=== PATIENT | male | born 1975 | race Two or more races ===

== ENCOUNTER 2023-08-22 18:46 | Inpatient (IN) | payer BC ==
[~2023-08-22] VITALS: Ht 172.7 cm; Wt 62.7 kg
[2023-08-22 19:14] LABS: Basophils # (auto) 0.3 10 ^3/uL (0-0.2); Basophils % (auto) 2.8 % (0.0-2.0); Eosinophils # (auto) 0.3 10 ^3/uL (0-0.8); Eosinophils % (auto) 3.2 % (0.0-7.0); Hemoglobin 13.1 g/dL (13.5-17.5); Lymphocytes # (auto) 2.7 10 ^3/uL (0.4-5.4); Lymphocytes % (auto) 24.7 % (10.0-50.0); Mean Corpuscular Hemoglobin 29.4 pg (28.0-32.0); Mean Corpuscular Hgb Conc. 33.7 g/dL (32.0-36.0); Mean Corpuscular Volume 87.4 fL (80.0-100.0); Monocytes # (auto) 0.9 10 ^3/uL (0-1.3); Monocytes % (auto) 8.1 % (0.0-12.0); Neutrophils # (auto) 6.6 10 ^3/uL (1.6-8.6); Neutrophils % (auto) 61.2 % (37.0-80.0); Nucleated Red Blood Cells % 0.1 %; Red Blood Cells 4.46 10^6/uL (4.5-5.90); Red Cell Distribution Width 14.1 % (11.8-14.3); White Blood Cell 10.8 10^3/uL (4.4-10.8)
[2023-08-22] MEDS: IOHEXOL 350 MG/ML 100ML IJ ONE (19:20)
[2023-08-22 19:33] LABS: Alanine Aminotransferase 14 U/L (7-40); Albumin 4.1 g/dL (3.2-4.8); Alkaline Phosphatase 97 U/L (46-116); Anion Gap 4 (5-15); Aspartate Aminotransferase 16 U/L (13-40); BUN/Creatinine Ratio 10.3 (10.0-20.0); Bilirubin, Total 0.8 mg/dL (0.2-1.0); Blood Urea Nitrogen 15 mg/dL (9-23); Calcium 9.2 mg/dL (8.7-10.4); Carbon Dioxide 28 mmol/L (20-30); Chloride 106 mmol/L (98-107); Glucose 100 mg/dL (74-106); Potassium 3.7 mmol/L (3.5-5.1); Sodium 138 mmol/L (136-145); Total Protein 7.1 g/dL (5.7-8.2)
[2023-08-22 19:40] VITALS: PULSE 104; RESP 22; O2SAT 98
[2023-08-22] MEDS: LABETALOL HCL 5 MG/ML 4ML SYRINGE IV ONE (19:53)
[2023-08-22] MEDS: LORazepam 2MG/ML-1ML VIAL IV ONE (20:56)
[2023-08-22 20:57] LABS: Urine Bacteria None Seen /hpf (None Seen)
[2023-08-22 21:04] LABS: Urine Blood Negative /uL (Negative); Urine Clarity Clear (Clear); Urine Color Colorless (Yellow); Urine Protein, UAD Negative (Negative); Urine Specific Gravity 1.015 (1.001-1.035); Urine Urobilinogen Normal (Negative); Urine WBC <1 /hpf (0 - 3)
[2023-08-22 21:23] LABS: Amphetamine Screen, Urine Neg (NEGATIVE); Benzodiazephine Screen, Urine Neg (NEGATIVE)
[2023-08-22 21:24] LABS: Barbiturate Scree,Urine Neg (NEGATIVE); Cannabinoid Screen, Urine Neg (NEGATIVE); Cocaine Screen, Urine Neg (NEGATIVE); Opiate Scree,Urine Neg (NEGATIVE); Phencyclidine Screen, Urine Neg (NEGATIVE)
[2023-08-22] MEDS ORDERED: ONDANSETRON HCL 4 MG/2 ML VIAL IV PRN (21:30)
[2023-08-22] MEDS ORDERED: MORPHINE SULFATE INJ 2 MG/ml SYRG IV PRN (21:30)
[2023-08-22] MEDS ORDERED: NITROGLYCERIN 0.4 MG SL TAB SL PRN (21:30)
[2023-08-22] MEDS ORDERED: TEMAZEPAM 15 MG CAP PO PRN (21:30)
[2023-08-22] MEDS ORDERED: ACETAMINOPHEN 325 MG TAB PO PRN (21:30)
[2023-08-22] MEDS: hydrALAZINE HCL 20 MG/ML VL IV PRN (22:20)
[2023-08-23] VITALS (10 sets, daily range): BP systolic 151–179; BP diastolic 91–109; PULSE 85–104; RESP 12–18; TEMP 97.7–98.4; O2SAT 97–99
[2023-08-23 05:21] LABS: Chloride 107 mmol/L (98-107); Potassium 3.4 mmol/L (3.5-5.1); Sodium 138 mmol/L (136-145)
[2023-08-23 05:22] LABS: Anion Gap 5 (5-15); Calcium 9.3 mg/dL (8.7-10.4); Carbon Dioxide 26 mmol/L (20-30)
[2023-08-23 05:27] LABS: BUN/Creatinine Ratio 8.1 (10.0-20.0); Blood Urea Nitrogen 12 mg/dL (9-23); Glucose 98 mg/dL (74-106)
[2023-08-23] MEDS: ASPirin 81 mg TAB PO SCH (09:57)
[2023-08-23] MEDS: LISINOPRIL 5 MG TAB PO SCH (09:58)
[2023-08-23 10:47] LABS: Magnesium 2.2 mg/dL (1.6-2.6)
[2023-08-23] MEDS: hydrALAZINE HCL 20 MG/ML VL IV PRN (13:33)
[2023-08-23] MEDS: MIDAZOLAM HCL 2MG/2ML 2ml VIAL (1mg/ml) ONE (16:23)
[2023-08-23] MEDS: LIDOCAINE VISCOUS 2% 15ML UD PO ONE (16:29)
[2023-08-23] MEDS: MIDAZOLAM HCL 2MG/2ML 2ml VIAL (1mg/ml) IV ONE (16:30)
[2023-08-23] MEDS: fentaNYL CITRATE 100 MCG/2 ML VL IV ONE (16:33)
[2023-08-23] MEDS: ATORVASTATIN 20 MG TAB PO SCH (22:09)
[2023-08-24] VITALS (9 sets, daily range): BP systolic 129–175; BP diastolic 80–108; PULSE 79–90; RESP 16–18; TEMP 97.5–98; O2SAT 96–99
[2023-08-24] MEDS: ASPirin-EC 81 mg tab PO SCH (08:27)
[2023-08-24] MEDS: CLOPIDOGREL BISULFATE 75 MG TAB PO SCH (08:28)
[2023-08-24] MEDS: NIFEdipine ER 30 MG TAB PO ONE (12:53)
[2023-08-25 05:00] VITALS: BP 187/110; PULSE 83; RESP 22; TEMP 97.8; O2SAT 97
[2023-08-25] MEDS ORDERED: hydrALAZINE HCL 20 MG/ML VL IV PRN (07:30)
[2023-08-25 08:00] VITALS: PULSE 88
[2023-08-25 08:57] VITALS: BP 140/82; PULSE 93; RESP 21; TEMP 98.1; O2SAT 98
[2023-08-25] MEDS: NIFEdipine ER 30 MG TAB PO SCH (09:57)
[2023-08-25 12:41] VITALS: BP 157/109; PULSE 94; RESP 17; TEMP 97.4; O2SAT 98
[2023-08-25] MEDS ORDERED: LISI-275 PO (14:46)
[2023-08-25] MEDS ORDERED: ATOR20TA50 PO (14:46)
[2023-08-25] MEDS ORDERED: ASPI-543 PO (14:46)
[2023-08-25] MEDS ORDERED: CLOP75TA70 PO (14:46)
[2023-08-25] MEDS ORDERED: NIFE1TAB31 PO (14:46)
== END 2023-08-25 15:34 | disposition home or self-care (01) | DRG 69 ==
LOC: ER 18:46 → TELE 21:20 → TELE-WESTW 08-23 09:29
PROVIDERS: ADMIT Nurse Practitioner; ATTEND Internal Medicine
DX: G45.9 Transient cerebral ischemic attack, unspecified (principal); I21.A1 Myocardial infarction type 2; I16.0 Hypertensive urgency; E78.5 Hyperlipidemia, unspecified; F10.10 Alcohol abuse, uncomplicated; F17.200 Nicotine dependence, unspecified, uncomplicated; F15.10 Other stimulant abuse, uncomplicated; Z79.899 Other long term (current) drug therapy; Z82.49 Family history of ischemic heart disease and other diseases of the circulatory system; Z79.82 Long term (current) use of aspirin; Z86.73 Personal history of transient ischemic attack (TIA), and cerebral infarction without residual deficits; Z83.3 Family history of diabetes mellitus; W18.39XA Other fall on same level, initial encounter; Y93.01 Activity, walking, marching and hiking; Y99.8 Other external cause status; Y92.009 Unspecified place in unspecified non-institutional (private) residence as the place of occurrence of the external cause; Y90.9 Presence of alcohol in blood, level not specified
CPT/HCPCS: 36415; 70496; 70551; 71045; 80048; 80053; 80061; 80307; 81001; 83036; 83605; 83735; 83880; 84443; 84484; 85025; 85379; 87040; 93005; 93312; 95819; 96374; 96375; 99152; G0378; J2250; J3490

== ENCOUNTER → 2023-12-06 | Outpatient (CLI) | payer BC ==
[~2023-12-06] MED LIST: ASPI-543 PO; ATOR20TA50 PO; CLOP75TA70 PO; LISI-275 PO; NIFE1TAB31 PO
[2023-12-06 10:48] LABS: Folate (Folic Acid) 9.65 ng/mL (>5.38)
== END | disposition home or self-care (01) ==
LOC: LAB 09:12
PROVIDERS: ATTEND Psychiatry & Neurology Neurology
DX: R41.3 Other amnesia (principal)
CPT/HCPCS: 82607; 82746

== ENCOUNTER → 2023-12-27 | Outpatient (CLI) | payer BC | END | disposition home or self-care (01) | LOC: XYW 10:49 | PROVIDERS: ATTEND Internal Medicine Pulmonary Disease | DX: J44.9 Chronic obstructive pulmonary disease, unspecified (principal) | CPT/HCPCS: 94060; 94727; 94729 ==

== ENCOUNTER → 2024-08-28 | Outpatient (CLI) | payer BC ==
[2024-08-28 12:07] LABS: Basophils # (auto) 0.3 10 ^3/uL (0-0.2); Basophils % (auto) 2.4 % (0.0-2.0); Eosinophils # (auto) 0.3 10 ^3/uL (0-0.8); Hemoglobin 14.8 g/dL (13.5-17.5); Lymphocytes # (auto) 2.1 10 ^3/uL (0.4-5.4); Lymphocytes % (auto) 18.4 % (10.0-50.0); Mean Corpuscular Hemoglobin 30.5 pg (28.0-32.0); Mean Corpuscular Hgb Conc. 34.4 g/dL (32.0-36.0); Mean Corpuscular Volume 88.7 fL (80.0-100.0); Monocytes # (auto) 0.8 10 ^3/uL (0-1.3); Monocytes % (auto) 6.6 % (0.0-12.0); Neutrophils # (auto) 7.9 10 ^3/uL (1.6-8.6); Neutrophils % (auto) 69.6 % (37.0-80.0); Nucleated Red Blood Cells % 0.1 %; Platelet Count (auto) 226 10^3/uL (140-450); Red Blood Cells 4.85 10^6/uL (4.5-5.90); Red Cell Distribution Width 14.3 % (11.8-14.3); White Blood Cell 11.4 10^3/uL (4.4-10.8)
[2024-08-28 12:28] LABS: Alanine Aminotransferase 34 U/L (7-40); Albumin 4.7 g/dL (3.2-4.8); Alkaline Phosphatase 102 U/L (46-116); Anion Gap 2 (5-15); Aspartate Aminotransferase 22 U/L (13-40); BUN/Creatinine Ratio 10.8 (10.0-20.0); Blood Urea Nitrogen 16 mg/dL (9-23); Calcium 9.8 mg/dL (8.7-10.4); Carbon Dioxide 25 mmol/L (20-31); Chloride 103 mmol/L (98-107); Glucose 97 mg/dL (74-106); Potassium 4.7 mmol/L (3.5-5.1); Sodium 130 mmol/L (136-145); Total Protein 7.5 g/dL (5.7-8.2)
[2024-08-28 12:29] LABS: Bilirubin, Total 0.8 mg/dL (0.2-1.0)
[2024-08-28 16:35] LABS: Triglycerides 92 mg/dL (< 150)
[2024-08-28 16:36] LABS: Cholesterol 135 mg/dL (< 200); HDL Cholesterol 43 mg/dL (40-59); LDL Cholesterol 76 mg/dL (< 100)
== END | disposition home or self-care (01) ==
LOC: LAB 11:47
PROVIDERS: ATTEND Nurse Practitioner Family
DX: I10 Essential (primary) hypertension (principal); J44.9 Chronic obstructive pulmonary disease, unspecified; Z00.01 Encounter for general adult medical examination with abnormal findings
CPT/HCPCS: 36415; 80053; 80061; 84153; 84443; 85025

== ENCOUNTER 2024-10-04 06:17 | Inpatient (IN) | payer BC ==
[~2024-10-04] VITALS: Ht 170.2 cm; Wt 51.1 kg
[2024-10-04] VITALS (43 sets, daily range): BP systolic 59–162; BP diastolic 20–102; PULSE 45–117; RESP 10–24; TEMP 84.1–99.7; O2SAT 90–100
[~2024-10-04 06:17] MED LIST changes: +ESCI1TAB36 PO; +LISI20TA56 PO
[2024-10-04 07:29] LABS: Hematocrit 13.1 % (41.0-53.0); Mean Corpuscular Hemoglobin 28.5 pg (28.0-32.0); Mean Corpuscular Volume 86.6 fL (80.0-100.0)
[2024-10-04] MEDS: SODIUM CHLORIDE 0.9% 2,000 ML IV ONE (07:34)
[2024-10-04 07:35] LABS: Hemoglobin 4.3 g/dL (13.5-17.5)
[2024-10-04 07:44] LABS: Alanine Aminotransferase 21 U/L (7-40); Alkaline Phosphatase 50 U/L (46-116); Anion Gap 13 (5-15); BUN/Creatinine Ratio 46.9 (10.0-20.0); Potassium 4.1 mmol/L (3.5-5.1)
--- NOTE | 2024-10-04 07:44 | ED.PDOC ---
History of Present Illness HPI Comments 48-year-old male BIBA with prior medical history of hypertension, high lipids, CVA-August,, currently has memory loss and the chief complaint of syncope x2. Per EMS the patient had two syncopal episodes, today, 1st one was when the patient will was walking into the restroom and the 2nd being when the patient was sitting on the ground and leaned forward. EMS state that the patient has an abrasion on the left knee, [id number] and was given 300 mL of sodium chloride in route. EMS note that the patient has been taking his medication regularly, and seen his PCP last week. Patient states on having nausea and vomiting. Patient's spouse, stating that the patient has lost his appetite, has been weak, and had a syncopal episode in the past due from standing up too fast (one week ago). In the ER the patient was hypotensive in the 87/53 and an Accu-Chek of 222. Denies chills, fever, /D, SOB, CP, neck pain, back pain. No other ass ociated symptoms, modifiers, recent injuries or sick contacts present at this time. Chief Complaint: Syncope Time Seen by MD: 06:30 Reviewed Notes: Nurses Notes, Upholstery Parts Sorter Notes, Medications, Allergies Allergies: Coded Allergies: NO KNOWN ALLERGIES (Unverified , 08/22/23) Home Meds Active Scripts Nifedipine (Nifedipine Er) 30 Mg Tab, 30 MG PO BID for 30 Days, #60 TAB 6 Refills Prov:JASE HALE DO 08/25/23 Lisinopril (Lisinopril) 5 Mg Tab, 10 MG PO DAILY for 30 Days, #60 TAB 6 Refills Prov:JASE HALE DO 08/25/23 Clopidogrel Bisulfate (CLOPIDOGREL) 75 Mg Tab, 75 MG PO DAILY for 30 Days, #30 TAB 6 Refills Prov:JASE HALE DO 08/25/23 Atorvastatin Calcium (ATORVASTATIN CALCIUM) 20 Mg Tab, 20 MG PO HS for 30 Days, #30 TAB 6 Refills Prov:JASE HALE DO 08/25/23 Aspirin (Aspir-Low) 81 Mg Tab, 81 MG PO DAILY for 30 Days, #30 TAB 1 Refill Prov:JASE HALE DO 08/25/23 Information Source: Patient, Emergency Med Personnel, Spouse Mode of Arrival: EMS Severity: Moderate Timing: Minutes Duration: Since onset, Minutes Prehospital treatment: Other (Sodium chloride) Past Medical History PAST MEDICAL HISTORY: CVA (In August of 2023, left with memory loss), High Lipids, HTN Surgical History: Denies all surgeries Family History Family History: Reviewed,noncontributory to illness, Unknown Social History Smoker: Non-Smoker Alcohol: Sober Drugs: Denies Drug Use Lives In: Home Constitutional: denies: chills, diaphoresis, fatigue, fever, malaise, sweats, weakness, others EENTM: denies: blurred vision, double vision, ear bleeding, ear discharge, ear drainage, ear pain, ear ringing, eye pain, eye redness, hearing loss, mouth pain, mouth swelling, nasal discharge, nose bleeding, nose congestion, nose pain, photophobia, tearing, throat pain, throat swelling, voice changes, others Respiratory: denies: cough, hemoptysis, orthopnea, SOB at rest, shortness of breath, SOB with excertion, stridor, wheezing, others Cardiovascular: reports: syncope; denies: chest pain, dizzy spells, diaphoresis, Dyspnea on exertion, edema, irregular heart beat, left arm pain, lightheadedness, palpitations, PND, others Gastrointestinal: reports: nausea, vomiting; denies: abdomen distended, abdominal pain, blood streaked bowels, constipated, diarrhea, dysphagia, difficulty swallowing, hematemesis, melena, poor appetite, poor fluid intake, rectal bleeding, rectal pain, others Genitourinary: denies: burning, dysuria, flank pain, frequency, hematuria, incontinence, penile discharge, penile sore, pain, testicle pain, testicle swelling, urgency, others Neurological: denies: dizziness, fainting, headache, left sided numbness, left sided weakness, numbness, paresthesia, pre-existing deficit, right sided numbness, right sided weakness, seizure, speech problems, tingling, tremors, weakness, others Musculoskeletal: denies: back pain, gout, joint pain, joint swelling, muscle pain, muscle stiffness, neck pain, others Integumetry: denies: bruises, change in color, change in hair/nails, dryness, laceration, lesions, lumps, rash, wounds, others Allergic/Immunocompromised: denies: Difficulty Healing, Frequent Infections, Hives, Itching, others Hematologic/Lymphatic: denies: anemia, blood clots, easy bleeding, easy bruising, swollen glands, others Endocrine: denies: excessive hunger, excessive sweating, excessive thirst, excessive urination, flushing, intolerance to cold, intolerance to heat, unexplained weight gain, unexplained weight loss, others Psychiatric: denies: anxiety, bipolar disorder, depression, hopeless, panic disorder, schizophrenia, sleepless, suicidal, others All Other Systems: Reviewed and Negative Physical Exam Exam Comments Pale-appearing, nontender C, T, L-spine General Appearance: Moderate Distress, Normal HEENT: Normal ENT Inspection, Pharynx Normal, TMs Normal Neck: Full Range of Motion, Non-Tender, Normal, Normal Inspection Respiratory: Chest Non-Tender, Lungs Clear, No Accessory Muscle Use, No Respiratory Distress, Normal Breath Sounds Cardiovascular: No Edema, Normal Peripheral Pulses, Regular Rate/Rhythm Breast Exam: Deferred Gastrointestinal: Non Tender, No Pulsatile Mass, Soft Genitalia: Deferred Pelvic: Deferred Rectal: Deferred Extremities: No calf tenderness, Normal inspection, Normal range of motion, Non-tender, No pedal edema, Other (Nontender CT and L-spine) Musculoskeletal : Apperance: Normal Neurologic: Alert, No Motor Deficits, Normal Affect, Normal Mood, No Sensory Deficits Cerebellar Function: Normal Reflexes: Normal Skin: Dry, Pallor, Other (Cold) Lymphatic: No Adenopathy Was a procedure done? Was a procedure done?: Yes Sedation Sedation?: Yes Informed consent obtained: Yes Sedation start time: 08:52 Sedation end time: 09:15 (Patient is still under sedation at this time) Sedation total time: Unknown due from patient being under sedation at this time Intubation Intubation size: cm (7.5 tube, 23 at lip) Informed consent obtained: Yes EKG EKG : Pulse Rate (adult): 102 [place]: Normal Cardiac Rhythm: ST, PVC's Block: None Hypertrophy: None ST: Normal Differential Dx Considerations may include: Sepsis, anemia, dehydration, gastroenteritis, electrolyte abnormality, STEMI, NSTEMI, shock, UTI, pneumonia, kidney failure, heart failure, syncope, heart block X-Ray, Labs, Meds, VS Vital Signs Date Time Temp Pulse Resp B/P (MAP) Pulse Ox O2 Delivery O2 Flow Rate FiO2 10/04/24 11:22 94.1 108 22 107/47 (67) 97 94.1 10/04/24 11:09 109 18 107/45 (65) 60 10/04/24 11:07 94.1 109 22 107/45 (65) 97 94.1 10/04/24 10:56 94.3 109 22 104/45 94.3 10/04/24 10:56 94.3 109 22 104/45 94.3 10/04/24 10:41 93.9 110 18 117/52 93.9 10/04/24 10:40 117/52 10/04/24 10:37 110 22 117/52 (73) 60 10/04/24 10:37 109 22 117/52 (73) 97 10/04/24 10:03 109 22 109/35 (59) 97 10/04/24 09:52 84.1 110 22 81/20 84.1 10/04/24 09:40 110 28 81/20 (40) 97 10/04/24 09:00 101/38 10/04/24 08:55 111 12 100 10/04/24 08:54 113 28 101/38 (59) 90 10/04/24 08:49 45 10 59/20 (33) 90 10/04/24 08:44 93.9 45 10 59/20 93.9 10/04/24 08:31 64 23 96/58 (71) 86 10/04/24 08:14 67 27 74/36 (49) 10/04/24 08:04 85 34 71/37 (48) 95 10/04/24 08:00 86 10/04/24 07:50 77/42 10/04/24 07:44 102 10/04/24 07:43 89 39 81/47 (58) 96 10/04/24 07:34 91 42 75/44 (54) 98 10/04/24 07:17 93 14 91 Nasal Cannula* 2 28 10/04/24 07:14 97.5 93 14 86/46 (59) 93 97.5 10/04/24 06:25 102 10/04/24 06:17 97.7 96 16 97/60 (72) 99 97.7 Lab Test 10/04/24 09:57 10/04/24 08:35 10/04/24 08:31 10/04/24 08:05 Range/Units Blood Gas Specimen Type Arterial Arterial Blood Gas Sample Site Right radial Left radial Blood Gas Patient Temperature 37.0 37.0 Arterial Blood Date Drawn [id number] Arterial Blood pH 6.857 *L 7.112 *L 7.350-7.450 Arterial Blood Partial Pressure CO2 51.7 H 33.8 L 35.0-48.0 mmHg Arterial Blood Partial Pressure O2 337.3 *H 89.5 83.0-108.0 mmHg Arterial Blood HCO3 9.0 L 10.5 L 21.0-28.0 mmol/L Arterial Blood Oxygen Saturation 99.3 H 90.9 L 94.0-98.0 % Arterial Blood Base Excess -23.1 L -17.3 L -2.0-3.0 mmol/L Arterial Blood Oxyhemoglobin 97.6 89.1 L 94.0-98.0 % Arterial Blood Carboxyhemoglobin 0.3 L 0.8 0.5-1.5 % Arterial Blood Methemoglobin 1.4 1.2 0.0-1.5 % Ke Test Modified Yes Blood Gas Total Hemoglobin 7.40 L 5.30 *L 13.5-17.5 g/dL Blood Gas Set Respiration Rate 12.0 Blood Gas Modality Vent - ac Nasal cannula FiO2 % 100.0 24.0 Blood Gas Tidal Volume 450.0 Blood Gas PEEP or CPAP 5.0 Blood Gas Critical Value Read Back yes yes Blood Gas Notified Whom md mary rain md Blood Gas Notified Time [id number] Blood Gas Notified By narendra roque, china roque, [place] POC Glucose 165 H 70-106 mg/dl Reticulocyte Count (auto) 5.51 H 0.5-1.5 % Hemoglobin A1c 5.6 <5.7 % A1C Troponin I High Sensitivity 359 *H </=54 ng/L Test 10/04/24 07:01 10/04/24 06:35 Range/Units White Blood Count 16.8 H 4.4-10.8 10^3/uL Red Blood Count 1.52 L 4.5-5.90 10^6/uL Hemoglobin 4.3 *L 13.5-17.5 g/dL Hematocrit 13.1 L 41.0-53.0 % Mean Corpuscular Volume 86.6 80.0-100.0 fL Mean Corpuscular Hemoglobin 28.5 28.0-32.0 pg Mean Corpuscular Hemoglobin Concent 32.9 32.0-36.0 g/dL Red Cell Distribution Width 13.1 11.8-14.3 % Platelet Count 414 140-450 10^3/uL Mean Platelet Volume 7.4 6.9-10.8 fL Neutrophils (%) (Auto) 37.0-80.0 % Lymphocytes (%) (Auto) 10.0-50.0 % Monocytes (%) (Auto) 0.0-12.0 % Basophils (%) (Auto) 0.0-2.0 % Neutrophils # (Auto) 1.6-8.6 10 ^3/uL Lymphocytes # (Auto) 0.4-5.4 10 ^3/uL Monocytes # (Auto) 0-1.3 10 ^3/uL Differential Total Cells Counted 100.0 100 Neutrophils % (Manual) 72 37.0-80.0 Band Neutrophils % (Manual) 5 Lymphocytes % (Manual) 18 10.0-50.0 Monocytes % (Manual) 5 0-12 Eosinophils % (Manual) 0 0-7 Basophils % (Manual) 0 0.0-2.0 Metamyelocytes % (manual) 0 Myelocytes % (Manual) 0 Promyelocytes % (Manual) 0 Blast Cells % (Manual) 0 Reactive Lymphocytes 0 Platelet Estimate Adequate Red Blood Cell Morphology Normal Sodium Level 122 L 136-145 mmol/L Potassium Level 4.1 3.5-5.1 mmol/L Chloride Level 92 L 98-107 mmol/L Carbon Dioxide Level 17 L 20-31 mmol/L Anion Gap 13 5-15 Blood Urea Nitrogen 99 *H 9-23 mg/dL Creatinine 2.11 H 0.700-1.30 mg/dL Glomerular Filtration Rate Calc 37 >90 mL/min BUN/Creatinine Ratio 46.9 H 10.0-20.0 Serum Glucose 219 H 74-106 mg/dL Calcium Level 7.2 L 8.7-10.4 mg/dL Iron Level 22 L 65-175 ug/dL Total Iron Binding Capacity 243 L 250-425 ug/dL Percent Iron Saturation 9.1 L 20-55 % Ferritin 47.6 22-322 ng/mL Total Bilirubin 0.3 0.2-1.0 mg/dL Aspartate Amino Transferase (AST) 21 13-40 U/L Alanine Aminotransferase (ALT) 21 7-40 U/L Alkaline Phosphatase 50 46-116 U/L Troponin I High Sensitivity 365 *H </=54 ng/L Total Protein 5.0 L 5.7-8.2 g/dL Albumin 2.9 L 3.2-4.8 g/dL POC Glucose 222 H 70-106 mg/dl Current Medications Medications (Trade) Dose Ordered Sig/Wally Route Start Time Stop Time Status Last Admin Diagnostic Test (Pha) (Accu-Chek Comfort Curve T) 1 strip ONCE ONCE 10/04/24 07:00 10/04/24 07:01 DC 10/04/24 08:32 Sodium Chloride 2,000 ml @ 1,000 mls/hr Q2H ONCE IV 10/04/24 07:00 10/04/24 08:59 DC 10/04/24 07:34 Norepinephrine Bitartrate 250 ml @ 3.75 mls/hr Q24H IV 10/04/24 08:00 10/04/24 07:50 Ceftriaxone Sodium 50 ml @ 100 mls/hr ONCE ONCE IV 10/04/24 08:00 10/04/24 08:29 DC 10/04/24 08:32 Rocuronium [employer] 100 mg ONCE ONCE IV 10/04/24 09:00 10/04/24 09:01 DC 10/04/24 09:00 Etomidate 20 mg ONCE ONCE IV 10/04/24 09:00 10/04/24 09:01 DC 10/04/24 09:00 Atropine Sulfate (Atropine Sulfate) 1 mg ONCE ONCE IV 10/04/24 09:45 10/04/24 09:46 DC 10/04/24 08:50 Fentanyl Citrate 250 ml @ 2.5 mls/hr Q24H IV 10/04/24 09:45 10/04/24 10:40 Sodium Bicarbonate 50 ml ONCE ONCE IV 10/04/24 11:30 10/04/24 11:31 DC 10/04/24 11:41 Metronidazole 100 ml @ 100 mls/hr ONCE ONCE IV 10/04/24 11:30 10/04/24 12:29 DC 10/04/24 11:45 48-year-old male presents here status post syncopal episode at home and with the EMS. I was asked to immediately see the patient upon EMS arrival as patient appeared critical. Patient was found to be pale. Blood pressure was in the low 80s on my initial evaluation after a 400 cc bolus of NS by EMS. Patient was immediately taken to a bed. Blood work has been done including a CBC CMP blood culture urine culture troponin. At this time that are multiple abnormalities in the lab work including a extremely severe hemoglobin of 4.3. He also has a leukocytosis of 16. Hyponatremia of 122, chloride level of 92, CO2 of 17 BUN of 99 with creatinine of 2. He is also very hypocalcemic. While in the ER his blood pressure but has been in the low 70s. Patient was started on Levophed IV. Patient was immediately started on sepsis protocol including blood cultures urine culture and broad-spectrum antibiotic. Unable to place a central line due to severe risk of bleeding and can not risks anymore blood loss given his low hemoglobin of 4.3. Patient was given a total of 700 cc of IV fluids prior to hemoglobin returning at 4.3. Immediately type and cross was done and he has been in close contact with blood bank for stat blood. However at this time blood pressure continues to be extremely low and undetectable despite Levophed. Black blood has been ordered and given. Despite starting Levophed, patient continued to have low blood pressure. Patient's mental status began to decline. Patient was intubated. Please see procedure note. Prior to this differential also included AAA as well as aortic dissection in addition to sepsis sepsis shock, electrolyte abnormality, small-bowel obstruction, acute coronary syndrome, dehydration, heart block, anemia. Bedside ultrasound was done unable to visualize the aorta. CT abdomen pelvis with IV contrast was finally able to be performed once we are able to increase his blood pressure and after patient was intubated. At this time there was no evidence of AAA or dissection but there was evidence of perforated viscus in the abdomen. Immediately I consulted general surgery. I spoke to Dr. Serrano. While caring for him, multiple ABGs were performed that required active intervention by me, including management of his vent. was at bedside during the entire patient care and I was able to have multiple conversations with the family including patient's brother, they are aware of the patient's critical status. He is currently full code. At this time hospitalist team has been contacted for ICU admission. Time of 1ST Reevaluation: 07:00 Reevaluation 1ST: Unchanged Reevaluation 2ND: Unchanged Patient Education/Counseling: Diagnosis, Treatment, Prognosis Family Education/Counseling: Diagnosis, Treatment, Prognosis Departure 1 Departure Time of Disposition: 08:26 Impression: Primary Impression: Shock Additional Impressions: Severe anemia Hyponatremia Acute kidney injury Syncope Qualified Codes: R55 - Syncope and collapse Altered mental status Qualified Codes: R40.4 - Transient alteration of awareness Perforated viscus NSTEMI (non-ST elevated myocardial infarction) GI bleed Qualified Codes: K92.2 - Gastrointestinal hemorrhage, unspecified Septic shock Disposition: ADMITTED INPATIENT Admit to: ICU Condition: Critical Critical Care Note Critical Care Time?: Yes (180 min-critical care time only) Critical care comment: Time spent immediately evaluating the patient upon EMS arrival to the ER as patient is unstable due to his hypotension. Patient found to be pale and hypotensive in the 80s and actively syncopized ON INITIAL EVALUATION. Multiple re-evaluations required. Multiple interventions required to stabilize the patient. Patient continued to be hypotensive during his stay requiring intensive management of care by myself including interpretation of blood work, imaging test, managing his hypotension, managing mental status, management of his care. Time spent speaking to patient, family, nursing staff, EMS, admitting team, radiology, blood bank, general surgery. Stability Stability form required: No Heart Score Heart Score: Heart Score Response (Comments) Value History Slightly Suspicious 0 EKG Repolarization Disturb 1 Age 45-64 1 Risk Factors 1 or 2 risk factors 1 Troponin 1-2 x's Normal limit 1 Total 4 I personally scribed for RALPH SANCHEZ MD ([email or web address]) on 10/04/24 at 07:44. Electronically submitted by Guerrero Molina ([facility]). I personally scribed for RALPH SANCHEZ MD ([email or web address]) on 10/04/24 at 09:15. Electronically submitted by Guerrero Molina ([email or web address]). I personally scribed for RALPH SANCHEZ MD ([email or web address]) on 10/04/24 at 11:22. Electronically submitted by Deven Rueda ([email or web address]). RALPH SANCHEZ MD October 04, 2024 07:44
[2024-10-04 07:45] LABS: Albumin 2.9 g/dL (3.2-4.8); Bilirubin, Total 0.3 mg/dL (0.2-1.0); Calcium 7.2 mg/dL (8.7-10.4); Carbon Dioxide 17 mmol/L (20-31); Chloride 92 mmol/L (98-107); Glucose 219 mg/dL (74-106); Sodium 122 mmol/L (136-145); Total Protein 5.0 g/dL (5.7-8.2)
[2024-10-04 07:46] LABS: Blood Urea Nitrogen 99 mg/dL (9-23)
[2024-10-04] MEDS: NOREPINEPHRINE 8 MG/250ML KIT 250 ML IV SCH (07:50)
[2024-10-04] MEDS: NOREPINEPHRINE 8 MG/250ML KIT 250 ML IV ONE (07:50)
[2024-10-04] MEDS: cefTRIAXone 1GM/50ML D5W 50 ML IV ONE (08:32)
[2024-10-04] MEDS: ACCU-CHEK COMFORT CURVE STRIP VI ONE (08:32)
[2024-10-04 08:36] LABS: RBC Morphology Normal; Total Cells Counted 100.0 (100)
[2024-10-04] MEDS: ETOMIDATE (2MG/ML) 20ML VIAL IV ONE ×2 (08:38→09:00)
[2024-10-04] MEDS: ROCURONIUM 10MG/ML 10ML VIAL IV ONE ×2 (08:39→09:00)
[2024-10-04 08:40] LABS: Base Excess -17.3 mmol/L (-2.0-3.0)
[2024-10-04] MEDS: ATROPINE SULF 1 MG/10ml SYR ONE (08:50)
[2024-10-04] MEDS: ATROPINE SULF 1 MG/10ml SYR IV ONE (08:50)
[2024-10-04 09:00] LABS: Iron 22.0 ug/dL (65-175)
[2024-10-04 09:08] LABS: Total Iron Binding Capacity 243.0 ug/dL (250-425)
--- NOTE | 2024-10-04 09:14 | DVH ---
US AAA SCREENING HISTORY: ro AAA COMPARISON: None TECHNIQUE: Transverse and longitudinal sonographic images were obtained of the abdominal aorta and co mmon iliac arteries with additional color and spectral doppler images of the abdominal aorta. FINDINGS: Aorta not visualized due to bowel gas. Other: Mild ascites is seen. IMPRESSION: Aorta is not seen due to bowel gas.
--- NOTE | 2024-10-04 09:38 | DVH ---
CHEST RADIOGRAPH Indication: post intubation Technique: Single frontal view of the chest was obtained COMPARISON: XY CHEST PORTABLE on DOS: 08/22/23 FINDINGS: Lines and Tubes: Endotracheal tube and enteric catheter in satisfactory position. Lungs: Clear Pleura: No effusion. No pneumothorax. Cardiomediastinal contours: Unremarkable Bones: Unremarkable IMPRESSION: Lines and tubes in satisfactory position.
[2024-10-04] MEDS: IOHEXOL 350 MG/ML 100ML IJ ONE (09:56)
[2024-10-04 10:02] LABS: Base Excess -23.1 mmol/L (-2.0-3.0)
[2024-10-04] MEDS: fentaNYL Drip 2500mCg/250mlNS 250 ML IV SCH (10:40)
--- NOTE | 2024-10-04 11:01 | DVH ---
CT HEAD WITHOUT CONTRAST INDICATION: RO BLEED EXAM DATE: 10/04/2024 10:18 AM COMPARISON: None RADIATION DOSE: CTDIvol: 32.92 mGy, DLP: 662.37 mGy*cm PROCEDURE: CT scans of the head were obtained from the vertex to the skull base. Sagittal and coronal reconstructions were provided. All CT scans at this medical facility are performed using dose modulation techniques as appropriate t o a performed exam including the following: Automated exposure control was utilized; adjustment of th e MA and/or KV according to patient size; and use of iterative reconstruction technique. FINDINGS: There is sulcal and ventricular prominence. The brainshows normal morphology and rojas-whi te matter differentiation, without intracranial hemorrhage, extra-axial fluid collection, mass effect or acute large vessel infarct. The ventricles are normal in size. The basal cisterns are patent. The skull and visible facial bones are intact. The paranasal sinuses, mastoid air cells and middle ear c avities are well-aerated. The soft tissues of the scalp are unremarkable. IMPRESSION: No acute intracranial abnormality.
--- NOTE | 2024-10-04 11:14 | DVH ---
Exam: CT CT CHEST/AB/PL W CON- IV ONLY History: ro aortic dissection/AAA Comparison Study: None Technique: Multidetector spiral CT of the chest, abdomen and pelvis was performed from lower neck to pubic symphysis. Intravenous contrast was administered during this examination. Portal venous imag ing was obtained. Axial, coronal and sagittal multiplanar reformats were performed by the technologis t on a separate workstation. Radiation Dose : 1. Chest/Abdomen/Pelvis: CTDIvol 8.88 mGy, DLP 939.73 mGy*cm. Findings: Lower neck: Normal thyroid. Lungs: Right lower lobe atelectasis. Small right pleural effusion. Heart/Vascular Structures: Normal heart size. No pericardial effusion. Lymph Nodes: No adenopathy Pleura: No pleural effusion or significant pneumothorax. Liver: The liver is normal in size. No focal lesions. Normal hepatic vascular enhancement. Gallbladder and Biliary Tree: Unremarkable Spleen: Unremarkable Pancreas: The pancreas is normal in appearance without focal lesions or abnormal enhancement. Adrenal Glands: Unremarkable Kidneys: Kidneys demonstrate normal symmetric enhancement without focal lesions, calculi or hydroneph rosis. Bladder: Unremarkable Bowel: The stomach is grossly normal in appearance. Enteritis is seen in multiple loops of small silvestre l in the left hemiabdomen. The appendix is not visualized; however, no secondary findings of acute a ppendicitis identified. Extensive intra-abdominal free air concerning for perforated viscus. Ascites: Moderate abdominopelvic ascites Lymphadenopathy: No mesenteric, retroperitoneal or periportal lymphadenopathy. Abdominal Wall and Mesentery: Unremarkable. Vasculature: The visualized abdominal aorta is normal in size and caliber. Abdominal and pelvic vess els demonstrate normal enhancement. Pelvic Organs: Urinary bladder is collapsed around a Barrios catheter. emarkable Musculoskeletal: No aggressive focal bony lesions, acute fractures or dislocation. IMPRESSION: 1. Extensive intra-abdominal free air concerning for perforated viscus. Surgical consultation is mariusz mmended. 2. Enteritis is seen in multiple loops of small bowel in the left hemiabdomen. 3. Moderate abdominopelvic ascites. 4. Small right pleural effusion. No evidence of aortic aneurysm or dissection.
[2024-10-04] MEDS: SODIUM BICARB 8.4% 50Meq/50ml SYR Vial IV ONE ×5 (11:41→14:46)
[2024-10-04] MEDS: SODIUM CHLORIDE 0.9% 1,000 ML IV SCH ×2 (11:45→21:01)
[2024-10-04] MEDS ORDERED: VANCOMYCIN PER PHARMACY 0 MG IV SCH (11:45)
[2024-10-04] MEDS ORDERED: SODIUM CHLORIDE 0.9% 1,000 ML IV SCH (11:45)
[2024-10-04] MEDS: cefTRIAXone 1GM/50ML D5W 50 ML IV SCH (11:45)
[2024-10-04] MEDS ORDERED: HYDROcodone-ACET 5/325MG TAB PO PRN (11:45)
[2024-10-04] MEDS ORDERED: ONDANSETRON HCL 4 MG/2 ML VIAL IV PRN (11:45)
[2024-10-04] MEDS ORDERED: ACETAMINOPHEN 325 MG TAB PO PRN (11:45)
[2024-10-04] MEDS ORDERED: SODIUM BICARB 50mEq/50ml Vial 150 ML in D5W 5% 1,000 ML IV ONE (11:45)
[2024-10-04] MEDS ORDERED: MORPHINE SULFATE INJ 2 MG/ml SYRG IV PRN ×2 (11:45)
[2024-10-04] MEDS ORDERED: NITROGLYCERIN 0.4 MG SL TAB SL PRN (11:45)
--- NOTE | 2024-10-04 11:53 | DVHHP2 ---
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 Per patient's Anastasia at the bedside she states that the patient has been having the will to live also decreased appetite also on antidepressants. She reports that he has not have had any hematemesis or melena or hematochezia. She states that patient does smoke, does not drink, and does not use drugs. Upon examination patient intubated and on vent. Unable to obtain further history from patient. Cardiovascular: HTN, hyperipidemia SLOT KEY PERSON: CVA Past Medical History Memory loss Past Surgical History: Other (Left knee surgery) Family History: Cancer, Other (Dad with [place] and , mom with emphysema and lung cancer) Smoke: 1 pack per day ALCOHOL: none Drugs: None Lives: with Family Domestic Violence: Neg Review of Systems Constitutional: Yes: Other Allergies: Coded Allergies: NO KNOWN ALLERGIES (Unverified , 08/22/23) Medications Current Medications Medications Dose Ordered Sig/Wally Route Start Time Stop Time Status Last Admin Dose Admin Norepinephrine Bitartrate 250 ml @ 3.75 mls/hr Q24H IV 10/04/24 08:00 10/04/24 07:50 3.75 MLS/HR Fentanyl Citrate 250 ml @ 2.5 mls/hr Q24H IV 10/04/24 09:45 Exam Vital Signs Vital Signs Date Time Temp Pulse Resp B/P (MAP) Pulse Ox O2 Delivery O2 Flow Rate FiO2 10/04/24 11:09 109 18 107/45 (65) 60 10/04/24 10:56 94.3 94.3 10/04/24 08:49 90 10/04/24 07:17 Nasal Cannula* 2 Abdominal: Soft Labs/Xrays Labs Test 10/04/24 09:57 10/04/24 08:31 10/04/24 08:05 10/04/24 07:01 Range/Units Blood Gas Specimen Type Arterial Blood Gas Sample Site Right radial Blood Gas Patient Temperature 37.0 Arterial Blood Date Drawn [id number] Arterial Blood pH 6.857 *L 7.350-7.450 Arterial Blood Partial Pressure CO2 51.7 H 35.0-48.0 mmHg Arterial Blood Partial Pressure O2 337.3 *H 83.0-108.0 mmHg Arterial Blood HCO3 9.0 L 21.0-28.0 mmol/L Arterial Blood Oxygen Saturation 99.3 H 94.0-98.0 % Arterial Blood Base Excess -23.1 L -2.0-3.0 mmol/L Arterial Blood Oxyhemoglobin 97.6 94.0-98.0 % Arterial Blood Carboxyhemoglobin 0.3 L 0.5-1.5 % Arterial Blood Methemoglobin 1.4 0.0-1.5 % Ke Test Modified Blood Gas Total Hemoglobin 7.40 L 13.5-17.5 g/dL Blood Gas Set Respiration Rate 12.0 Blood Gas Modality Vent - ac FiO2 % 100.0 Blood Gas Tidal Volume 450.0 Blood Gas PEEP or CPAP 5.0 Blood Gas Critical Value Read Back yes Blood Gas Notified Whom mary brock md Blood Gas Notified Time [id number] Blood Gas Notified By narendra roque, [place] POC Glucose 165 H 70-106 mg/dl Reticulocyte Count (auto) 5.51 H 0.5-1.5 % Troponin I High Sensitivity 359 *H </=54 ng/L White Blood Count 16.8 H 4.4-10.8 10^3/uL Red Blood Count 1.52 L 4.5-5.90 10^6/uL Hemoglobin 4.3 *L 13.5-17.5 g/dL Hematocrit 13.1 L 41.0-53.0 % Mean Corpuscular Volume 86.6 80.0-100.0 fL Mean Corpuscular Hemoglobin 28.5 28.0-32.0 pg Mean Corpuscular Hemoglobin Concent 32.9 32.0-36.0 g/dL Red Cell Distribution Width 13.1 11.8-14.3 % Platelet Count 414 140-450 10^3/uL Mean Platelet Volume 7.4 6.9-10.8 fL Neutrophils (%) (Auto) 37.0-80.0 % Lymphocytes (%) (Auto) 10.0-50.0 % Monocytes (%) (Auto) 0.0-12.0 % Basophils (%) (Auto) 0.0-2.0 % Neutrophils # (Auto) 1.6-8.6 10 ^3/uL Lymphocytes # (Auto) 0.4-5.4 10 ^3/uL Monocytes # (Auto) 0-1.3 10 ^3/uL Differential Total Cells Counted 100.0 100 Neutrophils % (Manual) 72 37.0-80.0 Band Neutrophils % (Manual) 5 Lymphocytes % (Manual) 18 10.0-50.0 Monocytes % (Manual) 5 0-12 Eosinophils % (Manual) 0 0-7 Basophils % (Manual) 0 0.0-2.0 Metamyelocytes % (manual) 0 Myelocytes % (Manual) 0 Promyelocytes % (Manual) 0 Blast Cells % (Manual) 0 Reactive Lymphocytes 0 Platelet Estimate Adequate Red Blood Cell Morphology Normal Sodium Level 122 L 136-145 mmol/L Potassium Level 4.1 3.5-5.1 mmol/L Chloride Level 92 L 98-107 mmol/L Carbon Dioxide Level 17 L 20-31 mmol/L Anion Gap 13 5-15 Blood Urea Nitrogen 99 *H 9-23 mg/dL Creatinine 2.11 H 0.700-1.30 mg/dL Glomerular Filtration Rate Calc 37 >90 mL/min BUN/Creatinine Ratio 46.9 H 10.0-20.0 Serum Glucose 219 H 74-106 mg/dL Calcium Level 7.2 L 8.7-10.4 mg/dL Iron Level 22 L 65-175 ug/dL Total Iron Binding Capacity 243 L 250-425 ug/dL Percent Iron Saturation 9.1 L 20-55 % Ferritin 47.6 22-322 ng/mL Total Bilirubin 0.3 0.2-1.0 mg/dL Aspartate Amino Transferase (AST) 21 13-40 U/L Alanine Aminotransferase (ALT) 21 7-40 U/L Alkaline Phosphatase 50 46-116 U/L Total Protein 5.0 L 5.7-8.2 g/dL Albumin 2.9 L 3.2-4.8 g/dL CHEST RADIOGRAPH Indication: post intubation Technique: Single frontal view of the chest was obtained COMPARISON: XY CHEST PORTABLE on DOS: 08/22/23 FINDINGS: Lines and Tubes: Endotracheal tube and enteric catheter in satisfactory position. Lungs: Clear Pleura: No effusion. No pneumothorax. Cardiomediastinal contours: Unremarkable Bones: Unremarkable IMPRESSION: Lines and tubes in satisfactory position. Exam: CT CT CHEST/AB/PL W CON- IV ONLY History: ro aortic dissection/AAA Comparison Study: None Technique: Multidetector spiral CT of the chest, abdomen and pelvis was performed from lower neck to pubic symphysis. Intravenous contrast was administered during this examination. Portal venous imaging was obtained. Axial, coronal and sagittal multiplanar reformats were performed by the technologist on a separate workstation. Radiation Dose : 1. Chest/Abdomen/Pelvis: CTDIvol 8.88 mGy, DLP 939.73 mGy*cm. Findings: Lower neck: Normal thyroid. Lungs: Right lower lobe atelectasis. Small right pleural effusion. Heart/Vascular Structures: Normal heart size. No pericardial effusion. Lymph Nodes: No adenopathy Pleura: No pleural effusion or significant pneumothorax. Liver: The liver is normal in size. No focal lesions. Normal hepatic vascular enhancement. Gallbladder and Biliary Tree: Unremarkable Spleen: Unremarkable Pancreas: The pancreas is normal in appearance without focal lesions or abnormal enhancement. Adrenal Glands: Unremarkable Kidneys: Kidneys demonstrate normal symmetric enhancement without focal lesions, calculi or hydronephrosis. Bladder: Unremarkable Bowel: The stomach is grossly normal in appearance. Enteritis is seen in multiple loops of small bowel in the left hemiabdomen. The appendix is not visualized; however, no secondary findings of acute appendicitis identified. Extensive intra-abdominal free air concerning for perforated viscus. Ascites: Moderate abdominopelvic ascites Lymphadenopathy: No mesenteric, retroperitoneal or periportal lymphadenopathy. Abdominal Wall and Mesentery: Unremarkable. Vasculature: The visualized abdominal aorta is normal in size and caliber. Abdominal and pelvic vessels demonstrate normal enhancement. Pelvic Organs: Urinary bladder is collapsed around a Barrios catheter. emarkable Musculoskeletal: No aggressive focal bony lesions, acute fractures or dislocation. IMPRESSION: 1. Extensive intra-abdominal free air concerning for perforated viscus. Surgical consultation is recommended. 2. Enteritis is seen in multiple loops of small bowel in the left hemiabdomen. 3. Moderate abdominopelvic ascites. 4. Small right pleural effusion. US AAA SCREENING HISTORY: ro AAA COMPARISON: None TECHNIQUE: Transverse and longitudinal sonographic images were obtained of the abdominal aorta and common iliac arteries with additional color and spectral doppler images of the abdominal aorta. FINDINGS: Aorta not visualized due to bowel gas. Other: Mild ascites is seen. IMPRESSION: Aorta is not seen due to bowel gas CT HEAD WITHOUT CONTRAST INDICATION: RO BLEED EXAM DATE: 10/04/2024 10:18 AM COMPARISON: None RADIATION DOSE: CTDIvol: 32.92 mGy, DLP: 662.37 mGy*cm PROCEDURE: CT scans of the head were obtained from the vertex to the skull base. Sagittal and coronal reconstructions were provided. All CT scans at this medical facility are performed using dose modulation techniques as appropriate to a performed exam including the following: Automated exposure control was utilized; adjustment of the MA and/or KV according to patient size; and use of iterative reconstruction technique. FINDINGS: There is sulcal and ventricular prominence. The brainshows normal morphology and rojas-white matter differentiation, without intracranial hemorrhage, extra-axial fluid collection, mass effect or acute large vessel infarct. The ventricles are normal in size. The basal cisterns are patent. The skull and visible facial bones are intact. The paranasal sinuses, mastoid air cells and middle ear cavities are well-aerated. The soft tissues of the scalp are unremarkable. IMPRESSION: No acute intracranial abnormality. Assessment/Plan Assessment/Plan Assessment Acute hypoxic respiratory failure Probable Perforated viscus Enteritis Moderate abdominopelvic ascites Small right pleural effusion Leukocytosis probable sirs versus sepsis Severe anemia Hyperglycemia Azotemia History of hypertension History of hyperlipidemia History of CVA with no deficits in August 2023 History of memory loss History of left knee surgery Plan Admit to ICU Vasopressors team maps greater than 65 Sedation Type and screen Transfuse PRBCs for hemoglobin less than 7.0 IV antibiotics-ceftriaxone + vancomycin IV fluids Intubated on vent CT head noted Trend troponins CT abdomen, pelvis, and chest noted NS 2 L given ED Ultrasound abdomen noted ABG Lactic level Ferritin Reticulocyte Iron panel Manual differential Urine culture Blood cultures UA EKG UDS Home medications reconciled DVT prophylaxis-hold anti coags PUD prophylaxis-PPIs Discussed plan of care with patient's spouse and nurse Nephro consult Pulmonary consult General surgery consult Consider cardiac consult if troponins trend up Plan discussed with: Spouse My Orders Orders - REBECCA JACOBS Procedure Category Date Status Time Admit ADMIT 10/04/24 Transmitted 11:33 Allergies CINTHIA 10/04/24 In Process 11:33 Code Status CODE 10/04/24 Transmitted 11:33 0.9% Ns 1000 Ml PHA 10/04/24 Transmitted 11:45 Hydrocodone-Acet PHA 10/04/24 Transmitted 5/325mg Tab (Tresckow 11:45 Ondansetron Hcl PHA 10/04/24 Transmitted (Zofran) 11:45 Complete Blood Count LAB 10/05/24 Verified 04:00 Comprehensive LAB 10/05/24 Verified Metabolic Panel 04:00 Npo (Nothing By DIET 10/04/24 Transmitted Mouth) Diet Lunch Acetaminophen Tablet PHA 10/04/24 Transmitted (Tylenol Tablet) 11:45 Morphine Sulfate PHA 10/04/24 Transmitted Injection 11:45 Nitroglycerin PHA 10/04/24 Transmitted Sublingual (Ntrostat 11:45 Morphine Sulfate PHA 10/04/24 Transmitted Injection 11:45 Stat Ekg For Chest CINTHIA 10/04/24 In Process Pain 11:33 Notify Md Of Changes CINTHIA 10/04/24 In Process From Base 11:33 Oxide Furnace Tender For CINTHIA 10/04/24 In Process 24 Hours 11:33 Emergency Dysrhythmia [facility] 10/04/24 In Process Protocol 11:33 Rhythm Strips Once [facility] 10/04/24 In Process Every Shift 11:33 Oxygen By Nasal RT 10/04/24 Transmitted Cannula 11:33 Glucose Blood PHA 10/04/24 Transmitted (Accu-Chek Comfort 12:00 Mild Sliding Scale PHA 10/04/24 Transmitted Npo - Q6hr 12:00 Dextrose 50% Syringe PHA 10/04/24 Transmitted 11:45 Hemoglobin A1c LAB 10/04/24 Transmitted 11:33 Date of Service: October 04, 2024 Billing Provider: REBECCA JACOBS Common Visit Codes: [id number] INP/OBS CARE (HIGH) REBECCA JACOBS October 04, 2024 11:53
[2024-10-04] MEDS: VASOPRESSIN 20 UNITS in SODIUM CHL 0.9% 99 ML IV SCH ×2 (12:00→21:17)
[2024-10-04] MEDS ORDERED: NOREPINEPHRINE 8 MG/250ML KIT 250 ML IV SCH (12:00)
[2024-10-04] MEDS: SODIUM BICARB 8.4% 50Meq/50ml SYR INJ ONE (12:32)
--- NOTE | 2024-10-04 12:33 | DVHINCON2 ---
Date of service: October 04, 2024 History of Present Illness 48-year-old male with a history of CVA last year and emphysema found passed out by the family this morning. Per , patient has been complaining of some constipation for the past several days. On admission patient was found to be severely hypotensive and hyponatremic and severely anemic as well. He has since received multiple units of PRBC and was intubated. CT of the abdomen and pelvis showed perforated viscus and surgery was consulted. Past Medical History Hypertension. CVA. Emphysema. Past Surgical History Knee surgery. Family History: Alcoholism G8 MOTHER FH: heart disease FH: lung cancer Family History Noncontributory Social History Long history of tobacco and alcohol use. No IV drug use. Allergies: Coded Allergies: NO KNOWN ALLERGIES (Unverified , 08/22/23) Home Meds Active Scripts Nifedipine (Nifedipine Er) 30 Mg Tab, 30 MG PO BID for 30 Days, #60 TAB 6 Refills Prov:JASE HALE DO 08/25/23 Lisinopril (Lisinopril) 5 Mg Tab, 10 MG PO DAILY for 30 Days, #60 TAB 6 Refills Prov:JASE HALE DO 08/25/23 Clopidogrel Bisulfate (CLOPIDOGREL) 75 Mg Tab, 75 MG PO DAILY for 30 Days, #30 TAB 6 Refills Prov:JASE HALE DO 08/25/23 Atorvastatin Calcium (ATORVASTATIN CALCIUM) 20 Mg Tab, 20 MG PO HS for 30 Days, #30 TAB 6 Refills Prov:JASE HALE DO 08/25/23 Aspirin (Aspir-Low) 81 Mg Tab, 81 MG PO DAILY for 30 Days, #30 TAB 1 Refill Prov:JASE HALE DO 08/25/23 Current Medications Current Medications Medications (Trade) Dose Ordered Sig/Wally Route PRN Reason Start Time Stop Time Status Last Admin Norepinephrine Bitartrate 250 ml @ 3.75 mls/hr Q24H IV 10/04/24 08:00 10/04/24 07:50 Fentanyl Citrate 250 ml @ 2.5 mls/hr Q24H IV 10/04/24 09:45 10/04/24 10:40 Sodium Chloride 1,000 ml @ 100 mls/hr Q10H IV 10/04/24 11:45 10/04/24 12:19 DC Acetaminophen/ Hydrocodone Bitart ([place] 5/325MG Tab) 1 tab Q4HP PRN PO MODERATE PAIN (4-6 PAIN SCALE) 10/04/24 11:45 Ondansetron HCl (Zofran) 4 mg Q4HP PRN IV NAUSEA / VOMITING 10/04/24 11:45 Acetaminophen (Tylenol Tablet) 650 mg Q6HP PRN PO PAIN SCALE 1-3 OR TEMP>100.4 10/04/24 11:45 Morphine Sulfate 2 mg Q4HPRN PRN IV SEVERE PAIN (7-10 PAIN SCALE) 10/04/24 11:45 Nitroglycerin (Ntrostat Sublingual) 0.4 mg Q5MINP PRN SL FOR CHEST PAIN 10/04/24 11:45 Morphine Sulfate 2 mg Q30M PRN IV FOR CHEST PAIN 10/04/24 11:45 Diagnostic Test (Pha) (Accu-Chek Comfort Curve T) 1 strip Q6HR 10/04/24 12:00 Insulin Human Regular (InsuLIN R) Q6HR SC 10/04/24 12:00 Dextrose 50 ml UD PRN IV Blood Sugar LESS THAN 60 10/04/24 11:45 Atorvastatin Calcium (Lipitor) 20 mg HS PO 10/04/24 22:00 Sodium Chloride 1,000 ml @ 150 mls/hr Q6H40M IV 10/04/24 11:45 Vancomycin HCl 0 ml @ 0 mls/hr UD IV 10/04/24 11:45 UNV Ceftriaxone Sodium 50 ml @ 100 mls/hr DAILY@09 IV 10/04/24 11:45 Norepinephrine Bitartrate 250 ml @ 3.75 mls/hr Q24H IV 10/04/24 12:00 10/04/24 12:23 DC Vasopressin 20 units/Sodium Chloride 100 ml @ 9 mls/hr Q11H7M IV 10/04/24 12:00 Vital Signs Vital Signs Date Time Temp Pulse Resp B/P (MAP) Pulse Ox O2 Delivery O2 Flow Rate FiO2 10/04/24 11:09 109 18 107/45 (65) 60 10/04/24 10:56 94.3 94.3 10/04/24 08:49 90 10/04/24 07:17 Nasal Cannula* 2 Physical Exam GEN: Thin male intubated. Comatose. HEENT: Normocephalic atraumatic. Moist mucous membranes. Anicteric sclerae. CV: Tachycardic but regular rhythm Respiratory: Coarse breath sounds ABD: Soft. Minimal distention. Poor exam due to patient's altered mental status. CT of the abdomen and pelvis: Extensive intra-abdominal free air concerning for perforated viscus. Enteritis seen in multiple loops of small bowel in the left hemiabdomen with moderate abdominal pelvic ascites. Labs/Diagnostic Data Labs Test 10/04/24 09:57 10/04/24 08:31 10/04/24 08:05 10/04/24 07:01 Range/Units Blood Gas Specimen Type Arterial Blood Gas Sample Site Right radial Blood Gas Patient Temperature 37.0 Arterial Blood Date Drawn [id number] Arterial Blood pH 6.857 *L 7.350-7.450 Arterial Blood Partial Pressure CO2 51.7 H 35.0-48.0 mmHg Arterial Blood Partial Pressure O2 337.3 *H 83.0-108.0 mmHg Arterial Blood HCO3 9.0 L 21.0-28.0 mmol/L Arterial Blood Oxygen Saturation 99.3 H 94.0-98.0 % Arterial Blood Base Excess -23.1 L -2.0-3.0 mmol/L Arterial Blood Oxyhemoglobin 97.6 94.0-98.0 % Arterial Blood Carboxyhemoglobin 0.3 L 0.5-1.5 % Arterial Blood Methemoglobin 1.4 0.0-1.5 % Ke Test Modified Blood Gas Total Hemoglobin 7.40 L 13.5-17.5 g/dL Blood Gas Set Respiration Rate 12.0 Blood Gas Modality Vent - ac FiO2 % 100.0 Blood Gas Tidal Volume 450.0 Blood Gas PEEP or CPAP 5.0 Blood Gas Critical Value Read Back yes Blood Gas Notified Whom mary brock md Blood Gas Notified Time [id number] Blood Gas Notified By narendra roque rrt POC Glucose 165 H 70-106 mg/dl Reticulocyte Count (auto) 5.51 H 0.5-1.5 % Troponin I High Sensitivity 359 *H </=54 ng/L White Blood Count 16.8 H 4.4-10.8 10^3/uL Red Blood Count 1.52 L 4.5-5.90 10^6/uL Hemoglobin 4.3 *L 13.5-17.5 g/dL Hematocrit 13.1 L 41.0-53.0 % Mean Corpuscular Volume 86.6 80.0-100.0 fL Mean Corpuscular Hemoglobin 28.5 28.0-32.0 pg Mean Corpuscular Hemoglobin Concent 32.9 32.0-36.0 g/dL Red Cell Distribution Width 13.1 11.8-14.3 % Platelet Count 414 140-450 10^3/uL Mean Platelet Volume 7.4 6.9-10.8 fL Neutrophils (%) (Auto) 37.0-80.0 % Lymphocytes (%) (Auto) 10.0-50.0 % Monocytes (%) (Auto) 0.0-12.0 % Basophils (%) (Auto) 0.0-2.0 % Neutrophils # (Auto) 1.6-8.6 10 ^3/uL Lymphocytes # (Auto) 0.4-5.4 10 ^3/uL Monocytes # (Auto) 0-1.3 10 ^3/uL Differential Total Cells Counted 100.0 100 Neutrophils % (Manual) 72 37.0-80.0 Band Neutrophils % (Manual) 5 Lymphocytes % (Manual) 18 10.0-50.0 Monocytes % (Manual) 5 0-12 Eosinophils % (Manual) 0 0-7 Basophils % (Manual) 0 0.0-2.0 Metamyelocytes % (manual) 0 Myelocytes % (Manual) 0 Promyelocytes % (Manual) 0 Blast Cells % (Manual) 0 Reactive Lymphocytes 0 Platelet Estimate Adequate Red Blood Cell Morphology Normal Sodium Level 122 L 136-145 mmol/L Potassium Level 4.1 3.5-5.1 mmol/L Chloride Level 92 L 98-107 mmol/L Carbon Dioxide Level 17 L 20-31 mmol/L Anion Gap 13 5-15 Blood Urea Nitrogen 99 *H 9-23 mg/dL Creatinine 2.11 H 0.700-1.30 mg/dL Glomerular Filtration Rate Calc 37 >90 mL/min BUN/Creatinine Ratio 46.9 H 10.0-20.0 Serum Glucose 219 H 74-106 mg/dL Calcium Level 7.2 L 8.7-10.4 mg/dL Iron Level 22 L 65-175 ug/dL Total Iron Binding Capacity 243 L 250-425 ug/dL Percent Iron Saturation 9.1 L 20-55 % Ferritin 47.6 22-322 ng/mL Total Bilirubin 0.3 0.2-1.0 mg/dL Aspartate Amino Transferase (AST) 21 13-40 U/L Alanine Aminotransferase (ALT) 21 7-40 U/L Alkaline Phosphatase 50 46-116 U/L Total Protein 5.0 L 5.7-8.2 g/dL Albumin 2.9 L 3.2-4.8 g/dL Assessment 1. Septic shock from perforated viscus with peritonitis 2. Severe anemia 3. 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 NSTEMI Plan/Recommendation 1. We will try to fluid resuscitate the patient prior to surgery. 2. Once more stable, he will be scheduled for expiratory laparotomy. Informed consent: The surgery and its risks including but not limited to infection, bleeding requiring more blood transfusion including risk of hepatitis or HIV infection, possible perioperative DE or stroke, possibility that he may not survive through the surgery were explained to the patient's . All questions were answered to her satisfaction. She expressed verbal understanding of the surgery and the poor prognosis for survival based on his current clinical condition. She expressed verbal understanding and wished to proceed with the surgery knowing the risks. Plan discussed with: Spouse SAMMIE LEONARDO MD October 04, 2024 12:33
[2024-10-04 13:10] LABS: INR 1.25 (0.9-1.15); Partial Thromboplastin Time 37.1 SEC (24.5-34.5); Prothrombin Time 13.0 sec (9.3-11.8)
[2024-10-04 13:16] LABS: Lactic Acid w/Reflex 3.0 mmol/L (0.4-2.0)
[2024-10-04] MEDS ORDERED: fentaNYL CITRATE 100 MCG/2 ML VL ONE (13:41)
[2024-10-04] MEDS ORDERED: MIDAZOLAM HCL 2MG/2ML 2ml VIAL (1mg/ml) ONE ×3 (13:41→16:07)
[2024-10-04] MEDS ORDERED: HYDROmorphone HCL 2 MG/ML VL/or syr ONE (13:41)
[2024-10-04] MEDS: ALBUMIN 5% 750 ML IV ONE (13:45)
[2024-10-04] MEDS ORDERED: SODIUM BICARB 8.4% 50Meq/50ml SYR Vial IV PRN (13:45)
[2024-10-04] MEDS: ALBUMIN 25% 100 ML IV ONE (13:46)
[2024-10-04] MEDS: CALCIUM GLUC 1,000mg/50ml-NS 50 ML IV ONE (13:50)
[2024-10-04 13:52] LABS: Base Excess -12.3 mmol/L (-2.0-3.0)
[2024-10-04] MEDS: ACCU-CHEK COMFORT CURVE STRIP VI SCH (14:04)
[2024-10-04] MEDS: InsuLIN REG 1unit/0.01ml Soln (100units/ml) SC SCH (14:09)
[2024-10-04] MEDS: DEXTROSE (50%) 50ML SYRG IV PRN (14:10)
[2024-10-04] MEDS: D5W/SOD CHLO 0.9% 1,000 ML IV SCH (14:15)
--- NOTE | 2024-10-04 14:47 | DVHINCON2 ---
Date of service: October 04, 2024 Reason for Consultation arnel History of Present Illness 48 years old male with past medical history of CVA, dyslipidemia, hypertension, left knee surgery presented with chief complaints of constipation for week, not feeling well and weakness,, patient did not come to hospital however he went to his primary care doctor Per patient's who is bedside patient is very stubborn and does not want to come on arrival his hemoglobin found To to be very low needing transfusions He is currently intubated and sedated and on vasopressors His is bedside Denies having kidney problems Past Medical History As per HPI Allergies: Coded Allergies: NO KNOWN ALLERGIES (Unverified , 08/22/23) Home Meds Active Scripts Nifedipine (Nifedipine Er) 30 Mg Tab, 30 MG PO BID for 30 Days, #60 TAB 6 Refills Prov:JASE HALE DO 08/25/23 Lisinopril (Lisinopril) 5 Mg Tab, 10 MG PO DAILY for 30 Days, #60 TAB 6 Refills Prov:JASE HALE DO 08/25/23 Clopidogrel Bisulfate (CLOPIDOGREL) 75 Mg Tab, 75 MG PO DAILY for 30 Days, #30 TAB 6 Refills Prov:JASE HALE DO 08/25/23 Atorvastatin Calcium (ATORVASTATIN CALCIUM) 20 Mg Tab, 20 MG PO HS for 30 Days, #30 TAB 6 Refills Prov:JASE HALE DO 08/25/23 Aspirin (Aspir-Low) 81 Mg Tab, 81 MG PO DAILY for 30 Days, #30 TAB 1 Refill Prov:JASE HALE DO 08/25/23 Current Medications Current Medications Medications (Trade) Dose Ordered Sig/Wally Route PRN Reason Start Time Stop Time Status Last Admin Norepinephrine Bitartrate 250 ml @ 3.75 mls/hr Q24H IV 10/04/24 08:00 10/04/24 07:50 Fentanyl Citrate 250 ml @ 2.5 mls/hr Q24H IV 10/04/24 09:45 10/04/24 10:40 Sodium Chloride 1,000 ml @ 100 mls/hr Q10H IV 10/04/24 11:45 10/04/24 12:19 DC Acetaminophen/ Hydrocodone Bitart (Plain 5/325MG Tab) 1 tab Q4HP PRN PO MODERATE PAIN (4-6 PAIN SCALE) 10/04/24 11:45 Ondansetron HCl (Zofran) 4 mg Q4HP PRN IV NAUSEA / VOMITING 10/04/24 11:45 Acetaminophen (Tylenol Tablet) 650 mg Q6HP PRN PO PAIN SCALE 1-3 OR TEMP>100.4 10/04/24 11:45 Morphine Sulfate 2 mg Q4HPRN PRN IV SEVERE PAIN (7-10 PAIN SCALE) 10/04/24 11:45 Nitroglycerin (Ntrostat Sublingual) 0.4 mg Q5MINP PRN SL FOR CHEST PAIN 10/04/24 11:45 Morphine Sulfate 2 mg Q30M PRN IV FOR CHEST PAIN 10/04/24 11:45 Diagnostic Test (Pha) (Accu-Chek Comfort Curve T) 1 strip Q6HR 10/04/24 12:00 10/04/24 14:04 Insulin Human Regular (InsuLIN R) Q6HR SC 10/04/24 12:00 Dextrose 50 ml UD PRN IV Blood Sugar LESS THAN 60 10/04/24 11:45 Atorvastatin Calcium (Lipitor) 20 mg HS PO 10/04/24 22:00 Sodium Chloride 1,000 ml @ 150 mls/hr Q6H40M IV 10/04/24 11:45 10/04/24 11:45 Vancomycin HCl 0 ml @ 0 mls/hr UD IV 10/04/24 11:45 Ceftriaxone Sodium 50 ml @ 100 mls/hr DAILY@09 IV 10/04/24 11:45 Norepinephrine Bitartrate 250 ml @ 3.75 mls/hr Q24H IV 10/04/24 12:00 10/04/24 12:23 DC Vasopressin 20 units/Sodium Chloride 100 ml @ 9 mls/hr Q11H7M IV 10/04/24 12:00 Vancomycin HCl 250 ml @ 250 mls/hr Q1H IV 10/04/24 13:00 10/04/24 14:59 Sodium Bicarbonate 50 ml PRN PRN IV SBP>140 10/04/24 13:45 UNV Dextrose/Sodium Chloride 1,000 ml @ 75 mls/hr [id number] IV 10/04/24 14:15 Family History: Alcoholism G8 MOTHER FH: heart disease FH: lung cancer Review of Systems As per HPI H&P Exam Vital Signs/I&O Vital Sign Date Time Temp Pulse Resp B/P (MAP) Pulse Ox O2 Delivery O2 Flow Rate FiO2 10/04/24 14:16 115 24 90/48 (62) 100 10/04/24 13:57 50 10/04/24 12:31 93.9 93.9 10/04/24 07:17 Nasal Cannula* 2 Physical Exam General-intubated and sedated HEENT-normocephalic, no icterus, no pallor, neck supple Respiratory-fair air entry bilateral, no rhonchi, no wheeze [id number] heard, no murmurs appreciated No pedal edema Labs/Diagnostic Data Labs/Diagnostic Data Laboratory Tests Test 10/04/24 13:30 10/04/24 12:39 10/04/24 09:57 10/04/24 08:35 Range/Units Blood Gas Specimen Type Arterial Arterial Arterial Blood Gas Sample Site Arterial line Right radial Left radial Blood Gas Patient Temperature 37.0 37.0 37.0 Arterial Blood Date Drawn [id number] Arterial Blood pH 7.082 *L 6.857 *L 7.112 *L 7.350-7.450 Arterial Blood Partial Pressure CO2 60.9 *H 51.7 H 33.8 L 35.0-48.0 mmHg Arterial Blood Partial Pressure O2 162.5 H 337.3 *H 89.5 83.0-108.0 mmHg Arterial Blood HCO3 17.7 L 9.0 L 10.5 L 21.0-28.0 mmol/L Arterial Blood Oxygen Saturation 98.5 H 99.3 H 90.9 L 94.0-98.0 % Arterial Blood Base Excess -12.3 L -23.1 L -17.3 L -2.0-3.0 mmol/L Arterial Blood Oxyhemoglobin 97.4 97.6 89.1 L 94.0-98.0 % Arterial Blood Carboxyhemoglobin 0.3 L 0.3 L 0.8 0.5-1.5 % Arterial Blood Methemoglobin 0.8 1.4 1.2 0.0-1.5 % Ke Test N/a Modified Yes Blood Gas Total Hemoglobin 11.30 L 7.40 L 5.30 *L 13.5-17.5 g/dL Blood Gas Set Respiration Rate 18.0 12.0 Blood Gas Modality Vent - ac Vent - ac Nasal cannula FiO2 % 60.0 100.0 24.0 Blood Gas Tidal Volume 450.0 450.0 Blood Gas PEEP or CPAP 5.0 5.0 Blood Gas Critical Value Read Back Yes yes yes Blood Gas Notified Whom md mary Ellis md Blood Gas Notified Time [id number] Blood Gas Notified By narendra roque, shredder operator narendra roque, shredder operator Prothrombin Time 13.0 H 9.3-11.8 sec Prothrombin Time INR 1.25 H 0.9-1.15 Activated Partial Thromboplast Time 37.1 H 24.5-34.5 SEC Lactic Acid Level 3.0 *H 0.4-2.0 mmol/L Test 10/04/24 08:31 10/04/24 08:05 10/04/24 07:01 10/04/24 06:35 Range/Units POC Glucose 165 H 222 H 70-106 mg/dl Reticulocyte Count (auto) 5.51 H 0.5-1.5 % Hemoglobin A1c 5.6 <5.7 % A1C Troponin I High Sensitivity 359 *H 365 *H </=54 ng/L White Blood Count 16.8 H 4.4-10.8 10^3/uL Red Blood Count 1.52 L 4.5-5.90 10^6/uL Hemoglobin 4.3 *L 13.5-17.5 g/dL Hematocrit 13.1 L 41.0-53.0 % Mean Corpuscular Volume 86.6 80.0-100.0 fL Mean Corpuscular Hemoglobin 28.5 28.0-32.0 pg Mean Corpuscular Hemoglobin Concent 32.9 32.0-36.0 g/dL Red Cell Distribution Width 13.1 11.8-14.3 % Platelet Count 414 140-450 10^3/uL Mean Platelet Volume 7.4 6.9-10.8 fL Neutrophils (%) (Auto) 37.0-80.0 % Lymphocytes (%) (Auto) 10.0-50.0 % Monocytes (%) (Auto) 0.0-12.0 % Basophils (%) (Auto) 0.0-2.0 % Neutrophils # (Auto) 1.6-8.6 10 ^3/uL Lymphocytes # (Auto) 0.4-5.4 10 ^3/uL Monocytes # (Auto) 0-1.3 10 ^3/uL Differential Total Cells Counted 100.0 100 Neutrophils % (Manual) 72 37.0-80.0 Band Neutrophils % (Manual) 5 Lymphocytes % (Manual) 18 10.0-50.0 Monocytes % (Manual) 5 0-12 Eosinophils % (Manual) 0 0-7 Basophils % (Manual) 0 0.0-2.0 Metamyelocytes % (manual) 0 Myelocytes % (Manual) 0 Promyelocytes % (Manual) 0 Blast Cells % (Manual) 0 Reactive Lymphocytes 0 Platelet Estimate Adequate Red Blood Cell Morphology Normal Sodium Level 122 L 136-145 mmol/L Potassium Level 4.1 3.5-5.1 mmol/L Chloride Level 92 L 98-107 mmol/L Carbon Dioxide Level 17 L 20-31 mmol/L Anion Gap 13 5-15 Blood Urea Nitrogen 99 *H 9-23 mg/dL Creatinine 2.11 H 0.700-1.30 mg/dL Glomerular Filtration Rate Calc 37 >90 mL/min BUN/Creatinine Ratio 46.9 H 10.0-20.0 Serum Glucose 219 H 74-106 mg/dL Calcium Level 7.2 L 8.7-10.4 mg/dL Iron Level 22 L 65-175 ug/dL Total Iron Binding Capacity 243 L 250-425 ug/dL Percent Iron Saturation 9.1 L 20-55 % Ferritin 47.6 22-322 ng/mL Total Bilirubin 0.3 0.2-1.0 mg/dL Aspartate Amino Transferase (AST) 21 13-40 U/L Alanine Aminotransferase (ALT) 21 7-40 U/L Alkaline Phosphatase 50 46-116 U/L Total Protein 5.0 L 5.7-8.2 g/dL Albumin 2.9 L 3.2-4.8 g/dL Assessment Acute kidney injury likely ATN from shock Hemodynamic shock acute blood loss anemia Perforated viscus Ventilator-dependent hypoxic respiratory failure Hyponatremia Acute blood loss anemia status post PRBC Recommendations IV fluids as ordered Continue vasopressors Surgical consult We will follow closely Patient has Barrios catheter having decent urine output for now Discussed bedside Plan discussed with: Patient, Spouse DAYANARA BLACKWOOD MD October 04, 2024 14:47
[2024-10-04] MEDS: CALCIUM CHL(10%) 100MG/ML 10ML VIAL IV ONE (15:15)
[2024-10-04 16:12] LABS: Base Excess -8.2 mmol/L (-2.0-3.0)
[2024-10-04] MEDS: MIDAZOLAM DRIP 50 mg/50mL 50 ML IV ONE (16:51)
--- NOTE | 2024-10-04 17:02 | DVHOP2 ---
Operative Report - 2 Report Details Date: 10/04/24 Preop Diagnosis: 1. Perforated viscus with septic shock Postop Diagnosis: 1. Perforated pyloric ulcer with septic shock and diffuse peritonitis Surgeon: Sammie Serrano MD Coverage Specialist Rn: None Anesthesiologist: Natanael Soto CRNA Anesthesia: General Drains: 15 [place] Martinez drains x 3 Consent: The surgery and its risks including but not limited to infection, bleeding requiring possible blood transfusion with the risk of hepatitis or HIV infection, possible bowel resection with ileostomy or colostomy, possible perioperative WI or stroke, possible patient demise were explained to the patient's . All questions were answered to her satisfaction. She expressed verbal understanding and wished to proceed with the surgery. Complications: None Estimated Blood Loss: 100 mL Fluids: 3 units of PRBC + 750 mL of 5% albumin + 4 L of LR Findings: Huge perforated pyloric ulcer measuring 6 cm going across the pylorus with large amount of contaminated ascitic fluid Name of Procedure Performed Expiratory laparotomy with closure of perforated pyloric ulcer with omental patch Procedure Details Procedure Details: After the patient was transferred to the OR table and before anesthesia started, his his systolic blood pressure dropped to the 60s and became tachycardic into the 120s. At this time more blood and fluids including albumin and bicarb were given to improve his blood pressure. Also a 3rd pressor was started by anesthesia. Once this systolic blood pressure entered into the 90s, surgery was started. Abdomen was then prepped and draped in standard surgical fashion. A midline incision was made and this was quickly extended through the abdominal wall down to the linea alba which was opened using electrocautery. Peritoneum was then divided and there was a small schulte of air and cloudy fluid that was drained from the opening. Gram stain and culture of the ascitic fluid was taken and sent off to microbiology. Incision was then fully opened. There was large amount of dark cloudy ascitic fluid. This was aspirated. Due to concern for possible pyloric ulcer attention was 1st turned towards the the upper quadrants. There was diffuse induration around the pylorus and there was a large perforated ulcer measuring 6 cm in length going across the pylorus with significant amount of inflammatory changes of the surrounding tissue. Biopsy of the ulcer was performed and sent off to pathology. The NG tube was then gently advanced across the perforated site. The overlying tissue was then closed using running 2-0 Vicryl sutures. The overlying soft tissue was reapproximated using interrupted 2-0 silk sutures. Omentum was brought up to the perforate site and omental patch was then performed using interrupted 2-0 silk sutures. Abdominal cavity was irrigated with more than 7 L of warm irrigation. 15 [place] Martinez drains were placed, one along the right gutter one along the left gutter and one in the pelvis. These were brought through the abdominal wall and secured to skin using 3-0 nylon sutures. Midline fascia was then closed using running looped 0 PDS sutures with interrupted 1. Vicryl sutures. Surgical site was ir rigated and skin incision was then closed using pedro luis. Surgical sites were cleaned and dried and dressings were applied. Sponge, needle, instrument count at the end of the case were reported to be correct by the nursing staff. The patient remained critical throughout the surgery and we will stay intubated to the ICU in critical condition. Specimen: Pyloric ulcer sent to pathology Condition Critical Disposition Still a Patient SAMMIE SERRANO MD October 04, 2024 17:02
[2024-10-04 17:19] LABS: Hematocrit 31.4 % (41.0-53.0); Hemoglobin 10.9 g/dL (13.5-17.5); Mean Corpuscular Hemoglobin 29.4 pg (28.0-32.0); Mean Corpuscular Volume 84.7 fL (80.0-100.0)
[2024-10-04 17:57] LABS: Anisocytosis Slight; Macrocytosis Slight; Ovalocytes FEW; Total Cells Counted 100.0 (100)
[2024-10-04 18:14] LABS: Anion Gap 8 (5-15); BUN/Creatinine Ratio 40.9 (10.0-20.0); Bilirubin, Total 0.6 mg/dL (0.2-1.0); Carbon Dioxide 22 mmol/L (20-31); Chloride 106 mmol/L (98-107); Potassium 3.7 mmol/L (3.5-5.1); Sodium 136 mmol/L (136-145)
[2024-10-04 18:15] LABS: Alanine Aminotransferase 335 U/L (7-40); Albumin 2.2 g/dL (3.2-4.8); Alkaline Phosphatase 31 U/L (46-116); Blood Urea Nitrogen 72 mg/dL (9-23); Calcium 6.7 mg/dL (8.7-10.4); Glucose 134 mg/dL (74-106); Total Protein 3.1 g/dL (5.7-8.2)
[2024-10-04 18:19] LABS: INR 1.67 (0.9-1.15); Partial Thromboplastin Time 61.6 SEC (24.5-34.5); Prothrombin Time 16.8 sec (9.3-11.8)
--- NOTE | 2024-10-04 18:50 | DVHNC2 ---
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) Indication: Hypotension Room prepared for procedure: Yes [employer] performed hand hygien: Yes Maximal sterile barrier precau: Mask/Eye shield, Sterile gown, Cap, Sterlie gloves, Large sterlie drape Skin Preparation: Chlorhexidine gluconate, Providine iodine Skin preparation completely dr: Yes Insertion site: Right, Internal jugular Central line catheter type: Ndj-oogzooop-wmu dialysis Number of lumens: 3 Post Assessment: Chest X-Ray, Proper placement Informed consent obtained: Yes Notes Right IJV triple lumen central venous catheter placed under ultrasound guidance and placement confirmed with a X ray Date of Service: October 04, 2024 Billing Provider: SHANNON ROY MD Common Visit Codes: PROCEDURE ONLY RICHARD TOSCANO RESIDENT October 04, 2024 18:50
--- NOTE | 2024-10-04 18:54 | ECG ---
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
[2024-10-04] MEDS: MIDAZOLAM DRIP 50 mg/50mL 50 ML IV SCH (18:58)
[2024-10-04] MEDS: VANCOMYCIN 1GM/200ML PM 250 ML IV SCH (18:58)
[2024-10-04 19:02] LABS: Base Excess -3.1 mmol/L (-2.0-3.0)
--- NOTE | 2024-10-04 19:15 | DVH ---
CHEST RADIOGRAPH Indication: central line placed Technique: Single frontal view of the chest was obtained Comparison: XY CHEST XRAY 1 VIEW on DOS: 10/04/24, XY CHEST PORTABLE on DOS: 08/22/23 FINDINGS: Lines and Tubes: Endotracheal tube is 3.5 cm above the dunia. Right internal jugular catheter in gabby ce in superior vena cava above the right atrium. Enteric tube below the left diaphragm in the stomach. Lungs: Bilateral perihilar infiltrates with right lower lobe infiltrate and atelectasis. Pleura: No effusion. No pneumothorax. Cardiomediastinal contours: Unremarkable Bones: No acute osseous abnormality. IMPRESSION: 1. Endotracheal tube 3.5 cm above the dunia. 2. Enteric tube in the stomach. 3. Right internal jugular catheter in place in superior vena cava above the right atrium. 4. Bilateral perihilar infiltrates infiltrate and atelectasis in the right base is noted
--- NOTE | 2024-10-04 19:35 | DVHINCON2 ---
Date of service: October 04, 2024 Referring Physician Megan Caldera NP Reason for Consultation Acute hypoxic respiratory failure requiring mechanical vent. 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 Family found patient passed out this morning and brought him in for evaluation. Per patient's , pt does not have the will to live, having decreased appetite and also on antidepressants. Pt has been complaining of constipation over past several days although denies any hematemesis, melena or hematochezia. Upon evaluation in ED, patient was found to be severely hypotensive, hyponatremic and severely anemic as well. He has since received multiple units of PRBC and was intubated. CT of the abdomen and pelvis showed perforated vis cus and surgery was consulted. Patient was admitted for further care, and pulmonary consultation is requested for evaluation and management of acute hypoxic respiratory failure requiring mechanical vent. Review of Systems: Unable to obtain due to intubated status. 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 Allergies: No known drug allergies. Family History: Lung cancer, HTN, heart disease (Dad with IN and , mom with emphysema and lung cancer). Social History: Smoker, 1 PPD. No alcohol or illicit drug use. Family History: Alcoholism G8 MOTHER Cardiovascular disease G8 MOTHER G8 FATHER FH: heart disease FH: lung cancer Hypertension G8 MOTHER Allergies: Coded Allergies: NO KNOWN ALLERGIES (Unverified , 08/22/23) Home Meds Active Scripts Nifedipine (Nifedipine Er) 30 Mg Tab, 30 MG PO BID for 30 Days, #60 TAB 6 Refills Prov:JASE HALE DO 08/25/23 Atorvastatin Calcium (ATORVASTATIN CALCIUM) 20 Mg Tab, 20 MG PO HS for 30 Days, #30 TAB 6 Refills Prov:JASE HALE DO 08/25/23 Aspirin (Aspir-Low) 81 Mg Tab, 81 MG PO DAILY for 30 Days, #30 TAB 1 Refill Prov:JASE HALE DO 08/25/23 Reported Medications Lisinopril (Lisinopril) 20 Mg Tab, 1 TAB PO DAILY for 90 Days, #90 5/19/25 Escitalopram Oxalate (ESCITALOPRAM OXALATE) 10 Mg Tab, 1 TAB PO DAILY for 30 Days, #30 10/06/24 Current Medications Current Medications Medications (Trade) Dose Ordered Sig/Wally Route PRN Reason Start Time Stop Time Status Last Admin Norepinephrine Bitartrate 250 ml @ 3.75 mls/hr Q24H IV 10/04/24 08:00 10/04/24 17:42 Fentanyl Citrate 250 ml @ 2.5 mls/hr Q24H IV 10/04/24 09:45 10/04/24 10:40 Sodium Chloride 1,000 ml @ 100 mls/hr Q10H IV 10/04/24 11:45 10/04/24 12:19 DC Acetaminophen/ Hydrocodone Bitart ([place] 5/325MG Tab) 1 tab Q4HP PRN PO MODERATE PAIN (4-6 PAIN SCALE) 10/04/24 11:45 Ondansetron HCl (Zofran) 4 mg Q4HP PRN IV NAUSEA / VOMITING 10/04/24 11:45 Acetaminophen (Tylenol Tablet) 650 mg Q6HP PRN PO PAIN SCALE 1-3 OR TEMP>100.4 10/04/24 11:45 Morphine Sulfate 2 mg Q4HPRN PRN IV SEVERE PAIN (7-10 PAIN SCALE) 10/04/24 11:45 Nitroglycerin (Ntrostat Sublingual) 0.4 mg Q5MINP PRN SL FOR CHEST PAIN 10/04/24 11:45 Morphine Sulfate 2 mg Q30M PRN IV FOR CHEST PAIN 10/04/24 11:45 Diagnostic Test (Pha) (Accu-Chek Comfort Curve T) 1 strip Q6HR 10/04/24 12:00 10/04/24 18:00 Insulin Human Regular (InsuLIN R) Q6HR SC 10/04/24 12:00 Dextrose 50 ml UD PRN IV Blood Sugar LESS THAN 60 10/04/24 11:45 10/04/24 14:10 Atorvastatin Calcium (Lipitor) 20 mg HS PO 10/04/24 22:00 Sodium Chloride 1,000 ml @ 150 mls/hr Q6H40M IV 10/04/24 11:45 10/04/24 14:49 DC 10/04/24 11:45 Vancomycin HCl 0 ml @ 0 mls/hr UD IV 10/04/24 11:45 Ceftriaxone Sodium 50 ml @ 100 mls/hr DAILY@09 IV 10/04/24 11:45 Norepinephrine Bitartrate 250 ml @ 3.75 mls/hr Q24H IV 10/04/24 12:00 10/04/24 12:23 DC Vasopressin 20 units/Sodium Chloride 100 ml @ 9 mls/hr Q11H7M IV 10/04/24 12:00 Vancomycin HCl 250 ml @ 250 mls/hr Q1H IV 10/04/24 13:00 10/04/24 14:59 DC 10/04/24 18:58 Sodium Bicarbonate 50 ml PRN PRN IV SBP>140 10/04/24 13:45 10/04/24 15:08 DC Dextrose/Sodium Chloride 1,000 ml @ 75 mls/hr [id number] IV 10/04/24 14:15 Pantoprazole Sodium (Protonix) 40 mg DAILY IV 10/05/24 10:00 Lorazepam 50 mg/ Sodium Chloride 50 ml @ 1 mls/hr Q24H IV 10/04/24 18:15 Cancel Midazolam HCl 50 ml @ 1 mls/hr Q24H IV 10/04/24 18:30 10/04/24 18:58 Vital Signs Vital Signs Date Time Temp Pulse Resp B/P (MAP) Pulse Ox O2 Delivery O2 Flow Rate FiO2 10/04/24 18:58 115/75 10/04/24 18:39 105 24 98 50 10/04/24 13:44 95.9 95.9 10/04/24 08:30 Nasal Cannula* 2 Physical Exam Gen.: Patient lying in bed in medical ICU. Sedated, intubated on mechanical ventilator. Head: Normocephalic, atraumatic. Eyes: PERRLA. Ears: Normal external anatomy. Throat: Endotracheal tube and orogastric tube in place. Neck: Supple, trachea midline. Chest: Transmitted breath sounds bilaterally. Decreased air entry bilaterally. No wheezing. Bibasilar crackles. Cardiovascular: Positive S1, positive S2. Regular rate and rhythm. Abdomen: Positive bowel sounds in all 4 quadrants. Soft, nontender, nondistended. : Barrios in place. Normal external genitalia. Rectal: Deferred. Skin: Warm, dry. Intact. Extremities: 2+ radial pulses bilaterally. No lower extremity edema. Neuro: Sedated. Labs/Diagnostic Data Labs Test 10/04/24 18:54 10/04/24 18:42 10/04/24 17:00 10/04/24 13:30 Range/Units Blood Gas Specimen Type Arterial Blood Gas Sample Site Arterial line Blood Gas Patient Temperature 37.0 Arterial Blood Date Drawn [id number] Arterial Blood pH 7.354 7.350-7.450 Arterial Blood Partial Pressure CO2 40.7 35.0-48.0 mmHg Arterial Blood Partial Pressure O2 93.3 83.0-108.0 mmHg Arterial Blood HCO3 22.2 21.0-28.0 mmol/L Arterial Blood Oxygen Saturation 96.9 94.0-98.0 % Arterial Blood Base Excess -3.1 L -2.0-3.0 mmol/L Arterial Blood Oxyhemoglobin 95.9 94.0-98.0 % Arterial Blood Carboxyhemoglobin 0.6 0.5-1.5 % Arterial Blood Methemoglobin 0.4 0.0-1.5 % Ke Test N/a Blood Gas Total Hemoglobin 14.70 13.5-17.5 g/dL Blood Gas Set Respiration Rate 24.0 Blood Gas Modality Vent - ac FiO2 % 50.0 Blood Gas Tidal Volume 450.0 Blood Gas PEEP or CPAP 5.0 POC Glucose 141 H 70-106 mg/dl White Blood Count 3.4 #L 4.4-10.8 10^3/uL Red Blood Count 3.70 L 4.5-5.90 10^6/uL Hemoglobin 10.9 #L 13.5-17.5 g/dL Hematocrit 31.4 #L 41.0-53.0 % Mean Corpuscular Volume 84.7 80.0-100.0 fL Mean Corpuscular Hemoglobin 29.4 28.0-32.0 pg Mean Corpuscular Hemoglobin Concent 34.7 32.0-36.0 g/dL Red Cell Distribution Width 13.6 11.8-14.3 % Platelet Count 128 #L 140-450 10^3/uL Mean Platelet Volume 7.1 6.9-10.8 fL Neutrophils (%) (Auto) 37.0-80.0 % Lymphocytes (%) (Auto) 10.0-50.0 % Monocytes (%) (Auto) 0.0-12.0 % Basophils (%) (Auto) 0.0-2.0 % Neutrophils # (Auto) 1.6-8.6 10 ^3/uL Lymphocytes # (Auto) 0.4-5.4 10 ^3/uL Monocytes # (Auto) 0-1.3 10 ^3/uL Differential Total Cells Counted 100.0 100 Neutrophils % (Manual) 34 L 37.0-80.0 Band Neutrophils % (Manual) 30 Lymphocytes % (Manual) 21 10.0-50.0 Monocytes % (Manual) 7 0-12 Eosinophils % (Manual) 0 0-7 Basophils % (Manual) 0 0.0-2.0 Metamyelocytes % (manual) 6 Myelocytes % (Manual) 2 Promyelocytes % (Manual) 0 Blast Cells % (Manual) 0 Reactive Lymphocytes 0 Platelet Estimate Decrea Large Platelets Few Anisocytosis (manual) Slight Microcytosis Slight Macrocytosis Slight Ovalocytes Few Prothrombin Time 16.8 H 9.3-11.8 sec Prothrombin Time INR 1.67 H 0.9-1.15 Activated Partial Thromboplast Time 61.6 H 24.5-34.5 SEC Sodium Level 136 # 136-145 mmol/L Potassium Level 3.7 3.5-5.1 mmol/L Chloride Level 106 # 98-107 mmol/L Carbon Dioxide Level 22 20-31 mmol/L Anion Gap 8 5-15 Blood Urea Nitrogen 72 #H 9-23 mg/dL Creatinine 1.76 H 0.700-1.30 mg/dL Glomerular Filtration Rate Calc 47 >90 mL/min BUN/Creatinine Ratio 40.9 H 10.0-20.0 Serum Glucose 134 H 74-106 mg/dL Lactic Acid Level 2.6 *H 0.4-2.0 mmol/L Calcium Level 6.7 L 8.7-10.4 mg/dL Total Bilirubin 0.6 0.2-1.0 mg/dL Aspartate Amino Transferase (AST) 410 H 13-40 U/L Alanine Aminotransferase (ALT) 335 H 7-40 U/L Alkaline Phosphatase 31 L 46-116 U/L Total Protein 3.1 L 5.7-8.2 g/dL Albumin 2.2 L 3.2-4.8 g/dL Blood Gas Critical Value Read Back Yes Blood Gas Notified Whom Dr. daniel Blood Gas Notified Time [id number] Blood Gas Notified By Test 10/04/24 08:05 10/04/24 07:01 Range/Units Reticulocyte Count (auto) 5.51 H 0.5-1.5 % Hemoglobin A1c 5.6 <5.7 % A1C Troponin I High Sensitivity 359 *H </=54 ng/L Red Blood Cell Morphology Normal Iron Level 22 L 65-175 ug/dL Total Iron Binding Capacity 243 L 250-425 ug/dL Percent Iron Saturation 9.1 L 20-55 % Ferritin 47.6 22-322 ng/mL Assessment Impression: Acute hypoxic respiratory failure On mechanical ventilator Septic shock Perforated viscus Nicotine dependence Plan: s/p intubation on mechanical ventilator. CXR image and report reviewed.. ABG reviewed, compensated. On AC mode; RR 24, VT 450, PEEP 5, Fio2 50% Titrate FIO2 to keep O2 saturation above 90%. VAP bundle. Daily ABG and CXR while intubated Sedate for ventilator synchrony- on Versed, Fentanyl. Consult for PICC line placement Continue antibiotics. F/u cultures. On pressors for hemodynamic support Levophed 24 mcg/min, Willian-Synephrine 50 mcg/min, vasopressin 0.04 units/min Titrate to keep mean arterial pressure greater than 65 mmHg. Monitor renal function Monitor electrolytes. Supplement as necessary. Monitor ins and outs. GI prophylaxis. DVT prophylaxis. Prognosis: Poor given patient's multiple co-morbidities. Condition: Critical Rest of plan per hospitalist and other consultants. A total of 35 minutes of critical care time was spent reviewing the patient record, examining the patient, making a diagnostic and therapeutic plan, discussing this plan with the medical personnel, following up on diagnostic studies and following the patient for clinical stability excluding any and all procedures. At least 50% of this time was spent in direct, [id number] contact. Thank you, NIDIA Caldera, for allowing me to participate in this patient's care. Further recommendations will depend on the patient's clinical course. Please do not hesitate to contact me if you have any questions or concerns. This medical document was created using an electronic medical record system with [employer] system. Although these documentations are being carefully reviewed, there may still be some phonetic and typographical changes. The errors are purely typographical, due to imperfection on the software program, and do not reflect any compromise in the patient's medical care. Plan discussed with: Other (JASPER Michelle/NIDIA Caldera/) ARIE LOPEZ MD October 04, 2024 19:35
[2024-10-04] MEDS: SODIUM CHLORIDE 0.9% 1,000 ML IV ONE (20:44)
[2024-10-04] MEDS ORDERED: ATORVASTATIN 20 MG TAB PO SCH (22:00)
[2024-10-05] VITALS (110 sets, daily range): BP systolic 87–193; BP diastolic 22–114; PULSE 67–91; RESP 19–25; TEMP 97.7–99.5; O2SAT 96–100
--- NOTE | 2024-10-05 02:41 | ED.PDOC ---
Was a procedure done? 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: Other medical staff, Name of boot and shoe repairman (Refugio Chen resident physician) Indication: Hypotension, Volume resuscitation Room prepared for procedure: Yes Master Automotive Glass Technician performed hand hygien: Yes Maximal sterile barrier precau: Mask/Eye shield, Sterile gown, Cap, Sterlie gloves, Large sterlie drape Skin Preparation: Chlorhexidine gluconate Skin preparation completely dr: Yes Insertion site: Right, Internal jugular Central line catheter type: [id number] dialysis Number of lumens: 3 Central line exchanged over a: Yes Antiseptic ointment applied to: No Post Assessment: Chest X-Ray, Proper placement Informed consent obtained: No Risks/benefits/alt described: No Notes Procedure performed by resident physician Refugio Chen under my direct supervision. SHANNON ROY MD October 05, 2024 02:41
[2024-10-05] MEDS: phytonadione 10 MG in SODIUM CHL 0.9% 50 ML IV ONE ×2 (03:46→03:47)
[2024-10-05] MEDS: phytonadione 1 ML ONE (03:47)
[2024-10-05 03:52] LABS: Base Excess -3.8 mmol/L (-2.0-3.0)
[2024-10-05 04:27] LABS: INR 1.34 (0.9-1.15); Partial Thromboplastin Time 36.5 SEC (24.5-34.5); Prothrombin Time 13.8 sec (9.3-11.8)
[2024-10-05 04:31] LABS: Anion Gap 10 (5-15); BUN/Creatinine Ratio 31.4 (10.0-20.0); Potassium 4.8 mmol/L (3.5-5.1); Sodium 138 mmol/L (136-145)
[2024-10-05 04:38] LABS: Hematocrit 32.0 % (41.0-53.0); Hemoglobin 11.1 g/dL (13.5-17.5); Mean Corpuscular Hemoglobin 29.7 pg (28.0-32.0); Mean Corpuscular Volume 85.2 fL (80.0-100.0)
[2024-10-05 04:46] LABS: Alanine Aminotransferase 423 U/L (7-40); Albumin 2.6 g/dL (3.2-4.8); Alkaline Phosphatase 39 U/L (46-116); Bilirubin, Total 1.3 mg/dL (0.2-1.0); Blood Urea Nitrogen 61 mg/dL (9-23); Calcium 7.1 mg/dL (8.7-10.4); Carbon Dioxide 20 mmol/L (20-31); Chloride 108 mmol/L (98-107); Glucose 115 mg/dL (74-106); Total Protein 3.9 g/dL (5.7-8.2)
[2024-10-05 05:08] LABS: Total Cells Counted 100.0 (100)
[2024-10-05 05:10] LABS: Anisocytosis Slight
--- NOTE | 2024-10-05 05:50 | DVH ---
CHEST RADIOGRAPH Indication: mary. infiltrates Technique: Single frontal view of the chest was obtained Comparison: XY CHEST PORTABLE on DOS: 10/04/24, XY CHEST XRAY 1 VIEW on DOS: 10/04/24, XY CHEST PORTABL E on DOS: 08/22/23 IMPRESSION: Heart appears stable in size. Moderate pulmonary vascular congestion. No sizable effusion or pneumot horax. Endotracheal tube, enteric tube, and right IJ catheter appears satisfactory in position.
[2024-10-05] MEDS: PIPERACILLIN-TAZOB 3.375GM 100 ML IV SCH (06:09)
[2024-10-05] MEDS: PANTOPRAZOLE 40 MG/10 ML VIAL INJ IV SCH (09:39)
--- NOTE | 2024-10-05 13:08 | DVHPN2 ---
Progress Note Date Seen: October 05, 2024 Medical Necessity Reason Pt with a Central, PICC or Fol: Yes Subjective Patient reports: Other (Events noted) Review of Systems: Deferred (Patient remains intubated OR event noted) Objective vital signs Vital Sign Date Time Temp Pulse Resp B/P (MAP) Pulse Ox O2 Delivery O2 Flow Rate FiO2 10/05/24 12:48 99/67 10/05/24 12:00 24 96 Mechanical Ventilator+ 40 40 10/05/24 12:00 98.4 72 98.4 10/04/24 08:30 2 Total Intake and Output 10/04/24 10/04/24 10/05/24 15:00 23:00 07:00 Intake Total 1200 ml 794.50 ml 1165.00 ml Output Total 0 ml 1887 ml 2650 ml Balance 1200 ml -1092.50 ml -1485.00 ml medications Current Medications Medications Dose Ordered Sig/Wally Route Start Time Stop Time Status Last Admin Dose Admin Norepinephrine Bitartrate 250 ml @ 3.75 mls/hr Q24H IV 10/04/24 08:00 10/04/24 17:42 22.5 MLS/HR Fentanyl Citrate 250 ml @ 2.5 mls/hr Q24H IV 10/04/24 09:45 10/05/24 12:50 2.5 MLS/HR Ondansetron HCl 4 mg Q4HP PRN IV 10/04/24 11:45 Morphine Sulfate 2 mg Q4HPRN PRN IV 10/04/24 11:45 Nitroglycerin 0.4 mg Q5MINP PRN SL 10/04/24 11:45 Morphine Sulfate 2 mg Q30M PRN IV 10/04/24 11:45 Diagnostic Test (Pha) 1 strip Q6HR 10/04/24 12:00 10/05/24 11:46 1 STRIP Insulin Human Regular Q6HR SC 10/04/24 12:00 Dextrose 50 ml UD PRN IV 10/04/24 11:45 10/04/24 14:10 50 ML Pantoprazole Sodium 40 mg DAILY IV 10/05/24 10:00 10/05/24 09:39 40 MG Lorazepam 50 mg/ Sodium Chloride 50 ml @ 1 mls/hr Q24H IV 10/04/24 18:15 Cancel Midazolam HCl 50 ml @ 1 mls/hr Q24H IV 10/04/24 18:30 10/05/24 12:47 3 MLS/HR Vasopressin 20 units/Sodium Chloride 100 ml @ 12 mls/hr Q8H20M IV 10/04/24 20:30 10/05/24 12:48 12 MLS/HR Sodium Chloride 1,000 ml @ 100 mls/hr Q10H IV 10/04/24 20:30 10/05/24 06:12 100 MLS/HR Acetaminophen 650 mg Q6HPRN PRN GA 10/04/24 21:00 Piperacillin Sod/ Tazobactam Sod 100 ml @ 25 mls/hr Q8HR IV 10/05/24 06:00 10/05/24 06:09 25 MLS/HR Examination: GENERAL:Abnormal, ABDOMEN:Abnormal, MSK:Abnormal, NEURO:Abnormal laboratory and microbiology Laboratory Tests 10/05/24 03:46 Test 10/05/24 03:46 Range/Units Serum Glucose 115 H 74-106 mg/dL Microbiology Date/Time Source Procedure Growth Status 10/04/24 15:00 Abdomen Gram Stain Pending Resulted 10/04/24 15:00 Abdomen Anaerobic Culture Pending Resulted 10/04/24 15:00 Abdomen Aerobic Culture - Preliminary Resulted 10/04/24 07:01 Blood Blood Culture - Preliminary NO GROWTH AFTER 24 HOURS OF INCUBATION. Resulted Problem List/Assessment/Plan Problem List/Assessment/Plan Acute kidney injury likely ATN from shock Hemodynamic shock acute blood loss anemia Perforated gastric ulcer status post surgery Ventilator-dependent hypoxic respiratory failure Hyponatremia Acute blood loss anemia status post PRBC Recommendations Renal function better urine output better IV fluids as ordered vasopressors We will follow closely Urine workup as ordered Plan discussed with: Spouse CC Plasma Assessment Blood Product Administration S: [id number] DAYANARA BLACKWOOD MD October 05, 2024 13:08
--- NOTE | 2024-10-05 13:30 | DVHPN2 ---
Progress Note - Dictate Date Seen: October 05, 2024 Medical Necessity Reason Pt with a Central, PICC or Fol: Yes Subjective E: no major events o/n. continuing to wean down on pressors. vital signs Vital Sign Date Time Temp Pulse Resp B/P (MAP) Pulse Ox O2 Delivery O2 Flow Rate FiO2 10/05/24 13:05 96/66 10/05/24 12:00 24 96 Mechanical Ventilator+ 40 40 10/05/24 12:00 98.4 72 98.4 10/04/24 08:30 2 Total Intake and Output 10/04/24 10/04/24 10/05/24 15:00 23:00 07:00 Intake Total 1200 ml 794.50 ml 1165.00 ml Output Total 0 ml 1887 ml 2650 ml Balance 1200 ml -1092.50 ml -1485.00 ml medications Current Medications Medications Dose Ordered Sig/Wally Route Start Time Stop Time Status Last Admin Dose Admin Norepinephrine Bitartrate 250 ml @ 3.75 mls/hr Q24H IV 10/04/24 08:00 10/05/24 13:05 7.5 MLS/HR Fentanyl Citrate 250 ml @ 2.5 mls/hr Q24H IV 10/04/24 09:45 10/05/24 12:50 2.5 MLS/HR Ondansetron HCl 4 mg Q4HP PRN IV 10/04/24 11:45 Morphine Sulfate 2 mg Q4HPRN PRN IV 10/04/24 11:45 Nitroglycerin 0.4 mg Q5MINP PRN SL 10/04/24 11:45 Morphine Sulfate 2 mg Q30M PRN IV 10/04/24 11:45 Diagnostic Test (Pha) 1 strip Q6HR 10/04/24 12:00 10/05/24 11:46 1 STRIP Insulin Human Regular Q6HR SC 10/04/24 12:00 Dextrose 50 ml UD PRN IV 10/04/24 11:45 10/04/24 14:10 50 ML Pantoprazole Sodium 40 mg DAILY IV 10/05/24 10:00 10/05/24 09:39 40 MG Lorazepam 50 mg/ Sodium Chloride 50 ml @ 1 mls/hr Q24H IV 10/04/24 18:15 Cancel Midazolam HCl 50 ml @ 1 mls/hr Q24H IV 10/04/24 18:30 10/05/24 12:47 3 MLS/HR Vasopressin 20 units/Sodium Chloride 100 ml @ 12 mls/hr Q8H20M IV 10/04/24 20:30 10/05/24 12:48 12 MLS/HR Sodium Chloride 1,000 ml @ 100 mls/hr Q10H IV 10/04/24 20:30 10/05/24 06:12 100 MLS/HR Acetaminophen 650 mg Q6HPRN PRN NV 10/04/24 21:00 Piperacillin Sod/ Tazobactam Sod 100 ml @ 25 mls/hr Q8HR IV 10/05/24 06:00 10/05/24 06:09 25 MLS/HR objective GEN: sedated. intubated. ABD: surgical dressing intact/clean. NGT 200 mL. KWAN with light serosang. laboratory and microbiology Laboratory Tests 10/05/24 03:46 Test 10/05/24 03:46 Range/Units Serum Glucose 115 H 74-106 mg/dL Assessment/Plan A: 1. POD #1 s/p ex lap with repair of large perforated pyloric ulcer 2. septic shock improving 3. 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 TPN Plan discussed with: Spouse CC Plasma Assessment Blood Product Administration S: [id number] SAMMIE LEONARDO MD October 05, 2024 13:30
--- NOTE | 2024-10-05 13:43 | DVHPN2 ---
Subjective in bed doing well intubated Changes from previous H/P or p: No Changes Objective Vitals Vital Signs Date Time Temp Pulse Resp B/P (MAP) Pulse Ox O2 Delivery O2 Flow Rate FiO2 10/05/24 13:05 96/66 10/05/24 12:00 24 96 Mechanical Ventilator+ 40 40 10/05/24 12:00 98.4 72 98.4 10/04/24 08:30 2 Intake/Output Intake and Output 10/05/24 07:00 Intake Total 3159.50 ml Output Total 4537 ml Balance -1377.50 ml Intake Oral 0 ml IV Total 1959.50 ml Tube Feeding 0 ml Blood Product 1200 ml Output Urine Total 3900 ml Stool Total 0 ml Gastric Drainage Total 200 ml Other 437 ml General Appearance: Alert, Oriented X3 Lungs: Clear to auscultation Cardiovascular: Regular rate, Normal S1, Normal S2 Medications Current Medications Medications Dose Ordered Sig/Wally Route Start Time Stop Time Status Last Admin Dose Admin Norepinephrine Bitartrate 250 ml @ 3.75 mls/hr Q24H IV 10/04/24 08:00 10/05/24 13:05 7.5 MLS/HR Fentanyl Citrate 250 ml @ 2.5 mls/hr Q24H IV 10/04/24 09:45 10/05/24 12:50 2.5 MLS/HR Ondansetron HCl 4 mg Q4HP PRN IV 10/04/24 11:45 Morphine Sulfate 2 mg Q4HPRN PRN IV 10/04/24 11:45 Nitroglycerin 0.4 mg Q5MINP PRN SL 10/04/24 11:45 Morphine Sulfate 2 mg Q30M PRN IV 10/04/24 11:45 Diagnostic Test (Pha) 1 strip Q6HR 10/04/24 12:00 10/05/24 11:46 1 STRIP Insulin Human Regular Q6HR SC 10/04/24 12:00 Dextrose 50 ml UD PRN IV 10/04/24 11:45 10/04/24 14:10 50 ML Pantoprazole Sodium 40 mg DAILY IV 10/05/24 10:00 10/05/24 09:39 40 MG Lorazepam 50 mg/ Sodium Chloride 50 ml @ 1 mls/hr Q24H IV 10/04/24 18:15 Cancel Midazolam HCl 50 ml @ 1 mls/hr Q24H IV 10/04/24 18:30 10/05/24 12:47 3 MLS/HR Vasopressin 20 units/Sodium Chloride 100 ml @ 12 mls/hr Q8H20M IV 10/04/24 20:30 10/05/24 12:48 12 MLS/HR Sodium Chloride 1,000 ml @ 100 mls/hr Q10H IV 10/04/24 20:30 10/05/24 06:12 100 MLS/HR Acetaminophen 650 mg Q6HPRN PRN AL 10/04/24 21:00 Piperacillin Sod/ Tazobactam Sod 100 ml @ 25 mls/hr Q8HR IV 10/05/24 06:00 10/05/24 06:09 25 MLS/HR Laboratory Results Laboratory Tests 10/05/24 03:46 Chemistry Test 10/04/24 17:00 10/05/24 03:46 Albumin 2.2 g/dL (3.2-4.8) L 2.6 g/dL (3.2-4.8) L Calcium Level 6.7 mg/dL (8.7-10.4) L 7.1 mg/dL (8.7-10.4) L Total Protein 3.1 g/dL (5.7-8.2) L 3.9 g/dL (5.7-8.2) L Coagulation Test 10/04/24 17:00 10/05/24 03:53 Prothrombin Time 16.8 sec (9.3-11.8) H 13.8 sec (9.3-11.8) H Prothrombin Time INR 1.67 (0.9-1.15) H 1.34 (0.9-1.15) H Activated Partial Thromboplast Time 61.6 SEC (24.5-34.5) H 36.5 SEC (24.5-34.5) H LFT Test 10/04/24 17:00 10/05/24 03:46 Alanine Aminotransferase (ALT) 335 U/L (7-40) H 423 U/L (7-40) H Alkaline Phosphatase 31 U/L (46-116) L 39 U/L (46-116) L Aspartate Amino Transferase (AST) 410 U/L (13-40) H 582 U/L (13-40) H Total Bilirubin 0.6 mg/dL (0.2-1.0) 1.3 mg/dL (0.2-1.0) H Blood Gas Results Test 10/04/24 15:58 10/04/24 18:54 10/05/24 03:45 Arterial Blood pH 7.278 (7.350-7.450) 7.354 (7.350-7.450) 7.390 (7.350-7.450) FiO2 % 50.0 50.0 30.0 Microbiology Microbiology Date/Time Source Procedure Growth Status 10/04/24 15:00 Abdomen Gram Stain - Final Resulted 10/04/24 15:00 Abdomen Anaerobic Culture - Preliminary Resulted 10/04/24 15:00 Abdomen Aerobic Culture - Preliminary Resulted 10/04/24 07:01 Blood Blood Culture - Preliminary NO GROWTH AFTER 24 HOURS OF INCUBATION. Resulted Assessment/Plan Assessment/Plan Acute hypoxic respiratory failure Perforated ulcer Enteritis GIOVANI due to ATN Moderate abdominopelvic ascites Small right pleural effusion Leukocytosis probable sirs versus sepsis Severe anemia Hyperglycemia Azotemia History of hypertension History of hyperlipidemia History of CVA with no deficits in August 2023 History of memory loss History of left knee surgery Continue levophed NPO POD #1 s/p ex lap with repair of large perforated pyloric ulcer IV abx IVF Nephrology following for GIOVANI Critical care time 59 minutes Plan discussed with: Other (nurse) Date of Service: October 05, 2024 Billing Provider: LUPIS CAMPOS MD Common Visit Codes: [id number] CARE 30-74 MIN LUPIS CAMPOS MD October 05, 2024 13:43
[2024-10-05] MEDS ORDERED: TPN PER PHARMACY 0 ML IV SCH ×2 (14:30)
[2024-10-05] MEDS ORDERED: DEXTROSE (50%) 50ML SYRG IV SCH (14:45)
[2024-10-05 14:54] LABS: Triglycerides 58.0 mg/dL (< 150)
[2024-10-05 14:55] LABS: Magnesium 1.6 mg/dL (1.6-2.6)
[2024-10-05 15:25] LABS: Urine Protein, UAD 1+ (Negative)
[2024-10-05 15:32] LABS: Protein, Urine 85.0 mg/dL (1-14)
[2024-10-05 15:41] LABS: Amphetamine Screen, Urine Neg (NEGATIVE); Barbiturate Scree,Urine Neg (NEGATIVE); Benzodiazephine Screen, Urine Pos (NEGATIVE); Cannabinoid Screen, Urine Neg (NEGATIVE); Cocaine Screen, Urine Neg (NEGATIVE); Opiate Scree,Urine Neg (NEGATIVE); Phencyclidine Screen, Urine Neg (NEGATIVE)
[2024-10-05] MEDS: CALCIUM GLUC 1,000mg/50ml-NS 50 ML IV ONE (15:46)
[2024-10-05] MEDS: ACCU-CHEK COMFORT CURVE STRIP VI SCH (17:57)
[2024-10-05] MEDS: InsuLIN REG 1unit/0.01ml Soln (100units/ml) SC SCH (18:00)
[2024-10-05] MEDS: SODIUM CHLORIDE 0.9% 1,000 ML IV SCH (18:45)
[2024-10-05] MEDS: AMINO ACID INFUSION IN D10W 1,000 ML IV ONE (22:14)
--- NOTE | 2024-10-05 22:46 | DVHPN2 ---
Progress Note - Dictate Date Seen: October 05, 2024 Medical Necessity Reason Pt with a Central, PICC or Fol: Yes The following are medically ne: Gómez Catheter Reason for gómez catheter: Strict I&O Subjective Patient seen and examined at bedside. Sedated, intubated on mechanical ventilator. Overnight events reviewed. vital signs Vital Sign Date Time Temp Pulse Resp B/P (MAP) Pulse Ox O2 Delivery O2 Flow Rate FiO2 10/05/24 22:08 71 24 106/70 (82) 100 40 10/05/24 20:00 Mechanical Ventilator+ 10/05/24 16:00 99.5 99.5 10/04/24 08:30 2 Total Intake and Output 10/04/24 10/04/24 10/05/24 15:00 23:00 07:00 Intake Total 1200 ml 794.50 ml 1165.00 ml Output Total 0 ml 1887 ml 2650 ml Balance 1200 ml -1092.50 ml -1485.00 ml medications Current Medications Medications Dose Ordered Sig/Wally Route Start Time Stop Time Status Last Admin Dose Admin Norepinephrine Bitartrate 250 ml @ 3.75 mls/hr Q24H IV 10/04/24 08:00 10/05/24 13:05 7.5 MLS/HR Fentanyl Citrate 250 ml @ 2.5 mls/hr Q24H IV 10/04/24 09:45 10/05/24 12:50 2.5 MLS/HR Ondansetron HCl 4 mg Q4HP PRN IV 10/04/24 11:45 Morphine Sulfate 2 mg Q4HPRN PRN IV 10/04/24 11:45 Nitroglycerin 0.4 mg Q5MINP PRN SL 10/04/24 11:45 Morphine Sulfate 2 mg Q30M PRN IV 10/04/24 11:45 Pantoprazole Sodium 40 mg DAILY IV 10/05/24 10:00 10/05/24 09:39 40 MG Lorazepam 50 mg/ Sodium Chloride 50 ml @ 1 mls/hr Q24H IV 10/04/24 18:15 Cancel Midazolam HCl 50 ml @ 1 mls/hr Q24H IV 10/04/24 18:30 10/05/24 14:14 3 MLS/HR Vasopressin 20 units/Sodium Chloride 100 ml @ 12 mls/hr Q8H20M IV 10/04/24 20:30 10/05/24 22:07 12 MLS/HR Acetaminophen 650 mg Q6HPRN PRN SC 10/04/24 21:00 Piperacillin Sod/ Tazobactam Sod 100 ml @ 25 mls/hr Q8HR IV 10/05/24 06:00 10/05/24 22:12 25 MLS/HR Amino Acids 0 ml @ 0 mls/hr PER PHARMACY IV 10/05/24 14:30 UNV Amino Acids 0 ml @ 0 mls/hr PER PHARMACY IV 10/05/24 14:30 Diagnostic Test (Pha) 1 strip Q6HR 10/05/24 18:00 10/05/24 17:57 1 STRIP Insulin Human Regular FOLLOW SLIDING SCALE Q6HR SC 10/05/24 18:00 Dextrose 50 ml UD IV 10/05/24 14:45 Sodium Chloride 1,000 ml @ 59 mls/hr [id number] IV 10/05/24 18:45 10/05/24 22:11 59 MLS/HR objective Gen.: Patient lying in bed in medical ICU. Sedated, intubated on mechanical ventilator. Head: Normocephalic, atraumatic. Eyes: PERRLA. Ears: Normal external anatomy. Throat: Endotracheal tube and orogastric tube in place. Neck: Supple, trachea midline. Chest: Transmitted breath sounds bilaterally. Decreased air entry bilaterally. No wheezing. Bibasilar crackles. Cardiovascular: Positive S1, positive S2. Regular rate and rhythm. Abdomen: Positive bowel sounds in all 4 quadrants. Soft, nontender, nondistended. : Gómez in place. Normal external genitalia. Rectal: Deferred. Skin: Warm, dry. Intact. Extremities: 2+ radial pulses bilaterally. No lower extremity edema. Neuro: Sedated. laboratory and microbiology Laboratory Tests 10/05/24 03:46 Test 10/05/24 03:46 Range/Units Serum Glucose 115 H 74-106 mg/dL Assessment/Plan Impression: Acute hypoxic respiratory failure On mechanical ventilator Septic shock Perforated viscus Nicotine dependence Events: Remains on vent support On AC mode; RR 24, VT 450, PEEP 5, Fio2 40% Sedated on Versed, Fentanyl On pressors for hemodynamic support Levophed 2 mcg/min and vasopressin 0.04 units/min Titrate to keep mean arterial pressure greater than 65 mmHg. Off Willian-Synephrine IV fluids with NS 100 ml/hr. Continue antibiotics. F/u cultures. Check CVP - goal of 12 to 15 cmH2O. Monitor KWAN drainage Monitor hemoglobin - stable. Plan for CPAP when OK from Surgery standpoint. ABG reviewed, compensated. Labs and imaging reviewed. Rest of plan as noted below. Plan: s/p intubation on mechanical ventilator. On AC mode; RR 24, VT 450, PEEP 5, Fio2 40% Titrate FIO2 to keep O2 saturation above 90%. VAP bundle. Daily ABG and CXR while intubated Sedate for ventilator synchrony S/p PICC line placement Continue antibiotics. F/u cultures. On pressors for hemodynamic support Titrate to keep mean arterial pressure greater than 65 mmHg. Monitor renal function Monitor electrolytes. Supplement as necessary. Monitor ins and outs. GI prophylaxis. DVT prophylaxis. Prognosis: Poor given patient's multiple co-morbidities. Condition: Critical Rest of plan per hospitalist and other consultants. A total of 35 minutes of critical care time was spent reviewing the patient record, examining the patient, making a diagnostic and therapeutic plan, discussing this plan with the medical personnel, following up on diagnostic studies and following the patient for clinical stability excluding any and all procedures. At least 50% of this time was spent in direct, [id number] contact. Thank you, NIDIA Caldera, for allowing me to participate in this patient's care. Further recommendations will depend on the patient's clinical course. Please do not hesitate to contact me if you have any questions or concerns. This medical document was created using an electronic medical record system with [employer] dictation system. Although these documentations are being carefully reviewed, there may still be some phonetic and typographical changes. The errors are purely typographical, due to imperfection on the software program, and do not reflect any compromise in the patient's medical care. Plan discussed with: Other (JASPER Wren) Critical Care Time(min): 35 CC Plasma Assessment Blood Product Administration S: [id number] ARIE LOPEZ MD October 05, 2024 22:46
[2024-10-06] VITALS (109 sets, daily range): BP systolic 93–142; BP diastolic 54–82; PULSE 57–109; RESP 20–26; TEMP 98.2–99; O2SAT 92–100
[2024-10-06 04:28] LABS: Alkaline Phosphatase 57 U/L (46-116); Anion Gap 9 (5-15); BUN/Creatinine Ratio 27.3 (10.0-20.0); Carbon Dioxide 22 mmol/L (20-31); Magnesium 2.2 mg/dL (1.6-2.6); Potassium 4.9 mmol/L (3.5-5.1); Sodium 141 mmol/L (136-145)
[2024-10-06 04:31] LABS: Hematocrit 32.8 % (41.0-53.0); Hemoglobin 11.1 g/dL (13.5-17.5); Mean Corpuscular Hemoglobin 29.3 pg (28.0-32.0); Mean Corpuscular Volume 86.3 fL (80.0-100.0); Nucleated Red Blood Cells % 0.0 %
[2024-10-06 04:58] LABS: Alanine Aminotransferase 401 U/L (7-40); Albumin 2.9 g/dL (3.2-4.8); Bilirubin, Total 1.4 mg/dL (0.2-1.0); Blood Urea Nitrogen 65 mg/dL (9-23); Calcium 8.3 mg/dL (8.7-10.4); Chloride 110 mmol/L (98-107); Glucose 188 mg/dL (74-106)
[2024-10-06 05:03] LABS: Total Protein 4.7 g/dL (5.7-8.2)
--- NOTE | 2024-10-06 05:13 | DVH ---
EXAM: XR Chest, 1 View CLINICAL INDICATION: RESPIRATORY FAILURE TECHNIQUE: Frontal view of the chest. COMPARISON: XY CHEST PORTABLE on DOS: 10/05/24, XY CHEST PORTABLE on DOS: 10/04/24, XY CHEST XRAY 1 V IEW on DOS: 10/04/24, XY CHEST PORTABLE on DOS: 08/22/23 FINDINGS: LUNGS AND PLEURAL SPACES: Pulmonary congestion and edema. Pneumonia cannot be excluded. No pneumot horax. HEART: Unremarkable. No cardiomegaly. MEDIASTINUM: Unremarkable. Normal mediastinal contour. BONES/JOINTS: Unremarkable. No acute fracture. TUBES, LINES AND DEVICES: The endotracheal tube (ETT) is in satisfactory position. Right internal jugular central venous catheter tip in the superior vena cava. Enteric tube tip in the stomach. OTHER FINDINGS: . . . IMPRESSION: Pulmonary congestion and edema. Pneumonia cannot be excluded.
[2024-10-06 08:42] LABS: Base Excess -5.2 mmol/L (-2.0-3.0)
--- NOTE | 2024-10-06 11:29 | DVHPN2 ---
Progress Note Date Seen: October 06, 2024 Medical Necessity Reason Pt with a Central, PICC or Fol: Yes Subjective Review of Systems: RESPIRATORY:Abnormal Other Systems: Patient seen and examined by myself today in follow-up, patient remained intubated on ventilator at the bedside Objective vital signs Vital Sign Date Time Temp Pulse Resp B/P (MAP) Pulse Ox O2 Delivery O2 Flow Rate FiO2 10/06/24 10:23 70 24 104/70 (81) 97 40 10/06/24 10:00 Mechanical Ventilator+ 10/06/24 08:00 98.8 98.8 10/04/24 08:30 2 Total Intake and Output 10/05/24 10/05/24 10/06/24 15:00 23:00 07:00 Intake Total 1457.75 ml 1009.75 ml 1063.75 ml Output Total 2015 ml 2510 ml Balance 1457.75 ml -1005.25 ml -1446.25 ml medications Current Medications Medications Dose Ordered Sig/Wally Route Start Time Stop Time Status Last Admin Dose Admin Norepinephrine Bitartrate 250 ml @ 3.75 mls/hr Q24H IV 10/04/24 08:00 10/05/24 13:05 7.5 MLS/HR Fentanyl Citrate 250 ml @ 2.5 mls/hr Q24H IV 10/04/24 09:45 10/05/24 12:50 2.5 MLS/HR Ondansetron HCl 4 mg Q4HP PRN IV 10/04/24 11:45 Morphine Sulfate 2 mg Q4HPRN PRN IV 10/04/24 11:45 Nitroglycerin 0.4 mg Q5MINP PRN SL 10/04/24 11:45 Morphine Sulfate 2 mg Q30M PRN IV 10/04/24 11:45 Pantoprazole Sodium 40 mg DAILY IV 10/05/24 10:00 10/06/24 09:38 40 MG Lorazepam 50 mg/ Sodium Chloride 50 ml @ 1 mls/hr Q24H IV 10/04/24 18:15 Cancel Midazolam HCl 50 ml @ 1 mls/hr Q24H IV 10/04/24 18:30 10/06/24 05:39 3 MLS/HR Vasopressin 20 units/Sodium Chloride 100 ml @ 12 mls/hr Q8H20M IV 10/04/24 20:30 10/06/24 06:02 12 MLS/HR Acetaminophen 650 mg Q6HPRN PRN NE 10/04/24 21:00 Piperacillin Sod/ Tazobactam Sod 100 ml @ 25 mls/hr Q8HR IV 10/05/24 06:00 10/06/24 05:55 25 MLS/HR Amino Acids 0 ml @ 0 mls/hr PER PHARMACY IV 10/05/24 14:30 UNV Amino Acids 0 ml @ 0 mls/hr PER PHARMACY IV 10/05/24 14:30 Diagnostic Test (Pha) 1 strip Q6HR 10/05/24 18:00 10/06/24 05:39 1 STRIP Insulin Human Regular FOLLOW SLIDING SCALE Q6HR SC 10/05/24 18:00 10/06/24 05:58 4 UNITS Dextrose 50 ml UD IV 10/05/24 14:45 Fat Emulsion Intravenous 50 ml/ Sodium Acetate 10 meq/Calcium Gluconate 2.3 meq/ Magnesium Sulfate 4 meq/ Multivitamins 10 ml/Amino Acids/ Dextrose/Purified Water 1,020.9462 ml @ 42 mls/hr [id number] IV 10/06/24 22:00 10/07/24 21:59 Sodium Chloride 1,000 ml @ 100 mls/hr Q10H IV 10/06/24 11:15 UNV Examination: LUNGS:Normal, CVS:Normal, MSK:Normal laboratory and microbiology Laboratory Tests 10/06/24 03:45 Test 10/06/24 03:45 Range/Units Serum Glucose 188 H 74-106 mg/dL Microbiology Date/Time Source Procedure Growth Status 10/05/24 15:05 Voided Urine Urine Culture - Preliminary Resulted 10/04/24 17:10 Nose MRSA Screen - Final Complete 10/04/24 07:01 Blood Blood Culture - Preliminary NO GROWTH AFTER 48 HOURS OF INCUBATION. Resulted Labs and/or images reviewed: Image(s) reviewed by me Problem List/Assessment/Plan Problem List/Assessment/Plan Acute kidney injury likely ATN, FeNa ,> 2% Acute respiratory failure, patient intubated on ventilator Hemodynamic shock acute blood loss anemia Perforated gastric ulcer status post surgery 10/04 Hyponatremia resolved Acute blood loss anemia status post PRBC Recommendations Kidney function worsened today Decreased urine output Barrios catheter Strict I&Os I agree with IV fluid hydration Electrolytes replacement We will continue to follow up Plan discussed with: Spouse, Other (Nurse) My Orders My Orders Orders - MILADY ANDERSON MD Procedure Category Date Status Time Sodium Chloride 0.9% PHA 10/06/24 Logged 11:15 CC Plasma Assessment Blood Product Administration S: [id number] MILADY ANDERSON MD October 06, 2024 11:29
[2024-10-06] MEDS: SODIUM CHLORIDE 0.9% 1,000 ML IV SCH (12:00)
--- NOTE | 2024-10-06 12:12 | DVHPN2 ---
Progress Note - Dictate Date Seen: October 06, 2024 Medical Necessity Reason Pt with a Central, PICC or Fol: Yes Subjective E: no major events o/n. vital signs Vital Sign Date Time Temp Pulse Resp B/P (MAP) Pulse Ox O2 Delivery O2 Flow Rate FiO2 10/06/24 10:23 70 24 104/70 (81) 97 40 10/06/24 10:00 Mechanical Ventilator+ 10/06/24 08:00 98.8 98.8 10/04/24 08:30 2 Total Intake and Output 10/05/24 10/05/24 10/06/24 15:00 23:00 07:00 Intake Total 1457.75 ml 1009.75 ml 1063.75 ml Output Total 2015 ml 2510 ml Balance 1457.75 ml -1005.25 ml -1446.25 ml medications Current Medications Medications Dose Ordered Sig/Wally Route Start Time Stop Time Status Last Admin Dose Admin Norepinephrine Bitartrate 250 ml @ 3.75 mls/hr Q24H IV 10/04/24 08:00 10/05/24 13:05 7.5 MLS/HR Fentanyl Citrate 250 ml @ 2.5 mls/hr Q24H IV 10/04/24 09:45 10/05/24 12:50 2.5 MLS/HR Ondansetron HCl 4 mg Q4HP PRN IV 10/04/24 11:45 Morphine Sulfate 2 mg Q4HPRN PRN IV 10/04/24 11:45 Nitroglycerin 0.4 mg Q5MINP PRN SL 10/04/24 11:45 Morphine Sulfate 2 mg Q30M PRN IV 10/04/24 11:45 Pantoprazole Sodium 40 mg DAILY IV 10/05/24 10:00 10/06/24 09:38 40 MG Lorazepam 50 mg/ Sodium Chloride 50 ml @ 1 mls/hr Q24H IV 10/04/24 18:15 Cancel Midazolam HCl 50 ml @ 1 mls/hr Q24H IV 10/04/24 18:30 10/06/24 05:39 3 MLS/HR Vasopressin 20 units/Sodium Chloride 100 ml @ 12 mls/hr Q8H20M IV 10/04/24 20:30 10/06/24 06:02 12 MLS/HR Acetaminophen 650 mg Q6HPRN PRN [place] 10/04/24 21:00 Piperacillin Sod/ Tazobactam Sod 100 ml @ 25 mls/hr Q8HR IV 10/05/24 06:00 10/06/24 05:55 25 MLS/HR Amino Acids 0 ml @ 0 mls/hr PER PHARMACY IV 10/05/24 14:30 UNV Amino Acids 0 ml @ 0 mls/hr PER PHARMACY IV 10/05/24 14:30 Diagnostic Test (Pha) 1 strip Q6HR 10/05/24 18:00 10/06/24 11:51 1 STRIP Insulin Human Regular FOLLOW SLIDING SCALE Q6HR SC 10/05/24 18:00 10/06/24 05:58 4 UNITS Dextrose 50 ml UD IV 10/05/24 14:45 Fat Emulsion Intravenous 50 ml/ Sodium Acetate 10 meq/Calcium Gluconate 2.3 meq/ Magnesium Sulfate 4 meq/ Multivitamins 10 ml/Amino Acids/ Dextrose/Purified Water 1,020.9462 ml @ 42 mls/hr [id number] IV 10/06/24 22:00 10/07/24 21:59 Sodium Chloride 1,000 ml @ 100 mls/hr Q10H IV 10/06/24 11:15 UNV objective GEN: sedated. intubated. ABD: surgical dressing intact/clean. NGT min. KWAN with light serosang. laboratory and microbiology Laboratory Tests 10/06/24 03:45 Test 10/06/24 03:45 Range/Units Serum Glucose 188 H 74-106 mg/dL Assessment/Plan A: 1. POD #2 s/p ex lap with repair of large perforated pyloric ulcer 2. septic shock improving 3. GIOVANI P: 1. cont curr tx Plan discussed with: Other CC Plasma Assessment Blood Product Administration S: [id number] SAMMIE LEONARDO MD October 06, 2024 12:12
--- NOTE | 2024-10-06 14:03 | DVHPN2 ---
Subjective Patient intubated and sedated Reviewed: Care Plan, H&P, Labs, Medications Changes from previous H/P or p: No Changes General: Per HPI Objective Vitals Vital Signs Date Time Temp Pulse Resp B/P (MAP) Pulse Ox O2 Delivery O2 Flow Rate FiO2 10/06/24 12:15 77 24 106/70 (82) 97 107/67 (80) 10/06/24 12:00 Mechanical Ventilator+ 40 40 10/06/24 12:00 99.0 99.0 10/04/24 08:30 2 Intake/Output Intake and Output 10/06/24 07:00 Intake Total 3531.25 ml Output Total 4525 ml Balance -993.75 ml IV Total 3237.25 ml Blood Product 294 ml Output Urine Total 3100 ml Gastric Drainage Total 1210 ml Oral Regurgitation 10 ml Drainage Total 205 ml General Appearance: moderate distress, Other (Chemically sedated) HEENT: Atraumatic, PERRLA Lungs: Clear to auscultation, Normal air movement, Other (Mechanical ventilation, FiO2 40%) Cardiovascular: Regular rate, Normal S1, Normal S2 Abdomen: Other (Absent bowel sounds. KWAN drain x3 with serosanguineous fluid) Musculoskeletal: Normal sensory function, Normal motor function Skin: Dry, Intact, Other (Abdominal incision dry and intact, we will approximately) Medications Current Medications Medications Dose Ordered Sig/Wally Route Start Time Stop Time Status Last Admin Dose Admin Norepinephrine Bitartrate 250 ml @ 3.75 mls/hr Q24H IV 10/04/24 08:00 10/05/24 13:05 7.5 MLS/HR Fentanyl Citrate 250 ml @ 2.5 mls/hr Q24H IV 10/04/24 09:45 10/05/24 12:50 2.5 MLS/HR Ondansetron HCl 4 mg Q4HP PRN IV 10/04/24 11:45 Morphine Sulfate 2 mg Q4HPRN PRN IV 10/04/24 11:45 Nitroglycerin 0.4 mg Q5MINP PRN SL 10/04/24 11:45 Morphine Sulfate 2 mg Q30M PRN IV 10/04/24 11:45 Pantoprazole Sodium 40 mg DAILY IV 10/05/24 10:00 10/06/24 09:38 40 MG Lorazepam 50 mg/ Sodium Chloride 50 ml @ 1 mls/hr Q24H IV 10/04/24 18:15 Cancel Midazolam HCl 50 ml @ 1 mls/hr Q24H IV 10/04/24 18:30 10/06/24 05:39 3 MLS/HR Vasopressin 20 units/Sodium Chloride 100 ml @ 12 mls/hr Q8H20M IV 10/04/24 20:30 10/06/24 06:02 12 MLS/HR Acetaminophen 650 mg Q6HPRN PRN [place] 10/04/24 21:00 Piperacillin Sod/ Tazobactam Sod 100 ml @ 25 mls/hr Q8HR IV 10/05/24 06:00 10/06/24 13:51 25 MLS/HR Amino Acids 0 ml @ 0 mls/hr PER PHARMACY IV 10/05/24 14:30 UNV Amino Acids 0 ml @ 0 mls/hr PER PHARMACY IV 10/05/24 14:30 Diagnostic Test (Pha) 1 strip Q6HR 10/05/24 18:00 10/06/24 11:51 1 STRIP Insulin Human Regular FOLLOW SLIDING SCALE Q6HR SC 10/05/24 18:00 10/06/24 05:58 4 UNITS Dextrose 50 ml UD IV 10/05/24 14:45 Fat Emulsion Intravenous 50 ml/ Sodium Acetate 10 meq/Calcium Gluconate 2.3 meq/ Magnesium Sulfate 4 meq/ Multivitamins 10 ml/Amino Acids/ Dextrose/Purified Water 1,020.9462 ml @ 42 mls/hr [id number] IV 10/06/24 22:00 10/07/24 21:59 Sodium Chloride 1,000 ml @ 100 mls/hr Q10H IV 10/06/24 11:15 10/06/24 12:00 100 MLS/HR Laboratory Results Laboratory Tests 10/06/24 03:45 Chemistry Test 10/06/24 03:45 Albumin 2.9 g/dL (3.2-4.8) L Calcium Level 8.3 mg/dL (8.7-10.4) L Magnesium Level 2.2 mg/dL (1.6-2.6) Phosphorus Level 4.9 mg/dL (2.4-5.1) Total Protein 4.7 g/dL (5.7-8.2) L LFT Test 10/06/24 03:45 Alanine Aminotransferase (ALT) 401 U/L (7-40) H Alkaline Phosphatase 57 U/L (46-116) Aspartate Amino Transferase (AST) 305 U/L (13-40) H Total Bilirubin 1.4 mg/dL (0.2-1.0) H Urinalysis Test 10/05/24 15:05 Urine Color Light-yellow (Yellow) Urine Clarity Hazy (Clear) H Urine pH 5.5 (5.0-9.0) Urine Specific [place] 1.018 (1.001-1.035) Urine Protein 1+ (Negative) H Urine Ketones Negative (Negative) Urine Blood 3+ /uL (Negative) H Urine Nitrite Negative (Negative) Urine Bilirubin Negative (Negative) Urine Urobilinogen Normal mg/dL (Negative) Urine Leukocyte Esterase Negative /uL (Negative) Urine RBC 1 /hpf (0 - 3) Urine Microscopic WBC 9 /HPF (0-3) H Urine Squamous Epithelial Cells Few /hpf (<5) Urine Bacteria Few /hpf (None Seen) H Urine Mucus Few (None Seen) Urine Creatinine 39.22 mg/dL (30.0-125.0) Urine Sodium 62 mmol/L (40-220) Urine Glucose Trace mg/dL (Normal) Urine Total Protein 85.0 mg/dL (1-14) H Blood Gas Results Test 10/06/24 08:14 Arterial Blood pH 7.318 (7.350-7.450) FiO2 % 40.0 Microbiology Microbiology Date/Time Source Procedure Growth Status 10/05/24 15:05 Voided Urine Urine Culture - Preliminary Resulted 10/04/24 17:10 Nose MRSA Screen - Final Complete 10/04/24 07:01 Blood Blood Culture - Preliminary NO GROWTH AFTER 48 HOURS OF INCUBATION. Resulted Labs and/or images reviewed: Labs reviewed by me, Image(s) reviewed by me Assessment/Plan Assessment/Plan Impression: -severe septic shock -pneumoperitoneum secondary to perforated gastric ulcer -acute kidney injury, hemodynamically mediated, probable VMN -acute hypoxic respiratory failure -shock liver -nicotine dependence -history of CVA Plan: -patient postop day 2, exploratory laparotomy with repair of gastric ulcer -continue antibiotic therapy with Zosyn, stop vancomycin given worsening renal function -nephrology consultation: Recommendations appreciated, patient's IV fluids increase -TPN -vasopressor therapy: Norepinephrine has been weaned off, patient currently on vasopressin at 0.4 -Protonix 40 mg IV twice a day -further recommendations per surgical consultation -continue current sedation Critical care time spent with patient discussing and formulating plan of care: 40 minutes. This does not include time spent performing procedures. This medical document was created using an electronic medical record system with [employer] dictation system. Although this document has been carefully reviewed, there may still be some phonetic and typographical errors. These areas are purely typographical due to imperfections of the software programs, and do not reflect any compromise in the patient's medical care. Plan discussed with: Patient, Other (RN, sister) My Orders Orders - CHEYENNE PIKE NP Procedure Category Date Status Time Complete Blood Count LAB 10/07/24 Verified 04:00 Date of Service: October 06, 2024 Billing Provider: CHEYENNE PIKE NP Common Visit Codes: 64802-[id number] CARE 30-74 MIN CHEYENNE PIKE NP October 06, 2024 14:03
--- NOTE | 2024-10-06 22:04 | DVHPN2 ---
Progress Note - Dictate Date Seen: October 06, 2024 Medical Necessity Reason Pt with a Central, PICC or Fol: Yes The following are medically ne: Gómez Catheter Reason for gómez catheter: Strict I&O vital signs Vital Sign Date Time Temp Pulse Resp B/P (MAP) Pulse Ox O2 Delivery O2 Flow Rate FiO2 10/06/24 20:39 68 24 115/63 (80) 99 40 10/06/24 20:00 Mechanical Ventilator+ 10/06/24 16:00 98.8 98.8 10/04/24 08:30 2 Total Intake and Output 10/05/24 10/05/24 10/06/24 15:00 23:00 07:00 Intake Total 1457.75 ml 1009.75 ml 1063.75 ml Output Total 2015 ml 2510 ml Balance 1457.75 ml -1005.25 ml -1446.25 ml medications Current Medications Medications Dose Ordered Sig/Wally Route Start Time Stop Time Status Last Admin Dose Admin Norepinephrine Bitartrate 250 ml @ 3.75 mls/hr Q24H IV 10/04/24 08:00 10/05/24 13:05 7.5 MLS/HR Fentanyl Citrate 250 ml @ 2.5 mls/hr Q24H IV 10/04/24 09:45 10/06/24 21:22 10 MLS/HR Ondansetron HCl 4 mg Q4HP PRN IV 10/04/24 11:45 Morphine Sulfate 2 mg Q4HPRN PRN IV 10/04/24 11:45 Nitroglycerin 0.4 mg Q5MINP PRN SL 10/04/24 11:45 Morphine Sulfate 2 mg Q30M PRN IV 10/04/24 11:45 Pantoprazole Sodium 40 mg DAILY IV 10/05/24 10:00 10/06/24 09:38 40 MG Lorazepam 50 mg/ Sodium Chloride 50 ml @ 1 mls/hr Q24H IV 10/04/24 18:15 Cancel Midazolam HCl 50 ml @ 1 mls/hr Q24H IV 10/04/24 18:30 10/06/24 05:39 3 MLS/HR Vasopressin 20 units/Sodium Chloride 100 ml @ 12 mls/hr Q8H20M IV 10/04/24 20:30 10/06/24 14:42 12 MLS/HR Acetaminophen 650 mg Q6HPRN PRN [place] 10/04/24 21:00 Piperacillin Sod/ Tazobactam Sod 100 ml @ 25 mls/hr Q8HR IV 10/05/24 06:00 10/06/24 13:51 25 MLS/HR Amino Acids 0 ml @ 0 mls/hr PER PHARMACY IV 10/05/24 14:30 UNV Amino Acids 0 ml @ 0 mls/hr PER PHARMACY IV 10/05/24 14:30 Diagnostic Test (Pha) 1 strip Q6HR 10/05/24 18:00 10/06/24 17:49 1 STRIP Insulin Human Regular FOLLOW SLIDING SCALE Q6HR SC 10/05/24 18:00 10/06/24 17:53 2 UNITS Dextrose 50 ml UD IV 10/05/24 14:45 Fat Emulsion Intravenous 50 ml/ Sodium Acetate 10 meq/Calcium Gluconate 2.3 meq/ Magnesium Sulfate 4 meq/ Multivitamins 10 ml/Amino Acids/ Dextrose/Purified Water 1,020.9462 ml @ 42 mls/hr [id number] IV 10/06/24 22:00 10/07/24 21:59 Sodium Chloride 1,000 ml @ 100 mls/hr Q10H IV 10/06/24 11:15 10/06/24 12:00 100 MLS/HR laboratory and microbiology Laboratory Tests 10/06/24 03:45 Test 10/06/24 03:45 Range/Units Serum Glucose 188 H 74-106 mg/dL Assessment/Plan Impression Acute hypoxemic respiratory failure Perforated viscus Septic shock Smoker Patient seen and examined in ICU Events On mechanical ventilation S/p intubation PEEP 5, FiO2 40% S/p ex lap and repair Ulcer found on endoscopy Labs and imaging reviewed ABG reviewed Management Vent support Titrate to maintain sats 90% or above Sedation for vent synchrony Patient not ready for extubation per GI Continue antibiotics F/u cultures Bronchodilators Monitor renal function Monitor electrolytes Supplement as needed Pressors as needed for hemodynamic support To maintain a mean arterial pressure of 65 mmHg F/u GI DVT prophylaxis Critical care time 35 minutes Dietary Evaluation Review Comments: 1. Continue TPN to meet at least 75% estimated needs 2. Continue current POC Expected Outcomes/Goals: FU 2-3 days to meet adequate energy & protein within 7 days of NPO Plan discussed with: Other (Rn) CC Plasma Assessment Blood Product Administration S: [id number] VALENTE DEE MD October 06, 2024 22:04
[2024-10-06] MEDS: TPN PER PHARMACY IV NR (22:44)
[2024-10-07] VITALS (111 sets, daily range): BP systolic 97–151; BP diastolic 51–91; PULSE 65–117; RESP 20–26; TEMP 97.4–98.6; O2SAT 95–99
[2024-10-07 03:45] LABS: Hematocrit 29.6 % (41.0-53.0); Hemoglobin 10.0 g/dL (13.5-17.5); Mean Corpuscular Hemoglobin 29.4 pg (28.0-32.0); Mean Corpuscular Volume 86.9 fL (80.0-100.0); Nucleated Red Blood Cells % 0.0 %
[2024-10-07 04:04] LABS: Alkaline Phosphatase 77 U/L (46-116); Anion Gap 10 (5-15); BUN/Creatinine Ratio 27.8 (10.0-20.0); Carbon Dioxide 22 mmol/L (20-31); Magnesium 2.5 mg/dL (1.6-2.6); Potassium 4.3 mmol/L (3.5-5.1); Sodium 143 mmol/L (136-145)
[2024-10-07 04:42] LABS: Alanine Aminotransferase 336 U/L (7-40); Albumin 2.9 g/dL (3.2-4.8); Bilirubin, Total 1.6 mg/dL (0.2-1.0); Blood Urea Nitrogen 66 mg/dL (9-23); Calcium 7.7 mg/dL (8.7-10.4); Chloride 111 mmol/L (98-107); Glucose 137 mg/dL (74-106); Total Protein 4.8 g/dL (5.7-8.2)
--- NOTE | 2024-10-07 06:29 | DVH ---
CHEST RADIOGRAPH Indication: RESPIRATORY FAILURE Technique: Single frontal view of the chest was obtained Comparison: XY CHEST PORTABLE on DOS: 10/06/24 FINDINGS: Lines and Tubes: Right central venous catheter terminates in the superior vena cava. The enteric tube courses below the left hemidiaphragm and the tip extends outside the field of view. The endotrachea l tube terminates 3.7 cm above the dunia. There is catheter in the left upper quadrant. Lungs: Bilateral opacities are similar to prior study. Pleura: Bilateral pleural effusions, similar to prior study. No pneumothorax. Cardiomediastinal contours: Unremarkable Bones: No acute osseous abnormality. IMPRESSION: 1. Stable position of the support lines and tubes. 2. Bilateral opacities and pleural effusions similar to prior study.
[2024-10-07 08:07] LABS: Base Excess -4.9 mmol/L (-2.0-3.0)
--- NOTE | 2024-10-07 09:14 | DVHPN2 ---
Subjective Patient intubated and sedated Reviewed: Care Plan, H&P, Labs, Medications Changes from previous H/P or p: No Changes General: Per HPI Objective Vitals Vital Signs Date Time Temp Pulse Resp B/P (MAP) Pulse Ox O2 Delivery O2 Flow Rate FiO2 10/07/24 08:30 80 24 120/63 (82) 95 40 10/07/24 08:00 Mechanical Ventilator+ 10/07/24 06:45 97.4 97.4 Intake/Output Intake and Output 10/07/24 07:00 Intake Total 3898.75 ml Output Total 2895 ml Balance 1003.75 ml Intake Oral 0 ml IV Total 3898.75 ml Tube Feeding 0 ml Output Urine Total 2300 ml Gastric Drainage Total 450 ml Other 145 ml General Appearance: moderate distress, Other (Chemically sedated) HEENT: Atraumatic, PERRLA Lungs: Clear to auscultation, Normal air movement, Other (Mechanical ventilation, FiO2 40%) Cardiovascular: Regular rate, Normal S1, Normal S2 Abdomen: Other (Absent bowel sounds. KWAN drain x3 with serosanguineous fluid) Musculoskeletal: Normal sensory function, Normal motor function Skin: Dry, Intact, Other (Abdominal incision dry and intact, we will approximately) Psych/Mental Status: Other (Unable to assess) Medications Current Medications Medications Dose Ordered Sig/Wally Route Start Time Stop Time Status Last Admin Dose Admin Norepinephrine Bitartrate 250 ml @ 3.75 mls/hr Q24H IV 10/04/24 08:00 10/05/24 13:05 7.5 MLS/HR Fentanyl Citrate 250 ml @ 2.5 mls/hr Q24H IV 10/04/24 09:45 10/06/24 21:22 10 MLS/HR Ondansetron HCl 4 mg Q4HP PRN IV 10/04/24 11:45 Morphine Sulfate 2 mg Q4HPRN PRN IV 10/04/24 11:45 Nitroglycerin 0.4 mg Q5MINP PRN SL 10/04/24 11:45 Morphine Sulfate 2 mg Q30M PRN IV 10/04/24 11:45 Lorazepam 50 mg/ Sodium Chloride 50 ml @ 1 mls/hr Q24H IV 10/04/24 18:15 Cancel Midazolam HCl 50 ml @ 1 mls/hr Q24H IV 10/04/24 18:30 10/07/24 07:19 5 MLS/HR Vasopressin 20 units/Sodium Chloride 100 ml @ 12 mls/hr Q8H20M IV 10/04/24 20:30 10/06/24 22:26 12 MLS/HR Acetaminophen 650 mg Q6HPRN PRN [place] 10/04/24 21:00 Amino Acids 0 ml @ 0 mls/hr PER PHARMACY IV 10/05/24 14:30 UNV Amino Acids 0 ml @ 0 mls/hr PER PHARMACY IV 10/05/24 14:30 Diagnostic Test (Pha) 1 strip Q6HR 10/05/24 18:00 10/07/24 05:42 1 STRIP Insulin Human Regular FOLLOW SLIDING SCALE Q6HR SC 10/05/24 18:00 10/06/24 23:42 2 UNITS Dextrose 50 ml UD IV 10/05/24 14:45 Fat Emulsion Intravenous 50 ml/ Sodium Acetate 10 meq/Calcium Gluconate 2.3 meq/ Magnesium Sulfate 4 meq/ Multivitamins 10 ml/Amino Acids/ Dextrose/Purified Water 1,020.9462 ml @ 42 mls/hr [id number] IV 10/06/24 22:00 10/07/24 21:59 10/06/24 22:44 42 MLS/HR Sodium Chloride 1,000 ml @ 100 mls/hr Q10H IV 10/06/24 11:15 10/07/24 07:20 100 MLS/HR Pantoprazole Sodium 40 mg BID IV 10/07/24 10:00 UNV Meropenem 50 ml @ 17 mls/hr Q12HR IV 10/07/24 10:00 UNV Micafungin Sodium 100 mg/Sodium Chloride 100 ml @ 100 mls/hr DAILY IV 10/07/24 10:00 UNV Laboratory Results Laboratory Tests 10/07/24 03:10 Chemistry Test 10/07/24 03:10 Albumin 2.9 g/dL (3.2-4.8) L Calcium Level 7.7 mg/dL (8.7-10.4) L Magnesium Level 2.5 mg/dL (1.6-2.6) Total Protein 4.8 g/dL (5.7-8.2) L LFT Test 10/07/24 03:10 Alanine Aminotransferase (ALT) 336 U/L (7-40) H Alkaline Phosphatase 77 U/L (46-116) Aspartate Amino Transferase (AST) 189 U/L (13-40) H Total Bilirubin 1.6 mg/dL (0.2-1.0) H Urinalysis Test 10/05/24 15:05 Urine Color Light-yellow (Yellow) Urine Clarity Hazy (Clear) H Urine pH 5.5 (5.0-9.0) Urine Specific Thurmond 1.018 (1.001-1.035) Urine Protein 1+ (Negative) H Urine Ketones Negative (Negative) Urine Blood 3+ /uL (Negative) H Urine Nitrite Negative (Negative) Urine Bilirubin Negative (Negative) Urine Urobilinogen Normal mg/dL (Negative) Urine Leukocyte Esterase Negative /uL (Negative) Urine RBC 1 /hpf (0 - 3) Urine Microscopic WBC 9 /HPF (0-3) H Urine Squamous Epithelial Cells Few /hpf (<5) Urine Bacteria Few /hpf (None Seen) H Urine Mucus Few (None Seen) Urine Creatinine 39.22 mg/dL (30.0-125.0) Urine Sodium 62 mmol/L (40-220) Urine Glucose Trace mg/dL (Normal) Urine Total Protein 85.0 mg/dL (1-14) H Blood Gas Results Test 10/07/24 07:43 Arterial Blood pH 7.356 (7.350-7.450) FiO2 % 40.0 Microbiology Microbiology Date/Time Source Procedure Growth Status 10/05/24 15:05 Voided Urine Urine Culture - Final Complete 10/04/24 17:10 Nose MRSA Screen - Final Complete 10/04/24 07:01 Blood Blood Culture - Preliminary NO GROWTH AFTER 72 HOURS OF INCUBATION. Resulted Labs and/or images reviewed: Labs reviewed by me, Image(s) reviewed by me Assessment/Plan Assessment/Plan Impression: -severe septic shock -pneumoperitoneum secondary to perforated gastric ulcer -acute kidney injury, hemodynamically mediated, probable VMN -acute hypoxic respiratory failure -shock liver -nicotine dependence -history of CVA Plan: Events: Patient now off of vasopressors. WBC remains elevated. Urine output adequate with persistent acute kidney injury. -change antibiotic therapy to Merrem panel and micafungin -nephrology consultation: Recommendations appreciated, patient's IV fluids increase -TPN -vasopressor therapy: Used to keep map greater than 65 mmHg -Protonix 40 mg IV twice a day -further recommendations per surgical consultation -continue current sedation -repeat labs, chest x-ray, ABG in a.m. Reassessed tomorrow for spontaneous breathing trial Critical care time spent with patient discussing and formulating plan of care: 40 minutes. This does not include time spent performing procedures. This medical document was created using an electronic medical record system with [employer] dictation system. Although this document has been carefully reviewed, there may still be some phonetic and typographical errors. These areas are purely typographical due to imperfections of the software programs, and do not reflect any compromise in the patient's medical care. Plan discussed with: Patient, Other (RN) My Orders Orders - CHEYENNE PIKE NP Procedure Category Date Status Time Abg W/ Co-Ox RT 10/07/24 Logged 05:48 Pantoprazole PHA 10/07/24 Logged (Protonix) 10:00 Meropenem 500mg Ivpb PHA 10/07/24 Logged (Merrem 500mg/Ns) 10:00 Micafungin Sodium PHA 10/07/24 Logged (Mycamine) 10:00 Complete Blood Count LAB 10/08/24 Verified 05:00 Complete Blood Count LAB 10/09/24 Verified 05:00 Complete Blood Count LAB 10/10/24 Verified 05:00 Comprehensive LAB 10/08/24 Verified Metabolic Panel 05:00 Comprehensive LAB 10/09/24 Verified Metabolic Panel 05:00 Comprehensive LAB 10/10/24 Verified Metabolic Panel 05:00 Chest Portable XY 10/08/24 Logged 05:00 Chest Portable XY 10/09/24 Logged 05:00 Chest Portable XY 10/10/24 Logged 05:00 Abg W/ Co-Ox RT 10/08/24 Logged 05:00 Abg W/ Co-Ox RT 10/09/24 Logged 05:00 Abg W/ Co-Ox RT 10/10/24 Logged 05:00 Date of Service: October 07, 2024 Billing Provider: CHEYENNE PIKE NP Common Visit Codes: [id number] CARE 30-74 MIN CHEYENNE PIKE NP October 07, 2024 09:14
--- NOTE | 2024-10-07 09:59 | DVHPN2 ---
Progress Note - Dictate Date Seen: October 07, 2024 Medical Necessity Reason Pt with a Central, PICC or Fol: Yes The following are medically ne: Gómez Catheter Reason for gómez catheter: Strict I&O Subjective E: no major events o/n. vital signs Vital Sign Date Time Temp Pulse Resp B/P (MAP) Pulse Ox O2 Delivery O2 Flow Rate FiO2 10/07/24 09:35 76 24 99/57 (71) 97 40 10/07/24 08:00 Mechanical Ventilator+ 10/07/24 06:45 97.4 97.4 Total Intake and Output 10/06/24 10/06/24 10/07/24 14:59 22:59 06:59 Intake Total 1210.25 ml 1324.5 ml 1496.5 ml Output Total 1440 ml 1455 ml Balance 1210.25 ml -115.5 ml 41.5 ml medications Current Medications Medications Dose Ordered Sig/Wally Route Start Time Stop Time Status Last Admin Dose Admin Norepinephrine Bitartrate 250 ml @ 3.75 mls/hr Q24H IV 10/04/24 08:00 10/05/24 13:05 7.5 MLS/HR Fentanyl Citrate 250 ml @ 2.5 mls/hr Q24H IV 10/04/24 09:45 10/06/24 21:22 10 MLS/HR Ondansetron HCl 4 mg Q4HP PRN IV 10/04/24 11:45 Morphine Sulfate 2 mg Q4HPRN PRN IV 10/04/24 11:45 Nitroglycerin 0.4 mg Q5MINP PRN SL 10/04/24 11:45 Morphine Sulfate 2 mg Q30M PRN IV 10/04/24 11:45 Lorazepam 50 mg/ Sodium Chloride 50 ml @ 1 mls/hr Q24H IV 10/04/24 18:15 Cancel Midazolam HCl 50 ml @ 1 mls/hr Q24H IV 10/04/24 18:30 10/07/24 07:19 5 MLS/HR Vasopressin 20 units/Sodium Chloride 100 ml @ 12 mls/hr Q8H20M IV 10/04/24 20:30 10/06/24 22:26 12 MLS/HR Acetaminophen 650 mg Q6HPRN PRN [place] 10/04/24 21:00 Amino Acids 0 ml @ 0 mls/hr PER PHARMACY IV 10/05/24 14:30 UNV Amino Acids 0 ml @ 0 mls/hr PER PHARMACY IV 10/05/24 14:30 Diagnostic Test (Pha) 1 strip Q6HR 10/05/24 18:00 10/07/24 05:42 1 STRIP Insulin Human Regular FOLLOW SLIDING SCALE Q6HR SC 10/05/24 18:00 10/06/24 23:42 2 UNITS Dextrose 50 ml UD IV 10/05/24 14:45 Fat Emulsion Intravenous 50 ml/ Sodium Acetate 10 meq/Calcium Gluconate 2.3 meq/ Magnesium Sulfate 4 meq/ Multivitamins 10 ml/Amino Acids/ Dextrose/Purified Water 1,020.9462 ml @ 42 mls/hr [id number] IV 10/06/24 22:00 10/07/24 21:59 10/06/24 22:44 42 MLS/HR Sodium Chloride 1,000 ml @ 100 mls/hr Q10H IV 10/06/24 11:15 10/07/24 07:20 100 MLS/HR Pantoprazole Sodium 40 mg BID IV 10/07/24 10:00 Meropenem 50 ml @ 17 mls/hr Q12HR IV 10/07/24 10:00 UNV Micafungin Sodium 100 mg/Sodium Chloride 100 ml @ 100 mls/hr DAILY IV 10/07/24 10:00 Meropenem 50 ml @ 16.6 mls/hr Q12HR IV 10/07/24 10:00 objective GEN: sedated. intubated. ABD: surgical incision clean. NGT min. KWAN 30 mL laboratory and microbiology Laboratory Tests 10/07/24 03:10 Test 10/07/24 03:10 Range/Units Serum Glucose 137 H 74-106 mg/dL Assessment/Plan A: 1. POD #3 s/p ex lap with repair of large perforated pyloric ulcer 2. septic shock improving 3. GIOVANI 4. worsening leukocytosis. P: 1. agree with fungal coverage. Dietary Evaluation Review Comments: 1. Continue TPN to meet at least 75% estimated needs 2. Continue current POC Expected Outcomes/Goals: FU 2-3 days to meet adequate energy & protein within 7 days of NPO Plan discussed with: Other CC Plasma Assessment Blood Product Administration S: [id number] SAMMIE LEONARDO MD October 07, 2024 09:59
[2024-10-07] MEDS ORDERED: MEROPENEM 500MG IVPB 50 ML IV SCH (10:00)
--- NOTE | 2024-10-07 10:03 | DVHPN2 ---
Progress Note Date Seen: October 07, 2024 Medical Necessity Reason Pt with a Central, PICC or Fol: Yes The following are medically ne: Gómez Catheter Reason for gómez catheter: Strict I&O Subjective Review of Systems: RESPIRATORY:Abnormal Other Systems: Patient seen and examined by myself today in follow-up, patient remained intubated on ventilator Objective vital signs Vital Sign Date Time Temp Pulse Resp B/P (MAP) Pulse Ox O2 Delivery O2 Flow Rate FiO2 10/07/24 09:35 76 24 99/57 (71) 97 40 10/07/24 08:00 Mechanical Ventilator+ 10/07/24 06:45 97.4 97.4 Total Intake and Output 10/06/24 10/06/24 10/07/24 15:00 23:00 07:00 Intake Total 1240.25 ml 1429 ml 1394.0 ml Output Total 1440 ml 1455 ml Balance 1240.25 ml -11 ml -61.0 ml medications Current Medications Medications Dose Ordered Sig/Wally Route Start Time Stop Time Status Last Admin Dose Admin Norepinephrine Bitartrate 250 ml @ 3.75 mls/hr Q24H IV 10/04/24 08:00 10/05/24 13:05 7.5 MLS/HR Fentanyl Citrate 250 ml @ 2.5 mls/hr Q24H IV 10/04/24 09:45 10/06/24 21:22 10 MLS/HR Ondansetron HCl 4 mg Q4HP PRN IV 10/04/24 11:45 Morphine Sulfate 2 mg Q4HPRN PRN IV 10/04/24 11:45 Nitroglycerin 0.4 mg Q5MINP PRN SL 10/04/24 11:45 Morphine Sulfate 2 mg Q30M PRN IV 10/04/24 11:45 Lorazepam 50 mg/ Sodium Chloride 50 ml @ 1 mls/hr Q24H IV 10/04/24 18:15 Cancel Midazolam HCl 50 ml @ 1 mls/hr Q24H IV 10/04/24 18:30 10/07/24 07:19 5 MLS/HR Vasopressin 20 units/Sodium Chloride 100 ml @ 12 mls/hr Q8H20M IV 10/04/24 20:30 10/06/24 22:26 12 MLS/HR Acetaminophen 650 mg Q6HPRN PRN [place] 10/04/24 21:00 Amino Acids 0 ml @ 0 mls/hr PER PHARMACY IV 10/05/24 14:30 UNV Amino Acids 0 ml @ 0 mls/hr PER PHARMACY IV 10/05/24 14:30 Diagnostic Test (Pha) 1 strip Q6HR 10/05/24 18:00 10/07/24 05:42 1 STRIP Insulin Human Regular FOLLOW SLIDING SCALE Q6HR SC 10/05/24 18:00 10/06/24 23:42 2 UNITS Dextrose 50 ml UD IV 10/05/24 14:45 Fat Emulsion Intravenous 50 ml/ Sodium Acetate 10 meq/Calcium Gluconate 2.3 meq/ Magnesium Sulfate 4 meq/ Multivitamins 10 ml/Amino Acids/ Dextrose/Purified Water 1,020.9462 ml @ 42 mls/hr [id number] IV 10/06/24 22:00 10/07/24 21:59 10/06/24 22:44 42 MLS/HR Sodium Chloride 1,000 ml @ 100 mls/hr Q10H IV 10/06/24 11:15 10/07/24 07:20 100 MLS/HR Pantoprazole Sodium 40 mg BID IV 10/07/24 10:00 Meropenem 50 ml @ 17 mls/hr Q12HR IV 10/07/24 10:00 UNV Micafungin Sodium 100 mg/Sodium Chloride 100 ml @ 100 mls/hr DAILY IV 10/07/24 10:00 Meropenem 50 ml @ 16.6 mls/hr Q12HR IV 10/07/24 10:00 Examination: LUNGS:Normal, CVS:Normal, MSK:Normal laboratory and microbiology Laboratory Tests 10/07/24 03:10 Test 10/07/24 03:10 Range/Units Serum Glucose 137 H 74-106 mg/dL Microbiology Date/Time Source Procedure Growth Status 10/05/24 15:05 Voided Urine Urine Culture - Final Complete 10/04/24 17:10 Nose MRSA Screen - Final Complete 10/04/24 07:01 Blood Blood Culture - Preliminary NO GROWTH AFTER 72 HOURS OF INCUBATION. Resulted Problem List/Assessment/Plan Problem List/Assessment/Plan Acute kidney injury likely ATN, FeNa ,> 2% Acute respiratory failure, patient intubated on ventilator Hemodynamic shock acute blood loss anemia Perforated gastric ulcer status post surgery 10/04 Hyponatremia resolved Pneumonia Sepsis Hypomagnesemia Acute blood loss anemia status post PRBC Recommendations Kidney function stabilize Chronic Kidney Disease stage IIIb Increased urine output Gómez catheter Strict I&Os I agree with IV fluid hydration IV antibiotic Electrolytes replacement Magnesium sulfate IV piggyback We will continue to follow up Plan discussed with: Other (Nurse) My Orders My Orders Orders - MILADY ANDERSON MD Procedure Category Date Status Time Sodium Chloride 0.9% PHA 10/06/24 In Process 11:15 Dietary Evaluation Review Comments: 1. Continue TPN to meet at least 75% estimated needs 2. Continue current POC Expected Outcomes/Goals: FU 2-3 days to meet adequate energy & protein within 7 days of NPO CC Plasma Assessment Blood Product Administration S: [id number] MILADY ANDERSON MD October 07, 2024 10:03
[2024-10-07] MEDS: MEROPENEM 1GM IVPB 50 ML IV SCH (10:05)
[2024-10-07] MEDS: PANTOPRAZOLE 40 MG/10 ML VIAL INJ IV SCH (10:05)
[2024-10-07] MEDS: MICAFUNGIN SODIUM 100 MG in SODIUM CHL 0.9% 100 ML IV SCH (11:18)
--- NOTE | 2024-10-07 20:09 | DVHPN2 ---
Progress Note - Dictate Date Seen: October 07, 2024 Medical Necessity Reason Pt with a Central, PICC or Fol: Yes The following are medically ne: Gómez Catheter Reason for gómez catheter: Strict I&O vital signs Vital Sign Date Time Temp Pulse Resp B/P (MAP) Pulse Ox O2 Delivery O2 Flow Rate FiO2 10/07/24 18:45 71 24 117/72 (87) 98 140/77 (98) 10/07/24 18:11 40 10/07/24 18:00 Mechanical Ventilator+ 10/07/24 16:00 98.4 98.4 Total Intake and Output 10/06/24 10/06/24 10/07/24 15:00 23:00 07:00 Intake Total 1240.25 ml 1429 ml 1394.0 ml Output Total 1440 ml 1455 ml Balance 1240.25 ml -11 ml -61.0 ml medications Current Medications Medications Dose Ordered Sig/Wally Route Start Time Stop Time Status Last Admin Dose Admin Norepinephrine Bitartrate 250 ml @ 3.75 mls/hr Q24H IV 10/04/24 08:00 10/05/24 13:05 7.5 MLS/HR Fentanyl Citrate 250 ml @ 2.5 mls/hr Q24H IV 10/04/24 09:45 10/07/24 11:49 17.5 MLS/HR Ondansetron HCl 4 mg Q4HP PRN IV 10/04/24 11:45 Morphine Sulfate 2 mg Q4HPRN PRN IV 10/04/24 11:45 Nitroglycerin 0.4 mg Q5MINP PRN SL 10/04/24 11:45 Morphine Sulfate 2 mg Q30M PRN IV 10/04/24 11:45 Lorazepam 50 mg/ Sodium Chloride 50 ml @ 1 mls/hr Q24H IV 10/04/24 18:15 Cancel Midazolam HCl 50 ml @ 1 mls/hr Q24H IV 10/04/24 18:30 10/07/24 16:08 5 MLS/HR Vasopressin 20 units/Sodium Chloride 100 ml @ 12 mls/hr Q8H20M IV 10/04/24 20:30 10/06/24 22:26 12 MLS/HR Acetaminophen 650 mg Q6HPRN PRN [place] 10/04/24 21:00 Amino Acids 0 ml @ 0 mls/hr PER PHARMACY IV 10/05/24 14:30 UNV Amino Acids 0 ml @ 0 mls/hr PER PHARMACY IV 10/05/24 14:30 Diagnostic Test (Pha) 1 strip Q6HR 10/05/24 18:00 10/07/24 17:37 1 STRIP Insulin Human Regular FOLLOW SLIDING SCALE Q6HR SC 10/05/24 18:00 10/06/24 23:42 2 UNITS Dextrose 50 ml UD IV 10/05/24 14:45 Fat Emulsion Intravenous 50 ml/ Sodium Acetate 10 meq/Calcium Gluconate 2.3 meq/ Magnesium Sulfate 4 meq/ Multivitamins 10 ml/Amino Acids/ Dextrose/Purified Water 1,020.9462 ml @ 42 mls/hr [id number] IV 10/06/24 22:00 10/07/24 21:59 10/06/24 22:44 42 MLS/HR Sodium Chloride 1,000 ml @ 100 mls/hr Q10H IV 10/06/24 11:15 10/07/24 07:20 100 MLS/HR Pantoprazole Sodium 40 mg BID IV 10/07/24 10:00 10/07/24 10:05 40 MG Meropenem 50 ml @ 17 mls/hr Q12HR IV 10/07/24 10:00 UNV Micafungin Sodium 100 mg/Sodium Chloride 100 ml @ 100 mls/hr DAILY IV 10/07/24 10:00 10/07/24 11:18 100 MLS/HR Meropenem 50 ml @ 16.6 mls/hr Q12HR IV 10/07/24 10:00 10/07/24 10:05 16.6 MLS/HR Fat Emulsion Intravenous 100 ml/Potassium Acetate 10 meq/ Calcium Gluconate 4.65 meq/ Magnesium Sulfate 2 meq/ Multivitamins 10 ml/Amino Acids/ Dextrose/Purified Water 1,225.5 ml @ 51 mls/hr Q24H2M IV 10/07/24 22:00 10/08/24 21:59 laboratory and microbiology Laboratory Tests 10/07/24 03:10 Test 10/07/24 03:10 Range/Units Serum Glucose 137 H 74-106 mg/dL Assessment/Plan Impression Acute hypoxemic respiratory failure Perforated viscus Septic shock Smoker Patient seen and examined in ICU Events On mechanical ventilation S/p intubation PEEP 5, FiO2 40% S/p ex lap and repair Labs and imaging reviewed Chest x-ray shows bilateral opacities ABG reviewed Management Vent support Titrate to maintain sats 90% or above Sedation for vent synchrony Continue antibiotics F/u cultures Bronchodilators Monitor renal function Monitor electrolytes Supplement as needed Pressors as needed for hemodynamic support To maintain a mean arterial pressure of 65 mmHg F/u GI DVT prophylaxis Critical care time 35 minutes Dietary Evaluation Review Comments: 1. Continue TPN to meet at least 75% estimated needs 2. Continue current POC Expected Outcomes/Goals: FU 2-3 days to meet adequate energy & protein within 7 days of NPO Plan discussed with: Patient CC Plasma Assessment Blood Product Administration S: [id number] VALENTE DEE MD October 07, 2024 20:09
[2024-10-07] MEDS: TPN PER PHARMACY IV NR (21:47)
[2024-10-08] VITALS (116 sets, daily range): BP systolic 116–200; BP diastolic 69–121; PULSE 61–114; RESP 21–26; TEMP 98.4–99.7; O2SAT 96–100
[2024-10-08 03:45] LABS: Hematocrit 30.2 % (41.0-53.0); Hemoglobin 10.1 g/dL (13.5-17.5); Mean Corpuscular Hemoglobin 29.2 pg (28.0-32.0); Mean Corpuscular Volume 87.5 fL (80.0-100.0); Nucleated Red Blood Cells % 0.1 %
[2024-10-08 04:03] LABS: Alkaline Phosphatase 99 U/L (46-116); Anion Gap 10 (5-15); BUN/Creatinine Ratio 24.8 (10.0-20.0); Carbon Dioxide 21 mmol/L (20-31); Magnesium 2.3 mg/dL (1.6-2.6); Potassium 4.0 mmol/L (3.5-5.1); Sodium 145 mmol/L (136-145)
--- NOTE | 2024-10-08 04:08 | DVH ---
CHEST RADIOGRAPH Indication: intubation Technique: Single frontal view of the chest was obtained Comparison: XY CHEST PORTABLE on DOS: 10/07/24, XY CHEST PORTABLE on DOS: 10/06/24, XY CHEST PORTABLE o n DOS: 10/05/24 IMPRESSION: Heart is stable in size. Increased opacification of the right lung base which May relate to effusio n, and/or developing worsening airspace opacity. Moderate pulmonary vascular congestion. Support maame es and tubes appear otherwise unchanged in position. No pneumothorax.
[2024-10-08 04:10] LABS: Alanine Aminotransferase 256 U/L (7-40); Albumin 2.7 g/dL (3.2-4.8); Bilirubin, Total 2.3 mg/dL (0.2-1.0); Blood Urea Nitrogen 54 mg/dL (9-23); Calcium 7.5 mg/dL (8.7-10.4); Chloride 114 mmol/L (98-107); Glucose 116 mg/dL (74-106); Total Protein 4.7 g/dL (5.7-8.2)
[2024-10-08 07:50] LABS: Base Excess -6.3 mmol/L (-2.0-3.0)
--- NOTE | 2024-10-08 09:22 | DVHPN2 ---
Subjective Patient intubated and sedated Reviewed: Care Plan, H&P, Labs, Medications Changes from previous H/P or p: No Changes General: Per HPI Objective Vitals Vital Signs Date Time Temp Pulse Resp B/P (MAP) Pulse Ox O2 Delivery O2 Flow Rate FiO2 10/08/24 08:05 67 24 151/88 (109) 99 40 10/08/24 06:00 Mechanical Ventilator+ 10/08/24 04:00 98.8 98.8 Intake/Output Intake and Output 10/08/24 07:00 Intake Total 3965.5 ml Output Total 3600 ml Balance 365.5 ml Intake Oral 0 ml IV Total 3965.5 ml Output Urine Total 2850 ml Gastric Drainage Total 600 ml Other 150 ml General Appearance: moderate distress, Other (Chemically sedated) HEENT: Atraumatic, PERRLA Lungs: Clear to auscultation, Normal air movement, Other (Mechanical ventilation, FiO2 40%) Cardiovascular: Regular rate, Normal S1, Normal S2 Abdomen: Other (Absent bowel sounds. KWAN drain x3 with serosanguineous fluid) Musculoskeletal: Normal sensory function, Normal motor function Skin: Dry, Intact, Other (Abdominal incision dry and intact, we will approximately) Psych/Mental Status: Other (Unable to assess) Medications Current Medications Medications Dose Ordered Sig/Wally Route Start Time Stop Time Status Last Admin Dose Admin Norepinephrine Bitartrate 250 ml @ 3.75 mls/hr Q24H IV 10/04/24 08:00 10/05/24 13:05 7.5 MLS/HR Fentanyl Citrate 250 ml @ 2.5 mls/hr Q24H IV 10/04/24 09:45 10/08/24 00:46 17.5 MLS/HR Ondansetron HCl 4 mg Q4HP PRN IV 10/04/24 11:45 Morphine Sulfate 2 mg Q4HPRN PRN IV 10/04/24 11:45 Nitroglycerin 0.4 mg Q5MINP PRN SL 10/04/24 11:45 Morphine Sulfate 2 mg Q30M PRN IV 10/04/24 11:45 Lorazepam 50 mg/ Sodium Chloride 50 ml @ 1 mls/hr Q24H IV 10/04/24 18:15 Cancel Midazolam HCl 50 ml @ 1 mls/hr Q24H IV 10/04/24 18:30 10/08/24 00:47 5 MLS/HR Vasopressin 20 units/Sodium Chloride 100 ml @ 12 mls/hr Q8H20M IV 10/04/24 20:30 10/06/24 22:26 12 MLS/HR Acetaminophen 650 mg Q6HPRN PRN ID 10/04/24 21:00 Amino Acids 0 ml @ 0 mls/hr PER PHARMACY IV 10/05/24 14:30 UNV Amino Acids 0 ml @ 0 mls/hr PER PHARMACY IV 10/05/24 14:30 Diagnostic Test (Pha) 1 strip Q6HR 10/05/24 18:00 10/08/24 05:40 1 STRIP Insulin Human Regular FOLLOW SLIDING SCALE Q6HR SC 10/05/24 18:00 10/06/24 23:42 2 UNITS Dextrose 50 ml UD IV 10/05/24 14:45 Sodium Chloride 1,000 ml @ 100 mls/hr Q10H IV 10/06/24 11:15 10/07/24 23:24 100 MLS/HR Pantoprazole Sodium 40 mg BID IV 10/07/24 10:00 10/07/24 21:45 40 MG Meropenem 50 ml @ 17 mls/hr Q12HR IV 10/07/24 10:00 UNV Micafungin Sodium 100 mg/Sodium Chloride 100 ml @ 100 mls/hr DAILY IV 10/07/24 10:00 10/07/24 11:18 100 MLS/HR Meropenem 50 ml @ 16.6 mls/hr Q12HR IV 10/07/24 10:00 10/07/24 21:45 16.6 MLS/HR Fat Emulsion Intravenous 100 ml/Potassium Acetate 10 meq/ Calcium Gluconate 4.65 meq/ Magnesium Sulfate 2 meq/ Multivitamins 10 ml/Amino Acids/ Dextrose/Purified Water 1,225.5 ml @ 51 mls/hr Q24H2M IV 10/07/24 22:00 10/08/24 21:59 10/07/24 21:47 51 MLS/HR Laboratory Results Laboratory Tests 10/08/24 03:00 Chemistry Test 10/08/24 03:00 Albumin 2.7 g/dL (3.2-4.8) L Calcium Level 7.5 mg/dL (8.7-10.4) L Magnesium Level 2.3 mg/dL (1.6-2.6) Phosphorus Level 2.2 mg/dL (2.4-5.1) L Total Protein 4.7 g/dL (5.7-8.2) L LFT Test 10/08/24 03:00 Alanine Aminotransferase (ALT) 256 U/L (7-40) H Alkaline Phosphatase 99 U/L (46-116) Aspartate Amino Transferase (AST) 108 U/L (13-40) H Total Bilirubin 2.3 mg/dL (0.2-1.0) H Urinalysis Test 10/05/24 15:05 Urine Color Light-yellow (Yellow) Urine Clarity Hazy (Clear) H Urine pH 5.5 (5.0-9.0) Urine Specific [place] 1.018 (1.001-1.035) Urine Protein 1+ (Negative) H Urine Ketones Negative (Negative) Urine Blood 3+ /uL (Negative) H Urine Nitrite Negative (Negative) Urine Bilirubin Negative (Negative) Urine Urobilinogen Normal mg/dL (Negative) Urine Leukocyte Esterase Negative /uL (Negative) Urine RBC 1 /hpf (0 - 3) Urine Microscopic WBC 9 /HPF (0-3) H Urine Squamous Epithelial Cells Few /hpf (<5) Urine Bacteria Few /hpf (None Seen) H Urine Mucus Few (None Seen) Urine Creatinine 39.22 mg/dL (30.0-125.0) Urine Sodium 62 mmol/L (40-220) Urine Glucose Trace mg/dL (Normal) Urine Total Protein 85.0 mg/dL (1-14) H Blood Gas Results Test 10/08/24 06:46 Arterial Blood pH 7.368 (7.350-7.450) FiO2 % 40.0 Microbiology Microbiology Date/Time Source Procedure Growth Status 10/05/24 15:05 Voided Urine Urine Culture - Final Complete 10/04/24 17:10 Nose MRSA Screen - Final Complete 10/04/24 07:01 Blood Blood Culture - Preliminary NO GROWTH AFTER 72 HOURS OF INCUBATION. Resulted Labs and/or images reviewed: Labs reviewed by me, Image(s) reviewed by me Assessment/Plan Assessment/Plan Impression: -severe septic shock -pneumoperitoneum secondary to perforated gastric ulcer -acute kidney injury, hemodynamically mediated, probable VMN -acute hypoxic respiratory failure -shock liver -nicotine dependence -history of CVA Plan: Events: Patient now hypertensive. Improvement with leukocytosis. Renal function improving elevated LFTs. Continue to monitor. Recommend removal of lipids in TPN -continue antibiotic therapy to Merrem panel and micafungin -nephrology consultation: Recommendations appreciated, patient's IV fluids increase -TPN -vasopressor therapy: Used to keep map greater than 65 mmHg, currently off -labetalol IV p.r.n. for hypertension -Protonix 40 mg IV twice a day -further recommendations per surgical consultation -continue current sedation -repeat labs, chest x-ray, ABG in a.m. Critical care time spent with patient discussing and formulating plan of care: 40 minutes. This does not include time spent performing procedures. This medical document was created using an electronic medical record system with [employer] dictation system. Although this document has been carefully reviewed, there may still be some phonetic and typographical errors. These areas are purely typographical due to imperfections of the software programs, and do not reflect any compromise in the patient's medical care. Plan discussed with: Patient, Other (RN) My Orders Orders - CHEYENNE PIKE NP Procedure Category Date Status Time Meropenem 1gm Ivpb PHA 10/07/24 In Process (Merrem 1gm/ Ns) 10:00 Labetalol Hcl PHA 10/08/24 Verified (Labetalol Hcl) 09:30 Date of Service: October 08, 2024 Billing Provider: CHEYENNE PIKE NP Common Visit Codes: [id number] CARE 30-74 MIN CHEYENNE PIKE NP October 08, 2024 09:22
--- NOTE | 2024-10-08 10:51 | DVHPN2 ---
Progress Note - Dictate Date Seen: October 08, 2024 Medical Necessity Reason Pt with a Central, PICC or Fol: Yes The following are medically ne: Gómez Catheter Reason for gómez catheter: Strict I&O vital signs Vital Sign Date Time Temp Pulse Resp B/P (MAP) Pulse Ox O2 Delivery O2 Flow Rate FiO2 10/08/24 10:02 85 24 146/84 (104) 98 40 10/08/24 08:00 Mechanical Ventilator+ 10/08/24 08:00 99.3 99.3 Total Intake and Output 10/07/24 10/07/24 10/08/24 15:00 23:00 07:00 Intake Total 1356.5 ml 1384.0 ml 1225.0 ml Output Total 1670 ml 1930 ml Balance 1356.5 ml -286.0 ml -705.0 ml medications Current Medications Medications Dose Ordered Sig/Wally Route Start Time Stop Time Status Last Admin Dose Admin Norepinephrine Bitartrate 250 ml @ 3.75 mls/hr Q24H IV 10/04/24 08:00 10/05/24 13:05 7.5 MLS/HR Fentanyl Citrate 250 ml @ 2.5 mls/hr Q24H IV 10/04/24 09:45 10/08/24 00:46 17.5 MLS/HR Ondansetron HCl 4 mg Q4HP PRN IV 10/04/24 11:45 Morphine Sulfate 2 mg Q4HPRN PRN IV 10/04/24 11:45 Nitroglycerin 0.4 mg Q5MINP PRN SL 10/04/24 11:45 Morphine Sulfate 2 mg Q30M PRN IV 10/04/24 11:45 Lorazepam 50 mg/ Sodium Chloride 50 ml @ 1 mls/hr Q24H IV 10/04/24 18:15 Cancel Midazolam HCl 50 ml @ 1 mls/hr Q24H IV 10/04/24 18:30 10/08/24 09:21 7 MLS/HR Vasopressin 20 units/Sodium Chloride 100 ml @ 12 mls/hr Q8H20M IV 10/04/24 20:30 10/06/24 22:26 12 MLS/HR Acetaminophen 650 mg Q6HPRN PRN SD 10/04/24 21:00 Amino Acids 0 ml @ 0 mls/hr PER PHARMACY IV 10/05/24 14:30 UNV Amino Acids 0 ml @ 0 mls/hr PER PHARMACY IV 10/05/24 14:30 Diagnostic Test (Pha) 1 strip Q6HR 10/05/24 18:00 10/08/24 05:40 1 STRIP Insulin Human Regular FOLLOW SLIDING SCALE Q6HR SC 10/05/24 18:00 10/06/24 23:42 2 UNITS Dextrose 50 ml UD IV 10/05/24 14:45 Sodium Chloride 1,000 ml @ 100 mls/hr Q10H IV 10/06/24 11:15 10/08/24 09:24 100 MLS/HR Pantoprazole Sodium 40 mg BID IV 10/07/24 10:00 10/08/24 10:14 40 MG Meropenem 50 ml @ 17 mls/hr Q12HR IV 10/07/24 10:00 UNV Micafungin Sodium 100 mg/Sodium Chloride 100 ml @ 100 mls/hr DAILY IV 10/07/24 10:00 10/08/24 09:43 100 MLS/HR Meropenem 50 ml @ 16.6 mls/hr Q12HR IV 10/07/24 10:00 10/07/24 21:45 16.6 MLS/HR Fat Emulsion Intravenous 100 ml/Potassium Acetate 10 meq/ Calcium Gluconate 4.65 meq/ Magnesium Sulfate 2 meq/ Multivitamins 10 ml/Amino Acids/ Dextrose/Purified Water 1,225.5 ml @ 51 mls/hr Q24H2M IV 10/07/24 22:00 10/08/24 21:59 10/07/24 21:47 51 MLS/HR Labetalol HCl 10 mg Q2HPRN PRN IV 10/08/24 09:30 laboratory and microbiology Laboratory Tests 10/08/24 03:00 Test 10/08/24 03:00 Range/Units Serum Glucose 116 H 74-106 mg/dL Assessment/Plan Impression Acute hypoxemic respiratory failure Perforated viscus Septic shock Smoker Patient seen and examined in ICU Events On mechanical ventilation S/p intubation PEEP 5, FiO2 40% S/p ex lap and repair Labs and imaging reviewed Chest x-ray shows bilateral opacities ABG reviewed Management Vent support Titrate to maintain sats 90% or above Sedation holiday and weaning off the vent if ok with sx Continue antibiotics F/u cultures Bronchodilators Monitor renal function Monitor electrolytes Supplement as needed Pressors as needed for hemodynamic support To maintain a mean arterial pressure of 65 mmHg F/u GI DVT prophylaxis Critical care time 35 minutes Dietary Evaluation Review Comments: 1. Continue TPN to meet at least 75% estimated needs 2. Continue current POC Expected Outcomes/Goals: FU 2-3 days to meet adequate energy & protein within 7 days of NPO Plan discussed with: Other (rn) CC Plasma Assessment Blood Product Administration S: [id number] VALENTE DEE MD October 08, 2024 10:51
--- NOTE | 2024-10-08 11:17 | DVHPN2 ---
Progress Note Date Seen: October 08, 2024 Medical Necessity Reason Pt with a Central, PICC or Fol: Yes The following are medically ne: Gómez Catheter Reason for gómez catheter: Strict I&O Subjective Review of Systems: RESPIRATORY:Abnormal Other Systems: Patient seen and examined by myself today in follow-up, patient remained intubated on ventilator Objective vital signs Vital Sign Date Time Temp Pulse Resp B/P (MAP) Pulse Ox O2 Delivery O2 Flow Rate FiO2 10/08/24 10:02 85 24 146/84 (104) 98 40 10/08/24 08:00 Mechanical Ventilator+ 10/08/24 08:00 99.3 99.3 Total Intake and Output 10/07/24 10/07/24 10/08/24 15:00 23:00 07:00 Intake Total 1356.5 ml 1384.0 ml 1225.0 ml Output Total 1670 ml 1930 ml Balance 1356.5 ml -286.0 ml -705.0 ml medications Current Medications Medications Dose Ordered Sig/Wally Route Start Time Stop Time Status Last Admin Dose Admin Norepinephrine Bitartrate 250 ml @ 3.75 mls/hr Q24H IV 10/04/24 08:00 10/05/24 13:05 7.5 MLS/HR Fentanyl Citrate 250 ml @ 2.5 mls/hr Q24H IV 10/04/24 09:45 10/08/24 00:46 17.5 MLS/HR Ondansetron HCl 4 mg Q4HP PRN IV 10/04/24 11:45 Morphine Sulfate 2 mg Q4HPRN PRN IV 10/04/24 11:45 Nitroglycerin 0.4 mg Q5MINP PRN SL 10/04/24 11:45 Morphine Sulfate 2 mg Q30M PRN IV 10/04/24 11:45 Lorazepam 50 mg/ Sodium Chloride 50 ml @ 1 mls/hr Q24H IV 10/04/24 18:15 Cancel Midazolam HCl 50 ml @ 1 mls/hr Q24H IV 10/04/24 18:30 10/08/24 09:21 7 MLS/HR Vasopressin 20 units/Sodium Chloride 100 ml @ 12 mls/hr Q8H20M IV 10/04/24 20:30 10/06/24 22:26 12 MLS/HR Acetaminophen 650 mg Q6HPRN PRN [place] 10/04/24 21:00 Amino Acids 0 ml @ 0 mls/hr PER PHARMACY IV 10/05/24 14:30 UNV Amino Acids 0 ml @ 0 mls/hr PER PHARMACY IV 10/05/24 14:30 Diagnostic Test (Pha) 1 strip Q6HR 10/05/24 18:00 10/08/24 05:40 1 STRIP Insulin Human Regular FOLLOW SLIDING SCALE Q6HR SC 10/05/24 18:00 10/06/24 23:42 2 UNITS Dextrose 50 ml UD IV 10/05/24 14:45 Sodium Chloride 1,000 ml @ 100 mls/hr Q10H IV 10/06/24 11:15 10/08/24 09:24 100 MLS/HR Pantoprazole Sodium 40 mg BID IV 10/07/24 10:00 10/08/24 10:14 40 MG Meropenem 50 ml @ 17 mls/hr Q12HR IV 10/07/24 10:00 UNV Micafungin Sodium 100 mg/Sodium Chloride 100 ml @ 100 mls/hr DAILY IV 10/07/24 10:00 10/08/24 09:43 100 MLS/HR Meropenem 50 ml @ 16.6 mls/hr Q12HR IV 10/07/24 10:00 10/08/24 10:56 16.6 MLS/HR Fat Emulsion Intravenous 100 ml/Potassium Acetate 10 meq/ Calcium Gluconate 4.65 meq/ Magnesium Sulfate 2 meq/ Multivitamins 10 ml/Amino Acids/ Dextrose/Purified Water 1,225.5 ml @ 51 mls/hr Q24H2M IV 10/07/24 22:00 10/08/24 21:59 10/07/24 21:47 51 MLS/HR Labetalol HCl 10 mg Q2HPRN PRN IV 10/08/24 09:30 Fat Emulsion Intravenous 150 ml/Potassium Acetate 10 meq/ Potassium Phosphate 10 meq/ Calcium Gluconate 4.65 meq/ Magnesium Sulfate 4 meq/ Multivitamins 10 ml/Amino Acids/ Dextrose/Purified Water 1,378.2727 ml @ 57 mls/hr [id number] IV 10/08/24 22:00 10/09/24 21:59 Examination: LUNGS:Normal, CVS:Normal, MSK:Normal laboratory and microbiology Laboratory Tests 10/08/24 03:00 Test 5/21/25 03:00 Range/Units Serum Glucose 116 H 74-106 mg/dL Microbiology Date/Time Source Procedure Growth Status 10/05/24 15:05 Voided Urine Urine Culture - Final Complete 10/04/24 17:10 Nose MRSA Screen - Final Complete 10/04/24 07:01 Blood Blood Culture - Preliminary NO GROWTH AFTER 72 HOURS OF INCUBATION. Resulted Problem List/Assessment/Plan Problem List/Assessment/Plan Acute kidney injury likely ATN, FeNa ,> 2% Acute respiratory failure, patient intubated on ventilator Hemodynamic shock acute blood loss anemia Perforated gastric ulcer status post surgery 10/04 Hyponatremia resolved Pneumonia Sepsis Hypomagnesemia Acute blood loss anemia status post PRBC Recommendations Kidney function slightly improving today Increased urine output Gómez catheter Strict I&Os I agree with IV fluid hydration IV antibiotic Electrolytes replacement Magnesium sulfate IV piggyback We will continue to follow up Plan discussed with: Other (nurse) Dietary Evaluation Review Comments: 1. Continue TPN to meet at least 75% estimated needs 2. Continue current POC Expected Outcomes/Goals: FU 2-3 days to meet adequate energy & protein within 7 days of NPO CC Plasma Assessment Blood Product Administration S: [id number] MILADY ANDERSON MD October 08, 2024 11:17
[2024-10-08] MEDS: SOD CHL 0.45% 1,000 ML IV SCH (11:42)
[2024-10-08] MEDS: SODIUM PHOSPHATES 20 MEQ in SODIUM CHL 0.9% 100 ML IV ONE (12:51)
[2024-10-08] MEDS: TPN PER PHARMACY IV NR (21:20)
[2024-10-09] VITALS (106 sets, daily range): BP systolic 114–191; BP diastolic 61–91; PULSE 63–106; RESP 20–27; TEMP 99.5–100.2; O2SAT 98–100
[2024-10-09 04:26] LABS: Hematocrit 33.1 % (41.0-53.0); Hemoglobin 11.0 g/dL (13.5-17.5); Mean Corpuscular Hemoglobin 28.8 pg (28.0-32.0); Mean Corpuscular Volume 87.3 fL (80.0-100.0); Nucleated Red Blood Cells % 0.0 %
[2024-10-09 04:41] LABS: Anion Gap 9 (5-15); BUN/Creatinine Ratio 23.3 (10.0-20.0); Carbon Dioxide 22 mmol/L (20-31); Magnesium 2.0 mg/dL (1.6-2.6); Potassium 3.9 mmol/L (3.5-5.1); Sodium 143 mmol/L (136-145)
[2024-10-09 04:58] LABS: Alanine Aminotransferase 188 U/L (7-40); Albumin 2.7 g/dL (3.2-4.8); Alkaline Phosphatase 118 U/L (46-116); Bilirubin, Total 3.0 mg/dL (0.2-1.0); Blood Urea Nitrogen 41 mg/dL (9-23); Calcium 7.7 mg/dL (8.7-10.4); Chloride 112 mmol/L (98-107); Glucose 124 mg/dL (74-106); Total Protein 4.7 g/dL (5.7-8.2)
--- NOTE | 2024-10-09 05:37 | DVH ---
EXAM: XR Chest, 1 View CLINICAL INDICATION: intubation TECHNIQUE: Frontal view of the chest. COMPARISON: XY CHEST PORTABLE on DOS: 10/08/24, XY CHEST PORTABLE on DOS: 10/07/24, XY CHEST PORTABLE on DOS: 10/06/24, XY CHEST PORTABLE on DOS: 10/05/24, XY CHEST PORTABLE on DOS: 10/04/24 FINDINGS: LUNGS AND PLEURAL SPACES: Pulmonary congestion and edema. Pneumonia cannot be excluded. Bilateral pleural effusions. No pneumothorax. HEART: Unremarkable. No cardiomegaly. MEDIASTINUM: Unremarkable. Normal mediastinal contour. BONES/JOINTS: Unremarkable. No acute fracture. TUBES, LINES AND DEVICES: Right internal jugular central venous catheter tip in the superior vena c rosaline. The endotracheal tube (ETT) is in satisfactory position. Enteric tube tip in the stomach. OTHER FINDINGS: . . IMPRESSION: 1. Pulmonary congestion and edema. Pneumonia cannot be excluded. 2. Bilateral pleural effusions.
[2024-10-09 08:24] LABS: Base Excess -3.9 mmol/L (-2.0-3.0)
--- NOTE | 2024-10-09 09:22 | DVHPN2 ---
Progress Note Date Seen: October 09, 2024 Medical Necessity Reason Pt with a Central, PICC or Fol: Yes The following are medically ne: Gómez Catheter Reason for gómez catheter: Strict I&O Subjective Review of Systems: RESPIRATORY:Abnormal Other Systems: Patient seen and examined by myself today in follow-up, patient remained intubated on ventilator Lola Objective vital signs Vital Sign Date Time Temp Pulse Resp B/P (MAP) Pulse Ox O2 Delivery O2 Flow Rate FiO2 10/09/24 08:58 141/72 10/09/24 06:15 73 24 100 10/09/24 06:00 40 10/09/24 06:00 Mechanical Ventilator+ 10/09/24 04:00 99.5 99.5 Total Intake and Output 10/08/24 10/08/24 10/09/24 15:00 23:00 07:00 Intake Total 1499.0 ml 1205.0 ml 1190.5 ml Output Total 1930 ml 1710 ml Balance 1499.0 ml -725.0 ml -519.5 ml medications Current Medications Medications Dose Ordered Sig/Wally Route Start Time Stop Time Status Last Admin Dose Admin Norepinephrine Bitartrate 250 ml @ 3.75 mls/hr Q24H IV 10/04/24 08:00 10/05/24 13:05 7.5 MLS/HR Fentanyl Citrate 250 ml @ 2.5 mls/hr Q24H IV 10/04/24 09:45 10/09/24 08:58 25 MLS/HR Ondansetron HCl 4 mg Q4HP PRN IV 10/04/24 11:45 Morphine Sulfate 2 mg Q4HPRN PRN IV 10/04/24 11:45 Nitroglycerin 0.4 mg Q5MINP PRN SL 10/04/24 11:45 Morphine Sulfate 2 mg Q30M PRN IV 10/04/24 11:45 Lorazepam 50 mg/ Sodium Chloride 50 ml @ 1 mls/hr Q24H IV 10/04/24 18:15 Cancel Midazolam HCl 50 ml @ 1 mls/hr Q24H IV 10/04/24 18:30 10/09/24 08:55 7 MLS/HR Vasopressin 20 units/Sodium Chloride 100 ml @ 12 mls/hr Q8H20M IV 10/04/24 20:30 10/06/24 22:26 12 MLS/HR Acetaminophen 650 mg Q6HPRN PRN NV 10/04/24 21:00 Amino Acids 0 ml @ 0 mls/hr PER PHARMACY IV 10/05/24 14:30 UNV Amino Acids 0 ml @ 0 mls/hr PER PHARMACY IV 10/05/24 14:30 Diagnostic Test (Pha) 1 strip Q6HR 10/05/24 18:00 10/09/24 05:27 1 STRIP Insulin Human Regular FOLLOW SLIDING SCALE Q6HR SC 10/05/24 18:00 10/06/24 23:42 2 UNITS Dextrose 50 ml UD IV 10/05/24 14:45 Pantoprazole Sodium 40 mg BID IV 10/07/24 10:00 10/08/24 21:30 40 MG Meropenem 50 ml @ 17 mls/hr Q12HR IV 10/07/24 10:00 UNV Micafungin Sodium 100 mg/Sodium Chloride 100 ml @ 100 mls/hr DAILY IV 10/07/24 10:00 10/08/24 09:43 100 MLS/HR Meropenem 50 ml @ 16.6 mls/hr Q12HR IV 10/07/24 10:00 10/08/24 21:30 16.6 MLS/HR Labetalol HCl 10 mg Q2HPRN PRN IV 10/08/24 09:30 Fat Emulsion Intravenous 150 ml/Potassium Acetate 10 meq/ Potassium Phosphate 10 meq/ Calcium Gluconate 4.65 meq/ Magnesium Sulfate 4 meq/ Multivitamins 10 ml/Amino Acids/ Dextrose/Purified Water 1,378.2727 ml @ 57 mls/hr [id number] IV 10/08/24 22:00 10/09/24 21:59 10/08/24 21:20 57 MLS/HR Sodium Chloride 1,000 ml @ 75 mls/hr [id number] IV 10/08/24 11:15 10/09/24 05:45 75 MLS/HR Examination: LUNGS:Normal, CVS:Normal, MSK:Normal laboratory and microbiology Laboratory Tests 10/09/24 03:15 Test 10/09/24 03:15 Range/Units Serum Glucose 124 H 74-106 mg/dL Microbiology Date/Time Source Procedure Growth Status 10/05/24 15:05 Voided Urine Urine Culture - Final Complete 10/04/24 17:10 Nose MRSA Screen - Final Complete 10/04/24 07:01 Blood Blood Culture - Final NO GROWTH AFTER 5 DAYS OF INCUBATION. Complete Problem List/Assessment/Plan Problem List/Assessment/Plan Acute kidney injury likely ATN, FeNa ,> 2% Acute respiratory failure, patient intubated on ventilator Hemodynamic shock acute blood loss anemia Perforated gastric ulcer status post surgery 10/04 Hyponatremia resolved Pneumonia Sepsis Hypomagnesemia Acute blood loss anemia status post PRBC Recommendations Kidney function slowly improving Increased urine output Gómez catheter Strict I&Os I agree with IV fluid hydration IV antibiotic Electrolytes replacement Magnesium sulfate IV piggyback We will continue to follow up Plan discussed with: Other (Nurse) My Orders My Orders Orders - MILADY ANDERSON MD Procedure Category Date Status Time Sod Chl 0.45% (Sodium PHA 10/08/24 In Process Chloride 0.45% Via 11:15 Dietary Evaluation Review Comments: 1. Continue TPN to meet at least 75% estimated needs 2. Continue current POC Expected Outcomes/Goals: FU 2-3 days to meet adequate energy & protein within 7 days of NPO CC Plasma Assessment Blood Product Administration S: [id number] MILADY ANDERSON MD October 09, 2024 09:22
--- NOTE | 2024-10-09 10:03 | DVHPN2 ---
Subjective Patient intubated and sedated Reviewed: Care Plan, H&P, Labs, Medications Changes from previous H/P or p: No Changes General: Per HPI Objective Vitals Vital Signs Date Time Temp Pulse Resp B/P (MAP) Pulse Ox O2 Delivery O2 Flow Rate FiO2 10/09/24 08:58 141/72 10/09/24 08:35 80 26 100 40 10/09/24 06:00 Mechanical Ventilator+ 10/09/24 04:00 99.5 99.5 Intake/Output Intake and Output 10/09/24 07:00 Intake Total 3894.5 ml Output Total 3640 ml Balance 254.5 ml Intake Oral 0 ml IV Total 3894.5 ml Output Urine Total 3150 ml Gastric Drainage Total 200 ml Drainage Total 130 ml Other 160 ml General Appearance: moderate distress, Other (Chemically sedated) HEENT: Atraumatic, PERRLA Lungs: Clear to auscultation, Normal air movement, Other (Mechanical ventilation, FiO2 40%) Cardiovascular: Regular rate, Normal S1, Normal S2 Abdomen: Other (Absent bowel sounds. KWAN drain x3 with serosanguineous fluid) Musculoskeletal: Normal sensory function, Normal motor function Skin: Dry, Intact, Other (Abdominal incision dry and intact, we will approximately) Psych/Mental Status: Other (Unable to assess) Medications Current Medications Medications Dose Ordered Sig/Wally Route Start Time Stop Time Status Last Admin Dose Admin Norepinephrine Bitartrate 250 ml @ 3.75 mls/hr Q24H IV 10/04/24 08:00 10/05/24 13:05 7.5 MLS/HR Fentanyl Citrate 250 ml @ 2.5 mls/hr Q24H IV 10/04/24 09:45 10/09/24 08:58 25 MLS/HR Ondansetron HCl 4 mg Q4HP PRN IV 10/04/24 11:45 Morphine Sulfate 2 mg Q4HPRN PRN IV 10/04/24 11:45 Nitroglycerin 0.4 mg Q5MINP PRN SL 10/04/24 11:45 Morphine Sulfate 2 mg Q30M PRN IV 10/04/24 11:45 Lorazepam 50 mg/ Sodium Chloride 50 ml @ 1 mls/hr Q24H IV 10/04/24 18:15 Cancel Midazolam HCl 50 ml @ 1 mls/hr Q24H IV 10/04/24 18:30 10/09/24 08:55 7 MLS/HR Vasopressin 20 units/Sodium Chloride 100 ml @ 12 mls/hr Q8H20M IV 10/04/24 20:30 10/06/24 22:26 12 MLS/HR Acetaminophen 650 mg Q6HPRN PRN [place] 10/04/24 21:00 Amino Acids 0 ml @ 0 mls/hr PER PHARMACY IV 10/05/24 14:30 UNV Amino Acids 0 ml @ 0 mls/hr PER PHARMACY IV 10/05/24 14:30 Diagnostic Test (Pha) 1 strip Q6HR 10/05/24 18:00 10/09/24 05:27 1 STRIP Insulin Human Regular FOLLOW SLIDING SCALE Q6HR SC 10/05/24 18:00 10/06/24 23:42 2 UNITS Dextrose 50 ml UD IV 10/05/24 14:45 Pantoprazole Sodium 40 mg BID IV 10/07/24 10:00 10/08/24 21:30 40 MG Meropenem 50 ml @ 17 mls/hr Q12HR IV 10/07/24 10:00 UNV Micafungin Sodium 100 mg/Sodium Chloride 100 ml @ 100 mls/hr DAILY IV 10/07/24 10:00 10/08/24 09:43 100 MLS/HR Meropenem 50 ml @ 16.6 mls/hr Q12HR IV 10/07/24 10:00 10/08/24 21:30 16.6 MLS/HR Labetalol HCl 10 mg Q2HPRN PRN IV 10/08/24 09:30 Fat Emulsion Intravenous 150 ml/Potassium Acetate 10 meq/ Potassium Phosphate 10 meq/ Calcium Gluconate 4.65 meq/ Magnesium Sulfate 4 meq/ Multivitamins 10 ml/Amino Acids/ Dextrose/Purified Water 1,378.2727 ml @ 57 mls/hr [id number] IV 10/08/24 22:00 10/09/24 21:59 10/08/24 21:20 57 MLS/HR Sodium Chloride 1,000 ml @ 75 mls/hr [id number] IV 10/08/24 11:15 10/09/24 05:45 75 MLS/HR Laboratory Results Laboratory Tests 10/09/24 03:15 Chemistry Test 10/09/24 03:15 Albumin 2.7 g/dL (3.2-4.8) L Calcium Level 7.7 mg/dL (8.7-10.4) L Magnesium Level 2.0 mg/dL (1.6-2.6) Phosphorus Level 2.8 mg/dL (2.4-5.1) Total Protein 4.7 g/dL (5.7-8.2) L LFT Test 10/09/24 03:15 Alanine Aminotransferase (ALT) 188 U/L (7-40) H Alkaline Phosphatase 118 U/L (46-116) H Aspartate Amino Transferase (AST) 63 U/L (13-40) H Total Bilirubin 3.0 mg/dL (0.2-1.0) H Urinalysis Test 10/05/24 15:05 Urine Color Light-yellow (Yellow) Urine Clarity Hazy (Clear) H Urine pH 5.5 (5.0-9.0) Urine Specific [place] 1.018 (1.001-1.035) Urine Protein 1+ (Negative) H Urine Ketones Negative (Negative) Urine Blood 3+ /uL (Negative) H Urine Nitrite Negative (Negative) Urine Bilirubin Negative (Negative) Urine Urobilinogen Normal mg/dL (Negative) Urine Leukocyte Esterase Negative /uL (Negative) Urine RBC 1 /hpf (0 - 3) Urine Microscopic WBC 9 /HPF (0-3) H Urine Squamous Epithelial Cells Few /hpf (<5) Urine Bacteria Few /hpf (None Seen) H Urine Mucus Few (None Seen) Urine Creatinine 39.22 mg/dL (30.0-125.0) Urine Sodium 62 mmol/L (40-220) Urine Glucose Trace mg/dL (Normal) Urine Total Protein 85.0 mg/dL (1-14) H Blood Gas Results Test 10/09/24 08:17 Arterial Blood pH 7.373 (7.350-7.450) FiO2 % 40.0 Microbiology Microbiology Date/Time Source Procedure Growth Status 10/05/24 15:05 Voided Urine Urine Culture - Final Complete 10/04/24 17:10 Nose MRSA Screen - Final Complete 10/04/24 07:01 Blood Blood Culture - Final NO GROWTH AFTER 5 DAYS OF INCUBATION. Complete Labs and/or images reviewed: Labs reviewed by me, Image(s) reviewed by me Assessment/Plan Assessment/Plan Impression: -severe septic shock -pneumoperitoneum secondary to perforated gastric ulcer -acute kidney injury, hemodynamically mediated, probable VMN -acute hypoxic respiratory failure -shock liver -nicotine dependence -history of CVA Plan: Events: Patient hemodynamically stable. Minimal drainage from OG tube. OG drainage now more bilious then coffee-ground -liver ultrasound given elevated LFTs, trending up. -begin weaning sedation, spontaneous breathing trial per pulmonology -continue antibiotic therapy to Merrem panel and micafungin -TPN -labetalol IV p.r.n. for hypertension -Protonix 40 mg IV twice a day -further recommendations per surgical consultation -continue current sedation -repeat labs, chest x-ray, ABG in a.m. Critical care time spent with patient discussing and formulating plan of care: 40 minutes. This does not include time spent performing procedures. This medical document was created using an electronic medical record system with [email or web address] dictation system. Although this document has been carefully reviewed, there may still be some phonetic and typographical errors. These areas are purely typographical due to imperfections of the software programs, and do not reflect any compromise in the patient's medical care. Plan discussed with: Patient, Other (RN) My Orders Orders - CHEYENNE PIKE NP Procedure Category Date Status Time LIVER US 10/09/24 Taken 08:37 Communication Order ORDERS 10/09/24 Transmitted 09:51 Date of Service: October 09, 2024 Billing Provider: CHEYENNE PIKE NP Common Visit Codes: [id number] CARE 30-74 MIN CHEYENNE PIKE NP October 09, 2024 10:03
--- NOTE | 2024-10-09 10:21 | DVH ---
INDICATION: increased lfts TECHNIQUE: Multiple real-time sonographic images were obtained of the right upper quadrant. COMPARISON: None FINDINGS: The liver demonstrates homogenous echotexture without focal mass lesions. The liver measure s 14 cm. There is extrahepatic biliary ductal dilatation The common duct measures 10 mm. Partially visualized bilateral pleural effusion. Gallbladder sludge. The gallbladder wall measures 5 mm and is thickened. Sonographic zimmer's sign i s reportedly negative The right kidney measures 8 cm. The right kidney is small in size.. The echogenicity is normal. Ther e is no hydronephrosis. The pancreas is not well visualized due to overlying bowel gas. IMPRESSION: Gallbladder sludge and nonspecific gallbladder wall thickening and pericholecystic edema. Correlate c linically for acute cholecystitis. Extrahepatic biliary ductal dilatation. Correlate with MRCP if clinically indicated. Partially visualized bilateral small pleural effusions.
--- NOTE | 2024-10-09 15:30 | DVH ---
INDICATION: NG tube placement TECHNIQUE: Frontal view of the chest. COMPARISON: XY CHEST PORTABLE on DOS: 10/09/24, XY CHEST PORTABLE on DOS: 10/08/24, XY CHEST PORTABLE o n DOS: 10/07/24, XY CHEST PORTABLE on DOS: 10/06/24, XY CHEST PORTABLE on DOS: 10/05/24 FINDINGS: Findings:. The heart and mediastinal contours are grossly unremarkable. The lungs demonstrate inter stitial pulmonary edema with bilateral pleural effusion right greater than the left. The support line s including endotracheal tube nasogastric tube and right internal jugular CVP catheter to be in [employer] position.. The bony structures of the chest are intact without fracture. IMPRESSION: 1. Interstitial pulmonary edema 2. [id number] right-sided pleural effusion and small left-sided pleural effusion 3. Support lines are in satisfactory position..
--- NOTE | 2024-10-09 17:34 | DVHPN2 ---
Subjective Date Seen: October 09, 2024 Post op day Post op day: 5 Patient reports: Other (Intubated , sedation) Objective Vitals Vital Sign Date Time Temp Pulse Resp B/P (MAP) Pulse Ox O2 Delivery O2 Flow Rate FiO2 10/09/24 16:45 100.0 71 24 147/75 (99) 100 100.0 10/09/24 16:13 40 10/09/24 16:00 Mechanical Ventilator+ Total Intake and Output 10/08/24 10/08/24 10/09/24 15:00 23:00 07:00 Intake Total 1499.0 ml 1205.0 ml 1354.5 ml Output Total 1930 ml 1710 ml Balance 1499.0 ml -725.0 ml -355.5 ml Medications Current Medications Medications Dose Ordered Sig/Wally Route Start Time Stop Time Status Last Admin Dose Admin Norepinephrine Bitartrate 250 ml @ 3.75 mls/hr Q24H IV 10/04/24 08:00 10/05/24 13:05 7.5 MLS/HR Fentanyl Citrate 250 ml @ 2.5 mls/hr Q24H IV 10/04/24 09:45 10/09/24 08:58 25 MLS/HR Ondansetron HCl 4 mg Q4HP PRN IV 10/04/24 11:45 Morphine Sulfate 2 mg Q4HPRN PRN IV 10/04/24 11:45 Nitroglycerin 0.4 mg Q5MINP PRN SL 10/04/24 11:45 Morphine Sulfate 2 mg Q30M PRN IV 10/04/24 11:45 Lorazepam 50 mg/ Sodium Chloride 50 ml @ 1 mls/hr Q24H IV 10/04/24 18:15 Cancel Midazolam HCl 50 ml @ 1 mls/hr Q24H IV 10/04/24 18:30 10/09/24 16:29 7 MLS/HR Vasopressin 20 units/Sodium Chloride 100 ml @ 12 mls/hr Q8H20M IV 10/04/24 20:30 10/06/24 22:26 12 MLS/HR Acetaminophen 650 mg Q6HPRN PRN [place] 10/04/24 21:00 Amino Acids 0 ml @ 0 mls/hr PER PHARMACY IV 10/05/24 14:30 UNV Amino Acids 0 ml @ 0 mls/hr PER PHARMACY IV 10/05/24 14:30 Diagnostic Test (Pha) 1 strip Q6HR 10/05/24 18:00 10/09/24 12:00 1 STRIP Insulin Human Regular FOLLOW SLIDING SCALE Q6HR SC 10/05/24 18:00 10/06/24 23:42 2 UNITS Dextrose 50 ml UD IV 10/05/24 14:45 Pantoprazole Sodium 40 mg BID IV 10/07/24 10:00 10/09/24 10:26 40 MG Meropenem 50 ml @ 17 mls/hr Q12HR IV 10/07/24 10:00 UNV Micafungin Sodium 100 mg/Sodium Chloride 100 ml @ 100 mls/hr DAILY IV 10/07/24 10:00 10/09/24 10:26 100 MLS/HR Meropenem 50 ml @ 16.6 mls/hr Q12HR IV 10/07/24 10:00 10/09/24 10:25 16.6 MLS/HR Labetalol HCl 10 mg Q2HPRN PRN IV 10/08/24 09:30 Fat Emulsion Intravenous 150 ml/Potassium Acetate 10 meq/ Potassium Phosphate 10 meq/ Calcium Gluconate 4.65 meq/ Magnesium Sulfate 4 meq/ Multivitamins 10 ml/Amino Acids/ Dextrose/Purified Water 1,378.2727 ml @ 57 mls/hr [id number] IV 10/08/24 22:00 10/09/24 21:59 10/08/24 21:20 57 MLS/HR Sodium Chloride 1,000 ml @ 75 mls/hr [id number] IV 10/08/24 11:15 10/09/24 05:45 75 MLS/HR Fat Emulsion Intravenous 200 ml/Potassium Acetate 20 meq/ Potassium Phosphate 10 meq/ Calcium Gluconate 4.65 meq/ Magnesium Sulfate 6 meq/ Multivitamins 10 ml/Amino Acids/ Dextrose/Purified Water 1,533.7727 ml @ 63 mls/hr [id number] IV 10/09/24 22:00 10/10/24 21:59 General: Other (Intubated) Neck: Normal, Supple Lungs: Normal, Normal breath sounds, Lungs clear Cardiovascular: Normal, Regular rate and rhythm Abdominal: Soft, No distension, Other (KWAN drains serous fluid) Labs and Microbiology Laboratory Tests 10/09/24 03:15 Test 10/09/24 03:15 Range/Units Serum Glucose 124 H 74-106 mg/dL Ass/Plan Labs and/or images reviewed: Labs reviewed by me, Image(s) reviewed by me Problem List Acute kidney injury likely ATN, FeNa ,> 2% Acute respiratory failure, patient intubated on ventilator Hemodynamic shock acute blood loss anemia Perforated gastric ulcer status post surgery 10/04 Hyponatremia resolved Pneumonia Sepsis Hypomagnesemia Acute blood loss anemia status post PRBC Recommendations Kidney function slowly improving Increased urine output Barrios catheter Strict I&Os I agree with IV fluid hydration IV antibiotic Electrolytes replacement Magnesium sulfate IV piggyback We will continue to follow up Assessment/Plan s/p repair large perforated pyloric ulcer POD#5 WBC improving notes reviewed more bilious output from NG abdomen soft , non distended, KWAN drains serous fluid. Plan: continue with current treatment Plan discussed with Maggie Visit Coding Surgery Date of Service if different f: October 09, 2024 Billing Provider: SAMMIE LEONARDO MD Surgery Visit Codes: [id number] INP/OBS CARE(HIGH) YING SCRUGGS [employer] OPERATOR October 09, 2024 17:34
[2024-10-09] MEDS: TPN PER PHARMACY IV NR (21:38)
--- NOTE | 2024-10-09 22:08 | DVHPN2 ---
Progress Note - Dictate Date Seen: October 09, 2024 Medical Necessity Reason Pt with a Central, PICC or Fol: Yes The following are medically ne: Gómez Catheter Reason for gómez catheter: Strict I&O vital signs Vital Sign Date Time Temp Pulse Resp B/P (MAP) Pulse Ox O2 Delivery O2 Flow Rate FiO2 10/09/24 20:43 69 24 137/70 (92) 100 30 10/09/24 19:15 99.9 99.9 10/09/24 18:00 Mechanical Ventilator+ Total Intake and Output 10/08/24 10/08/24 10/09/24 15:00 23:00 07:00 Intake Total 1499.0 ml 1205.0 ml 1354.5 ml Output Total 1930 ml 1710 ml Balance 1499.0 ml -725.0 ml -355.5 ml medications Current Medications Medications Dose Ordered Sig/Wally Route Start Time Stop Time Status Last Admin Dose Admin Norepinephrine Bitartrate 250 ml @ 3.75 mls/hr Q24H IV 10/04/24 08:00 10/05/24 13:05 7.5 MLS/HR Fentanyl Citrate 250 ml @ 2.5 mls/hr Q24H IV 10/04/24 09:45 10/09/24 18:35 25 MLS/HR Ondansetron HCl 4 mg Q4HP PRN IV 10/04/24 11:45 Morphine Sulfate 2 mg Q4HPRN PRN IV 10/04/24 11:45 Nitroglycerin 0.4 mg Q5MINP PRN SL 10/04/24 11:45 Morphine Sulfate 2 mg Q30M PRN IV 10/04/24 11:45 Lorazepam 50 mg/ Sodium Chloride 50 ml @ 1 mls/hr Q24H IV 10/04/24 18:15 Cancel Midazolam HCl 50 ml @ 1 mls/hr Q24H IV 10/04/24 18:30 10/09/24 16:29 7 MLS/HR Vasopressin 20 units/Sodium Chloride 100 ml @ 12 mls/hr Q8H20M IV 10/04/24 20:30 10/06/24 22:26 12 MLS/HR Acetaminophen 650 mg Q6HPRN PRN [place] 10/04/24 21:00 Amino Acids 0 ml @ 0 mls/hr PER PHARMACY IV 10/05/24 14:30 UNV Amino Acids 0 ml @ 0 mls/hr PER PHARMACY IV 10/05/24 14:30 Diagnostic Test (Pha) 1 strip Q6HR 10/05/24 18:00 10/09/24 18:00 1 STRIP Insulin Human Regular FOLLOW SLIDING SCALE Q6HR SC 10/05/24 18:00 10/06/24 23:42 2 UNITS Dextrose 50 ml UD IV 10/05/24 14:45 Pantoprazole Sodium 40 mg BID IV 10/07/24 10:00 10/09/24 21:33 40 MG Meropenem 50 ml @ 17 mls/hr Q12HR IV 10/07/24 10:00 UNV Micafungin Sodium 100 mg/Sodium Chloride 100 ml @ 100 mls/hr DAILY IV 10/07/24 10:00 10/09/24 10:26 100 MLS/HR Meropenem 50 ml @ 16.6 mls/hr Q12HR IV 10/07/24 10:00 10/09/24 21:34 16.6 MLS/HR Labetalol HCl 10 mg Q2HPRN PRN IV 10/08/24 09:30 Sodium Chloride 1,000 ml @ 75 mls/hr [id number] IV 10/08/24 11:15 10/09/24 05:45 75 MLS/HR Fat Emulsion Intravenous 200 ml/Potassium Acetate 20 meq/ Potassium Phosphate 10 meq/ Calcium Gluconate 4.65 meq/ Magnesium Sulfate 6 meq/ Multivitamins 10 ml/Amino Acids/ Dextrose/Purified Water 1,533.7727 ml @ 63 mls/hr [id number] IV 10/09/24 22:00 10/10/24 21:59 10/09/24 21:38 63 MLS/HR laboratory and microbiology Laboratory Tests 10/09/24 03:15 Test 10/09/24 03:15 Range/Units Serum Glucose 124 H 74-106 mg/dL Assessment/Plan Impression Acute hypoxemic respiratory failure Perforated viscus Septic shock Smoker Patient seen and examined in ICU Events On mechanical ventilation S/p intubation PEEP 5, FiO2 40% S/p ex lap and repair Labs and imaging reviewed ABG reviewed Management Vent support Titrate to maintain sats 90% or above Sedation holiday in AM If patient follows commands, proceed to weaning trial Pressure support 11/22, extubate when ready Continue antibiotics F/u cultures Bronchodilators Monitor renal function Monitor electrolytes Supplement as needed Pressors as needed for hemodynamic support To maintain a mean arterial pressure of 65 mmHg F/u GI DVT prophylaxis Critical care time 35 minutes Dietary Evaluation Review Comments: 1. Continue TPN to meet at least 75% estimated needs 2. Continue current POC Expected Outcomes/Goals: FU 2-3 days to meet adequate energy & protein within 7 days of NPO Plan discussed with: Other (RN) CC Plasma Assessment Blood Product Administration S: [id number] VALENTE DEE MD October 09, 2024 22:08
[2024-10-10] VITALS (102 sets, daily range): BP systolic 88–192; BP diastolic 54–121; PULSE 64–130; RESP 14–34; TEMP 98.8–100.8; O2SAT 97–100
[2024-10-10 04:02] LABS: Hematocrit 32.8 % (41.0-53.0); Hemoglobin 11.2 g/dL (13.5-17.5); Mean Corpuscular Hemoglobin 29.6 pg (28.0-32.0); Mean Corpuscular Volume 87.0 fL (80.0-100.0); Nucleated Red Blood Cells % 0.0 %
[2024-10-10 04:07] LABS: Alkaline Phosphatase 105 U/L (46-116); Anion Gap 9 (5-15); BUN/Creatinine Ratio 22.0 (10.0-20.0); Carbon Dioxide 21 mmol/L (20-31); Magnesium 1.9 mg/dL (1.6-2.6); Potassium 3.7 mmol/L (3.5-5.1); Sodium 141 mmol/L (136-145)
[2024-10-10 04:19] LABS: Alanine Aminotransferase 128 U/L (7-40); Albumin 2.4 g/dL (3.2-4.8); Bilirubin, Total 3.6 mg/dL (0.2-1.0); Blood Urea Nitrogen 36 mg/dL (9-23); Calcium 7.6 mg/dL (8.7-10.4); Chloride 111 mmol/L (98-107); Glucose 160 mg/dL (74-106); Total Protein 4.4 g/dL (5.7-8.2)
[2024-10-10] MEDS: DEXMEDETOMIDINE HCL IN D5W 100 ML IV SCH (05:07)
--- NOTE | 2024-10-10 05:50 | DVH ---
EXAM: XR Chest, 1 View CLINICAL INDICATION: intubation TECHNIQUE: Frontal view of the chest. COMPARISON: XY CHEST PORTABLE on DOS: 10/09/24, XY CHEST PORTABLE on DOS: 10/09/24, XY CHEST PORTABLE on DOS: 10/08/24, XY CHEST PORTABLE on DOS: 10/07/24, XY CHEST PORTABLE on DOS: 10/06/24 FINDINGS: LUNGS AND PLEURAL SPACES: Pulmonary congestion and edema. Pneumonia cannot be excluded. Bilateral pleural effusions. No pneumothorax. HEART: Unremarkable. No cardiomegaly. MEDIASTINUM: Unremarkable. Normal mediastinal contour. BONES/JOINTS: Unremarkable. No acute fracture. TUBES, LINES AND DEVICES: Right internal jugular central venous catheter tip in the superior vena c rosaline. The endotracheal tube (ETT) is in satisfactory position. Enteric tube tip in the stomach. OTHER FINDINGS: . . . . IMPRESSION: 1. Pulmonary congestion and edema. Pneumonia cannot be excluded. 2. Bilateral pleural effusions. 3. No significant change from the prior exam.
--- NOTE | 2024-10-10 06:51 | DVHPN2 ---
Subjective Patient intubated and sedated Reviewed: Care Plan, H&P, Labs, Medications Changes from previous H/P or p: No Changes General: Per HPI Objective Vitals Vital Signs Date Time Temp Pulse Resp B/P (MAP) Pulse Ox O2 Delivery O2 Flow Rate FiO2 10/10/24 06:00 127/74 10/10/24 06:00 86 25 99 30 10/10/24 05:49 Mechanical Ventilator+ 10/10/24 04:00 99.1 99.1 Intake/Output Intake and Output 10/10/24 07:00 Intake Total 2543.5 ml Output Total 3590 ml Balance -1046.5 ml Intake Oral 0 ml IV Total 2543.5 ml Output Urine Total 2600 ml Gastric Drainage Total 600 ml Drainage Total 390 ml General Appearance: moderate distress, Other (Chemically sedated) HEENT: Atraumatic, PERRLA Lungs: Clear to auscultation, Normal air movement, Other (Mechanical ventilation, FiO2 40%) Cardiovascular: Regular rate, Normal S1, Normal S2 Abdomen: Other (Absent bowel sounds. KWAN drain x3 with serosanguineous fluid) Musculoskeletal: Normal sensory function, Normal motor function Skin: Dry, Intact, Other (Abdominal incision dry and intact, we will approximately) Psych/Mental Status: Other (Unable to assess) Medications Current Medications Medications Dose Ordered Sig/Wally Route Start Time Stop Time Status Last Admin Dose Admin Norepinephrine Bitartrate 250 ml @ 3.75 mls/hr Q24H IV 10/04/24 08:00 10/05/24 13:05 7.5 MLS/HR Fentanyl Citrate 250 ml @ 2.5 mls/hr Q24H IV 10/04/24 09:45 10/10/24 03:44 12.5 MLS/HR Ondansetron HCl 4 mg Q4HP PRN IV 10/04/24 11:45 Morphine Sulfate 2 mg Q4HPRN PRN IV 10/04/24 11:45 Nitroglycerin 0.4 mg Q5MINP PRN SL 10/04/24 11:45 Morphine Sulfate 2 mg Q30M PRN IV 10/04/24 11:45 Lorazepam 50 mg/ Sodium Chloride 50 ml @ 1 mls/hr Q24H IV 10/04/24 18:15 Cancel Midazolam HCl 50 ml @ 1 mls/hr Q24H IV 10/04/24 18:30 10/10/24 05:07 0 MLS/HR Vasopressin 20 units/Sodium Chloride 100 ml @ 12 mls/hr Q8H20M IV 10/04/24 20:30 10/06/24 22:26 12 MLS/HR Acetaminophen 650 mg Q6HPRN PRN [place] 10/04/24 21:00 Amino Acids 0 ml @ 0 mls/hr PER PHARMACY IV 10/05/24 14:30 UNV Amino Acids 0 ml @ 0 mls/hr PER PHARMACY IV 10/05/24 14:30 Diagnostic Test (Pha) 1 strip Q6HR 10/05/24 18:00 10/10/24 06:06 1 STRIP Insulin Human Regular FOLLOW SLIDING SCALE Q6HR SC 10/05/24 18:00 10/06/24 23:42 2 UNITS Dextrose 50 ml UD IV 10/05/24 14:45 Pantoprazole Sodium 40 mg BID IV 10/07/24 10:00 10/09/24 21:33 40 MG Meropenem 50 ml @ 17 mls/hr Q12HR IV 10/07/24 10:00 UNV Micafungin Sodium 100 mg/Sodium Chloride 100 ml @ 100 mls/hr DAILY IV 10/07/24 10:00 10/09/24 10:26 100 MLS/HR Meropenem 50 ml @ 16.6 mls/hr Q12HR IV 10/07/24 10:00 10/09/24 21:34 16.6 MLS/HR Labetalol HCl 10 mg Q2HPRN PRN IV 10/08/24 09:30 Sodium Chloride 1,000 ml @ 75 mls/hr [id number] IV 10/08/24 11:15 10/09/24 05:45 75 MLS/HR Fat Emulsion Intravenous 200 ml/Potassium Acetate 20 meq/ Potassium Phosphate 10 meq/ Calcium Gluconate 4.65 meq/ Magnesium Sulfate 6 meq/ Multivitamins 10 ml/Amino Acids/ Dextrose/Purified Water 1,533.7727 ml @ 63 mls/hr [id number] IV 10/09/24 22:00 10/10/24 21:59 10/09/24 21:38 63 MLS/HR Laboratory Results Laboratory Tests 10/10/24 03:15 Chemistry Test 10/10/24 03:15 Albumin 2.4 g/dL (3.2-4.8) L Calcium Level 7.6 mg/dL (8.7-10.4) L Magnesium Level 1.9 mg/dL (1.6-2.6) Phosphorus Level 3.0 mg/dL (2.4-5.1) Total Protein 4.4 g/dL (5.7-8.2) L LFT Test 10/10/24 03:15 Alanine Aminotransferase (ALT) 128 U/L (7-40) H Alkaline Phosphatase 105 U/L (46-116) Aspartate Amino Transferase (AST) 45 U/L (13-40) H Total Bilirubin 3.6 mg/dL (0.2-1.0) H Urinalysis Test 10/05/24 15:05 Urine Color Light-yellow (Yellow) Urine Clarity Hazy (Clear) H Urine pH 5.5 (5.0-9.0) Urine Specific [place] 1.018 (1.001-1.035) Urine Protein 1+ (Negative) H Urine Ketones Negative (Negative) Urine Blood 3+ /uL (Negative) H Urine Nitrite Negative (Negative) Urine Bilirubin Negative (Negative) Urine Urobilinogen Normal mg/dL (Negative) Urine Leukocyte Esterase Negative /uL (Negative) Urine RBC 1 /hpf (0 - 3) Urine Microscopic WBC 9 /HPF (0-3) H Urine Squamous Epithelial Cells Few /hpf (<5) Urine Bacteria Few /hpf (None Seen) H Urine Mucus Few (None Seen) Urine Creatinine 39.22 mg/dL (30.0-125.0) Urine Sodium 62 mmol/L (40-220) Urine Glucose Trace mg/dL (Normal) Urine Total Protein 85.0 mg/dL (1-14) H Blood Gas Results Test 10/09/24 08:17 Arterial Blood pH 7.373 (7.350-7.450) FiO2 % 40.0 Microbiology Microbiology Date/Time Source Procedure Growth Status 10/05/24 15:05 Voided Urine Urine Culture - Final Complete 10/04/24 17:10 Nose MRSA Screen - Final Complete 10/04/24 07:01 Blood Blood Culture - Final NO GROWTH AFTER 5 DAYS OF INCUBATION. Complete Labs and/or images reviewed: Labs reviewed by me, Image(s) reviewed by me Assessment/Plan Assessment/Plan Impression: -severe septic shock -pneumoperitoneum secondary to perforated gastric ulcer -acute kidney injury, hemodynamically mediated, probable VMN -acute hypoxic respiratory failure -shock liver -nicotine dependence -history of CVA Plan: Events: LFTs trending up. Bili increasing. Liver ultrasound reveals pericholecystic edema as well as gallbladder wall thickening. Hold CPAP trial at this time. Continue current antimicrobial course. Reconsult surgery -continue Merrem and micafungin -TPN -labetalol IV p.r.n. for hypertension -Protonix 40 mg IV twice a day -further recommendations per surgical consultation -continue current sedation -repeat labs, chest x-ray, ABG in a.m. Critical care time spent with patient discussing and formulating plan of care: 40 minutes. This does not include time spent performing procedures. This medical document was created using an electronic medical record system with [employer] dictation system. Although this document has been carefully reviewed, there may still be some phonetic and typographical errors. These areas are purely typographical due to imperfections of the software programs, and do not reflect any compromise in the patient's medical care. Plan discussed with: Patient, Other (RN) My Orders Orders - CHEYENNE PIKE NP Procedure Category Date Status Time LIVER US 10/09/24 Resulted 08:37 Communication Order ORDERS 10/09/24 Transmitted 09:51 Chest Portable XY 10/09/24 Resulted 14:43 Dexmedetomidine Hcl PHA 10/09/24 In Process In D5w (Precedex) 14:45 * Surgical Consult CONS 10/10/24 Verified Date of Service: October 10, 2024 Billing Provider: CHEYENNE PIKE NP Common Visit Codes: [id number] CARE 30-74 MIN CHEYENNE PIKE NP October 10, 2024 06:51
[2024-10-10 07:45] LABS: Base Excess -3.4 mmol/L (-2.0-3.0)
[2024-10-10] MEDS: PROPOFOL 100 ML IV SCH (10:30)
--- NOTE | 2024-10-10 11:03 | DVHPN2 ---
Progress Note Date Seen: October 10, 2024 Medical Necessity Reason Pt with a Central, PICC or Fol: Yes The following are medically ne: Gómez Catheter Reason for gómez catheter: Strict I&O Objective vital signs Vital Sign Date Time Temp Pulse Resp B/P (MAP) Pulse Ox O2 Delivery O2 Flow Rate FiO2 10/10/24 08:00 77 24 127/74 (91) 100 30 10/10/24 05:49 Mechanical Ventilator+ 10/10/24 04:00 99.1 99.1 Total Intake and Output 10/09/24 10/09/24 10/10/24 15:00 23:00 07:00 Intake Total 937 ml 604 ml 1007.5 ml Output Total 2310 ml 1280 ml Balance 937 ml -1706 ml -272.5 ml medications Current Medications Medications Dose Ordered Sig/Wally Route Start Time Stop Time Status Last Admin Dose Admin Norepinephrine Bitartrate 250 ml @ 3.75 mls/hr Q24H IV 10/04/24 08:00 10/05/24 13:05 7.5 MLS/HR Fentanyl Citrate 250 ml @ 2.5 mls/hr Q24H IV 10/04/24 09:45 10/10/24 03:44 12.5 MLS/HR Ondansetron HCl 4 mg Q4HP PRN IV 10/04/24 11:45 Morphine Sulfate 2 mg Q4HPRN PRN IV 10/04/24 11:45 Nitroglycerin 0.4 mg Q5MINP PRN SL 10/04/24 11:45 Morphine Sulfate 2 mg Q30M PRN IV 10/04/24 11:45 Lorazepam 50 mg/ Sodium Chloride 50 ml @ 1 mls/hr Q24H IV 10/04/24 18:15 Cancel Midazolam HCl 50 ml @ 1 mls/hr Q24H IV 10/04/24 18:30 10/10/24 05:07 0 MLS/HR Vasopressin 20 units/Sodium Chloride 100 ml @ 12 mls/hr Q8H20M IV 10/04/24 20:30 10/06/24 22:26 12 MLS/HR Acetaminophen 650 mg Q6HPRN PRN [place] 10/04/24 21:00 Amino Acids 0 ml @ 0 mls/hr PER PHARMACY IV 10/05/24 14:30 UNV Amino Acids 0 ml @ 0 mls/hr PER PHARMACY IV 10/05/24 14:30 Diagnostic Test (Pha) 1 strip Q6HR 10/05/24 18:00 10/10/24 06:06 1 STRIP Insulin Human Regular FOLLOW SLIDING SCALE Q6HR SC 10/05/24 18:00 10/06/24 23:42 2 UNITS Dextrose 50 ml UD IV 10/05/24 14:45 Pantoprazole Sodium 40 mg BID IV 10/07/24 10:00 10/10/24 10:35 40 MG Meropenem 50 ml @ 17 mls/hr Q12HR IV 10/07/24 10:00 UNV Micafungin Sodium 100 mg/Sodium Chloride 100 ml @ 100 mls/hr DAILY IV 10/07/24 10:00 10/10/24 10:34 100 MLS/HR Meropenem 50 ml @ 16.6 mls/hr Q12HR IV 10/07/24 10:00 10/10/24 10:34 16.6 MLS/HR Labetalol HCl 10 mg Q2HPRN PRN IV 10/08/24 09:30 Fat Emulsion Intravenous 200 ml/Potassium Acetate 20 meq/ Potassium Phosphate 10 meq/ Calcium Gluconate 4.65 meq/ Magnesium Sulfate 6 meq/ Multivitamins 10 ml/Amino Acids/ Dextrose/Purified Water 1,533.7727 ml @ 63 mls/hr [id number] IV 10/09/24 22:00 10/10/24 21:59 10/09/24 21:38 63 MLS/HR Propofol 100 ml @ 2.181 mls/ hr Q24H IV 10/10/24 10:30 laboratory and microbiology Laboratory Tests 10/10/24 03:15 Test 10/10/24 03:15 Range/Units Serum Glucose 160 H 74-106 mg/dL Problem List/Assessment/Plan Problem List/Assessment/Plan 10/10/24 patient had exploratory operation with closure of perforated peptic ulceration about 5 days ago, now concern about possible cholecystitis. GB sludge,GB wall thickened and surounding edema,.LFT's elevated. [patient has history of heavy alcohol use(spouse report). LFTs elevation could be due to liver Ds but cholecystostomy is a reasonable next step, will follow with you Plan discussed with: Spouse Dietary Evaluation Review Comments: 1. Continue TPN to meet at least 75% estimated needs 2. Continue current POC Expected Outcomes/Goals: FU 2-3 days to meet adequate energy & protein within 7 days of NPO LOBO BOSWELL MD October 10, 2024 11:03
[2024-10-10] MEDS: LIDOCAINE 2%HCL (LOCAL ANESTH.) INJ 20ML MDV ONE ×2 (11:46→13:30)
[2024-10-10] MEDS: IODIXANOL 320MG/ML 100ML BTL IV ONE (13:11)
--- NOTE | 2024-10-10 14:35 | DVH ---
XY PERCUTANEOUS CHOLANGIO, HISTORY: biliary sludge, concern for acute cholecystitis and sepsis. PROCEDURE: Informed consent was obtained. The patient was placed in supine position, and initial limi roz ultrasound evaluation of the RUQ abdomen was obtained. The skin overlying the gallbladder was pre pped with chlorhexidine which was allowed to dry and draped in the usual sterile fashion. Time out wa s performed. IV sedation and 1% lidocaine local anesthetic were administered. Using US needle biopsy guide, a 21 g Accu stick needle was advanced into the gallbladder via a intercostal ,transhepatic dione lockwood. Following aspiration of bile, a small amount of contrast was injected to delineate the viscous . The needle was then exchanged over mandrill wire to a non-vascular access set, through which a alek dewire was advanced into the gallbladder. Following serial dilation, an 8.5 [place] multipurpose [place] catheter was placed within the gallbladder. Approximately 5 cc of fluid was withdrawn and sent to the laboratory for analysis. The drain was secured in place and attached to gravity drainage. A steri le dressing was applied. No immediate complication was identified. DAP 131 FLUOROSCOPY TIME: 1.7 minutes. CONTRAST USED: 15 mL Isovue 300. SEDATION: Dr. Gaudencio Black was personally responsible for the administration of moderate sedation during the procedure performed, including the use of an independent trained observer who had no other duties during the procedure. The drugs utilized were IV fentanyl and versed (see nursing log for details). The total time of supervision by the attending physician was [id number] minutes. FINDINGS: Limited US scan of the right upper abdomen demonstrates the gallbladder with sludge. Aspira roz bile is thick. Completion image demonstrates good positioning of the drainage catheter. The cysti c duct is obstructed. IMPRESSION: Obstructed cystic duct. Sample collected for analysis. US/fluoro-guided percutaneous 8.5 slovenian cholecystostomy tube placement. PLAN: This tube will need to remain in place for at least 6-8 weeks before removal, so as to prevent bile leakage. If cholecystectomy is not planned, please have patient follow-up with IR at discharge t o schedule cholangiogram in 6-8 weeks. If cystic duct patency and tract maturation is established, we will consider clamp trial prior to removal of the tube in 1-2 weeks.
--- NOTE | 2024-10-10 15:29 | DVHPN2 ---
Progress Note - Dictate Date Seen: October 10, 2024 Medical Necessity Reason Pt with a Central, PICC or Fol: Yes The following are medically ne: Gómez Catheter Reason for gómez catheter: Strict I&O vital signs Vital Sign Date Time Temp Pulse Resp B/P (MAP) Pulse Ox O2 Delivery O2 Flow Rate FiO2 10/10/24 11:58 114 34 141/89 (106) 99 30 10/10/24 08:00 Mechanical Ventilator+ 10/10/24 04:00 99.1 99.1 Total Intake and Output 10/09/24 10/09/24 10/10/24 15:00 23:00 07:00 Intake Total 937 ml 604 ml 1007.5 ml Output Total 2310 ml 1280 ml Balance 937 ml -1706 ml -272.5 ml medications Current Medications Medications Dose Ordered Sig/Wally Route Start Time Stop Time Status Last Admin Dose Admin Norepinephrine Bitartrate 250 ml @ 3.75 mls/hr Q24H IV 10/04/24 08:00 10/05/24 13:05 7.5 MLS/HR Fentanyl Citrate 250 ml @ 2.5 mls/hr Q24H IV 10/04/24 09:45 10/10/24 03:44 12.5 MLS/HR Ondansetron HCl 4 mg Q4HP PRN IV 10/04/24 11:45 Morphine Sulfate 2 mg Q4HPRN PRN IV 10/04/24 11:45 Nitroglycerin 0.4 mg Q5MINP PRN SL 10/04/24 11:45 Morphine Sulfate 2 mg Q30M PRN IV 10/04/24 11:45 Lorazepam 50 mg/ Sodium Chloride 50 ml @ 1 mls/hr Q24H IV 10/04/24 18:15 Cancel Midazolam HCl 50 ml @ 1 mls/hr Q24H IV 10/04/24 18:30 10/10/24 05:07 0 MLS/HR Vasopressin 20 units/Sodium Chloride 100 ml @ 12 mls/hr Q8H20M IV 10/04/24 20:30 10/06/24 22:26 12 MLS/HR Acetaminophen 650 mg Q6HPRN PRN [place] 10/04/24 21:00 Amino Acids 0 ml @ 0 mls/hr PER PHARMACY IV 10/05/24 14:30 UNV Amino Acids 0 ml @ 0 mls/hr PER PHARMACY IV 10/05/24 14:30 Diagnostic Test (Pha) 1 strip Q6HR 10/05/24 18:00 10/10/24 12:00 1 STRIP Insulin Human Regular FOLLOW SLIDING SCALE Q6HR SC 10/05/24 18:00 10/06/24 23:42 2 UNITS Dextrose 50 ml UD IV 10/05/24 14:45 Pantoprazole Sodium 40 mg BID IV 10/07/24 10:00 10/10/24 10:35 40 MG Meropenem 50 ml @ 17 mls/hr Q12HR IV 10/07/24 10:00 UNV Micafungin Sodium 100 mg/Sodium Chloride 100 ml @ 100 mls/hr DAILY IV 10/07/24 10:00 10/10/24 10:34 100 MLS/HR Labetalol HCl 10 mg Q2HPRN PRN IV 10/08/24 09:30 Fat Emulsion Intravenous 200 ml/Potassium Acetate 20 meq/ Potassium Phosphate 10 meq/ Calcium Gluconate 4.65 meq/ Magnesium Sulfate 6 meq/ Multivitamins 10 ml/Amino Acids/ Dextrose/Purified Water 1,533.7727 ml @ 63 mls/hr [id number] IV 10/09/24 22:00 10/10/24 21:59 10/09/24 21:38 63 MLS/HR Propofol 100 ml @ 2.181 mls/ hr Q24H IV 10/10/24 10:30 10/10/24 10:30 2.181 MLS/HR Meropenem 50 ml @ 16.6 mls/hr Q8H IV 10/10/24 18:00 Fat Emulsion Intravenous 200 ml/Potassium Acetate 20 meq/ Potassium Phosphate 10 meq/ Calcium Gluconate 4.65 meq/ Magnesium Sulfate 6 meq/ Multivitamins 10 ml/Insulin Human Regular 8 units/ Amino Acids/ Dextrose/Purified Water 1,533.8527 ml @ 64 mls/hr [id number] IV 10/10/24 22:00 10/11/24 21:59 laboratory and microbiology Laboratory Tests 10/10/24 03:15 Test 10/10/24 03:15 Range/Units Serum Glucose 160 H 74-106 mg/dL Assessment/Plan Impression Acute hypoxemic respiratory failure Perforated viscus Septic shock Smoker Patient seen and examined in ICU Events On mechanical ventilation S/p intubation PEEP 5, FiO2 40% S/p ex lap and repair Labs and imaging reviewed Abnormal ultrasound of the right upper quadrant Signs of acalculous cholecystitis ABG reviewed Management Vent support Titrate to maintain sats 90% or above Sedation holiday If patient follows commands, proceed to weaning trial Pressure support 11/22, extubate when ready Continue antibiotics F/u cultures Bronchodilators Monitor renal function Monitor electrolytes Supplement as needed Pressors as needed for hemodynamic support To maintain a mean arterial pressure of 65 mmHg Awaiting percutaneous gallbladder drain F/u GI DVT prophylaxis Critical care time 35 minutes Dietary Evaluation Review Comments: 1. Continue TPN to meet at least 75% estimated needs 2. Continue current POC Expected Outcomes/Goals: FU 2-3 days to meet adequate energy & protein within 7 days of NPO Plan discussed with: Other (Rn) CC Plasma Assessment Blood Product Administration S: [id number] VALENTE DEE MD October 10, 2024 15:29
--- NOTE | 2024-10-10 15:43 | DVHPN2 ---
Progress Note - Dictate Date Seen: October 10, 2024 Medical Necessity Reason Pt with a Central, PICC or Fol: Yes The following are medically ne: Gómez Catheter Reason for gómez catheter: Strict I&O Subjective Remains intubated, urine volumes nonoliguric vital signs Vital Sign Date Time Temp Pulse Resp B/P (MAP) Pulse Ox O2 Delivery O2 Flow Rate FiO2 10/10/24 14:09 130 32 154/98 (116) 100 30 10/10/24 14:00 Mechanical Ventilator+ 10/10/24 04:00 99.1 99.1 Total Intake and Output 10/09/24 10/09/24 10/10/24 15:00 23:00 07:00 Intake Total 937 ml 604 ml 1007.5 ml Output Total 2310 ml 1280 ml Balance 937 ml -1706 ml -272.5 ml medications Current Medications Medications Dose Ordered Sig/Wally Route Start Time Stop Time Status Last Admin Dose Admin Norepinephrine Bitartrate 250 ml @ 3.75 mls/hr Q24H IV 10/04/24 08:00 10/05/24 13:05 7.5 MLS/HR Fentanyl Citrate 250 ml @ 2.5 mls/hr Q24H IV 10/04/24 09:45 10/10/24 03:44 12.5 MLS/HR Ondansetron HCl 4 mg Q4HP PRN IV 10/04/24 11:45 Morphine Sulfate 2 mg Q4HPRN PRN IV 10/04/24 11:45 Nitroglycerin 0.4 mg Q5MINP PRN SL 10/04/24 11:45 Morphine Sulfate 2 mg Q30M PRN IV 10/04/24 11:45 Lorazepam 50 mg/ Sodium Chloride 50 ml @ 1 mls/hr Q24H IV 10/04/24 18:15 Cancel Midazolam HCl 50 ml @ 1 mls/hr Q24H IV 10/04/24 18:30 10/10/24 05:07 0 MLS/HR Vasopressin 20 units/Sodium Chloride 100 ml @ 12 mls/hr Q8H20M IV 10/04/24 20:30 10/06/24 22:26 12 MLS/HR Acetaminophen 650 mg Q6HPRN PRN [place] 10/04/24 21:00 Amino Acids 0 ml @ 0 mls/hr PER PHARMACY IV 10/05/24 14:30 UNV Amino Acids 0 ml @ 0 mls/hr PER PHARMACY IV 10/05/24 14:30 Diagnostic Test (Pha) 1 strip Q6HR 10/05/24 18:00 10/10/24 12:00 1 STRIP Insulin Human Regular FOLLOW SLIDING SCALE Q6HR SC 10/05/24 18:00 10/06/24 23:42 2 UNITS Dextrose 50 ml UD IV 10/05/24 14:45 Pantoprazole Sodium 40 mg BID IV 10/07/24 10:00 10/10/24 10:35 40 MG Meropenem 50 ml @ 17 mls/hr Q12HR IV 10/07/24 10:00 UNV Micafungin Sodium 100 mg/Sodium Chloride 100 ml @ 100 mls/hr DAILY IV 10/07/24 10:00 10/10/24 10:34 100 MLS/HR Labetalol HCl 10 mg Q2HPRN PRN IV 10/08/24 09:30 Fat Emulsion Intravenous 200 ml/Potassium Acetate 20 meq/ Potassium Phosphate 10 meq/ Calcium Gluconate 4.65 meq/ Magnesium Sulfate 6 meq/ Multivitamins 10 ml/Amino Acids/ Dextrose/Purified Water 1,533.7727 ml @ 63 mls/hr [id number] IV 10/09/24 22:00 10/10/24 21:59 10/09/24 21:38 63 MLS/HR Propofol 100 ml @ 2.181 mls/ hr Q24H IV 10/10/24 10:30 10/10/24 10:30 2.181 MLS/HR Meropenem 50 ml @ 16.6 mls/hr Q8H IV 10/10/24 18:00 Fat Emulsion Intravenous 200 ml/Potassium Acetate 20 meq/ Potassium Phosphate 10 meq/ Calcium Gluconate 4.65 meq/ Magnesium Sulfate 6 meq/ Multivitamins 10 ml/Insulin Human Regular 8 units/ Amino Acids/ Dextrose/Purified Water 1,533.8527 ml @ 64 mls/hr [id number] IV 10/10/24 22:00 10/11/24 21:59 objective Gen: nad, intubated heent: nc/at, mmm lungs: Occasional rhonchi cvs: no rub ext: + edema laboratory and microbiology Laboratory Tests 10/10/24 03:15 Test 10/10/24 03:15 Range/Units Serum Glucose 160 H 74-106 mg/dL Assessment/Plan Problem List/Assessment/Plan Acute kidney injury likely ATN, FeNa ,> 2% Acute respiratory failure, patient intubated on ventilator Hemodynamic shock acute blood loss anemia Perforated gastric ulcer status post surgery 10/04 Hyponatremia resolved Pneumonia Sepsis Hypomagnesemia Acute blood loss anemia status post PRBC Recommendations Continued indolent improvement in GFR Loop diuretic on an as-needed basis We will continue to follow Dietary Evaluation Review Comments: 1. Continue TPN to meet at least 75% estimated needs 2. Continue current POC Expected Outcomes/Goals: FU 2-3 days to meet adequate energy & protein within 7 days of NPO Plan discussed with: Other CC Plasma Assessment Blood Product Administration S: [id number] PEARL RUSSELL MD October 10, 2024 15:43
[2024-10-10] MEDS: MEROPENEM 1GM IVPB 50 ML IV SCH (17:02)
[2024-10-10] MEDS: ACETAMINOPHEN 650 MG RECT SUPP PR PRN (18:09)
[2024-10-10] MEDS: TPN PER PHARMACY IV NR (21:57)
[2024-10-11] VITALS (109 sets, daily range): BP systolic 74–144; BP diastolic 39–92; PULSE 65–117; RESP 12–38; TEMP 99.1–100.6; O2SAT 96–100
[2024-10-11 04:17] LABS: Alkaline Phosphatase 108 U/L (46-116); Anion Gap 10 (5-15); BUN/Creatinine Ratio 20.9 (10.0-20.0); Carbon Dioxide 21 mmol/L (20-31); Magnesium 1.9 mg/dL (1.6-2.6); Potassium 3.9 mmol/L (3.5-5.1); Sodium 138 mmol/L (136-145)
[2024-10-11 04:18] LABS: Alanine Aminotransferase 105 U/L (7-40); Albumin 2.4 g/dL (3.2-4.8); Bilirubin, Total 3.7 mg/dL (0.2-1.0); Blood Urea Nitrogen 43 mg/dL (9-23); Calcium 8.0 mg/dL (8.7-10.4); Chloride 107 mmol/L (98-107); Glucose 131 mg/dL (74-106); Total Protein 4.5 g/dL (5.7-8.2)
[2024-10-11 08:01] LABS: Base Excess -6.9 mmol/L (-2.0-3.0)
[2024-10-11] MEDS: LACTATED RINGER'S 1,000 ML IV SCH (11:00)
--- NOTE | 2024-10-11 11:34 | DVHPN2 ---
Subjective Intubated and sedated Reviewed: Care Plan, H&P, Labs, Medications, Previous Orders, Radiology, Other (Consultants) Changes from previous H/P or p: No Changes General: Per HPI Objective Vitals Vital Signs Date Time Temp Pulse Resp B/P (MAP) Pulse Ox O2 Delivery O2 Flow Rate FiO2 10/11/24 10:30 99.3 89 19 107/67 (80) 97 99.3 10/11/24 10:29 30 10/11/24 10:00 Mechanical Ventilator+ Intake/Output Intake and Output 10/11/24 07:00 Intake Total 2412.366 ml Output Total 2905 ml Balance -492.634 ml Intake Oral 0 ml IV Total 2412.366 ml Output Urine Total 1675 ml Gastric Drainage Total 795 ml Drainage Total 235 ml Other 200 ml General Appearance: Other (Intubated and sedated) HEENT: Atraumatic Lungs: Other (Few crackles bilateral) Cardiovascular: Regular rate, Normal S2 (l) Abdomen: Other (Surgical binder) Medications Current Medications Medications Dose Ordered Sig/Wally Route Start Time Stop Time Status Last Admin Dose Admin Norepinephrine Bitartrate 250 ml @ 3.75 mls/hr Q24H IV 10/04/24 08:00 10/05/24 13:05 7.5 MLS/HR Fentanyl Citrate 250 ml @ 2.5 mls/hr Q24H IV 10/04/24 09:45 10/11/24 05:49 20 MLS/HR Ondansetron HCl 4 mg Q4HP PRN IV 10/04/24 11:45 Morphine Sulfate 2 mg Q4HPRN PRN IV 10/04/24 11:45 Nitroglycerin 0.4 mg Q5MINP PRN SL 10/04/24 11:45 Morphine Sulfate 2 mg Q30M PRN IV 10/04/24 11:45 Lorazepam 50 mg/ Sodium Chloride 50 ml @ 1 mls/hr Q24H IV 10/04/24 18:15 Cancel Midazolam HCl 50 ml @ 1 mls/hr Q24H IV 10/04/24 18:30 10/11/24 03:46 6 MLS/HR Vasopressin 20 units/Sodium Chloride 100 ml @ 12 mls/hr Q8H20M IV 10/04/24 20:30 10/06/24 22:26 12 MLS/HR Acetaminophen 650 mg Q6HPRN PRN [place] 10/04/24 21:00 10/10/24 18:09 650 MG Amino Acids 0 ml @ 0 mls/hr PER PHARMACY IV 10/05/24 14:30 UNV Amino Acids 0 ml @ 0 mls/hr PER PHARMACY IV 10/05/24 14:30 Diagnostic Test (Pha) 1 strip Q6HR 10/05/24 18:00 10/11/24 05:45 1 STRIP Insulin Human Regular FOLLOW SLIDING SCALE Q6HR SC 10/05/24 18:00 10/06/24 23:42 2 UNITS Dextrose 50 ml UD IV 10/05/24 14:45 Pantoprazole Sodium 40 mg BID IV 10/07/24 10:00 10/11/24 10:01 40 MG Meropenem 50 ml @ 17 mls/hr Q12HR IV 10/07/24 10:00 UNV Micafungin Sodium 100 mg/Sodium Chloride 100 ml @ 100 mls/hr DAILY IV 10/07/24 10:00 10/11/24 10:08 100 MLS/HR Labetalol HCl 10 mg Q2HPRN PRN IV 10/08/24 09:30 Propofol 100 ml @ 2.181 mls/ hr Q24H IV 10/10/24 10:30 10/11/24 10:02 10.905 MLS/HR Meropenem 50 ml @ 16.6 mls/hr Q8H IV 10/10/24 18:00 10/11/24 10:01 16.6 MLS/HR Fat Emulsion Intravenous 200 ml/Potassium Acetate 20 meq/ Potassium Phosphate 10 meq/ Calcium Gluconate 4.65 meq/ Magnesium Sulfate 6 meq/ Multivitamins 10 ml/Insulin Human Regular 8 units/ Amino Acids/ Dextrose/Purified Water 1,533.8527 ml @ 64 mls/hr [id number] IV 10/10/24 22:00 10/11/24 21:59 10/10/24 21:57 64 MLS/HR Lactated Ringer's 1,000 ml @ 50 mls/hr Q20H IV 10/11/24 11:00 UNV Laboratory Results Laboratory Tests 10/10/24 03:15 10/11/24 03:15 Chemistry Test 10/11/24 03:15 Albumin 2.4 g/dL (3.2-4.8) L Calcium Level 8.0 mg/dL (8.7-10.4) L Magnesium Level 1.9 mg/dL (1.6-2.6) Phosphorus Level 3.7 mg/dL (2.4-5.1) Total Protein 4.5 g/dL (5.7-8.2) L Lipid panel Test 10/11/24 03:15 Triglycerides Level 184 mg/dL (< 150) H LFT Test 10/11/24 03:15 Alanine Aminotransferase (ALT) 105 U/L (7-40) H Alkaline Phosphatase 108 U/L (46-116) Aspartate Amino Transferase (AST) 47 U/L (13-40) H Total Bilirubin 3.7 mg/dL (0.2-1.0) H Urinalysis Test 10/05/24 15:05 Urine Color Light-yellow (Yellow) Urine Clarity Hazy (Clear) H Urine pH 5.5 (5.0-9.0) Urine Specific Wheeler 1.018 (1.001-1.035) Urine Protein 1+ (Negative) H Urine Ketones Negative (Negative) Urine Blood 3+ /uL (Negative) H Urine Nitrite Negative (Negative) Urine Bilirubin Negative (Negative) Urine Urobilinogen Normal mg/dL (Negative) Urine Leukocyte Esterase Negative /uL (Negative) Urine RBC 1 /hpf (0 - 3) Urine Microscopic WBC 9 /HPF (0-3) H Urine Squamous Epithelial Cells Few /hpf (<5) Urine Bacteria Few /hpf (None Seen) H Urine Mucus Few (None Seen) Urine Creatinine 39.22 mg/dL (30.0-125.0) Urine Sodium 62 mmol/L (40-220) Urine Glucose Trace mg/dL (Normal) Urine Total Protein 85.0 mg/dL (1-14) H Blood Gas Results Test 10/11/24 07:55 Arterial Blood pH 7.364 (7.350-7.450) FiO2 % 30.0 Microbiology Microbiology Date/Time Source Procedure Growth Status 10/10/24 13:45 Aspirate Gram Stain Pending Resulted 10/10/24 13:45 Aspirate Body Fluid Culture - Preliminary Resulted 10/05/24 15:05 Voided Urine Urine Culture - Final Complete 10/04/24 17:10 Nose MRSA Screen - Final Complete 10/04/24 07:01 Blood Blood Culture - Final NO GROWTH AFTER 5 DAYS OF INCUBATION. Complete Assessment/Plan Assessment/Plan Acute respiratory failure Sepsis and septic shock Status post perforated gastric ulcer repair Cholecystitis status post cholangiogram/obstructed cystic duct Pneumonia Acute kidney injury History of CVA Elevated liver function tests Plan: Put back some IV fluid at 50 per hour in addition to the TPN of 65. Recheck kidney function tests. Recheck other labs and chest x-ray. Monitor vital signs and urine output. Further plan per orders Total critical care time 40 minutes Plan discussed with: Other (Nursing) My Orders Orders - PATSY LEWIS MD Procedure Category Date Status Time Lactated Ringer's PHA 10/11/24 Logged 11:00 Date of Service: October 11, 2024 Billing Provider: PATSY LEWIS MD Common Visit Codes: [id number] CARE 30-74 MIN PATSY LEWIS MD October 11, 2024 11:34
--- NOTE | 2024-10-11 11:49 | DVH ---
XY CHEST PORTABLE, HISTORY: PT INTUBATED COMPARISON: XY CHEST PORTABLE on DOS: 10/10/24, XY CHEST PORTABLE on DOS: 10/09/24, XY CHEST PORTABLE o n DOS: 10/09/24 XY CHEST PORTABLE on DOS: 10/10/24, XY CHEST PORTABLE on DOS: 10/09/24, XY CHEST PORTABLE on DOS: TECHNICAL DATA: 1 view of the chest was obtained. FINDINGS: Lines and tubes: Endotracheal tube in the mid thoracic trachea. Enteric tube crosses midline into the stomach. As central venous catheter is seen in the SVC. Cardiomediastinal silhouette: normal Pulmonary vasculature: normal Lung expansion: normal Lung airspace: Right basilar consolidation with small right pleural fusion. Lung interstitium: normal Pleura: normal Pneumothorax: no Bones: Unremarkable Other: no IMPRESSION: Endotracheal tube in the mid thoracic trachea. Enteric tube crosses midline into the stomach. As cent ral venous catheter is seen in the SVC. Right basilar consolidation with small right pleural fusion.
--- NOTE | 2024-10-11 15:24 | DVHPN2 ---
Progress Note - Dictate Date Seen: October 11, 2024 Medical Necessity Reason Pt with a Central, PICC or Fol: Yes The following are medically ne: Gómez Catheter Reason for gómez catheter: Strict I&O Subjective Started on LR vital signs Vital Sign Date Time Temp Pulse Resp B/P (MAP) Pulse Ox O2 Delivery O2 Flow Rate FiO2 10/11/24 15:19 100.8 10/11/24 14:33 112 28 117/81 (93) 98 30 10/11/24 14:00 Mechanical Ventilator+ Total Intake and Output 10/10/24 10/10/24 10/11/24 15:00 23:00 07:00 Intake Total 800.715 ml 765.716 ml 845.935 ml Output Total 1960 ml 945 ml Balance 800.715 ml -1194.284 ml -99.065 ml medications Current Medications Medications Dose Ordered Sig/Wally Route Start Time Stop Time Status Last Admin Dose Admin Norepinephrine Bitartrate 250 ml @ 3.75 mls/hr Q24H IV 10/04/24 08:00 10/05/24 13:05 7.5 MLS/HR Fentanyl Citrate 250 ml @ 2.5 mls/hr Q24H IV 10/04/24 09:45 10/11/24 05:49 20 MLS/HR Ondansetron HCl 4 mg Q4HP PRN IV 10/04/24 11:45 Morphine Sulfate 2 mg Q4HPRN PRN IV 10/04/24 11:45 Nitroglycerin 0.4 mg Q5MINP PRN SL 10/04/24 11:45 Morphine Sulfate 2 mg Q30M PRN IV 10/04/24 11:45 Lorazepam 50 mg/ Sodium Chloride 50 ml @ 1 mls/hr Q24H IV 10/04/24 18:15 Cancel Midazolam HCl 50 ml @ 1 mls/hr Q24H IV 10/04/24 18:30 10/11/24 12:02 4 MLS/HR Vasopressin 20 units/Sodium Chloride 100 ml @ 12 mls/hr Q8H20M IV 10/04/24 20:30 10/06/24 22:26 12 MLS/HR Acetaminophen 650 mg Q6HPRN PRN [place] 10/04/24 21:00 10/11/24 15:19 650 MG Amino Acids 0 ml @ 0 mls/hr PER PHARMACY IV 10/05/24 14:30 UNV Amino Acids 0 ml @ 0 mls/hr PER PHARMACY IV 10/05/24 14:30 Diagnostic Test (Pha) 1 strip Q6HR 10/05/24 18:00 10/11/24 12:02 1 STRIP Insulin Human Regular FOLLOW SLIDING SCALE Q6HR SC 10/05/24 18:00 10/06/24 23:42 2 UNITS Dextrose 50 ml UD IV 10/05/24 14:45 Pantoprazole Sodium 40 mg BID IV 10/07/24 10:00 10/11/24 10:01 40 MG Meropenem 50 ml @ 17 mls/hr Q12HR IV 10/07/24 10:00 UNV Micafungin Sodium 100 mg/Sodium Chloride 100 ml @ 100 mls/hr DAILY IV 10/07/24 10:00 10/11/24 10:08 100 MLS/HR Labetalol HCl 10 mg Q2HPRN PRN IV 10/08/24 09:30 Propofol 100 ml @ 2.181 mls/ hr Q24H IV 10/10/24 10:30 10/11/24 10:02 10.905 MLS/HR Meropenem 50 ml @ 16.6 mls/hr Q8H IV 10/10/24 18:00 10/11/24 10:01 16.6 MLS/HR Fat Emulsion Intravenous 200 ml/Potassium Acetate 20 meq/ Potassium Phosphate 10 meq/ Calcium Gluconate 4.65 meq/ Magnesium Sulfate 6 meq/ Multivitamins 10 ml/Insulin Human Regular 8 units/ Amino Acids/ Dextrose/Purified Water 1,533.8527 ml @ 64 mls/hr [id number] IV 10/10/24 22:00 10/11/24 21:59 10/10/24 21:57 64 MLS/HR Lactated Ringer's 1,000 ml @ 50 mls/hr Q20H IV 10/11/24 11:00 10/11/24 11:00 50 MLS/HR Sodium Acetate 40 meq/Calcium Gluconate 1.65 meq/Magnesium Sulfate 6 meq/ Multivitamins 10 ml/Insulin Human Regular 8 units/ Amino Acids/ Dextrose 1,235.1283 ml @ 51 mls/hr [id number] IV 10/11/24 22:00 10/12/24 21:59 objective Gen: nad, intubated heent: nc/at, mmm lungs: Occasional rhonchi cvs: no rub ext: + edema laboratory and microbiology Laboratory Tests 10/11/24 03:15 10/10/24 03:15 Test 10/11/24 03:15 Range/Units Serum Glucose 131 H 74-106 mg/dL Assessment/Plan Problem List/Assessment/Plan Acute kidney injury likely ATN, FeNa ,> 2% Acute respiratory failure, patient intubated on ventilator Hemodynamic shock acute blood loss anemia Perforated gastric ulcer status post surgery 10/04 Hyponatremia resolved Pneumonia Sepsis Hypomagnesemia Acute blood loss anemia status post PRBC Recommendations - repeat FeNa - even fluid balance as tolerated. Dietary Evaluation Review Comments: 1. Continue TPN to meet at least 75% estimated needs 2. Continue current POC Expected Outcomes/Goals: FU 2-3 days to meet adequate energy & protein within 7 days of NPO Plan discussed with: Other CC Plasma Assessment Blood Product Administration S: [id number] PEARL RUSSELL MD October 11, 2024 15:23
--- NOTE | 2024-10-11 17:24 | DVHPN2 ---
Progress Note - Dictate Date Seen: October 11, 2024 Medical Necessity Reason Pt with a Central, PICC or Fol: Yes The following are medically ne: Gómez Catheter Reason for gómez catheter: Strict I&O vital signs Vital Sign Date Time Temp Pulse Resp B/P (MAP) Pulse Ox O2 Delivery O2 Flow Rate FiO2 10/11/24 16:24 97 30 113/74 (87) 100 30 10/11/24 15:19 100.8 10/11/24 14:00 Mechanical Ventilator+ Total Intake and Output 10/10/24 10/10/24 10/11/24 15:00 23:00 07:00 Intake Total 800.715 ml 765.716 ml 845.935 ml Output Total 1960 ml 945 ml Balance 800.715 ml -1194.284 ml -99.065 ml medications Current Medications Medications Dose Ordered Sig/Wally Route Start Time Stop Time Status Last Admin Dose Admin Norepinephrine Bitartrate 250 ml @ 3.75 mls/hr Q24H IV 10/04/24 08:00 10/05/24 13:05 7.5 MLS/HR Fentanyl Citrate 250 ml @ 2.5 mls/hr Q24H IV 10/04/24 09:45 10/11/24 05:49 20 MLS/HR Ondansetron HCl 4 mg Q4HP PRN IV 10/04/24 11:45 Morphine Sulfate 2 mg Q4HPRN PRN IV 10/04/24 11:45 Nitroglycerin 0.4 mg Q5MINP PRN SL 10/04/24 11:45 Morphine Sulfate 2 mg Q30M PRN IV 10/04/24 11:45 Lorazepam 50 mg/ Sodium Chloride 50 ml @ 1 mls/hr Q24H IV 10/04/24 18:15 Cancel Midazolam HCl 50 ml @ 1 mls/hr Q24H IV 10/04/24 18:30 10/11/24 12:02 4 MLS/HR Vasopressin 20 units/Sodium Chloride 100 ml @ 12 mls/hr Q8H20M IV 10/04/24 20:30 10/06/24 22:26 12 MLS/HR Acetaminophen 650 mg Q6HPRN PRN ND 10/04/24 21:00 10/11/24 15:19 650 MG Amino Acids 0 ml @ 0 mls/hr PER PHARMACY IV 10/05/24 14:30 UNV Amino Acids 0 ml @ 0 mls/hr PER PHARMACY IV 10/05/24 14:30 Diagnostic Test (Pha) 1 strip Q6HR 10/05/24 18:00 10/11/24 12:02 1 STRIP Insulin Human Regular FOLLOW SLIDING SCALE Q6HR SC 10/05/24 18:00 10/06/24 23:42 2 UNITS Dextrose 50 ml UD IV 10/05/24 14:45 Pantoprazole Sodium 40 mg BID IV 10/07/24 10:00 10/11/24 10:01 40 MG Meropenem 50 ml @ 17 mls/hr Q12HR IV 10/07/24 10:00 UNV Micafungin Sodium 100 mg/Sodium Chloride 100 ml @ 100 mls/hr DAILY IV 10/07/24 10:00 10/11/24 10:08 100 MLS/HR Labetalol HCl 10 mg Q2HPRN PRN IV 10/08/24 09:30 Propofol 100 ml @ 2.181 mls/ hr Q24H IV 10/10/24 10:30 10/11/24 10:02 10.905 MLS/HR Meropenem 50 ml @ 16.6 mls/hr Q8H IV 10/10/24 18:00 10/11/24 10:01 16.6 MLS/HR Fat Emulsion Intravenous 200 ml/Potassium Acetate 20 meq/ Potassium Phosphate 10 meq/ Calcium Gluconate 4.65 meq/ Magnesium Sulfate 6 meq/ Multivitamins 10 ml/Insulin Human Regular 8 units/ Amino Acids/ Dextrose/Purified Water 1,533.8527 ml @ 64 mls/hr [id number] IV 10/10/24 22:00 10/11/24 21:59 10/10/24 21:57 64 MLS/HR Lactated Ringer's 1,000 ml @ 50 mls/hr Q20H IV 10/11/24 11:00 10/11/24 11:00 50 MLS/HR Sodium Acetate 40 meq/Calcium Gluconate 1.65 meq/Magnesium Sulfate 6 meq/ Multivitamins 10 ml/Insulin Human Regular 8 units/ Amino Acids/ Dextrose 1,235.1283 ml @ 51 mls/hr [id number] IV 10/11/24 22:00 10/12/24 21:59 laboratory and microbiology Laboratory Tests 10/11/24 03:15 10/10/24 03:15 Test 10/11/24 03:15 Range/Units Serum Glucose 131 H 74-106 mg/dL Assessment/Plan Impression Acute hypoxemic respiratory failure Perforated viscus Septic shock Smoker Patient seen and examined in ICU Events On mechanical ventilation S/p intubation PEEP 5, FiO2 40% S/p cholecystic drain placement S/p ex lap and repair Labs and imaging reviewed Abnormal ultrasound of the right upper quadrant Signs of acalculous cholecystitis ABG reviewed Management Vent support Titrate to maintain sats 90% or above Sedation holiday in AM If patient follows commands, proceed to weaning trial Pressure support 11/22, extubate when ready Continue antibiotics F/u cultures Bronchodilators Monitor renal function Monitor electrolytes Supplement as needed Pressors as needed for hemodynamic support To maintain a mean arterial pressure of 65 mmHg F/u GI DVT prophylaxis Critical care time 35 minutes Dietary Evaluation Review Comments: 1. Continue TPN to meet at least 75% estimated needs 2. Continue current POC Expected Outcomes/Goals: FU 2-3 days to meet adequate energy & protein within 7 days of NPO Plan discussed with: Other (Rn) CC Plasma Assessment Blood Product Administration S: [id number] VALENTE DEE MD October 11, 2024 17:24
--- NOTE | 2024-10-11 18:33 | DVH ---
Upper Extremity Venous Duplex bilaterally Clinical History: BUE swelling. R/O thrombosis Comparison: None Technique: Ultrasound bilateral upper extremity. Duplex Doppler evaluation of the venous system of the right and left lower neck and upper extremity including color Doppler and spectral/pulsed waveform analysis wa s performed. Findings: RIGHT The internal jugular vein NOT VISUALIZED The subclavian vein is patent on color Doppler evaluation without intraluminal thrombus and demonstra kourtney waveform variability. The visualized portion of the brachiocephalic vein is patent on color Doppler evaluation without intr aluminal thrombus and demonstrates waveform variability. The axillary vein demonstrates appropriate compressibility and waveform variability. The brachial veins demonstrate appropriate compressibility and patency on Doppler evaluation. The basilic vein demonstrates appropriate compressibility and patency on Doppler evaluation. The cephalic vein demonstrates NO FLOW AND IS NONCOMPRESSIBLE. ULNAR VEIN: Shows no flow and is noncompressible. LEFT The internal jugular vein demonstrates appropriate compressibility and waveform variability. The subclavian vein is patent on color Doppler evaluation without intraluminal thrombus and demonstra kourtney waveform variability. The visualized portion of the brachiocephalic vein is patent on color Doppler evaluation without intr aluminal thrombus and demonstrates waveform variability. The axillary vein demonstrates appropriate compressibility and waveform variability. The brachial veins demonstrate appropriate compressibility and patency on Doppler evaluation. The basilic vein demonstrates no flow and is noncompressible. LEFT RADIAL VEIN: No flow and is noncompressible The cephalic vein demonstrates no flow and is noncompressible, ULNAR VEIN: Demonstrates normal flow and compressibility Impression: 1. On the right the internal jugular vein is non visible. The right cephalic and ulnar veins showed n o flow and are noncompressible. 2. On the left the cephalic vein basilic vein and radial veins showed no flow and were noncompressibl e. 3. Zulay HUTCHINSON was made aware findings. HS:Y
[2024-10-11 19:12] LABS: Hematocrit 33.0 % (41.0-53.0); Hemoglobin 10.9 g/dL (13.5-17.5); Mean Corpuscular Hemoglobin 29.1 pg (28.0-32.0); Mean Corpuscular Volume 88.1 fL (80.0-100.0); Nucleated Red Blood Cells % 0.1 %
[2024-10-11 19:30] LABS: INR 1.08 (0.9-1.15); Partial Thromboplastin Time 31.4 SEC (24.5-34.5); Prothrombin Time 11.4 sec (9.3-11.8)
[2024-10-11] MEDS: HEPARIN DRIP/D5W 100UNITS/ML 250 ML IV SCH (20:39)
[2024-10-11] MEDS: TPN PER PHARMACY IV NR (22:06)
[2024-10-12] VITALS (108 sets, daily range): BP systolic 86–135; BP diastolic 34–57; PULSE 59–120; RESP 17–30; TEMP 96.6–99.9; O2SAT 96–100
[2024-10-12 02:59] LABS: Hematocrit 32.4 % (41.0-53.0); Hemoglobin 10.7 g/dL (13.5-17.5); Mean Corpuscular Hemoglobin 28.9 pg (28.0-32.0); Mean Corpuscular Volume 87.3 fL (80.0-100.0); Nucleated Red Blood Cells % 0.1 %
[2024-10-12 03:20] LABS: INR 1.11 (0.9-1.15); Partial Thromboplastin Time 55.5 SEC (24.5-34.5); Prothrombin Time 11.6 sec (9.3-11.8)
[2024-10-12 03:45] LABS: Alkaline Phosphatase 98 U/L (46-116); BUN/Creatinine Ratio 19.2 (10.0-20.0); Carbon Dioxide 21 mmol/L (20-31); Magnesium 2.0 mg/dL (1.6-2.6)
[2024-10-12 04:26] LABS: Alanine Aminotransferase 75 U/L (7-40); Albumin 2.3 g/dL (3.2-4.8); Bilirubin, Total 3.3 mg/dL (0.2-1.0); Blood Urea Nitrogen 56 mg/dL (9-23); Calcium 7.5 mg/dL (8.7-10.4); Glucose 132 mg/dL (74-106); Lipase 58 U/L (12-53); Total Protein 4.6 g/dL (5.7-8.2)
[2024-10-12 04:42] LABS: Anion Gap 9 (5-15); Chloride 105 mmol/L (98-107); Potassium 4.2 mmol/L (3.5-5.1); Sodium 135 mmol/L (136-145)
--- NOTE | 2024-10-12 07:05 | DVH ---
INDICATION: fu TECHNIQUE: Frontal view of the chest. COMPARISON: XY CHEST PORTABLE on DOS: 10/11/24, XY CHEST PORTABLE on DOS: 10/10/24, XY CHEST PORTABLE o n DOS: 10/09/24, XY CHEST PORTABLE on DOS: 10/09/24, XY CHEST PORTABLE on DOS: 10/08/24, XY CHEST PORTAB LE on DOS: 10/11/24 FINDINGS: Lines and tubes: Endotracheal tube in the mid thoracic trachea. Enteric tube crosses midline into the stomach. As central venous catheter is seen in the SVC. Cardiomediastinal silhouette: normal Pulmonary vasculature: normal Lung expansion: normal Lung airspace: Right basilar consolidation with small right pleural fusion. Lung interstitium: normal Pleura: normal Pneumothorax: no Bones: Unremarkable Other: no IMPRESSION: Endotracheal tube in the mid thoracic trachea. Enteric tube crosses midline into the stomach. As cent ral venous catheter is seen in the SVC. Right basilar consolidation with small right pleural fusion.
[2024-10-12 09:12] LABS: INR 1.11 (0.9-1.15); Partial Thromboplastin Time 56.9 SEC (24.5-34.5); Prothrombin Time 11.6 sec (9.3-11.8)
--- NOTE | 2024-10-12 09:22 | DVHPN2 ---
Subjective Intubated and sedated Reviewed: Care Plan, H&P, Labs, Medications, Previous Orders, Radiology, Other (Consultants) Changes from previous H/P or p: No Changes General: Per HPI Objective Vitals Vital Signs Date Time Temp Pulse Resp B/P (MAP) Pulse Ox O2 Delivery O2 Flow Rate FiO2 10/12/24 08:25 79 25 125/50 (75) 98 30 10/12/24 06:00 Mechanical Ventilator+ 10/12/24 04:00 97.3 97.3 Intake/Output Intake and Output 10/12/24 07:00 Intake Total 2825.024 ml Output Total 1270 ml Balance 1555.024 ml Intake Oral 0 ml IV Total 2825.024 ml Output Urine Total 875 ml Gastric Drainage Total 150 ml Drainage Total 140 ml Other 105 ml General Appearance: Other (Intubated and sedated) HEENT: Atraumatic Lungs: Other (Few crackles bilateral) Cardiovascular: Regular rate, Normal S2 (l) Abdomen: Other (Surgical binder) Medications Current Medications Medications Dose Ordered Sig/Wally Route Start Time Stop Time Status Last Admin Dose Admin Norepinephrine Bitartrate 250 ml @ 3.75 mls/hr Q24H IV 10/04/24 08:00 10/12/24 04:07 3.75 MLS/HR Fentanyl Citrate 250 ml @ 2.5 mls/hr Q24H IV 10/04/24 09:45 10/12/24 07:45 20 MLS/HR Ondansetron HCl 4 mg Q4HP PRN IV 10/04/24 11:45 Morphine Sulfate 2 mg Q4HPRN PRN IV 10/04/24 11:45 Nitroglycerin 0.4 mg Q5MINP PRN SL 10/04/24 11:45 Morphine Sulfate 2 mg Q30M PRN IV 10/04/24 11:45 Lorazepam 50 mg/ Sodium Chloride 50 ml @ 1 mls/hr Q24H IV 10/04/24 18:15 Cancel Midazolam HCl 50 ml @ 1 mls/hr Q24H IV 10/04/24 18:30 10/12/24 00:32 4 MLS/HR Vasopressin 20 units/Sodium Chloride 100 ml @ 12 mls/hr Q8H20M IV 10/04/24 20:30 10/06/24 22:26 12 MLS/HR Acetaminophen 650 mg Q6HPRN PRN ND 10/04/24 21:00 10/11/24 15:19 650 MG Amino Acids 0 ml @ 0 mls/hr PER PHARMACY IV 10/05/24 14:30 UNV Amino Acids 0 ml @ 0 mls/hr PER PHARMACY IV 10/05/24 14:30 Diagnostic Test (Pha) 1 strip Q6HR 10/05/24 18:00 10/12/24 05:46 1 STRIP Insulin Human Regular FOLLOW SLIDING SCALE Q6HR SC 10/05/24 18:00 10/06/24 23:42 2 UNITS Dextrose 50 ml UD IV 10/05/24 14:45 Pantoprazole Sodium 40 mg BID IV 10/07/24 10:00 10/11/24 22:08 40 MG Meropenem 50 ml @ 17 mls/hr Q12HR IV 10/07/24 10:00 UNV Micafungin Sodium 100 mg/Sodium Chloride 100 ml @ 100 mls/hr DAILY IV 10/07/24 10:00 10/11/24 10:08 100 MLS/HR Labetalol HCl 10 mg Q2HPRN PRN IV 10/08/24 09:30 Propofol 100 ml @ 2.181 mls/ hr Q24H IV 10/10/24 10:30 10/11/24 22:17 10.905 MLS/HR Meropenem 50 ml @ 16.6 mls/hr Q8H IV 10/10/24 18:00 10/12/24 02:28 16.6 MLS/HR Lactated Ringer's 1,000 ml @ 50 mls/hr Q20H IV 10/11/24 11:00 10/11/24 11:00 50 MLS/HR Sodium Acetate 40 meq/Calcium Gluconate 1.65 meq/Magnesium Sulfate 6 meq/ Multivitamins 10 ml/Insulin Human Regular 8 units/ Amino Acids/ Dextrose 1,235.1283 ml @ 51 mls/hr [id number] IV 10/11/24 22:00 10/12/24 21:59 10/11/24 22:06 51 MLS/HR Heparin Sodium/ Dextrose 250 ml @ 13 mls/hr [id number] IV 10/11/24 18:30 10/11/24 20:39 13 MLS/HR Laboratory Results Laboratory Tests 10/12/24 02:27 Chemistry Test 10/12/24 02:27 Albumin 2.3 g/dL (3.2-4.8) L Calcium Level 7.5 mg/dL (8.7-10.4) L Magnesium Level 2.0 mg/dL (1.6-2.6) Phosphorus Level 4.6 mg/dL (2.4-5.1) Total Protein 4.6 g/dL (5.7-8.2) L Coagulation Test 10/11/24 18:52 10/12/24 02:27 10/12/24 08:52 Prothrombin Time 11.4 sec (9.3-11.8) 11.6 sec (9.3-11.8) 11.6 sec (9.3-11.8) Prothrombin Time INR 1.08 (0.9-1.15) 1.11 (0.9-1.15) 1.11 (0.9-1.15) Activated Partial Thromboplast Time 31.4 SEC (24.5-34.5) 55.5 SEC (24.5-34.5) H 56.9 SEC (24.5-34.5) H Lipid panel Test 10/12/24 02:27 Lipase 58 U/L (12-53) H LFT Test 10/12/24 02:27 Alanine Aminotransferase (ALT) 75 U/L (7-40) H Alkaline Phosphatase 98 U/L (46-116) Aspartate Amino Transferase (AST) 37 U/L (13-40) Total Bilirubin 3.3 mg/dL (0.2-1.0) H Urinalysis Test 10/05/24 15:05 10/11/24 18:00 Urine Color Light-yellow (Yellow) Urine Clarity Hazy (Clear) H Urine pH 5.5 (5.0-9.0) Urine Specific Baudette 1.018 (1.001-1.035) Urine Protein 1+ (Negative) H Urine Ketones Negative (Negative) Urine Blood 3+ /uL (Negative) H Urine Nitrite Negative (Negative) Urine Bilirubin Negative (Negative) Urine Urobilinogen Normal mg/dL (Negative) Urine Leukocyte Esterase Negative /uL (Negative) Urine RBC 1 /hpf (0 - 3) Urine Microscopic WBC 9 /HPF (0-3) H Urine Squamous Epithelial Cells Few /hpf (<5) Urine Bacteria Few /hpf (None Seen) H Urine Mucus Few (None Seen) Urine Glucose Trace mg/dL (Normal) Urine Total Protein 85.0 mg/dL (1-14) H Urine Creatinine 48.05 mg/dL (30.0-125.0) Urine Sodium 76 mmol/L (40-220) Microbiology Microbiology Date/Time Source Procedure Growth Status 10/10/24 13:45 Aspirate Gram Stain - Final Resulted 10/10/24 13:45 Aspirate Body Fluid Culture - Preliminary Resulted 10/05/24 15:05 Voided Urine Urine Culture - Final Complete 10/04/24 17:10 Nose MRSA Screen - Final Complete 10/04/24 07:01 Blood Blood Culture - Final NO GROWTH AFTER 5 DAYS OF INCUBATION. Complete Assessment/Plan Assessment/Plan Acute respiratory failure Sepsis and septic shock Status post perforated gastric ulcer repair Cholecystitis status post cholangiogram/obstructed cystic duct Pneumonia Acute kidney injury /worsening History of CVA Elevated liver function tests Bilateral upper extremities deep venous thrombosis/right ulnar and left radial DVT Plan: Increase IV fluids. Repeat labs. Repeat x-ray. Repeat ABGs. Continue TPN. Monitor for blood pressure and oxygenation and urine output. Reduce Protonix to 40 mg daily due to the possible nephrotoxicity. IV heparin. Vasopressors as needed. Further plan per orders. Total critical care time 45 minutes Plan discussed with: Other (Nursing) My Orders Orders - PATSY LEWIS MD Procedure Category Date Status Time Chest Portable XY 10/12/24 Resulted 06:00 Abg W/ Co-Ox RT 10/12/24 Logged 06:00 Bi Lat Upper Dvt US 10/11/24 Resulted 17:27 Lactated Ringer's PHA 10/12/24 Logged 09:30 B-Type Natriuretic LAB 10/12/24 Logged Peptide 09:18 Complete Blood Count LAB 10/13/24 Verified 06:00 Comprehensive LAB 10/13/24 Verified Metabolic Panel 06:00 B-Type Natriuretic LAB 10/13/24 Verified Peptide 06:00 Chest Portable XY 10/13/24 Logged 06:00 Abg W/ Co-Ox RT 10/13/24 Logged 06:00 Pantoprazole PHA 10/12/24 Transmitted (Protonix) 10:00 Date of Service: October 12, 2024 Billing Provider: PATSY LEWIS MD Common Visit Codes: [id number] CARE 30-74 MIN PATSY LEWIS MD October 12, 2024 09:22
[2024-10-12 09:28] LABS: Base Excess -6.3 mmol/L (-2.0-3.0)
[2024-10-12] MEDS: LACTATED RINGER'S 1,000 ML IV SCH (09:30)
--- NOTE | 2024-10-12 10:25 | DVHPN2 ---
Progress Note - Dictate Date Seen: October 12, 2024 Medical Necessity Reason Pt with a Central, PICC or Fol: Yes The following are medically ne: Gómez Catheter Reason for gómez catheter: Strict I&O vital signs Vital Sign Date Time Temp Pulse Resp B/P (MAP) Pulse Ox O2 Delivery O2 Flow Rate FiO2 10/12/24 10:05 81 25 103/44 (63) 98 30 10/12/24 06:00 Mechanical Ventilator+ 10/12/24 04:00 97.3 97.3 Total Intake and Output 10/11/24 10/11/24 10/12/24 15:00 23:00 07:00 Intake Total 1126.611 ml 949.328 ml 749.085 ml Output Total 690 ml 580 ml Balance 1126.611 ml 259.328 ml 169.085 ml medications Current Medications Medications Dose Ordered Sig/Wally Route Start Time Stop Time Status Last Admin Dose Admin Norepinephrine Bitartrate 250 ml @ 3.75 mls/hr Q24H IV 10/04/24 08:00 10/12/24 04:07 3.75 MLS/HR Fentanyl Citrate 250 ml @ 2.5 mls/hr Q24H IV 10/04/24 09:45 10/12/24 07:45 20 MLS/HR Ondansetron HCl 4 mg Q4HP PRN IV 10/04/24 11:45 Morphine Sulfate 2 mg Q4HPRN PRN IV 10/04/24 11:45 Nitroglycerin 0.4 mg Q5MINP PRN SL 10/04/24 11:45 Morphine Sulfate 2 mg Q30M PRN IV 10/04/24 11:45 Lorazepam 50 mg/ Sodium Chloride 50 ml @ 1 mls/hr Q24H IV 10/04/24 18:15 Cancel Midazolam HCl 50 ml @ 1 mls/hr Q24H IV 10/04/24 18:30 10/12/24 00:32 4 MLS/HR Vasopressin 20 units/Sodium Chloride 100 ml @ 12 mls/hr Q8H20M IV 10/04/24 20:30 10/06/24 22:26 12 MLS/HR Acetaminophen 650 mg Q6HPRN PRN RI 10/04/24 21:00 10/11/24 15:19 650 MG Amino Acids 0 ml @ 0 mls/hr PER PHARMACY IV 10/05/24 14:30 UNV Amino Acids 0 ml @ 0 mls/hr PER PHARMACY IV 10/05/24 14:30 Diagnostic Test (Pha) 1 strip Q6HR 10/05/24 18:00 10/12/24 05:46 1 STRIP Insulin Human Regular FOLLOW SLIDING SCALE Q6HR SC 10/05/24 18:00 10/06/24 23:42 2 UNITS Dextrose 50 ml UD IV 10/05/24 14:45 Meropenem 50 ml @ 17 mls/hr Q12HR IV 10/07/24 10:00 UNV Micafungin Sodium 100 mg/Sodium Chloride 100 ml @ 100 mls/hr DAILY IV 10/07/24 10:00 10/11/24 10:08 100 MLS/HR Labetalol HCl 10 mg Q2HPRN PRN IV 10/08/24 09:30 Propofol 100 ml @ 2.181 mls/ hr Q24H IV 10/10/24 10:30 10/11/24 22:17 10.905 MLS/HR Sodium Acetate 40 meq/Calcium Gluconate 1.65 meq/Magnesium Sulfate 6 meq/ Multivitamins 10 ml/Insulin Human Regular 8 units/ Amino Acids/ Dextrose 1,235.1283 ml @ 51 mls/hr [id number] IV 10/11/24 22:00 10/12/24 21:59 10/11/24 22:06 51 MLS/HR Heparin Sodium/ Dextrose 250 ml @ 13 mls/hr [id number] IV 10/11/24 18:30 10/11/24 20:39 13 MLS/HR Lactated Ringer's 1,000 ml @ 75 mls/hr [id number] IV 10/12/24 09:30 Pantoprazole Sodium 40 mg DAILY IV 10/12/24 10:00 Meropenem 50 ml @ 16.6 mls/hr Q12H IV 10/12/24 14:00 laboratory and microbiology Laboratory Tests 10/12/24 02:27 Test 10/12/24 02:27 Range/Units Serum Glucose 132 H 74-106 mg/dL Assessment/Plan Impression Acute hypoxemic respiratory failure Perforated viscus Septic shock Smoker Patient seen and examined in ICU Events On mechanical ventilation S/p intubation PEEP 5, FiO2 40% S/p cholecystic drain placement S/p ex lap and repair Labs and imaging reviewed Ultrasound of the BUE shows sluggish flow and patient was started on Heparin drip ABG reviewed Management Vent support Titrate to maintain sats 90% or above Sedation holiday to evaluate neurological status If patient follows commands, proceed to weaning trial Pressure support 11/22, extubate when ready Continue antibiotics F/u cultures Bronchodilators Monitor renal function Monitor electrolytes Supplement as needed Pressors as needed for hemodynamic support To maintain a mean arterial pressure of 65 mmHg F/u GI DVT prophylaxis Critical care time 35 minutes Dietary Evaluation Review Comments: 1. Continue TPN to meet at least 75% estimated needs 2. Continue current POC Expected Outcomes/Goals: FU 2-3 days to meet adequate energy & protein within 7 days of NPO Plan discussed with: Other (Rn) CC Plasma Assessment Blood Product Administration S: [id number] VALENTE DEE MD October 12, 2024 10:25
[2024-10-12] MEDS: PANTOPRAZOLE 40 MG/10 ML VIAL INJ IV SCH (10:39)
--- NOTE | 2024-10-12 14:50 | DVHPN2 ---
Progress Note - Dictate Date Seen: October 12, 2024 Medical Necessity Reason Pt with a Central, PICC or Fol: Yes The following are medically ne: Gómez Catheter Reason for gómez catheter: Strict I&O Subjective Clinically unchanged vital signs Vital Sign Date Time Temp Pulse Resp B/P (MAP) Pulse Ox O2 Delivery O2 Flow Rate FiO2 10/12/24 14:38 104 26 116/40 (65) 98 30 10/12/24 06:00 Mechanical Ventilator+ 10/12/24 04:00 97.3 97.3 Total Intake and Output 10/11/24 10/11/24 10/12/24 15:00 23:00 07:00 Intake Total 1126.611 ml 949.328 ml 851.735 ml Output Total 690 ml 580 ml Balance 1126.611 ml 259.328 ml 271.735 ml medications Current Medications Medications Dose Ordered Sig/Wally Route Start Time Stop Time Status Last Admin Dose Admin Norepinephrine Bitartrate 250 ml @ 3.75 mls/hr Q24H IV 10/04/24 08:00 10/12/24 04:07 3.75 MLS/HR Fentanyl Citrate 250 ml @ 2.5 mls/hr Q24H IV 10/04/24 09:45 10/12/24 07:45 20 MLS/HR Ondansetron HCl 4 mg Q4HP PRN IV 10/04/24 11:45 Morphine Sulfate 2 mg Q4HPRN PRN IV 10/04/24 11:45 Nitroglycerin 0.4 mg Q5MINP PRN SL 10/04/24 11:45 Morphine Sulfate 2 mg Q30M PRN IV 10/04/24 11:45 Lorazepam 50 mg/ Sodium Chloride 50 ml @ 1 mls/hr Q24H IV 10/04/24 18:15 Cancel Midazolam HCl 50 ml @ 1 mls/hr Q24H IV 10/04/24 18:30 10/12/24 13:23 3 MLS/HR Vasopressin 20 units/Sodium Chloride 100 ml @ 12 mls/hr Q8H20M IV 10/04/24 20:30 10/06/24 22:26 12 MLS/HR Acetaminophen 650 mg Q6HPRN PRN GA 10/04/24 21:00 10/11/24 15:19 650 MG Amino Acids 0 ml @ 0 mls/hr PER PHARMACY IV 10/05/24 14:30 UNV Amino Acids 0 ml @ 0 mls/hr PER PHARMACY IV 10/05/24 14:30 Diagnostic Test (Pha) 1 strip Q6HR 10/05/24 18:00 10/12/24 12:40 1 STRIP Insulin Human Regular FOLLOW SLIDING SCALE Q6HR SC 10/05/24 18:00 10/12/24 12:37 2 UNITS Dextrose 50 ml UD IV 10/05/24 14:45 Meropenem 50 ml @ 17 mls/hr Q12HR IV 10/07/24 10:00 UNV Micafungin Sodium 100 mg/Sodium Chloride 100 ml @ 100 mls/hr DAILY IV 10/07/24 10:00 10/12/24 10:34 100 MLS/HR Labetalol HCl 10 mg Q2HPRN PRN IV 10/08/24 09:30 Propofol 100 ml @ 2.181 mls/ hr Q24H IV 10/10/24 10:30 10/12/24 13:38 10.905 MLS/HR Sodium Acetate 40 meq/Calcium Gluconate 1.65 meq/Magnesium Sulfate 6 meq/ Multivitamins 10 ml/Insulin Human Regular 8 units/ Amino Acids/ Dextrose 1,235.1283 ml @ 51 mls/hr [id number] IV 10/11/24 22:00 10/12/24 21:59 10/11/24 22:06 51 MLS/HR Heparin Sodium/ Dextrose 250 ml @ 13 mls/hr [id number] IV 10/11/24 18:30 10/12/24 13:41 13 MLS/HR Lactated Ringer's 1,000 ml @ 75 mls/hr [id number] IV 10/12/24 09:30 Pantoprazole Sodium 40 mg DAILY IV 10/12/24 10:00 10/12/24 10:39 40 MG Meropenem 50 ml @ 16.6 mls/hr Q12H IV 10/12/24 14:00 Sodium Acetate 80 meq/Calcium Gluconate 4.65 meq/Magnesium Sulfate 6 meq/ Multivitamins 10 ml/Insulin Human Regular 8 units/ Amino Acids/ Dextrose 1,461.58 ml @ 61 mls/hr [id number] IV 10/12/24 22:00 10/13/24 21:59 objective Gen: nad, intubated heent: nc/at, mmm lungs: Occasional rhonchi cvs: no rub ext: + edema laboratory and microbiology Laboratory Tests 10/12/24 02:27 Test 10/12/24 02:27 Range/Units Serum Glucose 132 H 74-106 mg/dL Assessment/Plan Problem List/Assessment/Plan Acute kidney injury likely ATN, FeNa ,> 2% Acute respiratory failure, patient intubated on ventilator Hemodynamic shock acute blood loss anemia Perforated gastric ulcer status post surgery 10/04 Hyponatremia resolved Pneumonia Sepsis Hypomagnesemia Acute blood loss anemia status post PRBC Recommendations - slight decline in GFR - trial of limited fluid challenge and we will reassess Dietary Evaluation Review Comments: 1. Continue TPN to meet at least 75% estimated needs 2. Continue current POC Expected Outcomes/Goals: FU 2-3 days to meet adequate energy & protein within 7 days of NPO Plan discussed with: Other CC Plasma Assessment Blood Product Administration S: [id number] PEARL RUSSELL MD October 12, 2024 14:50
[2024-10-12] MEDS: MEROPENEM 1GM IVPB 50 ML IV SCH (14:51)
[2024-10-12 15:49] LABS: INR 1.09 (0.9-1.15); Partial Thromboplastin Time 49.3 SEC (24.5-34.5); Prothrombin Time 11.5 sec (9.3-11.8)
[2024-10-12] MEDS: SODIUM CHLORIDE 0.9% 500 ML IV ONE (16:08)
[2024-10-12] MEDS: SODIUM CHLORIDE 0.9% 1,000 ML IV ONE (16:52)
[2024-10-12] MEDS ORDERED: POTASSIUM CHLORIDE 60 MEQ, LIDOCAINE 1% (LOCAL ANESTH.) 6 ML in SODIUM CHL 0.9% 500 ML IV ONE (20:15)
[2024-10-12] MEDS: TPN PER PHARMACY IV NR (22:09)
[2024-10-13] VITALS (106 sets, daily range): BP systolic 83–130; BP diastolic 26–81; PULSE 96–117; RESP 14–32; TEMP 98.6–99.1; O2SAT 90–98
[2024-10-13] LABS: INR 1.12 (0.9-1.15); Prothrombin Time 11.7 sec (9.3-11.8)
[2024-10-13 00:02] LABS: Partial Thromboplastin Time 83.8 SEC (24.5-34.5)
[2024-10-13] MEDS: LACTATED RINGER'S 1,000 ML IV SCH (02:22)
[2024-10-13] MEDS: BUMETANIDE 2.5mg/10ml (0.25 mg/ml) INJ IV ONE (04:32)
[2024-10-13 04:40] LABS: Hematocrit 34.5 % (41.0-53.0); Hemoglobin 11.1 g/dL (13.5-17.5); Mean Corpuscular Hemoglobin 28.5 pg (28.0-32.0); Mean Corpuscular Volume 88.7 fL (80.0-100.0); Nucleated Red Blood Cells % 0.0 %
[2024-10-13 04:41] LABS: Alkaline Phosphatase 104 U/L (46-116); Anion Gap 10 (5-15); BUN/Creatinine Ratio 17.6 (10.0-20.0); Chloride 104 mmol/L (98-107); Magnesium 2.0 mg/dL (1.6-2.6); Potassium 5.0 mmol/L (3.5-5.1)
[2024-10-13 04:45] LABS: Alanine Aminotransferase 55 U/L (7-40); Albumin 2.2 g/dL (3.2-4.8); Bilirubin, Total 2.9 mg/dL (0.2-1.0); Blood Urea Nitrogen 71 mg/dL (9-23); Calcium 7.7 mg/dL (8.7-10.4); Carbon Dioxide 20 mmol/L (20-31); Glucose 152 mg/dL (74-106); Sodium 134 mmol/L (136-145); Total Protein 4.6 g/dL (5.7-8.2)
[2024-10-13] MEDS: SODIUM BICARB 8.4% 50Meq/50ml SYR Vial IV ONE ×3 (05:19→18:47)
[2024-10-13 05:27] LABS: Base Excess -11.9 mmol/L (-2.0-3.0)
--- NOTE | 2024-10-13 05:54 | DVH ---
INDICATION: fu TECHNIQUE: Frontal view of the chest. COMPARISON: XY CHEST PORTABLE on DOS: 10/12/24, XY CHEST PORTABLE on DOS: 10/11/24, XY CHEST PORTABLE o n DOS: 10/10/24, XY CHEST PORTABLE on DOS: 10/09/24, XY CHEST PORTABLE on DOS: 10/09/24, XY CHEST PORTAB LE on DOS: 10/12/24 FINDINGS: Lines and tubes: Endotracheal tube in the mid thoracic trachea. Enteric tube crosses midline into the stomach. As central venous catheter is seen in the SVC. Cardiomediastinal silhouette: normal Pulmonary vasculature: normal Lung expansion: normal Lung airspace: Right basilar consolidation with small right pleural fusion. Lung interstitium: normal Pleura: normal Pneumothorax: no Bones: Unremarkable Other: no IMPRESSION: Endotracheal tube in the mid thoracic trachea. Enteric tube crosses midline into the stomach. As cent ral venous catheter is seen in the SVC. Right basilar consolidation with small right pleural fusion.
[2024-10-13 06:31] LABS: INR 1.13 (0.9-1.15); Partial Thromboplastin Time 65.5 SEC (24.5-34.5); Prothrombin Time 11.8 sec (9.3-11.8)
[2024-10-13 07:56] LABS: Base Excess -5.6 mmol/L (-2.0-3.0)
--- NOTE | 2024-10-13 09:15 | DVHPN2 ---
Subjective Patient intubated and sedated Reviewed: Care Plan, H&P, Labs, Medications, Previous Orders, Radiology, Other (Consultants) Changes from previous H/P or p: No Changes General: Per HPI Objective Vitals Vital Signs Date Time Temp Pulse Resp B/P (MAP) Pulse Ox O2 Delivery O2 Flow Rate FiO2 10/13/24 08:29 105/53 10/13/24 07:41 109 24 94 30 10/13/24 06:00 Mechanical Ventilator+ 10/13/24 04:00 98.8 98.8 Intake/Output Intake and Output 10/13/24 07:00 Intake Total 4548.525 ml Output Total 1115 ml Balance 3433.525 ml Intake Oral 0 ml IV Total 4548.525 ml Output Urine Total 515 ml Gastric Drainage Total 300 ml Drainage Total 200 ml Other 100 ml General Appearance: severe distress, Other (Intubated and sedated) HEENT: Atraumatic, PERRLA Lungs: Other (Decreased breath sounds in right base. Mechanical ventilation) Cardiovascular: Regular rate, Normal S2 (l) Abdomen: Other (Abdominal dry and intact. KWAN drains with serosanguineous fluid. Copious amount of NG secretions. Cholecystostomy tube with bilious secretions) Skin: Wounds (See nurse notes and pictures), Other (Surgical wounds well approximated) Psych/Mental Status: Other (Unable to assess) Medications Current Medications Medications Dose Ordered Sig/Wally Route Start Time Stop Time Status Last Admin Dose Admin Norepinephrine Bitartrate 250 ml @ 3.75 mls/hr Q24H IV 10/04/24 08:00 10/13/24 08:00 7.5 MLS/HR Fentanyl Citrate 250 ml @ 2.5 mls/hr Q24H IV 10/04/24 09:45 10/13/24 07:05 22.5 MLS/HR Ondansetron HCl 4 mg Q4HP PRN IV 10/04/24 11:45 Morphine Sulfate 2 mg Q4HPRN PRN IV 10/04/24 11:45 Nitroglycerin 0.4 mg Q5MINP PRN SL 10/04/24 11:45 Morphine Sulfate 2 mg Q30M PRN IV 10/04/24 11:45 Lorazepam 50 mg/ Sodium Chloride 50 ml @ 1 mls/hr Q24H IV 10/04/24 18:15 Cancel Midazolam HCl 50 ml @ 1 mls/hr Q24H IV 10/04/24 18:30 10/12/24 18:29 1 MLS/HR Vasopressin 20 units/Sodium Chloride 100 ml @ 12 mls/hr Q8H20M IV 10/04/24 20:30 10/06/24 22:26 12 MLS/HR Acetaminophen 650 mg Q6HPRN PRN [place] 10/04/24 21:00 10/11/24 15:19 650 MG Amino Acids 0 ml @ 0 mls/hr PER PHARMACY IV 10/05/24 14:30 UNV Amino Acids 0 ml @ 0 mls/hr PER PHARMACY IV 10/05/24 14:30 Diagnostic Test (Pha) 1 strip Q6HR 10/05/24 18:00 10/13/24 06:27 1 STRIP Insulin Human Regular FOLLOW SLIDING SCALE Q6HR SC 10/05/24 18:00 10/13/24 00:29 2 UNITS Dextrose 50 ml UD IV 10/05/24 14:45 Meropenem 50 ml @ 17 mls/hr Q12HR IV 10/07/24 10:00 UNV Micafungin Sodium 100 mg/Sodium Chloride 100 ml @ 100 mls/hr DAILY IV 10/07/24 10:00 10/12/24 10:34 100 MLS/HR Labetalol HCl 10 mg Q2HPRN PRN IV 10/08/24 09:30 Propofol 100 ml @ 2.181 mls/ hr Q24H IV 10/10/24 10:30 10/13/24 08:29 6.543 MLS/HR Heparin Sodium/ Dextrose 250 ml @ 13 mls/hr [id number] IV 10/11/24 18:30 10/13/24 09:06 13 MLS/HR Pantoprazole Sodium 40 mg DAILY IV 10/12/24 10:00 10/12/24 10:39 40 MG Meropenem 50 ml @ 16.6 mls/hr Q12H IV 10/12/24 14:00 10/13/24 01:51 16.6 MLS/HR Sodium Acetate 80 meq/Calcium Gluconate 4.65 meq/Magnesium Sulfate 6 meq/ Multivitamins 10 ml/Insulin Human Regular 8 units/ Amino Acids/ Dextrose 1,461.58 ml @ 61 mls/hr [id number] IV 10/12/24 22:00 10/13/24 21:59 10/12/24 22:09 61 MLS/HR Linezolid 300 ml @ 150 mls/hr Q12HR IV 10/13/24 10:00 Laboratory Results Laboratory Tests 10/13/24 04:00 Chemistry Test 10/13/24 04:00 Albumin 2.2 g/dL (3.2-4.8) L Calcium Level 7.7 mg/dL (8.7-10.4) L Magnesium Level 2.0 mg/dL (1.6-2.6) Phosphorus Level 5.8 mg/dL (2.4-5.1) H Total Protein 4.6 g/dL (5.7-8.2) L Coagulation Test 10/12/24 14:58 10/12/24 23:18 10/13/24 06:00 Prothrombin Time 11.5 sec (9.3-11.8) 11.7 sec (9.3-11.8) 11.8 sec (9.3-11.8) Prothrombin Time INR 1.09 (0.9-1.15) 1.12 (0.9-1.15) 1.13 (0.9-1.15) Activated Partial Thromboplast Time 49.3 SEC (24.5-34.5) H 83.8 SEC (24.5-34.5) *H 65.5 SEC (24.5-34.5) H Cardiac Markers Test 10/13/24 04:00 B-Type Natriuretic Peptide 93.62 pg/mL (0-100) LFT Test 10/13/24 04:00 Alanine Aminotransferase (ALT) 55 U/L (7-40) H Alkaline Phosphatase 104 U/L (46-116) Aspartate Amino Transferase (AST) 36 U/L (13-40) Total Bilirubin 2.9 mg/dL (0.2-1.0) H Urinalysis Test 10/05/24 15:05 10/11/24 18:00 Urine Color Light-yellow (Yellow) Urine Clarity Hazy (Clear) H Urine pH 5.5 (5.0-9.0) Urine Specific [place] 1.018 (1.001-1.035) Urine Protein 1+ (Negative) H Urine Ketones Negative (Negative) Urine Blood 3+ /uL (Negative) H Urine Nitrite Negative (Negative) Urine Bilirubin Negative (Negative) Urine Urobilinogen Normal mg/dL (Negative) Urine Leukocyte Esterase Negative /uL (Negative) Urine RBC 1 /hpf (0 - 3) Urine Microscopic WBC 9 /HPF (0-3) H Urine Squamous Epithelial Cells Few /hpf (<5) Urine Bacteria Few /hpf (None Seen) H Urine Mucus Few (None Seen) Urine Glucose Trace mg/dL (Normal) Urine Total Protein 85.0 mg/dL (1-14) H Urine Creatinine 48.05 mg/dL (30.0-125.0) Urine Sodium 76 mmol/L (40-220) Blood Gas Results Test 10/12/24 09:18 10/13/24 04:48 10/13/24 07:46 Arterial Blood pH 7.341 (7.350-7.450) 7.197 (7.350-7.450) 7.256 (7.350-7.450) FiO2 % 30.0 30.0 30.0 Microbiology Microbiology Date/Time Source Procedure Growth Status 10/10/24 13:45 Aspirate Gram Stain - Final Resulted 10/10/24 13:45 Aspirate Body Fluid Culture - Preliminary Resulted 10/05/24 15:05 Voided Urine Urine Culture - Final Complete 10/04/24 17:10 Nose MRSA Screen - Final Complete 10/04/24 07:01 Blood Blood Culture - Final NO GROWTH AFTER 5 DAYS OF INCUBATION. Complete Labs and/or images reviewed: Labs reviewed by me, Image(s) reviewed by me Assessment/Plan Assessment/Plan Impression: -severe septic shock -pneumoperitoneum secondary to perforated gastric ulcer -acute kidney injury, hemodynamically mediated, probable VMN -acute hypoxic respiratory failure -shock liver -nicotine dependence -history of CVA Plan: Events: Patient is status post cholecystostomy tube placement. LFTs decreasing. Patient now with worsening hypercarbic respiratory failure, septic shock, with significant spike in white blood cell count. Patient also now with worsening renal function. -change antimicrobial coursed to Meropenem, micafungin, add Zyvox -TPN -norepinephrine to keep map greater than 65 mmHg -Protonix 40 mg IV twice a day -further recommendations per surgical consultation -continue current sedation -add q.6 duo nebs with Mucomyst -chest percussion -chest ultrasound to rule out possible right lung effusion. -repeat labs, chest x-ray, ABG in a.m. Critical care time spent with patient discussing and formulating plan of care: 40 minutes. This does not include time spent performing procedures. This medical document was created using an electronic medical record system with [employer] system. Although this document has been carefully reviewed, there may still be some phonetic and typographical errors. These areas are purely typographical due to imperfections of the software programs, and do not reflect any compromise in the patient's medical care. Plan discussed with: Patient, Other (RN) My Orders Orders - CHEYENNE PIKE NP Procedure Category Date Status Time Meropenem 1gm Ivpb PHA 10/12/24 In Process (Merrem 1gm/ Ns) 14:00 Blood Culture HOLA 10/13/24 Logged 08:29 Urine Bacterial HOLA 10/13/24 Logged Culture 08:29 Respiratory Culture HOLA 10/13/24 Logged W/ Gs 08:29 Linezolid 600mg/300ml PHA 10/13/24 In Process (Zyvox) 10:00 Chest Portable XY 10/14/24 Logged 05:00 Chest Portable XY 10/15/24 Logged 05:00 Chest Portable XY 10/16/24 Logged 05:00 Complete Blood Count LAB 10/14/24 Verified 05:00 Complete Blood Count LAB 10/15/24 Verified 05:00 Complete Blood Count LAB 10/16/24 Verified 05:00 Date of Service: October 13, 2024 Billing Provider: CHEYENNE PIKE NP Common Visit Codes: [id number] CARE 30-74 MIN CHEYENNE PIKE NP October 13, 2024 09:15
--- NOTE | 2024-10-13 09:59 | DVH ---
US CHEST ULTRASOUND, HISTORY: Right pleural effusion COMPARISON(S): None TECHNICAL DATA: Transverse and longitudinal images are obtained of the chest. FINDING: IMPRESSION(S): Large right pleural effusion. Small left pleural effusion.
[2024-10-13] MEDS: LINEZOLID 600MG/300ML 300 ML IV SCH (10:16)
[2024-10-13 10:40] LABS: Base Excess -7.3 mmol/L (-2.0-3.0)
[2024-10-13] MEDS: ACETYLCYSTEINE 10 %(100MG/ML) SOL 4ML NEB SCH (11:57)
[2024-10-13] MEDS: IPRATROPIUM BROM 0.5 MG/2.5ML INH SOL NEB SCH (11:57)
[2024-10-13] MEDS: LEVALBUTEROL HCL 1.25 MG/3 ML NEB NEB SCH (11:57)
[2024-10-13] MEDS: MEROPENEM 500MG IVPB 50 ML IV SCH (14:00)
--- NOTE | 2024-10-13 14:32 | DVH ---
BILATERAL Lower Extremity Arterial Duplex Date: 10/13/2024 11:48 AM Clinical History: PAD Comparison: None Technique: Ultrasound bilateral lower extremities arterial duplex. Duplex Doppler evaluation including color Do ppler and spectral/pulsed waveform analysis of the lower extremity arteries was performed. Finding: RIGHT: Peak systolic velocities are as follows: [employer] 121 cm/s Deep femoral 98 cm/s SFA proximal 75 cm/s SFA mid-portion 73 cm/s SFA distal 66 cm/s Popliteal 60 cm/s Posterior tibial 56 cm/s Dorsalis pedis 50 cm/s The waveforms are triphasic waveform throughout. LEFT: Peak systolic velocities are as follows: [employer] 102 cm/s Deep femoral 50 cm/s SFA proximal 65 cm/s SFA mid-portion 69 cm/s SFA distal 48 cm/s Popliteal 69 cm/s Posterior tibial 55 cm/s Dorsalis pedis 32 cm/s The waveforms are triphasic waveform throughout. REFERENCE VALUES, [facility] ([facility]) vascular Imaging Lab Criteria: Peak systolic velocity ranges (in cm/sec) are as follows: <150 cm/s - <20 % stenosis 150-200 cm/s - 20-49% stenosis 200-300 cm/s - 50-75% stenosis >300 cm/s -> 75% stenosis IMPRESSION: 1. There is no evidence for peripheral vascular insufficiency in the right lower extremity. 2. There is no evidence for peripheral vascular insufficiency in the left lower extremity. 3. No significant focal stenosis is identified.
[2024-10-13 14:41] LABS: INR 1.13 (0.9-1.15); Partial Thromboplastin Time 60.3 SEC (24.5-34.5); Prothrombin Time 11.8 sec (9.3-11.8)
--- NOTE | 2024-10-13 14:42 | DVHPN2 ---
Progress Note - Dictate Date Seen: October 13, 2024 Medical Necessity Reason Pt with a Central, PICC or Fol: Yes The following are medically ne: Gómez Catheter Reason for gómez catheter: Strict I&O Subjective Concern for volume overload overnight. Fluids were discontinued by this copy writer, I had also ordered a dose of IV Bumex to be given this morning. IV bicarb two ampules were pushed this morning for acidemia. vital signs Vital Sign Date Time Temp Pulse Resp B/P (MAP) Pulse Ox O2 Delivery O2 Flow Rate FiO2 10/13/24 14:28 116 26 116/63 (80) 93 70 10/13/24 14:00 Mechanical Ventilator+ 10/13/24 12:00 98.8 98.8 Total Intake and Output 10/12/24 10/12/24 10/13/24 15:00 23:00 07:00 Intake Total 883.024 ml 2279.75 ml 1385.751 ml Output Total 590 ml 525 ml Balance 883.024 ml 1689.75 ml 860.751 ml medications Current Medications Medications Dose Ordered Sig/Wally Route Start Time Stop Time Status Last Admin Dose Admin Norepinephrine Bitartrate 250 ml @ 3.75 mls/hr Q24H IV 10/04/24 08:00 10/13/24 08:00 7.5 MLS/HR Fentanyl Citrate 250 ml @ 2.5 mls/hr Q24H IV 10/04/24 09:45 10/13/24 07:05 22.5 MLS/HR Ondansetron HCl 4 mg Q4HP PRN IV 10/04/24 11:45 Morphine Sulfate 2 mg Q4HPRN PRN IV 10/04/24 11:45 Nitroglycerin 0.4 mg Q5MINP PRN SL 10/04/24 11:45 Morphine Sulfate 2 mg Q30M PRN IV 10/04/24 11:45 Lorazepam 50 mg/ Sodium Chloride 50 ml @ 1 mls/hr Q24H IV 10/04/24 18:15 Cancel Midazolam HCl 50 ml @ 1 mls/hr Q24H IV 10/04/24 18:30 10/12/24 18:29 1 MLS/HR Vasopressin 20 units/Sodium Chloride 100 ml @ 12 mls/hr Q8H20M IV 10/04/24 20:30 10/06/24 22:26 12 MLS/HR Acetaminophen 650 mg Q6HPRN PRN [place] 10/04/24 21:00 10/11/24 15:19 650 MG Amino Acids 0 ml @ 0 mls/hr PER PHARMACY IV 10/05/24 14:30 UNV Amino Acids 0 ml @ 0 mls/hr PER PHARMACY IV 10/05/24 14:30 Diagnostic Test (Pha) 1 strip Q6HR 10/05/24 18:00 10/13/24 12:02 1 STRIP Insulin Human Regular FOLLOW SLIDING SCALE Q6HR SC 10/05/24 18:00 10/13/24 12:04 2 UNITS Dextrose 50 ml UD IV 10/05/24 14:45 Meropenem 50 ml @ 17 mls/hr Q12HR IV 10/07/24 10:00 UNV Micafungin Sodium 100 mg/Sodium Chloride 100 ml @ 100 mls/hr DAILY IV 10/07/24 10:00 10/13/24 10:15 100 MLS/HR Labetalol HCl 10 mg Q2HPRN PRN IV 10/08/24 09:30 Propofol 100 ml @ 2.181 mls/ hr Q24H IV 10/10/24 10:30 10/13/24 08:29 6.543 MLS/HR Heparin Sodium/ Dextrose 250 ml @ 13 mls/hr [id number] IV 10/11/24 18:30 10/13/24 09:06 13 MLS/HR Pantoprazole Sodium 40 mg DAILY IV 10/12/24 10:00 10/13/24 10:15 40 MG Sodium Acetate 80 meq/Calcium Gluconate 4.65 meq/Magnesium Sulfate 6 meq/ Multivitamins 10 ml/Insulin Human Regular 8 units/ Amino Acids/ Dextrose 1,461.58 ml @ 61 mls/hr [id number] IV 10/12/24 22:00 10/13/24 21:59 10/12/24 22:09 61 MLS/HR Linezolid 300 ml @ 150 mls/hr Q12HR IV 10/13/24 10:00 10/13/24 10:16 150 MLS/HR Acetylcysteine 100 mg Q6HR NEB 10/13/24 12:00 10/15/24 06:01 10/13/24 11:57 100 MG Levalbuterol HCl 0.625 mg Q6HR NEB 10/13/24 12:00 10/13/24 11:57 0.625 MG Ipratropium [place] 0.5 mg Q6HR NEB 10/13/24 12:00 10/13/24 11:57 0.5 MG Sodium Acetate 100 meq/Calcium Gluconate 4.65 meq/Magnesium Sulfate 8 meq/ Multivitamins 10 ml/Amino Acids/ Dextrose/Purified [place] 1,272 ml @ 53 mls/hr Q24H IV 10/13/24 22:00 10/14/24 21:59 Meropenem 50 ml @ 17 mls/hr Q12H IV 10/13/24 14:00 objective Gen: nad, intubated heent: nc/at, mmm lungs: Occasional rhonchi cvs: no rub ext: + edema laboratory and microbiology Laboratory Tests 10/13/24 04:00 Test 10/13/24 04:00 Range/Units Serum Glucose 152 H 74-106 mg/dL Assessment/Plan Problem List/Assessment/Plan Acute kidney injury likely ATN, FeNa ,> 2% Acute respiratory failure, patient intubated on ventilator Hemodynamic shock acute blood loss anemia Perforated gastric ulcer status post surgery 10/04 Hyponatremia resolved Pneumonia Sepsis Hypomagnesemia Acute blood loss anemia status post PRBC Recommendations - loop diuretic infusion to augment urine volumes - may not be efficacious if patient is progressing to more significant ischemic ATN - daily evaluation for kidney replacement therapy. Dietary Evaluation Review Comments: 1. Continue TPN to meet at least 75% estimated needs 2. Continue current POC Expected Outcomes/Goals: FU 2-3 days to meet adequate energy & protein within 7 days of NPO Plan discussed with: Other CC Plasma Assessment Blood Product Administration S: [id number] PEARL RUSSELL MD October 13, 2024 14:41
[2024-10-13] MEDS: BUMETANIDE INJECTION 25 MG in GIVE UN-DILUTED 0 ML IV SCH (14:45)
--- NOTE | 2024-10-13 16:21 | DVHPN2 ---
Progress Note - Dictate Date Seen: October 13, 2024 Medical Necessity Reason Pt with a Central, PICC or Fol: Yes The following are medically ne: Gómez Catheter Reason for gómez catheter: Strict I&O vital signs Vital Sign Date Time Temp Pulse Resp B/P (MAP) Pulse Ox O2 Delivery O2 Flow Rate FiO2 10/13/24 16:08 116 26 102/60 (74) 92 60 10/13/24 14:00 Mechanical Ventilator+ 10/13/24 12:00 98.8 98.8 Total Intake and Output 10/12/24 10/12/24 10/13/24 15:00 23:00 07:00 Intake Total 883.024 ml 2279.75 ml 1385.751 ml Output Total 590 ml 525 ml Balance 883.024 ml 1689.75 ml 860.751 ml medications Current Medications Medications Dose Ordered Sig/Wally Route Start Time Stop Time Status Last Admin Dose Admin Norepinephrine Bitartrate 250 ml @ 3.75 mls/hr Q24H IV 10/04/24 08:00 10/13/24 08:00 7.5 MLS/HR Fentanyl Citrate 250 ml @ 2.5 mls/hr Q24H IV 10/04/24 09:45 10/13/24 07:05 22.5 MLS/HR Ondansetron HCl 4 mg Q4HP PRN IV 10/04/24 11:45 Morphine Sulfate 2 mg Q4HPRN PRN IV 10/04/24 11:45 Nitroglycerin 0.4 mg Q5MINP PRN SL 10/04/24 11:45 Morphine Sulfate 2 mg Q30M PRN IV 10/04/24 11:45 Lorazepam 50 mg/ Sodium Chloride 50 ml @ 1 mls/hr Q24H IV 10/04/24 18:15 Cancel Midazolam HCl 50 ml @ 1 mls/hr Q24H IV 10/04/24 18:30 10/12/24 18:29 1 MLS/HR Vasopressin 20 units/Sodium Chloride 100 ml @ 12 mls/hr Q8H20M IV 10/04/24 20:30 10/06/24 22:26 12 MLS/HR Acetaminophen 650 mg Q6HPRN PRN [place] 10/04/24 21:00 10/11/24 15:19 650 MG Amino Acids 0 ml @ 0 mls/hr PER PHARMACY IV 10/05/24 14:30 UNV Amino Acids 0 ml @ 0 mls/hr PER PHARMACY IV 10/05/24 14:30 Diagnostic Test (Pha) 1 strip Q6HR 10/05/24 18:00 10/13/24 12:02 1 STRIP Insulin Human Regular FOLLOW SLIDING SCALE Q6HR SC 10/05/24 18:00 10/13/24 12:04 2 UNITS Dextrose 50 ml UD IV 10/05/24 14:45 Meropenem 50 ml @ 17 mls/hr Q12HR IV 10/07/24 10:00 UNV Micafungin Sodium 100 mg/Sodium Chloride 100 ml @ 100 mls/hr DAILY IV 10/07/24 10:00 10/13/24 10:15 100 MLS/HR Labetalol HCl 10 mg Q2HPRN PRN IV 10/08/24 09:30 Propofol 100 ml @ 2.181 mls/ hr Q24H IV 10/10/24 10:30 10/13/24 08:29 6.543 MLS/HR Heparin Sodium/ Dextrose 250 ml @ 13 mls/hr [id number] IV 10/11/24 18:30 10/13/24 09:06 13 MLS/HR Pantoprazole Sodium 40 mg DAILY IV 10/12/24 10:00 10/13/24 10:15 40 MG Sodium Acetate 80 meq/Calcium Gluconate 4.65 meq/Magnesium Sulfate 6 meq/ Multivitamins 10 ml/Insulin Human Regular 8 units/ Amino Acids/ Dextrose 1,461.58 ml @ 61 mls/hr [id number] IV 10/12/24 22:00 10/13/24 21:59 10/12/24 22:09 61 MLS/HR Linezolid 300 ml @ 150 mls/hr Q12HR IV 10/13/24 10:00 10/13/24 10:16 150 MLS/HR Acetylcysteine 100 mg Q6HR NEB 10/13/24 12:00 10/15/24 06:01 10/13/24 11:57 100 MG Levalbuterol HCl 0.625 mg Q6HR NEB 10/13/24 12:00 10/13/24 11:57 0.625 MG Ipratropium [place] 0.5 mg Q6HR NEB 10/13/24 12:00 10/13/24 11:57 0.5 MG Sodium Acetate 100 meq/Calcium Gluconate 4.65 meq/Magnesium Sulfate 8 meq/ Multivitamins 10 ml/Amino Acids/ Dextrose/Purified Water 1,272 ml @ 53 mls/hr Q24H IV 10/13/24 22:00 10/14/24 21:59 Meropenem 50 ml @ 17 mls/hr Q12H IV 10/13/24 14:00 Bumetanide 25 mg/ Miscellaneous 100 ml @ 4 mls/hr Q24H IV 10/13/24 14:45 laboratory and microbiology Laboratory Tests 10/13/24 04:00 Test 10/13/24 04:00 Range/Units Serum Glucose 152 H 74-106 mg/dL Assessment/Plan Impression Acute hypoxemic respiratory failure Perforated viscus Septic shock Smoker Patient seen and examined in ICU Events On mechanical ventilation S/p intubation PEEP 5, FiO2 40% On Heparin drip S/p cholecystic drain placement S/p ex lap and repair Labs and imaging reviewed Chest x-ray shows large right pleural effusions ABG reviewed Management Vent support Titrate to maintain sats 90% or above Sedation holiday to evaluate neurological status If patient follows commands, proceed to weaning trial Pressure support 11/22, extubate when ready Continue antibiotics F/u cultures Bronchodilators Monitor renal function Monitor electrolytes Supplement as needed Pressors as needed for hemodynamic support To maintain a mean arterial pressure of 65 mmHg F/u GI Hold heparin overnight Will consider thoracentesis in AM DVT prophylaxis Critical care time 35 minutes Dietary Evaluation Review Comments: 1. Continue TPN to meet at least 75% estimated needs 2. Continue current POC Expected Outcomes/Goals: FU 2-3 days to meet adequate energy & protein within 7 days of NPO Plan discussed with: Other (Rn) CC Plasma Assessment Blood Product Administration S: [id number] VALENTE DEE MD October 13, 2024 16:21
[2024-10-13 17:18] LABS: Base Excess -7.3 mmol/L (-2.0-3.0)
[2024-10-13] MEDS: SODIUM BICARB 50mEq/50ml Vial 50 ML in SOD CHL 0.45% 1,000 ML IV ONE (18:47)
[2024-10-13 20:11] LABS: Base Excess -3.2 mmol/L (-2.0-3.0)
[2024-10-13] MEDS: TPN PER PHARMACY IV NR (21:51)
[2024-10-14] VITALS (112 sets, daily range): BP systolic 76–241; BP diastolic 13–110; PULSE 75–102; RESP 25–28; TEMP 97.4–98.4; O2SAT 81–100
[2024-10-14 03:57] LABS: Hematocrit 34.3 % (41.0-53.0); Hemoglobin 11.1 g/dL (13.5-17.5); Mean Corpuscular Hemoglobin 28.5 pg (28.0-32.0); Mean Corpuscular Volume 87.8 fL (80.0-100.0)
--- NOTE | 2024-10-14 04:20 | DVH ---
INDICATION: pna TECHNIQUE: Frontal view of the chest. COMPARISON: XY CHEST PORTABLE on DOS: 10/13/24, XY CHEST PORTABLE on DOS: 10/12/24, XY CHEST PORTABLE o n DOS: 10/11/24, XY CHEST PORTABLE on DOS: 10/10/24, XY CHEST PORTABLE on DOS: 10/09/24, XY CHEST PORTAB LE on DOS: 10/13/24 FINDINGS: Lines and tubes: Endotracheal tube in the mid thoracic trachea. Enteric tube crosses midline into the stomach. As central venous catheter is seen in the SVC. Cardiomediastinal silhouette: normal Pulmonary vasculature: normal Lung expansion: normal Lung airspace: Right basilar consolidation with small right pleural fusion. Lung interstitium: normal Pleura: normal Pneumothorax: no Bones: Unremarkable Other: no IMPRESSION: Endotracheal tube in the mid thoracic trachea. Enteric tube crosses midline into the stomach. As cent ral venous catheter is seen in the SVC. Right basilar consolidation with small right pleural fusion.
[2024-10-14 04:54] LABS: Anion Gap 13 (5-15); BUN/Creatinine Ratio 17.7 (10.0-20.0); Carbon Dioxide 22 mmol/L (20-31); Chloride 99 mmol/L (98-107); Magnesium 2.1 mg/dL (1.6-2.6); Potassium 4.8 mmol/L (3.5-5.1)
[2024-10-14 04:58] LABS: Alanine Aminotransferase 42 U/L (7-40); Albumin 2.1 g/dL (3.2-4.8); Alkaline Phosphatase 125 U/L (46-116); Bilirubin, Total 3.2 mg/dL (0.2-1.0); Calcium 7.1 mg/dL (8.7-10.4); Glucose 133 mg/dL (74-106); Sodium 134 mmol/L (136-145); Total Protein 4.8 g/dL (5.7-8.2)
[2024-10-14 04:59] LABS: Blood Urea Nitrogen 88 mg/dL (9-23)
[2024-10-14 05:02] LABS: Base Excess -7.5 mmol/L (-2.0-3.0)
[2024-10-14 05:11] LABS: Total Cells Counted 100.0 (100)
[2024-10-14] MEDS: SODIUM BICARB 8.4% 50Meq/50ml SYR INJ IV ONE (05:43)
[2024-10-14 07:57] LABS: Base Excess -4.0 mmol/L (-2.0-3.0)
--- NOTE | 2024-10-14 10:24 | DVHPN2 ---
Progress Note Date Seen: October 14, 2024 Resident Creating Document: SILAS STAHL RESIDENT Has the PT tested + for MRSA If YES, has PT been informed?: No Medical Necessity Reason Pt with a Central, PICC or Fol: Yes The following are medically ne: Gómez Catheter Reason for gómez catheter: Strict I&O Subjective Review of Systems Patient seen examined at bedside, patient is currently sedated and intubated on the following mechanical ventilatory settings: VT 500, if 28, FiO2 100%, PEEP 8. ABG of this morning was analyzed and reviewed showing a pH of 7.37, pCO2 of 35.6, PaO2 of 67.5 and HC03 of 20.5 consistent with a mixed pattern of metabolic acidosis with respiratory alkalosis calculated by evans formula. Patient's total urine output: In's of 4517 cc and out's of 1105 cc for a positive balance of 3412 cc in the last 24 hours. Last urine sodium was 76, last urine creatinine was 48.05 that allowed us to calculate a FENA of 5.85. The patient is currently on bumetanide 1 milligram/hour. The patient is also on IV antibiotics, meropenem, linezolid and micafungin. The patient is currently requiring vasopressors, Levophed at 26 micrograms/minute. On my examination, the patient has four drains in total. One biliary drain that is draining 30 cc in the last 24 hours and three additional drains that were placed after the exploratory laparotomy. The 1st drain is draining 25 cc, 2nd drain draining 200 cc and 3rd drain is draining 20 cc in the last 24 hours. There are decreased breath sounds on the right lung base and very mild crackles in the mid and upper right lung. Left lung sounds grossly clear, there was no lower extremity edema but there is significant bilateral upper extremity swelling. We will increase the bumetanide drip to 2 milligrams/hour and we will give a seen glue push 4 mg IV. We will continue to monitor kidney function closely and concealed renal replacement therapy if patient is nonresponsive to diuretics. ROS unable to obtain due to patient's current status of sedation and intubation. Objective vital signs Vital Sign Date Time Temp Pulse Resp B/P (MAP) Pulse Ox O2 Delivery O2 Flow Rate FiO2 10/14/24 09:45 91 28 110/44 (66) 95 100 10/14/24 08:00 97.4 97.4 10/14/24 06:00 Mechanical Ventilator+ Total Intake and Output 10/13/24 10/13/24 10/14/24 15:00 23:00 07:00 Intake Total 1014.861 ml 1590.628 ml 2052.542 ml Output Total 495 ml 610 ml Balance 1014.861 ml 1095.628 ml 1442.542 ml medications Current Medications Medications Dose Ordered Sig/Wally Route Start Time Stop Time Status Last Admin Dose Admin Norepinephrine Bitartrate 250 ml @ 3.75 mls/hr Q24H IV 10/04/24 08:00 10/14/24 06:46 45 MLS/HR Fentanyl Citrate 250 ml @ 2.5 mls/hr Q24H IV 10/04/24 09:45 10/14/24 07:53 32.5 MLS/HR Ondansetron HCl 4 mg Q4HP PRN IV 10/04/24 11:45 Morphine Sulfate 2 mg Q4HPRN PRN IV 10/04/24 11:45 Nitroglycerin 0.4 mg Q5MINP PRN SL 10/04/24 11:45 Morphine Sulfate 2 mg Q30M PRN IV 10/04/24 11:45 Lorazepam 50 mg/ Sodium Chloride 50 ml @ 1 mls/hr Q24H IV 10/04/24 18:15 Cancel Midazolam HCl 50 ml @ 1 mls/hr Q24H IV 10/04/24 18:30 10/14/24 02:08 5 MLS/HR Vasopressin 20 units/Sodium Chloride 100 ml @ 12 mls/hr Q8H20M IV 10/04/24 20:30 10/06/24 22:26 12 MLS/HR Acetaminophen 650 mg Q6HPRN PRN AL 10/04/24 21:00 10/11/24 15:19 650 MG Amino Acids 0 ml @ 0 mls/hr PER PHARMACY IV 10/05/24 14:30 UNV Amino Acids 0 ml @ 0 mls/hr PER PHARMACY IV 10/05/24 14:30 Diagnostic Test (Pha) 1 strip Q6HR 10/05/24 18:00 10/14/24 06:00 1 STRIP Insulin Human Regular FOLLOW SLIDING SCALE Q6HR SC 10/05/24 18:00 10/13/24 18:54 2 UNITS Dextrose 50 ml UD IV 10/05/24 14:45 Meropenem 50 ml @ 17 mls/hr Q12HR IV 10/07/24 10:00 UNV Micafungin Sodium 100 mg/Sodium Chloride 100 ml @ 100 mls/hr DAILY IV 10/07/24 10:00 10/13/24 10:15 100 MLS/HR Labetalol HCl 10 mg Q2HPRN PRN IV 10/08/24 09:30 Propofol 100 ml @ 2.181 mls/ hr Q24H IV 10/10/24 10:30 10/14/24 03:19 8.724 MLS/HR Pantoprazole Sodium 40 mg DAILY IV 10/12/24 10:00 10/13/24 10:15 40 MG Linezolid 300 ml @ 150 mls/hr Q12HR IV 10/13/24 10:00 10/13/24 21:54 150 MLS/HR Acetylcysteine 100 mg Q6HR NEB 10/13/24 12:00 10/15/24 06:01 10/14/24 06:40 100 MG Levalbuterol HCl 0.625 mg Q6HR NEB 10/13/24 12:00 10/14/24 06:40 0.625 MG Ipratropium [place] 0.5 mg Q6HR NEB 10/13/24 12:00 10/14/24 06:40 0.5 MG Sodium Acetate 100 meq/Calcium Gluconate 4.65 meq/Magnesium Sulfate 8 meq/ Multivitamins 10 ml/Amino Acids/ Dextrose 1,072 ml @ 45 mls/hr [id number] IV 10/13/24 22:00 10/14/24 21:59 10/13/24 21:51 45 MLS/HR Meropenem 50 ml @ 17 mls/hr Q12H IV 10/13/24 14:00 10/14/24 01:57 17 MLS/HR Bumetanide 25 mg/ Miscellaneous 100 ml @ 4 mls/hr Q24H IV 10/13/24 14:45 10/14/24 08:02 4 MLS/HR Examination Physical Examination General: Patient sedated and intubated. VT 500, if 28, FiO2 100%, PEEP 8. HEENT: Normocephalic, atraumatic, moist mucous membranes Respiratory/pulmonary: There is significant decreased breath sounds in the right lung base and mild crackles in mid and upper right lobes. Left lung sounds grossly clear. Cardiovascular: Normal heart sounds S1 and S2 with no associated murmurs Abdomen: Abdomen nondistended, soft to palpation with binder in place. There are three drains placed to in the left abdominal cavity and one in the right. There is also a right-sided cholecystostomy drain which is draining 30 cc in the last 24 hours. The three drains were labeled as #1 draining 25cc, #2 draining 200cc, #3 draining 20cc in the last 24 hrs. Extremities: There is no peripheral edema present at the lower extremities but there is significant swelling on bilateral upper extremities. Skin: No rashes or pruritus, there is no sacral edema present at this time. Neurological: RASS -3 laboratory and microbiology Laboratory Tests 10/14/24 03:00 Test 10/14/24 03:00 Range/Units Serum Glucose 133 H 74-106 mg/dL Microbiology Date/Time Source Procedure Growth Status 10/10/24 13:45 Aspirate Gram Stain - Final Resulted 10/10/24 13:45 Aspirate Body Fluid Culture - Preliminary Resulted 10/05/24 15:05 Voided Urine Urine Culture - Final Complete 10/04/24 17:10 Nose MRSA Screen - Final Complete 10/04/24 07:01 Blood Blood Culture - Final NO GROWTH AFTER 5 DAYS OF INCUBATION. Complete Problem List/Assessment/Plan Problem List/Assessment/Plan Assessment/Plan Acute kidney injury likely acute tubular necrosis with a FeNa >2% (5.85) Septic shock due to perforated peptic ulceration and peritonitis Hemodynamic shock with severe acute anemia likely due to above, requiring PRBCs transfusion Status post exploratory laparotomy with three intra-abdominal drains placement (10/04/24) Status post cholecystostomy drain placed Acute hypoxyc/hypercapnic respiratory failure requiring mechanical ventilation Possible gram+/- bacterial pneumonia Hyponatremia resolved Hypomagnesemia resolved Plan -total urine output in the last 24 hours: In's of 4517 cc, out's of 1105 cc for a positive balance of 3412 -kidney function slightly worsening, creatinine today at 4.97 and BUN 88 -Increase bumetanide drip to 2 milligram/hour -Give an additional 4mg IV push once -IV albumin x3 doses -calculated FeNa of 5.85% -ABG was reviewed showing a mixed metabolic acidosis with respiratory alkalosis -Cont IV abs per primary team -Will consider renal replacement therapy if there is no response to diuretics. Goals of care discussed with nurse and oil laboratory analyst Plan discussed with Dr. Acevedo Plan discussed with: Other Dietary Evaluation Review Comments: 1. Continue TPN to meet at least 75% estimated needs 2. Continue current POC Expected Outcomes/Goals: FU 2-3 days to meet adequate energy & protein within 7 days of NPO CC Plasma Assessment Blood Product Administration S: [id number] SILAS STAHL RESIDENT October 14, 2024 10:23
--- NOTE | 2024-10-14 10:26 | DVHPN2 ---
Subjective Patient intubated and sedated Reviewed: Care Plan, H&P, Labs, Medications, Previous Orders, Radiology, Other (Consultants) Changes from previous H/P or p: No Changes General: Per HPI Objective Vitals Vital Signs Date Time Temp Pulse Resp B/P (MAP) Pulse Ox O2 Delivery O2 Flow Rate FiO2 10/14/24 09:45 91 28 110/44 (66) 95 100 10/14/24 08:00 97.4 97.4 10/14/24 06:00 Mechanical Ventilator+ Intake/Output Intake and Output 10/14/24 07:00 Intake Total 4658.031 ml Output Total 1105 ml Balance 3553.031 ml Intake Oral 0 ml IV Total 4658.031 ml Output Urine Total 475 ml Gastric Drainage Total 295 ml Drainage Total 305 ml Other 30 ml General Appearance: severe distress, Other (Intubated and sedated) HEENT: Atraumatic, PERRLA Lungs: Other (Decreased breath sounds in right base. Mechanical ventilation) Cardiovascular: Regular rate, Normal S2 (l) Abdomen: Other (Abdominal dry and intact. KWAN drains with serosanguineous fluid. Copious amount of NG secretions. Cholecystostomy tube with bilious secretions) Skin: Dry, Intact, Wounds (See nurse notes and pictures), Other (Surgical wounds well approximated) Psych/Mental Status: Other (Unable to assess) Medications Current Medications Medications Dose Ordered Sig/Wally Route Start Time Stop Time Status Last Admin Dose Admin Norepinephrine Bitartrate 250 ml @ 3.75 mls/hr Q24H IV 10/04/24 08:00 10/14/24 06:46 45 MLS/HR Fentanyl Citrate 250 ml @ 2.5 mls/hr Q24H IV 10/04/24 09:45 10/14/24 07:53 32.5 MLS/HR Ondansetron HCl 4 mg Q4HP PRN IV 10/04/24 11:45 Morphine Sulfate 2 mg Q4HPRN PRN IV 10/04/24 11:45 Nitroglycerin 0.4 mg Q5MINP PRN SL 10/04/24 11:45 Morphine Sulfate 2 mg Q30M PRN IV 10/04/24 11:45 Lorazepam 50 mg/ Sodium Chloride 50 ml @ 1 mls/hr Q24H IV 10/04/24 18:15 Cancel Midazolam HCl 50 ml @ 1 mls/hr Q24H IV 10/04/24 18:30 10/14/24 02:08 5 MLS/HR Vasopressin 20 units/Sodium Chloride 100 ml @ 12 mls/hr Q8H20M IV 10/04/24 20:30 10/06/24 22:26 12 MLS/HR Acetaminophen 650 mg Q6HPRN PRN ND 10/04/24 21:00 10/11/24 15:19 650 MG Amino Acids 0 ml @ 0 mls/hr PER PHARMACY IV 10/05/24 14:30 UNV Amino Acids 0 ml @ 0 mls/hr PER PHARMACY IV 10/05/24 14:30 Diagnostic Test (Pha) 1 strip Q6HR 10/05/24 18:00 10/14/24 06:00 1 STRIP Insulin Human Regular FOLLOW SLIDING SCALE Q6HR SC 10/05/24 18:00 10/13/24 18:54 2 UNITS Dextrose 50 ml UD IV 10/05/24 14:45 Meropenem 50 ml @ 17 mls/hr Q12HR IV 10/07/24 10:00 UNV Micafungin Sodium 100 mg/Sodium Chloride 100 ml @ 100 mls/hr DAILY IV 10/07/24 10:00 10/13/24 10:15 100 MLS/HR Labetalol HCl 10 mg Q2HPRN PRN IV 10/08/24 09:30 Propofol 100 ml @ 2.181 mls/ hr Q24H IV 10/10/24 10:30 10/14/24 03:19 8.724 MLS/HR Pantoprazole Sodium 40 mg DAILY IV 10/12/24 10:00 10/13/24 10:15 40 MG Linezolid 300 ml @ 150 mls/hr Q12HR IV 10/13/24 10:00 10/13/24 21:54 150 MLS/HR Acetylcysteine 100 mg Q6HR NEB 10/13/24 12:00 10/15/24 06:01 10/14/24 06:40 100 MG Levalbuterol HCl 0.625 mg Q6HR NEB 10/13/24 12:00 10/14/24 06:40 0.625 MG Ipratropium [place] 0.5 mg Q6HR NEB 10/13/24 12:00 10/14/24 06:40 0.5 MG Sodium Acetate 100 meq/Calcium Gluconate 4.65 meq/Magnesium Sulfate 8 meq/ Multivitamins 10 ml/Amino Acids/ Dextrose 1,072 ml @ 45 mls/hr [id number] IV 10/13/24 22:00 10/14/24 21:59 10/13/24 21:51 45 MLS/HR Meropenem 50 ml @ 17 mls/hr Q12H IV 10/13/24 14:00 10/14/24 01:57 17 MLS/HR Bumetanide 25 mg/ Miscellaneous 100 ml @ 4 mls/hr Q24H IV 10/13/24 14:45 10/14/24 08:02 4 MLS/HR Norepinephrine Bitartrate 32 mg/ Sodium Chloride 250 ml @ 0.938 mls/ hr Q24H IV 10/14/24 10:15 UNV Laboratory Results Laboratory Tests 10/14/24 03:00 Chemistry Test 10/14/24 03:00 Albumin 2.1 g/dL (3.2-4.8) L Calcium Level 7.1 mg/dL (8.7-10.4) L Magnesium Level 2.1 mg/dL (1.6-2.6) Phosphorus Level 7.0 mg/dL (2.4-5.1) H Total Protein 4.8 g/dL (5.7-8.2) L Coagulation Test 10/13/24 14:05 Prothrombin Time 11.8 sec (9.3-11.8) Prothrombin Time INR 1.13 (0.9-1.15) Activated Partial Thromboplast Time 60.3 SEC (24.5-34.5) H LFT Test 10/14/24 03:00 Alanine Aminotransferase (ALT) 42 U/L (7-40) H Alkaline Phosphatase 125 U/L (46-116) H Aspartate Amino Transferase (AST) 59 U/L (13-40) H Total Bilirubin 3.2 mg/dL (0.2-1.0) H Urinalysis Test 10/05/24 15:05 10/11/24 18:00 Urine Color Light-yellow (Yellow) Urine Clarity Hazy (Clear) H Urine pH 5.5 (5.0-9.0) Urine Specific [place] 1.018 (1.001-1.035) Urine Protein 1+ (Negative) H Urine Ketones Negative (Negative) Urine Blood 3+ /uL (Negative) H Urine Nitrite Negative (Negative) Urine Bilirubin Negative (Negative) Urine Urobilinogen Normal mg/dL (Negative) Urine Leukocyte Esterase Negative /uL (Negative) Urine RBC 1 /hpf (0 - 3) Urine Microscopic WBC 9 /HPF (0-3) H Urine Squamous Epithelial Cells Few /hpf (<5) Urine Bacteria Few /hpf (None Seen) H Urine Mucus Few (None Seen) Urine Glucose Trace mg/dL (Normal) Urine Total Protein 85.0 mg/dL (1-14) H Urine Creatinine 48.05 mg/dL (30.0-125.0) Urine Sodium 76 mmol/L (40-220) Blood Gas Results Test 10/13/24 10:33 10/13/24 16:52 10/13/24 20:05 10/14/24 04:56 Arterial Blood pH 7.233 (7.350-7.450) 7.169 (7.350-7.450) 7.320 (7.350-7.450) 7.257 (7.350-7.450) FiO2 % 35.0 60.0 60.0 100.0 Test 10/14/24 07:51 Arterial Blood pH 7.379 (7.350-7.450) FiO2 % 100.0 Microbiology Microbiology Date/Time Source Procedure Growth Status 10/10/24 13:45 Aspirate Gram Stain - Final Resulted 10/10/24 13:45 Aspirate Body Fluid Culture - Preliminary Resulted 10/05/24 15:05 Voided Urine Urine Culture - Final Complete 10/04/24 17:10 Nose MRSA Screen - Final Complete 10/04/24 07:01 Blood Blood Culture - Final NO GROWTH AFTER 5 DAYS OF INCUBATION. Complete Labs and/or images reviewed: Labs reviewed by me, Image(s) reviewed by me Assessment/Plan Assessment/Plan Impression: -severe septic shock -pneumoperitoneum secondary to perforated gastric ulcer -acute kidney injury, hemodynamically mediated, probable VMN -acute hypoxic respiratory failure -shock liver -nicotine dependence -history of CVA Plan: Events: Worsening respiratory status. FIO2 100%, +8. Pending Thoracentesis. New A-line placed by myself. Requiring high dose Levophed. Pending CT of chest abdomen and pelvis -change antimicrobial coursed to Meropenem, micafungin, add Zyvox -TPN -norepinephrine to keep map greater than 65 mmHg -Protonix 40 mg IV twice a day -further recommendations per surgical consultation -continue current sedation -add q.6 duo nebs with Mucomyst -chest percussion -repeat labs, chest x-ray, ABG in a.m. -Discussed plan of care with . All questions answered. Critical care time spent with patient discussing and formulating plan of care: 90 minutes. This does not include time spent performing procedures. This medical document was created using an electronic medical record system with [employer] dictation system. Although this document has been carefully reviewed, there may still be some phonetic and typographical errors. These areas are purely typographical due to imperfections of the software programs, and do not reflect any compromise in the patient's medical care. Plan discussed with: Patient, Other (RN) My Orders Orders - CHEYENNE PIKE NP Procedure Category Date Status Time Meropenem 500mg Ivpb PHA 10/13/24 In Process (Merrem 500mg/Ns) 14:00 Ventilator Orders RT 10/13/24 Transmitted 16:07 Abg W/ Co-Ox RT 10/13/24 Logged 16:28 Ventilator Orders RT 10/13/24 Transmitted 17:08 Chst Ab Pel Wo Con-No CT 10/13/24 Logged Iv/Oral 17:38 Abg W/ Co-Ox RT 10/13/24 Logged 19:00 Abg W/ Co-Ox RT 10/14/24 Logged 04:46 * Radiologist Consult CONS 10/14/24 Transmitted 08:10 Sodium Chl 0.9% PHA 10/14/24 Logged (Ns... 10:15 Comprehensive LAB 10/15/24 Verified Metabolic Panel 05:00 Comprehensive LAB 10/16/24 Verified Metabolic Panel 05:00 Comprehensive LAB 10/17/24 Verified Metabolic Panel 05:00 Date of Service: October 14, 2024 Billing Provider: CHEYENNE PIKE NP Common Visit Codes: 13448-[id number] CARE 30-74 MIN, 19541-[id number] CARE-EACH +30MIN CHEYENNE PIKE NP October 14, 2024 10:26
[2024-10-14] MEDS: NOREPINEPHRINE BITARTRATE 32 MG in SODIUM CHL 0.9% 218 ML IV SCH (10:54)
--- NOTE | 2024-10-14 12:06 | DVH ---
XY CHEST PORTABLE, HISTORY: POST THORACENTESIS COMPARISON: XY CHEST PORTABLE on DOS: 10/14/24, XY CHEST PORTABLE on DOS: 10/13/24, XY CHEST PORTABLE o n DOS: 10/12/24 XY CHEST PORTABLE on DOS: 10/14/24, XY CHEST PORTABLE on DOS: 10/13/24, XY CHEST PORTABLE on DOS: TECHNICAL DATA: 1 view of the chest was obtained. FINDINGS: Lines and tubes: Stable lines and tubes. Cardiomediastinal silhouette: normal Pulmonary vasculature: Prominent Lung expansion: low Lung airspace: patchy airspace opacities Lung interstitium: prominent Pleura: decreased right effusion. Pneumothorax: no Bones: Unremarkable Other: no IMPRESSION: Decreased right sided effusion with no pneumothorax is seen.
--- NOTE | 2024-10-14 12:09 | DVH ---
US THORACENTESIS, HISTORY: PLEURAL EFFUSION PROCEDURE: Informed consent was obtained. The patient was supine on the bed. A limited localization u ltrasound of the right thorax was obtained, and the optimal approach was marked on the skin. The area was prepped with chlorhexidine which was allowed to dry and draped in the usual sterile fashion. Greg e out was performed. The skin and the soft tissues were infiltrated with 1% lidocaine. A 5.5 [place] entesis needle catheter was advanced into right pleural space. Following aspiration of fluid, the cat heter was advanced and the needle removed. About 1500 cc of fluid was drained. Specimen/s was/were se nt for appropriate cultures/cytology/cultures and cytology. No immediate complication was identified. FINDINGS: Large septated right pleural effusion. Aspirated fluid is serous. IMPRESSION: Right thoracentesis with 1.5L removed.
[2024-10-14] MEDS: BUMETANIDE INJECTION 25 MG in GIVE UN-DILUTED 0 ML IV SCH (13:39)
[2024-10-14] MEDS: ALBUMIN 25% 50 ML IV SCH (13:46)
[2024-10-14] MEDS: BUMETANIDE 2.5mg/10ml (0.25 mg/ml) INJ IV ONE (13:47)
--- NOTE | 2024-10-14 14:45 | DVHPN2 ---
Progress Note Date Seen: October 14, 2024 Has the PT tested + for MRSA If YES, has PT been informed?: No Medical Necessity Reason Pt with a Central, PICC or Fol: Yes The following are medically ne: Gómez Catheter Reason for gómez catheter: Strict I&O Objective vital signs Vital Sign Date Time Temp Pulse Resp B/P (MAP) Pulse Ox O2 Delivery O2 Flow Rate FiO2 10/14/24 14:28 77 28 151/60 (90) 97 70 10/14/24 12:00 98.2 98.2 10/14/24 12:00 Mechanical Ventilator+ Total Intake and Output 10/13/24 10/13/24 10/14/24 15:00 23:00 07:00 Intake Total 1014.861 ml 1590.628 ml 2052.542 ml Output Total 495 ml 610 ml Balance 1014.861 ml 1095.628 ml 1442.542 ml medications Current Medications Medications Dose Ordered Sig/Wally Route Start Time Stop Time Status Last Admin Dose Admin Fentanyl Citrate 250 ml @ 2.5 mls/hr Q24H IV 10/04/24 09:45 10/14/24 07:53 32.5 MLS/HR Ondansetron HCl 4 mg Q4HP PRN IV 10/04/24 11:45 Morphine Sulfate 2 mg Q4HPRN PRN IV 10/04/24 11:45 Nitroglycerin 0.4 mg Q5MINP PRN SL 10/04/24 11:45 Morphine Sulfate 2 mg Q30M PRN IV 10/04/24 11:45 Lorazepam 50 mg/ Sodium Chloride 50 ml @ 1 mls/hr Q24H IV 10/04/24 18:15 Cancel Midazolam HCl 50 ml @ 1 mls/hr Q24H IV 10/04/24 18:30 10/14/24 11:20 5 MLS/HR Vasopressin 20 units/Sodium Chloride 100 ml @ 12 mls/hr Q8H20M IV 10/04/24 20:30 10/14/24 14:00 9 MLS/HR Acetaminophen 650 mg Q6HPRN PRN DC 10/04/24 21:00 10/11/24 15:19 650 MG Amino Acids 0 ml @ 0 mls/hr PER PHARMACY IV 10/05/24 14:30 UNV Amino Acids 0 ml @ 0 mls/hr PER PHARMACY IV 10/05/24 14:30 Diagnostic Test (Pha) 1 strip Q6HR 10/05/24 18:00 10/14/24 12:21 1 STRIP Insulin Human Regular FOLLOW SLIDING SCALE Q6HR SC 10/05/24 18:00 10/14/24 12:21 2 UNITS Dextrose 50 ml UD IV 10/05/24 14:45 Meropenem 50 ml @ 17 mls/hr Q12HR IV 10/07/24 10:00 UNV Micafungin Sodium 100 mg/Sodium Chloride 100 ml @ 100 mls/hr DAILY IV 10/07/24 10:00 10/14/24 10:27 100 MLS/HR Labetalol HCl 10 mg Q2HPRN PRN IV 10/08/24 09:30 Propofol 100 ml @ 2.181 mls/ hr Q24H IV 10/10/24 10:30 10/14/24 13:48 8.724 MLS/HR Pantoprazole Sodium 40 mg DAILY IV 10/12/24 10:00 10/14/24 10:27 40 MG Linezolid 300 ml @ 150 mls/hr Q12HR IV 10/13/24 10:00 10/14/24 11:42 150 MLS/HR Acetylcysteine 100 mg Q6HR NEB 10/13/24 12:00 10/15/24 06:01 10/14/24 12:02 100 MG Levalbuterol HCl 0.625 mg Q6HR NEB 10/13/24 12:00 10/14/24 12:02 0.625 MG Ipratropium [place] 0.5 mg Q6HR NEB 10/13/24 12:00 10/14/24 12:02 0.5 MG Sodium Acetate 100 meq/Calcium Gluconate 4.65 meq/Magnesium Sulfate 8 meq/ Multivitamins 10 ml/Amino Acids/ Dextrose 1,072 ml @ 45 mls/hr [id number] IV 10/13/24 22:00 10/14/24 21:59 10/13/24 21:51 45 MLS/HR Meropenem 50 ml @ 17 mls/hr Q12H IV 10/13/24 14:00 10/14/24 01:57 17 MLS/HR Norepinephrine Bitartrate 32 mg/ Sodium Chloride 250 ml @ 0.938 mls/ hr Q24H IV 10/14/24 10:15 10/14/24 10:54 14.063 MLS/HR Sodium Chloride 30 meq/Sodium Acetate 80 meq/ Calcium Gluconate 4.65 meq/ Magnesium Sulfate 8 meq/ Multivitamins 10 ml/Amino Acids/ Dextrose 1,019.5 ml @ 42 mls/hr [id number] IV 10/14/24 22:00 10/15/24 21:59 Bumetanide 25 mg/ Miscellaneous 100 ml @ 8 mls/hr [id number] IV 10/14/24 13:15 10/14/24 13:39 8 MLS/HR Albumin Human 50 ml @ 100 mls/hr Q8H IV 10/14/24 13:15 10/15/24 05:44 10/14/24 13:46 100 MLS/HR laboratory and microbiology Laboratory Tests 10/14/24 03:00 Test 10/14/24 03:00 Range/Units Serum Glucose 133 H 74-106 mg/dL Problem List/Assessment/Plan Problem List/Assessment/Plan 10/10/24 patient had exploratory operation with closure of perforated peptic ulceration about 5 days ago, now concern about possible cholecystitis. GB sludge,GB wall thickened and surounding edema,.LFT's elevated. [patient has history of heavy alcohol use(spouse report). LFTs elevation could be due to liver Ds but cholecystostomy is a reasonable next step, will follow with you 10/14/24 patient appears "surgically stable", will get gastrografin UGI prior to resuming gastric feedings Plan discussed with: Other Dietary Evaluation Review Comments: 1. Continue TPN to meet at least 75% estimated needs 2. Continue current POC Expected Outcomes/Goals: FU 2-3 days to meet adequate energy & protein within 7 days of NPO LOBO BSOWELL MD October 14, 2024 14:45
[2024-10-14] MEDS: ENOXAPARIN SOD 80 MG/0.8ML SYRINGE SC SCH (19:12)
--- NOTE | 2024-10-14 19:13 | DVH ---
History: sepsis. Assess for abscess. Position of colecystostomy tube Comparison Study: None TECHNIQUE: Multidetector CT of the chest, abdomen and pelvis was performed from lower neck to pubic s ymphysis without the use of intravenous contrast. Axial, coronal and sagittal multiplanar reformats w ere performed by the technologist on a separate workstation. Radiation Dose Information: CT Dose: CTDI volume is 15.82 mGy. Dose-length product is 1190.93 mGy*cm FINDINGS: Lower neck: Normal thyroid. Endotracheal tube and enteric tube visualized. Right internal jugular cat heter in place with the tip in the distal superior vena cava. Lungs: Moderate bilateral pleural effusions with atelectasis in the right base. Airspace disease not ed throughout both lung ansari worse in the bases. Heart/Vascular Structures: Normal heart size. Lymph Nodes: No adenopathy. Pleura: No pleural effusion or significant pneumothorax. Liver: The liver is normal in size. Non-contrast appearance of liver. Gallbladder and Biliary Tree: Percutaneous colostomy tube in place in gallbladder. Spleen: Unremarkable. Pancreas: Unremarkable. Adrenal Glands: Unremarkable. Kidneys: No renal calculi or hydronephrosis. Bladder: Barrios catheter in place in the bladder and bladder is empty. Bowel: No bowel wall thickening or dilatation. 2 percutaneous drainage tubes in place from the left u pper abdomen terminating in the lower abdomen and pelvis. The appendix is not visualized; however, no secondary findings of acute appendicitis identified. Peritoneum: No ascites or pneumoperitoneum. Lymphadenopathy: No enlarged lymph nodes. Vasculature: The visualized abdominal aorta is normal in size and caliber. Evaluation of the vascular structures is limited due to lack of intravenous contrast. Pelvic Organs: Unremarkable. Musculoskeletal: No acute osseous abnormality. Soft tissues: Unremarkable. IMPRESSION: 1. Scattered airspace disease noted bilaterally involving all segments of the lungs bilaterally worse in the lung bases. Moderate bilateral pleural effusions are noted. 2. Cholecystostomy tube in place in the gallbladder. 3. 2 percutaneous abdominal drainage tubes in place 1 terminates in the lower abdomen the other in th e lower pelvis. 4. Barrios catheter in the bladder in the bladder is empty. All CT scans at this medical facility are performed using dose modulation techniques as appropriate t o a performed exam including the following: Automated exposure control was utilized; adjustment of th e MA and/or KV according to patient size; and use of iterative reconstruction technique.
--- NOTE | 2024-10-14 20:22 | DVHPN2 ---
Progress Note - Dictate Date Seen: October 14, 2024 Has the PT tested + for MRSA If YES, has PT been informed?: No Medical Necessity Reason Pt with a Central, PICC or Fol: Yes The following are medically ne: Gómez Catheter Reason for gómez catheter: Strict I&O vital signs Vital Sign Date Time Temp Pulse Resp B/P (MAP) Pulse Ox O2 Delivery O2 Flow Rate FiO2 10/14/24 19:00 84 28 173/70 (104) 97 129/47 (74) 10/14/24 18:09 70 10/14/24 18:00 Mechanical Ventilator+ 10/14/24 16:00 97.7 97.7 Total Intake and Output 10/13/24 10/13/24 10/14/24 15:00 23:00 07:00 Intake Total 1014.861 ml 1590.628 ml 2150.042 ml Output Total 495 ml 610 ml Balance 1014.861 ml 1095.628 ml 1540.042 ml medications Current Medications Medications Dose Ordered Sig/Wally Route Start Time Stop Time Status Last Admin Dose Admin Fentanyl Citrate 250 ml @ 2.5 mls/hr Q24H IV 10/04/24 09:45 10/14/24 14:59 32.5 MLS/HR Ondansetron HCl 4 mg Q4HP PRN IV 10/04/24 11:45 Morphine Sulfate 2 mg Q4HPRN PRN IV 10/04/24 11:45 Nitroglycerin 0.4 mg Q5MINP PRN SL 10/04/24 11:45 Morphine Sulfate 2 mg Q30M PRN IV 10/04/24 11:45 Lorazepam 50 mg/ Sodium Chloride 50 ml @ 1 mls/hr Q24H IV 10/04/24 18:15 Cancel Midazolam HCl 50 ml @ 1 mls/hr Q24H IV 10/04/24 18:30 10/14/24 11:20 5 MLS/HR Vasopressin 20 units/Sodium Chloride 100 ml @ 12 mls/hr Q8H20M IV 10/04/24 20:30 10/14/24 14:00 9 MLS/HR Acetaminophen 650 mg Q6HPRN PRN ND 10/04/24 21:00 10/11/24 15:19 650 MG Amino Acids 0 ml @ 0 mls/hr PER PHARMACY IV 10/05/24 14:30 UNV Amino Acids 0 ml @ 0 mls/hr PER PHARMACY IV 10/05/24 14:30 Diagnostic Test (Pha) 1 strip Q6HR 10/05/24 18:00 10/14/24 18:09 1 STRIP Insulin Human Regular FOLLOW SLIDING SCALE Q6HR SC 10/05/24 18:00 10/14/24 18:11 4 UNITS Dextrose 50 ml UD IV 10/05/24 14:45 Meropenem 50 ml @ 17 mls/hr Q12HR IV 10/07/24 10:00 UNV Micafungin Sodium 100 mg/Sodium Chloride 100 ml @ 100 mls/hr DAILY IV 10/07/24 10:00 10/14/24 10:27 100 MLS/HR Labetalol HCl 10 mg Q2HPRN PRN IV 10/08/24 09:30 Propofol 100 ml @ 2.181 mls/ hr Q24H IV 10/10/24 10:30 10/14/24 13:48 8.724 MLS/HR Pantoprazole Sodium 40 mg DAILY IV 10/12/24 10:00 10/14/24 10:27 40 MG Linezolid 300 ml @ 150 mls/hr Q12HR IV 10/13/24 10:00 10/14/24 11:42 150 MLS/HR Acetylcysteine 100 mg Q6HR NEB 10/13/24 12:00 10/15/24 06:01 10/14/24 18:10 100 MG Levalbuterol HCl 0.625 mg Q6HR NEB 10/13/24 12:00 10/14/24 18:09 0.625 MG Ipratropium [place] 0.5 mg Q6HR NEB 10/13/24 12:00 10/14/24 18:09 0.5 MG Sodium Acetate 100 meq/Calcium Gluconate 4.65 meq/Magnesium Sulfate 8 meq/ Multivitamins 10 ml/Amino Acids/ Dextrose 1,072 ml @ 45 mls/hr [id number] IV 10/13/24 22:00 10/14/24 21:59 10/13/24 21:51 45 MLS/HR Meropenem 50 ml @ 17 mls/hr Q12H IV 10/13/24 14:00 10/14/24 15:18 17 MLS/HR Norepinephrine Bitartrate 32 mg/ Sodium Chloride 250 ml @ 0.938 mls/ hr Q24H IV 10/14/24 10:15 10/14/24 10:54 14.063 MLS/HR Sodium Chloride 30 meq/Sodium Acetate 80 meq/ Calcium Gluconate 4.65 meq/ Magnesium Sulfate 8 meq/ Multivitamins 10 ml/Amino Acids/ Dextrose 1,019.5 ml @ 42 mls/hr [id number] IV 10/14/24 22:00 10/15/24 21:59 Bumetanide 25 mg/ Miscellaneous 100 ml @ 8 mls/hr [id number] IV 10/14/24 13:15 10/14/24 13:39 8 MLS/HR Albumin Human 50 ml @ 100 mls/hr Q8H IV 10/14/24 13:15 10/15/24 05:44 10/14/24 13:46 100 MLS/HR Enoxaparin Sodium 80 mg Q24H SC 10/14/24 19:00 10/14/24 19:12 80 MG laboratory and microbiology Laboratory Tests 10/14/24 03:00 Test 10/14/24 03:00 Range/Units Serum Glucose 133 H 74-106 mg/dL Assessment/Plan Impression Acute hypoxemic respiratory failure Perforated viscus Septic shock Smoker Patient seen and examined in ICU Events On mechanical ventilation S/p intubation PEEP 8, FiO2 70% Remains hypoxemic S/p thoracentesis by IR On Bumex drip for fluid overload S/p cholecystic drain placement S/p ex lap and repair Labs and imaging reviewed ABG reviewed Management Vent support Titrate to maintain sats 90% or above Sedation holiday to evaluate neurological status If patient follows commands, proceed to weaning trial Pressure support 11/22, extubate when ready Continue antibiotics F/u cultures Bronchodilators Monitor renal function Monitor electrolytes Supplement as needed Pressors as needed for hemodynamic support To maintain a mean arterial pressure of 65 mmHg F/u GI DVT prophylaxis Critical care time 35 minutes Dietary Evaluation Review Comments: 1. Continue TPN to meet at least 75% estimated needs 2. Continue current POC Expected Outcomes/Goals: FU 2-3 days to meet adequate energy & protein within 7 days of NPO Plan discussed with: Other (Rn) CC Plasma Assessment Blood Product Administration S: [id number] VALENTE DEE MD October 14, 2024 20:22
[2024-10-14] MEDS: TPN PER PHARMACY IV NR (21:47)
[2024-10-15] VITALS (105 sets, daily range): BP systolic 95–173; BP diastolic 41–89; PULSE 73–93; RESP 13–29; TEMP 98.1–98.8; O2SAT 88–100
[2024-10-15 03:53] LABS: Hematocrit 28.1 % (41.0-53.0); Hemoglobin 9.3 g/dL (13.5-17.5); Mean Corpuscular Hemoglobin 28.9 pg (28.0-32.0); Mean Corpuscular Volume 87.2 fL (80.0-100.0); Nucleated Red Blood Cells % 0.0 %
[2024-10-15 04:12] LABS: Alanine Aminotransferase 34 U/L (7-40); Anion Gap 14 (5-15); BUN/Creatinine Ratio 16.9 (10.0-20.0); Carbon Dioxide 23 mmol/L (20-31); Magnesium 2.2 mg/dL (1.6-2.6); Potassium 5.0 mmol/L (3.5-5.1)
[2024-10-15 04:28] LABS: Albumin 2.2 g/dL (3.2-4.8); Alkaline Phosphatase 143 U/L (46-116); Bilirubin, Total 3.1 mg/dL (0.2-1.0); Calcium 7.0 mg/dL (8.7-10.4); Chloride 95 mmol/L (98-107); Glucose 132 mg/dL (74-106); Sodium 132 mmol/L (136-145); Total Protein 4.9 g/dL (5.7-8.2)
[2024-10-15 04:29] LABS: Blood Urea Nitrogen 99 mg/dL (9-23)
--- NOTE | 2024-10-15 05:12 | DVH ---
EXAM: XR Chest, 1 View CLINICAL INDICATION: pna TECHNIQUE: Frontal view of the chest. COMPARISON: XY CHEST PORTABLE on DOS: 10/14/24, XY CHEST PORTABLE on DOS: 10/14/24, XY CHEST PORTABLE on DOS: 10/13/24, XY CHEST PORTABLE on DOS: 10/12/24, XY CHEST PORTABLE on DOS: 10/11/24 FINDINGS: LUNGS AND PLEURAL SPACES: Pulmonary congestion and edema. Pneumonia cannot be excluded. No pneumot horax. HEART: Unremarkable. No cardiomegaly. MEDIASTINUM: Unremarkable. Normal mediastinal contour. BONES/JOINTS: Unremarkable. No acute fracture. TUBES, LINES AND DEVICES: Right internal jugular central venous catheter tip in the superior vena c rosaline. The endotracheal tube (ETT) is in satisfactory position. Enteric tube tip in the stomach. OTHER FINDINGS: . . IMPRESSION: Pulmonary congestion and edema. Pneumonia cannot be excluded.
[2024-10-15 07:52] LABS: Base Excess -4.0 mmol/L (-2.0-3.0)
--- NOTE | 2024-10-15 08:58 | DVHPN2 ---
Subjective Patient intubated and sedated Reviewed: Care Plan, H&P, Labs, Medications, Previous Orders, Radiology, Other (Consultants) Changes from previous H/P or p: No Changes General: Per HPI Objective Vitals Vital Signs Date Time Temp Pulse Resp B/P (MAP) Pulse Ox O2 Delivery O2 Flow Rate FiO2 10/15/24 07:46 77 28 138/61 (86) 96 50 10/15/24 06:00 Mechanical Ventilator+ 10/15/24 05:00 98.1 98.1 Intake/Output Intake and Output 10/15/24 07:00 Intake Total 3580.339 ml Output Total 3625 ml Balance -44.661 ml Intake Oral 0 ml IV Total 3580.339 ml Output Urine Total 1250 ml Gastric Drainage Total 500 ml Chest Tube Drainage Total 1500 ml Drainage Total 90 ml Other 285 ml General Appearance: moderate distress, Other (Intubated and sedated) HEENT: Atraumatic, PERRLA Lungs: Other (Decreased breath sounds in right base. Mechanical ventilation) Cardiovascular: Regular rate, Normal S1, Normal S2 (l) Abdomen: Other (Abdominal dry and intact. KWAN drains with serosanguineous fluid. Copious amount of NG secretions. Cholecystostomy tube with bilious secretions) Skin: Dry, Intact, Wounds (See nurse notes and pictures), Other (Surgical wounds well approximated) Psych/Mental Status: Other (Unable to assess) Medications Current Medications Medications Dose Ordered Sig/Wally Route Start Time Stop Time Status Last Admin Dose Admin Fentanyl Citrate 250 ml @ 2.5 mls/hr Q24H IV 10/04/24 09:45 10/15/24 06:07 32.5 MLS/HR Ondansetron HCl 4 mg Q4HP PRN IV 10/04/24 11:45 Morphine Sulfate 2 mg Q4HPRN PRN IV 10/04/24 11:45 Nitroglycerin 0.4 mg Q5MINP PRN SL 10/04/24 11:45 Morphine Sulfate 2 mg Q30M PRN IV 10/04/24 11:45 Lorazepam 50 mg/ Sodium Chloride 50 ml @ 1 mls/hr Q24H IV 10/04/24 18:15 Cancel Midazolam HCl 50 ml @ 1 mls/hr Q24H IV 10/04/24 18:30 10/15/24 06:07 5 MLS/HR Vasopressin 20 units/Sodium Chloride 100 ml @ 12 mls/hr Q8H20M IV 10/04/24 20:30 10/14/24 22:22 12 MLS/HR Acetaminophen 650 mg Q6HPRN PRN RI 10/04/24 21:00 10/11/24 15:19 650 MG Amino Acids 0 ml @ 0 mls/hr PER PHARMACY IV 10/05/24 14:30 UNV Amino Acids 0 ml @ 0 mls/hr PER PHARMACY IV 10/05/24 14:30 Diagnostic Test (Pha) 1 strip Q6HR 10/05/24 18:00 10/15/24 05:40 1 STRIP Insulin Human Regular FOLLOW SLIDING SCALE Q6HR SC 10/05/24 18:00 10/15/24 00:30 2 UNITS Dextrose 50 ml UD IV 10/05/24 14:45 Meropenem 50 ml @ 17 mls/hr Q12HR IV 10/07/24 10:00 UNV Micafungin Sodium 100 mg/Sodium Chloride 100 ml @ 100 mls/hr DAILY IV 10/07/24 10:00 10/14/24 10:27 100 MLS/HR Labetalol HCl 10 mg Q2HPRN PRN IV 10/08/24 09:30 Propofol 100 ml @ 2.181 mls/ hr Q24H IV 10/10/24 10:30 10/15/24 01:08 6.543 MLS/HR Pantoprazole Sodium 40 mg DAILY IV 10/12/24 10:00 10/14/24 10:27 40 MG Linezolid 300 ml @ 150 mls/hr Q12HR IV 10/13/24 10:00 10/14/24 21:35 150 MLS/HR Levalbuterol HCl 0.625 mg Q6HR NEB 10/13/24 12:00 10/15/24 06:20 0.625 MG Ipratropium [place] 0.5 mg Q6HR NEB 10/13/24 12:00 10/15/24 06:20 0.5 MG Meropenem 50 ml @ 17 mls/hr Q12H IV 10/13/24 14:00 10/15/24 01:07 17 MLS/HR Norepinephrine Bitartrate 32 mg/ Sodium Chloride 250 ml @ 0.938 mls/ hr Q24H IV 10/14/24 10:15 10/14/24 10:54 14.063 MLS/HR Sodium Chloride 30 meq/Sodium Acetate 80 meq/ Calcium Gluconate 4.65 meq/ Magnesium Sulfate 8 meq/ Multivitamins 10 ml/Amino Acids/ Dextrose 1,019.5 ml @ 42 mls/hr [id number] IV 10/14/24 22:00 10/15/24 21:59 10/14/24 21:47 42 MLS/HR Bumetanide 25 mg/ Miscellaneous 100 ml @ 8 mls/hr [id number] IV 10/14/24 13:15 10/14/24 23:11 8 MLS/HR Enoxaparin Sodium 80 mg Q24H SC 10/14/24 19:00 10/14/24 19:12 80 MG Laboratory Results Laboratory Tests 10/15/24 03:18 Chemistry Test 10/15/24 03:18 Albumin 2.2 g/dL (3.2-4.8) L Calcium Level 7.0 mg/dL (8.7-10.4) L Magnesium Level 2.2 mg/dL (1.6-2.6) Phosphorus Level 7.9 mg/dL (2.4-5.1) H Total Protein 4.9 g/dL (5.7-8.2) L LFT Test 10/15/24 03:18 Alanine Aminotransferase (ALT) 34 U/L (7-40) Alkaline Phosphatase 143 U/L (46-116) H Aspartate Amino Transferase (AST) 63 U/L (13-40) H Total Bilirubin 3.1 mg/dL (0.2-1.0) H Urinalysis Test 10/05/24 15:05 10/11/24 18:00 Urine Color Light-yellow (Yellow) Urine Clarity Hazy (Clear) H Urine pH 5.5 (5.0-9.0) Urine Specific [place] 1.018 (1.001-1.035) Urine Protein 1+ (Negative) H Urine Ketones Negative (Negative) Urine Blood 3+ /uL (Negative) H Urine Nitrite Negative (Negative) Urine Bilirubin Negative (Negative) Urine Urobilinogen Normal mg/dL (Negative) Urine Leukocyte Esterase Negative /uL (Negative) Urine RBC 1 /hpf (0 - 3) Urine Microscopic WBC 9 /HPF (0-3) H Urine Squamous Epithelial Cells Few /hpf (<5) Urine Bacteria Few /hpf (None Seen) H Urine Mucus Few (None Seen) Urine Glucose Trace mg/dL (Normal) Urine Total Protein 85.0 mg/dL (1-14) H Urine Creatinine 48.05 mg/dL (30.0-125.0) Urine Sodium 76 mmol/L (40-220) Blood Gas Results Test 10/15/24 07:19 Arterial Blood pH 7.288 (7.350-7.450) FiO2 % 50.0 Microbiology Microbiology Date/Time Source Procedure Growth Status 10/13/24 14:20 Blood Blood Culture - Preliminary NO GROWTH AFTER 24 HOURS OF INCUBATION. Resulted 10/10/24 13:45 Aspirate Gram Stain - Final Resulted 10/10/24 13:45 Aspirate Body Fluid Culture - Preliminary Resulted 10/05/24 15:05 Voided Urine Urine Culture - Final Complete 10/04/24 17:10 Nose MRSA Screen - Final Complete Labs and/or images reviewed: Labs reviewed by me, Image(s) reviewed by me Assessment/Plan Assessment/Plan Impression: -severe septic shock -pneumoperitoneum secondary to perforated gastric ulcer -acute kidney injury, hemodynamically mediated, probable VMN -acute hypoxic respiratory failure -shock liver -nicotine dependence -history of CVA -right upper extremity DVT -multifocal pneumonia, probable Gram-positive/Gram-negative etiology Plan: Events: Patient had thoracentesis with 1.5 L removed. Patient's FiO2 requirements improved with saturation around 96% on 50% FiO2. CT of chest, abdomen, pelvis reveals that chest has bilateral pleural effusions, in addition to multifocal opacities. BUN and creatinine increasing. Discussed with Nephrology regarding possible HD. Upper GI series with Gastrografin currently pending. -continue antimicrobial coursed to Meropenem, micafungin, add Zyvox -TPN -weaned vasopressors to keep map greater than 65 mmHg -Protonix 40 mg IV twice a day -further recommendations per surgical consultation -continue current sedation -continue Bumex drip. Nephrology recommendations appreciated -continue anticoagulation with Lovenox. -repeat labs, chest x-ray, ABG in a.m. -Discussed plan of care with . All questions answered. Critical care time spent with patient discussing and formulating plan of care: 90 minutes. This does not include time spent performing procedures. This medical document was created using an electronic medical record system with [employer] dictation system. Although this document has been carefully reviewed, there may still be some phonetic and typographical errors. These areas are purely typographical due to imperfections of the software programs, and do not reflect any compromise in the patient's medical care. Plan discussed with: Patient, Other (RN) My Orders Orders - CHEYENNE PIKE NP Procedure Category Date Status Time Sodium Chl 0.9% PHA 10/14/24 In Process (Ns... 10:15 Comprehensive LAB 10/16/24 Verified Metabolic Panel 05:00 Comprehensive LAB 10/17/24 Verified Metabolic Panel 05:00 Thoracentesis US 10/14/24 Resulted 10:25 Enoxaparin Sodium PHA 10/14/24 In Process (Lovenox) 19:00 Abg W/ Co-Ox RT 10/15/24 Logged 06:00 Date of Service: October 15, 2024 Billing Provider: CHEYENNE PIKE NP Common Visit Codes: 75207-[id number] CARE 30-74 MIN, [id number] CARE-EACH +30MIN CHEYENNE PIKE NP October 15, 2024 08:58
--- NOTE | 2024-10-15 09:54 | DVHPN2 ---
Progress Note Date Seen: October 15, 2024 Resident Creating Document: SILAS STAHL RESIDENT Has the PT tested + for MRSA If YES, has PT been informed?: No Medical Necessity Reason Pt with a Central, PICC or Fol: Yes The following are medically ne: Gómez Catheter Reason for gómez catheter: Strict I&O Subjective Review of Systems Patient seen and examined at bedside. Patient is currently sedated and intubated in the following ventilatory settings: VT 500, if 28, FiO2 40%, PEEP 8, Sat 94%. Today, chest x-ray showing pulmonary vascular congestion bilaterally. Yesterday we gave bumetanide 4 mg IV push once and we increased bumetanide drip to 2 milligram/hour. Today total in's were 3795 and out's of 3625 but including 1.5 L that was removed through thoracentesis. The total urine output was of 1250 cc in the last 24 hours. The patient still has a positive balance that has been accumulating in the past couple of days. Today creatinine keeps rising to 5.86 and BUN is 99. The three abdominal drainage, #1 Is draining 25 cc, #2 60cc, #3 5cc in the last 12 hours. The cholecystostomy drain is draining 30 cc in the last 12 hours as well. We will decrease bumetanide drip to 0.5 milligram/hour and we will schedule the patient for hemodialysis tomorrow. We will also concentrate all drugs to decrease the amount of fluids administered to the patient. ROS unable to obtain due to patient's current status intubated and sedated. Objective vital signs Vital Sign Date Time Temp Pulse Resp B/P (MAP) Pulse Ox O2 Delivery O2 Flow Rate FiO2 10/15/24 09:22 76 28 130/58 (82) 94 40 10/15/24 08:00 Mechanical Ventilator+ 10/15/24 05:00 98.1 98.1 Total Intake and Output 10/14/24 10/14/24 10/15/24 15:00 23:00 07:00 Intake Total 1543.320 ml 883.654 ml 1261.096 ml Output Total 2205 ml 1420 ml Balance 1543.320 ml -1321.346 ml -158.904 ml medications Current Medications Medications Dose Ordered Sig/Wally Route Start Time Stop Time Status Last Admin Dose Admin Fentanyl Citrate 250 ml @ 2.5 mls/hr Q24H IV 10/04/24 09:45 10/15/24 06:07 32.5 MLS/HR Ondansetron HCl 4 mg Q4HP PRN IV 10/04/24 11:45 Morphine Sulfate 2 mg Q4HPRN PRN IV 10/04/24 11:45 Nitroglycerin 0.4 mg Q5MINP PRN SL 10/04/24 11:45 Morphine Sulfate 2 mg Q30M PRN IV 10/04/24 11:45 Lorazepam 50 mg/ Sodium Chloride 50 ml @ 1 mls/hr Q24H IV 10/04/24 18:15 Cancel Midazolam HCl 50 ml @ 1 mls/hr Q24H IV 10/04/24 18:30 10/15/24 06:07 5 MLS/HR Vasopressin 20 units/Sodium Chloride 100 ml @ 12 mls/hr Q8H20M IV 10/04/24 20:30 10/14/24 22:22 12 MLS/HR Acetaminophen 650 mg Q6HPRN PRN [place] 10/04/24 21:00 10/11/24 15:19 650 MG Amino Acids 0 ml @ 0 mls/hr PER PHARMACY IV 10/05/24 14:30 UNV Amino Acids 0 ml @ 0 mls/hr PER PHARMACY IV 10/05/24 14:30 Diagnostic Test (Pha) 1 strip Q6HR 10/05/24 18:00 10/15/24 05:40 1 STRIP Insulin Human Regular FOLLOW SLIDING SCALE Q6HR SC 10/05/24 18:00 10/15/24 00:30 2 UNITS Dextrose 50 ml UD IV 10/05/24 14:45 Meropenem 50 ml @ 17 mls/hr Q12HR IV 10/07/24 10:00 UNV Micafungin Sodium 100 mg/Sodium Chloride 100 ml @ 100 mls/hr DAILY IV 10/07/24 10:00 10/14/24 10:27 100 MLS/HR Labetalol HCl 10 mg Q2HPRN PRN IV 10/08/24 09:30 Propofol 100 ml @ 2.181 mls/ hr Q24H IV 10/10/24 10:30 10/15/24 01:08 6.543 MLS/HR Pantoprazole Sodium 40 mg DAILY IV 10/12/24 10:00 10/14/24 10:27 40 MG Linezolid 300 ml @ 150 mls/hr Q12HR IV 10/13/24 10:00 10/14/24 21:35 150 MLS/HR Levalbuterol HCl 0.625 mg Q6HR NEB 10/13/24 12:00 10/15/24 06:20 0.625 MG Ipratropium [place] 0.5 mg Q6HR NEB 10/13/24 12:00 10/15/24 06:20 0.5 MG Meropenem 50 ml @ 17 mls/hr Q12H IV 10/13/24 14:00 10/15/24 01:07 17 MLS/HR Norepinephrine Bitartrate 32 mg/ Sodium Chloride 250 ml @ 0.938 mls/ hr Q24H IV 10/14/24 10:15 10/14/24 10:54 14.063 MLS/HR Sodium Chloride 30 meq/Sodium Acetate 80 meq/ Calcium Gluconate 4.65 meq/ Magnesium Sulfate 8 meq/ Multivitamins 10 ml/Amino Acids/ Dextrose 1,019.5 ml @ 42 mls/hr [id number] IV 10/14/24 22:00 10/15/24 21:59 10/14/24 21:47 42 MLS/HR Bumetanide 25 mg/ Miscellaneous 100 ml @ 8 mls/hr [id number] IV 10/14/24 13:15 10/14/24 23:11 8 MLS/HR Enoxaparin Sodium 80 mg Q24H SC 10/14/24 19:00 10/14/24 19:12 80 MG Examination Physical Examination General: Patient sedated and intubated. VT 500, F 28, FiO2 40%, PEEP 8. sat 94% HEENT: Normocephalic, atraumatic, moist mucous membranes Respiratory/pulmonary: There are mild crackles on bilateral lung ansari but no wheezes at this time. Cardiovascular: Normal heart sounds S1 and S2 with no associated murmurs Abdomen: Abdomen nondistended, soft to palpation with binder in place. There are three drains placed to in the left abdominal cavity and one in the right. There is also a right-sided cholecystostomy drain which is draining 30 cc in the last 12 hours. The three drains were labeled as #1 draining 25cc, #2 draining 60cc, #3 draining 5cc in the last 12 hrs. Extremities: There is no peripheral edema present at the lower extremities but there is significant swelling on bilateral upper extremities. Skin: No rashes or pruritus, there is no sacral edema present at this time. Neurological: RASS -3 laboratory and microbiology Laboratory Tests 10/15/24 03:18 Test 10/15/24 03:18 Range/Units Serum Glucose 132 H 74-106 mg/dL Microbiology Date/Time Source Procedure Growth Status 10/13/24 14:20 Blood Blood Culture - Preliminary NO GROWTH AFTER 24 HOURS OF INCUBATION. Resulted 10/10/24 13:45 Aspirate Gram Stain - Final Resulted 10/10/24 13:45 Aspirate Body Fluid Culture - Preliminary Resulted 10/05/24 15:05 Voided Urine Urine Culture - Final Complete 10/04/24 17:10 Nose MRSA Screen - Final Complete Problem List/Assessment/Plan Problem List/Assessment/Plan Assessment/Plan Acute kidney injury likely acute tubular necrosis with a FeNa >2% (5.85) Septic shock due to perforated peptic ulceration and peritonitis Hemodynamic shock with severe acute anemia likely due to above, requiring PRBCs transfusion Status post exploratory laparotomy with three intra-abdominal drains placement (10/04/24) Status post cholecystostomy drain placed Acute hypoxyc/hypercapnic respiratory failure requiring mechanical ventilation Possible gram+/- bacterial pneumonia Plan -total urine output in the last 24 hours: In's of 3795 cc, out's of 3625 cc for a positive balance of 170 cc. Total urine output was 1250 cc -kidney function slightly worsening, creatinine to the increased to 5.86 and BUN 99 -Decrease bumetanide drip to 0.5 milligram/hour -calculated FeNa of 5.85% -ABG was reviewed showing a mixed metabolic acidosis with respiratory alkalosis -Will schedule patient for HD tomorrow. Goals of care discussed with nurse and boarding specialist Plan discussed with Dr. Almanzar Plan discussed with: Other My Orders My Orders Orders - SILAS STAHL RESIDENT Procedure Category Date Status Time Give Un-Diluted PHA 10/14/24 In Process (Gi... W/Bumetanide 13:15 Dietary Evaluation Review Comments: 1. Continue TPN to meet at least 75% estimated needs 2. Continue current POC Expected Outcomes/Goals: FU 2-3 days to meet adequate energy & protein within 7 days of NPO CC Plasma Assessment Blood Product Administration S: [id number] SILAS STAHL RESIDENT October 15, 2024 09:54
[2024-10-15 10:06] LABS: Glucose, Body Fluid 83.0 mg/dL (.); LD, Body Fluid 747.0 IU/L (.)
[2024-10-15] MEDS: BUMETANIDE INJECTION 12.5 MG in GIVE UN-DILUTED 0 ML IV SCH (11:45)
--- NOTE | 2024-10-15 14:08 | DVHPN2 ---
Progress Note - Dictate Date Seen: October 15, 2024 Has the PT tested + for MRSA If YES, has PT been informed?: No Medical Necessity Reason Pt with a Central, PICC or Fol: Yes The following are medically ne: Gómez Catheter Reason for gómez catheter: Strict I&O vital signs Vital Sign Date Time Temp Pulse Resp B/P (MAP) Pulse Ox O2 Delivery O2 Flow Rate FiO2 10/15/24 13:55 116/54 10/15/24 12:15 78 28 92 60 10/15/24 10:00 Mechanical Ventilator+ 10/15/24 09:00 98.8 98.8 Total Intake and Output 10/14/24 10/14/24 10/15/24 15:00 23:00 07:00 Intake Total 1543.320 ml 883.654 ml 1261.096 ml Output Total 2205 ml 1420 ml Balance 1543.320 ml -1321.346 ml -158.904 ml medications Current Medications Medications Dose Ordered Sig/Wally Route Start Time Stop Time Status Last Admin Dose Admin Fentanyl Citrate 250 ml @ 2.5 mls/hr Q24H IV 10/04/24 09:45 10/15/24 13:31 32.5 MLS/HR Ondansetron HCl 4 mg Q4HP PRN IV 10/04/24 11:45 Morphine Sulfate 2 mg Q4HPRN PRN IV 10/04/24 11:45 Nitroglycerin 0.4 mg Q5MINP PRN SL 10/04/24 11:45 Morphine Sulfate 2 mg Q30M PRN IV 10/04/24 11:45 Lorazepam 50 mg/ Sodium Chloride 50 ml @ 1 mls/hr Q24H IV 10/04/24 18:15 Cancel Midazolam HCl 50 ml @ 1 mls/hr Q24H IV 10/04/24 18:30 10/15/24 06:07 5 MLS/HR Vasopressin 20 units/Sodium Chloride 100 ml @ 12 mls/hr Q8H20M IV 10/04/24 20:30 10/15/24 09:41 9 MLS/HR Acetaminophen 650 mg Q6HPRN PRN ND 10/04/24 21:00 10/11/24 15:19 650 MG Amino Acids 0 ml @ 0 mls/hr PER PHARMACY IV 10/05/24 14:30 UNV Amino Acids 0 ml @ 0 mls/hr PER PHARMACY IV 10/05/24 14:30 Diagnostic Test (Pha) 1 strip Q6HR 10/05/24 18:00 10/15/24 11:13 1 STRIP Insulin Human Regular FOLLOW SLIDING SCALE Q6HR SC 10/05/24 18:00 10/15/24 11:13 2 UNITS Dextrose 50 ml UD IV 10/05/24 14:45 Meropenem 50 ml @ 17 mls/hr Q12HR IV 10/07/24 10:00 UNV Micafungin Sodium 100 mg/Sodium Chloride 100 ml @ 100 mls/hr DAILY IV 10/07/24 10:00 10/15/24 10:41 100 MLS/HR Labetalol HCl 10 mg Q2HPRN PRN IV 10/08/24 09:30 Propofol 100 ml @ 2.181 mls/ hr Q24H IV 10/10/24 10:30 10/15/24 12:39 6.543 MLS/HR Pantoprazole Sodium 40 mg DAILY IV 10/12/24 10:00 10/15/24 10:41 40 MG Linezolid 300 ml @ 150 mls/hr Q12HR IV 10/13/24 10:00 10/15/24 10:41 150 MLS/HR Levalbuterol HCl 0.625 mg Q6HR NEB 10/13/24 12:00 10/15/24 12:15 0.625 MG Ipratropium Topaz 0.5 mg Q6HR NEB 10/13/24 12:00 10/15/24 12:15 0.5 MG Meropenem 50 ml @ 17 mls/hr Q12H IV 10/13/24 14:00 10/15/24 14:06 17 MLS/HR Norepinephrine Bitartrate 32 mg/ Sodium Chloride 250 ml @ 0.938 mls/ hr Q24H IV 10/14/24 10:15 10/14/24 10:54 14.063 MLS/HR Sodium Chloride 30 meq/Sodium Acetate 80 meq/ Calcium Gluconate 4.65 meq/ Magnesium Sulfate 8 meq/ Multivitamins 10 ml/Amino Acids/ Dextrose 1,019.5 ml @ 42 mls/hr [id number] IV 10/14/24 22:00 10/15/24 21:59 10/14/24 21:47 42 MLS/HR Enoxaparin Sodium 80 mg Q24H SC 10/14/24 19:00 10/14/24 19:12 80 MG Bumetanide 12.5 mg/Miscellaneous 50 ml @ 2 mls/hr Q24H IV 10/15/24 11:45 Sodium Chloride 60 meq/Sodium Acetate 60 meq/ Potassium Chloride 10 meq/ Calcium Gluconate 4.65 meq/ Magnesium Sulfate 8 meq/ Multivitamins 10 ml/Amino Acids/ Dextrose/Purified Water 1,022 ml @ 42 mls/hr [id number] IV 10/15/24 22:00 10/16/24 21:59 laboratory and microbiology Laboratory Tests 10/15/24 03:18 Test 10/15/24 03:18 Range/Units Serum Glucose 132 H 74-106 mg/dL Assessment/Plan Impression Acute hypoxemic respiratory failure Perforated viscus Septic shock Smoker Patient seen and examined in ICU Events On mechanical ventilation S/p intubation PEEP 8, FiO2 70% Remains hypoxemic On Bumex drip for fluid overload ? HD defer to nephrology Copious mucus secretions reported We will consider bronchoscopy Patient can not be weaned S/p cholecystic drain placement S/p ex lap and repair Labs and imaging reviewed ABG reviewed Management Vent support Titrate to maintain sats 90% or above Continue antibiotics F/u cultures Bronchodilators Monitor renal function Monitor electrolytes Supplement as needed Pressors as needed for hemodynamic support To maintain a mean arterial pressure of 65 mmHg F/u GI DVT prophylaxis Critical care time 35 minutes Dietary Evaluation Review Comments: 1. Continue TPN to meet at least 75% estimated needs 2. Continue current POC Expected Outcomes/Goals: FU 2-3 days to meet adequate energy & protein within 7 days of NPO Plan discussed with: Other (rn) CC Plasma Assessment Blood Product Administration S: [id number] VALENTE DEE MD October 15, 2024 14:08
[2024-10-15] MEDS: GASTROGRAFIN 120 ML SOL ONE (14:22)
[2024-10-15] MEDS: HEPARIN 1,000 UNITS/ml 1ML VIAL IV ONE (17:00)
--- NOTE | 2024-10-15 17:30 | DVHNC2 ---
Central Line Recorder of insertion practice: Pharmacy Picking Tech Occupation of grapple crew leader: Other (Junito Pike NP) Indication: Other (Hemodialysis) Room prepared for procedure: Yes Pharmacy Picking Tech performed hand hygien: Yes Maximal sterile barrier precau: Mask/Eye shield, Sterile gown, Cap, Sterlie gloves, Large sterlie drape Skin Preparation: Chlorhexidine gluconate Skin preparation completely dr: Yes Insertion site: Left, Internal jugular Number of lumens: 2 Central line exchanged over a: No Antiseptic ointment applied to: No Post Assessment: Chest X-Ray, Pneumothorax Informed consent obtained: Yes Risks/benefits/alt described: Yes Notes EBL: 5ml Ultrasound CPT code: 67644 Date of Service: October 15, 2024 Billing Provider: CHEYENNE PIKE NP Common Visit Codes: PROCEDURE ONLY Procedure Codes: [id number] NON-TUNNEL CV CATH CHEYENNE PIKE NP October 15, 2024 17:30
--- NOTE | 2024-10-15 18:16 | DVH ---
CHEST RADIOGRAPH Indication: VERIFY ANGEL CATHETER PLACEMENT PLEASE Technique: Single frontal view of the chest was obtained Comparison: XY CHEST PORTABLE on DOS: 10/15/24, XY CHEST PORTABLE on DOS: 10/14/24, XY CHEST PORTABLE o n DOS: 10/14/24 FINDINGS: Lines and Tubes: Left IJ approach central venous catheter terminating within the right distal IJ. Rig ht IJ approach central venous catheter terminating over the proximal to mid SVC. Endotracheal and ent ayesha tubes in satisfactory position. Lungs: Relatively unchanged Opacities of bilateral lungs with obscuration of bilateral hemidiaphragm . No pneumothorax. Cardiomediastinal contours: Limited evaluation of the Heart size due to Opacification of bilateral he mithorax. Bones: No acute osseous abnormality. IMPRESSION: Malpositioned left IJ approach central venous catheter terminating of the distal right IJ. Right IJ approach central venous catheter, endotracheal and enteric tubes are in satisfactory positio n. Unchanged opacities of bilateral lungs. Possible bilateral pleural effusions.
[2024-10-15] MEDS: ACETYLCYSTEINE 10 %(100MG/ML) SOL 4ML ONE (18:27)
[2024-10-15] MEDS: TPN PER PHARMACY IV NR (21:36)
[2024-10-16] VITALS (100 sets, daily range): BP systolic 60–175; BP diastolic 26–85; PULSE 77–97; RESP 21–28; TEMP 98.1–99; O2SAT 91–100
[2024-10-16 04:12] LABS: Hematocrit 25.6 % (41.0-53.0); Hemoglobin 8.7 g/dL (13.5-17.5); Mean Corpuscular Hemoglobin 29.0 pg (28.0-32.0); Mean Corpuscular Volume 85.8 fL (80.0-100.0); Nucleated Red Blood Cells % 0.0 %
[2024-10-16 04:27] LABS: Alanine Aminotransferase 30 U/L (7-40)
[2024-10-16 04:28] LABS: Anion Gap 14 (5-15); BUN/Creatinine Ratio 17.4 (10.0-20.0); Carbon Dioxide 25 mmol/L (20-31); Magnesium 2.5 mg/dL (1.6-2.6); Potassium 4.9 mmol/L (3.5-5.1)
[2024-10-16 04:42] LABS: Albumin 2.4 g/dL (3.2-4.8); Alkaline Phosphatase 130 U/L (46-116); Bilirubin, Total 3.1 mg/dL (0.2-1.0); Blood Urea Nitrogen 110 mg/dL (9-23); Calcium 7.1 mg/dL (8.7-10.4); Chloride 94 mmol/L (98-107); Glucose 127 mg/dL (74-106); Sodium 133 mmol/L (136-145); Total Protein 5.3 g/dL (5.7-8.2)
--- NOTE | 2024-10-16 05:22 | DVH ---
CLINICAL HISTORY: r/o persistent leak from repaired perf.Ulcer COMPARISON: None CONTRAST: Gastrografin PROCEDURE/FINDINGS: Nonspecific bowel-gas pattern. Surgical drains in the abdomen and pelvis. Enteric contrast overlies the stomach. Enteric contrast opacifies the distended stomach. Serpiginous contrast is seen to the right of the L2 vertebral body possibly representing persistent l eak. CT of the abdomen and pelvis with oral contrast can be obtained to further evaluate if clinically ind icated.
--- NOTE | 2024-10-16 05:29 | DVH ---
EXAM: XR Chest, 1 View CLINICAL INDICATION: pna TECHNIQUE: Frontal view of the chest. COMPARISON: XY CHEST PORTABLE on DOS: 10/15/24, XY CHEST PORTABLE on DOS: 10/15/24, XY CHEST PORTABLE on DOS: 10/14/24, XY CHEST PORTABLE on DOS: 10/14/24, XY CHEST PORTABLE on DOS: 10/13/24 FINDINGS: LUNGS AND PLEURAL SPACES: Congestion and edema. Pneumonia can not be excluded. No pneumothorax. HEART: Unremarkable. No cardiomegaly. MEDIASTINUM: Unremarkable. Normal mediastinal contour. BONES/JOINTS: Unremarkable. No acute fracture. TUBES, LINES AND DEVICES: Right internal jugular central venous catheter tip in the superior vena c rosaline. The endotracheal tube (ETT) is in satisfactory position. Enteric tube tip in the stomach. OTHER FINDINGS: . . IMPRESSION: Congestion and edema. Pneumonia can not be excluded.
[2024-10-16 06:42] LABS: Base Excess -6.8 mmol/L (-2.0-3.0)
[2024-10-16] MEDS: OMNIPAQUE 12mg/ml 500ml ORAL SOLUTION PO ONE (06:51)
--- NOTE | 2024-10-16 08:11 | DVHPN2 ---
Subjective Patient intubated and sedated Reviewed: Care Plan, H&P, Labs, Medications, Previous Orders, Radiology, Other (Consultants) Changes from previous H/P or p: No Changes General: Per HPI Objective Vitals Vital Signs Date Time Temp Pulse Resp B/P (MAP) Pulse Ox O2 Delivery O2 Flow Rate FiO2 10/16/24 07:11 77 28 126/57 (80) 94 80 10/16/24 06:00 Mechanical Ventilator+ 10/16/24 03:45 98.1 98.1 Intake/Output Intake and Output 10/16/24 07:00 Intake Total 3294.049 ml Output Total 2825 ml Balance 469.049 ml Intake Oral 120 ml IV Total 3174.049 ml Output Urine Total 2500 ml Gastric Drainage Total 100 ml Drainage Total 205 ml Other 20 ml General Appearance: moderate distress, Other HEENT: Atraumatic, PERRLA Lungs: Other Cardiovascular: Regular rate, Normal S1, Normal S2 Abdomen: Other Skin: Dry, Intact, Wounds, Other Psych/Mental Status: Other Medications Current Medications Medications Dose Ordered Sig/Wally Route Start Time Stop Time Status Last Admin Dose Admin Fentanyl Citrate 250 ml @ 2.5 mls/hr Q24H IV 10/04/24 09:45 10/16/24 04:37 32.5 MLS/HR Ondansetron HCl 4 mg Q4HP PRN IV 10/04/24 11:45 Morphine Sulfate 2 mg Q4HPRN PRN IV 10/04/24 11:45 Nitroglycerin 0.4 mg Q5MINP PRN SL 10/04/24 11:45 Morphine Sulfate 2 mg Q30M PRN IV 10/04/24 11:45 Lorazepam 50 mg/ Sodium Chloride 50 ml @ 1 mls/hr Q24H IV 10/04/24 18:15 Cancel Midazolam HCl 50 ml @ 1 mls/hr Q24H IV 10/04/24 18:30 10/16/24 02:10 5 MLS/HR Vasopressin 20 units/Sodium Chloride 100 ml @ 12 mls/hr Q8H20M IV 10/04/24 20:30 10/15/24 21:30 9 MLS/HR Acetaminophen 650 mg Q6HPRN PRN UT 10/04/24 21:00 10/11/24 15:19 650 MG Amino Acids 0 ml @ 0 mls/hr PER PHARMACY IV 10/05/24 14:30 UNV Amino Acids 0 ml @ 0 mls/hr PER PHARMACY IV 10/05/24 14:30 Diagnostic Test (Pha) 1 strip Q6HR 10/05/24 18:00 10/16/24 06:00 1 STRIP Insulin Human Regular FOLLOW SLIDING SCALE Q6HR SC 10/05/24 18:00 10/15/24 11:13 2 UNITS Dextrose 50 ml UD IV 10/05/24 14:45 Meropenem 50 ml @ 17 mls/hr Q12HR IV 10/07/24 10:00 UNV Micafungin Sodium 100 mg/Sodium Chloride 100 ml @ 100 mls/hr DAILY IV 10/07/24 10:00 10/15/24 10:41 100 MLS/HR Labetalol HCl 10 mg Q2HPRN PRN IV 10/08/24 09:30 Propofol 100 ml @ 2.181 mls/ hr Q24H IV 10/10/24 10:30 10/16/24 03:27 10.905 MLS/HR Pantoprazole Sodium 40 mg DAILY IV 10/12/24 10:00 10/15/24 10:41 40 MG Linezolid 300 ml @ 150 mls/hr Q12HR IV 10/13/24 10:00 10/15/24 21:36 150 MLS/HR Levalbuterol HCl 0.625 mg Q6HR NEB 10/13/24 12:00 10/16/24 05:36 0.625 MG Ipratropium [place] 0.5 mg Q6HR NEB 10/13/24 12:00 10/16/24 05:36 0.5 MG Meropenem 50 ml @ 17 mls/hr Q12H IV 10/13/24 14:00 10/16/24 02:09 17 MLS/HR Norepinephrine Bitartrate 32 mg/ Sodium Chloride 250 ml @ 0.938 mls/ hr Q24H IV 10/14/24 10:15 10/14/24 10:54 14.063 MLS/HR Enoxaparin Sodium 80 mg Q24H SC 10/14/24 19:00 10/14/24 19:12 80 MG Bumetanide 12.5 mg/Miscellaneous 50 ml @ 2 mls/hr Q24H IV 10/15/24 11:45 10/16/24 02:11 2 MLS/HR Sodium Chloride 60 meq/Sodium Acetate 60 meq/ Potassium Chloride 10 meq/ Calcium Gluconate 4.65 meq/ Magnesium Sulfate 8 meq/ Multivitamins 10 ml/Amino Acids/ Dextrose/Purified Water 1,022 ml @ 42 mls/hr [id number] IV 10/15/24 22:00 10/16/24 21:59 10/15/24 21:36 42 MLS/HR Laboratory Results Laboratory Tests 10/16/24 03:20 Chemistry Test 10/16/24 03:20 Albumin 2.4 g/dL (3.2-4.8) L Calcium Level 7.1 mg/dL (8.7-10.4) L Magnesium Level 2.5 mg/dL (1.6-2.6) Phosphorus Level 8.4 mg/dL (2.4-5.1) H Total Protein 5.3 g/dL (5.7-8.2) L LFT Test 10/16/24 03:20 Alanine Aminotransferase (ALT) 30 U/L (7-40) Alkaline Phosphatase 130 U/L (46-116) H Aspartate Amino Transferase (AST) 67 U/L (13-40) H Total Bilirubin 3.1 mg/dL (0.2-1.0) H Urinalysis Test 10/05/24 15:05 10/11/24 18:00 Urine Color Light-yellow (Yellow) Urine Clarity Hazy (Clear) H Urine pH 5.5 (5.0-9.0) Urine Specific Leland 1.018 (1.001-1.035) Urine Protein 1+ (Negative) H Urine Ketones Negative (Negative) Urine Blood 3+ /uL (Negative) H Urine Nitrite Negative (Negative) Urine Bilirubin Negative (Negative) Urine Urobilinogen Normal mg/dL (Negative) Urine Leukocyte Esterase Negative /uL (Negative) Urine RBC 1 /hpf (0 - 3) Urine Microscopic WBC 9 /HPF (0-3) H Urine Squamous Epithelial Cells Few /hpf (<5) Urine Bacteria Few /hpf (None Seen) H Urine Mucus Few (None Seen) Urine Glucose Trace mg/dL (Normal) Urine Total Protein 85.0 mg/dL (1-14) H Urine Creatinine 48.05 mg/dL (30.0-125.0) Urine Sodium 76 mmol/L (40-220) Blood Gas Results Test 10/16/24 06:34 Arterial Blood pH 7.221 (7.350-7.450) FiO2 % 80.0 Microbiology Microbiology Date/Time Source Procedure Growth Status 10/14/24 11:50 Pleural Fluid Gram Stain - Final Resulted 10/14/24 11:50 Pleural Fluid Aerobic Culture - Preliminary Resulted 10/13/24 22:00 Sputum Gram Stain - Final Resulted 10/13/24 22:00 Sputum Respiratory Culture - Preliminary Resulted 10/13/24 21:30 Voided Urine Urine Culture - Preliminary Resulted 10/13/24 14:20 Blood Blood Culture - Preliminary NO GROWTH AFTER 48 HOURS OF INCUBATION. Resulted 10/04/24 17:10 Nose MRSA Screen - Final Complete Labs and/or images reviewed: Labs reviewed by me, Image(s) reviewed by me Assessment/Plan Assessment/Plan Impression: -severe septic shock -pneumoperitoneum secondary to perforated gastric ulcer -acute kidney injury, hemodynamically mediated, probable VMN -acute hypoxic respiratory failure -shock liver -nicotine dependence -history of CVA -right upper extremity DVT -multifocal pneumonia, probable Gram-positive/Gram-negative etiology -anemia secondary to nutrition, renal failure Plan: Events: Hemodialysis catheter malpositioned placement. Replaced by myself this a.m.. Plans for HD this a.m.. Questionable stress has been cessation contrast upper GI series. Plans for CT scan of abdomen and pelvis once patient is more stable. FiO2 requirements up to 80% now. Worsening bilateral opacities. Plans for bronchoscopy today. -continue antimicrobial coursed to Meropenem, micafungin, add Zyvox -TPN -weaned vasopressors to keep map greater than 65 mmHg -Protonix 40 mg IV twice a day -further recommendations per surgical consultation -continue current sedation -continue Bumex drip. Nephrology recommendations appreciated -continue anticoagulation with Lovenox. -repeat labs, chest x-ray, ABG in a.m. -Discussed plan of care with . All questions answered. Critical care time spent with patient discussing and formulating plan of care: 90 minutes. This does not include time spent performing procedures. This medical document was created using an electronic medical record system with [employer] system. Although this document has been carefully reviewed, there may still be some phonetic and typographical errors. These areas are purely typographical due to imperfections of the software programs, and do not reflect any compromise in the patient's medical care. Plan discussed with: Patient, Other (RN) My Orders Orders - CHEYENNE PIKE NP Procedure Category Date Status Time Kub Abdomen Single XY 10/16/24 Logged View 05:00 Us Guided Vascular US 10/15/24 Logged Access 16:42 Chest Portable XY 10/15/24 Resulted 17:15 Abg W/ Co-Ox RT 10/16/24 Logged 06:00 Chest Xray 1 View XY 10/16/24 Logged 07:54 Date of Service: October 16, 2024 Billing Provider: CHEYENNE PIKE NP Common Visit Codes: 28622-SVEACLLX CARE 30-74 MIN, 54616-[id number] CARE-EACH +30MIN CHEYENNE PIKE NP October 16, 2024 08:11
--- NOTE | 2024-10-16 08:30 | DVH ---
CHEST RADIOGRAPH Indication: Placement of new dialysis catheter Technique: Single frontal view of the chest was obtained COMPARISON: XY CHEST PORTABLE on DOS: 10/16/24, XY CHEST PORTABLE on DOS: 10/15/24, XY CHEST PORTABLE o n DOS: 10/15/24, XY CHEST PORTABLE on DOS: 10/14/24, XY CHEST PORTABLE on DOS: 10/14/24 FINDINGS: Lines and Tubes: Endotracheal tube, enteric catheter, left and right central venous catheter in satis factory position. Lungs: Multifocal airspace disease Pleura: No effusion. No pneumothorax. Cardiomediastinal contours: Unremarkable Bones: Unremarkable IMPRESSION: Lines and tubes in satisfactory position. No significant interval change.
--- NOTE | 2024-10-16 08:35 | DVH ---
Date: 10/16/2024 08:08 AM Examination: XY KUB ABDOMEN SINGLE VIEW History: pain; F/U UGI W/SB-R/O PERFORATION Comparison: None TECHNIQUE: Frontal views of the abdomen was obtained. FINDINGS/IMPRESSION: Bowel gas pattern is unremarkable. Enteric tube tip projects over the expected region of the stomach. Contrast is visualized in the stomach and colon. Multifocal consolidative opacities are visualized at the lung bases. Surgical catheters project over the abdomen.
--- NOTE | 2024-10-16 09:37 | DVHPN2 ---
Progress Note Date Seen: October 16, 2024 Resident Creating Document: SILAS STAHL RESIDENT Has the PT tested + for MRSA If YES, has PT been informed?: No Medical Necessity Reason Pt with a Central, PICC or Fol: Yes The following are medically ne: Gómez Catheter Reason for gómez catheter: Strict I&O Subjective Review of Systems Patient seen and examined at bedside. Patient is currently sedated and intubated on the following ventilatory settings: VT 550, F 28, FiO2 80%, PEEP 8, Sat 94%. Yesterday in the afternoon FiO2 had to be increased to 80%. Yesterday, upper GI series with Gastrografin was performed and mild amount of contrast was seen in the right of the L2 vertebral body possibly representing a persistent leak. Surgery is on board and is following the case. Yesterday we will decrease Bumex drip to 0.5 milligram/hour and a temporary catheter was placed for starting hemodialysis. Patient was scheduled for hemodialysis today but catheter needs to be replaced in the femoral area, we will reschedule hemodialysis for tomorrow a.m.. Creatinine keeps rising from 5.86 to 6.31, BUN is 110. Total in's of 3401 cc, out's of 2825 cc for a positive balance of 576 cc in the last 24 hours. The abdominal KWAN drains, #1 draining 50cc, #2 30cc, #3 5cc and cholostomy tube drain 20cc in the last 12 hours. On my examination, the patient still has bilateral upper extremity mild edema and swelling but there is no peripheral edema in the lower extremities. Chest x-ray this morning showed bilateral pulmonary congestion, we will re-evaluate with a chest x-ray after dialysis and patient was possibly scheduled for bronchoscopy. ROS unable to obtain due to patient's current status intubated and sedated. Objective vital signs Vital Sign Date Time Temp Pulse Resp B/P (MAP) Pulse Ox O2 Delivery O2 Flow Rate FiO2 10/16/24 07:11 77 28 126/57 (80) 94 80 10/16/24 06:00 Mechanical Ventilator+ 10/16/24 03:45 98.1 98.1 Total Intake and Output 10/15/24 10/15/24 10/16/24 15:00 23:00 07:00 Intake Total 1262.344 ml 954.344 ml 1077.361 ml Output Total 1470 ml 1355 ml Balance 1262.344 ml -515.656 ml -277.639 ml medications Current Medications Medications Dose Ordered Sig/Wally Route Start Time Stop Time Status Last Admin Dose Admin Fentanyl Citrate 250 ml @ 2.5 mls/hr Q24H IV 10/04/24 09:45 10/16/24 04:37 32.5 MLS/HR Ondansetron HCl 4 mg Q4HP PRN IV 10/04/24 11:45 Morphine Sulfate 2 mg Q4HPRN PRN IV 10/04/24 11:45 Nitroglycerin 0.4 mg Q5MINP PRN SL 10/04/24 11:45 Morphine Sulfate 2 mg Q30M PRN IV 10/04/24 11:45 Lorazepam 50 mg/ Sodium Chloride 50 ml @ 1 mls/hr Q24H IV 10/04/24 18:15 Cancel Midazolam HCl 50 ml @ 1 mls/hr Q24H IV 10/04/24 18:30 10/16/24 02:10 5 MLS/HR Vasopressin 20 units/Sodium Chloride 100 ml @ 12 mls/hr Q8H20M IV 10/04/24 20:30 10/15/24 21:30 9 MLS/HR Acetaminophen 650 mg Q6HPRN PRN LA 10/04/24 21:00 10/11/24 15:19 650 MG Amino Acids 0 ml @ 0 mls/hr PER PHARMACY IV 10/05/24 14:30 UNV Amino Acids 0 ml @ 0 mls/hr PER PHARMACY IV 10/05/24 14:30 Diagnostic Test (Pha) 1 strip Q6HR 10/05/24 18:00 10/16/24 06:00 1 STRIP Insulin Human Regular FOLLOW SLIDING SCALE Q6HR SC 10/05/24 18:00 10/15/24 11:13 2 UNITS Dextrose 50 ml UD IV 10/05/24 14:45 Meropenem 50 ml @ 17 mls/hr Q12HR IV 10/07/24 10:00 UNV Micafungin Sodium 100 mg/Sodium Chloride 100 ml @ 100 mls/hr DAILY IV 10/07/24 10:00 10/15/24 10:41 100 MLS/HR Labetalol HCl 10 mg Q2HPRN PRN IV 10/08/24 09:30 Propofol 100 ml @ 2.181 mls/ hr Q24H IV 10/10/24 10:30 10/16/24 03:27 10.905 MLS/HR Pantoprazole Sodium 40 mg DAILY IV 10/12/24 10:00 10/15/24 10:41 40 MG Linezolid 300 ml @ 150 mls/hr Q12HR IV 10/13/24 10:00 10/15/24 21:36 150 MLS/HR Levalbuterol HCl 0.625 mg Q6HR NEB 10/13/24 12:00 10/16/24 05:36 0.625 MG Ipratropium [place] 0.5 mg Q6HR NEB 10/13/24 12:00 10/16/24 05:36 0.5 MG Meropenem 50 ml @ 17 mls/hr Q12H IV 10/13/24 14:00 10/16/24 02:09 17 MLS/HR Norepinephrine Bitartrate 32 mg/ Sodium Chloride 250 ml @ 0.938 mls/ hr Q24H IV 10/14/24 10:15 10/16/24 08:11 3.75 MLS/HR Enoxaparin Sodium 80 mg Q24H SC 10/14/24 19:00 10/14/24 19:12 80 MG Bumetanide 12.5 mg/Miscellaneous 50 ml @ 2 mls/hr Q24H IV 10/15/24 11:45 10/16/24 02:11 2 MLS/HR Sodium Chloride 60 meq/Sodium Acetate 60 meq/ Potassium Chloride 10 meq/ Calcium Gluconate 4.65 meq/ Magnesium Sulfate 8 meq/ Multivitamins 10 ml/Amino Acids/ Dextrose/Purified Water 1,022 ml @ 42 mls/hr [id number] IV 10/15/24 22:00 10/16/24 21:59 10/15/24 21:36 42 MLS/HR Examination Physical Examination General: Patient sedated and intubated. VT 550, F 28, FiO2 80%, PEEP 8. sat 94% HEENT: Normocephalic, atraumatic, moist mucous membranes Respiratory/pulmonary: There are mild crackles on bilateral lung ansari but no wheezes at this time. Cardiovascular: Normal heart sounds S1 and S2 with no associated murmurs Abdomen: Abdomen nondistended, soft to palpation with binder in place. There are three drains placed to in the left abdominal cavity and one in the right. There is also a right-sided cholecystostomy drain which is draining 20 cc in the last 12 hours. The three drains were labeled as #1 draining 50cc, #2 draining 30cc, #3 draining 5cc in the last 12 hrs. Extremities: There is no peripheral edema present at the lower extremities but there is significant swelling on bilateral upper extremities. Skin: No rashes or pruritus, there is no sacral edema present at this time. Neurological: RASS -3 laboratory and microbiology Laboratory Tests 10/16/24 03:20 Test 10/16/24 03:20 Range/Units Serum Glucose 127 H 74-106 mg/dL Microbiology Date/Time Source Procedure Growth Status 10/14/24 11:50 Pleural Fluid Gram Stain - Final Resulted 10/14/24 11:50 Pleural Fluid Aerobic Culture - Preliminary Resulted 10/13/24 22:00 Sputum Gram Stain - Final Resulted 10/13/24 22:00 Sputum Respiratory Culture - Preliminary Resulted 10/13/24 21:30 Voided Urine Urine Culture - Preliminary Resulted 10/13/24 14:20 Blood Blood Culture - Preliminary NO GROWTH AFTER 48 HOURS OF INCUBATION. Resulted 10/04/24 17:10 Nose MRSA Screen - Final Complete Problem List/Assessment/Plan Problem List/Assessment/Plan Assessment/Plan Acute kidney injury likely acute tubular necrosis with a FeNa >2% (5.85) Septic shock due to perforated peptic ulceration and peritonitis Hemodynamic shock with severe acute anemia likely due to above, requiring PRBCs transfusion Status post exploratory laparotomy with three intra-abdominal drains placement (10/04/24) Status post cholecystostomy drain placed Acute hypoxyc/hypercapnic respiratory failure requiring mechanical ventilation Possible gram+/- bacterial pneumonia Plan -total urine output in the last 24 hours: In's of 3401 cc, out's of 2825 cc for a positive balance of 576 cc. -kidney function keeps worsening, today creatinine is 6.31 and BUN 110 -Patient will be rescheduled for HD tomorrow Am, through temp femoral catheter -continue bumetanide drip to 0.5 milligram/hour -ABG was reviewed showing a mixed metabolic acidosis with respiratory alkalosis Goals of care discussed with nurse and plant quality manager Plan discussed with Dr. Almanzar Plan discussed with: Other My Orders My Orders Orders - SILAS STAHL Procedure Category Date Status Time Communication Order ORDERS 10/15/24 Transmitted 11:31 Give Un-Diluted PHA 10/15/24 In Process (Gi... W/Bumetanide 11:45 Dietary Evaluation Review Comments: 1. Continue TPN to meet at least 75% estimated needs 2. Continue current POC Expected Outcomes/Goals: FU 2-3 days to meet adequate energy & protein within 7 days of NPO CC Plasma Assessment Blood Product Administration S: [id number] SILAS STAHL RESIDENT October 16, 2024 09:37
--- NOTE | 2024-10-16 10:47 | DVHPN2 ---
Progress Note Date Seen: October 16, 2024 Has the PT tested + for MRSA If YES, has PT been informed?: No Medical Necessity Reason Pt with a Central, PICC or Fol: Yes The following are medically ne: Gómez Catheter Reason for gómez catheter: Strict I&O Objective vital signs Vital Sign Date Time Temp Pulse Resp B/P (MAP) Pulse Ox O2 Delivery O2 Flow Rate FiO2 10/16/24 09:27 83 28 165/70 (101) 96 80 10/16/24 06:00 Mechanical Ventilator+ 10/16/24 03:45 98.1 98.1 Total Intake and Output 10/15/24 10/15/24 10/16/24 15:00 23:00 07:00 Intake Total 1262.344 ml 954.344 ml 1077.361 ml Output Total 1470 ml 1355 ml Balance 1262.344 ml -515.656 ml -277.639 ml medications Current Medications Medications Dose Ordered Sig/Wally Route Start Time Stop Time Status Last Admin Dose Admin Fentanyl Citrate 250 ml @ 2.5 mls/hr Q24H IV 10/04/24 09:45 10/16/24 04:37 32.5 MLS/HR Ondansetron HCl 4 mg Q4HP PRN IV 10/04/24 11:45 Morphine Sulfate 2 mg Q4HPRN PRN IV 10/04/24 11:45 Nitroglycerin 0.4 mg Q5MINP PRN SL 10/04/24 11:45 Morphine Sulfate 2 mg Q30M PRN IV 10/04/24 11:45 Lorazepam 50 mg/ Sodium Chloride 50 ml @ 1 mls/hr Q24H IV 10/04/24 18:15 Cancel Midazolam HCl 50 ml @ 1 mls/hr Q24H IV 10/04/24 18:30 10/16/24 02:10 5 MLS/HR Vasopressin 20 units/Sodium Chloride 100 ml @ 12 mls/hr Q8H20M IV 10/04/24 20:30 10/16/24 09:20 9 MLS/HR Acetaminophen 650 mg Q6HPRN PRN [place] 10/04/24 21:00 10/11/24 15:19 650 MG Amino Acids 0 ml @ 0 mls/hr PER PHARMACY IV 10/05/24 14:30 UNV Amino Acids 0 ml @ 0 mls/hr PER PHARMACY IV 10/05/24 14:30 Diagnostic Test (Pha) 1 strip Q6HR 10/05/24 18:00 10/16/24 06:00 1 STRIP Insulin Human Regular FOLLOW SLIDING SCALE Q6HR SC 10/05/24 18:00 10/15/24 11:13 2 UNITS Dextrose 50 ml UD IV 10/05/24 14:45 Meropenem 50 ml @ 17 mls/hr Q12HR IV 10/07/24 10:00 UNV Micafungin Sodium 100 mg/Sodium Chloride 100 ml @ 100 mls/hr DAILY IV 10/07/24 10:00 10/16/24 10:16 100 MLS/HR Labetalol HCl 10 mg Q2HPRN PRN IV 10/08/24 09:30 Propofol 100 ml @ 2.181 mls/ hr Q24H IV 10/10/24 10:30 10/16/24 03:27 10.905 MLS/HR Pantoprazole Sodium 40 mg DAILY IV 10/12/24 10:00 10/16/24 10:16 40 MG Linezolid 300 ml @ 150 mls/hr Q12HR IV 10/13/24 10:00 10/15/24 21:36 150 MLS/HR Levalbuterol HCl 0.625 mg Q6HR NEB 10/13/24 12:00 10/16/24 05:36 0.625 MG Ipratropium [place] 0.5 mg Q6HR NEB 10/13/24 12:00 10/16/24 05:36 0.5 MG Meropenem 50 ml @ 17 mls/hr Q12H IV 10/13/24 14:00 10/16/24 02:09 17 MLS/HR Norepinephrine Bitartrate 32 mg/ Sodium Chloride 250 ml @ 0.938 mls/ hr Q24H IV 10/14/24 10:15 10/16/24 08:11 3.75 MLS/HR Enoxaparin Sodium 80 mg Q24H SC 10/14/24 19:00 10/14/24 19:12 80 MG Bumetanide 12.5 mg/Miscellaneous 50 ml @ 2 mls/hr Q24H IV 10/15/24 11:45 10/16/24 02:11 2 MLS/HR Sodium Chloride 60 meq/Sodium Acetate 60 meq/ Potassium Chloride 10 meq/ Calcium Gluconate 4.65 meq/ Magnesium Sulfate 8 meq/ Multivitamins 10 ml/Amino Acids/ Dextrose/Purified Water 1,022 ml @ 42 mls/hr [id number] IV 10/15/24 22:00 10/16/24 21:59 10/15/24 21:36 42 MLS/HR laboratory and microbiology Laboratory Tests 10/16/24 03:20 Test 10/16/24 03:20 Range/Units Serum Glucose 127 H 74-106 mg/dL Problem List/Assessment/Plan Problem List/Assessment/Plan 10/10/24 patient had exploratory operation with closure of perforated peptic ulceration about 5 days ago, now concern about possible cholecystitis. GB sludge,GB wall thickened and surounding edema,.LFT's elevated. [patient has history of heavy alcohol use(spouse report). LFTs elevation could be due to liver Ds but cholecystostomy is a reasonable next step, will follow with you 10/14/24 patient appears "surgically stable", will get gastrografin UGI prior to resuming gastric feedings 10/16/24 GASTROGRAFGIN UGI POSSIBLY WITH PERSISTENT LEAK FROM REPAIRED PYLORIC PERFORATION, I HAVE ORDERED A CT SCAN FOR CONFIRMATION Plan discussed with: Other Dietary Evaluation Review Comments: 1. Continue TPN to meet at least 75% estimated needs 2. Continue current POC Expected Outcomes/Goals: FU 2-3 days to meet adequate energy & protein within 7 days of NPO LOBO BOSWELL MD October 16, 2024 10:47
--- NOTE | 2024-10-16 12:08 | DVHNC2 ---
Procedure - Procedure bronchoscopy and bronchial wash Indication mucus plugging Procedure in detail consent was obtained time-out performed per protocol patient was placed on 100% FiO2. Flexible scope was systolic hospital through endotracheal tube tracheobronchial tree was examined. There were no endobronchial lesions back that were nonpurulent secretions and mucus plugs primarily in the lower lobes bilaterally. They were loosened up with normal saline and several-day suctioned. A separate specimen obtained and sent for Gram stain culture. At the end of the procedure the scope was removed VALENTE DEE MD October 16, 2024 12:08
--- NOTE | 2024-10-16 12:10 | DVHPN2 ---
Progress Note - Dictate Date Seen: October 16, 2024 Has the PT tested + for MRSA If YES, has PT been informed?: No Medical Necessity Reason Pt with a Central, PICC or Fol: Yes The following are medically ne: Gómez Catheter Reason for gómez catheter: Strict I&O vital signs Vital Sign Date Time Temp Pulse Resp B/P (MAP) Pulse Ox O2 Delivery O2 Flow Rate FiO2 10/16/24 11:42 83 28 162/83 (109) 98 80 10/16/24 10:00 Mechanical Ventilator+ 10/16/24 08:00 98.6 98.6 Total Intake and Output 10/15/24 10/15/24 10/16/24 15:00 23:00 07:00 Intake Total 1262.344 ml 954.344 ml 1182.516 ml Output Total 1470 ml 1355 ml Balance 1262.344 ml -515.656 ml -172.484 ml medications Current Medications Medications Dose Ordered Sig/Wally Route Start Time Stop Time Status Last Admin Dose Admin Fentanyl Citrate 250 ml @ 2.5 mls/hr Q24H IV 10/04/24 09:45 10/16/24 04:37 32.5 MLS/HR Ondansetron HCl 4 mg Q4HP PRN IV 10/04/24 11:45 Morphine Sulfate 2 mg Q4HPRN PRN IV 10/04/24 11:45 Nitroglycerin 0.4 mg Q5MINP PRN SL 10/04/24 11:45 Morphine Sulfate 2 mg Q30M PRN IV 10/04/24 11:45 Lorazepam 50 mg/ Sodium Chloride 50 ml @ 1 mls/hr Q24H IV 10/04/24 18:15 Cancel Midazolam HCl 50 ml @ 1 mls/hr Q24H IV 10/04/24 18:30 10/16/24 11:37 5 MLS/HR Vasopressin 20 units/Sodium Chloride 100 ml @ 12 mls/hr Q8H20M IV 10/04/24 20:30 10/16/24 09:20 9 MLS/HR Acetaminophen 650 mg Q6HPRN PRN [place] 10/04/24 21:00 10/11/24 15:19 650 MG Amino Acids 0 ml @ 0 mls/hr PER PHARMACY IV 10/05/24 14:30 UNV Amino Acids 0 ml @ 0 mls/hr PER PHARMACY IV 10/05/24 14:30 Diagnostic Test (Pha) 1 strip Q6HR 10/05/24 18:00 10/16/24 06:00 1 STRIP Insulin Human Regular FOLLOW SLIDING SCALE Q6HR SC 10/05/24 18:00 10/15/24 11:13 2 UNITS Dextrose 50 ml UD IV 10/05/24 14:45 Meropenem 50 ml @ 17 mls/hr Q12HR IV 10/07/24 10:00 UNV Micafungin Sodium 100 mg/Sodium Chloride 100 ml @ 100 mls/hr DAILY IV 10/07/24 10:00 10/16/24 10:16 100 MLS/HR Labetalol HCl 10 mg Q2HPRN PRN IV 10/08/24 09:30 Propofol 100 ml @ 2.181 mls/ hr Q24H IV 10/10/24 10:30 10/16/24 10:58 10.905 MLS/HR Pantoprazole Sodium 40 mg DAILY IV 10/12/24 10:00 10/16/24 10:16 40 MG Linezolid 300 ml @ 150 mls/hr Q12HR IV 10/13/24 10:00 10/15/24 21:36 150 MLS/HR Levalbuterol HCl 0.625 mg Q6HR NEB 10/13/24 12:00 10/16/24 11:42 0.625 MG Ipratropium [place] 0.5 mg Q6HR NEB 10/13/24 12:00 10/16/24 11:42 0.5 MG Meropenem 50 ml @ 17 mls/hr Q12H IV 10/13/24 14:00 10/16/24 02:09 17 MLS/HR Norepinephrine Bitartrate 32 mg/ Sodium Chloride 250 ml @ 0.938 mls/ hr Q24H IV 10/14/24 10:15 10/16/24 08:11 3.75 MLS/HR Enoxaparin Sodium 80 mg Q24H SC 10/14/24 19:00 10/14/24 19:12 80 MG Bumetanide 12.5 mg/Miscellaneous 50 ml @ 2 mls/hr Q24H IV 10/15/24 11:45 10/16/24 02:11 2 MLS/HR Sodium Chloride 60 meq/Sodium Acetate 60 meq/ Potassium Chloride 10 meq/ Calcium Gluconate 4.65 meq/ Magnesium Sulfate 8 meq/ Multivitamins 10 ml/Amino Acids/ Dextrose/Purified Water 1,022 ml @ 42 mls/hr [id number] IV 10/15/24 22:00 10/16/24 21:59 10/15/24 21:36 42 MLS/HR Sodium Chloride 100 meq/Sodium Acetate 30 meq/ Calcium Gluconate 6.95 meq/ Magnesium Sulfate 4 meq/ Multivitamins 10 ml/Amino Acids/ Dextrose 1,065.9462 ml @ 44 mls/hr [id number] IV 10/16/24 22:00 10/17/24 21:59 laboratory and microbiology Laboratory Tests 10/16/24 03:20 Test 10/16/24 03:20 Range/Units Serum Glucose 127 H 74-106 mg/dL Assessment/Plan Impression Acute hypoxemic respiratory failure Perforated viscus Septic shock Smoker Patient seen and examined in ICU Events On mechanical ventilation S/p intubation PEEP 8, FiO2 70% Remains hypoxemic s/p bronchoscopy secretions suctioned S/p cholecystic drain placement S/p ex lap and repair Labs and imaging reviewed ABG reviewed Management Vent support Titrate to maintain sats 90% or above Continue antibiotics F/u cultures Bronchodilators Monitor renal function Monitor electrolytes Supplement as needed HD per nephrology Pressors as needed for hemodynamic support To maintain a mean arterial pressure of 65 mmHg F/u GI DVT prophylaxis Critical care time 35 minutes Dietary Evaluation Review Comments: 1. Continue TPN to meet at least 75% estimated needs 2. Continue current POC Expected Outcomes/Goals: FU 2-3 days to meet adequate energy & protein within 7 days of NPO Protein Calorie Malnutrition: Severe (rn) Plan discussed with: Other (rn) CC Plasma Assessment Blood Product Administration S: [id number] VALENTE DEE MD October 16, 2024 12:10
[2024-10-16 12:13] LABS: Base Excess -1.5 mmol/L (-2.0-3.0)
--- NOTE | 2024-10-16 15:19 | DVHNC2 ---
Central Line Recorder of insertion practice: Shorts Sifter Occupation of clinical fellow: Other (Junito Pike RN) Indication: Other (Hemodialysis) Room prepared for procedure: Yes Shorts Sifter performed hand hygien: Yes Maximal sterile barrier precau: Mask/Eye shield, Sterile gown, Cap, Sterlie gloves, Large sterlie drape Skin Preparation: Chlorhexidine gluconate, Providine iodine Skin preparation completely dr: Yes Insertion site: Left, Femoral Central line catheter type: Dialysis non-tunneled Number of lumens: 2 Central line exchanged over a: Yes Antiseptic ointment applied to: Yes Post Assessment: Proper placement Informed consent obtained: Yes Notes Unable to perform HD appropriately through previously placed HD catheter. New catheter was placed to left femoral vein. Appropriate placement via ultrasound. Ultrasound CPT code: 20735. Date of Service: October 16, 2024 Billing Provider: CHEYENNE PIKE NP Common Visit Codes: PROCEDURE ONLY Procedure Codes: [id number] NON-TUNNEL CV CATH CHEYENNE PIKE NP October 16, 2024 15:19
[2024-10-16] MEDS: HEPARIN 1,000 UNITS/ml 1ML VIAL IV ONE (15:33)
[2024-10-16] MEDS: TPN PER PHARMACY IV NR (21:49)
[2024-10-17] VITALS (109 sets, daily range): BP systolic 70–192; BP diastolic 31–101; PULSE 64–101; RESP 27–29; TEMP 97.7–99.3; O2SAT 95–100
[2024-10-17 04:02] LABS: Hemoglobin 8.1 g/dL (13.5-17.5); Mean Corpuscular Hemoglobin 28.7 pg (28.0-32.0); Nucleated Red Blood Cells % 0.1 %
[2024-10-17 04:03] LABS: Alanine Aminotransferase 28 U/L (7-40); Anion Gap 15 (5-15); BUN/Creatinine Ratio 17.5 (10.0-20.0); Carbon Dioxide 24 mmol/L (20-31); Magnesium 2.4 mg/dL (1.6-2.6); Potassium 4.3 mmol/L (3.5-5.1)
[2024-10-17 04:05] LABS: Hematocrit 24.1 % (41.0-53.0); Mean Corpuscular Volume 85.1 fL (80.0-100.0)
[2024-10-17 04:15] LABS: Albumin 2.3 g/dL (3.2-4.8); Alkaline Phosphatase 152 U/L (46-116); Bilirubin, Total 3.2 mg/dL (0.2-1.0); Calcium 7.4 mg/dL (8.7-10.4); Chloride 94 mmol/L (98-107); Glucose 124 mg/dL (74-106); Sodium 133 mmol/L (136-145); Total Protein 5.4 g/dL (5.7-8.2)
[2024-10-17 04:16] LABS: Blood Urea Nitrogen 109 mg/dL (9-23)
--- NOTE | 2024-10-17 05:38 | DVH ---
EXAM: XR Chest, 1 View CLINICAL INDICATION: VENTED TECHNIQUE: Frontal view of the chest. COMPARISON: XY CHEST XRAY 1 VIEW on DOS: 10/16/24, XY CHEST PORTABLE on DOS: 10/16/24, XY CHEST PERLA BLE on DOS: 10/15/24, XY CHEST PORTABLE on DOS: 10/15/24, XY CHEST PORTABLE on DOS: 10/14/24 FINDINGS: LUNGS AND PLEURAL SPACES: Pulmonary congestion and edema. Pneumonia cannot be excluded. Bilateral bilateral pleural effusions. No pneumothorax. HEART: Unremarkable. No cardiomegaly. MEDIASTINUM: Unremarkable. Normal mediastinal contour. BONES/JOINTS: Unremarkable. No acute fracture. TUBES, LINES AND DEVICES: The endotracheal tube (ETT) is in satisfactory position. Right internal jugular central venous catheter tip in the superior vena cava. Enteric tube tip in the stomach. OTHER FINDINGS: . Left IJ. . . IMPRESSION: 1. Pulmonary congestion and edema. Pneumonia cannot be excluded. 2. Bilateral bilateral pleural effusions.
[2024-10-17 07:18] LABS: Base Excess -0.6 mmol/L (-2.0-3.0)
--- NOTE | 2024-10-17 08:32 | DVHPN2 ---
Subjective Patient intubated and sedated Reviewed: Care Plan, H&P, Labs, Medications, Previous Orders, Radiology, Other (Consultants) Changes from previous H/P or p: No Changes General: Per HPI Objective Vitals Vital Signs Date Time Temp Pulse Resp B/P (MAP) Pulse Ox O2 Delivery O2 Flow Rate FiO2 10/17/24 08:00 99.0 89 28 105/64 (78) 99 99.0 106/49 (68) 10/17/24 07:32 Mechanical Ventilator+ 50 50 Intake/Output Intake and Output 10/17/24 07:00 Intake Total 3459.262 ml Output Total 3065 ml Balance 394.262 ml Intake Oral 0 ml IV Total 3459.262 ml Output Urine Total 2525 ml Gastric Drainage Total 250 ml Drainage Total 135 ml Other 155 ml General Appearance: moderate distress, Other HEENT: Atraumatic, PERRLA Lungs: Other Cardiovascular: Regular rate, Normal S1, Normal S2 Abdomen: Other Skin: Dry, Intact, Wounds, Other Psych/Mental Status: Other Medications Current Medications Medications Dose Ordered Sig/Wally Route Start Time Stop Time Status Last Admin Dose Admin Fentanyl Citrate 250 ml @ 2.5 mls/hr Q24H IV 10/04/24 09:45 10/17/24 03:52 27.5 MLS/HR Ondansetron HCl 4 mg Q4HP PRN IV 10/04/24 11:45 Morphine Sulfate 2 mg Q4HPRN PRN IV 10/04/24 11:45 Nitroglycerin 0.4 mg Q5MINP PRN SL 10/04/24 11:45 Morphine Sulfate 2 mg Q30M PRN IV 10/04/24 11:45 Lorazepam 50 mg/ Sodium Chloride 50 ml @ 1 mls/hr Q24H IV 10/04/24 18:15 Cancel Midazolam HCl 50 ml @ 1 mls/hr Q24H IV 10/04/24 18:30 10/16/24 19:47 5 MLS/HR Vasopressin 20 units/Sodium Chloride 100 ml @ 12 mls/hr Q8H20M IV 10/04/24 20:30 10/17/24 07:23 3 MLS/HR Acetaminophen 650 mg Q6HPRN PRN [place] 10/04/24 21:00 10/11/24 15:19 650 MG Amino Acids 0 ml @ 0 mls/hr PER PHARMACY IV 10/05/24 14:30 UNV Amino Acids 0 ml @ 0 mls/hr PER PHARMACY IV 10/05/24 14:30 Diagnostic Test (Pha) 1 strip Q6HR 10/05/24 18:00 10/17/24 06:22 1 STRIP Insulin Human Regular FOLLOW SLIDING SCALE Q6HR SC 10/05/24 18:00 10/15/24 11:13 2 UNITS Dextrose 50 ml UD IV 10/05/24 14:45 Meropenem 50 ml @ 17 mls/hr Q12HR IV 10/07/24 10:00 UNV Micafungin Sodium 100 mg/Sodium Chloride 100 ml @ 100 mls/hr DAILY IV 10/07/24 10:00 10/16/24 10:16 100 MLS/HR Labetalol HCl 10 mg Q2HPRN PRN IV 10/08/24 09:30 Propofol 100 ml @ 2.181 mls/ hr Q24H IV 10/10/24 10:30 10/17/24 07:23 10.905 MLS/HR Pantoprazole Sodium 40 mg DAILY IV 10/12/24 10:00 10/17/24 07:22 40 MG Linezolid 300 ml @ 150 mls/hr Q12HR IV 10/13/24 10:00 10/16/24 21:45 150 MLS/HR Levalbuterol HCl 0.625 mg Q6HR NEB 10/13/24 12:00 10/17/24 06:38 0.625 MG Ipratropium [place] 0.5 mg Q6HR NEB 10/13/24 12:00 10/17/24 06:38 0.5 MG Meropenem 50 ml @ 17 mls/hr Q12H IV 10/13/24 14:00 10/17/24 01:46 17 MLS/HR Norepinephrine Bitartrate 32 mg/ Sodium Chloride 250 ml @ 0.938 mls/ hr Q24H IV 10/14/24 10:15 10/16/24 08:11 3.75 MLS/HR Enoxaparin Sodium 80 mg Q24H SC 10/14/24 19:00 10/16/24 19:46 80 MG Bumetanide 12.5 mg/Miscellaneous 50 ml @ 2 mls/hr Q24H IV 10/15/24 11:45 10/17/24 05:32 2 MLS/HR Sodium Chloride 100 meq/Sodium Acetate 30 meq/ Calcium Gluconate 6.95 meq/ Magnesium Sulfate 4 meq/ Multivitamins 10 ml/Amino Acids/ Dextrose 1,065.9462 ml @ 44 mls/hr [id number] IV 10/16/24 22:00 10/17/24 21:59 10/16/24 21:49 44 MLS/HR Laboratory Results Laboratory Tests 10/17/24 03:06 Chemistry Test 10/17/24 03:06 Albumin 2.3 g/dL (3.2-4.8) L Calcium Level 7.4 mg/dL (8.7-10.4) L Magnesium Level 2.4 mg/dL (1.6-2.6) Phosphorus Level 7.3 mg/dL (2.4-5.1) H Total Protein 5.4 g/dL (5.7-8.2) L LFT Test 10/17/24 03:06 Alanine Aminotransferase (ALT) 28 U/L (7-40) Alkaline Phosphatase 152 U/L (46-116) H Aspartate Amino Transferase (AST) 72 U/L (13-40) H Total Bilirubin 3.2 mg/dL (0.2-1.0) H Urinalysis Test 10/05/24 15:05 10/11/24 18:00 Urine Color Light-yellow (Yellow) Urine Clarity Hazy (Clear) H Urine pH 5.5 (5.0-9.0) Urine Specific [place] 1.018 (1.001-1.035) Urine Protein 1+ (Negative) H Urine Ketones Negative (Negative) Urine Blood 3+ /uL (Negative) H Urine Nitrite Negative (Negative) Urine Bilirubin Negative (Negative) Urine Urobilinogen Normal mg/dL (Negative) Urine Leukocyte Esterase Negative /uL (Negative) Urine RBC 1 /hpf (0 - 3) Urine Microscopic WBC 9 /HPF (0-3) H Urine Squamous Epithelial Cells Few /hpf (<5) Urine Bacteria Few /hpf (None Seen) H Urine Mucus Few (None Seen) Urine Glucose Trace mg/dL (Normal) Urine Total Protein 85.0 mg/dL (1-14) H Urine Creatinine 48.05 mg/dL (30.0-125.0) Urine Sodium 76 mmol/L (40-220) Blood Gas Results Test 10/16/24 12:09 10/17/24 07:02 Arterial Blood pH 7.295 (7.350-7.450) 7.340 (7.350-7.450) FiO2 % 80.0 50.0 Microbiology Microbiology Date/Time Source Procedure Growth Status 10/14/24 11:50 Pleural Fluid Gram Stain - Final Resulted 10/14/24 11:50 Pleural Fluid Aerobic Culture - Preliminary Resulted 10/13/24 22:00 Sputum Gram Stain - Final Resulted 10/13/24 22:00 Sputum Respiratory Culture - Preliminary Resulted 10/13/24 21:30 Voided Urine Urine Culture - Final Complete 10/13/24 14:20 Blood Blood Culture - Preliminary NO GROWTH AFTER 72 HOURS OF INCUBATION. Resulted 10/04/24 17:10 Nose MRSA Screen - Final Complete Labs and/or images reviewed: Labs reviewed by me, Image(s) reviewed by me Assessment/Plan Assessment/Plan Impression: -severe septic shock -pneumoperitoneum secondary to perforated gastric ulcer -acute kidney injury, hemodynamically mediated, probable VMN -acute hypoxic respiratory failure -shock liver -nicotine dependence -history of CVA -right upper extremity DVT -multifocal pneumonia, probable Gram-positive/Gram-negative etiology -anemia secondary to nutrition, renal failure Plan: Events: Patient had short HD treatment yesterday given issues with the dialysis catheter. Placed a new HD catheter to left femoral vein yesterday evening. Patient receiving HD this a.m., with patient converting to AFib with RVR. Amiodarone drip started. Bronchoscopy performed yesterday. Improved FiO2 requirements, the patient down to 50%. Peep is currently at 10, which will be decreased to 8 mm water. Continue current supportive measures. Plans for CT with oral contrast to assess patency of gastric repair. Patient's has been updated, performed on a daily basis. -continue antimicrobial coursed to Meropenem, micafungin, Zyvox -TPN -amiodarone drip per protocol -weaned vasopressors to keep map greater than 65 mmHg -Protonix 40 mg IV twice a day -further recommendations per surgical consultation -continue current sedation -continue Bumex drip. Nephrology recommendations appreciated -continue anticoagulation with Lovenox. -repeat labs, chest x-ray, ABG in a.m. -Discussed plan of care with . All questions answered. Critical care time spent with patient discussing and formulating plan of care: 90 minutes. This does not include time spent performing procedures. This medical document was created using an electronic medical record system with [employer] dictation system. Although this document has been carefully reviewed, there may still be some phonetic and typographical errors. These areas are purely typographical due to imperfections of the software programs, and do not reflect any compromise in the patient's medical care. Plan discussed with: Patient, Other (RN) My Orders Orders - CHEYENNE PIKE NP Procedure Category Date Status Time Chest Portable XY 10/17/24 Resulted 04:00 Abg W/ Co-Ox RT 10/17/24 Logged 06:00 Amiodarone Bolus Kit PHA 10/17/24 In Process (Cordarone) 08:30 Amiodarone PHA 10/17/24 In Process 360mg/200ml Premix 08:30 Amiodarone PHA 10/17/24 In Process 360mg/200ml Premix 14:30 Ventilator Orders RT 10/17/24 Transmitted 08:22 Chest Portable XY 10/18/24 Transmitted 05:00 Chest Portable XY 10/19/24 Transmitted 05:00 Chest Portable XY 10/20/24 Verified 05:00 Chest Portable XY 10/21/24 Verified 05:00 Date of Service: October 17, 2024 Billing Provider: CHEYENNE PIKE NP Common Visit Codes: [id number] CARE 30-74 MIN, [id number] CARE-EACH +30MIN CHEYENNE PIKE NP October 17, 2024 08:32
[2024-10-17] MEDS: AMIODARONE BOLUS KIT 100 ML IV ONE (08:34)
[2024-10-17] MEDS: AMIODARONE HCL (50 MG/ ML) 3 ML VIAL IV ONE (08:35)
[2024-10-17] MEDS: AMIODARONE 360mg/200mL PREMIX 200 ML IV ONE (08:43)
[2024-10-17] MEDS: HEPARIN 1,000 UNITS/ml 1ML VIAL IV ONE (10:43)
--- NOTE | 2024-10-17 11:24 | DVHPN2 ---
Progress Note Date Seen: October 17, 2024 Resident Creating Document: SILAS STAHL RESIDENT Has the PT tested + for MRSA If YES, has PT been informed?: No Medical Necessity Reason Pt with a Central, PICC or Fol: Yes The following are medically ne: Gómez Catheter Reason for gómez catheter: Strict I&O Subjective Review of Systems Patient seen and examined at bedside. Patient is currently intubated and sedated in the following settings: VT 550, F 28, FiO2 50%, PEEP 8 sat 100%. Yesterday patient underwent bronchoscopy were they remove mucus plugs from bilateral lower lobes. Today total in's of 3564 and out's of 3065 for a positive balance of 499. Today patient is currently undergoing hemodialysis aiming for 2 L of fluid removal. We will schedule the patient for hemodialysis tomorrow once again. Today chest x-ray was reviewed which looks slightly better compared to previous days but still there is pulmonary vascular congestion. Patient had an episode of AFib with RVR but was started on amiodarone drip by hospitalist and is currently on sinus rhythm. ROS unable to obtain due to patient's current status sedated and intubated. Objective vital signs Vital Sign Date Time Temp Pulse Resp B/P (MAP) Pulse Ox O2 Delivery O2 Flow Rate FiO2 10/17/24 10:10 85 28 106/50 (68) 100 50 10/17/24 09:58 Mechanical Ventilator+ 10/17/24 08:00 99.0 99.0 Total Intake and Output 10/16/24 10/16/24 10/17/24 15:00 23:00 07:00 Intake Total 1531.680 ml 1191.650 ml 833.025 ml Output Total 1460 ml 1605 ml Balance 1531.680 ml -268.350 ml -771.975 ml medications Current Medications Medications Dose Ordered Sig/Wally Route Start Time Stop Time Status Last Admin Dose Admin Fentanyl Citrate 250 ml @ 2.5 mls/hr Q24H IV 10/04/24 09:45 10/17/24 03:52 27.5 MLS/HR Ondansetron HCl 4 mg Q4HP PRN IV 10/04/24 11:45 Morphine Sulfate 2 mg Q4HPRN PRN IV 10/04/24 11:45 Nitroglycerin 0.4 mg Q5MINP PRN SL 10/04/24 11:45 Morphine Sulfate 2 mg Q30M PRN IV 10/04/24 11:45 Lorazepam 50 mg/ Sodium Chloride 50 ml @ 1 mls/hr Q24H IV 10/04/24 18:15 Cancel Midazolam HCl 50 ml @ 1 mls/hr Q24H IV 10/04/24 18:30 10/17/24 09:55 5 MLS/HR Vasopressin 20 units/Sodium Chloride 100 ml @ 12 mls/hr Q8H20M IV 10/04/24 20:30 10/17/24 07:23 3 MLS/HR Acetaminophen 650 mg Q6HPRN PRN [place] 10/04/24 21:00 10/11/24 15:19 650 MG Amino Acids 0 ml @ 0 mls/hr PER PHARMACY IV 10/05/24 14:30 UNV Amino Acids 0 ml @ 0 mls/hr PER PHARMACY IV 10/05/24 14:30 Diagnostic Test (Pha) 1 strip Q6HR 10/05/24 18:00 10/17/24 10:47 1 STRIP Insulin Human Regular FOLLOW SLIDING SCALE Q6HR SC 10/05/24 18:00 10/15/24 11:13 2 UNITS Dextrose 50 ml UD IV 10/05/24 14:45 Meropenem 50 ml @ 17 mls/hr Q12HR IV 10/07/24 10:00 UNV Micafungin Sodium 100 mg/Sodium Chloride 100 ml @ 100 mls/hr DAILY IV 10/07/24 10:00 10/17/24 10:59 100 MLS/HR Labetalol HCl 10 mg Q2HPRN PRN IV 10/08/24 09:30 Propofol 100 ml @ 2.181 mls/ hr Q24H IV 10/10/24 10:30 10/17/24 07:23 10.905 MLS/HR Pantoprazole Sodium 40 mg DAILY IV 10/12/24 10:00 10/17/24 07:22 40 MG Linezolid 300 ml @ 150 mls/hr Q12HR IV 10/13/24 10:00 10/16/24 21:45 150 MLS/HR Levalbuterol HCl 0.625 mg Q6HR NEB 10/13/24 12:00 10/17/24 06:38 0.625 MG Ipratropium [place] 0.5 mg Q6HR NEB 10/13/24 12:00 10/17/24 06:38 0.5 MG Meropenem 50 ml @ 17 mls/hr Q12H IV 10/13/24 14:00 10/17/24 01:46 17 MLS/HR Norepinephrine Bitartrate 32 mg/ Sodium Chloride 250 ml @ 0.938 mls/ hr Q24H IV 10/14/24 10:15 10/16/24 08:11 3.75 MLS/HR Enoxaparin Sodium 80 mg Q24H SC 10/14/24 19:00 10/16/24 19:46 80 MG Bumetanide 12.5 mg/Miscellaneous 50 ml @ 2 mls/hr Q24H IV 10/15/24 11:45 10/17/24 05:32 2 MLS/HR Sodium Chloride 100 meq/Sodium Acetate 30 meq/ Calcium Gluconate 6.95 meq/ Magnesium Sulfate 4 meq/ Multivitamins 10 ml/Amino Acids/ Dextrose 1,065.9462 ml @ 44 mls/hr [id number] IV 10/16/24 22:00 10/17/24 21:59 10/16/24 21:49 44 MLS/HR Sodium Chloride 100 meq/Sodium Acetate 40 meq/ Calcium Gluconate 6.95 meq/ Magnesium Sulfate 2 meq/ Multivitamins 10 ml/Amino Acids/ Dextrose/Purified Water 1,170.4462 ml @ 48 mls/hr [id number] IV 10/17/24 22:00 10/18/24 21:59 Examination Physical Examination General: Patient sedated and intubated. VT 550, F 28, FiO2 50%, PEEP 8. sat 100% HEENT: Normocephalic, atraumatic, moist mucous membranes Respiratory/pulmonary: There are mild crackles on bilateral lung ansari but no wheezes at this time. Cardiovascular: Normal heart sounds S1 and S2 with no associated murmurs Abdomen: Abdomen nondistended, soft to palpation with binder in place. There are three drains placed to in the left abdominal cavity and one in the right. There is also a right-sided cholecystostomy drain which is draining 25 cc in the last 12 hours. The three drains were labeled as #1 draining 60cc, #2 draining 45cc, #3 draining 10cc in the last 12 hrs. Extremities: There is no peripheral edema present at the lower extremities but there is mild swelling on bilateral upper extremities. Skin: No rashes or pruritus, there is no sacral edema present at this time. Neurological: RASS -3 laboratory and microbiology Laboratory Tests 10/17/24 03:06 Test 10/17/24 03:06 Range/Units Serum Glucose 124 H 74-106 mg/dL Microbiology Date/Time Source Procedure Growth Status 10/16/24 12:05 Bronchial Washings Gram Stain Pending Resulted 10/16/24 12:05 Bronchial Washings Respiratory Culture - Preliminary Resulted 10/14/24 11:50 Pleural Fluid Gram Stain - Final Resulted 10/14/24 11:50 Pleural Fluid Aerobic Culture - Preliminary Resulted 10/13/24 21:30 Voided Urine Urine Culture - Final Complete 10/13/24 14:20 Blood Blood Culture - Preliminary NO GROWTH AFTER 72 HOURS OF INCUBATION. Resulted 10/04/24 17:10 Nose MRSA Screen - Final Complete Problem List/Assessment/Plan Problem List/Assessment/Plan Assessment/Plan Acute kidney injury likely acute tubular necrosis with a FeNa >2% (5.85) Septic shock due to perforated peptic ulceration and peritonitis Hemodynamic shock with severe acute anemia likely due to above, requiring PRBCs transfusion Status post exploratory laparotomy with three intra-abdominal drains placement (10/04/24) Status post cholecystostomy drain placed Acute hypoxyc/hypercapnic respiratory failure requiring mechanical ventilation Possible gram+/- bacterial pneumonia Plan -total urine output in the last 24 hours: In's of 3564 cc, out's of 3065 cc for a positive balance of 499 cc. -currently on hemodialysis aiming to remove 2 L of fluid, we will schedule patient for hemodialysis once again tomorrow -continue bumetanide drip to 0.5 milligram/hour -Will continue monitoring Cr, BUN daily Goals of care discussed with nurse and bridge opener Plan discussed with Dr. Almanzar Plan discussed with: Other Dietary Evaluation Review Comments: 1. Continue TPN to meet at least 75% estimated needs 2. Continue current POC Expected Outcomes/Goals: FU 2-3 days to meet adequate energy & protein within 7 days of NPO Protein Calorie Malnutrition: Severe (rn) CC Plasma Assessment Blood Product Administration S: [id number] SILAS STAHL RESIDENT October 17, 2024 11:24
[2024-10-17 12:24] LABS: Hepatitis B Surface Antigen Negative (Negative); Hepatitis C Antibody Negative (Negative)
--- NOTE | 2024-10-17 12:30 | DVHPN2 ---
Progress Note - Dictate Date Seen: October 17, 2024 Has the PT tested + for MRSA If YES, has PT been informed?: No Medical Necessity Reason Pt with a Central, PICC or Fol: Yes The following are medically ne: Gómez Catheter Reason for gómez catheter: Strict I&O Subjective E: no major events o/n. vital signs Vital Sign Date Time Temp Pulse Resp B/P (MAP) Pulse Ox O2 Delivery O2 Flow Rate FiO2 10/17/24 11:48 28 97 Mechanical Ventilator+ 50 50 10/17/24 11:48 72 10/17/24 11:45 98.6 129/72 (91) 98.6 128/55 (79) Total Intake and Output 10/16/24 10/16/24 10/17/24 15:00 23:00 07:00 Intake Total 1531.680 ml 1191.650 ml 833.025 ml Output Total 1460 ml 1605 ml Balance 1531.680 ml -268.350 ml -771.975 ml medications Current Medications Medications Dose Ordered Sig/Wally Route Start Time Stop Time Status Last Admin Dose Admin Fentanyl Citrate 250 ml @ 2.5 mls/hr Q24H IV 10/04/24 09:45 10/17/24 03:52 27.5 MLS/HR Ondansetron HCl 4 mg Q4HP PRN IV 10/04/24 11:45 Morphine Sulfate 2 mg Q4HPRN PRN IV 10/04/24 11:45 Nitroglycerin 0.4 mg Q5MINP PRN SL 10/04/24 11:45 Morphine Sulfate 2 mg Q30M PRN IV 10/04/24 11:45 Lorazepam 50 mg/ Sodium Chloride 50 ml @ 1 mls/hr Q24H IV 10/04/24 18:15 Cancel Midazolam HCl 50 ml @ 1 mls/hr Q24H IV 10/04/24 18:30 10/17/24 09:55 5 MLS/HR Vasopressin 20 units/Sodium Chloride 100 ml @ 12 mls/hr Q8H20M IV 10/04/24 20:30 10/17/24 07:23 3 MLS/HR Acetaminophen 650 mg Q6HPRN PRN [place] 10/04/24 21:00 10/11/24 15:19 650 MG Amino Acids 0 ml @ 0 mls/hr PER PHARMACY IV 10/05/24 14:30 UNV Amino Acids 0 ml @ 0 mls/hr PER PHARMACY IV 10/05/24 14:30 Diagnostic Test (Pha) 1 strip Q6HR 10/05/24 18:00 10/17/24 10:47 1 STRIP Insulin Human Regular FOLLOW SLIDING SCALE Q6HR SC 10/05/24 18:00 10/15/24 11:13 2 UNITS Dextrose 50 ml UD IV 10/05/24 14:45 Meropenem 50 ml @ 17 mls/hr Q12HR IV 10/07/24 10:00 UNV Micafungin Sodium 100 mg/Sodium Chloride 100 ml @ 100 mls/hr DAILY IV 10/07/24 10:00 10/17/24 10:59 100 MLS/HR Labetalol HCl 10 mg Q2HPRN PRN IV 10/08/24 09:30 Propofol 100 ml @ 2.181 mls/ hr Q24H IV 10/10/24 10:30 10/17/24 07:23 10.905 MLS/HR Pantoprazole Sodium 40 mg DAILY IV 10/12/24 10:00 10/17/24 07:22 40 MG Linezolid 300 ml @ 150 mls/hr Q12HR IV 10/13/24 10:00 10/17/24 12:09 150 MLS/HR Levalbuterol HCl 0.625 mg Q6HR NEB 10/13/24 12:00 10/17/24 12:22 0.625 MG Ipratropium [place] 0.5 mg Q6HR NEB 10/13/24 12:00 10/17/24 12:22 0.5 MG Meropenem 50 ml @ 17 mls/hr Q12H IV 10/13/24 14:00 10/17/24 01:46 17 MLS/HR Norepinephrine Bitartrate 32 mg/ Sodium Chloride 250 ml @ 0.938 mls/ hr Q24H IV 10/14/24 10:15 10/16/24 08:11 3.75 MLS/HR Enoxaparin Sodium 80 mg Q24H SC 10/14/24 19:00 10/16/24 19:46 80 MG Bumetanide 12.5 mg/Miscellaneous 50 ml @ 2 mls/hr Q24H IV 10/15/24 11:45 10/17/24 05:32 2 MLS/HR Sodium Chloride 100 meq/Sodium Acetate 30 meq/ Calcium Gluconate 6.95 meq/ Magnesium Sulfate 4 meq/ Multivitamins 10 ml/Amino Acids/ Dextrose 1,065.9462 ml @ 44 mls/hr [id number] IV 10/16/24 22:00 10/17/24 21:59 10/16/24 21:49 44 MLS/HR Sodium Chloride 100 meq/Sodium Acetate 40 meq/ Calcium Gluconate 6.95 meq/ Magnesium Sulfate 2 meq/ Multivitamins 10 ml/Amino Acids/ Dextrose/Purified Water 1,170.4462 ml @ 48 mls/hr [id number] IV 10/17/24 22:00 10/18/24 21:59 objective GEN: sedated. intubated. ABD: surgical incision clean. NGT 250 mL last night. min today. KWAN 100 mL serous total. laboratory and microbiology Laboratory Tests 10/17/24 03:06 Test 10/17/24 03:06 Range/Units Serum Glucose 124 H 74-106 mg/dL Assessment/Plan A: 1. POD #13 s/p ex lap with repair of large perforated pyloric ulcer 2. septic shock on pressors 3. GIOVANI 4. PNA P: 1. CT abd/pelvis with gastrografin pending today. Dietary Evaluation Review Comments: 1. Continue TPN to meet at least 75% estimated needs 2. Continue current POC Expected Outcomes/Goals: FU 2-3 days to meet adequate energy & protein within 7 days of NPO Protein Calorie Malnutrition: Severe (rn) Plan discussed with: Other CC Plasma Assessment Blood Product Administration S: [id number] SAMMIE LEONARDO MD October 17, 2024 12:30
[2024-10-17] MEDS: AMIODARONE 360mg/200mL PREMIX 200 ML IV SCH (13:50)
--- NOTE | 2024-10-17 15:15 | DVHPN2 ---
Progress Note - Dictate Date Seen: October 17, 2024 Has the PT tested + for MRSA If YES, has PT been informed?: No Medical Necessity Reason Pt with a Central, PICC or Fol: Yes The following are medically ne: Gómez Catheter Reason for gómez catheter: Strict I&O vital signs Vital Sign Date Time Temp Pulse Resp B/P (MAP) Pulse Ox O2 Delivery O2 Flow Rate FiO2 10/17/24 14:15 66 28 167/68 (101) 98 158/64 (95) 10/17/24 13:44 50 10/17/24 13:44 Mechanical Ventilator+ 10/17/24 11:45 98.6 98.6 Total Intake and Output 10/16/24 10/16/24 10/17/24 13:00 21:00 05:00 Intake Total 1215.804 ml 1171.618 ml 1180.369 ml Output Total 1355 ml 1460 ml Balance -139.196 ml -288.382 ml 1180.369 ml medications Current Medications Medications Dose Ordered Sig/Wally Route Start Time Stop Time Status Last Admin Dose Admin Fentanyl Citrate 250 ml @ 2.5 mls/hr Q24H IV 10/04/24 09:45 10/17/24 12:37 27.5 MLS/HR Ondansetron HCl 4 mg Q4HP PRN IV 10/04/24 11:45 Morphine Sulfate 2 mg Q4HPRN PRN IV 10/04/24 11:45 Nitroglycerin 0.4 mg Q5MINP PRN SL 10/04/24 11:45 Morphine Sulfate 2 mg Q30M PRN IV 10/04/24 11:45 Lorazepam 50 mg/ Sodium Chloride 50 ml @ 1 mls/hr Q24H IV 10/04/24 18:15 Cancel Midazolam HCl 50 ml @ 1 mls/hr Q24H IV 10/04/24 18:30 10/17/24 09:55 5 MLS/HR Vasopressin 20 units/Sodium Chloride 100 ml @ 12 mls/hr Q8H20M IV 10/04/24 20:30 10/17/24 07:23 3 MLS/HR Acetaminophen 650 mg Q6HPRN PRN [place] 10/04/24 21:00 10/11/24 15:19 650 MG Amino Acids 0 ml @ 0 mls/hr PER PHARMACY IV 10/05/24 14:30 UNV Amino Acids 0 ml @ 0 mls/hr PER PHARMACY IV 10/05/24 14:30 Diagnostic Test (Pha) 1 strip Q6HR 10/05/24 18:00 10/17/24 10:47 1 STRIP Insulin Human Regular FOLLOW SLIDING SCALE Q6HR SC 10/05/24 18:00 10/15/24 11:13 2 UNITS Dextrose 50 ml UD IV 10/05/24 14:45 Meropenem 50 ml @ 17 mls/hr Q12HR IV 10/07/24 10:00 UNV Micafungin Sodium 100 mg/Sodium Chloride 100 ml @ 100 mls/hr DAILY IV 10/07/24 10:00 10/17/24 10:59 100 MLS/HR Labetalol HCl 10 mg Q2HPRN PRN IV 10/08/24 09:30 Propofol 100 ml @ 2.181 mls/ hr Q24H IV 10/10/24 10:30 10/17/24 07:23 10.905 MLS/HR Pantoprazole Sodium 40 mg DAILY IV 10/12/24 10:00 10/17/24 07:22 40 MG Linezolid 300 ml @ 150 mls/hr Q12HR IV 10/13/24 10:00 10/17/24 12:09 150 MLS/HR Levalbuterol HCl 0.625 mg Q6HR NEB 10/13/24 12:00 10/17/24 12:22 0.625 MG Ipratropium [place] 0.5 mg Q6HR NEB 10/13/24 12:00 10/17/24 12:22 0.5 MG Meropenem 50 ml @ 17 mls/hr Q12H IV 10/13/24 14:00 10/17/24 13:49 17 MLS/HR Norepinephrine Bitartrate 32 mg/ Sodium Chloride 250 ml @ 0.938 mls/ hr Q24H IV 10/14/24 10:15 10/16/24 08:11 3.75 MLS/HR Enoxaparin Sodium 80 mg Q24H SC 10/14/24 19:00 10/16/24 19:46 80 MG Bumetanide 12.5 mg/Miscellaneous 50 ml @ 2 mls/hr Q24H IV 10/15/24 11:45 10/17/24 05:32 2 MLS/HR Sodium Chloride 100 meq/Sodium Acetate 30 meq/ Calcium Gluconate 6.95 meq/ Magnesium Sulfate 4 meq/ Multivitamins 10 ml/Amino Acids/ Dextrose 1,065.9462 ml @ 44 mls/hr [id number] IV 10/16/24 22:00 10/17/24 21:59 10/16/24 21:49 44 MLS/HR Sodium Chloride 100 meq/Sodium Acetate 40 meq/ Calcium Gluconate 6.95 meq/ Magnesium Sulfate 2 meq/ Multivitamins 10 ml/Amino Acids/ Dextrose/Purified Water 1,170.4462 ml @ 48 mls/hr [id number] IV 10/17/24 22:00 10/18/24 21:59 laboratory and microbiology Laboratory Tests 10/17/24 03:06 Test 10/17/24 03:06 Range/Units Serum Glucose 124 H 74-106 mg/dL Assessment/Plan Impression Acute hypoxemic respiratory failure Perforated viscus Septic shock Smoker Patient seen and examined in ICU Events On mechanical ventilation S/p intubation PEEP 8, FiO2 70% S/p bronchoscopy S/p cholecystic drain placement S/p ex lap and repair Labs and imaging reviewed ABG reviewed Management Vent support Titrate to maintain sats 90% or above Continue antibiotics F/u cultures Bronchodilators Monitor renal function Monitor electrolytes Supplement as needed HD per nephrology Pressors as needed for hemodynamic support To maintain a mean arterial pressure of 65 mmHg F/u GI DVT prophylaxis Critical care time 35 minutes Dietary Evaluation Review Comments: 1. Continue TPN to meet at least 75% estimated needs 2. Continue current POC Expected Outcomes/Goals: FU 2-3 days to meet adequate energy & protein within 7 days of NPO Protein Calorie Malnutrition: Severe (rn) Plan discussed with: Other (Rn) CC Plasma Assessment Blood Product Administration S: [id number] VALENTE DEE MD October 17, 2024 15:15
[2024-10-17 16:41] LABS: Base Excess 4.9 mmol/L (-2.0-3.0)
--- NOTE | 2024-10-17 17:18 | DVH ---
Exam: CT CT AB PEL WITH ORAL CON ONLY History: R/O PERSISTENT LEAK GASTRIC PERF,REPAIR Comparison Study: None Technique: Multidetector CT of the abdomen and pelvis without contrast. Axial, coronal and sagittal m ultiplanar reformats were performed by the technologist on a separate workstation. Radiation Dose Information: CT Dose: CTDI volume is 14.83 mGy. Dose-length product is 848.62 mGy*cm Findings: Ground-glass opacities of the lung bases. Moderate to large bilateral pleural effusions with associat ed atelectasis. Heart size is within normal limits. Right upper abdominal approach cholecystostomy tube is noted. Additional right lower abdominal quadra nt approach drainage catheter is noted terminating over the right upper abdominal quadrant. There is additional left mid abdominal approach drainage catheters terminating within the right hemipelvis an d over the left upper to midabdomen. Trace ascites. Liver, spleen, and adrenal glands unremarkable. Limited evaluation of the pancreas for acute pancreat itis given Trace ascites. The gallbladder is decompressed with hyperdense wall. No hydronephrosis or renal calculi bilaterally. The urinary bladder is partially decompressed with Fo earl catheter in place. Wall thickening of the urinary bladder which is most likely from inadequate d istention with mild adjacent fat stranding. Prostate measures 3.5 x 4.4 x 4.3 cm. Oral contrast is noted within the stomach, small bowel loops, ascending, transverse and descending co shakir. No contrast is noted within the sigmoid and rectum which is most likely from timing of imaging. No evidence of contrast leakage. Enteric tube is noted within the stomach. Rectal tube is noted in place. Mild gastric wall thickening . No significant distention of the small bowel loops significant wall t hickening. Appendix is not definitely visualized. Decompression of the distal transverse colon sigmoi d and rectum. Mild rectal wall thickening which may be due to inadequate distention. Rectal tube is n oted in place. No evidence of aortic aneurysm. Mild atherosclerotic calcification of the aorta and bilateral iliacs . Bilateral femoral central venous catheters are noted terminating over the left common iliac artery on the left and right external iliac artery of the right. No pneumoperitoneum. Limited evaluation for lymphadenopathy. There is body wall edema of the lower abdomen, pelvis and hip. Postsurgical changes of midline ventra l abdomen. No destructive osseous lesions are noted. IMPRESSION: oral contrast is noted within the stomach, small bowel lobes, ascending, transverse and descending co shakir with no obvious contrast leakage noted. Gastric wall thickening. Correlate for gastritis. Cholecystostomy tube is noted in place. Wall thickening of the urinary bladder which may be from inadequate distention. Correlation urinalys is is recommended to exclude cystitis. Trace ascites. Moderate to large bilateral pleural effusions with associated atelectasis. Extensive ground-glass opacities of the lung bases which may represent infectious/inflammatory proces s/pulmonary edema. Additional findings as above.
[2024-10-17] MEDS: TPN PER PHARMACY IV NR (22:30)
[2024-10-18] VITALS (110 sets, daily range): BP systolic 89–162; BP diastolic 41–149; PULSE 67–116; RESP 26–31; TEMP 97.5–100.2; O2SAT 95–100
[2024-10-18 03:46] LABS: Hemoglobin 8.0 g/dL (13.5-17.5)
[2024-10-18 03:49] LABS: Hematocrit 23.0 % (41.0-53.0); Mean Corpuscular Hemoglobin 29.4 pg (28.0-32.0); Mean Corpuscular Volume 84.1 fL (80.0-100.0); Nucleated Red Blood Cells % 0.2 %
[2024-10-18 04:04] LABS: Alanine Aminotransferase 31 U/L (7-40); Anion Gap 9 (5-15); BUN/Creatinine Ratio 16.2 (10.0-20.0); Carbon Dioxide 30 mmol/L (20-31); Magnesium 1.9 mg/dL (1.6-2.6)
[2024-10-18 04:09] LABS: Alkaline Phosphatase 170 U/L (46-116); Blood Urea Nitrogen 70 mg/dL (9-23); Calcium 8.1 mg/dL (8.7-10.4); Chloride 95 mmol/L (98-107); Glucose 118 mg/dL (74-106); Potassium 3.1 mmol/L (3.5-5.1); Sodium 134 mmol/L (136-145)
[2024-10-18 04:10] LABS: Albumin 2.2 g/dL (3.2-4.8); Bilirubin, Total 2.7 mg/dL (0.2-1.0); Total Protein 5.4 g/dL (5.7-8.2)
--- NOTE | 2024-10-18 06:03 | DVH ---
CHEST RADIOGRAPH Indication: pna Technique: Single frontal view of the chest was obtained Comparison: XY CHEST PORTABLE on DOS: 10/17/24, XY CHEST XRAY 1 VIEW on DOS: 10/16/24, XY CHEST PORTABL E on DOS: 10/16/24 IMPRESSION: Heart appears stable in size. Diffuse alveolar airspace opacities appear worsened. Probable small p ossibly loculated effusion. No pneumothorax. Support lines and tubes appear unchanged in satisfactor y position.
[2024-10-18] MEDS: SODIUM CHL 0.9% 1000 ML BAG XX ONE (07:00)
[2024-10-18 07:38] LABS: Base Excess 5.9 mmol/L (-2.0-3.0)
--- NOTE | 2024-10-18 07:54 | DVHPN2 ---
Subjective Patient intubated and sedated Reviewed: Care Plan, H&P, Labs, Medications, Previous Orders, Radiology, Other (Consultants) Changes from previous H/P or p: No Changes General: Per HPI Objective Vitals Vital Signs Date Time Temp Pulse Resp B/P (MAP) Pulse Ox O2 Delivery O2 Flow Rate FiO2 10/18/24 07:00 77 28 134/69 (90) 99 116/61 (79) 10/18/24 06:35 50 10/18/24 06:00 Mechanical Ventilator+ 10/18/24 04:00 97.5 97.5 Intake/Output Intake and Output 10/18/24 07:00 Intake Total 4285.790 ml Output Total 3715 ml Balance 570.790 ml Intake Oral 1000 ml IV Total 3285.790 ml Output Urine Total 2600 ml Gastric Drainage Total 575 ml Drainage Total 500 ml Other 40 ml General Appearance: moderate distress, Other (Intubated and sedated) HEENT: Atraumatic, PERRLA Lungs: Other (Mechanical ventilation. Decreased breath sounds at bases) Cardiovascular: Regular rate, Normal S1, Normal S2, Other (Sinus rhythm) Abdomen: Other Neuro: Other (Unable to assess) Skin: Dry, Intact, Wounds, Other Psych/Mental Status: Other Medications Current Medications Medications Dose Ordered Sig/Wally Route Start Time Stop Time Status Last Admin Dose Admin Fentanyl Citrate 250 ml @ 2.5 mls/hr Q24H IV 10/04/24 09:45 10/18/24 02:09 20 MLS/HR Ondansetron HCl 4 mg Q4HP PRN IV 10/04/24 11:45 Morphine Sulfate 2 mg Q4HPRN PRN IV 10/04/24 11:45 Nitroglycerin 0.4 mg Q5MINP PRN SL 10/04/24 11:45 Morphine Sulfate 2 mg Q30M PRN IV 10/04/24 11:45 Lorazepam 50 mg/ Sodium Chloride 50 ml @ 1 mls/hr Q24H IV 10/04/24 18:15 Cancel Midazolam HCl 50 ml @ 1 mls/hr Q24H IV 10/04/24 18:30 10/18/24 07:12 5 MLS/HR Vasopressin 20 units/Sodium Chloride 100 ml @ 12 mls/hr Q8H20M IV 10/04/24 20:30 10/17/24 07:23 3 MLS/HR Acetaminophen 650 mg Q6HPRN PRN [place] 10/04/24 21:00 10/11/24 15:19 650 MG Amino Acids 0 ml @ 0 mls/hr PER PHARMACY IV 10/05/24 14:30 UNV Amino Acids 0 ml @ 0 mls/hr PER PHARMACY IV 10/05/24 14:30 Diagnostic Test (Pha) 1 strip Q6HR 10/05/24 18:00 10/18/24 05:54 1 STRIP Insulin Human Regular FOLLOW SLIDING SCALE Q6HR SC 10/05/24 18:00 10/15/24 11:13 2 UNITS Dextrose 50 ml UD IV 10/05/24 14:45 Meropenem 50 ml @ 17 mls/hr Q12HR IV 10/07/24 10:00 UNV Micafungin Sodium 100 mg/Sodium Chloride 100 ml @ 100 mls/hr DAILY IV 10/07/24 10:00 10/18/24 07:24 100 MLS/HR Labetalol HCl 10 mg Q2HPRN PRN IV 10/08/24 09:30 Propofol 100 ml @ 2.181 mls/ hr Q24H IV 10/10/24 10:30 10/18/24 07:13 10.905 MLS/HR Pantoprazole Sodium 40 mg DAILY IV 10/12/24 10:00 10/18/24 07:12 40 MG Linezolid 300 ml @ 150 mls/hr Q12HR IV 10/13/24 10:00 10/17/24 22:29 150 MLS/HR Levalbuterol HCl 0.625 mg Q6HR NEB 10/13/24 12:00 10/18/24 06:39 0.625 MG Ipratropium [place] 0.5 mg Q6HR NEB 10/13/24 12:00 10/18/24 06:39 0.5 MG Meropenem 50 ml @ 17 mls/hr Q12H IV 10/13/24 14:00 10/18/24 02:10 17 MLS/HR Norepinephrine Bitartrate 32 mg/ Sodium Chloride 250 ml @ 0.938 mls/ hr Q24H IV 10/14/24 10:15 10/18/24 07:19 1.875 MLS/HR Enoxaparin Sodium 80 mg Q24H SC 10/14/24 19:00 10/17/24 17:16 80 MG Bumetanide 12.5 mg/Miscellaneous 50 ml @ 2 mls/hr Q24H IV 10/15/24 11:45 10/18/24 02:12 2 MLS/HR Sodium Chloride 100 meq/Sodium Acetate 40 meq/ Calcium Gluconate 6.95 meq/ Magnesium Sulfate 2 meq/ Multivitamins 10 ml/Amino Acids/ Dextrose/Purified Water 1,170.4462 ml @ 48 mls/hr [id number] IV 10/17/24 22:00 10/18/24 21:59 10/17/24 22:30 48 MLS/HR Laboratory Results Laboratory Tests 10/18/24 03:24 Chemistry Test 10/18/24 03:24 Albumin 2.2 g/dL (3.2-4.8) L Calcium Level 8.1 mg/dL (8.7-10.4) L Magnesium Level 1.9 mg/dL (1.6-2.6) Phosphorus Level 4.3 mg/dL (2.4-5.1) Total Protein 5.4 g/dL (5.7-8.2) L LFT Test 10/18/24 03:24 Alanine Aminotransferase (ALT) 31 U/L (7-40) Alkaline Phosphatase 170 U/L (46-116) H Aspartate Amino Transferase (AST) 88 U/L (13-40) H Total Bilirubin 2.7 mg/dL (0.2-1.0) H Urinalysis Test 10/05/24 15:05 10/11/24 18:00 Urine Color Light-yellow (Yellow) Urine Clarity Hazy (Clear) H Urine pH 5.5 (5.0-9.0) Urine Specific [place] 1.018 (1.001-1.035) Urine Protein 1+ (Negative) H Urine Ketones Negative (Negative) Urine Blood 3+ /uL (Negative) H Urine Nitrite Negative (Negative) Urine Bilirubin Negative (Negative) Urine Urobilinogen Normal mg/dL (Negative) Urine Leukocyte Esterase Negative /uL (Negative) Urine RBC 1 /hpf (0 - 3) Urine Microscopic WBC 9 /HPF (0-3) H Urine Squamous Epithelial Cells Few /hpf (<5) Urine Bacteria Few /hpf (None Seen) H Urine Mucus Few (None Seen) Urine Glucose Trace mg/dL (Normal) Urine Total Protein 85.0 mg/dL (1-14) H Urine Creatinine 48.05 mg/dL (30.0-125.0) Urine Sodium 76 mmol/L (40-220) Blood Gas Results Test 10/17/24 16:27 10/18/24 07:01 Arterial Blood pH 7.435 (7.350-7.450) 7.432 (7.350-7.450) FiO2 % 50.0 50.0 Microbiology Microbiology Date/Time Source Procedure Growth Status 10/16/24 12:05 Bronchial Washings Gram Stain Pending Resulted 10/16/24 12:05 Bronchial Washings Respiratory Culture - Preliminary Resulted 10/14/24 11:50 Pleural Fluid Gram Stain - Final Resulted 10/14/24 11:50 Pleural Fluid Aerobic Culture - Preliminary Resulted 10/13/24 21:30 Voided Urine Urine Culture - Final Complete 10/13/24 14:20 Blood Blood Culture - Preliminary NO GROWTH AFTER 72 HOURS OF INCUBATION. Resulted 10/04/24 17:10 Nose MRSA Screen - Final Complete Labs and/or images reviewed: Labs reviewed by me, Image(s) reviewed by me Assessment/Plan Assessment/Plan Impression: -severe septic shock -pneumoperitoneum secondary to perforated gastric ulcer -acute kidney injury, hemodynamically mediated, probable VMN -acute hypoxic respiratory failure -shock liver -nicotine dependence -history of CVA -right upper extremity DVT -multifocal pneumonia, probable Gram-positive/Gram-negative etiology -anemia secondary to nutrition, renal failure -bilateral pleural effusions Plan: Events: White blood cell count normalized. Renal function improved after hemodialysis yesterday. Adequate urine output. CT scan with oral contrast without any noted extravasation or obvious leakage. We will defer to General surgery for attempts of enteric nutrition. Plans for HD today. Patient continues to be in sinus rhythm. Stop amiodarone drip after 24 hour protocol. Discussed case with pulmonology. Possible thoracentesis today for bilateral effusions. -continue antimicrobial coursed to Meropenem, micafungin, Zyvox -TPN -amiodarone drip per protocol -weaned vasopressors to keep map greater than 65 mmHg -Protonix 40 mg IV twice a day -further recommendations per surgical consultation -continue current sedation -continue Bumex drip. Nephrology recommendations appreciated -continue anticoagulation with Lovenox. -repeat labs, chest x-ray, ABG in a.m. -Discussed plan of care with . All questions answered. Critical care time spent with patient discussing and formulating plan of care: 90 minutes. This does not include time spent performing procedures. This medical document was created using an electronic medical record system with phorus dictation system. Although this document has been carefully reviewed, there may still be some phonetic and typographical errors. These areas are purely typographical due to imperfections of the software programs, and do not reflect any compromise in the patient's medical care. Plan discussed with: Patient, Spouse, Other (RN) My Orders Orders - CHEYENNE PIKE NP Procedure Category Date Status Time Amiodarone PHA 10/17/24 In Process 360mg/200ml Premix 14:30 Ventilator Orders RT 10/17/24 Transmitted 08:22 Chest Portable XY 10/18/24 Resulted 05:00 Chest Portable XY 10/19/24 Logged 05:00 Chest Portable XY 10/20/24 Logged 05:00 Chest Portable XY 10/21/24 Logged 05:00 Communication Order ORDERS 10/17/24 Transmitted 09:00 Abg W/ Co-Ox RT 10/17/24 Logged 14:30 Abg W/ Co-Ox RT 10/18/24 Logged 06:00 Date of Service: October 18, 2024 Billing Provider: CHEYENNE PIKE NP Common Visit Codes: 36224-[id number] CARE 30-74 MIN CHEYENNE PIKE NP October 18, 2024 07:54
--- NOTE | 2024-10-18 09:07 | DVHPN2 ---
Progress Note - Dictate Date Seen: October 18, 2024 Has the PT tested + for MRSA If YES, has PT been informed?: No Medical Necessity Reason Pt with a Central, PICC or Fol: Yes The following are medically ne: Gómez Catheter Reason for gómez catheter: Strict I&O vital signs Vital Sign Date Time Temp Pulse Resp B/P (MAP) Pulse Ox O2 Delivery O2 Flow Rate FiO2 10/18/24 08:30 73 28 103/50 (67) 100 50 10/18/24 07:55 Mechanical Ventilator+ 10/18/24 07:45 97.7 97.7 Total Intake and Output 10/17/24 10/17/24 10/18/24 15:00 23:00 07:00 Intake Total 1417.836 ml 1861.909 ml 1093.825 ml Output Total 1560 ml 2155 ml Balance 1417.836 ml 301.909 ml -1061.175 ml medications Current Medications Medications Dose Ordered Sig/Wally Route Start Time Stop Time Status Last Admin Dose Admin Fentanyl Citrate 250 ml @ 2.5 mls/hr Q24H IV 10/04/24 09:45 10/18/24 02:09 20 MLS/HR Ondansetron HCl 4 mg Q4HP PRN IV 10/04/24 11:45 Morphine Sulfate 2 mg Q4HPRN PRN IV 10/04/24 11:45 Nitroglycerin 0.4 mg Q5MINP PRN SL 10/04/24 11:45 Morphine Sulfate 2 mg Q30M PRN IV 10/04/24 11:45 Lorazepam 50 mg/ Sodium Chloride 50 ml @ 1 mls/hr Q24H IV 10/04/24 18:15 Cancel Midazolam HCl 50 ml @ 1 mls/hr Q24H IV 10/04/24 18:30 10/18/24 07:12 5 MLS/HR Vasopressin 20 units/Sodium Chloride 100 ml @ 12 mls/hr Q8H20M IV 10/04/24 20:30 10/17/24 07:23 3 MLS/HR Acetaminophen 650 mg Q6HPRN PRN [place] 10/04/24 21:00 10/11/24 15:19 650 MG Amino Acids 0 ml @ 0 mls/hr PER PHARMACY IV 10/05/24 14:30 UNV Amino Acids 0 ml @ 0 mls/hr PER PHARMACY IV 10/05/24 14:30 Diagnostic Test (Pha) 1 strip Q6HR 10/05/24 18:00 10/18/24 05:54 1 STRIP Insulin Human Regular FOLLOW SLIDING SCALE Q6HR SC 10/05/24 18:00 10/15/24 11:13 2 UNITS Dextrose 50 ml UD IV 10/05/24 14:45 Meropenem 50 ml @ 17 mls/hr Q12HR IV 10/07/24 10:00 UNV Micafungin Sodium 100 mg/Sodium Chloride 100 ml @ 100 mls/hr DAILY IV 10/07/24 10:00 10/18/24 07:24 100 MLS/HR Labetalol HCl 10 mg Q2HPRN PRN IV 10/08/24 09:30 Propofol 100 ml @ 2.181 mls/ hr Q24H IV 10/10/24 10:30 10/18/24 07:13 10.905 MLS/HR Pantoprazole Sodium 40 mg DAILY IV 10/12/24 10:00 10/18/24 07:12 40 MG Linezolid 300 ml @ 150 mls/hr Q12HR IV 10/13/24 10:00 10/18/24 08:23 150 MLS/HR Levalbuterol HCl 0.625 mg Q6HR NEB 10/13/24 12:00 10/18/24 06:39 0.625 MG Ipratropium [place] 0.5 mg Q6HR NEB 10/13/24 12:00 10/18/24 06:39 0.5 MG Meropenem 50 ml @ 17 mls/hr Q12H IV 10/13/24 14:00 10/18/24 02:10 17 MLS/HR Norepinephrine Bitartrate 32 mg/ Sodium Chloride 250 ml @ 0.938 mls/ hr Q24H IV 10/14/24 10:15 10/18/24 07:19 1.875 MLS/HR Enoxaparin Sodium 80 mg Q24H SC 10/14/24 19:00 10/17/24 17:16 80 MG Bumetanide 12.5 mg/Miscellaneous 50 ml @ 2 mls/hr Q24H IV 10/15/24 11:45 10/18/24 02:12 2 MLS/HR Sodium Chloride 100 meq/Sodium Acetate 40 meq/ Calcium Gluconate 6.95 meq/ Magnesium Sulfate 2 meq/ Multivitamins 10 ml/Amino Acids/ Dextrose/Purified Water 1,170.4462 ml @ 48 mls/hr [id number] IV 10/17/24 22:00 10/18/24 21:59 10/17/24 22:30 48 MLS/HR laboratory and microbiology Laboratory Tests 10/18/24 03:24 Test 10/18/24 03:24 Range/Units Serum Glucose 118 H 74-106 mg/dL Assessment/Plan Impression Acute hypoxemic respiratory failure Perforated viscus Septic shock Smoker Patient seen and examined in ICU Events On mechanical ventilation S/p intubation PEEP 8, FiO2 60% CTA bilat pl effusion ?empyema s/p thora right side today pus like fluid 200 cc sent for cx Management obtain CT chest hold lovenox will plan for right chest tube tmr continue Vent support Titrate to maintain sats 90% or above Continue antibiotics F/u cultures Bronchodilators Monitor renal function Monitor electrolytes Supplement as needed HD per nephrology Pressors as needed for hemodynamic support To maintain a mean arterial pressure of 65 mmHg F/u GI DVT prophylaxis prognosis poor Critical care time 35 minutes Dietary Evaluation Review Comments: 1. Continue TPN to meet at least 75% estimated needs 2. Continue current POC Expected Outcomes/Goals: FU 2-3 days to meet adequate energy & protein within 7 days of NPO Protein Calorie Malnutrition: Severe (rn) Plan discussed with: Other (rn) CC Plasma Assessment Blood Product Administration S: [id number] VALENTE DEE MD October 18, 2024 09:07
--- NOTE | 2024-10-18 09:08 | DVHNC2 ---
Procedure - Right-sided thoracentesis Indication pleural effusion Procedure in detail Consent was obtained time-out performed per protocol patient was placed in the supine position ultrasound was used to localize the right pleural fluid. ChloraPrep was used to clean the operative field sterile drapes he is to cover the area local analgesia lidocaine 1% 3 cc. Pus-like blood stained fluid was obtained with the size 8 Azeri catheter with direct ultrasound guidance approx imately 200 cc. Sample sent for diagnostic tests Gram stain culture cell count and differential protein glucose LDH catheter removed band-aid applied VALENTE DEE MD October 18, 2024 09:08
--- NOTE | 2024-10-18 09:43 | DVHPN2 ---
Progress Note Date Seen: October 18, 2024 Has the PT tested + for MRSA If YES, has PT been informed?: No Medical Necessity Reason Pt with a Central, PICC or Fol: Yes The following are medically ne: Gómez Catheter Reason for ógmez catheter: Strict I&O Subjective Patient reports: Other Review of Systems: Deferred Objective vital signs Vital Sign Date Time Temp Pulse Resp B/P (MAP) Pulse Ox O2 Delivery O2 Flow Rate FiO2 10/18/24 08:30 73 28 103/50 (67) 100 50 10/18/24 07:55 Mechanical Ventilator+ 10/18/24 07:45 97.7 97.7 Total Intake and Output 10/17/24 10/17/24 10/18/24 15:00 23:00 07:00 Intake Total 1417.836 ml 1861.909 ml 1093.825 ml Output Total 1560 ml 2155 ml Balance 1417.836 ml 301.909 ml -1061.175 ml medications Current Medications Medications Dose Ordered Sig/Wally Route Start Time Stop Time Status Last Admin Dose Admin Fentanyl Citrate 250 ml @ 2.5 mls/hr Q24H IV 10/04/24 09:45 10/18/24 02:09 20 MLS/HR Ondansetron HCl 4 mg Q4HP PRN IV 10/04/24 11:45 Morphine Sulfate 2 mg Q4HPRN PRN IV 10/04/24 11:45 Nitroglycerin 0.4 mg Q5MINP PRN SL 10/04/24 11:45 Morphine Sulfate 2 mg Q30M PRN IV 10/04/24 11:45 Lorazepam 50 mg/ Sodium Chloride 50 ml @ 1 mls/hr Q24H IV 10/04/24 18:15 Cancel Midazolam HCl 50 ml @ 1 mls/hr Q24H IV 10/04/24 18:30 10/18/24 07:12 5 MLS/HR Vasopressin 20 units/Sodium Chloride 100 ml @ 12 mls/hr Q8H20M IV 10/04/24 20:30 10/17/24 07:23 3 MLS/HR Acetaminophen 650 mg Q6HPRN PRN [place] 10/04/24 21:00 10/11/24 15:19 650 MG Amino Acids 0 ml @ 0 mls/hr PER PHARMACY IV 10/05/24 14:30 UNV Amino Acids 0 ml @ 0 mls/hr PER PHARMACY IV 10/05/24 14:30 Diagnostic Test (Pha) 1 strip Q6HR 10/05/24 18:00 10/18/24 05:54 1 STRIP Insulin Human Regular FOLLOW SLIDING SCALE Q6HR SC 10/05/24 18:00 10/15/24 11:13 2 UNITS Dextrose 50 ml UD IV 10/05/24 14:45 Meropenem 50 ml @ 17 mls/hr Q12HR IV 10/07/24 10:00 UNV Micafungin Sodium 100 mg/Sodium Chloride 100 ml @ 100 mls/hr DAILY IV 10/07/24 10:00 10/18/24 07:24 100 MLS/HR Labetalol HCl 10 mg Q2HPRN PRN IV 10/08/24 09:30 Propofol 100 ml @ 2.181 mls/ hr Q24H IV 10/10/24 10:30 10/18/24 07:13 10.905 MLS/HR Pantoprazole Sodium 40 mg DAILY IV 10/12/24 10:00 10/18/24 07:12 40 MG Linezolid 300 ml @ 150 mls/hr Q12HR IV 10/13/24 10:00 10/18/24 08:23 150 MLS/HR Levalbuterol HCl 0.625 mg Q6HR NEB 10/13/24 12:00 10/18/24 06:39 0.625 MG Ipratropium [place] 0.5 mg Q6HR NEB 10/13/24 12:00 10/18/24 06:39 0.5 MG Meropenem 50 ml @ 17 mls/hr Q12H IV 10/13/24 14:00 10/18/24 02:10 17 MLS/HR Norepinephrine Bitartrate 32 mg/ Sodium Chloride 250 ml @ 0.938 mls/ hr Q24H IV 10/14/24 10:15 10/18/24 07:19 1.875 MLS/HR Enoxaparin Sodium 80 mg Q24H SC 10/14/24 19:00 10/17/24 17:16 80 MG Bumetanide 12.5 mg/Miscellaneous 50 ml @ 2 mls/hr Q24H IV 10/15/24 11:45 10/18/24 02:12 2 MLS/HR Sodium Chloride 100 meq/Sodium Acetate 40 meq/ Calcium Gluconate 6.95 meq/ Magnesium Sulfate 2 meq/ Multivitamins 10 ml/Amino Acids/ Dextrose/Purified Water 1,170.4462 ml @ 48 mls/hr [id number] IV 10/17/24 22:00 10/18/24 21:59 10/17/24 22:30 48 MLS/HR Examination: GENERAL:Abnormal, LUNGS:Abnormal, ABDOMEN:Abnormal laboratory and microbiology Laboratory Tests 10/18/24 03:24 Test 10/18/24 03:24 Range/Units Serum Glucose 118 H 74-106 mg/dL Microbiology Date/Time Source Procedure Growth Status 10/18/24 09:21 Pleural Fluid Received 10/16/24 12:05 Bronchial Washings Gram Stain Pending Resulted 10/16/24 12:05 Bronchial Washings Respiratory Culture - Preliminary Resulted 10/13/24 21:30 Voided Urine Urine Culture - Final Complete 10/13/24 14:20 Blood Blood Culture - Preliminary NO GROWTH AFTER 72 HOURS OF INCUBATION. Resulted 10/04/24 17:10 Nose MRSA Screen - Final Complete Problem List/Assessment/Plan Problem List/Assessment/Plan 48-year-old male presents to the hospital abdominal pain patient was diagnosed with acute gastric perforation status post surgery . Acute kidney injury hemodynamically mediated requiring acute inpatient hemodialysis Acute respiratory failure Perforated gastric ulcer status post exploratory laparoscopic surgery Hypokalemia Anemia due to chronic disease/inflammation Hemodialysis treatment today fluid removal as tolerated potassium bath 4K due to hypokalemia Albumin for support Avoid hypotension Strict Is&Os Continue diuretic therapy patient is showing improvement in urinary output which may indicate renal recovery Appearance her primary medical team Plan discussed with: Other My Orders My Orders Orders - ISABELLE CASTELLANO MD Procedure Category Date Status Time Dialysis Nursing CINTHIA 10/18/24 In Process Message 07:00 Document Fluid Input CINTHIA 10/18/24 In Process And Outpu 07:00 Hemodialysis Orders ORDERS 10/18/24 Transmitted 09:36 Dietary Evaluation Review Comments: 1. Continue TPN to meet at least 75% estimated needs 2. Continue current POC Expected Outcomes/Goals: FU 2-3 days to meet adequate energy & protein within 7 days of NPO Protein Calorie Malnutrition: Severe (rn) Critical Care Time (mins): 33 CC Plasma Assessment Blood Product Administration S: [id number] ISABELLE CASTELLANO MD October 18, 2024 09:43
[2024-10-18] MEDS: ALBUMIN 25% 100 ML IV ONE (10:37)
--- NOTE | 2024-10-18 11:41 | DVHPN2 ---
Progress Note - Dictate Date Seen: October 18, 2024 Has the PT tested + for MRSA If YES, has PT been informed?: No Medical Necessity Reason Pt with a Central, PICC or Fol: Yes The following are medically ne: Gómez Catheter Reason for gómez catheter: Strict I&O Subjective E: right thoracentesis with 200 mL drained. vital signs Vital Sign Date Time Temp Pulse Resp B/P (MAP) Pulse Ox O2 Delivery O2 Flow Rate FiO2 10/18/24 10:20 83 28 96/52 (67) 100 50 10/18/24 09:44 Mechanical Ventilator+ 10/18/24 07:45 97.7 97.7 Total Intake and Output 10/17/24 10/17/24 10/18/24 14:59 22:59 06:59 Intake Total 1387.176 ml 1809.302 ml 1186.405 ml Output Total 1560 ml 2155 ml Balance 1387.176 ml 249.302 ml -968.595 ml medications Current Medications Medications Dose Ordered Sig/Wally Route Start Time Stop Time Status Last Admin Dose Admin Fentanyl Citrate 250 ml @ 2.5 mls/hr Q24H IV 10/04/24 09:45 10/18/24 10:28 20 MLS/HR Ondansetron HCl 4 mg Q4HP PRN IV 10/04/24 11:45 Morphine Sulfate 2 mg Q4HPRN PRN IV 10/04/24 11:45 Nitroglycerin 0.4 mg Q5MINP PRN SL 10/04/24 11:45 Morphine Sulfate 2 mg Q30M PRN IV 10/04/24 11:45 Lorazepam 50 mg/ Sodium Chloride 50 ml @ 1 mls/hr Q24H IV 10/04/24 18:15 Cancel Midazolam HCl 50 ml @ 1 mls/hr Q24H IV 10/04/24 18:30 10/18/24 07:12 5 MLS/HR Vasopressin 20 units/Sodium Chloride 100 ml @ 12 mls/hr Q8H20M IV 10/04/24 20:30 10/17/24 07:23 3 MLS/HR Acetaminophen 650 mg Q6HPRN PRN [place] 10/04/24 21:00 10/11/24 15:19 650 MG Amino Acids 0 ml @ 0 mls/hr PER PHARMACY IV 10/05/24 14:30 UNV Amino Acids 0 ml @ 0 mls/hr PER PHARMACY IV 10/05/24 14:30 Diagnostic Test (Pha) 1 strip Q6HR 10/05/24 18:00 10/18/24 10:38 1 STRIP Insulin Human Regular FOLLOW SLIDING SCALE Q6HR SC 10/05/24 18:00 10/15/24 11:13 2 UNITS Dextrose 50 ml UD IV 10/05/24 14:45 Meropenem 50 ml @ 17 mls/hr Q12HR IV 10/07/24 10:00 UNV Micafungin Sodium 100 mg/Sodium Chloride 100 ml @ 100 mls/hr DAILY IV 10/07/24 10:00 10/18/24 07:24 100 MLS/HR Labetalol HCl 10 mg Q2HPRN PRN IV 10/08/24 09:30 Propofol 100 ml @ 2.181 mls/ hr Q24H IV 10/10/24 10:30 10/18/24 07:13 10.905 MLS/HR Pantoprazole Sodium 40 mg DAILY IV 10/12/24 10:00 10/18/24 07:12 40 MG Linezolid 300 ml @ 150 mls/hr Q12HR IV 10/13/24 10:00 10/18/24 08:23 150 MLS/HR Levalbuterol HCl 0.625 mg Q6HR NEB 10/13/24 12:00 10/18/24 06:39 0.625 MG Ipratropium [place] 0.5 mg Q6HR NEB 10/13/24 12:00 10/18/24 06:39 0.5 MG Meropenem 50 ml @ 17 mls/hr Q12H IV 10/13/24 14:00 10/18/24 02:10 17 MLS/HR Norepinephrine Bitartrate 32 mg/ Sodium Chloride 250 ml @ 0.938 mls/ hr Q24H IV 10/14/24 10:15 10/18/24 07:19 1.875 MLS/HR Enoxaparin Sodium 80 mg Q24H SC 10/14/24 19:00 10/17/24 17:16 80 MG Bumetanide 12.5 mg/Miscellaneous 50 ml @ 2 mls/hr Q24H IV 10/15/24 11:45 10/18/24 02:12 2 MLS/HR Sodium Chloride 100 meq/Sodium Acetate 40 meq/ Calcium Gluconate 6.95 meq/ Magnesium Sulfate 2 meq/ Multivitamins 10 ml/Amino Acids/ Dextrose/Purified Water 1,170.4462 ml @ 48 mls/hr [id number] IV 10/17/24 22:00 10/18/24 21:59 10/17/24 22:30 48 MLS/HR objective GEN: sedated. intubated. ABD: surgical incision clean. NGT 250 mL last night. min today. KWAN 255 mL drains. scant from R drain. CT ABD/PELVIS: no leak. laboratory and microbiology Laboratory Tests 10/18/24 03:24 Test 10/18/24 03:24 Range/Units Serum Glucose 118 H 74-106 mg/dL Assessment/Plan A: 1. POD #14 s/p ex lap with repair of large perforated pyloric ulcer 2. septic shock on pressors 3. GIOVANI 4. PNA P: 1. consider starting TF tomorrow. Dietary Evaluation Review Comments: 1. Continue TPN to meet at least 75% estimated needs 2. Continue current POC Expected Outcomes/Goals: FU 2-3 days to meet adequate energy & protein within 7 days of NPO Protein Calorie Malnutrition: Severe (rn) Plan discussed with: Other CC Plasma Assessment Blood Product Administration S: [id number] SAMMIE LEONARDO MD October 18, 2024 11:40
[2024-10-18] MEDS ORDERED: POTASSIUM CHL 20MEQ/100ML 100 ML IV ONE (11:45)
--- NOTE | 2024-10-18 16:26 | DVH ---
Procedure: CT CHEST WITHOUT CONTRAST Reason for study/Clinical History: Right Emphysema Comparison Study: CT chest 10/14/2024 Exam Date: 10/18/2024 02:57 PM TECHNIQUE: Multidetector CT of the chest was performed from the lung apices to the upper abdomen with out the use of intravenous contract. Axial, coronal and sagittal multiplanar reformats were performed . Radiation Dose Information: CT Dose: CTDI volume is 9.87 mGy. Dose-length product is 386.94 mGy*cm The dose indicators for CT are the volume Computed Tomography (CT) Dose Index (CTDIvol) and the Dose Length Product (DLP), and are measured in units of mGy and mGy-cm, respectively. These indicators are not patient dose, but values generated from the CT scanner acquisition factors. The report includes radiation exposure data for exposures received during this examination. FINDINGS: Lower neck: Normal thyroid. Lungs: Compared to 10/14/2024 there is improvement of the bilateral consolidative airspace opacities . There is residual diffuse/patchy ground-glass opacification. Compressive bilateral atelectasis in t he lower lobes. There are emphysematous changes and scattered subpleural blebs/bulla. Heart/Vascular Structures: Normal heart size. No pericardial effusion. Lymph Nodes: No adenopathy by size criteria. Pleura: Moderate bilateral pleural effusions are similar from prior. Musculoskeletal: No acute osseous abnormality. Soft tissues: Normal. Lines and tubes: Endotracheal tube is in satisfactory position. Enteric tube enters the stomach with the tip outside the field of view. Right IJ CVC terminates in the SVC. Left IJ CVC terminates at the brachiocephalic / SVC junction. Upper abdomen: Partially visualized cholecystostomy tube as well as a surgical drain at the posterior margin of the liver. IMPRESSION: 1. Compared to CT on 10/14/2024 there is improvement of the bilateral lung consolidations with residua l diffuse/ patchy ground-glass opacification. 2. Moderate bilateral pleural effusions are similar from prior. 3. Emphysematous changes with subpleural blebs/bulla. 4. Lines and tubes are in satisfactory position. Radiation optimization: All CT scans at this facility use at least one of these dose optimization halie hniques: automated exposure control mA and/or kV adjustment per patient size (includes targeted exam s where dose is matched to clinical indication) or iterative reconstruction.
[2024-10-18] MEDS: TPN PER PHARMACY IV NR (21:57)
[2024-10-19] VITALS (112 sets, daily range): BP systolic 86–176; BP diastolic 44–106; PULSE 87–115; RESP 21–31; TEMP 97.5–99.3; O2SAT 86–100
[2024-10-19 03:37] LABS: Hemoglobin 8.0 g/dL (13.5-17.5); Mean Corpuscular Volume 84.1 fL (80.0-100.0)
[2024-10-19 03:40] LABS: Hematocrit 23.3 % (41.0-53.0); Mean Corpuscular Hemoglobin 28.8 pg (28.0-32.0)
[2024-10-19 03:56] LABS: Alanine Aminotransferase 34 U/L (7-40); Anion Gap 7 (5-15); BUN/Creatinine Ratio 14.3 (10.0-20.0); Magnesium 1.8 mg/dL (1.6-2.6); Sodium 136 mmol/L (136-145); Total Protein 5.8 g/dL (5.7-8.2)
[2024-10-19 03:57] LABS: Albumin 2.6 g/dL (3.2-4.8); Alkaline Phosphatase 166 U/L (46-116); Bilirubin, Total 2.8 mg/dL (0.2-1.0); Blood Urea Nitrogen 49 mg/dL (9-23); Calcium 8.4 mg/dL (8.7-10.4); Carbon Dioxide 32 mmol/L (20-31); Chloride 97 mmol/L (98-107); Glucose 135 mg/dL (74-106); Potassium 3.1 mmol/L (3.5-5.1); Triglycerides 333 mg/dL (< 150)
--- NOTE | 2024-10-19 04:32 | DVH ---
CHEST RADIOGRAPH Indication: pna Technique: Single frontal view of the chest was obtained Comparison: XY CHEST PORTABLE on DOS: 10/18/24, XY CHEST PORTABLE on DOS: 10/17/24, XY CHEST XRAY 1 VIE W on DOS: 10/16/24 IMPRESSION: Heart is stable in size. Diffuse interstitial and alveolar airspace opacities appear similar with pr obable small bilateral pleural effusions, right greater than left. Support lines and tubes appear unc hanged in satisfactory position. No pneumothorax. Overall findings appear similar to mildly improved.
[2024-10-19 04:43] LABS: Total Cells Counted 100.0 (100)
[2024-10-19 07:19] LABS: Base Excess 7.7 mmol/L (-2.0-3.0)
[2024-10-19] MEDS: POTASSIUM CHL 20MEQ/100ML 100 ML IV ONE (10:24)
--- NOTE | 2024-10-19 10:33 | DVHPN2 ---
Progress Note Date Seen: Oct 19, 2024 Has the PT tested + for MRSA If YES, has PT been informed?: No Medical Necessity Reason Pt with a Central, PICC or Fol: Yes The following are medically ne: Central Line, Gómez Catheter Reason for gómez catheter: Strict I&O Subjective Review of Systems: Deferred Objective vital signs Vital Sign Date Time Temp Pulse Resp B/P (MAP) Pulse Ox O2 Delivery O2 Flow Rate FiO2 10/19/24 10:06 104 28 146/82 (103) 99 30 10/19/24 09:36 Mechanical Ventilator+ 10/19/24 08:00 98.1 98.1 Total Intake and Output 10/18/24 10/18/24 10/19/24 15:00 23:00 07:00 Intake Total 848.517 ml 885.902 ml 741.136 ml Output Total 1755 ml 1860 ml Balance 848.517 ml -869.098 ml -1118.864 ml medications Current Medications Medications Dose Ordered Sig/Wally Route Start Time Stop Time Status Last Admin Dose Admin Fentanyl Citrate 250 ml @ 2.5 mls/hr Q24H IV 10/04/24 09:45 10/19/24 06:18 10 MLS/HR Ondansetron HCl 4 mg Q4HP PRN IV 10/04/24 11:45 Morphine Sulfate 2 mg Q4HPRN PRN IV 10/04/24 11:45 Nitroglycerin 0.4 mg Q5MINP PRN SL 10/04/24 11:45 Morphine Sulfate 2 mg Q30M PRN IV 10/04/24 11:45 Lorazepam 50 mg/ Sodium Chloride 50 ml @ 1 mls/hr Q24H IV 10/04/24 18:15 Cancel Midazolam HCl 50 ml @ 1 mls/hr Q24H IV 10/04/24 18:30 10/19/24 06:19 3 MLS/HR Vasopressin 20 units/Sodium Chloride 100 ml @ 12 mls/hr Q8H20M IV 10/04/24 20:30 10/17/24 07:23 3 MLS/HR Acetaminophen 650 mg Q6HPRN PRN IA 10/04/24 21:00 10/11/24 15:19 650 MG Amino Acids 0 ml @ 0 mls/hr PER PHARMACY IV 10/05/24 14:30 UNV Amino Acids 0 ml @ 0 mls/hr PER PHARMACY IV 10/05/24 14:30 Diagnostic Test (Pha) 1 strip Q6HR 10/05/24 18:00 10/19/24 06:15 1 STRIP Insulin Human Regular FOLLOW SLIDING SCALE Q6HR SC 10/05/24 18:00 10/19/24 00:12 2 UNITS Dextrose 50 ml UD IV 10/05/24 14:45 Meropenem 50 ml @ 17 mls/hr Q12HR IV 10/07/24 10:00 UNV Micafungin Sodium 100 mg/Sodium Chloride 100 ml @ 100 mls/hr DAILY IV 10/07/24 10:00 10/19/24 07:24 100 MLS/HR Labetalol HCl 10 mg Q2HPRN PRN IV 10/08/24 09:30 Propofol 100 ml @ 2.181 mls/ hr Q24H IV 10/10/24 10:30 10/19/24 06:17 15.267 MLS/HR Pantoprazole Sodium 40 mg DAILY IV 10/12/24 10:00 10/19/24 07:24 40 MG Linezolid 300 ml @ 150 mls/hr Q12HR IV 10/13/24 10:00 10/19/24 08:35 150 MLS/HR Levalbuterol HCl 0.625 mg Q6HR NEB 10/13/24 12:00 10/19/24 06:08 0.625 MG Ipratropium [place] 0.5 mg Q6HR NEB 10/13/24 12:00 10/19/24 06:08 0.5 MG Meropenem 50 ml @ 17 mls/hr Q12H IV 10/13/24 14:00 10/19/24 02:00 17 MLS/HR Norepinephrine Bitartrate 32 mg/ Sodium Chloride 250 ml @ 0.938 mls/ hr Q24H IV 10/14/24 10:15 10/18/24 07:19 1.875 MLS/HR Enoxaparin Sodium 80 mg Q24H SC 10/14/24 19:00 10/17/24 17:16 80 MG Bumetanide 12.5 mg/Miscellaneous 50 ml @ 2 mls/hr Q24H IV 10/15/24 11:45 10/18/24 17:07 2 MLS/HR Sodium Chloride 80 meq/Potassium Chloride 10 meq/ Calcium Gluconate 2.3 meq/Magnesium Sulfate 6 meq/ Multivitamins 10 ml/Amino Acids/ Dextrose 1,341.4462 ml @ 56 mls/hr [id number] IV 10/18/24 22:00 10/19/24 21:59 10/18/24 21:57 56 MLS/HR Examination: GENERAL:Abnormal, LUNGS:Abnormal, ABDOMEN:Abnormal, SKIN:Abnormal laboratory and microbiology Laboratory Tests 10/19/24 03:04 Test 10/19/24 03:04 Range/Units Serum Glucose 135 H 74-106 mg/dL Microbiology Date/Time Source Procedure Growth Status 10/18/24 09:21 Pleural Fluid Received 10/16/24 12:05 Bronchial Washings Gram Stain - Final Complete 10/16/24 12:05 Bronchial Washings Respiratory Culture - Final Complete 10/13/24 21:30 Voided Urine Urine Culture - Final Complete 10/13/24 14:20 Blood Blood Culture - Final NO GROWTH AFTER 5 DAYS OF INCUBATION. Complete 10/04/24 17:10 Nose MRSA Screen - Final Complete Problem List/Assessment/Plan Problem List/Assessment/Plan 48-year-old male presents to the hospital abdominal pain patient was diagnosed with acute gastric perforation status post surgery . Acute kidney injury hemodynamically mediated requiring acute inpatient hemodialysis Acute respiratory failure Perforated gastric ulcer status post exploratory laparoscopic surgery Hypokalemia Anemia due to chronic disease/inflammation volume edema 2+ diffusely UOP 2.5L , BP elevated, now off pressors hold HD for next 24hrs and eval continue bumex drip, continue aggressive potassium replacements if starts tube feeds today use non K restricted and will start aldactone for continued K sparing+ diuresis Albumin for support Avoid hypotension Strict Is&Os Plan discussed with: Other Dietary Evaluation Review Comments: 1. Continue TPN to meet at least 75% estimated needs 2. Continue current POC Expected Outcomes/Goals: FU 2-3 days to meet adequate energy & protein within 7 days of NPO Protein Calorie Malnutrition: Severe (rn) Critical Care Time (mins): 33 CC Plasma Assessment Blood Product Administration S: [id number] ISABELLE CASTELLANO MD Oct 19, 2024 10:33
[2024-10-19] MEDS: POTASSIUM CHL 20MEQ/100ML 100 ML IV SCH (11:08)
--- NOTE | 2024-10-19 11:49 | DVHPN2 ---
Subjective Patient intubated and sedated Reviewed: Care Plan, H&P, Labs, Medications, Previous Orders, Radiology, Other (Consultants) Changes from previous H/P or p: No Changes General: Per HPI Objective Vitals Vital Signs Date Time Temp Pulse Resp B/P (MAP) Pulse Ox O2 Delivery O2 Flow Rate FiO2 10/19/24 11:32 30 10/19/24 11:32 28 98 Mechanical Ventilator+ 10/19/24 11:32 105 10/19/24 11:30 97.9 151/91 (111) 97.9 Intake/Output Intake and Output 10/19/24 07:00 Intake Total 2475.555 ml Output Total 3615 ml Balance -1139.445 ml Intake Oral 0 ml IV Total 2475.555 ml Output Urine Total 2500 ml Gastric Drainage Total 500 ml Chest Tube Drainage Total 200 ml Drainage Total 210 ml Other 205 ml # Bowel Movements 35 General Appearance: moderate distress, Other (Intubated and sedated) HEENT: Atraumatic, PERRLA Lungs: Other (Mechanical ventilation. Decreased breath sounds at bases) Cardiovascular: Regular rate, Normal S1, Normal S2, Other (Sinus rhythm) Abdomen: Other Neuro: Other (Unable to assess) Skin: Dry, Intact, Wounds, Other Psych/Mental Status: Other Medications Current Medications Medications Dose Ordered Sig/Wally Route Start Time Stop Time Status Last Admin Dose Admin Fentanyl Citrate 250 ml @ 2.5 mls/hr Q24H IV 10/04/24 09:45 10/19/24 06:18 10 MLS/HR Ondansetron HCl 4 mg Q4HP PRN IV 10/04/24 11:45 Morphine Sulfate 2 mg Q4HPRN PRN IV 10/04/24 11:45 Nitroglycerin 0.4 mg Q5MINP PRN SL 10/04/24 11:45 Morphine Sulfate 2 mg Q30M PRN IV 10/04/24 11:45 Lorazepam 50 mg/ Sodium Chloride 50 ml @ 1 mls/hr Q24H IV 10/04/24 18:15 Cancel Midazolam HCl 50 ml @ 1 mls/hr Q24H IV 10/04/24 18:30 10/19/24 06:19 3 MLS/HR Vasopressin 20 units/Sodium Chloride 100 ml @ 12 mls/hr Q8H20M IV 10/04/24 20:30 10/17/24 07:23 3 MLS/HR Acetaminophen 650 mg Q6HPRN PRN NV 10/04/24 21:00 10/11/24 15:19 650 MG Amino Acids 0 ml @ 0 mls/hr PER PHARMACY IV 10/05/24 14:30 UNV Amino Acids 0 ml @ 0 mls/hr PER PHARMACY IV 10/05/24 14:30 Diagnostic Test (Pha) 1 strip Q6HR 10/05/24 18:00 10/19/24 11:00 1 STRIP Insulin Human Regular FOLLOW SLIDING SCALE Q6HR SC 10/05/24 18:00 10/19/24 11:00 2 UNITS Dextrose 50 ml UD IV 10/05/24 14:45 Meropenem 50 ml @ 17 mls/hr Q12HR IV 10/07/24 10:00 UNV Micafungin Sodium 100 mg/Sodium Chloride 100 ml @ 100 mls/hr DAILY IV 10/07/24 10:00 10/19/24 07:24 100 MLS/HR Labetalol HCl 10 mg Q2HPRN PRN IV 10/08/24 09:30 Propofol 100 ml @ 2.181 mls/ hr Q24H IV 10/10/24 10:30 10/19/24 06:17 15.267 MLS/HR Pantoprazole Sodium 40 mg DAILY IV 10/12/24 10:00 10/19/24 07:24 40 MG Linezolid 300 ml @ 150 mls/hr Q12HR IV 10/13/24 10:00 10/19/24 08:35 150 MLS/HR Levalbuterol HCl 0.625 mg Q6HR NEB 10/13/24 12:00 10/19/24 06:08 0.625 MG Ipratropium [place] 0.5 mg Q6HR NEB 10/13/24 12:00 10/19/24 06:08 0.5 MG Meropenem 50 ml @ 17 mls/hr Q12H IV 10/13/24 14:00 10/19/24 02:00 17 MLS/HR Norepinephrine Bitartrate 32 mg/ Sodium Chloride 250 ml @ 0.938 mls/ hr Q24H IV 10/14/24 10:15 10/18/24 07:19 1.875 MLS/HR Enoxaparin Sodium 80 mg Q24H SC 10/14/24 19:00 10/17/24 17:16 80 MG Bumetanide 12.5 mg/Miscellaneous 50 ml @ 2 mls/hr Q24H IV 10/15/24 11:45 10/18/24 17:07 2 MLS/HR Sodium Chloride 80 meq/Potassium Chloride 10 meq/ Calcium Gluconate 2.3 meq/Magnesium Sulfate 6 meq/ Multivitamins 10 ml/Amino Acids/ Dextrose 1,341.4462 ml @ 56 mls/hr [id number] IV 10/18/24 22:00 10/19/24 21:59 10/18/24 21:57 56 MLS/HR Potassium Chloride 100 ml @ 50 mls/hr Q2H IV 10/19/24 12:00 10/19/24 15:59 10/19/24 11:08 50 MLS/HR Sodium Chloride 80 meq/Potassium Chloride 10 meq/ Potassium Phosphate 22 meq/ Magnesium Sulfate 12 meq/ Multivitamins 10 ml/Amino Acids/ Dextrose 1,393 ml @ 58 mls/hr Q24H2M IV 10/19/24 22:00 10/20/24 21:59 Laboratory Results Laboratory Tests 10/19/24 03:04 Chemistry Test 10/19/24 03:04 Albumin 2.6 g/dL (3.2-4.8) L Calcium Level 8.4 mg/dL (8.7-10.4) L Magnesium Level 1.8 mg/dL (1.6-2.6) Phosphorus Level 3.3 mg/dL (2.4-5.1) Total Protein 5.8 g/dL (5.7-8.2) Lipid panel Test 10/19/24 03:04 Triglycerides Level 333 mg/dL (< 150) H LFT Test 10/19/24 03:04 Alanine Aminotransferase (ALT) 34 U/L (7-40) Alkaline Phosphatase 166 U/L (46-116) H Aspartate Amino Transferase (AST) 90 U/L (13-40) H Total Bilirubin 2.8 mg/dL (0.2-1.0) H Urinalysis Test 10/05/24 15:05 10/11/24 18:00 Urine Color Light-yellow (Yellow) Urine Clarity Hazy (Clear) H Urine pH 5.5 (5.0-9.0) Urine Specific [place] 1.018 (1.001-1.035) Urine Protein 1+ (Negative) H Urine Ketones Negative (Negative) Urine Blood 3+ /uL (Negative) H Urine Nitrite Negative (Negative) Urine Bilirubin Negative (Negative) Urine Urobilinogen Normal mg/dL (Negative) Urine Leukocyte Esterase Negative /uL (Negative) Urine RBC 1 /hpf (0 - 3) Urine Microscopic WBC 9 /HPF (0-3) H Urine Squamous Epithelial Cells Few /hpf (<5) Urine Bacteria Few /hpf (None Seen) H Urine Mucus Few (None Seen) Urine Glucose Trace mg/dL (Normal) Urine Total Protein 85.0 mg/dL (1-14) H Urine Creatinine 48.05 mg/dL (30.0-125.0) Urine Sodium 76 mmol/L (40-220) Blood Gas Results Test 10/19/24 07:14 Arterial Blood pH 7.499 (7.350-7.450) FiO2 % 30.0 Microbiology Microbiology Date/Time Source Procedure Growth Status 10/18/24 09:21 Pleural Fluid Received 10/16/24 12:05 Bronchial Washings Gram Stain - Final Complete 10/16/24 12:05 Bronchial Washings Respiratory Culture - Final Complete 10/13/24 21:30 Voided Urine Urine Culture - Final Complete 10/13/24 14:20 Blood Blood Culture - Final NO GROWTH AFTER 5 DAYS OF INCUBATION. Complete 10/04/24 17:10 Nose MRSA Screen - Final Complete Labs and/or images reviewed: Labs reviewed by me, Image(s) reviewed by me Assessment/Plan Assessment/Plan Impression: -severe septic shock -pneumoperitoneum secondary to perforated gastric ulcer -acute kidney injury, hemodynamically mediated, probable VMN -acute hypoxic respiratory failure -shock liver -nicotine dependence -history of CVA -right upper extremity DVT -multifocal pneumonia, probable Gram-positive/Gram-negative etiology -anemia secondary to nutrition, renal failure -bilateral pleural effusions Plan: Events: FiO2 down to 30%. Off vasopressor therapy. CT scan with no signs of contrast extravasation. Weaned off tube feeding today, transitioned to Nepro via G-tube. Sedation vacation once okayed by pulmonology. Potassium replacement -continue antimicrobial coursed to Meropenem, micafungin, Zyvox -TPN -amiodarone drip per protocol -weaned vasopressors to keep map greater than 65 mmHg -Protonix 40 mg IV twice a day -further recommendations per surgical consultation -continue current sedation -continue Bumex drip. Nephrology recommendations appreciated -continue anticoagulation with Lovenox. -repeat labs, chest x-ray, ABG in a.m. -Discussed plan of care with . All questions answered. Critical care time spent with patient discussing and formulating plan of care: 90 minutes. This does not include time spent performing procedures. This medical document was created using an electronic medical record system with psicof[employer] dictation system. Although this document has been carefully reviewed, there may still be some phonetic and typographical errors. These areas are purely typographical due to imperfections of the software programs, and do not reflect any compromise in the patient's medical care. Plan discussed with: Patient, Spouse (Anastasia), Other (RN) My Orders Orders - CHEYENNE PIKE NP Procedure Category Date Status Time Potassium Chl PHA 10/19/24 In Process 20meq/100ml 10:00 Nutritional PHA 10/19/24 Verified Supplements (Nepro 12:00 Date of Service: Oct 19, 2024 Billing Provider: CHEYENNE PIKE NP Common Visit Codes: 86342-[id number] CARE 30-74 MIN, 15216-[id number] CARE-EACH +30MIN CHEYENNE PIKE NP Oct 19, 2024 11:49
--- NOTE | 2024-10-19 13:27 | DVHNC2 ---
Procedure - Procedure right-sided George catheter placement with ultrasound guidance Indication parapneumonic effusion/employment Procedure in detail consent was obtained time-out performed per protocol patient was placed in the decubitus position ChloraPrep x3 to cleaning operative field sterile drapes used to cover the area local analgesia lidocaine 1% 10 cc. Seldinger technique employed and a size 14 Kinyarwanda catheter was advanced with the ultrasound guidance in the right pleural space and connected to the suction device. Secured with sutures and sterile dressing applied No complications Chest x-ray ordered VALENTE DEE MD Oct 19, 2024 13:27
--- NOTE | 2024-10-19 13:29 | DVHPN2 ---
Progress Note - Dictate Date Seen: Oct 19, 2024 Has the PT tested + for MRSA If YES, has PT been informed?: No Medical Necessity Reason Pt with a Central, PICC or Fol: Yes The following are medically ne: Central Line, Gómez Catheter Reason for gómez catheter: Strict I&O vital signs Vital Sign Date Time Temp Pulse Resp B/P (MAP) Pulse Ox O2 Delivery O2 Flow Rate FiO2 10/19/24 11:51 101 28 157/90 (112) 98 30 10/19/24 11:32 Mechanical Ventilator+ 10/19/24 11:30 97.9 97.9 Total Intake and Output 10/18/24 10/18/24 10/19/24 14:59 22:59 06:59 Intake Total 865.476 ml 737.116 ml 891.136 ml Output Total 1755 ml 1860 ml Balance 865.476 ml -1017.884 ml -968.864 ml medications Current Medications Medications Dose Ordered Sig/Wally Route Start Time Stop Time Status Last Admin Dose Admin Fentanyl Citrate 250 ml @ 2.5 mls/hr Q24H IV 10/04/24 09:45 10/19/24 06:18 10 MLS/HR Ondansetron HCl 4 mg Q4HP PRN IV 10/04/24 11:45 Morphine Sulfate 2 mg Q4HPRN PRN IV 10/04/24 11:45 Nitroglycerin 0.4 mg Q5MINP PRN SL 10/04/24 11:45 Morphine Sulfate 2 mg Q30M PRN IV 10/04/24 11:45 Lorazepam 50 mg/ Sodium Chloride 50 ml @ 1 mls/hr Q24H IV 10/04/24 18:15 Cancel Midazolam HCl 50 ml @ 1 mls/hr Q24H IV 10/04/24 18:30 10/19/24 06:19 3 MLS/HR Vasopressin 20 units/Sodium Chloride 100 ml @ 12 mls/hr Q8H20M IV 10/04/24 20:30 10/17/24 07:23 3 MLS/HR Acetaminophen 650 mg Q6HPRN PRN ID 10/04/24 21:00 10/11/24 15:19 650 MG Amino Acids 0 ml @ 0 mls/hr PER PHARMACY IV 10/05/24 14:30 UNV Diagnostic Test (Pha) 1 strip Q6HR 10/05/24 18:00 10/19/24 11:00 1 STRIP Insulin Human Regular FOLLOW SLIDING SCALE Q6HR SC 10/05/24 18:00 10/19/24 11:00 2 UNITS Dextrose 50 ml UD IV 10/05/24 14:45 Meropenem 50 ml @ 17 mls/hr Q12HR IV 10/07/24 10:00 UNV Micafungin Sodium 100 mg/Sodium Chloride 100 ml @ 100 mls/hr DAILY IV 10/07/24 10:00 10/19/24 07:24 100 MLS/HR Labetalol HCl 10 mg Q2HPRN PRN IV 10/08/24 09:30 Propofol 100 ml @ 2.181 mls/ hr Q24H IV 10/10/24 10:30 10/19/24 06:17 15.267 MLS/HR Pantoprazole Sodium 40 mg DAILY IV 10/12/24 10:00 10/19/24 07:24 40 MG Linezolid 300 ml @ 150 mls/hr Q12HR IV 10/13/24 10:00 10/19/24 08:35 150 MLS/HR Levalbuterol HCl 0.625 mg Q6HR NEB 10/13/24 12:00 10/19/24 11:51 0.625 MG Ipratropium [place] 0.5 mg Q6HR NEB 10/13/24 12:00 10/19/24 11:51 0.5 MG Meropenem 50 ml @ 17 mls/hr Q12H IV 10/13/24 14:00 10/19/24 12:38 17 MLS/HR Norepinephrine Bitartrate 32 mg/ Sodium Chloride 250 ml @ 0.938 mls/ hr Q24H IV 10/14/24 10:15 10/18/24 07:19 1.875 MLS/HR Enoxaparin Sodium 80 mg Q24H SC 10/14/24 19:00 10/17/24 17:16 80 MG Bumetanide 12.5 mg/Miscellaneous 50 ml @ 2 mls/hr Q24H IV 10/15/24 11:45 10/18/24 17:07 2 MLS/HR Sodium Chloride 80 meq/Potassium Chloride 10 meq/ Calcium Gluconate 2.3 meq/Magnesium Sulfate 6 meq/ Multivitamins 10 ml/Amino Acids/ Dextrose 1,341.4462 ml @ 56 mls/hr [id number] IV 10/18/24 22:00 10/19/24 21:59 10/18/24 21:57 56 MLS/HR Potassium Chloride 100 ml @ 50 mls/hr Q2H IV 10/19/24 12:00 10/19/24 15:59 10/19/24 12:38 50 MLS/HR Sodium Chloride 80 meq/Potassium Chloride 10 meq/ Potassium Phosphate 22 meq/ Magnesium Sulfate 12 meq/ Multivitamins 10 ml/Amino Acids/ Dextrose 1,393 ml @ 58 mls/hr Q24H2M IV 10/19/24 22:00 10/20/24 21:59 Enteral Nutritional Formula 1,000 ml 30ML/HR GT 10/19/24 12:00 laboratory and microbiology Laboratory Tests 10/19/24 03:04 Test 10/19/24 03:04 Range/Units Serum Glucose 135 H 74-106 mg/dL Assessment/Plan Impression Acute hypoxemic respiratory failure Perforated viscus Septic shock Smoker Patient seen and examined in ICU Events On mechanical ventilation S/p intubation PEEP 8, FiO2 60% CTA bilat pl effusion ?empyema George catheter was placed earlier today by myself Details of procedure see separate note Management Chest tube management Continuous wall suction continue Vent support Titrate to maintain sats 90% or above . Weaning with the patient holiday and pressure support trials Continue antibiotics F/u cultures Bronchodilators Monitor renal function Monitor electrolytes Supplement as needed HD per nephrology Pressors as needed for hemodynamic support To maintain a mean arterial pressure of 65 mmHg F/u GI DVT prophylaxis prognosis poor Critical care time 35 minutes Dietary Evaluation Review Comments: 1. Continue TPN to meet at least 75% estimated needs 2. Continue current POC Expected Outcomes/Goals: FU 2-3 days to meet adequate energy & protein within 7 days of NPO Protein Calorie Malnutrition: Severe (rn) Plan discussed with: Other (rn) CC Plasma Assessment Blood Product Administration S: [id number] VALENTE DEE MD Oct 19, 2024 13:29
--- NOTE | 2024-10-19 14:50 | DVH ---
CHEST RADIOGRAPH Indication: right chest tube placement Technique: Single frontal view of the chest was obtained COMPARISON: 10/19/2024 FINDINGS: Right IJ catheter tip projects over the SVC. Left IJ catheter tip projects over the SVC. Nasogastric tube projects towards stomach. Endotracheal tube tip projects 4.5 cm above the dunia. Right chest pigtail catheter tip projects over the right lower lateral chest. The cardiac silhouette is enlarged. The lungs demonstrate bilateral patchy airspace opacities, slight ly decreased in the interval. The pulmonary vasculature is prominent. Small bilateral pleural effusio ns, decreased on the right. There is no pneumothorax. IMPRESSION: 1. As above
[2024-10-19 15:55] LABS: Potassium 3.6 mmol/L (3.5-5.1)
[2024-10-19 15:56] LABS: Anion Gap 8 (5-15); Carbon Dioxide 30 mmol/L (20-31); Chloride 98 mmol/L (98-107); Sodium 136 mmol/L (136-145)
[2024-10-19 15:57] LABS: Calcium 8.5 mg/dL (8.7-10.4)
[2024-10-19 16:01] LABS: BUN/Creatinine Ratio 15.2 (10.0-20.0)
[2024-10-19 16:05] LABS: Blood Urea Nitrogen 58 mg/dL (9-23)
[2024-10-19 16:15] LABS: Glucose 134 mg/dL (74-106)
[2024-10-19] MEDS: SPIRONOLACTONE 25 MG TAB GT SCH (18:02)
[2024-10-19] MEDS: EPOETIN ALFA-EPBX 10,000 UNIT/1ML VIAL SC SCH (18:20)
[2024-10-19] MEDS: [UNRECOGNIZED DRUG - OTHER] IV NR (22:11)
[2024-10-19] MEDS: POTASSIUM CHLORIDE IV NR (22:11)
[2024-10-19] MEDS: SODIUM CHLORIDE IV NR (22:11)
[2024-10-19] MEDS: POTASSIUM PHOSPHATE IV NR (22:11)
[2024-10-20] VITALS (109 sets, daily range): BP systolic 72–221; BP diastolic 41–196; PULSE 78–125; RESP 16–29; TEMP 97.9–99.9; O2SAT 92–100
[2024-10-20 03:44] LABS: Hematocrit 24.1 % (41.0-53.0); Hemoglobin 8.3 g/dL (13.5-17.5); Mean Corpuscular Hemoglobin 28.6 pg (28.0-32.0); Mean Corpuscular Volume 82.9 fL (80.0-100.0)
[2024-10-20 04:08] LABS: Iron 28.0 ug/dL (65-175); Total Iron Binding Capacity 175.0 ug/dL (250-425)
[2024-10-20 04:17] LABS: Anion Gap 10 (5-15); BUN/Creatinine Ratio 16.4 (10.0-20.0); Carbon Dioxide 29 mmol/L (20-31); Glucose 79 mg/dL (74-106); Magnesium 2.0 mg/dL (1.6-2.6); Total Protein 6.1 g/dL (5.7-8.2)
[2024-10-20 04:18] LABS: Alanine Aminotransferase 46 U/L (7-40); Alkaline Phosphatase 186 U/L (46-116); Bilirubin, Total 3.0 mg/dL (0.2-1.0); Blood Urea Nitrogen 68 mg/dL (9-23); Calcium 8.4 mg/dL (8.7-10.4); Chloride 94 mmol/L (98-107); Potassium 3.6 mmol/L (3.5-5.1); Sodium 133 mmol/L (136-145)
[2024-10-20 04:19] LABS: Albumin 2.6 g/dL (3.2-4.8)
--- NOTE | 2024-10-20 04:43 | DVH ---
CHEST RADIOGRAPH Indication: pna Technique: Single frontal view of the chest was obtained COMPARISON: XY CHEST PORTABLE on DOS: 10/19/24, XY CHEST PORTABLE on DOS: 10/19/24, XY CHEST PORTABLE on DOS: 10/18/24, XY CHEST PORTABLE on DOS: 10/17/24, XY CHEST XRAY 1 VIEW on DOS: 10/16/24 FINDINGS: Lines and Tubes: Endotracheal tube, enteric catheter, right and left central venous catheter and righ t chest tube in satisfactory position Lungs: Multifocal airspace disease Pleura: No effusion. No pneumothorax. Cardiomediastinal contours: Unremarkable Bones: Unremarkable IMPRESSION: Lines and tubes in satisfactory position. No significant interval change.
[2024-10-20 05:41] LABS: Giant Platelets Few; Smudge Cells 1 /100 WBC; Total Cells Counted 100.0 (100)
[2024-10-20 09:09] LABS: Base Excess 5.9 mmol/L (-2.0-3.0)
--- NOTE | 2024-10-20 10:32 | DVHPN2 ---
Subjective Patient intubated and sedated Reviewed: Care Plan, H&P, Labs, Medications, Previous Orders, Radiology, Other (Consultants) Changes from previous H/P or p: No Changes General: Per HPI Objective Vitals Vital Signs Date Time Temp Pulse Resp B/P (MAP) Pulse Ox O2 Delivery O2 Flow Rate FiO2 10/20/24 10:15 99 28 137/85 (102) 99 114/65 (81) 10/20/24 10:00 98.5 98.5 10/20/24 10:00 30 10/20/24 10:00 Mechanical Ventilator+ Intake/Output Intake and Output 10/20/24 07:00 Intake Total 2415.816 ml Output Total 4905 ml Balance -2489.184 ml Intake Oral 30 ml IV Total 2305.816 ml Tube Feeding 80 ml Output Urine Total 3750 ml Gastric Drainage Total 300 ml Chest Tube Drainage Total 555 ml Drainage Total 110 ml Other 190 ml # Bowel Movements 50 General Appearance: moderate distress, Other (Intubated and sedated) HEENT: Atraumatic, PERRLA Lungs: Other (Mechanical ventilation. Decreased breath sounds at bases) Cardiovascular: Regular rate, Normal S1, Normal S2, Other (Sinus rhythm) Abdomen: Other Neuro: Other (Unable to assess) Skin: Dry, Intact, Wounds, Other Psych/Mental Status: Other Medications Current Medications Medications Dose Ordered Sig/Wally Route Start Time Stop Time Status Last Admin Dose Admin Fentanyl Citrate 250 ml @ 2.5 mls/hr Q24H IV 10/04/24 09:45 10/20/24 05:35 25 MLS/HR Ondansetron HCl 4 mg Q4HP PRN IV 10/04/24 11:45 Morphine Sulfate 2 mg Q4HPRN PRN IV 10/04/24 11:45 Nitroglycerin 0.4 mg Q5MINP PRN SL 10/04/24 11:45 Morphine Sulfate 2 mg Q30M PRN IV 10/04/24 11:45 Lorazepam 50 mg/ Sodium Chloride 50 ml @ 1 mls/hr Q24H IV 10/04/24 18:15 Cancel Midazolam HCl 50 ml @ 1 mls/hr Q24H IV 10/04/24 18:30 10/20/24 08:55 15 MLS/HR Vasopressin 20 units/Sodium Chloride 100 ml @ 12 mls/hr Q8H20M IV 10/04/24 20:30 10/17/24 07:23 3 MLS/HR Acetaminophen 650 mg Q6HPRN PRN [place] 10/04/24 21:00 10/11/24 15:19 650 MG Amino Acids 0 ml @ 0 mls/hr PER PHARMACY IV 10/05/24 14:30 UNV Diagnostic Test (Pha) 1 strip Q6HR 10/05/24 18:00 10/20/24 06:04 1 STRIP Insulin Human Regular FOLLOW SLIDING SCALE Q6HR SC 10/05/24 18:00 10/19/24 11:00 2 UNITS Dextrose 50 ml UD IV 10/05/24 14:45 Meropenem 50 ml @ 17 mls/hr Q12HR IV 10/07/24 10:00 UNV Micafungin Sodium 100 mg/Sodium Chloride 100 ml @ 100 mls/hr DAILY IV 10/07/24 10:00 10/19/24 07:24 100 MLS/HR Labetalol HCl 10 mg Q2HPRN PRN IV 10/08/24 09:30 Propofol 100 ml @ 2.181 mls/ hr Q24H IV 10/10/24 10:30 10/19/24 18:02 4.3623 MLS/HR Pantoprazole Sodium 40 mg DAILY IV 10/12/24 10:00 10/19/24 07:24 40 MG Linezolid 300 ml @ 150 mls/hr Q12HR IV 10/13/24 10:00 10/19/24 22:19 150 MLS/HR Levalbuterol HCl 0.625 mg Q6HR NEB 10/13/24 12:00 10/20/24 06:10 0.625 MG Ipratropium [place] 0.5 mg Q6HR NEB 10/13/24 12:00 10/20/24 06:10 0.5 MG Meropenem 50 ml @ 17 mls/hr Q12H IV 10/13/24 14:00 10/20/24 02:00 17 MLS/HR Norepinephrine Bitartrate 32 mg/ Sodium Chloride 250 ml @ 0.938 mls/ hr Q24H IV 10/14/24 10:15 10/20/24 09:29 0.938 MLS/HR Enoxaparin Sodium 80 mg Q24H SC 10/14/24 19:00 10/19/24 18:02 80 MG Bumetanide 12.5 mg/Miscellaneous 50 ml @ 2 mls/hr Q24H IV 10/15/24 11:45 10/19/24 18:20 2 MLS/HR Sodium Chloride 80 meq/Potassium Chloride 10 meq/ Potassium Phosphate 22 meq/ Magnesium Sulfate 12 meq/ Multivitamins 10 ml/Amino Acids/ Dextrose 1,393 ml @ 58 mls/hr Q24H2M IV 10/19/24 22:00 10/20/24 21:59 Enteral Nutritional Formula 1,000 ml 30ML/HR GT 10/19/24 12:00 Spironolactone 25 mg BIDD GT 10/19/24 18:00 10/20/24 06:03 25 MG Epoetin Roger-epbx 10,000 unit MWF [place] 10/19/24 17:00 10/19/24 18:20 10,000 UNIT Albumin Human 100 ml @ 100 mls/hr Q8H IV 10/20/24 10:00 10/21/24 02:59 UNV Laboratory Results Laboratory Tests 10/20/24 03:22 10/20/24 03:23 Chemistry Test 10/19/24 15:40 10/20/24 03:22 Calcium Level 8.5 mg/dL (8.7-10.4) L 8.4 mg/dL (8.7-10.4) L Albumin 2.6 g/dL (3.2-4.8) L Magnesium Level 2.0 mg/dL (1.6-2.6) Phosphorus Level 4.0 mg/dL (2.4-5.1) Total Protein 6.1 g/dL (5.7-8.2) LFT Test 10/20/24 03:22 Alanine Aminotransferase (ALT) 46 U/L (7-40) H Alkaline Phosphatase 186 U/L (46-116) H Aspartate Amino Transferase (AST) 109 U/L (13-40) H Total Bilirubin 3.0 mg/dL (0.2-1.0) H Urinalysis Test 10/05/24 15:05 10/11/24 18:00 Urine Color Light-yellow (Yellow) Urine Clarity Hazy (Clear) H Urine pH 5.5 (5.0-9.0) Urine Specific [place] 1.018 (1.001-1.035) Urine Protein 1+ (Negative) H Urine Ketones Negative (Negative) Urine Blood 3+ /uL (Negative) H Urine Nitrite Negative (Negative) Urine Bilirubin Negative (Negative) Urine Urobilinogen Normal mg/dL (Negative) Urine Leukocyte Esterase Negative /uL (Negative) Urine RBC 1 /hpf (0 - 3) Urine Microscopic WBC 9 /HPF (0-3) H Urine Squamous Epithelial Cells Few /hpf (<5) Urine Bacteria Few /hpf (None Seen) H Urine Mucus Few (None Seen) Urine Glucose Trace mg/dL (Normal) Urine Total Protein 85.0 mg/dL (1-14) H Urine Creatinine 48.05 mg/dL (30.0-125.0) Urine Sodium 76 mmol/L (40-220) Blood Gas Results Test 10/20/24 07:39 Arterial Blood pH 7.531 (7.350-7.450) FiO2 % 30.0 Microbiology Microbiology Date/Time Source Procedure Growth Status 10/18/24 09:21 Pleural Fluid Gram Stain - Final Resulted 10/18/24 09:21 Pleural Fluid Body Fluid Culture - Preliminary Resulted 10/16/24 12:05 Bronchial Washings Gram Stain - Final Complete 10/16/24 12:05 Bronchial Washings Respiratory Culture - Final Complete 10/13/24 21:30 Voided Urine Urine Culture - Final Complete 10/13/24 14:20 Blood Blood Culture - Final NO GROWTH AFTER 5 DAYS OF INCUBATION. Complete 10/04/24 17:10 Nose MRSA Screen - Final Complete Labs and/or images reviewed: Labs reviewed by me, Image(s) reviewed by me Assessment/Plan Assessment/Plan Impression: -severe septic shock -pneumoperitoneum secondary to perforated gastric ulcer -acute kidney injury, hemodynamically mediated, probable VMN -acute hypoxic respiratory failure -shock liver -nicotine dependence -history of CVA -right upper extremity DVT -multifocal pneumonia, probable Gram-positive/Gram-negative etiology -anemia secondary to nutrition, renal failure -bilateral pleural effusions Plan: Events: FiO2 30%. Peep of eight. Patient oxygenating well. Chest tube placed by pulmonology for? Empyema. Serosanguineous fluid noted collection chamber. Hypotension noted. Instructed primary nurse to restart vasopressor therapy. Given pulmonary stability, recommend sedation vacation. -continue tube feeding -amiodarone drip per protocol -wean vasopressors to keep map greater than 65 mmHg -Protonix 40 mg IV twice a day -further recommendations per surgical consultation -continue current sedation -continue Bumex drip. Nephrology recommendations appreciated -continue anticoagulation with Lovenox. -repeat labs, chest x-ray, ABG in a.m. -Discussed plan of care with . All questions answered. Critical care time spent with patient discussing and formulating plan of care: 90 minutes. This does not include time spent performing procedures. This medical document was created using an electronic medical record system with [employer] system. Although this document has been carefully reviewed, there may still be some phonetic and typographical errors. These areas are purely typographical due to imperfections of the software programs, and do not reflect any compromise in the patient's medical care. Plan discussed with: Patient, Other (RN) My Orders Orders - CHEYENNE PIKE NP Procedure Category Date Status Time Nutritional PHA 10/19/24 In Process Supplements (Nepro 12:00 Tube Feeding DIET 10/19/24 Transmitted Dinner Abg W/ Co-Ox RT 10/20/24 Logged 06:00 Ceftriaxone Ivpb PHA 10/21/24 Verified Rocephin 09:00 Doxycycline PHA 10/20/24 Verified 100mg/100ml 10:30 Ventilator Orders RT 10/20/24 Verified 10:18 Basic Metabolic Panel LAB 10/21/24 Verified 04:00 Chest Portable XY 10/21/24 Verified 04:00 Abg W/ Co-Ox RT 10/21/24 Verified 04:00 Sedation Vacation CINTHIA 10/20/24 Verified 10:18 Date of Service: Oct 20, 2024 Billing Provider: CHEYENNE PIKE NP Common Visit Codes: 48793-CQQ/OBS DISCH DAY >30min CHEYENNE PIKE NP Oct 20, 2024 10:32
[2024-10-20] MEDS: DOXYCYCLINE 100MG/100ML 100 ML IV SCH (10:54)
[2024-10-20] MEDS: ALBUMIN 25% 100 ML IV SCH (11:18)
--- NOTE | 2024-10-20 11:26 | DVHPN2 ---
Progress Note Date Seen: Oct 20, 2024 Has the PT tested + for MRSA If YES, has PT been informed?: No Medical Necessity Reason Pt with a Central, PICC or Fol: Yes The following are medically ne: Central Line, Gómez Catheter Reason for gómez catheter: Strict I&O Subjective Review of Systems: RESPIRATORY:Abnormal Other Systems: Patient seen and examined by myself today in follow-up, patient remained intubated on ventilator Objective vital signs Vital Sign Date Time Temp Pulse Resp B/P (MAP) Pulse Ox O2 Delivery O2 Flow Rate FiO2 10/20/24 10:15 99 28 137/85 (102) 99 114/65 (81) 10/20/24 10:00 98.5 98.5 10/20/24 10:00 30 10/20/24 10:00 Mechanical Ventilator+ Total Intake and Output 10/19/24 10/19/24 10/20/24 15:00 23:00 07:00 Intake Total 1133.930 ml 676.886 ml 647 ml Output Total 2630 ml 2275 ml Balance 1133.930 ml -1953.114 ml -1628 ml medications Current Medications Medications Dose Ordered Sig/Wally Route Start Time Stop Time Status Last Admin Dose Admin Fentanyl Citrate 250 ml @ 2.5 mls/hr Q24H IV 10/04/24 09:45 10/20/24 05:35 25 MLS/HR Ondansetron HCl 4 mg Q4HP PRN IV 10/04/24 11:45 Morphine Sulfate 2 mg Q4HPRN PRN IV 10/04/24 11:45 Nitroglycerin 0.4 mg Q5MINP PRN SL 10/04/24 11:45 Morphine Sulfate 2 mg Q30M PRN IV 10/04/24 11:45 Lorazepam 50 mg/ Sodium Chloride 50 ml @ 1 mls/hr Q24H IV 10/04/24 18:15 Cancel Midazolam HCl 50 ml @ 1 mls/hr Q24H IV 10/04/24 18:30 10/20/24 08:55 15 MLS/HR Vasopressin 20 units/Sodium Chloride 100 ml @ 12 mls/hr Q8H20M IV 10/04/24 20:30 10/17/24 07:23 3 MLS/HR Acetaminophen 650 mg Q6HPRN PRN [place] 10/04/24 21:00 10/11/24 15:19 650 MG Amino Acids 0 ml @ 0 mls/hr PER PHARMACY IV 10/05/24 14:30 UNV Diagnostic Test (Pha) 1 strip Q6HR 10/05/24 18:00 10/20/24 06:04 1 STRIP Insulin Human Regular FOLLOW SLIDING SCALE Q6HR SC 10/05/24 18:00 10/19/24 11:00 2 UNITS Dextrose 50 ml UD IV 10/05/24 14:45 Meropenem 50 ml @ 17 mls/hr Q12HR IV 10/07/24 10:00 UNV Labetalol HCl 10 mg Q2HPRN PRN IV 10/08/24 09:30 Propofol 100 ml @ 2.181 mls/ hr Q24H IV 10/10/24 10:30 10/19/24 18:02 4.3623 MLS/HR Pantoprazole Sodium 40 mg DAILY IV 10/12/24 10:00 10/20/24 10:55 40 MG Levalbuterol HCl 0.625 mg Q6HR NEB 10/13/24 12:00 10/20/24 06:10 0.625 MG Ipratropium [place] 0.5 mg Q6HR NEB 10/13/24 12:00 10/20/24 06:10 0.5 MG Norepinephrine Bitartrate 32 mg/ Sodium Chloride 250 ml @ 0.938 mls/ hr Q24H IV 10/14/24 10:15 10/20/24 09:29 0.938 MLS/HR Bumetanide 12.5 mg/Miscellaneous 50 ml @ 2 mls/hr Q24H IV 10/15/24 11:45 10/19/24 18:20 2 MLS/HR Enteral Nutritional Formula 1,000 ml 30ML/HR GT 10/19/24 12:00 Spironolactone 25 mg BIDD GT 10/19/24 18:00 10/20/24 06:03 25 MG Epoetin Roger-epbx 10,000 unit MWF SC 10/19/24 17:00 10/20/24 11:20 10,000 UNIT Albumin Human 100 ml @ 100 mls/hr Q8H IV 10/20/24 10:30 10/21/24 03:29 10/20/24 11:18 100 MLS/HR Ceftriaxone Sodium 50 ml @ 100 mls/hr DAILY@09 IV 10/21/24 09:00 Doxycycline Hyclate 100 ml @ 50 mls/hr Q12H IV 10/20/24 10:30 10/20/24 10:54 50 MLS/HR Enoxaparin Sodium 70 mg DAILY SC 10/21/24 10:00 Examination: LUNGS:Normal, CVS:Normal, MSK:Normal laboratory and microbiology Laboratory Tests 10/20/24 03:23 10/20/24 03:22 Test 10/20/24 03:22 Range/Units Serum Glucose 79 74-106 mg/dL Microbiology Date/Time Source Procedure Growth Status 10/18/24 09:21 Pleural Fluid Gram Stain - Final Resulted 10/18/24 09:21 Pleural Fluid Body Fluid Culture - Preliminary Resulted 10/16/24 12:05 Bronchial Washings Gram Stain - Final Complete 10/16/24 12:05 Bronchial Washings Respiratory Culture - Final Complete 10/13/24 21:30 Voided Urine Urine Culture - Final Complete 10/13/24 14:20 Blood Blood Culture - Final NO GROWTH AFTER 5 DAYS OF INCUBATION. Complete 10/04/24 17:10 Nose MRSA Screen - Final Complete Problem List/Assessment/Plan Problem List/Assessment/Plan Acute kidney injury likely ATN, FeNa ,> 2% requiring intermittent hemodialysis Acute respiratory failure, patient intubated on ventilator Hemodynamic shock acute blood loss anemia Perforated gastric ulcer status post surgery 10/04 Hyponatremia resolved Pneumonia Sepsis Hypomagnesemia Empyema status post right chest tube Acute blood loss anemia status post PRBC Recommendations Hemodialysis tomorrow Epogen 38273 subQ 3 times weekly Gómez catheter Strict I&Os KCL replaced IV antibiotic Electrolytes replacement Magnesium sulfate IV piggyback We will continue to follow up Plan discussed with: Other (Nurse) My Orders My Orders Orders - MILADY ANDERSON MD Procedure Category Date Status Time Albumin 25% (Albutein) PHA 10/20/24 In Process 10:30 Dietary Evaluation Review Comments: 1. Continue TPN to meet at least 75% estimated needs 2. Continue current POC Expected Outcomes/Goals: FU 2-3 days to meet adequate energy & protein within 7 days of NPO Protein Calorie Malnutrition: Severe (rn) CC Plasma Assessment Blood Product Administration S: [id number] MILADY ANDERSON MD Oct 20, 2024 11:26
[2024-10-20 15:52] LABS: Base Excess 8.9 mmol/L (-2.0-3.0)
--- NOTE | 2024-10-20 19:43 | DVHPN2 ---
Progress Note - Dictate Date Seen: Oct 20, 2024 Has the PT tested + for MRSA If YES, has PT been informed?: No Medical Necessity Reason Pt with a Central, PICC or Fol: Yes The following are medically ne: Central Line, Gómez Catheter Reason for gómez catheter: Strict I&O Subjective Patient seen and examined at bedside. Sedated, intubated on mechanical ventilator. Overnight events reviewed. vital signs Vital Sign Date Time Temp Pulse Resp B/P (MAP) Pulse Ox O2 Delivery O2 Flow Rate FiO2 10/20/24 19:39 94 20 134/69 (90) 100 30 10/20/24 18:00 Mechanical Ventilator+ 10/20/24 16:00 99.0 99.0 Total Intake and Output 10/19/24 10/19/24 10/20/24 15:00 23:00 07:00 Intake Total 1133.930 ml 676.886 ml 647 ml Output Total 2630 ml 2275 ml Balance 1133.930 ml -1953.114 ml -1628 ml medications Current Medications Medications Dose Ordered Sig/Wally Route Start Time Stop Time Status Last Admin Dose Admin Fentanyl Citrate 250 ml @ 2.5 mls/hr Q24H IV 10/04/24 09:45 10/20/24 15:19 25 MLS/HR Ondansetron HCl 4 mg Q4HP PRN IV 10/04/24 11:45 Morphine Sulfate 2 mg Q4HPRN PRN IV 10/04/24 11:45 Nitroglycerin 0.4 mg Q5MINP PRN SL 10/04/24 11:45 Morphine Sulfate 2 mg Q30M PRN IV 10/04/24 11:45 Lorazepam 50 mg/ Sodium Chloride 50 ml @ 1 mls/hr Q24H IV 10/04/24 18:15 Cancel Midazolam HCl 50 ml @ 1 mls/hr Q24H IV 10/04/24 18:30 10/20/24 15:16 15 MLS/HR Vasopressin 20 units/Sodium Chloride 100 ml @ 12 mls/hr Q8H20M IV 10/04/24 20:30 10/17/24 07:23 3 MLS/HR Acetaminophen 650 mg Q6HPRN PRN [place] 10/04/24 21:00 10/11/24 15:19 650 MG Amino Acids 0 ml @ 0 mls/hr PER PHARMACY IV 10/05/24 14:30 UNV Diagnostic Test (Pha) 1 strip Q6HR 10/05/24 18:00 10/20/24 17:44 1 STRIP Insulin Human Regular FOLLOW SLIDING SCALE Q6HR SC 10/05/24 18:00 10/19/24 11:00 2 UNITS Dextrose 50 ml UD IV 10/05/24 14:45 Meropenem 50 ml @ 17 mls/hr Q12HR IV 10/07/24 10:00 UNV Labetalol HCl 10 mg Q2HPRN PRN IV 10/08/24 09:30 Propofol 100 ml @ 2.181 mls/ hr Q24H IV 10/10/24 10:30 10/19/24 18:02 4.3623 MLS/HR Pantoprazole Sodium 40 mg DAILY IV 10/12/24 10:00 10/20/24 10:55 40 MG Levalbuterol HCl 0.625 mg Q6HR NEB 10/13/24 12:00 10/20/24 17:53 0.625 MG Ipratropium Jenkins 0.5 mg Q6HR NEB 10/13/24 12:00 10/20/24 17:53 0.5 MG Norepinephrine Bitartrate 32 mg/ Sodium Chloride 250 ml @ 0.938 mls/ hr Q24H IV 10/14/24 10:15 10/20/24 09:29 0.938 MLS/HR Bumetanide 12.5 mg/Miscellaneous 50 ml @ 2 mls/hr Q24H IV 10/15/24 11:45 10/19/24 18:20 2 MLS/HR Enteral Nutritional Formula 1,000 ml 30ML/HR GT 10/19/24 12:00 Spironolactone 25 mg BIDD GT 10/19/24 18:00 10/20/24 18:22 25 MG Epoetin Roger-epbx 10,000 unit MWF SC 10/19/24 17:00 Hold 10/20/24 11:20 10,000 UNIT Albumin Human 100 ml @ 100 mls/hr Q8H IV 10/20/24 10:30 10/21/24 03:29 10/20/24 17:45 100 MLS/HR Ceftriaxone Sodium 50 ml @ 100 mls/hr DAILY@09 IV 10/21/24 09:00 Doxycycline Hyclate 100 ml @ 50 mls/hr Q12H IV 10/20/24 10:30 10/20/24 10:54 50 MLS/HR Enoxaparin Sodium 70 mg DAILY SC 10/21/24 10:00 objective Gen.: Patient lying in bed in medical ICU. Sedated, intubated on mechanical ventilator. Head: Normocephalic, atraumatic. Eyes: PERRLA. Ears: Normal external anatomy. Throat: Endotracheal tube and orogastric tube in place. Neck: Supple, trachea midline. Chest: Transmitted breath sounds bilaterally. Decreased air entry bilaterally. No wheezing. Bibasilar crackles. Cardiovascular: Positive S1, positive S2. Regular rate and rhythm. Abdomen: Positive bowel sounds in all 4 quadrants. Soft, nontender, nondistended. : Gómez in place. Normal external genitalia. Rectal: Deferred. Skin: Warm, dry. Intact. Extremities: 2+ radial pulses bilaterally. No lower extremity edema. Neuro: Sedated. laboratory and microbiology Laboratory Tests 10/20/24 03:23 10/20/24 03:22 Test 10/20/24 03:22 Range/Units Serum Glucose 79 74-106 mg/dL Assessment/Plan Impression: Acute hypoxic respiratory failure On mechanical ventilator Septic shock Perforated viscus Nicotine dependence Events: Remains on vent support On AC mode; RR 18, VT 550, PEEP 6, Fio2 30% Sedated on Versed/Fentanyl. ABG notable for alkalemia RR was tapered to 18 CXR reviewed, demonstrates devices in place. Multifocal opacities. Right chest tube in place. On pressors for hemodynamic support Levophed 6 mcg/min Titrate to keep mean arterial pressure greater than 65 mmHg. Chest tube in place Monitor output No air leak Bumex drip for diuresis. Monitor renal function Monitor electrolytes. Supplement as necessary. Monitor ins and outs. Continue antibiotics. Continue bronchodilators Monitor hemoglobin Protonix for GI prophylaxis Therapeutic Lovenox for DVT prophylaxis CTA bilat pl effusion ?empyema George catheter was placed on 10/19/[address] Astorga For details of procedure see separate note Chest tube management Continuous wall suction Labs and imaging reviewed. Rest of plan as noted below. Plan: s/p intubation on mechanical ventilator. On AC mode; RR 18, VT 550, PEEP 6 -->5, Fio2 30% Titrate FIO2 to keep O2 saturation above 90%. VAP bundle. Daily ABG and CXR while intubated Sedate for ventilator synchrony Continue antibiotics. Continue bronchodilators Pressors as necessary for hemodynamic support Titrate to keep mean arterial pressure greater than 65 mmHg. Diurese Monitor renal function Monitor electrolytes. Supplement as necessary. Monitor ins and outs. GI prophylaxis. DVT prophylaxis. Prognosis: Poor given patient's multiple co-morbidities. Condition: Critical Rest of plan per hospitalist and other consultants. A total of 35 minutes of critical care time was spent reviewing the patient record, examining the patient, making a diagnostic and therapeutic plan, discussing this plan with the medical personnel, following up on diagnostic studies and following the patient for clinical stability excluding any and all procedures. At least 50% of this time was spent in direct, [id number] contact. Thank you, NIDIA Caldera, for allowing me to participate in this patient's care. Further recommendations will depend on the patient's clinical course. Please do not hesitate to contact me if you have any questions or concerns. This medical document was created using an electronic medical record system with [employer] dictation system. Although these documentations are being carefully reviewed, there may still be some phonetic and typographical changes. The errors are purely typographical, due to imperfection on the software program, and do not reflect any compromise in the patient's medical care. Dietary Evaluation Review Comments: 1. Continue TPN to meet at least 75% estimated needs 2. Continue current POC Expected Outcomes/Goals: FU 2-3 days to meet adequate energy & protein within 7 days of NPO Protein Calorie Malnutrition: Severe (rn) Plan discussed with: Other (JASPER Ruiz) Critical Care Time(min): 35 CC Plasma Assessment Blood Product Administration S: [id number] ARIE LOPEZ MD Oct 20, 2024 19:43
[2024-10-21] VITALS (106 sets, daily range): BP systolic 85–168; BP diastolic 45–95; PULSE 89–135; RESP 16–35; TEMP 98.7–99.9; O2SAT 91–100
[2024-10-21 04:13] LABS: Calcium 9.1 mg/dL (8.7-10.4); Potassium 3.5 mmol/L (3.5-5.1)
[2024-10-21 04:14] LABS: Anion Gap 14 (5-15); Carbon Dioxide 28 mmol/L (20-31)
[2024-10-21 04:19] LABS: BUN/Creatinine Ratio 16.7 (10.0-20.0); Glucose 91 mg/dL (74-106)
[2024-10-21 04:23] LABS: Chloride 92 mmol/L (98-107); Sodium 134 mmol/L (136-145)
[2024-10-21 04:24] LABS: Blood Urea Nitrogen 82 mg/dL (9-23)
--- NOTE | 2024-10-21 05:23 | DVH ---
EXAM: XR Chest, 1 View CLINICAL INDICATION: pna TECHNIQUE: Frontal view of the chest. COMPARISON: XY CHEST PORTABLE on DOS: 10/20/24, XY CHEST PORTABLE on DOS: 10/19/24, XY CHEST PORTABLE o n DOS: 10/19/24, XY CHEST PORTABLE on DOS: 10/18/24, XY CHEST PORTABLE on DOS: 10/17/24 FINDINGS: LUNGS AND PLEURAL SPACES: Stable interstitial opacity and patchy airspace disease. No pneumothorax. . HEART: Unremarkable. No cardiomegaly. MEDIASTINUM: Unremarkable. Normal mediastinal contour. BONES/JOINTS: Unremarkable. No acute fracture. TUBES, LINES AND DEVICES: Right internal jugular central venous catheter tip in the superior vena c rosaline. Left internal jugular central venous catheter tip in the superior vena cava. The endotracheal tube (ETT) is in satisfactory position. Enteric tube tip cannot be seen but is below the diaphragm. Stable right-sided chest tube. OTHER FINDINGS: . . . . . IMPRESSION: No significant change from the prior exam.
[2024-10-21 07:01] LABS: Base Excess 7.2 mmol/L (-2.0-3.0)
[2024-10-21] MEDS: cefTRIAXone 1GM/50ML D5W 50 ML IV SCH (08:26)
--- NOTE | 2024-10-21 09:09 | DVHPN2 ---
Subjective Patient intubated and sedated Reviewed: Care Plan, H&P, Labs, Medications, Previous Orders, Radiology, Other (Consultants) Changes from previous H/P or p: No Changes General: Per HPI Objective Vitals Vital Signs Date Time Temp Pulse Resp B/P (MAP) Pulse Ox O2 Delivery O2 Flow Rate FiO2 10/21/24 08:05 103 18 120/64 (82) 99 30 10/21/24 06:00 Mechanical Ventilator+ 10/21/24 04:00 98.7 98.7 Intake/Output Intake and Output 10/21/24 07:00 Intake Total 1553.740 ml Output Total 4195 ml Balance -2641.260 ml Intake Oral 60 ml IV Total 1309.740 ml Tube Feeding 184 ml Output Urine Total 3760 ml Chest Tube Drainage Total 95 ml Drainage Total 75 ml Other 265 ml General Appearance: moderate distress, Other (Intubated and sedated) HEENT: Atraumatic, PERRLA Lungs: Other (Mechanical ventilation. Decreased breath sounds at bases) Cardiovascular: Regular rate, Normal S1, Normal S2, Other (Sinus rhythm) Abdomen: Other Neuro: Other (Unable to assess) Skin: Dry, Intact, Wounds, Other Psych/Mental Status: Other Medications Current Medications Medications Dose Ordered Sig/Wally Route Start Time Stop Time Status Last Admin Dose Admin Fentanyl Citrate 250 ml @ 2.5 mls/hr Q24H IV 10/04/24 09:45 10/21/24 02:00 25 MLS/HR Ondansetron HCl 4 mg Q4HP PRN IV 10/04/24 11:45 Morphine Sulfate 2 mg Q4HPRN PRN IV 10/04/24 11:45 Nitroglycerin 0.4 mg Q5MINP PRN SL 10/04/24 11:45 Morphine Sulfate 2 mg Q30M PRN IV 10/04/24 11:45 Lorazepam 50 mg/ Sodium Chloride 50 ml @ 1 mls/hr Q24H IV 10/04/24 18:15 Cancel Midazolam HCl 50 ml @ 1 mls/hr Q24H IV 10/04/24 18:30 10/21/24 08:28 5 MLS/HR Vasopressin 20 units/Sodium Chloride 100 ml @ 12 mls/hr Q8H20M IV 10/04/24 20:30 10/17/24 07:23 3 MLS/HR Acetaminophen 650 mg Q6HPRN PRN CO 10/04/24 21:00 10/11/24 15:19 650 MG Amino Acids 0 ml @ 0 mls/hr PER PHARMACY IV 10/05/24 14:30 UNV Diagnostic Test (Pha) 1 strip Q6HR 10/05/24 18:00 10/21/24 06:20 1 STRIP Insulin Human Regular FOLLOW SLIDING SCALE Q6HR SC 10/05/24 18:00 10/19/24 11:00 2 UNITS Dextrose 50 ml UD IV 10/05/24 14:45 Meropenem 50 ml @ 17 mls/hr Q12HR IV 10/07/24 10:00 UNV Labetalol HCl 10 mg Q2HPRN PRN IV 10/08/24 09:30 Propofol 100 ml @ 2.181 mls/ hr Q24H IV 10/10/24 10:30 10/19/24 18:02 4.3623 MLS/HR Pantoprazole Sodium 40 mg DAILY IV 10/12/24 10:00 10/20/24 10:55 40 MG Levalbuterol HCl 0.625 mg Q6HR NEB 10/13/24 12:00 10/21/24 06:15 0.625 MG Ipratropium [place] 0.5 mg Q6HR NEB 10/13/24 12:00 10/21/24 06:15 0.5 MG Norepinephrine Bitartrate 32 mg/ Sodium Chloride 250 ml @ 0.938 mls/ hr Q24H IV 10/14/24 10:15 10/20/24 09:29 0.938 MLS/HR Bumetanide 12.5 mg/Miscellaneous 50 ml @ 2 mls/hr Q24H IV 10/15/24 11:45 10/21/24 02:00 2 MLS/HR Enteral Nutritional Formula 1,000 ml 30ML/HR GT 10/19/24 12:00 Spironolactone 25 mg BIDD GT 10/19/24 18:00 10/21/24 06:00 25 MG Epoetin Roger-epbx 10,000 unit MWF SC 10/19/24 17:00 Hold 10/20/24 11:20 10,000 UNIT Ceftriaxone Sodium 50 ml @ 100 mls/hr DAILY@09 IV 10/21/24 09:00 10/21/24 08:26 100 MLS/HR Doxycycline Hyclate 100 ml @ 50 mls/hr Q12H IV 10/20/24 10:30 10/20/24 22:33 50 MLS/HR Enoxaparin Sodium 70 mg DAILY SC 10/21/24 10:00 Laboratory Results Laboratory Tests 10/20/24 03:23 10/21/24 03:05 Chemistry Test 10/21/24 03:05 Calcium Level 9.1 mg/dL (8.7-10.4) Urinalysis Test 10/05/24 15:05 10/11/24 18:00 Urine Color Light-yellow (Yellow) Urine Clarity Hazy (Clear) H Urine pH 5.5 (5.0-9.0) Urine Specific [place] 1.018 (1.001-1.035) Urine Protein 1+ (Negative) H Urine Ketones Negative (Negative) Urine Blood 3+ /uL (Negative) H Urine Nitrite Negative (Negative) Urine Bilirubin Negative (Negative) Urine Urobilinogen Normal mg/dL (Negative) Urine Leukocyte Esterase Negative /uL (Negative) Urine RBC 1 /hpf (0 - 3) Urine Microscopic WBC 9 /HPF (0-3) H Urine Squamous Epithelial Cells Few /hpf (<5) Urine Bacteria Few /hpf (None Seen) H Urine Mucus Few (None Seen) Urine Glucose Trace mg/dL (Normal) Urine Total Protein 85.0 mg/dL (1-14) H Urine Creatinine 48.05 mg/dL (30.0-125.0) Urine Sodium 76 mmol/L (40-220) Blood Gas Results Test 10/20/24 15:41 10/21/24 06:48 Arterial Blood pH 7.549 (7.350-7.450) 7.460 (7.350-7.450) FiO2 % 30.0 30.0 Microbiology Microbiology Date/Time Source Procedure Growth Status 10/18/24 09:21 Pleural Fluid Gram Stain - Final Resulted 10/18/24 09:21 Pleural Fluid Body Fluid Culture - Preliminary Resulted 10/16/24 12:05 Bronchial Washings Gram Stain - Final Complete 10/16/24 12:05 Bronchial Washings Respiratory Culture - Final Complete 10/13/24 21:30 Voided Urine Urine Culture - Final Complete 10/13/24 14:20 Blood Blood Culture - Final NO GROWTH AFTER 5 DAYS OF INCUBATION. Complete 10/04/24 17:10 Nose MRSA Screen - Final Complete Labs and/or images reviewed: Labs reviewed by me, Image(s) reviewed by me Assessment/Plan Assessment/Plan Impression: -severe septic shock -pneumoperitoneum secondary to perforated gastric ulcer -acute kidney injury, hemodynamically mediated, probable VMN -acute hypoxic respiratory failure -shock liver -nicotine dependence -history of CVA -right upper extremity DVT -multifocal pneumonia, probable Gram-positive/Gram-negative etiology -anemia secondary to nutrition, renal failure -bilateral pleural effusions Plan: Events: FiO2 30%. Peep of 5. Patient oxygenating well. Please attempt to wake up patient. Proceed with spontaneous breathing trial if appropriate. Norepinephrine at 2 micrograms/minute -continue tube feeding -amiodarone drip per protocol -wean vasopressors to keep map greater than 65 mmHg -Protonix 40 mg IV twice a day -further recommendations per surgical consultation -continue current sedation -continue Bumex drip. Nephrology recommendations appreciated -continue anticoagulation with Lovenox. -repeat labs, chest x-ray, ABG in a.m. -Discussed plan of care with . All questions answered. Critical care time spent with patient discussing and formulating plan of care: 90 minutes. This does not include time spent performing procedures. This medical document was created using an electronic medical record system with [employer] dictation system. Although this document has been carefully reviewed, there may still be some phonetic and typographical errors. These areas are purely typographical due to imperfections of the software programs, and do not reflect any compromise in the patient's medical care. Plan discussed with: Patient, Other (RN) My Orders Orders - CHEYENNE PIKE [employer] Procedure Category Date Status Time Ceftriaxone 1gm/50ml PHA 10/21/24 In Process D5w (Rocephin) 09:00 Doxycycline PHA 10/20/24 In Process 100mg/100ml 10:30 Ventilator Orders RT 10/20/24 Transmitted 10:18 Chest Portable XY 10/21/24 Resulted 04:00 Abg W/ Co-Ox RT 10/21/24 Logged 04:00 Enoxaparin Sodium PHA 10/21/24 In Process (Lovenox) 10:00 Ventilator Orders RT 10/20/24 Transmitted 11:41 Abg W/ Co-Ox RT 10/20/24 Logged 15:25 Date of Service: Oct 21, 2024 Billing Provider: CHEYENNE PIKE NP Common Visit Codes: 55667-[id number] CARE 30-74 MIN CHEYENNE PIKE NP Oct 21, 2024 09:09
[2024-10-21] MEDS: ENOXAPARIN SOD 80 MG/0.8ML SYRINGE SC SCH (10:27)
[2024-10-21] MEDS ORDERED: MORPHINE SULFATE 4 MG/ML SYR/VIAL IV PRN (11:30)
--- NOTE | 2024-10-21 14:24 | DVHPN2 ---
Progress Note Date Seen: Oct 21, 2024 Resident Creating Document: SKY DASH RESIDENT Has the PT tested + for MRSA If YES, has PT been informed?: No Medical Necessity Reason Pt with a Central, PICC or Fol: Yes The following are medically ne: Central Line, Gómez Catheter Reason for gómez catheter: Strict I&O Subjective Review of Systems The patient was seen and examined on the bedside. He is on mechanical ventilation with FiO2 30%, tidal volume 550, peep 5 and respiratory rate 18. Patient is scheduled for CPAP trial today. Review of Systems: RESPIRATORY:Abnormal Other Systems: Patient seen and examined by myself today in follow-up with the medicine resident, I agree with her assessment and plan, patient remained intubatedon ventilator Patient examined hemodialysis, blood pressure stable Objective vital signs Vital Sign Date Time Temp Pulse Resp B/P (MAP) Pulse Ox O2 Delivery O2 Flow Rate FiO2 10/21/24 14:00 123 10/21/24 13:54 19 117/64 (81) 100 30 10/21/24 12:00 Mechanical Ventilator+ 10/21/24 08:00 99.1 99.1 Total Intake and Output 10/20/24 10/20/24 10/21/24 15:00 23:00 07:00 Intake Total 553.815 ml 575.125 ml 424.8 ml Output Total 1645 ml 2550 ml Balance 553.815 ml -1069.875 ml -2125.2 ml medications Current Medications Medications Dose Ordered Sig/Wally Route Start Time Stop Time Status Last Admin Dose Admin Fentanyl Citrate 250 ml @ 2.5 mls/hr Q24H IV 10/04/24 09:45 10/21/24 02:00 25 MLS/HR Ondansetron HCl 4 mg Q4HP PRN IV 10/04/24 11:45 Morphine Sulfate 2 mg Q4HPRN PRN IV 10/04/24 11:45 Cancel Nitroglycerin 0.4 mg Q5MINP PRN SL 10/04/24 11:45 Morphine Sulfate 2 mg Q30M PRN IV 10/04/24 11:45 Cancel Lorazepam 50 mg/ Sodium Chloride 50 ml @ 1 mls/hr Q24H IV 10/04/24 18:15 Cancel Midazolam HCl 50 ml @ 1 mls/hr Q24H IV 10/04/24 18:30 10/21/24 08:28 5 MLS/HR Vasopressin 20 units/Sodium Chloride 100 ml @ 12 mls/hr Q8H20M IV 10/04/24 20:30 10/17/24 07:23 3 MLS/HR Acetaminophen 650 mg Q6HPRN PRN MO 10/04/24 21:00 10/11/24 15:19 650 MG Amino Acids 0 ml @ 0 mls/hr PER PHARMACY IV 10/05/24 14:30 UNV Diagnostic Test (Pha) 1 strip Q6HR 10/05/24 18:00 10/21/24 11:19 1 STRIP Insulin Human Regular FOLLOW SLIDING SCALE Q6HR SC 10/05/24 18:00 10/19/24 11:00 2 UNITS Dextrose 50 ml UD IV 10/05/24 14:45 Meropenem 50 ml @ 17 mls/hr Q12HR IV 10/07/24 10:00 UNV Labetalol HCl 10 mg Q2HPRN PRN IV 10/08/24 09:30 Propofol 100 ml @ 2.181 mls/ hr Q24H IV 10/10/24 10:30 10/19/24 18:02 4.3623 MLS/HR Pantoprazole Sodium 40 mg DAILY IV 10/12/24 10:00 10/21/24 10:26 40 MG Levalbuterol HCl 0.625 mg Q6HR NEB 10/13/24 12:00 10/21/24 11:02 0.625 MG Ipratropium [place] 0.5 mg Q6HR NEB 10/13/24 12:00 10/21/24 11:02 0.5 MG Norepinephrine Bitartrate 32 mg/ Sodium Chloride 250 ml @ 0.938 mls/ hr Q24H IV 10/14/24 10:15 10/20/24 09:29 0.938 MLS/HR Enteral Nutritional Formula 1,000 ml 30ML/HR GT 10/19/24 12:00 Epoetin Roger-epbx 10,000 unit MWF SC 10/19/24 17:00 Hold 10/20/24 11:20 10,000 UNIT Ceftriaxone Sodium 50 ml @ 100 mls/hr DAILY@09 IV 10/21/24 09:00 10/21/24 08:26 100 MLS/HR Doxycycline Hyclate 100 ml @ 50 mls/hr Q12H IV 10/20/24 10:30 10/21/24 10:27 50 MLS/HR Enoxaparin Sodium 70 mg DAILY SC 10/21/24 10:00 10/21/24 10:27 70 MG Metoclopramide HCl 10 mg Q8HR GT 10/21/24 14:00 Bumetanide 1 mg DAILY IV 10/22/24 10:00 Potassium Chloride 100 ml @ 50 mls/hr Q2H IV 10/21/24 11:15 10/21/24 15:14 Morphine Sulfate 2 mg Q4HPRN PRN IV 10/21/24 11:30 Morphine Sulfate 2 mg Q30M PRN IV 10/21/24 11:30 Examination General: RASS -3, afebrile, mucosae are moist Cardiovascular: Normal S1 and S2. No murmurs, gallops or rubs Respiratory: Mechanically assisted ventilation, equal bilateral airway entree. Clear lung sounds on auscultation Abdomen: Soft, nontender, no organomegaly, normal bowel sounds MSK/skin: Mobilization of limbs cannot be evaluated. Skin is dry and warm. Neurological: Orientation cannot be assessed. No apparent motor no sensitive deficits. Pupils are isocoric and reactive Examination: LUNGS:Normal, CVS:Normal, MSK:Normal laboratory and microbiology Laboratory Tests 10/21/24 03:05 10/20/24 03:23 Test 10/21/24 03:05 Range/Units Serum Glucose 91 74-106 mg/dL Microbiology Date/Time Source Procedure Growth Status 10/18/24 09:21 Pleural Fluid Gram Stain - Final Resulted 10/18/24 09:21 Pleural Fluid Body Fluid Culture - Preliminary Resulted 10/16/24 12:05 Bronchial Washings Gram Stain - Final Complete 10/16/24 12:05 Bronchial Washings Respiratory Culture - Final Complete 10/13/24 21:30 Voided Urine Urine Culture - Final Complete 10/13/24 14:20 Blood Blood Culture - Final NO GROWTH AFTER 5 DAYS OF INCUBATION. Complete 10/04/24 17:10 Nose MRSA Screen - Final Complete Labs and/or images reviewed: Labs reviewed by me, Image(s) reviewed by me Problem List/Assessment/Plan Problem List/Assessment/Plan Assessment/Plan Acute kidney injury likely ATN, FeNa ,> 2% requiring intermittent hemodialysis Acute respiratory failure, patient intubated on ventilator Hemodynamic shock acute blood loss anemia Perforated gastric ulcer status post surgery 10/04 Hyponatremia likely due to volume overload Pneumonia Sepsis Hypomagnesemia Empyema status post right chest tube Acute blood loss anemia status post PRBC Recommendations Continue with UF to 3 L as tolerated Epogen 26776 subQ 3 times weekly Gómez catheter Strict I&Os Increased Urine output and have negative balance Discontinue Bunex drip IV Bumex 1 mg daily IV albumin 25%, 100 cc during dialysis Vasopressor as needed for dialysis support Fluid restrictions KCL replaced IV antibiotic Electrolytes replacement We will continue to follow up Plan discussed with Dr. Beauchamp Plan discussed with: Other (RN) Dietary Evaluation Review Comments: 1. Continue TPN to meet at least 75% estimated needs 2. Continue current POC Expected Outcomes/Goals: FU 2-3 days to meet adequate energy & protein within 7 days of NPO Protein Calorie Malnutrition: Severe (rn) CC Plasma Assessment Blood Product Administration S: [id number] SKY DASH Oct 21, 2024 14:24 MILADY BEAUCHAMP MD Oct 21, 2024 14:43
[2024-10-21] MEDS: METOCLOPRAMIDE 10 mg/10ml ORAL soln GT SCH (14:51)
[2024-10-21] MEDS: ALBUMIN 25% 50 ML IV ONE ×4 (14:53→14:55)
[2024-10-21] MEDS: SODIUM CHL 0.9% 1000 ML BAG XX ONE (16:00)
[2024-10-21] MEDS: POTASSIUM CHL 20MEQ/100ML 100 ML IV SCH (17:22)
[2024-10-21] MEDS: POTASSIUM CHL 20MEQ/100ML 100 ML IV ONE (17:23)
[2024-10-21] MEDS: EPOETIN ALFA-EPBX 10,000 UNIT/1ML VIAL SC ONE (21:13)
--- NOTE | 2024-10-21 23:13 | DVHPN2 ---
Progress Note - Dictate Date Seen: Oct 21, 2024 Has the PT tested + for MRSA If YES, has PT been informed?: No Medical Necessity Reason Pt with a Central, PICC or Fol: Yes The following are medically ne: Central Line, Gómez Catheter Reason for gómez catheter: Strict I&O Subjective Patient seen and examined at bedside. Sedated, intubated on mechanical ventilator. Overnight events reviewed. vital signs Vital Sign Date Time Temp Pulse Resp B/P (MAP) Pulse Ox O2 Delivery O2 Flow Rate FiO2 10/21/24 22:35 107 18 111/59 (76) 99 30 10/21/24 18:00 Mechanical Ventilator+ 10/21/24 16:00 99.3 99.3 Total Intake and Output 10/20/24 10/20/24 10/21/24 15:00 23:00 07:00 Intake Total 553.815 ml 575.125 ml 457.238 ml Output Total 1645 ml 2550 ml Balance 553.815 ml -1069.875 ml -2092.762 ml medications Current Medications Medications Dose Ordered Sig/Wally Route Start Time Stop Time Status Last Admin Dose Admin Fentanyl Citrate 250 ml @ 2.5 mls/hr Q24H IV 10/04/24 09:45 10/21/24 14:50 20 MLS/HR Ondansetron HCl 4 mg Q4HP PRN IV 10/04/24 11:45 Morphine Sulfate 2 mg Q4HPRN PRN IV 10/04/24 11:45 Cancel Nitroglycerin 0.4 mg Q5MINP PRN SL 10/04/24 11:45 Morphine Sulfate 2 mg Q30M PRN IV 10/04/24 11:45 Cancel Lorazepam 50 mg/ Sodium Chloride 50 ml @ 1 mls/hr Q24H IV 10/04/24 18:15 Cancel Midazolam HCl 50 ml @ 1 mls/hr Q24H IV 10/04/24 18:30 10/21/24 08:28 5 MLS/HR Vasopressin 20 units/Sodium Chloride 100 ml @ 12 mls/hr Q8H20M IV 10/04/24 20:30 10/17/24 07:23 3 MLS/HR Acetaminophen 650 mg Q6HPRN PRN [place] 10/04/24 21:00 10/11/24 15:19 650 MG Amino Acids 0 ml @ 0 mls/hr PER PHARMACY IV 10/05/24 14:30 UNV Diagnostic Test (Pha) 1 strip Q6HR 10/05/24 18:00 10/21/24 18:00 1 STRIP Insulin Human Regular FOLLOW SLIDING SCALE Q6HR SC 10/05/24 18:00 10/19/24 11:00 2 UNITS Dextrose 50 ml UD IV 10/05/24 14:45 Meropenem 50 ml @ 17 mls/hr Q12HR IV 10/07/24 10:00 UNV Labetalol HCl 10 mg Q2HPRN PRN IV 10/08/24 09:30 Propofol 100 ml @ 2.181 mls/ hr Q24H IV 10/10/24 10:30 10/19/24 18:02 4.3623 MLS/HR Pantoprazole Sodium 40 mg DAILY IV 10/12/24 10:00 10/21/24 10:26 40 MG Levalbuterol HCl 0.625 mg Q6HR NEB 10/13/24 12:00 10/21/24 19:08 0.625 MG Ipratropium [place] 0.5 mg Q6HR NEB 10/13/24 12:00 10/21/24 19:08 0.5 MG Norepinephrine Bitartrate 32 mg/ Sodium Chloride 250 ml @ 0.938 mls/ hr Q24H IV 10/14/24 10:15 10/21/24 14:56 0.938 MLS/HR Enteral Nutritional Formula 1,000 ml 30ML/HR GT 10/19/24 12:00 Epoetin Roger-epbx 10,000 unit MWF ID 10/19/24 17:00 Hold 10/20/24 11:20 10,000 UNIT Ceftriaxone Sodium 50 ml @ 100 mls/hr DAILY@09 IV 10/21/24 09:00 10/21/24 08:26 100 MLS/HR Doxycycline Hyclate 100 ml @ 50 mls/hr Q12H IV 10/20/24 10:30 10/21/24 10:27 50 MLS/HR Enoxaparin Sodium 70 mg DAILY SC 10/21/24 10:00 10/21/24 10:27 70 MG Bumetanide 1 mg DAILY IV 10/22/24 10:00 Morphine Sulfate 2 mg Q4HPRN PRN IV 10/21/24 11:30 Morphine Sulfate 2 mg Q30M PRN IV 10/21/24 11:30 Metoclopramide HCl 10 mg DAILY GT 10/22/24 10:00 objective Gen.: Patient lying in bed in medical ICU. Sedated, intubated on mechanical ventilator. Head: Normocephalic, atraumatic. Eyes: PERRLA. Ears: Normal external anatomy. Throat: Endotracheal tube and orogastric tube in place. Neck: Supple, trachea midline. Chest: Transmitted breath sounds bilaterally. Decreased air entry bilaterally. No wheezing. Bibasilar crackles. Cardiovascular: Positive S1, positive S2. Regular rate and rhythm. Abdomen: Positive bowel sounds in all 4 quadrants. Soft, nontender, nondistended. : Gómez in place. Normal external genitalia. Rectal: Deferred. Skin: Warm, dry. Intact. Extremities: 2+ radial pulses bilaterally. No lower extremity edema. Neuro: Sedated. laboratory and microbiology Laboratory Tests 10/21/24 21:55 10/21/24 03:05 10/20/24 03:23 Test 10/21/24 03:05 Range/Units Serum Glucose 91 74-106 mg/dL Assessment/Plan Impression: Acute hypoxic respiratory failure On mechanical ventilator Septic shock Perforated viscus Nicotine dependence Events: Remains on vent support On AC mode; RR 18, VT 550, PEEP 5, Fio2 30% Sedated on Versed/Fentanyl. ABG notable for alkalemia CXR reviewed, demonstrates devices in place. Stable interstitial opacity and patchy airspace disease. No pneumothorax. Right chest tube in place. On pressors for hemodynamic support Levophed 2 mcg/min Titrate to keep mean arterial pressure greater than 65 mmHg. Improved pressor requirements Chest tube in place Monitor output - 90 mL serous No air leak Bumex drip for diuresis. Monitor renal function Monitor electrolytes. Supplement as necessary. Monitor ins and outs. Continue antibiotics. Continue bronchodilators Tube feeds for nutritional support Monitor hemoglobin Monitor KWAN + trish drain output Protonix for GI prophylaxis Therapeutic Lovenox for DVT prophylaxis CTA bilat pl effusion ?empyema George catheter was placed on 10/19/[address] Astorga For details of procedure see separate note Chest tube management Continuous wall suction Labs and imaging reviewed. Rest of plan as noted below. Plan: s/p intubation on mechanical ventilator. On AC mode; RR 18, VT 550, PEEP 5, Fio2 30% Titrate FIO2 to keep O2 saturation above 90%. VAP bundle. Daily ABG and CXR while intubated Sedate for ventilator synchrony Continue antibiotics. Continue bronchodilators Pressors as necessary for hemodynamic support Titrate to keep mean arterial pressure greater than 65 mmHg. Diurese Monitor renal function Monitor electrolytes. Supplement as necessary. Monitor ins and outs. GI prophylaxis. DVT prophylaxis. Prognosis: Poor given patient's multiple co-morbidities. Condition: Critical Rest of plan per hospitalist and other consultants. A total of 35 minutes of critical care time was spent reviewing the patient record, examining the patient, making a diagnostic and therapeutic plan, discussing this plan with the medical personnel, following up on diagnostic studies and following the patient for clinical stability excluding any and all procedures. At least 50% of this time was spent in direct, [id number] contact. Thank you, NIDIA Caldera, for allowing me to participate in this patient's care. Further recommendations will depend on the patient's clinical course. Please do not hesitate to contact me if you have any questions or concerns. This medical document was created using an electronic medical record system with [employer] dictation system. Although these documentations are being carefully reviewed, there may still be some phonetic and typographical changes. The errors are purely typographical, due to imperfection on the software program, and do not reflect any compromise in the patient's medical care. Dietary Evaluation Review Comments: 1. Continue TPN to meet at least 75% estimated needs 2. Continue current POC Expected Outcomes/Goals: FU 2-3 days to meet adequate energy & protein within 7 days of NPO Protein Calorie Malnutrition: Severe (rn) Plan discussed with: Other (JASPER Ruiz) Critical Care Time(min): 35 CC Plasma Assessment Blood Product Administration S: [id number] ARIE LOPEZ MD Oct 21, 2024 23:13
[2024-10-22] VITALS (107 sets, daily range): BP systolic 93–187; BP diastolic 53–97; PULSE 92–133; RESP 15–28; TEMP 99.3–101.3; O2SAT 95–100
--- NOTE | 2024-10-22 03:05 | DVH ---
CHEST RADIOGRAPH Indication: Intubated, Tubes and line placement verification Technique: Single frontal view of the chest was obtained Comparison: XY CHEST PORTABLE on DOS: 10/21/24, XY CHEST PORTABLE on DOS: 10/20/24, XY CHEST PORTABLE on DOS: 10/19/24 IMPRESSION: Endotracheal tube, enteric tube, and right and left venous catheters appear unchanged in satisfactory position. Mild pulmonary vascular congestion, mildly improved. Small bilateral pleural effusions. P atchy airspace opacity in the right mid lung. Right pleural catheter. No pneumothorax.
[2024-10-22 03:40] LABS: Hemoglobin 8.0 g/dL (13.5-17.5)
[2024-10-22 03:42] LABS: Hematocrit 23.0 % (41.0-53.0); Mean Corpuscular Hemoglobin 29.0 pg (28.0-32.0); Mean Corpuscular Volume 83.8 fL (80.0-100.0)
[2024-10-22 03:49] LABS: Anion Gap 13 (5-15); BUN/Creatinine Ratio 14.8 (10.0-20.0); Calcium 9.5 mg/dL (8.7-10.4); Carbon Dioxide 28 mmol/L (20-31); Glucose 98 mg/dL (74-106); Magnesium 2.1 mg/dL (1.6-2.6); Potassium 3.8 mmol/L (3.5-5.1); Sodium 137 mmol/L (136-145); Total Protein 7.4 g/dL (5.7-8.2)
[2024-10-22 03:50] LABS: Albumin 3.8 g/dL (3.2-4.8)
[2024-10-22 04:13] LABS: Alanine Aminotransferase 58 U/L (7-40); Alkaline Phosphatase 247 U/L (46-116); Bilirubin, Total 4.8 mg/dL (0.2-1.0); Blood Urea Nitrogen 56 mg/dL (9-23); Chloride 96 mmol/L (98-107)
[2024-10-22 05:25] LABS: Stomatocytes Moderate; Total Cells Counted 100.0 (100)
[2024-10-22 07:41] LABS: Base Excess 3.9 mmol/L (-2.0-3.0)
[2024-10-22] MEDS: NICARDIPINE HCL IN SODIUM CHLO 200 ML IV SCH (08:47)
--- NOTE | 2024-10-22 08:57 | DVHPN2 ---
Subjective Patient intubated and sedated Reviewed: Care Plan, H&P, Labs, Medications, Previous Orders, Radiology, Other (Consultants) Changes from previous H/P or p: No Changes General: Per HPI Objective Vitals Vital Signs Date Time Temp Pulse Resp B/P (MAP) Pulse Ox O2 Delivery O2 Flow Rate FiO2 10/22/24 08:47 168/93 10/22/24 07:47 120 19 98 30 10/22/24 06:00 Mechanical Ventilator+ 10/22/24 04:00 99.3 99.3 Intake/Output Intake and Output 10/22/24 07:00 Intake Total 920.877 ml Output Total 2705 ml Balance -1784.123 ml Intake Oral 106 ml IV Total 730.877 ml Tube Feeding 84 ml Output Urine Total 2525 ml Chest Tube Drainage Total 20 ml Drainage Total 90 ml Other 70 ml General Appearance: moderate distress, Other (Intubated and sedated) HEENT: Atraumatic, PERRLA Lungs: Other (Mechanical ventilation. Decreased breath sounds at bases) Cardiovascular: Regular rate, Normal S1, Normal S2, Other (Sinus rhythm) Abdomen: Other Neuro: Other (Unable to assess) Skin: Dry, Intact, Wounds, Other Psych/Mental Status: Other Medications Current Medications Medications Dose Ordered Sig/Wally Route Start Time Stop Time Status Last Admin Dose Admin Fentanyl Citrate 250 ml @ 2.5 mls/hr Q24H IV 10/04/24 09:45 10/22/24 00:32 22.5 MLS/HR Ondansetron HCl 4 mg Q4HP PRN IV 10/04/24 11:45 Morphine Sulfate 2 mg Q4HPRN PRN IV 10/04/24 11:45 Cancel Nitroglycerin 0.4 mg Q5MINP PRN SL 10/04/24 11:45 Morphine Sulfate 2 mg Q30M PRN IV 10/04/24 11:45 Cancel Lorazepam 50 mg/ Sodium Chloride 50 ml @ 1 mls/hr Q24H IV 10/04/24 18:15 Cancel Midazolam HCl 50 ml @ 1 mls/hr Q24H IV 10/04/24 18:30 10/22/24 00:31 6 MLS/HR Acetaminophen 650 mg Q6HPRN PRN CA 10/04/24 21:00 10/11/24 15:19 650 MG Amino Acids 0 ml @ 0 mls/hr PER PHARMACY IV 10/05/24 14:30 UNV Diagnostic Test (Pha) 1 strip Q6HR 10/05/24 18:00 10/22/24 05:53 1 STRIP Insulin Human Regular FOLLOW SLIDING SCALE Q6HR SC 10/05/24 18:00 10/19/24 11:00 2 UNITS Dextrose 50 ml UD IV 10/05/24 14:45 Meropenem 50 ml @ 17 mls/hr Q12HR IV 10/07/24 10:00 UNV Labetalol HCl 10 mg Q2HPRN PRN IV 10/08/24 09:30 Propofol 100 ml @ 2.181 mls/ hr Q24H IV 10/10/24 10:30 10/19/24 18:02 4.3623 MLS/HR Pantoprazole Sodium 40 mg DAILY IV 10/12/24 10:00 10/21/24 10:26 40 MG Levalbuterol HCl 0.625 mg Q6HR NEB 10/13/24 12:00 10/22/24 06:31 0.625 MG Ipratropium [place] 0.5 mg Q6HR NEB 10/13/24 12:00 10/22/24 06:31 0.5 MG Norepinephrine Bitartrate 32 mg/ Sodium Chloride 250 ml @ 0.938 mls/ hr Q24H IV 10/14/24 10:15 10/21/24 14:56 0.938 MLS/HR Enteral Nutritional Formula 1,000 ml 30ML/HR GT 10/19/24 12:00 Epoetin Roger-epbx 10,000 unit MWF [place] 10/19/24 17:00 Hold 10/20/24 11:20 10,000 UNIT Ceftriaxone Sodium 50 ml @ 100 mls/hr DAILY@09 IV 10/21/24 09:00 10/21/24 08:26 100 MLS/HR Doxycycline Hyclate 100 ml @ 50 mls/hr Q12H IV 10/20/24 10:30 10/22/24 00:30 50 MLS/HR Enoxaparin Sodium 70 mg DAILY SC 10/21/24 10:00 10/21/24 10:27 70 MG Bumetanide 1 mg DAILY IV 10/22/24 10:00 Morphine Sulfate 2 mg Q4HPRN PRN IV 10/21/24 11:30 Morphine Sulfate 2 mg Q30M PRN IV 10/21/24 11:30 Metoclopramide HCl 10 mg DAILY GT 10/22/24 10:00 Nicardipine/ Sodium Chloride 200 ml @ 50 mls/hr Q4H IV 10/22/24 08:45 10/22/24 08:47 50 MLS/HR Metoprolol Tartrate 25 mg BID PO 10/22/24 10:00 Laboratory Results Laboratory Tests 10/22/24 03:00 Chemistry Test 10/22/24 03:00 Albumin 3.8 g/dL (3.2-4.8) Calcium Level 9.5 mg/dL (8.7-10.4) Magnesium Level 2.1 mg/dL (1.6-2.6) Total Protein 7.4 g/dL (5.7-8.2) LFT Test 10/22/24 03:00 Alanine Aminotransferase (ALT) 58 U/L (7-40) H Alkaline Phosphatase 247 U/L (46-116) H Aspartate Amino Transferase (AST) 110 U/L (13-40) H Total Bilirubin 4.8 mg/dL (0.2-1.0) H Urinalysis Test 10/05/24 15:05 10/11/24 18:00 Urine Color Light-yellow (Yellow) Urine Clarity Hazy (Clear) H Urine pH 5.5 (5.0-9.0) Urine Specific [place] 1.018 (1.001-1.035) Urine Protein 1+ (Negative) H Urine Ketones Negative (Negative) Urine Blood 3+ /uL (Negative) H Urine Nitrite Negative (Negative) Urine Bilirubin Negative (Negative) Urine Urobilinogen Normal mg/dL (Negative) Urine Leukocyte Esterase Negative /uL (Negative) Urine RBC 1 /hpf (0 - 3) Urine Microscopic WBC 9 /HPF (0-3) H Urine Squamous Epithelial Cells Few /hpf (<5) Urine Bacteria Few /hpf (None Seen) H Urine Mucus Few (None Seen) Urine Glucose Trace mg/dL (Normal) Urine Total Protein 85.0 mg/dL (1-14) H Urine Creatinine 48.05 mg/dL (30.0-125.0) Urine Sodium 76 mmol/L (40-220) Blood Gas Results Test 10/22/24 07:34 Arterial Blood pH 7.489 (7.350-7.450) FiO2 % 30.0 Microbiology Microbiology Date/Time Source Procedure Growth Status 10/18/24 09:21 Pleural Fluid Gram Stain - Final Resulted 10/18/24 09:21 Pleural Fluid Body Fluid Culture - Preliminary Resulted 10/16/24 12:05 Bronchial Washings Gram Stain - Final Complete 10/16/24 12:05 Bronchial Washings Respiratory Culture - Final Complete 10/13/24 21:30 Voided Urine Urine Culture - Final Complete 10/13/24 14:20 Blood Blood Culture - Final NO GROWTH AFTER 5 DAYS OF INCUBATION. Complete 10/04/24 17:10 Nose MRSA Screen - Final Complete Labs and/or images reviewed: Labs reviewed by me, Image(s) reviewed by me Assessment/Plan Assessment/Plan Impression: -severe septic shock -pneumoperitoneum secondary to perforated gastric ulcer -acute kidney injury, hemodynamically mediated, probable VMN -acute hypoxic respiratory failure -shock liver -nicotine dependence -history of CVA -right upper extremity DVT -multifocal pneumonia, probable Gram-positive/Gram-negative etiology -anemia secondary to nutrition, renal failure -bilateral pleural effusions Plan: Events: Patient continues to be on Versed and fentanyl despite attempting to assess patient's neurological status. Patient's bowels are working, positive BMs. Continues to be on trickle feeding at 10 mL/hour. Febrile, hypertensive. We will continue to attempt to wean patient's sedation for possible spontaneous breathing trial. -start nicardipine drip for systolic blood pressure greater than 160 mmHg. Start metoprolol tartrate 25 mg via G-tube. -continue tube feeding -continue current antibiotics. -Protonix 40 mg IV twice a day -further recommendations per surgical consultation -continue current sedation -continue Bumex drip. Nephrology recommendations appreciated -continue anticoagulation with Lovenox. -repeat labs, chest x-ray, ABG in a.m. -Discussed plan of care with . All questions answered. Critical care time spent with patient discussing and formulating plan of care: 90 minutes. This does not include time spent performing procedures. This medical document was created using an electronic medical record system with [employer] ([employer])ation system. Although this document has been carefully reviewed, there may still be some phonetic and typographical errors. These areas are purely typographical due to imperfections of the software programs, and do not reflect any compromise in the patient's medical care. Plan discussed with: Patient, Other (RN) My Orders Orders - CHEYENNE PIKE [employer] WORKER Procedure Category Date Status Time Complete Blood Count LAB 10/23/24 Verified 05:00 Complete Blood Count LAB 10/24/24 Verified 05:00 Comprehensive LAB 10/23/24 Verified Metabolic Panel 05:00 Comprehensive LAB 10/24/24 Verified Metabolic Panel 05:00 Cpap/Sed Vacation Med ORDERS 10/21/24 Transmitted Weaning 09:05 Cpap Trial For Am ORDERS 10/21/24 Transmitted 09:05 Metoclopramide Oral PHA 10/22/24 In Process Soln (Reglan Oral So 10:00 Chest Portable XY 10/22/24 Resulted 04:00 Abg W/ Co-Ox RT 10/22/24 Logged 06:00 Cpap/Sed Vacation Med ORDERS 10/22/24 Transmitted Weaning 07:15 Cpap Trial For Am ORDERS 10/22/24 Transmitted 07:15 Nicardipine Hcl In PHA 10/22/24 In Process Sodium Chlo (Cardene 08:45 Metoprolol Tartrate PHA 10/22/24 In Process Tablet (Lopressor Ta 10:00 Acetaminophen PHA 10/22/24 Verified Solution Oral 09:00 Date of Service: Oct 22, 2024 Billing Provider: CHEYENNE PIKE NP Common Visit Codes: [id number] CARE 30-74 MIN CHEYENNE PIKE NP Oct 22, 2024 08:57
[2024-10-22] MEDS: ACETAMINOPHEN 650 mg PER 20.3 mL UD GT PRN (09:40)
[2024-10-22] MEDS: BUMETANIDE 1mg/4ml VIAL (0.25mg/ml) IV SCH (10:31)
[2024-10-22 11:07] LABS: Glucose, Body Fluid 74.0 mg/dL (.); LD, Body Fluid 881.0 IU/L (.)
[2024-10-22] MEDS: METOCLOPRAMIDE 10 mg/10ml ORAL soln GT SCH (11:11)
[2024-10-22] MEDS: METOPROLOL TARTRATE 25 MG TAB PO SCH (12:34)
--- NOTE | 2024-10-22 12:52 | DVHPNRES ---
Progress Note Date Seen: Oct 22, 2024 Resident Creating Document: SKY DASH RESIDENT Has the PT tested + for MRSA If YES, has PT been informed?: No Medical Necessity Reason Pt with a Central, PICC or Fol: Yes The following are medically ne: Central Line, Gómez Catheter Reason for gómez catheter: Strict I&O Subjective Review of Systems The patient was seen and examined on the bedside. He is on mechanical ventilation with FiO2 30%, tidal volume 550, peep 5 and respiratory rate 18. Having low grade fever, patient is on Precedex and nicardipine drip for control of agitation and blood pressure .Patient is scheduled for CPAP trial today. Review of Systems: RESPIRATORY:Abnormal Other Systems: Patient seen and examined by myself today on rounds with the medicine resident, I agree with the assessment and plan Patient remained intubated on ventilator Objective vital signs Vital Sign Date Time Temp Pulse Resp B/P (MAP) Pulse Ox O2 Delivery O2 Flow Rate FiO2 10/22/24 12:34 120 125/70 10/22/24 11:35 21 100 30 10/22/24 10:00 Mechanical Ventilator+ 10/22/24 09:40 101.1 Total Intake and Output 10/21/24 10/21/24 10/22/24 15:00 23:00 07:00 Intake Total 254.627 ml 381.750 ml 284.5 ml Output Total 1695 ml 1010 ml Balance 254.627 ml -1313.250 ml -725.5 ml medications Current Medications Medications Dose Ordered Sig/Wally Route Start Time Stop Time Status Last Admin Dose Admin Fentanyl Citrate 250 ml @ 2.5 mls/hr Q24H IV 10/04/24 09:45 10/22/24 00:32 22.5 MLS/HR Ondansetron HCl 4 mg Q4HP PRN IV 10/04/24 11:45 Morphine Sulfate 2 mg Q4HPRN PRN IV 10/04/24 11:45 Cancel Nitroglycerin 0.4 mg Q5MINP PRN SL 10/04/24 11:45 Morphine Sulfate 2 mg Q30M PRN IV 10/04/24 11:45 Cancel Lorazepam 50 mg/ Sodium Chloride 50 ml @ 1 mls/hr Q24H IV 10/04/24 18:15 Cancel Midazolam HCl 50 ml @ 1 mls/hr Q24H IV 10/04/24 18:30 10/22/24 00:31 6 MLS/HR Amino Acids 0 ml @ 0 mls/hr PER PHARMACY IV 10/05/24 14:30 UNV Diagnostic Test (Pha) 1 strip Q6HR 10/05/24 18:00 10/22/24 12:35 1 STRIP Insulin Human Regular FOLLOW SLIDING SCALE Q6HR SC 10/05/24 18:00 10/19/24 11:00 2 UNITS Dextrose 50 ml UD IV 10/05/24 14:45 Meropenem 50 ml @ 17 mls/hr Q12HR IV 10/07/24 10:00 UNV Labetalol HCl 10 mg Q2HPRN PRN IV 10/08/24 09:30 Propofol 100 ml @ 2.181 mls/ hr Q24H IV 10/10/24 10:30 10/19/24 18:02 4.3623 MLS/HR Pantoprazole Sodium 40 mg DAILY IV 10/12/24 10:00 10/22/24 10:30 40 MG Levalbuterol HCl 0.625 mg Q6HR NEB 10/13/24 12:00 10/22/24 11:35 0.625 MG Ipratropium [place] 0.5 mg Q6HR NEB 10/13/24 12:00 10/22/24 11:35 0.5 MG Norepinephrine Bitartrate 32 mg/ Sodium Chloride 250 ml @ 0.938 mls/ hr Q24H IV 10/14/24 10:15 10/21/24 14:56 0.938 MLS/HR Enteral Nutritional Formula 1,000 ml 30ML/HR GT 10/19/24 12:00 Epoetin Roger-epbx 10,000 unit MWF [place] 10/19/24 17:00 10/22/24 10:33 10,000 UNIT Ceftriaxone Sodium 50 ml @ 100 mls/hr DAILY@09 IV 10/21/24 09:00 10/22/24 09:10 100 MLS/HR Doxycycline Hyclate 100 ml @ 50 mls/hr Q12H IV 10/20/24 10:30 10/22/24 10:32 50 MLS/HR Enoxaparin Sodium 70 mg DAILY SC 10/21/24 10:00 10/22/24 10:32 70 MG Bumetanide 1 mg DAILY IV 10/22/24 10:00 10/22/24 10:31 1 MG Morphine Sulfate 2 mg Q4HPRN PRN IV 10/21/24 11:30 Morphine Sulfate 2 mg Q30M PRN IV 10/21/24 11:30 Metoclopramide HCl 10 mg DAILY GT 10/22/24 10:00 10/22/24 11:11 10 MG Nicardipine/ Sodium Chloride 200 ml @ 50 mls/hr Q4H IV 10/22/24 08:45 10/22/24 08:47 50 MLS/HR Metoprolol Tartrate 25 mg BID PO 10/22/24 10:00 10/22/24 12:34 25 MG Acetaminophen 650 mg Q6HP PRN GT 10/22/24 09:00 10/22/24 09:40 650 MG Examination General: RASS -2, febrile, mucosae are moist Cardiovascular: Normal S1 and S2. No murmurs, gallops or rubs Respiratory: Mechanically assisted ventilation, equal bilateral airway entree. Clear lung sounds on auscultation Abdomen: Soft, nontender, no organomegaly, normal bowel sounds MSK/skin: Mobilization of limbs cannot be evaluated. Skin is dry and warm. Neurological: Orientation cannot be assessed. No apparent motor no sensitive deficits. Pupils are isocoric and reactive laboratory and microbiology Laboratory Tests 10/22/24 03:00 Test 10/22/24 03:00 Range/Units Serum Glucose 98 74-106 mg/dL Microbiology Date/Time Source Procedure Growth Status 10/18/24 09:21 Pleural Fluid Gram Stain - Final Resulted 10/18/24 09:21 Pleural Fluid Body Fluid Culture - Preliminary Resulted 10/16/24 12:05 Bronchial Washings Gram Stain - Final Complete 10/16/24 12:05 Bronchial Washings Respiratory Culture - Final Complete 10/13/24 21:30 Voided Urine Urine Culture - Final Complete 10/13/24 14:20 Blood Blood Culture - Final NO GROWTH AFTER 5 DAYS OF INCUBATION. Complete 10/04/24 17:10 Nose MRSA Screen - Final Complete Labs and/or images reviewed: Labs reviewed by me, Image(s) reviewed by me Problem List/Assessment/Plan Problem List/Assessment/Plan Assessment/Plan Acute kidney injury likely ATN, FeNa ,> 2% requiring intermittent hemodialysis Acute respiratory failure, patient intubated on ventilator Hemodynamic shock acute blood loss anemia Perforated gastric ulcer status post surgery 10/04 Hyponatremia likely due to volume overload Pneumonia Sepsis Hypomagnesemia Hypertensive urgency Empyema status post right chest tube Acute blood loss anemia status post PRBC Recommendations Hemodialysis yesterday Epogen 72645 subQ 3 times weekly Gómez catheter Strict I&Os Increased Urine output and have negative balance IV Bumex 1 mg daily IV albumin 25%, 100 cc during dialysis Vasopressor as needed for dialysis support IV nicardipine drip as per primary IV antibiotic Electrolytes replacement We will continue to follow up Critical care spent time 41 minutes Plan discussed with Dr. Beauchamp Plan discussed with: Other (RN) Dietary Evaluation Review Comments: 1. Continue TPN to meet at least 75% estimated needs 2. Continue current POC Expected Outcomes/Goals: FU 2-3 days to meet adequate energy & protein within 7 days of NPO Protein Calorie Malnutrition: Severe (rn) CC Plasma Assessment Blood Product Administration S: [id number] SKY DASH Oct 22, 2024 12:52 MILADY BEAUCHAMP MD Oct 23, 2024 12:27
[2024-10-22] MEDS: Nepro With Carb Steady 1 Liter Bottle GT SCH (18:29)
--- NOTE | 2024-10-22 20:19 | DVHPN2 ---
Progress Note - Dictate Date Seen: Oct 22, 2024 Has the PT tested + for MRSA If YES, has PT been informed?: No Medical Necessity Reason Pt with a Central, PICC or Fol: Yes The following are medically ne: Central Line, Gómez Catheter Reason for gómez catheter: Strict I&O Subjective Patient seen and examined at bedside. intubated on mechanical ventilator. Overnight events reviewed. vital signs Vital Sign Date Time Temp Pulse Resp B/P (MAP) Pulse Ox O2 Delivery O2 Flow Rate FiO2 10/22/24 19:00 97 21 129/75 (93) 98 129/69 (89) 10/22/24 19:00 30 10/22/24 18:00 Mechanical Ventilator+ 10/22/24 16:00 99.5 99.5 Total Intake and Output 10/21/24 10/21/24 10/22/24 15:00 23:00 07:00 Intake Total 254.627 ml 381.750 ml 302.0 ml Output Total 1695 ml 1010 ml Balance 254.627 ml -1313.250 ml -708.0 ml medications Current Medications Medications Dose Ordered Sig/Wally Route Start Time Stop Time Status Last Admin Dose Admin Fentanyl Citrate 250 ml @ 2.5 mls/hr Q24H IV 10/04/24 09:45 10/22/24 00:32 22.5 MLS/HR Ondansetron HCl 4 mg Q4HP PRN IV 10/04/24 11:45 Morphine Sulfate 2 mg Q4HPRN PRN IV 10/04/24 11:45 Cancel Nitroglycerin 0.4 mg Q5MINP PRN SL 10/04/24 11:45 Morphine Sulfate 2 mg Q30M PRN IV 10/04/24 11:45 Cancel Lorazepam 50 mg/ Sodium Chloride 50 ml @ 1 mls/hr Q24H IV 10/04/24 18:15 Cancel Midazolam HCl 50 ml @ 1 mls/hr Q24H IV 10/04/24 18:30 10/22/24 00:31 6 MLS/HR Amino Acids 0 ml @ 0 mls/hr PER PHARMACY IV 10/05/24 14:30 UNV Diagnostic Test (Pha) 1 strip Q6HR 10/05/24 18:00 10/22/24 17:54 1 STRIP Insulin Human Regular FOLLOW SLIDING SCALE Q6HR SC 10/05/24 18:00 10/19/24 11:00 2 UNITS Dextrose 50 ml UD IV 10/05/24 14:45 Meropenem 50 ml @ 17 mls/hr Q12HR IV 10/07/24 10:00 UNV Labetalol HCl 10 mg Q2HPRN PRN IV 10/08/24 09:30 Propofol 100 ml @ 2.181 mls/ hr Q24H IV 10/10/24 10:30 10/19/24 18:02 4.3623 MLS/HR Pantoprazole Sodium 40 mg DAILY IV 10/12/24 10:00 10/22/24 10:30 40 MG Levalbuterol HCl 0.625 mg Q6HR NEB 10/13/24 12:00 10/22/24 19:00 0.625 MG Ipratropium [place] 0.5 mg Q6HR NEB 10/13/24 12:00 10/22/24 19:00 0.5 MG Norepinephrine Bitartrate 32 mg/ Sodium Chloride 250 ml @ 0.938 mls/ hr Q24H IV 10/14/24 10:15 10/21/24 14:56 0.938 MLS/HR Enteral Nutritional Formula 1,000 ml 30ML/HR GT 10/19/24 12:00 10/22/24 18:29 1,000 ML Epoetin Roger-epbx 10,000 unit MWF [place] 10/19/24 17:00 10/22/24 10:33 10,000 UNIT Ceftriaxone Sodium 50 ml @ 100 mls/hr DAILY@09 IV 10/21/24 09:00 10/22/24 09:10 100 MLS/HR Doxycycline Hyclate 100 ml @ 50 mls/hr Q12H IV 10/20/24 10:30 10/22/24 10:32 50 MLS/HR Enoxaparin Sodium 70 mg DAILY SC 10/21/24 10:00 10/22/24 10:32 70 MG Bumetanide 1 mg DAILY IV 10/22/24 10:00 10/22/24 10:31 1 MG Morphine Sulfate 2 mg Q4HPRN PRN IV 10/21/24 11:30 Morphine Sulfate 2 mg Q30M PRN IV 10/21/24 11:30 Metoclopramide HCl 10 mg DAILY GT 10/22/24 10:00 6/4/25 11:11 10 MG Nicardipine/ Sodium Chloride 200 ml @ 50 mls/hr Q4H IV 10/22/24 08:45 10/22/24 08:47 50 MLS/HR Metoprolol Tartrate 25 mg BID PO 10/22/24 10:00 10/22/24 12:34 25 MG Acetaminophen 650 mg Q6HP PRN GT 10/22/24 09:00 10/22/24 09:40 650 MG objective Gen.: Patient lying in bed in medical ICU. Intubated on mechanical ventilator. Head: Normocephalic, atraumatic. Eyes: PERRLA. Ears: Normal external anatomy. Throat: Endotracheal tube and orogastric tube in place. Neck: Supple, trachea midline. Chest: Transmitted breath sounds bilaterally. Decreased air entry bilaterally. No wheezing. Bibasilar crackles. Cardiovascular: Positive S1, positive S2. Regular rate and rhythm. Abdomen: Positive bowel sounds in all 4 quadrants. Soft, nontender, nondistended. : Gómez in place. Normal external genitalia. Rectal: Deferred. Skin: Warm, dry. Intact. Extremities: 2+ radial pulses bilaterally. No lower extremity edema. Neuro: Off sedation laboratory and microbiology Laboratory Tests 10/22/24 03:00 Test 10/22/24 03:00 Range/Units Serum Glucose 98 74-106 mg/dL Assessment/Plan Impression: Acute hypoxic respiratory failure On mechanical ventilator Septic shock Perforated viscus Nicotine dependence Events: Vent support On AC mode; RR 18, VT 550, PEEP 5, Fio2 30% Off sedation On Precedex drip. CPAP today for exercise. ABG notable for alkalemia CXR reviewed, demonstrates devices in place. Mild pulmonary vascular congestion, mildly improved. Small bilateral pleural effusions. Patchy airspace opacity in the right mid lung. Right chest tube in place. Off Levophed, hemodynamically stable. Chest tube in place Monitor output - 20 mL day shift No air leak Hypertensive, on nicardipine. Bumex drip for diuresis. Monitor renal function Monitor electrolytes. Supplement as necessary. Monitor ins and outs. Continue antibiotics. Continue bronchodilators Tube feeds for nutritional support Monitor hemoglobin Monitor KWAN + trish drain output Protonix for GI prophylaxis Therapeutic Lovenox for DVT prophylaxis CTA bilat pl effusion ?empyema George catheter was placed on 10/19/[address] Astorga For details of procedure see separate note Chest tube management Continuous wall suction Labs and imaging reviewed. Rest of plan as noted below. Plan: s/p intubation on mechanical ventilator. On AC mode; RR 18, VT 550, PEEP 5, Fio2 30% Titrate FIO2 to keep O2 saturation above 90%. VAP bundle. Daily ABG and CXR while intubated Off sedation Continue antibiotics. Continue bronchodilators Pressors if necessary for hemodynamic support Titrate to keep mean arterial pressure greater than 65 mmHg. Diurese Monitor renal function Monitor electrolytes. Supplement as necessary. Monitor ins and outs. GI prophylaxis. DVT prophylaxis. Prognosis: Poor given patient's multiple co-morbidities. Condition: Critical Rest of plan per hospitalist and other consultants. A total of 35 minutes of critical care time was spent reviewing the patient record, examining the patient, making a diagnostic and therapeutic plan, discussing this plan with the medical personnel, following up on diagnostic studies and following the patient for clinical stability excluding any and all procedures. At least 50% of this time was spent in direct, [id number] contact. Thank you, NIDIA Caldera, for allowing me to participate in this patient's care. Further recommendations will depend on the patient's clinical course. Please do not hesitate to contact me if you have any questions or concerns. This medical document was created using an electronic medical record system with [employer] dictation system. Although these documentations are being carefully reviewed, there may still be some phonetic and typographical changes. The errors are purely typographical, due to imperfection on the software program, and do not reflect any compromise in the patient's medical care. Dietary Evaluation Review Comments: 1. Continue TPN to meet at least 75% estimated needs 2. Continue current POC Expected Outcomes/Goals: FU 2-3 days to meet adequate energy & protein within 7 days of NPO Protein Calorie Malnutrition: Severe (rn) Plan discussed with: Other (JASPER Ruiz) Critical Care Time(min): 35 CC Plasma Assessment Blood Product Administration S: [id number] ARIE LOPEZ MD Oct 22, 2024 20:19
[2024-10-23] VITALS (107 sets, daily range): BP systolic 77–166; BP diastolic 39–103; PULSE 95–120; RESP 18–52; TEMP 98.1–100.8; O2SAT 85–100
[2024-10-23 04:02] LABS: Hematocrit 22.9 % (41.0-53.0); Hemoglobin 7.9 g/dL (13.5-17.5); Mean Corpuscular Hemoglobin 29.0 pg (28.0-32.0); Mean Corpuscular Volume 83.7 fL (80.0-100.0)
[2024-10-23 04:25] LABS: Albumin 3.4 g/dL (3.2-4.8); Anion Gap 15 (5-15); BUN/Creatinine Ratio 16.1 (10.0-20.0); Calcium 9.1 mg/dL (8.7-10.4); Carbon Dioxide 27 mmol/L (20-31); Glucose 105 mg/dL (74-106); Sodium 137 mmol/L (136-145); Total Protein 7.1 g/dL (5.7-8.2)
[2024-10-23 04:42] LABS: Alanine Aminotransferase 69 U/L (7-40); Alkaline Phosphatase 246 U/L (46-116); Bilirubin, Total 3.5 mg/dL (0.2-1.0); Blood Urea Nitrogen 77 mg/dL (9-23); Chloride 95 mmol/L (98-107); Potassium 3.5 mmol/L (3.5-5.1)
[2024-10-23 04:59] LABS: Total Cells Counted 100.0 (100)
[2024-10-23 05:00] LABS: Stomatocytes Moderate
[2024-10-23 06:39] LABS: Base Excess 6.1 mmol/L (-2.0-3.0)
--- NOTE | 2024-10-23 09:18 | DVHPN2 ---
Subjective Patient intubated and encephalopathic Reviewed: Care Plan, H&P, Labs, Medications, Previous Orders, Radiology, Other (Consultants) Changes from previous H/P or p: No Changes General: Per HPI Objective Vitals Vital Signs Date Time Temp Pulse Resp B/P (MAP) Pulse Ox O2 Delivery O2 Flow Rate FiO2 10/23/24 08:44 106 134/73 10/23/24 08:15 22 99 10/23/24 08:00 100.0 100.0 10/23/24 08:00 30 10/23/24 08:00 Mechanical Ventilator+ Intake/Output Intake and Output 10/23/24 06:59 Intake Total 788.328 ml Output Total 2200 ml Balance -1411.672 ml Intake Oral 180 ml IV Total 485.328 ml Tube Feeding 123 ml Output Urine Total 2000 ml Chest Tube Drainage Total 20 ml Drainage Total 90 ml Other 90 ml # Bowel Movements 1 General Appearance: mild distress, Other (Intubated and sedated) HEENT: Atraumatic, PERRLA Lungs: Other (Mechanical ventilation. Decreased breath sounds at bases) Cardiovascular: Regular rate, Normal S1, Normal S2, Other (Sinus rhythm) Abdomen: Other Neuro: Other (Unable to assess) Skin: Dry, Intact, Wounds, Other Psych/Mental Status: Other Medications Current Medications Medications Dose Ordered Sig/Wally Route Start Time Stop Time Status Last Admin Dose Admin Fentanyl Citrate 250 ml @ 2.5 mls/hr Q24H IV 10/04/24 09:45 10/22/24 00:32 22.5 MLS/HR Ondansetron HCl 4 mg Q4HP PRN IV 10/04/24 11:45 Morphine Sulfate 2 mg Q4HPRN PRN IV 10/04/24 11:45 Cancel Nitroglycerin 0.4 mg Q5MINP PRN SL 10/04/24 11:45 Morphine Sulfate 2 mg Q30M PRN IV 10/04/24 11:45 Cancel Lorazepam 50 mg/ Sodium Chloride 50 ml @ 1 mls/hr Q24H IV 10/04/24 18:15 Cancel Midazolam HCl 50 ml @ 1 mls/hr Q24H IV 10/04/24 18:30 10/22/24 00:31 6 MLS/HR Amino Acids 0 ml @ 0 mls/hr PER PHARMACY IV 10/05/24 14:30 UNV Diagnostic Test (Pha) 1 strip Q6HR 10/05/24 18:00 10/23/24 05:47 1 STRIP Insulin Human Regular FOLLOW SLIDING SCALE Q6HR SC 10/05/24 18:00 10/19/24 11:00 2 UNITS Dextrose 50 ml UD IV 10/05/24 14:45 Meropenem 50 ml @ 17 mls/hr Q12HR IV 10/07/24 10:00 UNV Labetalol HCl 10 mg Q2HPRN PRN IV 10/08/24 09:30 Propofol 100 ml @ 2.181 mls/ hr Q24H IV 10/10/24 10:30 10/19/24 18:02 4.3623 MLS/HR Pantoprazole Sodium 40 mg DAILY IV 10/12/24 10:00 10/23/24 08:44 40 MG Levalbuterol HCl 0.625 mg Q6HR NEB 10/13/24 12:00 10/23/24 05:50 0.625 MG Ipratropium [place] 0.5 mg Q6HR NEB 10/13/24 12:00 10/23/24 05:50 0.5 MG Norepinephrine Bitartrate 32 mg/ Sodium Chloride 250 ml @ 0.938 mls/ hr Q24H IV 10/14/24 10:15 10/21/24 14:56 0.938 MLS/HR Enteral Nutritional Formula 1,000 ml 30ML/HR GT 10/19/24 12:00 10/22/24 18:29 1,000 ML Epoetin Roger-epbx 10,000 unit MWF SC 10/19/24 17:00 10/22/24 10:33 10,000 UNIT Ceftriaxone Sodium 50 ml @ 100 mls/hr DAILY@09 IV 10/21/24 09:00 10/23/24 08:41 100 MLS/HR Doxycycline Hyclate 100 ml @ 50 mls/hr Q12H IV 10/20/24 10:30 10/22/24 22:15 50 MLS/HR Enoxaparin Sodium 70 mg DAILY SC 10/21/24 10:00 10/23/24 08:45 70 MG Bumetanide 1 mg DAILY IV 10/22/24 10:00 10/23/24 08:43 1 MG Morphine Sulfate 2 mg Q4HPRN PRN IV 10/21/24 11:30 Morphine Sulfate 2 mg Q30M PRN IV 10/21/24 11:30 Metoclopramide HCl 10 mg DAILY GT 10/22/24 10:00 10/23/24 08:42 10 MG Nicardipine/ Sodium Chloride 200 ml @ 50 mls/hr Q4H IV 10/22/24 08:45 10/22/24 08:47 50 MLS/HR Metoprolol Tartrate 25 mg BID PO 10/22/24 10:00 10/23/24 08:44 25 MG Acetaminophen 650 mg Q6HP PRN GT 10/22/24 09:00 10/23/24 06:35 650 MG Laboratory Results Laboratory Tests 10/23/24 02:45 Chemistry Test 10/23/24 02:45 Albumin 3.4 g/dL (3.2-4.8) Calcium Level 9.1 mg/dL (8.7-10.4) Total Protein 7.1 g/dL (5.7-8.2) LFT Test 10/23/24 02:45 Alanine Aminotransferase (ALT) 69 U/L (7-40) H Alkaline Phosphatase 246 U/L (46-116) H Aspartate Amino Transferase (AST) 102 U/L (13-40) H Total Bilirubin 3.5 mg/dL (0.2-1.0) H Urinalysis Test 10/05/24 15:05 10/11/24 18:00 Urine Color Light-yellow (Yellow) Urine Clarity Hazy (Clear) H Urine pH 5.5 (5.0-9.0) Urine Specific [place] 1.018 (1.001-1.035) Urine Protein 1+ (Negative) H Urine Ketones Negative (Negative) Urine Blood 3+ /uL (Negative) H Urine Nitrite Negative (Negative) Urine Bilirubin Negative (Negative) Urine Urobilinogen Normal mg/dL (Negative) Urine Leukocyte Esterase Negative /uL (Negative) Urine RBC 1 /hpf (0 - 3) Urine Microscopic WBC 9 /HPF (0-3) H Urine Squamous Epithelial Cells Few /hpf (<5) Urine Bacteria Few /hpf (None Seen) H Urine Mucus Few (None Seen) Urine Glucose Trace mg/dL (Normal) Urine Total Protein 85.0 mg/dL (1-14) H Urine Creatinine 48.05 mg/dL (30.0-125.0) Urine Sodium 76 mmol/L (40-220) Blood Gas Results Test 10/23/24 06:34 Arterial Blood pH 7.538 (7.350-7.450) FiO2 % 30.0 Microbiology Microbiology Date/Time Source Procedure Growth Status 10/18/24 09:21 Pleural Fluid Gram Stain - Final Resulted 10/18/24 09:21 Pleural Fluid Body Fluid Culture - Preliminary Resulted 10/16/24 12:05 Bronchial Washings Gram Stain - Final Complete 10/16/24 12:05 Bronchial Washings Respiratory Culture - Final Complete 10/13/24 21:30 Voided Urine Urine Culture - Final Complete 10/13/24 14:20 Blood Blood Culture - Final NO GROWTH AFTER 5 DAYS OF INCUBATION. Complete 10/04/24 17:10 Nose MRSA Screen - Final Complete Labs and/or images reviewed: Labs reviewed by me, Image(s) reviewed by me Assessment/Plan Assessment/Plan Impression: -severe septic shock -pneumoperitoneum secondary to perforated gastric ulcer -acute kidney injury, hemodynamically mediated, probable VMN -acute hypoxic respiratory failure -shock liver -nicotine dependence -history of CVA -right upper extremity DVT -multifocal pneumonia, probable Gram-positive/Gram-negative etiology -anemia secondary to nutrition, renal failure -bilateral pleural effusions Plan: Events: Patient off of sedation. Continues to be somewhat encephalopathic. Continue spontaneous breathing trials daily. Possible tracheostomy-discussed with Anastasia. -continue tube feeding -continue current antibiotics. -Protonix 40 mg IV twice a day -further recommendations per surgical consultation -continue current sedation -continue Bumex drip. Nephrology recommendations appreciated -continue anticoagulation with Lovenox. -repeat labs, chest x-ray, ABG in a.m. -Discussed plan of care with . All questions answered. Critical care time spent with patient discussing and formulating plan of care: 90 minutes. This does not include time spent performing procedures. This medical document was created using an electronic medical record system with [employer] system. Although this document has been carefully reviewed, there may still be some phonetic and typographical errors. These areas are purely typographical due to imperfections of the software programs, and do not reflect any compromise in the patient's medical care. Plan discussed with: Patient, Spouse, Other (RN) My Orders Orders - [facility] [employer] Procedure Category Date Status Time Abg W/ Co-Ox RT 10/23/24 Logged 06:00 Cpap/Sed Vacation Med ORDERS 10/23/24 Transmitted Weaning 09:07 Cpap Trial For Am ORDERS 10/23/24 Transmitted 09:07 Date of Service: Oct 23, 2024 Billing Provider: CHEYENNE PIKE NP Common Visit Codes: 64240-TRJOZYYR CARE 30-74 MIN CHEYENNE PIKE NP Oct 23, 2024 09:18
--- NOTE | 2024-10-23 11:12 | DVHPN2 ---
Progress Note Date Seen: Oct 23, 2024 Resident Creating Document: SKY DASH RESIDENT Has the PT tested + for MRSA If YES, has PT been informed?: No Medical Necessity Reason Pt with a Central, PICC or Fol: Yes The following are medically ne: Central Line, Gómez Catheter Reason for gómez catheter: Strict I&O Subjective Review of Systems The patient was seen and examined on the bedside. He is on mechanical ventilation with FiO2 30%, tidal volume 550, peep 5 and respiratory rate 18. Having low grade fever, patient is on Precedex and nicardipine drip for control of agitation and blood pressure .Patient is scheduled for CPAP trial today. Review of Systems: RESPIRATORY:Abnormal Other Systems: Patient seen and examined by myself today on rounds with the medicine resident, I agree with her assessment and plan Patient remained intubated on ventilator Patient examined hemodialysis, blood pressure stable Objective vital signs Vital Sign Date Time Temp Pulse Resp B/P (MAP) Pulse Ox O2 Delivery O2 Flow Rate FiO2 10/23/24 10:15 105 21 146/74 (98) 99 145/82 (103) 10/23/24 10:00 30 10/23/24 10:00 98.8 98.8 10/23/24 10:00 Mechanical Ventilator+ Total Intake and Output 10/22/24 10/22/24 10/23/24 15:00 23:00 07:00 Intake Total 367.828 ml 150 ml 253 ml Output Total 1250 ml 950 ml Balance 367.828 ml -1100 ml -697 ml medications Current Medications Medications Dose Ordered Sig/Wally Route Start Time Stop Time Status Last Admin Dose Admin Fentanyl Citrate 250 ml @ 2.5 mls/hr Q24H IV 10/04/24 09:45 10/22/24 00:32 22.5 MLS/HR Ondansetron HCl 4 mg Q4HP PRN IV 10/04/24 11:45 Morphine Sulfate 2 mg Q4HPRN PRN IV 10/04/24 11:45 Cancel Nitroglycerin 0.4 mg Q5MINP PRN SL 10/04/24 11:45 Morphine Sulfate 2 mg Q30M PRN IV 10/04/24 11:45 Cancel Lorazepam 50 mg/ Sodium Chloride 50 ml @ 1 mls/hr Q24H IV 10/04/24 18:15 Cancel Midazolam HCl 50 ml @ 1 mls/hr Q24H IV 10/04/24 18:30 10/22/24 00:31 6 MLS/HR Amino Acids 0 ml @ 0 mls/hr PER PHARMACY IV 10/05/24 14:30 UNV Diagnostic Test (Pha) 1 strip Q6HR 10/05/24 18:00 10/23/24 05:47 1 STRIP Insulin Human Regular FOLLOW SLIDING SCALE Q6HR SC 10/05/24 18:00 10/19/24 11:00 2 UNITS Dextrose 50 ml UD IV 10/05/24 14:45 Meropenem 50 ml @ 17 mls/hr Q12HR IV 10/07/24 10:00 UNV Labetalol HCl 10 mg Q2HPRN PRN IV 10/08/24 09:30 Propofol 100 ml @ 2.181 mls/ hr Q24H IV 10/10/24 10:30 10/19/24 18:02 4.3623 MLS/HR Pantoprazole Sodium 40 mg DAILY IV 10/12/24 10:00 10/23/24 08:44 40 MG Levalbuterol HCl 0.625 mg Q6HR NEB 10/13/24 12:00 10/23/24 05:50 0.625 MG Ipratropium [place] 0.5 mg Q6HR NEB 10/13/24 12:00 10/23/24 05:50 0.5 MG Norepinephrine Bitartrate 32 mg/ Sodium Chloride 250 ml @ 0.938 mls/ hr Q24H IV 10/14/24 10:15 10/21/24 14:56 0.938 MLS/HR Enteral Nutritional Formula 1,000 ml 30ML/HR GT 10/19/24 12:00 10/22/24 18:29 1,000 ML Epoetin Roger-epbx 10,000 unit MWF SC 10/19/24 17:00 10/22/24 10:33 10,000 UNIT Ceftriaxone Sodium 50 ml @ 100 mls/hr DAILY@09 IV 10/21/24 09:00 10/23/24 08:41 100 MLS/HR Doxycycline Hyclate 100 ml @ 50 mls/hr Q12H IV 10/20/24 10:30 10/23/24 10:11 50 MLS/HR Enoxaparin Sodium 70 mg DAILY SC 10/21/24 10:00 10/23/24 08:45 70 MG Bumetanide 1 mg DAILY IV 10/22/24 10:00 10/23/24 08:43 1 MG Morphine Sulfate 2 mg Q4HPRN PRN IV 10/21/24 11:30 Morphine Sulfate 2 mg Q30M PRN IV 10/21/24 11:30 Metoclopramide HCl 10 mg DAILY GT 10/22/24 10:00 10/23/24 08:42 10 MG Nicardipine/ Sodium Chloride 200 ml @ 50 mls/hr Q4H IV 10/22/24 08:45 10/22/24 08:47 50 MLS/HR Metoprolol Tartrate 25 mg BID PO 10/22/24 10:00 10/23/24 08:44 25 MG Acetaminophen 650 mg Q6HP PRN GT 10/22/24 09:00 10/23/24 06:35 650 MG Examination Examination General: RASS -2, febrile, mucosae are moist Cardiovascular: Normal S1 and S2. No murmurs, gallops or rubs Respiratory: Mechanically assisted ventilation, equal bilateral airway entree. Clear lung sounds on auscultation Abdomen: Soft, nontender, no organomegaly, normal bowel sounds MSK/skin: Mobilization of limbs cannot be evaluated. Skin is dry and warm. Neurological: Orientation cannot be assessed. No apparent motor no sensitive deficits. Pupils are isocoric and reactive laboratory and microbiology Laboratory Tests 10/23/24 02:45 Test 10/23/24 02:45 Range/Units Serum Glucose 105 74-106 mg/dL Microbiology Date/Time Source Procedure Growth Status 10/18/24 09:21 Pleural Fluid Gram Stain - Final Resulted 10/18/24 09:21 Pleural Fluid Body Fluid Culture - Preliminary Resulted 10/16/24 12:05 Bronchial Washings Gram Stain - Final Complete 10/16/24 12:05 Bronchial Washings Respiratory Culture - Final Complete 10/13/24 21:30 Voided Urine Urine Culture - Final Complete 10/13/24 14:20 Blood Blood Culture - Final NO GROWTH AFTER 5 DAYS OF INCUBATION. Complete 10/04/24 17:10 Nose MRSA Screen - Final Complete Labs and/or images reviewed: Labs reviewed by me, Image(s) reviewed by me Problem List/Assessment/Plan Problem List/Assessment/Plan Assessment/Plan Acute kidney injury likely ATN, FeNa ,> 2% requiring intermittent hemodialysis Acute respiratory failure, patient intubated on ventilator Hemodynamic shock acute blood loss anemia Perforated gastric ulcer status post surgery 10/04 Hyponatremia likely due to volume overload Pneumonia Sepsis Hypomagnesemia Hypertensive urgency Empyema status post right chest tube Acute blood loss anemia status post PRBC Recommendations Continue with UF 3 L as tolerated Epogen 66090 subQ 3 times weekly Gómez catheter Strict I&Os Increased Urine output and have negative balance IV Bumex 1 mg daily IV albumin 25%, 100 cc during dialysis Vasopressor as needed for dialysis support IV nicardipine drip as per primary IV antibiotic Electrolytes replacement We will continue to follow up Critical care spent time 41 minutes Plan discussed with Dr. Beauchamp Plan discussed with: Other (RN) My Orders My Orders Orders - SKY DASH Procedure Category Date Status Time Blood Culture HOLA 6/10/12 In Process 08:58 Urine Bacterial HOLA /10/12 In Process Culture 08:58 Respiratory Culture HOLA /10/12 Logged W/ Gs 08:58 Dietary Evaluation Review Comments: 1. Continue TPN to meet at least 75% estimated needs 2. Continue current POC Expected Outcomes/Goals: FU 2-3 days to meet adequate energy & protein within 7 days of NPO Protein Calorie Malnutrition: Severe (rn) CC Plasma Assessment Blood Product Administration S: [id number] SKY DASH RESIDENT Oct 23, 2024 11:12 MILADY BEAUCHAMP MD Oct 23, 2024 12:27
[2024-10-23] MEDS: EPOETIN ALFA-EPBX 10,000 UNIT/1ML VIAL SC ONE (21:15)
--- NOTE | 2024-10-23 23:19 | DVHPN2 ---
Progress Note - Dictate Date Seen: Oct 23, 2024 Has the PT tested + for MRSA If YES, has PT been informed?: No Medical Necessity Reason Pt with a Central, PICC or Fol: Yes The following are medically ne: Central Line, Gómez Catheter Reason for gómez catheter: Strict I&O Subjective Patient seen and examined at bedside. intubated on mechanical ventilator. Overnight events reviewed. vital signs Vital Sign Date Time Temp Pulse Resp B/P (MAP) Pulse Ox O2 Delivery O2 Flow Rate FiO2 10/23/24 22:07 112 26 143/85 (104) 98 30 10/23/24 22:00 Mechanical Ventilator+ 10/23/24 19:05 100.0 Total Intake and Output 10/22/24 10/22/24 10/23/24 15:00 23:00 07:00 Intake Total 367.828 ml 150 ml 253 ml Output Total 1250 ml 950 ml Balance 367.828 ml -1100 ml -697 ml medications Current Medications Medications Dose Ordered Sig/Wally Route Start Time Stop Time Status Last Admin Dose Admin Fentanyl Citrate 250 ml @ 2.5 mls/hr Q24H IV 10/04/24 09:45 10/22/24 00:32 22.5 MLS/HR Ondansetron HCl 4 mg Q4HP PRN IV 10/04/24 11:45 Morphine Sulfate 2 mg Q4HPRN PRN IV 10/04/24 11:45 Cancel Nitroglycerin 0.4 mg Q5MINP PRN SL 10/04/24 11:45 Morphine Sulfate 2 mg Q30M PRN IV 10/04/24 11:45 Cancel Lorazepam 50 mg/ Sodium Chloride 50 ml @ 1 mls/hr Q24H IV 10/04/24 18:15 Cancel Midazolam HCl 50 ml @ 1 mls/hr Q24H IV 10/04/24 18:30 10/22/24 00:31 6 MLS/HR Amino Acids 0 ml @ 0 mls/hr PER PHARMACY IV 10/05/24 14:30 UNV Diagnostic Test (Pha) 1 strip Q6HR 10/05/24 18:00 10/23/24 17:18 1 STRIP Insulin Human Regular FOLLOW SLIDING SCALE Q6HR SC 10/05/24 18:00 10/19/24 11:00 2 UNITS Dextrose 50 ml UD IV 10/05/24 14:45 Meropenem 50 ml @ 17 mls/hr Q12HR IV 10/07/24 10:00 UNV Labetalol HCl 10 mg Q2HPRN PRN IV 10/08/24 09:30 Propofol 100 ml @ 2.181 mls/ hr Q24H IV 10/10/24 10:30 10/19/24 18:02 4.3623 MLS/HR Pantoprazole Sodium 40 mg DAILY IV 10/12/24 10:00 10/23/24 08:44 40 MG Levalbuterol HCl 0.625 mg Q6HR NEB 10/13/24 12:00 10/23/24 18:19 0.625 MG Ipratropium [place] 0.5 mg Q6HR NEB 10/13/24 12:00 10/23/24 18:19 0.5 MG Norepinephrine Bitartrate 32 mg/ Sodium Chloride 250 ml @ 0.938 mls/ hr Q24H IV 10/14/24 10:15 10/21/24 14:56 0.938 MLS/HR Enteral Nutritional Formula 1,000 ml 30ML/HR GT 10/19/24 12:00 10/22/24 18:29 1,000 ML Epoetin Roger-epbx 10,000 unit MWF SC 10/19/24 17:00 10/22/24 10:33 10,000 UNIT Ceftriaxone Sodium 50 ml @ 100 mls/hr DAILY@09 IV 10/21/24 09:00 10/23/24 08:41 100 MLS/HR Doxycycline Hyclate 100 ml @ 50 mls/hr Q12H IV 10/20/24 10:30 10/23/24 22:42 50 MLS/HR Enoxaparin Sodium 70 mg DAILY SC 10/21/24 10:00 10/23/24 08:45 70 MG Bumetanide 1 mg DAILY IV 10/22/24 10:00 10/23/24 08:43 1 MG Morphine Sulfate 2 mg Q4HPRN PRN IV 10/21/24 11:30 Morphine Sulfate 2 mg Q30M PRN IV 10/21/24 11:30 Metoclopramide HCl 10 mg DAILY GT 10/22/24 10:00 10/23/24 08:42 10 MG Nicardipine/ Sodium Chloride 200 ml @ 50 mls/hr Q4H IV 10/22/24 08:45 10/22/24 08:47 50 MLS/HR Metoprolol Tartrate 25 mg BID PO 10/22/24 10:00 10/23/24 08:44 25 MG Acetaminophen 650 mg Q6HP PRN GT 10/22/24 09:00 10/23/24 18:05 650 MG objective Gen.: Patient lying in bed in medical ICU. Intubated on mechanical ventilator. Head: Normocephalic, atraumatic. Eyes: PERRLA. Ears: Normal external anatomy. Throat: Endotracheal tube and orogastric tube in place. Neck: Supple, trachea midline. Chest: Transmitted breath sounds bilaterally. Decreased air entry bilaterally. No wheezing. Bibasilar crackles. Cardiovascular: Positive S1, positive S2. Regular rate and rhythm. Abdomen: Positive bowel sounds in all 4 quadrants. Soft, nontender, nondistended. : Gómez in place. Normal external genitalia. Rectal: Deferred. Skin: Warm, dry. Intact. Extremities: 2+ radial pulses bilaterally. No lower extremity edema. Neuro: Off sedation laboratory and microbiology Laboratory Tests 10/23/24 02:45 Test 10/23/24 02:45 Range/Units Serum Glucose 105 74-106 mg/dL Assessment/Plan Impression: Acute hypoxic respiratory failure On mechanical ventilator Septic shock Perforated viscus Nicotine dependence Events: Vent support On AC mode; RR 18, VT 550, PEEP 5, Fio2 30% Remains off sedation Elevated temperature of 99.9 degrees Fahrenheit Cooling measures. Tolerated CPAP Awaiting for mentation to improve for extubation ABG notable for alkalemia CXR on 10/[address] Mild pulmonary vascular congestion, mildly improved. Small bilateral pleural effusions. Patchy airspace opacity in the right mid lung. Right chest tube in place. Off pressors, hemodynamically stable. Chest tube in place Monitor output No air leak Blood pressure control Bumex drip for diuresis. Monitor renal function Monitor electrolytes. Supplement as necessary. Monitor ins and outs. Continue antibiotics. Follow up cultures Continue bronchodilators Tube feeds for nutritional support Monitor hemoglobin Monitor KWAN + trish drain output Protonix for GI prophylaxis Therapeutic Lovenox for DVT prophylaxis Labs and imaging reviewed. Rest of plan as noted below. Plan: s/p intubation on mechanical ventilator. On AC mode; RR 18, VT 550, PEEP 5, Fio2 30% Titrate FIO2 to keep O2 saturation above 90%. VAP bundle. Daily ABG and CXR while intubated Off sedation Continue antibiotics. Continue bronchodilators Pressors if necessary for hemodynamic support Titrate to keep mean arterial pressure greater than 65 mmHg. Diurese Monitor renal function Monitor electrolytes. Supplement as necessary. Monitor ins and outs. GI prophylaxis. DVT prophylaxis. Prognosis: Poor given patient's multiple co-morbidities. Condition: Critical Rest of plan per hospitalist and other consultants. A total of 35 minutes of critical care time was spent reviewing the patient record, examining the patient, making a diagnostic and therapeutic plan, discussing this plan with the medical personnel, following up on diagnostic studies and following the patient for clinical stability excluding any and all procedures. At least 50% of this time was spent in direct, [id number] contact. Thank you, NIDIA Caldera, for allowing me to participate in this patient's care. Further recommendations will depend on the patient's clinical course. Please do not hesitate to contact me if you have any questions or concerns. This medical document was created using an electronic medical record system with [employer] dictation system. Although these documentations are being carefully reviewed, there may still be some phonetic and typographical changes. The errors are purely typographical, due to imperfection on the software program, and do not reflect any compromise in the patient's medical care. Dietary Evaluation Review Comments: 1. Continue TPN to meet at least 75% estimated needs 2. Continue current POC Expected Outcomes/Goals: FU 2-3 days to meet adequate energy & protein within 7 days of NPO Protein Calorie Malnutrition: Severe (rn) Plan discussed with: Other (RN) Critical Care Time(min): 35 CC Plasma Assessment Blood Product Administration S: [id number] ARIE LOPEZ MD Oct 23, 2024 23:19
[2024-10-24] VITALS (103 sets, daily range): BP systolic 14–179; BP diastolic -6–102; PULSE 98–133; RESP 20–32; TEMP 99.5–100.8; O2SAT 96–100
[2024-10-24 03:45] LABS: Hematocrit 26.2 % (41.0-53.0); Hemoglobin 9.0 g/dL (13.5-17.5); Mean Corpuscular Hemoglobin 28.9 pg (28.0-32.0); Mean Corpuscular Volume 84.5 fL (80.0-100.0)
[2024-10-24 04:05] LABS: Albumin 3.8 g/dL (3.2-4.8); Anion Gap 16 (5-15); BUN/Creatinine Ratio 15.5 (10.0-20.0); Calcium 9.3 mg/dL (8.7-10.4); Carbon Dioxide 27 mmol/L (20-31); Sodium 138 mmol/L (136-145); Total Protein 8.0 g/dL (5.7-8.2)
[2024-10-24 04:07] LABS: Alanine Aminotransferase 100 U/L (7-40); Alkaline Phosphatase 301 U/L (46-116); Bilirubin, Total 2.7 mg/dL (0.2-1.0); Blood Urea Nitrogen 65 mg/dL (9-23); Chloride 95 mmol/L (98-107); Glucose 125 mg/dL (74-106); Potassium 3.4 mmol/L (3.5-5.1)
[2024-10-24 05:41] LABS: Giant Platelets Few; Stomatocytes Moderate; Total Cells Counted 100.0 (100)
--- NOTE | 2024-10-24 05:53 | DVH ---
EXAM: XR Chest, 1 View CLINICAL INDICATION: pna TECHNIQUE: Frontal view of the chest. COMPARISON: XY CHEST PORTABLE on DOS: 10/22/24, XY CHEST PORTABLE on DOS: 10/21/24, XY CHEST PORTABLE o n DOS: 10/20/24, XY CHEST PORTABLE on DOS: 10/19/24, XY CHEST PORTABLE on DOS: 10/19/24 FINDINGS: LUNGS AND PLEURAL SPACES: Left basilar atelectasis or pneumonia. HEART: Unremarkable. No cardiomegaly. MEDIASTINUM: Unremarkable. Normal mediastinal contour. BONES/JOINTS: Unremarkable. No acute fracture. TUBES, LINES AND DEVICES: The endotracheal tube (ETT) is in satisfactory position. Left internal j ugular central venous catheter tip in the superior vena cava. Right-sided pigtail chest tube. No pn eumothorax. OTHER FINDINGS: . . IMPRESSION: Left basilar atelectasis or pneumonia.
[2024-10-24 06:52] LABS: Base Excess 3.8 mmol/L (-2.0-3.0)
[2024-10-24] MEDS: PIPERACILLIN-TAZOB 2.25GM 50 ML IV ONE (08:37)
--- NOTE | 2024-10-24 09:01 | DVHPN2 ---
Progress Note Date Seen: Oct 24, 2024 Has the PT tested + for MRSA If YES, has PT been informed?: No Medical Necessity Reason Pt with a Central, PICC or Fol: Yes The following are medically ne: Central Line, Gómez Catheter Reason for gómez catheter: Strict I&O Objective vital signs Vital Sign Date Time Temp Pulse Resp B/P (MAP) Pulse Ox O2 Delivery O2 Flow Rate FiO2 10/24/24 08:00 122 10/24/24 08:00 25 97 Mechanical Ventilator+ 30 30 10/24/24 07:45 143/79 (100) 137/75 (95) 10/24/24 06:45 100.2 100.2 Total Intake and Output 10/23/24 10/23/24 10/24/24 15:00 23:00 07:00 Intake Total 150 ml 150 ml 230 ml Output Total 580 ml 377 ml Balance 150 ml -430 ml -147 ml medications Current Medications Medications Dose Ordered Sig/Wally Route Start Time Stop Time Status Last Admin Dose Admin Fentanyl Citrate 250 ml @ 2.5 mls/hr Q24H IV 10/04/24 09:45 10/22/24 00:32 22.5 MLS/HR Ondansetron HCl 4 mg Q4HP PRN IV 10/04/24 11:45 Morphine Sulfate 2 mg Q4HPRN PRN IV 10/04/24 11:45 Cancel Nitroglycerin 0.4 mg Q5MINP PRN SL 10/04/24 11:45 Morphine Sulfate 2 mg Q30M PRN IV 10/04/24 11:45 Cancel Lorazepam 50 mg/ Sodium Chloride 50 ml @ 1 mls/hr Q24H IV 10/04/24 18:15 Cancel Midazolam HCl 50 ml @ 1 mls/hr Q24H IV 10/04/24 18:30 10/22/24 00:31 6 MLS/HR Amino Acids 0 ml @ 0 mls/hr PER PHARMACY IV 10/05/24 14:30 UNV Diagnostic Test (Pha) 1 strip Q6HR 10/05/24 18:00 10/24/24 05:44 1 STRIP Insulin Human Regular FOLLOW SLIDING SCALE Q6HR SC 10/05/24 18:00 10/19/24 11:00 2 UNITS Dextrose 50 ml UD IV 10/05/24 14:45 Meropenem 50 ml @ 17 mls/hr Q12HR IV 10/07/24 10:00 UNV Labetalol HCl 10 mg Q2HPRN PRN IV 10/08/24 09:30 Propofol 100 ml @ 2.181 mls/ hr Q24H IV 10/10/24 10:30 10/19/24 18:02 4.3623 MLS/HR Pantoprazole Sodium 40 mg DAILY IV 10/12/24 10:00 10/23/24 08:44 40 MG Levalbuterol HCl 0.625 mg Q6HR NEB 10/13/24 12:00 10/24/24 05:48 0.625 MG Ipratropium [place] 0.5 mg Q6HR NEB 10/13/24 12:00 10/24/24 05:48 0.5 MG Norepinephrine Bitartrate 32 mg/ Sodium Chloride 250 ml @ 0.938 mls/ hr Q24H IV 10/14/24 10:15 10/21/24 14:56 0.938 MLS/HR Enteral Nutritional Formula 1,000 ml 30ML/HR GT 10/19/24 12:00 10/22/24 18:29 1,000 ML Epoetin Roger-epbx 10,000 unit MWF SC 10/19/24 17:00 10/22/24 10:33 10,000 UNIT Enoxaparin Sodium 70 mg DAILY SC 10/21/24 10:00 10/23/24 08:45 70 MG Bumetanide 1 mg DAILY IV 10/22/24 10:00 10/23/24 08:43 1 MG Morphine Sulfate 2 mg Q4HPRN PRN IV 10/21/24 11:30 Morphine Sulfate 2 mg Q30M PRN IV 10/21/24 11:30 Metoclopramide HCl 10 mg DAILY GT 10/22/24 10:00 10/23/24 08:42 10 MG Nicardipine/ Sodium Chloride 200 ml @ 50 mls/hr Q4H IV 10/22/24 08:45 10/22/24 08:47 50 MLS/HR Metoprolol Tartrate 25 mg BID PO 10/22/24 10:00 10/23/24 23:58 25 MG Acetaminophen 650 mg Q6HP PRN GT 10/22/24 09:00 10/24/24 01:45 650 MG Linezolid 300 ml @ 150 mls/hr Q12HR IV 10/24/24 10:00 Piperacillin Sod/ Tazobactam Sod 50 ml @ 12.5 mls/hr Q8H IV 10/24/24 16:00 laboratory and microbiology Laboratory Tests 10/24/24 03:19 Test 10/24/24 03:19 Range/Units Serum Glucose 125 H 74-106 mg/dL Problem List/Assessment/Plan Problem List/Assessment/Plan 10/10/24 patient had exploratory operation with closure of perforated peptic ulceration about 5 days ago, now concern about possible cholecystitis. GB sludge,GB wall thickened and surounding edema,.LFT's elevated. [patient has history of heavy alcohol use(spouse report). LFTs elevation could be due to liver Ds but cholecystostomy is a reasonable next step, will follow with you 10/14/24 patient appears "surgically stable", will get gastrografin UGI prior to resuming gastric feedings 10/16/24 GASTROGRAFGIN UGI POSSIBLY WITH PERSISTENT LEAK FROM REPAIRED PYLORIC PERFORATION, I HAVE ORDERED A CT SCAN FOR CONFIRMATION 10/24/24 clinically unchanged,being weaned off ventilator, abdomen non distended, tolerating tube feedings, having BM's, KWAN drains with minimal clear drainage, drains removed. Plan discussed with: Other Dietary Evaluation Review Comments: 1. Continue TPN to meet at least 75% estimated needs 2. Continue current POC Expected Outcomes/Goals: FU 2-3 days to meet adequate energy & protein within 7 days of NPO Protein Calorie Malnutrition: Severe (rn) LOBO BOSWELL MD Oct 24, 2024 09:01
[2024-10-24] MEDS: LINEZOLID 600MG/300ML 300 ML IV SCH (09:45)
[2024-10-24] MEDS: Nepro With Carb Steady 1 Liter Bottle GT SCH (09:46)
--- NOTE | 2024-10-24 10:00 | DVHPN2 ---
Subjective Patient intubated and encephalopathic Reviewed: Care Plan, H&P, Labs, Medications, Previous Orders, Radiology, Other (Consultants) Changes from previous H/P or p: No Changes General: Per HPI Objective Vitals Vital Signs Date Time Temp Pulse Resp B/P (MAP) Pulse Ox O2 Delivery O2 Flow Rate FiO2 10/24/24 09:46 121 144/88 10/24/24 09:19 25 96 30 10/24/24 08:00 99.7 99.7 10/24/24 08:00 Mechanical Ventilator+ Intake/Output Intake and Output 10/24/24 07:00 Intake Total 530 ml Output Total 957 ml Balance -427 ml Intake Oral 140 ml IV Total 250 ml Tube Feeding 140 ml Output Urine Total 720 ml Stool Total 50 ml Chest Tube Drainage Total 20 ml Drainage Total 22 ml Other 145 ml # Bowel Movements 4 General Appearance: mild distress, Other (Intubated and sedated) HEENT: Atraumatic, PERRLA Lungs: Other (Mechanical ventilation. Decreased breath sounds at bases) Cardiovascular: Regular rate, Normal S1, Normal S2, Other (Sinus rhythm) Abdomen: Other Neuro: Other (Unable to assess) Skin: Dry, Intact, Wounds, Other Psych/Mental Status: Other Medications Current Medications Medications Dose Ordered Sig/Wally Route Start Time Stop Time Status Last Admin Dose Admin Fentanyl Citrate 250 ml @ 2.5 mls/hr Q24H IV 10/04/24 09:45 10/22/24 00:32 22.5 MLS/HR Ondansetron HCl 4 mg Q4HP PRN IV 10/04/24 11:45 Morphine Sulfate 2 mg Q4HPRN PRN IV 10/04/24 11:45 Cancel Nitroglycerin 0.4 mg Q5MINP PRN SL 10/04/24 11:45 Morphine Sulfate 2 mg Q30M PRN IV 10/04/24 11:45 Cancel Lorazepam 50 mg/ Sodium Chloride 50 ml @ 1 mls/hr Q24H IV 10/04/24 18:15 Cancel Midazolam HCl 50 ml @ 1 mls/hr Q24H IV 10/04/24 18:30 10/22/24 00:31 6 MLS/HR Amino Acids 0 ml @ 0 mls/hr PER PHARMACY IV 10/05/24 14:30 UNV Diagnostic Test (Pha) 1 strip Q6HR 10/05/24 18:00 10/24/24 05:44 1 STRIP Insulin Human Regular FOLLOW SLIDING SCALE Q6HR SC 10/05/24 18:00 10/19/24 11:00 2 UNITS Dextrose 50 ml UD IV 10/05/24 14:45 Meropenem 50 ml @ 17 mls/hr Q12HR IV 10/07/24 10:00 UNV Labetalol HCl 10 mg Q2HPRN PRN IV 10/08/24 09:30 Propofol 100 ml @ 2.181 mls/ hr Q24H IV 10/10/24 10:30 10/19/24 18:02 4.3623 MLS/HR Pantoprazole Sodium 40 mg DAILY IV 10/12/24 10:00 10/24/24 09:45 40 MG Levalbuterol HCl 0.625 mg Q6HR NEB 10/13/24 12:00 10/24/24 05:48 0.625 MG Ipratropium [place] 0.5 mg Q6HR NEB 10/13/24 12:00 10/24/24 05:48 0.5 MG Norepinephrine Bitartrate 32 mg/ Sodium Chloride 250 ml @ 0.938 mls/ hr Q24H IV 10/14/24 10:15 10/21/24 14:56 0.938 MLS/HR Epoetin Roger-epbx 10,000 unit MWF [place] 10/19/24 17:00 10/22/24 10:33 10,000 UNIT Enoxaparin Sodium 70 mg DAILY SC 10/21/24 10:00 10/24/24 09:46 70 MG Bumetanide 1 mg DAILY IV 10/22/24 10:00 10/24/24 09:45 1 MG Morphine Sulfate 2 mg Q4HPRN PRN IV 10/21/24 11:30 Morphine Sulfate 2 mg Q30M PRN IV 10/21/24 11:30 Metoclopramide HCl 10 mg DAILY GT 10/22/24 10:00 10/24/24 09:45 10 MG Nicardipine/ Sodium Chloride 200 ml @ 50 mls/hr Q4H IV 10/22/24 08:45 10/22/24 08:47 50 MLS/HR Metoprolol Tartrate 25 mg BID PO 10/22/24 10:00 10/24/24 09:46 25 MG Acetaminophen 650 mg Q6HP PRN GT 10/22/24 09:00 10/24/24 01:45 650 MG Linezolid 300 ml @ 150 mls/hr Q12HR IV 10/24/24 10:00 10/24/24 09:45 150 MLS/HR Piperacillin Sod/ Tazobactam Sod 50 ml @ 12.5 mls/hr Q8H IV 10/24/24 16:00 Enteral Nutritional Formula 1,000 ml 30ML/HR GT 10/24/24 09:15 10/24/24 09:46 1,000 ML Laboratory Results Laboratory Tests 10/24/24 03:19 Chemistry Test 10/24/24 03:19 Albumin 3.8 g/dL (3.2-4.8) Calcium Level 9.3 mg/dL (8.7-10.4) Total Protein 8.0 g/dL (5.7-8.2) LFT Test 10/24/24 03:19 Alanine Aminotransferase (ALT) 100 U/L (7-40) H Alkaline Phosphatase 301 U/L (46-116) H Aspartate Amino Transferase (AST) 113 U/L (13-40) H Total Bilirubin 2.7 mg/dL (0.2-1.0) H Urinalysis Test 10/05/24 15:05 10/11/24 18:00 Urine Color Light-yellow (Yellow) Urine Clarity Hazy (Clear) H Urine pH 5.5 (5.0-9.0) Urine Specific [place] 1.018 (1.001-1.035) Urine Protein 1+ (Negative) H Urine Ketones Negative (Negative) Urine Blood 3+ /uL (Negative) H Urine Nitrite Negative (Negative) Urine Bilirubin Negative (Negative) Urine Urobilinogen Normal mg/dL (Negative) Urine Leukocyte Esterase Negative /uL (Negative) Urine RBC 1 /hpf (0 - 3) Urine Microscopic WBC 9 /HPF (0-3) H Urine Squamous Epithelial Cells Few /hpf (<5) Urine Bacteria Few /hpf (None Seen) H Urine Mucus Few (None Seen) Urine Glucose Trace mg/dL (Normal) Urine Total Protein 85.0 mg/dL (1-14) H Urine Creatinine 48.05 mg/dL (30.0-125.0) Urine Sodium 76 mmol/L (40-220) Blood Gas Results Test 10/24/24 06:45 Arterial Blood pH 7.550 (7.350-7.450) FiO2 % 30.0 Microbiology Microbiology Date/Time Source Procedure Growth Status 10/18/24 09:21 Pleural Fluid Gram Stain - Final Resulted 10/18/24 09:21 Pleural Fluid Body Fluid Culture - Preliminary Resulted 10/16/24 12:05 Bronchial Washings Gram Stain - Final Complete 10/16/24 12:05 Bronchial Washings Respiratory Culture - Final Complete 10/13/24 21:30 Voided Urine Urine Culture - Final Complete 10/13/24 14:20 Blood Blood Culture - Final NO GROWTH AFTER 5 DAYS OF INCUBATION. Complete 10/04/24 17:10 Nose MRSA Screen - Final Complete Labs and/or images reviewed: Labs reviewed by me, Image(s) reviewed by me Assessment/Plan Assessment/Plan Impression: -severe septic shock -pneumoperitoneum secondary to perforated gastric ulcer -acute kidney injury, hemodynamically mediated, probable VMN -acute hypoxic respiratory failure -shock liver -nicotine dependence -history of CVA -right upper extremity DVT -multifocal pneumonia, probable Gram-positive/Gram-negative etiology -anemia secondary to nutrition, renal failure -bilateral pleural effusions Plan: Events: Patient had spontaneous breathing trial yesterday. Continues to be encephalopathic. Patient with increasing white blood cell count, attempt. Cultures thus far negative. Triple-lumen IJ removed yesterday. We will exchange Barrios catheter today. Staff continues to stop tube feeding despite patient having positive bowel movements. We will attempt to try intermittent feedings to achieve caloric goal for patient. -continue tube feeding, 6 hours on, 4 hours off -Protonix 40 mg IV twice a day -further recommendations per surgical consultation -antibiotic therapy: Zosyn, Zyvox -continue Bumex drip. Nephrology recommendations appreciated -continue anticoagulation with Lovenox. -repeat labs, chest x-ray, ABG in a.m. -Discussed plan of care with . All questions answered. Critical care time spent with patient discussing and formulating plan of care: 90 minutes. This does not include time spent performing procedures. This medical document was created using an electronic medical record system with [employer] system. Although this document has been carefully reviewed, there may still be some phonetic and typographical errors. These areas are purely typographical due to imperfections of the software programs, and do not reflect any compromise in the patient's medical care. Plan discussed with: Patient, Other (RN) My Orders Orders - CHEYENNE PIKE AUT[employer]IPER Procedure Category Date Status Time Abg W/ Co-Ox RT 10/24/24 Logged 05:16 Linezolid 600mg/300ml PHA 10/24/24 In Process (Zyvox) 10:00 Piperacillin-Tazob PHA 10/24/24 In Process 2.25gm (Zosyn 2.25gm) 16:00 Ok To Change Barrios ORDERS 10/24/24 Transmitted 08:03 Nutritional PHA 10/24/24 In Process Supplements (Nepro 09:15 Comprehensive LAB 10/25/24 Verified Metabolic Panel 05:00 Comprehensive LAB 10/26/24 Verified Metabolic Panel 05:00 Comprehensive LAB 10/27/24 Verified Metabolic Panel 05:00 Complete Blood Count LAB 10/25/24 Verified 05:00 Complete Blood Count LAB 10/26/24 Verified 05:00 Complete Blood Count LAB 10/27/24 Verified 05:00 Date of Service: Oct 24, 2024 Billing Provider: CHEYENNE PIKE NP Common Visit Codes: [id number] CARE 30-74 MIN CHEYENNE PIKE NP Oct 24, 2024 09:59
--- NOTE | 2024-10-24 11:43 | DVHPN2 ---
Progress Note Date Seen: Oct 24, 2024 Resident Creating Document: SKY DASH RESIDENT Has the PT tested + for MRSA If YES, has PT been informed?: No Medical Necessity Reason Pt with a Central, PICC or Fol: Yes The following are medically ne: Central Line, Gómez Catheter Reason for gómez catheter: Strict I&O Subjective Review of Systems The patient was seen and examined on the bedside. He is on mechanical ventilation with FiO2 30%, tidal volume 550, peep 5 and respiratory rate 18. .Patient is on CPAP trial today. Has low-grade fever for last couple of days, Tmax 100.8 and new blood culture revealed no growth in 24 hours of incubation. Objective vital signs Vital Sign Date Time Temp Pulse Resp B/P (MAP) Pulse Ox O2 Delivery O2 Flow Rate FiO2 10/24/24 11:23 120 26 142/85 (104) 100 30 10/24/24 10:00 99.9 99.9 10/24/24 10:00 Mechanical Ventilator+ Total Intake and Output 10/23/24 10/23/24 10/24/24 15:00 23:00 07:00 Intake Total 150 ml 150 ml 230 ml Output Total 580 ml 377 ml Balance 150 ml -430 ml -147 ml medications Current Medications Medications Dose Ordered Sig/Wally Route Start Time Stop Time Status Last Admin Dose Admin Fentanyl Citrate 250 ml @ 2.5 mls/hr Q24H IV 10/04/24 09:45 10/22/24 00:32 22.5 MLS/HR Ondansetron HCl 4 mg Q4HP PRN IV 10/04/24 11:45 Morphine Sulfate 2 mg Q4HPRN PRN IV 10/04/24 11:45 Cancel Nitroglycerin 0.4 mg Q5MINP PRN SL 10/04/24 11:45 Morphine Sulfate 2 mg Q30M PRN IV 10/04/24 11:45 Cancel Lorazepam 50 mg/ Sodium Chloride 50 ml @ 1 mls/hr Q24H IV 10/04/24 18:15 Cancel Midazolam HCl 50 ml @ 1 mls/hr Q24H IV 10/04/24 18:30 10/22/24 00:31 6 MLS/HR Amino Acids 0 ml @ 0 mls/hr PER PHARMACY IV 10/05/24 14:30 UNV Diagnostic Test (Pha) 1 strip Q6HR 10/05/24 18:00 10/24/24 05:44 1 STRIP Insulin Human Regular FOLLOW SLIDING SCALE Q6HR SC 10/05/24 18:00 10/19/24 11:00 2 UNITS Dextrose 50 ml UD IV 10/05/24 14:45 Meropenem 50 ml @ 17 mls/hr Q12HR IV 10/07/24 10:00 UNV Labetalol HCl 10 mg Q2HPRN PRN IV 10/08/24 09:30 Propofol 100 ml @ 2.181 mls/ hr Q24H IV 10/10/24 10:30 10/19/24 18:02 4.3623 MLS/HR Pantoprazole Sodium 40 mg DAILY IV 10/12/24 10:00 10/24/24 09:45 40 MG Levalbuterol HCl 0.625 mg Q6HR NEB 10/13/24 12:00 10/24/24 11:22 0.625 MG Ipratropium [place] 0.5 mg Q6HR NEB 10/13/24 12:00 10/24/24 11:23 0.5 MG Norepinephrine Bitartrate 32 mg/ Sodium Chloride 250 ml @ 0.938 mls/ hr Q24H IV 10/14/24 10:15 10/21/24 14:56 0.938 MLS/HR Epoetin Roger-epbx 10,000 unit MWF [place] 10/19/24 17:00 10/24/24 11:20 10,000 UNIT Enoxaparin Sodium 70 mg DAILY SC 10/21/24 10:00 10/24/24 09:46 70 MG Bumetanide 1 mg DAILY IV 10/22/24 10:00 10/24/24 09:45 1 MG Morphine Sulfate 2 mg Q4HPRN PRN IV 10/21/24 11:30 Morphine Sulfate 2 mg Q30M PRN IV 10/21/24 11:30 Metoclopramide HCl 10 mg DAILY GT 10/22/24 10:00 10/24/24 09:45 10 MG Nicardipine/ Sodium Chloride 200 ml @ 50 mls/hr Q4H IV 10/22/24 08:45 10/22/24 08:47 50 MLS/HR Metoprolol Tartrate 25 mg BID PO 10/22/24 10:00 10/24/24 09:46 25 MG Acetaminophen 650 mg Q6HP PRN GT 10/22/24 09:00 10/24/24 01:45 650 MG Linezolid 300 ml @ 150 mls/hr Q12HR IV 10/24/24 10:00 10/24/24 09:45 150 MLS/HR Piperacillin Sod/ Tazobactam Sod 50 ml @ 12.5 mls/hr Q8H IV 10/24/24 16:00 Enteral Nutritional Formula 1,000 ml 30ML/HR GT 10/24/24 09:15 10/24/24 09:46 1,000 ML Potassium Chloride 100 ml @ 50 mls/hr Q2H IV 10/24/24 10:15 10/24/24 14:14 Examination Examination General: RASS -2, febrile, mucosae are moist Cardiovascular: Normal S1 and S2. No murmurs, gallops or rubs Respiratory: Mechanically assisted ventilation, equal bilateral airway entree. Clear lung sounds on auscultation Abdomen: Soft, nontender, no organomegaly, normal bowel sounds MSK/skin: Mobilization of limbs cannot be evaluated. Skin is dry and warm. Neurological: Orientation cannot be assessed. No apparent motor no sensitive deficits. Pupils are isocoric and reactive laboratory and microbiology Laboratory Tests 10/24/24 03:19 Test 10/24/24 03:19 Range/Units Serum Glucose 125 H 74-106 mg/dL Microbiology Date/Time Source Procedure Growth Status 10/23/24 09:50 Voided Urine Urine Culture - Preliminary Resulted 10/23/24 09:50 Blood Blood Culture - Preliminary NO GROWTH AFTER 24 HOURS OF INCUBATION. Resulted 10/18/24 09:21 Pleural Fluid Gram Stain - Final Resulted 10/18/24 09:21 Pleural Fluid Body Fluid Culture - Preliminary Resulted 10/16/24 12:05 Bronchial Washings Gram Stain - Final Complete 10/16/24 12:05 Bronchial Washings Respiratory Culture - Final Complete 10/04/24 17:10 Nose MRSA Screen - Final Complete Labs and/or images reviewed: Labs reviewed by me, Image(s) reviewed by me Problem List/Assessment/Plan Problem List/Assessment/Plan Assessment/Plan Acute kidney injury likely ATN, FeNa ,> 2% requiring intermittent hemodialysis Acute respiratory failure, patient intubated on ventilator Hemodynamic shock acute blood loss anemia Perforated gastric ulcer status post surgery 10/04 Hyponatremia likely due to volume overload Pneumonia Sepsis Hypomagnesemia Hypertensive urgency Empyema status post right chest tube Acute blood loss anemia status post PRBC Recommendations Hemodialysis yesterday Epogen 35575 subQ 3 times weekly Gómez catheter Strict I&Os Increased Urine output and have negative balance IV Bumex 1 mg daily IV albumin 25%, 100 cc during dialysis Vasopressor as needed for dialysis support IV nicardipine drip as per primary IV antibiotic Electrolytes replacement We will continue to follow up Critical care spent time 41 minutes Plan discussed with Dr. Acevedo Plan discussed with: Other (RN) My Orders My Orders Orders - SKY DASH RESIDENT Procedure Category Date Status Time Potassium Chl PHA 10/24/24 In Process 20meq/100ml 10:15 Dietary Evaluation Review Comments: 1. Continue TPN to meet at least 75% estimated needs 2. Continue current POC Expected Outcomes/Goals: FU 2-3 days to meet adequate energy & protein within 7 days of NPO Protein Calorie Malnutrition: Severe (rn) CC Plasma Assessment Blood Product Administration S: [id number] SKY DASH RESIDENT Oct 24, 2024 11:43
[2024-10-24] MEDS: POTASSIUM CHL 20MEQ/100ML 100 ML IV SCH (12:18)
[2024-10-24] MEDS: PIPERACILLIN-TAZOB 2.25GM 50 ML IV SCH (15:59)
--- NOTE | 2024-10-24 16:00 | DVH ---
CT HEAD WITHOUT CONTRAST Indication: RULE OUT CVA EXAM DATE: 10/24/2024 03:31 PM COMPARISON: CT HEAD WITHOUT CONTRAST on DOS: 10/04/24 TECHNIQUE: CT of the head without intravenous contrast. RADIATION DOSE: CTDIvol: 48.3 mGy, DLP: 862 mGy*cm FINDINGS: There is no intracranial hemorrhage. There is no extra-axial fluid, mass, mass effect or midline shif t. The ventricles are midline and normal in size. Basilar cisterns are patent. [id number] periv entricular and subcortical white matter chronic microvascular ischemic changes. Old bilateral basal g anglia lacunar infarcts. Old bilateral lopes radiata infarcts. There are small bilateral mastoid effusions.. Imaged portion of the orbits are unremarkable. IMPRESSION: 1. No intracranial hemorrhage or mass effect. 2. Mrla-lz-pbygnzmh chronic microvascular ischemic changes. 3. Old bilateral basal ganglia lacunar infarcts. 4. Small bilateral mastoid effusions.
--- NOTE | 2024-10-24 20:00 | DVH ---
CLINICAL HISTORY: abscess, cholecystostomy, increased GI residual TECHNIQUE: CT of the abdomen and pelvis was performed without intravenous contrast. This exam was per formed according to our departmental dose optimization program. Up-to-date CT equipment and radiation dose reduction techniques are utilized as appropriate. CTDI: 8.11 DLP: 435.17 WID: COMPARISON: Report from CT CT AB PEL WITH ORAL CON ONLY on DOS: 10/17/24, CT chest abdomen pelvis fro m 10/14/2024 FINDINGS: Lower Thorax: Since 10/14/2024, there has been placement of a right posterolateral approach pleural d rain terminating along the basilar lateral right major fissure. Moderate bilateral pleural effusions. There is a small basilar left pneumothorax. There are small to moderate dependent consolidations wit h air bronchograms in the bilateral lower lobes. Since 10/14/2024, Improvement in mixed predominately ground-glass opacities in the lung bases. Normal-sized heart. Liver and Biliary system: Normal-size liver. There Is a percutaneous cholecystostomy tube in the gall bladder which is normal caliber. No biliary ductal dilatation. Spleen: Unremarkable. Adrenal Glands and Kidneys: Normal adrenal glands. No hydronephrosis or nephrolithiasis. Pancreas and Retroperitoneum: Grossly normal pancreas. Mildly prominent predominantly normal-sized re troperitoneal lymph nodes. Aorta and Major Vessels: Aortoiliac vessels are normal in caliber with mild calcified atherosclerotic plaque. There is a right-sided femoral arterial catheter entering the right common femoral artery an d terminating in the right external iliac artery. There is a left-sided femoral central venous cathet er which terminates in the left common iliac vein. Bowel, Mesentery and Peritoneal space: There is contrast within the colon. Normal caliber small and l arge bowel. Normal appendix. There is a gastric tube terminating in the body of the stomach. There is mild distal colonic diverticulosis. There is no free air or loculated fluid collection. There is mil d ascites. Pelvis: There is mild prostatomegaly. There is a Barrios catheter in the urinary bladder. There is no p elvic lymphadenopathy. There is presacral edema. Abdominal wall and Osseous Structures: Minor lower thoracic and lumbar spondylosis. There is no destr uctive osseous lesion. There is mild body wall edema. Midline laparotomy. IMPRESSION: 1. Small basilar left pneumothorax. 2. Since 10/14/2024, placement of a right posterolateral approach pleural drain terminating in the ba silar lateral right major fissure. 3. Moderate bilateral pleural effusions and small to moderate dependent bilateral lower lobe consolid ations which is likely atelectasis, though pneumonia could contribute to this appearance. 4. Improvement in mixed predominantly ground-glass opacities in the lung bases since 10/14/2024 which could be improvement in atypical infection or pulmonary edema. 5. Cholecystostomy tube in place in a normal caliber gallbladder. 6. Mild ascites. No loculated fluid collection or free air in the abdomen. 7. Right-sided femoral arterial catheter and left-sided femoral central venous catheter in place. 8. Mild prostatomegaly. 9. Barrios catheter and gastric tubes are in place. Critical Result: Small basilar left pneumothorax. Findings discussed with JASPER Ritchie at 10/24/2024 07:56 PM, and acknowledged receipt and understanding of the findings. ..
--- NOTE | 2024-10-24 21:45 | DVH ---
NON-CONTRAST CHEST COMPUTERIZED TOMOGRAPHY REASON FOR STUDY: Left pneumothorax COMPARISON: CT CHEST WITHOUT CONTRAST on DOS: 10/18/24, US CHEST ULTRASOUND on DOS: 10/13/24 TECHNIQUE: The exam was performed on a multidetector spiral scanner. Spiral scans were acquired throu gh the chest. 2-D coronal and sagittal reformatted images were provided. Automated exposure control w as used. RADIATION DOSE: CTDI: 7 mGy DLP: 305 mGy-cm FINDINGS: There is trace anteromedial left pneumothorax. There is mild 2 moderate paraseptal and ce ntrilobular emphysema. There is moderate bilateral pleural fluid. There is mild residual ground-glass airspace disease in the left upper lobe, significantly decreased compared with the prior CT. There is partial consolidation of dependent portions of bilateral lower lobes, possibly atelectasis. There is a pigtail right pleural drain terminating within the major fissure. No pulmonary nodule or mass i s identified within the limitations of this study. No acute osseous abnormality is identified. There is an endotracheal tube terminating in the mid trachea. There is an enteric tube terminating within t he stomach. There is a percutaneous cholecystostomy tube. IMPRESSION: Trace left pneumothorax. Moderate bilateral pleural fluid. Mild residual left upper lobe ground-glass opacity, likely pulmonary edema, significantly improved. Bilateral dependent partial consolidation o f the lower lobes, likely compressive atelectasis.
--- NOTE | 2024-10-24 23:50 | DVHPN2 ---
Progress Note - Dictate Date Seen: Oct 24, 2024 Has the PT tested + for MRSA If YES, has PT been informed?: No Medical Necessity Reason Pt with a Central, PICC or Fol: Yes The following are medically ne: Central Line, Gómez Catheter Reason for gómez catheter: Strict I&O Subjective Patient seen and examined at bedside. intubated on mechanical ventilator. Overnight events reviewed. vital signs Vital Sign Date Time Temp Pulse Resp B/P (MAP) Pulse Ox O2 Delivery O2 Flow Rate FiO2 10/24/24 22:42 133 28 154/96 (115) 100 30 10/24/24 22:00 Mechanical Ventilator+ 10/24/24 21:26 100.4 100.4 Total Intake and Output 10/23/24 10/23/24 10/24/24 15:00 23:00 07:00 Intake Total 150 ml 150 ml 230 ml Output Total 580 ml 377 ml Balance 150 ml -430 ml -147 ml medications Current Medications Medications Dose Ordered Sig/Wally Route Start Time Stop Time Status Last Admin Dose Admin Fentanyl Citrate 250 ml @ 2.5 mls/hr Q24H IV 10/04/24 09:45 10/22/24 00:32 22.5 MLS/HR Ondansetron HCl 4 mg Q4HP PRN IV 10/04/24 11:45 Morphine Sulfate 2 mg Q4HPRN PRN IV 10/04/24 11:45 Cancel Nitroglycerin 0.4 mg Q5MINP PRN SL 10/04/24 11:45 Morphine Sulfate 2 mg Q30M PRN IV 10/04/24 11:45 Cancel Lorazepam 50 mg/ Sodium Chloride 50 ml @ 1 mls/hr Q24H IV 10/04/24 18:15 Cancel Midazolam HCl 50 ml @ 1 mls/hr Q24H IV 10/04/24 18:30 10/22/24 00:31 6 MLS/HR Amino Acids 0 ml @ 0 mls/hr PER PHARMACY IV 10/05/24 14:30 UNV Diagnostic Test (Pha) 1 strip Q6HR 10/05/24 18:00 10/24/24 17:16 1 STRIP Insulin Human Regular FOLLOW SLIDING SCALE Q6HR SC 10/05/24 18:00 10/24/24 11:48 2 UNITS Dextrose 50 ml UD IV 10/05/24 14:45 Meropenem 50 ml @ 17 mls/hr Q12HR IV 10/07/24 10:00 UNV Labetalol HCl 10 mg Q2HPRN PRN IV 10/08/24 09:30 Propofol 100 ml @ 2.181 mls/ hr Q24H IV 10/10/24 10:30 10/19/24 18:02 4.3623 MLS/HR Pantoprazole Sodium 40 mg DAILY IV 10/12/24 10:00 10/24/24 09:45 40 MG Levalbuterol HCl 0.625 mg Q6HR NEB 10/13/24 12:00 10/24/24 18:15 0.625 MG Ipratropium [place] 0.5 mg Q6HR NEB 10/13/24 12:00 10/24/24 18:15 0.5 MG Norepinephrine Bitartrate 32 mg/ Sodium Chloride 250 ml @ 0.938 mls/ hr Q24H IV 10/14/24 10:15 10/21/24 14:56 0.938 MLS/HR Epoetin Roger-epbx 10,000 unit MWF SC 10/19/24 17:00 10/24/24 11:20 10,000 UNIT Enoxaparin Sodium 70 mg DAILY SC 10/21/24 10:00 10/24/24 09:46 70 MG Bumetanide 1 mg DAILY IV 10/22/24 10:00 10/24/24 09:45 1 MG Morphine Sulfate 2 mg Q4HPRN PRN IV 10/21/24 11:30 Morphine Sulfate 2 mg Q30M PRN IV 10/21/24 11:30 Metoclopramide HCl 10 mg DAILY GT 10/22/24 10:00 10/24/24 09:45 10 MG Nicardipine/ Sodium Chloride 200 ml @ 50 mls/hr Q4H IV 10/22/24 08:45 10/22/24 08:47 50 MLS/HR Metoprolol Tartrate 25 mg BID PO 10/22/24 10:00 10/24/24 22:32 25 MG Acetaminophen 650 mg Q6HP PRN GT 10/22/24 09:00 10/24/24 01:45 650 MG Linezolid 300 ml @ 150 mls/hr Q12HR IV 10/24/24 10:00 10/24/24 22:32 150 MLS/HR Piperacillin Sod/ Tazobactam Sod 50 ml @ 12.5 mls/hr Q8H IV 10/24/24 16:00 10/24/24 15:59 12.5 MLS/HR Enteral Nutritional Formula 1,000 ml 30ML/HR GT 10/24/24 09:15 10/24/24 09:46 1,000 ML objective Gen.: Patient lying in bed in medical ICU. Intubated on mechanical ventilator. Head: Normocephalic, atraumatic. Eyes: PERRLA. Ears: Normal external anatomy. Throat: Endotracheal tube and orogastric tube in place. Neck: Supple, trachea midline. Chest: Transmitted breath sounds bilaterally. Decreased air entry bilaterally. No wheezing. Bibasilar crackles. Cardiovascular: Positive S1, positive S2. Regular rate and rhythm. Abdomen: Positive bowel sounds in all 4 quadrants. Soft, nontender, nondistended. : Gómez in place. Normal external genitalia. Rectal: Deferred. Skin: Warm, dry. Intact. Extremities: 2+ radial pulses bilaterally. No lower extremity edema. Neuro: Off sedation laboratory and microbiology Laboratory Tests 10/24/24 03:19 Test 10/24/24 03:19 Range/Units Serum Glucose 125 H 74-106 mg/dL Assessment/Plan Impression: Acute hypoxic respiratory failure On mechanical ventilator Septic shock Perforated viscus Nicotine dependence Events: Vent support On AC mode; RR 18, VT 550, PEEP 5, Fio2 30% Remains off sedation Elevated temperature - cooling measures. Tolerated CPAP Awaiting for mentation to improve for extubation ABG notable for alkalemia. CT chest reviewed, demonstrates trace left pneumothorax. Moderate bilateral pleural fluid. Mild residual left upper lobe ground-glass opacity, likely pulmonary edema, significantly improved. Bilateral dependent partial consolidation of the lower lobes, likely compressive atelectasis.. Abdomen-pelvis CT demonstrated small basilar left pneumothorax. Head CT reviewed; No intracranial hemorrhage or mass effect. Old bilateral basal ganglia lacunar infarcts. Off pressors, hemodynamically stable. Chest tube in place Monitor output No air leak Blood pressure control Bumex drip for diuresis. Monitor renal function Monitor electrolytes. Supplement as necessary. Monitor ins and outs. Continue antibiotics. Follow up cultures Continue bronchodilators Tube feeds for nutritional support Monitor hemoglobin Monitor KWAN + trish drain output Protonix for GI prophylaxis Therapeutic Lovenox for DVT prophylaxis Labs and imaging reviewed. Rest of plan as noted below. Plan: s/p intubation on mechanical ventilator. On AC mode; RR 18, VT 550, PEEP 5, Fio2 30% Titrate FIO2 to keep O2 saturation above 90%. VAP bundle. Daily ABG and CXR while intubated Off sedation Continue antibiotics. Continue bronchodilators Pressors if necessary for hemodynamic support Titrate to keep mean arterial pressure greater than 65 mmHg. Diurese Monitor renal function Monitor electrolytes. Supplement as necessary. Monitor ins and outs. GI prophylaxis. DVT prophylaxis. Prognosis: Poor given patient's multiple co-morbidities. Condition: Critical Rest of plan per hospitalist and other consultants. A total of 35 minutes of critical care time was spent reviewing the patient record, examining the patient, making a diagnostic and therapeutic plan, discussing this plan with the medical personnel, following up on diagnostic studies and following the patient for clinical stability excluding any and all procedures. At least 50% of this time was spent in direct, [id number] contact. Thank you, NIDIA Caldera, for allowing me to participate in this patient's care. Further recommendations will depend on the patient's clinical course. Please do not hesitate to contact me if you have any questions or concerns. This medical document was created using an electronic medical record system with [employer] computerized dictation system. Although these documentations are being carefully reviewed, there may still be some phonetic and typographical changes. The errors are purely typographical, due to imperfection on the software program, and do not reflect any compromise in the patient's medical care. Dietary Evaluation Review Comments: 1. Continue TPN to meet at least 75% estimated needs 2. Continue current POC Expected Outcomes/Goals: FU 2-3 days to meet adequate energy & protein within 7 days of NPO Protein Calorie Malnutrition: Severe (rn) Plan discussed with: Other (JASPER Carvalho) Critical Care Time(min): 35 CC Plasma Assessment Blood Product Administration S: [id number] ARIE LOPEZ MD Oct 24, 2024 23:50
[2024-10-25] VITALS (119 sets, daily range): BP systolic 83–208; BP diastolic 46–90; PULSE 63–126; RESP 21–30; TEMP 99.1–100.4; O2SAT 87–100
[2024-10-25] MEDS: NOREPINEPHRINE BITARTRATE 0 ML IV ONE (04:05)
[2024-10-25 04:18] LABS: Hematocrit 22.7 % (41.0-53.0); Hemoglobin 7.7 g/dL (13.5-17.5); Mean Corpuscular Hemoglobin 28.9 pg (28.0-32.0); Mean Corpuscular Volume 85.6 fL (80.0-100.0)
[2024-10-25 04:34] LABS: Albumin 3.6 g/dL (3.2-4.8); Anion Gap 18 (5-15); BUN/Creatinine Ratio 20.0 (10.0-20.0); Calcium 9.5 mg/dL (8.7-10.4); Carbon Dioxide 26 mmol/L (20-31); Potassium 4.5 mmol/L (3.5-5.1); Sodium 138 mmol/L (136-145); Total Protein 7.5 g/dL (5.7-8.2)
[2024-10-25 04:36] LABS: Alkaline Phosphatase 247 U/L (46-116); Chloride 94 mmol/L (98-107); Glucose 132 mg/dL (74-106)
[2024-10-25 04:37] LABS: Alanine Aminotransferase 129 U/L (7-40); Bilirubin, Total 2.2 mg/dL (0.2-1.0); Blood Urea Nitrogen 105 mg/dL (9-23)
[2024-10-25 04:53] LABS: Total Cells Counted 100.0 (100)
--- NOTE | 2024-10-25 05:33 | DVH ---
CHEST RADIOGRAPH Indication: pna Technique: Frontal view of the chest. Comparison: XY CHEST XRAY 1 VIEW on DOS: 10/24/24, XY CHEST PORTABLE on DOS: 10/22/24, XY CHEST PORTABLE on DOS: 10/21/24, XY CHEST PORTABLE on DOS: 10/20/24, XY CHEST PORTABLE on DOS: 10/19/24, XY CHEST XRAY 1 V IEW on DOS: 10/24/24 FINDINGS: LUNGS AND PLEURAL SPACES: Left basilar atelectasis or pneumonia. HEART: Unremarkable. No cardiomegaly. MEDIASTINUM: Unremarkable. Normal mediastinal contour. BONES/JOINTS: Unremarkable. No acute fracture. TUBES, LINES AND DEVICES: The endotracheal tube (ETT) is in satisfactory position. Left internal j ugular central venous catheter tip in the superior vena cava. Right-sided pigtail chest tube. No pn eumothorax. IMPRESSION: Left basilar atelectasis or pneumonia.
[2024-10-25 06:59] LABS: Base Excess 2.9 mmol/L (-2.0-3.0)
[2024-10-25] MEDS: HEPARIN SODIUM (PORCINE) 5000 UNITS/ML 1ML VIAL SC SCH (07:45)
--- NOTE | 2024-10-25 13:51 | DVHPN2 ---
Progress Note Date Seen: Oct 25, 2024 Has the PT tested + for MRSA If YES, has PT been informed?: No Medical Necessity Reason Pt with a Central, PICC or Fol: Yes The following are medically ne: Central Line, Gómez Catheter Reason for gómez catheter: Strict I&O Subjective Review of Systems Pt intubated on mechanical ventilation Objective vital signs Vital Sign Date Time Temp Pulse Resp B/P (MAP) Pulse Ox O2 Delivery O2 Flow Rate FiO2 10/25/24 13:39 118 10/25/24 13:39 30 10/25/24 13:39 25 99 Mechanical Ventilator+ 10/25/24 13:30 99.5 117/69 (85) 99.5 114/63 (80) Total Intake and Output 10/24/24 10/24/24 10/25/24 15:00 23:00 07:00 Intake Total 550 ml 170 ml 400 ml Output Total 360 ml 410 ml Balance 550 ml -190 ml -10 ml medications Current Medications Medications Dose Ordered Sig/Wally Route Start Time Stop Time Status Last Admin Dose Admin Fentanyl Citrate 250 ml @ 2.5 mls/hr Q24H IV 10/04/24 09:45 10/22/24 00:32 22.5 MLS/HR Ondansetron HCl 4 mg Q4HP PRN IV 10/04/24 11:45 Morphine Sulfate 2 mg Q4HPRN PRN IV 10/04/24 11:45 Cancel Nitroglycerin 0.4 mg Q5MINP PRN SL 10/04/24 11:45 Morphine Sulfate 2 mg Q30M PRN IV 10/04/24 11:45 Cancel Lorazepam 50 mg/ Sodium Chloride 50 ml @ 1 mls/hr Q24H IV 10/04/24 18:15 Cancel Midazolam HCl 50 ml @ 1 mls/hr Q24H IV 10/04/24 18:30 10/22/24 00:31 6 MLS/HR Amino Acids 0 ml @ 0 mls/hr PER PHARMACY IV 10/05/24 14:30 UNV Diagnostic Test (Pha) 1 strip Q6HR 10/05/24 18:00 10/25/24 11:04 1 STRIP Insulin Human Regular FOLLOW SLIDING SCALE Q6HR SC 10/05/24 18:00 10/25/24 11:04 2 UNITS Dextrose 50 ml UD IV 10/05/24 14:45 Meropenem 50 ml @ 17 mls/hr Q12HR IV 10/07/24 10:00 UNV Labetalol HCl 10 mg Q2HPRN PRN IV 10/08/24 09:30 Propofol 100 ml @ 2.181 mls/ hr Q24H IV 10/10/24 10:30 10/19/24 18:02 4.3623 MLS/HR Pantoprazole Sodium 40 mg DAILY IV 10/12/24 10:00 10/25/24 07:46 40 MG Levalbuterol HCl 0.625 mg Q6HR NEB 10/13/24 12:00 10/25/24 12:07 0.625 MG Ipratropium [place] 0.5 mg Q6HR NEB 10/13/24 12:00 10/25/24 12:07 0.5 MG Norepinephrine Bitartrate 32 mg/ Sodium Chloride 250 ml @ 0.938 mls/ hr Q24H IV 10/14/24 10:15 10/21/24 14:56 0.938 MLS/HR Epoetin Roger-epbx 10,000 unit MWF SC 10/19/24 17:00 10/24/24 11:20 10,000 UNIT Bumetanide 1 mg DAILY IV 10/22/24 10:00 10/25/24 07:46 1 MG Morphine Sulfate 2 mg Q4HPRN PRN IV 10/21/24 11:30 Morphine Sulfate 2 mg Q30M PRN IV 10/21/24 11:30 Metoclopramide HCl 10 mg DAILY GT 10/22/24 10:00 10/25/24 07:45 10 MG Nicardipine/ Sodium Chloride 200 ml @ 50 mls/hr Q4H IV 10/22/24 08:45 10/22/24 08:47 50 MLS/HR Metoprolol Tartrate 25 mg BID PO 10/22/24 10:00 10/25/24 07:45 25 MG Acetaminophen 650 mg Q6HP PRN GT 10/22/24 09:00 10/24/24 01:45 650 MG Linezolid 300 ml @ 150 mls/hr Q12HR IV 10/24/24 10:00 10/25/24 09:11 150 MLS/HR Piperacillin Sod/ Tazobactam Sod 50 ml @ 12.5 mls/hr Q8H IV 10/24/24 16:00 10/25/24 07:46 12.5 MLS/HR Enteral Nutritional Formula 1,000 ml 30ML/HR GT 10/24/24 09:15 10/24/24 09:46 1,000 ML Heparin Sodium (Porcine) 5,000 units Q12HR SC 10/25/24 10:00 10/25/24 07:45 5,000 UNITS Examination Gen: NAD, intubated on mechanical ventilation Lungs: Decreased bilateral air entry Heart: RRR, normal S1 and S2 Ext: + trace edema laboratory and microbiology Laboratory Tests 10/25/24 03:30 Test 10/25/24 03:30 Range/Units Serum Glucose 132 H 74-106 mg/dL Microbiology Date/Time Source Procedure Growth Status 10/23/24 09:50 Voided Urine Urine Culture - Final Complete 10/23/24 09:50 Blood Blood Culture - Preliminary NO GROWTH AFTER 48 HOURS OF INCUBATION. Resulted 10/18/24 09:21 Pleural Fluid Gram Stain - Final Complete 10/18/24 09:21 Pleural Fluid Body Fluid Culture - Final Complete 10/16/24 12:05 Bronchial Washings Gram Stain - Final Complete 10/16/24 12:05 Bronchial Washings Respiratory Culture - Final Complete 10/04/24 17:10 Nose MRSA Screen - Final Complete Labs and/or images reviewed: Labs reviewed by me Problem List/Assessment/Plan Problem List/Assessment/Plan IMP Acute kidney injury likely ATN, FeNa ,> 2% requiring intermittent hemodialysis Acute respiratory failure, patient intubated on ventilator Hemodynamic shock acute blood loss anemia Perforated gastric ulcer status post surgery 10/04 Hyponatremia likely due to volume overload- resolved Pneumonia- on IV abx Sepsis Hypomagnesemia Empyema status post right chest tube REC HD tentatively 10/26 Chemistry panel Continue Epogen 01760 subQ 3 times weekly Strict I&Os We will continue to follow Case discussed with Dr Uriel Acevedo Plan discussed with: Other Dietary Evaluation Review Comments: 1. Continue TPN to meet at least 75% estimated needs 2. Continue current POC Expected Outcomes/Goals: FU 2-3 days to meet adequate energy & protein within 7 days of NPO Protein Calorie Malnutrition: Severe (rn) CC Plasma Assessment Blood Product Administration S: [id number] RAY LEMOS [employer] ATTENDANT Oct 25, 2024 13:51
[2024-10-25 15:10] LABS: Hematocrit 20.3 % (41.0-53.0)
[2024-10-25 15:14] LABS: Hemoglobin 6.8 g/dL (13.5-17.5)
--- NOTE | 2024-10-25 19:19 | DVHPN2 ---
Progress Note - Dictate Date Seen: Oct 25, 2024 Has the PT tested + for MRSA If YES, has PT been informed?: No Medical Necessity Reason Pt with a Central, PICC or Fol: Yes The following are medically ne: Central Line, Gómez Catheter Reason for gómez catheter: Strict I&O Subjective Patient seen and examined at bedside. intubated on mechanical ventilator. Overnight events reviewed. vital signs Vital Sign Date Time Temp Pulse Resp B/P (MAP) Pulse Ox O2 Delivery O2 Flow Rate FiO2 10/25/24 19:00 121 23 121/55 (77) 100 105/60 (75) 10/25/24 18:36 30 10/25/24 17:55 99.9 99.9 10/25/24 17:35 Mechanical Ventilator+ Total Intake and Output 10/24/24 10/24/24 10/25/24 15:00 23:00 07:00 Intake Total 550 ml 170 ml 400 ml Output Total 360 ml 410 ml Balance 550 ml -190 ml -10 ml medications Current Medications Medications Dose Ordered Sig/Wally Route Start Time Stop Time Status Last Admin Dose Admin Fentanyl Citrate 250 ml @ 2.5 mls/hr Q24H IV 10/04/24 09:45 10/22/24 00:32 22.5 MLS/HR Ondansetron HCl 4 mg Q4HP PRN IV 10/04/24 11:45 Morphine Sulfate 2 mg Q4HPRN PRN IV 10/04/24 11:45 Cancel Nitroglycerin 0.4 mg Q5MINP PRN SL 10/04/24 11:45 Morphine Sulfate 2 mg Q30M PRN IV 10/04/24 11:45 Cancel Lorazepam 50 mg/ Sodium Chloride 50 ml @ 1 mls/hr Q24H IV 10/04/24 18:15 Cancel Midazolam HCl 50 ml @ 1 mls/hr Q24H IV 10/04/24 18:30 10/22/24 00:31 6 MLS/HR Amino Acids 0 ml @ 0 mls/hr PER PHARMACY IV 10/05/24 14:30 UNV Diagnostic Test (Pha) 1 strip Q6HR 10/05/24 18:00 10/25/24 16:46 1 STRIP Insulin Human Regular FOLLOW SLIDING SCALE Q6HR SC 10/05/24 18:00 10/25/24 11:04 2 UNITS Dextrose 50 ml UD IV 10/05/24 14:45 Meropenem 50 ml @ 17 mls/hr Q12HR IV 10/07/24 10:00 UNV Labetalol HCl 10 mg Q2HPRN PRN IV 10/08/24 09:30 Propofol 100 ml @ 2.181 mls/ hr Q24H IV 10/10/24 10:30 10/19/24 18:02 4.3623 MLS/HR Pantoprazole Sodium 40 mg DAILY IV 10/12/24 10:00 10/25/24 07:46 40 MG Levalbuterol HCl 0.625 mg Q6HR NEB 10/13/24 12:00 10/25/24 18:36 0.625 MG Ipratropium [place] 0.5 mg Q6HR NEB 10/13/24 12:00 10/25/24 18:36 0.5 MG Norepinephrine Bitartrate 32 mg/ Sodium Chloride 250 ml @ 0.938 mls/ hr Q24H IV 10/14/24 10:15 10/21/24 14:56 0.938 MLS/HR Epoetin Roger-epbx 10,000 unit MWF SC 10/19/24 17:00 10/24/24 11:20 10,000 UNIT Bumetanide 1 mg DAILY IV 10/22/24 10:00 10/25/24 07:46 1 MG Morphine Sulfate 2 mg Q4HPRN PRN IV 10/21/24 11:30 Morphine Sulfate 2 mg Q30M PRN IV 10/21/24 11:30 Metoclopramide HCl 10 mg DAILY GT 10/22/24 10:00 10/25/24 07:45 10 MG Nicardipine/ Sodium Chloride 200 ml @ 50 mls/hr Q4H IV 10/22/24 08:45 10/22/24 08:47 50 MLS/HR Metoprolol Tartrate 25 mg BID PO 10/22/24 10:00 10/25/24 07:45 25 MG Acetaminophen 650 mg Q6HP PRN GT 10/22/24 09:00 10/24/24 01:45 650 MG Linezolid 300 ml @ 150 mls/hr Q12HR IV 10/24/24 10:00 10/25/24 09:11 150 MLS/HR Piperacillin Sod/ Tazobactam Sod 50 ml @ 12.5 mls/hr Q8H IV 10/24/24 16:00 10/25/24 15:49 12.5 MLS/HR Enteral Nutritional Formula 1,000 ml 30ML/HR GT 10/24/24 09:15 10/24/24 09:46 1,000 ML objective Gen.: Patient lying in bed in medical ICU. Intubated on mechanical ventilator. Head: Normocephalic, atraumatic. Eyes: PERRLA. Ears: Normal external anatomy. Throat: Endotracheal tube and orogastric tube in place. Neck: Supple, trachea midline. Chest: Transmitted breath sounds bilaterally. Decreased air entry bilaterally. No wheezing. Bibasilar crackles. Cardiovascular: Positive S1, positive S2. Regular rate and rhythm. Abdomen: Positive bowel sounds in all 4 quadrants. Soft, nontender, nondistended. : Gómez in place. Normal external genitalia. Rectal: Deferred. Skin: Warm, dry. Intact. Extremities: 2+ radial pulses bilaterally. No lower extremity edema. Neuro: Off sedation laboratory and microbiology Laboratory Tests 10/25/24 14:35 10/25/24 03:30 Test 10/25/24 03:30 Range/Units Serum Glucose 132 H 74-106 mg/dL Assessment/Plan Impression: Acute hypoxic respiratory failure On mechanical ventilator Septic shock Perforated viscus Nicotine dependence Events: Vent support On AC mode; RR 18, VT 550, PEEP 5, Fio2 30% Remains off sedation GI consultation - tarry stools Coffee ground via NGT. Monitor hemoglobin - plan for 2 units PRBC. Chest tube output 10 ml CPAP trials Awaiting for mentation to improve ABG notable for alkalemia. CXR today demonstrates devices in place. Left basilar atelectasis or pneumonia. Off pressors, hemodynamically stable. Chest tube in place Monitor output No air leak Blood pressure control Bumex IV for diuresis. Monitor renal function Monitor electrolytes. Supplement as necessary. Monitor ins and outs. Continue antibiotics. Follow up cultures Continue bronchodilators Tube feeds for nutritional support Monitor hemoglobin Monitor KWAN + trish drain output Protonix for GI prophylaxis Therapeutic Lovenox for DVT prophylaxis CT chest reviewed, demonstrates trace left pneumothorax. Moderate bilateral pleural fluid. Mild residual left upper lobe ground-glass opacity, likely pulmonary edema, significantly improved. Bilateral dependent partial consolidation of the lower lobes, likely compressive atelectasis.. Abdomen-pelvis CT demonstrated small basilar left pneumothorax. Head CT reviewed; No intracranial hemorrhage or mass effect. Old bilateral basal ganglia lacunar infarcts. Labs and imaging reviewed. Rest of plan as noted below. Plan: s/p intubation on mechanical ventilator. On AC mode; RR 18, VT 550, PEEP 5, Fio2 30% Titrate FIO2 to keep O2 saturation above 90%. VAP bundle. Daily ABG and CXR while intubated Off sedation Continue antibiotics. Continue bronchodilators Pressors if necessary for hemodynamic support Titrate to keep mean arterial pressure greater than 65 mmHg. Diurese Monitor renal function Monitor electrolytes. Supplement as necessary. Monitor ins and outs. GI prophylaxis. DVT prophylaxis. Prognosis: Poor given patient's multiple co-morbidities. Condition: Critical Rest of plan per hospitalist and other consultants. A total of 35 minutes of critical care time was spent reviewing the patient record, examining the patient, making a diagnostic and therapeutic plan, discussing this plan with the medical personnel, following up on diagnostic studies and following the patient for clinical stability excluding any and all procedures. At least 50% of this time was spent in direct, [id number] contact. Thank you, NIDIA Caldera, for allowing me to participate in this patient's care. Further recommendations will depend on the patient's clinical course. Please do not hesitate to contact me if you have any questions or concerns. This medical document was created using an electronic medical record system with [employer] dictation system. Although these documentations are being carefully reviewed, there may still be some phonetic and typographical changes. The errors are purely typographical, due to imperfection on the software program, and do not reflect any compromise in the patient's medical care. Dietary Evaluation Review Comments: 1. Continue TPN to meet at least 75% estimated needs 2. Continue current POC Expected Outcomes/Goals: FU 2-3 days to meet adequate energy & protein within 7 days of NPO Protein Calorie Malnutrition: Severe (rn) Plan discussed with: Other (JASPER Kruger) Critical Care Time(min): 35 CC Plasma Assessment Blood Product Administration S: [id number] ARIE LOPEZ MD Oct 25, 2024 19:19
[2024-10-26] VITALS (116 sets, daily range): BP systolic 91–151; BP diastolic 31–85; PULSE 93–128; RESP 17–28; TEMP 98.8–99.5; O2SAT 92–100
[2024-10-26 04:18] LABS: Hemoglobin 9.4 g/dL (13.5-17.5); INR 1.29 (0.9-1.15); Partial Thromboplastin Time 27.3 SEC (24.5-34.5); Prothrombin Time 13.3 sec (9.3-11.8)
[2024-10-26 04:21] LABS: Hematocrit 27.4 % (41.0-53.0); Mean Corpuscular Hemoglobin 29.6 pg (28.0-32.0); Mean Corpuscular Volume 86.2 fL (80.0-100.0)
--- NOTE | 2024-10-26 05:59 | DVH ---
CHEST RADIOGRAPH Indication: pna Technique: Single frontal view of the chest was obtained COMPARISON: XY CHEST XRAY 1 VIEW on DOS: 10/25/24, XY CHEST XRAY 1 VIEW on DOS: 10/24/24, XY CHEST PORTAB LE on DOS: 10/22/24, XY CHEST PORTABLE on DOS: 10/21/24, XY CHEST PORTABLE on DOS: 10/20/24 FINDINGS: Lines and Tubes: Unchanged. Lungs: Mild opacity within the right lung base. No definite pleural effusion. No definite consolidati on. No pneumothorax. Cardiomediastinal contours: Unremarkable Bones: Unremarkable IMPRESSION: 1. Mild right lung base opacity without evidence of focal consolidation or pleural effusion. 2. No evidence of pneumothorax. 3. Lines and tubes unchanged.
[2024-10-26 06:15] LABS: Base Excess 1.1 mmol/L (-2.0-3.0)
[2024-10-26 07:21] LABS: Anisocytosis Slight; Macrocytosis Slight; Ovalocytes FEW; Polychromasia Slight; Total Cells Counted 100.0 (100)
[2024-10-26 07:45] LABS: Albumin 3.3 g/dL (3.2-4.8); Anion Gap 20 (5-15); BUN/Creatinine Ratio 23.0 (10.0-20.0); Calcium 8.8 mg/dL (8.7-10.4); Carbon Dioxide 25 mmol/L (20-31); Potassium 4.0 mmol/L (3.5-5.1); Sodium 137 mmol/L (136-145); Total Protein 7.1 g/dL (5.7-8.2)
[2024-10-26 07:46] LABS: Alanine Aminotransferase 229 U/L (7-40); Alkaline Phosphatase 173 U/L (46-116); Chloride 92 mmol/L (98-107); Glucose 116 mg/dL (74-106)
[2024-10-26 07:47] LABS: Bilirubin, Total 2.0 mg/dL (0.2-1.0); Blood Urea Nitrogen 145 mg/dL (9-23)
--- NOTE | 2024-10-26 11:18 | DVHPN2 ---
Progress Note Date Seen: Oct 26, 2024 Has the PT tested + for MRSA If YES, has PT been informed?: No Medical Necessity Reason Pt with a Central, PICC or Fol: Yes The following are medically ne: Central Line, Gómez Catheter Reason for gómez catheter: Strict I&O Objective vital signs Vital Sign Date Time Temp Pulse Resp B/P (MAP) Pulse Ox O2 Delivery O2 Flow Rate FiO2 10/26/24 11:05 121 22 122/67 (85) 100 30 10/26/24 09:36 Mechanical Ventilator+ 10/26/24 07:30 99.5 99.5 Total Intake and Output 10/25/24 10/25/24 10/26/24 15:00 23:00 07:00 Intake Total 1127.611 ml 204.690 ml Output Total 1240 ml 490 ml Balance -112.389 ml -285.310 ml medications Current Medications Medications Dose Ordered Sig/Wally Route Start Time Stop Time Status Last Admin Dose Admin Fentanyl Citrate 250 ml @ 2.5 mls/hr Q24H IV 10/04/24 09:45 10/22/24 00:32 22.5 MLS/HR Ondansetron HCl 4 mg Q4HP PRN IV 10/04/24 11:45 Morphine Sulfate 2 mg Q4HPRN PRN IV 10/04/24 11:45 Cancel Nitroglycerin 0.4 mg Q5MINP PRN SL 10/04/24 11:45 Morphine Sulfate 2 mg Q30M PRN IV 10/04/24 11:45 Cancel Lorazepam 50 mg/ Sodium Chloride 50 ml @ 1 mls/hr Q24H IV 10/04/24 18:15 Cancel Midazolam HCl 50 ml @ 1 mls/hr Q24H IV 10/04/24 18:30 10/22/24 00:31 6 MLS/HR Amino Acids 0 ml @ 0 mls/hr PER PHARMACY IV 10/05/24 14:30 UNV Diagnostic Test (Pha) 1 strip Q6HR 10/05/24 18:00 10/26/24 10:49 1 STRIP Insulin Human Regular FOLLOW SLIDING SCALE Q6HR SC 10/05/24 18:00 10/25/24 11:04 2 UNITS Dextrose 50 ml UD IV 10/05/24 14:45 Meropenem 50 ml @ 17 mls/hr Q12HR IV 10/07/24 10:00 UNV Labetalol HCl 10 mg Q2HPRN PRN IV 10/08/24 09:30 Propofol 100 ml @ 2.181 mls/ hr Q24H IV 10/10/24 10:30 10/19/24 18:02 4.3623 MLS/HR Pantoprazole Sodium 40 mg DAILY IV 10/12/24 10:00 10/26/24 07:57 40 MG Levalbuterol HCl 0.625 mg Q6HR NEB 10/13/24 12:00 10/26/24 11:05 0.625 MG Ipratropium [place] 0.5 mg Q6HR NEB 10/13/24 12:00 10/26/24 11:05 0.5 MG Norepinephrine Bitartrate 32 mg/ Sodium Chloride 250 ml @ 0.938 mls/ hr Q24H IV 10/14/24 10:15 10/25/24 19:15 0.938 MLS/HR Epoetin Roger-epbx 10,000 unit MWF SC 10/19/24 17:00 10/24/24 11:20 10,000 UNIT Bumetanide 1 mg DAILY IV 10/22/24 10:00 10/26/24 07:58 1 MG Morphine Sulfate 2 mg Q4HPRN PRN IV 10/21/24 11:30 Morphine Sulfate 2 mg Q30M PRN IV 10/21/24 11:30 Metoclopramide HCl 10 mg DAILY GT 10/22/24 10:00 10/26/24 07:58 10 MG Nicardipine/ Sodium Chloride 200 ml @ 50 mls/hr Q4H IV 10/22/24 08:45 10/22/24 08:47 50 MLS/HR Metoprolol Tartrate 25 mg BID PO 10/22/24 10:00 10/25/24 07:45 25 MG Acetaminophen 650 mg Q6HP PRN GT 10/22/24 09:00 10/24/24 01:45 650 MG Linezolid 300 ml @ 150 mls/hr Q12HR IV 10/24/24 10:00 10/26/24 09:05 150 MLS/HR Piperacillin Sod/ Tazobactam Sod 50 ml @ 12.5 mls/hr Q8H IV 10/24/24 16:00 10/26/24 07:58 12.5 MLS/HR Enteral Nutritional Formula 1,000 ml 30ML/HR GT 10/24/24 09:15 10/24/24 09:46 1,000 ML laboratory and microbiology Laboratory Tests 10/26/24 03:20 Test 10/26/24 03:20 Range/Units Serum Glucose 116 H 74-106 mg/dL Problem List/Assessment/Plan Problem List/Assessment/Plan 10/10/24 patient had exploratory operation with closure of perforated peptic ulceration about 5 days ago, now concern about possible cholecystitis. GB sludge,GB wall thickened and surounding edema,.LFT's elevated. [patient has history of heavy alcohol use(spouse report). LFTs elevation could be due to liver Ds but cholecystostomy is a reasonable next step, will follow with you 10/14/24 patient appears "surgically stable", will get gastrografin UGI prior to resuming gastric feedings 10/16/24 GASTROGRAFGIN UGI POSSIBLY WITH PERSISTENT LEAK FROM REPAIRED PYLORIC PERFORATION, I HAVE ORDERED A CT SCAN FOR CONFIRMATION 10/24/24 clinically unchanged,being weaned off ventilator, abdomen non distended, tolerating tube feedings, having BM's, KWAN drains with minimal clear drainage, drains removed. 10/26/24 large gastric residual volumes, suspect gastroparesis, vent settings acceptable for tracheostomy, planned for tomorrow Plan discussed with: Other Dietary Evaluation Review Comments: 1. Continue TPN to meet at least 75% estimated needs 2. Continue current POC Expected Outcomes/Goals: FU 2-3 days to meet adequate energy & protein within 7 days of NPO Protein Calorie Malnutrition: Severe (rn) LOBO BOSWELL MD Oct 26, 2024 11:18
[2024-10-26] MEDS: SODIUM CHL 0.9% 1000 ML BAG XX ONE (12:49)
[2024-10-26] MEDS: METOCLOPRAMIDE HCL 5MG/ml INJ 2ml VIAL IV SCH (12:49)
[2024-10-26] MEDS: CATHFLO ACTIVASE (ALTEPLASE) 2 MG VIAL IV ONE (14:31)
--- NOTE | 2024-10-26 14:48 | DVHPN2 ---
Progress Note Date Seen: Oct 26, 2024 Has the PT tested + for MRSA If YES, has PT been informed?: No Medical Necessity Reason Pt with a Central, PICC or Fol: Yes The following are medically ne: Central Line, Gómez Catheter Reason for gómez catheter: Strict I&O Subjective Review of Systems Scheduled for HD today Objective vital signs Vital Sign Date Time Temp Pulse Resp B/P (MAP) Pulse Ox O2 Delivery O2 Flow Rate FiO2 10/26/24 13:56 117 10/26/24 13:56 20 100 Mechanical Ventilator+ 30 30 10/26/24 13:45 131/73 (92) 10/26/24 13:00 98.8 98.8 Total Intake and Output 10/25/24 10/25/24 10/26/24 15:00 23:00 07:00 Intake Total 1127.611 ml 204.690 ml Output Total 1240 ml 490 ml Balance -112.389 ml -285.310 ml medications Current Medications Medications Dose Ordered Sig/Wally Route Start Time Stop Time Status Last Admin Dose Admin Fentanyl Citrate 250 ml @ 2.5 mls/hr Q24H IV 10/04/24 09:45 10/22/24 00:32 22.5 MLS/HR Ondansetron HCl 4 mg Q4HP PRN IV 10/04/24 11:45 Morphine Sulfate 2 mg Q4HPRN PRN IV 10/04/24 11:45 Cancel Nitroglycerin 0.4 mg Q5MINP PRN SL 10/04/24 11:45 Morphine Sulfate 2 mg Q30M PRN IV 10/04/24 11:45 Cancel Lorazepam 50 mg/ Sodium Chloride 50 ml @ 1 mls/hr Q24H IV 10/04/24 18:15 Cancel Midazolam HCl 50 ml @ 1 mls/hr Q24H IV 10/04/24 18:30 10/22/24 00:31 6 MLS/HR Amino Acids 0 ml @ 0 mls/hr PER PHARMACY IV 10/05/24 14:30 UNV Diagnostic Test (Pha) 1 strip Q6HR 10/05/24 18:00 10/26/24 10:49 1 STRIP Insulin Human Regular FOLLOW SLIDING SCALE Q6HR SC 10/05/24 18:00 10/25/24 11:04 2 UNITS Dextrose 50 ml UD IV 10/05/24 14:45 Meropenem 50 ml @ 17 mls/hr Q12HR IV 10/07/24 10:00 UNV Labetalol HCl 10 mg Q2HPRN PRN IV 10/08/24 09:30 Propofol 100 ml @ 2.181 mls/ hr Q24H IV 10/10/24 10:30 10/19/24 18:02 4.3623 MLS/HR Pantoprazole Sodium 40 mg DAILY IV 10/12/24 10:00 10/26/24 07:57 40 MG Levalbuterol HCl 0.625 mg Q6HR NEB 10/13/24 12:00 10/26/24 11:05 0.625 MG Ipratropium [place] 0.5 mg Q6HR NEB 10/13/24 12:00 10/26/24 11:05 0.5 MG Norepinephrine Bitartrate 32 mg/ Sodium Chloride 250 ml @ 0.938 mls/ hr Q24H IV 10/14/24 10:15 10/25/24 19:15 0.938 MLS/HR Epoetin Roger-epbx 10,000 unit MWF SC 10/19/24 17:00 10/24/24 11:20 10,000 UNIT Bumetanide 1 mg DAILY IV 10/22/24 10:00 10/26/24 07:58 1 MG Morphine Sulfate 2 mg Q4HPRN PRN IV 10/21/24 11:30 Morphine Sulfate 2 mg Q30M PRN IV 10/21/24 11:30 Nicardipine/ Sodium Chloride 200 ml @ 50 mls/hr Q4H IV 10/22/24 08:45 10/22/24 08:47 50 MLS/HR Metoprolol Tartrate 25 mg BID PO 10/22/24 10:00 10/25/24 07:45 25 MG Acetaminophen 650 mg Q6HP PRN GT 10/22/24 09:00 10/24/24 01:45 650 MG Linezolid 300 ml @ 150 mls/hr Q12HR IV 10/24/24 10:00 10/26/24 09:05 150 MLS/HR Piperacillin Sod/ Tazobactam Sod 50 ml @ 12.5 mls/hr Q8H IV 10/24/24 16:00 10/26/24 07:58 12.5 MLS/HR Enteral Nutritional Formula 1,000 ml 30ML/HR GT 10/24/24 09:15 10/24/24 09:46 1,000 ML Metoclopramide HCl 5 mg Q6HR IV 10/26/24 12:00 10/26/24 12:49 5 MG Examination Gen: NAD, intubated on mechanical ventilation Lungs: Decreased bilateral air entry Heart: RRR, normal S1 and S2 Ext: + trace edema laboratory and microbiology Laboratory Tests 10/26/24 03:20 Test 10/26/24 03:20 Range/Units Serum Glucose 116 H 74-106 mg/dL Microbiology Date/Time Source Procedure Growth Status 10/23/24 09:50 Voided Urine Urine Culture - Final Complete 10/23/24 09:50 Blood Blood Culture - Preliminary NO GROWTH AFTER 72 HOURS OF INCUBATION. Resulted 10/18/24 09:21 Pleural Fluid Gram Stain - Final Complete 10/18/24 09:21 Pleural Fluid Body Fluid Culture - Final Complete 10/16/24 12:05 Bronchial Washings Gram Stain - Final Complete 10/16/24 12:05 Bronchial Washings Respiratory Culture - Final Complete 10/04/24 17:10 Nose MRSA Screen - Final Complete Labs and/or images reviewed: Labs reviewed by me Problem List/Assessment/Plan Problem List/Assessment/Plan IMP Acute kidney injury likely ATN, FeNa ,> 2% requiring intermittent hemodialysis Acute respiratory failure, patient intubated on ventilator Hemodynamic shock acute blood loss anemia Perforated gastric ulcer status post surgery 10/04 Hyponatremia likely due to volume overload- resolved Pneumonia- on IV abx Sepsis Hypomagnesemia Empyema status post right chest tube REC HD today Improved UOP Chemistry panel Continue Epogen 16928 subQ 3 times weekly Strict I&Os We will continue to follow Case discussed with Dr Uriel Acevedo Plan discussed with: Other (Family ) Dietary Evaluation Review Comments: 1. Continue TPN to meet at least 75% estimated needs 2. Continue current POC Expected Outcomes/Goals: FU 2-3 days to meet adequate energy & protein within 7 days of NPO Protein Calorie Malnutrition: Severe (rn) CC Plasma Assessment Blood Product Administration S: [id number] RAY LEMOS Oct 26, 2024 14:48
--- NOTE | 2024-10-26 18:09 | DVHINCON2 ---
Date of service: Oct 26, [address] Avina Reason for Consultation Anemia GI bleed status post perforated viscus surgery History of Present Illness This 48-year-old man with a history CVA in the past was brought in the emergency room with complaints of failure to thrive syncopal episodes apparently he had passed out with decreased appetite and complaints of constipation Patient was apparently found to be hypotensive and workup revealed severe anemia he was intubated a CT scan of the showed there was evidence of perforated viscus for which surgery was done Patient also had some gallbladder stone for which surgery with a cholecystotomy was done Currently he patient is in the ICU had a leak apparently the anastomotic area which which is apparently better but has got bit patient has got sepsis with pleural effusion and anemia he also has got GI bleeding and hence the reason for the GI consult Past Medical History Emphysema hypertension hyperlipidemia CVA Past Surgical History Knee surgery Family History: Alcoholism G8 MOTHER Cardiovascular disease G8 MOTHER G8 FATHER FH: heart disease FH: lung cancer Hypertension G8 MOTHER Family History Lung cancer Allergies: Coded Allergies: NO KNOWN ALLERGIES (Unverified , 08/22/23) Home Meds Active Scripts Nifedipine (Nifedipine Er) 30 Mg Tab, 30 MG PO BID for 30 Days, #60 TAB 6 Refills Prov:HALE,JASE T DO 08/25/23 Atorvastatin Calcium (ATORVASTATIN CALCIUM) 20 Mg Tab, 20 MG PO HS for 30 Days, #30 TAB 6 Refills Prov:HALEJASE Regalado T DO 08/25/23 Aspirin (Aspir-Low) 81 Mg Tab, 81 MG PO DAILY for 30 Days, #30 TAB 1 Refill Prov:ALEXIAJASE Walsh DO 08/25/23 Reported Medications Lisinopril (Lisinopril) 20 Mg Tab, 1 TAB PO DAILY for 90 Days, #90 10/06/24 Escitalopram Oxalate (ESCITALOPRAM OXALATE) 10 Mg Tab, 1 TAB PO DAILY for 30 Days, #30 10/06/24 Current Medications Current Medications Medications (Trade) Dose Ordered Sig/Wally Route PRN Reason Start Time Stop Time Status Last Admin Metoclopramide HCl (Reglan Injection) 5 mg Q6HR IV 10/26/24 12:00 10/26/24 17:40 Review of Systems Noncontributory Vital Signs Vital Signs Date Time Temp Pulse Resp B/P (MAP) Pulse Ox O2 Delivery O2 Flow Rate FiO2 10/26/24 17:41 30 6/8/25 17:41 118 10/26/24 17:41 22 100 Mechanical Ventilator+ 10/26/24 16:30 122/73 (89) 115/65 (82) 10/26/24 15:45 99.1 99.1 Physical Exam Patient is intubated in the ICU unresponsive on dialysis now NG-tube has got some coffee-ground emesis Abdomen is soft no tenderness no rigidity no guarding no masses at this time Extremities mild edema Labs/Diagnostic Data Labs Test 10/26/24 17:07 10/26/24 06:08 10/26/24 03:20 10/24/24 03:19 Range/Units POC Glucose 91 70-106 mg/dl Blood Gas Specimen Type Arterial Blood Gas Sample Site Arterial line Blood Gas Patient Temperature 37.0 Arterial Blood Date Drawn [id number] Arterial Blood pH 7.530 H 7.350-7.450 Arterial Blood Partial Pressure CO2 28.4 L 35.0-48.0 mmHg Arterial Blood Partial Pressure O2 98.3 83.0-108.0 mmHg Arterial Blood HCO3 23.2 21.0-28.0 mmol/L Arterial Blood Oxygen Saturation 96.7 94.0-98.0 % Arterial Blood Base Excess 1.1 -2.0-3.0 mmol/L Arterial Blood Oxyhemoglobin 96.3 94.0-98.0 % Arterial Blood Carboxyhemoglobin 0.2 L 0.5-1.5 % Arterial Blood Methemoglobin 0.2 0.0-1.5 % Ke Test N/a Blood Gas Total Hemoglobin 10.10 L 13.5-17.5 g/dL Blood Gas Set Respiration Rate 18.0 Blood Gas Modality Vent - ac FiO2 % 30.0 Blood Gas Tidal Volume 550.0 Blood Gas PEEP or CPAP 5.0 White Blood Count 24.3 H 4.4-10.8 10^3/uL Red Blood Count 3.18 L 4.5-5.90 10^6/uL Hemoglobin 9.4 #L 13.5-17.5 g/dL Hematocrit 27.4 #L 41.0-53.0 % Mean Corpuscular Volume 86.2 80.0-100.0 fL Mean Corpuscular Hemoglobin 29.6 28.0-32.0 pg Mean Corpuscular Hemoglobin Concent 34.3 32.0-36.0 g/dL Red Cell Distribution Width 15.1 H 11.8-14.3 % Platelet Count 759 *H 140-450 10^3/uL Mean Platelet Volume 8.3 6.9-10.8 fL Neutrophils (%) (Auto) 37.0-80.0 % Lymphocytes (%) (Auto) 10.0-50.0 % Monocytes (%) (Auto) 0.0-12.0 % Basophils (%) (Auto) 0.0-2.0 % Neutrophils # (Auto) 1.6-8.6 10 ^3/uL Lymphocytes # (Auto) 0.4-5.4 10 ^3/uL Monocytes # (Auto) 0-1.3 10 ^3/uL Differential Total Cells Counted 100.0 100 Neutrophils % (Manual) 79 37.0-80.0 Band Neutrophils % (Manual) 8 Lymphocytes % (Manual) 6 L 10.0-50.0 Monocytes % (Manual) 6 0-12 Eosinophils % (Manual) 1 0-7 Basophils % (Manual) 0 0.0-2.0 Metamyelocytes % (manual) 0 Myelocytes % (Manual) 0 Promyelocytes % (Manual) 0 Blast Cells % (Manual) 0 Reactive Lymphocytes 0 Platelet Estimate Markedly increased Polychromasia Slight Anisocytosis (manual) Slight Macrocytosis Slight Ovalocytes Few Prothrombin Time 13.3 H 9.3-11.8 sec Prothrombin Time INR 1.29 H 0.9-1.15 Activated Partial Thromboplast Time 27.3 24.5-34.5 SEC Sodium Level 137 136-145 mmol/L Potassium Level 4.0 3.5-5.1 mmol/L Chloride Level 92 L 98-107 mmol/L Carbon Dioxide Level 25 20-31 mmol/L Anion Gap 20 H 5-15 Blood Urea Nitrogen 145 #*H 9-23 mg/dL Creatinine 6.30 H 0.700-1.30 mg/dL Glomerular Filtration Rate Calc 10 >90 mL/min BUN/Creatinine Ratio 23.0 H 10.0-20.0 Serum Glucose 116 H 74-106 mg/dL Calcium Level 8.8 8.7-10.4 mg/dL Total Bilirubin 2.0 H 0.2-1.0 mg/dL Aspartate Amino Transferase (AST) 218 H 13-40 U/L Alanine Aminotransferase (ALT) 229 H 7-40 U/L Alkaline Phosphatase 173 H 46-116 U/L Total Protein 7.1 5.7-8.2 g/dL Albumin 3.3 3.2-4.8 g/dL Large Platelets Few Giant Platelets Few Stomatocytes Moderate Test 10/23/24 02:45 10/22/24 03:00 10/20/24 03:23 10/20/24 03:22 Range/Units Clumped Platelets Few Magnesium Level 2.1 1.6-2.6 mg/dL Smudge Cells 1 /100 WBC Phosphorus Level 4.0 2.4-5.1 mg/dL Iron Level 28 L 65-175 ug/dL Total Iron Binding Capacity 175 L 250-425 ug/dL Percent Iron Saturation 16.0 L 20-55 % Ferritin 728.9 H 22-322 ng/mL Test 10/19/24 03:04 10/18/24 09:21 10/18/24 03:24 10/17/24 10:02 Range/Units Triglycerides Level 333 H < 150 mg/dL Body Fluid Glucose 74 . mg/dL Body Fluid Total Protein 3.2 . g/dL Body Fluid Lactate Dehydrogenase 881 . IU/L Eosinophils (%) (Auto) 6.4 0.0-7.0 % Eosinophils # (Auto) 0.6 0-0.8 10 ^3/uL Basophils # (Auto) 0.1 0-0.2 10 ^3/uL Nucleated Red Blood Cells 0.2 % Hepatitis A IgM Antibody Negative Hepatitis B Surface Antigen Negative Negative Hepatitis B Core IgM Antibody Negative Negative Hepatitis C Antibody Negative Negative Test 10/16/24 06:34 10/14/24 11:50 10/13/24 04:00 10/12/24 02:27 Range/Units Blood Gas Critical Value Read Back Yes Blood Gas Notified Whom Rolanda avina np Blood Gas Notified Time [id number] Blood Gas Notified By pattern data operator larissa ching Body Fluid Source Pleural fluid Body Fluid pH 8.0 Body Fluid WBC (Manual) 1303 H 0-200 CUMM Body Fluid RBC (Manual) 11586 H 0-2000 CUMM Body Fluid Mononuclear Cells 5 % Body Fluid Polymorphonuclear Cells 95 H 0-25 % B-Type Natriuretic Peptide 93.62 0-100 pg/mL Ammonia < 10 L 11-32 umol/L Lipase 58 H 12-53 U/L Test 10/11/24 18:00 5/24/25 07:55 10/10/24 03:15 10/08/24 06:46 Range/Units Urine Creatinine 48.05 30.0-125.0 mg/dL Urine Sodium 76 40-220 mmol/L Blood Gas Spontaneous Rate 30 Lactic Acid Level 0.8 0.4-2.0 mmol/L Specimen Drawn By Marta layout inspector Test 10/07/24 03:10 10/05/24 15:05 10/05/24 03:46 10/04/24 17:00 Range/Units Phospholipids Level 106 L 127-261 mg/dL Urine Color Light-yellow Yellow Urine Clarity Hazy H Clear Urine pH 5.5 5.0-9.0 Urine Specific [place] 1.018 1.001-1.035 Urine Protein 1+ H Negative Urine Ketones Negative Negative Urine Blood 3+ H Negative /uL Urine Nitrite Negative Negative Urine Bilirubin Negative Negative Urine Urobilinogen Normal Negative mg/dL Urine Leukocyte Esterase Negative Negative /uL Urine RBC 1 0 - 3 /hpf Urine Microscopic WBC 9 H 0-3 /HPF Urine Squamous Epithelial Cells Few <5 /hpf Urine Bacteria Few H None Seen /hpf Urine Mucus Few None Seen Urine Glucose Trace Normal mg/dL Urine Total Protein 85.0 H 1-14 mg/dL Urine Opiates Screen Neg NEGATIVE Urine Fentanyl Screen Pos NEGATIVE Urine Barbiturates Screen Neg NEGATIVE Urine Phencyclidine Screen Neg NEGATIVE Urine Amphetamines Screen Neg NEGATIVE Urine Benzodiazepines Screen Pos NEGATIVE Urine Cocaine Screen Neg NEGATIVE Urine Cannabinoids Screen Neg NEGATIVE [place] Cells Moderate Random Vancomycin Level 26.6 H 5-10 ug/mL Microcytosis Slight Test 10/04/24 08:05 10/04/24 07:01 Range/Units Reticulocyte Count (auto) 5.51 H 0.5-1.5 % Hemoglobin A1c 5.6 <5.7 % A1C Troponin I High Sensitivity 359 *H </=54 ng/L Red Blood Cell Morphology Normal Microbiology Date/Time Source Procedure Growth Status 10/23/24 09:50 Voided Urine Urine Culture - Final Complete 10/23/24 09:50 Blood Blood Culture - Preliminary NO GROWTH AFTER 72 HOURS OF INCUBATION. Resulted 10/18/24 09:21 Pleural Fluid Gram Stain - Final Complete 10/18/24 09:21 Pleural Fluid Body Fluid Culture - Final Complete 10/16/24 12:05 Bronchial Washings Gram Stain - Final Complete 10/16/24 12:05 Bronchial Washings Respiratory Culture - Final Complete 10/04/24 17:10 Nose MRSA Screen - Final Complete Assessment Patient is this is a 48-year-old presented with the weakness tiredness to the emergency room with a history of hypertension hyperlipidemia and CVA and emphysema In the ER patient was found to be hypotensive and anemic severely workup showed there was a perforated viscus which was surgically corrected Also had a cholecystostomy Currently now is in the ICU with sepsis renal failure pulmonary effusion and has some coffee-ground emesis and hence the reason for the GI consult Examination he is extremely sick moribund in the ICU in two unstable for any intervention at this time especially with the reason perforated viscus surgery Plan/Recommendation Monitor closely the hemoglobin and crit and coagulation Hematology consult PPIs prophylaxis If bleeding continues may need further workup recommend Gastrografin study to ensure there was no perforation at this time also We will probably need radiological intervention with angiogram if the bleeding continues which would be safer especially with the reason surgery for perforated viscus His overall prognosis is guarded Thank you Dr. Augustine Plan discussed with: Other MELE AUGUSTINE MD Oct 26, 2024 18:09
--- NOTE | 2024-10-26 18:41 | DVHPN2 ---
Subjective in bed doing well intubated Reviewed: Care Plan, H&P, Labs, Medications, Previous Orders, Radiology, Other (Consultants) Changes from previous H/P or p: No Changes General: Per HPI Objective Vitals Vital Signs Date Time Temp Pulse Resp B/P (MAP) Pulse Ox O2 Delivery O2 Flow Rate FiO2 10/26/24 18:00 98.8 117 22 135/78 (97) 100 98.8 136/77 (96) 10/26/24 17:41 30 10/26/24 17:41 Mechanical Ventilator+ Intake/Output Intake and Output 10/26/24 07:00 Intake Total 1332.301 ml Output Total 1730 ml Balance -397.699 ml Intake Oral 25 ml IV Total 707.301 ml Tube Feeding 0 ml Blood Product 600 ml Output Urine Total 700 ml Gastric Drainage Total 800 ml Chest Tube Drainage Total 0 ml Drainage Total 230 ml # Bowel Movements 2 General Appearance: mild distress, Other (Intubated and sedated) HEENT: Atraumatic, PERRLA Lungs: Other (Mechanical ventilation. Decreased breath sounds at bases) Cardiovascular: Regular rate, Normal S1, Normal S2, Other (Sinus rhythm) Abdomen: Other Neuro: Other (Unable to assess) Skin: Dry, Intact, Wounds, Other Psych/Mental Status: Other Medications Current Medications Medications Dose Ordered Sig/Wally Route Start Time Stop Time Status Last Admin Dose Admin Fentanyl Citrate 250 ml @ 2.5 mls/hr Q24H IV 10/04/24 09:45 10/22/24 00:32 22.5 MLS/HR Ondansetron HCl 4 mg Q4HP PRN IV 10/04/24 11:45 Morphine Sulfate 2 mg Q4HPRN PRN IV 10/04/24 11:45 Cancel Nitroglycerin 0.4 mg Q5MINP PRN SL 10/04/24 11:45 Morphine Sulfate 2 mg Q30M PRN IV 10/04/24 11:45 Cancel Lorazepam 50 mg/ Sodium Chloride 50 ml @ 1 mls/hr Q24H IV 10/04/24 18:15 Cancel Midazolam HCl 50 ml @ 1 mls/hr Q24H IV 10/04/24 18:30 10/22/24 00:31 6 MLS/HR Amino Acids 0 ml @ 0 mls/hr PER PHARMACY IV 10/05/24 14:30 UNV Diagnostic Test (Pha) 1 strip Q6HR 10/05/24 18:00 10/26/24 17:15 1 STRIP Insulin Human Regular FOLLOW SLIDING SCALE Q6HR SC 10/05/24 18:00 10/25/24 11:04 2 UNITS Dextrose 50 ml UD IV 10/05/24 14:45 Meropenem 50 ml @ 17 mls/hr Q12HR IV 10/07/24 10:00 UNV Labetalol HCl 10 mg Q2HPRN PRN IV 10/08/24 09:30 Propofol 100 ml @ 2.181 mls/ hr Q24H IV 10/10/24 10:30 10/19/24 18:02 4.3623 MLS/HR Pantoprazole Sodium 40 mg DAILY IV 10/12/24 10:00 10/26/24 07:57 40 MG Levalbuterol HCl 0.625 mg Q6HR NEB 10/13/24 12:00 10/26/24 18:38 0.625 MG Ipratropium [place] 0.5 mg Q6HR NEB 10/13/24 12:00 10/26/24 18:38 0.5 MG Norepinephrine Bitartrate 32 mg/ Sodium Chloride 250 ml @ 0.938 mls/ hr Q24H IV 10/14/24 10:15 10/25/24 19:15 0.938 MLS/HR Epoetin Roger-epbx 10,000 unit MWF [place] 10/19/24 17:00 10/24/24 11:20 10,000 UNIT Bumetanide 1 mg DAILY IV 10/22/24 10:00 10/26/24 07:58 1 MG Morphine Sulfate 2 mg Q4HPRN PRN IV 10/21/24 11:30 Morphine Sulfate 2 mg Q30M PRN IV 10/21/24 11:30 Nicardipine/ Sodium Chloride 200 ml @ 50 mls/hr Q4H IV 10/22/24 08:45 10/22/24 08:47 50 MLS/HR Metoprolol Tartrate 25 mg BID PO 10/22/24 10:00 10/25/24 07:45 25 MG Acetaminophen 650 mg Q6HP PRN GT 10/22/24 09:00 10/24/24 01:45 650 MG Linezolid 300 ml @ 150 mls/hr Q12HR IV 10/24/24 10:00 10/26/24 09:05 150 MLS/HR Piperacillin Sod/ Tazobactam Sod 50 ml @ 12.5 mls/hr Q8H IV 10/24/24 16:00 10/26/24 07:58 12.5 MLS/HR Enteral Nutritional Formula 1,000 ml 30ML/HR GT 10/24/24 09:15 10/24/24 09:46 1,000 ML Metoclopramide HCl 5 mg Q6HR IV 10/26/24 12:00 10/26/24 17:40 5 MG Laboratory Results Laboratory Tests 10/26/24 03:20 Chemistry Test 10/26/24 03:20 Albumin 3.3 g/dL (3.2-4.8) Calcium Level 8.8 mg/dL (8.7-10.4) Total Protein 7.1 g/dL (5.7-8.2) Coagulation Test 10/26/24 03:20 Prothrombin Time 13.3 sec (9.3-11.8) H Prothrombin Time INR 1.29 (0.9-1.15) H Activated Partial Thromboplast Time 27.3 SEC (24.5-34.5) LFT Test 10/26/24 03:20 Alanine Aminotransferase (ALT) 229 U/L (7-40) H Alkaline Phosphatase 173 U/L (46-116) H Aspartate Amino Transferase (AST) 218 U/L (13-40) H Total Bilirubin 2.0 mg/dL (0.2-1.0) H Urinalysis Test 10/05/24 15:05 10/11/24 18:00 Urine Color Light-yellow (Yellow) Urine Clarity Hazy (Clear) H Urine pH 5.5 (5.0-9.0) Urine Specific [place] 1.018 (1.001-1.035) Urine Protein 1+ (Negative) H Urine Ketones Negative (Negative) Urine Blood 3+ /uL (Negative) H Urine Nitrite Negative (Negative) Urine Bilirubin Negative (Negative) Urine Urobilinogen Normal mg/dL (Negative) Urine Leukocyte Esterase Negative /uL (Negative) Urine RBC 1 /hpf (0 - 3) Urine Microscopic WBC 9 /HPF (0-3) H Urine Squamous Epithelial Cells Few /hpf (<5) Urine Bacteria Few /hpf (None Seen) H Urine Mucus Few (None Seen) Urine Glucose Trace mg/dL (Normal) Urine Total Protein 85.0 mg/dL (1-14) H Urine Creatinine 48.05 mg/dL (30.0-125.0) Urine Sodium 76 mmol/L (40-220) Blood Gas Results Test 10/26/24 06:08 Arterial Blood pH 7.530 (7.350-7.450) FiO2 % 30.0 Microbiology Microbiology Date/Time Source Procedure Growth Status 10/23/24 09:50 Voided Urine Urine Culture - Final Complete 10/23/24 09:50 Blood Blood Culture - Preliminary NO GROWTH AFTER 72 HOURS OF INCUBATION. Resulted 10/18/24 09:21 Pleural Fluid Gram Stain - Final Complete 10/18/24 09:21 Pleural Fluid Body Fluid Culture - Final Complete 10/16/24 12:05 Bronchial Washings Gram Stain - Final Complete 10/16/24 12:05 Bronchial Washings Respiratory Culture - Final Complete 10/04/24 17:10 Nose MRSA Screen - Final Complete Assessment/Plan Assessment/Plan Impression: -severe septic shock -pneumoperitoneum secondary to perforated gastric ulcer -acute kidney injury, hemodynamically mediated, probable VMN -acute hypoxic respiratory failure -shock liver -nicotine dependence -history of CVA -right upper extremity DVT -multifocal pneumonia, probable Gram-positive/Gram-negative etiology -anemia secondary to nutrition, renal failure -bilateral pleural effusions Plan: Events: Patient had spontaneous breathing trial yesterday. Continues to be encephalopathic. Patient with increasing white blood cell count, attempt. Cultures thus far negative. Triple-lumen IJ removed yesterday. We will exchange Barrios catheter today. Staff continues to stop tube feeding despite patient having positive bowel movements. We will attempt to try intermittent feedings to achieve caloric goal for patient. -continue tube feeding, 6 hours on, 4 hours off -Protonix 40 mg IV twice a day -further recommendations per surgical consultation -antibiotic therapy: Zosyn, Zyvox -continue Bumex drip. Nephrology recommendations appreciated -continue anticoagulation with Lovenox. -repeat labs, chest x-ray, ABG in a.m. -Discussed plan of care with . All questions answered. Critical care time spent with patient discussing and formulating plan of care: 90 minutes. This does not include time spent performing procedures. Plan discussed with: Other (nurse) Date of Service: Oct 25, 2024 Billing Provider: LUPIS CAMPOS MD Common Visit Codes: [id number] CARE 30-74 MIN LUPIS CAMPOS MD Oct 26, 2024 18:41
--- NOTE | 2024-10-26 20:14 | DVHPN2 ---
Progress Note - Dictate Date Seen: Oct 26, 2024 Has the PT tested + for MRSA If YES, has PT been informed?: No Medical Necessity Reason Pt with a Central, PICC or Fol: Yes The following are medically ne: Central Line, Gómez Catheter Reason for gómez catheter: Strict I&O Subjective Patient seen and examined at bedside. intubated on mechanical ventilator. Overnight events reviewed. vital signs Vital Sign Date Time Temp Pulse Resp B/P (MAP) Pulse Ox O2 Delivery O2 Flow Rate FiO2 10/26/24 18:45 118 22 132/84 (100) 100 136/79 (98) 10/26/24 18:38 30 10/26/24 18:00 98.8 98.8 10/26/24 17:41 Mechanical Ventilator+ Total Intake and Output 10/25/24 10/25/24 10/26/24 15:00 23:00 07:00 Intake Total 1127.611 ml 204.690 ml Output Total 1240 ml 490 ml Balance -112.389 ml -285.310 ml medications Current Medications Medications Dose Ordered Sig/Wally Route Start Time Stop Time Status Last Admin Dose Admin Fentanyl Citrate 250 ml @ 2.5 mls/hr Q24H IV 10/04/24 09:45 10/22/24 00:32 22.5 MLS/HR Ondansetron HCl 4 mg Q4HP PRN IV 10/04/24 11:45 Morphine Sulfate 2 mg Q4HPRN PRN IV 10/04/24 11:45 Cancel Nitroglycerin 0.4 mg Q5MINP PRN SL 10/04/24 11:45 Morphine Sulfate 2 mg Q30M PRN IV 10/04/24 11:45 Cancel Lorazepam 50 mg/ Sodium Chloride 50 ml @ 1 mls/hr Q24H IV 10/04/24 18:15 Cancel Midazolam HCl 50 ml @ 1 mls/hr Q24H IV 10/04/24 18:30 10/22/24 00:31 6 MLS/HR Amino Acids 0 ml @ 0 mls/hr PER PHARMACY IV 10/05/24 14:30 UNV Diagnostic Test (Pha) 1 strip Q6HR 10/05/24 18:00 10/26/24 17:15 1 STRIP Insulin Human Regular FOLLOW SLIDING SCALE Q6HR SC 10/05/24 18:00 10/25/24 11:04 2 UNITS Dextrose 50 ml UD IV 10/05/24 14:45 Meropenem 50 ml @ 17 mls/hr Q12HR IV 10/07/24 10:00 UNV Labetalol HCl 10 mg Q2HPRN PRN IV 10/08/24 09:30 Propofol 100 ml @ 2.181 mls/ hr Q24H IV 10/10/24 10:30 10/19/24 18:02 4.3623 MLS/HR Pantoprazole Sodium 40 mg DAILY IV 10/12/24 10:00 10/26/24 07:57 40 MG Levalbuterol HCl 0.625 mg Q6HR NEB 10/13/24 12:00 10/26/24 18:38 0.625 MG Ipratropium [place] 0.5 mg Q6HR NEB 10/13/24 12:00 10/26/24 18:38 0.5 MG Norepinephrine Bitartrate 32 mg/ Sodium Chloride 250 ml @ 0.938 mls/ hr Q24H IV 10/14/24 10:15 10/25/24 19:15 0.938 MLS/HR Epoetin Roger-epbx 10,000 unit MWF [place] 10/19/24 17:00 10/24/24 11:20 10,000 UNIT Bumetanide 1 mg DAILY IV 10/22/24 10:00 10/26/24 07:58 1 MG Morphine Sulfate 2 mg Q4HPRN PRN IV 10/21/24 11:30 Morphine Sulfate 2 mg Q30M PRN IV 10/21/24 11:30 Nicardipine/ Sodium Chloride 200 ml @ 50 mls/hr Q4H IV 10/22/24 08:45 10/22/24 08:47 50 MLS/HR Metoprolol Tartrate 25 mg BID PO 10/22/24 10:00 10/25/24 07:45 25 MG Acetaminophen 650 mg Q6HP PRN GT 10/22/24 09:00 10/24/24 01:45 650 MG Linezolid 300 ml @ 150 mls/hr Q12HR IV 10/24/24 10:00 10/26/24 09:05 150 MLS/HR Piperacillin Sod/ Tazobactam Sod 50 ml @ 12.5 mls/hr Q8H IV 10/24/24 16:00 10/26/24 07:58 12.5 MLS/HR Enteral Nutritional Formula 1,000 ml 30ML/HR GT 10/24/24 09:15 10/24/24 09:46 1,000 ML Metoclopramide HCl 5 mg Q6HR IV 10/26/24 12:00 10/26/24 17:40 5 MG objective Gen.: Patient lying in bed in medical ICU. Intubated on mechanical ventilator. Head: Normocephalic, atraumatic. Eyes: PERRLA. Ears: Normal external anatomy. Throat: Endotracheal tube and orogastric tube in place. Neck: Supple, trachea midline. Chest: Transmitted breath sounds bilaterally. Decreased air entry bilaterally. No wheezing. Bibasilar crackles. Cardiovascular: Positive S1, positive S2. Regular rate and rhythm. Abdomen: Positive bowel sounds in all 4 quadrants. Soft, nontender, nondistended. : Gómez in place. Normal external genitalia. Rectal: Deferred. Skin: Warm, dry. Intact. Extremities: 2+ radial pulses bilaterally. No lower extremity edema. Neuro: Off sedation laboratory and microbiology Laboratory Tests 10/26/24 03:20 Test 10/26/24 03:20 Range/Units Serum Glucose 116 H 74-106 mg/dL Assessment/Plan Impression: Acute hypoxic respiratory failure On mechanical ventilator Septic shock Perforated viscus Nicotine dependence Events: Vent support On AC mode; RR 18, VT 550, PEEP 5, Fio2 30% Remains off sedation Plan for tracheostomy in AM. Hemodialysis today. Tarry stools, coffee ground via NGT- GI consultation appreciated s/p 2 units PRBC yesterday Monitor chest tube output Monitor trish drain output ABG notable for alkalemia. CXR today demonstrates mild right lung base opacity without evidence of focal consolidation or pleural effusion. No evidence of pneumothorax. Off pressors, hemodynamically stable. Blood pressure control Bumex IV for diuresis. Monitor renal function Monitor electrolytes. Supplement as necessary. Monitor ins and outs. Continue antibiotics - Zyvox/Zosyn Follow up cultures Continue bronchodilators Tube feeds for nutritional support- hold for procedure tomorrow Monitor hemoglobin Monitor KWAN + trish drain output Protonix for GI prophylaxis Therapeutic Lovenox for DVT prophylaxis CT chest reviewed, demonstrates trace left pneumothorax. Moderate bilateral pleural fluid. Mild residual left upper lobe ground-glass opacity, likely pulmonary edema, significantly improved. Bilateral dependent partial consolidation of the lower lobes, likely compressive atelectasis.. Abdomen-pelvis CT demonstrated small basilar left pneumothorax. Head CT reviewed; No intracranial hemorrhage or mass effect. Old bilateral basal ganglia lacunar infarcts. Labs and imaging reviewed. Rest of plan as noted below. Plan: s/p intubation on mechanical ventilator. On AC mode; RR 18, VT 550, PEEP 5, Fio2 30% Titrate FIO2 to keep O2 saturation above 90%. VAP bundle. Daily ABG and CXR while intubated Off sedation Continue antibiotics. Continue bronchodilators Pressors if necessary for hemodynamic support Titrate to keep mean arterial pressure greater than 65 mmHg. Diurese Monitor renal function Monitor electrolytes. Supplement as necessary. Monitor ins and outs. GI prophylaxis. DVT prophylaxis. Prognosis: Poor given patient's multiple co-morbidities. Condition: Critical Rest of plan per hospitalist and other consultants. A total of 35 minutes of critical care time was spent reviewing the patient record, examining the patient, making a diagnostic and therapeutic plan, discussing this plan with the medical personnel, following up on diagnostic studies and following the patient for clinical stability excluding any and all procedures. At least 50% of this time was spent in direct, [id number] contact. Thank you, NIDIA Caldera, for allowing me to participate in this patient's care. Further recommendations will depend on the patient's clinical course. Please do not hesitate to contact me if you have any questions or concerns. This medical document was created using an electronic medical record system with [employer] dictation system. Although these documentations are being carefully reviewed, there may still be some phonetic and typographical changes. The errors are purely typographical, due to imperfection on the software program, and do not reflect any compromise in the patient's medical care. Dietary Evaluation Review Comments: 1. Continue TPN to meet at least 75% estimated needs 2. Continue current POC Expected Outcomes/Goals: FU 2-3 days to meet adequate energy & protein within 7 days of NPO Protein Calorie Malnutrition: Severe (rn) Plan discussed with: Other (JASPER Kruger) Critical Care Time(min): 35 CC Plasma Assessment Blood Product Administration S: [id number] ARIE LOPEZ MD Oct 26, 2024 20:14
[2024-10-27] VITALS (105 sets, daily range): BP systolic 79–184; BP diastolic 41–82; PULSE 70–133; RESP 10–69; TEMP 97.9–99.9; O2SAT 73–100
[2024-10-27 01:00] LABS: Urine Protein, UAD 1+ (Negative)
[2024-10-27 03:57] LABS: Hemoglobin 8.7 g/dL (13.5-17.5)
[2024-10-27 04:01] LABS: Hematocrit 25.1 % (41.0-53.0); Mean Corpuscular Hemoglobin 30.1 pg (28.0-32.0); Mean Corpuscular Volume 86.6 fL (80.0-100.0); Nucleated Red Blood Cells % 0.1 %
[2024-10-27 04:09] LABS: INR 1.25 (0.9-1.15); Partial Thromboplastin Time 25.8 SEC (24.5-34.5); Prothrombin Time 13.0 sec (9.3-11.8)
[2024-10-27 04:14] LABS: Albumin 3.5 g/dL (3.2-4.8); Anion Gap 22 (5-15); BUN/Creatinine Ratio 22.0 (10.0-20.0); Calcium 9.0 mg/dL (8.7-10.4); Carbon Dioxide 26 mmol/L (20-31); Magnesium 2.3 mg/dL (1.6-2.6); Potassium 3.9 mmol/L (3.5-5.1); Sodium 140 mmol/L (136-145); Total Protein 7.4 g/dL (5.7-8.2)
[2024-10-27 04:22] LABS: Alanine Aminotransferase 182 U/L (7-40); Alkaline Phosphatase 180 U/L (46-116); Bilirubin, Total 2.1 mg/dL (0.2-1.0); Chloride 92 mmol/L (98-107); Glucose 111 mg/dL (74-106)
[2024-10-27 04:23] LABS: Blood Urea Nitrogen 150 mg/dL (9-23)
--- NOTE | 2024-10-27 04:45 | DVH ---
CHEST RADIOGRAPH Indication: pna Technique: Single frontal view of the chest was obtained Comparison: XY CHEST XRAY 1 VIEW on DOS: 10/26/24 FINDINGS: Lines and Tubes: The endotracheal tube terminates 2.7 cm above the dunia. The enteric tube courses b elow the left hemidiaphragm and the tip extends outside the field of view. Left IJ access central uma ous catheter terminates in the superior vena cava. Pigtail catheter projects over the right lung base . Lungs: Hazy right basilar opacity. Pleura: No effusion. No pneumothorax. Cardiomediastinal contours: Unremarkable Bones: No acute osseous abnormality. IMPRESSION: 1. Support tubes as described. 2. Hazy right basilar opacity similar to prior study. No pneumothorax.
[2024-10-27 07:16] LABS: Base Excess 5.4 mmol/L (-2.0-3.0)
--- NOTE | 2024-10-27 08:44 | DVHPN2 ---
Subjective Patient intubated and encephalopathic Reviewed: Care Plan, H&P, Labs, Medications, Previous Orders, Radiology, Other (Consultants) Changes from previous H/P or p: No Changes General: Per HPI Objective Vitals Vital Signs Date Time Temp Pulse Resp B/P (MAP) Pulse Ox O2 Delivery O2 Flow Rate FiO2 10/27/24 08:00 122 10/27/24 08:00 21 99 Mechanical Ventilator+ 30 30 10/27/24 07:45 117/67 (84) 10/27/24 04:00 99.3 99.3 Intake/Output Intake and Output 10/27/24 07:00 Intake Total 409.689 ml Output Total 3210 ml Balance -2800.311 ml Intake Oral 30 ml IV Total 379.689 ml Output Urine Total 1750 ml Gastric Drainage Total 1150 ml Chest Tube Drainage Total 0 ml Drainage Total 310 ml # Bowel Movements 2 General Appearance: mild distress, Other (Intubated and sedated) HEENT: Atraumatic, PERRLA Lungs: Other (Mechanical ventilation. Decreased breath sounds at bases) Cardiovascular: Regular rate, Normal S1, Normal S2, Other (Sinus rhythm) Abdomen: Other Neuro: Other (Unable to assess) Skin: Dry, Intact, Wounds, Other Psych/Mental Status: Other Medications Current Medications Medications Dose Ordered Sig/Wally Route Start Time Stop Time Status Last Admin Dose Admin Fentanyl Citrate 250 ml @ 2.5 mls/hr Q24H IV 10/04/24 09:45 10/22/24 00:32 22.5 MLS/HR Ondansetron HCl 4 mg Q4HP PRN IV 10/04/24 11:45 Morphine Sulfate 2 mg Q4HPRN PRN IV 10/04/24 11:45 Cancel Nitroglycerin 0.4 mg Q5MINP PRN SL 10/04/24 11:45 Morphine Sulfate 2 mg Q30M PRN IV 10/04/24 11:45 Cancel Lorazepam 50 mg/ Sodium Chloride 50 ml @ 1 mls/hr Q24H IV 10/04/24 18:15 Cancel Midazolam HCl 50 ml @ 1 mls/hr Q24H IV 10/04/24 18:30 10/22/24 00:31 6 MLS/HR Amino Acids 0 ml @ 0 mls/hr PER PHARMACY IV 10/05/24 14:30 UNV Diagnostic Test (Pha) 1 strip Q6HR 10/05/24 18:00 10/27/24 06:28 1 STRIP Insulin Human Regular FOLLOW SLIDING SCALE Q6HR SC 10/05/24 18:00 10/25/24 11:04 2 UNITS Dextrose 50 ml UD IV 10/05/24 14:45 Meropenem 50 ml @ 17 mls/hr Q12HR IV 10/07/24 10:00 UNV Labetalol HCl 10 mg Q2HPRN PRN IV 10/08/24 09:30 Propofol 100 ml @ 2.181 mls/ hr Q24H IV 10/10/24 10:30 10/19/24 18:02 4.3623 MLS/HR Pantoprazole Sodium 40 mg DAILY IV 10/12/24 10:00 10/26/24 07:57 40 MG Levalbuterol HCl 0.625 mg Q6HR NEB 10/13/24 12:00 10/27/24 05:54 0.625 MG Ipratropium [place] 0.5 mg Q6HR NEB 10/13/24 12:00 10/27/24 05:54 0.5 MG Norepinephrine Bitartrate 32 mg/ Sodium Chloride 250 ml @ 0.938 mls/ hr Q24H IV 10/14/24 10:15 10/25/24 19:15 0.938 MLS/HR Epoetin Roger-epbx 10,000 unit MWF [place] 10/19/24 17:00 10/24/24 11:20 10,000 UNIT Bumetanide 1 mg DAILY IV 10/22/24 10:00 10/26/24 07:58 1 MG Morphine Sulfate 2 mg Q4HPRN PRN IV 10/21/24 11:30 Morphine Sulfate 2 mg Q30M PRN IV 10/21/24 11:30 Nicardipine/ Sodium Chloride 200 ml @ 50 mls/hr Q4H IV 10/22/24 08:45 10/22/24 08:47 50 MLS/HR Metoprolol Tartrate 25 mg BID PO 10/22/24 10:00 10/26/24 21:55 25 MG Acetaminophen 650 mg Q6HP PRN GT 10/22/24 09:00 10/24/24 01:45 650 MG Linezolid 300 ml @ 150 mls/hr Q12HR IV 10/24/24 10:00 10/26/24 21:54 150 MLS/HR Piperacillin Sod/ Tazobactam Sod 50 ml @ 12.5 mls/hr Q8H IV 10/24/24 16:00 10/27/24 07:41 12.5 MLS/HR Enteral Nutritional Formula 1,000 ml 30ML/HR GT 10/24/24 09:15 10/24/24 09:46 1,000 ML Metoclopramide HCl 5 mg Q6HR IV 10/26/24 12:00 10/27/24 06:18 5 MG Laboratory Results Laboratory Tests 10/27/24 03:10 Chemistry Test 10/27/24 03:10 Albumin 3.5 g/dL (3.2-4.8) Calcium Level 9.0 mg/dL (8.7-10.4) Magnesium Level 2.3 mg/dL (1.6-2.6) Total Protein 7.4 g/dL (5.7-8.2) Coagulation Test 10/27/24 03:10 Prothrombin Time 13.0 sec (9.3-11.8) H Prothrombin Time INR 1.25 (0.9-1.15) H Activated Partial Thromboplast Time 25.8 SEC (24.5-34.5) LFT Test 10/27/24 03:10 Alanine Aminotransferase (ALT) 182 U/L (7-40) H Alkaline Phosphatase 180 U/L (46-116) H Aspartate Amino Transferase (AST) 122 U/L (13-40) H Total Bilirubin 2.1 mg/dL (0.2-1.0) H Urinalysis Test 10/05/24 15:05 10/11/24 18:00 10/26/24 20:33 Urine Mucus Few (None Seen) Urine Total Protein 85.0 mg/dL (1-14) H Urine Creatinine 48.05 mg/dL (30.0-125.0) Urine Sodium 76 mmol/L (40-220) Urine Color Light-yellow (Yellow) Urine Clarity Clear (Clear) Urine pH 7.0 (5.0-9.0) Urine Specific [place] 1.014 (1.001-1.035) Urine Protein 1+ (Negative) H Urine Ketones Negative (Negative) Urine Blood 1+ /uL (Negative) H Urine Nitrite Negative (Negative) Urine Bilirubin Negative (Negative) Urine Urobilinogen Normal mg/dL (Negative) Urine Leukocyte Esterase Negative /uL (Negative) Urine RBC 1 /hpf (0 - 3) Urine Microscopic WBC 3 /HPF (0-3) Urine Squamous Epithelial Cells None seen /hpf (<5) Urine Bacteria Few /hpf (None Seen) H Urine Glucose Normal mg/dL (Normal) Blood Gas Results Test 10/27/24 05:57 Arterial Blood pH 7.527 (7.350-7.450) FiO2 % 30.0 Microbiology Microbiology Date/Time Source Procedure Growth Status 10/23/24 09:50 Voided Urine Urine Culture - Final Complete 10/23/24 09:50 Blood Blood Culture - Preliminary NO GROWTH AFTER 72 HOURS OF INCUBATION. Resulted 10/18/24 09:21 Pleural Fluid Gram Stain - Final Complete 10/18/24 09:21 Pleural Fluid Body Fluid Culture - Final Complete 10/16/24 12:05 Bronchial Washings Gram Stain - Final Complete 10/16/24 12:05 Bronchial Washings Respiratory Culture - Final Complete 10/04/24 17:10 Nose MRSA Screen - Final Complete Labs and/or images reviewed: Labs reviewed by me, Image(s) reviewed by me Assessment/Plan Assessment/Plan Impression: -severe septic shock -pneumoperitoneum secondary to perforated gastric ulcer -acute kidney injury, hemodynamically mediated, probable VMN -acute hypoxic respiratory failure -shock liver -nicotine dependence -history of CVA -right upper extremity DVT -multifocal pneumonia, probable Gram-positive/Gram-negative etiology -anemia secondary to nutrition, renal failure -bilateral pleural effusions -small left pneumothorax Plan: Events: CT scan of the head, abdomen, pelvis performed. Results reviewed. Discussed findings of CT scan of the head with Neurology. Patient continues to be encephalopathic. Long discussion made with the patient's previous Sunday regarding tracheostomy placement. Plans for tracheostomy today. We will change HD catheter this a.m.. -continue tube feeding, 6 hours on, 4 hours off -Protonix 40 mg IV twice a day -further recommendations per surgical consultation -antibiotic therapy: Zosyn, Zyvox -continue Bumex drip. Nephrology recommendations appreciated -continue anticoagulation with Lovenox. -repeat labs, chest x-ray, ABG in a.m. -Discussed plan of care with . All questions answered. Critical care time spent with patient discussing and formulating plan of care: 90 minutes. This does not include time spent performing procedures. This medical document was created using an electronic medical record system with [employer] dictation system. Although this document has been carefully reviewed, there may still be some phonetic and typographical errors. These areas are purely typographical due to imperfections of the software programs, and do not reflect any compromise in the patient's medical care. Plan discussed with: Patient, Other (RN) My Orders Orders - CHEYENNE PIKE NP Procedure Category Date Status Time Stool Occult Blood LAB 10/27/24 Logged 08:33 Basic Metabolic Panel LAB 10/28/24 Verified 05:00 Basic Metabolic Panel LAB 10/29/24 Verified 05:00 Basic Metabolic Panel LAB 10/30/24 Verified 05:00 Complete Blood Count LAB 10/28/24 Verified 05:00 Complete Blood Count LAB 10/29/24 Verified 05:00 Complete Blood Count LAB 10/30/24 Verified 05:00 Chest Portable XY 10/28/24 Logged 05:00 Chest Portable XY 10/29/24 Logged 05:00 Chest Portable XY 10/30/24 Logged 05:00 * Neurology Consult CONS 10/27/24 Verified 08:41 Date of Service: Oct 27, 2024 Billing Provider: CHEYENNE PIKE NP Common Visit Codes: [id number] CARE 30-74 MIN, [id number] CARE-EACH +30MIN CHEYENNE PIKE NP Oct 27, 2024 08:44
[2024-10-27] MEDS: MORPHINE SULFATE 4 MG/ML SYR/VIAL IV PRN (08:57)
--- NOTE | 2024-10-27 09:32 | DVHNC2 ---
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 Therapy) Indication: Other (HD line non-functional) Room prepared for procedure: Yes Production Cloth Cutter performed hand hygien: Yes Maximal sterile barrier precau: Mask/Eye shield, Sterile gown, Cap, Sterlie gloves, Large sterlie drape Skin Preparation: Chlorhexidine gluconate, Providine iodine Skin preparation completely dr: Yes Insertion site: Left, Femoral Central line catheter type: Dialysis non-tunneled Number of lumens: 2 Central line exchanged over a: Yes Post Assessment: Proper placement Informed consent obtained: Yes Risks/benefits/alt described: Yes Date of Service: Oct 27, 2024 Billing Provider: CHEYENNE PIKE NP Common Visit Codes: PROCEDURE ONLY Procedure Codes: [id number] NON-TUNNEL CV CATH CHEYENNE PIKE NP Oct 27, 2024 09:32
--- NOTE | 2024-10-27 10:33 | DVHINCON2 ---
Date of service: Oct 27, 2024 Referring Physician Junito Reason for Consultation Encephalopathy History of Present Illness Mr. Perez is a 48 years old right-handed gentleman with a history of hypertension, dyslipidemia, multiple strokes, he was brought to the [facility] on 10/04/2024 with a chief company of recurrent syncope, in the hospital, the patient was found to have perforated viscus, and he went through surgical treatment, he was hospital course has been complicated with sepsis, septic shock, pneumonia, right upper extremity DVT. With appropriate treatment, the patient was has improved, but he does not mentally recover after the sedation was discontinued. The patient was received tracheostomy on 10/27/24, per my observation, his eyes are open, and I think he was responsive to visual threat, but he does not follow verbal commands I saw him on 08/23/2023 for TIA On 08/22/2023, after a fall at home, the patient noticed weakness in the left arm, leg, numbness in the left arm, leg and the face, he also had a very brief confusion, slurred speech, and the dizziness. His MRI at that time was negative for acute stroke though he was multiple bilateral chronic strokes In his childhood, he had periodic frequent intense throbbing, pounding headache with heightened sensitivity to lights, noise, and the nausea, he sometimes saw lights, spots before the headache. But there was no family history of headache Urinalysis, 08/22/2023: Unremarkable UDS, 08/22/2023: Negative WBC/Hb/PLT'/MCV, 08/22/2023: 10.8/13.1/184/87.4 Troponin 1 high-sensitivity, 08/22/2023: 336, 273/300 BUNs/CR, 08/22/2023: 15/1.45 GFR, 08/22/2023: 59 Liver function test, 08/22/2023: Unremarkable TG/CHO L/LDL/HDL, 08/2023: 136/166/111/39 TSH, 08/23/2023: 4.25 DONAL, 08/23/2023: 1. No evidence of intracardiac source of embolus in the study conducted today. 2. Normal valves without significant masses or change vegetations were discernible. 3. No evidence of intra-atrial shunting by bubble study and color Doppler. 4. Mild atherosclerotic plaquing was visualized in the arch of the aorta without evidence of dissection in the visualized part CT head, 10/24/2024: 1. No intracranial hemorrhage or mass effect. 2. [id number] chronic microvascular ischemic changes. 3. Old bilateral basal ganglia lacunar infarcts. 4. Small bilateral mastoid effusions. CT abdomen/pelvis, 10/04/2024: 1. Extensive intra-abdominal free air concerning for perforated viscus. Surgical consultation is recommended. 2. Enteritis is seen in multiple loops of small bowel in the left hemiabdomen. 3. Moderate abdominopelvic ascites. 4. Small right pleural effusion. CTA neck, head, 08/22/2023:1. CTA head demonstrates no evidence of large vessel occlusion, aneurysm, or significant stenosis. 2. CTA neck demonstrates no evidence of carotid or vertebral dissection or significant stenosis. 3. No noncontrast CT head was performed. 4. Additional findings as detailed above MRI head, 08/23/2023: No acute infarct, intracranial hemorrhage, mass effect, or hydrocephalus. Moderate periventricular and deep subcortical white matter T2 hyperintensities which are nonspecific, but most likely related to sequela of chronic microvascular ischemic changes (I have reviewed the MRI films with our in-house radiologist, Dr. Black, the patient has bilateral multiple subacute/chronic infarcts) Past Medical History history of hypertension, dyslipidemia, multiple strokes, Past Surgical History Left knee fracture repair Family History: Alcoholism G8 MOTHER Cardiovascular disease G8 MOTHER G8 FATHER FH: heart disease FH: lung cancer Hypertension G8 MOTHER Family History Hypertension, diabetes, his father of heart attack in the age of 40s. No history of DVT, no history of migraine headache/headache Social History He smokes, he was on heavy alcohol abuser, he used to abuse methamphetamine, cocaine Allergies: Coded Allergies: NO KNOWN ALLERGIES (Unverified , 08/22/23) Home Meds Active Scripts Nifedipine (Nifedipine Er) 30 Mg Tab, 30 MG PO BID for 30 Days, #60 TAB 6 Refills Prov:JASE HALE DO 08/25/23 Atorvastatin Calcium (ATORVASTATIN CALCIUM) 20 Mg Tab, 20 MG PO HS for 30 Days, #30 TAB 6 Refills Prov:JASE HALE DO 08/25/23 Aspirin (Aspir-Low) 81 Mg Tab, 81 MG PO DAILY for 30 Days, #30 TAB 1 Refill Prov:JASE HALE DO 08/25/23 Reported Medications Lisinopril (Lisinopril) 20 Mg Tab, 1 TAB PO DAILY for 90 Days, #90 10/06/24 Escitalopram Oxalate (ESCITALOPRAM OXALATE) 10 Mg Tab, 1 TAB PO DAILY for 30 Days, #30 10/06/24 Current Medications Current Medications Medications (Trade) Dose Ordered Sig/Wally Route PRN Reason Start Time Stop Time Status Last Admin Metoclopramide HCl (Reglan Injection) 5 mg Q6HR IV 10/26/24 12:00 10/27/24 06:18 Metoprolol Tartrate (Lopressor) 1.25 mg Q6HPRN PRN IV HEART RATE GREATER THAN 130 10/27/24 09:45 UNV Review of Systems As above, the other systems are negative Vital Signs Vital Signs Date Time Temp Pulse Resp B/P (MAP) Pulse Ox O2 Delivery O2 Flow Rate FiO2 10/27/24 09:45 116/64 10/27/24 09:35 118 18 100 30 10/27/24 08:00 Mechanical Ventilator+ 10/27/24 08:00 99.5 99.5 Physical Exam GENERAL EXAM: General: the patient is well developed and nourished. No acute distress. HEENT: Normocephalic, neck is supple, no carotid bruits. No mass. RESPIRATORY: Normal respiratory effort with symmetrical lung expansion. Lungs clear to auscultation. CARDIOVASCULAR: Regular rate and rhythm with no murmurs. S1, S2. ABDOMEN: Soft, nontender, normal bowel sound NEUROLOGICAL: MENTAL STATUS: HPI SPEECH, LANGUAGE, HIGHER CORTICAL FUNCTION: He does not vocalize. CRANIAL NERVES: #2: Intact visual ansari to confrontation. #3,4,6: Pupils are equal, round and reactive. EOMs full and conjugate. #5: Mandibular strength intact. #7: Facial muscles symmetrical and strength intact. #8: Deferred #9,10: Deferred #11: Deferred #12: Tongue midline. Deferred SENSATION: Sensation to touch and pinprick is unremarkable MOTOR: Normal muscle bulk. No fasciculations. No abnormal movements or posturing. No spontaneous extremity movement REFLEXES: Deep tendon reflexes are increased bilaterally, clonic in the left knee and bilateral ankles. No pathological reflexes. CEREBELLAR/COORDINATION: Deferred GAIT/STATION: deferred. Labs/Diagnostic Data Labs Test 10/27/24 06:07 10/27/24 05:57 10/27/24 03:10 10/26/24 20:33 Range/Units POC Glucose 77 70-106 mg/dl Blood Gas Specimen Type Arterial Blood Gas Sample Site Arterial line Blood Gas Patient Temperature 37.0 Arterial Blood Date Drawn [id number] Arterial Blood pH 7.527 H 7.350-7.450 Arterial Blood Partial Pressure CO2 34.9 L 35.0-48.0 mmHg Arterial Blood Partial Pressure O2 102.0 83.0-108.0 mmHg Arterial Blood HCO3 28.3 H 21.0-28.0 mmol/L Arterial Blood Oxygen Saturation 97.0 94.0-98.0 % Arterial Blood Base Excess 5.4 H -2.0-3.0 mmol/L Arterial Blood Oxyhemoglobin 96.6 94.0-98.0 % Arterial Blood Carboxyhemoglobin 0.1 L 0.5-1.5 % Arterial Blood Methemoglobin 0.3 0.0-1.5 % Ke Test N/a Blood Gas Total Hemoglobin 9.30 L 13.5-17.5 g/dL Blood Gas Set Respiration Rate 18.0 Blood Gas Modality Vent - ac FiO2 % 30.0 Blood Gas Tidal Volume 550.0 Blood Gas PEEP or CPAP 5.0 White Blood Count 20.5 H 4.4-10.8 10^3/uL Red Blood Count 2.89 L 4.5-5.90 10^6/uL Hemoglobin 8.7 L 13.5-17.5 g/dL Hematocrit 25.1 L 41.0-53.0 % Mean Corpuscular Volume 86.6 80.0-100.0 fL Mean Corpuscular Hemoglobin 30.1 28.0-32.0 pg Mean Corpuscular Hemoglobin Concent 34.7 32.0-36.0 g/dL Red Cell Distribution Width 15.3 H 11.8-14.3 % Platelet Count 690 H 140-450 10^3/uL Mean Platelet Volume 8.0 6.9-10.8 fL Neutrophils (%) (Auto) 78.0 37.0-80.0 % Lymphocytes (%) (Auto) 10.1 10.0-50.0 % Monocytes (%) (Auto) 9.4 0.0-12.0 % Eosinophils (%) (Auto) 1.0 0.0-7.0 % Basophils (%) (Auto) 1.5 0.0-2.0 % Neutrophils # (Auto) 16.0 H 1.6-8.6 10 ^3/uL Lymphocytes # (Auto) 2.1 0.4-5.4 10 ^3/uL Monocytes # (Auto) 1.9 H 0-1.3 10 ^3/uL Eosinophils # (Auto) 0.2 0-0.8 10 ^3/uL Basophils # (Auto) 0.3 H 0-0.2 10 ^3/uL Nucleated Red Blood Cells 0.1 % Prothrombin Time 13.0 H 9.3-11.8 sec Prothrombin Time INR 1.25 H 0.9-1.15 Activated Partial Thromboplast Time 25.8 24.5-34.5 SEC Sodium Level 140 136-145 mmol/L Potassium Level 3.9 3.5-5.1 mmol/L Chloride Level 92 L 98-107 mmol/L Carbon Dioxide Level 26 20-31 mmol/L Anion Gap 22 H 5-15 Blood Urea Nitrogen 150 *H 9-23 mg/dL Creatinine 6.83 H 0.700-1.30 mg/dL Glomerular Filtration Rate Calc 9 >90 mL/min BUN/Creatinine Ratio 22.0 H 10.0-20.0 Serum Glucose 111 H 74-106 mg/dL Calcium Level 9.0 8.7-10.4 mg/dL Magnesium Level 2.3 1.6-2.6 mg/dL Total Bilirubin 2.1 H 0.2-1.0 mg/dL Aspartate Amino Transferase (AST) 122 H 13-40 U/L Alanine Aminotransferase (ALT) 182 H 7-40 U/L Alkaline Phosphatase 180 H 46-116 U/L Total Protein 7.4 5.7-8.2 g/dL Albumin 3.5 3.2-4.8 g/dL Urine Color Light-yellow Yellow Urine Clarity Clear Clear Urine pH 7.0 5.0-9.0 Urine Specific [place] 1.014 1.001-1.035 Urine Protein 1+ H Negative Urine Ketones Negative Negative Urine Blood 1+ H Negative /uL Urine Nitrite Negative Negative Urine Bilirubin Negative Negative Urine Urobilinogen Normal Negative mg/dL Urine Leukocyte Esterase Negative Negative /uL Urine RBC 1 0 - 3 /hpf Urine Microscopic WBC 3 0-3 /HPF Urine Squamous Epithelial Cells None seen <5 /hpf Urine Bacteria Few H None Seen /hpf Urine Glucose Normal Normal mg/dL Test 10/26/24 03:20 10/24/24 03:19 10/23/24 02:45 10/20/24 03:23 Range/Units Differential Total Cells Counted 100.0 100 Neutrophils % (Manual) 79 37.0-80.0 Band Neutrophils % (Manual) 8 Lymphocytes % (Manual) 6 L 10.0-50.0 Monocytes % (Manual) 6 0-12 Eosinophils % (Manual) 1 0-7 Basophils % (Manual) 0 0.0-2.0 Metamyelocytes % (manual) 0 Myelocytes % (Manual) 0 Promyelocytes % (Manual) 0 Blast Cells % (Manual) 0 Reactive Lymphocytes 0 Platelet Estimate Markedly increased Polychromasia Slight Anisocytosis (manual) Slight Macrocytosis Slight Ovalocytes Few Large Platelets Few Giant Platelets Few Stomatocytes Moderate Clumped Platelets Few Smudge Cells 1 /100 WBC Test 10/20/24 03:22 10/19/24 03:04 10/18/24 09:21 10/17/24 10:02 Range/Units Phosphorus Level 4.0 2.4-5.1 mg/dL Iron Level 28 L 65-175 ug/dL Total Iron Binding Capacity 175 L 250-425 ug/dL Percent Iron Saturation 16.0 L 20-55 % Ferritin 728.9 H 22-322 ng/mL Triglycerides Level 333 H < 150 mg/dL Body Fluid Glucose 74 . mg/dL Body Fluid Total Protein 3.2 . g/dL Body Fluid Lactate Dehydrogenase 881 . IU/L Hepatitis A IgM Antibody Negative Hepatitis B Surface Antigen Negative Negative Hepatitis B Core IgM Antibody Negative Negative Hepatitis C Antibody Negative Negative Test 10/16/24 06:34 10/14/24 11:50 10/13/24 04:00 10/12/24 02:27 Range/Units Blood Gas Critical Value Read Back Yes Blood Gas Notified Whom Rolanda stanley np Blood Gas Notified Time [id number] Blood Gas Notified By terrazzo layer larissa ching Body Fluid Source Pleural fluid Body Fluid pH 8.0 Body Fluid WBC (Manual) 1303 H 0-200 CUMM Body Fluid RBC (Manual) 41895 H 0-2000 CUMM Body Fluid Mononuclear Cells 5 % Body Fluid Polymorphonuclear Cells 95 H 0-25 % B-Type Natriuretic Peptide 93.62 0-100 pg/mL Ammonia < 10 L 11-32 umol/L Lipase 58 H 12-53 U/L Test 10/11/24 18:00 10/11/24 07:55 10/10/24 03:15 10/08/24 06:46 Range/Units Urine Creatinine 48.05 30.0-125.0 mg/dL Urine Sodium 76 40-220 mmol/L Blood Gas Spontaneous Rate 30 Lactic Acid Level 0.8 0.4-2.0 mmol/L Specimen Drawn By Marta dry cell assembly machine tender Test 10/07/24 03:10 10/05/24 15:05 10/05/24 03:46 10/04/24 17:00 Range/Units Phospholipids Level 106 L 127-261 mg/dL Urine Mucus Few None Seen Urine Total Protein 85.0 H 1-14 mg/dL Urine Opiates Screen Neg NEGATIVE Urine Fentanyl Screen Pos NEGATIVE Urine Barbiturates Screen Neg NEGATIVE Urine Phencyclidine Screen Neg NEGATIVE Urine Amphetamines Screen Neg NEGATIVE Urine Benzodiazepines Screen Pos NEGATIVE Urine Cocaine Screen Neg NEGATIVE Urine Cannabinoids Screen Neg NEGATIVE [place] Cells Moderate Random Vancomycin Level 26.6 H 5-10 ug/mL Microcytosis Slight Test 10/04/24 08:05 10/04/24 07:01 Range/Units Reticulocyte Count (auto) 5.51 H 0.5-1.5 % Hemoglobin A1c 5.6 <5.7 % A1C Troponin I High Sensitivity 359 *H </=54 ng/L Red Blood Cell Morphology Normal Microbiology Date/Time Source Procedure Growth Status 10/23/24 09:50 Voided Urine Urine Culture - Final Complete 10/23/24 09:50 Blood Blood Culture - Preliminary NO GROWTH AFTER 72 HOURS OF INCUBATION. Resulted 10/18/24 09:21 Pleural Fluid Gram Stain - Final Complete 10/18/24 09:21 Pleural Fluid Body Fluid Culture - Final Complete 10/16/24 12:05 Bronchial Washings Gram Stain - Final Complete 10/16/24 12:05 Bronchial Washings Respiratory Culture - Final Complete 10/04/24 17:10 Nose MRSA Screen - Final Complete Assessment Altered mental status Metabolic encephalopathy secondary to sepsis, septic shock, pneumonia Hypoxic encephalopathy Viscus perforation status post surgical repair Respiratory failure stopped post tracheostomy Multiple strokes Secondary to history methamphetamine, cocaine, alcohol use History of alcohol abuse History of cocaine, methamphetamine abuse Hyperreflexia secondary to multiple strokes Plan/Recommendation Monitoring Supportive treatment ICU care Stabilize vitals Respiratory support Follow-up labs EEG MRI head IV antibiotics Resume Aspirin 81 mg daily later Quit tobacco smoking No more alcohol, street drug abuse Stroke risk factors discussed More recommended per clinical course Plan discussed with: Other LEANDRO BLACK MD Oct 27, 2024 10:33
[2024-10-27] MEDS ORDERED: fentaNYL CITRATE 5 ML ONE (11:08)
--- NOTE | 2024-10-27 12:08 | DVHPN2 ---
Progress Note Date Seen: Oct 27, 2024 Has the PT tested + for MRSA If YES, has PT been informed?: No Medical Necessity Reason Pt with a Central, PICC or Fol: Yes The following are medically ne: Central Line, Gómez Catheter Reason for gómez catheter: Strict I&O Subjective Review of Systems: Deferred Objective vital signs Vital Sign Date Time Temp Pulse Resp B/P (MAP) Pulse Ox O2 Delivery O2 Flow Rate FiO2 10/27/24 10:00 20 100 Mechanical Ventilator+ 30 30 10/27/24 10:00 124 10/27/24 09:45 116/64 10/27/24 08:00 99.5 99.5 Total Intake and Output 10/26/24 10/26/24 10/27/24 15:00 23:00 07:00 Intake Total 29.689 ml 300 ml 80 ml Output Total 1730 ml 1480 ml Balance 29.689 ml -1430 ml -1400 ml medications Current Medications Medications Dose Ordered Sig/Wally Route Start Time Stop Time Status Last Admin Dose Admin Fentanyl Citrate 250 ml @ 2.5 mls/hr Q24H IV 10/04/24 09:45 10/22/24 00:32 22.5 MLS/HR Ondansetron HCl 4 mg Q4HP PRN IV 10/04/24 11:45 Morphine Sulfate 2 mg Q4HPRN PRN IV 10/04/24 11:45 Cancel Nitroglycerin 0.4 mg Q5MINP PRN SL 10/04/24 11:45 Morphine Sulfate 2 mg Q30M PRN IV 10/04/24 11:45 Cancel Lorazepam 50 mg/ Sodium Chloride 50 ml @ 1 mls/hr Q24H IV 10/04/24 18:15 Cancel Midazolam HCl 50 ml @ 1 mls/hr Q24H IV 10/04/24 18:30 10/22/24 00:31 6 MLS/HR Amino Acids 0 ml @ 0 mls/hr PER PHARMACY IV 10/05/24 14:30 UNV Diagnostic Test (Pha) 1 strip Q6HR 10/05/24 18:00 10/27/24 06:28 1 STRIP Insulin Human Regular FOLLOW SLIDING SCALE Q6HR SC 10/05/24 18:00 10/25/24 11:04 2 UNITS Dextrose 50 ml UD IV 10/05/24 14:45 Meropenem 50 ml @ 17 mls/hr Q12HR IV 10/07/24 10:00 UNV Labetalol HCl 10 mg Q2HPRN PRN IV 10/08/24 09:30 Pantoprazole Sodium 40 mg DAILY IV 10/12/24 10:00 10/27/24 09:46 40 MG Levalbuterol HCl 0.625 mg Q6HR NEB 10/13/24 12:00 10/27/24 05:54 0.625 MG Ipratropium [place] 0.5 mg Q6HR NEB 10/13/24 12:00 10/27/24 05:54 0.5 MG Norepinephrine Bitartrate 32 mg/ Sodium Chloride 250 ml @ 0.938 mls/ hr Q24H IV 10/14/24 10:15 10/25/24 19:15 0.938 MLS/HR Epoetin Roger-epbx 10,000 unit MWF SC 10/19/24 17:00 10/27/24 09:46 10,000 UNIT Bumetanide 1 mg DAILY IV 10/22/24 10:00 10/27/24 09:45 1 MG Morphine Sulfate 2 mg Q4HPRN PRN IV 10/21/24 11:30 10/27/24 08:57 2 MG Morphine Sulfate 2 mg Q30M PRN IV 10/21/24 11:30 Nicardipine/ Sodium Chloride 200 ml @ 50 mls/hr Q4H IV 10/22/24 08:45 10/22/24 08:47 50 MLS/HR Metoprolol Tartrate 25 mg BID PO 10/22/24 10:00 10/26/24 21:55 25 MG Acetaminophen 650 mg Q6HP PRN GT 10/22/24 09:00 10/24/24 01:45 650 MG Linezolid 300 ml @ 150 mls/hr Q12HR IV 10/24/24 10:00 10/27/24 09:44 150 MLS/HR Piperacillin Sod/ Tazobactam Sod 50 ml @ 12.5 mls/hr Q8H IV 10/24/24 16:00 10/27/24 07:41 12.5 MLS/HR Enteral Nutritional Formula 1,000 ml 30ML/HR GT 10/24/24 09:15 10/24/24 09:46 1,000 ML Metoclopramide HCl 5 mg Q6HR IV 10/26/24 12:00 10/27/24 06:18 5 MG Metoprolol Tartrate 1.25 mg Q6HPRN PRN IV 10/27/24 09:45 Examination: GENERAL:Abnormal, LUNGS:Abnormal, CVS:Abnormal, ABDOMEN:Abnormal laboratory and microbiology Laboratory Tests 10/27/24 03:10 Test 10/27/24 03:10 Range/Units Serum Glucose 111 H 74-106 mg/dL Microbiology Date/Time Source Procedure Growth Status 10/23/24 09:50 Voided Urine Urine Culture - Final Complete 10/23/24 09:50 Blood Blood Culture - Preliminary NO GROWTH AFTER 72 HOURS OF INCUBATION. Resulted 10/18/24 09:21 Pleural Fluid Gram Stain - Final Complete 10/18/24 09:21 Pleural Fluid Body Fluid Culture - Final Complete 10/16/24 12:05 Bronchial Washings Gram Stain - Final Complete 10/16/24 12:05 Bronchial Washings Respiratory Culture - Final Complete 10/04/24 17:10 Nose MRSA Screen - Final Complete Problem List/Assessment/Plan Problem List/Assessment/Plan 48-year-old male presents to the hospital abdominal pain patient was diagnosed with acute gastric perforation status post surgery . Acute kidney injury hemodynamically mediated requiring acute inpatient hemodialysis Acute respiratory failure Perforated gastric ulcer status post exploratory laparoscopic surgery Hypokalemia Anemia due to chronic disease/inflammation HD today Epogen keep MAP > 65 Albumin for support Avoid hypotension Strict Is&Os Plan discussed with: Other Dietary Evaluation Review Comments: 1. Continue TPN to meet at least 75% estimated needs 2. Continue current POC Expected Outcomes/Goals: FU 2-3 days to meet adequate energy & protein within 7 days of NPO Protein Calorie Malnutrition: Severe (rn) CC Plasma Assessment Blood Product Administration S: [id number] ISABELLE CASTELLANO MD Oct 27, 2024 12:08
--- NOTE | 2024-10-27 13:11 | DVH ---
CHEST RADIOGRAPH Indication: S/P tracheostomy Technique: Single frontal view of the chest was obtained COMPARISON: XY CHEST XRAY 1 VIEW on DOS: 10/27/24, XY CHEST XRAY 1 VIEW on DOS: 10/26/24, XY CHEST XRAY 1 VIEW on DOS: 10/25/24, XY CHEST XRAY 1 VIEW on DOS: 10/24/24, XY CHEST PORTABLE on DOS: 10/22/24 FINDINGS: Lines and Tubes: Tracheostomy and enteric catheter in satisfactory position. Right chest tube in sat isfactory position. Left central venous catheter in satisfactory position. Lungs: Multifocal airspace disease. Pleura: No effusion. No pneumothorax. Cardiomediastinal contours: Unremarkable Bones: Unremarkable IMPRESSION: Lines and tubes in satisfactory position. No significant interval change.
--- NOTE | 2024-10-27 13:11 | DVHOP ---
DATE OF SURGERY: 10/27/2024 PREOPERATIVE DIAGNOSIS: Ventilator-dependent respiratory failure. POSTOPERATIVE DIAGNOSIS: Ventilator-dependent respiratory failure. SURGEON: Angus Velasco MD BUSINESS SOLUTIONS DIRECTOR: Jack Desir NP ANESTHESIA: General. SURGEON: Dr. Soto. PROCEDURE: Tracheostomy. DESCRIPTION OF PROCEDURE: Under general anesthesia with the patient's skin prepped and draped, a vertical incision was made over the anterior surface of the neck. The strap muscles divided in the midline and retracted laterally. The thyroid gland displaced superiorly. Hemostasis was meticulously accomplished. The tracheal tissues were cleansed with a Kittner. An incision in an H-shape was formed between the fourth and fifth ring. The wings of this incision were then secured with a #0 Vicryl, which was brought out through the incision and eventually secured to the tracheostomy bridge. The tracheotomy was then dilated and the anesthesiologist pulled out the endotracheal tube as we advanced the tracheostomy tube into its final position. This was done after the patient's inhaled gas was changed to room air to minimize the likelihood of an airway fire. The tracheostomy tube reaching its final position resulted in immediate recapture of CO2 and return of normal ventilation. The patient remained in unchanged clinical condition at the termination of the procedure, left the operating room following an accurate needle and sponge count. Chest x-ray was ordered and is pending at the time of this dictation. The patient's , Anastasia, was thoroughly informed at [phone]. MD NISHANT Gibson/RAISSA/MIKHAIL TID: [id number] RECEIPT: [id number]
--- NOTE | 2024-10-27 13:16 | DVHPN2 ---
Progress Note Date Seen: Oct 27, 2024 Has the PT tested + for MRSA If YES, has PT been informed?: No Medical Necessity Reason Pt with a Central, PICC or Fol: Yes The following are medically ne: Central Line, Gómez Catheter Reason for gómez catheter: Strict I&O Objective vital signs Vital Sign Date Time Temp Pulse Resp B/P (MAP) Pulse Ox O2 Delivery O2 Flow Rate FiO2 10/27/24 13:00 123 22 123/62 (82) 98 110/63 (79) 10/27/24 12:53 30 10/27/24 11:00 99.1 99.1 10/27/24 10:00 Mechanical Ventilator+ Total Intake and Output 10/26/24 10/26/24 10/27/24 15:00 23:00 07:00 Intake Total 29.689 ml 300 ml 80 ml Output Total 1730 ml 1480 ml Balance 29.689 ml -1430 ml -1400 ml medications Current Medications Medications Dose Ordered Sig/Wally Route Start Time Stop Time Status Last Admin Dose Admin Fentanyl Citrate 250 ml @ 2.5 mls/hr Q24H IV 10/04/24 09:45 10/22/24 00:32 22.5 MLS/HR Ondansetron HCl 4 mg Q4HP PRN IV 10/04/24 11:45 Morphine Sulfate 2 mg Q4HPRN PRN IV 10/04/24 11:45 Cancel Nitroglycerin 0.4 mg Q5MINP PRN SL 10/04/24 11:45 Morphine Sulfate 2 mg Q30M PRN IV 10/04/24 11:45 Cancel Lorazepam 50 mg/ Sodium Chloride 50 ml @ 1 mls/hr Q24H IV 10/04/24 18:15 Cancel Midazolam HCl 50 ml @ 1 mls/hr Q24H IV 10/04/24 18:30 10/22/24 00:31 6 MLS/HR Amino Acids 0 ml @ 0 mls/hr PER PHARMACY IV 10/05/24 14:30 UNV Diagnostic Test (Pha) 1 strip Q6HR 10/05/24 18:00 10/27/24 12:00 1 STRIP Insulin Human Regular FOLLOW SLIDING SCALE Q6HR SC 10/05/24 18:00 10/25/24 11:04 2 UNITS Dextrose 50 ml UD IV 10/05/24 14:45 Meropenem 50 ml @ 17 mls/hr Q12HR IV 10/07/24 10:00 UNV Labetalol HCl 10 mg Q2HPRN PRN IV 10/08/24 09:30 Pantoprazole Sodium 40 mg DAILY IV 10/12/24 10:00 10/27/24 09:46 40 MG Levalbuterol HCl 0.625 mg Q6HR NEB 10/13/24 12:00 10/27/24 12:53 0.625 MG Ipratropium Likely 0.5 mg Q6HR NEB 10/13/24 12:00 10/27/24 12:53 0.5 MG Norepinephrine Bitartrate 32 mg/ Sodium Chloride 250 ml @ 0.938 mls/ hr Q24H IV 10/14/24 10:15 10/25/24 19:15 0.938 MLS/HR Epoetin Roger-epbx 10,000 unit MWF SC 10/19/24 17:00 10/27/24 09:46 10,000 UNIT Bumetanide 1 mg DAILY IV 10/22/24 10:00 10/27/24 09:45 1 MG Morphine Sulfate 2 mg Q4HPRN PRN IV 10/21/24 11:30 10/27/24 08:57 2 MG Morphine Sulfate 2 mg Q30M PRN IV 10/21/24 11:30 Nicardipine/ Sodium Chloride 200 ml @ 50 mls/hr Q4H IV 10/22/24 08:45 10/22/24 08:47 50 MLS/HR Metoprolol Tartrate 25 mg BID PO 10/22/24 10:00 10/26/24 21:55 25 MG Acetaminophen 650 mg Q6HP PRN GT 10/22/24 09:00 10/24/24 01:45 650 MG Linezolid 300 ml @ 150 mls/hr Q12HR IV 10/24/24 10:00 10/27/24 09:44 150 MLS/HR Piperacillin Sod/ Tazobactam Sod 50 ml @ 12.5 mls/hr Q8H IV 10/24/24 16:00 10/27/24 07:41 12.5 MLS/HR Enteral Nutritional Formula 1,000 ml 30ML/HR GT 10/24/24 09:15 10/24/24 09:46 1,000 ML Metoclopramide HCl 5 mg Q6HR IV 10/26/24 12:00 10/27/24 06:18 5 MG Metoprolol Tartrate 1.25 mg Q6HPRN PRN IV 10/27/24 09:45 laboratory and microbiology Laboratory Tests 10/27/24 03:10 Test 10/27/24 03:10 Range/Units Serum Glucose 111 H 74-106 mg/dL Problem List/Assessment/Plan Problem List/Assessment/Plan 10/10/24 patient had exploratory operation with closure of perforated peptic ulceration about 5 days ago, now concern about possible cholecystitis. GB sludge,GB wall thickened and surounding edema,.LFT's elevated. [patient has history of heavy alcohol use(spouse report). LFTs elevation could be due to liver Ds but cholecystostomy is a reasonable next step, will follow with you 10/14/24 patient appears "surgically stable", will get gastrografin UGI prior to resuming gastric feedings 10/16/24 GASTROGRAFGIN UGI POSSIBLY WITH PERSISTENT LEAK FROM REPAIRED PYLORIC PERFORATION, I HAVE ORDERED A CT SCAN FOR CONFIRMATION 10/24/24 clinically unchanged,being weaned off ventilator, abdomen non distended, tolerating tube feedings, having BM's, KWAN drains with minimal clear drainage, drains removed. 10/26/24 large gastric residual volumes, suspect gastroparesis, vent settings acceptable for tracheostomy, planned for tomorrow 10/27/24 post tracheostomy CXR shows tracheostomy in good locaTION ABOVE THE EVELIA, NO EVIDENCE OF PNEUMOTHORAX OR MEDIASTINAL; WIDENING. i HAVE CALLED PATIENT'S Plan discussed with: Other Dietary Evaluation Review Comments: 1. Continue TPN to meet at least 75% estimated needs 2. Continue current POC Expected Outcomes/Goals: FU 2-3 days to meet adequate energy & protein within 7 days of NPO Protein Calorie Malnutrition: Severe (rn) LOBO BOSWELL MD Oct 27, 2024 13:16
[2024-10-27] MEDS: SODIUM CHL 0.9% 1000 ML BAG XX ONE (13:25)
[2024-10-27] MEDS: ALBUMIN 25% 100 ML IV STA (14:12)
[2024-10-27 16:53] LABS: Hematocrit 27.4 % (41.0-53.0); Hemoglobin 9.4 g/dL (13.5-17.5); Mean Corpuscular Hemoglobin 30.4 pg (28.0-32.0); Mean Corpuscular Volume 88.6 fL (80.0-100.0)
[2024-10-27 17:02] LABS: Sodium 141 mmol/L (136-145)
[2024-10-27 17:03] LABS: Anion Gap 18 (5-15); Calcium 10.1 mg/dL (8.7-10.4); Carbon Dioxide 25 mmol/L (20-31)
[2024-10-27 17:04] LABS: Chloride 98 mmol/L (98-107); Potassium 3.3 mmol/L (3.5-5.1)
[2024-10-27 17:08] LABS: BUN/Creatinine Ratio 16.8 (10.0-20.0)
[2024-10-27 17:10] LABS: Blood Urea Nitrogen 52 mg/dL (9-23); Glucose 116 mg/dL (74-106)
[2024-10-27 17:11] LABS: Anisocytosis Slight; Total Cells Counted 100.0 (100)
[2024-10-27] MEDS: METOPROLOL TARTRATE 1MG/1ML-5ML VIAL IV PRN (18:11)
[2024-10-27] MEDS: POTASSIUM CHL 20MEQ/100ML 100 ML IV ONE (20:40)
--- NOTE | 2024-10-27 21:27 | DVHPN2 ---
Progress Note - Dictate Date Seen: Oct 27, 2024 Has the PT tested + for MRSA If YES, has PT been informed?: No Medical Necessity Reason Pt with a Central, PICC or Fol: Yes The following are medically ne: Central Line, Gómez Catheter Reason for gómez catheter: Strict I&O Subjective Patient seen and examined at bedside. On mechanical ventilator. S/p trach Overnight events reviewed. vital signs Vital Sign Date Time Temp Pulse Resp B/P (MAP) Pulse Ox O2 Delivery O2 Flow Rate FiO2 10/27/24 20:30 127 20 112/60 (77) 100 30 10/27/24 20:00 Mechanical Ventilator+ 10/27/24 16:00 98.8 98.8 Total Intake and Output 10/26/24 10/26/24 10/27/24 15:00 23:00 07:00 Intake Total 29.689 ml 300 ml 80 ml Output Total 1730 ml 1480 ml Balance 29.689 ml -1430 ml -1400 ml medications Current Medications Medications Dose Ordered Sig/Wally Route Start Time Stop Time Status Last Admin Dose Admin Fentanyl Citrate 250 ml @ 2.5 mls/hr Q24H IV 10/04/24 09:45 10/22/24 00:32 22.5 MLS/HR Ondansetron HCl 4 mg Q4HP PRN IV 10/04/24 11:45 Morphine Sulfate 2 mg Q4HPRN PRN IV 10/04/24 11:45 Cancel Nitroglycerin 0.4 mg Q5MINP PRN SL 10/04/24 11:45 Morphine Sulfate 2 mg Q30M PRN IV 10/04/24 11:45 Cancel Lorazepam 50 mg/ Sodium Chloride 50 ml @ 1 mls/hr Q24H IV 10/04/24 18:15 Cancel Midazolam HCl 50 ml @ 1 mls/hr Q24H IV 10/04/24 18:30 10/22/24 00:31 6 MLS/HR Amino Acids 0 ml @ 0 mls/hr PER PHARMACY IV 10/05/24 14:30 UNV Diagnostic Test (Pha) 1 strip Q6HR 10/05/24 18:00 10/27/24 17:59 1 STRIP Insulin Human Regular FOLLOW SLIDING SCALE Q6HR SC 10/05/24 18:00 10/25/24 11:04 2 UNITS Dextrose 50 ml UD IV 10/05/24 14:45 Meropenem 50 ml @ 17 mls/hr Q12HR IV 10/07/24 10:00 UNV Labetalol HCl 10 mg Q2HPRN PRN IV 10/08/24 09:30 Pantoprazole Sodium 40 mg DAILY IV 10/12/24 10:00 10/27/24 09:46 40 MG Levalbuterol HCl 0.625 mg Q6HR NEB 10/13/24 12:00 10/27/24 18:25 0.625 MG Ipratropium [place] 0.5 mg Q6HR NEB 10/13/24 12:00 10/27/24 18:25 0.5 MG Norepinephrine Bitartrate 32 mg/ Sodium Chloride 250 ml @ 0.938 mls/ hr Q24H IV 10/14/24 10:15 10/25/24 19:15 0.938 MLS/HR Epoetin Roger-epbx 10,000 unit MWF SC 10/19/24 17:00 10/27/24 09:46 10,000 UNIT Bumetanide 1 mg DAILY IV 10/22/24 10:00 10/27/24 09:45 1 MG Morphine Sulfate 2 mg Q4HPRN PRN IV 10/21/24 11:30 10/27/24 08:57 2 MG Morphine Sulfate 2 mg Q30M PRN IV 10/21/24 11:30 Nicardipine/ Sodium Chloride 200 ml @ 50 mls/hr Q4H IV 10/22/24 08:45 10/22/24 08:47 50 MLS/HR Metoprolol Tartrate 25 mg BID PO 10/22/24 10:00 10/26/24 21:55 25 MG Acetaminophen 650 mg Q6HP PRN GT 10/22/24 09:00 10/24/24 01:45 650 MG Linezolid 300 ml @ 150 mls/hr Q12HR IV 10/24/24 10:00 10/27/24 09:44 150 MLS/HR Piperacillin Sod/ Tazobactam Sod 50 ml @ 12.5 mls/hr Q8H IV 10/24/24 16:00 10/27/24 16:36 12.5 MLS/HR Enteral Nutritional Formula 1,000 ml 30ML/HR GT 10/24/24 09:15 10/24/24 09:46 1,000 ML Metoclopramide HCl 5 mg Q6HR IV 10/26/24 12:00 10/27/24 06:18 5 MG Metoprolol Tartrate 1.25 mg Q6HPRN PRN IV 10/27/24 09:45 10/27/24 18:11 1.25 MG objective Gen.: Patient lying in bed in medical ICU. S/p trach. On mechanical ventilator. Head: Normocephalic, atraumatic. Eyes: PERRLA. Ears: Normal external anatomy. Throat: Endotracheal tube and orogastric tube in place. Neck: Trach in place. Chest: Transmitted breath sounds bilaterally. Decreased air entry bilaterally. No wheezing. Bibasilar crackles. Cardiovascular: Positive S1, positive S2. Regular rate and rhythm. Abdomen: Positive bowel sounds in all 4 quadrants. Soft, nontender, nondistended. : Gómez in place. Normal external genitalia. Rectal: Deferred. Skin: Warm, dry. Intact. Extremities: 2+ radial pulses bilaterally. No lower extremity edema. Neuro: Off sedation laboratory and microbiology Laboratory Tests 10/27/24 16:30 Test 10/27/24 16:30 Range/Units Serum Glucose 116 H 74-106 mg/dL Assessment/Plan Impression: Acute hypoxic respiratory failure On mechanical ventilator S/p tracheostomy Septic shock Perforated viscus Nicotine dependence Events: Vent support On AC mode; RR 18, VT 550, PEEP 5, Fio2 30% Remains off sedation S/p tracheostomy today. Trach care per RT. Surgery recommendations appreciated. Hemodialysis was performed yesterday ABG notable for alkalemia. CXR today demonstrates multifocal opacities. Devices in place. No pleural effusion or pneumothorax. Off pressors, hemodynamically stable. Blood pressure control Bumex IV for diuresis. Monitor renal function Monitor electrolytes. Supplement as necessary. Monitor ins and outs. Continue antibiotics - Zyvox/Zosyn Follow up cultures Continue bronchodilators Tube feeds for nutritional support Monitor hemoglobin Monitor chest tube output Monitor KWAN + trish drain output Protonix for GI prophylaxis Therapeutic Lovenox for DVT prophylaxis Labs and imaging reviewed. Rest of plan as noted below. Plan: On mechanical ventilator. S/p tracheostomy Trach care per RT On AC mode; RR 18, VT 550, PEEP 5, Fio2 30% Titrate FIO2 to keep O2 saturation above 90%. VAP bundle. Daily ABG and CXR while intubated Off sedation Continue antibiotics. Continue bronchodilators Pressors if necessary for hemodynamic support Titrate to keep mean arterial pressure greater than 65 mmHg. Diurese Monitor renal function Monitor electrolytes. Supplement as necessary. Monitor ins and outs. GI prophylaxis. DVT prophylaxis. Prognosis: Poor given patient's multiple co-morbidities. Condition: Critical Rest of plan per hospitalist and other consultants. A total of 35 minutes of critical care time was spent reviewing the patient record, examining the patient, making a diagnostic and therapeutic plan, discussing this plan with the medical personnel, following up on diagnostic studies and following the patient for clinical stability excluding any and all procedures. At least 50% of this time was spent in direct, [id number] contact. Thank you, NIDIA Caldera, for allowing me to participate in this patient's care. Further recommendations will depend on the patient's clinical course. Please do not hesitate to contact me if you have any questions or concerns. This medical document was created using an electronic medical record system with [employer] dictation system. Although these documentations are being carefully reviewed, there may still be some phonetic and typographical changes. The errors are purely typographical, due to imperfection on the software program, and do not reflect any compromise in the patient's medical care. Dietary Evaluation Review Comments: 1. Continue TPN to meet at least 75% estimated needs 2. Continue current POC Expected Outcomes/Goals: FU 2-3 days to meet adequate energy & protein within 7 days of NPO Protein Calorie Malnutrition: Severe (rn) Plan discussed with: Other (RN) Critical Care Time(min): 35 CC Plasma Assessment Blood Product Administration S: [id number] ARIE LOPEZ MD Oct 27, 2024 21:27
[2024-10-28] VITALS (110 sets, daily range): BP systolic 76–158; BP diastolic 35–85; PULSE 87–129; RESP 12–30; TEMP 99.5–100.2; O2SAT 91–100
[2024-10-28 04:14] LABS: Hematocrit 24.0 % (41.0-53.0); Hemoglobin 8.0 g/dL (13.5-17.5); Mean Corpuscular Hemoglobin 29.7 pg (28.0-32.0); Mean Corpuscular Volume 89.3 fL (80.0-100.0); Nucleated Red Blood Cells % 0.0 %
[2024-10-28 04:29] LABS: Anion Gap 19 (5-15); Calcium 9.0 mg/dL (8.7-10.4); Carbon Dioxide 25 mmol/L (20-31); Potassium 3.8 mmol/L (3.5-5.1); Sodium 140 mmol/L (136-145)
[2024-10-28 04:30] LABS: Chloride 96 mmol/L (98-107)
--- NOTE | 2024-10-28 04:31 | DVH ---
INDICATION: s/p trach, pna TECHNIQUE: Single frontal view of the chest was obtained COMPARISON: XY CHEST XRAY 1 VIEW on DOS: 10/27/24, XY CHEST XRAY 1 VIEW on DOS: 10/27/24, XY CHEST XRAY 1 VIEW on DOS: 10/26/24, XY CHEST XRAY 1 VIEW on DOS: 10/25/24, XY CHEST XRAY 1 VIEW on DOS: 10/24/24, XY CH EST XRAY 1 VIEW on DOS: 10/27/24 FINDINGS: Lines and Tubes: Tracheostomy and enteric catheter in satisfactory position. Right chest tube in sat isfactory position. Left central venous catheter in satisfactory position. Lungs: Multifocal airspace disease. Pleura: No effusion. No pneumothorax. Cardiomediastinal contours: Unremarkable Bones: Unremarkable IMPRESSION: Lines and tubes in satisfactory position. No significant interval change.
[2024-10-28 04:35] LABS: BUN/Creatinine Ratio 15.9 (10.0-20.0); Glucose 99 mg/dL (74-106)
[2024-10-28 04:36] LABS: Blood Urea Nitrogen 72 mg/dL (9-23)
[2024-10-28] MEDS: SODIUM CHL 0.9% 1000 ML BAG XX ONE (07:45)
--- NOTE | 2024-10-28 08:22 | DVHPN2 ---
Progress Note - Dictate Date Seen: Oct 28, 2024 Has the PT tested + for MRSA If YES, has PT been informed?: No Medical Necessity Reason Pt with a Central, PICC or Fol: Yes The following are medically ne: Central Line, Gómez Catheter Reason for gómez catheter: Strict I&O Subjective Mr. Perez is a 48 years old right-handed gentleman with a history of hypertension, dyslipidemia, multiple strokes, he was brought to the [facility] on 10/04/2024 with a chief company of recurrent syncope, in the hospital, the patient was found to have perforated viscus, and he went through surgical treatment, he was hospital course has been complicated with sepsis, septic shock, pneumonia, right upper extremity DVT. With appropriate treatment, the patient has improved, but he does not mentally recover as anticipated. I saw him on 08/23/2023 for TIA I have seen and examined the patient, discussed with his nurse and the medical staff, he is awake, he does not vocalize, he is able to follow verbal commands, he can move the left-handed slightly He has bleeding from the NG tube, and he had tar stool Urinalysis, 08/22/2023: Unremarkable UDS, 08/22/2023: Negative WBC/Hb/PLT'/MCV, 08/22/2023: 10.8/13.1/184/87.4, 10/28/2024: 15/8/487/89.3 Troponin 1 high-sensitivity, 08/22/2023: 336, 273/300 BUNs/CR, 08/22/2023: 15/1.45 GFR, 08/22/2023: 59 Liver function test, 08/22/2023: Unremarkable TG/CHO L/LDL/HDL, 08/2023: 136/166/111/39 TSH, 08/23/2023: 4.25 DONAL, 08/23/2023: 1. No evidence of intracardiac source of embolus in the study conducted today. 2. Normal valves without significant masses or change vegetations were discernible. 3. No evidence of intra-atrial shunting by bubble study and color Doppler. 4. Mild atherosclerotic plaquing was visualized in the arch of the aorta without evidence of dissection in the visualized part CT head, 10/24/2024: 1. No intracranial hemorrhage or mass effect. 2. [id number] chronic microvascular ischemic changes. 3. Old bilateral basal ganglia lacunar infarcts. 4. Small bilateral mastoid effusions. CT abdomen/pelvis, 10/04/2024: 1. Extensive intra-abdominal free air concerning for perforated viscus. Surgical consultation is recommended. 2. Enteritis is seen in multiple loops of small bowel in the left hemiabdomen. 3. Moderate abdominopelvic ascites. 4. Small right pleural effusion. CTA neck, head, 08/22/2023:1. CTA head demonstrates no evidence of large vessel occlusion, aneurysm, or significant stenosis. 2. CTA neck demonstrates no evidence of carotid or vertebral dissection or significant stenosis. 3. No noncontrast CT head was performed. 4. Additional findings as detailed above MRI head, 08/23/2023: No acute infarct, intracranial hemorrhage, mass effect, or hydrocephalus. Moderate periventricular and deep subcortical white matter T2 hyperintensities which are nonspecific, but most likely related to sequela of chronic microvascular ischemic changes (I have reviewed the MRI films with our in-house radiologist, Dr. Black, the patient has bilateral multiple subacute/chronic infarcts) vital signs Vital Sign Date Time Temp Pulse Resp B/P (MAP) Pulse Ox O2 Delivery O2 Flow Rate FiO2 10/28/24 08:00 116 25 116/66 (83) 100 30 10/28/24 07:54 Mechanical Ventilator+ 10/28/24 04:00 99.5 99.5 Total Intake and Output 10/27/24 10/27/24 10/28/24 15:00 23:00 07:00 Intake Total 307.50 ml 408.438 ml 99.683 ml Output Total 1150 ml 730 ml Balance 307.50 ml -741.562 ml -630.317 ml medications Current Medications Medications Dose Ordered Sig/Wally Route Start Time Stop Time Status Last Admin Dose Admin Fentanyl Citrate 250 ml @ 2.5 mls/hr Q24H IV 10/04/24 09:45 10/22/24 00:32 22.5 MLS/HR Ondansetron HCl 4 mg Q4HP PRN IV 10/04/24 11:45 Morphine Sulfate 2 mg Q4HPRN PRN IV 10/04/24 11:45 Cancel Nitroglycerin 0.4 mg Q5MINP PRN SL 10/04/24 11:45 Morphine Sulfate 2 mg Q30M PRN IV 10/04/24 11:45 Cancel Lorazepam 50 mg/ Sodium Chloride 50 ml @ 1 mls/hr Q24H IV 10/04/24 18:15 Cancel Midazolam HCl 50 ml @ 1 mls/hr Q24H IV 10/04/24 18:30 10/22/24 00:31 6 MLS/HR Amino Acids 0 ml @ 0 mls/hr PER PHARMACY IV 10/05/24 14:30 UNV Diagnostic Test (Pha) 1 strip Q6HR 10/05/24 18:00 10/28/24 06:00 1 STRIP Insulin Human Regular FOLLOW SLIDING SCALE Q6HR SC 10/05/24 18:00 10/25/24 11:04 2 UNITS Dextrose 50 ml UD IV 10/05/24 14:45 Meropenem 50 ml @ 17 mls/hr Q12HR IV 10/07/24 10:00 UNV Labetalol HCl 10 mg Q2HPRN PRN IV 10/08/24 09:30 Pantoprazole Sodium 40 mg DAILY IV 10/12/24 10:00 10/27/24 09:46 40 MG Levalbuterol HCl 0.625 mg Q6HR NEB 10/13/24 12:00 10/28/24 06:38 0.625 MG Ipratropium [place] 0.5 mg Q6HR NEB 10/13/24 12:00 10/28/24 06:38 0.5 MG Norepinephrine Bitartrate 32 mg/ Sodium Chloride 250 ml @ 0.938 mls/ hr Q24H IV 10/14/24 10:15 10/25/24 19:15 0.938 MLS/HR Epoetin Roger-epbx 10,000 unit MWF [place] 10/19/24 17:00 10/27/24 09:46 10,000 UNIT Bumetanide 1 mg DAILY IV 10/22/24 10:00 10/27/24 09:45 1 MG Morphine Sulfate 2 mg Q4HPRN PRN IV 10/21/24 11:30 10/27/24 08:57 2 MG Morphine Sulfate 2 mg Q30M PRN IV 10/21/24 11:30 Nicardipine/ Sodium Chloride 200 ml @ 50 mls/hr Q4H IV 10/22/24 08:45 10/22/24 08:47 50 MLS/HR Metoprolol Tartrate 25 mg BID PO 10/22/24 10:00 10/27/24 22:27 25 MG Acetaminophen 650 mg Q6HP PRN GT 10/22/24 09:00 10/24/24 01:45 650 MG Linezolid 300 ml @ 150 mls/hr Q12HR IV 10/24/24 10:00 10/27/24 22:27 150 MLS/HR Piperacillin Sod/ Tazobactam Sod 50 ml @ 12.5 mls/hr Q8H IV 10/24/24 16:00 10/28/24 07:12 12.5 MLS/HR Enteral Nutritional Formula 1,000 ml 30ML/HR GT 10/24/24 09:15 10/24/24 09:46 1,000 ML Metoclopramide HCl 5 mg Q6HR IV 10/26/24 12:00 10/27/24 06:18 5 MG Metoprolol Tartrate 1.25 mg Q6HPRN PRN IV 10/27/24 09:45 10/27/24 18:11 1.25 MG objective General: the patient is well developed and nourished. No acute distress. MENTAL STATUS: Subjective SPEECH, LANGUAGE, HIGHER CORTICAL FUNCTION: He does not vocalize. CRANIAL NERVES:Intact visual ansari to confrontation (visual thread). Pupils are equal, round and reactive. EOMs full and conjugate. Mandibular strength intact. Facial muscles symmetrical and strength intact. SENSATION: Sensation to touch and pinprick is unremarkable MOTOR: Normal muscle bulk. No fasciculations. No abnormal movements or posturing. Moves the left-hand slightly REFLEXES: Deep tendon reflexes are increased bilaterally, clonic in the left knee and bilateral ankles. No pathological reflexes. CEREBELLAR/COORDINATION: Deferred GAIT/STATION: deferred laboratory and microbiology Laboratory Tests 10/28/24 03:12 Test 10/28/24 03:12 Range/Units Serum Glucose 99 74-106 mg/dL Problem List Altered mental status Metabolic encephalopathy secondary to sepsis, septic shock, pneumonia Hypoxic encephalopathy Viscus perforation status post surgical repair GI bleeding Anemia Respiratory failure stopped post tracheostomy Multiple strokes Secondary to history methamphetamine, cocaine, alcohol use History of alcohol abuse History of cocaine, methamphetamine abuse Hyperreflexia secondary to multiple strokes Assessment/Plan Monitoring Supportive treatment ICU care Stabilize vitals Respiratory support Follow-up labs EEG MRI head IV antibiotics Resume Aspirin 81 mg daily later Quit tobacco smoking No more alcohol, street drug abuse Stroke risk factors discussed More recommended per clinical course This medical document was created using an electronic medical record system with [employer] dictation system. Although this document has been carefully reviewed, there may still be some phonetic and typographical errors. These areas are purely typographical due to imperfections of the software programs, and do not reflect any compromise in the patient's medical care. Prognosis guarded Dietary Evaluation Review Comments: 1. Continue TPN to meet at least 75% estimated needs 2. Continue current POC Expected Outcomes/Goals: FU 2-3 days to meet adequate energy & protein within 7 days of NPO Protein Calorie Malnutrition: Severe (rn) Plan discussed with: Other CC Plasma Assessment Blood Product Administration S: [id number] LEANDRO BLACK MD Oct 28, 2024 08:22
[2024-10-28] MEDS ORDERED: TPN PER PHARMACY 0 ML IV SCH (09:15)
[2024-10-28] MEDS ORDERED: ACETAMINOPHEN 650 MG RECT SUPP PR PRN (09:15)
--- NOTE | 2024-10-28 09:21 | DVHPN2 ---
Subjective Patient intubated and encephalopathic Reviewed: Care Plan, H&P, Labs, Medications, Previous Orders, Radiology, Other (Consultants) Changes from previous H/P or p: No Changes General: Per HPI Objective Vitals Vital Signs Date Time Temp Pulse Resp B/P (MAP) Pulse Ox O2 Delivery O2 Flow Rate FiO2 10/28/24 08:47 149/68 10/28/24 08:00 116 25 100 30 10/28/24 07:54 Mechanical Ventilator+ 10/28/24 04:00 99.5 99.5 Intake/Output Intake and Output 10/28/24 07:00 Intake Total 815.621 ml Output Total 1880 ml Balance -1064.379 ml Intake Oral 0 ml IV Total 770.621 ml Tube Feeding 45 ml Output Urine Total 725 ml Gastric Drainage Total 900 ml Drainage Total 255 ml # Bowel Movements 2 General Appearance: Alert, mild distress, Other (Intubated and sedated) HEENT: Atraumatic, PERRLA Lungs: Other (Mechanical ventilation. Decreased breath sounds at bases) Cardiovascular: Regular rate, Normal S1, Normal S2, Other (Sinus rhythm) Abdomen: Other (Increased to gastric secretions from NG tube. Questionable GI bleed) Neuro: Other (Unable to assess) Skin: Dry, Intact, Wounds, Other Psych/Mental Status: Other Medications Current Medications Medications Dose Ordered Sig/Wally Route Start Time Stop Time Status Last Admin Dose Admin Fentanyl Citrate 250 ml @ 2.5 mls/hr Q24H IV 10/04/24 09:45 10/22/24 00:32 22.5 MLS/HR Ondansetron HCl 4 mg Q4HP PRN IV 10/04/24 11:45 Morphine Sulfate 2 mg Q4HPRN PRN IV 10/04/24 11:45 Cancel Nitroglycerin 0.4 mg Q5MINP PRN SL 10/04/24 11:45 Morphine Sulfate 2 mg Q30M PRN IV 10/04/24 11:45 Cancel Lorazepam 50 mg/ Sodium Chloride 50 ml @ 1 mls/hr Q24H IV 10/04/24 18:15 Cancel Midazolam HCl 50 ml @ 1 mls/hr Q24H IV 10/04/24 18:30 10/22/24 00:31 6 MLS/HR Amino Acids 0 ml @ 0 mls/hr PER PHARMACY IV 10/05/24 14:30 UNV Diagnostic Test (Pha) 1 strip Q6HR 10/05/24 18:00 10/28/24 06:00 1 STRIP Insulin Human Regular FOLLOW SLIDING SCALE Q6HR SC 10/05/24 18:00 10/25/24 11:04 2 UNITS Dextrose 50 ml UD IV 10/05/24 14:45 Meropenem 50 ml @ 17 mls/hr Q12HR IV 10/07/24 10:00 UNV Labetalol HCl 10 mg Q2HPRN PRN IV 10/08/24 09:30 Pantoprazole Sodium 40 mg DAILY IV 10/12/24 10:00 10/28/24 08:47 40 MG Levalbuterol HCl 0.625 mg Q6HR NEB 10/13/24 12:00 10/28/24 06:38 0.625 MG Ipratropium [place] 0.5 mg Q6HR NEB 10/13/24 12:00 10/28/24 06:38 0.5 MG Norepinephrine Bitartrate 32 mg/ Sodium Chloride 250 ml @ 0.938 mls/ hr Q24H IV 10/14/24 10:15 10/25/24 19:15 0.938 MLS/HR Epoetin Roger-epbx 10,000 unit MWF SC 10/19/24 17:00 10/27/24 09:46 10,000 UNIT Bumetanide 1 mg DAILY IV 10/22/24 10:00 10/28/24 08:47 1 MG Morphine Sulfate 2 mg Q4HPRN PRN IV 10/21/24 11:30 10/27/24 08:57 2 MG Morphine Sulfate 2 mg Q30M PRN IV 10/21/24 11:30 Nicardipine/ Sodium Chloride 200 ml @ 50 mls/hr Q4H IV 10/22/24 08:45 10/22/24 08:47 50 MLS/HR Metoprolol Tartrate 25 mg BID PO 10/22/24 10:00 10/27/24 22:27 25 MG Acetaminophen 650 mg Q6HP PRN GT 10/22/24 09:00 10/24/24 01:45 650 MG Linezolid 300 ml @ 150 mls/hr Q12HR IV 10/24/24 10:00 10/28/24 08:47 150 MLS/HR Piperacillin Sod/ Tazobactam Sod 50 ml @ 12.5 mls/hr Q8H IV 10/24/24 16:00 10/28/24 07:12 12.5 MLS/HR Enteral Nutritional Formula 1,000 ml 30ML/HR GT 10/24/24 09:15 10/24/24 09:46 1,000 ML Metoclopramide HCl 5 mg Q6HR IV 10/26/24 12:00 10/27/24 06:18 5 MG Metoprolol Tartrate 1.25 mg Q6HPRN PRN IV 10/27/24 09:45 10/27/24 18:11 1.25 MG Laboratory Results Laboratory Tests 10/28/24 03:12 Chemistry Test 10/27/24 16:30 10/28/24 03:12 Calcium Level 10.1 mg/dL (8.7-10.4) 9.0 mg/dL (8.7-10.4) Urinalysis Test 10/05/24 15:05 10/11/24 18:00 10/26/24 20:33 Urine Mucus Few (None Seen) Urine Total Protein 85.0 mg/dL (1-14) H Urine Creatinine 48.05 mg/dL (30.0-125.0) Urine Sodium 76 mmol/L (40-220) Urine Color Light-yellow (Yellow) Urine Clarity Clear (Clear) Urine pH 7.0 (5.0-9.0) Urine Specific [place] 1.014 (1.001-1.035) Urine Protein 1+ (Negative) H Urine Ketones Negative (Negative) Urine Blood 1+ /uL (Negative) H Urine Nitrite Negative (Negative) Urine Bilirubin Negative (Negative) Urine Urobilinogen Normal mg/dL (Negative) Urine Leukocyte Esterase Negative /uL (Negative) Urine RBC 1 /hpf (0 - 3) Urine Microscopic WBC 3 /HPF (0-3) Urine Squamous Epithelial Cells None seen /hpf (<5) Urine Bacteria Few /hpf (None Seen) H Urine Glucose Normal mg/dL (Normal) Microbiology Microbiology Date/Time Source Procedure Growth Status 10/23/24 09:50 Voided Urine Urine Culture - Final Complete 10/23/24 09:50 Blood Blood Culture - Preliminary NO GROWTH AFTER 72 HOURS OF INCUBATION. Resulted 10/18/24 09:21 Pleural Fluid Gram Stain - Final Complete 10/18/24 09:21 Pleural Fluid Body Fluid Culture - Final Complete 10/16/24 12:05 Bronchial Washings Gram Stain - Final Complete 10/16/24 12:05 Bronchial Washings Respiratory Culture - Final Complete 10/04/24 17:10 Nose MRSA Screen - Final Complete Labs and/or images reviewed: Labs reviewed by me, Image(s) reviewed by me Assessment/Plan Assessment/Plan Impression: -severe septic shock -pneumoperitoneum secondary to perforated gastric ulcer -acute kidney injury, hemodynamically mediated, probable VMN -acute hypoxic respiratory failure -shock liver -nicotine dependence -history of CVA -right upper extremity DVT -multifocal pneumonia, probable Gram-positive/Gram-negative etiology -anemia secondary to nutrition, renal failure -bilateral pleural effusions -small left pneumothorax -Failure of ventilator weaning, status post tracheostomy Plan: Events: Patient status post tracheostomy. Continues to have increased NG tube output. Reconsult GI. Increase Protonix to 40 mg IV twice a day. Add Carafate 1 g b.i.d.. -start TPN -further recommendations per surgical consultation -antibiotic therapy: Zosyn, Zyvox -continue Bumex drip. Nephrology recommendations appreciated -Continue to hold anticoagulation -repeat labs, chest x-ray, ABG in a.m. -Discussed plan of care with . All questions answered. Critical care time spent with patient discussing and formulating plan of care: 90 minutes. This does not include time spent performing procedures. This medical document was created using an electronic medical record system with [email or web address] dictation system. Although this document has been carefully reviewed, there may still be some phonetic and typographical errors. These areas are purely typographical due to imperfections of the software programs, and do not reflect any compromise in the patient's medical care. Plan discussed with: Patient, Other (RN) My Orders Orders - CHEYENNE PIKE NP Procedure Category Date Status Time Metoprolol Inj PHA 10/27/24 In Process (Lopressor) 09:45 Pantoprazole PHA 10/28/24 Transmitted (Protonix) 10:00 Tpn Per Pharmacy PHA 10/28/24 Transmitted 09:15 * [facility] Clinical Account Liaison CONS 10/28/24 Transmitted 09:08 Acetaminophen PHA 10/28/24 Transmitted Suppository (Tylenol 09:15 Sucralfate Susp PHA 10/28/24 Transmitted (Carafate Susp) 22:00 Date of Service: Oct 28, 2024 Billing Provider: CHEYENNE PIKE NP Common Visit Codes: [id number] CARE 30-74 MIN CHEYENNE PIKE NP Oct 28, 2024 09:21
[2024-10-28] MEDS: PANTOPRAZOLE 40 MG/10 ML VIAL INJ IV SCH (10:08)
--- NOTE | 2024-10-28 10:57 | DVHPN2 ---
Progress Note Date Seen: Oct 28, 2024 Has the PT tested + for MRSA If YES, has PT been informed?: No Medical Necessity Reason Pt with a Central, PICC or Fol: Yes The following are medically ne: Central Line, Gómez Catheter Reason for gómez catheter: Strict I&O Subjective Review of Systems: Deferred Objective vital signs Vital Sign Date Time Temp Pulse Resp B/P (MAP) Pulse Ox O2 Delivery O2 Flow Rate FiO2 10/28/24 10:34 125 21 116/35 (62) 98 30 10/28/24 10:00 Mechanical Ventilator+ 10/28/24 04:00 99.5 99.5 Total Intake and Output 10/27/24 10/27/24 10/28/24 15:00 23:00 07:00 Intake Total 307.50 ml 408.438 ml 99.683 ml Output Total 1150 ml 730 ml Balance 307.50 ml -741.562 ml -630.317 ml medications Current Medications Medications Dose Ordered Sig/Wally Route Start Time Stop Time Status Last Admin Dose Admin Fentanyl Citrate 250 ml @ 2.5 mls/hr Q24H IV 10/04/24 09:45 10/22/24 00:32 22.5 MLS/HR Ondansetron HCl 4 mg Q4HP PRN IV 10/04/24 11:45 Morphine Sulfate 2 mg Q4HPRN PRN IV 10/04/24 11:45 Cancel Nitroglycerin 0.4 mg Q5MINP PRN SL 10/04/24 11:45 Morphine Sulfate 2 mg Q30M PRN IV 10/04/24 11:45 Cancel Lorazepam 50 mg/ Sodium Chloride 50 ml @ 1 mls/hr Q24H IV 10/04/24 18:15 Cancel Midazolam HCl 50 ml @ 1 mls/hr Q24H IV 10/04/24 18:30 10/22/24 00:31 6 MLS/HR Amino Acids 0 ml @ 0 mls/hr PER PHARMACY IV 10/05/24 14:30 UNV Diagnostic Test (Pha) 1 strip Q6HR 10/05/24 18:00 10/28/24 06:00 1 STRIP Insulin Human Regular FOLLOW SLIDING SCALE Q6HR SC 10/05/24 18:00 10/25/24 11:04 2 UNITS Dextrose 50 ml UD IV 10/05/24 14:45 Meropenem 50 ml @ 17 mls/hr Q12HR IV 10/07/24 10:00 UNV Labetalol HCl 10 mg Q2HPRN PRN IV 10/08/24 09:30 Levalbuterol HCl 0.625 mg Q6HR NEB 10/13/24 12:00 10/28/24 06:38 0.625 MG Ipratropium [place] 0.5 mg Q6HR NEB 10/13/24 12:00 10/28/24 06:38 0.5 MG Norepinephrine Bitartrate 32 mg/ Sodium Chloride 250 ml @ 0.938 mls/ hr Q24H IV 10/14/24 10:15 10/25/24 19:15 0.938 MLS/HR Epoetin Roger-epbx 10,000 unit MWF SC 10/19/24 17:00 10/27/24 09:46 10,000 UNIT Bumetanide 1 mg DAILY IV 10/22/24 10:00 10/28/24 08:47 1 MG Morphine Sulfate 2 mg Q4HPRN PRN IV 10/21/24 11:30 10/27/24 08:57 2 MG Morphine Sulfate 2 mg Q30M PRN IV 10/21/24 11:30 Nicardipine/ Sodium Chloride 200 ml @ 50 mls/hr Q4H IV 10/22/24 08:45 10/22/24 08:47 50 MLS/HR Metoprolol Tartrate 25 mg BID PO 10/22/24 10:00 10/27/24 22:27 25 MG Acetaminophen 650 mg Q6HP PRN GT 10/22/24 09:00 10/24/24 01:45 650 MG Linezolid 300 ml @ 150 mls/hr Q12HR IV 10/24/24 10:00 10/28/24 08:47 150 MLS/HR Piperacillin Sod/ Tazobactam Sod 50 ml @ 12.5 mls/hr Q8H IV 10/24/24 16:00 10/28/24 07:12 12.5 MLS/HR Metoclopramide HCl 5 mg Q6HR IV 10/26/24 12:00 10/27/24 06:18 5 MG Metoprolol Tartrate 1.25 mg Q6HPRN PRN IV 10/27/24 09:45 10/27/24 18:11 1.25 MG Pantoprazole Sodium 40 mg BID IV 10/28/24 10:00 10/28/24 10:08 40 MG Amino Acids 0 ml @ 0 mls/hr PER PHARMACY IV 10/28/24 09:15 Acetaminophen 650 mg Q6HP PRN AR 10/28/24 09:15 Sucralfate 1 gm BID@0600,2200 GT 10/28/24 22:00 Examination: GENERAL:Abnormal, LUNGS:Abnormal, ABDOMEN:Abnormal, SKIN:Abnormal laboratory and microbiology Laboratory Tests 10/28/24 03:12 Test 10/28/24 03:12 Range/Units Serum Glucose 99 74-106 mg/dL Microbiology Date/Time Source Procedure Growth Status 10/23/24 09:50 Voided Urine Urine Culture - Final Complete 10/23/24 09:50 Blood Blood Culture - Final NO GROWTH AFTER 5 DAYS OF INCUBATION. Complete 10/18/24 09:21 Pleural Fluid Gram Stain - Final Complete 10/18/24 09:21 Pleural Fluid Body Fluid Culture - Final Complete 10/16/24 12:05 Bronchial Washings Gram Stain - Final Complete 10/16/24 12:05 Bronchial Washings Respiratory Culture - Final Complete 10/04/24 17:10 Nose MRSA Screen - Final Complete Problem List/Assessment/Plan Problem List/Assessment/Plan 48-year-old male presents to the hospital abdominal pain patient was diagnosed with acute gastric perforation status post surgery . Acute kidney injury hemodynamically mediated requiring acute inpatient hemodialysis Acute respiratory failure -> now trach to vent Perforated gastric ulcer status post exploratory laparoscopic surgery Hypokalemia Anemia due to chronic disease/inflammation HD today, no UF due to hypotension and tachycardia Epogen, PRBC if hb under 8.0 or acute bleeding noted GI consult keep MAP > 65 Albumin for support Avoid hypotension Strict Is&Os Plan discussed with: Other My Orders My Orders Orders - ISABELLE CASTELLANO MD Procedure Category Date Status Time Hemodialysis Orders ORDERS 10/27/24 Transmitted 12:03 Dialysis Nursing CINTHIA 10/27/24 In Process Message 12:03 Document Fluid Input CINTHIA 10/27/24 In Process And Outpu 12:03 Hemodialysis Orders ORDERS 10/28/24 Transmitted 07:33 Dialysis Nursing CINTHIA 10/28/24 In Process Message 07:33 Document Fluid Input CINTHIA 10/28/24 In Process And Outpu 07:33 Dietary Evaluation Review Comments: 1. Continue TPN to meet at least 75% estimated needs 2. Continue current POC Expected Outcomes/Goals: FU 2-3 days to meet adequate energy & protein within 7 days of NPO Protein Calorie Malnutrition: Severe (rn) CC Plasma Assessment Blood Product Administration S: [id number] ISABELLE CASTELLANO MD Oct 28, 2024 10:57
--- NOTE | 2024-10-28 11:43 | DVHPN2 ---
Progress Note Date Seen: Oct 28, 2024 Has the PT tested + for MRSA If YES, has PT been informed?: No Medical Necessity Reason Pt with a Central, PICC or Fol: Yes The following are medically ne: Central Line, Gómez Catheter Reason for gómez catheter: Strict I&O Objective vital signs Vital Sign Date Time Temp Pulse Resp B/P (MAP) Pulse Ox O2 Delivery O2 Flow Rate FiO2 10/28/24 10:34 125 21 116/35 (62) 98 30 10/28/24 10:00 Mechanical Ventilator+ 10/28/24 04:00 99.5 99.5 Total Intake and Output 10/27/24 10/27/24 10/28/24 15:00 23:00 07:00 Intake Total 307.50 ml 408.438 ml 99.683 ml Output Total 1150 ml 730 ml Balance 307.50 ml -741.562 ml -630.317 ml medications Current Medications Medications Dose Ordered Sig/Wally Route Start Time Stop Time Status Last Admin Dose Admin Fentanyl Citrate 250 ml @ 2.5 mls/hr Q24H IV 10/04/24 09:45 10/22/24 00:32 22.5 MLS/HR Ondansetron HCl 4 mg Q4HP PRN IV 10/04/24 11:45 Morphine Sulfate 2 mg Q4HPRN PRN IV 10/04/24 11:45 Cancel Nitroglycerin 0.4 mg Q5MINP PRN SL 10/04/24 11:45 Morphine Sulfate 2 mg Q30M PRN IV 10/04/24 11:45 Cancel Lorazepam 50 mg/ Sodium Chloride 50 ml @ 1 mls/hr Q24H IV 10/04/24 18:15 Cancel Midazolam HCl 50 ml @ 1 mls/hr Q24H IV 10/04/24 18:30 10/22/24 00:31 6 MLS/HR Amino Acids 0 ml @ 0 mls/hr PER PHARMACY IV 10/05/24 14:30 UNV Diagnostic Test (Pha) 1 strip Q6HR 10/05/24 18:00 10/28/24 11:23 1 STRIP Insulin Human Regular FOLLOW SLIDING SCALE Q6HR SC 10/05/24 18:00 10/25/24 11:04 2 UNITS Dextrose 50 ml UD IV 10/05/24 14:45 Meropenem 50 ml @ 17 mls/hr Q12HR IV 10/07/24 10:00 UNV Labetalol HCl 10 mg Q2HPRN PRN IV 10/08/24 09:30 Levalbuterol HCl 0.625 mg Q6HR NEB 10/13/24 12:00 10/28/24 06:38 0.625 MG Ipratropium [place] 0.5 mg Q6HR NEB 10/13/24 12:00 10/28/24 06:38 0.5 MG Norepinephrine Bitartrate 32 mg/ Sodium Chloride 250 ml @ 0.938 mls/ hr Q24H IV 10/14/24 10:15 10/25/24 19:15 0.938 MLS/HR Epoetin Roger-epbx 10,000 unit MWF SC 10/19/24 17:00 10/27/24 09:46 10,000 UNIT Bumetanide 1 mg DAILY IV 10/22/24 10:00 10/28/24 08:47 1 MG Morphine Sulfate 2 mg Q4HPRN PRN IV 10/21/24 11:30 10/27/24 08:57 2 MG Morphine Sulfate 2 mg Q30M PRN IV 10/21/24 11:30 Nicardipine/ Sodium Chloride 200 ml @ 50 mls/hr Q4H IV 10/22/24 08:45 10/22/24 08:47 50 MLS/HR Metoprolol Tartrate 25 mg BID PO 10/22/24 10:00 10/27/24 22:27 25 MG Acetaminophen 650 mg Q6HP PRN GT 10/22/24 09:00 10/24/24 01:45 650 MG Linezolid 300 ml @ 150 mls/hr Q12HR IV 10/24/24 10:00 10/28/24 08:47 150 MLS/HR Piperacillin Sod/ Tazobactam Sod 50 ml @ 12.5 mls/hr Q8H IV 10/24/24 16:00 10/28/24 07:12 12.5 MLS/HR Metoclopramide HCl 5 mg Q6HR IV 10/26/24 12:00 10/27/24 06:18 5 MG Metoprolol Tartrate 1.25 mg Q6HPRN PRN IV 10/27/24 09:45 10/27/24 18:11 1.25 MG Pantoprazole Sodium 40 mg BID IV 10/28/24 10:00 10/28/24 10:08 40 MG Amino Acids 0 ml @ 0 mls/hr PER PHARMACY IV 10/28/24 09:15 Acetaminophen 650 mg Q6HP PRN NE 10/28/24 09:15 Sucralfate 1 gm BID@0600,2200 GT 10/28/24 22:00 Sodium Chloride 20 meq/Potassium Chloride 20 meq/ Multivitamins 10 ml/Chromium/ Copper/Manganese/ Zinc 1 ml/Amino Acids/Dextrose/ Purified Water 926 ml @ 38 mls/hr [id number] IV 10/28/24 22:00 10/29/24 21:59 laboratory and microbiology Laboratory Tests 10/28/24 03:12 Test 10/28/24 03:12 Range/Units Serum Glucose 99 74-106 mg/dL Problem List/Assessment/Plan Problem List/Assessment/Plan 10/10/24 patient had exploratory operation with closure of perforated peptic ulceration about 5 days ago, now concern about possible cholecystitis. GB sludge,GB wall thickened and surounding edema,.LFT's elevated. [patient has history of heavy alcohol use(spouse report). LFTs elevation could be due to liver Ds but cholecystostomy is a reasonable next step, will follow with you 10/14/24 patient appears "surgically stable", will get gastrografin UGI prior to resuming gastric feedings 10/16/24 GASTROGRAFGIN UGI POSSIBLY WITH PERSISTENT LEAK FROM REPAIRED PYLORIC PERFORATION, I HAVE ORDERED A CT SCAN FOR CONFIRMATION 10/24/24 clinically unchanged,being weaned off ventilator, abdomen non distended, tolerating tube feedings, having BM's, KWAN drains with minimal clear drainage, drains removed. 10/26/24 large gastric residual volumes, suspect gastroparesis, vent settings acceptable for tracheostomy, planned for tomorrow 10/27/24 post tracheostomy CXR shows tracheostomy in good locaTION ABOVE THE EVELIA, NO EVIDENCE OF PNEUMOTHORAX OR MEDIASTINAL; WIDENING. i HAVE CALLED PATIENT'S 10/28/24 tracheostomy OK,cxr OK,will sign off, please recall if needed Plan discussed with: Patient Dietary Evaluation Review Comments: 1. Continue TPN to meet at least 75% estimated needs 2. Continue current POC Expected Outcomes/Goals: FU 2-3 days to meet adequate energy & protein within 7 days of NPO Protein Calorie Malnutrition: Severe (rn) LOBO BOSWELL MD Oct 28, 2024 11:43
--- NOTE | 2024-10-28 14:19 | DVHPN2 ---
Progress Note - Dictate Date Seen: Oct 28, 2024 Medical Necessity Reason Pt with a Central, PICC or Fol: No The following are medically ne: Central Line, Gómez Catheter Reason for gómez catheter: Strict I&O vital signs Vital Sign Date Time Temp Pulse Resp B/P (MAP) Pulse Ox O2 Delivery O2 Flow Rate FiO2 10/28/24 14:00 18 100 Mechanical Ventilator+ 30 30 10/28/24 14:00 120 10/28/24 13:50 117/67 (84) 10/28/24 12:00 99.9 99.9 Total Intake and Output 10/27/24 10/27/24 10/28/24 15:00 23:00 07:00 Intake Total 307.50 ml 408.438 ml 99.683 ml Output Total 1150 ml 730 ml Balance 307.50 ml -741.562 ml -630.317 ml medications Current Medications Medications Dose Ordered Sig/Wally Route Start Time Stop Time Status Last Admin Dose Admin Fentanyl Citrate 250 ml @ 2.5 mls/hr Q24H IV 10/04/24 09:45 10/22/24 00:32 22.5 MLS/HR Ondansetron HCl 4 mg Q4HP PRN IV 10/04/24 11:45 Morphine Sulfate 2 mg Q4HPRN PRN IV 10/04/24 11:45 Cancel Nitroglycerin 0.4 mg Q5MINP PRN SL 10/04/24 11:45 Morphine Sulfate 2 mg Q30M PRN IV 10/04/24 11:45 Cancel Lorazepam 50 mg/ Sodium Chloride 50 ml @ 1 mls/hr Q24H IV 10/04/24 18:15 Cancel Midazolam HCl 50 ml @ 1 mls/hr Q24H IV 10/04/24 18:30 10/22/24 00:31 6 MLS/HR Amino Acids 0 ml @ 0 mls/hr PER PHARMACY IV 10/05/24 14:30 UNV Diagnostic Test (Pha) 1 strip Q6HR 10/05/24 18:00 10/28/24 11:23 1 STRIP Insulin Human Regular FOLLOW SLIDING SCALE Q6HR SC 10/05/24 18:00 10/25/24 11:04 2 UNITS Dextrose 50 ml UD IV 10/05/24 14:45 Meropenem 50 ml @ 17 mls/hr Q12HR IV 10/07/24 10:00 UNV Labetalol HCl 10 mg Q2HPRN PRN IV 10/08/24 09:30 Levalbuterol HCl 0.625 mg Q6HR NEB 10/13/24 12:00 10/28/24 12:35 0.625 MG Ipratropium [place] 0.5 mg Q6HR NEB 10/13/24 12:00 10/28/24 12:35 0.5 MG Norepinephrine Bitartrate 32 mg/ Sodium Chloride 250 ml @ 0.938 mls/ hr Q24H IV 10/14/24 10:15 10/25/24 19:15 0.938 MLS/HR Epoetin Roger-epbx 10,000 unit MWF SC 10/19/24 17:00 10/27/24 09:46 10,000 UNIT Bumetanide 1 mg DAILY IV 10/22/24 10:00 10/28/24 08:47 1 MG Morphine Sulfate 2 mg Q4HPRN PRN IV 10/21/24 11:30 10/27/24 08:57 2 MG Morphine Sulfate 2 mg Q30M PRN IV 10/21/24 11:30 Nicardipine/ Sodium Chloride 200 ml @ 50 mls/hr Q4H IV 10/22/24 08:45 10/22/24 08:47 50 MLS/HR Metoprolol Tartrate 25 mg BID PO 10/22/24 10:00 10/27/24 22:27 25 MG Acetaminophen 650 mg Q6HP PRN GT 10/22/24 09:00 10/24/24 01:45 650 MG Linezolid 300 ml @ 150 mls/hr Q12HR IV 10/24/24 10:00 10/28/24 08:47 150 MLS/HR Piperacillin Sod/ Tazobactam Sod 50 ml @ 12.5 mls/hr Q8H IV 10/24/24 16:00 10/28/24 07:12 12.5 MLS/HR Metoclopramide HCl 5 mg Q6HR IV 10/26/24 12:00 10/27/24 06:18 5 MG Metoprolol Tartrate 1.25 mg Q6HPRN PRN IV 10/27/24 09:45 10/27/24 18:11 1.25 MG Pantoprazole Sodium 40 mg BID IV 10/28/24 10:00 10/28/24 10:08 40 MG Amino Acids 0 ml @ 0 mls/hr PER PHARMACY IV 10/28/24 09:15 Acetaminophen 650 mg Q6HP PRN [place] 10/28/24 09:15 Sucralfate 1 gm BID@0600,2200 GT 10/28/24 22:00 Sodium Chloride 20 meq/Potassium Chloride 20 meq/ Multivitamins 10 ml/Chromium/ Copper/Manganese/ Zinc 1 ml/Amino Acids/Dextrose/ Purified Water 926 ml @ 38 mls/hr [id number] IV 10/28/24 22:00 10/29/24 21:59 laboratory and microbiology Laboratory Tests 10/28/24 03:12 Test 10/28/24 03:12 Range/Units Serum Glucose 99 74-106 mg/dL Assessment/Plan Impression Acute hypoxemic respiratory failure S/p tracheostomy Perforated viscus Septic shock Smoker Patient seen and examined in ICU Events On mechanical ventilation S/p tracheostomy AC volume control PEEP 5, FiO2 30% Labs and imaging reviewed ABG reviewed Management Vent support Titrate to maintain sats 90% or above Trach care per RT protocols Continue antibiotics F/u cultures Bronchodilators Monitor renal function Monitor electrolytes Supplement as needed HD per nephrology Nutritional support Tube feedings DVT prophylaxis Critical care time 35 minutes Dietary Evaluation Review Comments: 1. Continue TPN to meet at least 75% estimated needs 2. Continue current POC Expected Outcomes/Goals: FU 2-3 days to meet adequate energy & protein within 7 days of NPO Protein Calorie Malnutrition: Severe (rn) Plan discussed with: Other (Rn) CC Plasma Assessment Blood Product Administration S: [id number] VALENTE DEE MD Oct 28, 2024 14:19
[2024-10-28] MEDS ORDERED: PANTOPRAZOLE 40mg/50ML NS AE 50 ML IV SCH (16:15)
[2024-10-28] MEDS: PANTOPRAZOLE 40mg/50ML NS AE 50 ML IV SCH (17:16)
--- NOTE | 2024-10-28 18:36 | DVHPN2 ---
Progress Note - Dictate Date Seen: Oct 28, 2024 Medical Necessity Reason Pt with a Central, PICC or Fol: No The following are medically ne: Central Line, Gómez Catheter Reason for gómez catheter: Strict I&O Subjective 48-year-old male postop day number 24 S/P laparotomy and repair of perforated pyloric channel ulcer Postop day 1. S/P tracheostomy currently on ventilator S/P cholecystostomy tube GI was asked to re-evaluate patient because of moderate amount of coffee-ground and some red blood via the NG tube He also had one or two episodes of melena reported by the ICU nurse Patient is more awake alert and there is family at the bedside vital signs Vital Sign Date Time Temp Pulse Resp B/P (MAP) Pulse Ox O2 Delivery O2 Flow Rate FiO2 10/28/24 18:00 110 18 146/74 (98) 100 128/67 (87) 10/28/24 18:00 Mechanical Ventilator+ 30 30 10/28/24 16:00 99.5 99.5 Total Intake and Output 10/27/24 10/27/24 10/28/24 15:00 23:00 07:00 Intake Total 307.50 ml 408.438 ml 99.683 ml Output Total 1150 ml 730 ml Balance 307.50 ml -741.562 ml -630.317 ml medications Current Medications Medications Dose Ordered Sig/Wally Route Start Time Stop Time Status Last Admin Dose Admin Fentanyl Citrate 250 ml @ 2.5 mls/hr Q24H IV 10/04/24 09:45 10/22/24 00:32 22.5 MLS/HR Ondansetron HCl 4 mg Q4HP PRN IV 10/04/24 11:45 Morphine Sulfate 2 mg Q4HPRN PRN IV 10/04/24 11:45 Cancel Nitroglycerin 0.4 mg Q5MINP PRN SL 10/04/24 11:45 Morphine Sulfate 2 mg Q30M PRN IV 10/04/24 11:45 Cancel Lorazepam 50 mg/ Sodium Chloride 50 ml @ 1 mls/hr Q24H IV 10/04/24 18:15 Cancel Midazolam HCl 50 ml @ 1 mls/hr Q24H IV 10/04/24 18:30 10/22/24 00:31 6 MLS/HR Amino Acids 0 ml @ 0 mls/hr PER PHARMACY IV 10/05/24 14:30 UNV Diagnostic Test (Pha) 1 strip Q6HR 10/05/24 18:00 10/28/24 17:22 1 STRIP Insulin Human Regular FOLLOW SLIDING SCALE Q6HR SC 10/05/24 18:00 10/25/24 11:04 2 UNITS Dextrose 50 ml UD IV 10/05/24 14:45 Meropenem 50 ml @ 17 mls/hr Q12HR IV 10/07/24 10:00 UNV Labetalol HCl 10 mg Q2HPRN PRN IV 10/08/24 09:30 Levalbuterol HCl 0.625 mg Q6HR NEB 10/13/24 12:00 10/28/24 12:35 0.625 MG Ipratropium [place] 0.5 mg Q6HR NEB 10/13/24 12:00 10/28/24 12:35 0.5 MG Norepinephrine Bitartrate 32 mg/ Sodium Chloride 250 ml @ 0.938 mls/ hr Q24H IV 10/14/24 10:15 10/25/24 19:15 0.938 MLS/HR Epoetin Roger-epbx 10,000 unit MWF SC 10/19/24 17:00 10/27/24 09:46 10,000 UNIT Bumetanide 1 mg DAILY IV 10/22/24 10:00 10/28/24 08:47 1 MG Morphine Sulfate 2 mg Q4HPRN PRN IV 10/21/24 11:30 10/27/24 08:57 2 MG Morphine Sulfate 2 mg Q30M PRN IV 10/21/24 11:30 Nicardipine/ Sodium Chloride 200 ml @ 50 mls/hr Q4H IV 10/22/24 08:45 10/22/24 08:47 50 MLS/HR Metoprolol Tartrate 25 mg BID PO 10/22/24 10:00 10/27/24 22:27 25 MG Acetaminophen 650 mg Q6HP PRN GT 10/22/24 09:00 10/24/24 01:45 650 MG Linezolid 300 ml @ 150 mls/hr Q12HR IV 10/24/24 10:00 10/28/24 08:47 150 MLS/HR Piperacillin Sod/ Tazobactam Sod 50 ml @ 12.5 mls/hr Q8H IV 10/24/24 16:00 10/28/24 15:29 12.5 MLS/HR Metoclopramide HCl 5 mg Q6HR IV 10/26/24 12:00 10/28/24 17:47 5 MG Metoprolol Tartrate 1.25 mg Q6HPRN PRN IV 10/27/24 09:45 10/27/24 18:11 1.25 MG Amino Acids 0 ml @ 0 mls/hr PER PHARMACY IV 10/28/24 09:15 Acetaminophen 650 mg Q6HP PRN [place] 10/28/24 09:15 Sucralfate 1 gm BID@0600,2200 GT 10/28/24 22:00 Sodium Chloride 20 meq/Potassium Chloride 20 meq/ Multivitamins 10 ml/Chromium/ Copper/Manganese/ Zinc 1 ml/Amino Acids/Dextrose/ Purified Water 926 ml @ 38 mls/hr [id number] IV 10/28/24 22:00 10/29/24 21:59 Pantoprazole Sodium 50 ml @ 0 mls/hr Q0M IV 10/28/24 16:15 Cancel Pantoprazole Sodium 50 ml @ 12.5 mls/hr Q4H IV 10/28/24 17:15 10/28/24 17:16 12.5 MLS/HR objective General Appearance: Alert, awake s/p tracheostomy on ventilator HEENT: Atraumatic, PERRLA;Mild pallor, NG tube draining some coffee-ground in moderate quantities Lungs: Decreased breath sounds at bases) Cardiovascular: Regular rate, Normal S1, Normal S2, Abdomen: soft nontender well-healed midline scar without any drainage, hypoactive bowel sounds laboratory and microbiology Laboratory Tests 10/28/24 03:12 Test 10/28/24 03:12 Range/Units Serum Glucose 99 74-106 mg/dL Problems(with codes): (1) Severe anemia (2) Acute kidney injury (3) Perforated viscus (4) Syncope (5) Septic shock (6) Leukocytosis (7) Troponin level elevated Prognosis Plan Keep him NPO for now IV fluid hydration IV TPN Start Protonix drip at 10 milligrams/hour Hold Lovenox and blood thinners Possible re-evaluate with an upper GI series if symptoms persist I will follow up patient with you Dietary Evaluation Review Comments: 1. Continue TPN to meet at least 75% estimated needs 2. Continue current POC Expected Outcomes/Goals: FU 2-3 days to meet adequate energy & protein within 7 days of NPO Protein Calorie Malnutrition: Severe (rn) Plan discussed with: Patient, Other ( family at bedside and [facility] ICU nurse) CC Plasma Assessment Blood Product Administration S: [id number] GURJIT NOBLE MD Oct 28, 2024 18:36
[2024-10-28] MEDS: SUCRALFATE 1 GM/10 ML ORAL SUSP GT SCH (21:48)
[2024-10-28] MEDS: TPN PER PHARMACY IV NR (21:50)
--- NOTE | 2024-10-28 22:30 | DVHEEG2 ---
Neurology EEG Procedural Note Procedural Note EXAM DATE: 10/28/24 REFERRING DOCTOR: TECHNIQUE: Eighteen channels of EEG, 2 channels of EOG, and 1 channel of EKG were recorded using the International 10/20 system. CLINICAL DATA: The patient was referred for an EEG evaluation for the evidence of seizure disorder. MEDICATIONS: See the chart BACKGROUND ACTIVITY: There was significant amount of electrode artifacts in the recording. The EEG appeared to be low-amplitude diffuse rhythmic theta activity over both hemispheres, that was reactive to external stimuli ACTIVATION: Hyperventilation: Not done Photic Stimulation: Not done Sleep: Not seen IMPRESSION: This is a mildly abnormal EEG, this EEG seen in mild cerebral d ysfunction due to metabolic/hypoxic encephalopathy or medication effect, please correlate clinically. The EKG channel showed a regular heart rate of 126 per minute. [place] [address] LEANDRO SOSA MD Oct 28, 2024 22:30
[2024-10-29] VITALS (108 sets, daily range): BP systolic 52–193; BP diastolic 26–123; PULSE 72–122; RESP 15–28; TEMP 98.6–99.9; O2SAT 91–100
[2024-10-29 03:40] LABS: Nucleated Red Blood Cells % 0.0 %
[2024-10-29 03:46] LABS: Hematocrit 21.9 % (41.0-53.0); Hemoglobin 7.4 g/dL (13.5-17.5); Mean Corpuscular Hemoglobin 30.3 pg (28.0-32.0); Mean Corpuscular Volume 89.6 fL (80.0-100.0)
[2024-10-29 04:02] LABS: Alanine Aminotransferase 177 U/L (7-40); Albumin 3.5 g/dL (3.2-4.8); Alkaline Phosphatase 155 U/L (46-116); Anion Gap 15 (5-15); BUN/Creatinine Ratio 13.3 (10.0-20.0); Blood Urea Nitrogen 55 mg/dL (9-23); Calcium 8.6 mg/dL (8.7-10.4); Carbon Dioxide 26 mmol/L (20-31); Chloride 95 mmol/L (98-107); Glucose 134 mg/dL (74-106); Magnesium 2.0 mg/dL (1.6-2.6); Potassium 3.0 mmol/L (3.5-5.1); Sodium 136 mmol/L (136-145); Total Protein 7.0 g/dL (5.7-8.2)
[2024-10-29 04:04] LABS: Bilirubin, Total 3.2 mg/dL (0.2-1.0)
[2024-10-29 04:33] LABS: Triglycerides 114 mg/dL (< 150)
[2024-10-29] MEDS: POTASSIUM CHL 20MEQ/100ML 100 ML IV ONE (05:21)
--- NOTE | 2024-10-29 05:27 | DVH ---
EXAM: XR Chest, 1 View CLINICAL INDICATION: s/p trach, pna TECHNIQUE: Frontal view of the chest. COMPARISON: XY CHEST PORTABLE on DOS: 10/28/24, XY CHEST XRAY 1 VIEW on DOS: 10/27/24, XY CHEST XRAY 1 VIEW on DOS: 10/27/24, XY CHEST XRAY 1 VIEW on DOS: 10/26/24, XY CHEST XRAY 1 VIEW on DOS: 10/25/24 FINDINGS: LUNGS AND PLEURAL SPACES: Bibasilar atelectasis or pneumonia. HEART: Unremarkable. No cardiomegaly. MEDIASTINUM: Unremarkable. Normal mediastinal contour. BONES/JOINTS: Unremarkable. No acute fracture. TUBES, LINES AND DEVICES: Tracheostomy tube in satisfactory position. Stable right-sided pigtail c hest tube. No pneumothorax. Left internal jugular central venous catheter tip in the superior vena c rosaline. Enteric tube tip cannot be seen but is below the diaphragm. OTHER FINDINGS: . . . IMPRESSION: Bibasilar atelectasis or pneumonia.
--- NOTE | 2024-10-29 08:33 | DVHPN2 ---
Subjective Patient intubated and encephalopathic Reviewed: Care Plan, H&P, Labs, Medications, Previous Orders, Radiology, Other (Consultants) Changes from previous H/P or p: No Changes General: Per HPI Objective Vitals Vital Signs Date Time Temp Pulse Resp B/P (MAP) Pulse Ox O2 Delivery O2 Flow Rate FiO2 10/29/24 06:45 110 21 110/71 (84) 100 122/72 (89) 10/29/24 06:25 30 10/29/24 05:52 Mechanical Ventilator+ 10/29/24 04:00 99.0 99.0 Intake/Output Intake and Output 10/29/24 07:00 Intake Total 1255.438 ml Output Total 1160 ml Balance 95.438 ml Intake Oral 0 ml IV Total 1255.438 ml Output Urine Total 500 ml Gastric Drainage Total 500 ml Drainage Total 160 ml # Bowel Movements 4 General Appearance: Alert, mild distress, Other (Intubated and sedated) HEENT: Atraumatic, PERRLA Lungs: Other (Mechanical ventilation. Decreased breath sounds at bases) Cardiovascular: Normal S1, Normal S2, Other (Sinus tachycardia) Abdomen: Other (NG with persistent burgundy secretion) Neuro: Other (Unable to assess) Skin: Dry, Intact, Wounds, Other Psych/Mental Status: Other Medications Current Medications Medications Dose Ordered Sig/Wally Route Start Time Stop Time Status Last Admin Dose Admin Fentanyl Citrate 250 ml @ 2.5 mls/hr Q24H IV 10/04/24 09:45 10/22/24 00:32 22.5 MLS/HR Ondansetron HCl 4 mg Q4HP PRN IV 10/04/24 11:45 Morphine Sulfate 2 mg Q4HPRN PRN IV 10/04/24 11:45 Cancel Nitroglycerin 0.4 mg Q5MINP PRN SL 10/04/24 11:45 Morphine Sulfate 2 mg Q30M PRN IV 10/04/24 11:45 Cancel Lorazepam 50 mg/ Sodium Chloride 50 ml @ 1 mls/hr Q24H IV 10/04/24 18:15 Cancel Midazolam HCl 50 ml @ 1 mls/hr Q24H IV 10/04/24 18:30 10/22/24 00:31 6 MLS/HR Amino Acids 0 ml @ 0 mls/hr PER PHARMACY IV 10/05/24 14:30 UNV Diagnostic Test (Pha) 1 strip Q6HR 10/05/24 18:00 10/29/24 06:00 1 STRIP Insulin Human Regular FOLLOW SLIDING SCALE Q6HR SC 10/05/24 18:00 10/25/24 11:04 2 UNITS Dextrose 50 ml UD IV 10/05/24 14:45 Meropenem 50 ml @ 17 mls/hr Q12HR IV 10/07/24 10:00 UNV Labetalol HCl 10 mg Q2HPRN PRN IV 10/08/24 09:30 Levalbuterol HCl 0.625 mg Q6HR NEB 10/13/24 12:00 10/29/24 06:25 0.625 MG Ipratropium [place] 0.5 mg Q6HR NEB 10/13/24 12:00 10/29/24 06:25 0.5 MG Norepinephrine Bitartrate 32 mg/ Sodium Chloride 250 ml @ 0.938 mls/ hr Q24H IV 10/14/24 10:15 10/25/24 19:15 0.938 MLS/HR Epoetin Roger-epbx 10,000 unit MWF [place] 10/19/24 17:00 10/27/24 09:46 10,000 UNIT Bumetanide 1 mg DAILY IV 10/22/24 10:00 10/28/24 08:47 1 MG Morphine Sulfate 2 mg Q4HPRN PRN IV 10/21/24 11:30 10/27/24 08:57 2 MG Morphine Sulfate 2 mg Q30M PRN IV 10/21/24 11:30 Nicardipine/ Sodium Chloride 200 ml @ 50 mls/hr Q4H IV 10/22/24 08:45 10/22/24 08:47 50 MLS/HR Metoprolol Tartrate 25 mg BID PO 10/22/24 10:00 10/27/24 22:27 25 MG Acetaminophen 650 mg Q6HP PRN GT 10/22/24 09:00 10/24/24 01:45 650 MG Linezolid 300 ml @ 150 mls/hr Q12HR IV 10/24/24 10:00 10/28/24 21:48 150 MLS/HR Piperacillin Sod/ Tazobactam Sod 50 ml @ 12.5 mls/hr Q8H IV 10/24/24 16:00 10/28/24 23:53 12.5 MLS/HR Metoclopramide HCl 5 mg Q6HR IV 10/26/24 12:00 10/28/24 17:47 5 MG Metoprolol Tartrate 1.25 mg Q6HPRN PRN IV 10/27/24 09:45 10/27/24 18:11 1.25 MG Amino Acids 0 ml @ 0 mls/hr PER PHARMACY IV 10/28/24 09:15 Acetaminophen 650 mg Q6HP PRN MD 10/28/24 09:15 Sucralfate 1 gm BID@0600,2200 GT 10/28/24 22:00 10/29/24 06:33 1 GM Sodium Chloride 20 meq/Potassium Chloride 20 meq/ Multivitamins 10 ml/Chromium/ Copper/Manganese/ Zinc 1 ml/Amino Acids/Dextrose/ Purified Water 926 ml @ 38 mls/hr [id number] IV 10/28/24 22:00 10/29/24 21:59 10/28/24 21:50 38 MLS/HR Pantoprazole Sodium 50 ml @ 0 mls/hr Q0M IV 10/28/24 16:15 Cancel Pantoprazole Sodium 50 ml @ 12.5 mls/hr Q4H IV 10/28/24 17:15 10/29/24 04:52 12.5 MLS/HR Laboratory Results Laboratory Tests 10/29/24 03:00 Chemistry Test 10/29/24 03:00 Albumin 3.5 g/dL (3.2-4.8) Calcium Level 8.6 mg/dL (8.7-10.4) L Magnesium Level 2.0 mg/dL (1.6-2.6) Phosphorus Level 6.4 mg/dL (2.4-5.1) H Total Protein 7.0 g/dL (5.7-8.2) Lipid panel Test 10/29/24 03:00 Triglycerides Level 114 mg/dL (< 150) LFT Test 10/29/24 03:00 Alanine Aminotransferase (ALT) 177 U/L (7-40) H Alkaline Phosphatase 155 U/L (46-116) H Aspartate Amino Transferase (AST) 142 U/L (13-40) H Total Bilirubin 3.2 mg/dL (0.2-1.0) H Urinalysis Test 10/05/24 15:05 10/11/24 18:00 10/26/24 20:33 Urine Mucus Few (None Seen) Urine Total Protein 85.0 mg/dL (1-14) H Urine Creatinine 48.05 mg/dL (30.0-125.0) Urine Sodium 76 mmol/L (40-220) Urine Color Light-yellow (Yellow) Urine Clarity Clear (Clear) Urine pH 7.0 (5.0-9.0) Urine Specific [place] 1.014 (1.001-1.035) Urine Protein 1+ (Negative) H Urine Ketones Negative (Negative) Urine Blood 1+ /uL (Negative) H Urine Nitrite Negative (Negative) Urine Bilirubin Negative (Negative) Urine Urobilinogen Normal mg/dL (Negative) Urine Leukocyte Esterase Negative /uL (Negative) Urine RBC 1 /hpf (0 - 3) Urine Microscopic WBC 3 /HPF (0-3) Urine Squamous Epithelial Cells None seen /hpf (<5) Urine Bacteria Few /hpf (None Seen) H Urine Glucose Normal mg/dL (Normal) Microbiology Microbiology Date/Time Source Procedure Growth Status 10/23/24 09:50 Voided Urine Urine Culture - Final Complete 10/23/24 09:50 Blood Blood Culture - Final NO GROWTH AFTER 5 DAYS OF INCUBATION. Complete 10/18/24 09:21 Pleural Fluid Gram Stain - Final Complete 10/18/24 09:21 Pleural Fluid Body Fluid Culture - Final Complete 10/16/24 12:05 Bronchial Washings Gram Stain - Final Complete 10/16/24 12:05 Bronchial Washings Respiratory Culture - Final Complete 10/04/24 17:10 Nose MRSA Screen - Final Complete Labs and/or images reviewed: Labs reviewed by me, Image(s) reviewed by me Assessment/Plan Assessment/Plan Impression: -severe septic shock -pneumoperitoneum secondary to perforated gastric ulcer -acute kidney injury, hemodynamically mediated, probable VMN -acute hypoxic respiratory failure -shock liver -nicotine dependence -history of CVA -right upper extremity DVT -multifocal pneumonia, probable Gram-positive/Gram-negative etiology -anemia secondary to nutrition, renal failure -bilateral pleural effusions -small left pneumothorax -Failure of ventilator weaning, status post tracheostomy Plan: Events: Patient status post tracheostomy. -continue TPN -GI consultation: Recommendations reviewed. Patient placed on Protonix drip -further recommendations per surgical consultation -antibiotic therapy: Zosyn, Zyvox -nephrology consultation: Recommendations reviewed. Patient received HD yesterday -Continue to hold anticoagulation -repeat labs, chest x-ray, ABG in a.m. -Discussed plan of care with . All questions answered. Critical care time spent with patient discussing and formulating plan of care: 90 minutes. This does not include time spent performing procedures. This medical document was created using an electronic medical record system with [employer] dictation system. Although this document has been carefully reviewed, there may still be some phonetic and typographical errors. These areas are purely typographical due to imperfections of the software programs, and do not reflect any compromise in the patient's medical care. Plan discussed with: Patient, Other (RN) My Orders Orders - CHEYENNE PIKE NP Procedure Category Date Status Time Tpn Per Pharmacy PHA 10/28/24 In Process 09:15 * [facility] Supervisor Finishing Room CONS 10/28/24 Transmitted 09:08 Acetaminophen PHA 10/28/24 In Process Suppository (Tylenol 09:15 Sucralfate Susp PHA 10/28/24 In Process (Carafate Susp) 22:00 Amino Acid PHA 10/28/24 In Process Infusion... W/Sodium 22:00 Tpn Per Pharmacy [facility] 10/28/24 In Process 22:00 Date of Service: Oct 29, 2024 Billing Provider: CHEYENNE PIKE NP Common Visit Codes: [id number] CARE 30-74 MIN CHEYENNE PIKE NP Oct 29, 2024 08:33
--- NOTE | 2024-10-29 08:39 | DVHPN2 ---
Subjective Patient continues to be encephalopathic Reviewed: Care Plan, H&P, Labs, Medications, Previous Orders, Radiology, Other (Consultants) Changes from previous H/P or p: No Changes General: Per HPI Objective Vitals Vital Signs Date Time Temp Pulse Resp B/P (MAP) Pulse Ox O2 Delivery O2 Flow Rate FiO2 10/29/24 06:45 110 21 110/71 (84) 100 122/72 (89) 10/29/24 06:25 30 10/29/24 05:52 Mechanical Ventilator+ 10/29/24 04:00 99.0 99.0 Intake/Output Intake and Output 10/29/24 07:00 Intake Total 1255.438 ml Output Total 1160 ml Balance 95.438 ml Intake Oral 0 ml IV Total 1255.438 ml Output Urine Total 500 ml Gastric Drainage Total 500 ml Drainage Total 160 ml # Bowel Movements 4 General Appearance: Alert, mild distress, Other (Intubated and sedated) HEENT: Atraumatic, PERRLA Lungs: Other (Mechanical ventilation. Decreased breath sounds at bases) Cardiovascular: Normal S1, Normal S2, Other (Sinus tachycardia) Abdomen: Other (NG with persistent burgundy secretion) Neuro: Other (Unable to assess) Skin: Dry, Intact, Wounds, Other Psych/Mental Status: Other Medications Current Medications Medications Dose Ordered Sig/Wally Route Start Time Stop Time Status Last Admin Dose Admin Fentanyl Citrate 250 ml @ 2.5 mls/hr Q24H IV 10/04/24 09:45 10/22/24 00:32 22.5 MLS/HR Ondansetron HCl 4 mg Q4HP PRN IV 10/04/24 11:45 Morphine Sulfate 2 mg Q4HPRN PRN IV 10/04/24 11:45 Cancel Nitroglycerin 0.4 mg Q5MINP PRN SL 10/04/24 11:45 Morphine Sulfate 2 mg Q30M PRN IV 10/04/24 11:45 Cancel Lorazepam 50 mg/ Sodium Chloride 50 ml @ 1 mls/hr Q24H IV 10/04/24 18:15 Cancel Midazolam HCl 50 ml @ 1 mls/hr Q24H IV 10/04/24 18:30 10/22/24 00:31 6 MLS/HR Amino Acids 0 ml @ 0 mls/hr PER PHARMACY IV 10/05/24 14:30 UNV Diagnostic Test (Pha) 1 strip Q6HR 10/05/24 18:00 10/29/24 06:00 1 STRIP Insulin Human Regular FOLLOW SLIDING SCALE Q6HR SC 10/05/24 18:00 10/25/24 11:04 2 UNITS Dextrose 50 ml UD IV 10/05/24 14:45 Meropenem 50 ml @ 17 mls/hr Q12HR IV 10/07/24 10:00 UNV Labetalol HCl 10 mg Q2HPRN PRN IV 10/08/24 09:30 Levalbuterol HCl 0.625 mg Q6HR NEB 10/13/24 12:00 10/29/24 06:25 0.625 MG Ipratropium [place] 0.5 mg Q6HR NEB 10/13/24 12:00 10/29/24 06:25 0.5 MG Norepinephrine Bitartrate 32 mg/ Sodium Chloride 250 ml @ 0.938 mls/ hr Q24H IV 10/14/24 10:15 10/25/24 19:15 0.938 MLS/HR Epoetin Roger-epbx 10,000 unit MWF [place] 10/19/24 17:00 10/27/24 09:46 10,000 UNIT Bumetanide 1 mg DAILY IV 10/22/24 10:00 10/28/24 08:47 1 MG Morphine Sulfate 2 mg Q4HPRN PRN IV 10/21/24 11:30 10/27/24 08:57 2 MG Morphine Sulfate 2 mg Q30M PRN IV 10/21/24 11:30 Nicardipine/ Sodium Chloride 200 ml @ 50 mls/hr Q4H IV 10/22/24 08:45 10/22/24 08:47 50 MLS/HR Metoprolol Tartrate 25 mg BID PO 10/22/24 10:00 10/27/24 22:27 25 MG Acetaminophen 650 mg Q6HP PRN GT 10/22/24 09:00 10/24/24 01:45 650 MG Linezolid 300 ml @ 150 mls/hr Q12HR IV 10/24/24 10:00 10/28/24 21:48 150 MLS/HR Piperacillin Sod/ Tazobactam Sod 50 ml @ 12.5 mls/hr Q8H IV 10/24/24 16:00 10/28/24 23:53 12.5 MLS/HR Metoclopramide HCl 5 mg Q6HR IV 10/26/24 12:00 10/28/24 17:47 5 MG Metoprolol Tartrate 1.25 mg Q6HPRN PRN IV 10/27/24 09:45 10/27/24 18:11 1.25 MG Amino Acids 0 ml @ 0 mls/hr PER PHARMACY IV 10/28/24 09:15 Acetaminophen 650 mg Q6HP PRN [place] 10/28/24 09:15 Sucralfate 1 gm BID@0600,2200 GT 10/28/24 22:00 10/29/24 06:33 1 GM Sodium Chloride 20 meq/Potassium Chloride 20 meq/ Multivitamins 10 ml/Chromium/ Copper/Manganese/ Zinc 1 ml/Amino Acids/Dextrose/ Purified Water 926 ml @ 38 mls/hr [id number] IV 10/28/24 22:00 10/29/24 21:59 10/28/24 21:50 38 MLS/HR Pantoprazole Sodium 50 ml @ 0 mls/hr Q0M IV 10/28/24 16:15 Cancel Pantoprazole Sodium 50 ml @ 12.5 mls/hr Q4H IV 10/28/24 17:15 10/29/24 04:52 12.5 MLS/HR Laboratory Results Laboratory Tests 10/29/24 03:00 Chemistry Test 10/29/24 03:00 Albumin 3.5 g/dL (3.2-4.8) Calcium Level 8.6 mg/dL (8.7-10.4) L Magnesium Level 2.0 mg/dL (1.6-2.6) Phosphorus Level 6.4 mg/dL (2.4-5.1) H Total Protein 7.0 g/dL (5.7-8.2) Lipid panel Test 10/29/24 03:00 Triglycerides Level 114 mg/dL (< 150) LFT Test 10/29/24 03:00 Alanine Aminotransferase (ALT) 177 U/L (7-40) H Alkaline Phosphatase 155 U/L (46-116) H Aspartate Amino Transferase (AST) 142 U/L (13-40) H Total Bilirubin 3.2 mg/dL (0.2-1.0) H Urinalysis Test 10/05/24 15:05 10/11/24 18:00 10/26/24 20:33 Urine Mucus Few (None Seen) Urine Total Protein 85.0 mg/dL (1-14) H Urine Creatinine 48.05 mg/dL (30.0-125.0) Urine Sodium 76 mmol/L (40-220) Urine Color Light-yellow (Yellow) Urine Clarity Clear (Clear) Urine pH 7.0 (5.0-9.0) Urine Specific [place] 1.014 (1.001-1.035) Urine Protein 1+ (Negative) H Urine Ketones Negative (Negative) Urine Blood 1+ /uL (Negative) H Urine Nitrite Negative (Negative) Urine Bilirubin Negative (Negative) Urine Urobilinogen Normal mg/dL (Negative) Urine Leukocyte Esterase Negative /uL (Negative) Urine RBC 1 /hpf (0 - 3) Urine Microscopic WBC 3 /HPF (0-3) Urine Squamous Epithelial Cells None seen /hpf (<5) Urine Bacteria Few /hpf (None Seen) H Urine Glucose Normal mg/dL (Normal) Microbiology Microbiology Date/Time Source Procedure Growth Status 10/23/24 09:50 Voided Urine Urine Culture - Final Complete 10/23/24 09:50 Blood Blood Culture - Final NO GROWTH AFTER 5 DAYS OF INCUBATION. Complete 10/18/24 09:21 Pleural Fluid Gram Stain - Final Complete 10/18/24 09:21 Pleural Fluid Body Fluid Culture - Final Complete 10/16/24 12:05 Bronchial Washings Gram Stain - Final Complete 10/16/24 12:05 Bronchial Washings Respiratory Culture - Final Complete 10/04/24 17:10 Nose MRSA Screen - Final Complete Labs and/or images reviewed: Labs reviewed by me, Image(s) reviewed by me Assessment/Plan Assessment/Plan Impression: -severe septic shock -pneumoperitoneum secondary to perforated gastric ulcer -acute kidney injury, hemodynamically mediated, probable VMN -acute hypoxic respiratory failure -shock liver -nicotine dependence -history of CVA -right upper extremity DVT -multifocal pneumonia, probable Gram-positive/Gram-negative etiology -anemia secondary to nutrition, renal failure -bilateral pleural effusions -small left pneumothorax -Failure of ventilator weaning, status post tracheostomy Plan: Events: Patient status post tracheostomy. -continue TPN -GI consultation: Recommendations reviewed. Patient placed on Protonix drip -further recommendations per surgical consultation -antibiotic therapy: Zosyn, Zyvox -nephrology consultation: Recommendations reviewed. Patient received HD yesterday -Continue to hold anticoagulation -repeat labs, chest x-ray, ABG in a.m. -Discussed plan of care with . All questions answered. Critical care time spent with patient discussing and formulating plan of care: 90 minutes. This does not include time spent performing procedures. This medical document was created using an electronic medical record system with [employer] dictation system. Although this document has been carefully reviewed, there may still be some phonetic and typographical errors. These areas are purely typographical due to imperfections of the software programs, and do not reflect any compromise in the patient's medical care. Plan discussed with: Patient, Other (RN) My Orders Orders - CHEYENNE PIKE NP Procedure Category Date Status Time Tpn Per Pharmacy PHA 10/28/24 In Process 09:15 * [facility] [employer] Mechanical Engineer CONS 10/28/24 Transmitted 09:08 Acetaminophen PHA 10/28/24 In Process Suppository (Tylenol 09:15 Sucralfate Susp PHA 10/28/24 In Process (Carafate Susp) 22:00 Amino Acid PHA 10/28/24 In Process Infusion... W/Sodium 22:00 Tpn Per Pharmacy [facility] 10/28/24 In Process 22:00 Date of Service: Oct 29, 2024 Billing Provider: CHEYENNE PIKE NP Common Visit Codes: [id number] CARE 30-74 MIN CHEYENNE PIKE NP Oct 29, 2024 08:39
--- NOTE | 2024-10-29 10:32 | DVHPN2 ---
Progress Note - Dictate Date Seen: Oct 29, 2024 Medical Necessity Reason Pt with a Central, PICC or Fol: No The following are medically ne: Central Line, Gómez Catheter Reason for gómez catheter: Strict I&O Subjective Mr. Perez is a 48 years old right-handed gentleman with a history of hypertension, dyslipidemia, multiple strokes, he was brought to the [facility] on 10/04/2024 with a chief company of recurrent syncope, in the hospital, the patient was found to have perforated viscus, and he went through surgical treatment, he was hospital course has been complicated with sepsis, septic shock, pneumonia, right upper extremity DVT. With appropriate treatment, the patient has improved, but he does not mentally recover as anticipated. I saw him on 08/23/2023 for TIA I have seen and examined the patient, discussed with his nurse. He is better today, he tracks more often, and he follows a little bit, but he does not not vocalize, I do not see extremity movement (RN: Able to move left arm) Urinalysis, 08/22/2023: Unremarkable UDS, 08/22/2023: Negative WBC/Hb/PLT'/MCV, 08/22/2023: 10.8/13.1/184/87.4, 10/28/2024: 15/8/487/89.3 Troponin 1 high-sensitivity, 08/22/2023: 336, 273/300 BUNs/CR, 08/22/2023: 15/1.45 GFR, 08/22/2023: 59 Liver function test, 08/22/2023: Unremarkable TG/CHO L/LDL/HDL, 08/2023: 136/166/111/39 TSH, 08/23/2023: 4.25 DONAL, 08/23/2023: 1. No evidence of intracardiac source of embolus in the study conducted today. 2. Normal valves without significant masses or change vegetations were discernible. 3. No evidence of intra-atrial shunting by bubble study and color Doppler. 4. Mild atherosclerotic plaquing was visualized in the arch of the aorta without evidence of dissection in the visualized part CT head, 10/24/2024: 1. No intracranial hemorrhage or mass effect. 2. [id number] chronic microvascular ischemic changes. 3. Old bilateral basal ganglia lacunar infarcts. 4. Small bilateral mastoid effusions. CT abdomen/pelvis, 10/04/2024: 1. Extensive intra-abdominal free air concerning for perforated viscus. Surgical consultation is recommended. 2. Enteritis is seen in multiple loops of small bowel in the left hemiabdomen. 3. Moderate abdominopelvic ascites. 4. Small right pleural effusion. CTA neck, head, 08/22/2023:1. CTA head demonstrates no evidence of large vessel occlusion, aneurysm, or significant stenosis. 2. CTA neck demonstrates no evidence of carotid or vertebral dissection or significant stenosis. 3. No noncontrast CT head was performed. 4. Additional findings as detailed above MRI head, 08/23/2023: No acute infarct, intracranial hemorrhage, mass effect, or hydrocephalus. Moderate periventricular and deep subcortical white matter T2 hyperintensities which are nonspecific, but most likely related to sequela of chronic microvascular ischemic changes (I have reviewed the MRI films with our in-house radiologist, Dr. Black, the patient has bilateral multiple subacute/chronic infarcts) vital signs Vital Sign Date Time Temp Pulse Resp B/P (MAP) Pulse Ox O2 Delivery O2 Flow Rate FiO2 10/29/24 09:15 112/70 10/29/24 08:32 108 21 100 30 10/29/24 05:52 Mechanical Ventilator+ 10/29/24 04:00 99.0 99.0 Total Intake and Output 10/28/24 10/28/24 10/29/24 15:00 23:00 07:00 Intake Total 350.938 ml 501.0 ml 403.5 ml Output Total 715 ml 445 ml Balance 350.938 ml -214.0 ml -41.5 ml medications Current Medications Medications Dose Ordered Sig/Wally Route Start Time Stop Time Status Last Admin Dose Admin Fentanyl Citrate 250 ml @ 2.5 mls/hr Q24H IV 10/04/24 09:45 10/22/24 00:32 22.5 MLS/HR Ondansetron HCl 4 mg Q4HP PRN IV 10/04/24 11:45 Morphine Sulfate 2 mg Q4HPRN PRN IV 10/04/24 11:45 Cancel Nitroglycerin 0.4 mg Q5MINP PRN SL 10/04/24 11:45 Morphine Sulfate 2 mg Q30M PRN IV 10/04/24 11:45 Cancel Lorazepam 50 mg/ Sodium Chloride 50 ml @ 1 mls/hr Q24H IV 10/04/24 18:15 Cancel Midazolam HCl 50 ml @ 1 mls/hr Q24H IV 10/04/24 18:30 10/22/24 00:31 6 MLS/HR Amino Acids 0 ml @ 0 mls/hr PER PHARMACY IV 10/05/24 14:30 UNV Diagnostic Test (Pha) 1 strip Q6HR 10/05/24 18:00 10/29/24 06:00 1 STRIP Insulin Human Regular FOLLOW SLIDING SCALE Q6HR SC 10/05/24 18:00 10/25/24 11:04 2 UNITS Dextrose 50 ml UD IV 10/05/24 14:45 Meropenem 50 ml @ 17 mls/hr Q12HR IV 10/07/24 10:00 UNV Labetalol HCl 10 mg Q2HPRN PRN IV 10/08/24 09:30 Levalbuterol HCl 0.625 mg Q6HR NEB 10/13/24 12:00 10/29/24 06:25 0.625 MG Ipratropium [place] 0.5 mg Q6HR NEB 10/13/24 12:00 10/29/24 06:25 0.5 MG Norepinephrine Bitartrate 32 mg/ Sodium Chloride 250 ml @ 0.938 mls/ hr Q24H IV 10/14/24 10:15 10/25/24 19:15 0.938 MLS/HR Epoetin Roger-epbx 10,000 unit MWF SC 10/19/24 17:00 10/27/24 09:46 10,000 UNIT Bumetanide 1 mg DAILY IV 10/22/24 10:00 10/29/24 09:15 1 MG Morphine Sulfate 2 mg Q4HPRN PRN IV 10/21/24 11:30 10/27/24 08:57 2 MG Morphine Sulfate 2 mg Q30M PRN IV 10/21/24 11:30 Nicardipine/ Sodium Chloride 200 ml @ 50 mls/hr Q4H IV 10/22/24 08:45 10/22/24 08:47 50 MLS/HR Metoprolol Tartrate 25 mg BID PO 10/22/24 10:00 10/27/24 22:27 25 MG Acetaminophen 650 mg Q6HP PRN GT 10/22/24 09:00 10/24/24 01:45 650 MG Linezolid 300 ml @ 150 mls/hr Q12HR IV 10/24/24 10:00 10/29/24 09:15 150 MLS/HR Piperacillin Sod/ Tazobactam Sod 50 ml @ 12.5 mls/hr Q8H IV 10/24/24 16:00 10/29/24 09:14 12.5 MLS/HR Metoclopramide HCl 5 mg Q6HR IV 10/26/24 12:00 10/28/24 17:47 5 MG Metoprolol Tartrate 1.25 mg Q6HPRN PRN IV 10/27/24 09:45 10/27/24 18:11 1.25 MG Amino Acids 0 ml @ 0 mls/hr PER PHARMACY IV 10/28/24 09:15 Acetaminophen 650 mg Q6HP PRN [place] 10/28/24 09:15 Sucralfate 1 gm BID@0600,2200 GT 10/28/24 22:00 10/29/24 06:33 1 GM Sodium Chloride 20 meq/Potassium Chloride 20 meq/ Multivitamins 10 ml/Chromium/ Copper/Manganese/ Zinc 1 ml/Amino Acids/Dextrose/ Purified Water 926 ml @ 38 mls/hr [id number] IV 10/28/24 22:00 10/29/24 21:59 10/28/24 21:50 38 MLS/HR Pantoprazole Sodium 50 ml @ 0 mls/hr Q0M IV 10/28/24 16:15 Cancel Pantoprazole Sodium 50 ml @ 12.5 mls/hr Q4H IV 10/28/24 17:15 10/29/24 09:14 12.5 MLS/HR objective General: the patient is well developed and nourished. No acute distress. MENTAL STATUS: Subjective SPEECH, LANGUAGE, HIGHER CORTICAL FUNCTION: He does not vocalize. CRANIAL NERVES:Intact visual ansari to confrontation (visual thread). Pupils are equal, round and reactive. EOMs full and conjugate. Mandibular strength intact. Facial muscles symmetrical and strength intact. SENSATION: Sensation to touch and pinprick is unremarkable MOTOR: Normal muscle bulk. No fasciculations. No abnormal movements or posturing. Moves the left-hand slightly REFLEXES: Deep tendon reflexes are increased bilaterally, clonic in the left knee and bilateral ankles. No pathological reflexes. CEREBELLAR/COORDINATION: Deferred GAIT/STATION: deferred laboratory and microbiology Laboratory Tests 10/29/24 03:00 Test 10/29/24 03:00 Range/Units Serum Glucose 134 H 74-106 mg/dL Problem List Altered mental status Metabolic encephalopathy secondary to sepsis, septic shock, pneumonia Hypoxic encephalopathy Viscus perforation status post surgical repair GI bleeding Anemia Respiratory failure S/P tracheostomy Multiple strokes Secondary to history methamphetamine, cocaine, alcohol use History of alcohol abuse History of cocaine, methamphetamine abuse Hyperreflexia secondary to multiple strokes Assessment/Plan Monitoring Supportive treatment ICU care Stabilize vitals Respiratory support Follow-up labs MRI head IV antibiotics Resume Aspirin 81 mg daily later Quit tobacco smoking No more alcohol, street drug abuse Stroke risk factors discussed More recommended per clinical course This medical document was created using an electronic medical record system with [employer] dictation system. Although this document has been carefully reviewed, there may still be some phonetic and typographical errors. These areas are purely typographical due to imperfections of the software programs, and do not reflect any compromise in the patient's medical care. Prognosis Poor Dietary Evaluation Review Comments: 1. Continue TPN to meet at least 75% estimated needs 2. Continue current POC Expected Outcomes/Goals: FU 2-3 days to meet adequate energy & protein within 7 days of NPO Protein Calorie Malnutrition: Severe (rn) Plan discussed with: Other CC Plasma Assessment Blood Product Administration S: [id number] LAENDRO BLACK MD Oct 29, 2024 10:32
--- NOTE | 2024-10-29 15:09 | DVHPN2 ---
Progress Note Date Seen: Oct 29, 2024 Resident Creating Document: KWASI MILLAN Medical Necessity Reason Pt with a Central, PICC or Fol: No The following are medically ne: Central Line, Gómez Catheter Reason for gómez catheter: Strict I&O Subjective Review of Systems Patient is 48 years old male with a past medical history of hypertension, hyperlipidemia, CVA in August 2023 with no deficit, memory loss, left knee surgery. To the ED with a syncope for 1 week. Per , patient has been complaining of some constipation for the past several days. On admission patient was found to be severely hypotensive and hyponatremic and severely anemic as well. He has since received multiple units of PRBC and was intubated. CT of the abdomen and pelvis showed perforated viscus and surgery was consulted. On admission patient had leukocytosis with WBC 16.8, hemoglobin was 4.3, hypokalemia with potassium 3.0, creatinine 4.14, BUN 55, On 10/04/2024 patient had-Expiratory laparotomy with closure of perforated pyloric ulcer with omental patch Patient is also status post cholecystostomy due to cholecystitis Patient status post tracheostomy Patient is seen today for clinical evaluation. Labs and chart reviewed. Recommendation was to put the patient on trach collar. Patient has been follow up by Neurology Objective vital signs Vital Sign Date Time Temp Pulse Resp B/P (MAP) Pulse Ox O2 Delivery O2 Flow Rate FiO2 10/29/24 12:45 99.1 107 23 143/68 (93) 100 99.1 131/70 (90) 10/29/24 11:55 T-piece 8 35 35 Total Intake and Output 10/28/24 10/28/24 10/29/24 15:00 23:00 07:00 Intake Total 350.938 ml 501.0 ml 403.5 ml Output Total 715 ml 445 ml Balance 350.938 ml -214.0 ml -41.5 ml medications Current Medications Medications Dose Ordered Sig/Wally Route Start Time Stop Time Status Last Admin Dose Admin Fentanyl Citrate 250 ml @ 2.5 mls/hr Q24H IV 10/04/24 09:45 10/22/24 00:32 22.5 MLS/HR Ondansetron HCl 4 mg Q4HP PRN IV 10/04/24 11:45 Morphine Sulfate 2 mg Q4HPRN PRN IV 10/04/24 11:45 Cancel Nitroglycerin 0.4 mg Q5MINP PRN SL 10/04/24 11:45 Morphine Sulfate 2 mg Q30M PRN IV 10/04/24 11:45 Cancel Lorazepam 50 mg/ Sodium Chloride 50 ml @ 1 mls/hr Q24H IV 10/04/24 18:15 Cancel Midazolam HCl 50 ml @ 1 mls/hr Q24H IV 10/04/24 18:30 10/22/24 00:31 6 MLS/HR Amino Acids 0 ml @ 0 mls/hr PER PHARMACY IV 10/05/24 14:30 UNV Diagnostic Test (Pha) 1 strip Q6HR 10/05/24 18:00 10/29/24 12:30 1 STRIP Insulin Human Regular FOLLOW SLIDING SCALE Q6HR SC 10/05/24 18:00 10/25/24 11:04 2 UNITS Dextrose 50 ml UD IV 10/05/24 14:45 Meropenem 50 ml @ 17 mls/hr Q12HR IV 10/07/24 10:00 UNV Labetalol HCl 10 mg Q2HPRN PRN IV 10/08/24 09:30 Levalbuterol HCl 0.625 mg Q6HR NEB 10/13/24 12:00 10/29/24 11:08 0.625 MG Ipratropium [place] 0.5 mg Q6HR NEB 10/13/24 12:00 10/29/24 11:08 0.5 MG Norepinephrine Bitartrate 32 mg/ Sodium Chloride 250 ml @ 0.938 mls/ hr Q24H IV 10/14/24 10:15 10/25/24 19:15 0.938 MLS/HR Epoetin Roger-epbx 10,000 unit MWF SC 10/19/24 17:00 10/29/24 11:03 10,000 UNIT Bumetanide 1 mg DAILY IV 10/22/24 10:00 10/29/24 09:15 1 MG Morphine Sulfate 2 mg Q4HPRN PRN IV 10/21/24 11:30 10/27/24 08:57 2 MG Morphine Sulfate 2 mg Q30M PRN IV 10/21/24 11:30 Nicardipine/ Sodium Chloride 200 ml @ 50 mls/hr Q4H IV 10/22/24 08:45 10/22/24 08:47 50 MLS/HR Metoprolol Tartrate 25 mg BID PO 10/22/24 10:00 10/29/24 11:00 25 MG Acetaminophen 650 mg Q6HP PRN GT 10/22/24 09:00 10/24/24 01:45 650 MG Linezolid 300 ml @ 150 mls/hr Q12HR IV 10/24/24 10:00 10/29/24 09:15 150 MLS/HR Piperacillin Sod/ Tazobactam Sod 50 ml @ 12.5 mls/hr Q8H IV 10/24/24 16:00 10/29/24 09:14 12.5 MLS/HR Metoclopramide HCl 5 mg Q6HR IV 10/26/24 12:00 10/28/24 17:47 5 MG Metoprolol Tartrate 1.25 mg Q6HPRN PRN IV 10/27/24 09:45 10/27/24 18:11 1.25 MG Amino Acids 0 ml @ 0 mls/hr PER PHARMACY IV 10/28/24 09:15 Acetaminophen 650 mg Q6HP PRN [place] 10/28/24 09:15 Sucralfate 1 gm BID@0600,2200 GT 10/28/24 22:00 10/29/24 06:33 1 GM Sodium Chloride 20 meq/Potassium Chloride 20 meq/ Multivitamins 10 ml/Chromium/ Copper/Manganese/ Zinc 1 ml/Amino Acids/Dextrose/ Purified Water 926 ml @ 38 mls/hr [id number] IV 10/28/24 22:00 10/29/24 21:59 10/28/24 21:50 38 MLS/HR Pantoprazole Sodium 50 ml @ 0 mls/hr Q0M IV 10/28/24 16:15 Cancel Pantoprazole Sodium 50 ml @ 12.5 mls/hr Q4H IV 10/28/24 17:15 10/29/24 14:01 12.5 MLS/HR Fat Emulsion Intravenous 50 ml/ Sodium Chloride 30 meq/Potassium Chloride 30 meq/ Calcium Gluconate 2.3 meq/Magnesium Sulfate 6 meq/ Multivitamins 10 ml/Amino Acids/ Dextrose 1,038.9462 ml @ 43 mls/hr [id number] IV 10/29/24 22:00 10/30/24 21:59 laboratory and microbiology Laboratory Tests 10/29/24 03:00 Test 10/29/24 03:00 Range/Units Serum Glucose 134 H 74-106 mg/dL Microbiology Date/Time Source Procedure Growth Status 10/23/24 09:50 Voided Urine Urine Culture - Final Complete 10/23/24 09:50 Blood Blood Culture - Final NO GROWTH AFTER 5 DAYS OF INCUBATION. Complete 10/18/24 09:21 Pleural Fluid Gram Stain - Final Complete 10/18/24 09:21 Pleural Fluid Body Fluid Culture - Final Complete 10/16/24 12:05 Bronchial Washings Gram Stain - Final Complete 10/16/24 12:05 Bronchial Washings Respiratory Culture - Final Complete 10/04/24 17:10 Nose MRSA Screen - Final Complete Problem List/Assessment/Plan Problem List/Assessment/Plan Assessment/Plan Impression Acute hypoxemic respiratory failure S/p tracheostomy Perforated viscus Septic shock Smoker Patient seen and examined in ICU Events Patient was seen by Gastroenterology yesterday, patient is being followed by Neurology On mechanical ventilation S/p tracheostomy Recommended for trach collar AC volume control PEEP 5, FiO2 30% Labs and imaging reviewed ABG reviewed Management Vent support Titrate to maintain sats 90% or above Trach care per RT protocols Recommended for trach collar Continue antibiotics F/u cultures Bronchodilators Monitor renal function Monitor electrolytes Supplement as needed HD per nephrology Nutritional support Tube feedings DVT prophylaxis Critical care time 35 minutes Goals of care, Code status ; discussed with >15 minutes PUD prophylaxis: DVT prophylaxis: Plan discussed with Dr. Sloan , nursing staff, Total time spent on patient evaluation, chart review, assessment and plan, discussion discussion >35 minutes Plan discussed with: Other (RN) Dietary Evaluation Review Comments: 1. Continue TPN to meet at least 75% estimated needs 2. Continue current POC Expected Outcomes/Goals: FU 2-3 days to meet adequate energy & protein within 7 days of NPO Protein Calorie Malnutrition: Severe (rn) CC Plasma Assessment Blood Product Administration S: [id number] Date of Service: Oct 29, 2024 Billing Provider: VALENTE DEE MD Common Visit Codes: NOT BILLABLE KWASI MILLAN RESIDENT Oct 29, 2024 15:09 VALENTE DEE MD Nov 01, 2024 12:54
--- NOTE | 2024-10-29 16:59 | DVHPN2 ---
Progress Note - Dictate Date Seen: Oct 29, 2024 Medical Necessity Reason Pt with a Central, PICC or Fol: No The following are medically ne: Central Line, Gómez Catheter Reason for gómez catheter: Strict I&O Subjective 48-year-old male postop day number 25 S/P laparotomy and repair of perforated pyloric channel ulcer Postop day 2. S/P tracheostomy currently on ventilator S/P cholecystostomy tube; liver enzymes persistently elevated NG tube output is decreasing, only 100 mL per the shift Patient had two melanotic stools today Hemoglobin is dropped down to 7.4. vital signs Vital Sign Date Time Temp Pulse Resp B/P (MAP) Pulse Ox O2 Delivery O2 Flow Rate FiO2 10/29/24 12:45 99.1 107 23 143/68 (93) 100 99.1 131/70 (90) 10/29/24 11:55 T-piece 8 35 35 Total Intake and Output 10/28/24 10/28/24 10/29/24 14:59 22:59 06:59 Intake Total 351.875 ml 451.438 ml 454.0 ml Output Total 715 ml 445 ml Balance 351.875 ml -263.562 ml 9.0 ml medications Current Medications Medications Dose Ordered Sig/Wally Route Start Time Stop Time Status Last Admin Dose Admin Fentanyl Citrate 250 ml @ 2.5 mls/hr Q24H IV 10/04/24 09:45 10/22/24 00:32 22.5 MLS/HR Ondansetron HCl 4 mg Q4HP PRN IV 10/04/24 11:45 Morphine Sulfate 2 mg Q4HPRN PRN IV 10/04/24 11:45 Cancel Nitroglycerin 0.4 mg Q5MINP PRN SL 10/04/24 11:45 Morphine Sulfate 2 mg Q30M PRN IV 10/04/24 11:45 Cancel Lorazepam 50 mg/ Sodium Chloride 50 ml @ 1 mls/hr Q24H IV 10/04/24 18:15 Cancel Midazolam HCl 50 ml @ 1 mls/hr Q24H IV 10/04/24 18:30 10/22/24 00:31 6 MLS/HR Amino Acids 0 ml @ 0 mls/hr PER PHARMACY IV 10/05/24 14:30 UNV Diagnostic Test (Pha) 1 strip Q6HR 10/05/24 18:00 10/29/24 12:30 1 STRIP Insulin Human Regular FOLLOW SLIDING SCALE Q6HR SC 10/05/24 18:00 10/25/24 11:04 2 UNITS Dextrose 50 ml UD IV 10/05/24 14:45 Meropenem 50 ml @ 17 mls/hr Q12HR IV 10/07/24 10:00 UNV Labetalol HCl 10 mg Q2HPRN PRN IV 10/08/24 09:30 Levalbuterol HCl 0.625 mg Q6HR NEB 10/13/24 12:00 10/29/24 11:08 0.625 MG Ipratropium [place] 0.5 mg Q6HR NEB 10/13/24 12:00 10/29/24 11:08 0.5 MG Norepinephrine Bitartrate 32 mg/ Sodium Chloride 250 ml @ 0.938 mls/ hr Q24H IV 10/14/24 10:15 10/25/24 19:15 0.938 MLS/HR Epoetin Roger-epbx 10,000 unit MWF SC 10/19/24 17:00 10/29/24 11:03 10,000 UNIT Bumetanide 1 mg DAILY IV 10/22/24 10:00 10/29/24 09:15 1 MG Morphine Sulfate 2 mg Q4HPRN PRN IV 10/21/24 11:30 10/27/24 08:57 2 MG Morphine Sulfate 2 mg Q30M PRN IV 10/21/24 11:30 Nicardipine/ Sodium Chloride 200 ml @ 50 mls/hr Q4H IV 10/22/24 08:45 10/22/24 08:47 50 MLS/HR Metoprolol Tartrate 25 mg BID PO 10/22/24 10:00 10/29/24 11:00 25 MG Acetaminophen 650 mg Q6HP PRN GT 10/22/24 09:00 10/24/24 01:45 650 MG Linezolid 300 ml @ 150 mls/hr Q12HR IV 10/24/24 10:00 10/29/24 09:15 150 MLS/HR Piperacillin Sod/ Tazobactam Sod 50 ml @ 12.5 mls/hr Q8H IV 10/24/24 16:00 10/29/24 09:14 12.5 MLS/HR Metoclopramide HCl 5 mg Q6HR IV 10/26/24 12:00 10/28/24 17:47 5 MG Metoprolol Tartrate 1.25 mg Q6HPRN PRN IV 10/27/24 09:45 10/27/24 18:11 1.25 MG Amino Acids 0 ml @ 0 mls/hr PER PHARMACY IV 10/28/24 09:15 Acetaminophen 650 mg Q6HP PRN [place] 10/28/24 09:15 Sucralfate 1 gm BID@0600,2200 GT 10/28/24 22:00 10/29/24 06:33 1 GM Sodium Chloride 20 meq/Potassium Chloride 20 meq/ Multivitamins 10 ml/Chromium/ Copper/Manganese/ Zinc 1 ml/Amino Acids/Dextrose/ Purified Water 926 ml @ 38 mls/hr [id number] IV 10/28/24 22:00 10/29/24 21:59 10/28/24 21:50 38 MLS/HR Pantoprazole Sodium 50 ml @ 0 mls/hr Q0M IV 10/28/24 16:15 Cancel Pantoprazole Sodium 50 ml @ 12.5 mls/hr Q4H IV 10/28/24 17:15 10/29/24 14:01 12.5 MLS/HR Fat Emulsion Intravenous 50 ml/ Sodium Chloride 30 meq/Potassium Chloride 30 meq/ Calcium Gluconate 2.3 meq/Magnesium Sulfate 6 meq/ Multivitamins 10 ml/Amino Acids/ Dextrose 1,038.9462 ml @ 43 mls/hr [id number] IV 10/29/24 22:00 10/30/24 21:59 objective General Appearance: Alert, awake s/p tracheostomy on ventilator HEENT: Atraumatic, PERRLA;Mild pallor, NG tube draining some coffee-ground in moderate quantities Lungs: Decreased breath sounds at bases) Cardiovascular: Regular rate, Normal S1, Normal S2, Abdomen: soft nontender well-healed midline scar without any drainage, hypoactive bowel sounds laboratory and microbiology Laboratory Tests 10/29/24 03:00 Test 10/29/24 03:00 Range/Units Serum Glucose 134 H 74-106 mg/dL Problems(with codes): (1) Cholecystitis (2) Troponin level elevated (3) Shock (4) Altered mental status (5) Severe anemia (6) Acute kidney injury (7) Perforated viscus (8) Syncope (9) Hyponatremia (10) NSTEMI (non-ST elevated myocardial infarction) (11) GI bleed (12) Septic shock (13) Leukocytosis (14) TIA (transient ischemic attack) Prognosis Plan Continue IV Protonix drip at 10 milligrams/hour Transfuse 2 units PRBC Continue to monitor labs Continue TPN Repeat abdominal x-ray today Possible repeat ultrasound of the gallbladder and liver tomorrow Hold Reglan for now as the patient is having bowel movements and melena DC aspirin NSAIDs blood thinners Lovenox Dietary Evaluation Review Comments: 1. Continue TPN to meet at least 75% estimated needs 2. Continue current POC Expected Outcomes/Goals: FU 2-3 days to meet adequate energy & protein within 7 days of NPO Protein Calorie Malnutrition: Severe (rn) Plan discussed with: Other (ICU Nurse) CC Plasma Assessment Blood Product Administration S: [id number] GURJIT NOBLE MD Oct 29, 2024 16:59
[2024-10-29 17:05] LABS: Hemoglobin 8.0 g/dL (13.5-17.5)
[2024-10-29 17:06] LABS: Hematocrit 23.6 % (41.0-53.0)
--- NOTE | 2024-10-29 17:29 | DVHPN2 ---
Progress Note Date Seen: Oct 29, 2024 Medical Necessity Reason Pt with a Central, PICC or Fol: No The following are medically ne: Central Line, Gómez Catheter Reason for gómez catheter: Strict I&O Subjective Review of Systems: Deferred Objective vital signs Vital Sign Date Time Temp Pulse Resp B/P (MAP) Pulse Ox O2 Delivery O2 Flow Rate FiO2 10/29/24 12:45 99.1 107 23 143/68 (93) 100 99.1 131/70 (90) 10/29/24 11:55 T-piece 8 35 35 Total Intake and Output 10/28/24 10/28/24 10/29/24 15:00 23:00 07:00 Intake Total 350.938 ml 501.0 ml 403.5 ml Output Total 715 ml 445 ml Balance 350.938 ml -214.0 ml -41.5 ml medications Current Medications Medications Dose Ordered Sig/Wally Route Start Time Stop Time Status Last Admin Dose Admin Fentanyl Citrate 250 ml @ 2.5 mls/hr Q24H IV 10/04/24 09:45 10/22/24 00:32 22.5 MLS/HR Ondansetron HCl 4 mg Q4HP PRN IV 10/04/24 11:45 Morphine Sulfate 2 mg Q4HPRN PRN IV 10/04/24 11:45 Cancel Nitroglycerin 0.4 mg Q5MINP PRN SL 10/04/24 11:45 Morphine Sulfate 2 mg Q30M PRN IV 10/04/24 11:45 Cancel Lorazepam 50 mg/ Sodium Chloride 50 ml @ 1 mls/hr Q24H IV 10/04/24 18:15 Cancel Midazolam HCl 50 ml @ 1 mls/hr Q24H IV 10/04/24 18:30 10/22/24 00:31 6 MLS/HR Amino Acids 0 ml @ 0 mls/hr PER PHARMACY IV 10/05/24 14:30 UNV Diagnostic Test (Pha) 1 strip Q6HR 10/05/24 18:00 10/29/24 12:30 1 STRIP Insulin Human Regular FOLLOW SLIDING SCALE Q6HR SC 10/05/24 18:00 10/25/24 11:04 2 UNITS Dextrose 50 ml UD IV 10/05/24 14:45 Meropenem 50 ml @ 17 mls/hr Q12HR IV 10/07/24 10:00 UNV Labetalol HCl 10 mg Q2HPRN PRN IV 10/08/24 09:30 Levalbuterol HCl 0.625 mg Q6HR NEB 10/13/24 12:00 10/29/24 11:08 0.625 MG Ipratropium [place] 0.5 mg Q6HR NEB 10/13/24 12:00 10/29/24 11:08 0.5 MG Norepinephrine Bitartrate 32 mg/ Sodium Chloride 250 ml @ 0.938 mls/ hr Q24H IV 10/14/24 10:15 10/25/24 19:15 0.938 MLS/HR Epoetin Roger-epbx 10,000 unit MWF SC 10/19/24 17:00 10/29/24 11:03 10,000 UNIT Bumetanide 1 mg DAILY IV 10/22/24 10:00 10/29/24 09:15 1 MG Morphine Sulfate 2 mg Q4HPRN PRN IV 10/21/24 11:30 10/27/24 08:57 2 MG Morphine Sulfate 2 mg Q30M PRN IV 10/21/24 11:30 Nicardipine/ Sodium Chloride 200 ml @ 50 mls/hr Q4H IV 10/22/24 08:45 10/22/24 08:47 50 MLS/HR Metoprolol Tartrate 25 mg BID PO 10/22/24 10:00 10/29/24 11:00 25 MG Acetaminophen 650 mg Q6HP PRN GT 10/22/24 09:00 10/24/24 01:45 650 MG Linezolid 300 ml @ 150 mls/hr Q12HR IV 10/24/24 10:00 10/29/24 09:15 150 MLS/HR Piperacillin Sod/ Tazobactam Sod 50 ml @ 12.5 mls/hr Q8H IV 10/24/24 16:00 10/29/24 09:14 12.5 MLS/HR Metoclopramide HCl 5 mg Q6HR IV 10/26/24 12:00 10/28/24 17:47 5 MG Metoprolol Tartrate 1.25 mg Q6HPRN PRN IV 10/27/24 09:45 10/27/24 18:11 1.25 MG Amino Acids 0 ml @ 0 mls/hr PER PHARMACY IV 10/28/24 09:15 Acetaminophen 650 mg Q6HP PRN [place] 10/28/24 09:15 Sucralfate 1 gm BID@0600,2200 GT 10/28/24 22:00 10/29/24 06:33 1 GM Sodium Chloride 20 meq/Potassium Chloride 20 meq/ Multivitamins 10 ml/Chromium/ Copper/Manganese/ Zinc 1 ml/Amino Acids/Dextrose/ Purified Water 926 ml @ 38 mls/hr [id number] IV 10/28/24 22:00 10/29/24 21:59 10/28/24 21:50 38 MLS/HR Pantoprazole Sodium 50 ml @ 0 mls/hr Q0M IV 10/28/24 16:15 Cancel Pantoprazole Sodium 50 ml @ 12.5 mls/hr Q4H IV 10/28/24 17:15 10/29/24 14:01 12.5 MLS/HR Fat Emulsion Intravenous 50 ml/ Sodium Chloride 30 meq/Potassium Chloride 30 meq/ Calcium Gluconate 2.3 meq/Magnesium Sulfate 6 meq/ Multivitamins 10 ml/Amino Acids/ Dextrose 1,038.9462 ml @ 43 mls/hr [id number] IV 10/29/24 22:00 10/30/24 21:59 Examination: GENERAL:Abnormal, LUNGS:Abnormal, ABDOMEN:Abnormal laboratory and microbiology Laboratory Tests 10/29/24 16:11 10/29/24 03:00 Test 10/29/24 03:00 Range/Units Serum Glucose 134 H 74-106 mg/dL Microbiology Date/Time Source Procedure Growth Status 10/23/24 09:50 Voided Urine Urine Culture - Final Complete 10/23/24 09:50 Blood Blood Culture - Final NO GROWTH AFTER 5 DAYS OF INCUBATION. Complete 10/18/24 09:21 Pleural Fluid Gram Stain - Final Complete 10/18/24 09:21 Pleural Fluid Body Fluid Culture - Final Complete 10/16/24 12:05 Bronchial Washings Gram Stain - Final Complete 10/16/24 12:05 Bronchial Washings Respiratory Culture - Final Complete 10/04/24 17:10 Nose MRSA Screen - Final Complete Problem List/Assessment/Plan Problem List/Assessment/Plan 48-year-old male presents to the hospital abdominal pain patient was diagnosed with acute gastric perforation status post surgery . Acute kidney injury hemodynamically mediated requiring acute inpatient hemodialysis Acute respiratory failure -> now trach to vent Perforated gastric ulcer status post exploratory laparoscopic surgery Hypokalemia Anemia due to chronic disease/inflammation HD on hold today Epogen, PRBC today b/c hb less than 8.0, recommend repeat h/h in am and repeat PRBC again in am on HD if hb remains low GI consult keep MAP > 65 Albumin for support Avoid hypotension Strict Is&Os Plan discussed with: Patient Dietary Evaluation Review Comments: 1. Continue TPN to meet at least 75% estimated needs 2. Continue current POC Expected Outcomes/Goals: FU 2-3 days to meet adequate energy & protein within 7 days of NPO Protein Calorie Malnutrition: Severe (rn) Critical Care Time (mins): 33 CC Plasma Assessment Blood Product Administration S: [id number] ISABELLE CASTELLANO MD Oct 29, 2024 17:29
[2024-10-29] MEDS: TPN PER PHARMACY IV NR (21:17)
--- NOTE | 2024-10-29 21:40 | DVH ---
Date: 10/29/2024 08:51 PM Examination: XY KUB ABDOMEN SINGLE VIEW History: gi bleed Comparison: XY KUB ABDOMEN SINGLE VIEW on DOS: 10/16/24 TECHNIQUE: Frontal views of the abdomen was obtained. FINDINGS: Bowel gas pattern is unremarkable. Right-sided nephrostomy tube in place. Enteric tube in the stomach below the left diaphragm. The lung bases are unremarkable. No acute osseous abnormality identified. IMPRESSION: 1. Nonobstructive bowel gas pattern. 2. Right nephrostomy tube in place 3. Nasogastric tube in place.
[2024-10-30] VITALS (111 sets, daily range): BP systolic 53–228; BP diastolic 25–117; PULSE 72–150; RESP 13–39; TEMP 99.1–102.2; O2SAT 90–100
[2024-10-30 03:49] LABS: Hematocrit 26.0 % (41.0-53.0); Hemoglobin 8.7 g/dL (13.5-17.5); Mean Corpuscular Hemoglobin 29.6 pg (28.0-32.0); Mean Corpuscular Volume 88.2 fL (80.0-100.0); Nucleated Red Blood Cells % 0.0 %
[2024-10-30 03:58] LABS: Albumin 3.2 g/dL (3.2-4.8); Anion Gap 15 (5-15); BUN/Creatinine Ratio 13.3 (10.0-20.0); Carbon Dioxide 22 mmol/L (20-31); Magnesium 1.8 mg/dL (1.6-2.6); Total Protein 6.5 g/dL (5.7-8.2)
[2024-10-30 04:43] LABS: Alanine Aminotransferase 134 U/L (7-40); Alkaline Phosphatase 123 U/L (46-116); Bilirubin, Total 3.1 mg/dL (0.2-1.0); Blood Urea Nitrogen 48 mg/dL (9-23); Calcium 8.1 mg/dL (8.7-10.4); Chloride 98 mmol/L (98-107); Glucose 157 mg/dL (74-106); Potassium 2.9 mmol/L (3.5-5.1); Sodium 135 mmol/L (136-145)
--- NOTE | 2024-10-30 05:24 | DVH ---
CHEST RADIOGRAPH Indication: s/p trach, pna Technique: Single frontal view of the chest was obtained Comparison: XY CHEST PORTABLE on DOS: 10/29/24 FINDINGS: Lines and Tubes: There is a pigtail catheter overlying the right lung base. There is a pigtail cathet er overlying the right upper quadrant. Left central venous catheter terminates in the superior vena c rosaline. The endotracheal tube terminates 3.0 cm above the [place]ia. Enteric tube terminates in the stomach . Lungs: Hazy right lung opacities. Pleura: Small right pleural effusion. No pneumothorax. Cardiomediastinal contours: Unremarkable Bones: No acute osseous abnormality. IMPRESSION: 1. Appropriate position of the support lines and tubes. 2. Hazy right lung opacities and pleural effusion.
[2024-10-30] MEDS: POTASSIUM CHL 20MEQ/100ML 100 ML IV ONE ×2 (05:54→10:48)
[2024-10-30 07:38] LABS: Base Excess -0.9 mmol/L (-2.0-3.0)
--- NOTE | 2024-10-30 08:50 | DVH ---
INDICATION: GI BLEED TECHNIQUE: Multiple real-time sonographic images were obtained of the right upper quadrant. COMPARISON: US LIVER on DOS: 10/09/24 FINDINGS: The liver demonstrates homogenous echotexture without focal mass lesions. The liver measure s 15cm. There is no intrahepatic or extrahepatic ductal dilatation. The common duct measures 0.2 m m. GALLBLADDER SURGICALLY REMOVED. The right kidney measures 11 cm. The right kidney is normal in contour, size, and shape. The echogen icity is normal. There is no hydronephrosis. The pancreas is not well visualized due to overlying bowel gas. IMPRESSION: No sonographic evidence of gallstones or acute cholecystitis.
[2024-10-30] MEDS: LABETALOL HCL 20 MG/4 ML VL IV PRN (08:51)
--- NOTE | 2024-10-30 10:55 | DVHPN2 ---
Progress Note - Dictate Date Seen: Oct 30, 2024 Medical Necessity Reason Pt with a Central, PICC or Fol: No The following are medically ne: Central Line, Gómez Catheter Reason for gómez catheter: Strict I&O Subjective Mr. Perez is a 48 years old right-handed gentleman with a history of hypertension, dyslipidemia, multiple strokes, he was brought to the [facility] on 10/04/2024 with a chief company of recurrent syncope, in the hospital, the patient was found to have perforated viscus, and he went through surgical treatment, he was hospital course has been complicated with sepsis, septic shock, pneumonia, right upper extremity DVT. With appropriate treatment, the patient has improved, but he does not mentally recover as anticipated. I saw him on 08/23/2023 for TIA I have seen and examined the patient, discussed with his nurse. He is on vent, awake, very weak, he follows verbal commands, I have not see movement in the extremities Urinalysis, 08/22/2023: Unremarkable UDS, 08/22/2023: Negative WBC/Hb/PLT'/MCV, 08/22/2023: 10.8/13.1/184/87.4, 10/28/2024: 15/8/487/89.3 Troponin 1 high-sensitivity, 08/22/2023: 336, 273/300 BUNs/CR, 08/22/2023: 15/1.45 GFR, 08/22/2023: 59 Liver function test, 08/22/2023: Unremarkable TG/CHO L/LDL/HDL, 08/2023: 136/166/111/39 TSH, 08/23/2023: 4.25 DONAL, 08/23/2023: 1. No evidence of intracardiac source of embolus in the study conducted today. 2. Normal valves without significant masses or change vegetations were discernible. 3. No evidence of intra-atrial shunting by bubble study and color Doppler. 4. Mild atherosclerotic plaquing was visualized in the arch of the aorta without evidence of dissection in the visualized part CT head, 10/24/2024: 1. No intracranial hemorrhage or mass effect. 2. [id number] chronic microvascular ischemic changes. 3. Old bilateral basal ganglia lacunar infarcts. 4. Small bilateral mastoid effusions. CT abdomen/pelvis, 10/04/2024: 1. Extensive intra-abdominal free air concerning for perforated viscus. Surgical consultation is recommended. 2. Enteritis is seen in multiple loops of small bowel in the left hemiabdomen. 3. Moderate abdominopelvic ascites. 4. Small right pleural effusion. CTA neck, head, 08/22/2023:1. CTA head demonstrates no evidence of large vessel occlusion, aneurysm, or significant stenosis. 2. CTA neck demonstrates no evidence of carotid or vertebral dissection or significant stenosis. 3. No noncontrast CT head was performed. 4. Additional findings as detailed above MRI head, 08/23/2023: No acute infarct, intracranial hemorrhage, mass effect, or hydrocephalus. Moderate periventricular and deep subcortical white matter T2 hyperintensities which are nonspecific, but most likely related to sequela of chronic microvascular ischemic changes (I have reviewed the MRI films with our in-house radiologist, Dr. Black, the patient has bilateral multiple subacute/chronic infarcts) vital signs Vital Sign Date Time Temp Pulse Resp B/P (MAP) Pulse Ox O2 Delivery O2 Flow Rate FiO2 10/30/24 10:20 87 20 143/71 (95) 100 30 10/30/24 10:00 Mechanical Ventilator+ 10/30/24 09:30 100.4 10/29/24 18:00 8 Total Intake and Output 10/29/24 10/29/24 10/30/24 15:00 23:00 07:00 Intake Total 704.0 ml 408.0 ml 1141.0 ml Output Total 850 ml 220 ml Balance 704.0 ml -442.0 ml 921.0 ml medications Current Medications Medications Dose Ordered Sig/Wally Route Start Time Stop Time Status Last Admin Dose Admin Fentanyl Citrate 250 ml @ 2.5 mls/hr Q24H IV 10/04/24 09:45 10/22/24 00:32 22.5 MLS/HR Ondansetron HCl 4 mg Q4HP PRN IV 10/04/24 11:45 Morphine Sulfate 2 mg Q4HPRN PRN IV 10/04/24 11:45 Cancel Nitroglycerin 0.4 mg Q5MINP PRN SL 10/04/24 11:45 Morphine Sulfate 2 mg Q30M PRN IV 10/04/24 11:45 Cancel Lorazepam 50 mg/ Sodium Chloride 50 ml @ 1 mls/hr Q24H IV 10/04/24 18:15 Cancel Midazolam HCl 50 ml @ 1 mls/hr Q24H IV 10/04/24 18:30 10/22/24 00:31 6 MLS/HR Amino Acids 0 ml @ 0 mls/hr PER PHARMACY IV 10/05/24 14:30 UNV Diagnostic Test (Pha) 1 strip Q6HR 10/05/24 18:00 10/30/24 05:37 1 STRIP Insulin Human Regular FOLLOW SLIDING SCALE Q6HR SC 10/05/24 18:00 10/30/24 00:04 2 UNITS Dextrose 50 ml UD IV 10/05/24 14:45 Meropenem 50 ml @ 17 mls/hr Q12HR IV 10/07/24 10:00 UNV Labetalol HCl 10 mg Q2HPRN PRN IV 10/08/24 09:30 10/30/24 08:51 10 MG Levalbuterol HCl 0.625 mg Q6HR NEB 10/13/24 12:00 10/30/24 06:14 0.625 MG Ipratropium [place] 0.5 mg Q6HR NEB 10/13/24 12:00 10/30/24 06:14 0.5 MG Norepinephrine Bitartrate 32 mg/ Sodium Chloride 250 ml @ 0.938 mls/ hr Q24H IV 10/14/24 10:15 10/25/24 19:15 0.938 MLS/HR Epoetin Roger-epbx 10,000 unit MWF SC 10/19/24 17:00 10/29/24 11:03 10,000 UNIT Bumetanide 1 mg DAILY IV 10/22/24 10:00 10/29/24 09:15 1 MG Morphine Sulfate 2 mg Q4HPRN PRN IV 10/21/24 11:30 10/27/24 08:57 2 MG Morphine Sulfate 2 mg Q30M PRN IV 10/21/24 11:30 Nicardipine/ Sodium Chloride 200 ml @ 50 mls/hr Q4H IV 10/22/24 08:45 10/22/24 08:47 50 MLS/HR Acetaminophen 650 mg Q6HP PRN GT 10/22/24 09:00 10/30/24 08:30 650 MG Linezolid 300 ml @ 150 mls/hr Q12HR IV 10/24/24 10:00 10/29/24 21:51 150 MLS/HR Piperacillin Sod/ Tazobactam Sod 50 ml @ 12.5 mls/hr Q8H IV 10/24/24 16:00 10/30/24 08:31 12.5 MLS/HR Metoclopramide HCl 5 mg Q6HR IV 10/26/24 12:00 10/28/24 17:47 5 MG Metoprolol Tartrate 1.25 mg Q6HPRN PRN IV 10/27/24 09:45 10/27/24 18:11 1.25 MG Amino Acids 0 ml @ 0 mls/hr PER PHARMACY IV 10/28/24 09:15 Acetaminophen 650 mg Q6HP PRN [place] 10/28/24 09:15 Sucralfate 1 gm BID@0600,2200 GT 10/28/24 22:00 10/30/24 05:36 1 GM Pantoprazole Sodium 50 ml @ 0 mls/hr Q0M IV 10/28/24 16:15 Cancel Pantoprazole Sodium 50 ml @ 12.5 mls/hr Q4H IV 10/28/24 17:15 10/30/24 08:51 12.5 MLS/HR Fat Emulsion Intravenous 50 ml/ Sodium Chloride 30 meq/Potassium Chloride 30 meq/ Calcium Gluconate 2.3 meq/Magnesium Sulfate 6 meq/ Multivitamins 10 ml/Amino Acids/ Dextrose 1,038.9462 ml @ 43 mls/hr [id number] IV 10/29/24 22:00 10/30/24 21:59 10/29/24 21:17 43 MLS/HR Fat Emulsion Intravenous 50 ml/ Sodium Chloride 40 meq/Sodium Acetate 10 meq/ Potassium Chloride 40 meq/ Potassium Acetate 10 meq/Calcium Gluconate 4.65 meq/Magnesium Sulfate 10 meq/ Multivitamins 10 ml/Amino Acids/ Dextrose 1,212.5 ml @ 50 mls/hr [id number] IV 10/30/24 22:00 10/31/24 21:59 objective General: the patient is well developed and nourished. No acute distress. MENTAL STATUS: Subjective SPEECH, LANGUAGE, HIGHER CORTICAL FUNCTION: He does not vocalize. CRANIAL NERVES:Intact visual ansari to confrontation (visual thread). Pupils are equal, round and reactive. EOMs full and conjugate. Mandibular strength intact. Facial muscles symmetrical and strength intact. SENSATION: Sensation to touch and pinprick is unremarkable MOTOR: Normal muscle bulk. No fasciculations. No abnormal movements or posturing. Moves the left-hand slightly (RN report) REFLEXES: Deep tendon reflexes are increased bilaterally, clonic in the left knee. No pathological reflexes. CEREBELLAR/COORDINATION: Deferred GAIT/STATION: deferred laboratory and microbiology Laboratory Tests 10/30/24 03:00 Test 10/30/24 03:00 Range/Units Serum Glucose 157 H 74-106 mg/dL Problem List Altered mental status Metabolic encephalopathy secondary to sepsis, septic shock, pneumonia Hypoxic encephalopathy Viscus perforation status post surgical repair GI bleeding Anemia Respiratory failure S/P tracheostomy Multiple strokes Secondary to history methamphetamine, cocaine, alcohol use History of alcohol abuse History of cocaine, methamphetamine abuse Hyperreflexia secondary to multiple strokes Assessment/Plan Monitoring Supportive treatment ICU care Stabilize vitals Respiratory support/vent management Follow-up labs MRI head IV antibiotics Resume Aspirin 81 mg daily later Quit tobacco smoking No more alcohol, street drug abuse Stroke risk factors discussed More recommended per clinical course This medical document was created using an electronic medical record system with [employer] dictation system. Although this document has been carefully reviewed, there may still be some phonetic and typographical errors. These areas are purely typographical due to imperfections of the software programs, and do not reflect any compromise in the patient's medical care. Prognosis guarded Dietary Evaluation Review Comments: 1. Continue TPN to meet at least 75% estimated needs 2. Continue current POC Expected Outcomes/Goals: FU 2-3 days to meet adequate energy & protein within 7 days of NPO Protein Calorie Malnutrition: Severe (rn) Plan discussed with: Other CC Plasma Assessment Blood Product Administration S: [id number] LEANDRO BLACK MD Oct 30, 2024 10:55
[2024-10-30] MEDS: LIDOCAINE 1% (LOCAL ANESTH.) PF 5ml SDV ONE (10:56)
--- NOTE | 2024-10-30 11:02 | DVHPN2 ---
Subjective Patient continues to be encephalopathic. Following some commands Reviewed: Care Plan, H&P, Labs, Medications, Previous Orders, Radiology, Other (Consultants) Changes from previous H/P or p: Changes General: Per HPI Objective Vitals Vital Signs Date Time Temp Pulse Resp B/P (MAP) Pulse Ox O2 Delivery O2 Flow Rate FiO2 10/30/24 10:20 87 20 143/71 (95) 100 30 10/30/24 10:00 Mechanical Ventilator+ 10/30/24 09:30 100.4 10/29/24 18:00 8 Intake/Output Intake and Output 10/30/24 07:00 Intake Total 2253.0 ml Output Total 1070 ml Balance 1183.0 ml Intake Oral 80 ml IV Total 1873.0 ml Blood Product 300 ml Output Urine Total 700 ml Gastric Drainage Total 200 ml Drainage Total 170 ml # Bowel Movements 3 General Appearance: Alert, mild distress, Other (Intubated and sedated) HEENT: Atraumatic, PERRLA Lungs: Other (Mechanical ventilation. Decreased breath sounds at bases) Cardiovascular: Normal S1, Normal S2, Other (Sinus tachycardia) Abdomen: Other (NG with persistent burgundy secretion) Neuro: Other (Unable to assess) Skin: Dry, Intact, Wounds, Other Psych/Mental Status: Other Medications Current Medications Medications Dose Ordered Sig/Wally Route Start Time Stop Time Status Last Admin Dose Admin Fentanyl Citrate 250 ml @ 2.5 mls/hr Q24H IV 10/04/24 09:45 10/22/24 00:32 22.5 MLS/HR Ondansetron HCl 4 mg Q4HP PRN IV 10/04/24 11:45 Morphine Sulfate 2 mg Q4HPRN PRN IV 10/04/24 11:45 Cancel Nitroglycerin 0.4 mg Q5MINP PRN SL 10/04/24 11:45 Morphine Sulfate 2 mg Q30M PRN IV 10/04/24 11:45 Cancel Lorazepam 50 mg/ Sodium Chloride 50 ml @ 1 mls/hr Q24H IV 10/04/24 18:15 Cancel Midazolam HCl 50 ml @ 1 mls/hr Q24H IV 10/04/24 18:30 10/22/24 00:31 6 MLS/HR Amino Acids 0 ml @ 0 mls/hr PER PHARMACY IV 10/05/24 14:30 UNV Diagnostic Test (Pha) 1 strip Q6HR 10/05/24 18:00 10/30/24 05:37 1 STRIP Insulin Human Regular FOLLOW SLIDING SCALE Q6HR SC 10/05/24 18:00 10/30/24 00:04 2 UNITS Dextrose 50 ml UD IV 10/05/24 14:45 Meropenem 50 ml @ 17 mls/hr Q12HR IV 10/07/24 10:00 UNV Labetalol HCl 10 mg Q2HPRN PRN IV 10/08/24 09:30 10/30/24 08:51 10 MG Levalbuterol HCl 0.625 mg Q6HR NEB 10/13/24 12:00 10/30/24 06:14 0.625 MG Ipratropium [place] 0.5 mg Q6HR NEB 10/13/24 12:00 10/30/24 06:14 0.5 MG Norepinephrine Bitartrate 32 mg/ Sodium Chloride 250 ml @ 0.938 mls/ hr Q24H IV 10/14/24 10:15 10/25/24 19:15 0.938 MLS/HR Epoetin Roger-epbx 10,000 unit MWF SC 10/19/24 17:00 10/29/24 11:03 10,000 UNIT Bumetanide 1 mg DAILY IV 10/22/24 10:00 10/29/24 09:15 1 MG Morphine Sulfate 2 mg Q4HPRN PRN IV 10/21/24 11:30 10/27/24 08:57 2 MG Morphine Sulfate 2 mg Q30M PRN IV 10/21/24 11:30 Nicardipine/ Sodium Chloride 200 ml @ 50 mls/hr Q4H IV 10/22/24 08:45 10/22/24 08:47 50 MLS/HR Acetaminophen 650 mg Q6HP PRN GT 10/22/24 09:00 10/30/24 08:30 650 MG Linezolid 300 ml @ 150 mls/hr Q12HR IV 10/24/24 10:00 10/29/24 21:51 150 MLS/HR Piperacillin Sod/ Tazobactam Sod 50 ml @ 12.5 mls/hr Q8H IV 10/24/24 16:00 10/30/24 08:31 12.5 MLS/HR Metoclopramide HCl 5 mg Q6HR IV 10/26/24 12:00 10/28/24 17:47 5 MG Metoprolol Tartrate 1.25 mg Q6HPRN PRN IV 10/27/24 09:45 10/27/24 18:11 1.25 MG Amino Acids 0 ml @ 0 mls/hr PER PHARMACY IV 10/28/24 09:15 Acetaminophen 650 mg Q6HP PRN MS 10/28/24 09:15 Sucralfate 1 gm BID@0600,2200 GT 10/28/24 22:00 10/30/24 05:36 1 GM Pantoprazole Sodium 50 ml @ 0 mls/hr Q0M IV 10/28/24 16:15 Cancel Pantoprazole Sodium 50 ml @ 12.5 mls/hr Q4H IV 10/28/24 17:15 10/30/24 08:51 12.5 MLS/HR Fat Emulsion Intravenous 50 ml/ Sodium Chloride 30 meq/Potassium Chloride 30 meq/ Calcium Gluconate 2.3 meq/Magnesium Sulfate 6 meq/ Multivitamins 10 ml/Amino Acids/ Dextrose 1,038.9462 ml @ 43 mls/hr [id number] IV 10/29/24 22:00 10/30/24 21:59 10/29/24 21:17 43 MLS/HR Fat Emulsion Intravenous 50 ml/ Sodium Chloride 40 meq/Sodium Acetate 10 meq/ Potassium Chloride 40 meq/ Potassium Acetate 10 meq/Calcium Gluconate 4.65 meq/Magnesium Sulfate 10 meq/ Multivitamins 10 ml/Amino Acids/ Dextrose 1,212.5 ml @ 50 mls/hr [id number] IV 10/30/24 22:00 10/31/24 21:59 Lorazepam 1 mg ONCE PRN IV 10/30/24 11:00 UNV Laboratory Results Laboratory Tests 10/30/24 03:00 Chemistry Test 10/30/24 03:00 Albumin 3.2 g/dL (3.2-4.8) Calcium Level 8.1 mg/dL (8.7-10.4) L Magnesium Level 1.8 mg/dL (1.6-2.6) Phosphorus Level 4.0 mg/dL (2.4-5.1) Total Protein 6.5 g/dL (5.7-8.2) LFT Test 10/30/24 03:00 Alanine Aminotransferase (ALT) 134 U/L (7-40) H Alkaline Phosphatase 123 U/L (46-116) H Aspartate Amino Transferase (AST) 76 U/L (13-40) H Total Bilirubin 3.1 mg/dL (0.2-1.0) H Urinalysis Test 10/05/24 15:05 10/11/24 18:00 10/26/24 20:33 Urine Mucus Few (None Seen) Urine Total Protein 85.0 mg/dL (1-14) H Urine Creatinine 48.05 mg/dL (30.0-125.0) Urine Sodium 76 mmol/L (40-220) Urine Color Light-yellow (Yellow) Urine Clarity Clear (Clear) Urine pH 7.0 (5.0-9.0) Urine Specific [place] 1.014 (1.001-1.035) Urine Protein 1+ (Negative) H Urine Ketones Negative (Negative) Urine Blood 1+ /uL (Negative) H Urine Nitrite Negative (Negative) Urine Bilirubin Negative (Negative) Urine Urobilinogen Normal mg/dL (Negative) Urine Leukocyte Esterase Negative /uL (Negative) Urine RBC 1 /hpf (0 - 3) Urine Microscopic WBC 3 /HPF (0-3) Urine Squamous Epithelial Cells None seen /hpf (<5) Urine Bacteria Few /hpf (None Seen) H Urine Glucose Normal mg/dL (Normal) Blood Gas Results Test 10/30/24 06:30 Arterial Blood pH 7.517 (7.350-7.450) FiO2 % 30.0 Microbiology Microbiology Date/Time Source Procedure Growth Status 10/23/24 09:50 Voided Urine Urine Culture - Final Complete 10/23/24 09:50 Blood Blood Culture - Final NO GROWTH AFTER 5 DAYS OF INCUBATION. Complete 10/18/24 09:21 Pleural Fluid Gram Stain - Final Complete 10/18/24 09:21 Pleural Fluid Body Fluid Culture - Final Complete 10/16/24 12:05 Bronchial Washings Gram Stain - Final Complete 10/16/24 12:05 Bronchial Washings Respiratory Culture - Final Complete 10/04/24 17:10 Nose MRSA Screen - Final Complete Labs and/or images reviewed: Labs reviewed by me, Image(s) reviewed by me Assessment/Plan Assessment/Plan Impression: -severe septic shock -pneumoperitoneum secondary to perforated gastric ulcer -acute kidney injury, hemodynamically mediated, probable VMN -acute hypoxic respiratory failure -shock liver -nicotine dependence -history of CVA -right upper extremity DVT -multifocal pneumonia, probable Gram-positive/Gram-negative etiology -anemia secondary to nutrition, renal failure -bilateral pleural effusions -small left pneumothorax -Failure of ventilator weaning, status post tracheostomy Plan: Events: Intermittently following commands. Plans for MRI today. CPAP trial today. -continue TPN -GI consultation: Recommendations reviewed. Patient placed on Protonix drip -further recommendations per surgical consultation -antibiotic therapy: Zosyn, Zyvox -nephrology consultation: Recommendations reviewed. Patient received HD yesterday -Continue to hold anticoagulation -repeat labs, chest x-ray, ABG in a.m. -Discussed plan of care with . All questions answered. Critical care time spent with patient discussing and formulating plan of care: 90 minutes. This does not include time spent performing procedures. This medical document was created using an electronic medical record system with Shoto dictation system. Although this document has been carefully reviewed, there may still be some phonetic and typographical errors. These areas are purely typographical due to imperfections of the software programs, and do not reflect any compromise in the patient's medical care. Plan discussed with: Patient, Other (RN) My Orders Orders - CHEYENNE PIKE NP Procedure Category Date Status Time Amino Acid PHA 10/29/24 In Process Infusion... W/Fat 22:00 Tpn Per Pharmacy [facility] 10/29/24 In Process 22:00 Abg W/ Co-Ox RT 10/30/24 Logged 06:00 Basic Metabolic Panel LAB 10/31/24 Verified 04:00 Complete Blood Count LAB 10/31/24 Verified 04:00 Cpap Trial For Am ORDERS 10/30/24 Transmitted 09:13 Amino Acid PHA 10/30/24 In Process Infusion... W/Fat 22:00 Potassium Chl PHA 10/30/24 In Process 20meq/100ml 10:00 Comprehensive LAB 10/31/24 Verified Metabolic Panel 05:00 Phosphorus LAB 10/31/24 Verified 05:00 Magnesium LAB 10/31/24 Verified 05:00 Tpn Per Pharmacy [facility] 10/30/24 In Process 22:00 Date of Service: Oct 30, 2024 Billing Provider: CHEYENNE PIKE NP Common Visit Codes: 44326-EYD/OBS DISCH DAY >30min CHEYENNE PIKE NP Oct 30, 2024 11:02
--- NOTE | 2024-10-30 13:01 | DVHPN2 ---
Progress Note Date Seen: Oct 30, 2024 Resident Creating Document: KWASI MILLAN Medical Necessity Reason Pt with a Central, PICC or Fol: No The following are medically ne: Central Line, Gómez Catheter Reason for gómez catheter: Strict I&O Subjective Review of Systems Patient is 49 years old male with a past medical history of hypertension, hyperlipidemia, CVA in August 2023 with no deficit, memory loss, left knee surgery. To the ED with a syncope for 1 week. Per , patient has been complaining of some constipation for the past several days. On admission patient was found to be severely hypotensive and hyponatremic and severely anemic as well. He has since received multiple units of PRBC and was intubated. CT of the abdomen and pelvis showed perforated viscus and surgery was consulted. On admission patient had leukocytosis with WBC 16.8, hemoglobin was 4.3, hypokalemia with potassium 3.0, creatinine 4.14, BUN 55, On 10/04/2024 patient had-Expiratory laparotomy with closure of perforated pyloric ulcer with omental patch Patient is also status post cholecystostomy due to cholecystitis Patient status post tracheostomy Patient is seen today for clinical evaluation. Labs and chart reviewed. Patient's chest tube drainage was removed from the right side of the chest today with all as septic precaution. Patient hypertension yesterday. Patient also seen by neurologist and manager technical training. As per Nephrology recommendation HD today. Objective vital signs Vital Sign Date Time Temp Pulse Resp B/P (MAP) Pulse Ox O2 Delivery O2 Flow Rate FiO2 10/30/24 12:35 128 172/87 10/30/24 12:29 28 99 30 10/30/24 12:00 Mechanical Ventilator+ 10/30/24 09:30 100.4 10/29/24 18:00 8 Total Intake and Output 10/29/24 10/29/24 10/30/24 15:00 23:00 07:00 Intake Total 704.0 ml 408.0 ml 1141.0 ml Output Total 850 ml 220 ml Balance 704.0 ml -442.0 ml 921.0 ml medications Current Medications Medications Dose Ordered Sig/Wally Route Start Time Stop Time Status Last Admin Dose Admin Fentanyl Citrate 250 ml @ 2.5 mls/hr Q24H IV 10/04/24 09:45 10/22/24 00:32 22.5 MLS/HR Ondansetron HCl 4 mg Q4HP PRN IV 10/04/24 11:45 Morphine Sulfate 2 mg Q4HPRN PRN IV 10/04/24 11:45 Cancel Nitroglycerin 0.4 mg Q5MINP PRN SL 10/04/24 11:45 Morphine Sulfate 2 mg Q30M PRN IV 10/04/24 11:45 Cancel Lorazepam 50 mg/ Sodium Chloride 50 ml @ 1 mls/hr Q24H IV 10/04/24 18:15 Cancel Midazolam HCl 50 ml @ 1 mls/hr Q24H IV 10/04/24 18:30 10/22/24 00:31 6 MLS/HR Amino Acids 0 ml @ 0 mls/hr PER PHARMACY IV 10/05/24 14:30 UNV Diagnostic Test (Pha) 1 strip Q6HR 10/05/24 18:00 10/30/24 11:48 1 STRIP Insulin Human Regular FOLLOW SLIDING SCALE Q6HR SC 10/05/24 18:00 10/30/24 00:04 2 UNITS Dextrose 50 ml UD IV 10/05/24 14:45 Meropenem 50 ml @ 17 mls/hr Q12HR IV 10/07/24 10:00 UNV Labetalol HCl 10 mg Q2HPRN PRN IV 10/08/24 09:30 10/30/24 12:35 10 MG Levalbuterol HCl 0.625 mg Q6HR NEB 10/13/24 12:00 10/30/24 12:01 0.625 MG Ipratropium [place] 0.5 mg Q6HR NEB 10/13/24 12:00 10/30/24 12:01 0.5 MG Norepinephrine Bitartrate 32 mg/ Sodium Chloride 250 ml @ 0.938 mls/ hr Q24H IV 10/14/24 10:15 10/25/24 19:15 0.938 MLS/HR Epoetin Roger-epbx 10,000 unit MWF SC 10/19/24 17:00 10/29/24 11:03 10,000 UNIT Bumetanide 1 mg DAILY IV 10/22/24 10:00 10/30/24 11:45 1 MG Morphine Sulfate 2 mg Q4HPRN PRN IV 10/21/24 11:30 10/27/24 08:57 2 MG Morphine Sulfate 2 mg Q30M PRN IV 10/21/24 11:30 Nicardipine/ Sodium Chloride 200 ml @ 50 mls/hr Q4H IV 10/22/24 08:45 10/22/24 08:47 50 MLS/HR Acetaminophen 650 mg Q6HP PRN GT 10/22/24 09:00 10/30/24 08:30 650 MG Linezolid 300 ml @ 150 mls/hr Q12HR IV 10/24/24 10:00 10/30/24 11:45 150 MLS/HR Piperacillin Sod/ Tazobactam Sod 50 ml @ 12.5 mls/hr Q8H IV 10/24/24 16:00 10/30/24 08:31 12.5 MLS/HR Metoclopramide HCl 5 mg Q6HR IV 10/26/24 12:00 10/28/24 17:47 5 MG Metoprolol Tartrate 1.25 mg Q6HPRN PRN IV 10/27/24 09:45 10/27/24 18:11 1.25 MG Amino Acids 0 ml @ 0 mls/hr PER PHARMACY IV 10/28/24 09:15 Acetaminophen 650 mg Q6HP PRN [place] 10/28/24 09:15 Sucralfate 1 gm BID@0600,2200 GT 10/28/24 22:00 10/30/24 05:36 1 GM Pantoprazole Sodium 50 ml @ 0 mls/hr Q0M IV 10/28/24 16:15 Cancel Pantoprazole Sodium 50 ml @ 12.5 mls/hr Q4H IV 10/28/24 17:15 10/30/24 12:12 12.5 MLS/HR Fat Emulsion Intravenous 50 ml/ Sodium Chloride 30 meq/Potassium Chloride 30 meq/ Calcium Gluconate 2.3 meq/Magnesium Sulfate 6 meq/ Multivitamins 10 ml/Amino Acids/ Dextrose 1,038.9462 ml @ 43 mls/hr [id number] IV 10/29/24 22:00 10/30/24 21:59 10/29/24 21:17 43 MLS/HR Fat Emulsion Intravenous 50 ml/ Sodium Chloride 40 meq/Sodium Acetate 10 meq/ Potassium Chloride 40 meq/ Potassium Acetate 10 meq/Calcium Gluconate 4.65 meq/Magnesium Sulfate 10 meq/ Multivitamins 10 ml/Amino Acids/ Dextrose 1,212.5 ml @ 50 mls/hr [id number] IV 10/30/24 22:00 10/31/24 21:59 Lorazepam 1 mg ONCE PRN IV 10/30/24 11:00 laboratory and microbiology Laboratory Tests 10/30/24 03:00 Test 10/30/24 03:00 Range/Units Serum Glucose 157 H 74-106 mg/dL Microbiology Date/Time Source Procedure Growth Status 10/23/24 09:50 Voided Urine Urine Culture - Final Complete 10/23/24 09:50 Blood Blood Culture - Final NO GROWTH AFTER 5 DAYS OF INCUBATION. Complete 10/18/24 09:21 Pleural Fluid Gram Stain - Final Complete 10/18/24 09:21 Pleural Fluid Body Fluid Culture - Final Complete 10/16/24 12:05 Bronchial Washings Gram Stain - Final Complete 10/16/24 12:05 Bronchial Washings Respiratory Culture - Final Complete 10/04/24 17:10 Nose MRSA Screen - Final Complete Problem List/Assessment/Plan Problem List/Assessment/Plan Assessment/Plan Impression Acute hypoxemic respiratory failure S/p tracheostomy Perforated viscus Septic shock Smoker Patient seen and examined in ICU Events Status post thoracic drain tube removal Patient was seen by Gastroenterology yesterday, patient is being followed by Neurology Seen by Nephrology today, recommended HD today S/p tracheostomy Recommended for trach collar as tolerated during day Patient had blood transfusion yesterday Labs and imaging reviewed Right-sided chest tube removed ABG reviewed Vent support Titrate to maintain sats 90% or above Trach care per RT protocols Recommended for trach collar Continue antibiotics F/u cultures Bronchodilators Monitor renal function Monitor electrolytes Supplement as needed HD per nephrology Nutritional support Tube feedings DVT prophylaxis Critical care time 35 minutes Goals of care, Code status ; discussed with >15 minutes PUD prophylaxis: DVT prophylaxis: Plan discussed with Dr. Sloan , nursing staff, Total time spent on patient evaluation, chart review, assessment and plan, discussion discussion >35 minutes Plan discussed with: Other (RN) Dietary Evaluation Review Comments: 1. Continue TPN to meet at least 75% estimated needs 2. Continue current POC Expected Outcomes/Goals: FU 2-3 days to meet adequate energy & protein within 7 days of NPO Protein Calorie Malnutrition: Severe (rn) CC Plasma Assessment Blood Product Administration S: [id number] Date of Service: Oct 30, 2024 Billing Provider: VALENTE DEE MD Common Visit Codes: NOT BILLABLE KWASI MILLAN RESIDENT Oct 30, 2024 13:01 VALENTE DEE MD Nov 01, 2024 12:55
[2024-10-30] MEDS: ACETAMINOPHEN 325 MG RECT SUPP PR PRN (14:01)
--- NOTE | 2024-10-30 14:04 | DVH ---
INDICATION: INCREASE RR TECHNIQUE: Single frontal view of the chest was obtained COMPARISON: XY CHEST PORTABLE on DOS: 10/30/24, XY CHEST PORTABLE on DOS: 10/29/24, XY CHEST PORTABLE o n DOS: 10/28/24, XY CHEST XRAY 1 VIEW on DOS: 10/27/24, XY CHEST XRAY 1 VIEW on DOS: 10/27/24, XY CHEST PO RTABLE on DOS: 10/30/24 FINDINGS: Lines and Tubes: Pigtail within the right lung base is not seen. There is a pigtail catheter overlyin g the right upper quadrant. Left central venous catheter terminates in the superior vena cava. The en dotracheal tube terminates 3.0 cm above the [place]. Enteric tube terminates in the stomach. Lungs: Hazy right lung opacities. Pleura: Small right pleural effusion. No pneumothorax. Cardiomediastinal contours: Unremarkable Bones: No acute osseous abnormality. IMPRESSION: 1. Pigtail within the right lung base is not seen. Appropriate position of the support lines and tube s. 2. Hazy right lung opacities and pleural effusion.
--- NOTE | 2024-10-30 16:31 | DVHPN2 ---
Progress Note Date Seen: Oct 30, 2024 Medical Necessity Reason Pt with a Central, PICC or Fol: No The following are medically ne: Central Line, Gómez Catheter Reason for gómez catheter: Strict I&O Subjective Review of Systems: Deferred Objective vital signs Vital Sign Date Time Temp Pulse Resp B/P (MAP) Pulse Ox O2 Delivery O2 Flow Rate FiO2 10/30/24 16:17 143 37 131/71 (91) 92 30 10/30/24 15:01 102.2 10/30/24 12:00 Mechanical Ventilator+ 10/29/24 18:00 8 Total Intake and Output 10/29/24 10/29/24 10/30/24 15:00 23:00 07:00 Intake Total 704.0 ml 408.0 ml 1141.0 ml Output Total 850 ml 220 ml Balance 704.0 ml -442.0 ml 921.0 ml medications Current Medications Medications Dose Ordered Sig/Wally Route Start Time Stop Time Status Last Admin Dose Admin Fentanyl Citrate 250 ml @ 2.5 mls/hr Q24H IV 10/04/24 09:45 10/22/24 00:32 22.5 MLS/HR Ondansetron HCl 4 mg Q4HP PRN IV 10/04/24 11:45 Morphine Sulfate 2 mg Q4HPRN PRN IV 10/04/24 11:45 Cancel Nitroglycerin 0.4 mg Q5MINP PRN SL 10/04/24 11:45 Morphine Sulfate 2 mg Q30M PRN IV 10/04/24 11:45 Cancel Lorazepam 50 mg/ Sodium Chloride 50 ml @ 1 mls/hr Q24H IV 10/04/24 18:15 Cancel Midazolam HCl 50 ml @ 1 mls/hr Q24H IV 10/04/24 18:30 10/22/24 00:31 6 MLS/HR Amino Acids 0 ml @ 0 mls/hr PER PHARMACY IV 10/05/24 14:30 UNV Diagnostic Test (Pha) 1 strip Q6HR 10/05/24 18:00 10/30/24 11:48 1 STRIP Insulin Human Regular FOLLOW SLIDING SCALE Q6HR SC 10/05/24 18:00 10/30/24 00:04 2 UNITS Dextrose 50 ml UD IV 10/05/24 14:45 Meropenem 50 ml @ 17 mls/hr Q12HR IV 10/07/24 10:00 UNV Labetalol HCl 10 mg Q2HPRN PRN IV 10/08/24 09:30 10/30/24 12:35 10 MG Levalbuterol HCl 0.625 mg Q6HR NEB 10/13/24 12:00 10/30/24 12:01 0.625 MG Ipratropium [place] 0.5 mg Q6HR NEB 10/13/24 12:00 10/30/24 12:01 0.5 MG Norepinephrine Bitartrate 32 mg/ Sodium Chloride 250 ml @ 0.938 mls/ hr Q24H IV 10/14/24 10:15 10/25/24 19:15 0.938 MLS/HR Epoetin Roger-epbx 10,000 unit MWF SC 10/19/24 17:00 10/29/24 11:03 10,000 UNIT Bumetanide 1 mg DAILY IV 10/22/24 10:00 10/30/24 11:45 1 MG Morphine Sulfate 2 mg Q4HPRN PRN IV 10/21/24 11:30 10/30/24 14:22 2 MG Morphine Sulfate 2 mg Q30M PRN IV 10/21/24 11:30 Nicardipine/ Sodium Chloride 200 ml @ 50 mls/hr Q4H IV 10/22/24 08:45 10/30/24 14:19 50 MLS/HR Acetaminophen 650 mg Q6HP PRN GT 10/22/24 09:00 Hold 10/30/24 08:30 650 MG Linezolid 300 ml @ 150 mls/hr Q12HR IV 10/24/24 10:00 10/30/24 11:45 150 MLS/HR Piperacillin Sod/ Tazobactam Sod 50 ml @ 12.5 mls/hr Q8H IV 10/24/24 16:00 10/30/24 08:31 12.5 MLS/HR Metoclopramide HCl 5 mg Q6HR IV 10/26/24 12:00 10/28/24 17:47 5 MG Metoprolol Tartrate 1.25 mg Q6HPRN PRN IV 10/27/24 09:45 10/30/24 14:44 1.25 MG Amino Acids 0 ml @ 0 mls/hr PER PHARMACY IV 10/28/24 09:15 Sucralfate 1 gm BID@0600,2200 GT 10/28/24 22:00 10/30/24 05:36 1 GM Pantoprazole Sodium 50 ml @ 0 mls/hr Q0M IV 10/28/24 16:15 Cancel Pantoprazole Sodium 50 ml @ 12.5 mls/hr Q4H IV 10/28/24 17:15 10/30/24 12:12 12.5 MLS/HR Fat Emulsion Intravenous 50 ml/ Sodium Chloride 30 meq/Potassium Chloride 30 meq/ Calcium Gluconate 2.3 meq/Magnesium Sulfate 6 meq/ Multivitamins 10 ml/Amino Acids/ Dextrose 1,038.9462 ml @ 43 mls/hr [id number] IV 10/29/24 22:00 10/30/24 21:59 10/29/24 21:17 43 MLS/HR Fat Emulsion Intravenous 50 ml/ Sodium Chloride 40 meq/Sodium Acetate 10 meq/ Potassium Chloride 40 meq/ Potassium Acetate 10 meq/Calcium Gluconate 4.65 meq/Magnesium Sulfate 10 meq/ Multivitamins 10 ml/Amino Acids/ Dextrose 1,212.5 ml @ 50 mls/hr [id number] IV 10/30/24 22:00 10/31/24 21:59 Lorazepam 1 mg ONCE PRN IV 10/30/24 11:00 Acetaminophen 650 mg Q6HP PRN [place] 10/30/24 13:30 10/30/24 14:01 650 MG Examination: GENERAL:Abnormal, CVS:Abnormal, ABDOMEN:Abnormal, NEURO:Abnormal laboratory and microbiology Laboratory Tests 10/30/24 03:00 Test 10/30/24 03:00 Range/Units Serum Glucose 157 H 74-106 mg/dL Microbiology Date/Time Source Procedure Growth Status 10/23/24 09:50 Voided Urine Urine Culture - Final Complete 10/23/24 09:50 Blood Blood Culture - Final NO GROWTH AFTER 5 DAYS OF INCUBATION. Complete 10/18/24 09:21 Pleural Fluid Gram Stain - Final Complete 10/18/24 09:21 Pleural Fluid Body Fluid Culture - Final Complete 10/16/24 12:05 Bronchial Washings Gram Stain - Final Complete 10/16/24 12:05 Bronchial Washings Respiratory Culture - Final Complete 10/04/24 17:10 Nose MRSA Screen - Final Complete Problem List/Assessment/Plan Problem List/Assessment/Plan 48-year-old male presents to the hospital abdominal pain patient was diagnosed with acute gastric perforation status post surgery . Acute kidney injury hemodynamically mediated requiring acute inpatient hemodialysis Acute respiratory failure -> now trach to vent Perforated gastric ulcer status post exploratory laparoscopic surgery Hypokalemia Anemia due to chronic disease/inflammation tachycardia HD today Epogen 3x a week GI consult keep MAP > 65 Albumin for support Avoid hypotension Strict Is&Os Plan discussed with: Patient My Orders My Orders Orders - ISABELLE CASTELLANO MD Procedure Category Date Status Time Hemodialysis Orders ORDERS 10/29/24 Transmitted 18:04 Dietary Evaluation Review Comments: 1. Continue TPN to meet at least 75% estimated needs 2. Continue current POC Expected Outcomes/Goals: FU 2-3 days to meet adequate energy & protein within 7 days of NPO Protein Calorie Malnutrition: Severe (rn) CC Plasma Assessment Blood Product Administration S: [id number] ISABELLE CASTELLANO MD Oct 30, 2024 16:31
[2024-10-30] MEDS: METOPROLOL TARTRATE 1MG/1ML-5ML VIAL IV ONE (16:33)
[2024-10-30] MEDS: MORPHINE SULFATE 4 MG/ML SYR/VIAL IV ONE (16:35)
[2024-10-30] MEDS: ACETAMINOPHEN IV 1000 MG/100ML (10MG/ML) IV ONE ×2 (16:41→20:42)
[2024-10-30] MEDS: TPN PER PHARMACY IV NR (21:27)
--- NOTE | 2024-10-30 21:49 | DVHPN2 ---
Progress Note - Dictate Date Seen: Oct 30, 2024 Medical Necessity Reason Pt with a Central, PICC or Fol: No The following are medically ne: Central Line, Gómez Catheter Reason for gómez catheter: Strict I&O Subjective 48-year-old male postop day number 26 S/P laparotomy and repair of perforated pyloric channel ulcer Postop day 3. S/P tracheostomy currently on ventilator S/P cholecystostomy tube; liver enzymes persistently elevated;Cholecystostomy tube draining bile NG tube output is decreasing, Patient had three melanotic stools today Hemoglobin is dropped down to 8.7 s/p transfusion vital signs Vital Sign Date Time Temp Pulse Resp B/P (MAP) Pulse Ox O2 Delivery O2 Flow Rate FiO2 10/30/24 20:47 138 27 117/63 (81) 100 30 10/30/24 20:00 102.2 102.2 10/30/24 18:00 Mechanical Ventilator+ 10/29/24 18:00 8 Total Intake and Output 10/29/24 10/29/24 10/30/24 15:00 23:00 07:00 Intake Total 704.0 ml 408.0 ml 1141.0 ml Output Total 850 ml 220 ml Balance 704.0 ml -442.0 ml 921.0 ml medications Current Medications Medications Dose Ordered Sig/Wally Route Start Time Stop Time Status Last Admin Dose Admin Fentanyl Citrate 250 ml @ 2.5 mls/hr Q24H IV 10/04/24 09:45 10/30/24 17:20 2.5 MLS/HR Ondansetron HCl 4 mg Q4HP PRN IV 10/04/24 11:45 Morphine Sulfate 2 mg Q4HPRN PRN IV 10/04/24 11:45 Cancel Nitroglycerin 0.4 mg Q5MINP PRN SL 10/04/24 11:45 Morphine Sulfate 2 mg Q30M PRN IV 10/04/24 11:45 Cancel Lorazepam 50 mg/ Sodium Chloride 50 ml @ 1 mls/hr Q24H IV 10/04/24 18:15 Cancel Amino Acids 0 ml @ 0 mls/hr PER PHARMACY IV 10/05/24 14:30 UNV Diagnostic Test (Pha) 1 strip Q6HR 10/05/24 18:00 10/30/24 18:00 1 STRIP Insulin Human Regular FOLLOW SLIDING SCALE Q6HR SC 10/05/24 18:00 10/30/24 00:04 2 UNITS Dextrose 50 ml UD IV 10/05/24 14:45 Meropenem 50 ml @ 17 mls/hr Q12HR IV 10/07/24 10:00 UNV Labetalol HCl 10 mg Q2HPRN PRN IV 10/08/24 09:30 10/30/24 12:35 10 MG Levalbuterol HCl 0.625 mg Q6HR NEB 10/13/24 12:00 10/30/24 18:02 0.625 MG Ipratropium [place] 0.5 mg Q6HR NEB 10/13/24 12:00 10/30/24 18:02 0.5 MG Norepinephrine Bitartrate 32 mg/ Sodium Chloride 250 ml @ 0.938 mls/ hr Q24H IV 10/14/24 10:15 10/30/24 21:15 0.938 MLS/HR Epoetin Roger-epbx 10,000 unit MWF SC 10/19/24 17:00 10/29/24 11:03 10,000 UNIT Bumetanide 1 mg DAILY IV 10/22/24 10:00 10/30/24 11:45 1 MG Morphine Sulfate 2 mg Q4HPRN PRN IV 10/21/24 11:30 10/30/24 14:22 2 MG Morphine Sulfate 2 mg Q30M PRN IV 10/21/24 11:30 Nicardipine/ Sodium Chloride 200 ml @ 50 mls/hr Q4H IV 10/22/24 08:45 10/30/24 15:34 75 MLS/HR Acetaminophen 650 mg Q6HP PRN GT 10/22/24 09:00 Hold 10/30/24 08:30 650 MG Linezolid 300 ml @ 150 mls/hr Q12HR IV 10/24/24 10:00 10/30/24 21:35 150 MLS/HR Piperacillin Sod/ Tazobactam Sod 50 ml @ 12.5 mls/hr Q8H IV 10/24/24 16:00 10/30/24 08:31 12.5 MLS/HR Metoclopramide HCl 5 mg Q6HR IV 10/26/24 12:00 10/28/24 17:47 5 MG Metoprolol Tartrate 1.25 mg Q6HPRN PRN IV 10/27/24 09:45 10/30/24 18:45 1.25 MG Amino Acids 0 ml @ 0 mls/hr PER PHARMACY IV 10/28/24 09:15 Sucralfate 1 gm BID@0600,2200 GT 10/28/24 22:00 10/30/24 21:26 1 GM Pantoprazole Sodium 50 ml @ 0 mls/hr Q0M IV 10/28/24 16:15 Cancel Pantoprazole Sodium 50 ml @ 12.5 mls/hr Q4H IV 10/28/24 17:15 10/30/24 20:12 12.5 MLS/HR Fat Emulsion Intravenous 50 ml/ Sodium Chloride 30 meq/Potassium Chloride 30 meq/ Calcium Gluconate 2.3 meq/Magnesium Sulfate 6 meq/ Multivitamins 10 ml/Amino Acids/ Dextrose 1,038.9462 ml @ 43 mls/hr [id number] IV 10/29/24 22:00 10/30/24 21:59 10/29/24 21:17 43 MLS/HR Fat Emulsion Intravenous 50 ml/ Sodium Chloride 40 meq/Sodium Acetate 10 meq/ Potassium Chloride 40 meq/ Potassium Acetate 10 meq/Calcium Gluconate 4.65 meq/Magnesium Sulfate 10 meq/ Multivitamins 10 ml/Amino Acids/ Dextrose 1,212.5 ml @ 50 mls/hr [id number] IV 10/30/24 22:00 10/31/24 21:59 10/30/24 21:27 50 MLS/HR Lorazepam 1 mg ONCE PRN IV 10/30/24 11:00 Acetaminophen 650 mg Q6HP PRN CO 10/30/24 13:30 10/30/24 14:01 650 MG Midazolam HCl 1 mg Q2HP PRN IV 10/30/24 16:45 objective General Appearance: Alert, awake s/p tracheostomy on ventilator HEENT: Atraumatic, PERRLA;Mild pallor, NG tube draining some coffee-ground in moderate quantities Lungs: Decreased breath sounds at bases) Cardiovascular: Regular rate, Normal S1, Normal S2, Abdomen: soft nontender well-healed midline scar without any drainage, hypoactive bowel sounds laboratory and microbiology Laboratory Tests 10/30/24 03:00 Test 10/30/24 03:00 Range/Units Serum Glucose 157 H 74-106 mg/dL Problems(with codes): (1) Cholecystitis (2) TIA (transient ischemic attack) (3) Troponin level elevated (4) Shock (5) Altered mental status (6) Severe anemia (7) Acute kidney injury (8) Perforated viscus (9) NSTEMI (non-ST elevated myocardial infarction) (10) GI bleed Prognosis Plan Continue IV Protonix drip Patient is on TPN Patient is getting hemodialysis for filled duration only Patient had his chest tube removed today and since then he has been having some fevers requiring cooling blankets Continue IV antibiotics Right upper quadrant ultrasound negative, leukocytosis improving this morning Monitor labs in a.m. Prognosis remains guarded I will follow up Dietary Evaluation Review Comments: 1. Continue TPN to meet at least 75% estimated needs 2. Continue current POC Expected Outcomes/Goals: FU 2-3 days to meet adequate energy & protein within 7 days of NPO Protein Calorie Malnutrition: Severe (rn) Plan discussed with: Other (ICU Nurse) CC Plasma Assessment Blood Product Administration S: [id number] GURJIT NOBLE MD Oct 30, 2024 21:49
[2024-10-31] VITALS (110 sets, daily range): BP systolic 59–228; BP diastolic 31–113; PULSE 96–157; RESP 13–32; TEMP 99–103.4; O2SAT 86–100
[2024-10-31] MEDS: ACETAMINOPHEN IV 1000 MG/100ML (10MG/ML) IV ONE (02:45)
[2024-10-31 03:56] LABS: Hematocrit 27.3 % (41.0-53.0); Hemoglobin 9.1 g/dL (13.5-17.5); Mean Corpuscular Hemoglobin 29.5 pg (28.0-32.0); Mean Corpuscular Volume 88.4 fL (80.0-100.0)
[2024-10-31 04:15] LABS: Anion Gap 14 (5-15); BUN/Creatinine Ratio 12.0 (10.0-20.0); Carbon Dioxide 23 mmol/L (20-31); Magnesium 1.7 mg/dL (1.6-2.6); Potassium 3.6 mmol/L (3.5-5.1); Total Protein 6.3 g/dL (5.7-8.2)
[2024-10-31 04:16] LABS: Alanine Aminotransferase 98 U/L (7-40); Albumin 3.1 g/dL (3.2-4.8); Alkaline Phosphatase 117 U/L (46-116); Bilirubin, Total 3.6 mg/dL (0.2-1.0); Blood Urea Nitrogen 29 mg/dL (9-23); Calcium 8.1 mg/dL (8.7-10.4); Chloride 97 mmol/L (98-107); Glucose 134 mg/dL (74-106); Sodium 134 mmol/L (136-145)
[2024-10-31 04:39] LABS: Total Cells Counted 100.0 (100)
[2024-10-31] MEDS: IBUPROFEN 600 MG TAB PO ONE (06:27)
[2024-10-31 06:33] LABS: Base Excess -1.2 mmol/L (-2.0-3.0)
--- NOTE | 2024-10-31 09:02 | DVHPN2 ---
Progress Note - Dictate Date Seen: Oct 31, 2024 Medical Necessity Reason Pt with a Central, PICC or Fol: No The following are medically ne: Central Line, Gómez Catheter Reason for gómez catheter: Strict I&O Subjective Mr. Perez is a 48 years old right-handed gentleman with a history of hypertension, dyslipidemia, multiple strokes, he was brought to the [facility] on 10/04/2024 with a chief company of recurrent syncope, in the hospital, the patient was found to have perforated viscus, and he went through surgical treatment, he was hospital course has been complicated with sepsis, septic shock, pneumonia, right upper extremity DVT. With appropriate treatment, the patient has improved, but he does not mentally recover as anticipated. I saw him on 08/23/2023 for TIA I have seen and examined the patient, discussed with his nurse. He is on vent, awake, he tracks sometime, but he does not follow verbal commands, I have not see extremity movement T-max: 103.1 Fentanyl 50 mcg/hour, levo 8 mcg/minutes Urinalysis, 08/22/2023: Unremarkable UDS, 08/22/2023: Negative WBC/Hb/PLT'/MCV, 08/22/2023: 10.8/13.1/184/87.4, 10/28/2024: 15/8/487/89.3 10/31/2024: 24.3/9.1/77/88.4 Troponin 1 high-sensitivity, 08/22/2023: 336, 273/300 BUNs/CR, 08/22/2023: 15/1.45 10/31/2024: Two 9/2.42 GFR, 08/22/2023: 59 Liver function test, 10/04/2024: Unremarkable TBI/AST/ALT/AP, 10/04/2024: 0.6/410/335/31, 10/05/2024: 1.3/582/423/39, 10/31/2024: 3.6/54/98/117 TG/CHO L/LDL/HDL, 08/2023: 136/166/111/39 TSH, 08/23/2023: 4.25 DONAL, 08/23/2023: 1. No evidence of intracardiac source of embolus in the study conducted today. 2. Normal valves without significant masses or change vegetations were discernible. 3. No evidence of intra-atrial shunting by bubble study and color Doppler. 4. Mild atherosclerotic plaquing was visualized in the arch of the aorta without evidence of dissection in the visualized part CT head, 10/24/2024: 1. No intracranial hemorrhage or mass effect. 2. [id number] chronic microvascular ischemic changes. 3. Old bilateral basal ganglia lacunar infarcts. 4. Small bilateral mastoid effusions. CT abdomen/pelvis, 10/04/2024: 1. Extensive intra-abdominal free air concerning for perforated viscus. Surgical consultation is recommended. 2. Enteritis is seen in multiple loops of small bowel in the left hemiabdomen. 3. Moderate abdominopelvic ascites. 4. Small right pleural effusion. CTA neck, head, 08/22/2023:1. CTA head demonstrates no evidence of large vessel occlusion, aneurysm, or significant stenosis. 2. CTA neck demonstrates no evidence of carotid or vertebral dissection or significant stenosis. 3. No noncontrast CT head was performed. 4. Additional findings as detailed above MRI head, 08/23/2023: No acute infarct, intracranial hemorrhage, mass effect, or hydrocephalus. Moderate periventricular and deep subcortical white matter T2 hyperintensities which are nonspecific, but most likely related to sequela of chronic microvascular ischemic changes (I have reviewed the MRI films with our in-house radiologist, Dr. Black, the patient has bilateral multiple subacute/chronic infarcts) vital signs Vital Sign Date Time Temp Pulse Resp B/P (MAP) Pulse Ox O2 Delivery O2 Flow Rate FiO2 10/31/24 07:48 111 18 80/47 (58) 97 30 10/31/24 06:27 103.1 10/31/24 06:00 Mechanical Ventilator+ 10/29/24 18:00 8 Total Intake and Output 10/30/24 10/30/24 10/31/24 15:00 23:00 07:00 Intake Total 709.0 ml 625.858 ml 679.052 ml Output Total 930 ml 430 ml Balance 709.0 ml -304.142 ml 249.052 ml medications Current Medications Medications Dose Ordered Sig/Wally Route Start Time Stop Time Status Last Admin Dose Admin Fentanyl Citrate 250 ml @ 2.5 mls/hr Q24H IV 10/04/24 09:45 10/30/24 17:20 2.5 MLS/HR Ondansetron HCl 4 mg Q4HP PRN IV 10/04/24 11:45 Morphine Sulfate 2 mg Q4HPRN PRN IV 10/04/24 11:45 Cancel Nitroglycerin 0.4 mg Q5MINP PRN SL 10/04/24 11:45 Morphine Sulfate 2 mg Q30M PRN IV 10/04/24 11:45 Cancel Lorazepam 50 mg/ Sodium Chloride 50 ml @ 1 mls/hr Q24H IV 10/04/24 18:15 Cancel Amino Acids 0 ml @ 0 mls/hr PER PHARMACY IV 10/05/24 14:30 UNV Diagnostic Test (Pha) 1 strip Q6HR 10/05/24 18:00 10/31/24 05:41 1 STRIP Insulin Human Regular FOLLOW SLIDING SCALE Q6HR SC 10/05/24 18:00 10/30/24 00:04 2 UNITS Dextrose 50 ml UD IV 10/05/24 14:45 Meropenem 50 ml @ 17 mls/hr Q12HR IV 10/07/24 10:00 UNV Labetalol HCl 10 mg Q2HPRN PRN IV 10/08/24 09:30 10/30/24 12:35 10 MG Levalbuterol HCl 0.625 mg Q6HR NEB 10/13/24 12:00 10/31/24 06:32 0.625 MG Ipratropium [place] 0.5 mg Q6HR NEB 10/13/24 12:00 10/31/24 06:32 0.5 MG Norepinephrine Bitartrate 32 mg/ Sodium Chloride 250 ml @ 0.938 mls/ hr Q24H IV 10/14/24 10:15 10/30/24 21:15 0.938 MLS/HR Epoetin Roger-epbx 10,000 unit MWF SC 10/19/24 17:00 10/29/24 11:03 10,000 UNIT Bumetanide 1 mg DAILY IV 10/22/24 10:00 10/30/24 11:45 1 MG Morphine Sulfate 2 mg Q4HPRN PRN IV 10/21/24 11:30 10/30/24 14:22 2 MG Morphine Sulfate 2 mg Q30M PRN IV 10/21/24 11:30 Nicardipine/ Sodium Chloride 200 ml @ 50 mls/hr Q4H IV 10/22/24 08:45 10/30/24 15:34 75 MLS/HR Acetaminophen 650 mg Q6HP PRN GT 10/22/24 09:00 Hold 10/30/24 08:30 650 MG Linezolid 300 ml @ 150 mls/hr Q12HR IV 10/24/24 10:00 10/30/24 21:35 150 MLS/HR Piperacillin Sod/ Tazobactam Sod 50 ml @ 12.5 mls/hr Q8H IV 10/24/24 16:00 10/31/24 00:09 12.5 MLS/HR Metoclopramide HCl 5 mg Q6HR IV 10/26/24 12:00 10/28/24 17:47 5 MG Metoprolol Tartrate 1.25 mg Q6HPRN PRN IV 10/27/24 09:45 10/31/24 05:46 1.25 MG Amino Acids 0 ml @ 0 mls/hr PER PHARMACY IV 10/28/24 09:15 Sucralfate 1 gm BID@0600,2200 GT 10/28/24 22:00 10/31/24 05:45 1 GM Pantoprazole Sodium 50 ml @ 0 mls/hr Q0M IV 10/28/24 16:15 Cancel Pantoprazole Sodium 50 ml @ 12.5 mls/hr Q4H IV 10/28/24 17:15 10/31/24 04:08 12.5 MLS/HR Fat Emulsion Intravenous 50 ml/ Sodium Chloride 40 meq/Sodium Acetate 10 meq/ Potassium Chloride 40 meq/ Potassium Acetate 10 meq/Calcium Gluconate 4.65 meq/Magnesium Sulfate 10 meq/ Multivitamins 10 ml/Amino Acids/ Dextrose 1,212.5 ml @ 50 mls/hr [id number] IV 10/30/24 22:00 10/31/24 21:59 10/30/24 21:27 50 MLS/HR Lorazepam 1 mg ONCE PRN IV 10/30/24 11:00 Acetaminophen 650 mg Q6HP PRN CO 10/30/24 13:30 10/30/24 14:01 650 MG Midazolam HCl 1 mg Q2HP PRN IV 10/30/24 16:45 objective General: the patient is well developed and nourished. No acute distress. MENTAL STATUS: Subjective SPEECH, LANGUAGE, HIGHER CORTICAL FUNCTION: He does not vocalize/status post tracheostomy. CRANIAL NERVES:Intact visual ansari to confrontation (visual thread). Pupils are equal, round and reactive. EOMs full and conjugate. Mandibular strength intact. Facial muscles symmetrical and strength intact. SENSATION: Sensation to touch and pinprick is unremarkable MOTOR: Normal muscle bulk. No fasciculations. No abnormal movements or posturing. No spontaneous extremity movement REFLEXES: Deep tendon reflexes are increased bilaterally, clonic in the left knee. No pathological reflexes. CEREBELLAR/COORDINATION: Deferred GAIT/STATION: deferred laboratory and microbiology Laboratory Tests 10/31/24 03:25 Test 10/31/24 03:25 Range/Units Serum Glucose 134 H 74-106 mg/dL Problem List Altered mental status Metabolic encephalopathy secondary to sepsis, septic shock, pneumonia Hypoxic encephalopathy Viscus perforation status post surgical repair GI bleeding Anemia Sepsis, septic shock Respiratory failure S/P tracheostomy Multiple strokes Secondary to history methamphetamine, cocaine, alcohol use History of alcohol abuse History of cocaine, methamphetamine abuse Hyperreflexia secondary to multiple strokes Assessment/Plan Monitoring Supportive treatment ICU care Stabilize vitals Respiratory support/vent management Follow-up labs MRI head IV antibiotics Resume Aspirin 81 mg daily later Quit tobacco smoking No more alcohol, street drug abuse Stroke risk factors discussed More recommended per clinical course This medical document was created using an electronic medical record system with Pivotstream dictation system. Although this document has been carefully reviewed, there may still be some phonetic and typographical errors. These areas are purely typographical due to imperfections of the software programs, and do not reflect any compromise in the patient's medical care. Prognosis guarded Dietary Evaluation Review Comments: 1. Continue TPN to meet at least 75% estimated needs 2. Continue current POC Expected Outcomes/Goals: FU 2-3 days to meet adequate energy & protein within 7 days of NPO Protein Calorie Malnutrition: Severe (rn) Plan discussed with: Other Critical Care Time(min): 35 CC Plasma Assessment Blood Product Administration S: [id number] LEANDRO BLACK MD Oct 31, 2024 09:02
--- NOTE | 2024-10-31 10:10 | DVHPN2 ---
Progress Note Date Seen: Oct 31, 2024 Resident Creating Document: KWASI MILLAN Medical Necessity Reason Pt with a Central, PICC or Fol: No The following are medically ne: Central Line, Gómez Catheter Reason for gómez catheter: Strict I&O Subjective Review of Systems Patient is 49 years old male with a past medical history of hypertension, hyperlipidemia, CVA in August 2023 with no deficit, memory loss, left knee surgery. To the ED with a syncope for 1 week. Per , patient has been complaining of some constipation for the past several days. On admission patient was found to be severely hypotensive and hyponatremic and severely anemic as well. He has since received multiple units of PRBC and was intubated. CT of the abdomen and pelvis showed perforated viscus and surgery was consulted. On admission patient had leukocytosis with WBC 16.8, hemoglobin was 4.3, hypokalemia with potassium 3.0, creatinine 4.14, BUN 55, On 10/04/2024 patient had-Expiratory laparotomy with closure of perforated pyloric ulcer with omental patch Patient is also status post cholecystostomy due to cholecystitis Patient status post tracheostomy Patient is seen today for clinical evaluation. Labs and chart reviewed. Patient had fever overnight. Leukocytosis trending up. Patient developed thrombocytopenia, Ordered blood culture, urine culture, respiratory culture. Patient was seen by Nephrology, Neurology and Gastroenterology yesterday. Gallbladder ultrasound yesterday on 10/30/2024 revealed-No sonographic evidence of gallstones or acute cholecystitis. Discontinued Zosyn and linezolid, ordered meropenem and vancomycin as per pharmacy protocol. Order for PICC line, Objective vital signs Vital Sign Date Time Temp Pulse Resp B/P (MAP) Pulse Ox O2 Delivery O2 Flow Rate FiO2 10/31/24 09:46 132/73 10/31/24 07:48 111 18 97 30 10/31/24 06:27 103.1 10/31/24 06:00 Mechanical Ventilator+ 10/29/24 18:00 8 Total Intake and Output 10/30/24 10/30/24 10/31/24 15:00 23:00 07:00 Intake Total 709.0 ml 625.858 ml 686.552 ml Output Total 930 ml 430 ml Balance 709.0 ml -304.142 ml 256.552 ml medications Current Medications Medications Dose Ordered Sig/Wally Route Start Time Stop Time Status Last Admin Dose Admin Fentanyl Citrate 250 ml @ 2.5 mls/hr Q24H IV 10/04/24 09:45 10/30/24 17:20 2.5 MLS/HR Ondansetron HCl 4 mg Q4HP PRN IV 10/04/24 11:45 Morphine Sulfate 2 mg Q4HPRN PRN IV 10/04/24 11:45 Cancel Nitroglycerin 0.4 mg Q5MINP PRN SL 10/04/24 11:45 Morphine Sulfate 2 mg Q30M PRN IV 10/04/24 11:45 Cancel Lorazepam 50 mg/ Sodium Chloride 50 ml @ 1 mls/hr Q24H IV 10/04/24 18:15 Cancel Amino Acids 0 ml @ 0 mls/hr PER PHARMACY IV 10/05/24 14:30 UNV Diagnostic Test (Pha) 1 strip Q6HR 10/05/24 18:00 10/31/24 05:41 1 STRIP Insulin Human Regular FOLLOW SLIDING SCALE Q6HR SC 10/05/24 18:00 10/30/24 00:04 2 UNITS Dextrose 50 ml UD IV 10/05/24 14:45 Meropenem 50 ml @ 17 mls/hr Q12HR IV 10/07/24 10:00 UNV Labetalol HCl 10 mg Q2HPRN PRN IV 10/08/24 09:30 10/30/24 12:35 10 MG Levalbuterol HCl 0.625 mg Q6HR NEB 10/13/24 12:00 10/31/24 06:32 0.625 MG Ipratropium [place] 0.5 mg Q6HR NEB 10/13/24 12:00 10/31/24 06:32 0.5 MG Norepinephrine Bitartrate 32 mg/ Sodium Chloride 250 ml @ 0.938 mls/ hr Q24H IV 10/14/24 10:15 10/30/24 21:15 0.938 MLS/HR Bumetanide 1 mg DAILY IV 10/22/24 10:00 10/31/24 09:46 1 MG Morphine Sulfate 2 mg Q4HPRN PRN IV 10/21/24 11:30 10/30/24 14:22 2 MG Morphine Sulfate 2 mg Q30M PRN IV 10/21/24 11:30 Nicardipine/ Sodium Chloride 200 ml @ 50 mls/hr Q4H IV 10/22/24 08:45 10/30/24 15:34 75 MLS/HR Acetaminophen 650 mg Q6HP PRN GT 10/22/24 09:00 Hold 10/30/24 08:30 650 MG Linezolid 300 ml @ 150 mls/hr Q12HR IV 10/24/24 10:00 10/31/24 09:46 150 MLS/HR Piperacillin Sod/ Tazobactam Sod 50 ml @ 12.5 mls/hr Q8H IV 10/24/24 16:00 10/31/24 09:28 12.5 MLS/HR Metoclopramide HCl 5 mg Q6HR IV 10/26/24 12:00 10/28/24 17:47 5 MG Metoprolol Tartrate 1.25 mg Q6HPRN PRN IV 10/27/24 09:45 10/31/24 05:46 1.25 MG Amino Acids 0 ml @ 0 mls/hr PER PHARMACY IV 10/28/24 09:15 Sucralfate 1 gm BID@0600,2200 GT 10/28/24 22:00 10/31/24 05:45 1 GM Pantoprazole Sodium 50 ml @ 0 mls/hr Q0M IV 10/28/24 16:15 Cancel Pantoprazole Sodium 50 ml @ 12.5 mls/hr Q4H IV 10/28/24 17:15 10/31/24 09:29 12.5 MLS/HR Fat Emulsion Intravenous 50 ml/ Sodium Chloride 40 meq/Sodium Acetate 10 meq/ Potassium Chloride 40 meq/ Potassium Acetate 10 meq/Calcium Gluconate 4.65 meq/Magnesium Sulfate 10 meq/ Multivitamins 10 ml/Amino Acids/ Dextrose 1,212.5 ml @ 50 mls/hr [id number] IV 10/30/24 22:00 10/31/24 21:59 10/30/24 21:27 50 MLS/HR Lorazepam 1 mg ONCE PRN IV 10/30/24 11:00 Acetaminophen 650 mg Q6HP PRN RI 10/30/24 13:30 10/30/24 14:01 650 MG Midazolam HCl 1 mg Q2HP PRN IV 10/30/24 16:45 Epoetin Roger-epbx 10,000 unit MWF@2100 [place] 10/31/24 21:00 laboratory and microbiology Laboratory Tests 10/31/24 03:25 Test 10/31/24 03:25 Range/Units Serum Glucose 134 H 74-106 mg/dL Microbiology Date/Time Source Procedure Growth Status 10/23/24 09:50 Voided Urine Urine Culture - Final Complete 10/23/24 09:50 Blood Blood Culture - Final NO GROWTH AFTER 5 DAYS OF INCUBATION. Complete 10/18/24 09:21 Pleural Fluid Gram Stain - Final Complete 10/18/24 09:21 Pleural Fluid Body Fluid Culture - Final Complete 10/16/24 12:05 Bronchial Washings Gram Stain - Final Complete 10/16/24 12:05 Bronchial Washings Respiratory Culture - Final Complete 10/04/24 17:10 Nose MRSA Screen - Final Complete Problem List/Assessment/Plan Problem List/Assessment/Plan Assessment/Plan Impression Acute hypoxemic respiratory failure S/p tracheostomy Perforated viscus Septic shock Smoker Patient seen and examined in ICU Events Patient had fever overnight Leukocytosis trending up, thrombocytopenia Patient was seen by Neurology/transmission repairer/oil separator On 10/30/2024 Ultrasound of the gallbladder negative for acute cholecystitis Patient was on vent overnight due to tachypnea as per nursing staff Plan Monitor CBC, monitor signs symptom of bleeding detailed thrombocytopenia Ordered PICC line Ordered blood culture, urine culture, respiratory culture Discontinue Zosyn and linezolid, ordered meropenem and vancomycin as per Dr. Juan recommended Vent support as needed Titrate to maintain sats 90% or above Trach care per RT protocols Recommended for trach collar as tolerated Continue antibiotics F/u cultures Bronchodilators Monitor renal function Monitor electrolytes Supplement as needed HD per nephrology Nutritional support Tube feedings DVT prophylaxis Critical care time 35 minutes Goals of care, Code status ; discussed with >15 minutes PUD prophylaxis: DVT prophylaxis: Plan discussed with Dr. Sloan , nursing staff, Total time spent on patient evaluation, chart review, assessment and plan, discussion discussion >35 minutes Plan discussed with: Other (RN) My Orders My Orders Orders - KWASI MILLAN RESIDENT Procedure Category Date Status Time Communication Order ORDERS 10/30/24 Transmitted 13:11 Chest Xray 1 View XY 10/31/24 Logged 09:34 Urine Bacterial HOLA 10/31/24 Logged Culture 09:34 Respiratory Culture HOLA 10/31/24 Logged W/ Gs 09:34 Blood Culture HOLA 10/31/24 Logged 09:34 Dietary Evaluation Review Comments: 1. Continue TPN to meet at least 75% estimated needs 2. Continue current POC Expected Outcomes/Goals: FU 2-3 days to meet adequate energy & protein within 7 days of NPO Protein Calorie Malnutrition: Severe (rn) CC Plasma Assessment Blood Product Administration S: [id number] Date of Service: Oct 31, 2024 Billing Provider: VALENTE DEE MD Common Visit Codes: NOT BILLABLE KWASI MILLAN RESIDENT Oct 31, 2024 10:10 VALENTE DEE MD Nov 01, 2024 12:55
--- NOTE | 2024-10-31 10:16 | DVHPN2 ---
Subjective Patient continues to be encephalopathic. Following some commands Reviewed: Care Plan, H&P, Labs, Medications, Previous Orders, Radiology, Other (Consultants) Changes from previous H/P or p: No Changes General: Per HPI Objective Vitals Vital Signs Date Time Temp Pulse Resp B/P (MAP) Pulse Ox O2 Delivery O2 Flow Rate FiO2 10/31/24 09:46 132/73 10/31/24 07:48 111 18 97 30 10/31/24 06:27 103.1 10/31/24 06:00 Mechanical Ventilator+ 10/29/24 18:00 8 Intake/Output Intake and Output 10/31/24 07:00 Intake Total 2021.410 ml Output Total 1360 ml Balance 661.410 ml Intake Oral 120 ml IV Total 1901.410 ml Output Urine Total 1100 ml Gastric Drainage Total 170 ml Drainage Total 90 ml # Bowel Movements 5 General Appearance: Alert, Cooperative, mild distress, Other (Intubated and sedated) HEENT: Atraumatic, PERRLA Lungs: Other (Mechanical ventilation. Decreased breath sounds at bases) Cardiovascular: Normal S1, Normal S2, Other (Sinus tachycardia) Abdomen: Other (NG with persistent burgundy secretion) Neuro: Other (Unable to assess) Skin: Dry, Intact, Wounds (Abdominal wound dry and intact), Other Psych/Mental Status: Other Medications Current Medications Medications Dose Ordered Sig/Wally Route Start Time Stop Time Status Last Admin Dose Admin Fentanyl Citrate 250 ml @ 2.5 mls/hr Q24H IV 10/04/24 09:45 10/30/24 17:20 2.5 MLS/HR Ondansetron HCl 4 mg Q4HP PRN IV 10/04/24 11:45 Morphine Sulfate 2 mg Q4HPRN PRN IV 10/04/24 11:45 Cancel Nitroglycerin 0.4 mg Q5MINP PRN SL 10/04/24 11:45 Morphine Sulfate 2 mg Q30M PRN IV 10/04/24 11:45 Cancel Lorazepam 50 mg/ Sodium Chloride 50 ml @ 1 mls/hr Q24H IV 10/04/24 18:15 Cancel Amino Acids 0 ml @ 0 mls/hr PER PHARMACY IV 10/05/24 14:30 UNV Diagnostic Test (Pha) 1 strip Q6HR 10/05/24 18:00 10/31/24 05:41 1 STRIP Insulin Human Regular FOLLOW SLIDING SCALE Q6HR SC 10/05/24 18:00 10/30/24 00:04 2 UNITS Dextrose 50 ml UD IV 10/05/24 14:45 Meropenem 50 ml @ 17 mls/hr Q12HR IV 10/07/24 10:00 UNV Labetalol HCl 10 mg Q2HPRN PRN IV 10/08/24 09:30 10/30/24 12:35 10 MG Levalbuterol HCl 0.625 mg Q6HR NEB 10/13/24 12:00 10/31/24 06:32 0.625 MG Ipratropium [place] 0.5 mg Q6HR NEB 10/13/24 12:00 10/31/24 06:32 0.5 MG Norepinephrine Bitartrate 32 mg/ Sodium Chloride 250 ml @ 0.938 mls/ hr Q24H IV 10/14/24 10:15 10/30/24 21:15 0.938 MLS/HR Bumetanide 1 mg DAILY IV 10/22/24 10:00 10/31/24 09:46 1 MG Morphine Sulfate 2 mg Q4HPRN PRN IV 10/21/24 11:30 10/30/24 14:22 2 MG Morphine Sulfate 2 mg Q30M PRN IV 10/21/24 11:30 Nicardipine/ Sodium Chloride 200 ml @ 50 mls/hr Q4H IV 10/22/24 08:45 10/30/24 15:34 75 MLS/HR Acetaminophen 650 mg Q6HP PRN GT 10/22/24 09:00 Hold 10/30/24 08:30 650 MG Linezolid 300 ml @ 150 mls/hr Q12HR IV 10/24/24 10:00 10/31/24 09:46 150 MLS/HR Piperacillin Sod/ Tazobactam Sod 50 ml @ 12.5 mls/hr Q8H IV 10/24/24 16:00 10/31/24 09:28 12.5 MLS/HR Metoclopramide HCl 5 mg Q6HR IV 10/26/24 12:00 10/28/24 17:47 5 MG Metoprolol Tartrate 1.25 mg Q6HPRN PRN IV 10/27/24 09:45 10/31/24 05:46 1.25 MG Amino Acids 0 ml @ 0 mls/hr PER PHARMACY IV 10/28/24 09:15 Sucralfate 1 gm BID@0600,2200 GT 10/28/24 22:00 10/31/24 05:45 1 GM Pantoprazole Sodium 50 ml @ 0 mls/hr Q0M IV 10/28/24 16:15 Cancel Pantoprazole Sodium 50 ml @ 12.5 mls/hr Q4H IV 10/28/24 17:15 10/31/24 09:29 12.5 MLS/HR Fat Emulsion Intravenous 50 ml/ Sodium Chloride 40 meq/Sodium Acetate 10 meq/ Potassium Chloride 40 meq/ Potassium Acetate 10 meq/Calcium Gluconate 4.65 meq/Magnesium Sulfate 10 meq/ Multivitamins 10 ml/Amino Acids/ Dextrose 1,212.5 ml @ 50 mls/hr [id number] IV 10/30/24 22:00 10/31/24 21:59 10/30/24 21:27 50 MLS/HR Lorazepam 1 mg ONCE PRN IV 10/30/24 11:00 Acetaminophen 650 mg Q6HP PRN [place] 10/30/24 13:30 10/30/24 14:01 650 MG Midazolam HCl 1 mg Q2HP PRN IV 10/30/24 16:45 Epoetin Roger-epbx 10,000 unit MWF@2100 ID 10/31/24 21:00 Laboratory Results Laboratory Tests 10/31/24 03:25 Chemistry Test 10/31/24 03:25 Albumin 3.1 g/dL (3.2-4.8) L Calcium Level 8.1 mg/dL (8.7-10.4) L Magnesium Level 1.7 mg/dL (1.6-2.6) Phosphorus Level 1.5 mg/dL (2.4-5.1) L Total Protein 6.3 g/dL (5.7-8.2) LFT Test 10/31/24 03:25 Alanine Aminotransferase (ALT) 98 U/L (7-40) H Alkaline Phosphatase 117 U/L (46-116) H Aspartate Amino Transferase (AST) 54 U/L (0-34) H Total Bilirubin 3.6 mg/dL (0.2-1.0) H Urinalysis Test 10/05/24 15:05 10/11/24 18:00 10/26/24 20:33 Urine Mucus Few (None Seen) Urine Total Protein 85.0 mg/dL (1-14) H Urine Creatinine 48.05 mg/dL (30.0-125.0) Urine Sodium 76 mmol/L (40-220) Urine Color Light-yellow (Yellow) Urine Clarity Clear (Clear) Urine pH 7.0 (5.0-9.0) Urine Specific [place] 1.014 (1.001-1.035) Urine Protein 1+ (Negative) H Urine Ketones Negative (Negative) Urine Blood 1+ /uL (Negative) H Urine Nitrite Negative (Negative) Urine Bilirubin Negative (Negative) Urine Urobilinogen Normal mg/dL (Negative) Urine Leukocyte Esterase Negative /uL (Negative) Urine RBC 1 /hpf (0 - 3) Urine Microscopic WBC 3 /HPF (0-3) Urine Squamous Epithelial Cells None seen /hpf (<5) Urine Bacteria Few /hpf (None Seen) H Urine Glucose Normal mg/dL (Normal) Blood Gas Results Test 10/31/24 06:23 Arterial Blood pH 7.496 (7.350-7.450) FiO2 % 30.0 Microbiology Microbiology Date/Time Source Procedure Growth Status 10/23/24 09:50 Voided Urine Urine Culture - Final Complete 10/23/24 09:50 Blood Blood Culture - Final NO GROWTH AFTER 5 DAYS OF INCUBATION. Complete 10/18/24 09:21 Pleural Fluid Gram Stain - Final Complete 10/18/24 09:21 Pleural Fluid Body Fluid Culture - Final Complete 10/16/24 12:05 Bronchial Washings Gram Stain - Final Complete 10/16/24 12:05 Bronchial Washings Respiratory Culture - Final Complete 10/04/24 17:10 Nose MRSA Screen - Final Complete Labs and/or images reviewed: Labs reviewed by me, Image(s) reviewed by me Assessment/Plan Assessment/Plan Impression: -severe septic shock -pneumoperitoneum secondary to perforated gastric ulcer -acute kidney injury, hemodynamically mediated, probable VMN -acute hypoxic respiratory failure -shock liver -nicotine dependence -history of CVA -right upper extremity DVT -multifocal pneumonia, probable Gram-positive/Gram-negative etiology -anemia secondary to nutrition, renal failure -bilateral pleural effusions -small left pneumothorax -Failure of ventilator weaning, status post tracheostomy Plan: Events: Patient placed on CPAP today. Tolerating. Questionable tachycardia, temperature, secondary to possible narcotic withdrawal. Patient placed back on fentanyl drip at 25 micrograms/hour with improvement in his clinical status. H and H holding. Now thrombocytopenic. No signs of bleeding from NG tube. Advanced to tube feeding if okay with GI -continue TPN -GI consultation: Recommendations reviewed. Patient placed on Protonix drip -further recommendations per surgical consultation -antibiotic therapy: Zosyn, Zyvox -nephrology consultation: Recommendations reviewed. Patient received HD yesterday -Continue to hold anticoagulation -repeat labs, chest x-ray, ABG in a.m. -Discussed plan of care with . All questions answered. Critical care time spent with patient discussing and formulating plan of care: 90 minutes. This does not include time spent performing procedures. This medical document was created using an electronic medical record system with [employer] dictation system. Although this document has been carefully reviewed, there may still be some phonetic and typographical errors. These areas are purely typographical due to imperfections of the software programs, and do not reflect any compromise in the patient's medical care. Plan discussed with: Patient, Other (RN) My Orders Orders - CHEYENNE PIKE NP Procedure Category Date Status Time Acetaminophen PHA 10/30/24 In Process Suppository (Tylenol 13:30 Midazolam Injection PHA 10/30/24 In Process (Versed Injection) 16:45 Abg W/ Co-Ox RT 10/31/24 Logged 06:00 Date of Service: Oct 31, 2024 Billing Provider: CHEYENNE PIKE NP Common Visit Codes: 33209-[id number] CARE 30-74 MIN CHEYENNE PIKE NP Oct 31, 2024 10:16
--- NOTE | 2024-10-31 11:30 | DVH ---
EXAM: XY CHEST XRAY 1 VIEW Indication: pain; PNA Technique: Single frontal view of the chest was obtained Comparison: XY CHEST PORTABLE on DOS: 10/30/24, XY CHEST PORTABLE on DOS: 10/30/24, XY CHEST PORTABLE o n DOS: 10/29/24, XY CHEST PORTABLE on DOS: 10/28/24, XY CHEST XRAY 1 VIEW on DOS: 10/27/24 FINDINGS: Lines and Tubes: Tracheostomy tube is visualized. Enteric tube in appropriate position. Left interna l jugular central venous catheter tip projects over the superior vena cava. Lungs: Pulmonary vascular congestion. Pleura: No effusion. No pneumothorax. Cardiomediastinal contours: Unremarkable Bones: No acute osseous abnormality. IMPRESSION: Pulmonary vascular congestion. Lines and tubes in appropriate position
[2024-10-31] MEDS: SODIUM PHOSPHATES 20 MEQ in SODIUM CHL 0.9% 100 ML IV ONE (11:54)
--- NOTE | 2024-10-31 12:26 | DVHPN2 ---
Progress Note Date Seen: Oct 31, 2024 Medical Necessity Reason Pt with a Central, PICC or Fol: No The following are medically ne: Central Line, Gómez Catheter Reason for gómez catheter: Strict I&O Objective vital signs Vital Sign Date Time Temp Pulse Resp B/P (MAP) Pulse Ox O2 Delivery O2 Flow Rate FiO2 10/31/24 12:17 146 199/91 10/31/24 12:04 27 97 30 10/31/24 10:00 Mechanical Ventilator+ 10/31/24 06:27 103.1 10/29/24 18:00 8 Total Intake and Output 10/30/24 10/30/24 10/31/24 15:00 23:00 07:00 Intake Total 709.0 ml 625.858 ml 736.552 ml Output Total 930 ml 430 ml Balance 709.0 ml -304.142 ml 306.552 ml medications Current Medications Medications Dose Ordered Sig/Wally Route Start Time Stop Time Status Last Admin Dose Admin Fentanyl Citrate 250 ml @ 2.5 mls/hr Q24H IV 10/04/24 09:45 10/30/24 17:20 2.5 MLS/HR Ondansetron HCl 4 mg Q4HP PRN IV 10/04/24 11:45 Morphine Sulfate 2 mg Q4HPRN PRN IV 10/04/24 11:45 Cancel Nitroglycerin 0.4 mg Q5MINP PRN SL 10/04/24 11:45 Morphine Sulfate 2 mg Q30M PRN IV 10/04/24 11:45 Cancel Lorazepam 50 mg/ Sodium Chloride 50 ml @ 1 mls/hr Q24H IV 10/04/24 18:15 Cancel Amino Acids 0 ml @ 0 mls/hr PER PHARMACY IV 10/05/24 14:30 UNV Diagnostic Test (Pha) 1 strip Q6HR 10/05/24 18:00 10/31/24 12:21 1 STRIP Insulin Human Regular FOLLOW SLIDING SCALE Q6HR SC 10/05/24 18:00 10/30/24 00:04 2 UNITS Dextrose 50 ml UD IV 10/05/24 14:45 Meropenem 50 ml @ 17 mls/hr Q12HR IV 10/07/24 10:00 UNV Labetalol HCl 10 mg Q2HPRN PRN IV 10/08/24 09:30 10/30/24 12:35 10 MG Levalbuterol HCl 0.625 mg Q6HR NEB 10/13/24 12:00 10/31/24 12:04 0.625 MG Ipratropium [place] 0.5 mg Q6HR NEB 10/13/24 12:00 10/31/24 12:03 0.5 MG Norepinephrine Bitartrate 32 mg/ Sodium Chloride 250 ml @ 0.938 mls/ hr Q24H IV 10/14/24 10:15 Hold 10/30/24 21:15 0.938 MLS/HR Bumetanide 1 mg DAILY IV 10/22/24 10:00 10/31/24 09:46 1 MG Morphine Sulfate 2 mg Q4HPRN PRN IV 10/21/24 11:30 10/30/24 14:22 2 MG Nicardipine/ Sodium Chloride 200 ml @ 50 mls/hr Q4H IV 10/22/24 08:45 10/30/24 15:34 75 MLS/HR Acetaminophen 650 mg Q6HP PRN GT 10/22/24 09:00 Hold 10/30/24 08:30 650 MG Linezolid 300 ml @ 150 mls/hr Q12HR IV 10/24/24 10:00 10/31/24 09:46 150 MLS/HR Piperacillin Sod/ Tazobactam Sod 50 ml @ 12.5 mls/hr Q8H IV 10/24/24 16:00 10/31/24 09:28 12.5 MLS/HR Metoclopramide HCl 5 mg Q6HR IV 10/26/24 12:00 10/31/24 12:21 5 MG Metoprolol Tartrate 1.25 mg Q6HPRN PRN IV 10/27/24 09:45 10/31/24 12:17 1.25 MG Amino Acids 0 ml @ 0 mls/hr PER PHARMACY IV 10/28/24 09:15 Sucralfate 1 gm BID@0600,2200 GT 10/28/24 22:00 10/31/24 05:45 1 GM Pantoprazole Sodium 50 ml @ 0 mls/hr Q0M IV 10/28/24 16:15 Cancel Pantoprazole Sodium 50 ml @ 12.5 mls/hr Q4H IV 10/28/24 17:15 6/13/25 09:29 12.5 MLS/HR Fat Emulsion Intravenous 50 ml/ Sodium Chloride 40 meq/Sodium Acetate 10 meq/ Potassium Chloride 40 meq/ Potassium Acetate 10 meq/Calcium Gluconate 4.65 meq/Magnesium Sulfate 10 meq/ Multivitamins 10 ml/Amino Acids/ Dextrose 1,212.5 ml @ 50 mls/hr [id number] IV 10/30/24 22:00 10/31/24 21:59 10/30/24 21:27 50 MLS/HR Lorazepam 1 mg ONCE PRN IV 10/30/24 11:00 Acetaminophen 650 mg Q6HP PRN [place] 10/30/24 13:30 10/30/24 14:01 650 MG Midazolam HCl 1 mg Q2HP PRN IV 10/30/24 16:45 Epoetin Roger-epbx 10,000 unit MWF@2100 SC 10/31/24 21:00 Fat Emulsion Intravenous 100 ml/Sodium Chloride 60 meq/ Sodium Phosphate 22 meq/Potassium Chloride 30 meq/ Calcium Gluconate 4.65 meq/ Magnesium Sulfate 16 meq/ Multivitamins 10 ml/Amino Acids/ Dextrose 1,459.5 ml @ 61 mls/hr [id number] IV 10/31/24 22:00 11/01/24 21:59 Examination: GENERAL:Normal, GENERAL:Abnormal, ABDOMEN:Abnormal laboratory and microbiology Laboratory Tests 10/31/24 03:25 Test 10/31/24 03:25 Range/Units Serum Glucose 134 H 74-106 mg/dL Microbiology Date/Time Source Procedure Growth Status 10/23/24 09:50 Voided Urine Urine Culture - Final Complete 10/23/24 09:50 Blood Blood Culture - Final NO GROWTH AFTER 5 DAYS OF INCUBATION. Complete 10/18/24 09:21 Pleural Fluid Gram Stain - Final Complete 10/18/24 09:21 Pleural Fluid Body Fluid Culture - Final Complete 10/16/24 12:05 Bronchial Washings Gram Stain - Final Complete 10/16/24 12:05 Bronchial Washings Respiratory Culture - Final Complete 10/04/24 17:10 Nose MRSA Screen - Final Complete Problem List/Assessment/Plan Problem List/Assessment/Plan 48-year-old male presents to the hospital abdominal pain patient was diagnosed with acute gastric perforation status post surgery . Acute kidney injury hemodynamically mediated requiring acute inpatient hemodialysis Acute respiratory failure -> now trach to vent Perforated gastric ulcer status post exploratory laparoscopic surgery Hypokalemia Anemia due to chronic disease/inflammation tachycardia HD on hold today Epogen 3x a week GI consult keep MAP > 65 Albumin for support Avoid hypotension Strict Is&Os Plan discussed with: Patient My Orders My Orders Orders - ISABELLE CASTELLANO MD Procedure Category Date Status Time Hemodialysis Orders ORDERS 10/30/24 Transmitted 15:45 Epoetin Roger-Epbx PHA 10/31/24 In Process (Retacrit) 21:00 Dietary Evaluation Review Comments: 1. Continue TPN to meet at least 75% estimated needs 2. Continue current POC Expected Outcomes/Goals: FU 2-3 days to meet adequate energy & protein within 7 days of NPO Protein Calorie Malnutrition: Severe (rn) CC Plasma Assessment Blood Product Administration S: [id number] ISABELLE CASTELLANO MD Oct 31, 2024 12:26
[2024-10-31] MEDS ORDERED: VANCOMYCIN PER PHARMACY 0 MG IV SCH (12:45)
[2024-10-31] MEDS: ACETAMINOPHEN 650 MG RECT SUPP PR ONE (13:00)
[2024-10-31] MEDS: VANCOMYCIN 1GM/200ML PM 200 ML IV ONE (13:15)
[2024-10-31 14:17] LABS: INR 1.41 (0.9-1.15); Partial Thromboplastin Time 31.6 SEC (24.5-34.5); Prothrombin Time 14.4 sec (9.3-11.8)
--- NOTE | 2024-10-31 16:33 | DVHPN2 ---
Progress Note - Dictate Date Seen: Oct 31, 2024 Medical Necessity Reason Pt with a Central, PICC or Fol: No The following are medically ne: Central Line, Gómez Catheter Reason for gómez catheter: Strict I&O Subjective 48-year-old male postop day number 27 S/P laparotomy and repair of perforated pyloric channel ulcer Postop day 4. S/P tracheostomy currently on ventilator S/P cholecystostomy tube; liver enzymes persistently elevated and trending upwards;Cholecystostomy tube draining bile NG tube output is decreasing, no GI bleed reported No bowel movement or melena reported today, hemoglobin stable at 9.1 Patient has worsening leukocytosis and is spiking fevers vital signs Vital Sign Date Time Temp Pulse Resp B/P (MAP) Pulse Ox O2 Delivery O2 Flow Rate FiO2 10/31/24 15:51 121 23 99/55 (70) 96 30 10/31/24 13:00 103.3 10/31/24 10:00 Mechanical Ventilator+ 10/29/24 18:00 8 Total Intake and Output 10/30/24 10/30/24 10/31/24 15:00 23:00 07:00 Intake Total 709.0 ml 625.858 ml 736.552 ml Output Total 930 ml 430 ml Balance 709.0 ml -304.142 ml 306.552 ml medications Current Medications Medications Dose Ordered Sig/Wally Route Start Time Stop Time Status Last Admin Dose Admin Fentanyl Citrate 250 ml @ 2.5 mls/hr Q24H IV 10/04/24 09:45 10/30/24 17:20 2.5 MLS/HR Ondansetron HCl 4 mg Q4HP PRN IV 10/04/24 11:45 Morphine Sulfate 2 mg Q4HPRN PRN IV 10/04/24 11:45 Cancel Nitroglycerin 0.4 mg Q5MINP PRN SL 10/04/24 11:45 Morphine Sulfate 2 mg Q30M PRN IV 10/04/24 11:45 Cancel Lorazepam 50 mg/ Sodium Chloride 50 ml @ 1 mls/hr Q24H IV 10/04/24 18:15 Cancel Amino Acids 0 ml @ 0 mls/hr PER PHARMACY IV 10/05/24 14:30 UNV Diagnostic Test (Pha) 1 strip Q6HR 10/05/24 18:00 10/31/24 12:21 1 STRIP Insulin Human Regular FOLLOW SLIDING SCALE Q6HR SC 10/05/24 18:00 10/30/24 00:04 2 UNITS Dextrose 50 ml UD IV 10/05/24 14:45 Meropenem 50 ml @ 17 mls/hr Q12HR IV 10/07/24 10:00 UNV Labetalol HCl 10 mg Q2HPRN PRN IV 10/08/24 09:30 10/31/24 12:26 10 MG Levalbuterol HCl 0.625 mg Q6HR NEB 10/13/24 12:00 10/31/24 12:04 0.625 MG Ipratropium [place] 0.5 mg Q6HR NEB 10/13/24 12:00 10/31/24 12:03 0.5 MG Norepinephrine Bitartrate 32 mg/ Sodium Chloride 250 ml @ 0.938 mls/ hr Q24H IV 10/14/24 10:15 Hold 10/30/24 21:15 0.938 MLS/HR Bumetanide 1 mg DAILY IV 10/22/24 10:00 10/31/24 09:46 1 MG Morphine Sulfate 2 mg Q4HPRN PRN IV 10/21/24 11:30 10/30/24 14:22 2 MG Nicardipine/ Sodium Chloride 200 ml @ 50 mls/hr Q4H IV 10/22/24 08:45 10/30/24 15:34 75 MLS/HR Acetaminophen 650 mg Q6HP PRN GT 10/22/24 09:00 10/30/24 08:30 650 MG Metoclopramide HCl 5 mg Q6HR IV 10/26/24 12:00 10/31/24 12:21 5 MG Metoprolol Tartrate 1.25 mg Q6HPRN PRN IV 10/27/24 09:45 10/31/24 12:17 1.25 MG Amino Acids 0 ml @ 0 mls/hr PER PHARMACY IV 10/28/24 09:15 Sucralfate 1 gm BID@0600,2200 GT 10/28/24 22:00 10/31/24 05:45 1 GM Pantoprazole Sodium 50 ml @ 0 mls/hr Q0M IV 10/28/24 16:15 Cancel Pantoprazole Sodium 50 ml @ 12.5 mls/hr Q4H IV 10/28/24 17:15 10/31/24 12:31 12.5 MLS/HR Fat Emulsion Intravenous 50 ml/ Sodium Chloride 40 meq/Sodium Acetate 10 meq/ Potassium Chloride 40 meq/ Potassium Acetate 10 meq/Calcium Gluconate 4.65 meq/Magnesium Sulfate 10 meq/ Multivitamins 10 ml/Amino Acids/ Dextrose 1,212.5 ml @ 50 mls/hr [id number] IV 10/30/24 22:00 10/31/24 21:59 10/30/24 21:27 50 MLS/HR Lorazepam 1 mg ONCE PRN IV 10/30/24 11:00 Midazolam HCl 1 mg Q2HP PRN IV 10/30/24 16:45 Epoetin Roger-epbx 10,000 unit MWF@2100 SC 10/31/24 21:00 Fat Emulsion Intravenous 100 ml/Sodium Chloride 50 meq/ Sodium Phosphate 20 meq/Potassium Chloride 30 meq/ Calcium Gluconate 4.65 meq/ Magnesium Sulfate 16 meq/ Multivitamins 10 ml/Amino Acids/ Dextrose 1,456.5 ml @ 61 mls/hr [id number] IV 10/31/24 22:00 11/01/24 21:59 Meropenem 50 ml @ 17 mls/hr Q12HR IV 10/31/24 22:00 Vancomycin HCl 0 ml @ 0 mls/hr UD IV 10/31/24 12:45 UNV Acetaminophen 650 mg Q6HP PRN [place] 10/31/24 13:30 objective General Appearance: Alert, awake s/p tracheostomy on ventilator HEENT: Atraumatic, PERRLA;Mild pallor, NG tube draining some coffee-ground in moderate quantities Lungs: Decreased breath sounds at bases) Cardiovascular: Regular rate, Normal S1, Normal S2, Abdomen: soft nontender well-healed midline scar without any drainage, hypoactive bowel sounds laboratory and microbiology Laboratory Tests 10/31/24 03:25 Test 10/31/24 03:25 Range/Units Serum Glucose 134 H 74-106 mg/dL Problems(with codes): (1) Cholecystitis (2) TIA (transient ischemic attack) (3) Altered mental status (4) Severe anemia (5) Perforated viscus (6) NSTEMI (non-ST elevated myocardial infarction) (7) GI bleed (8) Septic shock (9) Leukocytosis Prognosis Plan Patient may be started on enteral tube feedings at low rate of 10-20 mL/hour We can resume his Lovenox at a low dose because of history of DVTs Patient's lines and central lines are being addressed to see if any to be replaced I am concerned about the patient's persistent elevation liver enzymes and suspected cholecystitis We will request surgical consult to follow up on the patient to decide an appropriate time for his cholecystectomy as that might be the source of his fevers Get MRI with MRCP Continue IV ppi Protonix 40 mg q.12 hours and taper off the IV Protonix drip Dietary Evaluation Review Comments: 1. Continue TPN to meet at least 75% estimated needs 2. Continue current POC Expected Outcomes/Goals: FU 2-3 days to meet adequate energy & protein within 7 days of NPO Protein Calorie Malnutrition: Severe (rn) Plan discussed with: Other (ICU Nurse and Junito Avina) CC Plasma Assessment Blood Product Administration S: [id number] GURJIT NOBLE MD Oct 31, 2024 16:33
[2024-10-31] MEDS: LIDOCAINE 1% (LOCAL ANESTH.) PF 5ml SDV ID ONE (18:36)
--- NOTE | 2024-10-31 19:10 | DVH ---
Date: 10/31/2024 06:33 PM Examination: XY KUB ABDOMEN SINGLE VIEW History: n Comparison: XY KUB ABDOMEN SINGLE VIEW on DOS: 10/29/24, XY KUB ABDOMEN SINGLE VIEW on DOS: 10/16/24 TECHNIQUE: Frontal views of the abdomen was obtained. FINDINGS: Bowel gas pattern is unremarkable. Enteric tube in the stomach. Nephrostomy tube in place on the right. Right femoral catheter in place. The lung bases are unremarkable. No acute osseous abnormality identified. IMPRESSION: 1. Nonobstructive bowel gas pattern. 2. Nephrostomy tube in place on the right 3. Enteric tube in place in stomach 4. Right femoral catheter in place terminating at the level of the L2-3.
[2024-10-31] MEDS: EPOETIN ALFA-EPBX 10,000 UNIT/1ML VIAL SC SCH (21:07)
[2024-10-31] MEDS: FAT EMULSION IV NR (21:11)
[2024-10-31] MEDS: [UNRECOGNIZED DRUG - OTHER] IV NR (21:11)
[2024-10-31] MEDS: SODIUM PHOSPHATES IV NR (21:11)
[2024-10-31] MEDS: SODIUM CHLORIDE IV NR (21:11)
[2024-10-31] MEDS: MEROPENEM 1GM IVPB 50 ML IV SCH (21:13)
[2024-10-31] MEDS: SODIUM CHLOR 0.9% PF (SALINE LOCK) 10ML VIAL/SYR IV SCH (21:19)
[2024-10-31] MEDS: PANTOPRAZOLE 40 MG/10 ML VIAL INJ IV SCH (21:21)
[2024-11-01] VITALS (104 sets, daily range): BP systolic -15–177; BP diastolic -36–97; PULSE 101–148; RESP 13–48; TEMP 99.1–100.9; O2SAT 88–100
[2024-11-01] MEDS: Nepro With Carb Steady 1 Liter Bottle GT SCH (00:14)
[2024-11-01 04:33] LABS: Hematocrit 25.6 % (41.0-53.0); Hemoglobin 8.5 g/dL (13.5-17.5); Mean Corpuscular Hemoglobin 29.7 pg (28.0-32.0); Mean Corpuscular Volume 88.7 fL (80.0-100.0)
[2024-11-01 04:50] LABS: Alkaline Phosphatase 102 U/L (46-116); Anion Gap 16 (5-15); BUN/Creatinine Ratio 12.9 (10.0-20.0); Calcium 8.9 mg/dL (8.7-10.4); Chloride 99 mmol/L (98-107); Magnesium 1.9 mg/dL (1.6-2.6); Total Protein 6.3 g/dL (5.7-8.2)
[2024-11-01 04:56] LABS: Alanine Aminotransferase 77 U/L (7-40); Albumin 3.0 g/dL (3.2-4.8); Bilirubin, Total 3.3 mg/dL (0.2-1.0); Blood Urea Nitrogen 48 mg/dL (9-23); Carbon Dioxide 20 mmol/L (20-31); Glucose 142 mg/dL (74-106); Potassium 3.2 mmol/L (3.5-5.1); Sodium 135 mmol/L (136-145)
--- NOTE | 2024-11-01 05:33 | DVH ---
CHEST RADIOGRAPH Indication: pna Technique: Single frontal view of the chest was obtained Comparison: XY CHEST XRAY 1 VIEW on DOS: 10/31/24, XY CHEST PORTABLE on DOS: 10/30/24, XY CHEST PORTABL E on DOS: 10/30/24 IMPRESSION: Heart appears stable in size. Tracheostomy tube is present with tip approximately 2 cm from the riana na. Enteric tube tip is beyond the gastroesophageal junction, beyond the inferior level of the exami nation. Life central venous catheter tip in the region of the superior vena cava. Interstitial opacities appear slightly increased predominantly in the right lower lung. No sizable ef fusion or pneumothorax.
[2024-11-01] MEDS: POTASSIUM CHL 20MEQ/100ML 100 ML IV ONE (05:47)
--- NOTE | 2024-11-01 06:07 | DVH ---
Exam: US US GUIDED VASCULAR ACCESS, US US Guided Vascular Access Date: 10/31/2024 05:56 PM Clinical History: PICC line placement Comparison: None Findings: Targeted sonographic evaluation of the arm vein was obtained utilizing grayscale and color Doppler im aging. IMPRESSION: Sonographic assistance for peripherally inserted central line placement. Please refer to procedural r eport for detailed findings.
[2024-11-01 06:10] LABS: Total Cells Counted 100.0 (100)
[2024-11-01 07:50] LABS: Base Excess -6.2 mmol/L (-2.0-3.0)
--- NOTE | 2024-11-01 09:11 | DVHPN2 ---
Subjective Patient continues to be encephalopathic. Following some commands Reviewed: Care Plan, H&P, Labs, Medications, Previous Orders, Radiology, Other (Consultants) Changes from previous H/P or p: No Changes General: Per HPI Objective Vitals Vital Signs Date Time Temp Pulse Resp B/P (MAP) Pulse Ox O2 Delivery O2 Flow Rate FiO2 11/01/24 08:17 145 29 139/83 (101) 100 30 11/01/24 08:00 Mechanical Ventilator+ 11/01/24 04:00 100.2 100.2 Intake/Output Intake and Output 11/01/24 07:00 Intake Total 2053.752 ml Output Total 1800 ml Balance 253.752 ml Intake Oral 170 ml IV Total 1853.752 ml Tube Feeding 30 ml Output Urine Total 1650 ml Gastric Drainage Total 0 ml Drainage Total 150 ml # Bowel Movements 2 General Appearance: Alert, Cooperative, mild distress, Other (Intubated and sedated) HEENT: Atraumatic, PERRLA Lungs: Other (Mechanical ventilation. Decreased breath sounds at bases) Cardiovascular: Normal S1, Normal S2, Other (Sinus tachycardia) Abdomen: Other (NG with bilious drainage now) Neuro: Other (Unable to assess) Skin: Dry, Intact, Wounds (Abdominal wound dry and intact), Other Psych/Mental Status: Other Medications Current Medications Medications Dose Ordered Sig/Wally Route Start Time Stop Time Status Last Admin Dose Admin Fentanyl Citrate 250 ml @ 2.5 mls/hr Q24H IV 10/04/24 09:45 10/31/24 18:03 5 MLS/HR Ondansetron HCl 4 mg Q4HP PRN IV 10/04/24 11:45 Morphine Sulfate 2 mg Q4HPRN PRN IV 10/04/24 11:45 Cancel Nitroglycerin 0.4 mg Q5MINP PRN SL 10/04/24 11:45 Morphine Sulfate 2 mg Q30M PRN IV 10/04/24 11:45 Cancel Lorazepam 50 mg/ Sodium Chloride 50 ml @ 1 mls/hr Q24H IV 10/04/24 18:15 Cancel Amino Acids 0 ml @ 0 mls/hr PER PHARMACY IV 10/05/24 14:30 UNV Diagnostic Test (Pha) 1 strip Q6HR 10/05/24 18:00 11/01/24 05:54 1 STRIP Insulin Human Regular FOLLOW SLIDING SCALE Q6HR SC 10/05/24 18:00 11/01/24 05:56 2 UNITS Dextrose 50 ml UD IV 10/05/24 14:45 Meropenem 50 ml @ 17 mls/hr Q12HR IV 10/07/24 10:00 UNV Labetalol HCl 10 mg Q2HPRN PRN IV 10/08/24 09:30 10/31/24 12:26 10 MG Levalbuterol HCl 0.625 mg Q6HR NEB 10/13/24 12:00 11/01/24 06:21 0.625 MG Ipratropium [place] 0.5 mg Q6HR NEB 10/13/24 12:00 11/01/24 06:21 0.5 MG Norepinephrine Bitartrate 32 mg/ Sodium Chloride 250 ml @ 0.938 mls/ hr Q24H IV 10/14/24 10:15 Hold 10/30/24 21:15 0.938 MLS/HR Bumetanide 1 mg DAILY IV 10/22/24 10:00 10/31/24 09:46 1 MG Morphine Sulfate 2 mg Q4HPRN PRN IV 10/21/24 11:30 10/30/24 14:22 2 MG Nicardipine/ Sodium Chloride 200 ml @ 50 mls/hr Q4H IV 10/22/24 08:45 10/30/24 15:34 75 MLS/HR Acetaminophen 650 mg Q6HP PRN GT 10/22/24 09:00 10/31/24 21:08 650 MG Metoprolol Tartrate 1.25 mg Q6HPRN PRN IV 10/27/24 09:45 10/31/24 12:17 1.25 MG Amino Acids 0 ml @ 0 mls/hr PER PHARMACY IV 10/28/24 09:15 Sucralfate 1 gm BID@0600,2200 GT 10/28/24 22:00 11/01/24 05:47 1 GM Pantoprazole Sodium 50 ml @ 0 mls/hr Q0M IV 10/28/24 16:15 Cancel Lorazepam 1 mg ONCE PRN IV 10/30/24 11:00 Midazolam HCl 1 mg Q2HP PRN IV 10/30/24 16:45 Epoetin Roger-epbx 10,000 unit MWF@2100 [place] 10/31/24 21:00 10/31/24 21:07 10,000 UNIT Fat Emulsion Intravenous 100 ml/Sodium Chloride 50 meq/ Sodium Phosphate 20 meq/Potassium Chloride 30 meq/ Calcium Gluconate 4.65 meq/ Magnesium Sulfate 16 meq/ Multivitamins 10 ml/Amino Acids/ Dextrose 1,456.5 ml @ 61 mls/hr [id number] IV 10/31/24 22:00 11/01/24 21:59 10/31/24 21:11 61 MLS/HR Meropenem 50 ml @ 17 mls/hr Q12HR IV 10/31/24 22:00 10/31/24 21:13 17 MLS/HR Vancomycin HCl 0 ml @ 0 mls/hr UD IV 10/31/24 12:45 Acetaminophen 650 mg Q6HP PRN [place] 10/31/24 13:30 Enteral Nutritional Formula 1,000 ml 30ML/HR GT 10/31/24 17:30 11/01/24 00:14 1,000 ML Sodium Chloride 10 ml QSHIFT@10,22 IV 10/31/24 22:00 10/31/24 21:19 10 ML Pantoprazole Sodium 80 mg BID IV 10/31/24 22:00 10/31/24 21:21 80 MG Metoprolol Tartrate 12.5 mg BID PO 11/01/24 10:00 Laboratory Results Laboratory Tests 11/01/24 03:59 Chemistry Test 11/01/24 03:59 Albumin 3.0 g/dL (3.2-4.8) L Calcium Level 8.9 mg/dL (8.7-10.4) Magnesium Level 1.9 mg/dL (1.6-2.6) Phosphorus Level 3.1 mg/dL (2.4-5.1) Total Protein 6.3 g/dL (5.7-8.2) Coagulation Test 10/31/24 13:40 Prothrombin Time 14.4 sec (9.3-11.8) H Prothrombin Time INR 1.41 (0.9-1.15) H Activated Partial Thromboplast Time 31.6 SEC (24.5-34.5) LFT Test 11/01/24 03:59 Alanine Aminotransferase (ALT) 77 U/L (7-40) H Alkaline Phosphatase 102 U/L (46-116) Aspartate Amino Transferase (AST) 55 U/L (<34) H Total Bilirubin 3.3 mg/dL (0.2-1.0) H Urinalysis Test 10/05/24 15:05 10/11/24 18:00 10/26/24 20:33 Urine Mucus Few (None Seen) Urine Total Protein 85.0 mg/dL (1-14) H Urine Creatinine 48.05 mg/dL (30.0-125.0) Urine Sodium 76 mmol/L (40-220) Urine Color Light-yellow (Yellow) Urine Clarity Clear (Clear) Urine pH 7.0 (5.0-9.0) Urine Specific [place] 1.014 (1.001-1.035) Urine Protein 1+ (Negative) H Urine Ketones Negative (Negative) Urine Blood 1+ /uL (Negative) H Urine Nitrite Negative (Negative) Urine Bilirubin Negative (Negative) Urine Urobilinogen Normal mg/dL (Negative) Urine Leukocyte Esterase Negative /uL (Negative) Urine RBC 1 /hpf (0 - 3) Urine Microscopic WBC 3 /HPF (0-3) Urine Squamous Epithelial Cells None seen /hpf (<5) Urine Bacteria Few /hpf (None Seen) H Urine Glucose Normal mg/dL (Normal) Blood Gas Results Test 11/01/24 07:25 Arterial Blood pH 7.397 (7.350-7.450) FiO2 % 30.0 Microbiology Microbiology Date/Time Source Procedure Growth Status 10/23/24 09:50 Voided Urine Urine Culture - Final Complete 10/23/24 09:50 Blood Blood Culture - Final NO GROWTH AFTER 5 DAYS OF INCUBATION. Complete 10/18/24 09:21 Pleural Fluid Gram Stain - Final Complete 10/18/24 09:21 Pleural Fluid Body Fluid Culture - Final Complete 10/16/24 12:05 Bronchial Washings Gram Stain - Final Complete 10/16/24 12:05 Bronchial Washings Respiratory Culture - Final Complete 10/04/24 17:10 Nose MRSA Screen - Final Complete Labs and/or images reviewed: Labs reviewed by me, Image(s) reviewed by me Assessment/Plan Assessment/Plan Impression: -severe septic shock -pneumoperitoneum secondary to perforated gastric ulcer -acute kidney injury, hemodynamically mediated, probable VMN -acute hypoxic respiratory failure -shock liver -nicotine dependence -history of CVA -right upper extremity DVT -multifocal pneumonia, probable Gram-positive/Gram-negative etiology -anemia secondary to nutrition, renal failure -bilateral pleural effusions -small left pneumothorax -Failure of ventilator weaning, status post tracheostomy Plan: Events: Patient had PICC line to lower extremity. DC left jugular Devin cath. Tube feedings restarted. Continues to be tachycardic. -continue TPN -GI consultation: Recommendations reviewed. Patient placed on Protonix drip -f start low-dose metoprolol tartrate -antibiotic therapy: Zosyn, Zyvox -nephrology consultation: Recommendations reviewed. Patient received HD yesterday -Continue to hold anticoagulation: Thrombocytopenic with platelet count 16835 -repeat labs, chest x-ray, ABG in a.m. -Discussed plan of care with . All questions answered. Critical care time spent with patient discussing and formulating plan of care: 90 minutes. This does not include time spent performing procedures. This medical document was created using an electronic medical record system with [employer] dictation system. Although this document has been carefully reviewed, there may still be some phonetic and typographical errors. These areas are purely typographical due to imperfections of the software programs, and do not reflect any compromise in the patient's medical care. Plan discussed with: Patient, Other (RN) My Orders Orders - CHEYENNE PIKE NP Procedure Category Date Status Time Chest Portable XY 11/01/24 Resulted 04:00 Amino Acid PHA 10/31/24 In Process Infusion... W/Fat 22:00 Tpn Per Pharmacy [facility] 11/01/24 In Process 05:00 Acetaminophen PHA 10/31/24 In Process Suppository (Tylenol 13:30 Nutritional PHA 10/31/24 In Process Supplements (Nepro 17:30 Abg W/ Co-Ox RT 11/01/24 Logged 06:00 Metoprolol Tartrate PHA 11/01/24 In Process Tablet (Lopressor Ta 10:00 Basic Metabolic Panel LAB 11/02/24 Verified 05:00 Basic Metabolic Panel LAB 11/03/24 Verified 05:00 Basic Metabolic Panel LAB 11/04/24 Verified 05:00 Complete Blood Count LAB 11/02/24 Verified 05:00 Complete Blood Count LAB 11/03/24 Verified 05:00 Complete Blood Count LAB 11/04/24 Verified 05:00 Chest Portable XY 11/02/24 Logged 04:00 Cpap Trial For Am ORDERS 11/01/24 Transmitted 07:17 Date of Service: Nov 01, 2024 Billing Provider: CHEYENNE PIKE NP Common Visit Codes: 10330-[id number] CARE 30-74 MIN, 13759-RAGDCPDR CARE-EACH +30MIN CHEYENNE PIKE NP Nov 01, 2024 09:11
[2024-11-01] MEDS: METOPROLOL TARTRATE 25 MG TAB PO SCH (09:35)
--- NOTE | 2024-11-01 14:14 | DVHPN2 ---
Progress Note - Dictate Date Seen: Nov 01, 2024 Medical Necessity Reason Pt with a Central, PICC or Fol: No The following are medically ne: Central Line, Gómez Catheter Reason for gómez catheter: Strict I&O vital signs Vital Sign Date Time Temp Pulse Resp B/P (MAP) Pulse Ox O2 Delivery O2 Flow Rate FiO2 11/01/24 13:30 129 26 126/65 (85) 100 126/74 (91) 11/01/24 12:00 30 11/01/24 12:00 100.4 100.4 11/01/24 12:00 Mechanical Ventilator+ Total Intake and Output 10/31/24 10/31/24 11/01/24 15:00 23:00 07:00 Intake Total 842.5 ml 564.938 ml 714.814 ml Output Total 900 ml 900 ml Balance 842.5 ml -335.062 ml -185.186 ml medications Current Medications Medications Dose Ordered Sig/Wally Route Start Time Stop Time Status Last Admin Dose Admin Fentanyl Citrate 250 ml @ 2.5 mls/hr Q24H IV 10/04/24 09:45 10/31/24 18:03 5 MLS/HR Ondansetron HCl 4 mg Q4HP PRN IV 10/04/24 11:45 Morphine Sulfate 2 mg Q4HPRN PRN IV 10/04/24 11:45 Cancel Nitroglycerin 0.4 mg Q5MINP PRN SL 10/04/24 11:45 Morphine Sulfate 2 mg Q30M PRN IV 10/04/24 11:45 Cancel Lorazepam 50 mg/ Sodium Chloride 50 ml @ 1 mls/hr Q24H IV 10/04/24 18:15 Cancel Amino Acids 0 ml @ 0 mls/hr PER PHARMACY IV 10/05/24 14:30 UNV Diagnostic Test (Pha) 1 strip Q6HR 10/05/24 18:00 11/01/24 11:39 1 STRIP Insulin Human Regular FOLLOW SLIDING SCALE Q6HR SC 10/05/24 18:00 11/01/24 11:40 2 UNITS Dextrose 50 ml UD IV 10/05/24 14:45 Meropenem 50 ml @ 17 mls/hr Q12HR IV 10/07/24 10:00 UNV Labetalol HCl 10 mg Q2HPRN PRN IV 10/08/24 09:30 6/13/25 12:26 10 MG Levalbuterol HCl 0.625 mg Q6HR NEB 10/13/24 12:00 11/01/24 11:40 0.625 MG Ipratropium [place] 0.5 mg Q6HR NEB 10/13/24 12:00 11/01/24 11:40 0.5 MG Norepinephrine Bitartrate 32 mg/ Sodium Chloride 250 ml @ 0.938 mls/ hr Q24H IV 10/14/24 10:15 Hold 10/30/24 21:15 0.938 MLS/HR Bumetanide 1 mg DAILY IV 10/22/24 10:00 11/01/24 09:36 1 MG Morphine Sulfate 2 mg Q4HPRN PRN IV 10/21/24 11:30 10/30/24 14:22 2 MG Nicardipine/ Sodium Chloride 200 ml @ 50 mls/hr Q4H IV 10/22/24 08:45 10/30/24 15:34 75 MLS/HR Acetaminophen 650 mg Q6HP PRN GT 10/22/24 09:00 10/31/24 21:08 650 MG Metoprolol Tartrate 1.25 mg Q6HPRN PRN IV 10/27/24 09:45 10/31/24 12:17 1.25 MG Amino Acids 0 ml @ 0 mls/hr PER PHARMACY IV 10/28/24 09:15 Sucralfate 1 gm BID@0600,2200 GT 10/28/24 22:00 11/01/24 05:47 1 GM Pantoprazole Sodium 50 ml @ 0 mls/hr Q0M IV 10/28/24 16:15 Cancel Lorazepam 1 mg ONCE PRN IV 10/30/24 11:00 Midazolam HCl 1 mg Q2HP PRN IV 10/30/24 16:45 Epoetin Roger-epbx 10,000 unit MWF@2100 [place] 10/31/24 21:00 10/31/24 21:07 10,000 UNIT Fat Emulsion Intravenous 100 ml/Sodium Chloride 50 meq/ Sodium Phosphate 20 meq/Potassium Chloride 30 meq/ Calcium Gluconate 4.65 meq/ Magnesium Sulfate 16 meq/ Multivitamins 10 ml/Amino Acids/ Dextrose 1,456.5 ml @ 61 mls/hr [id number] IV 10/31/24 22:00 11/01/24 21:59 10/31/24 21:11 61 MLS/HR Meropenem 50 ml @ 17 mls/hr Q12HR IV 10/31/24 22:00 11/01/24 09:36 17 MLS/HR Vancomycin HCl 0 ml @ 0 mls/hr UD IV 10/31/24 12:45 Acetaminophen 650 mg Q6HP PRN [place] 10/31/24 13:30 Enteral Nutritional Formula 1,000 ml 30ML/HR GT 10/31/24 17:30 11/01/24 00:14 1,000 ML Sodium Chloride 10 ml QSHIFT@10,22 IV 10/31/24 22:00 11/01/24 09:37 10 ML Pantoprazole Sodium 80 mg BID IV 10/31/24 22:00 11/01/24 09:35 80 MG Metoprolol Tartrate 12.5 mg BID PO 11/01/24 10:00 11/01/24 09:35 12.5 MG Fat Emulsion Intravenous 150 ml/Sodium Chloride 60 meq/ Sodium Acetate 20 meq/Potassium Chloride 20 meq/ Potassium Acetate 20 meq/Magnesium Sulfate 18 meq/ Multivitamins 10 ml/Amino Acids/ Dextrose 1,559.5 ml @ 65 mls/hr Q24H IV 11/01/24 22:00 11/02/24 21:59 laboratory and microbiology Laboratory Tests 11/01/24 03:59 Test 11/01/24 03:59 Range/Units Serum Glucose 142 H 74-106 mg/dL Assessment/Plan Impression Acute hypoxemic respiratory failure S/p tracheostomy Perforated viscus Septic shock Smoker Patient seen and examined in ICU Events On mechanical ventilation S/p tracheostomy PEEP 5, FiO2 30% Appears encephalopathic Cultures obtained Labs and imaging reviewed ABG reviewed Management Vent support Titrate to maintain sats 90% or above Trach care per RT protocols Continue antibiotics F/u cultures Bronchodilators Monitor renal function Monitor electrolytes Supplement as needed HD per nephrology Nutritional support Tube feedings DVT prophylaxis Critical care time 35 minutes Dietary Evaluation Review Comments: 1. Continue TPN to meet at least 75% estimated needs 2. Continue current POC Expected Outcomes/Goals: FU 2-3 days to meet adequate energy & protein within 7 days of NPO Protein Calorie Malnutrition: Severe (rn) Plan discussed with: Other (Rn) CC Plasma Assessment Blood Product Administration S: [id number] VALENTE DEE MD Nov 01, 2024 14:14
--- NOTE | 2024-11-01 15:47 | DVH ---
PROCEDURE: MRI BRAIN HEAD WO CONTRAST Indication: CVA COMPARISON: 10/24/2024 TECHNIQUE: Multiplanar multisequence images of the brain are obtained. FINDINGS: Examination degraded by susceptibility artifact in the suboccipital region. Within the limi tations: There is no abnormal diffusion restriction. Cdla-sg-[id number] periventricular and subcortical white ma tter T2/FLAIR hyperintense changes. Old bilateral basal ganglia / lopes radiata infarcts. There is n o intracranial hemorrhage. No extra-axial fluid collection, mass effect or midline shift. The ventric les are midline and normal in size. The cisterns are patent. Normal intracranial flow voids are prese rved. 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 Mucosal thickening ethmoids The visualized orbits are unremarkable. IMPRESSION: No acute cerebrovascular ischemia. [id number]-mh-[id number] chronic microvascular ischemic changes. Bilateral mastoid effusions. Old bilateral basal ganglia / lopes radiata infarcts.
[2024-11-01] MEDS: MIDAZOLAM HCL 2MG/2ML 2ml VIAL (1mg/ml) IV PRN (15:56)
[2024-11-01] MEDS: LORazepam 2MG/ML-1ML VIAL IV PRN (15:56)
--- NOTE | 2024-11-01 16:23 | DVHPN2 ---
Progress Note Date Seen: Nov 01, 2024 Medical Necessity Reason Pt with a Central, PICC or Fol: No The following are medically ne: Central Line, Gómez Catheter Reason for gómez catheter: Strict I&O Subjective Review of Systems: Deferred Objective vital signs Vital Sign Date Time Temp Pulse Resp B/P (MAP) Pulse Ox O2 Delivery O2 Flow Rate FiO2 11/01/24 16:00 99.1 119 22 69/33 (45) 100 99.1 74/46 (55) 11/01/24 16:00 30 11/01/24 16:00 Mechanical Ventilator+ Total Intake and Output 10/31/24 10/31/24 11/01/24 15:00 23:00 07:00 Intake Total 842.5 ml 564.938 ml 714.814 ml Output Total 900 ml 900 ml Balance 842.5 ml -335.062 ml -185.186 ml medications Current Medications Medications Dose Ordered Sig/Wally Route Start Time Stop Time Status Last Admin Dose Admin Fentanyl Citrate 250 ml @ 2.5 mls/hr Q24H IV 10/04/24 09:45 10/31/24 18:03 5 MLS/HR Ondansetron HCl 4 mg Q4HP PRN IV 10/04/24 11:45 Morphine Sulfate 2 mg Q4HPRN PRN IV 10/04/24 11:45 Cancel Nitroglycerin 0.4 mg Q5MINP PRN SL 10/04/24 11:45 Morphine Sulfate 2 mg Q30M PRN IV 10/04/24 11:45 Cancel Lorazepam 50 mg/ Sodium Chloride 50 ml @ 1 mls/hr Q24H IV 10/04/24 18:15 Cancel Amino Acids 0 ml @ 0 mls/hr PER PHARMACY IV 10/05/24 14:30 UNV Diagnostic Test (Pha) 1 strip Q6HR 10/05/24 18:00 11/01/24 11:39 1 STRIP Insulin Human Regular FOLLOW SLIDING SCALE Q6HR SC 10/05/24 18:00 11/01/24 11:40 2 UNITS Dextrose 50 ml UD IV 10/05/24 14:45 Meropenem 50 ml @ 17 mls/hr Q12HR IV 10/07/24 10:00 UNV Labetalol HCl 10 mg Q2HPRN PRN IV 10/08/24 09:30 10/31/24 12:26 10 MG Levalbuterol HCl 0.625 mg Q6HR NEB 10/13/24 12:00 11/01/24 11:40 0.625 MG Ipratropium [place] 0.5 mg Q6HR NEB 10/13/24 12:00 11/01/24 11:40 0.5 MG Norepinephrine Bitartrate 32 mg/ Sodium Chloride 250 ml @ 0.938 mls/ hr Q24H IV 10/14/24 10:15 Hold 10/30/24 21:15 0.938 MLS/HR Bumetanide 1 mg DAILY IV 10/22/24 10:00 11/01/24 09:36 1 MG Morphine Sulfate 2 mg Q4HPRN PRN IV 10/21/24 11:30 10/30/24 14:22 2 MG Nicardipine/ Sodium Chloride 200 ml @ 50 mls/hr Q4H IV 10/22/24 08:45 10/30/24 15:34 75 MLS/HR Acetaminophen 650 mg Q6HP PRN GT 10/22/24 09:00 10/31/24 21:08 650 MG Metoprolol Tartrate 1.25 mg Q6HPRN PRN IV 10/27/24 09:45 10/31/24 12:17 1.25 MG Amino Acids 0 ml @ 0 mls/hr PER PHARMACY IV 10/28/24 09:15 Sucralfate 1 gm BID@0600,2200 GT 10/28/24 22:00 11/01/24 05:47 1 GM Pantoprazole Sodium 50 ml @ 0 mls/hr Q0M IV 10/28/24 16:15 Cancel Lorazepam 1 mg ONCE PRN IV 10/30/24 11:00 Midazolam HCl 1 mg Q2HP PRN IV 10/30/24 16:45 11/01/24 15:56 1 MG Epoetin Roger-epbx 10,000 unit MWF@2100 PA 10/31/24 21:00 10/31/24 21:07 10,000 UNIT Fat Emulsion Intravenous 100 ml/Sodium Chloride 50 meq/ Sodium Phosphate 20 meq/Potassium Chloride 30 meq/ Calcium Gluconate 4.65 meq/ Magnesium Sulfate 16 meq/ Multivitamins 10 ml/Amino Acids/ Dextrose 1,456.5 ml @ 61 mls/hr [id number] IV 10/31/24 22:00 11/01/24 21:59 10/31/24 21:11 61 MLS/HR Meropenem 50 ml @ 17 mls/hr Q12HR IV 10/31/24 22:00 11/01/24 09:36 17 MLS/HR Vancomycin HCl 0 ml @ 0 mls/hr UD IV 10/31/24 12:45 Acetaminophen 650 mg Q6HP PRN [place] 10/31/24 13:30 Enteral Nutritional Formula 1,000 ml 30ML/HR GT 10/31/24 17:30 11/01/24 00:14 1,000 ML Sodium Chloride 10 ml QSHIFT@10,22 IV 10/31/24 22:00 11/01/24 09:37 10 ML Pantoprazole Sodium 80 mg BID IV 10/31/24 22:00 11/01/24 09:35 80 MG Metoprolol Tartrate 12.5 mg BID PO 11/01/24 10:00 11/01/24 09:35 12.5 MG Fat Emulsion Intravenous 150 ml/Sodium Chloride 60 meq/ Sodium Acetate 20 meq/Potassium Chloride 20 meq/ Potassium Acetate 20 meq/Magnesium Sulfate 18 meq/ Multivitamins 10 ml/Amino Acids/ Dextrose 1,559.5 ml @ 65 mls/hr Q24H IV 11/01/24 22:00 11/02/24 21:59 Examination: GENERAL:Abnormal, CVS:Abnormal, ABDOMEN:Abnormal, SKIN:Normal laboratory and microbiology Laboratory Tests 11/01/24 03:59 Test 11/01/24 03:59 Range/Units Serum Glucose 142 H 74-106 mg/dL Microbiology Date/Time Source Procedure Growth Status 10/31/24 21:00 Voided Urine Urine Culture - Preliminary Resulted 10/31/24 10:50 Blood Blood Culture - Preliminary NO GROWTH AFTER 24 HOURS OF INCUBATION. Resulted 10/18/24 09:21 Pleural Fluid Gram Stain - Final Complete 10/18/24 09:21 Pleural Fluid Body Fluid Culture - Final Complete 10/16/24 12:05 Bronchial Washings Gram Stain - Final Complete 10/16/24 12:05 Bronchial Washings Respiratory Culture - Final Complete 10/04/24 17:10 Nose MRSA Screen - Final Complete Problem List/Assessment/Plan Problem List/Assessment/Plan 48-year-old male presents to the hospital abdominal pain patient was diagnosed with acute gastric perforation status post surgery . Acute kidney injury hemodynamically mediated requiring acute inpatient hemodialysis Acute respiratory failure -> now trach to vent Perforated gastric ulcer status post exploratory laparoscopic surgery Hypokalemia Anemia due to chronic disease/inflammation tachycardia low BP today, hold BP meds HD tentative on Sunday if stable sepsis w/u on going, old IJ removed, HD via femoral Epogen 3x a week GI consult keep MAP > 65 Albumin for support Avoid hypotension Strict Is&Os Plan discussed with: Other My Orders My Orders Orders - ISABELLE CASTELLANO MD Procedure Category Date Status Time Communication Order ORDERS 10/31/24 Transmitted 16:00 Dietary Evaluation Review Comments: 1. Continue TPN to meet at least 75% estimated needs 2. Continue current POC Expected Outcomes/Goals: FU 2-3 days to meet adequate energy & protein within 7 days of NPO Protein Calorie Malnutrition: Severe (rn) Critical Care Time (mins): 33 CC Plasma Assessment Blood Product Administration S: [id number] ISABELLE CASTELLANO MD Nov 01, 2024 16:23
--- NOTE | 2024-11-01 20:40 | DVHPN2 ---
Progress Note - Dictate Date Seen: Nov 01, 2024 Medical Necessity Reason Pt with a Central, PICC or Fol: No The following are medically ne: Central Line, Gómez Catheter Reason for gómez catheter: Strict I&O Subjective Mr. Perez is a 48 years old right-handed gentleman with a history of hypertension, dyslipidemia, multiple strokes, he was brought to the [facility] on 10/04/2024 with a chief company of recurrent syncope, in the hospital, the patient was found to have perforated viscus, and he went through surgical treatment, he was hospital course has been complicated with sepsis, septic shock, pneumonia, right upper extremity DVT. With appropriate treatment, the patient has improved, but he does not mentally recover as anticipated. I saw him on 08/23/2023 for TIA I have seen and examined the patient, discussed with his nurse, in the room. He is on vent, awake, he may track, but is nonresponsive to verbal commands, he does not move the arms and legs T-max: 101.3 Fentanyl 50 mcg/hour, levo 8 mcg/minutes Urinalysis, 08/22/2023: Unremarkable UDS, 08/22/2023: Negative WBC/Hb/PLT'/MCV, 08/22/2023: 10.8/13.1/184/87.4, 10/28/2024: 15/8/487/89.3 10/31/2024: 24.3/9.1/77/88.4 Troponin 1 high-sensitivity, 08/22/2023: 336, 273/300 BUNs/CR, 08/22/2023: 15/1.45 10/31/2024: Two 9/2.42 GFR, 08/22/2023: 59 Liver function test, 10/04/2024: Unremarkable TBI/AST/ALT/AP, 10/04/2024: 0.6/410/335/31, 10/05/2024: 1.3/582/423/39, 10/31/2024: 3.6/54/98/117 TG/CHO L/LDL/HDL, 08/2023: 136/166/111/39 TSH, 08/23/2023: 4.25 DONAL, 08/23/2023: 1. No evidence of intracardiac source of embolus in the study conducted today. 2. Normal valves without significant masses or change vegetations were discernible. 3. No evidence of intra-atrial shunting by bubble study and color Doppler. 4. Mild atherosclerotic plaquing was visualized in the arch of the aorta without evidence of dissection in the visualized part CT head, 10/24/2024: 1. No intracranial hemorrhage or mass effect. 2. [id number] chronic microvascular ischemic changes. 3. Old bilateral basal ganglia lacunar infarcts. 4. Small bilateral mastoid effusions. CT abdomen/pelvis, 10/04/2024: 1. Extensive intra-abdominal free air concerning for perforated viscus. Surgical consultation is recommended. 2. Enteritis is seen in multiple loops of small bowel in the left hemiabdomen. 3. Moderate abdominopelvic ascites. 4. Small right pleural effusion. CTA neck, head, 08/22/2023:1. CTA head demonstrates no evidence of large vessel occlusion, aneurysm, or significant stenosis. 2. CTA neck demonstrates no evidence of carotid or vertebral dissection or significant stenosis. 3. No noncontrast CT head was performed. 4. Additional findings as detailed above MRI head, 08/23/2023: No acute infarct, intracranial hemorrhage, mass effect, or hydrocephalus. Moderate periventricular and deep subcortical white matter T2 hyperintensities which are nonspecific, but most likely related to sequela of chronic microvascular ischemic changes (I have reviewed the MRI films with our in-house radiologist, Dr. Black, the patient has bilateral multiple subacute/chronic infarcts) MRI head, 11/01/2024: No acute cerebrovascular ischemia. Lewv-[id number] chronic microvascular ischemic changes. Bilateral mastoid effusions. Old bilateral basal ganglia / lopes radiata infarcts. vital signs Vital Sign Date Time Temp Pulse Resp B/P (MAP) Pulse Ox O2 Delivery O2 Flow Rate FiO2 11/01/24 20:19 117 21 83/40 (54) 100 30 11/01/24 20:00 Mechanical Ventilator+ 11/01/24 18:29 100.8 Total Intake and Output 10/31/24 10/31/24 11/01/24 15:00 23:00 07:00 Intake Total 842.5 ml 564.938 ml 714.814 ml Output Total 900 ml 900 ml Balance 842.5 ml -335.062 ml -185.186 ml medications Current Medications Medications Dose Ordered Sig/Wally Route Start Time Stop Time Status Last Admin Dose Admin Fentanyl Citrate 250 ml @ 2.5 mls/hr Q24H IV 10/04/24 09:45 10/31/24 18:03 5 MLS/HR Ondansetron HCl 4 mg Q4HP PRN IV 10/04/24 11:45 Morphine Sulfate 2 mg Q4HPRN PRN IV 10/04/24 11:45 Cancel Nitroglycerin 0.4 mg Q5MINP PRN SL 10/04/24 11:45 Morphine Sulfate 2 mg Q30M PRN IV 10/04/24 11:45 Cancel Lorazepam 50 mg/ Sodium Chloride 50 ml @ 1 mls/hr Q24H IV 10/04/24 18:15 Cancel Amino Acids 0 ml @ 0 mls/hr PER PHARMACY IV 10/05/24 14:30 UNV Diagnostic Test (Pha) 1 strip Q6HR 10/05/24 18:00 11/01/24 17:41 1 STRIP Insulin Human Regular FOLLOW SLIDING SCALE Q6HR SC 10/05/24 18:00 11/01/24 17:42 2 UNITS Dextrose 50 ml UD IV 10/05/24 14:45 Meropenem 50 ml @ 17 mls/hr Q12HR IV 10/07/24 10:00 UNV Labetalol HCl 10 mg Q2HPRN PRN IV 10/08/24 09:30 10/31/24 12:26 10 MG Levalbuterol HCl 0.625 mg Q6HR NEB 10/13/24 12:00 11/01/24 18:31 0.625 MG Ipratropium [place] 0.5 mg Q6HR NEB 10/13/24 12:00 11/01/24 18:31 0.5 MG Norepinephrine Bitartrate 32 mg/ Sodium Chloride 250 ml @ 0.938 mls/ hr Q24H IV 10/14/24 10:15 Hold 10/30/24 21:15 0.938 MLS/HR Bumetanide 1 mg DAILY IV 10/22/24 10:00 11/01/24 09:36 1 MG Morphine Sulfate 2 mg Q4HPRN PRN IV 10/21/24 11:30 10/30/24 14:22 2 MG Nicardipine/ Sodium Chloride 200 ml @ 50 mls/hr Q4H IV 10/22/24 08:45 10/30/24 15:34 75 MLS/HR Acetaminophen 650 mg Q6HP PRN GT 10/22/24 09:00 11/01/24 18:29 650 MG Metoprolol Tartrate 1.25 mg Q6HPRN PRN IV 10/27/24 09:45 10/31/24 12:17 1.25 MG Amino Acids 0 ml @ 0 mls/hr PER PHARMACY IV 10/28/24 09:15 Sucralfate 1 gm BID@0600,2200 GT 10/28/24 22:00 11/01/24 05:47 1 GM Pantoprazole Sodium 50 ml @ 0 mls/hr Q0M IV 10/28/24 16:15 Cancel Lorazepam 1 mg ONCE PRN IV 10/30/24 11:00 Midazolam HCl 1 mg Q2HP PRN IV 10/30/24 16:45 11/01/24 15:56 1 MG Epoetin Roger-epbx 10,000 unit MWF@2100 [place] 10/31/24 21:00 10/31/24 21:07 10,000 UNIT Fat Emulsion Intravenous 100 ml/Sodium Chloride 50 meq/ Sodium Phosphate 20 meq/Potassium Chloride 30 meq/ Calcium Gluconate 4.65 meq/ Magnesium Sulfate 16 meq/ Multivitamins 10 ml/Amino Acids/ Dextrose 1,456.5 ml @ 61 mls/hr [id number] IV 10/31/24 22:00 11/01/24 21:59 10/31/24 21:11 61 MLS/HR Meropenem 50 ml @ 17 mls/hr Q12HR IV 10/31/24 22:00 11/01/24 09:36 17 MLS/HR Vancomycin HCl 0 ml @ 0 mls/hr UD IV 10/31/24 12:45 Acetaminophen 650 mg Q6HP PRN MD 10/31/24 13:30 Enteral Nutritional Formula 1,000 ml 30ML/HR GT 10/31/24 17:30 11/01/24 00:14 1,000 ML Sodium Chloride 10 ml QSHIFT@10,22 IV 10/31/24 22:00 11/01/24 09:37 10 ML Pantoprazole Sodium 80 mg BID IV 10/31/24 22:00 11/01/24 09:35 80 MG Metoprolol Tartrate 12.5 mg BID PO 11/01/24 10:00 11/01/24 09:35 12.5 MG Fat Emulsion Intravenous 150 ml/Sodium Chloride 60 meq/ Sodium Acetate 20 meq/Potassium Chloride 20 meq/ Potassium Acetate 20 meq/Magnesium Sulfate 18 meq/ Multivitamins 10 ml/Amino Acids/ Dextrose 1,559.5 ml @ 65 mls/hr Q24H IV 11/01/24 22:00 11/02/24 21:59 objective General: the patient is well developed and nourished. No acute distress. MENTAL STATUS: Subjective SPEECH, LANGUAGE, HIGHER CORTICAL FUNCTION: He does not vocalize/status post tracheostomy. CRANIAL NERVES:Intact visual ansari to confrontation (visual thread). Pupils are equal, round and reactive. EOMs full and conjugate. Mandibular strength intact. Facial muscles symmetrical and strength intact. SENSATION: Sensation to touch and pinprick is unremarkable MOTOR: Normal muscle bulk. No fasciculations. No abnormal movements or posturing. No spontaneous extremity movement REFLEXES: Deep tendon reflexes are increased bilaterally, clonus in both knees . No pathological reflexes. CEREBELLAR/COORDINATION: Deferred GAIT/STATION: deferred laboratory and microbiology Laboratory Tests 11/01/24 03:59 Test 11/01/24 03:59 Range/Units Serum Glucose 142 H 74-106 mg/dL Problem List Altered mental status Metabolic encephalopathy secondary to sepsis, septic shock, pneumonia Hypoxic encephalopathy Viscus perforation status post surgical repair GI bleeding Anemia Sepsis, septic shock Respiratory failure S/P tracheostomy Multiple strokes Secondary to history methamphetamine, cocaine, alcohol use History of alcohol abuse History of cocaine, methamphetamine abuse Hyperreflexia secondary to multiple strokes Assessment/Plan Monitoring Supportive treatment ICU care Stabilize vitals Respiratory support/vent management Follow-up labs IV antibiotics Resume Aspirin 81 mg daily later TPN Quit tobacco smoking No more alcohol, street drug abuse Stroke risk factors discussed More recommended per clinical course This medical document was created using an electronic medical record system with [employer] dictation system. Although this document has been carefully reviewed, there may still be some phonetic and typographical errors. These areas are purely typographical due to imperfections of the software programs, and do not reflect any compromise in the patient's medical care. Prognosis poor, guarded Dietary Evaluation Review Comments: 1. Continue TPN to meet at least 75% estimated needs 2. Continue current POC Expected Outcomes/Goals: FU 2-3 days to meet adequate energy & protein within 7 days of NPO Protein Calorie Malnutrition: Severe (rn) Plan discussed with: Spouse, Other Critical Care Time(min): 30 CC Plasma Assessment Blood Product Administration S: [id number] LEANDRO BLACK MD Nov 01, 2024 20:40
[2024-11-01] MEDS: TPN PER PHARMACY IV NR (21:49)
[2024-11-01] MEDS: IBUPROFEN 600 MG TAB PO ONE (23:23)
[2024-11-02] VITALS (106 sets, daily range): BP systolic 79–205; BP diastolic 37–156; PULSE 71–139; RESP 17–39; TEMP 97–100.8; O2SAT 95–100
[2024-11-02 04:17] LABS: Hematocrit 21.3 % (41.0-53.0); Hemoglobin 7.3 g/dL (13.5-17.5); Mean Corpuscular Hemoglobin 30.3 pg (28.0-32.0); Mean Corpuscular Volume 88.4 fL (80.0-100.0); Nucleated Red Blood Cells % 0.3 %
[2024-11-02 04:31] LABS: Anion Gap 16 (5-15); BUN/Creatinine Ratio 14.3 (10.0-20.0); Chloride 100 mmol/L (98-107); Magnesium 2.4 mg/dL (1.6-2.6); Total Protein 5.9 g/dL (5.7-8.2)
[2024-11-02 04:33] LABS: Alanine Aminotransferase 58 U/L (7-40); Albumin 2.8 g/dL (3.2-4.8); Alkaline Phosphatase 143 U/L (46-116); Bilirubin, Total 2.8 mg/dL (0.2-1.0); Blood Urea Nitrogen 61 mg/dL (9-23); Calcium 8.3 mg/dL (8.7-10.4); Carbon Dioxide 19 mmol/L (20-31); Glucose 145 mg/dL (74-106); Potassium 2.6 mmol/L (3.5-5.1); Sodium 135 mmol/L (136-145)
[2024-11-02] MEDS: POTASSIUM CHL 20MEQ/100ML 100 ML IV ONE (05:07)
--- NOTE | 2024-11-02 06:27 | DVH ---
CHEST RADIOGRAPH Indication: pna Technique: Single frontal view of the chest was obtained COMPARISON: XY CHEST PORTABLE on DOS: 11/01/24, XY CHEST XRAY 1 VIEW on DOS: 10/31/24, XY CHEST PORTABL E on DOS: 10/30/24, XY CHEST PORTABLE on DOS: 10/30/24, XY CHEST PORTABLE on DOS: 10/29/24 FINDINGS: Lines and Tubes: Tracheostomy, enteric catheter and left central venous catheter in satisfactory posi tion Lungs: Multifocal airspace disease Pleura: No effusion. No pneumothorax. Cardiomediastinal contours: Unremarkable Bones: Unremarkable IMPRESSION: Lines and tubes in satisfactory position. No significant interval change.
[2024-11-02 08:13] LABS: Base Excess -4.8 mmol/L (-2.0-3.0)
[2024-11-02] MEDS: POTASSIUM EFFERVESENT TAB 25 MEQ GT ONE (08:56)
[2024-11-02] MEDS: VANCOMYCIN 500mg/100mL 100 ML IV ONE (10:43)
[2024-11-02] MEDS ORDERED: HYDROmorphone HCL 2 MG/ML VL/or syr ONE (11:22)
[2024-11-02] MEDS: MICAFUNGIN SODIUM 100 MG in SODIUM CHL 0.9% 100 ML IV SCH (11:23)
--- NOTE | 2024-11-02 11:58 | DVHPN2 ---
Progress Note Date Seen: Nov 02, 2024 Medical Necessity Reason Pt with a Central, PICC or Fol: No The following are medically ne: Central Line, Gómez Catheter Reason for gómez catheter: Strict I&O Subjective Review of Systems: Deferred Objective vital signs Vital Sign Date Time Temp Pulse Resp B/P (MAP) Pulse Ox O2 Delivery O2 Flow Rate FiO2 11/02/24 10:38 97 114/54 11/02/24 10:05 25 100 30 11/02/24 10:00 99.0 99.0 11/02/24 10:00 Mechanical Ventilator+ Total Intake and Output 11/01/24 11/01/24 11/02/24 15:00 23:00 07:00 Intake Total 607.5 ml 406.3 ml 630.1 ml Output Total 1100 ml 330 ml Balance 607.5 ml -693.7 ml 300.1 ml medications Current Medications Medications Dose Ordered Sig/Wally Route Start Time Stop Time Status Last Admin Dose Admin Fentanyl Citrate 250 ml @ 2.5 mls/hr Q24H IV 10/04/24 09:45 10/31/24 18:03 5 MLS/HR Ondansetron HCl 4 mg Q4HP PRN IV 10/04/24 11:45 Morphine Sulfate 2 mg Q4HPRN PRN IV 10/04/24 11:45 Cancel Nitroglycerin 0.4 mg Q5MINP PRN SL 10/04/24 11:45 Morphine Sulfate 2 mg Q30M PRN IV 10/04/24 11:45 Cancel Lorazepam 50 mg/ Sodium Chloride 50 ml @ 1 mls/hr Q24H IV 10/04/24 18:15 Cancel Amino Acids 0 ml @ 0 mls/hr PER PHARMACY IV 10/05/24 14:30 UNV Diagnostic Test (Pha) 1 strip Q6HR 10/05/24 18:00 11/02/24 11:32 1 STRIP Insulin Human Regular FOLLOW SLIDING SCALE Q6HR SC 10/05/24 18:00 11/02/24 11:34 2 UNITS Dextrose 50 ml UD IV 10/05/24 14:45 Meropenem 50 ml @ 17 mls/hr Q12HR IV 10/07/24 10:00 UNV Labetalol HCl 10 mg Q2HPRN PRN IV 10/08/24 09:30 10/31/24 12:26 10 MG Levalbuterol HCl 0.625 mg Q6HR NEB 10/13/24 12:00 11/02/24 06:05 0.625 MG Ipratropium [place] 0.5 mg Q6HR NEB 10/13/24 12:00 11/02/24 06:05 0.5 MG Norepinephrine Bitartrate 32 mg/ Sodium Chloride 250 ml @ 0.938 mls/ hr Q24H IV 10/14/24 10:15 Hold 10/30/24 21:15 0.938 MLS/HR Bumetanide 1 mg DAILY IV 10/22/24 10:00 11/02/24 08:58 1 MG Morphine Sulfate 2 mg Q4HPRN PRN IV 10/21/24 11:30 10/30/24 14:22 2 MG Nicardipine/ Sodium Chloride 200 ml @ 50 mls/hr Q4H IV 10/22/24 08:45 10/30/24 15:34 75 MLS/HR Acetaminophen 650 mg Q6HP PRN GT 10/22/24 09:00 11/01/24 18:29 650 MG Metoprolol Tartrate 1.25 mg Q6HPRN PRN IV 10/27/24 09:45 10/31/24 12:17 1.25 MG Amino Acids 0 ml @ 0 mls/hr PER PHARMACY IV 10/28/24 09:15 Sucralfate 1 gm BID@0600,2200 GT 10/28/24 22:00 11/02/24 06:07 1 GM Pantoprazole Sodium 50 ml @ 0 mls/hr Q0M IV 10/28/24 16:15 Cancel Lorazepam 1 mg ONCE PRN IV 10/30/24 11:00 Midazolam HCl 1 mg Q2HP PRN IV 10/30/24 16:45 11/01/24 15:56 1 MG Epoetin Roger-epbx 10,000 unit MWF@2100 [place] 10/31/24 21:00 10/31/24 21:07 10,000 UNIT Meropenem 50 ml @ 17 mls/hr Q12HR IV 10/31/24 22:00 11/02/24 08:58 17 MLS/HR Vancomycin HCl 0 ml @ 0 mls/hr UD IV 10/31/24 12:45 Acetaminophen 650 mg Q6HP PRN [place] 10/31/24 13:30 Enteral Nutritional Formula 1,000 ml 30ML/HR GT 10/31/24 17:30 11/01/24 00:14 1,000 ML Sodium Chloride 10 ml QSHIFT@10,22 IV 10/31/24 22:00 11/02/24 08:57 10 ML Pantoprazole Sodium 80 mg BID IV 10/31/24 22:00 11/02/24 08:57 80 MG Metoprolol Tartrate 12.5 mg BID PO 11/01/24 10:00 11/02/24 08:57 12.5 MG Fat Emulsion Intravenous 150 ml/Sodium Chloride 60 meq/ Sodium Acetate 20 meq/Potassium Chloride 20 meq/ Potassium Acetate 20 meq/Magnesium Sulfate 18 meq/ Multivitamins 10 ml/Amino Acids/ Dextrose 1,559.5 ml @ 65 mls/hr Q24H IV 11/01/24 22:00 11/02/24 21:59 11/01/24 21:49 65 MLS/HR Ibuprofen 600 mg Q6HP PRN PO 11/01/24 23:15 Metoclopramide HCl 5 mg Q8HR IV 11/02/24 14:00 Micafungin Sodium 100 mg/Sodium Chloride 100 ml @ 100 mls/hr DAILY IV 11/02/24 10:00 11/02/24 11:23 100 MLS/HR Examination: GENERAL:Abnormal, LUNGS:Abnormal, CVS:Normal, ABDOMEN:Abnormal, SKIN:Abnormal laboratory and microbiology Laboratory Tests 11/02/24 03:56 Test 11/02/24 03:56 Range/Units Serum Glucose 145 H 74-106 mg/dL Microbiology Date/Time Source Procedure Growth Status 10/31/24 21:00 Voided Urine Urine Culture - Preliminary Resulted 10/31/24 10:50 Blood Blood Culture - Preliminary Resulted 10/18/24 09:21 Pleural Fluid Gram Stain - Final Complete 10/18/24 09:21 Pleural Fluid Body Fluid Culture - Final Complete 10/16/24 12:05 Bronchial Washings Gram Stain - Final Complete 10/16/24 12:05 Bronchial Washings Respiratory Culture - Final Complete 10/04/24 17:10 Nose MRSA Screen - Final Complete Problem List/Assessment/Plan Problem List/Assessment/Plan 48-year-old male presents to the hospital abdominal pain patient was diagnosed with acute gastric perforation status post surgery . Acute kidney injury hemodynamically mediated requiring acute inpatient hemodialysis Acute respiratory failure -> now trach to vent Perforated gastric ulcer status post exploratory laparoscopic surgery Hypokalemia Anemia due to chronic disease/inflammation tachycardia + Bcx more alert today uop has increased but BUN/cr still rising + BCX fungus, will schedule HD then sunday replace electrolytes, tube feeds started today Epogen 3x a week GI consult keep MAP > 65 Albumin for support Avoid hypotension Strict Is&Os Plan discussed with: Patient Dietary Evaluation Review Comments: 1. Continue TPN to meet at least 75% estimated needs 2. Continue current POC Expected Outcomes/Goals: FU 2-3 days to meet adequate energy & protein within 7 days of NPO Protein Calorie Malnutrition: Severe (rn) CC Plasma Assessment Blood Product Administration S: [id number] ISABELLE CASTELLANO MD Nov 02, 2024 11:58
[2024-11-02] MEDS: METOCLOPRAMIDE HCL 5MG/ml INJ 2ml VIAL IV SCH (13:12)
--- NOTE | 2024-11-02 13:17 | DVH ---
Upper Extremity Venous Duplex Clinical History: Assess for DVT Comparison: None Technique: Duplex doppler evaluation of the venous system of the RIGHT lower neck and upper extremity including color doppler and spectral/pulsed waveform analysis was performed. Findings: The internal jugular vein demonstrates appropriate compressibility and waveform variability. The subclavian vein is patent on color Doppler evaluation without intraluminal thrombus and demonstra kourtney waveform variability. The visualized portion of the brachiocephalic vein is patent on color Doppler evaluation without intr aluminal thrombus and demonstrates waveform variability. The axillary vein demonstrates appropriate compressibility and waveform variability. The brachial veins demonstrate appropriate compressibility and patency on Doppler evaluation. The basilic vein demonstrates appropriate compressibility and patency on Doppler evaluation. There is occlusive thrombus throughout the right cephaic vein. Impression: 1. No deep venous thrombus identified in the RIGHT upper extremity vessels evaluated above. 2. Superficial occlusive thrombus throughout the right cephalic vein.
[2024-11-02] MEDS: POTASSIUM PHOSPHATE 22 MEQ in SODIUM CHL 0.9% 100 ML IV ONE (15:36)
--- NOTE | 2024-11-02 16:44 | DVHPN2 ---
Progress Note - Dictate Date Seen: Nov 02, 2024 Medical Necessity Reason Pt with a Central, PICC or Fol: No The following are medically ne: Central Line, Gómez Catheter Reason for gómez catheter: Strict I&O vital signs Vital Sign Date Time Temp Pulse Resp B/P (MAP) Pulse Ox O2 Delivery O2 Flow Rate FiO2 11/02/24 16:26 133 34 137/77 11/02/24 16:25 100.6 11/02/24 16:07 98 30 11/02/24 16:00 Mechanical Ventilator+ Total Intake and Output 11/01/24 11/01/24 11/02/24 15:00 23:00 07:00 Intake Total 607.5 ml 406.3 ml 630.1 ml Output Total 1100 ml 330 ml Balance 607.5 ml -693.7 ml 300.1 ml medications Current Medications Medications Dose Ordered Sig/Wally Route Start Time Stop Time Status Last Admin Dose Admin Fentanyl Citrate 250 ml @ 2.5 mls/hr Q24H IV 10/04/24 09:45 10/31/24 18:03 5 MLS/HR Ondansetron HCl 4 mg Q4HP PRN IV 10/04/24 11:45 Morphine Sulfate 2 mg Q4HPRN PRN IV 10/04/24 11:45 Cancel Nitroglycerin 0.4 mg Q5MINP PRN SL 10/04/24 11:45 Morphine Sulfate 2 mg Q30M PRN IV 10/04/24 11:45 Cancel Lorazepam 50 mg/ Sodium Chloride 50 ml @ 1 mls/hr Q24H IV 10/04/24 18:15 Cancel Amino Acids 0 ml @ 0 mls/hr PER PHARMACY IV 10/05/24 14:30 UNV Diagnostic Test (Pha) 1 strip Q6HR 10/05/24 18:00 11/02/24 11:32 1 STRIP Insulin Human Regular FOLLOW SLIDING SCALE Q6HR SC 10/05/24 18:00 11/02/24 11:34 2 UNITS Dextrose 50 ml UD IV 10/05/24 14:45 Meropenem 50 ml @ 17 mls/hr Q12HR IV 10/07/24 10:00 UNV Labetalol HCl 10 mg Q2HPRN PRN IV 10/08/24 09:30 10/31/24 12:26 10 MG Levalbuterol HCl 0.625 mg Q6HR NEB 10/13/24 12:00 11/02/24 06:05 0.625 MG Ipratropium [place] 0.5 mg Q6HR NEB 10/13/24 12:00 11/02/24 06:05 0.5 MG Norepinephrine Bitartrate 32 mg/ Sodium Chloride 250 ml @ 0.938 mls/ hr Q24H IV 10/14/24 10:15 Hold 10/30/24 21:15 0.938 MLS/HR Bumetanide 1 mg DAILY IV 10/22/24 10:00 11/02/24 08:58 1 MG Morphine Sulfate 2 mg Q4HPRN PRN IV 10/21/24 11:30 11/02/24 16:26 2 MG Nicardipine/ Sodium Chloride 200 ml @ 50 mls/hr Q4H IV 10/22/24 08:45 10/30/24 15:34 75 MLS/HR Acetaminophen 650 mg Q6HP PRN GT 10/22/24 09:00 11/02/24 16:25 650 MG Metoprolol Tartrate 1.25 mg Q6HPRN PRN IV 10/27/24 09:45 10/31/24 12:17 1.25 MG Amino Acids 0 ml @ 0 mls/hr PER PHARMACY IV 10/28/24 09:15 Sucralfate 1 gm BID@0600,2200 GT 10/28/24 22:00 11/02/24 06:07 1 GM Pantoprazole Sodium 50 ml @ 0 mls/hr Q0M IV 10/28/24 16:15 Cancel Lorazepam 1 mg ONCE PRN IV 10/30/24 11:00 Midazolam HCl 1 mg Q2HP PRN IV 10/30/24 16:45 11/01/24 15:56 1 MG Epoetin Roger-epbx 10,000 unit MWF@2100 [place] 10/31/24 21:00 10/31/24 21:07 10,000 UNIT Meropenem 50 ml @ 17 mls/hr Q12HR IV 10/31/24 22:00 11/02/24 08:58 17 MLS/HR Vancomycin HCl 0 ml @ 0 mls/hr UD IV 10/31/24 12:45 Acetaminophen 650 mg Q6HP PRN [place] 10/31/24 13:30 Enteral Nutritional Formula 1,000 ml 30ML/HR GT 10/31/24 17:30 11/01/24 00:14 1,000 ML Sodium Chloride 10 ml QSHIFT@10,22 IV 10/31/24 22:00 11/02/24 08:57 10 ML Pantoprazole Sodium 80 mg BID IV 10/31/24 22:00 11/02/24 08:57 80 MG Metoprolol Tartrate 12.5 mg BID PO 11/01/24 10:00 11/02/24 08:57 12.5 MG Fat Emulsion Intravenous 150 ml/Sodium Chloride 60 meq/ Sodium Acetate 20 meq/Potassium Chloride 20 meq/ Potassium Acetate 20 meq/Magnesium Sulfate 18 meq/ Multivitamins 10 ml/Amino Acids/ Dextrose 1,559.5 ml @ 65 mls/hr Q24H IV 11/01/24 22:00 11/02/24 21:59 11/01/24 21:49 65 MLS/HR Ibuprofen 600 mg Q6HP PRN PO 11/01/24 23:15 Metoclopramide HCl 5 mg Q8HR IV 11/02/24 14:00 11/02/24 13:12 5 MG Micafungin Sodium 100 mg/Sodium Chloride 100 ml @ 100 mls/hr DAILY IV 11/02/24 10:00 11/02/24 11:23 100 MLS/HR Fat Emulsion Intravenous 150 ml/Sodium Chloride 40 meq/ Sodium Acetate 40 meq/Sodium Phosphate 20 meq/ Potassium Acetate 40 meq/Magnesium Sulfate 16 meq/ Multivitamins 10 ml/Amino Acids/ Dextrose 1,619 ml @ 67 mls/hr [id number] IV 11/02/24 22:00 11/03/24 21:59 laboratory and microbiology Laboratory Tests 11/02/24 03:56 Test 11/02/24 03:56 Range/Units Serum Glucose 145 H 74-106 mg/dL Assessment/Plan Impression Acute hypoxemic respiratory failure S/p tracheostomy Perforated viscus Septic shock Smoker Patient seen and examined in ICU Events On mechanical ventilation S/p tracheostomy PEEP 5, FiO2 30% Appears encephalopathic, febrile Cultures obtained Blood growing yeast Started on Micafungin Left IJ central line in place Will need to be "de-lined" Labs and imaging reviewed ABG reviewed Management Vent support Titrate to maintain sats 90% or above Trach care per RT protocols Continue antibiotics and antifungals F/u cultures Bronchodilators Monitor renal function Monitor electrolytes Supplement as needed HD per nephrology Nutritional support Tube feedings DVT prophylaxis Critical care time 35 minutes Dietary Evaluation Review Comments: 1. Continue TPN to meet at least 75% estimated needs 2. Continue current POC Expected Outcomes/Goals: FU 2-3 days to meet adequate energy & protein within 7 days of NPO Protein Calorie Malnutrition: Severe (rn) Plan discussed with: Other (Rn) CC Plasma Assessment Blood Product Administration S: [id number] VALENTE DEE MD Nov 02, 2024 16:44
[2024-11-02] MEDS: TPN PER PHARMACY IV NR (21:32)
[2024-11-03] VITALS (108 sets, daily range): BP systolic 90–153; BP diastolic 42–90; PULSE 72–123; RESP 16–35; TEMP 97.5–101.1; O2SAT 94–100
[2024-11-03] MEDS: IBUPROFEN 600 MG TAB PO PRN (00:04)
[2024-11-03 04:38] LABS: Anion Gap 14 (5-15); BUN/Creatinine Ratio 15.9 (10.0-20.0); Chloride 103 mmol/L (98-107); Total Protein 6.0 g/dL (5.7-8.2)
[2024-11-03 04:47] LABS: Alanine Aminotransferase 61 U/L (7-40); Albumin 2.8 g/dL (3.2-4.8); Alkaline Phosphatase 291 U/L (46-116); Bilirubin, Total 2.3 mg/dL (0.2-1.0); Blood Urea Nitrogen 75 mg/dL (9-23); Calcium 8.1 mg/dL (8.7-10.4); Carbon Dioxide 18 mmol/L (20-31); Glucose 129 mg/dL (74-106); Magnesium 2.7 mg/dL (1.6-2.6); Potassium 3.2 mmol/L (3.5-5.1); Sodium 135 mmol/L (136-145)
[2024-11-03 05:07] LABS: Hematocrit 21.4 % (41.0-53.0); Nucleated Red Blood Cells % 0.1 %
[2024-11-03 05:08] LABS: Hemoglobin 7.4 g/dL (13.5-17.5); Mean Corpuscular Hemoglobin 30.4 pg (28.0-32.0); Mean Corpuscular Volume 88.3 fL (80.0-100.0)
--- NOTE | 2024-11-03 09:15 | DVHPN2 ---
Subjective Patient continues to be encephalopathic. Following some commands Reviewed: Care Plan, H&P, Labs, Medications, Previous Orders, Radiology, Other (Consultants) Changes from previous H/P or p: No Changes General: Per HPI Objective Vitals Vital Signs Date Time Temp Pulse Resp B/P (MAP) Pulse Ox O2 Delivery O2 Flow Rate FiO2 11/03/24 08:53 119/61 11/03/24 08:52 105 11/03/24 08:43 25 100 30 11/03/24 08:00 Mechanical Ventilator+ 11/03/24 08:00 97.5 97.5 Intake/Output Intake and Output 11/03/24 07:00 Intake Total 2255 ml Output Total 1750 ml Balance 505 ml Intake Oral 170 ml IV Total 1985 ml Tube Feeding 100 ml Output Urine Total 1550 ml Drainage Total 200 ml # Bowel Movements 2 General Appearance: Alert, Cooperative, mild distress, Other (Intubated and sedated) HEENT: Atraumatic, PERRLA Lungs: Other (Mechanical ventilation. Decreased breath sounds at bases) Cardiovascular: Normal S1, Normal S2, Other (Sinus tachycardia) Abdomen: Other (NG with bilious drainage now) Neuro: Other (Unable to assess) Skin: Dry, Intact, Wounds (Abdominal wound dry and intact), Other Psych/Mental Status: Other Medications Current Medications Medications Dose Ordered Sig/Wally Route Start Time Stop Time Status Last Admin Dose Admin Fentanyl Citrate 250 ml @ 2.5 mls/hr Q24H IV 10/04/24 09:45 10/31/24 18:03 5 MLS/HR Ondansetron HCl 4 mg Q4HP PRN IV 10/04/24 11:45 Morphine Sulfate 2 mg Q4HPRN PRN IV 10/04/24 11:45 Cancel Nitroglycerin 0.4 mg Q5MINP PRN SL 10/04/24 11:45 Morphine Sulfate 2 mg Q30M PRN IV 10/04/24 11:45 Cancel Lorazepam 50 mg/ Sodium Chloride 50 ml @ 1 mls/hr Q24H IV 10/04/24 18:15 Cancel Amino Acids 0 ml @ 0 mls/hr PER PHARMACY IV 10/05/24 14:30 UNV Diagnostic Test (Pha) 1 strip Q6HR 10/05/24 18:00 11/03/24 06:00 1 STRIP Insulin Human Regular FOLLOW SLIDING SCALE Q6HR SC 10/05/24 18:00 11/03/24 00:00 2 UNITS Dextrose 50 ml UD IV 10/05/24 14:45 Meropenem 50 ml @ 17 mls/hr Q12HR IV 10/07/24 10:00 UNV Labetalol HCl 10 mg Q2HPRN PRN IV 10/08/24 09:30 10/31/24 12:26 10 MG Levalbuterol HCl 0.625 mg Q6HR NEB 10/13/24 12:00 11/03/24 06:27 0.625 MG Ipratropium [place] 0.5 mg Q6HR NEB 10/13/24 12:00 11/03/24 06:27 0.5 MG Norepinephrine Bitartrate 32 mg/ Sodium Chloride 250 ml @ 0.938 mls/ hr Q24H IV 10/14/24 10:15 Hold 10/30/24 21:15 0.938 MLS/HR Bumetanide 1 mg DAILY IV 10/22/24 10:00 11/03/24 08:53 1 MG Morphine Sulfate 2 mg Q4HPRN PRN IV 10/21/24 11:30 11/02/24 16:26 2 MG Nicardipine/ Sodium Chloride 200 ml @ 50 mls/hr Q4H IV 10/22/24 08:45 10/30/24 15:34 75 MLS/HR Acetaminophen 650 mg Q6HP PRN GT 10/22/24 09:00 11/02/24 16:25 650 MG Metoprolol Tartrate 1.25 mg Q6HPRN PRN IV 10/27/24 09:45 10/31/24 12:17 1.25 MG Amino Acids 0 ml @ 0 mls/hr PER PHARMACY IV 10/28/24 09:15 Sucralfate 1 gm BID@0600,2200 GT 10/28/24 22:00 11/03/24 06:00 1 GM Pantoprazole Sodium 50 ml @ 0 mls/hr Q0M IV 10/28/24 16:15 Cancel Lorazepam 1 mg ONCE PRN IV 10/30/24 11:00 Midazolam HCl 1 mg Q2HP PRN IV 10/30/24 16:45 11/01/24 15:56 1 MG Epoetin Roger-epbx 10,000 unit MWF@2100 OR 10/31/24 21:00 10/31/24 21:07 10,000 UNIT Meropenem 50 ml @ 17 mls/hr Q12HR IV 10/31/24 22:00 11/03/24 08:54 17 MLS/HR Vancomycin HCl 0 ml @ 0 mls/hr UD IV 10/31/24 12:45 Acetaminophen 650 mg Q6HP PRN [place] 10/31/24 13:30 Enteral Nutritional Formula 1,000 ml 30ML/HR GT 10/31/24 17:30 11/01/24 00:14 1,000 ML Sodium Chloride 10 ml QSHIFT@10,22 IV 10/31/24 22:00 11/03/24 08:53 10 ML Pantoprazole Sodium 80 mg BID IV 10/31/24 22:00 11/03/24 08:52 80 MG Metoprolol Tartrate 12.5 mg BID PO 11/01/24 10:00 11/03/24 08:52 12.5 MG Ibuprofen 600 mg Q6HP PRN PO 11/01/24 23:15 11/03/24 00:04 600 MG Metoclopramide HCl 5 mg Q8HR IV 11/02/24 14:00 11/03/24 06:00 5 MG Micafungin Sodium 100 mg/Sodium Chloride 100 ml @ 100 mls/hr DAILY IV 11/02/24 10:00 11/03/24 08:54 100 MLS/HR Fat Emulsion Intravenous 150 ml/Sodium Chloride 40 meq/ Sodium Acetate 40 meq/Sodium Phosphate 20 meq/ Potassium Acetate 40 meq/Magnesium Sulfate 16 meq/ Multivitamins 10 ml/Amino Acids/ Dextrose 1,619 ml @ 67 mls/hr [id number] IV 11/02/24 22:00 11/03/24 21:59 11/02/24 21:32 67 MLS/HR Laboratory Results Laboratory Tests 11/03/24 03:50 Chemistry Test 11/03/24 03:50 Albumin 2.8 g/dL (3.2-4.8) L Calcium Level 8.1 mg/dL (8.7-10.4) L Magnesium Level 2.7 mg/dL (1.6-2.6) H Phosphorus Level 1.1 mg/dL (2.4-5.1) L Total Protein 6.0 g/dL (5.7-8.2) LFT Test 11/03/24 03:50 Alanine Aminotransferase (ALT) 61 U/L (7-40) H Alkaline Phosphatase 291 U/L (46-116) H Aspartate Amino Transferase (AST) 72 U/L (<34) H Total Bilirubin 2.3 mg/dL (0.2-1.0) H Urinalysis Test 10/05/24 15:05 10/11/24 18:00 10/26/24 20:33 Urine Mucus Few (None Seen) Urine Total Protein 85.0 mg/dL (1-14) H Urine Creatinine 48.05 mg/dL (30.0-125.0) Urine Sodium 76 mmol/L (40-220) Urine Color Light-yellow (Yellow) Urine Clarity Clear (Clear) Urine pH 7.0 (5.0-9.0) Urine Specific [place] 1.014 (1.001-1.035) Urine Protein 1+ (Negative) H Urine Ketones Negative (Negative) Urine Blood 1+ /uL (Negative) H Urine Nitrite Negative (Negative) Urine Bilirubin Negative (Negative) Urine Urobilinogen Normal mg/dL (Negative) Urine Leukocyte Esterase Negative /uL (Negative) Urine RBC 1 /hpf (0 - 3) Urine Microscopic WBC 3 /HPF (0-3) Urine Squamous Epithelial Cells None seen /hpf (<5) Urine Bacteria Few /hpf (None Seen) H Urine Glucose Normal mg/dL (Normal) Microbiology Microbiology Date/Time Source Procedure Growth Status 10/31/24 21:00 Voided Urine Urine Culture - Final Complete 10/31/24 10:50 Blood Blood Culture - Preliminary Resulted 10/18/24 09:21 Pleural Fluid Gram Stain - Final Complete 10/18/24 09:21 Pleural Fluid Body Fluid Culture - Final Complete 10/16/24 12:05 Bronchial Washings Gram Stain - Final Complete 10/16/24 12:05 Bronchial Washings Respiratory Culture - Final Complete 10/04/24 17:10 Nose MRSA Screen - Final Complete Labs and/or images reviewed: Labs reviewed by me, Image(s) reviewed by me Assessment/Plan Assessment/Plan Impression: -severe septic shock -pneumoperitoneum secondary to perforated gastric ulcer -acute kidney injury, hemodynamically mediated, probable VMN -acute hypoxic respiratory failure -shock liver -nicotine dependence -history of CVA -right upper extremity DVT -multifocal pneumonia, probable Gram-positive/Gram-negative etiology -anemia secondary to nutrition, renal failure -bilateral pleural effusions -small left pneumothorax -Failure of ventilator weaning, status post tracheostomy -fungemia Plan: Events: Patient noted to have use growing in blood with preliminary results yesterday. Plans for HD today. Discussed case with Nephrology. Plans for HD catheter removal, a line removal, with possible removal of PICC line if patient can tolerate being off of TPN. Plans to repeat blood cultures after line holiday. Re-evaluate in of questionable DVT to right upper extremity and jugular area. Only noted superficial thrombus to cephalic vein. -we will weaned off TPN today and increase G-tube feeding -GI consultation: Recommendations reviewed. Patient placed on Protonix drip -f start low-dose metoprolol tartrate -antibiotic therapy: Zosyn, Zyvox -nephrology consultation: Recommendations reviewed. Patient received HD yesterday -Continue to hold anticoagulation: Thrombocytopenic with platelet count [id number] -repeat labs, chest x-ray, ABG in a.m. -Discussed plan of care with . All questions answered. Critical care time spent with patient discussing and formulating plan of care: 90 minutes. This does not include time spent performing procedures. This medical document was created using an electronic medical record system with Ever[employer] dictation system. Although this document has been carefully reviewed, there may still be some phonetic and typographical errors. These areas are purely typographical due to imperfections of the software programs, and do not reflect any compromise in the patient's medical care. Plan discussed with: Patient, Other (RN) My Orders Orders - CHEYENNE PIKE COATER SMOKING PIPE Procedure Category Date Status Time Micafungin Sodium PHA 11/02/24 In Process (Mycamine) 10:00 Rt Upper Dvt US 11/02/24 Resulted 10:00 Amino Acid PHA 11/02/24 In Process Infusion... W/Fat 22:00 Tpn Per Pharmacy CINTHIA 11/02/24 In Process 22:00 Cpap/Sed Vacation Med ORDERS 11/04/24 Transmitted Weaning 05:00 Cpap/Sed Vacation Med ORDERS 11/05/24 Transmitted Weaning 05:00 Cpap/Sed Vacation Med ORDERS 11/06/24 Transmitted Weaning 05:00 Cpap/Sed Vacation Med ORDERS 11/07/24 Transmitted Weaning 05:00 Cpap/Sed Vacation Med ORDERS 11/08/24 Transmitted Weaning 05:00 Cpap Trial For Am ORDERS 11/04/24 Transmitted 05:00 Cpap Trial For Am ORDERS 11/05/24 Transmitted 05:00 Cpap Trial For Am ORDERS 11/06/24 Transmitted 05:00 Cpap Trial For Am ORDERS 11/07/24 Transmitted 05:00 Cpap Trial For Am ORDERS 11/08/24 Transmitted 05:00 Date of Service: Nov 03, 2024 Billing Provider: CHEYENNE PIKE NP Common Visit Codes: [id number] INP/OBS CARE(HIGH) CHEYENNE PIKE NP Nov 03, 2024 09:15
--- NOTE | 2024-11-03 09:42 | DVHPN2 ---
Progress Note - Dictate Date Seen: Nov 03, 2024 Medical Necessity Reason Pt with a Central, PICC or Fol: No The following are medically ne: Central Line, Gómez Catheter Reason for gómez catheter: Strict I&O Subjective Mr. Perez is a 48 years old right-handed gentleman with a history of hypertension, dyslipidemia, multiple strokes, he was brought to the [facility] on 10/04/2024 with a chief company of recurrent syncope, in the hospital, the patient was found to have perforated viscus, and he went through surgical treatment, he was hospital course has been complicated with sepsis, septic shock, pneumonia, right upper extremity DVT. With appropriate treatment, the patient has improved, but he does not mentally recover as anticipated. I saw him on 08/23/2023 for TIA I have seen and examined the patient, discussed with his nurse, the case was discussed with Junito. He is on vent, awake, he tracks, only followed a few my verbal commands, he does not move the arms and legs T-max: 100.8 Urinalysis, 08/22/2023: Unremarkable UDS, 08/22/2023: Negative WBC/Hb/PLT'/MCV, 08/22/2023: 10.8/13.1/184/87.4, 10/28/2024: 15/8/487/89.3 10/31/2024: 24.3/9.1/77/88.4 Troponin 1 high-sensitivity, 08/22/2023: 336, 273/300 BUNs/CR, 08/22/2023: 15/1.45 10/31/2024: Two 9/2.42 GFR, 08/22/2023: 59 Liver function test, 10/04/2024: Unremarkable TBI/AST/ALT/AP, 10/04/2024: 0.6/410/335/31, 10/05/2024: 1.3/582/423/39, 10/31/2024: 3.6/54/98/117 TG/CHO L/LDL/HDL, 08/2023: 136/166/111/39 TSH, 08/23/2023: 4.25 DONAL, 08/23/2023: 1. No evidence of intracardiac source of embolus in the study conducted today. 2. Normal valves without significant masses or change vegetations were discernible. 3. No evidence of intra-atrial shunting by bubble study and color Doppler. 4. Mild atherosclerotic plaquing was visualized in the arch of the aorta without evidence of dissection in the visualized part CT head, 10/24/2024: 1. No intracranial hemorrhage or mass effect. 2. [id number]-vk-[id number] chronic microvascular ischemic changes. 3. Old bilateral basal ganglia lacunar infarcts. 4. Small bilateral mastoid effusions. CT abdomen/pelvis, 10/04/2024: 1. Extensive intra-abdominal free air concerning for perforated viscus. Surgical consultation is recommended. 2. Enteritis is seen in multiple loops of small bowel in the left hemiabdomen. 3. Moderate abdominopelvic ascites. 4. Small right pleural effusion. CTA neck, head, 08/22/2023:1. CTA head demonstrates no evidence of large vessel occlusion, aneurysm, or significant stenosis. 2. CTA neck demonstrates no evidence of carotid or vertebral dissection or significant stenosis. 3. No noncontrast CT head was performed. 4. Additional findings as detailed above MRI head, 08/23/2023: No acute infarct, intracranial hemorrhage, mass effect, or hydrocephalus. Moderate periventricular and deep subcortical white matter T2 hyperintensities which are nonspecific, but most likely related to sequela of chronic microvascular ischemic changes (I have reviewed the MRI films with our in-house radiologist, Dr. Black, the patient has bilateral multiple subacute/chronic infarcts) MRI head, 11/01/2024: No acute cerebrovascular ischemia. [id number] chronic microvascular ischemic changes. Bilateral mastoid effusions. Old bilateral basal ganglia / lopes radiata infarcts. vital signs Vital Sign Date Time Temp Pulse Resp B/P (MAP) Pulse Ox O2 Delivery O2 Flow Rate FiO2 11/03/24 08:53 119/61 11/03/24 08:52 105 11/03/24 08:43 25 100 30 11/03/24 08:00 Mechanical Ventilator+ 11/03/24 08:00 97.5 97.5 Total Intake and Output 11/02/24 11/02/24 11/03/24 15:00 23:00 07:00 Intake Total 770 ml 826 ml 659 ml Output Total 1000 ml 750 ml Balance 770 ml -174 ml -91 ml medications Current Medications Medications Dose Ordered Sig/Wally Route Start Time Stop Time Status Last Admin Dose Admin Fentanyl Citrate 250 ml @ 2.5 mls/hr Q24H IV 10/04/24 09:45 10/31/24 18:03 5 MLS/HR Ondansetron HCl 4 mg Q4HP PRN IV 10/04/24 11:45 Morphine Sulfate 2 mg Q4HPRN PRN IV 10/04/24 11:45 Cancel Nitroglycerin 0.4 mg Q5MINP PRN SL 10/04/24 11:45 Morphine Sulfate 2 mg Q30M PRN IV 10/04/24 11:45 Cancel Lorazepam 50 mg/ Sodium Chloride 50 ml @ 1 mls/hr Q24H IV 10/04/24 18:15 Cancel Amino Acids 0 ml @ 0 mls/hr PER PHARMACY IV 10/05/24 14:30 UNV Diagnostic Test (Pha) 1 strip Q6HR 10/05/24 18:00 11/03/24 06:00 1 STRIP Insulin Human Regular FOLLOW SLIDING SCALE Q6HR SC 10/05/24 18:00 11/03/24 00:00 2 UNITS Dextrose 50 ml UD IV 10/05/24 14:45 Meropenem 50 ml @ 17 mls/hr Q12HR IV 10/07/24 10:00 UNV Labetalol HCl 10 mg Q2HPRN PRN IV 10/08/24 09:30 10/31/24 12:26 10 MG Levalbuterol HCl 0.625 mg Q6HR NEB 10/13/24 12:00 11/03/24 06:27 0.625 MG Ipratropium [place] 0.5 mg Q6HR NEB 10/13/24 12:00 11/03/24 06:27 0.5 MG Norepinephrine Bitartrate 32 mg/ Sodium Chloride 250 ml @ 0.938 mls/ hr Q24H IV 10/14/24 10:15 Hold 10/30/24 21:15 0.938 MLS/HR Bumetanide 1 mg DAILY IV 10/22/24 10:00 11/03/24 08:53 1 MG Morphine Sulfate 2 mg Q4HPRN PRN IV 10/21/24 11:30 11/02/24 16:26 2 MG Nicardipine/ Sodium Chloride 200 ml @ 50 mls/hr Q4H IV 10/22/24 08:45 6/12/25 15:34 75 MLS/HR Acetaminophen 650 mg Q6HP PRN GT 10/22/24 09:00 11/02/24 16:25 650 MG Metoprolol Tartrate 1.25 mg Q6HPRN PRN IV 10/27/24 09:45 10/31/24 12:17 1.25 MG Sucralfate 1 gm BID@0600,2200 GT 10/28/24 22:00 11/03/24 06:00 1 GM Pantoprazole Sodium 50 ml @ 0 mls/hr Q0M IV 10/28/24 16:15 Cancel Lorazepam 1 mg ONCE PRN IV 10/30/24 11:00 Midazolam HCl 1 mg Q2HP PRN IV 10/30/24 16:45 11/01/24 15:56 1 MG Epoetin Roger-epbx 10,000 unit MWF@2100 SC 10/31/24 21:00 10/31/24 21:07 10,000 UNIT Meropenem 50 ml @ 17 mls/hr Q12HR IV 10/31/24 22:00 11/03/24 08:54 17 MLS/HR Vancomycin HCl 0 ml @ 0 mls/hr UD IV 10/31/24 12:45 Acetaminophen 650 mg Q6HP PRN [place] 10/31/24 13:30 Enteral Nutritional Formula 1,000 ml 30ML/HR GT 10/31/24 17:30 11/01/24 00:14 1,000 ML Sodium Chloride 10 ml QSHIFT@10,22 IV 10/31/24 22:00 11/03/24 08:53 10 ML Pantoprazole Sodium 80 mg BID IV 10/31/24 22:00 11/03/24 08:52 80 MG Metoprolol Tartrate 12.5 mg BID PO 11/01/24 10:00 11/03/24 08:52 12.5 MG Ibuprofen 600 mg Q6HP PRN PO 11/01/24 23:15 11/03/24 00:04 600 MG Metoclopramide HCl 5 mg Q8HR IV 11/02/24 14:00 11/03/24 06:00 5 MG Micafungin Sodium 100 mg/Sodium Chloride 100 ml @ 100 mls/hr DAILY IV 11/02/24 10:00 11/03/24 08:54 100 MLS/HR Fat Emulsion Intravenous 150 ml/Sodium Chloride 40 meq/ Sodium Acetate 40 meq/Sodium Phosphate 20 meq/ Potassium Acetate 40 meq/Magnesium Sulfate 16 meq/ Multivitamins 10 ml/Amino Acids/ Dextrose 1,619 ml @ 67 mls/hr [id number] IV 11/02/24 22:00 11/03/24 21:59 11/02/24 21:32 67 MLS/HR Enoxaparin Sodium 30 mg DAILY SC 11/03/24 10:00 UNV objective General: the patient is well developed and nourished. No acute distress. MENTAL STATUS: Subjective SPEECH, LANGUAGE, HIGHER CORTICAL FUNCTION: He does not vocalize/status post tracheostomy. CRANIAL NERVES:Intact visual ansari to confrontation (visual thread). Pupils are equal, round and reactive. EOMs full and conjugate. Mandibular strength intact. Facial muscles symmetrical and strength intact. SENSATION: Sensation to touch and pinprick is unremarkable MOTOR: Normal muscle bulk. No fasciculations. No abnormal movements or posturing. No spontaneous extremity movement REFLEXES: Deep tendon reflexes are increased bilaterally, clonus in both knees . No pathological reflexes. CEREBELLAR/COORDINATION: Deferred GAIT/STATION: deferred laboratory and microbiology Laboratory Tests 11/03/24 03:50 Test 11/03/24 03:50 Range/Units Serum Glucose 129 H 74-106 mg/dL Problem List Altered mental status Metabolic encephalopathy secondary to sepsis, septic shock, pneumonia Hypoxic encephalopathy Viscus perforation status post surgical repair GI bleeding Anemia Sepsis, septic shock Respiratory failure S/P tracheostomy Multiple strokes Secondary to history methamphetamine, cocaine, alcohol use History of alcohol abuse History of cocaine, methamphetamine abuse Hyperreflexia secondary to multiple strokes Assessment/Plan Monitoring Supportive treatment ICU care Stabilize vitals Respiratory support/vent management Follow-up labs IV antibiotics Resume Aspirin 81 mg daily later TPN Quit tobacco smoking No more alcohol, street drug abuse Stroke risk factors discussed More recommended per clinical course This medical document was created using an electronic medical record system with [employer] dictation system. Although this document has been carefully reviewed, there may still be some phonetic and typographical errors. These areas are purely typographical due to imperfections of the software programs, and do not reflect any compromise in the patient's medical care. Prognosis poor Dietary Evaluation Review Comments: 1. Continue TPN to meet at least 75% estimated needs 2. Continue current POC Expected Outcomes/Goals: FU 2-3 days to meet adequate energy & protein within 7 days of NPO Protein Calorie Malnutrition: Severe (rn) Plan discussed with: Other CC Plasma Assessment Blood Product Administration S: [id number] LEANDRO BLACK MD Nov 03, 2024 09:42
[2024-11-03] MEDS: ENOXAPARIN SOD 30 MG/0.3 ML SYRINGE SC SCH (10:05)
[2024-11-03] MEDS: SODIUM CHL 0.9% 1000 ML BAG XX ONE (14:25)
[2024-11-03] MEDS: ALBUMIN 25% 100 ML IV SCH (15:00)
--- NOTE | 2024-11-03 18:07 | DVHPN2 ---
Progress Note Date Seen: Nov 03, 2024 Resident Creating Document: KWASI MILLAN Medical Necessity Reason Pt with a Central, PICC or Fol: No The following are medically ne: Central Line, Gómez Catheter Reason for gómez catheter: Strict I&O Subjective Review of Systems Patient still ventilator dependent Cholecystectomy tube draining 100 mL bile H&H today 7.4/21.4 Started trickle feeding now on 20, target is to go 30 and then taper TPN Patient is being followed by Neurology, Pulmonary and Nephrology Postop day 7. S/P tracheostomy currently on ventilator dependent Leukocytosis resolved but patient still has fever Blood culture preliminary report grew yeast Objective vital signs Vital Sign Date Time Temp Pulse Resp B/P (MAP) Pulse Ox O2 Delivery O2 Flow Rate FiO2 11/03/24 16:27 95 24 145/67 (93) 100 30 11/03/24 16:00 Mechanical Ventilator+ 11/03/24 16:00 100.2 100.2 Total Intake and Output 11/02/24 11/02/24 11/03/24 15:00 23:00 07:00 Intake Total 770 ml 826 ml 659 ml Output Total 1000 ml 750 ml Balance 770 ml -174 ml -91 ml medications Current Medications Medications Dose Ordered Sig/Wally Route Start Time Stop Time Status Last Admin Dose Admin Fentanyl Citrate 250 ml @ 2.5 mls/hr Q24H IV 10/04/24 09:45 10/31/24 18:03 5 MLS/HR Ondansetron HCl 4 mg Q4HP PRN IV 10/04/24 11:45 Morphine Sulfate 2 mg Q4HPRN PRN IV 10/04/24 11:45 Cancel Nitroglycerin 0.4 mg Q5MINP PRN SL 10/04/24 11:45 Morphine Sulfate 2 mg Q30M PRN IV 10/04/24 11:45 Cancel Lorazepam 50 mg/ Sodium Chloride 50 ml @ 1 mls/hr Q24H IV 10/04/24 18:15 Cancel Amino Acids 0 ml @ 0 mls/hr PER PHARMACY IV 10/05/24 14:30 UNV Diagnostic Test (Pha) 1 strip Q6HR 10/05/24 18:00 11/03/24 17:22 1 STRIP Insulin Human Regular FOLLOW SLIDING SCALE Q6HR SC 10/05/24 18:00 11/03/24 17:23 2 UNITS Dextrose 50 ml UD IV 10/05/24 14:45 Meropenem 50 ml @ 17 mls/hr Q12HR IV 10/07/24 10:00 UNV Labetalol HCl 10 mg Q2HPRN PRN IV 10/08/24 09:30 10/31/24 12:26 10 MG Levalbuterol HCl 0.625 mg Q6HR NEB 10/13/24 12:00 11/03/24 12:55 0.625 MG Ipratropium [place] 0.5 mg Q6HR NEB 10/13/24 12:00 11/03/24 12:55 0.5 MG Norepinephrine Bitartrate 32 mg/ Sodium Chloride 250 ml @ 0.938 mls/ hr Q24H IV 10/14/24 10:15 Hold 10/30/24 21:15 0.938 MLS/HR Bumetanide 1 mg DAILY IV 10/22/24 10:00 11/03/24 08:53 1 MG Morphine Sulfate 2 mg Q4HPRN PRN IV 10/21/24 11:30 11/03/24 13:31 2 MG Nicardipine/ Sodium Chloride 200 ml @ 50 mls/hr Q4H IV 10/22/24 08:45 10/30/24 15:34 75 MLS/HR Acetaminophen 650 mg Q6HP PRN GT 10/22/24 09:00 11/02/24 16:25 650 MG Metoprolol Tartrate 1.25 mg Q6HPRN PRN IV 10/27/24 09:45 10/31/24 12:17 1.25 MG Sucralfate 1 gm BID@0600,2200 GT 10/28/24 22:00 11/03/24 06:00 1 GM Pantoprazole Sodium 50 ml @ 0 mls/hr Q0M IV 10/28/24 16:15 Cancel Lorazepam 1 mg ONCE PRN IV 10/30/24 11:00 Midazolam HCl 1 mg Q2HP PRN IV 10/30/24 16:45 11/03/24 15:29 1 MG Epoetin Roger-epbx 10,000 unit MWF@2100 SC 10/31/24 21:00 10/31/24 21:07 10,000 UNIT Vancomycin HCl 0 ml @ 0 mls/hr UD IV 10/31/24 12:45 Acetaminophen 650 mg Q6HP PRN [place] 10/31/24 13:30 Enteral Nutritional Formula 1,000 ml 30ML/HR GT 10/31/24 17:30 11/01/24 00:14 1,000 ML Sodium Chloride 10 ml QSHIFT@10,22 IV 10/31/24 22:00 11/03/24 08:53 10 ML Pantoprazole Sodium 80 mg BID IV 10/31/24 22:00 11/03/24 08:52 80 MG Metoprolol Tartrate 12.5 mg BID PO 11/01/24 10:00 11/03/24 08:52 12.5 MG Ibuprofen 600 mg Q6HP PRN PO 11/01/24 23:15 11/03/24 00:04 600 MG Metoclopramide HCl 5 mg Q8HR IV 11/02/24 14:00 11/03/24 13:52 5 MG Micafungin Sodium 100 mg/Sodium Chloride 100 ml @ 100 mls/hr DAILY IV 11/02/24 10:00 11/03/24 08:54 100 MLS/HR Fat Emulsion Intravenous 150 ml/Sodium Chloride 40 meq/ Sodium Acetate 40 meq/Sodium Phosphate 20 meq/ Potassium Acetate 40 meq/Magnesium Sulfate 16 meq/ Multivitamins 10 ml/Amino Acids/ Dextrose 1,619 ml @ 67 mls/hr [id number] IV 11/02/24 22:00 11/03/24 21:59 11/02/24 21:32 67 MLS/HR Enoxaparin Sodium 30 mg DAILY SC 11/03/24 10:00 11/03/24 10:05 30 MG Meropenem 50 ml @ 17 mls/hr Q12HR IV 11/03/24 22:00 laboratory and microbiology Laboratory Tests 11/03/24 03:50 Test 11/03/24 03:50 Range/Units Serum Glucose 129 H 74-106 mg/dL Microbiology Date/Time Source Procedure Growth Status 10/31/24 21:00 Voided Urine Urine Culture - Final Complete 10/31/24 10:50 Blood Blood Culture - Preliminary Resulted 10/18/24 09:21 Pleural Fluid Gram Stain - Final Complete 10/18/24 09:21 Pleural Fluid Body Fluid Culture - Final Complete 10/16/24 12:05 Bronchial Washings Gram Stain - Final Complete 10/16/24 12:05 Bronchial Washings Respiratory Culture - Final Complete 10/04/24 17:10 Nose MRSA Screen - Final Complete Problem List/Assessment/Plan Problem List/Assessment/Plan Assessment and plan (1) Cholecystitis (2) TIA (transient ischemic attack) (3) Altered mental status (4) Severe anemia (5) Perforated viscus (6) NSTEMI (non-ST elevated myocardial infarction) (7) GI bleed (8) Septic shock (9) Leukocytosis Plan Patient was started on trickle feeding, now on 20, plan is to go to 30, Plan is to taper down TPN feeding concerned about the patient's persistent elevation liver enzymes and suspected cholecystitis We will request surgical consult to follow up on the patient to decide an appropriate time for his cholecystectomy as that might be the source of his fevers Get MRI with MRCP Monitor CBC, CMP Continue IV ppi Protonix 40 mg q.12 hours and taper off the IV Protonix drip Hemodialysis as per Nephrology recommendation Plan discussed with Dr. Chanda Stoddard , nursing staff, Total time spent on patient evaluation, chart review, assessment and plan, discussion discussion >35 minutes Plan discussed with: Other (RN) My Orders My Orders Orders - KWASI MILLAN Procedure Category Date Status Time Meropenem 500mg Ivpb PHA 11/03/24 In Process (Merrem 500mg/Ns) 22:00 Complete Blood Count LAB 11/04/24 Verified 04:00 Vancomycin,Random LAB 11/04/24 Verified 04:00 Dietary Evaluation Review Comments: 1. Continue TPN to meet at least 75% estimated needs 2. Continue current POC Expected Outcomes/Goals: FU 2-3 days to meet adequate energy & protein within 7 days of NPO Protein Calorie Malnutrition: Severe (rn) CC Plasma Assessment Blood Product Administration S: [id number] KWASI MILLAN RESIDENT Nov 03, 2024 18:07
--- NOTE | 2024-11-03 18:52 | DVHPN2 ---
Progress Note - Dictate Date Seen: Nov 03, 2024 Medical Necessity Reason Pt with a Central, PICC or Fol: No The following are medically ne: Central Line, Gómez Catheter Reason for gómez catheter: Strict I&O vital signs Vital Sign Date Time Temp Pulse Resp B/P (MAP) Pulse Ox O2 Delivery O2 Flow Rate FiO2 11/03/24 18:30 98 24 128/66 (86) 99 11/03/24 18:10 30 11/03/24 18:00 Mechanical Ventilator+ 11/03/24 18:00 100.4 100.4 Total Intake and Output 11/02/24 11/02/24 11/03/24 15:00 23:00 07:00 Intake Total 770 ml 826 ml 659 ml Output Total 1000 ml 750 ml Balance 770 ml -174 ml -91 ml medications Current Medications Medications Dose Ordered Sig/Wally Route Start Time Stop Time Status Last Admin Dose Admin Fentanyl Citrate 250 ml @ 2.5 mls/hr Q24H IV 10/04/24 09:45 10/31/24 18:03 5 MLS/HR Ondansetron HCl 4 mg Q4HP PRN IV 10/04/24 11:45 Morphine Sulfate 2 mg Q4HPRN PRN IV 10/04/24 11:45 Cancel Nitroglycerin 0.4 mg Q5MINP PRN SL 10/04/24 11:45 Morphine Sulfate 2 mg Q30M PRN IV 10/04/24 11:45 Cancel Lorazepam 50 mg/ Sodium Chloride 50 ml @ 1 mls/hr Q24H IV 10/04/24 18:15 Cancel Amino Acids 0 ml @ 0 mls/hr PER PHARMACY IV 10/05/24 14:30 UNV Diagnostic Test (Pha) 1 strip Q6HR 10/05/24 18:00 11/03/24 17:22 1 STRIP Insulin Human Regular FOLLOW SLIDING SCALE Q6HR SC 10/05/24 18:00 11/03/24 17:23 2 UNITS Dextrose 50 ml UD IV 10/05/24 14:45 Meropenem 50 ml @ 17 mls/hr Q12HR IV 10/07/24 10:00 UNV Labetalol HCl 10 mg Q2HPRN PRN IV 10/08/24 09:30 10/31/24 12:26 10 MG Levalbuterol HCl 0.625 mg Q6HR NEB 10/13/24 12:00 11/03/24 18:01 0.625 MG Ipratropium [place] 0.5 mg Q6HR NEB 10/13/24 12:00 11/03/24 18:01 0.5 MG Norepinephrine Bitartrate 32 mg/ Sodium Chloride 250 ml @ 0.938 mls/ hr Q24H IV 10/14/24 10:15 Hold 10/30/24 21:15 0.938 MLS/HR Bumetanide 1 mg DAILY IV 10/22/24 10:00 11/03/24 08:53 1 MG Morphine Sulfate 2 mg Q4HPRN PRN IV 10/21/24 11:30 11/03/24 13:31 2 MG Nicardipine/ Sodium Chloride 200 ml @ 50 mls/hr Q4H IV 10/22/24 08:45 10/30/24 15:34 75 MLS/HR Acetaminophen 650 mg Q6HP PRN GT 10/22/24 09:00 11/02/24 16:25 650 MG Metoprolol Tartrate 1.25 mg Q6HPRN PRN IV 10/27/24 09:45 10/31/24 12:17 1.25 MG Sucralfate 1 gm BID@0600,2200 GT 10/28/24 22:00 11/03/24 06:00 1 GM Pantoprazole Sodium 50 ml @ 0 mls/hr Q0M IV 10/28/24 16:15 Cancel Lorazepam 1 mg ONCE PRN IV 10/30/24 11:00 Midazolam HCl 1 mg Q2HP PRN IV 10/30/24 16:45 11/03/24 15:29 1 MG Epoetin Roger-epbx 10,000 unit MWF@2100 SC 10/31/24 21:00 10/31/24 21:07 10,000 UNIT Vancomycin HCl 0 ml @ 0 mls/hr UD IV 10/31/24 12:45 Acetaminophen 650 mg Q6HP PRN HI 10/31/24 13:30 Enteral Nutritional Formula 1,000 ml 30ML/HR GT 10/31/24 17:30 11/01/24 00:14 1,000 ML Sodium Chloride 10 ml QSHIFT@,22 IV 10/31/24 22:00 11/03/24 08:53 10 ML Pantoprazole Sodium 80 mg BID IV 10/31/24 22:00 11/03/24 08:52 80 MG Metoprolol Tartrate 12.5 mg BID PO 11/01/24 10:00 11/03/24 08:52 12.5 MG Ibuprofen 600 mg Q6HP PRN PO 11/01/24 23:15 11/03/24 00:04 600 MG Metoclopramide HCl 5 mg Q8HR IV 11/02/24 14:00 11/03/24 13:52 5 MG Micafungin Sodium 100 mg/Sodium Chloride 100 ml @ 100 mls/hr DAILY IV 11/02/24 10:00 11/03/24 08:54 100 MLS/HR Fat Emulsion Intravenous 150 ml/Sodium Chloride 40 meq/ Sodium Acetate 40 meq/Sodium Phosphate 20 meq/ Potassium Acetate 40 meq/Magnesium Sulfate 16 meq/ Multivitamins 10 ml/Amino Acids/ Dextrose 1,619 ml @ 67 mls/hr [id number] IV 11/02/24 22:00 11/03/24 21:59 11/02/24 21:32 67 MLS/HR Enoxaparin Sodium 30 mg DAILY SC 11/03/24 10:00 11/03/24 10:05 30 MG Meropenem 50 ml @ 17 mls/hr Q12HR IV 11/03/24 22:00 laboratory and microbiology Laboratory Tests 11/03/24 03:50 Test 11/03/24 03:50 Range/Units Serum Glucose 129 H 74-106 mg/dL Assessment/Plan Impression Acute hypoxemic respiratory failure S/p tracheostomy Perforated viscus Septic shock Smoker Patient seen and examined in ICU Events On mechanical ventilation S/p tracheostomy PEEP 5, FiO2 30% Cultures obtained Blood growing lamar Labs and imaging reviewed ABG reviewed Management Vent support Titrate to maintain sats 90% or above Trach care per RT protocols Continue antibiotics and antifungals F/u cultures Bronchodilators Monitor renal function Monitor electrolytes Supplement as needed HD per nephrology Nutritional support Tube feedings DVT prophylaxis Critical care time 35 minutes Dietary Evaluation Review Comments: 1. Continue TPN to meet at least 75% estimated needs 2. Continue current POC Expected Outcomes/Goals: FU 2-3 days to meet adequate energy & protein within 7 days of NPO Protein Calorie Malnutrition: Severe (rn) Plan discussed with: Other (Rn) CC Plasma Assessment Blood Product Administration S: [id number] VALENTE DEE MD Nov 03, 2024 18:52
--- NOTE | 2024-11-03 19:07 | DVHPN2 ---
Progress Note Date Seen: Nov 03, 2024 Medical Necessity Reason Pt with a Central, PICC or Fol: No The following are medically ne: Central Line, Gómez Catheter Reason for gómez catheter: Strict I&O Subjective Patient reports: Other (Is awake) Review of Systems: Deferred Objective vital signs Vital Sign Date Time Temp Pulse Resp B/P (MAP) Pulse Ox O2 Delivery O2 Flow Rate FiO2 11/03/24 18:45 99 24 123/66 (85) 99 11/03/24 18:10 30 11/03/24 18:00 Mechanical Ventilator+ 11/03/24 18:00 100.4 100.4 Total Intake and Output 11/02/24 11/02/24 11/03/24 15:00 23:00 07:00 Intake Total 770 ml 826 ml 659 ml Output Total 1000 ml 750 ml Balance 770 ml -174 ml -91 ml medications Current Medications Medications Dose Ordered Sig/Wally Route Start Time Stop Time Status Last Admin Dose Admin Fentanyl Citrate 250 ml @ 2.5 mls/hr Q24H IV 10/04/24 09:45 10/31/24 18:03 5 MLS/HR Ondansetron HCl 4 mg Q4HP PRN IV 10/04/24 11:45 Morphine Sulfate 2 mg Q4HPRN PRN IV 10/04/24 11:45 Cancel Nitroglycerin 0.4 mg Q5MINP PRN SL 10/04/24 11:45 Morphine Sulfate 2 mg Q30M PRN IV 10/04/24 11:45 Cancel Lorazepam 50 mg/ Sodium Chloride 50 ml @ 1 mls/hr Q24H IV 10/04/24 18:15 Cancel Amino Acids 0 ml @ 0 mls/hr PER PHARMACY IV 10/05/24 14:30 UNV Diagnostic Test (Pha) 1 strip Q6HR 10/05/24 18:00 11/03/24 17:22 1 STRIP Insulin Human Regular FOLLOW SLIDING SCALE Q6HR SC 10/05/24 18:00 11/03/24 17:23 2 UNITS Dextrose 50 ml UD IV 10/05/24 14:45 Meropenem 50 ml @ 17 mls/hr Q12HR IV 10/07/24 10:00 UNV Labetalol HCl 10 mg Q2HPRN PRN IV 10/08/24 09:30 10/31/24 12:26 10 MG Levalbuterol HCl 0.625 mg Q6HR NEB 10/13/24 12:00 11/03/24 18:01 0.625 MG Ipratropium [place] 0.5 mg Q6HR NEB 10/13/24 12:00 11/03/24 18:01 0.5 MG Norepinephrine Bitartrate 32 mg/ Sodium Chloride 250 ml @ 0.938 mls/ hr Q24H IV 10/14/24 10:15 Hold 10/30/24 21:15 0.938 MLS/HR Bumetanide 1 mg DAILY IV 10/22/24 10:00 11/03/24 08:53 1 MG Morphine Sulfate 2 mg Q4HPRN PRN IV 10/21/24 11:30 11/03/24 13:31 2 MG Nicardipine/ Sodium Chloride 200 ml @ 50 mls/hr Q4H IV 10/22/24 08:45 10/30/24 15:34 75 MLS/HR Acetaminophen 650 mg Q6HP PRN GT 10/22/24 09:00 11/02/24 16:25 650 MG Metoprolol Tartrate 1.25 mg Q6HPRN PRN IV 10/27/24 09:45 10/31/24 12:17 1.25 MG Sucralfate 1 gm BID@0600,2200 GT 10/28/24 22:00 11/03/24 06:00 1 GM Pantoprazole Sodium 50 ml @ 0 mls/hr Q0M IV 10/28/24 16:15 Cancel Lorazepam 1 mg ONCE PRN IV 10/30/24 11:00 Midazolam HCl 1 mg Q2HP PRN IV 10/30/24 16:45 11/03/24 15:29 1 MG Epoetin Roger-epbx 10,000 unit MWF@2100 SC 10/31/24 21:00 10/31/24 21:07 10,000 UNIT Vancomycin HCl 0 ml @ 0 mls/hr UD IV 10/31/24 12:45 Acetaminophen 650 mg Q6HP PRN [place] 10/31/24 13:30 Enteral Nutritional Formula 1,000 ml 30ML/HR GT 10/31/24 17:30 11/01/24 00:14 1,000 ML Sodium Chloride 10 ml QSHIFT@10,22 IV 10/31/24:00 11/03/24 08:53 10 ML Pantoprazole Sodium 80 mg BID IV 10/31/24 22:00 11/03/24 08:52 80 MG Metoprolol Tartrate 12.5 mg BID PO 11/01/24 10:00 11/03/24 08:52 12.5 MG Ibuprofen 600 mg Q6HP PRN PO 11/01/24 23:15 11/03/24 00:04 600 MG Metoclopramide HCl 5 mg Q8HR IV 11/02/24 14:00 11/03/24 13:52 5 MG Micafungin Sodium 100 mg/Sodium Chloride 100 ml @ 100 mls/hr DAILY IV 11/02/24 10:00 11/03/24 08:54 100 MLS/HR Fat Emulsion Intravenous 150 ml/Sodium Chloride 40 meq/ Sodium Acetate 40 meq/Sodium Phosphate 20 meq/ Potassium Acetate 40 meq/Magnesium Sulfate 16 meq/ Multivitamins 10 ml/Amino Acids/ Dextrose 1,619 ml @ 67 mls/hr [id number] IV 11/02/24 22:00 11/03/24 21:59 11/02/24 21:32 67 MLS/HR Enoxaparin Sodium 30 mg DAILY SC 11/03/24 10:00 11/03/24 10:05 30 MG Meropenem 50 ml @ 17 mls/hr Q12HR IV 11/03/24 22:00 Examination: GENERAL:Normal, MSK:Abnormal, SKIN:Abnormal, NEURO:Normal laboratory and microbiology Laboratory Tests 11/03/24 03:50 Test 11/03/24 03:50 Range/Units Serum Glucose 129 H 74-106 mg/dL Microbiology Date/Time Source Procedure Growth Status 10/31/24 21:00 Voided Urine Urine Culture - Final Complete 10/31/24 10:50 Blood Blood Culture - Preliminary Resulted 10/18/24 09:21 Pleural Fluid Gram Stain - Final Complete 10/18/24 09:21 Pleural Fluid Body Fluid Culture - Final Complete 10/16/24 12:05 Bronchial Washings Gram Stain - Final Complete 10/16/24 12:05 Bronchial Washings Respiratory Culture - Final Complete 10/04/24 17:10 Nose MRSA Screen - Final Complete Problem List/Assessment/Plan Problem List/Assessment/Plan Acute kidney injury /ATN requiring acute inpatient hemodialysis Acute respiratory failure -> now trach to vent Perforated gastric ulcer status post exploratory laparoscopic surgery Hypokalemia Anemia due to chronic disease/inflammation tachycardia + Bcx fungemia recs Hemodialysis today dialysis catheter will be removed after dialysis given fungemia We will monitor him off dialysis Evaluate [employer] needs daily Plan discussed with: Other Dietary Evaluation Review Comments: 1. Continue TPN to meet at least 75% estimated needs 2. Continue current POC Expected Outcomes/Goals: FU 2-3 days to meet adequate energy & protein within 7 days of NPO Protein Calorie Malnutrition: Severe (rn) CC Plasma Assessment Blood Product Administration S: [id number] DAYANARA BLACKWOOD MD Nov 03, 2024 19:06
[2024-11-03] MEDS: MEROPENEM 500MG IVPB 50 ML IV SCH (22:05)
[2024-11-04] VITALS (106 sets, daily range): BP systolic 81–139; BP diastolic 36–74; PULSE 70–109; RESP 18–29; TEMP 98.7–100.2; O2SAT 92–100
[2024-11-04 04:26] LABS: Hematocrit 23.6 % (41.0-53.0); Hemoglobin 8.0 g/dL (13.5-17.5); Mean Corpuscular Hemoglobin 29.6 pg (28.0-32.0); Mean Corpuscular Volume 87.7 fL (80.0-100.0)
[2024-11-04 04:31] LABS: Calcium 9.1 mg/dL (8.7-10.4); Chloride 101 mmol/L (98-107); Potassium 3.8 mmol/L (3.5-5.1); Sodium 139 mmol/L (136-145)
[2024-11-04 04:32] LABS: Anion Gap 12 (5-15); Carbon Dioxide 26 mmol/L (20-31)
[2024-11-04 04:37] LABS: BUN/Creatinine Ratio 14.8 (10.0-20.0); Blood Urea Nitrogen 46 mg/dL (9-23); Glucose 82 mg/dL (74-106)
[2024-11-04 05:09] LABS: Total Cells Counted 100.0 (100)
--- NOTE | 2024-11-04 09:33 | DVHPN2 ---
Subjective Patient continues to be encephalopathic. Following some commands Reviewed: Care Plan, H&P, Labs, Medications, Previous Orders, Radiology, Other (Consultants) Changes from previous H/P or p: No Changes General: Per HPI Objective Vitals Vital Signs Date Time Temp Pulse Resp B/P (MAP) Pulse Ox O2 Delivery O2 Flow Rate FiO2 11/04/24 09:00 99.9 82 21 107/47 (67) 98 99.9 11/04/24 08:00 30 11/04/24 08:00 Mechanical Ventilator+ Intake/Output Intake and Output 11/04/24 07:00 Intake Total 1513 ml Output Total 1500 ml Balance 13 ml IV Total 1138 ml Tube Feeding 375 ml Output Urine Total 1250 ml Drainage Total 250 ml General Appearance: Alert, Cooperative, mild distress, Other (Intubated and sedated) HEENT: Atraumatic, PERRLA Lungs: Other (Mechanical ventilation. Decreased breath sounds at bases) Cardiovascular: Normal S1, Normal S2, Other (Sinus tachycardia) Abdomen: Other (NG with bilious drainage now) Neuro: Other (Unable to assess) Skin: Dry, Intact, Wounds (Abdominal wound dry and intact), Other Psych/Mental Status: Other Medications Current Medications Medications Dose Ordered Sig/Wally Route Start Time Stop Time Status Last Admin Dose Admin Fentanyl Citrate 250 ml @ 2.5 mls/hr Q24H IV 10/04/24 09:45 10/31/24 18:03 5 MLS/HR Ondansetron HCl 4 mg Q4HP PRN IV 10/04/24 11:45 Morphine Sulfate 2 mg Q4HPRN PRN IV 10/04/24 11:45 Cancel Nitroglycerin 0.4 mg Q5MINP PRN SL 10/04/24 11:45 Morphine Sulfate 2 mg Q30M PRN IV 10/04/24 11:45 Cancel Lorazepam 50 mg/ Sodium Chloride 50 ml @ 1 mls/hr Q24H IV 10/04/24 18:15 Cancel Amino Acids 0 ml @ 0 mls/hr PER PHARMACY IV 10/05/24 14:30 UNV Diagnostic Test (Pha) 1 strip Q6HR 10/05/24 18:00 11/04/24 06:08 1 STRIP Insulin Human Regular FOLLOW SLIDING SCALE Q6HR SC 10/05/24 18:00 11/03/24 17:23 2 UNITS Dextrose 50 ml UD IV 10/05/24 14:45 Meropenem 50 ml @ 17 mls/hr Q12HR IV 10/07/24 10:00 UNV Labetalol HCl 10 mg Q2HPRN PRN IV 10/08/24 09:30 10/31/24 12:26 10 MG Levalbuterol HCl 0.625 mg Q6HR NEB 10/13/24 12:00 11/04/24 06:11 0.625 MG Ipratropium [place] 0.5 mg Q6HR NEB 10/13/24 12:00 11/04/24 06:11 0.5 MG Norepinephrine Bitartrate 32 mg/ Sodium Chloride 250 ml @ 0.938 mls/ hr Q24H IV 10/14/24 10:15 Hold 10/30/24 21:15 0.938 MLS/HR Bumetanide 1 mg DAILY IV 10/22/24 10:00 11/03/24 08:53 1 MG Morphine Sulfate 2 mg Q4HPRN PRN IV 10/21/24 11:30 11/03/24 13:31 2 MG Nicardipine/ Sodium Chloride 200 ml @ 50 mls/hr Q4H IV 10/22/24 08:45 10/30/24 15:34 75 MLS/HR Acetaminophen 650 mg Q6HP PRN GT 10/22/24 09:00 11/03/24 21:04 650 MG Metoprolol Tartrate 1.25 mg Q6HPRN PRN IV 10/27/24 09:45 10/31/24 12:17 1.25 MG Sucralfate 1 gm BID@0600,2200 GT 10/28/24 22:00 11/04/24 06:08 1 GM Pantoprazole Sodium 50 ml @ 0 mls/hr Q0M IV 10/28/24 16:15 Cancel Lorazepam 1 mg ONCE PRN IV 10/30/24 11:00 Midazolam HCl 1 mg Q2HP PRN IV 10/30/24 16:45 11/03/24 15:29 1 MG Epoetin Roger-epbx 10,000 unit MWF@2100 SC 10/31/24 21:00 11/03/24 21:03 10,000 UNIT Vancomycin HCl 0 ml @ 0 mls/hr UD IV 10/31/24 12:45 Acetaminophen 650 mg Q6HP PRN [place] 10/31/24 13:30 Enteral Nutritional Formula 1,000 ml 30ML/HR GT 10/31/24 17:30 11/01/24 00:14 1,000 ML Sodium Chloride 10 ml QSHIFT@10,22 IV 10/31/24 22:00 11/03/24 22:06 10 ML Pantoprazole Sodium 80 mg BID IV 10/31/24 22:00 11/03/24 22:03 80 MG Metoprolol Tartrate 12.5 mg BID PO 11/01/24 10:00 11/03/24 22:04 12.5 MG Ibuprofen 600 mg Q6HP PRN PO 11/01/24 23:15 11/03/24 00:04 600 MG Metoclopramide HCl 5 mg Q8HR IV 11/02/24 14:00 11/04/24 06:08 5 MG Micafungin Sodium 100 mg/Sodium Chloride 100 ml @ 100 mls/hr DAILY IV 11/02/24 10:00 11/04/24 08:59 100 MLS/HR Enoxaparin Sodium 30 mg DAILY SC 11/03/24 10:00 11/03/24 10:05 30 MG Meropenem 50 ml @ 17 mls/hr Q12HR IV 11/03/24 22:00 11/03/24 22:05 17 MLS/HR Laboratory Results Laboratory Tests 11/04/24 03:06 Chemistry Test 11/04/24 03:06 Calcium Level 9.1 mg/dL (8.7-10.4) Urinalysis Test 10/05/24 15:05 10/11/24 18:00 10/26/24 20:33 Urine Mucus Few (None Seen) Urine Total Protein 85.0 mg/dL (1-14) H Urine Creatinine 48.05 mg/dL (30.0-125.0) Urine Sodium 76 mmol/L (40-220) Urine Color Light-yellow (Yellow) Urine Clarity Clear (Clear) Urine pH 7.0 (5.0-9.0) Urine Specific [place] 1.014 (1.001-1.035) Urine Protein 1+ (Negative) H Urine Ketones Negative (Negative) Urine Blood 1+ /uL (Negative) H Urine Nitrite Negative (Negative) Urine Bilirubin Negative (Negative) Urine Urobilinogen Normal mg/dL (Negative) Urine Leukocyte Esterase Negative /uL (Negative) Urine RBC 1 /hpf (0 - 3) Urine Microscopic WBC 3 /HPF (0-3) Urine Squamous Epithelial Cells None seen /hpf (<5) Urine Bacteria Few /hpf (None Seen) H Urine Glucose Normal mg/dL (Normal) Microbiology Microbiology Date/Time Source Procedure Growth Status 10/31/24 21:00 Voided Urine Urine Culture - Final Complete 10/31/24 10:50 Blood Blood Culture - Preliminary Resulted 10/18/24 09:21 Pleural Fluid Gram Stain - Final Complete 10/18/24 09:21 Pleural Fluid Body Fluid Culture - Final Complete 10/16/24 12:05 Bronchial Washings Gram Stain - Final Complete 10/16/24 12:05 Bronchial Washings Respiratory Culture - Final Complete 10/04/24 17:10 Nose MRSA Screen - Final Complete Labs and/or images reviewed: Labs reviewed by me, Image(s) reviewed by me Assessment/Plan Assessment/Plan Impression: -severe septic shock -pneumoperitoneum secondary to perforated gastric ulcer -acute kidney injury, hemodynamically mediated, probable VMN -acute hypoxic respiratory failure -shock liver -nicotine dependence -history of CVA -right upper extremity DVT -multifocal pneumonia, probable Gram-positive/Gram-negative etiology -anemia secondary to nutrition, renal failure -bilateral pleural effusions -small left pneumothorax -Failure of ventilator weaning, status post tracheostomy -fungemia Plan: Events: Patient noted to have use growing in blood with preliminary results yesterday. Plans for HD today. Discussed case with Nephrology. Plans for HD catheter removal, a line removal, with possible removal of PICC line if patient can tolerate being off of TPN. Plans to repeat blood cultures after line holiday. Re-evaluate in of questionable DVT to right upper extremity and jugular area. Only noted superficial thrombus to cephalic vein. -we will weaned off TPN today and increase G-tube feeding -GI consultation: Recommendations reviewed. Patient placed on Protonix drip -f start low-dose metoprolol tartrate -antibiotic therapy: Zosyn, Zyvox -nephrology consultation: Recommendations reviewed. Patient received HD yesterday -Continue to hold anticoagulation: Thrombocytopenic with platelet count [id number] -repeat labs, chest x-ray, ABG in a.m. -Discussed plan of care with . All questions answered. Critical care time spent with patient discussing and formulating plan of care: 90 minutes. This does not include time spent performing procedures. This medical document was created using an electronic medical record system with [employer] dictation system. Although this document has been carefully reviewed, there may still be some phonetic and typographical errors. These areas are purely typographical due to imperfections of the software programs, and do not reflect any compromise in the patient's medical care. Plan discussed with: Patient, Spouse, Other (RN) Date of Service: Nov 04, 2024 Billing Provider: CHEYENNE PIKE NP Common Visit Codes: 87818-[id number] CARE 30-74 MIN CHEYENNE PIKE NP Nov 04, 2024 09:33
--- NOTE | 2024-11-04 09:35 | DVHPN2 ---
Subjective Patient continues to be encephalopathic. Following some commands Reviewed: Care Plan, H&P, Labs, Medications, Previous Orders, Radiology, Other (Consultants) Changes from previous H/P or p: No Changes General: Per HPI Objective Vitals Vital Signs Date Time Temp Pulse Resp B/P (MAP) Pulse Ox O2 Delivery O2 Flow Rate FiO2 11/04/24 09:00 99.9 82 21 107/47 (67) 98 99.9 11/04/24 08:00 30 11/04/24 08:00 Mechanical Ventilator+ Intake/Output Intake and Output 11/04/24 07:00 Intake Total 1513 ml Output Total 1500 ml Balance 13 ml IV Total 1138 ml Tube Feeding 375 ml Output Urine Total 1250 ml Drainage Total 250 ml General Appearance: Alert, Cooperative, mild distress, Other (Intubated and sedated) HEENT: Atraumatic, PERRLA Lungs: Clear to auscultation, Normal air movement, Other (Mechanical ventilation. Decreased breath sounds at bases) Cardiovascular: Normal S1, Normal S2, Other (Sinus tachycardia) Abdomen: Other (NG with bilious drainage now) Extremities: Normal pulses Neuro: Other (Unable to assess) Skin: Dry, Intact, Wounds (Abdominal wound dry and intact), Other Psych/Mental Status: Other Medications Current Medications Medications Dose Ordered Sig/Wally Route Start Time Stop Time Status Last Admin Dose Admin Fentanyl Citrate 250 ml @ 2.5 mls/hr Q24H IV 10/04/24 09:45 10/31/24 18:03 5 MLS/HR Ondansetron HCl 4 mg Q4HP PRN IV 10/04/24 11:45 Morphine Sulfate 2 mg Q4HPRN PRN IV 10/04/24 11:45 Cancel Nitroglycerin 0.4 mg Q5MINP PRN SL 10/04/24 11:45 Morphine Sulfate 2 mg Q30M PRN IV 10/04/24 11:45 Cancel Lorazepam 50 mg/ Sodium Chloride 50 ml @ 1 mls/hr Q24H IV 10/04/24 18:15 Cancel Amino Acids 0 ml @ 0 mls/hr PER PHARMACY IV 10/05/24 14:30 UNV Diagnostic Test (Pha) 1 strip Q6HR 10/05/24 18:00 11/04/24 06:08 1 STRIP Insulin Human Regular FOLLOW SLIDING SCALE Q6HR SC 10/05/24 18:00 11/03/24 17:23 2 UNITS Dextrose 50 ml UD IV 10/05/24 14:45 Meropenem 50 ml @ 17 mls/hr Q12HR IV 10/07/24 10:00 UNV Labetalol HCl 10 mg Q2HPRN PRN IV 10/08/24 09:30 10/31/24 12:26 10 MG Levalbuterol HCl 0.625 mg Q6HR NEB 10/13/24 12:00 11/04/24 06:11 0.625 MG Ipratropium [place] 0.5 mg Q6HR NEB 10/13/24 12:00 11/04/24 06:11 0.5 MG Norepinephrine Bitartrate 32 mg/ Sodium Chloride 250 ml @ 0.938 mls/ hr Q24H IV 10/14/24 10:15 Hold 10/30/24 21:15 0.938 MLS/HR Bumetanide 1 mg DAILY IV 10/22/24 10:00 11/03/24 08:53 1 MG Morphine Sulfate 2 mg Q4HPRN PRN IV 10/21/24 11:30 11/03/24 13:31 2 MG Nicardipine/ Sodium Chloride 200 ml @ 50 mls/hr Q4H IV 10/22/24 08:45 10/30/24 15:34 75 MLS/HR Acetaminophen 650 mg Q6HP PRN GT 10/22/24 09:00 11/03/24 21:04 650 MG Metoprolol Tartrate 1.25 mg Q6HPRN PRN IV 10/27/24 09:45 10/31/24 12:17 1.25 MG Sucralfate 1 gm BID@0600,2200 GT 10/28/24 22:00 11/04/24 06:08 1 GM Pantoprazole Sodium 50 ml @ 0 mls/hr Q0M IV 10/28/24 16:15 Cancel Lorazepam 1 mg ONCE PRN IV 10/30/24 11:00 Midazolam HCl 1 mg Q2HP PRN IV 10/30/24 16:45 11/03/24 15:29 1 MG Epoetin Roger-epbx 10,000 unit MWF@2100 [place] 10/31/24 21:00 11/03/24 21:03 10,000 UNIT Vancomycin HCl 0 ml @ 0 mls/hr UD IV 10/31/24 12:45 Acetaminophen [address] 10/31/24 13:30 Enteral Nutritional Formula 1,000 ml 30ML/HR GT 10/31/24 17:30 11/01/24 00:14 1,000 ML Sodium Chloride 10 ml QSHIFT@10,22 IV 10/31/24 22:00 11/03/24 22:06 10 ML Pantoprazole Sodium 80 mg BID IV 10/31/24 22:00 11/03/24 22:03 80 MG Metoprolol Tartrate 12.5 mg BID PO 11/01/24 10:00 11/03/24 22:04 12.5 MG Ibuprofen 600 mg Q6HP PRN PO 11/01/24 23:15 11/03/24 00:04 600 MG Metoclopramide HCl 5 mg Q8HR IV 11/02/24 14:00 11/04/24 06:08 5 MG Micafungin Sodium 100 mg/Sodium Chloride 100 ml @ 100 mls/hr DAILY IV 11/02/24 10:00 11/04/24 08:59 100 MLS/HR Enoxaparin Sodium 30 mg DAILY SC 11/03/24 10:00 11/03/24 10:05 30 MG Meropenem 50 ml @ 17 mls/hr Q12HR IV 11/03/24 22:00 11/03/24 22:05 17 MLS/HR Laboratory Results Laboratory Tests 11/04/24 03:06 Chemistry Test 11/04/24 03:06 Calcium Level 9.1 mg/dL (8.7-10.4) Urinalysis Test 10/05/24 15:05 10/11/24 18:00 10/26/24 20:33 Urine Mucus Few (None Seen) Urine Total Protein 85.0 mg/dL (1-14) H Urine Creatinine 48.05 mg/dL (30.0-125.0) Urine Sodium 76 mmol/L (40-220) Urine Color Light-yellow (Yellow) Urine Clarity Clear (Clear) Urine pH 7.0 (5.0-9.0) Urine Specific [place] 1.014 (1.001-1.035) Urine Protein 1+ (Negative) H Urine Ketones Negative (Negative) Urine Blood 1+ /uL (Negative) H Urine Nitrite Negative (Negative) Urine Bilirubin Negative (Negative) Urine Urobilinogen Normal mg/dL (Negative) Urine Leukocyte Esterase Negative /uL (Negative) Urine RBC 1 /hpf (0 - 3) Urine Microscopic WBC 3 /HPF (0-3) Urine Squamous Epithelial Cells None seen /hpf (<5) Urine Bacteria Few /hpf (None Seen) H Urine Glucose Normal mg/dL (Normal) Microbiology Microbiology Date/Time Source Procedure Growth Status 10/31/24 21:00 Voided Urine Urine Culture - Final Complete 10/31/24 10:50 Blood Blood Culture - Preliminary Resulted 10/18/24 09:21 Pleural Fluid Gram Stain - Final Complete 10/18/24 09:21 Pleural Fluid Body Fluid Culture - Final Complete 10/16/24 12:05 Bronchial Washings Gram Stain - Final Complete 10/16/24 12:05 Bronchial Washings Respiratory Culture - Final Complete 10/04/24 17:10 Nose MRSA Screen - Final Complete Labs and/or images reviewed: Labs reviewed by me, Image(s) reviewed by me Assessment/Plan Assessment/Plan Impression: -severe septic shock -pneumoperitoneum secondary to perforated gastric ulcer -acute kidney injury, hemodynamically mediated, probable VMN -acute hypoxic respiratory failure -shock liver -nicotine dependence -history of CVA -right upper extremity DVT -multifocal pneumonia, probable Gram-positive/Gram-negative etiology -anemia secondary to nutrition, renal failure -bilateral pleural effusions -small left pneumothorax -Failure of ventilator weaning, status post tracheostomy -fungemia Plan: Events: No events overnight. Please increase tube feeding to goal rate. Pull PICC line for line vacation. CPAP daily -GI consultation: Recommendations reviewed. Patient placed on Protonix drip -Continue Metoprolol Tartrate 12.5mg -antibiotic therapy: Zosyn, Zyvox -nephrology consultation: Recommendations reviewed. Patient received HD yesterday -Continue to hold anticoagulation: Thrombocytopenic with platelet count [id number] -repeat labs, chest x-ray, ABG in a.m. -Discussed plan of care with . All questions answered. Critical care time spent with patient discussing and formulating plan of care: 40 minutes. This does not include time spent performing procedures. This medical document was created using an electronic medical record system with [employer] system. Although this document has been carefully reviewed, there may still be some phonetic and typographical errors. These areas are purely typographical due to imperfections of the software programs, and do not reflect any compromise in the patient's medical care. Plan discussed with: Patient, Other (RN) Date of Service: Nov 04, 2024 Billing Provider: CHEYENNE PIKE NP Common Visit Codes: 75543-[id number] CARE 30-74 MIN CHEYENNE PIKE NP Nov 04, 2024 09:35
--- NOTE | 2024-11-04 09:53 | DVHPN2 ---
Progress Note - Dictate Date Seen: Nov 04, 2024 Medical Necessity Reason Pt with a Central, PICC or Fol: No The following are medically ne: Central Line, Gómez Catheter Reason for gómez catheter: Strict I&O Subjective Mr. Perez is a 48 years old right-handed gentleman with a history of hypertension, dyslipidemia, multiple strokes, he was brought to the [facility] on 10/04/2024 with a chief company of recurrent syncope, in the hospital, the patient was found to have perforated viscus, and he went through surgical treatment, he was hospital course has been complicated with sepsis, septic shock, pneumonia, right upper extremity DVT. With appropriate treatment, the patient has improved, but he does not mentally recover as anticipated. I saw him on 08/23/2023 for TIA I have seen and examined the patient, discussed with his nurse, he is on vent, mentally better, more reactive, follow small verbal commands, he can move the left arm and right leg T-max: 101.4 Urinalysis, 08/22/2023: Unremarkable UDS, 08/22/2023: Negative WBC/Hb/PLT'/MCV, 08/22/2023: 10.8/13.1/184/87.4, 10/28/2024: 15/8/487/89.3 10/31/2024: 24.3/9.1/77/88.4 Troponin 1 high-sensitivity, 08/22/2023: 336, 273/300 BUNs/CR, 08/22/2023: 15/1.45 10/31/2024: Two 9/2.42 GFR, 08/22/2023: 59 Liver function test, 10/04/2024: Unremarkable TBI/AST/ALT/AP, 10/04/2024: 0.6/410/335/31, 10/05/2024: 1.3/582/423/39, 10/31/2024: 3.6/54/98/117 TG/CHO L/LDL/HDL, 08/2023: 136/166/111/39 TSH, 08/23/2023: 4.25 DONAL, 08/23/2023: 1. No evidence of intracardiac source of embolus in the study conducted today. 2. Normal valves without significant masses or change vegetations were discernible. 3. No evidence of intra-atrial shunting by bubble study and color Doppler. 4. Mild atherosclerotic plaquing was visualized in the arch of the aorta without evidence of dissection in the visualized part CT head, 10/24/2024: 1. No intracranial hemorrhage or mass effect. 2. [id number] chronic microvascular ischemic changes. 3. Old bilateral basal ganglia lacunar infarcts. 4. Small bilateral mastoid effusions. CT abdomen/pelvis, 10/04/2024: 1. Extensive intra-abdominal free air concerning for perforated viscus. Surgical consultation is recommended. 2. Enteritis is seen in multiple loops of small bowel in the left hemiabdomen. 3. Moderate abdominopelvic ascites. 4. Small right pleural effusion. CTA neck, head, 08/22/2023:1. CTA head demonstrates no evidence of large vessel occlusion, aneurysm, or significant stenosis. 2. CTA neck demonstrates no evidence of carotid or vertebral dissection or significant stenosis. 3. No noncontrast CT head was performed. 4. Additional findings as detailed above MRI head, 08/23/2023: No acute infarct, intracranial hemorrhage, mass effect, or hydrocephalus. Moderate periventricular and deep subcortical white matter T2 hyperintensities which are nonspecific, but most likely related to sequela of chronic microvascular ischemic changes (I have reviewed the MRI films with our in-house radiologist, Dr. Black, the patient has bilateral multiple subacute/chronic infarcts) MRI head, 11/01/2024: No acute cerebrovascular ischemia. Rnlr-du-[id number] chronic microvascular ischemic changes. Bilateral mastoid effusions. Old bilateral basal ganglia / lopes radiata infarcts. vital signs Vital Sign Date Time Temp Pulse Resp B/P (MAP) Pulse Ox O2 Delivery O2 Flow Rate FiO2 11/04/24 09:33 95 23 109/59 (76) 99 30 11/04/24 09:00 99.9 99.9 11/04/24 08:00 Mechanical Ventilator+ Total Intake and Output 11/03/24 11/03/24 11/04/24 15:00 23:00 07:00 Intake Total 686 ml 577 ml 250 ml Output Total 1000 ml 500 ml Balance 686 ml -423 ml -250 ml medications Current Medications Medications Dose Ordered Sig/Wally Route Start Time Stop Time Status Last Admin Dose Admin Ondansetron HCl 4 mg Q4HP PRN IV 10/04/24 11:45 Morphine Sulfate 2 mg Q4HPRN PRN IV 10/04/24 11:45 Cancel Nitroglycerin 0.4 mg Q5MINP PRN SL 10/04/24 11:45 Morphine Sulfate 2 mg Q30M PRN IV 10/04/24 11:45 Cancel Lorazepam 50 mg/ Sodium Chloride 50 ml @ 1 mls/hr Q24H IV 10/04/24 18:15 Cancel Amino Acids 0 ml @ 0 mls/hr PER PHARMACY IV 10/05/24 14:30 UNV Diagnostic Test (Pha) 1 strip Q6HR 10/05/24 18:00 11/04/24 06:08 1 STRIP Insulin Human Regular FOLLOW SLIDING SCALE Q6HR SC 10/05/24 18:00 11/03/24 17:23 2 UNITS Dextrose 50 ml UD IV 10/05/24 14:45 Meropenem 50 ml @ 17 mls/hr Q12HR IV 10/07/24 10:00 UNV Labetalol HCl 10 mg Q2HPRN PRN IV 10/08/24 09:30 10/31/24 12:26 10 MG Levalbuterol HCl 0.625 mg Q6HR NEB 10/13/24 12:00 11/04/24 06:11 0.625 MG Ipratropium [place] 0.5 mg Q6HR NEB 10/13/24 12:00 11/04/24 06:11 0.5 MG Norepinephrine Bitartrate 32 mg/ Sodium Chloride 250 ml @ 0.938 mls/ hr Q24H IV 10/14/24 10:15 Hold 10/30/24 21:15 0.938 MLS/HR Bumetanide 1 mg DAILY IV 10/22/24 10:00 11/03/24 08:53 1 MG Morphine Sulfate 2 mg Q4HPRN PRN IV 10/21/24 11:30 11/03/24 13:31 2 MG Nicardipine/ Sodium Chloride 200 ml @ 50 mls/hr Q4H IV 10/22/24 08:45 10/30/24 15:34 75 MLS/HR Acetaminophen 650 mg Q6HP PRN GT 10/22/24 09:00 11/03/24 21:04 650 MG Metoprolol Tartrate 1.25 mg Q6HPRN PRN IV 10/27/24 09:45 10/31/24 12:17 1.25 MG Sucralfate 1 gm BID@0600,2200 GT 10/28/24 22:00 11/04/24 06:08 1 GM Pantoprazole Sodium 50 ml @ 0 mls/hr Q0M IV 10/28/24 16:15 Cancel Lorazepam 1 mg ONCE PRN IV 10/30/24 11:00 Midazolam HCl 1 mg Q2HP PRN IV 10/30/24 16:45 11/03/24 15:29 1 MG Epoetin Roger-epbx 10,000 unit MWF@2100 SC 10/31/24 21:00 11/03/24 21:03 10,000 UNIT Vancomycin HCl 0 ml @ 0 mls/hr UD IV 10/31/24 12:45 Acetaminophen 650 mg Q6HP PRN [place] 10/31/24 13:30 Enteral Nutritional Formula 1,000 ml 30ML/HR GT 10/31/24 17:30 11/01/24 00:14 1,000 ML Sodium Chloride 10 ml QSHIFT@10,22 IV 10/31/24 22:00 11/03/24 22:06 10 ML Pantoprazole Sodium 80 mg BID IV 10/31/24 22:00 11/03/24 22:03 80 MG Metoprolol Tartrate 12.5 mg BID PO 11/01/24 10:00 11/03/24 22:04 12.5 MG Ibuprofen 600 mg Q6HP PRN PO 11/01/24 23:15 11/03/24 00:04 600 MG Metoclopramide HCl 5 mg Q8HR IV 11/02/24 14:00 11/04/24 06:08 5 MG Micafungin Sodium 100 mg/Sodium Chloride 100 ml @ 100 mls/hr DAILY IV 11/02/24 10:00 11/04/24 08:59 100 MLS/HR Enoxaparin Sodium 30 mg DAILY SC 11/03/24 10:00 11/03/24 10:05 30 MG Meropenem 50 ml @ 17 mls/hr Q12HR IV 11/03/24 22:00 11/03/24 22:05 17 MLS/HR objective General: the patient is well developed and nourished. No acute distress. MENTAL STATUS: Subjective SPEECH, LANGUAGE, HIGHER CORTICAL FUNCTION: He does not vocalize/status post tracheostomy. CRANIAL NERVES:Intact visual ansari to confrontation (visual thread). Pupils are equal, round and reactive. EOMs full and conjugate. Mandibular strength intact. Facial muscles symmetrical and strength intact. SENSATION: Sensation to touch and pinprick is unremarkable MOTOR: Normal muscle bulk. No fasciculations. No abnormal movements or posturing. He moves left arm right leg REFLEXES: Deep tendon reflexes are increased bilaterally, clonus in both knees . No pathological reflexes. CEREBELLAR/COORDINATION: Deferred GAIT/STATION: deferred laboratory and microbiology Laboratory Tests 11/04/24 03:06 Test 11/04/24 03:06 Range/Units Serum Glucose 82 74-106 mg/dL Problem List Altered mental status Metabolic encephalopathy secondary to sepsis, septic shock, pneumonia Hypoxic encephalopathy Viscus perforation status post surgical repair GI bleeding Anemia Sepsis, septic shock Respiratory failure S/P tracheostomy Multiple strokes Secondary to history methamphetamine, cocaine, alcohol use History of alcohol abuse History of cocaine, methamphetamine abuse Hyperreflexia secondary to multiple strokes Assessment/Plan Monitoring Supportive treatment ICU care Stabilize vitals Respiratory support/vent management Follow-up labs IV antibiotics Resume Aspirin 81 mg daily later TPN Quit tobacco smoking No more alcohol, street drug abuse Stroke risk factors discussed More recommended per clinical course This medical document was created using an electronic medical record system with [employer]ation system. Although this document has been carefully reviewed, there may still be some phonetic and typographical errors. These areas are purely typographical due to imperfections of the software programs, and do not reflect any compromise in the patient's medical care. Prognosis poor Dietary Evaluation Review Comments: 1. Continue TPN to meet at least 75% estimated needs 2. Continue current POC Expected Outcomes/Goals: FU 2-3 days to meet adequate energy & protein within 7 days of NPO Protein Calorie Malnutrition: Severe (rn) Plan discussed with: Other CC Plasma Assessment Blood Product Administration S: [id number] LEANDRO BLACK MD Nov 04, 2024 09:53
[2024-11-04] MEDS: VANCOMYCIN 500mg/100mL 100 ML IV ONE (11:09)
--- NOTE | 2024-11-04 14:11 | DVHPN2 ---
Progress Note - Dictate Date Seen: Nov 04, 2024 Medical Necessity Reason Pt with a Central, PICC or Fol: No The following are medically ne: Central Line, Gómez Catheter Reason for gómez catheter: Strict I&O vital signs Vital Sign Date Time Temp Pulse Resp B/P (MAP) Pulse Ox O2 Delivery O2 Flow Rate FiO2 11/04/24 14:00 22 100 Mechanical Ventilator+ 30 30 11/04/24 12:00 100.2 75 97/45 (62) 100.2 Total Intake and Output 11/03/24 11/03/24 11/04/24 14:59 22:59 06:59 Intake Total 686 ml 644 ml 250 ml Output Total 1000 ml 500 ml Balance 686 ml -356 ml -250 ml medications Current Medications Medications Dose Ordered Sig/Wally Route Start Time Stop Time Status Last Admin Dose Admin Ondansetron HCl 4 mg Q4HP PRN IV 10/04/24 11:45 Morphine Sulfate 2 mg Q4HPRN PRN IV 10/04/24 11:45 Cancel Nitroglycerin 0.4 mg Q5MINP PRN SL 10/04/24 11:45 Morphine Sulfate 2 mg Q30M PRN IV 10/04/24 11:45 Cancel Lorazepam 50 mg/ Sodium Chloride 50 ml @ 1 mls/hr Q24H IV 10/04/24 18:15 Cancel Amino Acids 0 ml @ 0 mls/hr PER PHARMACY IV 10/05/24 14:30 UNV Diagnostic Test (Pha) 1 strip Q6HR 10/05/24 18:00 11/04/24 11:31 1 STRIP Insulin Human Regular FOLLOW SLIDING SCALE Q6HR SC 10/05/24 18:00 11/03/24 17:23 2 UNITS Dextrose 50 ml UD IV 10/05/24 14:45 Meropenem 50 ml @ 17 mls/hr Q12HR IV 10/07/24 10:00 UNV Labetalol HCl 10 mg Q2HPRN PRN IV 10/08/24 09:30 10/31/24 12:26 10 MG Levalbuterol HCl 0.625 mg Q6HR NEB 10/13/24 12:00 11/04/24 12:00 0.625 MG Ipratropium [place] 0.5 mg Q6HR NEB 10/13/24 12:00 11/04/24 12:00 0.5 MG Norepinephrine Bitartrate 32 mg/ Sodium Chloride 250 ml @ 0.938 mls/ hr Q24H IV 10/14/24 10:15 Hold 10/30/24 21:15 0.938 MLS/HR Bumetanide 1 mg DAILY IV 10/22/24 10:00 11/04/24 09:50 1 MG Morphine Sulfate 2 mg Q4HPRN PRN IV 10/21/24 11:30 11/03/24 13:31 2 MG Nicardipine/ Sodium Chloride 200 ml @ 50 mls/hr Q4H IV 10/22/24 08:45 10/30/24 15:34 75 MLS/HR Acetaminophen 650 mg Q6HP PRN GT 10/22/24 09:00 11/03/24 21:04 650 MG Metoprolol Tartrate 1.25 mg Q6HPRN PRN IV 10/27/24 09:45 10/31/24 12:17 1.25 MG Sucralfate 1 gm BID@0600,2200 GT 10/28/24 22:00 11/04/24 06:08 1 GM Pantoprazole Sodium 50 ml @ 0 mls/hr Q0M IV 10/28/24 16:15 Cancel Lorazepam 1 mg ONCE PRN IV 10/30/24 11:00 Midazolam HCl 1 mg Q2HP PRN IV 10/30/24 16:45 11/03/24 15:29 1 MG Epoetin Roger-epbx 10,000 unit MWF@2100 SC 10/31/24 21:00 11/03/24 21:03 10,000 UNIT Vancomycin HCl 0 ml @ 0 mls/hr UD IV 10/31/24 12:45 Acetaminophen 650 mg Q6HP PRN [place] 10/31/24 13:30 Enteral Nutritional Formula 1,000 ml 30ML/HR GT 10/31/24 17:30 11/01/24 00:14 1,000 ML Sodium Chloride 10 ml QSHIFT@10,22 IV 10/31/24 22:00 11/04/24 09:52 10 ML Pantoprazole Sodium 80 mg BID IV 10/31/24 22:00 11/04/24 09:51 80 MG Metoprolol Tartrate 12.5 mg BID PO 11/01/24 10:00 11/04/24 09:52 12.5 MG Ibuprofen 600 mg Q6HP PRN PO 11/01/24 23:15 11/03/24 00:04 600 MG Metoclopramide HCl 5 mg Q8HR IV 11/02/24 14:00 11/04/24 13:10 5 MG Micafungin Sodium 100 mg/Sodium Chloride 100 ml @ 100 mls/hr DAILY IV 11/02/24 10:00 11/04/24 08:59 100 MLS/HR Enoxaparin Sodium 30 mg DAILY SC 11/03/24 10:00 11/04/24 09:53 30 MG Meropenem 50 ml @ 17 mls/hr Q12HR IV 11/03/24 22:00 11/04/24 09:51 17 MLS/HR laboratory and microbiology Laboratory Tests 11/04/24 03:06 Test 11/04/24 03:06 Range/Units Serum Glucose 82 74-106 mg/dL Assessment/Plan Impression Acute hypoxemic respiratory failure S/p tracheostomy Perforated viscus Septic shock Smoker Patient seen and examined in ICU Events On mechanical ventilation S/p tracheostomy PEEP 5, FiO2 30% Cultures obtained Blood growing lamar Labs and imaging reviewed ABG reviewed Management Vent support as needed Titrate to maintain sats 90% or above Transition to trache collar Trache care per RT protocols Continue antibiotics and antifungals F/u cultures Bronchodilators Monitor renal function Monitor electrolytes Supplement as needed HD per nephrology Nutritional support Tube feedings DVT prophylaxis Critical care time 35 minutes Dietary Evaluation Review Comments: 1. Continue TPN to meet at least 75% estimated needs 2. Continue current POC Expected Outcomes/Goals: FU 2-3 days to meet adequate energy & protein within 7 days of NPO Protein Calorie Malnutrition: Severe (rn) Plan discussed with: Other (Rn) CC Plasma Assessment Blood Product Administration S: [id number] VALENTE DEE MD Nov 04, 2024 14:11
--- NOTE | 2024-11-04 16:54 | DVHPN2 ---
Progress Note Date Seen: Nov 04, 2024 Resident Creating Document: KWASI MILLAN Medical Necessity Reason Pt with a Central, PICC or Fol: No The following are medically ne: Central Line, Gómez Catheter Reason for gómez catheter: Strict I&O Subjective Review of Systems Patient was still running low-grade fever All the central line was including HGB line was taken off due to Milady in the blood Started NG tube feeding Had 2 bowel movement yesterday Plan is to put patient on trach collar tomorrow Cholecystectomy tube drainage around 50 mL noted Objective vital signs Vital Sign Date Time Temp Pulse Resp B/P (MAP) Pulse Ox O2 Delivery O2 Flow Rate FiO2 11/04/24 16:14 93 26 139/70 (93) 99 30 11/04/24 16:00 Mechanical Ventilator+ 11/04/24 16:00 99.3 99.3 Total Intake and Output 11/03/24 11/03/24 11/04/24 15:00 23:00 07:00 Intake Total 686 ml 577 ml 250 ml Output Total 1000 ml 500 ml Balance 686 ml -423 ml -250 ml medications Current Medications Medications Dose Ordered Sig/Wally Route Start Time Stop Time Status Last Admin Dose Admin Ondansetron HCl 4 mg Q4HP PRN IV 10/04/24 11:45 Morphine Sulfate 2 mg Q4HPRN PRN IV 10/04/24 11:45 Cancel Nitroglycerin 0.4 mg Q5MINP PRN SL 10/04/24 11:45 Morphine Sulfate 2 mg Q30M PRN IV 10/04/24 11:45 Cancel Lorazepam 50 mg/ Sodium Chloride 50 ml @ 1 mls/hr Q24H IV 10/04/24 18:15 Cancel Amino Acids 0 ml @ 0 mls/hr PER PHARMACY IV 10/05/24 14:30 UNV Diagnostic Test (Pha) 1 strip Q6HR 10/05/24 18:00 11/04/24 11:31 1 STRIP Insulin Human Regular FOLLOW SLIDING SCALE Q6HR SC 10/05/24 18:00 11/03/24 17:23 2 UNITS Dextrose 50 ml UD IV 10/05/24 14:45 Meropenem 50 ml @ 17 mls/hr Q12HR IV 10/07/24 10:00 UNV Labetalol HCl 10 mg Q2HPRN PRN IV 10/08/24 09:30 10/31/24 12:26 10 MG Levalbuterol HCl 0.625 mg Q6HR NEB 10/13/24 12:00 11/04/24 12:00 0.625 MG Ipratropium [place] 0.5 mg Q6HR NEB 10/13/24 12:00 11/04/24 12:00 0.5 MG Norepinephrine Bitartrate 32 mg/ Sodium Chloride 250 ml @ 0.938 mls/ hr Q24H IV 10/14/24 10:15 Hold 10/30/24 21:15 0.938 MLS/HR Bumetanide 1 mg DAILY IV 10/22/24 10:00 11/04/24 09:50 1 MG Morphine Sulfate 2 mg Q4HPRN PRN IV 10/21/24 11:30 11/03/24 13:31 2 MG Nicardipine/ Sodium Chloride 200 ml @ 50 mls/hr Q4H IV 10/22/24 08:45 10/30/24 15:34 75 MLS/HR Acetaminophen 650 mg Q6HP PRN GT 10/22/24 09:00 11/03/24 21:04 650 MG Metoprolol Tartrate 1.25 mg Q6HPRN PRN IV 10/27/24 09:45 10/31/24 12:17 1.25 MG Sucralfate 1 gm BID@0600,2200 GT 10/28/24 22:00 11/04/24 06:08 1 GM Pantoprazole Sodium 50 ml @ 0 mls/hr Q0M IV 10/28/24 16:15 Cancel Lorazepam 1 mg ONCE PRN IV 10/30/24 11:00 Midazolam HCl 1 mg Q2HP PRN IV 10/30/24 16:45 11/03/24 15:29 1 MG Epoetin Roger-epbx 10,000 unit MWF@2100 SC 10/31/24 21:00 11/03/24 21:03 10,000 UNIT Vancomycin HCl 0 ml @ 0 mls/hr UD IV 10/31/24 12:45 Acetaminophen 650 mg Q6HP PRN [place] 10/31/24 13:30 Enteral Nutritional Formula 1,000 ml 30ML/HR GT 10/31/24 17:30 11/01/24 00:14 1,000 ML Sodium Chloride 10 ml QSHIFT@10,22 IV 10/31/24 22:00 11/04/24 09:52 10 ML Pantoprazole Sodium 80 mg BID IV 10/31/24 22:00 11/04/24 09:51 80 MG Metoprolol Tartrate 12.5 mg BID PO 11/01/24 10:00 11/04/24 09:52 12.5 MG Ibuprofen 600 mg Q6HP PRN PO 11/01/24 23:15 11/03/24 00:04 600 MG Metoclopramide HCl 5 mg Q8HR IV 11/02/24 14:00 11/04/24 13:10 5 MG Micafungin Sodium 100 mg/Sodium Chloride 100 ml @ 100 mls/hr DAILY IV 11/02/24 10:00 11/04/24 08:59 100 MLS/HR Enoxaparin Sodium 30 mg DAILY SC 11/03/24 10:00 11/04/24 09:53 30 MG Meropenem 50 ml @ 17 mls/hr Q12HR IV 11/03/24 22:00 11/04/24 09:51 17 MLS/HR laboratory and microbiology Laboratory Tests 11/04/24 03:06 Test 11/04/24 03:06 Range/Units Serum Glucose 82 74-106 mg/dL Microbiology Date/Time Source Procedure Growth Status 10/31/24 21:00 Voided Urine Urine Culture - Final Complete 10/31/24 10:50 Blood Blood Culture - Preliminary Resulted 10/18/24 09:21 Pleural Fluid Gram Stain - Final Complete 10/18/24 09:21 Pleural Fluid Body Fluid Culture - Final Complete 10/16/24 12:05 Bronchial Washings Gram Stain - Final Complete 10/16/24 12:05 Bronchial Washings Respiratory Culture - Final Complete 10/04/24 17:10 Nose MRSA Screen - Final Complete Problem List/Assessment/Plan Problem List/Assessment/Plan Assessment and plan (1) Cholecystitis (2) TIA (transient ischemic attack) (3) Altered mental status (4) Severe anemia (5) Perforated viscus (6) NSTEMI (non-ST elevated myocardial infarction) (7) GI bleed (8) Septic shock (9) Leukocytosis Plan Patient was started on NG tube feeding concerned about the patient's persistent elevation liver enzymes and suspected cholecystitis We will request surgical consult to follow up on the patient to decide an appropriate time for his cholecystectomy as that might be the source of his fevers Get MRI with MRCP Monitor CBC, CMP Continue IV ppi Protonix 80 mg q.12 hours and taper off the IV Protonix drip Continue current antibiotic Plan discussed with Dr. Chanda Stoddard , nursing staff, Total time spent on patient evaluation, chart review, assessment and plan, discussion discussion >35 minutes Plan discussed with: Patient, Other My Orders My Orders Orders - KWASI MILLAN Procedure Category Date Status Time Vancomycin,Random LAB 11/05/24 Verified 04:00 Creatinine LAB 11/05/24 Verified 04:00 Dietary Evaluation Review Comments: 1. Continue TPN to meet at least 75% estimated needs 2. Continue current POC Expected Outcomes/Goals: FU 2-3 days to meet adequate energy & protein within 7 days of NPO Protein Calorie Malnutrition: Severe (rn) CC Plasma Assessment Blood Product Administration S: [id number] KWASI MILLAN Nov 04, 2024 16:54
--- NOTE | 2024-11-04 19:12 | DVHPN2 ---
Progress Note Date Seen: Nov 04, 2024 Medical Necessity Reason Pt with a Central, PICC or Fol: No The following are medically ne: Central Line, Gómez Catheter Reason for gómez catheter: Strict I&O Subjective Patient reports: No new complaints Review of Systems: Deferred Objective vital signs Vital Sign Date Time Temp Pulse Resp B/P (MAP) Pulse Ox O2 Delivery O2 Flow Rate FiO2 11/04/24 18:45 107 28 138/66 (90) 99 11/04/24 18:00 Mechanical Ventilator+ 30 30 11/04/24 18:00 99.9 99.9 Total Intake and Output 11/03/24 11/03/24 11/04/24 15:00 23:00 07:00 Intake Total 686 ml 577 ml 250 ml Output Total 1000 ml 500 ml Balance 686 ml -423 ml -250 ml medications Current Medications Medications Dose Ordered Sig/Wally Route Start Time Stop Time Status Last Admin Dose Admin Ondansetron HCl 4 mg Q4HP PRN IV 10/04/24 11:45 Morphine Sulfate 2 mg Q4HPRN PRN IV 10/04/24 11:45 Cancel Nitroglycerin 0.4 mg Q5MINP PRN SL 10/04/24 11:45 Morphine Sulfate 2 mg Q30M PRN IV 10/04/24 11:45 Cancel Lorazepam 50 mg/ Sodium Chloride 50 ml @ 1 mls/hr Q24H IV 10/04/24 18:15 Cancel Amino Acids 0 ml @ 0 mls/hr PER PHARMACY IV 10/05/24 14:30 UNV Diagnostic Test (Pha) 1 strip Q6HR 10/05/24 18:00 11/04/24 17:46 1 STRIP Insulin Human Regular FOLLOW SLIDING SCALE Q6HR SC 10/05/24 18:00 11/03/24 17:23 2 UNITS Dextrose 50 ml UD IV 10/05/24 14:45 Meropenem 50 ml @ 17 mls/hr Q12HR IV 10/07/24 10:00 UNV Labetalol HCl 10 mg Q2HPRN PRN IV 10/08/24 09:30 10/31/24 12:26 10 MG Levalbuterol HCl 0.625 mg Q6HR NEB 10/13/24 12:00 11/04/24 18:14 0.625 MG Ipratropium [place] 0.5 mg Q6HR NEB 10/13/24 12:00 11/04/24 18:14 0.5 MG Norepinephrine Bitartrate 32 mg/ Sodium Chloride 250 ml @ 0.938 mls/ hr Q24H IV 10/14/24 10:15 Hold 10/30/24 21:15 0.938 MLS/HR Bumetanide 1 mg DAILY IV 10/22/24 10:00 11/04/24 09:50 1 MG Morphine Sulfate 2 mg Q4HPRN PRN IV 10/21/24 11:30 11/03/24 13:31 2 MG Nicardipine/ Sodium Chloride 200 ml @ 50 mls/hr Q4H IV 10/22/24 08:45 10/30/24 15:34 75 MLS/HR Acetaminophen 650 mg Q6HP PRN GT 10/22/24 09:00 11/03/24 21:04 650 MG Metoprolol Tartrate 1.25 mg Q6HPRN PRN IV 10/27/24 09:45 10/31/24 12:17 1.25 MG Sucralfate 1 gm BID@0600,2200 GT 10/28/24 22:00 11/04/24 06:08 1 GM Pantoprazole Sodium 50 ml @ 0 mls/hr Q0M IV 10/28/24 16:15 Cancel Lorazepam 1 mg ONCE PRN IV 10/30/24 11:00 Midazolam HCl 1 mg Q2HP PRN IV 10/30/24 16:45 11/03/24 15:29 1 MG Epoetin Roger-epbx 10,000 unit MWF@2100 SC 10/31/24 21:00 11/03/24 21:03 10,000 UNIT Vancomycin HCl 0 ml @ 0 mls/hr UD IV 10/31/24 12:45 Acetaminophen 650 mg Q6HP PRN [place] 10/31/24 13:30 Enteral Nutritional Formula 1,000 ml 30ML/HR GT 10/31/24 17:30 11/01/24 00:14 1,000 ML Sodium Chloride 10 ml QSHIFT@10,22 IV 10/31/24 22:00 11/04/24 09:52 10 ML Pantoprazole Sodium 80 mg BID IV 10/31/24 22:00 11/04/24 09:51 80 MG Metoprolol Tartrate 12.5 mg BID PO 11/01/24 10:00 11/04/24 09:52 12.5 MG Ibuprofen 600 mg Q6HP PRN PO 11/01/24 23:15 11/03/24 00:04 600 MG Metoclopramide HCl 5 mg Q8HR IV 11/02/24 14:00 11/04/24 13:10 5 MG Micafungin Sodium 100 mg/Sodium Chloride 100 ml @ 100 mls/hr DAILY IV 11/02/24 10:00 11/04/24 08:59 100 MLS/HR Enoxaparin Sodium 30 mg DAILY SC 11/03/24 10:00 11/04/24 09:53 30 MG Meropenem 50 ml @ 17 mls/hr Q12HR IV 11/03/24 22:00 11/04/24 09:51 17 MLS/HR laboratory and microbiology Laboratory Tests 11/04/24 03:06 Test 11/04/24 03:06 Range/Units Serum Glucose 82 74-106 mg/dL Microbiology Date/Time Source Procedure Growth Status 10/31/24 21:00 Voided Urine Urine Culture - Final Complete 10/31/24 10:50 Blood Blood Culture - Preliminary Resulted 10/18/24 09:21 Pleural Fluid Gram Stain - Final Complete 10/18/24 09:21 Pleural Fluid Body Fluid Culture - Final Complete 10/16/24 12:05 Bronchial Washings Gram Stain - Final Complete 10/16/24 12:05 Bronchial Washings Respiratory Culture - Final Complete 10/04/24 17:10 Nose MRSA Screen - Final Complete Problem List/Assessment/Plan Problem List/Assessment/Plan Acute kidney injury /ATN requiring acute inpatient hemodialysis Acute respiratory failure -> now trach Perforated gastric ulcer status post exploratory laparoscopic surgery Hypokalemia Anemia due to chronic disease/inflammation tachycardia + Bcx fungemia recs Hemodialysis 11/03 dialysis catheter removed after dialysis given fungemia We will monitor him off dialysis Evaluate [employer] needs daily Plan discussed with: Patient Dietary Evaluation Review Comments: 1. Continue TPN to meet at least 75% estimated needs 2. Continue current POC Expected Outcomes/Goals: FU 2-3 days to meet adequate energy & protein within 7 days of NPO Protein Calorie Malnutrition: Severe (rn) CC Plasma Assessment Blood Product Administration S: [id number] DAYANARA BLACKWOOD MD Nov 04, 2024 19:12
[2024-11-05] VITALS (106 sets, daily range): BP systolic 87–176; BP diastolic 44–86; PULSE 78–126; RESP 18–29; TEMP 99.6–100.9; O2SAT 93–100
[2024-11-05 04:39] LABS: Anion Gap 14 (5-15); BUN/Creatinine Ratio 13.9 (10.0-20.0); Carbon Dioxide 23 mmol/L (20-31); Chloride 103 mmol/L (98-107); Glucose 103 mg/dL (74-106); Potassium 3.9 mmol/L (3.5-5.1); Sodium 140 mmol/L (136-145); Total Protein 7.1 g/dL (5.7-8.2)
[2024-11-05 04:40] LABS: Blood Urea Nitrogen 56 mg/dL (9-23)
[2024-11-05 04:41] LABS: Alanine Aminotransferase 101 U/L (7-40); Albumin 3.1 g/dL (3.2-4.8); Alkaline Phosphatase 648 U/L (46-116); Bilirubin, Total 1.9 mg/dL (0.2-1.0); Calcium 8.7 mg/dL (8.7-10.4); Hemoglobin 7.9 g/dL (13.5-17.5)
[2024-11-05 04:43] LABS: Hematocrit 24.0 % (41.0-53.0); Mean Corpuscular Hemoglobin 29.3 pg (28.0-32.0); Mean Corpuscular Volume 88.8 fL (80.0-100.0)
[2024-11-05 05:19] LABS: Total Cells Counted 100.0 (100)
--- NOTE | 2024-11-05 05:28 | DVH ---
EXAM: XR Chest, 1 View CLINICAL INDICATION: Pain TECHNIQUE: Frontal view of the chest. COMPARISON: XR Chest dated 11/02/2024 FINDINGS: LUNGS AND PLEURAL SPACES: Right basilar atelectasis or pneumonia. No pneumothorax. HEART: Unremarkable. No cardiomegaly. MEDIASTINUM: Unremarkable. Normal mediastinal contour. BONES/JOINTS: Unremarkable. No acute fracture. TUBES, LINES AND DEVICES: Tracheostomy tube in satisfactory position. Enteric tube tip cannot be se en but is below the diaphragm. IMPRESSION: Right basilar atelectasis or pneumonia.
--- NOTE | 2024-11-05 09:49 | DVHPN2 ---
Subjective Patient continues to be encephalopathic. Following some commands Reviewed: Care Plan, H&P, Labs, Medications, Previous Orders, Radiology, Other (Consultants) Changes from previous H/P or p: No Changes General: Per HPI Objective Vitals Vital Signs Date Time Temp Pulse Resp B/P (MAP) Pulse Ox O2 Delivery O2 Flow Rate FiO2 11/05/24 08:45 145/79 11/05/24 07:31 85 21 100 30 11/05/24 06:00 Mechanical Ventilator+ 11/05/24 04:45 100.2 100.2 Intake/Output Intake and Output 11/05/24 07:00 Intake Total 825 ml Output Total 1741 ml Balance -916 ml Intake Oral 80 ml IV Total 300 ml Tube Feeding 445 ml Output Urine Total 1450 ml Stool Total 1 ml Drainage Total 290 ml General Appearance: Alert, Cooperative, mild distress, Other (Intubated and sedated) HEENT: Atraumatic, PERRLA Lungs: Clear to auscultation, Normal air movement, Other (Mechanical ventilation. Decreased breath sounds at bases) Cardiovascular: Normal S1, Normal S2, Other (Sinus tachycardia) Abdomen: Other (NG with bilious drainage now) Extremities: Normal pulses Neuro: Other (Unable to assess) Skin: Dry, Intact, Wounds (Abdominal wound dry and intact), Other Psych/Mental Status: Other Medications Current Medications Medications Dose Ordered Sig/Wally Route Start Time Stop Time Status Last Admin Dose Admin Ondansetron HCl 4 mg Q4HP PRN IV 10/04/24 11:45 Morphine Sulfate 2 mg Q4HPRN PRN IV 10/04/24 11:45 Cancel Nitroglycerin 0.4 mg Q5MINP PRN SL 10/04/24 11:45 Morphine Sulfate 2 mg Q30M PRN IV 10/04/24 11:45 Cancel Lorazepam 50 mg/ Sodium Chloride 50 ml @ 1 mls/hr Q24H IV 10/04/24 18:15 Cancel Amino Acids 0 ml @ 0 mls/hr PER PHARMACY IV 10/05/24 14:30 UNV Diagnostic Test (Pha) 1 strip Q6HR 10/05/24 18:00 11/05/24 06:00 1 STRIP Insulin Human Regular FOLLOW SLIDING SCALE Q6HR SC 10/05/24 18:00 11/03/24 17:23 2 UNITS Dextrose 50 ml UD IV 10/05/24 14:45 Meropenem 50 ml @ 17 mls/hr Q12HR IV 10/07/24 10:00 UNV Labetalol HCl 10 mg Q2HPRN PRN IV 10/08/24 09:30 10/31/24 12:26 10 MG Levalbuterol HCl 0.625 mg Q6HR NEB 10/13/24 12:00 11/05/24 06:38 0.625 MG Ipratropium [place] 0.5 mg Q6HR NEB 10/13/24 12:00 11/05/24 06:38 0.5 MG Norepinephrine Bitartrate 32 mg/ Sodium Chloride 250 ml @ 0.938 mls/ hr Q24H IV 10/14/24 10:15 Hold 10/30/24 21:15 0.938 MLS/HR Bumetanide 1 mg DAILY IV 10/22/24 10:00 11/04/24 09:50 1 MG Morphine Sulfate 2 mg Q4HPRN PRN IV 10/21/24 11:30 11/03/24 13:31 2 MG Nicardipine/ Sodium Chloride 200 ml @ 50 mls/hr Q4H IV 10/22/24 08:45 10/30/24 15:34 75 MLS/HR Acetaminophen 650 mg Q6HP PRN GT 10/22/24 09:00 11/05/24 02:19 650 MG Metoprolol Tartrate 1.25 mg Q6HPRN PRN IV 10/27/24 09:45 10/31/24 12:17 1.25 MG Sucralfate 1 gm BID@0600,2200 GT 10/28/24 22:00 11/05/24 04:45 1 GM Pantoprazole Sodium 50 ml @ 0 mls/hr Q0M IV 10/28/24 16:15 Cancel Lorazepam 1 mg ONCE PRN IV 10/30/24 11:00 Midazolam HCl 1 mg Q2HP PRN IV 10/30/24 16:45 11/03/24 15:29 1 MG Epoetin Roger-epbx 10,000 unit MWF@2100 SC 10/31/24 21:00 11/03/24 21:03 10,000 UNIT Vancomycin HCl 0 ml @ 0 mls/hr UD IV 10/31/24 12:45 Acetaminophen 650 mg Q6HP PRN [place] 10/31/24 13:30 Enteral Nutritional Formula 1,000 ml 30ML/HR GT 10/31/24 17:30 11/01/24 00:14 1,000 ML Sodium Chloride 10 ml QSHIFT@10,22 IV 10/31/24 22:00 11/04/24 22:41 10 ML Pantoprazole Sodium 80 mg BID IV 10/31/24 22:00 11/04/24 22:41 80 MG Metoprolol Tartrate 12.5 mg BID PO 11/01/24 10:00 11/04/24 23:10 12.5 MG Ibuprofen 600 mg Q6HP PRN PO 11/01/24 23:15 11/03/24 00:04 600 MG Metoclopramide HCl 5 mg Q8HR IV 11/02/24 14:00 11/05/24 04:45 5 MG Micafungin Sodium 100 mg/Sodium Chloride 100 ml @ 100 mls/hr DAILY IV 11/02/24 10:00 11/04/24 08:59 100 MLS/HR Enoxaparin Sodium 30 mg DAILY SC 11/03/24 10:00 11/04/24 09:53 30 MG Meropenem 50 ml @ 17 mls/hr Q12HR IV 11/03/24 22:00 11/04/24 22:00 17 MLS/HR Laboratory Results Laboratory Tests 11/05/24 03:13 Chemistry Test 11/05/24 03:13 Albumin 3.1 g/dL (3.2-4.8) L Calcium Level 8.7 mg/dL (8.7-10.4) Total Protein 7.1 g/dL (5.7-8.2) LFT Test 11/05/24 03:13 Alanine Aminotransferase (ALT) 101 U/L (7-40) H Alkaline Phosphatase 648 U/L (46-116) H Aspartate Amino Transferase (AST) 196 U/L (<34) H Total Bilirubin 1.9 mg/dL (0.2-1.0) H Urinalysis Test 10/05/24 15:05 10/11/24 18:00 10/26/24 20:33 Urine Mucus Few (None Seen) Urine Total Protein 85.0 mg/dL (1-14) H Urine Creatinine 48.05 mg/dL (30.0-125.0) Urine Sodium 76 mmol/L (40-220) Urine Color Light-yellow (Yellow) Urine Clarity Clear (Clear) Urine pH 7.0 (5.0-9.0) Urine Specific [place] 1.014 (1.001-1.035) Urine Protein 1+ (Negative) H Urine Ketones Negative (Negative) Urine Blood 1+ /uL (Negative) H Urine Nitrite Negative (Negative) Urine Bilirubin Negative (Negative) Urine Urobilinogen Normal mg/dL (Negative) Urine Leukocyte Esterase Negative /uL (Negative) Urine RBC 1 /hpf (0 - 3) Urine Microscopic WBC 3 /HPF (0-3) Urine Squamous Epithelial Cells None seen /hpf (<5) Urine Bacteria Few /hpf (None Seen) H Urine Glucose Normal mg/dL (Normal) Microbiology Microbiology Date/Time Source Procedure Growth Status 10/31/24 21:00 Voided Urine Urine Culture - Final Complete 10/31/24 10:50 Blood Blood Culture - Preliminary Resulted 10/18/24 09:21 Pleural Fluid Gram Stain - Final Complete 10/18/24 09:21 Pleural Fluid Body Fluid Culture - Final Complete 10/16/24 12:05 Bronchial Washings Gram Stain - Final Complete 10/16/24 12:05 Bronchial Washings Respiratory Culture - Final Complete 10/04/24 17:10 Nose MRSA Screen - Final Complete Labs and/or images reviewed: Labs reviewed by me, Image(s) reviewed by me Assessment/Plan Assessment/Plan Impression: -severe septic shock -pneumoperitoneum secondary to perforated gastric ulcer -acute kidney injury, hemodynamically mediated, probable VMN -acute hypoxic respiratory failure -shock liver -nicotine dependence -history of CVA -right upper extremity DVT -multifocal pneumonia, probable Gram-positive/Gram-negative etiology -anemia secondary to nutrition, renal failure -bilateral pleural effusions -small left pneumothorax -Failure of ventilator weaning, status post tracheostomy -fungemia Plan: Events: No events overnight. Patient assessed on CPAP. Tolerating without any noted respiratory distress. Tube feeding has been stopped since 2:00 a.m.. Notified nurse that she can restart feedings given his severe malnutrition -GI consultation: Recommendations reviewed. Patient placed on Protonix drip -Continue Metoprolol Tartrate 12.5mg -antibiotic therapy: Zosyn, Zyvox, micafungin -nephrology consultation: Assessment for HD. Potassium normal. Adequate urine output -repeat labs, chest x-ray, ABG in a.m. -Discussed plan of care with . All questions answered. Critical care time spent with patient discussing and formulating plan of care: 40 minutes. This does not include time spent performing procedures. This medical document was created using an electronic medical record system with [employer] dictation system. Although this document has been carefully reviewed, there may still be some phonetic and typographical errors. These areas are purely typographical due to imperfections of the software programs, and do not reflect any compromise in the patient's medical care. Plan discussed with: Patient, Other (RN) My Orders Orders - CHEYENNE PIKE NP Procedure Category Date Status Time Discontinue Picc ORDERS 11/04/24 Transmitted 14:23 Blood Culture HOLA 11/04/24 In Process 14:23 Abg W/ Co-Ox RT 11/05/24 Logged 08:08 Date of Service: Nov 05, 2024 Billing Provider: CHEYENNE PIKE NP Common Visit Codes: [id number] CARE 30-74 MIN CHEYENNE PIKE NP Nov 05, 2024 09:49
--- NOTE | 2024-11-05 10:28 | DVHPN2 ---
Progress Note - Dictate Date Seen: Nov 05, 2024 Medical Necessity Reason Pt with a Central, PICC or Fol: No The following are medically ne: Central Line, Gómez Catheter Reason for gómez catheter: Strict I&O Subjective Mr. Perez is a 48 years old right-handed gentleman with a history of hypertension, dyslipidemia, multiple strokes, he was brought to the [facility] on 10/04/2024 with a chief company of recurrent syncope, in the hospital, the patient was found to have perforated viscus, and he went through surgical treatment, he was hospital course has been complicated with sepsis, septic shock, pneumonia, right upper extremity DVT. With appropriate treatment, the patient has improved, but he does not mentally recover as anticipated. I saw him on 08/23/2023 for TIA I have seen and examined the patient, discussed with his nurse, he is on vent, mentally better, he follows verbal commands, he moves the left arm than right leg T-max: 100.4 Urinalysis, 08/22/2023: Unremarkable UDS, 08/22/2023: Negative WBC/Hb/PLT'/MCV, 08/22/2023: 10.8/13.1/184/87.4, 10/28/2024: 15/8/487/89.3 10/31/2024: 24.3/9.1/77/88.4 Troponin 1 high-sensitivity, 08/22/2023: 336, 273/300 BUNs/CR, 08/22/2023: 15/1.45 10/31/2024: Two 9/2.42 GFR, 08/22/2023: 59 Liver function test, 10/04/2024: Unremarkable TBI/AST/ALT/AP, 10/04/2024: 0.6/410/335/31, 10/05/2024: 1.3/582/423/39, 10/31/2024: 3.6/54/98/117 TG/CHO L/LDL/HDL, 08/2023: 136/166/111/39 TSH, 08/23/2023: 4.25 DONAL, 08/23/2023: 1. No evidence of intracardiac source of embolus in the study conducted today. 2. Normal valves without significant masses or change vegetations were discernible. 3. No evidence of intra-atrial shunting by bubble study and color Doppler. 4. Mild atherosclerotic plaquing was visualized in the arch of the aorta without evidence of dissection in the visualized part CT head, 10/24/2024: 1. No intracranial hemorrhage or mass effect. 2. Qqke-ex-qspvxuvf chronic microvascular ischemic changes. 3. Old bilateral basal ganglia lacunar infarcts. 4. Small bilateral mastoid effusions. CT abdomen/pelvis, 10/04/2024: 1. Extensive intra-abdominal free air concerning for perforated viscus. Surgical consultation is recommended. 2. Enteritis is seen in multiple loops of small bowel in the left hemiabdomen. 3. Moderate abdominopelvic ascites. 4. Small right pleural effusion. CTA neck, head, 08/22/2023:1. CTA head demonstrates no evidence of large vessel occlusion, aneurysm, or significant stenosis. 2. CTA neck demonstrates no evidence of carotid or vertebral dissection or significant stenosis. 3. No noncontrast CT head was performed. 4. Additional findings as detailed above MRI head, 08/23/2023: No acute infarct, intracranial hemorrhage, mass effect, or hydrocephalus. Moderate periventricular and deep subcortical white matter T2 hyperintensities which are nonspecific, but most likely related to sequela of chronic microvascular ischemic changes (I have reviewed the MRI films with our in-house radiologist, Dr. Black, the patient has bilateral multiple subacute/chronic infarcts) MRI head, 11/01/2024: No acute cerebrovascular ischemia. Edhe-ik-nxkhvnea chronic microvascular ischemic changes. Bilateral mastoid effusions. Old bilateral basal ganglia / lopes radiata infarcts. vital signs Vital Sign Date Time Temp Pulse Resp B/P (MAP) Pulse Ox O2 Delivery O2 Flow Rate FiO2 11/05/24 10:10 93 150/80 11/05/24 10:05 23 100 30 11/05/24 06:00 Mechanical Ventilator+ 11/05/24 04:45 100.2 100.2 Total Intake and Output 11/04/24 11/04/24 11/05/24 15:00 23:00 07:00 Intake Total 250 ml 235 ml 340 ml Output Total 880 ml 861 ml Balance 250 ml -645 ml -521 ml medications Current Medications Medications Dose Ordered Sig/Wally Route Start Time Stop Time Status Last Admin Dose Admin Ondansetron HCl 4 mg Q4HP PRN IV 10/04/24 11:45 Morphine Sulfate 2 mg Q4HPRN PRN IV 10/04/24 11:45 Cancel Nitroglycerin 0.4 mg Q5MINP PRN SL 10/04/24 11:45 Morphine Sulfate 2 mg Q30M PRN IV 10/04/24 11:45 Cancel Lorazepam 50 mg/ Sodium Chloride 50 ml @ 1 mls/hr Q24H IV 10/04/24 18:15 Cancel Amino Acids 0 ml @ 0 mls/hr PER PHARMACY IV 10/05/24 14:30 UNV Diagnostic Test (Pha) 1 strip Q6HR 10/05/24 18:00 11/05/24 06:00 1 STRIP Insulin Human Regular FOLLOW SLIDING SCALE Q6HR SC 10/05/24 18:00 11/03/24 17:23 2 UNITS Dextrose 50 ml UD IV 10/05/24 14:45 Meropenem 50 ml @ 17 mls/hr Q12HR IV 10/07/24 10:00 UNV Labetalol HCl 10 mg Q2HPRN PRN IV 10/08/24 09:30 10/31/24 12:26 10 MG Levalbuterol HCl 0.625 mg Q6HR NEB 10/13/24 12:00 11/05/24 06:38 0.625 MG Ipratropium [place] 0.5 mg Q6HR NEB 10/13/24 12:00 11/05/24 06:38 0.5 MG Norepinephrine Bitartrate 32 mg/ Sodium Chloride 250 ml @ 0.938 mls/ hr Q24H IV 10/14/24 10:15 Hold 10/30/24 21:15 0.938 MLS/HR Bumetanide 1 mg DAILY IV 10/22/24 10:00 11/05/24 10:08 1 MG Morphine Sulfate 2 mg Q4HPRN PRN IV 10/21/24 11:30 11/03/24 13:31 2 MG Nicardipine/ Sodium Chloride 200 ml @ 50 mls/hr Q4H IV 10/22/24 08:45 10/30/24 15:34 75 MLS/HR Acetaminophen 650 mg Q6HP PRN GT 10/22/24 09:00 11/05/24 02:19 650 MG Metoprolol Tartrate 1.25 mg Q6HPRN PRN IV 10/27/24 09:45 10/31/24 12:17 1.25 MG Sucralfate 1 gm BID@0600,2200 GT 10/28/24 22:00 11/05/24 04:45 1 GM Pantoprazole Sodium 50 ml @ 0 mls/hr Q0M IV 10/28/24 16:15 Cancel Lorazepam 1 mg ONCE PRN IV 10/30/24 11:00 Midazolam HCl 1 mg Q2HP PRN IV 10/30/24 16:45 11/03/24 15:29 1 MG Epoetin Roger-epbx 10,000 unit MWF@2100 SC 10/31/24 21:00 11/03/24 21:03 10,000 UNIT Vancomycin HCl 0 ml @ 0 mls/hr UD IV 10/31/24 12:45 Acetaminophen 650 mg Q6HP PRN [place] 10/31/24 13:30 Enteral Nutritional Formula 1,000 ml 30ML/HR GT 10/31/24 17:30 11/05/24 10:00 1,000 ML Sodium Chloride 10 ml QSHIFT@10,22 IV 10/31/24 22:00 11/05/24 10:09 10 ML Pantoprazole Sodium 80 mg BID IV 10/31/24 22:00 11/05/24 10:08 80 MG Metoprolol Tartrate 12.5 mg BID PO 11/01/24 10:00 11/05/24 10:10 12.5 MG Ibuprofen 600 mg Q6HP PRN PO 11/01/24 23:15 11/03/24 00:04 600 MG Metoclopramide HCl 5 mg Q8HR IV 11/02/24 14:00 11/05/24 04:45 5 MG Micafungin Sodium 100 mg/Sodium Chloride 100 ml @ 100 mls/hr DAILY IV 11/02/24 10:00 11/05/24 10:09 100 MLS/HR Enoxaparin Sodium 30 mg DAILY SC 11/03/24 10:00 11/05/24 10:10 30 MG Meropenem 50 ml @ 17 mls/hr Q12HR IV 11/03/24 22:00 11/05/24 10:09 17 MLS/HR objective General: the patient is well developed and nourished. No acute distress. MENTAL STATUS: Subjective SPEECH, LANGUAGE, HIGHER CORTICAL FUNCTION: He does not vocalize/status post tracheostomy. CRANIAL NERVES:Intact visual ansari to confrontation (visual thread). Pupils are equal, round and reactive. EOMs full and conjugate. Mandibular strength intact. Facial muscles symmetrical and strength intact. SENSATION: Sensation to touch and pinprick is unremarkable MOTOR: Normal muscle bulk. No fasciculations. No abnormal movements or posturing. He moves left arm right leg REFLEXES: Deep tendon reflexes are increased bilaterally, clonus in both knees . No pathological reflexes. CEREBELLAR/COORDINATION: Deferred GAIT/STATION: deferred laboratory and microbiology Laboratory Tests 11/05/24 03:13 Test 11/05/24 03:13 Range/Units Serum Glucose 103 74-106 mg/dL Problem List Altered mental status Metabolic encephalopathy secondary to sepsis, septic shock, pneumonia Hypoxic encephalopathy Viscus perforation status post surgical repair GI bleeding Anemia Sepsis, septic shock Respiratory failure S/P tracheostomy Multiple strokes Secondary to history methamphetamine, cocaine, alcohol use History of alcohol abuse History of cocaine, methamphetamine abuse Hyperreflexia secondary to multiple strokes Assessment/Plan Monitoring Supportive treatment ICU care Stabilize vitals Respiratory support/vent management Follow-up labs IV antibiotics Resume Aspirin 81 mg daily later TPN Quit tobacco smoking No more alcohol, street drug abuse Stroke risk factors discussed More recommended per clinical course This medical document was created using an electronic medical record system with [employer] dictation system. Although this document has been carefully reviewed, there may still be some phonetic and typographical errors. These areas are purely typographical due to imperfections of the software programs, and do not reflect any compromise in the patient's medical care. Dietary Evaluation Review Comments: 1. Continue TPN to meet at least 75% estimated needs 2. Continue current POC Expected Outcomes/Goals: FU 2-3 days to meet adequate energy & protein within 7 days of NPO Protein Calorie Malnutrition: Severe (rn) Plan discussed with: Other CC Plasma Assessment Blood Product Administration S: [id number] LEANDRO BLACK MD Nov 05, 2024 10:28
--- NOTE | 2024-11-05 16:16 | DVHPN2 ---
Progress Note Date Seen: Nov 05, 2024 Resident Creating Document: KWASI MILLAN Medical Necessity Reason Pt with a Central, PICC or Fol: No The following are medically ne: Central Line, Gómez Catheter Reason for gómez catheter: Strict I&O Subjective Review of Systems Patient with ongoing fever, H&H stable Patient was on CPAP trial today morning, Platelet elevated to 207 Serum creatinine elevated to 4.02 today As per nursing staff patient is MRCP was on hold due to patient can not hold breath for 15 seconds Patient was seen by Nephrology Objective vital signs Vital Sign Date Time Temp Pulse Resp B/P (MAP) Pulse Ox O2 Delivery O2 Flow Rate FiO2 11/05/24 13:53 89 20 113/56 (75) 100 30 11/05/24 06:00 Mechanical Ventilator+ 11/05/24 04:45 100.2 100.2 Total Intake and Output 11/04/24 11/04/24 11/05/24 15:00 23:00 07:00 Intake Total 250 ml 235 ml 340 ml Output Total 880 ml 861 ml Balance 250 ml -645 ml -521 ml medications Current Medications Medications Dose Ordered Sig/Wally Route Start Time Stop Time Status Last Admin Dose Admin Ondansetron HCl 4 mg Q4HP PRN IV 10/04/24 11:45 Morphine Sulfate 2 mg Q4HPRN PRN IV 10/04/24 11:45 Cancel Nitroglycerin 0.4 mg Q5MINP PRN SL 10/04/24 11:45 Morphine Sulfate 2 mg Q30M PRN IV 10/04/24 11:45 Cancel Lorazepam 50 mg/ Sodium Chloride 50 ml @ 1 mls/hr Q24H IV 10/04/24 18:15 Cancel Amino Acids 0 ml @ 0 mls/hr PER PHARMACY IV 10/05/24 14:30 UNV Diagnostic Test (Pha) 1 strip Q6HR 10/05/24 18:00 11/05/24 12:00 1 STRIP Insulin Human Regular FOLLOW SLIDING SCALE Q6HR SC 10/05/24 18:00 11/03/24 17:23 2 UNITS Dextrose 50 ml UD IV 10/05/24 14:45 Meropenem 50 ml @ 17 mls/hr Q12HR IV 10/07/24 10:00 UNV Labetalol HCl 10 mg Q2HPRN PRN IV 10/08/24 09:30 10/31/24 12:26 10 MG Levalbuterol HCl 0.625 mg Q6HR NEB 10/13/24 12:00 11/05/24 11:15 0.625 MG Ipratropium [place] 0.5 mg Q6HR NEB 10/13/24 12:00 11/05/24 11:15 0.5 MG Norepinephrine Bitartrate 32 mg/ Sodium Chloride 250 ml @ 0.938 mls/ hr Q24H IV 10/14/24 10:15 Hold 10/30/24 21:15 0.938 MLS/HR Bumetanide 1 mg DAILY IV 10/22/24 10:00 11/05/24 10:08 1 MG Morphine Sulfate 2 mg Q4HPRN PRN IV 10/21/24 11:30 11/03/24 13:31 2 MG Nicardipine/ Sodium Chloride 200 ml @ 50 mls/hr Q4H IV 10/22/24 08:45 10/30/24 15:34 75 MLS/HR Acetaminophen 650 mg Q6HP PRN GT 10/22/24 09:00 11/05/24 02:19 650 MG Metoprolol Tartrate 1.25 mg Q6HPRN PRN IV 10/27/24 09:45 10/31/24 12:17 1.25 MG Sucralfate 1 gm BID@0600,2200 GT 10/28/24 22:00 11/05/24 04:45 1 GM Pantoprazole Sodium 50 ml @ 0 mls/hr Q0M IV 10/28/24 16:15 Cancel Lorazepam 1 mg ONCE PRN IV 10/30/24 11:00 Midazolam HCl 1 mg Q2HP PRN IV 10/30/24 16:45 11/03/24 15:29 1 MG Epoetin Roger-epbx 10,000 unit MWF@2100 SC 10/31/24 21:00 11/03/24 21:03 10,000 UNIT Vancomycin HCl 0 ml @ 0 mls/hr UD IV 10/31/24 12:45 Acetaminophen 650 mg Q6HP PRN [place] 10/31/24 13:30 Enteral Nutritional Formula 1,000 ml 30ML/HR GT 10/31/24 17:30 11/05/24 10:00 1,000 ML Sodium Chloride 10 ml QSHIFT@10,22 IV 10/31/24 22:00 11/05/24 10:09 10 ML Pantoprazole Sodium 80 mg BID IV 10/31/24 22:00 11/05/24 10:08 80 MG Metoprolol Tartrate 12.5 mg BID PO 11/01/24 10:00 11/05/24 10:10 12.5 MG Ibuprofen 600 mg Q6HP PRN PO 11/01/24 23:15 11/03/24 00:04 600 MG Metoclopramide HCl 5 mg Q8HR IV 11/02/24 14:00 11/05/24 14:58 5 MG Micafungin Sodium 100 mg/Sodium Chloride 100 ml @ 100 mls/hr DAILY IV 11/02/24 10:00 11/05/24 10:09 100 MLS/HR Enoxaparin Sodium 30 mg DAILY SC 11/03/24 10:00 11/05/24 10:10 30 MG Meropenem 50 ml @ 17 mls/hr Q12HR IV 11/03/24 22:00 11/05/24 10:09 17 MLS/HR laboratory and microbiology Laboratory Tests 11/05/24 03:13 Test 11/05/24 03:13 Range/Units Serum Glucose 103 74-106 mg/dL Microbiology Date/Time Source Procedure Growth Status 11/04/24 15:20 Blood Blood Culture - Preliminary NO GROWTH AFTER 24 HOURS OF INCUBATION. Resulted 10/31/24 21:00 Voided Urine Urine Culture - Final Complete 10/18/24 09:21 Pleural Fluid Gram Stain - Final Complete 10/18/24 09:21 Pleural Fluid Body Fluid Culture - Final Complete 10/16/24 12:05 Bronchial Washings Gram Stain - Final Complete 10/16/24 12:05 Bronchial Washings Respiratory Culture - Final Complete 10/04/24 17:10 Nose MRSA Screen - Final Complete Problem List/Assessment/Plan Problem List/Assessment/Plan Assessment and plan (1) Cholecystitis (2) TIA (transient ischemic attack) (3) Altered mental status (4) Severe anemia (5) Perforated viscus (6) NSTEMI (non-ST elevated myocardial infarction) (7) GI bleed (8) Septic shock (9) Leukocytosis Events Patient's MRI on hold as patient can not breathing for 15 minutes Patient was on CPAP trial today morning H&H stable Cholecystostomy tube drained almost 100 mL of bile Plan Continue NG-tube feeding Get MRI with MRCP-as per nursing staff patient is MRI was on hold as patient can not hold breath for 15 minutes Recommending for surgical re-evaluation for possible cholecystectomy Consider HIDA scan if possible Monitor CBC, CMP Continue IV ppi Protonix 80 mg q.12 hours and taper off the IV Protonix drip Continue current antibiotic As Per Nephro monitor off dialysis Plan discussed with Dr. Chanda Stoddard , nursing staff, Total time spent on patient evaluation, chart review, assessment and plan, discussion discussion >35 minutes Plan discussed with: Patient (RN), Other (RN) My Orders My Orders Orders - KWASI MILLAN Procedure Category Date Status Time Vancomycin,Random LAB 11/06/24 Verified 04:00 Dietary Evaluation Review Comments: 1. Continue TPN to meet at least 75% estimated needs 2. Continue current POC Expected Outcomes/Goals: FU 2-3 days to meet adequate energy & protein within 7 days of NPO Protein Calorie Malnutrition: Severe (rn) CC Plasma Assessment Blood Product Administration S: [id number] KWASI MILLAN RESIDENT Nov 05, 2024 16:16
[2024-11-05] MEDS: DIGOXIN (250MCG/ML) 2 ML AMPULE IV ONE (17:15)
--- NOTE | 2024-11-05 18:01 | DVHPN2 ---
Progress Note Date Seen: Nov 05, 2024 Medical Necessity Reason Pt with a Central, PICC or Fol: No The following are medically ne: Central Line, Gómez Catheter Reason for gómez catheter: Strict I&O Subjective Patient reports: Other Review of Systems: Deferred Objective vital signs Vital Sign Date Time Temp Pulse Resp B/P (MAP) Pulse Ox O2 Delivery O2 Flow Rate FiO2 11/05/24 16:12 103 24 139/69 (92) 100 30 11/05/24 06:00 Mechanical Ventilator+ 11/05/24 04:45 100.2 100.2 Total Intake and Output 11/04/24 11/04/24 11/05/24 15:00 23:00 07:00 Intake Total 250 ml 235 ml 340 ml Output Total 880 ml 861 ml Balance 250 ml -645 ml -521 ml medications Current Medications Medications Dose Ordered Sig/Wally Route Start Time Stop Time Status Last Admin Dose Admin Ondansetron HCl 4 mg Q4HP PRN IV 10/04/24 11:45 Morphine Sulfate 2 mg Q4HPRN PRN IV 10/04/24 11:45 Cancel Nitroglycerin 0.4 mg Q5MINP PRN SL 10/04/24 11:45 Morphine Sulfate 2 mg Q30M PRN IV 10/04/24 11:45 Cancel Lorazepam 50 mg/ Sodium Chloride 50 ml @ 1 mls/hr Q24H IV 10/04/24 18:15 Cancel Amino Acids 0 ml @ 0 mls/hr PER PHARMACY IV 10/05/24 14:30 UNV Diagnostic Test (Pha) 1 strip Q6HR 10/05/24 18:00 11/05/24 12:00 1 STRIP Insulin Human Regular FOLLOW SLIDING SCALE Q6HR SC 10/05/24 18:00 11/03/24 17:23 2 UNITS Dextrose 50 ml UD IV 10/05/24 14:45 Meropenem 50 ml @ 17 mls/hr Q12HR IV 10/07/24 10:00 UNV Labetalol HCl 10 mg Q2HPRN PRN IV 10/08/24 09:30 10/31/24 12:26 10 MG Levalbuterol HCl 0.625 mg Q6HR NEB 10/13/24 12:00 11/05/24 17:31 0.625 MG Ipratropium [place] 0.5 mg Q6HR NEB 10/13/24 12:00 11/05/24 17:32 0.5 MG Norepinephrine Bitartrate 32 mg/ Sodium Chloride 250 ml @ 0.938 mls/ hr Q24H IV 10/14/24 10:15 Hold 10/30/24 21:15 0.938 MLS/HR Bumetanide 1 mg DAILY IV 10/22/24 10:00 11/05/24 10:08 1 MG Morphine Sulfate 2 mg Q4HPRN PRN IV 10/21/24 11:30 11/03/24 13:31 2 MG Nicardipine/ Sodium Chloride 200 ml @ 50 mls/hr Q4H IV 10/22/24 08:45 10/30/24 15:34 75 MLS/HR Acetaminophen 650 mg Q6HP PRN GT 10/22/24 09:00 11/05/24 02:19 650 MG Metoprolol Tartrate 1.25 mg Q6HPRN PRN IV 10/27/24 09:45 10/31/24 12:17 1.25 MG Sucralfate 1 gm BID@0600,2200 GT 10/28/24 22:00 11/05/24 04:45 1 GM Pantoprazole Sodium 50 ml @ 0 mls/hr Q0M IV 10/28/24 16:15 Cancel Lorazepam 1 mg ONCE PRN IV 10/30/24 11:00 Midazolam HCl 1 mg Q2HP PRN IV 10/30/24 16:45 11/03/24 15:29 1 MG Epoetin Roger-epbx 10,000 unit MWF@2100 SC 10/31/24 21:00 11/03/24 21:03 10,000 UNIT Vancomycin HCl 0 ml @ 0 mls/hr UD IV 10/31/24 12:45 Acetaminophen 650 mg Q6HP PRN [place] 10/31/24 13:30 Enteral Nutritional Formula 1,000 ml 30ML/HR GT 10/31/24 17:30 11/05/24 10:00 1,000 ML Sodium Chloride 10 ml QSHIFT@10,22 IV 10/31/24 22:00 11/05/24 10:09 10 ML Pantoprazole Sodium 80 mg BID IV 10/31/24 22:00 11/05/24 10:08 80 MG Metoprolol Tartrate 12.5 mg BID PO 11/01/24 10:00 11/05/24 10:10 12.5 MG Ibuprofen 600 mg Q6HP PRN PO 11/01/24 23:15 11/03/24 00:04 600 MG Metoclopramide HCl 5 mg Q8HR IV 11/02/24 14:00 11/05/24 14:58 5 MG Micafungin Sodium 100 mg/Sodium Chloride 100 ml @ 100 mls/hr DAILY IV 11/02/24 10:00 11/05/24 10:09 100 MLS/HR Enoxaparin Sodium 30 mg DAILY SC 11/03/24 10:00 11/05/24 10:10 30 MG Meropenem 50 ml @ 17 mls/hr Q12HR IV 11/03/24 22:00 11/05/24 10:09 17 MLS/HR Examination: GENERAL:Normal, HEENT:Abnormal, LUNGS:Abnormal, MSK:Abnormal, NEURO:Normal laboratory and microbiology Laboratory Tests 11/05/24 03:13 Test 11/05/24 03:13 Range/Units Serum Glucose 103 74-106 mg/dL Microbiology Date/Time Source Procedure Growth Status 11/04/24 15:20 Blood Blood Culture - Preliminary NO GROWTH AFTER 24 HOURS OF INCUBATION. Resulted 10/31/24 21:00 Voided Urine Urine Culture - Final Complete 10/18/24 09:21 Pleural Fluid Gram Stain - Final Complete 10/18/24 09:21 Pleural Fluid Body Fluid Culture - Final Complete 10/16/24 12:05 Bronchial Washings Gram Stain - Final Complete 10/16/24 12:05 Bronchial Washings Respiratory Culture - Final Complete 10/04/24 17:10 Nose MRSA Screen - Final Complete Problem List/Assessment/Plan Problem List/Assessment/Plan Acute kidney injury /ATN requiring acute inpatient hemodialysis Acute respiratory failure -> now trach Perforated gastric ulcer status post exploratory laparoscopic surgery Hypokalemia Anemia due to chronic disease/inflammation tachycardia + Bcx fungemia recs Hemodialysis 11/03 dialysis catheter removed after dialysis given fungemia We will monitor him off dialysis Evaluate GOPHERMAN needs daily get blood cx Plan discussed with: Other My Orders My Orders Orders - DAYANARA BLACKWOOD MD Procedure Category Date Status Time Phosphorus LAB 11/06/24 Verified 04:00 Dietary Evaluation Review Comments: 1. Continue TPN to meet at least 75% estimated needs 2. Continue current POC Expected Outcomes/Goals: FU 2-3 days to meet adequate energy & protein within 7 days of NPO Protein Calorie Malnutrition: Severe (rn) CC Plasma Assessment Blood Product Administration S: [id number] DAYANARA BLACKWOOD MD Nov 05, 2024 18:01
--- NOTE | 2024-11-05 18:05 | DVHPN2 ---
Progress Note - Dictate Date Seen: Nov 05, 2024 Medical Necessity Reason Pt with a Central, PICC or Fol: No The following are medically ne: Central Line, Gómez Catheter Reason for gómez catheter: Strict I&O vital signs Vital Sign Date Time Temp Pulse Resp B/P (MAP) Pulse Ox O2 Delivery O2 Flow Rate FiO2 11/05/24 16:12 103 24 139/69 (92) 100 30 11/05/24 06:00 Mechanical Ventilator+ 11/05/24 04:45 100.2 100.2 Total Intake and Output 11/04/24 11/04/24 11/05/24 15:00 23:00 07:00 Intake Total 250 ml 235 ml 340 ml Output Total 880 ml 861 ml Balance 250 ml -645 ml -521 ml medications Current Medications Medications Dose Ordered Sig/Wally Route Start Time Stop Time Status Last Admin Dose Admin Ondansetron HCl 4 mg Q4HP PRN IV 10/04/24 11:45 Morphine Sulfate 2 mg Q4HPRN PRN IV 10/04/24 11:45 Cancel Nitroglycerin 0.4 mg Q5MINP PRN SL 10/04/24 11:45 Morphine Sulfate 2 mg Q30M PRN IV 10/04/24 11:45 Cancel Lorazepam 50 mg/ Sodium Chloride 50 ml @ 1 mls/hr Q24H IV 10/04/24 18:15 Cancel Amino Acids 0 ml @ 0 mls/hr PER PHARMACY IV 10/05/24 14:30 UNV Diagnostic Test (Pha) 1 strip Q6HR 10/05/24 18:00 11/05/24 12:00 1 STRIP Insulin Human Regular FOLLOW SLIDING SCALE Q6HR SC 10/05/24 18:00 11/03/24 17:23 2 UNITS Dextrose 50 ml UD IV 10/05/24 14:45 Meropenem 50 ml @ 17 mls/hr Q12HR IV 10/07/24 10:00 UNV Labetalol HCl 10 mg Q2HPRN PRN IV 10/08/24 09:30 10/31/24 12:26 10 MG Levalbuterol HCl 0.625 mg Q6HR NEB 10/13/24 12:00 11/05/24 17:31 0.625 MG Ipratropium [place] 0.5 mg Q6HR NEB 10/13/24 12:00 11/05/24 17:32 0.5 MG Norepinephrine Bitartrate 32 mg/ Sodium Chloride 250 ml @ 0.938 mls/ hr Q24H IV 10/14/24 10:15 Hold 10/30/24 21:15 0.938 MLS/HR Bumetanide 1 mg DAILY IV 10/22/24 10:00 11/05/24 10:08 1 MG Morphine Sulfate 2 mg Q4HPRN PRN IV 10/21/24 11:30 11/03/24 13:31 2 MG Nicardipine/ Sodium Chloride 200 ml @ 50 mls/hr Q4H IV 10/22/24 08:45 10/30/24 15:34 75 MLS/HR Acetaminophen 650 mg Q6HP PRN GT 10/22/24 09:00 11/05/24 02:19 650 MG Metoprolol Tartrate 1.25 mg Q6HPRN PRN IV 10/27/24 09:45 10/31/24 12:17 1.25 MG Sucralfate 1 gm BID@0600,2200 GT 10/28/24 22:00 11/05/24 04:45 1 GM Pantoprazole Sodium 50 ml @ 0 mls/hr Q0M IV 10/28/24 16:15 Cancel Lorazepam 1 mg ONCE PRN IV 10/30/24 11:00 Midazolam HCl 1 mg Q2HP PRN IV 10/30/24 16:45 11/03/24 15:29 1 MG Epoetin Roger-epbx 10,000 unit MWF@2100 SC 10/31/24 21:00 11/03/24 21:03 10,000 UNIT Vancomycin HCl 0 ml @ 0 mls/hr UD IV 10/31/24 12:45 Acetaminophen 650 mg Q6HP PRN [place] 10/31/24 13:30 Enteral Nutritional Formula 1,000 ml 30ML/HR GT 10/31/24 17:30 11/05/24 10:00 1,000 ML Sodium Chloride 10 ml QSHIFT@10,22 IV 10/31/24 22:00 11/05/24 10:09 10 ML Pantoprazole Sodium 80 mg BID IV 10/31/24 22:00 11/05/24 10:08 80 MG Metoprolol Tartrate 12.5 mg BID PO 11/01/24 10:00 11/05/24 10:10 12.5 MG Ibuprofen 600 mg Q6HP PRN PO 11/01/24 23:15 11/03/24 00:04 600 MG Metoclopramide HCl 5 mg Q8HR IV 11/02/24 14:00 11/05/24 14:58 5 MG Micafungin Sodium 100 mg/Sodium Chloride 100 ml @ 100 mls/hr DAILY IV 11/02/24 10:00 11/05/24 10:09 100 MLS/HR Enoxaparin Sodium 30 mg DAILY SC 11/03/24 10:00 11/05/24 10:10 30 MG Meropenem 50 ml @ 17 mls/hr Q12HR IV 11/03/24 22:00 11/05/24 10:09 17 MLS/HR laboratory and microbiology Laboratory Tests 11/05/24 03:13 Test 11/05/24 03:13 Range/Units Serum Glucose 103 74-106 mg/dL Assessment/Plan Impression Acute hypoxemic respiratory failure S/p tracheostomy Perforated viscus Septic shock Smoker Patient seen and examined in ICU Events On mechanical ventilation S/p tracheostomy PEEP 5, FiO2 30% Cultures obtained Blood growing lamar Labs and imaging reviewed ABG reviewed Management Vent support as needed Titrate to maintain sats 90% or above Transition to trache collar Trache care per RT protocols Continue antibiotics and antifungals F/u cultures Bronchodilators Monitor renal function Monitor electrolytes Supplement as needed HD per nephrology Nutritional support Tube feedings DVT prophylaxis Critical care time 35 minutes Dietary Evaluation Review Comments: 1. Continue TPN to meet at least 75% estimated needs 2. Continue current POC Expected Outcomes/Goals: FU 2-3 days to meet adequate energy & protein within 7 days of NPO Protein Calorie Malnutrition: Severe (rn) Plan discussed with: Patient, Spouse CC Plasma Assessment Blood Product Administration S: [id number] VALENTE DEE MD Nov 05, 2024 18:05
[2024-11-05] MEDS: ACETAMINOPHEN 650 MG RECT SUPP PR PRN (18:31)
[2024-11-06] VITALS (105 sets, daily range): BP systolic 36–188; BP diastolic 39–100; PULSE 79–122; RESP 18–37; TEMP 98.2–102.6; O2SAT 89–100
[2024-11-06 03:54] LABS: Mean Corpuscular Hemoglobin 29.0 pg (28.0-32.0)
[2024-11-06 03:57] LABS: Hematocrit 24.0 % (41.0-53.0); Hemoglobin 7.9 g/dL (13.5-17.5); Mean Corpuscular Volume 88.0 fL (80.0-100.0)
[2024-11-06 04:09] LABS: Chloride 102 mmol/L (98-107); Sodium 139 mmol/L (136-145)
[2024-11-06 04:10] LABS: Anion Gap 14 (5-15); Carbon Dioxide 23 mmol/L (20-31)
[2024-11-06 04:15] LABS: BUN/Creatinine Ratio 15.0 (10.0-20.0); Glucose 100 mg/dL (74-106)
[2024-11-06 04:16] LABS: Blood Urea Nitrogen 65 mg/dL (9-23); Calcium 8.3 mg/dL (8.7-10.4); Potassium 3.3 mmol/L (3.5-5.1)
[2024-11-06 04:47] LABS: Total Cells Counted 100.0 (100)
[2024-11-06] MEDS: POTASSIUM CHL 20MEQ/100ML 100 ML IV ONE (05:24)
--- NOTE | 2024-11-06 06:08 | DVH ---
EXAM: XR Chest, 1 View CLINICAL INDICATION: Pain TECHNIQUE: Frontal view of the chest. COMPARISON: No relevant prior studies available. FINDINGS: LUNGS AND PLEURAL SPACES: Pulmonary congestion and edema. Pneumonia cannot be excluded. No pneumoth orax. HEART: Unremarkable. No cardiomegaly. MEDIASTINUM: Unremarkable. Normal mediastinal contour. BONES/JOINTS: Unremarkable. No acute fracture. TUBES, LINES AND DEVICES: Tracheostomy tube in satisfactory position. Enteric tube tip cannot be se en but is below the diaphragm. IMPRESSION: Pulmonary congestion and edema. Pneumonia cannot be excluded.
[2024-11-06] MEDS: LACTATED RINGER'S 1,000 ML IV ONE (08:30)
[2024-11-06 08:49] LABS: Base Excess -1.3 mmol/L (-2.0-3.0)
[2024-11-06] MEDS ORDERED: HYDROcodone-ACET 5/325MG TAB PO PRN (09:15)
--- NOTE | 2024-11-06 09:22 | DVHPN2 ---
Subjective Patient continues to be encephalopathic. Following some commands Reviewed: Care Plan, H&P, Labs, Medications, Previous Orders, Radiology, Other (Consultants) Changes from previous H/P or p: No Changes General: Per HPI Objective Vitals Vital Signs Date Time Temp Pulse Resp B/P (MAP) Pulse Ox O2 Delivery O2 Flow Rate FiO2 11/06/24 08:00 106 24 154/87 (109) 99 30 11/06/24 06:26 100.4 11/06/24 06:00 Mechanical Ventilator+ Intake/Output Intake and Output 11/06/24 07:00 Intake Total 808 ml Output Total 1602 ml Balance -794 ml Intake Oral 100 ml IV Total 201 ml Tube Feeding 507 ml Output Urine Total 1250 ml Stool Total 2 ml Drainage Total 350 ml General Appearance: Alert, Cooperative, mild distress, Other (Intubated and sedated) HEENT: Atraumatic, PERRLA Lungs: Clear to auscultation, Normal air movement, Other (Mechanical ventilation. Decreased breath sounds at bases) Cardiovascular: Normal S1, Normal S2, Other (Sinus tachycardia) Abdomen: Other (NG with bilious drainage now) Extremities: Normal pulses Neuro: Other (Unable to assess) Skin: Dry, Intact, Wounds (Abdominal wound dry and intact), Other Psych/Mental Status: Other Medications Current Medications Medications Dose Ordered Sig/Wally Route Start Time Stop Time Status Last Admin Dose Admin Ondansetron HCl 4 mg Q4HP PRN IV 10/04/24 11:45 Morphine Sulfate 2 mg Q4HPRN PRN IV 10/04/24 11:45 Cancel Nitroglycerin 0.4 mg Q5MINP PRN SL 10/04/24 11:45 Morphine Sulfate 2 mg Q30M PRN IV 10/04/24 11:45 Cancel Lorazepam 50 mg/ Sodium Chloride 50 ml @ 1 mls/hr Q24H IV 10/04/24 18:15 Cancel Amino Acids 0 ml @ 0 mls/hr PER PHARMACY IV 10/05/24 14:30 UNV Diagnostic Test (Pha) 1 strip Q6HR 10/05/24 18:00 11/06/24 05:24 1 STRIP Insulin Human Regular FOLLOW SLIDING SCALE Q6HR SC 10/05/24 18:00 11/03/24 17:23 2 UNITS Dextrose 50 ml UD IV 10/05/24 14:45 Meropenem 50 ml @ 17 mls/hr Q12HR IV 10/07/24 10:00 UNV Labetalol HCl 10 mg Q2HPRN PRN IV 10/08/24 09:30 11/06/24 05:45 10 MG Levalbuterol HCl 0.625 mg Q6HR NEB 10/13/24 12:00 11/06/24 06:13 0.625 MG Ipratropium [place] 0.5 mg Q6HR NEB 10/13/24 12:00 11/06/24 06:13 0.5 MG Norepinephrine Bitartrate 32 mg/ Sodium Chloride 250 ml @ 0.938 mls/ hr Q24H IV 10/14/24 10:15 Hold 10/30/24 21:15 0.938 MLS/HR Morphine Sulfate 2 mg Q4HPRN PRN IV 10/21/24 11:30 11/03/24 13:31 2 MG Nicardipine/ Sodium Chloride 200 ml @ 50 mls/hr Q4H IV 10/22/24 08:45 10/30/24 15:34 75 MLS/HR Acetaminophen 650 mg Q6HP PRN GT 10/22/24 09:00 11/06/24 02:14 650 MG Metoprolol Tartrate 1.25 mg Q6HPRN PRN IV 10/27/24 09:45 10/31/24 12:17 1.25 MG Sucralfate 1 gm BID@0600,2200 GT 10/28/24 22:00 11/06/24 05:24 1 GM Pantoprazole Sodium 50 ml @ 0 mls/hr Q0M IV 10/28/24 16:15 Cancel Lorazepam 1 mg ONCE PRN IV 10/30/24 11:00 Midazolam HCl 1 mg Q2HP PRN IV 10/30/24 16:45 11/03/24 15:29 1 MG Epoetin Roger-epbx 10,000 unit MWF@2100 SC 10/31/24 21:00 11/05/24 20:30 10,000 UNIT Vancomycin HCl 0 ml @ 0 mls/hr UD IV 10/31/24 12:45 Acetaminophen 650 mg Q6HP PRN [place] 10/31/24 13:30 11/06/24 05:26 650 MG Enteral Nutritional Formula 1,000 ml 30ML/HR GT 10/31/24 17:30 11/05/24 10:00 1,000 ML Sodium Chloride 10 ml QSHIFT@10,22 IV 10/31/24 22:00 11/05/24 20:15 10 ML Pantoprazole Sodium 80 mg BID IV 10/31/24 22:00 11/05/24 20:13 80 MG Metoprolol Tartrate 12.5 mg BID PO 11/01/24 10:00 11/05/24 20:13 12.5 MG Ibuprofen 600 mg Q6HP PRN PO 11/01/24 23:15 11/03/24 00:04 600 MG Metoclopramide HCl 5 mg Q8HR IV 11/02/24 14:00 11/06/24 05:24 5 MG Micafungin Sodium 100 mg/Sodium Chloride 100 ml @ 100 mls/hr DAILY IV 11/02/24 10:00 11/05/24 10:09 100 MLS/HR Enoxaparin Sodium 30 mg DAILY SC 11/03/24 10:00 11/05/24 10:10 30 MG Meropenem 50 ml @ 17 mls/hr Q12HR IV 11/03/24 22:00 11/05/24 20:30 17 MLS/HR Laboratory Results Laboratory Tests 11/06/24 03:00 Chemistry Test 11/06/24 03:00 Calcium Level 8.3 mg/dL (8.7-10.4) L Phosphorus Level 3.6 mg/dL (2.4-5.1) Urinalysis Test 10/05/24 15:05 10/11/24 18:00 10/26/24 20:33 Urine Mucus Few (None Seen) Urine Total Protein 85.0 mg/dL (1-14) H Urine Creatinine 48.05 mg/dL (30.0-125.0) Urine Sodium 76 mmol/L (40-220) Urine Color Light-yellow (Yellow) Urine Clarity Clear (Clear) Urine pH 7.0 (5.0-9.0) Urine Specific [place] 1.014 (1.001-1.035) Urine Protein 1+ (Negative) H Urine Ketones Negative (Negative) Urine Blood 1+ /uL (Negative) H Urine Nitrite Negative (Negative) Urine Bilirubin Negative (Negative) Urine Urobilinogen Normal mg/dL (Negative) Urine Leukocyte Esterase Negative /uL (Negative) Urine RBC 1 /hpf (0 - 3) Urine Microscopic WBC 3 /HPF (0-3) Urine Squamous Epithelial Cells None seen /hpf (<5) Urine Bacteria Few /hpf (None Seen) H Urine Glucose Normal mg/dL (Normal) Blood Gas Results Test 11/06/24 08:29 Arterial Blood pH 7.500 (7.350-7.450) FiO2 % 30.0 Microbiology Microbiology Date/Time Source Procedure Growth Status 11/04/24 15:20 Blood Blood Culture - Preliminary NO GROWTH AFTER 24 HOURS OF INCUBATION. Resulted 10/31/24 21:00 Voided Urine Urine Culture - Final Complete 10/18/24 09:21 Pleural Fluid Gram Stain - Final Complete 10/18/24 09:21 Pleural Fluid Body Fluid Culture - Final Complete 10/16/24 12:05 Bronchial Washings Gram Stain - Final Complete 10/16/24 12:05 Bronchial Washings Respiratory Culture - Final Complete 10/04/24 17:10 Nose MRSA Screen - Final Complete Labs and/or images reviewed: Labs reviewed by me, Image(s) reviewed by me Assessment/Plan Assessment/Plan Impression: -severe septic shock -pneumoperitoneum secondary to perforated gastric ulcer -acute kidney injury, hemodynamically mediated, probable VMN -acute hypoxic respiratory failure -shock liver -nicotine dependence -history of CVA -right upper extremity DVT -multifocal pneumonia, probable Gram-positive/Gram-negative etiology -anemia secondary to nutrition, renal failure -bilateral pleural effusions -small left pneumothorax -Failure of ventilator weaning, status post tracheostomy -fungemia Plan: Events: No events overnight. Patient currently on CPAP. Continues to have intermittent fevers. Blood cultures negative thus far. Questionable narcotic withdrawal. Unable to perform MRCP secondary to inability to hold breath as well as artifacts on cholecystostomy tube -GI consultation: Case discussed. Continue Protonix IV -increase tube feeding to 50 mL/hour as tolerated -increase metoprolol tartrate to 25 mg p.o. b.i.d. -antibiotic therapy: Zosyn, Zyvox, micafungin -nephrology consultation: Daily assessment for hemodialysis -repeat labs, chest x-ray, ABG in a.m. Critical care time spent with patient discussing and formulating plan of care: 40 minutes. This does not include time spent performing procedures. This medical document was created using an electronic medical record system with [employer] dictation system. Although this document has been carefully reviewed, there may still be some phonetic and typographical errors. These areas are purely typographical due to imperfections of the software programs, and do not reflect any compromise in the patient's medical care. Plan discussed with: Patient, Other (RN) My Orders Orders - CHEYENNE PIKE NP Procedure Category Date Status Time Abg W/ Co-Ox RT 11/06/24 Logged 06:00 Metoprolol Tartrate PHA 11/06/24 Transmitted Tablet (Lopressor Ta 10:00 Hydrocodone-Acet PHA 11/06/24 Transmitted 5/325mg Tab ([place] 09:15 Metoclopramide Oral PHA 11/06/24 Transmitted Soln (Reglan Oral So 14:00 Lactulose Oral PHA 11/06/24 Transmitted 09:15 Date of Service: Nov 06, 2024 Billing Provider: CHEYENNE PIKE NP Common Visit Codes: 99395-[facility] 30-74 MIN CHEYENNE PIKE NP Nov 06, 2024 09:22
[2024-11-06] MEDS ORDERED: Nepro With Carb Steady 1 Liter Bottle GT SCH (09:30)
--- NOTE | 2024-11-06 10:39 | DVHPN2 ---
Progress Note - Dictate Date Seen: Nov 06, 2024 Medical Necessity Reason Pt with a Central, PICC or Fol: No The following are medically ne: Central Line, Gómez Catheter Reason for gómez catheter: Strict I&O Subjective Mr. Perez is a 48 years old right-handed gentleman with a history of hypertension, dyslipidemia, multiple strokes, he was brought to the [facility] on 10/04/2024 with a chief company of recurrent syncope, in the hospital, the patient was found to have perforated viscus, and he went through surgical treatment, he was hospital course has been complicated with sepsis, septic shock, pneumonia, right upper extremity DVT. With appropriate treatment, the patient has improved, but he does not mentally recover as anticipated. I saw him on 08/23/2023 for TIA I have seen and examined the patient, discussed with his nurse, he is awake, eyes are wide open, and watch TV, he moves the left leg, the muscle power is no less than 3-4/5 but he does not follow my verbal commands T-max: 101.5 Blood culture, Urinalysis, 08/22/2023: Unremarkable UDS, 08/22/2023: Negative WBC/Hb/PLT'/MCV, 08/22/2023: 10.8/13.1/184/87.4, 10/28/2024: 15/8/487/89.3 10/31/2024: 24.3/9.1/77/88.4 Troponin 1 high-sensitivity, 08/22/2023: 336, 273/300 BUNs/CR, 08/22/2023: 15/1.45 10/31/2024: Two 9/2.42 GFR, 08/22/2023: 59 Liver function test, 10/04/2024: Unremarkable TBI/AST/ALT/AP, 10/04/2024: 0.6/410/335/31, 10/05/2024: 1.3/582/423/39, 10/31/2024: 3.6/54/98/117 TG/CHO L/LDL/HDL, 08/2023: 136/166/111/39 TSH, 08/23/2023: 4.25 DONAL, 08/23/2023: 1. No evidence of intracardiac source of embolus in the study conducted today. 2. Normal valves without significant masses or change vegetations were discernible. 3. No evidence of intra-atrial shunting by bubble study and color Doppler. 4. Mild atherosclerotic plaquing was visualized in the arch of the aorta without evidence of dissection in the visualized part CT head, 10/24/2024: 1. No intracranial hemorrhage or mass effect. 2. [id number] chronic microvascular ischemic changes. 3. Old bilateral basal ganglia lacunar infarcts. 4. Small bilateral mastoid effusions. CT abdomen/pelvis, 10/04/2024: 1. Extensive intra-abdominal free air concerning for perforated viscus. Surgical consultation is recommended. 2. Enteritis is seen in multiple loops of small bowel in the left hemiabdomen. 3. Moderate abdominopelvic ascites. 4. Small right pleural effusion. CTA neck, head, 08/22/2023:1. CTA head demonstrates no evidence of large vessel occlusion, aneurysm, or significant stenosis. 2. CTA neck demonstrates no evidence of carotid or vertebral dissection or significant stenosis. 3. No noncontrast CT head was performed. 4. Additional findings as detailed above MRI head, 08/23/2023: No acute infarct, intracranial hemorrhage, mass effect, or hydrocephalus. Moderate periventricular and deep subcortical white matter T2 hyperintensities which are nonspecific, but most likely related to sequela of chronic microvascular ischemic changes (I have reviewed the MRI films with our in-house radiologist, Dr. Black, the patient has bilateral multiple subacute/chronic infarcts) MRI head, 11/01/2024: No acute cerebrovascular ischemia. [id number] chronic microvascular ischemic changes. Bilateral mastoid effusions. Old bilateral basal ganglia / lopes radiata infarcts. vital signs Vital Sign Date Time Temp Pulse Resp B/P (MAP) Pulse Ox O2 Delivery O2 Flow Rate FiO2 11/06/24 10:10 99 23 153/82 (105) 100 30 11/06/24 09:03 101.5 11/06/24 06:00 Mechanical Ventilator+ Total Intake and Output 11/05/24 11/05/24 11/06/24 15:00 23:00 07:00 Intake Total 151 ml 187 ml 470 ml Output Total 1000 ml 602 ml Balance 151 ml -813 ml -132 ml medications Current Medications Medications Dose Ordered Sig/Wally Route Start Time Stop Time Status Last Admin Dose Admin Ondansetron HCl 4 mg Q4HP PRN IV 10/04/24 11:45 Morphine Sulfate 2 mg Q4HPRN PRN IV 10/04/24 11:45 Cancel Nitroglycerin 0.4 mg Q5MINP PRN SL 10/04/24 11:45 Morphine Sulfate 2 mg Q30M PRN IV 10/04/24 11:45 Cancel Lorazepam 50 mg/ Sodium Chloride 50 ml @ 1 mls/hr Q24H IV 10/04/24 18:15 Cancel Amino Acids 0 ml @ 0 mls/hr PER PHARMACY IV 10/05/24 14:30 UNV Diagnostic Test (Pha) 1 strip Q6HR 10/05/24 18:00 11/06/24 05:24 1 STRIP Insulin Human Regular FOLLOW SLIDING SCALE Q6HR SC 10/05/24 18:00 11/03/24 17:23 2 UNITS Dextrose 50 ml UD IV 10/05/24 14:45 Meropenem 50 ml @ 17 mls/hr Q12HR IV 10/07/24 10:00 UNV Labetalol HCl 10 mg Q2HPRN PRN IV 10/08/24 09:30 11/06/24 09:01 10 MG Levalbuterol HCl 0.625 mg Q6HR NEB 10/13/24 12:00 11/06/24 06:13 0.625 MG Ipratropium [place] 0.5 mg Q6HR NEB 10/13/24 12:00 11/06/24 06:13 0.5 MG Norepinephrine Bitartrate 32 mg/ Sodium Chloride 250 ml @ 0.938 mls/ hr Q24H IV 10/14/24 10:15 Hold 10/30/24 21:15 0.938 MLS/HR Morphine Sulfate 2 mg Q4HPRN PRN IV 10/21/24 11:30 11/03/24 13:31 2 MG Nicardipine/ Sodium Chloride 200 ml @ 50 mls/hr Q4H IV 10/22/24 08:45 10/30/24 15:34 75 MLS/HR Acetaminophen 650 mg Q6HP PRN GT 10/22/24 09:00 11/06/24 09:03 650 MG Metoprolol Tartrate 1.25 mg Q6HPRN PRN IV 10/27/24 09:45 10/31/24 12:17 1.25 MG Sucralfate 1 gm BID@0600,2200 GT 10/28/24 22:00 11/06/24 05:24 1 GM Pantoprazole Sodium 50 ml @ 0 mls/hr Q0M IV 10/28/24 16:15 Cancel Midazolam HCl 1 mg Q2HP PRN IV 10/30/24 16:45 11/03/24 15:29 1 MG Epoetin Roger-epbx 10,000 unit MWF@2100 SC 10/31/24 21:00 11/05/24 20:30 10,000 UNIT Vancomycin HCl 0 ml @ 0 mls/hr UD IV 10/31/24 12:45 Acetaminophen 650 mg Q6HP PRN [place] 10/31/24 13:30 11/06/24 05:26 650 MG Sodium Chloride 10 ml QSHIFT@10,22 IV 10/31/24 22:00 11/05/24 20:15 10 ML Pantoprazole Sodium 80 mg BID IV 10/31/24 22:00 11/05/24 20:13 80 MG Ibuprofen 600 mg Q6HP PRN PO 11/01/24 23:15 11/03/24 00:04 600 MG Micafungin Sodium 100 mg/Sodium Chloride 100 ml @ 100 mls/hr DAILY IV 11/02/24 10:00 11/06/24 09:06 100 MLS/HR Enoxaparin Sodium 30 mg DAILY SC 11/03/24 10:00 11/05/24 10:10 30 MG Meropenem 50 ml @ 17 mls/hr Q12HR IV 11/03/24 22:00 11/05/24 20:30 17 MLS/HR Metoprolol Tartrate 25 mg BID PO 11/06/24 10:00 UNV Acetaminophen/ Hydrocodone Bitart 1 tab Q4HPRN PRN PO 11/06/24 09:15 UNV Metoclopramide HCl 10 mg Q8HR GT 11/06/24 14:00 UNV Enteral Nutritional Formula 1,000 ml 50ML/HR GT 11/06/24 09:30 objective General: the patient is well developed and nourished. No acute distress. MENTAL STATUS: Subjective SPEECH, LANGUAGE, HIGHER CORTICAL FUNCTION: He does not vocalize/status post tracheostomy. CRANIAL NERVES:Intact visual ansari to confrontation (visual thread). Pupils are equal, round and reactive. EOMs full and conjugate. Mandibular strength intact. Facial muscles symmetrical and strength intact. SENSATION: Sensation to touch and pinprick is unremarkable MOTOR: Normal muscle bulk. No fasciculations. No abnormal movements or posturing. He moves left arm right leg REFLEXES: Deep tendon reflexes are increased bilaterally, clonus in both knees . No pathological reflexes. CEREBELLAR/COORDINATION: Deferred GAIT/STATION: deferred laboratory and microbiology Laboratory Tests 11/06/24 03:00 Test 11/06/24 03:00 Range/Units Serum Glucose 100 74-106 mg/dL Problem List Altered mental status Metabolic encephalopathy secondary to sepsis, septic shock, pneumonia Hypoxic encephalopathy Viscus perforation status post surgical repair GI bleeding Anemia Fever/ Sepsis/septic shock Respiratory failure S/P tracheostomy Multiple strokes Secondary to history methamphetamine, cocaine, alcohol use History of alcohol abuse History of cocaine, methamphetamine abuse Hyperreflexia secondary to multiple strokes Assessment/Plan Monitoring Supportive treatment ICU care Stabilize vitals Respiratory support/vent management Blood culture Follow-up labs IV antibiotics Resume Aspirin 81 mg daily later TPN Quit tobacco smoking No more alcohol, street drug abuse Stroke risk factors discussed More recommended per clinical course This medical document was created using an electronic medical record system with [employer] dictation system. Although this document has been carefully reviewed, there may still be some phonetic and typographical errors. These areas are purely typographical due to imperfections of the software programs, and do not reflect any compromise in the patient's medical care. Prognosis poor Dietary Evaluation Review Comments: 1. Continue TPN to meet at least 75% estimated needs 2. Continue current POC Expected Outcomes/Goals: FU 2-3 days to meet adequate energy & protein within 7 days of NPO Protein Calorie Malnutrition: Severe (rn) Plan discussed with: Other CC Plasma Assessment Blood Product Administration S: [id number] LEANDRO BLACK MD Nov 06, 2024 10:39
--- NOTE | 2024-11-06 10:44 | DVHPN2 ---
Progress Note Date Seen: Nov 06, 2024 Resident Creating Document: KWASI MILLAN Medical Necessity Reason Pt with a Central, PICC or Fol: No The following are medically ne: Central Line, Gómez Catheter Reason for gómez catheter: Strict I&O Subjective Review of Systems Patient was seen today at bedside in ICU On CPAP trial Patient with a intermittent fever Repeat blood culture preliminary report no growth Patient with ongoing leukocytosis Patient has intermittent fever H&H is stable Objective vital signs Vital Sign Date Time Temp Pulse Resp B/P (MAP) Pulse Ox O2 Delivery O2 Flow Rate FiO2 11/06/24 10:10 99 23 153/82 (105) 100 30 11/06/24 09:03 101.5 11/06/24 06:00 Mechanical Ventilator+ Total Intake and Output 11/05/24 11/05/24 11/06/24 14:59 22:59 06:59 Intake Total 151 ml 187 ml 470 ml Output Total 1000 ml 602 ml Balance 151 ml -813 ml -132 ml medications Current Medications Medications Dose Ordered Sig/Wally Route Start Time Stop Time Status Last Admin Dose Admin Ondansetron HCl 4 mg Q4HP PRN IV 10/04/24 11:45 Morphine Sulfate 2 mg Q4HPRN PRN IV 10/04/24 11:45 Cancel Nitroglycerin 0.4 mg Q5MINP PRN SL 10/04/24 11:45 Morphine Sulfate 2 mg Q30M PRN IV 10/04/24 11:45 Cancel Lorazepam 50 mg/ Sodium Chloride 50 ml @ 1 mls/hr Q24H IV 10/04/24 18:15 Cancel Amino Acids 0 ml @ 0 mls/hr PER PHARMACY IV 10/05/24 14:30 UNV Diagnostic Test (Pha) 1 strip Q6HR 10/05/24 18:00 11/06/24 05:24 1 STRIP Insulin Human Regular FOLLOW SLIDING SCALE Q6HR SC 10/05/24 18:00 11/03/24 17:23 2 UNITS Dextrose 50 ml UD IV 10/05/24 14:45 Meropenem 50 ml @ 17 mls/hr Q12HR IV 10/07/24 10:00 UNV Labetalol HCl 10 mg Q2HPRN PRN IV 10/08/24 09:30 11/06/24 09:01 10 MG Levalbuterol HCl 0.625 mg Q6HR NEB 10/13/24 12:00 11/06/24 06:13 0.625 MG Ipratropium [place] 0.5 mg Q6HR NEB 10/13/24 12:00 11/06/24 06:13 0.5 MG Norepinephrine Bitartrate 32 mg/ Sodium Chloride 250 ml @ 0.938 mls/ hr Q24H IV 10/14/24 10:15 Hold 10/30/24 21:15 0.938 MLS/HR Morphine Sulfate 2 mg Q4HPRN PRN IV 10/21/24 11:30 11/03/24 13:31 2 MG Nicardipine/ Sodium Chloride 200 ml @ 50 mls/hr Q4H IV 10/22/24 08:45 10/30/24 15:34 75 MLS/HR Acetaminophen 650 mg Q6HP PRN GT 10/22/24 09:00 11/06/24 09:03 650 MG Metoprolol Tartrate 1.25 mg Q6HPRN PRN IV 10/27/24 09:45 10/31/24 12:17 1.25 MG Sucralfate 1 gm BID@0600,2200 GT 10/28/24 22:00 11/06/24 05:24 1 GM Pantoprazole Sodium 50 ml @ 0 mls/hr Q0M IV 10/28/24 16:15 Cancel Midazolam HCl 1 mg Q2HP PRN IV 10/30/24 16:45 11/03/24 15:29 1 MG Epoetin Roger-epbx 10,000 unit MWF@2100 SC 10/31/24 21:00 11/05/24 20:30 10,000 UNIT Vancomycin HCl 0 ml @ 0 mls/hr UD IV 10/31/24 12:45 Acetaminophen 650 mg Q6HP PRN RI 10/31/24 13:30 11/06/24 05:26 650 MG Sodium Chloride 10 ml QSHIFT@, IV 10/31/24 22:00 11/05/24 20:15 10 ML Pantoprazole Sodium 80 mg BID IV 10/31/24 22:00 11/05/24 20:13 80 MG Ibuprofen 600 mg Q6HP PRN PO 11/01/24 23:15 11/03/24 00:04 600 MG Micafungin Sodium 100 mg/Sodium Chloride 100 ml @ 100 mls/hr DAILY IV 11/02/24 10:00 11/06/24 09:06 100 MLS/HR Enoxaparin Sodium 30 mg DAILY SC 11/03/24 10:00 11/05/24 10:10 30 MG Meropenem 50 ml @ 17 mls/hr Q12HR IV 11/03/24 22:00 11/05/24 20:30 17 MLS/HR Metoprolol Tartrate 25 mg BID PO 11/06/24 10:00 UNV Acetaminophen/ Hydrocodone Bitart 1 tab Q4HPRN PRN PO 11/06/24 09:15 UNV Metoclopramide HCl 10 mg Q8HR GT 11/06/24 14:00 UNV Enteral Nutritional Formula 1,000 ml 50ML/HR GT 11/06/24 09:30 laboratory and microbiology Laboratory Tests 11/06/24 03:00 Test 11/06/24 03:00 Range/Units Serum Glucose 100 74-106 mg/dL Microbiology Date/Time Source Procedure Growth Status 11/04/24 15:20 Blood Blood Culture - Preliminary NO GROWTH AFTER 24 HOURS OF INCUBATION. Resulted 10/31/24 21:00 Voided Urine Urine Culture - Final Complete 10/18/24 09:21 Pleural Fluid Gram Stain - Final Complete 10/18/24 09:21 Pleural Fluid Body Fluid Culture - Final Complete 10/16/24 12:05 Bronchial Washings Gram Stain - Final Complete 10/16/24 12:05 Bronchial Washings Respiratory Culture - Final Complete 10/04/24 17:10 Nose MRSA Screen - Final Complete Problem List/Assessment/Plan Problem List/Assessment/Plan Assessment and plan (1) Cholecystitis (2) TIA (transient ischemic attack) (3) Altered mental status (4) Severe anemia (5) Perforated viscus (6) NSTEMI (non-ST elevated myocardial infarction) (7) GI bleed (8) Septic shock (9) Leukocytosis Events Patient was seen today at bedside in ICU On CPAP trial Patient with a intermittent fever Repeat blood culture preliminary report no growth Patient with ongoing leukocytosis Patient has intermittent fever H&H is stable Plan Ordered HIDA scan as MRI could not be done Continue NG-tube feeding Get MRI with MRCP-as per nursing staff patient is MRI was on hold as patient can not hold breath for 15 minutes Recommending for surgical re-evaluation for possible cholecystectomy Monitor CBC, CMP Continue IV ppi Protonix 80 mg q.12 hours and taper off the IV Protonix drip Continue current antibiotic Plan discussed with Dr. Chanda Stoddard , nursing staff, Total time spent on patient evaluation, chart review, assessment and plan, discussion discussion >35 minutes Plan discussed with: Patient (rn), Other My Orders My Orders Orders - KWASI MILLAN Procedure Category Date Status Time Vancomycin,Random LAB 11/07/24 Verified 05:00 Nm Hida Scan NM 11/06/24 Logged 09:41 Dietary Evaluation Review Comments: 1. Continue TPN to meet at least 75% estimated needs 2. Continue current POC Expected Outcomes/Goals: FU 2-3 days to meet adequate energy & protein within 7 days of NPO Protein Calorie Malnutrition: Severe (rn) CC Plasma Assessment Blood Product Administration S: [id number] KWASI MILLAN RESIDENT Nov 06, 2024 10:44
[2024-11-06] MEDS: LACTULOSE 20Gm/30ML SOLN GT ONE (10:47)
[2024-11-06] MEDS: METOPROLOL TARTRATE 25 MG TAB PO SCH (13:03)
[2024-11-06] MEDS: METOCLOPRAMIDE 10 mg/10ml ORAL soln GT SCH (14:00)
--- NOTE | 2024-11-06 14:14 | DVHPN2 ---
Progress Note - Dictate Date Seen: Nov 06, 2024 Medical Necessity Reason Pt with a Central, PICC or Fol: No The following are medically ne: Central Line, Gómez Catheter Reason for gómez catheter: Strict I&O vital signs Vital Sign Date Time Temp Pulse Resp B/P (MAP) Pulse Ox O2 Delivery O2 Flow Rate FiO2 11/06/24 13:30 112 27 166/91 (116) 100 11/06/24 12:50 Trach Collar 10.0 11/06/24 12:50 35 35 11/06/24 12:00 100.6 100.6 Total Intake and Output 11/05/24 11/05/24 11/06/24 15:00 23:00 07:00 Intake Total 151 ml 187 ml 470 ml Output Total 1000 ml 602 ml Balance 151 ml -813 ml -132 ml medications Current Medications Medications Dose Ordered Sig/Wally Route Start Time Stop Time Status Last Admin Dose Admin Ondansetron HCl 4 mg Q4HP PRN IV 10/04/24 11:45 Morphine Sulfate 2 mg Q4HPRN PRN IV 10/04/24 11:45 Cancel Nitroglycerin 0.4 mg Q5MINP PRN SL 10/04/24 11:45 Morphine Sulfate 2 mg Q30M PRN IV 10/04/24 11:45 Cancel Lorazepam 50 mg/ Sodium Chloride 50 ml @ 1 mls/hr Q24H IV 10/04/24 18:15 Cancel Amino Acids 0 ml @ 0 mls/hr PER PHARMACY IV 10/05/24 14:30 UNV Diagnostic Test (Pha) 1 strip Q6HR 10/05/24 18:00 11/06/24 12:00 1 STRIP Insulin Human Regular FOLLOW SLIDING SCALE Q6HR SC 10/05/24 18:00 11/03/24 17:23 2 UNITS Dextrose 50 ml UD IV 10/05/24 14:45 Meropenem 50 ml @ 17 mls/hr Q12HR IV 10/07/24 10:00 UNV Labetalol HCl 10 mg Q2HPRN PRN IV 10/08/24 09:30 11/06/24 13:04 10 MG Levalbuterol HCl 0.625 mg Q6HR NEB 10/13/24 12:00 11/06/24 11:56 0.625 MG Ipratropium [place] 0.5 mg Q6HR NEB 10/13/24 12:00 11/06/24 11:56 0.5 MG Norepinephrine Bitartrate 32 mg/ Sodium Chloride 250 ml @ 0.938 mls/ hr Q24H IV 10/14/24 10:15 Hold 10/30/24 21:15 0.938 MLS/HR Morphine Sulfate 2 mg Q4HPRN PRN IV 10/21/24 11:30 11/03/24 13:31 2 MG Nicardipine/ Sodium Chloride 200 ml @ 50 mls/hr Q4H IV 10/22/24 08:45 10/30/24 15:34 75 MLS/HR Acetaminophen 650 mg Q6HP PRN GT 10/22/24 09:00 11/06/24 09:03 650 MG Metoprolol Tartrate 1.25 mg Q6HPRN PRN IV 10/27/24 09:45 10/31/24 12:17 1.25 MG Sucralfate 1 gm BID@0600,2200 GT 10/28/24 22:00 11/06/24 05:24 1 GM Pantoprazole Sodium 50 ml @ 0 mls/hr Q0M IV 10/28/24 16:15 Cancel Midazolam HCl 1 mg Q2HP PRN IV 10/30/24 16:45 11/03/24 15:29 1 MG Epoetin Roger-epbx 10,000 unit MWF@2100 SC 10/31/24 21:00 11/05/24 20:30 10,000 UNIT Vancomycin HCl 0 ml @ 0 mls/hr UD IV 10/31/24 12:45 Acetaminophen 650 mg Q6HP PRN MA 10/31/24 13:30 11/06/24 05:26 650 MG Sodium Chloride 10 ml QSHIFT@10,22 IV 10/31/24 22:00 11/06/24 10:49 10 ML Pantoprazole Sodium 80 mg BID IV 10/31/24 22:00 11/06/24 10:49 80 MG Ibuprofen 600 mg Q6HP PRN PO 11/01/24 23:15 11/03/24 00:04 600 MG Micafungin Sodium 100 mg/Sodium Chloride 100 ml @ 100 mls/hr DAILY IV 11/02/24 10:00 11/06/24 09:06 100 MLS/HR Enoxaparin Sodium 30 mg DAILY SC 11/03/24 10:00 11/06/24 10:48 30 MG Meropenem 50 ml @ 17 mls/hr Q12HR IV 11/03/24 22:00 11/06/24 10:00 17 MLS/HR Metoprolol Tartrate 25 mg BID PO 11/06/24 10:00 11/06/24 13:03 25 MG Acetaminophen/ Hydrocodone Bitart 1 tab Q4HPRN PRN PO 11/06/24 09:15 Metoclopramide HCl 5 mg Q8HR GT 11/06/24 14:00 Enteral Nutritional Formula 1,000 ml 50ML/HR GT 11/06/24 09:30 laboratory and microbiology Laboratory Tests 11/06/24 03:00 Test 11/06/24 03:00 Range/Units Serum Glucose 100 74-106 mg/dL Assessment/Plan Impression Acute hypoxemic respiratory failure S/p tracheostomy Perforated viscus Septic shock Smoker Patient seen and examined in ICU Events S/p tracheostomy Tolerating cpap 12/23 Cultures obtained Blood growing lamar Labs and imaging reviewed ABG reviewed Management Vent support as needed Titrate to maintain sats 90% or above Trache collar Trache care per RT protocols Continue antibiotics and antifungals F/u cultures Bronchodilators Monitor renal function Monitor electrolytes Supplement as needed HD per nephrology Nutritional support Tube feedings DVT prophylaxis Critical care time 35 minutes Dietary Evaluation Review Comments: 1. Continue TPN to meet at least 75% estimated needs 2. Continue current POC Expected Outcomes/Goals: FU 2-3 days to meet adequate energy & protein within 7 days of NPO Protein Calorie Malnutrition: Severe (rn) Plan discussed with: Other (Rn) CC Plasma Assessment Blood Product Administration S: [id number] VALENTE DEE MD Nov 06, 2024 14:14
--- NOTE | 2024-11-06 16:02 | DVHPN2 ---
Progress Note Date Seen: Nov 06, 2024 Medical Necessity Reason Pt with a Central, PICC or Fol: No The following are medically ne: Central Line, Gómez Catheter Reason for gómez catheter: Strict I&O Subjective Patient reports: No new complaints Review of Systems: Deferred Objective vital signs Vital Sign Date Time Temp Pulse Resp B/P (MAP) Pulse Ox O2 Delivery O2 Flow Rate FiO2 11/06/24 15:22 117 183/90 11/06/24 15:15 37 95 11/06/24 15:06 102.4 11/06/24 14:00 Trach Collar 10 35 35 Total Intake and Output 11/05/24 11/05/24 11/06/24 15:00 23:00 07:00 Intake Total 151 ml 187 ml 470 ml Output Total 1000 ml 602 ml Balance 151 ml -813 ml -132 ml medications Current Medications Medications Dose Ordered Sig/Wally Route Start Time Stop Time Status Last Admin Dose Admin Ondansetron HCl 4 mg Q4HP PRN IV 10/04/24 11:45 Morphine Sulfate 2 mg Q4HPRN PRN IV 10/04/24 11:45 Cancel Nitroglycerin 0.4 mg Q5MINP PRN SL 10/04/24 11:45 Morphine Sulfate 2 mg Q30M PRN IV 10/04/24 11:45 Cancel Lorazepam 50 mg/ Sodium Chloride 50 ml @ 1 mls/hr Q24H IV 10/04/24 18:15 Cancel Amino Acids 0 ml @ 0 mls/hr PER PHARMACY IV 10/05/24 14:30 UNV Diagnostic Test (Pha) 1 strip Q6HR 10/05/24 18:00 11/06/24 12:00 1 STRIP Insulin Human Regular FOLLOW SLIDING SCALE Q6HR SC 10/05/24 18:00 11/03/24 17:23 2 UNITS Dextrose 50 ml UD IV 10/05/24 14:45 Meropenem 50 ml @ 17 mls/hr Q12HR IV 10/07/24 10:00 UNV Labetalol HCl 10 mg Q2HPRN PRN IV 10/08/24 09:30 11/06/24 15:22 10 MG Levalbuterol HCl 0.625 mg Q6HR NEB 10/13/24 12:00 11/06/24 11:56 0.625 MG Ipratropium [place] 0.5 mg Q6HR NEB 10/13/24 12:00 11/06/24 11:56 0.5 MG Norepinephrine Bitartrate 32 mg/ Sodium Chloride 250 ml @ 0.938 mls/ hr Q24H IV 10/14/24 10:15 Hold 10/30/24 21:15 0.938 MLS/HR Morphine Sulfate 2 mg Q4HPRN PRN IV 10/21/24 11:30 11/03/24 13:31 2 MG Nicardipine/ Sodium Chloride 200 ml @ 50 mls/hr Q4H IV 10/22/24 08:45 10/30/24 15:34 75 MLS/HR Acetaminophen 650 mg Q6HP PRN GT 10/22/24 09:00 11/06/24 15:06 650 MG Metoprolol Tartrate 1.25 mg Q6HPRN PRN IV 10/27/24 09:45 10/31/24 12:17 1.25 MG Sucralfate 1 gm BID@0600,2200 GT 10/28/24 22:00 11/06/24 05:24 1 GM Pantoprazole Sodium 50 ml @ 0 mls/hr Q0M IV 10/28/24 16:15 Cancel Midazolam HCl 1 mg Q2HP PRN IV 10/30/24 16:45 11/03/24 15:29 1 MG Epoetin Roger-epbx 10,000 unit MWF@2100 SC 10/31/24 21:00 11/05/24 20:30 10,000 UNIT Vancomycin HCl 0 ml @ 0 mls/hr UD IV 10/31/24 12:45 Acetaminophen 650 mg Q6HP PRN OR 10/31/24 13:30 11/06/24 05:26 650 MG Sodium Chloride 10 ml QSHIFT@10,22 IV 10/31/24 22:00 11/06/24 10:49 10 ML Pantoprazole Sodium 80 mg BID IV 10/31/24 22:00 11/06/24 10:49 80 MG Ibuprofen 600 mg Q6HP PRN PO 11/01/24 23:15 11/03/24 00:04 600 MG Micafungin Sodium 100 mg/Sodium Chloride 100 ml @ 100 mls/hr DAILY IV 11/02/24 10:00 11/06/24 09:06 100 MLS/HR Enoxaparin Sodium 30 mg DAILY SC 11/03/24 10:00 11/06/24 10:48 30 MG Meropenem 50 ml @ 17 mls/hr Q12HR IV 11/03/24 22:00 11/06/24 10:00 17 MLS/HR Metoprolol Tartrate 25 mg BID PO 11/06/24 10:00 11/06/24 13:03 25 MG Acetaminophen/ Hydrocodone Bitart 1 tab Q4HPRN PRN PO 11/06/24 09:15 Metoclopramide HCl 5 mg Q8HR GT 11/06/24 14:00 11/06/24 14:00 5 MG Enteral Nutritional Formula 1,000 ml 50ML/HR GT 11/06/24 09:30 Examination: GENERAL:Normal, HEENT:Abnormal, LUNGS:Normal, CVS:Normal, ABDOMEN:Normal, MSK:Abnormal, NEURO:Normal laboratory and microbiology Laboratory Tests 11/06/24 03:00 Test 11/06/24 03:00 Range/Units Serum Glucose 100 74-106 mg/dL Microbiology Date/Time Source Procedure Growth Status 11/04/24 15:20 Blood Blood Culture - Preliminary NO GROWTH AFTER 48 HOURS OF INCUBATION. Resulted 10/31/24 21:00 Voided Urine Urine Culture - Final Complete 10/18/24 09:21 Pleural Fluid Gram Stain - Final Complete 10/18/24 09:21 Pleural Fluid Body Fluid Culture - Final Complete 10/16/24 12:05 Bronchial Washings Gram Stain - Final Complete 10/16/24 12:05 Bronchial Washings Respiratory Culture - Final Complete 10/04/24 17:10 Nose MRSA Screen - Final Complete Problem List/Assessment/Plan Problem List/Assessment/Plan Acute kidney injury /ATN requiring acute inpatient hemodialysis Acute respiratory failure -> now trach Perforated gastric ulcer status post exploratory laparoscopic surgery Hypokalemia Anemia due to chronic disease/inflammation tachycardia + Bcx fungemia recs Hemodialysis 11/03 dialysis catheter removed after dialysis given fungemia We will monitor him off dialysis Evaluate [employer] needs daily get blood cx ivf /hold bumex Plan discussed with: Patient My Orders My Orders Orders - DAYANARA BLACKWOOD MD Procedure Category Date Status Time Lactated Ringer's PHA 11/06/24 In Process 08:30 Dietary Evaluation Review Comments: 1. Continue TPN to meet at least 75% estimated needs 2. Continue current POC Expected Outcomes/Goals: FU 2-3 days to meet adequate energy & protein within 7 days of NPO Protein Calorie Malnutrition: Severe (rn) CC Plasma Assessment Blood Product Administration S: [id number] DAYANARA BLACKWOOD MD Nov 06, 2024 16:02
[2024-11-07] VITALS (107 sets, daily range): BP systolic 57–167; BP diastolic 25–102; PULSE 79–123; RESP 14–55; TEMP 98.2–101.3; O2SAT 87–100
[2024-11-07 03:40] LABS: Hematocrit 30.9 % (41.0-53.0); Hemoglobin 10.2 g/dL (13.5-17.5); Mean Corpuscular Hemoglobin 29.3 pg (28.0-32.0); Mean Corpuscular Volume 88.6 fL (80.0-100.0)
[2024-11-07 03:49] LABS: Chloride 103 mmol/L (98-107); Sodium 140 mmol/L (136-145)
[2024-11-07 03:50] LABS: Anion Gap 15 (5-15); Carbon Dioxide 22 mmol/L (20-31)
[2024-11-07 03:52] LABS: Calcium 8.6 mg/dL (8.7-10.4); Potassium 3.2 mmol/L (3.5-5.1)
[2024-11-07 03:55] LABS: BUN/Creatinine Ratio 16.3 (10.0-20.0)
[2024-11-07 03:56] LABS: Blood Urea Nitrogen 65 mg/dL (9-23); Glucose 111 mg/dL (74-106)
[2024-11-07 04:17] LABS: Total Cells Counted 100.0 (100)
[2024-11-07] MEDS: POTASSIUM CHL 20MEQ/100ML 100 ML IV SCH (04:51)
[2024-11-07 08:17] LABS: Base Excess -3.3 mmol/L (-2.0-3.0)
[2024-11-07 10:17] LABS: Albumin 3.5 g/dL (3.2-4.8)
[2024-11-07 10:22] LABS: Alanine Aminotransferase 66.0 U/L (7-40); Alkaline Phosphatase 584.0 U/L (46-116); Bilirubin, Direct 1.1 mg/dL (<0.3); Bilirubin, Total 1.4 mg/dL (0.2-1.0); Total Protein 8.3 g/dL (5.7-8.2)
[2024-11-07 10:27] LABS: INR 1.18 (0.9-1.15); Partial Thromboplastin Time 32.6 SEC (24.5-34.5); Prothrombin Time 12.3 sec (9.3-11.8)
--- NOTE | 2024-11-07 11:03 | DVHPN2 ---
Progress Note Date Seen: Nov 07, 2024 Medical Necessity Reason Pt with a Central, PICC or Fol: No The following are medically ne: Central Line, Gómez Catheter Reason for gómez catheter: Strict I&O Subjective Patient reports: No new complaints Other Systems: Patient seen and examined by myself today in follow-up, patient trached with trach collar Objective vital signs Vital Sign Date Time Temp Pulse Resp B/P (MAP) Pulse Ox O2 Delivery O2 Flow Rate FiO2 11/07/24 10:45 99.0 116 18 135/77 (96) 100 99.0 11/07/24 09:50 Trach Collar 8 30 Cool Aerosol 30 Total Intake and Output 11/06/24 11/06/24 11/07/24 15:00 23:00 07:00 Intake Total 946 ml 1450 ml 637 ml Output Total 776 ml 357 ml Balance 946 ml 674 ml 280 ml medications Current Medications Medications Dose Ordered Sig/Wally Route Start Time Stop Time Status Last Admin Dose Admin Ondansetron HCl 4 mg Q4HP PRN IV 10/04/24 11:45 Morphine Sulfate 2 mg Q4HPRN PRN IV 10/04/24 11:45 Cancel Nitroglycerin 0.4 mg Q5MINP PRN SL 10/04/24 11:45 Morphine Sulfate 2 mg Q30M PRN IV 10/04/24 11:45 Cancel Lorazepam 50 mg/ Sodium Chloride 50 ml @ 1 mls/hr Q24H IV 10/04/24 18:15 Cancel Amino Acids 0 ml @ 0 mls/hr PER PHARMACY IV 10/05/24 14:30 UNV Diagnostic Test (Pha) 1 strip Q6HR 10/05/24 18:00 11/07/24 06:22 1 STRIP Insulin Human Regular FOLLOW SLIDING SCALE Q6HR SC 10/05/24 18:00 11/03/24 17:23 2 UNITS Dextrose 50 ml UD IV 10/05/24 14:45 Meropenem 50 ml @ 17 mls/hr Q12HR IV 10/07/24 10:00 UNV Labetalol HCl 10 mg Q2HPRN PRN IV 10/08/24 09:30 11/06/24 15:22 10 MG Levalbuterol HCl 0.625 mg Q6HR NEB 10/13/24 12:00 11/07/24 06:30 0.625 MG Ipratropium [place] 0.5 mg Q6HR NEB 10/13/24 12:00 11/07/24 06:30 0.5 MG Norepinephrine Bitartrate 32 mg/ Sodium Chloride 250 ml @ 0.938 mls/ hr Q24H IV 10/14/24 10:15 Hold 10/30/24 21:15 0.938 MLS/HR Morphine Sulfate 2 mg Q4HPRN PRN IV 10/21/24 11:30 11/03/24 13:31 2 MG Nicardipine/ Sodium Chloride 200 ml @ 50 mls/hr Q4H IV 10/22/24 08:45 10/30/24 15:34 75 MLS/HR Acetaminophen 650 mg Q6HP PRN GT 10/22/24 09:00 11/06/24 15:06 650 MG Metoprolol Tartrate 1.25 mg Q6HPRN PRN IV 10/27/24 09:45 10/31/24 12:17 1.25 MG Sucralfate 1 gm BID@0600,2200 GT 10/28/24 22:00 11/07/24 06:22 1 GM Pantoprazole Sodium 50 ml @ 0 mls/hr Q0M IV 10/28/24 16:15 Cancel Midazolam HCl 1 mg Q2HP PRN IV 10/30/24 16:45 11/03/24 15:29 1 MG Epoetin Roger-epbx 10,000 unit MWF@2100 SC 10/31/24 21:00 11/05/24 20:30 10,000 UNIT Vancomycin HCl 0 ml @ 0 mls/hr UD IV 10/31/24 12:45 Acetaminophen 650 mg Q6HP PRN [place] 10/31/24 13:30 11/06/24 05:26 650 MG Sodium Chloride 10 ml QSHIFT@10,22 IV 10/31/24 22:00 11/07/24 08:27 10 ML Pantoprazole Sodium 80 mg BID IV 10/31/24 22:00 11/07/24 08:27 80 MG Ibuprofen 600 mg Q6HP PRN PO 11/01/24 23:15 11/06/24 21:16 600 MG Micafungin Sodium 100 mg/Sodium Chloride 100 ml @ 100 mls/hr DAILY IV 11/02/24 10:00 11/07/24 08:27 100 MLS/HR Enoxaparin Sodium 30 mg DAILY SC 11/03/24 10:00 11/07/24 08:28 30 MG Meropenem 50 ml @ 17 mls/hr Q12HR IV 11/03/24 22:00 11/07/24 08:27 17 MLS/HR Metoprolol Tartrate 25 mg BID PO 11/06/24 10:00 11/06/24 13:03 25 MG Acetaminophen/ Hydrocodone Bitart 1 tab Q4HPRN PRN PO 11/06/24 09:15 Metoclopramide HCl 5 mg Q8HR GT 11/06/24 14:00 11/06/24 14:00 5 MG Enteral Nutritional Formula 1,000 ml 50ML/HR GT 11/06/24 09:30 Examination: LUNGS:Normal, CVS:Normal, MSK:Normal laboratory and microbiology Laboratory Tests 11/07/24 03:08 Test 11/07/24 03:08 Range/Units Serum Glucose 111 H 74-106 mg/dL Microbiology Date/Time Source Procedure Growth Status 11/04/24 15:20 Blood Blood Culture - Preliminary NO GROWTH AFTER 48 HOURS OF INCUBATION. Resulted 10/31/24 21:00 Voided Urine Urine Culture - Final Complete 10/18/24 09:21 Pleural Fluid Gram Stain - Final Complete 10/18/24 09:21 Pleural Fluid Body Fluid Culture - Final Complete 10/16/24 12:05 Bronchial Washings Gram Stain - Final Complete 10/16/24 12:05 Bronchial Washings Respiratory Culture - Final Complete 10/04/24 17:10 Nose MRSA Screen - Final Complete Problem List/Assessment/Plan Problem List/Assessment/Plan Assessment/Plan Acute kidney injury likely ATN, FeNa ,> 2% requiring intermittent hemodialysis Acute respiratory failure, patient intubated on ventilator Hemodynamic shock acute blood loss anemia Perforated gastric ulcer status post surgery 10/04 Hyponatremia likely due to volume overload Pneumonia Sepsis Hypomagnesemia Hypokalemia Hypertensive urgency Empyema status post right chest tube Acute blood loss anemia status post PRBC Recommendations Last Hemodialysis 11/03 dialysis catheter removed after dialysis given fungemia Increased urine output Kidney function stable ID consult KCL replacement KCL sulfate IV piggyback We will continue to follow We will evaluate for hemodialysis on a daily basis Critical care spent time 41 minutes Plan discussed with: Patient, Other (Nurse) Dietary Evaluation Review Comments: 1. Continue TPN to meet at least 75% estimated needs 2. Continue current POC Expected Outcomes/Goals: FU 2-3 days to meet adequate energy & protein within 7 days of NPO Protein Calorie Malnutrition: Severe (rn) CC Plasma Assessment Blood Product Administration S: [id number] MILADY ANDERSON MD Nov 07, 2024 11:03
[2024-11-07] MEDS: OMNIPAQUE 12mg/ml 500ml ORAL SOLUTION PO ONE (11:23)
--- NOTE | 2024-11-07 11:23 | DVHPN2 ---
Progress Note Date Seen: Nov 07, 2024 Medical Necessity Reason Pt with a Central, PICC or Fol: No The following are medically ne: Central Line, Gómez Catheter Reason for gómez catheter: Strict I&O Objective vital signs Vital Sign Date Time Temp Pulse Resp B/P (MAP) Pulse Ox O2 Delivery O2 Flow Rate FiO2 11/07/24 10:45 99.0 116 18 135/77 (96) 100 99.0 11/07/24 09:50 Trach Collar 8 30 Cool Aerosol 30 Total Intake and Output 11/06/24 11/06/24 11/07/24 15:00 23:00 07:00 Intake Total 946 ml 1450 ml 637 ml Output Total 776 ml 357 ml Balance 946 ml 674 ml 280 ml medications Current Medications Medications Dose Ordered Sig/Wally Route Start Time Stop Time Status Last Admin Dose Admin Ondansetron HCl 4 mg Q4HP PRN IV 10/04/24 11:45 Morphine Sulfate 2 mg Q4HPRN PRN IV 10/04/24 11:45 Cancel Nitroglycerin 0.4 mg Q5MINP PRN SL 10/04/24 11:45 Morphine Sulfate 2 mg Q30M PRN IV 10/04/24 11:45 Cancel Lorazepam 50 mg/ Sodium Chloride 50 ml @ 1 mls/hr Q24H IV 10/04/24 18:15 Cancel Amino Acids 0 ml @ 0 mls/hr PER PHARMACY IV 10/05/24 14:30 UNV Diagnostic Test (Pha) 1 strip Q6HR 10/05/24 18:00 11/07/24 06:22 1 STRIP Insulin Human Regular FOLLOW SLIDING SCALE Q6HR SC 10/05/24 18:00 11/03/24 17:23 2 UNITS Dextrose 50 ml UD IV 10/05/24 14:45 Meropenem 50 ml @ 17 mls/hr Q12HR IV 10/07/24 10:00 UNV Labetalol HCl 10 mg Q2HPRN PRN IV 10/08/24 09:30 11/06/24 15:22 10 MG Levalbuterol HCl 0.625 mg Q6HR NEB 10/13/24 12:00 11/07/24 06:30 0.625 MG Ipratropium [place] 0.5 mg Q6HR NEB 10/13/24 12:00 11/07/24 06:30 0.5 MG Norepinephrine Bitartrate 32 mg/ Sodium Chloride 250 ml @ 0.938 mls/ hr Q24H IV 10/14/24 10:15 Hold 10/30/24 21:15 0.938 MLS/HR Morphine Sulfate 2 mg Q4HPRN PRN IV 10/21/24 11:30 11/03/24 13:31 2 MG Nicardipine/ Sodium Chloride 200 ml @ 50 mls/hr Q4H IV 10/22/24 08:45 10/30/24 15:34 75 MLS/HR Acetaminophen 650 mg Q6HP PRN GT 10/22/24 09:00 11/06/24 15:06 650 MG Metoprolol Tartrate 1.25 mg Q6HPRN PRN IV 10/27/24 09:45 10/31/24 12:17 1.25 MG Sucralfate 1 gm BID@0600,2200 GT 10/28/24 22:00 11/07/24 06:22 1 GM Pantoprazole Sodium 50 ml @ 0 mls/hr Q0M IV 10/28/24 16:15 Cancel Midazolam HCl 1 mg Q2HP PRN IV 10/30/24 16:45 11/03/24 15:29 1 MG Epoetin Roger-epbx 10,000 unit MWF@2100 SC 10/31/24 21:00 11/05/24 20:30 10,000 UNIT Acetaminophen 650 mg Q6HP PRN ID 10/31/24 13:30 11/06/24 05:26 650 MG Sodium Chloride 10 ml QSHIFT@10,22 IV 10/31/24 22:00 11/07/24 08:27 10 ML Pantoprazole Sodium 80 mg BID IV 10/31/24 22:00 11/07/24 08:27 80 MG Ibuprofen 600 mg Q6HP PRN PO 11/01/24 23:15 11/06/24 21:16 600 MG Micafungin Sodium 100 mg/Sodium Chloride 100 ml @ 100 mls/hr DAILY IV 11/02/24 10:00 11/07/24 08:27 100 MLS/HR Enoxaparin Sodium 30 mg DAILY SC 11/03/24 10:00 11/07/24 08:28 30 MG Meropenem 50 ml @ 17 mls/hr Q12HR IV 11/03/24 22:00 11/07/24 08:27 17 MLS/HR Metoprolol Tartrate 25 mg BID PO 11/06/24 10:00 11/06/24 13:03 25 MG Acetaminophen/ Hydrocodone Bitart 1 tab Q4HPRN PRN PO 11/06/24 09:15 Metoclopramide HCl 5 mg Q8HR GT 11/06/24 14:00 11/06/24 14:00 5 MG Enteral Nutritional Formula 1,000 ml 50ML/HR GT 11/06/24 09:30 laboratory and microbiology Laboratory Tests 11/07/24 03:08 Test 11/07/24 03:08 Range/Units Serum Glucose 111 H 74-106 mg/dL Problem List/Assessment/Plan Problem List/Assessment/Plan 10/10/24 patient had exploratory operation with closure of perforated peptic ulceration about 5 days ago, now concern about possible cholecystitis. GB sludge,GB wall thickened and surounding edema,.LFT's elevated. [patient has history of heavy alcohol use(spouse report). LFTs elevation could be due to liver Ds but cholecystostomy is a reasonable next step, will follow with you 10/14/24 patient appears "surgically stable", will get gastrografin UGI prior to resuming gastric feedings 10/16/24 GASTROGRAFGIN UGI POSSIBLY WITH PERSISTENT LEAK FROM REPAIRED PYLORIC PERFORATION, I HAVE ORDERED A CT SCAN FOR CONFIRMATION 10/24/24 clinically unchanged,being weaned off ventilator, abdomen non distended, tolerating tube feedings, having BM's, KWAN drains with minimal clear drainage, drains removed. 10/26/24 large gastric residual volumes, suspect gastroparesis, vent settings acceptable for tracheostomy, planned for tomorrow 10/27/24 post tracheostomy CXR shows tracheostomy in good locaTION ABOVE THE EVELIA, NO EVIDENCE OF PNEUMOTHORAX OR MEDIASTINAL; WIDENING. i HAVE CALLED PATIENT'S 10/28/24 tracheostomy OK,cxr OK,will sign off, please recall if needed 11/07/24 I am requested to perform a cholecystectomy due to suspicion of persistent GB infection and persistent sepsis. The las CT scan of abdomen and pelvis did not show presence of stones in the GB or evidence of cholecystitis. patient's abdomen is non tender, there is a cholecystostomy in place with scant drainage. I will get a CT scan to r/o other etiology of abdominal infection. Plan discussed with: Patient Dietary Evaluation Review Comments: 1. Continue TPN to meet at least 75% estimated needs 2. Continue current POC Expected Outcomes/Goals: FU 2-3 days to meet adequate energy & protein within 7 days of NPO Protein Calorie Malnutrition: Severe (rn) LOBO BOSWELL MD Nov 07, 2024 11:23
[2024-11-07 12:58] LABS: Protein, Urine 200.7 mg/dL (1-14)
[2024-11-07 13:02] LABS: Magnesium 2.7 mg/dL (1.6-2.6)
--- NOTE | 2024-11-07 15:56 | DVHPN2 ---
Progress Note Date Seen: Nov 07, 2024 Resident Creating Document: KWASI MILLAN Medical Necessity Reason Pt with a Central, PICC or Fol: No The following are medically ne: Central Line, Gómez Catheter Reason for gómez catheter: Strict I&O Subjective Review of Systems Patient is seen today at bedside in ICU Patient with ongoing fever Repeat blood culture negative for any growth Leukocytosis trending up, today WBC 23.6 H&H stable Patient was seen by surgery, recommended per CT abdomen and pelvis with oral contrast Objective vital signs Vital Sign Date Time Temp Pulse Resp B/P (MAP) Pulse Ox O2 Delivery O2 Flow Rate FiO2 11/07/24 15:46 34 100 Trach Collar 8 30 30 11/07/24 15:45 101.1 119 149/96 (113) 101.1 Total Intake and Output 11/06/24 11/06/24 11/07/24 14:59 22:59 06:59 Intake Total 871 ml 1525 ml 637 ml Output Total 776 ml 357 ml Balance 871 ml 749 ml 280 ml medications Current Medications Medications Dose Ordered Sig/Wally Route Start Time Stop Time Status Last Admin Dose Admin Ondansetron HCl 4 mg Q4HP PRN IV 10/04/24 11:45 Morphine Sulfate 2 mg Q4HPRN PRN IV 10/04/24 11:45 Cancel Nitroglycerin 0.4 mg Q5MINP PRN SL 10/04/24 11:45 Morphine Sulfate 2 mg Q30M PRN IV 10/04/24 11:45 Cancel Lorazepam 50 mg/ Sodium Chloride 50 ml @ 1 mls/hr Q24H IV 10/04/24 18:15 Cancel Amino Acids 0 ml @ 0 mls/hr PER PHARMACY IV 10/05/24 14:30 UNV Diagnostic Test (Pha) 1 strip Q6HR 10/05/24 18:00 11/07/24 12:06 1 STRIP Insulin Human Regular FOLLOW SLIDING SCALE Q6HR SC 10/05/24 18:00 11/03/24 17:23 2 UNITS Dextrose 50 ml UD IV 10/05/24 14:45 Meropenem 50 ml @ 17 mls/hr Q12HR IV 10/07/24 10:00 UNV Labetalol HCl 10 mg Q2HPRN PRN IV 10/08/24 09:30 11/06/24 15:22 10 MG Levalbuterol HCl 0.625 mg Q6HR NEB 10/13/24 12:00 11/07/24 11:55 0.625 MG Ipratropium [place] 0.5 mg Q6HR NEB 10/13/24 12:00 11/07/24 11:55 0.5 MG Norepinephrine Bitartrate 32 mg/ Sodium Chloride 250 ml @ 0.938 mls/ hr Q24H IV 10/14/24 10:15 Hold 10/30/24 21:15 0.938 MLS/HR Morphine Sulfate 2 mg Q4HPRN PRN IV 10/21/24 11:30 11/03/24 13:31 2 MG Nicardipine/ Sodium Chloride 200 ml @ 50 mls/hr Q4H IV 10/22/24 08:45 10/30/24 15:34 75 MLS/HR Acetaminophen 650 mg Q6HP PRN GT 10/22/24 09:00 11/06/24 15:06 650 MG Metoprolol Tartrate 1.25 mg Q6HPRN PRN IV 10/27/24 09:45 10/31/24 12:17 1.25 MG Sucralfate 1 gm BID@0600,2200 GT 10/28/24 22:00 11/07/24 06:22 1 GM Pantoprazole Sodium 50 ml @ 0 mls/hr Q0M IV 10/28/24 16:15 Cancel Midazolam HCl 1 mg Q2HP PRN IV 10/30/24 16:45 11/03/24 15:29 1 MG Epoetin Roger-epbx 10,000 unit MWF@2100 SC 10/31/24 21:00 11/05/24 20:30 10,000 UNIT Acetaminophen 650 mg Q6HP PRN NC 10/31/24 13:30 11/06/24 05:26 650 MG Sodium Chloride 10 ml QSHIFT@10,22 IV 10/31/24 22:00 11/07/24 08:27 10 ML Pantoprazole Sodium 80 mg BID IV 10/31/24 22:00 11/07/24 08:27 80 MG Ibuprofen 600 mg Q6HP PRN PO 11/01/24 23:15 11/07/24 15:44 600 MG Micafungin Sodium 100 mg/Sodium Chloride 100 ml @ 100 mls/hr DAILY IV 11/02/24 10:00 11/07/24 08:27 100 MLS/HR Enoxaparin Sodium 30 mg DAILY SC 11/03/24 10:00 11/07/24 08:28 30 MG Meropenem 50 ml @ 17 mls/hr Q12HR IV 11/03/24 22:00 11/07/24 08:27 17 MLS/HR Metoprolol Tartrate 25 mg BID PO 11/06/24 10:00 11/06/24 13:03 25 MG Acetaminophen/ Hydrocodone Bitart 1 tab Q4HPRN PRN PO 11/06/24 09:15 Metoclopramide HCl 5 mg Q8HR GT 11/06/24 14:00 11/06/24 14:00 5 MG Enteral Nutritional Formula 1,000 ml 50ML/HR GT 11/06/24 09:30 laboratory and microbiology Laboratory Tests 11/07/24 03:08 Test 11/07/24 03:08 Range/Units Serum Glucose 111 H 74-106 mg/dL Microbiology Date/Time Source Procedure Growth Status 11/04/24 15:20 Blood Blood Culture - Preliminary NO GROWTH AFTER 72 HOURS OF INCUBATION. Resulted 10/31/24 21:00 Voided Urine Urine Culture - Final Complete 10/18/24 09:21 Pleural Fluid Gram Stain - Final Complete 10/18/24 09:21 Pleural Fluid Body Fluid Culture - Final Complete 10/16/24 12:05 Bronchial Washings Gram Stain - Final Complete 10/16/24 12:05 Bronchial Washings Respiratory Culture - Final Complete 10/04/24 17:10 Nose MRSA Screen - Final Complete Problem List/Assessment/Plan Problem List/Assessment/Plan Assessment and plan (1) Cholecystitis (2) TIA (transient ischemic attack) (3) Altered mental status (4) Severe anemia (5) Perforated viscus (6) NSTEMI (non-ST elevated myocardial infarction) (7) GI bleed (8) Septic shock (9) Leukocytosis Events Patient with ongoing fever Repeat blood culture negative for any growth Leukocytosis trending up, today WBC 23.6 H&H stable Patient was seen by surgery, recommended per CT abdomen and pelvis with oral contrast Patient was on trach collar today Plan Surgery recommendation reviewed and appreciated Pending CT abdomen and pelvis with oral contrast Continue NG-tube feeding Recommendation was to Get MRI with MRCP-as per nursing staff patient is MRI was on hold as patient can not hold breath for 15 minutes Monitor CBC, CMP Continue IV ppi Protonix Continue current antibiotic Plan discussed with Dr. Chanda Stoddard , nursing staff, Total time spent on patient evaluation, chart review, assessment and plan, discussion discussion >35 minutes Plan discussed with: Other (RN) Dietary Evaluation Review Comments: 1. Continue TPN to meet at least 75% estimated needs 2. Continue current POC Expected Outcomes/Goals: FU 2-3 days to meet adequate energy & protein within 7 days of NPO Protein Calorie Malnutrition: Severe (rn) CC Plasma Assessment Blood Product Administration S: [id number] KWASI MILLAN RESIDENT Nov 07, 2024 15:56
--- NOTE | 2024-11-07 16:08 | DVH ---
Exam: CT CT AB PEL WITH ORAL CON ONLY History: r/o abd/pelv abscess Comparison Study: CT CT AB PEL WO CON-NO ORAL OR IV on DOS: 10/24/24, CT CT AB PEL WITH ORAL CON ONLY o n DOS: 10/17/24 Technique: Multidetector CT of the abdomen and pelvis with oral contrast only. Axial, coronal and sa gittal multiplanar reformats were performed by the technologist on a separate workstation. Radiation Dose Information: CT Dose: CTDI volume is 8.12 mGy. Dose-length product is 452.22 mGy*cm Findings: Small left and small to moderate right-sided pleural effusions and associated atelectasis. Right basi lar partially imaged bleb. Partially visualized heart is unremarkable. Redemonstration of percutaneous cholecystostomy tube terminating over the gallbladder fossa. Mild hepatomegaly. Otherwise, liver, spleen, and adrenal glands unremarkable. Mild mesenteric edema l imits evaluation of the pancreas for the pancreatic fat stranding. Kidneys, and ureters unremarkable. Urinary bladder mildly distended with Barrios catheter in place. Foc us of air within the Urinary bladder which is most likely iatrogenic. Mild wall thickening of the uri nary bladder which is most likely from inadequate distension. Prostate measures 3.3 x 5.4 x 3.2 cm. Enteric tube is noted in satisfactory position. There is contrast within the stomach. Mild gastric wa ll thickening. Contrast within a nondistended small-bowel loops. Minimal contrast within the terminal ileum with no contrast passage into the large bowel which is most likely from timing of imaging. Yesenia endix is unremarkable. Large amount of fecal material within the rectum with a rectal probe in place. Small to moderate amount of fecal material within the remainder of the colon. No evidence of intraperitoneal free air. Mild Mesenteric edema. Mild swirling of the mesentery over t he left lower abdomen/ upper hemipelvis No evidence of aortic aneurysm. Mild atherosclerotic calcification of the aorta and bilateral iliacs . No significant lymphadenopathy. Minimal body wall edema. Motion artifact limits evaluation of the lower ribs. No destructive osseous lesions are noted. IMPRESSION: Oral contrast is noted within the stomach and small bowel loops no contrast passing into the large lynette wel which is most likely from timing of imaging. Mild gastric wall thickening . Correlate for mild gastritis. Mild urinary bladder wall thickening which may be from inadequate distension. Correlation with urina lysis is recommended to exclude cystitis. Small left with small to moderate right-sided pleural effusions and associated atelectasis. Additional findings as above.
--- NOTE | 2024-11-07 16:31 | DVHPN2 ---
Progress Note - Dictate Date Seen: Nov 07, 2024 Medical Necessity Reason Pt with a Central, PICC or Fol: No The following are medically ne: Central Line, Gómez Catheter Reason for gómez catheter: Strict I&O vital signs Vital Sign Date Time Temp Pulse Resp B/P (MAP) Pulse Ox O2 Delivery O2 Flow Rate FiO2 11/07/24 15:46 34 100 Trach Collar 8 30 30 11/07/24 15:45 101.1 119 149/96 (113) 101.1 Total Intake and Output 11/06/24 11/06/24 11/07/24 15:00 23:00 07:00 Intake Total 946 ml 1450 ml 637 ml Output Total 776 ml 357 ml Balance 946 ml 674 ml 280 ml medications Current Medications Medications Dose Ordered Sig/Wally Route Start Time Stop Time Status Last Admin Dose Admin Ondansetron HCl 4 mg Q4HP PRN IV 10/04/24 11:45 Morphine Sulfate 2 mg Q4HPRN PRN IV 10/04/24 11:45 Cancel Nitroglycerin 0.4 mg Q5MINP PRN SL 10/04/24 11:45 Morphine Sulfate 2 mg Q30M PRN IV 10/04/24 11:45 Cancel Lorazepam 50 mg/ Sodium Chloride 50 ml @ 1 mls/hr Q24H IV 10/04/24 18:15 Cancel Amino Acids 0 ml @ 0 mls/hr PER PHARMACY IV 10/05/24 14:30 UNV Diagnostic Test (Pha) 1 strip Q6HR 10/05/24 18:00 11/07/24 12:06 1 STRIP Insulin Human Regular FOLLOW SLIDING SCALE Q6HR SC 10/05/24 18:00 11/03/24 17:23 2 UNITS Dextrose 50 ml UD IV 10/05/24 14:45 Meropenem 50 ml @ 17 mls/hr Q12HR IV 10/07/24 10:00 UNV Labetalol HCl 10 mg Q2HPRN PRN IV 10/08/24 09:30 11/06/24 15:22 10 MG Levalbuterol HCl 0.625 mg Q6HR NEB 10/13/24 12:00 11/07/24 11:55 0.625 MG Ipratropium [place] 0.5 mg Q6HR NEB 10/13/24 12:00 11/07/24 11:55 0.5 MG Norepinephrine Bitartrate 32 mg/ Sodium Chloride 250 ml @ 0.938 mls/ hr Q24H IV 10/14/24 10:15 Hold 10/30/24 21:15 0.938 MLS/HR Morphine Sulfate 2 mg Q4HPRN PRN IV 10/21/24 11:30 11/03/24 13:31 2 MG Nicardipine/ Sodium Chloride 200 ml @ 50 mls/hr Q4H IV 10/22/24 08:45 10/30/24 15:34 75 MLS/HR Acetaminophen 650 mg Q6HP PRN GT 10/22/24 09:00 11/06/24 15:06 650 MG Metoprolol Tartrate 1.25 mg Q6HPRN PRN IV 10/27/24 09:45 10/31/24 12:17 1.25 MG Sucralfate 1 gm BID@0600,2200 GT 10/28/24 22:00 11/07/24 06:22 1 GM Pantoprazole Sodium 50 ml @ 0 mls/hr Q0M IV 10/28/24 16:15 Cancel Midazolam HCl 1 mg Q2HP PRN IV 10/30/24 16:45 11/03/24 15:29 1 MG Epoetin Roger-epbx 10,000 unit MWF@2100 SC 10/31/24 21:00 11/05/24 20:30 10,000 UNIT Acetaminophen 650 mg Q6HP PRN [place] 10/31/24 13:30 11/06/24 05:26 650 MG Sodium Chloride 10 ml QSHIFT@10,22 IV 10/31/24 22:00 11/07/24 08:27 10 ML Pantoprazole Sodium 80 mg BID IV 10/31/24 22:00 11/07/24 08:27 80 MG Ibuprofen 600 mg Q6HP PRN PO 11/01/24 23:15 11/07/24 15:44 600 MG Micafungin Sodium 100 mg/Sodium Chloride 100 ml @ 100 mls/hr DAILY IV 11/02/24 10:00 11/07/24 08:27 100 MLS/HR Enoxaparin Sodium 30 mg DAILY SC 11/03/24 10:00 11/07/24 08:28 30 MG Meropenem 50 ml @ 17 mls/hr Q12HR IV 11/03/24 22:00 11/07/24 08:27 17 MLS/HR Metoprolol Tartrate 25 mg BID PO 11/06/24 10:00 11/06/24 13:03 25 MG Acetaminophen/ Hydrocodone Bitart 1 tab Q4HPRN PRN PO 11/06/24 09:15 Metoclopramide HCl 5 mg Q8HR GT 11/06/24 14:00 11/06/24 14:00 5 MG Enteral Nutritional Formula 1,000 ml 50ML/HR GT 11/06/24 09:30 laboratory and microbiology Laboratory Tests 11/07/24 03:08 Test 11/07/24 03:08 Range/Units Serum Glucose 111 H 74-106 mg/dL Assessment/Plan Impression Acute hypoxemic respiratory failure S/p tracheostomy Perforated viscus Septic shock Smoker Patient seen and examined in ICU Events WBC up CTA reviewed Oral contrast is noted within the stomach and small bowel loops no contrast passing into the large bowel which is most likely from timing of imaging. Mild gastric wall thickening . Correlate for mild gastritis. Mild urinary bladder wall thickening which may be from inadequate distension. Correlation with urinalysis is recommended to exclude cystitis. Small left with small to moderate right-sided pleural effusions and associated atelectasis. Additional findings as above. Labs and imaging reviewed ABG reviewed Management Vent support as needed Titrate to maintain sats 90% or above Trache collar follow up with gen sx Continue antibiotics and antifungals F/u cultures Bronchodilators Monitor renal function Monitor electrolytes Supplement as needed HD per nephrology Nutritional support Tube feedings DVT prophylaxis Critical care time 35 minutes Dietary Evaluation Review Comments: 1. Continue TPN to meet at least 75% estimated needs 2. Continue current POC Expected Outcomes/Goals: FU 2-3 days to meet adequate energy & protein within 7 days of NPO Protein Calorie Malnutrition: Severe (rn) Plan discussed with: Patient CC Plasma Assessment Blood Product Administration S: [id number] VALENTE DEE MD Nov 07, 2024 16:31
--- NOTE | 2024-11-07 21:21 | DVHPN2 ---
Progress Note - Dictate Date Seen: Nov 07, 2024 Medical Necessity Reason Pt with a Central, PICC or Fol: No The following are medically ne: Central Line, Gómez Catheter Reason for gómez catheter: Strict I&O Subjective Mr. Perez is a 48 years old right-handed gentleman with a history of hypertension, dyslipidemia, multiple strokes, he was brought to the [facility] on 10/04/2024 with a chief company of recurrent syncope, in the hospital, the patient was found to have perforated viscus, and he went through surgical treatment, he was hospital course has been complicated with sepsis, septic shock, pneumonia, right upper extremity DVT. With appropriate treatment, the patient has improved, but he does not mentally recover as anticipated. I saw him on 08/23/2023 for TIA I have seen and examined the patient, discussed with his nurse, he is awake, eyes are wide open, and watching TV, he follows verbal commands, he moves the left leg, the muscle power is no less than 4/5 he only moves the left upper extremity minimally T-max: 101.3 Blood culture, Urinalysis, 08/22/2023: Unremarkable UDS, 08/22/2023: Negative WBC/Hb/PLT'/MCV, 08/22/2023: 10.8/13.1/184/87.4, 10/28/2024: 15/8/487/89.3 10/31/2024: 24.3/9.1/77/88.4 Troponin 1 high-sensitivity, 08/22/2023: 336, 273/300 BUNs/CR, 08/22/2023: 15/1.45 10/31/2024: Two 9/2.42 GFR, 08/22/2023: 59 Liver function test, 10/04/2024: Unremarkable TBI/AST/ALT/AP, 10/04/2024: 0.6/410/335/31, 10/05/2024: 1.3/582/423/39, 10/31/2024: 3.6/54/98/117 TG/CHO L/LDL/HDL, 08/2023: 136/166/111/39 TSH, 08/23/2023: 4.25 DONAL, 08/23/2023: 1. No evidence of intracardiac source of embolus in the study conducted today. 2. Normal valves without significant masses or change vegetations were discernible. 3. No evidence of intra-atrial shunting by bubble study and color Doppler. 4. Mild atherosclerotic plaquing was visualized in the arch of the aorta without evidence of dissection in the visualized part CT head, 10/24/2024: 1. No intracranial hemorrhage or mass effect. 2. [id number] chronic microvascular ischemic changes. 3. Old bilateral basal ganglia lacunar infarcts. 4. Small bilateral mastoid effusions. CT abdomen/pelvis, 10/04/2024: 1. Extensive intra-abdominal free air concerning for perforated viscus. Surgical consultation is recommended. 2. Enteritis is seen in multiple loops of small bowel in the left hemiabdomen. 3. Moderate abdominopelvic ascites. 4. Small right pleural effusion. CTA neck, head, 08/22/2023:1. CTA head demonstrates no evidence of large vessel occlusion, aneurysm, or significant stenosis. 2. CTA neck demonstrates no evidence of carotid or vertebral dissection or significant stenosis. 3. No noncontrast CT head was performed. 4. Additional findings as detailed above MRI head, 08/23/2023: No acute infarct, intracranial hemorrhage, mass effect, or hydrocephalus. Moderate periventricular and deep subcortical white matter T2 hyperintensities which are nonspecific, but most likely related to sequela of chronic microvascular ischemic changes (I have reviewed the MRI films with our in-house radiologist, Dr. Black, the patient has bilateral multiple subacute/chronic infarcts) MRI head, 11/01/2024: No acute cerebrovascular ischemia. [id number] chronic microvascular ischemic changes. Bilateral mastoid effusions. Old bilateral basal ganglia / lopes radiata infarcts. vital signs Vital Sign Date Time Temp Pulse Resp B/P (MAP) Pulse Ox O2 Delivery O2 Flow Rate FiO2 11/07/24 18:30 110 29 149/86 (107) 97 11/07/24 18:20 Trach Collar 8 30 30 11/07/24 18:15 99.1 99.1 Total Intake and Output 11/06/24 11/06/24 11/07/24 15:00 23:00 07:00 Intake Total 946 ml 1450 ml 637 ml Output Total 776 ml 357 ml Balance 946 ml 674 ml 280 ml medications Current Medications Medications Dose Ordered Sig/Wally Route Start Time Stop Time Status Last Admin Dose Admin Ondansetron HCl 4 mg Q4HP PRN IV 10/04/24 11:45 Morphine Sulfate 2 mg Q4HPRN PRN IV 10/04/24 11:45 Cancel Nitroglycerin 0.4 mg Q5MINP PRN SL 10/04/24 11:45 Morphine Sulfate 2 mg Q30M PRN IV 10/04/24 11:45 Cancel Lorazepam 50 mg/ Sodium Chloride 50 ml @ 1 mls/hr Q24H IV 10/04/24 18:15 Cancel Amino Acids 0 ml @ 0 mls/hr PER PHARMACY IV 10/05/24 14:30 UNV Diagnostic Test (Pha) 1 strip Q6HR 10/05/24 18:00 11/07/24 17:59 1 STRIP Insulin Human Regular FOLLOW SLIDING SCALE Q6HR SC 10/05/24 18:00 11/03/24 17:23 2 UNITS Dextrose 50 ml UD IV 10/05/24 14:45 Meropenem 50 ml @ 17 mls/hr Q12HR IV 10/07/24 10:00 UNV Labetalol HCl 10 mg Q2HPRN PRN IV 10/08/24 09:30 11/06/24 15:22 10 MG Levalbuterol HCl 0.625 mg Q6HR NEB 10/13/24 12:00 11/07/24 18:20 0.625 MG Ipratropium [place] 0.5 mg Q6HR NEB 10/13/24 12:00 11/07/24 18:20 0.5 MG Norepinephrine Bitartrate 32 mg/ Sodium Chloride 250 ml @ 0.938 mls/ hr Q24H IV 10/14/24 10:15 Hold 10/30/24 21:15 0.938 MLS/HR Morphine Sulfate 2 mg Q4HPRN PRN IV 10/21/24 11:30 11/03/24 13:31 2 MG Nicardipine/ Sodium Chloride 200 ml @ 50 mls/hr Q4H IV 10/22/24 08:45 10/30/24 15:34 75 MLS/HR Acetaminophen 650 mg Q6HP PRN GT 10/22/24 09:00 11/06/24 15:06 650 MG Metoprolol Tartrate 1.25 mg Q6HPRN PRN IV 10/27/24 09:45 10/31/24 12:17 1.25 MG Sucralfate 1 gm BID@0600,2200 GT 10/28/24 22:00 11/07/24 06:22 1 GM Pantoprazole Sodium 50 ml @ 0 mls/hr Q0M IV 10/28/24 16:15 Cancel Midazolam HCl 1 mg Q2HP PRN IV 10/30/24 16:45 11/03/24 15:29 1 MG Epoetin Roger-epbx 10,000 unit MWF@2100 SC 10/31/24 21:00 11/05/24 20:30 10,000 UNIT Acetaminophen [address] 10/31/24 13:30 11/06/24 05:26 650 MG Sodium Chloride 10 ml QSHIFT@10,22 IV 10/31/24 22:00 11/07/24 08:27 10 ML Pantoprazole Sodium 80 mg BID IV 10/31/24 22:00 11/07/24 08:27 80 MG Ibuprofen 600 mg Q6HP PRN PO 11/01/24 23:15 11/07/24 15:44 600 MG Micafungin Sodium 100 mg/Sodium Chloride 100 ml @ 100 mls/hr DAILY IV 11/02/24 10:00 11/07/24 08:27 100 MLS/HR Enoxaparin Sodium 30 mg DAILY SC 11/03/24 10:00 11/07/24 08:28 30 MG Meropenem 50 ml @ 17 mls/hr Q12HR IV 11/03/24 22:00 11/07/24 08:27 17 MLS/HR Metoprolol Tartrate 25 mg BID PO 11/06/24 10:00 11/06/24 13:03 25 MG Acetaminophen/ Hydrocodone Bitart 1 tab Q4HPRN PRN PO 11/06/24 09:15 Metoclopramide HCl 5 mg Q8HR GT 11/06/24 14:00 11/06/24 14:00 5 MG Enteral Nutritional Formula 1,000 ml 50ML/HR GT 11/06/24 09:30 objective General: the patient is well developed and nourished. No acute distress. MENTAL STATUS: Subjective SPEECH, LANGUAGE, HIGHER CORTICAL FUNCTION: He does not vocalize/status post tracheostomy. CRANIAL NERVES:Intact visual ansari to confrontation (visual thread). Pupils are equal, round and reactive. EOMs full and conjugate. Mandibular strength intact. Facial muscles symmetrical and strength intact. SENSATION: Sensation to touch and pinprick is unremarkable MOTOR: Normal muscle bulk. No fasciculations. No abnormal movements or posturing. He moves right leg in the left arm REFLEXES: Deep tendon reflexes are increased bilaterally, clonus in both knees . No pathological reflexes. CEREBELLAR/COORDINATION: Deferred GAIT/STATION: deferred laboratory and microbiology Laboratory Tests 11/07/24 03:08 Test 11/07/24 03:08 Range/Units Serum Glucose 111 H 74-106 mg/dL Problem List Altered mental status Metabolic encephalopathy secondary to sepsis, septic shock, pneumonia Hypoxic encephalopathy Viscus perforation status post surgical repair GI bleeding Anemia Fever/ Sepsis/septic shock Respiratory failure S/P tracheostomy Multiple strokes Secondary to history methamphetamine, cocaine, alcohol use History of alcohol abuse History of cocaine, methamphetamine abuse Hyperreflexia secondary to multiple strokes Assessment/Plan Monitoring Supportive treatment ICU care Stabilize vitals Respiratory support/vent management Blood culture Follow-up labs IV antibiotics Resume Aspirin 81 mg daily later TPN Quit tobacco smoking No more alcohol, street drug abuse Stroke risk factors discussed More recommended per clinical course This medical document was created using an electronic medical record system with [employer] dictation system. Although this document has been carefully reviewed, there may still be some phonetic and typographical errors. These areas are purely typographical due to imperfections of the software programs, and do not reflect any compromise in the patient's medical care. Prognosis poor Dietary Evaluation Review Comments: 1. Continue TPN to meet at least 75% estimated needs 2. Continue current POC Expected Outcomes/Goals: FU 2-3 days to meet adequate energy & protein within 7 days of NPO Protein Calorie Malnutrition: Severe (rn) Plan discussed with: Other CC Plasma Assessment Blood Product Administration S: [id number] LEANDRO BLACK MD Nov 07, 2024 21:21
[2024-11-08] VITALS (68 sets, daily range): BP systolic 88–161; BP diastolic 61–107; PULSE 75–136; RESP 16–44; TEMP 97.9–100.8; O2SAT 90–100
[2024-11-08 02:53] LABS: Hemoglobin 8.2 g/dL (13.5-17.5); Nucleated Red Blood Cells % 0.0 %
[2024-11-08 02:56] LABS: Hematocrit 25.0 % (41.0-53.0); Mean Corpuscular Hemoglobin 28.7 pg (28.0-32.0); Mean Corpuscular Volume 87.8 fL (80.0-100.0)
[2024-11-08 03:02] LABS: Chloride 105 mmol/L (98-107); Potassium 3.6 mmol/L (3.5-5.1); Sodium 139 mmol/L (136-145)
[2024-11-08 03:03] LABS: Anion Gap 15 (5-15)
[2024-11-08 03:08] LABS: BUN/Creatinine Ratio 18.4 (10.0-20.0); Glucose 95 mg/dL (74-106)
[2024-11-08 03:15] LABS: Blood Urea Nitrogen 67 mg/dL (9-23); Calcium 8.4 mg/dL (8.7-10.4); Carbon Dioxide 19 mmol/L (20-31)
--- NOTE | 2024-11-08 08:49 | DVHPN2 ---
Subjective Patient continues to be encephalopathic. Following some commands Reviewed: Care Plan, H&P, Labs, Medications, Previous Orders, Radiology, Other (Consultants) Changes from previous H/P or p: No Changes General: Per HPI Objective Vitals Vital Signs Date Time Temp Pulse Resp B/P (MAP) Pulse Ox O2 Delivery O2 Flow Rate FiO2 11/08/24 07:53 106 136/79 11/08/24 07:41 27 96 Trach Collar 8 30 30 11/08/24 07:30 99.1 99.1 Intake/Output Intake and Output 11/08/24 07:00 Intake Total 1518 ml Output Total 1311 ml Balance 207 ml Intake Oral 1000 ml IV Total 200 ml Tube Feeding 318 ml Output Urine Total 1025 ml Stool Total 1 ml Drainage Total 285 ml General Appearance: Alert, Oriented X3, Cooperative, mild distress, Other (Intubated and sedated) HEENT: Atraumatic, PERRLA Lungs: Clear to auscultation, Normal air movement, Other (Mechanical ventilation. Decreased breath sounds at bases) Cardiovascular: Normal S1, Normal S2, Other (Sinus tachycardia) Abdomen: Other (NG with bilious drainage now) Extremities: Normal pulses Neuro: Other (Unable to assess) Skin: Dry, Intact, Wounds (Abdominal wound dry and intact), Other Psych/Mental Status: Other Medications Current Medications Medications Dose Ordered Sig/Wally Route Start Time Stop Time Status Last Admin Dose Admin Ondansetron HCl 4 mg Q4HP PRN IV 10/04/24 11:45 Morphine Sulfate 2 mg Q4HPRN PRN IV 10/04/24 11:45 Cancel Nitroglycerin 0.4 mg Q5MINP PRN SL 10/04/24 11:45 Morphine Sulfate 2 mg Q30M PRN IV 10/04/24 11:45 Cancel Lorazepam 50 mg/ Sodium Chloride 50 ml @ 1 mls/hr Q24H IV 10/04/24 18:15 Cancel Amino Acids 0 ml @ 0 mls/hr PER PHARMACY IV 10/05/24 14:30 UNV Diagnostic Test (Pha) 1 strip Q6HR 10/05/24 18:00 11/08/24 06:17 1 STRIP Insulin Human Regular FOLLOW SLIDING SCALE Q6HR SC 10/05/24 18:00 11/03/24 17:23 2 UNITS Dextrose 50 ml UD IV 10/05/24 14:45 Meropenem 50 ml @ 17 mls/hr Q12HR IV 10/07/24 10:00 UNV Labetalol HCl 10 mg Q2HPRN PRN IV 10/08/24 09:30 11/06/24 15:22 10 MG Levalbuterol HCl 0.625 mg Q6HR NEB 10/13/24 12:00 11/08/24 06:05 0.625 MG Ipratropium [place] 0.5 mg Q6HR NEB 10/13/24 12:00 11/08/24 06:05 0.5 MG Norepinephrine Bitartrate 32 mg/ Sodium Chloride 250 ml @ 0.938 mls/ hr Q24H IV 10/14/24 10:15 Hold 10/30/24 21:15 0.938 MLS/HR Morphine Sulfate 2 mg Q4HPRN PRN IV 10/21/24 11:30 11/03/24 13:31 2 MG Nicardipine/ Sodium Chloride 200 ml @ 50 mls/hr Q4H IV 10/22/24 08:45 10/30/24 15:34 75 MLS/HR Acetaminophen 650 mg Q6HP PRN GT 10/22/24 09:00 11/06/24 15:06 650 MG Metoprolol Tartrate 1.25 mg Q6HPRN PRN IV 10/27/24 09:45 10/31/24 12:17 1.25 MG Sucralfate 1 gm BID@0600,2200 GT 10/28/24 22:00 11/08/24 06:18 1 GM Pantoprazole Sodium 50 ml @ 0 mls/hr Q0M IV 10/28/24 16:15 Cancel Midazolam HCl 1 mg Q2HP PRN IV 10/30/24 16:45 11/03/24 15:29 1 MG Epoetin Roger-epbx 10,000 unit MWF@2100 SC 10/31/24 21:00 11/05/24 20:30 10,000 UNIT Acetaminophen 650 mg Q6HP PRN [place] 10/31/24 13:30 11/06/24 05:26 650 MG Sodium Chloride 10 ml QSHIFT@, IV 10/31/24 22:00 11/08/24 07:53 10 ML Pantoprazole Sodium 80 mg BID IV 10/31/24 22:00 11/08/24 07:52 80 MG Ibuprofen 600 mg Q6HP PRN PO 11/01/24 23:15 11/07/24 15:44 600 MG Micafungin Sodium 100 mg/Sodium Chloride 100 ml @ 100 mls/hr DAILY IV 11/02/24 10:00 11/08/24 07:52 100 MLS/HR Enoxaparin Sodium 30 mg DAILY SC 11/03/24 10:00 11/08/24 07:53 30 MG Meropenem 50 ml @ 17 mls/hr Q12HR IV 11/03/24 22:00 11/07/24 22:25 17 MLS/HR Metoprolol Tartrate 25 mg BID PO 11/06/24 10:00 11/08/24 07:53 25 MG Acetaminophen/ Hydrocodone Bitart 1 tab Q4HPRN PRN PO 11/06/24 09:15 Metoclopramide HCl 5 mg Q8HR GT 11/06/24 14:00 11/08/24 06:18 5 MG Enteral Nutritional Formula 1,000 ml 50ML/HR GT 11/06/24 09:30 Laboratory Results Laboratory Tests 11/08/24 02:24 Chemistry Test 11/08/24 02:24 Calcium Level 8.4 mg/dL (8.7-10.4) L Coagulation Test 11/07/24 09:52 Prothrombin Time 12.3 sec (9.3-11.8) H Prothrombin Time INR 1.18 (0.9-1.15) H Activated Partial Thromboplast Time 32.6 SEC (24.5-34.5) Urinalysis Test 10/05/24 15:05 10/26/24 20:33 11/07/24 12:40 Urine Mucus Few (None Seen) Urine Color Light-yellow (Yellow) Urine Clarity Clear (Clear) Urine pH 7.0 (5.0-9.0) Urine Specific [place] 1.014 (1.001-1.035) Urine Protein 1+ (Negative) H Urine Ketones Negative (Negative) Urine Blood 1+ /uL (Negative) H Urine Nitrite Negative (Negative) Urine Bilirubin Negative (Negative) Urine Urobilinogen Normal mg/dL (Negative) Urine Leukocyte Esterase Negative /uL (Negative) Urine RBC 1 /hpf (0 - 3) Urine Microscopic WBC 3 /HPF (0-3) Urine Squamous Epithelial Cells None seen /hpf (<5) Urine Bacteria Few /hpf (None Seen) H Urine Glucose Normal mg/dL (Normal) Urine Creatinine 64.63 mg/dL (30.0-125.0) Urine Protein/Creatinine Ratio 3.11 Urine Sodium 34 mmol/L (40-220) L Urine Total Protein 200.7 mg/dL (1-14) H Microbiology Microbiology Date/Time Source Procedure Growth Status 11/04/24 15:20 Blood Blood Culture - Preliminary NO GROWTH AFTER 72 HOURS OF INCUBATION. Resulted 10/31/24 21:00 Voided Urine Urine Culture - Final Complete 10/18/24 09:21 Pleural Fluid Gram Stain - Final Complete 10/18/24 09:21 Pleural Fluid Body Fluid Culture - Final Complete 10/16/24 12:05 Bronchial Washings Gram Stain - Final Complete 10/16/24 12:05 Bronchial Washings Respiratory Culture - Final Complete 10/04/24 17:10 Nose MRSA Screen - Final Complete Labs and/or images reviewed: Labs reviewed by me, Image(s) reviewed by me Assessment/Plan Assessment/Plan Impression: -severe septic shock -pneumoperitoneum secondary to perforated gastric ulcer -acute kidney injury, hemodynamically mediated, probable VMN -acute hypoxic respiratory failure -shock liver -nicotine dependence -history of CVA -right upper extremity DVT -multifocal pneumonia, probable Gram-positive/Gram-negative etiology -anemia secondary to nutrition, renal failure -bilateral pleural effusions -small left pneumothorax -Failure of ventilator weaning, status post tracheostomy -fungemia Plan: Events: No events overnight. CT scan of abdomen and pelvis performed. No abdominal issues identified. Noted right pleural effusion. Surgical consultation placed for assessment of cholecystectomy. Continues to be off of renal replacement therapy. Improvement with renal function. -GI consultation: Discussed case. -increase tube feeding to 50 mL/hour as tolerated -increase metoprolol tartrate to 25 mg p.o. b.i.d. -antibiotic therapy: Zosyn, Zyvox, micafungin -nephrology consultation: Daily assessment for hemodialysis -repeat labs, chest x-ray, ABG in a.m. Critical care time spent with patient discussing and formulating plan of care: 40 minutes. This does not include time spent performing procedures. This medical document was created using an electronic medical record system with Dragon computerized dictation system. Although this document has been carefully reviewed, there may still be some phonetic and typographical errors. These areas are purely typographical due to imperfections of the software programs, and do not reflect any compromise in the patient's medical care. Plan discussed with: Patient, Other (RN) My Orders Orders - CHEYENNE PIKE NP Procedure Category Date Status Time * Surgical Consult CONS 11/07/24 Transmitted Blood Culture HOLA 11/07/24 In Process 09:16 Date of Service: Nov 08, 2024 Billing Provider: CHEYENNE PIKE NP Common Visit Codes: [id number] CARE 30-74 MIN CHEYENNE PIKE NP Nov 08, 2024 08:49
--- NOTE | 2024-11-08 09:42 | DVHPN2 ---
Progress Note Date Seen: Nov 08, 2024 Medical Necessity Reason Pt with a Central, PICC or Fol: No The following are medically ne: Central Line, Gómez Catheter Reason for gómez catheter: Strict I&O Subjective Review of Systems: RESPIRATORY:Abnormal Other Systems: Patient seen and examined by myself today in follow-up, patient remained intubated on ventilator Objective vital signs Vital Sign Date Time Temp Pulse Resp B/P (MAP) Pulse Ox O2 Delivery O2 Flow Rate FiO2 11/08/24 09:30 84 44 145/84 (104) 100 11/08/24 07:41 Trach Collar 8 30 30 11/08/24 07:30 99.1 99.1 Total Intake and Output 11/07/24 11/07/24 11/08/24 15:00 23:00 07:00 Intake Total 150 ml 800 ml 568 ml Output Total 561 ml 750 ml Balance 150 ml 239 ml -182 ml medications Current Medications Medications Dose Ordered Sig/Wally Route Start Time Stop Time Status Last Admin Dose Admin Ondansetron HCl 4 mg Q4HP PRN IV 10/04/24 11:45 Morphine Sulfate 2 mg Q4HPRN PRN IV 10/04/24 11:45 Cancel Nitroglycerin 0.4 mg Q5MINP PRN SL 10/04/24 11:45 Morphine Sulfate 2 mg Q30M PRN IV 10/04/24 11:45 Cancel Lorazepam 50 mg/ Sodium Chloride 50 ml @ 1 mls/hr Q24H IV 10/04/24 18:15 Cancel Amino Acids 0 ml @ 0 mls/hr PER PHARMACY IV 10/05/24 14:30 UNV Diagnostic Test (Pha) 1 strip Q6HR 10/05/24 18:00 11/08/24 06:17 1 STRIP Insulin Human Regular FOLLOW SLIDING SCALE Q6HR SC 10/05/24 18:00 11/03/24 17:23 2 UNITS Dextrose 50 ml UD IV 10/05/24 14:45 Meropenem 50 ml @ 17 mls/hr Q12HR IV 10/07/24 10:00 UNV Labetalol HCl 10 mg Q2HPRN PRN IV 10/08/24 09:30 11/06/24 15:22 10 MG Levalbuterol HCl 0.625 mg Q6HR NEB 10/13/24 12:00 11/08/24 06:05 0.625 MG Ipratropium [place] 0.5 mg Q6HR NEB 10/13/24 12:00 11/08/24 06:05 0.5 MG Norepinephrine Bitartrate 32 mg/ Sodium Chloride 250 ml @ 0.938 mls/ hr Q24H IV 10/14/24 10:15 Hold 10/30/24 21:15 0.938 MLS/HR Morphine Sulfate 2 mg Q4HPRN PRN IV 10/21/24 11:30 11/03/24 13:31 2 MG Nicardipine/ Sodium Chloride 200 ml @ 50 mls/hr Q4H IV 10/22/24 08:45 10/30/24 15:34 75 MLS/HR Acetaminophen 650 mg Q6HP PRN GT 10/22/24 09:00 11/06/24 15:06 650 MG Metoprolol Tartrate 1.25 mg Q6HPRN PRN IV 10/27/24 09:45 10/31/24 12:17 1.25 MG Sucralfate 1 gm BID@0600,2200 GT 10/28/24 22:00 11/08/24 06:18 1 GM Pantoprazole Sodium 50 ml @ 0 mls/hr Q0M IV 10/28/24 16:15 Cancel Midazolam HCl 1 mg Q2HP PRN IV 10/30/24 16:45 11/03/24 15:29 1 MG Epoetin Roger-epbx 10,000 unit MWF@2100 SC 10/31/24 21:00 11/05/24 20:30 10,000 UNIT Acetaminophen 650 mg Q6HP PRN [place] 10/31/24 13:30 11/06/24 05:26 650 MG Sodium Chloride 10 ml QSHIFT@10,22 IV 10/31/24 22:00 11/08/24 07:53 10 ML Pantoprazole Sodium 80 mg BID IV 10/31/24 22:00 11/08/24 07:52 80 MG Ibuprofen 600 mg Q6HP PRN PO 11/01/24 23:15 11/07/24 15:44 600 MG Micafungin Sodium 100 mg/Sodium Chloride 100 ml @ 100 mls/hr DAILY IV 11/02/24 10:00 11/08/24 07:52 100 MLS/HR Enoxaparin Sodium 30 mg DAILY SC 11/03/24 10:00 11/08/24 07:53 30 MG Meropenem 50 ml @ 17 mls/hr Q12HR IV 11/03/24 22:00 11/07/24 22:25 17 MLS/HR Metoprolol Tartrate 25 mg BID PO 11/06/24 10:00 11/08/24 07:53 25 MG Acetaminophen/ Hydrocodone Bitart 1 tab Q4HPRN PRN PO 11/06/24 09:15 Metoclopramide HCl 5 mg Q8HR GT 11/06/24 14:00 11/08/24 06:18 5 MG Enteral Nutritional Formula 1,000 ml 50ML/HR GT 11/06/24 09:30 Examination: LUNGS:Normal, CVS:Normal, MSK:Normal laboratory and microbiology Laboratory Tests 11/08/24 02:24 Test 11/08/24 02:24 Range/Units Serum Glucose 95 74-106 mg/dL Microbiology Date/Time Source Procedure Growth Status 11/04/24 15:20 Blood Blood Culture - Preliminary NO GROWTH AFTER 72 HOURS OF INCUBATION. Resulted 10/31/24 21:00 Voided Urine Urine Culture - Final Complete 10/18/24 09:21 Pleural Fluid Gram Stain - Final Complete 10/18/24 09:21 Pleural Fluid Body Fluid Culture - Final Complete 10/16/24 12:05 Bronchial Washings Gram Stain - Final Complete 10/16/24 12:05 Bronchial Washings Respiratory Culture - Final Complete 10/04/24 17:10 Nose MRSA Screen - Final Complete Problem List/Assessment/Plan Problem List/Assessment/Plan Assessment/Plan Acute kidney injury likely ATN, FeNa ,> 2% requiring intermittent hemodialysis Acute respiratory failure, patient intubated on ventilator Hemodynamic shock acute blood loss anemia Perforated gastric ulcer status post surgery 10/04 Hyponatremia likely due to volume overload Pneumonia Sepsis Hypomagnesemia Hypokalemia Hypertensive urgency Empyema status post right chest tube Acute blood loss anemia status post PRBC Recommendations Kidney function slowly improving off hemodialysis Increased urine output Hyponatremia appropriately resolved Gómez catheter Strict I&Os DC vancomycin DC ibuprofen ID consult KCL replacement We will continue to follow Plan discussed with: Other (Nurse) Dietary Evaluation Review Comments: 1. Continue TPN to meet at least 75% estimated needs 2. Continue current POC Expected Outcomes/Goals: FU 2-3 days to meet adequate energy & protein within 7 days of NPO Protein Calorie Malnutrition: Severe (rn) CC Plasma Assessment Blood Product Administration S: [id number] MILADY ANDERSON MD Nov 08, 2024 09:42
--- NOTE | 2024-11-08 11:22 | DVHPN2 ---
Progress Note Date Seen: Nov 08, 2024 Medical Necessity Reason Pt with a Central, PICC or Fol: No The following are medically ne: Central Line, Gómez Catheter Reason for gómez catheter: Strict I&O Objective vital signs Vital Sign Date Time Temp Pulse Resp B/P (MAP) Pulse Ox O2 Delivery O2 Flow Rate FiO2 11/08/24 10:20 113 11/08/24 10:10 30 11/08/24 10:09 28 100 Trach Collar 8 11/08/24 10:00 144/94 (111) 11/08/24 07:30 99.1 99.1 Total Intake and Output 11/07/24 11/07/24 11/08/24 15:00 23:00 07:00 Intake Total 150 ml 800 ml 568 ml Output Total 561 ml 750 ml Balance 150 ml 239 ml -182 ml medications Current Medications Medications Dose Ordered Sig/Wally Route Start Time Stop Time Status Last Admin Dose Admin Ondansetron HCl 4 mg Q4HP PRN IV 10/04/24 11:45 Morphine Sulfate 2 mg Q4HPRN PRN IV 10/04/24 11:45 Cancel Nitroglycerin 0.4 mg Q5MINP PRN SL 10/04/24 11:45 Morphine Sulfate 2 mg Q30M PRN IV 10/04/24 11:45 Cancel Lorazepam 50 mg/ Sodium Chloride 50 ml @ 1 mls/hr Q24H IV 10/04/24 18:15 Cancel Amino Acids 0 ml @ 0 mls/hr PER PHARMACY IV 10/05/24 14:30 UNV Diagnostic Test (Pha) 1 strip Q6HR 10/05/24 18:00 11/08/24 06:17 1 STRIP Insulin Human Regular FOLLOW SLIDING SCALE Q6HR SC 10/05/24 18:00 11/03/24 17:23 2 UNITS Dextrose 50 ml UD IV 10/05/24 14:45 Meropenem 50 ml @ 17 mls/hr Q12HR IV 10/07/24 10:00 UNV Labetalol HCl 10 mg Q2HPRN PRN IV 10/08/24 09:30 11/06/24 15:22 10 MG Levalbuterol HCl 0.625 mg Q6HR NEB 10/13/24 12:00 11/08/24 06:05 0.625 MG Ipratropium [place] 0.5 mg Q6HR NEB 10/13/24 12:00 11/08/24 06:05 0.5 MG Norepinephrine Bitartrate 32 mg/ Sodium Chloride 250 ml @ 0.938 mls/ hr Q24H IV 10/14/24 10:15 Hold 10/30/24 21:15 0.938 MLS/HR Morphine Sulfate 2 mg Q4HPRN PRN IV 10/21/24 11:30 11/03/24 13:31 2 MG Nicardipine/ Sodium Chloride 200 ml @ 50 mls/hr Q4H IV 10/22/24 08:45 10/30/24 15:34 75 MLS/HR Acetaminophen 650 mg Q6HP PRN GT 10/22/24 09:00 11/06/24 15:06 650 MG Metoprolol Tartrate 1.25 mg Q6HPRN PRN IV 10/27/24 09:45 10/31/24 12:17 1.25 MG Sucralfate 1 gm BID@0600,2200 GT 10/28/24 22:00 11/08/24 06:18 1 GM Pantoprazole Sodium 50 ml @ 0 mls/hr Q0M IV 10/28/24 16:15 Cancel Midazolam HCl 1 mg Q2HP PRN IV 10/30/24 16:45 11/03/24 15:29 1 MG Epoetin Roger-epbx 10,000 unit MWF@2100 SC 10/31/24 21:00 11/05/24 20:30 10,000 UNIT Acetaminophen 650 mg Q6HP PRN DC 10/31/24 13:30 11/06/24 05:26 650 MG Sodium Chloride 10 ml QSHIFT@10,22 IV 10/31/24 22:00 11/08/24 07:53 10 ML Pantoprazole Sodium 80 mg BID IV 10/31/24 22:00 11/08/24 07:52 80 MG Micafungin Sodium 100 mg/Sodium Chloride 100 ml @ 100 mls/hr DAILY IV 11/02/24 10:00 11/08/24 07:52 100 MLS/HR Enoxaparin Sodium 30 mg DAILY SC 11/03/24 10:00 11/08/24 07:53 30 MG Meropenem 50 ml @ 17 mls/hr Q12HR IV 11/03/24 22:00 11/08/24 10:12 17 MLS/HR Metoprolol Tartrate 25 mg BID PO 11/06/24 10:00 11/08/24 07:53 25 MG Acetaminophen/ Hydrocodone Bitart 1 tab Q4HPRN PRN PO 11/06/24 09:15 Metoclopramide HCl 5 mg Q8HR GT 11/06/24 14:00 11/08/24 06:18 5 MG Enteral Nutritional Formula 1,000 ml 50ML/HR GT 11/06/24 09:30 laboratory and microbiology Laboratory Tests 11/08/24 02:24 Test 11/08/24 02:24 Range/Units Serum Glucose 95 74-106 mg/dL Problem List/Assessment/Plan Problem List/Assessment/Plan 10/10/24 patient had exploratory operation with closure of perforated peptic ulceration about 5 days ago, now concern about possible cholecystitis. GB sludge,GB wall thickened and surounding edema,.LFT's elevated. [patient has history of heavy alcohol use(spouse report). LFTs elevation could be due to liver Ds but cholecystostomy is a reasonable next step, will follow with you 10/14/24 patient appears "surgically stable", will get gastrografin UGI prior to resuming gastric feedings 10/16/24 GASTROGRAFGIN UGI POSSIBLY WITH PERSISTENT LEAK FROM REPAIRED PYLORIC PERFORATION, I HAVE ORDERED A CT SCAN FOR CONFIRMATION 10/24/24 clinically unchanged,being weaned off ventilator, abdomen non distended, tolerating tube feedings, having BM's, KWAN drains with minimal clear drainage, drains removed. 10/26/24 large gastric residual volumes, suspect gastroparesis, vent settings acceptable for tracheostomy, planned for tomorrow 10/27/24 post tracheostomy CXR shows tracheostomy in good locaTION ABOVE THE EVELIA, NO EVIDENCE OF PNEUMOTHORAX OR MEDIASTINAL; WIDENING. i HAVE CALLED PATIENT'S 10/28/24 tracheostomy OK,cxr OK,will sign off, please recall if needed 11/07/24 I am requested to perform a cholecystectomy due to suspicion of persistent GB infection and persistent sepsis. The las CT scan of abdomen and pelvis did not show presence of stones in the GB or evidence of cholecystitis. patient's abdomen is non tender, there is a cholecystostomy in place with scant drainage. I will get a CT scan to r/o other etiology of abdominal infection. 11/08/24 CT REVIEWED, ABDOMEN NON TENDER, i DOP NOT THINK HIS GALLBLADDER IS THE SOURCE OF HIS SEPSIS, OPERATION CAN BE TIMED AFTER OVERALL IMPROVEMENT Plan discussed with: Patient, Other Dietary Evaluation Review Comments: 1. Continue TPN to meet at least 75% estimated needs 2. Continue current POC Expected Outcomes/Goals: FU 2-3 days to meet adequate energy & protein within 7 days of NPO Protein Calorie Malnutrition: Severe (rn) LOBO BOSWELL MD Nov 08, 2024 11:22
[2024-11-08] MEDS: SODIUM CHLORIDE 0.9% 1,000 ML IV SCH (12:00)
--- NOTE | 2024-11-08 13:52 | DVHPN2 ---
Progress Note - Dictate Date Seen: Nov 08, 2024 Medical Necessity Reason Pt with a Central, PICC or Fol: No The following are medically ne: Central Line, Gómez Catheter Reason for gómez catheter: Strict I&O vital signs Vital Sign Date Time Temp Pulse Resp B/P (MAP) Pulse Ox O2 Delivery O2 Flow Rate FiO2 11/08/24 13:37 24 96 Trach Collar 8 30 30 11/08/24 13:35 108 11/08/24 13:30 145/85 (105) 11/08/24 12:00 98.2 98.2 Total Intake and Output 11/07/24 11/07/24 11/08/24 15:00 23:00 07:00 Intake Total 150 ml 800 ml 568 ml Output Total 561 ml 750 ml Balance 150 ml 239 ml -182 ml medications Current Medications Medications Dose Ordered Sig/Wally Route Start Time Stop Time Status Last Admin Dose Admin Ondansetron HCl 4 mg Q4HP PRN IV 10/04/24 11:45 Morphine Sulfate 2 mg Q4HPRN PRN IV 10/04/24 11:45 Cancel Nitroglycerin 0.4 mg Q5MINP PRN SL 10/04/24 11:45 Morphine Sulfate 2 mg Q30M PRN IV 10/04/24 11:45 Cancel Lorazepam 50 mg/ Sodium Chloride 50 ml @ 1 mls/hr Q24H IV 10/04/24 18:15 Cancel Amino Acids 0 ml @ 0 mls/hr PER PHARMACY IV 10/05/24 14:30 UNV Diagnostic Test (Pha) 1 strip Q6HR 10/05/24 18:00 11/08/24 11:50 1 STRIP Insulin Human Regular FOLLOW SLIDING SCALE Q6HR SC 10/05/24 18:00 11/03/24 17:23 2 UNITS Dextrose 50 ml UD IV 10/05/24 14:45 Meropenem 50 ml @ 17 mls/hr Q12HR IV 10/07/24 10:00 UNV Labetalol HCl 10 mg Q2HPRN PRN IV 10/08/24 09:30 11/06/24 15:22 10 MG Levalbuterol HCl 0.625 mg Q6HR NEB 10/13/24 12:00 11/08/24 12:18 0.625 MG Ipratropium [place] 0.5 mg Q6HR NEB 10/13/24 12:00 11/08/24 12:18 0.5 MG Norepinephrine Bitartrate 32 mg/ Sodium Chloride 250 ml @ 0.938 mls/ hr Q24H IV 10/14/24 10:15 Hold 10/30/24 21:15 0.938 MLS/HR Morphine Sulfate 2 mg Q4HPRN PRN IV 10/21/24 11:30 11/03/24 13:31 2 MG Nicardipine/ Sodium Chloride 200 ml @ 50 mls/hr Q4H IV 10/22/24 08:45 10/30/24 15:34 75 MLS/HR Acetaminophen 650 mg Q6HP PRN GT 10/22/24 09:00 11/06/24 15:06 650 MG Metoprolol Tartrate 1.25 mg Q6HPRN PRN IV 10/27/24 09:45 10/31/24 12:17 1.25 MG Sucralfate 1 gm BID@0600,2200 GT 10/28/24 22:00 11/08/24 06:18 1 GM Pantoprazole Sodium 50 ml @ 0 mls/hr Q0M IV 10/28/24 16:15 Cancel Midazolam HCl 1 mg Q2HP PRN IV 10/30/24 16:45 11/03/24 15:29 1 MG Epoetin Roger-epbx 10,000 unit MWF@2100 SC 10/31/24 21:00 11/05/24 20:30 10,000 UNIT Acetaminophen 650 mg Q6HP PRN RI 10/31/24 13:30 11/06/24 05:26 650 MG Sodium Chloride 10 ml QSHIFT@10,22 IV 10/31/24 22:00 11/08/24 07:53 10 ML Pantoprazole Sodium 80 mg BID IV 10/31/24 22:00 11/08/24 07:52 80 MG Micafungin Sodium 100 mg/Sodium Chloride 100 ml @ 100 mls/hr DAILY IV 11/02/24 10:00 11/08/24 07:52 100 MLS/HR Enoxaparin Sodium 30 mg DAILY SC 11/03/24 10:00 11/08/24 07:53 30 MG Meropenem 50 ml @ 17 mls/hr Q12HR IV 11/03/24 22:00 11/08/24 10:12 17 MLS/HR Metoprolol Tartrate 25 mg BID PO 11/06/24 10:00 11/08/24 07:53 25 MG Acetaminophen/ Hydrocodone Bitart 1 tab Q4HPRN PRN PO 11/06/24 09:15 Metoclopramide HCl 5 mg Q8HR GT 11/06/24 14:00 11/08/24 12:05 5 MG Enteral Nutritional Formula 1,000 ml 50ML/HR GT 11/06/24 09:30 Sodium Chloride 1,000 ml @ 70 mls/hr [id number] IV 11/08/24 11:30 11/08/24 12:00 70 MLS/HR laboratory and microbiology Laboratory Tests 11/08/24 02:24 Test 11/08/24 02:24 Range/Units Serum Glucose 95 74-106 mg/dL Assessment/Plan Impression Acute hypoxemic respiratory failure S/p tracheostomy Perforated viscus Septic shock Smoker Patient seen and examined in ICU Events S/p tracheostomy Tolerating trache collar No acute events Labs and imaging reviewed ABG reviewed Management Vent support as needed Titrate to maintain sats 90% or above Trache collar follow up with gen sx Continue antibiotics and antifungals F/u cultures Bronchodilators Monitor renal function Monitor electrolytes Supplement as needed HD per nephrology Nutritional support Tube feedings DVT prophylaxis Critical care time 35 minutes Dietary Evaluation Review Comments: 1. Continue TPN to meet at least 75% estimated needs 2. Continue current POC Expected Outcomes/Goals: FU 2-3 days to meet adequate energy & protein within 7 days of NPO Protein Calorie Malnutrition: Severe (rn) Plan discussed with: Other (Rn) CC Plasma Assessment Blood Product Administration S: [id number] VALENTE DEE MD Nov 08, 2024 13:52
[2024-11-08] MEDS: IBUPROFEN 600 MG TAB PO PRN (17:38)
[2024-11-09] VITALS (70 sets, daily range): BP systolic 87–206; BP diastolic 55–101; PULSE 78–118; RESP 10–38; TEMP 97.9–100.2; O2SAT 95–100
[2024-11-09 03:09] LABS: Hematocrit 23.5 % (41.0-53.0); Hemoglobin 7.8 g/dL (13.5-17.5); Mean Corpuscular Hemoglobin 29.2 pg (28.0-32.0); Mean Corpuscular Volume 88.1 fL (80.0-100.0); Nucleated Red Blood Cells % 0.0 %
[2024-11-09 03:18] LABS: Sodium 142 mmol/L (136-145)
[2024-11-09 03:19] LABS: Anion Gap 14 (5-15)
[2024-11-09 03:22] LABS: Calcium 8.1 mg/dL (8.7-10.4); Carbon Dioxide 19 mmol/L (20-31); Chloride 109 mmol/L (98-107); Potassium 2.9 mmol/L (3.5-5.1)
[2024-11-09 03:25] LABS: BUN/Creatinine Ratio 19.5 (10.0-20.0)
[2024-11-09 03:31] LABS: Blood Urea Nitrogen 66 mg/dL (9-23); Glucose 121 mg/dL (74-106)
[2024-11-09 04:14] LABS: Anisocytosis Slight; Polychromasia Slight
--- NOTE | 2024-11-09 08:35 | DVHPN2 ---
Subjective Patient continues to be encephalopathic. Following some commands Reviewed: Care Plan, H&P, Labs, Medications, Previous Orders, Radiology, Other (Consultants) Changes from previous H/P or p: No Changes General: Per HPI Objective Vitals Vital Signs Date Time Temp Pulse Resp B/P (MAP) Pulse Ox O2 Delivery O2 Flow Rate FiO2 11/09/24 07:49 30 11/09/24 07:46 25 100 Trach Collar 8 11/09/24 07:30 99.0 109 127/86 (100) 99.0 Intake/Output Intake and Output 11/09/24 07:00 Intake Total 2898 ml Output Total 1302 ml Balance 1596 ml Intake Oral 750 ml IV Total 1460 ml Tube Feeding 688 ml Output Urine Total 1050 ml Stool Total 2 ml Drainage Total 250 ml General Appearance: Alert, Oriented X3, Cooperative, mild distress, Other (Intubated and sedated) HEENT: Atraumatic, PERRLA Lungs: Clear to auscultation, Normal air movement, Other (Mechanical ventilation. Decreased breath sounds at bases) Cardiovascular: Normal S1, Normal S2, Other (Sinus tachycardia) Abdomen: Other (NG with bilious drainage now) Extremities: Normal pulses Neuro: Other (Unable to assess) Skin: Dry, Intact, Wounds (Abdominal wound dry and intact), Other Psych/Mental Status: Other Medications Current Medications Medications Dose Ordered Sig/Wally Route Start Time Stop Time Status Last Admin Dose Admin Ondansetron HCl 4 mg Q4HP PRN IV 10/04/24 11:45 Morphine Sulfate 2 mg Q4HPRN PRN IV 10/04/24 11:45 Cancel Nitroglycerin 0.4 mg Q5MINP PRN SL 10/04/24 11:45 Morphine Sulfate 2 mg Q30M PRN IV 10/04/24 11:45 Cancel Lorazepam 50 mg/ Sodium Chloride 50 ml @ 1 mls/hr Q24H IV 10/04/24 18:15 Cancel Amino Acids 0 ml @ 0 mls/hr PER PHARMACY IV 10/05/24 14:30 UNV Diagnostic Test (Pha) 1 strip Q6HR 10/05/24 18:00 11/09/24 06:31 1 STRIP Insulin Human Regular FOLLOW SLIDING SCALE Q6HR SC 10/05/24 18:00 11/03/24 17:23 2 UNITS Dextrose 50 ml UD IV 10/05/24 14:45 Meropenem 50 ml @ 17 mls/hr Q12HR IV 10/07/24 10:00 UNV Labetalol HCl 10 mg Q2HPRN PRN IV 10/08/24 09:30 11/06/24 15:22 10 MG Levalbuterol HCl 0.625 mg Q6HR NEB 10/13/24 12:00 11/09/24 06:10 0.625 MG Ipratropium [place] 0.5 mg Q6HR NEB 10/13/24 12:00 11/09/24 06:10 0.5 MG Norepinephrine Bitartrate 32 mg/ Sodium Chloride 250 ml @ 0.938 mls/ hr Q24H IV 10/14/24 10:15 10/30/24 21:15 0.938 MLS/HR Morphine Sulfate 2 mg Q4HPRN PRN IV 10/21/24 11:30 11/03/24 13:31 2 MG Nicardipine/ Sodium Chloride 200 ml @ 50 mls/hr Q4H IV 10/22/24 08:45 10/30/24 15:34 75 MLS/HR Acetaminophen 650 mg Q6HP PRN GT 10/22/24 09:00 11/06/24 15:06 650 MG Metoprolol Tartrate 1.25 mg Q6HPRN PRN IV 10/27/24 09:45 10/31/24 12:17 1.25 MG Sucralfate 1 gm BID@0600,2200 GT 10/28/24 22:00 11/09/24 06:31 1 GM Pantoprazole Sodium 50 ml @ 0 mls/hr Q0M IV 10/28/24 16:15 Cancel Midazolam HCl 1 mg Q2HP PRN IV 10/30/24 16:45 11/03/24 15:29 1 MG Epoetin Roger-epbx 10,000 unit MWF@2100 SC 10/31/24 21:00 11/05/24 20:30 10,000 UNIT Acetaminophen 650 mg Q6HP PRN [place] 10/31/24 13:30 11/06/24 05:26 650 MG Sodium Chloride 10 ml QSHIFT@ IV 10/31/24 22:00 11/09/24 07:21 10 ML Pantoprazole Sodium 80 mg BID IV 10/31/24 22:00 11/09/24 07:20 80 MG Micafungin Sodium 100 mg/Sodium Chloride 100 ml @ 100 mls/hr DAILY IV 11/02/24 10:00 11/09/24 07:21 100 MLS/HR Enoxaparin Sodium 30 mg DAILY SC 11/03/24 10:00 11/09/24 07:21 30 MG Meropenem 50 ml @ 17 mls/hr Q12HR IV 11/03/24 22:00 11/08/24 22:33 17 MLS/HR Metoprolol Tartrate 25 mg BID PO 11/06/24 10:00 11/09/24 07:21 25 MG Acetaminophen/ Hydrocodone Bitart 1 tab Q4HPRN PRN PO 11/06/24 09:15 Metoclopramide HCl 5 mg Q8HR GT 11/06/24 14:00 11/09/24 06:31 5 MG Enteral Nutritional Formula 1,000 ml 50ML/HR GT 11/06/24 09:30 Sodium Chloride 1,000 ml @ 70 mls/hr [id number] IV 11/08/24 11:30 11/09/24 01:42 70 MLS/HR Ibuprofen 600 mg Q6HP PRN PO 11/08/24 16:45 11/08/24 17:38 600 MG Laboratory Results Laboratory Tests 11/09/24 02:50 Chemistry Test 11/09/24 02:50 Calcium Level 8.1 mg/dL (8.7-10.4) L Urinalysis Test 10/05/24 15:05 10/26/24 20:33 11/07/24 12:40 Urine Mucus Few (None Seen) Urine Color Light-yellow (Yellow) Urine Clarity Clear (Clear) Urine pH 7.0 (5.0-9.0) Urine Specific [place] 1.014 (1.001-1.035) Urine Protein 1+ (Negative) H Urine Ketones Negative (Negative) Urine Blood 1+ /uL (Negative) H Urine Nitrite Negative (Negative) Urine Bilirubin Negative (Negative) Urine Urobilinogen Normal mg/dL (Negative) Urine Leukocyte Esterase Negative /uL (Negative) Urine RBC 1 /hpf (0 - 3) Urine Microscopic WBC 3 /HPF (0-3) Urine Squamous Epithelial Cells None seen /hpf (<5) Urine Bacteria Few /hpf (None Seen) H Urine Glucose Normal mg/dL (Normal) Urine Creatinine 64.63 mg/dL (30.0-125.0) Urine Protein/Creatinine Ratio 3.11 Urine Sodium 34 mmol/L (40-220) L Urine Total Protein 200.7 mg/dL (1-14) H Microbiology Microbiology Date/Time Source Procedure Growth Status 11/07/24 09:52 Blood Blood Culture - Preliminary Resulted 10/31/24 21:00 Voided Urine Urine Culture - Final Complete 10/18/24 09:21 Pleural Fluid Gram Stain - Final Complete 10/18/24 09:21 Pleural Fluid Body Fluid Culture - Final Complete 10/16/24 12:05 Bronchial Washings Gram Stain - Final Complete 10/16/24 12:05 Bronchial Washings Respiratory Culture - Final Complete 10/04/24 17:10 Nose MRSA Screen - Final Complete Labs and/or images reviewed: Labs reviewed by me, Image(s) reviewed by me Assessment/Plan Assessment/Plan Impression: -severe septic shock -pneumoperitoneum secondary to perforated gastric ulcer -acute kidney injury, hemodynamically mediated, probable VMN -acute hypoxic respiratory failure -shock liver -nicotine dependence -history of CVA -right upper extremity DVT -multifocal pneumonia, probable Gram-positive/Gram-negative etiology -anemia secondary to nutrition, renal failure -bilateral pleural effusions -small left pneumothorax -Failure of ventilator weaning, status post tracheostomy -fungemia Plan: Events: Patient has persistent intermittent fevers. Repeat blood culture with budding yeast. Continues to have fungemia despite being in a micafungin. Infectious Disease consultation placed. Patient does have complete central line vacation. Surgical consultation also placed for evaluation of cholecystectomy. Awaiting HIDA scan. -GI consultation: Discussed case. -increase tube feeding to 50 mL/hour as tolerated -increase metoprolol tartrate to 25 mg p.o. b.i.d. -antibiotic therapy: Meropenem, micafungin -nephrology consultation: Daily assessment for hemodialysis -repeat labs, chest x-ray, ABG in a.m. Critical care time spent with patient discussing and formulating plan of care: 40 minutes. This does not include time spent performing procedures. This medical document was created using an electronic medical record system with [employer] system. Although this document has been carefully reviewed, there may still be some phonetic and typographical errors. These areas are purely typographical due to imperfections of the software programs, and do not reflect any compromise in the patient's medical care. Plan discussed with: Patient, Other (RN) My Orders Orders - CHEYENNE PIKE NP Procedure Category Date Status Time Pt Request For Service PT 11/09/24 Logged 04:00 Ibuprofen Tablet PHA 11/08/24 In Process (Motrin Tablet) 16:45 * Infectious Dilan- CONS 11/09/24 Transmitted K Vance 08:19 Potassium Effervesent PHA 11/09/24 Logged Tab (Klor-Con/Ef) 08:30 Potassium LAB 11/09/24 Logged 13:00 Magnesium LAB 11/10/24 Verified 04:00 Complete Blood Count LAB 11/10/24 Verified 04:00 Comprehensive LAB 11/10/24 Verified Metabolic Panel 04:00 Chest Xray 1 View XY 11/10/24 Logged 04:00 Date of Service: Nov 09, 2024 Billing Provider: CHEYENNE PIKE NP Common Visit Codes: 88809-[id number] CARE 30-74 MIN CHEYENNE PIKE NP Nov 09, 2024 08:35
[2024-11-09] MEDS: POTASSIUM EFFERVESENT TAB 25 MEQ GT ONE (09:26)
[2024-11-09 10:31] LABS: Alanine Aminotransferase 23.0 U/L (7-40); Bilirubin, Total 1.1 mg/dL (0.2-1.0); Total Protein 7.3 g/dL (5.7-8.2)
[2024-11-09 10:54] LABS: Albumin 3.0 g/dL (3.2-4.8); Alkaline Phosphatase 300.0 U/L (46-116); Bilirubin, Direct 0.8 mg/dL (<0.3)
[2024-11-09] MEDS ORDERED: POTASSIUM CHL 20MEQ/100ML 100 ML IV SCH (11:00)
--- NOTE | 2024-11-09 11:42 | DVHPN2 ---
Progress Note Date Seen: Nov 09, 2024 Medical Necessity Reason Pt with a Central, PICC or Fol: No The following are medically ne: Central Line, Gómez Catheter Reason for gómez catheter: Strict I&O Subjective Review of Systems: RESPIRATORY:Abnormal Other Systems: Patient seen and examined by myself today in follow-up patient with trach collar Objective vital signs Vital Sign Date Time Temp Pulse Resp B/P (MAP) Pulse Ox O2 Delivery O2 Flow Rate FiO2 11/09/24 10:30 106 27 153/84 (107) 100 11/09/24 09:59 30 11/09/24 09:57 Trach Collar 8 11/09/24 07:30 99.0 99.0 Total Intake and Output 11/08/24 11/08/24 11/09/24 15:00 23:00 07:00 Intake Total 360 ml 1310 ml 1298 ml Output Total 701 ml 601 ml Balance 360 ml 609 ml 697 ml medications Current Medications Medications Dose Ordered Sig/Wally Route Start Time Stop Time Status Last Admin Dose Admin Ondansetron HCl 4 mg Q4HP PRN IV 10/04/24 11:45 Morphine Sulfate 2 mg Q4HPRN PRN IV 10/04/24 11:45 Cancel Nitroglycerin 0.4 mg Q5MINP PRN SL 10/04/24 11:45 Morphine Sulfate 2 mg Q30M PRN IV 10/04/24 11:45 Cancel Lorazepam 50 mg/ Sodium Chloride 50 ml @ 1 mls/hr Q24H IV 10/04/24 18:15 Cancel Amino Acids 0 ml @ 0 mls/hr PER PHARMACY IV 10/05/24 14:30 UNV Diagnostic Test (Pha) 1 strip Q6HR 10/05/24 18:00 11/09/24 10:55 1 STRIP Insulin Human Regular FOLLOW SLIDING SCALE Q6HR SC 10/05/24 18:00 11/03/24 17:23 2 UNITS Dextrose 50 ml UD IV 10/05/24 14:45 Meropenem 50 ml @ 17 mls/hr Q12HR IV 10/07/24 10:00 UNV Labetalol HCl 10 mg Q2HPRN PRN IV 10/08/24 09:30 11/06/24 15:22 10 MG Levalbuterol HCl 0.625 mg Q6HR NEB 10/13/24 12:00 11/09/24 11:35 0.625 MG Ipratropium [place] 0.5 mg Q6HR NEB 10/13/24 12:00 11/09/24 11:35 0.5 MG Norepinephrine Bitartrate 32 mg/ Sodium Chloride 250 ml @ 0.938 mls/ hr Q24H IV 10/14/24 10:15 10/30/24 21:15 0.938 MLS/HR Morphine Sulfate 2 mg Q4HPRN PRN IV 10/21/24 11:30 11/03/24 13:31 2 MG Nicardipine/ Sodium Chloride 200 ml @ 50 mls/hr Q4H IV 10/22/24 08:45 10/30/24 15:34 75 MLS/HR Acetaminophen 650 mg Q6HP PRN GT 10/22/24 09:00 11/06/24 15:06 650 MG Metoprolol Tartrate 1.25 mg Q6HPRN PRN IV 10/27/24 09:45 10/31/24 12:17 1.25 MG Sucralfate 1 gm BID@0600,2200 GT 10/28/24 22:00 11/09/24 06:31 1 GM Pantoprazole Sodium 50 ml @ 0 mls/hr Q0M IV 10/28/24 16:15 Cancel Midazolam HCl 1 mg Q2HP PRN IV 10/30/24 16:45 11/03/24 15:29 1 MG Epoetin Roger-epbx 10,000 unit MWF@2100 SC 10/31/24 21:00 11/05/24 20:30 10,000 UNIT Sodium Chloride 10 ml QSHIFT@10,22 IV 10/31/24 22:00 11/09/24 07:21 10 ML Pantoprazole Sodium 80 mg BID IV 10/31/24 22:00 11/09/24 07:20 80 MG Micafungin Sodium 100 mg/Sodium Chloride 100 ml @ 100 mls/hr DAILY IV 11/02/24 10:00 11/09/24 07:21 100 MLS/HR Enoxaparin Sodium 30 mg DAILY SC 11/03/24 10:00 11/09/24 07:21 30 MG Meropenem 50 ml @ 17 mls/hr Q12HR IV 11/03/24 22:00 11/09/24 08:47 17 MLS/HR Metoprolol Tartrate 25 mg BID PO 11/06/24 10:00 11/09/24 07:21 25 MG Acetaminophen/ Hydrocodone Bitart 1 tab Q4HPRN PRN PO 11/06/24 09:15 Metoclopramide HCl 5 mg Q8HR GT 11/06/24 14:00 11/09/24 06:31 5 MG Enteral Nutritional Formula 1,000 ml 50ML/HR GT 11/06/24 09:30 Sodium Chloride 1,000 ml @ 70 mls/hr [id number] IV 11/08/24 11:30 11/09/24 01:42 70 MLS/HR Ibuprofen 600 mg Q6HP PRN PO 11/08/24 16:45 11/08/24 17:38 600 MG Examination: LUNGS:Normal, CVS:Normal, MSK:Normal laboratory and microbiology Laboratory Tests 11/09/24 02:50 Test 11/09/24 02:50 Range/Units Serum Glucose 121 H 74-106 mg/dL Microbiology Date/Time Source Procedure Growth Status 11/07/24 09:52 Blood Blood Culture - Preliminary Resulted 10/31/24 21:00 Voided Urine Urine Culture - Final Complete 10/18/24 09:21 Pleural Fluid Gram Stain - Final Complete 10/18/24 09:21 Pleural Fluid Body Fluid Culture - Final Complete 10/16/24 12:05 Bronchial Washings Gram Stain - Final Complete 10/16/24 12:05 Bronchial Washings Respiratory Culture - Final Complete 10/04/24 17:10 Nose MRSA Screen - Final Complete Problem List/Assessment/Plan Problem List/Assessment/Plan Assessment/Plan Acute kidney injury likely ATN, FeNa ,> 2% requiring intermittent hemodialysis Acute respiratory failure, patient intubated on ventilator Hemodynamic shock acute blood loss anemia Perforated gastric ulcer status post surgery 10/04 Hyponatremia likely due to volume overload Pneumonia Sepsis Hypomagnesemia Hypokalemia Hypertensive urgency Empyema status post right chest tube Acute blood loss anemia status post PRBC Recommendations Kidney function slowly improving off hemodialysis Increased urine output Hyponatremia appropriately resolved Gómez catheter Strict I&Os DC vancomycin DC ibuprofen ID consult KCL replacement We will continue to follow Plan discussed with: Patient, Other (Nurse) My Orders My Orders Orders - MILADY ANDERSON MD Procedure Category Date Status Time Potassium Chl PHA 11/09/24 Logged 20meq/100ml 11:45 Dietary Evaluation Review Comments: 1. Continue TPN to meet at least 75% estimated needs 2. Continue current POC Expected Outcomes/Goals: FU 2-3 days to meet adequate energy & protein within 7 days of NPO Protein Calorie Malnutrition: Severe (rn) CC Plasma Assessment Blood Product Administration S: [id number] MILADY ANDERSON MD Nov 09, 2024 11:42
[2024-11-09] MEDS: POTASSIUM CHL 20MEQ/100ML 100 ML IV ONE ×2 (11:45→12:26)
--- NOTE | 2024-11-09 13:47 | DVHPN2 ---
Progress Note - Dictate Date Seen: Nov 09, 2024 Medical Necessity Reason Pt with a Central, PICC or Fol: No The following are medically ne: Central Line, Gómez Catheter Reason for gómez catheter: Strict I&O vital signs Vital Sign Date Time Temp Pulse Resp B/P (MAP) Pulse Ox O2 Delivery O2 Flow Rate FiO2 11/09/24 12:29 100.2 11/09/24 12:20 30 11/09/24 12:19 26 100 Trach Collar 8 11/09/24 12:00 100 136/86 (103) Total Intake and Output 11/08/24 11/08/24 11/09/24 15:00 23:00 07:00 Intake Total 360 ml 1310 ml 1298 ml Output Total 701 ml 601 ml Balance 360 ml 609 ml 697 ml medications Current Medications Medications Dose Ordered Sig/Wally Route Start Time Stop Time Status Last Admin Dose Admin Ondansetron HCl 4 mg Q4HP PRN IV 10/04/24 11:45 Morphine Sulfate 2 mg Q4HPRN PRN IV 10/04/24 11:45 Cancel Nitroglycerin 0.4 mg Q5MINP PRN SL 10/04/24 11:45 Morphine Sulfate 2 mg Q30M PRN IV 10/04/24 11:45 Cancel Lorazepam 50 mg/ Sodium Chloride 50 ml @ 1 mls/hr Q24H IV 10/04/24 18:15 Cancel Amino Acids 0 ml @ 0 mls/hr PER PHARMACY IV 10/05/24 14:30 UNV Diagnostic Test (Pha) 1 strip Q6HR 10/05/24 18:00 11/09/24 10:55 1 STRIP Insulin Human Regular FOLLOW SLIDING SCALE Q6HR SC 10/05/24 18:00 11/03/24 17:23 2 UNITS Dextrose 50 ml UD IV 10/05/24 14:45 Meropenem 50 ml @ 17 mls/hr Q12HR IV 10/07/24 10:00 UNV Labetalol HCl 10 mg Q2HPRN PRN IV 10/08/24 09:30 11/06/24 15:22 10 MG Levalbuterol HCl 0.625 mg Q6HR NEB 10/13/24 12:00 11/09/24 11:35 0.625 MG Ipratropium [place] 0.5 mg Q6HR NEB 10/13/24 12:00 11/09/24 11:35 0.5 MG Norepinephrine Bitartrate 32 mg/ Sodium Chloride 250 ml @ 0.938 mls/ hr Q24H IV 10/14/24 10:15 10/30/24 21:15 0.938 MLS/HR Morphine Sulfate 2 mg Q4HPRN PRN IV 10/21/24 11:30 11/03/24 13:31 2 MG Nicardipine/ Sodium Chloride 200 ml @ 50 mls/hr Q4H IV 10/22/24 08:45 10/30/24 15:34 75 MLS/HR Acetaminophen 650 mg Q6HP PRN GT 10/22/24 09:00 11/06/24 15:06 650 MG Metoprolol Tartrate 1.25 mg Q6HPRN PRN IV 10/27/24 09:45 10/31/24 12:17 1.25 MG Sucralfate 1 gm BID@0600,2200 GT 10/28/24 22:00 11/09/24 06:31 1 GM Pantoprazole Sodium 50 ml @ 0 mls/hr Q0M IV 10/28/24 16:15 Cancel Midazolam HCl 1 mg Q2HP PRN IV 10/30/24 16:45 11/03/24 15:29 1 MG Epoetin Roger-epbx 10,000 unit MWF@2100 SC 10/31/24 21:00 11/05/24 20:30 10,000 UNIT Sodium Chloride 10 ml QSHIFT@10,22 IV 10/31/24 22:00 11/09/24 07:21 10 ML Pantoprazole Sodium 80 mg BID IV 10/31/24 22:00 11/09/24 07:20 80 MG Micafungin Sodium 100 mg/Sodium Chloride 100 ml @ 100 mls/hr DAILY IV 11/02/24 10:00 11/09/24 07:21 100 MLS/HR Enoxaparin Sodium 30 mg DAILY SC 11/03/24 10:00 11/09/24 07:21 30 MG Meropenem 50 ml @ 17 mls/hr Q12HR IV 11/03/24 22:00 11/09/24 08:47 17 MLS/HR Metoprolol Tartrate 25 mg BID PO 11/06/24 10:00 11/09/24 07:21 25 MG Acetaminophen/ Hydrocodone Bitart 1 tab Q4HPRN PRN PO 11/06/24 09:15 Metoclopramide HCl 5 mg Q8HR GT 11/06/24 14:00 11/09/24 12:26 5 MG Enteral Nutritional Formula 1,000 ml 50ML/HR GT 11/06/24 09:30 Sodium Chloride 1,000 ml @ 70 mls/hr [id number] IV 11/08/24 11:30 11/09/24 01:42 70 MLS/HR Ibuprofen 600 mg Q6HP PRN PO 11/08/24 16:45 11/09/24 12:29 600 MG laboratory and microbiology Laboratory Tests 11/09/24 02:50 Test 11/09/24 02:50 Range/Units Serum Glucose 121 H 74-106 mg/dL Assessment/Plan Impression Acute hypoxemic respiratory failure S/p tracheostomy Perforated viscus Septic shock Smoker Patient seen and examined in ICU Events S/p tracheostomy Tolerating trache collar x2 days No distress Labs and imaging reviewed ABG reviewed Management Vent support as needed Titrate to maintain sats 90% or above Trache collar follow up with gen sx Continue antibiotics and antifungals F/u cultures Bronchodilators Monitor renal function Monitor electrolytes Supplement as needed HD per nephrology Nutritional support Tube feedings DVT prophylaxis Critical care time 35 minutes Dietary Evaluation Review Comments: 1. Continue TPN to meet at least 75% estimated needs 2. Continue current POC Expected Outcomes/Goals: FU 2-3 days to meet adequate energy & protein within 7 days of NPO Protein Calorie Malnutrition: Severe (rn) Plan discussed with: Other (Rn) CC Plasma Assessment Blood Product Administration S: [id number] VALENTE DEE MD Nov 09, 2024 13:47
--- NOTE | 2024-11-09 14:45 | DVHPN2 ---
Progress Note - Dictate Date Seen: Nov 09, 2024 Medical Necessity Reason Pt with a Central, PICC or Fol: No The following are medically ne: Central Line, Gómez Catheter Reason for gómez catheter: Strict I&O Subjective Patient is awake and alert on trach collar No active GI bleeding is reported Cholecystostomy tube is draining bile Patient is still on tube feedings Leukocytosis is improving and liver enzymes are trending down alk-phos is still 300 vital signs Vital Sign Date Time Temp Pulse Resp B/P (MAP) Pulse Ox O2 Delivery O2 Flow Rate FiO2 11/09/24 14:06 30 11/09/24 14:05 28 100 Trach Collar 8 11/09/24 14:00 102 11/09/24 14:00 99.0 140/84 (102) 99.0 Total Intake and Output 11/08/24 11/08/24 11/09/24 15:00 23:00 07:00 Intake Total 360 ml 1310 ml 1298 ml Output Total 701 ml 601 ml Balance 360 ml 609 ml 697 ml medications Current Medications Medications Dose Ordered Sig/Wally Route Start Time Stop Time Status Last Admin Dose Admin Ondansetron HCl 4 mg Q4HP PRN IV 10/04/24 11:45 Morphine Sulfate 2 mg Q4HPRN PRN IV 10/04/24 11:45 Cancel Nitroglycerin 0.4 mg Q5MINP PRN SL 10/04/24 11:45 Morphine Sulfate 2 mg Q30M PRN IV 10/04/24 11:45 Cancel Lorazepam 50 mg/ Sodium Chloride 50 ml @ 1 mls/hr Q24H IV 10/04/24 18:15 Cancel Amino Acids 0 ml @ 0 mls/hr PER PHARMACY IV 10/05/24 14:30 UNV Diagnostic Test (Pha) 1 strip Q6HR 10/05/24 18:00 11/09/24 10:55 1 STRIP Insulin Human Regular FOLLOW SLIDING SCALE Q6HR SC 10/05/24 18:00 11/03/24 17:23 2 UNITS Dextrose 50 ml UD IV 10/05/24 14:45 Meropenem 50 ml @ 17 mls/hr Q12HR IV 10/07/24 10:00 UNV Labetalol HCl 10 mg Q2HPRN PRN IV 10/08/24 09:30 11/06/24 15:22 10 MG Levalbuterol HCl 0.625 mg Q6HR NEB 10/13/24 12:00 11/09/24 11:35 0.625 MG Ipratropium [place] 0.5 mg Q6HR NEB 10/13/24 12:00 11/09/24 11:35 0.5 MG Norepinephrine Bitartrate 32 mg/ Sodium Chloride 250 ml @ 0.938 mls/ hr Q24H IV 10/14/24 10:15 10/30/24 21:15 0.938 MLS/HR Morphine Sulfate 2 mg Q4HPRN PRN IV 10/21/24 11:30 11/03/24 13:31 2 MG Nicardipine/ Sodium Chloride 200 ml @ 50 mls/hr Q4H IV 10/22/24 08:45 10/30/24 15:34 75 MLS/HR Acetaminophen 650 mg Q6HP PRN GT 10/22/24 09:00 11/06/24 15:06 650 MG Metoprolol Tartrate 1.25 mg Q6HPRN PRN IV 10/27/24 09:45 10/31/24 12:17 1.25 MG Sucralfate 1 gm BID@0600,2200 GT 10/28/24 22:00 11/09/24 06:31 1 GM Pantoprazole Sodium 50 ml @ 0 mls/hr Q0M IV 10/28/24 16:15 Cancel Midazolam HCl 1 mg Q2HP PRN IV 10/30/24 16:45 11/03/24 15:29 1 MG Epoetin Roger-epbx 10,000 unit MWF@2100 SC 10/31/24 21:00 11/05/24 20:30 10,000 UNIT Sodium Chloride 10 ml QSHIFT@10,22 IV 10/31/24 22:00 11/09/24 07:21 10 ML Pantoprazole Sodium 80 mg BID IV 10/31/24 22:00 11/09/24 07:20 80 MG Micafungin Sodium 100 mg/Sodium Chloride 100 ml @ 100 mls/hr DAILY IV 11/02/24 10:00 11/09/24 07:21 100 MLS/HR Enoxaparin Sodium 30 mg DAILY SC 11/03/24 10:00 11/09/24 07:21 30 MG Meropenem 50 ml @ 17 mls/hr Q12HR IV 11/03/24 22:00 11/09/24 08:47 17 MLS/HR Metoprolol Tartrate 25 mg BID PO 11/06/24 10:00 11/09/24 07:21 25 MG Acetaminophen/ Hydrocodone Bitart 1 tab Q4HPRN PRN PO 11/06/24 09:15 Metoclopramide HCl 5 mg Q8HR GT 11/06/24 14:00 11/09/24 12:26 5 MG Enteral Nutritional Formula 1,000 ml 50ML/HR GT 11/06/24 09:30 Sodium Chloride 1,000 ml @ 70 mls/hr [id number] IV 11/08/24 11:30 11/09/24 01:42 70 MLS/HR Ibuprofen 600 mg Q6HP PRN PO 11/08/24 16:45 11/09/24 12:29 600 MG objective General Appearance: Alert, awake on trach collar HEENT: Atraumatic, PERRLA;Mild pallor, NG tube tolerating enteral tube feedings Lungs: Decreased breath sounds at bases) Cardiovascular: Regular rate, Normal S1, Normal S2, Abdomen: soft nontender well-healed midline scar without any drainage, hypoactive bowel sounds Cholecystostomy tube draining bile laboratory and microbiology Laboratory Tests 11/09/24 02:50 Test 11/09/24 02:50 Range/Units Serum Glucose 121 H 74-106 mg/dL Problems(with codes): (1) Cholecystitis (2) TIA (transient ischemic attack) (3) Altered mental status (4) Severe anemia (5) Acute kidney injury (6) Perforated viscus (7) NSTEMI (non-ST elevated myocardial infarction) (8) GI bleed (9) Leukocytosis Prognosis Plan Continue supportive care Patient tentatively scheduled for HIDA scan tomorrow Cholecystectomy as per surgical consult Swallow evaluation next week Dietary Evaluation Review Comments: 1. Continue TPN to meet at least 75% estimated needs 2. Continue current POC Expected Outcomes/Goals: FU 2-3 days to meet adequate energy & protein within 7 days of NPO Protein Calorie Malnutrition: Severe (rn) Plan discussed with: Patient, Other (ICU Nurse and Junito) CC Plasma Assessment Blood Product Administration S: [id number] GURJIT NOBLE MD Nov 09, 2024 14:45
--- NOTE | 2024-11-09 17:32 | DVH ---
RIGHT Upper Extremity Venous Duplex Clinical History: R/O DVT Comparison: US RT UPPER DVT on DOS: 11/02/24 Technique: Duplex Doppler evaluation of the venous system of the RIGHT lower neck and upper extremity including color Doppler and spectral/pulsed waveform analysis was performed. Findings: The internal jugular vein demonstrates appropriate compressibility and waveform variability. The subclavian vein is patent on color Doppler evaluation without intraluminal thrombus and demonstra kourtney waveform variability. The visualized portion of the brachiocephalic vein is patent on color Doppler evaluation without intr aluminal thrombus and demonstrates waveform variability. The axillary vein demonstrates appropriate compressibility and waveform variability. The brachial veins demonstrate appropriate compressibility and patency on Doppler evaluation. The basilic vein demonstrates appropriate compressibility and patency on Doppler evaluation. Thrombus is seen in the cephalic vein in the forearm Impression: 1. Thrombus is seen in the cephalic vein in the forearm.
--- NOTE | 2024-11-09 23:17 | DVHPN2 ---
Progress Note - Dictate Date Seen: Nov 09, 2024 Medical Necessity Reason Pt with a Central, PICC or Fol: No The following are medically ne: Central Line, Gómez Catheter Reason for gómez catheter: Strict I&O Subjective Mr. Perez is a 48 years old right-handed gentleman with a history of hypertension, dyslipidemia, multiple strokes, he was brought to the [facility] on 10/04/2024 with a chief company of recurrent syncope, in the hospital, the patient was found to have perforated viscus, and he went through surgical treatment, he was hospital course has been complicated with sepsis, septic shock, pneumonia, right upper extremity DVT. With appropriate treatment, the patient has improved, but he does not mentally recover as anticipated. I saw him on 08/23/2023 for TIA I have seen and examined the patient, discussed with his nurse, he keeps improving, he is awake, he follows verbal commands, he is able to move the left arm and both legs, T-max: 100.2 Blood culture, Urinalysis, 08/22/2023: Unremarkable UDS, 08/22/2023: Negative WBC/Hb/PLT'/MCV, 08/22/2023: 10.8/13.1/184/87.4, 10/28/2024: 15/8/487/89.3 10/31/2024: 24.3/9.1/77/88.4 Troponin 1 high-sensitivity, 08/22/2023: 336, 273/300 BUNs/CR, 08/22/2023: 15/1.45 10/31/2024: Two 9/2.42 GFR, 08/22/2023: 59 Liver function test, 10/04/2024: Unremarkable TBI/AST/ALT/AP, 10/04/2024: 0.6/410/335/31, 10/05/2024: 1.3/582/423/39, 10/31/2024: 3.6/54/98/117 TG/CHO L/LDL/HDL, 08/2023: 136/166/111/39 TSH, 08/23/2023: 4.25 DONAL, 08/23/2023: 1. No evidence of intracardiac source of embolus in the study conducted today. 2. Normal valves without significant masses or change vegetations were discernible. 3. No evidence of intra-atrial shunting by bubble study and color Doppler. 4. Mild atherosclerotic plaquing was visualized in the arch of the aorta without evidence of dissection in the visualized part CT head, 10/24/2024: 1. No intracranial hemorrhage or mass effect. 2. Pdms-id-dhnpaufz chronic microvascular ischemic changes. 3. Old bilateral basal ganglia lacunar infarcts. 4. Small bilateral mastoid effusions. CT abdomen/pelvis, 10/04/2024: 1. Extensive intra-abdominal free air concerning for perforated viscus. Surgical consultation is recommended. 2. Enteritis is seen in multiple loops of small bowel in the left hemiabdomen. 3. Moderate abdominopelvic ascites. 4. Small right pleural effusion. CTA neck, head, 08/22/2023:1. CTA head demonstrates no evidence of large vessel occlusion, aneurysm, or significant stenosis. 2. CTA neck demonstrates no evidence of carotid or vertebral dissection or significant stenosis. 3. No noncontrast CT head was performed. 4. Additional findings as detailed above MRI head, 08/23/2023: No acute infarct, intracranial hemorrhage, mass effect, or hydrocephalus. Moderate periventricular and deep subcortical white matter T2 hyperintensities which are nonspecific, but most likely related to sequela of chronic microvascular ischemic changes (I have reviewed the MRI films with our in-house radiologist, Dr. Black, the patient has bilateral multiple subacute/chronic infarcts) MRI head, 11/01/2024: No acute cerebrovascular ischemia. Urtl-ro-yynslnbr chronic microvascular ischemic changes. Bilateral mastoid effusions. Old bilateral basal ganglia / lopes radiata infarcts. vital signs Vital Sign Date Time Temp Pulse Resp B/P (MAP) Pulse Ox O2 Delivery O2 Flow Rate FiO2 11/09/24 22:06 113 138/72 11/09/24 22:04 22 95 30 11/09/24 20:00 Mechanical Ventilator+ 16 11/09/24 18:00 99.1 99.1 Total Intake and Output 11/08/24 11/08/24 11/09/24 15:00 23:00 07:00 Intake Total 360 ml 1310 ml 1298 ml Output Total 701 ml 601 ml Balance 360 ml 609 ml 697 ml medications Current Medications Medications Dose Ordered Sig/Wally Route Start Time Stop Time Status Last Admin Dose Admin Ondansetron HCl 4 mg Q4HP PRN IV 10/04/24 11:45 Morphine Sulfate 2 mg Q4HPRN PRN IV 10/04/24 11:45 Cancel Nitroglycerin 0.4 mg Q5MINP PRN SL 10/04/24 11:45 Morphine Sulfate 2 mg Q30M PRN IV 10/04/24 11:45 Cancel Lorazepam 50 mg/ Sodium Chloride 50 ml @ 1 mls/hr Q24H IV 10/04/24 18:15 Cancel Amino Acids 0 ml @ 0 mls/hr PER PHARMACY IV 10/05/24 14:30 UNV Diagnostic Test (Pha) 1 strip Q6HR 10/05/24 18:00 11/09/24 17:47 1 STRIP Insulin Human Regular FOLLOW SLIDING SCALE Q6HR SC 10/05/24 18:00 11/03/24 17:23 2 UNITS Dextrose 50 ml UD IV 10/05/24 14:45 Meropenem 50 ml @ 17 mls/hr Q12HR IV 10/07/24 10:00 UNV Labetalol HCl 10 mg Q2HPRN PRN IV 10/08/24 09:30 11/09/24 19:40 10 MG Levalbuterol HCl 0.625 mg Q6HR NEB 10/13/24 12:00 11/09/24 18:06 0.625 MG Ipratropium [place] 0.5 mg Q6HR NEB 10/13/24 12:00 11/09/24 18:06 0.5 MG Norepinephrine Bitartrate 32 mg/ Sodium Chloride 250 ml @ 0.938 mls/ hr Q24H IV 10/14/24 10:15 10/30/24 21:15 0.938 MLS/HR Morphine Sulfate 2 mg Q4HPRN PRN IV 10/21/24 11:30 11/03/24 13:31 2 MG Nicardipine/ Sodium Chloride 200 ml @ 50 mls/hr Q4H IV 10/22/24 08:45 10/30/24 15:34 75 MLS/HR Acetaminophen 650 mg Q6HP PRN GT 10/22/24 09:00 11/06/24 15:06 650 MG Metoprolol Tartrate 1.25 mg Q6HPRN PRN IV 10/27/24 09:45 10/31/24 12:17 1.25 MG Sucralfate 1 gm BID@0600,2200 GT 10/28/24 22:00 11/09/24 22:05 1 GM Pantoprazole Sodium 50 ml @ 0 mls/hr Q0M IV 10/28/24 16:15 Cancel Midazolam HCl 1 mg Q2HP PRN IV 10/30/24 16:45 11/03/24 15:29 1 MG Epoetin Roegr-epbx 10,000 unit MWF@2100 SC 10/31/24 21:00 11/05/24 20:30 10,000 UNIT Sodium Chloride 10 ml QSHIFT@10,22 IV 10/31/24 22:00 11/09/24 22:07 10 ML Pantoprazole Sodium 80 mg BID IV 10/31/24 22:00 11/09/24 22:06 80 MG Micafungin Sodium 100 mg/Sodium Chloride 100 ml @ 100 mls/hr DAILY IV 11/02/24 10:00 11/09/24 07:21 100 MLS/HR Enoxaparin Sodium 30 mg DAILY SC 11/03/24 10:00 11/09/24 07:21 30 MG Meropenem 50 ml @ 17 mls/hr Q12HR IV 11/03/24 22:00 11/09/24 22:07 17 MLS/HR Metoprolol Tartrate 25 mg BID PO 11/06/24 10:00 11/09/24 22:06 25 MG Acetaminophen/ Hydrocodone Bitart 1 tab Q4HPRN PRN PO 11/06/24 09:15 Metoclopramide HCl 5 mg Q8HR GT 11/06/24 14:00 11/09/24 12:26 5 MG Enteral Nutritional Formula 1,000 ml 50ML/HR GT 11/06/24 09:30 Sodium Chloride 1,000 ml @ 70 mls/hr [id number] IV 11/08/24 11:30 11/09/24 17:30 70 MLS/HR Ibuprofen 600 mg Q6HP PRN PO 11/08/24 16:45 11/09/24 12:29 600 MG objective General: the patient is well developed and nourished. No acute distress. MENTAL STATUS: Subjective SPEECH, LANGUAGE, HIGHER CORTICAL FUNCTION: He does not vocalize/status post tracheostomy. CRANIAL NERVES:Intact visual ansari to confrontation (visual thread). Pupils are equal, round and reactive. EOMs full and conjugate. Mandibular strength intact. Facial muscles symmetrical and strength intact. SENSATION: Sensation to touch and pinprick is unremarkable MOTOR: Normal muscle bulk. No fasciculations. No abnormal movements or posturing. He moves the left arm: 3/5. Lt leg: >2/5. Moves the right leg REFLEXES: Deep tendon reflexes are increased bilaterally, clonus in both knees . No pathological reflexes. CEREBELLAR/COORDINATION: Deferred GAIT/STATION: deferred laboratory and microbiology Laboratory Tests 11/09/24 15:25 11/09/24 02:50 Test 11/09/24 02:50 Range/Units Serum Glucose 121 H 74-106 mg/dL Problem List Altered mental status Metabolic encephalopathy secondary to sepsis, septic shock, pneumonia Hypoxic encephalopathy Viscus perforation status post surgical repair GI bleeding Anemia Fever/ Sepsis/septic shock Respiratory failure S/P tracheostomy Multiple strokes Secondary to history methamphetamine, cocaine, alcohol use History of alcohol abuse History of cocaine, methamphetamine abuse Hyperreflexia secondary to multiple strokes Assessment/Plan Monitoring Supportive treatment ICU care Stabilize vitals Respiratory support/vent management Blood culture Follow-up labs IV antibiotics Resume Aspirin 81 mg daily later TPN Quit tobacco smoking No more alcohol, street drug abuse Stroke risk factors discussed More recommended per clinical course This medical document was created using an electronic medical record system with [employer] dictation system. Although this document has been carefully reviewed, there may still be some phonetic and typographical errors. These areas are purely typographical due to imperfections of the software programs, and do not reflect any compromise in the patient's medical care. Prognosis poor Dietary Evaluation Review Comments: 1. Continue TPN to meet at least 75% estimated needs 2. Continue current POC Expected Outcomes/Goals: FU 2-3 days to meet adequate energy & protein within 7 days of NPO Protein Calorie Malnutrition: Severe (rn) Plan discussed with: Other CC Plasma Assessment Blood Product Administration S: [id number] LEANDRO BLACK MD Nov 09, 2024 23:17
[2024-11-10] VITALS (61 sets, daily range): BP systolic 118–219; BP diastolic 52–115; PULSE 89–156; RESP 10–47; TEMP 97.8–101.5; O2SAT 92–100
[2024-11-10 03:37] LABS: Nucleated Red Blood Cells % 0.0 %
[2024-11-10 03:39] LABS: Alanine Aminotransferase 28 U/L (7-40); Anion Gap 13 (5-15); BUN/Creatinine Ratio 21.3 (10.0-20.0); Glucose 100 mg/dL (74-106); Hematocrit 20.3 % (41.0-53.0); Magnesium 2.0 mg/dL (1.6-2.6); Mean Corpuscular Hemoglobin 28.7 pg (28.0-32.0); Mean Corpuscular Volume 87.7 fL (80.0-100.0); Potassium 3.7 mmol/L (3.5-5.1); Total Protein 6.9 g/dL (5.7-8.2)
[2024-11-10 03:56] LABS: Alkaline Phosphatase 250 U/L (46-116); Bilirubin, Total 1.3 mg/dL (0.2-1.0); Blood Urea Nitrogen 60 mg/dL (9-23); Calcium 8.0 mg/dL (8.7-10.4); Carbon Dioxide 19 mmol/L (20-31); Chloride 113 mmol/L (98-107); Sodium 145 mmol/L (136-145)
[2024-11-10 03:57] LABS: Albumin 2.8 g/dL (3.2-4.8)
[2024-11-10 04:06] LABS: Hemoglobin 6.6 g/dL (13.5-17.5)
--- NOTE | 2024-11-10 05:00 | DVH ---
CHEST RADIOGRAPH Indication: pna Technique: Single frontal view of the chest was obtained COMPARISON: XY CHEST PORTABLE on DOS: 11/06/24, XY CHEST PORTABLE on DOS: 11/05/24, XY CHEST PORTABLE o n DOS: 11/02/24, XY CHEST PORTABLE on DOS: 11/01/24, XY CHEST XRAY 1 VIEW on DOS: 10/31/24 FINDINGS: Lines and Tubes: Tracheostomy and enteric catheter in satisfactory position. Lungs: Congestion Pleura: No effusion. No pneumothorax. Cardiomediastinal contours: Unremarkable Bones: Unremarkable IMPRESSION: Lines and tubes in satisfactory position. No significant interval change.
--- NOTE | 2024-11-10 08:45 | DVHPN2 ---
Progress Note - Dictate Date Seen: Nov 10, 2024 Medical Necessity Reason Pt with a Central, PICC or Fol: No The following are medically ne: Central Line, Gómez Catheter Reason for gómez catheter: Strict I&O Subjective Mr. Perez is a 48 years old right-handed gentleman with a history of hypertension, dyslipidemia, multiple strokes, he was brought to the [facility] on 10/04/2024 with a chief company of recurrent syncope, in the hospital, the patient was found to have perforated viscus, and he went through surgical treatment, he was hospital course has been complicated with sepsis, septic shock, pneumonia, right upper extremity DVT. With appropriate treatment, the patient has improved, but he does not mentally recover as anticipated. I saw him on 08/23/2023 for TIA I have seen and examined the patient, discussed with his nurse, sisters are in the room with him. he keeps improving, he is awake, he follows verbal commands, he is able to move the left arm and both legs, T-max: 100.2 Blood culture, Urinalysis, 08/22/2023: Unremarkable UDS, 08/22/2023: Negative WBC/Hb/PLT'/MCV, 08/22/2023: 10.8/13.1/184/87.4, 10/28/2024: 15/8/487/89.3 10/31/2024: 24.3/9.1/77/88.4 Troponin 1 high-sensitivity, 08/22/2023: 336, 273/300 BUNs/CR, 08/22/2023: 15/1.45 10/31/2024: Two 9/2.42 GFR, 08/22/2023: 59 Liver function test, 10/04/2024: Unremarkable TBI/AST/ALT/AP, 10/04/2024: 0.6/410/335/31, 10/05/2024: 1.3/582/423/39, 10/31/2024: 3.6/54/98/117 TG/CHO L/LDL/HDL, 08/2023: 136/166/111/39 TSH, 08/23/2023: 4.25 Extremity venous study, right arm, 11/09/2024: Thrombus is seen in the cephalic vein in the forearm. DONAL, 08/23/2023: 1. No evidence of intracardiac source of embolus in the study conducted today. 2. Normal valves without significant masses or change vegetations were discernible. 3. No evidence of intra-atrial shunting by bubble study and color Doppler. 4. Mild atherosclerotic plaquing was visualized in the arch of the aorta without evidence of dissection in the visualized part CT head, 10/24/2024: 1. No intracranial hemorrhage or mass effect. 2. Fhqo-oy-[id number] chronic microvascular ischemic changes. 3. Old bilateral basal ganglia lacunar infarcts. 4. Small bilateral mastoid effusions. CT abdomen/pelvis, 10/04/2024: 1. Extensive intra-abdominal free air concerning for perforated viscus. Surgical consultation is recommended. 2. Enteritis is seen in multiple loops of small bowel in the left hemiabdomen. 3. Moderate abdominopelvic ascites. 4. Small right pleural effusion. CTA neck, head, 08/22/2023:1. CTA head demonstrates no evidence of large vessel occlusion, aneurysm, or significant stenosis. 2. CTA neck demonstrates no evidence of carotid or vertebral dissection or significant stenosis. 3. No noncontrast CT head was performed. 4. Additional findings as detailed above MRI head, 08/23/2023: No acute infarct, intracranial hemorrhage, mass effect, or hydrocephalus. Moderate periventricular and deep subcortical white matter T2 hyperintensities which are nonspecific, but most likely related to sequela of chronic microvascular ischemic changes (I have reviewed the MRI films with our in-house radiologist, Dr. Black, the patient has bilateral multiple subacute/chronic infarcts) MRI head, 11/01/2024: No acute cerebrovascular ischemia. Rqwa-yu-rsoafgnr chronic microvascular ischemic changes. Bilateral mastoid effusions. Old bilateral basal ganglia / lopes radiata infarcts. vital signs Vital Sign Date Time Temp Pulse Resp B/P (MAP) Pulse Ox O2 Delivery O2 Flow Rate FiO2 11/10/24 08:08 101.5 11/10/24 06:35 128 22 133/71 (91) 96 30 11/10/24 06:00 Mechanical Ventilator+ 16 Total Intake and Output 11/09/24 11/09/24 11/10/24 15:00 23:00 07:00 Intake Total 810 ml 1080 ml 855 ml Output Total 641 ml 850 ml Balance 810 ml 439 ml 5 ml medications Current Medications Medications Dose Ordered Sig/Wally Route Start Time Stop Time Status Last Admin Dose Admin Ondansetron HCl 4 mg Q4HP PRN IV 10/04/24 11:45 Morphine Sulfate 2 mg Q4HPRN PRN IV 10/04/24 11:45 Cancel Nitroglycerin 0.4 mg Q5MINP PRN SL 10/04/24 11:45 Morphine Sulfate 2 mg Q30M PRN IV 10/04/24 11:45 Cancel Lorazepam 50 mg/ Sodium Chloride 50 ml @ 1 mls/hr Q24H IV 10/04/24 18:15 Cancel Amino Acids 0 ml @ 0 mls/hr PER PHARMACY IV 10/05/24 14:30 UNV Diagnostic Test (Pha) 1 strip Q6HR 10/05/24 18:00 11/10/24 06:01 1 STRIP Insulin Human Regular FOLLOW SLIDING SCALE Q6HR SC 10/05/24 18:00 11/03/24 17:23 2 UNITS Dextrose 50 ml UD IV 10/05/24 14:45 Meropenem 50 ml @ 17 mls/hr Q12HR IV 10/07/24 10:00 UNV Labetalol HCl 10 mg Q2HPRN PRN IV 10/08/24 09:30 11/09/24 19:40 10 MG Levalbuterol HCl 0.625 mg Q6HR NEB 10/13/24 12:00 11/10/24 06:35 0.625 MG Ipratropium [place] 0.5 mg Q6HR NEB 10/13/24 12:00 11/10/24 06:35 0.5 MG Norepinephrine Bitartrate 32 mg/ Sodium Chloride 250 ml @ 0.938 mls/ hr Q24H IV 10/14/24 10:15 10/30/24 21:15 0.938 MLS/HR Morphine Sulfate 2 mg Q4HPRN PRN IV 10/21/24 11:30 11/10/24 05:15 2 MG Nicardipine/ Sodium Chloride 200 ml @ 50 mls/hr Q4H IV 10/22/24 08:45 10/30/24 15:34 75 MLS/HR Acetaminophen 650 mg Q6HP PRN GT 10/22/24 09:00 11/10/24 08:08 650 MG Metoprolol Tartrate 1.25 mg Q6HPRN PRN IV 10/27/24 09:45 10/31/24 12:17 1.25 MG Sucralfate 1 gm BID@0600,2200 GT 10/28/24 22:00 11/10/24 05:59 1 GM Pantoprazole Sodium 50 ml @ 0 mls/hr Q0M IV 10/28/24 16:15 Cancel Midazolam HCl 1 mg Q2HP PRN IV 10/30/24 16:45 11/03/24 15:29 1 MG Epoetin Roger-epbx 10,000 unit MWF@2100 SC 10/31/24 21:00 11/05/24 20:30 10,000 UNIT Sodium Chloride 10 ml QSHIFT@,22 IV 10/31/24 22:00 11/09/24 22:07 10 ML Pantoprazole Sodium 80 mg BID IV 10/31/24 22:00 11/09/24 22:06 80 MG Micafungin Sodium 100 mg/Sodium Chloride 100 ml @ 100 mls/hr DAILY IV 11/02/24 10:00 11/09/24 07:21 100 MLS/HR Meropenem 50 ml @ 17 mls/hr Q12HR IV 11/03/24 22:00 11/09/24 22:07 17 MLS/HR Acetaminophen/ Hydrocodone Bitart 1 tab Q4HPRN PRN PO 11/06/24 09:15 Enteral Nutritional Formula 1,000 ml 50ML/HR GT 11/06/24 09:30 Sodium Chloride 1,000 ml @ 70 mls/hr [id number] IV 11/08/24 11:30 11/09/24 17:30 70 MLS/HR Metoprolol Tartrate 50 mg BID GT 11/10/24 10:00 UNV objective General: the patient is well developed and nourished. No acute distress. MENTAL STATUS: Subjective SPEECH, LANGUAGE, HIGHER CORTICAL FUNCTION: He does not vocalize/status post tracheostomy. CRANIAL NERVES:Intact visual ansari to confrontation (visual thread). Pupils are equal, round and reactive. EOMs full and conjugate. Mandibular strength intact. Facial muscles symmetrical and strength intact. SENSATION: Sensation to touch and pinprick is unremarkable MOTOR: Normal muscle bulk. No fasciculations. No abnormal movements or posturing. He moves the left arm: 3/5. Except for 1-2/5 in the shoulder. Lt leg: >2/5. Moves the right le-3/5 REFLEXES: Deep tendon reflexes are increased bilaterally, clonus in both knees . No pathological reflexes. CEREBELLAR/COORDINATION: Deferred GAIT/STATION: deferred laboratory and microbiology Laboratory Tests 11/10/24 02:50 Test 11/10/24 02:50 Range/Units Serum Glucose 100 74-106 mg/dL Problem List Altered mental status Metabolic encephalopathy secondary to sepsis, septic shock, pneumonia Hypoxic encephalopathy Viscus perforation status post surgical repair GI bleeding Anemia Fever/ Sepsis/septic shock Respiratory failure S/P tracheostomy Multiple strokes Secondary to history methamphetamine, cocaine, alcohol use History of alcohol abuse History of cocaine, methamphetamine abuse Hyperreflexia secondary to multiple strokes Right upper extremity DVT Assessment/Plan Monitoring Supportive treatment ICU care Stabilize vitals Respiratory support/vent management Blood culture Follow-up labs IV antibiotics TPN Quit tobacco smoking No more alcohol, street drug abuse Stroke risk factors discussed GI on case Infectious disease on case Pulmonology on case Hematology on case Nephrology on case More recommended per clinical course This medical document was created using an electronic medical record system with [employer] dictation system. Although this document has been carefully reviewed, there may still be some phonetic and typographical errors. These areas are purely typographical due to imperfections of the software programs, and do not reflect any compromise in the patient's medical care. Prognosis poor Dietary Evaluation Review Comments: 1. Continue TPN to meet at least 75% estimated needs 2. Continue current POC Expected Outcomes/Goals: FU 2-3 days to meet adequate energy & protein within 7 days of NPO Protein Calorie Malnutrition: Severe (rn) Plan discussed with: Other CC Plasma Assessment Blood Product Administration S: [id number] LEANDRO BLACK MD Nov 10, 2024 08:45
--- NOTE | 2024-11-10 09:03 | DVHPN2 ---
Subjective Patient continues to be encephalopathic. Following some commands Reviewed: Care Plan, H&P, Labs, Medications, Previous Orders, Radiology, Other (Consultants) Changes from previous H/P or p: No Changes General: Per HPI Objective Vitals Vital Signs Date Time Temp Pulse Resp B/P (MAP) Pulse Ox O2 Delivery O2 Flow Rate FiO2 11/10/24 08:08 101.5 11/10/24 08:00 152 18 92 Mechanical Ventilator+ 18 30 30 11/10/24 06:35 133/71 (91) Intake/Output Intake and Output 11/10/24 07:00 Intake Total 2745 ml Output Total 1491 ml Balance 1254 ml Intake Oral 500 ml IV Total 1930 ml Tube Feeding 315 ml Output Urine Total 1200 ml Stool Total 1 ml Drainage Total 290 ml General Appearance: Alert, Oriented X3, Cooperative, mild distress, Other (Intubated and sedated) HEENT: Atraumatic, PERRLA Lungs: Clear to auscultation, Normal air movement, Other (Mechanical ventilation. Decreased breath sounds at bases) Cardiovascular: Normal S1, Normal S2, Other (Sinus tachycardia) Abdomen: Other (NG with bilious drainage now) Extremities: Normal pulses Neuro: Other (Unable to assess) Skin: Dry, Intact, Wounds (Abdominal wound dry and intact), Other Psych/Mental Status: Other Medications Current Medications Medications Dose Ordered Sig/Wally Route Start Time Stop Time Status Last Admin Dose Admin Ondansetron HCl 4 mg Q4HP PRN IV 10/04/24 11:45 Morphine Sulfate 2 mg Q4HPRN PRN IV 10/04/24 11:45 Cancel Nitroglycerin 0.4 mg Q5MINP PRN SL 10/04/24 11:45 Morphine Sulfate 2 mg Q30M PRN IV 10/04/24 11:45 Cancel Lorazepam 50 mg/ Sodium Chloride 50 ml @ 1 mls/hr Q24H IV 10/04/24 18:15 Cancel Amino Acids 0 ml @ 0 mls/hr PER PHARMACY IV 10/05/24 14:30 UNV Diagnostic Test (Pha) 1 strip Q6HR 10/05/24 18:00 11/10/24 06:01 1 STRIP Insulin Human Regular FOLLOW SLIDING SCALE Q6HR SC 10/05/24 18:00 11/03/24 17:23 2 UNITS Dextrose 50 ml UD IV 10/05/24 14:45 Meropenem 50 ml @ 17 mls/hr Q12HR IV 10/07/24 10:00 UNV Labetalol HCl 10 mg Q2HPRN PRN IV 10/08/24 09:30 11/09/24 19:40 10 MG Levalbuterol HCl 0.625 mg Q6HR NEB 10/13/24 12:00 11/10/24 06:35 0.625 MG Ipratropium [place] 0.5 mg Q6HR NEB 10/13/24 12:00 11/10/24 06:35 0.5 MG Norepinephrine Bitartrate 32 mg/ Sodium Chloride 250 ml @ 0.938 mls/ hr Q24H IV 10/14/24 10:15 10/30/24 21:15 0.938 MLS/HR Morphine Sulfate 2 mg Q4HPRN PRN IV 10/21/24 11:30 11/10/24 05:15 2 MG Nicardipine/ Sodium Chloride 200 ml @ 50 mls/hr Q4H IV 10/22/24 08:45 10/30/24 15:34 75 MLS/HR Acetaminophen 650 mg Q6HP PRN GT 10/22/24 09:00 11/10/24 08:08 650 MG Metoprolol Tartrate 1.25 mg Q6HPRN PRN IV 10/27/24 09:45 10/31/24 12:17 1.25 MG Sucralfate 1 gm BID@0600,2200 GT 10/28/24 22:00 11/10/24 05:59 1 GM Pantoprazole Sodium 50 ml @ 0 mls/hr Q0M IV 10/28/24 16:15 Cancel Midazolam HCl 1 mg Q2HP PRN IV 10/30/24 16:45 11/03/24 15:29 1 MG Epoetin Roger-epbx 10,000 unit MWF@2100 SC 10/31/24 21:00 11/05/24 20:30 10,000 UNIT Sodium Chloride 10 ml QSHIFT@ IV 10/31/24 22:00 11/09/24 22:07 10 ML Pantoprazole Sodium 80 mg BID IV 10/31/24 22:00 11/09/24 22:06 80 MG Micafungin Sodium 100 mg/Sodium Chloride 100 ml @ 100 mls/hr DAILY IV 11/02/24 10:00 11/09/24 07:21 100 MLS/HR Meropenem 50 ml @ 17 mls/hr Q12HR IV 11/03/24 22:00 11/09/24 22:07 17 MLS/HR Acetaminophen/ Hydrocodone Bitart 1 tab Q4HPRN PRN PO 11/06/24 09:15 Enteral Nutritional Formula 1,000 ml 50ML/HR GT 11/06/24 09:30 Sodium Chloride 1,000 ml @ 70 mls/hr [id number] IV 11/08/24 11:30 11/09/24 17:30 70 MLS/HR Metoprolol Tartrate 50 mg BID GT 11/10/24 10:00 UNV Laboratory Results Laboratory Tests 11/10/24 02:50 Chemistry Test 11/09/24 15:25 11/10/24 02:50 Magnesium Level 2.2 mg/dL (1.6-2.6) 2.0 mg/dL (1.6-2.6) Albumin 2.8 g/dL (3.2-4.8) L Calcium Level 8.0 mg/dL (8.7-10.4) L Total Protein 6.9 g/dL (5.7-8.2) LFT Test 11/10/24 02:50 Alanine Aminotransferase (ALT) 28 U/L (7-40) Alkaline Phosphatase 250 U/L (46-116) H Aspartate Amino Transferase (AST) 28 U/L (<34) Total Bilirubin 1.3 mg/dL (0.2-1.0) H Urinalysis Test 10/05/24 15:05 10/26/24 20:33 11/07/24 12:40 Urine Mucus Few (None Seen) Urine Color Light-yellow (Yellow) Urine Clarity Clear (Clear) Urine pH 7.0 (5.0-9.0) Urine Specific [place] 1.014 (1.001-1.035) Urine Protein 1+ (Negative) H Urine Ketones Negative (Negative) Urine Blood 1+ /uL (Negative) H Urine Nitrite Negative (Negative) Urine Bilirubin Negative (Negative) Urine Urobilinogen Normal mg/dL (Negative) Urine Leukocyte Esterase Negative /uL (Negative) Urine RBC 1 /hpf (0 - 3) Urine Microscopic WBC 3 /HPF (0-3) Urine Squamous Epithelial Cells None seen /hpf (<5) Urine Bacteria Few /hpf (None Seen) H Urine Glucose Normal mg/dL (Normal) Urine Creatinine 64.63 mg/dL (30.0-125.0) Urine Protein/Creatinine Ratio 3.11 Urine Sodium 34 mmol/L (40-220) L Urine Total Protein 200.7 mg/dL (1-14) H Microbiology Microbiology Date/Time Source Procedure Growth Status 11/07/24 09:52 Blood Blood Culture - Preliminary Resulted 10/31/24 21:00 Voided Urine Urine Culture - Final Complete 10/18/24 09:21 Pleural Fluid Gram Stain - Final Complete 10/18/24 09:21 Pleural Fluid Body Fluid Culture - Final Complete 10/16/24 12:05 Bronchial Washings Gram Stain - Final Complete 10/16/24 12:05 Bronchial Washings Respiratory Culture - Final Complete 10/04/24 17:10 Nose MRSA Screen - Final Complete Labs and/or images reviewed: Labs reviewed by me, Image(s) reviewed by me Assessment/Plan Assessment/Plan Impression: -severe septic shock -pneumoperitoneum secondary to perforated gastric ulcer -acute kidney injury, hemodynamically mediated, probable VMN -acute hypoxic respiratory failure -shock liver -nicotine dependence -history of CVA -right upper extremity DVT -multifocal pneumonia, probable Gram-positive/Gram-negative etiology -anemia secondary to nutrition, renal failure -bilateral pleural effusions -small left pneumothorax -Failure of ventilator weaning, status post tracheostomy -fungemia Plan: Events: Patient has persistent intermittent fevers. ID consult pending. CXR with pulmonary vascular congestion- IV bumex. Worsening anemia. 1 unit PRBC. Please hold NSAIDS -Surgical consult for Cholecystectomy -GI consultation: Discussed case. -increase tube feeding to 50 mL/hour as tolerated -increase metoprolol tartrate to 50 mg p.o. b.i.d. -antibiotic therapy: Meropenem, micafungin -nephrology consultation: Daily assessment for hemodialysis -repeat labs, chest x-ray, ABG in a.m. Critical care time spent with patient discussing and formulating plan of care: 40 minutes. This does not include time spent performing procedures. This medical document was created using an electronic medical record system with [employer] system. Although this document has been carefully reviewed, there may still be some phonetic and typographical errors. These areas are purely typographical due to imperfections of the software programs, and do not reflect any compromise in the patient's medical care. Plan discussed with: Patient, Other (RN) My Orders Orders - CHEYENNE PIKE NP Procedure Category Date Status Time Insert Midline ORDERS 11/09/24 Transmitted 16:37 Rt Upper Dvt US 11/09/24 Resulted 16:37 Metoprolol Tartrate PHA 11/10/24 Logged Tablet (Lopressor Ta 10:00 Communication Order ORDERS 11/10/24 Transmitted 08:13 Communication Order ORDERS 11/10/24 Transmitted 08:13 Communication Order ORDERS 11/10/24 Transmitted 08:13 Basic Metabolic Panel LAB 11/11/24 Verified 04:00 Complete Blood Count LAB 11/11/24 Verified 04:[address] 11/10/24 Transmitted 08:33 Bumetanide Injection PHA 11/10/24 Logged (Bumex Injection) 08:45 Date of Service: Nov 10, 2024 Billing Provider: CHEYENNE PIKE NP Common Visit Codes: [id number] CARE 30-74 MIN CHEYENNE PIKE NP Nov 10, 2024 09:02
[2024-11-10] MEDS: METOPROLOL TARTRATE 25 MG TAB GT SCH (09:23)
[2024-11-10] MEDS: BUMETANIDE 1mg/4ml VIAL (0.25mg/ml) IV ONE (09:25)
--- NOTE | 2024-11-10 11:27 | DVHPN2 ---
Progress Note Date Seen: Nov 10, 2024 Medical Necessity Reason Pt with a Central, PICC or Fol: No The following are medically ne: Central Line, Gómez Catheter Reason for gómez catheter: Strict I&O Subjective Patient reports: No new complaints Other Systems: Patient seen and examined by myself today in follow-up Objective vital signs Vital Sign Date Time Temp Pulse Resp B/P (MAP) Pulse Ox O2 Delivery O2 Flow Rate FiO2 11/10/24 11:20 112 192/99 11/10/24 11:00 24 98 11/10/24 09:45 97.8 97.8 11/10/24 09:27 Trach Collar 8 30 30 Total Intake and Output 11/09/24 11/09/24 11/10/24 15:00 23:00 07:00 Intake Total 810 ml 1080 ml 925 ml Output Total 641 ml 850 ml Balance 810 ml 439 ml 75 ml medications Current Medications Medications Dose Ordered Sig/Wally Route Start Time Stop Time Status Last Admin Dose Admin Ondansetron HCl 4 mg Q4HP PRN IV 10/04/24 11:45 Morphine Sulfate 2 mg Q4HPRN PRN IV 10/04/24 11:45 Cancel Nitroglycerin 0.4 mg Q5MINP PRN SL 10/04/24 11:45 Morphine Sulfate 2 mg Q30M PRN IV 10/04/24 11:45 Cancel Lorazepam 50 mg/ Sodium Chloride 50 ml @ 1 mls/hr Q24H IV 10/04/24 18:15 Cancel Amino Acids 0 ml @ 0 mls/hr PER PHARMACY IV 10/05/24 14:30 UNV Diagnostic Test (Pha) 1 strip Q6HR 10/05/24 18:00 11/10/24 11:20 1 STRIP Insulin Human Regular FOLLOW SLIDING SCALE Q6HR SC 10/05/24 18:00 11/03/24 17:23 2 UNITS Dextrose 50 ml UD IV 10/05/24 14:45 Meropenem 50 ml @ 17 mls/hr Q12HR IV 10/07/24 10:00 UNV Labetalol HCl 10 mg Q2HPRN PRN IV 10/08/24 09:30 11/09/24 19:40 10 MG Levalbuterol HCl 0.625 mg Q6HR NEB 10/13/24 12:00 11/10/24 06:35 0.625 MG Ipratropium [place] 0.5 mg Q6HR NEB 10/13/24 12:00 11/10/24 06:35 0.5 MG Morphine Sulfate 2 mg Q4HPRN PRN IV 10/21/24 11:30 11/10/24 05:15 2 MG Nicardipine/ Sodium Chloride 200 ml @ 50 mls/hr Q4H IV 10/22/24 08:45 10/30/24 15:34 75 MLS/HR Acetaminophen 650 mg Q6HP PRN GT 10/22/24 09:00 11/10/24 08:08 650 MG Metoprolol Tartrate 1.25 mg Q6HPRN PRN IV 10/27/24 09:45 11/10/24 11:20 1.25 MG Sucralfate 1 gm BID@0600,2200 GT 10/28/24 22:00 11/10/24 05:59 1 GM Pantoprazole Sodium 50 ml @ 0 mls/hr Q0M IV 10/28/24 16:15 Cancel Midazolam HCl 1 mg Q2HP PRN IV 10/30/24 16:45 11/03/24 15:29 1 MG Epoetin Roger-epbx 10,000 unit MWF@2100 SC 10/31/24 21:00 11/05/24 20:30 10,000 UNIT Sodium Chloride 10 ml QSHIFT@10,22 IV 10/31/24 22:00 11/09/24 22:07 10 ML Pantoprazole Sodium 80 mg BID IV 10/31/24 22:00 11/10/24 09:22 80 MG Micafungin Sodium 100 mg/Sodium Chloride 100 ml @ 100 mls/hr DAILY IV 11/02/24 10:00 11/09/24 07:21 100 MLS/HR Meropenem 50 ml @ 17 mls/hr Q12HR IV 11/03/24 22:00 11/09/24 22:07 17 MLS/HR Acetaminophen/ Hydrocodone Bitart 1 tab Q4HPRN PRN PO 11/06/24 09:15 Enteral Nutritional Formula 1,000 ml 50ML/HR GT 11/06/24 09:30 Sodium Chloride 1,000 ml @ 70 mls/hr [id number] IV 11/08/24 11:30 11/09/24 17:30 70 MLS/HR Metoprolol Tartrate 50 mg BID GT 11/10/24 10:00 11/10/24 09:23 50 MG Examination: LUNGS:Normal, CVS:Normal, MSK:Normal laboratory and microbiology Laboratory Tests 11/10/24 02:50 Test 11/10/24 02:50 Range/Units Serum Glucose 100 74-106 mg/dL Microbiology Date/Time Source Procedure Growth Status 11/07/24 09:52 Blood Blood Culture - Preliminary Resulted 10/31/24 21:00 Voided Urine Urine Culture - Final Complete 10/18/24 09:21 Pleural Fluid Gram Stain - Final Complete 10/18/24 09:21 Pleural Fluid Body Fluid Culture - Final Complete 10/16/24 12:05 Bronchial Washings Gram Stain - Final Complete 10/16/24 12:05 Bronchial Washings Respiratory Culture - Final Complete 10/04/24 17:10 Nose MRSA Screen - Final Complete Problem List/Assessment/Plan Problem List/Assessment/Plan Assessment/Plan Acute kidney injury likely ATN, FeNa ,> 2% requiring intermittent hemodialysis Acute respiratory failure, patient intubated on ventilator Hemodynamic shock acute blood loss anemia Perforated gastric ulcer status post surgery 10/04 Hyponatremia likely due to volume overload Pneumonia Sepsis Hypomagnesemia Hypokalemia Hypertensive urgency Empyema status post right chest tube Acute blood loss anemia status post PRBC Recommendations Kidney function continues to improve off hemodialysis Increased urine output Hyponatremia appropriately resolved Patient receiving packed red blood cells transfusion Gómez catheter Strict I&Os DC vancomycin DC ibuprofen ID consult KCL replacement We will continue to follow Plan discussed with: Patient, Other (Nurse) My Orders My Orders Orders - MILADY ANDERSON MD Procedure Category Date Status Time Communication Order ORDERS 11/09/24 Transmitted 12:17 Dietary Evaluation Review Comments: 1. Continue TPN to meet at least 75% estimated needs 2. Continue current POC Expected Outcomes/Goals: FU 2-3 days to meet adequate energy & protein within 7 days of NPO Protein Calorie Malnutrition: Severe (rn) CC Plasma Assessment Blood Product Administration S: [id number] MILADY ANDERSON MD Nov 10, 2024 11:27
--- NOTE | 2024-11-10 15:13 | DVHCONRES ---
Date Seen: Nov 10, 2024 Resident Creating Document: SILAS STAHL RESIDENT Referring Physician Junito Reason for Consultation Persistent fungemia History of Present Illness This is a 48-year-old male with past medical history of CVA last year, hypertension and emphysema. The patient presented to the ED brought by his family because of altered level of consciousness, before admission, the patient was complaining of constipation for the past several days. Upon admission, the patient was found severely hypotensive, hyponatremic and severely anemic. The patient received multiple units of packed red blood cells and was intubated. Initial CT of the abdomen and pelvis showed perforated viscus and surgery was consulted. Surgery performed exploratory laparotomy where it was found a peptic ulcer perforation at the level of the pylorus of about 6 cm. Surgical correction of perforated viscus was performed and three catheters were placed at that time. The patient was moved to the ICU, vasopressors were started at that time as well as IV antibiotics. Up following liver ultrasound showed gallbladder wall thickening with pericholecystic edema with possible acute cholecystitis. Surgery was consulted and due to hemodynamic instability at that time, recommendation was to place a cholecystostomy tube for drainage which was placed by IR. During hospitalization stay the patient developed multifocal pneumonia on bilateral lung bases with significant pleural effusions that were larger in the right side compared to the left. Chest tube placement was performed in the right lung with drainage of pleural fluid. Hospitalization stay, the three abdominal/pelvic catheters were removed as well as the chest tube after no longer was needed. The patient currently has right-sided cholecystostomy tube in place draining approximately 80 cc in the last 12 hours. Due to prolonged days of intubation patient had a tracheostomy tube placed on 10/27/2024. Initial blood cultures were negative, urine culture were negative, bile cultures were negative, respiratory cultures were negative, pleural fluid cultures were negative. Last blood cultures performed on 10/31/2024 showed Milady albicans x2. The patient was started on IV micafungin and continued IV meropenem. Last blood cultures performed on 11/07/2024 showed in the Gram stain budding yeast but no growth in the culture so far. Patient has been on IV meropenem and IV micafungin since then. Infectious Disease was consulted due to persistent fungemia. Past Medical History CVA, emphysema, primary hypertension Past Surgical History Knee surgery Family History: Alcoholism G8 MOTHER Cardiovascular disease G8 MOTHER G8 FATHER FH: heart disease FH: lung cancer Hypertension G8 MOTHER Family History Noncontributory Social History Long history of tobacco and alcohol use but no IV drug use Allergies: Coded Allergies: NO KNOWN ALLERGIES (Unverified , 08/22/23) Home Meds Active Scripts Nifedipine (Nifedipine Er) 30 Mg Tab, 30 MG PO BID for 30 Days, #60 TAB 6 Refills Prov:JASE HALE DO 08/25/23 Atorvastatin Calcium (ATORVASTATIN CALCIUM) 20 Mg Tab, 20 MG PO HS for 30 Days, #30 TAB 6 Refills Prov:JASE HALE DO 08/25/23 Aspirin (Aspir-Low) 81 Mg Tab, 81 MG PO DAILY for 30 Days, #30 TAB 1 Refill Prov:JASE HALE DO 08/25/23 Reported Medications Lisinopril (Lisinopril) 20 Mg Tab, 1 TAB PO DAILY for 90 Days, #90 10/06/24 Escitalopram Oxalate (ESCITALOPRAM OXALATE) 10 Mg Tab, 1 TAB PO DAILY for 30 Days, #30 10/06/24 Current Medications Current Medications Medications (Trade) Dose Ordered Sig/Wally Route PRN Reason Start Time Stop Time Status Last Admin Metoprolol Tartrate (Lopressor Tablet) 50 mg BID GT 11/10/24 10:00 11/10/24 09:23 Review of Systems ROS unable to obtain due to current tracheostomy tube, patient not able to communicate effectively. Vital Signs Vital Signs Date Time Temp Pulse Resp B/P (MAP) Pulse Ox O2 Delivery O2 Flow Rate FiO2 11/10/24 14:08 109 192/94 11/10/24 14:00 30 100 11/10/24 14:00 Trach Collar 8 30 30 11/10/24 12:15 98.2 98.2 Physical Exam Physical Examination General: Patient is alert and oriented but unable to speak and communicate properly due to tracheostomy tube. HEENT: Normocephalic, atraumatic, moist mucous membranes. Tracheostomy tube in place Respiratory/pulmonary: Bilateral lung sounds grossly clear, no significant evidence of crackles or wheezing at this time. Currently on tracheostomy tube at 8 L of oxygen with an FiO2 of 30% Cardiovascular: Normal heart sounds S1 and S2 with no associated murmurs Abdomen: There is no abdominal distention or masses palpable at this time. There is a central incision were exploratory laparotomy was performed. There is a right-sided cholecystostomy tube placed which is draining approximately 80 cc in the last 12 hours. There is also a visible petechial rash present in the lower abdomen extending up to the chest. Extremities: There is no peripheral edema present at the lower extremities. Skin: There is a skin rash in the lower abdomen extending up to the upper chest without lower extremities or upper extremity compromise. Neurological: Intact cranial nerves with no focal neurologic deficits Labs/Diagnostic Data Labs Test 11/10/24 11:22 11/10/24 02:50 11/09/24 02:50 11/07/24 12:40 Range/Units POC Glucose 103 70-106 mg/dl White Blood Count 15.7 H 4.4-10.8 10^3/uL Red Blood Count 2.31 L 4.5-5.90 10^6/uL Hemoglobin 6.6 #*L 13.5-17.5 g/dL Hematocrit 20.3 #L 41.0-53.0 % Mean Corpuscular Volume 87.7 80.0-100.0 fL Mean Corpuscular Hemoglobin 28.7 28.0-32.0 pg Mean Corpuscular Hemoglobin Concent 32.8 32.0-36.0 g/dL Red Cell Distribution Width 18.7 H 11.8-14.3 % Platelet Count 513 H 140-450 10^3/uL Mean Platelet Volume 7.5 6.9-10.8 fL Neutrophils (%) (Auto) 84.0 H 37.0-80.0 % Lymphocytes (%) (Auto) 8.9 L 10.0-50.0 % Monocytes (%) (Auto) 4.5 0.0-12.0 % Eosinophils (%) (Auto) 1.6 0.0-7.0 % Basophils (%) (Auto) 1.0 0.0-2.0 % Neutrophils # (Auto) 13.1 H 1.6-8.6 10 ^3/uL Lymphocytes # (Auto) 1.4 0.4-5.4 10 ^3/uL Monocytes # (Auto) 0.7 0-1.3 10 ^3/uL Eosinophils # (Auto) 0.3 0-0.8 10 ^3/uL Basophils # (Auto) 0.2 0-0.2 10 ^3/uL Nucleated Red Blood Cells 0.0 % Sodium Level 145 136-145 mmol/L Potassium Level 3.7 3.5-5.1 mmol/L Chloride Level 113 H 98-107 mmol/L Carbon Dioxide Level 19 L 20-31 mmol/L Anion Gap 13 5-15 Blood Urea Nitrogen 60 H 9-23 mg/dL Creatinine 2.82 H 0.700-1.30 mg/dL Glomerular Filtration Rate Calc 26 >90 mL/min BUN/Creatinine Ratio 21.3 H 10.0-20.0 Serum Glucose 100 74-106 mg/dL Calcium Level 8.0 L 8.7-10.4 mg/dL Magnesium Level 2.0 1.6-2.6 mg/dL Total Bilirubin 1.3 H 0.2-1.0 mg/dL Aspartate Amino Transferase (AST) 28 <34 U/L Alanine Aminotransferase (ALT) 28 7-40 U/L Alkaline Phosphatase 250 H 46-116 U/L Total Protein 6.9 5.7-8.2 g/dL Albumin 2.8 L 3.2-4.8 g/dL Platelet Estimate Increased Polychromasia Slight Anisocytosis (manual) Slight Direct Bilirubin 0.8 H <0.3 mg/dL Urine Creatinine 64.63 30.0-125.0 mg/dL Urine Protein/Creatinine Ratio 3.11 Urine Sodium 34 L 40-220 mmol/L Urine Total Protein 200.7 H 1-14 mg/dL Test 11/07/24 09:52 11/07/24 08:01 11/07/24 03:08 11/06/24 08:29 Range/Units Prothrombin Time 12.3 H 9.3-11.8 sec Prothrombin Time INR 1.18 H 0.9-1.15 Activated Partial Thromboplast Time 32.6 24.5-34.5 SEC Blood Gas Specimen Type Arterial Blood Gas Sample Site Left radial Blood Gas Patient Temperature 37.0 Arterial Blood Date Drawn [id number] Arterial Blood pH 7.478 H 7.350-7.450 Arterial Blood Partial Pressure CO2 27.0 L 35.0-48.0 mmHg Arterial Blood Partial Pressure O2 101.6 83.0-108.0 mmHg Arterial Blood HCO3 19.6 L 21.0-28.0 mmol/L Arterial Blood Oxygen Saturation 97.5 94.0-98.0 % Arterial Blood Base Excess -3.3 L -2.0-3.0 mmol/L Arterial Blood Oxyhemoglobin 96.7 94.0-98.0 % Arterial Blood Carboxyhemoglobin 0.3 L 0.5-1.5 % Arterial Blood Methemoglobin 0.5 0.0-1.5 % Ke Test Modified Blood Gas Total Hemoglobin 8.30 L 13.5-17.5 g/dL Blood Gas Set Respiration Rate 18.0 Blood Gas Modality Vent - ac FiO2 % 30.0 Blood Gas Tidal Volume 550.0 Blood Gas PEEP or CPAP 5.0 Differential Total Cells Counted 100.0 100 Neutrophils % (Manual) 73 37.0-80.0 Band Neutrophils % (Manual) 1 Lymphocytes % (Manual) 15 10.0-50.0 Monocytes % (Manual) 8 0-12 Eosinophils % (Manual) 0 0-7 Basophils % (Manual) 0 0.0-2.0 Metamyelocytes % (manual) 1 Myelocytes % (Manual) 0 Promyelocytes % (Manual) 0 Blast Cells % (Manual) 2 Reactive Lymphocytes 0 Phosphorus Level 4.2 2.4-5.1 mg/dL Random Vancomycin Level 13.1 H 5-10 ug/mL Blood Gas Pressure Support 8 Test 10/29/24 03:00 10/28/24 12:26 10/26/24 20:33 10/26/24 03:20 Range/Units Triglycerides Level 114 < 150 mg/dL Stool Occult Blood Positive x1 Negative Stool Occult Blood Sample #3 Negative Urine Color Light-yellow Yellow Urine Clarity Clear Clear Urine pH 7.0 5.0-9.0 Urine Specific [place] 1.014 1.001-1.035 Urine Protein 1+ H Negative Urine Ketones Negative Negative Urine Blood 1+ H Negative /uL Urine Nitrite Negative Negative Urine Bilirubin Negative Negative Urine Urobilinogen Normal Negative mg/dL Urine Leukocyte Esterase Negative Negative /uL Urine RBC 1 0 - 3 /hpf Urine Microscopic WBC 3 0-3 /HPF Urine Squamous Epithelial Cells None seen <5 /hpf Urine Bacteria Few H None Seen /hpf Urine Glucose Normal Normal mg/dL Macrocytosis Slight Ovalocytes Few Test 10/24/24 03:19 10/23/24 02:45 10/20/24 03:23 10/20/24 03:22 Range/Units Large Platelets Few Giant Platelets Few Stomatocytes Moderate Clumped Platelets Few Smudge Cells 1 /100 WBC Iron Level 28 L 65-175 ug/dL Total Iron Binding Capacity 175 L 250-425 ug/dL Percent Iron Saturation 16.0 L 20-55 % Ferritin 728.9 H 22-322 ng/mL Test 10/18/24 09:21 10/17/24 10:02 10/16/24 06:34 10/14/24 11:50 Range/Units Body Fluid Glucose 74 . mg/dL Body Fluid Total Protein 3.2 . g/dL Body Fluid Lactate Dehydrogenase 881 . IU/L Hepatitis A IgM Antibody Negative Hepatitis B Surface Antigen Negative Negative Hepatitis B Core IgM Antibody Negative Negative Hepatitis C Antibody Negative Negative Blood Gas Critical Value Read Back Yes Blood Gas Notified Whom Rolanda stanley np Blood Gas Notified Time [id number] Blood Gas Notified By surfacing technician larissa ching Body Fluid Source Pleural fluid Body Fluid pH 8.0 Body Fluid WBC (Manual) 1303 H 0-200 CUMM Body Fluid RBC (Manual) 60094 H 0-2000 CUMM Body Fluid Mononuclear Cells 5 % Body Fluid Polymorphonuclear Cells 95 H 0-25 % Test 10/13/24 04:00 10/12/24 02:27 10/11/24 07:55 10/10/24 03:15 Range/Units B-Type Natriuretic Peptide 93.62 0-100 pg/mL Ammonia < 10 L 11-32 umol/L Lipase 58 H 12-53 U/L Blood Gas Spontaneous Rate 30 Lactic Acid Level 0.8 0.4-2.0 mmol/L Test 10/08/24 06:46 10/07/24 03:10 10/05/24 15:05 10/05/24 03:46 Range/Units Specimen Drawn By Marta aultman [facility] Phospholipids Level 106 L 127-261 mg/dL Urine Mucus Few None Seen Urine Opiates Screen Neg NEGATIVE Urine Fentanyl Screen Pos NEGATIVE Urine Barbiturates Screen Neg NEGATIVE Urine Phencyclidine Screen Neg NEGATIVE Urine Amphetamines Screen Neg NEGATIVE Urine Benzodiazepines Screen Pos NEGATIVE Urine Cocaine Screen Neg NEGATIVE Urine Cannabinoids Screen Neg NEGATIVE [place] Cells Moderate Test 10/04/24 17:00 10/04/24 08:05 10/04/24 07:01 Range/Units Microcytosis Slight Reticulocyte Count (auto) 5.51 H 0.5-1.5 % Hemoglobin A1c 5.6 <5.7 % A1C Troponin I High Sensitivity 359 *H </=54 ng/L Red Blood Cell Morphology Normal Microbiology Date/Time Source Procedure Growth Status 11/07/24 09:52 Blood Blood Culture - Preliminary Resulted 10/31/24 21:00 Voided Urine Urine Culture - Final Complete 10/18/24 09:21 Pleural Fluid Gram Stain - Final Complete 10/18/24 09:21 Pleural Fluid Body Fluid Culture - Final Complete 10/16/24 12:05 Bronchial Washings Gram Stain - Final Complete 10/16/24 12:05 Bronchial Washings Respiratory Culture - Final Complete 10/04/24 17:10 Nose MRSA Screen - Final Complete Assessment Assessment/plan Septic shock due to perforated peptic ulcer at the level of the pylorus Status post exploratory laparotomy with repair of large perforated pyloric ulcer GIOVANI due to vasomotor nephropathy likely due to septic shock NSTEMI type 2 likely due to above Severe anemia, possible lower GI bleed Bilateral Multifocal pneumonia Large right-sided pleural effusion, status post chest tube drainage Acute cholecystitis, status post cholecystostomy tube placement Status post tracheostomy Acute fungemia Plan -patient still has intermittent fevers, last fever overnight. -worsening anemia, today hemoglobin was 6.6. 1 unit of red blood cells was transfused. Repeat hemoglobin and hematocrit. Repeat stool occult blood test. -last CT of the abdomen and pelvis, showed contrast passing through the stomach all the way to the intestines. No evidence of free contrast. -surgical consult was placed for possible cholecystectomy -continue IV meropenem and IV micafungin -blood cultures on 10/31/2024 showed growing Milady albicans X2. Last blood cultures on 11/07/2024 showed Gram stain growing budding yeast but no growth in the cultures this point. -we will wait for final reports of blood cultures. -patient is currently on 8 L of oxygen through tracheostomy tube at FiO2 of 30% saturating 100%. -patient is developing small rash in the lower part of the abdomen extending to the upper chest, there is no compromise of upper or lower extremities. Assess for any worsening symptoms of the rash. -all central lines and Devin catheters were removed. Patient is currently on a midline in the left upper arm that was placed yesterday on 11/09/2024 -recommend to exchange Barrios catheter and perform urine cultures after that -repeat blood cultures -ordered echocardiogram -avoid TPN and steroids Goals of care were discussed with the at bedside and with the patient for >45min, FULL CODE Plan discussed with Dr. Woodard -----Addendum Dr. Jessica Woodard Patient is a 48 year old male with a past medical history of stroke , hypertension , emphysema. patient was brought in by family due to mental status . Patient was having constipation for several days prior to admission . CT abdomen and pelvis showed a perforated viscus and surgery was consulted . Xlab was done , patient was found to have pepticles for perforation at levels of pylori of about 6 cm . Surgical corrected was performed . 3 catheters were placed and patient was admitted to ICU and put on pressers and IV antibiotics. liver ultrasound showed gallbladder wall thickening and pericolic cystitis edema consistent with acute cholecystitis due to hemodynamic instability . percutaneous cholecystostomy was placed by IR rather than surgical drainage . patient developed multifocal pneumonia and covered by antibiotics and patient underwent thoracentesis as well as chest tube placement . chest tube has been removed , right sided cholecystostomy tube remains in place . patient was trachea on october 27 2024 . Infectious disease was consulted due to blood cultures being persistently positive for peña albakins . patient has been on micafungin and meropenem . Patient is febrile with a T-max of 103 , with worsening anemia . Hemoglobin is 6.6 and received a blood transfusion . Likely the etiology of persistent fungemia include line related as patient has a midline placed white patient was actively fungemic . Would also be concerned about untreated source of bowel leak . endocarditis also remains a small possibility as well Last Ct abdomen and pelvis was done with contrast and showed no evidence of bowel leak Plan : - recommend fuly exchange of the urine catheter - remove midline if able , other funes would repeat blood cultures and follow along to see if fungemia clears on its own - recommend TTE to ruleout endocarditis - avoid unnecessary TPN and steroid use Authorized and Performed by: Jessica Woodard Total critical care time: Approximately 76 minutes Due to a high probability of clinically significant, life threatening d eterioration, the patient required my highest level of preparedness to intervene emergently and I personally spent this critical care time directly and personally managing the patient. This critical care time included obtaining a history; examining the patient; pulse oximetry; ordering and review of studies; arranging urgent treatment with development of a management plan; evaluation of patient's response to treatment; frequent reassessment; and, discussions with other providers. This critical care time was performed to assess and manage the high probability of imminent, life-threatening deterioration that could result in multi-organ failure. It was exclusive of separately billable procedures and treating other patients and teaching time. Agree with assessment , plan , subjective , physical exam and other findings written above by Dr. MARLEY Plan discussed with: Patient, Spouse SILAS STAHL RESIDENT Nov 10, 2024 15:13 JESSICA WOODARD MD Nov 28, 2024 17:27
--- NOTE | 2024-11-10 16:12 | DVHPN2 ---
Progress Note Date Seen: Nov 10, 2024 Resident Creating Document: KWASI MILLAN Medical Necessity Reason Pt with a Central, PICC or Fol: No The following are medically ne: Central Line, Gómez Catheter Reason for gómez catheter: Strict I&O Subjective Review of Systems Patient was seen today at bedside in ICU Patient on trach collar Ongoing low-grade fever WBC trending down Hemoglobin today 6.6, status post 1 unit PCV Infectious disease on board Patient was seen by Nephrology Doppler study of right upper extremity review -Thrombus is seen in the cephalic vein in the forearm. Objective vital signs Vital Sign Date Time Temp Pulse Resp B/P (MAP) Pulse Ox O2 Delivery O2 Flow Rate FiO2 11/10/24 14:08 109 192/94 11/10/24 14:00 30 100 11/10/24 14:00 Trach Collar 8 30 30 11/10/24 12:15 98.2 98.2 Total Intake and Output 11/09/24 11/09/24 11/10/24 15:00 23:00 07:00 Intake Total 810 ml 1080 ml 925 ml Output Total 641 ml 850 ml Balance 810 ml 439 ml 75 ml medications Current Medications Medications Dose Ordered Sig/Wally Route Start Time Stop Time Status Last Admin Dose Admin Ondansetron HCl 4 mg Q4HP PRN IV 10/04/24 11:45 Morphine Sulfate 2 mg Q4HPRN PRN IV 10/04/24 11:45 Cancel Nitroglycerin 0.4 mg Q5MINP PRN SL 10/04/24 11:45 Morphine Sulfate 2 mg Q30M PRN IV 10/04/24 11:45 Cancel Lorazepam 50 mg/ Sodium Chloride 50 ml @ 1 mls/hr Q24H IV 10/04/24 18:15 Cancel Amino Acids 0 ml @ 0 mls/hr PER PHARMACY IV 10/05/24 14:30 UNV Diagnostic Test (Pha) 1 strip Q6HR 10/05/24 18:00 11/10/24 11:20 1 STRIP Insulin Human Regular FOLLOW SLIDING SCALE Q6HR SC 10/05/24 18:00 11/03/24 17:23 2 UNITS Dextrose 50 ml UD IV 10/05/24 14:45 Meropenem 50 ml @ 17 mls/hr Q12HR IV 10/07/24 10:00 UNV Labetalol HCl 10 mg Q2HPRN PRN IV 10/08/24 09:30 11/10/24 14:08 10 MG Levalbuterol HCl 0.625 mg Q6HR NEB 10/13/24 12:00 11/10/24 11:58 0.625 MG Ipratropium Raven 0.5 mg Q6HR NEB 10/13/24 12:00 11/10/24 11:58 0.5 MG Morphine Sulfate 2 mg Q4HPRN PRN IV 10/21/24 11:30 11/10/24 05:15 2 MG Nicardipine/ Sodium Chloride 200 ml @ 50 mls/hr Q4H IV 10/22/24 08:45 10/30/24 15:34 75 MLS/HR Acetaminophen 650 mg Q6HP PRN GT 10/22/24 09:00 11/10/24 08:08 650 MG Metoprolol Tartrate 1.25 mg Q6HPRN PRN IV 10/27/24 09:45 11/10/24 11:20 1.25 MG Sucralfate 1 gm BID@0600,2200 GT 10/28/24 22:00 11/10/24 05:59 1 GM Pantoprazole Sodium 50 ml @ 0 mls/hr Q0M IV 10/28/24 16:15 Cancel Midazolam HCl 1 mg Q2HP PRN IV 10/30/24 16:45 11/03/24 15:29 1 MG Epoetin Roger-epbx 10,000 unit MWF@2100 SC 10/31/24 21:00 11/05/24 20:30 10,000 UNIT Sodium Chloride 10 ml QSHIFT@10,22 IV 10/31/24 22:00 11/10/24 10:00 10 ML Pantoprazole Sodium 80 mg BID IV 10/31/24 22:00 11/10/24 09:22 80 MG Micafungin Sodium 100 mg/Sodium Chloride 100 ml @ 100 mls/hr DAILY IV 11/02/24 10:00 11/10/24 12:11 100 MLS/HR Meropenem 50 ml @ 17 mls/hr Q12HR IV 11/03/24 22:00 11/10/24 13:46 17 MLS/HR Acetaminophen/ Hydrocodone Bitart 1 tab Q4HPRN PRN PO 11/06/24 09:15 Enteral Nutritional Formula 1,000 ml 50ML/HR GT 11/06/24 09:30 Sodium Chloride 1,000 ml @ 70 mls/hr [id number] IV 11/08/24 11:30 11/09/24 17:30 70 MLS/HR Metoprolol Tartrate 50 mg BID GT 11/10/24 10:00 11/10/24 09:23 50 MG laboratory and microbiology Laboratory Tests 11/10/24 02:50 Test 11/10/24 02:50 Range/Units Serum Glucose 100 74-106 mg/dL Microbiology Date/Time Source Procedure Growth Status 11/07/24 09:52 Blood Blood Culture - Preliminary Resulted 10/31/24 21:00 Voided Urine Urine Culture - Final Complete 10/18/24 09:21 Pleural Fluid Gram Stain - Final Complete 10/18/24 09:21 Pleural Fluid Body Fluid Culture - Final Complete 10/16/24 12:05 Bronchial Washings Gram Stain - Final Complete 10/16/24 12:05 Bronchial Washings Respiratory Culture - Final Complete 10/04/24 17:10 Nose MRSA Screen - Final Complete Problem List/Assessment/Plan Problem List/Assessment/Plan Assessment and plan (1) Cholecystitis (2) TIA (transient ischemic attack) (3) Altered mental status (4) Severe anemia (5) Perforated viscus (6) NSTEMI (non-ST elevated myocardial infarction) (7) GI bleed (8) Septic shock (9) Leukocytosis Events Patient on trach collar Ongoing low-grade fever WBC trending down Hemoglobin today 6.6, status post 1 unit PCV Infectious disease on board Patient was seen by Nephrology Doppler study of right upper extremity review -Thrombus is seen in the cephalic vein in the forearm. Rash on the torso and extremity, status post diphenhydramine and famotidine and methylprednisolone Plan Pending HIDA scan Surgery recommendation reviewed and appreciated Cholecystectomy as per surgical consult -as per surgery cholecystectomy can be timed after overall improvement Continue IV ppi Protonix Continue current antibiotic Plan discussed with Dr. Chanda Stoddard , nursing staff, Total time spent on patient evaluation, chart review, assessment and plan, discussion discussion >35 minutes Plan discussed with: Patient, Other (RN) Dietary Evaluation Review Comments: 1. Continue TPN to meet at least 75% estimated needs 2. Continue current POC Expected Outcomes/Goals: FU 2-3 days to meet adequate energy & protein within 7 days of NPO Protein Calorie Malnutrition: Severe (rn) CC Plasma Assessment Blood Product Administration S: [id number] KWASI MILLAN RESIDENT Nov 10, 2024 16:12
[2024-11-10] MEDS: methylPREDNISolone SOD SUCC 125 MG/2 ML VL IV ONE (17:11)
[2024-11-10] MEDS: FAMOTIDINE (10MG/ML) 2ML VL IV ONE (17:11)
[2024-11-10] MEDS: diphenhdrAMINE HCL 50 MG/1 ML VL IV ONE (17:11)
--- NOTE | 2024-11-10 18:52 | DVHPN2 ---
Progress Note - Dictate Date Seen: Nov 10, 2024 Medical Necessity Reason Pt with a Central, PICC or Fol: No The following are medically ne: Central Line, Gómez Catheter Reason for gómez catheter: Strict I&O vital signs Vital Sign Date Time Temp Pulse Resp B/P (MAP) Pulse Ox O2 Delivery O2 Flow Rate FiO2 11/10/24 18:23 98 T-piece 8 30 30 11/10/24 18:00 105 11/10/24 18:00 33 11/10/24 17:10 181/85 11/10/24 16:00 99.7 99.7 Total Intake and Output 11/09/24 11/09/24 11/10/24 15:00 23:00 07:00 Intake Total 810 ml 1080 ml 925 ml Output Total 641 ml 850 ml Balance 810 ml 439 ml 75 ml medications Current Medications Medications Dose Ordered Sig/Wally Route Start Time Stop Time Status Last Admin Dose Admin Ondansetron HCl 4 mg Q4HP PRN IV 10/04/24 11:45 Morphine Sulfate 2 mg Q4HPRN PRN IV 10/04/24 11:45 Cancel Nitroglycerin 0.4 mg Q5MINP PRN SL 10/04/24 11:45 Morphine Sulfate 2 mg Q30M PRN IV 10/04/24 11:45 Cancel Lorazepam 50 mg/ Sodium Chloride 50 ml @ 1 mls/hr Q24H IV 10/04/24 18:15 Cancel Amino Acids 0 ml @ 0 mls/hr PER PHARMACY IV 10/05/24 14:30 UNV Diagnostic Test (Pha) 1 strip Q6HR 10/05/24 18:00 11/10/24 17:12 1 STRIP Insulin Human Regular FOLLOW SLIDING SCALE Q6HR SC 10/05/24 18:00 11/03/24 17:23 2 UNITS Dextrose 50 ml UD IV 10/05/24 14:45 Meropenem 50 ml @ 17 mls/hr Q12HR IV 10/07/24 10:00 UNV Labetalol HCl 10 mg Q2HPRN PRN IV 10/08/24 09:30 11/10/24 17:10 10 MG Levalbuterol HCl 0.625 mg Q6HR NEB 10/13/24 12:00 11/10/24 18:23 0.625 MG Ipratropium [place] 0.5 mg Q6HR NEB 10/13/24 12:00 11/10/24 18:23 0.5 MG Morphine Sulfate 2 mg Q4HPRN PRN IV 10/21/24 11:30 11/10/24 05:15 2 MG Nicardipine/ Sodium Chloride 200 ml @ 50 mls/hr Q4H IV 10/22/24 08:45 10/30/24 15:34 75 MLS/HR Acetaminophen 650 mg Q6HP PRN GT 10/22/24 09:00 11/10/24 08:08 650 MG Metoprolol Tartrate 1.25 mg Q6HPRN PRN IV 10/27/24 09:45 11/10/24 11:20 1.25 MG Sucralfate 1 gm BID@0600,2200 GT 10/28/24 22:00 11/10/24 05:59 1 GM Pantoprazole Sodium 50 ml @ 0 mls/hr Q0M IV 10/28/24 16:15 Cancel Midazolam HCl 1 mg Q2HP PRN IV 10/30/24 16:45 11/03/24 15:29 1 MG Epoetin Roger-epbx 10,000 unit MWF@2100 SC 10/31/24 21:00 11/05/24 20:30 10,000 UNIT Sodium Chloride 10 ml QSHIFT@10,22 IV 10/31/24 22:00 11/10/24 10:00 10 ML Pantoprazole Sodium 80 mg BID IV 10/31/24 22:00 11/10/24 09:22 80 MG Micafungin Sodium 100 mg/Sodium Chloride 100 ml @ 100 mls/hr DAILY IV 11/02/24 10:00 11/10/24 12:11 100 MLS/HR Meropenem 50 ml @ 17 mls/hr Q12HR IV 11/03/24 22:00 11/10/24 13:46 17 MLS/HR Acetaminophen/ Hydrocodone Bitart 1 tab Q4HPRN PRN PO 11/06/24 09:15 Enteral Nutritional Formula 1,000 ml 50ML/HR GT 11/06/24 09:30 Sodium Chloride 1,000 ml @ 70 mls/hr [id number] IV 11/08/24 11:30 11/09/24 17:30 70 MLS/HR Metoprolol Tartrate 50 mg BID GT 11/10/24 10:00 11/10/24 09:23 50 MG laboratory and microbiology Laboratory Tests 11/10/24 02:50 Test 11/10/24 02:50 Range/Units Serum Glucose 100 74-106 mg/dL Assessment/Plan Impression Acute hypoxemic respiratory failure S/p tracheostomy Perforated viscus Septic shock Smoker Patient seen and examined in ICU Events S/p tracheostomy Tolerating trache collar No acute events Labs and imaging reviewed ABG reviewed Management Vent support as needed Titrate to maintain sats 90% or above Trache collar follow up with gen sx Continue antibiotics and antifungals F/u cultures Bronchodilators Monitor renal function Monitor electrolytes Supplement as needed HD per nephrology Nutritional support Tube feedings DVT prophylaxis Critical care time 35 minutes Dietary Evaluation Review Comments: 1. Continue TPN to meet at least 75% estimated needs 2. Continue current POC Expected Outcomes/Goals: FU 2-3 days to meet adequate energy & protein within 7 days of NPO Protein Calorie Malnutrition: Severe (rn) Plan discussed with: Other (Rn) CC Plasma Assessment Blood Product Administration S: [id number] VALENTE DEE MD Nov 10, 2024 18:52
[2024-11-10 20:07] LABS: Hematocrit 28.1 % (41.0-53.0); Hemoglobin 9.3 g/dL (13.5-17.5)
[2024-11-11] VITALS (50 sets, daily range): BP systolic 115–195; BP diastolic 59–118; PULSE 80–120; RESP 18–31; TEMP 98–99.2; O2SAT 92–100
[2024-11-11 03:45] LABS: Potassium 4.0 mmol/L (3.5-5.1)
[2024-11-11 03:46] LABS: Anion Gap 15 (5-15)
[2024-11-11 03:49] LABS: Hemoglobin 8.3 g/dL (13.5-17.5); Nucleated Red Blood Cells % 0.0 %
[2024-11-11 03:51] LABS: BUN/Creatinine Ratio 21.9 (10.0-20.0)
[2024-11-11 03:53] LABS: Hematocrit 25.2 % (41.0-53.0); Mean Corpuscular Hemoglobin 28.7 pg (28.0-32.0); Mean Corpuscular Volume 86.7 fL (80.0-100.0)
[2024-11-11 03:56] LABS: Blood Urea Nitrogen 56 mg/dL (9-23); Calcium 8.4 mg/dL (8.7-10.4); Carbon Dioxide 19 mmol/L (20-31); Chloride 113 mmol/L (98-107); Glucose 125 mg/dL (74-106); Sodium 147 mmol/L (136-145)
--- NOTE | 2024-11-11 09:27 | DVHPN2 ---
Subjective Patient continues to be encephalopathic. Following some commands Reviewed: Care Plan, H&P, Labs, Medications, Previous Orders, Radiology, Other (Consultants) Changes from previous H/P or p: No Changes General: Per HPI Objective Vitals Vital Signs Date Time Temp Pulse Resp B/P (MAP) Pulse Ox O2 Delivery O2 Flow Rate FiO2 11/11/24 08:13 111 195/96 11/11/24 08:00 24 100 Trach Collar 8 30 30 11/11/24 08:00 98.2 98.2 Intake/Output Intake and Output 11/11/24 07:00 Intake Total 2711 ml Output Total 3285 ml Balance -574 ml Intake Oral 30 ml IV Total 1756 ml Tube Feeding 393 ml Blood Product 250 ml Other 282 ml Output Urine Total 2965 ml Drainage Total 320 ml General Appearance: Alert, Oriented X3, Cooperative, mild distress, Other HEENT: Atraumatic, PERRLA Lungs: Clear to auscultation, Normal air movement, Other Cardiovascular: Normal S1, Normal S2, Other Abdomen: Other Extremities: Normal pulses Neuro: Other Skin: Dry, Intact, Wounds, Other Psych/Mental Status: Other Medications Current Medications Medications Dose Ordered Sig/Wally Route Start Time Stop Time Status Last Admin Dose Admin Ondansetron HCl 4 mg Q4HP PRN IV 10/04/24 11:45 Morphine Sulfate 2 mg Q4HPRN PRN IV 10/04/24 11:45 Cancel Nitroglycerin 0.4 mg Q5MINP PRN SL 10/04/24 11:45 Morphine Sulfate 2 mg Q30M PRN IV 10/04/24 11:45 Cancel Lorazepam 50 mg/ Sodium Chloride 50 ml @ 1 mls/hr Q24H IV 10/04/24 18:15 Cancel Amino Acids 0 ml @ 0 mls/hr PER PHARMACY IV 10/05/24 14:30 UNV Diagnostic Test (Pha) 1 strip Q6HR 10/05/24 18:00 11/11/24 05:57 1 STRIP Insulin Human Regular FOLLOW SLIDING SCALE Q6HR SC 10/05/24 18:00 11/03/24 17:23 2 UNITS Dextrose 50 ml UD IV 10/05/24 14:45 Meropenem 50 ml @ 17 mls/hr Q12HR IV 10/07/24 10:00 UNV Labetalol HCl 10 mg Q2HPRN PRN IV 10/08/24 09:30 11/11/24 08:13 10 MG Levalbuterol HCl 0.625 mg Q6HR NEB 10/13/24 12:00 11/11/24 06:12 0.625 MG Ipratropium [place] 0.5 mg Q6HR NEB 10/13/24 12:00 11/11/24 06:12 0.5 MG Morphine Sulfate 2 mg Q4HPRN PRN IV 10/21/24 11:30 11/10/24 05:15 2 MG Nicardipine/ Sodium Chloride 200 ml @ 50 mls/hr Q4H IV 10/22/24 08:45 11/10/24 23:32 50 MLS/HR Acetaminophen 650 mg Q6HP PRN GT 10/22/24 09:00 11/10/24 08:08 650 MG Metoprolol Tartrate 1.25 mg Q6HPRN PRN IV 10/27/24 09:45 11/10/24 11:20 1.25 MG Sucralfate 1 gm BID@0600,2200 GT 10/28/24 22:00 11/10/24 22:03 1 GM Pantoprazole Sodium 50 ml @ 0 mls/hr Q0M IV 10/28/24 16:15 Cancel Midazolam HCl 1 mg Q2HP PRN IV 10/30/24 16:45 11/03/24 15:29 1 MG Epoetin Roger-epbx 10,000 unit MWF@2100 SC 10/31/24 21:00 11/10/24 22:02 10,000 UNIT Sodium Chloride 10 ml QSHIFT@10,22 IV 10/31/24 22:00 11/10/24 22:00 10 ML Pantoprazole Sodium 80 mg BID IV 10/31/24 22:00 11/11/24 00:48 80 MG Micafungin Sodium 100 mg/Sodium Chloride 100 ml @ 100 mls/hr DAILY IV 11/02/24 10:00 11/10/24 12:11 100 MLS/HR Meropenem 50 ml @ 17 mls/hr Q12HR IV 11/03/24 22:00 11/11/24 00:47 17 MLS/HR Acetaminophen/ Hydrocodone Bitart 1 tab Q4HPRN PRN PO 11/06/24 09:15 Enteral Nutritional Formula 1,000 ml 50ML/HR GT 11/06/24 09:30 Metoprolol Tartrate 50 mg BID GT 11/10/24 10:00 11/10/24 21:05 50 MG Metoclopramide HCl 5 mg Q8HR GT 11/11/24 14:00 Lactulose 30 ml DAILY JT 11/11/24 10:00 Sodium Chloride 1,000 ml @ 75 mls/hr [id number] IV 11/11/24 09:15 UNV Laboratory Results Laboratory Tests 11/11/24 02:52 Chemistry Test 11/11/24 02:52 Calcium Level 8.4 mg/dL (8.7-10.4) L Urinalysis Test 10/05/24 15:05 10/26/24 20:33 11/07/24 12:40 Urine Mucus Few (None Seen) Urine Color Light-yellow (Yellow) Urine Clarity Clear (Clear) Urine pH 7.0 (5.0-9.0) Urine Specific [place] 1.014 (1.001-1.035) Urine Protein 1+ (Negative) H Urine Ketones Negative (Negative) Urine Blood 1+ /uL (Negative) H Urine Nitrite Negative (Negative) Urine Bilirubin Negative (Negative) Urine Urobilinogen Normal mg/dL (Negative) Urine Leukocyte Esterase Negative /uL (Negative) Urine RBC 1 /hpf (0 - 3) Urine Microscopic WBC 3 /HPF (0-3) Urine Squamous Epithelial Cells None seen /hpf (<5) Urine Bacteria Few /hpf (None Seen) H Urine Glucose Normal mg/dL (Normal) Urine Creatinine 64.63 mg/dL (30.0-125.0) Urine Protein/Creatinine Ratio 3.11 Urine Sodium 34 mmol/L (40-220) L Urine Total Protein 200.7 mg/dL (1-14) H Microbiology Microbiology Date/Time Source Procedure Growth Status 11/07/24 09:52 Blood Blood Culture - Preliminary Resulted 10/31/24 21:00 Voided Urine Urine Culture - Final Complete 10/18/24 09:21 Pleural Fluid Gram Stain - Final Complete 10/18/24 09:21 Pleural Fluid Body Fluid Culture - Final Complete 10/16/24 12:05 Bronchial Washings Gram Stain - Final Complete 10/16/24 12:05 Bronchial Washings Respiratory Culture - Final Complete 10/04/24 17:10 Nose MRSA Screen - Final Complete Labs and/or images reviewed: Labs reviewed by me, Image(s) reviewed by me Assessment/Plan Assessment/Plan Impression: -severe septic shock -pneumoperitoneum secondary to perforated gastric ulcer -acute kidney injury, hemodynamically mediated, probable VMN -acute hypoxic respiratory failure -shock liver -nicotine dependence -history of CVA -right upper extremity DVT -multifocal pneumonia, probable Gram-positive/Gram-negative etiology -anemia secondary to nutrition, renal failure -bilateral pleural effusions -small left pneumothorax -Failure of ventilator weaning, status post tracheostomy -fungemia Plan: Events: Rash to trunk yesterday. Resolved with H1/H2 lamont and Steroids. Etiology ? PRBC infusion. De-escalate abx. Pending HIDA scan. Elevated BP with Nicardipine gtt restarted. -increase antihypertensives -Surgical consult for Cholecystectomy -GI consultation: Discussed case. -increase tube feeding to 50 mL/hour as tolerated -increase metoprolol tartrate to 50 mg p.o. b.i.d. -antibiotic therapy: Meropenem, micafungin -nephrology consultation: Daily assessment for hemodialysis -repeat labs, chest x-ray, ABG in a.m. Critical care time spent with patient discussing and formulating plan of care: 40 minutes. This does not include time spent performing procedures. This medical document was created using an electronic medical record system with [employer] dictation system. Although this document has been carefully reviewed, there may still be some phonetic and typographical errors. These areas are purely typographical due to imperfections of the software programs, and do not reflect any compromise in the patient's medical care. Plan discussed with: Patient, Other (RN) My Orders Orders - CHEYENNE PIKE NP Procedure Category Date Status Time Comprehensive LAB 11/12/24 Verified Metabolic Panel 04:00 Complete Blood Count LAB 11/12/24 Verified 04:00 Metoclopramide Oral PHA 11/11/24 In Process Soln (Reglan Oral So 14:00 Lactulose Oral PHA 11/11/24 In Process 10:00 Date of Service: Nov 11, 2024 Billing Provider: CHEYENNE PIKE NP Common Visit Codes: 36245-[id number] CARE 30-74 MIN CHEYENNE PIKE NP Nov 11, 2024 09:27
[2024-11-11] MEDS: SOD CHL 0.45% 1,000 ML IV SCH (10:06)
--- NOTE | 2024-11-11 10:43 | DVHPN2 ---
Progress Note - Dictate Date Seen: Nov 11, 2024 Medical Necessity Reason Pt with a Central, PICC or Fol: No The following are medically ne: Central Line, Gómez Catheter Reason for gómez catheter: Strict I&O Subjective Mr. Perez is a 48 years old right-handed gentleman with a history of hypertension, dyslipidemia, multiple strokes, he was brought to the [facility] on 10/04/2024 with a chief company of recurrent syncope, in the hospital, the patient was found to have perforated viscus, and he went through surgical treatment, he was hospital course has been complicated with sepsis, septic shock, pneumonia, right upper extremity DVT. With appropriate treatment, the patient has improved, but he does not mentally recover as anticipated. I saw him on 08/23/2023 for TIA I have seen and examined the patient, discussed with his nurse. he keeps improving, he is awake, he follows verbal commands, he is able to move the left arm a little bit more No abdominal pain T-max: 100 Blood culture, Urinalysis, 08/22/2023: Unremarkable UDS, 08/22/2023: Negative WBC/Hb/PLT'/MCV, 08/22/2023: 10.8/13.1/184/87.4, 10/28/2024: 15/8/487/89.3 10/31/2024: 24.3/9.1/77/88.4 Troponin 1 high-sensitivity, 08/22/2023: 336, 273/300 BUNs/CR, 08/22/2023: 15/1.45 10/31/2024: Two 9/2.42 GFR, 08/22/2023: 59 Liver function test, 10/04/2024: Unremarkable TBI/AST/ALT/AP, 10/04/2024: 0.6/410/335/31, 10/05/2024: 1.3/582/423/39, 10/31/2024: 3.6/54/98/117 TG/CHO L/LDL/HDL, 08/2023: 136/166/111/39 TSH, 08/23/2023: 4.25 Extremity venous study, right arm, 11/09/2024: Thrombus is seen in the cephalic vein in the forearm. DONAL, 08/23/2023: 1. No evidence of intracardiac source of embolus in the study conducted today. 2. Normal valves without significant masses or change vegetations were discernible. 3. No evidence of intra-atrial shunting by bubble study and color Doppler. 4. Mild atherosclerotic plaquing was visualized in the arch of the aorta without evidence of dissection in the visualized part CT head, 10/24/2024: 1. No intracranial hemorrhage or mass effect. 2. [id number]-lepmrvin chronic microvascular ischemic changes. 3. Old bilateral basal ganglia lacunar infarcts. 4. Small bilateral mastoid effusions. CT abdomen/pelvis, 10/04/2024: 1. Extensive intra-abdominal free air concerning for perforated viscus. Surgical consultation is recommended. 2. Enteritis is seen in multiple loops of small bowel in the left hemiabdomen. 3. Moderate abdominopelvic ascites. 4. Small right pleural effusion. CTA neck, head, 08/22/2023:1. CTA head demonstrates no evidence of large vessel occlusion, aneurysm, or significant stenosis. 2. CTA neck demonstrates no evidence of carotid or vertebral dissection or significant stenosis. 3. No noncontrast CT head was performed. 4. Additional findings as detailed above MRI head, 08/23/2023: No acute infarct, intracranial hemorrhage, mass effect, or hydrocephalus. Moderate periventricular and deep subcortical white matter T2 hyperintensities which are nonspecific, but most likely related to sequela of chronic microvascular ischemic changes (I have reviewed the MRI films with our in-house radiologist, Dr. Black, the patient has bilateral multiple subacute/chronic infarcts) MRI head, 11/01/2024: No acute cerebrovascular ischemia. [id number] chronic microvascular ischemic changes. Bilateral mastoid effusions. Old bilateral basal ganglia / lopes radiata infarcts. vital signs Vital Sign Date Time Temp Pulse Resp B/P (MAP) Pulse Ox O2 Delivery O2 Flow Rate FiO2 11/11/24 10:05 188/87 11/11/24 10:04 111 11/11/24 10:00 28 92 Trach Collar 8 30 30 11/11/24 08:00 98.2 98.2 Total Intake and Output 11/10/24 11/10/24 11/11/24 15:00 23:00 07:00 Intake Total 876 ml 1134 ml 701 ml Output Total 1870 ml 1415 ml Balance 876 ml -736 ml -714 ml medications Current Medications Medications Dose Ordered Sig/Wally Route Start Time Stop Time Status Last Admin Dose Admin Ondansetron HCl 4 mg Q4HP PRN IV 10/04/24 11:45 Morphine Sulfate 2 mg Q4HPRN PRN IV 10/04/24 11:45 Cancel Nitroglycerin 0.4 mg Q5MINP PRN SL 10/04/24 11:45 Morphine Sulfate 2 mg Q30M PRN IV 10/04/24 11:45 Cancel Lorazepam 50 mg/ Sodium Chloride 50 ml @ 1 mls/hr Q24H IV 10/04/24 18:15 Cancel Amino Acids 0 ml @ 0 mls/hr PER PHARMACY IV 10/05/24 14:30 UNV Diagnostic Test (Pha) 1 strip Q6HR 10/05/24 18:00 11/11/24 05:57 1 STRIP Insulin Human Regular FOLLOW SLIDING SCALE Q6HR SC 10/05/24 18:00 11/03/24 17:23 2 UNITS Dextrose 50 ml UD IV 10/05/24 14:45 Meropenem 50 ml @ 17 mls/hr Q12HR IV 10/07/24 10:00 UNV Labetalol HCl 10 mg Q2HPRN PRN IV 10/08/24 09:30 11/11/24 08:13 10 MG Levalbuterol HCl 0.625 mg Q6HR NEB 10/13/24 12:00 11/11/24 06:12 0.625 MG Ipratropium [place] 0.5 mg Q6HR NEB 10/13/24 12:00 11/11/24 06:12 0.5 MG Morphine Sulfate 2 mg Q4HPRN PRN IV 10/21/24 11:30 11/10/24 05:15 2 MG Nicardipine/ Sodium Chloride 200 ml @ 50 mls/hr Q4H IV 10/22/24 08:45 11/10/24 23:32 50 MLS/HR Acetaminophen 650 mg Q6HP PRN GT 10/22/24 09:00 11/10/24 08:08 650 MG Metoprolol Tartrate 1.25 mg Q6HPRN PRN IV 10/27/24 09:45 11/10/24 11:20 1.25 MG Sucralfate 1 gm BID@0600,2200 GT 10/28/24 22:00 11/10/24 22:03 1 GM Pantoprazole Sodium 50 ml @ 0 mls/hr Q0M IV 10/28/24 16:15 Cancel Midazolam HCl 1 mg Q2HP PRN IV 10/30/24 16:45 11/03/24 15:29 1 MG Epoetin Roger-epbx 10,000 unit MWF@2100 SC 10/31/24 21:00 11/10/24 22:02 10,000 UNIT Sodium Chloride 10 ml QSHIFT@10,22 IV 10/31/24 22:00 11/11/24 10:06 10 ML Pantoprazole Sodium 80 mg BID IV 10/31/24 22:00 11/11/24 10:04 80 MG Micafungin Sodium 100 mg/Sodium Chloride 100 ml @ 100 mls/hr DAILY IV 11/02/24 10:00 11/11/24 10:04 100 MLS/HR Meropenem 50 ml @ 17 mls/hr Q12HR IV 11/03/24 22:00 11/11/24 00:47 17 MLS/HR Acetaminophen/ Hydrocodone Bitart 1 tab Q4HPRN PRN PO 11/06/24 09:15 Enteral Nutritional Formula 1,000 ml 50ML/HR GT 11/06/24 09:30 Metoprolol Tartrate 50 mg BID GT 11/10/24 10:00 11/11/24 10:04 50 MG Metoclopramide HCl 5 mg Q8HR GT 11/11/24 14:00 Lactulose 30 ml DAILY JT 11/11/24 10:00 Sodium Chloride 1,000 ml @ 75 mls/hr [id number] IV 11/11/24 09:15 11/11/24 10:06 75 MLS/HR Amlodipine Besylate 10 mg DAILY GT 11/11/24 10:00 11/11/24 10:05 10 MG objective General: the patient is well developed and nourished. No acute distress. MENTAL STATUS: Subjective SPEECH, LANGUAGE, HIGHER CORTICAL FUNCTION: He does not vocalize/status post tracheostomy. CRANIAL NERVES:Intact visual ansari to confrontation (visual thread). Pupils are equal, round and reactive. EOMs full and conjugate. Mandibular strength intact. Facial muscles symmetrical and strength intact. SENSATION: Sensation to touch and pinprick is unremarkable MOTOR: Normal muscle bulk. No fasciculations. No abnormal movements or posturing. He moves the left arm: 3/5. Except for 1-2/5 in the shoulder. Lt leg: >2/5. Moves the right le-3/5 REFLEXES: Deep tendon reflexes are increased bilaterally, clonus in both knees . No pathological reflexes. CEREBELLAR/COORDINATION: Deferred GAIT/STATION: deferred laboratory and microbiology Laboratory Tests 11/11/24 02:52 Test 11/11/24 02:52 Range/Units Serum Glucose 125 H 74-106 mg/dL Problem List Altered mental status Metabolic encephalopathy secondary to sepsis, septic shock, pneumonia Hypoxic encephalopathy Viscus perforation status post surgical repair GI bleeding Anemia Fever/ Sepsis/septic shock Respiratory failure S/P tracheostomy Multiple strokes Secondary to history methamphetamine, cocaine, alcohol use History of alcohol abuse History of cocaine, methamphetamine abuse Hyperreflexia secondary to multiple strokes Right upper extremity DVT Assessment/Plan Monitoring Supportive treatment ICU care Stabilize vitals Respiratory support/vent management Blood culture Follow-up labs IV antibiotics Protonix TPN Quit tobacco smoking No more alcohol, street drug abuse Stroke risk factors discussed GI on case Infectious disease on case Pulmonology on case Hematology on case Nephrology on case More recommended per clinical course This medical document was created using an electronic medical record system with [employer] dictation system. Although this document has been carefully reviewed, there may still be some phonetic and typographical errors. These areas are purely typographical due to imperfections of the software programs, and do not reflect any compromise in the patient's medical care. Prognosis poor Dietary Evaluation Review Comments: 1. Continue TPN to meet at least 75% estimated needs 2. Continue current POC Expected Outcomes/Goals: FU 2-3 days to meet adequate energy & protein within 7 days of NPO Protein Calorie Malnutrition: Severe (rn) Plan discussed with: Other CC Plasma Assessment Blood Product Administration S: [id number] LEANDRO BLACK MD Nov 11, 2024 10:42
--- NOTE | 2024-11-11 10:47 | DVHPNRES ---
Progress Note Date Seen: Nov 11, 2024 Resident Creating Document: SILAS STAHL RESIDENT Has the PT tested + for MRSA If YES, has PT been informed?: No Medical Necessity Reason Pt with a Central, PICC or Fol: No The following are medically ne: Central Line, Gómez Catheter Reason for gómez catheter: Strict I&O Subjective Review of Systems Patient seen and examined at bedside. Patient can not communicate verbally due to tracheostomy tube, but he communicates nodding his head for yes or no. Patient denies any current abdominal tenderness or any pain throughout his body. Patient is still at 8 L of oxygen through the trach tube saturating 99%. Yesterday we recommended to change Gómez catheter, ordered urine cultures, blood cultures and an echocardiogram. We also agree with primary team to continue IV meropenem and micafungin at this time. Upon my examination, there is bilateral lung sounds full of secretions but no wheezes at this time. Cholecystostomy tube is currently draining 150 cc in the last 24 hours. ROS unable to obtain due to patient's current status Objective vital signs Vital Sign Date Time Temp Pulse Resp B/P (MAP) Pulse Ox O2 Delivery O2 Flow Rate FiO2 11/11/24 10:05 188/87 11/11/24 10:04 111 11/11/24 10:00 28 92 Trach Collar 8 30 30 11/11/24 08:00 98.2 98.2 Total Intake and Output 11/10/24 11/10/24 11/11/24 15:00 23:00 07:00 Intake Total 876 ml 1134 ml 701 ml Output Total 1870 ml 1415 ml Balance 876 ml -736 ml -714 ml medications Current Medications Medications Dose Ordered Sig/Wally Route Start Time Stop Time Status Last Admin Dose Admin Ondansetron HCl 4 mg Q4HP PRN IV 10/04/24 11:45 Morphine Sulfate 2 mg Q4HPRN PRN IV 10/04/24 11:45 Cancel Nitroglycerin 0.4 mg Q5MINP PRN SL 10/04/24 11:45 Morphine Sulfate 2 mg Q30M PRN IV 10/04/24 11:45 Cancel Lorazepam 50 mg/ Sodium Chloride 50 ml @ 1 mls/hr Q24H IV 10/04/24 18:15 Cancel Amino Acids 0 ml @ 0 mls/hr PER PHARMACY IV 10/05/24 14:30 UNV Diagnostic Test (Pha) 1 strip Q6HR 10/05/24 18:00 11/11/24 05:57 1 STRIP Insulin Human Regular FOLLOW SLIDING SCALE Q6HR SC 10/05/24 18:00 11/03/24 17:23 2 UNITS Dextrose 50 ml UD IV 10/05/24 14:45 Meropenem 50 ml @ 17 mls/hr Q12HR IV 10/07/24 10:00 UNV Labetalol HCl 10 mg Q2HPRN PRN IV 10/08/24 09:30 11/11/24 08:13 10 MG Levalbuterol HCl 0.625 mg Q6HR NEB 10/13/24 12:00 11/11/24 06:12 0.625 MG Ipratropium [place] 0.5 mg Q6HR NEB 10/13/24 12:00 11/11/24 06:12 0.5 MG Morphine Sulfate 2 mg Q4HPRN PRN IV 10/21/24 11:30 11/10/24 05:15 2 MG Nicardipine/ Sodium Chloride 200 ml @ 50 mls/hr Q4H IV 10/22/24 08:45 11/10/24 23:32 50 MLS/HR Acetaminophen 650 mg Q6HP PRN GT 10/22/24 09:00 11/10/24 08:08 650 MG Metoprolol Tartrate 1.25 mg Q6HPRN PRN IV 10/27/24 09:45 11/10/24 11:20 1.25 MG Sucralfate 1 gm BID@0600,2200 GT 10/28/24 22:00 11/10/24 22:03 1 GM Pantoprazole Sodium 50 ml @ 0 mls/hr Q0M IV 10/28/24 16:15 Cancel Midazolam HCl 1 mg Q2HP PRN IV 10/30/24 16:45 11/03/24 15:29 1 MG Epoetin Roger-epbx 10,000 unit MWF@2100 SC 10/31/24 21:00 11/10/24 22:02 10,000 UNIT Sodium Chloride 10 ml QSHIFT@, IV 10/31/24 22:00 11/11/24 10:06 10 ML Pantoprazole Sodium 80 mg BID IV 10/31/24 22:00 11/11/24 10:04 80 MG Micafungin Sodium 100 mg/Sodium Chloride 100 ml @ 100 mls/hr DAILY IV 11/02/24 10:00 11/11/24 10:04 100 MLS/HR Meropenem 50 ml @ 17 mls/hr Q12HR IV 11/03/24 22:00 11/11/24 00:47 17 MLS/HR Acetaminophen/ Hydrocodone Bitart 1 tab Q4HPRN PRN PO 11/06/24 09:15 Enteral Nutritional Formula 1,000 ml 50ML/HR GT 11/06/24 09:30 Metoprolol Tartrate 50 mg BID GT 11/10/24 10:00 11/11/24 10:04 50 MG Metoclopramide HCl 5 mg Q8HR GT 11/11/24 14:00 Lactulose 30 ml DAILY JT 11/11/24 10:00 Sodium Chloride 1,000 ml @ 75 mls/hr [id number] IV 11/11/24 09:15 11/11/24 10:06 75 MLS/HR Amlodipine Besylate 10 mg DAILY GT 11/11/24 10:00 11/11/24 10:05 10 MG Examination Physical Examination General: Patient is alert and oriented but unable to speak and communicate properly due to tracheostomy tube. HEENT: Normocephalic, atraumatic, moist mucous membranes. Tracheostomy tube in place Respiratory/pulmonary: Bilateral lung sounds grossly clear, no significant evidence of crackles or wheezing at this time. Currently on tracheostomy tube at 8 L of oxygen with an FiO2 of 30% Cardiovascular: Normal heart sounds S1 and S2 with no associated murmurs Abdomen: There is no abdominal distention or masses palpable at this time. There is a central incision were exploratory laparotomy was performed. There is a right-sided cholecystostomy tube placed which is draining approximately 150 cc in the last 24 hours. There is also a visible petechial rash present in the lower abdomen extending up to the chest but is currently resolving. Extremities: There is no peripheral edema present at the lower extremities. Skin: There is a skin rash in the lower abdomen extending up to the upper chest without lower extremities or upper extremity compromise. rash resolving by this time. Neurological: Intact cranial nerves with no focal neurologic deficits laboratory and microbiology Laboratory Tests 11/11/24 02:52 Test 11/11/24 02:52 Range/Units Serum Glucose 125 H 74-106 mg/dL Microbiology Date/Time Source Procedure Growth Status 11/07/24 09:52 Blood Blood Culture - Preliminary Resulted 10/31/24 21:00 Voided Urine Urine Culture - Final Complete 10/18/24 09:21 Pleural Fluid Gram Stain - Final Complete 10/18/24 09:21 Pleural Fluid Body Fluid Culture - Final Complete 10/16/24 12:05 Bronchial Washings Gram Stain - Final Complete 10/16/24 12:05 Bronchial Washings Respiratory Culture - Final Complete 10/04/24 17:10 Nose MRSA Screen - Final Complete Problem List/Assessment/Plan Problem List/Assessment/Plan Assessment/plan Septic shock due to perforated peptic ulcer at the level of the pylorus Status post exploratory laparotomy with repair of large perforated pyloric ulcer GIOVANI due to vasomotor nephropathy likely due to septic shock NSTEMI type 2 likely due to above Severe anemia, possible lower GI bleed Bilateral Multifocal pneumonia Large right-sided pleural effusion, status post chest tube drainage Acute cholecystitis, status post cholecystostomy tube placement Status post tracheostomy Acute fungemia Plan -patient still has intermittent fevers, last fever overnight. -worsening anemia, today hemoglobin was 6.6. 1 unit of red blood cells was transfused. Repeat hemoglobin and hematocrit. Repeat stool occult blood test. -last CT of the abdomen and pelvis, showed contrast passing through the stomach all the way to the intestines. No evidence of free contrast. -surgical consult was placed for possible cholecystectomy -continue IV meropenem and IV micafungin -blood cultures on 10/31/2024 showed growing Milady albicans X2. Last blood cultures on 11/07/2024 showed Gram stain growing budding yeast but no growth in the cultures this point. -we will wait for final reports of blood cultures. -patient is currently on 8 L of oxygen through tracheostomy tube at FiO2 of 30% saturating 100%. -patient is developing small rash in the lower part of the abdomen extending to the upper chest, there is no compromise of upper or lower extremities. Assess for any worsening symptoms of the rash. -all central lines and Devin catheters were removed. Patient is currently on a midline in the left upper arm that was placed yesterday on 11/09/2024 -Gómez catheter was exchanged and urine cultures were sent -pending new blood cultures -pending echocardiogram -avoid TPN and steroids -Will wait for new blood cultures, if persists positive, we will need to take out midline and try a peripheral. Goals of care were discussed with the at bedside and with the patient for >45min, FULL CODE Plan discussed with Dr. Woodard -----Addendum Dr. Jessica Woodard --- Patient is a 48 year old male with a past medical history of stroke , hypertension , emphysema. patient was brought in by family due to mental status . Patient was having constipation for several days prior to admission . CT abdomen and pelvis showed a perforated viscus and surgery was consulted . Xlab was done , patient was found to have pepticles for perforation at levels of pylori of about 6 cm . Surgical corrected was performed . 3 catheters were placed and patient was admitted to ICU and put on pressers and IV antibiotics. liver ultrasound showed gallbladder wall thickening and pericolic cystitis edema consistent with acute cholecystitis due to hemodynamic instability . percutaneous cholecystostomy was placed by IR rather than surgical drainage . patient developed multifocal pneumonia and covered by antibiotics and patient underwent thoracentesis as well as chest tube placement . chest tube has been removed , right sided cholecystostomy tube remains in place . patient was trachea on october 27 2024 . Infectious disease was consulted due to blood cultures being persistently positive for peña albakins . patient has been on micafungin and meropenem . Patient is febrile with a T-max of 103 , with worsening anemia . Hemoglobin is 6.6 and received a blood transfusion . Likely the etiology of persistent fungemia include line related as patient has a midline placed white patient was actively fungemic . Would also be concerned about untreated source of bowel leak . endocarditis also remains a small possibility as well Last Ct abdomen and pelvis was done with contrast and showed no evidence of bowel leak 11/11: unable to communicate besides yes and no . on trach collar . 150ccs of cholecystostomy drainage . Plan : - f/u on new blood cultures - continue meropenem and micafungin - recommend fuly exchange of the urine catheter - remove midline if able , other funes would repeat blood cultures and follow along to see if fungemia clears on its own - recommend TTE to ruleout endocarditis - avoid unnecessary TPN and steroid use Authorized and Performed by: Jessica Woodard Total critical care time: Approximately 76 minutes Due to a high probability of clinically significant, life threatening deterioration, the patient required my highest level of preparedness to intervene emergently and I personally spent this critical care time directly and personally managing the patient. This critical care time included obtaining a history; examining the patient; pulse oximetry; ordering and review of studies; arranging urgent treatment with development of a management plan; evaluation of patient's response to treatment; frequent reassessment; and, discussions with other providers. This critical care time was performed to assess and manage the high probability of imminent, life-threatening deterioration that could result in multi-organ failure. It was exclusive of separately billable procedures and treating other patients and teaching time. Agree with assessment , plan , subjective , physical exam and other findings written above by Dr. MARLEY Plan discussed with: Patient, Other My Orders My Orders Orders - SILAS STALH Procedure Category Date Status Time Ok To Change Gómez ORDERS 11/10/24 Transmitted 19:02 Ok To Change Gómez ORDERS 11/10/24 Transmitted 19:02 Urine Bacterial HOLA 11/10/24 In Process Culture 19:02 Blood Culture HOLA 11/10/24 In Process 19:02 Dietary Evaluation Review Comments: 1. Continue TPN to meet at least 75% estimated needs 2. Continue current POC Expected Outcomes/Goals: FU 2-3 days to meet adequate energy & protein within 7 days of NPO Protein Calorie Malnutrition: Severe (rn) CC Plasma Assessment Blood Product Administration S: [id number] SILAS STAHL RESIDENT Nov 11, 2024 10:47 JESSICA WOODARD MD Nov 28, 2024 17:30
--- NOTE | 2024-11-11 11:15 | DVHPN2 ---
Progress Note Date Seen: Nov 11, 2024 Has the PT tested + for MRSA If YES, has PT been informed?: No Medical Necessity Reason Pt with a Central, PICC or Fol: No The following are medically ne: Central Line, Gómez Catheter Reason for gómez catheter: Strict I&O Subjective Patient reports: No new complaints Other Systems: Patient seen and examined by myself today in follow-up, patient with trach collar Objective vital signs Vital Sign Date Time Temp Pulse Resp B/P (MAP) Pulse Ox O2 Delivery O2 Flow Rate FiO2 11/11/24 11:07 113 171/110 11/11/24 10:00 28 92 Trach Collar 8 30 30 11/11/24 08:00 98.2 98.2 Total Intake and Output 11/10/24 11/10/24 11/11/24 14:59 22:59 06:59 Intake Total 859 ml 1146 ml 706 ml Output Total 1870 ml 1415 ml Balance 859 ml -724 ml -709 ml medications Current Medications Medications Dose Ordered Sig/Wally Route Start Time Stop Time Status Last Admin Dose Admin Ondansetron HCl 4 mg Q4HP PRN IV 10/04/24 11:45 Morphine Sulfate 2 mg Q4HPRN PRN IV 10/04/24 11:45 Cancel Nitroglycerin 0.4 mg Q5MINP PRN SL 10/04/24 11:45 Morphine Sulfate 2 mg Q30M PRN IV 10/04/24 11:45 Cancel Lorazepam 50 mg/ Sodium Chloride 50 ml @ 1 mls/hr Q24H IV 10/04/24 18:15 Cancel Amino Acids 0 ml @ 0 mls/hr PER PHARMACY IV 10/05/24 14:30 UNV Diagnostic Test (Pha) 1 strip Q6HR 10/05/24 18:00 11/11/24 05:57 1 STRIP Insulin Human Regular FOLLOW SLIDING SCALE Q6HR SC 10/05/24 18:00 11/03/24 17:23 2 UNITS Dextrose 50 ml UD IV 10/05/24 14:45 Meropenem 50 ml @ 17 mls/hr Q12HR IV 10/07/24 10:00 UNV Labetalol HCl 10 mg Q2HPRN PRN IV 10/08/24 09:30 11/11/24 08:13 10 MG Levalbuterol HCl 0.625 mg Q6HR NEB 10/13/24 12:00 11/11/24 06:12 0.625 MG Ipratropium [place] 0.5 mg Q6HR NEB 10/13/24 12:00 11/11/24 06:12 0.5 MG Morphine Sulfate 2 mg Q4HPRN PRN IV 10/21/24 11:30 11/10/24 05:15 2 MG Nicardipine/ Sodium Chloride 200 ml @ 50 mls/hr Q4H IV 10/22/24 08:45 11/10/24 23:32 50 MLS/HR Acetaminophen 650 mg Q6HP PRN GT 10/22/24 09:00 11/10/24 08:08 650 MG Metoprolol Tartrate 1.25 mg Q6HPRN PRN IV 10/27/24 09:45 11/10/24 11:20 1.25 MG Sucralfate 1 gm BID@0600,2200 GT 10/28/24 22:00 11/10/24 22:03 1 GM Pantoprazole Sodium 50 ml @ 0 mls/hr Q0M IV 10/28/24 16:15 Cancel Midazolam HCl 1 mg Q2HP PRN IV 10/30/24 16:45 11/03/24 15:29 1 MG Epoetin Roger-epbx 10,000 unit MWF@2100 SC 10/31/24 21:00 11/10/24 22:02 10,000 UNIT Sodium Chloride 10 ml QSHIFT@10,22 IV 10/31/24 22:00 11/11/24 10:06 10 ML Pantoprazole Sodium 80 mg BID IV 10/31/24 22:00 11/11/24 10:04 80 MG Micafungin Sodium 100 mg/Sodium Chloride 100 ml @ 100 mls/hr DAILY IV 11/02/24 10:00 11/11/24 10:04 100 MLS/HR Meropenem 50 ml @ 17 mls/hr Q12HR IV 11/03/24 22:00 11/11/24 00:47 17 MLS/HR Acetaminophen/ Hydrocodone Bitart 1 tab Q4HPRN PRN PO 11/06/24 09:15 Enteral Nutritional Formula 1,000 ml 50ML/HR GT 11/06/24 09:30 Metoprolol Tartrate 50 mg BID GT 11/10/24 10:00 11/11/24 10:04 50 MG Metoclopramide HCl 5 mg Q8HR GT 11/11/24 14:00 Lactulose 30 ml DAILY JT 11/11/24 10:00 Sodium Chloride 1,000 ml @ 75 mls/hr [id number] IV 11/11/24 09:15 11/11/24 10:06 75 MLS/HR Amlodipine Besylate 10 mg DAILY GT 11/11/24 10:00 11/11/24 10:05 10 MG Examination: LUNGS:Normal, CVS:Normal, MSK:Normal laboratory and microbiology Laboratory Tests 11/11/24 02:52 Test 11/11/24 02:52 Range/Units Serum Glucose 125 H 74-106 mg/dL Microbiology Date/Time Source Procedure Growth Status 11/07/24 09:52 Blood Blood Culture - Preliminary Resulted 10/31/24 21:00 Voided Urine Urine Culture - Final Complete 10/18/24 09:21 Pleural Fluid Gram Stain - Final Complete 10/18/24 09:21 Pleural Fluid Body Fluid Culture - Final Complete 10/16/24 12:05 Bronchial Washings Gram Stain - Final Complete 10/16/24 12:05 Bronchial Washings Respiratory Culture - Final Complete 10/04/24 17:10 Nose MRSA Screen - Final Complete Problem List/Assessment/Plan Problem List/Assessment/Plan Assessment/Plan Acute kidney injury likely ATN, FeNa ,> 2% requiring intermittent hemodialysis Acute respiratory failure, patient intubated on ventilator Hemodynamic shock acute blood loss anemia Perforated gastric ulcer status post surgery 10/04 Hypernatremia due to dehydration Pneumonia Sepsis Hypomagnesemia Hypokalemia Hypertensive urgency Empyema status post right chest tube Acute blood loss anemia status post PRBC Recommendations Kidney function continues to improve off hemodialysis Increased urine output Hyponatremia appropriately resolved Patient receiving packed red blood cells transfusion Gómez catheter Strict I&Os Change IV to half NS at 75 cc/hour DC vancomycin DC ibuprofen ID consult KCL replacement We will continue to follow Plan discussed with: Patient My Orders My Orders Orders - MILADY ANDERSON MD Procedure Category Date Status Time Sod Chl 0.45% (Sodium PHA 11/11/24 In Process Chloride 0.45% Via 09:15 Dietary Evaluation Review Comments: 1. Continue TPN to meet at least 75% estimated needs 2. Continue current POC Expected Outcomes/Goals: FU 2-3 days to meet adequate energy & protein within 7 days of NPO Protein Calorie Malnutrition: Severe (rn) CC Plasma Assessment Blood Product Administration S: [id number] MILADY ANDERSON MD Nov 11, 2024 11:15
--- NOTE | 2024-11-11 12:52 | DVHPN2 ---
Progress Note - Dictate Date Seen: Nov 11, 2024 Has the PT tested + for MRSA If YES, has PT been informed?: No Medical Necessity Reason Pt with a Central, PICC or Fol: No The following are medically ne: Central Line, Gómez Catheter Reason for gómez catheter: Strict I&O vital signs Vital Sign Date Time Temp Pulse Resp B/P (MAP) Pulse Ox O2 Delivery O2 Flow Rate FiO2 11/11/24 12:00 28 99 Trach Collar 8 40 40 11/11/24 12:00 112 11/11/24 11:07 171/110 11/11/24 08:00 98.2 98.2 Total Intake and Output 11/10/24 11/10/24 11/11/24 15:00 23:00 07:00 Intake Total 876 ml 1134 ml 701 ml Output Total 1870 ml 1415 ml Balance 876 ml -736 ml -714 ml medications Current Medications Medications Dose Ordered Sig/Wally Route Start Time Stop Time Status Last Admin Dose Admin Ondansetron HCl 4 mg Q4HP PRN IV 10/04/24 11:45 Morphine Sulfate 2 mg Q4HPRN PRN IV 10/04/24 11:45 Cancel Nitroglycerin 0.4 mg Q5MINP PRN SL 10/04/24 11:45 Morphine Sulfate 2 mg Q30M PRN IV 10/04/24 11:45 Cancel Lorazepam 50 mg/ Sodium Chloride 50 ml @ 1 mls/hr Q24H IV 10/04/24 18:15 Cancel Amino Acids 0 ml @ 0 mls/hr PER PHARMACY IV 10/05/24 14:30 UNV Diagnostic Test (Pha) 1 strip Q6HR 10/05/24 18:00 11/11/24 11:39 1 STRIP Insulin Human Regular FOLLOW SLIDING SCALE Q6HR SC 10/05/24 18:00 11/03/24 17:23 2 UNITS Dextrose 50 ml UD IV 10/05/24 14:45 Meropenem 50 ml @ 17 mls/hr Q12HR IV 10/07/24 10:00 UNV Labetalol HCl 10 mg Q2HPRN PRN IV 10/08/24 09:30 11/11/24 08:13 10 MG Levalbuterol HCl 0.625 mg Q6HR NEB 10/13/24 12:00 11/11/24 11:28 0.625 MG Ipratropium [place] 0.5 mg Q6HR NEB 10/13/24 12:00 11/11/24 11:28 0.5 MG Morphine Sulfate 2 mg Q4HPRN PRN IV 10/21/24 11:30 11/10/24 05:15 2 MG Nicardipine/ Sodium Chloride 200 ml @ 50 mls/hr Q4H IV 10/22/24 08:45 11/10/24 23:32 50 MLS/HR Acetaminophen 650 mg Q6HP PRN GT 10/22/24 09:00 11/10/24 08:08 650 MG Metoprolol Tartrate 1.25 mg Q6HPRN PRN IV 10/27/24 09:45 11/10/24 11:20 1.25 MG Sucralfate 1 gm BID@0600,2200 GT 10/28/24 22:00 11/10/24 22:03 1 GM Pantoprazole Sodium 50 ml @ 0 mls/hr Q0M IV 10/28/24 16:15 Cancel Midazolam HCl 1 mg Q2HP PRN IV 10/30/24 16:45 11/03/24 15:29 1 MG Epoetin Roger-epbx 10,000 unit MWF@2100 SC 10/31/24 21:00 11/10/24 22:02 10,000 UNIT Sodium Chloride 10 ml QSHIFT@10,22 IV 10/31/24 22:00 11/11/24 10:06 10 ML Pantoprazole Sodium 80 mg BID IV 10/31/24 22:00 11/11/24 10:04 80 MG Micafungin Sodium 100 mg/Sodium Chloride 100 ml @ 100 mls/hr DAILY IV 11/02/24 10:00 11/11/24 10:04 100 MLS/HR Meropenem 50 ml @ 17 mls/hr Q12HR IV 11/03/24 22:00 11/11/24 11:38 17 MLS/HR Acetaminophen/ Hydrocodone Bitart 1 tab Q4HPRN PRN PO 11/06/24 09:15 Enteral Nutritional Formula 1,000 ml 50ML/HR GT 11/06/24 09:30 Metoprolol Tartrate 50 mg BID GT 11/10/24 10:00 11/11/24 10:04 50 MG Metoclopramide HCl 5 mg Q8HR GT 11/11/24 14:00 Lactulose 30 ml DAILY JT 11/11/24 10:00 Sodium Chloride 1,000 ml @ 75 mls/hr [id number] IV 11/11/24 09:15 11/11/24 10:06 75 MLS/HR Amlodipine Besylate 10 mg DAILY GT 11/11/24 10:00 11/11/24 10:05 10 MG laboratory and microbiology Laboratory Tests 11/11/24 02:52 Test 11/11/24 02:52 Range/Units Serum Glucose 125 H 74-106 mg/dL Assessment/Plan Impression Acute hypoxemic respiratory failure S/p tracheostomy Perforated viscus Septic shock Smoker Patient seen and examined in ICU Events S/p tracheostomy Tolerating trache collar No acute events Labs and imaging reviewed ABG reviewed Management Vent support as needed Titrate to maintain sats 90% or above Trache collar follow up with gen sx Continue antibiotics and antifungals F/u cultures Bronchodilators Monitor renal function Monitor electrolytes Supplement as needed HD per nephrology Nutritional support Tube feedings DVT prophylaxis Critical care time 35 minutes Dietary Evaluation Review Comments: 1. Continue TPN to meet at least 75% estimated needs 2. Continue current POC Expected Outcomes/Goals: FU 2-3 days to meet adequate energy & protein within 7 days of NPO Protein Calorie Malnutrition: Severe (rn) Plan discussed with: Other (Rn) CC Plasma Assessment Blood Product Administration S: [id number] VALENTE DEE MD Nov 11, 2024 12:52
--- NOTE | 2024-11-11 14:08 | DVHPN2 ---
Progress Note Date Seen: Nov 11, 2024 Has the PT tested + for MRSA If YES, has PT been informed?: No Medical Necessity Reason Pt with a Central, PICC or Fol: No The following are medically ne: Central Line, Gómez Catheter Reason for gómez catheter: Strict I&O Objective vital signs Vital Sign Date Time Temp Pulse Resp B/P (MAP) Pulse Ox O2 Delivery O2 Flow Rate FiO2 11/11/24 13:28 111 171/118 11/11/24 12:00 28 99 Trach Collar 8 40 40 11/11/24 08:00 98.2 98.2 Total Intake and Output 11/10/24 11/10/24 11/11/24 15:00 23:00 07:00 Intake Total 876 ml 1134 ml 701 ml Output Total 1870 ml 1415 ml Balance 876 ml -736 ml -714 ml medications Current Medications Medications Dose Ordered Sig/Wally Route Start Time Stop Time Status Last Admin Dose Admin Ondansetron HCl 4 mg Q4HP PRN IV 10/04/24 11:45 Morphine Sulfate 2 mg Q4HPRN PRN IV 10/04/24 11:45 Cancel Nitroglycerin 0.4 mg Q5MINP PRN SL 10/04/24 11:45 Morphine Sulfate 2 mg Q30M PRN IV 10/04/24 11:45 Cancel Lorazepam 50 mg/ Sodium Chloride 50 ml @ 1 mls/hr Q24H IV 10/04/24 18:15 Cancel Amino Acids 0 ml @ 0 mls/hr PER PHARMACY IV 10/05/24 14:30 UNV Diagnostic Test (Pha) 1 strip Q6HR 10/05/24 18:00 11/11/24 11:39 1 STRIP Insulin Human Regular FOLLOW SLIDING SCALE Q6HR SC 10/05/24 18:00 11/03/24 17:23 2 UNITS Dextrose 50 ml UD IV 10/05/24 14:45 Meropenem 50 ml @ 17 mls/hr Q12HR IV 10/07/24 10:00 UNV Labetalol HCl 10 mg Q2HPRN PRN IV 10/08/24 09:30 11/11/24 13:28 10 MG Levalbuterol HCl 0.625 mg Q6HR NEB 10/13/24 12:00 11/11/24 11:28 0.625 MG Ipratropium [place] 0.5 mg Q6HR NEB 10/13/24 12:00 11/11/24 11:28 0.5 MG Morphine Sulfate 2 mg Q4HPRN PRN IV 10/21/24 11:30 11/10/24 05:15 2 MG Nicardipine/ Sodium Chloride 200 ml @ 50 mls/hr Q4H IV 10/22/24 08:45 11/10/24 23:32 50 MLS/HR Acetaminophen 650 mg Q6HP PRN GT 10/22/24 09:00 11/10/24 08:08 650 MG Metoprolol Tartrate 1.25 mg Q6HPRN PRN IV 10/27/24 09:45 11/10/24 11:20 1.25 MG Sucralfate 1 gm BID@0600,2200 GT 10/28/24 22:00 11/10/24 22:03 1 GM Pantoprazole Sodium 50 ml @ 0 mls/hr Q0M IV 10/28/24 16:15 Cancel Midazolam HCl 1 mg Q2HP PRN IV 10/30/24 16:45 11/03/24 15:29 1 MG Epoetin Roger-epbx 10,000 unit MWF@2100 SC 10/31/24 21:00 11/10/24 22:02 10,000 UNIT Sodium Chloride 10 ml QSHIFT@10,22 IV 10/31/24 22:00 11/11/24 10:06 10 ML Pantoprazole Sodium 80 mg BID IV 10/31/24 22:00 11/11/24 10:04 80 MG Micafungin Sodium 100 mg/Sodium Chloride 100 ml @ 100 mls/hr DAILY IV 11/02/24 10:00 11/11/24 10:04 100 MLS/HR Meropenem 50 ml @ 17 mls/hr Q12HR IV 11/03/24 22:00 11/11/24 11:38 17 MLS/HR Acetaminophen/ Hydrocodone Bitart 1 tab Q4HPRN PRN PO 11/06/24 09:15 Enteral Nutritional Formula 1,000 ml 50ML/HR GT 11/06/24 09:30 Metoprolol Tartrate 50 mg BID GT 11/10/24 10:00 11/11/24 10:04 50 MG Metoclopramide HCl 5 mg Q8HR GT 11/11/24 14:00 Lactulose 30 ml DAILY JT 11/11/24 10:00 Sodium Chloride 1,000 ml @ 75 mls/hr [id number] IV 11/11/24 09:15 11/11/24 10:06 75 MLS/HR Amlodipine Besylate 10 mg DAILY GT 11/11/24 10:00 11/11/24 10:05 10 MG laboratory and microbiology Laboratory Tests 11/11/24 02:52 Test 11/11/24 02:52 Range/Units Serum Glucose 125 H 74-106 mg/dL Problem List/Assessment/Plan Problem List/Assessment/Plan 10/10/24 patient had exploratory operation with closure of perforated peptic ulceration about 5 days ago, now concern about possible cholecystitis. GB sludge,GB wall thickened and surounding edema,.LFT's elevated. [patient has history of heavy alcohol use(spouse report). LFTs elevation could be due to liver Ds but cholecystostomy is a reasonable next step, will follow with you 10/14/24 patient appears "surgically stable", will get gastrografin UGI prior to resuming gastric feedings 10/16/24 GASTROGRAFGIN UGI POSSIBLY WITH PERSISTENT LEAK FROM REPAIRED PYLORIC PERFORATION, I HAVE ORDERED A CT SCAN FOR CONFIRMATION 10/24/24 clinically unchanged,being weaned off ventilator, abdomen non distended, tolerating tube feedings, having BM's, KWAN drains with minimal clear drainage, drains removed. 10/26/24 large gastric residual volumes, suspect gastroparesis, vent settings acceptable for tracheostomy, planned for tomorrow 10/27/24 post tracheostomy CXR shows tracheostomy in good locaTION ABOVE THE EVELIA, NO EVIDENCE OF PNEUMOTHORAX OR MEDIASTINAL; WIDENING. i HAVE CALLED PATIENT'S 10/28/24 tracheostomy OK,cxr OK,will sign off, please recall if needed 11/07/24 I am requested to perform a cholecystectomy due to suspicion of persistent GB infection and persistent sepsis. The las CT scan of abdomen and pelvis did not show presence of stones in the GB or evidence of cholecystitis. patient's abdomen is non tender, there is a cholecystostomy in place with scant drainage. I will get a CT scan to r/o other etiology of abdominal infection. 11/08/24 CT REVIEWED, ABDOMEN NON TENDER, i DOP NOT THINK HIS GALLBLADDER IS THE SOURCE OF HIS SEPSIS, OPERATION CAN BE TIMED AFTER OVERALL IMPROVEMENT 11/11/24 leukocytosis improved but still with left shift, HIDA scan pending, will follow after HIDA completed Plan discussed with: Other Dietary Evaluation Review Comments: 1. Continue TPN to meet at least 75% estimated needs 2. Continue current POC Expected Outcomes/Goals: FU 2-3 days to meet adequate energy & protein within 7 days of NPO Protein Calorie Malnutrition: Severe (rn) LOBO BOSWELL MD Nov 11, 2024 14:08
--- NOTE | 2024-11-11 15:04 | DVHPN2 ---
Progress Note Date Seen: Nov 11, 2024 Resident Creating Document: KWASI MILLAN RESIDENT Has the PT tested + for MRSA If YES, has PT been informed?: No Medical Necessity Reason Pt with a Central, PICC or Fol: No The following are medically ne: Central Line, Gómez Catheter Reason for gómez catheter: Strict I&O Subjective Review of Systems Patient is seen today at bedside Patient with ongoing low-grade Patient had blood transfusion yesterday Leukocytosis trending down H&H 8.3.2 Patient was seen by surgery, pending HIDA scan to be completed Patient is being followed by Nephrology and Infectious Disease and Neurology Objective vital signs Vital Sign Date Time Temp Pulse Resp B/P (MAP) Pulse Ox O2 Delivery O2 Flow Rate FiO2 11/11/24 14:30 101 173/118 11/11/24 12:00 28 99 Trach Collar 8 40 40 11/11/24 08:00 98.2 98.2 Total Intake and Output 11/10/24 11/10/24 11/11/24 15:00 23:00 07:00 Intake Total 876 ml 1134 ml 701 ml Output Total 1870 ml 1415 ml Balance 876 ml -736 ml -714 ml medications Current Medications Medications Dose Ordered Sig/Wally Route Start Time Stop Time Status Last Admin Dose Admin Ondansetron HCl 4 mg Q4HP PRN IV 10/04/24 11:45 Morphine Sulfate 2 mg Q4HPRN PRN IV 10/04/24 11:45 Cancel Nitroglycerin 0.4 mg Q5MINP PRN SL 10/04/24 11:45 Morphine Sulfate 2 mg Q30M PRN IV 10/04/24 11:45 Cancel Lorazepam 50 mg/ Sodium Chloride 50 ml @ 1 mls/hr Q24H IV 10/04/24 18:15 Cancel Amino Acids 0 ml @ 0 mls/hr PER PHARMACY IV 10/05/24 14:30 UNV Diagnostic Test (Pha) 1 strip Q6HR 10/05/24 18:00 11/11/24 11:39 1 STRIP Insulin Human Regular FOLLOW SLIDING SCALE Q6HR SC 10/05/24 18:00 11/03/24 17:23 2 UNITS Dextrose 50 ml UD IV 10/05/24 14:45 Meropenem 50 ml @ 17 mls/hr Q12HR IV 10/07/24 10:00 UNV Labetalol HCl 10 mg Q2HPRN PRN IV 10/08/24 09:30 11/11/24 13:28 10 MG Levalbuterol HCl 0.625 mg Q6HR NEB 10/13/24 12:00 11/11/24 11:28 0.625 MG Ipratropium [place] 0.5 mg Q6HR NEB 10/13/24 12:00 11/11/24 11:28 0.5 MG Morphine Sulfate 2 mg Q4HPRN PRN IV 10/21/24 11:30 11/10/24 05:15 2 MG Nicardipine/ Sodium Chloride 200 ml @ 50 mls/hr Q4H IV 10/22/24 08:45 11/10/24 23:32 50 MLS/HR Acetaminophen 650 mg Q6HP PRN GT 10/22/24 09:00 11/10/24 08:08 650 MG Metoprolol Tartrate 1.25 mg Q6HPRN PRN IV 10/27/24 09:45 11/10/24 11:20 1.25 MG Sucralfate 1 gm BID@0600,2200 GT 10/28/24 22:00 11/10/24 22:03 1 GM Pantoprazole Sodium 50 ml @ 0 mls/hr Q0M IV 10/28/24 16:15 Cancel Midazolam HCl 1 mg Q2HP PRN IV 10/30/24 16:45 11/03/24 15:29 1 MG Epoetin Roger-epbx 10,000 unit MWF@2100 SC 10/31/24 21:00 11/10/24 22:02 10,000 UNIT Sodium Chloride 10 ml QSHIFT@10,22 IV 10/31/24 22:00 11/11/24 10:06 10 ML Pantoprazole Sodium 80 mg BID IV 10/31/24 22:00 11/11/24 10:04 80 MG Micafungin Sodium 100 mg/Sodium Chloride 100 ml @ 100 mls/hr DAILY IV 11/02/24 10:00 11/11/24 10:04 100 MLS/HR Meropenem 50 ml @ 17 mls/hr Q12HR IV 11/03/24 22:00 11/11/24 11:38 17 MLS/HR Acetaminophen/ Hydrocodone Bitart 1 tab Q4HPRN PRN PO 11/06/24 09:15 Enteral Nutritional Formula 1,000 ml 50ML/HR GT 11/06/24 09:30 Metoprolol Tartrate 50 mg BID GT 11/10/24 10:00 11/11/24 10:04 50 MG Metoclopramide HCl 5 mg Q8HR GT 11/11/24 14:00 Lactulose 30 ml DAILY JT 11/11/24 10:00 Sodium Chloride 1,000 ml @ 75 mls/hr [id number] IV 11/11/24 09:15 11/11/24 10:06 75 MLS/HR Amlodipine Besylate 10 mg DAILY GT 11/11/24 10:00 11/11/24 10:05 10 MG laboratory and microbiology Laboratory Tests 11/11/24 02:52 Test 11/11/24 02:52 Range/Units Serum Glucose 125 H 74-106 mg/dL Microbiology Date/Time Source Procedure Growth Status 11/07/24 09:52 Blood Blood Culture - Preliminary Resulted 10/31/24 21:00 Voided Urine Urine Culture - Final Complete 10/18/24 09:21 Pleural Fluid Gram Stain - Final Complete 10/18/24 09:21 Pleural Fluid Body Fluid Culture - Final Complete 10/16/24 12:05 Bronchial Washings Gram Stain - Final Complete 10/16/24 12:05 Bronchial Washings Respiratory Culture - Final Complete 10/04/24 17:10 Nose MRSA Screen - Final Complete Problem List/Assessment/Plan Problem List/Assessment/Plan Assessment and plan (1) Cholecystitis (2) TIA (transient ischemic attack) (3) Altered mental status (4) Severe anemia (5) Perforated viscus (6) NSTEMI (non-ST elevated myocardial infarction) (7) GI bleed (8) Septic shock (9) Leukocytosis Events Patient with ongoing low-grade Patient had blood transfusion yesterday Leukocytosis trending down H&H 8.3.2 Patient was seen by surgery, pending HIDA scan to be completed Patient is being followed by Nephrology and Infectious Disease and Neurology Patient on trach collar Plan Repeat stool occult blood test Pending HIDA scan-surgery we will follow up with a HIDA scan Surgery recommendation reviewed and appreciated Cholecystectomy as per surgical consult -as per surgery cholecystectomy can be timed after overall improvement Monitor CBC, BNP Continue IV ppi Protonix Continue current antibiotic Plan discussed with Dr. Chanda Stoddard , nursing staff, Total time spent on patient evaluation, chart review, assessment and plan, discussion discussion >35 minutes Plan discussed with: Patient, Other (RN) My Orders My Orders Orders - KWASI MILLAN Procedure Category Date Status Time Stool Occult Blood LAB 11/11/24 Logged 13:43 Dietary Evaluation Review Comments: 1. Continue TPN to meet at least 75% estimated needs 2. Continue current POC Expected Outcomes/Goals: FU 2-3 days to meet adequate energy & protein within 7 days of NPO Protein Calorie Malnutrition: Severe (rn) CC Plasma Assessment Blood Product Administration S: [id number] KWASI MILLAN RESIDENT Nov 11, 2024 15:04
[2024-11-11] MEDS: METOCLOPRAMIDE 10 mg/10ml ORAL soln GT SCH (17:06)
[2024-11-11] MEDS: LACTULOSE 20Gm/30ML SOLN JT SCH (17:07)
--- NOTE | 2024-11-11 19:27 | DVH ---
RADIONUCLIDE HEPATOBILIARY (HIDA) SCAN HISTORY: R/O CHOLECYSTITIS TECHNIQUE: Radiopharmaceutical: mCi of 99m- technetium Mebrofenin was administered intravenously. Static images of the upper abdomen were obtained at intervals for 1 hour. COMPARISON: None FINDINGS: There is relatively homogeneous tracer uptake within the liver parenchyma on the anterior 5 minute image. A percutaneous cholecystostomy tube is noted. Radiotracer is noted within a portion of the gallbladde r at 60 minutes and tracking into the cholecystostomy tube at the 4 hour delete images. There is radi otracer within the bowel by 60 minutes. IMPRESSION: 1. Percutaneous cholecystostomy tube slightly limits evaluation ; However, there is radiotracer withi n a small portion of the gallbladder as well as in the percutaneous cholecystostomy tube indicating p atency of the cystic duct
--- NOTE | 2024-11-11 22:58 | DVHSR ---
APPROVED REPORT EXAM: Two-dimensional and M-mode echocardiogram with Doppler and color Doppler. Blood Pressure: 123/66 mmHg INDICATION R/O Vegetations RISK FACTORS Height: 5'7", Weight: 121 DIMENSIONS LVDd4.2 (3.8-5.7cm)LA (2D)3.5 (1.9-4.0cm)Aortic Root3.4 (2.0-3.7cm) LVDs2.9 (2.5-4.0cm)LA (MM) (1.9-4.0cm)Aortic Cusp Exc2.0 (1.5-2.0cm) EF (%) 60.0 (55-70%)Rt. Atrium2.1 (1.9-4.0cm)Asc. Aorta cm IVSd1.1 (0.7-1.1cm)RV (D) (1.8-2.4cm) PWd1.0 (0.7-1.1cm) Mitral Valve MitralMitral Stenosis E/A ratio0.02D MVAcm2 Aortic Valve Aortic ValveAortic Stenosis LVOT Diameter2.1 (1.8-2.4cm)Doppler AVAcm2 Pulmonic Valve V21.00m/s Other Information Quality : Technically LimitedRhythm : Technically limited study due to body habitus, patient position, patient moving and coughing. Conclusion MILD LVH AND MILDLV DIASTOLIC DYSFUNCTION NORMAL VALVES LV EF IS 65% NORMAL RV FUNCTION NO EFFUSION
[2024-11-12] VITALS (64 sets, daily range): BP systolic 148–196; BP diastolic 80–144; PULSE 82–114; RESP 17–39; TEMP 98–98.6; O2SAT 80–100
[2024-11-12 03:37] LABS: Hemoglobin 8.2 g/dL (13.5-17.5); Nucleated Red Blood Cells % 0.1 %
[2024-11-12 03:40] LABS: Hematocrit 24.7 % (41.0-53.0); Mean Corpuscular Hemoglobin 28.7 pg (28.0-32.0); Mean Corpuscular Volume 87.0 fL (80.0-100.0)
[2024-11-12 03:58] LABS: Anion Gap 12 (5-15); BUN/Creatinine Ratio 25.0 (10.0-20.0); Carbon Dioxide 23 mmol/L (20-31); Glucose 94 mg/dL (74-106); Total Protein 7.5 g/dL (5.7-8.2)
[2024-11-12 04:21] LABS: Alanine Aminotransferase 43 U/L (7-40); Albumin 3.0 g/dL (3.2-4.8); Alkaline Phosphatase 233 U/L (46-116); Bilirubin, Total 1.5 mg/dL (0.2-1.0); Blood Urea Nitrogen 60 mg/dL (9-23); Calcium 8.3 mg/dL (8.7-10.4); Chloride 116 mmol/L (98-107); Potassium 3.2 mmol/L (3.5-5.1); Sodium 151 mmol/L (136-145)
[2024-11-12] MEDS: POTASSIUM CHL 20MEQ/100ML 100 ML IV ONE (06:31)
--- NOTE | 2024-11-12 09:39 | DVHPN2 ---
Subjective Patient continues to be encephalopathic. Following some commands Reviewed: Care Plan, H&P, Labs, Medications, Previous Orders, Radiology, Other (Consultants) Changes from previous H/P or p: No Changes General: Per HPI Objective Vitals Vital Signs Date Time Temp Pulse Resp B/P (MAP) Pulse Ox O2 Delivery O2 Flow Rate FiO2 11/12/24 08:48 85 170/94 11/12/24 07:30 25 97 11/12/24 06:39 T-piece 8 30 Cool Aerosol 30 11/12/24 04:00 98.0 98.0 Intake/Output Intake and Output 11/12/24 07:00 Intake Total 2223 ml Output Total 2010 ml Balance 213 ml Intake Oral 180 ml IV Total 1892 ml Tube Feeding 151 ml Output Urine Total 1700 ml Drainage Total 310 ml General Appearance: Alert, Oriented X3, Cooperative, mild distress, Other HEENT: Atraumatic, PERRLA Lungs: Clear to auscultation, Normal air movement, Other Cardiovascular: Normal S1, Normal S2, Other Abdomen: Other Extremities: Normal pulses Neuro: Other Skin: Dry, Intact, Wounds, Other Psych/Mental Status: Other Medications Current Medications Medications Dose Ordered Sig/Wally Route Start Time Stop Time Status Last Admin Dose Admin Ondansetron HCl 4 mg Q4HP PRN IV 10/04/24 11:45 Morphine Sulfate 2 mg Q4HPRN PRN IV 10/04/24 11:45 Cancel Nitroglycerin 0.4 mg Q5MINP PRN SL 10/04/24 11:45 Morphine Sulfate 2 mg Q30M PRN IV 10/04/24 11:45 Cancel Lorazepam 50 mg/ Sodium Chloride 50 ml @ 1 mls/hr Q24H IV 10/04/24 18:15 Cancel Amino Acids 0 ml @ 0 mls/hr PER PHARMACY IV 10/05/24 14:30 UNV Diagnostic Test (Pha) 1 strip Q6HR 10/05/24 18:00 11/12/24 06:49 1 STRIP Insulin Human Regular FOLLOW SLIDING SCALE Q6HR SC 10/05/24 18:00 11/03/24 17:23 2 UNITS Dextrose 50 ml UD IV 10/05/24 14:45 Meropenem 50 ml @ 17 mls/hr Q12HR IV 10/07/24 10:00 UNV Labetalol HCl 10 mg Q2HPRN PRN IV 10/08/24 09:30 11/12/24 08:48 10 MG Levalbuterol HCl 0.625 mg Q6HR NEB 10/13/24 12:00 11/12/24 06:39 0.625 MG Ipratropium [place] 0.5 mg Q6HR NEB 10/13/24 12:00 11/12/24 06:39 0.5 MG Morphine Sulfate 2 mg Q4HPRN PRN IV 10/21/24 11:30 11/10/24 05:15 2 MG Acetaminophen 650 mg Q6HP PRN GT 10/22/24 09:00 11/10/24 08:08 650 MG Metoprolol Tartrate 1.25 mg Q6HPRN PRN IV 10/27/24 09:45 11/10/24 11:20 1.25 MG Sucralfate 1 gm BID@0600,2200 GT 10/28/24 22:00 11/12/24 06:49 1 GM Pantoprazole Sodium 50 ml @ 0 mls/hr Q0M IV 10/28/24 16:15 Cancel Midazolam HCl 1 mg Q2HP PRN IV 10/30/24 16:45 11/03/24 15:29 1 MG Epoetin Roger-epbx 10,000 unit MWF@2100 SC 10/31/24 21:00 11/10/24 22:02 10,000 UNIT Sodium Chloride 10 ml QSHIFT@10,22 IV 10/31/24 22:00 11/11/24 22:17 10 ML Pantoprazole Sodium 80 mg BID IV 10/31/24 22:00 11/11/24 22:15 80 MG Micafungin Sodium 100 mg/Sodium Chloride 100 ml @ 100 mls/hr DAILY IV 11/02/24 10:00 11/11/24 10:04 100 MLS/HR Meropenem 50 ml @ 17 mls/hr Q12HR IV 11/03/24 22:00 11/11/24 22:16 17 MLS/HR Acetaminophen/ Hydrocodone Bitart 1 tab Q4HPRN PRN PO 11/06/24 09:15 Enteral Nutritional Formula 1,000 ml 50ML/HR GT 11/06/24 09:30 Metoprolol Tartrate 50 mg BID GT 11/10/24 10:00 11/11/24 22:17 50 MG Metoclopramide HCl 5 mg Q8HR GT 11/11/24 14:00 11/11/24 23:42 5 MG Lactulose 30 ml DAILY JT 11/11/24 10:00 11/11/24 17:07 30 ML Sodium Chloride 1,000 ml @ 75 mls/hr [id number] IV 11/11/24 09:15 11/11/24 10:06 75 MLS/HR Amlodipine Besylate 10 mg DAILY GT 11/11/24 10:00 11/11/24 10:05 10 MG Purified Water 200 ml Q6HR GT 11/12/24 12:00 Laboratory Results Laboratory Tests 11/12/24 02:40 Chemistry Test 11/12/24 02:40 Albumin 3.0 g/dL (3.2-4.8) L Calcium Level 8.3 mg/dL (8.7-10.4) L Total Protein 7.5 g/dL (5.7-8.2) LFT Test 11/12/24 02:40 Alanine Aminotransferase (ALT) 43 U/L (7-40) H Alkaline Phosphatase 233 U/L (46-116) H Aspartate Amino Transferase (AST) 58 U/L (<34) H Total Bilirubin 1.5 mg/dL (0.2-1.0) H Urinalysis Test 10/05/24 15:05 10/26/24 20:33 11/07/24 12:40 Urine Mucus Few (None Seen) Urine Color Light-yellow (Yellow) Urine Clarity Clear (Clear) Urine pH 7.0 (5.0-9.0) Urine Specific [place] 1.014 (1.001-1.035) Urine Protein 1+ (Negative) H Urine Ketones Negative (Negative) Urine Blood 1+ /uL (Negative) H Urine Nitrite Negative (Negative) Urine Bilirubin Negative (Negative) Urine Urobilinogen Normal mg/dL (Negative) Urine Leukocyte Esterase Negative /uL (Negative) Urine RBC 1 /hpf (0 - 3) Urine Microscopic WBC 3 /HPF (0-3) Urine Squamous Epithelial Cells None seen /hpf (<5) Urine Bacteria Few /hpf (None Seen) H Urine Glucose Normal mg/dL (Normal) Urine Creatinine 64.63 mg/dL (30.0-125.0) Urine Protein/Creatinine Ratio 3.11 Urine Sodium 34 mmol/L (40-220) L Urine Total Protein 200.7 mg/dL (1-14) H Microbiology Microbiology Date/Time Source Procedure Growth Status 11/10/24 19:36 Blood Blood Culture - Preliminary NO GROWTH AFTER 24 HOURS OF INCUBATION. Resulted 10/31/24 21:00 Voided Urine Urine Culture - Final Complete 10/18/24 09:21 Pleural Fluid Gram Stain - Final Complete 10/18/24 09:21 Pleural Fluid Body Fluid Culture - Final Complete 10/16/24 12:05 Bronchial Washings Gram Stain - Final Complete 10/16/24 12:05 Bronchial Washings Respiratory Culture - Final Complete 10/04/24 17:10 Nose MRSA Screen - Final Complete Labs and/or images reviewed: Labs reviewed by me, Image(s) reviewed by me Assessment/Plan Assessment/Plan Impression: -severe septic shock -pneumoperitoneum secondary to perforated gastric ulcer -acute kidney injury, hemodynamically mediated, probable VMN -acute hypoxic respiratory failure -shock liver -nicotine dependence -history of CVA -right upper extremity DVT -multifocal pneumonia, probable Gram-positive/Gram-negative etiology -anemia secondary to nutrition, renal failure -bilateral pleural effusions -small left pneumothorax -Failure of ventilator weaning, status post tracheostomy -fungemia Plan: Events: Hypernatremic. HIDA scan performed. -Free water -increase antihypertensives -Surgical consult for Cholecystectomy -GI consultation: Discussed case. -increase tube feeding to 50 mL/hour as tolerated -increase metoprolol tartrate to 50 mg p.o. b.i.d. -antibiotic therapy: Meropenem, micafungin -nephrology consultation: Daily assessment for hemodialysis -repeat labs, chest x-ray, ABG in a.m. Critical care time spent with patient discussing and formulating plan of care: 40 minutes. This does not include time spent performing procedures. This medical document was created using an electronic medical record system with [employer] system. Although this document has been carefully reviewed, there may still be some phonetic and typographical errors. These areas are purely typographical due to imperfections of the software programs, and do not reflect any compromise in the patient's medical care. Plan discussed with: Patient, Other (RN) My Orders Orders - CHEYENNE PIKE NP Procedure Category Date Status Time Free Water PHA 11/12/24 In Process 12:00 Date of Service: Nov 12, 2024 Billing Provider: CHEYENNE PIKE NP Common Visit Codes: 22381-[facility] 30-74 MIN CHEYENNE PIKE NP Nov 12, 2024 09:39
--- NOTE | 2024-11-12 10:06 | DVHPN2 ---
Progress Note - Dictate Date Seen: Nov 12, 2024 Has the PT tested + for MRSA If YES, has PT been informed?: No Medical Necessity Reason Pt with a Central, PICC or Fol: No The following are medically ne: Central Line, Gómez Catheter Reason for gómez catheter: Strict I&O Subjective Mr. Perez is a 48 years old right-handed gentleman with a history of hypertension, dyslipidemia, multiple strokes, he was brought to the [facility] on 10/04/2024 with a chief company of recurrent syncope, in the hospital, the patient was found to have perforated viscus, and he went through surgical treatment, he was hospital course has been complicated with sepsis, septic shock, pneumonia, right upper extremity DVT. I saw him on 08/23/2023 for TIA I have seen and examined the patient, discussed with his nurse. He is doing better, stronger, follow commands, he was not on vent last night. Left shoulder weakness has no improvement No abdominal pain T-max: 99.2 Blood culture, Urinalysis, 08/22/2023: Unremarkable UDS, 08/22/2023: Negative WBC/Hb/PLT'/MCV, 08/22/2023: 10.8/13.1/184/87.4, 10/28/2024: 15/8/487/89.3 10/31/2024: 24.3/9.1/77/88.4 Troponin 1 high-sensitivity, 08/22/2023: 336, 273/300 BUNs/CR, 08/22/2023: 15/1.45 10/31/2024: Two 9/2.42 GFR, 08/22/2023: 59 Liver function test, 10/04/2024: Unremarkable TBI/AST/ALT/AP, 10/04/2024: 0.6/410/335/31, 10/05/2024: 1.3/582/423/39, 10/31/2024: 3.6/54/98/117 TG/CHO L/LDL/HDL, 08/2023: 136/166/111/39 TSH, 08/23/2023: 4.25 Extremity venous study, right arm, 11/09/2024: Thrombus is seen in the cephalic vein in the forearm. DONAL, 08/23/2023: 1. No evidence of intracardiac source of embolus in the study conducted today. 2. Normal valves without significant masses or change vegetations were discernible. 3. No evidence of intra-atrial shunting by bubble study and color Doppler. 4. Mild atherosclerotic plaquing was visualized in the arch of the aorta without evidence of dissection in the visualized part CT head, 10/24/2024: 1. No intracranial hemorrhage or mass effect. 2. Knip-dz-hmiglzmw chronic microvascular ischemic changes. 3. Old bilateral basal ganglia lacunar infarcts. 4. Small bilateral mastoid effusions. CT abdomen/pelvis, 10/04/2024: 1. Extensive intra-abdominal free air concerning for perforated viscus. Surgical consultation is recommended. 2. Enteritis is seen in multiple loops of small bowel in the left hemiabdomen. 3. Moderate abdominopelvic ascites. 4. Small right pleural effusion. CTA neck, head, 08/22/2023:1. CTA head demonstrates no evidence of large vessel occlusion, aneurysm, or significant stenosis. 2. CTA neck demonstrates no evidence of carotid or vertebral dissection or significant stenosis. 3. No noncontrast CT head was performed. 4. Additional findings as detailed above MRI head, 08/23/2023: No acute infarct, intracranial hemorrhage, mass effect, or hydrocephalus. Moderate periventricular and deep subcortical white matter T2 hyperintensities which are nonspecific, but most likely related to sequela of chronic microvascular ischemic changes (I have reviewed the MRI films with our in-house radiologist, Dr. Black, the patient has bilateral multiple subacute/chronic infarcts) MRI head, 11/01/2024: No acute cerebrovascular ischemia. Hthp-wz-whnzxadx chronic microvascular ischemic changes. Bilateral mastoid effusions. Old bilateral basal ganglia / lopes radiata infarcts. vital signs Vital Sign Date Time Temp Pulse Resp B/P (MAP) Pulse Ox O2 Delivery O2 Flow Rate FiO2 11/12/24 09:53 98 177/102 11/12/24 07:30 25 97 11/12/24 06:39 T-piece 8 30 Cool Aerosol 30 11/12/24 04:00 98.0 98.0 Total Intake and Output 11/11/24 11/11/24 11/12/24 15:00 23:00 07:00 Intake Total 666 ml 647 ml 910 ml Output Total 960 ml 1050 ml Balance 666 ml -313 ml -140 ml medications Current Medications Medications Dose Ordered Sig/Wally Route Start Time Stop Time Status Last Admin Dose Admin Ondansetron HCl 4 mg Q4HP PRN IV 10/04/24 11:45 Morphine Sulfate 2 mg Q4HPRN PRN IV 10/04/24 11:45 Cancel Nitroglycerin 0.4 mg Q5MINP PRN SL 10/04/24 11:45 Morphine Sulfate 2 mg Q30M PRN IV 10/04/24 11:45 Cancel Lorazepam 50 mg/ Sodium Chloride 50 ml @ 1 mls/hr Q24H IV 10/04/24 18:15 Cancel Amino Acids 0 ml @ 0 mls/hr PER PHARMACY IV 10/05/24 14:30 UNV Diagnostic Test (Pha) 1 strip Q6HR 10/05/24 18:00 11/12/24 06:49 1 STRIP Insulin Human Regular FOLLOW SLIDING SCALE Q6HR SC 10/05/24 18:00 11/03/24 17:23 2 UNITS Dextrose 50 ml UD IV 10/05/24 14:45 Meropenem 50 ml @ 17 mls/hr Q12HR IV 10/07/24 10:00 UNV Labetalol HCl 10 mg Q2HPRN PRN IV 10/08/24 09:30 11/12/24 08:48 10 MG Levalbuterol HCl 0.625 mg Q6HR NEB 10/13/24 12:00 11/12/24 06:39 0.625 MG Ipratropium [place] 0.5 mg Q6HR NEB 10/13/24 12:00 11/12/24 06:39 0.5 MG Morphine Sulfate 2 mg Q4HPRN PRN IV 10/21/24 11:30 11/10/24 05:15 2 MG Acetaminophen 650 mg Q6HP PRN GT 10/22/24 09:00 11/10/24 08:08 650 MG Metoprolol Tartrate 1.25 mg Q6HPRN PRN IV 10/27/24 09:45 11/10/24 11:20 1.25 MG Sucralfate 1 gm BID@0600,2200 GT 10/28/24 22:00 11/12/24 06:49 1 GM Pantoprazole Sodium 50 ml @ 0 mls/hr Q0M IV 10/28/24 16:15 Cancel Midazolam HCl 1 mg Q2HP PRN IV 10/30/24 16:45 11/03/24 15:29 1 MG Epoetin Roger-epbx 10,000 unit MWF@2100 SC 10/31/24 21:00 11/10/24 22:02 10,000 UNIT Sodium Chloride 10 ml QSHIFT@10,22 IV 10/31/24 22:00 11/11/24 22:17 10 ML Pantoprazole Sodium 80 mg BID IV 10/31/24 22:00 11/12/24 09:35 80 MG Micafungin Sodium 100 mg/Sodium Chloride 100 ml @ 100 mls/hr DAILY IV 11/02/24 10:00 11/12/24 09:37 100 MLS/HR Meropenem 50 ml @ 17 mls/hr Q12HR IV 11/03/24 22:00 11/11/24 22:16 17 MLS/HR Acetaminophen/ Hydrocodone Bitart 1 tab Q4HPRN PRN PO 11/06/24 09:15 Enteral Nutritional Formula 1,000 ml 50ML/HR GT 11/06/24 09:30 Metoprolol Tartrate 50 mg BID GT 11/10/24 10:00 11/12/24 09:38 50 MG Metoclopramide HCl 5 mg Q8HR GT 11/11/24 14:00 11/11/24 23:42 5 MG Lactulose 30 ml DAILY JT 11/11/24 10:00 11/11/24 17:07 30 ML Sodium Chloride 1,000 ml @ 75 mls/hr [id number] IV 11/11/24 09:15 11/11/24 10:06 75 MLS/HR Amlodipine Besylate 10 mg DAILY GT 11/11/24 10:00 11/12/24 09:38 10 MG Purified Water 200 ml Q6HR GT 11/12/24 12:00 objective General: the patient is well developed and nourished. No acute distress. MENTAL STATUS: Subjective SPEECH, LANGUAGE, HIGHER CORTICAL FUNCTION: He does not vocalize/status post tracheostomy. CRANIAL NERVES:Intact visual ansari to confrontation (visual thread). Pupils are equal, round and reactive. EOMs full and conjugate. Mandibular strength intact. Facial muscles symmetrical and strength intact. SENSATION: Sensation to touch and pinprick is unremarkable MOTOR: Normal muscle bulk. No fasciculations. No abnormal movements or posturing. He moves the left arm: 3/5. Except for 1-2/5 in the shoulder. Lt leg: >2/5. Moves the right le-3/5 REFLEXES: Deep tendon reflexes are increased bilaterally, clonus in both knees . No pathological reflexes. CEREBELLAR/COORDINATION: Deferred GAIT/STATION: deferred laboratory and microbiology Laboratory Tests 11/12/24 02:40 Test 11/12/24 02:40 Range/Units Serum Glucose 94 74-106 mg/dL Problem List Altered mental status Metabolic encephalopathy secondary to sepsis, septic shock, pneumonia Hypoxic encephalopathy Viscus perforation status post surgical repair GI bleeding Anemia Fever/ Sepsis/septic shock Respiratory failure S/P tracheostomy Multiple strokes Secondary to history methamphetamine, cocaine, alcohol use History of alcohol abuse History of cocaine, methamphetamine abuse Hyperreflexia secondary to multiple strokes Right upper extremity DVT Assessment/Plan Monitoring Supportive treatment ICU care Stabilize vitals Respiratory suppor Blood culture Follow-up labs IV antibiotics Protonix TPN Quit tobacco smoking No more alcohol, street drug abuse Stroke risk factors discussed GI on case Infectious disease on case Pulmonology on case Hematology on case Nephrology on case More recommended per clinical course This medical document was created using an electronic medical record system with [employer] computerized dictation system. Although this document has been carefully reviewed, there may still be some phonetic and typographical errors. These areas are purely typographical due to imperfections of the software programs, and do not reflect any compromise in the patient's medical care. Prognosis poor Dietary Evaluation Review Comments: 1. Continue TPN to meet at least 75% estimated needs 2. Continue current POC Expected Outcomes/Goals: FU 2-3 days to meet adequate energy & protein within 7 days of NPO Protein Calorie Malnutrition: Severe (rn) Plan discussed with: Other CC Plasma Assessment Blood Product Administration S: [id number] LEANDRO BLACK MD Nov 12, 2024 10:06
--- NOTE | 2024-11-12 11:22 | DVHPNRES ---
Progress Note Date Seen: Nov 12, 2024 Resident Creating Document: SILAS STAHL RESIDENT Has the PT tested + for MRSA If YES, has PT been informed?: No Medical Necessity Reason Pt with a Central, PICC or Fol: No The following are medically ne: Central Line, Gómez Catheter Reason for gómez catheter: Strict I&O Subjective Review of Systems Patient seen and examined at bedside. Patient still on 8 L of oxygen through tracheostomy tube saturating 100%. The patient denies abdominal tenderness to palpation, chest pain or any other associated symptoms. The patient is currently off vasopressors. Last blood cultures performed on 11/10/2024 came back negative so far. We will wait for final results of blood cultures. We recommend to continue antifungal therapy for at least 14 days from the last negative blood culture. Upon my examination, bilateral lung sounds grossly clear, there is no rash at this point and no peripheral edema. Cholecystostomy tube drain is draining 100 cc in the last 12 hours. ROS unable to obtain due to patient's current status tracheostomy tube unable to speak. Objective vital signs Vital Sign Date Time Temp Pulse Resp B/P (MAP) Pulse Ox O2 Delivery O2 Flow Rate FiO2 11/12/24 10:57 93 168/100 11/12/24 10:15 98 T-piece 6.0 11/12/24 10:15 28 28 11/12/24 07:30 25 11/12/24 04:00 98.0 98.0 Total Intake and Output 11/11/24 11/11/24 11/12/24 14:59 22:59 06:59 Intake Total 661 ml 630 ml 1002 ml Output Total 960 ml 1050 ml Balance 661 ml -330 ml -48 ml medications Current Medications Medications Dose Ordered Sig/Wally Route Start Time Stop Time Status Last Admin Dose Admin Ondansetron HCl 4 mg Q4HP PRN IV 10/04/24 11:45 Morphine Sulfate 2 mg Q4HPRN PRN IV 10/04/24 11:45 Cancel Nitroglycerin 0.4 mg Q5MINP PRN SL 10/04/24 11:45 Morphine Sulfate 2 mg Q30M PRN IV 10/04/24 11:45 Cancel Lorazepam 50 mg/ Sodium Chloride 50 ml @ 1 mls/hr Q24H IV 10/04/24 18:15 Cancel Amino Acids 0 ml @ 0 mls/hr PER PHARMACY IV 10/05/24 14:30 UNV Diagnostic Test (Pha) 1 strip Q6HR 10/05/24 18:00 11/12/24 06:49 1 STRIP Insulin Human Regular FOLLOW SLIDING SCALE Q6HR SC 10/05/24 18:00 11/03/24 17:23 2 UNITS Dextrose 50 ml UD IV 10/05/24 14:45 Meropenem 50 ml @ 17 mls/hr Q12HR IV 10/07/24 10:00 UNV Labetalol HCl 10 mg Q2HPRN PRN IV 10/08/24 09:30 11/12/24 08:48 10 MG Levalbuterol HCl 0.625 mg Q6HR NEB 10/13/24 12:00 11/12/24 06:39 0.625 MG Ipratropium [place] 0.5 mg Q6HR NEB 10/13/24 12:00 11/12/24 06:39 0.5 MG Morphine Sulfate 2 mg Q4HPRN PRN IV 10/21/24 11:30 11/10/24 05:15 2 MG Acetaminophen 650 mg Q6HP PRN GT 10/22/24 09:00 11/10/24 08:08 650 MG Metoprolol Tartrate 1.25 mg Q6HPRN PRN IV 10/27/24 09:45 11/10/24 11:20 1.25 MG Sucralfate 1 gm BID@0600,2200 GT 10/28/24 22:00 11/12/24 06:49 1 GM Pantoprazole Sodium 50 ml @ 0 mls/hr Q0M IV 10/28/24 16:15 Cancel Midazolam HCl 1 mg Q2HP PRN IV 10/30/24 16:45 11/03/24 15:29 1 MG Epoetin Roger-epbx 10,000 unit MWF@2100 SC 10/31/24 21:00 11/10/24 22:02 10,000 UNIT Sodium Chloride 10 ml QSHIFT@10,22 IV 10/31/24 22:00 11/12/24 10:57 10 ML Pantoprazole Sodium 80 mg BID IV 10/31/24 22:00 11/12/24 09:35 80 MG Micafungin Sodium 100 mg/Sodium Chloride 100 ml @ 100 mls/hr DAILY IV 11/02/24 10:00 11/12/24 09:37 100 MLS/HR Meropenem 50 ml @ 17 mls/hr Q12HR IV 11/03/24 22:00 11/12/24 10:56 17 MLS/HR Acetaminophen/ Hydrocodone Bitart 1 tab Q4HPRN PRN PO 11/06/24 09:15 Enteral Nutritional Formula 1,000 ml 50ML/HR GT 11/06/24 09:30 Metoprolol Tartrate 50 mg BID GT 11/10/24 10:00 11/12/24 09:38 50 MG Metoclopramide HCl 5 mg Q8HR GT 11/11/24 14:00 11/11/24 23:42 5 MG Lactulose 30 ml DAILY JT 11/11/24 10:00 11/11/24 17:07 30 ML Sodium Chloride 1,000 ml @ 75 mls/hr [id number] IV 11/11/24 09:15 11/11/24 10:06 75 MLS/HR Amlodipine Besylate 10 mg DAILY GT 11/11/24 10:00 11/12/24 09:38 10 MG Purified Water 200 ml Q6HR GT 11/12/24 12:00 Examination Physical Examination General: Patient is alert and oriented but unable to speak and communicate properly due to tracheostomy tube. HEENT: Normocephalic, atraumatic, moist mucous membranes. Tracheostomy tube in place Respiratory/pulmonary: Bilateral lung sounds grossly clear, no significant evidence of crackles or wheezing at this time. Currently on tracheostomy tube at 8 L of oxygen with an FiO2 of 30% Cardiovascular: Normal heart sounds S1 and S2 with no associated murmurs Abdomen: There is no abdominal distention or masses palpable at this time. There is a central incision were exploratory laparotomy was performed. There is a right-sided cholecystostomy tube placed which is draining approximately 100cc in the last 24 hours. there is no rash at this time. Extremities: There is no peripheral edema present at the lower extremities. Skin: No rash at this time. Neurological: Intact cranial nerves with no focal neurologic deficits laboratory and microbiology Laboratory Tests 11/12/24 02:40 Test 11/12/24 02:40 Range/Units Serum Glucose 94 74-106 mg/dL Microbiology Date/Time Source Procedure Growth Status 11/10/24 19:36 Blood Blood Culture - Preliminary NO GROWTH AFTER 24 HOURS OF INCUBATION. Resulted 10/31/24 21:00 Voided Urine Urine Culture - Final Complete 10/18/24 09:21 Pleural Fluid Gram Stain - Final Complete 10/18/24 09:21 Pleural Fluid Body Fluid Culture - Final Complete 10/16/24 12:05 Bronchial Washings Gram Stain - Final Complete 10/16/24 12:05 Bronchial Washings Respiratory Culture - Final Complete 10/04/24 17:10 Nose MRSA Screen - Final Complete Problem List/Assessment/Plan Problem List/Assessment/Plan Assessment/plan Septic shock due to perforated peptic ulcer at the level of the pylorus Status post exploratory laparotomy with repair of large perforated pyloric ulcer GIOVANI due to vasomotor nephropathy likely due to septic shock NSTEMI type 2 likely due to above Severe anemia, possible lower GI bleed Bilateral Multifocal pneumonia Large right-sided pleural effusion, status post chest tube drainage Acute cholecystitis, status post cholecystostomy tube placement Status post tracheostomy Acute fungemia Plan -patient still has intermittent fevers, last fever overnight. -worsening anemia, today hemoglobin was 6.6. 1 unit of red blood cells was transfused. Repeat hemoglobin and hematocrit. Repeat stool occult blood test. -last CT of the abdomen and pelvis, showed contrast passing through the stomach all the way to the intestines. No evidence of free contrast. -surgical consult was placed for possible cholecystectomy -continue IV meropenem and IV micafungin -blood cultures on 10/31/2024 showed growing Milady albicans X2. Last blood cultures on 11/07/2024 showed Gram stain growing budding yeast but no growth in the cultures this point. -we will wait for final reports of blood cultures. -patient is currently on 8 L of oxygen through tracheostomy tube at FiO2 of 30% saturating 100%. -patient is developing small rash in the lower part of the abdomen extending to the upper chest, there is no compromise of upper or lower extremities. Assess for any worsening symptoms of the rash. -all central lines and Devin catheters were removed. Patient is currently on a midline in the left upper arm that was placed yesterday on 11/09/2024 -Gómez catheter was exchanged yesterday and urine cultures were sent -Echocardiogram LVEF 65% with normal valves no vegetations or effusions. -Deescalate meropenem to IV zosyn -Last blood cultures from 11/10/24 are coming negative x2. We recommend continuing antifungal therapy for at least 14 days from last negative cultures. Goals of care were discussed with the at bedside and with the patient for >45min, FULL CODE Plan discussed with Dr. Woodard - ----Addendum Dr. Jessica Woodard --- Patient is a 48 year old male with a past medical history of stroke , hypertension , emphysema. patient was brought in by family due to mental status . Patient was having constipation for several days prior to admission . CT abdomen and pelvis showed a perforated viscus and surgery was consulted . Xlab was done , patient was found to have pepticles for perforation at levels of pylori of about 6 cm . Surgical corrected was performed . 3 catheters were placed and patient was admitted to ICU and put on pressers and IV antibiotics. liver ultrasound showed gallbladder wall thickening and pericolic cystitis edema consistent with acute cholecystitis due to hemodynamic instability . percutaneous cholecystostomy was placed by IR rather than surgical drainage . patient developed multifocal pneumonia and covered by antibiotics and patient underwent thoracentesis as well as chest tube placement . chest tube has been removed , right sided cholecystostomy tube remains in place . patient was trachea on october 27 2024 . Infectious disease was consulted due to blood cultures being persistently positive for peña albakins . patient has been on micafungin and meropenem . Patient is febrile with a T-max of 103 , with worsening anemia . Hemoglobin is 6.6 and received a blood transfusion . Likely the etiology of persistent fungemia include line related as patient has a midline placed white patient was actively fungemic . Would also be concerned about untreated source of bowel leak . endocarditis also remains a small possibility as well Last Ct abdomen and pelvis was done with contrast and showed no evidence of bowel leak 11/11: unable to communicate besides yes and no . on trach collar . 150ccs of cholecystostomy drainage . 11/12: blood cultures came back negative x1 , will need a minimum o f14 days micafungin . remains 8 liters trach collar with ongoing significant drainage through the cholecystostomy tube Plan : - f/u on new blood cultures - continue micafungin - Stop meropenem , start Zosyn - recommend fuly exchange of the urine catheter - remove midline if able , other funes would repeat blood cultures and follow along to see if fungemia clears on its own - recommend TTE to ruleout endocarditis - avoid unnecessary TPN and steroid use Authorized and Performed by: Jessica Woodard Total critical care time: Approximately 76 minutes Due to a high probability of clinically significant, life threatening deterioration, the patient required my highest level of preparedness to intervene emergently and I personally spent this critical care time directly and personally managing the patient. This critical care time included obtaining a history; examining the patient; pulse oximetry; ordering and review of studies; arranging urgent treatment with development of a management plan; evaluation of patient's response to treatment; frequent reassessment; and, discussions with other providers. This critical care time was performed to assess and manage the high probability of imminent, life-threatening deterioration that could result in multi-organ failure. It was exclusive of separately billable procedures and treating other patients and teaching time. Agree with assessment , plan , subjective , physical exam and other findings written above by Dr. MARLEY Plan discussed with: Patient, Other Dietary Evaluation Review Comments: 1. Continue TPN to meet at least 75% estimated needs 2. Continue current POC Expected Outcomes/Goals: FU 2-3 days to meet adequate energy & protein within 7 days of NPO Protein Calorie Malnutrition: Severe (rn) CC Plasma Assessment Blood Product Administration S: [id number] SILAS STAHL RESIDENT Nov 12, 2024 11:22 JESSICA WOODARD MD Nov 28, 2024 17:32
--- NOTE | 2024-11-12 11:56 | DVHPN2 ---
Progress Note Date Seen: Nov 12, 2024 Has the PT tested + for MRSA If YES, has PT been informed?: No Medical Necessity Reason Pt with a Central, PICC or Fol: No The following are medically ne: Central Line, Gómez Catheter Reason for gómez catheter: Strict I&O Subjective Patient reports: No new complaints Other Systems: Patient seen and examined by myself today in follow-up, patient with a trach collar Objective vital signs Vital Sign Date Time Temp Pulse Resp B/P (MAP) Pulse Ox O2 Delivery O2 Flow Rate FiO2 11/12/24 11:30 93 27 180/107 (131) 96 11/12/24 10:15 28 11/12/24 10:15 T-piece 6.0 11/12/24 08:00 98.0 98.0 Total Intake and Output 11/11/24 11/11/24 11/12/24 15:00 23:00 07:00 Intake Total 666 ml 647 ml 910 ml Output Total 960 ml 1050 ml Balance 666 ml -313 ml -140 ml medications Current Medications Medications Dose Ordered Sig/Wally Route Start Time Stop Time Status Last Admin Dose Admin Ondansetron HCl 4 mg Q4HP PRN IV 10/04/24 11:45 Morphine Sulfate 2 mg Q4HPRN PRN IV 10/04/24 11:45 Cancel Nitroglycerin 0.4 mg Q5MINP PRN SL 10/04/24 11:45 Morphine Sulfate 2 mg Q30M PRN IV 10/04/24 11:45 Cancel Lorazepam 50 mg/ Sodium Chloride 50 ml @ 1 mls/hr Q24H IV 10/04/24 18:15 Cancel Amino Acids 0 ml @ 0 mls/hr PER PHARMACY IV 10/05/24 14:30 UNV Diagnostic Test (Pha) 1 strip Q6HR 10/05/24 18:00 11/12/24 06:49 1 STRIP Insulin Human Regular FOLLOW SLIDING SCALE Q6HR SC 10/05/24 18:00 11/03/24 17:23 2 UNITS Dextrose 50 ml UD IV 10/05/24 14:45 Meropenem 50 ml @ 17 mls/hr Q12HR IV 10/07/24 10:00 UNV Labetalol HCl 10 mg Q2HPRN PRN IV 10/08/24 09:30 11/12/24 08:48 10 MG Levalbuterol HCl 0.625 mg Q6HR NEB 10/13/24 12:00 11/12/24 06:39 0.625 MG Ipratropium [place] 0.5 mg Q6HR NEB 10/13/24 12:00 11/12/24 06:39 0.5 MG Morphine Sulfate 2 mg Q4HPRN PRN IV 10/21/24 11:30 11/10/24 05:15 2 MG Acetaminophen 650 mg Q6HP PRN GT 10/22/24 09:00 11/10/24 08:08 650 MG Metoprolol Tartrate 1.25 mg Q6HPRN PRN IV 10/27/24 09:45 11/10/24 11:20 1.25 MG Sucralfate 1 gm BID@0600,2200 GT 10/28/24 22:00 11/12/24 06:49 1 GM Pantoprazole Sodium 50 ml @ 0 mls/hr Q0M IV 10/28/24 16:15 Cancel Midazolam HCl 1 mg Q2HP PRN IV 10/30/24 16:45 11/03/24 15:29 1 MG Epoetin Roger-epbx 10,000 unit MWF@2100 SC 10/31/24 21:00 11/10/24 22:02 10,000 UNIT Sodium Chloride 10 ml QSHIFT@10,22 IV 10/31/24 22:00 11/12/24 10:57 10 ML Pantoprazole Sodium 80 mg BID IV 10/31/24 22:00 11/12/24 09:35 80 MG Micafungin Sodium 100 mg/Sodium Chloride 100 ml @ 100 mls/hr DAILY IV 11/02/24 10:00 11/12/24 09:37 100 MLS/HR Acetaminophen/ Hydrocodone Bitart 1 tab Q4HPRN PRN PO 11/06/24 09:15 Enteral Nutritional Formula 1,000 ml 50ML/HR GT 11/06/24 09:30 Metoprolol Tartrate 50 mg BID GT 11/10/24 10:00 11/12/24 09:38 50 MG Metoclopramide HCl 5 mg Q8HR GT 11/11/24 14:00 11/11/24 23:42 5 MG Lactulose 30 ml DAILY JT 11/11/24 10:00 11/11/24 17:07 30 ML Sodium Chloride 1,000 ml @ 75 mls/hr [id number] IV 11/11/24 09:15 11/11/24 10:06 75 MLS/HR Amlodipine Besylate 10 mg DAILY GT 11/11/24 10:00 11/12/24 09:38 10 MG Purified Water 200 ml Q6HR GT 11/12/24 12:00 Meropenem 50 ml @ 17 mls/hr Q12HR IV 11/12/24 22:00 Examination: LUNGS:Normal, CVS:Normal, MSK:Normal laboratory and microbiology Laboratory Tests 11/12/24 02:40 Test 11/12/24 02:40 Range/Units Serum Glucose 94 74-106 mg/dL Microbiology Date/Time Source Procedure Growth Status 11/10/24 22:44 Voided Urine Urine Culture - Preliminary Resulted 11/10/24 19:36 Blood Blood Culture - Preliminary NO GROWTH AFTER 24 HOURS OF INCUBATION. Resulted 10/18/24 09:21 Pleural Fluid Gram Stain - Final Complete 10/18/24 09:21 Pleural Fluid Body Fluid Culture - Final Complete 10/16/24 12:05 Bronchial Washings Gram Stain - Final Complete 10/16/24 12:05 Bronchial Washings Respiratory Culture - Final Complete 10/04/24 17:10 Nose MRSA Screen - Final Complete Problem List/Assessment/Plan Problem List/Assessment/Plan Assessment/Plan Acute kidney injury likely ATN, FeNa ,> 2% requiring intermittent hemodialysis Acute respiratory failure, patient intubated on ventilator Hemodynamic shock acute blood loss anemia Perforated gastric ulcer status post surgery 10/04 Hypernatremia due to dehydration Pneumonia Sepsis Hypomagnesemia Hypokalemia Hypertensive urgency Empyema status post right chest tube Acute blood loss anemia status post PRBC Recommendations Kidney function continues to improve off hemodialysis Increased urine output Hyponatremia appropriately resolved Patient receiving packed red blood cells transfusion Gómez catheter Strict I&Os Change IV to half NS at 75 cc/hour DC vancomycin DC ibuprofen ID consult KCL replacement We will continue to follow Plan discussed with: Patient Dietary Evaluation Review Comments: 1. Continue TPN to meet at least 75% estimated needs 2. Continue current POC Expected Outcomes/Goals: FU 2-3 days to meet adequate energy & protein within 7 days of NPO Protein Calorie Malnutrition: Severe (rn) CC Plasma Assessment Blood Product Administration S: [id number] MILADY ANDERSON MD Nov 12, 2024 11:56
--- NOTE | 2024-11-12 12:20 | DVHPN2 ---
Progress Note Date Seen: Nov 12, 2024 Resident Creating Document: KWASI MILLAN RESIDENT Has the PT tested + for MRSA If YES, has PT been informed?: No Medical Necessity Reason Pt with a Central, PICC or Fol: No The following are medically ne: Central Line, Gómez Catheter Reason for gómez catheter: Strict I&O Subjective Review of Systems Patient was seen today at bedside in ICU No fever overnight Leukocytosis trending down H&H stable Patient's bowel movement today morning Patient on T-piece on trach Blood culture negative so far Replenished for hypokalemia Objective vital signs Vital Sign Date Time Temp Pulse Resp B/P (MAP) Pulse Ox O2 Delivery O2 Flow Rate FiO2 11/12/24 12:11 109 175/112 11/12/24 11:30 27 96 11/12/24 10:15 28 11/12/24 10:15 T-piece 6.0 11/12/24 08:00 98.0 98.0 Total Intake and Output 11/11/24 11/11/24 11/12/24 15:00 23:00 07:00 Intake Total 666 ml 647 ml 910 ml Output Total 960 ml 1050 ml Balance 666 ml -313 ml -140 ml medications Current Medications Medications Dose Ordered Sig/Wally Route Start Time Stop Time Status Last Admin Dose Admin Ondansetron HCl 4 mg Q4HP PRN IV 10/04/24 11:45 Morphine Sulfate 2 mg Q4HPRN PRN IV 10/04/24 11:45 Cancel Nitroglycerin 0.4 mg Q5MINP PRN SL 10/04/24 11:45 Morphine Sulfate 2 mg Q30M PRN IV 10/04/24 11:45 Cancel Lorazepam 50 mg/ Sodium Chloride 50 ml @ 1 mls/hr Q24H IV 10/04/24 18:15 Cancel Amino Acids 0 ml @ 0 mls/hr PER PHARMACY IV 10/05/24 14:30 UNV Diagnostic Test (Pha) 1 strip Q6HR 10/05/24 18:00 11/12/24 06:49 1 STRIP Insulin Human Regular FOLLOW SLIDING SCALE Q6HR SC 10/05/24 18:00 11/03/24 17:23 2 UNITS Dextrose 50 ml UD IV 10/05/24 14:45 Meropenem 50 ml @ 17 mls/hr Q12HR IV 10/07/24 10:00 UNV Labetalol HCl 10 mg Q2HPRN PRN IV 10/08/24 09:30 11/12/24 12:11 10 MG Levalbuterol HCl 0.625 mg Q6HR NEB 10/13/24 12:00 11/12/24 06:39 0.625 MG Ipratropium [place] 0.5 mg Q6HR NEB 10/13/24 12:00 11/12/24 06:39 0.5 MG Morphine Sulfate 2 mg Q4HPRN PRN IV 10/21/24 11:30 11/10/24 05:15 2 MG Acetaminophen 650 mg Q6HP PRN GT 10/22/24 09:00 11/10/24 08:08 650 MG Metoprolol Tartrate 1.25 mg Q6HPRN PRN IV 10/27/24 09:45 11/10/24 11:20 1.25 MG Sucralfate 1 gm BID@0600,2200 GT 10/28/24 22:00 11/12/24 06:49 1 GM Pantoprazole Sodium 50 ml @ 0 mls/hr Q0M IV 10/28/24 16:15 Cancel Midazolam HCl 1 mg Q2HP PRN IV 10/30/24 16:45 11/03/24 15:29 1 MG Epoetin Roger-epbx 10,000 unit MWF@2100 [place] 10/31/24 21:00 11/10/24 22:02 10,000 UNIT Sodium Chloride 10 ml QSHIFT@10,22 IV 10/31/24 22:00 11/12/24 10:57 10 ML Pantoprazole Sodium 80 mg BID IV 10/31/24 22:00 11/12/24 09:35 80 MG Micafungin Sodium 100 mg/Sodium Chloride 100 ml @ 100 mls/hr DAILY IV 11/02/24 10:00 11/12/24 09:37 100 MLS/HR Acetaminophen/ Hydrocodone Bitart 1 tab Q4HPRN PRN PO 11/06/24 09:15 Enteral Nutritional Formula 1,000 ml 50ML/HR GT 11/06/24 09:30 Metoprolol Tartrate 50 mg BID GT 11/10/24 10:00 11/12/24 09:38 50 MG Metoclopramide HCl 5 mg Q8HR GT 11/11/24 14:00 11/11/24 23:42 5 MG Lactulose 30 ml DAILY JT 11/11/24 10:00 11/11/24 17:07 30 ML Sodium Chloride 1,000 ml @ 75 mls/hr [id number] IV 11/11/24 09:15 11/11/24 10:06 75 MLS/HR Amlodipine Besylate 10 mg DAILY GT 11/11/24 10:00 11/12/24 09:38 10 MG Purified Water 200 ml Q6HR GT 11/12/24 12:00 Meropenem 50 ml @ 17 mls/hr Q12HR IV 11/12/24 22:00 laboratory and microbiology Laboratory Tests 11/12/24 02:40 Test 11/12/24 02:40 Range/Units Serum Glucose 94 74-106 mg/dL Microbiology Date/Time Source Procedure Growth Status 11/10/24 22:44 Voided Urine Urine Culture - Preliminary Resulted 11/10/24 19:36 Blood Blood Culture - Preliminary NO GROWTH AFTER 24 HOURS OF INCUBATION. Resulted 10/18/24 09:21 Pleural Fluid Gram Stain - Final Complete 10/18/24 09:21 Pleural Fluid Body Fluid Culture - Final Complete 10/16/24 12:05 Bronchial Washings Gram Stain - Final Complete 10/16/24 12:05 Bronchial Washings Respiratory Culture - Final Complete 10/04/24 17:10 Nose MRSA Screen - Final Complete Problem List/Assessment/Plan Problem List/Assessment/Plan Assessment and plan (1) Cholecystitis (2) TIA (transient ischemic attack) (3) Altered mental status (4) Severe anemia (5) Perforated viscus (6) NSTEMI (non-ST elevated myocardial infarction) (7) GI bleed (8) Septic shock (9) Leukocytosis Events No fever overnight Leukocytosis trending down H&H stable Patient's bowel movement today morning Patient on T-piece on trach Blood culture negative so far Replenished for hypokalemia Repeat stool occult blood test negative Reviewed HIDA scan revealed Failed swallow eval Plan Repeat swallow eval after 2 days Physical therapy Discharge planning Surgery recommendation reviewed and appreciated Cholecystectomy as per surgical consult -as per surgery cholecystectomy can be timed after overall improvement Monitor CBC, BNP Continue IV ppi Protonix Continue current antibiotic Plan discussed with Dr. Chanda Stoddard , nursing staff, Total time spent on patient evaluation, chart review, assessment and plan, discussion discussion >35 minutes Plan discussed with: Patient, Other (RN) My Orders My Orders Orders - KWASI MILLAN Procedure Category Date Status Time Meropenem 1gm Ivpb PHA 11/12/24 In Process (Merrem 1gm/ Ns) 22:00 Dietary Evaluation Review Comments: 1. Continue TPN to meet at least 75% estimated needs 2. Continue current POC Expected Outcomes/Goals: FU 2-3 days to meet adequate energy & protein within 7 days of NPO Protein Calorie Malnutrition: Severe (rn) CC Plasma Assessment Blood Product Administration S: [id number] KWASI MILLAN Nov 12, 2024 12:20
[2024-11-12] MEDS: FREE WATER GT SCH (12:21)
[2024-11-12] MEDS: LABETALOL HCL 200 MG TAB PO ONE (14:21)
--- NOTE | 2024-11-12 18:16 | DVHPN2 ---
Progress Note - Dictate Date Seen: Nov 12, 2024 Has the PT tested + for MRSA If YES, has PT been informed?: No Medical Necessity Reason Pt with a Central, PICC or Fol: No The following are medically ne: Central Line, Gómez Catheter Reason for gómez catheter: Strict I&O vital signs Vital Sign Date Time Temp Pulse Resp B/P (MAP) Pulse Ox O2 Delivery O2 Flow Rate FiO2 11/12/24 17:32 197/100 11/12/24 16:30 95 27 95 11/12/24 16:21 T-piece 8 30 Cool Aerosol 30 11/12/24 16:00 98.6 98.6 Total Intake and Output 11/11/24 11/11/24 11/12/24 14:59 22:59 06:59 Intake Total 661 ml 630 ml 1002 ml Output Total 960 ml 1050 ml Balance 661 ml -330 ml -48 ml medications Current Medications Medications Dose Ordered Sig/Wally Route Start Time Stop Time Status Last Admin Dose Admin Ondansetron HCl 4 mg Q4HP PRN IV 10/04/24 11:45 Morphine Sulfate 2 mg Q4HPRN PRN IV 10/04/24 11:45 Cancel Nitroglycerin 0.4 mg Q5MINP PRN SL 10/04/24 11:45 Morphine Sulfate 2 mg Q30M PRN IV 10/04/24 11:45 Cancel Lorazepam 50 mg/ Sodium Chloride 50 ml @ 1 mls/hr Q24H IV 10/04/24 18:15 Cancel Amino Acids 0 ml @ 0 mls/hr PER PHARMACY IV 10/05/24 14:30 UNV Diagnostic Test (Pha) 1 strip Q6HR 10/05/24 18:00 11/12/24 17:33 1 STRIP Insulin Human Regular FOLLOW SLIDING SCALE Q6HR SC 10/05/24 18:00 11/03/24 17:23 2 UNITS Dextrose 50 ml UD IV 10/05/24 14:45 Meropenem 50 ml @ 17 mls/hr Q12HR IV 10/07/24 10:00 UNV Levalbuterol HCl 0.625 mg Q6HR NEB 10/13/24 12:00 11/12/24 12:18 0.625 MG Ipratropium [place] 0.5 mg Q6HR NEB 10/13/24 12:00 11/12/24 12:18 0.5 MG Morphine Sulfate 2 mg Q4HPRN PRN IV 10/21/24 11:30 11/10/24 05:15 2 MG Acetaminophen 650 mg Q6HP PRN GT 10/22/24 09:00 11/10/24 08:08 650 MG Sucralfate 1 gm BID@0600,2200 GT 10/28/24 22:00 11/12/24 06:49 1 GM Pantoprazole Sodium 50 ml @ 0 mls/hr Q0M IV 10/28/24 16:15 Cancel Midazolam HCl 1 mg Q2HP PRN IV 10/30/24 16:45 11/03/24 15:29 1 MG Epoetin Roger-epbx 10,000 unit MWF@2100 SC 10/31/24 21:00 11/10/24 22:02 10,000 UNIT Sodium Chloride 10 ml QSHIFT@10,22 IV 10/31/24 22:00 11/12/24 10:57 10 ML Pantoprazole Sodium 80 mg BID IV 10/31/24 22:00 11/12/24 09:35 80 MG Micafungin Sodium 100 mg/Sodium Chloride 100 ml @ 100 mls/hr DAILY IV 11/02/24 10:00 11/12/24 09:37 100 MLS/HR Acetaminophen/ Hydrocodone Bitart 1 tab Q4HPRN PRN PO 11/06/24 09:15 Enteral Nutritional Formula 1,000 ml 50ML/HR GT 11/06/24 09:30 Metoclopramide HCl 5 mg Q8HR GT 11/11/24 14:00 11/12/24 14:21 5 MG Lactulose 30 ml DAILY JT 11/11/24 10:00 11/11/24 17:07 30 ML Sodium Chloride 1,000 ml @ 75 mls/hr [id number] IV 11/11/24 09:15 11/12/24 12:24 75 MLS/HR Amlodipine Besylate 10 mg DAILY GT 11/11/24 10:00 11/12/24 09:38 10 MG Purified Water 200 ml Q6HR GT 11/12/24 12:00 11/12/24 17:32 200 ML Meropenem 50 ml @ 17 mls/hr Q12HR IV 11/12/24 22:00 Labetalol HCl 200 mg Q12HR PO 11/12/24 22:00 Hydralazine HCl 50 mg Q12H GT 11/12/24 17:00 11/12/24 17:32 50 MG Labetalol HCl 10 mg Q2HPRN PRN IV 11/12/24 17:00 laboratory and microbiology Laboratory Tests 11/12/24 02:40 Test 11/12/24 02:40 Range/Units Serum Glucose 94 74-106 mg/dL Assessment/Plan Impression Acute hypoxemic respiratory failure S/p tracheostomy Perforated viscus Septic shock Smoker Patient seen and examined in ICU Events S/p tracheostomy Tolerating trache collar No acute events Labs and imaging reviewed ABG reviewed Management Vent support as needed Titrate to maintain sats 90% or above Trache collar follow up with gen sx Continue antibiotics and antifungals F/u cultures Bronchodilators Monitor renal function Monitor electrolytes Supplement as needed HD per nephrology Nutritional support Tube feedings DVT prophylaxis Critical care time 35 minutes Dietary Evaluation Review Comments: 1. Continue TPN to meet at least 75% estimated needs 2. Continue current POC Expected Outcomes/Goals: FU 2-3 days to meet adequate energy & protein within 7 days of NPO Protein Calorie Malnutrition: Severe (rn) Plan discussed with: Spouse CC Plasma Assessment Blood Product Administration S: [id number] VALENTE DEE MD Nov 12, 2024 18:16
[2024-11-12] MEDS: LABETALOL HCL 20 MG/4 ML VL IV PRN (18:36)
[2024-11-12] MEDS: LABETALOL HCL 200 MG TAB PO SCH (21:39)
[2024-11-12] MEDS: PIPERACILLIN-TAZOB 3.375GM 100 ML IV SCH (21:40)
[2024-11-12] MEDS ORDERED: MEROPENEM 1GM IVPB 50 ML IV SCH (22:00)
[2024-11-13] VITALS (57 sets, daily range): BP systolic 148–188; BP diastolic 77–117; PULSE 79–109; RESP 20–97; TEMP 98–98.3; O2SAT 92–100
--- NOTE | 2024-11-13 05:34 | DVH ---
EXAM: XR Chest, 1 View CLINICAL INDICATION: NG tube advancement TECHNIQUE: Frontal view of the chest. COMPARISON: No relevant prior studies available. FINDINGS: LUNGS AND PLEURAL SPACES: Left basilar atelectasis or pneumonia. No pneumothorax. HEART: Unremarkable. No cardiomegaly. MEDIASTINUM: Unremarkable. Normal mediastinal contour. BONES/JOINTS: Unremarkable. No acute fracture. TUBES, LINES AND DEVICES: Tracheostomy tube in satisfactory position. Enteric tube tip cannot be s een but is below the diaphragm. OTHER FINDINGS: Comparison XY CHEST XRAY 1 VIEW on DOS: 11/10/24, XY CHEST PORTABLE on DOS: 11/06/24, XY CHEST PORTABLE on DOS: 11/05/24, XY CHEST PORTABLE on DOS: 11/02/24, XY CHEST PORTABLE on DOS: 11/01. . IMPRESSION: Left basilar atelectasis or pneumonia. HS:Y
--- NOTE | 2024-11-13 07:29 | DVHPN2 ---
Subjective Patient continues to be encephalopathic. Following some commands Reviewed: Care Plan, H&P, Labs, Medications, Previous Orders, Radiology, Other (Consultants) Changes from previous H/P or p: No Changes General: Per HPI Objective Vitals Vital Signs Date Time Temp Pulse Resp B/P (MAP) Pulse Ox O2 Delivery O2 Flow Rate FiO2 11/13/24 06:43 108 175/111 11/13/24 06:30 26 99 11/13/24 06:00 28 11/13/24 06:00 T-piece 5 11/13/24 04:00 98.2 98.2 Intake/Output Intake and Output 11/13/24 07:00 Intake Total 3220 ml Output Total 2295 ml Balance 925 ml Intake Oral 1010 ml IV Total 2050 ml Tube Feeding 160 ml Output Urine Total 2100 ml Drainage Total 195 ml General Appearance: Alert, Oriented X3, Cooperative, mild distress, Other HEENT: Atraumatic, PERRLA Lungs: Clear to auscultation, Normal air movement, Other Cardiovascular: Normal S1, Normal S2, Other Abdomen: Other Extremities: Normal pulses Neuro: Other Skin: Dry, Intact, Wounds, Other Psych/Mental Status: Other Medications Current Medications Medications Dose Ordered Sig/Wally Route Start Time Stop Time Status Last Admin Dose Admin Ondansetron HCl 4 mg Q4HP PRN IV 10/04/24 11:45 Morphine Sulfate 2 mg Q4HPRN PRN IV 10/04/24 11:45 Cancel Nitroglycerin 0.4 mg Q5MINP PRN SL 10/04/24 11:45 Morphine Sulfate 2 mg Q30M PRN IV 10/04/24 11:45 Cancel Lorazepam 50 mg/ Sodium Chloride 50 ml @ 1 mls/hr Q24H IV 10/04/24 18:15 Cancel Amino Acids 0 ml @ 0 mls/hr PER PHARMACY IV 10/05/24 14:30 UNV Diagnostic Test (Pha) 1 strip Q6HR 10/05/24 18:00 11/13/24 06:00 1 STRIP Insulin Human Regular FOLLOW SLIDING SCALE Q6HR SC 10/05/24 18:00 11/03/24 17:23 2 UNITS Dextrose 50 ml UD IV 10/05/24 14:45 Meropenem 50 ml @ 17 mls/hr Q12HR IV 10/07/24 10:00 UNV Levalbuterol HCl 0.625 mg Q6HR NEB 10/13/24 12:00 11/13/24 06:36 0.625 MG Ipratropium [place] 0.5 mg Q6HR NEB 10/13/24 12:00 11/13/24 06:36 0.5 MG Morphine Sulfate 2 mg Q4HPRN PRN IV 10/21/24 11:30 11/10/24 05:15 2 MG Acetaminophen 650 mg Q6HP PRN GT 10/22/24 09:00 11/10/24 08:08 650 MG Sucralfate 1 gm BID@0600,2200 GT 10/28/24 22:00 11/13/24 05:48 1 GM Pantoprazole Sodium 50 ml @ 0 mls/hr Q0M IV 10/28/24 16:15 Cancel Midazolam HCl 1 mg Q2HP PRN IV 10/30/24 16:45 11/03/24 15:29 1 MG Epoetin Roger-epbx 10,000 unit MWF@2100 SC 10/31/24 21:00 11/12/24 21:40 10,000 UNIT Sodium Chloride 10 ml QSHIFT@10,22 IV 10/31/24 22:00 11/12/24 21:40 10 ML Pantoprazole Sodium 80 mg BID IV 10/31/24 22:00 11/12/24 21:39 80 MG Micafungin Sodium 100 mg/Sodium Chloride 100 ml @ 100 mls/hr DAILY IV 11/02/24 10:00 11/12/24 09:37 100 MLS/HR Acetaminophen/ Hydrocodone Bitart 1 tab Q4HPRN PRN PO 11/06/24 09:15 Enteral Nutritional Formula 1,000 ml 50ML/HR GT 11/06/24 09:30 Metoclopramide HCl 5 mg Q8HR GT 11/11/24 14:00 11/13/24 05:48 5 MG Lactulose 30 ml DAILY JT 11/11/24 10:00 11/11/24 17:07 30 ML Sodium Chloride 1,000 ml @ 75 mls/hr [id number] IV 11/11/24 09:15 11/13/24 04:12 75 MLS/HR Amlodipine Besylate 10 mg DAILY GT 11/11/24 10:00 11/12/24 09:38 10 MG Purified Water 200 ml Q6HR GT 11/12/24 12:00 11/13/24 05:50 200 ML Labetalol HCl 10 mg Q2HPRN PRN IV 11/12/24 17:00 11/13/24 06:43 10 MG Piperacillin Sod/ Tazobactam Sod 100 ml @ 25 mls/hr Q8HR IV 11/12/24 22:00 11/13/24 05:48 25 MLS/HR Hydralazine HCl 50 mg Q8HR GT 11/13/24 14:00 Labetalol HCl 300 mg Q12HR PO 11/13/24 10:00 Clonidine HCl 0.1 mg Q7D TD 11/13/24 07:00 Laboratory Results Laboratory Tests 11/12/24 02:40 Urinalysis Test 10/05/24 15:05 10/26/24 20:33 11/07/24 12:40 Urine Mucus Few (None Seen) Urine Color Light-yellow (Yellow) Urine Clarity Clear (Clear) Urine pH 7.0 (5.0-9.0) Urine Specific [place] 1.014 (1.001-1.035) Urine Protein 1+ (Negative) H Urine Ketones Negative (Negative) Urine Blood 1+ /uL (Negative) H Urine Nitrite Negative (Negative) Urine Bilirubin Negative (Negative) Urine Urobilinogen Normal mg/dL (Negative) Urine Leukocyte Esterase Negative /uL (Negative) Urine RBC 1 /hpf (0 - 3) Urine Microscopic WBC 3 /HPF (0-3) Urine Squamous Epithelial Cells None seen /hpf (<5) Urine Bacteria Few /hpf (None Seen) H Urine Glucose Normal mg/dL (Normal) Urine Creatinine 64.63 mg/dL (30.0-125.0) Urine Protein/Creatinine Ratio 3.11 Urine Sodium 34 mmol/L (40-220) L Urine Total Protein 200.7 mg/dL (1-14) H Microbiology Microbiology Date/Time Source Procedure Growth Status 11/10/24 22:44 Voided Urine Urine Culture - Preliminary Resulted 11/10/24 19:36 Blood Blood Culture - Preliminary NO GROWTH AFTER 48 HOURS OF INCUBATION. Resulted 10/18/24 09:21 Pleural Fluid Gram Stain - Final Complete 10/18/24 09:21 Pleural Fluid Body Fluid Culture - Final Complete 10/16/24 12:05 Bronchial Washings Gram Stain - Final Complete 10/16/24 12:05 Bronchial Washings Respiratory Culture - Final Complete 10/04/24 17:10 Nose MRSA Screen - Final Complete Labs and/or images reviewed: Labs reviewed by me, Image(s) reviewed by me Assessment/Plan Assessment/Plan Impression: -severe septic shock -pneumoperitoneum secondary to perforated gastric ulcer -acute kidney injury, hemodynamically mediated, probable VMN -acute hypoxic respiratory failure -shock liver -nicotine dependence -history of CVA -right upper extremity DVT -multifocal pneumonia, probable Gram-positive/Gram-negative etiology -anemia secondary to nutrition, renal failure -bilateral pleural effusions -small left pneumothorax -Failure of ventilator weaning, status post tracheostomy -fungemia Plan: Events: Patient continues to be hypertensive. Increase labetalol to 300 mg twice a day. Increase hydralazine to 50 mg 3 times a day. Amlodipine 10 mg p.o. daily Clonidine patch. Continue IV p.r.n. medication. Patient continues to have high residuals despite being on Reglan. Repeat swallow evaluation pending. Deflate trach cuff, Passy Sam valve if okay with pulmonology. Blood culture with no growth of yeast. Fevers resolved. No plans for cholecystectomy at this time. -Free water -increase antihypertensives -GI consultation: Discussed case. -increase tube feeding to 50 mL/hour as tolerated -antibiotic therapy: Meropenem, micafungin -nephrology consultation: Daily assessment for hemodialysis -repeat labs, chest x-ray, ABG in a.m. Critical care time spent with patient discussing and formulating plan of care: 40 minutes. This does not include time spent performing procedures. This medical document was created using an electronic medical record system with [employer] dictation system. Although this document has been carefully reviewed, there may still be some phonetic and typographical errors. These areas are purely typographical due to imperfections of the software programs, and do not reflect any compromise in the patient's medical care. Plan discussed with: Patient, Other (RN) My Orders Orders - CHEYENNE PIKE NP Procedure Category Date Status Time Free Water PHA 11/12/24 In Process 12:00 Labetalol Hcl PHA 11/12/24 In Process (Labetalol Hcl) 17:00 Chest Portable XY 11/13/24 Resulted 04:17 Basic Metabolic Panel LAB 11/14/24 Verified 05:00 Basic Metabolic Panel LAB 11/15/24 Verified 05:00 Basic Metabolic Panel LAB 11/16/24 Verified 05:00 Basic Metabolic Panel LAB 11/17/24 Verified 05:00 Basic Metabolic Panel LAB 11/13/24 Logged 06:46 Complete Blood Count LAB 11/13/24 Logged 06:46 Complete Blood Count LAB 11/14/24 Verified 05:00 Complete Blood Count LAB 11/15/24 Verified 05:00 Complete Blood Count LAB 11/16/24 Verified 05:00 Complete Blood Count LAB 11/17/24 Verified 05:00 Hydralazine Hcl PHA 11/13/24 In Process Tablet (Apresoline 14:00 Labetalol Hcl Tablet PHA 11/13/24 In Process (Normodyne Tablet) 10:00 Clonidine 0.1mg/24hr PHA 11/13/24 In Process 7day Patc (Catapres 07:[address] 11/13/24 Transmitted 06:56 Communication Order ORDERS 11/13/24 Transmitted 06:56 Date of Service: Nov 13, 2024 Billing Provider: CHEYENNE PIKE NP Common Visit Codes: [id number] INP/OBS CARE(HIGH) CHEYENNE PIKE NP Nov 13, 2024 07:29
[2024-11-13] MEDS: cloNIDine 0.1 mg/24hr 7 DAY PATCH TD SCH (08:35)
[2024-11-13] MEDS: LABETALOL HCL 200 MG TAB PO SCH (10:17)
[2024-11-13 10:18] LABS: Hemoglobin 9.0 g/dL (13.5-17.5); Nucleated Red Blood Cells % 0.1 %
[2024-11-13 10:20] LABS: Hematocrit 27.9 % (41.0-53.0); Mean Corpuscular Hemoglobin 28.2 pg (28.0-32.0); Mean Corpuscular Volume 87.0 fL (80.0-100.0)
--- NOTE | 2024-11-13 10:24 | DVHPN2 ---
Progress Note - Dictate Date Seen: Nov 13, 2024 Has the PT tested + for MRSA If YES, has PT been informed?: No Medical Necessity Reason Pt with a Central, PICC or Fol: No The following are medically ne: Central Line, Gómez Catheter Reason for gómez catheter: Strict I&O Subjective Mr. Perez is a 48 years old right-handed gentleman with a history of hypertension, dyslipidemia, multiple strokes, he was brought to the [facility] on 10/04/2024 with a chief company of recurrent syncope, in the hospital, the patient was found to have perforated viscus, and he went through surgical treatment, he was hospital course has been complicated with sepsis, septic shock, pneumonia, right upper extremity DVT. I saw him on 08/23/2023 for TIA I have seen and examined the patient, discussed with his nurse. He is doing is, follows, Left shoulder weakness has no improvement Afebrile Blood culture, Urinalysis, 08/22/2023: Unremarkable UDS, 08/22/2023: Negative WBC/Hb/PLT'/MCV, 08/22/2023: 10.8/13.1/184/87.4, 10/28/2024: 15/8/487/89.3 10/31/2024: 24.3/9.1/77/88.4 Troponin 1 high-sensitivity, 08/22/2023: 336, 273/300 BUNs/CR, 08/22/2023: 15/1.45 10/31/2024: Two 9/2.42 GFR, 08/22/2023: 59 Liver function test, 10/04/2024: Unremarkable TBI/AST/ALT/AP, 10/04/2024: 0.6/410/335/31, 10/05/2024: 1.3/582/423/39, 10/31/2024: 3.6/54/98/117 TG/CHO L/LDL/HDL, 08/2023: 136/166/111/39 TSH, 08/23/2023: 4.25 Extremity venous study, right arm, 11/09/2024: Thrombus is seen in the cephalic vein in the forearm. DONAL, 08/23/2023: 1. No evidence of intracardiac source of embolus in the study conducted today. 2. Normal valves without significant masses or change vegetations were discernible. 3. No evidence of intra-atrial shunting by bubble study and color Doppler. 4. Mild atherosclerotic plaquing was visualized in the arch of the aorta without evidence of dissection in the visualized part CT head, 10/24/2024: 1. No intracranial hemorrhage or mass effect. 2. Gryt-ft-bonopyoe chronic microvascular ischemic changes. 3. Old bilateral basal ganglia lacunar infarcts. 4. Small bilateral mastoid effusions. CT abdomen/pelvis, 10/04/2024: 1. Extensive intra-abdominal free air concerning for perforated viscus. Surgical consultation is recommended. 2. Enteritis is seen in multiple loops of small bowel in the left hemiabdomen. 3. Moderate abdominopelvic ascites. 4. Small right pleural effusion. CTA neck, head, 08/22/2023:1. CTA head demonstrates no evidence of large vessel occlusion, aneurysm, or significant stenosis. 2. CTA neck demonstrates no evidence of carotid or vertebral dissection or significant stenosis. 3. No noncontrast CT head was performed. 4. Additional findings as detailed above MRI head, 08/23/2023: No acute infarct, intracranial hemorrhage, mass effect, or hydrocephalus. Moderate periventricular and deep subcortical white matter T2 hyperintensities which are nonspecific, but most likely related to sequela of chronic microvascular ischemic changes (I have reviewed the MRI films with our in-house radiologist, Dr. Black, the patient has bilateral multiple subacute/chronic infarcts) MRI head, 11/01/2024: No acute cerebrovascular ischemia. Alkx-or-wqmvvjxu chronic microvascular ischemic changes. Bilateral mastoid effusions. Old bilateral basal ganglia / lopes radiata infarcts. vital signs Vital Sign Date Time Temp Pulse Resp B/P (MAP) Pulse Ox O2 Delivery O2 Flow Rate FiO2 11/13/24 10:17 107 156/103 11/13/24 08:00 23 97 T-piece 8 28 28 11/13/24 04:00 98.2 98.2 Total Intake and Output 11/12/24 11/12/24 11/13/24 14:59 22:59 06:59 Intake Total 850 ml 1310 ml 1160 ml Output Total 1235 ml 1060 ml Balance 850 ml 75 ml 100 ml medications Current Medications Medications Dose Ordered Sig/Wally Route Start Time Stop Time Status Last Admin Dose Admin Ondansetron HCl 4 mg Q4HP PRN IV 10/04/24 11:45 Morphine Sulfate 2 mg Q4HPRN PRN IV 10/04/24 11:45 Cancel Nitroglycerin 0.4 mg Q5MINP PRN SL 10/04/24 11:45 Morphine Sulfate 2 mg Q30M PRN IV 10/04/24 11:45 Cancel Lorazepam 50 mg/ Sodium Chloride 50 ml @ 1 mls/hr Q24H IV 10/04/24 18:15 Cancel Amino Acids 0 ml @ 0 mls/hr PER PHARMACY IV 10/05/24 14:30 UNV Diagnostic Test (Pha) 1 strip Q6HR 10/05/24 18:00 11/13/24 06:00 1 STRIP Insulin Human Regular FOLLOW SLIDING SCALE Q6HR SC 10/05/24 18:00 11/03/24 17:23 2 UNITS Dextrose 50 ml UD IV 10/05/24 14:45 Meropenem 50 ml @ 17 mls/hr Q12HR IV 10/07/24 10:00 UNV Levalbuterol HCl 0.625 mg Q6HR NEB 10/13/24 12:00 11/13/24 06:36 0.625 MG Ipratropium [place] 0.5 mg Q6HR NEB 10/13/24 12:00 11/13/24 06:36 0.5 MG Morphine Sulfate 2 mg Q4HPRN PRN IV 10/21/24 11:30 11/10/24 05:15 2 MG Acetaminophen 650 mg Q6HP PRN GT 10/22/24 09:00 11/10/24 08:08 650 MG Sucralfate 1 gm BID@0600,2200 GT 10/28/24 22:00 11/13/24 05:48 1 GM Pantoprazole Sodium 50 ml @ 0 mls/hr Q0M IV 10/28/24 16:15 Cancel Midazolam HCl 1 mg Q2HP PRN IV 10/30/24 16:45 11/03/24 15:29 1 MG Epoetin Roger-epbx 10,000 unit MWF@2100 SC 10/31/24 21:00 11/12/24 21:40 10,000 UNIT Sodium Chloride 10 ml QSHIFT@ IV 10/31/24 22:00 11/13/24 10:18 10 ML Micafungin Sodium 100 mg/Sodium Chloride 100 ml @ 100 mls/hr DAILY IV 11/02/24 10:00 11/13/24 10:19 100 MLS/HR Acetaminophen/ Hydrocodone Bitart 1 tab Q4HPRN PRN PO 11/06/24 09:15 Enteral Nutritional Formula 1,000 ml 50ML/HR GT 11/06/24 09:30 Lactulose 30 ml DAILY JT 11/11/24 10:00 11/13/24 10:17 30 ML Sodium Chloride 1,000 ml @ 75 mls/hr [id number] IV 11/11/24 09:15 11/13/24 04:12 75 MLS/HR Amlodipine Besylate 10 mg DAILY GT 11/11/24 10:00 11/13/24 10:07 10 MG Purified Water 200 ml Q6HR GT 11/12/24 12:00 11/13/24 05:50 200 ML Labetalol HCl 10 mg Q2HPRN PRN IV 11/12/24 17:00 11/13/24 06:43 10 MG Piperacillin Sod/ Tazobactam Sod 100 ml @ 25 mls/hr Q8HR IV 11/12/24 22:00 11/13/24 05:48 25 MLS/HR Hydralazine HCl 50 mg Q8HR GT 11/13/24 14:00 Labetalol HCl 300 mg Q12HR PO 11/13/24 10:00 11/13/24 10:17 300 MG Clonidine HCl 0.1 mg Q7D TD 11/13/24 07:00 11/13/24 08:35 0.1 MG Pantoprazole Sodium 40 mg BID IV 11/13/24 10:00 UNV Metoclopramide HCl 5 mg Q8HR IV 11/13/24 14:00 UNV objective General: the patient is well developed and nourished. No acute distress. MENTAL STATUS: Subjective SPEECH, LANGUAGE, HIGHER CORTICAL FUNCTION: He does not vocalize/status post tracheostomy. CRANIAL NERVES:Intact visual ansari to confrontation (visual thread). Pupils are equal, round and reactive. EOMs full and conjugate. Mandibular strength intact. Facial muscles symmetrical and strength intact. SENSATION: Sensation to touch and pinprick is unremarkable MOTOR: Normal muscle bulk. No fasciculations. No abnormal movements or posturing. He moves the left arm: 3/5. Except for 1-2/5 in the shoulder. Lt leg: >2/5. Moves the right le-3/5 REFLEXES: Deep tendon reflexes are increased bilaterally, clonus in both knees . No pathological reflexes. CEREBELLAR/COORDINATION: Deferred GAIT/STATION: deferred laboratory and microbiology Laboratory Tests 11/13/24 10:00 Test 11/13/24 10:00 Range/Units Serum Glucose Pending Problem List Altered mental status Metabolic encephalopathy secondary to sepsis, septic shock, pneumonia Hypoxic encephalopathy Viscus perforation status post surgical repair GI bleeding Anemia Fever/ Sepsis/septic shock Respiratory failure S/P tracheostomy Multiple strokes Secondary to history methamphetamine, cocaine, alcohol use History of alcohol abuse History of cocaine, methamphetamine abuse Hyperreflexia secondary to multiple strokes Right upper extremity DVT Assessment/Plan Monitoring Supportive treatment ICU care Stabilize vitals Respiratory suppor Blood culture Follow-up labs IV antibiotics Protonix TPN Quit tobacco smoking No more alcohol, street drug abuse Stroke risk factors discussed GI on case Infectious disease on case Pulmonology on case Hematology on case Nephrology on case More recommended per clinical course This medical document was created using an electronic medical record system with [employer] computerized dictation system. Although this document has been carefully reviewed, there may still be some phonetic and typographical errors. These areas are purely typographical due to imperfections of the software programs, and do not reflect any compromise in the patient's medical care. Prognosis poor Dietary Evaluation Review Comments: 1. Continue TPN to meet at least 75% estimated needs 2. Continue current POC Expected Outcomes/Goals: FU 2-3 days to meet adequate energy & protein within 7 days of NPO Protein Calorie Malnutrition: Severe (rn) Plan discussed with: Other CC Plasma Assessment Blood Product Administration S: [id number] LEANDRO BLACK MD Nov 13, 2024 10:24
[2024-11-13 10:26] LABS: Anion Gap 14 (5-15); Calcium 8.8 mg/dL (8.7-10.4); Carbon Dioxide 22 mmol/L (20-31); Chloride 113 mmol/L (98-107); Potassium 3.2 mmol/L (3.5-5.1); Sodium 149 mmol/L (136-145)
[2024-11-13 10:31] LABS: BUN/Creatinine Ratio 23.4 (10.0-20.0); Glucose 95 mg/dL (74-106)
[2024-11-13 10:32] LABS: Blood Urea Nitrogen 47 mg/dL (9-23)
[2024-11-13] MEDS: PANTOPRAZOLE 40 MG/10 ML VIAL INJ IV SCH (10:47)
--- NOTE | 2024-11-13 11:29 | DVHPNRES ---
Progress Note Date Seen: Nov 13, 2024 Resident Creating Document: SILAS STAHL RESIDENT Has the PT tested + for MRSA If YES, has PT been informed?: No Medical Necessity Reason Pt with a Central, PICC or Fol: No The following are medically ne: Central Line, Gómez Catheter Reason for gómez catheter: Strict I&O Subjective Review of Systems Patient seen and examined at bedside. Patient denies abdominal tenderness, or any type of pain in his body. Patient states that he is feeling well overall. Last urine culture is showing no growth, last two blood cultures are showing no growth at this time. Patient still on 6 L of oxygen through trach tube. Cholecystostomy tube is draining 160 cc in the last 12 hours. Surgeon was at bedside and recommended to keep cholecystostomy tube at this time with no need of surgery. From our side we recommend to continue micafungin for 11 additional days. We yesterday deescalated meropenem to Zosyn since there is no significant microorganism needed to be covered with carbapenems at this time. ROS unable to obtain due to patient not able to communicate verbally due to trach tube and NG tube. Objective vital signs Vital Sign Date Time Temp Pulse Resp B/P (MAP) Pulse Ox O2 Delivery O2 Flow Rate FiO2 11/13/24 10:30 104 29 168/107 (127) 100 11/13/24 10:00 T-piece 6 28 28 11/13/24 04:00 98.2 98.2 Total Intake and Output 11/12/24 11/12/24 11/13/24 15:00 23:00 07:00 Intake Total 825 ml 1310 ml 1085 ml Output Total 1235 ml 1060 ml Balance 825 ml 75 ml 25 ml medications Current Medications Medications Dose Ordered Sig/Wally Route Start Time Stop Time Status Last Admin Dose Admin Ondansetron HCl 4 mg Q4HP PRN IV 10/04/24 11:45 Morphine Sulfate 2 mg Q4HPRN PRN IV 10/04/24 11:45 Cancel Nitroglycerin 0.4 mg Q5MINP PRN SL 10/04/24 11:45 Morphine Sulfate 2 mg Q30M PRN IV 10/04/24 11:45 Cancel Lorazepam 50 mg/ Sodium Chloride 50 ml @ 1 mls/hr Q24H IV 10/04/24 18:15 Cancel Amino Acids 0 ml @ 0 mls/hr PER PHARMACY IV 10/05/24 14:30 UNV Diagnostic Test (Pha) 1 strip Q6HR 10/05/24 18:00 11/13/24 06:00 1 STRIP Insulin Human Regular FOLLOW SLIDING SCALE Q6HR SC 10/05/24 18:00 11/03/24 17:23 2 UNITS Dextrose 50 ml UD IV 10/05/24 14:45 Meropenem 50 ml @ 17 mls/hr Q12HR IV 10/07/24 10:00 UNV Levalbuterol HCl 0.625 mg Q6HR NEB 10/13/24 12:00 11/13/24 06:36 0.625 MG Ipratropium [place] 0.5 mg Q6HR NEB 10/13/24 12:00 11/13/24 06:36 0.5 MG Morphine Sulfate 2 mg Q4HPRN PRN IV 10/21/24 11:30 11/10/24 05:15 2 MG Acetaminophen 650 mg Q6HP PRN GT 10/22/24 09:00 11/10/24 08:08 650 MG Sucralfate 1 gm BID@0600,2200 GT 10/28/24 22:00 11/13/24 05:48 1 GM Pantoprazole Sodium 50 ml @ 0 mls/hr Q0M IV 10/28/24 16:15 Cancel Midazolam HCl 1 mg Q2HP PRN IV 10/30/24 16:45 11/03/24 15:29 1 MG Epoetin Roger-epbx 10,000 unit MWF@2100 SC 10/31/24 21:00 11/12/24 21:40 10,000 UNIT Sodium Chloride 10 ml QSHIFT@10,22 IV 10/31/24 22:00 11/13/24 10:18 10 ML Micafungin Sodium 100 mg/Sodium Chloride 100 ml @ 100 mls/hr DAILY IV 11/02/24 10:00 11/13/24 10:19 100 MLS/HR Acetaminophen/ Hydrocodone Bitart 1 tab Q4HPRN PRN PO 11/06/24 09:15 Enteral Nutritional Formula 1,000 ml 50ML/HR GT 11/06/24 09:30 Lactulose 30 ml DAILY JT 11/11/24 10:00 11/13/24 10:17 30 ML Sodium Chloride 1,000 ml @ 75 mls/hr [id number] IV 11/11/24 09:15 11/13/24 04:12 75 MLS/HR Amlodipine Besylate 10 mg DAILY GT 11/11/24 10:00 11/13/24 10:07 10 MG Purified Water 200 ml Q6HR GT 11/12/24 12:00 11/13/24 05:50 200 ML Labetalol HCl 10 mg Q2HPRN PRN IV 11/12/24 17:00 11/13/24 06:43 10 MG Piperacillin Sod/ Tazobactam Sod 100 ml @ 25 mls/hr Q8HR IV 11/12/24 22:00 11/13/24 05:48 25 MLS/HR Hydralazine HCl 50 mg Q8HR GT 11/13/24 14:00 Labetalol HCl 300 mg Q12HR PO 11/13/24 10:00 11/13/24 10:17 300 MG Clonidine HCl 0.1 mg Q7D TD 11/13/24 07:00 11/13/24 08:35 0.1 MG Pantoprazole Sodium 40 mg BID IV 11/13/24 10:00 11/13/24 10:47 40 MG Metoclopramide HCl 5 mg Q8HR IV 11/13/24 14:00 Examination Physical Examination General: Patient is alert and oriented but unable to speak and communicate properly due to tracheostomy tube. HEENT: Normocephalic, atraumatic, moist mucous membranes. Tracheostomy tube in place Respiratory/pulmonary: Bilateral lung sounds grossly clear, no significant evidence of crackles or wheezing at this time. Currently on tracheostomy tube at 8 L of oxygen with an FiO2 of 30% Cardiovascular: Normal heart sounds S1 and S2 with no associated murmurs Abdomen: There is no abdominal distention or masses palpable at this time. There is a central incision were exploratory laparotomy was performed. There is a right-sided cholecystostomy tube placed which is draining approximately 100cc in the last 24 hours. there is no rash at this time. Extremities: There is no peripheral edema present at the lower extremities. Skin: No rash at this time. Neurological: Intact cranial nerves with no focal neurologic deficits laboratory and microbiology Laboratory Tests 11/13/24 10:00 Test 11/13/24 10:00 Range/Units Serum Glucose 95 74-106 mg/dL Microbiology Date/Time Source Procedure Growth Status 11/10/24 22:44 Voided Urine Urine Culture - Final Complete 11/10/24 19:36 Blood Blood Culture - Preliminary NO GROWTH AFTER 48 HOURS OF INCUBATION. Resulted 10/18/24 09:21 Pleural Fluid Gram Stain - Final Complete 10/18/24 09:21 Pleural Fluid Body Fluid Culture - Final Complete 10/16/24 12:05 Bronchial Washings Gram Stain - Final Complete 10/16/24 12:05 Bronchial Washings Respiratory Culture - Final Complete 10/04/24 17:10 Nose MRSA Screen - Final Complete Problem List/Assessment/Plan Problem List/Assessment/Plan Assessment/plan Septic shock due to perforated peptic ulcer at the level of the pylorus Status post exploratory laparotomy with repair of large perforated pyloric ulcer GIOVANI due to vasomotor nephropathy likely due to septic shock NSTEMI type 2 likely due to above Severe anemia, possible lower GI bleed Bilateral Multifocal pneumonia Large right-sided pleural effusion, status post chest tube drainage Acute cholecystitis, status post cholecystostomy tube placement Status post tracheostomy Acute fungemia Plan -patient still has intermittent fevers, last fever overnight. -worsening anemia, today hemoglobin was 6.6. 1 unit of red blood cells was transfused. Repeat hemoglobin and hematocrit. Repeat stool occult blood test. -last CT of the abdomen and pelvis, showed contrast passing through the stomach all the way to the intestines. No evidence of free contrast. -surgical consult was placed for possible cholecystectomy -continue IV meropenem and IV micafungin -blood cultures on 10/31/2024 showed growing Milady albicans X2. Last blood cultures on 11/07/2024 showed Gram stain growing budding yeast but no growth in the cultures this point. -we will wait for final reports of blood cultures. -patient is currently on 8 L of oxygen through tracheostomy tube at FiO2 of 30% saturating 100%. -patient is developing small rash in the lower part of the abdomen extending to the upper chest, there is no compromise of upper or lower extremities. Assess for any worsening symptoms of the rash. -all central lines and Devin catheters were removed. Patient is currently on a midline in the left upper arm that was placed yesterday on 11/09/2024 -Gómez catheter was exchanged yesterday and urine cultures were sent -Echocardiogram LVEF 65% with normal valves no vegetations or effusions. -Will switch zosyn to ertapenem since it could be once a day through a peripheral -Last blood cultures from 11/10/24 recently showed growing yeast. Will continue antifungal therapy -Remove midline, get a peripheral and after midline removal, then repeat blood cultures. Goals of care were discussed with the at bedside and with the patient for >45min, FULL CODE Plan discussed with Dr. Woodard - ----Addendum Dr. Jessica Woodard --- Patient is a 48 year old male with a past medical history of stroke , hypertension , emphysema. patient was brought in by family due to mental status . Patient was having constipation for several days prior to admission . CT abdomen and pelvis showed a perforated viscus and surgery was consulted . Xlab was done , patient was found to have pepticles for perforation at levels of pylori of about 6 cm . Surgical corrected was performed . 3 catheters were placed and patient was admitted to ICU and put on pressers and IV antibiotics. liver ultrasound showed gallbladder wall thickening and pericolic cystitis edema consistent with acute cholecystitis due to hemodynamic instability . percutaneous cholecystostomy was placed by IR rather than surgical drainage . patient developed multifocal pneumonia and covered by antibiotics and patient underwent thoracentesis as well as chest tube placement . chest tube has been removed , right sided cholecystostomy tube remains in place . patient was trachea on october 27 2024 . Infectious disease was consulted due to blood cultures being persistently positive for peña albakins . patient has been on micafungin and meropenem . Patient is febrile with a T-max of 103 , with worsening anemia . Hemoglobin is 6.6 and received a blood transfusion . Likely the etiology of persistent fungemia include line related as patient has a midline placed white patient was actively fungemic . Would also be concerned about untreated source of bowel leak . endocarditis also remains a small possibility as well Last Ct abdomen and pelvis was done with contrast and showed no evidence of bowel leak 11/11: unable to communicate besides yes and no . on trach collar . 150ccs of cholecystostomy drainage . 11/12: blood cultures came back negative x1 , will need a minimum o f14 days micafungin . remains 8 liters trach collar with ongoing significant drainage through the cholecystostomy tube 11/13: not having abdominal pains . blood cultures were positive for yeast . midline has been removed . TTE is negative Plan : - given lack of midline for Zosyn would do ertapenem - repeat blood cultures after midline is removed - continue micafungin - recommend Gómez exchange of the urine catheter - avoid unnecessary TPN and steroid use Authorized and Performed by: Jessica Woodard Total critical care time: Approximately 76 minutes Due to a high probability of clinically significant, life threatening deterioration, the patient required my highest level of preparedness to intervene emergently and I personally spent this critical care time directly and personally managing the patient. This critical care time included obtaining a history; examining the patient; pulse oximetry; ordering and review of studies; arranging urgent treatment with development of a management plan; evaluation of patient's response to treatment; frequent reassessment; and, discussions with other providers. This critical care time was performed to assess and manage the high probability of imminent, life-threatening deterioration that could result in multi-organ failure. It was exclusive of separately billable procedures and treating other patients and teaching time. Agree with assessment , plan , subjective , physical exam and other findings written above by Dr. MARLEY Plan discussed with: Patient, Other My Orders My Orders Orders - SILAS STAHL Procedure Category Date Status Time Piperacillin-Tazob PHA 11/12/24 In Process 3.375gm (Zosyn 3.375g 22:00 Dietary Evaluation Review Comments: 1. Continue TPN to meet at least 75% estimated needs 2. Continue current POC Expected Outcomes/Goals: FU 2-3 days to meet adequate energy & protein within 7 days of NPO Protein Calorie Malnutrition: Severe (rn) CC Plasma Assessment Blood Product Administration S: [id number] SILAS STAHL RESIDENT Nov 13, 2024 11:29 JESSICA WOODARD MD Nov 28, 2024 17:36
--- NOTE | 2024-11-13 11:45 | DVHPN2 ---
Progress Note Date Seen: Nov 13, 2024 Has the PT tested + for MRSA If YES, has PT been informed?: No Medical Necessity Reason Pt with a Central, PICC or Fol: No The following are medically ne: Central Line, Gómez Catheter Reason for gómez catheter: Strict I&O Objective vital signs Vital Sign Date Time Temp Pulse Resp B/P (MAP) Pulse Ox O2 Delivery O2 Flow Rate FiO2 11/13/24 11:16 98 174/104 11/13/24 10:30 29 100 11/13/24 10:00 T-piece 6 28 28 11/13/24 04:00 98.2 98.2 Total Intake and Output 11/12/24 11/12/24 11/13/24 15:00 23:00 07:00 Intake Total 825 ml 1310 ml 1085 ml Output Total 1235 ml 1060 ml Balance 825 ml 75 ml 25 ml medications Current Medications Medications Dose Ordered Sig/Wally Route Start Time Stop Time Status Last Admin Dose Admin Ondansetron HCl 4 mg Q4HP PRN IV 10/04/24 11:45 Morphine Sulfate 2 mg Q4HPRN PRN IV 10/04/24 11:45 Cancel Nitroglycerin 0.4 mg Q5MINP PRN SL 10/04/24 11:45 Morphine Sulfate 2 mg Q30M PRN IV 10/04/24 11:45 Cancel Lorazepam 50 mg/ Sodium Chloride 50 ml @ 1 mls/hr Q24H IV 10/04/24 18:15 Cancel Amino Acids 0 ml @ 0 mls/hr PER PHARMACY IV 10/05/24 14:30 UNV Diagnostic Test (Pha) 1 strip Q6HR 10/05/24 18:00 11/13/24 11:17 1 STRIP Insulin Human Regular FOLLOW SLIDING SCALE Q6HR SC 10/05/24 18:00 11/03/24 17:23 2 UNITS Dextrose 50 ml UD IV 10/05/24 14:45 Meropenem 50 ml @ 17 mls/hr Q12HR IV 10/07/24 10:00 UNV Levalbuterol HCl 0.625 mg Q6HR NEB 10/13/24 12:00 11/13/24 06:36 0.625 MG Ipratropium [place] 0.5 mg Q6HR NEB 10/13/24 12:00 11/13/24 06:36 0.5 MG Morphine Sulfate 2 mg Q4HPRN PRN IV 10/21/24 11:30 11/10/24 05:15 2 MG Acetaminophen 650 mg Q6HP PRN GT 10/22/24 09:00 11/10/24 08:08 650 MG Sucralfate 1 gm BID@0600,2200 GT 10/28/24 22:00 11/13/24 05:48 1 GM Pantoprazole Sodium 50 ml @ 0 mls/hr Q0M IV 10/28/24 16:15 Cancel Midazolam HCl 1 mg Q2HP PRN IV 10/30/24 16:45 11/03/24 15:29 1 MG Epoetin Roger-epbx 10,000 unit MWF@2100 SC 10/31/24 21:00 11/12/24 21:40 10,000 UNIT Sodium Chloride 10 ml QSHIFT@10,22 IV 10/31/24 22:00 11/13/24 10:18 10 ML Micafungin Sodium 100 mg/Sodium Chloride 100 ml @ 100 mls/hr DAILY IV 11/02/24 10:00 11/13/24 10:19 100 MLS/HR Acetaminophen/ Hydrocodone Bitart 1 tab Q4HPRN PRN PO 11/06/24 09:15 Enteral Nutritional Formula 1,000 ml 50ML/HR GT 11/06/24 09:30 Lactulose 30 ml DAILY JT 11/11/24 10:00 11/13/24 10:17 30 ML Sodium Chloride 1,000 ml @ 75 mls/hr [id number] IV 11/11/24 09:15 11/13/24 04:12 75 MLS/HR Amlodipine Besylate 10 mg DAILY GT 11/11/24 10:00 11/13/24 10:07 10 MG Purified Water 200 ml Q6HR GT 11/12/24 12:00 11/13/24 11:16 200 ML Labetalol HCl 10 mg Q2HPRN PRN IV 11/12/24 17:00 11/13/24 06:43 10 MG Piperacillin Sod/ Tazobactam Sod 100 ml @ 25 mls/hr Q8HR IV 11/12/24 22:00 11/13/24 05:48 25 MLS/HR Hydralazine HCl 50 mg Q8HR GT 11/13/24 14:00 Labetalol HCl 300 mg Q12HR PO 11/13/24 10:00 11/13/24 10:17 300 MG Clonidine HCl 0.1 mg Q7D TD 11/13/24 07:00 11/13/24 08:35 0.1 MG Pantoprazole Sodium 40 mg BID IV 11/13/24 10:00 11/13/24 10:47 40 MG Metoclopramide HCl 5 mg Q8HR IV 11/13/24 14:00 laboratory and microbiology Laboratory Tests 11/13/24 10:00 Test 11/13/24 10:00 Range/Units Serum Glucose 95 74-106 mg/dL Problem List/Assessment/Plan Problem List/Assessment/Plan 10/10/24 patient had exploratory operation with closure of perforated peptic ulceration about 5 days ago, now concern about possible cholecystitis. GB sludge,GB wall thickened and surounding edema,.LFT's elevated. [patient has history of heavy alcohol use(spouse report). LFTs elevation could be due to liver Ds but cholecystostomy is a reasonable next step, will follow with you 10/14/24 patient appears "surgically stable", will get gastrografin UGI prior to resuming gastric feedings 10/16/24 GASTROGRAFGIN UGI POSSIBLY WITH PERSISTENT LEAK FROM REPAIRED PYLORIC PERFORATION, I HAVE ORDERED A CT SCAN FOR CONFIRMATION 10/24/24 clinically unchanged,being weaned off ventilator, abdomen non distended, tolerating tube feedings, having BM's, KWAN drains with minimal clear drainage, drains removed. 10/26/24 large gastric residual volumes, suspect gastroparesis, vent settings acceptable for tracheostomy, planned for tomorrow 10/27/24 post tracheostomy CXR shows tracheostomy in good locaTION ABOVE THE EVELIA, NO EVIDENCE OF PNEUMOTHORAX OR MEDIASTINAL; WIDENING. i HAVE CALLED PATIENT'S 10/28/24 tracheostomy OK,cxr OK,will sign off, please recall if needed 11/07/24 I am requested to perform a cholecystectomy due to suspicion of persistent GB infection and persistent sepsis. The las CT scan of abdomen and pelvis did not show presence of stones in the GB or evidence of cholecystitis. patient's abdomen is non tender, there is a cholecystostomy in place with scant drainage. I will get a CT scan to r/o other etiology of abdominal infection. 11/08/24 CT REVIEWED, ABDOMEN NON TENDER, i DOP NOT THINK HIS GALLBLADDER IS THE SOURCE OF HIS SEPSIS, OPERATION CAN BE TIMED AFTER OVERALL IMPROVEMENT 11/11/24 leukocytosis improved but still with left shift, HIDA scan pending, will follow after HIDA completed 11/13/24 patient gave me the thumbs up signal ,he is feeling well. abdomen non distended, non tender, HIDA scan is indicating no evidence of cholecystitis. the cholecystostomy is draining clear bile. There is no indication top proceed with cholecystectomy at this time, patient should be allowed to fully recover from his current illness and get stronger before considering cholecystectomy. He can come to see me in the office in about 4 to 6 weeksif he continues to improve. come sooner if he is having problems Plan discussed with: Patient, Other Dietary Evaluation Review Comments: 1. Continue TPN to meet at least 75% estimated needs 2. Continue current POC Expected Outcomes/Goals: FU 2-3 days to meet adequate energy & protein within 7 days of NPO Protein Calorie Malnutrition: Severe (rn) LOBO BOSWELL MD Nov 13, 2024 11:45
[2024-11-13] MEDS: POTASSIUM EFFERVESENT TAB 25 MEQ PO ONE (13:07)
[2024-11-13] MEDS: METOCLOPRAMIDE HCL 5MG/ml INJ 2ml VIAL IV SCH (13:57)
--- NOTE | 2024-11-13 14:12 | DVHPN2 ---
Progress Note Date Seen: Nov 13, 2024 Has the PT tested + for MRSA If YES, has PT been informed?: No Medical Necessity Reason Pt with a Central, PICC or Fol: No The following are medically ne: Central Line, Gómez Catheter Reason for gómez catheter: Strict I&O Subjective Patient reports: No new complaints Other Systems: Patient seen and examined by myself today in follow-up Objective vital signs Vital Sign Date Time Temp Pulse Resp B/P (MAP) Pulse Ox O2 Delivery O2 Flow Rate FiO2 11/13/24 13:59 166/108 11/13/24 13:55 80 11/13/24 12:51 26 99 11/13/24 12:42 T-piece 6 N/A Cool Aerosol 11/13/24 04:00 98.2 98.2 Total Intake and Output 11/12/24 11/12/24 11/13/24 15:00 23:00 07:00 Intake Total 825 ml 1310 ml 1085 ml Output Total 1235 ml 1060 ml Balance 825 ml 75 ml 25 ml medications Current Medications Medications Dose Ordered Sig/Awlly Route Start Time Stop Time Status Last Admin Dose Admin Ondansetron HCl 4 mg Q4HP PRN IV 10/04/24 11:45 Morphine Sulfate 2 mg Q4HPRN PRN IV 10/04/24 11:45 Cancel Nitroglycerin 0.4 mg Q5MINP PRN SL 10/04/24 11:45 Morphine Sulfate 2 mg Q30M PRN IV 10/04/24 11:45 Cancel Lorazepam 50 mg/ Sodium Chloride 50 ml @ 1 mls/hr Q24H IV 10/04/24 18:15 Cancel Amino Acids 0 ml @ 0 mls/hr PER PHARMACY IV 10/05/24 14:30 UNV Diagnostic Test (Pha) 1 strip Q6HR 10/05/24 18:00 11/13/24 11:17 1 STRIP Insulin Human Regular FOLLOW SLIDING SCALE Q6HR SC 10/05/24 18:00 11/03/24 17:23 2 UNITS Dextrose 50 ml UD IV 10/05/24 14:45 Meropenem 50 ml @ 17 mls/hr Q12HR IV 10/07/24 10:00 UNV Levalbuterol HCl 0.625 mg Q6HR NEB 10/13/24 12:00 11/13/24 12:37 0.625 MG Ipratropium [place] 0.5 mg Q6HR NEB 10/13/24 12:00 11/13/24 12:37 0.5 MG Morphine Sulfate 2 mg Q4HPRN PRN IV 10/21/24 11:30 11/10/24 05:15 2 MG Acetaminophen 650 mg Q6HP PRN GT 10/22/24 09:00 11/10/24 08:08 650 MG Sucralfate 1 gm BID@0600,2200 GT 10/28/24 22:00 11/13/24 05:48 1 GM Pantoprazole Sodium 50 ml @ 0 mls/hr Q0M IV 10/28/24 16:15 Cancel Midazolam HCl 1 mg Q2HP PRN IV 10/30/24 16:45 11/03/24 15:29 1 MG Epoetin Roger-epbx 10,000 unit MWF@2100 SC 10/31/24 21:00 11/12/24 21:40 10,000 UNIT Sodium Chloride 10 ml QSHIFT@10,22 IV 10/31/24 22:00 11/13/24 10:18 10 ML Micafungin Sodium 100 mg/Sodium Chloride 100 ml @ 100 mls/hr DAILY IV 11/02/24 10:00 11/13/24 10:19 100 MLS/HR Acetaminophen/ Hydrocodone Bitart 1 tab Q4HPRN PRN PO 11/06/24 09:15 Enteral Nutritional Formula 1,000 ml 50ML/HR GT 11/06/24 09:30 Lactulose 30 ml DAILY JT 11/11/24 10:00 11/13/24 10:17 30 ML Sodium Chloride 1,000 ml @ 75 mls/hr [id number] IV 11/11/24 09:15 11/13/24 04:12 75 MLS/HR Amlodipine Besylate 10 mg DAILY GT 11/11/24 10:00 11/13/24 10:07 10 MG Purified Water 200 ml Q6HR GT 11/12/24 12:00 11/13/24 11:16 200 ML Labetalol HCl 10 mg Q2HPRN PRN IV 11/12/24 17:00 11/13/24 13:55 10 MG Piperacillin Sod/ Tazobactam Sod 100 ml @ 25 mls/hr Q8HR IV 11/12/24 22:00 11/13/24 13:57 25 MLS/HR Hydralazine HCl 50 mg Q8HR GT 11/13/24 14:00 11/13/24 13:59 50 MG Labetalol HCl 300 mg Q12HR PO 11/13/24 10:00 11/13/24 10:17 300 MG Clonidine HCl 0.1 mg Q7D TD 11/13/24 07:00 11/13/24 08:35 0.1 MG Pantoprazole Sodium 40 mg BID IV 11/13/24 10:00 11/13/24 10:47 40 MG Metoclopramide HCl 5 mg Q8HR IV 11/13/24 14:00 11/13/24 13:57 5 MG Examination: LUNGS:Normal, CVS:Normal, MSK:Normal laboratory and microbiology Laboratory Tests 11/13/24 10:00 Test 11/13/24 10:00 Range/Units Serum Glucose 95 74-106 mg/dL Microbiology Date/Time Source Procedure Growth Status 11/10/24 22:44 Voided Urine Urine Culture - Final Complete 11/10/24 19:36 Blood Blood Culture - Preliminary Resulted 10/18/24 09:21 Pleural Fluid Gram Stain - Final Complete 10/18/24 09:21 Pleural Fluid Body Fluid Culture - Final Complete 10/16/24 12:05 Bronchial Washings Gram Stain - Final Complete 10/16/24 12:05 Bronchial Washings Respiratory Culture - Final Complete 10/04/24 17:10 Nose MRSA Screen - Final Complete Problem List/Assessment/Plan Problem List/Assessment/Plan Assessment/Plan Acute kidney injury likely ATN, FeNa ,> 2% requiring intermittent hemodialysis Acute respiratory failure, status post trach collar Hemodynamic shock acute blood loss anemia Perforated gastric ulcer status post surgery 10/04 Hypernatremia due to dehydration Pneumonia Sepsis Hypomagnesemia Hypokalemia Hypertensive urgency Empyema status post right chest tube Acute blood loss anemia status post PRBC Recommendations Kidney function continues to improve off hemodialysis Increased urine output Hyponatremia appropriately resolved Patient receiving packed red blood cells transfusion Gómez catheter Strict I&Os Change IV to half NS at 75 cc/hour DC vancomycin DC ibuprofen ID consult KCL replacement We will continue to follow Plan discussed with: Patient Dietary Evaluation Review Comments: 1. Continue TPN to meet at least 75% estimated needs 2. Continue current POC Expected Outcomes/Goals: FU 2-3 days to meet adequate energy & protein within 7 days of NPO Protein Calorie Malnutrition: Severe (rn) CC Plasma Assessment Blood Product Administration S: [id number] MILADY ANDERSON MD Nov 13, 2024 14:12
--- NOTE | 2024-11-13 15:39 | DVHPN2 ---
Progress Note - Dictate Date Seen: Nov 13, 2024 Has the PT tested + for MRSA If YES, has PT been informed?: No Medical Necessity Reason Pt with a Central, PICC or Fol: No The following are medically ne: Central Line, Gómez Catheter Reason for gómez catheter: Strict I&O vital signs Vital Sign Date Time Temp Pulse Resp B/P (MAP) Pulse Ox O2 Delivery O2 Flow Rate FiO2 11/13/24 15:00 98.3 86 23 164/97 (119) 100 98.3 11/13/24 14:00 T-piece 10 16 27 Total Intake and Output 11/12/24 11/12/24 11/13/24 15:00 23:00 07:00 Intake Total 825 ml 1310 ml 1160 ml Output Total 1235 ml 1060 ml Balance 825 ml 75 ml 100 ml medications Current Medications Medications Dose Ordered Sig/Wally Route Start Time Stop Time Status Last Admin Dose Admin Ondansetron HCl 4 mg Q4HP PRN IV 10/04/24 11:45 Morphine Sulfate 2 mg Q4HPRN PRN IV 10/04/24 11:45 Cancel Nitroglycerin 0.4 mg Q5MINP PRN SL 10/04/24 11:45 Morphine Sulfate 2 mg Q30M PRN IV 10/04/24 11:45 Cancel Lorazepam 50 mg/ Sodium Chloride 50 ml @ 1 mls/hr Q24H IV 10/04/24 18:15 Cancel Amino Acids 0 ml @ 0 mls/hr PER PHARMACY IV 10/05/24 14:30 UNV Diagnostic Test (Pha) 1 strip Q6HR 10/05/24 18:00 11/13/24 11:17 1 STRIP Insulin Human Regular FOLLOW SLIDING SCALE Q6HR SC 10/05/24 18:00 11/03/24 17:23 2 UNITS Dextrose 50 ml UD IV 10/05/24 14:45 Meropenem 50 ml @ 17 mls/hr Q12HR IV 10/07/24 10:00 UNV Levalbuterol HCl 0.625 mg Q6HR NEB 10/13/24 12:00 11/13/24 12:37 0.625 MG Ipratropium [place] 0.5 mg Q6HR NEB 10/13/24 12:00 11/13/24 12:37 0.5 MG Morphine Sulfate 2 mg Q4HPRN PRN IV 10/21/24 11:30 11/10/24 05:15 2 MG Acetaminophen 650 mg Q6HP PRN GT 10/22/24 09:00 11/10/24 08:08 650 MG Sucralfate 1 gm BID@0600,2200 GT 10/28/24 22:00 11/13/24 05:48 1 GM Pantoprazole Sodium 50 ml @ 0 mls/hr Q0M IV 10/28/24 16:15 Cancel Midazolam HCl 1 mg Q2HP PRN IV 10/30/24 16:45 11/03/24 15:29 1 MG Epoetin Roger-epbx 10,000 unit MWF@2100 SC 10/31/24 21:00 11/12/24 21:40 10,000 UNIT Sodium Chloride 10 ml QSHIFT@10,22 IV 10/31/24 22:00 11/13/24 10:18 10 ML Micafungin Sodium 100 mg/Sodium Chloride 100 ml @ 100 mls/hr DAILY IV 11/02/24 10:00 11/13/24 10:19 100 MLS/HR Acetaminophen/ Hydrocodone Bitart 1 tab Q4HPRN PRN PO 11/06/24 09:15 Enteral Nutritional Formula 1,000 ml 50ML/HR GT 11/06/24 09:30 Lactulose 30 ml DAILY JT 11/11/24 10:00 11/13/24 10:17 30 ML Sodium Chloride 1,000 ml @ 75 mls/hr [id number] IV 11/11/24 09:15 11/13/24 04:12 75 MLS/HR Amlodipine Besylate 10 mg DAILY GT 11/11/24 10:00 11/13/24 10:07 10 MG Purified Water 200 ml Q6HR GT 11/12/24 12:00 11/13/24 11:16 200 ML Labetalol HCl 10 mg Q2HPRN PRN IV 11/12/24 17:00 11/13/24 13:55 10 MG Piperacillin Sod/ Tazobactam Sod 100 ml @ 25 mls/hr Q8HR IV 11/12/24 22:00 11/13/24 13:57 25 MLS/HR Hydralazine HCl 50 mg Q8HR GT 11/13/24 14:00 11/13/24 13:59 50 MG Labetalol HCl 300 mg Q12HR PO 11/13/24 10:00 11/13/24 10:17 300 MG Clonidine HCl 0.1 mg Q7D TD 11/13/24 07:00 11/13/24 08:35 0.1 MG Pantoprazole Sodium 40 mg BID IV 11/13/24 10:00 11/13/24 10:47 40 MG Metoclopramide HCl 5 mg Q8HR IV 11/13/24 14:00 11/13/24 13:57 5 MG laboratory and microbiology Laboratory Tests 11/13/24 10:00 Test 11/13/24 10:00 Range/Units Serum Glucose 95 74-106 mg/dL Assessment/Plan Impression Acute hypoxemic respiratory failure S/p tracheostomy Perforated viscus Septic shock Smoker Patient seen and examined in ICU Events S/p tracheostomy Tolerating trache collar No acute events Labs and imaging reviewed ABG reviewed Management Vent support as needed Titrate to maintain sats 90% or above Trache collar follow up with gen sx Continue antibiotics and antifungals F/u cultures Bronchodilators Monitor renal function Monitor electrolytes Supplement as needed HD per nephrology Nutritional support Tube feedings DVT prophylaxis Critical care time 35 minutes Dietary Evaluation Review Comments: 1. Continue TPN to meet at least 75% estimated needs 2. Continue current POC Expected Outcomes/Goals: FU 2-3 days to meet adequate energy & protein within 7 days of NPO Protein Calorie Malnutrition: Severe (rn) Plan discussed with: Other (Rn) CC Plasma Assessment Blood Product Administration S: [id number] Date of Service: Nov 13, 2024 Billing Provider: VALENTE DEE MD Common Visit Codes: NOT BILLABLE VALENTE DEE MD Nov 13, 2024 15:39
--- NOTE | 2024-11-13 15:42 | DVHPN2 ---
Progress Note Date Seen: Nov 13, 2024 Resident Creating Document: KWASI MILLAN RESIDENT Has the PT tested + for MRSA If YES, has PT been informed?: No Medical Necessity Reason Pt with a Central, PICC or Fol: No The following are medically ne: Central Line, Gómez Catheter Reason for gómez catheter: Strict I&O Subjective Review of Systems Patient was seen today at bedside No fever overnight H&H stable WBC trending down Hypokalemia replenished Patient was seen by surgery, no plan of doing cholecystectomy at this moment Objective vital signs Vital Sign Date Time Temp Pulse Resp B/P (MAP) Pulse Ox O2 Delivery O2 Flow Rate FiO2 11/13/24 15:00 98.3 86 23 164/97 (119) 100 98.3 11/13/24 14:00 T-piece 10 15 28 Total Intake and Output 11/12/24 11/12/24 11/13/24 15:00 23:00 07:00 Intake Total 825 ml 1310 ml 1160 ml Output Total 1235 ml 1060 ml Balance 825 ml 75 ml 100 ml medications Current Medications Medications Dose Ordered Sig/Wally Route Start Time Stop Time Status Last Admin Dose Admin Ondansetron HCl 4 mg Q4HP PRN IV 10/04/24 11:45 Morphine Sulfate 2 mg Q4HPRN PRN IV 10/04/24 11:45 Cancel Nitroglycerin 0.4 mg Q5MINP PRN SL 10/04/24 11:45 Morphine Sulfate 2 mg Q30M PRN IV 10/04/24 11:45 Cancel Lorazepam 50 mg/ Sodium Chloride 50 ml @ 1 mls/hr Q24H IV 10/04/24 18:15 Cancel Amino Acids 0 ml @ 0 mls/hr PER PHARMACY IV 10/05/24 14:30 UNV Diagnostic Test (Pha) 1 strip Q6HR 10/05/24 18:00 11/13/24 11:17 1 STRIP Insulin Human Regular FOLLOW SLIDING SCALE Q6HR SC 10/05/24 18:00 11/03/24 17:23 2 UNITS Dextrose 50 ml UD IV 10/05/24 14:45 Meropenem 50 ml @ 17 mls/hr Q12HR IV 10/07/24 10:00 UNV Levalbuterol HCl 0.625 mg Q6HR NEB 10/13/24 12:00 11/13/24 12:37 0.625 MG Ipratropium [place] 0.5 mg Q6HR NEB 10/13/24 12:00 11/13/24 12:37 0.5 MG Morphine Sulfate 2 mg Q4HPRN PRN IV 10/21/24 11:30 11/10/24 05:15 2 MG Acetaminophen 650 mg Q6HP PRN GT 10/22/24 09:00 11/10/24 08:08 650 MG Sucralfate 1 gm BID@0600,2200 GT 10/28/24 22:00 11/13/24 05:48 1 GM Pantoprazole Sodium 50 ml @ 0 mls/hr Q0M IV 10/28/24 16:15 Cancel Midazolam HCl 1 mg Q2HP PRN IV 10/30/24 16:45 11/03/24 15:29 1 MG Epoetin Roger-epbx 10,000 unit MWF@2100 SC 10/31/24 21:00 11/12/24 21:40 10,000 UNIT Sodium Chloride 10 ml QSHIFT@10,22 IV 10/31/24 22:00 11/13/24 10:18 10 ML Micafungin Sodium 100 mg/Sodium Chloride 100 ml @ 100 mls/hr DAILY IV 11/02/24 10:00 11/13/24 10:19 100 MLS/HR Acetaminophen/ Hydrocodone Bitart 1 tab Q4HPRN PRN PO 11/06/24 09:15 Enteral Nutritional Formula 1,000 ml 50ML/HR GT 11/06/24 09:30 Lactulose 30 ml DAILY JT 11/11/24 10:00 11/13/24 10:17 30 ML Sodium Chloride 1,000 ml @ 75 mls/hr [id number] IV 11/11/24 09:15 11/13/24 04:12 75 MLS/HR Amlodipine Besylate 10 mg DAILY GT 11/11/24 10:00 11/13/24 10:07 10 MG Purified Water 200 ml Q6HR GT 11/12/24 12:00 11/13/24 11:16 200 ML Labetalol HCl 10 mg Q2HPRN PRN IV 11/12/24 17:00 11/13/24 13:55 10 MG Piperacillin Sod/ Tazobactam Sod 100 ml @ 25 mls/hr Q8HR IV 11/12/24 22:00 11/13/24 13:57 25 MLS/HR Hydralazine HCl 50 mg Q8HR GT 11/13/24 14:00 11/13/24 13:59 50 MG Labetalol HCl 300 mg Q12HR PO 11/13/24 10:00 11/13/24 10:17 300 MG Clonidine HCl 0.1 mg Q7D TD 11/13/24 07:00 11/13/24 08:35 0.1 MG Pantoprazole Sodium 40 mg BID IV 11/13/24 10:00 11/13/24 10:47 40 MG Metoclopramide HCl 5 mg Q8HR IV 11/13/24 14:00 11/13/24 13:57 5 MG laboratory and microbiology Laboratory Tests 11/13/24 10:00 Test 11/13/24 10:00 Range/Units Serum Glucose 95 74-106 mg/dL Microbiology Date/Time Source Procedure Growth Status 11/10/24 22:44 Voided Urine Urine Culture - Final Complete 11/10/24 19:36 Blood Blood Culture - Preliminary Resulted 10/18/24 09:21 Pleural Fluid Gram Stain - Final Complete 10/18/24 09:21 Pleural Fluid Body Fluid Culture - Final Complete 10/16/24 12:05 Bronchial Washings Gram Stain - Final Complete 10/16/24 12:05 Bronchial Washings Respiratory Culture - Final Complete 10/04/24 17:10 Nose MRSA Screen - Final Complete Problem List/Assessment/Plan Problem List/Assessment/Plan Assessment and plan (1) Cholecystitis (2) TIA (transient ischemic attack) (3) Altered mental status (4) Severe anemia (5) Perforated viscus (6) NSTEMI (non-ST elevated myocardial infarction) (7) GI bleeding (8) Septic shock (9) Leukocytosis Events No fever overnight H&H stable WBC trending down Hypokalemia replenished Patient was seen by surgery, no plan of doing cholecystectomy at this moment Pending repeat swallow evaluation high residual volume Serum creatinine trending down Plan Hold tube feeding for now Pending repeat swallow eval Physical therapy Discharge planning Surgery recommendation reviewed and appreciated Cholecystectomy as per surgical consult -as per surgery cholecystectomy can be timed after overall improvement Monitor CBC, BNP Continue IV ppi Protonix Continue current antibiotic Plan discussed with Dr. Chanda Stoddard , nursing staff, Total time spent on patient evaluation, chart review, assessment and plan, discussion discussion >35 minutes Plan discussed with: Patient, Other (RN) My Orders My Orders Orders - KWASI MILLAN Procedure Category Date Status Time Pantoprazole PHA 11/13/24 In Process (Protonix) 10:00 Metoclopramide PHA 11/13/24 In Process Injection (Reglan 14:00 Dietary Evaluation Review Comments: 1. Continue TPN to meet at least 75% estimated needs 2. Continue current POC Expected Outcomes/Goals: FU 2-3 days to meet adequate energy & protein within 7 days of NPO Protein Calorie Malnutrition: Severe (rn) CC Plasma Assessment Blood Product Administration S: [id number] KWASI MILLAN Nov 13, 2024 15:42
--- NOTE | 2024-11-13 20:35 | DVHPN2 ---
Progress Note - Dictate Date Seen: Nov 13, 2024 Has the PT tested + for MRSA If YES, has PT been informed?: No Medical Necessity Reason Pt with a Central, PICC or Fol: No The following are medically ne: Central Line, Gómez Catheter Reason for gómez catheter: Strict I&O vital signs Vital Sign Date Time Temp Pulse Resp B/P (MAP) Pulse Ox O2 Delivery O2 Flow Rate FiO2 11/13/24 18:42 92 26 100 11/13/24 18:33 T-piece 8 30 Cool Aerosol 30 11/13/24 18:30 148/97 (114) 11/13/24 15:00 98.3 98.3 Total Intake and Output 11/12/24 11/12/24 11/13/24 15:00 23:00 07:00 Intake Total 825 ml 1310 ml 1160 ml Output Total 1235 ml 1060 ml Balance 825 ml 75 ml 100 ml medications Current Medications Medications Dose Ordered Sig/Wally Route Start Time Stop Time Status Last Admin Dose Admin Ondansetron HCl 4 mg Q4HP PRN IV 10/04/24 11:45 Morphine Sulfate 2 mg Q4HPRN PRN IV 10/04/24 11:45 Cancel Nitroglycerin 0.4 mg Q5MINP PRN SL 10/04/24 11:45 Morphine Sulfate 2 mg Q30M PRN IV 10/04/24 11:45 Cancel Lorazepam 50 mg/ Sodium Chloride 50 ml @ 1 mls/hr Q24H IV 10/04/24 18:15 Cancel Amino Acids 0 ml @ 0 mls/hr PER PHARMACY IV 10/05/24 14:30 UNV Diagnostic Test (Pha) 1 strip Q6HR 10/05/24 18:00 11/13/24 18:00 1 STRIP Insulin Human Regular FOLLOW SLIDING SCALE Q6HR SC 10/05/24 18:00 11/03/24 17:23 2 UNITS Dextrose 50 ml UD IV 10/05/24 14:45 Meropenem 50 ml @ 17 mls/hr Q12HR IV 10/07/24 10:00 UNV Levalbuterol HCl 0.625 mg Q6HR NEB 10/13/24 12:00 11/13/24 18:34 0.625 MG Ipratropium [place] 0.5 mg Q6HR NEB 10/13/24 12:00 11/13/24 18:34 0.5 MG Morphine Sulfate 2 mg Q4HPRN PRN IV 10/21/24 11:30 11/10/24 05:15 2 MG Acetaminophen 650 mg Q6HP PRN GT 10/22/24 09:00 11/10/24 08:08 650 MG Sucralfate 1 gm BID@0600,2200 GT 10/28/24 22:00 11/13/24 05:48 1 GM Pantoprazole Sodium 50 ml @ 0 mls/hr Q0M IV 10/28/24 16:15 Cancel Midazolam HCl 1 mg Q2HP PRN IV 10/30/24 16:45 11/03/24 15:29 1 MG Epoetin Roger-epbx 10,000 unit MWF@2100 SC 10/31/24 21:00 11/12/24 21:40 10,000 UNIT Sodium Chloride 10 ml QSHIFT@10,22 IV 10/31/24 22:00 11/13/24 10:18 10 ML Micafungin Sodium 100 mg/Sodium Chloride 100 ml @ 100 mls/hr DAILY IV 11/02/24 10:00 11/13/24 10:19 100 MLS/HR Acetaminophen/ Hydrocodone Bitart 1 tab Q4HPRN PRN PO 11/06/24 09:15 Enteral Nutritional Formula 1,000 ml 50ML/HR GT 11/06/24 09:30 Lactulose 30 ml DAILY JT 11/11/24 10:00 11/13/24 10:17 30 ML Sodium Chloride 1,000 ml @ 75 mls/hr [id number] IV 11/11/24 09:15 11/13/24 18:15 75 MLS/HR Amlodipine Besylate 10 mg DAILY GT 11/11/24 10:00 11/13/24 10:07 10 MG Labetalol HCl 10 mg Q2HPRN PRN IV 11/12/24 17:00 11/13/24 16:34 10 MG Hydralazine HCl 50 mg Q8HR GT 11/13/24 14:00 11/13/24 13:59 50 MG Labetalol HCl 300 mg Q12HR PO 11/13/24 10:00 11/13/24 10:17 300 MG Clonidine HCl 0.1 mg Q7D TD 11/13/24 07:00 11/13/24 08:35 0.1 MG Pantoprazole Sodium 40 mg BID IV 11/13/24 10:00 11/13/24 10:47 40 MG Metoclopramide HCl 5 mg Q8HR IV 11/13/24 14:00 11/13/24 13:57 5 MG Ertapenem 1 gm/ Sodium Chloride 50 ml @ 100 mls/hr DAILY IV 11/14/24 10:00 UNV laboratory and microbiology Laboratory Tests 11/13/24 10:00 Test 11/13/24 10:00 Range/Units Serum Glucose 95 74-106 mg/dL Assessment/Plan Impression Acute hypoxemic respiratory failure S/p tracheostomy Perforated viscus Septic shock Smoker Patient seen and examined in ICU Events S/p tracheostomy Tolerating trache collar No distress Labs and imaging reviewed ABG reviewed Management Vent support as needed Titrate to maintain sats 90% or above Trache collar follow up with gen sx Continue antibiotics and antifungals F/u cultures Bronchodilators Monitor renal function Monitor electrolytes Supplement as needed HD per nephrology Nutritional support Tube feedings Okay to downgrade to ANNIE DVT prophylaxis Critical care time 35 minutes Dietary Evaluation Review Comments: 1. Continue TPN to meet at least 75% estimated needs 2. Continue current POC Expected Outcomes/Goals: FU 2-3 days to meet adequate energy & protein within 7 days of NPO Protein Calorie Malnutrition: Severe (rn) Plan discussed with: Patient CC Plasma Assessment Blood Product Administration S: [id number] VALENTE DEE MD Nov 13, 2024 20:35
[2024-11-14] VITALS (58 sets, daily range): BP systolic 120–194; BP diastolic 55–111; PULSE 73–112; RESP 18–35; TEMP 97.9–98.5; O2SAT 89–100
[2024-11-14 09:18] LABS: Hematocrit 27.4 % (41.0-53.0); Hemoglobin 8.9 g/dL (13.5-17.5); Mean Corpuscular Hemoglobin 28.5 pg (28.0-32.0); Mean Corpuscular Volume 87.3 fL (80.0-100.0); Nucleated Red Blood Cells % 0.0 %
[2024-11-14 09:23] LABS: Anion Gap 15 (5-15); Carbon Dioxide 20 mmol/L (20-31)
[2024-11-14 09:24] LABS: Calcium 8.9 mg/dL (8.7-10.4)
[2024-11-14 09:29] LABS: BUN/Creatinine Ratio 21.5 (10.0-20.0); Glucose 81 mg/dL (74-106)
[2024-11-14 09:30] LABS: Blood Urea Nitrogen 41 mg/dL (9-23); Chloride 112 mmol/L (98-107); Potassium 3.2 mmol/L (3.5-5.1); Sodium 147 mmol/L (136-145)
--- NOTE | 2024-11-14 10:13 | DVHPN2 ---
Progress Note Date Seen: Nov 14, 2024 Has the PT tested + for MRSA If YES, has PT been informed?: No Medical Necessity Reason Pt with a Central, PICC or Fol: No The following are medically ne: Central Line, Gómez Catheter Reason for gómez catheter: Strict I&O Objective vital signs Vital Sign Date Time Temp Pulse Resp B/P (MAP) Pulse Ox O2 Delivery O2 Flow Rate FiO2 11/14/24 06:30 98 24 155/90 (111) 99 11/14/24 06:15 T-piece 8 30 Cool Aerosol 30 11/14/24 04:00 98.0 98.0 Total Intake and Output 11/13/24 11/13/24 11/14/24 15:00 23:00 07:00 Intake Total 800 ml 940 ml 585 ml Output Total 695 ml 830 ml Balance 800 ml 245 ml -245 ml medications Current Medications Medications Dose Ordered Sig/Wally Route Start Time Stop Time Status Last Admin Dose Admin Ondansetron HCl 4 mg Q4HP PRN IV 10/04/24 11:45 Morphine Sulfate 2 mg Q4HPRN PRN IV 10/04/24 11:45 Cancel Nitroglycerin 0.4 mg Q5MINP PRN SL 10/04/24 11:45 Morphine Sulfate 2 mg Q30M PRN IV 10/04/24 11:45 Cancel Lorazepam 50 mg/ Sodium Chloride 50 ml @ 1 mls/hr Q24H IV 10/04/24 18:15 Cancel Amino Acids 0 ml @ 0 mls/hr PER PHARMACY IV 10/05/24 14:30 UNV Diagnostic Test (Pha) 1 strip Q6HR 10/05/24 18:00 11/14/24 06:18 1 STRIP Insulin Human Regular FOLLOW SLIDING SCALE Q6HR SC 10/05/24 18:00 11/03/24 17:23 2 UNITS Dextrose 50 ml UD IV 10/05/24 14:45 Meropenem 50 ml @ 17 mls/hr Q12HR IV 10/07/24 10:00 UNV Levalbuterol HCl 0.625 mg Q6HR NEB 10/13/24 12:00 11/14/24 06:15 0.625 MG Ipratropium [place] 0.5 mg Q6HR NEB 10/13/24 12:00 11/14/24 06:15 0.5 MG Morphine Sulfate 2 mg Q4HPRN PRN IV 10/21/24 11:30 11/10/24 05:15 2 MG Acetaminophen 650 mg Q6HP PRN GT 10/22/24 09:00 11/10/24 08:08 650 MG Sucralfate 1 gm BID@0600,2200 GT 10/28/24 22:00 11/14/24 06:17 1 GM Pantoprazole Sodium 50 ml @ 0 mls/hr Q0M IV 10/28/24 16:15 Cancel Midazolam HCl 1 mg Q2HP PRN IV 10/30/24 16:45 11/03/24 15:29 1 MG Epoetin Roger-epbx 10,000 unit MWF@2100 SC 10/31/24 21:00 11/12/24 21:40 10,000 UNIT Sodium Chloride 10 ml QSHIFT@10,22 IV 10/31/24 22:00 11/13/24 22:04 10 ML Micafungin Sodium 100 mg/Sodium Chloride 100 ml @ 100 mls/hr DAILY IV 11/02/24 10:00 11/13/24 10:19 100 MLS/HR Acetaminophen/ Hydrocodone Bitart 1 tab Q4HPRN PRN PO 11/06/24 09:15 Enteral Nutritional Formula 1,000 ml 50ML/HR GT 11/06/24 09:30 Lactulose 30 ml DAILY JT 11/11/24 10:00 11/13/24 10:17 30 ML Sodium Chloride 1,000 ml @ 75 mls/hr [id number] IV 11/11/24 09:15 11/14/24 06:25 75 MLS/HR Amlodipine Besylate 10 mg DAILY GT 11/11/24 10:00 11/13/24 10:07 10 MG Labetalol HCl 10 mg Q2HPRN PRN IV 11/12/24 17:00 11/14/24 04:02 10 MG Hydralazine HCl 50 mg Q8HR GT 11/13/24 14:00 11/14/24 06:17 50 MG Labetalol HCl 300 mg Q12HR PO 11/13/24 10:00 11/13/24 22:03 300 MG Clonidine HCl 0.1 mg Q7D TD 11/13/24 07:00 11/13/24 08:35 0.1 MG Pantoprazole Sodium 40 mg BID IV 11/13/24 10:00 11/13/24 22:02 40 MG Metoclopramide HCl 5 mg Q8HR IV 11/13/24 14:00 11/14/24 06:17 5 MG Ertapenem 1 gm/ Sodium Chloride 50 ml @ 100 mls/hr DAILY IV 11/14/24 10:00 Potassium Chloride 100 ml @ 50 mls/hr Q2H IV 11/14/24 09:45 11/14/24 13:44 laboratory and microbiology Laboratory Tests 11/14/24 08:27 Test 11/14/24 08:27 Range/Units Serum Glucose 81 74-106 mg/dL Problem List/Assessment/Plan Problem List/Assessment/Plan 10/10/24 patient had exploratory operation with closure of perforated peptic ulceration about 5 days ago, now concern about possible cholecystitis. GB sludge,GB wall thickened and surounding edema,.LFT's elevated. [patient has history of heavy alcohol use(spouse report). LFTs elevation could be due to liver Ds but cholecystostomy is a reasonable next step, will follow with you 10/14/24 patient appears "surgically stable", will get gastrografin UGI prior to resuming gastric feedings 10/16/24 GASTROGRAFGIN UGI POSSIBLY WITH PERSISTENT LEAK FROM REPAIRED PYLORIC PERFORATION, I HAVE ORDERED A CT SCAN FOR CONFIRMATION 10/24/24 clinically unchanged,being weaned off ventilator, abdomen non distended, tolerating tube feedings, having BM's, KWAN drains with minimal clear drainage, drains removed. 10/26/24 large gastric residual volumes, suspect gastroparesis, vent settings acceptable for tracheostomy, planned for tomorrow 10/27/24 post tracheostomy CXR shows tracheostomy in good locaTION ABOVE THE EVELIA, NO EVIDENCE OF PNEUMOTHORAX OR MEDIASTINAL; WIDENING. i HAVE CALLED PATIENT'S 10/28/24 tracheostomy OK,cxr OK,will sign off, please recall if needed 11/07/24 I am requested to perform a cholecystectomy due to suspicion of persistent GB infection and persistent sepsis. The las CT scan of abdomen and pelvis did not show presence of stones in the GB or evidence of cholecystitis. patient's abdomen is non tender, there is a cholecystostomy in place with scant drainage. I will get a CT scan to r/o other etiology of abdominal infection. 11/08/24 CT REVIEWED, ABDOMEN NON TENDER, i DOP NOT THINK HIS GALLBLADDER IS THE SOURCE OF HIS SEPSIS, OPERATION CAN BE TIMED AFTER OVERALL IMPROVEMENT 11/11/24 leukocytosis improved but still with left shift, HIDA scan pending, will follow after HIDA completed 11/13/24 patient gave me the thumbs up signal ,he is feeling well. abdomen non distended, non tender, HIDA scan is indicating no evidence of cholecystitis. the cholecystostomy is draining clear bile. There is no indication top proceed with cholecystectomy at this time, patient should be allowed to fully recover from his current illness and get stronger before considering cholecystectomy. He can come to see me in the office in about 4 to 6 weeksif he continues to improve. come sooner if he is having problems 11/14/24 patient remains in the ICU but is "surgically"stable, I will sign off, please recall if needed Plan discussed with: Patient Dietary Evaluation Review Comments: 1. Continue TPN to meet at least 75% estimated needs 2. Continue current POC Expected Outcomes/Goals: FU 2-3 days to meet adequate energy & protein within 7 days of NPO Protein Calorie Malnutrition: Severe (rn) LOBO BOSWELL MD Nov 14, 2024 10:13
[2024-11-14] MEDS: ERTAPENEM SOD INJ 1 GM in SODIUM CHL 0.9% 50 ML IV SCH (10:15)
--- NOTE | 2024-11-14 10:51 | DVHPN2 ---
Subjective The patient is seen and examined at bedside. No change overnight. Reviewed: Care Plan, H&P, Labs, Medications, Previous Orders, Radiology, Other (Consultants) Changes from previous H/P or p: No Changes General: Per HPI Objective Vitals Vital Signs Date Time Temp Pulse Resp B/P (MAP) Pulse Ox O2 Delivery O2 Flow Rate FiO2 11/14/24 10:30 101 28 182/91 (121) 100 11/14/24 08:30 98.5 98.5 11/14/24 06:15 T-piece 8 30 Cool Aerosol 30 Intake/Output Intake and Output 11/14/24 07:00 Intake Total 2325 ml Output Total 1525 ml Balance 800 ml Intake Oral 300 ml IV Total 2025 ml Output Urine Total 1175 ml Drainage Total 350 ml General Appearance: Alert, Oriented X3, Cooperative, mild distress, Other HEENT: Atraumatic, PERRLA Lungs: Clear to auscultation, Normal air movement, Other Cardiovascular: Normal S1, Normal S2, Other Abdomen: Other Extremities: Normal pulses Neuro: Other Skin: Dry, Intact, Wounds, Other Psych/Mental Status: Other Medications Current Medications Medications Dose Ordered Sig/Wally Route Start Time Stop Time Status Last Admin Dose Admin Ondansetron HCl 4 mg Q4HP PRN IV 10/04/24 11:45 Morphine Sulfate 2 mg Q4HPRN PRN IV 10/04/24 11:45 Cancel Nitroglycerin 0.4 mg Q5MINP PRN SL 10/04/24 11:45 Morphine Sulfate 2 mg Q30M PRN IV 10/04/24 11:45 Cancel Lorazepam 50 mg/ Sodium Chloride 50 ml @ 1 mls/hr Q24H IV 10/04/24 18:15 Cancel Amino Acids 0 ml @ 0 mls/hr PER PHARMACY IV 10/05/24 14:30 UNV Diagnostic Test (Pha) 1 strip Q6HR 10/05/24 18:00 11/14/24 06:18 1 STRIP Insulin Human Regular FOLLOW SLIDING SCALE Q6HR SC 10/05/24 18:00 11/03/24 17:23 2 UNITS Dextrose 50 ml UD IV 10/05/24 14:45 Meropenem 50 ml @ 17 mls/hr Q12HR IV 10/07/24 10:00 UNV Levalbuterol HCl 0.625 mg Q6HR NEB 10/13/24 12:00 11/14/24 06:15 0.625 MG Ipratropium [place] 0.5 mg Q6HR NEB 10/13/24 12:00 11/14/24 06:15 0.5 MG Morphine Sulfate 2 mg Q4HPRN PRN IV 10/21/24 11:30 11/10/24 05:15 2 MG Acetaminophen 650 mg Q6HP PRN GT 10/22/24 09:00 11/10/24 08:08 650 MG Sucralfate 1 gm BID@0600,2200 GT 10/28/24 22:00 11/14/24 06:17 1 GM Pantoprazole Sodium 50 ml @ 0 mls/hr Q0M IV 10/28/24 16:15 Cancel Midazolam HCl 1 mg Q2HP PRN IV 10/30/24 16:45 11/03/24 15:29 1 MG Epoetin Roger-epbx 10,000 unit MWF@2100 SC 10/31/24 21:00 11/12/24 21:40 10,000 UNIT Sodium Chloride 10 ml QSHIFT@10,22 IV 10/31/24 22:00 11/13/24 22:04 10 ML Micafungin Sodium 100 mg/Sodium Chloride 100 ml @ 100 mls/hr DAILY IV 11/02/24 10:00 11/13/24 10:19 100 MLS/HR Acetaminophen/ Hydrocodone Bitart 1 tab Q4HPRN PRN PO 11/06/24 09:15 Enteral Nutritional Formula 1,000 ml 50ML/HR GT 11/06/24 09:30 Lactulose 30 ml DAILY JT 11/11/24 10:00 11/13/24 10:17 30 ML Sodium Chloride 1,000 ml @ 75 mls/hr [id number] IV 11/11/24 09:15 11/14/24 06:25 75 MLS/HR Amlodipine Besylate 10 mg DAILY GT 11/11/24 10:00 11/14/24 10:16 10 MG Labetalol HCl 10 mg Q2HPRN PRN IV 11/12/24 17:00 11/14/24 04:02 10 MG Hydralazine HCl 50 mg Q8HR GT 11/13/24 14:00 11/14/24 06:17 50 MG Labetalol HCl 300 mg Q12HR PO 11/13/24 10:00 11/13/24 22:03 300 MG Clonidine HCl 0.1 mg Q7D TD 11/13/24 07:00 11/13/24 08:35 0.1 MG Pantoprazole Sodium 40 mg BID IV 11/13/24 10:00 11/13/24 22:02 40 MG Metoclopramide HCl 5 mg Q8HR IV 11/13/24 14:00 11/14/24 06:17 5 MG Ertapenem 1 gm/ Sodium Chloride 50 ml @ 100 mls/hr DAILY IV 11/14/24 10:00 11/14/24 10:15 100 MLS/HR Potassium Chloride 100 ml @ 50 mls/hr Q2H IV 11/14/24 09:45 11/14/24 13:44 Laboratory Results Laboratory Tests 11/14/24 08:27 Chemistry Test 11/14/24 08:27 Calcium Level 8.9 mg/dL (8.7-10.4) Urinalysis Test 10/05/24 15:05 10/26/24 20:33 11/07/24 12:40 Urine Mucus Few (None Seen) Urine Color Light-yellow (Yellow) Urine Clarity Clear (Clear) Urine pH 7.0 (5.0-9.0) Urine Specific [place] 1.014 (1.001-1.035) Urine Protein 1+ (Negative) H Urine Ketones Negative (Negative) Urine Blood 1+ /uL (Negative) H Urine Nitrite Negative (Negative) Urine Bilirubin Negative (Negative) Urine Urobilinogen Normal mg/dL (Negative) Urine Leukocyte Esterase Negative /uL (Negative) Urine RBC 1 /hpf (0 - 3) Urine Microscopic WBC 3 /HPF (0-3) Urine Squamous Epithelial Cells None seen /hpf (<5) Urine Bacteria Few /hpf (None Seen) H Urine Glucose Normal mg/dL (Normal) Urine Creatinine 64.63 mg/dL (30.0-125.0) Urine Protein/Creatinine Ratio 3.11 Urine Sodium 34 mmol/L (40-220) L Urine Total Protein 200.7 mg/dL (1-14) H Microbiology Microbiology Date/Time Source Procedure Growth Status 11/10/24 22:44 Voided Urine Urine Culture - Final Complete 11/10/24 19:36 Blood Blood Culture - Preliminary Resulted 10/18/24 09:21 Pleural Fluid Gram Stain - Final Complete 10/18/24 09:21 Pleural Fluid Body Fluid Culture - Final Complete 10/16/24 12:05 Bronchial Washings Gram Stain - Final Complete 10/16/24 12:05 Bronchial Washings Respiratory Culture - Final Complete 10/04/24 17:10 Nose MRSA Screen - Final Complete Labs and/or images reviewed: Labs reviewed by me Assessment/Plan Assessment/Plan -severe septic shock -pneumoperitoneum secondary to perforated gastric ulcer -acute kidney injury, hemodynamically mediated, probable VMN -acute hypoxic respiratory failure -shock liver -nicotine dependence -history of CVA -right upper extremity DVT -multifocal pneumonia, probable Gram-positive/Gram-negative etiology -anemia secondary to nutrition, renal failure -bilateral pleural effusions -small left pneumothorax -Failure of ventilator weaning, status post tracheostomy -fungemia Plan: Events: Patient continues to be hypertensive. Continuing labetalol to 300 mg twice a day. Continuing hydralazine to 50 mg 3 times a day. Amlodipine 10 mg p.o. daily Clonidine patch. Continue IV p.r.n. medication. Patient continues to have high residuals despite being on Reglan. Hold tube feeding today because he has 450 residual. Repeat swallow evaluation pending. Deflate trach cuff, [place] valve if okay with pulmonology. Blood culture with no growth of yeast. Fevers resolved. No plans for cholecystectomy at this time. -Free water -increase antihypertensives -GI consultation: Discussed case. -increase tube feeding to 50 mL/hour as tolerated -antibiotic therapy: Meropenem, micafungin -nephrology consultation: Daily assessment for hemodialysis -repeat labs, chest x-ray, ABG in a.m. Critical care time spent with patient discussing and formulating plan of care: 39 minutes. This does not include time spent performing procedures. This medical document was created using an electronic medical record system with [employer] direct computerized dictation system. Although this document has been carefully reviewed, there may still be some phonetic and typographical errors. These areas are purely typographical due to imperfections of the software programs, and do not reflect any compromise in the patient's medical care. Plan discussed with: Patient Date of Service: Nov 14, 2024 Billing Provider: HOLLAND GRANT MD Common Visit Codes: [id number] INP/OBS CARE(HIGH) HOLLAND GRANT MD Nov 14, 2024 10:51
--- NOTE | 2024-11-14 11:14 | DVHPNRES ---
Progress Note Date Seen: Nov 14, 2024 Resident Creating Document: SILAS STAHL RESIDENT Has the PT tested + for MRSA If YES, has PT been informed?: No Medical Necessity Reason Pt with a Central, PICC or Fol: No The following are medically ne: Central Line, Gómez Catheter Reason for gómez catheter: Strict I&O Subjective Review of Systems Patient seen and examined at bedside. Patient nods with his head denying abdominal tenderness, fever/chills, palpitations, chest pain or any other associated symptoms. Yesterday we removed midline from the left arm since the blood cultures were still growing yeast. We will remove left upper arm midline and took blood cultures after midline removal. We placed a peripheral and we switch antibiotics to ertapenem IV which is once a day. We will wait for new blood cultures to come back, meanwhile we will continue same IV antifungal therapy. ROS unable to obtain due to patient's status not able to speak. Objective vital signs Vital Sign Date Time Temp Pulse Resp B/P (MAP) Pulse Ox O2 Delivery O2 Flow Rate FiO2 11/14/24 10:30 101 28 182/91 (121) 100 11/14/24 08:30 98.5 98.5 11/14/24 06:15 T-piece 8 30 Cool Aerosol 30 Total Intake and Output 11/13/24 11/13/24 11/14/24 15:00 23:00 07:00 Intake Total 800 ml 940 ml 585 ml Output Total 695 ml 830 ml Balance 800 ml 245 ml -245 ml medications Current Medications Medications Dose Ordered Sig/Wally Route Start Time Stop Time Status Last Admin Dose Admin Ondansetron HCl 4 mg Q4HP PRN IV 10/04/24 11:45 Morphine Sulfate 2 mg Q4HPRN PRN IV 10/04/24 11:45 Cancel Nitroglycerin 0.4 mg Q5MINP PRN SL 10/04/24 11:45 Morphine Sulfate 2 mg Q30M PRN IV 10/04/24 11:45 Cancel Lorazepam 50 mg/ Sodium Chloride 50 ml @ 1 mls/hr Q24H IV 10/04/24 18:15 Cancel Amino Acids 0 ml @ 0 mls/hr PER PHARMACY IV 10/05/24 14:30 UNV Diagnostic Test (Pha) 1 strip Q6HR 10/05/24 18:00 11/14/24 06:18 1 STRIP Insulin Human Regular FOLLOW SLIDING SCALE Q6HR SC 10/05/24 18:00 11/03/24 17:23 2 UNITS Dextrose 50 ml UD IV 10/05/24 14:45 Meropenem 50 ml @ 17 mls/hr Q12HR IV 10/07/24 10:00 UNV Levalbuterol HCl 0.625 mg Q6HR NEB 10/13/24 12:00 11/14/24 06:15 0.625 MG Ipratropium [place] 0.5 mg Q6HR NEB 10/13/24 12:00 11/14/24 06:15 0.5 MG Morphine Sulfate 2 mg Q4HPRN PRN IV 10/21/24 11:30 11/10/24 05:15 2 MG Acetaminophen 650 mg Q6HP PRN GT 10/22/24 09:00 11/10/24 08:08 650 MG Sucralfate 1 gm BID@0600,2200 GT 10/28/24 22:00 11/14/24 06:17 1 GM Pantoprazole Sodium 50 ml @ 0 mls/hr Q0M IV 10/28/24 16:15 Cancel Midazolam HCl 1 mg Q2HP PRN IV 10/30/24 16:45 11/03/24 15:29 1 MG Epoetin Roger-epbx 10,000 unit MWF@2100 SC 10/31/24 21:00 11/12/24 21:40 10,000 UNIT Sodium Chloride 10 ml QSHIFT@10,22 IV 10/31/24 22:00 11/13/24 22:04 10 ML Micafungin Sodium 100 mg/Sodium Chloride 100 ml @ 100 mls/hr DAILY IV 11/02/24 10:00 11/13/24 10:19 100 MLS/HR Acetaminophen/ Hydrocodone Bitart 1 tab Q4HPRN PRN PO 11/06/24 09:15 Enteral Nutritional Formula 1,000 ml 50ML/HR GT 11/06/24 09:30 Lactulose 30 ml DAILY JT 11/11/24 10:00 11/13/24 10:17 30 ML Sodium Chloride 1,000 ml @ 75 mls/hr [id number] IV 11/11/24 09:15 11/14/24 06:25 75 MLS/HR Amlodipine Besylate 10 mg DAILY GT 11/11/24 10:00 11/14/24 10:16 10 MG Labetalol HCl 10 mg Q2HPRN PRN IV 11/12/24 17:00 11/14/24 04:02 10 MG Hydralazine HCl 50 mg Q8HR GT 11/13/24 14:00 11/14/24 06:17 50 MG Labetalol HCl 300 mg Q12HR PO 11/13/24 10:00 11/13/24 22:03 300 MG Clonidine HCl 0.1 mg Q7D TD 11/13/24 07:00 11/13/24 08:35 0.1 MG Pantoprazole Sodium 40 mg BID IV 11/13/24 10:00 11/13/24 22:02 40 MG Metoclopramide HCl 5 mg Q8HR IV 11/13/24 14:00 11/14/24 06:17 5 MG Ertapenem 1 gm/ Sodium Chloride 50 ml @ 100 mls/hr DAILY IV 11/14/24 10:00 11/14/24 10:15 100 MLS/HR Potassium Chloride 100 ml @ 50 mls/hr Q2H IV 11/14/24 09:45 11/14/24 13:44 Examination Physical Examination General: Patient is alert and oriented but unable to speak and communicate properly due to tracheostomy tube. HEENT: Normocephalic, atraumatic, moist mucous membranes. Tracheostomy tube in place Respiratory/pulmonary: Bilateral lung sounds grossly clear, no significant evidence of crackles or wheezing at this time. Currently on tracheostomy tube at 8 L of oxygen with an FiO2 of 30% Cardiovascular: Normal heart sounds S1 and S2 with no associated murmurs Abdomen: There is no abdominal distention or masses palpable at this time. There is a central incision were exploratory laparotomy was performed. There is a right-sided cholecystostomy tube placed which is draining approximately 100cc in the last 24 hours. there is no rash at this time. Extremities: There is no peripheral edema present at the lower extremities. Skin: No rash at this time. Neurological: Intact cranial nerves with no focal neurologic deficits laboratory and microbiology Laboratory Tests 11/14/24 08:27 Test 11/14/24 08:27 Range/Units Serum Glucose 81 74-106 mg/dL Microbiology Date/Time Source Procedure Growth Status 11/10/24 22:44 Voided Urine Urine Culture - Final Complete 11/10/24 19:36 Blood Blood Culture - Preliminary Resulted 10/18/24 09:21 Pleural Fluid Gram Stain - Final Complete 10/18/24 09:21 Pleural Fluid Body Fluid Culture - Final Complete 10/16/24 12:05 Bronchial Washings Gram Stain - Final Complete 10/16/24 12:05 Bronchial Washings Respiratory Culture - Final Complete 10/04/24 17:10 Nose MRSA Screen - Final Complete Problem List/Assessment/Plan Problem List/Assessment/Plan Assessment/plan Septic shock due to perforated peptic ulcer at the level of the pylorus Status post exploratory laparotomy with repair of large perforated pyloric ulcer GIOVANI due to vasomotor nephropathy likely due to septic shock NSTEMI type 2 likely due to above Severe anemia, possible lower GI bleed Bilateral Multifocal pneumonia Large right-sided pleural effusion, status post chest tube drainage Acute cholecystitis, status post cholecystostomy tube placement Status post tracheostomy Acute fungemia Plan -patient still has intermittent fevers, last fever overnight. -worsening anemia, today hemoglobin was 6.6. 1 unit of red blood cells was transfused. Repeat hemoglobin and hematocrit. Repeat stool occult blood test. -last CT of the abdomen and pelvis, showed contrast passing through the stomach all the way to the intestines. No evidence of free contrast. -surgical consult was placed for possible cholecystectomy -continue IV meropenem and IV micafungin -blood cultures on 10/31/2024 showed growing Milady albicans X2. Last blood cultures on 11/07/2024 showed Gram stain growing budding yeast but no growth in the cultures this point. -we will wait for final reports of blood cultures. -patient is currently on 8 L of oxygen through tracheostomy tube at FiO2 of 30% saturating 100%. -patient is developing small rash in the lower part of the abdomen extending to the upper chest, there is no compromise of upper or lower extremities. Assess for any worsening symptoms of the rash. -all central lines and Devin catheters were removed. Patient is currently on a midline in the left upper arm that was placed yesterday on 11/09/2024 -Gómez catheter was exchanged yesterday and urine cultures were sent -Echocardiogram LVEF 65% with normal valves no vegetations or effusions. -Will switch zosyn to ertapenem since it could be once a day through a peripheral -yesterday we removed left upper arm midline and took new cultures after midline removal. -we will continue current IV antifungal therapy with micafungin until blood cultures are back Goals of care were discussed with the at bedside and with the patient for >45min, FULL CODE Plan discussed with Dr. Woodard -----Addendum Dr. Jessica Woodard --- Patient is a 48 year old male with a past medical history of stroke , hypertension , emphysema. patient was brought in by family due to mental status . Patient was having constipation for several days prior to admission . CT abdomen and pelvis showed a perforated viscus and surgery was consulted . Xlab was done , patient was found to have pepticles for perforation at levels of pylori of about 6 cm . Surgical corrected was performed . 3 catheters were placed and patient was admitted to ICU and put on pressers and IV antibiotics. liver ultrasound showed gallbladder wall thickening and pericolic cystitis edema consistent with acute cholecystitis due to hemodynamic instability . percutaneous cholecystostomy was placed by IR rather than surgical drainage . patient developed multifocal pneumonia and covered by antibiotics and patient underwent thoracentesis as well as chest tube placement . chest tube has been removed , right sided cholecystostomy tube remains in place . patient was trachea on october 27 2024 . Infectious disease was consulted due to blood cultures being persistently positive for peña albakins . patient has been on micafungin and meropenem . Patient is febrile with a T-max of 103 , with worsening anemia . Hemoglobin is 6.6 and received a blood transfusion . Likely the etiology of persistent fungemia include line related as patient has a midline placed white patient was actively fungemic . Would also be concerned about untreated source of bowel leak . endocarditis also remains a small possibility as well Last Ct abdomen and pelvis was done with contrast and showed no evidence of bowel leak 11/11: unable to communicate besides yes and no . on trach collar . 150ccs of cholecystostomy drainage . 11/12: blood cultures came back negative x1 , will need a minimum o f14 days micafungin . remains 8 liters trach collar with ongoing significant drainage through the cholecystostomy tube 11/13: not having abdominal pains . blood cultures were positive for yeast . midline has been removed . TTE is negative 11/14: midline was removed . repeat blood cultures are no growth to date Plan : - continue ertapenem , duration to be determined by drain output as well as any pending surgical plans - repeat blood cultures after midline is removed - continue micafungin for another 14 days - recommend Gómez exchange of the urine catheter - avoid unnecessary TPN and steroid use Authorized and Performed by: Jessica Woodard Total critical care time: Approximately 76 minutes Due to a high probability of clinically significant, life threatening deterioration, the patient required my highest level of preparedness to intervene emergently and I personally spent this critical care time directly and personally managing the patient. This critical care time included obtaining a history; examining the patient; pulse oximetry; ordering and review of studies; arranging urgent treatment with development of a management plan; evaluation of patient's response to treatment; frequent reassessment; and, discussions with other providers. This critical care time was performed to assess and manage the high probability of imminent, life-threatening deterioration that could result in multi-organ failure. It was exclusive of separately billable procedures and treating other patients and teaching time. Agree with assessment , plan , subjective , physical exam and other findings written above by Dr. MARLEY Plan discussed with: Patient My Orders My Orders Orders - SILAS STAHL Procedure Category Date Status Time Ertapenem Sod Inj PHA 11/14/24 In Process (Invanz) 10:00 Blood Culture HOLA 11/14/24 In Process 04:00 Communication Order ORDERS 11/13/24 Transmitted 16:48 Dietary Evaluation Review Comments: 1. Continue TPN to meet at least 75% estimated needs 2. Continue current POC Expected Outcomes/Goals: FU 2-3 days to meet adequate energy & protein within 7 days of NPO Protein Calorie Malnutrition: Severe (rn) CC Plasma Assessment Blood Product Administration S: [id number] SILAS STAHL RESIDENT Nov 14, 2024 11:14 JESSICA WOODARD MD Nov 28, 2024 17:38
[2024-11-14] MEDS: POTASSIUM CHL 20MEQ/100ML 100 ML IV SCH (13:23)
--- NOTE | 2024-11-14 13:53 | DVHPN2 ---
Progress Note - Dictate Date Seen: Nov 14, 2024 Has the PT tested + for MRSA If YES, has PT been informed?: No Medical Necessity Reason Pt with a Central, PICC or Fol: No The following are medically ne: Central Line, Gómez Catheter Reason for gómez catheter: Strict I&O vital signs Vital Sign Date Time Temp Pulse Resp B/P (MAP) Pulse Ox O2 Delivery O2 Flow Rate FiO2 11/14/24 12:46 92 24 99 11/14/24 12:45 189/81 11/14/24 12:38 T-piece 6.0 11/14/24 12:38 30 30 11/14/24 12:30 98.5 98.5 Total Intake and Output 11/13/24 11/13/24 11/14/24 15:00 23:00 07:00 Intake Total 800 ml 940 ml 585 ml Output Total 695 ml 830 ml Balance 800 ml 245 ml -245 ml medications Current Medications Medications Dose Ordered Sig/Wally Route Start Time Stop Time Status Last Admin Dose Admin Ondansetron HCl 4 mg Q4HP PRN IV 10/04/24 11:45 Morphine Sulfate 2 mg Q4HPRN PRN IV 10/04/24 11:45 Cancel Nitroglycerin 0.4 mg Q5MINP PRN SL 10/04/24 11:45 Morphine Sulfate 2 mg Q30M PRN IV 10/04/24 11:45 Cancel Lorazepam 50 mg/ Sodium Chloride 50 ml @ 1 mls/hr Q24H IV 10/04/24 18:15 Cancel Amino Acids 0 ml @ 0 mls/hr PER PHARMACY IV 10/05/24 14:30 UNV Diagnostic Test (Pha) 1 strip Q6HR 10/05/24 18:00 11/14/24 11:53 1 STRIP Insulin Human Regular FOLLOW SLIDING SCALE Q6HR SC 10/05/24 18:00 11/03/24 17:23 2 UNITS Dextrose 50 ml UD IV 10/05/24 14:45 Meropenem 50 ml @ 17 mls/hr Q12HR IV 10/07/24 10:00 UNV Levalbuterol HCl 0.625 mg Q6HR NEB 10/13/24 12:00 11/14/24 12:38 0.625 MG Ipratropium [place] 0.5 mg Q6HR NEB 10/13/24 12:00 11/14/24 12:38 0.5 MG Morphine Sulfate 2 mg Q4HPRN PRN IV 10/21/24 11:30 11/10/24 05:15 2 MG Acetaminophen 650 mg Q6HP PRN GT 10/22/24 09:00 11/10/24 08:08 650 MG Sucralfate 1 gm BID@0600,2200 GT 10/28/24 22:00 11/14/24 06:17 1 GM Pantoprazole Sodium 50 ml @ 0 mls/hr Q0M IV 10/28/24 16:15 Cancel Midazolam HCl 1 mg Q2HP PRN IV 10/30/24 16:45 11/03/24 15:29 1 MG Epoetin Roger-epbx 10,000 unit MWF@2100 SC 10/31/24 21:00 11/12/24 21:40 10,000 UNIT Sodium Chloride 10 ml QSHIFT@10,22 IV 10/31/24 22:00 11/14/24 10:15 10 ML Micafungin Sodium 100 mg/Sodium Chloride 100 ml @ 100 mls/hr DAILY IV 11/02/24 10:00 11/14/24 11:06 100 MLS/HR Acetaminophen/ Hydrocodone Bitart 1 tab Q4HPRN PRN PO 11/06/24 09:15 Enteral Nutritional Formula 1,000 ml 50ML/HR GT 11/06/24 09:30 Lactulose 30 ml DAILY JT 11/11/24 10:00 11/14/24 11:11 30 ML Sodium Chloride 1,000 ml @ 75 mls/hr [id number] IV 11/11/24 09:15 11/14/24 06:25 75 MLS/HR Amlodipine Besylate 10 mg DAILY GT 11/11/24 10:00 11/14/24 10:16 10 MG Labetalol HCl 10 mg Q2HPRN PRN IV 11/12/24 17:00 11/14/24 12:45 10 MG Hydralazine HCl 50 mg Q8HR GT 11/13/24 14:00 11/14/24 06:17 50 MG Labetalol HCl 300 mg Q12HR PO 11/13/24 10:00 11/14/24 11:12 300 MG Clonidine HCl 0.1 mg Q7D TD 11/13/24 07:00 11/13/24 08:35 0.1 MG Pantoprazole Sodium 40 mg BID IV 11/13/24 10:00 11/14/24 11:12 40 MG Metoclopramide HCl 5 mg Q8HR IV 11/13/24 14:00 11/14/24 06:17 5 MG Ertapenem 1 gm/ Sodium Chloride 50 ml @ 100 mls/hr DAILY IV 11/14/24 10:00 11/14/24 10:15 100 MLS/HR laboratory and microbiology Laboratory Tests 11/14/24 08:27 Test 11/14/24 08:27 Range/Units Serum Glucose 81 74-106 mg/dL Assessment/Plan Impression Acute hypoxemic respiratory failure S/p tracheostomy Perforated viscus Septic shock Smoker Patient seen and examined in ICU Events S/p tracheostomy Tolerating trache collar No distress Labs and imaging reviewed ABG reviewed Management Vent support as needed Titrate to maintain sats 90% or above Trache collar follow up with gen sx Continue antibiotics and antifungals F/u cultures Bronchodilators Monitor renal function Monitor electrolytes Supplement as needed HD per nephrology Nutritional support Tube feedings Okay to downgrade to ANNIE DVT prophylaxis Critical care time 35 minutes Dietary Evaluation Review Comments: 1. Continue TPN to meet at least 75% estimated needs 2. Continue current POC Expected Outcomes/Goals: FU 2-3 days to meet adequate energy & protein within 7 days of NPO Protein Calorie Malnutrition: Severe (rn) Plan discussed with: Patient CC Plasma Assessment Blood Product Administration S: [id number] VALENTE DEE MD Nov 14, 2024 13:53
--- NOTE | 2024-11-14 14:54 | DVHPN2 ---
Progress Note Date Seen: Nov 14, 2024 Resident Creating Document: KWASI MILLAN RESIDENT Has the PT tested + for MRSA If YES, has PT been informed?: No Medical Necessity Reason Pt with a Central, PICC or Fol: No The following are medically ne: Central Line, Gómez Catheter Reason for gómez catheter: Strict I&O Subjective Review of Systems Patient was seen today at bedside On T-piece trach collar No fever overnight H&H stable Leukocytosis resolved Patient with gastric residual volume 340 Hypokalemia, potassium replenished Objective vital signs Vital Sign Date Time Temp Pulse Resp B/P (MAP) Pulse Ox O2 Delivery O2 Flow Rate FiO2 11/14/24 14:23 180/89 11/14/24 14:00 90 24 97 11/14/24 12:38 T-piece 6.0 11/14/24 12:38 30 30 11/14/24 12:30 98.5 98.5 Total Intake and Output 11/13/24 11/13/24 11/14/24 15:00 23:00 07:00 Intake Total 800 ml 940 ml 585 ml Output Total 695 ml 830 ml Balance 800 ml 245 ml -245 ml medications Current Medications Medications Dose Ordered Sig/Wally Route Start Time Stop Time Status Last Admin Dose Admin Ondansetron HCl 4 mg Q4HP PRN IV 10/04/24 11:45 Morphine Sulfate 2 mg Q4HPRN PRN IV 10/04/24 11:45 Cancel Nitroglycerin 0.4 mg Q5MINP PRN SL 10/04/24 11:45 Morphine Sulfate 2 mg Q30M PRN IV 10/04/24 11:45 Cancel Lorazepam 50 mg/ Sodium Chloride 50 ml @ 1 mls/hr Q24H IV 10/04/24 18:15 Cancel Amino Acids 0 ml @ 0 mls/hr PER PHARMACY IV 10/05/24 14:30 UNV Diagnostic Test (Pha) 1 strip Q6HR 10/05/24 18:00 11/14/24 11:53 1 STRIP Insulin Human Regular FOLLOW SLIDING SCALE Q6HR SC 10/05/24 18:00 11/03/24 17:23 2 UNITS Dextrose 50 ml UD IV 10/05/24 14:45 Meropenem 50 ml @ 17 mls/hr Q12HR IV 10/07/24 10:00 UNV Levalbuterol HCl 0.625 mg Q6HR NEB 10/13/24 12:00 11/14/24 12:38 0.625 MG Ipratropium [place] 0.5 mg Q6HR NEB 10/13/24 12:00 11/14/24 12:38 0.5 MG Morphine Sulfate 2 mg Q4HPRN PRN IV 10/21/24 11:30 11/10/24 05:15 2 MG Acetaminophen 650 mg Q6HP PRN GT 10/22/24 09:00 11/10/24 08:08 650 MG Sucralfate 1 gm BID@0600,2200 GT 10/28/24 22:00 11/14/24 06:17 1 GM Pantoprazole Sodium 50 ml @ 0 mls/hr Q0M IV 10/28/24 16:15 Cancel Midazolam HCl 1 mg Q2HP PRN IV 10/30/24 16:45 11/03/24 15:29 1 MG Epoetin Roger-epbx 10,000 unit MWF@2100 SC 10/31/24 21:00 11/12/24 21:40 10,000 UNIT Sodium Chloride 10 ml QSHIFT@10,22 IV 10/31/24 22:00 11/14/24 10:15 10 ML Micafungin Sodium 100 mg/Sodium Chloride 100 ml @ 100 mls/hr DAILY IV 11/02/24 10:00 11/14/24 11:06 100 MLS/HR Acetaminophen/ Hydrocodone Bitart 1 tab Q4HPRN PRN PO 11/06/24 09:15 Enteral Nutritional Formula 1,000 ml 50ML/HR GT 11/06/24 09:30 Lactulose 30 ml DAILY JT 11/11/24 10:00 11/14/24 11:11 30 ML Sodium Chloride 1,000 ml @ 75 mls/hr [id number] IV 11/11/24 09:15 11/14/24 06:25 75 MLS/HR Amlodipine Besylate 10 mg DAILY GT 11/11/24 10:00 11/14/24 10:16 10 MG Labetalol HCl 10 mg Q2HPRN PRN IV 11/12/24 17:00 11/14/24 12:45 10 MG Hydralazine HCl 50 mg Q8HR GT 11/13/24 14:00 11/14/24 14:23 50 MG Labetalol HCl 300 mg Q12HR PO 11/13/24 10:00 11/14/24 11:12 300 MG Clonidine HCl 0.1 mg Q7D TD 11/13/24 07:00 11/13/24 08:35 0.1 MG Pantoprazole Sodium 40 mg BID IV 11/13/24 10:00 11/14/24 11:12 40 MG Metoclopramide HCl 5 mg Q8HR IV 11/13/24 14:00 11/14/24 14:23 5 MG Ertapenem 1 gm/ Sodium Chloride 50 ml @ 100 mls/hr DAILY IV 11/14/24 10:00 11/14/24 10:15 100 MLS/HR laboratory and microbiology Laboratory Tests 11/14/24 08:27 Test 11/14/24 08:27 Range/Units Serum Glucose 81 74-106 mg/dL Microbiology Date/Time Source Procedure Growth Status 11/10/24 22:44 Voided Urine Urine Culture - Final Complete 11/10/24 19:36 Blood Blood Culture - Preliminary Resulted 10/18/24 09:21 Pleural Fluid Gram Stain - Final Complete 10/18/24 09:21 Pleural Fluid Body Fluid Culture - Final Complete 10/16/24 12:05 Bronchial Washings Gram Stain - Final Complete 10/16/24 12:05 Bronchial Washings Respiratory Culture - Final Complete 10/04/24 17:10 Nose MRSA Screen - Final Complete Problem List/Assessment/Plan Problem List/Assessment/Plan Assessment and plan (1) Cholecystitis (2) TIA (transient ischemic attack) (3) Altered mental status (4) Severe anemia (5) Perforated viscus (6) NSTEMI (non-ST elevated myocardial infarction) (7) GI bleeding (8) Septic shock (9) Leukocytosis Events On T-piece trach collar No fever overnight H&H stable Leukocytosis resolved Patient with gastric residual volume 340 Hypokalemia, potassium replenished Plan Hold tube feeding for now Continue current antibiotic Physical therapy Discharge planning Surgery recommendation reviewed and appreciated Cholecystectomy as per surgical consult -as per surgery cholecystectomy can be timed after overall improvement Monitor CBC, BNP Continue IV ppi Protonix Plan discussed with Dr. Chanda Stoddard , nursing staff, Total time spent on patient evaluation, chart review, assessment and plan, discussion discussion >35 minutes Plan discussed with: Patient, Other (RN) My Orders My Orders Orders - KWASI MILLAN Procedure Category Date Status Time Communication Order ORDERS 11/14/24 Transmitted 13:04 Dietary Evaluation Review Comments: 1. Continue TPN to meet at least 75% estimated needs 2. Continue current POC Expected Outcomes/Goals: FU 2-3 days to meet adequate energy & protein within 7 days of NPO Protein Calorie Malnutrition: Severe (rn) CC Plasma Assessment Blood Product Administration S: [id number] KWASI MILLAN RESIDENT Nov 14, 2024 14:54
[2024-11-14] MEDS: LORazepam 2MG/ML-1ML VIAL IV PRN (16:48)
--- NOTE | 2024-11-14 19:04 | DVHPN2 ---
Progress Note Date Seen: Nov 14, 2024 Has the PT tested + for MRSA If YES, has PT been informed?: No Medical Necessity Reason Pt with a Central, PICC or Fol: No The following are medically ne: Central Line, Gómez Catheter Reason for gómez catheter: Strict I&O Subjective Patient reports: Other Review of Systems: Deferred Objective vital signs Vital Sign Date Time Temp Pulse Resp B/P (MAP) Pulse Ox O2 Delivery O2 Flow Rate FiO2 11/14/24 18:26 100 Trach Collar 11 17 2911/14/24 18:26 101 18 11/14/24 14:23 180/89 11/14/24 12:30 98.5 98.5 Total Intake and Output 11/13/24 11/13/24 11/14/24 15:00 23:00 07:00 Intake Total 800 ml 940 ml 585 ml Output Total 695 ml 830 ml Balance 800 ml 245 ml -245 ml medications Current Medications Medications Dose Ordered Sig/Wally Route Start Time Stop Time Status Last Admin Dose Admin Ondansetron HCl 4 mg Q4HP PRN IV 10/04/24 11:45 Morphine Sulfate 2 mg Q4HPRN PRN IV 10/04/24 11:45 Cancel Nitroglycerin 0.4 mg Q5MINP PRN SL 10/04/24 11:45 Morphine Sulfate 2 mg Q30M PRN IV 10/04/24 11:45 Cancel Lorazepam 50 mg/ Sodium Chloride 50 ml @ 1 mls/hr Q24H IV 10/04/24 18:15 Cancel Amino Acids 0 ml @ 0 mls/hr PER PHARMACY IV 10/05/24 14:30 UNV Diagnostic Test (Pha) 1 strip Q6HR 10/05/24 18:00 11/14/24 18:19 1 STRIP Insulin Human Regular FOLLOW SLIDING SCALE Q6HR SC 10/05/24 18:00 11/03/24 17:23 2 UNITS Dextrose 50 ml UD IV 10/05/24 14:45 Meropenem 50 ml @ 17 mls/hr Q12HR IV 10/07/24 10:00 UNV Levalbuterol HCl 0.625 mg Q6HR NEB 10/13/24 12:00 11/14/24 18:26 0.625 MG Ipratropium [place] 0.5 mg Q6HR NEB 10/13/24 12:00 11/14/24 18:26 0.5 MG Morphine Sulfate 2 mg Q4HPRN PRN IV 10/21/24 11:30 11/10/24 05:15 2 MG Acetaminophen 650 mg Q6HP PRN GT 10/22/24 09:00 11/10/24 08:08 650 MG Sucralfate 1 gm BID@0600,2200 GT 10/28/24 22:00 11/14/24 06:17 1 GM Pantoprazole Sodium 50 ml @ 0 mls/hr Q0M IV 10/28/24 16:15 Cancel Midazolam HCl 1 mg Q2HP PRN IV 10/30/24 16:45 11/03/24 15:29 1 MG Epoetin Roger-epbx 10,000 unit MWF@2100 SC 10/31/24 21:00 11/12/24 21:40 10,000 UNIT Sodium Chloride 10 ml QSHIFT@10,22 IV 10/31/24 22:00 11/14/24 10:15 10 ML Micafungin Sodium 100 mg/Sodium Chloride 100 ml @ 100 mls/hr DAILY IV 11/02/24 10:00 11/14/24 11:06 100 MLS/HR Acetaminophen/ Hydrocodone Bitart 1 tab Q4HPRN PRN PO 11/06/24 09:15 Enteral Nutritional Formula 1,000 ml 50ML/HR GT 11/06/24 09:30 Lactulose 30 ml DAILY JT 11/11/24 10:00 11/14/24 11:11 30 ML Sodium Chloride 1,000 ml @ 75 mls/hr [id number] IV 11/11/24 09:15 11/14/24 06:25 75 MLS/HR Amlodipine Besylate 10 mg DAILY GT 11/11/24 10:00 11/14/24 10:16 10 MG Labetalol HCl 10 mg Q2HPRN PRN IV 11/12/24 17:00 11/14/24 12:45 10 MG Hydralazine HCl 50 mg Q8HR GT 11/13/24 14:00 11/14/24 14:23 50 MG Labetalol HCl 300 mg Q12HR PO 11/13/24 10:00 11/14/24 11:12 300 MG Clonidine HCl 0.1 mg Q7D TD 11/13/24 07:00 11/13/24 08:35 0.1 MG Pantoprazole Sodium 40 mg BID IV 11/13/24 10:00 11/14/24 11:12 40 MG Metoclopramide HCl 5 mg Q8HR IV 11/13/24 14:00 11/14/24 14:23 5 MG Ertapenem 1 gm/ Sodium Chloride 50 ml @ 100 mls/hr DAILY IV 11/14/24 10:00 11/14/24 10:15 100 MLS/HR Lorazepam 1 mg Q4HP PRN IV 11/14/24 16:15 11/14/24 16:48 1 MG Examination: GENERAL:Abnormal, NEURO:Abnormal laboratory and microbiology Laboratory Tests 11/14/24 08:27 Test 11/14/24 08:27 Range/Units Serum Glucose 81 74-106 mg/dL Microbiology Date/Time Source Procedure Growth Status 11/10/24 22:44 Voided Urine Urine Culture - Final Complete 11/10/24 19:36 Blood Blood Culture - Preliminary Resulted 10/18/24 09:21 Pleural Fluid Gram Stain - Final Complete 10/18/24 09:21 Pleural Fluid Body Fluid Culture - Final Complete 10/16/24 12:05 Bronchial Washings Gram Stain - Final Complete 10/16/24 12:05 Bronchial Washings Respiratory Culture - Final Complete 10/04/24 17:10 Nose MRSA Screen - Final Complete Problem List/Assessment/Plan Problem List/Assessment/Plan Acute kidney injury /ATN requiring acute inpatient hemodialysis Acute respiratory failure -> now trach Perforated gastric ulcer status post exploratory laparoscopic surgery Hypokalemia Anemia due to chronic disease/inflammation tachycardia + Bcx fungemia hypernatremia recs dc ivf k replace Plan discussed with: Other Dietary Evaluation Review Comments: 1. Continue TPN to meet at least 75% estimated needs 2. Continue current POC Expected Outcomes/Goals: FU 2-3 days to meet adequate energy & protein within 7 days of NPO Protein Calorie Malnutrition: Severe (rn) CC Plasma Assessment Blood Product Administration S: [id number] DAYANARA BLACKWOOD MD Nov 14, 2024 19:04
--- NOTE | 2024-11-14 22:33 | DVHPN2 ---
Progress Note - Dictate Date Seen: Nov 14, 2024 Has the PT tested + for MRSA If YES, has PT been informed?: No Medical Necessity Reason Pt with a Central, PICC or Fol: No The following are medically ne: Central Line, Gómez Catheter Reason for gómez catheter: Strict I&O Subjective Mr. Perez is a 48 years old right-handed gentleman with a history of hypertension, dyslipidemia, multiple strokes, he was brought to the [facility] on 10/04/2024 with a chief company of recurrent syncope, in the hospital, the patient was found to have perforated viscus, and he went through surgical treatment, he was hospital course has been complicated with sepsis, septic shock, pneumonia, right upper extremity DVT. I saw him on 08/23/2023 for TIA I have seen and examined the patient, discussed with his nurse. He is doing is, follows, he can move the right arm but the left shoulder weakness has no improvement No abdominal pain Afebrile Blood culture, Urinalysis, 08/22/2023: Unremarkable UDS, 08/22/2023: Negative WBC/Hb/PLT'/MCV, 08/22/2023: 10.8/13.1/184/87.4, 10/28/2024: 15/8/487/89.3 10/31/2024: 24.3/9.1/77/88.4 Troponin 1 high-sensitivity, 08/22/2023: 336, 273/300 BUNs/CR, 08/22/2023: 15/1.45 10/31/2024: Two 9/2.42 GFR, 08/22/2023: 59 Liver function test, 10/04/2024: Unremarkable TBI/AST/ALT/AP, 10/04/2024: 0.6/410/335/31, 10/05/2024: 1.3/582/423/39, 10/31/2024: 3.6/54/98/117 TG/CHO L/LDL/HDL, 08/2023: 136/166/111/39 TSH, 08/23/2023: 4.25 Extremity venous study, right arm, 11/09/2024: Thrombus is seen in the cephalic vein in the forearm. DONAL, 08/23/2023: 1. No evidence of intracardiac source of embolus in the study conducted today. 2. Normal valves without significant masses or change vegetations were discernible. 3. No evidence of intra-atrial shunting by bubble study and color Doppler. 4. Mild atherosclerotic plaquing was visualized in the arch of the aorta without evidence of dissection in the visualized part CT head, 10/24/2024: 1. No intracranial hemorrhage or mass effect. 2. [id number] chronic microvascular ischemic changes. 3. Old bilateral basal ganglia lacunar infarcts. 4. Small bilateral mastoid effusions. CT abdomen/pelvis, 10/04/2024: 1. Extensive intra-abdominal free air concerning for perforated viscus. Surgical consultation is recommended. 2. Enteritis is seen in multiple loops of small bowel in the left hemiabdomen. 3. Moderate abdominopelvic ascites. 4. Small right pleural effusion. CTA neck, head, 08/22/2023:1. CTA head demonstrates no evidence of large vessel occlusion, aneurysm, or significant stenosis. 2. CTA neck demonstrates no evidence of carotid or vertebral dissection or significant stenosis. 3. No noncontrast CT head was performed. 4. Additional findings as detailed above MRI head, 08/23/2023: No acute infarct, intracranial hemorrhage, mass effect, or hydrocephalus. Moderate periventricular and deep subcortical white matter T2 hyperintensities which are nonspecific, but most likely related to sequela of chronic microvascular ischemic changes (I have reviewed the MRI films with our in-house radiologist, Dr. Black, the patient has bilateral multiple subacute/chronic infarcts) MRI head, 11/01/2024: No acute cerebrovascular ischemia. Ijmg-[id number] chronic microvascular ischemic changes. Bilateral mastoid effusions. Old bilateral basal ganglia / lopes radiata infarcts. vital signs Vital Sign Date Time Temp Pulse Resp B/P (MAP) Pulse Ox O2 Delivery O2 Flow Rate FiO2 11/14/24 21:41 93 142/61 11/14/24 20:30 25 99 11/14/24 20:00 97.9 97.9 11/14/24 20:00 T-piece 6 28 28 Total Intake and Output 11/13/24 11/13/24 11/14/24 15:00 23:00 07:00 Intake Total 800 ml 940 ml 585 ml Output Total 695 ml 830 ml Balance 800 ml 245 ml -245 ml medications Current Medications Medications Dose Ordered Sig/Wally Route Start Time Stop Time Status Last Admin Dose Admin Ondansetron HCl 4 mg Q4HP PRN IV 10/04/24 11:45 Morphine Sulfate 2 mg Q4HPRN PRN IV 10/04/24 11:45 Cancel Nitroglycerin 0.4 mg Q5MINP PRN SL 10/04/24 11:45 Morphine Sulfate 2 mg Q30M PRN IV 10/04/24 11:45 Cancel Lorazepam 50 mg/ Sodium Chloride 50 ml @ 1 mls/hr Q24H IV 10/04/24 18:15 Cancel Amino Acids 0 ml @ 0 mls/hr PER PHARMACY IV 10/05/24 14:30 UNV Diagnostic Test (Pha) 1 strip Q6HR 10/05/24 18:00 11/14/24 18:19 1 STRIP Insulin Human Regular FOLLOW SLIDING SCALE Q6HR SC 10/05/24 18:00 11/03/24 17:23 2 UNITS Dextrose 50 ml UD IV 10/05/24 14:45 Meropenem 50 ml @ 17 mls/hr Q12HR IV 10/07/24 10:00 UNV Levalbuterol HCl 0.625 mg Q6HR NEB 10/13/24 12:00 11/14/24 18:26 0.625 MG Ipratropium [place] 0.5 mg Q6HR NEB 10/13/24 12:00 11/14/24 18:26 0.5 MG Morphine Sulfate 2 mg Q4HPRN PRN IV 10/21/24 11:30 11/10/24 05:15 2 MG Acetaminophen 650 mg Q6HP PRN GT 10/22/24 09:00 11/10/24 08:08 650 MG Sucralfate 1 gm BID@0600,2200 GT 10/28/24 22:00 11/14/24 21:39 1 GM Pantoprazole Sodium 50 ml @ 0 mls/hr Q0M IV 10/28/24 16:15 Cancel Midazolam HCl 1 mg Q2HP PRN IV 10/30/24 16:45 11/03/24 15:29 1 MG Epoetin Roger-epbx 10,000 unit MWF@2100 SC 10/31/24 21:00 11/14/24 21:40 10,000 UNIT Sodium Chloride 10 ml QSHIFT@ IV 10/31/24 22:00 11/14/24 21:42 10 ML Micafungin Sodium 100 mg/Sodium Chloride 100 ml @ 100 mls/hr DAILY IV 11/02/24 10:00 11/14/24 11:06 100 MLS/HR Acetaminophen/ Hydrocodone Bitart 1 tab Q4HPRN PRN PO 11/06/24 09:15 Enteral Nutritional Formula 1,000 ml 50ML/HR GT 11/06/24 09:30 Lactulose 30 ml DAILY JT 11/11/24 10:00 11/14/24 11:11 30 ML Amlodipine Besylate 10 mg DAILY GT 11/11/24 10:00 11/14/24 10:16 10 MG Labetalol HCl 10 mg Q2HPRN PRN IV 11/12/24 17:00 11/14/24 12:45 10 MG Hydralazine HCl 50 mg Q8HR GT 11/13/24 14:00 11/14/24 14:23 50 MG Labetalol HCl 300 mg Q12HR PO 11/13/24 10:00 11/14/24 21:41 300 MG Clonidine HCl 0.1 mg Q7D TD 11/13/24 07:00 11/13/24 08:35 0.1 MG Pantoprazole Sodium 40 mg BID IV 11/13/24 10:00 11/14/24 21:39 40 MG Metoclopramide HCl 5 mg Q8HR IV 11/13/24 14:00 11/14/24 21:40 5 MG Ertapenem 1 gm/ Sodium Chloride 50 ml @ 100 mls/hr DAILY IV 11/14/24 10:00 11/14/24 10:15 100 MLS/HR Lorazepam 1 mg Q4HP PRN IV 11/14/24 16:15 11/14/24 16:48 1 MG objective General: the patient is well developed and nourished. No acute distress. MENTAL STATUS: Subjective SPEECH, LANGUAGE, HIGHER CORTICAL FUNCTION: He does not vocalize/status post tracheostomy. CRANIAL NERVES:Intact visual ansari to confrontation (visual thread). Pupils are equal, round and reactive. EOMs full and conjugate. Mandibular strength intact. Facial muscles symmetrical and strength intact. SENSATION: Sensation to touch and pinprick is unremarkable MOTOR: Normal muscle bulk. No fasciculations. No abnormal movements or posturing. He moves the left arm: 3/5. Except for 1-2/5 in the shoulder. Right upper extremity: 3/5 except for 1/5 in the shoulder Lt leg: >2/5. Moves the right le/5 REFLEXES: Deep tendon reflexes are increased bilaterally, clonus in both knees . No pathological reflexes. CEREBELLAR/COORDINATION: Deferred GAIT/STATION: deferred laboratory and microbiology Laboratory Tests 11/14/24 08:27 Test 11/14/24 08:27 Range/Units Serum Glucose 81 74-106 mg/dL Problem List Altered mental status Metabolic encephalopathy secondary to sepsis, septic shock, pneumonia Hypoxic encephalopathy Viscus perforation status post surgical repair GI bleeding Anemia Fever/ Sepsis/septic shock Respiratory failure S/P tracheostomy Multiple strokes Secondary to history methamphetamine, cocaine, alcohol use History of alcohol abuse History of cocaine, methamphetamine abuse Hyperreflexia secondary to multiple strokes Right upper extremity DVT Assessment/Plan Monitoring Supportive treatment ICU care Stabilize vitals Respiratory suppor Blood culture Follow-up labs IV antibiotics Protonix TPN Quit tobacco smoking No more alcohol, street drug abuse Stroke risk factors discussed GI on case Infectious disease on case Pulmonology on case Hematology on case Nephrology on case More recommended per clinical course This medical document was created using an electronic medical record system with [employer] computerized dictation system. Although this document has been carefully reviewed, there may still be some phonetic and typographical errors. These areas are purely typographical due to imperfections of the software programs, and do not reflect any compromise in the patient's medical care. Prognosis poor Dietary Evaluation Review Comments: 1. Continue TPN to meet at least 75% estimated needs 2. Continue current POC Expected Outcomes/Goals: FU 2-3 days to meet adequate energy & protein within 7 days of NPO Protein Calorie Malnutrition: Severe (rn) Plan discussed with: Other CC Plasma Assessment Blood Product Administration S: [id number] LEANDRO BLACK MD Nov 14, 2024 22:33
[2024-11-15] VITALS (42 sets, daily range): BP systolic 114–169; BP diastolic 55–81; PULSE 82–100; RESP 18–31; TEMP 98–98.4; O2SAT 97–100
[2024-11-15 04:36] LABS: Hematocrit 25.2 % (41.0-53.0); Hemoglobin 8.3 g/dL (13.5-17.5); Mean Corpuscular Hemoglobin 28.6 pg (28.0-32.0); Mean Corpuscular Volume 87.5 fL (80.0-100.0); Nucleated Red Blood Cells % 0.1 %
[2024-11-15 04:42] LABS: Potassium 3.8 mmol/L (3.5-5.1)
[2024-11-15 04:43] LABS: Anion Gap 14 (5-15); Calcium 8.9 mg/dL (8.7-10.4)
[2024-11-15 04:48] LABS: BUN/Creatinine Ratio 16.9 (10.0-20.0); Glucose 85 mg/dL (74-106)
[2024-11-15 04:51] LABS: Blood Urea Nitrogen 33 mg/dL (9-23); Carbon Dioxide 18 mmol/L (20-31); Chloride 116 mmol/L (98-107); Sodium 148 mmol/L (136-145)
--- NOTE | 2024-11-15 11:49 | DVHPN2 ---
Progress Note Date Seen: Nov 15, 2024 Resident Creating Document: KWASI MILLAN RESIDENT Has the PT tested + for MRSA If YES, has PT been informed?: No Medical Necessity Reason Pt with a Central, PICC or Fol: No The following are medically ne: Central Line, Gómez Catheter Reason for gómez catheter: Strict I&O Subjective Review of Systems Patient is seen today at bedside As per nursing staff patient passed bedside swallow evaluation H&H stable Had a bowel movement yesterday On trach collar with T piece Culture no growth so far Objective vital signs Vital Sign Date Time Temp Pulse Resp B/P (MAP) Pulse Ox O2 Delivery O2 Flow Rate FiO2 11/15/24 10:30 95 125/85 11/15/24 10:00 26 100 11/15/24 10:00 T-piece 11 16 2711/15/24 08:00 98.0 98.0 Total Intake and Output 11/14/24 11/14/24 11/15/24 15:00 23:00 07:00 Intake Total 525 ml 285 ml 50 ml Output Total 600 ml 550 ml Balance 525 ml -315 ml -500 ml medications Current Medications Medications Dose Ordered Sig/Wally Route Start Time Stop Time Status Last Admin Dose Admin Ondansetron HCl 4 mg Q4HP PRN IV 10/04/24 11:45 Morphine Sulfate 2 mg Q4HPRN PRN IV 10/04/24 11:45 Cancel Nitroglycerin 0.4 mg Q5MINP PRN SL 10/04/24 11:45 Morphine Sulfate 2 mg Q30M PRN IV 10/04/24 11:45 Cancel Lorazepam 50 mg/ Sodium Chloride 50 ml @ 1 mls/hr Q24H IV 10/04/24 18:15 Cancel Amino Acids 0 ml @ 0 mls/hr PER PHARMACY IV 10/05/24 14:30 UNV Diagnostic Test (Pha) 1 strip Q6HR 10/05/24 18:00 11/15/24 05:39 1 STRIP Insulin Human Regular FOLLOW SLIDING SCALE Q6HR SC 10/05/24 18:00 11/03/24 17:23 2 UNITS Dextrose 50 ml UD IV 10/05/24 14:45 Meropenem 50 ml @ 17 mls/hr Q12HR IV 10/07/24 10:00 UNV Levalbuterol HCl 0.625 mg Q6HR NEB 10/13/24 12:00 11/15/24 11:46 0.625 MG Ipratropium [place] 0.5 mg Q6HR NEB 10/13/24 12:00 11/15/24 11:45 0.5 MG Morphine Sulfate 2 mg Q4HPRN PRN IV 10/21/24 11:30 11/10/24 05:15 2 MG Acetaminophen 650 mg Q6HP PRN GT 10/22/24 09:00 11/10/24 08:08 650 MG Sucralfate 1 gm BID@0600,2200 GT 10/28/24 22:00 11/15/24 05:38 1 GM Pantoprazole Sodium 50 ml @ 0 mls/hr Q0M IV 10/28/24 16:15 Cancel Midazolam HCl 1 mg Q2HP PRN IV 10/30/24 16:45 11/03/24 15:29 1 MG Epoetin Roger-epbx 10,000 unit MWF@2100 SC 10/31/24 21:00 11/14/24 21:40 10,000 UNIT Sodium Chloride 10 ml QSHIFT@10,22 IV 10/31/24 22:00 11/15/24 09:48 10 ML Micafungin Sodium 100 mg/Sodium Chloride 100 ml @ 100 mls/hr DAILY IV 11/02/24 10:00 11/15/24 09:33 100 MLS/HR Acetaminophen/ Hydrocodone Bitart 1 tab Q4HPRN PRN PO 11/06/24 09:15 Enteral Nutritional Formula 1,000 ml 50ML/HR GT 11/06/24 09:30 Lactulose 30 ml DAILY JT 11/11/24 10:00 11/15/24 09:31 30 ML Amlodipine Besylate 10 mg DAILY GT 11/11/24 10:00 11/15/24 09:32 10 MG Labetalol HCl 10 mg Q2HPRN PRN IV 11/12/24 17:00 11/14/24 12:45 10 MG Hydralazine HCl 50 mg Q8HR GT 11/13/24 14:00 11/15/24 05:39 50 MG Labetalol HCl 300 mg Q12HR PO 11/13/24 10:00 11/15/24 09:34 300 MG Clonidine HCl 0.1 mg Q7D TD 11/13/24 07:00 11/13/24 08:35 0.1 MG Pantoprazole Sodium 40 mg BID IV 11/13/24 10:00 11/15/24 09:32 40 MG Metoclopramide HCl 5 mg Q8HR IV 11/13/24 14:00 11/15/24 05:39 5 MG Ertapenem 1 gm/ Sodium Chloride 50 ml @ 100 mls/hr DAILY IV 11/14/24 10:00 11/15/24 09:33 100 MLS/HR Lorazepam 1 mg Q4HP PRN IV 11/14/24 16:15 11/14/24 16:48 1 MG laboratory and microbiology Laboratory Tests 11/15/24 03:42 Test 11/15/24 03:42 Range/Units Serum Glucose 85 74-106 mg/dL Microbiology Date/Time Source Procedure Growth Status 11/14/24 08:27 Blood Blood Culture - Preliminary NO GROWTH AFTER 24 HOURS OF INCUBATION. Resulted 11/10/24 22:44 Voided Urine Urine Culture - Final Complete 10/18/24 09:21 Pleural Fluid Gram Stain - Final Complete 10/18/24 09:21 Pleural Fluid Body Fluid Culture - Final Complete 10/16/24 12:05 Bronchial Washings Gram Stain - Final Complete 10/16/24 12:05 Bronchial Washings Respiratory Culture - Final Complete 10/04/24 17:10 Nose MRSA Screen - Final Complete Problem List/Assessment/Plan Problem List/Assessment/Plan Assessment and plan (1) Cholecystitis (2) TIA (transient ischemic attack) (3) Altered mental status (4) Severe anemia (5) Perforated viscus (6) NSTEMI (non-ST elevated myocardial infarction) (7) GI bleeding (8) Septic shock (9) Leukocytosis Events As per nursing staff patient passed bedside swallow evaluation H&H stable Had a bowel movement yesterday On trach collar with T piece Culture no growth so far Plan Ordered clear liquid Continue current antibiotic Physical therapy Discharge planning Surgery recommendation reviewed and appreciated Cholecystectomy as per surgical consult -as per surgery cholecystectomy can be timed after overall improvement Monitor CBC, BNP Continue IV Protonix Plan discussed with Dr. Chanda Stoddard , nursing staff, Total time spent on patient evaluation, chart review, assessment and plan, discussion discussion >35 minutes Plan discussed with: Patient, Other (RN) My Orders My Orders Orders - KWASI MILLAN RESIDENT Procedure Category Date Status Time Communication Order ORDERS 11/14/24 Transmitted 13:04 Clear Liq Diet DIET 11/15/24 Transmitted Lunch Dietary Evaluation Review Comments: 1. Continue TPN to meet at least 75% estimated needs 2. Continue current POC Expected Outcomes/Goals: FU 2-3 days to meet adequate energy & protein within 7 days of NPO Protein Calorie Malnutrition: Severe (rn) CC Plasma Assessment Blood Product Administration S: [id number] KWASI MILLAN RESIDENT Nov 15, 2024 11:49
[2024-11-15] MEDS: D5W 5% 1,000 ML IV SCH (12:42)
--- NOTE | 2024-11-15 17:05 | DVHPN2 ---
Progress Note - Dictate Date Seen: Nov 15, 2024 Has the PT tested + for MRSA If YES, has PT been informed?: No Medical Necessity Reason Pt with a Central, PICC or Fol: No The following are medically ne: Central Line, Gómez Catheter Reason for gómez catheter: Strict I&O Subjective Mr. Perez is a 48 years old right-handed gentleman with a history of hypertension, dyslipidemia, multiple strokes, he was brought to the [facility] on 10/04/2024 with a chief company of recurrent syncope, in the hospital, the patient was found to have perforated viscus, and he went through surgical treatment, he was hospital course has been complicated with sepsis, septic shock, pneumonia, right upper extremity DVT. I saw him on 08/23/2023 for TIA I have seen and examined the patient, discussed with his nurse. His stronger, follows verbal commands, both arms are stronger Afebrile Blood culture, Urinalysis, 08/22/2023: Unremarkable UDS, 08/22/2023: Negative WBC/Hb/PLT'/MCV, 08/22/2023: 10.8/13.1/184/87.4, 10/28/2024: 15/8/487/89.3 10/31/2024: 24.3/9.1/77/88.4 Troponin 1 high-sensitivity, 08/22/2023: 336, 273/300 BUNs/CR, 08/22/2023: 15/1.45 10/31/2024: Two 9/2.42 GFR, 08/22/2023: 59 Liver function test, 10/04/2024: Unremarkable TBI/AST/ALT/AP, 10/04/2024: 0.6/410/335/31, 10/05/2024: 1.3/582/423/39, 10/31/2024: 3.6/54/98/117 TG/CHO L/LDL/HDL, 08/2023: 136/166/111/39 TSH, 08/23/2023: 4.25 Extremity venous study, right arm, 11/09/2024: Thrombus is seen in the cephalic vein in the forearm. DONAL, 08/23/2023: 1. No evidence of intracardiac source of embolus in the study conducted today. 2. Normal valves without significant masses or change vegetations were discernible. 3. No evidence of intra-atrial shunting by bubble study and color Doppler. 4. Mild atherosclerotic plaquing was visualized in the arch of the aorta without evidence of dissection in the visualized part CT head, 10/24/2024: 1. No intracranial hemorrhage or mass effect. 2. [id number] chronic microvascular ischemic changes. 3. Old bilateral basal ganglia lacunar infarcts. 4. Small bilateral mastoid effusions. CT abdomen/pelvis, 10/04/2024: 1. Extensive intra-abdominal free air concerning for perforated viscus. Surgical consultation is recommended. 2. Enteritis is seen in multiple loops of small bowel in the left hemiabdomen. 3. Moderate abdominopelvic ascites. 4. Small right pleural effusion. CTA neck, head, 08/22/2023:1. CTA head demonstrates no evidence of large vessel occlusion, aneurysm, or significant stenosis. 2. CTA neck demonstrates no evidence of carotid or vertebral dissection or significant stenosis. 3. No noncontrast CT head was performed. 4. Additional findings as detailed above MRI head, 08/23/2023: No acute infarct, intracranial hemorrhage, mass effect, or hydrocephalus. Moderate periventricular and deep subcortical white matter T2 hyperintensities which are nonspecific, but most likely related to sequela of chronic microvascular ischemic changes (I have reviewed the MRI films with our in-house radiologist, Dr. Black, the patient has bilateral multiple subacute/chronic infarcts) MRI head, 11/01/2024: No acute cerebrovascular ischemia. [id number] chronic microvascular ischemic changes. Bilateral mastoid effusions. Old bilateral basal ganglia / lopes radiata infarcts. vital signs Vital Sign Date Time Temp Pulse Resp B/P (MAP) Pulse Ox O2 Delivery O2 Flow Rate FiO2 11/15/24 16:00 88 11/15/24 16:00 24 100 T-piece 11 16 2711/15/24 16:00 98.2 154/78 (103) 98.2 Total Intake and Output 11/14/24 11/14/24 11/15/24 15:00 23:00 07:00 Intake Total 525 ml 285 ml 50 ml Output Total 600 ml 550 ml Balance 525 ml -315 ml -500 ml medications Current Medications Medications Dose Ordered Sig/Wally Route Start Time Stop Time Status Last Admin Dose Admin Ondansetron HCl 4 mg Q4HP PRN IV 10/04/24 11:45 Morphine Sulfate 2 mg Q4HPRN PRN IV 10/04/24 11:45 Cancel Nitroglycerin 0.4 mg Q5MINP PRN SL 10/04/24 11:45 Morphine Sulfate 2 mg Q30M PRN IV 10/04/24 11:45 Cancel Lorazepam 50 mg/ Sodium Chloride 50 ml @ 1 mls/hr Q24H IV 10/04/24 18:15 Cancel Amino Acids 0 ml @ 0 mls/hr PER PHARMACY IV 10/05/24 14:30 UNV Diagnostic Test (Pha) 1 strip Q6HR 10/05/24 18:00 11/15/24 12:06 1 STRIP Insulin Human Regular FOLLOW SLIDING SCALE Q6HR SC 10/05/24 18:00 11/03/24 17:23 2 UNITS Dextrose 50 ml UD IV 10/05/24 14:45 Meropenem 50 ml @ 17 mls/hr Q12HR IV 10/07/24 10:00 UNV Levalbuterol HCl 0.625 mg Q6HR NEB 10/13/24 12:00 11/15/24 11:46 0.625 MG Ipratropium [place] 0.5 mg Q6HR NEB 10/13/24 12:00 11/15/24 11:45 0.5 MG Morphine Sulfate 2 mg Q4HPRN PRN IV 10/21/24 11:30 11/10/24 05:15 2 MG Acetaminophen 650 mg Q6HP PRN GT 10/22/24 09:00 11/10/24 08:08 650 MG Sucralfate 1 gm BID@0600,2200 GT 10/28/24 22:00 11/15/24 05:38 1 GM Pantoprazole Sodium 50 ml @ 0 mls/hr Q0M IV 10/28/24 16:15 Cancel Midazolam HCl 1 mg Q2HP PRN IV 10/30/24 16:45 11/03/24 15:29 1 MG Epoetin Roger-epbx 10,000 unit MWF@2100 SC 10/31/24 21:00 11/14/24 21:40 10,000 UNIT Sodium Chloride 10 ml QSHIFT@,22 IV 10/31/24 22:00 11/15/24 09:48 10 ML Micafungin Sodium 100 mg/Sodium Chloride 100 ml @ 100 mls/hr DAILY IV 11/02/24 10:00 11/15/24 09:33 100 MLS/HR Acetaminophen/ Hydrocodone Bitart 1 tab Q4HPRN PRN PO 11/06/24 09:15 Enteral Nutritional Formula 1,000 ml 50ML/HR GT 11/06/24 09:30 Lactulose 30 ml DAILY JT 11/11/24 10:00 11/15/24 09:31 30 ML Amlodipine Besylate 10 mg DAILY GT 11/11/24 10:00 11/15/24 09:32 10 MG Labetalol HCl 10 mg Q2HPRN PRN IV 11/12/24 17:00 11/14/24 12:45 10 MG Hydralazine HCl 50 mg Q8HR GT 11/13/24 14:00 11/15/24 13:52 50 MG Labetalol HCl 300 mg Q12HR PO 11/13/24 10:00 11/15/24 09:34 300 MG Clonidine HCl 0.1 mg Q7D TD 11/13/24 07:00 11/13/24 08:35 0.1 MG Pantoprazole Sodium 40 mg BID IV 11/13/24 10:00 11/15/24 09:32 40 MG Metoclopramide HCl 5 mg Q8HR IV 11/13/24 14:00 11/15/24 13:56 5 MG Ertapenem 1 gm/ Sodium Chloride 50 ml @ 100 mls/hr DAILY IV 11/14/24 10:00 11/15/24 09:33 100 MLS/HR Lorazepam 1 mg Q4HP PRN IV 11/14/24 16:15 11/14/24 16:48 1 MG Dextrose 1,000 ml @ 75 mls/hr [id number] IV 11/15/24 12:15 11/15/24 12:42 75 MLS/HR objective General: the patient is well developed and nourished. No acute distress. MENTAL STATUS: Subjective SPEECH, LANGUAGE, HIGHER CORTICAL FUNCTION: He does not vocalize/status post tracheostomy. CRANIAL NERVES:Intact visual ansari to confrontation (visual thread). Pupils are equal, round and reactive. EOMs full and conjugate. Mandibular strength intact. Facial muscles symmetrical and strength intact. SENSATION: Sensation to touch and pinprick is unremarkable MOTOR: Normal muscle bulk. No fasciculations. No abnormal movements or posturing. Muscle power in the shoulders is 3/5, stronger in the elbows and the hands. Moves the right le/5 REFLEXES: Deep tendon reflexes are increased bilaterally, clonus in both knees . No pathological reflexes. CEREBELLAR/COORDINATION: Deferred GAIT/STATION: deferred laboratory and microbiology Laboratory Tests 11/15/24 03:42 Test 11/15/24 03:42 Range/Units Serum Glucose 85 74-106 mg/dL Problem List Altered mental status Metabolic encephalopathy secondary to sepsis, septic shock, pneumonia Hypoxic encephalopathy Viscus perforation status post surgical repair GI bleeding Anemia Fever/ Sepsis/septic shock Respiratory failure S/P tracheostomy Multiple strokes Secondary to history methamphetamine, cocaine, alcohol use History of alcohol abuse History of cocaine, methamphetamine abuse Hyperreflexia secondary to multiple strokes Right upper extremity DVT Assessment/Plan Monitoring Supportive treatment ICU care Stabilize vitals Respiratory suppor Blood culture Follow-up labs IV antibiotics Protonix TPN Quit tobacco smoking No more alcohol, street drug abuse Stroke risk factors discussed GI on case Infectious disease on case Pulmonology on case Hematology on case Nephrology on case More recommended per clinical course This medical document was created using an electronic medical record system with [employer] computerized dictation system. Although this document has been carefully reviewed, there may still be some phonetic and typographical errors. These areas are purely typographical due to imperfections of the software programs, and do not reflect any compromise in the patient's medical care. Prognosis poor Dietary Evaluation Review Comments: 1. Continue TPN to meet at least 75% estimated needs 2. Continue current POC Expected Outcomes/Goals: FU 2-3 days to meet adequate energy & protein within 7 days of NPO Protein Calorie Malnutrition: Severe (rn) Plan discussed with: Other CC Plasma Assessment Blood Product Administration S: [id number] LEANDRO BLACK MD Nov 15, 2024 17:05
--- NOTE | 2024-11-15 18:11 | DVHPN2 ---
Progress Note Date Seen: Nov 15, 2024 Has the PT tested + for MRSA If YES, has PT been informed?: No Medical Necessity Reason Pt with a Central, PICC or Fol: No The following are medically ne: Central Line, Gómez Catheter Reason for gómez catheter: Strict I&O Subjective Patient reports: Other Review of Systems: Deferred Objective vital signs Vital Sign Date Time Temp Pulse Resp B/P (MAP) Pulse Ox O2 Delivery O2 Flow Rate FiO2 11/15/24 16:00 88 11/15/24 16:00 24 100 T-piece 11 16 2711/15/24 16:00 98.2 154/78 (103) 98.2 Total Intake and Output 11/14/24 11/14/24 11/15/24 14:59 22:59 06:59 Intake Total 400 ml 410 ml 50 ml Output Total 600 ml 550 ml Balance 400 ml -190 ml -500 ml medications Current Medications Medications Dose Ordered Sig/Wally Route Start Time Stop Time Status Last Admin Dose Admin Ondansetron HCl 4 mg Q4HP PRN IV 10/04/24 11:45 Morphine Sulfate 2 mg Q4HPRN PRN IV 10/04/24 11:45 Cancel Nitroglycerin 0.4 mg Q5MINP PRN SL 10/04/24 11:45 Morphine Sulfate 2 mg Q30M PRN IV 10/04/24 11:45 Cancel Lorazepam 50 mg/ Sodium Chloride 50 ml @ 1 mls/hr Q24H IV 10/04/24 18:15 Cancel Amino Acids 0 ml @ 0 mls/hr PER PHARMACY IV 10/05/24 14:30 UNV Diagnostic Test (Pha) 1 strip Q6HR 10/05/24 18:00 11/15/24 12:06 1 STRIP Insulin Human Regular FOLLOW SLIDING SCALE Q6HR SC 10/05/24 18:00 11/03/24 17:23 2 UNITS Dextrose 50 ml UD IV 10/05/24 14:45 Meropenem 50 ml @ 17 mls/hr Q12HR IV 10/07/24 10:00 UNV Levalbuterol HCl 0.625 mg Q6HR NEB 10/13/24 12:00 11/15/24 11:46 0.625 MG Ipratropium [employer] 0.5 mg Q6HR NEB 10/13/24 12:00 11/15/24 11:45 0.5 MG Morphine Sulfate 2 mg Q4HPRN PRN IV 10/21/24 11:30 11/10/24 05:15 2 MG Acetaminophen 650 mg Q6HP PRN GT 10/22/24 09:00 11/10/24 08:08 650 MG Sucralfate 1 gm BID@0600,2200 GT 10/28/24 22:00 11/15/24 05:38 1 GM Pantoprazole Sodium 50 ml @ 0 mls/hr Q0M IV 10/28/24 16:15 Cancel Midazolam HCl 1 mg Q2HP PRN IV 10/30/24 16:45 11/03/24 15:29 1 MG Epoetin Roger-epbx 10,000 unit MWF@2100 SC 10/31/24 21:00 11/14/24 21:40 10,000 UNIT Sodium Chloride 10 ml QSHIFT@10,22 IV 10/31/24 22:00 11/15/24 09:48 10 ML Micafungin Sodium 100 mg/Sodium Chloride 100 ml @ 100 mls/hr DAILY IV 11/02/24 10:00 11/15/24 09:33 100 MLS/HR Acetaminophen/ Hydrocodone Bitart 1 tab Q4HPRN PRN PO 11/06/24 09:15 Enteral Nutritional Formula 1,000 ml 50ML/HR GT 11/06/24 09:30 Lactulose 30 ml DAILY JT 11/11/24 10:00 11/15/24 09:31 30 ML Amlodipine Besylate 10 mg DAILY GT 11/11/24 10:00 11/15/24 09:32 10 MG Labetalol HCl 10 mg Q2HPRN PRN IV 11/12/24 17:00 11/14/24 12:45 10 MG Hydralazine HCl 50 mg Q8HR GT 11/13/24 14:00 11/15/24 13:52 50 MG Labetalol HCl 300 mg Q12HR PO 11/13/24 10:00 11/15/24 09:34 300 MG Clonidine HCl 0.1 mg Q7D TD 11/13/24 07:00 11/13/24 08:35 0.1 MG Pantoprazole Sodium 40 mg BID IV 11/13/24 10:00 11/15/24 09:32 40 MG Metoclopramide HCl 5 mg Q8HR IV 11/13/24 14:00 11/15/24 13:56 5 MG Ertapenem 1 gm/ Sodium Chloride 50 ml @ 100 mls/hr DAILY IV 11/14/24 10:00 11/15/24 09:33 100 MLS/HR Lorazepam 1 mg Q4HP PRN IV 11/14/24 16:15 11/14/24 16:48 1 MG Dextrose 1,000 ml @ 75 mls/hr [id number] IV 11/15/24 12:15 11/15/24 12:42 75 MLS/HR laboratory and microbiology Laboratory Tests 11/15/24 03:42 Test 11/15/24 03:42 Range/Units Serum Glucose 85 74-106 mg/dL Microbiology Date/Time Source Procedure Growth Status 11/14/24 08:27 Blood Blood Culture - Preliminary NO GROWTH AFTER 24 HOURS OF INCUBATION. Resulted 11/10/24 22:44 Voided Urine Urine Culture - Final Complete 10/18/24 09:21 Pleural Fluid Gram Stain - Final Complete 10/18/24 09:21 Pleural Fluid Body Fluid Culture - Final Complete 10/16/24 12:05 Bronchial Washings Gram Stain - Final Complete 10/16/24 12:05 Bronchial Washings Respiratory Culture - Final Complete 10/04/24 17:10 Nose MRSA Screen - Final Complete Problem List/Assessment/Plan Problem List/Assessment/Plan Acute kidney injury /ATN requiring acute inpatient hemodialysis--now off HD Acute respiratory failure -> now trach Perforated gastric ulcer status post exploratory laparoscopic surgery Hypokalemia Anemia due to chronic disease/inflammation tachycardia + Bcx fungemia hypernatremia recs d5w iv k replace Plan discussed with: Other My Orders My Orders Orders - DAYANARA BLACKWOOD MD Procedure Category Date Status Time D5w 5% (Dextrose 5%) PHA 11/15/24 In Process 12:15 Dietary Evaluation Review Comments: 1. Continue TPN to meet at least 75% estimated needs 2. Continue current POC Expected Outcomes/Goals: FU 2-3 days to meet adequate energy & protein within 7 days of NPO Protein Calorie Malnutrition: Severe (rn) CC Plasma Assessment Blood Product Administration S: [id number] DAYANARA BLACKWOOD MD Nov 15, 2024 18:11
--- NOTE | 2024-11-15 23:25 | DVHPN2 ---
Subjective The patient is seen and examined at bedside. No change overnight. Still continuing to have high residual. Was started on clear liquid diet by GI specialist Reviewed: Care Plan, H&P, Labs, Medications, Previous Orders, Radiology, Other (Consultants) Changes from previous H/P or p: No Changes General: Per HPI Objective Vitals Vital Signs Date Time Temp Pulse Resp B/P (MAP) Pulse Ox O2 Delivery O2 Flow Rate FiO2 11/15/24 22:12 87 146/82 11/15/24 20:00 22 100 T-piece 11 16 2711/15/24 16:00 98.2 98.2 Intake/Output Intake and Output 11/15/24 07:00 Intake Total 860 ml Output Total 1150 ml Balance -290 ml Intake Oral 10 ml IV Total 800 ml Tube Feeding 50 ml Output Urine Total 1000 ml Drainage Total 150 ml # Bowel Movements 2 General Appearance: Alert, Oriented X3, Cooperative, mild distress, Other HEENT: Atraumatic, PERRLA Lungs: Clear to auscultation, Normal air movement, Other Cardiovascular: Normal S1, Normal S2, Other Abdomen: Other Extremities: Normal pulses Neuro: Other Skin: Dry, Intact, Wounds, Other Psych/Mental Status: Other Medications Current Medications Medications Dose Ordered Sig/Wally Route Start Time Stop Time Status Last Admin Dose Admin Ondansetron HCl 4 mg Q4HP PRN IV 10/04/24 11:45 Morphine Sulfate 2 mg Q4HPRN PRN IV 10/04/24 11:45 Cancel Nitroglycerin 0.4 mg Q5MINP PRN SL 10/04/24 11:45 Morphine Sulfate 2 mg Q30M PRN IV 10/04/24 11:45 Cancel Lorazepam 50 mg/ Sodium Chloride 50 ml @ 1 mls/hr Q24H IV 10/04/24 18:15 Cancel Amino Acids 0 ml @ 0 mls/hr PER PHARMACY IV 10/05/24 14:30 UNV Diagnostic Test (Pha) 1 strip Q6HR 10/05/24 18:00 11/15/24 18:13 1 STRIP Insulin Human Regular FOLLOW SLIDING SCALE Q6HR SC 10/05/24 18:00 11/03/24 17:23 2 UNITS Dextrose 50 ml UD IV 10/05/24 14:45 Meropenem 50 ml @ 17 mls/hr Q12HR IV 10/07/24 10:00 UNV Levalbuterol HCl 0.625 mg Q6HR NEB 10/13/24 12:00 11/15/24 18:42 0.625 MG Ipratropium [place] 0.5 mg Q6HR NEB 10/13/24 12:00 11/15/24 18:43 0.5 MG Morphine Sulfate 2 mg Q4HPRN PRN IV 10/21/24 11:30 11/10/24 05:15 2 MG Acetaminophen 650 mg Q6HP PRN GT 10/22/24 09:00 11/10/24 08:08 650 MG Sucralfate 1 gm BID@0600,2200 GT 10/28/24 22:00 11/15/24 22:12 1 GM Pantoprazole Sodium 50 ml @ 0 mls/hr Q0M IV 10/28/24 16:15 Cancel Midazolam HCl 1 mg Q2HP PRN IV 10/30/24 16:45 11/03/24 15:29 1 MG Epoetin Roger-epbx 10,000 unit MWF@2100 IL 10/31/24 21:00 11/14/24 21:40 10,000 UNIT Sodium Chloride 10 ml QSHIFT@10,22 IV 10/31/24 22:00 11/15/24 22:12 10 ML Micafungin Sodium 100 mg/Sodium Chloride 100 ml @ 100 mls/hr DAILY IV 11/02/24 10:00 11/15/24 09:33 100 MLS/HR Acetaminophen/ Hydrocodone Bitart 1 tab Q4HPRN PRN PO 11/06/24 09:15 Enteral Nutritional Formula 1,000 ml 50ML/HR GT 11/06/24 09:30 Lactulose 30 ml DAILY JT 11/11/24 10:00 11/15/24 09:31 30 ML Amlodipine Besylate 10 mg DAILY GT 11/11/24 10:00 11/15/24 09:32 10 MG Labetalol HCl 10 mg Q2HPRN PRN IV 11/12/24 17:00 11/14/24 12:45 10 MG Hydralazine HCl 50 mg Q8HR GT 11/13/24 14:00 11/15/24 22:11 50 MG Labetalol HCl 300 mg Q12HR PO 11/13/24 10:00 11/15/24 22:12 300 MG Clonidine HCl 0.1 mg Q7D TD 11/13/24 07:00 11/13/24 08:35 0.1 MG Pantoprazole Sodium 40 mg BID IV 11/13/24 10:00 11/15/24 22:12 40 MG Metoclopramide HCl 5 mg Q8HR IV 11/13/24 14:00 11/15/24 22:12 5 MG Ertapenem 1 gm/ Sodium Chloride 50 ml @ 100 mls/hr DAILY IV 11/14/24 10:00 11/15/24 09:33 100 MLS/HR Lorazepam 1 mg Q4HP PRN IV 11/14/24 16:15 11/14/24 16:48 1 MG Dextrose 1,000 ml @ 75 mls/hr [id number] IV 11/15/24 12:15 11/15/24 12:42 75 MLS/HR Laboratory Results Laboratory Tests 11/15/24 03:42 Chemistry Test 11/15/24 03:42 Calcium Level 8.9 mg/dL (8.7-10.4) Urinalysis Test 10/05/24 15:05 10/26/24 20:33 11/07/24 12:40 Urine Mucus Few (None Seen) Urine Color Light-yellow (Yellow) Urine Clarity Clear (Clear) Urine pH 7.0 (5.0-9.0) Urine Specific [place] 1.014 (1.001-1.035) Urine Protein 1+ (Negative) H Urine Ketones Negative (Negative) Urine Blood 1+ /uL (Negative) H Urine Nitrite Negative (Negative) Urine Bilirubin Negative (Negative) Urine Urobilinogen Normal mg/dL (Negative) Urine Leukocyte Esterase Negative /uL (Negative) Urine RBC 1 /hpf (0 - 3) Urine Microscopic WBC 3 /HPF (0-3) Urine Squamous Epithelial Cells None seen /hpf (<5) Urine Bacteria Few /hpf (None Seen) H Urine Glucose Normal mg/dL (Normal) Urine Creatinine 64.63 mg/dL (30.0-125.0) Urine Protein/Creatinine Ratio 3.11 Urine Sodium 34 mmol/L (40-220) L Urine Total Protein 200.7 mg/dL (1-14) H Microbiology Microbiology Date/Time Source Procedure Growth Status 11/14/24 08:27 Blood Blood Culture - Preliminary NO GROWTH AFTER 24 HOURS OF INCUBATION. Resulted 11/10/24 22:44 Voided Urine Urine Culture - Final Complete 10/18/24 09:21 Pleural Fluid Gram Stain - Final Complete 10/18/24 09:21 Pleural Fluid Body Fluid Culture - Final Complete 10/16/24 12:05 Bronchial Washings Gram Stain - Final Complete 10/16/24 12:05 Bronchial Washings Respiratory Culture - Final Complete 10/04/24 17:10 Nose MRSA Screen - Final Complete Labs and/or images reviewed: Labs reviewed by me Assessment/Plan Assessment/Plan -severe septic shock -pneumoperitoneum secondary to perforated gastric ulcer -acute kidney injury, hemodynamically mediated, probable VMN -acute hypoxic respiratory failure -shock liver -nicotine dependence -history of CVA -right upper extremity DVT -multifocal pneumonia, probable Gram-positive/Gram-negative etiology -anemia secondary to nutrition, renal failure -bilateral pleural effusions -small left pneumothorax -Failure of ventilator weaning, status post tracheostomy -fungemia Plan: Events: Patient continues to be hypertensive. Increase labetalol to 300 mg twice a day. Increase hydralazine to 50 mg 3 times a day. Amlodipine 10 mg p.o. daily Clonidine patch. Continue IV p.r.n. medication. Patient continues to have high residuals despite being on Reglan. Repeat swallow evaluation pending. Deflate trach cuff, Passy Sam valve if okay with pulmonology. Blood culture with no growth of yeast. Fevers resolved. No plans for cholecystectomy at this time. -Free water -increase antihypertensives -GI consultation: Discussed case. -increase tube feeding to 50 mL/hour as tolerated -antibiotic therapy: Meropenem, micafungin -nephrology consultation: Daily assessment for hemodialysis -repeat labs, chest x-ray, ABG in a.m. Critical care time spent with patient discussing and formulating plan of care: 40 minutes. This does not include time spent performing procedures. This medical document was created using an electronic medical record system with [employer] system. Although this document has been carefully reviewed, there may still be some phonetic and typographical errors. These areas are purely typographical due to imperfections of the software programs, and do not reflect any compromise in the patient's medical care. Plan discussed with: Patient Date of Service: Nov 15, 2024 Billing Provider: HOLLAND GRANT MD Common Visit Codes: [id number] CARE 30-74 MIN HOLLAND GRANT MD Nov 15, 2024 23:25
--- NOTE | 2024-11-15 23:30 | DVHPN2 ---
Progress Note - Dictate Date Seen: Nov 15, 2024 Has the PT tested + for MRSA If YES, has PT been informed?: No Medical Necessity Reason Pt with a Central, PICC or Fol: No The following are medically ne: Central Line, Gómez Catheter Reason for gómez catheter: Strict I&O Subjective Patient seen and examined at bedside. On mechanical ventilator. S/p trach Overnight events reviewed. vital signs Vital Sign Date Time Temp Pulse Resp B/P (MAP) Pulse Ox O2 Delivery O2 Flow Rate FiO2 11/15/24 22:12 87 146/82 11/15/24 20:00 22 100 T-piece 11 16 2711/15/24 16:00 98.2 98.2 Total Intake and Output 11/14/24 11/14/24 11/15/24 15:00 23:00 07:00 Intake Total 525 ml 285 ml 50 ml Output Total 600 ml 550 ml Balance 525 ml -315 ml -500 ml medications Current Medications Medications Dose Ordered Sig/Wally Route Start Time Stop Time Status Last Admin Dose Admin Ondansetron HCl 4 mg Q4HP PRN IV 10/04/24 11:45 Morphine Sulfate 2 mg Q4HPRN PRN IV 10/04/24 11:45 Cancel Nitroglycerin 0.4 mg Q5MINP PRN SL 10/04/24 11:45 Morphine Sulfate 2 mg Q30M PRN IV 10/04/24 11:45 Cancel Lorazepam 50 mg/ Sodium Chloride 50 ml @ 1 mls/hr Q24H IV 10/04/24 18:15 Cancel Amino Acids 0 ml @ 0 mls/hr PER PHARMACY IV 10/05/24 14:30 UNV Diagnostic Test (Pha) 1 strip Q6HR 10/05/24 18:00 11/15/24 18:13 1 STRIP Insulin Human Regular FOLLOW SLIDING SCALE Q6HR SC 10/05/24 18:00 11/03/24 17:23 2 UNITS Dextrose 50 ml UD IV 10/05/24 14:45 Meropenem 50 ml @ 17 mls/hr Q12HR IV 10/07/24 10:00 UNV Levalbuterol HCl 0.625 mg Q6HR NEB 10/13/24 12:00 11/15/24 18:42 0.625 MG Ipratropium [place] 0.5 mg Q6HR NEB 10/13/24 12:00 11/15/24 18:43 0.5 MG Morphine Sulfate 2 mg Q4HPRN PRN IV 10/21/24 11:30 11/10/24 05:15 2 MG Acetaminophen 650 mg Q6HP PRN GT 10/22/24 09:00 11/10/24 08:08 650 MG Sucralfate 1 gm BID@0600,2200 GT 10/28/24 22:00 11/15/24 22:12 1 GM Pantoprazole Sodium 50 ml @ 0 mls/hr Q0M IV 10/28/24 16:15 Cancel Midazolam HCl 1 mg Q2HP PRN IV 10/30/24 16:45 11/03/24 15:29 1 MG Epoetin Roger-epbx 10,000 unit MWF@2100 SC 10/31/24 21:00 11/14/24 21:40 10,000 UNIT Sodium Chloride 10 ml QSHIFT@10,22 IV 10/31/24 22:00 11/15/24 22:12 10 ML Micafungin Sodium 100 mg/Sodium Chloride 100 ml @ 100 mls/hr DAILY IV 11/02/24 10:00 11/15/24 09:33 100 MLS/HR Acetaminophen/ Hydrocodone Bitart 1 tab Q4HPRN PRN PO 11/06/24 09:15 Enteral Nutritional Formula 1,000 ml 50ML/HR GT 11/06/24 09:30 Lactulose 30 ml DAILY JT 11/11/24 10:00 11/15/24 09:31 30 ML Amlodipine Besylate 10 mg DAILY GT 11/11/24 10:00 11/15/24 09:32 10 MG Labetalol HCl 10 mg Q2HPRN PRN IV 11/12/24 17:00 11/14/24 12:45 10 MG Hydralazine HCl 50 mg Q8HR GT 11/13/24 14:00 11/15/24 22:11 50 MG Labetalol HCl 300 mg Q12HR PO 11/13/24 10:00 11/15/24 22:12 300 MG Clonidine HCl 0.1 mg Q7D TD 11/13/24 07:00 11/13/24 08:35 0.1 MG Pantoprazole Sodium 40 mg BID IV 11/13/24 10:00 11/15/24 22:12 40 MG Metoclopramide HCl 5 mg Q8HR IV 11/13/24 14:00 11/15/24 22:12 5 MG Ertapenem 1 gm/ Sodium Chloride 50 ml @ 100 mls/hr DAILY IV 11/14/24 10:00 11/15/24 09:33 100 MLS/HR Lorazepam 1 mg Q4HP PRN IV 11/14/24 16:15 11/14/24 16:48 1 MG Dextrose 1,000 ml @ 75 mls/hr [id number] IV 11/15/24 12:15 11/15/24 12:42 75 MLS/HR objective Gen.: Patient lying in bed in medical ICU. S/p trach. On mechanical ventilator. Head: Normocephalic, atraumatic. Eyes: PERRLA. Ears: Normal external anatomy. Throat: Endotracheal tube and orogastric tube in place. Neck: Trach in place. Chest: Transmitted breath sounds bilaterally. Decreased air entry bilaterally. No wheezing. Bibasilar crackles. Cardiovascular: Positive S1, positive S2. Regular rate and rhythm. Abdomen: Positive bowel sounds in all 4 quadrants. Soft, nontender, nondistended. : Gómez in place. Normal external genitalia. Rectal: Deferred. Skin: Warm, dry. Intact. Extremities: 2+ radial pulses bilaterally. No lower extremity edema. Neuro: Off sedation laboratory and microbiology Laboratory Tests 11/15/24 03:42 Test 11/15/24 03:42 Range/Units Serum Glucose 85 74-106 mg/dL Assessment/Plan Impression: Acute hypoxic respiratory failure On mechanical ventilator S/p tracheostomy Septic shock Perforated viscus s/p repair Nicotine dependence Events: S/p tracheostomy Tolerating trach collar Remains on vent support AC mode with RR 18, VT 550, PEEP 5, FiO2 30% Repeat blood cultures showed no growth x24 hours Trach care per RT. IV fluids - D5W at 75 ml/hr. Continue bronchodilators Continue antifungal Continue antibiotics Monitor Hgb Protonix BID for GI ppx Sucralfate. GI recs appreciated. Labs and imaging reviewed Management: Vent support as needed Titrate to maintain sats 90% or above Trach collar Trach care per RT. Follow up with General Surgery Continue antibiotics and antifungals F/u cultures Bronchodilators Monitor renal function Monitor electrolytes Supplement as needed HD per nephrology Nutritional support Tube feedings DVT prophylaxis Prognosis: Poor given patient's multiple co-morbidities. Condition: Critical Rest of plan per hospitalist and other consultants. A total of 35 minutes of critical care time was spent reviewing the patient record, examining the patient, making a diagnostic and therapeutic plan, discussing this plan with the medical personnel, following up on diagnostic studies and following the patient for clinical stability excluding any and all procedures. At least 50% of this time was spent in direct, [id number] contact. Thank you, PASTOR Werner, for allowing me to participate in this patient's care. Further recommendations will depend on the patient's clinical course. Please do not hesitate to contact me if you have any questions or concerns. This medical document was created using an electronic medical record system with [email or web address] dictation system. Although these documentations are being carefully reviewed, there may still be some phonetic and typographical changes. The errors are purely typographical, due to imperfection on the software program, and do not reflect any compromise in the patient's medical care. Dietary Evaluation Review Comments: 1. Continue TPN to meet at least 75% estimated needs 2. Continue current POC Expected Outcomes/Goals: FU 2-3 days to meet adequate energy & protein within 7 days of NPO Protein Calorie Malnutrition: Severe (rn) Plan discussed with: Other (JASPER Ambrocio) Critical Care Time(min): 35 CC Plasma Assessment Blood Product Administration S: [id number] ARIE LOPEZ MD Nov 15, 2024 23:30
[2024-11-16] VITALS (34 sets, daily range): BP systolic 130–169; BP diastolic 58–84; PULSE 76–92; RESP 18–28; TEMP 97.8–99.3; O2SAT 95–100
[2024-11-16 03:51] LABS: Nucleated Red Blood Cells % 0.1 %
[2024-11-16 03:54] LABS: Hematocrit 25.4 % (41.0-53.0); Hemoglobin 8.3 g/dL (13.5-17.5); Mean Corpuscular Hemoglobin 28.6 pg (28.0-32.0); Mean Corpuscular Volume 87.7 fL (80.0-100.0)
[2024-11-16 04:04] LABS: Sodium 143 mmol/L (136-145)
[2024-11-16 04:05] LABS: Anion Gap 11 (5-15); Calcium 8.8 mg/dL (8.7-10.4)
[2024-11-16 04:10] LABS: BUN/Creatinine Ratio 16.0 (10.0-20.0)
[2024-11-16 04:17] LABS: Blood Urea Nitrogen 28 mg/dL (9-23); Carbon Dioxide 20 mmol/L (20-31); Chloride 112 mmol/L (98-107); Glucose 107 mg/dL (74-106); Potassium 3.2 mmol/L (3.5-5.1)
[2024-11-16] MEDS ORDERED: POTASSIUM CHL 20MEQ/50ML 50 ML IV ONE (05:00)
[2024-11-16] MEDS: POTASSIUM CHL 20MEQ/100ML 100 ML IV ONE ×2 (05:29→14:18)
--- NOTE | 2024-11-16 13:48 | DVHPN2 ---
Subjective The patient is seen and examined at bedside. Still not able to tolerate tube feeding. Patient tolerated clear liquid diet. Reviewed: Care Plan, H&P, Labs, Medications, Previous Orders, Radiology, Other (Consultants) Changes from previous H/P or p: No Changes General: Per HPI Objective Vitals Vital Signs Date Time Temp Pulse Resp B/P (MAP) Pulse Ox O2 Delivery O2 Flow Rate FiO2 11/16/24 13:23 157/65 11/16/24 12:00 80 11/16/24 12:00 21 96 T-piece 11 15 28 11/16/24 12:00 98.2 98.2 Intake/Output Intake and Output 11/16/24 07:00 Intake Total 2355 ml Output Total 1140 ml Balance 1215 ml Intake Oral 780 ml IV Total 1575 ml Tube Feeding 0 ml Output Urine Total 850 ml Drainage Total 290 ml # Bowel Movements 1 General Appearance: Alert, Oriented X3, Cooperative, mild distress, Other HEENT: Atraumatic, PERRLA Lungs: Clear to auscultation, Normal air movement, Other Cardiovascular: Normal S1, Normal S2, Other Abdomen: Other Extremities: Normal pulses Neuro: Other Skin: Dry, Intact, Wounds, Other Psych/Mental Status: Other Medications Current Medications Medications Dose Ordered Sig/Wally Route Start Time Stop Time Status Last Admin Dose Admin Ondansetron HCl 4 mg Q4HP PRN IV 10/04/24 11:45 Morphine Sulfate 2 mg Q4HPRN PRN IV 10/04/24 11:45 Cancel Nitroglycerin 0.4 mg Q5MINP PRN SL 10/04/24 11:45 Morphine Sulfate 2 mg Q30M PRN IV 10/04/24 11:45 Cancel Lorazepam 50 mg/ Sodium Chloride 50 ml @ 1 mls/hr Q24H IV 10/04/24 18:15 Cancel Amino Acids 0 ml @ 0 mls/hr PER PHARMACY IV 10/05/24 14:30 UNV Diagnostic Test (Pha) 1 strip Q6HR 10/05/24 18:00 11/16/24 12:02 1 STRIP Insulin Human Regular FOLLOW SLIDING SCALE Q6HR SC 10/05/24 18:00 11/03/24 17:23 2 UNITS Dextrose 50 ml UD IV 10/05/24 14:45 Meropenem 50 ml @ 17 mls/hr Q12HR IV 10/07/24 10:00 UNV Levalbuterol HCl 0.625 mg Q6HR NEB 10/13/24 12:00 11/16/24 11:01 0.625 MG Ipratropium [place] 0.5 mg Q6HR NEB 10/13/24 12:00 11/16/24 11:01 0.5 MG Morphine Sulfate 2 mg Q4HPRN PRN IV 10/21/24 11:30 11/10/24 05:15 2 MG Acetaminophen 650 mg Q6HP PRN GT 10/22/24 09:00 11/10/24 08:08 650 MG Sucralfate 1 gm BID@0600,2200 GT 10/28/24 22:00 11/16/24 05:30 1 GM Pantoprazole Sodium 50 ml @ 0 mls/hr Q0M IV 10/28/24 16:15 Cancel Midazolam HCl 1 mg Q2HP PRN IV 10/30/24 16:45 11/03/24 15:29 1 MG Epoetin Roger-epbx 10,000 unit MWF@2100 SC 10/31/24 21:00 11/14/24 21:40 10,000 UNIT Sodium Chloride 10 ml QSHIFT@10,22 IV 10/31/24 22:00 11/16/24 09:19 10 ML Micafungin Sodium 100 mg/Sodium Chloride 100 ml @ 100 mls/hr DAILY IV 11/02/24 10:00 11/16/24 09:18 100 MLS/HR Acetaminophen/ Hydrocodone Bitart 1 tab Q4HPRN PRN PO 11/06/24 09:15 Enteral Nutritional Formula 1,000 ml 50ML/HR GT 11/06/24 09:30 Lactulose 30 ml DAILY JT 11/11/24 10:00 11/15/24 09:31 30 ML Amlodipine Besylate 10 mg DAILY GT 11/11/24 10:00 11/16/24 09:17 10 MG Labetalol HCl 10 mg Q2HPRN PRN IV 11/12/24 17:00 11/14/24 12:45 10 MG Hydralazine HCl 50 mg Q8HR GT 11/13/24 14:00 11/16/24 13:23 50 MG Labetalol HCl 300 mg Q12HR PO 11/13/24 10:00 11/16/24 09:17 300 MG Clonidine HCl 0.1 mg Q7D TD 11/13/24 07:00 11/13/24 08:35 0.1 MG Pantoprazole Sodium 40 mg BID IV 11/13/24 10:00 11/16/24 09:18 40 MG Metoclopramide HCl 5 mg Q8HR IV 11/13/24 14:00 11/16/24 13:23 5 MG Ertapenem 1 gm/ Sodium Chloride 50 ml @ 100 mls/hr DAILY IV 11/14/24 10:00 11/16/24 09:18 100 MLS/HR Lorazepam 1 mg Q4HP PRN IV 11/14/24 16:15 11/14/24 16:48 1 MG Dextrose 1,000 ml @ 75 mls/hr [id number] IV 11/15/24 12:15 11/16/24 02:00 75 MLS/HR Laboratory Results Laboratory Tests 11/16/24 03:10 Chemistry Test 11/16/24 03:10 Calcium Level 8.8 mg/dL (8.7-10.4) Urinalysis Test 10/05/24 15:05 10/26/24 20:33 11/07/24 12:40 Urine Mucus Few (None Seen) Urine Color Light-yellow (Yellow) Urine Clarity Clear (Clear) Urine pH 7.0 (5.0-9.0) Urine Specific [place] 1.014 (1.001-1.035) Urine Protein 1+ (Negative) H Urine Ketones Negative (Negative) Urine Blood 1+ /uL (Negative) H Urine Nitrite Negative (Negative) Urine Bilirubin Negative (Negative) Urine Urobilinogen Normal mg/dL (Negative) Urine Leukocyte Esterase Negative /uL (Negative) Urine RBC 1 /hpf (0 - 3) Urine Microscopic WBC 3 /HPF (0-3) Urine Squamous Epithelial Cells None seen /hpf (<5) Urine Bacteria Few /hpf (None Seen) H Urine Glucose Normal mg/dL (Normal) Urine Creatinine 64.63 mg/dL (30.0-125.0) Urine Protein/Creatinine Ratio 3.11 Urine Sodium 34 mmol/L (40-220) L Urine Total Protein 200.7 mg/dL (1-14) H Microbiology Microbiology Date/Time Source Procedure Growth Status 11/14/24 08:27 Blood Blood Culture - Preliminary NO GROWTH AFTER 48 HOURS OF INCUBATION. Resulted 11/10/24 22:44 Voided Urine Urine Culture - Final Complete 10/18/24 09:21 Pleural Fluid Gram Stain - Final Complete 10/18/24 09:21 Pleural Fluid Body Fluid Culture - Final Complete 10/16/24 12:05 Bronchial Washings Gram Stain - Final Complete 10/16/24 12:05 Bronchial Washings Respiratory Culture - Final Complete 10/04/24 17:10 Nose MRSA Screen - Final Complete Labs and/or images reviewed: Labs reviewed by me Assessment/Plan Assessment/Plan -severe septic shock -pneumoperitoneum secondary to perforated gastric ulcer -acute kidney injury, hemodynamically mediated, probable VMN -acute hypoxic respiratory failure -shock liver -nicotine dependence -history of CVA -right upper extremity DVT -multifocal pneumonia, probable Gram-positive/Gram-negative etiology -anemia secondary to nutrition, renal failure -bilateral pleural effusions -small left pneumothorax -Failure of ventilator weaning, status post tracheostomy -fungemia Plan: Events: Patient continues to be hypertensive. Increase labetalol to 300 mg twice a day. Increase hydralazine to 50 mg 3 times a day. Amlodipine 10 mg p.o. daily Clonidine patch. Continue IV p.r.n. medication. Patient continues to have high residuals despite being on Reglan. Repeat swallow evaluation pending. Deflate trach cuff, Passy Rogers valve if okay with pulmonology. Blood culture with no growth of yeast. Fevers resolved. No plans for cholecystectomy at this time. -Free water -increase antihypertensives -GI consultation: Discussed case. -hold tube feeding for now. Patient is still have about 300-400 residual per day. Patient was started on clear liquid diet by GI specialist yesterday. Patient has seemed to tolerate -antibiotic therapy: Meropenem, micafungin -nephrology consultation: Daily assessment for hemodialysis -repeat labs, chest x-ray, ABG in a.m. Critical care time spent with patient discussing and formulating plan of care: 39 minutes. This does not include time spent performing procedures. This medical document was created using an electronic medical record system with [employer] system. Although this document has been carefully reviewed, there may still be some phonetic and typographical errors. These areas are purely typographical due to imperfections of the software programs, and do not reflect any compromise in the patient's medical care. Plan discussed with: Patient, Other (RN) Date of Service: Nov 16, 2024 Billing Provider: HOLLAND GRANT MD Common Visit Codes: [id number] CARE 30-74 MIN HOLLAND GRANT MD Nov 16, 2024 13:48
--- NOTE | 2024-11-16 15:46 | DVHPN2 ---
Progress Note Date Seen: Nov 16, 2024 Has the PT tested + for MRSA If YES, has PT been informed?: No Medical Necessity Reason Pt with a Central, PICC or Fol: No The following are medically ne: Central Line, Gómez Catheter Reason for gómez catheter: Strict I&O Subjective Patient reports: No new complaints Review of Systems: Deferred Objective vital signs Vital Sign Date Time Temp Pulse Resp B/P (MAP) Pulse Ox O2 Delivery O2 Flow Rate FiO2 11/16/24 14:00 81 11/16/24 14:00 22 98 T-piece 11 16 2711/16/24 13:23 157/65 11/16/24 12:00 98.2 98.2 Total Intake and Output 11/15/24 11/15/24 11/16/24 15:00 23:00 07:00 Intake Total 375 ml 900 ml 1080 ml Output Total 590 ml 550 ml Balance 375 ml 310 ml 530 ml medications Current Medications Medications Dose Ordered Sig/Wally Route Start Time Stop Time Status Last Admin Dose Admin Ondansetron HCl 4 mg Q4HP PRN IV 10/04/24 11:45 Morphine Sulfate 2 mg Q4HPRN PRN IV 10/04/24 11:45 Cancel Nitroglycerin 0.4 mg Q5MINP PRN SL 10/04/24 11:45 Morphine Sulfate 2 mg Q30M PRN IV 10/04/24 11:45 Cancel Lorazepam 50 mg/ Sodium Chloride 50 ml @ 1 mls/hr Q24H IV 10/04/24 18:15 Cancel Amino Acids 0 ml @ 0 mls/hr PER PHARMACY IV 10/05/24 14:30 UNV Diagnostic Test (Pha) 1 strip Q6HR 10/05/24 18:00 11/16/24 12:02 1 STRIP Insulin Human Regular FOLLOW SLIDING SCALE Q6HR SC 10/05/24 18:00 11/03/24 17:23 2 UNITS Dextrose 50 ml UD IV 10/05/24 14:45 Meropenem 50 ml @ 17 mls/hr Q12HR IV 10/07/24 10:00 UNV Levalbuterol HCl 0.625 mg Q6HR NEB 10/13/24 12:00 11/16/24 11:01 0.625 MG Ipratropium [place] 0.5 mg Q6HR NEB 10/13/24 12:00 11/16/24 11:01 0.5 MG Morphine Sulfate 2 mg Q4HPRN PRN IV 10/21/24 11:30 11/10/24 05:15 2 MG Acetaminophen 650 mg Q6HP PRN GT 10/22/24 09:00 11/10/24 08:08 650 MG Sucralfate 1 gm BID@0600,2200 GT 10/28/24 22:00 11/16/24 05:30 1 GM Pantoprazole Sodium 50 ml @ 0 mls/hr Q0M IV 10/28/24 16:15 Cancel Midazolam HCl 1 mg Q2HP PRN IV 10/30/24 16:45 11/03/24 15:29 1 MG Epoetin Roger-epbx 10,000 unit MWF@2100 SC 10/31/24 21:00 11/14/24 21:40 10,000 UNIT Sodium Chloride 10 ml QSHIFT@10,22 IV 10/31/24 22:00 11/16/24 09:19 10 ML Micafungin Sodium 100 mg/Sodium Chloride 100 ml @ 100 mls/hr DAILY IV 11/02/24 10:00 11/16/24 09:18 100 MLS/HR Acetaminophen/ Hydrocodone Bitart 1 tab Q4HPRN PRN PO 11/06/24 09:15 Enteral Nutritional Formula 1,000 ml 50ML/HR GT 11/06/24 09:30 Lactulose 30 ml DAILY JT 11/11/24 10:00 11/15/24 09:31 30 ML Amlodipine Besylate 10 mg DAILY GT 11/11/24 10:00 11/16/24 09:17 10 MG Labetalol HCl 10 mg Q2HPRN PRN IV 11/12/24 17:00 11/14/24 12:45 10 MG Hydralazine HCl 50 mg Q8HR GT 11/13/24 14:00 11/16/24 13:23 50 MG Labetalol HCl 300 mg Q12HR PO 11/13/24 10:00 11/16/24 09:17 300 MG Clonidine HCl 0.1 mg Q7D TD 11/13/24 07:00 11/13/24 08:35 0.1 MG Pantoprazole Sodium 40 mg BID IV 11/13/24 10:00 11/16/24 09:18 40 MG Metoclopramide HCl 5 mg Q8HR IV 11/13/24 14:00 11/16/24 13:23 5 MG Ertapenem 1 gm/ Sodium Chloride 50 ml @ 100 mls/hr DAILY IV 11/14/24 10:00 11/16/24 09:18 100 MLS/HR Lorazepam 1 mg Q4HP PRN IV 11/14/24 16:15 11/14/24 16:48 1 MG Dextrose 1,000 ml @ 75 mls/hr [id number] IV 11/15/24 12:15 11/16/24 02:00 75 MLS/HR Examination: HEENT:Abnormal, MSK:Abnormal, NEURO:Normal laboratory and microbiology Laboratory Tests 11/16/24 03:10 Test 11/16/24 03:10 Range/Units Serum Glucose 107 H 74-106 mg/dL Microbiology Date/Time Source Procedure Growth Status 11/14/24 08:27 Blood Blood Culture - Preliminary NO GROWTH AFTER 48 HOURS OF INCUBATION. Resulted 11/10/24 22:44 Voided Urine Urine Culture - Final Complete 10/18/24 09:21 Pleural Fluid Gram Stain - Final Complete 10/18/24 09:21 Pleural Fluid Body Fluid Culture - Final Complete 10/16/24 12:05 Bronchial Washings Gram Stain - Final Complete 10/16/24 12:05 Bronchial Washings Respiratory Culture - Final Complete 10/04/24 17:10 Nose MRSA Screen - Final Complete Problem List/Assessment/Plan Problem List/Assessment/Plan Acute kidney injury /ATN requiring acute inpatient hemodialysis--now off HD Acute respiratory failure -> now trach Perforated gastric ulcer status post exploratory laparoscopic surgery Hypokalemia Anemia due to chronic disease/inflammation tachycardia + Bcx fungemia hypernatremia recs d5w iv k replace Plan discussed with: Other Dietary Evaluation Review Comments: 1. Continue TPN to meet at least 75% estimated needs 2. Continue current POC Expected Outcomes/Goals: FU 2-3 days to meet adequate energy & protein within 7 days of NPO Protein Calorie Malnutrition: Severe (rn) CC Plasma Assessment Blood Product Administration S: [id number] DAYANARA BLACKWOOD MD Nov 16, 2024 15:46
--- NOTE | 2024-11-16 23:53 | DVHPN2 ---
Progress Note - Dictate Date Seen: Nov 16, 2024 Has the PT tested + for MRSA If YES, has PT been informed?: No Medical Necessity Reason Pt with a Central, PICC or Fol: Yes The following are medically ne: Central Line, Gómez Catheter Reason for gómez catheter: Strict I&O Subjective Patient seen and examined at bedside. On supplemental oxygen via trach. Overnight events reviewed. vital signs Vital Sign Date Time Temp Pulse Resp B/P (MAP) Pulse Ox O2 Delivery O2 Flow Rate FiO2 11/16/24 23:26 86 149/69 11/16/24 22:00 22 97 11/16/24 22:00 T-piece 11 16 2711/16/24 20:00 99.3 99.3 Total Intake and Output 11/15/24 11/15/24 11/16/24 15:00 23:00 07:00 Intake Total 375 ml 900 ml 1080 ml Output Total 590 ml 550 ml Balance 375 ml 310 ml 530 ml medications Current Medications Medications Dose Ordered Sig/Wally Route Start Time Stop Time Status Last Admin Dose Admin Ondansetron HCl 4 mg Q4HP PRN IV 10/04/24 11:45 Morphine Sulfate 2 mg Q4HPRN PRN IV 10/04/24 11:45 Cancel Nitroglycerin 0.4 mg Q5MINP PRN SL 10/04/24 11:45 Morphine Sulfate 2 mg Q30M PRN IV 10/04/24 11:45 Cancel Lorazepam 50 mg/ Sodium Chloride 50 ml @ 1 mls/hr Q24H IV 10/04/24 18:15 Cancel Amino Acids 0 ml @ 0 mls/hr PER PHARMACY IV 10/05/24 14:30 UNV Diagnostic Test (Pha) 1 strip Q6HR 10/05/24 18:00 11/16/24 23:35 1 STRIP Insulin Human Regular FOLLOW SLIDING SCALE Q6HR SC 10/05/24 18:00 11/03/24 17:23 2 UNITS Dextrose 50 ml UD IV 10/05/24 14:45 Meropenem 50 ml @ 17 mls/hr Q12HR IV 10/07/24 10:00 UNV Levalbuterol HCl 0.625 mg Q6HR NEB 10/13/24 12:00 11/16/24 18:09 0.625 MG Ipratropium [place] 0.5 mg Q6HR NEB 10/13/24 12:00 11/16/24 18:09 0.5 MG Morphine Sulfate 2 mg Q4HPRN PRN IV 10/21/24 11:30 11/10/24 05:15 2 MG Acetaminophen 650 mg Q6HP PRN GT 10/22/24 09:00 11/10/24 08:08 650 MG Sucralfate 1 gm BID@0600,2200 GT 10/28/24 22:00 11/16/24 22:24 1 GM Pantoprazole Sodium 50 ml @ 0 mls/hr Q0M IV 10/28/24 16:15 Cancel Midazolam HCl 1 mg Q2HP PRN IV 10/30/24 16:45 11/03/24 15:29 1 MG Epoetin Roger-epbx 10,000 unit MWF@2100 SC 10/31/24 21:00 11/14/24 21:40 10,000 UNIT Sodium Chloride 10 ml QSHIFT@, IV 10/31/24 22:00 11/16/24 22:23 10 ML Micafungin Sodium 100 mg/Sodium Chloride 100 ml @ 100 mls/hr DAILY IV 11/02/24 10:00 11/16/24 09:18 100 MLS/HR Acetaminophen/ Hydrocodone Bitart 1 tab Q4HPRN PRN PO 11/06/24 09:15 Enteral Nutritional Formula 1,000 ml 50ML/HR GT 11/06/24 09:30 Lactulose 30 ml DAILY JT 11/11/24 10:00 11/15/24 09:31 30 ML Amlodipine Besylate 10 mg DAILY GT 11/11/24 10:00 11/16/24 09:17 10 MG Labetalol HCl 10 mg Q2HPRN PRN IV 11/12/24 17:00 11/14/24 12:45 10 MG Hydralazine HCl 50 mg Q8HR GT 11/13/24 14:00 11/16/24 22:26 50 MG Labetalol HCl 300 mg Q12HR PO 11/13/24 10:00 11/16/24 22:26 300 MG Clonidine HCl 0.1 mg Q7D TD 11/13/24 07:00 11/13/24 08:35 0.1 MG Pantoprazole Sodium 40 mg BID IV 11/13/24 10:00 11/16/24 22:24 40 MG Metoclopramide HCl 5 mg Q8HR IV 11/13/24 14:00 11/16/24 22:24 5 MG Ertapenem 1 gm/ Sodium Chloride 50 ml @ 100 mls/hr DAILY IV 11/14/24 10:00 11/16/24 09:18 100 MLS/HR Lorazepam 1 mg Q4HP PRN IV 11/14/24 16:15 11/14/24 16:48 1 MG Dextrose 1,000 ml @ 75 mls/hr [id number] IV 11/15/24 12:15 11/16/24 20:33 75 MLS/HR objective Gen.: Patient lying in bed in no apparent distress. On supplemental oxygen via trach. Head: Normocephalic, atraumatic. Eyes: EOMI/PERRLA. Ears: Normal hearing. Normal anatomy. Neck/trachea: Trach in place. Nose: Normal external anatomy. Mouth: Moist mucous membranes. Chest: Decreased air entry bilaterally. No wheezing or rhonchi. Cardiovascular: Positive S1, positive S2. Regular rate and rhythm. Abdomen: Positive bowel sounds in all 4 quadrants. Soft, non-tender, non- distended. : Deferred. Rectal: Deferred. Skin: Warm, dry. Intact. Extremities: 2+ radial pulses bilaterally. No lower extremity edema. Neuro: Awake, alert, oriented x3. No gross motor or sensory deficits. Cranial nerves II through XII intact. Gait not assessed. laboratory and microbiology Laboratory Tests 11/16/24 03:10 Test 11/16/24 03:10 Range/Units Serum Glucose 107 H 74-106 mg/dL Assessment/Plan Impression: Acute hypoxic respiratory failure S/p tracheostomy Septic shock Perforated viscus s/p repair Nicotine dependence Events: S/p tracheostomy On O2 at 6 LPM - tolerating T-piece through 8.0 Shiley Repeat blood cultures showed no growth x48 hours Trach care per RT. IV fluids - D5W at 75 ml/hr. Continue bronchodilators Continue antifungal Continue antibiotics Head of bed elevation Aspiration precautions Monitor Hgb Protonix BID for GI ppx Sucralfate. GI recs appreciated. Clear liquids Monitor residuals Labs and imaging reviewed Plan: Vent support as needed Titrate to maintain sats 90% or above Trach collar Trach care per RT. Follow up with General Surgery Continue antibiotics and antifungals F/u cultures Bronchodilators Monitor renal function Monitor electrolytes Supplement as needed HD per nephrology Nutritional support Tube feedings DVT prophylaxis Prognosis: Guarded given patient's multiple co-morbidities. Rest of plan per hospitalist and other consultants. Thank you, SENIOR [employer] DEVELOPER Werner, for allowing me to participate in this patient's care. Further recommendations will depend on the patient's clinical course. Please do not hesitate to contact me if you have any questions or concerns. This medical document was created using an electronic medical record system with [employer] dictation system. Although these documentations are being carefully reviewed, there may still be some phonetic and typographical changes. The errors are purely typographical, due to imperfection on the software program, and do not reflect any compromise in the patient's medical care. Dietary Evaluation Review Comments: 1. Continue TPN to meet at least 75% estimated needs 2. Continue current POC Expected Outcomes/Goals: FU 2-3 days to meet adequate energy & protein within 7 days of NPO Protein Calorie Malnutrition: Severe (rn) Plan discussed with: Patient, Other (JASPER Ambrocio) CC Plasma Assessment Blood Product Administration S: [id number] ARIE LOPEZ MD Nov 16, 2024 23:53
[2024-11-17] VITALS (35 sets, daily range): BP systolic 126–192; BP diastolic 58–83; PULSE 70–92; RESP 16–31; TEMP 96.9–98.8; O2SAT 82–100
--- NOTE | 2024-11-17 00:24 | DVHPN2 ---
Progress Note - Dictate Date Seen: Nov 16, 2024 (Late entry Patient seen at food p.m. on ) Has the PT tested + for MRSA If YES, has PT been informed?: No Medical Necessity Reason Pt with a Central, PICC or Fol: No The following are medically ne: Central Line, Gómez Catheter Reason for gómez catheter: Strict I&O Subjective Patient is awake and alert able to tolerate clear liquids Nurse reports moderate amount of gastric residuals and therefore they are not advance in the diet No active GI bleeding is reported Cholecystostomy tube is draining bile vital signs Vital Sign Date Time Temp Pulse Resp B/P (MAP) Pulse Ox O2 Delivery O2 Flow Rate FiO2 11/17/24 00:03 92 20 97 11/16/24 23:26 149/69 11/16/24 22:00 T-piece 11 16 2711/16/24 20:00 99.3 99.3 Total Intake and Output 11/16/24 11/16/24 11/17/24 15:00 23:00 07:00 Intake Total 750 ml 900 ml Output Total 825 ml Balance 750 ml 75 ml medications Current Medications Medications Dose Ordered Sig/Wally Route Start Time Stop Time Status Last Admin Dose Admin Ondansetron HCl 4 mg Q4HP PRN IV 10/04/24 11:45 Morphine Sulfate 2 mg Q4HPRN PRN IV 10/04/24 11:45 Cancel Nitroglycerin 0.4 mg Q5MINP PRN SL 10/04/24 11:45 Morphine Sulfate 2 mg Q30M PRN IV 10/04/24 11:45 Cancel Lorazepam 50 mg/ Sodium Chloride 50 ml @ 1 mls/hr Q24H IV 10/04/24 18:15 Cancel Amino Acids 0 ml @ 0 mls/hr PER PHARMACY IV 10/05/24 14:30 UNV Diagnostic Test (Pha) 1 strip Q6HR 10/05/24 18:00 11/16/24 23:35 1 STRIP Insulin Human Regular FOLLOW SLIDING SCALE Q6HR SC 10/05/24 18:00 11/03/24 17:23 2 UNITS Dextrose 50 ml UD IV 10/05/24 14:45 Meropenem 50 ml @ 17 mls/hr Q12HR IV 10/07/24 10:00 UNV Levalbuterol HCl 0.625 mg Q6HR NEB 10/13/24 12:00 11/17/24 00:03 0.625 MG Ipratropium [place] 0.5 mg Q6HR NEB 10/13/24 12:00 11/17/24 00:03 0.5 MG Morphine Sulfate 2 mg Q4HPRN PRN IV 10/21/24 11:30 11/10/24 05:15 2 MG Acetaminophen 650 mg Q6HP PRN GT 10/22/24 09:00 11/10/24 08:08 650 MG Sucralfate 1 gm BID@0600,2200 GT 10/28/24 22:00 11/16/24 22:24 1 GM Pantoprazole Sodium 50 ml @ 0 mls/hr Q0M IV 10/28/24 16:15 Cancel Midazolam HCl 1 mg Q2HP PRN IV 10/30/24 16:45 11/03/24 15:29 1 MG Epoetin Roger-epbx 10,000 unit MWF@2100 SC 10/31/24 21:00 11/14/24 21:40 10,000 UNIT Sodium Chloride 10 ml QSHIFT@10,22 IV 10/31/24 22:00 11/16/24 22:23 10 ML Micafungin Sodium 100 mg/Sodium Chloride 100 ml @ 100 mls/hr DAILY IV 11/02/24 10:00 11/16/24 09:18 100 MLS/HR Acetaminophen/ Hydrocodone Bitart 1 tab Q4HPRN PRN PO 11/06/24 09:15 Enteral Nutritional Formula 1,000 ml 50ML/HR GT 11/06/24 09:30 Lactulose 30 ml DAILY JT 11/11/24 10:00 11/15/24 09:31 30 ML Amlodipine Besylate 10 mg DAILY GT 11/11/24 10:00 11/16/24 09:17 10 MG Labetalol HCl 10 mg Q2HPRN PRN IV 11/12/24 17:00 11/14/24 12:45 10 MG Hydralazine HCl 50 mg Q8HR GT 11/13/24 14:00 11/16/24 22:26 50 MG Labetalol HCl 300 mg Q12HR PO 11/13/24 10:00 11/16/24 22:26 300 MG Clonidine HCl 0.1 mg Q7D TD 11/13/24 07:00 11/13/24 08:35 0.1 MG Pantoprazole Sodium 40 mg BID IV 11/13/24 10:00 11/16/24 22:24 40 MG Metoclopramide HCl 5 mg Q8HR IV 11/13/24 14:00 11/16/24 22:24 5 MG Ertapenem 1 gm/ Sodium Chloride 50 ml @ 100 mls/hr DAILY IV 11/14/24 10:00 11/16/24 09:18 100 MLS/HR Lorazepam 1 mg Q4HP PRN IV 11/14/24 16:15 11/14/24 16:48 1 MG Dextrose 1,000 ml @ 75 mls/hr [id number] IV 11/15/24 12:15 11/16/24 20:33 75 MLS/HR objective General Appearance: Alert, awake on trach collar HEENT: Atraumatic, PERRLA;Mild pallor, NG tube tolerating enteral tube feedings Lungs: Decreased breath sounds at bases) Cardiovascular: Regular rate, Normal S1, Normal S2, Abdomen: soft nontender well-healed midline scar without any drainage, hypoactive bowel sounds Cholecystostomy tube draining bile laboratory and microbiology Laboratory Tests 11/16/24 03:10 Test 11/16/24 03:10 Range/Units Serum Glucose 107 H 74-106 mg/dL Problems(with codes): (1) Elevated liver enzymes (2) Cholecystitis (3) TIA (transient ischemic attack) (4) Altered mental status (5) Severe anemia (6) Perforated viscus (7) GI bleed (8) Septic shock Prognosis Plan The NG tube to low intermittent suction for to 3 hours None clamp the NG-tube and monitoring gastric residuals Continue clear liquid diet Continue IV Reglan Continue IV PPI Check repeat labs in a.m. Cut back on narcotics pain control and sedation Dietary Evaluation Review Comments: 1. Continue TPN to meet at least 75% estimated needs 2. Continue current POC Expected Outcomes/Goals: FU 2-3 days to meet adequate energy & protein within 7 days of NPO Protein Calorie Malnutrition: Severe (rn) Plan discussed with: Patient, Other (ICU Nurse) CC Plasma Assessment Blood Product Administration S: [id number] GURJIT NOBLE MD Nov 17, 2024 00:24
[2024-11-17 04:11] LABS: Hematocrit 26.2 % (41.0-53.0); Hemoglobin 8.6 g/dL (13.5-17.5); Mean Corpuscular Hemoglobin 28.2 pg (28.0-32.0); Mean Corpuscular Volume 86.0 fL (80.0-100.0); Nucleated Red Blood Cells % 0.1 %
[2024-11-17 04:16] LABS: Chloride 106 mmol/L (98-107); Potassium 3.7 mmol/L (3.5-5.1); Sodium 137 mmol/L (136-145)
[2024-11-17 04:17] LABS: Anion Gap 11 (5-15)
[2024-11-17 04:22] LABS: Glucose 98 mg/dL (74-106)
[2024-11-17 04:23] LABS: BUN/Creatinine Ratio 13.7 (10.0-20.0); Blood Urea Nitrogen 22 mg/dL (9-23)
[2024-11-17 04:37] LABS: Calcium 8.2 mg/dL (8.7-10.4); Carbon Dioxide 20 mmol/L (20-31)
[2024-11-17] MEDS: D5W 5% 1,000 ML IV SCH (10:00)
--- NOTE | 2024-11-17 10:06 | DVHPN2 ---
Subjective Patient is alert following commands. Denies any symptoms. Reviewed: Care Plan, H&P, Labs, Medications, Previous Orders, Radiology, Other (Consultants) Changes from previous H/P or p: No Changes General: Per HPI Objective Vitals Vital Signs Date Time Temp Pulse Resp B/P (MAP) Pulse Ox O2 Delivery O2 Flow Rate FiO2 11/17/24 09:13 83 153/79 11/17/24 08:00 21 97 T-piece 6 28 28 11/17/24 08:00 98.0 98.0 Intake/Output Intake and Output 11/17/24 07:00 Intake Total 2370 ml Output Total 1405 ml Balance 965 ml Intake Oral 420 ml IV Total 1950 ml Tube Feeding 0 ml Output Urine Total 950 ml Drainage Total 455 ml General Appearance: Alert, Oriented X3, Cooperative, mild distress, Other HEENT: Atraumatic, PERRLA Lungs: Clear to auscultation, Normal air movement, Other Cardiovascular: Normal S1, Normal S2, Other Abdomen: Other Extremities: Normal pulses Neuro: Other Skin: Dry, Intact, Wounds, Other Psych/Mental Status: Other Medications Current Medications Medications Dose Ordered Sig/Wally Route Start Time Stop Time Status Last Admin Dose Admin Ondansetron HCl 4 mg Q4HP PRN IV 10/04/24 11:45 Morphine Sulfate 2 mg Q4HPRN PRN IV 10/04/24 11:45 Cancel Nitroglycerin 0.4 mg Q5MINP PRN SL 10/04/24 11:45 Morphine Sulfate 2 mg Q30M PRN IV 10/04/24 11:45 Cancel Lorazepam 50 mg/ Sodium Chloride 50 ml @ 1 mls/hr Q24H IV 10/04/24 18:15 Cancel Amino Acids 0 ml @ 0 mls/hr PER PHARMACY IV 10/05/24 14:30 UNV Diagnostic Test (Pha) 1 strip Q6HR 10/05/24 18:00 11/17/24 05:34 1 STRIP Insulin Human Regular FOLLOW SLIDING SCALE Q6HR SC 10/05/24 18:00 11/03/24 17:23 2 UNITS Dextrose 50 ml UD IV 10/05/24 14:45 Meropenem 50 ml @ 17 mls/hr Q12HR IV 10/07/24 10:00 UNV Levalbuterol HCl 0.625 mg Q6HR NEB 10/13/24 12:00 11/17/24 06:27 0.625 MG Ipratropium [place] 0.5 mg Q6HR NEB 10/13/24 12:00 11/17/24 06:27 0.5 MG Morphine Sulfate 2 mg Q4HPRN PRN IV 10/21/24 11:30 11/10/24 05:15 2 MG Acetaminophen 650 mg Q6HP PRN GT 10/22/24 09:00 11/10/24 08:08 650 MG Sucralfate 1 gm BID@0600,2200 GT 10/28/24 22:00 11/17/24 05:33 1 GM Pantoprazole Sodium 50 ml @ 0 mls/hr Q0M IV 10/28/24 16:15 Cancel Midazolam HCl 1 mg Q2HP PRN IV 10/30/24 16:45 11/03/24 15:29 1 MG Epoetin Roger-epbx 10,000 unit MWF@2100 SC 10/31/24 21:00 11/14/24 21:40 10,000 UNIT Sodium Chloride 10 ml QSHIFT@10,22 IV 10/31/24 22:00 11/17/24 09:44 10 ML Micafungin Sodium 100 mg/Sodium Chloride 100 ml @ 100 mls/hr DAILY IV 11/02/24 10:00 11/17/24 09:17 100 MLS/HR Acetaminophen/ Hydrocodone Bitart 1 tab Q4HPRN PRN PO 11/06/24 09:15 Enteral Nutritional Formula 1,000 ml 50ML/HR GT 11/06/24 09:30 Lactulose 30 ml DAILY JT 11/11/24 10:00 11/17/24 09:12 30 ML Amlodipine Besylate 10 mg DAILY GT 11/11/24 10:00 11/17/24 09:12 10 MG Labetalol HCl 10 mg Q2HPRN PRN IV 11/12/24 17:00 11/17/24 02:36 10 MG Hydralazine HCl 50 mg Q8HR GT 11/13/24 14:00 11/16/24 22:26 50 MG Labetalol HCl 300 mg Q12HR PO 11/13/24 10:00 11/17/24 09:13 300 MG Clonidine HCl 0.1 mg Q7D TD 11/13/24 07:00 11/13/24 08:35 0.1 MG Pantoprazole Sodium 40 mg BID IV 11/13/24 10:00 11/17/24 09:13 40 MG Metoclopramide HCl 5 mg Q8HR IV 11/13/24 14:00 11/17/24 05:33 5 MG Ertapenem 1 gm/ Sodium Chloride 50 ml @ 100 mls/hr DAILY IV 11/14/24 10:00 11/17/24 09:14 100 MLS/HR Lorazepam 1 mg Q4HP PRN IV 11/14/24 16:15 11/14/24 16:48 1 MG Dextrose 1,000 ml @ 75 mls/hr [id number] IV 11/15/24 12:15 11/17/24 09:46 75 MLS/HR Laboratory Results Laboratory Tests 11/17/24 03:13 Chemistry Test 11/17/24 03:13 Calcium Level 8.2 mg/dL (8.7-10.4) L Urinalysis Test 10/05/24 15:05 10/26/24 20:33 11/07/24 12:40 Urine Mucus Few (None Seen) Urine Color Light-yellow (Yellow) Urine Clarity Clear (Clear) Urine pH 7.0 (5.0-9.0) Urine Specific [place] 1.014 (1.001-1.035) Urine Protein 1+ (Negative) H Urine Ketones Negative (Negative) Urine Blood 1+ /uL (Negative) H Urine Nitrite Negative (Negative) Urine Bilirubin Negative (Negative) Urine Urobilinogen Normal mg/dL (Negative) Urine Leukocyte Esterase Negative /uL (Negative) Urine RBC 1 /hpf (0 - 3) Urine Microscopic WBC 3 /HPF (0-3) Urine Squamous Epithelial Cells None seen /hpf (<5) Urine Bacteria Few /hpf (None Seen) H Urine Glucose Normal mg/dL (Normal) Urine Creatinine 64.63 mg/dL (30.0-125.0) Urine Protein/Creatinine Ratio 3.11 Urine Sodium 34 mmol/L (40-220) L Urine Total Protein 200.7 mg/dL (1-14) H Microbiology Microbiology Date/Time Source Procedure Growth Status 11/14/24 08:27 Blood Blood Culture - Preliminary NO GROWTH AFTER 72 HOURS OF INCUBATION. Resulted 11/10/24 22:44 Voided Urine Urine Culture - Final Complete 10/18/24 09:21 Pleural Fluid Gram Stain - Final Complete 10/18/24 09:21 Pleural Fluid Body Fluid Culture - Final Complete 10/16/24 12:05 Bronchial Washings Gram Stain - Final Complete 10/16/24 12:05 Bronchial Washings Respiratory Culture - Final Complete 10/04/24 17:10 Nose MRSA Screen - Final Complete Labs and/or images reviewed: Labs reviewed by me, Image(s) reviewed by me Assessment/Plan Assessment/Plan Impression: -severe septic shock -pneumoperitoneum secondary to perforated gastric ulcer -acute kidney injury, hemodynamically mediated, probable VMN -acute hypoxic respiratory failure -shock liver -nicotine dependence -history of CVA -right upper extremity DVT -multifocal pneumonia, probable Gram-positive/Gram-negative etiology -anemia secondary to nutrition, renal failure -bilateral pleural effusions -small left pneumothorax -Failure of ventilator weaning, status post tracheostomy -fungemia Plan: Events: White blood cell count normal. Blood culture negative for growth times 72 hours. Patient tolerating clear liquid diet. Continues to have high residuals from NG tube. -start tube feedings during the evening. Continue clear liquid diet -decrease IV fluids -increase antihypertensives -GI consultation: Discussed case. -antibiotic therapy: Invanz, micafungin -nephrology consultation: Daily assessment for hemodialysis -repeat labs, chest x-ray, ABG in a.m. Critical care time spent with patient discussing and formulating plan of care: 40 minutes. This does not include time spent performing procedures. This medical document was created using an electronic medical record system with [employer] dictation system. Although this document has been carefully reviewed, there may still be some phonetic and typographical errors. These areas are purely typographical due to imperfections of the software programs, and do not reflect any compromise in the patient's medical care. Plan discussed with: Patient, Other (RN) My Orders Orders - CHEYENNE PIKE NP Procedure Category Date Status Time D5w 5% PHA 11/17/24 Transmitted 10:00 Nutritional PHA 11/17/24 Transmitted Supplements (Nepro 22:00 Comprehensive LAB 11/18/24 Verified Metabolic Panel 04:00 Chest Xray 1 View XY 11/17/24 Logged 09:56 Date of Service: Nov 17, 2024 Billing Provider: CHEYENNE PIKE NP Common Visit Codes: [id number] INP/OBS CARE(HIGH) CHEYENNE PIKE NP Nov 17, 2024 10:06
--- NOTE | 2024-11-17 10:39 | DVH ---
CHEST RADIOGRAPH Indication: tracheostomy Technique: Single frontal view of the chest was obtained COMPARISON: XY CHEST PORTABLE on DOS: 11/13/24, XY CHEST XRAY 1 VIEW on DOS: 11/10/24, XY CHEST PORTABL E on DOS: 11/06/24, XY CHEST PORTABLE on DOS: 11/05/24, XY CHEST PORTABLE on DOS: 11/02/24 FINDINGS: Lines and Tubes: Tracheostomy in satisfactory position. Enteric catheter in satisfactory position. Lungs: Patchy bilateral airspace disease Pleura: No effusion. No pneumothorax. Cardiomediastinal contours: Unremarkable Bones: Unremarkable IMPRESSION: Lines and tubes in satisfactory position. No significant interval change.
--- NOTE | 2024-11-17 11:12 | DVHPN2 ---
Progress Note - Dictate Date Seen: Nov 17, 2024 Has the PT tested + for MRSA If YES, has PT been informed?: No Medical Necessity Reason Pt with a Central, PICC or Fol: Yes The following are medically ne: Central Line, Gómez Catheter Reason for gómez catheter: Strict I&O Subjective Mr. Perez is a 48 years old right-handed gentleman with a history of hypertension, dyslipidemia, multiple strokes, he was brought to the [facility] on 10/04/2024 with a chief company of recurrent syncope, in the hospital, the patient was found to have perforated viscus, and he went through surgical treatment, he was hospital course has been complicated with sepsis, septic shock, pneumonia, right upper extremity DVT. I saw him on 08/23/2023 for TIA I have seen and examined the patient, discussed with his nurse. Keeps improving, the bilateral shoulder is stronger. Good social skills No abdominal pain Afebrile Blood culture, Urinalysis, 08/22/2023: Unremarkable UDS, 08/22/2023: Negative WBC/Hb/PLT'/MCV, 08/22/2023: 10.8/13.1/184/87.4, 10/28/2024: 15/8/487/89.3 10/31/2024: 24.3/9.1/77/88.4 Troponin 1 high-sensitivity, 08/22/2023: 336, 273/300 BUNs/CR, 08/22/2023: 15/1.45 10/31/2024: Two 9/2.42 GFR, 08/22/2023: 59 Liver function test, 10/04/2024: Unremarkable TBI/AST/ALT/AP, 10/04/2024: 0.6/410/335/31, 10/05/2024: 1.3/582/423/39, 10/31/2024: 3.6/54/98/117 TG/CHO L/LDL/HDL, 08/2023: 136/166/111/39 TSH, 08/23/2023: 4.25 Extremity venous study, right arm, 11/09/2024: Thrombus is seen in the cephalic vein in the forearm. DONAL, 08/23/2023: 1. No evidence of intracardiac source of embolus in the study conducted today. 2. Normal valves without significant masses or change vegetations were discernible. 3. No evidence of intra-atrial shunting by bubble study and color Doppler. 4. Mild atherosclerotic plaquing was visualized in the arch of the aorta without evidence of dissection in the visualized part CT head, 10/24/2024: 1. No intracranial hemorrhage or mass effect. 2. [id number] chronic microvascular ischemic changes. 3. Old bilateral basal ganglia lacunar infarcts. 4. Small bilateral mastoid effusions. CT abdomen/pelvis, 10/04/2024: 1. Extensive intra-abdominal free air concerning for perforated viscus. Surgical consultation is recommended. 2. Enteritis is seen in multiple loops of small bowel in the left hemiabdomen. 3. Moderate abdominopelvic ascites. 4. Small right pleural effusion. CTA neck, head, 08/22/2023:1. CTA head demonstrates no evidence of large vessel occlusion, aneurysm, or significant stenosis. 2. CTA neck demonstrates no evidence of carotid or vertebral dissection or significant stenosis. 3. No noncontrast CT head was performed. 4. Additional findings as detailed above MRI head, 08/23/2023: No acute infarct, intracranial hemorrhage, mass effect, or hydrocephalus. Moderate periventricular and deep subcortical white matter T2 hyperintensities which are nonspecific, but most likely related to sequela of chronic microvascular ischemic changes (I have reviewed the MRI films with our in-house radiologist, Dr. Black, the patient has bilateral multiple subacute/chronic infarcts) MRI head, 11/01/2024: No acute cerebrovascular ischemia. Hopr-vp-dicicfvy chronic microvascular ischemic changes. Bilateral mastoid effusions. Old bilateral basal ganglia / lopes radiata infarcts. vital signs Vital Sign Date Time Temp Pulse Resp B/P (MAP) Pulse Ox O2 Delivery O2 Flow Rate FiO2 11/17/24 10:13 82 159/78 11/17/24 10:00 22 98 T-piece 6 28 28 11/17/24 08:00 98.0 98.0 Total Intake and Output 11/16/24 11/16/24 11/17/24 15:00 23:00 07:00 Intake Total 750 ml 900 ml 720 ml Output Total 825 ml 580 ml Balance 750 ml 75 ml 140 ml medications Current Medications Medications Dose Ordered Sig/Wally Route Start Time Stop Time Status Last Admin Dose Admin Ondansetron HCl 4 mg Q4HP PRN IV 10/04/24 11:45 Morphine Sulfate 2 mg Q4HPRN PRN IV 10/04/24 11:45 Cancel Nitroglycerin 0.4 mg Q5MINP PRN SL 10/04/24 11:45 Morphine Sulfate 2 mg Q30M PRN IV 10/04/24 11:45 Cancel Lorazepam 50 mg/ Sodium Chloride 50 ml @ 1 mls/hr Q24H IV 10/04/24 18:15 Cancel Amino Acids 0 ml @ 0 mls/hr PER PHARMACY IV 10/05/24 14:30 UNV Diagnostic Test (Pha) 1 strip Q6HR 10/05/24 18:00 11/17/24 05:34 1 STRIP Insulin Human Regular FOLLOW SLIDING SCALE Q6HR SC 10/05/24 18:00 11/03/24 17:23 2 UNITS Dextrose 50 ml UD IV 10/05/24 14:45 Meropenem 50 ml @ 17 mls/hr Q12HR IV 10/07/24 10:00 UNV Levalbuterol HCl 0.625 mg Q6HR NEB 10/13/24 12:00 11/17/24 06:27 0.625 MG Ipratropium [place] 0.5 mg Q6HR NEB 10/13/24 12:00 11/17/24 06:27 0.5 MG Morphine Sulfate 2 mg Q4HPRN PRN IV 10/21/24 11:30 11/10/24 05:15 2 MG Acetaminophen 650 mg Q6HP PRN GT 10/22/24 09:00 11/10/24 08:08 650 MG Sucralfate 1 gm BID@0600,2200 GT 10/28/24 22:00 11/17/24 05:33 1 GM Pantoprazole Sodium 50 ml @ 0 mls/hr Q0M IV 10/28/24 16:15 Cancel Epoetin Roger-epbx 10,000 unit MWF@2100 [place] 10/31/24 21:00 11/14/24 21:40 10,000 UNIT Sodium Chloride 10 ml QSHIFT@10,22 IV 10/31/24 22:00 11/17/24 09:44 10 ML Micafungin Sodium 100 mg/Sodium Chloride 100 ml @ 100 mls/hr DAILY IV 11/02/24 10:00 11/17/24 09:17 100 MLS/HR Acetaminophen/ Hydrocodone Bitart 1 tab Q4HPRN PRN PO 11/06/24 09:15 Lactulose 30 ml DAILY JT 11/11/24 10:00 11/17/24 09:12 30 ML Amlodipine Besylate 10 mg DAILY GT 11/11/24 10:00 11/17/24 09:12 10 MG Labetalol HCl 10 mg Q2HPRN PRN IV 11/12/24 17:00 11/17/24 02:36 10 MG Hydralazine HCl 50 mg Q8HR GT 11/13/24 14:00 11/16/24 22:26 50 MG Labetalol HCl 300 mg Q12HR PO 11/13/24 10:00 11/17/24 09:13 300 MG Clonidine HCl 0.1 mg Q7D TD 11/13/24 07:00 11/13/24 08:35 0.1 MG Pantoprazole Sodium 40 mg BID IV 11/13/24 10:00 11/17/24 09:13 40 MG Metoclopramide HCl 5 mg Q8HR IV 11/13/24 14:00 11/17/24 05:33 5 MG Ertapenem 1 gm/ Sodium Chloride 50 ml @ 100 mls/hr DAILY IV 11/14/24 10:00 11/17/24 09:14 100 MLS/HR Lorazepam 1 mg Q4HP PRN IV 11/14/24 16:15 11/14/24 16:48 1 MG Dextrose 1,000 ml @ 50 mls/hr Q20H IV 11/17/24 10:00 UNV Enteral Nutritional Formula 1,000 ml 50ML/HR GT 11/17/24 22:00 UNV objective General: the patient is well developed and nourished. No acute distress. MENTAL STATUS: Subjective SPEECH, LANGUAGE, HIGHER CORTICAL FUNCTION: He does not vocalize/status post tracheostomy. CRANIAL NERVES:Intact visual ansari to confrontation (visual thread). Pupils are equal, round and reactive. EOMs full and conjugate. Mandibular strength intact. Facial muscles symmetrical and strength intact. SENSATION: Sensation to touch and pinprick is unremarkable MOTOR: Normal muscle bulk. No fasciculations. No abnormal movements or posturing. Muscle power in the shoulders is 3/5, elbows and the hands 4-5/5. Moves the right le/5 REFLEXES: Deep tendon reflexes are increased bilaterally, clonus in both knees . No pathological reflexes. CEREBELLAR/COORDINATION: Deferred GAIT/STATION: deferred laboratory and microbiology Laboratory Tests 11/17/24 03:13 Test 11/17/24 03:13 Range/Units Serum Glucose 98 74-106 mg/dL Problem List Altered mental status Metabolic encephalopathy secondary to sepsis, septic shock, pneumonia Hypoxic encephalopathy Viscus perforation status post surgical repair GI bleeding Anemia Fever/ Sepsis/septic shock Respiratory failure S/P tracheostomy Multiple strokes Secondary to history methamphetamine, cocaine, alcohol use History of alcohol abuse History of cocaine, methamphetamine abuse Hyperreflexia secondary to multiple strokes Right upper extremity DVT Assessment/Plan Monitoring Supportive treatment ICU care Stabilize vitals Respiratory suppor Blood culture Follow-up labs IV antibiotics Protonix TPN Quit tobacco smoking No more alcohol, street drug abuse Stroke risk factors discussed GI on case Infectious disease on case Pulmonology on case Hematology on case Nephrology on case More recommended per clinical course This medical document was created using an electronic medical record system with [employer] dictation system. Although this document has been carefully reviewed, there may still be some phonetic and typographical errors. These areas are purely typographical due to imperfections of the software programs, and do not reflect any compromise in the patient's medical care. Prognosis poor Dietary Evaluation Review Comments: 1. Continue TPN to meet at least 75% estimated needs 2. Continue current POC Expected Outcomes/Goals: FU 2-3 days to meet adequate energy & protein within 7 days of NPO Protein Calorie Malnutrition: Severe (rn) Plan discussed with: Other CC Plasma Assessment Blood Product Administration S: [id number] LEANDRO BLACK MD Nov 17, 2024 11:12
--- NOTE | 2024-11-17 12:50 | DVHPN2 ---
Progress Note Date Seen: Nov 17, 2024 Has the PT tested + for MRSA If YES, has PT been informed?: No Medical Necessity Reason Pt with a Central, PICC or Fol: Yes The following are medically ne: Central Line, Gómez Catheter Reason for gómez catheter: Strict I&O Objective vital signs Vital Sign Date Time Temp Pulse Resp B/P (MAP) Pulse Ox O2 Delivery O2 Flow Rate FiO2 11/17/24 12:00 74 11/17/24 12:00 21 147/79 (101) 95 11/17/24 12:00 T-piece 11 15 28 11/17/24 08:00 98.0 98.0 Total Intake and Output 11/16/24 11/16/24 11/17/24 15:00 23:00 07:00 Intake Total 750 ml 900 ml 720 ml Output Total 825 ml 580 ml Balance 750 ml 75 ml 140 ml medications Current Medications Medications Dose Ordered Sig/Wally Route Start Time Stop Time Status Last Admin Dose Admin Ondansetron HCl 4 mg Q4HP PRN IV 10/04/24 11:45 Morphine Sulfate 2 mg Q4HPRN PRN IV 10/04/24 11:45 Cancel Nitroglycerin 0.4 mg Q5MINP PRN SL 10/04/24 11:45 Morphine Sulfate 2 mg Q30M PRN IV 10/04/24 11:45 Cancel Lorazepam 50 mg/ Sodium Chloride 50 ml @ 1 mls/hr Q24H IV 10/04/24 18:15 Cancel Amino Acids 0 ml @ 0 mls/hr PER PHARMACY IV 10/05/24 14:30 UNV Meropenem 50 ml @ 17 mls/hr Q12HR IV 10/07/24 10:00 UNV Levalbuterol HCl 0.625 mg Q6HR NEB 10/13/24 12:00 11/17/24 11:15 [address] [place] 0.5 mg Q6HR NEB 10/13/24 12:00 11/17/24 11:15 0.5 MG Morphine Sulfate 2 mg Q4HPRN PRN IV 10/21/24 11:30 11/10/24 05:15 2 MG Acetaminophen 650 mg Q6HP PRN GT 10/22/24 09:00 11/10/24 08:08 650 MG Sucralfate 1 gm BID@0600,2200 GT 10/28/24 22:00 11/17/24 05:33 1 GM Pantoprazole Sodium 50 ml @ 0 mls/hr Q0M IV 10/28/24 16:15 Cancel Epoetin Roger-epbx 10,000 unit MWF@2100 SC 10/31/24 21:00 11/14/24 21:40 10,000 UNIT Sodium Chloride 10 ml QSHIFT@10,22 IV 10/31/24 22:00 11/17/24 09:44 10 ML Micafungin Sodium 100 mg/Sodium Chloride 100 ml @ 100 mls/hr DAILY IV 11/02/24 10:00 11/17/24 09:17 100 MLS/HR Acetaminophen/ Hydrocodone Bitart 1 tab Q4HPRN PRN PO 11/06/24 09:15 Lactulose 30 ml DAILY JT 11/11/24 10:00 11/17/24 09:12 30 ML Amlodipine Besylate 10 mg DAILY GT 11/11/24 10:00 11/17/24 09:12 10 MG Labetalol HCl 10 mg Q2HPRN PRN IV 11/12/24 17:00 11/17/24 02:36 10 MG Hydralazine HCl 50 mg Q8HR GT 11/13/24 14:00 11/16/24 22:26 50 MG Labetalol HCl 300 mg Q12HR PO 11/13/24 10:00 11/17/24 09:13 300 MG Clonidine HCl 0.1 mg Q7D TD 11/13/24 07:00 11/13/24 08:35 0.1 MG Pantoprazole Sodium 40 mg BID IV 11/13/24 10:00 11/17/24 09:13 40 MG Metoclopramide HCl 5 mg Q8HR IV 11/13/24 14:00 11/17/24 05:33 5 MG Ertapenem 1 gm/ Sodium Chloride 50 ml @ 100 mls/hr DAILY IV 11/14/24 10:00 11/17/24 09:14 100 MLS/HR Lorazepam 1 mg Q4HP PRN IV 11/14/24 16:15 11/14/24 16:48 1 MG Dextrose 1,000 ml @ 50 mls/hr Q20H IV 11/17/24 10:00 Enteral Nutritional Formula 1,000 ml 50ML/HR GT 11/17/24 22:00 laboratory and microbiology Laboratory Tests 11/17/24 03:13 Test 11/17/24 03:13 Range/Units Serum Glucose 98 74-106 mg/dL Microbiology Date/Time Source Procedure Growth Status 11/14/24 08:27 Blood Blood Culture - Preliminary NO GROWTH AFTER 72 HOURS OF INCUBATION. Resulted 11/10/24 22:44 Voided Urine Urine Culture - Final Complete 10/18/24 09:21 Pleural Fluid Gram Stain - Final Complete 10/18/24 09:21 Pleural Fluid Body Fluid Culture - Final Complete 10/16/24 12:05 Bronchial Washings Gram Stain - Final Complete 10/16/24 12:05 Bronchial Washings Respiratory Culture - Final Complete 10/04/24 17:10 Nose MRSA Screen - Final Complete Problem List/Assessment/Plan Problem List/Assessment/Plan 48-year-old male presents to the hospital abdominal pain patient was diagnosed with acute gastric perforation status post surgery . Acute kidney injury hemodynamically mediated requiring acute inpatient hemodialysis Acute respiratory failure -> now trach to vent Perforated gastric ulcer status post exploratory laparoscopic surgery Anemia due to chronic disease/inflammation feeding and electrolyte replacement repeat iron panel Epogen 3x a week keep MAP > 65 Albumin for support Avoid hypotension Strict Is&Os Plan discussed with: Patient Dietary Evaluation Review Comments: 1. Continue TPN to meet at least 75% estimated needs 2. Continue current POC Expected Outcomes/Goals: FU 2-3 days to meet adequate energy & protein within 7 days of NPO Protein Calorie Malnutrition: Severe (rn) CC Plasma Assessment Blood Product Administration S: [id number] ISABELLE CASTELLANO MD Nov 17, 2024 12:50
[2024-11-17 14:09] LABS: Iron 31.0 ug/dL (65-175)
[2024-11-17 14:12] LABS: Total Iron Binding Capacity 190.0 ug/dL (250-425)
[2024-11-17] MEDS ORDERED: Nepro With Carb Steady 1 Liter Bottle GT SCH (22:00)
--- NOTE | 2024-11-17 23:56 | DVHPN2 ---
Progress Note - Dictate Date Seen: Nov 17, 2024 Has the PT tested + for MRSA If YES, has PT been informed?: No Medical Necessity Reason Pt with a Central, PICC or Fol: Yes The following are medically ne: Central Line, Gómez Catheter Reason for gómez catheter: Strict I&O Subjective Patient seen and examined at bedside. On supplemental oxygen via trach. Overnight events reviewed. vital signs Vital Sign Date Time Temp Pulse Resp B/P (MAP) Pulse Ox O2 Delivery O2 Flow Rate FiO2 11/17/24 23:43 84 149/68 11/17/24 19:30 22 97 11/17/24 18:00 T-piece 8 30 30 11/17/24 18:00 98.8 98.8 Total Intake and Output 11/16/24 11/16/24 11/17/24 15:00 23:00 07:00 Intake Total 750 ml 900 ml 720 ml Output Total 825 ml 580 ml Balance 750 ml 75 ml 140 ml medications Current Medications Medications Dose Ordered Sig/Wally Route Start Time Stop Time Status Last Admin Dose Admin Ondansetron HCl 4 mg Q4HP PRN IV 10/04/24 11:45 Morphine Sulfate 2 mg Q4HPRN PRN IV 10/04/24 11:45 Cancel Nitroglycerin 0.4 mg Q5MINP PRN SL 10/04/24 11:45 Morphine Sulfate 2 mg Q30M PRN IV 10/04/24 11:45 Cancel Lorazepam 50 mg/ Sodium Chloride 50 ml @ 1 mls/hr Q24H IV 10/04/24 18:15 Cancel Amino Acids 0 ml @ 0 mls/hr PER PHARMACY IV 10/05/24 14:30 UNV Meropenem 50 ml @ 17 mls/hr Q12HR IV 10/07/24 10:00 UNV Levalbuterol HCl 0.625 mg Q6HR NEB 10/13/24 12:00 11/17/24 18:12 0.625 MG Ipratropium [place] 0.5 mg Q6HR NEB 10/13/24 12:00 11/17/24 18:12 0.5 MG Morphine Sulfate 2 mg Q4HPRN PRN IV 10/21/24 11:30 11/10/24 05:15 2 MG Acetaminophen 650 mg Q6HP PRN GT 10/22/24 09:00 11/10/24 08:08 650 MG Sucralfate 1 gm BID@0600,2200 GT 10/28/24 22:00 11/17/24 23:44 1 GM Pantoprazole Sodium 50 ml @ 0 mls/hr Q0M IV 10/28/24 16:15 Cancel Epoetin Roger-epbx 10,000 unit MWF@2100 SC 10/31/24 21:00 11/17/24 23:44 10,000 UNIT Sodium Chloride 10 ml QSHIFT@10,22 IV 10/31/24 22:00 11/17/24 09:44 10 ML Micafungin Sodium 100 mg/Sodium Chloride 100 ml @ 100 mls/hr DAILY IV 11/02/24 10:00 11/17/24 09:17 100 MLS/HR Acetaminophen/ Hydrocodone Bitart 1 tab Q4HPRN PRN PO 11/06/24 09:15 Lactulose 30 ml DAILY JT 11/11/24 10:00 11/17/24 09:12 30 ML Amlodipine Besylate 10 mg DAILY GT 11/11/24 10:00 11/17/24 09:12 10 MG Labetalol HCl 10 mg Q2HPRN PRN IV 11/12/24 17:00 11/17/24 19:40 10 MG Hydralazine HCl 50 mg Q8HR GT 11/13/24 14:00 11/17/24 23:42 50 MG Labetalol HCl 300 mg Q12HR PO 11/13/24 10:00 11/17/24 23:43 300 MG Clonidine HCl 0.1 mg Q7D TD 11/13/24 07:00 11/13/24 08:35 0.1 MG Pantoprazole Sodium 40 mg BID IV 11/13/24 10:00 11/17/24 23:44 40 MG Metoclopramide HCl 5 mg Q8HR IV 11/13/24 14:00 11/17/24 23:44 5 MG Ertapenem 1 gm/ Sodium Chloride 50 ml @ 100 mls/hr DAILY IV 11/14/24 10:00 11/17/24 09:14 100 MLS/HR Lorazepam 1 mg Q4HP PRN IV 11/14/24 16:15 11/17/24 14:03 1 MG Dextrose 1,000 ml @ 50 mls/hr Q20H IV 11/17/24 10:00 Enteral Nutritional Formula 1,000 ml 50ML/HR GT 11/17/24 22:00 objective Gen.: Patient lying in bed in no apparent distress. On supplemental oxygen via trach. Head: Normocephalic, atraumatic. Eyes: EOMI/PERRLA. Ears: Normal hearing. Normal anatomy. Neck/trachea: Trach in place. Nose: Normal external anatomy. Mouth: Moist mucous membranes. Chest: Decreased air entry bilaterally. No wheezing or rhonchi. Cardiovascular: Positive S1, positive S2. Regular rate and rhythm. Abdomen: Positive bowel sounds in all 4 quadrants. Soft, non-tender, non- distended. : Deferred. Rectal: Deferred. Skin: Warm, dry. Intact. Extremities: 2+ radial pulses bilaterally. No lower extremity edema. Neuro: Awake, alert, oriented x3. No gross motor or sensory deficits. Cranial nerves II through XII intact. Gait not assessed. laboratory and microbiology Laboratory Tests 11/17/24 03:13 Test 11/17/24 03:13 Range/Units Serum Glucose 98 74-106 mg/dL Assessment/Plan Impression: Acute hypoxic respiratory failure S/p tracheostomy Septic shock Perforated viscus s/p repair Nicotine dependence Events: S/p tracheostomy On O2 at 6 LPM - tolerating T-piece through 8.0 Shiley OK for Passy Shellman valve. Repeat blood cultures showed no growth x72 hours Trach care per RT. IV fluids - D5W at 75 ml/hr. Continue bronchodilators Continue antifungal Continue antibiotics Head of bed elevation Aspiration precautions Monitor Hgb Protonix BID for GI ppx Sucralfate. GI recs appreciated. Clear liquids Monitor residuals Labs and imaging reviewed Plan: Vent support as needed Titrate to maintain sats 90% or above Trach collar Trach care per RT. Follow up with General Surgery Continue antibiotics and antifungals F/u cultures Bronchodilators Monitor renal function Monitor electrolytes Supplement as needed HD per nephrology Nutritional support Tube feedings DVT prophylaxis Prognosis: Guarded given patient's multiple co-morbidities. Rest of plan per hospitalist and other consultants. Thank you, NIDIA Caldera, for allowing me to participate in this patient's care. Further recommendations will depend on the patient's clinical course. Please do not hesitate to contact me if you have any questions or concerns. This medical document was created using an electronic medical record system with [employer] dictation system. Although these documentations are being carefully reviewed, there may still be some phonetic and typographical changes. The errors are purely typographical, due to imperfection on the software program, and do not reflect any compromise in the patient's medical care. Dietary Evaluation Review Comments: 1. Continue TPN to meet at least 75% estimated needs 2. Continue current POC Expected Outcomes/Goals: FU 2-3 days to meet adequate energy & protein within 7 days of NPO Protein Calorie Malnutrition: Severe (rn) Plan discussed with: Patient, Other (JASPER Lopes) CC Plasma Assessment Blood Product Administration S: [id number] ARIE LOPEZ MD Nov 17, 2024 23:56
[2024-11-18] VITALS (50 sets, daily range): BP systolic 83–178; BP diastolic 42–86; PULSE 57–115; RESP 20–32; TEMP 97.7–98.5; O2SAT 88–98
[2024-11-18 04:03] LABS: Hematocrit 28.0 % (41.0-53.0); Hemoglobin 9.0 g/dL (13.5-17.5); Mean Corpuscular Hemoglobin 27.8 pg (28.0-32.0); Mean Corpuscular Volume 86.3 fL (80.0-100.0); Nucleated Red Blood Cells % 0.1 %
[2024-11-18 04:20] LABS: Alanine Aminotransferase 39 U/L (7-40); Anion Gap 10 (5-15); BUN/Creatinine Ratio 12.7 (10.0-20.0); Bilirubin, Total 1.2 mg/dL (0.2-1.0); Blood Urea Nitrogen 20 mg/dL (9-23); Carbon Dioxide 21 mmol/L (20-31); Chloride 104 mmol/L (98-107); Glucose 90 mg/dL (74-106); Total Protein 7.7 g/dL (5.7-8.2)
[2024-11-18 04:35] LABS: Albumin 3.1 g/dL (3.2-4.8); Alkaline Phosphatase 186 U/L (46-116); Calcium 8.1 mg/dL (8.7-10.4); Potassium 3.4 mmol/L (3.5-5.1); Sodium 135 mmol/L (136-145)
[2024-11-18] MEDS: POTASSIUM CHL 20MEQ/100ML 100 ML IV ONE (05:53)
--- NOTE | 2024-11-18 09:07 | DVHPN2 ---
Subjective Patient is alert following commands. Denies any symptoms. Reviewed: Care Plan, H&P, Labs, Medications, Previous Orders, Radiology, Other (Consultants) Changes from previous H/P or p: No Changes General: Per HPI Objective Vitals Vital Signs Date Time Temp Pulse Resp B/P (MAP) Pulse Ox O2 Delivery O2 Flow Rate FiO2 11/18/24 08:00 87 28 92 T-piece 6 30 30 11/18/24 06:03 137/68 11/18/24 04:00 98.5 98.5 Intake/Output Intake and Output 11/18/24 07:00 Intake Total 1560 ml Output Total 1720 ml Balance -160 ml Intake Oral 260 ml IV Total 1300 ml Output Urine Total 1300 ml Drainage Total 420 ml # Bowel Movements 1 General Appearance: Alert, Oriented X3, Cooperative, mild distress, Other HEENT: Atraumatic, PERRLA Lungs: Clear to auscultation, Normal air movement, Other Cardiovascular: Normal S1, Normal S2, Other Abdomen: Other Extremities: Normal pulses Neuro: Cranial nerves 3-12 NL, Other Skin: Dry, Intact, Wounds, Other Psych/Mental Status: Other Medications Current Medications Medications Dose Ordered Sig/Wally Route Start Time Stop Time Status Last Admin Dose Admin Ondansetron HCl 4 mg Q4HP PRN IV 10/04/24 11:45 Morphine Sulfate 2 mg Q4HPRN PRN IV 10/04/24 11:45 Cancel Nitroglycerin 0.4 mg Q5MINP PRN SL 10/04/24 11:45 Morphine Sulfate 2 mg Q30M PRN IV 10/04/24 11:45 Cancel Lorazepam 50 mg/ Sodium Chloride 50 ml @ 1 mls/hr Q24H IV 10/04/24 18:15 Cancel Amino Acids 0 ml @ 0 mls/hr PER PHARMACY IV 10/05/24 14:30 UNV Meropenem 50 ml @ 17 mls/hr Q12HR IV 10/07/24 10:00 UNV Levalbuterol HCl 0.625 mg Q6HR NEB 10/13/24 12:00 11/18/24 06:24 0.625 MG Ipratropium [place] 0.5 mg Q6HR NEB 10/13/24 12:00 11/18/24 06:24 0.5 MG Morphine Sulfate 2 mg Q4HPRN PRN IV 10/21/24 11:30 11/10/24 05:15 2 MG Acetaminophen 650 mg Q6HP PRN GT 10/22/24 09:00 11/10/24 08:08 650 MG Sucralfate 1 gm BID@0600,2200 GT 10/28/24 22:00 11/18/24 06:03 1 GM Pantoprazole Sodium 50 ml @ 0 mls/hr Q0M IV 10/28/24 16:15 Cancel Epoetin Roger-epbx 10,000 unit MWF@2100 SC 10/31/24 21:00 11/14/24 21:40 10,000 UNIT Sodium Chloride 10 ml QSHIFT@10,22 IV 10/31/24 22:00 11/18/24 00:18 10 ML Micafungin Sodium 100 mg/Sodium Chloride 100 ml @ 100 mls/hr DAILY IV 11/02/24 10:00 11/17/24 09:17 100 MLS/HR Acetaminophen/ Hydrocodone Bitart 1 tab Q4HPRN PRN PO 11/06/24 09:15 Lactulose 30 ml DAILY JT 11/11/24 10:00 11/17/24 09:12 30 ML Amlodipine Besylate 10 mg DAILY GT 11/11/24 10:00 11/17/24 09:12 10 MG Labetalol HCl 10 mg Q2HPRN PRN IV 11/12/24 17:00 11/17/24 19:40 10 MG Hydralazine HCl 50 mg Q8HR GT 11/13/24 14:00 11/18/24 06:03 50 MG Labetalol HCl 300 mg Q12HR PO 11/13/24 10:00 11/17/24 23:43 300 MG Clonidine HCl 0.1 mg Q7D TD 11/13/24 07:00 11/13/24 08:35 0.1 MG Pantoprazole Sodium 40 mg BID IV 11/13/24 10:00 11/17/24 23:44 40 MG Metoclopramide HCl 5 mg Q8HR IV 11/13/24 14:00 11/18/24 06:03 5 MG Ertapenem 1 gm/ Sodium Chloride 50 ml @ 100 mls/hr DAILY IV 11/14/24 10:00 11/17/24 09:14 100 MLS/HR Lorazepam 1 mg Q4HP PRN IV 11/14/24 16:15 11/17/24 14:03 1 MG Dextrose 1,000 ml @ 50 mls/hr Q20H IV 11/17/24 10:00 Enteral Nutritional Formula 1,000 ml 50ML/HR GT 11/17/24 22:00 Laboratory Results Laboratory Tests 11/18/24 03:05 Chemistry Test 11/18/24 03:05 Albumin 3.1 g/dL (3.2-4.8) L Calcium Level 8.1 mg/dL (8.7-10.4) L Total Protein 7.7 g/dL (5.7-8.2) LFT Test 11/18/24 03:05 Alanine Aminotransferase (ALT) 39 U/L (7-40) Alkaline Phosphatase 186 U/L (46-116) H Aspartate Amino Transferase (AST) 31 U/L (13-40) Total Bilirubin 1.2 mg/dL (0.2-1.0) H Urinalysis Test 10/05/24 15:05 10/26/24 20:33 11/07/24 12:40 Urine Mucus Few (None Seen) Urine Color Light-yellow (Yellow) Urine Clarity Clear (Clear) Urine pH 7.0 (5.0-9.0) Urine Specific [place] 1.014 (1.001-1.035) Urine Protein 1+ (Negative) H Urine Ketones Negative (Negative) Urine Blood 1+ /uL (Negative) H Urine Nitrite Negative (Negative) Urine Bilirubin Negative (Negative) Urine Urobilinogen Normal mg/dL (Negative) Urine Leukocyte Esterase Negative /uL (Negative) Urine RBC 1 /hpf (0 - 3) Urine Microscopic WBC 3 /HPF (0-3) Urine Squamous Epithelial Cells None seen /hpf (<5) Urine Bacteria Few /hpf (None Seen) H Urine Glucose Normal mg/dL (Normal) Urine Creatinine 64.63 mg/dL (30.0-125.0) Urine Protein/Creatinine Ratio 3.11 Urine Sodium 34 mmol/L (40-220) L Urine Total Protein 200.7 mg/dL (1-14) H Microbiology Microbiology Date/Time Source Procedure Growth Status 11/14/24 08:27 Blood Blood Culture - Preliminary NO GROWTH AFTER 72 HOURS OF INCUBATION. Resulted 11/10/24 22:44 Voided Urine Urine Culture - Final Complete 10/18/24 09:21 Pleural Fluid Gram Stain - Final Complete 10/18/24 09:21 Pleural Fluid Body Fluid Culture - Final Complete 10/16/24 12:05 Bronchial Washings Gram Stain - Final Complete 10/16/24 12:05 Bronchial Washings Respiratory Culture - Final Complete 10/04/24 17:10 Nose MRSA Screen - Final Complete Labs and/or images reviewed: Labs reviewed by me, Image(s) reviewed by me Assessment/Plan Assessment/Plan Impression: -severe septic shock -pneumoperitoneum secondary to perforated gastric ulcer -acute kidney injury, hemodynamically mediated, probable VMN -acute hypoxic respiratory failure -shock liver -nicotine dependence -history of CVA -right upper extremity DVT -multifocal pneumonia, probable Gram-positive/Gram-negative etiology -anemia secondary to nutrition, renal failure -bilateral pleural effusions -small left pneumothorax -Failure of ventilator weaning, status post tracheostomy -fungemia Plan: Events: Increased residuals. Renal function improving. Speech therapy for assessment of placing Passy Sam valve. Gastroenterology to assess removing NG tube. -decrease IV fluids -continue current antihypertensives -GI consultation: Discussed case. -antibiotic therapy: Invanz, micafungin -nephrology consultation: Daily assessment for hemodialysis -repeat labs in am Critical care time spent with patient discussing and formulating plan of care: 40 minutes. This does not include time spent performing procedures. This medical document was created using an electronic medical record system with [employer] dictation system. Although this document has been carefully reviewed, there may still be some phonetic and typographical errors. These areas are purely typographical due to imperfections of the software programs, and do not reflect any compromise in the patient's medical care. Plan discussed with: Patient, Other (RN) My Orders Orders - CHEYENNE PIKE NP Procedure Category Date Status Time D5w 5% (Dextrose 5%) PHA 11/17/24 In Process 10:00 Nutritional PHA 11/17/24 In Process Supplements (Nepro 22:00 Chest Xray 1 View XY 11/17/24 Resulted 09:56 Nutritional PHA 11/18/24 Transmitted Supplements (Nepro 18:00 Comprehensive LAB 11/19/24 Verified Metabolic Panel 04:00 Date of Service: Nov 18, 2024 Billing Provider: CHEYENNE PIKE NP Common Visit Codes: [id number] CARE 30-74 MIN CHEYENNE PIKE FIELD SUPERINTENDENT Nov 18, 2024 09:07
--- NOTE | 2024-11-18 11:18 | DVH ---
CHEST RADIOGRAPH Indication: SOB Technique: Single frontal view of the chest was obtained Comparison: XY CHEST XRAY 1 VIEW on DOS: 11/17/24, XY CHEST PORTABLE on DOS: 11/13/24, XY CHEST XRAY 1 VIEW on DOS: 11/10/24, XY CHEST PORTABLE on DOS: 11/06/24, XY CHEST PORTABLE on DOS: 11/05/24, XY CHEST XRAY 1 VIEW on DOS: 11/17/24 FINDINGS: Lines and Tubes: Tracheostomy in satisfactory position. Enteric catheter in satisfactory position. Lungs: Patchy bilateral airspace disease Pleura: No effusion. No pneumothorax. Cardiomediastinal contours: Unremarkable Bones: Unremarkable IMPRESSION: 1. Lines and tubes in satisfactory position. No significant interval change.
[2024-11-18] MEDS: ACETYLCYSTEINE 10 %(100MG/ML) SOL 4ML ONE (11:32)
[2024-11-18] MEDS: ACETYLCYSTEINE 10 %(100MG/ML) SOL 4ML NEB SCH (11:35)
--- NOTE | 2024-11-18 11:49 | DVHPN2 ---
Progress Note Date Seen: Nov 18, 2024 Has the PT tested + for MRSA If YES, has PT been informed?: No Medical Necessity Reason Pt with a Central, PICC or Fol: Yes The following are medically ne: Central Line, Gómez Catheter Reason for gómez catheter: Strict I&O Subjective Patient reports: Feels better Objective vital signs Vital Sign Date Time Temp Pulse Resp B/P (MAP) Pulse Ox O2 Delivery O2 Flow Rate FiO2 11/18/24 11:33 69 28 92 11/18/24 10:30 144/72 (96) 11/18/24 10:00 T-piece 12 50 50 11/18/24 09:00 97.7 97.7 Total Intake and Output 11/17/24 11/17/24 11/18/24 15:00 23:00 07:00 Intake Total 600 ml 510 ml 500 ml Output Total 570 ml 1150 ml Balance 600 ml -60 ml -650 ml medications Current Medications Medications Dose Ordered Sig/Wally Route Start Time Stop Time Status Last Admin Dose Admin Ondansetron HCl 4 mg Q4HP PRN IV 10/04/24 11:45 Morphine Sulfate 2 mg Q4HPRN PRN IV 10/04/24 11:45 Cancel Nitroglycerin 0.4 mg Q5MINP PRN SL 10/04/24 11:45 Morphine Sulfate 2 mg Q30M PRN IV 10/04/24 11:45 Cancel Lorazepam 50 mg/ Sodium Chloride 50 ml @ 1 mls/hr Q24H IV 10/04/24 18:15 Cancel Amino Acids 0 ml @ 0 mls/hr PER PHARMACY IV 10/05/24 14:30 UNV Meropenem 50 ml @ 17 mls/hr Q12HR IV 10/07/24 10:00 UNV Levalbuterol HCl 0.625 mg Q6HR NEB 10/13/24 12:00 11/18/24 11:30 0.625 MG Ipratropium [place] 0.5 mg Q6HR NEB 10/13/24 12:00 11/18/24 11:30 0.5 MG Morphine Sulfate 2 mg Q4HPRN PRN IV 10/21/24 11:30 11/10/24 05:15 2 MG Acetaminophen 650 mg Q6HP PRN GT 10/22/24 09:00 11/10/24 08:08 650 MG Sucralfate 1 gm BID@0600,2200 GT 10/28/24 22:00 11/18/24 06:03 1 GM Pantoprazole Sodium 50 ml @ 0 mls/hr Q0M IV 10/28/24 16:15 Cancel Epoetin Roger-epbx 10,000 unit MWF@2100 SC 10/31/24 21:00 11/14/24 21:40 10,000 UNIT Sodium Chloride 10 ml QSHIFT@10,22 IV 10/31/24 22:00 11/18/24 09:13 10 ML Micafungin Sodium 100 mg/Sodium Chloride 100 ml @ 100 mls/hr DAILY IV 11/02/24 10:00 11/18/24 10:33 100 MLS/HR Acetaminophen/ Hydrocodone Bitart 1 tab Q4HPRN PRN PO 11/06/24 09:15 Lactulose 30 ml DAILY JT 11/11/24 10:00 11/18/24 09:19 30 ML Amlodipine Besylate 10 mg DAILY GT 11/11/24 10:00 11/18/24 09:33 10 MG Labetalol HCl 10 mg Q2HPRN PRN IV 11/12/24 17:00 11/17/24 19:40 10 MG Hydralazine HCl 50 mg Q8HR GT 11/13/24 14:00 11/18/24 06:03 50 MG Labetalol HCl 300 mg Q12HR PO 11/13/24 10:00 11/18/24 09:19 300 MG Clonidine HCl 0.1 mg Q7D TD 11/13/24 07:00 11/13/24 08:35 0.1 MG Pantoprazole Sodium 40 mg BID IV 11/13/24 10:00 11/18/24 09:12 40 MG Metoclopramide HCl 5 mg Q8HR IV 11/13/24 14:00 11/18/24 06:03 5 MG Ertapenem 1 gm/ Sodium Chloride 50 ml @ 100 mls/hr DAILY IV 11/14/24 10:00 11/18/24 09:12 100 MLS/HR Lorazepam 1 mg Q4HP PRN IV 11/14/24 16:15 11/17/24 14:03 1 MG Dextrose 1,000 ml @ 50 mls/hr Q20H IV 11/17/24 10:00 Enteral Nutritional Formula 240 ml BIDWM PO 11/18/24 18:00 Albuterol 2.5 mg Q3HPRN PRN NEB 11/18/24 10:30 UNV Acetylcysteine 100 mg Q6HR NEB 11/18/24 12:00 UNV Examination: GENERAL:Abnormal, ABDOMEN:Abnormal, SKIN:Normal laboratory and microbiology Laboratory Tests 11/18/24 03:05 Test 11/18/24 03:05 Range/Units Serum Glucose 90 74-106 mg/dL Microbiology Date/Time Source Procedure Growth Status 11/14/24 08:27 Blood Blood Culture - Preliminary NO GROWTH AFTER 72 HOURS OF INCUBATION. Resulted 11/10/24 22:44 Voided Urine Urine Culture - Final Complete 10/18/24 09:21 Pleural Fluid Gram Stain - Final Complete 10/18/24 09:21 Pleural Fluid Body Fluid Culture - Final Complete 10/16/24 12:05 Bronchial Washings Gram Stain - Final Complete 10/16/24 12:05 Bronchial Washings Respiratory Culture - Final Complete 10/04/24 17:10 Nose MRSA Screen - Final Complete Problem List/Assessment/Plan Problem List/Assessment/Plan 48-year-old male presents to the hospital abdominal pain patient was diagnosed with acute gastric perforation status post surgery . Acute kidney injury hemodynamically mediated requiring acute inpatient hemodialysis Acute respiratory failure -> now trach to vent Perforated gastric ulcer status post exploratory laparoscopic surgery Anemia due to chronic disease/inflammation feeding and electrolyte replacement repeat iron panel-> now depleted IV iron Epogen 3x a week keep MAP > 65 Albumin for support Avoid hypotension Strict Is&Os Plan discussed with: Patient Dietary Evaluation Review Comments: 1. Continue TPN to meet at least 75% estimated needs 2. Continue current POC Expected Outcomes/Goals: FU 2-3 days to meet adequate energy & protein within 7 days of NPO Protein Calorie Malnutrition: Severe (rn) Total Time (mins): 50 CC Plasma Assessment Blood Product Administration S: [id number] ISABELLE CASTELLANO MD Nov 18, 2024 11:49
[2024-11-18] MEDS: IRON SUCROSE COMPLEX 110 ML IV SCH (12:03)
--- NOTE | 2024-11-18 13:54 | DVHPN2 ---
Progress Note - Dictate Date Seen: Nov 18, 2024 Has the PT tested + for MRSA If YES, has PT been informed?: No Medical Necessity Reason Pt with a Central, PICC or Fol: Yes The following are medically ne: Central Line, Gómez Catheter Reason for gómez catheter: Strict I&O Subjective Patient is awake and alert able to tolerate clear liquids This morning the patient had some tachypnea and there was concern for possible aspiration Nurse reports moderate amount of gastric residuals a couple of days ago and therefore they are not advance in the diet No active GI bleeding is reported Cholecystostomy tube is draining bile vital signs Vital Sign Date Time Temp Pulse Resp B/P (MAP) Pulse Ox O2 Delivery O2 Flow Rate FiO2 11/18/24 13:35 104/53 11/18/24 13:30 63 25 89 11/18/24 12:00 T-piece 12 50 50 11/18/24 09:00 97.7 97.7 Total Intake and Output 11/17/24 11/17/24 11/18/24 15:00 23:00 07:00 Intake Total 600 ml 510 ml 500 ml Output Total 570 ml 1150 ml Balance 600 ml -60 ml -650 ml medications Current Medications Medications Dose Ordered Sig/Wally Route Start Time Stop Time Status Last Admin Dose Admin Ondansetron HCl 4 mg Q4HP PRN IV 10/04/24 11:45 Morphine Sulfate 2 mg Q4HPRN PRN IV 10/04/24 11:45 Cancel Nitroglycerin 0.4 mg Q5MINP PRN SL 10/04/24 11:45 Morphine Sulfate 2 mg Q30M PRN IV 10/04/24 11:45 Cancel Lorazepam 50 mg/ Sodium Chloride 50 ml @ 1 mls/hr Q24H IV 10/04/24 18:15 Cancel Amino Acids 0 ml @ 0 mls/hr PER PHARMACY IV 10/05/24 14:30 UNV Meropenem 50 ml @ 17 mls/hr Q12HR IV 10/07/24 10:00 UNV Levalbuterol HCl 0.625 mg Q6HR NEB 10/13/24 12:00 11/18/24 11:30 0.625 MG Ipratropium [place] 0.5 mg Q6HR NEB 10/13/24 12:00 11/18/24 11:30 0.5 MG Morphine Sulfate 2 mg Q4HPRN PRN IV 10/21/24 11:30 11/10/24 05:15 2 MG Acetaminophen 650 mg Q6HP PRN GT 10/22/24 09:00 11/10/24 08:08 650 MG Sucralfate 1 gm BID@0600,2200 GT 10/28/24 22:00 11/18/24 06:03 1 GM Pantoprazole Sodium 50 ml @ 0 mls/hr Q0M IV 10/28/24 16:15 Cancel Epoetin Roger-epbx 10,000 unit MWF@2100 SC 10/31/24 21:00 11/14/24 21:40 10,000 UNIT Sodium Chloride 10 ml QSHIFT@ IV 10/31/24 22:00 11/18/24 09:13 10 ML Micafungin Sodium 100 mg/Sodium Chloride 100 ml @ 100 mls/hr DAILY IV 11/02/24 10:00 11/18/24 10:33 100 MLS/HR Acetaminophen/ Hydrocodone Bitart 1 tab Q4HPRN PRN PO 11/06/24 09:15 Lactulose 30 ml DAILY JT 11/11/24 10:00 11/18/24 09:19 30 ML Amlodipine Besylate 10 mg DAILY GT 11/11/24 10:00 11/18/24 09:33 10 MG Labetalol HCl 10 mg Q2HPRN PRN IV 11/12/24 17:00 11/17/24 19:40 10 MG Hydralazine HCl 50 mg Q8HR GT 11/13/24 14:00 11/18/24 06:03 50 MG Labetalol HCl 300 mg Q12HR PO 11/13/24 10:00 11/18/24 09:19 300 MG Clonidine HCl 0.1 mg Q7D TD 11/13/24 07:00 11/13/24 08:35 0.1 MG Pantoprazole Sodium 40 mg BID IV 11/13/24 10:00 11/18/24 09:12 40 MG Metoclopramide HCl 5 mg Q8HR IV 11/13/24 14:00 11/18/24 06:03 5 MG Ertapenem 1 gm/ Sodium Chloride 50 ml @ 100 mls/hr DAILY IV 11/14/24 10:00 11/18/24 09:12 100 MLS/HR Lorazepam 1 mg Q4HP PRN IV 11/14/24 16:15 11/17/24 14:03 1 MG Dextrose 1,000 ml @ 50 mls/hr Q20H IV 11/17/24 10:00 11/18/24 13:32 50 MLS/HR Enteral Nutritional Formula 240 ml BIDWM PO 11/18/24 18:00 Albuterol 2.5 mg Q3HPRN PRN NEB 11/18/24 10:30 Acetylcysteine 100 mg Q6HR NEB 11/18/24 12:00 Iron Sucrose 110 ml @ 110 mls/hr DAILY@1200 IV 11/18/24 12:00 11/22/24 12:59 11/18/24 12:03 110 MLS/HR objective General Appearance: Alert, awake on trach collar HEENT: Atraumatic, PERRLA;Mild pallor, NG tube tolerating enteral tube feedings Lungs: Decreased breath sounds at bases) Cardiovascular: Regular rate, Normal S1, Normal S2, Abdomen: soft nontender well-healed midline scar without any drainage, hypoactive bowel sounds Cholecystostomy tube draining bile laboratory and microbiology Laboratory Tests 11/18/24 03:05 Test 11/18/24 03:05 Range/Units Serum Glucose 90 74-106 mg/dL Problems(with codes): (1) Elevated liver enzymes (2) Cholecystitis (3) TIA (transient ischemic attack) (4) Acute kidney injury (5) Perforated viscus (6) GI bleed Prognosis Plan Patient may have gastroparesis possibly related to recent surgical repair of a perforated gastric ulcer Keep head end elevated to 30 at all times and at 45 during feedings An attempt is being made for a possible Dobbhoff feeding tube Awaiting formal swallow evaluation DC NG tube Continue IV Reglan IV Protonix 40 mg q.12 hours Monitor labs I will be out of town for this week If any of the further GI input is required please request for GI doctor on-call Dietary Evaluation Review Comments: 1. Continue TPN to meet at least 75% estimated needs 2. Continue current POC Expected Outcomes/Goals: FU 2-3 days to meet adequate energy & protein within 7 days of NPO Protein Calorie Malnutrition: Severe (rn) Plan discussed with: Other (Junito Avina) CC Plasma Assessment Blood Product Administration S: [id number] GURJIT NOBLE MD Nov 18, 2024 13:54
--- NOTE | 2024-11-18 14:39 | DVH ---
CHEST RADIOGRAPH Indication: dobbhoff placement Technique: Single frontal view of the chest was obtained Comparison: XY CHEST XRAY 1 VIEW on DOS: 11/18/24, XY CHEST XRAY 1 VIEW on DOS: 11/17/24, XY CHEST PERLA BLE on DOS: 11/13/24, XY CHEST XRAY 1 VIEW on DOS: 11/10/24, XY CHEST PORTABLE on DOS: 11/06/24, XY CHES T XRAY 1 VIEW on DOS: 11/18/24 FINDINGS: Lines and Tubes: Tracheostomy in satisfactory position. Enteric catheter in satisfactory position. Do bbhoff feeding tube tip in the stomach. Lungs: Patchy bilateral airspace disease Pleura: No effusion. No pneumothorax. Cardiomediastinal contours: Unremarkable Bones: Unremarkable IMPRESSION: 1. Lines and tubes in satisfactory position. No significant interval change. 2. Dobbhoff feeding tube tip not included within the stomach.
[2024-11-18] MEDS: DOPamine 1600MCG/ML D5W 250 ML IV SCH (14:45)
[2024-11-18] MEDS: Nepro With Carbsteady ButterPecan 8oz Carton PO SCH (15:33)
[2024-11-18 15:54] LABS: Hematocrit 26.6 % (41.0-53.0); Hemoglobin 8.6 g/dL (13.5-17.5); Mean Corpuscular Hemoglobin 27.8 pg (28.0-32.0); Mean Corpuscular Volume 86.4 fL (80.0-100.0); Nucleated Red Blood Cells % 0.0 %
[2024-11-18 16:08] LABS: Alanine Aminotransferase 39 U/L (7-40); Anion Gap 10 (5-15); BUN/Creatinine Ratio 12.6 (10.0-20.0); Bilirubin, Total 0.9 mg/dL (0.2-1.0); Blood Urea Nitrogen 22 mg/dL (9-23); Carbon Dioxide 22 mmol/L (20-31); Chloride 99 mmol/L (98-107); Potassium 4.1 mmol/L (3.5-5.1); Total Protein 7.2 g/dL (5.7-8.2)
[2024-11-18 16:15] LABS: Albumin 2.9 g/dL (3.2-4.8); Alkaline Phosphatase 176 U/L (46-116); Calcium 7.8 mg/dL (8.7-10.4); Glucose 354 mg/dL (74-106); Sodium 131 mmol/L (136-145)
[2024-11-18 16:42] LABS: Base Excess -8.3 mmol/L (-2.0-3.0)
--- NOTE | 2024-11-18 23:55 | DVHPN2 ---
Progress Note - Dictate Date Seen: Nov 18, 2024 Has the PT tested + for MRSA If YES, has PT been informed?: No Medical Necessity Reason Pt with a Central, PICC or Fol: Yes The following are medically ne: Central Line, Gómez Catheter Reason for gómez catheter: Strict I&O Subjective Patient seen and examined at bedside. Currently on mechanical ventilator via trach. Overnight events reviewed. vital signs Vital Sign Date Time Temp Pulse Resp B/P (MAP) Pulse Ox O2 Delivery O2 Flow Rate FiO2 11/18/24 22:14 105 24 94/44 (61) 96 50 11/18/24 18:23 Mechanical Ventilator+ 11/18/24 16:30 97.7 97.7 11/18/24 14:00 12 Total Intake and Output 11/17/24 11/17/24 11/18/24 15:00 23:00 07:00 Intake Total 600 ml 510 ml 500 ml Output Total 570 ml 1150 ml Balance 600 ml -60 ml -650 ml medications Current Medications Medications Dose Ordered Sig/Wally Route Start Time Stop Time Status Last Admin Dose Admin Ondansetron HCl 4 mg Q4HP PRN IV 10/04/24 11:45 Morphine Sulfate 2 mg Q4HPRN PRN IV 10/04/24 11:45 Cancel Nitroglycerin 0.4 mg Q5MINP PRN SL 10/04/24 11:45 Morphine Sulfate 2 mg Q30M PRN IV 10/04/24 11:45 Cancel Lorazepam 50 mg/ Sodium Chloride 50 ml @ 1 mls/hr Q24H IV 10/04/24 18:15 Cancel Amino Acids 0 ml @ 0 mls/hr PER PHARMACY IV 10/05/24 14:30 UNV Meropenem 50 ml @ 17 mls/hr Q12HR IV 10/07/24 10:00 UNV Levalbuterol HCl 0.625 mg Q6HR NEB 10/13/24 12:00 11/18/24 18:23 0.625 MG Ipratropium [place] 0.5 mg Q6HR NEB 10/13/24 12:00 11/18/24 18:22 0.5 MG Morphine Sulfate 2 mg Q4HPRN PRN IV 10/21/24 11:30 11/10/24 05:15 2 MG Acetaminophen 650 mg Q6HP PRN GT 10/22/24 09:00 11/10/24 08:08 650 MG Sucralfate 1 gm BID@0600,2200 GT 10/28/24 22:00 11/18/24 06:03 1 GM Pantoprazole Sodium 50 ml @ 0 mls/hr Q0M IV 10/28/24 16:15 Cancel Epoetin Roger-epbx 10,000 unit MWF@2100 SC 10/31/24 21:00 11/14/24 21:40 10,000 UNIT Sodium Chloride 10 ml QSHIFT@10,22 IV 10/31/24 22:00 11/18/24 23:15 10 ML Micafungin Sodium 100 mg/Sodium Chloride 100 ml @ 100 mls/hr DAILY IV 11/02/24 10:00 11/18/24 10:33 100 MLS/HR Acetaminophen/ Hydrocodone Bitart 1 tab Q4HPRN PRN PO 11/06/24 09:15 Lactulose 30 ml DAILY JT 11/11/24 10:00 11/18/24 09:19 30 ML Amlodipine Besylate 10 mg DAILY GT 11/11/24 10:00 11/18/24 09:33 10 MG Labetalol HCl 10 mg Q2HPRN PRN IV 11/12/24 17:00 11/17/24 19:40 10 MG Hydralazine HCl 50 mg Q8HR GT 11/13/24 14:00 11/18/24 06:03 50 MG Clonidine HCl 0.1 mg Q7D TD 11/13/24 07:00 11/13/24 08:35 0.1 MG Pantoprazole Sodium 40 mg BID IV 11/13/24 10:00 11/18/24 23:14 40 MG Metoclopramide HCl 5 mg Q8HR IV 11/13/24 14:00 11/18/24 23:15 5 MG Ertapenem 1 gm/ Sodium Chloride 50 ml @ 100 mls/hr DAILY IV 11/14/24 10:00 11/18/24 09:12 100 MLS/HR Lorazepam 1 mg Q4HP PRN IV 11/14/24 16:15 11/18/24 20:05 1 MG Dextrose 1,000 ml @ 50 mls/hr Q20H IV 11/17/24 10:00 11/18/24 13:32 50 MLS/HR Enteral Nutritional Formula 240 ml BIDWM PO 11/18/24 18:00 Albuterol 2.5 mg Q3HPRN PRN NEB 11/18/24 10:30 Acetylcysteine 100 mg Q6HR NEB 11/18/24 12:00 11/18/24 18:23 100 MG Iron Sucrose 110 ml @ 110 mls/hr DAILY@1200 IV 11/18/24 12:00 11/22/24 12:59 11/18/24 12:03 110 MLS/HR Dopamine HCl/ Dextrose 250 ml @ 10.369 mls/ hr Q24H IV 11/18/24 14:45 Enoxaparin Sodium 30 mg DAILY SC 11/19/24 10:00 objective Gen.: Patient lying in bed in medical ICU. On mechanical ventilator via trach. Head: Normocephalic, atraumatic. Eyes: PERRLA. Ears: Normal external anatomy. Throat: Endotracheal tube and orogastric tube in place. Neck: Trach in place. Chest: Transmitted breath sounds bilaterally. Decreased air entry bilaterally. No wheezing. Bibasilar crackles. Cardiovascular: Positive S1, positive S2. Regular rate and rhythm. Abdomen: Positive bowel sounds in all 4 quadrants. Soft, nontender, nondistended. : Gómez in place. Normal external genitalia. Rectal: Deferred. Skin: Warm, dry. Intact. Extremities: 2+ radial pulses bilaterally. No lower extremity edema. Neuro: Awake, alert. laboratory and microbiology Laboratory Tests 11/18/24 15:20 Test 11/18/24 15:20 Range/Units Serum Glucose 354 #H 74-106 mg/dL Assessment/Plan Impression: Acute hypoxic respiratory failure On mechanical ventilator S/p tracheostomy Septic shock Perforated viscus s/p repair Nicotine dependence Events: S/p tracheostomy Patient was placed on vent for respiratory distress today Trached with 8.0 cuffed Shiley Trach collar/T-piece Passy Sam valve. Trach care per RT. IV fluids - D5W at 50 ml/hr. Continue bronchodilators Continue antifungal Complete course of antibiotics Repeat blood cultures showed no growth x72 hours Head of bed elevation Aspiration precautions Possible aspiration Chest x-ray reviewed; no foreign body noted. CT chest was ordered to confirm. Follow up results. Monitor Hgb Protonix BID for GI ppx GI recs appreciated. Clear liquids Monitor residuals Labs and imaging reviewed Plan: Vent support via trach Titrate to maintain sats above 92% Trach collar Trach care per RT. Follow up with General Surgery Continue antibiotics and antifungals F/u cultures Bronchodilators Complete abx course Monitor Hgb Protonix BID for GI ppx Monitor renal function Monitor electrolytes Supplement as needed HD per nephrology Nutritional support DVT prophylaxis Prognosis: Guarded given patient's multiple co-morbidities. Rest of plan per hospitalist and other consultants. Thank you, COLLET GLUER Werner, for allowing me to participate in this patient's care. Further recommendations will depend on the patient's clinical course. Please do not hesitate to contact me if you have any questions or concerns. This medical document was created using an electronic medical record system with [employer] dictation system. Although these documentations are being carefully reviewed, there may still be some phonetic and typographical changes. The errors are purely typographical, due to imperfection on the software program, and do not reflect any compromise in the patient's medical care. Dietary Evaluation Review Comments: 1. Continue TPN to meet at least 75% estimated needs 2. Continue current POC Expected Outcomes/Goals: FU 2-3 days to meet adequate energy & protein within 7 days of NPO Protein Calorie Malnutrition: Severe (rn) Plan discussed with: Patient, Other (JASPER Connelly) CC Plasma Assessment Blood Product Administration S: [id number] ARIE LOPEZ MD Nov 18, 2024 23:55
[2024-11-19] VITALS (57 sets, daily range): BP systolic 96–267; BP diastolic 44–226; PULSE 86–121; RESP 20–32; TEMP 97.8–99; O2SAT 83–100
[2024-11-19 04:29] LABS: Alanine Aminotransferase 35 U/L (7-40); Anion Gap 11 (5-15); BUN/Creatinine Ratio 11.5 (10.0-20.0); Blood Urea Nitrogen 21 mg/dL (9-23); Chloride 104 mmol/L (98-107); Glucose 93 mg/dL (74-106); Potassium 3.5 mmol/L (3.5-5.1); Total Protein 7.8 g/dL (5.7-8.2)
[2024-11-19 04:30] LABS: Bilirubin, Total 1.0 mg/dL (0.2-1.0)
--- NOTE | 2024-11-19 04:39 | DVH ---
EXAM: CT CHST AB PEL WO CON-NO IV/ORAL History: Worsening pna/ ileus Comparison Study: CT CT AB PEL WO CON-NO ORAL OR IV on DOS: 10/24/24 TECHNIQUE: Multidetector CT of the chest, abdomen and pelvis was performed from lower neck to pubic s ymphysis without the use of intravenous contrast. Coronal and sagittal multiplanar reformats were per formed by the technologist on a separate workstation. Radiation Dose Information: CT Dose: CTDI volume is 11.71 mGy. Dose-length product is 893.99 mGy*cm FINDINGS: Evaluation limited without intravenous contrast. Lower neck: Normal thyroid. Lungs: Bilateral lower lobe consolidation. Moderate centrilobular and paraseptal emphysema. Pleura: Small bilateral pleural effusions. Right-sided pleural thickening. No pneumothorax. Central airways: Tracheostomy tube is present. There are secretions surrounding the tube. Heart/Vascular Structures: Normal heart size. No pericardial effusion. Normal caliber thoracic aorta and main pulmonary artery. Lymph Nodes: No adenopathy. Liver: The liver is normal in size. Evaluation limited without intravenous contrast. Gallbladder and Biliary Tree: Percutaneous cholecystostomy tube noted. No biliary ductal dilatation. Spleen: Unremarkable. Pancreas: Unremarkable. Adrenal Glands: Unremarkable. Kidneys: No renal calculi or hydronephrosis. Bladder: Barrios catheter in the urinary bladder. There is air in the urinary bladder. Mild bladder w all thickening measuring up to 3 mm. Bowel: Enteric tube terminates in the stomach. No small or large bowel wall thickening or dilatation. Scattered stool throughout the colon. The appendix is not visualized; however, no secondary findings of acute appendicitis identified. Peritoneum: No ascites or pneumoperitoneum. Lymphadenopathy: No enlarged lymph nodes. Vasculature: The visualized abdominal aorta is normal in size and caliber. Evaluation of the vascular structures is limited due to lack of intravenous contrast. Pelvic Organs: Unremarkable. Musculoskeletal: No acute osseous abnormality. Soft tissues: Unremarkable. IMPRESSION: 1. Limited study without intravenous contrast. 2. Right lower lobe consolidation. Small right pleural effusion with pleural thickening. This could represent pneumonia with parapneumonic effusion. Trace left pleural effusion and left lower lobe cons olidation. 3. Tracheostomy tube present with secretions noted around the trachea. 4. No bowel obstruction or ileus. 5. Percutaneous cholecystostomy tube in situ. 6. Wall thickening in the urinary bladder may be due to underdistention. There is air in the urinary bladder which may be related to the presence of the Barrios catheter. Infection is not excluded. All CT scans at this medical facility are performed using dose modulation techniques as appropriate t o a performed exam including the following: Automated exposure control was utilized; adjustment of th e MA and/or KV according to patient size; and use of iterative reconstruction technique.
[2024-11-19 04:41] LABS: Albumin 3.1 g/dL (3.2-4.8); Alkaline Phosphatase 187 U/L (46-116); Calcium 8.5 mg/dL (8.7-10.4); Carbon Dioxide 20 mmol/L (20-31); Sodium 135 mmol/L (136-145)
[2024-11-19 05:34] LABS: Hematocrit 30.2 % (41.0-53.0); Hemoglobin 9.6 g/dL (13.5-17.5); Mean Corpuscular Hemoglobin 27.4 pg (28.0-32.0); Mean Corpuscular Volume 86.1 fL (80.0-100.0); Nucleated Red Blood Cells % 0.1 %
[2024-11-19 08:22] LABS: Base Excess -4.1 mmol/L (-2.0-3.0)
--- NOTE | 2024-11-19 09:16 | DVHPN2 ---
Subjective Patient is alert following commands. Denies any symptoms. Reviewed: Care Plan, H&P, Labs, Medications, Previous Orders, Radiology, Other (Consultants) Changes from previous H/P or p: No Changes General: Per HPI Objective Vitals Vital Signs Date Time Temp Pulse Resp B/P (MAP) Pulse Ox O2 Delivery O2 Flow Rate FiO2 11/19/24 08:24 111 26 122/68 (86) 98 50 11/19/24 06:00 Mechanical Ventilator+ 11/19/24 04:00 98.6 98.6 11/18/24 20:00 6 Intake/Output Intake and Output 11/19/24 07:00 Intake Total 1210 ml Output Total 1010 ml Balance 200 ml Intake Oral 50 ml IV Total 1160 ml Output Urine Total 750 ml Other 260 ml General Appearance: Alert, Oriented X3, Cooperative, mild distress, Other HEENT: Atraumatic, PERRLA Lungs: Clear to auscultation, Normal air movement, Other Cardiovascular: Normal S1, Normal S2, Other Abdomen: Other Extremities: Normal pulses Neuro: Cranial nerves 3-12 NL, Other Skin: Dry, Intact, Wounds, Other Psych/Mental Status: Other Medications Current Medications Medications Dose Ordered Sig/Wally Route Start Time Stop Time Status Last Admin Dose Admin Ondansetron HCl 4 mg Q4HP PRN IV 10/04/24 11:45 Morphine Sulfate 2 mg Q4HPRN PRN IV 10/04/24 11:45 Cancel Nitroglycerin 0.4 mg Q5MINP PRN SL 10/04/24 11:45 Morphine Sulfate 2 mg Q30M PRN IV 10/04/24 11:45 Cancel Lorazepam 50 mg/ Sodium Chloride 50 ml @ 1 mls/hr Q24H IV 10/04/24 18:15 Cancel Amino Acids 0 ml @ 0 mls/hr PER PHARMACY IV 10/05/24 14:30 UNV Meropenem 50 ml @ 17 mls/hr Q12HR IV 10/07/24 10:00 UNV Levalbuterol HCl 0.625 mg Q6HR NEB 10/13/24 12:00 11/19/24 06:24 0.625 MG Ipratropium [place] 0.5 mg Q6HR NEB 10/13/24 12:00 11/19/24 06:24 0.5 MG Morphine Sulfate 2 mg Q4HPRN PRN IV 10/21/24 11:30 11/10/24 05:15 2 MG Acetaminophen 650 mg Q6HP PRN GT 10/22/24 09:00 11/10/24 08:08 650 MG Sucralfate 1 gm BID@0600,2200 GT 10/28/24 22:00 11/19/24 05:31 1 GM Pantoprazole Sodium 50 ml @ 0 mls/hr Q0M IV 10/28/24 16:15 Cancel Epoetin Roger-epbx 10,000 unit MWF@2100 SC 10/31/24 21:00 11/14/24 21:40 10,000 UNIT Sodium Chloride 10 ml QSHIFT@ IV 10/31/24 22:00 11/18/24 23:15 10 ML Micafungin Sodium 100 mg/Sodium Chloride 100 ml @ 100 mls/hr DAILY IV 11/02/24 10:00 11/18/24 10:33 100 MLS/HR Acetaminophen/ Hydrocodone Bitart 1 tab Q4HPRN PRN PO 11/06/24 09:15 Lactulose 30 ml DAILY JT 11/11/24 10:00 11/18/24 09:19 30 ML Amlodipine Besylate 10 mg DAILY GT 11/11/24 10:00 11/18/24 09:33 10 MG Labetalol HCl 10 mg Q2HPRN PRN IV 11/12/24 17:00 11/17/24 19:40 10 MG Hydralazine HCl 50 mg Q8HR GT 11/13/24 14:00 11/18/24 06:03 50 MG Clonidine HCl 0.1 mg Q7D TD 11/13/24 07:00 11/13/24 08:35 0.1 MG Pantoprazole Sodium 40 mg BID IV 11/13/24 10:00 11/18/24 23:14 40 MG Metoclopramide HCl 5 mg Q8HR IV 11/13/24 14:00 11/19/24 05:31 5 MG Ertapenem 1 gm/ Sodium Chloride 50 ml @ 100 mls/hr DAILY IV 11/14/24 10:00 11/18/24 09:12 100 MLS/HR Lorazepam 1 mg Q4HP PRN IV 11/14/24 16:15 11/18/24 20:05 1 MG Dextrose 1,000 ml @ 50 mls/hr Q20H IV 11/17/24 10:00 11/18/24 13:32 50 MLS/HR Albuterol 2.5 mg Q3HPRN PRN NEB 11/18/24 10:30 Acetylcysteine 100 mg Q6HR NEB 11/18/24 12:00 11/19/24 06:24 100 MG Iron Sucrose 110 ml @ 110 mls/hr DAILY@1200 IV 11/18/24 12:00 11/22/24 12:59 11/18/24 12:03 110 MLS/HR Dopamine HCl/ Dextrose 250 ml @ 10.369 mls/ hr Q24H IV 11/18/24 14:45 Enoxaparin Sodium 30 mg DAILY SC 11/19/24 10:00 Metoprolol Tartrate 25 mg BID PO 11/19/24 10:00 Laboratory Results Laboratory Tests 11/19/24 03:14 Chemistry Test 11/18/24 15:20 11/19/24 03:14 Albumin 2.9 g/dL (3.2-4.8) L 3.1 g/dL (3.2-4.8) L Calcium Level 7.8 mg/dL (8.7-10.4) L 8.5 mg/dL (8.7-10.4) L Total Protein 7.2 g/dL (5.7-8.2) 7.8 g/dL (5.7-8.2) LFT Test 11/18/24 15:20 11/19/24 03:14 Alanine Aminotransferase (ALT) 39 U/L (7-40) 35 U/L (7-40) Alkaline Phosphatase 176 U/L (46-116) H 187 U/L (46-116) H Aspartate Amino Transferase (AST) 26 U/L (13-40) 29 U/L (13-40) Total Bilirubin 0.9 mg/dL (0.2-1.0) 1.0 mg/dL (0.2-1.0) Urinalysis Test 10/05/24 15:05 10/26/24 20:33 11/07/24 12:40 Urine Mucus Few (None Seen) Urine Color Light-yellow (Yellow) Urine Clarity Clear (Clear) Urine pH 7.0 (5.0-9.0) Urine Specific [place] 1.014 (1.001-1.035) Urine Protein 1+ (Negative) H Urine Ketones Negative (Negative) Urine Blood 1+ /uL (Negative) H Urine Nitrite Negative (Negative) Urine Bilirubin Negative (Negative) Urine Urobilinogen Normal mg/dL (Negative) Urine Leukocyte Esterase Negative /uL (Negative) Urine RBC 1 /hpf (0 - 3) Urine Microscopic WBC 3 /HPF (0-3) Urine Squamous Epithelial Cells None seen /hpf (<5) Urine Bacteria Few /hpf (None Seen) H Urine Glucose Normal mg/dL (Normal) Urine Creatinine 64.63 mg/dL (30.0-125.0) Urine Protein/Creatinine Ratio 3.11 Urine Sodium 34 mmol/L (40-220) L Urine Total Protein 200.7 mg/dL (1-14) H Blood Gas Results Test 11/18/24 14:39 11/19/24 08:07 Arterial Blood pH 7.287 (7.350-7.450) 7.424 (7.350-7.450) FiO2 % 70.0 50.0 Microbiology Microbiology Date/Time Source Procedure Growth Status 11/14/24 08:27 Blood Blood Culture - Final NO GROWTH AFTER 5 DAYS OF INCUBATION. Complete 11/10/24 22:44 Voided Urine Urine Culture - Final Complete 10/18/24 09:21 Pleural Fluid Gram Stain - Final Complete 10/18/24 09:21 Pleural Fluid Body Fluid Culture - Final Complete 10/16/24 12:05 Bronchial Washings Gram Stain - Final Complete 10/16/24 12:05 Bronchial Washings Respiratory Culture - Final Complete 10/04/24 17:10 Nose MRSA Screen - Final Complete Labs and/or images reviewed: Labs reviewed by me, Image(s) reviewed by me Assessment/Plan Assessment/Plan Impression: -severe septic shock -pneumoperitoneum secondary to perforated gastric ulcer -acute kidney injury, hemodynamically mediated, probable VMN -acute hypoxic respiratory failure -shock liver -nicotine dependence -history of CVA -right upper extremity DVT -multifocal pneumonia, probable Gram-positive/Gram-negative etiology -anemia secondary to nutrition, renal failure -bilateral pleural effusions -small left pneumothorax -Failure of ventilator weaning, status post tracheostomy -fungemia Plan: Events: CT scan of chest, abdomen, pelvis reviewed. Noted bilateral effusions. Patient back on mechanical ventilation with improvement clinical studies. Patient's subjectively states that his dyspnea has improved. We will continue to wean FiO2 warm peep. Plans placing patient back on tracheostomy collar once patient [place] to has appropriate placement. Plans to restart tube feedings as ordered. -continue current antihypertensives -GI consultation: Discussed case. -antibiotic therapy: Invanz, micafungin -nephrology consultation: Daily assessment for hemodialysis -repeat labs in am Critical care time spent with patient discussing and formulating plan of care: 40 minutes. This does not include time spent performing procedures. This medical document was created using an electronic medical record system with [employer] dictation system. Although this document has been carefully reviewed, there may still be some phonetic and typographical errors. These areas are purely typographical due to imperfections of the software programs, and do not reflect any compromise in the patient's medical care. Plan discussed with: Patient, Other (RN) My Orders Orders - CHEYENNE PIKE NP Procedure Category Date Status Time Chest Xray 1 View XY 11/18/24 Resulted 10:08 Albuterol Medneb PHA 11/18/24 In Process (Ventolin Medneb) 10:30 Acetylcysteine PHA 11/18/24 In Process Inhalation 10% 12:00 Insert Dobbhoff Tube ORDERS 11/18/24 Transmitted 11:34 Chest Xray 1 View XY 11/18/24 Resulted 12:43 Abg W/ Co-Ox RT 11/18/24 Logged 14:26 Abg W/ Co-Ox RT 11/18/24 Logged 14:36 Ventilator Orders RT 11/18/24 Transmitted 14:36 Dopamine 1600mcg/Ml PHA 11/18/24 In Process D5W 14:45 Chst Ab Pel Wo Con-No CT 11/18/24 Resulted Iv/Oral 14:27 Enoxaparin Sodium PHA 11/19/24 In Process (Lovenox) 10:00 Abg W/ Co-Ox RT 11/19/24 Logged 06:00 Kub Abdomen Single XY 11/19/24 Taken View 08:04 Metoprolol Tartrate PHA 11/19/24 In Process Tablet (Lopressor Ta 10:00 Basic Metabolic Panel LAB 11/20/24 Verified 05:00 Basic Metabolic Panel LAB 11/21/24 Verified 05:00 Basic Metabolic Panel LAB 11/22/24 Verified 05:00 Complete Blood Count LAB 11/20/24 Verified 05:00 Complete Blood Count LAB 11/21/24 Verified 05:00 Complete Blood Count LAB 11/22/24 Verified 05:00 Communication Order ORDERS 11/19/24 Verified 09:12 Communication Order ORDERS 11/19/24 Verified 09:12 Date of Service: Nov 19, 2024 Billing Provider: CHEYENNE PIKE NP Common Visit Codes: [id number] CARE 30-74 MIN CHEYENNE PIKE NP Nov 19, 2024 09:16
--- NOTE | 2024-11-19 09:45 | DVH ---
Date: 11/19/2024 08:30 AM Examination: XY KUB ABDOMEN SINGLE VIEW History: ASSESS PLACEMENT OF [place] tube Comparison: XY KUB ABDOMEN SINGLE VIEW on DOS: 10/31/24, XY KUB ABDOMEN SINGLE VIEW on DOS: 10/29/24, X Y KUB ABDOMEN SINGLE VIEW on DOS: 10/16/24, XY CHEST XRAY 1 VIEW on DOS: 11/18/24 TECHNIQUE: Single frontal view of the chest was obtained FINDINGS: Lines and Tubes: Tracheostomy in satisfactory position. Enteric catheter in satisfactory position. Do bbhoff feeding tube tip in the stomach. Lungs: Patchy bilateral airspace disease Pleura : No effusion. No pneumothorax. Cardiomediastinal contours: Unremarkable Bones: Unremarkable IMPRESSION: Lines and tubes in satisfactory position. No significant interval change. Dobbhoff tube in the stomach.
[2024-11-19] MEDS: ENOXAPARIN SOD 30 MG/0.3 ML SYRINGE SC SCH (10:10)
[2024-11-19] MEDS: METOPROLOL TARTRATE 25 MG TAB PO SCH (10:11)
--- NOTE | 2024-11-19 10:20 | DVHPN2 ---
Progress Note - Dictate Date Seen: Nov 19, 2024 Has the PT tested + for MRSA If YES, has PT been informed?: No Medical Necessity Reason Pt with a Central, PICC or Fol: Yes The following are medically ne: Central Line, Gómez Catheter Reason for gómez catheter: Strict I&O Subjective Mr. Perez is a 48 years old right-handed gentleman with a history of hypertension, dyslipidemia, multiple strokes, he was brought to the [facility] on 10/04/2024 with a chief company of recurrent syncope, in the hospital, the patient was found to have perforated viscus, and he went through surgical treatment, he was hospital course has been complicated with sepsis, septic shock, pneumonia, right upper extremity DVT. I saw him on 08/23/2023 for TIA I have seen and examined the patient, discussed with his nurse. Keeps improving, good social skills, the left shoulder looks weaker No abdominal pain Afebrile Blood culture, Urinalysis, 08/22/2023: Unremarkable UDS, 08/22/2023: Negative WBC/Hb/PLT'/MCV, 08/22/2023: 10.8/13.1/184/87.4, 10/28/2024: 15/8/487/89.3 10/31/2024: 24.3/9.1/77/88.4 Troponin 1 high-sensitivity, 08/22/2023: 336, 273/300 BUNs/CR, 08/22/2023: 15/1.45 10/31/2024: Two 9/2.42 GFR, 08/22/2023: 59 Liver function test, 10/04/2024: Unremarkable TBI/AST/ALT/AP, 10/04/2024: 0.6/410/335/31, 10/05/2024: 1.3/582/423/39, 10/31/2024: 3.6/54/98/117 TG/CHO L/LDL/HDL, 08/2023: 136/166/111/39 TSH, 08/23/2023: 4.25 Extremity venous study, right arm, 11/09/2024: Thrombus is seen in the cephalic vein in the forearm. DONAL, 08/23/2023: 1. No evidence of intracardiac source of embolus in the study conducted today. 2. Normal valves without significant masses or change vegetations were discernible. 3. No evidence of intra-atrial shunting by bubble study and color Doppler. 4. Mild atherosclerotic plaquing was visualized in the arch of the aorta without evidence of dissection in the visualized part CT head, 10/24/2024: 1. No intracranial hemorrhage or mass effect. 2. Rqpz-jy-cqyknsur chronic microvascular ischemic changes. 3. Old bilateral basal ganglia lacunar infarcts. 4. Small bilateral mastoid effusions. CT abdomen/pelvis, 10/04/2024: 1. Extensive intra-abdominal free air concerning for perforated viscus. Surgical consultation is recommended. 2. Enteritis is seen in multiple loops of small bowel in the left hemiabdomen. 3. Moderate abdominopelvic ascites. 4. Small right pleural effusion. CTA neck, head, 08/22/2023:1. CTA head demonstrates no evidence of large vessel occlusion, aneurysm, or significant stenosis. 2. CTA neck demonstrates no evidence of carotid or vertebral dissection or significant stenosis. 3. No noncontrast CT head was performed. 4. Additional findings as detailed above MRI head, 08/23/2023: No acute infarct, intracranial hemorrhage, mass effect, or hydrocephalus. Moderate periventricular and deep subcortical white matter T2 hyperintensities which are nonspecific, but most likely related to sequela of chronic microvascular ischemic changes (I have reviewed the MRI films with our in-house radiologist, Dr. Black, the patient has bilateral multiple subacute/chronic infarcts) MRI head, 11/01/2024: No acute cerebrovascular ischemia. Tkyb-qm-lhffighk chronic microvascular ischemic changes. Bilateral mastoid effusions. Old bilateral basal ganglia / lopes radiata infarcts. vital signs Vital Sign Date Time Temp Pulse Resp B/P (MAP) Pulse Ox O2 Delivery O2 Flow Rate FiO2 11/19/24 09:05 30 11/19/24 08:24 111 26 122/68 (86) 98 11/19/24 06:00 Mechanical Ventilator+ 11/19/24 04:00 98.6 98.6 11/18/24 20:00 6 Total Intake and Output 11/18/24 11/18/24 11/19/24 15:00 23:00 07:00 Intake Total 410 ml 450 ml 350 ml Output Total 700 ml 310 ml Balance 410 ml -250 ml 40 ml medications Current Medications Medications Dose Ordered Sig/Wally Route Start Time Stop Time Status Last Admin Dose Admin Ondansetron HCl 4 mg Q4HP PRN IV 10/04/24 11:45 Morphine Sulfate 2 mg Q4HPRN PRN IV 10/04/24 11:45 Cancel Nitroglycerin 0.4 mg Q5MINP PRN SL 10/04/24 11:45 Morphine Sulfate 2 mg Q30M PRN IV 10/04/24 11:45 Cancel Lorazepam 50 mg/ Sodium Chloride 50 ml @ 1 mls/hr Q24H IV 10/04/24 18:15 Cancel Amino Acids 0 ml @ 0 mls/hr PER PHARMACY IV 10/05/24 14:30 UNV Meropenem 50 ml @ 17 mls/hr Q12HR IV 10/07/24 10:00 UNV Levalbuterol HCl 0.625 mg Q6HR NEB 10/13/24 12:00 11/19/24 06:24 0.625 MG Ipratropium [place] 0.5 mg Q6HR NEB 10/13/24 12:00 11/19/24 06:24 0.5 MG Morphine Sulfate 2 mg Q4HPRN PRN IV 10/21/24 11:30 11/10/24 05:15 2 MG Acetaminophen 650 mg Q6HP PRN GT 10/22/24 09:00 11/10/24 08:08 650 MG Sucralfate 1 gm BID@0600,2200 GT 10/28/24 22:00 11/19/24 05:31 1 GM Pantoprazole Sodium 50 ml @ 0 mls/hr Q0M IV 10/28/24 16:15 Cancel Epoetin Roger-epbx 10,000 unit MWF@2100 SC 10/31/24 21:00 11/14/24 21:40 10,000 UNIT Sodium Chloride 10 ml QSHIFT@10,22 IV 10/31/24 22:00 11/18/24 23:15 10 ML Micafungin Sodium 100 mg/Sodium Chloride 100 ml @ 100 mls/hr DAILY IV 11/02/24 10:00 11/18/24 10:33 100 MLS/HR Acetaminophen/ Hydrocodone Bitart 1 tab Q4HPRN PRN PO 11/06/24 09:15 Lactulose 30 ml DAILY JT 11/11/24 10:00 7/1/25 09:19 30 ML Amlodipine Besylate 10 mg DAILY GT 11/11/24 10:00 11/18/24 09:33 10 MG Labetalol HCl 10 mg Q2HPRN PRN IV 11/12/24 17:00 11/17/24 19:40 10 MG Hydralazine HCl 50 mg Q8HR GT 11/13/24 14:00 11/18/24 06:03 50 MG Clonidine HCl 0.1 mg Q7D TD 11/13/24 07:00 11/13/24 08:35 0.1 MG Pantoprazole Sodium 40 mg BID IV 11/13/24 10:00 11/18/24 23:14 40 MG Metoclopramide HCl 5 mg Q8HR IV 11/13/24 14:00 11/19/24 05:31 5 MG Ertapenem 1 gm/ Sodium Chloride 50 ml @ 100 mls/hr DAILY IV 11/14/24 10:00 11/18/24 09:12 100 MLS/HR Lorazepam 1 mg Q4HP PRN IV 11/14/24 16:15 11/18/24 20:05 1 MG Dextrose 1,000 ml @ 50 mls/hr Q20H IV 11/17/24 10:00 11/18/24 13:32 50 MLS/HR Albuterol 2.5 mg Q3HPRN PRN NEB 11/18/24 10:30 Acetylcysteine 100 mg Q6HR NEB 11/18/24 12:00 11/19/24 06:24 100 MG Iron Sucrose 110 ml @ 110 mls/hr DAILY@1200 IV 11/18/24 12:00 11/22/24 12:59 11/18/24 12:03 110 MLS/HR Dopamine HCl/ Dextrose 250 ml @ 10.369 mls/ hr Q24H IV 11/18/24 14:45 Enoxaparin Sodium 30 mg DAILY SC 11/19/24 10:00 Metoprolol Tartrate 25 mg BID PO 11/19/24 10:00 objective General: the patient is well developed and nourished. No acute distress. MENTAL STATUS: Subjective SPEECH, LANGUAGE, HIGHER CORTICAL FUNCTION: He does not vocalize/status post tracheostomy. CRANIAL NERVES:Intact visual ansari to confrontation (visual thread). Pupils are equal, round and reactive. EOMs full and conjugate. Mandibular strength intact. Facial muscles symmetrical and strength intact. SENSATION: Sensation to touch and pinprick is unremarkable MOTOR: Normal muscle bulk. No fasciculations. No abnormal movements or posturing. Muscle power in the shoulders is 3/5 with left-sided weaker, elbows and the hands 4-5/5. Moves the right le/5 REFLEXES: Deep tendon reflexes are increased bilaterally, clonus in both knees . No pathological reflexes. CEREBELLAR/COORDINATION: Deferred GAIT/STATION: deferred laboratory and microbiology Laboratory Tests 11/19/24 03:14 Test 11/19/24 03:14 Range/Units Serum Glucose 93 # 74-106 mg/dL Problem List Altered mental status Metabolic encephalopathy secondary to sepsis, septic shock, pneumonia Hypoxic encephalopathy Viscus perforation status post surgical repair GI bleeding Anemia Fever/ Sepsis/septic shock Respiratory failure S/P tracheostomy Multiple strokes Secondary to history methamphetamine, cocaine, alcohol use History of alcohol abuse History of cocaine, methamphetamine abuse Hyperreflexia secondary to multiple strokes Right upper extremity DVT ICU myopathy Assessment/Plan Monitoring Supportive treatment ICU care Stabilize vitals Respiratory suppor Blood culture Follow-up labs IV antibiotics Protonix TPN Quit tobacco smoking No more alcohol, street drug abuse Stroke risk factors discussed GI on case Infectious disease on case Pulmonology on case Hematology on case Nephrology on case More recommended per clinical course This medical document was created using an electronic medical record system with [employer] dictation system. Although this document has been carefully reviewed, there may still be some phonetic and typographical errors. These areas are purely typographical due to imperfections of the software programs, and do not reflect any compromise in the patient's medical care. Prognosis poor Dietary Evaluation Review Comments: 1. Continue TPN to meet at least 75% estimated needs 2. Continue current POC Expected Outcomes/Goals: FU 2-3 days to meet adequate energy & protein within 7 days of NPO Protein Calorie Malnutrition: Severe (rn) Plan discussed with: Other CC Plasma Assessment Blood Product Administration S: [id number] LEANDRO BLACK MD Nov 19, 2024 10:20
--- NOTE | 2024-11-19 14:01 | DVHPN2 ---
Progress Note Date Seen: Nov 19, 2024 Has the PT tested + for MRSA If YES, has PT been informed?: No Medical Necessity Reason Pt with a Central, PICC or Fol: Yes The following are medically ne: Central Line, Gómez Catheter Reason for gómez catheter: Strict I&O Subjective Review of Systems: RESPIRATORY:Abnormal Objective vital signs Vital Sign Date Time Temp Pulse Resp B/P (MAP) Pulse Ox O2 Delivery O2 Flow Rate FiO2 11/19/24 12:10 92 24 139/65 (89) 95 30 11/19/24 12:00 Mechanical Ventilator+ 11/19/24 09:00 97.8 97.8 11/18/24 20:00 6 Total Intake and Output 11/18/24 11/18/24 11/19/24 15:00 23:00 07:00 Intake Total 410 ml 450 ml 350 ml Output Total 700 ml 310 ml Balance 410 ml -250 ml 40 ml medications Current Medications Medications Dose Ordered Sig/Wally Route Start Time Stop Time Status Last Admin Dose Admin Ondansetron HCl 4 mg Q4HP PRN IV 10/04/24 11:45 Morphine Sulfate 2 mg Q4HPRN PRN IV 10/04/24 11:45 Cancel Nitroglycerin 0.4 mg Q5MINP PRN SL 10/04/24 11:45 Morphine Sulfate 2 mg Q30M PRN IV 10/04/24 11:45 Cancel Lorazepam 50 mg/ Sodium Chloride 50 ml @ 1 mls/hr Q24H IV 10/04/24 18:15 Cancel Amino Acids 0 ml @ 0 mls/hr PER PHARMACY IV 10/05/24 14:30 UNV Meropenem 50 ml @ 17 mls/hr Q12HR IV 10/07/24 10:00 UNV Levalbuterol HCl 0.625 mg Q6HR NEB 10/13/24 12:00 11/19/24 12:10 0.625 MG Ipratropium [place] 0.5 mg Q6HR NEB 10/13/24 12:00 11/19/24 12:10 0.5 MG Morphine Sulfate 2 mg Q4HPRN PRN IV 10/21/24 11:30 11/10/24 05:15 2 MG Acetaminophen 650 mg Q6HP PRN GT 10/22/24 09:00 11/10/24 08:08 650 MG Sucralfate 1 gm BID@0600,2200 GT 10/28/24 22:00 11/19/24 05:31 1 GM Pantoprazole Sodium 50 ml @ 0 mls/hr Q0M IV 10/28/24 16:15 Cancel Epoetin Roger-epbx 10,000 unit MWF@2100 SC 10/31/24 21:00 11/14/24 21:40 10,000 UNIT Sodium Chloride 10 ml QSHIFT@10,22 IV 10/31/24 22:00 11/19/24 10:12 10 ML Micafungin Sodium 100 mg/Sodium Chloride 100 ml @ 100 mls/hr DAILY IV 11/02/24 10:00 11/19/24 11:42 100 MLS/HR Acetaminophen/ Hydrocodone Bitart 1 tab Q4HPRN PRN PO 11/06/24 09:15 Lactulose 30 ml DAILY JT 11/11/24 10:00 11/19/24 10:10 30 ML Amlodipine Besylate 10 mg DAILY GT 11/11/24 10:00 11/19/24 10:11 10 MG Labetalol HCl 10 mg Q2HPRN PRN IV 11/12/24 17:00 11/17/24 19:40 10 MG Hydralazine HCl 50 mg Q8HR GT 11/13/24 14:00 11/18/24 06:03 50 MG Clonidine HCl 0.1 mg Q7D TD 11/13/24 07:00 11/13/24 08:35 0.1 MG Pantoprazole Sodium 40 mg BID IV 11/13/24 10:00 11/19/24 10:10 40 MG Metoclopramide HCl 5 mg Q8HR IV 11/13/24 14:00 11/19/24 05:31 5 MG Ertapenem 1 gm/ Sodium Chloride 50 ml @ 100 mls/hr DAILY IV 11/14/24 10:00 11/19/24 10:12 100 MLS/HR Lorazepam 1 mg Q4HP PRN IV 11/14/24 16:15 11/18/24 20:05 1 MG Dextrose 1,000 ml @ 50 mls/hr Q20H IV 11/17/24 10:00 11/18/24 13:32 50 MLS/HR Albuterol 2.5 mg Q3HPRN PRN NEB 11/18/24 10:30 Acetylcysteine 100 mg Q6HR NEB 11/18/24 12:00 11/19/24 12:10 100 MG Iron Sucrose 110 ml @ 110 mls/hr DAILY@1200 IV 11/18/24 12:00 11/22/24 12:59 11/19/24 13:26 110 MLS/HR Dopamine HCl/ Dextrose 250 ml @ 10.369 mls/ hr Q24H IV 11/18/24 14:45 Enoxaparin Sodium 30 mg DAILY SC 11/19/24 10:00 11/19/24 10:10 30 MG Metoprolol Tartrate 25 mg BID PO 11/19/24 10:00 11/19/24 10:11 25 MG Examination: GENERAL:Abnormal, LUNGS:Abnormal laboratory and microbiology Laboratory Tests 11/19/24 03:14 Test 11/19/24 03:14 Range/Units Serum Glucose 93 # 74-106 mg/dL Microbiology Date/Time Source Procedure Growth Status 11/14/24 08:27 Blood Blood Culture - Final NO GROWTH AFTER 5 DAYS OF INCUBATION. Complete 11/10/24 22:44 Voided Urine Urine Culture - Final Complete 10/18/24 09:21 Pleural Fluid Gram Stain - Final Complete 10/18/24 09:21 Pleural Fluid Body Fluid Culture - Final Complete 10/16/24 12:05 Bronchial Washings Gram Stain - Final Complete 10/16/24 12:05 Bronchial Washings Respiratory Culture - Final Complete 10/04/24 17:10 Nose MRSA Screen - Final Complete Problem List/Assessment/Plan Problem List/Assessment/Plan 48-year-old male presents to the hospital abdominal pain patient was diagnosed with acute gastric perforation status post surgery . Acute kidney injury hemodynamically mediated requiring acute inpatient hemodialysis Acute respiratory failure -> now trach to vent Perforated gastric ulcer status post exploratory laparoscopic surgery Anemia due to chronic disease/inflammation feeding and electrolyte replacement repeat iron panel-> now depleted IV iron Epogen 3x a week keep MAP > 65 Albumin for support Avoid hypotension Strict Is&Os stable from renal standpoint will sign off the case Plan discussed with: Patient Dietary Evaluation Review Comments: 1. Continue TPN to meet at least 75% estimated needs 2. Continue current POC Expected Outcomes/Goals: FU 2-3 days to meet adequate energy & protein within 7 days of NPO Protein Calorie Malnutrition: Severe (rn) Total Time (mins): 35 CC Plasma Assessment Blood Product Administration S: [id number] ISABELLE CASTELLANO MD Nov 19, 2024 14:00
[2024-11-19] MEDS: LACTATED RINGER'S 1,000 ML IV SCH (17:30)
[2024-11-19] MEDS: EPOETIN ALFA-EPBX 10,000 UNIT/1ML VIAL SC SCH (21:03)
--- NOTE | 2024-11-19 23:29 | DVH ---
Date: 11/19/2024 10:58 PM Examination: XY KUB ABDOMEN SINGLE VIEW History: Dobbhoff placement Comparison: XY KUB ABDOMEN SINGLE VIEW on DOS: 11/19/24 TECHNIQUE: Frontal views of the abdomen was obtained. FINDINGS: Bowel gas pattern is unremarkable. Patchy airspace opacities in the lung bases greater on the left. No acute osseous abnormality identified. Tracheostomy projects above the dunia. Gastric tube in place with the tip projecting over the distal body of the stomach. Right-sided pigtail drainage catheter projects over the right upper quadrant. IMPRESSION: Gastric tube in place with the tip projecting over the distal body of the stomach. Patchy airspace opacities in the lung bases, greater on the left which could reflect pneumonia.
--- NOTE | 2024-11-19 23:54 | DVHPN2 ---
Progress Note - Dictate Date Seen: Nov 19, 2024 Has the PT tested + for MRSA If YES, has PT been informed?: No Medical Necessity Reason Pt with a Central, PICC or Fol: Yes The following are medically ne: Central Line, Gómez Catheter Reason for gómez catheter: Strict I&O Subjective Patient seen and examined at bedside. Currently on humidified O2 via trach. Overnight events reviewed. vital signs Vital Sign Date Time Temp Pulse Resp B/P (MAP) Pulse Ox O2 Delivery O2 Flow Rate FiO2 11/19/24 23:33 117 25 165/84 (111) 91 45 11/19/24 22:00 Trach Collar 8 11/19/24 17:00 98.6 98.6 Total Intake and Output 11/18/24 11/18/24 11/19/24 15:00 23:00 07:00 Intake Total 410 ml 450 ml 400 ml Output Total 700 ml 310 ml Balance 410 ml -250 ml 90 ml medications Current Medications Medications Dose Ordered Sig/Wally Route Start Time Stop Time Status Last Admin Dose Admin Ondansetron HCl 4 mg Q4HP PRN IV 10/04/24 11:45 Morphine Sulfate 2 mg Q4HPRN PRN IV 10/04/24 11:45 Cancel Nitroglycerin 0.4 mg Q5MINP PRN SL 10/04/24 11:45 Morphine Sulfate 2 mg Q30M PRN IV 10/04/24 11:45 Cancel Lorazepam 50 mg/ Sodium Chloride 50 ml @ 1 mls/hr Q24H IV 10/04/24 18:15 Cancel Amino Acids 0 ml @ 0 mls/hr PER PHARMACY IV 10/05/24 14:30 UNV Meropenem 50 ml @ 17 mls/hr Q12HR IV 10/07/24 10:00 UNV Levalbuterol HCl 0.625 mg Q6HR NEB 10/13/24 12:00 11/19/24 23:33 0.625 MG Ipratropium [place] 0.5 mg Q6HR NEB 10/13/24 12:00 11/19/24 23:33 0.5 MG Morphine Sulfate 2 mg Q4HPRN PRN IV 10/21/24 11:30 11/10/24 05:15 2 MG Acetaminophen 650 mg Q6HP PRN GT 10/22/24 09:00 11/10/24 08:08 650 MG Sucralfate 1 gm BID@0600,2200 GT 10/28/24 22:00 11/19/24 22:05 1 GM Pantoprazole Sodium 50 ml @ 0 mls/hr Q0M IV 10/28/24 16:15 Cancel Sodium Chloride 10 ml QSHIFT@10,22 IV 10/31/24 22:00 11/19/24 10:12 10 ML Micafungin Sodium 100 mg/Sodium Chloride 100 ml @ 100 mls/hr DAILY IV 11/02/24 10:00 11/19/24 11:42 100 MLS/HR Acetaminophen/ Hydrocodone Bitart 1 tab Q4HPRN PRN PO 11/06/24 09:15 Lactulose 30 ml DAILY JT 11/11/24 10:00 11/19/24 10:10 30 ML Amlodipine Besylate 10 mg DAILY GT 11/11/24 10:00 11/19/24 10:11 10 MG Labetalol HCl 10 mg Q2HPRN PRN IV 11/12/24 17:00 11/17/24 19:40 10 MG Hydralazine HCl 50 mg Q8HR GT 11/13/24 14:00 11/19/24 22:05 50 MG Clonidine HCl 0.1 mg Q7D TD 11/13/24 07:00 11/13/24 08:35 0.1 MG Pantoprazole Sodium 40 mg BID IV 11/13/24 10:00 11/19/24 22:05 40 MG Metoclopramide HCl 5 mg Q8HR IV 11/13/24 14:00 11/19/24 22:05 5 MG Ertapenem 1 gm/ Sodium Chloride 50 ml @ 100 mls/hr DAILY IV 11/14/24 10:00 11/19/24 10:12 100 MLS/HR Lorazepam 1 mg Q4HP PRN IV 11/14/24 16:15 11/18/24 20:05 1 MG Albuterol 2.5 mg Q3HPRN PRN NEB 11/18/24 10:30 Acetylcysteine 100 mg Q6HR NEB 11/18/24 12:00 11/19/24 23:33 100 MG Iron Sucrose 110 ml @ 110 mls/hr DAILY@1200 IV 11/18/24 12:00 11/22/24 12:59 11/19/24 13:26 110 MLS/HR Dopamine HCl/ Dextrose 250 ml @ 10.369 mls/ hr Q24H IV 11/18/24 14:45 Enoxaparin Sodium 30 mg DAILY SC 11/19/24 10:00 11/19/24 10:10 30 MG Metoprolol Tartrate 25 mg BID PO 11/19/24 10:00 11/19/24 22:06 25 MG Epoetin Roger-epbx 10,000 unit MWF@2100 SC 11/19/24 21:00 11/19/24 21:03 10,000 UNIT Lactated Ringer's 1,000 ml @ 100 mls/hr Q10H IV 11/19/24 17:30 11/19/24 17:30 100 MLS/HR objective Gen.: Patient lying in bed in no apparent distress. On humidified O2 via trach Head: Normocephalic, atraumatic. Eyes: EOMI/PERRLA. Ears: Normal hearing. Normal anatomy. Neck/trachea: Trach in place. Nose: Normal external anatomy. Mouth: Moist mucous membranes. Chest: Decreased air entry bilaterally. No wheezing or rhonchi. Cardiovascular: Positive S1, positive S2. Regular rate and rhythm. Abdomen: Positive bowel sounds in all 4 quadrants. Soft, non-tender, non- distended. : Deferred. Rectal: Deferred. Skin: Warm, dry. Intact. Extremities: 2+ radial pulses bilaterally. No lower extremity edema. Neuro: Awake, alert, oriented x3. No gross motor or sensory deficits. Cranial nerves II through XII intact. Gait not assessed. laboratory and microbiology Laboratory Tests 11/19/24 03:14 Test 11/19/24 03:14 Range/Units Serum Glucose 93 # 74-106 mg/dL Assessment/Plan Impression: Acute hypoxic respiratory failure Mechanical ventilator PRN S/p tracheostomy Septic shock Perforated viscus s/p repair Nicotine dependence Events: S/p tracheostomy Currently on humidified O2 via tracheostomy, on 8 L at 35% Note, patient was placed on vent for respiratory distress yesterday Remains trached with 8.0 cuffed Shiley Trach collar/T-piece Passy Sam valve. Trach care per RT. IV fluids with LR at 100 ml/hr. Continue antifungal Complete course of antibiotics Repeat blood cultures showed no growth x72 hours Head of bed elevation Aspiration precautions CXR today reviewed, demonstrates patchy bilateral airspace disease. CT chest, abdomen and pelvis on 10/19/24 revealed right lower lobe consolidation. Small right pleural effusion with pleural thickening. This could represent pneumonia with parapneumonic effusion. Trace left pleural effusion and left lower lobe consolidation. Monitor Hgb Protonix BID for GI ppx GI recs appreciated. Clear liquids Monitor residuals Monitor drain output. Labs and imaging reviewed Plan: S/p tracheostomy, on humidified O2 Titrate to maintain sats above 92% Continue support on vent Place on full vent support if any distress. Trach collar Trach care per RT. Follow up with General Surgery Continue antibiotics and antifungals F/u cultures Bronchodilators Complete abx course Monitor Hgb Protonix BID for GI ppx Monitor renal function Monitor electrolytes Supplement as needed HD per nephrology Nutritional support DVT prophylaxis Prognosis: Guarded given patient's multiple co-morbidities. Rest of plan per hospitalist and other consultants. Thank you, [employer] Werner, for allowing me to participate in this patient's care. Further recommendations will depend on the patient's clinical course. Please do not hesitate to contact me if you have any questions or concerns. This medical document was created using an electronic medical record system with [employer] dictation system. Although these documentations are being carefully reviewed, there may still be some phonetic and typographical changes. The errors are purely typographical, due to imperfection on the software program, and do not reflect any compromise in the patient's medical care. Dietary Evaluation Review Comments: 1. Continue TPN to meet at least 75% estimated needs 2. Continue current POC Expected Outcomes/Goals: FU 2-3 days to meet adequate energy & protein within 7 days of NPO Protein Calorie Malnutrition: Severe (rn) Plan discussed with: Patient, Other (JASPER Alba) CC Plasma Assessment Blood Product Administration S: [id number] ARIE LOPEZ MD Nov 19, 2024 23:54
[2024-11-20] VITALS (59 sets, daily range): BP systolic 112–182; BP diastolic 54–95; PULSE 70–124; RESP 15–30; TEMP 97.8–100.8; O2SAT 87–100
[2024-11-20 03:57] LABS: Hematocrit 27.5 % (41.0-53.0); Hemoglobin 8.8 g/dL (13.5-17.5); Mean Corpuscular Hemoglobin 27.5 pg (28.0-32.0); Mean Corpuscular Volume 86.1 fL (80.0-100.0); Nucleated Red Blood Cells % 0.0 %
[2024-11-20 04:01] LABS: Chloride 106 mmol/L (98-107); Potassium 3.5 mmol/L (3.5-5.1); Sodium 137 mmol/L (136-145)
[2024-11-20 04:02] LABS: Anion Gap 10 (5-15); Carbon Dioxide 21 mmol/L (20-31)
[2024-11-20 04:07] LABS: BUN/Creatinine Ratio 12.1 (10.0-20.0); Blood Urea Nitrogen 19 mg/dL (9-23)
[2024-11-20 04:25] LABS: Calcium 8.3 mg/dL (8.7-10.4); Glucose 107 mg/dL (74-106)
--- NOTE | 2024-11-20 08:32 | DVHPN2 ---
Subjective Patient is alert following commands. Denies any symptoms. Reviewed: Care Plan, H&P, Labs, Medications, Previous Orders, Radiology, Other (Consultants) Changes from previous H/P or p: No Changes General: Per HPI Objective Vitals Vital Signs Date Time Temp Pulse Resp B/P (MAP) Pulse Ox O2 Delivery O2 Flow Rate FiO2 11/20/24 06:47 121 24 160/85 (110) 96 45 11/20/24 06:00 Mechanical Ventilator+ 0 11/20/24 04:00 100.8 100.8 Intake/Output Intake and Output 11/20/24 07:00 Intake Total 2030 ml Output Total 1125 ml Balance 905 ml Intake Oral 220 ml IV Total 1810 ml Output Urine Total 800 ml Drainage Total 325 ml General Appearance: Alert, Oriented X3, Cooperative, mild distress, Other HEENT: Atraumatic, PERRLA Lungs: Clear to auscultation, Normal air movement, Other Cardiovascular: Normal S1, Normal S2, Other Abdomen: Other Extremities: Normal pulses Neuro: Cranial nerves 3-12 NL, Other Skin: Dry, Intact, Wounds, Other Psych/Mental Status: Other Medications Current Medications Medications Dose Ordered Sig/Wally Route Start Time Stop Time Status Last Admin Dose Admin Ondansetron HCl 4 mg Q4HP PRN IV 10/04/24 11:45 Morphine Sulfate 2 mg Q4HPRN PRN IV 10/04/24 11:45 Cancel Nitroglycerin 0.4 mg Q5MINP PRN SL 10/04/24 11:45 Morphine Sulfate 2 mg Q30M PRN IV 10/04/24 11:45 Cancel Lorazepam 50 mg/ Sodium Chloride 50 ml @ 1 mls/hr Q24H IV 10/04/24 18:15 Cancel Amino Acids 0 ml @ 0 mls/hr PER PHARMACY IV 10/05/24 14:30 UNV Meropenem 50 ml @ 17 mls/hr Q12HR IV 10/07/24 10:00 UNV Levalbuterol HCl 0.625 mg Q6HR NEB 10/13/24 12:00 11/20/24 06:45 0.625 MG Ipratropium [place] 0.5 mg Q6HR NEB 10/13/24 12:00 11/20/24 06:45 0.5 MG Morphine Sulfate 2 mg Q4HPRN PRN IV 10/21/24 11:30 11/10/24 05:15 2 MG Acetaminophen 650 mg Q6HP PRN GT 10/22/24 09:00 11/10/24 08:08 650 MG Sucralfate 1 gm BID@0600,2200 GT 10/28/24 22:00 11/20/24 06:12 1 GM Pantoprazole Sodium 50 ml @ 0 mls/hr Q0M IV 10/28/24 16:15 Cancel Sodium Chloride 10 ml QSHIFT@10,22 IV 10/31/24 22:00 11/19/24 22:03 10 ML Micafungin Sodium 100 mg/Sodium Chloride 100 ml @ 100 mls/hr DAILY IV 11/02/24 10:00 11/19/24 11:42 100 MLS/HR Acetaminophen/ Hydrocodone Bitart 1 tab Q4HPRN PRN PO 11/06/24 09:15 Lactulose 30 ml DAILY JT 11/11/24 10:00 11/19/24 10:10 30 ML Amlodipine Besylate 10 mg DAILY GT 11/11/24 10:00 11/19/24 10:11 10 MG Labetalol HCl 10 mg Q2HPRN PRN IV 11/12/24 17:00 11/17/24 19:40 10 MG Hydralazine HCl 50 mg Q8HR GT 11/13/24 14:00 11/20/24 06:12 50 MG Clonidine HCl 0.1 mg Q7D TD 11/13/24 07:00 11/13/24 08:35 0.1 MG Pantoprazole Sodium 40 mg BID IV 11/13/24 10:00 11/19/24 22:05 40 MG Metoclopramide HCl 5 mg Q8HR IV 11/13/24 14:00 11/20/24 06:12 5 MG Ertapenem 1 gm/ Sodium Chloride 50 ml @ 100 mls/hr DAILY IV 11/14/24 10:00 11/19/24 10:12 100 MLS/HR Lorazepam 1 mg Q4HP PRN IV 11/14/24 16:15 11/18/24 20:05 1 MG Albuterol 2.5 mg Q3HPRN PRN NEB 11/18/24 10:30 Acetylcysteine 100 mg Q6HR NEB 11/18/24 12:00 11/20/24 06:45 100 MG Iron Sucrose 110 ml @ 110 mls/hr DAILY@1200 IV 11/18/24 12:00 11/22/24 12:59 11/19/24 13:26 110 MLS/HR Dopamine HCl/ Dextrose 250 ml @ 10.369 mls/ hr Q24H IV 11/18/24 14:45 Enoxaparin Sodium 30 mg DAILY SC 11/19/24 10:00 11/19/24 10:10 30 MG Metoprolol Tartrate 25 mg BID PO 11/19/24 10:00 11/19/24 10:11 25 MG Epoetin Roger-epbx 10,000 unit MWF@2100 SC 11/19/24 21:00 11/19/24 21:03 10,000 UNIT Lactated Ringer's 1,000 ml @ 100 mls/hr Q10H IV 11/19/24 17:30 11/20/24 05:08 100 MLS/HR Laboratory Results Laboratory Tests 11/20/24 03:09 Chemistry Test 11/20/24 03:09 Calcium Level 8.3 mg/dL (8.7-10.4) L Urinalysis Test 10/05/24 15:05 10/26/24 20:33 11/07/24 12:40 Urine Mucus Few (None Seen) Urine Color Light-yellow (Yellow) Urine Clarity Clear (Clear) Urine pH 7.0 (5.0-9.0) Urine Specific [place] 1.014 (1.001-1.035) Urine Protein 1+ (Negative) H Urine Ketones Negative (Negative) Urine Blood 1+ /uL (Negative) H Urine Nitrite Negative (Negative) Urine Bilirubin Negative (Negative) Urine Urobilinogen Normal mg/dL (Negative) Urine Leukocyte Esterase Negative /uL (Negative) Urine RBC 1 /hpf (0 - 3) Urine Microscopic WBC 3 /HPF (0-3) Urine Squamous Epithelial Cells None seen /hpf (<5) Urine Bacteria Few /hpf (None Seen) H Urine Glucose Normal mg/dL (Normal) Urine Creatinine 64.63 mg/dL (30.0-125.0) Urine Protein/Creatinine Ratio 3.11 Urine Sodium 34 mmol/L (40-220) L Urine Total Protein 200.7 mg/dL (1-14) H Microbiology Microbiology Date/Time Source Procedure Growth Status 11/14/24 08:27 Blood Blood Culture - Final NO GROWTH AFTER 5 DAYS OF INCUBATION. Complete 11/10/24 22:44 Voided Urine Urine Culture - Final Complete 10/18/24 09:21 Pleural Fluid Gram Stain - Final Complete 10/18/24 09:21 Pleural Fluid Body Fluid Culture - Final Complete 10/16/24 12:05 Bronchial Washings Gram Stain - Final Complete 10/16/24 12:05 Bronchial Washings Respiratory Culture - Final Complete 10/04/24 17:10 Nose MRSA Screen - Final Complete Labs and/or images reviewed: Image(s) reviewed by me Assessment/Plan Assessment/Plan Impression: -severe septic shock -pneumoperitoneum secondary to perforated gastric ulcer -acute kidney injury, hemodynamically mediated, probable VMN -acute hypoxic respiratory failure -shock liver -nicotine dependence -history of CVA -right upper extremity DVT -multifocal pneumonia, probable Gram-positive/Gram-negative etiology -anemia secondary to nutrition, renal failure -bilateral pleural effusions -small left pneumothorax -Failure of ventilator weaning, status post tracheostomy -fungemia Plan: Events: Patient had NG tube dislodged yesterday. New Dobbhoff placed with tip still remaining in distal stomach. IR consultation for appropriate placement of [place] tube. Patient with increasing white blood cell count. Repeat blood and sputum cultures. -continue current antihypertensives -GI consultation: Discussed case. -antibiotic therapy: Invanz, micafungin, add Zyvox to cover for VAP -nephrology consultation: Daily assessment for hemodialysis -physical therapy -repeat labs in am Critical care time spent with patient discussing and formulating plan of care: 40 minutes. This does not include time spent performing procedures. This medical document was created using an electronic medical record system with [employer] dictation system. Although this document has been carefully reviewed, there may still be some phonetic and typographical errors. These areas are purely typographical due to imperfections of the software programs, and do not reflect any compromise in the patient's medical care. Plan discussed with: Patient, Other (RN) My Orders Orders - CHEYENNE PIKE NP Procedure Category Date Status Time Complete Blood Count LAB 11/21/24 Verified 05:00 Complete Blood Count LAB 11/22/24 Verified 05:00 Communication Order ORDERS 11/19/24 Transmitted 09:12 Communication Order ORDERS 11/19/24 Transmitted 09:12 Communication Order ORDERS 11/19/24 Transmitted 13:53 Lactated Ringer's PHA 11/19/24 In Process 17:30 Clear Liq Diet DIET 11/19/24 Transmitted Dinner Kub Abdomen Single XY 11/19/24 Resulted View 22:43 Blood Culture HOLA 11/20/24 In Process 07:17 Respiratory Culture HOLA 11/20/24 Logged W/ Gs 07:17 * Radiologist Consult CONS 11/20/24 Transmitted 07:17 Lactated Ringers Lr PHA 11/20/24 Verified 08:30 Linzeolid 600 Mg Ivpb PHA 11/20/24 Verified 10:00 Pantoprazole Tablet PHA 11/20/24 Verified (Protonix Tablet) 17:00 Labetalol Hcl Tablet PHA 11/20/24 Verified (Normodyne Tablet) 10:00 Date of Service: Nov 20, 2024 Billing Provider: CHEYENNE PIKE NP Common Visit Codes: [id number] CARE 30-74 MIN CHEYENNE PIKE NP Nov 20, 2024 08:32
[2024-11-20] MEDS: LABETALOL HCL 200 MG TAB GT SCH (10:29)
[2024-11-20] MEDS: LINEZOLID 600MG/300ML 300 ML IV SCH (10:30)
[2024-11-20] MEDS: LACTATED RINGER'S 1,000 ML IV SCH (10:47)
[2024-11-20] MEDS: PANTOPRAZOLE 40 MG TAB PO SCH (17:00)
[2024-11-21] VITALS (65 sets, daily range): BP systolic 99–154; BP diastolic 38–78; PULSE 62–103; RESP 13–37; TEMP 97.7–98.1; O2SAT 94–100
[2024-11-21 03:39] LABS: Hemoglobin 7.7 g/dL (13.5-17.5)
[2024-11-21 03:42] LABS: Hematocrit 23.4 % (41.0-53.0); Mean Corpuscular Hemoglobin 27.8 pg (28.0-32.0); Mean Corpuscular Volume 84.8 fL (80.0-100.0); Nucleated Red Blood Cells % 0.1 %
[2024-11-21 03:49] LABS: Anion Gap 10 (5-15); Carbon Dioxide 23 mmol/L (20-31); Chloride 105 mmol/L (98-107); Sodium 138 mmol/L (136-145)
[2024-11-21 03:55] LABS: BUN/Creatinine Ratio 11.0 (10.0-20.0); Blood Urea Nitrogen 13 mg/dL (9-23); Glucose 88 mg/dL (74-106)
[2024-11-21 04:07] LABS: Calcium 8.2 mg/dL (8.7-10.4); Potassium 3.1 mmol/L (3.5-5.1)
[2024-11-21] MEDS: POTASSIUM CHL 20MEQ/100ML 100 ML IV SCH (05:45)
--- NOTE | 2024-11-21 05:47 | DVH ---
Date: 11/21/2024 05:25 AM Examination: XY KUB ABDOMEN SINGLE VIEW History: dobbhoff placement Comparison: XY KUB ABDOMEN SINGLE VIEW on DOS: 11/19/24, XY KUB ABDOMEN SINGLE VIEW on DOS: 11/19/24, XY KUB ABDOMEN SINGLE VIEW on DOS: 10/31/24, XY KUB ABDOMEN SINGLE VIEW on DOS: 10/29/24, XY KUB ABDOMEN S ED VIEW on DOS: 10/16/24 TECHNIQUE: Frontal views of the abdomen was obtained. FINDINGS: Bowel gas pattern is unremarkable. The lung bases are unremarkable. No acute osseous abnormality identified. IMPRESSION: Dobbhoff feeding tube in the distal stomach / proximal duodenum.
--- NOTE | 2024-11-21 11:18 | DVHPN2 ---
Subjective Patient is alert following commands. Denies any symptoms. Reviewed: Care Plan, H&P, Labs, Medications, Previous Orders, Radiology, Other (Consultants) Changes from previous H/P or p: No Changes General: Per HPI Objective Vitals Vital Signs Date Time Temp Pulse Resp B/P (MAP) Pulse Ox O2 Delivery O2 Flow Rate FiO2 11/21/24 10:06 99 116/59 11/21/24 06:30 16 98 11/21/24 06:00 T-piece 8 35 35 11/21/24 04:00 97.9 97.9 Intake/Output Intake and Output 11/21/24 07:00 Intake Total 2970 ml Output Total 1600 ml Balance 1370 ml Intake Oral 550 ml IV Total 2420 ml Output Urine Total 1100 ml Drainage Total 500 ml # Bowel Movements 2 General Appearance: Alert, Oriented X3, Cooperative, mild distress, Other HEENT: Atraumatic, PERRLA Lungs: Clear to auscultation, Normal air movement, Other Cardiovascular: Normal S1, Normal S2, Other Abdomen: Other Extremities: Normal pulses Neuro: Cranial nerves 3-12 NL, Other Skin: Dry, Intact, Wounds, Other Psych/Mental Status: Other Medications Current Medications Medications Dose Ordered Sig/Wally Route Start Time Stop Time Status Last Admin Dose Admin Ondansetron HCl 4 mg Q4HP PRN IV 10/04/24 11:45 Morphine Sulfate 2 mg Q4HPRN PRN IV 10/04/24 11:45 Cancel Nitroglycerin 0.4 mg Q5MINP PRN SL 10/04/24 11:45 Morphine Sulfate 2 mg Q30M PRN IV 10/04/24 11:45 Cancel Lorazepam 50 mg/ Sodium Chloride 50 ml @ 1 mls/hr Q24H IV 10/04/24 18:15 Cancel Amino Acids 0 ml @ 0 mls/hr PER PHARMACY IV 10/05/24 14:30 UNV Meropenem 50 ml @ 17 mls/hr Q12HR IV 10/07/24 10:00 UNV Levalbuterol HCl 0.625 mg Q6HR NEB 10/13/24 12:00 11/21/24 05:36 0.625 MG Ipratropium [place] 0.5 mg Q6HR NEB 10/13/24 12:00 11/21/24 05:36 0.5 MG Morphine Sulfate 2 mg Q4HPRN PRN IV 10/21/24 11:30 11/10/24 05:15 2 MG Acetaminophen 650 mg Q6HP PRN GT 10/22/24 09:00 11/10/24 08:08 650 MG Sucralfate 1 gm BID@0600,2200 GT 10/28/24 22:00 11/21/24 05:47 1 GM Pantoprazole Sodium 50 ml @ 0 mls/hr Q0M IV 10/28/24 16:15 Cancel Sodium Chloride 10 ml QSHIFT@10,22 IV 10/31/24 22:00 11/21/24 10:10 10 ML Micafungin Sodium 100 mg/Sodium Chloride 100 ml @ 100 mls/hr DAILY IV 11/02/24 10:00 11/21/24 10:10 100 MLS/HR Acetaminophen/ Hydrocodone Bitart 1 tab Q4HPRN PRN PO 11/06/24 09:15 Lactulose 30 ml DAILY JT 11/11/24 10:00 11/20/24 10:27 30 ML Amlodipine Besylate 10 mg DAILY GT 11/11/24 10:00 11/21/24 10:05 10 MG Labetalol HCl 10 mg Q2HPRN PRN IV 11/12/24 17:00 11/17/24 19:40 10 MG Hydralazine HCl 50 mg Q8HR GT 11/13/24 14:00 11/21/24 05:47 50 MG Clonidine HCl 0.1 mg Q7D TD 11/13/24 07:00 11/20/24 08:12 0.1 MG Metoclopramide HCl 5 mg Q8HR IV 11/13/24 14:00 11/21/24 05:47 5 MG Ertapenem 1 gm/ Sodium Chloride 50 ml @ 100 mls/hr DAILY IV 11/14/24 10:00 11/21/24 10:10 100 MLS/HR Lorazepam 1 mg Q4HP PRN IV 11/14/24 16:15 11/18/24 20:05 1 MG Albuterol 2.5 mg Q3HPRN PRN NEB 11/18/24 10:30 Acetylcysteine 100 mg Q6HR NEB 11/18/24 12:00 11/21/24 05:36 100 MG Iron Sucrose 110 ml @ 110 mls/hr DAILY@1200 IV 11/18/24 12:00 11/22/24 12:59 11/20/24 12:48 110 MLS/HR Enoxaparin Sodium 30 mg DAILY SC 11/19/24 10:00 11/21/24 10:10 30 MG Epoetin Roger-epbx 10,000 unit MWF@2100 SC 11/19/24 21:00 11/19/24 21:03 10,000 UNIT Lactated Ringer's 1,000 ml @ 60 mls/hr [id number] IV 11/20/24 08:30 11/20/24 21:09 60 MLS/HR Linezolid 300 ml @ 150 mls/hr Q12HR@0800,2000 IV 11/20/24 08:46 11/21/24 09:15 150 MLS/HR Pantoprazole Sodium 40 mg BID@0600,1700 PO 11/20/24 17:00 Labetalol HCl 100 mg Q12HR GT 11/20/24 10:00 11/21/24 10:06 100 MG Laboratory Results Laboratory Tests 11/21/24 02:52 Chemistry Test 11/21/24 02:52 Calcium Level 8.2 mg/dL (8.7-10.4) L Urinalysis Test 10/05/24 15:05 10/26/24 20:33 11/07/24 12:40 Urine Mucus Few (None Seen) Urine Color Light-yellow (Yellow) Urine Clarity Clear (Clear) Urine pH 7.0 (5.0-9.0) Urine Specific [place] 1.014 (1.001-1.035) Urine Protein 1+ (Negative) H Urine Ketones Negative (Negative) Urine Blood 1+ /uL (Negative) H Urine Nitrite Negative (Negative) Urine Bilirubin Negative (Negative) Urine Urobilinogen Normal mg/dL (Negative) Urine Leukocyte Esterase Negative /uL (Negative) Urine RBC 1 /hpf (0 - 3) Urine Microscopic WBC 3 /HPF (0-3) Urine Squamous Epithelial Cells None seen /hpf (<5) Urine Bacteria Few /hpf (None Seen) H Urine Glucose Normal mg/dL (Normal) Urine Creatinine 64.63 mg/dL (30.0-125.0) Urine Protein/Creatinine Ratio 3.11 Urine Sodium 34 mmol/L (40-220) L Urine Total Protein 200.7 mg/dL (1-14) H Microbiology Microbiology Date/Time Source Procedure Growth Status 11/20/24 09:56 Sputum Gram Stain - Final Resulted 11/20/24 09:56 Sputum Respiratory Culture - Preliminary Resulted 11/20/24 08:16 Blood Blood Culture - Preliminary NO GROWTH AFTER 24 HOURS OF INCUBATION. Resulted 11/10/24 22:44 Voided Urine Urine Culture - Final Complete 10/18/24 09:21 Pleural Fluid Gram Stain - Final Complete 10/18/24 09:21 Pleural Fluid Body Fluid Culture - Final Complete 10/04/24 17:10 Nose MRSA Screen - Final Complete Labs and/or images reviewed: Labs reviewed by me, Image(s) reviewed by me Assessment/Plan Assessment/Plan 11/21 patient has been in the hospital for a prolonged stay. He has history of CVA he is close to quadriplegic but has some hand movement. Patient remains on broad spectrum antibiotics ertapenem micafungin and Zyvox. Patient had pneumoperitoneum currently has a biliary drain with light brown output. Currently on no vasopressors. Receiving fluids 60 cc/hour. She is having diarrhea. We will start some feeds as patient is not on any kind of parenteral or enteral feeds. Start clear liquid diet through Dobbhoff. Patient's Dobbhoff was placed through help of IR yesterday. Resume rest of care per primary team plan. Impression: -severe septic shock -pneumoperitoneum secondary to perforated gastric ulcer -acute kidney injury, hemodynamically mediated, probable VMN -acute hypoxic respiratory failure -shock liver -nicotine dependence -history of CVA -right upper extremity DVT -multifocal pneumonia, probable Gram-positive/Gram-negative etiology -anemia secondary to nutrition, renal failure -bilateral pleural effusions -small left pneumothorax -Failure of ventilator weaning, status post tracheostomy -fungemia Plan: -continue current antihypertensives -GI consultation: Discussed case. -antibiotic therapy: Invanz, micafungin, add Zyvox to cover for VAP -nephrology consultation: Daily assessment for hemodialysis -physical therapy Critical care time spent with patient discussing and formulating plan of care: 40 minutes. This does not include time spent performing procedures. Plan discussed with: Patient Date of Service: Nov 21, 2024 Billing Provider: ELVIN WHATLEY MD Common Visit Codes: [id number] CARE 30-74 MIN ELVIN WHATLEY MD Nov 21, 2024 11:18
[2024-11-21] MEDS: MAGNESIUM SULFATE 1GM/100ML 100 ML IV SCH (19:51)
--- NOTE | 2024-11-21 23:56 | DVHPN2 ---
Progress Note - Dictate Date Seen: Nov 20, 2024 Has the PT tested + for MRSA If YES, has PT been informed?: No Medical Necessity Reason Pt with a Central, PICC or Fol: Yes The following are medically ne: Central Line, Gómez Catheter Reason for gómez catheter: Strict I&O Subjective Patient seen and examined at bedside. Currently on humidified O2 via trach. Overnight events reviewed. vital signs Vital Sign Date Time Temp Pulse Resp B/P (MAP) Pulse Ox O2 Delivery O2 Flow Rate FiO2 11/21/24 22:00 77 19 142/65 (90) 98 11/21/24 22:00 T-piece 8 35 35 11/21/24 20:00 98.0 98.0 Total Intake and Output 11/20/24 11/20/24 11/21/24 15:00 23:00 07:00 Intake Total 1220 ml 480 ml 1330 ml Output Total 950 ml 650 ml Balance 1220 ml -470 ml 680 ml medications Current Medications Medications Dose Ordered Sig/Wally Route Start Time Stop Time Status Last Admin Dose Admin Ondansetron HCl 4 mg Q4HP PRN IV 10/04/24 11:45 Morphine Sulfate 2 mg Q4HPRN PRN IV 10/04/24 11:45 Cancel Nitroglycerin 0.4 mg Q5MINP PRN SL 10/04/24 11:45 Morphine Sulfate 2 mg Q30M PRN IV 10/04/24 11:45 Cancel Lorazepam 50 mg/ Sodium Chloride 50 ml @ 1 mls/hr Q24H IV 10/04/24 18:15 Cancel Amino Acids 0 ml @ 0 mls/hr PER PHARMACY IV 10/05/24 14:30 UNV Meropenem 50 ml @ 17 mls/hr Q12HR IV 10/07/24 10:00 UNV Levalbuterol HCl 0.625 mg Q6HR NEB 10/13/24 12:00 11/21/24 18:20 0.625 MG Ipratropium [place] 0.5 mg Q6HR NEB 10/13/24 12:00 11/21/24 18:20 0.5 MG Morphine Sulfate 2 mg Q4HPRN PRN IV 10/21/24 11:30 11/10/24 05:15 2 MG Acetaminophen 650 mg Q6HP PRN GT 10/22/24 09:00 11/10/24 08:08 650 MG Sucralfate 1 gm BID@0600,2200 GT 10/28/24 22:00 11/21/24 21:58 1 GM Pantoprazole Sodium 50 ml @ 0 mls/hr Q0M IV 10/28/24 16:15 Cancel Sodium Chloride 10 ml QSHIFT@10,22 IV 10/31/24 22:00 11/21/24 21:59 10 ML Micafungin Sodium 100 mg/Sodium Chloride 100 ml @ 100 mls/hr DAILY IV 11/02/24 10:00 11/21/24 10:10 100 MLS/HR Acetaminophen/ Hydrocodone Bitart 1 tab Q4HPRN PRN PO 11/06/24 09:15 Lactulose 30 ml DAILY JT 11/11/24 10:00 11/20/24 10:27 30 ML Amlodipine Besylate 10 mg DAILY GT 11/11/24 10:00 11/21/24 10:05 10 MG Labetalol HCl 10 mg Q2HPRN PRN IV 11/12/24 17:00 11/17/24 19:40 10 MG Hydralazine HCl 50 mg Q8HR GT 11/13/24 14:00 11/21/24 21:59 50 MG Clonidine HCl 0.1 mg Q7D TD 11/13/24 07:00 11/20/24 08:12 0.1 MG Metoclopramide HCl 5 mg Q8HR IV 11/13/24 14:00 11/21/24 21:58 5 MG Ertapenem 1 gm/ Sodium Chloride 50 ml @ 100 mls/hr DAILY IV 11/14/24 10:00 11/21/24 10:10 100 MLS/HR Lorazepam 1 mg Q4HP PRN IV 11/14/24 16:15 11/18/24 20:05 1 MG Albuterol 2.5 mg Q3HPRN PRN NEB 11/18/24 10:30 Acetylcysteine 100 mg Q6HR NEB 11/18/24 12:00 11/21/24 18:20 100 MG Iron Sucrose 110 ml @ 110 mls/hr DAILY@1200 IV 11/18/24 12:00 11/22/24 12:59 11/21/24 13:16 110 MLS/HR Epoetin Roger-epbx 10,000 unit MWF@2100 SC 11/19/24 21:00 11/21/24 21:14 10,000 UNIT Lactated Ringer's 1,000 ml @ 60 mls/hr [id number] IV 11/20/24 08:30 11/21/24 13:15 60 MLS/HR Linezolid 300 ml @ 150 mls/hr Q12HR@0800,2000 IV 11/20/24 08:46 11/21/24 19:50 150 MLS/HR Pantoprazole Sodium 40 mg BID@0600,1700 PO 11/20/24 17:00 11/21/24 17:54 40 MG Labetalol HCl 100 mg Q12HR GT 11/20/24 10:00 11/21/24 21:59 100 MG Enoxaparin Sodium 40 mg DAILY SC 11/22/24 10:00 objective Gen.: Patient lying in bed in no apparent distress. On humidified O2 via trach Head: Normocephalic, atraumatic. Eyes: EOMI/PERRLA. Ears: Normal hearing. Normal anatomy. Neck/trachea: Trach in place. Nose: Normal external anatomy. Mouth: Moist mucous membranes. Chest: Decreased air entry bilaterally. No wheezing or rhonchi. Cardiovascular: Positive S1, positive S2. Regular rate and rhythm. Abdomen: Positive bowel sounds in all 4 quadrants. Soft, non-tender, non- distended. : Deferred. Rectal: Deferred. Skin: Warm, dry. Intact. Extremities: 2+ radial pulses bilaterally. No lower extremity edema. Neuro: Awake, alert, oriented x3. No gross motor or sensory deficits. Cranial nerves II through XII intact. Gait not assessed. laboratory and microbiology Laboratory Tests 11/21/24 02:52 Test 11/21/24 02:52 Range/Units Serum Glucose 88 74-106 mg/dL Assessment/Plan Impression: Acute hypoxic respiratory failure Mechanical ventilator PRN S/p tracheostomy Septic shock Perforated viscus s/p repair Nicotine dependence Events: S/p tracheostomy Currently on humidified O2 via tracheostomy, on 8 L at 35% Note, patient was placed on vent for respiratory distress yesterday Remains trached with 8.0 cuffed Shiley Trach collar/T-piece Passy Sam valve once available Trach care per RT. IV fluids with LR at 100 ml/hr. Continue antifungal Complete course of antibiotics Repeat blood cultures showed no growth x72 hours Head of bed elevation Aspiration precautions CXR today reviewed, demonstrates patchy bilateral airspace disease. CT chest, abdomen and pelvis on 10/19/24 revealed right lower lobe consolidation. Small right pleural effusion with pleural thickening. This could represent pneumonia with parapneumonic effusion. Trace left pleural effusion and left lower lobe consolidation. Monitor Hgb Protonix BID for GI ppx GI recs appreciated. Clear liquids Monitor residuals Monitor drain output. Labs and imaging reviewed Plan: S/p tracheostomy, on humidified O2 Titrate to maintain sats above 92% Continue support on vent Place on full vent support if any distress. Trach collar Trach care per RT. Follow up with General Surgery Continue antibiotics and antifungals F/u cultures Bronchodilators Complete abx course Monitor Hgb Protonix BID for GI ppx Monitor renal function Monitor electrolytes Supplement as needed HD per nephrology Nutritional support DVT prophylaxis Prognosis: Guarded given patient's multiple co-morbidities. Rest of plan per hospitalist and other consultants. Thank you, NIDIA Caldera, for allowing me to participate in this patient's care. Further recommendations will depend on the patient's clinical course. Please do not hesitate to contact me if you have any questions or concerns. This medical document was created using an electronic medical record system with [employer] computerized dictation system. Although these documentations are being carefully reviewed, there may still be some phonetic and typographical changes. The errors are purely typographical, due to imperfection on the software program, and do not reflect any compromise in the patient's medical care. Dietary Evaluation Review Comments: 1. Continue TPN to meet at least 75% estimated needs 2. Continue current POC Expected Outcomes/Goals: FU 2-3 days to meet adequate energy & protein within 7 days of NPO Protein Calorie Malnutrition: Severe (rn) Plan discussed with: Other (RN) CC Plasma Assessment Blood Product Administration S: [id number] ARIE LOPEZ MD Nov 21, 2024 23:56
--- NOTE | 2024-11-21 23:59 | DVHPN2 ---
Progress Note - Dictate Date Seen: Nov 21, 2024 Has the PT tested + for MRSA If YES, has PT been informed?: No Medical Necessity Reason Pt with a Central, PICC or Fol: Yes The following are medically ne: Central Line, Gómez Catheter Reason for gómez catheter: Strict I&O Subjective Patient seen and examined at bedside. Remains on humidified O2 via trach. Overnight events reviewed. vital signs Vital Sign Date Time Temp Pulse Resp B/P (MAP) Pulse Ox O2 Delivery O2 Flow Rate FiO2 11/21/24 22:00 77 19 142/65 (90) 98 11/21/24 22:00 T-piece 8 35 35 11/21/24 20:00 98.0 98.0 Total Intake and Output 11/20/24 11/20/24 11/21/24 15:00 23:00 07:00 Intake Total 1220 ml 480 ml 1330 ml Output Total 950 ml 650 ml Balance 1220 ml -470 ml 680 ml medications Current Medications Medications Dose Ordered Sig/Wally Route Start Time Stop Time Status Last Admin Dose Admin Ondansetron HCl 4 mg Q4HP PRN IV 10/04/24 11:45 Morphine Sulfate 2 mg Q4HPRN PRN IV 10/04/24 11:45 Cancel Nitroglycerin 0.4 mg Q5MINP PRN SL 10/04/24 11:45 Morphine Sulfate 2 mg Q30M PRN IV 10/04/24 11:45 Cancel Lorazepam 50 mg/ Sodium Chloride 50 ml @ 1 mls/hr Q24H IV 10/04/24 18:15 Cancel Amino Acids 0 ml @ 0 mls/hr PER PHARMACY IV 10/05/24 14:30 UNV Meropenem 50 ml @ 17 mls/hr Q12HR IV 10/07/24 10:00 UNV Levalbuterol HCl 0.625 mg Q6HR NEB 10/13/24 12:00 11/21/24 18:20 0.625 MG Ipratropium [place] 0.5 mg Q6HR NEB 10/13/24 12:00 11/21/24 18:20 0.5 MG Morphine Sulfate 2 mg Q4HPRN PRN IV 10/21/24 11:30 11/10/24 05:15 2 MG Acetaminophen 650 mg Q6HP PRN GT 10/22/24 09:00 11/10/24 08:08 650 MG Sucralfate 1 gm BID@0600,2200 GT 10/28/24 22:00 11/21/24 21:58 1 GM Pantoprazole Sodium 50 ml @ 0 mls/hr Q0M IV 10/28/24 16:15 Cancel Sodium Chloride 10 ml QSHIFT@10,22 IV 10/31/24 22:00 11/21/24 21:59 10 ML Micafungin Sodium 100 mg/Sodium Chloride 100 ml @ 100 mls/hr DAILY IV 11/02/24 10:00 11/21/24 10:10 100 MLS/HR Acetaminophen/ Hydrocodone Bitart 1 tab Q4HPRN PRN PO 11/06/24 09:15 Lactulose 30 ml DAILY JT 11/11/24 10:00 11/20/24 10:27 30 ML Amlodipine Besylate 10 mg DAILY GT 11/11/24 10:00 11/21/24 10:05 10 MG Labetalol HCl 10 mg Q2HPRN PRN IV 11/12/24 17:00 11/17/24 19:40 10 MG Hydralazine HCl 50 mg Q8HR GT 11/13/24 14:00 11/21/24 21:59 50 MG Clonidine HCl 0.1 mg Q7D TD 11/13/24 07:00 11/20/24 08:12 0.1 MG Metoclopramide HCl 5 mg Q8HR IV 11/13/24 14:00 11/21/24 21:58 5 MG Ertapenem 1 gm/ Sodium Chloride 50 ml @ 100 mls/hr DAILY IV 11/14/24 10:00 11/21/24 10:10 100 MLS/HR Lorazepam 1 mg Q4HP PRN IV 11/14/24 16:15 11/18/24 20:05 1 MG Albuterol 2.5 mg Q3HPRN PRN NEB 11/18/24 10:30 Acetylcysteine 100 mg Q6HR NEB 11/18/24 12:00 11/21/24 18:20 100 MG Iron Sucrose 110 ml @ 110 mls/hr DAILY@1200 IV 11/18/24 12:00 11/22/24 12:59 11/21/24 13:16 110 MLS/HR Epoetin Roger-epbx 10,000 unit MWF@2100 SC 11/19/24 21:00 11/21/24 21:14 10,000 UNIT Lactated Ringer's 1,000 ml @ 60 mls/hr [id number] IV 11/20/24 08:30 11/21/24 13:15 60 MLS/HR Linezolid 300 ml @ 150 mls/hr Q12HR@0800,2000 IV 11/20/24 08:46 11/21/24 19:50 150 MLS/HR Pantoprazole Sodium 40 mg BID@0600,1700 PO 11/20/24 17:00 11/21/24 17:54 40 MG Labetalol HCl 100 mg Q12HR GT 11/20/24 10:00 11/21/24 21:59 100 MG Enoxaparin Sodium 40 mg DAILY SC 11/22/24 10:00 objective Gen.: Patient lying in bed in no apparent distress. On humidified O2 via trach Head: Normocephalic, atraumatic. Eyes: EOMI/PERRLA. Ears: Normal hearing. Normal anatomy. Neck/trachea: Trach in place. Nose: Normal external anatomy. Mouth: Moist mucous membranes. Chest: Decreased air entry bilaterally. No wheezing or rhonchi. Cardiovascular: Positive S1, positive S2. Regular rate and rhythm. Abdomen: Positive bowel sounds in all 4 quadrants. Soft, non-tender, non- distended. : Deferred. Rectal: Deferred. Skin: Warm, dry. Intact. Extremities: 2+ radial pulses bilaterally. No lower extremity edema. Neuro: Awake, alert, oriented x3. No gross motor or sensory deficits. Cranial nerves II through XII intact. Gait not assessed. laboratory and microbiology Laboratory Tests 11/21/24 02:52 Test 11/21/24 02:52 Range/Units Serum Glucose 88 74-106 mg/dL Assessment/Plan Impression: Acute hypoxic respiratory failure Mechanical ventilator PRN S/p tracheostomy Septic shock Perforated viscus s/p repair Nicotine dependence Events: S/p tracheostomy - 8.0 cuffed Shiley Trach Trach collar/T-piece Remains on humidified O2 via trach, on 8 L at 35% Passy Sam valve. Trach care per RT. IV fluids with LR at 60 ml/hr. Continue bronchodilators/Mucomyst Continue antifungal Complete course of antibiotics WBC within normal limits Follow up sputum cultures Follow up blood cultures - repeat cultures showed no growth for 24 hours Head of bed elevation Aspiration precautions Monitor hemoglobin, trending down Transfuse if less than 7.0 g/dL. Iron supplementation Protonix BID for GI ppx Sucralfate Lovenox for DVT ppx Monitor renal function Monitor electrolytes Supplement as needed Potassium supplementation Check magnesium level Clear liquids Monitor residuals Monitor drain output. Chest/abdomen x-ray reveals Dobbhoff in the distal stomach/proximal duodenum. Labs and imaging reviewed Plan: S/p tracheostomy, on humidified O2 Titrate to maintain sats above 92% Continue support on vent Place on full vent support if any distress. Trach collar Trach care per RT. Follow up with General Surgery Continue antibiotics and antifungals F/u cultures Bronchodilators Complete abx course Monitor Hgb Protonix BID for GI ppx Monitor renal function Monitor electrolytes Supplement as needed HD per nephrology Nutritional support DVT prophylaxis Prognosis: Guarded given patient's multiple co-morbidities. Rest of plan per hospitalist and other consultants. Thank you, RAISED PRINTER Werner, for allowing me to participate in this patient's care. Further recommendations will depend on the patient's clinical course. Please do not hesitate to contact me if you have any questions or concerns. This medical document was created using an electronic medical record system with [employer] computerized dictation system. Although these documentations are being carefully reviewed, there may still be some phonetic and typographical changes. The errors are purely typographical, due to imperfection on the software program, and do not reflect any compromise in the patient's medical care. Dietary Evaluation Review Comments: 1. Continue TPN to meet at least 75% estimated needs 2. Continue current POC Expected Outcomes/Goals: FU 2-3 days to meet adequate energy & protein within 7 days of NPO Protein Calorie Malnutrition: Severe (rn) Plan discussed with: Patient, Other (JASPER Heaton) CC Plasma Assessment Blood Product Administration S: [id number] ARIE LOPEZ MD Nov 21, 2024 23:59
[2024-11-22] VITALS (78 sets, daily range): BP systolic 103–149; BP diastolic 48–76; PULSE 61–92; RESP 14–25; TEMP 97.8–98.6; O2SAT 86–100
[2024-11-22 04:12] LABS: Anion Gap 10 (5-15); Carbon Dioxide 23 mmol/L (20-31); Chloride 104 mmol/L (98-107); Sodium 137 mmol/L (136-145)
[2024-11-22 04:18] LABS: BUN/Creatinine Ratio 10.1 (10.0-20.0); Blood Urea Nitrogen 11 mg/dL (9-23); Glucose 78 mg/dL (74-106)
[2024-11-22 04:28] LABS: Hematocrit 25.1 % (41.0-53.0); Hemoglobin 8.2 g/dL (13.5-17.5); Mean Corpuscular Hemoglobin 27.9 pg (28.0-32.0); Mean Corpuscular Volume 85.5 fL (80.0-100.0); Nucleated Red Blood Cells % 0.0 %
[2024-11-22 04:29] LABS: Calcium 8.1 mg/dL (8.7-10.4); Potassium 3.2 mmol/L (3.5-5.1)
[2024-11-22] MEDS: POTASSIUM CHL 20MEQ/100ML 100 ML IV SCH (06:57)
[2024-11-22] MEDS: ENOXAPARIN SOD 40 MG/0.4 ML SYRINGE SC SCH (09:58)
--- NOTE | 2024-11-22 12:46 | DVHPN2 ---
Subjective Patient is alert following commands. Denies any symptoms. Reviewed: Care Plan, H&P, Labs, Medications, Previous Orders, Radiology, Other (Consultants) Changes from previous H/P or p: No Changes General: Per HPI Objective Vitals Vital Signs Date Time Temp Pulse Resp B/P (MAP) Pulse Ox O2 Delivery O2 Flow Rate FiO2 11/22/24 11:39 92 25 99 11/22/24 11:33 T-piece 10 35 Cool Aerosol 35 11/22/24 10:59 119/52 11/22/24 04:00 97.9 97.9 Intake/Output Intake and Output 11/22/24 07:00 Intake Total 3025 ml Output Total 1650 ml Balance 1375 ml Intake Oral 885 ml IV Total 2140 ml Output Urine Total 850 ml Drainage Total 800 ml # Bowel Movements 2 General Appearance: Alert, Oriented X3, Cooperative, mild distress, Other HEENT: Atraumatic, PERRLA Lungs: Clear to auscultation, Normal air movement, Other Cardiovascular: Normal S1, Normal S2, Other Abdomen: Other Extremities: Normal pulses Neuro: Cranial nerves 3-12 NL, Other Skin: Dry, Intact, Wounds, Other Psych/Mental Status: Other Medications Current Medications Medications Dose Ordered Sig/Wally Route Start Time Stop Time Status Last Admin Dose Admin Ondansetron HCl 4 mg Q4HP PRN IV 10/04/24 11:45 Morphine Sulfate 2 mg Q4HPRN PRN IV 10/04/24 11:45 Cancel Nitroglycerin 0.4 mg Q5MINP PRN SL 10/04/24 11:45 Morphine Sulfate 2 mg Q30M PRN IV 10/04/24 11:45 Cancel Lorazepam 50 mg/ Sodium Chloride 50 ml @ 1 mls/hr Q24H IV 10/04/24 18:15 Cancel Amino Acids 0 ml @ 0 mls/hr PER PHARMACY IV 10/05/24 14:30 UNV Meropenem 50 ml @ 17 mls/hr Q12HR IV 10/07/24 10:00 UNV Levalbuterol HCl 0.625 mg Q6HR NEB 10/13/24 12:00 11/22/24 11:33 0.625 MG Ipratropium [place] 0.5 mg Q6HR NEB 10/13/24 12:00 11/22/24 11:33 0.5 MG Morphine Sulfate 2 mg Q4HPRN PRN IV 10/21/24 11:30 11/10/24 05:15 2 MG Acetaminophen 650 mg Q6HP PRN GT 10/22/24 09:00 11/10/24 08:08 650 MG Sucralfate 1 gm BID@0600,2200 GT 10/28/24 22:00 11/22/24 05:59 1 GM Pantoprazole Sodium 50 ml @ 0 mls/hr Q0M IV 10/28/24 16:15 Cancel Sodium Chloride 10 ml QSHIFT@10,22 IV 10/31/24 22:00 11/22/24 10:10 10 ML Micafungin Sodium 100 mg/Sodium Chloride 100 ml @ 100 mls/hr DAILY IV 11/02/24 10:00 11/22/24 10:02 100 MLS/HR Acetaminophen/ Hydrocodone Bitart 1 tab Q4HPRN PRN PO 11/06/24 09:15 Lactulose 30 ml DAILY JT 11/11/24 10:00 11/20/24 10:27 30 ML Amlodipine Besylate 10 mg DAILY GT 11/11/24 10:00 11/22/24 09:59 10 MG Labetalol HCl 10 mg Q2HPRN PRN IV 11/12/24 17:00 11/17/24 19:40 10 MG Hydralazine HCl 50 mg Q8HR GT 11/13/24 14:00 11/22/24 05:59 50 MG Clonidine HCl 0.1 mg Q7D TD 11/13/24 07:00 11/20/24 08:12 0.1 MG Metoclopramide HCl 5 mg Q8HR IV 11/13/24 14:00 11/22/24 06:00 5 MG Ertapenem 1 gm/ Sodium Chloride 50 ml @ 100 mls/hr DAILY IV 11/14/24 10:00 11/22/24 10:07 100 MLS/HR Lorazepam 1 mg Q4HP PRN IV 11/14/24 16:15 11/18/24 20:05 1 MG Albuterol 2.5 mg Q3HPRN PRN NEB 11/18/24 10:30 Acetylcysteine 100 mg Q6HR NEB 11/18/24 12:00 11/22/24 11:33 100 MG Iron Sucrose 110 ml @ 110 mls/hr DAILY@1200 IV 11/18/24 12:00 11/22/24 12:59 11/21/24 13:16 110 MLS/HR Epoetin Roger-epbx 10,000 unit MWF@2100 SC 11/19/24 21:00 11/21/24 21:14 10,000 UNIT Lactated Ringer's 1,000 ml @ 60 mls/hr [id number] IV 11/20/24 08:30 11/22/24 10:30 60 MLS/HR Linezolid 300 ml @ 150 mls/hr Q12HR@0800,2000 IV 11/20/24 08:46 11/22/24 08:34 150 MLS/HR Pantoprazole Sodium 40 mg BID@0600,1700 PO 11/20/24 17:00 11/21/24 17:54 40 MG Labetalol HCl 100 mg Q12HR GT 11/20/24 10:00 11/22/24 09:59 100 MG Enoxaparin Sodium 40 mg DAILY SC 11/22/24 10:00 11/22/24 09:58 40 MG Enteral Nutritional Formula 1,000 ml 60ML/HR GT 11/22/24 11:00 Laboratory Results Laboratory Tests 11/22/24 02:48 Chemistry Test 11/22/24 02:48 Calcium Level 8.1 mg/dL (8.7-10.4) L Urinalysis Test 10/05/24 15:05 10/26/24 20:33 11/07/24 12:40 Urine Mucus Few (None Seen) Urine Color Light-yellow (Yellow) Urine Clarity Clear (Clear) Urine pH 7.0 (5.0-9.0) Urine Specific [place] 1.014 (1.001-1.035) Urine Protein 1+ (Negative) H Urine Ketones Negative (Negative) Urine Blood 1+ /uL (Negative) H Urine Nitrite Negative (Negative) Urine Bilirubin Negative (Negative) Urine Urobilinogen Normal mg/dL (Negative) Urine Leukocyte Esterase Negative /uL (Negative) Urine RBC 1 /hpf (0 - 3) Urine Microscopic WBC 3 /HPF (0-3) Urine Squamous Epithelial Cells None seen /hpf (<5) Urine Bacteria Few /hpf (None Seen) H Urine Glucose Normal mg/dL (Normal) Urine Creatinine 64.63 mg/dL (30.0-125.0) Urine Protein/Creatinine Ratio 3.11 Urine Sodium 34 mmol/L (40-220) L Urine Total Protein 200.7 mg/dL (1-14) H Microbiology Microbiology Date/Time Source Procedure Growth Status 11/20/24 09:56 Sputum Gram Stain - Final Resulted 11/20/24 09:56 Sputum Respiratory Culture - Preliminary Resulted 11/20/24 08:16 Blood Blood Culture - Preliminary NO GROWTH AFTER 48 HOURS OF INCUBATION. Resulted 11/10/24 22:44 Voided Urine Urine Culture - Final Complete 10/18/24 09:21 Pleural Fluid Gram Stain - Final Complete 10/18/24 09:21 Pleural Fluid Body Fluid Culture - Final Complete 10/04/24 17:10 Nose MRSA Screen - Final Complete Labs and/or images reviewed: Labs reviewed by me, Image(s) reviewed by me Assessment/Plan Assessment/Plan 11/21 patient has been in the hospital for a prolonged stay. He has history of CVA he is close to quadriplegic but has some hand movement. Patient remains on broad spectrum antibiotics ertapenem micafungin and Zyvox. Patient had pneumoperitoneum currently has a biliary drain with light brown output. Currently on no vasopressors. Receiving fluids 60 cc/hour. She is having diarrhea. We will start some feeds as patient is not on any kind of parenteral or enteral feeds. Start clear liquid diet through Dobbhoff. Patient's Dobbhoff was placed through help of IR yesterday. Resume rest of care per primary team plan. 11/22- patient doing well with abdominal tube feeds. Changing to Vital AF feeds per dietitian recommendations at rate of 60. Continue IV antibiotics ertapenem micafungin Zyvox. Biliary drain output is decreasing. Diarrhea is improving. Resume care for close monitoring in D OU status Impression: -severe septic shock -pneumoperitoneum secondary to perforated gastric ulcer -acute kidney injury, hemodynamically mediated, probable VMN -acute hypoxic respiratory failure -shock liver -nicotine dependence -history of CVA -right upper extremity DVT -multifocal pneumonia, probable Gram-positive/Gram-negative etiology -anemia secondary to nutrition, renal failure -bilateral pleural effusions -small left pneumothorax -Failure of ventilator weaning, status post tracheostomy -fungemia Plan: -continue current antihypertensives -GI consultation: Discussed case. -antibiotic therapy: Invanz, micafungin, add Zyvox to cover for VAP -nephrology consultation: Daily assessment for hemodialysis -physical therapy Critical care time spent with patient discussing and formulating plan of care: 40 minutes. This does not include time spent performing procedures. Plan discussed with: Patient My Orders Orders - ELVIN WHATLEY MD Procedure Category Date Status Time Nutritional PHA 11/22/24 In Process Supplements (Vital Af 11:00 Date of Service: Nov 22, 2024 Billing Provider: ELVIN WHATLEY MD Common Visit Codes: [id number] CARE 30-74 MIN ELVIN WHATLEY MD Nov 22, 2024 12:46
--- NOTE | 2024-11-22 22:25 | DVHPN2 ---
Progress Note - Dictate Date Seen: Nov 22, 2024 Has the PT tested + for MRSA If YES, has PT been informed?: No Medical Necessity Reason Pt with a Central, PICC or Fol: Yes The following are medically ne: Central Line, Gómez Catheter Reason for gómez catheter: Strict I&O Subjective Patient seen and examined at bedside. Remains on humidified O2 via trach. Overnight events reviewed. vital signs Vital Sign Date Time Temp Pulse Resp B/P (MAP) Pulse Ox O2 Delivery O2 Flow Rate FiO2 11/22/24 21:35 81 124/61 11/22/24 21:00 17 99 11/22/24 20:00 T-piece 8 35 35 11/22/24 16:00 98.6 98.6 Total Intake and Output 11/21/24 11/21/24 11/22/24 15:00 23:00 07:00 Intake Total 1040 ml 900 ml 1145 ml Output Total 950 ml 700 ml Balance 1040 ml -50 ml 445 ml medications Current Medications Medications Dose Ordered Sig/Wally Route Start Time Stop Time Status Last Admin Dose Admin Ondansetron HCl 4 mg Q4HP PRN IV 10/04/24 11:45 Morphine Sulfate 2 mg Q4HPRN PRN IV 10/04/24 11:45 Cancel Nitroglycerin 0.4 mg Q5MINP PRN SL 10/04/24 11:45 Morphine Sulfate 2 mg Q30M PRN IV 10/04/24 11:45 Cancel Lorazepam 50 mg/ Sodium Chloride 50 ml @ 1 mls/hr Q24H IV 10/04/24 18:15 Cancel Amino Acids 0 ml @ 0 mls/hr PER PHARMACY IV 10/05/24 14:30 UNV Meropenem 50 ml @ 17 mls/hr Q12HR IV 10/07/24 10:00 UNV Levalbuterol HCl 0.625 mg Q6HR NEB 10/13/24 12:00 11/22/24 18:52 0.625 MG Ipratropium [place] 0.5 mg Q6HR NEB 10/13/24 12:00 11/22/24 18:52 0.5 MG Morphine Sulfate 2 mg Q4HPRN PRN IV 10/21/24 11:30 11/10/24 05:15 2 MG Acetaminophen 650 mg Q6HP PRN GT 10/22/24 09:00 11/10/24 08:08 650 MG Sucralfate 1 gm BID@0600,2200 GT 10/28/24 22:00 11/22/24 21:36 1 GM Pantoprazole Sodium 50 ml @ 0 mls/hr Q0M IV 10/28/24 16:15 Cancel Sodium Chloride 10 ml QSHIFT@10,22 IV 10/31/24 22:00 11/22/24 21:37 10 ML Micafungin Sodium 100 mg/Sodium Chloride 100 ml @ 100 mls/hr DAILY IV 11/02/24 10:00 11/22/24 10:02 100 MLS/HR Acetaminophen/ Hydrocodone Bitart 1 tab Q4HPRN PRN PO 11/06/24 09:15 Lactulose 30 ml DAILY JT 11/11/24 10:00 11/20/24 10:27 30 ML Amlodipine Besylate 10 mg DAILY GT 11/11/24 10:00 11/22/24 09:59 10 MG Labetalol HCl 10 mg Q2HPRN PRN IV 11/12/24 17:00 11/17/24 19:40 10 MG Hydralazine HCl 50 mg Q8HR GT 11/13/24 14:00 11/22/24 13:14 50 MG Clonidine HCl 0.1 mg Q7D TD 11/13/24 07:00 11/20/24 08:12 0.1 MG Metoclopramide HCl 5 mg Q8HR IV 11/13/24 14:00 11/22/24 21:36 5 MG Ertapenem 1 gm/ Sodium Chloride 50 ml @ 100 mls/hr DAILY IV 11/14/24 10:00 11/22/24 10:07 100 MLS/HR Lorazepam 1 mg Q4HP PRN IV 11/14/24 16:15 11/18/24 20:05 1 MG Albuterol 2.5 mg Q3HPRN PRN NEB 11/18/24 10:30 Acetylcysteine 100 mg Q6HR NEB 11/18/24 12:00 11/22/24 18:52 100 MG Epoetin Roger-epbx 10,000 unit MWF@2100 SC 11/19/24 21:00 11/21/24 21:14 10,000 UNIT Lactated Ringer's 1,000 ml @ 60 mls/hr [id number] IV 11/20/24 08:30 11/22/24 10:30 60 MLS/HR Linezolid 300 ml @ 150 mls/hr Q12HR@0800,2000 IV 11/20/24 08:46 11/22/24 20:43 150 MLS/HR Pantoprazole Sodium 40 mg BID@0600,1700 PO 11/20/24 17:00 11/22/24 18:46 40 MG Labetalol HCl 100 mg Q12HR GT 11/20/24 10:00 11/22/24 21:35 100 MG Enoxaparin Sodium 40 mg DAILY SC 11/22/24 10:00 11/22/24 09:58 40 MG Enteral Nutritional Formula 1,000 ml 60ML/HR GT 11/22/24 11:00 objective Gen.: Patient lying in bed in no apparent distress. On humidified O2 via trach Head: Normocephalic, atraumatic. Eyes: EOMI/PERRLA. Ears: Normal hearing. Normal anatomy. Neck/trachea: Trach in place. Nose: Normal external anatomy. Mouth: Moist mucous membranes. Chest: Decreased air entry bilaterally. No wheezing or rhonchi. Cardiovascular: Positive S1, positive S2. Regular rate and rhythm. Abdomen: Positive bowel sounds in all 4 quadrants. Soft, non-tender, non- distended. : Deferred. Rectal: Deferred. Skin: Warm, dry. Intact. Extremities: 2+ radial pulses bilaterally. No lower extremity edema. Neuro: Awake, alert, oriented x3. No gross motor or sensory deficits. Cranial nerves II through XII intact. Gait not assessed. laboratory and microbiology Laboratory Tests 11/22/24 02:48 Test 11/22/24 02:48 Range/Units Serum Glucose 78 74-106 mg/dL Assessment/Plan Impression: Acute hypoxic respiratory failure Mechanical ventilator PRN S/p tracheostomy Septic shock Perforated viscus s/p repair Nicotine dependence Events: S/p tracheostomy - 8.0 cuffed Shiley Trach Trach collar/T-piece Remains on humidified O2 via trach, on 8 L at 35% Trach care per RT. IV fluids with LR at 60 ml/hr. Continue bronchodilators/Mucomyst Continue antifungal Complete course of antibiotics WBC within normal limits Sputum cultures show no growth Repeat cultures showed no growth for 48 hours Head of bed elevation Aspiration precautions Monitor hemoglobin, trending up at 8.2 g/dL Transfuse if less than 7.0 g/dL. Iron supplementation Protonix BID for GI ppx Sucralfate Lovenox for DVT ppx Monitor renal function Monitor electrolytes Supplement as needed Potassium, magnesium supplementation Tube feeds for nutritional support Monitor drain output. Chest/abdomen x-ray reveals Dobbhoff in the distal stomach/proximal duodenum. Labs and imaging reviewed Plan: S/p tracheostomy, on humidified O2 Titrate to maintain sats above 92% Continue support on vent Place on full vent support if any distress. Trach collar Trach care per RT. Follow up with General Surgery Continue antibiotics and antifungals F/u cultures Bronchodilators Complete abx course Monitor Hgb Protonix BID for GI ppx Monitor renal function Monitor electrolytes Supplement as needed HD per nephrology Nutritional support DVT prophylaxis Prognosis: Guarded given patient's multiple co-morbidities. Rest of plan per hospitalist and other consultants. Thank you, NIDIA Caldera, for allowing me to participate in this patient's care. Further recommendations will depend on the patient's clinical course. Please do not hesitate to contact me if you have any questions or concerns. This medical document was created using an electronic medical record system with [employer] computerized dictation system. Although these documentations are being carefully reviewed, there may still be some phonetic and typographical changes. The errors are purely typographical, due to imperfection on the software program, and do not reflect any compromise in the patient's medical care. Dietary Evaluation Review Comments: 1. Continue TPN to meet at least 75% estimated needs 2. Continue current POC Expected Outcomes/Goals: FU 2-3 days to meet adequate energy & protein within 7 days of NPO Protein Calorie Malnutrition: Severe (rn) Plan discussed with: Patient, Other (JASPER Heaton) CC Plasma Assessment Blood Product Administration S: [id number] ARIE LOPEZ MD Nov 22, 2024 22:25
[2024-11-23] VITALS (55 sets, daily range): BP systolic 113–172; BP diastolic 47–82; PULSE 64–99; RESP 14–28; TEMP 97–98; O2SAT 94–100
--- NOTE | 2024-11-23 09:20 | DVHPN2 ---
Subjective Patient is alert following commands. Denies any symptoms. Reviewed: Care Plan, H&P, Labs, Medications, Previous Orders, Radiology, Other (Consultants) Changes from previous H/P or p: No Changes General: Per HPI Objective Vitals Vital Signs Date Time Temp Pulse Resp B/P (MAP) Pulse Ox O2 Delivery O2 Flow Rate FiO2 11/23/24 09:08 124/76 11/23/24 09:00 86 14 99 11/23/24 08:25 T-piece 6 28 28 11/23/24 08:00 97.7 97.7 Intake/Output Intake and Output 11/23/24 07:00 Intake Total 2310 ml Output Total 2000 ml Balance 310 ml Intake Oral 160 ml IV Total 1890 ml Tube Feeding 260 ml Output Urine Total 1700 ml Drainage Total 300 ml General Appearance: Alert, Oriented X3, Cooperative, mild distress, Other HEENT: Atraumatic, PERRLA Lungs: Clear to auscultation, Normal air movement, Other Cardiovascular: Normal S1, Normal S2, Other Abdomen: Other Extremities: Normal pulses Neuro: Cranial nerves 3-12 NL, Other Skin: Dry, Intact, Wounds, Other Psych/Mental Status: Other Medications Current Medications Medications Dose Ordered Sig/Wally Route Start Time Stop Time Status Last Admin Dose Admin Ondansetron HCl 4 mg Q4HP PRN IV 10/04/24 11:45 Morphine Sulfate 2 mg Q4HPRN PRN IV 10/04/24 11:45 Cancel Nitroglycerin 0.4 mg Q5MINP PRN SL 10/04/24 11:45 Morphine Sulfate 2 mg Q30M PRN IV 10/04/24 11:45 Cancel Lorazepam 50 mg/ Sodium Chloride 50 ml @ 1 mls/hr Q24H IV 10/04/24 18:15 Cancel Amino Acids 0 ml @ 0 mls/hr PER PHARMACY IV 10/05/24 14:30 UNV Meropenem 50 ml @ 17 mls/hr Q12HR IV 10/07/24 10:00 UNV Levalbuterol HCl 0.625 mg Q6HR NEB 10/13/24 12:00 11/23/24 06:48 0.625 MG Ipratropium [place] 0.5 mg Q6HR NEB 10/13/24 12:00 11/23/24 06:48 0.5 MG Morphine Sulfate 2 mg Q4HPRN PRN IV 10/21/24 11:30 11/10/24 05:15 2 MG Acetaminophen 650 mg Q6HP PRN GT 10/22/24 09:00 11/10/24 08:08 650 MG Sucralfate 1 gm BID@0600,2200 GT 10/28/24 22:00 11/23/24 06:00 1 GM Pantoprazole Sodium 50 ml @ 0 mls/hr Q0M IV 10/28/24 16:15 Cancel Sodium Chloride 10 ml QSHIFT@10,22 IV 10/31/24 22:00 11/23/24 08:03 10 ML Micafungin Sodium 100 mg/Sodium Chloride 100 ml @ 100 mls/hr DAILY IV 11/02/24 10:00 11/23/24 08:03 100 MLS/HR Acetaminophen/ Hydrocodone Bitart 1 tab Q4HPRN PRN PO 11/06/24 09:15 Lactulose 30 ml DAILY JT 11/11/24 10:00 11/23/24 08:04 30 ML Amlodipine Besylate 10 mg DAILY GT 11/11/24 10:00 11/23/24 08:08 10 MG Labetalol HCl 10 mg Q2HPRN PRN IV 11/12/24 17:00 11/17/24 19:40 10 MG Hydralazine HCl 50 mg Q8HR GT 11/13/24 14:00 11/23/24 06:01 50 MG Clonidine HCl 0.1 mg Q7D TD 11/13/24 07:00 11/20/24 08:12 0.1 MG Metoclopramide HCl 5 mg Q8HR IV 11/13/24 14:00 11/23/24 06:01 5 MG Ertapenem 1 gm/ Sodium Chloride 50 ml @ 100 mls/hr DAILY IV 11/14/24 10:00 11/23/24 07:58 100 MLS/HR Lorazepam 1 mg Q4HP PRN IV 11/14/24 16:15 11/18/24 20:05 1 MG Albuterol 2.5 mg Q3HPRN PRN NEB 11/18/24 10:30 Acetylcysteine 100 mg Q6HR NEB 11/18/24 12:00 11/23/24 06:48 100 MG Epoetin Roger-epbx 10,000 unit MWF@2100 SC 11/19/24 21:00 11/21/24 21:14 10,000 UNIT Lactated Ringer's 1,000 ml @ 60 mls/hr [id number] IV 11/20/24 08:30 11/23/24 03:10 60 MLS/HR Linezolid 300 ml @ 150 mls/hr Q12HR@0800,2000 IV 11/20/24 08:46 11/23/24 08:04 150 MLS/HR Pantoprazole Sodium 40 mg BID@0600,1700 PO 11/20/24 17:00 11/23/24 06:00 40 MG Labetalol HCl 100 mg Q12HR GT 11/20/24 10:00 11/23/24 08:08 100 MG Enoxaparin Sodium 40 mg DAILY SC 11/22/24 10:00 11/23/24 08:04 40 MG Enteral Nutritional Formula 1,000 ml 60ML/HR GT 11/22/24 11:00 Laboratory Results Laboratory Tests 11/22/24 02:48 Urinalysis Test 10/05/24 15:05 10/26/24 20:33 11/07/24 12:40 Urine Mucus Few (None Seen) Urine Color Light-yellow (Yellow) Urine Clarity Clear (Clear) Urine pH 7.0 (5.0-9.0) Urine Specific [place] 1.014 (1.001-1.035) Urine Protein 1+ (Negative) H Urine Ketones Negative (Negative) Urine Blood 1+ /uL (Negative) H Urine Nitrite Negative (Negative) Urine Bilirubin Negative (Negative) Urine Urobilinogen Normal mg/dL (Negative) Urine Leukocyte Esterase Negative /uL (Negative) Urine RBC 1 /hpf (0 - 3) Urine Microscopic WBC 3 /HPF (0-3) Urine Squamous Epithelial Cells None seen /hpf (<5) Urine Bacteria Few /hpf (None Seen) H Urine Glucose Normal mg/dL (Normal) Urine Creatinine 64.63 mg/dL (30.0-125.0) Urine Protein/Creatinine Ratio 3.11 Urine Sodium 34 mmol/L (40-220) L Urine Total Protein 200.7 mg/dL (1-14) H Microbiology Microbiology Date/Time Source Procedure Growth Status 11/20/24 09:56 Sputum Gram Stain - Final Resulted 11/20/24 09:56 Sputum Respiratory Culture - Preliminary Resulted 11/20/24 08:16 Blood Blood Culture - Preliminary NO GROWTH AFTER 72 HOURS OF INCUBATION. Resulted 11/10/24 22:44 Voided Urine Urine Culture - Final Complete 10/18/24 09:21 Pleural Fluid Gram Stain - Final Complete 10/18/24 09:21 Pleural Fluid Body Fluid Culture - Final Complete 10/04/24 17:10 Nose MRSA Screen - Final Complete Labs and/or images reviewed: Labs reviewed by me, Image(s) reviewed by me Assessment/Plan Assessment/Plan 11/21 patient has been in the hospital for a prolonged stay. He has history of CVA he is close to quadriplegic but has some hand movement. Patient remains on broad spectrum antibiotics ertapenem micafungin and Zyvox. Patient had pneumoperitoneum currently has a biliary drain with light brown output. Currently on no vasopressors. Receiving fluids 60 cc/hour. She is having diarrhea. We will start some feeds as patient is not on any kind of parenteral or enteral feeds. Start clear liquid diet through [place]. Patient's [place] was placed through help of IR yesterday. Resume rest of care per primary team plan. 11/22- patient doing well with abdominal tube feeds. Changing to Vital AF feeds per dietitian recommendations at rate of 60. Continue IV antibiotics ertapenem micafungin Zyvox. Biliary drain output is decreasing. Diarrhea is improving. Resume care for close monitoring in D OU status 11/23-trach collar room air trial this a.m.. Strength is improving able to raise hands of the bed. PT working with patient. staffing consultant need patient in the ICU for close monitoring for airway and trach. Patient is still having secretions from the trach. If able to wean off oxygen for trach down to 3 L we will be able to deescalate to tele. Hypokalemia. We will replete and we will also check Mag and replete if needed. Otherwise continue primary team's management plan. Impression: -severe septic shock -pneumoperitoneum secondary to perforated gastric ulcer -acute kidney injury, hemodynamically mediated, probable VMN -acute hypoxic respiratory failure -shock liver -nicotine dependence -history of CVA -right upper extremity DVT -multifocal pneumonia, probable Gram-positive/Gram-negative etiology -anemia secondary to nutrition, renal failure -bilateral pleural effusions -small left pneumothorax -Failure of ventilator weaning, status post tracheostomy -fungemia Plan: -continue current antihypertensives -GI consultation: Discussed case. -antibiotic therapy: Invanz, micafungin, add Zyvox to cover for VAP -nephrology consultation: Daily assessment for hemodialysis -physical therapy Critical care time spent with patient discussing and formulating plan of care: 40 minutes. This does not include time spent performing procedures. Plan discussed with: Patient My Orders Orders - ELVIN WHATLEY MD Procedure Category Date Status Time Nutritional PHA 11/22/24 In Process Supplements (Vital Af 11:00 Magnesium LAB 11/23/24 Logged 07:26 Complete Blood Count LAB 11/23/24 Logged 07:27 Date of Service: Nov 23, 2024 Billing Provider: ELVIN WHATLEY MD Common Visit Codes: [id number] CARE 30-74 MIN ELVIN WHATLEY MD Nov 23, 2024 09:20
[2024-11-23 09:25] LABS: Hematocrit 27.1 % (41.0-53.0); Hemoglobin 8.7 g/dL (13.5-17.5); Mean Corpuscular Hemoglobin 27.6 pg (28.0-32.0); Mean Corpuscular Volume 85.9 fL (80.0-100.0); Nucleated Red Blood Cells % 0.1 %
[2024-11-23] MEDS: MAGNESIUM SULFATE 1GM/100ML 100 ML IV ONE (09:50)
[2024-11-23] MEDS: POTASSIUM EFFERVESENT TAB 25 MEQ GT ONE (09:50)
--- NOTE | 2024-11-23 10:24 | MEDREC ---
[facility] Intervention Section I [facility] Intervention: Deescalate AB based on CS (10 DAYS ON ERTAPENEM LEUKOCYTOSIS RESOLVED, AFEBRILE - PLEASE CONSIDER DE-ESCALATING ERTAPENEM) CESAR JANG PHARMACIST Nov 23, 2024 10:24
--- NOTE | 2024-11-23 10:44 | DVH ---
Exam: XY KUB ABDOMEN SINGLE VIEW Indication: DOBB CAROLE PLACEMENT Comparison: XY KUB ABDOMEN SINGLE VIEW on DOS: 11/21/24, XY KUB ABDOMEN SINGLE VIEW on DOS: 11/19/24, XY KUB ABDOMEN SINGLE VIEW on DOS: 11/19/24, XY KUB ABDOMEN SINGLE VIEW on DOS: 10/31/24, XY KUB ABDOMEN SI NGLE VIEW on DOS: 10/29/24 Technique: 1 radiographic views of the abdomen. Findings: Enteric catheter overlies the gastric antrum. Nonobstructive bowel gas pattern noted. There is no definite evidence for pneumoperitoneum. No abnormal calcifications noted. Impression: Enteric catheter overlies the gastric antrum.
--- NOTE | 2024-11-23 21:29 | DVHPN2 ---
Consult Progress Note Date Seen: Nov 15, 2024 Subjective Patient reports: Other (tolerating antibiotics . has about 290ccs of gastric tube drainage ) Objective vital signs Vital Sign Date Time Temp Pulse Resp B/P (MAP) Pulse Ox O2 Delivery O2 Flow Rate FiO2 11/23/24 20:00 98.0 90 22 143/70 (94) 94 98.0 11/23/24 18:33 Room Air 0.0 11/23/24 18:33 21 Total Intake and Output 11/22/24 11/22/24 11/23/24 15:00 23:00 07:00 Intake Total 930 ml 690 ml 690 ml Output Total 1250 ml 750 ml Balance 930 ml -560 ml -60 ml medications Current Medications Medications Dose Ordered Sig/Wally Route Start Time Stop Time Status Last Admin Dose Admin Ondansetron HCl 4 mg Q4HP PRN IV 10/04/24 11:45 Morphine Sulfate 2 mg Q4HPRN PRN IV 10/04/24 11:45 Cancel Nitroglycerin 0.4 mg Q5MINP PRN SL 10/04/24 11:45 Morphine Sulfate 2 mg Q30M PRN IV 10/04/24 11:45 Cancel Lorazepam 50 mg/ Sodium Chloride 50 ml @ 1 mls/hr Q24H IV 10/04/24 18:15 Cancel Amino Acids 0 ml @ 0 mls/hr PER PHARMACY IV 10/05/24 14:30 UNV Meropenem 50 ml @ 17 mls/hr Q12HR IV 10/07/24 10:00 UNV Levalbuterol HCl 0.625 mg Q6HR NEB 10/13/24 12:00 11/23/24 18:33 0.625 MG Ipratropium [place] 0.5 mg Q6HR NEB 10/13/24 12:00 11/23/24 18:34 0.5 MG Morphine Sulfate 2 mg Q4HPRN PRN IV 10/21/24 11:30 11/10/24 05:15 2 MG Acetaminophen 650 mg Q6HP PRN GT 10/22/24 09:00 11/10/24 08:08 650 MG Sucralfate 1 gm BID@0600,2200 GT 10/28/24 22:00 11/23/24 06:00 1 GM Pantoprazole Sodium 50 ml @ 0 mls/hr Q0M IV 10/28/24 16:15 Cancel Sodium Chloride 10 ml QSHIFT@10,22 IV 10/31/24 22:00 11/23/24 08:03 10 ML Micafungin Sodium 100 mg/Sodium Chloride 100 ml @ 100 mls/hr DAILY IV 11/02/24 10:00 11/23/24 08:03 100 MLS/HR Acetaminophen/ Hydrocodone Bitart 1 tab Q4HPRN PRN PO 11/06/24 09:15 Lactulose 30 ml DAILY JT 11/11/24 10:00 11/23/24 08:04 30 ML Amlodipine Besylate 10 mg DAILY GT 11/11/24 10:00 11/23/24 08:08 10 MG Labetalol HCl 10 mg Q2HPRN PRN IV 11/12/24 17:00 11/17/24 19:40 10 MG Hydralazine HCl 50 mg Q8HR GT 11/13/24 14:00 11/23/24 15:02 50 MG Clonidine HCl 0.1 mg Q7D TD 11/13/24 07:00 11/20/24 08:12 0.1 MG Metoclopramide HCl 5 mg Q8HR IV 11/13/24 14:00 11/23/24 15:02 5 MG Ertapenem 1 gm/ Sodium Chloride 50 ml @ 100 mls/hr DAILY IV 11/14/24 10:00 11/23/24 07:58 100 MLS/HR Lorazepam 1 mg Q4HP PRN IV 11/14/24 16:15 11/18/24 20:05 1 MG Albuterol 2.5 mg Q3HPRN PRN NEB 11/18/24 10:30 Acetylcysteine 100 mg Q6HR NEB 11/18/24 12:00 11/23/24 18:34 100 MG Epoetin Roger-epbx 10,000 unit MWF@2100 SC 11/19/24 21:00 11/21/24 21:14 10,000 UNIT Lactated Ringer's 1,000 ml @ 60 mls/hr [id number] IV 11/20/24 08:30 11/23/24 15:00 60 MLS/HR Linezolid 300 ml @ 150 mls/hr Q12HR@0800,2000 IV 11/20/24 08:46 11/23/24 20:00 150 MLS/HR Pantoprazole Sodium 40 mg BID@0600,1700 PO 11/20/24 17:00 11/23/24 17:13 40 MG Labetalol HCl 100 mg Q12HR GT 11/20/24 10:00 11/23/24 08:08 100 MG Enoxaparin Sodium 40 mg DAILY SC 11/22/24 10:00 11/23/24 08:04 40 MG Enteral Nutritional Formula 1,000 ml 60ML/HR GT 11/22/24 11:00 laboratory and microbiology Laboratory Tests 11/23/24 08:52 11/22/24 02:48 Test 11/22/24 02:48 Range/Units Serum Glucose 78 74-106 mg/dL Problem List/Assessment/Plan Problems(with codes): (1) Elevated liver enzymes (2) Cholecystitis (3) TIA (transient ischemic attack) (4) Troponin level elevated (5) Shock (6) Altered mental status Problem List/Assessment/Plan Patient is a 48 year old male with a past medical history of stroke , hypertension , emphysema. patient was brought in by family due to mental status . Patient was having constipation for several days prior to admission . CT abdomen and pelvis showed a perforated viscus and surgery was consulted . Xlab was done , patient was found to have pepticles for perforation at levels of pylori of about 6 cm . Surgical corrected was performed . 3 catheters were placed and patient was admitted to ICU and put on pressers and IV antibiotics. liver ultrasound showed gallbladder wall thickening and pericolic cystitis edema consistent with acute cholecystitis due to hemodynamic instability . percutaneous cholecystostomy was placed by IR rather than surgical drainage . patient developed multifocal pneumonia and covered by antibiotics and patient underwent thoracentesis as well as chest tube placement . chest tube has been removed , right sided cholecystostomy tube remains in place . patient was trachea on october 27 2024 . Infectious disease was consulted due to blood cultures being persistently positive for peña albakins . patient has been on micafungin and meropenem . Patient is febrile with a T-max of 103 , with worsening anemia . Hemoglobin is 6.6 and received a blood transfusion . Likely the etiology of persistent fungemia include line related as patient has a midline placed white patient was actively fungemic . Would also be concerned about untreated source of bowel leak . endocarditis also remains a small possibility as well Last Ct abdomen and pelvis was done with contrast and showed no evidence of bowel leak 11/11: unable to communicate besides yes and no . on trach collar . 150ccs of cholecystostomy drainage . 11/12: blood cultures came back negative x1 , will need a minimum o f14 days micafungin . remains 8 liters trach collar with ongoing significant drainage through the cholecystostomy tube 11/13: not having abdominal pains . blood cultures were positive for yeast . midline has been removed . TTE is negative 11/14: midline was removed . repeat blood cultures are no growth to date 11/15: blood cultures remain negative . whitecount has normalized and off all pressers and breathing well on 8 liters trach collar Plan : - continue ertapenem , duration to be determined by drain output as well as any pending surgical plans - repeat blood cultures after midline is removed - continue micafungin for another 14 days - recommend Barrios exchange of the urine catheter - avoid unnecessary TPN and steroid use Authorized and Performed by: Jessica Woodard Total critical care time: Approximately 76 minutes Due to a high probability of clinically significant, life threatening deterioration, the patient required my highest level of preparedness to intervene emergently and I personally spent this critical care time directly and personally managing the patient. This critical care time included obtaining a history; examining the patient; pulse oximetry; ordering and review of studies; arranging urgent treatment with development of a management plan; evaluation of patient's response to treatment; frequent reassessment; and, discussions with other providers. This critical care time was performed to assess and manage the high probability of imminent, life-threatening deterioration that could result in multi-organ failure. It was exclusive of separately billable procedures and treating other patients and teaching time. Plan discussed with: Other Dietary Evaluation Review Comments: 1. Continue TPN to meet at least 75% estimated needs 2. Continue current POC Expected Outcomes/Goals: FU 2-3 days to meet adequate energy & protein within 7 days of NPO Protein Calorie Malnutrition: Severe (rn) CC Plasma Assessment Blood Product Administration S: [id number] JESSICA WOODARD MD Nov 23, 2024 21:29
--- NOTE | 2024-11-23 21:29 | DVHPN2 ---
Consult Progress Note Date Seen: Nov 17, 2024 Subjective Patient reports: No new complaints (no acute ditress overnight and coming down on oxygen needs ) Objective vital signs Vital Sign Date Time Temp Pulse Resp B/P (MAP) Pulse Ox O2 Delivery O2 Flow Rate FiO2 11/23/24 20:00 98.0 90 22 143/70 (94) 94 98.0 11/23/24 18:33 Room Air 0.0 11/23/24 18:33 21 Total Intake and Output 11/22/24 11/22/24 11/23/24 15:00 23:00 07:00 Intake Total 930 ml 690 ml 690 ml Output Total 1250 ml 750 ml Balance 930 ml -560 ml -60 ml medications Current Medications Medications Dose Ordered Sig/Wally Route Start Time Stop Time Status Last Admin Dose Admin Ondansetron HCl 4 mg Q4HP PRN IV 10/04/24 11:45 Morphine Sulfate 2 mg Q4HPRN PRN IV 10/04/24 11:45 Cancel Nitroglycerin 0.4 mg Q5MINP PRN SL 10/04/24 11:45 Morphine Sulfate 2 mg Q30M PRN IV 10/04/24 11:45 Cancel Lorazepam 50 mg/ Sodium Chloride 50 ml @ 1 mls/hr Q24H IV 10/04/24 18:15 Cancel Amino Acids 0 ml @ 0 mls/hr PER PHARMACY IV 10/05/24 14:30 UNV Meropenem 50 ml @ 17 mls/hr Q12HR IV 10/07/24 10:00 UNV Levalbuterol HCl 0.625 mg Q6HR NEB 10/13/24 12:00 11/23/24 18:33 0.625 MG Ipratropium [place] 0.5 mg Q6HR NEB 10/13/24 12:00 11/23/24 18:34 0.5 MG Morphine Sulfate 2 mg Q4HPRN PRN IV 10/21/24 11:30 11/10/24 05:15 2 MG Acetaminophen 650 mg Q6HP PRN GT 10/22/24 09:00 11/10/24 08:08 650 MG Sucralfate 1 gm BID@0600,2200 GT 10/28/24 22:00 11/23/24 06:00 1 GM Pantoprazole Sodium 50 ml @ 0 mls/hr Q0M IV 10/28/24 16:15 Cancel Sodium Chloride 10 ml QSHIFT@10,22 IV 10/31/24 22:00 11/23/24 08:03 10 ML Micafungin Sodium 100 mg/Sodium Chloride 100 ml @ 100 mls/hr DAILY IV 11/02/24 10:00 11/23/24 08:03 100 MLS/HR Acetaminophen/ Hydrocodone Bitart 1 tab Q4HPRN PRN PO 11/06/24 09:15 Lactulose 30 ml DAILY JT 11/11/24 10:00 11/23/24 08:04 30 ML Amlodipine Besylate 10 mg DAILY GT 11/11/24 10:00 11/23/24 08:08 10 MG Labetalol HCl 10 mg Q2HPRN PRN IV 11/12/24 17:00 11/17/24 19:40 10 MG Hydralazine HCl 50 mg Q8HR GT 11/13/24 14:00 11/23/24 15:02 50 MG Clonidine HCl 0.1 mg Q7D TD 11/13/24 07:00 11/20/24 08:12 0.1 MG Metoclopramide HCl 5 mg Q8HR IV 11/13/24 14:00 11/23/24 15:02 5 MG Ertapenem 1 gm/ Sodium Chloride 50 ml @ 100 mls/hr DAILY IV 11/14/24 10:00 11/23/24 07:58 100 MLS/HR Lorazepam 1 mg Q4HP PRN IV 11/14/24 16:15 11/18/24 20:05 1 MG Albuterol 2.5 mg Q3HPRN PRN NEB 11/18/24 10:30 Acetylcysteine 100 mg Q6HR NEB 11/18/24 12:00 11/23/24 18:34 100 MG Epoetin Roger-epbx 10,000 unit MWF@2100 SC 11/19/24 21:00 11/21/24 21:14 10,000 UNIT Lactated Ringer's 1,000 ml @ 60 mls/hr [id number] IV 11/20/24 08:30 11/23/24 15:00 60 MLS/HR Linezolid 300 ml @ 150 mls/hr Q12HR@0800,2000 IV 11/20/24 08:46 11/23/24 20:00 150 MLS/HR Pantoprazole Sodium 40 mg BID@0600,1700 PO 11/20/24 17:00 11/23/24 17:13 40 MG Labetalol HCl 100 mg Q12HR GT 11/20/24 10:00 11/23/24 08:08 100 MG Enoxaparin Sodium 40 mg DAILY SC 11/22/24 10:00 11/23/24 08:04 40 MG Enteral Nutritional Formula 1,000 ml 60ML/HR GT 11/22/24 11:00 laboratory and microbiology Laboratory Tests 11/23/24 08:52 11/22/24 02:48 Test 11/22/24 02:48 Range/Units Serum Glucose 78 74-106 mg/dL Problem List/Assessment/Plan Problems(with codes): (1) Severe anemia (2) Altered mental status (3) Shock (4) Troponin level elevated (5) TIA (transient ischemic attack) (6) Cholecystitis (7) Elevated liver enzymes Problem List/Assessment/Plan Patient is a 48 year old male with a past medical history of stroke , hypertension , emphysema. patient was brought in by family due to mental status . Patient was having constipation for several days prior to admission . CT abdomen and pelvis showed a perforated viscus and surgery was consulted . Xlab was done , patient was found to have pepticles for perforation at levels of pylori of about 6 cm . Surgical corrected was performed . 3 catheters were placed and patient was admitted to ICU and put on pressers and IV antibiotics. liver ultrasound showed gallbladder wall thickening and pericolic cystitis edema consistent with acute cholecystitis due to hemodynamic instability . percutaneous cholecystostomy was placed by IR rather than surgical drainage . patient developed multifocal pneumonia and covered by antibiotics and patient underwent thoracentesis as well as chest tube placement . chest tube has been removed , right sided cholecystostomy tube remains in place . patient was trachea on october 27 2024 . Infectious disease was consulted due to blood cultures being persistently positive for peña albakins . patient has been on micafungin and meropenem . Patient is febrile with a T-max of 103 , with worsening anemia . Hemoglobin is 6.6 and received a blood transfusion . Likely the etiology of persistent fungemia include line related as patient has a midline placed white patient was actively fungemic . Would also be concerned about untreated source of bowel leak . endocarditis also remains a small possibility as well Last Ct abdomen and pelvis was done with contrast and showed no evidence of bowel leak 11/11: unable to communicate besides yes and no . on trach collar . 150ccs of cholecystostomy drainage . 11/12: blood cultures came back negative x1 , will need a minimum o f14 days micafungin . remains 8 liters trach collar with ongoing significant drainage through the cholecystostomy tube 11/13: not having abdominal pains . blood cultures were positive for yeast . midline has been removed . TTE is negative 11/14: midline was removed . repeat blood cultures are no growth to date 11/15: blood cultures remain negative . whitecount has normalized and off all pressers and breathing well on 8 liters trach collar 11/16: blood cultures remain negative , drainage from abdominal drain is slowing as well 11/17: chest xray shows patchy bilateral airspace disease . whitecount remains normal Plan : - continue ertapenem , duration to be determined by drain output as well as any pending surgical plans - repeat blood cultures after midline is removed - continue micafungin for another 14 days - recommend Barrios exchange of the urine catheter - avoid unnecessary TPN and steroid use Authorized and Performed by: Jessica Woodard Total critical care time: Approximately 76 minutes Due to a high probability of clinically significant, life threatening deterioration, the patient required my highest level of preparedness to intervene emergently and I personally spent this critical care time directly and personally managing the patient. This critical care time included obtaining a history; examining the patient; pulse oximetry; ordering and review of studies; arranging urgent treatment with development of a management plan; evaluation of patient's response to treatment; frequent reassessment; and, discussions with other providers. This critical care time was performed to assess and manage the high probability of imminent, life-threatening deterioration that could result in multi-organ failure. It was exclusive of separately billable procedures and treating other patients and teaching time. Plan discussed with: Other Dietary Evaluation Review Comments: 1. Continue TPN to meet at least 75% estimated needs 2. Continue current POC Expected Outcomes/Goals: FU 2-3 days to meet adequate energy & protein within 7 days of NPO Protein Calorie Malnutrition: Severe (rn) CC Plasma Assessment Blood Product Administration S: [id number] JESSICA WOODARD MD Nov 23, 2024 21:29
--- NOTE | 2024-11-23 21:33 | DVHPN2 ---
Consult Progress Note Date Seen: Nov 18, 2024 Subjective Patient reports: Other (BP is stable , not tachycardic and lungs are clear . on 5 liters trach collar ) Objective vital signs Vital Sign Date Time Temp Pulse Resp B/P (MAP) Pulse Ox O2 Delivery O2 Flow Rate FiO2 11/23/24 20:00 98.0 90 22 143/70 (94) 94 98.0 11/23/24 18:33 Room Air 0.0 11/23/24 18:33 21 Total Intake and Output 11/22/24 11/22/24 11/23/24 15:00 23:00 07:00 Intake Total 930 ml 690 ml 690 ml Output Total 1250 ml 750 ml Balance 930 ml -560 ml -60 ml medications Current Medications Medications Dose Ordered Sig/Wally Route Start Time Stop Time Status Last Admin Dose Admin Ondansetron HCl 4 mg Q4HP PRN IV 10/04/24 11:45 Morphine Sulfate 2 mg Q4HPRN PRN IV 10/04/24 11:45 Cancel Nitroglycerin 0.4 mg Q5MINP PRN SL 10/04/24 11:45 Morphine Sulfate 2 mg Q30M PRN IV 10/04/24 11:45 Cancel Lorazepam 50 mg/ Sodium Chloride 50 ml @ 1 mls/hr Q24H IV 10/04/24 18:15 Cancel Amino Acids 0 ml @ 0 mls/hr PER PHARMACY IV 10/05/24 14:30 UNV Meropenem 50 ml @ 17 mls/hr Q12HR IV 10/07/24 10:00 UNV Levalbuterol HCl 0.625 mg Q6HR NEB 10/13/24 12:00 11/23/24 18:33 0.625 MG Ipratropium [place] 0.5 mg Q6HR NEB 10/13/24 12:00 11/23/24 18:34 0.5 MG Morphine Sulfate 2 mg Q4HPRN PRN IV 10/21/24 11:30 11/10/24 05:15 2 MG Acetaminophen 650 mg Q6HP PRN GT 10/22/24 09:00 11/10/24 08:08 650 MG Sucralfate 1 gm BID@0600,2200 GT 10/28/24 22:00 11/23/24 06:00 1 GM Pantoprazole Sodium 50 ml @ 0 mls/hr Q0M IV 10/28/24 16:15 Cancel Sodium Chloride 10 ml QSHIFT@10,22 IV 10/31/24 22:00 11/23/24 08:03 10 ML Micafungin Sodium 100 mg/Sodium Chloride 100 ml @ 100 mls/hr DAILY IV 11/02/24 10:00 11/23/24 08:03 100 MLS/HR Acetaminophen/ Hydrocodone Bitart 1 tab Q4HPRN PRN PO 11/06/24 09:15 Lactulose 30 ml DAILY JT 11/11/24 10:00 11/23/24 08:04 30 ML Amlodipine Besylate 10 mg DAILY GT 11/11/24 10:00 11/23/24 08:08 10 MG Labetalol HCl 10 mg Q2HPRN PRN IV 11/12/24 17:00 11/17/24 19:40 10 MG Hydralazine HCl 50 mg Q8HR GT 11/13/24 14:00 11/23/24 15:02 50 MG Clonidine HCl 0.1 mg Q7D TD 11/13/24 07:00 11/20/24 08:12 0.1 MG Metoclopramide HCl 5 mg Q8HR IV 11/13/24 14:00 11/23/24 15:02 5 MG Ertapenem 1 gm/ Sodium Chloride 50 ml @ 100 mls/hr DAILY IV 11/14/24 10:00 11/23/24 07:58 100 MLS/HR Lorazepam 1 mg Q4HP PRN IV 11/14/24 16:15 11/18/24 20:05 1 MG Albuterol 2.5 mg Q3HPRN PRN NEB 11/18/24 10:30 Acetylcysteine 100 mg Q6HR NEB 11/18/24 12:00 11/23/24 18:34 100 MG Epoetin Roger-epbx 10,000 unit MWF@2100 SC 11/19/24 21:00 11/21/24 21:14 10,000 UNIT Lactated Ringer's 1,000 ml @ 60 mls/hr [id number] IV 11/20/24 08:30 11/23/24 15:00 60 MLS/HR Linezolid 300 ml @ 150 mls/hr Q12HR@0800,2000 IV 11/20/24 08:46 11/23/24 20:00 150 MLS/HR Pantoprazole Sodium 40 mg BID@0600,1700 PO 11/20/24 17:00 11/23/24 17:13 40 MG Labetalol HCl 100 mg Q12HR GT 11/20/24 10:00 11/23/24 08:08 100 MG Enoxaparin Sodium 40 mg DAILY SC 11/22/24 10:00 11/23/24 08:04 40 MG Enteral Nutritional Formula 1,000 ml 60ML/HR GT 11/22/24 11:00 laboratory and microbiology Laboratory Tests 11/23/24 08:52 11/22/24 02:48 Test 11/22/24 02:48 Range/Units Serum Glucose 78 74-106 mg/dL Problem List/Assessment/Plan Problems(with codes): (1) Leukocytosis (2) Severe anemia (3) Shock (4) Altered mental status (5) Troponin level elevated (6) TIA (transient ischemic attack) (7) Cholecystitis (8) Elevated liver enzymes Problem List/Assessment/Plan Patient is a 48 year old male with a past medical history of stroke , hypertension , emphysema. patient was brought in by family due to mental status . Patient was having constipation for several days prior to admission . CT abdomen and pelvis showed a perforated viscus and surgery was consulted . Xlab was done , patient was found to have pepticles for perforation at levels of pylori of about 6 cm . Surgical corrected was performed . 3 catheters were placed and patient was admitted to ICU and put on pressers and IV antibiotics. liver ultrasound showed gallbladder wall thickening and pericolic cystitis edema consistent with acute cholecystitis due to hemodynamic instability . percutaneous cholecystostomy was placed by IR rather than surgical drainage . patient developed multifocal pneumonia and covered by antibiotics and patient underwent thoracentesis as well as chest tube placement . chest tube has been removed , right sided cholecystostomy tube remains in place . patient was trachea on october 27 2024 . Infectious disease was consulted due to blood cultures being persistently positive for peña albakins . patient has been on micafungin and meropenem . Patient is febrile with a T-max of 103 , with worsening anemia . Hemoglobin is 6.6 and received a blood transfusion . Likely the etiology of persistent fungemia include line related as patient has a midline placed white patient was actively fungemic . Would also be concerned about untreated source of bowel leak . endocarditis also remains a small possibility as well Last Ct abdomen and pelvis was done with contrast and showed no evidence of bowel leak 11/11: unable to communicate besides yes and no . on trach collar . 150ccs of cholecystostomy drainage . 11/12: blood cultures came back negative x1 , will need a minimum o f14 days micafungin . remains 8 liters trach collar with ongoing significant drainage through the cholecystostomy tube 11/13: not having abdominal pains . blood cultures were positive for yeast . midline has been removed . TTE is negative 11/14: midline was removed . repeat blood cultures are no growth to date 11/15: blood cultures remain negative . whitecount has normalized and off all pressers and breathing well on 8 liters trach collar 11/16: blood cultures remain negative , drainage from abdominal drain is slowing as well 11/17: chest xray shows patchy bilateral airspace disease . whitecount remains normal 11/18: blood pressers are stable Plan : - stop ertapenem treatment if leukocytosis remains resolved - ongoing infection is unlikely at this point so long as drain remains in place - would consider repeat imaging once drain has been removed given high amounts of drain thats persisted for over 2 months now - repeat blood cultures after midline is removed - continue micafungin for another 14 days - recommend Barrios exchange of the urine catheter - avoid unnecessary TPN and steroid use Authorized and Performed by: Jessica Woodard Total critical care time: Approximately 76 minutes Due to a high probability of clinically significant, life threatening deterioration, the patient required my highest level of preparedness to intervene emergently and I personally spent this critical care time directly and personally managing the patient. This critical care time included obtaining a history; examining the patient; pulse oximetry; ordering and review of studies; arranging urgent treatment with development of a management plan; evaluation of patient's response to treatment; frequent reassessment; and, discussions with other providers. This critical care time was performed to assess and manage the high probability of imminent, life-threatening deterioration that could result in multi-organ failure. It was exclusive of separately billable procedures and treating other patients and teaching time. Plan discussed with: Other Dietary Evaluation Review Comments: 1. Continue TPN to meet at least 75% estimated needs 2. Continue current POC Expected Outcomes/Goals: FU 2-3 days to meet adequate energy & protein within 7 days of NPO Protein Calorie Malnutrition: Severe (rn) CC Plasma Assessment Blood Product Administration S: [id number] JESSICA WOODARD MD Nov 23, 2024 21:33
--- NOTE | 2024-11-23 21:37 | DVHPN2 ---
Consult Progress Note Date Seen: Nov 19, 2024 Subjective Patient reports: No new complaints (tolerating tube feeds , having normal bowel sounds ) Objective vital signs Vital Sign Date Time Temp Pulse Resp B/P (MAP) Pulse Ox O2 Delivery O2 Flow Rate FiO2 11/23/24 20:00 98.0 90 22 143/70 (94) 94 98.0 11/23/24 18:33 Room Air 0.0 11/23/24 18:33 21 Total Intake and Output 11/22/24 11/22/24 11/23/24 15:00 23:00 07:00 Intake Total 930 ml 690 ml 690 ml Output Total 1250 ml 750 ml Balance 930 ml -560 ml -60 ml medications Current Medications Medications Dose Ordered Sig/Wally Route Start Time Stop Time Status Last Admin Dose Admin Ondansetron HCl 4 mg Q4HP PRN IV 10/04/24 11:45 Morphine Sulfate 2 mg Q4HPRN PRN IV 10/04/24 11:45 Cancel Nitroglycerin 0.4 mg Q5MINP PRN SL 10/04/24 11:45 Morphine Sulfate 2 mg Q30M PRN IV 10/04/24 11:45 Cancel Lorazepam 50 mg/ Sodium Chloride 50 ml @ 1 mls/hr Q24H IV 10/04/24 18:15 Cancel Amino Acids 0 ml @ 0 mls/hr PER PHARMACY IV 10/05/24 14:30 UNV Meropenem 50 ml @ 17 mls/hr Q12HR IV 10/07/24 10:00 UNV Levalbuterol HCl 0.625 mg Q6HR NEB 10/13/24 12:00 11/23/24 18:33 0.625 MG Ipratropium [place] 0.5 mg Q6HR NEB 10/13/24 12:00 11/23/24 18:34 0.5 MG Morphine Sulfate 2 mg Q4HPRN PRN IV 10/21/24 11:30 11/10/24 05:15 2 MG Acetaminophen 650 mg Q6HP PRN GT 10/22/24 09:00 11/10/24 08:08 650 MG Sucralfate 1 gm BID@0600,2200 GT 10/28/24 22:00 11/23/24 06:00 1 GM Pantoprazole Sodium 50 ml @ 0 mls/hr Q0M IV 10/28/24 16:15 Cancel Sodium Chloride 10 ml QSHIFT@10,22 IV 10/31/24 22:00 11/23/24 08:03 10 ML Micafungin Sodium 100 mg/Sodium Chloride 100 ml @ 100 mls/hr DAILY IV 11/02/24 10:00 11/23/24 08:03 100 MLS/HR Acetaminophen/ Hydrocodone Bitart 1 tab Q4HPRN PRN PO 11/06/24 09:15 Lactulose 30 ml DAILY JT 11/11/24 10:00 11/23/24 08:04 30 ML Amlodipine Besylate 10 mg DAILY GT 11/11/24 10:00 11/23/24 08:08 10 MG Labetalol HCl 10 mg Q2HPRN PRN IV 11/12/24 17:00 11/17/24 19:40 10 MG Hydralazine HCl 50 mg Q8HR GT 11/13/24 14:00 11/23/24 15:02 50 MG Clonidine HCl 0.1 mg Q7D TD 11/13/24 07:00 11/20/24 08:12 0.1 MG Metoclopramide HCl 5 mg Q8HR IV 11/13/24 14:00 11/23/24 15:02 5 MG Ertapenem 1 gm/ Sodium Chloride 50 ml @ 100 mls/hr DAILY IV 11/14/24 10:00 11/23/24 07:58 100 MLS/HR Lorazepam 1 mg Q4HP PRN IV 11/14/24 16:15 11/18/24 20:05 1 MG Albuterol 2.5 mg Q3HPRN PRN NEB 11/18/24 10:30 Acetylcysteine 100 mg Q6HR NEB 11/18/24 12:00 11/23/24 18:34 100 MG Epoetin Roger-epbx 10,000 unit MWF@2100 SC 11/19/24 21:00 11/21/24 21:14 10,000 UNIT Lactated Ringer's 1,000 ml @ 60 mls/hr [id number] IV 11/20/24 08:30 11/23/24 15:00 60 MLS/HR Linezolid 300 ml @ 150 mls/hr Q12HR@0800,2000 IV 11/20/24 08:46 11/23/24 20:00 150 MLS/HR Pantoprazole Sodium 40 mg BID@0600,1700 PO 11/20/24 17:00 11/23/24 17:13 40 MG Labetalol HCl 100 mg Q12HR GT 11/20/24 10:00 11/23/24 08:08 100 MG Enoxaparin Sodium 40 mg DAILY SC 11/22/24 10:00 11/23/24 08:04 40 MG Enteral Nutritional Formula 1,000 ml 60ML/HR GT 11/22/24 11:00 laboratory and microbiology Laboratory Tests 11/23/24 08:52 11/22/24 02:48 Test 11/22/24 02:48 Range/Units Serum Glucose 78 74-106 mg/dL Problem List/Assessment/Plan Problems(with codes): (1) Perforated viscus (2) Acute kidney injury (3) Severe anemia (4) Altered mental status (5) Shock (6) Troponin level elevated (7) TIA (transient ischemic attack) (8) Cholecystitis (9) Elevated liver enzymes Problem List/Assessment/Plan Patient is a 48 year old male with a past medical history of stroke , hypertension , emphysema. patient was brought in by family due to mental status . Patient was having constipation for several days prior to admission . CT abdomen and pelvis showed a perforated viscus and surgery was consulted . Xlab was done , patient was found to have pepticles for perforation at levels of pylori of about 6 cm . Surgical corrected was performed . 3 catheters were placed and patient was admitted to ICU and put on pressers and IV antibiotics. liver ultrasound showed gallbladder wall thickening and pericolic cystitis edema consistent with acute cholecystitis due to hemodynamic instability . percutaneous cholecystostomy was placed by IR rather than surgical drainage . patient developed multifocal pneumonia and covered by antibiotics and patient underwent thoracentesis as well as chest tube placement . chest tube has been removed , right sided cholecystostomy tube remains in place . patient was trachea on october 27 2024 . Infectious disease was consulted due to blood cultures being persistently positive for peña albakins . patient has been on micafungin and meropenem . Patient is febrile with a T-max of 103 , with worsening anemia . Hemoglobin is 6.6 and received a blood transfusion . Likely the etiology of persistent fungemia include line related as patient has a midline placed white patient was actively fungemic . Would also be concerned about untreated source of bowel leak . endocarditis also remains a small possibility as well Last Ct abdomen and pelvis was done with contrast and showed no evidence of bowel leak 11/11: unable to communicate besides yes and no . on trach collar . 150ccs of cholecystostomy drainage . 11/12: blood cultures came back negative x1 , will need a minimum o f14 days micafungin . remains 8 liters trach collar with ongoing significant drainage through the cholecystostomy tube 11/13: not having abdominal pains . blood cultures were positive for yeast . midline has been removed . TTE is negative 11/14: midline was removed . repeat blood cultures are no growth to date 11/15: blood cultures remain negative . whitecount has normalized and off all pressers and breathing well on 8 liters trach collar 11/16: blood cultures remain negative , drainage from abdominal drain is slowing as well 11/17: chest xray shows patchy bilateral airspace disease . whitecount remains normal 11/18: blood pressers are stable 11/19: potassium is low at times Plan : - stop ertapenem treatment if leukocytosis remains resolved - ongoing infection is unlikely at this point so long as drain remains in place - would consider repeat imaging once drain has been removed given high amounts of drain thats persisted for over 2 months now - repeat blood cultures after midline is removed - continue micafungin for another 14 days - recommend Barrios exchange of the urine catheter - avoid unnecessary TPN and steroid use Authorized and Performed by: Jessica Woodard Total critical care time: Approximately 76 minutes Due to a high probability of clinically significant, life threatening deterioration, the patient required my highest level of preparedness to intervene emergently and I personally spent this critical care time directly and personally managing the patient. This critical care time included obtaining a history; examining the patient; pulse oximetry; ordering and review of studies; arranging urgent treatment with development of a management plan; evaluation of patient's response to treatment; frequent reassessment; and, discussions with other providers. This critical care time was performed to assess and manage the high probability of imminent, life-threatening deterioration that could result in multi-organ failure. It was exclusive of separately billable procedures and treating other patients and teaching time. Plan discussed with: Other Dietary Evaluation Review Comments: 1. Continue TPN to meet at least 75% estimated needs 2. Continue current POC Expected Outcomes/Goals: FU 2-3 days to meet adequate energy & protein within 7 days of NPO Protein Calorie Malnutrition: Severe (rn) CC Plasma Assessment Blood Product Administration S: [id number] JESSICA WOODARD MD Nov 23, 2024 21:37
--- NOTE | 2024-11-23 21:37 | DVHPN2 ---
Consult Progress Note Date Seen: Nov 20, 2024 Subjective Patient reports: Other (fever overnight , required a little more oxygen and back up to 8 liters trach collar ) Objective vital signs Vital Sign Date Time Temp Pulse Resp B/P (MAP) Pulse Ox O2 Delivery O2 Flow Rate FiO2 11/23/24 20:00 98.0 90 22 143/70 (94) 94 98.0 11/23/24 18:33 Room Air 0.0 11/23/24 18:33 21 Total Intake and Output 11/22/24 11/22/24 11/23/24 15:00 23:00 07:00 Intake Total 930 ml 690 ml 690 ml Output Total 1250 ml 750 ml Balance 930 ml -560 ml -60 ml medications Current Medications Medications Dose Ordered Sig/Wally Route Start Time Stop Time Status Last Admin Dose Admin Ondansetron HCl 4 mg Q4HP PRN IV 10/04/24 11:45 Morphine Sulfate 2 mg Q4HPRN PRN IV 10/04/24 11:45 Cancel Nitroglycerin 0.4 mg Q5MINP PRN SL 10/04/24 11:45 Morphine Sulfate 2 mg Q30M PRN IV 10/04/24 11:45 Cancel Lorazepam 50 mg/ Sodium Chloride 50 ml @ 1 mls/hr Q24H IV 10/04/24 18:15 Cancel Amino Acids 0 ml @ 0 mls/hr PER PHARMACY IV 10/05/24 14:30 UNV Meropenem 50 ml @ 17 mls/hr Q12HR IV 10/07/24 10:00 UNV Levalbuterol HCl 0.625 mg Q6HR NEB 10/13/24 12:00 11/23/24 18:33 0.625 MG Ipratropium [place] 0.5 mg Q6HR NEB 10/13/24 12:00 11/23/24 18:34 0.5 MG Morphine Sulfate 2 mg Q4HPRN PRN IV 10/21/24 11:30 11/10/24 05:15 2 MG Acetaminophen 650 mg Q6HP PRN GT 10/22/24 09:00 11/10/24 08:08 650 MG Sucralfate 1 gm BID@0600,2200 GT 10/28/24 22:00 11/23/24 06:00 1 GM Pantoprazole Sodium 50 ml @ 0 mls/hr Q0M IV 10/28/24 16:15 Cancel Sodium Chloride 10 ml QSHIFT@10,22 IV 10/31/24 22:00 11/23/24 08:03 10 ML Micafungin Sodium 100 mg/Sodium Chloride 100 ml @ 100 mls/hr DAILY IV 11/02/24 10:00 11/23/24 08:03 100 MLS/HR Acetaminophen/ Hydrocodone Bitart 1 tab Q4HPRN PRN PO 11/06/24 09:15 Lactulose 30 ml DAILY JT 11/11/24 10:00 11/23/24 08:04 30 ML Amlodipine Besylate 10 mg DAILY GT 11/11/24 10:00 11/23/24 08:08 10 MG Labetalol HCl 10 mg Q2HPRN PRN IV 11/12/24 17:00 11/17/24 19:40 10 MG Hydralazine HCl 50 mg Q8HR GT 11/13/24 14:00 11/23/24 15:02 50 MG Clonidine HCl 0.1 mg Q7D TD 11/13/24 07:00 11/20/24 08:12 0.1 MG Metoclopramide HCl 5 mg Q8HR IV 11/13/24 14:00 11/23/24 15:02 5 MG Ertapenem 1 gm/ Sodium Chloride 50 ml @ 100 mls/hr DAILY IV 11/14/24 10:00 11/23/24 07:58 100 MLS/HR Lorazepam 1 mg Q4HP PRN IV 11/14/24 16:15 11/18/24 20:05 1 MG Albuterol 2.5 mg Q3HPRN PRN NEB 11/18/24 10:30 Acetylcysteine 100 mg Q6HR NEB 11/18/24 12:00 11/23/24 18:34 100 MG Epoetin Roger-epbx 10,000 unit MWF@2100 SC 11/19/24 21:00 11/21/24 21:14 10,000 UNIT Lactated Ringer's 1,000 ml @ 60 mls/hr [id number] IV 11/20/24 08:30 11/23/24 15:00 60 MLS/HR Linezolid 300 ml @ 150 mls/hr Q12HR@0800,2000 IV 11/20/24 08:46 11/23/24 20:00 150 MLS/HR Pantoprazole Sodium 40 mg BID@0600,1700 PO 11/20/24 17:00 11/23/24 17:13 40 MG Labetalol HCl 100 mg Q12HR GT 11/20/24 10:00 11/23/24 08:08 100 MG Enoxaparin Sodium 40 mg DAILY SC 11/22/24 10:00 11/23/24 08:04 40 MG Enteral Nutritional Formula 1,000 ml 60ML/HR GT 11/22/24 11:00 laboratory and microbiology Laboratory Tests 11/23/24 08:52 11/22/24 02:48 Test 11/22/24 02:48 Range/Units Serum Glucose 78 74-106 mg/dL Problem List/Assessment/Plan Problems(with codes): (1) Elevated liver enzymes (2) Cholecystitis (3) TIA (transient ischemic attack) (4) Troponin level elevated (5) Shock (6) Altered mental status Problem List/Assessment/Plan Patient is a 48 year old male with a past medical history of stroke , hypertension , emphysema. patient was brought in by family due to mental status . Patient was having constipation for several days prior to admission . CT abdomen and pelvis showed a perforated viscus and surgery was consulted . Xlab was done , patient was found to have pepticles for perforation at levels of pylori of about 6 cm . Surgical corrected was performed . 3 catheters were placed and patient was admitted to ICU and put on pressers and IV antibiotics. liver ultrasound showed gallbladder wall thickening and pericolic cystitis edema consistent with acute cholecystitis due to hemodynamic instability . percutaneous cholecystostomy was placed by IR rather than surgical drainage . patient developed multifocal pneumonia and covered by antibiotics and patient underwent thoracentesis as well as chest tube placement . chest tube has been removed , right sided cholecystostomy tube remains in place . patient was trachea on october 27 2024 . Infectious disease was consulted due to blood cultures being persistently positive for peña albakins . patient has been on micafungin and meropenem . Patient is febrile with a T-max of 103 , with worsening anemia . Hemoglobin is 6.6 and received a blood transfusion . Likely the etiology of persistent fungemia include line related as patient has a midline placed white patient was actively fungemic . Would also be concerned about untreated source of bowel leak . endocarditis also remains a small possibility as well Last Ct abdomen and pelvis was done with contrast and showed no evidence of bowel leak 11/11: unable to communicate besides yes and no . on trach collar . 150ccs of cholecystostomy drainage . 11/12: blood cultures came back negative x1 , will need a minimum o f14 days micafungin . remains 8 liters trach collar with ongoing significant drainage through the cholecystostomy tube 11/13: not having abdominal pains . blood cultures were positive for yeast . midline has been removed . TTE is negative 11/14: midline was removed . repeat blood cultures are no growth to date 11/15: blood cultures remain negative . whitecount has normalized and off all pressers and breathing well on 8 liters trach collar 11/16: blood cultures remain negative , drainage from abdominal drain is slowing as well 11/17: chest xray shows patchy bilateral airspace disease . whitecount remains normal 11/18: blood pressers are stable 11/19: potassium is low at times 11/20: most likely explanation for fevers and leukocytosis is aspiration pneumonitis Plan : - agree with getting a chest xray and starting oral linezolid - f/u and see if linezolid needs to be continued - continue envance for now - check sputum culture - stop ertapenem treatment if leukocytosis remains resolved - ongoing infection is unlikely at this point so long as drain remains in place - would consider repeat imaging once drain has been removed given high amounts of drain thats persisted for over 2 months now - repeat blood cultures after midline is removed - continue micafungin for another 14 days - recommend Barrios exchange of the urine catheter - avoid unnecessary TPN and steroid use Authorized and Performed by: Jessica Woodard Total critical care time: Approximately 76 minutes Due to a high probability of clinically significant, life threatening deterioration, the patient required my highest level of preparedness to intervene emergently and I personally spent this critical care time directly and personally managing the patient. This critical care time included obtaining a history; examining the patient; pulse oximetry; ordering and review of studies; arranging urgent treatment with development of a management plan; evaluation of patient's response to treatment; frequent reassessment; and, discussions with other providers. This critical care time was performed to assess and manage the high probability of imminent, life-threatening deterioration that could result in multi-organ failure. It was exclusive of separately billable procedures and treating other patients and teaching time. Plan discussed with: Other Dietary Evaluation Review Comments: 1. Continue TPN to meet at least 75% estimated needs 2. Continue current POC Expected Outcomes/Goals: FU 2-3 days to meet adequate energy & protein within 7 days of NPO Protein Calorie Malnutrition: Severe (rn) CC Plasma Assessment Blood Product Administration S: [id number] JESSICA WOODARD MD Nov 23, 2024 21:37
--- NOTE | 2024-11-23 21:38 | DVHPN2 ---
Consult Progress Note Date Seen: Nov 24, 2024 Subjective Patient reports: Other (having 300ccs of clear liquid output from drain and started tube feeds , tolerating them ) Objective vital signs Vital Sign Date Time Temp Pulse Resp B/P (MAP) Pulse Ox O2 Delivery O2 Flow Rate FiO2 11/23/24 20:00 98.0 90 22 143/70 (94) 94 98.0 11/23/24 18:33 Room Air 0.0 11/23/24 18:33 21 Total Intake and Output 11/22/24 11/22/24 11/23/24 15:00 23:00 07:00 Intake Total 930 ml 690 ml 690 ml Output Total 1250 ml 750 ml Balance 930 ml -560 ml -60 ml medications Current Medications Medications Dose Ordered Sig/Wally Route Start Time Stop Time Status Last Admin Dose Admin Ondansetron HCl 4 mg Q4HP PRN IV 10/04/24 11:45 Morphine Sulfate 2 mg Q4HPRN PRN IV 10/04/24 11:45 Cancel Nitroglycerin 0.4 mg Q5MINP PRN SL 10/04/24 11:45 Morphine Sulfate 2 mg Q30M PRN IV 10/04/24 11:45 Cancel Lorazepam 50 mg/ Sodium Chloride 50 ml @ 1 mls/hr Q24H IV 10/04/24 18:15 Cancel Amino Acids 0 ml @ 0 mls/hr PER PHARMACY IV 10/05/24 14:30 UNV Meropenem 50 ml @ 17 mls/hr Q12HR IV 10/07/24 10:00 UNV Levalbuterol HCl 0.625 mg Q6HR NEB 10/13/24 12:00 11/23/24 18:33 0.625 MG Ipratropium [place] 0.5 mg Q6HR NEB 10/13/24 12:00 11/23/24 18:34 0.5 MG Morphine Sulfate 2 mg Q4HPRN PRN IV 10/21/24 11:30 11/10/24 05:15 2 MG Acetaminophen 650 mg Q6HP PRN GT 10/22/24 09:00 11/10/24 08:08 650 MG Sucralfate 1 gm BID@0600,2200 GT 10/28/24 22:00 11/23/24 06:00 1 GM Pantoprazole Sodium 50 ml @ 0 mls/hr Q0M IV 10/28/24 16:15 Cancel Sodium Chloride 10 ml QSHIFT@10,22 IV 10/31/24 22:00 11/23/24 08:03 10 ML Micafungin Sodium 100 mg/Sodium Chloride 100 ml @ 100 mls/hr DAILY IV 11/02/24 10:00 11/23/24 08:03 100 MLS/HR Acetaminophen/ Hydrocodone Bitart 1 tab Q4HPRN PRN PO 11/06/24 09:15 Lactulose 30 ml DAILY JT 11/11/24 10:00 11/23/24 08:04 30 ML Amlodipine Besylate 10 mg DAILY GT 11/11/24 10:00 11/23/24 08:08 10 MG Labetalol HCl 10 mg Q2HPRN PRN IV 11/12/24 17:00 11/17/24 19:40 10 MG Hydralazine HCl 50 mg Q8HR GT 11/13/24 14:00 11/23/24 15:02 50 MG Clonidine HCl 0.1 mg Q7D TD 11/13/24 07:00 11/20/24 08:12 0.1 MG Metoclopramide HCl 5 mg Q8HR IV 11/13/24 14:00 11/23/24 15:02 5 MG Ertapenem 1 gm/ Sodium Chloride 50 ml @ 100 mls/hr DAILY IV 11/14/24 10:00 11/23/24 07:58 100 MLS/HR Lorazepam 1 mg Q4HP PRN IV 11/14/24 16:15 11/18/24 20:05 1 MG Albuterol 2.5 mg Q3HPRN PRN NEB 11/18/24 10:30 Acetylcysteine 100 mg Q6HR NEB 11/18/24 12:00 11/23/24 18:34 100 MG Epoetin Roger-epbx 10,000 unit MWF@2100 SC 11/19/24 21:00 11/21/24 21:14 10,000 UNIT Lactated Ringer's 1,000 ml @ 60 mls/hr [id number] IV 11/20/24 08:30 11/23/24 15:00 60 MLS/HR Linezolid 300 ml @ 150 mls/hr Q12HR@0800,2000 IV 11/20/24 08:46 11/23/24 20:00 150 MLS/HR Pantoprazole Sodium 40 mg BID@0600,1700 PO 11/20/24 17:00 11/23/24 17:13 40 MG Labetalol HCl 100 mg Q12HR GT 11/20/24 10:00 11/23/24 08:08 100 MG Enoxaparin Sodium 40 mg DAILY SC 11/22/24 10:00 11/23/24 08:04 40 MG Enteral Nutritional Formula 1,000 ml 60ML/HR GT 11/22/24 11:00 laboratory and microbiology Laboratory Tests 11/23/24 08:52 11/22/24 02:48 Test 11/22/24 02:48 Range/Units Serum Glucose 78 74-106 mg/dL Problem List/Assessment/Plan Problems(with codes): (1) Severe anemia (2) Troponin level elevated (3) Shock (4) Altered mental status (5) TIA (transient ischemic attack) (6) Cholecystitis (7) Elevated liver enzymes Problem List/Assessment/Plan Patient is a 48 year old male with a past medical history of stroke , hypertension , emphysema. patient was brought in by family due to mental status . Patient was having constipation for several days prior to admission . CT abdomen and pelvis showed a perforated viscus and surgery was consulted . Xlab was done , patient was found to have pepticles for perforation at levels of pylori of about 6 cm . Surgical corrected was performed . 3 catheters were placed and patient was admitted to ICU and put on pressers and IV antibiotics. liver ultrasound showed gallbladder wall thickening and pericolic cystitis edema consistent with acute cholecystitis due to hemodynamic instability . percutaneous cholecystostomy was placed by IR rather than surgical drainage . patient developed multifocal pneumonia and covered by antibiotics and patient underwent thoracentesis as well as chest tube placement . chest tube has been removed , right sided cholecystostomy tube remains in place . patient was trachea on october 27 2024 . Infectious disease was consulted due to blood cultures being persistently positive for peña albakins . patient has been on micafungin and meropenem . Patient is febrile with a T-max of 103 , with worsening anemia . Hemoglobin is 6.6 and received a blood transfusion . Likely the etiology of persistent fungemia include line related as patient has a midline placed white patient was actively fungemic . Would also be concerned about untreated source of bowel leak . endocarditis also remains a small possibility as well Last Ct abdomen and pelvis was done with contrast and showed no evidence of bowel leak 11/11: unable to communicate besides yes and no . on trach collar . 150ccs of cholecystostomy drainage . 11/12: blood cultures came back negative x1 , will need a minimum o f14 days micafungin . remains 8 liters trach collar with ongoing significant drainage through the cholecystostomy tube 11/13: not having abdominal pains . blood cultures were positive for yeast . midline has been removed . TTE is negative 11/14: midline was removed . repeat blood cultures are no growth to date 11/15: blood cultures remain negative . whitecount has normalized and off all pressers and breathing well on 8 liters trach collar 11/16: blood cultures remain negative , drainage from abdominal drain is slowing as well 11/17: chest xray shows patchy bilateral airspace disease . whitecount remains normal 11/18: blood pressers are stable 11/19: potassium is low at times 11/20: most likely explanation for fevers and leukocytosis is aspiration pneumonitis 11/21: chest xray shows bilateral airspace disease 11/22: doing well on room air , no signs of pneumonia . sputum culture is showing normal dominic 11/23: potassium at 3.2 , still requiring electrolyte replacements frequently 11/24: having bowel movements and tolerating tube feeds Plan : - continue to monitor clinically - continue micafungin until 11/28/24 - f/u on pending respiratory cultures - continue envance for now - ongoing infection is unlikely at this point so long as drain remains in place - would consider repeat imaging once drain has been removed given high amounts of drain thats persisted for over 2 months now - repeat blood cultures after midline is removed - recommend Barrios exchange of the urine catheter - avoid unnecessary TPN and steroid use Authorized and Performed by: Jessica Woodard Total critical care time: Approximately 76 minutes Due to a high probability of clinically significant, life threatening deterioration, the patient required my highest level of preparedness to intervene emergently and I personally spent this critical care time directly and personally managing the patient. This critical care time included obtaining a history; examining the patient; pulse oximetry; ordering and review of studies; arranging urgent treatment with development of a management plan; evaluation of patient's response to treatment; frequent reassessment; and, discussions with other providers. This critical care time was performed to assess and manage the high probability of imminent, life-threatening deterioration that could result in multi-organ failure. It was exclusive of separately billable procedures and treating other patients and teaching time. Plan discussed with: Other Dietary Evaluation Review Comments: 1. Continue TPN to meet at least 75% estimated needs 2. Continue current POC Expected Outcomes/Goals: FU 2-3 days to meet adequate energy & protein within 7 days of NPO Protein Calorie Malnutrition: Severe (rn) CC Plasma Assessment Blood Product Administration S: [id number] JESSICA WOODARD MD Nov 23, 2024 21:38
--- NOTE | 2024-11-23 21:38 | DVHPN2 ---
Consult Progress Note Date Seen: Nov 23, 2024 Subjective Patient reports: No new complaints (continues to do well on room air , has about 100ccs of drainage from abdominal drain ) Objective vital signs Vital Sign Date Time Temp Pulse Resp B/P (MAP) Pulse Ox O2 Delivery O2 Flow Rate FiO2 11/23/24 20:00 98.0 90 22 143/70 (94) 94 98.0 11/23/24 18:33 Room Air 0.0 11/23/24 18:33 21 Total Intake and Output 11/22/24 11/22/24 11/23/24 15:00 23:00 07:00 Intake Total 930 ml 690 ml 690 ml Output Total 1250 ml 750 ml Balance 930 ml -560 ml -60 ml medications Current Medications Medications Dose Ordered Sig/Wally Route Start Time Stop Time Status Last Admin Dose Admin Ondansetron HCl 4 mg Q4HP PRN IV 10/04/24 11:45 Morphine Sulfate 2 mg Q4HPRN PRN IV 10/04/24 11:45 Cancel Nitroglycerin 0.4 mg Q5MINP PRN SL 10/04/24 11:45 Morphine Sulfate 2 mg Q30M PRN IV 10/04/24 11:45 Cancel Lorazepam 50 mg/ Sodium Chloride 50 ml @ 1 mls/hr Q24H IV 10/04/24 18:15 Cancel Amino Acids 0 ml @ 0 mls/hr PER PHARMACY IV 10/05/24 14:30 UNV Meropenem 50 ml @ 17 mls/hr Q12HR IV 10/07/24 10:00 UNV Levalbuterol HCl 0.625 mg Q6HR NEB 10/13/24 12:00 11/23/24 18:33 0.625 MG Ipratropium [place] 0.5 mg Q6HR NEB 10/13/24 12:00 11/23/24 18:34 0.5 MG Morphine Sulfate 2 mg Q4HPRN PRN IV 10/21/24 11:30 11/10/24 05:15 2 MG Acetaminophen 650 mg Q6HP PRN GT 10/22/24 09:00 11/10/24 08:08 650 MG Sucralfate 1 gm BID@0600,2200 GT 10/28/24 22:00 11/23/24 06:00 1 GM Pantoprazole Sodium 50 ml @ 0 mls/hr Q0M IV 10/28/24 16:15 Cancel Sodium Chloride 10 ml QSHIFT@10,22 IV 10/31/24 22:00 11/23/24 08:03 10 ML Micafungin Sodium 100 mg/Sodium Chloride 100 ml @ 100 mls/hr DAILY IV 11/02/24 10:00 11/23/24 08:03 100 MLS/HR Acetaminophen/ Hydrocodone Bitart 1 tab Q4HPRN PRN PO 11/06/24 09:15 Lactulose 30 ml DAILY JT 11/11/24 10:00 11/23/24 08:04 30 ML Amlodipine Besylate 10 mg DAILY GT 11/11/24 10:00 11/23/24 08:08 10 MG Labetalol HCl 10 mg Q2HPRN PRN IV 11/12/24 17:00 11/17/24 19:40 10 MG Hydralazine HCl 50 mg Q8HR GT 11/13/24 14:00 11/23/24 15:02 50 MG Clonidine HCl 0.1 mg Q7D TD 11/13/24 07:00 11/20/24 08:12 0.1 MG Metoclopramide HCl 5 mg Q8HR IV 11/13/24 14:00 11/23/24 15:02 5 MG Ertapenem 1 gm/ Sodium Chloride 50 ml @ 100 mls/hr DAILY IV 11/14/24 10:00 11/23/24 07:58 100 MLS/HR Lorazepam 1 mg Q4HP PRN IV 11/14/24 16:15 11/18/24 20:05 1 MG Albuterol 2.5 mg Q3HPRN PRN NEB 11/18/24 10:30 Acetylcysteine 100 mg Q6HR NEB 11/18/24 12:00 11/23/24 18:34 100 MG Epoetin Roger-epbx 10,000 unit MWF@2100 SC 11/19/24 21:00 11/21/24 21:14 10,000 UNIT Lactated Ringer's 1,000 ml @ 60 mls/hr [id number] IV 11/20/24 08:30 11/23/24 15:00 60 MLS/HR Linezolid 300 ml @ 150 mls/hr Q12HR@0800,2000 IV 11/20/24 08:46 11/23/24 20:00 150 MLS/HR Pantoprazole Sodium 40 mg BID@0600,1700 PO 11/20/24 17:00 11/23/24 17:13 40 MG Labetalol HCl 100 mg Q12HR GT 11/20/24 10:00 11/23/24 08:08 100 MG Enoxaparin Sodium 40 mg DAILY SC 11/22/24 10:00 11/23/24 08:04 40 MG Enteral Nutritional Formula 1,000 ml 60ML/HR GT 11/22/24 11:00 laboratory and microbiology Laboratory Tests 11/23/24 08:52 11/22/24 02:48 Test 11/22/24 02:48 Range/Units Serum Glucose 78 74-106 mg/dL Problem List/Assessment/Plan Problems(with codes): (1) Acute kidney injury (2) Altered mental status (3) Shock (4) Troponin level elevated (5) TIA (transient ischemic attack) (6) Cholecystitis (7) Elevated liver enzymes Problem List/Assessment/Plan Patient is a 48 year old male with a past medical history of stroke , hypertension , emphysema. patient was brought in by family due to mental status . Patient was having constipation for several days prior to admission . CT abdomen and pelvis showed a perforated viscus and surgery was consulted . Xlab was done , patient was found to have pepticles for perforation at levels of pylori of about 6 cm . Surgical corrected was performed . 3 catheters were placed and patient was admitted to ICU and put on pressers and IV antibiotics. liver ultrasound showed gallbladder wall thickening and pericolic cystitis edema consistent with acute cholecystitis due to hemodynamic instability . percutaneous cholecystostomy was placed by IR rather than surgical drainage . patient developed multifocal pneumonia and covered by antibiotics and patient underwent thoracentesis as well as chest tube placement . chest tube has been removed , right sided cholecystostomy tube remains in place . patient was trachea on october 27 2024 . Infectious disease was consulted due to blood cultures being persistently positive for peña albakins . patient has been on micafungin and meropenem . Patient is febrile with a T-max of 103 , with worsening anemia . Hemoglobin is 6.6 and received a blood transfusion . Likely the etiology of persistent fungemia include line related as patient has a midline placed white patient was actively fungemic . Would also be concerned about untreated source of bowel leak . endocarditis also remains a small possibility as well Last Ct abdomen and pelvis was done with contrast and showed no evidence of bowel leak 11/11: unable to communicate besides yes and no . on trach collar . 150ccs of cholecystostomy drainage . 11/12: blood cultures came back negative x1 , will need a minimum o f14 days micafungin . remains 8 liters trach collar with ongoing significant drainage through the cholecystostomy tube 11/13: not having abdominal pains . blood cultures were positive for yeast . midline has been removed . TTE is negative 11/14: midline was removed . repeat blood cultures are no growth to date 11/15: blood cultures remain negative . whitecount has normalized and off all pressers and breathing well on 8 liters trach collar 11/16: blood cultures remain negative , drainage from abdominal drain is slowing as well 11/17: chest xray shows patchy bilateral airspace disease . whitecount remains normal 11/18: blood pressers are stable 11/19: potassium is low at times 11/20: most likely explanation for fevers and leukocytosis is aspiration pneumonitis 11/21: chest xray shows bilateral airspace disease 11/22: doing well on room air , no signs of pneumonia . sputum culture is showing normal dominic 11/23: potassium at 3.2 , still requiring electrolyte replacements frequently Plan : - stop ertapenem at this time - continue micafungin until 11/28/24 - f/u on pending respiratory cultures - continue envance for now - ongoing infection is unlikely at this point so long as drain remains in place - would consider repeat imaging once drain has been removed given high amounts of drain thats persisted for over 2 months now - repeat blood cultures after midline is removed - recommend Barrios exchange of the urine catheter - avoid unnecessary TPN and steroid use Authorized and Performed by: Jessica Woodard Total critical care time: Approximately 76 minutes Due to a high probability of clinically significant, life threatening deterioration, the patient required my highest level of preparedness to intervene emergently and I personally spent this critical care time directly and personally managing the patient. This critical care time included obtaining a history; examining the patient; pulse oximetry; ordering and review of studies; arranging urgent treatment with development of a management plan; evaluation of patient's response to treatment; frequent reassessment; and, discussions with other providers. This critical care time was performed to assess and manage the high probability of imminent, life-threatening deterioration that could result in multi-organ failure. It was exclusive of separately billable procedures and treating other patients and teaching time. Plan discussed with: Other Dietary Evaluation Review Comments: 1. Continue TPN to meet at least 75% estimated needs 2. Continue current POC Expected Outcomes/Goals: FU 2-3 days to meet adequate energy & protein within 7 days of NPO Protein Calorie Malnutrition: Severe (rn) CC Plasma Assessment Blood Product Administration S: [id number] JESSICA WOODARD MD Nov 23, 2024 21:38
--- NOTE | 2024-11-23 21:38 | DVHPN2 ---
Consult Progress Note Date Seen: Nov 22, 2024 Subjective Patient reports: Other (titrated down to room air , breathing clearly ) Objective vital signs Vital Sign Date Time Temp Pulse Resp B/P (MAP) Pulse Ox O2 Delivery O2 Flow Rate FiO2 11/23/24 20:00 98.0 90 22 143/70 (94) 94 98.0 11/23/24 18:33 Room Air 0.0 11/23/24 18:33 21 Total Intake and Output 11/22/24 11/22/24 11/23/24 15:00 23:00 07:00 Intake Total 930 ml 690 ml 690 ml Output Total 1250 ml 750 ml Balance 930 ml -560 ml -60 ml medications Current Medications Medications Dose Ordered Sig/Wally Route Start Time Stop Time Status Last Admin Dose Admin Ondansetron HCl 4 mg Q4HP PRN IV 10/04/24 11:45 Morphine Sulfate 2 mg Q4HPRN PRN IV 10/04/24 11:45 Cancel Nitroglycerin 0.4 mg Q5MINP PRN SL 10/04/24 11:45 Morphine Sulfate 2 mg Q30M PRN IV 10/04/24 11:45 Cancel Lorazepam 50 mg/ Sodium Chloride 50 ml @ 1 mls/hr Q24H IV 10/04/24 18:15 Cancel Amino Acids 0 ml @ 0 mls/hr PER PHARMACY IV 10/05/24 14:30 UNV Meropenem 50 ml @ 17 mls/hr Q12HR IV 10/07/24 10:00 UNV Levalbuterol HCl 0.625 mg Q6HR NEB 10/13/24 12:00 11/23/24 18:33 0.625 MG Ipratropium [place] 0.5 mg Q6HR NEB 10/13/24 12:00 11/23/24 18:34 0.5 MG Morphine Sulfate 2 mg Q4HPRN PRN IV 10/21/24 11:30 11/10/24 05:15 2 MG Acetaminophen 650 mg Q6HP PRN GT 10/22/24 09:00 11/10/24 08:08 650 MG Sucralfate 1 gm BID@0600,2200 GT 10/28/24 22:00 11/23/24 06:00 1 GM Pantoprazole Sodium 50 ml @ 0 mls/hr Q0M IV 10/28/24 16:15 Cancel Sodium Chloride 10 ml QSHIFT@10,22 IV 10/31/24 22:00 11/23/24 08:03 10 ML Micafungin Sodium 100 mg/Sodium Chloride 100 ml @ 100 mls/hr DAILY IV 11/02/24 10:00 11/23/24 08:03 100 MLS/HR Acetaminophen/ Hydrocodone Bitart 1 tab Q4HPRN PRN PO 11/06/24 09:15 Lactulose 30 ml DAILY JT 11/11/24 10:00 11/23/24 08:04 30 ML Amlodipine Besylate 10 mg DAILY GT 11/11/24 10:00 11/23/24 08:08 10 MG Labetalol HCl 10 mg Q2HPRN PRN IV 11/12/24 17:00 11/17/24 19:40 10 MG Hydralazine HCl 50 mg Q8HR GT 11/13/24 14:00 11/23/24 15:02 50 MG Clonidine HCl 0.1 mg Q7D TD 11/13/24 07:00 11/20/24 08:12 0.1 MG Metoclopramide HCl 5 mg Q8HR IV 11/13/24 14:00 11/23/24 15:02 5 MG Ertapenem 1 gm/ Sodium Chloride 50 ml @ 100 mls/hr DAILY IV 11/14/24 10:00 11/23/24 07:58 100 MLS/HR Lorazepam 1 mg Q4HP PRN IV 11/14/24 16:15 11/18/24 20:05 1 MG Albuterol 2.5 mg Q3HPRN PRN NEB 11/18/24 10:30 Acetylcysteine 100 mg Q6HR NEB 11/18/24 12:00 11/23/24 18:34 100 MG Epoetin Roger-epbx 10,000 unit MWF@2100 SC 11/19/24 21:00 11/21/24 21:14 10,000 UNIT Lactated Ringer's 1,000 ml @ 60 mls/hr [id number] IV 11/20/24 08:30 11/23/24 15:00 60 MLS/HR Linezolid 300 ml @ 150 mls/hr Q12HR@0800,2000 IV 11/20/24 08:46 11/23/24 20:00 150 MLS/HR Pantoprazole Sodium 40 mg BID@0600,1700 PO 11/20/24 17:00 11/23/24 17:13 40 MG Labetalol HCl 100 mg Q12HR GT 11/20/24 10:00 11/23/24 08:08 100 MG Enoxaparin Sodium 40 mg DAILY SC 11/22/24 10:00 11/23/24 08:04 40 MG Enteral Nutritional Formula 1,000 ml 60ML/HR GT 11/22/24 11:00 laboratory and microbiology Laboratory Tests 11/23/24 08:52 11/22/24 02:48 Test 11/22/24 02:48 Range/Units Serum Glucose 78 74-106 mg/dL Problem List/Assessment/Plan Problems(with codes): (1) Elevated liver enzymes (2) Cholecystitis (3) TIA (transient ischemic attack) (4) Troponin level elevated (5) Shock (6) Altered mental status Problem List/Assessment/Plan Patient is a 48 year old male with a past medical history of stroke , hypertension , emphysema. patient was brought in by family due to mental status . Patient was having constipation for several days prior to admission . CT abdomen and pelvis showed a perforated viscus and surgery was consulted . Xlab was done , patient was found to have pepticles for perforation at levels of pylori of about 6 cm . Surgical corrected was performed . 3 catheters were placed and patient was admitted to ICU and put on pressers and IV antibiotics. liver ultrasound showed gallbladder wall thickening and pericolic cystitis edema consistent with acute cholecystitis due to hemodynamic instability . percutaneous cholecystostomy was placed by IR rather than surgical drainage . patient developed multifocal pneumonia and covered by antibiotics and patient underwent thoracentesis as well as chest tube placement . chest tube has been removed , right sided cholecystostomy tube remains in place . patient was trachea on october 27 2024 . Infectious disease was consulted due to blood cultures being persistently positive for peña albakins . patient has been on micafungin and meropenem . Patient is febrile with a T-max of 103 , with worsening anemia . Hemoglobin is 6.6 and received a blood transfusion . Likely the etiology of persistent fungemia include line related as patient has a midline placed white patient was actively fungemic . Would also be concerned about untreated source of bowel leak . endocarditis also remains a small possibility as well Last Ct abdomen and pelvis was done with contrast and showed no evidence of bowel leak 11/11: unable to communicate besides yes and no . on trach collar . 150ccs of cholecystostomy drainage . 11/12: blood cultures came back negative x1 , will need a minimum o f14 days micafungin . remains 8 liters trach collar with ongoing significant drainage through the cholecystostomy tube 11/13: not having abdominal pains . blood cultures were positive for yeast . midline has been removed . TTE is negative 11/14: midline was removed . repeat blood cultures are no growth to date 11/15: blood cultures remain negative . whitecount has normalized and off all pressers and breathing well on 8 liters trach collar 11/16: blood cultures remain negative , drainage from abdominal drain is slowing as well 11/17: chest xray shows patchy bilateral airspace disease . whitecount remains normal 11/18: blood pressers are stable 11/19: potassium is low at times 11/20: most likely explanation for fevers and leukocytosis is aspiration pneumonitis 11/21: chest xray shows bilateral airspace disease 11/22: doing well on room air , no signs of pneumonia . sputum culture is showing normal dominic Plan : - Stop oral linezolid - plan to stop ertapenem in 1-2 days - continue micafungin until 11/28/24 - f/u on pending respiratory cultures - continue envance for now - ongoing infection is unlikely at this point so long as drain remains in place - would consider repeat imaging once drain has been removed given high amounts of drain thats persisted for over 2 months now - repeat blood cultures after midline is removed - recommend Barrios exchange of the urine catheter - avoid unnecessary TPN and steroid use Authorized and Performed by: Jessica Woodard Total critical care time: Approximately 76 minutes Due to a high probability of clinically significant, life threatening deterioration, the patient required my highest level of preparedness to intervene emergently and I personally spent this critical care time directly and personally managing the patient. This critical care time included obtaining a history; examining the patient; pulse oximetry; ordering and review of studies; arranging urgent treatment with development of a management plan; evaluation of patient's response to treatment; frequent reassessment; and, discussions with other providers. This critical care time was performed to assess and manage the high probability of imminent, life-threatening deterioration that could result in multi-organ failure. It was exclusive of separately billable procedures and treating other patients and teaching time. Plan discussed with: Other Dietary Evaluation Review Comments: 1. Continue TPN to meet at least 75% estimated needs 2. Continue current POC Expected Outcomes/Goals: FU 2-3 days to meet adequate energy & protein within 7 days of NPO Protein Calorie Malnutrition: Severe (rn) CC Plasma Assessment Blood Product Administration S: [id number] JESSICA WOODARD MD Nov 23, 2024 21:38
--- NOTE | 2024-11-23 21:38 | DVHPN2 ---
Consult Progress Note Date Seen: Nov 21, 2024 Subjective Patient reports: Feels better (no fevers , back down to 5 liters trach collar . not SOB , lungs sound clear ) Objective vital signs Vital Sign Date Time Temp Pulse Resp B/P (MAP) Pulse Ox O2 Delivery O2 Flow Rate FiO2 11/23/24 20:00 98.0 90 22 143/70 (94) 94 98.0 11/23/24 18:33 Room Air 0.0 11/23/24 18:33 21 Total Intake and Output 11/22/24 11/22/24 11/23/24 15:00 23:00 07:00 Intake Total 930 ml 690 ml 690 ml Output Total 1250 ml 750 ml Balance 930 ml -560 ml -60 ml medications Current Medications Medications Dose Ordered Sig/Wally Route Start Time Stop Time Status Last Admin Dose Admin Ondansetron HCl 4 mg Q4HP PRN IV 10/04/24 11:45 Morphine Sulfate 2 mg Q4HPRN PRN IV 10/04/24 11:45 Cancel Nitroglycerin 0.4 mg Q5MINP PRN SL 10/04/24 11:45 Morphine Sulfate 2 mg Q30M PRN IV 10/04/24 11:45 Cancel Lorazepam 50 mg/ Sodium Chloride 50 ml @ 1 mls/hr Q24H IV 10/04/24 18:15 Cancel Amino Acids 0 ml @ 0 mls/hr PER PHARMACY IV 10/05/24 14:30 UNV Meropenem 50 ml @ 17 mls/hr Q12HR IV 10/07/24 10:00 UNV Levalbuterol HCl 0.625 mg Q6HR NEB 10/13/24 12:00 11/23/24 18:33 0.625 MG Ipratropium [place] 0.5 mg Q6HR NEB 10/13/24 12:00 11/23/24 18:34 0.5 MG Morphine Sulfate 2 mg Q4HPRN PRN IV 10/21/24 11:30 11/10/24 05:15 2 MG Acetaminophen 650 mg Q6HP PRN GT 10/22/24 09:00 11/10/24 08:08 650 MG Sucralfate 1 gm BID@0600,2200 GT 10/28/24 22:00 11/23/24 06:00 1 GM Pantoprazole Sodium 50 ml @ 0 mls/hr Q0M IV 10/28/24 16:15 Cancel Sodium Chloride 10 ml QSHIFT@10,22 IV 10/31/24 22:00 11/23/24 08:03 10 ML Micafungin Sodium 100 mg/Sodium Chloride 100 ml @ 100 mls/hr DAILY IV 11/02/24 10:00 11/23/24 08:03 100 MLS/HR Acetaminophen/ Hydrocodone Bitart 1 tab Q4HPRN PRN PO 11/06/24 09:15 Lactulose 30 ml DAILY JT 11/11/24 10:00 11/23/24 08:04 30 ML Amlodipine Besylate 10 mg DAILY GT 11/11/24 10:00 11/23/24 08:08 10 MG Labetalol HCl 10 mg Q2HPRN PRN IV 11/12/24 17:00 11/17/24 19:40 10 MG Hydralazine HCl 50 mg Q8HR GT 11/13/24 14:00 11/23/24 15:02 50 MG Clonidine HCl 0.1 mg Q7D TD 11/13/24 07:00 11/20/24 08:12 0.1 MG Metoclopramide HCl 5 mg Q8HR IV 11/13/24 14:00 11/23/24 15:02 5 MG Ertapenem 1 gm/ Sodium Chloride 50 ml @ 100 mls/hr DAILY IV 11/14/24 10:00 11/23/24 07:58 100 MLS/HR Lorazepam 1 mg Q4HP PRN IV 11/14/24 16:15 11/18/24 20:05 1 MG Albuterol 2.5 mg Q3HPRN PRN NEB 11/18/24 10:30 Acetylcysteine 100 mg Q6HR NEB 11/18/24 12:00 11/23/24 18:34 100 MG Epoetin Roger-epbx 10,000 unit MWF@2100 SC 11/19/24 21:00 11/21/24 21:14 10,000 UNIT Lactated Ringer's 1,000 ml @ 60 mls/hr [id number] IV 11/20/24 08:30 11/23/24 15:00 60 MLS/HR Linezolid 300 ml @ 150 mls/hr Q12HR@0800,2000 IV 11/20/24 08:46 11/23/24 20:00 150 MLS/HR Pantoprazole Sodium 40 mg BID@0600,1700 PO 11/20/24 17:00 11/23/24 17:13 40 MG Labetalol HCl 100 mg Q12HR GT 11/20/24 10:00 11/23/24 08:08 100 MG Enoxaparin Sodium 40 mg DAILY SC 11/22/24 10:00 11/23/24 08:04 40 MG Enteral Nutritional Formula 1,000 ml 60ML/HR GT 11/22/24 11:00 laboratory and microbiology Laboratory Tests 11/23/24 08:52 11/22/24 02:48 Test 11/22/24 02:48 Range/Units Serum Glucose 78 74-106 mg/dL Problem List/Assessment/Plan Problems(with codes): (1) Elevated liver enzymes (2) Cholecystitis (3) TIA (transient ischemic attack) (4) Shock (5) Troponin level elevated (6) Altered mental status (7) Severe anemia Problem List/Assessment/Plan Patient is a 48 year old male with a past medical history of stroke , hypertension , emphysema. patient was brought in by family due to mental status . Patient was having constipation for several days prior to admission . CT abdomen and pelvis showed a perforated viscus and surgery was consulted . Xlab was done , patient was found to have pepticles for perforation at levels of pylori of about 6 cm . Surgical corrected was performed . 3 catheters were placed and patient was admitted to ICU and put on pressers and IV antibiotics. liver ultrasound showed gallbladder wall thickening and pericolic cystitis edema consistent with acute cholecystitis due to hemodynamic instability . percutaneous cholecystostomy was placed by IR rather than surgical drainage . patient developed multifocal pneumonia and covered by antibiotics and patient underwent thoracentesis as well as chest tube placement . chest tube has been removed , right sided cholecystostomy tube remains in place . patient was trachea on october 27 2024 . Infectious disease was consulted due to blood cultures being persistently positive for peña albakins . patient has been on micafungin and meropenem . Patient is febrile with a T-max of 103 , with worsening anemia . Hemoglobin is 6.6 and received a blood transfusion . Likely the etiology of persistent fungemia include line related as patient has a midline placed white patient was actively fungemic . Would also be concerned about untreated source of bowel leak . endocarditis also remains a small possibility as well Last Ct abdomen and pelvis was done with contrast and showed no evidence of bowel leak 11/11: unable to communicate besides yes and no . on trach collar . 150ccs of cholecystostomy drainage . 11/12: blood cultures came back negative x1 , will need a minimum o f14 days micafungin . remains 8 liters trach collar with ongoing significant drainage through the cholecystostomy tube 11/13: not having abdominal pains . blood cultures were positive for yeast . midline has been removed . TTE is negative 11/14: midline was removed . repeat blood cultures are no growth to date 11/15: blood cultures remain negative . whitecount has normalized and off all pressers and breathing well on 8 liters trach collar 11/16: blood cultures remain negative , drainage from abdominal drain is slowing as well 11/17: chest xray shows patchy bilateral airspace disease . whitecount remains normal 11/18: blood pressers are stable 11/19: potassium is low at times 11/20: most likely explanation for fevers and leukocytosis is aspiration pneumonitis 11/21: chest xray shows bilateral airspace disease Plan : - continue oral linezolid - f/u and see if linezolid needs to be continued - f/u on pending respiratory cultures - continue envance for now - check sputum culture - stop ertapenem treatment if leukocytosis remains resolved - ongoing infection is unlikely at this point so long as drain remains in place - would consider repeat imaging once drain has been removed given high amounts of drain thats persisted for over 2 months now - repeat blood cultures after midline is removed - continue micafungin for another 14 days - recommend Barrios exchange of the urine catheter - avoid unnecessary TPN and steroid use Authorized and Performed by: Jessica Woodard Total critical care time: Approximately 76 minutes Due to a high probability of clinically significant, life threatening deterioration, the patient required my highest level of preparedness to intervene emergently and I personally spent this critical care time directly and personally managing the patient. This critical care time included obtaining a history; examining the patient; pulse oximetry; ordering and review of studies; arranging urgent treatment with development of a management plan; evaluation of patient's response to treatment; frequent reassessment; and, discussions with other providers. This critical care time was performed to assess and manage the high probability of imminent, life-threatening deterioration that could result in multi-organ failure. It was exclusive of separately billable procedures and treating other patients and teaching time. Plan discussed with: Other Dietary Evaluation Review Comments: 1. Continue TPN to meet at least 75% estimated needs 2. Continue current POC Expected Outcomes/Goals: FU 2-3 days to meet adequate energy & protein within 7 days of NPO Protein Calorie Malnutrition: Severe (rn) CC Plasma Assessment Blood Product Administration S: [id number] JESSICA WOODARD MD Nov 23, 2024 21:37
--- NOTE | 2024-11-23 23:59 | DVHPN2 ---
Progress Note - Dictate Date Seen: Nov 23, 2024 Has the PT tested + for MRSA If YES, has PT been informed?: No Medical Necessity Reason Pt with a Central, PICC or Fol: Yes The following are medically ne: Central Line, Gómez Catheter Reason for gómez catheter: Strict I&O Subjective Patient seen and examined at bedside. S/p trach. Currently breathing on room air. Overnight events reviewed. vital signs Vital Sign Date Time Temp Pulse Resp B/P (MAP) Pulse Ox O2 Delivery O2 Flow Rate FiO2 11/23/24 22:25 89 172/82 11/23/24 22:00 21 94 T-piece 0 N/A 11/23/24 20:00 98.0 98.0 Total Intake and Output 11/22/24 11/22/24 11/23/24 15:00 23:00 07:00 Intake Total 930 ml 690 ml 690 ml Output Total 1250 ml 750 ml Balance 930 ml -560 ml -60 ml medications Current Medications Medications Dose Ordered Sig/Wally Route Start Time Stop Time Status Last Admin Dose Admin Ondansetron HCl 4 mg Q4HP PRN IV 10/04/24 11:45 Morphine Sulfate 2 mg Q4HPRN PRN IV 10/04/24 11:45 Cancel Nitroglycerin 0.4 mg Q5MINP PRN SL 10/04/24 11:45 Morphine Sulfate 2 mg Q30M PRN IV 10/04/24 11:45 Cancel Lorazepam 50 mg/ Sodium Chloride 50 ml @ 1 mls/hr Q24H IV 10/04/24 18:15 Cancel Amino Acids 0 ml @ 0 mls/hr PER PHARMACY IV 10/05/24 14:30 UNV Meropenem 50 ml @ 17 mls/hr Q12HR IV 10/07/24 10:00 UNV Levalbuterol HCl 0.625 mg Q6HR NEB 10/13/24 12:00 11/23/24 18:33 0.625 MG Ipratropium [place] 0.5 mg Q6HR NEB 10/13/24 12:00 11/23/24 18:34 0.5 MG Morphine Sulfate 2 mg Q4HPRN PRN IV 10/21/24 11:30 11/10/24 05:15 2 MG Acetaminophen 650 mg Q6HP PRN GT 10/22/24 09:00 11/10/24 08:08 650 MG Sucralfate 1 gm BID@0600,2200 GT 10/28/24 22:00 11/23/24 22:25 1 GM Pantoprazole Sodium 50 ml @ 0 mls/hr Q0M IV 10/28/24 16:15 Cancel Sodium Chloride 10 ml QSHIFT@10,22 IV 10/31/24 22:00 11/23/24 22:26 10 ML Micafungin Sodium 100 mg/Sodium Chloride 100 ml @ 100 mls/hr DAILY IV 11/02/24 10:00 11/23/24 08:03 100 MLS/HR Acetaminophen/ Hydrocodone Bitart 1 tab Q4HPRN PRN PO 11/06/24 09:15 Lactulose 30 ml DAILY JT 11/11/24 10:00 11/23/24 08:04 30 ML Amlodipine Besylate 10 mg DAILY GT 11/11/24 10:00 11/23/24 08:08 10 MG Labetalol HCl 10 mg Q2HPRN PRN IV 11/12/24 17:00 11/17/24 19:40 10 MG Hydralazine HCl 50 mg Q8HR GT 11/13/24 14:00 11/23/24 22:24 50 MG Clonidine HCl 0.1 mg Q7D TD 11/13/24 07:00 11/20/24 08:12 0.1 MG Metoclopramide HCl 5 mg Q8HR IV 11/13/24 14:00 11/23/24 15:02 5 MG Lorazepam 1 mg Q4HP PRN IV 11/14/24 16:15 11/18/24 20:05 1 MG Albuterol 2.5 mg Q3HPRN PRN NEB 11/18/24 10:30 Acetylcysteine 100 mg Q6HR NEB 11/18/24 12:00 11/23/24 18:34 100 MG Epoetin Roger-epbx 10,000 unit MWF@2100 SC 11/19/24 21:00 11/21/24 21:14 10,000 UNIT Lactated Ringer's 1,000 ml @ 60 mls/hr [id number] IV 11/20/24 08:30 11/23/24 15:00 60 MLS/HR Pantoprazole Sodium 40 mg BID@0600,1700 PO 11/20/24 17:00 11/23/24 17:13 40 MG Labetalol HCl 100 mg Q12HR GT 11/20/24 10:00 11/23/24 22:25 100 MG Enoxaparin Sodium 40 mg DAILY SC 11/22/24 10:00 11/23/24 08:04 40 MG Enteral Nutritional Formula 1,000 ml 60ML/HR GT 11/22/24 11:00 objective Gen.: Patient lying in bed in no apparent distress. S/p trach. Breathing on room air. Head: Normocephalic, atraumatic. Eyes: EOMI/PERRLA. Ears: Normal hearing. Normal anatomy. Neck/trachea: Trach in place. Nose: Normal external anatomy. Mouth: Moist mucous membranes. Chest: Decreased air entry bilaterally. No wheezing or rhonchi. Cardiovascular: Positive S1, positive S2. Regular rate and rhythm. Abdomen: Positive bowel sounds in all 4 quadrants. Soft, non-tender, non- distended. : Deferred. Rectal: Deferred. Skin: Warm, dry. Intact. Extremities: 2+ radial pulses bilaterally. No lower extremity edema. Neuro: Awake, alert, oriented x3. No gross motor or sensory deficits. Cranial nerves II through XII intact. Gait not assessed. laboratory and microbiology Laboratory Tests 11/23/24 08:52 11/22/24 02:48 Test 11/22/24 02:48 Range/Units Serum Glucose 78 74-106 mg/dL Assessment/Plan Impression: Acute hypoxic respiratory failure S/p tracheostomy Septic shock Perforated viscus s/p repair Nicotine dependence Events: S/p tracheostomy Currently breathing on room air. Remains trached with 8.0 cuffed Shiley Trach collar/T-piece [place] valve once available Consider downsizing trach. Trach care per RT. IV fluids with LR at 60 ml/hr. KUB reviewed, Dobbhoff in place. Plan to restart tube feedings. Continue antifungal Complete course of antibiotics Repeat blood cultures showed no growth x72 hours Head of bed elevation Aspiration precautions Monitor Hgb Protonix BID for GI ppx GI recs appreciated. Monitor drain output. CT chest, abdomen and pelvis on 10/19/24 revealed right lower lobe consolidation. Small right pleural effusion with pleural thickening. This could represent pneumonia with parapneumonic effusion. Trace left pleural effusion and left lower lobe consolidation. Labs and imaging reviewed Plan: S/p tracheostomy Supplemental oxygen PRN Titrate to maintain sats above 92% Continue support on vent Place on full vent support if any distress. Trach collar Trach care per RT. Follow up with General Surgery Continue antibiotics and antifungals F/u cultures Bronchodilators Complete abx course Monitor Hgb Protonix BID for GI ppx Monitor renal function Monitor electrolytes Supplement as needed HD per nephrology Nutritional support DVT prophylaxis Prognosis: Guarded given patient's multiple co-morbidities. Rest of plan per hospitalist and other consultants. Thank you, SENIOR PROJECT LEADER/TEAM LEAD Werner, for allowing me to participate in this patient's care. Further recommendations will depend on the patient's clinical course. Please do not hesitate to contact me if you have any questions or concerns. This medical document was created using an electronic medical record system with [employer] dictation system. Although these documentations are being carefully reviewed, there may still be some phonetic and typographical changes. The errors are purely typographical, due to imperfection on the software program, and do not reflect any compromise in the patient's medical care. Dietary Evaluation Review Comments: 1. Continue TPN to meet at least 75% estimated needs 2. Continue current POC Expected Outcomes/Goals: FU 2-3 days to meet adequate energy & protein within 7 days of NPO Protein Calorie Malnutrition: Severe (rn) Plan discussed with: Patient, Other (JASPER Molina) CC Plasma Assessment Blood Product Administration S: [id number] ARIE LOPEZ MD Nov 23, 2024 23:59
[2024-11-24] VITALS (47 sets, daily range): BP systolic 109–180; BP diastolic 49–97; PULSE 72–106; RESP 14–26; TEMP 97.7–98.4; O2SAT 93–100
[2024-11-24 04:11] LABS: Hematocrit 27.4 % (41.0-53.0); Hemoglobin 8.8 g/dL (13.5-17.5); Mean Corpuscular Hemoglobin 28.2 pg (28.0-32.0); Mean Corpuscular Volume 87.7 fL (80.0-100.0); Nucleated Red Blood Cells % 0.1 %
[2024-11-24 04:14] LABS: Anion Gap 8 (5-15); Carbon Dioxide 24 mmol/L (20-31); Chloride 106 mmol/L (98-107); Potassium 4.2 mmol/L (3.5-5.1); Sodium 138 mmol/L (136-145)
[2024-11-24 04:20] LABS: BUN/Creatinine Ratio 8.2 (10.0-20.0); Blood Urea Nitrogen 10 mg/dL (9-23); Glucose 87 mg/dL (74-106)
[2024-11-24 04:40] LABS: Calcium 8.1 mg/dL (8.7-10.4)
--- NOTE | 2024-11-24 08:58 | DVHPN2 ---
Subjective Patient is alert following commands. Denies any symptoms. Reviewed: Care Plan, H&P, Labs, Medications, Previous Orders, Radiology, Other (Consultants) Changes from previous H/P or p: No Changes General: Per HPI Objective Vitals Vital Signs Date Time Temp Pulse Resp B/P (MAP) Pulse Ox O2 Delivery O2 Flow Rate FiO2 11/24/24 08:01 98.0 80 17 109/70 (83) 96 98.0 11/24/24 08:00 T-piece 0 N/A Intake/Output Intake and Output 11/24/24 07:00 Intake Total 3300 ml Output Total 2650 ml Balance 650 ml IV Total 2920 ml Tube Feeding 380 ml Output Urine Total 2350 ml Drainage Total 300 ml # Bowel Movements 4 General Appearance: Alert, Oriented X3, Cooperative, mild distress, Other HEENT: Atraumatic, PERRLA Lungs: Clear to auscultation, Normal air movement, Other Cardiovascular: Normal S1, Normal S2, Other Abdomen: Other Extremities: Normal pulses Neuro: Cranial nerves 3-12 NL, Other Skin: Dry, Intact, Wounds, Other Psych/Mental Status: Other Medications Current Medications Medications Dose Ordered Sig/Wally Route Start Time Stop Time Status Last Admin Dose Admin Ondansetron HCl 4 mg Q4HP PRN IV 10/04/24 11:45 Morphine Sulfate 2 mg Q4HPRN PRN IV 10/04/24 11:45 Cancel Morphine Sulfate 2 mg Q30M PRN IV 10/04/24 11:45 Cancel Lorazepam 50 mg/ Sodium Chloride 50 ml @ 1 mls/hr Q24H IV 10/04/24 18:15 Cancel Amino Acids 0 ml @ 0 mls/hr PER PHARMACY IV 10/05/24 14:30 UNV Meropenem 50 ml @ 17 mls/hr Q12HR IV 10/07/24 10:00 UNV Levalbuterol HCl 0.625 mg Q6HR NEB 10/13/24 12:00 11/24/24 06:15 0.625 MG Ipratropium [place] 0.5 mg Q6HR NEB 10/13/24 12:00 11/24/24 06:15 0.5 MG Morphine Sulfate 2 mg Q4HPRN PRN IV 10/21/24 11:30 11/10/24 05:15 2 MG Acetaminophen 650 mg Q6HP PRN GT 10/22/24 09:00 11/10/24 08:08 650 MG Sucralfate 1 gm BID@0600,2200 GT 10/28/24 22:00 11/24/24 05:56 1 GM Pantoprazole Sodium 50 ml @ 0 mls/hr Q0M IV 10/28/24 16:15 Cancel Sodium Chloride 10 ml QSHIFT@10,22 IV 10/31/24 22:00 11/23/24 22:26 10 ML Micafungin Sodium 100 mg/Sodium Chloride 100 ml @ 100 mls/hr DAILY IV 11/02/24 10:00 11/23/24 08:03 100 MLS/HR Acetaminophen/ Hydrocodone Bitart 1 tab Q4HPRN PRN PO 11/06/24 09:15 Amlodipine Besylate 10 mg DAILY GT 11/11/24 10:00 11/23/24 08:08 10 MG Labetalol HCl 10 mg Q2HPRN PRN IV 11/12/24 17:00 11/17/24 19:40 10 MG Hydralazine HCl 50 mg Q8HR GT 11/13/24 14:00 11/24/24 05:56 50 MG Clonidine HCl 0.1 mg Q7D TD 11/13/24 07:00 11/20/24 08:12 0.1 MG Lorazepam 1 mg Q4HP PRN IV 11/14/24 16:15 11/18/24 20:05 1 MG Albuterol 2.5 mg Q3HPRN PRN NEB 11/18/24 10:30 Pantoprazole Sodium 40 mg BID@0600,1700 PO 11/20/24 17:00 11/23/24 17:13 40 MG Labetalol HCl 100 mg Q12HR GT 11/20/24 10:00 11/23/24 22:25 100 MG Enoxaparin Sodium 40 mg DAILY SC 11/22/24 10:00 11/23/24 08:04 40 MG Enteral Nutritional Formula 1,000 ml 60ML/HR GT 11/22/24 11:00 Lactated Ringer's 1,000 ml @ 30 mls/hr Q24H IV 11/24/24 08:45 UNV Lactulose 30 ml Q12HP PRN JT 11/24/24 09:00 UNV Metoclopramide HCl 10 mg Q8HR GT 11/24/24 14:00 11/26/24 13:59 UNV Laboratory Results Laboratory Tests 11/24/24 02:51 Chemistry Test 11/23/24 08:57 11/24/24 02:51 Magnesium Level 1.8 mg/dL (1.6-2.6) Calcium Level 8.1 mg/dL (8.7-10.4) L Urinalysis Test 10/05/24 15:05 10/26/24 20:33 11/07/24 12:40 Urine Mucus Few (None Seen) Urine Color Light-yellow (Yellow) Urine Clarity Clear (Clear) Urine pH 7.0 (5.0-9.0) Urine Specific [place] 1.014 (1.001-1.035) Urine Protein 1+ (Negative) H Urine Ketones Negative (Negative) Urine Blood 1+ /uL (Negative) H Urine Nitrite Negative (Negative) Urine Bilirubin Negative (Negative) Urine Urobilinogen Normal mg/dL (Negative) Urine Leukocyte Esterase Negative /uL (Negative) Urine RBC 1 /hpf (0 - 3) Urine Microscopic WBC 3 /HPF (0-3) Urine Squamous Epithelial Cells None seen /hpf (<5) Urine Bacteria Few /hpf (None Seen) H Urine Glucose Normal mg/dL (Normal) Urine Creatinine 64.63 mg/dL (30.0-125.0) Urine Protein/Creatinine Ratio 3.11 Urine Sodium 34 mmol/L (40-220) L Urine Total Protein 200.7 mg/dL (1-14) H Microbiology Microbiology Date/Time Source Procedure Growth Status 11/20/24 09:56 Sputum Gram Stain - Final Complete 11/20/24 09:56 Sputum Respiratory Culture - Final Complete 11/20/24 08:16 Blood Blood Culture - Preliminary NO GROWTH AFTER 72 HOURS OF INCUBATION. Resulted 11/10/24 22:44 Voided Urine Urine Culture - Final Complete 10/18/24 09:21 Pleural Fluid Gram Stain - Final Complete 10/18/24 09:21 Pleural Fluid Body Fluid Culture - Final Complete 10/04/24 17:10 Nose MRSA Screen - Final Complete Labs and/or images reviewed: Labs reviewed by me, Image(s) reviewed by me Assessment/Plan Assessment/Plan Impression: -severe septic shock -pneumoperitoneum secondary to perforated gastric ulcer -acute kidney injury, hemodynamically mediated, probable VMN -acute hypoxic respiratory failure -shock liver -nicotine dependence -history of CVA -right upper extremity DVT -multifocal pneumonia, probable Gram-positive/Gram-negative etiology -anemia secondary to nutrition, renal failure -bilateral pleural effusions -small left pneumothorax -Failure of ventilator weaning, status post tracheostomy -fungemia Plan: Events: No events overnight. Blood cultures negative x2 different draws. Off mechanical ventilation. Dobbhoff tube and pyloric sphincter. Tolerating tube feedings. Positive bowel movements. Add of bed with PT. -continue current antihypertensives -GI consultation: Discussed case. -antibiotic therapy: Currently on micafungin. White blood cell count. Discontinue micafungin if cleared by Infectious Disease -increase IV fluids -we will reassess with surgical team when appropriate for removing cholecystectomy tube/cholecystectomy -physical therapy -repeat labs in am Critical care time spent with patient discussing and formulating plan of care: 40 minutes. This does not include time spent performing procedures. This medical document was created using an electronic medical record system with [employer] dictation system. Although this document has been carefully reviewed, there may still be some phonetic and typographical errors. These areas are purely typographical due to imperfections of the software programs, and do not reflect any compromise in the patient's medical care. Plan discussed with: Patient, Other (RN) My Orders Orders - CHEYENNE PIKE NP Procedure Category Date Status Time * Swallow Request ST 11/24/24 Transmitted 08:07 Lactated Ringer's PHA 11/24/24 Logged 08:45 Lactulose Oral PHA 11/24/24 Logged 09:00 Metoclopramide Oral PHA 11/24/24 Logged Soln (Reglan Oral So 14:00 Date of Service: Nov 24, 2024 Billing Provider: CHEYENNE PIKE NP Common Visit Codes: 57841-[id number] CARE 30-74 MIN CHEYENNE PIKE NP Nov 24, 2024 08:58
[2024-11-24] MEDS: LACTATED RINGER'S 1,000 ML IV SCH (09:27)
--- NOTE | 2024-11-24 09:58 | DVHPN2 ---
Progress Note - Dictate Date Seen: Nov 24, 2024 Has the PT tested + for MRSA If YES, has PT been informed?: No Medical Necessity Reason Pt with a Central, PICC or Fol: Yes The following are medically ne: Central Line, Gómez Catheter Reason for gómez catheter: Strict I&O Subjective Mr. Perez is a 48 years old right-handed gentleman with a history of hypertension, dyslipidemia, multiple strokes, he was brought to the [facility] on 10/04/2024 with a chief company of recurrent syncope, in the hospital, the patient was found to have perforated viscus, and he went through surgical treatment, he was hospital course has been complicated with sepsis, septic shock, pneumonia, right upper extremity DVT. I saw him on 08/23/2023 for TIA I have seen and examined the patient, discussed with his nurse. Keeps improving, physically stronger, he is able to talk a little bit. good social skills, No abdominal pain Afebrile Blood culture, Urinalysis, 08/22/2023: Unremarkable UDS, 08/22/2023: Negative WBC/Hb/PLT'/MCV, 08/22/2023: 10.8/13.1/184/87.4, 10/28/2024: 15/8/487/89.3 10/31/2024: 24.3/9.1/77/88.4 Troponin 1 high-sensitivity, 08/22/2023: 336, 273/300 BUNs/CR, 08/22/2023: 15/1.45 10/31/2024: Two 9/2.42 GFR, 08/22/2023: 59 Liver function test, 10/04/2024: Unremarkable TBI/AST/ALT/AP, 10/04/2024: 0.6/410/335/31, 10/05/2024: 1.3/582/423/39, 10/31/2024: 3.6/54/98/117 TG/CHO L/LDL/HDL, 08/2023: 136/166/111/39 TSH, 08/23/2023: 4.25 Extremity venous study, right arm, 11/09/2024: Thrombus is seen in the cephalic vein in the forearm. DONAL, 08/23/2023: 1. No evidence of intracardiac source of embolus in the study conducted today. 2. Normal valves without significant masses or change vegetations were discernible. 3. No evidence of intra-atrial shunting by bubble study and color Doppler. 4. Mild atherosclerotic plaquing was visualized in the arch of the aorta without evidence of dissection in the visualized part CT head, 10/24/2024: 1. No intracranial hemorrhage or mass effect. 2. [id number] chronic microvascular ischemic changes. 3. Old bilateral basal ganglia lacunar infarcts. 4. Small bilateral mastoid effusions. CT abdomen/pelvis, 10/04/2024: 1. Extensive intra-abdominal free air concerning for perforated viscus. Surgical consultation is recommended. 2. Enteritis is seen in multiple loops of small bowel in the left hemiabdomen. 3. Moderate abdominopelvic ascites. 4. Small right pleural effusion. CTA neck, head, 08/22/2023:1. CTA head demonstrates no evidence of large vessel occlusion, aneurysm, or significant stenosis. 2. CTA neck demonstrates no evidence of carotid or vertebral dissection or significant stenosis. 3. No noncontrast CT head was performed. 4. Additional findings as detailed above MRI head, 08/23/2023: No acute infarct, intracranial hemorrhage, mass effect, or hydrocephalus. Moderate periventricular and deep subcortical white matter T2 hyperintensities which are nonspecific, but most likely related to sequela of chronic microvascular ischemic changes (I have reviewed the MRI films with our in-house radiologist, Dr. Black, the patient has bilateral multiple subacute/chronic infarcts) MRI head, 11/01/2024: No acute cerebrovascular ischemia. [id number] chronic microvascular ischemic changes. Bilateral mastoid effusions. Old bilateral basal ganglia / lopes radiata infarcts. vital signs Vital Sign Date Time Temp Pulse Resp B/P (MAP) Pulse Ox O2 Delivery O2 Flow Rate FiO2 11/24/24 09:26 83 143/66 11/24/24 08:01 98.0 17 96 98.0 11/24/24 08:00 T-piece 0 N/A Total Intake and Output 11/23/24 11/23/24 11/24/24 15:00 23:00 07:00 Intake Total 1420 ml 1120 ml 760 ml Output Total 1500 ml 1150 ml Balance 1420 ml -380 ml -390 ml medications Current Medications Medications Dose Ordered Sig/Wally Route Start Time Stop Time Status Last Admin Dose Admin Ondansetron HCl 4 mg Q4HP PRN IV 10/04/24 11:45 Morphine Sulfate 2 mg Q4HPRN PRN IV 10/04/24 11:45 Cancel Morphine Sulfate 2 mg Q30M PRN IV 10/04/24 11:45 Cancel Lorazepam 50 mg/ Sodium Chloride 50 ml @ 1 mls/hr Q24H IV 10/04/24 18:15 Cancel Amino Acids 0 ml @ 0 mls/hr PER PHARMACY IV 10/05/24 14:30 UNV Meropenem 50 ml @ 17 mls/hr Q12HR IV 10/07/24 10:00 UNV Levalbuterol HCl 0.625 mg Q6HR NEB 10/13/24 12:00 11/24/24 06:15 0.625 MG Ipratropium [place] 0.5 mg Q6HR NEB 10/13/24 12:00 11/24/24 06:15 0.5 MG Morphine Sulfate 2 mg Q4HPRN PRN IV 10/21/24 11:30 11/10/24 05:15 2 MG Acetaminophen 650 mg Q6HP PRN GT 10/22/24 09:00 11/10/24 08:08 650 MG Sucralfate 1 gm BID@0600,2200 GT 10/28/24 22:00 11/24/24 05:56 1 GM Pantoprazole Sodium 50 ml @ 0 mls/hr Q0M IV 10/28/24 16:15 Cancel Sodium Chloride 10 ml QSHIFT@10,22 IV 10/31/24 22:00 11/24/24 09:28 10 ML Micafungin Sodium 100 mg/Sodium Chloride 100 ml @ 100 mls/hr DAILY IV 11/02/24 10:00 11/24/24 09:25 100 MLS/HR Acetaminophen/ Hydrocodone Bitart 1 tab Q4HPRN PRN PO 11/06/24 09:15 Amlodipine Besylate 10 mg DAILY GT 11/11/24 10:00 11/24/24 09:26 10 MG Labetalol HCl 10 mg Q2HPRN PRN IV 11/12/24 17:00 11/17/24 19:40 10 MG Hydralazine HCl 50 mg Q8HR GT 11/13/24 14:00 11/24/24 05:56 50 MG Clonidine HCl 0.1 mg Q7D TD 11/13/24 07:00 11/20/24 08:12 0.1 MG Lorazepam 1 mg Q4HP PRN IV 11/14/24 16:15 11/18/24 20:05 1 MG Albuterol 2.5 mg Q3HPRN PRN NEB 11/18/24 10:30 Pantoprazole Sodium 40 mg BID@0600,1700 PO 11/20/24 17:00 11/23/24 17:13 40 MG Labetalol HCl 100 mg Q12HR GT 11/20/24 10:00 11/24/24 09:26 100 MG Enoxaparin Sodium 40 mg DAILY SC 11/22/24 10:00 11/24/24 09:25 40 MG Enteral Nutritional Formula 1,000 ml 60ML/HR GT 11/22/24 11:00 Lactated Ringer's 1,000 ml @ 30 mls/hr Q24H IV 11/24/24 08:45 11/24/24 09:27 30 MLS/HR Lactulose 30 ml Q12HP PRN JT 11/24/24 09:00 Metoclopramide HCl 10 mg Q8HR GT 11/24/24 14:00 11/26/24 13:59 objective General: the patient is well developed and nourished. No acute distress. MENTAL STATUS: Subjective SPEECH, LANGUAGE, HIGHER CORTICAL FUNCTION: He does not vocalize/status post tracheostomy. CRANIAL NERVES:Intact visual ansari to confrontation (visual thread). Pupils are equal, round and reactive. EOMs full and conjugate. Mandibular strength intact. Facial muscles symmetrical and strength intact. SENSATION: Sensation to touch and pinprick is unremarkable MOTOR: Normal muscle bulk. No fasciculations. No abnormal movements or posturing. Muscle power in the shoulders is 3/5, elbows and the hands 4-5/5. Moves legs: 3/5 REFLEXES: Deep tendon reflexes are increased bilaterally. No pathological reflexes. CEREBELLAR/COORDINATION: Deferred GAIT/STATION: deferred laboratory and microbiology Laboratory Tests 11/24/24 02:51 Test 11/24/24 02:51 Range/Units Serum Glucose 87 74-106 mg/dL Problem List Altered mental status Metabolic encephalopathy secondary to sepsis, septic shock, pneumonia Hypoxic encephalopathy Viscus perforation status post surgical repair GI bleeding Anemia Fever/ Sepsis/septic shock Respiratory failure S/P tracheostomy Multiple strokes Secondary to history methamphetamine, cocaine, alcohol use History of alcohol abuse History of cocaine, methamphetamine abuse Hyperreflexia secondary to multiple strokes Right upper extremity DVT ICU myopathy Assessment/Plan Monitoring Supportive treatment ICU care Stabilize vitals, PRN Respiratory suppor PRN Follow-up labs IV antibiotics Protonix TPN Quit tobacco smoking No more alcohol, street drug abuse Stroke risk factors discussed GI on case Infectious disease on case Pulmonology on case Hematology on case Nephrology on case More recommended per clinical course This medical document was created using an electronic medical record system with [employer] dictation system. Although this document has been carefully reviewed, there may still be some phonetic and typographical errors. These areas are purely typographical due to imperfections of the software programs, and do not reflect any compromise in the patient's medical care. Prognosis poor Dietary Evaluation Review Comments: 1. Continue TPN to meet at least 75% estimated needs 2. Continue current POC Expected Outcomes/Goals: FU 2-3 days to meet adequate energy & protein within 7 days of NPO Protein Calorie Malnutrition: Severe (rn) Plan discussed with: Patient, Other CC Plasma Assessment Blood Product Administration S: [id number] LEANDRO BLACK MD Nov 24, 2024 09:58
[2024-11-24] MEDS: METOCLOPRAMIDE 10 mg/10ml ORAL soln GT SCH (13:48)
--- NOTE | 2024-11-24 21:29 | DVHPN2 ---
Progress Note - Dictate Date Seen: Nov 24, 2024 Has the PT tested + for MRSA If YES, has PT been informed?: No Medical Necessity Reason Pt with a Central, PICC or Fol: Yes The following are medically ne: Central Line, Gómez Catheter Reason for gómez catheter: Strict I&O Subjective Patient is awake and alert able to tolerate clear liquids This morning the patient had some tachypnea and there was concern for possible aspiration Nurse reports moderate amount of gastric residuals a couple of days ago and therefore they are not advance in the diet No active GI bleeding is reported Cholecystostomy tube is draining bile vital signs Vital Sign Date Time Temp Pulse Resp B/P (MAP) Pulse Ox O2 Delivery O2 Flow Rate FiO2 11/24/24 20:30 83 18 131/71 (91) 95 11/24/24 20:00 98.4 98.4 11/24/24 20:00 T-piece 0 N/A Total Intake and Output 11/23/24 11/23/24 11/24/24 15:00 23:00 07:00 Intake Total 1420 ml 1120 ml 760 ml Output Total 1500 ml 1150 ml Balance 1420 ml -380 ml -390 ml medications Current Medications Medications Dose Ordered Sig/Wally Route Start Time Stop Time Status Last Admin Dose Admin Ondansetron HCl 4 mg Q4HP PRN IV 10/04/24 11:45 Morphine Sulfate 2 mg Q4HPRN PRN IV 10/04/24 11:45 Cancel Morphine Sulfate 2 mg Q30M PRN IV 10/04/24 11:45 Cancel Lorazepam 50 mg/ Sodium Chloride 50 ml @ 1 mls/hr Q24H IV 10/04/24 18:15 Cancel Amino Acids 0 ml @ 0 mls/hr PER PHARMACY IV 10/05/24 14:30 UNV Meropenem 50 ml @ 17 mls/hr Q12HR IV 10/07/24 10:00 UNV Levalbuterol HCl 0.625 mg Q6HR NEB 10/13/24 12:00 11/24/24 19:01 0.625 MG Ipratropium [place] 0.5 mg Q6HR NEB 10/13/24 12:00 11/24/24 19:01 0.5 MG Morphine Sulfate 2 mg Q4HPRN PRN IV 10/21/24 11:30 11/10/24 05:15 2 MG Acetaminophen 650 mg Q6HP PRN GT 10/22/24 09:00 11/10/24 08:08 650 MG Sucralfate 1 gm BID@0600,2200 GT 10/28/24 22:00 11/24/24 05:56 1 GM Pantoprazole Sodium 50 ml @ 0 mls/hr Q0M IV 10/28/24 16:15 Cancel Sodium Chloride 10 ml QSHIFT@10,22 IV 10/31/24 22:00 11/24/24 09:28 10 ML Micafungin Sodium 100 mg/Sodium Chloride 100 ml @ 100 mls/hr DAILY IV 11/02/24 10:00 11/24/24 09:25 100 MLS/HR Acetaminophen/ Hydrocodone Bitart 1 tab Q4HPRN PRN PO 11/06/24 09:15 Amlodipine Besylate 10 mg DAILY GT 11/11/24 10:00 11/24/24 09:26 10 MG Labetalol HCl 10 mg Q2HPRN PRN IV 11/12/24 17:00 11/17/24 19:40 10 MG Hydralazine HCl 50 mg Q8HR GT 11/13/24 14:00 11/24/24 13:48 50 MG Clonidine HCl 0.1 mg Q7D TD 11/13/24 07:00 11/20/24 08:12 0.1 MG Lorazepam 1 mg Q4HP PRN IV 11/14/24 16:15 11/18/24 20:05 1 MG Albuterol 2.5 mg Q3HPRN PRN NEB 11/18/24 10:30 Labetalol HCl 100 mg Q12HR GT 11/20/24 10:00 11/24/24 09:26 100 MG Enoxaparin Sodium 40 mg DAILY SC 11/22/24 10:00 11/24/24 09:25 40 MG Enteral Nutritional Formula 1,000 ml 60ML/HR GT 11/22/24 11:00 Lactated Ringer's 1,000 ml @ 30 mls/hr Q24H IV 11/24/24 08:45 11/24/24 09:27 30 MLS/HR Lactulose 30 ml Q12HP PRN JT 11/24/24 09:00 Metoclopramide HCl 10 mg Q8HR GT 11/24/24 14:00 11/26/24 13:59 11/24/24 13:48 10 MG Omeprazole 20 mg BID@0600,1700 GT 11/25/24 06:00 objective General Appearance: Alert, awake on trach collar HEENT: Atraumatic, PERRLA;Mild pallor, NG tube tolerating enteral tube feedings Lungs: Decreased breath sounds at bases) Cardiovascular: Regular rate, Normal S1, Normal S2, Abdomen: soft nontender well-healed midline scar without any drainage, hypoactive bowel sounds Cholecystostomy tube draining bile laboratory and microbiology Laboratory Tests 11/24/24 02:51 Test 11/24/24 02:51 Range/Units Serum Glucose 87 74-106 mg/dL CT SCAN ABD PELVIS 11/19/24 IMPRESSION: 1. Limited study without intravenous contrast. 2. Right lower lobe consolidation. Small right pleural effusion with pleural thickening. This could represent pneumonia with parapneumonic effusion. Trace left pleural effusion and left lower lobe consolidation. 3. Tracheostomy tube present with secretions noted around the trachea. 4. No bowel obstruction or ileus. 5. Percutaneous cholecystostomy tube in situ. 6. Wall thickening in the urinary bladder may be due to underdistention. There is air in the urinary bladder which may be related to the presence of the Gómez catheter. Infection is not excluded. Problems(with codes): (1) Elevated liver enzymes (2) Cholecystitis (3) Shock (4) Altered mental status (5) Acute kidney injury (6) Perforated viscus (7) NSTEMI (non-ST elevated myocardial infarction) (8) GI bleed (9) Septic shock (10) Leukocytosis Prognosis Plan I believe this patient should be able to tolerate a diet I will get a Gastrografin upper GI small-bowel x-ray to rule out any gastric outlet obstruction or ileus If the Gastrografin x-ray is negative I would recommend advancing to a full liquid diet and possibly continuing NG tube Elective cholecystectomy as recommended by surgical consult Continue IV Protonix, IV antibiotics for right lower lobe consolidation and pneumonia Physical therapy, prognosis remains guarded Dietary Evaluation Review Comments: 1. Continue TPN to meet at least 75% estimated needs 2. Continue current POC Expected Outcomes/Goals: FU 2-3 days to meet adequate energy & protein within 7 days of NPO Protein Calorie Malnutrition: Severe (rn) Plan discussed with: Patient, Other (ICU Nurse) CC Plasma Assessment Blood Product Administration S: [id number] GURJIT NOBLE MD Nov 24, 2024 21:29
--- NOTE | 2024-11-24 23:39 | DVHPN2 ---
Progress Note - Dictate Date Seen: Nov 24, 2024 Has the PT tested + for MRSA If YES, has PT been informed?: No Medical Necessity Reason Pt with a Central, PICC or Fol: Yes The following are medically ne: Central Line, Gómez Catheter Reason for gómez catheter: Strict I&O Subjective Patient seen and examined at bedside. S/p trach. Currently breathing on room air. Overnight events reviewed. vital signs Vital Sign Date Time Temp Pulse Resp B/P (MAP) Pulse Ox O2 Delivery O2 Flow Rate FiO2 11/24/24 22:30 80 23 124/49 (74) 95 11/24/24 22:00 T-piece 0 N/A 11/24/24 20:00 98.4 98.4 Total Intake and Output 11/23/24 11/23/24 11/24/24 15:00 23:00 07:00 Intake Total 1420 ml 1120 ml 760 ml Output Total 1500 ml 1150 ml Balance 1420 ml -380 ml -390 ml medications Current Medications Medications Dose Ordered Sig/Wally Route Start Time Stop Time Status Last Admin Dose Admin Ondansetron HCl 4 mg Q4HP PRN IV 10/04/24 11:45 Morphine Sulfate 2 mg Q4HPRN PRN IV 10/04/24 11:45 Cancel Morphine Sulfate 2 mg Q30M PRN IV 10/04/24 11:45 Cancel Lorazepam 50 mg/ Sodium Chloride 50 ml @ 1 mls/hr Q24H IV 10/04/24 18:15 Cancel Amino Acids 0 ml @ 0 mls/hr PER PHARMACY IV 10/05/24 14:30 UNV Meropenem 50 ml @ 17 mls/hr Q12HR IV 10/07/24 10:00 UNV Levalbuterol HCl 0.625 mg Q6HR NEB 10/13/24 12:00 11/24/24 19:01 0.625 MG Ipratropium [place] 0.5 mg Q6HR NEB 10/13/24 12:00 11/24/24 19:01 0.5 MG Morphine Sulfate 2 mg Q4HPRN PRN IV 10/21/24 11:30 11/10/24 05:15 2 MG Acetaminophen 650 mg Q6HP PRN GT 10/22/24 09:00 11/10/24 08:08 650 MG Sucralfate 1 gm BID@0600,2200 GT 10/28/24 22:00 11/24/24 21:36 1 GM Pantoprazole Sodium 50 ml @ 0 mls/hr Q0M IV 10/28/24 16:15 Cancel Sodium Chloride 10 ml QSHIFT@10,22 IV 10/31/24 22:00 11/24/24 21:39 10 ML Micafungin Sodium 100 mg/Sodium Chloride 100 ml @ 100 mls/hr DAILY IV 11/02/24 10:00 11/24/24 09:25 100 MLS/HR Acetaminophen/ Hydrocodone Bitart 1 tab Q4HPRN PRN PO 11/06/24 09:15 Amlodipine Besylate 10 mg DAILY GT 11/11/24 10:00 11/24/24 09:26 10 MG Labetalol HCl 10 mg Q2HPRN PRN IV 11/12/24 17:00 11/17/24 19:40 10 MG Hydralazine HCl 50 mg Q8HR GT 11/13/24 14:00 11/24/24 21:38 50 MG Clonidine HCl 0.1 mg Q7D TD 11/13/24 07:00 11/20/24 08:12 0.1 MG Lorazepam 1 mg Q4HP PRN IV 11/14/24 16:15 11/18/24 20:05 1 MG Albuterol 2.5 mg Q3HPRN PRN NEB 11/18/24 10:30 Labetalol HCl 100 mg Q12HR GT 11/20/24 10:00 11/24/24 21:38 100 MG Enoxaparin Sodium 40 mg DAILY SC 11/22/24 10:00 11/24/24 09:25 40 MG Enteral Nutritional Formula 1,000 ml 60ML/HR GT 11/22/24 11:00 Lactated Ringer's 1,000 ml @ 30 mls/hr Q24H IV 11/24/24 08:45 11/24/24 09:27 30 MLS/HR Lactulose 30 ml Q12HP PRN JT 11/24/24 09:00 Metoclopramide HCl 10 mg Q8HR GT 11/24/24 14:00 11/26/24 13:59 11/24/24 21:36 10 MG Omeprazole 20 mg BID@0600,1700 GT 11/25/24 06:00 objective Gen.: Patient lying in bed in no apparent distress. S/p trach. Breathing on room air. Head: Normocephalic, atraumatic. Eyes: EOMI/PERRLA. Ears: Normal hearing. Normal anatomy. Neck/trachea: Trach in place. Nose: Normal external anatomy. Mouth: Moist mucous membranes. Chest: Decreased air entry bilaterally. No wheezing or rhonchi. Cardiovascular: Positive S1, positive S2. Regular rate and rhythm. Abdomen: Positive bowel sounds in all 4 quadrants. Soft, non-tender, non- distended. : Deferred. Rectal: Deferred. Skin: Warm, dry. Intact. Extremities: 2+ radial pulses bilaterally. No lower extremity edema. Neuro: Awake, alert, oriented x3. No gross motor or sensory deficits. Cranial nerves II through XII intact. Gait not assessed. laboratory and microbiology Laboratory Tests 11/24/24 02:51 Test 11/24/24 02:51 Range/Units Serum Glucose 87 74-106 mg/dL Assessment/Plan Impression: Acute hypoxic respiratory failure S/p tracheostomy Septic shock Perforated viscus s/p repair Nicotine dependence Events: S/p tracheostomy On room air. Remains trached with 8.0 cuffed Shiley Trach collar/T-piece Passy Sam valve once available Consider downsizing trach. Trach care per RT. Place off humidified air. IV fluids with LR at 30 ml/hr. NGT Tube feeds for nutritional support Continue antifungal Complete course of antibiotics Repeat blood cultures showed no growth x72 hours Head of bed elevation Aspiration precautions Monitor Hgb Protonix BID for GI ppx GI recs appreciated. Monitor drain output. CT chest, abdomen and pelvis on 10/19/24 revealed right lower lobe consolidation. Small right pleural effusion with pleural thickening. This could represent pneumonia with parapneumonic effusion. Trace left pleural effusion and left lower lobe consolidation. Labs and imaging reviewed Plan: S/p tracheostomy Supplemental oxygen PRN Titrate to maintain sats above 92% Continue support on vent Place on full vent support if any distress. Trach collar Trach care per RT. Follow up with General Surgery Continue antibiotics and antifungals F/u cultures Bronchodilators Complete abx course Monitor Hgb Protonix BID for GI ppx Monitor renal function Monitor electrolytes Supplement as needed HD per nephrology Nutritional support DVT prophylaxis Prognosis: Guarded given patient's multiple co-morbidities. Rest of plan per hospitalist and other consultants. Thank you, [employer] Werner, for allowing me to participate in this patient's care. Further recommendations will depend on the patient's clinical course. Please do not hesitate to contact me if you have any questions or concerns. This medical document was created using an electronic medical record system with [employer] dictation system. Although these documentations are being carefully reviewed, there may still be some phonetic and typographical changes. The errors are purely typographical, due to imperfection on the software program, and do not reflect any compromise in the patient's medical care. Dietary Evaluation Review Comments: 1. Continue TPN to meet at least 75% estimated needs 2. Continue current POC Expected Outcomes/Goals: FU 2-3 days to meet adequate energy & protein within 7 days of NPO Protein Calorie Malnutrition: Severe (rn) Plan discussed with: Patient, Other (JASPER Ambrocio) CC Plasma Assessment Blood Product Administration S: [id number] ARIE LOPEZ MD Nov 24, 2024 23:39
[2024-11-25] VITALS (38 sets, daily range): BP systolic 111–188; BP diastolic 49–95; PULSE 75–122; RESP 17–36; TEMP 97.9–98.4; O2SAT 92–100
[2024-11-25 03:37] LABS: Hematocrit 29.6 % (41.0-53.0); Hemoglobin 9.5 g/dL (13.5-17.5); Mean Corpuscular Hemoglobin 28.2 pg (28.0-32.0); Mean Corpuscular Volume 87.6 fL (80.0-100.0); Nucleated Red Blood Cells % 0.1 %
[2024-11-25 03:41] LABS: Chloride 105 mmol/L (98-107); Potassium 4.1 mmol/L (3.5-5.1); Sodium 137 mmol/L (136-145)
[2024-11-25 03:42] LABS: Anion Gap 8 (5-15); Carbon Dioxide 24 mmol/L (20-31)
[2024-11-25 03:47] LABS: BUN/Creatinine Ratio 7.3 (10.0-20.0); Blood Urea Nitrogen 9 mg/dL (9-23); Glucose 94 mg/dL (74-106)
[2024-11-25 04:14] LABS: Calcium 8.2 mg/dL (8.7-10.4)
[2024-11-25] MEDS: OMEPRAZOLE-SOD BICARB 20 MG POWDER GT SCH (06:00)
[2024-11-25] MEDS: LABETALOL HCL 200 MG TAB GT SCH (10:03)
--- NOTE | 2024-11-25 10:19 | DVHPN2 ---
Subjective Patient is alert following commands. Denies any symptoms. Reviewed: Care Plan, H&P, Labs, Medications, Previous Orders, Radiology, Other (Consultants) Changes from previous H/P or p: No Changes General: Per HPI Objective Vitals Vital Signs Date Time Temp Pulse Resp B/P (MAP) Pulse Ox O2 Delivery O2 Flow Rate FiO2 11/25/24 10:03 82 179/79 11/25/24 08:00 20 95 T-piece 0 N/A 11/25/24 08:00 98.2 98.2 Intake/Output Intake and Output 11/25/24 07:00 Intake Total 1321 ml Output Total 1780 ml Balance -459 ml IV Total 880 ml Tube Feeding 441 ml Output Urine Total 1310 ml Drainage Total 470 ml # Bowel Movements 1 General Appearance: Alert, Oriented X3, Cooperative, mild distress, Other HEENT: Atraumatic, PERRLA Lungs: Clear to auscultation, Normal air movement, Other Cardiovascular: Normal S1, Normal S2, Other Abdomen: Other Extremities: Normal pulses Neuro: Cranial nerves 3-12 NL, Other Skin: Dry, Intact, Wounds, Other Psych/Mental Status: Other Medications Current Medications Medications Dose Ordered Sig/Wally Route Start Time Stop Time Status Last Admin Dose Admin Ondansetron HCl 4 mg Q4HP PRN IV 10/04/24 11:45 Morphine Sulfate 2 mg Q4HPRN PRN IV 10/04/24 11:45 Cancel Morphine Sulfate 2 mg Q30M PRN IV 10/04/24 11:45 Cancel Lorazepam 50 mg/ Sodium Chloride 50 ml @ 1 mls/hr Q24H IV 10/04/24 18:15 Cancel Amino Acids 0 ml @ 0 mls/hr PER PHARMACY IV 10/05/24 14:30 UNV Meropenem 50 ml @ 17 mls/hr Q12HR IV 10/07/24 10:00 UNV Levalbuterol HCl 0.625 mg Q6HR NEB 10/13/24 12:00 11/25/24 06:26 0.625 MG Ipratropium [place] 0.5 mg Q6HR NEB 10/13/24 12:00 11/25/24 06:26 0.5 MG Morphine Sulfate 2 mg Q4HPRN PRN IV 10/21/24 11:30 11/10/24 05:15 2 MG Acetaminophen 650 mg Q6HP PRN GT 10/22/24 09:00 11/10/24 08:08 650 MG Sucralfate 1 gm BID@0600,2200 GT 10/28/24 22:00 11/25/24 05:14 1 GM Pantoprazole Sodium 50 ml @ 0 mls/hr Q0M IV 10/28/24 16:15 Cancel Sodium Chloride 10 ml QSHIFT@10,22 IV 10/31/24 22:00 11/25/24 10:01 10 ML Micafungin Sodium 100 mg/Sodium Chloride 100 ml @ 100 mls/hr DAILY IV 11/02/24 10:00 11/25/24 10:03 100 MLS/HR Acetaminophen/ Hydrocodone Bitart 1 tab Q4HPRN PRN PO 11/06/24 09:15 Amlodipine Besylate 10 mg DAILY GT 11/11/24 10:00 11/25/24 10:02 10 MG Labetalol HCl 10 mg Q2HPRN PRN IV 11/12/24 17:00 11/25/24 06:35 10 MG Hydralazine HCl 50 mg Q8HR GT 11/13/24 14:00 11/25/24 05:14 50 MG Clonidine HCl 0.1 mg Q7D TD 11/13/24 07:00 11/20/24 08:12 0.1 MG Lorazepam 1 mg Q4HP PRN IV 11/14/24 16:15 11/18/24 20:05 1 MG Albuterol 2.5 mg Q3HPRN PRN NEB 11/18/24 10:30 Enoxaparin Sodium 40 mg DAILY SC 11/22/24 10:00 11/25/24 10:03 40 MG Enteral Nutritional Formula 1,000 ml 60ML/HR GT 11/22/24 11:00 Lactated Ringer's 1,000 ml @ 30 mls/hr Q24H IV 11/24/24 08:45 11/25/24 10:00 30 MLS/HR Lactulose 30 ml Q12HP PRN JT 11/24/24 09:00 Metoclopramide HCl 10 mg Q8HR GT 11/24/24 14:00 11/26/24 13:59 11/25/24 05:14 10 MG Omeprazole 20 mg BID@0600,1700 GT 11/25/24 06:00 Labetalol HCl 200 mg Q12HR GT 11/25/24 10:00 11/25/24 10:03 200 MG Laboratory Results Laboratory Tests 11/25/24 02:49 Chemistry Test 11/25/24 02:49 Calcium Level 8.2 mg/dL (8.7-10.4) L Urinalysis Test 10/05/24 15:05 10/26/24 20:33 11/07/24 12:40 Urine Mucus Few (None Seen) Urine Color Light-yellow (Yellow) Urine Clarity Clear (Clear) Urine pH 7.0 (5.0-9.0) Urine Specific [place] 1.014 (1.001-1.035) Urine Protein 1+ (Negative) H Urine Ketones Negative (Negative) Urine Blood 1+ /uL (Negative) H Urine Nitrite Negative (Negative) Urine Bilirubin Negative (Negative) Urine Urobilinogen Normal mg/dL (Negative) Urine Leukocyte Esterase Negative /uL (Negative) Urine RBC 1 /hpf (0 - 3) Urine Microscopic WBC 3 /HPF (0-3) Urine Squamous Epithelial Cells None seen /hpf (<5) Urine Bacteria Few /hpf (None Seen) H Urine Glucose Normal mg/dL (Normal) Urine Creatinine 64.63 mg/dL (30.0-125.0) Urine Protein/Creatinine Ratio 3.11 Urine Sodium 34 mmol/L (40-220) L Urine Total Protein 200.7 mg/dL (1-14) H Microbiology Microbiology Date/Time Source Procedure Growth Status 11/20/24 09:56 Sputum Gram Stain - Final Complete 11/20/24 09:56 Sputum Respiratory Culture - Final Complete 11/20/24 08:16 Blood Blood Culture - Final NO GROWTH AFTER 5 DAYS OF INCUBATION. Complete 11/10/24 22:44 Voided Urine Urine Culture - Final Complete 10/18/24 09:21 Pleural Fluid Gram Stain - Final Complete 10/18/24 09:21 Pleural Fluid Body Fluid Culture - Final Complete 10/04/24 17:10 Nose MRSA Screen - Final Complete Labs and/or images reviewed: Labs reviewed by me, Image(s) reviewed by me Assessment/Plan Assessment/Plan Impression: -severe septic shock -pneumoperitoneum secondary to perforated gastric ulcer -acute kidney injury, hemodynamically mediated, probable VMN -acute hypoxic respiratory failure -shock liver -nicotine dependence -history of CVA -right upper extremity DVT -multifocal pneumonia, probable Gram-positive/Gram-negative etiology -anemia secondary to nutrition, renal failure -bilateral pleural effusions -small left pneumothorax -Failure of ventilator weaning, status post tracheostomy -fungemia Plan: Events: No events overnight. Positive BM. Patient with accelerated hypertension. -increase labetalol to 200 mg via NG tube twice a day -GI consultation: Discussed case. -antibiotic therapy: Currently on micafungin. White blood cell count normal. Discontinue micafungin if cleared by Infectious Disease -TKO IV fluids -nicotine patch -speech therapy consultation for swallow evaluation and placement of Passy [place] valve -we will reassess with surgical team when appropriate for removing cholecystectomy tube/cholecystectomy -physical therapy, out of bed as tolerated -repeat labs in am Critical care time spent with patient discussing and formulating plan of care: 40 minutes. This does not include time spent performing procedures. This medical document was created using an electronic medical record system with [employer] dictation system. Although this document has been carefully reviewed, there may still be some phonetic and typographical errors. These areas are purely typographical due to imperfections of the software programs, and do not reflect any compromise in the patient's medical care. Plan discussed with: Patient, Other (RN) My Orders Orders - CHEYENNE PIKE NP Procedure Category Date Status Time Omeprazole-Sodium PHA 11/25/24 In Process Bicarbonate (Omeprazol 06:00 Labetalol Hcl Tablet PHA 11/25/24 In Process (Normodyne Tablet) 10:00 Oob To Chair CINTHIA 11/25/24 Verified 10:14 Date of Service: Nov 25, 2024 Billing Provider: CHEYENNE PIKE NP Common Visit Codes: 25155-[id number] CARE 30-74 MIN CHEYENNE PIKE NP Nov 25, 2024 10:19
[2024-11-25] MEDS: NICOTINE 14 MG/24HR TOPICAL PATCH TD ONE (11:24)
[2024-11-25] MEDS: GASTROGRAFIN 120 ML SOL ONE (14:00)
--- NOTE | 2024-11-25 15:45 | DVH ---
Procedure: XY SMALL BOWEL SERIES-W GASTROGRA Reason for study/Clinical History: high residuals Comparison Study: None Technique: Single contrast small bowel series performed. FINDINGS/IMPRESSION: Initial supervisor natural [employer] plant view of the abdomen and pelvis appears demonstrates no acute process. Contrast is identified within the colon by 30 minutes. This represents a normal small bowel transit time.
--- NOTE | 2024-11-25 15:53 | DVHPN2 ---
Progress Note - Dictate Date Seen: Nov 25, 2024 Has the PT tested + for MRSA If YES, has PT been informed?: No Medical Necessity Reason Pt with a Central, PICC or Fol: Yes The following are medically ne: Central Line, Gómez Catheter Reason for gómez catheter: Strict I&O Subjective Patient is awake and alert able to tolerate clear liquids Is on NG tube feedings vital at 35 mL/hour No active GI bleeding is reported Cholecystostomy tube is draining bile vital signs Vital Sign Date Time Temp Pulse Resp B/P (MAP) Pulse Ox O2 Delivery O2 Flow Rate FiO2 11/25/24 14:19 153/79 11/25/24 14:00 20 95 Room Air* 0 N/A T-piece 11/25/24 14:00 91 11/25/24 12:00 98.0 98.0 Total Intake and Output 11/24/24 11/24/24 11/25/24 15:00 23:00 07:00 Intake Total 400 ml 370 ml 551 ml Output Total 1000 ml 780 ml Balance 400 ml -630 ml -229 ml medications Current Medications Medications Dose Ordered Sig/Wally Route Start Time Stop Time Status Last Admin Dose Admin Ondansetron HCl 4 mg Q4HP PRN IV 10/04/24 11:45 Morphine Sulfate 2 mg Q4HPRN PRN IV 10/04/24 11:45 Cancel Morphine Sulfate 2 mg Q30M PRN IV 10/04/24 11:45 Cancel Lorazepam 50 mg/ Sodium Chloride 50 ml @ 1 mls/hr Q24H IV 10/04/24 18:15 Cancel Amino Acids 0 ml @ 0 mls/hr PER PHARMACY IV 10/05/24 14:30 UNV Meropenem 50 ml @ 17 mls/hr Q12HR IV 10/07/24 10:00 UNV Levalbuterol HCl 0.625 mg Q6HR NEB 10/13/24 12:00 11/25/24 11:24 0.625 MG Ipratropium [place] 0.5 mg Q6HR NEB 10/13/24 12:00 11/25/24 11:24 0.5 MG Morphine Sulfate 2 mg Q4HPRN PRN IV 10/21/24 11:30 11/10/24 05:15 2 MG Acetaminophen 650 mg Q6HP PRN GT 10/22/24 09:00 11/10/24 08:08 650 MG Pantoprazole Sodium 50 ml @ 0 mls/hr Q0M IV 10/28/24 16:15 Cancel Sodium Chloride 10 ml QSHIFT@10,22 IV 10/31/24 22:00 11/25/24 10:01 10 ML Micafungin Sodium 100 mg/Sodium Chloride 100 ml @ 100 mls/hr DAILY IV 11/02/24 10:00 11/25/24 10:03 100 MLS/HR Acetaminophen/ Hydrocodone Bitart 1 tab Q4HPRN PRN PO 11/06/24 09:15 Amlodipine Besylate 10 mg DAILY GT 11/11/24 10:00 11/25/24 10:02 10 MG Labetalol HCl 10 mg Q2HPRN PRN IV 11/12/24 17:00 11/25/24 06:35 10 MG Hydralazine HCl 50 mg Q8HR GT 11/13/24 14:00 11/25/24 14:19 50 MG Clonidine HCl 0.1 mg Q7D TD 11/13/24 07:00 11/20/24 08:12 0.1 MG Lorazepam 1 mg Q4HP PRN IV 11/14/24 16:15 11/18/24 20:05 1 MG Albuterol 2.5 mg Q3HPRN PRN NEB 11/18/24 10:30 Enoxaparin Sodium 40 mg DAILY SC 11/22/24 10:00 11/25/24 10:03 40 MG Enteral Nutritional Formula 1,000 ml 60ML/HR GT 11/22/24 11:00 Lactated Ringer's 1,000 ml @ 30 mls/hr Q24H IV 11/24/24 08:45 11/25/24 10:00 30 MLS/HR Lactulose 30 ml Q12HP PRN JT 11/24/24 09:00 Metoclopramide HCl 10 mg Q8HR GT 11/24/24 14:00 11/26/24 13:59 11/25/24 05:14 10 MG Omeprazole 20 mg BID@0600,1700 GT 11/25/24 06:00 Labetalol HCl 200 mg Q12HR GT 11/25/24 10:00 11/25/24 10:03 200 MG Nicotine 1 patch DAILY TD 11/26/24 10:00 objective General Appearance: Alert, awake on trach collar HEENT: Atraumatic, PERRLA;Mild pallor, NG tube tolerating enteral tube feedings Lungs: Decreased breath sounds at bases) Cardiovascular: Regular rate, Normal S1, Normal S2, Abdomen: soft nontender well-healed midline scar without any drainage, hypoactive bowel sounds Cholecystostomy tube draining bile laboratory and microbiology Laboratory Tests 11/25/24 02:49 Test 11/25/24 02:49 Range/Units Serum Glucose 94 74-106 mg/dL Problems(with codes): (1) Elevated liver enzymes (2) Cholecystitis (3) Shock (4) Altered mental status (5) Severe anemia (6) Perforated viscus (7) NSTEMI (non-ST elevated myocardial infarction) (8) Leukocytosis (9) Septic shock (10) GI bleed Prognosis Plan Awaiting formal swallow evaluation I will get a Gastrografin small-bowel series upper GI series to see if there was movement of contrast through the small bowel If the patient's Gastrografin small-bowel series is negative then he can likely be started on a liquid diet Physical therapy, continue IV antibiotics for pneumonia GI bleed has resolved, H&H is stable, continue IV Protonix Surgical consult has recommended elective cholecystectomy Dietary Evaluation Review Comments: 1. Continue TPN to meet at least 75% estimated needs 2. Continue current POC Expected Outcomes/Goals: FU 2-3 days to meet adequate energy & protein within 7 days of NPO Protein Calorie Malnutrition: Severe (rn) Plan discussed with: Patient, Other (Nurse Cristóbal) CC Plasma Assessment Blood Product Administration S: [id number] GURJIT NOBLE MD Nov 25, 2024 15:53
--- NOTE | 2024-11-25 23:29 | DVHPN2 ---
Progress Note - Dictate Date Seen: Nov 25, 2024 Has the PT tested + for MRSA If YES, has PT been informed?: No Medical Necessity Reason Pt with a Central, PICC or Fol: Yes The following are medically ne: Central Line, Gómez Catheter Reason for gómez catheter: Strict I&O Subjective Patient seen and examined at bedside. S/p trach. Currently breathing on room air. Overnight events reviewed. vital signs Vital Sign Date Time Temp Pulse Resp B/P (MAP) Pulse Ox O2 Delivery O2 Flow Rate FiO2 11/25/24 22:36 86 133/63 11/25/24 22:00 20 96 Room Air* 0 N/A T-piece 11/25/24 20:00 97.9 97.9 Total Intake and Output 11/24/24 11/24/24 11/25/24 15:00 23:00 07:00 Intake Total 400 ml 370 ml 551 ml Output Total 1000 ml 780 ml Balance 400 ml -630 ml -229 ml medications Current Medications Medications Dose Ordered Sig/Wally Route Start Time Stop Time Status Last Admin Dose Admin Ondansetron HCl 4 mg Q4HP PRN IV 10/04/24 11:45 Morphine Sulfate 2 mg Q4HPRN PRN IV 10/04/24 11:45 Cancel Morphine Sulfate 2 mg Q30M PRN IV 10/04/24 11:45 Cancel Lorazepam 50 mg/ Sodium Chloride 50 ml @ 1 mls/hr Q24H IV 10/04/24 18:15 Cancel Amino Acids 0 ml @ 0 mls/hr PER PHARMACY IV 10/05/24 14:30 UNV Meropenem 50 ml @ 17 mls/hr Q12HR IV 10/07/24 10:00 UNV Levalbuterol HCl 0.625 mg Q6HR NEB 10/13/24 12:00 11/25/24 18:52 0.625 MG Ipratropium [place] 0.5 mg Q6HR NEB 10/13/24 12:00 11/25/24 18:52 0.5 MG Morphine Sulfate 2 mg Q4HPRN PRN IV 10/21/24 11:30 11/10/24 05:15 2 MG Acetaminophen 650 mg Q6HP PRN GT 10/22/24 09:00 11/10/24 08:08 650 MG Pantoprazole Sodium 50 ml @ 0 mls/hr Q0M IV 10/28/24 16:15 Cancel Sodium Chloride 10 ml QSHIFT@10,22 IV 10/31/24 22:00 11/25/24 21:38 10 ML Micafungin Sodium 100 mg/Sodium Chloride 100 ml @ 100 mls/hr DAILY IV 11/02/24 10:00 11/25/24 10:03 100 MLS/HR Acetaminophen/ Hydrocodone Bitart 1 tab Q4HPRN PRN PO 11/06/24 09:15 Amlodipine Besylate 10 mg DAILY GT 11/11/24 10:00 11/25/24 10:02 10 MG Labetalol HCl 10 mg Q2HPRN PRN IV 11/12/24 17:00 11/25/24 06:35 10 MG Hydralazine HCl 50 mg Q8HR GT 11/13/24 14:00 11/25/24 21:36 50 MG Clonidine HCl 0.1 mg Q7D TD 11/13/24 07:00 11/20/24 08:12 0.1 MG Lorazepam 1 mg Q4HP PRN IV 11/14/24 16:15 11/18/24 20:05 1 MG Albuterol 2.5 mg Q3HPRN PRN NEB 11/18/24 10:30 Enoxaparin Sodium 40 mg DAILY SC 11/22/24 10:00 11/25/24 10:03 40 MG Enteral Nutritional Formula 1,000 ml 60ML/HR GT 11/22/24 11:00 Lactated Ringer's 1,000 ml @ 30 mls/hr Q24H IV 11/24/24 08:45 11/25/24 10:00 30 MLS/HR Lactulose 30 ml Q12HP PRN JT 11/24/24 09:00 Metoclopramide HCl 10 mg Q8HR GT 11/24/24 14:00 11/26/24 13:59 11/25/24 21:36 10 MG Omeprazole 20 mg BID@0600,1700 GT 11/25/24 06:00 11/25/24 17:12 20 MG Labetalol HCl 200 mg Q12HR GT 11/25/24 10:00 11/25/24 21:36 200 MG Nicotine 1 patch DAILY TD 11/26/24 10:00 objective Gen.: Patient lying in bed in no apparent distress. S/p trach. Breathing on room air. Head: Normocephalic, atraumatic. Eyes: EOMI/PERRLA. Ears: Normal hearing. Normal anatomy. Neck/trachea: Trach in place. Nose: Normal external anatomy. Mouth: Moist mucous membranes. Chest: Decreased air entry bilaterally. No wheezing or rhonchi. Cardiovascular: Positive S1, positive S2. Regular rate and rhythm. Abdomen: Positive bowel sounds in all 4 quadrants. Soft, non-tender, non- distended. : Deferred. Rectal: Deferred. Skin: Warm, dry. Intact. Extremities: 2+ radial pulses bilaterally. No lower extremity edema. Neuro: Awake, alert, oriented x3. No gross motor or sensory deficits. Cranial nerves II through XII intact. Gait not assessed. laboratory and microbiology Laboratory Tests 11/25/24 02:49 Test 11/25/24 02:49 Range/Units Serum Glucose 94 74-106 mg/dL Assessment/Plan Impression: Acute hypoxic respiratory failure S/p tracheostomy Septic shock Perforated viscus s/p repair Nicotine dependence Events: S/p tracheostomy On room air. Remains trached with 8.0 cuffed Shiley Trach collar/T-piece Passy [place] valve once available Recommend downsizing trach in AM. Trach care per RT. Place off humidified air. Pulmonary toileting IV fluids with LR at 30 ml/hr. NGT Tube feeds for nutritional support Continue bronchodilators/Mucomyst Continue antifungal Complete course of antibiotics Repeat blood cultures showed no growth after 5 days Sputum cultures - normal oropharyngeal dominic. Head of bed elevation Aspiration precautions Monitor Hgb Protonix BID for GI ppx GI recs appreciated. Small bowel series done today, normal Monitor drain output. CT chest, abdomen and pelvis on 10/19/24 revealed right lower lobe consolidation. Small right pleural effusion with pleural thickening. This could represent pneumonia with parapneumonic effusion. Trace left pleural effusion and left lower lobe consolidation. Labs and imaging reviewed Plan: S/p tracheostomy Supplemental oxygen PRN Titrate to maintain sats above 92% Continue support on vent Place on full vent support if any distress. Trach collar Trach care per RT. Follow up with General Surgery Bronchodilators Continue antibiotics and antifungals F/u cultures Bronchodilators Complete abx course Monitor Hgb Protonix BID for GI ppx Monitor renal function Monitor electrolytes Supplement as needed HD per nephrology Nutritional support DVT prophylaxis Prognosis: Guarded given patient's multiple co-morbidities. Rest of plan per hospitalist and other consultants. Thank you, [employer] Werner, for allowing me to participate in this patient's care. Further recommendations will depend on the patient's clinical course. Please do not hesitate to contact me if you have any questions or concerns. This medical document was created using an electronic medical record system with [employer] dictation system. Although these documentations are being carefully reviewed, there may still be some phonetic and typographical changes. The errors are purely typographical, due to imperfection on the software program, and do not reflect any compromise in the patient's medical care. Dietary Evaluation Review Comments: 1. Continue TPN to meet at least 75% estimated needs 2. Continue current POC Expected Outcomes/Goals: FU 2-3 days to meet adequate energy & protein within 7 days of NPO Protein Calorie Malnutrition: Severe (rn) Plan discussed with: Patient, Other (JASPER Carrington) CC Plasma Assessment Blood Product Administration S: [id number] ARIE LOPEZ MD Nov 25, 2024 23:29
[2024-11-26] VITALS (59 sets, daily range): BP systolic 134–188; BP diastolic 64–137; PULSE 81–129; RESP 17–33; TEMP 97.8–98.8; O2SAT 92–100
[2024-11-26 03:40] LABS: Mean Corpuscular Hemoglobin 28.3 pg (28.0-32.0); Nucleated Red Blood Cells % 0.1 %
[2024-11-26 03:42] LABS: Hematocrit 25.1 % (41.0-53.0); Hemoglobin 8.1 g/dL (13.5-17.5); Mean Corpuscular Volume 87.8 fL (80.0-100.0)
[2024-11-26 03:46] LABS: Chloride 107 mmol/L (98-107); Potassium 3.9 mmol/L (3.5-5.1); Sodium 141 mmol/L (136-145)
[2024-11-26 03:47] LABS: Anion Gap 10 (5-15); Carbon Dioxide 24 mmol/L (20-31)
[2024-11-26 03:52] LABS: BUN/Creatinine Ratio 25.2 (10.0-20.0); Glucose 89 mg/dL (74-106)
[2024-11-26 03:53] LABS: Blood Urea Nitrogen 29 mg/dL (9-23); Calcium 8.6 mg/dL (8.7-10.4)
[2024-11-26] MEDS: Vital AF 1.2 Cal 1 liter bottle GT SCH (06:44)
--- NOTE | 2024-11-26 09:42 | DVHPN2 ---
Subjective Patient is alert following commands. Denies any symptoms. Reviewed: Care Plan, H&P, Labs, Medications, Previous Orders, Radiology, Other (Consultants) Changes from previous H/P or p: No Changes General: Per HPI Objective Vitals Vital Signs Date Time Temp Pulse Resp B/P (MAP) Pulse Ox O2 Delivery O2 Flow Rate FiO2 11/26/24 08:00 17 96 Room Air* 0 N/A T-piece 11/26/24 08:00 114 11/26/24 06:15 163/75 11/26/24 04:00 98.1 98.1 Intake/Output Intake and Output 11/26/24 07:00 Intake Total 1275 ml Output Total 1550 ml Balance -275 ml Intake Oral 150 ml IV Total 790 ml Tube Feeding 335 ml Output Urine Total 1250 ml Drainage Total 300 ml # Bowel Movements 8 General Appearance: Alert, Oriented X3, Cooperative, mild distress, Other HEENT: Atraumatic, PERRLA Lungs: Clear to auscultation, Normal air movement, Other Cardiovascular: Normal S1, Normal S2, Other Abdomen: Other Extremities: Normal pulses Neuro: Cranial nerves 3-12 NL, Other Skin: Dry, Intact, Wounds, Other Psych/Mental Status: Other Medications Current Medications Medications Dose Ordered Sig/Wally Route Start Time Stop Time Status Last Admin Dose Admin Ondansetron HCl 4 mg Q4HP PRN IV 10/04/24 11:45 Morphine Sulfate 2 mg Q4HPRN PRN IV 10/04/24 11:45 Cancel Morphine Sulfate 2 mg Q30M PRN IV 10/04/24 11:45 Cancel Lorazepam 50 mg/ Sodium Chloride 50 ml @ 1 mls/hr Q24H IV 10/04/24 18:15 Cancel Amino Acids 0 ml @ 0 mls/hr PER PHARMACY IV 10/05/24 14:30 UNV Meropenem 50 ml @ 17 mls/hr Q12HR IV 10/07/24 10:00 UNV Levalbuterol HCl 0.625 mg Q6HR NEB 10/13/24 12:00 11/26/24 05:49 0.625 MG Ipratropium [place] 0.5 mg Q6HR NEB 10/13/24 12:00 11/26/24 05:47 0.5 MG Morphine Sulfate 2 mg Q4HPRN PRN IV 10/21/24 11:30 11/10/24 05:15 2 MG Acetaminophen 650 mg Q6HP PRN GT 10/22/24 09:00 11/10/24 08:08 650 MG Pantoprazole Sodium 50 ml @ 0 mls/hr Q0M IV 10/28/24 16:15 Cancel Sodium Chloride 10 ml QSHIFT@10,22 IV 10/31/24 22:00 11/25/24 21:38 10 ML Micafungin Sodium 100 mg/Sodium Chloride 100 ml @ 100 mls/hr DAILY IV 11/02/24 10:00 11/25/24 10:03 100 MLS/HR Acetaminophen/ Hydrocodone Bitart 1 tab Q4HPRN PRN PO 11/06/24 09:15 Amlodipine Besylate 10 mg DAILY GT 11/11/24 10:00 11/25/24 10:02 10 MG Labetalol HCl 10 mg Q2HPRN PRN IV 11/12/24 17:00 11/26/24 02:53 10 MG Hydralazine HCl 50 mg Q8HR GT 11/13/24 14:00 11/26/24 06:15 50 MG Clonidine HCl 0.1 mg Q7D TD 11/13/24 07:00 11/20/24 08:12 0.1 MG Lorazepam 1 mg Q4HP PRN IV 11/14/24 16:15 11/18/24 20:05 1 MG Albuterol 2.5 mg Q3HPRN PRN NEB 11/18/24 10:30 Enoxaparin Sodium 40 mg DAILY SC 11/22/24 10:00 11/25/24 10:03 40 MG Enteral Nutritional Formula 1,000 ml 60ML/HR GT 11/22/24 11:00 11/26/24 06:44 1,000 ML Lactated Ringer's 1,000 ml @ 30 mls/hr Q24H IV 11/24/24 08:45 11/25/24 10:00 30 MLS/HR Lactulose 30 ml Q12HP PRN JT 11/24/24 09:00 Metoclopramide HCl 10 mg Q8HR GT 11/24/24 14:00 11/26/24 13:59 11/26/24 06:25 10 MG Omeprazole 20 mg BID@0600,1700 GT 11/25/24 06:00 7/9/25 06:25 20 MG Labetalol HCl 200 mg Q12HR GT 11/25/24 10:00 11/25/24 21:36 200 MG Nicotine 1 patch DAILY TD 11/26/24 10:00 Laboratory Results Laboratory Tests 11/26/24 02:48 Chemistry Test 11/26/24 02:48 Calcium Level 8.6 mg/dL (8.7-10.4) L Urinalysis Test 10/05/24 15:05 10/26/24 20:33 11/07/24 12:40 Urine Mucus Few (None Seen) Urine Color Light-yellow (Yellow) Urine Clarity Clear (Clear) Urine pH 7.0 (5.0-9.0) Urine Specific [place] 1.014 (1.001-1.035) Urine Protein 1+ (Negative) H Urine Ketones Negative (Negative) Urine Blood 1+ /uL (Negative) H Urine Nitrite Negative (Negative) Urine Bilirubin Negative (Negative) Urine Urobilinogen Normal mg/dL (Negative) Urine Leukocyte Esterase Negative /uL (Negative) Urine RBC 1 /hpf (0 - 3) Urine Microscopic WBC 3 /HPF (0-3) Urine Squamous Epithelial Cells None seen /hpf (<5) Urine Bacteria Few /hpf (None Seen) H Urine Glucose Normal mg/dL (Normal) Urine Creatinine 64.63 mg/dL (30.0-125.0) Urine Protein/Creatinine Ratio 3.11 Urine Sodium 34 mmol/L (40-220) L Urine Total Protein 200.7 mg/dL (1-14) H Microbiology Microbiology Date/Time Source Procedure Growth Status 11/20/24 09:56 Sputum Gram Stain - Final Complete 11/20/24 09:56 Sputum Respiratory Culture - Final Complete 11/20/24 08:16 Blood Blood Culture - Final NO GROWTH AFTER 5 DAYS OF INCUBATION. Complete 11/10/24 22:44 Voided Urine Urine Culture - Final Complete 10/18/24 09:21 Pleural Fluid Gram Stain - Final Complete 10/18/24 09:21 Pleural Fluid Body Fluid Culture - Final Complete 10/04/24 17:10 Nose MRSA Screen - Final Complete Labs and/or images reviewed: Labs reviewed by me, Image(s) reviewed by me Assessment/Plan Assessment/Plan Impression: -severe septic shock -pneumoperitoneum secondary to perforated gastric ulcer -acute kidney injury, hemodynamically mediated, probable VMN -acute hypoxic respiratory failure -shock liver -nicotine dependence -history of CVA -right upper extremity DVT -multifocal pneumonia, probable Gram-positive/Gram-negative etiology -anemia secondary to nutrition, renal failure -bilateral pleural effusions -small left pneumothorax -Failure of ventilator weaning, status post tracheostomy -fungemia Plan: Events: No events overnight. Discussed case with ID. Plans to stop Micafungin tomorrow. Pending swallow evaluation. -increase labetalol to 200 mg via NG tube twice a day -GI consultation: Discussed case. -antibiotic therapy: Currently on micafungin. White blood cell count normal. Discontinue micafungin if cleared by Infectious Disease -TKO IV fluids -nicotine patch -speech therapy consultation for swallow evaluation and placement of Passy [place] valve -we will reassess with surgical team when appropriate for removing cholecystectomy tube/cholecystectomy -physical therapy, out of bed as tolerated -repeat labs in am Critical care time spent with patient discussing and formulating plan of care: 40 minutes. This does not include time spent performing procedures. This medical document was created using an electronic medical record system with [employer] dictation system. Although this document has been carefully reviewed, there may still be some phonetic and typographical errors. These areas are purely typographical due to imperfections of the software programs, and do not reflect any compromise in the patient's medical care. Plan discussed with: Patient, Other (RN) My Orders Orders - CHEYENNE PIKE NP Procedure Category Date Status Time Oob To Chair CINTHIA 11/25/24 In Process 10:14 Nicotine 14mg/24hr PHA 11/26/24 In Process (Nicoderm 14mg/24hr) 10:00 Date of Service: Nov 26, 2024 Billing Provider: CHEYENNE PIKE NP Common Visit Codes: [id number] CARE 30-74 MIN CHEYENNE PIKE NP Nov 26, 2024 09:42
[2024-11-26] MEDS: NICOTINE 14 MG/24HR TOPICAL PATCH TD SCH (11:07)
--- NOTE | 2024-11-26 11:16 | DVHPN2 ---
Progress Note - Dictate Date Seen: Nov 26, 2024 Has the PT tested + for MRSA If YES, has PT been informed?: No Medical Necessity Reason Pt with a Central, PICC or Fol: Yes The following are medically ne: Central Line, Gómez Catheter Reason for gómez catheter: Strict I&O Subjective Mr. Perez is a 48 years old right-handed gentleman with a history of hypertension, dyslipidemia, multiple strokes, [facility] with a chief company of recurrent syncope, in the hospital, the patient was found to have perforated viscus, and he went through surgical treatment, he was hospital course has been complicated with sepsis, septic shock, pneumonia, right upper extremity DVT. I saw him on 08/23/2023 for TIA I have seen and examined the patient, discussed with his nurse. Keeps improving, physically stronger, he is able to talk, good social skills, He tells me he has right arm stronger than left arm Blood culture, Urinalysis, 08/22/2023: Unremarkable UDS, 08/22/2023: Negative WBC/Hb/PLT'/MCV, 08/22/2023: 10.8/13.1/184/87.4, 10/28/2024: 15/8/487/89.3 10/31/2024: 24.3/9.1/77/88.4 Troponin 1 high-sensitivity, 08/22/2023: 336, 273/300 BUNs/CR, 08/22/2023: 15/1.45 10/31/2024: Two 9/2.42 GFR, 08/22/2023: 59 Liver function test, 10/04/2024: Unremarkable TBI/AST/ALT/AP, 10/04/2024: 0.6/410/335/31, 10/05/2024: 1.3/582/423/39, 10/31/2024: 3.6/54/98/117 TG/CHO L/LDL/HDL, 08/2023: 136/166/111/39 TSH, 08/23/2023: 4.25 Extremity venous study, right arm, 11/09/2024: Thrombus is seen in the cephalic vein in the forearm. DONAL, 08/23/2023: 1. No evidence of intracardiac source of embolus in the study conducted today. 2. Normal valves without significant masses or change vegetations were discernible. 3. No evidence of intra-atrial shunting by bubble study and color Doppler. 4. Mild atherosclerotic plaquing was visualized in the arch of the aorta without evidence of dissection in the visualized part CT head, 10/24/2024: 1. No intracranial hemorrhage or mass effect. 2. [id number] chronic microvascular ischemic changes. 3. Old bilateral basal ganglia lacunar infarcts. 4. Small bilateral mastoid effusions. CT abdomen/pelvis, 10/04/2024: 1. Extensive intra-abdominal free air concerning for perforated viscus. Surgical consultation is recommended. 2. Enteritis is seen in multiple loops of small bowel in the left hemiabdomen. 3. Moderate abdominopelvic ascites. 4. Small right pleural effusion. CTA neck, head, 08/22/2023:1. CTA head demonstrates no evidence of large vessel occlusion, aneurysm, or significant stenosis. 2. CTA neck demonstrates no evidence of carotid or vertebral dissection or significant stenosis. 3. No noncontrast CT head was performed. 4. Additional findings as detailed above MRI head, 08/23/2023: No acute infarct, intracranial hemorrhage, mass effect, or hydrocephalus. Moderate periventricular and deep subcortical white matter T2 hyperintensities which are nonspecific, but most likely related to sequela of chronic microvascular ischemic changes (I have reviewed the MRI films with our in-house radiologist, Dr. Black, the patient has bilateral multiple subacute/chronic infarcts) MRI head, 11/01/2024: No acute cerebrovascular ischemia. [id number] chronic microvascular ischemic changes. Bilateral mastoid effusions. Old bilateral basal ganglia / lopes radiata infarcts. vital signs Vital Sign Date Time Temp Pulse Resp B/P (MAP) Pulse Ox O2 Delivery O2 Flow Rate FiO2 11/26/24 11:08 130 179/93 11/26/24 10:15 26 98 0.0 21 11/26/24 08:00 Room Air* T-piece 11/26/24 04:00 98.1 98.1 Total Intake and Output 11/25/24 11/25/24 11/26/24 15:00 23:00 07:00 Intake Total 310 ml 525 ml 440 ml Output Total 750 ml 800 ml Balance 310 ml -225 ml -360 ml medications Current Medications Medications Dose Ordered Sig/Wally Route Start Time Stop Time Status Last Admin Dose Admin Ondansetron HCl 4 mg Q4HP PRN IV 10/04/24 11:45 Morphine Sulfate 2 mg Q4HPRN PRN IV 10/04/24 11:45 Cancel Morphine Sulfate 2 mg Q30M PRN IV 10/04/24 11:45 Cancel Lorazepam 50 mg/ Sodium Chloride 50 ml @ 1 mls/hr Q24H IV 10/04/24 18:15 Cancel Amino Acids 0 ml @ 0 mls/hr PER PHARMACY IV 10/05/24 14:30 UNV Meropenem 50 ml @ 17 mls/hr Q12HR IV 10/07/24 10:00 UNV Levalbuterol HCl 0.625 mg Q6HR NEB 10/13/24 12:00 11/26/24 05:49 0.625 MG Ipratropium [place] 0.5 mg Q6HR NEB 10/13/24 12:00 11/26/24 05:47 0.5 MG Morphine Sulfate 2 mg Q4HPRN PRN IV 10/21/24 11:30 11/10/24 05:15 2 MG Acetaminophen 650 mg Q6HP PRN GT 10/22/24 09:00 11/10/24 08:08 650 MG Pantoprazole Sodium 50 ml @ 0 mls/hr Q0M IV 10/28/24 16:15 Cancel Sodium Chloride 10 ml QSHIFT@10,22 IV 10/31/24 22:00 11/25/24 21:38 10 ML Micafungin Sodium 100 mg/Sodium Chloride 100 ml @ 100 mls/hr DAILY IV 11/02/24 10:00 11/26/24 11:11 100 MLS/HR Acetaminophen/ Hydrocodone Bitart 1 tab Q4HPRN PRN PO 11/06/24 09:15 Amlodipine Besylate 10 mg DAILY GT 11/11/24 10:00 11/26/24 11:08 10 MG Labetalol HCl 10 mg Q2HPRN PRN IV 11/12/24 17:00 11/26/24 02:53 10 MG Hydralazine HCl 50 mg Q8HR GT 11/13/24 14:00 11/26/24 06:15 50 MG Clonidine HCl 0.1 mg Q7D TD 11/13/24 07:00 11/20/24 08:12 0.1 MG Lorazepam 1 mg Q4HP PRN IV 11/14/24 16:15 11/18/24 20:05 1 MG Albuterol 2.5 mg Q3HPRN PRN NEB 11/18/24 10:30 Enoxaparin Sodium 40 mg DAILY SC 11/22/24 10:00 11/26/24 11:07 40 MG Enteral Nutritional Formula 1,000 ml 60ML/HR GT 11/22/24 11:00 11/26/24 06:44 1,000 ML Lactated Ringer's 1,000 ml @ 30 mls/hr Q24H IV 11/24/24 08:45 11/25/24 10:00 30 MLS/HR Lactulose 30 ml Q12HP PRN JT 11/24/24 09:00 Metoclopramide HCl 10 mg Q8HR GT 11/24/24 14:00 11/26/24 13:59 11/26/24 06:25 10 MG Omeprazole 20 mg BID@0600,1700 GT 11/25/24 06:00 11/26/24 06:25 20 MG Labetalol HCl 200 mg Q12HR GT 11/25/24 10:00 11/26/24 11:08 200 MG Nicotine 1 patch DAILY TD 11/26/24 10:00 11/26/24 11:07 1 PATCH objective General: the patient is well developed and nourished. No acute distress. MENTAL STATUS: Subjective SPEECH, LANGUAGE, HIGHER CORTICAL FUNCTION: He does not vocalize/status post tracheostomy. CRANIAL NERVES:Intact visual ansari to confrontation (visual thread). Pupils are equal, round and reactive. EOMs full and conjugate. Mandibular strength intact. Facial muscles symmetrical and strength intact. SENSATION: Sensation to touch and pinprick is unremarkable MOTOR: Normal muscle bulk. No fasciculations. No abnormal movements or posturing. Muscle power in the upper extremities: 4-5/5, right side stronger, weaker in the shoulders. Moves legs: 3-4/5 REFLEXES: Deep tendon reflexes are increased bilaterally. No pathological reflexes. CEREBELLAR/COORDINATION: Deferred GAIT/STATION: deferred laboratory and microbiology Laboratory Tests 11/26/24 02:48 Test 11/26/24 02:48 Range/Units Serum Glucose 89 74-106 mg/dL Problem List Altered mental status Metabolic encephalopathy secondary to sepsis, septic shock, pneumonia Hypoxic encephalopathy Viscus perforation status post surgical repair GI bleeding Anemia Fever/ Sepsis/septic shock Respiratory failure S/P tracheostomy Multiple strokes Secondary to history methamphetamine, cocaine, alcohol use History of alcohol abuse History of cocaine, methamphetamine abuse Hyperreflexia secondary to multiple strokes Right upper extremity DVT ICU myopathy Assessment/Plan Monitoring Supportive treatment ICU care Stabilize vitals, PRN Respiratory suppor PRN Follow-up labs IV antibiotics Protonix TPN Quit tobacco smoking No more alcohol, street drug abuse Stroke risk factors discussed GI on case Infectious disease on case Pulmonology on case Hematology on case Nephrology on case More recommended per clinical course This medical document was created using an electronic medical record system with [email or web address] dictation system. Although this document has been carefully reviewed, there may still be some phonetic and typographical errors. These areas are purely typographical due to imperfections of the software programs, and do not reflect any compromise in the patient's medical care. Prognosis poor Dietary Evaluation Review Comments: 1. Continue TPN to meet at least 75% estimated needs 2. Continue current POC Expected Outcomes/Goals: FU 2-3 days to meet adequate energy & protein within 7 days of NPO Protein Calorie Malnutrition: Severe (rn) Plan discussed with: Patient, Other CC Plasma Assessment Blood Product Administration S: [id number] LEANDRO BLACK MD Nov 26, 2024 11:16
--- NOTE | 2024-11-26 21:12 | DVHPN2 ---
Progress Note - Dictate Date Seen: Nov 26, 2024 Has the PT tested + for MRSA If YES, has PT been informed?: No Medical Necessity Reason Pt with a Central, PICC or Fol: Yes The following are medically ne: Central Line, Gómez Catheter Reason for gómez catheter: Strict I&O Subjective Patient seen and examined at bedside. S/p trach. On room air. Overnight events reviewed. vital signs Vital Sign Date Time Temp Pulse Resp B/P (MAP) Pulse Ox O2 Delivery O2 Flow Rate FiO2 11/26/24 20:00 116 11/26/24 19:35 177/97 11/26/24 18:53 26 100 11/26/24 18:47 Room Air 0.0 11/26/24 18:47 21 11/26/24 18:00 98.8 98.8 Total Intake and Output 11/25/24 11/25/24 11/26/24 15:00 23:00 07:00 Intake Total 310 ml 525 ml 440 ml Output Total 750 ml 800 ml Balance 310 ml -225 ml -360 ml medications Current Medications Medications Dose Ordered Sig/Wally Route Start Time Stop Time Status Last Admin Dose Admin Ondansetron HCl 4 mg Q4HP PRN IV 10/04/24 11:45 Morphine Sulfate 2 mg Q4HPRN PRN IV 10/04/24 11:45 Cancel Morphine Sulfate 2 mg Q30M PRN IV 10/04/24 11:45 Cancel Lorazepam 50 mg/ Sodium Chloride 50 ml @ 1 mls/hr Q24H IV 10/04/24 18:15 Cancel Amino Acids 0 ml @ 0 mls/hr PER PHARMACY IV 10/05/24 14:30 UNV Meropenem 50 ml @ 17 mls/hr Q12HR IV 10/07/24 10:00 UNV Levalbuterol HCl 0.625 mg Q6HR NEB 10/13/24 12:00 11/26/24 18:46 0.625 MG Ipratropium [place] 0.5 mg Q6HR NEB 10/13/24 12:00 11/26/24 18:46 0.5 MG Morphine Sulfate 2 mg Q4HPRN PRN IV 10/21/24 11:30 11/10/24 05:15 2 MG Acetaminophen 650 mg Q6HP PRN GT 10/22/24 09:00 11/10/24 08:08 650 MG Pantoprazole Sodium 50 ml @ 0 mls/hr Q0M IV 10/28/24 16:15 Cancel Sodium Chloride 10 ml QSHIFT@10,22 IV 10/31/24 22:00 11/26/24 10:00 10 ML Micafungin Sodium 100 mg/Sodium Chloride 100 ml @ 100 mls/hr DAILY IV 11/02/24 10:00 11/26/24 11:11 100 MLS/HR Acetaminophen/ Hydrocodone Bitart 1 tab Q4HPRN PRN PO 11/06/24 09:15 Amlodipine Besylate 10 mg DAILY GT 11/11/24 10:00 11/26/24 11:08 10 MG Labetalol HCl 10 mg Q2HPRN PRN IV 11/12/24 17:00 11/26/24 19:35 10 MG Hydralazine HCl 50 mg Q8HR GT 11/13/24 14:00 11/26/24 14:51 50 MG Clonidine HCl 0.1 mg Q7D TD 11/13/24 07:00 11/20/24 08:12 0.1 MG Lorazepam 1 mg Q4HP PRN IV 11/14/24 16:15 11/18/24 20:05 1 MG Albuterol 2.5 mg Q3HPRN PRN NEB 11/18/24 10:30 Enoxaparin Sodium 40 mg DAILY SC 11/22/24 10:00 11/26/24 11:07 40 MG Enteral Nutritional Formula 1,000 ml 60ML/HR GT 11/22/24 11:00 11/26/24 06:44 1,000 ML Lactated Ringer's 1,000 ml @ 30 mls/hr Q24H IV 11/24/24 08:45 11/26/24 17:46 30 MLS/HR Lactulose 30 ml Q12HP PRN JT 11/24/24 09:00 Omeprazole 20 mg BID@0600,1700 GT 11/25/24 06:00 11/26/24 17:42 20 MG Labetalol HCl 200 mg Q12HR GT 11/25/24 10:00 11/26/24 11:08 200 MG Nicotine 1 patch DAILY TD 11/26/24 10:00 11/26/24 11:07 1 PATCH objective Gen.: Patient lying in bed in no apparent distress. S/p trach. Breathing on room air. Head: Normocephalic, atraumatic. Eyes: EOMI/PERRLA. Ears: Normal hearing. Normal anatomy. Neck/trachea: Trach in place. Nose: Normal external anatomy. Mouth: Moist mucous membranes. Chest: Decreased air entry bilaterally. No wheezing or rhonchi. Cardiovascular: Positive S1, positive S2. Regular rate and rhythm. Abdomen: Positive bowel sounds in all 4 quadrants. Soft, non-tender, non- distended. : Deferred. Rectal: Deferred. Skin: Warm, dry. Intact. Extremities: 2+ radial pulses bilaterally. No lower extremity edema. Neuro: Awake, alert, oriented x3. No gross motor or sensory deficits. Cranial nerves II through XII intact. Gait not assessed. laboratory and microbiology Laboratory Tests 11/26/24 02:48 Test 11/26/24 02:48 Range/Units Serum Glucose 89 74-106 mg/dL Assessment/Plan Impression: Acute hypoxic respiratory failure S/p tracheostomy Septic shock Perforated viscus s/p repair Nicotine dependence Events: S/p tracheostomy On room air. Remains trached with 8.0 Shiley Trach collar/T-piece Pass[place] valve post successful swallow evaluation Recommend downsizing trach. Trach care per RT. Place off humidified air. Pulmonary toileting IV fluids with LR at 30 ml/hr. NGT Tube feeds for nutritional support Continue bronchodilators Continue antifungal Complete course of antibiotics Repeat blood cultures showed no growth after 5 days Sputum cultures grew normal oropharyngeal dominic. Head of bed elevation Aspiration precautions Monitor Hgb Protonix BID for GI ppx Monitor drain output. CT chest, abdomen and pelvis on 10/19/24 revealed right lower lobe consolidation. Small right pleural effusion with pleural thickening. This could represent pneumonia with parapneumonic effusion. Trace left pleural effusion and left lower lobe consolidation. Labs and imaging reviewed Plan: S/p tracheostomy Supplemental oxygen PRN Titrate to maintain sats above 92% Continue support on vent Place on full vent support if any distress. Trach collar Trach care per RT. Follow up with General Surgery Bronchodilators Continue antibiotics and antifungals F/u cultures Bronchodilators Complete abx course Monitor Hgb Protonix BID for GI ppx Monitor renal function Monitor electrolytes Supplement as needed Follow up Nephrology recommendations Nutritional support DVT prophylaxis Prognosis: Guarded given patient's multiple co-morbidities. Rest of plan per hospitalist and other consultants. Thank you, MESH CUTTER Werner, for allowing me to participate in this patient's care. Further recommendations will depend on the patient's clinical course. Please do not hesitate to contact me if you have any questions or concerns. This medical document was created using an electronic medical record system with [employer] dictation system. Although these documentations are being carefully reviewed, there may still be some phonetic and typographical changes. The errors are purely typographical, due to imperfection on the software program, and do not reflect any compromise in the patient's medical care. Dietary Evaluation Review Comments: 1. Continue TPN to meet at least 75% estimated needs 2. Continue current POC Expected Outcomes/Goals: FU 2-3 days to meet adequate energy & protein within 7 days of NPO Protein Calorie Malnutrition: Severe (rn) Plan discussed with: Patient, Other (JASPER Cervantes) CC Plasma Assessment Blood Product Administration S: [id number] ARIE LOPEZ MD Nov 26, 2024 21:12
--- NOTE | 2024-11-26 22:30 | DVHPN2 ---
Progress Note - Dictate Date Seen: Nov 26, 2024 Has the PT tested + for MRSA If YES, has PT been informed?: No Medical Necessity Reason Pt with a Central, PICC or Fol: Yes The following are medically ne: Central Line, Gómez Catheter Reason for gómez catheter: Strict I&O Subjective Patient is awake and alert Patient passed swallow eval and he is currently on a pureed diet Small-bowel series sewn shows no obstruction No active GI bleeding is reported Cholecystostomy tube is draining bile vital signs Vital Sign Date Time Temp Pulse Resp B/P (MAP) Pulse Ox O2 Delivery O2 Flow Rate FiO2 11/26/24 22:13 83 197/74 11/26/24 18:53 26 100 11/26/24 18:47 Room Air 0.0 11/26/24 18:47 21 11/26/24 18:00 98.8 98.8 Total Intake and Output 11/25/24 11/25/24 11/26/24 15:00 23:00 07:00 Intake Total 310 ml 525 ml 440 ml Output Total 750 ml 800 ml Balance 310 ml -225 ml -360 ml medications Current Medications Medications Dose Ordered Sig/Wally Route Start Time Stop Time Status Last Admin Dose Admin Ondansetron HCl 4 mg Q4HP PRN IV 10/04/24 11:45 Morphine Sulfate 2 mg Q4HPRN PRN IV 10/04/24 11:45 Cancel Morphine Sulfate 2 mg Q30M PRN IV 10/04/24 11:45 Cancel Lorazepam 50 mg/ Sodium Chloride 50 ml @ 1 mls/hr Q24H IV 10/04/24 18:15 Cancel Amino Acids 0 ml @ 0 mls/hr PER PHARMACY IV 10/05/24 14:30 UNV Meropenem 50 ml @ 17 mls/hr Q12HR IV 10/07/24 10:00 UNV Levalbuterol HCl 0.625 mg Q6HR NEB 10/13/24 12:00 11/26/24 18:46 0.625 MG Ipratropium [place] 0.5 mg Q6HR NEB 10/13/24 12:00 11/26/24 18:46 0.5 MG Morphine Sulfate 2 mg Q4HPRN PRN IV 10/21/24 11:30 11/10/24 05:15 2 MG Acetaminophen 650 mg Q6HP PRN GT 10/22/24 09:00 11/10/24 08:08 650 MG Pantoprazole Sodium 50 ml @ 0 mls/hr Q0M IV 10/28/24 16:15 Cancel Sodium Chloride 10 ml QSHIFT@10,22 IV 10/31/24 22:00 11/26/24 22:14 10 ML Micafungin Sodium 100 mg/Sodium Chloride 100 ml @ 100 mls/hr DAILY IV 11/02/24 10:00 11/26/24 11:11 100 MLS/HR Acetaminophen/ Hydrocodone Bitart 1 tab Q4HPRN PRN PO 11/06/24 09:15 Amlodipine Besylate 10 mg DAILY GT 11/11/24 10:00 11/26/24 11:08 10 MG Labetalol HCl 10 mg Q2HPRN PRN IV 11/12/24 17:00 11/26/24 19:35 10 MG Hydralazine HCl 50 mg Q8HR GT 11/13/24 14:00 11/26/24 22:13 50 MG Clonidine HCl 0.1 mg Q7D TD 11/13/24 07:00 11/20/24 08:12 0.1 MG Lorazepam 1 mg Q4HP PRN IV 11/14/24 16:15 11/18/24 20:05 1 MG Albuterol 2.5 mg Q3HPRN PRN NEB 11/18/24 10:30 Enoxaparin Sodium 40 mg DAILY SC 11/22/24 10:00 11/26/24 11:07 40 MG Enteral Nutritional Formula 1,000 ml 60ML/HR GT 11/22/24 11:00 11/26/24 06:44 1,000 ML Lactated Ringer's 1,000 ml @ 30 mls/hr Q24H IV 11/24/24 08:45 11/26/24 17:46 30 MLS/HR Lactulose 30 ml Q12HP PRN JT 11/24/24 09:00 Omeprazole 20 mg BID@0600,1700 GT 11/25/24 06:00 11/26/24 17:42 20 MG Labetalol HCl 200 mg Q12HR GT 11/25/24 10:00 11/26/24 22:13 200 MG Nicotine 1 patch DAILY TD 11/26/24 10:00 11/26/24 11:07 1 PATCH objective General Appearance: Alert, awake on trach collar HEENT: Atraumatic, PERRLA;Mild pallor, NG tube tolerating enteral tube feedings Lungs: Decreased breath sounds at bases) Cardiovascular: Regular rate, Normal S1, Normal S2, Abdomen: soft nontender well-healed midline scar without any drainage, hypoactive bowel sounds Cholecystostomy tube draining bile laboratory and microbiology Laboratory Tests 11/26/24 02:48 Test 11/26/24 02:48 Range/Units Serum Glucose 89 74-106 mg/dL Problems(with codes): (1) Cholecystitis (2) Elevated liver enzymes (3) TIA (transient ischemic attack) (4) Altered mental status (5) Severe anemia (6) Perforated viscus (7) NSTEMI (non-ST elevated myocardial infarction) (8) GI bleed (9) Septic shock (10) Leukocytosis Prognosis Plan Continue supportive care Discontinue Dobbhoff or NG-tube Continue pureed diet Physical therapy Patient's trach size has been decreased Surgical consult has recommended outpatient elective cholecystectomy once medically stabilized Dietary Evaluation Review Comments: 1. Continue TPN to meet at least 75% estimated needs 2. Continue current POC Expected Outcomes/Goals: FU 2-3 days to meet adequate energy & protein within 7 days of NPO Protein Calorie Malnutrition: Severe (rn) Plan discussed with: Patient CC Plasma Assessment Blood Product Administration S: [id number] GURJIT NOBLE MD Nov 26, 2024 22:30
[2024-11-27] VITALS (51 sets, daily range): BP systolic 104–209; BP diastolic 53–100; PULSE 74–105; RESP 17–37; TEMP 97.7–98.2; O2SAT 94–100
[2024-11-27 04:00] LABS: Hemoglobin 7.2 g/dL (13.5-17.5)
[2024-11-27 04:03] LABS: Hematocrit 21.9 % (41.0-53.0); Mean Corpuscular Hemoglobin 28.8 pg (28.0-32.0); Mean Corpuscular Volume 87.7 fL (80.0-100.0); Nucleated Red Blood Cells % 0.3 %
[2024-11-27 04:11] LABS: Anion Gap 9 (5-15); Carbon Dioxide 26 mmol/L (20-31); Chloride 105 mmol/L (98-107); Potassium 3.6 mmol/L (3.5-5.1); Sodium 140 mmol/L (136-145)
[2024-11-27 04:12] LABS: Calcium 9.0 mg/dL (8.7-10.4)
[2024-11-27 04:16] LABS: Glucose 92 mg/dL (74-106)
[2024-11-27 04:17] LABS: BUN/Creatinine Ratio 23.5 (10.0-20.0)
[2024-11-27 04:30] LABS: Blood Urea Nitrogen 28 mg/dL (9-23)
--- NOTE | 2024-11-27 09:27 | DVHPN2 ---
Subjective Patient is alert following commands. Denies any symptoms. Reviewed: Care Plan, H&P, Labs, Medications, Previous Orders, Radiology, Other (Consultants) Changes from previous H/P or p: No Changes General: Per HPI Objective Vitals Vital Signs Date Time Temp Pulse Resp B/P (MAP) Pulse Ox O2 Delivery O2 Flow Rate FiO2 11/27/24 07:34 80 20 96 11/27/24 07:28 Room Air 0.0 11/27/24 07:28 21 11/27/24 06:30 145/62 (89) 11/27/24 05:00 97.9 97.9 Intake/Output Intake and Output 11/27/24 07:00 Intake Total 1090 ml Output Total 1455 ml Balance -365 ml Intake Oral 220 ml IV Total 820 ml Tube Feeding 50 ml Output Urine Total 1280 ml Drainage Total 175 ml # Bowel Movements 2 General Appearance: Alert, Oriented X3, Cooperative, mild distress, Other HEENT: Atraumatic, PERRLA Neck: Other (Tracheostomy) Lungs: Clear to auscultation, Normal air movement, Other Cardiovascular: Normal S1, Normal S2, Other Abdomen: Other Extremities: Normal pulses Neuro: Cranial nerves 3-12 NL, Other Skin: Dry, Intact, Wounds, Other Psych/Mental Status: Other Medications Current Medications Medications Dose Ordered Sig/Wally Route Start Time Stop Time Status Last Admin Dose Admin Ondansetron HCl 4 mg Q4HP PRN IV 10/04/24 11:45 Morphine Sulfate 2 mg Q4HPRN PRN IV 10/04/24 11:45 Cancel Morphine Sulfate 2 mg Q30M PRN IV 10/04/24 11:45 Cancel Lorazepam 50 mg/ Sodium Chloride 50 ml @ 1 mls/hr Q24H IV 10/04/24 18:15 Cancel Amino Acids 0 ml @ 0 mls/hr PER PHARMACY IV 10/05/24 14:30 UNV Meropenem 50 ml @ 17 mls/hr Q12HR IV 10/07/24 10:00 UNV Levalbuterol HCl 0.625 mg Q6HR NEB 10/13/24 12:00 11/27/24 07:28 0.625 MG Ipratropium [place] 0.5 mg Q6HR NEB 10/13/24 12:00 11/27/24 07:28 0.5 MG Morphine Sulfate 2 mg Q4HPRN PRN IV 10/21/24 11:30 11/10/24 05:15 2 MG Acetaminophen 650 mg Q6HP PRN GT 10/22/24 09:00 11/10/24 08:08 650 MG Pantoprazole Sodium 50 ml @ 0 mls/hr Q0M IV 10/28/24 16:15 Cancel Sodium Chloride 10 ml QSHIFT@ IV 10/31/24 22:00 11/26/24 22:14 10 ML Acetaminophen/ Hydrocodone Bitart 1 tab Q4HPRN PRN PO 11/06/24 09:15 Amlodipine Besylate 10 mg DAILY GT 11/11/24 10:00 11/26/24 11:08 10 MG Labetalol HCl 10 mg Q2HPRN PRN IV 11/12/24 17:00 11/27/24 04:40 10 MG Hydralazine HCl 50 mg Q8HR GT 11/13/24 14:00 11/27/24 05:59 50 MG Clonidine HCl 0.1 mg Q7D TD 11/13/24 07:00 11/20/24 08:12 0.1 MG Lorazepam 1 mg Q4HP PRN IV 11/14/24 16:15 11/18/24 20:05 1 MG Albuterol 2.5 mg Q3HPRN PRN NEB 11/18/24 10:30 Enoxaparin Sodium 40 mg DAILY SC 11/22/24 10:00 11/26/24 11:07 40 MG Lactated Ringer's 1,000 ml @ 30 mls/hr Q24H IV 11/24/24 08:45 11/26/24 17:46 30 MLS/HR Lactulose 30 ml Q12HP PRN JT 11/24/24 09:00 Omeprazole 20 mg BID@0600,1700 GT 11/25/24 06:00 11/27/24 05:58 20 MG Labetalol HCl 200 mg Q12HR GT 11/25/24 10:00 11/26/24 22:13 200 MG Nicotine 1 patch DAILY TD 11/26/24 10:00 11/26/24 11:07 1 PATCH Micafungin Sodium 100 mg/Sodium Chloride 100 ml @ 100 mls/hr DAILY IV 11/27/24 10:00 11/27/24 11:00 Enteral Nutritional Formula 4 oz TIDWM PO 11/27/24 12:00 Sucralfate 1 gm TID@0600,1130,2200 PO 11/27/24 09:15 Laboratory Results Laboratory Tests 11/27/24 02:55 Chemistry Test 11/27/24 02:55 Calcium Level 9.0 mg/dL (8.7-10.4) Urinalysis Test 10/05/24 15:05 10/26/24 20:33 11/07/24 12:40 Urine Mucus Few (None Seen) Urine Color Light-yellow (Yellow) Urine Clarity Clear (Clear) Urine pH 7.0 (5.0-9.0) Urine Specific [place] 1.014 (1.001-1.035) Urine Protein 1+ (Negative) H Urine Ketones Negative (Negative) Urine Blood 1+ /uL (Negative) H Urine Nitrite Negative (Negative) Urine Bilirubin Negative (Negative) Urine Urobilinogen Normal mg/dL (Negative) Urine Leukocyte Esterase Negative /uL (Negative) Urine RBC 1 /hpf (0 - 3) Urine Microscopic WBC 3 /HPF (0-3) Urine Squamous Epithelial Cells None seen /hpf (<5) Urine Bacteria Few /hpf (None Seen) H Urine Glucose Normal mg/dL (Normal) Urine Creatinine 64.63 mg/dL (30.0-125.0) Urine Protein/Creatinine Ratio 3.11 Urine Sodium 34 mmol/L (40-220) L Urine Total Protein 200.7 mg/dL (1-14) H Microbiology Microbiology Date/Time Source Procedure Growth Status 11/20/24 09:56 Sputum Gram Stain - Final Complete 11/20/24 09:56 Sputum Respiratory Culture - Final Complete 11/20/24 08:16 Blood Blood Culture - Final NO GROWTH AFTER 5 DAYS OF INCUBATION. Complete 11/10/24 22:44 Voided Urine Urine Culture - Final Complete 10/18/24 09:21 Pleural Fluid Gram Stain - Final Complete 10/18/24 09:21 Pleural Fluid Body Fluid Culture - Final Complete 10/04/24 17:10 Nose MRSA Screen - Final Complete Labs and/or images reviewed: Labs reviewed by me, Image(s) reviewed by me Assessment/Plan Assessment/Plan Impression: -severe septic shock -pneumoperitoneum secondary to perforated gastric ulcer -acute kidney injury, hemodynamically mediated, probable VMN -acute hypoxic respiratory failure -shock liver -nicotine dependence -history of CVA -right upper extremity DVT -multifocal pneumonia, probable Gram-positive/Gram-negative etiology -anemia secondary to nutrition, renal failure -bilateral pleural effusions -small left pneumothorax -Failure of ventilator weaning, status post tracheostomy -fungemia Plan: Events: Patient passed swallow evaluation. Now with Passy Sam valve. If patient is able to tolerate greater than 50% of his meals, Dobbhoff will be removed. Patient reports that he is standing with physical therapy. Discussed with the patient that he needs to attempt to get out of bed to chair for meals. Noted decrease in H&H. Stool for occult blood. Restart Carafate now that patient is taking oral intake. Micafungin to be stopped today. Will discuss downsizing tracheostomy with continuous improvement director -continue current antihypertensive regimen -GI consultation: Discussed case. -antibiotic therapy: Currently on micafungin. White blood cell count normal. Discontinue micafungin if cleared by Infectious Disease -TKO IV fluids -nicotine patch -physical therapy, out of bed as tolerated -repeat labs in am Critical care time spent with patient discussing and formulating plan of care: 40 minutes. This does not include time spent performing procedures. This medical document was created using an electronic medical record system with [employer] dictation system. Although this document has been carefully reviewed, there may still be some phonetic and typographical errors. These areas are purely typographical due to imperfections of the software programs, and do not reflect any compromise in the patient's medical care. Plan discussed with: Patient, Other (RN) My Orders Orders - CHEYENNE PIKE NP Procedure Category Date Status Time Regular Diet DIET 11/26/24 Transmitted Lunch Micafungin Sodium PHA 11/27/24 In Process (Mycamine) 10:00 Nutritional PHA 11/27/24 In Process Supplements (Ensure 12:00 Sucralfate Susp PHA 11/27/24 In Process (Carafate Susp) 09:15 Stool Occult Blood LAB 11/27/24 Verified 09:17 Basic Metabolic Panel LAB 11/28/24 Verified 04:00 Iron Panel LAB 11/28/24 Verified 04:00 Complete Blood Count LAB 11/28/24 Verified 04:00 Date of Service: Nov 27, 2024 Billing Provider: CHEYENNE PIKE NP Common Visit Codes: 89006-[id number] CARE 30-74 MIN CHEYENNE PIKE NP Nov 27, 2024 09:27
[2024-11-27] MEDS: SUCRALFATE 1 GM/10 ML ORAL SUSP PO SCH (10:06)
[2024-11-27] MEDS: MICAFUNGIN SODIUM 100 MG in SODIUM CHL 0.9% 100 ML IV SCH (11:05)
[2024-11-27] MEDS: Ensure Pudding Vanilla 4 oz Cup PO SCH (12:00)
[2024-11-27] MEDS: LACTULOSE 20Gm/30ML SOLN JT PRN (14:18)
--- NOTE | 2024-11-27 23:21 | DVHPN2 ---
Progress Note - Dictate Date Seen: Nov 27, 2024 Has the PT tested + for MRSA If YES, has PT been informed?: No Medical Necessity Reason Pt with a Central, PICC or Fol: Yes The following are medically ne: Central Line, Gómez Catheter Reason for gómez catheter: Strict I&O Subjective Patient seen and examined at bedside. S/p trach. On room air. Overnight events reviewed. vital signs Vital Sign Date Time Temp Pulse Resp B/P (MAP) Pulse Ox O2 Delivery O2 Flow Rate FiO2 11/27/24 22:00 90 11/27/24 22:00 25 97 Room Air* 0 21 11/27/24 21:54 158/78 11/27/24 20:00 98.2 98.2 Total Intake and Output 11/26/24 11/26/24 11/27/24 15:00 23:00 07:00 Intake Total 460 ml 240 ml 390 ml Output Total 825 ml 630 ml Balance 460 ml -585 ml -240 ml medications Current Medications Medications Dose Ordered Sig/Wally Route Start Time Stop Time Status Last Admin Dose Admin Ondansetron HCl 4 mg Q4HP PRN IV 10/04/24 11:45 Morphine Sulfate 2 mg Q4HPRN PRN IV 10/04/24 11:45 Cancel Morphine Sulfate 2 mg Q30M PRN IV 10/04/24 11:45 Cancel Lorazepam 50 mg/ Sodium Chloride 50 ml @ 1 mls/hr Q24H IV 10/04/24 18:15 Cancel Amino Acids 0 ml @ 0 mls/hr PER PHARMACY IV 10/05/24 14:30 UNV Meropenem 50 ml @ 17 mls/hr Q12HR IV 10/07/24 10:00 UNV Levalbuterol HCl 0.625 mg Q6HR NEB 10/13/24 12:00 11/27/24 18:14 0.625 MG Ipratropium [place] 0.5 mg Q6HR NEB 10/13/24 12:00 11/27/24 18:15 0.5 MG Morphine Sulfate 2 mg Q4HPRN PRN IV 10/21/24 11:30 11/10/24 05:15 2 MG Acetaminophen 650 mg Q6HP PRN GT 10/22/24 09:00 11/10/24 08:08 650 MG Pantoprazole Sodium 50 ml @ 0 mls/hr Q0M IV 10/28/24 16:15 Cancel Sodium Chloride 10 ml QSHIFT@10,22 IV 10/31/24 22:00 11/27/24 21:55 10 ML Acetaminophen/ Hydrocodone Bitart 1 tab Q4HPRN PRN PO 11/06/24 09:15 Amlodipine Besylate 10 mg DAILY GT 11/11/24 10:00 11/27/24 10:06 10 MG Labetalol HCl 10 mg Q2HPRN PRN IV 11/12/24 17:00 11/27/24 04:40 10 MG Hydralazine HCl 50 mg Q8HR GT 11/13/24 14:00 11/27/24 21:54 50 MG Clonidine HCl 0.1 mg Q7D TD 11/13/24 07:00 11/27/24 11:07 0.1 MG Lorazepam 1 mg Q4HP PRN IV 11/14/24 16:15 11/18/24 20:05 1 MG Albuterol 2.5 mg Q3HPRN PRN NEB 11/18/24 10:30 Enoxaparin Sodium 40 mg DAILY SC 11/22/24 10:00 11/27/24 10:06 40 MG Lactated Ringer's 1,000 ml @ 30 mls/hr Q24H IV 11/24/24 08:45 11/26/24 17:46 30 MLS/HR Lactulose 30 ml Q12HP PRN JT 11/24/24 09:00 11/27/24 14:18 30 ML Omeprazole 20 mg BID@0600,1700 GT 11/25/24 06:00 11/27/24 17:42 20 MG Labetalol HCl 200 mg Q12HR GT 11/25/24 10:00 11/27/24 21:54 200 MG Nicotine 1 patch DAILY TD 11/26/24 10:00 11/27/24 10:08 1 PATCH Enteral Nutritional Formula 4 oz TIDWM PO 11/27/24 12:00 Sucralfate 1 gm TID@0600,1130,2200 PO 11/27/24 09:15 11/27/24 21:53 1 GM objective Gen.: Patient lying in bed in no apparent distress. S/p trach. Breathing on room air. Head: Normocephalic, atraumatic. Eyes: EOMI/PERRLA. Ears: Normal hearing. Normal anatomy. Neck/trachea: Trach in place. Nose: Normal external anatomy. Mouth: Moist mucous membranes. Chest: Decreased air entry bilaterally. No wheezing or rhonchi. Cardiovascular: Positive S1, positive S2. Regular rate and rhythm. Abdomen: Positive bowel sounds in all 4 quadrants. Soft, non-tender, non- distended. : Deferred. Rectal: Deferred. Skin: Warm, dry. Intact. Extremities: 2+ radial pulses bilaterally. No lower extremity edema. Neuro: Awake, alert, oriented x3. No gross motor or sensory deficits. Cranial nerves II through XII intact. Gait not assessed. laboratory and microbiology Laboratory Tests 11/27/24 02:55 Test 11/27/24 02:55 Range/Units Serum Glucose 92 74-106 mg/dL Assessment/Plan Impression: Acute hypoxic respiratory failure S/p tracheostomy Septic shock Perforated viscus s/p repair Nicotine dependence Events: On room air. Trach in place. Pt underwent successful downsizing of trach to 6.0 cuffed Shiley Procedure was uneventful. Trach collar/T-piece Passy Sam valve Trach care per RT. Place off humidified air. Pulmonary toileting Swallow eval passed On puree diet. Continue bronchodilators Continue antifungal Complete course of antibiotics Repeat blood cultures showed no growth after 5 days Sputum cultures grew normal oropharyngeal dominic. Head of bed elevation Aspiration precautions Monitor Hgb Protonix BID for GI ppx Monitor drain output. CT chest, abdomen and pelvis on 10/19/24 revealed right lower lobe consolidation. Small right pleural effusion with pleural thickening. This could represent pneumonia with parapneumonic effusion. Trace left pleural effusion and left lower lobe consolidation. Labs and imaging reviewed Plan: S/p tracheostomy Supplemental oxygen PRN Titrate to maintain sats above 92% Continue support on vent Place on full vent support if any distress. Trach collar Trach care per RT. Follow up with General Surgery Bronchodilators Continue antibiotics and antifungals F/u cultures Bronchodilators Complete abx course Monitor Hgb Protonix BID for GI ppx Monitor renal function Monitor electrolytes Supplement as needed Follow up Nephrology recommendations Nutritional support DVT prophylaxis Prognosis: Guarded given patient's multiple co-morbidities. Rest of plan per hospitalist and other consultants. Thank you, NIDIA Caldera, for allowing me to participate in this patient's care. Further recommendations will depend on the patient's clinical course. Please do not hesitate to contact me if you have any questions or concerns. This medical document was created using an electronic medical record system with [employer] dictation system. Although these documentations are being carefully reviewed, there may still be some phonetic and typographical changes. The errors are purely typographical, due to imperfection on the software program, and do not reflect any compromise in the patient's medical care. Dietary Evaluation Review Comments: 1. Continue TPN to meet at least 75% estimated needs 2. Continue current POC Expected Outcomes/Goals: FU 2-3 days to meet adequate energy & protein within 7 days of NPO Protein Calorie Malnutrition: Severe (rn) Plan discussed with: Patient, Other (JASPER Cervantes) CC Plasma Assessment Blood Product Administration S: [id number] ARIE LOPEZ MD Nov 27, 2024 23:21
[2024-11-28] VITALS (85 sets, daily range): BP systolic 130–185; BP diastolic 64–98; PULSE 67–100; RESP 20–38; TEMP 98.1–98.7; O2SAT 91–100
[2024-11-28 03:49] LABS: Hematocrit 21.2 % (41.0-53.0); Nucleated Red Blood Cells % 0.1 %
[2024-11-28 03:53] LABS: Mean Corpuscular Hemoglobin 28.5 pg (28.0-32.0); Mean Corpuscular Volume 87.8 fL (80.0-100.0)
[2024-11-28 03:55] LABS: Hemoglobin 6.9 g/dL (13.5-17.5)
[2024-11-28 04:01] LABS: Anion Gap 8 (5-15); Carbon Dioxide 26 mmol/L (20-31); Chloride 104 mmol/L (98-107); Potassium 3.8 mmol/L (3.5-5.1); Sodium 138 mmol/L (136-145)
[2024-11-28 04:07] LABS: BUN/Creatinine Ratio 20.0 (10.0-20.0); Blood Urea Nitrogen 20 mg/dL (9-23); Glucose 93 mg/dL (74-106)
[2024-11-28 04:11] LABS: Calcium 8.3 mg/dL (8.7-10.4); Iron 35.0 ug/dL (65-175); Total Iron Binding Capacity 191.0 ug/dL (250-425)
--- NOTE | 2024-11-28 08:58 | DVHPN2 ---
Subjective Patient is alert following commands. Denies any symptoms. Reviewed: Care Plan, H&P, Labs, Medications, Previous Orders, Radiology, Other (Consultants) Changes from previous H/P or p: No Changes General: Per HPI Objective Vitals Vital Signs Date Time Temp Pulse Resp B/P (MAP) Pulse Ox O2 Delivery O2 Flow Rate FiO2 11/28/24 08:00 84 26 95 11/28/24 06:52 Room Air* 0 21 11/28/24 04:00 98.2 98.2 Intake/Output Intake and Output 11/28/24 07:00 Intake Total 2350 ml Output Total 1650 ml Balance 700 ml Intake Oral 1560 ml IV Total 790 ml Tube Feeding 0 ml Output Urine Total 1300 ml Drainage Total 350 ml # Bowel Movements 2 General Appearance: Alert, Oriented X3, Cooperative, mild distress, Other HEENT: Atraumatic, PERRLA Neck: Other (Tracheostomy) Lungs: Clear to auscultation, Normal air movement, Other Cardiovascular: Normal S1, Normal S2, Other Abdomen: Other Extremities: Normal pulses Neuro: Cranial nerves 3-12 NL, Other Skin: Dry, Intact, Wounds, Other Psych/Mental Status: Other Medications Current Medications Medications Dose Ordered Sig/Wally Route Start Time Stop Time Status Last Admin Dose Admin Ondansetron HCl 4 mg Q4HP PRN IV 10/04/24 11:45 Morphine Sulfate 2 mg Q4HPRN PRN IV 10/04/24 11:45 Cancel Morphine Sulfate 2 mg Q30M PRN IV 10/04/24 11:45 Cancel Lorazepam 50 mg/ Sodium Chloride 50 ml @ 1 mls/hr Q24H IV 10/04/24 18:15 Cancel Amino Acids 0 ml @ 0 mls/hr PER PHARMACY IV 10/05/24 14:30 UNV Meropenem 50 ml @ 17 mls/hr Q12HR IV 10/07/24 10:00 UNV Levalbuterol HCl 0.625 mg Q6HR NEB 10/13/24 12:00 11/28/24 06:46 0.625 MG Ipratropium [place] 0.5 mg Q6HR NEB 10/13/24 12:00 11/28/24 06:46 0.5 MG Morphine Sulfate 2 mg Q4HPRN PRN IV 10/21/24 11:30 11/10/24 05:15 2 MG Acetaminophen 650 mg Q6HP PRN GT 10/22/24 09:00 11/10/24 08:08 650 MG Pantoprazole Sodium 50 ml @ 0 mls/hr Q0M IV 10/28/24 16:15 Cancel Sodium Chloride 10 ml QSHIFT@10,22 IV 10/31/24 22:00 11/27/24 21:55 10 ML Acetaminophen/ Hydrocodone Bitart 1 tab Q4HPRN PRN PO 11/06/24 09:15 Labetalol HCl 10 mg Q2HPRN PRN IV 11/12/24 17:00 11/27/24 04:40 10 MG Hydralazine HCl 50 mg Q8HR GT 11/13/24 14:00 11/28/24 05:46 50 MG Clonidine HCl 0.1 mg Q7D TD 11/13/24 07:00 11/27/24 11:07 0.1 MG Lorazepam 1 mg Q4HP PRN IV 11/14/24 16:15 11/28/24 05:31 1 MG Albuterol 2.5 mg Q3HPRN PRN NEB 11/18/24 10:30 Enoxaparin Sodium 40 mg DAILY SC 11/22/24 10:00 11/27/24 10:06 40 MG Lactated Ringer's 1,000 ml @ 30 mls/hr Q24H IV 11/24/24 08:45 11/26/24 17:46 30 MLS/HR Lactulose 30 ml Q12HP PRN JT 11/24/24 09:00 11/27/24 14:18 30 ML Omeprazole 20 mg BID@0600,1700 GT 11/25/24 06:00 11/28/24 05:46 20 MG Labetalol HCl 200 mg Q12HR GT 11/25/24 10:00 11/27/24 21:54 200 MG Nicotine 1 patch DAILY TD 11/26/24 10:00 11/27/24 10:08 1 PATCH Enteral Nutritional Formula 4 oz TIDWM PO 11/27/24 12:00 Sucralfate 1 gm TID@0600,1130,2200 PO 11/27/24 09:15 11/28/24 05:46 1 GM Laboratory Results Laboratory Tests 11/28/24 02:53 Chemistry Test 11/28/24 02:53 Calcium Level 8.3 mg/dL (8.7-10.4) L Urinalysis Test 10/05/24 15:05 10/26/24 20:33 11/07/24 12:40 Urine Mucus Few (None Seen) Urine Color Light-yellow (Yellow) Urine Clarity Clear (Clear) Urine pH 7.0 (5.0-9.0) Urine Specific [place] 1.014 (1.001-1.035) Urine Protein 1+ (Negative) H Urine Ketones Negative (Negative) Urine Blood 1+ /uL (Negative) H Urine Nitrite Negative (Negative) Urine Bilirubin Negative (Negative) Urine Urobilinogen Normal mg/dL (Negative) Urine Leukocyte Esterase Negative /uL (Negative) Urine RBC 1 /hpf (0 - 3) Urine Microscopic WBC 3 /HPF (0-3) Urine Squamous Epithelial Cells None seen /hpf (<5) Urine Bacteria Few /hpf (None Seen) H Urine Glucose Normal mg/dL (Normal) Urine Creatinine 64.63 mg/dL (30.0-125.0) Urine Protein/Creatinine Ratio 3.11 Urine Sodium 34 mmol/L (40-220) L Urine Total Protein 200.7 mg/dL (1-14) H Microbiology Microbiology Date/Time Source Procedure Growth Status 11/20/24 09:56 Sputum Gram Stain - Final Complete 11/20/24 09:56 Sputum Respiratory Culture - Final Complete 11/20/24 08:16 Blood Blood Culture - Final NO GROWTH AFTER 5 DAYS OF INCUBATION. Complete 11/10/24 22:44 Voided Urine Urine Culture - Final Complete 10/18/24 09:21 Pleural Fluid Gram Stain - Final Complete 10/18/24 09:21 Pleural Fluid Body Fluid Culture - Final Complete 10/04/24 17:10 Nose MRSA Screen - Final Complete Labs and/or images reviewed: Labs reviewed by me, Image(s) reviewed by me Assessment/Plan Assessment/Plan Impression: -severe septic shock -pneumoperitoneum secondary to perforated gastric ulcer -acute kidney injury, hemodynamically mediated, probable VMN -acute hypoxic respiratory failure -shock liver -nicotine dependence -history of CVA -right upper extremity DVT -multifocal pneumonia, probable Gram-positive/Gram-negative etiology -anemia secondary to nutrition, renal failure -bilateral pleural effusions -small left pneumothorax -Failure of ventilator weaning, status post tracheostomy -fungemia Plan: Events: Patient had downsizing tracheostomy. Pulled out Dobbhoff tube yesterday. Repeat stool for occult blood positive. Noted worsening anemia with 1 unit PRBC to be transfused. Accelerated hypertension noted. -stop enoxaparin -start Protonix 40 mg IV twice a day -antihypertensive regimen: Stop amlodipine. Start Procardia XL 60 mg p.o. daily, continue labetalol 200 mg p.o. b.i.d., hydralazine 50 mg p.o. 3 times a day -GI consultation: Discussed case. -antimicrobial regimen completed -TKO IV fluids -nicotine patch -physical therapy, out of bed as tolerated -repeat labs in am Critical care time spent with patient discussing and formulating plan of care: 40 minutes. This does not include time spent performing procedures. This medical document was created using an electronic medical record system with [employer] dictation system. Although this document has been carefully reviewed, there may still be some phonetic and typographical errors. These areas are purely typographical due to imperfections of the software programs, and do not reflect any compromise in the patient's medical care. Plan discussed with: Patient, Other (RN) My Orders Orders - CHEYENNE PIKE NP Procedure Category Date Status Time Sucralfate Susp PHA 11/27/24 In Process (Carafate Susp) 09:15 Discontinue Ng ORDERS 11/27/24 Transmitted 17:08 Nifedipine Er PHA 11/28/24 In Process (Procardia Xl 10:00 Basic Metabolic Panel LAB 11/29/24 Verified 04:00 Complete Blood Count LAB 11/29/24 Verified 04:00 Pantoprazole PHA 11/28/24 Verified (Protonix) 10:00 Date of Service: Nov 28, 2024 Billing Provider: CHEYENNE PIKE NP Common Visit Codes: 97812-[id number] CARE 30-74 MIN CHEYENNE PIKE NP Nov 28, 2024 08:58
[2024-11-28] MEDS: PANTOPRAZOLE 40 MG/10 ML VIAL INJ IV SCH (10:34)
[2024-11-28] MEDS: Ensure Enlive Strawberry 8oz Bottle PO SCH (12:00)
--- NOTE | 2024-11-28 12:11 | DVHPN2 ---
Progress Note - Dictate Date Seen: Nov 28, 2024 Has the PT tested + for MRSA If YES, has PT been informed?: No Medical Necessity Reason Pt with a Central, PICC or Fol: Yes The following are medically ne: Central Line, Gómez Catheter Reason for gómez catheter: Strict I&O vital signs Vital Sign Date Time Temp Pulse Resp B/P (MAP) Pulse Ox O2 Delivery O2 Flow Rate FiO2 11/28/24 12:05 96 Room Air* 0 21 11/28/24 12:03 67 23 11/28/24 11:30 173/97 11/28/24 10:08 98.6 98.6 Total Intake and Output 11/27/24 11/27/24 11/28/24 15:00 23:00 07:00 Intake Total 340 ml 480 ml 1530 ml Output Total 875 ml 775 ml Balance 340 ml -395 ml 755 ml medications Current Medications Medications Dose Ordered Sig/Wally Route Start Time Stop Time Status Last Admin Dose Admin Ondansetron HCl 4 mg Q4HP PRN IV 10/04/24 11:45 Morphine Sulfate 2 mg Q4HPRN PRN IV 10/04/24 11:45 Cancel Morphine Sulfate 2 mg Q30M PRN IV 10/04/24 11:45 Cancel Lorazepam 50 mg/ Sodium Chloride 50 ml @ 1 mls/hr Q24H IV 10/04/24 18:15 Cancel Amino Acids 0 ml @ 0 mls/hr PER PHARMACY IV 10/05/24 14:30 UNV Meropenem 50 ml @ 17 mls/hr Q12HR IV 10/07/24 10:00 UNV Levalbuterol HCl 0.625 mg Q6HR NEB 10/13/24 12:00 11/28/24 12:02 0.625 MG Ipratropium [place] 0.5 mg Q6HR NEB 10/13/24 12:00 11/28/24 12:02 0.5 MG Morphine Sulfate 2 mg Q4HPRN PRN IV 10/21/24 11:30 11/10/24 05:15 2 MG Acetaminophen 650 mg Q6HP PRN GT 10/22/24 09:00 11/10/24 08:08 650 MG Pantoprazole Sodium 50 ml @ 0 mls/hr Q0M IV 10/28/24 16:15 Cancel Sodium Chloride 10 ml QSHIFT@10,22 IV 10/31/24 22:00 11/28/24 09:24 10 ML Acetaminophen/ Hydrocodone Bitart 1 tab Q4HPRN PRN PO 11/06/24 09:15 Labetalol HCl 10 mg Q2HPRN PRN IV 11/12/24 17:00 11/27/24 04:40 10 MG Hydralazine HCl 50 mg Q8HR GT 11/13/24 14:00 11/28/24 05:46 50 MG Clonidine HCl 0.1 mg Q7D TD 11/13/24 07:00 11/27/24 11:07 0.1 MG Lorazepam 1 mg Q4HP PRN IV 11/14/24 16:15 11/28/24 05:31 1 MG Albuterol 2.5 mg Q3HPRN PRN NEB 11/18/24 10:30 Lactated Ringer's 1,000 ml @ 30 mls/hr Q24H IV 11/24/24 08:45 11/28/24 08:45 30 MLS/HR Lactulose 30 ml Q12HP PRN JT 11/24/24 09:00 11/27/24 14:18 30 ML Labetalol HCl 200 mg Q12HR GT 11/25/24 10:00 11/28/24 09:09 200 MG Nicotine 1 patch DAILY TD 11/26/24 10:00 11/28/24 09:23 1 PATCH Sucralfate 1 gm TID@0600,1130,2200 PO 11/27/24 09:15 11/28/24 11:37 1 GM Pantoprazole Sodium 40 mg BID IV 11/28/24 10:00 11/28/24 10:34 40 MG Enteral Nutritional Formula 240 ml TIDWM PO 11/28/24 12:00 laboratory and microbiology Laboratory Tests 11/28/24 02:53 Test 11/28/24 02:53 Range/Units Serum Glucose 93 74-106 mg/dL Assessment/Plan Impression Acute hypoxemic respiratory failure S/p tracheostomy Perforated viscus Septic shock Smoker Patient seen and examined in ICU Events S/p tracheostomy cuffless Tolerating trache collar on room air No distress Labs and imaging reviewed ABG reviewed Management Trache collar trache care per RT completed abx afebrile Bronchodilators Monitor renal function Monitor electrolytes Supplement as needed HD per nephrology Nutritional support pt on soft diet advance as tolerated Okay to downgrade to ANNIE DVT prophylaxis Critical care time 35 minutes Dietary Evaluation Review Comments: 1. Continue TPN to meet at least 75% estimated needs 2. Continue current POC Expected Outcomes/Goals: FU 2-3 days to meet adequate energy & protein within 7 days of NPO Protein Calorie Malnutrition: Severe (rn) Plan discussed with: Patient CC Plasma Assessment Blood Product Administration S: [id number] VALENTE DEE MD Nov 28, 2024 12:11
--- NOTE | 2024-11-28 17:30 | DVHPN2 ---
Consult Progress Note Date Seen: Nov 27, 2024 Subjective Patient reports: Feels better (remains clinically stable , ongoing heavy output from drain , no vission issues ) Objective vital signs Vital Sign Date Time Temp Pulse Resp B/P (MAP) Pulse Ox O2 Delivery O2 Flow Rate FiO2 11/28/24 15:30 89 23 146/86 (106) 95 11/28/24 14:00 Room Air* 0 21 11/28/24 10:08 98.6 98.6 Total Intake and Output 11/27/24 11/27/24 11/28/24 15:00 23:00 07:00 Intake Total 340 ml 480 ml 1560 ml Output Total 875 ml 775 ml Balance 340 ml -395 ml 785 ml medications Current Medications Medications Dose Ordered Sig/Wally Route Start Time Stop Time Status Last Admin Dose Admin Ondansetron HCl 4 mg Q4HP PRN IV 10/04/24 11:45 Morphine Sulfate 2 mg Q4HPRN PRN IV 10/04/24 11:45 Cancel Morphine Sulfate 2 mg Q30M PRN IV 10/04/24 11:45 Cancel Lorazepam 50 mg/ Sodium Chloride 50 ml @ 1 mls/hr Q24H IV 10/04/24 18:15 Cancel Amino Acids 0 ml @ 0 mls/hr PER PHARMACY IV 10/05/24 14:30 UNV Meropenem 50 ml @ 17 mls/hr Q12HR IV 10/07/24 10:00 UNV Levalbuterol HCl 0.625 mg Q6HR NEB 10/13/24 12:00 11/28/24 12:02 0.625 MG Ipratropium [place] 0.5 mg Q6HR NEB 10/13/24 12:00 11/28/24 12:02 0.5 MG Morphine Sulfate 2 mg Q4HPRN PRN IV 10/21/24 11:30 11/10/24 05:15 2 MG Acetaminophen 650 mg Q6HP PRN GT 10/22/24 09:00 11/10/24 08:08 650 MG Pantoprazole Sodium 50 ml @ 0 mls/hr Q0M IV 10/28/24 16:15 Cancel Sodium Chloride 10 ml QSHIFT@10,22 IV 10/31/24 22:00 11/28/24 09:24 10 ML Acetaminophen/ Hydrocodone Bitart 1 tab Q4HPRN PRN PO 11/06/24 09:15 Labetalol HCl 10 mg Q2HPRN PRN IV 11/12/24 17:00 11/27/24 04:40 10 MG Hydralazine HCl 50 mg Q8HR GT 11/13/24 14:00 11/28/24 14:16 50 MG Clonidine HCl 0.1 mg Q7D TD 11/13/24 07:00 11/27/24 11:07 0.1 MG Lorazepam 1 mg Q4HP PRN IV 11/14/24 16:15 11/28/24 05:31 1 MG Albuterol 2.5 mg Q3HPRN PRN NEB 11/18/24 10:30 Lactated Ringer's 1,000 ml @ 30 mls/hr Q24H IV 11/24/24 08:45 11/28/24 08:45 30 MLS/HR Lactulose 30 ml Q12HP PRN JT 11/24/24 09:00 11/27/24 14:18 30 ML Labetalol HCl 200 mg Q12HR GT 11/25/24 10:00 11/28/24 09:09 200 MG Nicotine 1 patch DAILY TD 11/26/24 10:00 11/28/24 09:23 1 PATCH Sucralfate 1 gm TID@0600,1130,2200 PO 11/27/24 09:15 11/28/24 11:37 1 GM Pantoprazole Sodium 40 mg BID IV 11/28/24 10:00 11/28/24 10:34 40 MG Enteral Nutritional Formula 240 ml TIDWM PO 11/28/24 12:00 11/28/24 12:00 240 ML laboratory and microbiology Laboratory Tests 11/28/24 02:53 Test 11/28/24 02:53 Range/Units Serum Glucose 93 74-106 mg/dL Problem List/Assessment/Plan Problems(with codes): (1) Elevated liver enzymes (2) Cholecystitis (3) Shock (4) Altered mental status (5) TIA (transient ischemic attack) (6) Troponin level elevated Problem List/Assessment/Plan Patient is a 48 year old male with a past medical history of stroke , hypertension , emphysema. patient was brought in by family due to mental status . Patient was having constipation for several days prior to admission . CT abdomen and pelvis showed a perforated viscus and surgery was consulted . Xlab was done , patient was found to have pepticles for perforation at levels of pylori of about 6 cm . Surgical corrected was performed . 3 catheters were placed and patient was admitted to ICU and put on pressers and IV antibiotics. liver ultrasound showed gallbladder wall thickening and pericolic cystitis edema consistent with acute cholecystitis due to hemodynamic instability . percutaneous cholecystostomy was placed by IR rather than surgical drainage . patient developed multifocal pneumonia and covered by antibiotics and patient underwent thoracentesis as well as chest tube placement . chest tube has been removed , right sided cholecystostomy tube remains in place . patient was trachea on october 27 2024 . Infectious disease was consulted due to blood cultures being persistently positive for peña albakins . patient has been on micafungin and meropenem . Patient is febrile with a T-max of 103 , with worsening anemia . Hemoglobin is 6.6 and received a blood transfusion . Likely the etiology of persistent fungemia include line related as patient has a midline placed white patient was actively fungemic . Would also be concerned about untreated source of bowel leak . endocarditis also remains a small possibility as well Last Ct abdomen and pelvis was done with contrast and showed no evidence of bowel leak 11/11: unable to communicate besides yes and no . on trach collar . 150ccs of cholecystostomy drainage . 11/12: blood cultures came back negative x1 , will need a minimum o f14 days micafungin . remains 8 liters trach collar with ongoing significant drainage through the cholecystostomy tube 11/13: not having abdominal pains . blood cultures were positive for yeast . midline has been removed . TTE is negative 11/14: midline was removed . repeat blood cultures are no growth to date 11/15: blood cultures remain negative . whitecount has normalized and off all pressers and breathing well on 8 liters trach collar 11/16: blood cultures remain negative , drainage from abdominal drain is slowing as well 11/17: chest xray shows patchy bilateral airspace disease . whitecount remains normal 11/18: blood pressers are stable 11/19: potassium is low at times 11/20: most likely explanation for fevers and leukocytosis is aspiration pneumonitis 11/21: chest xray shows bilateral airspace disease 11/22: doing well on room air , no signs of pneumonia . sputum culture is showing normal domiinc 11/23: potassium at 3.2 , still requiring electrolyte replacements frequently 11/24: having bowel movements and tolerating tube feeds 11/25: small bowel series testing has been done and normal bowel transit time 11/26: stability off meropenem 11/27: getting trach care , hemoglobin 6.9 , unclear where patient may be bleeding from Plan : - patient has a drop in hemoglobin and defer to primary team for workup - continue to monitor clinically - continue micafungin until 11/28/24 - f/u on pending respiratory cultures - continue envance for now - ongoing infection is unlikely at this point so long as drain remains in place - would consider repeat imaging once drain has been removed given high amounts of drain thats persisted for over 2 months now - repeat blood cultures after midline is removed - recommend Barrios exchange of the urine catheter - avoid unnecessary TPN and steroid use Authorized and Performed by: Jessica Woodard Total critical care time: Approximately 76 minutes Due to a high probability of clinically significant, life threatening deterioration, the patient required my highest level of preparedness to intervene emergently and I personally spent this critical care time directly and personally managing the patient. This critical care time included obtaining a history; examining the patient; pulse oximetry; ordering and review of studies; arranging urgent treatment with development of a management plan; evaluation of patient's response to treatment; frequent reassessment; and, discussions with other providers. This critical care time was performed to assess and manage the high probability of imminent, life-threatening deterioration that could result in multi-organ failure. It was exclusive of separately billable procedures and treating other patients and teaching time. Plan discussed with: Other Dietary Evaluation Review Comments: 1. Continue TPN to meet at least 75% estimated needs 2. Continue current POC Expected Outcomes/Goals: FU 2-3 days to meet adequate energy & protein within 7 days of NPO Protein Calorie Malnutrition: Severe (rn) CC Plasma Assessment Blood Product Administration S: [id number] JESSICA WOODARD MD Nov 28, 2024 17:30
--- NOTE | 2024-11-28 17:30 | DVHPN2 ---
Consult Progress Note Date Seen: Nov 26, 2024 Subjective Patient reports: Other (switched to puree diet , breathing through trach , no blood seen on drain but still has heavy output from abdominal drain ) Objective vital signs Vital Sign Date Time Temp Pulse Resp B/P (MAP) Pulse Ox O2 Delivery O2 Flow Rate FiO2 11/28/24 15:30 89 23 146/86 (106) 95 11/28/24 14:00 Room Air* 0 21 11/28/24 10:08 98.6 98.6 Total Intake and Output 11/27/24 11/27/24 11/28/24 15:00 23:00 07:00 Intake Total 340 ml 480 ml 1560 ml Output Total 875 ml 775 ml Balance 340 ml -395 ml 785 ml medications Current Medications Medications Dose Ordered Sig/Wally Route Start Time Stop Time Status Last Admin Dose Admin Ondansetron HCl 4 mg Q4HP PRN IV 10/04/24 11:45 Morphine Sulfate 2 mg Q4HPRN PRN IV 10/04/24 11:45 Cancel Morphine Sulfate 2 mg Q30M PRN IV 10/04/24 11:45 Cancel Lorazepam 50 mg/ Sodium Chloride 50 ml @ 1 mls/hr Q24H IV 10/04/24 18:15 Cancel Amino Acids 0 ml @ 0 mls/hr PER PHARMACY IV 10/05/24 14:30 UNV Meropenem 50 ml @ 17 mls/hr Q12HR IV 10/07/24 10:00 UNV Levalbuterol HCl 0.625 mg Q6HR NEB 10/13/24 12:00 11/28/24 12:02 0.625 MG Ipratropium [place] 0.5 mg Q6HR NEB 10/13/24 12:00 11/28/24 12:02 0.5 MG Morphine Sulfate 2 mg Q4HPRN PRN IV 10/21/24 11:30 11/10/24 05:15 2 MG Acetaminophen 650 mg Q6HP PRN GT 10/22/24 09:00 11/10/24 08:08 650 MG Pantoprazole Sodium 50 ml @ 0 mls/hr Q0M IV 10/28/24 16:15 Cancel Sodium Chloride 10 ml QSHIFT@ IV 10/31/24 22:00 11/28/24 09:24 10 ML Acetaminophen/ Hydrocodone Bitart 1 tab Q4HPRN PRN PO 11/06/24 09:15 Labetalol HCl 10 mg Q2HPRN PRN IV 11/12/24 17:00 11/27/24 04:40 10 MG Hydralazine HCl 50 mg Q8HR GT 11/13/24 14:00 11/28/24 14:16 50 MG Clonidine HCl 0.1 mg Q7D TD 11/13/24 07:00 11/27/24 11:07 0.1 MG Lorazepam 1 mg Q4HP PRN IV 11/14/24 16:15 11/28/24 05:31 1 MG Albuterol 2.5 mg Q3HPRN PRN NEB 11/18/24 10:30 Lactated Ringer's 1,000 ml @ 30 mls/hr Q24H IV 11/24/24 08:45 11/28/24 08:45 30 MLS/HR Lactulose 30 ml Q12HP PRN JT 11/24/24 09:00 11/27/24 14:18 30 ML Labetalol HCl 200 mg Q12HR GT 11/25/24 10:00 11/28/24 09:09 200 MG Nicotine 1 patch DAILY TD 11/26/24 10:00 11/28/24 09:23 1 PATCH Sucralfate 1 gm TID@0600,1130,2200 PO 11/27/24 09:15 11/28/24 11:37 1 GM Pantoprazole Sodium 40 mg BID IV 11/28/24 10:00 11/28/24 10:34 40 MG Enteral Nutritional Formula 240 ml TIDWM PO 11/28/24 12:00 11/28/24 12:00 240 ML laboratory and microbiology Laboratory Tests 11/28/24 02:53 Test 11/28/24 02:53 Range/Units Serum Glucose 93 74-106 mg/dL Problem List/Assessment/Plan Problems(with codes): (1) Elevated liver enzymes (2) Cholecystitis (3) TIA (transient ischemic attack) (4) Troponin level elevated (5) Shock (6) Altered mental status (7) Severe anemia Problem List/Assessment/Plan Patient is a 48 year old male with a past medical history of stroke , hypertension , emphysema. patient was brought in by family due to mental status . Patient was having constipation for several days prior to admission . CT abdomen and pelvis showed a perforated viscus and surgery was consulted . Xlab was done , patient was found to have pepticles for perforation at levels of pylori of about 6 cm . Surgical corrected was performed . 3 catheters were placed and patient was admitted to ICU and put on pressers and IV antibiotics. liver ultrasound showed gallbladder wall thickening and pericolic cystitis edema consistent with acute cholecystitis due to hemodynamic instability . percutaneous cholecystostomy was placed by IR rather than surgical drainage . patient developed multifocal pneumonia and covered by antibiotics and patient underwent thoracentesis as well as chest tube placement . chest tube has been removed , right sided cholecystostomy tube remains in place . patient was trachea on october 27 2024 . Infectious disease was consulted due to blood cultures being persistently positive for peña albakins . patient has been on micafungin and meropenem . Patient is febrile with a T-max of 103 , with worsening anemia . Hemoglobin is 6.6 and received a blood transfusion . Likely the etiology of persistent fungemia include line related as patient has a midline placed white patient was actively fungemic . Would also be concerned about untreated source of bowel leak . endocarditis also remains a small possibility as well Last Ct abdomen and pelvis was done with contrast and showed no evidence of bowel leak 11/11: unable to communicate besides yes and no . on trach collar . 150ccs of cholecystostomy drainage . 11/12: blood cultures came back negative x1 , will need a minimum o f14 days micafungin . remains 8 liters trach collar with ongoing significant drainage through the cholecystostomy tube 11/13: not having abdominal pains . blood cultures were positive for yeast . midline has been removed . TTE is negative 11/14: midline was removed . repeat blood cultures are no growth to date 11/15: blood cultures remain negative . whitecount has normalized and off all pressers and breathing well on 8 liters trach collar 11/16: blood cultures remain negative , drainage from abdominal drain is slowing as well 11/17: chest xray shows patchy bilateral airspace disease . whitecount remains normal 11/18: blood pressers are stable 72: potassium is low at times 11/20: most likely explanation for fevers and leukocytosis is aspiration pneumonitis 11/21: chest xray shows bilateral airspace disease 11/22: doing well on room air , no signs of pneumonia . sputum culture is showing normal dominic 11/23: potassium at 3.2 , still requiring electrolyte replacements frequently 11/24: having bowel movements and tolerating tube feeds 11/25: small bowel series testing has been done and normal bowel transit time 11/26: stability off meropenem Plan : - continue to monitor clinically - continue micafungin until 11/28/24 - f/u on pending respiratory cultures - continue envance for now - ongoing infection is unlikely at this point so long as drain remains in place - would consider repeat imaging once drain has been removed given high amounts of drain thats persisted for over 2 months now - repeat blood cultures after midline is removed - recommend Barrios exchange of the urine catheter - avoid unnecessary TPN and steroid use Authorized and Performed by: Jessica Woodard Total critical care time: Approximately 76 minutes Due to a high probability of clinically significant, life threatening deterioration, the patient required my highest level of preparedness to intervene emergently and I personally spent this critical care time directly and personally managing the patient. This critical care time included obtaining a history; examining the patient; pulse oximetry; ordering and review of studies; arranging urgent treatment with development of a management plan; evaluation of patient's response to treatment; frequent reassessment; and, discussions with other providers. This critical care time was performed to assess and manage the high probability of imminent, life-threatening deterioration that could result in multi-organ failure. It was exclusive of separately billable procedures and treating other patients and teaching time. Plan discussed with: Other Dietary Evaluation Review Comments: 1. Continue TPN to meet at least 75% estimated needs 2. Continue current POC Expected Outcomes/Goals: FU 2-3 days to meet adequate energy & protein within 7 days of NPO Protein Calorie Malnutrition: Severe (rn) CC Plasma Assessment Blood Product Administration S: [id number] JESSICA WOODARD MD Nov 28, 2024 17:30
--- NOTE | 2024-11-28 17:31 | DVHPN2 ---
Consult Progress Note Date Seen: Nov 28, 2024 Subjective Patient reports: No new complaints (blood cultures remain negative , tolerating diet , abdominal drain without any pain and appears clean ) Objective vital signs Vital Sign Date Time Temp Pulse Resp B/P (MAP) Pulse Ox O2 Delivery O2 Flow Rate FiO2 11/28/24 15:30 89 23 146/86 (106) 95 11/28/24 14:00 Room Air* 0 21 11/28/24 10:08 98.6 98.6 Total Intake and Output 11/27/24 11/27/24 11/28/24 15:00 23:00 07:00 Intake Total 340 ml 480 ml 1560 ml Output Total 875 ml 775 ml Balance 340 ml -395 ml 785 ml medications Current Medications Medications Dose Ordered Sig/Wally Route Start Time Stop Time Status Last Admin Dose Admin Ondansetron HCl 4 mg Q4HP PRN IV 10/04/24 11:45 Morphine Sulfate 2 mg Q4HPRN PRN IV 10/04/24 11:45 Cancel Morphine Sulfate 2 mg Q30M PRN IV 10/04/24 11:45 Cancel Lorazepam 50 mg/ Sodium Chloride 50 ml @ 1 mls/hr Q24H IV 10/04/24 18:15 Cancel Amino Acids 0 ml @ 0 mls/hr PER PHARMACY IV 10/05/24 14:30 UNV Meropenem 50 ml @ 17 mls/hr Q12HR IV 10/07/24 10:00 UNV Levalbuterol HCl 0.625 mg Q6HR NEB 10/13/24 12:00 11/28/24 12:02 0.625 MG Ipratropium [place] 0.5 mg Q6HR NEB 10/13/24 12:00 11/28/24 12:02 0.5 MG Morphine Sulfate 2 mg Q4HPRN PRN IV 10/21/24 11:30 11/10/24 05:15 2 MG Acetaminophen 650 mg Q6HP PRN GT 10/22/24 09:00 11/10/24 08:08 650 MG Pantoprazole Sodium 50 ml @ 0 mls/hr Q0M IV 10/28/24 16:15 Cancel Sodium Chloride 10 ml QSHIFT@, IV 10/31/24 22:00 11/28/24 09:24 10 ML Acetaminophen/ Hydrocodone Bitart 1 tab Q4HPRN PRN PO 11/06/24 09:15 Labetalol HCl 10 mg Q2HPRN PRN IV 11/12/24 17:00 11/27/24 04:40 10 MG Hydralazine HCl 50 mg Q8HR GT 11/13/24 14:00 11/28/24 14:16 50 MG Clonidine HCl 0.1 mg Q7D TD 11/13/24 07:00 11/27/24 11:07 0.1 MG Lorazepam 1 mg Q4HP PRN IV 11/14/24 16:15 11/28/24 05:31 1 MG Albuterol 2.5 mg Q3HPRN PRN NEB 11/18/24 10:30 Lactated Ringer's 1,000 ml @ 30 mls/hr Q24H IV 11/24/24 08:45 11/28/24 08:45 30 MLS/HR Lactulose 30 ml Q12HP PRN JT 11/24/24 09:00 11/27/24 14:18 30 ML Labetalol HCl 200 mg Q12HR GT 11/25/24 10:00 11/28/24 09:09 200 MG Nicotine 1 patch DAILY TD 11/26/24 10:00 11/28/24 09:23 1 PATCH Sucralfate 1 gm TID@0600,1130,2200 PO 11/27/24 09:15 11/28/24 11:37 1 GM Pantoprazole Sodium 40 mg BID IV 11/28/24 10:00 11/28/24 10:34 40 MG Enteral Nutritional Formula 240 ml TIDWM PO 11/28/24 12:00 11/28/24 12:00 240 ML laboratory and microbiology Laboratory Tests 11/28/24 02:53 Test 11/28/24 02:53 Range/Units Serum Glucose 93 74-106 mg/dL Problem List/Assessment/Plan Problems(with codes): (1) Severe anemia (2) Altered mental status (3) Troponin level elevated (4) TIA (transient ischemic attack) (5) Cholecystitis (6) Elevated liver enzymes Problem List/Assessment/Plan Patient is a 48 year old male with a past medical history of stroke , hypertension , emphysema. patient was brought in by family due to mental status . Patient was having constipation for several days prior to admission . CT abdomen and pelvis showed a perforated viscus and surgery was consulted . Xlab was done , patient was found to have pepticles for perforation at levels of pylori of about 6 cm . Surgical corrected was performed . 3 catheters were placed and patient was admitted to ICU and put on pressers and IV antibiotics. liver ultrasound showed gallbladder wall thickening and pericolic cystitis edema consistent with acute cholecystitis due to hemodynamic instability . percutaneous cholecystostomy was placed by IR rather than surgical drainage . patient developed multifocal pneumonia and covered by antibiotics and patient underwent thoracentesis as well as chest tube placement . chest tube has been removed , right sided cholecystostomy tube remains in place . patient was trachea on october 27 2024 . Infectious disease was consulted due to blood cultures being persistently positive for peña albakins . patient has been on micafungin and meropenem . Patient is febrile with a T-max of 103 , with worsening anemia . Hemoglobin is 6.6 and received a blood transfusion . Likely the etiology of persistent fungemia include line related as patient has a midline placed white patient was actively fungemic . Would also be concerned about untreated source of bowel leak . endocarditis also remains a small possibility as well Last Ct abdomen and pelvis was done with contrast and showed no evidence of bowel leak 11/11: unable to communicate besides yes and no . on trach collar . 150ccs of cholecystostomy drainage . 11/12: blood cultures came back negative x1 , will need a minimum o f14 days micafungin . remains 8 liters trach collar with ongoing significant drainage through the cholecystostomy tube 11/13: not having abdominal pains . blood cultures were positive for yeast . midline has been removed . TTE is negative 11/14: midline was removed . repeat blood cultures are no growth to date 11/15: blood cultures remain negative . whitecount has normalized and off all pressers and breathing well on 8 liters trach collar 11/16: blood cultures remain negative , drainage from abdominal drain is slowing as well 11/17: chest xray shows patchy bilateral airspace disease . whitecount remains normal 11/18: blood pressers are stable 11/19: potassium is low at times 11/20: most likely explanation for fevers and leukocytosis is aspiration pneumonitis 11/21: chest xray shows bilateral airspace disease 11/22: doing well on room air , no signs of pneumonia . sputum culture is showing normal dominic 11/23: potassium at 3.2 , still requiring electrolyte replacements frequently 11/24: having bowel movements and tolerating tube feeds 11/25: small bowel series testing has been done and normal bowel transit time 11/26: stability off meropenem 11/27: getting trach care , hemoglobin 6.9 , unclear where patient may be bleeding from 11/28: no ongoing signs of fungemia Plan : - ongoing heavy drain output defer to surgical team for management, low suspicion for infectious component to fluid output - patient has a drop in hemoglobin and defer to primary team for workup - monitor clinically off all antibiotics - STOP micafungin - f/u on pending respiratory cultures - continue envance for now - ongoing infection is unlikely at this point so long as drain remains in place - would consider repeat imaging once drain has been removed given high amounts of drain thats persisted for over 2 months now - repeat blood cultures after midline is removed - recommend Barrios exchange of the urine catheter - avoid unnecessary TPN and steroid use Authorized and Performed by: Jessica Woodard Total critical care time: Approximately 76 minutes Due to a high probability of clinically significant, life threatening deterioration, the patient required my highest level of preparedness to intervene emergently and I personally spent this critical care time directly and personally managing the patient. This critical care time included obtaining a history; examining the patient; pulse oximetry; ordering and review of studies; arranging urgent treatment with development of a management plan; evaluation of patient's response to treatment; frequent reassessment; and, discussions with other providers. This critical care time was performed to assess and manage the high probability of imminent, life-threatening deterioration that could result in multi-organ failure. It was exclusive of separately billable procedures and treating other patients and teaching time. Plan discussed with: Other Dietary Evaluation Review Comments: 1. Continue TPN to meet at least 75% estimated needs 2. Continue current POC Expected Outcomes/Goals: FU 2-3 days to meet adequate energy & protein within 7 days of NPO Protein Calorie Malnutrition: Severe (rn) CC Plasma Assessment Blood Product Administration S: [id number] JESSICA WOODARD MD Nov 28, 2024 17:31
--- NOTE | 2024-11-28 17:38 | DVHPN2 ---
Consult Progress Note Objective vital signs Vital Sign Date Time Temp Pulse Resp B/P (MAP) Pulse Ox O2 Delivery O2 Flow Rate FiO2 11/28/24 15:30 89 23 146/86 (106) 95 11/28/24 14:00 Room Air* 0 21 11/28/24 10:08 98.6 98.6 Total Intake and Output 11/27/24 11/27/24 11/28/24 15:00 23:00 07:00 Intake Total 340 ml 480 ml 1560 ml Output Total 875 ml 775 ml Balance 340 ml -395 ml 785 ml medications Current Medications Medications Dose Ordered Sig/Wally Route Start Time Stop Time Status Last Admin Dose Admin Ondansetron HCl 4 mg Q4HP PRN IV 10/04/24 11:45 Morphine Sulfate 2 mg Q4HPRN PRN IV 10/04/24 11:45 Cancel Morphine Sulfate 2 mg Q30M PRN IV 10/04/24 11:45 Cancel Lorazepam 50 mg/ Sodium Chloride 50 ml @ 1 mls/hr Q24H IV 10/04/24 18:15 Cancel Amino Acids 0 ml @ 0 mls/hr PER PHARMACY IV 10/05/24 14:30 UNV Meropenem 50 ml @ 17 mls/hr Q12HR IV 10/07/24 10:00 UNV Levalbuterol HCl 0.625 mg Q6HR NEB 10/13/24 12:00 11/28/24 12:02 0.625 MG Ipratropium [place] 0.5 mg Q6HR NEB 10/13/24 12:00 11/28/24 12:02 0.5 MG Morphine Sulfate 2 mg Q4HPRN PRN IV 10/21/24 11:30 11/10/24 05:15 2 MG Acetaminophen 650 mg Q6HP PRN GT 10/22/24 09:00 11/10/24 08:08 650 MG Pantoprazole Sodium 50 ml @ 0 mls/hr Q0M IV 10/28/24 16:15 Cancel Sodium Chloride 10 ml QSHIFT@10,22 IV 10/31/24 22:00 11/28/24 09:24 10 ML Acetaminophen/ Hydrocodone Bitart 1 tab Q4HPRN PRN PO 11/06/24 09:15 Labetalol HCl 10 mg Q2HPRN PRN IV 11/12/24 17:00 11/27/24 04:40 10 MG Hydralazine HCl 50 mg Q8HR GT 11/13/24 14:00 11/28/24 14:16 50 MG Clonidine HCl 0.1 mg Q7D TD 11/13/24 07:00 11/27/24 11:07 0.1 MG Lorazepam 1 mg Q4HP PRN IV 11/14/24 16:15 11/28/24 05:31 1 MG Albuterol 2.5 mg Q3HPRN PRN NEB 11/18/24 10:30 Lactated Ringer's 1,000 ml @ 30 mls/hr Q24H IV 11/24/24 08:45 11/28/24 08:45 30 MLS/HR Lactulose 30 ml Q12HP PRN JT 11/24/24 09:00 11/27/24 14:18 30 ML Labetalol HCl 200 mg Q12HR GT 11/25/24 10:00 11/28/24 09:09 200 MG Nicotine 1 patch DAILY TD 11/26/24 10:00 11/28/24 09:23 1 PATCH Sucralfate 1 gm TID@0600,1130,2200 PO 11/27/24 09:15 11/28/24 11:37 1 GM Pantoprazole Sodium 40 mg BID IV 11/28/24 10:00 11/28/24 10:34 40 MG Enteral Nutritional Formula 240 ml TIDWM PO 11/28/24 12:00 11/28/24 12:00 240 ML laboratory and microbiology Laboratory Tests 11/28/24 02:53 Test 11/28/24 02:53 Range/Units Serum Glucose 93 74-106 mg/dL Problem List/Assessment/Plan Problem List/Assessment/Plan Patient is a 48 year old male with a past medical history of stroke , hypertension , emphysema. patient was brought in by family due to mental status . Patient was having constipation for several days prior to admission . CT abdomen and pelvis showed a perforated viscus and surgery was consulted . Xlab was done , patient was found to have pepticles for perforation at levels of pylori of about 6 cm . Surgical corrected was performed . 3 catheters were placed and patient was admitted to ICU and put on pressers and IV antibiotics. liver ultrasound showed gallbladder wall thickening and pericolic cystitis edema consistent with acute cholecystitis due to hemodynamic instability . percutaneous cholecystostomy was placed by IR rather than surgical drainage . patient developed multifocal pneumonia and covered by antibiotics and patient underwent thoracentesis as well as chest tube placement . chest tube has been removed , right sided cholecystostomy tube remains in place . patient was trachea on october 27 2024 . Infectious disease was consulted due to blood cultures being persistently positive for peña albakins . patient has been on micafungin and meropenem . Patient is febrile with a T-max of 103 , with worsening anemia . Hemoglobin is 6.6 and received a blood transfusion . Likely the etiology of persistent fungemia include line related as patient has a midline placed white patient was actively fungemic . Would also be concerned about untreated source of bowel leak . endocarditis also remains a small possibility as well Last Ct abdomen and pelvis was done with contrast and showed no evidence of bowel leak 11/11: unable to communicate besides yes and no . on trach collar . 150ccs of cholecystostomy drainage . sp trach on room air, no signs of infection Plan : - can stop micafungin sp 14 days course for fungemia - ongoing heavy drain output defer to surgical team for management, low suspicion for infectious component to fluid output - will monitor clinically off all antibiotics Agree with assessment , plan , subjective , physical exam and other findings written above by Dr. MARLEY Dietary Evaluation Review Comments: 1. Continue TPN to meet at least 75% estimated needs 2. Continue current POC Expected Outcomes/Goals: FU 2-3 days to meet adequate energy & protein within 7 days of NPO Protein Calorie Malnutrition: Severe (rn) CC Plasma Assessment Blood Product Administration S: [id number] JESSICA ESCUDERO MD Nov 28, 2024 17:38
--- NOTE | 2024-11-28 20:37 | DVHPN2 ---
Progress Note - Dictate Date Seen: Nov 28, 2024 Has the PT tested + for MRSA If YES, has PT been informed?: No Medical Necessity Reason Pt with a Central, PICC or Fol: Yes The following are medically ne: Central Line, Gómez Catheter Reason for gómez catheter: Strict I&O Subjective Mr. Perez is a 48 years old right-handed gentleman with a history of hypertension, dyslipidemia, multiple strokes, he was brought to the [facility] on 10/04/2024 with a chief company of recurrent syncope, in the hospital, the patient was found to have perforated viscus, and he went through surgical treatment, he was hospital course has been complicated with sepsis, septic shock, pneumonia, right upper extremity DVT. I saw him on 08/23/2023 for TIA I have seen and examined the patient, discussed with his nurse. He Keeps improving, physically stronger, he talks better, social skills, but he is confused sometimes Blood culture, Urinalysis, 08/22/2023: Unremarkable UDS, 08/22/2023: Negative WBC/Hb/PLT'/MCV, 08/22/2023: 10.8/13.1/184/87.4, 10/28/2024: 15/8/487/89.3 10/31/2024: 24.3/9.1/77/88.4 Troponin 1 high-sensitivity, 08/22/2023: 336, 273/300 BUNs/CR, 08/22/2023: 15/1.45 10/31/2024: Two 9/2.42 GFR, 08/22/2023: 59 Liver function test, 10/04/2024: Unremarkable TBI/AST/ALT/AP, 10/04/2024: 0.6/410/335/31, 10/05/2024: 1.3/582/423/39, 10/31/2024: 3.6/54/98/117 TG/CHO L/LDL/HDL, 08/2023: 136/166/111/39 TSH, 08/23/2023: 4.25 Extremity venous study, right arm, 11/09/2024: Thrombus is seen in the cephalic vein in the forearm. DONAL, 08/23/2023: 1. No evidence of intracardiac source of embolus in the study conducted today. 2. Normal valves without significant masses or change vegetations were discernible. 3. No evidence of intra-atrial shunting by bubble study and color Doppler. 4. Mild atherosclerotic plaquing was visualized in the arch of the aorta without evidence of dissection in the visualized part CT head, 10/24/2024: 1. No intracranial hemorrhage or mass effect. 2. [id number] chronic microvascular ischemic changes. 3. Old bilateral basal ganglia lacunar infarcts. 4. Small bilateral mastoid effusions. CT abdomen/pelvis, 10/04/2024: 1. Extensive intra-abdominal free air concerning for perforated viscus. Surgical consultation is recommended. 2. Enteritis is seen in multiple loops of small bowel in the left hemiabdomen. 3. Moderate abdominopelvic ascites. 4. Small right pleural effusion. CTA neck, head, 08/22/2023:1. CTA head demonstrates no evidence of large vessel occlusion, aneurysm, or significant stenosis. 2. CTA neck demonstrates no evidence of carotid or vertebral dissection or significant stenosis. 3. No noncontrast CT head was performed. 4. Additional findings as detailed above MRI head, 08/23/2023: No acute infarct, intracranial hemorrhage, mass effect, or hydrocephalus. Moderate periventricular and deep subcortical white matter T2 hyperintensities which are nonspecific, but most likely related to sequela of chronic microvascular ischemic changes (I have reviewed the MRI films with our in-house radiologist, Dr. Black, the patient has bilateral multiple subacute/chronic infarcts) MRI head, 11/01/2024: No acute cerebrovascular ischemia. [id number] chronic microvascular ischemic changes. Bilateral mastoid effusions. Old bilateral basal ganglia / lopes radiata infarcts. vital signs Vital Sign Date Time Temp Pulse Resp B/P (MAP) Pulse Ox O2 Delivery O2 Flow Rate FiO2 11/28/24 19:15 83 24 95 11/28/24 18:25 Room Air* 0 N/A Trach Collar 11/28/24 10:08 98.6 98.6 Total Intake and Output 11/27/24 11/27/24 11/28/24 15:00 23:00 07:00 Intake Total 340 ml 480 ml 1560 ml Output Total 875 ml 775 ml Balance 340 ml -395 ml 785 ml medications Current Medications Medications Dose Ordered Sig/Wally Route Start Time Stop Time Status Last Admin Dose Admin Ondansetron HCl 4 mg Q4HP PRN IV 10/04/24 11:45 Morphine Sulfate 2 mg Q4HPRN PRN IV 10/04/24 11:45 Cancel Morphine Sulfate 2 mg Q30M PRN IV 10/04/24 11:45 Cancel Lorazepam 50 mg/ Sodium Chloride 50 ml @ 1 mls/hr Q24H IV 10/04/24 18:15 Cancel Amino Acids 0 ml @ 0 mls/hr PER PHARMACY IV 10/05/24 14:30 UNV Meropenem 50 ml @ 17 mls/hr Q12HR IV 10/07/24 10:00 UNV Levalbuterol HCl 0.625 mg Q6HR NEB 10/13/24 12:00 11/28/24 18:24 0.625 MG Ipratropium [place] 0.5 mg Q6HR NEB 10/13/24 12:00 11/28/24 18:25 0.5 MG Morphine Sulfate 2 mg Q4HPRN PRN IV 10/21/24 11:30 11/10/24 05:15 2 MG Acetaminophen 650 mg Q6HP PRN GT 10/22/24 09:00 11/10/24 08:08 650 MG Pantoprazole Sodium 50 ml @ 0 mls/hr Q0M IV 10/28/24 16:15 Cancel Sodium Chloride 10 ml QSHIFT@10,22 IV 10/31/24 22:00 11/28/24 09:24 10 ML Acetaminophen/ Hydrocodone Bitart 1 tab Q4HPRN PRN PO 11/06/24 09:15 Labetalol HCl 10 mg Q2HPRN PRN IV 11/12/24 17:00 11/27/24 04:40 10 MG Hydralazine HCl 50 mg Q8HR GT 11/13/24 14:00 11/28/24 14:16 50 MG Clonidine HCl 0.1 mg Q7D TD 11/13/24 07:00 11/27/24 11:07 0.1 MG Lorazepam 1 mg Q4HP PRN IV 11/14/24 16:15 11/28/24 05:31 1 MG Albuterol 2.5 mg Q3HPRN PRN NEB 11/18/24 10:30 Lactated Ringer's 1,000 ml @ 30 mls/hr Q24H IV 11/24/24 08:45 11/28/24 08:45 30 MLS/HR Lactulose 30 ml Q12HP PRN JT 11/24/24 09:00 11/27/24 14:18 30 ML Labetalol HCl 200 mg Q12HR GT 11/25/24 10:00 11/28/24 09:09 200 MG Nicotine 1 patch DAILY TD 11/26/24 10:00 11/28/24 09:23 1 PATCH Sucralfate 1 gm TID@0600,1130,2200 PO 11/27/24 09:15 11/28/24 11:37 1 GM Pantoprazole Sodium 40 mg BID IV 11/28/24 10:00 11/28/24 10:34 40 MG Enteral Nutritional Formula 240 ml TIDWM PO 11/28/24 12:00 11/28/24 18:00 240 ML objective General: the patient is well developed and nourished. No acute distress. MENTAL STATUS: Subjective SPEECH, LANGUAGE, HIGHER CORTICAL FUNCTION: He does not vocalize/status post tracheostomy. CRANIAL NERVES:Intact visual ansari to confrontation (visual thread). Pupils are equal, round and reactive. EOMs full and conjugate. Mandibular strength intact. Facial muscles symmetrical and strength intact. SENSATION: Sensation to touch and pinprick is unremarkable MOTOR: Normal muscle bulk. No fasciculations. No abnormal movements or posturing. Muscle power in the upper extremities: 4-5/5, right side stronger, weaker in the shoulders. Moves legs: 3-4/5 REFLEXES: Deep tendon reflexes are increased bilaterally. No pathological reflexes. CEREBELLAR/COORDINATION: Deferred GAIT/STATION: deferred laboratory and microbiology Laboratory Tests 11/28/24 02:53 Test 11/28/24 02:53 Range/Units Serum Glucose 93 74-106 mg/dL Problem List Altered mental status Metabolic encephalopathy secondary to sepsis, septic shock, pneumonia Hypoxic encephalopathy Viscus perforation status post surgical repair GI bleeding Anemia Fever/ Sepsis/septic shock Respiratory failure S/P tracheostomy Multiple strokes Secondary to history methamphetamine, cocaine, alcohol use History of alcohol abuse History of cocaine, methamphetamine abuse Hyperreflexia secondary to multiple strokes Right upper extremity DVT ICU myopathy Assessment/Plan Monitoring Supportive treatment ICU care Stabilize vitals, PRN Respiratory suppor PRN Follow-up labs IV antibiotics Protonix TPN Quit tobacco smoking No more alcohol, street drug abuse Stroke risk factors discussed GI on case Infectious disease on case Pulmonology on case Hematology on case Nephrology on case More recommended per clinical course This medical document was created using an electronic medical record system with [employer] dictation system. Although this document has been carefully reviewed, there may still be some phonetic and typographical errors. These areas are purely typographical due to imperfections of the software programs, and do not reflect any compromise in the patient's medical care. Prognosis poor Dietary Evaluation Review Comments: 1. Continue TPN to meet at least 75% estimated needs 2. Continue current POC Expected Outcomes/Goals: FU 2-3 days to meet adequate energy & protein within 7 days of NPO Protein Calorie Malnutrition: Severe (rn) Plan discussed with: Other CC Plasma Assessment Blood Product Administration S: [id number] LEANDRO BLACK MD Nov 28, 2024 20:37
--- NOTE | 2024-11-28 21:21 | DVHPN2 ---
Progress Note - Dictate Date Seen: Nov 28, 2024 Has the PT tested + for MRSA If YES, has PT been informed?: No Medical Necessity Reason Pt with a Central, PICC or Fol: Yes The following are medically ne: Central Line, Gómez Catheter Reason for gómez catheter: Strict I&O Subjective Patient is tolerating pureed diet and nectar thickened fluid He is currently sleeping Small-bowel series sewn shows no obstruction No active GI bleeding is reported Cholecystostomy tube is draining bile vital signs Vital Sign Date Time Temp Pulse Resp B/P (MAP) Pulse Ox O2 Delivery O2 Flow Rate FiO2 11/28/24 20:00 29 96 Room Air* 0 21 11/28/24 20:00 83 11/28/24 19:15 11/28/24 10:08 98.6 98.6 Total Intake and Output 11/27/24 11/27/24 11/28/24 15:00 23:00 07:00 Intake Total 340 ml 480 ml 1560 ml Output Total 875 ml 775 ml Balance 340 ml -395 ml 785 ml medications Current Medications Medications Dose Ordered Sig/Wally Route Start Time Stop Time Status Last Admin Dose Admin Ondansetron HCl 4 mg Q4HP PRN IV 10/04/24 11:45 Morphine Sulfate 2 mg Q4HPRN PRN IV 10/04/24 11:45 Cancel Morphine Sulfate 2 mg Q30M PRN IV 10/04/24 11:45 Cancel Lorazepam 50 mg/ Sodium Chloride 50 ml @ 1 mls/hr Q24H IV 10/04/24 18:15 Cancel Amino Acids 0 ml @ 0 mls/hr PER PHARMACY IV 10/05/24 14:30 UNV Meropenem 50 ml @ 17 mls/hr Q12HR IV 10/07/24 10:00 UNV Levalbuterol HCl 0.625 mg Q6HR NEB 10/13/24 12:00 11/28/24 18:24 0.625 MG Ipratropium [place] 0.5 mg Q6HR NEB 10/13/24 12:00 11/28/24 18:25 0.5 MG Morphine Sulfate 2 mg Q4HPRN PRN IV 10/21/24 11:30 11/10/24 05:15 2 MG Acetaminophen 650 mg Q6HP PRN GT 10/22/24 09:00 11/10/24 08:08 650 MG Pantoprazole Sodium 50 ml @ 0 mls/hr Q0M IV 10/28/24 16:15 Cancel Sodium Chloride 10 ml QSHIFT@10,22 IV 10/31/24 22:00 11/28/24 09:24 10 ML Acetaminophen/ Hydrocodone Bitart 1 tab Q4HPRN PRN PO 11/06/24 09:15 Labetalol HCl 10 mg Q2HPRN PRN IV 11/12/24 17:00 11/27/24 04:40 10 MG Hydralazine HCl 50 mg Q8HR GT 11/13/24 14:00 11/28/24 14:16 50 MG Clonidine HCl 0.1 mg Q7D TD 11/13/24 07:00 11/27/24 11:07 0.1 MG Lorazepam 1 mg Q4HP PRN IV 11/14/24 16:15 11/28/24 05:31 1 MG Albuterol 2.5 mg Q3HPRN PRN NEB 11/18/24 10:30 Lactated Ringer's 1,000 ml @ 30 mls/hr Q24H IV 11/24/24 08:45 11/28/24 08:45 30 MLS/HR Lactulose 30 ml Q12HP PRN JT 11/24/24 09:00 11/27/24 14:18 30 ML Labetalol HCl 200 mg Q12HR GT 11/25/24 10:00 11/28/24 09:09 200 MG Nicotine 1 patch DAILY TD 11/26/24 10:00 11/28/24 09:23 1 PATCH Sucralfate 1 gm TID@0600,1130,2200 PO 11/27/24 09:15 11/28/24 11:37 1 GM Pantoprazole Sodium 40 mg BID IV 11/28/24 10:00 11/28/24 10:34 40 MG Enteral Nutritional Formula 240 ml TIDWM PO 11/28/24 12:00 11/28/24 18:00 240 ML objective General Appearance: Alert, awake on trach collar HEENT: Atraumatic, PERRLA;Mild pallor, NG tube tolerating enteral tube feedings Lungs: Decreased breath sounds at bases) Cardiovascular: Regular rate, Normal S1, Normal S2, Abdomen: soft nontender well-healed midline scar without any drainage, hypoactive bowel sounds Cholecystostomy tube draining bile laboratory and microbiology Laboratory Tests 11/28/24 02:53 Test 11/28/24 02:53 Range/Units Serum Glucose 93 74-106 mg/dL Problems(with codes): (1) Elevated liver enzymes (2) Cholecystitis (3) TIA (transient ischemic attack) (4) Altered mental status (5) Perforated viscus (6) Syncope (7) NSTEMI (non-ST elevated myocardial infarction) (8) GI bleed (9) Septic shock (10) Leukocytosis Prognosis Plan Continue Protonix 40 mg IV q.12 hours Continue diet as tolerated Patient's tracheostomy we will possibly be close next week Continue physical therapy Outpatient follow up with surgery for elective cholecystectomy in 4-6 weeks Dietary Evaluation Review Comments: 1. Continue TPN to meet at least 75% estimated needs 2. Continue current POC Expected Outcomes/Goals: FU 2-3 days to meet adequate energy & protein within 7 days of NPO Protein Calorie Malnutrition: Severe (rn) Plan discussed with: Patient, Other (Nurse Cathie) CC Plasma Assessment Blood Product Administration S: [id number] GURJIT NOBLE MD Nov 28, 2024 21:21
[2024-11-29] VITALS (65 sets, daily range): BP systolic 127–173; BP diastolic 65–104; PULSE 72–105; RESP 18–38; TEMP 97.7–99.1; O2SAT 93–100
[2024-11-29 03:47] LABS: Nucleated Red Blood Cells % 0.1 %
[2024-11-29 03:50] LABS: Hematocrit 23.1 % (41.0-53.0); Hemoglobin 8.0 g/dL (13.5-17.5); Mean Corpuscular Hemoglobin 30.0 pg (28.0-32.0); Mean Corpuscular Volume 87.0 fL (80.0-100.0)
[2024-11-29 03:55] LABS: Anion Gap 8 (5-15); Calcium 8.9 mg/dL (8.7-10.4); Carbon Dioxide 25 mmol/L (20-31); Chloride 105 mmol/L (98-107); Potassium 4.0 mmol/L (3.5-5.1); Sodium 138 mmol/L (136-145)
[2024-11-29 04:01] LABS: BUN/Creatinine Ratio 14.0 (10.0-20.0); Blood Urea Nitrogen 14 mg/dL (9-23); Glucose 85 mg/dL (74-106)
--- NOTE | 2024-11-29 10:00 | DVHPN2 ---
Subjective Patient is alert following commands. Denies any symptoms. Reviewed: Care Plan, H&P, Labs, Medications, Previous Orders, Radiology, Other (Consultants) Changes from previous H/P or p: No Changes General: Per HPI Objective Vitals Vital Signs Date Time Temp Pulse Resp B/P (MAP) Pulse Ox O2 Delivery O2 Flow Rate FiO2 11/29/24 09:28 83 164/77 11/29/24 08:15 23 95 11/29/24 08:00 Room Air* 0 21 11/29/24 04:00 98.4 98.4 Intake/Output Intake and Output 11/29/24 07:00 Intake Total 2140 ml Output Total 1275 ml Balance 865 ml Intake Oral 1450 ml IV Total 690 ml Output Urine Total 1050 ml Drainage Total 225 ml # Bowel Movements 3 General Appearance: Alert, Oriented X3, Cooperative, mild distress, Other HEENT: Atraumatic, PERRLA, Other (Tracheostomy, size five Shiley) Neck: Other (Tracheostomy) Lungs: Clear to auscultation, Normal air movement, Other Cardiovascular: Normal S1, Normal S2, Other Abdomen: Other Extremities: Normal pulses Neuro: Cranial nerves 3-12 NL, Other Skin: Dry, Intact, Wounds, Other Psych/Mental Status: Other Medications Current Medications Medications Dose Ordered Sig/Wally Route Start Time Stop Time Status Last Admin Dose Admin Ondansetron HCl 4 mg Q4HP PRN IV 10/04/24 11:45 Morphine Sulfate 2 mg Q4HPRN PRN IV 10/04/24 11:45 Cancel Morphine Sulfate 2 mg Q30M PRN IV 10/04/24 11:45 Cancel Lorazepam 50 mg/ Sodium Chloride 50 ml @ 1 mls/hr Q24H IV 10/04/24 18:15 Cancel Amino Acids 0 ml @ 0 mls/hr PER PHARMACY IV 10/05/24 14:30 UNV Meropenem 50 ml @ 17 mls/hr Q12HR IV 10/07/24 10:00 UNV Levalbuterol HCl 0.625 mg Q6HR NEB 10/13/24 12:00 11/29/24 06:41 0.625 MG Ipratropium [place] 0.5 mg Q6HR NEB 10/13/24 12:00 11/29/24 06:41 0.5 MG Morphine Sulfate 2 mg Q4HPRN PRN IV 10/21/24 11:30 11/10/24 05:15 2 MG Acetaminophen 650 mg Q6HP PRN GT 10/22/24 09:00 11/10/24 08:08 650 MG Pantoprazole Sodium 50 ml @ 0 mls/hr Q0M IV 10/28/24 16:15 Cancel Sodium Chloride 10 ml QSHIFT@10,22 IV 10/31/24 22:00 11/29/24 09:28 10 ML Acetaminophen/ Hydrocodone Bitart 1 tab Q4HPRN PRN PO 11/06/24 09:15 Labetalol HCl 10 mg Q2HPRN PRN IV 11/12/24 17:00 11/27/24 04:40 10 MG Hydralazine HCl 50 mg Q8HR GT 11/13/24 14:00 11/29/24 05:57 50 MG Clonidine HCl 0.1 mg Q7D TD 11/13/24 07:00 11/27/24 11:07 0.1 MG Lorazepam 1 mg Q4HP PRN IV 11/14/24 16:15 11/28/24 05:31 1 MG Albuterol 2.5 mg Q3HPRN PRN NEB 11/18/24 10:30 Lactated Ringer's 1,000 ml @ 30 mls/hr Q24H IV 11/24/24 08:45 11/29/24 00:39 30 MLS/HR Lactulose 30 ml Q12HP PRN JT 11/24/24 09:00 11/27/24 14:18 30 ML Labetalol HCl 200 mg Q12HR GT 11/25/24 10:00 11/29/24 09:28 200 MG Nicotine 1 patch DAILY TD 11/26/24 10:00 11/29/24 09:27 1 PATCH Sucralfate 1 gm TID@0600,1130,2200 PO 11/27/24 09:15 11/29/24 05:57 1 GM Pantoprazole Sodium 40 mg BID IV 11/28/24 10:00 11/29/24 09:28 40 MG Enteral Nutritional Formula 240 ml TIDWM PO 11/28/24 12:00 11/29/24 08:00 240 ML Nifedipine 90 mg DAILY PO 11/29/24 10:00 Laboratory Results Laboratory Tests 11/29/24 03:12 Chemistry Test 11/29/24 03:12 Calcium Level 8.9 mg/dL (8.7-10.4) Urinalysis Test 10/05/24 15:05 10/26/24 20:33 11/07/24 12:40 Urine Mucus Few (None Seen) Urine Color Light-yellow (Yellow) Urine Clarity Clear (Clear) Urine pH 7.0 (5.0-9.0) Urine Specific [place] 1.014 (1.001-1.035) Urine Protein 1+ (Negative) H Urine Ketones Negative (Negative) Urine Blood 1+ /uL (Negative) H Urine Nitrite Negative (Negative) Urine Bilirubin Negative (Negative) Urine Urobilinogen Normal mg/dL (Negative) Urine Leukocyte Esterase Negative /uL (Negative) Urine RBC 1 /hpf (0 - 3) Urine Microscopic WBC 3 /HPF (0-3) Urine Squamous Epithelial Cells None seen /hpf (<5) Urine Bacteria Few /hpf (None Seen) H Urine Glucose Normal mg/dL (Normal) Urine Creatinine 64.63 mg/dL (30.0-125.0) Urine Protein/Creatinine Ratio 3.11 Urine Sodium 34 mmol/L (40-220) L Urine Total Protein 200.7 mg/dL (1-14) H Microbiology Microbiology Date/Time Source Procedure Growth Status 11/20/24 09:56 Sputum Gram Stain - Final Complete 11/20/24 09:56 Sputum Respiratory Culture - Final Complete 11/20/24 08:16 Blood Blood Culture - Final NO GROWTH AFTER 5 DAYS OF INCUBATION. Complete 11/10/24 22:44 Voided Urine Urine Culture - Final Complete 10/18/24 09:21 Pleural Fluid Gram Stain - Final Complete 10/18/24 09:21 Pleural Fluid Body Fluid Culture - Final Complete 10/04/24 17:10 Nose MRSA Screen - Final Complete Labs and/or images reviewed: Labs reviewed by me, Image(s) reviewed by me Assessment/Plan Assessment/Plan Impression: -severe septic shock -pneumoperitoneum secondary to perforated gastric ulcer -acute kidney injury, hemodynamically mediated, probable VMN -acute hypoxic respiratory failure -shock liver -nicotine dependence -history of CVA -right upper extremity DVT -multifocal pneumonia, probable Gram-positive/Gram-negative etiology -anemia secondary to nutrition, renal failure -bilateral pleural effusions -small left pneumothorax -Failure of ventilator weaning, status post tracheostomy -fungemia Plan: Events: No events overnight. Patient continues to have accelerated hypertension. Reported to be ambulating with physical therapy in the room. -continue Protonix 40 mg b.i.d. -antihypertensive regimen: Increase Procardia to 90 mg daily, continue labetalol and hydralazine, clonidine patch -GI consultation: Discussed case. -antimicrobial regimen completed -physical therapy, out of bed as tolerated -repeat labs in am -transfer to step-down ICU Critical care time spent with patient discussing and formulating plan of care: 40 minutes. This does not include time spent performing procedures. This medical document was created using an electronic medical record system with [employer] dictation system. Although this document has been carefully reviewed, there may still be some phonetic and typographical errors. These areas are purely typographical due to imperfections of the software programs, and do not reflect any compromise in the patient's medical care. Plan discussed with: Patient, Other (RN) My Orders Orders - CHEYENNE PIKE NP Procedure Category Date Status Time Nifedipine Er PHA 11/29/24 In Process (Procardia Xl 10:00 Transfer Orders XFER 11/29/24 Transmitted 09:33 Date of Service: Nov 29, 2024 Billing Provider: CHEYENNE PIKE NP Common Visit Codes: 03388-[id number] CARE 30-74 MIN CHEYENNE PIKE NP Nov 29, 2024 10:00
--- NOTE | 2024-11-29 12:35 | DVHPN2 ---
Progress Note - Dictate Date Seen: Nov 29, 2024 Has the PT tested + for MRSA If YES, has PT been informed?: No Medical Necessity Reason Pt with a Central, PICC or Fol: Yes The following are medically ne: Central Line, Gómez Catheter Reason for gómez catheter: Strict I&O vital signs Vital Sign Date Time Temp Pulse Resp B/P (MAP) Pulse Ox O2 Delivery O2 Flow Rate FiO2 11/29/24 12:07 97 Room Air 0.0 11/29/24 12:07 21 11/29/24 12:07 73 22 11/29/24 10:28 173/93 11/29/24 04:00 98.4 98.4 Total Intake and Output 11/28/24 11/28/24 11/29/24 15:00 23:00 07:00 Intake Total 240 ml 1040 ml 860 ml Output Total 525 ml 750 ml Balance 240 ml 515 ml 110 ml medications Current Medications Medications Dose Ordered Sig/Wally Route Start Time Stop Time Status Last Admin Dose Admin Ondansetron HCl 4 mg Q4HP PRN IV 10/04/24 11:45 Morphine Sulfate 2 mg Q4HPRN PRN IV 10/04/24 11:45 Cancel Morphine Sulfate 2 mg Q30M PRN IV 10/04/24 11:45 Cancel Lorazepam 50 mg/ Sodium Chloride 50 ml @ 1 mls/hr Q24H IV 10/04/24 18:15 Cancel Amino Acids 0 ml @ 0 mls/hr PER PHARMACY IV 10/05/24 14:30 UNV Meropenem 50 ml @ 17 mls/hr Q12HR IV 10/07/24 10:00 UNV Levalbuterol HCl 0.625 mg Q6HR NEB 10/13/24 12:00 11/29/24 12:07 0.625 MG Ipratropium [place] 0.5 mg Q6HR NEB 10/13/24 12:00 11/29/24 12:07 0.5 MG Morphine Sulfate 2 mg Q4HPRN PRN IV 10/21/24 11:30 11/10/24 05:15 2 MG Acetaminophen 650 mg Q6HP PRN GT 10/22/24 09:00 11/10/24 08:08 650 MG Pantoprazole Sodium 50 ml @ 0 mls/hr Q0M IV 10/28/24 16:15 Cancel Sodium Chloride 10 ml QSHIFT@10,22 IV 10/31/24 22:00 11/29/24 09:28 10 ML Acetaminophen/ Hydrocodone Bitart 1 tab Q4HPRN PRN PO 11/06/24 09:15 Labetalol HCl 10 mg Q2HPRN PRN IV 11/12/24 17:00 11/27/24 04:40 10 MG Hydralazine HCl 50 mg Q8HR GT 11/13/24 14:00 11/29/24 05:57 50 MG Clonidine HCl 0.1 mg Q7D TD 11/13/24 07:00 11/27/24 11:07 0.1 MG Lorazepam 1 mg Q4HP PRN IV 11/14/24 16:15 11/28/24 05:31 1 MG Albuterol 2.5 mg Q3HPRN PRN NEB 11/18/24 10:30 Lactated Ringer's 1,000 ml @ 30 mls/hr Q24H IV 11/24/24 08:45 11/29/24 00:39 30 MLS/HR Lactulose 30 ml Q12HP PRN JT 11/24/24 09:00 11/27/24 14:18 30 ML Labetalol HCl 200 mg Q12HR GT 11/25/24 10:00 11/29/24 09:28 200 MG Nicotine 1 patch DAILY TD 11/26/24 10:00 11/29/24 09:27 1 PATCH Sucralfate 1 gm TID@0600,1130,2200 PO 11/27/24 09:15 11/29/24 10:55 1 GM Pantoprazole Sodium 40 mg BID IV 11/28/24 10:00 11/29/24 09:28 40 MG Enteral Nutritional Formula 240 ml TIDWM PO 11/28/24 12:00 11/29/24 08:00 240 ML Nifedipine 90 mg DAILY PO 11/29/24 10:00 11/29/24 10:28 90 MG laboratory and microbiology Laboratory Tests 11/29/24 03:12 Test 11/29/24 03:12 Range/Units Serum Glucose 85 74-106 mg/dL Assessment/Plan Impression Acute hypoxemic respiratory failure S/p tracheostomy Perforated viscus Septic shock Smoker Patient seen and examined in ICU Events S/p tracheostomy Size 5 cuffless shiley Tolerating trache collar able to ambulate with physical therapy No distress Labs and imaging reviewed ABG reviewed Management Supplemental oxygen Trache collar trache care per RT completed abx afebrile Bronchodilators Monitor renal function Monitor electrolytes Supplement as needed HD per nephrology Nutritional support Okay to downgrade to ANNIE DVT prophylaxis Critical care time 35 minutes Dietary Evaluation Review Comments: 1. Continue TPN to meet at least 75% estimated needs 2. Continue current POC Expected Outcomes/Goals: FU 2-3 days to meet adequate energy & protein within 7 days of NPO Protein Calorie Malnutrition: Severe (rn) Plan discussed with: Patient CC Plasma Assessment Blood Product Administration S: [id number] VALENTE DEE MD Nov 29, 2024 12:35
--- NOTE | 2024-11-29 23:55 | DVHPN2 ---
Progress Note - Dictate Date Seen: Nov 29, 2024 Has the PT tested + for MRSA If YES, has PT been informed?: No Medical Necessity Reason Pt with a Central, PICC or Fol: Yes The following are medically ne: Central Line, Gómez Catheter Reason for gómez catheter: Strict I&O Subjective Patient is awake alert watching TV, he has a speaking valve in place Patient is tolerating pureed diet and nectar thickened fluid; he can swallow pills Small-bowel series sewn shows no obstruction No active GI bleeding is reported Cholecystostomy tube is draining bile vital signs Vital Sign Date Time Temp Pulse Resp B/P (MAP) Pulse Ox O2 Delivery O2 Flow Rate FiO2 11/29/24 22:37 94 149/74 11/29/24 18:10 25 100 11/29/24 18:00 Room Air* 0 21 11/29/24 16:00 98.0 98.0 Total Intake and Output 11/28/24 11/28/24 11/29/24 15:00 23:00 07:00 Intake Total 240 ml 1040 ml 890 ml Output Total 525 ml 750 ml Balance 240 ml 515 ml 140 ml medications Current Medications Medications Dose Ordered Sig/Wally Route Start Time Stop Time Status Last Admin Dose Admin Ondansetron HCl 4 mg Q4HP PRN IV 10/04/24 11:45 Morphine Sulfate 2 mg Q4HPRN PRN IV 10/04/24 11:45 Cancel Morphine Sulfate 2 mg Q30M PRN IV 10/04/24 11:45 Cancel Lorazepam 50 mg/ Sodium Chloride 50 ml @ 1 mls/hr Q24H IV 10/04/24 18:15 Cancel Amino Acids 0 ml @ 0 mls/hr PER PHARMACY IV 10/05/24 14:30 UNV Meropenem 50 ml @ 17 mls/hr Q12HR IV 10/07/24 10:00 UNV Levalbuterol HCl 0.625 mg Q6HR NEB 10/13/24 12:00 11/29/24 18:09 0.625 MG Ipratropium [place] 0.5 mg Q6HR NEB 10/13/24 12:00 11/29/24 18:09 0.5 MG Morphine Sulfate 2 mg Q4HPRN PRN IV 10/21/24 11:30 11/10/24 05:15 2 MG Acetaminophen 650 mg Q6HP PRN GT 10/22/24 09:00 11/10/24 08:08 650 MG Pantoprazole Sodium 50 ml @ 0 mls/hr Q0M IV 10/28/24 16:15 Cancel Sodium Chloride 10 ml QSHIFT@10,22 IV 10/31/24 22:00 11/29/24 22:37 10 ML Acetaminophen/ Hydrocodone Bitart 1 tab Q4HPRN PRN PO 11/06/24 09:15 Labetalol HCl 10 mg Q2HPRN PRN IV 11/12/24 17:00 11/27/24 04:40 10 MG Hydralazine HCl 50 mg Q8HR GT 11/13/24 14:00 11/29/24 22:36 50 MG Clonidine HCl 0.1 mg Q7D TD 11/13/24 07:00 11/27/24 11:07 0.1 MG Lorazepam 1 mg Q4HP PRN IV 11/14/24 16:15 11/28/24 05:31 1 MG Albuterol 2.5 mg Q3HPRN PRN NEB 11/18/24 10:30 Lactated Ringer's 1,000 ml @ 30 mls/hr Q24H IV 11/24/24 08:45 11/29/24 00:39 30 MLS/HR Lactulose 30 ml Q12HP PRN JT 11/24/24 09:00 11/27/24 14:18 30 ML Labetalol HCl 200 mg Q12HR GT 11/25/24 10:00 11/29/24 22:37 200 MG Nicotine 1 patch DAILY TD 11/26/24 10:00 11/29/24 09:27 1 PATCH Sucralfate 1 gm TID@0600,1130,2200 PO 11/27/24 09:15 11/29/24 22:35 1 GM Pantoprazole Sodium 40 mg BID IV 11/28/24 10:00 11/29/24 22:37 40 MG Enteral Nutritional Formula 240 ml TIDWM PO 11/28/24 12:00 11/29/24 18:00 240 ML Nifedipine 90 mg DAILY PO 11/29/24 10:00 11/29/24 10:28 90 MG objective General Appearance: Alert, awake on trach collar HEENT: Atraumatic, PERRLA;Mild pallor, NG tube tolerating enteral tube feedings Lungs: Decreased breath sounds at bases) Cardiovascular: Regular rate, Normal S1, Normal S2, Abdomen: soft nontender well-healed midline scar without any drainage, hypoactive bowel sounds Cholecystostomy tube draining bile laboratory and microbiology Laboratory Tests 11/29/24 03:12 Test 11/29/24 03:12 Range/Units Serum Glucose 85 74-106 mg/dL Problems(with codes): (1) Elevated liver enzymes (2) Cholecystitis (3) TIA (transient ischemic attack) (4) Shock (5) Altered mental status (6) Severe anemia (7) Perforated viscus (8) NSTEMI (non-ST elevated myocardial infarction) (9) GI bleed Prognosis Plan IV Protonix 40 mg q.12 hours Advance diet as tolerated Possible torsion of tracheostomy next week Continue physical therapy Discharge planning as per hospitalist Dietary Evaluation Review Comments: 1. Continue TPN to meet at least 75% estimated needs 2. Continue current POC Expected Outcomes/Goals: FU 2-3 days to meet adequate energy & protein within 7 days of NPO Protein Calorie Malnutrition: Severe (rn) Plan discussed with: Patient CC Plasma Assessment Blood Product Administration S: [id number] GURJIT NOBLE MD Nov 29, 2024 23:55
[2024-11-30] VITALS (34 sets, daily range): BP systolic 105–160; BP diastolic 50–99; PULSE 71–98; RESP 16–33; TEMP 98.1–98.7; O2SAT 90–100
[2024-11-30 08:50] LABS: Nucleated Red Blood Cells % 0.1 %
[2024-11-30 08:51] LABS: Hematocrit 25.5 % (41.0-53.0); Hemoglobin 8.4 g/dL (13.5-17.5); Mean Corpuscular Hemoglobin 28.3 pg (28.0-32.0); Mean Corpuscular Volume 86.4 fL (80.0-100.0)
[2024-11-30 09:01] LABS: Calcium 8.9 mg/dL (8.7-10.4); Chloride 103 mmol/L (98-107); Potassium 4.0 mmol/L (3.5-5.1); Sodium 136 mmol/L (136-145)
[2024-11-30 09:02] LABS: Anion Gap 9 (5-15); Carbon Dioxide 24 mmol/L (20-31)
[2024-11-30 09:07] LABS: BUN/Creatinine Ratio 11.8 (10.0-20.0); Blood Urea Nitrogen 13 mg/dL (9-23); Glucose 85 mg/dL (74-106); Magnesium 1.8 mg/dL (1.6-2.6)
--- NOTE | 2024-11-30 09:43 | DVHPN2 ---
Consult Progress Note Date Seen: Nov 29, 2024 Subjective Patient reports: Feels better (no fever or chills) Objective vital signs Vital Sign Date Time Temp Pulse Resp B/P (MAP) Pulse Ox O2 Delivery O2 Flow Rate FiO2 11/30/24 08:47 77 134/76 11/30/24 08:00 20 97 Room Air* 0 21 11/30/24 08:00 98.3 98.3 Total Intake and Output 11/29/24 11/29/24 11/30/24 15:00 23:00 07:00 Intake Total 240 ml 790 ml 250 ml Output Total 560 ml 1160 ml Balance 240 ml 230 ml -910 ml medications Current Medications Medications Dose Ordered Sig/Wally Route Start Time Stop Time Status Last Admin Dose Admin Ondansetron HCl 4 mg Q4HP PRN IV 10/04/24 11:45 Morphine Sulfate 2 mg Q4HPRN PRN IV 10/04/24 11:45 Cancel Morphine Sulfate 2 mg Q30M PRN IV 10/04/24 11:45 Cancel Lorazepam 50 mg/ Sodium Chloride 50 ml @ 1 mls/hr Q24H IV 10/04/24 18:15 Cancel Amino Acids 0 ml @ 0 mls/hr PER PHARMACY IV 10/05/24 14:30 UNV Meropenem 50 ml @ 17 mls/hr Q12HR IV 10/07/24 10:00 UNV Levalbuterol HCl 0.625 mg Q6HR NEB 10/13/24 12:00 11/30/24 05:30 0.625 MG Ipratropium [place] 0.5 mg Q6HR NEB 10/13/24 12:00 11/30/24 05:30 0.5 MG Morphine Sulfate 2 mg Q4HPRN PRN IV 10/21/24 11:30 11/10/24 05:15 2 MG Acetaminophen 650 mg Q6HP PRN GT 10/22/24 09:00 11/10/24 08:08 650 MG Pantoprazole Sodium 50 ml @ 0 mls/hr Q0M IV 10/28/24 16:15 Cancel Sodium Chloride 10 ml QSHIFT@10,22 IV 10/31/24 22:00 11/30/24 08:05 10 ML Acetaminophen/ Hydrocodone Bitart 1 tab Q4HPRN PRN PO 11/06/24 09:15 Labetalol HCl 10 mg Q2HPRN PRN IV 11/12/24 17:00 11/27/24 04:40 10 MG Hydralazine HCl 50 mg Q8HR GT 11/13/24 14:00 11/30/24 07:34 50 MG Clonidine HCl 0.1 mg Q7D TD 11/13/24 07:00 11/27/24 11:07 0.1 MG Lorazepam 1 mg Q4HP PRN IV 11/14/24 16:15 11/28/24 05:31 1 MG Albuterol 2.5 mg Q3HPRN PRN NEB 11/18/24 10:30 Lactated Ringer's 1,000 ml @ 30 mls/hr Q24H IV 11/24/24 08:45 11/29/24 00:39 30 MLS/HR Lactulose 30 ml Q12HP PRN JT 11/24/24 09:00 11/27/24 14:18 30 ML Labetalol HCl 200 mg Q12HR GT 11/25/24 10:00 11/30/24 07:35 200 MG Nicotine 1 patch DAILY TD 11/26/24 10:00 11/30/24 09:25 1 PATCH Sucralfate 1 gm TID@0600,1130,2200 PO 11/27/24 09:15 11/30/24 07:47 1 GM Pantoprazole Sodium 40 mg BID IV 11/28/24 10:00 11/30/24 08:04 40 MG Enteral Nutritional Formula 240 ml TIDWM PO 11/28/24 12:00 11/30/24 07:43 240 ML Nifedipine 90 mg DAILY PO 11/29/24 10:00 11/30/24 08:05 90 MG laboratory and microbiology Laboratory Tests 11/30/24 08:14 Test 11/30/24 08:14 Range/Units Serum Glucose 85 74-106 mg/dL Problem List/Assessment/Plan Problem List/Assessment/Plan Patient is a 48 year old male with a past medical history of stroke , hypertension , emphysema. patient was brought in by family due to mental status . Patient was having constipation for several days prior to admission . CT abdomen and pelvis showed a perforated viscus and surgery was consulted . Xlab was done , patient was found to have pepticles for perforation at levels of pylori of about 6 cm . Surgical corrected was performed . 3 catheters were placed and patient was admitted to ICU and put on pressers and IV antibiotics. liver ultrasound showed gallbladder wall thickening and pericolic cystitis edema consistent with acute cholecystitis due to hemodynamic instability . percutaneous cholecystostomy was placed by IR rather than surgical drainage . patient developed multifocal pneumonia and covered by antibiotics and patient underwent thoracentesis as well as chest tube placement . chest tube has been removed , right sided cholecystostomy tube remains in place . patient was trachea on october 27 2024 . Infectious disease was consulted due to blood cultures being persistently positive for peña albakins . patient has been on micafungin and meropenem . Patient is febrile with a T-max of 103 , with worsening anemia . Hemoglobin is 6.6 and received a blood transfusion . Likely the etiology of persistent fungemia include line related as patient has a midline placed white patient was actively fungemic . Would also be concerned about untreated source of bowel leak . endocarditis also remains a small possibility as well Last Ct abdomen and pelvis was done with contrast and showed no evidence of bowel leak 11/11: unable to communicate besides yes and no . on trach collar . 150ccs of cholecystostomy drainage . 11/12: blood cultures came back negative x1 , will need a minimum o f14 days micafungin . remains 8 liters trach collar with ongoing significant drainage through the cholecystostomy tube 11/13: not having abdominal pains . blood cultures were positive for yeast . midline has been removed . TTE is negative 11/14: midline was removed . repeat blood cultures are no growth to date 11/15: blood cultures remain negative . whitecount has normalized and off all pressers and breathing well on 8 liters trach collar 11/16: blood cultures remain negative , drainage from abdominal drain is slowing as well 11/17: chest xray shows patchy bilateral airspace disease . whitecount remains normal 11/18: blood pressers are stable 7: potassium is low at times 11/20: most likely explanation for fevers and leukocytosis is aspiration pneumonitis 11/21: chest xray shows bilateral airspace disease 11/22: doing well on room air , no signs of pneumonia . sputum culture is showing normal dominic 11/23: potassium at 3.2 , still requiring electrolyte replacements frequently 11/24: having bowel movements and tolerating tube feeds 11/25: small bowel series testing has been done and normal bowel transit time 11/26: stability off meropenem 11/27: getting trach care , hemoglobin 6.9 , unclear where patient may be bleeding from 11/28: no ongoing signs of fungemia 11/29: doing well off all antibiotics sp 14 days , no fever or chills, on room air Plan : - ongoing heavy drain output defer to surgical team for management, low suspicion for infectious component to fluid output - patient has a drop in hemoglobin and defer to primary team for workup - monitor clinically off all antibiotics - ongoing infection is unlikely at this point so long as drain remains in place - would consider repeat imaging once drain has been removed given high amounts of drain thats persisted for over 2 months now - repeat blood cultures after midline is removed - recommend Barrios exchange of the urine catheter - avoid unnecessary TPN and steroid use Plan discussed with: Patient Dietary Evaluation Review Comments: 1. Continue TPN to meet at least 75% estimated needs 2. Continue current POC Expected Outcomes/Goals: FU 2-3 days to meet adequate energy & protein within 7 days of NPO Protein Calorie Malnutrition: Severe (rn) CC Plasma Assessment Blood Product Administration S: [id number] JESSICA ESCUDERO MD Nov 30, 2024 09:43
[2024-11-30 09:58] LABS: Anisocytosis Slight
[2024-11-30 09:59] LABS: Ovalocytes FEW
--- NOTE | 2024-11-30 10:40 | DVHPN2 ---
Subjective Patient is alert following commands. Denies any symptoms. Reviewed: Care Plan, H&P, Labs, Medications, Previous Orders, Radiology, Other (Consultants) Changes from previous H/P or p: No Changes General: Per HPI Objective Vitals Vital Signs Date Time Temp Pulse Resp B/P (MAP) Pulse Ox O2 Delivery O2 Flow Rate FiO2 11/30/24 09:50 18 97 Room Air* 0 21 11/30/24 08:47 77 134/76 11/30/24 08:00 98.7 98.7 Intake/Output Intake and Output 11/30/24 07:00 Intake Total 1310 ml Output Total 1720 ml Balance -410 ml Intake Oral 950 ml IV Total 360 ml Output Urine Total 1550 ml Gastric Drainage Total 110 ml Drainage Total 60 ml # Bowel Movements 3 General Appearance: Alert, Oriented X3, Cooperative, mild distress, Other HEENT: Atraumatic, PERRLA, Other (Tracheostomy, size five Shiley) Neck: Other (Tracheostomy) Lungs: Clear to auscultation, Normal air movement, Other Cardiovascular: Normal S1, Normal S2, Other Abdomen: Other Extremities: Normal pulses Neuro: Cranial nerves 3-12 NL, Other Skin: Dry, Intact, Wounds, Other Psych/Mental Status: Other Medications Current Medications Medications Dose Ordered Sig/Wally Route Start Time Stop Time Status Last Admin Dose Admin Ondansetron HCl 4 mg Q4HP PRN IV 10/04/24 11:45 Morphine Sulfate 2 mg Q4HPRN PRN IV 10/04/24 11:45 Cancel Morphine Sulfate 2 mg Q30M PRN IV 10/04/24 11:45 Cancel Lorazepam 50 mg/ Sodium Chloride 50 ml @ 1 mls/hr Q24H IV 10/04/24 18:15 Cancel Amino Acids 0 ml @ 0 mls/hr PER PHARMACY IV 10/05/24 14:30 UNV Meropenem 50 ml @ 17 mls/hr Q12HR IV 10/07/24 10:00 UNV Levalbuterol HCl 0.625 mg Q6HR NEB 10/13/24 12:00 11/30/24 05:30 0.625 MG Ipratropium [place] 0.5 mg Q6HR NEB 10/13/24 12:00 11/30/24 05:30 0.5 MG Morphine Sulfate 2 mg Q4HPRN PRN IV 10/21/24 11:30 11/10/24 05:15 2 MG Pantoprazole Sodium 50 ml @ 0 mls/hr Q0M IV 10/28/24 16:15 Cancel Sodium Chloride 10 ml QSHIFT@10,22 IV 10/31/24 22:00 11/30/24 08:05 10 ML Acetaminophen/ Hydrocodone Bitart 1 tab Q4HPRN PRN PO 11/06/24 09:15 Labetalol HCl 10 mg Q2HPRN PRN IV 11/12/24 17:00 11/27/24 04:40 10 MG Clonidine HCl 0.1 mg Q7D TD 11/13/24 07:00 11/27/24 11:07 0.1 MG Lorazepam 1 mg Q4HP PRN IV 11/14/24 16:15 11/28/24 05:31 1 MG Albuterol 2.5 mg Q3HPRN PRN NEB 11/18/24 10:30 Lactulose 30 ml Q12HP PRN JT 11/24/24 09:00 11/27/24 14:18 30 ML Labetalol HCl 200 mg Q12HR GT 11/25/24 10:00 11/30/24 07:35 200 MG Nicotine 1 patch DAILY TD 11/26/24 10:00 11/30/24 09:25 1 PATCH Sucralfate 1 gm TID@0600,1130,2200 PO 11/27/24 09:15 11/30/24 07:47 1 GM Pantoprazole Sodium 40 mg BID IV 11/28/24 10:00 11/30/24 08:04 40 MG Enteral Nutritional Formula 240 ml TIDWM PO 11/28/24 12:00 11/30/24 07:43 240 ML Nifedipine 90 mg DAILY PO 11/29/24 10:00 11/30/24 08:05 90 MG Hydralazine HCl 50 mg Q12H PO 11/30/24 18:00 Laboratory Results Laboratory Tests 11/30/24 08:14 Chemistry Test 11/30/24 08:14 Calcium Level 8.9 mg/dL (8.7-10.4) Magnesium Level 1.8 mg/dL (1.6-2.6) Urinalysis Test 10/05/24 15:05 10/26/24 20:33 11/07/24 12:40 Urine Mucus Few (None Seen) Urine Color Light-yellow (Yellow) Urine Clarity Clear (Clear) Urine pH 7.0 (5.0-9.0) Urine Specific [place] 1.014 (1.001-1.035) Urine Protein 1+ (Negative) H Urine Ketones Negative (Negative) Urine Blood 1+ /uL (Negative) H Urine Nitrite Negative (Negative) Urine Bilirubin Negative (Negative) Urine Urobilinogen Normal mg/dL (Negative) Urine Leukocyte Esterase Negative /uL (Negative) Urine RBC 1 /hpf (0 - 3) Urine Microscopic WBC 3 /HPF (0-3) Urine Squamous Epithelial Cells None seen /hpf (<5) Urine Bacteria Few /hpf (None Seen) H Urine Glucose Normal mg/dL (Normal) Urine Creatinine 64.63 mg/dL (30.0-125.0) Urine Protein/Creatinine Ratio 3.11 Urine Sodium 34 mmol/L (40-220) L Urine Total Protein 200.7 mg/dL (1-14) H Microbiology Microbiology Date/Time Source Procedure Growth Status 11/20/24 09:56 Sputum Gram Stain - Final Complete 11/20/24 09:56 Sputum Respiratory Culture - Final Complete 11/20/24 08:16 Blood Blood Culture - Final NO GROWTH AFTER 5 DAYS OF INCUBATION. Complete 11/10/24 22:44 Voided Urine Urine Culture - Final Complete 10/18/24 09:21 Pleural Fluid Gram Stain - Final Complete 10/18/24 09:21 Pleural Fluid Body Fluid Culture - Final Complete 10/04/24 17:10 Nose MRSA Screen - Final Complete Labs and/or images reviewed: Labs reviewed by me, Image(s) reviewed by me Assessment/Plan Assessment/Plan Impression: -severe septic shock -pneumoperitoneum secondary to perforated gastric ulcer -acute kidney injury, hemodynamically mediated, probable VMN -acute hypoxic respiratory failure -shock liver -nicotine dependence -history of CVA -right upper extremity DVT -multifocal pneumonia, probable Gram-positive/Gram-negative etiology -anemia secondary to nutrition, renal failure -bilateral pleural effusions -small left pneumothorax -Failure of ventilator weaning, status post tracheostomy -fungemia Plan: Events: No events overnight. Pressure better controlled. Labs benign. -hep lock the patient -advance to mechanical soft diet -continue Protonix 40 mg b.i.d. -continue current antihypertensive regimen. Decrease hydralazine to b.i.d. -GI consultation: Discussed case. -antimicrobial regimen completed -physical therapy, out of bed as tolerated -repeat labs in am Critical care time spent with patient discussing and formulating plan of care: 40 minutes. This does not include time spent performing procedures. This medical document was created using an electronic medical record system with [employer] dictation system. Although this document has been carefully reviewed, there may still be some phonetic and typographical errors. These areas are purely typographical due to imperfections of the software programs, and do not reflect any compromise in the patient's medical care. Plan discussed with: Patient, Other (RN) My Orders Orders - CHEYENNE PIKE NP Procedure Category Date Status Time Hydralazine Hcl PHA 11/30/24 In Process Tablet (Apresoline 18:00 Regular Diet DIET 11/30/24 Transmitted Lunch Date of Service: Nov 30, 2024 Billing Provider: CHEYENNE PIKE NP Common Visit Codes: 11115-[id number] INP/OBS CARE(HIGH) CHEYENNE PIKE NP Nov 30, 2024 10:40
--- NOTE | 2024-11-30 12:47 | DVHPN2 ---
Progress Note - Dictate Date Seen: Nov 30, 2024 Has the PT tested + for MRSA If YES, has PT been informed?: No Medical Necessity Reason Pt with a Central, PICC or Fol: Yes The following are medically ne: Central Line, Gómez Catheter Reason for gómez catheter: Strict I&O vital signs Vital Sign Date Time Temp Pulse Resp B/P (MAP) Pulse Ox O2 Delivery O2 Flow Rate FiO2 11/30/24 12:00 22 97 Room Air* 0 21 11/30/24 12:00 72 11/30/24 08:47 134/76 11/30/24 08:00 98.7 98.7 Total Intake and Output 11/29/24 11/29/24 11/30/24 15:00 23:00 07:00 Intake Total 240 ml 790 ml 280 ml Output Total 560 ml 1160 ml Balance 240 ml 230 ml -880 ml medications Current Medications Medications Dose Ordered Sig/Wally Route Start Time Stop Time Status Last Admin Dose Admin Ondansetron HCl 4 mg Q4HP PRN IV 10/04/24 11:45 Morphine Sulfate 2 mg Q4HPRN PRN IV 10/04/24 11:45 Cancel Morphine Sulfate 2 mg Q30M PRN IV 10/04/24 11:45 Cancel Lorazepam 50 mg/ Sodium Chloride 50 ml @ 1 mls/hr Q24H IV 10/04/24 18:15 Cancel Amino Acids 0 ml @ 0 mls/hr PER PHARMACY IV 10/05/24 14:30 UNV Meropenem 50 ml @ 17 mls/hr Q12HR IV 10/07/24 10:00 UNV Levalbuterol HCl 0.625 mg Q6HR NEB 10/13/24 12:00 11/30/24 11:24 0.625 MG Ipratropium [place] 0.5 mg Q6HR NEB 10/13/24 12:00 11/30/24 11:24 0.5 MG Morphine Sulfate 2 mg Q4HPRN PRN IV 10/21/24 11:30 11/10/24 05:15 2 MG Pantoprazole Sodium 50 ml @ 0 mls/hr Q0M IV 10/28/24 16:15 Cancel Sodium Chloride 10 ml QSHIFT@10,22 IV 10/31/24 22:00 11/30/24 08:05 10 ML Acetaminophen/ Hydrocodone Bitart 1 tab Q4HPRN PRN PO 11/06/24 09:15 Labetalol HCl 10 mg Q2HPRN PRN IV 11/12/24 17:00 11/27/24 04:40 10 MG Clonidine HCl 0.1 mg Q7D TD 11/13/24 07:00 11/27/24 11:07 0.1 MG Lorazepam 1 mg Q4HP PRN IV 11/14/24 16:15 11/28/24 05:31 1 MG Albuterol 2.5 mg Q3HPRN PRN NEB 11/18/24 10:30 Lactulose 30 ml Q12HP PRN JT 11/24/24 09:00 11/27/24 14:18 30 ML Labetalol HCl 200 mg Q12HR GT 11/25/24 10:00 11/30/24 07:35 200 MG Nicotine 1 patch DAILY TD 11/26/24 10:00 11/30/24 09:25 1 PATCH Sucralfate 1 gm TID@0600,1130,2200 PO 11/27/24 09:15 11/30/24 10:54 1 GM Pantoprazole Sodium 40 mg BID IV 11/28/24 10:00 11/30/24 08:04 40 MG Enteral Nutritional Formula 240 ml TIDWM PO 11/28/24 12:00 11/30/24 10:53 240 ML Nifedipine 90 mg DAILY PO 11/29/24 10:00 11/30/24 08:05 90 MG Hydralazine HCl 50 mg Q12H PO 11/30/24 18:00 laboratory and microbiology Laboratory Tests 11/30/24 08:14 Test 11/30/24 08:14 Range/Units Serum Glucose 85 74-106 mg/dL Assessment/Plan Impression Acute hypoxemic respiratory failure S/p tracheostomy Perforated viscus Septic shock Smoker Patient seen and examined in ICU Events S/p tracheostomy Size 5 cuffless shiley Downgraded to ANNIE On room air No distress Labs and imaging reviewed ABG reviewed Management Supplemental oxygen as needed Trache collar trache care per RT completed abx afebrile Bronchodilators Monitor renal function HD per nephrology Management deferred Monitor electrolytes Supplement as needed Nutritional support Continue ambulation F/u physical therapy DVT prophylaxis Critical care time 35 minutes Dietary Evaluation Review Comments: 1. Continue TPN to meet at least 75% estimated needs 2. Continue current POC Expected Outcomes/Goals: FU 2-3 days to meet adequate energy & protein within 7 days of NPO Protein Calorie Malnutrition: Severe (rn) Plan discussed with: Patient CC Plasma Assessment Blood Product Administration S: [id number] VALENTE DEE MD Nov 30, 2024 12:47
--- NOTE | 2024-11-30 16:38 | DVHPN2 ---
Progress Note - Dictate Date Seen: Nov 30, 2024 Has the PT tested + for MRSA If YES, has PT been informed?: No Medical Necessity Reason Pt with a Central, PICC or Fol: Yes The following are medically ne: Central Line, Gómez Catheter Reason for gómez catheter: Strict I&O Subjective Patient is awake alert, he has a speaking valve in place Patient is tolerating pureed diet and nectar thickened fluid; he can swallow pills Small-bowel series shows no obstruction No active GI bleeding is reported Cholecystostomy tube is draining bile vital signs Vital Sign Date Time Temp Pulse Resp B/P (MAP) Pulse Ox O2 Delivery O2 Flow Rate FiO2 11/30/24 15:39 81 11/30/24 15:39 22 97 Room Air* 0 21 11/30/24 15:00 152/74 (100) 11/30/24 12:00 98.1 98.1 Total Intake and Output 11/29/24 11/29/24 11/30/24 15:00 23:00 07:00 Intake Total 240 ml 790 ml 280 ml Output Total 560 ml 1160 ml Balance 240 ml 230 ml -880 ml medications Current Medications Medications Dose Ordered Sig/Wally Route Start Time Stop Time Status Last Admin Dose Admin Ondansetron HCl 4 mg Q4HP PRN IV 10/04/24 11:45 Morphine Sulfate 2 mg Q4HPRN PRN IV 10/04/24 11:45 Cancel Morphine Sulfate 2 mg Q30M PRN IV 10/04/24 11:45 Cancel Lorazepam 50 mg/ Sodium Chloride 50 ml @ 1 mls/hr Q24H IV 10/04/24 18:15 Cancel Amino Acids 0 ml @ 0 mls/hr PER PHARMACY IV 10/05/24 14:30 UNV Meropenem 50 ml @ 17 mls/hr Q12HR IV 10/07/24 10:00 UNV Levalbuterol HCl 0.625 mg Q6HR NEB 10/13/24 12:00 11/30/24 11:24 0.625 MG Ipratropium [place] 0.5 mg Q6HR NEB 10/13/24 12:00 11/30/24 11:24 0.5 MG Morphine Sulfate 2 mg Q4HPRN PRN IV 10/21/24 11:30 11/10/24 05:15 2 MG Pantoprazole Sodium 50 ml @ 0 mls/hr Q0M IV 10/28/24 16:15 Cancel Sodium Chloride 10 ml QSHIFT@10,22 IV 10/31/24 22:00 11/30/24 08:05 10 ML Acetaminophen/ Hydrocodone Bitart 1 tab Q4HPRN PRN PO 11/06/24 09:15 Labetalol HCl 10 mg Q2HPRN PRN IV 11/12/24 17:00 11/27/24 04:40 10 MG Clonidine HCl 0.1 mg Q7D TD 11/13/24 07:00 11/27/24 11:07 0.1 MG Lorazepam 1 mg Q4HP PRN IV 11/14/24 16:15 11/28/24 05:31 1 MG Albuterol 2.5 mg Q3HPRN PRN NEB 11/18/24 10:30 Lactulose 30 ml Q12HP PRN JT 11/24/24 09:00 11/27/24 14:18 30 ML Labetalol HCl 200 mg Q12HR GT 11/25/24 10:00 11/30/24 07:35 200 MG Nicotine 1 patch DAILY TD 11/26/24 10:00 11/30/24 09:25 1 PATCH Sucralfate 1 gm TID@0600,1130,2200 PO 11/27/24 09:15 11/30/24 10:54 1 GM Pantoprazole Sodium 40 mg BID IV 11/28/24 10:00 11/30/24 08:04 40 MG Enteral Nutritional Formula 240 ml TIDWM PO 11/28/24 12:00 11/30/24 10:53 240 ML Nifedipine 90 mg DAILY PO 11/29/24 10:00 11/30/24 08:05 90 MG Hydralazine HCl 50 mg Q12H PO 11/30/24 18:00 objective General Appearance: Alert, awake on trach collar HEENT: Atraumatic, PERRLA;Mild pallor, NG tube tolerating enteral tube feedings Lungs: Decreased breath sounds at bases) Cardiovascular: Regular rate, Normal S1, Normal S2, Abdomen: soft nontender well-healed midline scar without any drainage, hypoactive bowel sounds Cholecystostomy tube draining bile laboratory and microbiology Laboratory Tests 11/30/24 08:14 Test 11/30/24 08:14 Range/Units Serum Glucose 85 74-106 mg/dL Problems(with codes): (1) Elevated liver enzymes (2) Troponin level elevated (3) Shock (4) Altered mental status (5) Severe anemia (6) Acute kidney injury (7) Perforated viscus Prognosis Plan IV Protonix 40 mg q. 12 hrs Advance diet as tolerated Possible closure of tracheostomy next week Continue physical therapy Discharge planning as per hospitalist Dietary Evaluation Review Comments: 1. Continue TPN to meet at least 75% estimated needs 2. Continue current POC Expected Outcomes/Goals: FU 2-3 days to meet adequate energy & protein within 7 days of NPO Protein Calorie Malnutrition: Severe (rn) Plan discussed with: Patient, Other CC Plasma Assessment Blood Product Administration S: [id number] GURJIT NOBLE MD Nov 30, 2024 16:38
[2024-12-01] VITALS (31 sets, daily range): BP systolic 126–171; BP diastolic 60–100; PULSE 64–119; RESP 18–34; TEMP 97.9–98.8; O2SAT 96–100
--- NOTE | 2024-12-01 04:45 | DVH ---
CHEST RADIOGRAPH Indication: Interval changes Technique: Single frontal view of the chest was obtained Comparison: XY CHEST XRAY 1 VIEW on DOS: 11/18/24 FINDINGS: Lines and Tubes: Tracheostomy tube is unchanged. The enteric tube has been removed. Lungs: No focal consolidation. Pleura: Small left pleural effusion. No pneumothorax. Cardiomediastinal contours: Unremarkable Bones: No acute osseous abnormality. IMPRESSION: 1. Tracheostomy tube unchanged. 2. Small left pleural effusion.
[2024-12-01 06:36] LABS: Hematocrit 26.7 % (41.0-53.0); Hemoglobin 8.7 g/dL (13.5-17.5); Mean Corpuscular Hemoglobin 28.4 pg (28.0-32.0); Mean Corpuscular Volume 87.3 fL (80.0-100.0); Nucleated Red Blood Cells % 0.0 %
[2024-12-01 07:00] LABS: Alanine Aminotransferase 34 U/L (7-40); Anion Gap 8 (5-15); BUN/Creatinine Ratio 13.3 (10.0-20.0); Blood Urea Nitrogen 17 mg/dL (9-23); Calcium 9.0 mg/dL (8.7-10.4); Carbon Dioxide 27 mmol/L (20-31); Chloride 101 mmol/L (98-107); Glucose 82 mg/dL (74-106); Potassium 4.1 mmol/L (3.5-5.1); Total Protein 6.7 g/dL (5.7-8.2)
[2024-12-01 07:01] LABS: Bilirubin, Total 0.6 mg/dL (0.2-1.0)
[2024-12-01 07:02] LABS: Albumin 3.1 g/dL (3.2-4.8); Alkaline Phosphatase 135 U/L (46-116); Sodium 136 mmol/L (136-145)
--- NOTE | 2024-12-01 10:45 | DVHPN2 ---
Progress Note - Dictate Date Seen: Dec 01, 2024 Has the PT tested + for MRSA If YES, has PT been informed?: No Medical Necessity Reason Pt with a Central, PICC or Fol: Yes The following are medically ne: Central Line, Gómez Catheter Reason for gómez catheter: Strict I&O Subjective Mr. Perez is a 48 years old right-handed gentleman with a history of hypertension, dyslipidemia, multiple strokes, he was brought to the [facility] on 10/04/2024 with a chief company of recurrent syncope, in the hospital, the patient was found to have perforated viscus, and he went through surgical treatment, he was hospital course has been complicated with sepsis, septic shock, pneumonia, right upper extremity DVT. I saw him on 08/23/2023 for TIA I have seen and examined the patient, discussed with his nurse. He Keeps improving, no more confusion. He is oriented x3, he was able to walk a little bit with a walker, he wants to go home Blood culture, Urinalysis, 08/22/2023: Unremarkable UDS, 08/22/2023: Negative WBC/Hb/PLT'/MCV, 08/22/2023: 10.8/13.1/184/87.4, 10/28/2024: 15/8/487/89.3 10/31/2024: 24.3/9.1/77/88.4 Troponin 1 high-sensitivity, 08/22/2023: 336, 273/300 BUNs/CR, 08/22/2023: 15/1.45 10/31/2024: Two 9/2.42 GFR, 08/22/2023: 59 Liver function test, 10/04/2024: Unremarkable TBI/AST/ALT/AP, 10/04/2024: 0.6/410/335/31, 10/05/2024: 1.3/582/423/39, 10/31/2024: 3.6/54/98/117 TG/CHO L/LDL/HDL, 08/2023: 136/166/111/39 TSH, 08/23/2023: 4.25 Extremity venous study, right arm, 11/09/2024: Thrombus is seen in the cephalic vein in the forearm. DONAL, 08/23/2023: 1. No evidence of intracardiac source of embolus in the study conducted today. 2. Normal valves without significant masses or change vegetations were discernible. 3. No evidence of intra-atrial shunting by bubble study and color Doppler. 4. Mild atherosclerotic plaquing was visualized in the arch of the aorta without evidence of dissection in the visualized part CT head, 10/24/2024: 1. No intracranial hemorrhage or mass effect. 2. [id number]-[id number] chronic microvascular ischemic changes. 3. Old bilateral basal ganglia lacunar infarcts. 4. Small bilateral mastoid effusions. CT abdomen/pelvis, 10/04/2024: 1. Extensive intra-abdominal free air concerning for perforated viscus. Surgical consultation is recommended. 2. Enteritis is seen in multiple loops of small bowel in the left hemiabdomen. 3. Moderate abdominopelvic ascites. 4. Small right pleural effusion. CTA neck, head, 08/22/2023:1. CTA head demonstrates no evidence of large vessel occlusion, aneurysm, or significant stenosis. 2. CTA neck demonstrates no evidence of carotid or vertebral dissection or significant stenosis. 3. No noncontrast CT head was performed. 4. Additional findings as detailed above MRI head, 08/23/2023: No acute infarct, intracranial hemorrhage, mass effect, or hydrocephalus. Moderate periventricular and deep subcortical white matter T2 hyperintensities which are nonspecific, but most likely related to sequela of chronic microvascular ischemic changes (I have reviewed the MRI films with our in-house radiologist, Dr. Black, the patient has bilateral multiple subacute/chronic infarcts) MRI head, 11/01/2024: No acute cerebrovascular ischemia. [id number] chronic microvascular ischemic changes. Bilateral mastoid effusions. Old bilateral basal ganglia / lopes radiata infarcts. vital signs Vital Sign Date Time Temp Pulse Resp B/P (MAP) Pulse Ox O2 Delivery O2 Flow Rate FiO2 12/01/24 09:02 158/100 12/01/24 09:02 99 12/01/24 08:00 28 97 Room Air* 0 21 12/01/24 04:00 97.9 97.9 Total Intake and Output 11/30/24 11/30/24 12/01/24 15:00 23:00 07:00 Intake Total 60 ml 300 ml 210 ml Output Total 570 ml 1050 ml Balance 60 ml -270 ml -840 ml medications Current Medications Medications Dose Ordered Sig/Wally Route Start Time Stop Time Status Last Admin Dose Admin Ondansetron HCl 4 mg Q4HP PRN IV 10/04/24 11:45 Morphine Sulfate 2 mg Q4HPRN PRN IV 10/04/24 11:45 Cancel Morphine Sulfate 2 mg Q30M PRN IV 10/04/24 11:45 Cancel Lorazepam 50 mg/ Sodium Chloride 50 ml @ 1 mls/hr Q24H IV 10/04/24 18:15 Cancel Amino Acids 0 ml @ 0 mls/hr PER PHARMACY IV 10/05/24 14:30 UNV Meropenem 50 ml @ 17 mls/hr Q12HR IV 10/07/24 10:00 UNV Levalbuterol HCl 0.625 mg Q6HR NEB 10/13/24 12:00 12/01/24 06:45 0.625 MG Ipratropium [place] 0.5 mg Q6HR NEB 10/13/24 12:00 12/01/24 06:45 0.5 MG Morphine Sulfate 2 mg Q4HPRN PRN IV 10/21/24 11:30 11/10/24 05:15 2 MG Pantoprazole Sodium 50 ml @ 0 mls/hr Q0M IV 10/28/24 16:15 Cancel Sodium Chloride 10 ml QSHIFT@10,22 IV 10/31/24 22:00 12/01/24 09:02 10 ML Acetaminophen/ Hydrocodone Bitart 1 tab Q4HPRN PRN PO 11/06/24 09:15 Labetalol HCl 10 mg Q2HPRN PRN IV 11/12/24 17:00 11/27/24 04:40 10 MG Clonidine HCl 0.1 mg Q7D TD 11/13/24 07:00 11/27/24 11:07 0.1 MG Lorazepam 1 mg Q4HP PRN IV 11/14/24 16:15 11/28/24 05:31 1 MG Albuterol 2.5 mg Q3HPRN PRN NEB 11/18/24 10:30 Lactulose 30 ml Q12HP PRN JT 11/24/24 09:00 11/27/24 14:18 30 ML Labetalol HCl 200 mg Q12HR GT 11/25/24 10:00 12/01/24 09:02 200 MG Nicotine 1 patch DAILY TD 11/26/24 10:00 11/30/24 09:25 1 PATCH Sucralfate 1 gm TID@0600,1130,2200 PO 11/27/24 09:15 12/01/24 06:13 1 GM Pantoprazole Sodium 40 mg BID IV 11/28/24 10:00 12/01/24 09:02 40 MG Enteral Nutritional Formula 240 ml TIDWM PO 11/28/24 12:00 12/01/24 09:07 240 ML Nifedipine 90 mg DAILY PO 11/29/24 10:00 12/01/24 09:02 90 MG Hydralazine HCl 50 mg Q12H PO 11/30/24 18:00 12/01/24 06:13 50 MG objective General: the patient is well developed and nourished. No acute distress. MENTAL STATUS: Subjective SPEECH, LANGUAGE, HIGHER CORTICAL FUNCTION: He does not vocalize/status post tracheostomy. CRANIAL NERVES:Intact visual ansari to confrontation (visual thread). Pupils are equal, round and reactive. EOMs full and conjugate. Mandibular strength intact. Facial muscles symmetrical and strength intact. SENSATION: Sensation to touch and pinprick is unremarkable MOTOR: Normal muscle bulk. No fasciculations. No abnormal movements or posturing. Muscle power in the extremities: 4-5/5, right side stronger5 REFLEXES: Deep tendon reflexes are increased bilaterally. No pathological reflexes. CEREBELLAR/COORDINATION: Deferred GAIT/STATION: deferred laboratory and microbiology Laboratory Tests 12/01/24 04:52 Test 12/01/24 04:52 Range/Units Serum Glucose 82 74-106 mg/dL Problem List Altered mental status Metabolic encephalopathy secondary to sepsis, septic shock, pneumonia Hypoxic encephalopathy Viscus perforation status post surgical repair GI bleeding Anemia Fever/ Sepsis/septic shock Respiratory failure S/P tracheostomy Multiple strokes Secondary to history methamphetamine, cocaine, alcohol use History of alcohol abuse History of cocaine, methamphetamine abuse Hyperreflexia secondary to multiple strokes Right upper extremity DVT ICU myopathy Assessment/Plan Monitoring Supportive treatment ANNIE care Stabilize vitals, PRN Respiratory suppor PRN Follow-up labs IV antibiotics Protonix TPN Quit tobacco smoking No more alcohol, street drug abuse Stroke risk factors discussed Up to chair Physical therapy GI on case Infectious disease on case Pulmonology on case Hematology on case Nephrology on case More recommended per clinical course This medical document was created using an electronic medical record system with [employer] dictation system. Although this document has been carefully reviewed, there may still be some phonetic and typographical errors. These areas are purely typographical due to imperfections of the software programs, and do not reflect any compromise in the patient's medical care. Prognosis poor Dietary Evaluation Review Comments: 1. Continue TPN to meet at least 75% estimated needs 2. Continue current POC Expected Outcomes/Goals: FU 2-3 days to meet adequate energy & protein within 7 days of NPO Protein Calorie Malnutrition: Severe (rn) Plan discussed with: Patient, Other CC Plasma Assessment Blood Product Administration S: [id number] LEANDRO BLACK MD Dec 01, 2024 10:45
--- NOTE | 2024-12-01 12:07 | DVHPN2 ---
Subjective Patient is alert following commands. Denies any symptoms. Reviewed: Care Plan, H&P, Labs, Medications, Previous Orders, Radiology, Other (Consultants) Changes from previous H/P or p: No Changes General: Per HPI Objective Vitals Vital Signs Date Time Temp Pulse Resp B/P (MAP) Pulse Ox O2 Delivery O2 Flow Rate FiO2 12/01/24 12:03 82 23 100 12/01/24 11:57 Room Air 0.0 12/01/24 11:57 21 12/01/24 11:03 153/96 12/01/24 08:00 97.9 97.9 Intake/Output Intake and Output 12/01/24 07:00 Intake Total 570 ml Output Total 1620 ml Balance -1050 ml Intake Oral 510 ml IV Total 60 ml Output Urine Total 1500 ml Gastric Drainage Total 50 ml Drainage Total 70 ml # Bowel Movements 3 General Appearance: Alert, Oriented X3, Cooperative, mild distress, Other HEENT: Atraumatic, PERRLA, Other (Tracheostomy, size five Shiley) Neck: Other (Tracheostomy) Lungs: Clear to auscultation, Normal air movement, Other Cardiovascular: Normal S1, Normal S2, Other Abdomen: Other Extremities: Normal pulses Neuro: Cranial nerves 3-12 NL, Other Skin: Dry, Intact, Wounds, Other Psych/Mental Status: Other Medications Current Medications Medications Dose Ordered Sig/Wally Route Start Time Stop Time Status Last Admin Dose Admin Ondansetron HCl 4 mg Q4HP PRN IV 10/04/24 11:45 Morphine Sulfate 2 mg Q4HPRN PRN IV 10/04/24 11:45 Cancel Morphine Sulfate 2 mg Q30M PRN IV 10/04/24 11:45 Cancel Lorazepam 50 mg/ Sodium Chloride 50 ml @ 1 mls/hr Q24H IV 10/04/24 18:15 Cancel Amino Acids 0 ml @ 0 mls/hr PER PHARMACY IV 10/05/24 14:30 UNV Meropenem 50 ml @ 17 mls/hr Q12HR IV 10/07/24 10:00 UNV Levalbuterol HCl 0.625 mg Q6HR NEB 10/13/24 12:00 12/01/24 11:55 0.625 MG Ipratropium [place] 0.5 mg Q6HR NEB 10/13/24 12:00 12/01/24 11:55 0.5 MG Morphine Sulfate 2 mg Q4HPRN PRN IV 10/21/24 11:30 11/10/24 05:15 2 MG Pantoprazole Sodium 50 ml @ 0 mls/hr Q0M IV 10/28/24 16:15 Cancel Sodium Chloride 10 ml QSHIFT@10,22 IV 10/31/24 22:00 12/01/24 09:02 10 ML Acetaminophen/ Hydrocodone Bitart 1 tab Q4HPRN PRN PO 11/06/24 09:15 Labetalol HCl 10 mg Q2HPRN PRN IV 11/12/24 17:00 12/01/24 11:03 10 MG Clonidine HCl 0.1 mg Q7D TD 11/13/24 07:00 11/27/24 11:07 0.1 MG Lorazepam 1 mg Q4HP PRN IV 11/14/24 16:15 11/28/24 05:31 1 MG Albuterol 2.5 mg Q3HPRN PRN NEB 11/18/24 10:30 Lactulose 30 ml Q12HP PRN JT 11/24/24 09:00 11/27/24 14:18 30 ML Labetalol HCl 200 mg Q12HR GT 11/25/24 10:00 12/01/24 09:02 200 MG Nicotine 1 patch DAILY TD 11/26/24 10:00 12/01/24 11:01 1 PATCH Sucralfate 1 gm TID@0600,1130,2200 PO 11/27/24 09:15 12/01/24 11:03 1 GM Pantoprazole Sodium 40 mg BID IV 11/28/24 10:00 12/01/24 09:02 40 MG Enteral Nutritional Formula 240 ml TIDWM PO 11/28/24 12:00 12/01/24 09:07 240 ML Nifedipine 90 mg DAILY PO 11/29/24 10:00 12/01/24 09:02 90 MG Hydralazine HCl 50 mg Q12H PO 11/30/24 18:00 12/01/24 06:13 50 MG Laboratory Results Laboratory Tests 12/01/24 04:52 Chemistry Test 12/01/24 04:52 Albumin 3.1 g/dL (3.2-4.8) L Calcium Level 9.0 mg/dL (8.7-10.4) Total Protein 6.7 g/dL (5.7-8.2) LFT Test 12/01/24 04:52 Alanine Aminotransferase (ALT) 34 U/L (7-40) Alkaline Phosphatase 135 U/L (46-116) H Aspartate Amino Transferase (AST) 30 U/L (13-40) Total Bilirubin 0.6 mg/dL (0.2-1.0) Urinalysis Test 10/05/24 15:05 10/26/24 20:33 11/07/24 12:40 Urine Mucus Few (None Seen) Urine Color Light-yellow (Yellow) Urine Clarity Clear (Clear) Urine pH 7.0 (5.0-9.0) Urine Specific [place] 1.014 (1.001-1.035) Urine Protein 1+ (Negative) H Urine Ketones Negative (Negative) Urine Blood 1+ /uL (Negative) H Urine Nitrite Negative (Negative) Urine Bilirubin Negative (Negative) Urine Urobilinogen Normal mg/dL (Negative) Urine Leukocyte Esterase Negative /uL (Negative) Urine RBC 1 /hpf (0 - 3) Urine Microscopic WBC 3 /HPF (0-3) Urine Squamous Epithelial Cells None seen /hpf (<5) Urine Bacteria Few /hpf (None Seen) H Urine Glucose Normal mg/dL (Normal) Urine Creatinine 64.63 mg/dL (30.0-125.0) Urine Protein/Creatinine Ratio 3.11 Urine Sodium 34 mmol/L (40-220) L Urine Total Protein 200.7 mg/dL (1-14) H Microbiology Microbiology Date/Time Source Procedure Growth Status 11/20/24 09:56 Sputum Gram Stain - Final Complete 11/20/24 09:56 Sputum Respiratory Culture - Final Complete 11/20/24 08:16 Blood Blood Culture - Final NO GROWTH AFTER 5 DAYS OF INCUBATION. Complete 11/10/24 22:44 Voided Urine Urine Culture - Final Complete 10/18/24 09:21 Pleural Fluid Gram Stain - Final Complete 10/18/24 09:21 Pleural Fluid Body Fluid Culture - Final Complete 10/04/24 17:10 Nose MRSA Screen - Final Complete Labs and/or images reviewed: Labs reviewed by me, Image(s) reviewed by me Assessment/Plan Assessment/Plan Impression: -severe septic shock -pneumoperitoneum secondary to perforated gastric ulcer -acute kidney injury, hemodynamically mediated, probable VMN -acute hypoxic respiratory failure -shock liver -nicotine dependence -history of CVA -right upper extremity DVT -multifocal pneumonia, probable Gram-positive/Gram-negative etiology -anemia secondary to nutrition, renal failure -bilateral pleural effusions -small left pneumothorax -Failure of ventilator weaning, status post tracheostomy -fungemia Plan: Events: No events overnight. Pressure better controlled. Labs benign. -bladder training, DC Barrios when appropriate -continue Protonix 40 mg b.i.d. -continue current antihypertensive regimen. Increase nifedipine XL to 120 mg daily -physical therapy, out of bed as tolerated -repeat labs in am Critical care time spent with patient discussing and formulating plan of care: 40 minutes. This does not include time spent performing procedures. This medical document was created using an electronic medical record system with [employer] dictation system. Although this document has been carefully reviewed, there may still be some phonetic and typographical errors. These areas are purely typographical due to imperfections of the software programs, and do not reflect any compromise in the patient's medical care. Plan discussed with: Patient, Other (RN) My Orders Orders - CHEYENNE PIKE NP Procedure Category Date Status Time Initiate Vte CINTHIA 12/01/24 In Process Prophylaxis 11:28 Communication Order ORDERS 12/01/24 Transmitted 11:59 Nifedipine Er PHA 12/02/24 Transmitted (Procardia Xl 10:00 Date of Service: Dec 01, 2024 Billing Provider: CHEYENNE PIKE NP Common Visit Codes: 82560-[id number] CARE 30-74 MIN CHEYENNE PIKE NP Dec 01, 2024 12:07
[2024-12-01] MEDS: ALBUTEROL SULF 2.5 MG/0.5ML(0.5%) NEB SOLN NEB PRN (18:13)
--- NOTE | 2024-12-01 18:46 | DVHPN2 ---
Progress Note - Dictate Date Seen: Dec 01, 2024 Has the PT tested + for MRSA If YES, has PT been informed?: No Medical Necessity Reason Pt with a Central, PICC or Fol: Yes The following are medically ne: Central Line, Gómez Catheter Reason for gómez catheter: Strict I&O vital signs Vital Sign Date Time Temp Pulse Resp B/P (MAP) Pulse Ox O2 Delivery O2 Flow Rate FiO2 12/01/24 18:16 143/83 12/01/24 17:00 94 23 97 12/01/24 16:00 Room Air* 0 21 12/01/24 16:00 98.8 98.8 Total Intake and Output 11/30/24 11/30/24 12/01/24 15:00 23:00 07:00 Intake Total 60 ml 300 ml 210 ml Output Total 570 ml 1050 ml Balance 60 ml -270 ml -840 ml medications Current Medications Medications Dose Ordered Sig/Wally Route Start Time Stop Time Status Last Admin Dose Admin Ondansetron HCl 4 mg Q4HP PRN IV 10/04/24 11:45 Morphine Sulfate 2 mg Q4HPRN PRN IV 10/04/24 11:45 Cancel Morphine Sulfate 2 mg Q30M PRN IV 10/04/24 11:45 Cancel Lorazepam 50 mg/ Sodium Chloride 50 ml @ 1 mls/hr Q24H IV 10/04/24 18:15 Cancel Amino Acids 0 ml @ 0 mls/hr PER PHARMACY IV 10/05/24 14:30 UNV Meropenem 50 ml @ 17 mls/hr Q12HR IV 10/07/24 10:00 UNV Levalbuterol HCl 0.625 mg Q6HR NEB 10/13/24 12:00 12/01/24 18:14 0.625 MG Ipratropium [place] 0.5 mg Q6HR NEB 10/13/24 12:00 12/01/24 18:13 0.5 MG Morphine Sulfate 2 mg Q4HPRN PRN IV 10/21/24 11:30 11/10/24 05:15 2 MG Pantoprazole Sodium 50 ml @ 0 mls/hr Q0M IV 10/28/24 16:15 Cancel Sodium Chloride 10 ml QSHIFT@22 IV 10/31/24 22:00 12/01/24 09:02 10 ML Acetaminophen/ Hydrocodone Bitart 1 tab Q4HPRN PRN PO 11/06/24 09:15 Labetalol HCl 10 mg Q2HPRN PRN IV 11/12/24 17:00 12/01/24 11:03 10 MG Clonidine HCl 0.1 mg Q7D TD 11/13/24 07:00 11/27/24 11:07 0.1 MG Lorazepam 1 mg Q4HP PRN IV 11/14/24 16:15 11/28/24 05:31 1 MG Albuterol 2.5 mg Q3HPRN PRN NEB 11/18/24 10:30 12/01/24 18:13 2.5 MG Lactulose 30 ml Q12HP PRN JT 11/24/24 09:00 11/27/24 14:18 30 ML Labetalol HCl 200 mg Q12HR GT 11/25/24 10:00 12/01/24 09:02 200 MG Nicotine 1 patch DAILY TD 11/26/24 10:00 12/01/24 11:01 1 PATCH Sucralfate 1 gm TID@0600,1130,2200 PO 11/27/24 09:15 12/01/24 11:03 1 GM Pantoprazole Sodium 40 mg BID IV 11/28/24 10:00 12/01/24 09:02 40 MG Enteral Nutritional Formula 240 ml TIDWM PO 11/28/24 12:00 12/01/24 18:16 240 ML Hydralazine HCl 50 mg Q12H PO 11/30/24 18:00 12/01/24 18:16 50 MG Nifedipine 120 mg DAILY PO 12/02/24 10:00 laboratory and microbiology Laboratory Tests 12/01/24 04:52 Test 12/01/24 04:52 Range/Units Serum Glucose 82 74-106 mg/dL Assessment/Plan Impression Acute hypoxemic respiratory failure S/p tracheostomy Perforated viscus Septic shock Smoker Patient seen and examined in ICU Events S/p tracheostomy Size [address] No new complaints No distress Labs and imaging reviewed ABG reviewed Management Supplemental oxygen as needed trache care per RT completed abx afebrile Bronchodilators Monitor renal function HD per nephrology Management deferred Monitor electrolytes Supplement as needed Nutritional support Continue ambulation F/u physical therapy DVT prophylaxis Dietary Evaluation Review Comments: 1. Continue TPN to meet at least 75% estimated needs 2. Continue current POC Expected Outcomes/Goals: FU 2-3 days to meet adequate energy & protein within 7 days of NPO Protein Calorie Malnutrition: Severe (rn) Plan discussed with: Patient CC Plasma Assessment Blood Product Administration S: [id number] VALENTE DEE MD Dec 01, 2024 18:46
[2024-12-02] VITALS (31 sets, daily range): BP systolic 112–159; BP diastolic 57–98; PULSE 80–104; RESP 18–34; TEMP 98.5–98.8; O2SAT 94–100
[2024-12-02 05:28] LABS: Hematocrit 26.7 % (41.0-53.0); Hemoglobin 8.7 g/dL (13.5-17.5); Mean Corpuscular Hemoglobin 28.0 pg (28.0-32.0); Mean Corpuscular Volume 86.2 fL (80.0-100.0); Nucleated Red Blood Cells % 0.1 %
[2024-12-02 05:39] LABS: Calcium 9.3 mg/dL (8.7-10.4); Chloride 101 mmol/L (98-107); Potassium 4.0 mmol/L (3.5-5.1)
[2024-12-02 05:40] LABS: Anion Gap 6 (5-15); Carbon Dioxide 28 mmol/L (20-31)
[2024-12-02 05:45] LABS: BUN/Creatinine Ratio 15.1 (10.0-20.0); Blood Urea Nitrogen 18 mg/dL (9-23); Glucose 89 mg/dL (74-106)
[2024-12-02 05:49] LABS: Sodium 135 mmol/L (136-145)
--- NOTE | 2024-12-02 09:38 | DVHPN2 ---
Subjective Patient is alert following commands. Denies any symptoms. Reviewed: Care Plan, H&P, Labs, Medications, Previous Orders, Radiology, Other (Consultants) Changes from previous H/P or p: No Changes General: Per HPI Objective Vitals Vital Signs Date Time Temp Pulse Resp B/P (MAP) Pulse Ox O2 Delivery O2 Flow Rate FiO2 12/02/24 08:00 98 27 97 Room Air* 0 21 12/02/24 07:00 133/63 (86) 12/02/24 04:00 98.8 98.8 Intake/Output Intake and Output 12/02/24 07:00 Intake Total 2560 ml Output Total 1270 ml Balance 1290 ml Intake Oral 2560 ml Output Urine Total 950 ml Drainage Total 320 ml # Bowel Movements 5 General Appearance: Alert, Oriented X3, Cooperative, mild distress, Other HEENT: Atraumatic, PERRLA, Other (Tracheostomy, size five Shiley) Neck: Other (Tracheostomy) Lungs: Clear to auscultation, Normal air movement, Other Cardiovascular: Normal S1, Normal S2, Other Abdomen: Other Extremities: Normal pulses Neuro: Cranial nerves 3-12 NL, Other Skin: Dry, Intact, Wounds, Other Psych/Mental Status: Other Medications Current Medications Medications Dose Ordered Sig/Wally Route Start Time Stop Time Status Last Admin Dose Admin Ondansetron HCl 4 mg Q4HP PRN IV 10/04/24 11:45 Morphine Sulfate 2 mg Q4HPRN PRN IV 10/04/24 11:45 Cancel Morphine Sulfate 2 mg Q30M PRN IV 10/04/24 11:45 Cancel Lorazepam 50 mg/ Sodium Chloride 50 ml @ 1 mls/hr Q24H IV 10/04/24 18:15 Cancel Amino Acids 0 ml @ 0 mls/hr PER PHARMACY IV 10/05/24 14:30 UNV Meropenem 50 ml @ 17 mls/hr Q12HR IV 10/07/24 10:00 UNV Levalbuterol HCl 0.625 mg Q6HR NEB 10/13/24 12:00 12/02/24 06:09 0.625 MG Ipratropium [place] 0.5 mg Q6HR NEB 10/13/24 12:00 12/02/24 06:09 0.5 MG Morphine Sulfate 2 mg Q4HPRN PRN IV 10/21/24 11:30 6/23/25 05:15 2 MG Pantoprazole Sodium 50 ml @ 0 mls/hr Q0M IV 10/28/24 16:15 Cancel Sodium Chloride 10 ml QSHIFT@10,22 IV 10/31/24 22:00 12/01/24 21:30 10 ML Acetaminophen/ Hydrocodone Bitart 1 tab Q4HPRN PRN PO 11/06/24 09:15 Labetalol HCl 10 mg Q2HPRN PRN IV 11/12/24 17:00 12/01/24 11:03 10 MG Clonidine HCl 0.1 mg Q7D TD 11/13/24 07:00 11/27/24 11:07 0.1 MG Lorazepam 1 mg Q4HP PRN IV 11/14/24 16:15 11/28/24 05:31 1 MG Albuterol 2.5 mg Q3HPRN PRN NEB 11/18/24 10:30 12/01/24 18:13 2.5 MG Lactulose 30 ml Q12HP PRN JT 11/24/24 09:00 11/27/24 14:18 30 ML Labetalol HCl 200 mg Q12HR GT 11/25/24 10:00 12/01/24 21:31 200 MG Nicotine 1 patch DAILY TD 11/26/24 10:00 12/01/24 11:01 1 PATCH Sucralfate 1 gm TID@0600,1130,2200 PO 11/27/24 09:15 12/01/24 21:30 1 GM Pantoprazole Sodium 40 mg BID IV 11/28/24 10:00 12/01/24 21:30 40 MG Enteral Nutritional Formula 240 ml TIDWM PO 11/28/24 12:00 12/01/24 18:16 240 ML Hydralazine HCl 50 mg Q12H PO 11/30/24 18:00 12/02/24 05:31 50 MG Nifedipine 120 mg DAILY PO 12/02/24 10:00 Laboratory Results Laboratory Tests 12/02/24 05:00 Chemistry Test 12/02/24 05:00 Calcium Level 9.3 mg/dL (8.7-10.4) Urinalysis Test 10/05/24 15:05 10/26/24 20:33 11/07/24 12:40 Urine Mucus Few (None Seen) Urine Color Light-yellow (Yellow) Urine Clarity Clear (Clear) Urine pH 7.0 (5.0-9.0) Urine Specific [place] 1.014 (1.001-1.035) Urine Protein 1+ (Negative) H Urine Ketones Negative (Negative) Urine Blood 1+ /uL (Negative) H Urine Nitrite Negative (Negative) Urine Bilirubin Negative (Negative) Urine Urobilinogen Normal mg/dL (Negative) Urine Leukocyte Esterase Negative /uL (Negative) Urine RBC 1 /hpf (0 - 3) Urine Microscopic WBC 3 /HPF (0-3) Urine Squamous Epithelial Cells None seen /hpf (<5) Urine Bacteria Few /hpf (None Seen) H Urine Glucose Normal mg/dL (Normal) Urine Creatinine 64.63 mg/dL (30.0-125.0) Urine Protein/Creatinine Ratio 3.11 Urine Sodium 34 mmol/L (40-220) L Urine Total Protein 200.7 mg/dL (1-14) H Microbiology Microbiology Date/Time Source Procedure Growth Status 11/20/24 09:56 Sputum Gram Stain - Final Complete 11/20/24 09:56 Sputum Respiratory Culture - Final Complete 11/20/24 08:16 Blood Blood Culture - Final NO GROWTH AFTER 5 DAYS OF INCUBATION. Complete 11/10/24 22:44 Voided Urine Urine Culture - Final Complete 10/18/24 09:21 Pleural Fluid Gram Stain - Final Complete 10/18/24 09:21 Pleural Fluid Body Fluid Culture - Final Complete 10/04/24 17:10 Nose MRSA Screen - Final Complete Labs and/or images reviewed: Labs reviewed by me, Image(s) reviewed by me Assessment/Plan Assessment/Plan Impression: -severe septic shock -pneumoperitoneum secondary to perforated gastric ulcer -acute kidney injury, hemodynamically mediated, probable VMN -acute hypoxic respiratory failure -shock liver -nicotine dependence -history of CVA -right upper extremity DVT -multifocal pneumonia, probable Gram-positive/Gram-negative etiology -anemia secondary to nutrition, renal failure -bilateral pleural effusions -small left pneumothorax -Failure of ventilator weaning, status post tracheostomy -fungemia Plan: Events: No events overnight. Continues to have bladder training. Noted to get out of bed with minimal assistance. -bladder training, DC Barrios when appropriate -continue Protonix 40 mg b.i.d. -continue current antihypertensive regimen -physical therapy, out of bed as tolerated -repeat labs in am Total time spent with patient discussing and formulating plan of care: 35 minutes. This medical document was created using an electronic medical record system with [employer] dictation system. Although this document has been carefully reviewed, there may still be some phonetic and typographical errors. These areas are purely typographical due to imperfections of the software programs, and do not reflect any compromise in the patient's medical care. Plan discussed with: Patient, Other (RN) My Orders Orders - CHEYENNE PIKE NP Procedure Category Date Status Time Initiate Vte CINTHIA 12/01/24 In Process Prophylaxis 11:28 Communication Order ORDERS 12/01/24 Transmitted 11:59 Nifedipine Er PHA 12/02/24 In Process (Procardia Xl 10:00 Date of Service: Dec 02, 2024 Billing Provider: CHEYENNE PIKE NP Common Visit Codes: [id number] INP/OBS CARE(HIGH) CHEYENNE PIKE NP Dec 02, 2024 09:38
--- NOTE | 2024-12-02 09:48 | DVHPN2 ---
Progress Note - Dictate Date Seen: Dec 02, 2024 Has the PT tested + for MRSA If YES, has PT been informed?: No Medical Necessity Reason Pt with a Central, PICC or Fol: Yes The following are medically ne: Central Line, Gómez Catheter Reason for gómez catheter: Strict I&O Subjective Mr. Perez is a 48 years old right-handed gentleman with a history of hypertension, dyslipidemia, multiple strokes, he was brought to the [facility] on 10/04/2024 with a chief company of recurrent syncope, in the hospital, the patient was found to have perforated viscus, and he went through surgical treatment, he was hospital course has been complicated with sepsis, septic shock, pneumonia, right upper extremity DVT. I saw him on 08/23/2023 for TIA I have seen and examined the patient, discussed with his nurse. He is oriented x3, physical therapy work with him this morning but he was too weak, they are coming back later today Blood culture, Urinalysis, 08/22/2023: Unremarkable UDS, 08/22/2023: Negative WBC/Hb/PLT'/MCV, 08/22/2023: 10.8/13.1/184/87.4, 10/28/2024: 15/8/487/89.3 10/31/2024: 24.3/9.1/77/88.4 Troponin 1 high-sensitivity, 08/22/2023: 336, 273/300 BUNs/CR, 08/22/2023: 15/1.45 10/31/2024: Two 9/2.42 GFR, 08/22/2023: 59 Liver function test, 10/04/2024: Unremarkable TBI/AST/ALT/AP, 10/04/2024: 0.6/410/335/31, 10/05/2024: 1.3/582/423/39, 10/31/2024: 3.6/54/98/117 TG/CHO L/LDL/HDL, 08/2023: 136/166/111/39 TSH, 08/23/2023: 4.25 Extremity venous study, right arm, 11/09/2024: Thrombus is seen in the cephalic vein in the forearm. DONAL, 08/23/2023: 1. No evidence of intracardiac source of embolus in the study conducted today. 2. Normal valves without significant masses or change vegetations were discernible. 3. No evidence of intra-atrial shunting by bubble study and color Doppler. 4. Mild atherosclerotic plaquing was visualized in the arch of the aorta without evidence of dissection in the visualized part CT head, 10/24/2024: 1. No intracranial hemorrhage or mass effect. 2. [id number] chronic microvascular ischemic changes. 3. Old bilateral basal ganglia lacunar infarcts. 4. Small bilateral mastoid effusions. CT abdomen/pelvis, 10/04/2024: 1. Extensive intra-abdominal free air concerning for perforated viscus. Surgical consultation is recommended. 2. Enteritis is seen in multiple loops of small bowel in the left hemiabdomen. 3. Moderate abdominopelvic ascites. 4. Small right pleural effusion. CTA neck, head, 08/22/2023:1. CTA head demonstrates no evidence of large vessel occlusion, aneurysm, or significant stenosis. 2. CTA neck demonstrates no evidence of carotid or vertebral dissection or significant stenosis. 3. No noncontrast CT head was performed. 4. Additional findings as detailed above MRI head, 08/23/2023: No acute infarct, intracranial hemorrhage, mass effect, or hydrocephalus. Moderate periventricular and deep subcortical white matter T2 hyperintensities which are nonspecific, but most likely related to sequela of chronic microvascular ischemic changes (I have reviewed the MRI films with our in-house radiologist, Dr. Black, the patient has bilateral multiple subacute/chronic infarcts) MRI head, 11/01/2024: No acute cerebrovascular ischemia. [id number] chronic microvascular ischemic changes. Bilateral mastoid effusions. Old bilateral basal ganglia / lopes radiata infarcts. vital signs Vital Sign Date Time Temp Pulse Resp B/P (MAP) Pulse Ox O2 Delivery O2 Flow Rate FiO2 12/02/24 08:00 27 Room Air* 0 21 12/02/24 08:00 90 12/02/24 08:00 97 12/02/24 07:00 133/63 (86) 12/02/24 04:00 98.8 98.8 Total Intake and Output 12/01/24 12/01/24 12/02/24 14:59 22:59 06:59 Intake Total 960 ml 1200 ml 400 ml Output Total 610 ml 660 ml Balance 960 ml 590 ml -260 ml medications Current Medications Medications Dose Ordered Sig/Wally Route Start Time Stop Time Status Last Admin Dose Admin Ondansetron HCl 4 mg Q4HP PRN IV 10/04/24 11:45 Morphine Sulfate 2 mg Q4HPRN PRN IV 10/04/24 11:45 Cancel Morphine Sulfate 2 mg Q30M PRN IV 10/04/24 11:45 Cancel Lorazepam 50 mg/ Sodium Chloride 50 ml @ 1 mls/hr Q24H IV 10/04/24 18:15 Cancel Amino Acids 0 ml @ 0 mls/hr PER PHARMACY IV 10/05/24 14:30 UNV Meropenem 50 ml @ 17 mls/hr Q12HR IV 10/07/24 10:00 UNV Levalbuterol HCl 0.625 mg Q6HR NEB 10/13/24 12:00 12/02/24 06:09 0.625 MG Ipratropium [place] 0.5 mg Q6HR NEB 10/13/24 12:00 12/02/24 06:09 0.5 MG Morphine Sulfate 2 mg Q4HPRN PRN IV 10/21/24 11:30 11/10/24 05:15 2 MG Pantoprazole Sodium 50 ml @ 0 mls/hr Q0M IV 10/28/24 16:15 Cancel Sodium Chloride 10 ml QSHIFT@10,22 IV 10/31/24 22:00 12/01/24 21:30 10 ML Acetaminophen/ Hydrocodone Bitart 1 tab Q4HPRN PRN PO 11/06/24 09:15 Labetalol HCl 10 mg Q2HPRN PRN IV 11/12/24 17:00 12/01/24 11:03 10 MG Clonidine HCl 0.1 mg Q7D TD 11/13/24 07:00 11/27/24 11:07 0.1 MG Lorazepam 1 mg Q4HP PRN IV 11/14/24 16:15 11/28/24 05:31 1 MG Albuterol 2.5 mg Q3HPRN PRN NEB 11/18/24 10:30 12/01/24 18:13 2.5 MG Lactulose 30 ml Q12HP PRN JT 11/24/24 09:00 11/27/24 14:18 30 ML Labetalol HCl 200 mg Q12HR GT 11/25/24 10:00 12/01/24 21:31 200 MG Nicotine 1 patch DAILY TD 11/26/24 10:00 12/01/24 11:01 1 PATCH Sucralfate 1 gm TID@0600,1130,2200 PO 11/27/24 09:15 12/01/24 21:30 1 GM Pantoprazole Sodium 40 mg BID IV 11/28/24 10:00 12/01/24 21:30 40 MG Enteral Nutritional Formula 240 ml TIDWM PO 11/28/24 12:00 12/01/24 18:16 240 ML Hydralazine HCl 50 mg Q12H PO 11/30/24 18:00 12/02/24 05:31 50 MG Nifedipine 120 mg DAILY PO 12/02/24 10:00 objective General: the patient is well developed and nourished. No acute distress. MENTAL STATUS: Subjective SPEECH, LANGUAGE, HIGHER CORTICAL FUNCTION: He does not vocalize/status post tracheostomy. CRANIAL NERVES:Intact visual ansari to confrontation (visual thread). Pupils are equal, round and reactive. EOMs full and conjugate. Mandibular strength intact. Facial muscles symmetrical and strength intact. SENSATION: Sensation to touch and pinprick is unremarkable MOTOR: Normal muscle bulk. No fasciculations. No abnormal movements or posturing. Muscle power in the extremities: 4-5/5, right side stronger5 REFLEXES: Deep tendon reflexes are increased bilaterally. No pathological reflexes. CEREBELLAR/COORDINATION: Deferred GAIT/STATION: deferred laboratory and microbiology Laboratory Tests 12/02/24 05:00 Test 12/02/24 05:00 Range/Units Serum Glucose 89 74-106 mg/dL Problem List Altered mental status Metabolic encephalopathy secondary to sepsis, septic shock, pneumonia Hypoxic encephalopathy Viscus perforation status post surgical repair GI bleeding Anemia Fever/ Sepsis/septic shock Respiratory failure S/P tracheostomy Multiple strokes Secondary to history methamphetamine, cocaine, alcohol use History of alcohol abuse History of cocaine, methamphetamine abuse Hyperreflexia secondary to multiple strokes Right upper extremity DVT ICU myopathy Assessment/Plan Monitoring Supportive treatment ANNIE care Stabilize vitals, PRN Respiratory suppor PRN Follow-up labs IV antibiotics Protonix TPN Quit tobacco smoking No more alcohol, street drug abuse Stroke risk factors discussed Up to chair Physical therapy GI on case Infectious disease on case Pulmonology on case Hematology on case Nephrology on case More recommended per clinical course This medical document was created using an electronic medical record system with [employer] dictation system. Although this document has been carefully reviewed, there may still be some phonetic and typographical errors. These areas are purely typographical due to imperfections of the software programs, and do not reflect any compromise in the patient's medical care. Prognosis poor Dietary Evaluation Review Comments: 1. Continue TPN to meet at least 75% estimated needs 2. Continue current POC Expected Outcomes/Goals: FU 2-3 days to meet adequate energy & protein within 7 days of NPO Protein Calorie Malnutrition: Severe (rn) Plan discussed with: Other CC Plasma Assessment Blood Product Administration S: [id number] LEANDRO BLACK MD Dec 02, 2024 09:48
--- NOTE | 2024-12-02 18:16 | DVHPN2 ---
Progress Note - Dictate Date Seen: Dec 02, 2024 Has the PT tested + for MRSA If YES, has PT been informed?: No Medical Necessity Reason Pt with a Central, PICC or Fol: Yes The following are medically ne: Central Line, Gómez Catheter Reason for gómez catheter: Strict I&O vital signs Vital Sign Date Time Temp Pulse Resp B/P (MAP) Pulse Ox O2 Delivery O2 Flow Rate FiO2 12/02/24 18:09 94 Room Air 0.0 12/02/24 18:09 21 12/02/24 18:09 100 30 12/02/24 18:00 135/79 (97) 12/02/24 16:00 98.7 98.7 Total Intake and Output 12/01/24 12/01/24 12/02/24 15:00 23:00 07:00 Intake Total 960 ml 1200 ml 400 ml Output Total 610 ml 660 ml Balance 960 ml 590 ml -260 ml medications Current Medications Medications Dose Ordered Sig/Wally Route Start Time Stop Time Status Last Admin Dose Admin Ondansetron HCl 4 mg Q4HP PRN IV 10/04/24 11:45 Morphine Sulfate 2 mg Q4HPRN PRN IV 10/04/24 11:45 Cancel Morphine Sulfate 2 mg Q30M PRN IV 10/04/24 11:45 Cancel Lorazepam 50 mg/ Sodium Chloride 50 ml @ 1 mls/hr Q24H IV 10/04/24 18:15 Cancel Amino Acids 0 ml @ 0 mls/hr PER PHARMACY IV 10/05/24 14:30 UNV Meropenem 50 ml @ 17 mls/hr Q12HR IV 10/07/24 10:00 UNV Levalbuterol HCl 0.625 mg Q6HR NEB 10/13/24 12:00 12/02/24 18:09 0.625 MG Ipratropium [place] 0.5 mg Q6HR NEB 10/13/24 12:00 12/02/24 18:09 0.5 MG Morphine Sulfate 2 mg Q4HPRN PRN IV 10/21/24 11:30 11/10/24 05:15 2 MG Pantoprazole Sodium 50 ml @ 0 mls/hr Q0M IV 10/28/24 16:15 Cancel Sodium Chloride 10 ml QSHIFT@ IV 10/31/24 22:00 12/02/24 10:46 10 ML Acetaminophen/ Hydrocodone Bitart 1 tab Q4HPRN PRN PO 11/06/24 09:15 Labetalol HCl 10 mg Q2HPRN PRN IV 11/12/24 17:00 12/02/24 15:22 10 MG Clonidine HCl 0.1 mg Q7D TD 11/13/24 07:00 11/27/24 11:07 0.1 MG Lorazepam 1 mg Q4HP PRN IV 11/14/24 16:15 11/28/24 05:31 1 MG Albuterol 2.5 mg Q3HPRN PRN NEB 11/18/24 10:30 12/01/24 18:13 2.5 MG Lactulose 30 ml Q12HP PRN JT 11/24/24 09:00 11/27/24 14:18 30 ML Labetalol HCl 200 mg Q12HR GT 11/25/24 10:00 12/02/24 10:45 200 MG Nicotine 1 patch DAILY TD 11/26/24 10:00 12/02/24 10:47 1 PATCH Sucralfate 1 gm TID@0600,1130,2200 PO 11/27/24 09:15 12/02/24 14:09 1 GM Pantoprazole Sodium 40 mg BID IV 11/28/24 10:00 12/02/24 10:45 40 MG Enteral Nutritional Formula 240 ml TIDWM PO 11/28/24 12:00 12/02/24 14:11 240 ML Hydralazine HCl 50 mg Q12H PO 11/30/24 18:00 12/02/24 05:31 50 MG Nifedipine 120 mg DAILY PO 12/02/24 10:00 12/02/24 10:47 120 MG Multivitamins/ Minerals 1 tab DAILY PO 12/03/24 10:00 Amino Acid Protein 30 ml DAILY PO 12/03/24 08:00 laboratory and microbiology Laboratory Tests 12/02/24 05:00 Test 12/02/24 05:00 Range/Units Serum Glucose 89 74-106 mg/dL Assessment/Plan Impression Acute hypoxemic respiratory failure S/p tracheostomy Perforated viscus Septic shock Smoker Patient seen and examined in ANNIE Events S/p tracheostomy Size [address] No distress Labs and imaging reviewed ABG reviewed Management Supplemental oxygen as needed trache care per RT completed abx afebrile Bronchodilators Monitor renal function HD per nephrology Management deferred Monitor electrolytes Supplement as needed Nutritional support Continue ambulation F/u physical therapy DVT prophylaxis Dietary Evaluation Review Comments: 1. Continue TPN to meet at least 75% estimated needs 2. Continue current POC Expected Outcomes/Goals: FU 2-3 days to meet adequate energy & protein within 7 days of NPO Protein Calorie Malnutrition: Severe (rn) Plan discussed with: Patient CC Plasma Assessment Blood Product Administration S: [id number] VALENTE DEE MD Dec 02, 2024 18:16
--- NOTE | 2024-12-02 21:50 | DVHPN2 ---
Progress Note - Dictate Date Seen: Dec 02, 2024 Has the PT tested + for MRSA If YES, has PT been informed?: No Medical Necessity Reason Pt with a Central, PICC or Fol: Yes The following are medically ne: Central Line, Gómez Catheter Reason for gómez catheter: Strict I&O Subjective Patient is awake alert, patient wants to go home Patient is tolerating soft diet and nectar thickened fluid; he can swallow pills No active GI bleeding is reported although stool for occult blood was positive Cholecystostomy tube is draining bile vital signs Vital Sign Date Time Temp Pulse Resp B/P (MAP) Pulse Ox O2 Delivery O2 Flow Rate FiO2 12/02/24 21:32 107 155/81 12/02/24 20:00 23 97 12/02/24 18:09 Room Air 0.0 12/02/24 18:09 21 12/02/24 16:00 98.7 98.7 Total Intake and Output 12/01/24 12/01/24 12/02/24 15:00 23:00 07:00 Intake Total 960 ml 1200 ml 400 ml Output Total 610 ml 660 ml Balance 960 ml 590 ml -260 ml medications Current Medications Medications Dose Ordered Sig/Wally Route Start Time Stop Time Status Last Admin Dose Admin Ondansetron HCl 4 mg Q4HP PRN IV 10/04/24 11:45 Morphine Sulfate 2 mg Q4HPRN PRN IV 10/04/24 11:45 Cancel Morphine Sulfate 2 mg Q30M PRN IV 10/04/24 11:45 Cancel Lorazepam 50 mg/ Sodium Chloride 50 ml @ 1 mls/hr Q24H IV 10/04/24 18:15 Cancel Amino Acids 0 ml @ 0 mls/hr PER PHARMACY IV 10/05/24 14:30 UNV Meropenem 50 ml @ 17 mls/hr Q12HR IV 10/07/24 10:00 UNV Levalbuterol HCl 0.625 mg Q6HR NEB 10/13/24 12:00 12/02/24 18:09 0.625 MG Ipratropium [place] 0.5 mg Q6HR NEB 10/13/24 12:00 12/02/24 18:09 0.5 MG Morphine Sulfate 2 mg Q4HPRN PRN IV 10/21/24 11:30 11/10/24 05:15 2 MG Pantoprazole Sodium 50 ml @ 0 mls/hr Q0M IV 10/28/24 16:15 Cancel Sodium Chloride 10 ml QSHIFT@10,22 IV 10/31/24 22:00 12/02/24 21:33 10 ML Acetaminophen/ Hydrocodone Bitart 1 tab Q4HPRN PRN PO 11/06/24 09:15 Labetalol HCl 10 mg Q2HPRN PRN IV 11/12/24 17:00 12/02/24 15:22 10 MG Clonidine HCl 0.1 mg Q7D TD 11/13/24 07:00 11/27/24 11:07 0.1 MG Lorazepam 1 mg Q4HP PRN IV 11/14/24 16:15 11/28/24 05:31 1 MG Albuterol 2.5 mg Q3HPRN PRN NEB 11/18/24 10:30 12/01/24 18:13 2.5 MG Lactulose 30 ml Q12HP PRN JT 11/24/24 09:00 11/27/24 14:18 30 ML Labetalol HCl 200 mg Q12HR GT 11/25/24 10:00 12/02/24 21:32 200 MG Nicotine 1 patch DAILY TD 11/26/24 10:00 12/02/24 10:47 1 PATCH Sucralfate 1 gm TID@0600,1130,2200 PO 11/27/24 09:15 12/02/24 21:33 1 GM Pantoprazole Sodium 40 mg BID IV 11/28/24 10:00 12/02/24 21:32 40 MG Enteral Nutritional Formula 240 ml TIDWM PO 11/28/24 12:00 12/02/24 18:23 240 ML Hydralazine HCl 50 mg Q12H PO 11/30/24 18:00 12/02/24 18:23 50 MG Nifedipine 120 mg DAILY PO 12/02/24 10:00 12/02/24 10:47 120 MG Multivitamins/ Minerals 1 tab DAILY PO 12/03/24 10:00 Amino Acid Protein 30 ml DAILY PO 12/03/24 08:00 objective General Appearance: Alert, awake on trach collar HEENT: Atraumatic, PERRLA;Mild pallor, NG tube tolerating enteral tube feedings Lungs: Decreased breath sounds at bases) Cardiovascular: Regular rate, Normal S1, Normal S2, Abdomen: soft nontender well-healed midline scar without any drainage, hypoactive bowel sounds Cholecystostomy tube draining bile laboratory and microbiology Laboratory Tests 12/02/24 05:00 Test 12/02/24 05:00 Range/Units Serum Glucose 89 74-106 mg/dL Problems(with codes): (1) Elevated liver enzymes (2) Cholecystitis (3) TIA (transient ischemic attack) (4) Altered mental status (5) Severe anemia (6) Perforated viscus Prognosis Plan Protonix 40 mg IV q.12 hours and the patient will need to be maintained on oral PPI on discharge because of the peptic ulcer disease Carafate suspension 1 g p.o. 4 times a day DC aspirin NSAIDs smoking alcohol Outpatient follow up with GI Services to discuss elective panendoscopy Patient will likely need an elective cholecystectomy with removal biliary drain Consider IR re-evaluation to see if the cholecystostomy tube or drink could be clamped or internalized Dietary Evaluation Review Comments: 1. Continue TPN to meet at least 75% estimated needs 2. Continue current POC Expected Outcomes/Goals: FU 2-3 days to meet adequate energy & protein within 7 days of NPO Protein Calorie Malnutrition: Severe (rn) Plan discussed with: Patient, Other (ANNIE Nurse) CC Plasma Assessment Blood Product Administration S: [id number] GURJIT NOBLE MD Dec 02, 2024 21:50
[2024-12-03] VITALS (32 sets, daily range): BP systolic 131–161; BP diastolic 70–102; PULSE 70–103; RESP 20–34; TEMP 97.8–99; O2SAT 94–100
[2024-12-03 05:05] LABS: Hematocrit 26.7 % (41.0-53.0); Hemoglobin 8.6 g/dL (13.5-17.5); Mean Corpuscular Hemoglobin 28.1 pg (28.0-32.0); Mean Corpuscular Volume 86.8 fL (80.0-100.0); Nucleated Red Blood Cells % 0.0 %
[2024-12-03 05:25] LABS: Alanine Aminotransferase 27 U/L (7-40); Anion Gap 7 (5-15); BUN/Creatinine Ratio 16.4 (10.0-20.0); Blood Urea Nitrogen 20 mg/dL (9-23); Calcium 8.7 mg/dL (8.7-10.4); Carbon Dioxide 29 mmol/L (20-31); Chloride 99 mmol/L (98-107); Glucose 101 mg/dL (74-106); Potassium 4.4 mmol/L (3.5-5.1); Total Protein 6.8 g/dL (5.7-8.2)
[2024-12-03 05:26] LABS: Bilirubin, Total 0.6 mg/dL (0.2-1.0)
[2024-12-03 05:33] LABS: Albumin 3.2 g/dL (3.2-4.8); Alkaline Phosphatase 129 U/L (46-116); Sodium 135 mmol/L (136-145)
[2024-12-03] MEDS ORDERED: LACTULOSE 20Gm/30ML SOLN PO PRN (09:00)
[2024-12-03] MEDS: Pro-Stat SF 30ml Vanilla PO SCH (09:09)
--- NOTE | 2024-12-03 09:22 | DVHPN2 ---
Subjective Patient is alert following commands. Denies any symptoms. Reviewed: Care Plan, H&P, Labs, Medications, Previous Orders, Radiology, Other (Consultants) Changes from previous H/P or p: No Changes General: Per HPI Objective Vitals Vital Signs Date Time Temp Pulse Resp B/P (MAP) Pulse Ox O2 Delivery O2 Flow Rate FiO2 12/03/24 08:00 84 12/03/24 08:00 24 97 Room Air* 0 21 12/03/24 08:00 99.0 142/78 (99) 99.0 Intake/Output Intake and Output 12/03/24 07:00 Intake Total 2080 ml Output Total 1420 ml Balance 660 ml Intake Oral 2080 ml Output Urine Total 1200 ml Drainage Total 220 ml # Bowel Movements 2 General Appearance: Alert, Oriented X3, Cooperative, mild distress, Other HEENT: Atraumatic, PERRLA, Other (Tracheostomy, size five Shiley) Neck: Other (Tracheostomy) Lungs: Clear to auscultation, Normal air movement, Other Cardiovascular: Normal S1, Normal S2, Other Abdomen: Other Extremities: Normal pulses Neuro: Cranial nerves 3-12 NL, Other Skin: Dry, Intact, Wounds, Other Psych/Mental Status: Other Medications Current Medications Medications Dose Ordered Sig/Wally Route Start Time Stop Time Status Last Admin Dose Admin Ondansetron HCl 4 mg Q4HP PRN IV 10/04/24 11:45 Morphine Sulfate 2 mg Q4HPRN PRN IV 10/04/24 11:45 Cancel Morphine Sulfate 2 mg Q30M PRN IV 10/04/24 11:45 Cancel Lorazepam 50 mg/ Sodium Chloride 50 ml @ 1 mls/hr Q24H IV 10/04/24 18:15 Cancel Amino Acids 0 ml @ 0 mls/hr PER PHARMACY IV 10/05/24 14:30 UNV Meropenem 50 ml @ 17 mls/hr Q12HR IV 10/07/24 10:00 UNV Levalbuterol HCl 0.625 mg Q6HR NEB 10/13/24 12:00 12/03/24 05:22 0.625 MG Ipratropium [place] 0.5 mg Q6HR NEB 10/13/24 12:00 12/03/24 05:22 0.5 MG Morphine Sulfate 2 mg Q4HPRN PRN IV 10/21/24 11:30 11/10/24 05:15 2 MG Pantoprazole Sodium 50 ml @ 0 mls/hr Q0M IV 10/28/24 16:15 Cancel Sodium Chloride 10 ml QSHIFT@10,22 IV 10/31/24 22:00 12/02/24 21:33 10 ML Acetaminophen/ Hydrocodone Bitart 1 tab Q4HPRN PRN PO 11/06/24 09:15 Labetalol HCl 10 mg Q2HPRN PRN IV 11/12/24 17:00 12/02/24 15:22 10 MG Clonidine HCl 0.1 mg Q7D TD 11/13/24 07:00 11/27/24 11:07 0.1 MG Lorazepam 1 mg Q4HP PRN IV 11/14/24 16:15 11/28/24 05:31 1 MG Albuterol 2.5 mg Q3HPRN PRN NEB 11/18/24 10:30 12/01/24 18:13 2.5 MG Nicotine 1 patch DAILY TD 11/26/24 10:00 12/02/24 10:47 1 PATCH Sucralfate 1 gm TID@0600,1130,2200 PO 11/27/24 09:15 12/03/24 05:36 1 GM Pantoprazole Sodium 40 mg BID IV 11/28/24 10:00 12/02/24 21:32 40 MG Enteral Nutritional Formula 240 ml TIDWM PO 11/28/24 12:00 12/03/24 09:09 240 ML Hydralazine HCl 50 mg Q12H PO 11/30/24 18:00 12/03/24 05:37 50 MG Nifedipine 120 mg DAILY PO 12/02/24 10:00 12/02/24 10:47 120 MG Multivitamins/ Minerals 1 tab DAILY PO 12/03/24 10:00 Amino Acid Protein 30 ml DAILY PO 12/03/24 08:00 12/03/24 09:09 30 ML Labetalol HCl 200 mg Q12HR PO 12/03/24 10:00 Lactulose 30 ml Q12HP PRN PO 12/03/24 09:00 Laboratory Results Laboratory Tests 12/03/24 04:50 Chemistry Test 12/03/24 04:50 Albumin 3.2 g/dL (3.2-4.8) Calcium Level 8.7 mg/dL (8.7-10.4) Total Protein 6.8 g/dL (5.7-8.2) LFT Test 12/03/24 04:50 Alanine Aminotransferase (ALT) 27 U/L (7-40) Alkaline Phosphatase 129 U/L (46-116) H Aspartate Amino Transferase (AST) 23 U/L (13-40) Total Bilirubin 0.6 mg/dL (0.2-1.0) Urinalysis Test 10/05/24 15:05 10/26/24 20:33 11/07/24 12:40 Urine Mucus Few (None Seen) Urine Color Light-yellow (Yellow) Urine Clarity Clear (Clear) Urine pH 7.0 (5.0-9.0) Urine Specific [place] 1.014 (1.001-1.035) Urine Protein 1+ (Negative) H Urine Ketones Negative (Negative) Urine Blood 1+ /uL (Negative) H Urine Nitrite Negative (Negative) Urine Bilirubin Negative (Negative) Urine Urobilinogen Normal mg/dL (Negative) Urine Leukocyte Esterase Negative /uL (Negative) Urine RBC 1 /hpf (0 - 3) Urine Microscopic WBC 3 /HPF (0-3) Urine Squamous Epithelial Cells None seen /hpf (<5) Urine Bacteria Few /hpf (None Seen) H Urine Glucose Normal mg/dL (Normal) Urine Creatinine 64.63 mg/dL (30.0-125.0) Urine Protein/Creatinine Ratio 3.11 Urine Sodium 34 mmol/L (40-220) L Urine Total Protein 200.7 mg/dL (1-14) H Microbiology Microbiology Date/Time Source Procedure Growth Status 11/20/24 09:56 Sputum Gram Stain - Final Complete 11/20/24 09:56 Sputum Respiratory Culture - Final Complete 11/20/24 08:16 Blood Blood Culture - Final NO GROWTH AFTER 5 DAYS OF INCUBATION. Complete 11/10/24 22:44 Voided Urine Urine Culture - Final Complete 10/18/24 09:21 Pleural Fluid Gram Stain - Final Complete 10/18/24 09:21 Pleural Fluid Body Fluid Culture - Final Complete 10/04/24 17:10 Nose MRSA Screen - Final Complete Labs and/or images reviewed: Labs reviewed by me, Image(s) reviewed by me Assessment/Plan Assessment/Plan Impression: -severe septic shock -pneumoperitoneum secondary to perforated gastric ulcer -acute kidney injury, hemodynamically mediated, probable VMN -acute hypoxic respiratory failure -shock liver -nicotine dependence -history of CVA -right upper extremity DVT -multifocal pneumonia, probable Gram-positive/Gram-negative etiology -anemia secondary to nutrition, renal failure -bilateral pleural effusions -small left pneumothorax -Failure of ventilator weaning, status post tracheostomy -fungemia Plan: Events: No events overnight. Catheter still in. DC Barrios catheter. -antihypertensive regimen: DC [place] patch -continue Protonix 40 mg b.i.d. -possible downsizing of tracheostomy by fund accounting manager. Have size four Shiley available -physical therapy, out of bed as tolerated -repeat labs in am Total time spent with patient discussing and formulating plan of care: 35 minutes. This medical document was created using an electronic medical record system with [employer] dictation system. Although this document has been carefully reviewed, there may still be some phonetic and typographical errors. These areas are purely typographical due to imperfections of the software programs, and do not reflect any compromise in the patient's medical care. Plan discussed with: Patient, Other (RN) My Orders Orders - CHEYENNE PIKE NP Procedure Category Date Status Time Regular Diet DIET 12/02/24 Transmitted Lunch Multiple Vitamin W PHA 12/03/24 In Process Mineral Tab (Mvi W/ M 10:00 Amino Acids-Protein PHA 12/03/24 In Process Hydrolysat (Pro-Stat 08:00 Labetalol Hcl Tablet PHA 12/03/24 In Process (Normodyne Tablet) 10:00 Lactulose Oral PHA 12/03/24 In Process 09:00 Respiratory Misc. RT 12/03/24 Verified Order 09:12 D/C Barrios CINTHIA 12/03/24 Verified 09:12 Date of Service: Dec 03, 2024 Billing Provider: CHEYENNE PIKE NP Common Visit Codes: [id number] INP/OBS CARE(HIGH) CHEYENNE PIKE NP Dec 03, 2024 09:22
[2024-12-03] MEDS: MULTIPLE VITAMINS W/ MINERALS TAB PO SCH (09:36)
[2024-12-03] MEDS: LABETALOL HCL 200 MG TAB PO SCH (09:37)
--- NOTE | 2024-12-03 16:37 | DVHPN2 ---
Progress Note - Dictate Date Seen: Dec 03, 2024 Has the PT tested + for MRSA If YES, has PT been informed?: No Medical Necessity Reason Pt with a Central, PICC or Fol: Yes The following are medically ne: Central Line, Gómez Catheter Reason for gómez catheter: Strict I&O Subjective Patient is awake alert, patient wants to go home Patient is tolerating soft diet and nectar thickened fluid; he can swallow pills No active GI bleeding is reported although stool for occult blood was positive Cholecystostomy tube is draining bile IR clamped his cholecystostomy drain tube today vital signs Vital Sign Date Time Temp Pulse Resp B/P (MAP) Pulse Ox O2 Delivery O2 Flow Rate FiO2 12/03/24 16:00 98.9 75 22 153/81 (105) 96 98.9 12/03/24 16:00 Room Air* 0 21 Total Intake and Output 12/02/24 12/02/24 12/03/24 15:00 23:00 07:00 Intake Total 1070 ml 710 ml 300 ml Output Total 845 ml 575 ml Balance 1070 ml -135 ml -275 ml medications Current Medications Medications Dose Ordered Sig/Wally Route Start Time Stop Time Status Last Admin Dose Admin Ondansetron HCl 4 mg Q4HP PRN IV 10/04/24 11:45 Morphine Sulfate 2 mg Q4HPRN PRN IV 10/04/24 11:45 Cancel Morphine Sulfate 2 mg Q30M PRN IV 10/04/24 11:45 Cancel Lorazepam 50 mg/ Sodium Chloride 50 ml @ 1 mls/hr Q24H IV 10/04/24 18:15 Cancel Amino Acids 0 ml @ 0 mls/hr PER PHARMACY IV 10/05/24 14:30 UNV Meropenem 50 ml @ 17 mls/hr Q12HR IV 10/07/24 10:00 UNV Levalbuterol HCl 0.625 mg Q6HR NEB 10/13/24 12:00 12/03/24 11:16 0.625 MG Ipratropium [place] 0.5 mg Q6HR NEB 10/13/24 12:00 12/03/24 11:16 0.5 MG Morphine Sulfate 2 mg Q4HPRN PRN IV 10/21/24 11:30 11/10/24 05:15 2 MG Pantoprazole Sodium 50 ml @ 0 mls/hr Q0M IV 10/28/24 16:15 Cancel Sodium Chloride 10 ml QSHIFT@10,22 IV 10/31/24 22:00 12/03/24 09:36 10 ML Acetaminophen/ Hydrocodone Bitart 1 tab Q4HPRN PRN PO 11/06/24 09:15 Labetalol HCl 10 mg Q2HPRN PRN IV 11/12/24 17:00 12/02/24 15:22 10 MG Lorazepam 1 mg Q4HP PRN IV 11/14/24 16:15 11/28/24 05:31 1 MG Albuterol 2.5 mg Q3HPRN PRN NEB 11/18/24 10:30 12/01/24 18:13 2.5 MG Nicotine 1 patch DAILY TD 11/26/24 10:00 12/03/24 09:36 1 PATCH Sucralfate 1 gm TID@0600,1130,2200 PO 11/27/24 09:15 12/03/24 11:58 1 GM Pantoprazole Sodium 40 mg BID IV 11/28/24 10:00 12/03/24 09:36 40 MG Enteral Nutritional Formula 240 ml TIDWM PO 11/28/24 12:00 12/03/24 12:11 240 ML Hydralazine HCl 50 mg Q12H PO 11/30/24 18:00 12/03/24 05:37 50 MG Nifedipine 120 mg DAILY PO 12/02/24 10:00 12/03/24 09:37 120 MG Multivitamins/ Minerals 1 tab DAILY PO 12/03/24 10:00 12/03/24 09:36 1 TAB Amino Acid Protein 30 ml DAILY PO 12/03/24 08:00 12/03/24 09:09 30 ML Labetalol HCl 200 mg Q12HR PO 12/03/24 10:00 12/03/24 09:37 200 MG Lactulose 30 ml Q12HP PRN PO 12/03/24 09:00 objective General Appearance: Alert, awake on trach collar HEENT: Atraumatic, PERRLA;Mild pallor, NG tube tolerating enteral tube feedings Lungs: Decreased breath sounds at bases) Cardiovascular: Regular rate, Normal S1, Normal S2, Abdomen: soft nontender well-healed midline scar without any drainage, hypoactive bowel sounds Cholecystostomy tube draining bile laboratory and microbiology Laboratory Tests 12/03/24 04:50 Test 12/03/24 04:50 Range/Units Serum Glucose 101 74-106 mg/dL Problems(with codes): (1) Elevated liver enzymes (2) Cholecystitis (3) TIA (transient ischemic attack) (4) Troponin level elevated (5) NSTEMI (non-ST elevated myocardial infarction) Prognosis Plan Check repeat labs including CMP in a.m. Monitor for any side effects after clamping the cholecystostomy tube If the patient's liver enzymes start to rise then we can unclamp the cholecystostomy tube in the next 1-2 days Attempt a decrease in the tracheal size Continue PT Dietary Evaluation Review Comments: 1. Continue TPN to meet at least 75% estimated needs 2. Continue current POC Expected Outcomes/Goals: FU 2-3 days to meet adequate energy & protein within 7 days of NPO Protein Calorie Malnutrition: Severe (rn) Plan discussed with: Patient, Other (ANNIE Nurse) CC Plasma Assessment Blood Product Administration S: [id number] GURJIT NOBLE MD Dec 03, 2024 16:37
--- NOTE | 2024-12-03 21:11 | DVHPN2 ---
Progress Note - Dictate Date Seen: Dec 03, 2024 Has the PT tested + for MRSA If YES, has PT been informed?: No Medical Necessity Reason Pt with a Central, PICC or Fol: Yes The following are medically ne: Central Line, Gómez Catheter Reason for gómez catheter: Strict I&O vital signs Vital Sign Date Time Temp Pulse Resp B/P (MAP) Pulse Ox O2 Delivery O2 Flow Rate FiO2 12/03/24 20:00 98.4 101 22 137/74 (95) 96 98.4 12/03/24 20:00 Room Air* 0 21 Total Intake and Output 12/02/24 12/02/24 12/03/24 15:00 23:00 07:00 Intake Total 1070 ml 710 ml 300 ml Output Total 845 ml 575 ml Balance 1070 ml -135 ml -275 ml medications Current Medications Medications Dose Ordered Sig/Wally Route Start Time Stop Time Status Last Admin Dose Admin Ondansetron HCl 4 mg Q4HP PRN IV 10/04/24 11:45 Morphine Sulfate 2 mg Q4HPRN PRN IV 10/04/24 11:45 Cancel Morphine Sulfate 2 mg Q30M PRN IV 10/04/24 11:45 Cancel Lorazepam 50 mg/ Sodium Chloride 50 ml @ 1 mls/hr Q24H IV 10/04/24 18:15 Cancel Amino Acids 0 ml @ 0 mls/hr PER PHARMACY IV 10/05/24 14:30 UNV Meropenem 50 ml @ 17 mls/hr Q12HR IV 10/07/24 10:00 UNV Levalbuterol HCl 0.625 mg Q6HR NEB 10/13/24 12:00 12/03/24 18:14 0.625 MG Ipratropium [place] 0.5 mg Q6HR NEB 10/13/24 12:00 12/03/24 18:14 0.5 MG Morphine Sulfate 2 mg Q4HPRN PRN IV 10/21/24 11:30 11/10/24 05:15 2 MG Pantoprazole Sodium 50 ml @ 0 mls/hr Q0M IV 10/28/24 16:15 Cancel Sodium Chloride 10 ml QSHIFT@10,22 IV 10/31/24 22:00 12/03/24 09:36 10 ML Acetaminophen/ Hydrocodone Bitart 1 tab Q4HPRN PRN PO 6/19/25 09:15 Labetalol HCl 10 mg Q2HPRN PRN IV 11/12/24 17:00 12/02/24 15:22 10 MG Lorazepam 1 mg Q4HP PRN IV 11/14/24 16:15 11/28/24 05:31 1 MG Albuterol 2.5 mg Q3HPRN PRN NEB 11/18/24 10:30 12/01/24 18:13 2.5 MG Nicotine 1 patch DAILY TD 11/26/24 10:00 12/03/24 09:36 1 PATCH Sucralfate 1 gm TID@0600,1130,2200 PO 11/27/24 09:15 12/03/24 11:58 1 GM Pantoprazole Sodium 40 mg BID IV 11/28/24 10:00 12/03/24 09:36 40 MG Enteral Nutritional Formula 240 ml TIDWM PO 11/28/24 12:00 12/03/24 18:28 240 ML Hydralazine HCl 50 mg Q12H PO 11/30/24 18:00 12/03/24 18:03 50 MG Nifedipine 120 mg DAILY PO 12/02/24 10:00 12/03/24 09:37 120 MG Multivitamins/ Minerals 1 tab DAILY PO 12/03/24 10:00 12/03/24 09:36 1 TAB Amino Acid Protein 30 ml DAILY PO 12/03/24 08:00 12/03/24 09:09 30 ML Labetalol HCl 200 mg Q12HR PO 12/03/24 10:00 12/03/24 09:37 200 MG Lactulose 30 ml Q12HP PRN PO 12/03/24 09:00 laboratory and microbiology Laboratory Tests 12/03/24 04:50 Test 12/03/24 04:50 Range/Units Serum Glucose 101 74-106 mg/dL Assessment/Plan Impression Acute hypoxemic respiratory failure S/p tracheostomy Perforated viscus Septic shock Smoker Patient seen and examined in ANNIE Events S/p tracheostomy tracheotomy tube downsized to 4Shiley (6.5) No distress Labs and imaging reviewed ABG reviewed Management Supplemental oxygen as needed trache care per RT completed abx afebrile Bronchodilators Monitor renal function HD per nephrology Management deferred Monitor electrolytes Supplement as needed Nutritional support Continue ambulation F/u physical therapy DVT prophylaxis ok to dc from pulm standpoint f/up with pulm clinic Dietary Evaluation Review Comments: 1. Continue TPN to meet at least 75% estimated needs 2. Continue current POC Expected Outcomes/Goals: FU 2-3 days to meet adequate energy & protein within 7 days of NPO Protein Calorie Malnutrition: Severe (rn) Plan discussed with: Patient CC Plasma Assessment Blood Product Administration S: [id number] VALENTE DEE MD Dec 03, 2024 21:11
[2024-12-04] VITALS (31 sets, daily range): BP systolic 130–165; BP diastolic 72–91; PULSE 74–96; RESP 18–32; TEMP 98–98.7; O2SAT 95–100
[2024-12-04 06:16] LABS: Hematocrit 26.7 % (41.0-53.0); Hemoglobin 8.7 g/dL (13.5-17.5); Mean Corpuscular Hemoglobin 28.1 pg (28.0-32.0); Mean Corpuscular Volume 86.4 fL (80.0-100.0); Nucleated Red Blood Cells % 0.0 %
[2024-12-04 06:25] LABS: Alanine Aminotransferase 24 U/L (7-40); Albumin 3.4 g/dL (3.2-4.8); Anion Gap 7 (5-15); BUN/Creatinine Ratio 17.4 (10.0-20.0); Blood Urea Nitrogen 20 mg/dL (9-23); Calcium 9.5 mg/dL (8.7-10.4); Carbon Dioxide 28 mmol/L (20-31); Chloride 99 mmol/L (98-107); Potassium 4.1 mmol/L (3.5-5.1); Total Protein 7.1 g/dL (5.7-8.2)
[2024-12-04 06:26] LABS: Bilirubin, Total 0.5 mg/dL (0.2-1.0)
[2024-12-04 06:29] LABS: Alkaline Phosphatase 120 U/L (46-116); Sodium 134 mmol/L (136-145)
[2024-12-04 07:02] LABS: Glucose 86 mg/dL (74-106)
--- NOTE | 2024-12-04 08:59 | DVHPN2 ---
Subjective Patient is alert following commands. Denies any symptoms. Reviewed: Care Plan, H&P, Labs, Medications, Previous Orders, Radiology, Other (Consultants) Changes from previous H/P or p: No Changes General: Per HPI Objective Vitals Vital Signs Date Time Temp Pulse Resp B/P (MAP) Pulse Ox O2 Delivery O2 Flow Rate FiO2 12/04/24 08:00 24 96 Room Air* 0 21 12/04/24 08:00 88 12/04/24 08:00 98.1 143/81 (101) 98.1 Intake/Output Intake and Output 12/04/24 07:00 Intake Total 1400 ml Output Total 1020 ml Balance 380 ml Intake Oral 1400 ml Output Urine Total 950 ml Drainage Total 70 ml # Voids 1 General Appearance: Alert, Oriented X3, Cooperative, mild distress, Other HEENT: Atraumatic, PERRLA, Other (Tracheostomy, size five Shiley) Neck: Other (Tracheostomy) Lungs: Clear to auscultation, Normal air movement, Other Cardiovascular: Normal S1, Normal S2, Other Abdomen: Other Extremities: Normal pulses Neuro: Cranial nerves 3-12 NL, Other Skin: Dry, Intact, Wounds, Other Psych/Mental Status: Other Medications Current Medications Medications Dose Ordered Sig/Wally Route Start Time Stop Time Status Last Admin Dose Admin Ondansetron HCl 4 mg Q4HP PRN IV 10/04/24 11:45 Morphine Sulfate 2 mg Q4HPRN PRN IV 10/04/24 11:45 Cancel Morphine Sulfate 2 mg Q30M PRN IV 10/04/24 11:45 Cancel Lorazepam 50 mg/ Sodium Chloride 50 ml @ 1 mls/hr Q24H IV 10/04/24 18:15 Cancel Amino Acids 0 ml @ 0 mls/hr PER PHARMACY IV 10/05/24 14:30 UNV Meropenem 50 ml @ 17 mls/hr Q12HR IV 10/07/24 10:00 UNV Levalbuterol HCl 0.625 mg Q6HR NEB 10/13/24 12:00 12/04/24 06:44 0.625 MG Ipratropium [place] 0.5 mg Q6HR NEB 10/13/24 12:00 12/04/24 06:44 0.5 MG Morphine Sulfate 2 mg Q4HPRN PRN IV 10/21/24 11:30 11/10/24 05:15 2 MG Pantoprazole Sodium 50 ml @ 0 mls/hr Q0M IV 10/28/24 16:15 Cancel Sodium Chloride 10 ml QSHIFT@10,22 IV 10/31/24 22:00 12/03/24 21:41 10 ML Acetaminophen/ Hydrocodone Bitart 1 tab Q4HPRN PRN PO 11/06/24 09:15 Labetalol HCl 10 mg Q2HPRN PRN IV 11/12/24 17:00 12/02/24 15:22 10 MG Lorazepam 1 mg Q4HP PRN IV 11/14/24 16:15 11/28/24 05:31 1 MG Albuterol 2.5 mg Q3HPRN PRN NEB 11/18/24 10:30 12/01/24 18:13 2.5 MG Nicotine 1 patch DAILY TD 11/26/24 10:00 12/03/24 09:36 1 PATCH Sucralfate 1 gm TID@0600,1130,2200 PO 11/27/24 09:15 12/04/24 06:05 1 GM Pantoprazole Sodium 40 mg BID IV 11/28/24 10:00 12/03/24 21:41 40 MG Enteral Nutritional Formula 240 ml TIDWM PO 11/28/24 12:00 12/04/24 08:55 240 ML Hydralazine HCl 50 mg Q12H PO 11/30/24 18:00 12/04/24 06:05 50 MG Nifedipine 120 mg DAILY PO 12/02/24 10:00 12/03/24 09:37 120 MG Multivitamins/ Minerals 1 tab DAILY PO 12/03/24 10:00 12/03/24 09:36 1 TAB Amino Acid Protein 30 ml DAILY PO 12/03/24 08:00 12/03/24 09:09 30 ML Labetalol HCl 200 mg Q12HR PO 12/03/24 10:00 12/03/24 21:42 200 MG Lactulose 30 ml Q12HP PRN PO 12/03/24 09:00 Laboratory Results Laboratory Tests 12/04/24 04:20 Chemistry Test 12/04/24 04:20 Albumin 3.4 g/dL (3.2-4.8) Calcium Level 9.5 mg/dL (8.7-10.4) Total Protein 7.1 g/dL (5.7-8.2) LFT Test 12/04/24 04:20 Alanine Aminotransferase (ALT) 24 U/L (7-40) Alkaline Phosphatase 120 U/L (46-116) H Aspartate Amino Transferase (AST) 24 U/L (13-40) Total Bilirubin 0.5 mg/dL (0.2-1.0) Urinalysis Test 10/05/24 15:05 10/26/24 20:33 11/07/24 12:40 Urine Mucus Few (None Seen) Urine Color Light-yellow (Yellow) Urine Clarity Clear (Clear) Urine pH 7.0 (5.0-9.0) Urine Specific [place] 1.014 (1.001-1.035) Urine Protein 1+ (Negative) H Urine Ketones Negative (Negative) Urine Blood 1+ /uL (Negative) H Urine Nitrite Negative (Negative) Urine Bilirubin Negative (Negative) Urine Urobilinogen Normal mg/dL (Negative) Urine Leukocyte Esterase Negative /uL (Negative) Urine RBC 1 /hpf (0 - 3) Urine Microscopic WBC 3 /HPF (0-3) Urine Squamous Epithelial Cells None seen /hpf (<5) Urine Bacteria Few /hpf (None Seen) H Urine Glucose Normal mg/dL (Normal) Urine Creatinine 64.63 mg/dL (30.0-125.0) Urine Protein/Creatinine Ratio 3.11 Urine Sodium 34 mmol/L (40-220) L Urine Total Protein 200.7 mg/dL (1-14) H Microbiology Microbiology Date/Time Source Procedure Growth Status 11/20/24 09:56 Sputum Gram Stain - Final Complete 11/20/24 09:56 Sputum Respiratory Culture - Final Complete 11/20/24 08:16 Blood Blood Culture - Final NO GROWTH AFTER 5 DAYS OF INCUBATION. Complete 11/10/24 22:44 Voided Urine Urine Culture - Final Complete 10/18/24 09:21 Pleural Fluid Gram Stain - Final Complete 10/18/24 09:21 Pleural Fluid Body Fluid Culture - Final Complete 10/04/24 17:10 Nose MRSA Screen - Final Complete Labs and/or images reviewed: Labs reviewed by me, Image(s) reviewed by me Assessment/Plan Assessment/Plan Impression: -severe septic shock -pneumoperitoneum secondary to perforated gastric ulcer -acute kidney injury, hemodynamically mediated, probable VMN -acute hypoxic respiratory failure -shock liver -nicotine dependence -history of CVA -right upper extremity DVT -multifocal pneumonia, probable Gram-positive/Gram-negative etiology -anemia secondary to nutrition, renal failure -bilateral pleural effusions -small left pneumothorax -Failure of ventilator weaning, status post tracheostomy -fungemia Plan: Events: No events overnight. Barrios catheter removed. Tracheostomy downsized to a size four. Persistent bilious drainage from cholecystostomy tube. Ambulating approximately 4 ft. -antihypertensive regimen: Continue -continue Protonix 40 mg b.i.d. -physical therapy, out of bed as tolerated -repeat labs in am Total time spent with patient discussing and formulating plan of care: 35 minutes. This medical document was created using an electronic medical record system with [employer] dictation system. Although this document has been carefully reviewed, there may still be some phonetic and typographical errors. These areas are purely typographical due to imperfections of the software programs, and do not reflect any compromise in the patient's medical care. Plan discussed with: Patient, Other (RN) My Orders Orders - CHEYENNE PIKE NP Procedure Category Date Status Time Labetalol Hcl Tablet PHA 12/03/24 In Process (Normodyne Tablet) 10:00 Lactulose Oral PHA 12/03/24 In Process 09:00 Respiratory Misc. RT 12/03/24 Transmitted Order 09:12 D/C Barrios CINTHIA 12/03/24 In Process 09:12 Date of Service: Dec 04, 2024 Billing Provider: CHEYENNE PIKE NP Common Visit Codes: [id number] INP/OBS CARE(HIGH) CHEYENNE PIKE NP Dec 04, 2024 08:59
--- NOTE | 2024-12-04 10:38 | DVHPN2 ---
Progress Note - Dictate Date Seen: Dec 04, 2024 Has the PT tested + for MRSA If YES, has PT been informed?: No Medical Necessity Reason Pt with a Central, PICC or Fol: Yes The following are medically ne: Central Line, Gómez Catheter Reason for gómez catheter: Strict I&O Subjective Mr. Perez is a 48 years old right-handed gentleman with a history of hypertension, dyslipidemia, multiple strokes, he was brought to the [facility] on 10/04/2024 with a chief company of recurrent syncope, in the hospital, the patient was found to have perforated viscus, and he went through surgical treatment, he was hospital course has been complicated with sepsis, septic shock, pneumonia, right upper extremity DVT. I saw him on 08/23/2023 for TIA I have seen and examined the patient, discussed with his nurse. He is oriented x3, he was able to walk 40 ft on 12/03/2024 No new complaints He wants to go home Blood culture, Urinalysis, 08/22/2023: Unremarkable UDS, 08/22/2023: Negative WBC/Hb/PLT'/MCV, 08/22/2023: 10.8/13.1/184/87.4, 10/28/2024: 15/8/487/89.3 10/31/2024: 24.3/9.1/77/88.4 Troponin 1 high-sensitivity, 08/22/2023: 336, 273/300 BUNs/CR, 08/22/2023: 15/1.45 10/31/2024: Two 9/2.42 GFR, 08/22/2023: 59 Liver function test, 10/04/2024: Unremarkable TBI/AST/ALT/AP, 10/04/2024: 0.6/410/335/31, 10/05/2024: 1.3/582/423/39, 10/31/2024: 3.6/54/98/117 TG/CHO L/LDL/HDL, 08/2023: 136/166/111/39 TSH, 08/23/2023: 4.25 Extremity venous study, right arm, 11/09/2024: Thrombus is seen in the cephalic vein in the forearm. DONAL, 08/23/2023: 1. No evidence of intracardiac source of embolus in the study conducted today. 2. Normal valves without significant masses or change vegetations were discernible. 3. No evidence of intra-atrial shunting by bubble study and color Doppler. 4. Mild atherosclerotic plaquing was visualized in the arch of the aorta without evidence of dissection in the visualized part CT head, 10/24/2024: 1. No intracranial hemorrhage or mass effect. 2. Nabu-hy-xbupezir chronic microvascular ischemic changes. 3. Old bilateral basal ganglia lacunar infarcts. 4. Small bilateral mastoid effusions. CT abdomen/pelvis, 10/04/2024: 1. Extensive intra-abdominal free air concerning for perforated viscus. Surgical consultation is recommended. 2. Enteritis is seen in multiple loops of small bowel in the left hemiabdomen. 3. Moderate abdominopelvic ascites. 4. Small right pleural effusion. CTA neck, head, 08/22/2023:1. CTA head demonstrates no evidence of large vessel occlusion, aneurysm, or significant stenosis. 2. CTA neck demonstrates no evidence of carotid or vertebral dissection or significant stenosis. 3. No noncontrast CT head was performed. 4. Additional findings as detailed above MRI head, 08/23/2023: No acute infarct, intracranial hemorrhage, mass effect, or hydrocephalus. Moderate periventricular and deep subcortical white matter T2 hyperintensities which are nonspecific, but most likely related to sequela of chronic microvascular ischemic changes (I have reviewed the MRI films with our in-house radiologist, Dr. Black, the patient has bilateral multiple subacute/chronic infarcts) MRI head, 11/01/2024: No acute cerebrovascular ischemia. Diqa-ox-rdrorniy chronic microvascular ischemic changes. Bilateral mastoid effusions. Old bilateral basal ganglia / lopes radiata infarcts. vital signs Vital Sign Date Time Temp Pulse Resp B/P (MAP) Pulse Ox O2 Delivery O2 Flow Rate FiO2 12/04/24 10:00 24 96 Room Air* 0 21 12/04/24 10:00 89 12/04/24 09:50 153/85 12/04/24 08:00 98.1 98.1 Total Intake and Output 12/03/24 12/03/24 12/04/24 15:00 23:00 07:00 Intake Total 350 ml 600 ml 450 ml Output Total 770 ml 250 ml Balance 350 ml -170 ml 200 ml medications Current Medications Medications Dose Ordered Sig/Wally Route Start Time Stop Time Status Last Admin Dose Admin Ondansetron HCl 4 mg Q4HP PRN IV 10/04/24 11:45 Morphine Sulfate 2 mg Q4HPRN PRN IV 10/04/24 11:45 Cancel Morphine Sulfate 2 mg Q30M PRN IV 10/04/24 11:45 Cancel Lorazepam 50 mg/ Sodium Chloride 50 ml @ 1 mls/hr Q24H IV 10/04/24 18:15 Cancel Amino Acids 0 ml @ 0 mls/hr PER PHARMACY IV 10/05/24 14:30 UNV Meropenem 50 ml @ 17 mls/hr Q12HR IV 10/07/24 10:00 UNV Levalbuterol HCl 0.625 mg Q6HR NEB 10/13/24 12:00 12/04/24 06:44 0.625 MG Ipratropium [place] 0.5 mg Q6HR NEB 10/13/24 12:00 12/04/24 06:44 0.5 MG Morphine Sulfate 2 mg Q4HPRN PRN IV 10/21/24 11:30 11/10/24 05:15 2 MG Pantoprazole Sodium 50 ml @ 0 mls/hr Q0M IV 10/28/24 16:15 Cancel Sodium Chloride 10 ml QSHIFT@10,22 IV 10/31/24 22:00 12/04/24 09:49 10 ML Acetaminophen/ Hydrocodone Bitart 1 tab Q4HPRN PRN PO 11/06/24 09:15 Labetalol HCl 10 mg Q2HPRN PRN IV 11/12/24 17:00 12/02/24 15:22 10 MG Lorazepam 1 mg Q4HP PRN IV 11/14/24 16:15 11/28/24 05:31 1 MG Albuterol 2.5 mg Q3HPRN PRN NEB 11/18/24 10:30 12/01/24 18:13 2.5 MG Nicotine 1 patch DAILY TD 11/26/24 10:00 12/04/24 09:51 1 PATCH Sucralfate 1 gm TID@0600,1130,2200 PO 11/27/24 09:15 12/04/24 06:05 1 GM Pantoprazole Sodium 40 mg BID IV 11/28/24 10:00 12/04/24 09:49 40 MG Enteral Nutritional Formula 240 ml TIDWM PO 11/28/24 12:00 12/04/24 08:55 240 ML Hydralazine HCl 50 mg Q12H PO 11/30/24 18:00 12/04/24 06:05 50 MG Nifedipine 120 mg DAILY PO 12/02/24 10:00 12/04/24 09:50 120 MG Multivitamins/ Minerals 1 tab DAILY PO 12/03/24 10:00 12/04/24 09:49 1 TAB Amino Acid Protein 30 ml DAILY PO 12/03/24 08:00 12/04/24 10:07 30 ML Labetalol HCl 200 mg Q12HR PO 12/03/24 10:00 12/04/24 09:49 200 MG Lactulose 30 ml Q12HP PRN PO 12/03/24 09:00 objective General: the patient is well developed and nourished. No acute distress. MENTAL STATUS: Subjective SPEECH, LANGUAGE, HIGHER CORTICAL FUNCTION: He does not vocalize/status post tracheostomy. CRANIAL NERVES:Intact visual ansari to confrontation (visual thread). Pupils are equal, round and reactive. EOMs full and conjugate. Mandibular strength intact. Facial muscles symmetrical and strength intact. SENSATION: Sensation to touch and pinprick is unremarkable MOTOR: Normal muscle bulk. No fasciculations. No abnormal movements or posturing. Muscle power in the extremities: 4-5/5, right side stronger5 REFLEXES: Deep tendon reflexes are increased bilaterally, stronger in the left knee. No pathological reflexes. CEREBELLAR/COORDINATION: Deferred GAIT/STATION: deferred laboratory and microbiology Laboratory Tests 12/04/24 04:20 Test 12/04/24 04:20 Range/Units Serum Glucose 86 74-106 mg/dL Problem List Altered mental status Metabolic encephalopathy secondary to sepsis, septic shock, pneumonia Hypoxic encephalopathy Viscus perforation status post surgical repair GI bleeding Anemia Fever/ Sepsis/septic shock Respiratory failure S/P tracheostomy Multiple strokes Secondary to history methamphetamine, cocaine, alcohol use History of alcohol abuse History of cocaine, methamphetamine abuse Hyperreflexia secondary to multiple strokes Right upper extremity DVT ICU myopathy Assessment/Plan Monitoring Supportive treatment ANNIE care Stabilize vitals, PRN Respiratory suppor PRN Follow-up labs IV antibiotics Protonix TPN Quit tobacco smoking No more alcohol, street drug abuse Stroke risk factors discussed Up to chair Physical therapy GI on case Infectious disease on case Pulmonology on case Hematology on case Nephrology on case More recommended per clinical course This medical document was created using an electronic medical record system with [employer] dictation system. Although this document has been carefully reviewed, there may still be some phonetic and typographical errors. These areas are purely typographical due to imperfections of the software programs, and do not reflect any compromise in the patient's medical care. Prognosis poor Dietary Evaluation Review Comments: 1. Continue TPN to meet at least 75% estimated needs 2. Continue current POC Expected Outcomes/Goals: FU 2-3 days to meet adequate energy & protein within 7 days of NPO Protein Calorie Malnutrition: Severe (rn) Plan discussed with: Other CC Plasma Assessment Blood Product Administration S: [id number] LEANDRO BLACK MD Dec 04, 2024 10:38
--- NOTE | 2024-12-04 17:10 | DVHPN2 ---
Progress Note - Dictate Date Seen: Dec 04, 2024 Has the PT tested + for MRSA If YES, has PT been informed?: No Medical Necessity Reason Pt with a Central, PICC or Fol: Yes The following are medically ne: Central Line, Gómez Catheter Reason for gómez catheter: Strict I&O vital signs Vital Sign Date Time Temp Pulse Resp B/P (MAP) Pulse Ox O2 Delivery O2 Flow Rate FiO2 12/04/24 16:00 98.5 85 27 150/79 (102) 97 98.5 12/04/24 16:00 Room Air* 0 21 Total Intake and Output 12/03/24 12/03/24 12/04/24 15:00 23:00 07:00 Intake Total 350 ml 600 ml 450 ml Output Total 770 ml 250 ml Balance 350 ml -170 ml 200 ml medications Current Medications Medications Dose Ordered Sig/Wally Route Start Time Stop Time Status Last Admin Dose Admin Ondansetron HCl 4 mg Q4HP PRN IV 10/04/24 11:45 Morphine Sulfate 2 mg Q4HPRN PRN IV 10/04/24 11:45 Cancel Morphine Sulfate 2 mg Q30M PRN IV 10/04/24 11:45 Cancel Lorazepam 50 mg/ Sodium Chloride 50 ml @ 1 mls/hr Q24H IV 10/04/24 18:15 Cancel Amino Acids 0 ml @ 0 mls/hr PER PHARMACY IV 10/05/24 14:30 UNV Meropenem 50 ml @ 17 mls/hr Q12HR IV 10/07/24 10:00 UNV Levalbuterol HCl 0.625 mg Q6HR NEB 10/13/24 12:00 12/04/24 13:32 0.625 MG Ipratropium [place] 0.5 mg Q6HR NEB 10/13/24 12:00 12/04/24 13:32 0.5 MG Morphine Sulfate 2 mg Q4HPRN PRN IV 10/21/24 11:30 11/10/24 05:15 2 MG Pantoprazole Sodium 50 ml @ 0 mls/hr Q0M IV 10/28/24 16:15 Cancel Sodium Chloride 10 ml QSHIFT@10,22 IV 10/31/24 22:00 12/04/24 09:49 10 ML Acetaminophen/ Hydrocodone Bitart 1 tab Q4HPRN PRN PO 11/06/24 09:15 Labetalol HCl 10 mg Q2HPRN PRN IV 11/12/24 17:00 12/02/24 15:22 10 MG Lorazepam 1 mg Q4HP PRN IV 11/14/24 16:15 11/28/24 05:31 1 MG Albuterol 2.5 mg Q3HPRN PRN NEB 11/18/24 10:30 12/01/24 18:13 2.5 MG Nicotine 1 patch DAILY TD 11/26/24 10:00 12/04/24 09:51 1 PATCH Sucralfate 1 gm TID@0600,1130,2200 PO 11/27/24 09:15 12/04/24 11:39 1 GM Pantoprazole Sodium 40 mg BID IV 11/28/24 10:00 12/04/24 09:49 40 MG Enteral Nutritional Formula 240 ml TIDWM PO 11/28/24 12:00 12/04/24 12:47 240 ML Hydralazine HCl 50 mg Q12H PO 11/30/24 18:00 12/04/24 06:05 50 MG Nifedipine 120 mg DAILY PO 12/02/24 10:00 12/04/24 09:50 120 MG Multivitamins/ Minerals 1 tab DAILY PO 12/03/24 10:00 12/04/24 09:49 1 TAB Amino Acid Protein 30 ml DAILY PO 12/03/24 08:00 12/04/24 10:07 30 ML Labetalol HCl 200 mg Q12HR PO 12/03/24 10:00 12/04/24 09:49 200 MG Lactulose 30 ml Q12HP PRN PO 12/03/24 09:00 laboratory and microbiology Laboratory Tests 12/04/24 04:20 Test 12/04/24 04:20 Range/Units Serum Glucose 86 74-106 mg/dL Assessment/Plan Impression Acute hypoxemic respiratory failure S/p tracheostomy Perforated viscus Septic shock Smoker Patient seen and examined in ANNIE Events S/p tracheostomy tracheotomy tube downsized to 4 Shiley No new complaints Labs and imaging reviewed ABG reviewed Management Supplemental oxygen as needed trache care per RT completed abx afebrile Bronchodilators Monitor renal function HD per nephrology Management deferred Monitor electrolytes Supplement as needed Nutritional support Continue ambulation F/u physical therapy DVT prophylaxis ok to dc from pulm standpoint f/up with pulm clinic Dietary Evaluation Review Comments: 1. Continue TPN to meet at least 75% estimated needs 2. Continue current POC Expected Outcomes/Goals: FU 2-3 days to meet adequate energy & protein within 7 days of NPO Protein Calorie Malnutrition: Severe (rn) Plan discussed with: Patient CC Plasma Assessment Blood Product Administration S: [id number] VALENTE DEE MD Dec 04, 2024 17:10
--- NOTE | 2024-12-04 20:27 | DVHPN2 ---
Progress Note - Dictate Date Seen: Dec 04, 2024 Has the PT tested + for MRSA If YES, has PT been informed?: No Medical Necessity Reason Pt with a Central, PICC or Fol: Yes The following are medically ne: Central Line, Gómez Catheter Reason for gómez catheter: Strict I&O Subjective Patient is awake alert, tracheostomy tube down sized to [place]iley four His cholecystostomy tube was clamped yesterday Liver enzymes today continue to be normal when patient has no abdominal pain vital signs Vital Sign Date Time Temp Pulse Resp B/P (MAP) Pulse Ox O2 Delivery O2 Flow Rate FiO2 12/04/24 18:00 90 26 151/80 (103) 97 12/04/24 18:00 Room Air* 0 21 12/04/24 16:00 98.5 98.5 Total Intake and Output 12/03/24 12/03/24 12/04/24 15:00 23:00 07:00 Intake Total 350 ml 600 ml 450 ml Output Total 770 ml 250 ml Balance 350 ml -170 ml 200 ml medications Current Medications Medications Dose Ordered Sig/Wally Route Start Time Stop Time Status Last Admin Dose Admin Ondansetron HCl 4 mg Q4HP PRN IV 10/04/24 11:45 Morphine Sulfate 2 mg Q4HPRN PRN IV 10/04/24 11:45 Cancel Morphine Sulfate 2 mg Q30M PRN IV 10/04/24 11:45 Cancel Lorazepam 50 mg/ Sodium Chloride 50 ml @ 1 mls/hr Q24H IV 10/04/24 18:15 Cancel Amino Acids 0 ml @ 0 mls/hr PER PHARMACY IV 10/05/24 14:30 UNV Meropenem 50 ml @ 17 mls/hr Q12HR IV 10/07/24 10:00 UNV Levalbuterol HCl 0.625 mg Q6HR NEB 10/13/24 12:00 12/04/24 18:20 0.625 MG Ipratropium [place] 0.5 mg Q6HR NEB 10/13/24 12:00 12/04/24 18:20 0.5 MG Morphine Sulfate 2 mg Q4HPRN PRN IV 10/21/24 11:30 11/10/24 05:15 2 MG Pantoprazole Sodium 50 ml @ 0 mls/hr Q0M IV 10/28/24 16:15 Cancel Sodium Chloride 10 ml QSHIFT@10,22 IV 10/31/24 22:00 12/04/24 09:49 10 ML Acetaminophen/ Hydrocodone Bitart 1 tab Q4HPRN PRN PO 11/06/24 09:15 Labetalol HCl 10 mg Q2HPRN PRN IV 11/12/24 17:00 12/02/24 15:22 10 MG Lorazepam 1 mg Q4HP PRN IV 11/14/24 16:15 11/28/24 05:31 1 MG Albuterol 2.5 mg Q3HPRN PRN NEB 11/18/24 10:30 12/01/24 18:13 2.5 MG Nicotine 1 patch DAILY TD 11/26/24 10:00 12/04/24 09:51 1 PATCH Sucralfate 1 gm TID@0600,1130,2200 PO 11/27/24 09:15 12/04/24 11:39 1 GM Pantoprazole Sodium 40 mg BID IV 11/28/24 10:00 12/04/24 09:49 40 MG Enteral Nutritional Formula 240 ml TIDWM PO 11/28/24 12:00 12/04/24 12:47 240 ML Hydralazine HCl 50 mg Q12H PO 11/30/24 18:00 12/04/24 17:55 50 MG Nifedipine 120 mg DAILY PO 12/02/24 10:00 12/04/24 09:50 120 MG Multivitamins/ Minerals 1 tab DAILY PO 12/03/24 10:00 12/04/24 09:49 1 TAB Amino Acid Protein 30 ml DAILY PO 12/03/24 08:00 12/04/24 10:07 30 ML Labetalol HCl 200 mg Q12HR PO 12/03/24 10:00 12/04/24 09:49 200 MG Lactulose 30 ml Q12HP PRN PO 12/03/24 09:00 objective General Appearance: Alert, awake on trach collar HEENT: Atraumatic, PERRLA;Mild pallor, NG tube tolerating enteral tube feedings Lungs: Decreased breath sounds at bases) Cardiovascular: Regular rate, Normal S1, Normal S2, Abdomen: soft nontender well-healed midline scar without any drainage, hypoactive bowel sounds Cholecystostomy tube draining bile laboratory and microbiology Laboratory Tests 12/04/24 04:20 Test 12/04/24 04:20 Range/Units Serum Glucose 86 74-106 mg/dL Problems(with codes): (1) Elevated liver enzymes (2) Altered mental status (3) Perforated viscus (4) Cholecystitis (5) TIA (transient ischemic attack) (6) Troponin level elevated (7) Shock Prognosis Plan Discuss with IR after 48-72 hours of clamping if the cholecystostomy tube can be removed safely with a cholangiogram Continue physical therapy, pain control, IV antibiotics Monitor labs Dietary Evaluation Review Comments: 1. Continue TPN to meet at least 75% estimated needs 2. Continue current POC Expected Outcomes/Goals: FU 2-3 days to meet adequate energy & protein within 7 days of NPO Protein Calorie Malnutrition: Severe (rn) Plan discussed with: Other (None) CC Plasma Assessment Blood Product Administration S: [id number] GURJIT NOBLE MD Dec 04, 2024 20:27
[2024-12-05] VITALS (75 sets, daily range): BP systolic 101–159; BP diastolic 72–88; PULSE 75–107; RESP 17–33; TEMP 97.8–99.8; O2SAT 93–100
[2024-12-05 05:35] LABS: Hematocrit 27.4 % (41.0-53.0); Hemoglobin 8.8 g/dL (13.5-17.5); Mean Corpuscular Hemoglobin 27.9 pg (28.0-32.0); Mean Corpuscular Volume 86.3 fL (80.0-100.0); Nucleated Red Blood Cells % 0.1 %
[2024-12-05 05:57] LABS: Alanine Aminotransferase 21 U/L (7-40); Albumin 3.5 g/dL (3.2-4.8); Anion Gap 8 (5-15); BUN/Creatinine Ratio 20.7 (10.0-20.0); Calcium 9.2 mg/dL (8.7-10.4); Carbon Dioxide 30 mmol/L (20-31); Chloride 99 mmol/L (98-107); Glucose 96 mg/dL (74-106); Potassium 4.2 mmol/L (3.5-5.1); Sodium 137 mmol/L (136-145); Total Protein 7.3 g/dL (5.7-8.2)
[2024-12-05 05:58] LABS: Bilirubin, Total 0.5 mg/dL (0.2-1.0)
[2024-12-05 05:59] LABS: Alkaline Phosphatase 117 U/L (46-116); Blood Urea Nitrogen 25 mg/dL (9-23)
--- NOTE | 2024-12-05 08:43 | DVHPN2 ---
Subjective Patient is alert following commands. Denies any symptoms. Reviewed: Care Plan, H&P, Labs, Medications, Previous Orders, Radiology, Other (Consultants) Changes from previous H/P or p: No Changes General: Per HPI Objective Vitals Vital Signs Date Time Temp Pulse Resp B/P (MAP) Pulse Ox O2 Delivery O2 Flow Rate FiO2 12/05/24 07:10 83 22 97 12/05/24 07:04 Room Air 0.0 12/05/24 07:04 21 12/05/24 06:23 152/76 12/05/24 04:00 97.8 97.8 Intake/Output Intake and Output 12/05/24 07:00 Intake Total 1690 ml Output Total 900 ml Balance 790 ml Intake Oral 1690 ml Output Urine Total 900 ml General Appearance: Alert, Oriented X3, Cooperative, mild distress, Other HEENT: Atraumatic, PERRLA, Other (Tracheostomy, size five Shiley) Neck: Other (Tracheostomy) Lungs: Clear to auscultation, Normal air movement, Other Cardiovascular: Normal S1, Normal S2, Other Abdomen: Other Extremities: Normal pulses Neuro: Cranial nerves 3-12 NL, Other Skin: Dry, Intact, Wounds, Other Psych/Mental Status: Other Medications Current Medications Medications Dose Ordered Sig/Wally Route Start Time Stop Time Status Last Admin Dose Admin Ondansetron HCl 4 mg Q4HP PRN IV 10/04/24 11:45 Morphine Sulfate 2 mg Q4HPRN PRN IV 10/04/24 11:45 Cancel Morphine Sulfate 2 mg Q30M PRN IV 10/04/24 11:45 Cancel Lorazepam 50 mg/ Sodium Chloride 50 ml @ 1 mls/hr Q24H IV 10/04/24 18:15 Cancel Amino Acids 0 ml @ 0 mls/hr PER PHARMACY IV 10/05/24 14:30 UNV Meropenem 50 ml @ 17 mls/hr Q12HR IV 10/07/24 10:00 UNV Levalbuterol HCl 0.625 mg Q6HR NEB 10/13/24 12:00 12/05/24 07:04 0.625 MG Ipratropium [place] 0.5 mg Q6HR NEB 10/13/24 12:00 12/05/24 07:04 0.5 MG Morphine Sulfate 2 mg Q4HPRN PRN IV 10/21/24 11:30 11/10/24 05:15 2 MG Pantoprazole Sodium 50 ml @ 0 mls/hr Q0M IV 10/28/24 16:15 Cancel Sodium Chloride 10 ml QSHIFT@10,22 IV 10/31/24 22:00 12/04/24 22:25 10 ML Acetaminophen/ Hydrocodone Bitart 1 tab Q4HPRN PRN PO 11/06/24 09:15 Labetalol HCl 10 mg Q2HPRN PRN IV 11/12/24 17:00 12/02/24 15:22 10 MG Lorazepam 1 mg Q4HP PRN IV 11/14/24 16:15 11/28/24 05:31 1 MG Albuterol 2.5 mg Q3HPRN PRN NEB 11/18/24 10:30 12/01/24 18:13 2.5 MG Nicotine 1 patch DAILY TD 11/26/24 10:00 12/04/24 09:51 1 PATCH Sucralfate 1 gm TID@0600,1130,2200 PO 11/27/24 09:15 12/05/24 06:24 1 GM Pantoprazole Sodium 40 mg BID IV 11/28/24 10:00 12/04/24 22:25 40 MG Enteral Nutritional Formula 240 ml TIDWM PO 11/28/24 12:00 12/04/24 12:47 240 ML Hydralazine HCl 50 mg Q12H PO 11/30/24 18:00 12/05/24 06:23 50 MG Nifedipine 120 mg DAILY PO 12/02/24 10:00 12/04/24 09:50 120 MG Multivitamins/ Minerals 1 tab DAILY PO 12/03/24 10:00 12/04/24 09:49 1 TAB Amino Acid Protein 30 ml DAILY PO 12/03/24 08:00 12/04/24 10:07 30 ML Labetalol HCl 200 mg Q12HR PO 12/03/24 10:00 12/04/24 22:25 200 MG Lactulose 30 ml Q12HP PRN PO 12/03/24 09:00 Laboratory Results Laboratory Tests 12/05/24 04:26 Chemistry Test 12/05/24 04:26 Albumin 3.5 g/dL (3.2-4.8) Calcium Level 9.2 mg/dL (8.7-10.4) Total Protein 7.3 g/dL (5.7-8.2) LFT Test 12/05/24 04:26 Alanine Aminotransferase (ALT) 21 U/L (7-40) Alkaline Phosphatase 117 U/L (46-116) H Aspartate Amino Transferase (AST) 20 U/L (13-40) Total Bilirubin 0.5 mg/dL (0.2-1.0) Urinalysis Test 10/05/24 15:05 10/26/24 20:33 11/07/24 12:40 Urine Mucus Few (None Seen) Urine Color Light-yellow (Yellow) Urine Clarity Clear (Clear) Urine pH 7.0 (5.0-9.0) Urine Specific [place] 1.014 (1.001-1.035) Urine Protein 1+ (Negative) H Urine Ketones Negative (Negative) Urine Blood 1+ /uL (Negative) H Urine Nitrite Negative (Negative) Urine Bilirubin Negative (Negative) Urine Urobilinogen Normal mg/dL (Negative) Urine Leukocyte Esterase Negative /uL (Negative) Urine RBC 1 /hpf (0 - 3) Urine Microscopic WBC 3 /HPF (0-3) Urine Squamous Epithelial Cells None seen /hpf (<5) Urine Bacteria Few /hpf (None Seen) H Urine Glucose Normal mg/dL (Normal) Urine Creatinine 64.63 mg/dL (30.0-125.0) Urine Protein/Creatinine Ratio 3.11 Urine Sodium 34 mmol/L (40-220) L Urine Total Protein 200.7 mg/dL (1-14) H Microbiology Microbiology Date/Time Source Procedure Growth Status 11/20/24 09:56 Sputum Gram Stain - Final Complete 11/20/24 09:56 Sputum Respiratory Culture - Final Complete 11/20/24 08:16 Blood Blood Culture - Final NO GROWTH AFTER 5 DAYS OF INCUBATION. Complete 11/10/24 22:44 Voided Urine Urine Culture - Final Complete 10/18/24 09:21 Pleural Fluid Gram Stain - Final Complete 10/18/24 09:21 Pleural Fluid Body Fluid Culture - Final Complete 10/04/24 17:10 Nose MRSA Screen - Final Complete Labs and/or images reviewed: Labs reviewed by me, Image(s) reviewed by me Assessment/Plan Assessment/Plan Impression: -severe septic shock -pneumoperitoneum secondary to perforated gastric ulcer -acute kidney injury, hemodynamically mediated, probable VMN -acute hypoxic respiratory failure -shock liver -nicotine dependence -history of CVA -right upper extremity DVT -multifocal pneumonia, probable Gram-positive/Gram-negative etiology -anemia secondary to nutrition, renal failure -bilateral pleural effusions -small left pneumothorax -Failure of ventilator weaning, status post tracheostomy -fungemia Plan: Events: No events overnight. -antihypertensive regimen: Continue -continue Protonix 40 mg b.i.d., Carafate a.c. HS -physical therapy, out of bed as tolerated -repeat labs in am Total time spent with patient discussing and formulating plan of care: 35 minutes. This medical document was created using an electronic medical record system with [employer] dictation system. Although this document has been carefully reviewed, there may still be some phonetic and typographical errors. These areas are purely typographical due to imperfections of the software programs, and do not reflect any compromise in the patient's medical care. Plan discussed with: Patient, Other (RN) Date of Service: Dec 05, 2024 Billing Provider: CHEYENNE PIKE NP Common Visit Codes: [id number] INP/OBS CARE(HIGH) CHEYENNE PIKE NP Dec 05, 2024 08:43
--- NOTE | 2024-12-05 10:25 | DVHPN2 ---
Progress Note - Dictate Date Seen: Dec 05, 2024 Has the PT tested + for MRSA If YES, has PT been informed?: No Medical Necessity Reason Pt with a Central, PICC or Fol: Yes The following are medically ne: Central Line, Gómez Catheter Reason for gómez catheter: Strict I&O vital signs Vital Sign Date Time Temp Pulse Resp B/P (MAP) Pulse Ox O2 Delivery O2 Flow Rate FiO2 12/05/24 10:09 170/114 12/05/24 09:15 85 22 96 12/05/24 08:00 Room Air* 0 21 12/05/24 04:00 97.8 97.8 Total Intake and Output 12/04/24 12/04/24 12/05/24 15:00 23:00 07:00 Intake Total 800 ml 650 ml 240 ml Output Total 400 ml 500 ml Balance 800 ml 250 ml -260 ml medications Current Medications Medications Dose Ordered Sig/Wally Route Start Time Stop Time Status Last Admin Dose Admin Ondansetron HCl 4 mg Q4HP PRN IV 10/04/24 11:45 Morphine Sulfate 2 mg Q4HPRN PRN IV 10/04/24 11:45 Cancel Morphine Sulfate 2 mg Q30M PRN IV 10/04/24 11:45 Cancel Lorazepam 50 mg/ Sodium Chloride 50 ml @ 1 mls/hr Q24H IV 10/04/24 18:15 Cancel Amino Acids 0 ml @ 0 mls/hr PER PHARMACY IV 10/05/24 14:30 UNV Meropenem 50 ml @ 17 mls/hr Q12HR IV 10/07/24 10:00 UNV Levalbuterol HCl 0.625 mg Q6HR NEB 10/13/24 12:00 12/05/24 07:04 0.625 MG Ipratropium [place] 0.5 mg Q6HR NEB 10/13/24 12:00 12/05/24 07:04 0.5 MG Morphine Sulfate 2 mg Q4HPRN PRN IV 10/21/24 11:30 11/10/24 05:15 2 MG Pantoprazole Sodium 50 ml @ 0 mls/hr Q0M IV 10/28/24 16:15 Cancel Sodium Chloride 10 ml QSHIFT@22 IV 10/31/24 22:00 12/04/24 22:25 10 ML Acetaminophen/ Hydrocodone Bitart 1 tab Q4HPRN PRN PO 11/06/24 09:15 Labetalol HCl 10 mg Q2HPRN PRN IV 11/12/24 17:00 12/02/24 15:22 10 MG Lorazepam 1 mg Q4HP PRN IV 11/14/24 16:15 11/28/24 05:31 1 MG Albuterol 2.5 mg Q3HPRN PRN NEB 11/18/24 10:30 12/01/24 18:13 2.5 MG Nicotine 1 patch DAILY TD 11/26/24 10:00 12/04/24 09:51 1 PATCH Sucralfate 1 gm TID@0600,1130,2200 PO 11/27/24 09:15 12/05/24 06:24 1 GM Pantoprazole Sodium 40 mg BID IV 11/28/24 10:00 12/04/24 22:25 40 MG Enteral Nutritional Formula 240 ml TIDWM PO 11/28/24 12:00 12/05/24 08:00 240 ML Hydralazine HCl 50 mg Q12H PO 11/30/24 18:00 12/05/24 06:23 50 MG Nifedipine 120 mg DAILY PO 12/02/24 10:00 12/04/24 09:50 120 MG Multivitamins/ Minerals 1 tab DAILY PO 12/03/24 10:00 12/04/24 09:49 1 TAB Amino Acid Protein 30 ml DAILY PO 12/03/24 08:00 12/04/24 10:07 30 ML Labetalol HCl 200 mg Q12HR PO 12/03/24 10:00 12/05/24 10:09 200 MG Lactulose 30 ml Q12HP PRN PO 12/03/24 09:00 laboratory and microbiology Laboratory Tests 12/05/24 04:26 Test 12/05/24 04:26 Range/Units Serum Glucose 96 74-106 mg/dL Assessment/Plan Impression Acute hypoxemic respiratory failure S/p tracheostomy Perforated viscus Septic shock Smoker Patient seen and examined in ANNIE Events S/p tracheostomy tracheotomy tube downsized to 4 Shiley No new complaints Labs and imaging reviewed ABG reviewed Management Supplemental oxygen as needed trache care per RT completed abx afebrile Bronchodilators Monitor renal function HD per nephrology Management deferred Monitor electrolytes Supplement as needed Nutritional support Continue ambulation F/u physical therapy DVT prophylaxis ok to dc from pulm standpoint f/up with pulm clinic Dietary Evaluation Review Comments: 1. Continue TPN to meet at least 75% estimated needs 2. Continue current POC Expected Outcomes/Goals: FU 2-3 days to meet adequate energy & protein within 7 days of NPO Protein Calorie Malnutrition: Severe (rn) Plan discussed with: Patient CC Plasma Assessment Blood Product Administration S: [id number] VALENTE DEE MD Dec 05, 2024 10:25
--- NOTE | 2024-12-05 14:54 | DVHPN2 ---
Progress Note - Dictate Date Seen: Dec 05, 2024 Has the PT tested + for MRSA If YES, has PT been informed?: No Medical Necessity Reason Pt with a Central, PICC or Fol: Yes The following are medically ne: Central Line, Gómez Catheter Reason for gómez catheter: Strict I&O Subjective Patient is awake alert, tracheostomy tube down sized to Shiley four His cholecystostomy tube was clamped yesterday Liver enzymes today continue to be normal when patient has no abdominal pain vital signs Vital Sign Date Time Temp Pulse Resp B/P (MAP) Pulse Ox O2 Delivery O2 Flow Rate FiO2 12/05/24 13:00 86 23 126/73 (90) 96 12/05/24 12:03 Room Air 0.0 12/05/24 12:03 21 12/05/24 12:00 98.3 98.3 Total Intake and Output 12/04/24 12/04/24 12/05/24 15:00 23:00 07:00 Intake Total 800 ml 650 ml 240 ml Output Total 400 ml 500 ml Balance 800 ml 250 ml -260 ml medications Current Medications Medications Dose Ordered Sig/Wally Route Start Time Stop Time Status Last Admin Dose Admin Ondansetron HCl 4 mg Q4HP PRN IV 10/04/24 11:45 Morphine Sulfate 2 mg Q4HPRN PRN IV 10/04/24 11:45 Cancel Morphine Sulfate 2 mg Q30M PRN IV 10/04/24 11:45 Cancel Lorazepam 50 mg/ Sodium Chloride 50 ml @ 1 mls/hr Q24H IV 10/04/24 18:15 Cancel Amino Acids 0 ml @ 0 mls/hr PER PHARMACY IV 10/05/24 14:30 UNV Meropenem 50 ml @ 17 mls/hr Q12HR IV 10/07/24 10:00 UNV Levalbuterol HCl 0.625 mg Q6HR NEB 10/13/24 12:00 12/05/24 12:03 0.625 MG Ipratropium [place] 0.5 mg Q6HR NEB 10/13/24 12:00 12/05/24 12:03 0.5 MG Morphine Sulfate 2 mg Q4HPRN PRN IV 10/21/24 11:30 11/10/24 05:15 2 MG Pantoprazole Sodium 50 ml @ 0 mls/hr Q0M IV 10/28/24 16:15 Cancel Sodium Chloride 10 ml QSHIFT@10,22 IV 10/31/24 22:00 12/05/24 10:29 10 ML Acetaminophen/ Hydrocodone Bitart 1 tab Q4HPRN PRN PO 11/06/24 09:15 Labetalol HCl 10 mg Q2HPRN PRN IV 11/12/24 17:00 12/02/24 15:22 10 MG Lorazepam 1 mg Q4HP PRN IV 11/14/24 16:15 11/28/24 05:31 1 MG Albuterol 2.5 mg Q3HPRN PRN NEB 11/18/24 10:30 12/01/24 18:13 2.5 MG Nicotine 1 patch DAILY TD 11/26/24 10:00 12/05/24 10:29 1 PATCH Sucralfate 1 gm TID@0600,1130,2200 PO 11/27/24 09:15 12/05/24 10:54 1 GM Pantoprazole Sodium 40 mg BID IV 11/28/24 10:00 12/05/24 10:28 40 MG Enteral Nutritional Formula 240 ml TIDWM PO 11/28/24 12:00 12/05/24 12:00 240 ML Hydralazine HCl 50 mg Q12H PO 11/30/24 18:00 12/05/24 06:23 50 MG Nifedipine 120 mg DAILY PO 12/02/24 10:00 12/05/24 10:45 120 MG Multivitamins/ Minerals 1 tab DAILY PO 12/03/24 10:00 12/05/24 10:28 1 TAB Amino Acid Protein 30 ml DAILY PO 12/03/24 08:00 12/05/24 10:32 30 ML Labetalol HCl 200 mg Q12HR PO 12/03/24 10:00 12/05/24 10:09 200 MG Lactulose 30 ml Q12HP PRN PO 12/03/24 09:00 objective General Appearance: Alert, awake on trach collar HEENT: Atraumatic, PERRLA;Mild pallor, NG tube tolerating enteral tube feedings Lungs: Decreased breath sounds at bases) Cardiovascular: Regular rate, Normal S1, Normal S2, Abdomen: soft nontender well-healed midline scar without any drainage, hypoactive bowel sounds Cholecystostomy tube draining bile laboratory and microbiology Laboratory Tests 12/05/24 04:26 Test 12/05/24 04:26 Range/Units Serum Glucose 96 74-106 mg/dL Problems(with codes): (1) Elevated liver enzymes (2) Cholecystitis (3) TIA (transient ischemic attack) (4) Troponin level elevated (5) Shock (6) Altered mental status (7) Severe anemia (8) Acute kidney injury (9) Perforated viscus Prognosis Plan Discuss with IR after 48-72 hours of clamping if the cholecystostomy tube can be removed safely with a cholangiogram check Patient will have to wait for outpatient surgical consult to discuss elective cholecystectomy Tracheostomy is going to be closed on Sunday Continue physical therapy, pain control, IV antibiotics Monitor labs Dietary Evaluation Review Comments: 1. Continue TPN to meet at least 75% estimated needs 2. Continue current POC Expected Outcomes/Goals: FU 2-3 days to meet adequate energy & protein within 7 days of NPO Protein Calorie Malnutrition: Severe (rn) Plan discussed with: Patient, Other (ANNIE Nurse Cathie) CC Plasma Assessment Blood Product Administration S: [id number] GURJIT NOBLE MD Dec 05, 2024 14:54
[2024-12-06] VITALS (67 sets, daily range): BP systolic 114–166; BP diastolic 58–87; PULSE 75–100; RESP 15–41; TEMP 97.2–98.9; O2SAT 93–100
[2024-12-06 06:19] LABS: Alanine Aminotransferase 24 U/L (7-40); Albumin 3.4 g/dL (3.2-4.8); Alkaline Phosphatase 115 U/L (46-116); Anion Gap 11 (5-15); BUN/Creatinine Ratio 21.6 (10.0-20.0); Blood Urea Nitrogen 29 mg/dL (9-23); Calcium 9.0 mg/dL (8.7-10.4); Carbon Dioxide 26 mmol/L (20-31); Chloride 100 mmol/L (98-107); Glucose 90 mg/dL (74-106); Potassium 5.0 mmol/L (3.5-5.1); Sodium 137 mmol/L (136-145); Total Protein 6.8 g/dL (5.7-8.2)
[2024-12-06 06:20] LABS: Bilirubin, Total 0.5 mg/dL (0.2-1.0)
[2024-12-06 08:38] LABS: Hematocrit 27.3 % (41.0-53.0); Hemoglobin 8.8 g/dL (13.5-17.5); Mean Corpuscular Hemoglobin 28.4 pg (28.0-32.0); Mean Corpuscular Volume 88.0 fL (80.0-100.0); Nucleated Red Blood Cells % 0.2 %
--- NOTE | 2024-12-06 10:33 | DVHPN2 ---
Progress Note - Dictate Date Seen: Dec 06, 2024 Has the PT tested + for MRSA If YES, has PT been informed?: No Medical Necessity Reason Pt with a Central, PICC or Fol: Yes The following are medically ne: Central Line, Gómez Catheter Reason for gómez catheter: Strict I&O Subjective asked by GI (Dr Stoddard) to see the patient for possible removal of cholecystostomy tube. it has been clamped for 2 days. E: no major events o/n. no complaints. franchesca po well. vital signs Vital Sign Date Time Temp Pulse Resp B/P (MAP) Pulse Ox O2 Delivery O2 Flow Rate FiO2 12/06/24 10:12 114/87 12/06/24 10:11 94 12/06/24 09:00 32 94 12/06/24 08:00 Room Air* 0 21 12/06/24 04:00 98.3 98.3 Total Intake and Output 12/05/24 12/05/24 12/06/24 15:00 23:00 07:00 Intake Total 800 ml 420 ml 240 ml Output Total 450 ml 700 ml Balance 800 ml -30 ml -460 ml medications Current Medications Medications Dose Ordered Sig/Wally Route Start Time Stop Time Status Last Admin Dose Admin Ondansetron HCl 4 mg Q4HP PRN IV 10/04/24 11:45 Morphine Sulfate 2 mg Q4HPRN PRN IV 10/04/24 11:45 Cancel Morphine Sulfate 2 mg Q30M PRN IV 10/04/24 11:45 Cancel Lorazepam 50 mg/ Sodium Chloride 50 ml @ 1 mls/hr Q24H IV 10/04/24 18:15 Cancel Amino Acids 0 ml @ 0 mls/hr PER PHARMACY IV 10/05/24 14:30 UNV Meropenem 50 ml @ 17 mls/hr Q12HR IV 10/07/24 10:00 UNV Levalbuterol HCl 0.625 mg Q6HR NEB 10/13/24 12:00 12/06/24 07:14 0.625 MG Ipratropium [place] 0.5 mg Q6HR NEB 10/13/24 12:00 12/06/24 07:13 0.5 MG Morphine Sulfate 2 mg Q4HPRN PRN IV 10/21/24 11:30 11/10/24 05:15 2 MG Pantoprazole Sodium 50 ml @ 0 mls/hr Q0M IV 10/28/24 16:15 Cancel Sodium Chloride 10 ml QSHIFT@10,22 IV 10/31/24 22:00 12/06/24 10:06 10 ML Acetaminophen/ Hydrocodone Bitart 1 tab Q4HPRN PRN PO 11/06/24 09:15 Labetalol HCl 10 mg Q2HPRN PRN IV 11/12/24 17:00 12/02/24 15:22 10 MG Lorazepam 1 mg Q4HP PRN IV 11/14/24 16:15 11/28/24 05:31 1 MG Albuterol 2.5 mg Q3HPRN PRN NEB 11/18/24 10:30 12/01/24 18:13 2.5 MG Nicotine 1 patch DAILY TD 11/26/24 10:00 12/06/24 10:10 1 PATCH Sucralfate 1 gm TID@0600,1130,2200 PO 11/27/24 09:15 12/06/24 06:11 1 GM Pantoprazole Sodium 40 mg BID IV 11/28/24 10:00 12/06/24 10:06 40 MG Enteral Nutritional Formula 240 ml TIDWM PO 11/28/24 12:00 12/06/24 08:00 240 ML Hydralazine HCl 50 mg Q12H PO 11/30/24 18:00 12/06/24 06:11 50 MG Nifedipine 120 mg DAILY PO 12/02/24 10:00 12/06/24 10:12 120 MG Multivitamins/ Minerals 1 tab DAILY PO 12/03/24 10:00 12/06/24 10:10 1 TAB Amino Acid Protein 30 ml DAILY PO 12/03/24 08:00 12/06/24 10:14 30 ML Labetalol HCl 200 mg Q12HR PO 12/03/24 10:00 12/06/24 10:11 200 MG Lactulose 30 ml Q12HP PRN PO 12/03/24 09:00 objective GEN: alert. NAD. ABD: RUQ drain clamped. soft. NT/ND. laboratory and microbiology Laboratory Tests 12/06/24 08:17 12/06/24 04:35 Test 12/06/24 04:35 Range/Units Serum Glucose 90 74-106 mg/dL Assessment/Plan A: 1. s/p ex lap with repair of large perforated pyloric ulcer clinically stable. P: 1. removed cholecystostomy drain. 2. surgery signing off. Dietary Evaluation Review Comments: 1. Continue TPN to meet at least 75% estimated needs 2. Continue current POC Expected Outcomes/Goals: FU 2-3 days to meet adequate energy & protein within 7 days of NPO Protein Calorie Malnutrition: Severe (rn) Plan discussed with: Patient CC Plasma Assessment Blood Product Administration S: [id number] SAMMIE LEONARDO MD Dec 06, 2024 10:33
--- NOTE | 2024-12-06 13:56 | DVHPN2 ---
Subjective The patient is seen and examined at bedside. Patient is tired today Reviewed: Care Plan, H&P, Labs, Medications, Previous Orders, Radiology, Other (Consultants) Changes from previous H/P or p: No Changes General: Per HPI Objective Vitals Vital Signs Date Time Temp Pulse Resp B/P (MAP) Pulse Ox O2 Delivery O2 Flow Rate FiO2 12/06/24 13:30 83 27 97 12/06/24 12:46 Room Air 0.0 12/06/24 12:46 21 12/06/24 12:15 98.0 98.0 Intake/Output Intake and Output 12/06/24 07:00 Intake Total 1460 ml Output Total 1150 ml Balance 310 ml Intake Oral 1460 ml Output Urine Total 1150 ml Drainage Total 0 ml General Appearance: Alert, Oriented X3, Cooperative, mild distress, Other HEENT: Atraumatic, PERRLA, Other (Tracheostomy, size five Shiley) Neck: Other (Tracheostomy) Lungs: Clear to auscultation, Normal air movement, Other Cardiovascular: Normal S1, Normal S2, Other Abdomen: Other Extremities: Normal pulses Neuro: Cranial nerves 3-12 NL, Other Skin: Dry, Intact, Wounds, Other Psych/Mental Status: Other Medications Current Medications Medications Dose Ordered Sig/Wally Route Start Time Stop Time Status Last Admin Dose Admin Ondansetron HCl 4 mg Q4HP PRN IV 10/04/24 11:45 Morphine Sulfate 2 mg Q4HPRN PRN IV 10/04/24 11:45 Cancel Morphine Sulfate 2 mg Q30M PRN IV 10/04/24 11:45 Cancel Lorazepam 50 mg/ Sodium Chloride 50 ml @ 1 mls/hr Q24H IV 10/04/24 18:15 Cancel Amino Acids 0 ml @ 0 mls/hr PER PHARMACY IV 10/05/24 14:30 UNV Meropenem 50 ml @ 17 mls/hr Q12HR IV 10/07/24 10:00 UNV Levalbuterol HCl 0.625 mg Q6HR NEB 10/13/24 12:00 12/06/24 12:46 0.625 MG Ipratropium [place] 0.5 mg Q6HR NEB 10/13/24 12:00 12/06/24 12:46 0.5 MG Morphine Sulfate 2 mg Q4HPRN PRN IV 10/21/24 11:30 11/10/24 05:15 2 MG Pantoprazole Sodium 50 ml @ 0 mls/hr Q0M IV 10/28/24 16:15 Cancel Sodium Chloride 10 ml QSHIFT@10,22 IV 10/31/24 22:00 12/06/24 10:06 10 ML Acetaminophen/ Hydrocodone Bitart 1 tab Q4HPRN PRN PO 11/06/24 09:15 Labetalol HCl 10 mg Q2HPRN PRN IV 11/12/24 17:00 12/02/24 15:22 10 MG Lorazepam 1 mg Q4HP PRN IV 11/14/24 16:15 11/28/24 05:31 1 MG Albuterol 2.5 mg Q3HPRN PRN NEB 11/18/24 10:30 12/01/24 18:13 2.5 MG Nicotine 1 patch DAILY TD 11/26/24 10:00 12/06/24 10:10 1 PATCH Sucralfate 1 gm TID@0600,1130,2200 PO 11/27/24 09:15 12/06/24 12:23 1 GM Pantoprazole Sodium 40 mg BID IV 11/28/24 10:00 12/06/24 10:06 40 MG Enteral Nutritional Formula 240 ml TIDWM PO 11/28/24 12:00 12/06/24 12:25 240 ML Hydralazine HCl 50 mg Q12H PO 11/30/24 18:00 12/06/24 06:11 50 MG Nifedipine 120 mg DAILY PO 12/02/24 10:00 12/06/24 10:12 120 MG Multivitamins/ Minerals 1 tab DAILY PO 12/03/24 10:00 12/06/24 10:10 1 TAB Amino Acid Protein 30 ml DAILY PO 12/03/24 08:00 12/06/24 10:14 30 ML Labetalol HCl 200 mg Q12HR PO 12/03/24 10:00 12/06/24 10:11 200 MG Lactulose 30 ml Q12HP PRN PO 12/03/24 09:00 Laboratory Results Laboratory Tests 12/06/24 04:35 12/06/24 08:17 Chemistry Test 12/06/24 04:35 Albumin 3.4 g/dL (3.2-4.8) Calcium Level 9.0 mg/dL (8.7-10.4) Total Protein 6.8 g/dL (5.7-8.2) LFT Test 12/06/24 04:35 Alanine Aminotransferase (ALT) 24 U/L (7-40) Alkaline Phosphatase 115 U/L (46-116) Aspartate Amino Transferase (AST) 33 U/L (13-40) Total Bilirubin 0.5 mg/dL (0.2-1.0) Urinalysis Test 10/05/24 15:05 10/26/24 20:33 11/07/24 12:40 Urine Mucus Few (None Seen) Urine Color Light-yellow (Yellow) Urine Clarity Clear (Clear) Urine pH 7.0 (5.0-9.0) Urine Specific [place] 1.014 (1.001-1.035) Urine Protein 1+ (Negative) H Urine Ketones Negative (Negative) Urine Blood 1+ /uL (Negative) H Urine Nitrite Negative (Negative) Urine Bilirubin Negative (Negative) Urine Urobilinogen Normal mg/dL (Negative) Urine Leukocyte Esterase Negative /uL (Negative) Urine RBC 1 /hpf (0 - 3) Urine Microscopic WBC 3 /HPF (0-3) Urine Squamous Epithelial Cells None seen /hpf (<5) Urine Bacteria Few /hpf (None Seen) H Urine Glucose Normal mg/dL (Normal) Urine Creatinine 64.63 mg/dL (30.0-125.0) Urine Protein/Creatinine Ratio 3.11 Urine Sodium 34 mmol/L (40-220) L Urine Total Protein 200.7 mg/dL (1-14) H Microbiology Microbiology Date/Time Source Procedure Growth Status 11/20/24 09:56 Sputum Gram Stain - Final Complete 11/20/24 09:56 Sputum Respiratory Culture - Final Complete 11/20/24 08:16 Blood Blood Culture - Final NO GROWTH AFTER 5 DAYS OF INCUBATION. Complete 11/10/24 22:44 Voided Urine Urine Culture - Final Complete 10/18/24 09:21 Pleural Fluid Gram Stain - Final Complete 10/18/24 09:21 Pleural Fluid Body Fluid Culture - Final Complete 10/04/24 17:10 Nose MRSA Screen - Final Complete Labs and/or images reviewed: Labs reviewed by me Assessment/Plan Assessment/Plan -severe septic shock -pneumoperitoneum secondary to perforated gastric ulcer -acute kidney injury, hemodynamically mediated, probable VMN -acute hypoxic respiratory failure -shock liver -nicotine dependence -history of CVA -right upper extremity DVT -multifocal pneumonia, probable Gram-positive/Gram-negative etiology -anemia secondary to nutrition, renal failure -bilateral pleural effusions -small left pneumothorax -Failure of ventilator weaning, status post tracheostomy -fungemia Plan: Continuing current management. -antihypertensive regimen: Continue -continue Protonix 40 mg b.i.d., Carafate a.c. HS -physical therapy, out of bed as tolerated -repeat labs in am This medical document was created using an electronic medical record system with [employer] dictation system. Although this document has been carefully reviewed, there may still be some phonetic and typographical errors. These areas are purely typographical due to imperfections of the software programs, and do not reflect any compromise in the patient's medical care. This medical document was created using an electronic medical record system with [employer] dictation system. Although this document has been carefully reviewed, there may still be some phonetic and typographical errors. These areas are purely typographical due to imperfections of the software programs, and do not reflect any compromise in the patient's medical care. Plan discussed with: Patient Date of Service: Dec 06, 2024 Billing Provider: HOLLAND GRANT MD Common Visit Codes: [id number] INP/OBS CARE(HIGH) HOLLAND GRANT MD Dec 06, 2024 13:55
--- NOTE | 2024-12-06 14:33 | DVHPN2 ---
Progress Note - Dictate Date Seen: Dec 06, 2024 Has the PT tested + for MRSA If YES, has PT been informed?: No Medical Necessity Reason Pt with a Central, PICC or Fol: Yes The following are medically ne: Central Line, Gómez Catheter Reason for gómez catheter: Strict I&O vital signs Vital Sign Date Time Temp Pulse Resp B/P (MAP) Pulse Ox O2 Delivery O2 Flow Rate FiO2 12/06/24 13:30 83 27 97 12/06/24 12:46 Room Air 0.0 12/06/24 12:46 21 12/06/24 12:15 98.0 98.0 Total Intake and Output 12/05/24 12/05/24 12/06/24 15:00 23:00 07:00 Intake Total 800 ml 420 ml 240 ml Output Total 450 ml 700 ml Balance 800 ml -30 ml -460 ml medications Current Medications Medications Dose Ordered Sig/Wally Route Start Time Stop Time Status Last Admin Dose Admin Ondansetron HCl 4 mg Q4HP PRN IV 10/04/24 11:45 Morphine Sulfate 2 mg Q4HPRN PRN IV 10/04/24 11:45 Cancel Morphine Sulfate 2 mg Q30M PRN IV 10/04/24 11:45 Cancel Lorazepam 50 mg/ Sodium Chloride 50 ml @ 1 mls/hr Q24H IV 10/04/24 18:15 Cancel Amino Acids 0 ml @ 0 mls/hr PER PHARMACY IV 10/05/24 14:30 UNV Meropenem 50 ml @ 17 mls/hr Q12HR IV 10/07/24 10:00 UNV Levalbuterol HCl 0.625 mg Q6HR NEB 10/13/24 12:00 12/06/24 12:46 0.625 MG Ipratropium [place] 0.5 mg Q6HR NEB 10/13/24 12:00 12/06/24 12:46 0.5 MG Morphine Sulfate 2 mg Q4HPRN PRN IV 10/21/24 11:30 11/10/24 05:15 2 MG Pantoprazole Sodium 50 ml @ 0 mls/hr Q0M IV 10/28/24 16:15 Cancel Sodium Chloride 10 ml QSHIFT@,22 IV 10/31/24 22:00 12/06/24 10:06 10 ML Acetaminophen/ Hydrocodone Bitart 1 tab Q4HPRN PRN PO 11/06/24 09:15 Labetalol HCl 10 mg Q2HPRN PRN IV 11/12/24 17:00 12/02/24 15:22 10 MG Lorazepam 1 mg Q4HP PRN IV 11/14/24 16:15 11/28/24 05:31 1 MG Albuterol 2.5 mg Q3HPRN PRN NEB 11/18/24 10:30 12/01/24 18:13 2.5 MG Nicotine 1 patch DAILY TD 11/26/24 10:00 12/06/24 10:10 1 PATCH Sucralfate 1 gm TID@0600,1130,2200 PO 11/27/24 09:15 12/06/24 12:23 1 GM Pantoprazole Sodium 40 mg BID IV 11/28/24 10:00 12/06/24 10:06 40 MG Enteral Nutritional Formula 240 ml TIDWM PO 11/28/24 12:00 12/06/24 12:25 240 ML Hydralazine HCl 50 mg Q12H PO 11/30/24 18:00 12/06/24 06:11 50 MG Nifedipine 120 mg DAILY PO 12/02/24 10:00 12/06/24 10:12 120 MG Multivitamins/ Minerals 1 tab DAILY PO 12/03/24 10:00 12/06/24 10:10 1 TAB Amino Acid Protein 30 ml DAILY PO 12/03/24 08:00 12/06/24 10:14 30 ML Labetalol HCl 200 mg Q12HR PO 12/03/24 10:00 12/06/24 10:11 200 MG Lactulose 30 ml Q12HP PRN PO 12/03/24 09:00 laboratory and microbiology Laboratory Tests 12/06/24 08:17 12/06/24 04:35 Test 12/06/24 04:35 Range/Units Serum Glucose 90 74-106 mg/dL Assessment/Plan Impression Acute hypoxemic respiratory failure S/p tracheostomy Perforated viscus Septic shock Smoker Patient seen and examined in ANNIE Events S/p tracheostomy No acute events Labs and imaging reviewed ABG reviewed Management Supplemental oxygen as needed trache care per RT completed abx afebrile Bronchodilators Monitor renal function HD per nephrology Management deferred Monitor electrolytes Supplement as needed Nutritional support Continue ambulation F/u physical therapy DVT prophylaxis ok to dc from pulm standpoint f/up with pulm clinic Dietary Evaluation Review Comments: 1. Continue TPN to meet at least 75% estimated needs 2. Continue current POC Expected Outcomes/Goals: FU 2-3 days to meet adequate energy & protein within 7 days of NPO Protein Calorie Malnutrition: Severe (rn) Plan discussed with: Patient CC Plasma Assessment Blood Product Administration S: [id number] VALENTE DEE MD Dec 06, 2024 14:33
--- NOTE | 2024-12-06 15:55 | DVHPN2 ---
Progress Note - Dictate Date Seen: Dec 06, 2024 Has the PT tested + for MRSA If YES, has PT been informed?: No Medical Necessity Reason Pt with a Central, PICC or Fol: Yes The following are medically ne: Central Line, Gómez Catheter Reason for gómez catheter: Strict I&O Subjective I requested Dr. Serrano to do a surgical follow up regarding the cholecystostomy tube to see if it could be removed versus cholecystectomy As the patient did not have any gallstones Dr. Serrano felt that it would be too soon to consider cholecystectomy Dr. Serarno rounded on the patient today and he was able to remove his biliary drain today Patient is not having any abdominal pain at the site and so far there was no nausea vomiting or evidence of a biliary leak vital signs Vital Sign Date Time Temp Pulse Resp B/P (MAP) Pulse Ox O2 Delivery O2 Flow Rate FiO2 12/06/24 13:30 83 27 97 12/06/24 12:46 Room Air 0.0 12/06/24 12:46 21 12/06/24 12:15 98.0 98.0 Total Intake and Output 12/05/24 12/05/24 12/06/24 15:00 23:00 07:00 Intake Total 800 ml 420 ml 240 ml Output Total 450 ml 700 ml Balance 800 ml -30 ml -460 ml medications Current Medications Medications Dose Ordered Sig/Wally Route Start Time Stop Time Status Last Admin Dose Admin Ondansetron HCl 4 mg Q4HP PRN IV 10/04/24 11:45 Morphine Sulfate 2 mg Q4HPRN PRN IV 10/04/24 11:45 Cancel Morphine Sulfate 2 mg Q30M PRN IV 10/04/24 11:45 Cancel Lorazepam 50 mg/ Sodium Chloride 50 ml @ 1 mls/hr Q24H IV 10/04/24 18:15 Cancel Amino Acids 0 ml @ 0 mls/hr PER PHARMACY IV 10/05/24 14:30 UNV Meropenem 50 ml @ 17 mls/hr Q12HR IV 10/07/24 10:00 UNV Levalbuterol HCl 0.625 mg Q6HR NEB 10/13/24 12:00 12/06/24 12:46 0.625 MG Ipratropium [place] 0.5 mg Q6HR NEB 10/13/24 12:00 12/06/24 12:46 0.5 MG Morphine Sulfate 2 mg Q4HPRN PRN IV 10/21/24 11:30 11/10/24 05:15 2 MG Pantoprazole Sodium 50 ml @ 0 mls/hr Q0M IV 10/28/24 16:15 Cancel Sodium Chloride 10 ml QSHIFT@10,22 IV 10/31/24 22:00 12/06/24 10:06 10 ML Acetaminophen/ Hydrocodone Bitart 1 tab Q4HPRN PRN PO 11/06/24 09:15 Labetalol HCl 10 mg Q2HPRN PRN IV 11/12/24 17:00 12/02/24 15:22 10 MG Lorazepam 1 mg Q4HP PRN IV 11/14/24 16:15 11/28/24 05:31 1 MG Albuterol 2.5 mg Q3HPRN PRN NEB 11/18/24 10:30 12/01/24 18:13 2.5 MG Nicotine 1 patch DAILY TD 11/26/24 10:00 12/06/24 10:10 1 PATCH Sucralfate 1 gm TID@0600,1130,2200 PO 11/27/24 09:15 12/06/24 12:23 1 GM Pantoprazole Sodium 40 mg BID IV 11/28/24 10:00 12/06/24 10:06 40 MG Enteral Nutritional Formula 240 ml TIDWM PO 11/28/24 12:00 12/06/24 12:25 240 ML Hydralazine HCl 50 mg Q12H PO 11/30/24 18:00 12/06/24 06:11 50 MG Nifedipine 120 mg DAILY PO 12/02/24 10:00 12/06/24 10:12 120 MG Multivitamins/ Minerals 1 tab DAILY PO 12/03/24 10:00 12/06/24 10:10 1 TAB Amino Acid Protein 30 ml DAILY PO 12/03/24 08:00 12/06/24 10:14 30 ML Labetalol HCl 200 mg Q12HR PO 12/03/24 10:00 12/06/24 10:11 200 MG Lactulose 30 ml Q12HP PRN PO 12/03/24 09:00 objective General Appearance: Alert, awake on trach collar HEENT: Atraumatic, PERRLA;Mild pallor, NG tube tolerating enteral tube feedings Lungs: Decreased breath sounds at bases) Cardiovascular: Regular rate, Normal S1, Normal S2, Abdomen: soft nontender well-healed midline scar without any drainage, hypoactive bowel sounds Cholecystostomy tube draining bile laboratory and microbiology Laboratory Tests 12/06/24 08:17 12/06/24 04:35 Test 12/06/24 04:35 Range/Units Serum Glucose 90 74-106 mg/dL Problems(with codes): (1) Elevated liver enzymes (2) Cholecystitis (3) Perforated viscus (4) GI bleed (5) Septic shock (6) Leukocytosis (7) Severe anemia (8) Shock Prognosis Plan Continue dry dressing to the cholecystostomy tube site Repeat labs in the morning Continue to ambulate patient and physical therapy Advance diet as tolerated Tracheostomy likely to be closed on Sunday Discharge planning as per hospitalist after the above Dietary Evaluation Review Comments: 1. Continue TPN to meet at least 75% estimated needs 2. Continue current POC Expected Outcomes/Goals: FU 2-3 days to meet adequate energy & protein within 7 days of NPO Protein Calorie Malnutrition: Severe (rn) Plan discussed with: Other (ANNIE Nurse Cathie) CC Plasma Assessment Blood Product Administration S: [id number] GURJIT NOBLE MD Dec 06, 2024 15:55
--- NOTE | 2024-12-06 22:16 | DVHPN2 ---
Progress Note - Dictate Date Seen: Dec 06, 2024 Has the PT tested + for MRSA If YES, has PT been informed?: No Medical Necessity Reason Pt with a Central, PICC or Fol: Yes The following are medically ne: Central Line, Gómez Catheter Reason for gómez catheter: Strict I&O Subjective Mr. Perez is a 48 years old right-handed gentleman with a history of hypertension, dyslipidemia, multiple strokes, he was brought to the [facility] on 10/04/2024 with a chief company of recurrent syncope, in the hospital, the patient was found to have perforated viscus, and he went through surgical treatment, he was hospital course has been complicated with sepsis, septic shock, pneumonia, right upper extremity DVT. I saw him on 08/23/2023 for TIA I have seen and examined the patient, discussed with his nurse. He is oriented x3, he was able to walk with a walker around 300 ft on 12/06/2024 Tracheostomy tube was removed on 12/06/2024 No new complaints He wants to go home Blood culture, Urinalysis, 08/22/2023: Unremarkable UDS, 08/22/2023: Negative WBC/Hb/PLT'/MCV, 08/22/2023: 10.8/13.1/184/87.4, 10/28/2024: 15/8/487/89.3 10/31/2024: 24.3/9.1/77/88.4 Troponin 1 high-sensitivity, 08/22/2023: 336, 273/300 BUNs/CR, 08/22/2023: 15/1.45 10/31/2024: Two 9/2.42 GFR, 08/22/2023: 59 Liver function test, 10/04/2024: Unremarkable TBI/AST/ALT/AP, 10/04/2024: 0.6/410/335/31, 10/05/2024: 1.3/582/423/39, 10/31/2024: 3.6/54/98/117 TG/CHO L/LDL/HDL, 08/2023: 136/166/111/39 TSH, 08/23/2023: 4.25 Extremity venous study, right arm, 11/09/2024: Thrombus is seen in the cephalic vein in the forearm. DONAL, 08/23/2023: 1. No evidence of intracardiac source of embolus in the study conducted today. 2. Normal valves without significant masses or change vegetations were discernible. 3. No evidence of intra-atrial shunting by bubble study and color Doppler. 4. Mild atherosclerotic plaquing was visualized in the arch of the aorta without evidence of dissection in the visualized part CT head, 10/24/2024: 1. No intracranial hemorrhage or mass effect. 2. Bbmq-so-utbjdrid chronic microvascular ischemic changes. 3. Old bilateral basal ganglia lacunar infarcts. 4. Small bilateral mastoid effusions. CT abdomen/pelvis, 10/04/2024: 1. Extensive intra-abdominal free air concerning for perforated viscus. Surgical consultation is recommended. 2. Enteritis is seen in multiple loops of small bowel in the left hemiabdomen. 3. Moderate abdominopelvic ascites. 4. Small right pleural effusion. CTA neck, head, 08/22/2023:1. CTA head demonstrates no evidence of large vessel occlusion, aneurysm, or significant stenosis. 2. CTA neck demonstrates no evidence of carotid or vertebral dissection or significant stenosis. 3. No noncontrast CT head was performed. 4. Additional findings as detailed above MRI head, 08/23/2023: No acute infarct, intracranial hemorrhage, mass effect, or hydrocephalus. Moderate periventricular and deep subcortical white matter T2 hyperintensities which are nonspecific, but most likely related to sequela of chronic microvascular ischemic changes (I have reviewed the MRI films with our in-house radiologist, Dr. Black, the patient has bilateral multiple subacute/chronic infarcts) MRI head, 11/01/2024: No acute cerebrovascular ischemia. Ssee-st-bylanxth chronic microvascular ischemic changes. Bilateral mastoid effusions. Old bilateral basal ganglia / lopes radiata infarcts. vital signs Vital Sign Date Time Temp Pulse Resp B/P (MAP) Pulse Ox O2 Delivery O2 Flow Rate FiO2 12/06/24 21:00 88 24 152/78 (102) 95 12/06/24 20:00 Room Air* 0 21 12/06/24 20:00 98.7 98.7 Total Intake and Output 12/05/24 12/05/24 12/06/24 15:00 23:00 07:00 Intake Total 800 ml 420 ml 240 ml Output Total 450 ml 700 ml Balance 800 ml -30 ml -460 ml medications Current Medications Medications Dose Ordered Sig/Wally Route Start Time Stop Time Status Last Admin Dose Admin Ondansetron HCl 4 mg Q4HP PRN IV 10/04/24 11:45 Morphine Sulfate 2 mg Q4HPRN PRN IV 10/04/24 11:45 Cancel Morphine Sulfate 2 mg Q30M PRN IV 10/04/24 11:45 Cancel Lorazepam 50 mg/ Sodium Chloride 50 ml @ 1 mls/hr Q24H IV 10/04/24 18:15 Cancel Amino Acids 0 ml @ 0 mls/hr PER PHARMACY IV 10/05/24 14:30 UNV Meropenem 50 ml @ 17 mls/hr Q12HR IV 10/07/24 10:00 UNV Levalbuterol HCl 0.625 mg Q6HR NEB 10/13/24 12:00 12/06/24 18:40 0.625 MG Ipratropium [place] 0.5 mg Q6HR NEB 10/13/24 12:00 12/06/24 18:40 0.5 MG Morphine Sulfate 2 mg Q4HPRN PRN IV 10/21/24 11:30 11/10/24 05:15 2 MG Pantoprazole Sodium 50 ml @ 0 mls/hr Q0M IV 10/28/24 16:15 Cancel Sodium Chloride 10 ml QSHIFT@10,22 IV 10/31/24 22:00 12/06/24 10:06 10 ML Acetaminophen/ Hydrocodone Bitart 1 tab Q4HPRN PRN PO 11/06/24 09:15 Labetalol HCl 10 mg Q2HPRN PRN IV 11/12/24 17:00 12/02/24 15:22 10 MG Lorazepam 1 mg Q4HP PRN IV 11/14/24 16:15 11/28/24 05:31 1 MG Albuterol 2.5 mg Q3HPRN PRN NEB 11/18/24 10:30 12/01/24 18:13 2.5 MG Nicotine 1 patch DAILY TD 11/26/24 10:00 12/06/24 10:10 1 PATCH Sucralfate 1 gm TID@0600,1130,2200 PO 11/27/24 09:15 12/06/24 12:23 1 GM Pantoprazole Sodium 40 mg BID IV 11/28/24 10:00 12/06/24 10:06 40 MG Enteral Nutritional Formula 240 ml TIDWM PO 11/28/24 12:00 12/06/24 18:24 240 ML Hydralazine HCl 50 mg Q12H PO 11/30/24 18:00 12/06/24 18:24 50 MG Nifedipine 120 mg DAILY PO 12/02/24 10:00 12/06/24 10:12 120 MG Multivitamins/ Minerals 1 tab DAILY PO 12/03/24 10:00 12/06/24 10:10 1 TAB Amino Acid Protein 30 ml DAILY PO 12/03/24 08:00 12/06/24 10:14 30 ML Labetalol HCl 200 mg Q12HR PO 12/03/24 10:00 12/06/24 10:11 200 MG Lactulose 30 ml Q12HP PRN PO 12/03/24 09:00 objective General: the patient is well developed and nourished. No acute distress. MENTAL STATUS: Subjective SPEECH, LANGUAGE, HIGHER CORTICAL FUNCTION: He does not vocalize/status post tracheostomy. CRANIAL NERVES:Intact visual ansari to confrontation (visual thread). Pupils are equal, round and reactive. EOMs full and conjugate. Mandibular strength intact. Facial muscles symmetrical and strength intact. SENSATION: Sensation to touch and pinprick is unremarkable MOTOR: Normal muscle bulk. No fasciculations. No abnormal movements or posturing. Muscle power in the extremities: 4-5/5, right side stronger5 REFLEXES: Deep tendon reflexes are increased bilaterally, stronger in the left knee. No pathological reflexes. CEREBELLAR/COORDINATION: Deferred GAIT/STATION: deferred laboratory and microbiology Laboratory Tests 12/06/24 08:17 12/06/24 04:35 Test 12/06/24 04:35 Range/Units Serum Glucose 90 74-106 mg/dL Problem List Altered mental status Metabolic encephalopathy secondary to sepsis, septic shock, pneumonia Hypoxic encephalopathy Viscus perforation status post surgical repair GI bleeding Anemia Fever/ Sepsis/septic shock Respiratory failure, tracheostomy tube removed on 12/06/2024 Multiple strokes Secondary to history methamphetamine, cocaine, alcohol use History of alcohol abuse History of cocaine, methamphetamine abuse Hyperreflexia secondary to multiple strokes Right upper extremity DVT ICU myopathy Assessment/Plan Monitoring Supportive treatment ANNIE care Stabilize vitals, PRN Respiratory suppor PRN Follow-up labs IV antibiotics Protonix TPN Quit tobacco smoking No more alcohol, street drug abuse Stroke risk factors discussed Up to chair Physical therapy GI on case Infectious disease on case Pulmonology on case Hematology on case Nephrology on case More recommended per clinical course This medical document was created using an electronic medical record system with [employer] dictation system. Although this document has been carefully reviewed, there may still be some phonetic and typographical errors. These areas are purely typographical due to imperfections of the software programs, and do not reflect any compromise in the patient's medical care. Prognosis poor Dietary Evaluation Review Comments: 1. Continue TPN to meet at least 75% estimated needs 2. Continue current POC Expected Outcomes/Goals: FU 2-3 days to meet adequate energy & protein within 7 days of NPO Protein Calorie Malnutrition: Severe (rn) Plan discussed with: Other CC Plasma Assessment Blood Product Administration S: [id number] LEANDRO BLACK MD Dec 06, 2024 22:16
[2024-12-07] VITALS (36 sets, daily range): BP systolic 94–162; BP diastolic 55–134; PULSE 66–98; RESP 18–41; TEMP 97.7–98.3; O2SAT 94–100
[2024-12-07 07:11] LABS: Hematocrit 28.0 % (41.0-53.0); Hemoglobin 9.3 g/dL (13.5-17.5); Mean Corpuscular Hemoglobin 28.3 pg (28.0-32.0); Mean Corpuscular Volume 85.4 fL (80.0-100.0); Nucleated Red Blood Cells % 0.1 %
[2024-12-07 07:27] LABS: Alanine Aminotransferase 19 U/L (7-40); Albumin 3.6 g/dL (3.2-4.8); Alkaline Phosphatase 113 U/L (46-116); Anion Gap 7 (5-15); BUN/Creatinine Ratio 20.9 (10.0-20.0); Bilirubin, Total 0.6 mg/dL (0.2-1.0); Calcium 9.9 mg/dL (8.7-10.4); Carbon Dioxide 31 mmol/L (20-31); Chloride 98 mmol/L (98-107); Glucose 94 mg/dL (74-106); Potassium 4.0 mmol/L (3.5-5.1); Sodium 136 mmol/L (136-145); Total Protein 7.4 g/dL (5.7-8.2)
[2024-12-07 07:35] LABS: Blood Urea Nitrogen 24 mg/dL (9-23)
--- NOTE | 2024-12-07 13:02 | DVHPN2 ---
Progress Note - Dictate Date Seen: Dec 07, 2024 Has the PT tested + for MRSA If YES, has PT been informed?: No Medical Necessity Reason Pt with a Central, PICC or Fol: Yes The following are medically ne: Central Line, Gómez Catheter Reason for gómez catheter: Strict I&O vital signs Vital Sign Date Time Temp Pulse Resp B/P (MAP) Pulse Ox O2 Delivery O2 Flow Rate FiO2 12/07/24 11:25 79 22 100 12/07/24 11:19 Room Air* 0 21 12/07/24 11:00 162/82 (108) 12/07/24 08:00 98.0 98.0 Total Intake and Output 12/06/24 12/06/24 12/07/24 15:00 23:00 07:00 Intake Total 420 ml 480 ml Output Total 750 ml 750 ml Balance -330 ml -270 ml medications Current Medications Medications Dose Ordered Sig/Wally Route Start Time Stop Time Status Last Admin Dose Admin Ondansetron HCl 4 mg Q4HP PRN IV 10/04/24 11:45 Morphine Sulfate 2 mg Q4HPRN PRN IV 10/04/24 11:45 Cancel Morphine Sulfate 2 mg Q30M PRN IV 10/04/24 11:45 Cancel Lorazepam 50 mg/ Sodium Chloride 50 ml @ 1 mls/hr Q24H IV 10/04/24 18:15 Cancel Amino Acids 0 ml @ 0 mls/hr PER PHARMACY IV 10/05/24 14:30 UNV Meropenem 50 ml @ 17 mls/hr Q12HR IV 10/07/24 10:00 UNV Levalbuterol HCl 0.625 mg Q6HR NEB 10/13/24 12:00 12/07/24 11:19 0.625 MG Ipratropium [place] 0.5 mg Q6HR NEB 10/13/24 12:00 12/07/24 11:19 0.5 MG Morphine Sulfate 2 mg Q4HPRN PRN IV 10/21/24 11:30 11/10/24 05:15 2 MG Pantoprazole Sodium 50 ml @ 0 mls/hr Q0M IV 10/28/24 16:15 Cancel Sodium Chloride 10 ml QSHIFT@10,22 IV 10/31/24 22:00 12/07/24 09:30 10 ML Acetaminophen/ Hydrocodone Bitart 1 tab Q4HPRN PRN PO 11/06/24 09:15 Labetalol HCl 10 mg Q2HPRN PRN IV 11/12/24 17:00 12/02/24 15:22 10 MG Lorazepam 1 mg Q4HP PRN IV 11/14/24 16:15 11/28/24 05:31 1 MG Albuterol 2.5 mg Q3HPRN PRN NEB 11/18/24 10:30 12/01/24 18:13 2.5 MG Nicotine 1 patch DAILY TD 11/26/24 10:00 12/07/24 09:45 1 PATCH Sucralfate 1 gm TID@0600,1130,2200 PO 11/27/24 09:15 12/07/24 11:11 1 GM Pantoprazole Sodium 40 mg BID IV 11/28/24 10:00 12/07/24 09:30 40 MG Enteral Nutritional Formula 240 ml TIDWM PO 11/28/24 12:00 12/07/24 08:00 240 ML Hydralazine HCl 50 mg Q12H PO 11/30/24 18:00 12/07/24 05:32 50 MG Nifedipine 120 mg DAILY PO 12/02/24 10:00 12/07/24 09:50 120 MG Multivitamins/ Minerals 1 tab DAILY PO 12/03/24 10:00 12/07/24 09:30 1 TAB Amino Acid Protein 30 ml DAILY PO 12/03/24 08:00 12/06/24 10:14 30 ML Labetalol HCl 200 mg Q12HR PO 12/03/24 10:00 12/07/24 09:31 200 MG Lactulose 30 ml Q12HP PRN PO 12/03/24 09:00 laboratory and microbiology Laboratory Tests 12/07/24 04:48 Test 12/07/24 04:48 Range/Units Serum Glucose 94 74-106 mg/dL Assessment/Plan Impression Acute hypoxemic respiratory failure S/p tracheostomy Perforated viscus Septic shock Smoker Patient seen and examined in ANNIE Events S/p tracheostomy No new complaints Labs and imaging reviewed ABG reviewed Management Supplemental oxygen as needed trache care per RT completed abx afebrile Bronchodilators Monitor renal function HD per nephrology Management deferred Monitor electrolytes Supplement as needed Nutritional support Continue ambulation F/u physical therapy DVT prophylaxis ok to dc from pulm standpoint f/up with pulm clinic Dietary Evaluation Review Comments: 1. Continue TPN to meet at least 75% estimated needs 2. Continue current POC Expected Outcomes/Goals: FU 2-3 days to meet adequate energy & protein within 7 days of NPO Protein Calorie Malnutrition: Severe (rn) Plan discussed with: Patient CC Plasma Assessment Blood Product Administration S: [id number] VALENTE DEE MD Dec 07, 2024 13:02
--- NOTE | 2024-12-07 14:49 | DVHPN2 ---
Subjective The patient is seen and examined at bedside. Still not able to tolerate tube feeding. Patient tolerated clear liquid diet. Reviewed: Care Plan, H&P, Labs, Medications, Previous Orders, Radiology, Other (Consultants) Changes from previous H/P or p: No Changes General: Per HPI Objective Vitals Vital Signs Date Time Temp Pulse Resp B/P (MAP) Pulse Ox O2 Delivery O2 Flow Rate FiO2 12/07/24 14:11 85 12/07/24 14:11 28 97 Room Air* 0 21 12/07/24 13:00 98.0 141/62 (88) 98.0 Intake/Output Intake and Output 12/07/24 07:00 Intake Total 900 ml Output Total 1500 ml Balance -600 ml Intake Oral 900 ml Output Urine Total 1500 ml Drainage Total 0 ml # Bowel Movements 2 General Appearance: Alert, Oriented X3, Cooperative, mild distress, Other HEENT: Atraumatic, PERRLA, Other (Tracheostomy, size five Shiley) Neck: Other (Tracheostomy) Lungs: Clear to auscultation, Normal air movement, Other Cardiovascular: Normal S1, Normal S2, Other Abdomen: Other Extremities: Normal pulses Neuro: Cranial nerves 3-12 NL, Other Skin: Dry, Intact, Wounds, Other Psych/Mental Status: Other Medications Current Medications Medications Dose Ordered Sig/Wally Route Start Time Stop Time Status Last Admin Dose Admin Ondansetron HCl 4 mg Q4HP PRN IV 10/04/24 11:45 Morphine Sulfate 2 mg Q4HPRN PRN IV 10/04/24 11:45 Cancel Morphine Sulfate 2 mg Q30M PRN IV 10/04/24 11:45 Cancel Lorazepam 50 mg/ Sodium Chloride 50 ml @ 1 mls/hr Q24H IV 10/04/24 18:15 Cancel Amino Acids 0 ml @ 0 mls/hr PER PHARMACY IV 10/05/24 14:30 UNV Meropenem 50 ml @ 17 mls/hr Q12HR IV 10/07/24 10:00 UNV Levalbuterol HCl 0.625 mg Q6HR NEB 10/13/24 12:00 12/07/24 11:19 0.625 MG Ipratropium [place] 0.5 mg Q6HR NEB 10/13/24 12:00 12/07/24 11:19 0.5 MG Morphine Sulfate 2 mg Q4HPRN PRN IV 10/21/24 11:30 11/10/24 05:15 2 MG Pantoprazole Sodium 50 ml @ 0 mls/hr Q0M IV 10/28/24 16:15 Cancel Sodium Chloride 10 ml QSHIFT@10,22 IV 10/31/24 22:00 12/07/24 09:30 10 ML Acetaminophen/ Hydrocodone Bitart 1 tab Q4HPRN PRN PO 11/06/24 09:15 Labetalol HCl 10 mg Q2HPRN PRN IV 11/12/24 17:00 12/02/24 15:22 10 MG Lorazepam 1 mg Q4HP PRN IV 11/14/24 16:15 11/28/24 05:31 1 MG Albuterol 2.5 mg Q3HPRN PRN NEB 11/18/24 10:30 12/01/24 18:13 2.5 MG Nicotine 1 patch DAILY TD 11/26/24 10:00 12/07/24 09:45 1 PATCH Sucralfate 1 gm TID@0600,1130,2200 PO 11/27/24 09:15 12/07/24 11:11 1 GM Pantoprazole Sodium 40 mg BID IV 11/28/24 10:00 12/07/24 09:30 40 MG Enteral Nutritional Formula 240 ml TIDWM PO 11/28/24 12:00 12/07/24 12:00 240 ML Hydralazine HCl 50 mg Q12H PO 11/30/24 18:00 12/07/24 05:32 50 MG Nifedipine 120 mg DAILY PO 12/02/24 10:00 12/07/24 09:50 120 MG Multivitamins/ Minerals 1 tab DAILY PO 12/03/24 10:00 12/07/24 09:30 1 TAB Amino Acid Protein 30 ml DAILY PO 12/03/24 08:00 12/06/24 10:14 30 ML Labetalol HCl 200 mg Q12HR PO 12/03/24 10:00 12/07/24 09:31 200 MG Lactulose 30 ml Q12HP PRN PO 12/03/24 09:00 Laboratory Results Laboratory Tests 12/07/24 04:48 Chemistry Test 12/07/24 04:48 Albumin 3.6 g/dL (3.2-4.8) Calcium Level 9.9 mg/dL (8.7-10.4) Total Protein 7.4 g/dL (5.7-8.2) LFT Test 12/07/24 04:48 Alanine Aminotransferase (ALT) 19 U/L (7-40) Alkaline Phosphatase 113 U/L (46-116) Aspartate Amino Transferase (AST) 20 U/L (13-40) Total Bilirubin 0.6 mg/dL (0.2-1.0) Urinalysis Test 10/05/24 15:05 10/26/24 20:33 11/07/24 12:40 Urine Mucus Few (None Seen) Urine Color Light-yellow (Yellow) Urine Clarity Clear (Clear) Urine pH 7.0 (5.0-9.0) Urine Specific [place] 1.014 (1.001-1.035) Urine Protein 1+ (Negative) H Urine Ketones Negative (Negative) Urine Blood 1+ /uL (Negative) H Urine Nitrite Negative (Negative) Urine Bilirubin Negative (Negative) Urine Urobilinogen Normal mg/dL (Negative) Urine Leukocyte Esterase Negative /uL (Negative) Urine RBC 1 /hpf (0 - 3) Urine Microscopic WBC 3 /HPF (0-3) Urine Squamous Epithelial Cells None seen /hpf (<5) Urine Bacteria Few /hpf (None Seen) H Urine Glucose Normal mg/dL (Normal) Urine Creatinine 64.63 mg/dL (30.0-125.0) Urine Protein/Creatinine Ratio 3.11 Urine Sodium 34 mmol/L (40-220) L Urine Total Protein 200.7 mg/dL (1-14) H Microbiology Microbiology Date/Time Source Procedure Growth Status 11/20/24 09:56 Sputum Gram Stain - Final Complete 11/20/24 09:56 Sputum Respiratory Culture - Final Complete 11/20/24 08:16 Blood Blood Culture - Final NO GROWTH AFTER 5 DAYS OF INCUBATION. Complete 11/10/24 22:44 Voided Urine Urine Culture - Final Complete 10/18/24 09:21 Pleural Fluid Gram Stain - Final Complete 10/18/24 09:21 Pleural Fluid Body Fluid Culture - Final Complete 10/04/24 17:10 Nose MRSA Screen - Final Complete Labs and/or images reviewed: Labs reviewed by me Assessment/Plan Assessment/Plan -severe septic shock -pneumoperitoneum secondary to perforated gastric ulcer -acute kidney injury, hemodynamically mediated, probable VMN -acute hypoxic respiratory failure -shock liver -nicotine dependence -history of CVA -right upper extremity DVT -multifocal pneumonia, probable Gram-positive/Gram-negative etiology -anemia secondary to nutrition, renal failure -bilateral pleural effusions -small left pneumothorax -Failure of ventilator weaning, status post tracheostomy -fungemia Plan: Continuing current management. -antihypertensive regimen: Continue -continue Protonix 40 mg b.i.d., Carafate a.c. HS -physical therapy, out of bed as tolerated -repeat labs in am This medical document was created using an electronic medical record system with [employer] dictation system. Although this document has been carefully reviewed, there may still be some phonetic and typographical errors. These areas are purely typographical due to imperfections of the software programs, and do not reflect any compromise in the patient's medical care. Plan discussed with: Patient Date of Service: Dec 07, 2024 Billing Provider: HOLLAND GRANT MD Common Visit Codes: [id number] INP/OBS CARE(HIGH) HOLLAND GRANT MD Dec 07, 2024 14:49
[2024-12-08] VITALS (8 sets, daily range): BP systolic 126–160; BP diastolic 71–86; PULSE 84–98; RESP 16–84; TEMP 97.6–98.2; O2SAT 96–100
[2024-12-08 08:09] LABS: Hematocrit 27.4 % (41.0-53.0); Hemoglobin 9.0 g/dL (13.5-17.5); Mean Corpuscular Hemoglobin 27.8 pg (28.0-32.0); Mean Corpuscular Volume 85.3 fL (80.0-100.0); Nucleated Red Blood Cells % 0.0 %
[2024-12-08 08:11] LABS: Alanine Aminotransferase 16 U/L (7-40); Albumin 3.6 g/dL (3.2-4.8); Alkaline Phosphatase 109 U/L (46-116); Anion Gap 8 (5-15); BUN/Creatinine Ratio 19.7 (10.0-20.0); Calcium 9.9 mg/dL (8.7-10.4); Glucose 97 mg/dL (74-106); Potassium 4.2 mmol/L (3.5-5.1); Sodium 137 mmol/L (136-145); Total Protein 7.4 g/dL (5.7-8.2)
[2024-12-08 08:12] LABS: Bilirubin, Total 0.4 mg/dL (0.2-1.0); Blood Urea Nitrogen 23 mg/dL (9-23); Carbon Dioxide 31 mmol/L (20-31); Chloride 98 mmol/L (98-107)
[2024-12-08] MEDS ORDERED: IPRATROPIUM BROM 0.5 MG/2.5ML INH SOL NEB PRN ×2 (09:30→09:45)
[2024-12-08] MEDS ORDERED: LEVALBUTEROL HCL 1.25 MG/3 ML NEB NEB PRN ×2 (09:30→09:45)
[2024-12-08] MEDS ORDERED: HYDR25TA87 PO (10:19)
[2024-12-08] MEDS ORDERED: SUCR1TAB31 OR (10:19)
[2024-12-08] MEDS ORDERED: NIFE1TAB30 PO (10:19)
[2024-12-08] MEDS ORDERED: LABE200T10 PO (10:19)
[2024-12-08] MEDS ORDERED: PANT40TA2 PO (10:19)
--- NOTE | 2024-12-08 10:37 | DVHDS2 ---
Discharge Summary Date of Admission October 04, 2024 at 11:33 Date of Discharge: Dec 08, 2024 Admitting Diagnosis Perforated gastric ulcer Labs/Diagnostic Data: Laboratory Results Test 12/08/24 06:30 11/30/24 08:14 11/28/24 02:53 11/27/24 19:30 White Blood Count 7.7 10^3/uL (4.4-10.8) Red Blood Count 3.22 10^6/uL (4.5-5.90) Hemoglobin 9.0 g/dL (13.5-17.5) Hematocrit 27.4 % (41.0-53.0) Mean Corpuscular Volume 85.3 fL (80.0-100.0) Mean Corpuscular Hemoglobin 27.8 pg (28.0-32.0) Mean Corpuscular Hemoglobin Concent 32.7 g/dL (32.0-36.0) Red Cell Distribution Width 18.2 % (11.8-14.3) Platelet Count 474 10^3/uL (140-450) Mean Platelet Volume 7.1 fL (6.9-10.8) Neutrophils (%) (Auto) 63.2 % (37.0-80.0) Lymphocytes (%) (Auto) 22.4 % (10.0-50.0) Monocytes (%) (Auto) 7.6 % (0.0-12.0) Eosinophils (%) (Auto) 5.1 % (0.0-7.0) Basophils (%) (Auto) 1.7 % (0.0-2.0) Neutrophils # (Auto) 4.9 10 ^3/uL (1.6-8.6) Lymphocytes # (Auto) 1.7 10 ^3/uL (0.4-5.4) Monocytes # (Auto) 0.6 10 ^3/uL (0-1.3) Eosinophils # (Auto) 0.4 10 ^3/uL (0-0.8) Basophils # (Auto) 0.1 10 ^3/uL (0-0.2) Nucleated Red Blood Cells 0.0 % Sodium Level 137 mmol/L (136-145) Potassium Level 4.2 mmol/L (3.5-5.1) Chloride Level 98 mmol/L (98-107) Carbon Dioxide Level 31 mmol/L (20-31) Anion Gap 8 (5-15) Blood Urea Nitrogen 23 mg/dL (9-23) Creatinine 1.17 mg/dL (0.700-1.30) Glomerular Filtration Rate Calc 75 mL/min (>90) BUN/Creatinine Ratio 19.7 (10.0-20.0) Serum Glucose 97 mg/dL (74-106) Calcium Level 9.9 mg/dL (8.7-10.4) Total Bilirubin 0.4 mg/dL (0.2-1.0) Aspartate Amino Transferase (AST) 19 U/L (13-40) Alanine Aminotransferase (ALT) 16 U/L (7-40) Alkaline Phosphatase 109 U/L (46-116) Total Protein 7.4 g/dL (5.7-8.2) Albumin 3.6 g/dL (3.2-4.8) Platelet Estimate Adequate Anisocytosis (manual) Slight Ovalocytes Few Magnesium Level 1.8 mg/dL (1.6-2.6) Iron Level 35 ug/dL (65-175) Total Iron Binding Capacity 191 ug/dL (250-425) Percent Iron Saturation 18.3 % (20-55) Stool Occult Blood Positive (Negative) Stool Occult Blood Sample #2 (Negative) Stool Occult Blood Sample #3 (Negative) Test 11/19/24 08:07 11/18/24 16:48 11/18/24 14:39 11/17/24 13:30 Blood Gas Specimen Type Arterial Blood Gas Sample Site Left radial Blood Gas Patient Temperature 37.0 Arterial Blood Date Drawn [id number] Arterial Blood pH 7.424 (7.350-7.450) Arterial Blood Partial Pressure CO2 30.4 mmHg (35.0-48.0) Arterial Blood Partial Pressure O2 93.3 mmHg (83.0-108.0) Arterial Blood HCO3 19.5 mmol/L (21.0-28.0) Arterial Blood Oxygen Saturation 96.2 % (94.0-98.0) Arterial Blood Base Excess -4.1 mmol/L (-2.0-3.0) Arterial Blood Oxyhemoglobin 95.4 % (94.0-98.0) Arterial Blood Carboxyhemoglobin 0.2 % (0.5-1.5) Arterial Blood Methemoglobin 0.6 % (0.0-1.5) Ke Test Modified Blood Gas Total Hemoglobin 10.10 g/dL (13.5-17.5) Blood Gas Set Respiration Rate 18.0 Blood Gas Modality Vent - ac FiO2 % 50.0 Blood Gas Tidal Volume 450.0 Blood Gas PEEP or CPAP 8.0 POC Glucose 120 mg/dl (70-106) Blood Gas Liter Flow 12.00 Blood Gas Spontaneous Rate 28 Ferritin 266.7 ng/mL (22-322) Test 11/09/24 02:50 11/07/24 12:40 11/07/24 09:52 11/07/24 03:08 Polychromasia Slight Direct Bilirubin 0.8 mg/dL (<0.3) Urine Creatinine 64.63 mg/dL (30.0-125.0) Urine Protein/Creatinine Ratio 3.11 Urine Sodium 34 mmol/L (40-220) Urine Total Protein 200.7 mg/dL (1-14) Prothrombin Time 12.3 sec (9.3-11.8) Prothrombin Time INR 1.18 (0.9-1.15) Activated Partial Thromboplast Time 32.6 SEC (24.5-34.5) Differential Total Cells Counted 100.0 (100) Neutrophils % (Manual) 73 (37.0-80.0) Band Neutrophils % (Manual) 1 Lymphocytes % (Manual) 15 (10.0-50.0) Monocytes % (Manual) 8 (0-12) Eosinophils % (Manual) 0 (0-7) Basophils % (Manual) 0 (0.0-2.0) Metamyelocytes % (manual) 1 Myelocytes % (Manual) 0 Promyelocytes % (Manual) 0 Blast Cells % (Manual) 2 Reactive Lymphocytes 0 Phosphorus Level 4.2 mg/dL (2.4-5.1) Random Vancomycin Level 13.1 ug/mL (5-10) Test 11/06/24 08:29 10/29/24 03:00 10/26/24 20:33 10/26/24 03:20 Blood Gas Pressure Support 8 Triglycerides Level 114 mg/dL (< 150) Urine Color Light-yellow (Yellow) Urine Clarity Clear (Clear) Urine pH 7.0 (5.0-9.0) Urine Specific [place] 1.014 (1.001-1.035) Urine Protein 1+ (Negative) Urine Ketones Negative (Negative) Urine Blood 1+ /uL (Negative) Urine Nitrite Negative (Negative) Urine Bilirubin Negative (Negative) Urine Urobilinogen Normal mg/dL (Negative) Urine Leukocyte Esterase Negative /uL (Negative) Urine RBC 1 /hpf (0 - 3) Urine Microscopic WBC 3 /HPF (0-3) Urine Squamous Epithelial Cells None seen /hpf (<5) Urine Bacteria Few /hpf (None Seen) Urine Glucose Normal mg/dL (Normal) Macrocytosis Slight Test 10/24/24 03:19 10/23/24 02:45 10/20/24 03:23 10/18/24 09:21 Large Platelets Few Giant Platelets Few Stomatocytes Moderate Clumped Platelets Few Smudge Cells 1 /100 WBC Body Fluid Glucose 74 mg/dL (.) Body Fluid Total Protein 3.2 g/dL (.) Body Fluid Lactate Dehydrogenase 881 IU/L (.) Test 10/17/24 10:02 10/16/24 06:34 10/14/24 11:50 10/13/24 04:00 Hepatitis A IgM Antibody Negative Hepatitis B Surface Antigen Negative (Negative) Hepatitis B Core IgM Antibody Negative (Negative) Hepatitis C Antibody Negative (Negative) Blood Gas Critical Value Read Back Yes Blood Gas Notified Whom Rolanda stanley np Blood Gas Notified Time [id number] Blood Gas Notified By coffee urn attendant larissa ching Body Fluid Source Pleural fluid Body Fluid pH 8.0 Body Fluid WBC (Manual) 1303 CUMM (0-200) Body Fluid RBC (Manual) 76265 CUMM (0-2000) Body Fluid Mononuclear Cells 5 % Body Fluid Polymorphonuclear Cells 95 % (0-25) B-Type Natriuretic Peptide 93.62 pg/mL (0-100) Test 10/12/24 02:27 10/10/24 03:15 10/08/24 06:46 10/07/24 03:10 Ammonia < 10 umol/L (11-32) Lipase 58 U/L (12-53) Lactic Acid Level 0.8 mmol/L (0.4-2.0) Specimen Drawn By Marta range operator Phospholipids Level 106 mg/dL (127-261) Test 10/05/24 15:05 10/05/24 03:46 10/04/24 17:00 10/04/24 08:05 Urine Mucus Few (None Seen) Urine Opiates Screen Neg (NEGATIVE) Urine Fentanyl Screen Pos (NEGATIVE) Urine Barbiturates Screen Neg (NEGATIVE) Urine Phencyclidine Screen Neg (NEGATIVE) Urine Amphetamines Screen Neg (NEGATIVE) Urine Benzodiazepines Screen Pos (NEGATIVE) Urine Cocaine Screen Neg (NEGATIVE) Urine Cannabinoids Screen Neg (NEGATIVE) Novelty Cells Moderate Microcytosis Slight Reticulocyte Count (auto) 5.51 % (0.5-1.5) Hemoglobin A1c 5.6 % A1C (<5.7) Troponin I High Sensitivity 359 ng/L (</=54) Test 10/04/24 07:01 Red Blood Cell Morphology Normal Other Laboratory Tests 12/08/24 06:30 Brief Hx & Hospital Course: History of Present Illness Jossue Perez JR is a 48-year-old male with past medical history of hypertension, hyperlipidemia, CVA in August of 2023 with no deficits, memory loss, and left knee surgery who presents to the ED with syncope x1 week. Per patient's Anastasia at the bedside she states that the patient has been having the will to live also decreased appetite also on antidepressants. She reports that he has not have had any hematemesis or melena or hematochezia. She states that patient does smoke, does not drink, and does not use drugs. Upon examination patient intubated and on vent. Unable to obtain further history from patient. Course of hospitalization: Patient had prolonged hospitalization given to multiple medical events. Patient underwent open laparotomy for repair of 6 cm pyloric ulcer. Patient was progressively well, in approximately one week later developed acute cholecystitis. Patient was treated with cholecystostomy tube placement by Interventional Radiology. He remained in septic shock, with prolonged ventilator requirements. Patient subsequently underwent tracheostomy placement. Patient also developed fungemia, probably secondary to extended use of TPN. Patient also went into acute renal failure, requiring hemodialysis. The patient had dramatic improvement, subsequently being weaned off mechanical ventilation, no longer requiring hemodialysis, in addition to the patient tolerating oral intake without any issues. Patient also was decannulated from his tracheostomy over the weekend. Currently he is on room air with no respiratory distress. Patient has been able to ambulate greater than 60 ft with a walker. Patient is able to control his bowel and bladder. Cholecystostomy tube was also removed by General surgery over the weekend. Long discussion was made with the patient's who is agreeable that he can be discharged home with home health services and outpatient physical therapy. Patient will have his wounds assessed at home, medications managed, as well as assessment of his vital signs performed by home health services. Patient will follow up with his PCP in 1-2 weeks, Nicolette Pope NP. He will also follow up with Dr. Arelis Stoddard in 2-3 weeks. Patient will be continued on current antihypertensive regimen, as well as PPI and Carafate. Patient is agreeable with discharge plan. All questions answered. Physical examination General: Alert and Oriented x3. No acute distress. Well-nourished. Cachectic Eyes: EOMI. Anicteric. HENT: Moist mucous membranes. Lungs: Clear to auscultation bilaterally. No accessory muscle use. Cardiovascular: Regular rate and rhythm. No murmur. No JVD. Abdomen: Soft, non-tender and non-distended. No palpable masses. Extremities: No edema. Non-tender. Skin: No rashes or lesions. Warm. Neurologic: No focal neurological deficits. CN II-XII grossly intact, but not individually tested. Psychiatric: Cooperative. Appropriate mood and affect. Total time spent with patient discussing and formulating plan of care: 35 minutes. This medical document was created using an electronic medical record system with [employer] dictation system. Although this document has been carefully reviewed, there may still be some phonetic and typographical errors. These areas are purely typographical due to imperfections of the software programs, and do not reflect any compromise in the patient's medical care. Consults/Reason for consult Nephrology: Acute renal failure General surgery: Tracheostomy, perforated gastric ulcer Neurology: Altered mental status Gastroenterology: GI bleed Infectious disease: Fungemia Condition at Discharge: Critical Final Diagnosis/Problems List Septic shock secondary to perforated pyloric ulcer Secondary diagnosis: -pneumoperitoneum secondary to perforated gastric ulcer -acute kidney injury, hemodynamically mediated, probable VMN -acute hypoxic respiratory failure -shock liver -nicotine dependence -history of CVA -right upper extremity DVT -multifocal pneumonia, probable Gram-positive/Gram-negative etiology -anemia secondary to nutrition, renal failure -bilateral pleural effusions -small left pneumothorax -Failure of ventilator weaning, status post tracheostomy -fungemia Discharge Disposition: Home with Health Services Discharge Instruct/Medications Diet: Cardiac 2g Na,low cholest Activity: No Restrictions, As Tolerated Follow Up/Referral: Follow up with PCP, Nicolette Pope NP in 1-2 weeks Follow up with Dr. Arelis Stoddard in 2-3 weeks Medications: Labetalol 200 mg p.o. b.i.d. Nifedipine XL 120 mg p.o. daily Hydralazine 25 mg p.o. b.i.d. Carafate one tab a.c. HS Protonix 40 mg p.o. b.i.d. Refer to medication reconciliation for remainder of home medications Scheduled Aspirin (Aspir-Low), 81 MG PO DAILY Atorvastatin Calcium (Atorvastatin Calcium), 20 MG PO HS Escitalopram Oxalate (Escitalopram Oxalate), 1 TAB PO DAILY, (Reported) Hydralazine HCl (Hydralazine HCl), 25 MG PO BID Labetalol HCl (Labetalol HCl), 200 MG PO BID Lisinopril (Lisinopril), 1 TAB PO DAILY, (Reported) Nifedipine (Nifedipine Er), 30 MG PO BID Nifedipine (Nifedipine Er), 2 TAB PO DAILY Pantoprazole Sodium Sesquihydr (Protonix), 40 MG PO BID Sucralfate (Carafate), 1 GM OR ACHS 36 Discharge Statement: "Patient was advised to return to the ER or call 911 if any headaches, dizziness, shortness of breath, chest pain, abdominal pain, bleeding, fevers, or worsening of medical condition. Patient was counseled about treatment plan, medications, possible side effects, patientverbalized understanding. All questions were answered to the best of my ability. This discharge took greater then 30 minutes in planning, reviewing documentation, counseling the patient, and discussing with other team members." ASSESSMENT ASSESSMENT Assessment Septic shock secondary to perforated pyloric ulcer Date of Service: Dec 08, 2024 Billing Provider: CHEYENNE STANLEY NP Common Visit Codes: 42873-VTY/OBS DISCH DAY >30min CHEYENNE STANLEY NP Dec 08, 2024 10:37
--- NOTE | 2024-12-08 12:43 | DVHPN2 ---
Progress Note - Dictate Date Seen: Dec 08, 2024 Has the PT tested + for MRSA If YES, has PT been informed?: No Medical Necessity Reason Pt with a Central, PICC or Fol: Yes The following are medically ne: Central Line, Gómez Catheter Reason for gómez catheter: Strict I&O vital signs Vital Sign Date Time Temp Pulse Resp B/P (MAP) Pulse Ox O2 Delivery O2 Flow Rate FiO2 12/08/24 12:33 84 139/82 12/08/24 12:24 84 12/08/24 09:00 97.8 97 97.8 12/08/24 08:00 Room Air* 0 21 Total Intake and Output 12/07/24 12/07/24 12/08/24 15:00 23:00 07:00 Intake Total 832 ml 800 ml Output Total 550 ml 1200 ml Balance 282 ml -400 ml medications Current Medications Medications Dose Ordered Sig/Wally Route Start Time Stop Time Status Last Admin Dose Admin Ondansetron HCl 4 mg Q4HP PRN IV 10/04/24 11:45 Morphine Sulfate 2 mg Q4HPRN PRN IV 10/04/24 11:45 Cancel Morphine Sulfate 2 mg Q30M PRN IV 10/04/24 11:45 Cancel Lorazepam 50 mg/ Sodium Chloride 50 ml @ 1 mls/hr Q24H IV 10/04/24 18:15 Cancel Amino Acids 0 ml @ 0 mls/hr PER PHARMACY IV 10/05/24 14:30 UNV Meropenem 50 ml @ 17 mls/hr Q12HR IV 10/07/24 10:00 UNV Morphine Sulfate 2 mg Q4HPRN PRN IV 10/21/24 11:30 11/10/24 05:15 2 MG Pantoprazole Sodium 50 ml @ 0 mls/hr Q0M IV 10/28/24 16:15 Cancel Sodium Chloride 10 ml QSHIFT@10,22 IV 10/31/24 22:00 12/07/24 21:34 10 ML Acetaminophen/ Hydrocodone Bitart 1 tab Q4HPRN PRN PO 11/06/24 09:15 Labetalol HCl 10 mg Q2HPRN PRN IV 11/12/24 17:00 12/02/24 15:22 10 MG Lorazepam 1 mg Q4HP PRN IV 11/14/24 16:15 11/28/24 05:31 1 MG Nicotine 1 patch DAILY TD 11/26/24 10:00 12/08/24 08:25 1 PATCH Sucralfate 1 gm TID@0600,1130,2200 PO 11/27/24 09:15 12/08/24 11:40 1 GM Enteral Nutritional Formula 240 ml TIDWM PO 11/28/24 12:00 12/07/24 18:00 240 ML Hydralazine HCl 50 mg Q12H PO 11/30/24 18:00 12/08/24 05:14 50 MG Nifedipine 120 mg DAILY PO 12/02/24 10:00 12/08/24 08:26 120 MG Multivitamins/ Minerals 1 tab DAILY PO 12/03/24 10:00 12/08/24 08:25 1 TAB Amino Acid Protein 30 ml DAILY PO 12/03/24 08:00 12/06/24 10:14 30 ML Labetalol HCl 200 mg Q12HR PO 12/03/24 10:00 12/08/24 08:27 200 MG Lactulose 30 ml Q12HP PRN PO 12/03/24 09:00 Pantoprazole Sodium 40 mg BID@0600,1700 PO 12/08/24 17:00 Ipratropium [place] 0.5 mg Q6HPRN PRN NEB 12/08/24 09:45 Levalbuterol HCl 0.625 mg Q6HPRN PRN NEB 12/08/24 09:45 laboratory and microbiology Laboratory Tests 12/08/24 06:30 Test 12/08/24 06:30 Range/Units Serum Glucose 97 74-106 mg/dL Assessment/Plan Impression Acute hypoxemic respiratory failure S/p tracheostomy Perforated viscus Septic shock Smoker Patient seen and examined in ANNIE Events S/p tracheostomy No new complaints Labs and imaging reviewed ABG reviewed Management Supplemental oxygen as needed trache care per RT completed abx afebrile Bronchodilators Monitor renal function HD per nephrology Management deferred Monitor electrolytes Supplement as needed Nutritional support Continue ambulation F/u physical therapy DVT prophylaxis ok to dc from pulm standpoint f/up with pulm clinic Dietary Evaluation Review Comments: 1. Continue TPN to meet at least 75% estimated needs 2. Continue current POC Expected Outcomes/Goals: FU 2-3 days to meet adequate energy & protein within 7 days of NPO Protein Calorie Malnutrition: Severe (rn) Plan discussed with: Patient CC Plasma Assessment Blood Product Administration S: [id number] VALENTE DEE MD Dec 08, 2024 12:43
[2024-12-08] MEDS ORDERED: PANTOPRAZOLE 40 MG TAB PO SCH (17:00)
== END 2024-12-08 15:20 | disposition home health service (06) | DRG 3 ==
LOC: EDBD 06:17 → ER 06:17 → EDUNIT# 06:17 → OVERFLOW 11:33 → ICU WEST 17:03 → DOU IN ICU 11-29 14:46 → EAST 12-07 21:00
PROVIDERS: ADMIT Nurse Practitioner Acute Care; ATTEND Nurse Practitioner Acute Care
PROC: 02HV33Z Insertion of Infusion Device into Superior Vena Cava, Percutaneous Approach (ICD-10-PCS; 2024-10-04)
PROC: 5A1955Z Respiratory Ventilation, Greater than 96 Consecutive Hours (ICD-10-PCS; 2024-10-04)
PROC: 30233N1 Transfusion of Nonautologous Red Blood Cells into Peripheral Vein, Percutaneous Approach (ICD-10-PCS; 2024-10-04)
PROC: 0DQ70ZZ Repair Stomach, Pylorus, Open Approach (ICD-10-PCS; 2024-10-04)
PROC: 0DB70ZX Excision of Stomach, Pylorus, Open Approach, Diagnostic (ICD-10-PCS; 2024-10-04)
PROC: 0BH17EZ Insertion of Endotracheal Airway into Trachea, Via Natural or Artificial Opening (ICD-10-PCS; principal; 2024-10-04 14:39)
PROC: 30233K1 Transfusion of Nonautologous Frozen Plasma into Peripheral Vein, Percutaneous Approach (ICD-10-PCS; 2024-10-05)
PROC: 02HV33Z Insertion of Infusion Device into Superior Vena Cava, Percutaneous Approach (ICD-10-PCS; 2024-10-05)
PROC: 0F9430Z Drainage of Gallbladder with Drainage Device, Percutaneous Approach (ICD-10-PCS; 2024-10-10)
PROC: 0W993ZX Drainage of Right Pleural Cavity, Percutaneous Approach, Diagnostic (ICD-10-PCS; 2024-10-14)
PROC: 05HM33Z Insertion of Infusion Device into Right Internal Jugular Vein, Percutaneous Approach (ICD-10-PCS; 2024-10-15)
PROC: 0BCB8ZZ Extirpation of Matter from Left Lower Lobe Bronchus, Via Natural or Artificial Opening Endoscopic (ICD-10-PCS; 2024-10-16)
PROC: 0BC68ZZ Extirpation of Matter from Right Lower Lobe Bronchus, Via Natural or Artificial Opening Endoscopic (ICD-10-PCS; 2024-10-16)
PROC: 06HY33Z Insertion of Infusion Device into Lower Vein, Percutaneous Approach (ICD-10-PCS; 2024-10-16)
PROC: B54CZZA Ultrasonography of Left Lower Extremity Veins, Guidance (ICD-10-PCS; 2024-10-16)
PROC: 5A1D70Z Performance of Urinary Filtration, Intermittent, Less than 6 Hours Per Day (ICD-10-PCS; 2024-10-16)
PROC: 5A1D70Z Performance of Urinary Filtration, Intermittent, Less than 6 Hours Per Day (ICD-10-PCS; 2024-10-17)
PROC: 0W993ZX Drainage of Right Pleural Cavity, Percutaneous Approach, Diagnostic (ICD-10-PCS; 2024-10-18)
PROC: 5A1D70Z Performance of Urinary Filtration, Intermittent, Less than 6 Hours Per Day (ICD-10-PCS; 2024-10-18)
PROC: 0WH903Z Insertion of Infusion Device into Right Pleural Cavity, Open Approach (ICD-10-PCS; 2024-10-19)
PROC: 5A1D70Z Performance of Urinary Filtration, Intermittent, Less than 6 Hours Per Day (ICD-10-PCS; 2024-10-21)
PROC: 5A1D70Z Performance of Urinary Filtration, Intermittent, Less than 6 Hours Per Day (ICD-10-PCS; 2024-10-23)
PROC: 5A1D70Z Performance of Urinary Filtration, Intermittent, Less than 6 Hours Per Day (ICD-10-PCS; 2024-10-26)
PROC: 06HY33Z Insertion of Infusion Device into Lower Vein, Percutaneous Approach (ICD-10-PCS; 2024-10-27)
PROC: 0B110F4 Bypass Trachea to Cutaneous with Tracheostomy Device, Open Approach (ICD-10-PCS; 2024-10-27)
PROC: 5A1D70Z Performance of Urinary Filtration, Intermittent, Less than 6 Hours Per Day (ICD-10-PCS; 2024-10-27)
PROC: 5A1D70Z Performance of Urinary Filtration, Intermittent, Less than 6 Hours Per Day (ICD-10-PCS; 2024-10-28)
PROC: 5A1D70Z Performance of Urinary Filtration, Intermittent, Less than 6 Hours Per Day (ICD-10-PCS; 2024-10-29)
PROC: 5A1D70Z Performance of Urinary Filtration, Intermittent, Less than 6 Hours Per Day (ICD-10-PCS; 2024-10-30)
PROC: 02HV33Z Insertion of Infusion Device into Superior Vena Cava, Percutaneous Approach (ICD-10-PCS; 2024-10-31)
PROC: B548ZZA Ultrasonography of Superior Vena Cava, Guidance (ICD-10-PCS; 2024-10-31)
PROC: 5A1D70Z Performance of Urinary Filtration, Intermittent, Less than 6 Hours Per Day (ICD-10-PCS; 2024-11-03)
PROC: 05H933Z Insertion of Infusion Device into Right Brachial Vein, Percutaneous Approach (ICD-10-PCS; 2024-11-04)
PROC: B54MZZA Ultrasonography of Right Upper Extremity Veins, Guidance (ICD-10-PCS; 2024-11-04)
PROC: 05HA33Z Insertion of Infusion Device into Left Brachial Vein, Percutaneous Approach (ICD-10-PCS; 2024-11-09)
PROC: B54NZZA Ultrasonography of Left Upper Extremity Veins, Guidance (ICD-10-PCS; 2024-11-09)
PROC: 05HA33Z Insertion of Infusion Device into Left Brachial Vein, Percutaneous Approach (ICD-10-PCS; 2024-11-19)
PROC: B54NZZA Ultrasonography of Left Upper Extremity Veins, Guidance (ICD-10-PCS; 2024-11-19)
DX: A41.9 Sepsis, unspecified organism (principal); E43 Unspecified severe protein-calorie malnutrition; K65.9 Peritonitis, unspecified; G93.41 Metabolic encephalopathy; J96.01 Acute respiratory failure with hypoxia; N17.0 Acute kidney failure with tubular necrosis; R65.21 Severe sepsis with septic shock; K25.6 Chronic or unspecified gastric ulcer with both hemorrhage and perforation; K72.00 Acute and subacute hepatic failure without coma; J96.02 Acute respiratory failure with hypercapnia; J15.69 Pneumonia due to other Gram-negative bacteria; K25.5 Chronic or unspecified gastric ulcer with perforation; J86.9 Pyothorax without fistula; I21.A1 Myocardial infarction type 2; J15.9 Unspecified bacterial pneumonia; D62 Acute posthemorrhagic anemia; E87.1 Hypo-osmolality and hyponatremia; R18.8 Other ascites; J90 Pleural effusion, not elsewhere classified; G72.81 Critical illness myopathy; E87.4 Mixed disorder of acid-base balance; B49 Unspecified mycosis; E87.0 Hyperosmolality and hypernatremia; G93.1 Anoxic brain damage, not elsewhere classified; K80.00 Calculus of gallbladder with acute cholecystitis without obstruction; Z68.43 Body mass index [BMI] 50.0-59.9, adult; I10 Essential (primary) hypertension; K52.9 Noninfective gastroenteritis and colitis, unspecified; F17.210 Nicotine dependence, cigarettes, uncomplicated; E83.42 Hypomagnesemia; F10.10 Alcohol abuse, uncomplicated; T50.995A Adverse effect of other drugs, medicaments and biological substances, initial encounter; R73.9 Hyperglycemia, unspecified; E87.70 Fluid overload, unspecified; E87.6 Hypokalemia; E78.5 Hyperlipidemia, unspecified; D63.8 Anemia in other chronic diseases classified elsewhere; D75.89 Other specified diseases of blood and blood-forming organs; J43.9 Emphysema, unspecified; I16.0 Hypertensive urgency; E86.0 Dehydration; D69.6 Thrombocytopenia, unspecified; K59.00 Constipation, unspecified; R62.7 Adult failure to thrive; Z79.82 Long term (current) use of aspirin; Z79.899 Other long term (current) drug therapy; Z86.73 Personal history of transient ischemic attack (TIA), and cerebral infarction without residual deficits; Z83.3 Family history of diabetes mellitus; Y92.238 Other place in hospital as the place of occurrence of the external cause; Y90.9 Presence of alcohol in blood, level not specified
CPT/HCPCS: 31500; 32555; 36415; 36556; 36569; 36600; 47532; 70450; 70551; 71045; 71250; 71260; 74018; 74176; 74177; 74246; 74250; 76604; 76705; 76937; 76942; 78226; 80048; 80053; 80074; 80076; 80202; 80307; 81001; 82140; 82270; 82570; 82728; 82805; 82962; 83036; 83540; 83550; 83605; 83690; 83735; 83880; 83986; 84100; 84132; 84156; 84300; 84311; 84478; 84484; 85007; 85014; 85018; 85025; 85027; 85045; 85610; 85730; 86850; 86900; 86901; 86920; 87040; 87070; 87075; 87077; 87081; 87086; 87205; 87340; 89051; 90935; 92610; 93005; 93306; 93925; 93970; 93971; 94002; 94003; 94640; 94667; 94668; 95819; 96365; 96375; 97110; 97116; 97163; 97530; 99152; 99291; 99292; A4344; G0378; J0131; J1335; J1642; J1756; J1815; J2185; J2248; J2250; J2470; J2543; J2704; J3430; J3480; J3490; J7131; P9047; Q9967

== ENCOUNTER 2025-03-11 15:38 | Inpatient (IN) | payer BC ==
[~2025-03-11] VITALS: Ht 172.7 cm; Wt 47.0 kg
[~2025-03-11 15:38] MED LIST changes: -ASPI-543 PO; -ATOR20TA50 PO; -CLOP75TA70 PO; +HYDR25TA87 PO; +LABE200T10 PO; -LISI-275 PO; -LISI20TA56 PO; +NIFE1TAB30 PO; -NIFE1TAB31 PO; +PANT40TA2 PO; +SUCR1TAB31 OR
[2025-03-11 15:48] VITALS: PULSE 81; RESP 20; O2SAT 97
[2025-03-11] MEDS: SODIUM CHLORIDE 0.9% 2,000 ML IV ONE (15:51)
--- NOTE | 2025-03-11 15:57 | ED.PDOC ---
History of Present Illness HPI Comments 49M present to the ER via mother and prior MHx of CVA, COPD, HTN;SHx of Left Knee Sx, Ulcer Sx, ABD Sx and the c/c of /D. Pt arrived to the ER in the car and became unresponsive while exiting the vehicle. Mother reports on the pt being admitted to the ICU in September due from a syncope/ulcer burst in the ABD for which was D/C in December. Mother states that the pt has been refusing to eat and having sever /D for the past 3 days. Pt has a BP of 103/63, Sat of 97% RA and an accucheck of 122. Denies any other symptoms at this time. Denies chills, fever, N/V, SOB, CP. Denies any other associated symptom's, modifiers, or recent injuries or sick contact at this time. Chief Complaint: Diarrhea Time Seen by MD: 16:00 Reviewed Notes: Nurses Notes, Medications, Allergies Allergies: Coded Allergies: NO KNOWN ALLERGIES (Unverified , 08/22/23) Home Meds Active Scripts Hydralazine HCl (Hydralazine HCl) 25 Mg Tab, 25 MG PO BID for 30 Days, #60 TAB Prov:CHEYENNE [employer] PATCHER 12/08/24 Labetalol HCl (Labetalol HCl) 200 Mg Tab, 200 MG PO BID for 30 Days, #60 TAB Prov:CHEYENNE [employer] P[employer]ER 12/08/24 Nifedipine (Nifedipine Er) 60 Mg Tab, 2 TAB PO DAILY, #30 TAB 5 Refills Prov:CHEYENNE [employer] P[employer]ER 12/08/24 Pantoprazole Sodium Sesquihydr (Protonix) 40 Mg Tab, 40 MG PO BID for 30 Days, #60 TAB Prov:CHEYENNE [employer] P[employer]ER 12/08/24 Sucralfate (CARAFATE) 1 Gm Tab, 1 GM OR ACHS for 30 Days, #120 TAB Prov:CHEYENNE [employer] P[employer]ER 12/08/24 Reported Medications Escitalopram Oxalate (ESCITALOPRAM OXALATE) 10 Mg Tab, 1 TAB PO DAILY for 30 Days, #30 10/06/24 Information Source: Patient Mode of Arrival: Wheelchair Severity: Moderate Timing: Days Duration: Since onset, Days Prehospital treatment: None Past Medical History PAST MEDICAL HISTORY: COPD, CVA, High Lipids, HTN Surgical History: Denies all surgeries Surgical History (Other): left knee Sx, Ulcer Sx, ABD Sx Family History Family History: Reviewed,noncontributory to illness, Family hx of heart faby Social History Smoker: Non-Smoker, Quit Less Than 1 Year Alcohol: Sober Drugs: Marijuana Lives In: Home Constitutional: reports: others (Loss of appetite); denies: chills, diaphoresis, fatigue, fever, malaise, sweats, weakness EENTM: denies: blurred vision, double vision, ear bleeding, ear discharge, ear drainage, ear pain, ear ringing, eye pain, eye redness, hearing loss, mouth pain, mouth swelling, nasal discharge, nose bleeding, nose congestion, nose pain, photophobia, tearing, throat pain, throat swelling, voice changes, others Respiratory: denies: cough, hemoptysis, orthopnea, SOB at rest, shortness of breath, SOB with excertion, stridor, wheezing, others Cardiovascular: reports: syncope; denies: chest pain, dizzy spells, diapho resis, Dyspnea on exertion, edema, irregular heart beat, left arm pain, lightheadedness, palpitations, PND, others Gastrointestinal: reports: diarrhea; denies: abdomen distended, abdominal pain, blood streaked bowels, constipated, dysphagia, difficulty swallowing, hematemesis, melena, nausea, poor appetite, poor fluid intake, rectal bleeding, rectal pain, vomiting, others Genitourinary: denies: burning, dysuria, flank pain, frequency, hematuria, incontinence, penile discharge, penile sore, pain, testicle pain, testicle swelling, urgency, others Neurological: denies: dizziness, fainting, headache, left sided numbness, left sided weakness, numbness, paresthesia, pre-existing deficit, right sided numbness, right sided weakness, seizure, speech problems, tingling, tremors, weakness, others Musculoskeletal: denies: back pain, gout, joint pain, joint swelling, muscle pain, muscle stiffness, neck pain, others Integumetry: denies: bruises, change in color, change in hair/nails, dryness, laceration, lesions, lumps, rash, wounds, others Allergic/Immunocompromised: denies: Difficulty Healing, Frequent Infections, Hives, Itching, others Hematologic/Lymphatic: denies: anemia, blood clots, easy bleeding, easy bruising, swollen glands, others Endocrine: denies: excessive hunger, excessive sweating, excessive thirst, excessive urination, flushing, intolerance to cold, intolerance to heat, unexplained weight gain, unexplained weight loss, others Psychiatric: denies: anxiety, bipolar disorder, depression, hopeless, panic disorder, schizophrenia, sleepless, suicidal, others All Other Systems: Reviewed and Negative Physical Exam General Appearance: Cachectic, Moderate Distress HEENT: Pale Conjuntivae (L), Pale Conjuntivae (R), Pharynx Normal, TMs Normal Neck: Full Range of Motion, Non-Tender, Normal, Normal Inspection Respiratory: Chest Non-Tender, Lungs Clear, No Accessory Muscle Use, No Respiratory Distress, Normal Breath Sounds Cardiovascular: No Edema, No JVD, No Murmur, No Gallop, Normal Peripheral Pulses, Regular Rate/Rhythm Breast Exam: Deferred Gastrointestinal: No Organomegaly, Non Tender, No Pulsatile Mass, Normal Bowel Sounds, Soft Genitalia: Deferred Pelvic: Deferred Rectal: Deferred Extremities: No calf tenderness, Normal capillary refill, No pedal edema Musculoskeletal : Apperance: Normal 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 Was a procedure done?: No Differential Dx Considerations may include: Generalized weakness, anemia, dehydration, sepsis X-Ray, Labs, Meds, VS Vital Signs Date Time Temp Pulse Resp B/P (MAP) Pulse Ox O2 Delivery O2 Flow Rate FiO2 03/11/25 15:48 97.1 81 20 103/63 (76) 97 97.1 03/11/25 15:48 81 20 97 Room Air* 0 21 03/11/25 15:39 97.3 98 22 103/63 97 97.3 Lab Test 03/11/25 17:15 Range/Units White Blood Count 15.7 H 4.4-10.8 10^3/uL Red Blood Count 1.91 L 4.5-5.90 10^6/uL Hemoglobin 4.2 *L 13.5-17.5 g/dL Hematocrit 14.1 L 41.0-53.0 % Mean Corpuscular Volume 73.6 L 80.0-100.0 fL Mean Corpuscular Hemoglobin 21.7 L 28.0-32.0 pg Mean Corpuscular Hemoglobin Concent 29.5 L 32.0-36.0 g/dL Red Cell Distribution Width 18.7 H 11.8-14.3 % Platelet Count 284 140-450 10^3/uL Mean Platelet Volume 7.4 6.9-10.8 fL Neutrophils (%) (Auto) 88.0 H 37.0-80.0 % Lymphocytes (%) (Auto) 4.7 L 10.0-50.0 % Monocytes (%) (Auto) 7.0 0.0-12.0 % Eosinophils (%) (Auto) 0.2 0.0-7.0 % Basophils (%) (Auto) 0.1 0.0-2.0 % Neutrophils # (Auto) 13.8 H 1.6-8.6 10 ^3/uL Lymphocytes # (Auto) 0.7 0.4-5.4 10 ^3/uL Monocytes # (Auto) 1.1 0-1.3 10 ^3/uL Eosinophils # (Auto) 0 0-0.8 10 ^3/uL Basophils # (Auto) 0 0-0.2 10 ^3/uL Nucleated Red Blood Cells 0.4 % Sodium Level Pending Potassium Level Pending Chloride Level Pending Carbon Dioxide Level Pending Anion Gap Pending Blood Urea Nitrogen Pending Creatinine Pending Glomerular Filtration Rate Calc Pending BUN/Creatinine Ratio Pending Serum Glucose Pending Lactic Acid Level Pending Calcium Level Pending Current Medications Medications (Trade) Dose Ordered Sig/Wally Route Start Time Stop Time Status Last Admin Sodium Chloride 2,000 ml @ 1,000 mls/hr Q2H ONCE IV 03/11/25 15:45 03/11/25 17:44 DC 03/11/25 15:51 IV Hep-Lock was established The patient was given a 2 L bolus of normal saline The patient's CBC shows an elevated white blood cell count of 15.7 The patient's hemoglobin is 4.2 and hematocrit of 14.1 The platelets are 284 At this time, the chemistry panel is pending The patient is being admitted the hospitalist at this time. At this time, the patient understands and agrees with the management. We are transfusing the patient with 2 units of packed red blood cells The patient is admitted Images Reviewed?: Images reviewed and evaluated by me Time of 1ST Reevaluation: 16:30 Reevaluation 1ST: Unchanged Patient Education/Counseling: Diagnosis, Treatment, Prognosis Family Education/Counseling: Diagnosis, Treatment, Prognosis SEPSIS Sepsis Screen Date sepsis recognized/suspect: Mar 11, 2025 Time Sepsis recognized/suspect: 1541 Recent Procedure: No On Antibiotic Therapy: No Respiratory Rate >20: No Heart Rate >90: No Temp<36 C (96.8 F) or >38.3 C: No SBP <90 or MAP <65 mmHG: No New Acute Mental Status Change: No Is the patient on CPAP, BIPAP,: No Physician Orders Lactic Acid W/ Reflex Order (03/11/25 15:41) Urinalysis (03/11/25 15:41) Furnace Tender (03/11/25 15:41) Pulse Oximetry (03/11/25 15:41) Blood Pressure (03/11/25 15:41) Heplock Iv (03/11/25 15:41) Blood Culture (03/11/25 15:41) Basic Metabolic Panel (03/11/25 15:41) Clostridium Difficile Toxin (03/11/25 15:41) Obtain Consent For: (03/11/25 18:23) Packedcell-Noactive Bleeding (03/11/25 18:23) Type And Screen (03/11/25 18:23) Administer Blood Products UD (03/11/25 18:23) Vital Signs Date Time Temp Pulse Resp B/P (MAP) Pulse Ox O2 Delivery O2 Flow Rate FiO2 03/11/25 15:48 97.1 81 20 103/63 (76) 97 97.1 03/11/25 15:48 81 20 97 Room Air* 0 21 03/11/25 15:39 97.3 98 22 103/63 97 97.3 Laboratory Tests Test 03/11/25 17:15 Lactic Acid Level Pending White Blood Count 15.7 10^3/uL (4.4-10.8) H Medications Medications Dose Ordered Sig/Wally Route Start Time Stop Time Status Last Admin Dose Admin Sodium Chloride 2,000 ml @ 1,000 mls/hr Q2H ONCE IV 03/11/25 15:45 03/11/25 17:44 DC 03/11/25 15:51 Departure 1 Departure Time of Disposition: 18:26 Impression: Primary Impression: Severe anemia Additional Impressions: Autonomic dysfunction Leukocytosis Qualified Codes: D72.829 - Elevated white blood cell count, unspecified Disposition: 09 ADMITTED INPATIENT Admit to: Tele Condition: Fair Critical Care Note Critical Care Time?: Yes (55 min-critical care time only) Stability Stability form required: Yes Unstable for transfer: Telemetry monitoring (Telemetry monitoring required), ED Physician Assesment (Clinical assesment) Heart Score Heart Score: Heart Score Response (Comments) Value History N/A 0 EKG N/A 0 Age N/A 0 Risk Factors N/A 0 Troponin N/A 0 Total 0 I personally scribed for ELIANA BETANCOURT MD ([email or web address]) on 03/11/25 at 15:57. Electronically submitted by Deven Rueda ([email or web address]). ELIANA BETANCOURT MD Mar 11, 2025 15:57
[2025-03-11 17:59] LABS: Hematocrit 14.1 % (41.0-53.0); Mean Corpuscular Hemoglobin 21.7 pg (28.0-32.0); Mean Corpuscular Volume 73.6 fL (80.0-100.0); Nucleated Red Blood Cells % 0.4 %
[2025-03-11 18:03] LABS: Hemoglobin 4.2 g/dL (13.5-17.5)
[2025-03-11 18:19] LABS: Anion Gap 16 (5-15)
[2025-03-11 18:24] LABS: BUN/Creatinine Ratio 31.1 (10.0-20.0); Glucose 93 mg/dL (74-106)
[2025-03-11 18:25] LABS: Blood Urea Nitrogen 55 mg/dL (9-23); Calcium 8.4 mg/dL (8.7-10.4); Carbon Dioxide 19 mmol/L (20-31); Chloride 94 mmol/L (98-107); Potassium 3.3 mmol/L (3.5-5.1); Sodium 129 mmol/L (136-145)
[2025-03-11 20:25] VITALS: BP 123/75; PULSE 93; RESP 18; TEMP 98.1
[2025-03-11 20:40] VITALS: BP 121/72; PULSE 78; RESP 18; TEMP 98.1
[2025-03-11 20:55] VITALS: BP 121/68; PULSE 93; RESP 18; TEMP 98.1
[2025-03-11 21:33] VITALS: PULSE 91; RESP 18; O2SAT 97
[2025-03-11 22:39] VITALS: BP 123/72; PULSE 78; RESP 18; TEMP 98.1
[2025-03-11 23:21] LABS: Nucleated Red Blood Cells % 0.3 %
[2025-03-11 23:22] LABS: Hematocrit 17.2 % (41.0-53.0); Mean Corpuscular Hemoglobin 24.5 pg (28.0-32.0); Mean Corpuscular Volume 74.6 fL (80.0-100.0)
[2025-03-11 23:25] LABS: Hemoglobin 5.6 g/dL (13.5-17.5)
--- NOTE | 2025-03-11 23:57 | DVHHPRES ---
History of Present Illness Resident Creating Document: GOPAL VILLANUEVA RESIDENT History of Present Illness Jossue Perez JR is a 49-year-old male with past medical history of hypertension, hyperlipidemia, CVA in August of 2023 with no deficits, memory loss, History of DVT in her not taking any medication currently, left knee madden rgery, duodenal Ulcer Sx, who came with the chief complaints of 7 episodes of diarrhea yesterday which was tarry black in color. Patient denies any abdominal pain, chest pain, fever, chills , nausea, or vomiting. He is not on any blood thinner. He reports he was admitted to the ICU in September due from a syncope/ulcer burst in the ABD for which was D/C in December. He also states that he has been unable to keep any food down for the past few days. On admission his BP was 103/63, Sat of 97% RA and an accucheck of 122. Denies any other symptoms at this time. Denies any other associated symptom's, modifiers, or recent injuries or sick contact at this time. we are admitting him for further workup and management. Past medical history: As above Past surgical history: As above Family history: Father due to NE in mid 40s, mother had lung cancer social history: smoked 1 pack per day for 30 years, vapes nicotine now, takes marijuana once in a while via bong, used to drink 6 beers per day and some shots for past 30 years but stopped after recent surgery Allergies: None code status: Full code Review of Systems Constitutional: No: Fever, Chills, Sweats, Weakness, Malaise, Other Eyes: No: Pain, Vision change, Conjunctivae inflammation, Eyelid inflammation, Other, Redness ENT: No: Ear pain, Ear discharge, Nose pain, Nose discharge, Nose congestion, Mouth pain, Mouth swelling, Throat pain, Throat swelling, Other Respiratory: No: Cough, Dry, Shortness of breath, SOB with excertion, Wheezing, Hemoptysis, Pleuritic Pain, Sputum, Wheezing, Other Cardiovascular: No: Chest Pain, Palpitations, Orthopnea, Paroxysmal Noc. Dyspnea, Edema, Lt Headedness, Other Gastrointestinal: Melena Musculoskeletal: No: other, neck pain, shoulder pain, arm pain, back pain, hand pain, leg pain, foot pain Skin: No: Rash, Lesions, Jaundice, Bruising, Other Neurological: No: Weakness, Numbness, Incoordination, Change in speech, Confusion, Seizures, Other Allergies: Coded Allergies: NO KNOWN ALLERGIES (Unverified , 08/22/23) Exam Vital Signs Vital Signs Date Time Temp Pulse Resp B/P (MAP) Pulse Ox O2 Delivery O2 Flow Rate FiO2 03/11/25 22:39 98.1 78 18 123/72 98.1 03/11/25 21:33 97 Room Air* 0 21 Exam Pt is lying on bed General Appearance: Alert, Oriented X3, Cooperative, Not in acute distress HEENT: Atraumatic, Mucous membranes moist/pink, pale mucosa Respiratory: Clear to auscultation, Normal air movement, No added sounds Cardiovascular: Regular rate, Normal S1, Normal S2, No murmurs Abdominal: Active bowel sounds, Soft, no distention, no tenderness Extremities: No edema, Normal pulses, No tenderness/swelling Skin: No Significant rash, except past surgical scars Neuro: Normal speech, sensorimotor deficits none Psych/Mental Status: Mental status NL, Mood NL Labs/Xrays Labs Test 03/11/25 23:05 03/11/25 17:15 Range/Units White Blood Count 13.6 H 4.4-10.8 10^3/uL Red Blood Count 2.30 L 4.5-5.90 10^6/uL Hemoglobin 5.6 #*L 13.5-17.5 g/dL Hematocrit 17.2 #L 41.0-53.0 % Mean Corpuscular Volume 74.6 L 80.0-100.0 fL Mean Corpuscular Hemoglobin 24.5 L 28.0-32.0 pg Mean Corpuscular Hemoglobin Concent 32.8 32.0-36.0 g/dL Red Cell Distribution Width 20.5 H 11.8-14.3 % Platelet Count 648 #H 140-450 10^3/uL Mean Platelet Volume 6.3 L 6.9-10.8 fL Neutrophils (%) (Auto) 85.8 H 37.0-80.0 % Lymphocytes (%) (Auto) 5.1 L 10.0-50.0 % Monocytes (%) (Auto) 9.0 0.0-12.0 % Eosinophils (%) (Auto) 0.0 0.0-7.0 % Basophils (%) (Auto) 0.1 0.0-2.0 % Neutrophils # (Auto) 11.7 H 1.6-8.6 10 ^3/uL Lymphocytes # (Auto) 0.7 0.4-5.4 10 ^3/uL Monocytes # (Auto) 1.2 0-1.3 10 ^3/uL Eosinophils # (Auto) 0 0-0.8 10 ^3/uL Basophils # (Auto) 0 0-0.2 10 ^3/uL Nucleated Red Blood Cells 0.3 % Sodium Level 129 L 136-145 mmol/L Potassium Level 3.3 L 3.5-5.1 mmol/L Chloride Level 94 L 98-107 mmol/L Carbon Dioxide Level 19 L 20-31 mmol/L Anion Gap 16 H 5-15 Blood Urea Nitrogen 55 H 9-23 mg/dL Creatinine 1.77 H 0.700-1.30 mg/dL Glomerular Filtration Rate Calc 46 >90 mL/min BUN/Creatinine Ratio 31.1 H 10.0-20.0 Serum Glucose 93 74-106 mg/dL Lactic Acid Level 1.9 0.4-2.0 mmol/L Calcium Level 8.4 L 8.7-10.4 mg/dL SEPSIS Sepsis Screen Date sepsis recognized/suspect: Mar 11, 2025 Time Sepsis recognized/suspect: 2135 Recent Procedure: No On Antibiotic Therapy: No Respiratory Rate >20: No Heart Rate >90: No Temp<36 C (96.8 F) or >38.3 C: No SBP <90 or MAP <65 mmHG: No New Acute Mental Status Change: No Is the patient on CPAP, BIPAP,: No Physician Orders Obtain Consent For: (03/11/25 18:23) Type And Screen (03/11/25 18:23) Administer Blood Products UD (03/11/25 18:23) Packedcells -Active Bleeding (03/11/25 23:27) Vital Signs Date Time Temp Pulse Resp B/P (MAP) Pulse Ox O2 Delivery O2 Flow Rate FiO2 03/11/25 22:39 98.1 78 18 123/72 98.1 03/11/25 21:33 91 18 97 Room Air* 0 21 03/11/25 20:55 98.1 93 18 121/68 98.1 03/11/25 20:40 98.1 78 18 121/72 98.1 03/11/25 20:25 98.1 93 18 123/75 98.1 03/11/25 20:00 91 03/11/25 19:48 98.1 78 18 122/82 (95) 97 98.1 03/11/25 19:00 90 21 122/74 (90) 100 03/11/25 17:00 84 20 123/72 (89) 100 Laboratory Tests Test 03/11/25 17:15 03/11/25 23:05 Lactic Acid Level 1.9 mmol/L (0.4-2.0) White Blood Count 15.7 10^3/uL (4.4-10.8) H 13.6 10^3/uL (4.4-10.8) H Medications Medications Dose Ordered Sig/Wally Route Start Time Stop Time Status Last Admin Dose Admin Sodium Chloride 2,000 ml @ 1,000 mls/hr Q2H ONCE IV 03/11/25 15:45 03/11/25 17:44 DC 03/11/25 15:51 1,000 MLS/HR Assessment/Plan Assessment/Plan # GI bleed upper vs lower #microcytic hypochromic anemia due to above - iron profile, ferritin, B12, folate - hemoglobin on admission 5.4, 1 unit PRBC transfused, continue monitoring and tranfuse if Hb <7 - abdomen pelvis CT, pending - pantoprazole 40 mg IV b.i.d. - Zofran 4 mg IV q.4 PRN - serum alcohol, pending - UDS, pending - stool bacterial culture, Clostridium difficile toxin -GI consult placed #GIOVANI on CKD - IV fluids given -normal saline 1000 mL bolus - monitor - avoid nephrotoxic agents #left small pleural effusion - is seen chest x-ray - monitor #hypokalemia - repleted - magnesium, pending #Cholelithiasis without Cholecystitis - seen in ultrasound of the liver - continue to monitor - outpatient follow up GI prophylaxis: Protonix 40 mg b.i.d. IV DVT prophylaxis: Not given as patient has GI bleeding Diet: NPO Goals of care discussed with the patient for more than 27 minutes: Full code status Case discussed with , patient Plan discussed with: Patient Date of Service: Mar 12, 2025 Billing Provider: DIANA JEFFERSON MD Common Visit Codes: [id number] INP/OBS CARE (HIGH) Secondary Visit Codes: [id number] CARE PLAN 30 MINUTES GOPAL VILLANUEVA RESIDENT Mar 11, 2025 23:57 CLAY ROQUE RESIDENT Mar 12, 2025 08:16 DIANA JEFFERSON MD Mar 12, 2025 08:46
[2025-03-12] MEDS ORDERED: HYDROcodone-ACET 5/325MG TAB PO PRN
[2025-03-12] MEDS ORDERED: ACETAMINOPHEN 325 MG TAB PO PRN
[2025-03-12] MEDS ORDERED: ONDANSETRON HCL 4 MG/2 ML VIAL IV PRN
[2025-03-12 00:01] VITALS: PULSE 125; RESP 24; O2SAT 92
[2025-03-12] MEDS: PANTOPRAZOLE 40 MG/10 ML VIAL INJ IV ONE (00:30)
[2025-03-12 00:45] VITALS: BP 120/73; PULSE 88; RESP 18; TEMP 98.1
[2025-03-12 00:50] VITALS: BP 120/78; PULSE 88; RESP 18; TEMP 98.1
[2025-03-12] MEDS: POTASSIUM CHL 20MEQ/100ML 100 ML IV ONE ×2 (01:00→18:30)
[2025-03-12 01:05] VITALS: BP 121/78; PULSE 88; RESP 20; TEMP 98.1
[2025-03-12 02:25] VITALS: BP 130/80; PULSE 78; RESP 20; TEMP 98.1
[2025-03-12] MEDS: SODIUM CHLORIDE 0.9% 1,000 ML IV ONE (03:08)
--- NOTE | 2025-03-12 04:34 | DVH ---
CHEST RADIOGRAPH Indication: sob Technique: Single frontal view of the chest was obtained COMPARISON: CT CHEST WITHOUT CONTRAST on DOS: 01/21/25, XY CHEST TWO VIEWS ROUTINE on DOS: 12/24/24, XY C HEST XRAY 1 VIEW on DOS: 12/01/24, XY CHEST XRAY 1 VIEW on DOS: 11/18/24, XY CHEST XRAY 1 VIEW on DOS: FINDINGS: Lines and Tubes: None Lungs: Mild chronic appearing left basilar pulmonary airspace disease and possible small pleural effu sakshi. No pneumothorax. Cardiomediastinal contours: Unremarkable Bones: Unremarkable IMPRESSION: 1. Mild chronic appearing left basilar pulmonary airspace disease and possible small pleural effusion .
--- NOTE | 2025-03-12 04:40 | DVH ---
INDICATION: rule out liver cirrhosis TECHNIQUE: Multiple real-time sonographic images were obtained of the right upper quadrant. COMPARISON: US GALLBLADDER on DOS: 10/30/24, XY PERCUTANEOUS CHOLANGIO on DOS: 10/10/24, US LIVER on DO S: 10/09/24 FINDINGS: The liver demonstrates normal homogeneous echotexture without focal mass lesions. The liver measures 13.8 cm. Normal hepatopetal portal venous flow appreciated. No evidence of pleural effusion or abdominal ascites. There is no intrahepatic or extrahepatic ductal dilatation. The common duct measures 0.7 cm. Cholelithiasis. The gallbladder wall measures 0.2 cm and is within normal limits. Negative sonographi c zimmer's sign. The pancreas and right kidney are not well visualized due to overlying bowel gas. IMPRESSION: 1. Cholelithiasis. 2. No sonographic evidence of acute cholecystitis.
[2025-03-12 04:44] LABS: Hematocrit 22.9 % (41.0-53.0); Hemoglobin 7.5 g/dL (13.5-17.5); Mean Corpuscular Hemoglobin 25.1 pg (28.0-32.0); Mean Corpuscular Volume 76.8 fL (80.0-100.0); Nucleated Red Blood Cells % 0.3 %
[2025-03-12 05:14] LABS: INR 0.96 (0.9-1.15); Partial Thromboplastin Time 24.8 SEC (24.5-34.5); Prothrombin Time 10.2 sec (9.3-11.8)
[2025-03-12 05:16] LABS: Total Iron Binding Capacity 321.0 ug/dL (250-425)
[2025-03-12 05:18] LABS: Alanine Aminotransferase 16 U/L (7-40); Albumin 3.9 g/dL (3.2-4.8); Alkaline Phosphatase 79 U/L (46-116); Anion Gap 14 (5-15); BUN/Creatinine Ratio 25.3 (10.0-20.0); Carbon Dioxide 21 mmol/L (20-31); Glucose 94 mg/dL (74-106); Magnesium 2.3 mg/dL (1.6-2.6); Total Protein 7.4 g/dL (5.7-8.2)
[2025-03-12 05:21] LABS: Ferritin 21.1 ng/mL (22-322)
[2025-03-12 05:25] LABS: Iron 39.0 ug/dL (65-175)
[2025-03-12 05:27] LABS: Bilirubin, Direct 0.4 mg/dL (<0.3); Bilirubin, Total 1.2 mg/dL (0.2-1.0); Blood Urea Nitrogen 42 mg/dL (9-23); Calcium 8.5 mg/dL (8.7-10.4); Chloride 95 mmol/L (98-107); Potassium 2.8 mmol/L (3.5-5.1); Sodium 130 mmol/L (136-145)
[2025-03-12 05:31] LABS: Urine Protein, UAD TRACE (Negative)
--- NOTE | 2025-03-12 05:49 | DVH ---
Exam: CT CT AB PEL WO CON-NO ORAL OR IV History: GI bleed and hx of surgery for ulcer. Comparison Study: CT CHST AB PEL WO CON-NO IV/ORAL on DOS: 11/18/24. Technique: Multidetector spiral CT of the abdomen and pelvis was performed from lung bases to pubic s ymphysis. Imaging was performed without intravenous contrast. Coronal and sagittal multiplanar reform ats were obtained from the axial data set by the technologist. Radiation Dose : 1. Abdomen/Pelvis: CTDIvol 7.62 mGy, DLP 455.0 mGy*cm. Findings: Evaluation of vasculature and solid organs is limited due to lack of intravenous contrast use. Lung Bases: There is paraseptal emphysema in the lung apices. Bilateral lower lobe atelectasis. Visu alized portions of the heart and pericardium are unremarkable. Liver: The liver is normal in size. No focal lesions. Gallbladder and Biliary Tree: The gallbladder contains a gallstone. No intrahepatic or extrahepatic biliary ductal dilatation. Spleen: Unremarkable Pancreas: The pancreas is grossly unremarkable. Adrenal Glands: Unremarkable Kidneys: Left renal atrophy. No intrarenal calculi. No hydronephrosis. GI tract: There is fluid and gas distending the stomach. Fluid and gas-filled small bowel loops witho ut significant dilatation or transition point. No mucosal thickening. There is copious stool througho ut the colon. There is stool distending the rectal vault with mild circumferential thickening of the rectum measuring 3 mm. Appendix contains an appendicolith and is normal in caliber with no inflammato ry changes. Peritoneum/mesentery/retroperitoneum. No evidence of free intraperitoneal air. No ascites. No evidenc e of suspicious lymphadenopathy. Abdominal Wall: Unremarkable. Vasculature: The visualized abdominal aorta is normal in size and caliber. Evaluation of abdominal a nd pelvic vessels is limited due to lack of intravenous contrast. Nondiagnostic evaluation for GI ble ed in the absence of intravenous contrast. Urinary Bladder: Grossly unremarkable for degree of distention. Pelvic Organs: Unremarkable Musculoskeletal: No aggressive focal bony lesions, acute fractures or dislocation. IMPRESSION: 1. No evidence of acute abdominopelvic abnormalities. Nondiagnostic evaluation for GI bleed due to la ck of intravenous contrast. 2. Constipation and fecal impaction in the rectum with mild mucosal thickening of the rectum. 3. Upstream dilatation of small-bowel loops and the stomach possibly reflecting a low-grade distal pa rtial obstruction due to fecal retention. 4. Cholelithiasis. 5. Bilateral lower lobe atelectasis.
[2025-03-12 05:55] LABS: Barbiturate Scree,Urine Neg (NEGATIVE); Opiate Scree,Urine Neg (NEGATIVE)
[2025-03-12 05:56] LABS: Amphetamine Screen, Urine Neg (NEGATIVE); Benzodiazephine Screen, Urine Neg (NEGATIVE); Cannabinoid Screen, Urine Neg (NEGATIVE); Cocaine Screen, Urine Neg (NEGATIVE); Phencyclidine Screen, Urine Neg (NEGATIVE)
[2025-03-12 07:51] VITALS: PULSE 87; RESP 18; O2SAT 97
[2025-03-12] MEDS: PANTOPRAZOLE 40mg/50ML NS AE 50 ML IV SCH (10:00)
[2025-03-12] MEDS ORDERED: PANTOPRAZOLE 40 MG/10 ML VIAL INJ IV SCH (10:00)
[2025-03-12] MEDS: SODIUM CHLORIDE 0.9% 1,000 ML IV SCH (10:00)
[2025-03-12] MEDS: IRON SUCROSE COMPLEX 110 ML IV SCH (12:15)
[2025-03-12 13:19] LABS: Protein, Urine 23.6 mg/dL (1-14)
[2025-03-12 13:21] LABS: Hematocrit 22.3 % (41.0-53.0); Hemoglobin 7.5 g/dL (13.5-17.5); Mean Corpuscular Hemoglobin 25.4 pg (28.0-32.0); Mean Corpuscular Volume 75.8 fL (80.0-100.0); Nucleated Red Blood Cells % 0.5 %
[2025-03-12 13:30] LABS: Anion Gap 13 (5-15)
[2025-03-12 13:36] LABS: BUN/Creatinine Ratio 24.5 (10.0-20.0); Glucose 97 mg/dL (74-106)
[2025-03-12] MEDS: FLEET ENEMA(ADULT) 135 ML PR ONE (13:41)
[2025-03-12 13:43] LABS: Blood Urea Nitrogen 34 mg/dL (9-23); Calcium 8.5 mg/dL (8.7-10.4); Carbon Dioxide 19 mmol/L (20-31); Chloride 97 mmol/L (98-107); Potassium 2.6 mmol/L (3.5-5.1); Sodium 129 mmol/L (136-145)
[2025-03-12] MEDS: POTASSIUM CHL 20MEQ/100ML 100 ML IV SCH ×2 (14:14→21:05)
--- NOTE | 2025-03-12 16:00 | DVHCONRES ---
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 Yesterday patient had dark black tarry stools. Patient denies any abdominal pain, chest pain, fever, chills , nausea, or vomiting. He is not on any blood thinner. On arrival to the hospital patient low H&h and had to be transfused with 2 units of PRBC. Past Medical History as per HPI Past Surgical History Exploratory laparotomy tracheostomy Family History: Alcoholism G8 MOTHER Cardiovascular disease G8 MOTHER G8 FATHER FH: heart disease FH: lung cancer Hypertension G8 MOTHER Social History previous smoker, currently denies smoking, alcohol, drug use Allergies: Coded Allergies: NO KNOWN ALLERGIES (Unverified , 08/22/23) Home Meds Active Scripts Hydralazine HCl (Hydralazine HCl) 25 Mg Tab, 25 MG PO BID for 30 Days, #60 TAB Prov:CHEYENNE PIKE NEON SIGN MECHANIC 12/08/24 Labetalol HCl (Labetalol HCl) 200 Mg Tab, 200 MG PO BID for 30 Days, #60 TAB Prov:SALCHEYENNE MORA NEON SIGN MECHANIC 12/08/24 Nifedipine (Nifedipine Er) 60 Mg Tab, 2 TAB PO DAILY, #30 TAB 5 Refills Prov:CHEYENNE PIKE NEON SIGN MECHANIC 12/08/24 Pantoprazole Sodium Sesquihydr (Protonix) 40 Mg Tab, 40 MG PO BID for 30 Days, #60 TAB Prov:CHEYENNE PIKE NEON SIGN MECHANIC 12/08/24 Sucralfate (CARAFATE) 1 Gm Tab, 1 GM OR ACHS for 30 Days, #120 TAB Prov:CHEYENNE PIKE NEON SIGN MECHANIC 12/08/24 Reported Medications Escitalopram Oxalate (ESCITALOPRAM OXALATE) 10 Mg Tab, 1 TAB PO DAILY for 30 Days, #30 10/06/24 Current Medications Current Medications Medications (Trade) Dose Ordered Sig/Wally Route PRN Reason Start Time Stop Time Status Last Admin Acetaminophen/ Hydrocodone Bitart ([place] 5/325MG Tab) 1 tab Q4HP PRN PO MODERATE PAIN (4-6 PAIN SCALE) 03/12/25 00:00 03/12/25 00:38 DC Ondansetron HCl (Zofran) 4 mg Q4HP PRN IV NAUSEA / VOMITING 03/12/25 00:00 Acetaminophen (Tylenol Tablet) 650 mg Q6HP PRN PO PAIN SCALE 1-3 OR TEMP>100.4 03/12/25 00:00 03/12/25 00:38 DC Pantoprazole Sodium (Protonix) 40 mg BID IV 03/12/25 10:00 03/12/25 08:19 DC Pantoprazole Sodium 50 ml @ 10 mls/hr Q5H IV 03/12/25 08:30 03/12/25 13:41 Potassium Chloride 100 ml @ 50 mls/hr Q2H IV 03/12/25 08:30 03/12/25 14:29 DC 03/12/25 14:14 Sodium Chloride 1,000 ml @ 75 mls/hr [id number] IV 03/12/25 08:30 03/12/25 10:00 Iron Sucrose 110 ml @ 110 mls/hr DAILY@1200 IV 03/12/25 12:00 03/16/25 12:59 03/12/25 12:15 Review of Systems Patient is seen and examined at the bedside denies any abd pain currently last bowel movement reported yesterday denies any hematemesis Vital Signs Vital Signs Date Time Temp Pulse Resp B/P (MAP) Pulse Ox O2 Delivery O2 Flow Rate FiO2 03/12/25 14:00 75 18 156/100 (118) 98 03/12/25 13:37 Room Air* 0 21 03/12/25 12:00 97.5 97.5 Physical Exam Gen - mild conjunctival pallor, no scleral icterus Skin - Patients skin is warm and dry. HEENT - normocephalic, atraumatic, dry mucous membranes. Neck - supple, no lymphadenopathy Pulmonary - B/L equal air entry with vesicular breath sounds cardiovascular - regular S1,S2 heard GI - soft nontender abdomen. Bowel sounds normoactive. Neurological - Patient is alert and oriented x4. No motor or sensory weakness Labs/Diagnostic Data Labs Test 03/12/25 13:12 03/12/25 10:20 03/12/25 05:00 03/12/25 04:28 Range/Units White Blood Count 11.1 H 4.4-10.8 10^3/uL Red Blood Count 2.95 L 4.5-5.90 10^6/uL Hemoglobin 7.5 L 13.5-17.5 g/dL Hematocrit 22.3 L 41.0-53.0 % Mean Corpuscular Volume 75.8 L 80.0-100.0 fL Mean Corpuscular Hemoglobin 25.4 L 28.0-32.0 pg Mean Corpuscular Hemoglobin Concent 33.5 32.0-36.0 g/dL Red Cell Distribution Width 20.1 H 11.8-14.3 % Platelet Count 598 H 140-450 10^3/uL Mean Platelet Volume 6.3 L 6.9-10.8 fL Neutrophils (%) (Auto) 85.1 H 37.0-80.0 % Lymphocytes (%) (Auto) 6.6 L 10.0-50.0 % Monocytes (%) (Auto) 8.1 0.0-12.0 % Eosinophils (%) (Auto) 0.0 0.0-7.0 % Basophils (%) (Auto) 0.2 0.0-2.0 % Neutrophils # (Auto) 9.4 H 1.6-8.6 10 ^3/uL Lymphocytes # (Auto) 0.7 0.4-5.4 10 ^3/uL Monocytes # (Auto) 0.9 0-1.3 10 ^3/uL Eosinophils # (Auto) 0 0-0.8 10 ^3/uL Basophils # (Auto) 0 0-0.2 10 ^3/uL Nucleated Red Blood Cells 0.5 % Sodium Level 129 L 136-145 mmol/L Potassium Level 2.6 L 3.5-5.1 mmol/L Chloride Level 97 L 98-107 mmol/L Carbon Dioxide Level 19 L 20-31 mmol/L Anion Gap 13 5-15 Blood Urea Nitrogen 34 H 9-23 mg/dL Creatinine 1.39 H 0.700-1.30 mg/dL Glomerular Filtration Rate Calc 61 >90 mL/min BUN/Creatinine Ratio 24.5 H 10.0-20.0 Serum Glucose 97 74-106 mg/dL Calcium Level 8.5 L 8.7-10.4 mg/dL Urine Creatinine 10.46 L 30.0-125.0 mg/dL Urine Protein/Creatinine Ratio 2.26 Urine Sodium 83 40-220 mmol/L Urine Total Protein 23.6 H 1-14 mg/dL Urine Color Light-yellow Yellow Urine Clarity Clear Clear Urine pH 5.5 5.0-9.0 Urine Specific [place] 1.013 1.001-1.035 Urine Protein Trace H Negative Urine Ketones Trace Negative Urine Blood Negative Negative /uL Urine Nitrite Negative Negative Urine Bilirubin Negative Negative Urine Urobilinogen Normal Negative mg/dL Urine Leukocyte Esterase Negative Negative /uL Urine RBC <1 0 - 3 /hpf Urine Microscopic WBC < 1 0-3 /HPF Urine Squamous Epithelial Cells None seen <5 /hpf Urine Bacteria None seen None Seen /hpf Urine Glucose Normal Normal mg/dL Urine Opiates Screen Neg NEGATIVE Urine Fentanyl Screen Neg NEGATIVE Urine Barbiturates Screen Neg NEGATIVE Urine Phencyclidine Screen Neg NEGATIVE Urine Amphetamines Screen Neg NEGATIVE Urine Benzodiazepines Screen Neg NEGATIVE Urine Cocaine Screen Neg NEGATIVE Urine Cannabinoids Screen Neg NEGATIVE Prothrombin Time 10.2 9.3-11.8 sec Prothrombin Time INR 0.96 0.9-1.15 Activated Partial Thromboplast Time 24.8 24.5-34.5 SEC Magnesium Level 2.3 1.6-2.6 mg/dL Iron Level 39 L 65-175 ug/dL Total Iron Binding Capacity 321 250-425 ug/dL Percent Iron Saturation 12.1 L 20-55 % Ferritin 21.1 L 22-322 ng/mL Total Bilirubin 1.2 H 0.2-1.0 mg/dL Direct Bilirubin 0.4 H <0.3 mg/dL Aspartate Amino Transferase (AST) 36 13-40 U/L Alanine Aminotransferase (ALT) 16 7-40 U/L Alkaline Phosphatase 79 46-116 U/L Total Protein 7.4 5.7-8.2 g/dL Albumin 3.9 3.2-4.8 g/dL Vitamin B12 Level 852 211-911 pg/mL Vitamin D 25-Hydroxy 23.3 L 30.0-100 ng/mL Folic Acid 12.28 >5.38 ng/mL Plasma/Serum Blood Alcohol < 3.0 <10 mg/dL Test 03/11/25 23:05 03/11/25 17:15 Range/Units Reticulocyte Count (auto) 3.05 H 0.5-1.5 % Lactate Dehydrogenase 245 120-246 U/L Lactic Acid Level 1.9 0.4-2.0 mmol/L Assessment Assessment Severe normocytic hypochromic anemia likely d/t GI bleed possible PUD h/o perforated duodenal ulcer s/p exp laparotomy Iron deficiency Plan - on protonix drip - IV iron - EGD tomorrow - PRBC as needed to keep Hgb more than 7g/dl Plan discussed with Dr. Stoddard Plan discussed with: Patient, Other (RN) RICHARD TOSCANO RESIDENT Mar 12, 2025 16:00
[2025-03-12 17:22] LABS: Hematocrit 22.9 % (41.0-53.0); Hemoglobin 7.5 g/dL (13.5-17.5)
[2025-03-12] MEDS: hydrALAZINE HCL 20 MG/ML VL IV PRN (18:51)
[2025-03-12] MEDS: LORazepam 2MG/ML-1ML VIAL IV PRN (21:58)
--- NOTE | 2025-03-12 22:52 | DVHPNRES ---
Progress Note Date Seen: Mar 12, 2025 Resident Creating Document: JOSE F BONILLA RESIDENT Medical Necessity Reason Pt with a Central, PICC or Fol: No Subjective Review of Systems Jossue Perez he is a 49-year-old male past medical history of hypertension, hyperlipidemia, DVT, 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 The patient mentions he had passage of stool 7 times yesterday which was tarry black in color. Patient mentions he also had abdominal pain, nausea and a few episodes of vomiting for the last 2 days. He denies any fever,weakness or weight loss. He reports history of perforated duodenal ulcer s/p exp lap with prolonged ICU stay complicated with sepsis from cholecystitis s/p tracheostomy and removal. On arrival to the hospital, his hemoglobin was 4.2 and he had to be transfused with 2 units of PRBCs. He was kept NPO and NG tube placed. GI was consulted and they recommended continuing with IV Protonix drip scheduled patient for EGD on 03/13/2025. Past medical history: As above Past surgical history: left knee surgery Family history: Father due to [place] in mid 40s, mother had lung cancer social history: smoked 1 pack per day for 30 years, vapes nicotine now, takes marijuana once in a while via bong, used to drink 6 beers per day and some shots for past 30 years but stopped after recent surgery Allergies: None code status: Full code Patient seen and examined at bedside. Patient is alert and oriented to time, place person and responding to all questions. Patient looks in mid distress. Constitutional: No: Fever, Chills, Sweats, Weakness, Malaise Eyes: No: Pain, Vision change, Conjunctivae inflammation, Eyelid inflammation, Redness ENT: No: Ear pain, Ear discharge, Nose pain, Nose discharge, Nose congestion, Mouth pain, Mouth swelling, Throat pain, Throat swelling Respiratory: No: Cough, Dry, Shortness of breath, SOB with excertion, Wheezing, Hemoptysis, Pleuritic Pain, Sputum, Wheezing Cardiovascular: No: Chest Pain, Palpitations, Orthopnea, Paroxysmal Noc. Dyspnea, Edema, Lt Headedness Gastrointestinal: Melena Musculoskeletal: No: other, neck pain, shoulder pain, arm pain, back pain, hand pain, leg pain, foot pain Skin: No: Rash, Lesions, Jaundice, Bruising, Other Neurological: No: Weakness, Numbness, Incoordination, Change in speech, Confusion, Seizures Allergies: Coded Allergies: NO KNOWN ALLERGIES (Unverified , 08/22/23) Objective vital signs Vital Sign Date Time Temp Pulse Resp B/P (MAP) Pulse Ox O2 Delivery O2 Flow Rate FiO2 03/12/25 20:00 103 03/12/25 19:30 97.5 21 153/99 (117) 99 97.5 03/12/25 19:30 Nasal Cannula* 2 28 Total Intake and Output 03/12/25 03/12/25 03/12/25 02:30 10:30 18:30 Intake Total 650 ml 670 ml 790 ml Output Total 400 ml 400 ml 250 ml Balance 250 ml 270 ml 540 ml medications Current Medications Medications Dose Ordered Sig/Wally Route Start Time Stop Time Status Last Admin Dose Admin Ondansetron HCl 4 mg Q4HP PRN IV 03/12/25 00:00 Pantoprazole Sodium 50 ml @ 10 mls/hr Q5H IV 03/12/25 08:30 03/12/25 18:30 10 MLS/HR Sodium Chloride 1,000 ml @ 75 mls/hr [id number] IV 03/12/25 08:30 03/12/25 22:29 75 MLS/HR Iron Sucrose 110 ml @ 110 mls/hr DAILY@1200 IV 03/12/25 12:00 03/16/25 12:59 03/12/25 12:15 110 MLS/HR Hydralazine HCl 10 mg Q6HP PRN IV 03/12/25 17:30 03/12/25 18:51 10 MG Lorazepam 1 mg Q8HP PRN IV 03/12/25 21:45 03/12/25 21:58 1 MG Examination Pt is lying on bed General Appearance: Alert, Oriented X3, Cooperative, Not in acute distress HEENT: Atraumatic, Mucous membranes moist/pink, pale mucosa,tracheostomy scar is present on the neck Respiratory: Clear to auscultation, Normal air movement, No added sounds Cardiovascular: Regular rate, Normal S1, Normal S2, No murmurs Abdominal: Active bowel sounds, Soft, no distention, no tenderness Extremities: No edema, Normal pulses, No tenderness/swelling Skin: No Significant rash, except past surgical scars Neuro: Normal speech, sensorimotor deficits none Psych/Mental Status: Mental status NL, Mood NL RAJESH: Anal skin tag was noted with no external hemorrhoids, no anal fissures or hemorrhoids,normal rectal tone and empty rectal vault Nurse Hailey was present as flare worker during the examination laboratory and microbiology Laboratory Tests 03/12/25 21:50 03/12/25 16:51 03/12/25 13:12 Test 03/12/25 13:12 Range/Units Serum Glucose 97 74-106 mg/dL Microbiology Date/Time Source Procedure Growth Status 03/11/25 15:36 Blood Blood Culture - Preliminary NO GROWTH AFTER 24 HOURS OF INCUBATION. Resulted Labs and/or images reviewed: Labs reviewed by me, Image(s) reviewed by me Problem List/Assessment/Plan Problem List/Assessment/Plan # acute GI bleed upper vs lower #severe microcytic hypochromic anemia due to above # iron deficiency - hemoglobin on admission 4.2, 2 units PRBC transfused, continue monitoring with H&H and tranfuse if Hb <7 - pantoprazole 40 mg IV b.i.d. - Zofran 4 mg IV q.4 PRN -keep NPO -due for EGD on 03/13/25 # Partial small Intestinal obstruction likely secondary to fecal impaction. # Cholelithiasis -CT abdomen/pelvis showed low-grade distal partial obstruction due to fecal retention. - NPO -NG tube placed for decompression - IV NS @ 75ml/ hr - IV ceftriaxone 1 gm daily and IV metronidazole 500 mg 8hrly. -Fleet enema given # GIOVANI on CKD likely prerenal/ VMN - continue IV fluids - monitor BMP - avoid nephrotoxic agents #left small pleural effusion -chest x-ray Mild chronic appearing left basilar pulmonary airspace disease and possible small pleural effusion. - monitor #history of perforated duodenal ulcer s/p exploratory laparotomy #hypokalemia - repleted GI prophylaxis: Protonix 40 mg b.i.d. IV DVT prophylaxis: Not given as patient has GI bleeding Diet: NPO Goals of care discussed with the patient for more than 27 minutes: Full code status Case discussed with , patient Plan discussed with: Patient Plan discussed with: Patient CC Plasma Assessment Blood Product Administration S: 0050 Date of Service: Mar 12, 2025 Billing Provider: DIANA JEFFERSON MD Common Visit Codes: [id number] INP/OBS CARE(HIGH) JOSE F BONILLA RESIDENT Mar 12, 2025 22:52 SKY DASH RESIDENT Mar 13, 2025 10:04
[2025-03-13] VITALS (13 sets, daily range): BP systolic 123–146; BP diastolic 84–104; PULSE 111–125; RESP 18–24; TEMP 97.3–98.2; O2SAT 92–100
--- NOTE | 2025-03-13 04:37 | DVH ---
CHEST RADIOGRAPH Indication: NGT tube placement Technique: Single frontal view of the chest was obtained Comparison: XY CHEST PORTABLE on DOS: 03/12/25 FINDINGS: Lines and Tubes: The enteric tube terminates in the stomach. Lungs: Bilateral interstitial and alveolar opacities, increased since prior study. Pleura: No effusion. No pneumothorax. Cardiomediastinal contours: Unremarkable Bones: No acute osseous abnormality. IMPRESSION: 1. Enteric tube terminates in the stomach. 2. Worsening bilateral interstitial and alveolar opacities.
[2025-03-13 05:24] LABS: Hemoglobin 7.3 g/dL (13.5-17.5); Mean Corpuscular Volume 75.9 fL (80.0-100.0)
[2025-03-13 05:26] LABS: Hematocrit 22.5 % (41.0-53.0); Mean Corpuscular Hemoglobin 24.6 pg (28.0-32.0); Nucleated Red Blood Cells % 1.0 %
[2025-03-13 05:39] LABS: Chloride 100 mmol/L (98-107); Potassium 4.3 mmol/L (3.5-5.1); Sodium 131 mmol/L (136-145)
[2025-03-13 05:40] LABS: Anion Gap 17 (5-15); Carbon Dioxide 14 mmol/L (20-31)
[2025-03-13 05:41] LABS: Calcium 8.4 mg/dL (8.7-10.4)
[2025-03-13 05:45] LABS: BUN/Creatinine Ratio 27.2 (10.0-20.0); Glucose 101 mg/dL (74-106)
[2025-03-13 05:46] LABS: Blood Urea Nitrogen 43 mg/dL (9-23)
--- NOTE | 2025-03-13 07:30 | ECG ---
[facility] Test Date: 2025-03-13 Test Time: 05:10:37 Pat Name: SEN NAIK Department: Respiratoy Room: 0239T Gender: M Park Worker: GP : 1975 Requested By: GOPAL VILLANUEVA Order Number: [id number] Reading MD: Juan Jose Jane Measurements Intervals [place] Rate: 120 P: 83 PA: 176 QRS: 12 QRSD: 115 T: -85 QT: 351 QTc: 496 Interpretive Statements Sinus tachycardia Probable left atrial enlargement LVH with secondary repolarization abnormality Inferior infarct, age indeterminate Anterior ST elevation, probably due to LVH Electronically Signed On 03-16-2025 15:28:01 PDT by Juan Jose Jane Please click the below link to view image of tracing.
--- NOTE | 2025-03-13 07:36 | DVH ---
CHEST RADIOGRAPH Indication: NGT tube placement Technique: Single frontal view of the chest was obtained Comparison: XY CHEST XRAY 1 VIEW on DOS: 03/13/25 FINDINGS: Lines and Tubes: Enteric tube terminates in the stomach. Lungs: Patchy bilateral consolidation. Pleura: No effusion. No pneumothorax. Cardiomediastinal contours: Unremarkable Bones: No acute osseous abnormality. IMPRESSION: 1. Enteric tube terminates in the stomach. 2. Multifocal airspace disease. No significant interval change.
[2025-03-13] MEDS: FLEET ENEMA(ADULT) 135 ML PR ONE (10:46)
[2025-03-13] MEDS ORDERED: MORPHINE SULFATE INJ 2 MG/ml SYRG IV PRN (13:30)
[2025-03-13] MEDS ORDERED: METOCLOPRAMIDE HCL 5MG/ml INJ 2ml VIAL IV PRN (13:30)
[2025-03-13] MEDS ORDERED: MORPHINE SULFATE 4 MG/ML SYR/VIAL IV PRN (13:30)
[2025-03-13] MEDS ORDERED: HYDROmorphone HCL 2 MG/ML VL/or syr IV PRN ×2 (13:30)
[2025-03-13] MEDS ORDERED: ONDANSETRON HCL 4 MG/2 ML VIAL ONE (13:49)
[2025-03-13] MEDS ORDERED: PROPOFOL 10 MG/ML 20 ML IV ONE (13:49)
[2025-03-13] MEDS ORDERED: fentaNYL CITRATE 100 MCG/2 ML VL ONE (13:49)
[2025-03-13] MEDS ORDERED: MIDAZOLAM HCL 2MG/2ML 2ml VIAL (1mg/ml) ONE (13:49)
[2025-03-13] MEDS ORDERED: KETAMINE 50mg/ML 1ml syringe ONE (13:49)
[2025-03-13] MEDS ORDERED: LIDOCAINE 1% INJ PF 5ML AMP ONE (13:49)
[2025-03-13] MEDS ORDERED: SODIUM CHLORIDE LOCK 10 ML ONE (13:49)
[2025-03-13] MEDS: LIDOCAINE VISCOUS 2% 15ML UD ONE (13:50)
--- NOTE | 2025-03-13 14:23 | DVHOP2 ---
Operative Report DATE OF OPERATION: 03/13/25 PROCEDURE: Upper Endoscopy with biopsy. PREOPERATIVE INDICATION: The patient is a 49 -year-old male undergoing endoscopy for melena anemia history of perforated duodenal ulcer for which she underwent surgery earlier this year POSTOPERATIVE DIAGNOSES: 1. 1-2 cm sliding-type hiatal hernia with severe grade C linear erosive esophagitis with esophageal ulcers extending into the distal 15 cm of the esopha annabelle 2. Patient had a persistent duodenal bulb ulcer seen just inside the pyloric opening which was large coalescing with a visible sutures; there was no active bleeding or visible vessel but there was acute on chronic inflammation 3. Patient had deformity of the postbulbar duodenal area and I was able to see the 2nd part of the duodenum but there was area of debris and ongoing chronic ulceration inflammation and the endoscope was not advanced beyond this area 3. Patient had mild gastritis and some old coffee-ground within the stomach PROCEDURE PERFORMED BY: Gurjit Stoddard GI NURSE: Sandra SCOPE: Olympus videoendoscope. ASA CLASS: 3 PREOPERATIVE MEDICATIONS: Fausto howell, Dr. Rios PROCEDURE IN DETAIL: After obtaining an informed consent, the patient was placed on left lateral decubitus position. The patient was then sedated with the above medications. A bite block was placed between his teeth. The endoscope was then passed through the oropharynx, into the esophagus, and through the stomach and pylorus up to the 1st part of the duodenal. Patient had extensive area of ulceration with visible sutures I was able to see the 2nd part of the duodenum and the postbulbar area however the patient had a lot of debris chronic ulceration and deformity I did not advance the endoscope beyond this into the 2nd or 3rd part of the duodenal. Biopsies were obtained On retroflexion the fundus and cardia were normal. There was mild gastritis and some old coffee-ground in the stomach The endoscope was then withdrawn. Patient had a 2 cm sliding-type hiatal hernia with grade C erosive esophagitis There were linear and circumferential esophageal ulceration extending almost throughout the length of the esophagus into the distal 12-15 cm of the esophagus Esophageal biopsies were obtained. The proximal esophagus and oropharynx were otherwise unremarkable. Patient did have some thick respiratory secretions in his posterior pharynx The patient tolerated the procedure well without difficulty. COMPLICATIONS : None SPECIMENS: Gastric biopsies Esophageal biopsies DISPOSITION: Transfer back to the floor Stable PLAN: 1. Await for biopsy result 2. Will place pt on Protonix drip at 8 milligrams/hour 3. Carafate suspension 1 g p.o. 4 times a day, Zofran as needed 4. Consideration for a Gastrografin upper GI x-ray to make sure that there was continuation of contrast without extravasation into the 2nd and 3rd part of the duodenal 5. Advance diet once the patient is an upper GI x-ray is negative and he is able to tolerate diet 6. Patient needs lifelong maintenance with PPI and he was advised to DC NSAIDs smoking alcohol and aspirin GURJIT STODDARD MD Mar 13, 2025 14:23
[2025-03-13 17:30] LABS: Hematocrit 21.1 % (41.0-53.0)
[2025-03-13 17:33] LABS: Hemoglobin 6.8 g/dL (13.5-17.5)
--- NOTE | 2025-03-13 18:27 | DVHPNRES ---
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 The patient mentions he had passage of stool 7 times yesterday which was tarry black in color. Patient mentions he also had abdominal pain, nausea and a few episodes of vomiting for the last 2 days. He denies any fever,weakness or weight loss. He reports history of perforated duodenal ulcer s/p exp lap with prolonged ICU stay complicated with sepsis from cholecystitis s/p tracheostomy and removal. On arrival to the hospital, his hemoglobin was 4.2 and he had to be transfused with 2 units of PRBCs. He was kept NPO and NG tube placed. GI was consulted and they recommended continuing with IV Protonix drip scheduled patient for EGD on 03/13/2025. Past medical history: As above Past surgical history: left knee surgery Family history: Father due to MA in mid 40s, mother had lung cancer social history: smoked 1 pack per day for 30 years, vapes nicotine now, takes marijuana once in a while via bong, used to drink 6 beers per day and some shots for past 30 years but stopped after recent surgery Allergies: None code status: Full code Patient seen and examined at bedside. Patient is alert and oriented to time, place person and responding to all questions. Patient looks in mid distress. Constitutional: No: Fever, Chills, Sweats, Weakness, Malaise Eyes: No: Pain, Vision change, Conjunctivae inflammation, Eyelid inflammation, Redness ENT: No: Ear pain, Ear discharge, Nose pain, Nose discharge, Nose congestion, Mouth pain, Mouth swelling, Throat pain, Throat swelling Respiratory: No: Cough, Dry, Shortness of breath, SOB with excertion, Wheezing, Hemoptysis, Pleuritic Pain, Sputum, Wheezing Cardiovascular: No: Chest Pain, Palpitations, Orthopnea, Paroxysmal Noc. Dyspnea, Edema, Lt Headedness Gastrointestinal: Melena Musculoskeletal: No: other, neck pain, shoulder pain, arm pain, back pain, hand pain, leg pain, foot pain Skin: No: Rash, Lesions, Jaundice, Bruising, Other Neurological: No: Weakness, Numbness, Incoordination, Change in speech, Confusion, Seizures Allergies: Coded Allergies: NO KNOWN ALLERGIES (Unverified , 08/22/23) 03/13/25- the patient was seen at bedside today. The patient underwent EGD which showed 1-2 cm sliding-type hiatal hernia with severe grade C linear erosive esophagitis with esophageal ulcers extending into the distal 15 cm of the esophagus, persistent duodenal bulb ulcer seen just inside the pyloric opening which was large coalescing with a visible sutures; there was no active bleeding or visible vessel but there was acute on chronic inflammation, deformity of the postbulbar duodenal area and I was able to see the 2nd part of the duodenum but there was area of debris and ongoing chronic ulceration inflammation and the endoscope was not advanced beyond this area and mild gastritis and some old coffee-ground within the stomach. Upper GI series with Gastrografin was ordered by GI. His hemoglobin dropped to 6.8, 1 pack of RBCs was transfused. Surgical consult was placed,pending evaluation. Objective vital signs Vital Sign Date Time Temp Pulse Resp B/P (MAP) Pulse Ox O2 Delivery O2 Flow Rate FiO2 03/13/25 17:00 97.3 121 19 130/97 (108) 93 97.3 03/13/25 14:46 Room Air 03/13/25 14:36 7.0 03/13/25 00:01 36 Total Intake and Output 03/12/25 03/12/25 03/13/25 15:00 23:00 07:00 Intake Total 505 ml 405 ml 125 ml Output Total 650 ml 1900 ml Balance -145 ml 405 ml -1775 ml medications Current Medications Medications Dose Ordered Sig/Wally Route Start Time Stop Time Status Last Admin Dose Admin Ondansetron HCl 4 mg Q4HP PRN IV 03/12/25 00:00 Pantoprazole Sodium 50 ml @ 10 mls/hr Q5H IV 03/12/25 08:30 03/13/25 10:46 10 MLS/HR Sodium Chloride 1,000 ml @ 75 mls/hr [id number] IV 03/12/25 08:30 03/13/25 16:44 75 MLS/HR Iron Sucrose 110 ml @ 110 mls/hr DAILY@1200 IV 03/12/25 12:00 03/16/25 12:59 03/12/25 12:15 110 MLS/HR Hydralazine HCl 10 mg Q6HP PRN IV 03/12/25 17:30 03/12/25 18:51 10 MG Lorazepam 1 mg Q8HP PRN IV 03/12/25 21:45 03/12/25 21:58 1 MG Ceftriaxone Sodium 50 ml @ 100 mls/hr DAILY@09 IV 03/13/25 09:00 03/13/25 09:44 100 MLS/HR Metronidazole 100 ml @ 100 mls/hr Q8HR IV 03/13/25 14:00 Examination Pt is lying on bed General Appearance: Alert, Oriented X3, Cooperative, Not in acute distress HEENT: Atraumatic, Mucous membranes moist/pink, pale mucosa,tracheostomy scar present on neck Respiratory: Clear to auscultation, Normal air movement, No added sounds Cardiovascular: Regular rate, Normal S1, Normal S2, No murmurs Abdominal: Active bowel sounds, Soft, no distention, no tenderness Extremities: No edema, Normal pulses, No tenderness/swelling Skin: No Significant rash, except past surgical scars Neuro: Normal speech, sensorimotor deficits none Psych/Mental Status: Mental status NL, Mood NL RAJESH (03/12/25): Anal skin tag was noted with no external hemorrhoids, no anal fissures or hemorrhoids,normal rectal tone and empty vault Nurse was present as braider setter during the examination laboratory and microbiology Laboratory Tests 03/13/25 16:59 03/13/25 04:58 Test 03/13/25 04:58 Range/Units Serum Glucose 101 74-106 mg/dL Microbiology Date/Time Source Procedure Growth Status 03/13/25 11:53 Stool Stool Culture - Preliminary Resulted 03/13/25 11:53 Stool Shiga Toxin I & II - Final Resulted 03/12/25 11:55 Urine - [place] Urine Culture - Preliminary Resulted 03/11/25 15:36 Blood Blood Culture - Preliminary NO GROWTH AFTER 48 HOURS OF INCUBATION. Resulted Labs and/or images reviewed: Labs reviewed by me, Image(s) reviewed by me Problem List/Assessment/Plan Problem List/Assessment/Plan # Acute GI bleed upper vs lower # Severe microcytic hypochromic anemia due to above # Iron deficiency - continue monitoring with H&H and tranfuse if Hb <7 - pantoprazole 40 mg IV b.i.d. - Zofran 4 mg IV q.4 PRN -keep NPO -EGD on 03/13/25 showed 1-2 cm sliding-type hiatal hernia with severe grade C linear erosive esophagitis with esophageal ulcers extending into the distal 15 cm of the esophagus persistent duodenal bulb ulcer seen just inside the pyloric opening which was large coalescing with a visible sutures; there was no active bleeding or visible vessel but there was acute on chronic inflammation deformity of the postbulbar duodenal area and I was able to see the 2nd part of the duodenum but there was area of debris and ongoing chronic ulceration inflammation and the endoscope was not advanced beyond this area mild gastritis and some old coffee-ground within the stomach # Partial small Intestinal obstruction likely secondary to fecal impaction. # Cholelithiasis -CT abdomen/pelvis showed low-grade distal partial obstruction due to fecal retention. - NPO -NG tube placed for decompression - IV NS @ 75ml/ hr - IV ceftriaxone 1 gm daily and IV metronidazole 500 mg 8hrly. -Fleet enema given -surgical consult placed # GIOVANI on CKD likely prerenal/ VMN - continue IV fluids - monitor BMP - avoid nephrotoxic agents #left small pleural effusion -chest x-ray Mild chronic appearing left basilar pulmonary airspace disease and possible small pleural effusion. - monitor #history of perforated duodenal ulcer s/p exploratory laparotomy #hypokalemia - repleted GI prophylaxis: Protonix 40 mg b.i.d. IV DVT prophylaxis: Not given as patient has GI bleeding Diet: NPO Goals of care discussed with the patient for more than 27 minutes: Full code status Plan discussed with Dr Grant Plan discussed with: Patient Dietary Evaluation Review Recommendations by RD: Increase Calorie Intake, PPN/TPN Comments: Pt meets criteria 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 based on severe wt loss 35lb/24% in 5 month, intake <50% estimated requirement x 5 days, severe muscle wasting and fat depletion Nutrition Recommendation: 1) PPN/TPN if NPO continues 2) Advance to soft diet as medically feasible 3) Ensure Enlive 240ml TID if pt resumes PO diet 4) Monitor NPO status, lab values, weight trend, and I/O Expected Outcomes/Goals: Intake to meet >75% estimated needs GI symptoms to improve Fu 2-3 days Food and Nutrition Intake (Sev: <50% est energy req 5days Interpretation of weight loss: >10% in 6 months Body Fat Depletion (Severe): Mod to Severe Depletion Muscle Mass (Severe): Mod to Severe Depletion Protein Calorie Malnutrition: Severe Is there a minimum of two crit: Yes CC Plasma Assessment Blood Product Administration S: 0050 Date of Service: Mar 13, 2025 Billing Provider: HOLLAND GRANT MD Common Visit Codes: [id number] INP/OBS CARE(HIGH) Date of Service: Mar 13, 2025 Billing Provider: HOLLAND GRANT MD Common Visit Codes: [id number] INP/OBS CARE(HIGH) JOSE F BONILLA RESIDENT Mar 13, 2025 18:27 HOLLAND GRANT MD Mar 13, 2025 22:31
[2025-03-14 07:57] LABS: Hematocrit 24.0 % (41.0-53.0); Hemoglobin 7.9 g/dL (13.5-17.5); Mean Corpuscular Hemoglobin 26.2 pg (28.0-32.0); Mean Corpuscular Volume 79.8 fL (80.0-100.0); Nucleated Red Blood Cells % 3.3 %
[2025-03-14 08:00] VITALS: PULSE 109; PULSE 110; RESP 18; O2SAT 97
[2025-03-14 08:21] LABS: Chloride 104 mmol/L (98-107); Potassium 3.8 mmol/L (3.5-5.1); Sodium 138 mmol/L (136-145)
[2025-03-14 08:22] LABS: Anion Gap 20 (5-15)
[2025-03-14 08:27] LABS: BUN/Creatinine Ratio 23.1 (10.0-20.0)
[2025-03-14 08:29] LABS: Blood Urea Nitrogen 55 mg/dL (9-23); Calcium 8.0 mg/dL (8.7-10.4); Carbon Dioxide 14 mmol/L (20-31); Glucose 109 mg/dL (74-106)
[2025-03-14 09:00] VITALS: BP 142/99; PULSE 109; RESP 20; TEMP 97.4; O2SAT 92
[2025-03-14] MEDS: GASTROGRAFIN 120 ML SOL ONE (10:19)
--- NOTE | 2025-03-14 11:55 | DVHINCON2 ---
Date of service: Mar 14, 2025 History of Present Illness 49-year-old male with a history of duodenal ulcers admitted secondary to black tarry stool. On admission patient was found to be anemic. Patient underwent an EGD by Dr. Stoddard which showed duodenal ulcers in narrowing of the duodenum which prevented further advancement of the scope. Biopsies were performed. Past Medical History Hypertension. CVA in August of 2023 with minimal deficits. History of DVT not on any anticoagulation. History of duodenal ulcer. Past Surgical History Duodenal ulcer surgery. Left knee surgery Family History: Alcoholism G8 MOTHER Cardiovascular disease G8 MOTHER G8 FATHER FH: heart disease FH: lung cancer Hypertension G8 MOTHER Family History Father from [place] in his 40s. Mother with lung cancer. Social History One pack a day smoker for past 30 years. Now he vapes. Occasional marijuana. Six beers a day. Allergies: Coded Allergies: NO KNOWN ALLERGIES (Unverified , 08/22/23) Home Meds Active Scripts Hydralazine HCl (Hydralazine HCl) 25 Mg Tab, 25 MG PO BID for 30 Days, #60 TAB Prov:CHEYENNE PIKE CHARGE MASTER ANALYST 12/08/24 Labetalol HCl (Labetalol HCl) 200 Mg Tab, 200 MG PO BID for 30 Days, #60 TAB Prov:CHEYENNE PIKE CHARGE MASTER ANALYST 12/08/24 Nifedipine (Nifedipine Er) 60 Mg Tab, 2 TAB PO DAILY, #30 TAB 5 Refills Prov:CHEYENNE PIKE CHARGE MASTER ANALYST 12/08/24 Pantoprazole Sodium Sesquihydr (Protonix) 40 Mg Tab, 40 MG PO BID for 30 Days, #60 TAB Prov:CHEYENNE PIKE CHARGE MASTER ANALYST 12/08/24 Sucralfate (CARAFATE) 1 Gm Tab, 1 GM OR ACHS for 30 Days, #120 TAB Prov:CHEYENNE PIKE CHARGE MASTER ANALYST 12/08/24 Reported Medications Escitalopram Oxalate (ESCITALOPRAM OXALATE) 10 Mg Tab, 1 TAB PO DAILY for 30 Days, #30 10/06/24 Current Medications Current Medications Medications (Trade) Dose Ordered Sig/Wally Route PRN Reason Start Time Stop Time Status Last Admin Metronidazole 100 ml @ 100 mls/hr Q8HR IV 03/13/25 14:00 03/14/25 05:02 Metoclopramide HCl (Reglan Injection) 10 mg ONCE PRN IV NAUSEA / VOMITING 03/13/25 13:30 03/13/25 13:55 DC Hydromorphone HCl (Dilaudid Injection) 0.5 mg Q10M PRN IV SEVERE PAIN (7-10 PAIN SCALE) 03/13/25 13:30 03/13/25 14:11 DC Morphine Sulfate 2 mg Q4H PRN IV BREAKTHRU PAIN SCALE 7-10 03/13/25 13:30 03/13/25 17:31 DC Hydromorphone HCl (Dilaudid Injection) 0.25 mg Q10M PRN IV MODERATE PAIN (4-6 PAIN SCALE) 03/13/25 13:30 03/13/25 14:01 DC Morphine Sulfate 1 mg Q30M PRN IV SEVERE PAIN (7-10 PAIN SCALE) 03/13/25 13:30 03/13/25 15:31 DC Vital Signs Vital Signs Date Time Temp Pulse Resp B/P (MAP) Pulse Ox O2 Delivery O2 Flow Rate FiO2 03/14/25 09:00 97.4 109 20 142/99 (113) 92 97.4 03/14/25 08:00 Room Air* 0 21 Physical Exam GEN: Disheveled appearing male in no acute distress. Alert. HEENT: Normocephalic atraumatic. Moist mucous membranes. Anicteric sclerae. CV: RRR Respiratory: CTAB ABD: Soft. Nontender nondistended. Labs/Diagnostic Data Labs Test 03/14/25 06:47 03/13/25 11:53 03/13/25 04:58 03/13/25 03:46 Range/Units White Blood Count 10.9 #H 4.4-10.8 10^3/uL Red Blood Count 3.00 L 4.5-5.90 10^6/uL Hemoglobin 7.9 #L 13.5-17.5 g/dL Hematocrit 24.0 #L 41.0-53.0 % Mean Corpuscular Volume 79.8 #L 80.0-100.0 fL Mean Corpuscular Hemoglobin 26.2 L 28.0-32.0 pg Mean Corpuscular Hemoglobin Concent 32.8 32.0-36.0 g/dL Red Cell Distribution Width 20.4 H 11.8-14.3 % Platelet Count 529 H 140-450 10^3/uL Mean Platelet Volume 6.9 6.9-10.8 fL Neutrophils (%) (Auto) 88.9 H 37.0-80.0 % Lymphocytes (%) (Auto) 4.8 L 10.0-50.0 % Monocytes (%) (Auto) 6.2 0.0-12.0 % Eosinophils (%) (Auto) 0.0 0.0-7.0 % Basophils (%) (Auto) 0.1 0.0-2.0 % Neutrophils # (Auto) 9.7 H 1.6-8.6 10 ^3/uL Lymphocytes # (Auto) 0.5 0.4-5.4 10 ^3/uL Monocytes # (Auto) 0.7 0-1.3 10 ^3/uL Eosinophils # (Auto) 0 0-0.8 10 ^3/uL Basophils # (Auto) 0 0-0.2 10 ^3/uL Nucleated Red Blood Cells 3.3 % Sodium Level 138 # 136-145 mmol/L Potassium Level 3.8 3.5-5.1 mmol/L Chloride Level 104 98-107 mmol/L Carbon Dioxide Level 14 L 20-31 mmol/L Anion Gap 20 H 5-15 Blood Urea Nitrogen 55 #H 9-23 mg/dL Creatinine 2.38 H 0.700-1.30 mg/dL Glomerular Filtration Rate Calc 32 >90 mL/min BUN/Creatinine Ratio 23.1 H 10.0-20.0 Serum Glucose 109 H 74-106 mg/dL Calcium Level 8.0 L 8.7-10.4 mg/dL Stool Occult Blood Positive Negative Stool Occult Blood Sample #3 Negative Thyroid Stimulating Hormone (TSH) 3.84 0.55-4.78 uIU/mL Ammonia 18 11-32 umol/L Test 03/13/25 01:33 03/12/25 10:20 03/12/25 05:00 03/12/25 04:28 Range/Units POC Glucose 101 70-106 mg/dl Urine Creatinine 10.46 L 30.0-125.0 mg/dL Urine Protein/Creatinine Ratio 2.26 Urine Sodium 83 40-220 mmol/L Urine Total Protein 23.6 H 1-14 mg/dL Urine Color Light-yellow Yellow Urine Clarity Clear Clear Urine pH 5.5 5.0-9.0 Urine Specific [place] 1.013 1.001-1.035 Urine Protein Trace H Negative Urine Ketones Trace Negative Urine Blood Negative Negative /uL Urine Nitrite Negative Negative Urine Bilirubin Negative Negative Urine Urobilinogen Normal Negative mg/dL Urine Leukocyte Esterase Negative Negative /uL Urine RBC <1 0 - 3 /hpf Urine Microscopic WBC < 1 0-3 /HPF Urine Squamous Epithelial Cells None seen <5 /hpf Urine Bacteria None seen None Seen /hpf Urine Glucose Normal Normal mg/dL Urine Opiates Screen Neg NEGATIVE Urine Fentanyl Screen Neg NEGATIVE Urine Barbiturates Screen Neg NEGATIVE Urine Phencyclidine Screen Neg NEGATIVE Urine Amphetamines Screen Neg NEGATIVE Urine Benzodiazepines Screen Neg NEGATIVE Urine Cocaine Screen Neg NEGATIVE Urine Cannabinoids Screen Neg NEGATIVE Prothrombin Time 10.2 9.3-11.8 sec Prothrombin Time INR 0.96 0.9-1.15 Activated Partial Thromboplast Time 24.8 24.5-34.5 SEC Magnesium Level 2.3 1.6-2.6 mg/dL Iron Level 39 L 65-175 ug/dL Total Iron Binding Capacity 321 250-425 ug/dL Percent Iron Saturation 12.1 L 20-55 % Ferritin 21.1 L 22-322 ng/mL Total Bilirubin 1.2 H 0.2-1.0 mg/dL Direct Bilirubin 0.4 H <0.3 mg/dL Aspartate Amino Transferase (AST) 36 13-40 U/L Alanine Aminotransferase (ALT) 16 7-40 U/L Alkaline Phosphatase 79 46-116 U/L Total Protein 7.4 5.7-8.2 g/dL Albumin 3.9 3.2-4.8 g/dL Vitamin B12 Level 852 211-911 pg/mL Vitamin D 25-Hydroxy 23.3 L 30.0-100 ng/mL Folic Acid 12.28 >5.38 ng/mL Plasma/Serum Blood Alcohol < 3.0 <10 mg/dL Test 03/11/25 23:05 03/11/25 17:15 Range/Units Reticulocyte Count (auto) 3.05 H 0.5-1.5 % Lactate Dehydrogenase 245 120-246 U/L Lactic Acid Level 1.9 0.4-2.0 mmol/L Microbiology Date/Time Source Procedure Growth Status 03/13/25 11:53 Stool Stool Culture - Preliminary Resulted 03/13/25 11:53 Stool Shiga Toxin I & II - Final Resulted 03/12/25 11:55 Urine - [place] Urine Culture - Preliminary Resulted 03/11/25 15:36 Blood Blood Culture - Preliminary NO GROWTH AFTER 48 HOURS OF INCUBATION. Resulted Assessment 1. Duodenal ulcers with possible upper GI bleeding Plan/Recommendation 1. Patient has a small-bowel follow-through with Gastrografin pending. 2. Recommend bleeding scan to assess for possible active bleeding. Plan discussed with: Patient SAMMIE LEONARDO MD Mar 14, 2025 11:54
[2025-03-14 12:53] VITALS: BP 144/104; PULSE 111; RESP 20; TEMP 97.8; O2SAT 92
[2025-03-14 14:16] LABS: Hematocrit 30.1 % (41.0-53.0); Hemoglobin 9.3 g/dL (13.5-17.5)
--- NOTE | 2025-03-14 16:18 | DVHPNRES ---
Progress Note Date Seen: Mar 14, 2025 Resident Creating Document: JOSE F BONILLA RESIDENT Medical Necessity Reason Pt with a Central, PICC or Fol: No Subjective Review of Systems Jossue Perez he is a 49-year-old male past medical history of hypertension, hyperlipidemia, DVT, 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 The patient mentions he had passage of stool 7 times yesterday which was tarry black in color. Patient mentions he also had abdominal pain, nausea and a few episodes of vomiting for the last 2 days. He denies any fever,weakness or weight loss. He reports history of perforated duodenal ulcer s/p exp lap with prolonged ICU stay complicated with sepsis from cholecystitis s/p tracheostomy and removal. On arrival to the hospital, his hemoglobin was 4.2 and he had to be transfused with 2 units of PRBCs. He was kept NPO and NG tube placed. GI was consulted and they recommended continuing with IV Protonix drip scheduled patient for EGD on 03/13/2025. Past medical history: As above Past surgical history: left knee surgery Family history: Father due to NH in mid 40s, mother had lung cancer social history: smoked 1 pack per day for 30 years, vapes nicotine now, takes marijuana once in a while via bong, used to drink 6 beers per day and some shots for past 30 years but stopped after recent surgery Allergies: None code status: Full code Patient seen and examined at bedside. Patient is alert and oriented to time, place person and responding to all questions. Patient looks in mid distress. Constitutional: No: Fever, Chills, Sweats, Weakness, Malaise Eyes: No: Pain, Vision change, Conjunctivae inflammation, Eyelid inflammation, Redness ENT: No: Ear pain, Ear discharge, Nose pain, Nose discharge, Nose congestion, Mouth pain, Mouth swelling, Throat pain, Throat swelling Respiratory: No: Cough, Dry, Shortness of breath, SOB with excertion, Wheezing, Hemoptysis, Pleuritic Pain, Sputum, Wheezing Cardiovascular: No: Chest Pain, Palpitations, Orthopnea, Paroxysmal Noc. Dyspnea, Edema, Lt Headedness Gastrointestinal: Melena Musculoskeletal: No: other, neck pain, shoulder pain, arm pain, back pain, hand pain, leg pain, foot pain Skin: No: Rash, Lesions, Jaundice, Bruising, Other Neurological: No: Weakness, Numbness, Incoordination, Change in speech, Confusion, Seizures Allergies: Coded Allergies: NO KNOWN ALLERGIES (Unverified , 08/22/23) 03/13/25- the patient was seen at bedside today. The patient underwent EGD which showed 1-2 cm sliding-type hiatal hernia with severe grade C linear erosive esophagitis with esophageal ulcers extending into the distal 15 cm of the esophagus, persistent duodenal bulb ulcer seen just inside the pyloric opening which was large coalescing with a visible sutures; there was no active bleeding or visible vessel but there was acute on chronic inflammation, deformity of the postbulbar duodenal area and I was able to see the 2nd part of the duodenum but there was area of debris and ongoing chronic ulceration inflammation and the endoscope was not advanced beyond this area and mild gastritis and some old coffee-ground within the stomach. Upper GI series with Gastrografin was ordered by GI. His hemoglobin dropped to 6.8, 1 pack of RBCs was transfused. Surgical consult was placed,pending evaluation. 03/14/25- the patient was seen at bedside today. Labs and charts were reviewed. Gastrografin study was done, pending results. Surgery was consulted and they recommended bleeding scan. Patient will be kept NPO. We will do H&H q8 hrly and transfuse if Hgb is <7. Patient is C diff positive. Objective vital signs Vital Sign Date Time Temp Pulse Resp B/P (MAP) Pulse Ox O2 Delivery O2 Flow Rate FiO2 03/14/25 12:53 97.8 111 20 144/104 (117) 92 97.8 03/14/25 08:00 Room Air* 0 21 Total Intake and Output 03/13/25 03/13/25 03/14/25 15:00 23:00 07:00 Intake Total 108 ml 900 ml 550 ml Output Total 550 ml 1000 ml Balance 108 ml 350 ml -450 ml medications Current Medications Medications Dose Ordered Sig/Wally Route Start Time Stop Time Status Last Admin Dose Admin Ondansetron HCl 4 mg Q4HP PRN IV 03/12/25 00:00 Pantoprazole Sodium 50 ml @ 10 mls/hr Q5H IV 03/12/25 08:30 03/14/25 06:11 10 MLS/HR Sodium Chloride 1,000 ml @ 75 mls/hr [id number] IV 03/12/25 08:30 03/14/25 13:50 75 MLS/HR Iron Sucrose 110 ml @ 110 mls/hr DAILY@1200 IV 03/12/25 12:00 03/16/25 12:59 03/12/25 12:15 110 MLS/HR Hydralazine HCl 10 mg Q6HP PRN IV 03/12/25 17:30 03/12/25 18:51 10 MG Lorazepam 1 mg Q8HP PRN IV 03/12/25 21:45 03/12/25 21:58 1 MG Ceftriaxone Sodium 50 ml @ 100 mls/hr DAILY@09 IV 03/13/25 09:00 03/14/25 09:19 100 MLS/HR Metronidazole 100 ml @ 100 mls/hr Q8HR IV 03/13/25 14:00 03/14/25 14:26 100 MLS/HR Examination Pt is lying on bed. Patient looks weak and cachectic. General Appearance: Alert, Oriented X3, Cooperative, Not in acute distress HEENT: Atraumatic, Mucous membranes moist/pink, pale mucosa, tracheostomy scar present on neck Respiratory: Clear to auscultation, Normal air movement, No added sounds Cardiovascular: Regular rate, Normal S1, Normal S2, No murmurs Abdominal: Active bowel sounds, Soft, no distention, no tenderness, Extremities: No edema, Normal pulses, No tenderness/swelling Skin: No Significant rash, except past surgical scars Neuro: Normal speech, sensorimotor deficits none Psych/Mental Status: Mental status NL, Mood NL RAJESH (03/12/25): Anal skin tag was noted with no external hemorrhoids, no anal fissures or hemorrhoids,normal rectal tone and empty vault Nurse was present as coverage analyst during the examination laboratory and microbiology Laboratory Tests 03/14/25 13:22 03/14/25 06:47 Test 03/14/25 06:47 Range/Units Serum Glucose 109 H 74-106 mg/dL Microbiology Date/Time Source Procedure Growth Status 03/13/25 11:53 Stool Stool Culture - Preliminary Resulted 03/13/25 11:53 Stool Shiga Toxin I & II - Final Resulted 03/12/25 11:55 Urine - [place] Urine Culture - Final Complete 03/11/25 15:36 Blood Blood Culture - Preliminary NO GROWTH AFTER 48 HOURS OF INCUBATION. Resulted Labs and/or images reviewed: Labs reviewed by me, Image(s) reviewed by me Problem List/Assessment/Plan Problem List/Assessment/Plan # Acute GI bleed upper vs lower # Severe microcytic hypochromic anemia due to above # Iron deficiency - continue monitoring with H&H and tranfuse if Hb <7 - pantoprazole 40 mg IV b.i.d. - Zofran 4 mg IV q.4 PRN -keep NPO -EGD on 03/13/25 showed 1-2 cm sliding-type hiatal hernia with severe grade C linear erosive esophagitis with esophageal ulcers extending into the distal 15 cm of the esophagus persistent duodenal bulb ulcer seen just inside the pyloric opening which was large coalescing with a visible sutures; there was no active bleeding or visible vessel but there was acute on chronic inflammation deformity of the postbulbar duodenal area and I was able to see the 2nd part of the duodenum but there was area of debris and ongoing chronic ulceration inflammation and the endoscope was not advanced beyond this area mild gastritis and some old coffee-ground within the stomach -Gastrograffin study ordered-pending results # Partial small Intestinal obstruction likely secondary to fecal impaction. # Cholelithiasis #C diff positive -CT abdomen/pelvis showed low-grade distal partial obstruction due to fecal retention. - NPO -NG tube placed for decompression - IV NS @ 75ml/ hr - IV ceftriaxone 1 gm daily and IV metronidazole 500 mg 8hrly. -Fleet enema given on 03/13/25 -surgical consult - recommended bleeding scan # GIOVANI on CKD likely prerenal/ VMN - continue IV fluids - monitor BMP - avoid nephrotoxic agents #left small pleural effusion -chest x-ray Mild chronic appearing left basilar pulmonary airspace disease and possible small pleural effusion. - monitor with repeat chest xray #history of perforated duodenal ulcer s/p exploratory laparotomy #hypokalemia - repleted GI prophylaxis: Protonix 40 mg b.i.d. IV DVT prophylaxis: Not given as patient has GI bleeding Diet: NPO Goals of care discussed with the patient for more than 27 minutes: Full code status Plan discussed with Dr Grant Plan discussed with: Patient My Orders My Orders Orders - JOSE F BONILLA RESIDENT Procedure Category Date Status Time Vital Signs CINTHIA 03/13/25 In Process 19:00 Administer Blood CINTHIA 03/13/25 In Process Products 19:00 Dietary Evaluation Review Recommendations by RD: Increase Calorie Intake, PPN/TPN Comments: Pt meets criteria 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 based on severe wt loss 35lb/24% in 5 month, intake <50% estimated requirement x 5 days, severe muscle wasting and fat depletion Nutrition Recommendation: 1) PPN/TPN if NPO continues 2) Advance to soft diet as medically feasible 3) Ensure Enlive 240ml TID if pt resumes PO diet 4) Monitor NPO status, lab values, weight trend, and I/O Expected Outcomes/Goals: Intake to meet >75% estimated needs GI symptoms to improve Fu 2-3 days Food and Nutrition Intake (Sev: <50% est energy req 5days Interpretation of weight loss: >10% in 6 months Body Fat Depletion (Severe): Mod to Severe Depletion Muscle Mass (Severe): Mod to Severe Depletion Protein Calorie Malnutrition: Severe Is there a minimum of two crit: Yes CC Plasma Assessment Blood Product Administration S: [id number] Date of Service: Mar 14, 2025 Billing Provider: HOLLAND GRANT MD Common Visit Codes: [id number] INP/OBS CARE(HIGH) Date of Service: Mar 14, 2025 Billing Provider: HOLLAND GRANT MD Common Visit Codes: [id number] INP/OBS CARE(HIGH) JOSE F BONILLA RESIDENT Mar 14, 2025 16:18 HOLLAND GRANT MD Mar 14, 2025 18:04
--- NOTE | 2025-03-14 16:36 | DVH ---
Procedure: XY SMALL BOWEL SERIES-W GASTROGRA Reason for study/Clinical History: HX of perforated duodenal ulcer s/p surgical repair Comparison Study: CT abdomen and pelvis from 03/12/2025. Small bowel series with gastrografin from Technique: Single contrast small bowel series performed. 100 mL Gastrografin administered orally. FINDINGS/IMPRESSION: Initial golf club manager view of the abdomen and pelvis appears demonstrates no acute process. Contrast is identified within the colon by 3 hours. No evidence of bowel obstruction.
[2025-03-14 16:51] VITALS: BP 145/108; PULSE 108; RESP 20; TEMP 97.3; O2SAT 100
[2025-03-14 20:00] VITALS: PULSE 105; PULSE 108; RESP 18; O2SAT 93
[2025-03-14 21:01] VITALS: BP 135/95; PULSE 108; RESP 17; TEMP 97.8; O2SAT 92
[2025-03-14 22:05] LABS: Hematocrit 24.5 % (41.0-53.0); Hemoglobin 8.0 g/dL (13.5-17.5)
[2025-03-15] VITALS (8 sets, daily range): BP systolic 134–144; BP diastolic 97–106; PULSE 110–121; RESP 17–20; TEMP 97.7–98.7; O2SAT 93–99
[2025-03-15 06:29] LABS: Anion Gap 20 (5-15); Potassium 4.4 mmol/L (3.5-5.1)
[2025-03-15 06:35] LABS: BUN/Creatinine Ratio 31.7 (10.0-20.0)
[2025-03-15 06:40] LABS: Hematocrit 23.9 % (41.0-53.0); Hemoglobin 7.8 g/dL (13.5-17.5)
[2025-03-15 06:58] LABS: Blood Urea Nitrogen 82 mg/dL (9-23); Calcium 7.7 mg/dL (8.7-10.4); Carbon Dioxide 14 mmol/L (20-31); Chloride 111 mmol/L (98-107); Glucose 109 mg/dL (74-106); Sodium 145 mmol/L (136-145)
--- NOTE | 2025-03-15 09:54 | DVH ---
XY CHEST PORTABLE, HISTORY: edema COMPARISON: XY CHEST XRAY 1 VIEW on DOS: 03/13/25, XY CHEST XRAY 1 VIEW on DOS: 03/13/25, XY CHEST PO RTABLE on DOS: 03/12/25 XY CHEST XRAY 1 VIEW on DOS: 03/13/25, XY CHEST XRAY 1 VIEW on DOS: 03/13/25, XY CHEST PORTABLE on DO S: 03/12/25 TECHNICAL DATA: 1 view of the chest was obtained. FINDINGS: Lines and tubes: None Cardiomediastinal silhouette: normal Pulmonary vasculature: Prominent Lung expansion: normal Lung airspace: normal Lung interstitium: normal Pleura: normal Pneumothorax: no Bones: Unremarkable Other: no IMPRESSION: No acute intrathoracic abnormality.
[2025-03-15] MEDS: FUROSEMIDE 40 MG/4 ML VIAL IV ONE (10:48)
[2025-03-15] MEDS: SODIUM BICARB 8.4% 50Meq/50ml SYR Vial IV ONE (10:49)
--- NOTE | 2025-03-15 12:17 | DVHPN2 ---
Progress Note - Dictate Date Seen: Mar 15, 2025 Medical Necessity Reason Pt with a Central, PICC or Fol: No Subjective E: no major events o/n. no complaints. franchesca liquid diet. vital signs Vital Sign Date Time Temp Pulse Resp B/P (MAP) Pulse Ox O2 Delivery O2 Flow Rate FiO2 03/15/25 10:48 141/102 03/15/25 09:00 98.4 115 18 97 98.4 03/14/25 20:00 Room Air* 0 21 Total Intake and Output 03/14/25 03/14/25 03/15/25 15:00 23:00 07:00 Intake Total 350 ml 200 ml 100 ml Output Total 400 ml 600 ml Balance 350 ml -200 ml -500 ml medications Current Medications Medications Dose Ordered Sig/Wally Route Start Time Stop Time Status Last Admin Dose Admin Ondansetron HCl 4 mg Q4HP PRN IV 03/12/25 00:00 Pantoprazole Sodium 50 ml @ 10 mls/hr Q5H IV 03/12/25 08:30 03/15/25 11:46 10 MLS/HR Sodium Chloride 1,000 ml @ 75 mls/hr [id number] IV 03/12/25 08:30 03/15/25 05:29 75 MLS/HR Iron Sucrose 110 ml @ 110 mls/hr DAILY@1200 IV 03/12/25 12:00 03/16/25 12:59 03/15/25 11:46 110 MLS/HR Hydralazine HCl 10 mg Q6HP PRN IV 03/12/25 17:30 03/12/25 18:51 10 MG Lorazepam 1 mg Q8HP PRN IV 03/12/25 21:45 03/12/25 21:58 1 MG Ceftriaxone Sodium 50 ml @ 100 mls/hr DAILY@09 IV 03/13/25 09:00 03/15/25 10:27 100 MLS/HR Metronidazole 100 ml @ 100 mls/hr Q8HR IV 03/13/25 14:00 03/15/25 05:30 100 MLS/HR objective GEN: looking tired but in NAD. ABD: soft. NT/ND. SBFT: no obstruction laboratory and microbiology Laboratory Tests 03/15/25 04:50 03/14/25 06:47 Test 03/15/25 04:50 Range/Units Serum Glucose 109 H 74-106 mg/dL Assessment/Plan A: 1. Duodenal ulcers with possible upper GI bleeding P: 1. Hgb relatively stable. cont curr tx. Dietary Evaluation Review Recommendations by RD: Increase Calorie Intake, PPN/TPN Comments: Pt meets criteria 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 based on severe wt loss 35lb/24% in 5 month, intake <50% estimated requirement x 5 days, severe muscle wasting and fat depletion Nutrition Recommendation: 1) PPN/TPN if NPO continues 2) Advance to soft diet as medically feasible 3) Ensure Enlive 240ml TID if pt resumes PO diet 4) Monitor NPO status, lab values, weight trend, and I/O Expected Outcomes/Goals: Intake to meet >75% estimated needs GI symptoms to improve Fu 2-3 days Food and Nutrition Intake (Sev: <50% est energy req 5days Interpretation of weight loss: >10% in 6 months Body Fat Depletion (Severe): Mod to Severe Depletion Muscle Mass (Severe): Mod to Severe Depletion Protein Calorie Malnutrition: Severe Is there a minimum of two crit: Yes Plan discussed with: Patient CC Plasma Assessment Blood Product Administration S: [id number] SAMMIE LEONARDO MD Mar 15, 2025 12:17
--- NOTE | 2025-03-15 13:14 | DVHPNRES ---
Progress Note Date Seen: Mar 15, 2025 Resident Creating Document: SILAS STAHL RESIDENT Medical Necessity Reason Pt with a Central, PICC or Fol: No Subjective Review of Systems This is a 49-year-old male past medical history of hypertension, hyperlipidemia, DVT, 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 The patient mentions he had passage of stool 7 times yesterday which was tarry black in color. Patient mentions he also had abdominal pain, nausea and a few episodes of vomiting for the last 2 days. He denies any fever,weakness or weight loss. He reports history of perforated duodenal ulcer s/p exp lap with prolonged ICU stay complicated with sepsis from cholecystitis s/p tracheostomy and removal. On arrival to the hospital, his hemoglobin was 4.2 and he had to be transfused with 2 units of PRBCs. He was kept NPO and NG tube placed. GI was consulted and they recommended continuing with IV Protonix drip. Patient had EGD on 03/13/2025, which showed grade C esophagitis, debris and duodenal bulb ulcer with chronic inflammation endoscope was not able to be advanced after postbulbar duodenal. Patient seen and examined at bedside. Yesterday EGD was performed showing grade C esophagitis, there was a duodenal bulb ulcer with debris and chronic inflammation. Scope was not able to past post vulvar duodenum. Small bowel series with Gastrografin was performed and contrast was visible in the colon by 3:00 a.m. which was unremarkable. SBO has apparently resolved by this time. We started the patient on clear liquid diet. Blood scan nuclear medicine was ordered still pending. Patient is hungry requesting diet. Patient denies abdominal pain, shortness of breath, chest pain, diarrhea, fever/chills or any other symptoms. Hb today is 7.8 will monitor h and h closely. ROS Constitutional: Denies weight loss, fever and chills. HEENT: Denies changes in vision and hearing. Respiratory: Denies shortness of breath and cough Cardiovascular: Denies chest discomfort or palpitations GI: Denies abdominal pain, nausea, vomiting and diarrhea. : Denies dysuria and urinary frequency. Musculoskeletal: Denies myalgias and joint pain Skin: Denies rash and pruritus. Neurological: Denies dizziness, headache, vision or hearing problems Objective vital signs Vital Sign Date Time Temp Pulse Resp B/P (MAP) Pulse Ox O2 Delivery O2 Flow Rate FiO2 03/15/25 10:48 141/102 03/15/25 09:00 98.4 115 18 97 98.4 03/14/25 20:00 Room Air* 0 21 Total Intake and Output 03/14/25 03/14/25 03/15/25 15:00 23:00 07:00 Intake Total 350 ml 200 ml 100 ml Output Total 400 ml 600 ml Balance 350 ml -200 ml -500 ml medications Current Medications Medications Dose Ordered Sig/Wally Route Start Time Stop Time Status Last Admin Dose Admin Ondansetron HCl 4 mg Q4HP PRN IV 03/12/25 00:00 Pantoprazole Sodium 50 ml @ 10 mls/hr Q5H IV 03/12/25 08:30 03/15/25 11:46 10 MLS/HR Sodium Chloride 1,000 ml @ 75 mls/hr [id number] IV 03/12/25 08:30 03/15/25 05:29 75 MLS/HR Iron Sucrose 110 ml @ 110 mls/hr DAILY@1200 IV 03/12/25 12:00 03/16/25 12:59 03/15/25 11:46 110 MLS/HR Hydralazine HCl 10 mg Q6HP PRN IV 03/12/25 17:30 03/12/25 18:51 10 MG Lorazepam 1 mg Q8HP PRN IV 03/12/25 21:45 03/12/25 21:58 1 MG Ceftriaxone Sodium 50 ml @ 100 mls/hr DAILY@09 IV 03/13/25 09:00 03/15/25 10:27 100 MLS/HR Metronidazole 100 ml @ 100 mls/hr Q8HR IV 03/13/25 14:00 03/15/25 05:30 100 MLS/HR Examination Physical Examination General: Patient alert and oriented in person, place and time but is minimally drowsy. patient looks cachetic. Patient following commands. HEENT: Normocephalic, atraumatic, moist mucous membranes. NG tube was removed. Respiratory/pulmonary: Clear lungs bilaterally, no associated crackles or wheezes. Cardiovascular: Normal heart sounds S1 and S2 with no associated murmurs Abdomen: Abdomen nondistended, there is no pain to palpation in any of the abdominal quadrants, no palpable masses. Extremities: There is no peripheral edema present at the lower extremities. Skin: No rashes or pruritus, there is no sacral edema present at this time. Neurological: Intact cranial nerves with no focal neurologic deficits, patient is slightly drowsy. laboratory and microbiology Laboratory Tests 03/15/25 04:50 03/14/25 06:47 Test 03/15/25 04:50 Range/Units Serum Glucose 109 H 74-106 mg/dL Microbiology Date/Time Source Procedure Growth Status 03/13/25 11:53 Stool Stool Culture - Preliminary Resulted 03/13/25 11:53 Stool Shiga Toxin I & II - Final Resulted 03/12/25 11:55 Urine - [place] Urine Culture - Final Complete 03/11/25 15:36 Blood Blood Culture - Preliminary NO GROWTH AFTER 72 HOURS OF INCUBATION. Resulted Problem List/Assessment/Plan Problem List/Assessment/Plan Assessment/Plan Acute GI bleed upper/Lower Severe microcytic hypochromic anemia due to above Iron deficiency - continue monitoring with H&H and tranfuse if Hb <7 (today was 7.8) - pantoprazole 40 mg IV drip - Zofran 4 mg IV q.4 PRN - Currently on full liquid diet will progress as tolerated -GI on board performed EGD on 03/13/25 -EGD on 03/13/25 showed 1-2 cm sliding-type hiatal hernia with severe grade C linear erosive esophagitis with esophageal ulcers extending into the distal 15 cm of the esophagus persistent duodenal bulb ulcer seen just inside the pyloric opening which was large coalescing with a visible sutures; there was no active bleeding or visible vessel but there was acute on chronic inflammation deformity of the postbulbar duodenal area and I was able to see the 2nd part of the duodenum but there was area of debris and ongoing chronic ulceration inflammation and the endoscope was not advanced beyond this area mild gastritis and some old coffee-ground within the stomach -Gastrograffin study, showed contrast visible in colon by 3 hrs which is normal, no SBO at this time. Partial small Intestinal obstruction likely secondary to fecal impaction, resolved Cholelithiasis w/o cholecystitis C diff positive, asymptomatic -CT abdomen/pelvis showed low-grade distal partial obstruction due to fecal retention. - Start vancomycin PO 250mg QID for 10 days - Full liquid diet -NG tube was removed - IV NS @ 75ml/ hr - IV ceftriaxone 1 gm daily and IV metronidazole 500 mg 8hrly. -Fleet enema given on 03/13/25 -surgical consult - recommended bleeding scan hich was ordered, still pending GIOVANI on CKD likely prerenal/ VMN - continue IV fluids - monitor BMP - avoid nephrotoxic agents left small pleural effusion -chest x-ray Mild chronic appearing left basilar pulmonary airspace disease and possible small pleural effusion. history of perforated duodenal ulcer s/p exploratory laparotomy hypokalemia, resolved - repleted GI prophylaxis: Protonix 40 mg b.i.d. IV DVT prophylaxis: Not given as patient has GI bleeding Goals of care discussed with the patient for more than 25 minutes: Full code status Plan discussed with Dr Soto Plan discussed with: Patient Dietary Evaluation Review Recommendations by RD: Increase Calorie Intake, PPN/TPN Comments: Pt meets criteria 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 based on severe wt loss 35lb/24% in 5 month, intake <50% estimated requirement x 5 days, severe muscle wasting and fat depletion Nutrition Recommendation: 1) PPN/TPN if NPO continues 2) Advance to soft diet as medically feasible 3) Ensure Enlive 240ml TID if pt resumes PO diet 4) Monitor NPO status, lab values, weight trend, and I/O Expected Outcomes/Goals: Intake to meet >75% estimated needs GI symptoms to improve Fu 2-3 days Food and Nutrition Intake (Sev: <50% est energy req 5days Interpretation of weight loss: >10% in 6 months Body Fat Depletion (Severe): Mod to Severe Depletion Muscle Mass (Severe): Mod to Severe Depletion Protein Calorie Malnutrition: Severe Is there a minimum of two crit: Yes CC Plasma Assessment Blood Product Administration S: [id number] Date of Service: Mar 15, 2025 Billing Provider: HOLLAND SOTO MD Common Visit Codes: [id number] INP/OBS CARE(HIGH) SILAS STAHL RESIDENT Mar 15, 2025 13:14 HOLLAND SOTO MD Mar 15, 2025 22:41
[2025-03-15 13:57] LABS: Hematocrit 25.9 % (41.0-53.0); Hemoglobin 8.4 g/dL (13.5-17.5)
--- NOTE | 2025-03-15 14:23 | DVHINCON2 ---
Date of service: Mar 15, 2025 Reason for Consultation GIOVANI History of Present Illness 49 years old male with past medical history of CVA, dyslipidemia, hypertension, left knee surgery, Chronic kidney disease, history of severe Acute kidney injury needed inpatient dialysis previous admission here and then renal recovery presented with chief complaints of diarrhea for the past 5 to 6 days, he also has history of perforated duodenal ulcer status post exploratory laparotomy previous admission, cholecystitis, status post tracheostomy Patient presented to emergency room with hemoglobin of 4.2,s/p 3 U prbc,, s/p egd noted findings Past Medical History per hpi Past Surgical History per hpi Allergies: Coded Allergies: NO KNOWN ALLERGIES (Unverified , 08/22/23) Home Meds Active Scripts Hydralazine HCl (Hydralazine HCl) 25 Mg Tab, 25 MG PO BID for 30 Days, #60 TAB Prov:CHEYENNE PIKE [employer]TERNAL RELATIONS DIRECTOR 12/08/24 Labetalol HCl (Labetalol HCl) 200 Mg Tab, 200 MG PO BID for 30 Days, #60 TAB Prov:CHEYENNE PIKE EXTERNAL RELATIONS DIRECTOR 12/08/24 Nifedipine (Nifedipine Er) 60 Mg Tab, 2 TAB PO DAILY, #30 TAB 5 Refills Prov:CHEYENNE PIKE EXTERNAL RELATIONS DIRECTOR 12/08/24 Pantoprazole Sodium Sesquihydr (Protonix) 40 Mg Tab, 40 MG PO BID for 30 Days, #60 TAB Prov:CHEYENNE PIKE EXTERNAL RELATIONS DIRECTOR 12/08/24 Sucralfate (CARAFATE) 1 Gm Tab, 1 GM OR ACHS for 30 Days, #120 TAB Prov:CHYEENNE PIKE EXTERNAL RELATIONS DIRECTOR 12/08/24 Reported Medications Escitalopram Oxalate (ESCITALOPRAM OXALATE) 10 Mg Tab, 1 TAB PO DAILY for 30 Days, #30 10/06/24 Current Medications Current Medications Medications (Trade) Dose Ordered Sig/Wally Route PRN Reason Start Time Stop Time Status Last Admin Vancomycin HCl (Vancomycin Hydrochloride) 250 mg QID PO 03/15/25 18:00 Family History: Alcoholism G8 MOTHER Cardiovascular disease G8 MOTHER G8 FATHER FH: heart disease FH: lung cancer Hypertension G8 MOTHER Review of Systems Per HPI H&P Exam Vital Signs/I&O Vital Sign Date Time Temp Pulse Resp B/P (MAP) Pulse Ox O2 Delivery O2 Flow Rate FiO2 03/15/25 13:00 98.6 121 18 144/106 (119) 98 98.6 03/14/25 20:00 Room Air* 0 21 Intake and Output 03/14/25 03/15/25 19:00 07:00 Intake Total 550 ml 100 ml Output Total 400 ml 600 ml Balance 150 ml -500 ml Intake Oral 0 ml 0 ml IV Total 550 ml 100 ml Output Urine Total 400 ml 600 ml # Bowel Movements 1 Physical Exam General-cachectic male HEENT-normocephalic, no icterus, no pallor, neck supple Respiratory-fair air entry bilateral, no rhonchi, no wheeze [id number] heard, no murmurs appreciated Abdominal-soft, nontender, nondistended Musculoskeletal-no pedal edema, no calf tenderness Genitourinary-deferred Neuro-awake alert oriented x3, Psychiatric-not agitated, cooperative, Labs/Diagnostic Data Labs/Diagnostic Data Laboratory Tests Test 03/15/25 13:47 03/15/25 04:50 03/14/25 21:55 03/14/25 13:22 Range/Units Hemoglobin 8.4 L 7.8 L 8.0 L 9.3 #L 13.5-17.5 g/dL Hematocrit 25.9 L 23.9 L 24.5 #L 30.1 #L 41.0-53.0 % Sodium Level 145 # 136-145 mmol/L Potassium Level 4.4 3.5-5.1 mmol/L Chloride Level 111 H 98-107 mmol/L Carbon Dioxide Level 14 L 20-31 mmol/L Anion Gap 20 H 5-15 Blood Urea Nitrogen 82 #*H 9-23 mg/dL Creatinine 2.59 H 0.700-1.30 mg/dL Glomerular Filtration Rate Calc 29 >90 mL/min BUN/Creatinine Ratio 31.7 H 10.0-20.0 Serum Glucose 109 H 74-106 mg/dL Calcium Level 7.7 L 8.7-10.4 mg/dL Test 03/14/25 06:47 03/13/25 16:59 03/13/25 11:53 03/13/25 04:58 Range/Units White Blood Count 10.9 #H 16.7 #H 4.4-10.8 10^3/uL Red Blood Count 3.00 L 2.96 L 4.5-5.90 10^6/uL Hemoglobin 7.9 #L 6.8 *L 7.3 L 13.5-17.5 g/dL Hematocrit 24.0 #L 21.1 L 22.5 L 41.0-53.0 % Mean Corpuscular Volume 79.8 #L 75.9 L 80.0-100.0 fL Mean Corpuscular Hemoglobin 26.2 L 24.6 L 28.0-32.0 pg Mean Corpuscular Hemoglobin Concent 32.8 32.4 32.0-36.0 g/dL Red Cell Distribution Width 20.4 H 20.3 H 11.8-14.3 % Platelet Count 529 H 701 H 140-450 10^3/uL Mean Platelet Volume 6.9 6.6 L 6.9-10.8 fL Neutrophils (%) (Auto) 88.9 H 90.3 H 37.0-80.0 % Lymphocytes (%) (Auto) 4.8 L 3.2 L 10.0-50.0 % Monocytes (%) (Auto) 6.2 6.5 0.0-12.0 % Eosinophils (%) (Auto) 0.0 0.0 0.0-7.0 % Basophils (%) (Auto) 0.1 0.0 0.0-2.0 % Neutrophils # (Auto) 9.7 H 15.1 H 1.6-8.6 10 ^3/uL Lymphocytes # (Auto) 0.5 0.5 0.4-5.4 10 ^3/uL Monocytes # (Auto) 0.7 1.1 0-1.3 10 ^3/uL Eosinophils # (Auto) 0 0 0-0.8 10 ^3/uL Basophils # (Auto) 0 0 0-0.2 10 ^3/uL Nucleated Red Blood Cells 3.3 1.0 % Sodium Level 138 # 131 L 136-145 mmol/L Potassium Level 3.8 4.3 3.5-5.1 mmol/L Chloride Level 104 100 98-107 mmol/L Carbon Dioxide Level 14 L 14 L 20-31 mmol/L Anion Gap 20 H 17 H 5-15 Blood Urea Nitrogen 55 #H 43 H 9-23 mg/dL Creatinine 2.38 H 1.58 H 0.700-1.30 mg/dL Glomerular Filtration Rate Calc 32 53 >90 mL/min BUN/Creatinine Ratio 23.1 H 27.2 H 10.0-20.0 Serum Glucose 109 H 101 74-106 mg/dL Calcium Level 8.0 L 8.4 L 8.7-10.4 mg/dL Stool Occult Blood Positive Negative Stool Occult Blood Sample #3 Negative Thyroid Stimulating Hormone (TSH) 3.84 0.55-4.78 uIU/mL Test 03/13/25 03:46 03/13/25 01:33 03/12/25 21:50 03/12/25 16:51 Range/Units Ammonia 18 11-32 umol/L POC Glucose 101 70-106 mg/dl Potassium Level 3.5 3.5-5.1 mmol/L Hemoglobin 7.5 L 13.5-17.5 g/dL Hematocrit 22.9 L 41.0-53.0 % Test 03/12/25 13:12 03/12/25 10:20 03/12/25 09:02 03/12/25 05:00 Range/Units White Blood Count 11.1 H 4.4-10.8 10^3/uL Red Blood Count 2.95 L 4.5-5.90 10^6/uL Hemoglobin 7.5 L 13.5-17.5 g/dL Hematocrit 22.3 L 41.0-53.0 % Mean Corpuscular Volume 75.8 L 80.0-100.0 fL Mean Corpuscular Hemoglobin 25.4 L 28.0-32.0 pg Mean Corpuscular Hemoglobin Concent 33.5 32.0-36.0 g/dL Red Cell Distribution Width 20.1 H 11.8-14.3 % Platelet Count 598 H 140-450 10^3/uL Mean Platelet Volume 6.3 L 6.9-10.8 fL Neutrophils (%) (Auto) 85.1 H 37.0-80.0 % Lymphocytes (%) (Auto) 6.6 L 10.0-50.0 % Monocytes (%) (Auto) 8.1 0.0-12.0 % Eosinophils (%) (Auto) 0.0 0.0-7.0 % Basophils (%) (Auto) 0.2 0.0-2.0 % Neutrophils # (Auto) 9.4 H 1.6-8.6 10 ^3/uL Lymphocytes # (Auto) 0.7 0.4-5.4 10 ^3/uL Monocytes # (Auto) 0.9 0-1.3 10 ^3/uL Eosinophils # (Auto) 0 0-0.8 10 ^3/uL Basophils # (Auto) 0 0-0.2 10 ^3/uL Nucleated Red Blood Cells 0.5 % Sodium Level 129 L 136-145 mmol/L Potassium Level 2.6 L 2.9 L 3.5-5.1 mmol/L Chloride Level 97 L 98-107 mmol/L Carbon Dioxide Level 19 L 20-31 mmol/L Anion Gap 13 5-15 Blood Urea Nitrogen 34 H 9-23 mg/dL Creatinine 1.39 H 0.700-1.30 mg/dL Glomerular Filtration Rate Calc 61 >90 mL/min BUN/Creatinine Ratio 24.5 H 10.0-20.0 Serum Glucose 97 74-106 mg/dL Calcium Level 8.5 L 8.7-10.4 mg/dL Urine Creatinine 10.46 L 30.0-125.0 mg/dL Urine Protein/Creatinine Ratio 2.26 Urine Sodium 83 40-220 mmol/L Urine Total Protein 23.6 H 1-14 mg/dL Urine Color Light-yellow Yellow Urine Clarity Clear Clear Urine pH 5.5 5.0-9.0 Urine Specific [place] 1.013 1.001-1.035 Urine Protein Trace H Negative Urine Ketones Trace Negative Urine Blood Negative Negative /uL Urine Nitrite Negative Negative Urine Bilirubin Negative Negative Urine Urobilinogen Normal Negative mg/dL Urine Leukocyte Esterase Negative Negative /uL Urine RBC <1 0 - 3 /hpf Urine Microscopic WBC < 1 0-3 /HPF Urine Squamous Epithelial Cells None seen <5 /hpf Urine Bacteria None seen None Seen /hpf Urine Glucose Normal Normal mg/dL Urine Opiates Screen Neg NEGATIVE Urine Fentanyl Screen Neg NEGATIVE Urine Barbiturates Screen Neg NEGATIVE Urine Phencyclidine Screen Neg NEGATIVE Urine Amphetamines Screen Neg NEGATIVE Urine Benzodiazepines Screen Neg NEGATIVE Urine Cocaine Screen Neg NEGATIVE Urine Cannabinoids Screen Neg NEGATIVE Test 03/12/25 04:28 03/11/25 23:05 03/11/25 17:15 Range/Units White Blood Count 11.8 H 13.6 H 15.7 H 4.4-10.8 10^3/uL Red Blood Count 2.98 L 2.30 L 1.91 L 4.5-5.90 10^6/uL Hemoglobin 7.5 #L 5.6 #*L 4.2 *L 13.5-17.5 g/dL Hematocrit 22.9 #L 17.2 #L 14.1 L 41.0-53.0 % Mean Corpuscular Volume 76.8 L 74.6 L 73.6 L 80.0-100.0 fL Mean Corpuscular Hemoglobin 25.1 L 24.5 L 21.7 L 28.0-32.0 pg Mean Corpuscular Hemoglobin Concent 32.6 32.8 29.5 L 32.0-36.0 g/dL Red Cell Distribution Width 20.0 H 20.5 H 18.7 H 11.8-14.3 % Platelet Count 640 H 648 #H 284 140-450 10^3/uL Mean Platelet Volume 6.4 L 6.3 L 7.4 6.9-10.8 fL Neutrophils (%) (Auto) 83.5 H 85.8 H 88.0 H 37.0-80.0 % Lymphocytes (%) (Auto) 7.2 L 5.1 L 4.7 L 10.0-50.0 % Monocytes (%) (Auto) 9.1 9.0 7.0 0.0-12.0 % Eosinophils (%) (Auto) 0.1 0.0 0.2 0.0-7.0 % Basophils (%) (Auto) 0.1 0.1 0.1 0.0-2.0 % Neutrophils # (Auto) 9.9 H 11.7 H 13.8 H 1.6-8.6 10 ^3/uL Lymphocytes # (Auto) 0.9 0.7 0.7 0.4-5.4 10 ^3/uL Monocytes # (Auto) 1.1 1.2 1.1 0-1.3 10 ^3/uL Eosinophils # (Auto) 0 0 0 0-0.8 10 ^3/uL Basophils # (Auto) 0 0 0 0-0.2 10 ^3/uL Nucleated Red Blood Cells 0.3 0.3 0.4 % Prothrombin Time 10.2 9.3-11.8 sec Prothrombin Time INR 0.96 0.9-1.15 Activated Partial Thromboplast Time 24.8 24.5-34.5 SEC Sodium Level 130 L 129 L 136-145 mmol/L Potassium Level 2.8 L 3.3 L 3.5-5.1 mmol/L Chloride Level 95 L 94 L 98-107 mmol/L Carbon Dioxide Level 21 19 L 20-31 mmol/L Anion Gap 14 16 H 5-15 Blood Urea Nitrogen 42 #H 55 H 9-23 mg/dL Creatinine 1.66 H 1.77 H 0.700-1.30 mg/dL Glomerular Filtration Rate Calc 50 46 >90 mL/min BUN/Creatinine Ratio 25.3 H 31.1 H 10.0-20.0 Serum Glucose 94 93 74-106 mg/dL Calcium Level 8.5 L 8.4 L 8.7-10.4 mg/dL Magnesium Level 2.3 1.6-2.6 mg/dL Iron Level 39 L 65-175 ug/dL Total Iron Binding Capacity 321 250-425 ug/dL Percent Iron Saturation 12.1 L 20-55 % Ferritin 21.1 L 22-322 ng/mL Total Bilirubin 1.2 H 0.2-1.0 mg/dL Direct Bilirubin 0.4 H <0.3 mg/dL Aspartate Amino Transferase (AST) 36 13-40 U/L Alanine Aminotransferase (ALT) 16 7-40 U/L Alkaline Phosphatase 79 46-116 U/L Total Protein 7.4 5.7-8.2 g/dL Albumin 3.9 3.2-4.8 g/dL Vitamin B12 Level 852 211-911 pg/mL Vitamin D 25-Hydroxy 23.3 L 30.0-100 ng/mL Folic Acid 12.28 >5.38 ng/mL Plasma/Serum Blood Alcohol < 3.0 <10 mg/dL Reticulocyte Count (auto) 3.05 H 0.5-1.5 % Lactate Dehydrogenase 245 120-246 U/L Lactic Acid Level 1.9 0.4-2.0 mmol/L Microbiology Date/Time Source Procedure Growth Status 03/12/25 11:55 Urine - [place] Urine Culture - Final Complete Assessment Acute kidney injury likely hemodynamic mediated etiology in the setting of low hemoglobin/diarrhea/GI bleed GI bleeding C diff diarrhea Cachexia Metabolic acidosis secondary to diarrhea Anemia came in with Hb 4.2 status post 3 units PRBC History of severe Acute kidney injury needed dialysis previous admission Recommendations Switch to bicarb drip for 1 L and assess in a.m. Strict Is&Os We will follow closely Plan discussed with: Patient DAYANARA BLACKWOOD MD Mar 15, 2025 14:23
[2025-03-15] MEDS: SODIUM BICARB 50mEq/50ml Vial 50 ML in D5W 5% 1,000 ML IV ONE (15:05)
--- NOTE | 2025-03-15 15:48 | DVHPN2 ---
Progress Note - Dictate Date Seen: Mar 15, 2025 Medical Necessity Reason Pt with a Central, PICC or Fol: No Subjective No new complaints Hb 8.4 SBFT negative Renal fx worsening Three bowel movements recorded Stool for C diff was positive vital signs Vital Sign Date Time Temp Pulse Resp B/P (MAP) Pulse Ox O2 Delivery O2 Flow Rate FiO2 03/15/25 13:00 98.6 121 18 144/106 (119) 98 98.6 03/14/25 20:00 Room Air* 0 21 Total Intake and Output 03/14/25 03/14/25 03/15/25 15:00 23:00 07:00 Intake Total 350 ml 200 ml 100 ml Output Total 400 ml 600 ml Balance 350 ml -200 ml -500 ml medications Current Medications Medications Dose Ordered Sig/Wally Route Start Time Stop Time Status Last Admin Dose Admin Ondansetron HCl 4 mg Q4HP PRN IV 03/12/25 00:00 Pantoprazole Sodium 50 ml @ 10 mls/hr Q5H IV 03/12/25 08:30 03/15/25 11:46 10 MLS/HR Iron Sucrose 110 ml @ 110 mls/hr DAILY@1200 IV 03/12/25 12:00 03/16/25 12:59 03/15/25 11:46 110 MLS/HR Hydralazine HCl 10 mg Q6HP PRN IV 03/12/25 17:30 03/12/25 18:51 10 MG Lorazepam 1 mg Q8HP PRN IV 03/12/25 21:45 03/12/25 21:58 1 MG Ceftriaxone Sodium 50 ml @ 100 mls/hr DAILY@09 IV 03/13/25 09:00 03/15/25 10:27 100 MLS/HR Metronidazole 100 ml @ 100 mls/hr Q8HR IV 03/13/25 14:00 03/15/25 13:43 100 MLS/HR Vancomycin HCl 250 mg QID PO 03/15/25 18:00 objective General-cachectic male HEENT-normocephalic, no icterus, no pallor, neck supple Respiratory-fair air entry bilateral, no rhonchi, no wheeze [id number] heard, no murmurs appreciated Abdominal-soft, nontender, nondistended Musculoskeletal-no pedal edema, no calf tenderness Genitourinary-deferred Neuro-awake alert oriented x3, Psychiatric-not agitated, cooperative, laboratory and microbiology Laboratory Tests 03/15/25 13:47 03/15/25 04:50 03/14/25 06:47 Test 03/15/25 04:50 Range/Units Serum Glucose 109 H 74-106 mg/dL Problems(with codes): (1) Severe anemia (2) Leukocytosis (3) Duodenal ulcer disease (4) Gallstone (5) Appendicolith Prognosis PLAN Trial of clear liquid diet IV Protonix drip Carafate suspension Oral vancomycin Florastor Nephrology consult appreciated Surgical follow up appreciated, monitoring for any surgical leak Continue supportive care Nutritional supplementation due to protein calorie malnutrition Dietary Evaluation Review Recommendations by RD: Increase Calorie Intake, PPN/TPN Comments: Pt meets criteria 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 based on severe wt loss 35lb/24% in 5 month, intake <50% estimated requirement x 5 days, severe muscle wasting and fat depletion Nutrition Recommendation: 1) PPN/TPN if NPO continues 2) Advance to soft diet as medically feasible 3) Ensure Enlive 240ml TID if pt resumes PO diet 4) Monitor NPO status, lab values, weight trend, and I/O Expected Outcomes/Goals: Intake to meet >75% estimated needs GI symptoms to improve Fu 2-3 days Food and Nutrition Intake (Sev: <50% est energy req 5days Interpretation of weight loss: >10% in 6 months Body Fat Depletion (Severe): Mod to Severe Depletion Muscle Mass (Severe): Mod to Severe Depletion Protein Calorie Malnutrition: Severe Is there a minimum of two crit: Yes Plan discussed with: Patient CC Plasma Assessment Blood Product Administration S: [id number] GURJIT NOBLE MD Mar 15, 2025 15:48
[2025-03-15] MEDS: VANCOMYCIN HCL 250 MG CAP PO SCH (17:43)
[2025-03-15 22:11] LABS: Hemoglobin 7.8 g/dL (13.5-17.5)
[2025-03-15 22:12] LABS: Hematocrit 23.9 % (41.0-53.0)
[2025-03-16] VITALS (43 sets, daily range): BP systolic 108–146; BP diastolic 68–108; PULSE 61–122; RESP 18–26; TEMP 97.4–98.6; O2SAT 96–100
[2025-03-16 05:15] LABS: Hematocrit 24.4 % (41.0-53.0); Hemoglobin 7.9 g/dL (13.5-17.5); Mean Corpuscular Hemoglobin 26.8 pg (28.0-32.0); Mean Corpuscular Volume 82.4 fL (80.0-100.0); Nucleated Red Blood Cells % 1.4 %
[2025-03-16 05:26] LABS: Anion Gap 14 (5-15); Carbon Dioxide 28 mmol/L (20-31)
[2025-03-16 05:30] LABS: Calcium 7.9 mg/dL (8.7-10.4); Chloride 110 mmol/L (98-107); Potassium 3.3 mmol/L (3.5-5.1); Sodium 152 mmol/L (136-145)
[2025-03-16 05:32] LABS: BUN/Creatinine Ratio 25.4 (10.0-20.0)
[2025-03-16 05:33] LABS: Blood Urea Nitrogen 65 mg/dL (9-23); Glucose 151 mg/dL (74-106)
[2025-03-16] MEDS: POTASSIUM EFFERVESENT TAB 25 MEQ PO ONE (07:53)
--- NOTE | 2025-03-16 08:28 | DVHPNRES ---
Progress Note Date Seen: Mar 16, 2025 Resident Creating Document: JOSE F BONILLA RESIDENT Medical Necessity Reason Pt with a Central, PICC or Fol: No Subjective Review of Systems Jossue Perez he is a 49-year-old male past medical history of hypertension, hyperlipidemia, DVT, 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 The patient mentions he had passage of stool 7 times yesterday which was tarry black in color. Patient mentions he also had abdominal pain, nausea and a few episodes of vomiting for the last 2 days. He denies any fever,weakness or weight loss. He reports history of perforated duodenal ulcer s/p exp lap with prolonged ICU stay complicated with sepsis from cholecystitis s/p tracheostomy and removal. On arrival to the hospital, his hemoglobin was 4.2 and he had to be transfused with 2 units of PRBCs. He was kept NPO and NG tube placed. GI was consulted and they recommended continuing with IV Protonix drip scheduled patient for EGD on 03/13/2025. Past medical history: As above Past surgical history: left knee surgery Family history: Father due to CT in mid 40s, mother had lung cancer social history: smoked 1 pack per day for 30 years, vapes nicotine now, takes marijuana once in a while via bong, used to drink 6 beers per day and some shots for past 30 years but stopped after recent surgery Allergies: None code status: Full code Patient seen and examined at bedside. Patient is alert and oriented to time, place person and responding to all questions. Patient looks in mid distress. Constitutional: No: Fever, Chills, Sweats, Weakness, Malaise Eyes: No: Pain, Vision change, Conjunctivae inflammation, Eyelid inflammation, Redness ENT: No: Ear pain, Ear discharge, Nose pain, Nose discharge, Nose congestion, Mouth pain, Mouth swelling, Throat pain, Throat swelling Respiratory: No: Cough, Dry, Shortness of breath, SOB with excertion, Wheezing, Hemoptysis, Pleuritic Pain, Sputum, Wheezing Cardiovascular: No: Chest Pain, Palpitations, Orthopnea, Paroxysmal Noc. Dyspnea, Edema, Lt Headedness Gastrointestinal: Melena Musculoskeletal: No: other, neck pain, shoulder pain, arm pain, back pain, hand pain, leg pain, foot pain Skin: No: Rash, Lesions, Jaundice, Bruising, Other Neurological: No: Weakness, Numbness, Incoordination, Change in speech, Confusion, Seizures Allergies: Coded Allergies: NO KNOWN ALLERGIES (Unverified , 08/22/23) 03/13/25- the patient was seen at bedside today. The patient underwent EGD which showed 1-2 cm sliding-type hiatal hernia with severe grade C linear erosive esophagitis with esophageal ulcers extending into the distal 15 cm of the esophagus, persistent duodenal bulb ulcer seen just inside the pyloric opening which was large coalescing with a visible sutures; there was no active bleeding or visible vessel but there was acute on chronic inflammation, deformity of the postbulbar duodenal area and I was able to see the 2nd part of the duodenum but there was area of debris and ongoing chronic ulceration inflammation and the endoscope was not advanced beyond this area and mild gastritis and some old coffee-ground within the stomach. Upper GI series with Gastrografin was ordered by GI. His hemoglobin dropped to 6.8, 1 pack of RBCs was transfused. Surgical consult was placed,pending evaluation. 03/14/25- the patient was seen at bedside today. Labs and charts were reviewed. Gastrografin study was done, pending results. Surgery was consulted and they recommended bleeding scan. Patient will be kept NPO. We will do H&H q8 hrly and transfuse if Hgb is <7. Patient is C diff positive. 03/15/25-Patient seen and examined at bedside. Yesterday EGD was performed showing grade C esophagitis, there was a duodenal bulb ulcer with debris and chronic inflammation. Scope was not able to past post vulvar duodenum. Small bowel series with Gastrografin was performed and contrast was visible in the colon by 3:00 hours which was unremarkable. SBO has apparently resolved by this time. We started the patient on clear liquid diet. Blood scan nuclear medicine was ordered still pending. Patient is hungry requesting diet. Patient denies abdominal pain, shortness of breath, chest pain, diarrhea, fever/chills or any other symptoms. Hb today is 7.8 will monitor h and h closely. 03/16/25- the patient was seen at bedside today. The patient was doing well in the morning, but looked more drowsy than yesterday. Hence a head CT was ordered. Patient later developed progressive shortness of breath and failed BiPAP trial, eventually requiring intubation due to the possibility of aspiration. Hemoglobin was 8.4 The patient was transferred to ICU. ATTENDING NOTE: See patient today with resident. Patient speech is very slurred. Patient state that he has been dealing with the weakness of hand, feet and arm, rapid weight loss, slurred speech and difficulty of swallowing for about 1 month. He also become very clumpsy, tripping and falling all the time. He said his face became stiff and increase tired and shortness of breath.???ALS versus CVA. Will order CT head. Will consult Dr Black, neurologist. Objective vital signs Vital Sign Date Time Temp Pulse Resp B/P (MAP) Pulse Ox O2 Delivery O2 Flow Rate FiO2 03/16/25 08:18 Nasal Cannula* 2 28 03/16/25 04:55 97.7 122 18 141/104 (116) 97 97.7 Total Intake and Output 03/15/25 03/15/25 03/16/25 15:00 23:00 07:00 Intake Total 460 ml 650 ml 300 ml Output Total 1699 ml 1900 ml Balance 460 ml -1049 ml -1600 ml medications Current Medications Medications Dose Ordered Sig/Wally Route Start Time Stop Time Status Last Admin Dose Admin Ondansetron HCl 4 mg Q4HP PRN IV 03/12/25 00:00 Pantoprazole Sodium 50 ml @ 10 mls/hr Q5H IV 03/12/25 08:30 03/16/25 07:30 10 MLS/HR Iron Sucrose 110 ml @ 110 mls/hr DAILY@1200 IV 03/12/25 12:00 03/16/25 12:59 03/15/25 11:46 110 MLS/HR Hydralazine HCl 10 mg Q6HP PRN IV 03/12/25 17:30 03/12/25 18:51 10 MG Lorazepam 1 mg Q8HP PRN IV 03/12/25 21:45 03/12/25 21:58 1 MG Ceftriaxone Sodium 50 ml @ 100 mls/hr DAILY@09 IV 03/13/25 09:00 03/15/25 10:27 100 MLS/HR Metronidazole 100 ml @ 100 mls/hr Q8HR IV 03/13/25 14:00 03/16/25 06:05 100 MLS/HR Vancomycin HCl 250 mg QID PO 10/26/25 18:00 03/15/25 17:43 250 MG Examination Pt is lying on bed. Patient looks weak and cachectic. Patient has respiratory distress with respiratory acidosis on ABG. Patient intubated and transferred to ICU. General Appearance: Alert, Oriented X3, Cooperative, Not in acute distress HEENT: Atraumatic, Mucous membranes moist/pink, pale mucosa, tracheostomy scar present on neck Respiratory: Clear to auscultation, Normal air movement, No added sounds Cardiovascular: Regular rate, Normal S1, Normal S2, No murmurs Abdominal: Active bowel sounds, Soft, no distention, no tenderness, Extremities: No edema, Normal pulses, No tenderness/swelling Skin: No Significant rash, except past surgical scars Neuro: Normal speech, sensorimotor deficits none Psych/Mental Status: Mental status NL, Mood NL RAJESH (03/12/25): Anal skin tag was noted with no external hemorrhoids, no anal fissures or hemorrhoids,normal rectal tone and empty vault Nurse was present as cost control specialist during the examination. laboratory and microbiology Laboratory Tests 03/16/25 04:54 Test 03/16/25 04:54 Range/Units Serum Glucose 151 H 74-106 mg/dL Microbiology Date/Time Source Procedure Growth Status 03/13/25 11:53 Stool Stool Culture - Preliminary Resulted 03/13/25 11:53 Stool Shiga Toxin I & II - Final Resulted 03/12/25 11:55 Urine - Barrios [place] Urine Culture - Final Complete 03/11/25 15:36 Blood Blood Culture - Preliminary NO GROWTH AFTER 72 HOURS OF INCUBATION. Resulted Labs and/or images reviewed: Labs reviewed by me, Image(s) reviewed by me Problem List/Assessment/Plan Problem List/Assessment/Plan # Acute GI bleed upper vs lower # Severe microcytic hypochromic anemia due to above # Iron deficiency - continue monitoring with H&H and tranfuse if Hb <7 - pantoprazole 40 mg IV b.i.d. - Zofran 4 mg IV q.4 PRN -keep NPO -EGD on 03/13/25 showed 1-2 cm sliding-type hiatal hernia with severe grade C linear erosive esophagitis with esophageal ulcers extending into the distal 15 cm of the esophagus persistent duodenal bulb ulcer seen just inside the pyloric opening which was large coalescing with a visible sutures; there was no active bleeding or visible vessel but there was acute on chronic inflammation deformity of the postbulbar duodenal area and I was able to see the 2nd part of the duodenum but there was area of debris and ongoing chronic ulceration inflammation and the endoscope was not advanced beyond this area mild gastritis and some old coffee-ground within the stomach -Gastrograffin study ordered-pending results # Partial small Intestinal obstruction likely secondary to fecal impaction. # Cholelithiasis #C diff positive -CT abdomen/pelvis showed low-grade distal partial obstruction due to fecal retention. - NPO -NG tube placed for decompression - IV NS @ 75ml/ hr - IV ceftriaxone 1 gm daily and IV metronidazole 500 mg 8hrly. -Fleet enema given on 03/13/25 -surgical consult - recommended bleeding scan # GIOVANI on CKD likely prerenal/ VMN - continue IV fluids - monitor BMP - avoid nephrotoxic agents #left small pleural effusion -chest x-ray Mild chronic appearing left basilar pulmonary airspace disease and possible small pleural effusion. - monitor with repeat chest xray #history of perforated duodenal ulcer s/p exploratory laparotomy #hypokalemia - repleted GI prophylaxis: Protonix 40 mg b.i.d. IV DVT prophylaxis: Not given as patient has GI bleeding Diet: NPO Goals of care discussed with the patient for more than 27 minutes: Full code status Plan discussed with Dr Grant Plan discussed with: Spouse Dietary Evaluation Review Recommendations by RD: Increase Calorie Intake, PPN/TPN Comments: Pt meets criteria 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 based on severe wt loss 35lb/24% in 5 month, intake <50% estimated requirement x 5 days, severe muscle wasting and fat depletion Nutrition Recommendation: 1) PPN/TPN if NPO continues 2) Advance to soft diet as medically feasible 3) Ensure Enlive 240ml TID if pt resumes PO diet 4) Monitor NPO status, lab values, weight trend, and I/O Expected Outcomes/Goals: Intake to meet >75% estimated needs GI symptoms to improve Fu 2-3 days Food and Nutrition Intake (Sev: <50% est energy req 5days Interpretation of weight loss: >10% in 6 months Body Fat Depletion (Severe): Mod to Severe Depletion Muscle Mass (Severe): Mod to Severe Depletion Protein Calorie Malnutrition: Severe Is there a minimum of two crit: Yes CC Plasma Assessment Blood Product Administration S: [id number] Date of Service: Mar 16, 2025 Billing Provider: HOLLAND GRANT MD Common Visit Codes: [id number] INP/OBS CARE(HIGH) JOSE F BONILLA RESIDENT Mar 16, 2025 08:28 HOLLAND GRANT MD Mar 16, 2025 21:24
[2025-03-16] MEDS: Ensure HIGH Protein Chocolate 8oz Bottle PO SCH (12:00)
--- NOTE | 2025-03-16 12:16 | DVHPN2 ---
Progress Note Date Seen: Mar 16, 2025 Resident Creating Document: RONALDO RAWLS RESDIENT Medical Necessity Reason Pt with a Central, PICC or Fol: No Subjective Review of Systems Patient seen and examined at the bedside. Patient is alert, oriented to place and person, lethargic. Patient reports: No new complaints Other Systems: Patient seen and examined by myself today on rounds with the medicine resident I agree with the assessment and plan Objective vital signs Vital Sign Date Time Temp Pulse Resp B/P (MAP) Pulse Ox O2 Delivery O2 Flow Rate FiO2 03/16/25 08:18 Nasal Cannula* 2 28 03/16/25 08:00 116 03/16/25 04:55 97.7 18 141/104 (116) 97 97.7 Total Intake and Output 03/15/25 03/15/25 03/16/25 15:00 23:00 07:00 Intake Total 460 ml 650 ml 300 ml Output Total 1699 ml 1900 ml Balance 460 ml -1049 ml -1600 ml medications Current Medications Medications Dose Ordered Sig/Wally Route Start Time Stop Time Status Last Admin Dose Admin Ondansetron HCl 4 mg Q4HP PRN IV 03/12/25 00:00 Pantoprazole Sodium 50 ml @ 10 mls/hr Q5H IV 03/12/25 08:30 03/16/25 07:30 10 MLS/HR Iron Sucrose 110 ml @ 110 mls/hr DAILY@1200 IV 03/12/25 12:00 03/16/25 12:59 03/16/25 11:44 110 MLS/HR Hydralazine HCl 10 mg Q6HP PRN IV 03/12/25 17:30 03/12/25 18:51 10 MG Lorazepam 1 mg Q8HP PRN IV 03/12/25 21:45 03/12/25 21:58 1 MG Ceftriaxone Sodium 50 ml @ 100 mls/hr DAILY@09 IV 03/13/25 09:00 03/16/25 08:43 100 MLS/HR Metronidazole 100 ml @ 100 mls/hr Q8HR IV 03/13/25 14:00 03/16/25 06:05 100 MLS/HR Vancomycin HCl 250 mg QID PO 03/15/25 18:00 03/15/25 17:43 250 MG Enteral Nutritional Formula 240 ml TIDWM PO 03/16/25 12:00 Examination General Appearance: Alert, Oriented X2, cooperative HEENT: Atraumatic, PERRLA, EOMI, dry mucous murmur Respiratory: Clear to auscultation, Normal air movement Cardiovascular: Regular rate, Normal S1, Normal S2, No murmurs, no chest wall tenderness Abdominal: Normal bowel sounds, Soft, No tenderness, No hepatospenomegaly, No masses Extremities: Right upper and lower extremity weakness Skin: No rashes, No breakdown, No significant lesion Neuro: Normal gait, Normal speech, Strength at 5/5 X4 ext, Normal tone, Sensation intact, Cranial nerves 3-12 NL, Reflexes 2+ Psych/Mental Status: Mental status NL, Mood NL laboratory and microbiology Laboratory Tests 03/16/25 04:54 Test 03/16/25 04:54 Range/Units Serum Glucose 151 H 74-106 mg/dL Microbiology Date/Time Source Procedure Growth Status 03/13/25 11:53 Stool Stool Culture - Final Complete 03/13/25 11:53 Stool Shiga Toxin I & II - Final Complete 03/12/25 11:55 Urine - Barrios [place] Urine Culture - Final Complete 03/11/25 15:36 Blood Blood Culture - Preliminary NO GROWTH AFTER 72 HOURS OF INCUBATION. Resulted Labs and/or images reviewed: Labs reviewed by me, Image(s) reviewed by me Problem List/Assessment/Plan Problem List/Assessment/Plan 49 years old male with past medical history of CVA, dyslipidemia, hypertension, left knee surgery, Chronic kidney disease, history of severe Acute kidney injury needed inpatient dialysis previous admission here and then renal recovery presented with chief complaints of diarrhea for the past 5 to 6 days, he also has history of perforated duodenal ulcer status post exploratory laparotomy previous admission, cholecystitis, status post tracheostomy Patient presented to emergency room with hemoglobin of 4.2,s/p 3 U prbc,, s/p egd noted findings. Assessment: GIOVANI, on CKD 2, secondary to ATN, FeNa > 2% Hypernatremia due to dehydration Duodenal ulcer leading to GI bleeding and severe anemia, status post 3 PRBC transfusion History of CVA Hypertension C diff diarrhea Severe protein malnutrition/cachexia Hypokalemia Left kidney atrophy reported on CT scan Hypocalcemia Plan/recommendation: (Dr. Anderson) Kidney function slightly improving Increased urine output * D5W at 100 mL/hour * Repleted potassium * Check phosphorus 25 hydroxyvitamin D and PTH * Check renal ultrasound, urine sodium and creatinine * We will follow up with the patient Thank you for giving us the opportunity to take care of the outpatient. Please call back if you have any questions/concerns. Plan discussed with: Patient, Other (RN) Dietary Evaluation Review Recommendations by RD: Increase Calorie Intake, PPN/TPN Comments: Pt meets criteria 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 based on severe wt loss 35lb/24% in 5 month, intake <50% estimated requirement x 5 days, severe muscle wasting and fat depletion Nutrition Recommendation: 1) PPN/TPN if NPO continues 2) Advance to soft diet as medically feasible 3) Ensure Enlive 240ml TID if pt resumes PO diet 4) Monitor NPO status, lab values, weight trend, and I/O Expected Outcomes/Goals: Intake to meet >75% estimated needs GI symptoms to improve Fu 2-3 days Food and Nutrition Intake (Sev: <50% est energy req 5days Interpretation of weight loss: >10% in 6 months Body Fat Depletion (Severe): Mod to Severe Depletion Muscle Mass (Severe): Mod to Severe Depletion Protein Calorie Malnutrition: Severe Is there a minimum of two crit: Yes CC Plasma Assessment Blood Product Administration S: [id number] RONALDO RAWLS Mar 16, 2025 12:16 MILADY ANDERSON MD Mar 16, 2025 13:38
--- NOTE | 2025-03-16 13:12 | DVH ---
US KIDNEY HISTORY: CKD COMPARISON: US LIVER on DOS: 03/12/25, XY KUB ABDOMEN SINGLE VIEW on DOS: 11/23/24, XY KUB ABDOMEN SING LE VIEW on DOS: 11/21/24 TECHNIQUE: Transverse and longitudinal grayscale and color doppler images were obtained of the kidney s and bladder. FINDINGS: Right kidney: Size: 8.6 cm Cortical thickness: Normal Echogenicity: Normal Stones: None Masses: None Hydronephrosis: None Ureters: Not well visualized. Other: None Bladder: Barrios noted in the bladder. Other: None. IMPRESSION: Unremarkable renal ultrasound.
[2025-03-16 14:11] LABS: Hematocrit 26.5 % (41.0-53.0); Hemoglobin 8.4 g/dL (13.5-17.5)
--- NOTE | 2025-03-16 14:37 | DVH ---
INDICATION: sob TECHNIQUE: Frontal view of the chest. COMPARISON: XY CHEST PORTABLE on DOS: 03/15/25, XY CHEST XRAY 1 VIEW on DOS: 03/13/25, XY CHEST XRAY 1 VIEW on DOS: 03/13/25, XY CHEST PORTABLE on DOS: 03/12/25, CT CHEST WITHOUT CONTRAST on DOS: 01/21/25 , XY CHEST PORTABLE on DOS: 03/15/25 FINDINGS: Lines and tubes: None Cardiomediastinal silhouette: normal Pulmonary vasculature: Prominent Lung expansion: normal Lung airspace: normal Lung interstitium: normal Pleura: normal Pneumothorax: no Bones: Unremarkable Other: no IMPRESSION: No acute intrathoracic abnormality.
[2025-03-16 14:57] LABS: Base Excess -1.0 mmol/L (-2.0-3.0)
[2025-03-16] MEDS: IPRATROPIUM BROM 0.5 MG/2.5ML INH SOL NEB ONE (15:22)
[2025-03-16] MEDS: ALBUTEROL SULF 2.5 MG/0.5ML(0.5%) NEB SOLN NEB ONE (15:22)
[2025-03-16] MEDS: ETOMIDATE (2MG/ML) 20ML VIAL IV ONE ×2 (15:41→16:40)
[2025-03-16] MEDS: SUCCINYLCHOLINE CHLORIDE 20 MG/ML 10ML VIAL IV ONE (15:42)
[2025-03-16] MEDS: ROCURONIUM 10MG/ML 10ML VIAL IV ONE ×2 (15:42→15:45)
[2025-03-16] MEDS ORDERED: fentaNYL Drip 2500mCg/250mlNS 250 ML IV SCH (16:30)
[2025-03-16] MEDS ORDERED: MIDAZOLAM DRIP 100 mg/100mL NS 100 ML IV SCH (16:30)
[2025-03-16] MEDS: MIDAZOLAM DRIP 100 mg/100mL NS 100 ML IV ONE (16:33)
[2025-03-16] MEDS: fentaNYL Drip 2500mCg/250mlNS 250 ML IV ONE (16:33)
[2025-03-16] MEDS: MIDAZOLAM DRIP 100 mg/100mL NS 100 ML IV SCH (16:39)
[2025-03-16] MEDS: fentaNYL Drip 2500mCg/250mlNS 250 ML IV SCH (16:42)
[2025-03-16] MEDS ORDERED: TPN PER PHARMACY 0 ML IV SCH ×2 (17:00→17:15)
--- NOTE | 2025-03-16 17:03 | DVHNC2 ---
Intubation Indication: Respiratory Insufficiency, Airway Protection Prep: Preoxygenation Pretreated with: Other Medicated with: Atracurium (ETOMIDATE) Intubation Approach: Orotracheal Intubation size: cm (7.5) Notes A time out was performed. My hands were washed immediately prior to the procedure. I wore a surgical cap, mask with protective eyewear, gown and gloves throughout the procedure. The patient was placed on a package sorter including continuous pulse oximetry. Rapid Sequence Intubation was conducted. The patient received 14 mg of etomidate_ for induction and _46 mg of rocuronium_ for adequate paralysis. Cricoid pressure was maintained from time induction agent was given to time of cuff balloon inflation. Using a GLIDOSCOPE and a size _8 endotracheal tube with stylet, the patient was intubated on the 1st_ attempt. The stylet was removed and cuff balloon was inflated. Appropriate endotracheal tube position was confirmed by direct visualization of vocal cord passage, fogging of the tube, CO2 colormetric indicator and symmetric breath sounds. The tube was secured at 24_ cm at the lips. Post intubation chest x-ray is pending at this time. Date of Service: Mar 16, 2025 Billing Provider: LINDA PATRICIO MD Common Visit Codes: PROCEDURE ONLY Procedure Codes: [id number] SKY DASH RESIDENT Mar 16, 2025 17:03 LINDA PATRICIO MD Mar 17, 2025 10:01
--- NOTE | 2025-03-16 17:06 | DVHNC2 ---
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 My hands were washed immediately prior to the procedure. I wore a surgical cap, mask with protective eyewear, full gown and sterile gloves throughout the procedure. The patient was placed in Trendelenb urg position. RIGHT chest region was prepped using chlorhexidine scrub and draped in sterile fashion using a full drape and sterile probe cover and sterile gel employed. The medial and lateral heads of the sternocleidomastoid muscle were identified as was the carotid pulse. The Internal Jugular vein was identified using the ultrasound. Anesthesia was achieved over the vein using 1% lidocaine. Using real-time out of plane guidance, the introducer needle was inserted into the Internal Jugular vein under direct ultrasound visualization. Venous blood was withdrawn. The syringe was removed and a guidewire was advanced into the introducer needle. The guidewire was visualized in the Internal Jugular Vein by ultrasound. A small incision was made at the skin surface with a scalpel and the introducer needle was exchanged for a dilator over the guidewire. After appropriate dilation was obtained, the dilator was exchanged over the wire for a _ central venous catheter. The wire was removed and the catheter was sutured in place at _ cm. A sterile sorbaview shield was placed over the catheter at the insertion site. The patient tolerated the procedure without any hemodynamic compromise. At time of procedure completion, all ports aspirated and flushed properly. Post-procedure chest x-ray is pending at this time. Estimated blood loss is _. Date of Service: Mar 16, 2025 Billing Provider: LINDA PATRICIO MD Common Visit Codes: PROCEDURE ONLY Procedure Codes: [id number] NON-TUNNEL CV CATH FARDOUS,SKY SCHWAB Mar 16, 2025 17:06 LINDA PATRICIO MD Mar 17, 2025 10:02
[2025-03-16] MEDS: PANTOPRAZOLE 40mg/50ML NS AE 50 ML IV SCH (17:15)
[2025-03-16] MEDS ORDERED: DEXTROSE (50%) 50ML SYRG IV SCH (17:15)
[2025-03-16] MEDS: SODIUM CHLORIDE 0.9% 500 ML IV ONE (17:16)
--- NOTE | 2025-03-16 17:24 | DVHPN2 ---
Progress Note - Dictate Date Seen: Mar 16, 2025 Medical Necessity Reason Pt with a Central, PICC or Fol: No Subjective Patient was better in the morning but later developed progressive shortness of breath and failed BiPAP trial He eventually required intubation due to unclear reason with the possibility of aspiration or cardiac event Patient has been transported to ICU No active GI bleeding reported Hb 8.4 SBFT negative Renal fx stable Three bowel movements recorded Stool for C diff was positive vital signs Vital Sign Date Time Temp Pulse Resp B/P (MAP) Pulse Ox O2 Delivery O2 Flow Rate FiO2 03/16/25 16:06 102 24 146/108 (121) 100 60 03/16/25 15:01 97.7 97.7 03/16/25 14:42 Facial BiPAP Mask 03/16/25 08:18 2 Total Intake and Output 03/15/25 03/15/25 03/16/25 15:00 23:00 07:00 Intake Total 460 ml 650 ml 300 ml Output Total 1699 ml 1900 ml Balance 460 ml -1049 ml -1600 ml medications Current Medications Medications Dose Ordered Sig/Wally Route Start Time Stop Time Status Last Admin Dose Admin Ondansetron HCl 4 mg Q4HP PRN IV 03/12/25 00:00 Pantoprazole Sodium 50 ml @ 10 mls/hr Q5H IV 03/12/25 08:30 03/16/25 15:17 10 MLS/HR Hydralazine HCl 10 mg Q6HP PRN IV 03/12/25 17:30 03/12/25 18:51 10 MG Lorazepam 1 mg Q8HP PRN IV 03/12/25 21:45 03/12/25 21:58 1 MG Ceftriaxone Sodium 50 ml @ 100 mls/hr DAILY@09 IV 03/13/25 09:00 03/16/25 08:43 100 MLS/HR Metronidazole 100 ml @ 100 mls/hr Q8HR IV 03/13/25 14:00 03/16/25 06:05 100 MLS/HR Dextrose 1,000 ml @ 100 mls/hr Q10H IV 03/16/25 12:15 Midazolam HCl 100 ml @ 1 mls/hr Q24H IV 03/16/25 16:30 03/16/25 16:39 1 MLS/HR Fentanyl Citrate 250 ml @ 2.5 mls/hr Q24H IV 03/16/25 16:30 03/16/25 16:42 2.5 MLS/HR Amino Acids 0 ml @ 0 mls/hr PER PHARMACY IV 03/16/25 17:00 Diagnostic Test (Pha) 1 strip Q6HR 03/16/25 18:00 Insulin Human Regular FOLLOW SLIDING SCALE Q6HR SC 03/16/25 18:00 Dextrose 50 ml UD IV 03/16/25 17:15 Amino Acids 0 ml @ 0 mls/hr PER PHARMACY IV 03/16/25 17:15 UNV Pantoprazole Sodium 50 ml @ 10 mls/hr Q5H IV 03/16/25 17:15 UNV objective General-cachectic male HEENT-normocephalic, no icterus, no pallor, neck supple Respiratory-fair air entry bilateral, no rhonchi, no wheeze [id number] heard, no murmurs appreciated Abdominal-soft, nontender, nondistended Musculoskeletal-no pedal edema, no calf tenderness Genitourinary-deferred Neuro-awake alert oriented x3, Psychiatric-not agitated, cooperative, laboratory and microbiology Laboratory Tests 03/16/25 13:59 03/16/25 04:54 Test 03/16/25 04:54 Range/Units Serum Glucose 151 H 74-106 mg/dL Problems(with codes): (1) C. difficile colitis (2) Appendicolith (3) Gallstone (4) Duodenal ulcer disease (5) Severe anemia (6) Leukocytosis (7) Elevated liver enzymes Prognosis Plan NG tube to low intermittent suction Keep NPO for now for the next 24-48 hours IV fluid hydration IV antibiotics IV Protonix drip KUB and chest x-ray in the morning If patient is stable then we can attempt initiating NG tube feedings Continue broad-spectrum antibiotics Overall his prognosis remains guarded and hospitalist team is monitoring and following patient Dietary Evaluation Review Recommendations by RD: Increase Calorie Intake, PPN/TPN Comments: Pt meets criteria 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 based on severe wt loss 35lb/24% in 5 month, intake <50% estimated requirement x 5 days, severe muscle wasting and fat depletion Nutrition Recommendation: 1) PPN/TPN if NPO continues 2) Advance to soft diet as medically feasible 3) Ensure Enlive 240ml TID if pt resumes PO diet 4) Monitor NPO status, lab values, weight trend, and I/O Expected Outcomes/Goals: Intake to meet >75% estimated needs GI symptoms to improve Fu 2-3 days Food and Nutrition Intake (Sev: <50% est energy req 5days Interpretation of weight loss: >10% in 6 months Body Fat Depletion (Severe): Mod to Severe Depletion Muscle Mass (Severe): Mod to Severe Depletion Protein Calorie Malnutrition: Severe Is there a minimum of two crit: Yes Plan discussed with: Other (Dr Arnie Sanderson) CC Plasma Assessment Blood Product Administration S: [id number] GURJIT NOBLE MD Mar 16, 2025 17:24
--- NOTE | 2025-03-16 17:30 | DVHPNRES ---
Progress Note Medical Necessity Reason Pt with a Central, PICC or Fol: No Objective vital signs Vital Sign Date Time Temp Pulse Resp B/P (MAP) Pulse Ox O2 Delivery O2 Flow Rate FiO2 03/16/25 16:06 102 24 146/108 (121) 100 60 03/16/25 15:01 97.7 97.7 03/16/25 14:42 Facial BiPAP Mask 03/16/25 08:18 2 Total Intake and Output 03/15/25 03/15/25 03/16/25 14:59 22:59 06:59 Intake Total 460 ml 650 ml 300 ml Output Total 1699 ml 1900 ml Balance 460 ml -1049 ml -1600 ml medications Current Medications Medications Dose Ordered Sig/Wally Route Start Time Stop Time Status Last Admin Dose Admin Ondansetron HCl 4 mg Q4HP PRN IV 03/12/25 00:00 Pantoprazole Sodium 50 ml @ 10 mls/hr Q5H IV 03/12/25 08:30 03/16/25 15:17 10 MLS/HR Hydralazine HCl 10 mg Q6HP PRN IV 03/12/25 17:30 03/12/25 18:51 10 MG Lorazepam 1 mg Q8HP PRN IV 03/12/25 21:45 03/12/25 21:58 1 MG Ceftriaxone Sodium 50 ml @ 100 mls/hr DAILY@09 IV 03/13/25 09:00 03/16/25 08:43 100 MLS/HR Metronidazole 100 ml @ 100 mls/hr Q8HR IV 03/13/25 14:00 03/16/25 06:05 100 MLS/HR Dextrose 1,000 ml @ 100 mls/hr Q10H IV 03/16/25 12:15 Midazolam HCl 100 ml @ 1 mls/hr Q24H IV 03/16/25 16:30 03/16/25 16:39 1 MLS/HR Fentanyl Citrate 250 ml @ 2.5 mls/hr Q24H IV 03/16/25 16:30 03/16/25 16:42 2.5 MLS/HR Amino Acids 0 ml @ 0 mls/hr PER PHARMACY IV 03/16/25 17:00 Diagnostic Test (Pha) 1 strip Q6HR 03/16/25 18:00 Insulin Human Regular FOLLOW SLIDING SCALE Q6HR SC 03/16/25 18:00 Dextrose 50 ml UD IV 03/16/25 17:15 Amino Acids 0 ml @ 0 mls/hr PER PHARMACY IV 03/16/25 17:15 UNV Pantoprazole Sodium 50 ml @ 10 mls/hr Q5H IV 03/16/25 17:15 UNV laboratory and microbiology Laboratory Tests 03/16/25 13:59 03/16/25 04:54 Test 03/16/25 04:54 Range/Units Serum Glucose 151 H 74-106 mg/dL Microbiology Date/Time Source Procedure Growth Status 03/13/25 11:53 Stool Stool Culture - Final Complete 03/13/25 11:53 Stool Shiga Toxin I & II - Final Complete 03/12/25 11:55 Urine - [place] Urine Culture - Final Complete 03/11/25 15:36 Blood Blood Culture - Preliminary NO GROWTH AFTER 72 HOURS OF INCUBATION. Resulted Problem List/Assessment/Plan Problem List/Assessment/Plan # Acute GI bleed upper vs lower # Severe microcytic hypochromic anemia due to above # Iron deficiency - continue monitoring with H&H and tranfuse if Hb <7 - pantoprazole 40 mg IV b.i.d. - Zofran 4 mg IV q.4 PRN -keep NPO -EGD on 03/13/25 showed 1-2 cm sliding-type hiatal hernia with severe grade C linear erosive esophagitis with esophageal ulcers extending into the distal 15 cm of the esophagus persistent duodenal bulb ulcer seen just inside the pyloric opening which was large coalescing with a visible sutures; there was no active bleeding or visible vessel but there was acute on chronic inflammation deformity of the postbulbar duodenal area and I was able to see the 2nd part of the duodenum but there was area of debris and ongoing chronic ulceration inflammation and the endoscope was not advanced beyond this area mild gastritis and some old coffee-ground within the stomach -Gastrograffin study ordered-pending results # Partial small Intestinal obstruction likely secondary to fecal impaction. # Cholelithiasis #C diff positive -CT abdomen/pelvis showed low-grade distal partial obstruction due to fecal retention. - NPO -NG tube placed for decompression - IV NS @ 75ml/ hr - IV ceftriaxone 1 gm daily and IV metronidazole 500 mg 8hrly. -Fleet enema given on 03/13/25 -surgical consult - recommended bleeding scan # GIOVANI on CKD likely prerenal/ VMN - continue IV fluids - monitor BMP - avoid nephrotoxic agents #left small pleural effusion -chest x-ray Mild chronic appearing left basilar pulmonary airspace disease and possible small pleural effusion. - monitor with repeat chest xray #history of perforated duodenal ulcer s/p exploratory laparotomy #hypokalemia - repleted GI prophylaxis: Protonix 40 mg b.i.d. IV DVT prophylaxis: Not given as patient has GI bleeding Diet: NPO Goals of care discussed with the patient for more than 27 minutes: Full code status Plan discussed with Dr Soto My Orders My Orders Orders - JOSE F BONILLA RESIDENT Procedure Category Date Status Time Phosphorus LAB 03/16/25 In Process 13:36 Dietary Evaluation Review Recommendations by RD: Increase Calorie Intake, PPN/TPN Comments: Pt meets criteria 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 based on severe wt loss 35lb/24% in 5 month, intake <50% estimated requirement x 5 days, severe muscle wasting and fat depletion Nutrition Recommendation: 1) PPN/TPN if NPO continues 2) Advance to soft diet as medically feasible 3) Ensure Enlive 240ml TID if pt resumes PO diet 4) Monitor NPO status, lab values, weight trend, and I/O Expected Outcomes/Goals: Intake to meet >75% estimated needs GI symptoms to improve Fu 2-3 days Food and Nutrition Intake (Sev: <50% est energy req 5days Interpretation of weight loss: >10% in 6 months Body Fat Depletion (Severe): Mod to Severe Depletion Muscle Mass (Severe): Mod to Severe Depletion Protein Calorie Malnutrition: Severe Is there a minimum of two crit: Yes CC Plasma Assessment Blood Product Administration S: [id number] JOSE F BONILLA RESIDENT Mar 16, 2025 17:30
--- NOTE | 2025-03-16 17:46 | DVH ---
CHEST RADIOGRAPH Indication: S/P INTUBATION AND CENTRAL LINE PLACEMENT Technique: Single frontal view of the chest was obtained Comparison: XY CHEST PORTABLE on DOS: 03/16/25, XY CHEST PORTABLE on DOS: 03/15/25, XY CHEST XRAY 1 V IEW on DOS: 03/13/25 FINDINGS: Lines and Tubes: Interval placement of an endotracheal tube terminating about 4.4 cm above the dunia . Interval placement of a right IJ approach central venous catheter terminating over the superior cav oatrial junction. Lungs: Blunting of the laca-hcuurtd-dhtz-right costophrenic angles. Right mid to lower lung zone line ar density No pneumothorax. Cardiomediastinal contours: Unremarkable Bones: No acute osseous abnormality. IMPRESSION: Endotracheal tube and right IJ approach central venous catheters are in satisfactory position. Trace sokv-[id number]-wldx-right pleural effusions with right retro lower lung zone linear atelectasis/ fluid within the fissure.
[2025-03-16 17:53] LABS: Base Excess -0.9 mmol/L (-2.0-3.0)
[2025-03-16] MEDS: ACCU-CHEK COMFORT CURVE STRIP VI SCH (18:19)
[2025-03-16] MEDS: InsuLIN REG 1unit/0.01ml Soln (100units/ml) SC SCH (18:23)
[2025-03-16] MEDS: D5W 5% 1,000 ML IV SCH (18:28)
[2025-03-16 19:39] LABS: Alkaline Phosphatase 398.0 U/L (46-116); Bilirubin, Total 0.8 mg/dL (0.2-1.0); Total Protein 6.2 g/dL (5.7-8.2); Triglycerides 137.0 mg/dL (< 150)
[2025-03-16 19:40] LABS: Alanine Aminotransferase 450.0 U/L (7-40); Magnesium 2.6 mg/dL (1.6-2.6)
[2025-03-16 19:41] LABS: Albumin 3.1 g/dL (3.2-4.8); Bilirubin, Direct 0.5 mg/dL (<0.3)
--- NOTE | 2025-03-16 20:32 | DVHINCON2 ---
Date of service: Mar 16, [address]Wuillemier Mckeon Reason for Consultation Possible acute stroke, rule out ALS History of Present Illness Mr. Perez is a 49 years old right-handed gentleman with a history of hypertension, dyslipidemia, multiple strokes, DVT, he was brought to the [facility] on 03/11/2025 with a chief complaint of diarrhea, history is obtained from his , the chart I saw him on 08/23/2023 for TIA, 10/27/2024 for encephalopathy 02/2025 the patient developed diarrhea, general weakness, on 03/11/2025, decided to bring him to medical attention. In the hospital, evidence of severe encephalitis, esophageal ulcer, duodenal bulb ulcer. On 03/16/25, the patient developed respiratory failure, and was intubated He was admitted to the [facility] on 10/04/2024 with a chief complaint of recurrent syncope, in the hospital, he was found to have perforated viscus, and he went through surgical treatment, it took a long time for him to recover, but since then, the patient always has intermittent confusion and reported he does not think rationally On 08/22/2023, after a fall at home, the patient noticed weakness in the left arm, leg, numbness in the left arm, leg and the face, he also had a very brief confusion, slurred speech, and the dizziness. His MRI 08/23/2023 showed evidence suggestive of multiple subacute/chronic strokes In his childhood, he had periodic frequent intense throbbing, pounding headache with heightened sensitivity to lights, noise, and the nausea, he sometimes saw lights, spots before the headache. But there was no family history of headache Stool occult blood, 03/13/2025: Positive UDS, 03/12/2025: Negative Plasma alcohol, 03/12/2025: <3 Urinalysis, 03/12/2025: WBC: One, urine leukocyte esterase: Negative ABG, 03/16/25: Hypoxia, respiratory acidosis WBC/Hb/PLT'/MCV, 03/16/25: 10.l 6/7.9/339/82.4 Na, 03/11/2025: 129, 03/12/2025: 130, 129, 03/15/25: 145, 03/16/25: 142 BUNs/CR, 08/22/2023: 15/1.45, 03/11/2025: 55/1.77, 03/13/2025: 43/1.58, 02/2725: 65/2.56 GFR, 08/22/2023: 59 TBI/AST/ALT/AP: 0.8/269/450/398 TG/CHO L/LDL/HDL, 08/2023: 136/166/111/39 Vitamin B12, 03/12/25: 852 Folic acid, 03/12/2025: 12.28 TSH, 08/23/2023: 4.25 Extremity venous study, right arm, 11/09/2024: Thrombus is seen in the cephalic vein in the forearm. DONAL, 08/23/2023: 1. No evidence of intracardiac source of embolus in the study conducted today. 2. Normal valves without significant masses or change vegetations were discernible. 3. No evidence of intra-atrial shunting by bubble study and color Doppler. 4. Mild atherosclerotic plaquing was visualized in the arch of the aorta without evidence of dissection in the visualized part Chest x-ray, 03/12/2025: Mild chronic appearing left basilar pulmonary airspace disease and possible small pleural effusion Chest x-ray, 03/13/2025: 1. Enteric tube terminates in the stomach. 2. Worsening bilateral interstitial and alveolar opacities. Chest x-ray, : Endotracheal tube and right IJ approach central venous catheters are in satisfactory position. Trace ixqy-nkcffat-uunu-right pleural effusions with right retro lower lung zone linear atelectasis/ fluid within the fissure. CT head, 10/24/2024: 1. No intracranial hemorrhage or mass effect. 2. Vfdd-nj-nwcdhked chronic microvascular ischemic changes. 3. Old bilateral basal ganglia lacunar infarcts. 4. Small bilateral mastoid effusions. CT abdomen/pelvis, 10/04/2024: 1. Extensive intra-abdominal free air concerning for perforated viscus. Surgical consultation is recommended. 2. Enteritis is seen in multiple loops of small bowel in the left hemiabdomen. 3. Moderate abdominopelvic ascites. 4. Small right pleural effusion. CTA neck, head, 08/22/2023:1. CTA head demonstrates no evidence of large vessel occlusion, aneurysm, or significant stenosis. 2. CTA neck demonstrates no evidence of carotid or vertebral dissection or significant stenosis. 3. No noncontrast CT head was performed. 4. Additional findings as detailed above MRI head, 08/23/2023: No acute infarct, intracranial hemorrhage, mass effect, or hydrocephalus. Moderate periventricular and deep subcortical white matter T2 hyperintensities which are nonspecific, but most likely related to sequela of chronic microvascular ischemic changes (I have reviewed the MRI films with our in-house radiologist, Dr. Black, the patient had bilateral multiple subacute/chronic infarcts) MRI head, 11/01/2024: No acute cerebrovascular ischemia. Ahis-jg-mnzkiujf chronic microvascular ischemic changes. Bilateral mastoid effusions. Old bilateral basal ganglia / lopes radiata infarcts. Past Medical History hypertension, dyslipidemia, multiple strokes, DVT, peptic ulcer/GI bleeding Past Surgical History Left knee fracture repair, perforated viscus repair, tracheostomy Family History: Alcoholism G8 MOTHER Cardiovascular disease G8 MOTHER G8 FATHER FH: heart disease FH: lung cancer Hypertension G8 MOTHER Family History Hypertension, diabetes, his father of heart attack in the age of 40s, alcoholism, cancer. 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 12/08/24 Labetalol HCl (Labetalol HCl) 200 Mg Tab, 200 MG PO BID for 30 Days, #60 TAB Prov:CHEYENNE PIKE SENIOR SOFTWARE ENGINEERING MANAGER 12/08/24 Nifedipine (Nifedipine Er) 60 Mg Tab, 2 TAB PO DAILY, #30 TAB 5 Refills Prov:CHEYENNE PIKE SENIOR SOFTWARE ENGINEERING MANAGER 12/08/24 Pantoprazole Sodium Sesquihydr (Protonix) 40 Mg Tab, 40 MG PO BID for 30 Days, #60 TAB Prov:CHEYENNE PIKE SENIOR SOFTWARE ENGINEERING MANAGER 12/08/24 Sucralfate (CARAFATE) 1 Gm Tab, 1 GM OR ACHS for 30 Days, #120 TAB Prov:CHEYENNE PIKE SENIOR SOFTWARE ENGINEERING MANAGER 12/08/24 Reported Medications Escitalopram Oxalate (ESCITALOPRAM OXALATE) 10 Mg Tab, 1 TAB PO DAILY for 30 Days, #30 10/06/24 Current Medications Current Medications Medications (Trade) Dose Ordered Sig/Wally Route PRN Reason Start Time Stop Time Status Last Admin Enteral Nutritional Formula (Ensure High Protein) 240 ml TIDWM PO 03/16/25 12:00 03/16/25 17:11 DC Dextrose 1,000 ml @ 100 mls/hr Q10H IV 03/16/25 12:15 03/16/25 18:28 Midazolam HCl 100 ml @ 1 mls/hr Q24H IV 03/16/25 16:30 03/16/25 16:39 Fentanyl Citrate 250 ml @ 2.5 mls/hr Q24H IV 03/16/25 16:30 03/16/25 16:42 Midazolam HCl 100 ml @ 1 mls/hr Q24H IV 03/16/25 16:30 03/16/25 16:37 DC Fentanyl Citrate 250 ml @ 2.5 mls/hr Q24H IV 03/16/25 16:30 03/16/25 16:37 DC Amino Acids 0 ml @ 0 mls/hr PER PHARMACY IV 03/16/25 17:00 03/16/25 17:44 DC Diagnostic Test (Pha) (Accu-Chek Comfort Curve T) 1 strip Q6HR 03/16/25 18:00 03/16/25 18:19 Insulin Human Regular (InsuLIN R) FOLLOW SLIDING SCALE Q6HR SC 03/16/25 18:00 03/16/25 18:23 Dextrose 50 ml UD IV 03/16/25 17:15 Amino Acids 0 ml @ 0 mls/hr PER PHARMACY IV 03/16/25 17:15 Pantoprazole Sodium 50 ml @ 10 mls/hr Q5H IV 03/16/25 17:15 Review of Systems As above, the other systems are negative Vital Signs Vital Signs Date Time Temp Pulse Resp B/P (MAP) Pulse Ox O2 Delivery O2 Flow Rate FiO2 03/16/25 19:54 66 24 132/88 (103) 100 30 03/16/25 18:06 Mechanical Ventilator 03/16/25 15:01 97.7 97.7 03/16/25 08:18 2 Physical Exam The patient is well-nourished and well-developed with no distress. The patient is intubated HEENT: Normocephalic, neck supple, no carotid bruits Lungs: Clear to auscultation Cardiovascular: Regular rate and region, S1, S2, no murmurs Abdomen: Soft, nontender, normal bowel sounds MENTAL STATUS: He is responsive to stroke painful stimuli CRANIAL NERVES: Pupils are equal, round and reactive.There are corneal reflexes and doll's eyes phenomenon. No signs of facial weakness. There are gagging or coughing reflexes SENSATION: responses to pain stimuli. MOTOR: Normal tone in the upper and lower extremity. Normal muscle bulk. No fasciculations. No spontaneous movement. REFLEXES: Deep tendon reflexes are symmetrical. No pathological reflexes. CEREBELLAR/COORDINATION: Deferred GAIT/STATION: deferred. Labs/Diagnostic Data Labs Test 03/16/25 18:20 03/16/25 17:45 03/16/25 17:16 03/16/25 14:00 Range/Units POC Glucose 132 H 70-106 mg/dl Blood Gas Specimen Type Arterial Blood Gas Sample Site Left radial Blood Gas Patient Temperature 37.0 Arterial Blood Date Drawn [id number] Arterial Blood pH 7.389 7.350-7.450 Arterial Blood Partial Pressure CO2 40.6 35.0-48.0 mmHg Arterial Blood Partial Pressure O2 223.8 H 83.0-108.0 mmHg Arterial Blood HCO3 24.0 21.0-28.0 mmol/L Arterial Blood Oxygen Saturation 99.3 H 94.0-98.0 % Arterial Blood Base Excess -0.9 -2.0-3.0 mmol/L Arterial Blood Oxyhemoglobin 98.5 H 94.0-98.0 % Arterial Blood Carboxyhemoglobin 0.4 L 0.5-1.5 % Arterial Blood Methemoglobin 0.4 0.0-1.5 % Ke Test Modified Blood Gas Total Hemoglobin 7.90 L 13.5-17.5 g/dL Blood Gas Set Respiration Rate 24.0 Blood Gas Modality Vent - ac Blood Gas Spontaneous Rate 24 FiO2 % 60.0 Blood Gas Tidal Volume 500.0 Blood Gas PEEP or CPAP 5.0 Specimen Drawn By jo ann mccoy Phosphorus Level 4.1 2.4-5.1 mg/dL Magnesium Level 2.6 1.6-2.6 mg/dL Total Bilirubin 0.8 0.2-1.0 mg/dL Direct Bilirubin 0.5 H <0.3 mg/dL Aspartate Amino Transferase (AST) 269 H 13-40 U/L Alanine Aminotransferase (ALT) 450 H 7-40 U/L Alkaline Phosphatase 398 H 46-116 U/L Total Protein 6.2 5.7-8.2 g/dL Albumin 3.1 L 3.2-4.8 g/dL Triglycerides Level 137 < 150 mg/dL Vitamin D 25-Hydroxy 35.5 30.0-100 ng/mL Blood Gas Liter Flow 4.00 Blood Gas Critical Value Read Back Yes Blood Gas Notified Whom Iraida gunn. Blood Gas Notified Time [id number] Blood Gas Notified By Bria federal judge Test 03/16/25 13:59 03/16/25 04:54 03/13/25 11:53 03/13/25 04:58 Range/Units Hemoglobin 8.4 L 13.5-17.5 g/dL Hematocrit 26.5 L 41.0-53.0 % B-Type Natriuretic Peptide > 5000.00 0-100 pg/mL Parathyroid Hormone (Intact) 190.7 H 18.4-80.1 pg/mL White Blood Count 10.6 4.4-10.8 10^3/uL Red Blood Count 2.96 L 4.5-5.90 10^6/uL Mean Corpuscular Volume 82.4 80.0-100.0 fL Mean Corpuscular Hemoglobin 26.8 L 28.0-32.0 pg Mean Corpuscular Hemoglobin Concent 32.5 32.0-36.0 g/dL Red Cell Distribution Width 21.7 H 11.8-14.3 % Platelet Count 339 140-450 10^3/uL Mean Platelet Volume 6.6 L 6.9-10.8 fL Neutrophils (%) (Auto) 85.0 H 37.0-80.0 % Lymphocytes (%) (Auto) 5.9 L 10.0-50.0 % Monocytes (%) (Auto) 9.0 0.0-12.0 % Eosinophils (%) (Auto) 0.0 0.0-7.0 % Basophils (%) (Auto) 0.1 0.0-2.0 % Neutrophils # (Auto) 9.0 H 1.6-8.6 10 ^3/uL Lymphocytes # (Auto) 0.6 0.4-5.4 10 ^3/uL Monocytes # (Auto) 1.0 0-1.3 10 ^3/uL Eosinophils # (Auto) 0 0-0.8 10 ^3/uL Basophils # (Auto) 0 0-0.2 10 ^3/uL Nucleated Red Blood Cells 1.4 % Sodium Level 152 #H 136-145 mmol/L Potassium Level 3.3 L 3.5-5.1 mmol/L Chloride Level 110 H 98-107 mmol/L Carbon Dioxide Level 28 # 20-31 mmol/L Anion Gap 14 5-15 Blood Urea Nitrogen 65 #H 9-23 mg/dL Creatinine 2.56 H 0.700-1.30 mg/dL Glomerular Filtration Rate Calc 30 >90 mL/min BUN/Creatinine Ratio 25.4 H 10.0-20.0 Serum Glucose 151 H 74-106 mg/dL Calcium Level 7.9 L 8.7-10.4 mg/dL Stool Occult Blood Positive Negative Stool Occult Blood Sample #3 Negative Thyroid Stimulating Hormone (TSH) 3.84 0.55-4.78 uIU/mL Test 03/13/25 03:46 03/12/25 10:20 03/12/25 05:00 03/12/25 04:28 Range/Units Ammonia 18 11-32 umol/L Urine Creatinine 10.46 L 30.0-125.0 mg/dL Urine Protein/Creatinine Ratio 2.26 Urine Sodium 83 40-220 mmol/L Urine Total Protein 23.6 H 1-14 mg/dL Urine Color Light-yellow Yellow Urine Clarity Clear Clear Urine pH 5.5 5.0-9.0 Urine Specific Barre 1.013 1.001-1.035 Urine Protein Trace H Negative Urine Ketones Trace Negative Urine Blood Negative Negative /uL Urine Nitrite Negative Negative Urine Bilirubin Negative Negative Urine Urobilinogen Normal Negative mg/dL Urine Leukocyte Esterase Negative Negative /uL Urine RBC <1 0 - 3 /hpf Urine Microscopic WBC < 1 0-3 /HPF Urine Squamous Epithelial Cells None seen <5 /hpf Urine Bacteria None seen None Seen /hpf Urine Glucose Normal Normal mg/dL Urine Opiates Screen Neg NEGATIVE Urine Fentanyl Screen Neg NEGATIVE Urine Barbiturates Screen Neg NEGATIVE Urine Phencyclidine Screen Neg NEGATIVE Urine Amphetamines Screen Neg NEGATIVE Urine Benzodiazepines Screen Neg NEGATIVE Urine Cocaine Screen Neg NEGATIVE Urine Cannabinoids Screen Neg NEGATIVE Prothrombin Time 10.2 9.3-11.8 sec Prothrombin Time INR 0.96 0.9-1.15 Activated Partial Thromboplast Time 24.8 24.5-34.5 SEC Iron Level 39 L 65-175 ug/dL Total Iron Binding Capacity 321 250-425 ug/dL Percent Iron Saturation 12.1 L 20-55 % Ferritin 21.1 L 22-322 ng/mL Vitamin B12 Level 852 211-911 pg/mL Folic Acid 12.28 >5.38 ng/mL Plasma/Serum Blood Alcohol < 3.0 <10 mg/dL Test 03/11/25 23:05 03/11/25 17:15 Range/Units Reticulocyte Count (auto) 3.05 H 0.5-1.5 % Lactate Dehydrogenase 245 120-246 U/L Lactic Acid Level 1.9 0.4-2.0 mmol/L Microbiology Date/Time Source Procedure Growth Status 03/13/25 11:53 Stool Stool Culture - Final Complete 03/13/25 11:53 Stool Shiga Toxin I & II - Final Complete 03/12/25 11:55 Urine - [place] Urine Culture - Final Complete 03/11/25 15:36 Blood Blood Culture - Final NO GROWTH AFTER 5 DAYS OF INCUBATION. Complete Assessment Altered mental status/Coma Metabolic encephalopathy secondary to sepsis, septic shock, hypernatremia Hypoxic encephalopathy Peptic ulcer, GI bleeding, anemia Respiratory failure Multiple strokes Secondary to history methamphetamine, cocaine, alcohol use History of alcohol abuse History of cocaine, methamphetamine abuse Plan/Recommendation Monitoring Supportive treatment ICU care Stabilize vitals Respiratory support/vent management Follow-up labs EEG IV antibiotics Aspirin 81 mg daily later More recommended per clinical course Prognosis: Guarded Critical care time spent is 45 minutes This medical document was created using an electronic medical record system with [employer] dictation system. Although this document has been carefully reviewed, there may still be some phonetic and typographical errors. These areas are purely typographical due to imperfections of the software programs, and do not reflect any compromise in the patient's medical care. Plan discussed with: Spouse, Other LEANDRO BLACK MD Mar 16, 2025 20:32
[2025-03-16] MEDS: AMINO ACID INFUSION IN D10W 1,000 ML IV ONE (22:21)
[2025-03-16 22:26] LABS: Hematocrit 22.6 % (41.0-53.0); Hemoglobin 7.4 g/dL (13.5-17.5)
[2025-03-17] VITALS (105 sets, daily range): BP systolic 92–174; BP diastolic 41–84; PULSE 46–74; RESP 19–25; TEMP 97.1–99; O2SAT 99–100
--- NOTE | 2025-03-17 01:21 | DVH ---
EXAM: CT HEAD WITHOUT CONTRAST INDICATION: rule out acute cva TECHNIQUE: CT of the head without intravenous contrast. Radiation Dose : 1. Head: CT Dose: CTDI volume is 50.46 mGy. Dose-length product is 910.02 mGy*cm The dose indicators for CT are the volume Computed Tomography (CT) Dose Index (CTDIvol) and the Dose Length Product (DLP), and are measured in units of mGy and mGy-cm, respectively. These indicators are not patient dose, but values generated from the CT scanner acquisition factors. The report includes radiation exposure data for exposures received during this examination. COMPARISON: MRI BRAIN HEAD WO CONTRAST on DOS: 11/01/24, CT HEAD WITHOUT CONTRAST on DOS: 10/24/24, CT H EAD WITHOUT CONTRAST on DOS: 10/04/24, MRI BRAIN HEAD WO CONTRAST on DOS: 08/23/23, CT ANGIO HEAD/NECK o n DOS: 08/22/23 FINDINGS: New medial right parieto-occipital focal region of diminished parenchymal attenuation consistent with acute to subacute infarct within the posterior cerebral artery distribution. Chronic appearing lacunar infarcts within the bilateral basal ganglia, left external capsule, centrum semiovale and lopes radiata as well as within the bilateral cerebellar hemispheres. There is no evidence of acute intracranial hemorrhage, extra-axial collection, mass effect, midline s hift, herniation or hydrocephalus. Increased prominence of the ventricles, sulci and cisterns consistent with sequelae of atrophic corti rick volume loss. The rojas-white differentiation is intact. Moderate diffuse confluent periventricular and subcortical white matter hypoattenuation is nonspecifi c but may be related to small vessel ischemic disease. The visualized paranasal sinuses and mastoid air cells are clear. The surrounding soft tissues and osseous structures are unremarkable. IMPRESSION: 1. New medial right parieto-occipital focal region of diminished parenchymal attenuation within the m edial right parietal occipital lobes. This is concerning for an acute to subacute infarct. Recommen d further evaluation with MRI. 2. No evidence of acute intracranial hemorrhage, mass effect or hydrocephalus. 3. Chronic sequelae of microangiopathy and atrophic cortical volume loss. 4. Multifocal chronic lacunar infarcts as outlined above. Radiation optimization: All CT scans at this facility use at least one of these dose optimization halie hniques: automated exposure control mA and/or kV adjustment per patient size (includes targeted exam s where dose is matched to clinical indication) or iterative reconstruction.
--- NOTE | 2025-03-17 03:01 | DVH ---
CHEST RADIOGRAPH Indication: INTUBTED Technique: 1 view Comparison: XY CHEST PORTABLE on DOS: 03/16/25, XY CHEST PORTABLE on DOS: 03/16/25, XY CHEST PORTABLE on DOS: 03/15/25, XY CHEST XRAY 1 VIEW on DOS: 03/13/25, XY CHEST XRAY 1 VIEW on DOS: 03/13/25 FINDINGS: Lines and Tubes: Unchanged. Lungs/Pleura: Unchanged. Cardiomediastinum: Unchanged. Other: Unchanged osseous structures. IMPRESSION: No significant change from the previous day. Stable support devices. Bilateral interstitial opacitie s, small left basilar consolidation and pleural effusion.
[2025-03-17 04:31] LABS: Hematocrit 22.2 % (41.0-53.0); Hemoglobin 7.2 g/dL (13.5-17.5); Mean Corpuscular Hemoglobin 27.1 pg (28.0-32.0); Mean Corpuscular Volume 83.8 fL (80.0-100.0); Nucleated Red Blood Cells % 1.0 %
[2025-03-17 04:38] LABS: Anion Gap 12 (5-15); BUN/Creatinine Ratio 31.9 (10.0-20.0); Carbon Dioxide 28 mmol/L (20-31); Magnesium 2.4 mg/dL (1.6-2.6)
[2025-03-17 04:39] LABS: Bilirubin, Total 0.7 mg/dL (0.2-1.0)
[2025-03-17 04:40] LABS: Alanine Aminotransferase 370 U/L (7-40); Albumin 2.7 g/dL (3.2-4.8); Alkaline Phosphatase 326 U/L (46-116); Blood Urea Nitrogen 66 mg/dL (9-23); Calcium 7.4 mg/dL (8.7-10.4); Chloride 112 mmol/L (98-107); Glucose 170 mg/dL (74-106); Sodium 152 mmol/L (136-145); Total Protein 5.5 g/dL (5.7-8.2)
[2025-03-17 04:43] LABS: Potassium 2.5 mmol/L (3.5-5.1)
[2025-03-17] MEDS: POTASSIUM CHL 20MEQ/100ML 100 ML IV SCH (05:14)
--- NOTE | 2025-03-17 05:50 | DVH ---
Exam: XY KUB ABDOMEN SINGLE VIEW Indication: R/O free air/obstruction Comparison: Same day chest radiograph, small-bowel series 03/14/2025 Technique: 2 views Findings: Nonobstructive bowel gas pattern. Dense enteric contrast throughout a majority of large bowel loops, [id number]-bd-[id number] burden in the rectum. Patient positioning is not labeled; no obvious free air. The lower chest is better assessed on same day comparison chest radiograph. No acute osseous finding. Impression: 1. Nonobstructive bowel gas pattern. 2. No obvious free air although patient positioning is indeterminate, and probably supine which signi ficantly decreases sensitivity.
[2025-03-17 07:49] LABS: Base Excess 3.1 mmol/L (-2.0-3.0)
--- NOTE | 2025-03-17 08:41 | DVHPN2 ---
Progress Note - Dictate Date Seen: Mar 17, 2025 Medical Necessity Reason Pt with a Central, PICC or Fol: No Subjective Mr. Perez is a 49 years old right-handed gentleman with a history of hypertension, dyslipidemia, multiple strokes, DVT, he was brought to the [facility] on 03/11/2025 with a chief complaint of diarrhea, history is obtained from his , the chart review I saw him on 08/23/2023 for TIA, 10/27/2024 for encephalopathy On 02/2025 the patient developed diarrhea, general weakness, on 03/11/2025, decided to bring him to medical attention. In the hospital, EGD showed evidence of erosive esophagitis, esophageal ulcer, duodenal bulb ulcer. On 03/16/25, the patient developed respiratory failure, and was intubated He was admitted to the [facility] on 10/04/2024 with a chief complaint of recurrent syncope, in the hospital, he was found to have perforated viscus, and he went through surgical treatment, it took a long time for him to recover, but since then, the patient always has intermittent confusion and reported he does not think rationally On 08/22/2023, after a fall at home, the patient noticed weakness in the left arm, leg, numbness in the left arm, leg and the face, he also had a very brief confusion, slurred speech, and the dizziness. His MRI 08/23/2023 showed evidence suggestive of multiple subacute/chronic strokes In his childhood, he had periodic frequent intense throbbing, pounding headache with heightened sensitivity to lights, noise, and the nausea, he sometimes saw lights, spots before the headache. But there was no family history of headache I have seen and examined the patient, I have talked to his nurse, he is intubated, responsive to stroke painful stimuli. Pupil are pinpoint, nonreactive. CT brain on 03/17/2025 showed new stroke Versed 3 mg/hour, fentanyl 75 mcg/hour Stool occult blood, 03/13/2025: Positive UDS, 03/12/2025: Negative Plasma alcohol, 03/12/2025: <3 Urinalysis, 03/12/2025: WBC: One, urine leukocyte esterase: Negative ABG, 03/16/25: Hypoxia, respiratory acidosis WBC/Hb/PLT'/MCV, 03/16/25: 10.l 6/7.9/339/82.4 Na, 03/11/2025: 129, 03/12/2025: 130, 129, 03/15/25: 145, 03/16/25: 142 BUNs/CR, 08/22/2023: 15/1.45, 03/11/2025: 55/1.77, 03/13/2025: 43/1.58, 02/2725: 65/2.56 GFR, 08/22/2023: 59 TBI/AST/ALT/AP,: 0.8/269/450/398 TG/CHO L/LDL/HDL, 08/2023: 136/166/111/39 Vitamin B12, 03/12/25: 852 Folic acid, 03/12/2025: 12.28 TSH, 08/23/2023: 4.25 Extremity venous study, right arm, 11/09/2024: Thrombus is seen in the cephalic vein in the forearm. DONAL, 08/23/2023: 1. No evidence of intracardiac source of embolus in the study conducted today. 2. Normal valves without significant masses or change vegetations were discernible. 3. No evidence of intra-atrial shunting by bubble study and color Doppler. 4. Mild atherosclerotic plaquing was visualized in the arch of the aorta without evidence of dissection in the visualized part EGD, 03/13/2025: 1. 1-2 cm sliding-type hiatal hernia with severe grade C linear erosive esophagitis with esophageal ulcers extending into the distal 15 cm of the esophagus 2. Patient had a persistent duodenal bulb ulcer seen just inside the pyloric opening which was large coalescing with a visible sutures; there was no active bleeding or visible vessel but there was acute on chronic inflammation 3. Patient had deformity of the postbulbar duodenal area and I was able to see the 2nd part of the duodenum but there was area of debris and ongoing chronic ulceration inflammation and the endoscope was not advanced beyond this area 3. Patient had mild gastritis and some old coffee-ground within the stomach Chest x-ray, 03/12/2025: Mild chronic appearing left basilar pulmonary airspace disease and possible small pleural effusion Chest x-ray, 03/13/2025: 1. Enteric tube terminates in the stomach. 2. Worsening bilateral interstitial and alveolar opacities. Chest x-ray, : Endotracheal tube and right IJ approach central venous catheters are in satisfactory position. Trace ppwt-[id number]-tpnr-right pleural effusions with right retro lower lung zone linear atelectasis/ fluid within the fissure. CT head, 10/24/2024: 1. No intracranial hemorrhage or mass effect. 2. Makt-hr-[id number] chronic microvascular ischemic changes. 3. Old bilateral basal ganglia lacunar infarcts. 4. Small bilateral mastoid effusions. CT head, 03/17/2025: 1. New medial right parieto-occipital focal region of diminished parenchymal attenuation within the medial right parietal occipital lobes. This is concerning for an acute to subacute infarct. Recommend further evaluation with MRI. 2. No evidence of acute intracranial hemorrhage, mass effect or hydrocephalus. 3. Chronic sequelae of microangiopathy and atrophic cortical volume loss.4. Multifocal chronic lacunar infarcts as outlined above. CT abdomen/pelvis, 10/04/2024: 1. Extensive intra-abdominal free air concerning for perforated viscus. Surgical consultation is recommended. 2. Enteritis is seen in multiple loops of small bowel in the left hemiabdomen. 3. Moderate abdominopelvic ascites. 4. Small right pleural effusion. CTA neck, head, 08/22/2023:1. CTA head demonstrates no evidence of large vessel occlusion, aneurysm, or significant stenosis. 2. CTA neck demonstrates no evidence of carotid or vertebral dissection or significant stenosis. 3. No noncontrast CT head was performed. 4. Additional findings as detailed above MRI head, 08/23/2023: No acute infarct, intracranial hemorrhage, mass effect, or hydrocephalus. Moderate periventricular and deep subcortical white matter T2 hyperintensities which are nonspecific, but most likely related to sequela of chronic microvascular ischemic changes (I have reviewed the MRI films with our in-house radiologist, Dr. Sosa, the patient had bilateral multiple subacute/chronic infarcts) MRI head, 11/01/2024: No acute cerebrovascular ischemia. Wkts-ke-[id number] chronic microvascular ischemic changes. Bilateral mastoid effusions. Old bilateral basal ganglia / lopes radiata infarcts. vital signs Vital Sign Date Time Temp Pulse Resp B/P (MAP) Pulse Ox O2 Delivery O2 Flow Rate FiO2 03/17/25 07:30 58 24 98/65 (76) 100 30 03/17/25 06:00 Mechanical Ventilator+ 03/17/25 04:00 98.2 98.2 03/16/25 08:18 2 Total Intake and Output 03/16/25 03/16/25 03/17/25 15:00 23:00 07:00 Intake Total 200 ml 693.5 ml 646.0 ml Output Total 325 ml 850 ml Balance 200 ml 368.5 ml -204.0 ml medications Current Medications Medications Dose Ordered Sig/Wally Route Start Time Stop Time Status Last Admin Dose Admin Ondansetron HCl 4 mg Q4HP PRN IV 03/12/25 00:00 Hydralazine HCl 10 mg Q6HP PRN IV 03/12/25 17:30 03/12/25 18:51 10 MG Lorazepam 1 mg Q8HP PRN IV 03/12/25 21:45 03/12/25 21:58 1 MG Ceftriaxone Sodium 50 ml @ 100 mls/hr DAILY@09 IV 03/13/25 09:00 03/16/25 08:43 100 MLS/HR Metronidazole 100 ml @ 100 mls/hr Q8HR IV 03/13/25 14:00 03/17/25 05:53 100 MLS/HR Dextrose 1,000 ml @ 100 mls/hr Q10H IV 03/16/25 12:15 03/16/25 22:18 100 MLS/HR Midazolam HCl 100 ml @ 1 mls/hr Q24H IV 03/16/25 16:30 03/16/25 16:39 1 MLS/HR Fentanyl Citrate 250 ml @ 2.5 mls/hr Q24H IV 03/16/25 16:30 03/16/25 16:42 2.5 MLS/HR Diagnostic Test (Pha) 1 strip Q6HR 03/16/25 18:00 03/17/25 05:55 1 STRIP Insulin Human Regular FOLLOW SLIDING SCALE Q6HR SC 03/16/25 18:00 03/17/25 05:55 4 UNITS Dextrose 50 ml UD IV 03/16/25 17:15 Amino Acids 0 ml @ 0 mls/hr PER PHARMACY IV 03/16/25 17:15 Pantoprazole Sodium 50 ml @ 10 mls/hr Q5H IV 03/16/25 17:15 03/17/25 07:16 10 MLS/HR Potassium Chloride 100 ml @ 50 mls/hr Q2H IV 03/17/25 05:00 03/17/25 08:59 03/17/25 07:14 50 MLS/HR objective The patient is well-nourished and well-developed with no distress. The patient is intubated MENTAL STATUS: He is responsive to stroke painful stimuli CRANIAL NERVES: Pupils are equal, round and nonreactive, pinpoint. There are corneal reflexes and doll's eyes phenomenon. No signs of facial weakness. There are gagging or coughing reflexes SENSATION: responses to pain stimuli. MOTOR: Normal tone in the upper and lower extremity. Normal muscle bulk. No fasciculations. No spontaneous movement. REFLEXES: Deep tendon reflexes are symmetrical. No pathological reflexes. CEREBELLAR/COORDINATION: Deferred GAIT/STATION: deferred. laboratory and microbiology Laboratory Tests 03/17/25 03:45 Test 03/17/25 03:45 Range/Units Serum Glucose 170 H 74-106 mg/dL Problem List Altered mental status/Coma Metabolic encephalopathy secondary to sepsis, septic shock, hypernatremia Hypoxic encephalopathy Peptic ulcer, GI bleeding, anemia Respiratory failure New stroke (CT 03/17/25) Multiple chronic strokes Maybe secondary to history methamphetamine, cocaine, alcohol use History of alcohol abuse History of cocaine, methamphetamine abuse Assessment/Plan Monitoring Supportive treatment ICU care Stabilize vitals Respiratory support/vent management Follow-up labs EEG IV antibiotics Aspirin 81 mg daily later Lipitor 20 mg daily More recommended per clinical course This medical document was created using an electronic medical record system with [employer] dictation system. Although this document has been carefully reviewed, there may still be some phonetic and typographical errors. These areas are purely typographical due to imperfect Prognosis Guarded Dietary Evaluation Review Recommendations by RD: Increase Calorie Intake, PPN/TPN Comments: Pt meets criteria 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 based on severe wt loss 35lb/24% in 5 month, intake <50% estimated requirement x 5 days, severe muscle wasting and fat depletion Nutrition Recommendation: 1) PPN/TPN if NPO continues 2) Advance to soft diet as medically feasible 3) Ensure Enlive 240ml TID if pt resumes PO diet 4) Monitor NPO status, lab values, weight trend, and I/O Expected Outcomes/Goals: Intake to meet >75% estimated needs GI symptoms to improve Fu 2-3 days Food and Nutrition Intake (Sev: <50% est energy req 5days Interpretation of weight loss: >10% in 6 months Body Fat Depletion (Severe): Mod to Severe Depletion Muscle Mass (Severe): Mod to Severe Depletion Protein Calorie Malnutrition: Severe Is there a minimum of two crit: Yes Plan discussed with: Other Critical Care Time(min): 35 CC Plasma Assessment Blood Product Administration S: [id number] LEANDRO SOSA MD Mar 17, 2025 08:41
[2025-03-17] MEDS ORDERED: POTASSIUM CHL 20MEQ/100ML 100 ML IV SCH (09:00)
--- NOTE | 2025-03-17 09:18 | DVHPN2 ---
Progress Note - Dictate Date Seen: Mar 17, 2025 Medical Necessity Reason Pt with a Central, PICC or Fol: No Subjective E: intubated and transferred to ICU d/t SOB/failed BIPAP vital signs Vital Sign Date Time Temp Pulse Resp B/P (MAP) Pulse Ox O2 Delivery O2 Flow Rate FiO2 03/17/25 07:30 58 24 98/65 (76) 100 30 03/17/25 06:00 Mechanical Ventilator+ 03/17/25 04:00 98.2 98.2 03/16/25 08:18 2 Total Intake and Output 03/16/25 03/16/25 03/17/25 14:59 22:59 06:59 Intake Total 200 ml 432.0 ml 907.5 ml Output Total 325 ml 850 ml Balance 200 ml 107.0 ml 57.5 ml medications Current Medications Medications Dose Ordered Sig/Wally Route Start Time Stop Time Status Last Admin Dose Admin Ondansetron HCl 4 mg Q4HP PRN IV 03/12/25 00:00 Hydralazine HCl 10 mg Q6HP PRN IV 03/12/25 17:30 03/12/25 18:51 10 MG Lorazepam 1 mg Q8HP PRN IV 03/12/25 21:45 03/12/25 21:58 1 MG Ceftriaxone Sodium 50 ml @ 100 mls/hr DAILY@09 IV 03/13/25 09:00 03/16/25 08:43 100 MLS/HR Metronidazole 100 ml @ 100 mls/hr Q8HR IV 03/13/25 14:00 03/17/25 05:53 100 MLS/HR Dextrose 1,000 ml @ 100 mls/hr Q10H IV 03/16/25 12:15 03/16/25 22:18 100 MLS/HR Midazolam HCl 100 ml @ 1 mls/hr Q24H IV 03/16/25 16:30 03/16/25 16:39 1 MLS/HR Fentanyl Citrate 250 ml @ 2.5 mls/hr Q24H IV 03/16/25 16:30 03/16/25 16:42 2.5 MLS/HR Diagnostic Test (Pha) 1 strip Q6HR 03/16/25 18:00 03/17/25 05:55 1 STRIP Insulin Human Regular FOLLOW SLIDING SCALE Q6HR SC 03/16/25 18:00 03/17/25 05:55 4 UNITS Dextrose 50 ml UD IV 03/16/25 17:15 Amino Acids 0 ml @ 0 mls/hr PER PHARMACY IV 03/16/25 17:15 Pantoprazole Sodium 50 ml @ 10 mls/hr Q5H IV 03/16/25 17:15 03/17/25 07:16 10 MLS/HR Potassium Acetate 20 meq/Potassium Phosphate 44 meq/ Calcium Gluconate 4.6 meq/ Multivitamins 10 ml/Chromium/ Copper/Manganese/ Zinc 1 ml/Amino Acids/Dextrose 940.8924 ml @ 40 mls/hr [id number] IV 03/17/25 22:00 03/18/25 21:59 Potassium Chloride 100 ml @ 50 mls/hr Q2H IV 03/17/25 09:00 03/17/25 12:59 Folic Acid 1 mg/ Dextrose 50.2 ml @ 200.8 mls/ hr DAILY INJ 03/17/25 10:00 Thiamine HCl 100 mg DAILY IV 03/18/25 10:00 objective GEN: intubated. ABD: soft. NGT dark bloody output. also large amt of tarry stool last night per RN laboratory and microbiology Laboratory Tests 03/17/25 03:45 Test 03/17/25 03:45 Range/Units Serum Glucose 170 H 74-106 mg/dL Assessment/Plan A: 1. Duodenal ulcers with possible upper GI bleeding P: 1. f/u on bleeding scan. if positive for active bleeding, may request repeat EGD vs embolization from IR. 2. will signout to Dr. Velasco. Dietary Evaluation Review Recommendations by RD: Increase Calorie Intake, PPN/TPN Comments: Pt meets criteria 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 based on severe wt loss 35lb/24% in 5 month, intake <50% estimated requirement x 5 days, severe muscle wasting and fat depletion Nutrition Recommendation: 1) PPN/TPN if NPO continues 2) Advance to soft diet as medically feasible 3) Ensure Enlive 240ml TID if pt resumes PO diet 4) Monitor NPO status, lab values, weight trend, and I/O Expected Outcomes/Goals: Intake to meet >75% estimated needs GI symptoms to improve Fu 2-3 days Food and Nutrition Intake (Sev: <50% est energy req 5days Interpretation of weight loss: >10% in 6 months Body Fat Depletion (Severe): Mod to Severe Depletion Muscle Mass (Severe): Mod to Severe Depletion Protein Calorie Malnutrition: Severe Is there a minimum of two crit: Yes Plan discussed with: Patient, Other CC Plasma Assessment Blood Product Administration S: [id number] SAMMIE LEONARDO MD Mar 17, 2025 09:18
[2025-03-17] MEDS: POTASSIUM CHL 20MEQ/100ML 100 ML IV ONE (09:25)
[2025-03-17] MEDS: THIAMINE 100mg/ml INJ (200mg/2ml VIAL) IV ONE (09:30)
[2025-03-17] MEDS: FOLIC ACID 1 MG in D5W 5% 50 ML INJ SCH (10:34)
--- NOTE | 2025-03-17 10:43 | DVHPN2 ---
Progress Note Date Seen: Mar 17, 2025 Resident Creating Document: RONALDO RAWLS RESDIENT Medical Necessity Reason Pt with a Central, PICC or Fol: No Subjective Review of Systems Patient seen and examined at the bedside. Patient intubated and on mechanical ventilation Review of Systems: RESPIRATORY:Abnormal Other Systems: Patient seen and examined by myself today on rounds with the medicine resident, I agree with his assessment and plan Patient intubated on ventilator Objective vital signs Vital Sign Date Time Temp Pulse Resp B/P (MAP) Pulse Ox O2 Delivery O2 Flow Rate FiO2 03/17/25 09:21 53 20 98/65 (76) 100 30 03/17/25 06:00 Mechanical Ventilator+ 03/17/25 04:00 98.2 98.2 03/16/25 08:18 2 Total Intake and Output 03/16/25 03/16/25 03/17/25 15:00 23:00 07:00 Intake Total 200 ml 693.5 ml 646.0 ml Output Total 325 ml 850 ml Balance 200 ml 368.5 ml -204.0 ml medications Current Medications Medications Dose Ordered Sig/Wally Route Start Time Stop Time Status Last Admin Dose Admin Ondansetron HCl 4 mg Q4HP PRN IV 03/12/25 00:00 Hydralazine HCl 10 mg Q6HP PRN IV 03/12/25 17:30 03/12/25 18:51 10 MG Lorazepam 1 mg Q8HP PRN IV 03/12/25 21:45 03/12/25 21:58 1 MG Ceftriaxone Sodium 50 ml @ 100 mls/hr DAILY@09 IV 03/13/25 09:00 03/17/25 09:43 100 MLS/HR Metronidazole 100 ml @ 100 mls/hr Q8HR IV 03/13/25 14:00 03/17/25 05:53 100 MLS/HR Dextrose 1,000 ml @ 100 mls/hr Q10H IV 03/16/25 12:15 03/17/25 09:27 100 MLS/HR Midazolam HCl 100 ml @ 1 mls/hr Q24H IV 03/16/25 16:30 03/16/25 16:39 1 MLS/HR Fentanyl Citrate 250 ml @ 2.5 mls/hr Q24H IV 03/16/25 16:30 03/16/25 16:42 2.5 MLS/HR Diagnostic Test (Pha) 1 strip Q6HR 03/16/25 18:00 03/17/25 05:55 1 STRIP Insulin Human Regular FOLLOW SLIDING SCALE Q6HR SC 03/16/25 18:00 03/17/25 05:55 4 UNITS Dextrose 50 ml UD IV 03/16/25 17:15 Amino Acids 0 ml @ 0 mls/hr PER PHARMACY IV 03/16/25 17:15 Pantoprazole Sodium 50 ml @ 10 mls/hr Q5H IV 03/16/25 17:15 03/17/25 07:16 10 MLS/HR Folic Acid 1 mg/ Dextrose 50.2 ml @ 200.8 mls/ hr DAILY INJ 03/17/25 10:00 03/17/25 10:34 200.8 MLS/HR Thiamine HCl 100 mg DAILY IV 03/18/25 10:00 Potassium Acetate 20 meq/Potassium Phosphate 44 meq/ Calcium Gluconate 4.6 meq/ Multivitamins 10 ml/Chromium/ Copper/Manganese/ Zinc 1 ml/Amino Acids/Dextrose/ Purified Water 940.8924 ml @ 40 mls/hr [id number] IV 03/17/25 22:00 03/18/25 21:59 Atorvastatin Calcium 40 mg HS PO 03/17/25 22:00 UNV Examination General: RASS -3, afebrile, mucosae are dry, cachectic Cardiovascular: Normal S1 and S2. No murmurs, gallops or rubs Respiratory: Mechanically assisted ventilation, equal bilateral airway entree. Clear lung sounds on auscultation Mechanical ventilation setting: GI: Soft, nontender, no organomegaly, normal bowel sounds : Barrios catheter n place, clear yellow urine in collection bag MSK/skin: Mobilization of limbs cannot be evaluated. Skin is dry and warm. IV accesses: Neurological: Orientation cannot be assessed. No apparent motor no sensitive deficits. Pupils are isocoric and reactive Examination: LUNGS:Normal, CVS:Normal, MSK:Normal laboratory and microbiology Laboratory Tests 03/17/25 03:45 Test 03/17/25 03:45 Range/Units Serum Glucose 170 H 74-106 mg/dL Microbiology Date/Time Source Procedure Growth Status 03/16/25 16:06 Sputum Gram Stain - Final Resulted 03/16/25 16:06 Sputum Respiratory Culture - Preliminary Resulted 03/13/25 11:53 Stool Stool Culture - Final Complete 03/13/25 11:53 Stool Shiga Toxin I & II - Final Complete 03/12/25 11:55 Urine - [place] Urine Culture - Final Complete 03/11/25 15:36 Blood Blood Culture - Final NO GROWTH AFTER 5 DAYS OF INCUBATION. Complete Labs and/or images reviewed: Labs reviewed by me, Image(s) reviewed by me Problem List/Assessment/Plan Problem List/Assessment/Plan 49 years old male with past medical history of CVA, dyslipidemia, hypertension, left knee surgery, Chronic kidney disease, history of severe Acute kidney injury needed inpatient dialysis previous admission here and then renal recovery presented with chief complaints of diarrhea for the past 5 to 6 days, he also has history of perforated duodenal ulcer status post exploratory laparotomy previous admission, cholecystitis, status post tracheostomy Patient presented to emergency room with hemoglobin of 4.2,s/p 3 U prbc,, s/p egd noted findings. Assessment: GIOVANI, on CKD 2, VMN hypernatremia/dehydration Duodenal ulcer leading to GI bleeding and severe anemia, status post 3 PRBC transfusion CVA Recurrent CVA Hypertension C diff diarrhea Severe protein malnutrition/cachexia Hypokalemia Hypophosphatemia * Sedated and on mechanical ventilation with a setting RR 20, VT 500, FiO2 30% and peep 5 * CT scan shows left renal atrophy * Head CT 03/16 shows, new medial right parieto-occipital focal region of diminished parenchymal attenuation within the medial right parietal occipital lobes. This is concerning for an acute to subacute infarct. Recommend further evaluation with MRI * FENa 0.4 Plan/recommendation: (Dr. Anderson) * D5W at 100 mL/hour * Replete potassium and phosphate * We will follow up with the patient * Strict I&Os Thank you for giving us the opportunity to take care of the outpatient. Please call back if you have any questions/concerns. Plan discussed with: Other (RN) My Orders My Orders Orders - RONALDO RAWLS Procedure Category Date Status Time D5w 5% (Dextrose 5%) PHA 03/16/25 In Process 12:15 Kidney US 03/16/25 Resulted 12:14 Folic Acid PHA 03/17/25 In Process 10:00 Thiamine Inj PHA 03/18/25 In Process 10:00 Dietary Evaluation Review Recommendations by RD: Increase Calorie Intake, PPN/TPN Comments: Pt meets criteria 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 based on severe wt loss 35lb/24% in 5 month, intake <50% estimated requirement x 5 days, severe muscle wasting and fat depletion Nutrition Recommendation: 1) PPN/TPN if NPO continues 2) Advance to soft diet as medically feasible 3) Ensure Enlive 240ml TID if pt resumes PO diet 4) Monitor NPO status, lab values, weight trend, and I/O Expected Outcomes/Goals: Intake to meet >75% estimated needs GI symptoms to improve Fu 2-3 days Food and Nutrition Intake (Sev: <50% est energy req 5days Interpretation of weight loss: >10% in 6 months Body Fat Depletion (Severe): Mod to Severe Depletion Muscle Mass (Severe): Mod to Severe Depletion Protein Calorie Malnutrition: Severe Is there a minimum of two crit: Yes CC Plasma Assessment Blood Product Administration S: [id number] RONALDO RAWLS Mar 17, 2025 10:42 MILADY ANDERSON MD Mar 17, 2025 11:10
[2025-03-17 11:13] LABS: Base Excess 3.7 mmol/L (-2.0-3.0)
[2025-03-17] MEDS: POTASSIUM PHOSPHATE 44 MEQ in D5W 5% 250 ML IV ONE ×2 (11:50→22:05)
--- NOTE | 2025-03-17 13:50 | DVHPNRES ---
Progress Note Date Seen: Mar 17, 2025 Resident Creating Document: SKY DASH RESIDENT Medical Necessity Reason Pt with a Central, PICC or Fol: Yes Subjective Review of Systems Jossue Perez he is a 49-year-old male past medical history of hypertension, hyperlipidemia, DVT, 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 The patient mentions he had passage of stool 7 times yesterday which was tarry black in color. Patient mentions he also had abdominal pain, nausea and a few episodes of vomiting for the last 2 days. He denies any fever,weakness or weight loss. He reports history of perforated duodenal ulcer s/p exp lap with prolonged ICU stay complicated with sepsis from cholecystitis s/p tracheostomy and removal. On arrival to the hospital, his hemoglobin was 4.2 and he had to be transfused with 2 units of PRBCs. He was kept NPO and NG tube placed. GI was consulted and they recommended continuing with IV Protonix drip scheduled patient for EGD on 03/13/2025. Patient was seen and examined on the bedside. He is on mechanical ventilation with FiO2 30%, Tidal volume 450 mL, respiratory rate 20, peep 5. 12 hours NG suction is 350 mL which is bloody coffee-ground, patient had bowel movement last night was black tarry stool. Hemoglobin dropped to 7.2 to the and patient received 1 unit of PRBC. Spoke with nuclear medicine and mentioned nuclear medicine bleeding scan not possible now, as patient is intubated and on mechanical ventilation. The patient is off pressor and on Versed , fentanyl and protonix drip. We are continuing TPN for nutrition. Objective vital signs Vital Sign Date Time Temp Pulse Resp B/P (MAP) Pulse Ox O2 Delivery O2 Flow Rate FiO2 03/17/25 13:44 55 20 115/75 (88) 100 30 03/17/25 12:00 98.1 98.1 03/17/25 08:00 Mechanical Ventilator+ 03/16/25 08:18 2 Total Intake and Output 03/16/25 03/16/25 03/17/25 15:00 23:00 07:00 Intake Total 200 ml 693.5 ml 659.0 ml Output Total 325 ml 850 ml Balance 200 ml 368.5 ml -191.0 ml medications Current Medications Medications Dose Ordered Sig/Wally Route Start Time Stop Time Status Last Admin Dose Admin Ondansetron HCl 4 mg Q4HP PRN IV 03/12/25 00:00 Hydralazine HCl 10 mg Q6HP PRN IV 03/12/25 17:30 03/12/25 18:51 10 MG Lorazepam 1 mg Q8HP PRN IV 03/12/25 21:45 03/12/25 21:58 1 MG Ceftriaxone Sodium 50 ml @ 100 mls/hr DAILY@09 IV 03/13/25 09:00 03/17/25 09:43 100 MLS/HR Metronidazole 100 ml @ 100 mls/hr Q8HR IV 03/13/25 14:00 03/17/25 13:33 100 MLS/HR Dextrose 1,000 ml @ 100 mls/hr Q10H IV 03/16/25 12:15 03/17/25 09:27 100 MLS/HR Midazolam HCl 100 ml @ 1 mls/hr Q24H IV 03/16/25 16:30 03/17/25 13:28 3 MLS/HR Fentanyl Citrate 250 ml @ 2.5 mls/hr Q24H IV 03/16/25 16:30 03/16/25 16:42 2.5 MLS/HR Diagnostic Test (Pha) 1 strip Q6HR 03/16/25 18:00 03/17/25 12:00 1 STRIP Insulin Human Regular FOLLOW SLIDING SCALE Q6HR SC 03/16/25 18:00 03/17/25 12:02 2 UNITS Dextrose 50 ml UD IV 03/16/25 17:15 Amino Acids 0 ml @ 0 mls/hr PER PHARMACY IV 03/16/25 17:15 Pantoprazole Sodium 50 ml @ 10 mls/hr Q5H IV 03/16/25 17:15 03/17/25 11:35 10 MLS/HR Folic Acid 1 mg/ Dextrose 50.2 ml @ 200.8 mls/ hr DAILY INJ 03/17/25 10:00 03/17/25 10:34 200.8 MLS/HR Thiamine HCl 100 mg DAILY IV 03/18/25 10:00 Potassium Acetate 20 meq/Potassium Phosphate 44 meq/ Calcium Gluconate 2.3 meq/ Multivitamins 10 ml/Chromium/ Copper/Manganese/ Zinc 1 ml/Amino Acids/Dextrose/ Purified Water 935.9462 ml @ 40 mls/hr [id number] IV 03/17/25 22:00 03/18/25 21:59 Atorvastatin Calcium 40 mg HS PO 03/17/25 22:00 Future Hold Examination General: RASS -3, afebrile, mucosae are moist Cardiovascular: Normal S1 and S2. No murmurs, gallops or rubs Respiratory: Mechanically assisted ventilation, equal bilateral airway entree. Clear lung sounds on auscultation Abdomen: Soft, nontender, no organomegaly, normal bowel sounds MSK/skin: Mobilization of limbs cannot be evaluated. Skin is dry and warm. Neurological: Orientation cannot be assessed. No apparent motor no sensitive deficits. Pupils are isocoric and reactive laboratory and microbiology Laboratory Tests 03/17/25 03:45 Test 03/17/25 03:45 Range/Units Serum Glucose 170 H 74-106 mg/dL Microbiology Date/Time Source Procedure Growth Status 03/16/25 16:06 Sputum Gram Stain - Final Resulted 03/16/25 16:06 Sputum Respiratory Culture - Preliminary Resulted 03/13/25 11:53 Stool Stool Culture - Final Complete 03/13/25 11:53 Stool Shiga Toxin I & II - Final Complete 03/12/25 11:55 Urine - [place] Urine Culture - Final Complete 03/11/25 15:36 Blood Blood Culture - Final NO GROWTH AFTER 5 DAYS OF INCUBATION. Complete Labs and/or images reviewed: Labs reviewed by me, Image(s) reviewed by me Problem List/Assessment/Plan Problem List/Assessment/Plan Assessment and plan : NEURO: Acute metabolic encephalopathy secondary to acute ischemic stroke Acute or subacute ischemic stroke RASS score: - 3 - CT head without contrast demonstrated new medial right parieto-occipital focal region of diminished parenchymal attenuation within the medial right parietal occipital lobes. This is concerning for an acute to subacute infarct with chronic multifocal lacunar infarct - Pending MRI - Neurology on board - hold aspirin and Plavix for now because of GI bleeding - Atorvastatin 40 mg at HS through GT tube CARDIOVASCULAR: Chronic diastolic heart failure with preserved ejection fraction - Echo on 11/12 demonstrated EF 65%, MILD LVH AND MILD LV DIASTOLIC DYSFUNCTION - elevated BNP - CxR showed Bilateral interstitial opacities, small left basilar consolidation and pleural effusion PULMONARY: Acute hypoxic respiratory failure S/P intubation GASTROINTESTINAL: Acute GI bleed upper vs lower Partial small Intestinal obstruction likely secondary to fecal impaction. Cholelithiasis C diff positive Transaminitis likely secondary to low hepatic perfusion -CT abdomen/pelvis showed low-grade distal partial obstruction due to fecal retention. - Gastrograffin study showed Contrast is identified within the colon by 3 hours. No evidence of bowel obstruction. -EGD on 03/13/25 showed 1-2 cm sliding-type hiatal hernia with severe grade C linear erosive esophagitis with esophageal ulcers extending into the distal 15 cm of the esophagus persistent duodenal bulb ulcer seen just inside the pyloric opening which was large coalescing with a visible sutures; there was no active bleeding or visible vessel but there was acute on chronic inflammation deformity of the postbulbar duodenal area and I was able to see the 2nd part of the duodenum but there was area of debris and ongoing chronic ulceration inflammation and the endoscope was not advanced beyond this area mild gastritis and some old coffee-ground within the stomach - NPO - NG with LIS - IV Protonix drip - Zofran 4 mg IV q.4 PRN - IV 5% DA at 100 mL/hour - IV ceftriaxone 1 gm daily and IV metronidazole 500 mg 8hrly. - GI and surgery are on the board - pending bleeding scan as patient is intubated and on mechanical ventilation - Monitor Hand H, transfuse if hemoglobin less than 7 GENITOURINARY: GIOVANI on CKD likely hemodynamically mediated/VMN - Nephrology on board - IV normal saline 500 mL bolus given yesterday METABOLIC: Hypernatremia Hypokalemia Hypophosphatemia - IV 5% DA and 100 mL/hour - replaced potassium and phosphate - monitor BMP HEME: Severe microcytic hypochromic anemia due to GI bleeding Iron deficiency due to above - Patient received 4 units of PRBC - Monitor H&H INFECTIOUS DISEASE: Acute C diff infection - hold po vanc because of upper GI bleeding DIET: TPN DVT prophylax: Hold due to GI bleeding GI prophylaxis: Protonix drip Bowel regimen: Code status: Full code LINES/DRAINS/ACCESS: ETT: Intubated on 03/16/2025 IV access: Right IJ placed on 03/16/2025 Drips: Fentanyl, Versed, Protonix drip Barrios catheter: DISPOSITION: ICU Patient's status discussed with RN, Critical care time spent more than 73 minutes, including patient care, chart review, and updating the family. Excluding any procedures. Case discussed with Dr. Grant Plan discussed with: Other (RN) My Orders My Orders Orders - SKY DASH RESIDENT Procedure Category Date Status Time Abg W/ Co-Ox RT 03/16/25 Logged 13:50 Chest Portable XY 03/16/25 Resulted 13:59 BIPAP RT 03/16/25 Logged 14:13 BIPAP RT 03/16/25 Logged 14:42 Glucose Blood PHA 03/16/25 In Process (Accu-Chek Comfort 18:00 Insulin R (Human) PHA 03/16/25 In Process (Insulin R) 18:00 Dextrose 50% Syringe PHA 03/16/25 In Process 17:15 Amino Acid Infusion PHA 03/16/25 In Process In D10w (Clinimix 4. 22:00 Tpn Per Pharmacy PHA 03/16/25 In Process 17:15 Pantoprazole PHA 03/16/25 In Process 40mg/50ml Ns Ae 17:15 Phosphorus LAB 03/17/25 Logged 10:00 Potassium LAB 03/17/25 Logged 09:19 Amino Acid PHA 03/17/25 In Process Infusion... 22:00 Comprehensive LAB 03/18/25 Verified Metabolic Panel 04:00 Magnesium LAB 03/18/25 Verified 04:00 Phosphorus LAB 03/18/25 Verified 04:00 Tpn Per Pharmacy CINTHIA 03/17/25 In Process 22:00 Hiv 1&2 Antibody LAB 03/17/25 Logged 10:41 Bi Lat Upper Dvt US 03/17/25 Logged 11:41 Dietary Evaluation Review Recommendations by RD: Increase Calorie Intake, PPN/TPN Comments: Pt meets criteria 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 based on severe wt loss 35lb/24% in 5 month, intake <50% estimated requirement x 5 days, severe muscle wasting and fat depletion Nutrition Recommendation: 1) PPN/TPN if NPO continues 2) Advance to soft diet as medically feasible 3) Ensure Enlive 240ml TID if pt resumes PO diet 4) Monitor NPO status, lab values, weight trend, and I/O Expected Outcomes/Goals: Intake to meet >75% estimated needs GI symptoms to improve Fu 2-3 days Food and Nutrition Intake (Sev: <50% est energy req 5days Interpretation of weight loss: >10% in 6 months Body Fat Depletion (Severe): Mod to Severe Depletion Muscle Mass (Severe): Mod to Severe Depletion Protein Calorie Malnutrition: Severe Is there a minimum of two crit: Yes CC Plasma Assessment Blood Product Administration S: [id number] Date of Service: Mar 17, 2025 Billing Provider: HOLLAND GRANT MD Common Visit Codes: [id number] CARE 30-74 MIN SKY DASH RESIDENT Mar 17, 2025 13:50 HOLLAND GRANT MD Mar 18, 2025 21:40
--- NOTE | 2025-03-17 17:13 | DVH ---
PROCEDURE: MRI BRAIN HEAD WO CONTRAST INDICATION: CVA EXAM DATE: 03/16/2025 09:53 PM COMPARISON: CT HEAD WITHOUT CONTRAST on DOS: 03/17/25, MRI BRAIN HEAD WO CONTRAST on DOS: 11/01/24, CT HEAD WITHOUT CONTRAST on DOS: 10/24/24, CT HEAD WITHOUT CONTRAST on DOS: 10/04/24, MRI BRAIN HEAD WO CO NTRAST on DOS: 08/23/23 TECHNIQUE: MRI of the brain without intravenous contrast. FINDINGS: Multiple areas of diffusion restriction throughout the medial right occipital lobe, posterior left oc cipital lobe, and left lopes radiata white matter tracts. Few additional tiny foci of diffusion rest riction at the anterior right parietal cortex. There is no evidence of acute intracranial hemorrhage, extra-axial collection, mass effect, midline s hift, herniation or hydrocephalus. The ventricles, sulci and cisterns appear age appropriate. Moderate generalized cerebral volume loss with scattered foci of increased T2/FLAIR signal in the sub cortical, deep, and periventricular white matter of both cerebral hemispheres compatible with mild-to -moderate chronic small vessel ischemia. Multiple remote lacunar infarcts within the deep white caryn er both cerebral hemispheres. Few tiny foci of remote microhemorrhage throughout the brainstem and both cerebral hemispheres. The major vascular flow voids are present. The visualized paranasal sinuses and mastoid air cells are clear. The surrounding soft tissues and o sseous structures are unremarkable. IMPRESSION: Infarcts involving multiple vascular territories as described.
--- NOTE | 2025-03-17 19:16 | DVHPN2 ---
Progress Note - Dictate Date Seen: Mar 17, 2025 Medical Necessity Reason Pt with a Central, PICC or Fol: Yes Subjective Patient is in ICU 101, intubated sedated He is on mechanical ventilation with FiO2 30%, respiratory rate 20, peep 5. 12 hours NG suction is 350 mL which is bloody coffee-ground, patient had bowel movement last night was black tarry stool. Hemoglobin dropped to 7.2 to the and patient received 1 unit of PRBC. The patient is off pressor and on Versed , fentanyl and protonix drip. Patient was transported for MRI of the brain Patient has [id number]-yjxqitag elevation in liver enzymes which are trending down likely due to hypoxic liver injury Hepatitis panel is negative and HIV is negative and ferritin is normal vital signs Vital Sign Date Time Temp Pulse Resp B/P (MAP) Pulse Ox O2 Delivery O2 Flow Rate FiO2 03/17/25 18:56 99 Mechanical Ventilator 03/17/25 18:56 30 30 03/17/25 18:56 55 20 110/72 (85) 03/17/25 18:45 99.0 99.0 03/16/25 08:18 2 Total Intake and Output 03/16/25 03/16/25 03/17/25 15:00 23:00 07:00 Intake Total 200 ml 693.5 ml 707.5 ml Output Total 325 ml 850 ml Balance 200 ml 368.5 ml -142.5 ml medications Current Medications Medications Dose Ordered Sig/Wally Route Start Time Stop Time Status Last Admin Dose Admin Ondansetron HCl 4 mg Q4HP PRN IV 03/12/25 00:00 Hydralazine HCl 10 mg Q6HP PRN IV 03/12/25 17:30 03/12/25 18:51 10 MG Lorazepam 1 mg Q8HP PRN IV 03/12/25 21:45 03/12/25 21:58 1 MG Ceftriaxone Sodium 50 ml @ 100 mls/hr DAILY@09 IV 03/13/25 09:00 03/17/25 09:43 100 MLS/HR Metronidazole 100 ml @ 100 mls/hr Q8HR IV 03/13/25 14:00 03/17/25 13:33 100 MLS/HR Dextrose 1,000 ml @ 100 mls/hr Q10H IV 03/16/25 12:15 03/17/25 09:27 100 MLS/HR Midazolam HCl 100 ml @ 1 mls/hr Q24H IV 03/16/25 16:30 03/17/25 13:28 3 MLS/HR Fentanyl Citrate 250 ml @ 2.5 mls/hr Q24H IV 03/16/25 16:30 03/17/25 16:37 12.5 MLS/HR Diagnostic Test (Pha) 1 strip Q6HR 03/16/25 18:00 03/17/25 17:24 1 STRIP Insulin Human Regular FOLLOW SLIDING SCALE Q6HR SC 03/16/25 18:00 03/17/25 12:02 2 UNITS Dextrose 50 ml UD IV 03/16/25 17:15 Amino Acids 0 ml @ 0 mls/hr PER PHARMACY IV 03/16/25 17:15 Pantoprazole Sodium 50 ml @ 10 mls/hr Q5H IV 03/16/25 17:15 03/17/25 17:26 10 MLS/HR Folic Acid 1 mg/ Dextrose 50.2 ml @ 200.8 mls/ hr DAILY INJ 03/17/25 10:00 03/17/25 10:34 200.8 MLS/HR Thiamine HCl 100 mg DAILY IV 03/18/25 10:00 Potassium Acetate 20 meq/Potassium Phosphate 44 meq/ Calcium Gluconate 2.3 meq/ Multivitamins 10 ml/Chromium/ Copper/Manganese/ Zinc 1 ml/Amino Acids/Dextrose/ Purified Water 935.9462 ml @ 40 mls/hr [id number] IV 03/17/25 22:00 03/18/25 21:59 Atorvastatin Calcium 40 mg HS PO 03/17/25 22:00 Future Hold objective General-cachectic male HEENT-normocephalic, no icterus, no pallor, neck supple Respiratory-fair air entry bilateral, no rhonchi, no wheeze [id number] heard, no murmurs appreciated Abdominal-soft, nontender, nondistended Musculoskeletal-no pedal edema, no calf tenderness Genitourinary-deferred Neuro-awake alert oriented x3, Psychiatric-not agitated, cooperative, laboratory and microbiology Laboratory Tests 03/17/25 14:40 03/17/25 03:45 Test 03/17/25 03:45 Range/Units Serum Glucose 170 H 74-106 mg/dL MRI Brain IMPRESSION: Multiple remote Infarcts involving multiple vascular territories as described. CXR IMPRESSION: No significant change from the previous day. Stable support devices. Bilateral interstitial opacities, small left basilar consolidation and pleural effusion. CT SCAN OF HEAD IMPRESSION: 1. New medial right parieto-occipital focal region of diminished parenchymal attenuation within the medial right parietal occipital lobes. This is concerning for an acute to subacute infarct. Recommend further evaluation with MRI. 2. No evidence of acute intracranial hemorrhage, mass effect or hydrocephalus. 3. Chronic sequelae of microangiopathy and atrophic cortical volume loss. 4. Multifocal chronic lacunar infarcts as outlined above. Problems(with codes): (1) C. difficile colitis (2) Elevated liver enzymes (3) Duodenal ulcer disease (4) Severe anemia (5) Leukocytosis (6) TIA (transient ischemic attack) (7) Altered mental status Prognosis Plan Keep NPO IV TPN IV Protonix drip NG tube to low intermittent suction Patient has severe duodenal ulceration and deformity in the duodenal bulb and postbulbar area Patient would be at high-risk for bleeding if he needs anticoagulation Prognosis remains guarded and there was a suspicion for a new acute infarct Dietary Evaluation Review Recommendations by RD: Increase Calorie Intake, PPN/TPN Comments: Pt meets criteria 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 based on severe wt loss 35lb/24% in 5 month, intake <50% estimated requirement x 5 days, severe muscle wasting and fat depletion Nutrition Recommendation: 1) PPN/TPN if NPO continues 2) Advance to soft diet as medically feasible 3) Ensure Enlive 240ml TID if pt resumes PO diet 4) Monitor NPO status, lab values, weight trend, and I/O Expected Outcomes/Goals: Intake to meet >75% estimated needs GI symptoms to improve Fu 2-3 days Food and Nutrition Intake (Sev: <50% est energy req 5days Interpretation of weight loss: >10% in 6 months Body Fat Depletion (Severe): Mod to Severe Depletion Muscle Mass (Severe): Mod to Severe Depletion Protein Calorie Malnutrition: Severe Is there a minimum of two crit: Yes Plan discussed with: Other (Dr Gaitan) CC Plasma Assessment Blood Product Administration S: [id number] GURJIT NOBLE MD Mar 17, 2025 19:16
[2025-03-17] MEDS ORDERED: TPN PER PHARMACY IV NR (22:00)
[2025-03-17] MEDS ORDERED: ATORVASTATIN 20 MG TAB PO SCH (22:00)
[2025-03-17 22:52] LABS: Hematocrit 25.6 % (41.0-53.0); Hemoglobin 8.3 g/dL (13.5-17.5)
[2025-03-18] VITALS (107 sets, daily range): BP systolic 100–159; BP diastolic 58–94; PULSE 45–74; RESP 20; TEMP 97–99.3; O2SAT 98–100
[2025-03-18 04:50] LABS: Hematocrit 25.9 % (41.0-53.0); Hemoglobin 8.6 g/dL (13.5-17.5)
--- NOTE | 2025-03-18 04:59 | DVH ---
CHEST RADIOGRAPH Indication: On mechanical ventilation Technique: Single frontal view of the chest was obtained COMPARISON: XY CHEST PORTABLE on DOS: 03/17/25, XY CHEST PORTABLE on DOS: 03/16/25, XY CHEST PORTABLE on DOS: 03/16/25, XY CHEST PORTABLE on DOS: 03/15/25, XY CHEST XRAY 1 VIEW on DOS: 03/13/25 FINDINGS: Lines and Tubes: Slight interval advancement of the endotracheal tube such that the tip now projects approximately 2.2 cm above the level of the dunia. Remaining lines and tubes unchanged. Lungs: Stable small left pleural effusion. No pneumothorax. Cardiomediastinal contours: Unremarkable Bones: Unremarkable IMPRESSION: 1. Slight interval advancement of the endotracheal tube such that the tip now projects approximately 2.2 cm above the level of the dunia. Remaining lines and tubes unchanged. 2. Stable small left pleural effusion.
[2025-03-18 05:11] LABS: Carbon Dioxide 26 mmol/L (20-31)
[2025-03-18 05:12] LABS: Anion Gap 8 (5-15); BUN/Creatinine Ratio 34.9 (10.0-20.0); Bilirubin, Total 0.6 mg/dL (0.2-1.0); Magnesium 2.0 mg/dL (1.6-2.6); Potassium 3.8 mmol/L (3.5-5.1); Sodium 143 mmol/L (136-145)
[2025-03-18 05:14] LABS: Alanine Aminotransferase 344 U/L (7-40); Albumin 2.5 g/dL (3.2-4.8); Alkaline Phosphatase 239 U/L (46-116); Blood Urea Nitrogen 52 mg/dL (9-23); Calcium 7.2 mg/dL (8.7-10.4); Chloride 109 mmol/L (98-107); Glucose 165 mg/dL (74-106); Total Protein 4.9 g/dL (5.7-8.2)
[2025-03-18 07:32] LABS: Base Excess -0.5 mmol/L (-2.0-3.0)
[2025-03-18 08:18] LABS: Hematocrit 26.1 % (41.0-53.0); Hemoglobin 8.6 g/dL (13.5-17.5); Mean Corpuscular Hemoglobin 27.4 pg (28.0-32.0); Mean Corpuscular Volume 83.2 fL (80.0-100.0); Nucleated Red Blood Cells % 0.5 %
--- NOTE | 2025-03-18 08:48 | DVHPN2 ---
Progress Note - Dictate Date Seen: Mar 18, 2025 Medical Necessity Reason Pt with a Central, PICC or Fol: Yes Subjective Mr. Perez is a 49 years old right-handed gentleman with a history of hypertension, dyslipidemia, multiple strokes, DVT, he was brought to the [facility] on 03/11/2025 with a chief complaint of diarrhea, history is obtained from his , the chart review I saw him on 08/23/2023 for TIA, 10/27/2024 for encephalopathy I have seen and examined the patient, I have talked to his nurse, he is intubated, responsive to light touch. MR brain showed acute multiple strokes He does not move the right arm Versed 3 mg/hour, fentanyl 125 mcg/hour Stool occult blood, 03/13/2025: Positive UDS, 03/12/2025: Negative Plasma alcohol, 03/12/2025: <3 Urinalysis, 03/12/2025: WBC: One, urine leukocyte esterase: Negative ABG, 03/16/25: Hypoxia, respiratory acidosis WBC/Hb/PLT'/MCV, 03/16/25: 10.l 6/7.9/339/82.4 Na, 03/11/2025: 129, 03/12/2025: 130, 129, 03/15/25: 145, 03/16/25: 142 BUNs/CR, 08/22/2023: 15/1.45, 03/11/2025: 55/1.77, 03/13/2025: 43/1.58, 02/2725: 65/2.56 GFR, 08/22/2023: 59 TBI/AST/ALT/AP,: 0.8/269/450/398 TG/CHO L/LDL/HDL, 08/2023: 136/166/111/39 Vitamin B12, 03/12/25: 852 Folic acid, 03/12/2025: 12.28 TSH, 08/23/2023: 4.25 Extremity venous study, right arm, 11/09/2024: Thrombus is seen in the cephalic vein in the forearm. DONAL, 08/23/2023: 1. No evidence of intracardiac source of embolus in the study conducted today. 2. Normal valves without significant masses or change vegetations were discernible. 3. No evidence of intra-atrial shunting by bubble study and color Doppler. 4. Mild atherosclerotic plaquing was visualized in the arch of the aorta without evidence of dissection in the visualized part EGD, 03/13/2025: 1. 1-2 cm sliding-type hiatal hernia with severe grade C linear erosive esophagitis with esophageal ulcers extending into the distal 15 cm of the esophagus 2. Patient had a persistent duodenal bulb ulcer seen just inside the pyloric opening which was large coalescing with a visible sutures; there was no active bleeding or visible vessel but there was acute on chronic inflammation 3. Patient had deformity of the postbulbar duodenal area and I was able to see the 2nd part of the duodenum but there was area of debris and ongoing chronic ulceration inflammation and the endoscope was not advanced beyond this area 3. Patient had mild gastritis and some old coffee-ground within the stomach Chest x-ray, 03/12/2025: Mild chronic appearing left basilar pulmonary airspace disease and possible small pleural effusion Chest x-ray, 03/13/2025: 1. Enteric tube terminates in the stomach. 2. Worsening bilateral interstitial and alveolar opacities. Chest x-ray, : Endotracheal tube and right IJ approach central venous catheters are in satisfactory position. Trace lzit-gvqoidh-lvqj-right pleural effusions with right retro lower lung zone linear atelectasis/ fluid within the fissure. CT head, 10/24/2024: 1. No intracranial hemorrhage or mass effect. 2. Pyyp-xa-dpqounem chronic microvascular ischemic changes. 3. Old bilateral basal ganglia lacunar infarcts. 4. Small bilateral mastoid effusions. CT head, 03/17/2025: 1. New medial right parieto-occipital focal region of diminished parenchymal attenuation within the medial right parietal occipital lobes. This is concerning for an acute to subacute infarct. Recommend further evaluation with MRI. 2. No evidence of acute intracranial hemorrhage, mass effect or hydrocephalus. 3. Chronic sequelae of microangiopathy and atrophic cortical volume loss.4. Multifocal chronic lacunar infarcts as outlined above. CT abdomen/pelvis, 10/04/2024: 1. Extensive intra-abdominal free air concerning for perforated viscus. Surgical consultation is recommended. 2. Enteritis is seen in multiple loops of small bowel in the left hemiabdomen. 3. Moderate abdominopelvic ascites. 4. Small right pleural effusion. CTA neck, head, 08/22/2023:1. CTA head demonstrates no evidence of large vessel occlusion, aneurysm, or significant stenosis. 2. CTA neck demonstrates no evidence of carotid or vertebral dissection or significant stenosis. 3. No noncontrast CT head was performed. 4. Additional findings as detailed above MRI head, 08/23/2023: No acute infarct, intracranial hemorrhage, mass effect, or hydrocephalus. Moderate periventricular and deep subcortical white matter T2 hyperintensities which are nonspecific, but most likely related to sequela of chronic microvascular ischemic changes (I have reviewed the MRI films with our in-house radiologist, Dr. Sosa, the patient had bilateral multiple subacute/chronic infarcts) MRI head, 11/01/2024: No acute cerebrovascular ischemia. Dpxp-uk-ouevakoj chronic microvascular ischemic changes. Bilateral mastoid effusions. Old bilateral basal ganglia / lopes radiata infarcts. MR head, 03/16/2025: Infarcts involving multiple vascular territories as described. vital signs Vital Sign Date Time Temp Pulse Resp B/P (MAP) Pulse Ox O2 Delivery O2 Flow Rate FiO2 03/18/25 08:15 47 20 141/81 (101) 100 03/18/25 08:00 97.7 97.7 03/18/25 08:00 Mechanical Ventilator+ 30 30 03/16/25 08:18 2 Total Intake and Output 03/17/25 03/17/25 03/18/25 15:00 23:00 07:00 Intake Total 1939.7 ml 1267.0 ml 1424.0 ml Output Total 350 ml 1025 ml Balance 1939.7 ml 917.0 ml 399.0 ml medications Current Medications Medications Dose Ordered Sig/Wally Route Start Time Stop Time Status Last Admin Dose Admin Ondansetron HCl 4 mg Q4HP PRN IV 03/12/25 00:00 Hydralazine HCl 10 mg Q6HP PRN IV 03/12/25 17:30 03/12/25 18:51 10 MG Lorazepam 1 mg Q8HP PRN IV 03/12/25 21:45 03/12/25 21:58 1 MG Ceftriaxone Sodium 50 ml @ 100 mls/hr DAILY@09 IV 03/13/25 09:00 03/17/25 09:43 100 MLS/HR Metronidazole 100 ml @ 100 mls/hr Q8HR IV 03/13/25 14:00 03/18/25 05:47 100 MLS/HR Midazolam HCl 100 ml @ 1 mls/hr Q24H IV 03/16/25 16:30 03/17/25 13:28 3 MLS/HR Fentanyl Citrate 250 ml @ 2.5 mls/hr Q24H IV 03/16/25 16:30 03/17/25 16:37 12.5 MLS/HR Diagnostic Test (Pha) 1 strip Q6HR 03/16/25 18:00 03/18/25 05:54 1 STRIP Insulin Human Regular FOLLOW SLIDING SCALE Q6HR SC 03/16/25 18:00 03/18/25 00:12 2 UNITS Dextrose 50 ml UD IV 03/16/25 17:15 Amino Acids 0 ml @ 0 mls/hr PER PHARMACY IV 03/16/25 17:15 Pantoprazole Sodium 50 ml @ 10 mls/hr Q5H IV 03/16/25 17:15 03/18/25 05:47 10 MLS/HR Folic Acid 1 mg/ Dextrose 50.2 ml @ 200.8 mls/ hr DAILY INJ 03/17/25 10:00 03/17/25 10:34 200.8 MLS/HR Thiamine HCl 100 mg DAILY IV 03/18/25 10:00 Potassium Acetate 20 meq/Potassium Phosphate 44 meq/ Calcium Gluconate 2.3 meq/ Multivitamins 10 ml/Chromium/ Copper/Manganese/ Zinc 1 ml/Amino Acids/Dextrose/ Purified Water 935.9462 ml @ 40 mls/hr [id number] IV 03/17/25 22:00 03/18/25 21:59 03/17/25 22:09 40 MLS/HR Atorvastatin Calcium 40 mg HS PO 03/17/25 22:00 Hold Potassium Acetate 20 meq/Potassium Phosphate 11 meq/ Calcium Gluconate 2.3 meq/ Multivitamins 10 ml/Chromium/ Copper/Manganese/ Zinc 1 ml/Amino Acids/Dextrose/ Purified Water 1,178.4462 ml @ 50 mls/hr [id number] IV 03/18/25 22:00 03/19/25 21:59 Dextrose 1,000 ml @ 30 mls/hr Q24H IV 03/18/25 08:45 UNV objective The patient is well-nourished and well-developed with no distress. The patient is intubated MENTAL STATUS: Subjective CRANIAL NERVES: Pupils are equal, round and nonreactive, pinpoint. There are corneal reflexes and doll's eyes phenomenon. No signs of facial weakness. There are gagging or coughing reflexes SENSATION: responses to pain stimuli. MOTOR: Normal tone in the upper and lower extremity. Normal muscle bulk. No fasciculations. Moves the left arm a little bit REFLEXES: Deep tendon reflexes are symmetrical. No pathological reflexes. CEREBELLAR/COORDINATION: Deferred GAIT/STATION: deferred. laboratory and microbiology Laboratory Tests 03/18/25 04:27 Test 03/18/25 04:27 Range/Units Serum Glucose 165 H 74-106 mg/dL Problem List Altered mental status/Coma Metabolic encephalopathy secondary to sepsis, septic shock, hypernatremia Hypoxic encephalopathy Peptic ulcer, GI bleeding, anemia Respiratory failure New multiple stroke in different arterial territories (MRI 03/18/25) Multiple chronic strokes Maybe secondary to history methamphetamine, cocaine, alcohol use History of alcohol abuse History of cocaine, methamphetamine abuse Assessment/Plan Monitoring Supportive treatment ICU care Stabilize vitals Respiratory support/vent management Follow-up labs IV antibiotics Aspirin 81 mg daily later Lipitor 20 mg daily GI service on case Nephrology service on case More recommended per clinical course This medical document was created using an electronic medical record system with [facility] computerized dictation system. Although this document has been carefully reviewed, there may still be some phonetic and typographical errors. These areas are purely typographical due to imperfect Prognosis guarded Dietary Evaluation Review Recommendations by RD: Increase Calorie Intake, PPN/TPN Comments: Pt meets criteria 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 based on severe wt loss 35lb/24% in 5 month, intake <50% estimated requirement x 5 days, severe muscle wasting and fat depletion Nutrition Recommendation: 1) PPN/TPN if NPO continues 2) Advance to soft diet as medically feasible 3) Ensure Enlive 240ml TID if pt resumes PO diet 4) Monitor NPO status, lab values, weight trend, and I/O Expected Outcomes/Goals: Intake to meet >75% estimated needs GI symptoms to improve Fu 2-3 days Food and Nutrition Intake (Sev: <50% est energy req 5days Interpretation of weight loss: >10% in 6 months Body Fat Depletion (Severe): Mod to Severe Depletion Muscle Mass (Severe): Mod to Severe Depletion Protein Calorie Malnutrition: Severe Is there a minimum of two crit: Yes Plan discussed with: Other Critical Care Time(min): 35 CC Plasma Assessment Blood Product Administration S: [id number] LEANDRO SOSA MD Mar 18, 2025 08:48
[2025-03-18] MEDS: D5W 5% 1,000 ML IV SCH (09:31)
[2025-03-18] MEDS: THIAMINE 100mg/ml INJ (200mg/2ml VIAL) IV SCH (09:31)
--- NOTE | 2025-03-18 10:37 | DVHPN2 ---
Progress Note Date Seen: Mar 18, 2025 Resident Creating Document: RONALDO RAWLS RESDIENT Medical Necessity Reason Pt with a Central, PICC or Fol: Yes Subjective Review of Systems Patient seen and examined at the bedside. Patient intubated and on mechanical ventilation Review of Systems: RESPIRATORY:Abnormal Other Systems: Patient seen and examined by myself today in rounds with the medicine resident I agree with his assessment and plan Patient remained intubated on ventilator Objective vital signs Vital Sign Date Time Temp Pulse Resp B/P (MAP) Pulse Ox O2 Delivery O2 Flow Rate FiO2 03/18/25 10:00 51 20 138/84 (102) 100 03/18/25 10:00 Mechanical Ventilator+ 30 30 03/18/25 08:00 97.7 97.7 03/16/25 08:18 2 Total Intake and Output 03/17/25 03/17/25 03/18/25 15:00 23:00 07:00 Intake Total 1939.7 ml 1267.0 ml 1424.0 ml Output Total 350 ml 1025 ml Balance 1939.7 ml 917.0 ml 399.0 ml medications Current Medications Medications Dose Ordered Sig/Wally Route Start Time Stop Time Status Last Admin Dose Admin Ondansetron HCl 4 mg Q4HP PRN IV 03/12/25 00:00 Hydralazine HCl 10 mg Q6HP PRN IV 03/12/25 17:30 03/12/25 18:51 10 MG Lorazepam 1 mg Q8HP PRN IV 03/12/25 21:45 03/12/25 21:58 1 MG Ceftriaxone Sodium 50 ml @ 100 mls/hr DAILY@09 IV 03/13/25 09:00 03/18/25 09:30 100 MLS/HR Metronidazole 100 ml @ 100 mls/hr Q8HR IV 03/13/25 14:00 03/18/25 05:47 100 MLS/HR Midazolam HCl 100 ml @ 1 mls/hr Q24H IV 03/16/25 16:30 03/17/25 13:28 3 MLS/HR Fentanyl Citrate 250 ml @ 2.5 mls/hr Q24H IV 03/16/25 16:30 03/17/25 16:37 12.5 MLS/HR Diagnostic Test (Pha) 1 strip Q6HR 03/16/25 18:00 03/18/25 05:54 1 STRIP Insulin Human Regular FOLLOW SLIDING SCALE Q6HR SC 03/16/25 18:00 03/18/25 00:12 2 UNITS Dextrose 50 ml UD IV 03/16/25 17:15 Amino Acids 0 ml @ 0 mls/hr PER PHARMACY IV 03/16/25 17:15 Pantoprazole Sodium 50 ml @ 10 mls/hr Q5H IV 03/16/25 17:15 03/18/25 09:30 10 MLS/HR Folic Acid 1 mg/ Dextrose 50.2 ml @ 200.8 mls/ hr DAILY INJ 03/17/25 10:00 03/17/25 10:34 200.8 MLS/HR Thiamine HCl 100 mg DAILY IV 03/18/25 10:00 03/18/25 09:31 100 MG Potassium Acetate 20 meq/Potassium Phosphate 44 meq/ Calcium Gluconate 2.3 meq/ Multivitamins 10 ml/Chromium/ Copper/Manganese/ Zinc 1 ml/Amino Acids/Dextrose/ Purified Water 935.9462 ml @ 40 mls/hr [id number] IV 03/17/25 22:00 03/18/25 21:59 03/17/25 22:09 40 MLS/HR Atorvastatin Calcium 40 mg HS PO 03/17/25 22:00 Hold Potassium Acetate 20 meq/Potassium Phosphate 11 meq/ Calcium Gluconate 2.3 meq/ Multivitamins 10 ml/Chromium/ Copper/Manganese/ Zinc 1 ml/Amino Acids/Dextrose/ Purified Water 1,178.4462 ml @ 50 mls/hr [id number] IV 03/18/25 22:00 03/19/25 21:59 Examination General: RASS -1, afebrile, mucosae are dry, cachectic Cardiovascular: Normal S1 and S2. No murmurs, gallops or rubs Respiratory: Mechanically assisted ventilation, equal bilateral airway entree. Clear lung sounds on auscultation Mechanical ventilation setting: GI: Soft, nontender, no organomegaly, normal bowel sounds : Barrios catheter n place, clear yellow urine in collection bag MSK/skin: Mobilization of limbs cannot be evaluated. Skin is dry and warm. IV accesses: Neurological: Orientation cannot be assessed. No apparent motor no sensitive deficits. Pupils are isocoric and reactive Examination: LUNGS:Normal, CVS:Normal, MSK:Normal Examination: LUNGS:Normal, CVS:Normal, MSK:Abnormal laboratory and microbiology Laboratory Tests 03/18/25 04:27 Test 03/18/25 04:27 Range/Units Serum Glucose 165 H 74-106 mg/dL Microbiology Date/Time Source Procedure Growth Status 03/16/25 16:36 Nose MRSA Screen - Final Complete 03/16/25 16:06 Sputum Gram Stain - Final Resulted 03/16/25 16:06 Sputum Respiratory Culture - Preliminary Resulted 03/13/25 11:53 Stool Stool Culture - Final Complete 03/13/25 11:53 Stool Shiga Toxin I & II - Final Complete 03/12/25 11:55 Urine - Barrios [place] Urine Culture - Final Complete 03/11/25 15:36 Blood Blood Culture - Final NO GROWTH AFTER 5 DAYS OF INCUBATION. Complete Labs and/or images reviewed: Labs reviewed by me, Image(s) reviewed by me Problem List/Assessment/Plan Problem List/Assessment/Plan 49 years old male with past medical history of CVA, dyslipidemia, hypertension, left knee surgery, Chronic kidney disease, history of severe Acute kidney injury needed inpatient dialysis previous admission here and then renal recovery presented with chief complaints of diarrhea for the past 5 to 6 days, he also has history of perforated duodenal ulcer status post exploratory laparotomy previous admission, cholecystitis, status post tracheostomy Patient presented to emergency room with hemoglobin of 4.2,s/p 3 U prbc,, s/p egd noted findings. Assessment: GIOVANI, on CKD 2, VMN Hypovolemic hypernatremia/dehydration Duodenal ulcer leading to GI bleeding and severe anemia, status post 3 PRBC transfusion History of CVA Recurrent CVA Hypertension C diff diarrhea Severe protein malnutrition/cachexia Hypokalemia Hypophosphatemia * Sedated and on mechanical ventilation with a setting RR 20, VT 500, FiO2 30% and peep 5 * CT scan shows left renal atrophy * Head CT 03/16 shows, new medial right parieto-occipital focal region of diminished parenchymal attenuation within the medial right parietal occipital lobes. This is concerning for an acute to subacute infarct. Recommend further evaluation with MRI * FENa 0.4 Plan/recommendation: (Dr. Anderson) * Sodium level normalized, discontinue D5W * Fluid status: 24hr balance +3L * Start 1/2 NS 50 mL/hour * Strict I&Os * We will follow up with the patient Thank you for giving us the opportunity to take care of the outpatient. Please call back if you have any questions/concerns. Plan discussed with: Patient, Other (RN) Dietary Evaluation Review Recommendations by RD: Increase Calorie Intake, PPN/TPN Comments: Pt meets criteria 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 based on severe wt loss 35lb/24% in 5 month, intake <50% estimated requirement x 5 days, severe muscle wasting and fat depletion Nutrition Recommendation: 1) PPN/TPN if NPO continues 2) Advance to soft diet as medically feasible 3) Ensure Enlive 240ml TID if pt resumes PO diet 4) Monitor NPO status, lab values, weight trend, and I/O Expected Outcomes/Goals: Intake to meet >75% estimated needs GI symptoms to improve Fu 2-3 days Food and Nutrition Intake (Sev: <50% est energy req 5days Interpretation of weight loss: >10% in 6 months Body Fat Depletion (Severe): Mod to Severe Depletion Muscle Mass (Severe): Mod to Severe Depletion Protein Calorie Malnutrition: Severe Is there a minimum of two crit: Yes CC Plasma Assessment Blood Product Administration S: [id number] RONALDO RAWLS Mar 18, 2025 10:37 MILADY ANDERSON MD Mar 18, 2025 11:10
[2025-03-18] MEDS: SOD CHL 0.45% 1,000 ML IV SCH (11:22)
--- NOTE | 2025-03-18 11:26 | DVH ---
BILATERAL UPPER EXTREMITY VENOUS DUPLEX REASON FOR EXAMINATION: Bilateral upper extremity pain and edema. COMPARISON: US RT UPPER DVT on DOS: 11/09/24, US RT UPPER DVT on DOS: 11/02/24, US BILAT LOW EXT ART DUPLEX on DOS: 10/13/24, US BI LAT UPPER DVT on DOS: 10/11/24 TECHNIQUE: Using real-time freeze-frame technique with a high-frequency transducer, multiple longitudinal and transverse sections were obtained. Simultaneous color flow and spectral Doppler imaging was performed. FINDINGS: RIGHT: Deep veins Internal jugular vein: Partially obscured by a bandage. Compressible. No thrombus identified. Expected Doppler flow. Subclavian vein: Obscured by bandages. Axillary vein: Compressible. No thrombus identified. Expected Doppler flow. Brachial vein: Compressible. No thrombus identified. Expected Doppler flow. Radial vein: Compressible. No thrombus identified. Expected Doppler flow. Ulnar vein: Compressible. No thrombus identified. Expected Doppler flow. Superficial veins Cephalic vein: Occlusive thrombus Basilic vein: Occlusive thrombus LEFT: Deep veins Internal jugular vein: Compressible. No thrombus identified. Expected Doppler flow. Subclavian vein: Expected Doppler flow. Axillary vein: Compressible. No thrombus identified. Expected Doppler flow. Brachial vein: Compressible. No thrombus identified. Expected Doppler flow. Radial vein: Compressible. No thrombus identified. Expected Doppler flow. Ulnar vein: Compressible. No thrombus identified. Expected Doppler flow. Superficial veins Cephalic vein: Occlusive thrombus Basilic vein: Occlusive thrombus IMPRESSION: No evidence of deep venous thrombosis. There is occlusive thrombus in bilateral cephalic and basilic veins. Correlate clinically for superficial thrombophlebitis. [employer] SORAYA
--- NOTE | 2025-03-18 13:06 | DVHPN2 ---
Progress Note Date Seen: Mar 18, 2025 Resident Creating Document: JHRICHARD PRATER RESIDENT Medical Necessity Reason Pt with a Central, PICC or Fol: Yes Subjective Review of Systems Patient seen and examined at bedside Currently on mechanical ventilation and is sedated, minimal ventilator settings with a PEEP of 5 and FiO2 30% Patient has been having brownish suction through the NG tube about 400 last night and about 150 mL in the day shift today No bowel movements in the flexi Seal since yesterday morning Objective vital signs Vital Sign Date Time Temp Pulse Resp B/P (MAP) Pulse Ox O2 Delivery O2 Flow Rate FiO2 03/18/25 12:03 130/74 03/18/25 12:00 20 100 Mechanical Ventilator+ 30 30 03/18/25 12:00 55 03/18/25 10:30 97.0 97.0 03/16/25 08:18 2 Total Intake and Output 03/17/25 03/17/25 03/18/25 15:00 23:00 07:00 Intake Total 1939.7 ml 1267.0 ml 1424.0 ml Output Total 350 ml 1025 ml Balance 1939.7 ml 917.0 ml 399.0 ml medications Current Medications Medications Dose Ordered Sig/Wally Route Start Time Stop Time Status Last Admin Dose Admin Ondansetron HCl 4 mg Q4HP PRN IV 03/12/25 00:00 Hydralazine HCl 10 mg Q6HP PRN IV 03/12/25 17:30 03/12/25 18:51 10 MG Lorazepam 1 mg Q8HP PRN IV 03/12/25 21:45 03/12/25 21:58 1 MG Ceftriaxone Sodium 50 ml @ 100 mls/hr DAILY@09 IV 03/13/25 09:00 03/18/25 09:30 100 MLS/HR Metronidazole 100 ml @ 100 mls/hr Q8HR IV 03/13/25 14:00 03/18/25 05:47 100 MLS/HR Midazolam HCl 100 ml @ 1 mls/hr Q24H IV 03/16/25 16:30 03/17/25 13:28 3 MLS/HR Fentanyl Citrate 250 ml @ 2.5 mls/hr Q24H IV 03/16/25 16:30 03/18/25 12:03 10 MLS/HR Diagnostic Test (Pha) 1 strip Q6HR 03/16/25 18:00 03/18/25 11:22 1 STRIP Insulin Human Regular FOLLOW SLIDING SCALE Q6HR SC 03/16/25 18:00 03/18/25 00:12 2 UNITS Dextrose 50 ml UD IV 03/16/25 17:15 Amino Acids 0 ml @ 0 mls/hr PER PHARMACY IV 03/16/25 17:15 Pantoprazole Sodium 50 ml @ 10 mls/hr Q5H IV 03/16/25 17:15 03/18/25 09:30 10 MLS/HR Folic Acid 1 mg/ Dextrose 50.2 ml @ 200.8 mls/ hr DAILY INJ 03/17/25 10:00 03/18/25 10:28 200.8 MLS/HR Thiamine HCl 100 mg DAILY IV 03/18/25 10:00 03/18/25 09:31 100 MG Potassium Acetate 20 meq/Potassium Phosphate 44 meq/ Calcium Gluconate 2.3 meq/ Multivitamins 10 ml/Chromium/ Copper/Manganese/ Zinc 1 ml/Amino Acids/Dextrose/ Purified Water 935.9462 ml @ 40 mls/hr [id number] IV 03/17/25 22:00 03/18/25 21:59 03/17/25 22:09 40 MLS/HR Atorvastatin Calcium 40 mg HS PO 03/17/25 22:00 Hold Potassium Acetate 20 meq/Potassium Phosphate 11 meq/ Calcium Gluconate 2.3 meq/ Multivitamins 10 ml/Chromium/ Copper/Manganese/ Zinc 1 ml/Amino Acids/Dextrose/ Purified Water 1,178.4462 ml @ 50 mls/hr [id number] IV 03/18/25 22:00 03/19/25 21:59 Sodium Chloride 1,000 ml @ 50 mls/hr Q20H IV 03/18/25 10:45 03/18/25 11:22 50 MLS/HR Examination Gen - mild conjunctival pallor, no scleral icterus Skin - Patients skin is warm and dry. HEENT - normocephalic, atraumatic, dry mucous membranes. Neck - supple, no lymphadenopathy Pulmonary - B/L equal air entry cardiovascular - regular S1,S2 heard GI - soft abdomen. Bowel sounds normoactive. Neurological - Patient is sedated and on mechanical ventilation laboratory and microbiology Laboratory Tests 03/18/25 04:27 Test 03/18/25 04:27 Range/Units Serum Glucose 165 H 74-106 mg/dL Microbiology Date/Time Source Procedure Growth Status 03/16/25 16:36 Nose MRSA Screen - Final Complete 03/16/25 16:06 Sputum Gram Stain - Final Resulted 03/16/25 16:06 Sputum Respiratory Culture - Preliminary Resulted 03/13/25 11:53 Stool Stool Culture - Final Complete 03/13/25 11:53 Stool Shiga Toxin I & II - Final Complete 03/12/25 11:55 Urine - [place]rios [place] Urine Culture - Final Complete 03/11/25 15:36 Blood Blood Culture - Final NO GROWTH AFTER 5 DAYS OF INCUBATION. Complete Problem List/Assessment/Plan Problem List/Assessment/Plan Assessment Upper GI bleeding likely from persistent duodenal ulcer Duodenal ulcer disease History of perforated duodenal ulcer s/p surgical repair Hiatal hernia Severe grade C linear erosive esophagitis with esophageal ulcers C. difficile colitis Elevated liver enzymes Severe anemia New multiple stroke in different arterial territories (MRI 03/18/25) Multiple chronic strokes Plan Continue on Protonix drip NG tube to LIS Monitor H&H, transfuse if HGB less than 7 IV metronidazole and ceftriaxone Hold off on anticoagulation and antiplatelet drugs because of likely active GI bleed Plan discussed with Dr. Stoddard Plan discussed with: Other (JASPER Bagley) Dietary Evaluation Review Recommendations by RD: Increase Calorie Intake, PPN/TPN Comments: Pt meets criteria 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 based on severe wt loss 35lb/24% in 5 month, intake <50% estimated requirement x 5 days, severe muscle wasting and fat depletion Nutrition Recommendation: 1) PPN/TPN if NPO continues 2) Advance to soft diet as medically feasible 3) Ensure Enlive 240ml TID if pt resumes PO diet 4) Monitor NPO status, lab values, weight trend, and I/O Expected Outcomes/Goals: Intake to meet >75% estimated needs GI symptoms to improve Fu 2-3 days Food and Nutrition Intake (Sev: <50% est energy req 5days Interpretation of weight loss: >10% in 6 months Body Fat Depletion (Severe): Mod to Severe Depletion Muscle Mass (Severe): Mod to Severe Depletion Protein Calorie Malnutrition: Severe Is there a minimum of two crit: Yes CC Plasma Assessment Blood Product Administration S: [id number] RICHARD TOSCANO RESIDENT Mar 18, 2025 13:06
[2025-03-18 14:51] LABS: Hemoglobin 8.6 g/dL (13.5-17.5)
[2025-03-18 14:54] LABS: Hematocrit 26.8 % (41.0-53.0)
--- NOTE | 2025-03-18 14:58 | DVHPNRES ---
Progress Note Date Seen: Mar 18, 2025 Resident Creating Document: SKY ADSH RESIDENT Medical Necessity Reason Pt with a Central, PICC or Fol: Yes Subjective Review of Systems Jossue Perez he is a 49-year-old male past medical history of hypertension, hyperlipidemia, DVT, 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 The patient mentions he had passage of stool 7 times yesterday which was tarry black in color. Patient mentions he also had abdominal pain, nausea and a few episodes of vomiting for the last 2 days. He denies any fever,weakness or weight loss. He reports history of perforated duodenal ulcer s/p exp lap with prolonged ICU stay complicated with sepsis from cholecystitis s/p tracheostomy and removal. On arrival to the hospital, his hemoglobin was 4.2 and he had to be transfused with 2 units of PRBCs. He was kept NPO and NG tube placed. GI was consulted and they recommended continuing with IV Protonix drip scheduled patient for EGD on 03/13/2025. Patient was seen and examined on the bedside. He is on mechanical ventilation with FiO2 30%, Tidal volume 450 mL, respiratory rate 20, peep 5. Last night NG suction is 400 mL which is bloody coffee-ground. Hemoglobin stable at 8.6. Spoke with nuclear medicine and mentioned nuclear medicine bleeding scan not possible now, as patient is intubated and on mechanical ventilation. Patient was having sinus bradycardia, heart rate was low to 42, came down the sedation and improved the heart rate to 60 The patient is on Versed , fentanyl and protonix drip. We are continuing TPN for nutrition. Objective vital signs Vital Sign Date Time Temp Pulse Resp B/P (MAP) Pulse Ox O2 Delivery O2 Flow Rate FiO2 03/18/25 14:45 63 20 115/66 (82) 98 03/18/25 14:00 Mechanical Ventilator+ 30 30 03/18/25 13:00 98.6 98.6 03/16/25 08:18 2 Total Intake and Output 03/17/25 03/17/25 03/18/25 15:00 23:00 07:00 Intake Total 1939.7 ml 1267.0 ml 1424.0 ml Output Total 350 ml 1025 ml Balance 1939.7 ml 917.0 ml 399.0 ml medications Current Medications Medications Dose Ordered Sig/Wally Route Start Time Stop Time Status Last Admin Dose Admin Ondansetron HCl 4 mg Q4HP PRN IV 03/12/25 00:00 Hydralazine HCl 10 mg Q6HP PRN IV 03/12/25 17:30 03/12/25 18:51 10 MG Lorazepam 1 mg Q8HP PRN IV 03/12/25 21:45 03/12/25 21:58 1 MG Ceftriaxone Sodium 50 ml @ 100 mls/hr DAILY@09 IV 03/13/25 09:00 03/18/25 09:30 100 MLS/HR Metronidazole 100 ml @ 100 mls/hr Q8HR IV 03/13/25 14:00 03/18/25 12:59 100 MLS/HR Midazolam HCl 100 ml @ 1 mls/hr Q24H IV 03/16/25 16:30 03/18/25 12:52 3 MLS/HR Fentanyl Citrate 250 ml @ 2.5 mls/hr Q24H IV 03/16/25 16:30 03/18/25 12:03 10 MLS/HR Diagnostic Test (Pha) 1 strip Q6HR 03/16/25 18:00 03/18/25 11:22 1 STRIP Insulin Human Regular FOLLOW SLIDING SCALE Q6HR SC 03/16/25 18:00 03/18/25 00:12 2 UNITS Dextrose 50 ml UD IV 03/16/25 17:15 Amino Acids 0 ml @ 0 mls/hr PER PHARMACY IV 03/16/25 17:15 Pantoprazole Sodium 50 ml @ 10 mls/hr Q5H IV 03/16/25 17:15 03/18/25 14:06 10 MLS/HR Folic Acid 1 mg/ Dextrose 50.2 ml @ 200.8 mls/ hr DAILY INJ 03/17/25 10:00 03/18/25 10:28 200.8 MLS/HR Thiamine HCl 100 mg DAILY IV 03/18/25 10:00 03/18/25 09:31 100 MG Potassium Acetate 20 meq/Potassium Phosphate 44 meq/ Calcium Gluconate 2.3 meq/ Multivitamins 10 ml/Chromium/ Copper/Manganese/ Zinc 1 ml/Amino Acids/Dextrose/ Purified Water 935.9462 ml @ 40 mls/hr [id number] IV 03/17/25 22:00 03/18/25 21:59 03/17/25 22:09 40 MLS/HR Atorvastatin Calcium 40 mg HS PO 03/17/25 22:00 Hold Potassium Acetate 20 meq/Potassium Phosphate 11 meq/ Calcium Gluconate 2.3 meq/ Multivitamins 10 ml/Chromium/ Copper/Manganese/ Zinc 1 ml/Amino Acids/Dextrose/ Purified Water 1,178.4462 ml @ 50 mls/hr [id number] IV 03/18/25 22:00 03/19/25 21:59 Sodium Chloride 1,000 ml @ 50 mls/hr Q20H IV 03/18/25 10:45 03/18/25 11:22 50 MLS/HR Examination Examination General: RASS -3, afebrile, mucosae are moist Cardiovascular: Normal S1 and S2. No murmurs, gallops or rubs Respiratory: Mechanically assisted ventilation, equal bilateral airway entree. Clear lung sounds on auscultation Abdomen: Soft, nontender, no organomegaly, normal bowel sounds MSK/skin: Mobilization of limbs cannot be evaluated. Skin is dry and warm. Neurological: Orientation cannot be assessed. No apparent motor no sensitive deficits. Pupils are isocoric and reactive laboratory and microbiology Laboratory Tests 03/18/25 04:27 Test 03/18/25 04:27 Range/Units Serum Glucose 165 H 74-106 mg/dL Microbiology Date/Time Source Procedure Growth Status 03/16/25 16:36 Nose MRSA Screen - Final Complete 03/16/25 16:06 Sputum Gram Stain - Final Resulted 03/16/25 16:06 Sputum Respiratory Culture - Preliminary Resulted 03/13/25 11:53 Stool Stool Culture - Final Complete 03/13/25 11:53 Stool Shiga Toxin I & II - Final Complete 03/12/25 11:55 Urine - [place] Urine Culture - Final Complete 03/11/25 15:36 Blood Blood Culture - Final NO GROWTH AFTER 5 DAYS OF INCUBATION. Complete Labs and/or images reviewed: Labs reviewed by me, Image(s) reviewed by me Problem List/Assessment/Plan Problem List/Assessment/Plan Assessment and plan : NEURO: Acute metabolic encephalopathy secondary to acute ischemic stroke Acute or subacute ischemic stroke RASS score: - 3 - CT head without contrast demonstrated new medial right parieto-occipital focal region of diminished parenchymal attenuation within the medial right parietal occipital lobes. This is concerning for an acute to subacute infarct with chronic multifocal lacunar infarct - MRI showed Infarcts involving multiple vascular territories involved medial right occipital lobe, posterior left occipital lobe, and left lopes radiata white matter tracts. Few additional tiny foci of diffusion restriction at the anterior right parietal cortex. - Neurology on board - hold aspirin and Plavix for now because of GI bleeding - Atorvastatin 40 mg at HS through GT tube CARDIOVASCULAR: Chronic diastolic heart failure with preserved ejection fraction - Echo on 11/12 demonstrated EF 65%, MILD LVH AND MILD LV DIASTOLIC DYSFUNCTION - elevated BNP - CxR showed Bilateral interstitial opacities, small left basilar consolidation and pleural effusion PULMONARY: Acute hypoxic respiratory failure S/P intubation GASTROINTESTINAL: Acute GI bleed upper vs lower Partial small Intestinal obstruction likely secondary to fecal impaction. Cholelithiasis C diff positive Transaminitis likely secondary to low hepatic perfusion -CT abdomen/pelvis showed low-grade distal partial obstruction due to fecal retention. - Gastrograffin study showed Contrast is identified within the colon by 3 hours. No evidence of bowel obstruction. -EGD on 03/13/25 showed 1-2 cm sliding-type hiatal hernia with severe grade C linear erosive esophagitis with esophageal ulcers extending into the distal 15 cm of the esophagus persistent duodenal bulb ulcer seen just inside the pyloric opening which was large coalescing with a visible sutures; there was no active bleeding or visible vessel but there was acute on chronic inflammation deformity of the postbulbar duodenal area and I was able to see the 2nd part of the duodenum but there was area of debris and ongoing chronic ulceration inflammation and the endoscope was not advanced beyond this area mild gastritis and some old coffee-ground within the stomach - NPO - NG with LIS - IV Protonix drip - Zofran 4 mg IV q.4 PRN - IV 0.45% N/S @ 50 ml/hr - IV ceftriaxone 1 gm daily and IV metronidazole 500 mg 8hrly. - GI and surgery are on the board - pending bleeding scan as patient is intubated and on mechanical ventilation - Monitor Hand H, transfuse if hemoglobin less than 7 GENITOURINARY: GIOVANI on CKD likely hemodynamically mediated/VMN - Nephrology on board - IV normal saline 500 mL bolus given yesterday METABOLIC: Hypernatremia Hypokalemia Hypophosphatemia - replaced potassium and phosphate - monitor BMP HEME: Severe microcytic hypochromic anemia due to GI bleeding Iron deficiency due to above - Patient received 4 units of PRBC - Monitor H&H INFECTIOUS DISEASE: Acute C diff infection - hold po vanc because of upper GI bleeding DIET: TPN DVT prophylax: Hold due to GI bleeding GI prophylaxis: Protonix drip Bowel regimen: Code status: Full code LINES/DRAINS/ACCESS: ETT: Intubated on 03/16/2025 IV access: Right IJ placed on 03/16/2025 Drips: Fentanyl, Versed, Protonix drip Barrios catheter: DISPOSITION: ICU Patient's status discussed with RN, Critical care time spent more than 82 minutes, including patient care, chart review, and updating the family. Excluding any procedures. Case discussed with Dr. Grant Plan discussed with: Other (RN) My Orders My Orders Orders - SKY DASH RESIDENT Procedure Category Date Status Time Chest Portable XY 03/18/25 Resulted 04:00 Hemoglobin & LAB 03/18/25 In Process Hematocrit 14:00 Hemoglobin & LAB 03/18/25 Logged Hematocrit 22:00 Hemoglobin & LAB 03/19/25 Verified Hematocrit 06:00 Hemoglobin & LAB 03/19/25 Verified Hematocrit 14:00 Hemoglobin & LAB 03/19/25 Verified Hematocrit 22:00 Abg W/ Co-Ox RT 03/18/25 Logged 05:22 Amino Acid PHA 03/18/25 In Process Infusion... 22:00 Comprehensive LAB 03/19/25 Verified Metabolic Panel 04:00 Magnesium LAB 03/19/25 Verified 04:00 Phosphorus LAB 03/19/25 Verified 04:00 Tpn Per Pharmacy CINTHIA 03/18/25 In Process 22:00 Electrocardigram EKG 03/18/25 Logged 09:20 Comprehensive LAB 03/18/25 In Process Hepatitis Panel 10:25 Dietary Evaluation Review Recommendations by RD: Increase Calorie Intake, PPN/TPN Comments: Pt meets criteria 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 based on severe wt loss 35lb/24% in 5 month, intake <50% estimated requirement x 5 days, severe muscle wasting and fat depletion Nutrition Recommendation: 1) PPN/TPN if NPO continues 2) Advance to soft diet as medically feasible 3) Ensure Enlive 240ml TID if pt resumes PO diet 4) Monitor NPO status, lab values, weight trend, and I/O Expected Outcomes/Goals: Intake to meet >75% estimated needs GI symptoms to improve Fu 2-3 days Food and Nutrition Intake (Sev: <50% est energy req 5days Interpretation of weight loss: >10% in 6 months Body Fat Depletion (Severe): Mod to Severe Depletion Muscle Mass (Severe): Mod to Severe Depletion Protein Calorie Malnutrition: Severe Is there a minimum of two crit: Yes CC Plasma Assessment Blood Product Administration S: [id number] Date of Service: Mar 18, 2025 Billing Provider: HOLLAND GRANT MD Common Visit Codes: [id number] INP/OBS CARE(HIGH) SKY DASH RESIDENT Mar 18, 2025 14:58 HOLLAND GRANT MD Mar 18, 2025 21:41
[2025-03-18 16:29] LABS: Hepatitis A Total Antibody Negative (Negative); Hepatitis B Surface Antigen Negative (Negative); Hepatitis C Antibody Negative (Negative)
[2025-03-18] MEDS: TPN PER PHARMACY IV NR (21:35)
[2025-03-18 23:06] LABS: Hematocrit 27.0 % (41.0-53.0); Hemoglobin 8.9 g/dL (13.5-17.5)
--- NOTE | 2025-03-18 23:27 | DVHEEG2 ---
Neurology EEG Procedural Note Procedural Note EXAM DATE: 03/17/2025 REFERRING DOCTOR: Dr. Sosa TECHNIQUE: Eighteen channels of EEG, 2 channels of EOG, and 1 channel of EKG were recorded using the International 10/20 system. CLINICAL DATA: The patient was referred for an EEG evaluation for the evidence of seizure disorder. MEDICATIONS: See the chart BACKGROUND ACTIVITY: The record showed diffuse low amplitude theta activity over both hemispheres that was reactive to external stimuli. ACTIVATION: Hyperventilation: Not done Photic Stimulation: Not done Sleep: Nonresponsiveness IMPRESSION: This is a mildly abnormal EEG, this EEG is seen in mild cerebral dysfunction due to metabolic/hypoxic encephalopathy or medication effects, please correlate clinically The EKG channel showed a regular heart rate of 60/min. [place] [address] LEANDRO SOSA MD Mar 18, 2025 23:27
[2025-03-19] VITALS (108 sets, daily range): BP systolic 117–159; BP diastolic 62–96; PULSE 52–100; RESP 18–100; TEMP 98.9–99.3; O2SAT 97–100
--- NOTE | 2025-03-19 04:39 | DVH ---
CHEST RADIOGRAPH Indication: on mechanical ventilation Technique: 1 view Comparison: XY CHEST PORTABLE on DOS: 03/18/25, XY CHEST PORTABLE on DOS: 03/17/25, XY CHEST PORTABLE on DOS: 03/16/25, XY CHEST PORTABLE on DOS: 03/16/25, XY CHEST PORTABLE on DOS: 03/15/25 FINDINGS: Lines and Tubes: Unchanged. Lungs/Pleura: Unchanged. Cardiomediastinum: Unchanged. Other: Unchanged osseous structures. IMPRESSION: No significant change from the prior day. Stable support devices. Mild interstitial opacities and sm all left pleural effusion.
[2025-03-19 05:08] LABS: Anion Gap 11 (5-15); Bilirubin, Total 0.6 mg/dL (0.2-1.0); Carbon Dioxide 26 mmol/L (20-31); Chloride 105 mmol/L (98-107); Magnesium 1.8 mg/dL (1.6-2.6); Potassium 3.9 mmol/L (3.5-5.1); Sodium 142 mmol/L (136-145)
[2025-03-19 05:18] LABS: Alanine Aminotransferase 391 U/L (7-40); Albumin 2.2 g/dL (3.2-4.8); Alkaline Phosphatase 185 U/L (46-116); BUN/Creatinine Ratio 35.0 (10.0-20.0); Blood Urea Nitrogen 49 mg/dL (9-23); Calcium 7.2 mg/dL (8.7-10.4); Glucose 110 mg/dL (74-106); Total Protein 4.6 g/dL (5.7-8.2)
[2025-03-19 06:29] LABS: Hematocrit 26.4 % (41.0-53.0); Hemoglobin 8.8 g/dL (13.5-17.5)
--- NOTE | 2025-03-19 07:27 | ECG ---
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
[2025-03-19 08:35] LABS: Base Excess -0.7 mmol/L (-2.0-3.0)
[2025-03-19] MEDS: MAGNESIUM SULFATE 1GM/100ML 100 ML IV ONE (09:31)
[2025-03-19 11:10] LABS: Nucleated Red Blood Cells % 0.2 %
[2025-03-19 11:11] LABS: Hematocrit 26.2 % (41.0-53.0); Hemoglobin 8.6 g/dL (13.5-17.5); Mean Corpuscular Hemoglobin 27.6 pg (28.0-32.0); Mean Corpuscular Volume 84.4 fL (80.0-100.0)
[2025-03-19] MEDS: POTASSIUM CHL 20MEQ/100ML 100 ML IV ONE (16:55)
[2025-03-19 18:02] LABS: Hematocrit 27.0 % (41.0-53.0); Hemoglobin 8.7 g/dL (13.5-17.5)
[2025-03-19 22:17] LABS: Hematocrit 26.2 % (41.0-53.0); Hemoglobin 8.5 g/dL (13.5-17.5)
[2025-03-20] VITALS (105 sets, daily range): BP systolic 107–183; BP diastolic 60–102; PULSE 56–114; RESP 15–22; TEMP 97.9–99.1; O2SAT 98–100
[2025-03-20 03:36] LABS: Hematocrit 27.1 % (41.0-53.0); Hemoglobin 8.9 g/dL (13.5-17.5); Mean Corpuscular Hemoglobin 27.3 pg (28.0-32.0); Mean Corpuscular Volume 83.4 fL (80.0-100.0); Nucleated Red Blood Cells % 0.0 %
[2025-03-20 03:52] LABS: Anion Gap 9 (5-15); BUN/Creatinine Ratio 30.6 (10.0-20.0); Bilirubin, Total 0.6 mg/dL (0.2-1.0); Carbon Dioxide 26 mmol/L (20-31); Chloride 106 mmol/L (98-107); Magnesium 1.8 mg/dL (1.6-2.6); Potassium 3.9 mmol/L (3.5-5.1); Sodium 141 mmol/L (136-145)
[2025-03-20 03:59] LABS: Alanine Aminotransferase 338 U/L (7-40); Albumin 2.4 g/dL (3.2-4.8); Alkaline Phosphatase 158 U/L (46-116); Blood Urea Nitrogen 44 mg/dL (9-23); Calcium 7.6 mg/dL (8.7-10.4); Glucose 120 mg/dL (74-106); Total Protein 5.2 g/dL (5.7-8.2)
--- NOTE | 2025-03-20 04:52 | DVH ---
CHEST RADIOGRAPH Indication: Mechanical ventilation Technique: Single frontal view of the chest was obtained Comparison: XY CHEST PORTABLE on DOS: 03/19/25, XY CHEST PORTABLE on DOS: 03/18/25, XY CHEST PORTABLE on DOS: 03/17/25 FINDINGS: Lines and Tubes: The endotracheal tube terminates 1.9 cm above the dunia. There is a right central venous catheter with its tip terminating in the superior vena cava. The enteric tube courses below th e left hemidiaphragm and the tip extends outside the field of view. Lungs: Bilateral increased interstitial opacities similar to prior study. No focal consolidation. Pleura: Left pleural effusion. No pneumothorax. Cardiomediastinal contours: Unremarkable Bones: No acute osseous abnormality. IMPRESSION: 1. Support tubes in appropriate position. 2. Left pleural effusion, stable. 3. Bilateral increased interstitial opacities similar to prior study.
[2025-03-20 06:24] LABS: Base Excess -2.1 mmol/L (-2.0-3.0)
[2025-03-20] MEDS: MAGNESIUM SULFATE 1GM/100ML 100 ML IV ONE (07:59)
--- NOTE | 2025-03-20 11:06 | DVHPN2 ---
Progress Note - Dictate Date Seen: Mar 19, 2025 Medical Necessity Reason Pt with a Central, PICC or Fol: Yes Subjective Mr. Perez is a 49 years old right-handed gentleman with a history of hypertension, dyslipidemia, multiple strokes, DVT, he was brought to the [facility] on 03/11/2025 with a chief complaint of diarrhea, history is obtained from his , the chart review I saw him on 08/23/2023 for TIA, 10/27/2024 for encephalopathy I have seen and examined the patient, I have talked to his nurse, he is intubated, awake, follows verbal commands. He does not move the right arm Versed 2 mg/hour, fentanyl 75 mcg/hour Stool occult blood, 03/13/2025: Positive UDS, 03/12/2025: Negative Plasma alcohol, 03/12/2025: <3 Urinalysis, 03/12/2025: WBC: One, urine leukocyte esterase: Negative ABG, 03/16/25: Hypoxia, respiratory acidosis WBC/Hb/PLT'/MCV, 03/16/25: 10.l 6/7.9/339/82.4 Na, 03/11/2025: 129, 03/12/2025: 130, 129, 03/15/25: 145, 03/16/25: 142 BUNs/CR, 08/22/2023: 15/1.45, 03/11/2025: 55/1.77, 03/13/2025: 43/1.58, 02/2725: 65/2.56 GFR, 08/22/2023: 59 TBI/AST/ALT/AP,: 0.8/269/450/398 TG/CHO L/LDL/HDL, 08/2023: 136/166/111/39 Vitamin B12, 03/12/25: 852 Folic acid, 03/12/2025: 12.28 TSH, 08/23/2023: 4.25 Extremity venous study, right arm, 11/09/2024: Thrombus is seen in the cephalic vein in the forearm. DONAL, 08/23/2023: 1. No evidence of intracardiac source of embolus in the study conducted today. 2. Normal valves without significant masses or change vegetations were discernible. 3. No evidence of intra-atrial shunting by bubble study and color Doppler. 4. Mild atherosclerotic plaquing was visualized in the arch of the aorta without evidence of dissection in the visualized part EGD, 03/13/2025: 1. 1-2 cm sliding-type hiatal hernia with severe grade C linear erosive esophagitis with esophageal ulcers extending into the distal 15 cm of the esophagus 2. Patient had a persistent duodenal bulb ulcer seen just inside the pyloric opening which was large coalescing with a visible sutures; there was no active bleeding or visible vessel but there was acute on chronic inflammation 3. Patient had deformity of the postbulbar duodenal area and I was able to see the 2nd part of the duodenum but there was area of debris and ongoing chronic ulceration inflammation and the endoscope was not advanced beyond this area 3. Patient had mild gastritis and some old coffee-ground within the stomach Chest x-ray, 03/12/2025: Mild chronic appearing left basilar pulmonary airspace disease and possible small pleural effusion Chest x-ray, 03/13/2025: 1. Enteric tube terminates in the stomach. 2. Worsening bilateral interstitial and alveolar opacities. Chest x-ray, : Endotracheal tube and right IJ approach central venous catheters are in satisfactory position. Trace fkit-swifury-epai-right pleural effusions with right retro lower lung zone linear atelectasis/ fluid within the fissure. CT head, 10/24/2024: 1. No intracranial hemorrhage or mass effect. 2. Japx-kf-rpijjixm chronic microvascular ischemic changes. 3. Old bilateral basal ganglia lacunar infarcts. 4. Small bilateral mastoid effusions. CT head, 03/17/2025: 1. New medial right parieto-occipital focal region of diminished parenchymal attenuation within the medial right parietal occipital lobes. This is concerning for an acute to subacute infarct. Recommend further evaluation with MRI. 2. No evidence of acute intracranial hemorrhage, mass effect or hydrocephalus. 3. Chronic sequelae of microangiopathy and atrophic cortical volume loss.4. Multifocal chronic lacunar infarcts as outlined above. CT abdomen/pelvis, 10/04/2024: 1. Extensive intra-abdominal free air concerning for perforated viscus. Surgical consultation is recommended. 2. Enteritis is seen in multiple loops of small bowel in the left hemiabdomen. 3. Moderate abdominopelvic ascites. 4. Small right pleural effusion. CTA neck, head, 08/22/2023:1. CTA head demonstrates no evidence of large vessel occlusion, aneurysm, or significant stenosis. 2. CTA neck demonstrates no evidence of carotid or vertebral dissection or significant stenosis. 3. No noncontrast CT head was performed. 4. Additional findings as detailed above MRI head, 08/23/2023: No acute infarct, intracranial hemorrhage, mass effect, or hydrocephalus. Moderate periventricular and deep subcortical white matter T2 hyperintensities which are nonspecific, but most likely related to sequela of chronic microvascular ischemic changes (I have reviewed the MRI films with our in-house radiologist, Dr. Sosa, the patient had bilateral multiple subacute/chronic infarcts) MRI head, 11/01/2024: No acute cerebrovascular ischemia. [id number]-[id number] chronic microvascular ischemic changes. Bilateral mastoid effusions. Old bilateral basal ganglia / lopes radiata infarcts. MR head, 03/16/2025: Infarcts involving multiple vascular territories as described. vital signs Vital Sign Date Time Temp Pulse Resp B/P (MAP) Pulse Ox O2 Delivery O2 Flow Rate FiO2 03/19/25 09:36 72 20 142/83 (102) 100 30 03/19/25 06:00 Mechanical Ventilator+ 03/19/25 04:00 98.9 98.9 Total Intake and Output 03/18/25 03/18/25 03/19/25 15:00 23:00 07:00 Intake Total 1119.2 ml 1018 ml 955 ml Output Total 625 ml 1000 ml Balance 1119.2 ml 393 ml -45 ml medications Current Medications Medications Dose Ordered Sig/Wally Route Start Time Stop Time Status Last Admin Dose Admin Ondansetron HCl 4 mg Q4HP PRN IV 03/12/25 00:00 Hydralazine HCl 10 mg Q6HP PRN IV 03/12/25 17:30 03/12/25 18:51 10 MG Lorazepam 1 mg Q8HP PRN IV 03/12/25 21:45 03/12/25 21:58 1 MG Ceftriaxone Sodium 50 ml @ 100 mls/hr DAILY@09 IV 03/13/25 09:00 03/19/25 09:59 100 MLS/HR Metronidazole 100 ml @ 100 mls/hr Q8HR IV 03/13/25 14:00 03/19/25 05:32 100 MLS/HR Midazolam HCl 100 ml @ 1 mls/hr Q24H IV 03/16/25 16:30 03/18/25 12:52 3 MLS/HR Fentanyl Citrate 250 ml @ 2.5 mls/hr Q24H IV 03/16/25 16:30 03/18/25 12:03 10 MLS/HR Diagnostic Test (Pha) 1 strip Q6HR 03/16/25 18:00 03/19/25 05:32 1 STRIP Insulin Human Regular FOLLOW SLIDING SCALE Q6HR SC 03/16/25 18:00 03/18/25 00:12 2 UNITS Dextrose 50 ml UD IV 03/16/25 17:15 Amino Acids 0 ml @ 0 mls/hr PER PHARMACY IV 03/16/25 17:15 Pantoprazole Sodium 50 ml @ 10 mls/hr Q5H IV 03/16/25 17:15 03/19/25 09:30 10 MLS/HR Folic Acid 1 mg/ Dextrose 50.2 ml @ 200.8 mls/ hr DAILY INJ 03/17/25 10:00 03/19/25 09:30 200.8 MLS/HR Thiamine HCl 100 mg DAILY IV 03/18/25 10:00 03/19/25 09:30 100 MG Atorvastatin Calcium 40 mg HS PO 03/17/25 22:00 Hold Potassium Acetate 20 meq/Potassium Phosphate 11 meq/ Calcium Gluconate 2.3 meq/ Multivitamins 10 ml/Chromium/ Copper/Manganese/ Zinc 1 ml/Amino Acids/Dextrose/ Purified Water 1,178.4462 ml @ 50 mls/hr [id number] IV 03/18/25 22:00 03/19/25 21:59 03/18/25 21:35 50 MLS/HR Sodium Chloride 1,000 ml @ 50 mls/hr Q20H IV 03/18/25 10:45 03/19/25 09:39 50 MLS/HR objective The patient is well-nourished and well-developed with no distress. The patient is intubated MENTAL STATUS: Subjective CRANIAL NERVES: Pupils are equal, round and nonreactive, pinpoint. There are corneal reflexes and doll's eyes phenomenon. No signs of facial weakness. There are gagging or coughing reflexes SENSATION: responses to pain stimuli. MOTOR: Normal tone in the upper and lower extremity. Normal muscle bulk. No fasciculations. Moves the left but not right arm, left leg is weaker than the left REFLEXES: Deep tendon reflexes are symmetrical. No pathological reflexes. CEREBELLAR/COORDINATION: Deferred GAIT/STATION: deferred. laboratory and microbiology Laboratory Tests 03/19/25 05:32 03/19/25 04:00 03/18/25 04:27 Test 03/19/25 04:00 Range/Units Serum Glucose 110 H 74-106 mg/dL Problem List Altered mental status Metabolic encephalopathy secondary to sepsis, septic shock, hypernatremia Hypoxic encephalopathy Peptic ulcer, GI bleeding, anemia Respiratory failure New multiple stroke in different arterial territories (MRI 03/18/25) Multiple chronic strokes Maybe secondary to history methamphetamine, cocaine, alcohol use History of alcohol abuse History of cocaine, methamphetamine abuse Improving Assessment/Plan Monitoring Supportive treatment ICU care Stabilize vitals Respiratory support/vent management Follow-up labs IV antibiotics Aspirin 81 mg daily later Lipitor 20 mg daily GI service on case Nephrology service on case More recommended per clinical course This medical document was created using an electronic medical record system with Gradeable dictation system. Although this document has been carefully reviewed, there may still be some phonetic and typographical errors. These areas are purely typographical due to imperfect Prognosis guarded Dietary Evaluation Review Recommendations by RD: Increase Calorie Intake, PPN/TPN Comments: Pt meets criteria 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 based on severe wt loss 35lb/24% in 5 month, intake <50% estimated requirement x 5 days, severe muscle wasting and fat depletion Nutrition Recommendation: 1) PPN/TPN if NPO continues 2) Advance to soft diet as medically feasible 3) Ensure Enlive 240ml TID if pt resumes PO diet 4) Monitor NPO status, lab values, weight trend, and I/O Expected Outcomes/Goals: Intake to meet >75% estimated needs GI symptoms to improve Fu 2-3 days Food and Nutrition Intake (Sev: <50% est energy req 5days Interpretation of weight loss: >10% in 6 months Body Fat Depletion (Severe): Mod to Severe Depletion Muscle Mass (Severe): Mod to Severe Depletion Protein Calorie Malnutrition: Severe Is there a minimum of two crit: Yes Plan discussed with: Other Critical Care Time(min): 30 CC Plasma Assessment Blood Product Administration S: [id number] LEANDRO SOSA MD Mar 19, 2025 10:12
--- NOTE | 2025-03-20 11:07 | DVHPNRES ---
Progress Note Date Seen: Mar 19, 2025 Resident Creating Document: SKY DASH RESIDENT Medical Necessity Reason Pt with a Central, PICC or Fol: Yes Subjective Review of Systems Jossue Perez he is a 49-year-old male past medical history of hypertension, hyperlipidemia, DVT, 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 The patient mentions he had passage of stool 7 times yesterday which was tarry black in color. Patient mentions he also had abdominal pain, nausea and a few episodes of vomiting for the last 2 days. He denies any fever,weakness or weight loss. He reports history of perforated duodenal ulcer s/p exp lap with prolonged ICU stay complicated with sepsis from cholecystitis s/p tracheostomy and removal. On arrival to the hospital, his hemoglobin was 4.2 and he had to be transfused with 2 units of PRBCs. He was kept NPO and NG tube placed. GI was consulted and they recommended continuing with IV Protonix drip scheduled patient for EGD on 03/13/2025. Patient was seen and examined on the bedside. He is on mechanical ventilation with FiO2 30%, Tidal volume 450 mL, respiratory rate 20, peep 5. 24 hours NG suction 250 mL which is bloody coffee-ground. Hemoglobin stable at 8.8. The patient is on Versed 2 , fentanyl 75 and protonix drip. We are continuing TPN for nutrition. Objective vital signs Vital Sign Date Time Temp Pulse Resp B/P (MAP) Pulse Ox O2 Delivery O2 Flow Rate FiO2 03/19/25 09:36 72 20 142/83 (102) 100 30 03/19/25 08:00 Mechanical Ventilator+ 03/19/25 04:00 98.9 98.9 Total Intake and Output 03/18/25 03/18/25 03/19/25 15:00 23:00 07:00 Intake Total 1119.2 ml 1018 ml 955 ml Output Total 625 ml 1000 ml Balance 1119.2 ml 393 ml -45 ml medications Current Medications Medications Dose Ordered Sig/Wally Route Start Time Stop Time Status Last Admin Dose Admin Ondansetron HCl 4 mg Q4HP PRN IV 03/12/25 00:00 Hydralazine HCl 10 mg Q6HP PRN IV 03/12/25 17:30 03/12/25 18:51 10 MG Lorazepam 1 mg Q8HP PRN IV 03/12/25 21:45 03/12/25 21:58 1 MG Ceftriaxone Sodium 50 ml @ 100 mls/hr DAILY@09 IV 03/13/25 09:00 03/19/25 09:59 100 MLS/HR Metronidazole 100 ml @ 100 mls/hr Q8HR IV 03/13/25 14:00 03/19/25 05:32 100 MLS/HR Midazolam HCl 100 ml @ 1 mls/hr Q24H IV 03/16/25 16:30 03/18/25 12:52 3 MLS/HR Fentanyl Citrate 250 ml @ 2.5 mls/hr Q24H IV 03/16/25 16:30 03/18/25 12:03 10 MLS/HR Diagnostic Test (Pha) 1 strip Q6HR 03/16/25 18:00 03/19/25 05:32 1 STRIP Insulin Human Regular FOLLOW SLIDING SCALE Q6HR SC 03/16/25 18:00 03/18/25 00:12 2 UNITS Dextrose 50 ml UD IV 03/16/25 17:15 Amino Acids 0 ml @ 0 mls/hr PER PHARMACY IV 03/16/25 17:15 Pantoprazole Sodium 50 ml @ 10 mls/hr Q5H IV 03/16/25 17:15 03/19/25 09:30 10 MLS/HR Folic Acid 1 mg/ Dextrose 50.2 ml @ 200.8 mls/ hr DAILY INJ 03/17/25 10:00 03/19/25 09:30 200.8 MLS/HR Thiamine HCl 100 mg DAILY IV 03/18/25 10:00 03/19/25 09:30 100 MG Atorvastatin Calcium 40 mg HS PO 03/17/25 22:00 Hold Potassium Acetate 20 meq/Potassium Phosphate 11 meq/ Calcium Gluconate 2.3 meq/ Multivitamins 10 ml/Chromium/ Copper/Manganese/ Zinc 1 ml/Amino Acids/Dextrose/ Purified Water 1,178.4462 ml @ 50 mls/hr [id number] IV 03/18/25 22:00 03/19/25 21:59 03/18/25 21:35 50 MLS/HR Sodium Chloride 1,000 ml @ 50 mls/hr Q20H IV 03/18/25 10:45 03/19/25 09:39 50 MLS/HR Examination Examination General: RASS -1, afebrile, mucosae are moist Cardiovascular: Normal S1 and S2. No murmurs, gallops or rubs Respiratory: Mechanically assisted ventilation, equal bilateral airway entree. Clear lung sounds on auscultation Abdomen: Soft, nontender, no organomegaly, normal bowel sounds MSK/skin: Mobilization of limbs cannot be evaluated. Skin is dry and warm. Neurological: Orientation cannot be assessed. No apparent motor no sensitive deficits. Pupils are isocoric and reactive laboratory and microbiology Laboratory Tests 03/19/25 05:32 03/19/25 04:00 03/18/25 04:27 Test 03/19/25 04:00 Range/Units Serum Glucose 110 H 74-106 mg/dL Microbiology Date/Time Source Procedure Growth Status 03/16/25 16:36 Nose MRSA Screen - Final Complete 03/16/25 16:06 Sputum Gram Stain - Final Resulted 03/16/25 16:06 Sputum Respiratory Culture - Preliminary Resulted 03/13/25 11:53 Stool Stool Culture - Final Complete 03/13/25 11:53 Stool Shiga Toxin I & II - Final Complete 03/12/25 11:55 Urine - [place] Urine Culture - Final Complete 03/11/25 15:36 Blood Blood Culture - Final NO GROWTH AFTER 5 DAYS OF INCUBATION. Complete Labs and/or images reviewed: Labs reviewed by me, Image(s) reviewed by me Problem List/Assessment/Plan Problem List/Assessment/Plan Assessment and plan : NEURO: Acute metabolic encephalopathy secondary to acute ischemic stroke Acute or subacute ischemic stroke RASS score: - 1 - CT head without contrast demonstrated new medial right parieto-occipital focal region of diminished parenchymal attenuation within the medial right parietal occipital lobes. This is concerning for an acute to subacute infarct with chronic multifocal lacunar infarct - MRI showed Infarcts involving multiple vascular territories involved medial right occipital lobe, posterior left occipital lobe, and left lopes radiata white matter tracts. Few additional tiny foci of diffusion restriction at the anterior right parietal cortex. - Neurology on board - hold aspirin and Plavix for now because of GI bleeding - hold atorvastatin as patient is NPO CARDIOVASCULAR: Chronic diastolic heart failure with preserved ejection fraction - Echo on 11/12 demonstrated EF 65%, MILD LVH AND MILD LV DIASTOLIC DYSFUNCTION - elevated BNP - CxR showed Bilateral interstitial opacities, small left basilar consolidation and pleural effusion PULMONARY: Acute hypoxic respiratory failure S/P intubation GASTROINTESTINAL: Acute GI bleed upper vs lower Partial small Intestinal obstruction likely secondary to fecal impaction. Cholelithiasis C diff positive Transaminitis likely secondary to low hepatic perfusion -CT abdomen/pelvis showed low-grade distal partial obstruction due to fecal retention. - Gastrograffin study showed Contrast is identified within the colon by 3 hours. No evidence of bowel obstruction. -EGD on 03/13/25 showed 1-2 cm sliding-type hiatal hernia with severe grade C linear erosive esophagitis with esophageal ulcers extending into the distal 15 cm of the esophagus persistent duodenal bulb ulcer seen just inside the pyloric opening which was large coalescing with a visible sutures; there was no active bleeding or visible vessel but there was acute on chronic inflammation deformity of the postbulbar duodenal area and I was able to see the 2nd part of the duodenum but there was area of debris and ongoing chronic ulceration inflammation and the endoscope was not advanced beyond this area mild gastritis and some old coffee-ground within the stomach - NPO - NG with LIS - IV Protonix drip - Zofran 4 mg IV q.4 PRN - IV 0.45% N/S @ 50 ml/hr - IV ceftriaxone 1 gm daily and IV metronidazole 500 mg 8hrly. - GI and surgery are on the board - pending bleeding scan as patient is intubated and on mechanical ventilation - Monitor Hand H, transfuse if hemoglobin less than 7 GENITOURINARY: GIOVANI on CKD likely hemodynamically mediated/VMN - Nephrology on board - IV normal saline 500 mL bolus given yesterday METABOLIC: Hypernatremia Hypokalemia Hypophosphatemia - replaced potassium and phosphate - monitor BMP HEME: Severe microcytic hypochromic anemia due to GI bleeding Iron deficiency due to above - Patient received 4 units of PRBC - Monitor H&H INFECTIOUS DISEASE: Acute C diff infection - hold po vanc because of upper GI bleeding DIET: TPN DVT prophylax: Hold due to GI bleeding GI prophylaxis: Protonix drip Bowel regimen: Code status: Full code LINES/DRAINS/ACCESS: ETT: Intubated on 03/16/2025 IV access: Right IJ placed on 03/16/2025 Drips: Fentanyl, Versed, Protonix drip Barrios catheter: DISPOSITION: ICU Patient's status discussed with RN, Critical care time spent more than 72 minutes, including patient care, chart review, and updating the family. Excluding any procedures. Case discussed with Dr. Grant Plan discussed with: Spouse, Other (RN) My Orders My Orders Orders - SKY DASH RESIDENT Procedure Category Date Status Time Chest Portable XY 03/19/25 Resulted 04:00 Abg W/ Co-Ox RT 03/19/25 Logged 04:00 Complete Blood Count LAB 03/19/25 Logged 08:25 Dietary Evaluation Review Recommendations by RD: Increase Calorie Intake, PPN/TPN Comments: Pt meets criteria 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 based on severe wt loss 35lb/24% in 5 month, intake <50% estimated requirement x 5 days, severe muscle wasting and fat depletion Nutrition Recommendation: 1) PPN/TPN if NPO continues 2) Advance to soft diet as medically feasible 3) Ensure Enlive 240ml TID if pt resumes PO diet 4) Monitor NPO status, lab values, weight trend, and I/O Expected Outcomes/Goals: Intake to meet >75% estimated needs GI symptoms to improve Fu 2-3 days Food and Nutrition Intake (Sev: <50% est energy req 5days Interpretation of weight loss: >10% in 6 months Body Fat Depletion (Severe): Mod to Severe Depletion Muscle Mass (Severe): Mod to Severe Depletion Protein Calorie Malnutrition: Severe Is there a minimum of two crit: Yes CC Plasma Assessment Blood Product Administration S: [id number] Date of Service: Mar 19, 2025 Billing Provider: HOLLAND GRANT MD Common Visit Codes: [id number] INP/OBS CARE(HIGH) SKY DASH RESIDENT Mar 19, 2025 10:34 HOLLAND GRANT MD Mar 19, 2025 22:45
--- NOTE | 2025-03-20 11:11 | DVHPN2 ---
Progress Note Date Seen: Mar 19, 2025 Resident Creating Document: RICHARD TOSCANO RESIDENT Medical Necessity Reason Pt with a Central, PICC or Fol: Yes Subjective Review of Systems Patient seen and examined at the bedside , sedated and on mechanical ventilation NG tube with reddish-brown suction about 150 mL during the day shift until the afternoon, 100 mL overnight. Last bowel movement was reported 2 days ago H&H stable yesterday 8.8 and today 8.6 Objective vital signs Vital Sign Date Time Temp Pulse Resp B/P (MAP) Pulse Ox O2 Delivery O2 Flow Rate FiO2 03/19/25 12:14 132/76 03/19/25 11:49 65 20 100 30 03/19/25 10:00 Mechanical Ventilator+ 03/19/25 08:00 98.9 98.9 Total Intake and Output 03/18/25 03/18/25 03/19/25 15:00 23:00 07:00 Intake Total 1119.2 ml 1018 ml 1074.5 ml Output Total 625 ml 1000 ml Balance 1119.2 ml 393 ml 74.5 ml medications Current Medications Medications Dose Ordered Sig/Wally Route Start Time Stop Time Status Last Admin Dose Admin Ondansetron HCl 4 mg Q4HP PRN IV 03/12/25 00:00 Hydralazine HCl 10 mg Q6HP PRN IV 03/12/25 17:30 03/12/25 18:51 10 MG Lorazepam 1 mg Q8HP PRN IV 03/12/25 21:45 03/12/25 21:58 1 MG Ceftriaxone Sodium 50 ml @ 100 mls/hr DAILY@09 IV 03/13/25 09:00 03/19/25 09:59 100 MLS/HR Metronidazole 100 ml @ 100 mls/hr Q8HR IV 03/13/25 14:00 03/19/25 05:32 100 MLS/HR Midazolam HCl 100 ml @ 1 mls/hr Q24H IV 03/16/25 16:30 03/18/25 12:52 3 MLS/HR Fentanyl Citrate 250 ml @ 2.5 mls/hr Q24H IV 03/16/25 16:30 03/19/25 12:14 7.5 MLS/HR Diagnostic Test (Pha) 1 strip Q6HR 03/16/25 18:00 03/19/25 12:14 1 STRIP Insulin Human Regular FOLLOW SLIDING SCALE Q6HR SC 03/16/25 18:00 03/18/25 00:12 2 UNITS Dextrose 50 ml UD IV 03/16/25 17:15 Amino Acids 0 ml @ 0 mls/hr PER PHARMACY IV 03/16/25 17:15 Pantoprazole Sodium 50 ml @ 10 mls/hr Q5H IV 03/16/25 17:15 03/19/25 09:30 10 MLS/HR Folic Acid 1 mg/ Dextrose 50.2 ml @ 200.8 mls/ hr DAILY INJ 03/17/25 10:00 03/19/25 09:30 200.8 MLS/HR Thiamine HCl 100 mg DAILY IV 03/18/25 10:00 03/19/25 09:30 100 MG Atorvastatin Calcium 40 mg HS PO 03/17/25 22:00 Hold Potassium Acetate 20 meq/Potassium Phosphate 11 meq/ Calcium Gluconate 2.3 meq/ Multivitamins 10 ml/Chromium/ Copper/Manganese/ Zinc 1 ml/Amino Acids/Dextrose/ Purified Water 1,178.4462 ml @ 50 mls/hr [id number] IV 03/18/25 22:00 03/19/25 21:59 03/18/25 21:35 50 MLS/HR Sodium Chloride 1,000 ml @ 50 mls/hr Q20H IV 03/18/25 10:45 03/19/25 09:39 50 MLS/HR Fat Emulsion Intravenous 50 ml/ Potassium Acetate 20 meq/Potassium Phosphate 22 meq/ Calcium Gluconate 4.65 meq/ Magnesium Sulfate 4 meq/ Multivitamins 10 ml/Chromium/ Copper/Manganese/ Zinc 1 ml/Amino Acids/Dextrose/ Purified Water 1,437 ml @ 60 mls/hr [id number] IV 03/19/25 22:00 03/20/25 21:59 Examination Gen - mild conjunctival pallor, no scleral icterus Skin - Patients skin is warm and dry. HEENT - normocephalic, atraumatic, dry mucous membranes. Neck - supple, no lymphadenopathy Pulmonary - B/L equal air entry cardiovascular - regular S1,S2 heard GI - soft abdomen. Bowel sounds normoactive. Neurological - Patient is sedated and on mechanical ventilation laboratory and microbiology Laboratory Tests 03/19/25 10:25 03/19/25 04:00 Test 03/19/25 04:00 Range/Units Serum Glucose 110 H 74-106 mg/dL Microbiology Date/Time Source Procedure Growth Status 03/16/25 16:36 Nose MRSA Screen - Final Complete 03/16/25 16:06 Sputum Gram Stain - Final Resulted 03/16/25 16:06 Sputum Respiratory Culture - Preliminary Resulted 03/13/25 11:53 Stool Stool Culture - Final Complete 03/13/25 11:53 Stool Shiga Toxin I & II - Final Complete 03/12/25 11:55 Urine - [place] Urine Culture - Final Complete 03/11/25 15:36 Blood Blood Culture - Final NO GROWTH AFTER 5 DAYS OF INCUBATION. Complete Problem List/Assessment/Plan Problem List/Assessment/Plan Assessment Upper GI bleeding likely from persistent duodenal ulcer Duodenal ulcer disease History of perforated duodenal ulcer s/p surgical repair Hiatal hernia Severe grade C linear erosive esophagitis with esophageal ulcers C. difficile colitis Elevated liver enzymes Severe anemia New multiple stroke in different arterial territories (MRI 03/18/25) Multiple chronic strokes GIOVANI on CKD likely due to VMN, improving Transaminitis Plan Continue on Protonix drip NG tube to LIS Monitor H&H, transfuse if HGB less than 7 Monitor LFTs IV metronidazole and ceftriaxone Hold off on anticoagulation and antiplatelet drugs because of likely active GI bleed Continue on TPN Plan discussed with Dr. Stoddard Plan discussed with: Other (JASPER Hare) Dietary Evaluation Review Recommendations by RD: Increase Calorie Intake, PPN/TPN Comments: Pt meets criteria 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 based on severe wt loss 35lb/24% in 5 month, intake <50% estimated requirement x 5 days, severe muscle wasting and fat depletion Nutrition Recommendation: 1) PPN/TPN if NPO continues 2) Advance to soft diet as medically feasible 3) Ensure Enlive 240ml TID if pt resumes PO diet 4) Monitor NPO status, lab values, weight trend, and I/O Expected Outcomes/Goals: Intake to meet >75% estimated needs GI symptoms to improve Fu 2-3 days Food and Nutrition Intake (Sev: <50% est energy req 5days Interpretation of weight loss: >10% in 6 months Body Fat Depletion (Severe): Mod to Severe Depletion Muscle Mass (Severe): Mod to Severe Depletion Protein Calorie Malnutrition: Severe Is there a minimum of two crit: Yes CC Plasma Assessment Blood Product Administration S: [id number] RICHARD TOSCANO RESIDENT Mar 19, 2025 12:46
--- NOTE | 2025-03-20 11:12 | DVHPN2 ---
Progress Note Date Seen: Mar 19, 2025 Medical Necessity Reason Pt with a Central, PICC or Fol: Yes Subjective Review of Systems: RESPIRATORY:Abnormal Other Systems: Patient seen and examined by myself today in follow-up, patient remained intubated on ventilator Objective vital signs Vital Sign Date Time Temp Pulse Resp B/P (MAP) Pulse Ox O2 Delivery O2 Flow Rate FiO2 03/19/25 12:14 132/76 03/19/25 12:00 63 03/19/25 12:00 20 100 Mechanical Ventilator+ 30 30 03/19/25 08:00 98.9 98.9 Total Intake and Output 03/18/25 03/18/25 03/19/25 15:00 23:00 07:00 Intake Total 1119.2 ml 1018 ml 1074.5 ml Output Total 625 ml 1000 ml Balance 1119.2 ml 393 ml 74.5 ml medications Current Medications Medications Dose Ordered Sig/Wally Route Start Time Stop Time Status Last Admin Dose Admin Ondansetron HCl 4 mg Q4HP PRN IV 03/12/25 00:00 Hydralazine HCl 10 mg Q6HP PRN IV 03/12/25 17:30 03/12/25 18:51 10 MG Lorazepam 1 mg Q8HP PRN IV 03/12/25 21:45 03/12/25 21:58 1 MG Ceftriaxone Sodium 50 ml @ 100 mls/hr DAILY@09 IV 03/13/25 09:00 03/19/25 09:59 100 MLS/HR Metronidazole 100 ml @ 100 mls/hr Q8HR IV 03/13/25 14:00 03/19/25 05:32 100 MLS/HR Midazolam HCl 100 ml @ 1 mls/hr Q24H IV 03/16/25 16:30 03/18/25 12:52 3 MLS/HR Fentanyl Citrate 250 ml @ 2.5 mls/hr Q24H IV 03/16/25 16:30 03/19/25 12:14 7.5 MLS/HR Diagnostic Test (Pha) 1 strip Q6HR 03/16/25 18:00 03/19/25 12:14 1 STRIP Insulin Human Regular FOLLOW SLIDING SCALE Q6HR SC 03/16/25 18:00 03/18/25 00:12 2 UNITS Dextrose 50 ml UD IV 03/16/25 17:15 Amino Acids 0 ml @ 0 mls/hr PER PHARMACY IV 03/16/25 17:15 Pantoprazole Sodium 50 ml @ 10 mls/hr Q5H IV 03/16/25 17:15 03/19/25 09:30 10 MLS/HR Folic Acid 1 mg/ Dextrose 50.2 ml @ 200.8 mls/ hr DAILY INJ 03/17/25 10:00 03/19/25 09:30 200.8 MLS/HR Thiamine HCl 100 mg DAILY IV 03/18/25 10:00 03/19/25 09:30 100 MG Atorvastatin Calcium 40 mg HS PO 03/17/25 22:00 Hold Potassium Acetate 20 meq/Potassium Phosphate 11 meq/ Calcium Gluconate 2.3 meq/ Multivitamins 10 ml/Chromium/ Copper/Manganese/ Zinc 1 ml/Amino Acids/Dextrose/ Purified Water 1,178.4462 ml @ 50 mls/hr [id number] IV 03/18/25 22:00 03/19/25 21:59 03/18/25 21:35 50 MLS/HR Sodium Chloride 1,000 ml @ 50 mls/hr Q20H IV 03/18/25 10:45 03/19/25 09:39 50 MLS/HR Fat Emulsion Intravenous 50 ml/ Potassium Acetate 20 meq/Potassium Phosphate 22 meq/ Calcium Gluconate 4.65 meq/ Magnesium Sulfate 4 meq/ Multivitamins 10 ml/Chromium/ Copper/Manganese/ Zinc 1 ml/Amino Acids/Dextrose/ Purified Water 1,437 ml @ 60 mls/hr [id number] IV 03/19/25 22:00 03/20/25 21:59 Examination: LUNGS:Normal, CVS:Normal, MSK:Normal laboratory and microbiology Laboratory Tests 03/19/25 10:25 03/19/25 04:00 Test 03/19/25 04:00 Range/Units Serum Glucose 110 H 74-106 mg/dL Microbiology Date/Time Source Procedure Growth Status 03/16/25 16:36 Nose MRSA Screen - Final Complete 03/16/25 16:06 Sputum Gram Stain - Final Complete 03/16/25 16:06 Respiratory Culture - Final Stenotrophomonas maltophilia Escherichia coli Presumptive Milady albicans Complete 03/13/25 11:53 Stool Stool Culture - Final Complete 03/13/25 11:53 Stool Shiga Toxin I & II - Final Complete 03/12/25 11:55 Urine - [place] Urine Culture - Final Complete 03/11/25 15:36 Blood Blood Culture - Final NO GROWTH AFTER 5 DAYS OF INCUBATION. Complete Problem List/Assessment/Plan Problem List/Assessment/Plan 49 years old male with past medical history of CVA, dyslipidemia, hypertension, left knee surgery, Chronic kidney disease, history of severe Acute kidney injury needed inpatient dialysis previous admission here and then renal recovery presented with chief complaints of diarrhea for the past 5 to 6 days, he also has history of perforated duodenal ulcer status post exploratory laparotomy previous admission, cholecystitis, status post tracheostomy Patient presented to emergency room with hemoglobin of 4.2,s/p 3 U prbc,, s/p egd noted findings. Assessment: Acute kidney injury superimposed Chronic Kidney Disease secondary hemodynamic mediated Acute respiratory failure, patient intubated on ventilator hypernatremia due to dehydration Duodenal ulcer leading to GI bleeding and severe anemia, status post 3 PRBC transfusion CVA Recurrent CVA Hypertension C diff diarrhea Severe protein malnutrition/cachexia Hypokalemia Hypophosphatemia Recommendations * Kidney function is improving * Increased urine output * Strict I&Os * Replete potassium and phosphate and magnesium * We will follow up with the patient * Hyponatremia resolved appropriately * We will continue to follow up Plan discussed with: Other (Nurse) Dietary Evaluation Review Recommendations by RD: Increase Calorie Intake, PPN/TPN Comments: Pt meets criteria 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 based on severe wt loss 35lb/24% in 5 month, intake <50% estimated requirement x 5 days, severe muscle wasting and fat depletion Nutrition Recommendation: 1) PPN/TPN if NPO continues 2) Advance to soft diet as medically feasible 3) Ensure Enlive 240ml TID if pt resumes PO diet 4) Monitor NPO status, lab values, weight trend, and I/O Expected Outcomes/Goals: Intake to meet >75% estimated needs GI symptoms to improve Fu 2-3 days Food and Nutrition Intake (Sev: <50% est energy req 5days Interpretation of weight loss: >10% in 6 months Body Fat Depletion (Severe): Mod to Severe Depletion Muscle Mass (Severe): Mod to Severe Depletion Protein Calorie Malnutrition: Severe Is there a minimum of two crit: Yes CC Plasma Assessment Blood Product Administration S: [id number] MILADY ANDERSON MD Mar 19, 2025 13:05
--- NOTE | 2025-03-20 11:41 | DVHPN2 ---
Progress Note Date Seen: Mar 20, 2025 Resident Creating Document: RONALDO RAWLS RESDIENT Medical Necessity Reason Pt with a Central, PICC or Fol: Yes Subjective Review of Systems Patient seen and examined at the bedside. Patient intubated and on mechanical ventilation Objective vital signs Vital Sign Date Time Temp Pulse Resp B/P (MAP) Pulse Ox O2 Delivery O2 Flow Rate FiO2 03/20/25 07:15 66 20 130/74 (92) 100 03/20/25 06:00 Mechanical Ventilator+ 30 30 03/20/25 04:00 98.5 98.5 Total Intake and Output 03/19/25 03/19/25 03/20/25 15:00 23:00 07:00 Intake Total 1356.8 ml 1071.0 ml 1136.0 ml Output Total 1350 ml 1600 ml Balance 1356.8 ml -279.0 ml -464.0 ml medications Current Medications Medications Dose Ordered Sig/Wally Route Start Time Stop Time Status Last Admin Dose Admin Ondansetron HCl 4 mg Q4HP PRN IV 03/12/25 00:00 Hydralazine HCl 10 mg Q6HP PRN IV 03/12/25 17:30 03/12/25 18:51 10 MG Lorazepam 1 mg Q8HP PRN IV 03/12/25 21:45 03/12/25 21:58 1 MG Ceftriaxone Sodium 50 ml @ 100 mls/hr DAILY@09 IV 03/13/25 09:00 03/19/25 09:59 100 MLS/HR Metronidazole 100 ml @ 100 mls/hr Q8HR IV 03/13/25 14:00 03/20/25 05:30 100 MLS/HR Midazolam HCl 100 ml @ 1 mls/hr Q24H IV 03/16/25 16:30 03/19/25 13:33 2 MLS/HR Fentanyl Citrate 250 ml @ 2.5 mls/hr Q24H IV 03/16/25 16:30 03/19/25 12:14 7.5 MLS/HR Diagnostic Test (Pha) 1 strip Q6HR 03/16/25 18:00 03/20/25 05:30 1 STRIP Insulin Human Regular FOLLOW SLIDING SCALE Q6HR SC 03/16/25 18:00 03/18/25 00:12 2 UNITS Dextrose 50 ml UD IV 03/16/25 17:15 Amino Acids 0 ml @ 0 mls/hr PER PHARMACY IV 03/16/25 17:15 Pantoprazole Sodium 50 ml @ 10 mls/hr Q5H IV 03/16/25 17:15 03/20/25 08:10 10 MLS/HR Folic Acid 1 mg/ Dextrose 50.2 ml @ 200.8 mls/ hr DAILY INJ 03/17/25 10:00 03/19/25 09:30 200.8 MLS/HR Thiamine HCl 100 mg DAILY IV 03/18/25 10:00 03/19/25 09:30 100 MG Atorvastatin Calcium 40 mg HS PO 03/17/25 22:00 Hold Sodium Chloride 1,000 ml @ 50 mls/hr Q20H IV 03/18/25 10:45 03/19/25 09:39 50 MLS/HR Fat Emulsion Intravenous 50 ml/ Potassium Acetate 20 meq/Potassium Phosphate 22 meq/ Calcium Gluconate 4.65 meq/ Magnesium Sulfate 4 meq/ Multivitamins 10 ml/Chromium/ Copper/Manganese/ Zinc 1 ml/Amino Acids/Dextrose/ Purified Water 1,437 ml @ 60 mls/hr [id number] IV 03/19/25 22:00 03/20/25 21:59 03/19/25 21:14 60 MLS/HR Fat Emulsion Intravenous 50 ml/ Potassium Acetate 20 meq/Potassium Phosphate 22 meq/ Calcium Gluconate 4.65 meq/ Magnesium Sulfate 8 meq/ Multivitamins 10 ml/Chromium/ Copper/Manganese/ Zinc 1 ml/Amino Acids/Dextrose/ Purified Water 1,638 ml @ 69 mls/hr [id number] IV 03/20/25 22:00 03/21/25 21:59 Examination General: RASS -1, afebrile, mucosae are dry, cachectic Cardiovascular: Normal S1 and S2. No murmurs, gallops or rubs Respiratory: Mechanically assisted ventilation, equal bilateral airway entree. Clear lung sounds on auscultation Mechanical ventilation setting: GI: Soft, nontender, no organomegaly, normal bowel sounds : Barrios catheter n place, clear yellow urine in collection bag MSK/skin: Mobilization of limbs cannot be evaluated. Skin is dry and warm. IV accesses: Neurological: Orientation cannot be assessed. No apparent motor no sensitive deficits. Pupils are isocoric and reactive laboratory and microbiology Laboratory Tests 03/20/25 03:00 Test 03/20/25 03:00 Range/Units Serum Glucose 120 H 74-106 mg/dL Microbiology Date/Time Source Procedure Growth Status 03/16/25 16:36 Nose MRSA Screen - Final Complete 03/16/25 16:06 Sputum Gram Stain - Final Complete 03/16/25 16:06 Respiratory Culture - Final Stenotrophomonas maltophilia Escherichia coli Presumptive Milady albicans Complete 03/13/25 11:53 Stool Stool Culture - Final Complete 03/13/25 11:53 Stool Shiga Toxin I & II - Final Complete 03/12/25 11:55 Urine - Barrios [place] Urine Culture - Final Complete 03/11/25 15:36 Blood Blood Culture - Final NO GROWTH AFTER 5 DAYS OF INCUBATION. Complete Labs and/or images reviewed: Labs reviewed by me, Image(s) reviewed by me Problem List/Assessment/Plan Problem List/Assessment/Plan 49 years old male with past medical history of CVA, dyslipidemia, hypertension, left knee surgery, Chronic kidney disease, history of severe Acute kidney injury needed inpatient dialysis previous admission here and then renal recovery presented with chief complaints of diarrhea for the past 5 to 6 days, he also has history of perforated duodenal ulcer status post exploratory laparotomy previous admission, cholecystitis, status post tracheostomy Patient presented to emergency room with hemoglobin of 4.2,s/p 3 U prbc,, s/p egd noted findings. Assessment: GIOVANI, on CKD 2, VMN Hypovolemic hypernatremia/dehydration Duodenal ulcer leading to GI bleeding and severe anemia, status post 3 PRBC transfusion History of CVA Recurrent CVA Hypertension C diff diarrhea Severe protein malnutrition/cachexia Hypokalemia Hypophosphatemia Plan/recommendation: (Dr. Almanzar) * Kidney function is improving * Na level normalized, DC 1/2 NS * Strict I&Os * We will follow up with the patient Thank you for giving us the opportunity to take care of the outpatient. Please call back if you have any questions/concerns. Plan discussed with: Other (RN) Dietary Evaluation Review Recommendations by RD: Increase Calorie Intake, PPN/TPN Comments: Pt meets criteria 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 based on severe wt loss 35lb/24% in 5 month, intake <50% estimated requirement x 5 days, severe muscle wasting and fat depletion Nutrition Recommendation: 1) PPN/TPN if NPO continues 2) Advance to soft diet as medically feasible 3) Ensure Enlive 240ml TID if pt resumes PO diet 4) Monitor NPO status, lab values, weight trend, and I/O Expected Outcomes/Goals: Intake to meet >75% estimated needs GI symptoms to improve Fu 2-3 days Food and Nutrition Intake (Sev: <50% est energy req 5days Interpretation of weight loss: >10% in 6 months Body Fat Depletion (Severe): Mod to Severe Depletion Muscle Mass (Severe): Mod to Severe Depletion Protein Calorie Malnutrition: Severe Is there a minimum of two crit: Yes CC Plasma Assessment Blood Product Administration S: [id number] RONALDO RAWLS Mar 20, 2025 08:36
--- NOTE | 2025-03-20 11:44 | DVHPNRES ---
Progress Note Date Seen: Mar 20, 2025 Resident Creating Document: SKY DASH RESIDENT Medical Necessity Reason Pt with a Central, PICC or Fol: Yes Subjective Review of Systems Jossue Perez he is a 49-year-old male past medical history of hypertension, hyperlipidemia, DVT, 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 The patient mentions he had passage of stool 7 times yesterday which was tarry black in color. Patient mentions he also had abdominal pain, nausea and a few episodes of vomiting for the last 2 days. He denies any fever,weakness or weight loss. He reports history of perforated duodenal ulcer s/p exp lap with prolonged ICU stay complicated with sepsis from cholecystitis s/p tracheostomy and removal. On arrival to the hospital, his hemoglobin was 4.2 and he had to be transfused with 2 units of PRBCs. He was kept NPO and NG tube placed. GI was consulted and they recommended continuing with IV Protonix drip scheduled patient for EGD on 03/13/2025. Patient was seen and examined on the bedside. He is on mechanical ventilation with FiO2 30%, Tidal volume 450 mL, respiratory rate 20, peep 5. 24 hours NG suction 250 mL which is bloody coffee-ground. Hemoglobin stable at 8.9 for last 3 days. The patient is on Versed 2 , fentanyl 75 and protonix drip. We are continuing TPN for nutrition. Objective vital signs Vital Sign Date Time Temp Pulse Resp B/P (MAP) Pulse Ox O2 Delivery O2 Flow Rate FiO2 03/20/25 11:00 69 20 141/83 (102) 100 03/20/25 10:22 30 03/20/25 10:00 Mechanical Ventilator+ 03/20/25 08:00 98.8 98.8 Total Intake and Output 03/19/25 03/19/25 03/20/25 15:00 23:00 07:00 Intake Total 1356.8 ml 1071.0 ml 1136.0 ml Output Total 1350 ml 1600 ml Balance 1356.8 ml -279.0 ml -464.0 ml medications Current Medications Medications Dose Ordered Sig/Wally Route Start Time Stop Time Status Last Admin Dose Admin Ondansetron HCl 4 mg Q4HP PRN IV 03/12/25 00:00 Hydralazine HCl 10 mg Q6HP PRN IV 03/12/25 17:30 03/12/25 18:51 10 MG Lorazepam 1 mg Q8HP PRN IV 03/12/25 21:45 03/12/25 21:58 1 MG Ceftriaxone Sodium 50 ml @ 100 mls/hr DAILY@09 IV 03/13/25 09:00 03/20/25 09:05 100 MLS/HR Metronidazole 100 ml @ 100 mls/hr Q8HR IV 03/13/25 14:00 03/20/25 05:30 100 MLS/HR Midazolam HCl 100 ml @ 1 mls/hr Q24H IV 03/16/25 16:30 03/19/25 13:33 2 MLS/HR Fentanyl Citrate 250 ml @ 2.5 mls/hr Q24H IV 03/16/25 16:30 03/19/25 12:14 7.5 MLS/HR Diagnostic Test (Pha) 1 strip Q6HR 03/16/25 18:00 03/20/25 05:30 1 STRIP Insulin Human Regular FOLLOW SLIDING SCALE Q6HR SC 03/16/25 18:00 03/18/25 00:12 2 UNITS Dextrose 50 ml UD IV 03/16/25 17:15 Amino Acids 0 ml @ 0 mls/hr PER PHARMACY IV 03/16/25 17:15 Pantoprazole Sodium 50 ml @ 10 mls/hr Q5H IV 03/16/25 17:15 03/20/25 08:10 10 MLS/HR Folic Acid 1 mg/ Dextrose 50.2 ml @ 200.8 mls/ hr DAILY INJ 03/17/25 10:00 03/20/25 11:07 200.8 MLS/HR Thiamine HCl 100 mg DAILY IV 03/18/25 10:00 03/20/25 09:22 100 MG Atorvastatin Calcium 40 mg HS PO 03/17/25 22:00 Hold Sodium Chloride 1,000 ml @ 50 mls/hr Q20H IV 03/18/25 10:45 03/20/25 09:30 50 MLS/HR Fat Emulsion Intravenous 50 ml/ Potassium Acetate 20 meq/Potassium Phosphate 22 meq/ Calcium Gluconate 4.65 meq/ Magnesium Sulfate 4 meq/ Multivitamins 10 ml/Chromium/ Copper/Manganese/ Zinc 1 ml/Amino Acids/Dextrose/ Purified Water 1,437 ml @ 60 mls/hr [id number] IV 03/19/25 22:00 03/20/25 21:59 03/19/25 21:14 60 MLS/HR Fat Emulsion Intravenous 50 ml/ Potassium Acetate 20 meq/Potassium Phosphate 22 meq/ Calcium Gluconate 4.65 meq/ Magnesium Sulfate 8 meq/ Multivitamins 10 ml/Chromium/ Copper/Manganese/ Zinc 1 ml/Amino Acids/Dextrose/ Purified Water 1,638 ml @ 69 mls/hr [id number] IV 03/20/25 22:00 03/21/25 21:59 Examination Examination General: RASS -1, afebrile, mucosae are moist Cardiovascular: Normal S1 and S2. No murmurs, gallops or rubs Respiratory: Mechanically assisted ventilation, equal bilateral airway entree. Clear lung sounds on auscultation Abdomen: Soft, nontender, no organomegaly, normal bowel sounds MSK/skin: Mobilization of limbs cannot be evaluated. Skin is dry and warm. Neurological: Orientation cannot be assessed. No apparent motor no sensitive deficits. Pupils are isocoric and reactive laboratory and microbiology Laboratory Tests 03/20/25 03:00 Test 03/20/25 03:00 Range/Units Serum Glucose 120 H 74-106 mg/dL Microbiology Date/Time Source Procedure Growth Status 03/16/25 16:36 Nose MRSA Screen - Final Complete 03/16/25 16:06 Sputum Gram Stain - Final Complete 03/16/25 16:06 Respiratory Culture - Final Stenotrophomonas maltophilia Escherichia coli Presumptive Milady albicans Complete 03/13/25 11:53 Stool Stool Culture - Final Complete 03/13/25 11:53 Stool Shiga Toxin I & II - Final Complete 03/12/25 11:55 Urine - Barrios [place] Urine Culture - Final Complete 03/11/25 15:36 Blood Blood Culture - Final NO GROWTH AFTER 5 DAYS OF INCUBATION. Complete Labs and/or images reviewed: Labs reviewed by me, Image(s) reviewed by me Problem List/Assessment/Plan Problem List/Assessment/Plan Assessment and plan : NEURO: Acute metabolic encephalopathy secondary to acute ischemic stroke Acute or subacute ischemic stroke RASS score: - 1 - CT head without contrast demonstrated new medial right parieto-occipital focal region of diminished parenchymal attenuation within the medial right parietal occipital lobes. This is concerning for an acute to subacute infarct with chronic multifocal lacunar infarct - MRI showed Infarcts involving multiple vascular territories involved medial right occipital lobe, posterior left occipital lobe, and left lopes radiata white matter tracts. Few additional tiny foci of diffusion restriction at the anterior right parietal cortex. - Neurology on board - hold aspirin and Plavix for now because of GI bleeding - hold atorvastatin as patient is NPO CARDIOVASCULAR: Chronic diastolic heart failure with preserved ejection fraction - Echo on 11/12 demonstrated EF 65%, MILD LVH AND MILD LV DIASTOLIC DYSFUNCTION - elevated BNP - CxR showed Bilateral interstitial opacities, small left basilar consolidation and pleural effusion PULMONARY: Acute hypoxic respiratory failure S/P intubation GASTROINTESTINAL: Acute GI bleed upper vs lower Partial small Intestinal obstruction likely secondary to fecal impaction. Cholelithiasis C diff positive Transaminitis likely secondary to low hepatic perfusion -CT abdomen/pelvis showed low-grade distal partial obstruction due to fecal retention. - Gastrograffin study showed Contrast is identified within the colon by 3 hours. No evidence of bowel obstruction. -EGD on 03/13/25 showed 1-2 cm sliding-type hiatal hernia with severe grade C linear erosive esophagitis with esophageal ulcers extending into the distal 15 cm of the esophagus persistent duodenal bulb ulcer seen just inside the pyloric opening which was large coalescing with a visible sutures; there was no active bleeding or visible vessel but there was acute on chronic inflammation deformity of the postbulbar duodenal area and I was able to see the 2nd part of the duodenum but there was area of debris and ongoing chronic ulceration inflammation and the endoscope was not advanced beyond this area mild gastritis and some old coffee-ground within the stomach - NPO - NG with LIS - IV Protonix drip - Zofran 4 mg IV q.4 PRN - IV 0.45% N/S @ 50 ml/hr - IV ceftriaxone 1 gm daily and IV metronidazole 500 mg 8hrly. - GI and surgery are on the board - pending bleeding scan as patient is intubated and on mechanical ventilation - Monitor Hand H, transfuse if hemoglobin less than 7 GENITOURINARY: GIOVANI on CKD likely hemodynamically mediated/VMN - Nephrology on board - Monitor BMP METABOLIC: Hypernatremia Hypokalemia Hypophosphatemia - replaced potassium and phosphate - monitor BMP HEME: Severe microcytic hypochromic anemia due to GI bleeding Iron deficiency due to above - Patient received 4 units of PRBC - Monitor H&H INFECTIOUS DISEASE: Acute C diff infection - hold po vanc because of upper GI bleeding DIET: TPN DVT prophylax: Hold due to GI bleeding GI prophylaxis: Protonix drip Bowel regimen: Code status: Full code LINES/DRAINS/ACCESS: ETT: Intubated on 03/16/2025 IV access: Right IJ placed on 03/16/2025 Drips: Fentanyl, Versed, Protonix drip Barrios catheter: DISPOSITION: ICU Patient's status discussed with RN, Critical care time spent more than 72 minutes, including patient care, chart review, and updating the family. Excluding any procedures. Case discussed with Dr. Grant Plan discussed with: Other My Orders My Orders Orders - SKY DASH RESIDENT Procedure Category Date Status Time Chest Portable XY 03/20/25 Resulted 04:00 Abg W/ Co-Ox RT 03/20/25 Logged 04:00 Amino Acid PHA 03/19/25 In Process Infusion... W/Fat 22:00 Tpn Per Pharmacy CINTHIA 03/19/25 In Process 22:00 Amino Acid PHA 03/20/25 In Process Infusion... W/Fat 22:00 Tpn Per Pharmacy CINTHIA 03/20/25 In Process 22:00 Comprehensive LAB 03/21/25 Verified Metabolic Panel 04:00 Magnesium LAB 03/21/25 Verified 04:00 Phosphorus LAB 03/21/25 Verified 04:00 Dietary Evaluation Review Recommendations by RD: Increase Calorie Intake, PPN/TPN Comments: Pt meets criteria 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 based on severe wt loss 35lb/24% in 5 month, intake <50% estimated requirement x 5 days, severe muscle wasting and fat depletion Nutrition Recommendation: 1) PPN/TPN if NPO continues 2) Advance to soft diet as medically feasible 3) Ensure Enlive 240ml TID if pt resumes PO diet 4) Monitor NPO status, lab values, weight trend, and I/O Expected Outcomes/Goals: Intake to meet >75% estimated needs GI symptoms to improve Fu 2-3 days Food and Nutrition Intake (Sev: <50% est energy req 5days Interpretation of weight loss: >10% in 6 months Body Fat Depletion (Severe): Mod to Severe Depletion Muscle Mass (Severe): Mod to Severe Depletion Protein Calorie Malnutrition: Severe Is there a minimum of two crit: Yes CC Plasma Assessment Blood Product Administration S: [id number] Date of Service: Mar 20, 2025 Billing Provider: HOLLAND GRANT MD Common Visit Codes: [id number] INP/OBS CARE(HIGH) VALENTINO DASHRA RESIDENT Mar 20, 2025 11:12 HOLLAND GRANT MD Mar 20, 2025 23:28
--- NOTE | 2025-03-20 15:49 | DVHPN2 ---
Progress Note Date Seen: Mar 20, 2025 Resident Creating Document: RICHARD TOSCANO RESIDENT Medical Necessity Reason Pt with a Central, PICC or Fol: Yes Subjective Review of Systems About 200 mL of suction reported, dark brown in color H&H is stable, has been stable for the last 3 days Minimal ventilator requirements including peep of 5 and FiO2 30% RASS of -3 Objective vital signs Vital Sign Date Time Temp Pulse Resp B/P (MAP) Pulse Ox O2 Delivery O2 Flow Rate FiO2 03/20/25 15:42 152/84 03/20/25 14:51 72 20 100 30 03/20/25 14:00 Mechanical Ventilator+ 03/20/25 12:00 98.9 98.9 Total Intake and Output 03/19/25 03/19/25 03/20/25 15:00 23:00 07:00 Intake Total 1356.8 ml 1071.0 ml 1136.0 ml Output Total 1350 ml 1600 ml Balance 1356.8 ml -279.0 ml -464.0 ml medications Current Medications Medications Dose Ordered Sig/Wally Route Start Time Stop Time Status Last Admin Dose Admin Ondansetron HCl 4 mg Q4HP PRN IV 03/12/25 00:00 Hydralazine HCl 10 mg Q6HP PRN IV 03/12/25 17:30 03/12/25 18:51 10 MG Lorazepam 1 mg Q8HP PRN IV 03/12/25 21:45 03/12/25 21:58 1 MG Ceftriaxone Sodium 50 ml @ 100 mls/hr DAILY@09 IV 03/13/25 09:00 03/20/25 09:05 100 MLS/HR Metronidazole 100 ml @ 100 mls/hr Q8HR IV 03/13/25 14:00 03/20/25 14:19 100 MLS/HR Midazolam HCl 100 ml @ 1 mls/hr Q24H IV 03/16/25 16:30 03/20/25 15:41 2 MLS/HR Fentanyl Citrate 250 ml @ 2.5 mls/hr Q24H IV 03/16/25 16:30 03/20/25 15:42 7.5 MLS/HR Diagnostic Test (Pha) 1 strip Q6HR 03/16/25 18:00 03/20/25 12:00 1 STRIP Insulin Human Regular FOLLOW SLIDING SCALE Q6HR SC 03/16/25 18:00 03/18/25 00:12 2 UNITS Dextrose 50 ml UD IV 03/16/25 17:15 Amino Acids 0 ml @ 0 mls/hr PER PHARMACY IV 03/16/25 17:15 Pantoprazole Sodium 50 ml @ 10 mls/hr Q5H IV 03/16/25 17:15 03/20/25 12:41 10 MLS/HR Folic Acid 1 mg/ Dextrose 50.2 ml @ 200.8 mls/ hr DAILY INJ 03/17/25 10:00 03/20/25 11:07 200.8 MLS/HR Thiamine HCl 100 mg DAILY IV 03/18/25 10:00 03/20/25 09:22 100 MG Atorvastatin Calcium 40 mg HS PO 03/17/25 22:00 Hold Fat Emulsion Intravenous 50 ml/ Potassium Acetate 20 meq/Potassium Phosphate 22 meq/ Calcium Gluconate 4.65 meq/ Magnesium Sulfate 4 meq/ Multivitamins 10 ml/Chromium/ Copper/Manganese/ Zinc 1 ml/Amino Acids/Dextrose/ Purified Water 1,437 ml @ 60 mls/hr [id number] IV 03/19/25 22:00 03/20/25 21:59 03/19/25 21:14 60 MLS/HR Fat Emulsion Intravenous 50 ml/ Potassium Acetate 20 meq/Potassium Phosphate 22 meq/ Calcium Gluconate 4.65 meq/ Magnesium Sulfate 8 meq/ Multivitamins 10 ml/Chromium/ Copper/Manganese/ Zinc 1 ml/Amino Acids/Dextrose/ Purified Water 1,638 ml @ 69 mls/hr [id number] IV 03/20/25 22:00 03/21/25 21:59 Examination Gen - mild conjunctival pallor, no scleral icterus Skin - Patients skin is warm and dry. HEENT - normocephalic, atraumatic, dry mucous membranes. Neck - supple, no lymphadenopathy Pulmonary - B/L equal air entry cardiovascular - regular S1,S2 heard GI - soft abdomen. Bowel sounds normoactive. Neurological - Patient is sedated and on mechanical ventilation laboratory and microbiology Laboratory Tests 03/20/25 03:00 Test 03/20/25 03:00 Range/Units Serum Glucose 120 H 74-106 mg/dL Microbiology Date/Time Source Procedure Growth Status 03/16/25 16:36 Nose MRSA Screen - Final Complete 03/16/25 16:06 Sputum Gram Stain - Final Complete 03/16/25 16:06 Respiratory Culture - Final Stenotrophomonas maltophilia Escherichia coli Presumptive Milady albicans Complete 03/13/25 11:53 Stool Stool Culture - Final Complete 03/13/25 11:53 Stool Shiga Toxin I & II - Final Complete 03/12/25 11:55 Urine - Barrios [place] Urine Culture - Final Complete 03/11/25 15:36 Blood Blood Culture - Final NO GROWTH AFTER 5 DAYS OF INCUBATION. Complete Problem List/Assessment/Plan Problem List/Assessment/Plan Assessment Upper GI bleeding likely from persistent duodenal ulcer Duodenal ulcer disease History of perforated duodenal ulcer s/p surgical repair Hiatal hernia Severe grade C linear erosive esophagitis with esophageal ulcers C. difficile colitis Elevated liver enzymes Severe anemia New multiple stroke in different arterial territories (MRI 03/18/25) Multiple chronic strokes GIOVANI on CKD likely due to VMN, improving Transaminitis Plan Continue on Protonix drip NG tube clamped and residual checked every shift, we will monitor and try to start trickle feeding tomorrow Monitor H&H, transfuse if HGB less than 7 LFTs improving IV metronidazole and ceftriaxone Hold off on anticoagulation and antiplatelet drugs because of likely active GI bleed Continue on TPN Plan discussed with Dr. Stoddard Plan discussed with: Other (JASPER Cervantes, primary team Dr. Khoury) My Orders My Orders Orders - RICHARD TOSCANO RESIDENT Procedure Category Date Status Time Clamp Ngt ORDERS 03/20/25 Transmitted 14:27 Check Gastric Residual CINTHIA 03/20/25 In Process 21:00 Dietary Evaluation Review Recommendations by RD: Increase Calorie Intake, PPN/TPN Comments: Pt meets criteria 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 based on severe wt loss 35lb/24% in 5 month, intake <50% estimated requirement x 5 days, severe muscle wasting and fat depletion Nutrition Recommendation: 1) PPN/TPN if NPO continues 2) Advance to soft diet as medically feasible 3) Ensure Enlive 240ml TID if pt resumes PO diet 4) Monitor NPO status, lab values, weight trend, and I/O Expected Outcomes/Goals: Intake to meet >75% estimated needs GI symptoms to improve Fu 2-3 days Food and Nutrition Intake (Sev: <50% est energy req 5days Interpretation of weight loss: >10% in 6 months Body Fat Depletion (Severe): Mod to Severe Depletion Muscle Mass (Severe): Mod to Severe Depletion Protein Calorie Malnutrition: Severe Is there a minimum of two crit: Yes CC Plasma Assessment Blood Product Administration S: [id number] RICHARD TOSCANO RESIDENT Mar 20, 2025 15:49
[2025-03-20] MEDS: TPN PER PHARMACY IV NR (21:30)
--- NOTE | 2025-03-20 22:19 | DVHINCON2 ---
Date of service: Mar 20, [address] Khoury Reason for Consultation Acute hypoxic respiratory failure requiring mechanical ventilator History of Present Illness A 49-year-old man with past medical history of hypertension, hyperlipidemia, DVT, and CVA in August 2023 with memory loss but no other deficits who presented to the ED on 03/11/25 with complaint of 7 episodes of diarrhea on day prior to presentation which was tarry black in color. Patient denied any abdominal pain, chest pain, fever, chills , nausea, or vomiting. He is not on any blood thinner. He reports history of perforated duodenal ulcer s/p exp lap with prolonged ICU stay, complicated with sepsis from cholecystitis, s/p tracheostomy and removal. He also reported being unable to keep any food down for the past few days. On admission his BP was 103/63, Sat of 97% RA and an Accu-Chek of 122. On arrival to the hospital, his hemoglobin was 4.2 and he had to be transfused with 2 units of PRBCs. He was kept NPO and NG tube placed. Patient was admitted for further care. Pulmonary consultation is requested for evaluation and management of acute hypoxic respiratory failure requiring mechanical ventilator Review of Systems: Unable to obtain d/t intubated status Past Medical History: hypertension, hyperlipidemia, DVT, and CVA in August 2023 Past Surgical History: Left knee surgery Medications: Reviewed. Allergies: No known drug allergies. Family History: Father due to ME in mid 40s, mother had lung cancer. Social History: Former smoker. smoked 1 pack per day for 30 years Admits to vaping nicotine now Drug use: Takes marijuana once in a while via bong Alcohol: Former; used to drink 6 beers per day and some shots for past 30 years but stopped after recent surgery Family History: Alcoholism G8 MOTHER Cardiovascular disease G8 MOTHER G8 FATHER FH: heart disease FH: lung cancer Hypertension G8 MOTHER Allergies: Coded Allergies: NO KNOWN ALLERGIES (Unverified , 08/22/23) Home Meds Active Scripts Hydralazine HCl (Hydralazine HCl) 25 Mg Tab, 25 MG PO BID for 30 Days, #60 TAB Prov:SALBINO,QUINN FIELD MERCHANDISER 12/08/24 Labetalol HCl (Labetalol HCl) 200 Mg Tab, 200 MG PO BID for 30 Days, #60 TAB Prov:SALBINO,QUINN FI[employer] MERCHANDISER 12/08/24 Nifedipine (Nifedipine Er) 60 Mg Tab, 2 TAB PO DAILY, #30 TAB 5 Refills Prov:ASHWINRcCHEYENNE FIELD MERCHANDISER 12/08/24 Pantoprazole Sodium Sesquihydr (Protonix) 40 Mg Tab, 40 MG PO BID for 30 Days, #60 TAB Prov:ASHWINRcCHEYENNE FIELD MERCHANDISER 12/08/24 Sucralfate (CARAFATE) 1 Gm Tab, 1 GM OR ACHS for 30 Days, #120 TAB Prov:GLENDYCHEYENNE FIELD MERCHANDISER 12/08/24 Reported Medications Escitalopram Oxalate (ESCITALOPRAM OXALATE) 10 Mg Tab, 1 TAB PO DAILY for 30 Days, #30 10/06/24 Current Medications Current Medications Medications (Trade) Dose Ordered Sig/Wally Route PRN Reason Start Time Stop Time Status Last Admin Fat Emulsion Intravenous 50 ml/ Potassium Acetate 20 meq/Potassium Phosphate 22 meq/ Calcium Gluconate 4.65 meq/ Magnesium Sulfate 8 meq/ Multivitamins 10 ml/Chromium/ Copper/Manganese/ Zinc 1 ml/Amino Acids/Dextrose/ Purified Water 1,638 ml @ 69 mls/hr [id number] IV 03/20/25 22:00 03/21/25 21:59 03/20/25 21:30 Vital Signs Vital Signs Date Time Temp Pulse Resp B/P (MAP) Pulse Ox O2 Delivery O2 Flow Rate FiO2 03/20/25 21:00 68 20 135/76 (95) 100 03/20/25 20:08 30 03/20/25 20:00 Mechanical Ventilator+ 03/20/25 20:00 98.9 98.9 Physical Exam Gen.: Patient lying in bed in medical ICU. Sedated, intubated on mechanical ventilator. Head: Normocephalic, atraumatic. Eyes: PERRLA. Ears: Normal external anatomy. Throat: Endotracheal tube and orogastric tube in place. Neck: Supple, trachea midline. Chest: Transmitted breath sounds bilaterally. Decreased air entry bilaterally. No wheezing. Bibasilar crackles. Cardiovascular: Positive S1, positive S2. Regular rate and rhythm. Abdomen: Positive bowel sounds in all 4 quadrants. Soft, nontender, nondistended. : Barrios in place. Normal external genitalia. Rectal: Deferred. Skin: Warm, dry. Intact. Extremities: 2+ radial pulses bilaterally. No lower extremity edema. Neuro: Sedated. Labs/Diagnostic Data Labs Test 03/20/25 17:12 03/20/25 06:18 03/20/25 03:00 03/18/25 14:10 Range/Units POC Glucose 105 70-106 mg/dl Blood Gas Specimen Type Arterial Blood Gas Sample Site Left radial Blood Gas Patient Temperature 37.0 Arterial Blood Date Drawn [id number] Arterial Blood pH 7.444 7.350-7.450 Arterial Blood Partial Pressure CO2 32.0 L 35.0-48.0 mmHg Arterial Blood Partial Pressure O2 111.0 H 83.0-108.0 mmHg Arterial Blood HCO3 21.4 21.0-28.0 mmol/L Arterial Blood Oxygen Saturation 97.6 94.0-98.0 % Arterial Blood Base Excess -2.1 L -2.0-3.0 mmol/L Arterial Blood Oxyhemoglobin 96.8 94.0-98.0 % Arterial Blood Carboxyhemoglobin 0.3 L 0.5-1.5 % Arterial Blood Methemoglobin 0.5 0.0-1.5 % Ke Test Modified Blood Gas Total Hemoglobin 9.70 L 13.5-17.5 g/dL Blood Gas Set Respiration Rate 20.0 Blood Gas Modality Vent - ac FiO2 % 30.0 Blood Gas Tidal Volume 500.0 Blood Gas PEEP or CPAP 5.0 White Blood Count 8.1 4.4-10.8 10^3/uL Red Blood Count 3.25 L 4.5-5.90 10^6/uL Hemoglobin 8.9 L 13.5-17.5 g/dL Hematocrit 27.1 L 41.0-53.0 % Mean Corpuscular Volume 83.4 80.0-100.0 fL Mean Corpuscular Hemoglobin 27.3 L 28.0-32.0 pg Mean Corpuscular Hemoglobin Concent 32.7 32.0-36.0 g/dL Red Cell Distribution Width 22.8 H 11.8-14.3 % Platelet Count 148 140-450 10^3/uL Mean Platelet Volume 7.2 6.9-10.8 fL Neutrophils (%) (Auto) 76.9 37.0-80.0 % Lymphocytes (%) (Auto) 16.0 10.0-50.0 % Monocytes (%) (Auto) 4.7 0.0-12.0 % Eosinophils (%) (Auto) 2.2 0.0-7.0 % Basophils (%) (Auto) 0.2 0.0-2.0 % Neutrophils # (Auto) 6.2 1.6-8.6 10 ^3/uL Lymphocytes # (Auto) 1.3 0.4-5.4 10 ^3/uL Monocytes # (Auto) 0.4 0-1.3 10 ^3/uL Eosinophils # (Auto) 0.2 0-0.8 10 ^3/uL Basophils # (Auto) 0 0-0.2 10 ^3/uL Nucleated Red Blood Cells 0.0 % Sodium Level 141 136-145 mmol/L Potassium Level 3.9 3.5-5.1 mmol/L Chloride Level 106 98-107 mmol/L Carbon Dioxide Level 26 20-31 mmol/L Anion Gap 9 5-15 Blood Urea Nitrogen 44 H 9-23 mg/dL Creatinine 1.44 H 0.700-1.30 mg/dL Glomerular Filtration Rate Calc 59 >90 mL/min BUN/Creatinine Ratio 30.6 H 10.0-20.0 Serum Glucose 120 H 74-106 mg/dL Calcium Level 7.6 L 8.7-10.4 mg/dL Phosphorus Level 3.1 2.4-5.1 mg/dL Magnesium Level 1.8 1.6-2.6 mg/dL Total Bilirubin 0.6 0.2-1.0 mg/dL Aspartate Amino Transferase (AST) 178 H 13-40 U/L Alanine Aminotransferase (ALT) 338 H 7-40 U/L Alkaline Phosphatase 158 H 46-116 U/L Total Protein 5.2 L 5.7-8.2 g/dL Albumin 2.4 L 3.2-4.8 g/dL Hepatitis A Antibody Total Negative Negative Hepatitis B Surface Antigen Negative Negative Hepatitis B Surface Antibody Negative Negative Hepatitis B Core Total Antibody Negative Negative Hepatitis C Antibody Negative Negative Test 03/17/25 14:40 03/17/25 07:41 03/17/25 06:30 03/16/25 17:45 Range/Units HIV (1&2) Antibody Negative Negative Blood Gas Critical Value Read Back Yes Blood Gas Notified Whom Rishi gunn Blood Gas Notified Time [id number] Blood Gas Notified By Dong atkinson Urine Creatinine 56.14 30.0-125.0 mg/dL Urine Sodium 13 L 40-220 mmol/L Blood Gas Spontaneous Rate 24 Specimen Drawn By arrington rt Test 03/16/25 17:16 03/16/25 14:00 03/16/25 13:59 03/13/25 11:53 Range/Units Direct Bilirubin 0.5 H <0.3 mg/dL Triglycerides Level 137 < 150 mg/dL Vitamin D 25-Hydroxy 35.5 30.0-100 ng/mL Blood Gas Liter Flow 4.00 B-Type Natriuretic Peptide > 5000.00 0-100 pg/mL Parathyroid Hormone (Intact) 190.7 H 18.4-80.1 pg/mL Stool Occult Blood Positive Negative Stool Occult Blood Sample #3 Negative Test 03/13/25 04:58 03/13/25 03:46 03/12/25 10:20 03/12/25 05:00 Range/Units Thyroid Stimulating Hormone (TSH) 3.84 0.55-4.78 uIU/mL Ammonia 18 11-32 umol/L Urine Protein/Creatinine Ratio 2.26 Urine Total Protein 23.6 H 1-14 mg/dL Urine Color Light-yellow Yellow Urine Clarity Clear Clear Urine pH 5.5 5.0-9.0 Urine Specific Foster 1.013 1.001-1.035 Urine Protein Trace H Negative Urine Ketones Trace Negative Urine Blood Negative Negative /uL Urine Nitrite Negative Negative Urine Bilirubin Negative Negative Urine Urobilinogen Normal Negative mg/dL Urine Leukocyte Esterase Negative Negative /uL Urine RBC <1 0 - 3 /hpf Urine Microscopic WBC < 1 0-3 /HPF Urine Squamous Epithelial Cells None seen <5 /hpf Urine Bacteria None seen None Seen /hpf Urine Glucose Normal Normal mg/dL Urine Opiates Screen Neg NEGATIVE Urine Fentanyl Screen Neg NEGATIVE Urine Barbiturates Screen Neg NEGATIVE Urine Phencyclidine Screen Neg NEGATIVE Urine Amphetamines Screen Neg NEGATIVE Urine Benzodiazepines Screen Neg NEGATIVE Urine Cocaine Screen Neg NEGATIVE Urine Cannabinoids Screen Neg NEGATIVE Test 03/12/25 04:28 03/11/25 23:05 03/11/25 17:15 Range/Units Prothrombin Time 10.2 9.3-11.8 sec Prothrombin Time INR 0.96 0.9-1.15 Activated Partial Thromboplast Time 24.8 24.5-34.5 SEC Iron Level 39 L 65-175 ug/dL Total Iron Binding Capacity 321 250-425 ug/dL Percent Iron Saturation 12.1 L 20-55 % Ferritin 21.1 L 22-322 ng/mL Vitamin B12 Level 852 211-911 pg/mL Folic Acid 12.28 >5.38 ng/mL Plasma/Serum Blood Alcohol < 3.0 <10 mg/dL Reticulocyte Count (auto) 3.05 H 0.5-1.5 % Lactate Dehydrogenase 245 120-246 U/L Lactic Acid Level 1.9 0.4-2.0 mmol/L Microbiology Date/Time Source Procedure Growth Status 03/16/25 16:36 Nose MRSA Screen - Final Complete 03/16/25 16:06 Sputum Gram Stain - Final Complete 03/16/25 16:06 Respiratory Culture - Final Stenotrophomonas maltophilia Escherichia coli Presumptive Milady albicans Complete 03/13/25 11:53 Stool Stool Culture - Final Complete 03/13/25 11:53 Stool Shiga Toxin I & II - Final Complete 03/12/25 11:55 Urine - Barrios [place] Urine Culture - Final Complete 03/11/25 15:36 Blood Blood Culture - Final NO GROWTH AFTER 5 DAYS OF INCUBATION. Complete Assessment Impression: Acute hypoxic respiratory failure On mechanical ventilator Acute metabolic encephalopathy Multiple strokes Chronic diastolic heart failure with preserved EF GI hemorrhage Anemia GIOVANI on CKD Plan: s/p intubation on mechanical ventilator. On AC mode; RR 20, VT 450, PEEP 5, FiO2 30% Titrate FIO2 to keep O2 saturation above 90%. VAP bundle. Daily ABG and CXR while intubated Sedate for ventilator synchrony Continue antibiotics. Follow up cultures. Pressors as necessary for hemodynamic support Titrate to keep mean arterial pressure greater than 65 mmHg. Monitor hemoglobin - 8.9 g/dL Transfuse if less than 7.0 g/dL. NGT to LIS Protonix drip F/u GI and Surgery recs Accu-Cheks Monitor renal function Monitor electrolytes. Supplement as necessary. Monitor ins and outs. Maintain euvolemia. TPN for nutritional support Counseled against vaping and marijuana use. GI prophylaxis. DVT prophylaxis. Prognosis: Poor given patient's multiple co-morbidities. Condition: Critical Rest of plan per hospitalist and other consultants. A total of 35 minutes of critical care time was spent reviewing the patient record, examining the patient, making a diagnostic and therapeutic plan, discussing this plan with the medical personnel, following up on diagnostic studies and following the patient for clinical stability excluding any and all procedures. At least 50% of this time was spent in direct, [id number] contact. Thank you, Dr. Khoury, for allowing me to participate in this patient's care. Further recommendations will depend on the patient's clinical course. Please do not hesitate to contact me if you have any questions or concerns. This medical document was created using an electronic medical record system with [employer] dictation system. Although these documentations are being carefully reviewed, there may still be some phonetic and typographical changes. The errors are purely typographical, due to imperfection on the software program, and do not reflect any compromise in the patient's medical care. Plan discussed with: Patient, Other (RN/MD) Visit Coding Pulmonary Billing Provider: ARIE LOPZE MD Date of Service if different f: Mar 20, 2025 Common Visit Codes: [id number] CARE 30-74 MIN ARIE LOPEZ MD Mar 20, 2025 22:19
[2025-03-21] VITALS (105 sets, daily range): BP systolic 107–146; BP diastolic 67–85; PULSE 74–117; RESP 19–22; TEMP 98–99.1; O2SAT 99–100
[2025-03-21 04:10] LABS: Hematocrit 25.6 % (41.0-53.0); Hemoglobin 8.4 g/dL (13.5-17.5); Mean Corpuscular Hemoglobin 27.6 pg (28.0-32.0); Mean Corpuscular Volume 83.6 fL (80.0-100.0); Nucleated Red Blood Cells % 0.1 %
[2025-03-21 04:15] LABS: Anion Gap 9 (5-15); BUN/Creatinine Ratio 32.0 (10.0-20.0); Carbon Dioxide 27 mmol/L (20-31); Chloride 106 mmol/L (98-107); Magnesium 2.0 mg/dL (1.6-2.6); Potassium 3.6 mmol/L (3.5-5.1); Sodium 142 mmol/L (136-145)
[2025-03-21 04:16] LABS: Bilirubin, Total 0.7 mg/dL (0.2-1.0)
[2025-03-21 04:40] LABS: Alanine Aminotransferase 259 U/L (7-40); Albumin 2.2 g/dL (3.2-4.8); Alkaline Phosphatase 217 U/L (46-116); Blood Urea Nitrogen 47 mg/dL (9-23); Calcium 7.7 mg/dL (8.7-10.4); Glucose 127 mg/dL (74-106); Total Protein 4.9 g/dL (5.7-8.2)
--- NOTE | 2025-03-21 05:21 | DVH ---
CHEST RADIOGRAPH Indication: mechanical ventilation Technique: Single frontal view of the chest was obtained COMPARISON: XY CHEST PORTABLE on DOS: 03/20/25, XY CHEST PORTABLE on DOS: 03/19/25, XY CHEST PORTABLE on DOS: 03/18/25, XY CHEST PORTABLE on DOS: 03/17/25, XY CHEST PORTABLE on DOS: 03/16/25 FINDINGS: Lines and Tubes: Interval retraction of the endotracheal tube such that the tip now projects approxim ately 4.3 cm above the level of the dunia. Remaining lines and tubes unchanged. Lungs: Small left pleural effusion. No evidence of focal consolidation. No pneumothorax. Cardiomediastinal contours: Unremarkable Bones: Unremarkable IMPRESSION: 1. Interval retraction of the endotracheal tube such that the tip now projects approximately 4.3 cm a jami the level of the dunia. Remaining lines and tubes unchanged. 2. Small left pleural effusion.
[2025-03-21 10:15] LABS: Base Excess -0.4 mmol/L (-2.0-3.0)
--- NOTE | 2025-03-21 10:25 | DVHPNRES ---
Progress Note Date Seen: Mar 21, 2025 Resident Creating Document: SILAS STAHL RESIDENT Has the PT tested + for MRSA If YES, has PT been informed?: No Medical Necessity Reason Pt with a Central, PICC or Fol: Yes Subjective Review of Systems Patient seen and examined at bedside. The patient is currently sedated on fentanyl and Versed currently intubated on minimal ventilatory settings. FiO2 of 30%, PEEP 5, Sat 100%. Today chest x-ray is showing clear lungs bilaterally with well-positioned endotracheal tube. Nasogastric tube with negative suctioning was suspended and NG tube was clamped. We are waiting for GI assessment to determine when to start NG tube feedings, meanwhile we will continue TPN at this time. Patient is currently hemodynamically stable, off pressors on sinus rhythm. We will continue Protonix drip, ceftriaxone metronidazole IV antibiotics by this time. Per nurse last gastric residual volumes were 100 cc. Hemoglobin today is 8.4 and has been stable in the last four days. Liver function enzymes are also improving by this time. We will continue bowel rest at this time and current medical regimen. We will wait for GI for feedings recommendations. ROS unable to obtain due to patient's current status sedated and intubated. Objective vital signs Vital Sign Date Time Temp Pulse Resp B/P (MAP) Pulse Ox O2 Delivery O2 Flow Rate FiO2 03/21/25 09:51 86 20 125/74 (91) 100 30 03/21/25 08:00 Mechanical Ventilator+ 03/21/25 08:00 98.9 98.9 Total Intake and Output 03/20/25 03/20/25 03/21/25 15:00 23:00 07:00 Intake Total 1261.2 ml 722.0 ml 822.0 ml Output Total 1775 ml 1800 ml Balance 1261.2 ml -1053.0 ml -978.0 ml medications Current Medications Medications Dose Ordered Sig/Wally Route Start Time Stop Time Status Last Admin Dose Admin Ondansetron HCl 4 mg Q4HP PRN IV 03/12/25 00:00 Hydralazine HCl 10 mg Q6HP PRN IV 03/12/25 17:30 03/20/25 22:27 10 MG Lorazepam 1 mg Q8HP PRN IV 03/12/25 21:45 03/12/25 21:58 1 MG Ceftriaxone Sodium 50 ml @ 100 mls/hr DAILY@09 IV 03/13/25 09:00 03/21/25 08:54 100 MLS/HR Metronidazole 100 ml @ 100 mls/hr Q8HR IV 03/13/25 14:00 03/21/25 05:49 100 MLS/HR Midazolam HCl 100 ml @ 1 mls/hr Q24H IV 03/16/25 16:30 03/20/25 15:41 2 MLS/HR Fentanyl Citrate 250 ml @ 2.5 mls/hr Q24H IV 03/16/25 16:30 03/20/25 15:42 7.5 MLS/HR Diagnostic Test (Pha) 1 strip Q6HR 03/16/25 18:00 03/21/25 05:49 1 STRIP Insulin Human Regular FOLLOW SLIDING SCALE Q6HR SC 03/16/25 18:00 03/21/25 05:46 2 UNITS Dextrose 50 ml UD IV 03/16/25 17:15 Amino Acids 0 ml @ 0 mls/hr PER PHARMACY IV 03/16/25 17:15 Pantoprazole Sodium 50 ml @ 10 mls/hr Q5H IV 03/16/25 17:15 03/21/25 09:46 10 MLS/HR Folic Acid 1 mg/ Dextrose 50.2 ml @ 200.8 mls/ hr DAILY INJ 03/17/25 10:00 03/20/25 11:07 200.8 MLS/HR Thiamine HCl 100 mg DAILY IV 03/18/25 10:00 03/21/25 09:54 100 MG Atorvastatin Calcium 40 mg HS PO 03/17/25 22:00 Hold Fat Emulsion Intravenous 50 ml/ Potassium Acetate 20 meq/Potassium Phosphate 22 meq/ Calcium Gluconate 4.65 meq/ Magnesium Sulfate 8 meq/ Multivitamins 10 ml/Chromium/ Copper/Manganese/ Zinc 1 ml/Amino Acids/Dextrose/ Purified Water 1,638 ml @ 69 mls/hr [id number] IV 03/20/25 22:00 03/21/25 21:59 03/20/25 21:30 69 MLS/HR Examination Physical Examination General: Patient is sedated and intubated on minimal ventilatory settings. Patient looks significantly cachectic HEENT: Normocephalic, atraumatic, moist mucous membranes Respiratory/pulmonary: Clear lungs bilaterally, no associated crackles or wheezes. Cardiovascular: Normal heart sounds S1 and S2 with no associated murmurs Abdomen: Abdomen nondistended, there is no pain to palpation in any of the abdominal quadrants, no palpable masses. Extremities: There is no peripheral edema present at the lower extremities. Skin: No rashes or pruritus, there is no sacral edema present at this time. Neurological: RASS -3 laboratory and microbiology Laboratory Tests 03/21/25 03:25 Test 03/21/25 03:25 Range/Units Serum Glucose 127 H 74-106 mg/dL Microbiology Date/Time Source Procedure Growth Status 03/16/25 16:36 Nose MRSA Screen - Final Complete 03/16/25 16:06 Sputum Gram Stain - Final Complete 03/16/25 16:06 Respiratory Culture - Final Stenotrophomonas maltophilia Escherichia coli Presumptive Milady albicans Complete 03/13/25 11:53 Stool Stool Culture - Final Complete 03/13/25 11:53 Stool Shiga Toxin I & II - Final Complete 03/12/25 11:55 Urine - Barrios [place] Urine Culture - Final Complete 03/11/25 15:36 Blood Blood Culture - Final NO GROWTH AFTER 5 DAYS OF INCUBATION. Complete Problem List/Assessment/Plan Problem List/Assessment/Plan Assessment/Plan NEURO: Acute metabolic encephalopathy secondary to acute ischemic stroke Acute or subacute ischemic stroke RASS score: - 2 - CT head without contrast demonstrated new medial right parieto-occipital focal region of diminished parenchymal attenuation within the medial right parietal occipital lobes. This is concerning for an acute to subacute infarct with chronic multifocal lacunar infarct - MRI showed Infarcts involving multiple vascular territories involved medial right occipital lobe, posterior left occipital lobe, and left lopes radiata white matter tracts. Few additional tiny foci of diffusion restriction at the anterior right parietal cortex. - Neurology on board - hold aspirin and Plavix for now because of GI bleeding - hold atorvastatin as patient is NPO CARDIOVASCULAR: Chronic diastolic heart failure with preserved ejection fraction - Echo on 0 11/12 demonstrated EF 65%, MILD LVH AND MILD LV DIASTOLIC DYSFUNCTION - elevated BNP - CxR showed Bilateral interstitial opacities, small left basilar consolidation and pleural effusion PULMONARY: Acute hypoxic respiratory failure S/P intubation GASTROINTESTINAL: Acute GI bleed upper vs lower Partial small Intestinal obstruction likely secondary to fecal impaction. Cholelithiasis C diff positive Transaminitis likely secondary to low hepatic perfusion -CT abdomen/pelvis showed low-grade distal partial obstruction due to fecal retention. - Gastrograffin study showed Contrast is identified within the colon by 3 hours. No evidence of bowel obstruction. -EGD on 03/13/25 showed 1-2 cm sliding-type hiatal hernia with severe grade C linear erosive esophagitis with esophageal ulcers extending into the distal 15 cm of the esophagus persistent duodenal bulb ulcer seen just inside the pyloric opening which was large coalescing with a visible sutures; there was no active bleeding or visible vessel but there was acute on chronic inflammation deformity of the postbulbar duodenal area and I was able to see the 2nd part of the duodenum but there was area of debris and ongoing chronic ulceration inflammation and the endoscope was not advanced beyond this area mild gastritis and some old coffee-ground within the stomach - on TPN -Waiting for GI recommendations regarding staring EN - Stopped NG tub with negative suction and was clamped - Continue IV Protonix drip - Zofran 4 mg IV q.4 PRN - Stopped IV fluids - IV ceftriaxone 1 gm daily and IV metronidazole 500 mg 8hrly. - GI and surgery are on the board - pending bleeding scan as patient is intubated and on mechanical ventilation - Monitor Hand H, transfuse if hemoglobin less than 7 GENITOURINARY: GIOVANI on CKD likely hemodynamically mediated/VMN - Nephrology on board - Monitor BMP METABOLIC: Hypernatremia Hypokalemia Hypophosphatemia - replaced potassium and phosphate - monitor BMP HEME: Severe microcytic hypochromic anemia due to GI bleeding Iron deficiency due to above - Patient received 4 units of PRBC - Monitor H&H INFECTIOUS DISEASE: Acute C diff infection - hold po vanc because of upper GI bleeding DIET: TPN DVT prophylax: Hold due to GI bleeding GI prophylaxis: Protonix drip Bowel regimen: Code status: Full code LINES/DRAINS/ACCESS: ETT: Intubated on 03/16/2025 IV access: Right IJ placed on 03/16/2025 Drips: Fentanyl, Versed, Protonix drip Goals of care discussed with the , 73min, Full code status Plan discussed with Dr Grant Plan discussed with: Patient Dietary Evaluation Review Recommendations by RD: Increase Calorie Intake, PPN/TPN Comments: Pt meets criteria 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 based on severe wt loss 35lb/24% in 5 month, intake <50% estimated requirement x 5 days, severe muscle wasting and fat depletion Nutrition Recommendation: 1) PPN/TPN if NPO continues 2) Advance to soft diet as medically feasible 3) Ensure Enlive 240ml TID if pt resumes PO diet 4) Monitor NPO status, lab values, weight trend, and I/O Expected Outcomes/Goals: Intake to meet >75% estimated needs GI symptoms to improve Fu 2-3 days Food and Nutrition Intake (Sev: <50% est energy req 5days Interpretation of weight loss: >10% in 6 months Body Fat Depletion (Severe): Mod to Severe Depletion Muscle Mass (Severe): Mod to Severe Depletion Protein Calorie Malnutrition: Severe Is there a minimum of two crit: Yes CC Plasma Assessment Blood Product Administration S: [id number] Date of Service: Mar 21, 2025 Billing Provider: HOLLAND GRANT MD Common Visit Codes: [id number] INP/OBS CARE(HIGH) SILAS STAHL RESIDENT Mar 21, 2025 10:25 HOLLAND GRANT MD Mar 21, 2025 23:57
--- NOTE | 2025-03-21 13:10 | DVHPN2 ---
Progress Note Date Seen: Mar 21, 2025 Resident Creating Document: RICHARD TOSCANO RESIDENT Has the PT tested + for MRSA If YES, has PT been informed?: No Medical Necessity Reason Pt with a Central, PICC or Fol: Yes Subjective Review of Systems Patient seen and examined at bedside NG clamped yesterday and in the morning residual 100 mL H&H stable LFTs trending down Objective vital signs Vital Sign Date Time Temp Pulse Resp B/P (MAP) Pulse Ox O2 Delivery O2 Flow Rate FiO2 03/21/25 13:00 79 20 122/70 (87) 100 03/21/25 12:00 98.9 98.9 03/21/25 11:49 30 03/21/25 10:00 Mechanical Ventilator+ Total Intake and Output 03/20/25 03/20/25 03/21/25 15:00 23:00 07:00 Intake Total 1261.2 ml 722.0 ml 822.0 ml Output Total 1775 ml 1800 ml Balance 1261.2 ml -1053.0 ml -978.0 ml medications Current Medications Medications Dose Ordered Sig/Wally Route Start Time Stop Time Status Last Admin Dose Admin Ondansetron HCl 4 mg Q4HP PRN IV 03/12/25 00:00 Hydralazine HCl 10 mg Q6HP PRN IV 03/12/25 17:30 03/20/25 22:27 10 MG Lorazepam 1 mg Q8HP PRN IV 03/12/25 21:45 03/12/25 21:58 1 MG Ceftriaxone Sodium 50 ml @ 100 mls/hr DAILY@09 IV 03/13/25 09:00 03/21/25 08:54 100 MLS/HR Metronidazole 100 ml @ 100 mls/hr Q8HR IV 03/13/25 14:00 03/21/25 05:49 100 MLS/HR Midazolam HCl 100 ml @ 1 mls/hr Q24H IV 03/16/25 16:30 03/20/25 15:41 2 MLS/HR Fentanyl Citrate 250 ml @ 2.5 mls/hr Q24H IV 03/16/25 16:30 03/20/25 15:42 7.5 MLS/HR Diagnostic Test (Pha) 1 strip Q6HR 03/16/25 18:00 03/21/25 12:14 1 STRIP Insulin Human Regular FOLLOW SLIDING SCALE Q6HR SC 03/16/25 18:00 03/21/25 12:18 2 UNITS Dextrose 50 ml UD IV 03/16/25 17:15 Amino Acids 0 ml @ 0 mls/hr PER PHARMACY IV 03/16/25 17:15 Pantoprazole Sodium 50 ml @ 10 mls/hr Q5H IV 03/16/25 17:15 03/21/25 09:46 10 MLS/HR Folic Acid 1 mg/ Dextrose 50.2 ml @ 200.8 mls/ hr DAILY INJ 03/17/25 10:00 03/21/25 10:50 200.8 MLS/HR Thiamine HCl 100 mg DAILY IV 03/18/25 10:00 03/21/25 09:54 100 MG Atorvastatin Calcium 40 mg HS PO 03/17/25 22:00 Hold Fat Emulsion Intravenous 50 ml/ Potassium Acetate 20 meq/Potassium Phosphate 22 meq/ Calcium Gluconate 4.65 meq/ Magnesium Sulfate 8 meq/ Multivitamins 10 ml/Chromium/ Copper/Manganese/ Zinc 1 ml/Amino Acids/Dextrose/ Purified Water 1,638 ml @ 69 mls/hr [id number] IV 03/20/25 22:00 03/21/25 21:59 03/20/25 21:30 69 MLS/HR Fat Emulsion Intravenous 100 ml/Potassium Acetate 25 meq/ Potassium Phosphate 22 meq/ Calcium Gluconate 4.65 meq/ Magnesium Sulfate 8 meq/ Multivitamins 10 ml/Chromium/ Copper/Manganese/ Zinc 1 ml/Amino Acids/Dextrose/ Purified Water 1,690.5 ml @ 70 mls/hr Q24H9M IV 03/21/25 22:00 03/22/25 21:59 Examination Gen - mild conjunctival pallor, no scleral icterus Skin - Patients skin is warm and dry. HEENT - normocephalic, atraumatic, dry mucous membranes. Neck - supple, no lymphadenopathy Pulmonary - B/L equal air entry cardiovascular - regular S1,S2 heard GI - soft abdomen. Bowel sounds hypoactive. Neurological - Patient is sedated and on mechanical ventilation laboratory and microbiology Laboratory Tests 03/21/25 03:25 Test 03/21/25 03:25 Range/Units Serum Glucose 127 H 74-106 mg/dL Microbiology Date/Time Source Procedure Growth Status 03/16/25 16:36 Nose MRSA Screen - Final Complete 03/16/25 16:06 Sputum Gram Stain - Final Complete 03/16/25 16:06 Respiratory Culture - Final Stenotrophomonas maltophilia Escherichia coli Presumptive Milady albicans Complete 03/13/25 11:53 Stool Stool Culture - Final Complete 03/13/25 11:53 Stool Shiga Toxin I & II - Final Complete 03/12/25 11:55 Urine - [place] Urine Culture - Final Complete 03/11/25 15:36 Blood Blood Culture - Final NO GROWTH AFTER 5 DAYS OF INCUBATION. Complete Problem List/Assessment/Plan Problem List/Assessment/Plan Assessment Upper GI bleeding likely from persistent duodenal ulcer Duodenal ulcer disease History of perforated duodenal ulcer s/p surgical repair Hiatal hernia Severe grade C linear erosive esophagitis with esophageal ulcers C. difficile colitis Elevated liver enzymes Severe anemia New multiple stroke in different arterial territories (MRI 03/18/25) Multiple chronic strokes GIOVANI on CKD likely due to VMN, improving Transaminitis Pneumonia Plan Continue on Protonix drip NG tube clamped and residual checked in the morning 100 mL, start feeding through NG tube 10 mL per hour increased to 20 and check residuals Q shift Monitor H&H, transfuse if HGB less than 7 LFTs improving IV metronidazole and ceftriaxone Hold off on anticoagulation and antiplatelet drugs because of likely active GI bleed Continue on TPN Plan discussed with Dr. Stoddard Plan discussed with: Other (JASPER Suggs) My Orders My Orders Orders - RICHARD TOSCANO RESIDENT Procedure Category Date Status Time Clamp Ngt ORDERS 03/20/25 Transmitted 14:27 Check Gastric Residual CINTHIA 03/20/25 In Process 21:00 Dietary Evaluation Review Recommendations by RD: Increase Calorie Intake, PPN/TPN Comments: Pt meets criteria 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 based on severe wt loss 35lb/24% in 5 month, intake <50% estimated requirement x 5 days, severe muscle wasting and fat depletion Nutrition Recommendation: 1) PPN/TPN if NPO continues 2) Advance to soft diet as medically feasible 3) Ensure Enlive 240ml TID if pt resumes PO diet 4) Monitor NPO status, lab values, weight trend, and I/O Expected Outcomes/Goals: Intake to meet >75% estimated needs GI symptoms to improve Fu 2-3 days Food and Nutrition Intake (Sev: <50% est energy req 5days Interpretation of weight loss: >10% in 6 months Body Fat Depletion (Severe): Mod to Severe Depletion Muscle Mass (Severe): Mod to Severe Depletion Protein Calorie Malnutrition: Severe Is there a minimum of two crit: Yes CC Plasma Assessment Blood Product Administration S: [id number] RICHARD TOSCANO RESIDENT Mar 21, 2025 13:10
[2025-03-21] MEDS ORDERED: Jevity 1.2 Cal/Fiber 1 Liter NG SCH (15:15)
--- NOTE | 2025-03-21 18:15 | DVHPN2 ---
Progress Note - Dictate Date Seen: Mar 21, 2025 Has the PT tested + for MRSA If YES, has PT been informed?: No Medical Necessity Reason Pt with a Central, PICC or Fol: Yes Subjective Mr. Perez is a 49 years old right-handed gentleman with a history of hypertension, dyslipidemia, multiple strokes, DVT, he was brought to the [facility] on 03/11/2025 with a chief complaint of diarrhea, history is obtained from his , the chart review I saw him on 08/23/2023 for TIA, 10/27/2024 for encephalopathy I have seen and examined the patient, I have talked to his nurse, he is intubated, awake, follows verbal commands. He only moves the left arm Versed 2 mg/hour, fentanyl 100 mcg/hour Stool occult blood, 03/13/2025: Positive UDS, 03/12/2025: Negative Plasma alcohol, 03/12/2025: <3 Urinalysis, 03/12/2025: WBC: One, urine leukocyte esterase: Negative ABG, 03/16/25: Hypoxia, respiratory acidosis WBC/Hb/PLT'/MCV, 03/16/25: 10.l 6/7.9/339/82.4 Na, 03/11/2025: 129, 03/12/2025: 130, 129, 03/15/25: 145, 03/16/25: 142 BUNs/CR, 08/22/2023: 15/1.45, 03/11/2025: 55/1.77, 03/13/2025: 43/1.58, 02/2725: 65/2.56 GFR, 08/22/2023: 59 TBI/AST/ALT/AP,: 0.8/269/450/398 TG/CHO L/LDL/HDL, 08/2023: 136/166/111/39 Vitamin B12, 03/12/25: 852 Folic acid, 03/12/2025: 12.28 TSH, 08/23/2023: 4.25 Extremity venous study, right arm, 11/09/2024: Thrombus is seen in the cephalic vein in the forearm. DONAL, 08/23/2023: 1. No evidence of intracardiac source of embolus in the study conducted today. 2. Normal valves without significant masses or change vegetations were discernible. 3. No evidence of intra-atrial shunting by bubble study and color Doppler. 4. Mild atherosclerotic plaquing was visualized in the arch of the aorta without evidence of dissection in the visualized part EGD, 03/13/2025: 1. 1-2 cm sliding-type hiatal hernia with severe grade C linear erosive esophagitis with esophageal ulcers extending into the distal 15 cm of the esophagus 2. Patient had a persistent duodenal bulb ulcer seen just inside the pyloric opening which was large coalescing with a visible sutures; there was no active bleeding or visible vessel but there was acute on chronic inflammation 3. Patient had deformity of the postbulbar duodenal area and I was able to see the 2nd part of the duodenum but there was area of debris and ongoing chronic ulceration inflammation and the endoscope was not advanced beyond this area 3. Patient had mild gastritis and some old coffee-ground within the stomach Chest x-ray, 03/12/2025: Mild chronic appearing left basilar pulmonary airspace disease and possible small pleural effusion Chest x-ray, 03/13/2025: 1. Enteric tube terminates in the stomach. 2. Worsening bilateral interstitial and alveolar opacities. Chest x-ray, : Endotracheal tube and right IJ approach central venous catheters are in satisfactory position. Trace actc-hzmodla-dbmc-right pleural effusions with right retro lower lung zone linear atelectasis/ fluid within the fissure. CT head, 10/24/2024: 1. No intracranial hemorrhage or mass effect. 2. Xcib-vr-grvuiphg chronic microvascular ischemic changes. 3. Old bilateral basal ganglia lacunar infarcts. 4. Small bilateral mastoid effusions. CT head, 03/17/2025: 1. New medial right parieto-occipital focal region of diminished parenchymal attenuation within the medial right parietal occipital lobes. This is concerning for an acute to subacute infarct. Recommend further evaluation with MRI. 2. No evidence of acute intracranial hemorrhage, mass effect or hydrocephalus. 3. Chronic sequelae of microangiopathy and atrophic cortical volume loss.4. Multifocal chronic lacunar infarcts as outlined above. CT abdomen/pelvis, 10/04/2024: 1. Extensive intra-abdominal free air concerning for perforated viscus. Surgical consultation is recommended. 2. Enteritis is seen in multiple loops of small bowel in the left hemiabdomen. 3. Moderate abdominopelvic ascites. 4. Small right pleural effusion. CTA neck, head, 08/22/2023:1. CTA head demonstrates no evidence of large vessel occlusion, aneurysm, or significant stenosis. 2. CTA neck demonstrates no evidence of carotid or vertebral dissection or significant stenosis. 3. No noncontrast CT head was performed. 4. Additional findings as detailed above MRI head, 08/23/2023: No acute infarct, intracranial hemorrhage, mass effect, or hydrocephalus. Moderate periventricular and deep subcortical white matter T2 hyperintensities which are nonspecific, but most likely related to sequela of chronic microvascular ischemic changes (I have reviewed the MRI films with our in-house radiologist, Dr. Sosa, the patient had bilateral multiple subacute/chronic infarcts) MRI head, 11/01/2024: No acute cerebrovascular ischemia. Gayu-tz-homgslix chronic microvascular ischemic changes. Bilateral mastoid effusions. Old bilateral basal ganglia / lopes radiata infarcts. MR head, 03/16/2025: Infarcts involving multiple vascular territories as described. vital signs Vital Sign Date Time Temp Pulse Resp B/P (MAP) Pulse Ox O2 Delivery O2 Flow Rate FiO2 03/21/25 18:00 85 20 136/81 (99) 100 03/21/25 18:00 30 03/21/25 18:00 Mechanical Ventilator+ 03/21/25 16:00 99.1 99.1 Total Intake and Output 03/20/25 03/20/25 03/21/25 15:00 23:00 07:00 Intake Total 1261.2 ml 722.0 ml 822.0 ml Output Total 1775 ml 1800 ml Balance 1261.2 ml -1053.0 ml -978.0 ml medications Current Medications Medications Dose Ordered Sig/Wally Route Start Time Stop Time Status Last Admin Dose Admin Ondansetron HCl 4 mg Q4HP PRN IV 03/12/25 00:00 Hydralazine HCl 10 mg Q6HP PRN IV 03/12/25 17:30 03/20/25 22:27 10 MG Lorazepam 1 mg Q8HP PRN IV 03/12/25 21:45 03/12/25 21:58 1 MG Ceftriaxone Sodium 50 ml @ 100 mls/hr DAILY@09 IV 03/13/25 09:00 03/21/25 08:54 100 MLS/HR Metronidazole 100 ml @ 100 mls/hr Q8HR IV 03/13/25 14:00 03/21/25 13:30 100 MLS/HR Midazolam HCl 100 ml @ 1 mls/hr Q24H IV 03/16/25 16:30 03/20/25 15:41 2 MLS/HR Fentanyl Citrate 250 ml @ 2.5 mls/hr Q24H IV 03/16/25 16:30 03/20/25 15:42 7.5 MLS/HR Diagnostic Test (Pha) 1 strip Q6HR 03/16/25 18:00 03/21/25 17:40 1 STRIP Insulin Human Regular FOLLOW SLIDING SCALE Q6HR SC 03/16/25 18:00 03/21/25 12:18 2 UNITS Dextrose 50 ml UD IV 03/16/25 17:15 Amino Acids 0 ml @ 0 mls/hr PER PHARMACY IV 03/16/25 17:15 Pantoprazole Sodium 50 ml @ 10 mls/hr Q5H IV 03/16/25 17:15 03/21/25 14:51 10 MLS/HR Folic Acid 1 mg/ Dextrose 50.2 ml @ 200.8 mls/ hr DAILY INJ 03/17/25 10:00 03/21/25 10:50 200.8 MLS/HR Thiamine HCl 100 mg DAILY IV 03/18/25 10:00 03/21/25 09:54 100 MG Atorvastatin Calcium 40 mg HS PO 03/17/25 22:00 Hold Fat Emulsion Intravenous 50 ml/ Potassium Acetate 20 meq/Potassium Phosphate 22 meq/ Calcium Gluconate 4.65 meq/ Magnesium Sulfate 8 meq/ Multivitamins 10 ml/Chromium/ Copper/Manganese/ Zinc 1 ml/Amino Acids/Dextrose/ Purified Water 1,638 ml @ 69 mls/hr [id number] IV 03/20/25 22:00 03/21/25 21:59 03/20/25 21:30 69 MLS/HR Fat Emulsion Intravenous 100 ml/Potassium Acetate 25 meq/ Potassium Phosphate 22 meq/ Calcium Gluconate 4.65 meq/ Magnesium Sulfate 8 meq/ Multivitamins 10 ml/Chromium/ Copper/Manganese/ Zinc 1 ml/Amino Acids/Dextrose/ Purified Water 1,690.5 ml @ 70 mls/hr Q24H9M IV 03/21/25 22:00 03/22/25 21:59 Enteral Nutritional Formula 1,000 ml 20 ML/HR NG 03/21/25 16:00 objective The patient is well-nourished and well-developed with no distress. The patient is intubated MENTAL STATUS: Subjective CRANIAL NERVES: Pupils are equal, round and reactive. There is conjugated eye movement. Motor sensory examination on bilateral trigeminal distribution is fine, No signs of facial weakness. There are gagging or coughing reflexes oral and airway care SENSATION: Okay to touch MOTOR: Normal tone in the upper and lower extremity. Normal muscle bulk. No fasciculations. Moves the left arm REFLEXES: Deep tendon reflexes are symmetrical. No pathological reflexes. CEREBELLAR/COORDINATION: Deferred GAIT/STATION: deferred. laboratory and microbiology Laboratory Tests 03/21/25 03:25 Test 03/21/25 03:25 Range/Units Serum Glucose 127 H 74-106 mg/dL Problem List Altered mental status Metabolic encephalopathy secondary to sepsis, septic shock, hypernatremia Hypoxic encephalopathy Peptic ulcer, GI bleeding, anemia Respiratory failure New multiple stroke in different arterial territories (MRI 03/18/25) Multiple chronic strokes Maybe secondary to history methamphetamine, cocaine, alcohol use History of alcohol abuse History of cocaine, methamphetamine abuse Improving Assessment/Plan Monitoring Supportive treatment ICU care Stabilize vitals Respiratory support/vent management Follow-up labs IV antibiotics Aspirin 81 mg daily later Lipitor later TPN Thiamine supplementation Folic acid supplementation GI service on case Nephrology service on case More recommended per clinical course This medical document was created using an electronic medical record system with [employer] dictation system. Although this document has been carefully reviewed, there may still be some phonetic and typographical errors. These areas are purely typographical due to imperfect Prognosis guarded Dietary Evaluation Review Recommendations by RD: Increase Calorie Intake, PPN/TPN Comments: Pt meets criteria 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 based on severe wt loss 35lb/24% in 5 month, intake <50% estimated requirement x 5 days, severe muscle wasting and fat depletion Nutrition Recommendation: 1) PPN/TPN if NPO continues 2) Advance to soft diet as medically feasible 3) Ensure Enlive 240ml TID if pt resumes PO diet 4) Monitor NPO status, lab values, weight trend, and I/O Expected Outcomes/Goals: Intake to meet >75% estimated needs GI symptoms to improve Fu 2-3 days Food and Nutrition Intake (Sev: <50% est energy req 5days Interpretation of weight loss: >10% in 6 months Body Fat Depletion (Severe): Mod to Severe Depletion Muscle Mass (Severe): Mod to Severe Depletion Protein Calorie Malnutrition: Severe Is there a minimum of two crit: Yes Plan discussed with: Other CC Plasma Assessment Blood Product Administration S: [id number] LEANDRO SOSA MD Mar 21, 2025 18:15
--- NOTE | 2025-03-21 21:53 | DVHPN2 ---
Subjective DOS: 03/21/2025 Patient seen and examined at bedside. Sedated, intubated on mechanical ventilator. Overnight events reviewed. Changes from previous H/P or p: No Changes Eyes: No Pain, No Vision change, No Conjunctivae inflammation, No Eyelid inflammation, No Other, No Redness ENT: No Ear pain, No Ear discharge, No Nose pain, No Nose discharge, No Nose congestion, No Mouth pain, No Mouth swelling, No Throat pain, No Throat swelling, No Other Cardiovascular: No Chest Pain, No Palpitations, No Orthopnea, No Paroxysmal Noc. Dyspnea, No Edema, No Lt Headedness, No Other Respiratory: No Cough, No Dry, No Shortness of breath, No SOB with excertion, No Wheezing, No Hemoptysis, No Pleuritic Pain, No Sputum, No Other Gastrointestinal: Melena Musculoskeletal: No other, No neck pain, No shoulder pain, No arm pain, No back pain, No hand pain, No leg pain, No foot pain Skin: No Rash, No Lesions, No Jaundice, No Bruising, No Other Objective Vitals Vital Signs Date Time Temp Pulse Resp B/P (MAP) Pulse Ox O2 Delivery O2 Flow Rate FiO2 03/21/25 20:26 85 20 126/73 (90) 100 30 03/21/25 18:00 Mechanical Ventilator+ 03/21/25 16:00 99.1 99.1 Intake/Output Intake and Output 03/21/25 07:00 Intake Total 2805.2 ml Output Total 3575 ml Balance -769.8 ml Intake Oral 0 ml IV Total 2805.2 ml Output Urine Total 3175 ml Stool Total 0 ml Drainage Total 400 ml Exam Gen.: Patient lying in bed in medical ICU. Sedated, intubated on mechanical ventilator. Head: Normocephalic, atraumatic. Eyes: PERRLA. Ears: Normal external anatomy. Throat: Endotracheal tube and orogastric tube in place. Neck: Supple, trachea midline. Chest: Transmitted breath sounds bilaterally. Decreased air entry bilaterally. No wheezing. Bibasilar crackles. Cardiovascular: Positive S1, positive S2. Regular rate and rhythm. Abdomen: Positive bowel sounds in all 4 quadrants. Soft, nontender, nondistended. : Barrios in place. Normal external genitalia. Rectal: Deferred. Skin: Warm, dry. Intact. Extremities: 2+ radial pulses bilaterally. No lower extremity edema. Neuro: Sedated. Medications Current Medications Medications Dose Ordered Sig/Wally Route Start Time Stop Time Status Last Admin Dose Admin Ondansetron HCl 4 mg Q4HP PRN IV 03/12/25 00:00 Hydralazine HCl 10 mg Q6HP PRN IV 03/12/25 17:30 03/20/25 22:27 10 MG Lorazepam 1 mg Q8HP PRN IV 03/12/25 21:45 03/12/25 21:58 1 MG Ceftriaxone Sodium 50 ml @ 100 mls/hr DAILY@09 IV 03/13/25 09:00 03/21/25 08:54 100 MLS/HR Metronidazole 100 ml @ 100 mls/hr Q8HR IV 03/13/25 14:00 03/21/25 13:30 100 MLS/HR Midazolam HCl 100 ml @ 1 mls/hr Q24H IV 03/16/25 16:30 03/20/25 15:41 2 MLS/HR Fentanyl Citrate 250 ml @ 2.5 mls/hr Q24H IV 03/16/25 16:30 03/21/25 20:10 10 MLS/HR Diagnostic Test (Pha) 1 strip Q6HR 03/16/25 18:00 03/21/25 17:40 1 STRIP Insulin Human Regular FOLLOW SLIDING SCALE Q6HR SC 03/16/25 18:00 03/21/25 12:18 2 UNITS Dextrose 50 ml UD IV 03/16/25 17:15 Amino Acids 0 ml @ 0 mls/hr PER PHARMACY IV 03/16/25 17:15 Pantoprazole Sodium 50 ml @ 10 mls/hr Q5H IV 03/16/25 17:15 03/21/25 20:18 10 MLS/HR Folic Acid 1 mg/ Dextrose 50.2 ml @ 200.8 mls/ hr DAILY INJ 03/17/25 10:00 03/21/25 10:50 200.8 MLS/HR Thiamine HCl 100 mg DAILY IV 03/18/25 10:00 03/21/25 09:54 100 MG Atorvastatin Calcium 40 mg HS PO 03/17/25 22:00 Hold Fat Emulsion Intravenous 50 ml/ Potassium Acetate 20 meq/Potassium Phosphate 22 meq/ Calcium Gluconate 4.65 meq/ Magnesium Sulfate 8 meq/ Multivitamins 10 ml/Chromium/ Copper/Manganese/ Zinc 1 ml/Amino Acids/Dextrose/ Purified Water 1,638 ml @ 69 mls/hr [id number] IV 03/20/25 22:00 03/21/25 21:59 03/20/25 21:30 69 MLS/HR Fat Emulsion Intravenous 100 ml/Potassium Acetate 25 meq/ Potassium Phosphate 22 meq/ Calcium Gluconate 4.65 meq/ Magnesium Sulfate 8 meq/ Multivitamins 10 ml/Chromium/ Copper/Manganese/ Zinc 1 ml/Amino Acids/Dextrose/ Purified Water 1,690.5 ml @ 70 mls/hr [id number] IV 03/21/25 22:00 03/22/25 21:59 Enteral Nutritional Formula 1,000 ml 20 ML/HR NG 03/21/25 16:00 Laboratory Results Laboratory Tests 03/21/25 03:25 Chemistry Test 03/21/25 03:25 Albumin 2.2 g/dL (3.2-4.8) L Calcium Level 7.7 mg/dL (8.7-10.4) L Magnesium Level 2.0 mg/dL (1.6-2.6) Phosphorus Level 3.2 mg/dL (2.4-5.1) Total Protein 4.9 g/dL (5.7-8.2) L LFT Test 03/21/25 03:25 Alanine Aminotransferase (ALT) 259 U/L (7-40) H Alkaline Phosphatase 217 U/L (46-116) H Aspartate Amino Transferase (AST) 88 U/L (13-40) H Total Bilirubin 0.7 mg/dL (0.2-1.0) Urinalysis Test 03/12/25 05:00 03/12/25 10:20 03/17/25 06:30 Urine Color Light-yellow (Yellow) Urine Clarity Clear (Clear) Urine pH 5.5 (5.0-9.0) Urine Specific [place] 1.013 (1.001-1.035) Urine Protein Trace (Negative) H Urine Ketones Trace (Negative) Urine Blood Negative /uL (Negative) Urine Nitrite Negative (Negative) Urine Bilirubin Negative (Negative) Urine Urobilinogen Normal mg/dL (Negative) Urine Leukocyte Esterase Negative /uL (Negative) Urine RBC <1 /hpf (0 - 3) Urine Microscopic WBC < 1 /HPF (0-3) Urine Squamous Epithelial Cells None seen /hpf (<5) Urine Bacteria None seen /hpf (None Seen) Urine Glucose Normal mg/dL (Normal) Urine Protein/Creatinine Ratio 2.26 Urine Total Protein 23.6 mg/dL (1-14) H Urine Creatinine 56.14 mg/dL (30.0-125.0) Urine Sodium 13 mmol/L (40-220) L Blood Gas Results Test 03/21/25 07:12 Arterial Blood pH 7.421 (7.350-7.450) FiO2 % 30.0 Microbiology Microbiology Date/Time Source Procedure Growth Status 03/16/25 16:36 Nose MRSA Screen - Final Complete 03/16/25 16:06 Sputum Gram Stain - Final Complete 03/16/25 16:06 Respiratory Culture - Final Stenotrophomonas maltophilia Escherichia coli Presumptive Milady albicans Complete 03/13/25 11:53 Stool Stool Culture - Final Complete 03/13/25 11:53 Stool Shiga Toxin I & II - Final Complete 03/12/25 11:55 Urine - Barrios [place] Urine Culture - Final Complete 03/11/25 15:36 Blood Blood Culture - Final NO GROWTH AFTER 5 DAYS OF INCUBATION. Complete Assessment/Plan Assessment/Plan Impression: Acute hypoxic respiratory failure On mechanical ventilator Acute metabolic encephalopathy Multiple strokes Chronic diastolic heart failure with preserved EF GI hemorrhage Anemia GIOVANI on CKD Events: Remains on vent support On AC mode; RR 20, VT 500, PEEP 5, FiO2 30% Taper FiO2 as tolerated Sedated on Versed, Fentanyl Continue antibiotics IV fluids at 100 ml/hr. Continue Protonix drip Hemoglobin stable at 8.4 g/dL TPN for nutritional support Labs and imaging reviewed. Rest of plan as noted below. Plan: s/p intubation on mechanical ventilator. On AC mode; RR 20, VT 500, PEEP 5, FiO2 30% Titrate FIO2 to keep O2 saturation above 90%. VAP bundle. Daily ABG and CXR while intubated Sedate for ventilator synchrony Continue antibiotics. Follow up cultures. Pressors as necessary for hemodynamic support Titrate to keep mean arterial pressure greater than 65 mmHg. Monitor hemoglobin Transfuse if less than 7.0 g/dL. NGT to LIS Protonix drip F/u GI and Surgery recs Accu-Cheks Monitor renal function Monitor electrolytes. Supplement as necessary. Monitor ins and outs. Maintain euvolemia. TPN for nutritional support Counseled against vaping and marijuana use. GI prophylaxis. DVT prophylaxis. Prognosis: Poor given patient's multiple co-morbidities. Condition: Critical Rest of plan per hospitalist and other consultants. A total of 35 minutes of critical care time was spent reviewing the patient record, examining the patient, making a diagnostic and therapeutic plan, discussing this plan with the medical personnel, following up on diagnostic studies and following the patient for clinical stability excluding any and all procedures. At least 50% of this time was spent in direct, [id number] contact. Thank you, Dr. Khoury, for allowing me to participate in this patient's care. Further recommendations will depend on the patient's clinical course. Please do not hesitate to contact me if you have any questions or concerns. This medical document was created using an electronic medical record system with [employer] dictation system. Although these documentations are being carefully reviewed, there may still be some phonetic and typographical changes. The errors are purely typographical, due to imperfection on the software program, and do not reflect any compromise in the patient's medical care. Plan discussed with: Other (RN Frandy) My Orders Orders - ARIE LOPEZ MD Procedure Category Date Status Time Respiratory Misc. RT 03/21/25 Transmitted Order 11:33 Visit Coding Pulmonary Billing Provider: ARIE LOPEZ MD Date of Service if different f: Mar 21, 2025 Common Visit Codes: [id number] INP/OBS CARE(HIGH), [id number] CARE 30-74 MIN ARIE LOPEZ MD Mar 21, 2025 21:53
[2025-03-21] MEDS: Jevity 1.2 Cal/Fiber 1 Liter NG SCH (22:08)
[2025-03-22] VITALS (109 sets, daily range): BP systolic 123–170; BP diastolic 69–104; PULSE 67–106; RESP 19–22; TEMP 97.8–100; O2SAT 98–100
[2025-03-22 04:45] LABS: Hematocrit 23.7 % (41.0-53.0); Hemoglobin 7.7 g/dL (13.5-17.5); Mean Corpuscular Hemoglobin 27.5 pg (28.0-32.0); Mean Corpuscular Volume 84.0 fL (80.0-100.0); Nucleated Red Blood Cells % 0.2 %
--- NOTE | 2025-03-22 04:49 | DVH ---
CHEST RADIOGRAPH Indication: reeval lung parenchyma and tube positioning Technique: Single frontal view of the chest was obtained Comparison: XY CHEST PORTABLE on DOS: 03/21/25, XY CHEST PORTABLE on DOS: 03/20/25, XY CHEST PORTABLE on DOS: 03/19/25 IMPRESSION: Right IJ catheter tip in the region of the cavoatrial junction. Enteric tube and endotracheal tube a ppear unchanged in satisfactory position. Probable small left pleural effusion with consolidation or atelectasis of the left lung base. No pneumothorax. The right lung appears clear.
[2025-03-22 05:06] LABS: Anion Gap 9 (5-15); BUN/Creatinine Ratio 27.9 (10.0-20.0); Carbon Dioxide 26 mmol/L (20-31); Chloride 106 mmol/L (98-107); Magnesium 1.9 mg/dL (1.6-2.6); Potassium 3.5 mmol/L (3.5-5.1); Sodium 141 mmol/L (136-145)
[2025-03-22 05:07] LABS: Bilirubin, Total 0.5 mg/dL (0.2-1.0)
[2025-03-22 05:20] LABS: Alanine Aminotransferase 188 U/L (7-40); Albumin 2.3 g/dL (3.2-4.8); Alkaline Phosphatase 332 U/L (46-116); Blood Urea Nitrogen 48 mg/dL (9-23); Calcium 7.4 mg/dL (8.7-10.4); Glucose 116 mg/dL (74-106); Total Protein 5.0 g/dL (5.7-8.2)
[2025-03-22 07:14] LABS: Base Excess -0.1 mmol/L (-2.0-3.0)
--- NOTE | 2025-03-22 10:29 | DVHPN2 ---
Progress Note Date Seen: Mar 22, 2025 Has the PT tested + for MRSA If YES, has PT been informed?: No Medical Necessity Reason Pt with a Central, PICC or Fol: Yes The following are medically ne: Central Line, Barrios Catheter Subjective Review of Systems: Deferred Objective vital signs Vital Sign Date Time Temp Pulse Resp B/P (MAP) Pulse Ox O2 Delivery O2 Flow Rate FiO2 03/22/25 09:31 79 20 142/85 (104) 100 30 03/22/25 08:00 Mechanical Ventilator+ 03/22/25 08:00 100.0 100.0 Total Intake and Output 03/21/25 03/21/25 03/22/25 14:59 22:59 06:59 Intake Total 928.2 ml 728 ml 1048.5 ml Output Total 875 ml 700 ml Balance 928.2 ml -147 ml 348.5 ml medications Current Medications Medications Dose Ordered Sig/Wally Route Start Time Stop Time Status Last Admin Dose Admin Ondansetron HCl 4 mg Q4HP PRN IV 03/12/25 00:00 Hydralazine HCl 10 mg Q6HP PRN IV 03/12/25 17:30 03/20/25 22:27 10 MG Lorazepam 1 mg Q8HP PRN IV 03/12/25 21:45 03/12/25 21:58 1 MG Ceftriaxone Sodium 50 ml @ 100 mls/hr DAILY@09 IV 03/13/25 09:00 03/22/25 08:53 100 MLS/HR Metronidazole 100 ml @ 100 mls/hr Q8HR IV 03/13/25 14:00 03/22/25 04:59 100 MLS/HR Midazolam HCl 100 ml @ 1 mls/hr Q24H IV 03/16/25 16:30 03/22/25 04:59 2 MLS/HR Fentanyl Citrate 250 ml @ 2.5 mls/hr Q24H IV 03/16/25 16:30 03/21/25 20:10 10 MLS/HR Diagnostic Test (Pha) 1 strip Q6HR 03/16/25 18:00 03/22/25 05:15 1 STRIP Insulin Human Regular FOLLOW SLIDING SCALE Q6HR SC 03/16/25 18:00 03/21/25 12:18 2 UNITS Dextrose 50 ml UD IV 03/16/25 17:15 Amino Acids 0 ml @ 0 mls/hr PER PHARMACY IV 03/16/25 17:15 Pantoprazole Sodium 50 ml @ 10 mls/hr Q5H IV 03/16/25 17:15 03/22/25 08:00 10 MLS/HR Folic Acid 1 mg/ Dextrose 50.2 ml @ 200.8 mls/ hr DAILY INJ 03/17/25 10:00 03/21/25 10:50 200.8 MLS/HR Thiamine HCl 100 mg DAILY IV 03/18/25 10:00 03/21/25 09:54 100 MG Atorvastatin Calcium 40 mg HS PO 03/17/25 22:00 Hold Fat Emulsion Intravenous 100 ml/Potassium Acetate 25 meq/ Potassium Phosphate 22 meq/ Calcium Gluconate 4.65 meq/ Magnesium Sulfate 8 meq/ Multivitamins 10 ml/Chromium/ Copper/Manganese/ Zinc 1 ml/Amino Acids/Dextrose/ Purified Water 1,690.5 ml @ 70 mls/hr Q24H9M IV 03/21/25 22:00 03/22/25 21:59 03/21/25 22:14 70 MLS/HR Enteral Nutritional Formula 1,000 ml 20 ML/HR NG 03/21/25 16:00 03/21/25 22:08 1,000 ML Metoclopramide HCl 5 mg Q8HR IV 03/22/25 14:00 Examination: GENERAL:Abnormal, LUNGS:Abnormal, ABDOMEN:Abnormal, SKIN:Abnormal laboratory and microbiology Laboratory Tests 03/22/25 03:30 Test 03/22/25 03:30 Range/Units Serum Glucose 116 H 74-106 mg/dL Microbiology Date/Time Source Procedure Growth Status 03/16/25 16:36 Nose MRSA Screen - Final Complete 03/16/25 16:06 Sputum Gram Stain - Final Complete 03/16/25 16:06 Respiratory Culture - Final Stenotrophomonas maltophilia Escherichia coli Presumptive Milady albicans Complete 03/13/25 11:53 Stool Stool Culture - Final Complete 03/13/25 11:53 Stool Shiga Toxin I & II - Final Complete 03/12/25 11:55 Urine - [place] Urine Culture - Final Complete 03/11/25 15:36 Blood Blood Culture - Final NO GROWTH AFTER 5 DAYS OF INCUBATION. Complete Problem List/Assessment/Plan Problem List/Assessment/Plan 49 years old male with past medical history of CVA, dyslipidemia, hypertension, left knee surgery, Chronic kidney disease, history of severe Acute kidney injury needed inpatient dialysis previous admission here and then renal recovery presented with chief complaints of diarrhea for the past 5 to 6 days, he also has history of perforated duodenal ulcer status post exploratory laparotomy previous admission, cholecystitis, status post tracheostomy Patient presented to emergency room with hemoglobin of 4.2,s/p 3 U prbc,, s/p egd noted findings. Assessment: Acute kidney injury superimposed Chronic Kidney Disease secondary hemodynamic mediated Acute respiratory failure, patient intubated on ventilator hypernatremia due to dehydration Duodenal ulcer leading to GI bleeding and severe anemia, status post 3 PRBC transfusion CVA Recurrent CVA Hypertension C diff diarrhea Severe protein malnutrition/cachexia Hypokalemia Hypophosphatemia Recommendations * cr rising, fluid balance positive, avoid hypotension * Increased urine output * Strict I&Os * Replete potassium and phosphate and magnesium * We will follow up with the patient * Hyponatremia resolved appropriately * We will continue to follow up 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 based on severe wt loss 35lb/24% in 5 month, intake <50% estimated requirement x 5 days, severe muscle wasting and fat depletion Nutrition Recommendation: 1) PPN/TPN if NPO continues 2) Advance to soft diet as medically feasible 3) Ensure Enlive 240ml TID if pt resumes PO diet 4) Monitor NPO status, lab values, weight trend, and I/O Expected Outcomes/Goals: Intake to meet >75% estimated needs GI symptoms to improve Fu 2-3 days Food and Nutrition Intake (Sev: <50% est energy req 5days Interpretation of weight loss: >10% in 6 months Body Fat Depletion (Severe): Mod to Severe Depletion Muscle Mass (Severe): Mod to Severe Depletion Protein Calorie Malnutrition: Severe Is there a minimum of two crit: Yes CC Plasma Assessment Blood Product Administration S: [id number] ISABELLE CASTELLANO MD Mar 22, 2025 10:29
[2025-03-22] MEDS: METOCLOPRAMIDE HCL 5MG/ml INJ 2ml VIAL IV ONE (10:38)
--- NOTE | 2025-03-22 10:58 | MEDREC ---
[facility] Intervention Section I [facility] Intervention: Review courses of therapy (PLEASE CONSIDER REVIEWING COURSE OF THERAPY BASED ON CULTURE RESULTS IF CLINICALLY RELEVANT ) CESAR JANG PHARMACIST Mar 22, 2025 10:58
--- NOTE | 2025-03-22 11:12 | DVHPNRES ---
Progress Note Date Seen: Mar 22, 2025 Resident Creating Document: SKY DASH RESIDENT Has the PT tested + for MRSA If YES, has PT been informed?: No Medical Necessity Reason Pt with a Central, PICC or Fol: Yes The following are medically ne: Central Line, Barrios Catheter Subjective Review of Systems Jossue Perez he is a 49-year-old male past medical history of hypertension, hyperlipidemia, DVT, 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 The patient mentions he had passage of stool 7 times yesterday which was tarry black in color. Patient mentions he also had abdominal pain, nausea and a few episodes of vomiting for the last 2 days. He denies any fever,weakness or weight loss. He reports history of perforated duodenal ulcer s/p exp lap with prolonged ICU stay complicated with sepsis from cholecystitis s/p tracheostomy and removal. On arrival to the hospital, his hemoglobin was 4.2 and he had to be transfused with 2 units of PRBCs. He was kept NPO and NG tube placed. GI was consulted and they recommended continuing with IV Protonix drip scheduled patient for EGD on 03/13/2025. Patient was seen and examined on the bedside. He is on mechanical ventilation with FiO2 30%, Tidal volume 450 mL, respiratory rate 20, peep 5. GI started tube feeding at 20 mL/hours yesterday, the patient has GRV more than 200 mL and chocolate color, started metoclopramide 5 mg Q 8 hours . Hemoglobin drops to 7.7, H&H 7.7/23.7 . No sign of external bleeding and last bowel movement was 03/17. The patient is on Versed 2, fentanyl 125, Protonix drip, TPN and tube feeding at 20 mL/hour. Objective vital signs Vital Sign Date Time Temp Pulse Resp B/P (MAP) Pulse Ox O2 Delivery O2 Flow Rate FiO2 03/22/25 09:31 79 20 142/85 (104) 100 30 03/22/25 08:00 Mechanical Ventilator+ 03/22/25 08:00 100.0 100.0 Total Intake and Output 03/21/25 03/21/25 03/22/25 15:00 23:00 07:00 Intake Total 928.2 ml 829 ml 951.0 ml Output Total 875 ml 700 ml Balance 928.2 ml -46 ml 251.0 ml medications Current Medications Medications Dose Ordered Sig/Wally Route Start Time Stop Time Status Last Admin Dose Admin Ondansetron HCl 4 mg Q4HP PRN IV 03/12/25 00:00 Hydralazine HCl 10 mg Q6HP PRN IV 03/12/25 17:30 03/20/25 22:27 10 MG Lorazepam 1 mg Q8HP PRN IV 03/12/25 21:45 03/12/25 21:58 1 MG Ceftriaxone Sodium 50 ml @ 100 mls/hr DAILY@09 IV 03/13/25 09:00 03/22/25 08:53 100 MLS/HR Metronidazole 100 ml @ 100 mls/hr Q8HR IV 03/13/25 14:00 03/22/25 04:59 100 MLS/HR Midazolam HCl 100 ml @ 1 mls/hr Q24H IV 03/16/25 16:30 03/22/25 04:59 2 MLS/HR Fentanyl Citrate 250 ml @ 2.5 mls/hr Q24H IV 03/16/25 16:30 03/21/25 20:10 10 MLS/HR Diagnostic Test (Pha) 1 strip Q6HR 03/16/25 18:00 03/22/25 05:15 1 STRIP Insulin Human Regular FOLLOW SLIDING SCALE Q6HR SC 03/16/25 18:00 03/21/25 12:18 2 UNITS Dextrose 50 ml UD IV 03/16/25 17:15 Amino Acids 0 ml @ 0 mls/hr PER PHARMACY IV 03/16/25 17:15 Pantoprazole Sodium 50 ml @ 10 mls/hr Q5H IV 03/16/25 17:15 03/22/25 08:00 10 MLS/HR Folic Acid 1 mg/ Dextrose 50.2 ml @ 200.8 mls/ hr DAILY INJ 03/17/25 10:00 03/22/25 10:39 200.8 MLS/HR Thiamine HCl 100 mg DAILY IV 03/18/25 10:00 03/22/25 10:32 100 MG Atorvastatin Calcium 40 mg HS PO 03/17/25 22:00 Hold Fat Emulsion Intravenous 100 ml/Potassium Acetate 25 meq/ Potassium Phosphate 22 meq/ Calcium Gluconate 4.65 meq/ Magnesium Sulfate 8 meq/ Multivitamins 10 ml/Chromium/ Copper/Manganese/ Zinc 1 ml/Amino Acids/Dextrose/ Purified Water 1,690.5 ml @ 70 mls/hr Q24H9M IV 03/21/25 22:00 03/22/25 21:59 03/21/25 22:14 70 MLS/HR Enteral Nutritional Formula 1,000 ml 20 ML/HR NG 03/21/25 16:00 03/21/25 22:08 1,000 ML Metoclopramide HCl 5 mg Q8HR IV 03/22/25 14:00 Examination Examination General: RASS -1, afebrile, mucosae are moist Cardiovascular: Normal S1 and S2. No murmurs, gallops or rubs Respiratory: Mechanically assisted ventilation, equal bilateral airway entree. Clear lung sounds on auscultation Abdomen: Soft, nontender, no organomegaly, normal bowel sounds MSK/skin: Mobilization of limbs cannot be evaluated. Skin is dry and warm. Neurological: Orientation cannot be assessed. No apparent motor no sensitive deficits. Pupils are isocoric and reactive laboratory and microbiology Laboratory Tests 03/22/25 03:30 Test 03/22/25 03:30 Range/Units Serum Glucose 116 H 74-106 mg/dL Microbiology Date/Time Source Procedure Growth Status 03/16/25 16:36 Nose MRSA Screen - Final Complete 03/16/25 16:06 Sputum Gram Stain - Final Complete 03/16/25 16:06 Respiratory Culture - Final Stenotrophomonas maltophilia Escherichia coli Presumptive Milady albicans Complete 03/13/25 11:53 Stool Stool Culture - Final Complete 03/13/25 11:53 Stool Shiga Toxin I & II - Final Complete 03/12/25 11:55 Urine - Barrios Port Urine Culture - Final Complete 03/11/25 15:36 Blood Blood Culture - Final NO GROWTH AFTER 5 DAYS OF INCUBATION. Complete Labs and/or images reviewed: Labs reviewed by me, Image(s) reviewed by me Problem List/Assessment/Plan Problem List/Assessment/Plan Assessment and plan : NEURO: Acute metabolic encephalopathy secondary to acute ischemic stroke Acute or subacute ischemic stroke RASS score: - 1 - CT head without contrast demonstrated new medial right parieto-occipital focal region of diminished parenchymal attenuation within the medial right parietal occipital lobes. This is concerning for an acute to subacute infarct with chronic multifocal lacunar infarct - MRI showed Infarcts involving multiple vascular territories involved medial right occipital lobe, posterior left occipital lobe, and left lopes radiata white matter tracts. Few additional tiny foci of diffusion restriction at the anterior right parietal cortex. - Neurology on board - hold aspirin and Plavix for now because of GI bleeding - hold atorvastatin as patient is NPO CARDIOVASCULAR: Chronic diastolic heart failure with preserved ejection fraction - Echo on 11/12 demonstrated EF 65%, MILD LVH AND MILD LV DIASTOLIC DYSFUNCTION - elevated BNP - CxR showed Bilateral interstitial opacities, small left basilar consolidation and pleural effusion PULMONARY: Acute hypoxic respiratory failure S/P intubation GASTROINTESTINAL: Acute GI bleed upper vs lower Partial small Intestinal obstruction likely secondary to fecal impaction. Cholelithiasis C diff positive Transaminitis likely secondary to low hepatic perfusion -CT abdomen/pelvis showed low-grade distal partial obstruction due to fecal retention. - Gastrograffin study showed Contrast is identified within the colon by 3 hours. No evidence of bowel obstruction. -EGD on 03/13/25 showed 1-2 cm sliding-type hiatal hernia with severe grade C linear erosive esophagitis with esophageal ulcers extending into the distal 15 cm of the esophagus persistent duodenal bulb ulcer seen just inside the pyloric opening which was large coalescing with a visible sutures; there was no active bleeding or visible vessel but there was acute on chronic inflammation deformity of the postbulbar duodenal area and I was able to see the 2nd part of the duodenum but there was area of debris and ongoing chronic ulceration inflammation and the endoscope was not advanced beyond this area mild gastritis and some old coffee-ground within the stomach - NPO - Tube feeding at 20 mL/hours - IV Protonix drip - Zofran 4 mg IV q.4 PRN - IV metoclopramide 5 mg Q 8 hours - IV ceftriaxone 1 gm daily and IV metronidazole 500 mg 8hrly. - GI and surgery are on the board - pending bleeding scan as patient is intubated and on mechanical ventilation - Monitor Hand H, transfuse if hemoglobin less than 7 GENITOURINARY: GIOVANI on CKD likely hemodynamically mediated/VMN - Nephrology on board - Monitor BMP METABOLIC: Hypernatremia Hypokalemia Hypophosphatemia - replaced potassium and phosphate - monitor BMP HEME: Severe microcytic hypochromic anemia due to GI bleeding Iron deficiency due to above - Patient received 4 units of PRBC - Monitor H&H INFECTIOUS DISEASE: Acute C diff infection - hold po vanc because of upper GI bleeding DIET: TPN DVT prophylax: Hold due to GI bleeding GI prophylaxis: Protonix drip Bowel regimen: Code status: Full code LINES/DRAINS/ACCESS: ETT: Intubated on 03/16/2025 IV access: Right IJ placed on 03/16/2025 Drips: Fentanyl, Versed, Protonix drip, TPN, tube feeding Barrios catheter: DISPOSITION: ICU Patient's status discussed with RN, Critical care time spent more than 72 minutes, including patient care, chart review, and updating the family. Excluding any procedures. Case discussed with Dr. Grant Plan discussed with: Spouse, Other (RN) My Orders My Orders Orders - SKY DASH RESIDENT Procedure Category Date Status Time Amino Acid PHA 03/21/25 In Process Infusion... W/Fat 22:00 Tpn Per Pharmacy CINTHIA 03/21/25 In Process 22:00 Metoclopramide PHA 03/22/25 In Process Injection (Reglan 14:00 Dietary Evaluation Review Recommendations by RD: Increase Calorie Intake, PPN/TPN Comments: Pt meets criteria 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 based on severe wt loss 35lb/24% in 5 month, intake <50% estimated requirement x 5 days, severe muscle wasting and fat depletion Nutrition Recommendation: 1) PPN/TPN if NPO continues 2) Advance to soft diet as medically feasible 3) Ensure Enlive 240ml TID if pt resumes PO diet 4) Monitor NPO status, lab values, weight trend, and I/O Expected Outcomes/Goals: Intake to meet >75% estimated needs GI symptoms to improve Fu 2-3 days Food and Nutrition Intake (Sev: <50% est energy req 5days Interpretation of weight loss: >10% in 6 months Body Fat Depletion (Severe): Mod to Severe Depletion Muscle Mass (Severe): Mod to Severe Depletion Protein Calorie Malnutrition: Severe Is there a minimum of two crit: Yes CC Plasma Assessment Blood Product Administration S: [id number] Date of Service: Mar 22, 2025 Billing Provider: HOLLAND GRANT MD Common Visit Codes: [id number] INP/OBS CARE(HIGH) SKY DASH RESIDENT Mar 22, 2025 11:12 HOLLAND GRANT MD Mar 22, 2025 22:31
[2025-03-22] MEDS: METOCLOPRAMIDE HCL 5MG/ml INJ 2ml VIAL IV SCH (14:08)
--- NOTE | 2025-03-22 17:13 | DVHPN2 ---
Progress Note - Dictate Date Seen: Mar 22, 2025 Has the PT tested + for MRSA If YES, has PT been informed?: No Medical Necessity Reason Pt with a Central, PICC or Fol: Yes The following are medically ne: Central Line, Barrios Catheter Subjective Mr. Perez is a 49 years old right-handed gentleman with a history of hypertension, dyslipidemia, multiple strokes, DVT, he was brought to the [facility] on 03/11/2025 with a chief complaint of diarrhea, history is obtained from his , the chart review I saw him on 08/23/2023 for TIA, 10/27/2024 for encephalopathy I have seen and examined the patient, I have talked to his nurse, he is intubated, easily arousable, follows verbal commands. He only moves the left arm Versed 2 mg/hour, fentanyl 125 mcg/hour Stool occult blood, 03/13/2025: Positive UDS, 03/12/2025: Negative Plasma alcohol, 03/12/2025: <3 Urinalysis, 03/12/2025: WBC: One, urine leukocyte esterase: Negative ABG, 03/16/25: Hypoxia, respiratory acidosis WBC/Hb/PLT'/MCV, 03/16/25: 10.l 6/7.9/339/82.4 Na, 03/11/2025: 129, 03/12/2025: 130, 129, 03/15/25: 145, 03/16/25: 142 BUNs/CR, 08/22/2023: 15/1.45, 03/11/2025: 55/1.77, 03/13/2025: 43/1.58, 02/2725: 65/2.56 GFR, 08/22/2023: 59 TBI/AST/ALT/AP,: 0.8/269/450/398 TG/CHO L/LDL/HDL, 08/2023: 136/166/111/39 Vitamin B12, 03/12/25: 852 Folic acid, 03/12/2025: 12.28 TSH, 08/23/2023: 4.25 Extremity venous study, right arm, 11/09/2024: Thrombus is seen in the cephalic vein in the forearm. DONAL, 08/23/2023: 1. No evidence of intracardiac source of embolus in the study conducted today. 2. Normal valves without significant masses or change vegetations were discernible. 3. No evidence of intra-atrial shunting by bubble study and color Doppler. 4. Mild atherosclerotic plaquing was visualized in the arch of the aorta without evidence of dissection in the visualized part EGD, 03/13/2025: 1. 1-2 cm sliding-type hiatal hernia with severe grade C linear erosive esophagitis with esophageal ulcers extending into the distal 15 cm of the esophagus 2. Patient had a persistent duodenal bulb ulcer seen just inside the pyloric opening which was large coalescing with a visible sutures; there was no active bleeding or visible vessel but there was acute on chronic inflammation 3. Patient had deformity of the postbulbar duodenal area and I was able to see the 2nd part of the duodenum but there was area of debris and ongoing chronic ulceration inflammation and the endoscope was not advanced beyond this area 3. Patient had mild gastritis and some old coffee-ground within the stomach Chest x-ray, 03/12/2025: Mild chronic appearing left basilar pulmonary airspace disease and possible small pleural effusion Chest x-ray, 03/13/2025: 1. Enteric tube terminates in the stomach. 2. Worsening bilateral interstitial and alveolar opacities. Chest x-ray, : Endotracheal tube and right IJ approach central venous catheters are in satisfactory position. Trace ogle-zsejqwn-ngqh-right pleural effusions with right retro lower lung zone linear atelectasis/ fluid within the fissure. CT head, 10/24/2024: 1. No intracranial hemorrhage or mass effect. 2. Reog-yc-dyjoosag chronic microvascular ischemic changes. 3. Old bilateral basal ganglia lacunar infarcts. 4. Small bilateral mastoid effusions. CT head, 03/17/2025: 1. New medial right parieto-occipital focal region of diminished parenchymal attenuation within the medial right parietal occipital lobes. This is concerning for an acute to subacute infarct. Recommend further evaluation with MRI. 2. No evidence of acute intracranial hemorrhage, mass effect or hydrocephalus. 3. Chronic sequelae of microangiopathy and atrophic cortical volume loss.4. Multifocal chronic lacunar infarcts as outlined above. CT abdomen/pelvis, 10/04/2024: 1. Extensive intra-abdominal free air concerning for perforated viscus. Surgical consultation is recommended. 2. Enteritis is seen in multiple loops of small bowel in the left hemiabdomen. 3. Moderate abdominopelvic ascites. 4. Small right pleural effusion. CTA neck, head, 08/22/2023:1. CTA head demonstrates no evidence of large vessel occlusion, aneurysm, or significant stenosis. 2. CTA neck demonstrates no evidence of carotid or vertebral dissection or significant stenosis. 3. No noncontrast CT head was performed. 4. Additional findings as detailed above MRI head, 08/23/2023: No acute infarct, intracranial hemorrhage, mass effect, or hydrocephalus. Moderate periventricular and deep subcortical white matter T2 hyperintensities which are nonspecific, but most likely related to sequela of chronic microvascular ischemic changes (I have reviewed the MRI films with our in-house radiologist, Dr. Black, the patient had bilateral multiple subacute/chronic infarcts) MRI head, 11/01/2024: No acute cerebrovascular ischemia. Kftv-ag-guxiwjyt chronic microvascular ischemic changes. Bilateral mastoid effusions. Old bilateral basal ganglia / lopes radiata infarcts. MR head, 03/16/2025: Infarcts involving multiple vascular territories as described. vital signs Vital Sign Date Time Temp Pulse Resp B/P (MAP) Pulse Ox O2 Delivery O2 Flow Rate FiO2 03/22/25 15:22 76 20 128/73 (91) 100 30 03/22/25 14:00 Mechanical Ventilator+ 03/22/25 12:00 98.7 98.7 Total Intake and Output 03/21/25 03/21/25 03/22/25 15:00 23:00 07:00 Intake Total 928.2 ml 829 ml 951.0 ml Output Total 875 ml 700 ml Balance 928.2 ml -46 ml 251.0 ml medications Current Medications Medications Dose Ordered Sig/Wally Route Start Time Stop Time Status Last Admin Dose Admin Ondansetron HCl 4 mg Q4HP PRN IV 03/12/25 00:00 Hydralazine HCl 10 mg Q6HP PRN IV 03/12/25 17:30 03/20/25 22:27 10 MG Lorazepam 1 mg Q8HP PRN IV 03/12/25 21:45 03/12/25 21:58 1 MG Ceftriaxone Sodium 50 ml @ 100 mls/hr DAILY@09 IV 03/13/25 09:00 03/22/25 08:53 100 MLS/HR Metronidazole 100 ml @ 100 mls/hr Q8HR IV 03/13/25 14:00 03/22/25 14:03 100 MLS/HR Midazolam HCl 100 ml @ 1 mls/hr Q24H IV 03/16/25 16:30 03/22/25 04:59 2 MLS/HR Fentanyl Citrate 250 ml @ 2.5 mls/hr Q24H IV 03/16/25 16:30 03/22/25 15:17 12.5 MLS/HR Diagnostic Test (Pha) 1 strip Q6HR 03/16/25 18:00 03/22/25 11:59 1 STRIP Insulin Human Regular FOLLOW SLIDING SCALE Q6HR SC 03/16/25 18:00 03/21/25 12:18 2 UNITS Dextrose 50 ml UD IV 03/16/25 17:15 Amino Acids 0 ml @ 0 mls/hr PER PHARMACY IV 03/16/25 17:15 Pantoprazole Sodium 50 ml @ 10 mls/hr Q5H IV 03/16/25 17:15 03/22/25 14:08 10 MLS/HR Folic Acid 1 mg/ Dextrose 50.2 ml @ 200.8 mls/ hr DAILY INJ 03/17/25 10:00 03/22/25 10:39 200.8 MLS/HR Thiamine HCl 100 mg DAILY IV 03/18/25 10:00 03/22/25 10:32 100 MG Atorvastatin Calcium 40 mg HS PO 03/17/25 22:00 Hold Fat Emulsion Intravenous 100 ml/Potassium Acetate 25 meq/ Potassium Phosphate 22 meq/ Calcium Gluconate 4.65 meq/ Magnesium Sulfate 8 meq/ Multivitamins 10 ml/Chromium/ Copper/Manganese/ Zinc 1 ml/Amino Acids/Dextrose/ Purified Water 1,690.5 ml @ 70 mls/hr Q24H9M IV 03/21/25 22:00 03/22/25 21:59 03/21/25 22:14 70 MLS/HR Enteral Nutritional Formula 1,000 ml 20 ML/HR NG 03/21/25 16:00 03/21/25 22:08 1,000 ML Metoclopramide HCl 5 mg Q8HR IV 03/22/25 14:00 03/22/25 14:08 5 MG Fat Emulsion Intravenous 100 ml/Potassium Acetate 30 meq/ Potassium Phosphate 22 meq/ Calcium Gluconate 4.65 meq/ Magnesium Sulfate 8 meq/ Multivitamins 10 ml/Chromium/ Copper/Manganese/ Zinc 1 ml/Amino Acids/Dextrose/ Purified Water 1,693 ml @ 70 mls/hr [id number] IV 03/22/25 22:00 03/23/25 21:59 objective The patient is well-nourished and well-developed with no distress. The patient is intubated MENTAL STATUS: Subjective CRANIAL NERVES: Pupils are equal, round and reactive. There is conjugated eye movement. Motor sensory examination on bilateral trigeminal distribution is fine, No signs of facial weakness. There are gagging or coughing reflexes oral and airway care SENSATION: Okay to touch MOTOR: Normal tone in the upper and lower extremity. Normal muscle bulk. No fasciculations. Moves the left arm REFLEXES: Deep tendon reflexes are symmetrical. No pathological reflexes. CEREBELLAR/COORDINATION: Deferred GAIT/STATION: deferred. laboratory and microbiology Laboratory Tests 03/22/25 03:30 Test 03/22/25 03:30 Range/Units Serum Glucose 116 H 74-106 mg/dL Problem List Altered mental status Metabolic encephalopathy secondary to sepsis, septic shock, hypernatremia Hypoxic encephalopathy Peptic ulcer, GI bleeding, anemia Respiratory failure New multiple strokes in different arterial territories (MRI 03/18/25) Multiple chronic strokes Maybe secondary to history methamphetamine, cocaine, alcohol use History of alcohol abuse History of cocaine, methamphetamine abuse Assessment/Plan Monitoring Supportive treatment ICU care Stabilize vitals Respiratory support/vent management Follow-up labs IV antibiotics Aspirin 81 mg daily later Lipitor later TPN Thiamine supplementation Folic acid supplementation GI service on case Nephrology service on case More recommended per clinical course This medical document was created using an electronic medical record system with [employer] dictation system. Although this document has been carefully reviewed, there may still be some phonetic and typographical errors. These areas are purely typographical due to imperfect Prognosis Guarded Dietary Evaluation Review Recommendations by RD: Increase Calorie Intake, PPN/TPN Comments: Pt meets criteria 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 based on severe wt loss 35lb/24% in 5 month, intake <50% estimated requirement x 5 days, severe muscle wasting and fat depletion Nutrition Recommendation: 1) PPN/TPN if NPO continues 2) Advance to soft diet as medically feasible 3) Ensure Enlive 240ml TID if pt resumes PO diet 4) Monitor NPO status, lab values, weight trend, and I/O Expected Outcomes/Goals: Intake to meet >75% estimated needs GI symptoms to improve Fu 2-3 days Food and Nutrition Intake (Sev: <50% est energy req 5days Interpretation of weight loss: >10% in 6 months Body Fat Depletion (Severe): Mod to Severe Depletion Muscle Mass (Severe): Mod to Severe Depletion Protein Calorie Malnutrition: Severe Is there a minimum of two crit: Yes Plan discussed with: Other CC Plasma Assessment Blood Product Administration S: [id number] LEANDRO BLACK MD Mar 22, 2025 17:13
[2025-03-22] MEDS: TPN PER PHARMACY IV NR (22:17)
--- NOTE | 2025-03-22 23:27 | DVHPN2 ---
Subjective DOS: 03/22/2025 Patient seen and examined at bedside. Sedated, intubated on mechanical ventilator. Overnight events reviewed. Changes from previous H/P or p: No Changes Eyes: No Pain, No Vision change, No Conjunctivae inflammation, No Eyelid inflammation, No Other, No Redness ENT: No Ear pain, No Ear discharge, No Nose pain, No Nose discharge, No Nose congestion, No Mouth pain, No Mouth swelling, No Throat pain, No Throat swelling, No Other Cardiovascular: No Chest Pain, No Palpitations, No Orthopnea, No Paroxysmal Noc. Dyspnea, No Edema, No Lt Headedness, No Other Respiratory: No Cough, No Dry, No Shortness of breath, No SOB with excertion, No Wheezing, No Hemoptysis, No Pleuritic Pain, No Sputum, No Other Gastrointestinal: Melena Musculoskeletal: No other, No neck pain, No shoulder pain, No arm pain, No back pain, No hand pain, No leg pain, No foot pain Skin: No Rash, No Lesions, No Jaundice, No Bruising, No Other Objective Vitals Vital Signs Date Time Temp Pulse Resp B/P (MAP) Pulse Ox O2 Delivery O2 Flow Rate FiO2 03/22/25 22:09 78 20 147/86 (106) 100 30 03/22/25 18:00 Mechanical Ventilator+ 03/22/25 16:00 98.4 98.4 Intake/Output Intake and Output 03/22/25 07:00 Intake Total 2708.2 ml Output Total 1575 ml Balance 1133.2 ml Intake Oral 100 ml IV Total 2608.2 ml Output Urine Total 1475 ml Drainage Total 100 ml Exam Gen.: Patient lying in bed in medical ICU. Sedated, intubated on mechanical ventilator. Head: Normocephalic, atraumatic. Eyes: PERRLA. Ears: Normal external anatomy. Throat: Endotracheal tube and orogastric tube in place. Neck: Supple, trachea midline. Chest: Transmitted breath sounds bilaterally. Decreased air entry bilaterally. No wheezing. Bibasilar crackles. Cardiovascular: Positive S1, positive S2. Regular rate and rhythm. Abdomen: Positive bowel sounds in all 4 quadrants. Soft, nontender, nondistended. : Barrios in place. Normal external genitalia. Rectal: Deferred. Skin: Warm, dry. Intact. Extremities: 2+ radial pulses bilaterally. No lower extremity edema. Neuro: Sedated. Medications Current Medications Medications Dose Ordered Sig/Wally Route Start Time Stop Time Status Last Admin Dose Admin Ondansetron HCl 4 mg Q4HP PRN IV 03/12/25 00:00 Hydralazine HCl 10 mg Q6HP PRN IV 03/12/25 17:30 03/20/25 22:27 10 MG Lorazepam 1 mg Q8HP PRN IV 03/12/25 21:45 03/12/25 21:58 1 MG Ceftriaxone Sodium 50 ml @ 100 mls/hr DAILY@09 IV 03/13/25 09:00 03/22/25 08:53 100 MLS/HR Metronidazole 100 ml @ 100 mls/hr Q8HR IV 03/13/25 14:00 03/22/25 22:14 100 MLS/HR Midazolam HCl 100 ml @ 1 mls/hr Q24H IV 03/16/25 16:30 03/22/25 04:59 2 MLS/HR Fentanyl Citrate 250 ml @ 2.5 mls/hr Q24H IV 03/16/25 16:30 03/22/25 15:17 12.5 MLS/HR Diagnostic Test (Pha) 1 strip Q6HR 03/16/25 18:00 03/22/25 17:48 1 STRIP Insulin Human Regular FOLLOW SLIDING SCALE Q6HR SC 03/16/25 18:00 03/21/25 12:18 2 UNITS Dextrose 50 ml UD IV 03/16/25 17:15 Amino Acids 0 ml @ 0 mls/hr PER PHARMACY IV 03/16/25 17:15 Pantoprazole Sodium 50 ml @ 10 mls/hr Q5H IV 03/16/25 17:15 03/22/25 20:17 10 MLS/HR Folic Acid 1 mg/ Dextrose 50.2 ml @ 200.8 mls/ hr DAILY INJ 03/17/25 10:00 03/22/25 10:39 200.8 MLS/HR Thiamine HCl 100 mg DAILY IV 03/18/25 10:00 03/22/25 10:32 100 MG Atorvastatin Calcium 40 mg HS PO 03/17/25 22:00 Hold Enteral Nutritional Formula 1,000 ml 20 ML/HR NG 03/21/25 16:00 03/21/25 22:08 1,000 ML Metoclopramide HCl 5 mg Q8HR IV 03/22/25 14:00 03/22/25 22:14 5 MG Fat Emulsion Intravenous 100 ml/Potassium Acetate 30 meq/ Potassium Phosphate 22 meq/ Calcium Gluconate 4.65 meq/ Magnesium Sulfate 8 meq/ Multivitamins 10 ml/Chromium/ Copper/Manganese/ Zinc 1 ml/Amino Acids/Dextrose/ Purified Water 1,693 ml @ 70 mls/hr [id number] IV 03/22/25 22:00 03/23/25 21:59 03/22/25 22:17 70 MLS/HR Laboratory Results Laboratory Tests 03/22/25 03:30 Chemistry Test 03/22/25 03:30 Albumin 2.3 g/dL (3.2-4.8) L Calcium Level 7.4 mg/dL (8.7-10.4) L Magnesium Level 1.9 mg/dL (1.6-2.6) Phosphorus Level 3.3 mg/dL (2.4-5.1) Total Protein 5.0 g/dL (5.7-8.2) L LFT Test 03/22/25 03:30 Alanine Aminotransferase (ALT) 188 U/L (7-40) H Alkaline Phosphatase 332 U/L (46-116) H Aspartate Amino Transferase (AST) 74 U/L (13-40) H Total Bilirubin 0.5 mg/dL (0.2-1.0) Urinalysis Test 03/12/25 05:00 03/12/25 10:20 03/17/25 06:30 Urine Color Light-yellow (Yellow) Urine Clarity Clear (Clear) Urine pH 5.5 (5.0-9.0) Urine Specific [place] 1.013 (1.001-1.035) Urine Protein Trace (Negative) H Urine Ketones Trace (Negative) Urine Blood Negative /uL (Negative) Urine Nitrite Negative (Negative) Urine Bilirubin Negative (Negative) Urine Urobilinogen Normal mg/dL (Negative) Urine Leukocyte Esterase Negative /uL (Negative) Urine RBC <1 /hpf (0 - 3) Urine Microscopic WBC < 1 /HPF (0-3) Urine Squamous Epithelial Cells None seen /hpf (<5) Urine Bacteria None seen /hpf (None Seen) Urine Glucose Normal mg/dL (Normal) Urine Protein/Creatinine Ratio 2.26 Urine Total Protein 23.6 mg/dL (1-14) H Urine Creatinine 56.14 mg/dL (30.0-125.0) Urine Sodium 13 mmol/L (40-220) L Blood Gas Results Test 03/22/25 07:09 Arterial Blood pH 7.366 (7.350-7.450) FiO2 % 30.0 Microbiology Microbiology Date/Time Source Procedure Growth Status 03/16/25 16:36 Nose MRSA Screen - Final Complete 03/16/25 16:06 Sputum Gram Stain - Final Complete 03/16/25 16:06 Respiratory Culture - Final Stenotrophomonas maltophilia Escherichia coli Presumptive Milady albicans Complete 03/13/25 11:53 Stool Stool Culture - Final Complete 03/13/25 11:53 Stool Shiga Toxin I & II - Final Complete 03/12/25 11:55 Urine - Barrios [place] Urine Culture - Final Complete 03/11/25 15:36 Blood Blood Culture - Final NO GROWTH AFTER 5 DAYS OF INCUBATION. Complete Assessment/Plan Assessment/Plan Impression: Acute hypoxic respiratory failure On mechanical ventilator Acute metabolic encephalopathy Multiple strokes Chronic diastolic heart failure with preserved EF GI hemorrhage Anemia GIOVANI on CKD Events: Remains on vent support On AC mode; RR 20, VT 500, PEEP 5, FiO2 30% Taper FiO2 as tolerated Sedated on Versed, Fentanyl Continue antibiotics Continue IV fluids Continue Protonix drip Hemoglobin trended down to 7.7 g/dL Monitor hemoglobin Transfuse if less than 7.0 g/dL. TPN/tube feeds for nutritional support Labs and imaging reviewed. Rest of plan as noted below. Plan: s/p intubation on mechanical ventilator. On AC mode; RR 20, VT 500, PEEP 5, FiO2 30% Titrate FIO2 to keep O2 saturation above 90%. VAP bundle. Daily ABG and CXR while intubated Sedate for ventilator synchrony Continue antibiotics. Follow up cultures. Pressors as necessary for hemodynamic support Titrate to keep mean arterial pressure greater than 65 mmHg. Monitor hemoglobin Transfuse if less than 7.0 g/dL. NGT to LIS Protonix drip F/u GI and Surgery recs Accu-Cheks, ISS PRN Monitor renal function Monitor electrolytes. Supplement as necessary. Monitor ins and outs. Maintain euvolemia. TPN for nutritional support Counseled against vaping and marijuana use. GI prophylaxis. DVT prophylaxis. Prognosis: Poor given patient's multiple co-morbidities. Condition: Critical Rest of plan per hospitalist and other consultants. A total of 35 minutes of critical care time was spent reviewing the patient record, examining the patient, making a diagnostic and therapeutic plan, discussing this plan with the medical personnel, following up on diagnostic studies and following the patient for clinical stability excluding any and all procedures. At least 50% of this time was spent in direct, [id number] contact. Thank you, Dr. hKoury, for allowing me to participate in this patient's care. Further recommendations will depend on the patient's clinical course. Please do not hesitate to contact me if you have any questions or concerns. This medical document was created using an electronic medical record system with [employer] dictation system. Although these documentations are being carefully reviewed, there may still be some phonetic and typographical changes. The errors are purely typographical, due to imperfection on the software program, and do not reflect any compromise in the patient's medical care. Plan discussed with: Other (JASPER Garza) My Orders Orders - ARIE LOPEZ MD Procedure Category Date Status Time Abg W/ Co-Ox RT 03/22/25 Logged 04:35 Visit Coding Pulmonary Billing Provider: ARIE LOPEZ MD Date of Service if different f: Mar 22, 2025 Common Visit Codes: 98675-[id number] INP/OBS CARE(HIGH), 37176-[id number] CARE 30-74 MIN ARIE LOPEZ MD Mar 22, 2025 23:27
[2025-03-23] VITALS (100 sets, daily range): BP systolic 108–182; BP diastolic 57–103; PULSE 63–119; RESP 16–33; TEMP 97.5–99.3; O2SAT 96–100
[2025-03-23 03:40] LABS: Nucleated Red Blood Cells % 0.0 %
[2025-03-23 03:43] LABS: Hematocrit 22.3 % (41.0-53.0); Hemoglobin 7.3 g/dL (13.5-17.5); Mean Corpuscular Hemoglobin 27.7 pg (28.0-32.0); Mean Corpuscular Volume 84.2 fL (80.0-100.0)
[2025-03-23 04:13] LABS: Anion Gap 10 (5-15); BUN/Creatinine Ratio 29.3 (10.0-20.0); Carbon Dioxide 26 mmol/L (20-31); Chloride 106 mmol/L (98-107); Magnesium 2.2 mg/dL (1.6-2.6); Sodium 142 mmol/L (136-145)
[2025-03-23 04:14] LABS: Bilirubin, Total 0.4 mg/dL (0.2-1.0)
[2025-03-23 04:31] LABS: Alanine Aminotransferase 157 U/L (7-40); Albumin 2.4 g/dL (3.2-4.8); Alkaline Phosphatase 521 U/L (46-116); Blood Urea Nitrogen 41 mg/dL (9-23); Calcium 8.0 mg/dL (8.7-10.4); Glucose 106 mg/dL (74-106); Potassium 3.3 mmol/L (3.5-5.1); Total Protein 5.5 g/dL (5.7-8.2)
--- NOTE | 2025-03-23 04:42 | DVH ---
CHEST RADIOGRAPH Indication: Mechanical ventilation Technique: Single frontal view of the chest was obtained COMPARISON: XY CHEST XRAY 1 VIEW on DOS: 03/22/25, XY CHEST PORTABLE on DOS: 03/21/25, XY CHEST PORTABL E on DOS: 03/20/25, XY CHEST PORTABLE on DOS: 03/19/25, XY CHEST PORTABLE on DOS: 03/18/25 FINDINGS: Lines and Tubes: Slight interval retraction of the endotracheal tube such that the tip now projects a pproximately 4.2 cm above the level of the [place]. Remaining lines and tubes unchanged. Lungs: Stable appearing small left pleural effusion. Mild diffuse increased prominence of the pulmon chayito vasculature. No pneumothorax. Cardiomediastinal contours: Unremarkable Bones: Unremarkable IMPRESSION: 1. Slight interval retraction of the endotracheal tube such that the tip now projects approximately 4 .2 cm above the level of the [place]. Remaining lines and tubes unchanged. 2. Small left pleural effusion and diffuse increased prominence of the pulmonary vasculature.
[2025-03-23 07:03] LABS: Base Excess -3.3 mmol/L (-2.0-3.0)
[2025-03-23] MEDS: POTASSIUM CHL 20MEQ/100ML 100 ML IV SCH (07:12)
--- NOTE | 2025-03-23 08:37 | DVHPN2 ---
Progress Note Date Seen: Mar 23, 2025 Resident Creating Document: RONALDO RAWLS NICOLE Has the PT tested + for MRSA If YES, has PT been informed?: No Medical Necessity Reason Pt with a Central, PICC or Fol: Yes The following are medically ne: Central Line, Barrios Catheter Subjective Review of Systems General: RASS -1, afebrile, mucosae are dry, cachectic Cardiovascular: Normal S1 and S2. No murmurs, gallops or rubs Respiratory: Mechanically assisted ventilation, equal bilateral airway entree. Clear lung sounds on auscultation Mechanical ventilation setting: GI: Soft, nontender, no organomegaly, normal bowel sounds : Barrios catheter n place, clear yellow urine in collection bag MSK/skin: Mobilization of limbs cannot be evaluated. Skin is dry and warm. IV accesses: Neurological: Orientation cannot be assessed. No apparent motor no sensitive deficits. Pupils are isocoric and reactive Review of Systems: RESPIRATORY:Abnormal Other Systems: Patient seen and examined by myself today on rounds with the medicine resident, I agree with his assessment and plan Patient remained intubated on ventilator Objective vital signs Vital Sign Date Time Temp Pulse Resp B/P (MAP) Pulse Ox O2 Delivery O2 Flow Rate FiO2 03/23/25 07:20 91 22 150/81 (104) 100 30 03/23/25 06:00 Mechanical Ventilator+ 03/23/25 04:00 98.9 98.9 Total Intake and Output 03/22/25 03/22/25 03/23/25 15:00 23:00 07:00 Intake Total 846.2 ml 896.0 ml 900.5 ml Output Total 775 ml 725 ml Balance 846.2 ml 121.0 ml 175.5 ml medications Current Medications Medications Dose Ordered Sig/Wally Route Start Time Stop Time Status Last Admin Dose Admin Ondansetron HCl 4 mg Q4HP PRN IV 03/12/25 00:00 Hydralazine HCl 10 mg Q6HP PRN IV 03/12/25 17:30 03/23/25 05:19 10 MG Lorazepam 1 mg Q8HP PRN IV 03/12/25 21:45 03/12/25 21:58 1 MG Ceftriaxone Sodium 50 ml @ 100 mls/hr DAILY@09 IV 03/13/25 09:00 03/22/25 08:53 100 MLS/HR Metronidazole 100 ml @ 100 mls/hr Q8HR IV 03/13/25 14:00 03/23/25 05:44 100 MLS/HR Midazolam HCl 100 ml @ 1 mls/hr Q24H IV 03/16/25 16:30 03/22/25 04:59 2 MLS/HR Fentanyl Citrate 250 ml @ 2.5 mls/hr Q24H IV 03/16/25 16:30 03/22/25 15:17 12.5 MLS/HR Diagnostic Test (Pha) 1 strip Q6HR 03/16/25 18:00 03/23/25 05:49 1 STRIP Insulin Human Regular FOLLOW SLIDING SCALE Q6HR SC 03/16/25 18:00 03/21/25 12:18 2 UNITS Dextrose 50 ml UD IV 03/16/25 17:15 Amino Acids 0 ml @ 0 mls/hr PER PHARMACY IV 03/16/25 17:15 Pantoprazole Sodium 50 ml @ 10 mls/hr Q5H IV 03/16/25 17:15 03/23/25 05:44 10 MLS/HR Folic Acid 1 mg/ Dextrose 50.2 ml @ 200.8 mls/ hr DAILY INJ 03/17/25 10:00 03/22/25 10:39 200.8 MLS/HR Thiamine HCl 100 mg DAILY IV 03/18/25 10:00 03/22/25 10:32 100 MG Atorvastatin Calcium 40 mg HS PO 03/17/25 22:00 Hold Enteral Nutritional Formula 1,000 ml 20 ML/HR NG 03/21/25 16:00 03/21/25 22:08 1,000 ML Metoclopramide HCl 5 mg Q8HR IV 03/22/25 14:00 03/23/25 05:45 5 MG Fat Emulsion Intravenous 100 ml/Potassium Acetate 30 meq/ Potassium Phosphate 22 meq/ Calcium Gluconate 4.65 meq/ Magnesium Sulfate 8 meq/ Multivitamins 10 ml/Chromium/ Copper/Manganese/ Zinc 1 ml/Amino Acids/Dextrose/ Purified Water 1,693 ml @ 70 mls/hr [id number] IV 03/22/25 22:00 03/23/25 21:59 03/22/25 22:17 70 MLS/HR Potassium Chloride 100 ml @ 50 mls/hr Q2H IV 03/23/25 06:00 03/23/25 09:59 03/23/25 07:12 50 MLS/HR Examination General: RASS -1, afebrile, mucosae are dry, cachectic Cardiovascular: Normal S1 and S2. No murmurs, gallops or rubs Respiratory: Mechanically assisted ventilation, equal bilateral airway entree. Clear lung sounds on auscultation Mechanical ventilation setting: GI: Soft, nontender, no organomegaly, normal bowel sounds : Barrios catheter n place, clear yellow urine in collection bag MSK/skin: Mobilization of limbs cannot be evaluated. Skin is dry and warm. IV accesses: Neurological: Orientation cannot be assessed. No apparent motor no sensitive deficits. Pupils are isocoric and reactive laboratory and microbiology Laboratory Tests 03/23/25 02:40 Test 03/23/25 02:40 Range/Units Serum Glucose 106 74-106 mg/dL Microbiology Date/Time Source Procedure Growth Status 03/16/25 16:36 Nose MRSA Screen - Final Complete 03/16/25 16:06 Sputum Gram Stain - Final Complete 03/16/25 16:06 Respiratory Culture - Final Stenotrophomonas maltophilia Escherichia coli Presumptive Milady albicans Complete 03/13/25 11:53 Stool Stool Culture - Final Complete 03/13/25 11:53 Stool Shiga Toxin I & II - Final Complete 03/12/25 11:55 Urine - [place] Urine Culture - Final Complete 03/11/25 15:36 Blood Blood Culture - Final NO GROWTH AFTER 5 DAYS OF INCUBATION. Complete Problem List/Assessment/Plan Problem List/Assessment/Plan 49 years old male with past medical history of CVA, dyslipidemia, hypertension, left knee surgery, Chronic kidney disease, history of severe Acute kidney injury needed inpatient dialysis previous admission here and then renal recovery presented with chief complaints of diarrhea for the past 5 to 6 days, he also has history of perforated duodenal ulcer status post exploratory laparotomy previous admission, cholecystitis, status post tracheostomy Patient presented to emergency room with hemoglobin of 4.2,s/p 3 U prbc,, s/p egd noted findings. Assessment: GIOVANI, on CKD 2, VMN Hypovolemic hypernatremia/dehydration Duodenal ulcer leading to GI bleeding and severe anemia, status post 3 PRBC transfusion History of CVA Recurrent CVA Hypertension C diff diarrhea Severe protein malnutrition/cachexia Hypokalemia Hypophosphatemia Plan/recommendation: (Dr. Anderson) * Kidney function is improving * Na level normalized properly, DC 1/2 NS * Replete potassium * Good urine output * Strict I&Os * We will follow up with the patient Thank you for giving us the opportunity to take care of the outpatient. Please call back if you have any questions/concerns. Plan discussed with: Other (RN) Dietary Evaluation Review Recommendations by RD: Increase Calorie Intake, PPN/TPN Comments: Pt meets criteria 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 based on severe wt loss 35lb/24% in 5 month, intake <50% estimated requirement x 5 days, severe muscle wasting and fat depletion Nutrition Recommendation: 1) PPN/TPN if NPO continues 2) Advance to soft diet as medically feasible 3) Ensure Enlive 240ml TID if pt resumes PO diet 4) Monitor NPO status, lab values, weight trend, and I/O Expected Outcomes/Goals: Intake to meet >75% estimated needs GI symptoms to improve Fu 2-3 days Food and Nutrition Intake (Sev: <50% est energy req 5days Interpretation of weight loss: >10% in 6 months Body Fat Depletion (Severe): Mod to Severe Depletion Muscle Mass (Severe): Mod to Severe Depletion Protein Calorie Malnutrition: Severe Is there a minimum of two crit: Yes CC Plasma Assessment Blood Product Administration S: [id number] RONALDO RAWLS Mar 23, 2025 08:37 MILADY ANDERSON MD Mar 23, 2025 11:29
--- NOTE | 2025-03-23 09:32 | DVHPN2 ---
Progress Note - Dictate Date Seen: Mar 23, 2025 Has the PT tested + for MRSA If YES, has PT been informed?: No Medical Necessity Reason Pt with a Central, PICC or Fol: Yes The following are medically ne: Central Line, Barrios Catheter Subjective Mr. Perez is a 49 years old right-handed gentleman with a history of hypertension, dyslipidemia, multiple strokes, DVT, he was brought to the [facility] on 03/11/2025 with a chief complaint of diarrhea, history is obtained from his , the chart review I saw him on 08/23/2023 for TIA, 10/27/2024 for encephalopathy I have seen and examined the patient, I have talked to his nurse, he is intubated, awake, follows verbal commands. He looks weak He only moves the left arm Versed 2 mg/hour, fentanyl 125 mcg/hour Stool occult blood, 03/13/2025: Positive UDS, 03/12/2025: Negative Plasma alcohol, 03/12/2025: <3 Urinalysis, 03/12/2025: WBC: One, urine leukocyte esterase: Negative ABG, 03/16/25: Hypoxia, respiratory acidosis WBC/Hb/PLT'/MCV, 03/16/25: 10.l 6/7.9/339/82.4 Na, 03/11/2025: 129, 03/12/2025: 130, 129, 03/15/25: 145, 03/16/25: 142 BUNs/CR, 08/22/2023: 15/1.45, 03/11/2025: 55/1.77, 03/13/2025: 43/1.58, 02/2725: 65/2.56 GFR, 08/22/2023: 59 TBI/AST/ALT/AP,: 0.8/269/450/398 TG/CHO L/LDL/HDL, 08/2023: 136/166/111/39 Vitamin B12, 03/12/25: 852 Folic acid, 03/12/2025: 12.28 TSH, 08/23/2023: 4.25 Extremity venous study, right arm, 11/09/2024: Thrombus is seen in the cephalic vein in the forearm. DONAL, 08/23/2023: 1. No evidence of intracardiac source of embolus in the study conducted today. 2. Normal valves without significant masses or change vegetations were discernible. 3. No evidence of intra-atrial shunting by bubble study and color Doppler. 4. Mild atherosclerotic plaquing was visualized in the arch of the aorta without evidence of dissection in the visualized part EGD, 03/13/2025: 1. 1-2 cm sliding-type hiatal hernia with severe grade C linear erosive esophagitis with esophageal ulcers extending into the distal 15 cm of the esophagus 2. Patient had a persistent duodenal bulb ulcer seen just inside the pyloric opening which was large coalescing with a visible sutures; there was no active bleeding or visible vessel but there was acute on chronic inflammation 3. Patient had deformity of the postbulbar duodenal area and I was able to see the 2nd part of the duodenum but there was area of debris and ongoing chronic ulceration inflammation and the endoscope was not advanced beyond this area 3. Patient had mild gastritis and some old coffee-ground within the stomach Chest x-ray, 03/12/2025: Mild chronic appearing left basilar pulmonary airspace disease and possible small pleural effusion Chest x-ray, 03/13/2025: 1. Enteric tube terminates in the stomach. 2. Worsening bilateral interstitial and alveolar opacities. Chest x-ray, : Endotracheal tube and right IJ approach central venous catheters are in satisfactory position. Trace dmla-[id number]-right pleural effusions with right retro lower lung zone linear atelectasis/ fluid within the fissure. CT head, 10/24/2024: 1. No intracranial hemorrhage or mass effect. 2. [id number] chronic microvascular ischemic changes. 3. Old bilateral basal ganglia lacunar infarcts. 4. Small bilateral mastoid effusions. CT head, 03/17/2025: 1. New medial right parieto-occipital focal region of diminished parenchymal attenuation within the medial right parietal occipital lobes. This is concerning for an acute to subacute infarct. Recommend further evaluation with MRI. 2. No evidence of acute intracranial hemorrhage, mass effect or hydrocephalus. 3. Chronic sequelae of microangiopathy and atrophic cortical volume loss.4. Multifocal chronic lacunar infarcts as outlined above. CT abdomen/pelvis, 10/04/2024: 1. Extensive intra-abdominal free air concerning for perforated viscus. Surgical consultation is recommended. 2. Enteritis is seen in multiple loops of small bowel in the left hemiabdomen. 3. Moderate abdominopelvic ascites. 4. Small right pleural effusion. CTA neck, head, 08/22/2023:1. CTA head demonstrates no evidence of large vessel occlusion, aneurysm, or significant stenosis. 2. CTA neck demonstrates no evidence of carotid or vertebral dissection or significant stenosis. 3. No noncontrast CT head was performed. 4. Additional findings as detailed above MRI head, 08/23/2023: No acute infarct, intracranial hemorrhage, mass effect, or hydrocephalus. Moderate periventricular and deep subcortical white matter T2 hyperintensities which are nonspecific, but most likely related to sequela of chronic microvascular ischemic changes (I have reviewed the MRI films with our in-house radiologist, Dr. Black, the patient had bilateral multiple subacute/chronic infarcts) MRI head, 11/01/2024: No acute cerebrovascular ischemia. [id number] chronic microvascular ischemic changes. Bilateral mastoid effusions. Old bilateral basal ganglia / lopes radiata infarcts. MR head, 03/16/2025: Infarcts involving multiple vascular territories as described. vital signs Vital Sign Date Time Temp Pulse Resp B/P (MAP) Pulse Ox O2 Delivery O2 Flow Rate FiO2 03/23/25 09:01 96 20 147/83 (104) 100 30 03/23/25 06:00 Mechanical Ventilator+ 03/23/25 04:00 98.9 98.9 Total Intake and Output 03/22/25 03/22/25 03/23/25 14:59 22:59 06:59 Intake Total 846.2 ml 796.0 ml 1095.0 ml Output Total 775 ml 725 ml Balance 846.2 ml 21.0 ml 370.0 ml medications Current Medications Medications Dose Ordered Sig/Wally Route Start Time Stop Time Status Last Admin Dose Admin Ondansetron HCl 4 mg Q4HP PRN IV 03/12/25 00:00 Hydralazine HCl 10 mg Q6HP PRN IV 03/12/25 17:30 03/23/25 05:19 10 MG Lorazepam 1 mg Q8HP PRN IV 03/12/25 21:45 03/12/25 21:58 1 MG Ceftriaxone Sodium 50 ml @ 100 mls/hr DAILY@09 IV 03/13/25 09:00 03/22/25 08:53 100 MLS/HR Metronidazole 100 ml @ 100 mls/hr Q8HR IV 03/13/25 14:00 03/23/25 05:44 100 MLS/HR Midazolam HCl 100 ml @ 1 mls/hr Q24H IV 03/16/25 16:30 03/22/25 04:59 2 MLS/HR Fentanyl Citrate 250 ml @ 2.5 mls/hr Q24H IV 03/16/25 16:30 03/23/25 08:24 12.5 MLS/HR Diagnostic Test (Pha) 1 strip Q6HR 03/16/25 18:00 03/23/25 05:49 1 STRIP Insulin Human Regular FOLLOW SLIDING SCALE Q6HR SC 03/16/25 18:00 03/21/25 12:18 2 UNITS Dextrose 50 ml UD IV 03/16/25 17:15 Amino Acids 0 ml @ 0 mls/hr PER PHARMACY IV 03/16/25 17:15 Pantoprazole Sodium 50 ml @ 10 mls/hr Q5H IV 03/16/25 17:15 03/23/25 05:44 10 MLS/HR Folic Acid 1 mg/ Dextrose 50.2 ml @ 200.8 mls/ hr DAILY INJ 03/17/25 10:00 03/22/25 10:39 200.8 MLS/HR Thiamine HCl 100 mg DAILY IV 03/18/25 10:00 03/22/25 10:32 100 MG Atorvastatin Calcium 40 mg HS PO 03/17/25 22:00 Hold Enteral Nutritional Formula 1,000 ml 20 ML/HR NG 03/21/25 16:00 03/21/25 22:08 1,000 ML Metoclopramide HCl 5 mg Q8HR IV 03/22/25 14:00 03/23/25 05:45 5 MG Fat Emulsion Intravenous 100 ml/Potassium Acetate 30 meq/ Potassium Phosphate 22 meq/ Calcium Gluconate 4.65 meq/ Magnesium Sulfate 8 meq/ Multivitamins 10 ml/Chromium/ Copper/Manganese/ Zinc 1 ml/Amino Acids/Dextrose/ Purified Water 1,693 ml @ 70 mls/hr [id number] IV 03/22/25 22:00 03/23/25 21:59 03/22/25 22:17 70 MLS/HR Potassium Chloride 100 ml @ 50 mls/hr Q2H IV 03/23/25 06:00 03/23/25 09:59 03/23/25 07:12 50 MLS/HR Fat Emulsion Intravenous 100 ml/Potassium Acetate 40 meq/ Potassium Phosphate 22 meq/ Calcium Gluconate 4.65 meq/ Magnesium Sulfate 6 meq/ Multivitamins 10 ml/Chromium/ Copper/Manganese/ Zinc 1 ml/Amino Acids/Dextrose/ Purified Water 1,697.5 ml @ 71 mls/hr [id number] IV 03/23/25 22:00 03/24/25 21:59 objective The patient is well-nourished and well-developed with no distress. The patient is intubated MENTAL STATUS: Subjective CRANIAL NERVES: Pupils are equal, round and reactive. There is conjugated eye movement. Motor sensory examination on bilateral trigeminal distribution is fine, No signs of facial weakness. There are gagging or coughing reflexes oral and airway care SENSATION: Okay to touch MOTOR: Normal tone in the upper and lower extremity. Normal muscle bulk. No fasciculations. Moves the left arm REFLEXES: Deep tendon reflexes are symmetrical. No pathological reflexes. CEREBELLAR/COORDINATION: Deferred GAIT/STATION: deferred. laboratory and microbiology Laboratory Tests 03/23/25 02:40 Test 03/23/25 02:40 Range/Units Serum Glucose 106 74-106 mg/dL Problem List Altered mental status Metabolic encephalopathy secondary to sepsis, septic shock, hypernatremia Hypoxic encephalopathy Peptic ulcer, GI bleeding, anemia Respiratory failure New multiple strokes in different arterial territories (MRI 03/18/25) Multiple chronic strokes Maybe secondary to history methamphetamine, cocaine, alcohol use History of alcohol abuse History of cocaine, methamphetamine abuse Assessment/Plan Monitoring Supportive treatment ICU care Stabilize vitals Respiratory support/vent management Follow-up labs IV antibiotics Aspirin 81 mg daily later Lipitor later TPN Thiamine supplementation Folic acid supplementation GI service on case Nephrology service on case More recommended per clinical course This medical document was created using an electronic medical record system with [employer] dictation system. Although this document has been carefully reviewed, there may still be some phonetic and typographical errors. These areas are purely typographical due to imperfect Prognosis guarded Dietary Evaluation Review Recommendations by RD: Increase Calorie Intake, PPN/TPN Comments: Pt meets criteria 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 based on severe wt loss 35lb/24% in 5 month, intake <50% estimated requirement x 5 days, severe muscle wasting and fat depletion Nutrition Recommendation: 1) PPN/TPN if NPO continues 2) Advance to soft diet as medically feasible 3) Ensure Enlive 240ml TID if pt resumes PO diet 4) Monitor NPO status, lab values, weight trend, and I/O Expected Outcomes/Goals: Intake to meet >75% estimated needs GI symptoms to improve Fu 2-3 days Food and Nutrition Intake (Sev: <50% est energy req 5days Interpretation of weight loss: >10% in 6 months Body Fat Depletion (Severe): Mod to Severe Depletion Muscle Mass (Severe): Mod to Severe Depletion Protein Calorie Malnutrition: Severe Is there a minimum of two crit: Yes Plan discussed with: Other CC Plasma Assessment Blood Product Administration S: [id number] LEANDRO BLACK MD Mar 23, 2025 09:32
[2025-03-23 10:19] LABS: Hemoglobin 7.9 g/dL (13.5-17.5)
[2025-03-23 10:21] LABS: Hematocrit 24.6 % (41.0-53.0)
[2025-03-23 15:31] LABS: Hematocrit 23.4 % (41.0-53.0); Hemoglobin 7.4 g/dL (13.5-17.5)
--- NOTE | 2025-03-23 16:15 | DVHPNRES ---
Progress Note Date Seen: Mar 23, 2025 Resident Creating Document: SKY DASH RESIDENT Has the PT tested + for MRSA If YES, has PT been informed?: No Medical Necessity Reason Pt with a Central, PICC or Fol: Yes The following are medically ne: Central Line, Barrios Catheter Subjective Review of Systems Jossue Peerz he is a 49-year-old male past medical history of hypertension, hyperlipidemia, DVT, 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 The patient mentions he had passage of stool 7 times yesterday which was tarry black in color. Patient mentions he also had abdominal pain, nausea and a few episodes of vomiting for the last 2 days. He denies any fever,weakness or weight loss. He reports history of perforated duodenal ulcer s/p exp lap with prolonged ICU stay complicated with sepsis from cholecystitis s/p tracheostomy and removal. On arrival to the hospital, his hemoglobin was 4.2 and he had to be transfused with 2 units of PRBCs. He was kept NPO and NG tube placed. GI was consulted and they recommended continuing with IV Protonix drip scheduled patient for EGD on 03/13/2025. Patient was seen and examined on the bedside. He is on mechanical ventilation with FiO2 30%, Tidal volume 450 mL, respiratory rate 20, peep 5. GRV resembled coffee-ground color and reduce the tube feeding at 10 mL/hours as per GI . H&H 7.4/23.4 . No sign of external bleeding and last bowel movement was 03/17. The patient is on Versed 2, fentanyl 125, Protonix drip, TPN and tube feeding at 10 mL/hour. Objective vital signs Vital Sign Date Time Temp Pulse Resp B/P (MAP) Pulse Ox O2 Delivery O2 Flow Rate FiO2 03/23/25 15:23 72 20 129/70 (89) 100 30 03/23/25 08:00 Mechanical Ventilator+ 03/23/25 08:00 99.1 99.1 Total Intake and Output 03/22/25 03/22/25 03/23/25 15:00 23:00 07:00 Intake Total 846.2 ml 896.0 ml 913.0 ml Output Total 775 ml 725 ml Balance 846.2 ml 121.0 ml 188.0 ml medications Current Medications Medications Dose Ordered Sig/Wally Route Start Time Stop Time Status Last Admin Dose Admin Ondansetron HCl 4 mg Q4HP PRN IV 03/12/25 00:00 Hydralazine HCl 10 mg Q6HP PRN IV 03/12/25 17:30 03/23/25 05:19 10 MG Lorazepam 1 mg Q8HP PRN IV 03/12/25 21:45 03/12/25 21:58 1 MG Ceftriaxone Sodium 50 ml @ 100 mls/hr DAILY@09 IV 03/13/25 09:00 03/23/25 09:48 100 MLS/HR Metronidazole 100 ml @ 100 mls/hr Q8HR IV 03/13/25 14:00 03/23/25 14:51 100 MLS/HR Midazolam HCl 100 ml @ 1 mls/hr Q24H IV 03/16/25 16:30 03/23/25 14:52 2 MLS/HR Fentanyl Citrate 250 ml @ 2.5 mls/hr Q24H IV 03/16/25 16:30 03/23/25 08:24 12.5 MLS/HR Diagnostic Test (Pha) 1 strip Q6HR 03/16/25 18:00 03/23/25 12:00 1 STRIP Insulin Human Regular FOLLOW SLIDING SCALE Q6HR SC 03/16/25 18:00 03/21/25 12:18 2 UNITS Dextrose 50 ml UD IV 03/16/25 17:15 Amino Acids 0 ml @ 0 mls/hr PER PHARMACY IV 03/16/25 17:15 Pantoprazole Sodium 50 ml @ 10 mls/hr Q5H IV 03/16/25 17:15 03/23/25 10:47 10 MLS/HR Folic Acid 1 mg/ Dextrose 50.2 ml @ 200.8 mls/ hr DAILY INJ 03/17/25 10:00 03/23/25 10:00 200.8 MLS/HR Thiamine HCl 100 mg DAILY IV 03/18/25 10:00 03/23/25 09:50 100 MG Atorvastatin Calcium 40 mg HS PO 03/17/25 22:00 Hold Enteral Nutritional Formula 1,000 ml 20 ML/HR NG 03/21/25 16:00 03/21/25 22:08 1,000 ML Metoclopramide HCl 5 mg Q8HR IV 03/22/25 14:00 03/23/25 14:52 5 MG Fat Emulsion Intravenous 100 ml/Potassium Acetate 30 meq/ Potassium Phosphate 22 meq/ Calcium Gluconate 4.65 meq/ Magnesium Sulfate 8 meq/ Multivitamins 10 ml/Chromium/ Copper/Manganese/ Zinc 1 ml/Amino Acids/Dextrose/ Purified Water 1,693 ml @ 70 mls/hr [id number] IV 03/22/25 22:00 03/23/25 21:59 03/22/25 22:17 70 MLS/HR Fat Emulsion Intravenous 100 ml/Potassium Acetate 40 meq/ Potassium Phosphate 22 meq/ Calcium Gluconate 4.65 meq/ Magnesium Sulfate 6 meq/ Multivitamins 10 ml/Chromium/ Copper/Manganese/ Zinc 1 ml/Amino Acids/Dextrose/ Purified Water 1,697.5 ml @ 71 mls/hr [id number] IV 03/23/25 22:00 03/24/25 21:59 Sucralfate 1 gm QID@0600,1130,1700,2200 GT 03/23/25 17:00 Examination Examination General: RASS -1, afebrile, mucosae are moist Cardiovascular: Normal S1 and S2. No murmurs, gallops or rubs Respiratory: Mechanically assisted ventilation, equal bilateral airway entree. Clear lung sounds on auscultation Abdomen: Soft, nontender, no organomegaly, normal bowel sounds MSK/skin: Mobilization of limbs cannot be evaluated. Skin is dry and warm. Neurological: Orientation cannot be assessed. No apparent motor no sensitive deficits. Pupils are isocoric and reactive laboratory and microbiology Laboratory Tests 03/23/25 15:21 03/23/25 02:40 Test 03/23/25 02:40 Range/Units Serum Glucose 106 74-106 mg/dL Microbiology Date/Time Source Procedure Growth Status 03/16/25 16:36 Nose MRSA Screen - Final Complete 03/16/25 16:06 Sputum Gram Stain - Final Complete 03/16/25 16:06 Respiratory Culture - Final Stenotrophomonas maltophilia Escherichia coli Presumptive Milady albicans Complete 03/13/25 11:53 Stool Stool Culture - Final Complete 03/13/25 11:53 Stool Shiga Toxin I & II - Final Complete 03/12/25 11:55 Urine - Barrios [place] Urine Culture - Final Complete 03/11/25 15:36 Blood Blood Culture - Final NO GROWTH AFTER 5 DAYS OF INCUBATION. Complete Labs and/or images reviewed: Labs reviewed by me, Image(s) reviewed by me Problem List/Assessment/Plan Problem List/Assessment/Plan Assessment and plan : NEURO: Acute metabolic encephalopathy secondary to acute ischemic stroke Acute or subacute ischemic stroke RASS score: - 1 - CT head without contrast demonstrated new medial right parieto-occipital focal region of diminished parenchymal attenuation within the medial right parietal occipital lobes. This is concerning for an acute to subacute infarct with chronic multifocal lacunar infarct - MRI showed Infarcts involving multiple vascular territories involved medial right occipital lobe, posterior left occipital lobe, and left lopes radiata white matter tracts. Few additional tiny foci of diffusion restriction at the anterior right parietal cortex. - Neurology on board - hold aspirin and Plavix for now because of GI bleeding - hold atorvastatin as patient is NPO CARDIOVASCULAR: Chronic diastolic heart failure with preserved ejection fraction - Echo on 11/12 demonstrated EF 65%, MILD LVH AND MILD LV DIASTOLIC DYSFUNCTION - elevated BNP - CxR showed Bilateral interstitial opacities, small left basilar consolidation and pleural effusion PULMONARY: Acute hypoxic respiratory failure S/P intubation GASTROINTESTINAL: Acute GI bleed upper vs lower Partial small Intestinal obstruction likely secondary to fecal impaction. Cholelithiasis C diff positive Transaminitis likely secondary to low hepatic perfusion -CT abdomen/pelvis showed low-grade distal partial obstruction due to fecal retention. - Gastrograffin study showed Contrast is identified within the colon by 3 hours. No evidence of bowel obstruction. -EGD on 03/13/25 showed 1-2 cm sliding-type hiatal hernia with severe grade C linear erosive esophagitis with esophageal ulcers extending into the distal 15 cm of the esophagus persistent duodenal bulb ulcer seen just inside the pyloric opening which was large coalescing with a visible sutures; there was no active bleeding or visible vessel but there was acute on chronic inflammation deformity of the postbulbar duodenal area and I was able to see the 2nd part of the duodenum but there was area of debris and ongoing chronic ulceration inflammation and the endoscope was not advanced beyond this area mild gastritis and some old coffee-ground within the stomach - NPO - Tube feeding at 10 mL/hours - IV Protonix drip - Carafate suspension 1 g q.i.d. - Zofran 4 mg IV q.4 PRN - IV metoclopramide 5 mg Q 8 hours - IV ceftriaxone 1 gm daily and IV metronidazole 500 mg 8hrly. - GI and surgery are on the board - pending bleeding scan as patient is intubated and on mechanical ventilation - Monitor Hand H, transfuse if hemoglobin less than 7 GENITOURINARY: GIOVANI on CKD likely hemodynamically mediated/VMN - Nephrology on board - Monitor BMP METABOLIC: Hypernatremia Hypokalemia Hypophosphatemia - replaced potassium and phosphate - monitor BMP HEME: Severe microcytic hypochromic anemia due to GI bleeding Iron deficiency due to above Bilateral superficial thrombophlebitis - Patient received 4 units of PRBC - Monitor H&H INFECTIOUS DISEASE: Acute C diff infection - hold po vanc because of upper GI bleeding DIET: TPN, Tube feeding DVT prophylax: SCD GI prophylaxis: Protonix drip Bowel regimen: Lactulose Code status: Full code LINES/DRAINS/ACCESS: ETT: Intubated on 03/16/2025 IV access: Right IJ placed on 03/16/2025 Drips: Fentanyl, Versed, Protonix drip, TPN, tube feeding Barrios catheter: DISPOSITION: ICU Patient's status discussed with RN, Critical care time spent more than 72 minutes, including patient care, chart review, and updating the family. Excluding any procedures. Case discussed with Dr. Humphrey Plan discussed with: Spouse, Other (RN) My Orders My Orders Orders - SKY DASH RESIDENT Procedure Category Date Status Time Chest Portable XY 03/23/25 Resulted 04:00 Abg W/ Co-Ox RT 03/23/25 Logged 04:00 Amino Acid PHA 03/23/25 In Process Infusion... W/Fat 22:00 Comprehensive LAB 03/24/25 Verified Metabolic Panel 05:00 Magnesium LAB 03/24/25 Verified 05:00 Phosphorus LAB 03/24/25 Verified 05:00 Tpn Per Pharmacy CINTHIA 03/23/25 In Process 22:00 Sucralfate Susp PHA 03/23/25 In Process (Carafate Susp) 17:00 Dietary Evaluation Review Recommendations by RD: Increase Calorie Intake, PPN/TPN Comments: Pt meets criteria 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 based on severe wt loss 35lb/24% in 5 month, intake <50% estimated requirement x 5 days, severe muscle wasting and fat depletion Nutrition Recommendation: 1) PPN/TPN if NPO continues 2) Advance to soft diet as medically feasible 3) Ensure Enlive 240ml TID if pt resumes PO diet 4) Monitor NPO status, lab values, weight trend, and I/O Expected Outcomes/Goals: Intake to meet >75% estimated needs GI symptoms to improve Fu 2-3 days Food and Nutrition Intake (Sev: <50% est energy req 5days Interpretation of weight loss: >10% in 6 months Body Fat Depletion (Severe): Mod to Severe Depletion Muscle Mass (Severe): Mod to Severe Depletion Protein Calorie Malnutrition: Severe Is there a minimum of two crit: Yes CC Plasma Assessment Blood Product Administration S: [id number] Date of Service: Mar 23, 2025 Billing Provider: ELVIN WHATLEY MD Common Visit Codes: [id number] INP/OBS CARE(HIGH) SKY DASH RESIDENT Mar 23, 2025 16:15 ELVIN WHATLEY MD Mar 24, 2025 09:49
[2025-03-23] MEDS: SUCRALFATE 1 GM/10 ML ORAL SUSP GT SCH (18:02)
[2025-03-23] MEDS: LACTULOSE 20Gm/30ML SOLN PO ONE (18:03)
--- NOTE | 2025-03-23 18:27 | DVHPN2 ---
Progress Note Date Seen: Mar 23, 2025 Resident Creating Document: YVES TOSCANOKEILA RESIDENT Has the PT tested + for MRSA If YES, has PT been informed?: No Medical Necessity Reason Pt with a Central, PICC or Fol: Yes The following are medically ne: Central Line, Barrios Catheter Subjective Review of Systems Patient is sedated and mechanically ventilated H&H continues to be in the range of 7-8 Tolerating tube feedings with a residual volumes of about 200 mL Q shift Bowel sounds hypoactive No bowel movement reported with the weekend Objective vital signs Vital Sign Date Time Temp Pulse Resp B/P (MAP) Pulse Ox O2 Delivery O2 Flow Rate FiO2 03/23/25 18:11 65 20 139/75 (96) 100 30 03/23/25 18:00 Mechanical Ventilator+ 03/23/25 16:00 99.3 99.3 Total Intake and Output 03/22/25 03/22/25 03/23/25 15:00 23:00 07:00 Intake Total 846.2 ml 896.0 ml 983.0 ml Output Total 775 ml 725 ml Balance 846.2 ml 121.0 ml 258.0 ml medications Current Medications Medications Dose Ordered Sig/Wally Route Start Time Stop Time Status Last Admin Dose Admin Ondansetron HCl 4 mg Q4HP PRN IV 03/12/25 00:00 Hydralazine HCl 10 mg Q6HP PRN IV 03/12/25 17:30 03/23/25 05:19 10 MG Lorazepam 1 mg Q8HP PRN IV 03/12/25 21:45 03/12/25 21:58 1 MG Ceftriaxone Sodium 50 ml @ 100 mls/hr DAILY@09 IV 03/13/25 09:00 03/23/25 09:48 100 MLS/HR Metronidazole 100 ml @ 100 mls/hr Q8HR IV 03/13/25 14:00 03/23/25 14:51 100 MLS/HR Midazolam HCl 100 ml @ 1 mls/hr Q24H IV 03/16/25 16:30 03/23/25 14:52 2 MLS/HR Fentanyl Citrate 250 ml @ 2.5 mls/hr Q24H IV 03/16/25 16:30 03/23/25 08:24 12.5 MLS/HR Diagnostic Test (Pha) 1 strip Q6HR 03/16/25 18:00 03/23/25 18:02 1 STRIP Insulin Human Regular FOLLOW SLIDING SCALE Q6HR SC 03/16/25 18:00 03/21/25 12:18 2 UNITS Dextrose 50 ml UD IV 03/16/25 17:15 Amino Acids 0 ml @ 0 mls/hr PER PHARMACY IV 03/16/25 17:15 Pantoprazole Sodium 50 ml @ 10 mls/hr Q5H IV 03/16/25 17:15 03/23/25 10:47 10 MLS/HR Folic Acid 1 mg/ Dextrose 50.2 ml @ 200.8 mls/ hr DAILY INJ 03/17/25 10:00 03/23/25 10:00 200.8 MLS/HR Thiamine HCl 100 mg DAILY IV 03/18/25 10:00 03/23/25 09:50 100 MG Atorvastatin Calcium 40 mg HS PO 03/17/25 22:00 Hold Enteral Nutritional Formula 1,000 ml 20 ML/HR NG 03/21/25 16:00 03/21/25 22:08 1,000 ML Metoclopramide HCl 5 mg Q8HR IV 03/22/25 14:00 03/23/25 14:52 5 MG Fat Emulsion Intravenous 100 ml/Potassium Acetate 30 meq/ Potassium Phosphate 22 meq/ Calcium Gluconate 4.65 meq/ Magnesium Sulfate 8 meq/ Multivitamins 10 ml/Chromium/ Copper/Manganese/ Zinc 1 ml/Amino Acids/Dextrose/ Purified Water 1,693 ml @ 70 mls/hr [id number] IV 03/22/25 22:00 03/23/25 21:59 03/22/25 22:17 70 MLS/HR Fat Emulsion Intravenous 100 ml/Potassium Acetate 40 meq/ Potassium Phosphate 22 meq/ Calcium Gluconate 4.65 meq/ Magnesium Sulfate 6 meq/ Multivitamins 10 ml/Chromium/ Copper/Manganese/ Zinc 1 ml/Amino Acids/Dextrose/ Purified Water 1,697.5 ml @ 71 mls/hr [id number] IV 03/23/25 22:00 03/24/25 21:59 Sucralfate 1 gm QID@0600,1130,1700,2200 GT 03/23/25 17:00 03/23/25 18:02 1 GM Lactulose 15 ml DAILY PO 03/24/25 10:00 Examination Gen - mild conjunctival pallor, no scleral icterus Skin - Patients skin is warm and dry. HEENT - normocephalic, atraumatic, dry mucous membranes. Neck - supple, no lymphadenopathy Pulmonary - B/L equal air entry cardiovascular - regular S1,S2 heard GI - soft abdomen. Bowel sounds hypoactive. Neurological - Patient is sedated and on mechanical ventilation laboratory and microbiology Laboratory Tests 03/23/25 15:21 03/23/25 02:40 Test 03/23/25 02:40 Range/Units Serum Glucose 106 74-106 mg/dL Microbiology Date/Time Source Procedure Growth Status 03/16/25 16:36 Nose MRSA Screen - Final Complete 03/16/25 16:06 Sputum Gram Stain - Final Complete 03/16/25 16:06 Respiratory Culture - Final Stenotrophomonas maltophilia Escherichia coli Presumptive Milady albicans Complete 03/13/25 11:53 Stool Stool Culture - Final Complete 03/13/25 11:53 Stool Shiga Toxin I & II - Final Complete 03/12/25 11:55 Urine - Barrios [place] Urine Culture - Final Complete 03/11/25 15:36 Blood Blood Culture - Final NO GROWTH AFTER 5 DAYS OF INCUBATION. Complete Problem List/Assessment/Plan Problem List/Assessment/Plan Assessment Upper GI bleeding likely from persistent duodenal ulcer Duodenal ulcer disease History of perforated duodenal ulcer s/p surgical repair Hiatal hernia Severe grade C linear erosive esophagitis with esophageal ulcers C. difficile colitis Elevated liver enzymes Severe anemia New multiple stroke in different arterial territories (MRI 03/18/25) Multiple chronic strokes GIOVANI on CKD likely due to VMN, improving Transaminitis Pneumonia Plan Continue on Protonix drip Continue on feeding through NG tube 10 mL per hour check residuals Q shift Monitor H&H, transfuse if HGB less than 7 LFTs improving IV metronidazole and ceftriaxone Hold off on anticoagulation and antiplatelet drugs because of likely active GI bleed Continue on TPN Plan discussed with Dr. Stoddard Plan discussed with: Other (JASPER Malone, Primary team) Dietary Evaluation Review Recommendations by RD: Increase Calorie Intake, PPN/TPN Comments: Pt meets criteria 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 based on severe wt loss 35lb/24% in 5 month, intake <50% estimated requirement x 5 days, severe muscle wasting and fat depletion Nutrition Recommendation: 1) PPN/TPN if NPO continues 2) Advance to soft diet as medically feasible 3) Ensure Enlive 240ml TID if pt resumes PO diet 4) Monitor NPO status, lab values, weight trend, and I/O Expected Outcomes/Goals: Intake to meet >75% estimated needs GI symptoms to improve Fu 2-3 days Food and Nutrition Intake (Sev: <50% est energy req 5days Interpretation of weight loss: >10% in 6 months Body Fat Depletion (Severe): Mod to Severe Depletion Muscle Mass (Severe): Mod to Severe Depletion Protein Calorie Malnutrition: Severe Is there a minimum of two crit: Yes CC Plasma Assessment Blood Product Administration S: [id number] RICHARD TOSCANO RESIDENT Mar 23, 2025 18:27
[2025-03-23] MEDS: TPN PER PHARMACY IV NR (22:57)
--- NOTE | 2025-03-23 23:25 | DVHPN2 ---
Subjective DOS: 03/23/2025 Patient seen and examined at bedside. Sedated, intubated on mechanical ventilator. Overnight events reviewed. Changes from previous H/P or p: No Changes Eyes: No Pain, No Vision change, No Conjunctivae inflammation, No Eyelid inflammation, No Other, No Redness ENT: No Ear pain, No Ear discharge, No Nose pain, No Nose discharge, No Nose congestion, No Mouth pain, No Mouth swelling, No Throat pain, No Throat swelling, No Other Cardiovascular: No Chest Pain, No Palpitations, No Orthopnea, No Paroxysmal Noc. Dyspnea, No Edema, No Lt Headedness, No Other Respiratory: No Cough, No Dry, No Shortness of breath, No SOB with excertion, No Wheezing, No Hemoptysis, No Pleuritic Pain, No Sputum, No Other Gastrointestinal: Melena Musculoskeletal: No other, No neck pain, No shoulder pain, No arm pain, No back pain, No hand pain, No leg pain, No foot pain Skin: No Rash, No Lesions, No Jaundice, No Bruising, No Other Objective Vitals Vital Signs Date Time Temp Pulse Resp B/P (MAP) Pulse Ox O2 Delivery O2 Flow Rate FiO2 03/23/25 21:58 77 20 114/68 (83) 100 30 03/23/25 18:00 Mechanical Ventilator+ 03/23/25 16:00 99.3 99.3 Intake/Output Intake and Output 03/23/25 07:00 Intake Total 2725.2 ml Output Total 1500 ml Balance 1225.2 ml IV Total 2267.2 ml Tube Feeding 458 ml Output Urine Total 1500 ml Exam Gen.: Patient lying in bed in medical ICU. Sedated, intubated on mechanical ventilator. Head: Normocephalic, atraumatic. Eyes: PERRLA. Ears: Normal external anatomy. Throat: Endotracheal tube and orogastric tube in place. Neck: Supple, trachea midline. Chest: Transmitted breath sounds bilaterally. Decreased air entry bilaterally. No wheezing. Bibasilar crackles. Cardiovascular: Positive S1, positive S2. Regular rate and rhythm. Abdomen: Positive bowel sounds in all 4 quadrants. Soft, nontender, nondistended. : Barrios in place. Normal external genitalia. Rectal: Deferred. Skin: Warm, dry. Intact. Extremities: 2+ radial pulses bilaterally. No lower extremity edema. Neuro: Sedated. Medications Current Medications Medications Dose Ordered Sig/Wally Route Start Time Stop Time Status Last Admin Dose Admin Ondansetron HCl 4 mg Q4HP PRN IV 03/12/25 00:00 Hydralazine HCl 10 mg Q6HP PRN IV 03/12/25 17:30 03/23/25 05:19 10 MG Lorazepam 1 mg Q8HP PRN IV 03/12/25 21:45 03/12/25 21:58 1 MG Ceftriaxone Sodium 50 ml @ 100 mls/hr DAILY@09 IV 03/13/25 09:00 03/23/25 09:48 100 MLS/HR Metronidazole 100 ml @ 100 mls/hr Q8HR IV 03/13/25 14:00 03/23/25 22:52 100 MLS/HR Midazolam HCl 100 ml @ 1 mls/hr Q24H IV 03/16/25 16:30 03/23/25 14:52 2 MLS/HR Fentanyl Citrate 250 ml @ 2.5 mls/hr Q24H IV 03/16/25 16:30 03/23/25 08:24 12.5 MLS/HR Diagnostic Test (Pha) 1 strip Q6HR 03/16/25 18:00 03/23/25 18:02 1 STRIP Insulin Human Regular FOLLOW SLIDING SCALE Q6HR SC 03/16/25 18:00 03/21/25 12:18 2 UNITS Dextrose 50 ml UD IV 03/16/25 17:15 Amino Acids 0 ml @ 0 mls/hr PER PHARMACY IV 03/16/25 17:15 Pantoprazole Sodium 50 ml @ 10 mls/hr Q5H IV 03/16/25 17:15 03/23/25 19:43 10 MLS/HR Folic Acid 1 mg/ Dextrose 50.2 ml @ 200.8 mls/ hr DAILY INJ 03/17/25 10:00 03/23/25 10:00 200.8 MLS/HR Thiamine HCl 100 mg DAILY IV 03/18/25 10:00 03/23/25 09:50 100 MG Atorvastatin Calcium 40 mg HS PO 03/17/25 22:00 Hold Enteral Nutritional Formula 1,000 ml 20 ML/HR NG 03/21/25 16:00 03/21/25 22:08 1,000 ML Metoclopramide HCl 5 mg Q8HR IV 03/22/25 14:00 03/23/25 22:54 5 MG Fat Emulsion Intravenous 100 ml/Potassium Acetate 40 meq/ Potassium Phosphate 22 meq/ Calcium Gluconate 4.65 meq/ Magnesium Sulfate 6 meq/ Multivitamins 10 ml/Chromium/ Copper/Manganese/ Zinc 1 ml/Amino Acids/Dextrose/ Purified Water 1,697.5 ml @ 71 mls/hr [id number] IV 03/23/25 22:00 03/24/25 21:59 03/23/25 22:57 71 MLS/HR Sucralfate 1 gm QID@0600,1130,1700,2200 GT 03/23/25 17:00 03/23/25 22:54 1 GM Lactulose 15 ml DAILY PO 03/24/25 10:00 Laboratory Results Laboratory Tests 03/23/25 02:40 03/23/25 15:21 Chemistry Test 03/23/25 02:40 Albumin 2.4 g/dL (3.2-4.8) L Calcium Level 8.0 mg/dL (8.7-10.4) L Magnesium Level 2.2 mg/dL (1.6-2.6) Phosphorus Level 3.1 mg/dL (2.4-5.1) Total Protein 5.5 g/dL (5.7-8.2) L LFT Test 03/23/25 02:40 Alanine Aminotransferase (ALT) 157 U/L (7-40) H Alkaline Phosphatase 521 U/L (46-116) H Aspartate Amino Transferase (AST) 100 U/L (13-40) H Total Bilirubin 0.4 mg/dL (0.2-1.0) Urinalysis Test 03/12/25 05:00 03/12/25 10:20 03/17/25 06:30 Urine Color Light-yellow (Yellow) Urine Clarity Clear (Clear) Urine pH 5.5 (5.0-9.0) Urine Specific [place] 1.013 (1.001-1.035) Urine Protein Trace (Negative) H Urine Ketones Trace (Negative) Urine Blood Negative /uL (Negative) Urine Nitrite Negative (Negative) Urine Bilirubin Negative (Negative) Urine Urobilinogen Normal mg/dL (Negative) Urine Leukocyte Esterase Negative /uL (Negative) Urine RBC <1 /hpf (0 - 3) Urine Microscopic WBC < 1 /HPF (0-3) Urine Squamous Epithelial Cells None seen /hpf (<5) Urine Bacteria None seen /hpf (None Seen) Urine Glucose Normal mg/dL (Normal) Urine Protein/Creatinine Ratio 2.26 Urine Total Protein 23.6 mg/dL (1-14) H Urine Creatinine 56.14 mg/dL (30.0-125.0) Urine Sodium 13 mmol/L (40-220) L Blood Gas Results Test 03/23/25 06:36 Arterial Blood pH 7.391 (7.350-7.450) FiO2 % 30.0 Microbiology Microbiology Date/Time Source Procedure Growth Status 03/16/25 16:36 Nose MRSA Screen - Final Complete 03/16/25 16:06 Sputum Gram Stain - Final Complete 03/16/25 16:06 Respiratory Culture - Final Stenotrophomonas maltophilia Escherichia coli Presumptive Milady albicans Complete 03/13/25 11:53 Stool Stool Culture - Final Complete 03/13/25 11:53 Stool Shiga Toxin I & II - Final Complete 03/12/25 11:55 Urine - Barrios [place] Urine Culture - Final Complete 03/11/25 15:36 Blood Blood Culture - Final NO GROWTH AFTER 5 DAYS OF INCUBATION. Complete Assessment/Plan Assessment/Plan Impression: Acute hypoxic respiratory failure On mechanical ventilator Acute metabolic encephalopathy Multiple strokes Chronic diastolic heart failure with preserved EF GI hemorrhage Anemia GIOVANI on CKD Events: Remains on vent support On AC mode; RR 20, VT 500, PEEP 5, FiO2 30% Taper FiO2 as tolerated Sedated on Versed, Fentanyl Continue antibiotics Continue IV fluids Continue Protonix drip Continue to monitor hemoglobin closely Transfuse if less than 7.0 g/dL. TPN/tube feeds for nutritional support Awaiting GI clearance to consider CPAP. Labs and imaging reviewed. Rest of plan as noted below. Plan: s/p intubation on mechanical ventilator. On AC mode; RR 20, VT 500, PEEP 5, FiO2 30% Titrate FIO2 to keep O2 saturation above 90%. VAP bundle. Daily ABG and CXR while intubated Sedate for ventilator synchrony Continue antibiotics. Follow up cultures. Pressors as necessary for hemodynamic support Titrate to keep mean arterial pressure greater than 65 mmHg. Monitor hemoglobin Transfuse if less than 7.0 g/dL. NGT to LIS Protonix drip F/u GI and Surgery recs Accu-Cheks, ISS PRN Monitor renal function Monitor electrolytes. Supplement as necessary. Monitor ins and outs. Maintain euvolemia. TPN for nutritional support Counseled against vaping and marijuana use. GI prophylaxis. DVT prophylaxis. Prognosis: Poor given patient's multiple co-morbidities. Condition: Critical Rest of plan per hospitalist and other consultants. A total of 35 minutes of critical care time was spent reviewing the patient record, examining the patient, making a diagnostic and therapeutic plan, discussing this plan with the medical personnel, following up on diagnostic studies and following the patient for clinical stability excluding any and all procedures. At least 50% of this time was spent in direct, [id number] contact. Thank you, Dr. Khoury, for allowing me to participate in this patient's care. Further recommendations will depend on the patient's clinical course. Please do not hesitate to contact me if you have any questions or concerns. This medical document was created using an electronic medical record system with [employer] dictation system. Although these documentations are being carefully reviewed, there may still be some phonetic and typographical changes. The errors are purely typographical, due to imperfection on the software program, and do not reflect any compromise in the patient's medical care. Plan discussed with: Other (JASPER Dumont) Visit Coding Pulmonary Billing Provider: ARIE LOPEZ MD Date of Service if different f: Mar 23, 2025 Common Visit Codes: [id number] INP/OBS CARE(HIGH), [id number] CARE 30-74 MIN ARIE LOPEZ MD Mar 23, 2025 23:25
[2025-03-24] VITALS (103 sets, daily range): BP systolic 115–186; BP diastolic 63–114; PULSE 70–112; RESP 13–80; TEMP 80.8–100.2; O2SAT 98–100
[2025-03-24 02:41] LABS: Hemoglobin 7.4 g/dL (13.5-17.5)
[2025-03-24 02:45] LABS: Hematocrit 22.8 % (41.0-53.0); Mean Corpuscular Hemoglobin 27.7 pg (28.0-32.0); Mean Corpuscular Volume 84.9 fL (80.0-100.0); Nucleated Red Blood Cells % 0.0 %
--- NOTE | 2025-03-24 04:46 | DVH ---
CHEST RADIOGRAPH Indication: Mechanical ventilation Technique: Single frontal view of the chest was obtained COMPARISON: XY CHEST PORTABLE on DOS: 03/23/25, XY CHEST XRAY 1 VIEW on DOS: 03/22/25, XY CHEST PORTABLE on DOS: 03/21/25, XY CHEST PORTABLE on DOS: 03/20/25, XY CHEST PORTABLE on DOS: 03/19/25 FINDINGS: Lines and Tubes: Slight interval advancement of the endotracheal tube such that the tip now projects approximately 3.0 cm above the level of the [place]. Remaining lines and tubes unchanged. Lungs: Stable small left pleural effusion. No evidence of focal consolidation. No pneumothorax. Cardiomediastinal contours: Unremarkable Bones: Unremarkable IMPRESSION: 1. Slight interval advancement of the endotracheal tube such that the tip now projects approximately 3.0 cm above the level of the [place]. Remaining lines and tubes unchanged. 2. Stable small left pleural effusion.
[2025-03-24 04:47] LABS: Anion Gap 7 (5-15); BUN/Creatinine Ratio 30.9 (10.0-20.0); Bilirubin, Total 0.4 mg/dL (0.2-1.0); Carbon Dioxide 27 mmol/L (20-31); Magnesium 2.2 mg/dL (1.6-2.6); Potassium 3.6 mmol/L (3.5-5.1); Sodium 141 mmol/L (136-145)
[2025-03-24 05:48] LABS: Alanine Aminotransferase 135 U/L (7-40); Albumin 2.2 g/dL (3.2-4.8); Alkaline Phosphatase 598 U/L (46-116); Blood Urea Nitrogen 43 mg/dL (9-23); Calcium 7.7 mg/dL (8.7-10.4); Chloride 107 mmol/L (98-107); Glucose 114 mg/dL (74-106); Total Protein 5.0 g/dL (5.7-8.2)
[2025-03-24 06:52] LABS: Base Excess 0.0 mmol/L (-2.0-3.0)
[2025-03-24] MEDS: LACTULOSE 20Gm/30ML SOLN PO SCH (10:29)
--- NOTE | 2025-03-24 10:33 | DVHPN2 ---
Progress Note - Dictate Date Seen: Mar 24, 2025 Has the PT tested + for MRSA If YES, has PT been informed?: No Medical Necessity Reason Pt with a Central, PICC or Fol: Yes The following are medically ne: Central Line, Barrios Catheter Subjective Mr. Perez is a 49 years old right-handed gentleman with a history of hypertension, dyslipidemia, multiple strokes, DVT, he was brought to the [facility] on 03/11/2025 with a chief complaint of diarrhea, history is obtained from his , the chart review I saw him on 08/23/2023 for TIA, 10/27/2024 for encephalopathy I have seen and examined the patient, I have talked to his nurse, he is intubated, he open the eyes to my voice, he tracks a little bit, but he does not move the extremities, He only moves the left arm RN: Was able to follow verbal commands Versed 3 mg/hour, fentanyl 1250 mcg/hour Stool occult blood, 03/13/2025: Positive UDS, 03/12/2025: Negative Plasma alcohol, 03/12/2025: <3 Urinalysis, 03/12/2025: WBC: One, urine leukocyte esterase: Negative ABG, 03/16/25: Hypoxia, respiratory acidosis WBC/Hb/PLT'/MCV, 03/16/25: 10.l 6/7.9/339/82.4 Na, 03/11/2025: 129, 03/12/2025: 130, 129, 03/15/25: 145, 03/16/25: 142 BUNs/CR, 08/22/2023: 15/1.45, 03/11/2025: 55/1.77, 03/13/2025: 43/1.58, 02/2725: 65/2.56 GFR, 08/22/2023: 59 TBI/AST/ALT/AP,: 0.8/269/450/398 TG/CHO L/LDL/HDL, 08/2023: 136/166/111/39 Vitamin B12, 03/12/25: 852 Folic acid, 03/12/2025: 12.28 TSH, 08/23/2023: 4.25 Extremity venous study, right arm, 11/09/2024: Thrombus is seen in the cephalic vein in the forearm. DONAL, 08/23/2023: 1. No evidence of intracardiac source of embolus in the study conducted today. 2. Normal valves without significant masses or change vegetations were discernible. 3. No evidence of intra-atrial shunting by bubble study and color Doppler. 4. Mild atherosclerotic plaquing was visualized in the arch of the aorta without evidence of dissection in the visualized part EGD, 03/13/2025: 1. 1-2 cm sliding-type hiatal hernia with severe grade C linear erosive esophagitis with esophageal ulcers extending into the distal 15 cm of the esophagus 2. Patient had a persistent duodenal bulb ulcer seen just inside the pyloric opening which was large coalescing with a visible sutures; there was no active bleeding or visible vessel but there was acute on chronic inflammation 3. Patient had deformity of the postbulbar duodenal area and I was able to see the 2nd part of the duodenum but there was area of debris and ongoing chronic ulceration inflammation and the endoscope was not advanced beyond this area 3. Patient had mild gastritis and some old coffee-ground within the stomach Chest x-ray, 03/12/2025: Mild chronic appearing left basilar pulmonary airspace disease and possible small pleural effusion Chest x-ray, 03/13/2025: 1. Enteric tube terminates in the stomach. 2. Worsening bilateral interstitial and alveolar opacities. Chest x-ray, : Endotracheal tube and right IJ approach central venous catheters are in satisfactory position. Trace [id number]-right pleural effusions with right retro lower lung zone linear atelectasis/ fluid within the fissure. CT head, 10/24/2024: 1. No intracranial hemorrhage or mass effect. 2. Mxtw-ia-nirqmntd chronic microvascular ischemic changes. 3. Old bilateral basal ganglia lacunar infarcts. 4. Small bilateral mastoid effusions. CT head, 03/17/2025: 1. New medial right parieto-occipital focal region of diminished parenchymal attenuation within the medial right parietal occipital lobes. This is concerning for an acute to subacute infarct. Recommend further evaluation with MRI. 2. No evidence of acute intracranial hemorrhage, mass effect or hydrocephalus. 3. Chronic sequelae of microangiopathy and atrophic cortical volume loss.4. Multifocal chronic lacunar infarcts as outlined above. CT abdomen/pelvis, 10/04/2024: 1. Extensive intra-abdominal free air concerning for perforated viscus. Surgical consultation is recommended. 2. Enteritis is seen in multiple loops of small bowel in the left hemiabdomen. 3. Moderate abdominopelvic ascites. 4. Small right pleural effusion. CTA neck, head, 08/22/2023:1. CTA head demonstrates no evidence of large vessel occlusion, aneurysm, or significant stenosis. 2. CTA neck demonstrates no evidence of carotid or vertebral dissection or significant stenosis. 3. No noncontrast CT head was performed. 4. Additional findings as detailed above MRI head, 08/23/2023: No acute infarct, intracranial hemorrhage, mass effect, or hydrocephalus. Moderate periventricular and deep subcortical white matter T2 hyperintensities which are nonspecific, but most likely related to sequela of chronic microvascular ischemic changes (I have reviewed the MRI films with our in-house radiologist, Dr. Black, the patient had bilateral multiple subacute/chronic infarcts) MRI head, 11/01/2024: No acute cerebrovascular ischemia. Ipdw-[id number] chronic microvascular ischemic changes. Bilateral mastoid effusions. Old bilateral basal ganglia / lopes radiata infarcts. MR head, 03/16/2025: Infarcts involving multiple vascular territories as described. vital signs Vital Sign Date Time Temp Pulse Resp B/P (MAP) Pulse Ox O2 Delivery O2 Flow Rate FiO2 03/24/25 09:00 85 22 138/82 (100) 100 30 03/24/25 06:30 80.8 177.4 03/24/25 06:00 Mechanical Ventilator+ Total Intake and Output 03/23/25 03/23/25 03/24/25 14:59 22:59 06:59 Intake Total 942.2 ml 645.5 ml 892.0 ml Output Total 1350 ml 750 ml Balance 942.2 ml -704.5 ml 142.0 ml medications Current Medications Medications Dose Ordered Sig/Wally Route Start Time Stop Time Status Last Admin Dose Admin Ondansetron HCl 4 mg Q4HP PRN IV 03/12/25 00:00 Hydralazine HCl 10 mg Q6HP PRN IV 03/12/25 17:30 03/23/25 05:19 10 MG Lorazepam 1 mg Q8HP PRN IV 03/12/25 21:45 03/12/25 21:58 1 MG Ceftriaxone Sodium 50 ml @ 100 mls/hr DAILY@09 IV 03/13/25 09:00 03/24/25 10:30 100 MLS/HR Metronidazole 100 ml @ 100 mls/hr Q8HR IV 03/13/25 14:00 03/24/25 06:01 100 MLS/HR Midazolam HCl 100 ml @ 1 mls/hr Q24H IV 03/16/25 16:30 03/23/25 14:52 2 MLS/HR Fentanyl Citrate 250 ml @ 2.5 mls/hr Q24H IV 03/16/25 16:30 03/24/25 04:00 15 MLS/HR Diagnostic Test (Pha) 1 strip Q6HR 03/16/25 18:00 03/24/25 06:02 1 STRIP Insulin Human Regular FOLLOW SLIDING SCALE Q6HR SC 03/16/25 18:00 03/21/25 12:18 2 UNITS Dextrose 50 ml UD IV 03/16/25 17:15 Amino Acids 0 ml @ 0 mls/hr PER PHARMACY IV 03/16/25 17:15 Pantoprazole Sodium 50 ml @ 10 mls/hr Q5H IV 03/16/25 17:15 03/24/25 10:30 10 MLS/HR Folic Acid 1 mg/ Dextrose 50.2 ml @ 200.8 mls/ hr DAILY INJ 03/17/25 10:00 03/23/25 10:00 200.8 MLS/HR Thiamine HCl 100 mg DAILY IV 03/18/25 10:00 03/24/25 10:28 100 MG Atorvastatin Calcium 40 mg HS PO 03/17/25 22:00 Hold Enteral Nutritional Formula 1,000 ml 20 ML/HR NG 03/21/25 16:00 03/21/25 22:08 1,000 ML Metoclopramide HCl 5 mg Q8HR IV 03/22/25 14:00 03/24/25 06:02 5 MG Fat Emulsion Intravenous 100 ml/Potassium Acetate 40 meq/ Potassium Phosphate 22 meq/ Calcium Gluconate 4.65 meq/ Magnesium Sulfate 6 meq/ Multivitamins 10 ml/Chromium/ Copper/Manganese/ Zinc 1 ml/Amino Acids/Dextrose/ Purified Water 1,697.5 ml @ 71 mls/hr [id number] IV 03/23/25 22:00 03/24/25 21:59 03/23/25 22:57 71 MLS/HR Sucralfate 1 gm QID@0600,1130,1700,2200 GT 03/23/25 17:00 03/24/25 06:01 1 GM Lactulose 15 ml DAILY PO 03/24/25 10:00 03/24/25 10:29 15 ML objective The patient is well-nourished and well-developed with no distress. The patient is intubated MENTAL STATUS: Subjective CRANIAL NERVES: Pupils are equal, round and reactive. There is conjugated eye movement. Motor sensory examination on bilateral trigeminal distribution is fine, No signs of facial weakness. There are gagging or coughing reflexes oral and airway care SENSATION: Okay to touch MOTOR: Normal tone in the upper and lower extremity. Normal muscle bulk. No fasciculations. Moves the left arm REFLEXES: Deep tendon reflexes are symmetrical, 4/4 in the knees and ankles. No pathological reflexes. CEREBELLAR/COORDINATION: Deferred GAIT/STATION: deferred. laboratory and microbiology Laboratory Tests 03/24/25 02:00 Test 03/24/25 02:00 Range/Units Serum Glucose 114 H 74-106 mg/dL Problem List Altered mental status Metabolic encephalopathy secondary to sepsis, septic shock, hypernatremia Hypoxic encephalopathy Peptic ulcer, GI bleeding, anemia Respiratory failure New multiple strokes in different arterial territories (MRI 03/18/25) Multiple chronic strokes Maybe secondary to history methamphetamine, cocaine, alcohol use History of alcohol abuse History of cocaine, methamphetamine abuse Assessment/Plan Monitoring Supportive treatment ICU care Stabilize vitals Respiratory support/vent management Follow-up labs IV antibiotics Aspirin 81 mg daily later Lipitor later TPN Thiamine supplementation Folic acid supplementation GI service on case Nephrology service on case More recommended per clinical course This medical document was created using an electronic medical record system with [employer] dictation system. Although this document has been carefully reviewed, there may still be some phonetic and typographical errors. These areas are purely typographical due to imperfect Prognosis guarded Dietary Evaluation Review Recommendations by RD: Increase Calorie Intake, PPN/TPN Comments: Pt meets criteria 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 based on severe wt loss 35lb/24% in 5 month, intake <50% estimated requirement x 5 days, severe muscle wasting and fat depletion Nutrition Recommendation: 1) PPN/TPN if NPO continues 2) Advance to soft diet as medically feasible 3) Ensure Enlive 240ml TID if pt resumes PO diet 4) Monitor NPO status, lab values, weight trend, and I/O Expected Outcomes/Goals: Intake to meet >75% estimated needs GI symptoms to improve Fu 2-3 days Food and Nutrition Intake (Sev: <50% est energy req 5days Interpretation of weight loss: >10% in 6 months Body Fat Depletion (Severe): Mod to Severe Depletion Muscle Mass (Severe): Mod to Severe Depletion Protein Calorie Malnutrition: Severe Is there a minimum of two crit: Yes Plan discussed with: Other CC Plasma Assessment Blood Product Administration S: [id number] LEANDRO BLACK MD Mar 24, 2025 10:33
--- NOTE | 2025-03-24 10:34 | DVHPN2 ---
Progress Note Date Seen: Mar 24, 2025 Resident Creating Document: RONALDO RAWLS NICOLE Has the PT tested + for MRSA If YES, has PT been informed?: No Medical Necessity Reason Pt with a Central, PICC or Fol: Yes The following are medically ne: Central Line, Barrios Catheter Subjective Review of Systems Patient seen and examined at the bedside. Patient is remained intubated and on mechanical ventilation. Review of Systems: RESPIRATORY:Abnormal Other Systems: Patient seen and examined by myself today on rounds with the medicine resident, I agree with his assessment and plan Patient remained intubated on ventilator Objective vital signs Vital Sign Date Time Temp Pulse Resp B/P (MAP) Pulse Ox O2 Delivery O2 Flow Rate FiO2 03/24/25 09:00 85 22 138/82 (100) 100 30 03/24/25 06:30 80.8 177.4 03/24/25 06:00 Mechanical Ventilator+ Total Intake and Output 03/23/25 03/23/25 03/24/25 15:00 23:00 07:00 Intake Total 954.2 ml 736.5 ml 706.5 ml Output Total 1350 ml 750 ml Balance 954.2 ml -613.5 ml -43.5 ml medications Current Medications Medications Dose Ordered Sig/Wally Route Start Time Stop Time Status Last Admin Dose Admin Ondansetron HCl 4 mg Q4HP PRN IV 03/12/25 00:00 Hydralazine HCl 10 mg Q6HP PRN IV 03/12/25 17:30 03/23/25 05:19 10 MG Lorazepam 1 mg Q8HP PRN IV 03/12/25 21:45 03/12/25 21:58 1 MG Ceftriaxone Sodium 50 ml @ 100 mls/hr DAILY@09 IV 03/13/25 09:00 03/24/25 10:30 100 MLS/HR Metronidazole 100 ml @ 100 mls/hr Q8HR IV 03/13/25 14:00 03/24/25 06:01 100 MLS/HR Midazolam HCl 100 ml @ 1 mls/hr Q24H IV 03/16/25 16:30 03/23/25 14:52 2 MLS/HR Fentanyl Citrate 250 ml @ 2.5 mls/hr Q24H IV 03/16/25 16:30 03/24/25 04:00 15 MLS/HR Diagnostic Test (Pha) 1 strip Q6HR 03/16/25 18:00 03/24/25 06:02 1 STRIP Insulin Human Regular FOLLOW SLIDING SCALE Q6HR SC 03/16/25 18:00 03/21/25 12:18 2 UNITS Dextrose 50 ml UD IV 03/16/25 17:15 Amino Acids 0 ml @ 0 mls/hr PER PHARMACY IV 03/16/25 17:15 Pantoprazole Sodium 50 ml @ 10 mls/hr Q5H IV 03/16/25 17:15 03/24/25 10:30 10 MLS/HR Folic Acid 1 mg/ Dextrose 50.2 ml @ 200.8 mls/ hr DAILY INJ 03/17/25 10:00 03/23/25 10:00 200.8 MLS/HR Thiamine HCl 100 mg DAILY IV 03/18/25 10:00 03/24/25 10:28 100 MG Atorvastatin Calcium 40 mg HS PO 03/17/25 22:00 Hold Enteral Nutritional Formula 1,000 ml 20 ML/HR NG 03/21/25 16:00 03/21/25 22:08 1,000 ML Metoclopramide HCl 5 mg Q8HR IV 03/22/25 14:00 03/24/25 06:02 5 MG Fat Emulsion Intravenous 100 ml/Potassium Acetate 40 meq/ Potassium Phosphate 22 meq/ Calcium Gluconate 4.65 meq/ Magnesium Sulfate 6 meq/ Multivitamins 10 ml/Chromium/ Copper/Manganese/ Zinc 1 ml/Amino Acids/Dextrose/ Purified Water 1,697.5 ml @ 71 mls/hr [id number] IV 03/23/25 22:00 03/24/25 21:59 03/23/25 22:57 71 MLS/HR Sucralfate 1 gm QID@0600,1130,1700,2200 GT 03/23/25 17:00 03/24/25 06:01 1 GM Lactulose 15 ml DAILY PO 03/24/25 10:00 03/24/25 10:29 15 ML Examination General: RASS -1, afebrile, mucosae are dry, cachectic Cardiovascular: Normal S1 and S2. No murmurs, gallops or rubs Respiratory: Mechanically assisted ventilation, equal bilateral airway entree. Clear lung sounds on auscultation Mechanical ventilation setting: GI: Soft, nontender, no organomegaly, normal bowel sounds : Barrios catheter n place, clear yellow urine in collection bag MSK/skin: Mobilization of limbs cannot be evaluated. Skin is dry and warm. IV accesses: Neurological: Orientation cannot be assessed. No apparent motor no sensitive deficits. Pupils are isocoric and reactive laboratory and microbiology Laboratory Tests 03/24/25 02:00 Test 03/24/25 02:00 Range/Units Serum Glucose 114 H 74-106 mg/dL Microbiology Date/Time Source Procedure Growth Status 03/16/25 16:36 Nose MRSA Screen - Final Complete 03/16/25 16:06 Sputum Gram Stain - Final Complete 03/16/25 16:06 Respiratory Culture - Final Stenotrophomonas maltophilia Escherichia coli Presumptive Milady albicans Complete 03/13/25 11:53 Stool Stool Culture - Final Complete 03/13/25 11:53 Stool Shiga Toxin I & II - Final Complete 03/12/25 11:55 Urine - Barrios Port Urine Culture - Final Complete 03/11/25 15:36 Blood Blood Culture - Final NO GROWTH AFTER 5 DAYS OF INCUBATION. Complete Problem List/Assessment/Plan Problem List/Assessment/Plan 49 years old male with past medical history of CVA, dyslipidemia, hypertension, left knee surgery, Chronic kidney disease, history of severe Acute kidney injury needed inpatient dialysis previous admission here and then renal recovery presented with chief complaints of diarrhea for the past 5 to 6 days, he also has history of perforated duodenal ulcer status post exploratory laparotomy previous admission, cholecystitis, status post tracheostomy Patient presented to emergency room with hemoglobin of 4.2,s/p 3 U prbc,, s/p egd noted findings. Assessment: GIOVANI, on CKD 2, VMN Hypovolemic hypernatremia/dehydration Duodenal ulcer leading to GI bleeding and severe anemia, status post 3 PRBC transfusion History of CVA Recurrent CVA Hypertension C diff diarrhea Severe protein malnutrition/cachexia Hypokalemia Hypophosphatemia Plan/recommendation: (Dr. Anderson) * Kidney function is improving * Na level normalized [id number] * Replete potassium * Good urine output * Strict I&Os * We will follow up with the patient Thank you for giving us the opportunity to take care of the outpatient. Please call back if you have any questions/concerns. Plan discussed with: Other (RN) Dietary Evaluation Review Recommendations by RD: Increase Calorie Intake, PPN/TPN Comments: Pt meets criteria 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 based on severe wt loss 35lb/24% in 5 month, intake <50% estimated requirement x 5 days, severe muscle wasting and fat depletion Nutrition Recommendation: 1) PPN/TPN if NPO continues 2) Advance to soft diet as medically feasible 3) Ensure Enlive 240ml TID if pt resumes PO diet 4) Monitor NPO status, lab values, weight trend, and I/O Expected Outcomes/Goals: Intake to meet >75% estimated needs GI symptoms to improve Fu 2-3 days Food and Nutrition Intake (Sev: <50% est energy req 5days Interpretation of weight loss: >10% in 6 months Body Fat Depletion (Severe): Mod to Severe Depletion Muscle Mass (Severe): Mod to Severe Depletion Protein Calorie Malnutrition: Severe Is there a minimum of two crit: Yes CC Plasma Assessment Blood Product Administration S: [id number] RONALDO RAWLS Mar 24, 2025 10:34 MILADY ANDERSON MD Mar 24, 2025 11:13
--- NOTE | 2025-03-24 15:40 | DVH ---
Technique: Real-time ultrasound imaging of the abdomen was performed with grayscale and color Doppler. Indication: R/O cholecystitis or CBD dilation Comparison: US LIVER on DOS: 03/12/25, US GALLBLADDER on DOS: 10/30/24, US LIVER on DOS: 10/09/24 Findings: Liver measures 14 cm. It is increased in echogenicity and echotexture without focal mass. Portal vein is normal in caliber and demonstrates normal hepatopetal flow. Gallbladder is completely distended with sludge. There is gallbladder wall thickening to 6 mm. There is pericholecystic edema. The common bile duct measures 16 mm. No intrahepatic biliary ductal dilatation. The right kidney measures 10.3 cm. There is no hydronephrosis or sonographic evidence of nephrolithiasis. The pancreas is obscured. Right pleural effusion. Impression: Gallbladder entirely distended with sludge with gallbladder wall thickening and pericholecystic edema, concerning for cholecystitis. Recommend surgical consultation HIDA scan. Dilated common bile duct measuring 16 mm which can be further evaluated with MRCP. Echogenic liver which can be seen with hepatic steatosis, cirrhosis. Right pleural effusion
--- NOTE | 2025-03-24 15:47 | DVHPNRES ---
Progress Note Date Seen: Mar 24, 2025 Resident Creating Document: SKY DASH RESIDENT Has the PT tested + for MRSA If YES, has PT been informed?: No Medical Necessity Reason Pt with a Central, PICC or Fol: Yes The following are medically ne: Central Line, Barrios Catheter Subjective Review of Systems Jossue Perez he is a 49-year-old male past medical history of hypertension, hyperlipidemia, DVT, 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 The patient mentions he had passage of stool 7 times yesterday which was tarry black in color. Patient mentions he also had abdominal pain, nausea and a few episodes of vomiting for the last 2 days. He denies any fever,weakness or weight loss. He reports history of perforated duodenal ulcer s/p exp lap with prolonged ICU stay complicated with sepsis from cholecystitis s/p tracheostomy and removal. On arrival to the hospital, his hemoglobin was 4.2 and he had to be transfused with 2 units of PRBCs. He was kept NPO and NG tube placed. GI was consulted and they recommended continuing with IV Protonix drip scheduled patient for EGD on 03/13/2025. Patient was seen and examined on the bedside. He is on mechanical ventilation with FiO2 30%, Tidal volume 450 mL, respiratory rate 20, peep 5. GRV is 200 ml resembled coffee-ground color and the tube feeding at 10 mL/hours as per GI . H&H 7.4/22.8 . bowel movement last night which was brown in color. Discontinued IV ceftriaxone, metronidazole today. Sedation vacation and scheduled for CPAP trial tomorrow. Objective vital signs Vital Sign Date Time Temp Pulse Resp B/P (MAP) Pulse Ox O2 Delivery O2 Flow Rate FiO2 03/24/25 15:00 99.1 83 23 149/88 (108) 100 210.4 03/24/25 14:13 30 03/24/25 14:00 Mechanical Ventilator+ Total Intake and Output 03/23/25 03/23/25 03/24/25 15:00 23:00 07:00 Intake Total 954.2 ml 736.5 ml 880.5 ml Output Total 1350 ml 750 ml Balance 954.2 ml -613.5 ml 130.5 ml medications Current Medications Medications Dose Ordered Sig/Wally Route Start Time Stop Time Status Last Admin Dose Admin Ondansetron HCl 4 mg Q4HP PRN IV 03/12/25 00:00 Hydralazine HCl 10 mg Q6HP PRN IV 03/12/25 17:30 03/23/25 05:19 10 MG Lorazepam 1 mg Q8HP PRN IV 03/12/25 21:45 03/12/25 21:58 1 MG Midazolam HCl 100 ml @ 1 mls/hr Q24H IV 03/16/25 16:30 03/23/25 14:52 2 MLS/HR Fentanyl Citrate 250 ml @ 2.5 mls/hr Q24H IV 03/16/25 16:30 03/24/25 04:00 15 MLS/HR Diagnostic Test (Pha) 1 strip Q6HR 03/16/25 18:00 03/24/25 12:00 1 STRIP Insulin Human Regular FOLLOW SLIDING SCALE Q6HR SC 03/16/25 18:00 03/21/25 12:18 2 UNITS Dextrose 50 ml UD IV 03/16/25 17:15 Amino Acids 0 ml @ 0 mls/hr PER PHARMACY IV 03/16/25 17:15 Pantoprazole Sodium 50 ml @ 10 mls/hr Q5H IV 03/16/25 17:15 03/24/25 15:29 10 MLS/HR Folic Acid 1 mg/ Dextrose 50.2 ml @ 200.8 mls/ hr DAILY INJ 03/17/25 10:00 03/24/25 10:51 200.8 MLS/HR Thiamine HCl 100 mg DAILY IV 03/18/25 10:00 03/24/25 10:28 100 MG Atorvastatin Calcium 40 mg HS PO 03/17/25 22:00 Hold Enteral Nutritional Formula 1,000 ml 20 ML/HR NG 03/21/25 16:00 03/21/25 22:08 1,000 ML Metoclopramide HCl 5 mg Q8HR IV 03/22/25 14:00 03/24/25 15:36 5 MG Fat Emulsion Intravenous 100 ml/Potassium Acetate 40 meq/ Potassium Phosphate 22 meq/ Calcium Gluconate 4.65 meq/ Magnesium Sulfate 6 meq/ Multivitamins 10 ml/Chromium/ Copper/Manganese/ Zinc 1 ml/Amino Acids/Dextrose/ Purified Water 1,697.5 ml @ 71 mls/hr [id number] IV 03/23/25 22:00 03/24/25 21:59 03/23/25 22:57 71 MLS/HR Sucralfate 1 gm QID@0600,1130,1700,2200 GT 03/23/25 17:00 03/24/25 11:30 1 GM Lactulose 15 ml DAILY PO 03/24/25 10:00 03/24/25 10:29 15 ML Fat Emulsion Intravenous 100 ml/Potassium Acetate 60 meq/ Potassium Phosphate 22 meq/ Calcium Gluconate 4.65 meq/ Magnesium Sulfate 6 meq/ Multivitamins 10 ml/Chromium/ Copper/Manganese/ Zinc 1 ml/Amino Acids/Dextrose/ Purified Water 1,707.5 ml @ 71 mls/hr Q24H3M IV 03/24/25 22:00 03/25/25 21:59 Examination Examination General: RASS -1, afebrile, mucosae are moist Cardiovascular: Normal S1 and S2. No murmurs, gallops or rubs Respiratory: Mechanically assisted ventilation, equal bilateral airway entree. Clear lung sounds on auscultation Abdomen: Soft, nontender, no organomegaly, normal bowel sounds MSK/skin: Mobilization of limbs cannot be evaluated. Skin is dry and warm. Neurological: Orientation cannot be assessed. No apparent motor no sensitive deficits. Pupils are isocoric and reactive laboratory and microbiology Laboratory Tests 03/24/25 02:00 Test 03/24/25 02:00 Range/Units Serum Glucose 114 H 74-106 mg/dL Microbiology Date/Time Source Procedure Growth Status 03/16/25 16:36 Nose MRSA Screen - Final Complete 03/16/25 16:06 Sputum Gram Stain - Final Complete 03/16/25 16:06 Respiratory Culture - Final Stenotrophomonas maltophilia Escherichia coli Presumptive Milady albicans Complete 03/13/25 11:53 Stool Stool Culture - Final Complete 03/13/25 11:53 Stool Shiga Toxin I & II - Final Complete 03/12/25 11:55 Urine - Barrios Port Urine Culture - Final Complete 03/11/25 15:36 Blood Blood Culture - Final NO GROWTH AFTER 5 DAYS OF INCUBATION. Complete Labs and/or images reviewed: Labs reviewed by me Problem List/Assessment/Plan Problem List/Assessment/Plan Assessment and plan : NEURO: Acute metabolic encephalopathy secondary to acute ischemic stroke Acute or subacute ischemic stroke RASS score: - 1 - CT head without contrast demonstrated new medial right parieto-occipital focal region of diminished parenchymal attenuation within the medial right parietal occipital lobes. This is concerning for an acute to subacute infarct with chronic multifocal lacunar infarct - MRI showed Infarcts involving multiple vascular territories involved medial right occipital lobe, posterior left occipital lobe, and left lopes radiata white matter tracts. Few additional tiny foci of diffusion restriction at the anterior right parietal cortex. - Neurology on board - hold aspirin and Plavix for now because of GI bleeding - hold atorvastatin as patient is NPO CARDIOVASCULAR: Chronic diastolic heart failure with preserved ejection fraction - Echo on 11/12 demonstrated EF 65%, MILD LVH AND MILD LV DIASTOLIC DYSFUNCTION - elevated BNP - CxR showed Bilateral interstitial opacities, small left basilar consolidation and pleural effusion PULMONARY: Acute hypoxic respiratory failure S/P intubation GASTROINTESTINAL: Acute GI bleed upper vs lower Partial small Intestinal obstruction likely secondary to fecal impaction. Cholelithiasis C diff positive Transaminitis likely secondary to low hepatic perfusion Elevated alkaline phosphatase -CT abdomen/pelvis showed low-grade distal partial obstruction due to fecal retention. - Gastrograffin study showed Contrast is identified within the colon by 3 hours. No evidence of bowel obstruction. -EGD on 03/13/25 showed 1-2 cm sliding-type hiatal hernia with severe grade C linear erosive esophagitis with esophageal ulcers extending into the distal 15 cm of the esophagus persistent duodenal bulb ulcer seen just inside the pyloric opening which was large coalescing with a visible sutures; there was no active bleeding or visible vessel but there was acute on chronic inflammation deformity of the postbulbar duodenal area and I was able to see the 2nd part of the duodenum but there was area of debris and ongoing chronic ulceration inflammation and the endoscope was not advanced beyond this area mild gastritis and some old coffee-ground within the stomach - Ordered gallbladder ultrasound - NPO - Tube feeding at 10 mL/hours - IV Protonix drip - Carafate suspension 1 g q.i.d. - Zofran 4 mg IV q.4 PRN - IV metoclopramide 5 mg Q 8 hours - Discontinued IV ceftriaxone and metronidazole - GI and surgery are on the board - pending bleeding scan as patient is intubated and on mechanical ventilation - Monitor Hand H, transfuse if hemoglobin less than 7 GENITOURINARY: GIOVANI on CKD likely hemodynamically mediated/VMN - Nephrology on board - Monitor BMP METABOLIC: Hypernatremia Hypokalemia Hypophosphatemia - replaced potassium and phosphate - monitor BMP HEME: Severe microcytic hypochromic anemia due to GI bleeding Iron deficiency due to above Bilateral superficial thrombophlebitis - Patient received 4 units of PRBC - Monitor H&H INFECTIOUS DISEASE: Acute C diff infection - hold po vanc because of upper GI bleeding DIET: TPN, Tube feeding DVT prophylax: SCD GI prophylaxis: Protonix drip Bowel regimen: Lactulose Code status: Full code LINES/DRAINS/ACCESS: ETT: Intubated on 03/16/2025 IV access: Right IJ placed on 03/16/2025 Drips: Fentanyl, Versed, Protonix drip, TPN, tube feeding Barrios catheter: DISPOSITION: ICU Patient's status discussed with RN, Critical care time spent more than 72 minutes, including patient care, chart review, and updating the family. Excluding any procedures. Case discussed with Dr. Humphrey Plan discussed with: Spouse, Other (RN) My Orders My Orders Orders - SKY DASH RESIDENT Procedure Category Date Status Time Lactulose Oral PHA 03/24/25 In Process 10:00 Chest Portable XY 03/24/25 Resulted 04:00 Abg W/ Co-Ox RT 03/24/25 Logged 04:00 Amino Acid PHA 03/24/25 In Process Infusion... W/Fat 22:00 Comprehensive LAB 03/25/25 Verified Metabolic Panel 05:00 Magnesium LAB 03/25/25 Verified 05:00 Phosphorus LAB 03/25/25 Verified 05:00 Tpn Per Pharmacy CINTH[facility] 03/24/25 In Process 22:00 Cpap Trial For Am ORDERS 03/24/25 Transmitted 14:28 Cpap/Sed Vacation Med ORDERS 03/24/25 Transmitted Weaning 14:28 Dietary Evaluation Review Recommendations by RD: Increase Calorie Intake, PPN/TPN Comments: Pt meets criteria 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 based on severe wt loss 35lb/24% in 5 month, intake <50% estimated requirement x 5 days, severe muscle wasting and fat depletion Nutrition Recommendation: 1) PPN/TPN if NPO continues 2) Advance to soft diet as medically feasible 3) Ensure Enlive 240ml TID if pt resumes PO diet 4) Monitor NPO status, lab values, weight trend, and I/O Expected Outcomes/Goals: Intake to meet >75% estimated needs GI symptoms to improve Fu 2-3 days Food and Nutrition Intake (Sev: <50% est energy req 5days Interpretation of weight loss: >10% in 6 months Body Fat Depletion (Severe): Mod to Severe Depletion Muscle Mass (Severe): Mod to Severe Depletion Protein Calorie Malnutrition: Severe Is there a minimum of two crit: Yes CC Plasma Assessment Blood Product Administration S: [id number] Date of Service: Mar 24, 2025 Billing Provider: ELVIN WHATLEY MD Common Visit Codes: [id number] INP/OBS CARE(HIGH) SKY DASH RESIDENT Mar 24, 2025 15:47 ELVIN WHATLEY MD Mar 31, 2025 23:55
[2025-03-24 15:59] LABS: Hematocrit 24.8 % (41.0-53.0); Hemoglobin 7.9 g/dL (13.5-17.5)
--- NOTE | 2025-03-24 17:51 | DVHPN2 ---
Progress Note Date Seen: Mar 24, 2025 Resident Creating Document: RENAEAnaYVESKEILA RESIDENT Has the PT tested + for MRSA If YES, has PT been informed?: No Medical Necessity Reason Pt with a Central, PICC or Fol: Yes The following are medically ne: Central Line, Barrios Catheter Subjective Review of Systems Patient seen and examined at bedside Residuals about 200 mL Q shift , dark brown in color Reported to have 2 bowel movements On tube feedings, we will increase to 20 mL/hour H&H keeping above 7 Objective vital signs Vital Sign Date Time Temp Pulse Resp B/P (MAP) Pulse Ox O2 Delivery O2 Flow Rate FiO2 03/24/25 17:00 99.0 91 22 99 210.2 03/24/25 16:05 30 03/24/25 16:00 Mechanical Ventilator+ Total Intake and Output 03/23/25 03/23/25 03/24/25 14:59 22:59 06:59 Intake Total 942.2 ml 645.5 ml 892.0 ml Output Total 1350 ml 750 ml Balance 942.2 ml -704.5 ml 142.0 ml medications Current Medications Medications Dose Ordered Sig/Wally Route Start Time Stop Time Status Last Admin Dose Admin Ondansetron HCl 4 mg Q4HP PRN IV 03/12/25 00:00 Hydralazine HCl 10 mg Q6HP PRN IV 03/12/25 17:30 03/23/25 05:19 10 MG Lorazepam 1 mg Q8HP PRN IV 03/12/25 21:45 03/12/25 21:58 1 MG Midazolam HCl 100 ml @ 1 mls/hr Q24H IV 03/16/25 16:30 03/23/25 14:52 2 MLS/HR Fentanyl Citrate 250 ml @ 2.5 mls/hr Q24H IV 03/16/25 16:30 03/24/25 04:00 15 MLS/HR Diagnostic Test (Pha) 1 strip Q6HR 03/16/25 18:00 03/24/25 12:00 1 STRIP Insulin Human Regular FOLLOW SLIDING SCALE Q6HR SC 03/16/25 18:00 03/21/25 12:18 2 UNITS Dextrose 50 ml UD IV 03/16/25 17:15 Amino Acids 0 ml @ 0 mls/hr PER PHARMACY IV 03/16/25 17:15 Pantoprazole Sodium 50 ml @ 10 mls/hr Q5H IV 03/16/25 17:15 03/24/25 15:29 10 MLS/HR Folic Acid 1 mg/ Dextrose 50.2 ml @ 200.8 mls/ hr DAILY INJ 03/17/25 10:00 03/24/25 10:51 200.8 MLS/HR Thiamine HCl 100 mg DAILY IV 03/18/25 10:00 03/24/25 10:28 100 MG Atorvastatin Calcium 40 mg HS PO 03/17/25 22:00 Hold Enteral Nutritional Formula 1,000 ml 20 ML/HR NG 03/21/25 16:00 03/21/25 22:08 1,000 ML Metoclopramide HCl 5 mg Q8HR IV 03/22/25 14:00 03/24/25 15:36 5 MG Fat Emulsion Intravenous 100 ml/Potassium Acetate 40 meq/ Potassium Phosphate 22 meq/ Calcium Gluconate 4.65 meq/ Magnesium Sulfate 6 meq/ Multivitamins 10 ml/Chromium/ Copper/Manganese/ Zinc 1 ml/Amino Acids/Dextrose/ Purified Water 1,697.5 ml @ 71 mls/hr [id number] IV 03/23/25 22:00 03/24/25 21:59 03/23/25 22:57 71 MLS/HR Sucralfate 1 gm QID@0600,1130,1700,2200 GT 03/23/25 17:00 03/24/25 17:14 1 GM Lactulose 15 ml DAILY PO 03/24/25 10:00 03/24/25 10:29 15 ML Fat Emulsion Intravenous 100 ml/Potassium Acetate 60 meq/ Potassium Phosphate 22 meq/ Calcium Gluconate 4.65 meq/ Magnesium Sulfate 6 meq/ Multivitamins 10 ml/Chromium/ Copper/Manganese/ Zinc 1 ml/Amino Acids/Dextrose/ Purified Water 1,707.5 ml @ 71 mls/hr Q24H3M IV 03/24/25 22:00 03/25/25 21:59 Examination Gen - mild conjunctival pallor, no scleral icterus Skin - Patients skin is warm and dry. HEENT - normocephalic, atraumatic, dry mucous membranes. Neck - supple, no lymphadenopathy Pulmonary - B/L equal air entry cardiovascular - regular S1,S2 heard GI - soft abdomen. Bowel sounds hypoactive. Neurological - Patient is sedated and on mechanical ventilation laboratory and microbiology Laboratory Tests 03/24/25 15:40 03/24/25 02:00 Test 03/24/25 02:00 Range/Units Serum Glucose 114 H 74-106 mg/dL Microbiology Date/Time Source Procedure Growth Status 03/16/25 16:36 Nose MRSA Screen - Final Complete 03/16/25 16:06 Sputum Gram Stain - Final Complete 03/16/25 16:06 Respiratory Culture - Final Stenotrophomonas maltophilia Escherichia coli Presumptive Milady albicans Complete 03/13/25 11:53 Stool Stool Culture - Final Complete 03/13/25 11:53 Stool Shiga Toxin I & II - Final Complete 03/12/25 11:55 Urine - Barrios Port Urine Culture - Final Complete 03/11/25 15:36 Blood Blood Culture - Final NO GROWTH AFTER 5 DAYS OF INCUBATION. Complete Problem List/Assessment/Plan Problem List/Assessment/Plan Assessment Upper GI bleeding likely from persistent duodenal ulcer Duodenal ulcer disease History of perforated duodenal ulcer s/p surgical repair Hiatal hernia Severe grade C linear erosive esophagitis with esophageal ulcers C. difficile colitis Elevated liver enzymes Severe anemia New multiple stroke in different arterial territories (MRI 03/18/25) Multiple chronic strokes GIOVANI on CKD likely due to VMN, improving Transaminitis Pneumonia Plan Continue on Protonix drip increase tube feeding to 20 mL per hour check residuals Q shift Monitor H&H, transfuse if HGB less than 7 LFTs improving, increased ALP likely from TPN IV metronidazole and ceftriaxone Hold off on anticoagulation and antiplatelet drugs because of likely active GI bleed Continue on TPN Plan discussed with Dr. Stoddard Plan discussed with: Other (JASPER Rea/Caprice) Dietary Evaluation Review Recommendations by RD: Increase Calorie Intake, PPN/TPN Comments: Pt meets criteria 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 based on severe wt loss 35lb/24% in 5 month, intake <50% estimated requirement x 5 days, severe muscle wasting and fat depletion Nutrition Recommendation: 1) PPN/TPN if NPO continues 2) Advance to soft diet as medically feasible 3) Ensure Enlive 240ml TID if pt resumes PO diet 4) Monitor NPO status, lab values, weight trend, and I/O Expected Outcomes/Goals: Intake to meet >75% estimated needs GI symptoms to improve Fu 2-3 days Food and Nutrition Intake (Sev: <50% est energy req 5days Interpretation of weight loss: >10% in 6 months Body Fat Depletion (Severe): Mod to Severe Depletion Muscle Mass (Severe): Mod to Severe Depletion Protein Calorie Malnutrition: Severe Is there a minimum of two crit: Yes CC Plasma Assessment Blood Product Administration S: [id number] RICHARD TOSCANO RESIDENT Mar 24, 2025 17:50
--- NOTE | 2025-03-24 18:50 | DVHPN2 ---
Subjective DOS: 03/24/2025 Patient seen and examined at bedside. Sedated, intubated on mechanical ventilator. Overnight events reviewed. Changes from previous H/P or p: No Changes Eyes: No Pain, No Vision change, No Conjunctivae inflammation, No Eyelid inflammation, No Other, No Redness ENT: No Ear pain, No Ear discharge, No Nose pain, No Nose discharge, No Nose congestion, No Mouth pain, No Mouth swelling, No Throat pain, No Throat swelling, No Other Cardiovascular: No Chest Pain, No Palpitations, No Orthopnea, No Paroxysmal Noc. Dyspnea, No Edema, No Lt Headedness, No Other Respiratory: No Cough, No Dry, No Shortness of breath, No SOB with excertion, No Wheezing, No Hemoptysis, No Pleuritic Pain, No Sputum, No Other Gastrointestinal: Melena Musculoskeletal: No other, No neck pain, No shoulder pain, No arm pain, No back pain, No hand pain, No leg pain, No foot pain Skin: No Rash, No Lesions, No Jaundice, No Bruising, No Other Objective Vitals Vital Signs Date Time Temp Pulse Resp B/P (MAP) Pulse Ox O2 Delivery O2 Flow Rate FiO2 03/24/25 18:15 99.1 83 22 144/89 (107) 100 210.4 03/24/25 18:14 30 03/24/25 18:00 Mechanical Ventilator+ Intake/Output Intake and Output 03/24/25 07:00 Intake Total 2571.2 ml Output Total 2100 ml Balance 471.2 ml IV Total 2353.2 ml Tube Feeding 218 ml Output Urine Total 2100 ml Exam Gen.: Patient lying in bed in medical ICU. Sedated, intubated on mechanical ventilator. Head: Normocephalic, atraumatic. Eyes: PERRLA. Ears: Normal external anatomy. Throat: Endotracheal tube and orogastric tube in place. Neck: Supple, trachea midline. Chest: Transmitted breath sounds bilaterally. Decreased air entry bilaterally. No wheezing. Bibasilar crackles. Cardiovascular: Positive S1, positive S2. Regular rate and rhythm. Abdomen: Positive bowel sounds in all 4 quadrants. Soft, nontender, nondistended. : Barrios in place. Normal external genitalia. Rectal: Deferred. Skin: Warm, dry. Intact. Extremities: 2+ radial pulses bilaterally. No lower extremity edema. Neuro: Sedated. Medications Current Medications Medications Dose Ordered Sig/Wally Route Start Time Stop Time Status Last Admin Dose Admin Ondansetron HCl 4 mg Q4HP PRN IV 03/12/25 00:00 Hydralazine HCl 10 mg Q6HP PRN IV 03/12/25 17:30 03/23/25 05:19 10 MG Lorazepam 1 mg Q8HP PRN IV 03/12/25 21:45 03/12/25 21:58 1 MG Midazolam HCl 100 ml @ 1 mls/hr Q24H IV 03/16/25 16:30 03/23/25 14:52 2 MLS/HR Fentanyl Citrate 250 ml @ 2.5 mls/hr Q24H IV 03/16/25 16:30 03/24/25 04:00 15 MLS/HR Diagnostic Test (Pha) 1 strip Q6HR 03/16/25 18:00 03/24/25 18:20 1 STRIP Insulin Human Regular FOLLOW SLIDING SCALE Q6HR SC 03/16/25 18:00 03/21/25 12:18 2 UNITS Dextrose 50 ml UD IV 03/16/25 17:15 Amino Acids 0 ml @ 0 mls/hr PER PHARMACY IV 03/16/25 17:15 Pantoprazole Sodium 50 ml @ 10 mls/hr Q5H IV 03/16/25 17:15 03/24/25 15:29 10 MLS/HR Folic Acid 1 mg/ Dextrose 50.2 ml @ 200.8 mls/ hr DAILY INJ 03/17/25 10:00 03/24/25 10:51 200.8 MLS/HR Thiamine HCl 100 mg DAILY IV 03/18/25 10:00 03/24/25 10:28 100 MG Atorvastatin Calcium 40 mg HS PO 03/17/25 22:00 Hold Enteral Nutritional Formula 1,000 ml 20 ML/HR NG 03/21/25 16:00 03/21/25 22:08 1,000 ML Metoclopramide HCl 5 mg Q8HR IV 03/22/25 14:00 03/24/25 15:36 5 MG Fat Emulsion Intravenous 100 ml/Potassium Acetate 40 meq/ Potassium Phosphate 22 meq/ Calcium Gluconate 4.65 meq/ Magnesium Sulfate 6 meq/ Multivitamins 10 ml/Chromium/ Copper/Manganese/ Zinc 1 ml/Amino Acids/Dextrose/ Purified Water 1,697.5 ml @ 71 mls/hr [id number] IV 03/23/25 22:00 03/24/25 21:59 03/23/25 22:57 71 MLS/HR Sucralfate 1 gm QID@0600,1130,1700,2200 GT 03/23/25 17:00 03/24/25 17:14 1 GM Lactulose 15 ml DAILY PO 03/24/25 10:00 03/24/25 10:29 15 ML Fat Emulsion Intravenous 100 ml/Potassium Acetate 60 meq/ Potassium Phosphate 22 meq/ Calcium Gluconate 4.65 meq/ Magnesium Sulfate 6 meq/ Multivitamins 10 ml/Chromium/ Copper/Manganese/ Zinc 1 ml/Amino Acids/Dextrose/ Purified Water 1,707.5 ml @ 71 mls/hr Q24H3M IV 03/24/25 22:00 03/25/25 21:59 Laboratory Results Laboratory Tests 03/24/25 02:00 03/24/25 15:40 Chemistry Test 03/24/25 02:00 Albumin 2.2 g/dL (3.2-4.8) L Calcium Level 7.7 mg/dL (8.7-10.4) L Magnesium Level 2.2 mg/dL (1.6-2.6) Phosphorus Level 3.4 mg/dL (2.4-5.1) Total Protein 5.0 g/dL (5.7-8.2) L LFT Test 03/24/25 02:00 Alanine Aminotransferase (ALT) 135 U/L (7-40) H Alkaline Phosphatase 598 U/L (46-116) H Aspartate Amino Transferase (AST) 77 U/L (13-40) H Total Bilirubin 0.4 mg/dL (0.2-1.0) Urinalysis Test 03/12/25 05:00 03/12/25 10:20 03/17/25 06:30 Urine Color Light-yellow (Yellow) Urine Clarity Clear (Clear) Urine pH 5.5 (5.0-9.0) Urine Specific [place] 1.013 (1.001-1.035) Urine Protein Trace (Negative) H Urine Ketones Trace (Negative) Urine Blood Negative /uL (Negative) Urine Nitrite Negative (Negative) Urine Bilirubin Negative (Negative) Urine Urobilinogen Normal mg/dL (Negative) Urine Leukocyte Esterase Negative /uL (Negative) Urine RBC <1 /hpf (0 - 3) Urine Microscopic WBC < 1 /HPF (0-3) Urine Squamous Epithelial Cells None seen /hpf (<5) Urine Bacteria None seen /hpf (None Seen) Urine Glucose Normal mg/dL (Normal) Urine Protein/Creatinine Ratio 2.26 Urine Total Protein 23.6 mg/dL (1-14) H Urine Creatinine 56.14 mg/dL (30.0-125.0) Urine Sodium 13 mmol/L (40-220) L Blood Gas Results Test 03/24/25 06:03 Arterial Blood pH 7.315 (7.350-7.450) FiO2 % 30.0 Microbiology Microbiology Date/Time Source Procedure Growth Status 03/16/25 16:36 Nose MRSA Screen - Final Complete 03/16/25 16:06 Sputum Gram Stain - Final Complete 03/16/25 16:06 Respiratory Culture - Final Stenotrophomonas maltophilia Escherichia coli Presumptive Milady albicans Complete 03/13/25 11:53 Stool Stool Culture - Final Complete 03/13/25 11:53 Stool Shiga Toxin I & II - Final Complete 03/12/25 11:55 Urine - Barrios [place] Urine Culture - Final Complete 03/11/25 15:36 Blood Blood Culture - Final NO GROWTH AFTER 5 DAYS OF INCUBATION. Complete Assessment/Plan Assessment/Plan Impression: Acute hypoxic respiratory failure On mechanical ventilator Acute metabolic encephalopathy Multiple strokes Chronic diastolic heart failure with preserved EF GI hemorrhage Anemia GIOVANI on CKD Events: Remains on vent support On AC mode; RR 20, VT 500, PEEP 5, FiO2 30% Taper FiO2 as tolerated Sedated on Versed, Fentanyl Continue antibiotics Continue IV fluids Continue Protonix drip Sucralfate Continue to monitor hemoglobin closely - 7.4, 7.9 g/dL Transfuse if less than 7.0 g/dL. Dark gastric residuals noted Follow up GI recommendations TPN/tube feeds for nutritional support Awaiting GI clearance to consider CPAP. Labs and imaging reviewed. Rest of plan as noted below. Plan: s/p intubation on mechanical ventilator. On AC mode; RR 20, VT 500, PEEP 5, FiO2 30% Titrate FIO2 to keep O2 saturation above 90%. VAP bundle. Daily ABG and CXR while intubated Sedate for ventilator synchrony Continue antibiotics. Follow up cultures. Pressors as necessary for hemodynamic support Titrate to keep mean arterial pressure greater than 65 mmHg. Monitor hemoglobin Transfuse if less than 7.0 g/dL. NGT to LIS Protonix drip F/u GI and Surgery recs Accu-Cheks, ISS PRN Monitor renal function Monitor electrolytes. Supplement as necessary. Monitor ins and outs. Maintain euvolemia. TPN for nutritional support Counseled against vaping and marijuana use. GI prophylaxis. DVT prophylaxis. Prognosis: Poor given patient's multiple co-morbidities. Condition: Critical Rest of plan per hospitalist and other consultants. A total of 35 minutes of critical care time was spent reviewing the patient record, examining the patient, making a diagnostic and therapeutic plan, discussing this plan with the medical personnel, following up on diagnostic studies and following the patient for clinical stability excluding any and all procedures. At least 50% of this time was spent in direct, [id number] contact. Thank you, Dr. Khoury, for allowing me to participate in this patient's care. Further recommendations will depend on the patient's clinical course. Please do not hesitate to contact me if you have any questions or concerns. This medical document was created using an electronic medical record system with [employer] dictation system. Although these documentations are being carefully reviewed, there may still be some phonetic and typographical changes. The errors are purely typographical, due to imperfection on the software program, and do not reflect any compromise in the patient's medical care. Plan discussed with: Other (JASPER Rea) Visit Coding Pulmonary Billing Provider: ARIE LOPEZ MD Date of Service if different f: Mar 24, 2025 Common Visit Codes: [id number] INP/OBS CARE(HIGH), [id number] CARE 30-74 MIN ARIE LOPEZ MD Mar 24, 2025 18:50
[2025-03-24] MEDS: DEXMEDETOMIDINE HCL IN D5W 100 ML IV SCH (21:32)
[2025-03-24] MEDS: TPN PER PHARMACY IV NR (21:44)
[2025-03-25] VITALS (107 sets, daily range): BP systolic 115–198; BP diastolic 61–137; PULSE 69–126; RESP 20–29; TEMP 98.7–99.1; O2SAT 96–100
[2025-03-25 04:20] LABS: Hemoglobin 7.6 g/dL (13.5-17.5); Nucleated Red Blood Cells % 0.0 %
[2025-03-25 04:22] LABS: Hematocrit 23.1 % (41.0-53.0); Mean Corpuscular Hemoglobin 27.6 pg (28.0-32.0); Mean Corpuscular Volume 84.1 fL (80.0-100.0)
[2025-03-25 04:44] LABS: Anion Gap 9 (5-15); BUN/Creatinine Ratio 33.3 (10.0-20.0); Carbon Dioxide 27 mmol/L (20-31); Chloride 104 mmol/L (98-107); Magnesium 2.0 mg/dL (1.6-2.6); Potassium 3.9 mmol/L (3.5-5.1); Sodium 140 mmol/L (136-145)
[2025-03-25 04:45] LABS: Alanine Aminotransferase 108 U/L (7-40); Albumin 2.2 g/dL (3.2-4.8); Alkaline Phosphatase 546 U/L (46-116); Blood Urea Nitrogen 42 mg/dL (9-23); Calcium 7.8 mg/dL (8.7-10.4); Glucose 111 mg/dL (74-106); Total Protein 5.2 g/dL (5.7-8.2)
[2025-03-25 04:46] LABS: Bilirubin, Total 0.3 mg/dL (0.2-1.0)
--- NOTE | 2025-03-25 04:46 | DVH ---
CHEST RADIOGRAPH Indication: Mechanical ventillation Technique: Single frontal view of the chest was obtained COMPARISON: XY CHEST PORTABLE on DOS: 03/24/25, XY CHEST PORTABLE on DOS: 03/23/25, XY CHEST XRAY 1 VIEW on DOS: 03/22/25, XY CHEST PORTABLE on DOS: 03/21/25, XY CHEST PORTABLE on DOS: 03/20/25 FINDINGS: Lines and Tubes: Endotracheal tube, enteric catheter and right central venous catheter in satisfactory position. Lungs: Unchanged pulmonary vascular congestion. Pleura: Unchanged small left pleural effusion. No pneumothorax. Cardiomediastinal contours: Unremarkable Bones: Unremarkable IMPRESSION: Lines and tubes in satisfactory position. No significant interval change.
[2025-03-25 06:12] LABS: Base Excess -0.1 mmol/L (-2.0-3.0)
--- NOTE | 2025-03-25 10:09 | DVHPN2 ---
Progress Note - Dictate Date Seen: Mar 25, 2025 Has the PT tested + for MRSA If YES, has PT been informed?: No Medical Necessity Reason Pt with a Central, PICC or Fol: Yes The following are medically ne: Central Line, Barrios Catheter Subjective Mr. Perez is a 49 years old right-handed gentleman with a history of hypertension, dyslipidemia, multiple strokes, DVT, he was brought to the [facility] on 03/11/2025 with a chief complaint of diarrhea, history is obtained from his , the chart review I saw him on 08/23/2023 for TIA, 10/27/2024 for encephalopathy I have seen and examined the patient, I have talked to his nurse, he is intubated, follows verbal commands, stroke in the yesterday, he tracks a little bit, but he does not move the extremities, He only moves the left arm Precedex 0.3 mcg/hour per kg Stool occult blood, 03/13/2025: Positive UDS, 03/12/2025: Negative Plasma alcohol, 03/12/2025: <3 Urinalysis, 03/12/2025: WBC: One, urine leukocyte esterase: Negative ABG, 03/16/25: Hypoxia, respiratory acidosis WBC/Hb/PLT'/MCV, 03/16/25: 10.l 6/7.9/339/82.4 Na, 03/11/2025: 129, 03/12/2025: 130, 129, 03/15/25: 145, 03/16/25: 142 BUNs/CR, 08/22/2023: 15/1.45, 03/11/2025: 55/1.77, 03/13/2025: 43/1.58, 02/2725: 65/2.56 GFR, 08/22/2023: 59 TBI/AST/ALT/AP,: 0.8/269/450/398 TG/CHO L/LDL/HDL, 08/2023: 136/166/111/39 Vitamin B12, 03/12/25: 852 Folic acid, 03/12/2025: 12.28 TSH, 08/23/2023: 4.25 Ultrasound, 03/24/2025: Gallbladder entirely distended with sludge with gallbladder wall thickening and pericholecystic edema, concerning for cholecystitis. Recommend surgical consultation HIDA scan. Dilated common bile duct measuring 16 mm which can be further evaluated with MRCP. Echogenic liver which can be seen with hepatic steatosis, cirrhosis. Right pleural effusion Extremity venous study, right arm, 11/09/2024: Thrombus is seen in the cephalic vein in the forearm. DONAL, 08/23/2023: 1. No evidence of intracardiac source of embolus in the study conducted today. 2. Normal valves without significant masses or change vegetations were discernible. 3. No evidence of intra-atrial shunting by bubble study and color Doppler. 4. Mild atherosclerotic plaquing was visualized in the arch of the aorta without evidence of dissection in the visualized part EGD, 03/13/2025: 1. 1-2 cm sliding-type hiatal hernia with severe grade C linear erosive esophagitis with esophageal ulcers extending into the distal 15 cm of the esophagus 2. Patient had a persistent duodenal bulb ulcer seen just inside the pyloric opening which was large coalescing with a visible sutures; there was no active bleeding or visible vessel but there was acute on chronic inflammation 3. Patient had deformity of the postbulbar duodenal area and I was able to see the 2nd part of the duodenum but there was area of debris and ongoing chronic ulceration inflammation and the endoscope was not advanced beyond this area 3. Patient had mild gastritis and some old coffee-ground within the stomach Chest x-ray, 03/12/2025: Mild chronic appearing left basilar pulmonary airspace disease and possible small pleural effusion Chest x-ray, 03/13/2025: 1. Enteric tube terminates in the stomach. 2. Worsening bilateral interstitial and alveolar opacities. Chest x-ray, : Endotracheal tube and right IJ approach central venous catheters are in satisfactory position. Trace [id number]-right pleural effusions with right retro lower lung zone linear atelectasis/ fluid within the fissure. CT head, 10/24/2024: 1. No intracranial hemorrhage or mass effect. 2. [id number]-rm-rndphsyk chronic microvascular ischemic changes. 3. Old bilateral basal ganglia lacunar infarcts. 4. Small bilateral mastoid effusions. CT head, 03/17/2025: 1. New medial right parieto-occipital focal region of diminished parenchymal attenuation within the medial right parietal occipital lobes. This is concerning for an acute to subacute infarct. Recommend further evaluation with MRI. 2. No evidence of acute intracranial hemorrhage, mass effect or hydrocephalus. 3. Chronic sequelae of microangiopathy and atrophic cortical volume loss.4. Multifocal chronic lacunar infarcts as outlined above. CT abdomen/pelvis, 10/04/2024: 1. Extensive intra-abdominal free air concerning for perforated viscus. Surgical consultation is recommended. 2. Enteritis is seen in multiple loops of small bowel in the left hemiabdomen. 3. Moderate abdominopelvic ascites. 4. Small right pleural effusion. CTA neck, head, 08/22/2023:1. CTA head demonstrates no evidence of large vessel occlusion, aneurysm, or significant stenosis. 2. CTA neck demonstrates no evidence of carotid or vertebral dissection or significant stenosis. 3. No noncontrast CT head was performed. 4. Additional findings as detailed above MRI head, 08/23/2023: No acute infarct, intracranial hemorrhage, mass effect, or hydrocephalus. Moderate periventricular and deep subcortical white matter T2 hyperintensities which are nonspecific, but most likely related to sequela of chronic microvascular ischemic changes (I have reviewed the MRI films with our in-house radiologist, Dr. Black, the patient had bilateral multiple subacute/chronic infarcts) MRI head, 11/01/2024: No acute cerebrovascular ischemia. [id number] chronic microvascular ischemic changes. Bilateral mastoid effusions. Old bilateral basal ganglia / lopes radiata infarcts. MR head, 03/16/2025: Infarcts involving multiple vascular territories as described. vital signs Vital Sign Date Time Temp Pulse Resp B/P (MAP) Pulse Ox O2 Delivery O2 Flow Rate FiO2 03/25/25 09:55 119 26 133/75 (94) 98 30 03/25/25 06:00 Mechanical Ventilator+ 03/25/25 04:00 98.9 98.9 Total Intake and Output 03/24/25 03/24/25 03/25/25 15:00 23:00 07:00 Intake Total 642 ml 766 ml 864.2 ml Output Total 750 ml 900 ml Balance 642 ml 16 ml -35.8 ml medications Current Medications Medications Dose Ordered Sig/Wally Route Start Time Stop Time Status Last Admin Dose Admin Ondansetron HCl 4 mg Q4HP PRN IV 03/12/25 00:00 Hydralazine HCl 10 mg Q6HP PRN IV 03/12/25 17:30 03/23/25 05:19 10 MG Lorazepam 1 mg Q8HP PRN IV 03/12/25 21:45 03/12/25 21:58 1 MG Midazolam HCl 100 ml @ 1 mls/hr Q24H IV 03/16/25 16:30 03/23/25 14:52 2 MLS/HR Fentanyl Citrate 250 ml @ 2.5 mls/hr Q24H IV 03/16/25 16:30 03/24/25 20:41 15 MLS/HR Diagnostic Test (Pha) 1 strip Q6HR 03/16/25 18:00 03/25/25 06:00 1 STRIP Insulin Human Regular FOLLOW SLIDING SCALE Q6HR SC 03/16/25 18:00 03/21/25 12:18 2 UNITS Dextrose 50 ml UD IV 03/16/25 17:15 Amino Acids 0 ml @ 0 mls/hr PER PHARMACY IV 03/16/25 17:15 Pantoprazole Sodium 50 ml @ 10 mls/hr Q5H IV 03/16/25 17:15 03/25/25 08:09 10 MLS/HR Folic Acid 1 mg/ Dextrose 50.2 ml @ 200.8 mls/ hr DAILY INJ 03/17/25 10:00 03/24/25 10:51 200.8 MLS/HR Thiamine HCl 100 mg DAILY IV 03/18/25 10:00 03/24/25 10:28 100 MG Atorvastatin Calcium 40 mg HS PO 03/17/25 22:00 Hold Enteral Nutritional Formula 1,000 ml 20 ML/HR NG 03/21/25 16:00 03/21/25 22:08 1,000 ML Sucralfate 1 gm QID@0600,1130,1700,2200 GT 03/23/25 17:00 03/25/25 06:36 1 GM Fat Emulsion Intravenous 100 ml/Potassium Acetate 60 meq/ Potassium Phosphate 22 meq/ Calcium Gluconate 4.65 meq/ Magnesium Sulfate 6 meq/ Multivitamins 10 ml/Chromium/ Copper/Manganese/ Zinc 1 ml/Amino Acids/Dextrose/ Purified Water 1,707.5 ml @ 71 mls/hr Q24H3M IV 03/24/25 22:00 03/25/25 21:59 03/24/25 21:44 71 MLS/HR objective The patient is well-nourished and well-developed with no distress. The patient is intubated MENTAL STATUS: Subjective CRANIAL NERVES: Pupils are equal, round and reactive. There is conjugated eye movement. Motor sensory examination on bilateral trigeminal distribution is fine, No signs of facial weakness. There are gagging or coughing reflexes oral and airway care SENSATION: Okay to touch MOTOR: Normal tone in the upper and lower extremity. Normal muscle bulk. No fasciculations. Moves the left arm REFLEXES: Deep tendon reflexes are symmetrical, 4/4 in the knees and ankles. No pathological reflexes. CEREBELLAR/COORDINATION: Deferred GAIT/STATION: deferred. laboratory and microbiology Laboratory Tests 03/25/25 03:50 Test 03/25/25 03:50 Range/Units Serum Glucose 111 H 74-106 mg/dL Problem List Altered mental status Metabolic encephalopathy secondary to sepsis, septic shock, hypernatremia Hypoxic encephalopathy Peptic ulcer, GI bleeding, anemia Respiratory failure New multiple strokes in different arterial territories (MRI 03/18/25) Multiple chronic strokes Maybe secondary to history methamphetamine, cocaine, alcohol use History of alcohol abuse History of cocaine, methamphetamine abuse Assessment/Plan Monitoring Supportive treatment ICU care Stabilize vitals Respiratory support/vent management Follow-up labs IV antibiotics Aspirin 81 mg daily later Lipitor later TPN Thiamine supplementation Folic acid supplementation GI service on case Nephrology service on case More recommended per clinical course This medical document was created using an electronic medical record system with [employer] dictation system. Although this document has been carefully reviewed, there may still be some phonetic and typographical errors. These areas are purely typographical due to imperfect Prognosis Guarded Dietary Evaluation Review Recommendations by RD: Increase Calorie Intake, PPN/TPN Comments: Pt meets criteria 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 based on severe wt loss 35lb/24% in 5 month, intake <50% estimated requirement x 5 days, severe muscle wasting and fat depletion Nutrition Recommendation: 1) PPN/TPN if NPO continues 2) Advance to soft diet as medically feasible 3) Ensure Enlive 240ml TID if pt resumes PO diet 4) Monitor NPO status, lab values, weight trend, and I/O Expected Outcomes/Goals: Intake to meet >75% estimated needs GI symptoms to improve Fu 2-3 days Food and Nutrition Intake (Sev: <50% est energy req 5days Interpretation of weight loss: >10% in 6 months Body Fat Depletion (Severe): Mod to Severe Depletion Muscle Mass (Severe): Mod to Severe Depletion Protein Calorie Malnutrition: Severe Is there a minimum of two crit: Yes Plan discussed with: Other Critical Care Time(min): 30 CC Plasma Assessment Blood Product Administration S: [id number] LEANDRO BLACK MD Mar 25, 2025 10:09
--- NOTE | 2025-03-25 10:35 | DVHPNRES ---
Progress Note Date Seen: Mar 25, 2025 Resident Creating Document: SKY DASH RESIDENT Has the PT tested + for MRSA If YES, has PT been informed?: No Medical Necessity Reason Pt with a Central, PICC or Fol: Yes The following are medically ne: Central Line, Barrios Catheter Subjective Review of Systems Jossue Perez he is a 49-year-old male past medical history of hypertension, hyperlipidemia, DVT, 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 The patient mentions he had passage of stool 7 times yesterday which was tarry black in color. Patient mentions he also had abdominal pain, nausea and a few episodes of vomiting for the last 2 days. He denies any fever,weakness or weight loss. He reports history of perforated duodenal ulcer s/p exp lap with prolonged ICU stay complicated with sepsis from cholecystitis s/p tracheostomy and removal. On arrival to the hospital, his hemoglobin was 4.2 and he had to be transfused with 2 units of PRBCs. He was kept NPO and NG tube placed. GI was consulted and they recommended continuing with IV Protonix drip scheduled patient for EGD on 03/13/2025. Patient was seen and examined on the bedside. He is on mechanical ventilation with FiO2 30%, Tidal volume 450 mL, respiratory rate 20, peep 5. The patient was on CPAP trial today, get exhausted, tachycardic, not able to pull any volume and later put back on AC mode. H/H 7.6/23.1. Liver ultrasound demonstrated acute cholecystitis with a dilated CBD 16 mm. MRCP is not possible now because patient is intubated and on mechanical ventilation. Surgery was consulted for further management of acute cholecystitis and he reviewed the image and mentioned that no intervention is needed now as there is no pericholecystic fluid or any sign of inflammation around gallbladder . The patient is tolerating tube feeding as 20 mL/hours and we are also continuing TPN. GI recommended no invasive procedure, slowly increase tube feeding as tolerated. The patient is scheduled for CPAP trial tomorrow . Objective vital signs Vital Sign Date Time Temp Pulse Resp B/P (MAP) Pulse Ox O2 Delivery O2 Flow Rate FiO2 03/25/25 09:55 119 26 133/75 (94) 98 30 03/25/25 06:00 Mechanical Ventilator+ 03/25/25 04:00 98.9 98.9 Total Intake and Output 03/24/25 03/24/25 03/25/25 15:00 23:00 07:00 Intake Total 642 ml 766 ml 864.2 ml Output Total 750 ml 900 ml Balance 642 ml 16 ml -35.8 ml medications Current Medications Medications Dose Ordered Sig/Wally Route Start Time Stop Time Status Last Admin Dose Admin Ondansetron HCl 4 mg Q4HP PRN IV 03/12/25 00:00 Hydralazine HCl 10 mg Q6HP PRN IV 03/12/25 17:30 03/23/25 05:19 10 MG Lorazepam 1 mg Q8HP PRN IV 03/12/25 21:45 03/12/25 21:58 1 MG Midazolam HCl 100 ml @ 1 mls/hr Q24H IV 03/16/25 16:30 03/23/25 14:52 2 MLS/HR Fentanyl Citrate 250 ml @ 2.5 mls/hr Q24H IV 03/16/25 16:30 03/24/25 20:41 15 MLS/HR Diagnostic Test (Pha) 1 strip Q6HR 03/16/25 18:00 03/25/25 06:00 1 STRIP Insulin Human Regular FOLLOW SLIDING SCALE Q6HR SC 03/16/25 18:00 03/21/25 12:18 2 UNITS Dextrose 50 ml UD IV 03/16/25 17:15 Amino Acids 0 ml @ 0 mls/hr PER PHARMACY IV 03/16/25 17:15 Pantoprazole Sodium 50 ml @ 10 mls/hr Q5H IV 03/16/25 17:15 03/25/25 08:09 10 MLS/HR Folic Acid 1 mg/ Dextrose 50.2 ml @ 200.8 mls/ hr DAILY INJ 03/17/25 10:00 03/25/25 10:21 200.8 MLS/HR Thiamine HCl 100 mg DAILY IV 03/18/25 10:00 03/25/25 10:20 100 MG Atorvastatin Calcium 40 mg HS PO 03/17/25 22:00 Hold Enteral Nutritional Formula 1,000 ml 20 ML/HR NG 03/21/25 16:00 03/21/25 22:08 1,000 ML Sucralfate 1 gm QID@0600,1130,1700,2200 GT 03/23/25 17:00 03/25/25 10:19 1 GM Fat Emulsion Intravenous 100 ml/Potassium Acetate 60 meq/ Potassium Phosphate 22 meq/ Calcium Gluconate 4.65 meq/ Magnesium Sulfate 6 meq/ Multivitamins 10 ml/Chromium/ Copper/Manganese/ Zinc 1 ml/Amino Acids/Dextrose/ Purified Water 1,707.5 ml @ 71 mls/hr Q24H3M IV 03/24/25 22:00 03/25/25 21:59 03/24/25 21:44 71 MLS/HR Fat Emulsion Intravenous 100 ml/Potassium Acetate 50 meq/ Potassium Phosphate 22 meq/ Calcium Gluconate 4.65 meq/ Magnesium Sulfate 7 meq/ Multivitamins 10 ml/Chromium/ Copper/Manganese/ Zinc 1 ml/Amino Acids/Dextrose/ Purified Water 1,702.75 ml @ 71 mls/hr [id number] IV 03/25/25 22:00 03/26/25 21:59 Examination Examination General: RASS -1, afebrile, mucosae are moist Cardiovascular: Normal S1 and S2. No murmurs, gallops or rubs Respiratory: Mechanically assisted ventilation, equal bilateral airway entree. Clear lung sounds on auscultation Abdomen: Soft, nontender, no organomegaly, normal bowel sounds MSK/skin: Mobilization of limbs cannot be evaluated. Skin is dry and warm. Neurological: Orientation cannot be assessed. No apparent motor no sensitive deficits. Pupils are isocoric and reactive laboratory and microbiology Laboratory Tests 03/25/25 03:50 Test 03/25/25 03:50 Range/Units Serum Glucose 111 H 74-106 mg/dL Microbiology Date/Time Source Procedure Growth Status 03/16/25 16:36 Nose MRSA Screen - Final Complete 03/16/25 16:06 Sputum Gram Stain - Final Complete 03/16/25 16:06 Respiratory Culture - Final Stenotrophomonas maltophilia Escherichia coli Presumptive Milady albicans Complete 03/13/25 11:53 Stool Stool Culture - Final Complete 03/13/25 11:53 Stool Shiga Toxin I & II - Final Complete 03/12/25 11:55 Urine - Barrios Port Urine Culture - Final Complete 03/11/25 15:36 Blood Blood Culture - Final NO GROWTH AFTER 5 DAYS OF INCUBATION. Complete Labs and/or images reviewed: Labs reviewed by me, Image(s) reviewed by me Problem List/Assessment/Plan Problem List/Assessment/Plan Assessment and plan : NEURO: Acute metabolic encephalopathy secondary to acute ischemic stroke Acute or subacute ischemic stroke RASS score: - 1 - CT head without contrast demonstrated new medial right parieto-occipital focal region of diminished parenchymal attenuation within the medial right parietal occipital lobes. This is concerning for an acute to subacute infarct with chronic multifocal lacunar infarct - MRI showed Infarcts involving multiple vascular territories involved medial right occipital lobe, posterior left occipital lobe, and left lopes radiata white matter tracts. Few additional tiny foci of diffusion restriction at the anterior right parietal cortex. - Neurology on board - hold aspirin and Plavix for now because of GI bleeding - hold atorvastatin as patient is NPO CARDIOVASCULAR: Chronic diastolic heart failure with preserved ejection fraction - Echo on 11/12 demonstrated EF 65%, MILD LVH AND MILD LV DIASTOLIC DYSFUNCTION - elevated BNP - CxR showed Bilateral interstitial opacities, small left basilar consolidation and pleural effusion PULMONARY: Acute hypoxic respiratory failure S/P intubation GASTROINTESTINAL: Acute GI bleed upper vs lower Partial small Intestinal obstruction likely secondary to fecal impaction. Cholelithiasis C diff positive Transaminitis likely secondary to low hepatic perfusion Elevated alkaline phosphatase -CT abdomen/pelvis showed low-grade distal partial obstruction due to fecal retention. - Gastrograffin study showed Contrast is identified within the colon by 3 hours. No evidence of bowel obstruction. -EGD on 03/13/25 showed 1-2 cm sliding-type hiatal hernia with severe grade C linear erosive esophagitis with esophageal ulcers extending into the distal 15 cm of the esophagus persistent duodenal bulb ulcer seen just inside the pyloric opening which was large coalescing with a visible sutures; there was no active bleeding or visible vessel but there was acute on chronic inflammation deformity of the postbulbar duodenal area and I was able to see the 2nd part of the duodenum but there was area of debris and ongoing chronic ulceration inflammation and the endoscope was not advanced beyond this area mild gastritis and some old coffee-ground within the stomach - Ordered gallbladder ultrasound - NPO - Tube feeding at 10 mL/hours - IV Protonix drip - Carafate suspension 1 g q.i.d. - Zofran 4 mg IV q.4 PRN - Discontinued IV ceftriaxone and metronidazole - GI and surgery are on the board - pending bleeding scan as patient is intubated and on mechanical ventilation - Monitor Hand H, transfuse if hemoglobin less than 7 GENITOURINARY: GIOVANI on CKD likely hemodynamically mediated/VMN - Nephrology on board - Monitor BMP METABOLIC: Hypernatremia Hypokalemia Hypophosphatemia - monitor BMP HEME: Severe microcytic hypochromic anemia due to GI bleeding Iron deficiency due to above Bilateral superficial thrombophlebitis - Patient received 4 units of PRBC - Monitor H&H INFECTIOUS DISEASE: Acute C diff infection - hold po vanc because of upper GI bleeding DIET: TPN, Tube feeding DVT prophylax: SCD GI prophylaxis: Protonix drip Bowel regimen: Code status: Full code LINES/DRAINS/ACCESS: ETT: Intubated on 03/16/2025 IV access: Right IJ placed on 03/16/2025 Drips: Fentanyl, Versed, Protonix drip, TPN, tube feeding Barrios catheter: DISPOSITION: ICU Patient's status discussed with RN, Critical care time spent more than 73 minutes, including patient care, chart review, and updating the family. Excluding any procedures. Case discussed with Dr. Garcia Plan discussed with: Spouse, Other (RN) My Orders My Orders Orders - SKY DASH RESIDENT Procedure Category Date Status Time Amino Acid PHA 03/24/25 In Process Infusion... W/Fat 22:00 Tpn Per Pharmacy [facility] 03/24/25 In Process 22:00 Cpap Trial For Am ORDERS 03/24/25 Transmitted 14:28 Cpap/Sed Vacation Med ORDERS 03/24/25 Transmitted Weaning 14:28 Chest Portable XY 03/25/25 Resulted 04:00 Abg W/ Co-Ox RT 03/25/25 Logged 04:00 Ventilator Setup RT 03/24/25 Logged 15:53 * Surgical Consult CONS 03/24/25 Transmitted Ventilator Orders RT 03/25/25 Transmitted 05:35 Amino Acid PHA 03/25/25 In Process Infusion... W/Fat 22:00 Comprehensive LAB 03/26/25 Verified Metabolic Panel 05:00 Magnesium LAB 03/26/25 Verified 05:00 Phosphorus LAB 03/26/25 Verified 05:00 Tpn Per Pharmacy [facility] 03/25/25 In Process 22:00 Dietary Evaluation Review Recommendations by RD: Increase Calorie Intake, PPN/TPN Comments: Pt meets criteria 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 based on severe wt loss 35lb/24% in 5 month, intake <50% estimated requirement x 5 days, severe muscle wasting and fat depletion Nutrition Recommendation: 1) PPN/TPN if NPO continues 2) Advance to soft diet as medically feasible 3) Ensure Enlive 240ml TID if pt resumes PO diet 4) Monitor NPO status, lab values, weight trend, and I/O Expected Outcomes/Goals: Intake to meet >75% estimated needs GI symptoms to improve Fu 2-3 days Food and Nutrition Intake (Sev: <50% est energy req 5days Interpretation of weight loss: >10% in 6 months Body Fat Depletion (Severe): Mod to Severe Depletion Muscle Mass (Severe): Mod to Severe Depletion Protein Calorie Malnutrition: Severe Is there a minimum of two crit: Yes CC Plasma Assessment Blood Product Administration S: [id number] Date of Service: Mar 25, 2025 Billing Provider: DIANA GARCIA MD Common Visit Codes: [id number] CARE 30-74 MIN SKY DASH RESIDENT Mar 25, 2025 10:34
--- NOTE | 2025-03-25 10:51 | DVHPN2 ---
Progress Note Date Seen: Mar 25, 2025 Resident Creating Document: RONALDO RAWLS NICOLE Has the PT tested + for MRSA If YES, has PT been informed?: No Medical Necessity Reason Pt with a Central, PICC or Fol: Yes The following are medically ne: Central Line, Brarios Catheter Subjective Review of Systems Patient seen and examined at the bedside. Patient is remained intubated and on mechanical ventilation. Other Systems: Patient seen and examined by myself today on rounds with the medicine resident, I agree with the assessment and plan Objective vital signs Vital Sign Date Time Temp Pulse Resp B/P (MAP) Pulse Ox O2 Delivery O2 Flow Rate FiO2 03/25/25 09:55 119 26 133/75 (94) 98 30 03/25/25 06:00 Mechanical Ventilator+ 03/25/25 04:00 98.9 98.9 Total Intake and Output 03/24/25 03/24/25 03/25/25 15:00 23:00 07:00 Intake Total 642 ml 766 ml 864.2 ml Output Total 750 ml 900 ml Balance 642 ml 16 ml -35.8 ml medications Current Medications Medications Dose Ordered Sig/Wally Route Start Time Stop Time Status Last Admin Dose Admin Ondansetron HCl 4 mg Q4HP PRN IV 03/12/25 00:00 Hydralazine HCl 10 mg Q6HP PRN IV 03/12/25 17:30 03/23/25 05:19 Lorazepam 1 mg Q8HP PRN IV 03/12/25 21:45 03/12/25 21:58 Midazolam HCl 100 ml @ 1 mls/hr Q24H IV 03/16/25 16:30 03/23/25 14:52 Fentanyl Citrate 250 ml @ 2.5 mls/hr Q24H IV 03/16/25 16:30 03/24/25 20:41 Diagnostic Test (Pha) 1 strip Q6HR 03/16/25 18:00 03/25/25 06:00 Insulin Human Regular FOLLOW SLIDING SCALE Q6HR SC 03/16/25 18:00 03/21/25 12:18 Dextrose 50 ml UD IV 03/16/25 17:15 Amino Acids 0 ml @ 0 mls/hr PER PHARMACY IV 03/16/25 17:15 Pantoprazole Sodium 50 ml @ 10 mls/hr Q5H IV 03/16/25 17:15 03/25/25 08:09 Folic Acid 1 mg/ Dextrose 50.2 ml @ 200.8 mls/ hr DAILY INJ 03/17/25 10:00 03/25/25 10:21 Thiamine HCl 100 mg DAILY IV 03/18/25 10:00 03/25/25 10:20 Atorvastatin Calcium 40 mg HS PO 03/17/25 22:00 Hold Enteral Nutritional Formula 1,000 ml 20 ML/HR NG 03/21/25 16:00 03/21/25 22:08 Sucralfate 1 gm QID@0600,1130,1700,2200 GT 03/23/25 17:00 03/25/25 10:19 Fat Emulsion Intravenous 100 ml/Potassium Acetate 60 meq/ Potassium Phosphate 22 meq/ Calcium Gluconate 4.65 meq/ Magnesium Sulfate 6 meq/ Multivitamins 10 ml/Chromium/ Copper/Manganese/ Zinc 1 ml/Amino Acids/Dextrose/ Purified Water 1,707.5 ml @ 71 mls/hr Q24H3M IV 03/24/25 22:00 03/25/25 21:59 03/24/25 21:44 Fat Emulsion Intravenous 100 ml/Potassium Acetate 50 meq/ Potassium Phosphate 22 meq/ Calcium Gluconate 4.65 meq/ Magnesium Sulfate 7 meq/ Multivitamins 10 ml/Chromium/ Copper/Manganese/ Zinc 1 ml/Amino Acids/Dextrose/ Purified Water 1,702.75 ml @ 71 mls/hr [id number] IV 03/25/25 22:00 03/26/25 21:59 Examination General: RASS -1, afebrile, mucosae are dry, cachectic Cardiovascular: Normal S1 and S2. No murmurs, gallops or rubs Respiratory: Mechanically assisted ventilation, equal bilateral airway entree. Clear lung sounds on auscultation Mechanical ventilation setting: GI: Soft, nontender, no organomegaly, normal bowel sounds : Barrios catheter n place, clear yellow urine in collection bag MSK/skin: Mobilization of limbs cannot be evaluated. Skin is dry and warm. IV accesses: Neurological: Orientation cannot be assessed. No apparent motor no sensitive deficits. Pupils are isocoric and reactive laboratory and microbiology Laboratory Tests 03/25/25 03:50 Test 03/25/25 03:50 Range/Units Serum Glucose 111 H 74-106 mg/dL Microbiology Date/Time Source Procedure Growth Status 03/16/25 16:36 Nose MRSA Screen - Final Complete 03/16/25 16:06 Sputum Gram Stain - Final Complete 03/16/25 16:06 Respiratory Culture - Final Stenotrophomonas maltophilia Escherichia coli Presumptive Milady albicans Complete 03/13/25 11:53 Stool Stool Culture - Final Complete 03/13/25 11:53 Stool Shiga Toxin I & II - Final Complete 03/12/25 11:55 Urine - Barrios Port Urine Culture - Final Complete 03/11/25 15:36 Blood Blood Culture - Final NO GROWTH AFTER 5 DAYS OF INCUBATION. Complete Labs and/or images reviewed: Labs reviewed by me, Image(s) reviewed by me Problem List/Assessment/Plan Problem List/Assessment/Plan 49 years old male with past medical history of CVA, dyslipidemia, hypertension, left knee surgery, Chronic kidney disease, history of severe Acute kidney injury needed inpatient dialysis previous admission here and then renal recovery presented with chief complaints of diarrhea for the past 5 to 6 days, he also has history of perforated duodenal ulcer status post exploratory laparotomy previous admission, cholecystitis, status post tracheostomy Patient presented to emergency room with hemoglobin of 4.2,s/p 3 U prbc,, s/p egd noted findings. Assessment: GIOVANI, on CKD 2, VMN Hypovolemic hypernatremia/dehydration Duodenal ulcer leading to GI bleeding and severe anemia, status post 3 PRBC transfusion History of CVA Recurrent CVA Hypertension C diff diarrhea Severe protein malnutrition/cachexia Hypokalemia Hypophosphatemia Plan/recommendation: (Dr. Anderson) * Kidney function is improving * Na level normalized appropriately * Replete potassium * Good urine output * Strict I&Os * We will follow up with the patient Thank you for giving us the opportunity to take care of the outpatient. Please call back if you have any questions/concerns. Plan discussed with: Patient, Other (RN) Dietary Evaluation Review Recommendations by RD: Increase Calorie Intake, PPN/TPN Comments: Pt meets criteria 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 based on severe wt loss 35lb/24% in 5 month, intake <50% estimated requirement x 5 days, severe muscle wasting and fat depletion Nutrition Recommendation: 1) PPN/TPN if NPO continues 2) Advance to soft diet as medically feasible 3) Ensure Enlive 240ml TID if pt resumes PO diet 4) Monitor NPO status, lab values, weight trend, and I/O Expected Outcomes/Goals: Intake to meet >75% estimated needs GI symptoms to improve Fu 2-3 days Food and Nutrition Intake (Sev: <50% est energy req 5days Interpretation of weight loss: >10% in 6 months Body Fat Depletion (Severe): Mod to Severe Depletion Muscle Mass (Severe): Mod to Severe Depletion Protein Calorie Malnutrition: Severe Is there a minimum of two crit: Yes CC Plasma Assessment Blood Product Administration S: [id number] RONALDO RAWLS Mar 25, 2025 10:51 MILADY ANDERSON MD Mar 25, 2025 12:00
--- NOTE | 2025-03-25 14:39 | DVHPN2 ---
Progress Note Date Seen: Mar 25, 2025 Resident Creating Document: RICHARD TOSCANO RESIDENT Has the PT tested + for MRSA If YES, has PT been informed?: No Medical Necessity Reason Pt with a Central, PICC or Fol: Yes The following are medically ne: Central Line, Barrios Catheter Subjective Review of Systems Patient seen and examined at the bedside H&H holding up between 7 and 8 Patient reported to have multiple bowel movements yesterday and rectal tube was inserted Patient failed CPAP On tube feeding, morning gastric residuals to 280 mL, we will continue feeding at 20 mL/hour Objective vital signs Vital Sign Date Time Temp Pulse Resp B/P (MAP) Pulse Ox O2 Delivery O2 Flow Rate FiO2 03/25/25 10:45 125 27 189/97 (127) 96 03/25/25 10:00 30 03/25/25 10:00 Mechanical Ventilator+ 03/25/25 08:00 98.7 98.7 Total Intake and Output 03/24/25 03/24/25 03/25/25 15:00 23:00 07:00 Intake Total 642 ml 766 ml 939.3 ml Output Total 750 ml 900 ml Balance 642 ml 16 ml 39.3 ml medications Current Medications Medications Dose Ordered Sig/Wally Route Start Time Stop Time Status Last Admin Dose Admin Ondansetron HCl 4 mg Q4HP PRN IV 03/12/25 00:00 Hydralazine HCl 10 mg Q6HP PRN IV 03/12/25 17:30 03/23/25 05:19 10 MG Lorazepam 1 mg Q8HP PRN IV 03/12/25 21:45 03/12/25 21:58 1 MG Midazolam HCl 100 ml @ 1 mls/hr Q24H IV 03/16/25 16:30 03/23/25 14:52 2 MLS/HR Fentanyl Citrate 250 ml @ 2.5 mls/hr Q24H IV 03/16/25 16:30 03/24/25 20:41 15 MLS/HR Diagnostic Test (Pha) 1 strip Q6HR 03/16/25 18:00 03/25/25 12:00 1 STRIP Insulin Human Regular FOLLOW SLIDING SCALE Q6HR SC 03/16/25 18:00 03/25/25 12:48 2 UNITS Dextrose 50 ml UD IV 03/16/25 17:15 Amino Acids 0 ml @ 0 mls/hr PER PHARMACY IV 03/16/25 17:15 Pantoprazole Sodium 50 ml @ 10 mls/hr Q5H IV 03/16/25 17:15 03/25/25 12:33 10 MLS/HR Folic Acid 1 mg/ Dextrose 50.2 ml @ 200.8 mls/ hr DAILY INJ 03/17/25 10:00 03/25/25 10:21 200.8 MLS/HR Thiamine HCl 100 mg DAILY IV 03/18/25 10:00 03/25/25 10:20 100 MG Atorvastatin Calcium 40 mg HS PO 03/17/25 22:00 Hold Enteral Nutritional Formula 1,000 ml 20 ML/HR NG 03/21/25 16:00 03/21/25 22:08 1,000 ML Sucralfate 1 gm QID@0600,1130,1700,2200 GT 03/23/25 17:00 03/25/25 10:19 1 GM Fat Emulsion Intravenous 100 ml/Potassium Acetate 60 meq/ Potassium Phosphate 22 meq/ Calcium Gluconate 4.65 meq/ Magnesium Sulfate 6 meq/ Multivitamins 10 ml/Chromium/ Copper/Manganese/ Zinc 1 ml/Amino Acids/Dextrose/ Purified Water 1,707.5 ml @ 71 mls/hr Q24H3M IV 03/24/25 22:00 03/25/25 21:59 03/24/25 21:44 71 MLS/HR Fat Emulsion Intravenous 100 ml/Potassium Acetate 50 meq/ Potassium Phosphate 22 meq/ Calcium Gluconate 4.65 meq/ Magnesium Sulfate 7 meq/ Multivitamins 10 ml/Chromium/ Copper/Manganese/ Zinc 1 ml/Amino Acids/Dextrose/ Purified Water 1,702.75 ml @ 71 mls/hr [id number] IV 03/25/25 22:00 03/26/25 21:59 Examination Gen - mild conjunctival pallor, no scleral icterus Skin - Patients skin is warm and dry. HEENT - normocephalic, atraumatic, dry mucous membranes. Neck - supple, no lymphadenopathy Pulmonary - B/L equal air entry cardiovascular - regular S1,S2 heard GI - soft abdomen. Bowel sounds normoactive Neurological - Patient is sedated and on mechanical ventilation laboratory and microbiology Laboratory Tests 03/25/25 03:50 Test 03/25/25 03:50 Range/Units Serum Glucose 111 H 74-106 mg/dL Microbiology Date/Time Source Procedure Growth Status 03/16/25 16:36 Nose MRSA Screen - Final Complete 03/16/25 16:06 Sputum Gram Stain - Final Complete 03/16/25 16:06 Respiratory Culture - Final Stenotrophomonas maltophilia Escherichia coli Presumptive Milady albicans Complete 03/13/25 11:53 Stool Stool Culture - Final Complete 03/13/25 11:53 Stool Shiga Toxin I & II - Final Complete 03/12/25 11:55 Urine - Barrios Port Urine Culture - Final Complete 03/11/25 15:36 Blood Blood Culture - Final NO GROWTH AFTER 5 DAYS OF INCUBATION. Complete Problem List/Assessment/Plan Problem List/Assessment/Plan Assessment Upper GI bleeding likely from persistent duodenal ulcer Duodenal ulcer disease History of perforated duodenal ulcer s/p surgical repair Hiatal hernia Severe grade C linear erosive esophagitis with esophageal ulcers C. difficile colitis Elevated liver enzymes Severe anemia New multiple stroke in different arterial territories (MRI 03/18/25) Multiple chronic strokes GIOVANI on CKD likely due to VMN, improving Transaminitis Pneumonia Plan Continue on Protonix drip Continue tube feeding at 20 mL per hour check residuals Q shift Monitor H&H, transfuse if HGB less than 7 LFTs improving, ALP high likely due to patient being on TPN IV metronidazole and ceftriaxone Hold off on anticoagulation and antiplatelet drugs because of likely active GI bleed Continue on TPN Plan discussed with Dr. Stoddard Plan discussed with: Other (JASPER Vasques) Dietary Evaluation Review Recommendations by RD: Increase Calorie Intake, PPN/TPN Comments: Pt meets criteria 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 based on severe wt loss 35lb/24% in 5 month, intake <50% estimated requirement x 5 days, severe muscle wasting and fat depletion Nutrition Recommendation: 1) PPN/TPN if NPO continues 2) Advance to soft diet as medically feasible 3) Ensure Enlive 240ml TID if pt resumes PO diet 4) Monitor NPO status, lab values, weight trend, and I/O Expected Outcomes/Goals: Intake to meet >75% estimated needs GI symptoms to improve Fu 2-3 days Food and Nutrition Intake (Sev: <50% est energy req 5days Interpretation of weight loss: >10% in 6 months Body Fat Depletion (Severe): Mod to Severe Depletion Muscle Mass (Severe): Mod to Severe Depletion Protein Calorie Malnutrition: Severe Is there a minimum of two crit: Yes CC Plasma Assessment Blood Product Administration S: [id number] RICHARD TOSCANO RESIDENT Mar 25, 2025 14:38
--- NOTE | 2025-03-25 16:15 | DVHINCON2 ---
Consultation - Surgical Date Seen: Mar 25, 2025 Referring Physician Reason for Consultation cholecystitis History of Present Illness History of Present Illness Mr. Perez is a 49 yo M who presented and was admitted to the hospital on 03/11 with GI bleed. He underwent a EGD on 03/13, that was remarkable for erosive esophagitis and duodenal ulcer without active bleeding. Since then he developed hypoxic respiratory failure and is currently intubated. I was consulted for the possibility of cholecystitis. Pt is under light sedation and w hen asked about abdominal pain, he said he didn't have any. Past Medical/Surgical History Past Medical/Surgical History past medical history of hypertension, hyperlipidemia, CVA in August of 2023 with no deficits, memory loss, History of DVT in her not taking any medication currently, left knee surgery, duodenal Ulcer Sx Allergies and medications Allergies: Coded Allergies: NO KNOWN ALLERGIES (Unverified , 08/22/23) Home Meds Active Scripts Hydralazine HCl (Hydralazine HCl) 25 Mg Tab, 25 MG PO BID for 30 Days, #60 TAB Prov:CHEYENNE PIKE STOCK PREPARATION OPERATOR 12/08/24 Labetalol HCl (Labetalol HCl) 200 Mg Tab, 200 MG PO BID for 30 Days, #60 TAB Prov:CHEYENNE PIKE STOCK PREPARATION OPERATOR 12/08/24 Nifedipine (Nifedipine Er) 60 Mg Tab, 2 TAB PO DAILY, #30 TAB 5 Refills Prov:CHEYENNE PIKE STOCK PREPARATION OPERATOR 12/08/24 Pantoprazole Sodium Sesquihydr (Protonix) 40 Mg Tab, 40 MG PO BID for 30 Days, #60 TAB Prov:CHEYENNE PIKE STOCK PREPARATION OPERATOR 12/08/24 Sucralfate (CARAFATE) 1 Gm Tab, 1 GM OR ACHS for 30 Days, #120 TAB Prov:CHEYENNE PIKE STOCK PREPARATION OPERATOR 12/08/24 Reported Medications Escitalopram Oxalate (ESCITALOPRAM OXALATE) 10 Mg Tab, 1 TAB PO DAILY for 30 Days, #30 10/06/24 Review of systems Review of Systems: Deferred Examination Vital signs Vital Signs Date Time Temp Pulse Resp B/P (MAP) Pulse Ox O2 Delivery O2 Flow Rate FiO2 03/25/25 14:40 85 22 126/74 (91) 99 30 03/25/25 14:00 Mechanical Ventilator+ 03/25/25 08:00 98.7 98.7 Medications Current Medications Medications (Trade) Dose Ordered Sig/Wally Route PRN Reason Start Time Stop Time Status Last Admin Fat Emulsion Intravenous 100 ml/Potassium Acetate 60 meq/ Potassium Phosphate 22 meq/ Calcium Gluconate 4.65 meq/ Magnesium Sulfate 6 meq/ Multivitamins 10 ml/Chromium/ Copper/Manganese/ Zinc 1 ml/Amino Acids/Dextrose/ Purified Water 1,707.5 ml @ 71 mls/hr Q24H3M IV 03/24/25 22:00 03/25/25 21:59 03/24/25 21:44 Fat Emulsion Intravenous 100 ml/Potassium Acetate 50 meq/ Potassium Phosphate 22 meq/ Calcium Gluconate 4.65 meq/ Magnesium Sulfate 7 meq/ Multivitamins 10 ml/Chromium/ Copper/Manganese/ Zinc 1 ml/Amino Acids/Dextrose/ Purified Water 1,702.75 ml @ 71 mls/hr [id number] IV 03/25/25 22:00 03/26/25 21:59 Laboratory Labs Test 03/25/25 12:30 03/25/25 06:07 03/25/25 03:50 03/18/25 14:10 Range/Units POC Glucose 142 H 70-106 mg/dl Blood Gas Specimen Type Arterial Blood Gas Sample Site Left radial Blood Gas Patient Temperature 37.0 Arterial Blood Date Drawn [id number] Arterial Blood pH 7.381 7.350-7.450 Arterial Blood Partial Pressure CO2 43.2 35.0-48.0 mmHg Arterial Blood Partial Pressure O2 111.4 H 83.0-108.0 mmHg Arterial Blood HCO3 25.0 21.0-28.0 mmol/L Arterial Blood Oxygen Saturation 98.0 94.0-98.0 % Arterial Blood Base Excess -0.1 -2.0-3.0 mmol/L Arterial Blood Oxyhemoglobin 96.9 94.0-98.0 % Arterial Blood Carboxyhemoglobin 0.7 0.5-1.5 % Arterial Blood Methemoglobin 0.4 0.0-1.5 % Ke Test Modified Blood Gas Total Hemoglobin 8.90 L 13.5-17.5 g/dL Blood Gas Set Respiration Rate 22.0 Blood Gas Modality Vent - ac FiO2 % 30.0 Blood Gas Tidal Volume 500.0 Blood Gas PEEP or CPAP 5.0 White Blood Count 4.4 4.4-10.8 10^3/uL Red Blood Count 2.74 L 4.5-5.90 10^6/uL Hemoglobin 7.6 L 13.5-17.5 g/dL Hematocrit 23.1 L 41.0-53.0 % Mean Corpuscular Volume 84.1 80.0-100.0 fL Mean Corpuscular Hemoglobin 27.6 L 28.0-32.0 pg Mean Corpuscular Hemoglobin Concent 32.8 32.0-36.0 g/dL Red Cell Distribution Width 24.0 H 11.8-14.3 % Platelet Count 164 140-450 10^3/uL Mean Platelet Volume 7.6 6.9-10.8 fL Neutrophils (%) (Auto) 66.1 37.0-80.0 % Lymphocytes (%) (Auto) 25.0 10.0-50.0 % Monocytes (%) (Auto) 6.3 0.0-12.0 % Eosinophils (%) (Auto) 1.6 0.0-7.0 % Basophils (%) (Auto) 1.0 0.0-2.0 % Neutrophils # (Auto) 2.9 1.6-8.6 10 ^3/uL Lymphocytes # (Auto) 1.1 0.4-5.4 10 ^3/uL Monocytes # (Auto) 0.3 0-1.3 10 ^3/uL Eosinophils # (Auto) 0.1 0-0.8 10 ^3/uL Basophils # (Auto) 0 0-0.2 10 ^3/uL Nucleated Red Blood Cells 0.0 % Sodium Level 140 136-145 mmol/L Potassium Level 3.9 3.5-5.1 mmol/L Chloride Level 104 98-107 mmol/L Carbon Dioxide Level 27 20-31 mmol/L Anion Gap 9 5-15 Blood Urea Nitrogen 42 H 9-23 mg/dL Creatinine 1.26 0.700-1.30 mg/dL Glomerular Filtration Rate Calc 69 >90 mL/min BUN/Creatinine Ratio 33.3 H 10.0-20.0 Serum Glucose 111 H 74-106 mg/dL Calcium Level 7.8 L 8.7-10.4 mg/dL Phosphorus Level 3.4 2.4-5.1 mg/dL Magnesium Level 2.0 1.6-2.6 mg/dL Total Bilirubin 0.3 0.2-1.0 mg/dL Aspartate Amino Transferase (AST) 44 H 13-40 U/L Alanine Aminotransferase (ALT) 108 H 7-40 U/L Alkaline Phosphatase 546 H 46-116 U/L Total Protein 5.2 L 5.7-8.2 g/dL Albumin 2.2 L 3.2-4.8 g/dL Hepatitis A Antibody Total Negative Negative Hepatitis B Surface Antigen Negative Negative Hepatitis B Surface Antibody Negative Negative Hepatitis B Core Total Antibody Negative Negative Hepatitis C Antibody Negative Negative Test 03/17/25 14:40 03/17/25 07:41 03/17/25 06:30 03/16/25 17:45 Range/Units HIV (1&2) Antibody Negative Negative Blood Gas Critical Value Read Back Yes Blood Gas Notified Whom Rishi gunn Blood Gas Notified Time [id number] Blood Gas Notified By Dong atkinson Urine Creatinine 56.14 30.0-125.0 mg/dL Urine Sodium 13 L 40-220 mmol/L Blood Gas Spontaneous Rate 24 Specimen Drawn By jo ann rt Test 03/16/25 17:16 03/16/25 14:00 03/16/25 13:59 03/13/25 11:53 Range/Units Direct Bilirubin 0.5 H <0.3 mg/dL Triglycerides Level 137 < 150 mg/dL Vitamin D 25-Hydroxy 35.5 30.0-100 ng/mL Blood Gas Liter Flow 4.00 B-Type Natriuretic Peptide > 5000.00 0-100 pg/mL Parathyroid Hormone (Intact) 190.7 H 18.4-80.1 pg/mL Stool Occult Blood Positive Negative Stool Occult Blood Sample #3 Negative Test 03/13/25 04:58 03/13/25 03:46 03/12/25 10:20 03/12/25 05:00 Range/Units Thyroid Stimulating Hormone (TSH) 3.84 0.55-4.78 uIU/mL Ammonia 18 11-32 umol/L Urine Protein/Creatinine Ratio 2.26 Urine Total Protein 23.6 H 1-14 mg/dL Urine Color Light-yellow Yellow Urine Clarity Clear Clear Urine pH 5.5 5.0-9.0 Urine Specific [place] 1.013 1.001-1.035 Urine Protein Trace H Negative Urine Ketones Trace Negative Urine Blood Negative Negative /uL Urine Nitrite Negative Negative Urine Bilirubin Negative Negative Urine Urobilinogen Normal Negative mg/dL Urine Leukocyte Esterase Negative Negative /uL Urine RBC <1 0 - 3 /hpf Urine Microscopic WBC < 1 0-3 /HPF Urine Squamous Epithelial Cells None seen <5 /hpf Urine Bacteria None seen None Seen /hpf Urine Glucose Normal Normal mg/dL Urine Opiates Screen Neg NEGATIVE Urine Fentanyl Screen Neg NEGATIVE Urine Barbiturates Screen Neg NEGATIVE Urine Phencyclidine Screen Neg NEGATIVE Urine Amphetamines Screen Neg NEGATIVE Urine Benzodiazepines Screen Neg NEGATIVE Urine Cocaine Screen Neg NEGATIVE Urine Cannabinoids Screen Neg NEGATIVE Test 03/12/25 04:28 03/11/25 23:05 03/11/25 17:15 Range/Units Prothrombin Time 10.2 9.3-11.8 sec Prothrombin Time INR 0.96 0.9-1.15 Activated Partial Thromboplast Time 24.8 24.5-34.5 SEC Iron Level 39 L 65-175 ug/dL Total Iron Binding Capacity 321 250-425 ug/dL Percent Iron Saturation 12.1 L 20-55 % Ferritin 21.1 L 22-322 ng/mL Vitamin B12 Level 852 211-911 pg/mL Folic Acid 12.28 >5.38 ng/mL Plasma/Serum Blood Alcohol < 3.0 <10 mg/dL Reticulocyte Count (auto) 3.05 H 0.5-1.5 % Lactate Dehydrogenase 245 120-246 U/L Lactic Acid Level 1.9 0.4-2.0 mmol/L Microbiology Date/Time Source Procedure Growth Status 03/16/25 16:36 Nose MRSA Screen - Final Complete 03/16/25 16:06 Sputum Gram Stain - Final Complete 03/16/25 16:06 Respiratory Culture - Final Stenotrophomonas maltophilia Escherichia coli Presumptive Milady albicans Complete 03/13/25 11:53 Stool Stool Culture - Final Complete 03/13/25 11:53 Stool Shiga Toxin I & II - Final Complete 03/12/25 11:55 Urine - [place] Urine Culture - Final Complete 03/11/25 15:36 Blood Blood Culture - Final NO GROWTH AFTER 5 DAYS OF INCUBATION. Complete Examination: GENERAL:Abnormal (Intubated on light sedation), HEENT:Normal (NG tube in place an ET tube in place), ABDOMEN:Normal (Nondistended, soft, depressible, nontender) Problem List/Assessment/Plan Problems: (1) Gallstone Assessment and Plan Mr. Perez is a 49-year-old male who has been admitted to the hospital since 03/11 due to GI bleed. EGD from 03/13 show duodenal ulcer not actively bleeding and erosive esophagitis. He subsequently developed hypoxic respiratory failure and his is currently intubated. I was consulted for the possibility of cholecystitis. I reviewed the ultrasound of the gallbladder and shows sludge within the gallbladder wall lumen there is no pericholecystic fluid there is no gallbladder wall thickening. LFTs are mildly elevated and total bilirubin level is normal. On physical exam patient is nontender to the abdomen and did not complain of any abdominal pain when asked about it. Also patient has no leukocytosis. Given the some of all this findings cholecystitis is highly unlikely, and even if the patient were to develop acute cholecystitis he will benefit from a trish tube not from a gallbladder surgery at this point. No surgical intervention indicated at this point, please call with any questions or concerns. Plan discussed with Plan discussed with: Patient Visit Coding Surgery Date of Service if different f: Mar 25, 2025 Billing Provider: HENRI BATISTA MD Surgery Visit Codes: 27026 - INP CONSULT <110 MIN HENRI BATISTA MD Mar 25, 2025 16:15
--- NOTE | 2025-03-25 20:03 | DVHPN2 ---
Subjective DOS: 03/25/2025 Patient seen and examined at bedside. Intubated on mechanical ventilator. Overnight events reviewed. Changes from previous H/P or p: No Changes Eyes: No Pain, No Vision change, No Conjunctivae inflammation, No Eyelid inflammation, No Other, No Redness ENT: No Ear pain, No Ear discharge, No Nose pain, No Nose discharge, No Nose congestion, No Mouth pain, No Mouth swelling, No Throat pain, No Throat swelling, No Other Cardiovascular: No Chest Pain, No Palpitations, No Orthopnea, No Paroxysmal Noc. Dyspnea, No Edema, No Lt Headedness, No Other Respiratory: No Cough, No Dry, No Shortness of breath, No SOB with excertion, No Wheezing, No Hemoptysis, No Pleuritic Pain, No Sputum, No Other Gastrointestinal: Melena Musculoskeletal: No other, No neck pain, No shoulder pain, No arm pain, No back pain, No hand pain, No leg pain, No foot pain Skin: No Rash, No Lesions, No Jaundice, No Bruising, No Other Objective Vitals Vital Signs Date Time Temp Pulse Resp B/P (MAP) Pulse Ox O2 Delivery O2 Flow Rate FiO2 03/25/25 18:15 101 24 169/100 (123) 99 03/25/25 18:00 Mechanical Ventilator+ 30 30 03/25/25 08:00 98.7 98.7 Intake/Output Intake and Output 03/25/25 07:00 Intake Total 2347.3 ml Output Total 1650 ml Balance 697.3 ml Intake Oral 60 ml IV Total 1903.3 ml Tube Feeding 384 ml Output Urine Total 1550 ml Urine/Stool Mix 100 ml # Bowel Movements 5 Exam Gen.: Patient lying in bed in medical ICU. Intubated on mechanical ventilator. Head: Normocephalic, atraumatic. Eyes: PERRLA. Ears: Normal external anatomy. Throat: Endotracheal tube and orogastric tube in place. Neck: Supple, trachea midline. Chest: Transmitted breath sounds bilaterally. Decreased air entry bilaterally. No wheezing. Bibasilar crackles. Cardiovascular: Positive S1, positive S2. Regular rate and rhythm. Abdomen: Positive bowel sounds in all 4 quadrants. Soft, nontender, nondistended. : Barrios in place. Normal external genitalia. Rectal: Deferred. Skin: Warm, dry. Intact. Extremities: 2+ radial pulses bilaterally. No lower extremity edema. Neuro: Off sedation. Medications Current Medications Medications Dose Ordered Sig/Wally Route Start Time Stop Time Status Last Admin Dose Admin Ondansetron HCl 4 mg Q4HP PRN IV 03/12/25 00:00 Hydralazine HCl 10 mg Q6HP PRN IV 03/12/25 17:30 03/23/25 05:19 10 MG Lorazepam 1 mg Q8HP PRN IV 03/12/25 21:45 03/12/25 21:58 1 MG Midazolam HCl 100 ml @ 1 mls/hr Q24H IV 03/16/25 16:30 03/23/25 14:52 2 MLS/HR Diagnostic Test (Pha) 1 strip Q6HR 03/16/25 18:00 03/25/25 17:59 1 STRIP Insulin Human Regular FOLLOW SLIDING SCALE Q6HR SC 03/16/25 18:00 03/25/25 18:13 2 UNITS Dextrose 50 ml UD IV 03/16/25 17:15 Amino Acids 0 ml @ 0 mls/hr PER PHARMACY IV 03/16/25 17:15 Pantoprazole Sodium 50 ml @ 10 mls/hr Q5H IV 03/16/25 17:15 03/25/25 16:58 10 MLS/HR Folic Acid 1 mg/ Dextrose 50.2 ml @ 200.8 mls/ hr DAILY INJ 03/17/25 10:00 03/25/25 10:21 200.8 MLS/HR Thiamine HCl 100 mg DAILY IV 03/18/25 10:00 03/25/25 10:20 100 MG Atorvastatin Calcium 40 mg HS PO 03/17/25 22:00 Hold Enteral Nutritional Formula 1,000 ml 20 ML/HR NG 03/21/25 16:00 03/21/25 22:08 1,000 ML Sucralfate 1 gm QID@0600,1130,1700,2200 GT 03/23/25 17:00 03/25/25 16:57 1 GM Fat Emulsion Intravenous 100 ml/Potassium Acetate 60 meq/ Potassium Phosphate 22 meq/ Calcium Gluconate 4.65 meq/ Magnesium Sulfate 6 meq/ Multivitamins 10 ml/Chromium/ Copper/Manganese/ Zinc 1 ml/Amino Acids/Dextrose/ Purified Water 1,707.5 ml @ 71 mls/hr Q24H3M IV 03/24/25 22:00 03/25/25 21:59 03/24/25 21:44 71 MLS/HR Fat Emulsion Intravenous 100 ml/Potassium Acetate 50 meq/ Potassium Phosphate 22 meq/ Calcium Gluconate 4.65 meq/ Magnesium Sulfate 7 meq/ Multivitamins 10 ml/Chromium/ Copper/Manganese/ Zinc 1 ml/Amino Acids/Dextrose/ Purified Water 1,702.75 ml @ 71 mls/hr [id number] IV 03/25/25 22:00 03/26/25 21:59 Fentanyl Citrate 250 ml @ 2.5 mls/hr Q24H IV 03/25/25 19:45 Laboratory Results Laboratory Tests 03/25/25 03:50 Chemistry Test 03/25/25 03:50 Albumin 2.2 g/dL (3.2-4.8) L Calcium Level 7.8 mg/dL (8.7-10.4) L Magnesium Level 2.0 mg/dL (1.6-2.6) Phosphorus Level 3.4 mg/dL (2.4-5.1) Total Protein 5.2 g/dL (5.7-8.2) L LFT Test 03/25/25 03:50 Alanine Aminotransferase (ALT) 108 U/L (7-40) H Alkaline Phosphatase 546 U/L (46-116) H Aspartate Amino Transferase (AST) 44 U/L (13-40) H Total Bilirubin 0.3 mg/dL (0.2-1.0) Urinalysis Test 03/12/25 05:00 03/12/25 10:20 03/17/25 06:30 Urine Color Light-yellow (Yellow) Urine Clarity Clear (Clear) Urine pH 5.5 (5.0-9.0) Urine Specific [place] 1.013 (1.001-1.035) Urine Protein Trace (Negative) H Urine Ketones Trace (Negative) Urine Blood Negative /uL (Negative) Urine Nitrite Negative (Negative) Urine Bilirubin Negative (Negative) Urine Urobilinogen Normal mg/dL (Negative) Urine Leukocyte Esterase Negative /uL (Negative) Urine RBC <1 /hpf (0 - 3) Urine Microscopic WBC < 1 /HPF (0-3) Urine Squamous Epithelial Cells None seen /hpf (<5) Urine Bacteria None seen /hpf (None Seen) Urine Glucose Normal mg/dL (Normal) Urine Protein/Creatinine Ratio 2.26 Urine Total Protein 23.6 mg/dL (1-14) H Urine Creatinine 56.14 mg/dL (30.0-125.0) Urine Sodium 13 mmol/L (40-220) L Blood Gas Results Test 03/25/25 06:07 Arterial Blood pH 7.381 (7.350-7.450) FiO2 % 30.0 Microbiology Microbiology Date/Time Source Procedure Growth Status 03/16/25 16:36 Nose MRSA Screen - Final Complete 03/16/25 16:06 Sputum Gram Stain - Final Complete 03/16/25 16:06 Respiratory Culture - Final Stenotrophomonas maltophilia Escherichia coli Presumptive Milady albicans Complete 03/13/25 11:53 Stool Stool Culture - Final Complete 03/13/25 11:53 Stool Shiga Toxin I & II - Final Complete 03/12/25 11:55 Urine - [place] Urine Culture - Final Complete 03/11/25 15:36 Blood Blood Culture - Final NO GROWTH AFTER 5 DAYS OF INCUBATION. Complete Assessment/Plan Assessment/Plan Impression: Acute hypoxic respiratory failure On mechanical ventilator Acute metabolic encephalopathy Multiple strokes Chronic diastolic heart failure with preserved EF GI hemorrhage Anemia GIOVANI on CKD Events: Remains on vent support On AC mode; RR 22, VT 500, PEEP 5, FiO2 30% Taper FiO2 as tolerated Sedated on Fentanyl On Precedex drip. Continue antibiotics Continue IV fluids Continue Protonix drip Sucralfate Continue to monitor hemoglobin closely - 7.6 g/dL Transfuse if less than 7.0 g/dL. Dark gastric residuals noted GI recommendations appreciated. TPN/tube feeds for nutritional support Patient tolerated CPAP - plan to repeat in AM. Labs and imaging reviewed. Rest of plan as noted below. Plan: s/p intubation on mechanical ventilator. On AC mode; RR 20, VT 500, PEEP 5, FiO2 30% Titrate FIO2 to keep O2 saturation above 90%. VAP bundle. Daily ABG and CXR while intubated Continue antibiotics. Follow up cultures. Pressors as necessary for hemodynamic support Titrate to keep mean arterial pressure greater than 65 mmHg. Monitor hemoglobin Transfuse if less than 7.0 g/dL. NGT to LIS Protonix drip F/u GI and Surgery recs Accu-Cheks, ISS PRN Monitor renal function Monitor electrolytes. Supplement as necessary. Monitor ins and outs. Maintain euvolemia. TPN for nutritional support Counseled against vaping and marijuana use. GI prophylaxis. DVT prophylaxis. Prognosis: Poor given patient's multiple co-morbidities. Condition: Critical Rest of plan per hospitalist and other consultants. A total of 35 minutes of critical care time was spent reviewing the patient record, examining the patient, making a diagnostic and therapeutic plan, discussing this plan with the medical personnel, following up on diagnostic studies and following the patient for clinical stability excluding any and all procedures. At least 50% of this time was spent in direct, [id number] contact. Thank you, Dr. Khoury, for allowing me to participate in this patient's care. Further recommendations will depend on the patient's clinical course. Please do not hesitate to contact me if you have any questions or concerns. This medical document was created using an electronic medical record system with [employer] dictation system. Although these documentations are being carefully reviewed, there may still be some phonetic and typographical changes. The errors are purely typographical, due to imperfection on the software program, and do not reflect any compromise in the patient's medical care. Plan discussed with: Other (JASPER Rea) Visit Coding Pulmonary Billing Provider: ARIE LOPEZ MD Date of Service if different f: Mar 25, 2025 Common Visit Codes: [id number] INP/OBS CARE(HIGH), [id number] CARE 30-74 MIN ARIE LOPEZ MD Mar 25, 2025 20:03
[2025-03-25] MEDS: TPN PER PHARMACY IV NR (21:56)
[2025-03-26] VITALS (103 sets, daily range): BP systolic 120–223; BP diastolic 68–131; PULSE 65–140; RESP 18–42; TEMP 98.6–99.3; O2SAT 94–100
[2025-03-26] MEDS: fentaNYL Drip 2500mCg/250mlNS 250 ML IV SCH (01:42)
[2025-03-26 03:50] LABS: Hematocrit 21.8 % (41.0-53.0); Mean Corpuscular Hemoglobin 27.8 pg (28.0-32.0); Nucleated Red Blood Cells % 0.0 %
[2025-03-26 03:53] LABS: Hemoglobin 7.3 g/dL (13.5-17.5); Mean Corpuscular Volume 82.7 fL (80.0-100.0)
[2025-03-26 04:05] LABS: Anion Gap 9 (5-15); BUN/Creatinine Ratio 31.6 (10.0-20.0); Carbon Dioxide 27 mmol/L (20-31); Chloride 104 mmol/L (98-107); Magnesium 2.0 mg/dL (1.6-2.6); Potassium 3.6 mmol/L (3.5-5.1); Sodium 140 mmol/L (136-145); Total Protein 5.7 g/dL (5.7-8.2)
[2025-03-26 04:21] LABS: Alanine Aminotransferase 82 U/L (7-40); Albumin 2.5 g/dL (3.2-4.8); Alkaline Phosphatase 423 U/L (46-116); Bilirubin, Total 0.3 mg/dL (0.2-1.0); Blood Urea Nitrogen 37 mg/dL (9-23); Calcium 8.1 mg/dL (8.7-10.4); Glucose 132 mg/dL (74-106)
--- NOTE | 2025-03-26 05:27 | DVH ---
CHEST RADIOGRAPH Indication: mechanical ventilation Technique: Single frontal view of the chest was obtained Comparison: XY CHEST PORTABLE on DOS: 03/25/25 FINDINGS: Lines and Tubes: There is a right PICC with its tip terminating in the superior vena cava. The enteric tube terminates in the stomach. The endotracheal tube terminates 4.5 cm above the dunia. Lungs: Bilateral interstitial prominence is similar to the prior study. Pleura: There is blunting of the left costophrenic sulcus consistent with small effusion. No pneumothorax. Cardiomediastinal contours: Unremarkable Bones: No acute osseous abnormality. IMPRESSION: 1. Appropriate position of the support lines and tubes. 2. Bilateral increased interstitial prominence similar to prior study. 3. Small left pleural effusion similar to prior study.
[2025-03-26 07:48] LABS: Base Excess 2.9 mmol/L (-2.0-3.0)
--- NOTE | 2025-03-26 08:41 | DVHPN2 ---
Progress Note Date Seen: Mar 26, 2025 Resident Creating Document: RONALDO RAWLS NICOLE Has the PT tested + for MRSA If YES, has PT been informed?: No Medical Necessity Reason Pt with a Central, PICC or Fol: Yes The following are medically ne: Central Line, Barrios Catheter Subjective Review of Systems Patient seen and examined at the bedside. Patient is remained intubated and on mechanical ventilation. Review of Systems: RESPIRATORY:Abnormal Other Systems: Patient seen and examined by myself today on rounds with the medicine resident, I agree with the assessment and plan Patient remained intubated on a ventilator Objective vital signs Vital Sign Date Time Temp Pulse Resp B/P (MAP) Pulse Ox O2 Delivery O2 Flow Rate FiO2 03/26/25 08:20 85 22 164/92 (116) 100 30 03/26/25 06:00 Mechanical Ventilator+ 03/26/25 06:00 99.3 99.3 Total Intake and Output 03/25/25 03/25/25 03/26/25 15:00 23:00 07:00 Intake Total 579.8 ml 630.110 ml 717.295 ml Output Total 1450 ml 750 ml Balance 579.8 ml -819.890 ml -32.705 ml medications Current Medications Medications Dose Ordered Sig/Wally Route Start Time Stop Time Status Last Admin Dose Admin Ondansetron HCl 4 mg Q4HP PRN IV 03/12/25 00:00 Hydralazine HCl 10 mg Q6HP PRN IV 03/12/25 17:30 03/23/25 05:19 10 MG Lorazepam 1 mg Q8HP PRN IV 03/12/25 21:45 03/12/25 21:58 1 MG Midazolam HCl 100 ml @ 1 mls/hr Q24H IV 03/16/25 16:30 03/23/25 14:52 2 MLS/HR Diagnostic Test (Pha) 1 strip Q6HR 03/16/25 18:00 03/26/25 05:46 1 STRIP Insulin Human Regular FOLLOW SLIDING SCALE Q6HR SC 03/16/25 18:00 03/26/25 05:56 2 UNITS Dextrose 50 ml UD IV 03/16/25 17:15 Amino Acids 0 ml @ 0 mls/hr PER PHARMACY IV 03/16/25 17:15 Pantoprazole Sodium 50 ml @ 10 mls/hr Q5H IV 03/16/25 17:15 03/26/25 03:15 10 MLS/HR Folic Acid 1 mg/ Dextrose 50.2 ml @ 200.8 mls/ hr DAILY INJ 03/17/25 10:00 03/25/25 10:21 200.8 MLS/HR Thiamine HCl 100 mg DAILY IV 03/18/25 10:00 03/25/25 10:20 100 MG Atorvastatin Calcium 40 mg HS PO 03/17/25 22:00 Hold Enteral Nutritional Formula 1,000 ml 20 ML/HR NG 03/21/25 16:00 03/21/25 22:08 1,000 ML Sucralfate 1 gm QID@0600,1130,1700,2200 GT 03/23/25 17:00 03/26/25 06:01 1 GM Fat Emulsion Intravenous 100 ml/Potassium Acetate 50 meq/ Potassium Phosphate 22 meq/ Calcium Gluconate 4.65 meq/ Magnesium Sulfate 7 meq/ Multivitamins 10 ml/Chromium/ Copper/Manganese/ Zinc 1 ml/Amino Acids/Dextrose/ Purified Water 1,702.75 ml @ 71 mls/hr [id number] IV 03/25/25 22:00 03/26/25 21:59 03/25/25 21:56 71 MLS/HR Fentanyl Citrate 250 ml @ 2.5 mls/hr Q24H IV 03/25/25 19:45 03/26/25 01:42 2.5 MLS/HR Examination General: RASS -1, afebrile, mucosae are dry, cachectic Cardiovascular: Normal S1 and S2. No murmurs, gallops or rubs Respiratory: Mechanically assisted ventilation, equal bilateral airway entree. Clear lung sounds on auscultation Mechanical ventilation setting: GI: Soft, nontender, no organomegaly, normal bowel sounds : Barrios catheter n place, clear yellow urine in collection bag MSK/skin: Mobilization of limbs cannot be evaluated. Skin is dry and warm. IV accesses: Neurological: Orientation cannot be assessed. No apparent motor no sensitive deficits. Pupils are isocoric and reactive Examination: LUNGS:Normal, CVS:Normal, MSK:Normal laboratory and microbiology Laboratory Tests 03/26/25 03:00 Test 03/26/25 03:00 Range/Units Serum Glucose 132 H 74-106 mg/dL Microbiology Date/Time Source Procedure Growth Status 03/16/25 16:36 Nose MRSA Screen - Final Complete 03/16/25 16:06 Sputum Gram Stain - Final Complete 03/16/25 16:06 Respiratory Culture - Final Stenotrophomonas maltophilia Escherichia coli Presumptive Milady albicans Complete 03/13/25 11:53 Stool Stool Culture - Final Complete 03/13/25 11:53 Stool Shiga Toxin I & II - Final Complete 03/12/25 11:55 Urine - Barrios Port Urine Culture - Final Complete 03/11/25 15:36 Blood Blood Culture - Final NO GROWTH AFTER 5 DAYS OF INCUBATION. Complete Labs and/or images reviewed: Labs reviewed by me, Image(s) reviewed by me Problem List/Assessment/Plan Problem List/Assessment/Plan 49 years old male with past medical history of CVA, dyslipidemia, hypertension, left knee surgery, Chronic kidney disease, history of severe Acute kidney injury needed inpatient dialysis previous admission here and then renal recovery presented with chief complaints of diarrhea for the past 5 to 6 days, he also has history of perforated duodenal ulcer status post exploratory laparotomy previous admission, cholecystitis, status post tracheostomy Patient presented to emergency room with hemoglobin of 4.2,s/p 3 U prbc,, s/p egd noted findings. Assessment: GIOVANI, on CKD 2, VMN Hypovolemic hypernatremia/dehydration Duodenal ulcer leading to GI bleeding and severe anemia, status post 3 PRBC transfusion History of CVA Recurrent CVA Hypertension C diff diarrhea Severe protein malnutrition/cachexia Hypokalemia Hypophosphatemia Plan/recommendation: (Dr. Anderson) * Kidney function is improving * Na level normalized appropriately * K-Phos IV piggyback * Replete potassium * Good urine output * Strict I&Os * We will follow up with the patient Thank you for giving us the opportunity to take care of the outpatient. Please call back if you have any questions/concerns. Plan discussed with: Patient, Other (RN) Dietary Evaluation Review Recommendations by RD: Increase Calorie Intake, PPN/TPN Comments: Pt meets criteria 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 based on severe wt loss 35lb/24% in 5 month, intake <50% estimated requirement x 5 days, severe muscle wasting and fat depletion Nutrition Recommendation: 1) PPN/TPN if NPO continues 2) Advance to soft diet as medically feasible 3) Ensure Enlive 240ml TID if pt resumes PO diet 4) Monitor NPO status, lab values, weight trend, and I/O Expected Outcomes/Goals: Intake to meet >75% estimated needs GI symptoms to improve Fu 2-3 days Food and Nutrition Intake (Sev: <50% est energy req 5days Interpretation of weight loss: >10% in 6 months Body Fat Depletion (Severe): Mod to Severe Depletion Muscle Mass (Severe): Mod to Severe Depletion Protein Calorie Malnutrition: Severe Is there a minimum of two crit: Yes CC Plasma Assessment Blood Product Administration S: [id number] RONALDO RAWLS Mar 26, 2025 08:41 MILADY ANDERSON MD Mar 26, 2025 13:21
--- NOTE | 2025-03-26 10:00 | DVHPN2 ---
Progress Note - Dictate Date Seen: Mar 26, 2025 Has the PT tested + for MRSA If YES, has PT been informed?: No Medical Necessity Reason Pt with a Central, PICC or Fol: Yes The following are medically ne: Central Line, Barrios Catheter Subjective Mr. Perez is a 49 years old right-handed gentleman with a history of hypertension, dyslipidemia, multiple strokes, DVT, he was brought to the [facility] on 03/11/2025 with a chief complaint of diarrhea, history is obtained from his , the chart review I saw him on 08/23/2023 for TIA, 10/27/2024 for encephalopathy I have seen and examined the patient, I have talked to his nurse, he is intubated, follows verbal commands, he tracks and follows, he moves the left arm than leg At this time, he is off sedation, on CPAP, but he is significantly elevated blood pressure, RR is in the 40s/50s, heart rate is in the 140s and 150s Stool occult blood, 03/13/2025: Positive UDS, 03/12/2025: Negative Plasma alcohol, 03/12/2025: <3 Urinalysis, 03/12/2025: WBC: One, urine leukocyte esterase: Negative ABG, 03/16/25: Hypoxia, respiratory acidosis WBC/Hb/PLT'/MCV, 03/16/25: 10.l 6/7.9/339/82.4 Na, 03/11/2025: 129, 03/12/2025: 130, 129, 03/15/25: 145, 03/16/25: 142 BUNs/CR, 08/22/2023: 15/1.45, 03/11/2025: 55/1.77, 03/13/2025: 43/1.58, 02/2725: 65/2.56 GFR, 08/22/2023: 59 TBI/AST/ALT/AP: 0.8/269/450/398 TG/CHO L/LDL/HDL, 08/2023: 136/166/111/39 Vitamin B12, 03/12/25: 852 Folic acid, 03/12/2025: 12.28 TSH, 08/23/2023: 4.25 Ultrasound, 03/24/2025: Gallbladder entirely distended with sludge with gallbladder wall thickening and pericholecystic edema, concerning for cholecystitis. Recommend surgical consultation HIDA scan. Dilated common bile duct measuring 16 mm which can be further evaluated with MRCP. Echogenic liver which can be seen with hepatic steatosis, cirrhosis. Right pleural effusion Extremity venous study, right arm, 11/09/2024: Thrombus is seen in the cephalic vein in the forearm. DONAL, 08/23/2023: 1. No evidence of intracardiac source of embolus in the study conducted today. 2. Normal valves without significant masses or change vegetations were discernible. 3. No evidence of intra-atrial shunting by bubble study and color Doppler. 4. Mild atherosclerotic plaquing was visualized in the arch of the aorta without evidence of dissection in the visualized part EGD, 03/13/2025: 1. 1-2 cm sliding-type hiatal hernia with severe grade C linear erosive esophagitis with esophageal ulcers extending into the distal 15 cm of the esophagus 2. Patient had a persistent duodenal bulb ulcer seen just inside the pyloric opening which was large coalescing with a visible sutures; there was no active bleeding or visible vessel but there was acute on chronic inflammation 3. Patient had deformity of the postbulbar duodenal area and I was able to see the 2nd part of the duodenum but there was area of debris and ongoing chronic ulceration inflammation and the endoscope was not advanced beyond this area 3. Patient had mild gastritis and some old coffee-ground within the stomach Chest x-ray, 03/12/2025: Mild chronic appearing left basilar pulmonary airspace disease and possible small pleural effusion Chest x-ray, 03/13/2025: 1. Enteric tube terminates in the stomach. 2. Worsening bilateral interstitial and alveolar opacities. Chest x-ray, : Endotracheal tube and right IJ approach central venous catheters are in satisfactory position. Trace sjlh-emgvnld-byuh-right pleural effusions with right retro lower lung zone linear atelectasis/ fluid within the fissure. CT head, 10/24/2024: 1. No intracranial hemorrhage or mass effect. 2. Bytx-sz-zfdlmbfh chronic microvascular ischemic changes. 3. Old bilateral basal ganglia lacunar infarcts. 4. Small bilateral mastoid effusions. CT head, 03/17/2025: 1. New medial right parieto-occipital focal region of diminished parenchymal attenuation within the medial right parietal occipital lobes. This is concerning for an acute to subacute infarct. Recommend further evaluation with MRI. 2. No evidence of acute intracranial hemorrhage, mass effect or hydrocephalus. 3. Chronic sequelae of microangiopathy and atrophic cortical volume loss.4. Multifocal chronic lacunar infarcts as outlined above. CT abdomen/pelvis, 10/04/2024: 1. Extensive intra-abdominal free air concerning for perforated viscus. Surgical consultation is recommended. 2. Enteritis is seen in multiple loops of small bowel in the left hemiabdomen. 3. Moderate abdominopelvic ascites. 4. Small right pleural effusion. CTA neck, head, 08/22/2023:1. CTA head demonstrates no evidence of large vessel occlusion, aneurysm, or significant stenosis. 2. CTA neck demonstrates no evidence of carotid or vertebral dissection or significant stenosis. 3. No noncontrast CT head was performed. 4. Additional findings as detailed above MRI head, 08/23/2023: No acute infarct, intracranial hemorrhage, mass effect, or hydrocephalus. Moderate periventricular and deep subcortical white matter T2 hyperintensities which are nonspecific, but most likely related to sequela of chronic microvascular ischemic changes (I have reviewed the MRI films with our in-house radiologist, Dr. Black, the patient had bilateral multiple subacute/chronic infarcts) MRI head, 11/01/2024: No acute cerebrovascular ischemia. Uuzs-on-mfmphtxn chronic microvascular ischemic changes. Bilateral mastoid effusions. Old bilateral basal ganglia / lopes radiata infarcts. MR head, 03/16/2025: Infarcts involving multiple vascular territories as described. vital signs Vital Sign Date Time Temp Pulse Resp B/P (MAP) Pulse Ox O2 Delivery O2 Flow Rate FiO2 03/26/25 08:55 136 31 219/126 (157) 94 30 03/26/25 06:00 Mechanical Ventilator+ 03/26/25 06:00 99.3 99.3 Total Intake and Output 03/25/25 03/25/25 03/26/25 15:00 23:00 07:00 Intake Total 579.8 ml 630.110 ml 717.295 ml Output Total 1450 ml 750 ml Balance 579.8 ml -819.890 ml -32.705 ml medications Current Medications Medications Dose Ordered Sig/Wally Route Start Time Stop Time Status Last Admin Dose Admin Ondansetron HCl 4 mg Q4HP PRN IV 03/12/25 00:00 Hydralazine HCl 10 mg Q6HP PRN IV 03/12/25 17:30 03/23/25 05:19 10 MG Lorazepam 1 mg Q8HP PRN IV 03/12/25 21:45 03/12/25 21:58 1 MG Midazolam HCl 100 ml @ 1 mls/hr Q24H IV 03/16/25 16:30 03/23/25 14:52 2 MLS/HR Diagnostic Test (Pha) 1 strip Q6HR 03/16/25 18:00 03/26/25 05:46 1 STRIP Insulin Human Regular FOLLOW SLIDING SCALE Q6HR SC 03/16/25 18:00 03/26/25 05:56 2 UNITS Dextrose 50 ml UD IV 03/16/25 17:15 Pantoprazole Sodium 50 ml @ 10 mls/hr Q5H IV 03/16/25 17:15 03/26/25 09:06 10 MLS/HR Folic Acid 1 mg/ Dextrose 50.2 ml @ 200.8 mls/ hr DAILY INJ 03/17/25 10:00 03/25/25 10:21 200.8 MLS/HR Thiamine HCl 100 mg DAILY IV 03/18/25 10:00 03/25/25 10:20 100 MG Atorvastatin Calcium 40 mg HS PO 03/17/25 22:00 Hold Enteral Nutritional Formula 1,000 ml 20 ML/HR NG 03/21/25 16:00 03/21/25 22:08 1,000 ML Sucralfate 1 gm QID@0600,1130,1700,2200 GT 03/23/25 17:00 03/26/25 06:01 1 GM Fentanyl Citrate 250 ml @ 2.5 mls/hr Q24H IV 03/25/25 19:45 03/26/25 01:42 2.5 MLS/HR Labetalol HCl 5 mg Q2HPRN PRN IV 03/26/25 10:00 UNV objective The patient is well-nourished and well-developed with no distress. The patient is intubated MENTAL STATUS: Subjective CRANIAL NERVES: Pupils are equal, round and reactive. There is conjugated eye movement. Motor sensory examination on bilateral trigeminal distribution is fine, No signs of facial weakness. There are gagging or coughing reflexes oral and airway care SENSATION: Okay to touch MOTOR: Normal tone in the upper and lower extremity. Normal muscle bulk. No fasciculations. Moves the left arm in the leg REFLEXES: Deep tendon reflexes are symmetrical, 4/4 in the knees and ankles. No pathological reflexes. CEREBELLAR/COORDINATION: Deferred GAIT/STATION: deferred. laboratory and microbiology Laboratory Tests 03/26/25 03:00 Test 03/26/25 03:00 Range/Units Serum Glucose 132 H 74-106 mg/dL Problem List Altered mental status Metabolic encephalopathy secondary to sepsis, septic shock, hypernatremia Hypoxic encephalopathy Peptic ulcer, GI bleeding, anemia Respiratory failure New multiple strokes in different arterial territories (MRI 03/18/25) Multiple chronic strokes Maybe secondary to history methamphetamine, cocaine, alcohol use History of alcohol abuse History of cocaine, methamphetamine abuse Assessment/Plan Monitoring Supportive treatment ICU care Stabilize vitals Respiratory support/vent management Follow-up labs IV antibiotics Aspirin 81 mg daily later Lipitor later TPN Thiamine supplementation Folic acid supplementation GI service on case Nephrology service on case More recommended per clinical course He could not tolerate CPAP, and we will resume sedation and respiratory support This medical document was created using an electronic medical record system with Hyper9 dictation system. Although this document has been carefully reviewed, there may still be some phonetic and typographical errors. These areas are purely typographical due to imperfect Prognosis Cognitive Dietary Evaluation Review Recommendations by RD: Increase Calorie Intake, PPN/TPN Comments: Pt meets criteria 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 based on severe wt loss 35lb/24% in 5 month, intake <50% estimated requirement x 5 days, severe muscle wasting and fat depletion Nutrition Recommendation: 1) PPN/TPN if NPO continues 2) Advance to soft diet as medically feasible 3) Ensure Enlive 240ml TID if pt resumes PO diet 4) Monitor NPO status, lab values, weight trend, and I/O Expected Outcomes/Goals: Intake to meet >75% estimated needs GI symptoms to improve Fu 2-3 days Food and Nutrition Intake (Sev: <50% est energy req 5days Interpretation of weight loss: >10% in 6 months Body Fat Depletion (Severe): Mod to Severe Depletion Muscle Mass (Severe): Mod to Severe Depletion Protein Calorie Malnutrition: Severe Is there a minimum of two crit: Yes Plan discussed with: Other Critical Care Time(min): 30 CC Plasma Assessment Blood Product Administration S: [id number] LEANDRO BLACK MD Mar 26, 2025 10:00
--- NOTE | 2025-03-26 11:50 | DVHPN2 ---
Progress Note Date Seen: Mar 26, 2025 Resident Creating Document: RICHARD TOSCANO RESIDENT Has the PT tested + for MRSA If YES, has PT been informed?: No Medical Necessity Reason Pt with a Central, PICC or Fol: Yes The following are medically ne: Central Line, Barrios Catheter Subjective Review of Systems Patient seen and examined with the bedside Failed CPAP trial today H&H stable between 7 and 8 No signs of active bleeding No bowel movements reported since yesterday Gastric residuals about 50 mL in the morning Objective vital signs Vital Sign Date Time Temp Pulse Resp B/P (MAP) Pulse Ox O2 Delivery O2 Flow Rate FiO2 03/26/25 11:30 72 22 127/78 (94) 98 03/26/25 10:15 30 03/26/25 10:00 Mechanical Ventilator+ 03/26/25 06:00 99.3 99.3 Total Intake and Output 03/25/25 03/25/25 03/26/25 15:00 23:00 07:00 Intake Total 579.8 ml 630.110 ml 717.295 ml Output Total 1450 ml 750 ml Balance 579.8 ml -819.890 ml -32.705 ml medications Current Medications Medications Dose Ordered Sig/Wally Route Start Time Stop Time Status Last Admin Dose Admin Ondansetron HCl 4 mg Q4HP PRN IV 03/12/25 00:00 Hydralazine HCl 10 mg Q6HP PRN IV 03/12/25 17:30 03/23/25 05:19 10 MG Lorazepam 1 mg Q8HP PRN IV 03/12/25 21:45 03/12/25 21:58 1 MG Midazolam HCl 100 ml @ 1 mls/hr Q24H IV 03/16/25 16:30 03/23/25 14:52 2 MLS/HR Diagnostic Test (Pha) 1 strip Q6HR 03/16/25 18:00 03/26/25 05:46 1 STRIP Insulin Human Regular FOLLOW SLIDING SCALE Q6HR SC 03/16/25 18:00 03/26/25 05:56 2 UNITS Dextrose 50 ml UD IV 03/16/25 17:15 Folic Acid 1 mg/ Dextrose 50.2 ml @ 200.8 mls/ hr DAILY INJ 03/17/25 10:00 03/26/25 10:24 200.8 MLS/HR Thiamine HCl 100 mg DAILY IV 03/18/25 10:00 03/26/25 10:24 100 MG Atorvastatin Calcium 40 mg HS PO 03/17/25 22:00 Hold Sucralfate 1 gm QID@0600,1130,1700,2200 GT 03/23/25 17:00 03/26/25 10:30 1 GM Fentanyl Citrate 250 ml @ 2.5 mls/hr Q24H IV 03/25/25 19:45 03/26/25 01:42 2.5 MLS/HR Labetalol HCl 5 mg Q2HPRN PRN IV 03/26/25 10:00 Pantoprazole Sodium 40 mg BID IV 03/26/25 22:00 Enteral Nutritional Formula 1,000 ml 30ML/HR GT 03/26/25 11:00 Examination Gen - mild conjunctival pallor, no scleral icterus Skin - Patients skin is warm and dry. HEENT - normocephalic, atraumatic, dry mucous membranes. Neck - supple, no lymphadenopathy Pulmonary - B/L equal air entry cardiovascular - regular S1,S2 heard GI - soft abdomen. Bowel sounds normoactive Neurological - Patient is sedated and on mechanical ventilation laboratory and microbiology Laboratory Tests 03/26/25 03:00 Test 03/26/25 03:00 Range/Units Serum Glucose 132 H 74-106 mg/dL Microbiology Date/Time Source Procedure Growth Status 03/16/25 16:36 Nose MRSA Screen - Final Complete 03/16/25 16:06 Sputum Gram Stain - Final Complete 03/16/25 16:06 Respiratory Culture - Final Stenotrophomonas maltophilia Escherichia coli Presumptive Milady albicans Complete 03/13/25 11:53 Stool Stool Culture - Final Complete 03/13/25 11:53 Stool Shiga Toxin I & II - Final Complete 03/12/25 11:55 Urine - Barrios Port Urine Culture - Final Complete 03/11/25 15:36 Blood Blood Culture - Final NO GROWTH AFTER 5 DAYS OF INCUBATION. Complete Problem List/Assessment/Plan Problem List/Assessment/Plan Assessment Upper GI bleeding likely from persistent duodenal ulcer Duodenal ulcer disease History of perforated duodenal ulcer s/p surgical repair Hiatal hernia Severe grade C linear erosive esophagitis with esophageal ulcers C. difficile colitis Elevated liver enzymes Severe anemia New multiple stroke in different arterial territories (MRI 03/18/25) Multiple chronic strokes GIOVANI on CKD likely due to VMN, improving Transaminitis Pneumonia Plan Continue on Protonix drip Continue tube feeding at 20 mL per hour and may increase to 30 check residuals Q shift, Monitor H&H, transfuse if HGB less than 7 LFTs improving, ALP high likely due to patient being on TPN IV metronidazole and ceftriaxone Hold off on anticoagulation and antiplatelet drugs because of likely active GI bleed Continue on TPN Plan discussed with Dr. Stoddard Plan discussed with: Other (JASPER Vasques) My Orders My Orders Orders - RICHARD TOSCANO RESIDENT Procedure Category Date Status Time Stool Occult Blood LAB 03/25/25 Logged 14:35 Nutritional PHA 03/26/25 In Process Supplements (Vital 11:00 Dietary Evaluation Review Recommendations by RD: Increase Calorie Intake, PPN/TPN Comments: Pt meets criteria 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 based on severe wt loss 35lb/24% in 5 month, intake <50% estimated requirement x 5 days, severe muscle wasting and fat depletion Nutrition Recommendation: 1) PPN/TPN if NPO continues 2) Advance to soft diet as medically feasible 3) Ensure Enlive 240ml TID if pt resumes PO diet 4) Monitor NPO status, lab values, weight trend, and I/O Expected Outcomes/Goals: Intake to meet >75% estimated needs GI symptoms to improve Fu 2-3 days Food and Nutrition Intake (Sev: <50% est energy req 5days Interpretation of weight loss: >10% in 6 months Body Fat Depletion (Severe): Mod to Severe Depletion Muscle Mass (Severe): Mod to Severe Depletion Protein Calorie Malnutrition: Severe Is there a minimum of two crit: Yes CC Plasma Assessment Blood Product Administration S: [id number] RICHARD TOSCANO RESIDENT Mar 26, 2025 11:50
[2025-03-26] MEDS: PANTOPRAZOLE 40 MG/10 ML VIAL INJ IV ONE (13:26)
[2025-03-26] MEDS: POTASSIUM PHOSPHATE 22 MEQ in SODIUM CHL 0.9% 100 ML IV ONE (14:59)
[2025-03-26 15:08] LABS: Hemoglobin 8.1 g/dL (13.5-17.5)
[2025-03-26 15:11] LABS: Hematocrit 24.3 % (41.0-53.0)
--- NOTE | 2025-03-26 17:08 | DVHPNRES ---
Progress Note Date Seen: Mar 26, 2025 Resident Creating Document: SKY DASH RESIDENT Has the PT tested + for MRSA If YES, has PT been informed?: No Medical Necessity Reason Pt with a Central, PICC or Fol: Yes The following are medically ne: Central Line, Barrios Catheter Subjective Review of Systems Jossue Perez he is a 49-year-old male past medical history of hypertension, hyperlipidemia, DVT, 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 The patient mentions he had passage of stool 7 times yesterday which was tarry black in color. Patient mentions he also had abdominal pain, nausea and a few episodes of vomiting for the last 2 days. He denies any fever,weakness or weight loss. He reports history of perforated duodenal ulcer s/p exp lap with prolonged ICU stay complicated with sepsis from cholecystitis s/p tracheostomy and removal. On arrival to the hospital, his hemoglobin was 4.2 and he had to be transfused with 2 units of PRBCs. He was kept NPO and NG tube placed. GI was consulted and they recommended continuing with IV Protonix drip scheduled patient for EGD on 03/13/2025. Patient was seen and examined on the bedside. He is on mechanical ventilation with FiO2 30%, Tidal volume 450 mL, respiratory rate 20, peep 5. The patient was on CPAP trial today, get exhausted, tachycardic, not able to pull any volume and later put back on AC mode. H/H 8.1/24.3. Liver ultrasound demonstrated acute cholecystitis with a dilated CBD 16 mm. MRCP is not possible now because patient is intubated and on mechanical ventilation. Surgery was consulted for further management of acute cholecystitis and he reviewed the image and mentioned that no intervention is needed now as there is no pericholecystic fluid or any sign of inflammation around gallbladder . The patient is tolerating tube feeding as 20 mL/hours and discontinued TPN. GI recommended no invasive procedure, slowly increase tube feeding as tolerated. The patient is scheduled for CPAP trial tomorrow . Objective vital signs Vital Sign Date Time Temp Pulse Resp B/P (MAP) Pulse Ox O2 Delivery O2 Flow Rate FiO2 03/26/25 16:40 103 22 152/100 (117) 100 30 03/26/25 16:00 Mechanical Ventilator+ 03/26/25 16:00 98.8 98.8 Total Intake and Output 03/25/25 03/25/25 03/26/25 15:00 23:00 07:00 Intake Total 579.8 ml 630.110 ml 717.295 ml Output Total 1450 ml 750 ml Balance 579.8 ml -819.890 ml -32.705 ml medications Current Medications Medications Dose Ordered Sig/Wally Route Start Time Stop Time Status Last Admin Dose Admin Ondansetron HCl 4 mg Q4HP PRN IV 03/12/25 00:00 Hydralazine HCl 10 mg Q6HP PRN IV 03/12/25 17:30 03/23/25 05:19 10 MG Lorazepam 1 mg Q8HP PRN IV 03/12/25 21:45 03/12/25 21:58 1 MG Midazolam HCl 100 ml @ 1 mls/hr Q24H IV 03/16/25 16:30 03/23/25 14:52 2 MLS/HR Diagnostic Test (Pha) 1 strip Q6HR 03/16/25 18:00 03/26/25 12:00 1 STRIP Insulin Human Regular FOLLOW SLIDING SCALE Q6HR SC 03/16/25 18:00 03/26/25 05:56 2 UNITS Dextrose 50 ml UD IV 03/16/25 17:15 Folic Acid 1 mg/ Dextrose 50.2 ml @ 200.8 mls/ hr DAILY INJ 03/17/25 10:00 03/26/25 10:24 200.8 MLS/HR Thiamine HCl 100 mg DAILY IV 03/18/25 10:00 03/26/25 10:24 100 MG Atorvastatin Calcium 40 mg HS PO 03/17/25 22:00 Hold Sucralfate 1 gm QID@0600,1130,1700,2200 GT 03/23/25 17:00 03/26/25 10:30 1 GM Fentanyl Citrate 250 ml @ 2.5 mls/hr Q24H IV 03/25/25 19:45 03/26/25 01:42 2.5 MLS/HR Labetalol HCl 5 mg Q2HPRN PRN IV 03/26/25 10:00 Pantoprazole Sodium 40 mg BID IV 03/26/25 22:00 Enteral Nutritional Formula 1,000 ml 30ML/HR GT 03/26/25 11:00 Examination Examination General: RASS -1, afebrile, mucosae are moist Cardiovascular: Normal S1 and S2. No murmurs, gallops or rubs Respiratory: Mechanically assisted ventilation, equal bilateral airway entree. Clear lung sounds on auscultation Abdomen: Soft, nontender, no organomegaly, normal bowel sounds MSK/skin: Mobilization of limbs cannot be evaluated. Skin is dry and warm. Neurological: Orientation cannot be assessed. No apparent motor no sensitive deficits. Pupils are isocoric and reactive laboratory and microbiology Laboratory Tests 03/26/25 14:40 03/26/25 03:00 Test 03/26/25 03:00 Range/Units Serum Glucose 132 H 74-106 mg/dL Microbiology Date/Time Source Procedure Growth Status 03/16/25 16:36 Nose MRSA Screen - Final Complete 03/16/25 16:06 Sputum Gram Stain - Final Complete 03/16/25 16:06 Respiratory Culture - Final Stenotrophomonas maltophilia Escherichia coli Presumptive Milady albicans Complete 03/13/25 11:53 Stool Stool Culture - Final Complete 03/13/25 11:53 Stool Shiga Toxin I & II - Final Complete 03/12/25 11:55 Urine - Barrios Port Urine Culture - Final Complete 03/11/25 15:36 Blood Blood Culture - Final NO GROWTH AFTER 5 DAYS OF INCUBATION. Complete Labs and/or images reviewed: Labs reviewed by me, Image(s) reviewed by me Problem List/Assessment/Plan Problem List/Assessment/Plan Assessment and plan : NEURO: Acute metabolic encephalopathy secondary to acute ischemic stroke Acute or subacute ischemic stroke RASS score: - 1 - CT head without contrast demonstrated new medial right parieto-occipital focal region of diminished parenchymal attenuation within the medial right parietal occipital lobes. This is concerning for an acute to subacute infarct with chronic multifocal lacunar infarct - MRI showed Infarcts involving multiple vascular territories involved medial right occipital lobe, posterior left occipital lobe, and left lopes radiata white matter tracts. Few additional tiny foci of diffusion restriction at the anterior right parietal cortex. - Neurology on board - hold aspirin and Plavix for now because of GI bleeding - hold atorvastatin as patient is NPO CARDIOVASCULAR: Chronic diastolic heart failure with preserved ejection fraction - Echo on 11/12 demonstrated EF 65%, MILD LVH AND MILD LV DIASTOLIC DYSFUNCTION - elevated BNP - CxR showed Bilateral interstitial opacities, small left basilar consolidation and pleural effusion PULMONARY: Acute hypoxic respiratory failure S/P intubation GASTROINTESTINAL: Acute GI bleed upper vs lower Partial small Intestinal obstruction likely secondary to fecal impaction. Cholelithiasis C diff positive Transaminitis likely secondary to low hepatic perfusion Elevated alkaline phosphatase -CT abdomen/pelvis showed low-grade distal partial obstruction due to fecal retention. - Gastrograffin study showed Contrast is identified within the colon by 3 hours. No evidence of bowel obstruction. -EGD on 03/13/25 showed 1-2 cm sliding-type hiatal hernia with severe grade C linear erosive esophagitis with esophageal ulcers extending into the distal 15 cm of the esophagus persistent duodenal bulb ulcer seen just inside the pyloric opening which was large coalescing with a visible sutures; there was no active bleeding or visible vessel but there was acute on chronic inflammation deformity of the postbulbar duodenal area and but there was area of debris and ongoing chronic ulceration inflammation and the endoscope was not advanced beyond this area mild gastritis and some old coffee-ground within the stomach - GB U/S demonstrated gallbladder wall thickening and pericholecystic edema, concerning for cholecystitis and dilated CBD up to 16 mm. - NPO - Tube feeding at 20 mL/hours - IV Protonix 40 mg bid - Carafate suspension 1 g q.i.d. - Zofran 4 mg IV q.4 PRN - Discontinued IV ceftriaxone and metronidazole - GI and surgery are on the board - pending bleeding scan as patient is intubated and on mechanical ventilation - Monitor Hand H, transfuse if hemoglobin less than 7 GENITOURINARY: GIOVANI on CKD likely hemodynamically mediated/VMN resolved - Monitor BMP METABOLIC: Hypernatremia Hypokalemia Hypophosphatemia - monitor BMP HEME: Severe microcytic hypochromic anemia due to GI bleeding Iron deficiency due to above Bilateral superficial thrombophlebitis - Patient received 4 units of PRBC - Monitor H&H INFECTIOUS DISEASE: Acute C diff infection - hold po vanc because of upper GI bleeding DIET: TPN, Tube feeding DVT prophylax: SCD GI prophylaxis: Protonix Bowel regimen: Code status: Full code LINES/DRAINS/ACCESS: ETT: Intubated on 03/16/2025 IV access: Right IJ placed on 03/16/2025 Drips: Precedex drip, tube feeding Abrrios catheter: DISPOSITION: ICU Patient's status discussed with RN, Critical care time spent more than 73 minutes, including patient care, chart review, and updating the family. Excluding any procedures. Case discussed with Dr. Garcia Plan discussed with: Other (RN) My Orders My Orders Orders - SKY DASH Procedure Category Date Status Time Chest Portable XY 03/26/25 Resulted 04:00 Abg W/ Co-Ox RT 03/26/25 Logged 04:00 Labetalol Hcl PHA 03/26/25 In Process (Labetalol Hcl) 10:00 Pantoprazole PHA 03/26/25 In Process (Protonix) 22:00 Dietary Evaluation Review Recommendations by RD: Increase Calorie Intake, PPN/TPN Comments: Pt meets criteria 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 based on severe wt loss 35lb/24% in 5 month, intake <50% estimated requirement x 5 days, severe muscle wasting and fat depletion Nutrition Recommendation: 1) PPN/TPN if NPO continues 2) Advance to soft diet as medically feasible 3) Ensure Enlive 240ml TID if pt resumes PO diet 4) Monitor NPO status, lab values, weight trend, and I/O Expected Outcomes/Goals: Intake to meet >75% estimated needs GI symptoms to improve Fu 2-3 days Food and Nutrition Intake (Sev: <50% est energy req 5days Interpretation of weight loss: >10% in 6 months Body Fat Depletion (Severe): Mod to Severe Depletion Muscle Mass (Severe): Mod to Severe Depletion Protein Calorie Malnutrition: Severe Is there a minimum of two crit: Yes CC Plasma Assessment Blood Product Administration S: [id number] Date of Service: Mar 26, 2025 Billing Provider: DIANA GARCIA MD Common Visit Codes: 88429-[id number] CARE 30-74 MIN SKY DASH Mar 26, 2025 17:08
[2025-03-26] MEDS: PANTOPRAZOLE 40 MG/10 ML VIAL INJ IV SCH (21:03)
[2025-03-26] MEDS ORDERED: DEXMEDETOMIDINE HCL IN D5W 100 ML IV SCH (21:15)
[2025-03-26] MEDS ORDERED: TPN PER PHARMACY IV NR (22:00)
--- NOTE | 2025-03-26 22:15 | DVHPN2 ---
Subjective DOS: 03/26/2025 Patient seen and examined at bedside. Intubated on mechanical ventilator. Overnight events reviewed. Changes from previous H/P or p: No Changes Eyes: No Pain, No Vision change, No Conjunctivae inflammation, No Eyelid inflammation, No Other, No Redness ENT: No Ear pain, No Ear discharge, No Nose pain, No Nose discharge, No Nose congestion, No Mouth pain, No Mouth swelling, No Throat pain, No Throat swelling, No Other Cardiovascular: No Chest Pain, No Palpitations, No Orthopnea, No Paroxysmal Noc. Dyspnea, No Edema, No Lt Headedness, No Other Respiratory: No Cough, No Dry, No Shortness of breath, No SOB with excertion, No Wheezing, No Hemoptysis, No Pleuritic Pain, No Sputum, No Other Gastrointestinal: Melena Musculoskeletal: No other, No neck pain, No shoulder pain, No arm pain, No back pain, No hand pain, No leg pain, No foot pain Skin: No Rash, No Lesions, No Jaundice, No Bruising, No Other Objective Vitals Vital Signs Date Time Temp Pulse Resp B/P (MAP) Pulse Ox O2 Delivery O2 Flow Rate FiO2 03/26/25 20:36 102 27 157/95 (115) 100 30 03/26/25 20:00 Mechanical Ventilator+ 03/26/25 16:00 98.8 98.8 Intake/Output Intake and Output 03/26/25 07:00 Intake Total 1927.205 ml Output Total 2200 ml Balance -272.795 ml Intake Oral 20 ml IV Total 1707.205 ml Tube Feeding 200 ml Output Urine Total 2200 ml # Bowel Movements 1 Exam Gen.: Patient lying in bed in medical ICU. Intubated on mechanical ventilator. Head: Normocephalic, atraumatic. Eyes: PERRLA. Ears: Normal external anatomy. Throat: Endotracheal tube and orogastric tube in place. Neck: Supple, trachea midline. Chest: Transmitted breath sounds bilaterally. Decreased air entry bilaterally. No wheezing. Bibasilar crackles. Cardiovascular: Positive S1, positive S2. Regular rate and rhythm. Abdomen: Positive bowel sounds in all 4 quadrants. Soft, nontender, nondistended. : Barrios in place. Normal external genitalia. Rectal: Deferred. Skin: Warm, dry. Intact. Extremities: 2+ radial pulses bilaterally. No lower extremity edema. Neuro: Off sedation. Medications Current Medications Medications Dose Ordered Sig/Wally Route Start Time Stop Time Status Last Admin Dose Admin Ondansetron HCl 4 mg Q4HP PRN IV 03/12/25 00:00 Hydralazine HCl 10 mg Q6HP PRN IV 03/12/25 17:30 03/23/25 05:19 10 MG Lorazepam 1 mg Q8HP PRN IV 03/12/25 21:45 03/12/25 21:58 1 MG Midazolam HCl 100 ml @ 1 mls/hr Q24H IV 03/16/25 16:30 03/23/25 14:52 2 MLS/HR Diagnostic Test (Pha) 1 strip Q6HR 03/16/25 18:00 03/26/25 17:36 1 STRIP Insulin Human Regular FOLLOW SLIDING SCALE Q6HR SC 03/16/25 18:00 03/26/25 05:56 2 UNITS Dextrose 50 ml UD IV 03/16/25 17:15 Folic Acid 1 mg/ Dextrose 50.2 ml @ 200.8 mls/ hr DAILY INJ 03/17/25 10:00 03/26/25 10:24 200.8 MLS/HR Thiamine HCl 100 mg DAILY IV 03/18/25 10:00 03/26/25 10:24 100 MG Atorvastatin Calcium 40 mg HS PO 03/17/25 22:00 Hold Sucralfate 1 gm QID@0600,1130,1700,2200 GT 03/23/25 17:00 03/26/25 21:03 1 GM Fentanyl Citrate 250 ml @ 2.5 mls/hr Q24H IV 03/25/25 19:45 03/26/25 01:42 2.5 MLS/HR Labetalol HCl 5 mg Q2HPRN PRN IV 03/26/25 10:00 Pantoprazole Sodium 40 mg BID IV 03/26/25 22:00 03/26/25 21:03 40 MG Enteral Nutritional Formula 1,000 ml 30ML/HR GT 03/26/25 11:00 Laboratory Results Laboratory Tests 03/26/25 03:00 03/26/25 14:40 Chemistry Test 03/26/25 03:00 Albumin 2.5 g/dL (3.2-4.8) L Calcium Level 8.1 mg/dL (8.7-10.4) L Magnesium Level 2.0 mg/dL (1.6-2.6) Phosphorus Level 2.5 mg/dL (2.4-5.1) Total Protein 5.7 g/dL (5.7-8.2) LFT Test 03/26/25 03:00 Alanine Aminotransferase (ALT) 82 U/L (7-40) H Alkaline Phosphatase 423 U/L (46-116) H Aspartate Amino Transferase (AST) 35 U/L (13-40) Total Bilirubin 0.3 mg/dL (0.2-1.0) Urinalysis Test 03/12/25 05:00 03/12/25 10:20 03/17/25 06:30 Urine Color Light-yellow (Yellow) Urine Clarity Clear (Clear) Urine pH 5.5 (5.0-9.0) Urine Specific [place] 1.013 (1.001-1.035) Urine Protein Trace (Negative) H Urine Ketones Trace (Negative) Urine Blood Negative /uL (Negative) Urine Nitrite Negative (Negative) Urine Bilirubin Negative (Negative) Urine Urobilinogen Normal mg/dL (Negative) Urine Leukocyte Esterase Negative /uL (Negative) Urine RBC <1 /hpf (0 - 3) Urine Microscopic WBC < 1 /HPF (0-3) Urine Squamous Epithelial Cells None seen /hpf (<5) Urine Bacteria None seen /hpf (None Seen) Urine Glucose Normal mg/dL (Normal) Urine Protein/Creatinine Ratio 2.26 Urine Total Protein 23.6 mg/dL (1-14) H Urine Creatinine 56.14 mg/dL (30.0-125.0) Urine Sodium 13 mmol/L (40-220) L Blood Gas Results Test 03/26/25 07:29 Arterial Blood pH 7.484 (7.350-7.450) FiO2 % 30.0 Microbiology Microbiology Date/Time Source Procedure Growth Status 03/16/25 16:36 Nose MRSA Screen - Final Complete 03/16/25 16:06 Sputum Gram Stain - Final Complete 03/16/25 16:06 Respiratory Culture - Final Stenotrophomonas maltophilia Escherichia coli Presumptive Milady albicans Complete 03/13/25 11:53 Stool Stool Culture - Final Complete 03/13/25 11:53 Stool Shiga Toxin I & II - Final Complete 03/12/25 11:55 Urine - Barrios [place] Urine Culture - Final Complete 03/11/25 15:36 Blood Blood Culture - Final NO GROWTH AFTER 5 DAYS OF INCUBATION. Complete Assessment/Plan Assessment/Plan Impression: Acute hypoxic respiratory failure On mechanical ventilator Acute metabolic encephalopathy Multiple strokes Chronic diastolic heart failure with preserved EF GI hemorrhage Anemia GIOVANI on CKD Events: Remains on vent support On AC mode; RR 22, VT 500, PEEP 5, FiO2 30% Taper FiO2 as tolerated On Fentanyl drip for analgesia Continue antibiotics Sucralfate Discontinue Protonix GI recommendations appreciated. Continue to monitor hemoglobin closely - stable at 7.3 g/dL Transfuse if less than 7.0 g/dL. Discontinue TPN. Tube feeds for nutritional support - tolerating SBT/NOE CPAP trial CPAP with PS 20, PEEP of 5. Labs and imaging reviewed. Rest of plan as noted below. Plan: s/p intubation on mechanical ventilator. On AC mode; RR 20, VT 500, PEEP 5, FiO2 30% Titrate FIO2 to keep O2 saturation above 90%. VAP bundle. Daily ABG and CXR while intubated Continue antibiotics. Follow up cultures. Pressors as necessary for hemodynamic support Titrate to keep mean arterial pressure greater than 65 mmHg. Monitor hemoglobin Transfuse if less than 7.0 g/dL. NGT to LIS Protonix drip F/u GI and Surgery recs Accu-Cheks, ISS PRN Monitor renal function Monitor electrolytes. Supplement as necessary. Monitor ins and outs. Maintain euvolemia. TPN for nutritional support Counseled against vaping and marijuana use. GI prophylaxis. DVT prophylaxis. Prognosis: Poor given patient's multiple co-morbidities. Condition: Critical Rest of plan per hospitalist and other consultants. A total of 35 minutes of critical care time was spent reviewing the patient record, examining the patient, making a diagnostic and therapeutic plan, discussing this plan with the medical personnel, following up on diagnostic studies and following the patient for clinical stability excluding any and all procedures. At least 50% of this time was spent in direct, [id number] contact. Thank you, Dr. Khoury, for allowing me to participate in this patient's care. Further recommendations will depend on the patient's clinical course. Please do not hesitate to contact me if you have any questions or concerns. This medical document was created using an electronic medical record system with [employer] system. Although these documentations are being carefully reviewed, there may still be some phonetic and typographical changes. The errors are purely typographical, due to imperfection on the software program, and do not reflect any compromise in the patient's medical care. Plan discussed with: Other (JASPER Rea) Visit Coding Pulmonary Billing Provider: ARIE LOPEZ MD Date of Service if different f: Mar 26, 2025 Common Visit Codes: [id number] INP/OBS CARE(HIGH), [id number] CARE 30-74 MIN ARIE LOPEZ MD Mar 26, 2025 22:15
[2025-03-27] VITALS (97 sets, daily range): BP systolic 115–192; BP diastolic 62–114; PULSE 61–126; RESP 17–34; TEMP 98–98.9; O2SAT 93–100
[2025-03-27 03:48] LABS: Mean Corpuscular Hemoglobin 27.3 pg (28.0-32.0)
[2025-03-27 03:54] LABS: Hematocrit 24.3 % (41.0-53.0); Hemoglobin 8.0 g/dL (13.5-17.5); Mean Corpuscular Volume 82.6 fL (80.0-100.0); Nucleated Red Blood Cells % 0.2 %
[2025-03-27 04:07] LABS: Anion Gap 9 (5-15); BUN/Creatinine Ratio 29.2 (10.0-20.0); Carbon Dioxide 27 mmol/L (20-31); Chloride 105 mmol/L (98-107); Glucose 78 mg/dL (74-106); Magnesium 2.0 mg/dL (1.6-2.6); Potassium 3.6 mmol/L (3.5-5.1); Sodium 141 mmol/L (136-145); Total Protein 6.2 g/dL (5.7-8.2)
[2025-03-27 04:08] LABS: Bilirubin, Total 0.4 mg/dL (0.2-1.0)
[2025-03-27 04:13] LABS: Alanine Aminotransferase 74 U/L (7-40); Albumin 2.7 g/dL (3.2-4.8); Alkaline Phosphatase 393 U/L (46-116); Blood Urea Nitrogen 33 mg/dL (9-23); Calcium 8.1 mg/dL (8.7-10.4)
[2025-03-27 04:51] LABS: Anisocytosis Moderate
[2025-03-27 04:52] LABS: Giant Platelets Few
--- NOTE | 2025-03-27 05:36 | DVH ---
CHEST RADIOGRAPH Indication: mechanical ventilation Technique: Single frontal view of the chest was obtained COMPARISON: XY CHEST PORTABLE on DOS: 03/26/25, XY CHEST PORTABLE on DOS: 03/25/25, XY CHEST PORTABLE on DOS: 03/24/25, XY CHEST PORTABLE on DOS: 03/23/25, XY CHEST XRAY 1 VIEW on DOS: 03/22/25 FINDINGS: Lines and Tubes: Endotracheal tube, enteric catheter and right central venous catheter in satisfactory position. Lungs: Mild diffuse increased interstitial prominence, unchanged Pleura: No effusion.No pneumothorax. Cardiomediastinal contours: Unremarkable Bones: Unremarkable IMPRESSION: Lines and tubes in satisfactory position. No significant interval change.
[2025-03-27 08:40] LABS: Base Excess 2.2 mmol/L (-2.0-3.0)
[2025-03-27] MEDS: LABETALOL HCL 20 MG/4 ML VL IV PRN ×2 (09:32→13:11)
[2025-03-27 09:47] LABS: Base Excess -0.4 mmol/L (-2.0-3.0)
--- NOTE | 2025-03-27 09:58 | DVHPN2 ---
Progress Note Date Seen: Mar 27, 2025 Has the PT tested + for MRSA If YES, has PT been informed?: No Medical Necessity Reason Pt with a Central, PICC or Fol: Yes The following are medically ne: Central Line, Barrios Catheter Subjective Review of Systems: RESPIRATORY:Abnormal Other Systems: Patient seen and examined by myself today in follow-up, patient remained intubated on ventilator Objective vital signs Vital Sign Date Time Temp Pulse Resp B/P (MAP) Pulse Ox O2 Delivery O2 Flow Rate FiO2 03/27/25 09:32 127 176/110 03/27/25 08:31 100 30 03/27/25 08:05 22 03/27/25 08:00 Mechanical Ventilator+ 03/27/25 04:00 98.3 98.3 Total Intake and Output 03/26/25 03/26/25 03/27/25 15:00 23:00 07:00 Intake Total 270.065 ml 85.725 ml 20 ml Output Total 450 ml 750 ml Balance 270.065 ml -364.275 ml -730 ml medications Current Medications Medications Dose Ordered Sig/Wally Route Start Time Stop Time Status Last Admin Dose Admin Ondansetron HCl 4 mg Q4HP PRN IV 03/12/25 00:00 Hydralazine HCl 10 mg Q6HP PRN IV 03/12/25 17:30 03/27/25 09:04 10 MG Lorazepam 1 mg Q8HP PRN IV 03/12/25 21:45 03/12/25 21:58 1 MG Midazolam HCl 100 ml @ 1 mls/hr Q24H IV 03/16/25 16:30 03/23/25 14:52 2 MLS/HR Diagnostic Test (Pha) 1 strip Q6HR 03/16/25 18:00 03/27/25 06:02 1 STRIP Insulin Human Regular FOLLOW SLIDING SCALE Q6HR SC 03/16/25 18:00 03/26/25 05:56 2 UNITS Dextrose 50 ml UD IV 03/16/25 17:15 Folic Acid 1 mg/ Dextrose 50.2 ml @ 200.8 mls/ hr DAILY INJ 03/17/25 10:00 03/27/25 09:43 200.8 MLS/HR Thiamine HCl 100 mg DAILY IV 03/18/25 10:00 03/27/25 09:35 100 MG Atorvastatin Calcium 40 mg HS PO 03/17/25 22:00 Hold Sucralfate 1 gm QID@0600,1130,1700,2200 GT 03/23/25 17:00 03/27/25 06:02 1 GM Fentanyl Citrate 250 ml @ 2.5 mls/hr Q24H IV 03/25/25 19:45 03/26/25 01:42 2.5 MLS/HR Labetalol HCl 5 mg Q2HPRN PRN IV 03/26/25 10:00 03/27/25 09:32 5 MG Pantoprazole Sodium 40 mg BID IV 03/26/25 22:00 03/27/25 09:32 40 MG Enteral Nutritional Formula 1,000 ml 30ML/HR GT 03/26/25 11:00 Examination: LUNGS:Normal, CVS:Normal, MSK:Normal laboratory and microbiology Laboratory Tests 03/27/25 03:02 Test 03/27/25 03:02 Range/Units Serum Glucose 78 74-106 mg/dL Microbiology Date/Time Source Procedure Growth Status 03/16/25 16:36 Nose MRSA Screen - Final Complete 03/16/25 16:06 Sputum Gram Stain - Final Complete 03/16/25 16:06 Respiratory Culture - Final Stenotrophomonas maltophilia Escherichia coli Presumptive Milady albicans Complete 03/13/25 11:53 Stool Stool Culture - Final Complete 03/13/25 11:53 Stool Shiga Toxin I & II - Final Complete 03/12/25 11:55 Urine - Barrios Port Urine Culture - Final Complete 03/11/25 15:36 Blood Blood Culture - Final NO GROWTH AFTER 5 DAYS OF INCUBATION. Complete Problem List/Assessment/Plan Problem List/Assessment/Plan 49 years old male with past medical history of CVA, dyslipidemia, hypertension, left knee surgery, Chronic kidney disease, history of severe Acute kidney injury needed inpatient dialysis previous admission here and then renal recovery presented with chief complaints of diarrhea for the past 5 to 6 days, he also has history of perforated duodenal ulcer status post exploratory laparotomy previous admission, cholecystitis, status post tracheostomy Patient presented to emergency room with hemoglobin of 4.2,s/p 3 U prbc,, s/p egd noted findings. Assessment: Acute kidney injury superimposed Chronic Kidney Disease secondary hemodynamic mediated Acute respiratory failure, patient intubated on ventilator Hypernatremia secondary to dehydration Duodenal ulcer leading to GI bleeding and severe anemia, status post 3 PRBC transfusion History of CVA Recurrent CVA Hypertension C diff diarrhea Severe protein malnutrition/cachexia Hypokalemia Hypophosphatemia Plan/recommendation: * Kidney function is improving * Increased urine output * Na level normalized appropriately * K-Phos IV piggyback * Replete potassium * Good urine output * Strict I&Os * We will follow up with the patient Plan discussed with: Other (Nurse) Dietary Evaluation Review Recommendations by RD: Increase Calorie Intake, PPN/TPN Comments: Pt meets criteria 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 based on severe wt loss 35lb/24% in 5 month, intake <50% estimated requirement x 5 days, severe muscle wasting and fat depletion Nutrition Recommendation: 1) PPN/TPN if NPO continues 2) Advance to soft diet as medically feasible 3) Ensure Enlive 240ml TID if pt resumes PO diet 4) Monitor NPO status, lab values, weight trend, and I/O Expected Outcomes/Goals: Intake to meet >75% estimated needs GI symptoms to improve Fu 2-3 days Food and Nutrition Intake (Sev: <50% est energy req 5days Interpretation of weight loss: >10% in 6 months Body Fat Depletion (Severe): Mod to Severe Depletion Muscle Mass (Severe): Mod to Severe Depletion Protein Calorie Malnutrition: Severe Is there a minimum of two crit: Yes CC Plasma Assessment Blood Product Administration S: [id number] MILADY ANDERSON MD Mar 27, 2025 09:58
[2025-03-27] MEDS: LOSARTAN POTASSIUM 25 MG TAB PO ONE (16:21)
--- NOTE | 2025-03-27 16:35 | DVHPNRES ---
Progress Note Date Seen: Mar 27, 2025 Resident Creating Document: SKY DASH RESIDENT Has the PT tested + for MRSA If YES, has PT been informed?: No Medical Necessity Reason Pt with a Central, PICC or Fol: Yes The following are medically ne: Central Line, Barrios Catheter Subjective Review of Systems Jossue Perez he is a 49-year-old male past medical history of hypertension, hyperlipidemia, DVT, 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 The patient mentions he had passage of stool 7 times yesterday which was tarry black in color. Patient mentions he also had abdominal pain, nausea and a few episodes of vomiting for the last 2 days. He denies any fever,weakness or weight loss. He reports history of perforated duodenal ulcer s/p exp lap with prolonged ICU stay complicated with sepsis from cholecystitis s/p tracheostomy and removal. On arrival to the hospital, his hemoglobin was 4.2 and he had to be transfused with 2 units of PRBCs. He was kept NPO and NG tube placed. GI was consulted and they recommended continuing with IV Protonix drip scheduled patient for EGD on 03/13/2025. Patient was seen and examined on the bedside. The patient passed the CPAP trial today and later extubated and currently on nasal cannula 6 L oxygen saturating 95%. Patient is tolerating tube feeding at 30 mL/hours and H&H today 8.0/24.3. Blood pressure is elevated at 179/108, started nifedipine 60 mg p.o. daily, losartan 25 mg daily and IV labetalol 5 mg q.2h p.r.n. Objective vital signs Vital Sign Date Time Temp Pulse Resp B/P (MAP) Pulse Ox O2 Delivery O2 Flow Rate FiO2 03/27/25 16:21 179/108 03/27/25 15:15 111 32 98 03/27/25 14:00 Simple Mask* 9 35 Cool Aerosol 35 03/27/25 12:00 98.0 98.0 Total Intake and Output 03/26/25 03/26/25 03/27/25 15:00 23:00 07:00 Intake Total 270.065 ml 85.725 ml 20 ml Output Total 450 ml 750 ml Balance 270.065 ml -364.275 ml -730 ml medications Current Medications Medications Dose Ordered Sig/Wally Route Start Time Stop Time Status Last Admin Dose Admin Ondansetron HCl 4 mg Q4HP PRN IV 03/12/25 00:00 Hydralazine HCl 10 mg Q6HP PRN IV 03/12/25 17:30 03/27/25 09:04 10 MG Lorazepam 1 mg Q8HP PRN IV 03/12/25 21:45 03/12/25 21:58 1 MG Midazolam HCl 100 ml @ 1 mls/hr Q24H IV 03/16/25 16:30 03/23/25 14:52 2 MLS/HR Diagnostic Test (Pha) 1 strip Q6HR 03/16/25 18:00 03/27/25 12:03 1 STRIP Insulin Human Regular FOLLOW SLIDING SCALE Q6HR SC 03/16/25 18:00 03/26/25 05:56 2 UNITS Dextrose 50 ml UD IV 03/16/25 17:15 Folic Acid 1 mg/ Dextrose 50.2 ml @ 200.8 mls/ hr DAILY INJ 03/17/25 10:00 03/27/25 09:43 200.8 MLS/HR Thiamine HCl 100 mg DAILY IV 03/18/25 10:00 03/27/25 09:35 100 MG Atorvastatin Calcium 40 mg HS PO 03/17/25 22:00 Hold Sucralfate 1 gm QID@0600,1130,1700,2200 GT 03/23/25 17:00 03/27/25 11:30 1 GM Pantoprazole Sodium 40 mg BID IV 03/26/25 22:00 03/27/25 09:32 40 MG Enteral Nutritional Formula 1,000 ml 30ML/HR GT 03/26/25 11:00 Labetalol HCl 10 mg Q2HPRN PRN IV 03/27/25 11:30 03/27/25 13:11 10 MG Nifedipine 60 mg DAILY PO 03/28/25 10:00 Losartan Potassium 25 mg DAILY PO 03/28/25 10:00 Examination Physical examination: General Appearance: Alert, Oriented X3, Cooperative, on nasal canula 6L HEENT: Atraumatic, PERRLA, EOMI, Mucous membrane moist/pink Respiratory: Clear to auscultation, Normal air movement Cardiovascular: Regular rate, Normal S1, Normal S2, No murmurs, no chest wall tenderness Abdominal: Normal bowel sounds, Soft, No tenderness, No hepatospenomegaly, No masses Extremities: No clubbing, No cyanosis, No edema, Normal pulses, No tenderness/swelling Skin: No rashes, No breakdown, No significant lesion Neuro: Normal speech, right-sided weakness, Strength at 5/5 X2 ext, Normal tone, Sensation intact, grossly intact cranial nerves Psych/Mental Status: could not be assessed laboratory and microbiology Laboratory Tests 03/27/25 03:02 Test 03/27/25 03:02 Range/Units Serum Glucose 78 74-106 mg/dL Microbiology Date/Time Source Procedure Growth Status 03/16/25 16:36 Nose MRSA Screen - Final Complete 03/16/25 16:06 Sputum Gram Stain - Final Complete 03/16/25 16:06 Respiratory Culture - Final Stenotrophomonas maltophilia Escherichia coli Presumptive Milady albicans Complete 03/13/25 11:53 Stool Stool Culture - Final Complete 03/13/25 11:53 Stool Shiga Toxin I & II - Final Complete 03/12/25 11:55 Urine - Barrios Port Urine Culture - Final Complete 03/11/25 15:36 Blood Blood Culture - Final NO GROWTH AFTER 5 DAYS OF INCUBATION. Complete Labs and/or images reviewed: Labs reviewed by me, Image(s) reviewed by me Problem List/Assessment/Plan Problem List/Assessment/Plan Assessment and plan : NEURO: Acute metabolic encephalopathy secondary to acute ischemic stroke Acute or subacute ischemic stroke Hypertensive emergency RASS score: - 1 - CT head without contrast demonstrated new medial right parieto-occipital focal region of diminished parenchymal attenuation within the medial right parietal occipital lobes. This is concerning for an acute to subacute infarct with chronic multifocal lacunar infarct - MRI showed Infarcts involving multiple vascular territories involved medial right occipital lobe, posterior left occipital lobe, and left lopes radiata white matter tracts. Few additional tiny foci of diffusion restriction at the anterior right parietal cortex. - Neurology on board - hold aspirin and Plavix for now because of GI bleeding - atorvastatin 40 mg p.o. daily - nifedipine 60 mg p.o. daily and losartan 25 mg daily CARDIOVASCULAR: Chronic diastolic heart failure with preserved ejection fraction - Echo on 11/12 demonstrated EF 65%, MILD LVH AND MILD LV DIASTOLIC DYSFUNCTION - elevated BNP - CxR showed Bilateral interstitial opacities, small left basilar consolidation and pleural effusion PULMONARY: Acute hypoxic respiratory failure S/P intubation GASTROINTESTINAL: Acute GI bleed upper vs lower Partial small Intestinal obstruction likely secondary to fecal impaction. Cholelithiasis C diff positive Transaminitis likely secondary to low hepatic perfusion Elevated alkaline phosphatase -CT abdomen/pelvis showed low-grade distal partial obstruction due to fecal retention. - Gastrograffin study showed Contrast is identified within the colon by 3 hours. No evidence of bowel obstruction. -EGD on 03/13/25 showed 1-2 cm sliding-type hiatal hernia with severe grade C linear erosive esophagitis with esophageal ulcers extending into the distal 15 cm of the esophagus persistent duodenal bulb ulcer seen just inside the pyloric opening which was large coalescing with a visible sutures; there was no active bleeding or visible vessel but there was acute on chronic inflammation deformity of the postbulbar duodenal area and but there was area of debris and ongoing chronic ulceration inflammation and the endoscope was not advanced beyond this area mild gastritis and some old coffee-ground within the stomach - GB U/S demonstrated gallbladder wall thickening and pericholecystic edema, concerning for cholecystitis and dilated CBD up to 16 mm. - NPO - Tube feeding at 30 mL/hours - IV Protonix 40 mg bid - Carafate suspension 1 g q.i.d. - Zofran 4 mg IV q.4 PRN - Discontinued IV ceftriaxone and metronidazole - GI and surgery are on the board - pending bleeding scan as patient is intubated and on mechanical ventilation - Monitor Hand H, transfuse if hemoglobin less than 7 GENITOURINARY: GIOVANI on CKD likely hemodynamically mediated/VMN resolved - Monitor BMP METABOLIC: Hypernatremia Hypokalemia Hypophosphatemia - monitor BMP HEME: Severe microcytic hypochromic anemia due to GI bleeding Iron deficiency due to above Bilateral superficial thrombophlebitis - Patient received 4 units of PRBC - Monitor H&H INFECTIOUS DISEASE: Acute C diff infection - hold po vanc because of upper GI bleeding DIET: TPN, Tube feeding DVT prophylax: SCD GI prophylaxis: Protonix Bowel regimen: Code status: Full code LINES/DRAINS/ACCESS: Extubated on 03/27/25 IV access: Right IJ placed on 03/16/2025 Drips: Precedex drip, tube feeding Barrios catheter: DISPOSITION: ICU Patient's status discussed with RN, Critical care time spent more than 73 minutes, including patient care, chart review, and updating the family. Excluding any procedures. Case discussed with Dr. Garcia Plan discussed with: Other (RN) My Orders My Orders Orders - SKY DASH RESIDENT Procedure Category Date Status Time Chest Portable XY 03/27/25 Resulted 04:00 Abg W/ Co-Ox RT 03/27/25 Logged 04:00 Nifedipine Er PHA 03/28/25 In Process (Procardia Xl 10:00 Losartan Tablet PHA 03/28/25 In Process (Cozaar Tablet) 10:00 Dietary Evaluation Review Recommendations by RD: Increase Calorie Intake, PPN/TPN Comments: Pt meets criteria 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 based on severe wt loss 35lb/24% in 5 month, intake <50% estimated requirement x 5 days, severe muscle wasting and fat depletion Nutrition Recommendation: 1) PPN/TPN if NPO continues 2) Advance to soft diet as medically feasible 3) Ensure Enlive 240ml TID if pt resumes PO diet 4) Monitor NPO status, lab values, weight trend, and I/O Expected Outcomes/Goals: Intake to meet >75% estimated needs GI symptoms to improve Fu 2-3 days Food and Nutrition Intake (Sev: <50% est energy req 5days Interpretation of weight loss: >10% in 6 months Body Fat Depletion (Severe): Mod to Severe Depletion Muscle Mass (Severe): Mod to Severe Depletion Protein Calorie Malnutrition: Severe Is there a minimum of two crit: Yes CC Plasma Assessment Blood Product Administration S: [id number] SKY DASH RESIDENT Mar 27, 2025 16:35
--- NOTE | 2025-03-27 17:05 | DVHPN2 ---
Progress Note Date Seen: Mar 27, 2025 Resident Creating Document: RICHARD TOSCANO RESIDENT Has the PT tested + for MRSA If YES, has PT been informed?: No Medical Necessity Reason Pt with a Central, PICC or Fol: Yes The following are medically ne: Central Line, Barrios Catheter Subjective Review of Systems Patient extubated today, on oxygen via mask FiO2 35% Denies any nausea, vomiting, abdominal pain H&H stable Objective vital signs Vital Sign Date Time Temp Pulse Resp B/P (MAP) Pulse Ox O2 Delivery O2 Flow Rate FiO2 03/27/25 16:21 179/108 03/27/25 15:15 111 32 98 03/27/25 14:00 Simple Mask* 9 35 Cool Aerosol 35 03/27/25 12:00 98.0 98.0 Total Intake and Output 03/26/25 03/26/25 03/27/25 15:00 23:00 07:00 Intake Total 270.065 ml 85.725 ml 20 ml Output Total 450 ml 750 ml Balance 270.065 ml -364.275 ml -730 ml medications Current Medications Medications Dose Ordered Sig/Wally Route Start Time Stop Time Status Last Admin Dose Admin Ondansetron HCl 4 mg Q4HP PRN IV 03/12/25 00:00 Hydralazine HCl 10 mg Q6HP PRN IV 03/12/25 17:30 03/27/25 09:04 10 MG Lorazepam 1 mg Q8HP PRN IV 03/12/25 21:45 03/12/25 21:58 1 MG Midazolam HCl 100 ml @ 1 mls/hr Q24H IV 03/16/25 16:30 03/23/25 14:52 2 MLS/HR Diagnostic Test (Pha) 1 strip Q6HR 03/16/25 18:00 03/27/25 12:03 1 STRIP Insulin Human Regular FOLLOW SLIDING SCALE Q6HR SC 03/16/25 18:00 03/26/25 05:56 2 UNITS Dextrose 50 ml UD IV 03/16/25 17:15 Folic Acid 1 mg/ Dextrose 50.2 ml @ 200.8 mls/ hr DAILY INJ 03/17/25 10:00 03/27/25 09:43 200.8 MLS/HR Thiamine HCl 100 mg DAILY IV 03/18/25 10:00 03/27/25 09:35 100 MG Atorvastatin Calcium 40 mg HS PO 03/17/25 22:00 Hold Sucralfate 1 gm QID@0600,1130,1700,2200 GT 03/23/25 17:00 03/27/25 11:30 1 GM Pantoprazole Sodium 40 mg BID IV 03/26/25 22:00 03/27/25 09:32 40 MG Enteral Nutritional Formula 1,000 ml 30ML/HR GT 03/26/25 11:00 Labetalol HCl 10 mg Q2HPRN PRN IV 03/27/25 11:30 03/27/25 13:11 10 MG Nifedipine 60 mg DAILY PO 03/28/25 10:00 Losartan Potassium 25 mg DAILY PO 03/28/25 10:00 Examination Gen - mild conjunctival pallor, no scleral icterus Skin - Patients skin is warm and dry. HEENT - normocephalic, atraumatic, dry mucous membranes. Neck - supple, no lymphadenopathy Pulmonary - B/L equal air entry cardiovascular - regular S1,S2 heard GI - soft abdomen. Bowel sounds normoactive Neurological - Patient extubated, A&O x3 and is following commands laboratory and microbiology Laboratory Tests 03/27/25 03:02 Test 03/27/25 03:02 Range/Units Serum Glucose 78 74-106 mg/dL Microbiology Date/Time Source Procedure Growth Status 03/16/25 16:36 Nose MRSA Screen - Final Complete 03/16/25 16:06 Sputum Gram Stain - Final Complete 03/16/25 16:06 Respiratory Culture - Final Stenotrophomonas maltophilia Escherichia coli Presumptive Milady albicans Complete 03/13/25 11:53 Stool Stool Culture - Final Complete 03/13/25 11:53 Stool Shiga Toxin I & II - Final Complete 03/12/25 11:55 Urine - Barrios Port Urine Culture - Final Complete 03/11/25 15:36 Blood Blood Culture - Final NO GROWTH AFTER 5 DAYS OF INCUBATION. Complete Problem List/Assessment/Plan Problem List/Assessment/Plan Assessment Upper GI bleeding likely from persistent duodenal ulcer Duodenal ulcer disease History of perforated duodenal ulcer s/p surgical repair Hiatal hernia Severe grade C linear erosive esophagitis with esophageal ulcers C. difficile colitis Elevated liver enzymes Severe anemia New multiple stroke in different arterial territories (MRI 03/18/25) Multiple chronic strokes GIOVANI on CKD likely due to VMN, improving Transaminitis Pneumonia Plan Continue on Protonix drip Swallow evaluation to be done, if passes patient to be started on clear liquid diet Monitor H&H, transfuse if HGB less than 7 LFTs improving IV metronidazole and ceftriaxone Hold off on anticoagulation and antiplatelet drugs because of likely active GI bleed Plan discussed with Dr. Stoddard Plan discussed with: Patient, Other (RN Jossue) My Orders My Orders Orders - RICHARD TOSCANO RESIDENT Procedure Category Date Status Time * Swallow Request ST 03/27/25 Transmitted 11:00 Dietary Evaluation Review Recommendations by RD: Increase Calorie Intake, PPN/TPN Comments: Pt meets criteria 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 based on severe wt loss 35lb/24% in 5 month, intake <50% estimated requirement x 5 days, severe muscle wasting and fat depletion Nutrition Recommendation: 1) PPN/TPN if NPO continues 2) Advance to soft diet as medically feasible 3) Ensure Enlive 240ml TID if pt resumes PO diet 4) Monitor NPO status, lab values, weight trend, and I/O Expected Outcomes/Goals: Intake to meet >75% estimated needs GI symptoms to improve Fu 2-3 days Food and Nutrition Intake (Sev: <50% est energy req 5days Interpretation of weight loss: >10% in 6 months Body Fat Depletion (Severe): Mod to Severe Depletion Muscle Mass (Severe): Mod to Severe Depletion Protein Calorie Malnutrition: Severe Is there a minimum of two crit: Yes CC Plasma Assessment Blood Product Administration S: [id number] RICHARD TOSCANO RESIDENT Mar 27, 2025 17:05
--- NOTE | 2025-03-27 19:17 | DVHPN2 ---
Progress Note - Dictate Date Seen: Mar 27, 2025 Has the PT tested + for MRSA If YES, has PT been informed?: No Medical Necessity Reason Pt with a Central, PICC or Fol: Yes The following are medically ne: Central Line, Barrios Catheter Subjective Mr. Perez is a 49 years old right-handed gentleman with a history of hypertension, dyslipidemia, multiple strokes, DVT, he was brought to the [facility] on 03/11/2025 with a chief complaint of diarrhea, history is obtained from his , the chart review I saw him on 08/23/2023 for TIA, 10/27/2024 for encephalopathy I have seen and examined the patient, I have talked to his nurse, he is extubated, follows verbal commands, he follows, he is oriented to person, place, he knows year and the month He can not move the right arm than leg Stool occult blood, 03/13/2025: Positive UDS, 03/12/2025: Negative Plasma alcohol, 03/12/2025: <3 Urinalysis, 03/12/2025: WBC: One, urine leukocyte esterase: Negative ABG, 03/16/25: Hypoxia, respiratory acidosis WBC/Hb/PLT'/MCV, 03/16/25: 10.l 6/7.9/339/82.4 Na, 03/11/2025: 129, 03/12/2025: 130, 129, 03/15/25: 145, 03/16/25: 142 BUNs/CR, 08/22/2023: 15/1.45, 03/11/2025: 55/1.77, 03/13/2025: 43/1.58, 02/2725: 65/2.56 GFR, 08/22/2023: 59 TBI/AST/ALT/AP,: 0.8/269/450/398 TG/CHO L/LDL/HDL, 08/2023: 136/166/111/39 Vitamin B12, 03/12/25: 852 Folic acid, 03/12/2025: 12.28 TSH, 08/23/2023: 4.25 Ultrasound, 03/24/2025: Gallbladder entirely distended with sludge with gallbladder wall thickening and pericholecystic edema, concerning for cholecystitis. Recommend surgical consultation HIDA scan. Dilated common bile duct measuring 16 mm which can be further evaluated with MRCP. Echogenic liver which can be seen with hepatic steatosis, cirrhosis. Right pleural effusion Extremity venous study, right arm, 11/09/2024: Thrombus is seen in the cephalic vein in the forearm. DONAL, 08/23/2023: 1. No evidence of intracardiac source of embolus in the study conducted today. 2. Normal valves without significant masses or change vegetations were discernible. 3. No evidence of intra-atrial shunting by bubble study and color Doppler. 4. Mild atherosclerotic plaquing was visualized in the arch of the aorta without evidence of dissection in the visualized part EGD, 03/13/2025: 1. 1-2 cm sliding-type hiatal hernia with severe grade C linear erosive esophagitis with esophageal ulcers extending into the distal 15 cm of the esophagus 2. Patient had a persistent duodenal bulb ulcer seen just inside the pyloric opening which was large coalescing with a visible sutures; there was no active bleeding or visible vessel but there was acute on chronic inflammation 3. Patient had deformity of the postbulbar duodenal area and I was able to see the 2nd part of the duodenum but there was area of debris and ongoing chronic ulceration inflammation and the endoscope was not advanced beyond this area 3. Patient had mild gastritis and some old coffee-ground within the stomach Chest x-ray, 03/12/2025: Mild chronic appearing left basilar pulmonary airspace disease and possible small pleural effusion Chest x-ray, 03/13/2025: 1. Enteric tube terminates in the stomach. 2. Worsening bilateral interstitial and alveolar opacities. Chest x-ray, : Endotracheal tube and right IJ approach central venous catheters are in satisfactory position. Trace vveg-[id number]-right pleural effusions with right retro lower lung zone linear atelectasis/ fluid within the fissure. CT head, 10/24/2024: 1. No intracranial hemorrhage or mass effect. 2. [id number] chronic microvascular ischemic changes. 3. Old bilateral basal ganglia lacunar infarcts. 4. Small bilateral mastoid effusions. CT head, 03/17/2025: 1. New medial right parieto-occipital focal region of diminished parenchymal attenuation within the medial right parietal occipital lobes. This is concerning for an acute to subacute infarct. Recommend further evaluation with MRI. 2. No evidence of acute intracranial hemorrhage, mass effect or hydrocephalus. 3. Chronic sequelae of microangiopathy and atrophic cortical volume loss.4. Multifocal chronic lacunar infarcts as outlined above. CT abdomen/pelvis, 10/04/2024: 1. Extensive intra-abdominal free air concerning for perforated viscus. Surgical consultation is recommended. 2. Enteritis is seen in multiple loops of small bowel in the left hemiabdomen. 3. Moderate abdominopelvic ascites. 4. Small right pleural effusion. CTA neck, head, 08/22/2023:1. CTA head demonstrates no evidence of large vessel occlusion, aneurysm, or significant stenosis. 2. CTA neck demonstrates no evidence of carotid or vertebral dissection or significant stenosis. 3. No noncontrast CT head was performed. 4. Additional findings as detailed above MRI head, 08/23/2023: No acute infarct, intracranial hemorrhage, mass effect, or hydrocephalus. Moderate periventricular and deep subcortical white matter T2 hyperintensities which are nonspecific, but most likely related to sequela of chronic microvascular ischemic changes (I have reviewed the MRI films with our in-house radiologist, Dr. Black, the patient had bilateral multiple subacute/chronic infarcts) MRI head, 11/01/2024: No acute cerebrovascular ischemia. [id number] chronic microvascular ischemic changes. Bilateral mastoid effusions. Old bilateral basal ganglia / lopes radiata infarcts. MR head, 03/16/2025: Infarcts involving multiple vascular territories as described. vital signs Vital Sign Date Time Temp Pulse Resp B/P (MAP) Pulse Ox O2 Delivery O2 Flow Rate FiO2 03/27/25 18:15 117 33 129/74 (92) 93 03/27/25 18:00 Simple Mask* 9 35 Cool Aerosol 35 03/27/25 16:00 98.9 98.9 Total Intake and Output 03/26/25 03/26/25 03/27/25 15:00 23:00 07:00 Intake Total 270.065 ml 85.725 ml 20 ml Output Total 450 ml 750 ml Balance 270.065 ml -364.275 ml -730 ml medications Current Medications Medications Dose Ordered Sig/Wally Route Start Time Stop Time Status Last Admin Dose Admin Ondansetron HCl 4 mg Q4HP PRN IV 03/12/25 00:00 Hydralazine HCl 10 mg Q6HP PRN IV 03/12/25 17:30 03/27/25 09:04 10 MG Lorazepam 1 mg Q8HP PRN IV 03/12/25 21:45 03/12/25 21:58 1 MG Midazolam HCl 100 ml @ 1 mls/hr Q24H IV 03/16/25 16:30 03/23/25 14:52 2 MLS/HR Diagnostic Test (Pha) 1 strip Q6HR 03/16/25 18:00 03/27/25 17:33 1 STRIP Insulin Human Regular FOLLOW SLIDING SCALE Q6HR SC 03/16/25 18:00 03/26/25 05:56 2 UNITS Dextrose 50 ml UD IV 03/16/25 17:15 Folic Acid 1 mg/ Dextrose 50.2 ml @ 200.8 mls/ hr DAILY INJ 03/17/25 10:00 03/27/25 09:43 200.8 MLS/HR Thiamine HCl 100 mg DAILY IV 03/18/25 10:00 03/27/25 09:35 100 MG Atorvastatin Calcium 40 mg HS PO 03/17/25 22:00 Hold Sucralfate 1 gm QID@0600,1130,1700,2200 GT 03/23/25 17:00 03/27/25 17:33 1 GM Pantoprazole Sodium 40 mg BID IV 03/26/25 22:00 03/27/25 09:32 40 MG Enteral Nutritional Formula 1,000 ml 30ML/HR GT 03/26/25 11:00 Labetalol HCl 10 mg Q2HPRN PRN IV 03/27/25 11:30 03/27/25 13:11 10 MG Nifedipine 60 mg DAILY PO 03/28/25 10:00 Losartan Potassium 25 mg DAILY PO 03/28/25 10:00 objective The patient is well-nourished and well-developed with no distress. The patient is intubated MENTAL STATUS: Subjective CRANIAL NERVES: Pupils are equal, round and reactive. EOMs full and conjugate. Facial sensation intact in all three divisions bilaterally. Mandibular strength intact. Facial muscles symmetrical and strength intact. SENSATION: Okay to touch MOTOR: Normal tone in the upper and lower extremity. Normal muscle bulk. No fasciculations. Moves the left arm and leg REFLEXES: Deep tendon reflexes are symmetrical, 4/4 in the knees and ankles. No pathological reflexes. CEREBELLAR/COORDINATION: Deferred GAIT/STATION: deferred. laboratory and microbiology Laboratory Tests 03/27/25 03:02 Test 03/27/25 03:02 Range/Units Serum Glucose 78 74-106 mg/dL Problem List Altered mental status Metabolic encephalopathy secondary to sepsis, septic shock, hypernatremia Hypoxic encephalopathy Peptic ulcer, GI bleeding, anemia Respiratory failure New multiple strokes in different arterial territories (MRI 03/18/25) Multiple chronic strokes Maybe secondary to history methamphetamine, cocaine, alcohol use History of alcohol abuse History of cocaine, methamphetamine abuse Assessment/Plan Monitoring Supportive treatment ICU care Stabilize vitals Respiratory support Follow-up labs IV antibiotics Aspirin 81 mg daily later Lipitor later TPN Thiamine supplementation Folic acid supplementation GI service on case Nephrology service on case More recommended per clinical course This medical document was created using an electronic medical record system with [employer] dictation system. Although this document has been carefully reviewed, there may still be some phonetic and typographical errors. These areas are purely typographical due to imperfect Prognosis poor Dietary Evaluation Review Recommendations by RD: Increase Calorie Intake, PPN/TPN Comments: Pt meets criteria 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 based on severe wt loss 35lb/24% in 5 month, intake <50% estimated requirement x 5 days, severe muscle wasting and fat depletion Nutrition Recommendation: 1) PPN/TPN if NPO continues 2) Advance to soft diet as medically feasible 3) Ensure Enlive 240ml TID if pt resumes PO diet 4) Monitor NPO status, lab values, weight trend, and I/O Expected Outcomes/Goals: Intake to meet >75% estimated needs GI symptoms to improve Fu 2-3 days Food and Nutrition Intake (Sev: <50% est energy req 5days Interpretation of weight loss: >10% in 6 months Body Fat Depletion (Severe): Mod to Severe Depletion Muscle Mass (Severe): Mod to Severe Depletion Protein Calorie Malnutrition: Severe Is there a minimum of two crit: Yes Plan discussed with: Other CC Plasma Assessment Blood Product Administration S: [id number] LEANDRO BLACK MD Mar 27, 2025 19:17
[2025-03-27] MEDS: Vital High Protein 1liter Bottle GT SCH (21:37)
--- NOTE | 2025-03-27 23:49 | DVHPN2 ---
Subjective DOS: 03/27/2025 Patient seen and examined at bedside. S/p extubation, on supplemental oxygen Overnight events reviewed Changes from previous H/P or p: Changes Eyes: No Pain, No Vision change, No Conjunctivae inflammation, No Eyelid inflammation, No Other, No Redness ENT: No Ear pain, No Ear discharge, No Nose pain, No Nose discharge, No Nose congestion, No Mouth pain, No Mouth swelling, No Throat pain, No Throat swelling, No Other Cardiovascular: No Chest Pain, No Palpitations, No Orthopnea, No Paroxysmal Noc. Dyspnea, No Edema, No Lt Headedness, No Other Respiratory: No Cough, No Dry, No Shortness of breath, No SOB with excertion, No Wheezing, No Hemoptysis, No Pleuritic Pain, No Sputum, No Other Gastrointestinal: Melena Musculoskeletal: No other, No neck pain, No shoulder pain, No arm pain, No back pain, No hand pain, No leg pain, No foot pain Skin: No Rash, No Lesions, No Jaundice, No Bruising, No Other Objective Vitals Vital Signs Date Time Temp Pulse Resp B/P (MAP) Pulse Ox O2 Delivery O2 Flow Rate FiO2 03/27/25 23:16 115 34 154/91 (112) 98 03/27/25 22:00 Nasal Cannula* 3 32 03/27/25 20:00 98.1 98.1 Intake/Output Intake and Output 03/27/25 07:00 Intake Total 375.790 ml Output Total 1200 ml Balance -824.210 ml Intake Oral 20 ml IV Total 355.790 ml Output Urine Total 1200 ml Exam Gen.: Patient lying in bed in no apparent distress. On supplemental oxygen. Head: Normocephalic, atraumatic. Eyes: EOMI/PERRLA. Ears: Normal hearing. Normal anatomy. Neck/trachea: Trachea midline, supple. Nose: Normal external anatomy. Mouth: Moist mucous membranes. Chest: Decreased air entry bilaterally. No wheezing or rhonchi. Cardiovascular: Positive S1, positive S2. Regular rate and rhythm. Abdomen: Positive bowel sounds in all 4 quadrants. Soft, non-tender, non- distended. : Deferred. Rectal: Deferred. Skin: Warm, dry. Intact. Extremities: 2+ radial pulses bilaterally. No lower extremity edema. Neuro: Awake, alert, oriented x3. No gross motor or sensory deficits. Cranial nerves II through XII intact. Gait not assessed. Medications Current Medications Medications Dose Ordered Sig/Wally Route Start Time Stop Time Status Last Admin Dose Admin Ondansetron HCl 4 mg Q4HP PRN IV 03/12/25 00:00 Hydralazine HCl 10 mg Q6HP PRN IV 03/12/25 17:30 03/27/25 09:04 10 MG Lorazepam 1 mg Q8HP PRN IV 03/12/25 21:45 03/12/25 21:58 1 MG Midazolam HCl 100 ml @ 1 mls/hr Q24H IV 03/16/25 16:30 03/23/25 14:52 2 MLS/HR Diagnostic Test (Pha) 1 strip Q6HR 03/16/25 18:00 03/27/25 23:30 1 STRIP Insulin Human Regular FOLLOW SLIDING SCALE Q6HR SC 03/16/25 18:00 03/26/25 05:56 2 UNITS Dextrose 50 ml UD IV 03/16/25 17:15 Folic Acid 1 mg/ Dextrose 50.2 ml @ 200.8 mls/ hr DAILY INJ 03/17/25 10:00 03/27/25 09:43 200.8 MLS/HR Thiamine HCl 100 mg DAILY IV 03/18/25 10:00 03/27/25 09:35 100 MG Atorvastatin Calcium 40 mg HS PO 03/17/25 22:00 Hold Sucralfate 1 gm QID@0600,1130,1700,2200 GT 03/23/25 17:00 03/27/25 21:25 1 GM Pantoprazole Sodium 40 mg BID IV 03/26/25 22:00 03/27/25 21:25 40 MG Enteral Nutritional Formula 1,000 ml 30ML/HR GT 03/26/25 11:00 03/27/25 21:37 1,000 ML Labetalol HCl 10 mg Q2HPRN PRN IV 03/27/25 11:30 03/27/25 13:11 10 MG Nifedipine 60 mg DAILY PO 03/28/25 10:00 Losartan Potassium 25 mg DAILY PO 03/28/25 10:00 Laboratory Results Laboratory Tests 03/27/25 03:02 Chemistry Test 03/27/25 03:02 Albumin 2.7 g/dL (3.2-4.8) L Calcium Level 8.1 mg/dL (8.7-10.4) L Magnesium Level 2.0 mg/dL (1.6-2.6) Total Protein 6.2 g/dL (5.7-8.2) LFT Test 03/27/25 03:02 Alanine Aminotransferase (ALT) 74 U/L (7-40) H Alkaline Phosphatase 393 U/L (46-116) H Aspartate Amino Transferase (AST) 41 U/L (13-40) H Total Bilirubin 0.4 mg/dL (0.2-1.0) Urinalysis Test 03/12/25 05:00 03/12/25 10:20 03/17/25 06:30 Urine Color Light-yellow (Yellow) Urine Clarity Clear (Clear) Urine pH 5.5 (5.0-9.0) Urine Specific [place] 1.013 (1.001-1.035) Urine Protein Trace (Negative) H Urine Ketones Trace (Negative) Urine Blood Negative /uL (Negative) Urine Nitrite Negative (Negative) Urine Bilirubin Negative (Negative) Urine Urobilinogen Normal mg/dL (Negative) Urine Leukocyte Esterase Negative /uL (Negative) Urine RBC <1 /hpf (0 - 3) Urine Microscopic WBC < 1 /HPF (0-3) Urine Squamous Epithelial Cells None seen /hpf (<5) Urine Bacteria None seen /hpf (None Seen) Urine Glucose Normal mg/dL (Normal) Urine Protein/Creatinine Ratio 2.26 Urine Total Protein 23.6 mg/dL (1-14) H Urine Creatinine 56.14 mg/dL (30.0-125.0) Urine Sodium 13 mmol/L (40-220) L Blood Gas Results Test 03/27/25 08:19 03/27/25 09:31 Arterial Blood pH 7.518 (7.350-7.450) 7.497 (7.350-7.450) FiO2 % 30.0 30.0 Microbiology Microbiology Date/Time Source Procedure Growth Status 03/16/25 16:36 Nose MRSA Screen - Final Complete 03/16/25 16:06 Sputum Gram Stain - Final Complete 03/16/25 16:06 Respiratory Culture - Final Stenotrophomonas maltophilia Escherichia coli Presumptive Milady albicans Complete 03/13/25 11:53 Stool Stool Culture - Final Complete 03/13/25 11:53 Stool Shiga Toxin I & II - Final Complete 03/12/25 11:55 Urine - Barrios Port Urine Culture - Final Complete 03/11/25 15:36 Blood Blood Culture - Final NO GROWTH AFTER 5 DAYS OF INCUBATION. Complete Assessment/Plan Assessment/Plan Impression: Acute hypoxic respiratory failure On mechanical ventilator, s/p extubation Acute metabolic encephalopathy Multiple strokes Chronic diastolic heart failure with preserved EF GI hemorrhage Anemia GIOVANI on CKD Events: Patient tolerated CPAP this AM and was extubated uneventfully at 11:30 AM. Currently on supplemental oxygen Taper O2 as tolerated. Continue on Protonix drip Swallow evaluation to be done, if passes patient to be started on clear liquid diet Monitor H&H Transfuse if Hgb less than 7.0 g/dL LFTs improving GI recommendations appreciated. Hold off on anticoagulation and antiplatelet drugs because of likely active GI bleed Continue antibiotics Tube feeds for nutritional support Labs and imaging reviewed. Rest of plan as noted below. Plan: S/p extubation On supplemental oxygen Titrate to keep O2 sats above 92%. Continue antibiotics. Follow up cultures. Pressors as necessary for hemodynamic support Titrate to keep mean arterial pressure greater than 65 mmHg. Monitor hemoglobin Transfuse if less than 7.0 g/dL. NGT to LIS Protonix drip F/u GI and Surgery recs Accu-Cheks, ISS PRN Monitor renal function Monitor electrolytes. Supplement as necessary. Monitor ins and outs. Maintain euvolemia. TPN for nutritional support Counseled against vaping and marijuana use. GI prophylaxis. DVT prophylaxis. Prognosis: Poor given patient's multiple co-morbidities. Condition: Critical Rest of plan per hospitalist and other consultants. A total of 35 minutes of critical care time was spent reviewing the patient record, examining the patient, making a diagnostic and therapeutic plan, discussing this plan with the medical personnel, following up on diagnostic studies and following the patient for clinical stability excluding any and all procedures. At least 50% of this time was spent in direct, [id number] contact. Thank you, Dr. Khoury, for allowing me to participate in this patient's care. Further recommendations will depend on the patient's clinical course. Please do not hesitate to contact me if you have any questions or concerns. This medical document was created using an electronic medical record system with [employer] dictation system. Although these documentations are being carefully reviewed, there may still be some phonetic and typographical changes. The errors are purely typographical, due to imperfection on the software program, and do not reflect any compromise in the patient's medical care. Plan discussed with: Patient, Other (RN Jossue) Visit Coding Pulmonary Billing Provider: ARIE LOPEZ MD Date of Service if different f: Mar 27, 2025 Common Visit Codes: 55071-[id number] INP/OBS CARE(HIGH), 79186-[id number] CARE 30-74 MIN ARIE LOPEZ MD Mar 27, 2025 23:49
[2025-03-28] VITALS (95 sets, daily range): BP systolic 146–209; BP diastolic 86–126; PULSE 83–117; RESP 23–45; TEMP 97.7–98.9; O2SAT 89–100
[2025-03-28 04:45] LABS: Hematocrit 26.9 % (41.0-53.0); Hemoglobin 9.0 g/dL (13.5-17.5); Mean Corpuscular Hemoglobin 27.5 pg (28.0-32.0); Mean Corpuscular Volume 82.3 fL (80.0-100.0); Nucleated Red Blood Cells % 0.1 %
[2025-03-28 04:47] LABS: Anion Gap 12 (5-15); BUN/Creatinine Ratio 28.3 (10.0-20.0); Bilirubin, Total 0.6 mg/dL (0.2-1.0); Carbon Dioxide 26 mmol/L (20-31); Chloride 103 mmol/L (98-107); Glucose 83 mg/dL (74-106); Potassium 3.8 mmol/L (3.5-5.1); Sodium 141 mmol/L (136-145); Total Protein 6.0 g/dL (5.7-8.2)
[2025-03-28 05:02] LABS: Alanine Aminotransferase 110 U/L (7-40); Albumin 2.6 g/dL (3.2-4.8); Alkaline Phosphatase 752 U/L (46-116); Blood Urea Nitrogen 32 mg/dL (9-23); Calcium 7.9 mg/dL (8.7-10.4)
[2025-03-28] MEDS: LOSARTAN POTASSIUM 25 MG TAB PO SCH (09:50)
[2025-03-28] MEDS ORDERED: LOSARTAN POTASSIUM 25 MG TAB PO SCH ×2 (10:00)
--- NOTE | 2025-03-28 10:27 | DVH ---
EXAM DESCRIPTION: Chest 1 View CLINICAL HISTORY: s/p extubation COMPARISON: XY CHEST PORTABLE on DOS: 03/27/25, XY CHEST PORTABLE on DOS: 03/26/25, XY CHEST PORTABLE on DOS: 03/25/25, XY CHEST PORTABLE on DOS: 03/24/25, XY CHEST PORTABLE on DOS: 03/23/25 FINDINGS and IMPRESSION: Lines, tubes, and support devices: The enteric tube terminates in the stomach. Right internal jugular central venous catheter terminates near the cavoatrial junction. Lungs / Pleura: No consolidation. No pleural effusion. No pneumothorax. Mediastinum: Normal cardiomediastinal silhouette. Osseous structures / Soft tissues: No acute findings.
--- NOTE | 2025-03-28 10:35 | DVHPN2 ---
Progress Note Date Seen: Mar 28, 2025 Has the PT tested + for MRSA If YES, has PT been informed?: No Medical Necessity Reason Pt with a Central, PICC or Fol: Yes The following are medically ne: Central Line, Barrios Catheter Subjective Review of Systems: RESPIRATORY:Abnormal Other Systems: Patient seen and examined by myself today in follow-up, patient remained intubated on ventilator Objective vital signs Vital Sign Date Time Temp Pulse Resp B/P (MAP) Pulse Ox O2 Delivery O2 Flow Rate FiO2 03/28/25 09:51 185/122 03/28/25 06:45 95 32 98 03/28/25 05:55 Nasal Cannula* 3 N/A Cool Aerosol 03/28/25 04:00 98.4 98.4 Total Intake and Output 03/27/25 03/27/25 03/28/25 15:00 23:00 07:00 Intake Total 50.2 ml 100 ml 171 ml Output Total 625 ml 1600 ml Balance 50.2 ml -525 ml -1429 ml medications Current Medications Medications Dose Ordered Sig/Wally Route Start Time Stop Time Status Last Admin Dose Admin Ondansetron HCl 4 mg Q4HP PRN IV 03/12/25 00:00 Lorazepam 1 mg Q8HP PRN IV 03/12/25 21:45 03/12/25 21:58 1 MG Midazolam HCl 100 ml @ 1 mls/hr Q24H IV 03/16/25 16:30 03/23/25 14:52 2 MLS/HR Diagnostic Test (Pha) 1 strip Q6HR 03/16/25 18:00 03/28/25 05:11 1 STRIP Insulin Human Regular FOLLOW SLIDING SCALE Q6HR SC 03/16/25 18:00 03/26/25 05:56 2 UNITS Dextrose 50 ml UD IV 03/16/25 17:15 Folic Acid 1 mg/ Dextrose 50.2 ml @ 200.8 mls/ hr DAILY INJ 03/17/25 10:00 03/28/25 10:17 200.8 MLS/HR Thiamine HCl 100 mg DAILY IV 03/18/25 10:00 03/28/25 09:48 100 MG Atorvastatin Calcium 40 mg HS PO 03/17/25 22:00 Hold Sucralfate 1 gm QID@0600,1130,1700,2200 GT 03/23/25 17:00 03/28/25 05:11 1 GM Pantoprazole Sodium 40 mg BID IV 03/26/25 22:00 03/28/25 09:47 40 MG Enteral Nutritional Formula 1,000 ml 30ML/HR GT 03/26/25 11:00 03/27/25 21:37 1,000 ML Labetalol HCl 10 mg Q2HPRN PRN IV 03/27/25 11:30 03/28/25 05:11 10 MG Losartan Potassium 100 mg DAILY PO 03/28/25 09:15 03/28/25 09:50 100 MG Amlodipine Besylate 10 mg DAILY PO 03/28/25 10:00 03/28/25 09:51 10 MG Examination: LUNGS:Normal, CVS:Normal, MSK:Normal laboratory and microbiology Laboratory Tests 03/28/25 04:00 Test 03/28/25 04:00 Range/Units Serum Glucose 83 74-106 mg/dL Microbiology Date/Time Source Procedure Growth Status 03/16/25 16:36 Nose MRSA Screen - Final Complete 03/16/25 16:06 Sputum Gram Stain - Final Complete 03/16/25 16:06 Respiratory Culture - Final Stenotrophomonas maltophilia Escherichia coli Presumptive Milady albicans Complete 03/13/25 11:53 Stool Stool Culture - Final Complete 03/13/25 11:53 Stool Shiga Toxin I & II - Final Complete 03/12/25 11:55 Urine - Barrios Port Urine Culture - Final Complete 03/11/25 15:36 Blood Blood Culture - Final NO GROWTH AFTER 5 DAYS OF INCUBATION. Complete Problem List/Assessment/Plan Problem List/Assessment/Plan 49 years old male with past medical history of CVA, dyslipidemia, hypertension, left knee surgery, Chronic kidney disease, history of severe Acute kidney injury needed inpatient dialysis previous admission here and then renal recovery presented with chief complaints of diarrhea for the past 5 to 6 days, he also has history of perforated duodenal ulcer status post exploratory laparotomy previous admission, cholecystitis, status post tracheostomy Patient presented to emergency room with hemoglobin of 4.2,s/p 3 U prbc,, s/p egd noted findings. Assessment: Acute kidney injury superimposed Chronic Kidney Disease secondary hemodynamic mediated Acute respiratory failure, patient intubated on ventilator Hypernatremia secondary to dehydration Duodenal ulcer leading to GI bleeding and severe anemia, status post 3 PRBC transfusion History of CVA Recurrent CVA Hypertension C diff diarrhea Severe protein malnutrition/cachexia Hypokalemia Hypophosphatemia Plan/recommendation: * Kidney function continues to improve * Increased urine output * Na level normalized appropriately * K-Phos IV piggyback * Replete potassium * Avoid nephrotoxic medication * Strict I&Os * We will follow up with the patient Plan discussed with: Other (Nurse) Dietary Evaluation Review Recommendations by RD: Increase Calorie Intake, PPN/TPN Comments: Pt meets criteria 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 based on severe wt loss 35lb/24% in 5 month, intake <50% estimated requirement x 5 days, severe muscle wasting and fat depletion Nutrition Recommendation: 1) PPN/TPN if NPO continues 2) Advance to soft diet as medically feasible 3) Ensure Enlive 240ml TID if pt resumes PO diet 4) Monitor NPO status, lab values, weight trend, and I/O Expected Outcomes/Goals: Intake to meet >75% estimated needs GI symptoms to improve Fu 2-3 days Food and Nutrition Intake (Sev: <50% est energy req 5days Interpretation of weight loss: >10% in 6 months Body Fat Depletion (Severe): Mod to Severe Depletion Muscle Mass (Severe): Mod to Severe Depletion Protein Calorie Malnutrition: Severe Is there a minimum of two crit: Yes CC Plasma Assessment Blood Product Administration S: [id number] MILADY ANDERSON MD Mar 28, 2025 10:35
--- NOTE | 2025-03-28 11:53 | DVHPN2 ---
Progress Note Date Seen: Mar 28, 2025 Resident Creating Document: RICHARD TOSCANO RESIDENT Has the PT tested + for MRSA If YES, has PT been informed?: No Medical Necessity Reason Pt with a Central, PICC or Fol: Yes The following are medically ne: Central Line, Barrios Catheter Subjective Review of Systems Patient extubated yesterday H&H stable Tolerating tube feedings well Poor cough reflex, continue with the tube feedings and swallow evaluation later Objective vital signs Vital Sign Date Time Temp Pulse Resp B/P (MAP) Pulse Ox O2 Delivery O2 Flow Rate FiO2 03/28/25 10:53 98.4 110 32 196/117 93 4.0 36 98.4 03/28/25 08:00 Nasal Cannula* Total Intake and Output 03/27/25 03/27/25 03/28/25 15:00 23:00 07:00 Intake Total 50.2 ml 100 ml 171 ml Output Total 625 ml 1600 ml Balance 50.2 ml -525 ml -1429 ml medications Current Medications Medications Dose Ordered Sig/Wally Route Start Time Stop Time Status Last Admin Dose Admin Ondansetron HCl 4 mg Q4HP PRN IV 03/12/25 00:00 Lorazepam 1 mg Q8HP PRN IV 03/12/25 21:45 03/12/25 21:58 1 MG Midazolam HCl 100 ml @ 1 mls/hr Q24H IV 03/16/25 16:30 03/23/25 14:52 2 MLS/HR Diagnostic Test (Pha) 1 strip Q6HR 03/16/25 18:00 03/28/25 05:11 1 STRIP Insulin Human Regular FOLLOW SLIDING SCALE Q6HR SC 03/16/25 18:00 03/26/25 05:56 2 UNITS Dextrose 50 ml UD IV 03/16/25 17:15 Folic Acid 1 mg/ Dextrose 50.2 ml @ 200.8 mls/ hr DAILY INJ 03/17/25 10:00 03/28/25 10:17 200.8 MLS/HR Thiamine HCl 100 mg DAILY IV 03/18/25 10:00 03/28/25 09:48 100 MG Atorvastatin Calcium 40 mg HS PO 03/17/25 22:00 Hold Sucralfate 1 gm QID@0600,1130,1700,2200 GT 03/23/25 17:00 03/28/25 05:11 1 GM Pantoprazole Sodium 40 mg BID IV 03/26/25 22:00 03/28/25 09:47 40 MG Enteral Nutritional Formula 1,000 ml 30ML/HR GT 03/26/25 11:00 03/27/25 21:37 1,000 ML Labetalol HCl 10 mg Q2HPRN PRN IV 03/27/25 11:30 03/28/25 05:11 10 MG Losartan Potassium 100 mg DAILY PO 03/28/25 09:15 03/28/25 09:50 100 MG Amlodipine Besylate 10 mg DAILY PO 03/28/25 10:00 03/28/25 09:51 10 MG Ipratropium [place] 0.5 mg Q6HR NEB 03/28/25 12:00 Levalbuterol HCl 0.625 mg Q6HR NEB 03/28/25 12:00 UNV Hydralazine HCl 50 mg Q8HR PO 03/28/25 14:00 UNV Examination Gen - mild conjunctival pallor, no scleral icterus Skin - Patients skin is warm and dry. HEENT - normocephalic, atraumatic, dry mucous membranes. Neck - supple, no lymphadenopathy Pulmonary - B/L equal air entry cardiovascular - regular S1,S2 heard GI - soft abdomen. Bowel sounds normoactive Neurological - Patient extubated, A&O x3 and is following commands laboratory and microbiology Laboratory Tests 03/28/25 04:00 Test 03/28/25 04:00 Range/Units Serum Glucose 83 74-106 mg/dL Microbiology Date/Time Source Procedure Growth Status 03/16/25 16:36 Nose MRSA Screen - Final Complete 03/16/25 16:06 Sputum Gram Stain - Final Complete 03/16/25 16:06 Respiratory Culture - Final Stenotrophomonas maltophilia Escherichia coli Presumptive Milady albicans Complete 03/13/25 11:53 Stool Stool Culture - Final Complete 03/13/25 11:53 Stool Shiga Toxin I & II - Final Complete 03/12/25 11:55 Urine - Barrios [place] Urine Culture - Final Complete 03/11/25 15:36 Blood Blood Culture - Final NO GROWTH AFTER 5 DAYS OF INCUBATION. Complete Problem List/Assessment/Plan Problem List/Assessment/Plan Assessment Upper GI bleeding likely from persistent duodenal ulcer Duodenal ulcer disease History of perforated duodenal ulcer s/p surgical repair Hiatal hernia Severe grade C linear erosive esophagitis with esophageal ulcers C. difficile colitis Elevated liver enzymes Severe anemia New multiple stroke in different arterial territories (MRI 03/18/25) Multiple chronic strokes GIOVANI on CKD likely due to VMN, improving Transaminitis Pneumonia Plan Continue on Protonix drip Continue on tube feedings, swallow evaluation to be done Monitor H&H, transfuse if HGB less than 7 LFTs improving IV metronidazole and ceftriaxone Hold off on anticoagulation and antiplatelet drugs because of likely active GI bleed Plan discussed with Dr. Stoddard Plan discussed with: Patient, Other (JASPER Bartlett) Dietary Evaluation Review Recommendations by RD: Increase Calorie Intake, PPN/TPN Comments: Pt meets criteria 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 based on severe wt loss 35lb/24% in 5 month, intake <50% estimated requirement x 5 days, severe muscle wasting and fat depletion Nutrition Recommendation: 1) PPN/TPN if NPO continues 2) Advance to soft diet as medically feasible 3) Ensure Enlive 240ml TID if pt resumes PO diet 4) Monitor NPO status, lab values, weight trend, and I/O Expected Outcomes/Goals: Intake to meet >75% estimated needs GI symptoms to improve Fu 2-3 days Food and Nutrition Intake (Sev: <50% est energy req 5days Interpretation of weight loss: >10% in 6 months Body Fat Depletion (Severe): Mod to Severe Depletion Muscle Mass (Severe): Mod to Severe Depletion Protein Calorie Malnutrition: Severe Is there a minimum of two crit: Yes CC Plasma Assessment Blood Product Administration S: [id number] RICHARD TOSCANO RESIDENT Mar 28, 2025 11:53
[2025-03-28] MEDS: LEVALBUTEROL HCL 1.25 MG/3 ML NEB NEB SCH (12:00)
[2025-03-28] MEDS: IPRATROPIUM BROM 0.5 MG/2.5ML INH SOL NEB SCH (12:05)
--- NOTE | 2025-03-28 13:01 | DVHPNRES ---
Progress Note Date Seen: Mar 28, 2025 Resident Creating Document: SKY DASH RESIDENT Has the PT tested + for MRSA If YES, has PT been informed?: No Medical Necessity Reason Pt with a Central, PICC or Fol: Yes The following are medically ne: Central Line, Barrios Catheter Subjective Review of Systems Jossue Perez he is a 49-year-old male past medical history of hypertension, hyperlipidemia, DVT, 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 The patient mentions he had passage of stool 7 times yesterday which was tarry black in color. Patient mentions he also had abdominal pain, nausea and a few episodes of vomiting for the last 2 days. He denies any fever,weakness or weight loss. He reports history of perforated duodenal ulcer s/p exp lap with prolonged ICU stay complicated with sepsis from cholecystitis s/p tracheostomy and removal. On arrival to the hospital, his hemoglobin was 4.2 and he had to be transfused with 2 units of PRBCs. He was kept NPO and NG tube placed. GI was consulted and they recommended continuing with IV Protonix drip scheduled patient for EGD on 03/13/2025. Patient was seen and examined on the bedside. Status post extubation and on 3 L oxygen with nasal canula. The patient is anxious, tachycardic, tachypneic, BP 180/116. Started IV Ativan 0.5 mg q.4 PRN for anxiety, pending swallow evaluation. The patient is on NG tube, not able to crush nifedipine, started clonidine 0.1 mg p.o. b.i.d., losartan 100 mg p.o. daily and IV labetalol 5 mg q.2h p.r.n. for hypertension. Objective vital signs Vital Sign Date Time Temp Pulse Resp B/P (MAP) Pulse Ox O2 Delivery O2 Flow Rate FiO2 03/28/25 12:11 85 32 99 03/28/25 12:05 Nasal Cannula 4.0 03/28/25 12:05 36 03/28/25 11:57 195/105 03/28/25 10:53 98.4 98.4 Total Intake and Output 03/27/25 03/27/25 03/28/25 15:00 23:00 07:00 Intake Total 50.2 ml 100 ml 171 ml Output Total 625 ml 1600 ml Balance 50.2 ml -525 ml -1429 ml medications Current Medications Medications Dose Ordered Sig/Wally Route Start Time Stop Time Status Last Admin Dose Admin Ondansetron HCl 4 mg Q4HP PRN IV 03/12/25 00:00 Lorazepam 1 mg Q8HP PRN IV 03/12/25 21:45 03/28/25 11:56 1 MG Midazolam HCl 100 ml @ 1 mls/hr Q24H IV 03/16/25 16:30 03/23/25 14:52 2 MLS/HR Diagnostic Test (Pha) 1 strip Q6HR 03/16/25 18:00 03/28/25 05:11 1 STRIP Insulin Human Regular FOLLOW SLIDING SCALE Q6HR SC 03/16/25 18:00 03/26/25 05:56 2 UNITS Dextrose 50 ml UD IV 03/16/25 17:15 Folic Acid 1 mg/ Dextrose 50.2 ml @ 200.8 mls/ hr DAILY INJ 03/17/25 10:00 03/28/25 10:17 200.8 MLS/HR Thiamine HCl 100 mg DAILY IV 03/18/25 10:00 03/28/25 09:48 100 MG Atorvastatin Calcium 40 mg HS PO 03/17/25 22:00 Hold Sucralfate 1 gm QID@0600,1130,1700,2200 GT 03/23/25 17:00 03/28/25 05:11 1 GM Pantoprazole Sodium 40 mg BID IV 03/26/25 22:00 03/28/25 09:47 40 MG Enteral Nutritional Formula 1,000 ml 30ML/HR GT 03/26/25 11:00 03/27/25 21:37 1,000 ML Labetalol HCl 10 mg Q2HPRN PRN IV 03/27/25 11:30 03/28/25 11:57 10 MG Losartan Potassium 100 mg DAILY PO 03/28/25 09:15 03/28/25 09:50 100 MG Amlodipine Besylate 10 mg DAILY PO 03/28/25 10:00 03/28/25 09:51 10 MG Ipratropium [place] 0.5 mg Q6HR NEB 03/28/25 12:00 03/28/25 12:05 0.5 MG Levalbuterol HCl 0.625 mg Q6HR NEB 03/28/25 12:00 Clonidine HCl 0.1 mg BID PO 03/28/25 22:00 UNV Examination Physical examination: General Appearance: Alert, Oriented X3, anxious, on nasal canula 3L HEENT: Atraumatic, PERRLA, EOMI, Mucous membrane moist/pink Respiratory: Clear to auscultation, Normal air movement Cardiovascular: Regular rate, Normal S1, Normal S2, No murmurs, no chest wall tenderness Abdominal: Normal bowel sounds, Soft, No tenderness, No hepatospenomegaly, No masses Extremities: No clubbing, No cyanosis, No edema, Normal pulses, No tenderness/swelling Skin: No rashes, No breakdown, No significant lesion Neuro: Normal speech, right-sided weakness, Strength at 5/5 X2 ext, Normal tone, Sensation intact, grossly intact cranial nerves Psych/Mental Status: could not be assessed laboratory and microbiology Laboratory Tests 03/28/25 04:00 Test 03/28/25 04:00 Range/Units Serum Glucose 83 74-106 mg/dL Microbiology Date/Time Source Procedure Growth Status 03/16/25 16:36 Nose MRSA Screen - Final Complete 03/16/25 16:06 Sputum Gram Stain - Final Complete 03/16/25 16:06 Respiratory Culture - Final Stenotrophomonas maltophilia Escherichia coli Presumptive Milady albicans Complete 03/13/25 11:53 Stool Stool Culture - Final Complete 03/13/25 11:53 Stool Shiga Toxin I & II - Final Complete 03/12/25 11:55 Urine - [place]rios [place] Urine Culture - Final Complete 03/11/25 15:36 Blood Blood Culture - Final NO GROWTH AFTER 5 DAYS OF INCUBATION. Complete Labs and/or images reviewed: Labs reviewed by me, Image(s) reviewed by me Problem List/Assessment/Plan Problem List/Assessment/Plan Assessment and plan : NEURO: Acute metabolic encephalopathy secondary to acute ischemic stroke Acute or subacute ischemic stroke Hypertensive emergency Acute anxiety RASS score: - 1 - CT head without contrast demonstrated new medial right parieto-occipital focal region of diminished parenchymal attenuation within the medial right parietal occipital lobes. This is concerning for an acute to subacute infarct with chronic multifocal lacunar infarct - MRI showed Infarcts involving multiple vascular territories involved medial right occipital lobe, posterior left occipital lobe, and left lopes radiata white matter tracts. Few additional tiny foci of diffusion restriction at the anterior right parietal cortex. - Neurology on board - hold aspirin and Plavix for now because of GI bleeding - atorvastatin 40 mg p.o. daily - Clonidine 0.1 mg p.o. b.i.d., losartan 100 mg daily and IV labetalol 5 mg q.2h PRN - IV Ativan 0.5 mg q.4 PRN CARDIOVASCULAR: Chronic diastolic heart failure with preserved ejection fraction - Echo on 11/12 demonstrated EF 65%, MILD LVH AND MILD LV DIASTOLIC DYSFUNCTION - elevated BNP - CxR showed Bilateral interstitial opacities, small left basilar consolidation and pleural effusion PULMONARY: Acute hypoxic respiratory failure S/P extubation GASTROINTESTINAL: Acute GI bleed upper vs lower Partial small Intestinal obstruction likely secondary to fecal impaction. Cholelithiasis C diff positive Transaminitis likely secondary to low hepatic perfusion Elevated alkaline phosphatase -CT abdomen/pelvis showed low-grade distal partial obstruction due to fecal retention. - Gastrograffin study showed Contrast is identified within the colon by 3 hours. No evidence of bowel obstruction. -EGD on 03/13/25 showed 1-2 cm sliding-type hiatal hernia with severe grade C linear erosive esophagitis with esophageal ulcers extending into the distal 15 cm of the esophagus persistent duodenal bulb ulcer seen just inside the pyloric opening which was large coalescing with a visible sutures; there was no active bleeding or visible vessel but there was acute on chronic inflammation deformity of the postbulbar duodenal area and but there was area of debris and ongoing chronic ulceration inflammation and the endoscope was not advanced beyond this area mild gastritis and some old coffee-ground within the stomach - GB U/S demonstrated gallbladder wall thickening and pericholecystic edema, concerning for cholecystitis and dilated CBD up to 16 mm. - Pending MRCP scan - NPO - Tube feeding at 30 mL/hours - IV Protonix 40 mg bid - Carafate suspension 1 g q.i.d. - Zofran 4 mg IV q.4 PRN - GI and surgery are on the board - Monitor Hand H, transfuse if hemoglobin less than 7 GENITOURINARY: GIOVANI on CKD likely hemodynamically mediated/VMN resolved - Monitor BMP METABOLIC: Hypernatremia Hypokalemia Hypophosphatemia - monitor BMP HEME: Severe microcytic hypochromic anemia due to GI bleeding Iron deficiency due to above Bilateral superficial thrombophlebitis - Patient received 4 units of PRBC - Monitor H&H INFECTIOUS DISEASE: Acute C diff infection - hold po vanc because of upper GI bleeding Nicotine dependence - Nicotine dependence 21 g/24 hours DIET: TPN, Tube feeding DVT prophylax: SCD GI prophylaxis: Protonix Bowel regimen: Code status: Full code LINES/DRAINS/ACCESS: Extubated on 03/27/25 IV access: Right IJ placed on 03/16/2025 Drips: tube feeding Barrios catheter: DISPOSITION: ICU Patient's status discussed with RN, Critical care time spent more than 72 minutes, including patient care, chart review, and updating the family. Excluding any procedures. Case discussed with Dr. Garcia Plan discussed with: Spouse, Other (RN) My Orders My Orders Orders - SKY DASH RESIDENT Procedure Category Date Status Time Chest Portable XY 03/28/25 Resulted 07:19 Losartan Tablet PHA 03/28/25 In Process (Cozaar Tablet) 09:15 Amlodipine Tablet PHA 03/28/25 In Process (Norvasc Tablet) 10:00 Pt Request For Service PT 03/28/25 Logged 09:12 Levalbuterol Hcl PHA 03/28/25 In Process (Xopenex Medneb) 12:00 Clonidine Hcl Tablet PHA 03/28/25 Logged (Catapres Tablet) 13:00 Clonidine Hcl Tablet PHA 03/28/25 Logged (Catapres Tablet) 22:00 Dietary Evaluation Review Recommendations by RD: Increase Calorie Intake, PPN/TPN Comments: Pt meets criteria 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 based on severe wt loss 35lb/24% in 5 month, intake <50% estimated requirement x 5 days, severe muscle wasting and fat depletion Nutrition Recommendation: 1) PPN/TPN if NPO continues 2) Advance to soft diet as medically feasible 3) Ensure Enlive 240ml TID if pt resumes PO diet 4) Monitor NPO status, lab values, weight trend, and I/O Expected Outcomes/Goals: Intake to meet >75% estimated needs GI symptoms to improve Fu 2-3 days Food and Nutrition Intake (Sev: <50% est energy req 5days Interpretation of weight loss: >10% in 6 months Body Fat Depletion (Severe): Mod to Severe Depletion Muscle Mass (Severe): Mod to Severe Depletion Protein Calorie Malnutrition: Severe Is there a minimum of two crit: Yes CC Plasma Assessment Blood Product Administration S: 2037 Date of Service: Mar 28, 2025 Billing Provider: DIANA GARCIA MD Common Visit Codes: [id number] INP/OBS CARE([facility] [place]) SKY DASH RESIDENT Mar 28, 2025 13:01 DIANA GARCIA MD Mar 29, 2025 09:31
[2025-03-28] MEDS ORDERED: LORazepam 2MG/ML-1ML VIAL IV PRN (14:00)
[2025-03-28] MEDS: LORazepam 2MG/ML-1ML VIAL IV PRN ×2 (16:47→22:17)
[2025-03-28] MEDS: NICOTINE 21MG/24 HR TOPICAL PATCH TD ONE (17:18)
--- NOTE | 2025-03-28 17:21 | DVH ---
CLINICAL HISTORY: R/O CHOLEDOCHOLITHIASIS TECHNIQUE: MRI and MRCP of the abdomen was performed without gadolinium. 3D reconstructed images were created under concurrent radiologist supervision and archived on the PACS system. WID: COMPARISON: US GALLBLADDER on DOS: 03/24/25 FINDINGS: Lower Thorax: Shifting of the mediastinal contents to the left. There is mild cardiomegaly. Small bilateral pleural effusions and dependent consolidations of the bilateral lower lungs, greater on the left. Liver and Biliary system: Normal-sized liver. No definite hepatic lesion. There is mild dilatation of the common bile duct measuring up to 1 cm on series 2, image 14. There is multiple predominantly dependent choledocholithiasis in the mid and lower portion of the common bile duct. There is a mildly distended gallbladder containing sludge and cholelithiasis. No definite gallbladder wall thickening. Spleen: Unremarkable. Adrenal Glands and Kidneys: Unremarkable. Pancreas and Retroperitoneum: Unremarkable. Aorta and Major Vessels: Abdominal aorta and visualized iliac vessels are normal caliber. Bowel, Mesentery and Peritoneal space: Normal caliber bowel loops. No fluid collection. Abdominal wall and Osseous Structures: Mild thoracic and lumbar spondylosis. IMPRESSION: 1. Choledocholithiasis in the mid to distal common bile duct predominantly dependently. 2. Mild dilatation of the common bile duct. Correlate with LFTs as the choledocholithiasis could be causing obstruction. 3. Mild dilatation of the gallbladder without definite wall thickening containing cholelithiasis and sludge. 4. Mild cardiomegaly and small bilateral pleural effusions. 5. Dependent consolidation in the bilateral lower lobes, greater on the left, likely atelectasis though a component of pneumonia could contribute to this appearance. This is not optimally evaluated by MRI.
[2025-03-28 20:00] LABS: Base Excess 2.3 mmol/L (-2.0-3.0)
--- NOTE | 2025-03-28 21:14 | DVHPN2 ---
Subjective DOS: 03/28/2025 Patient seen and examined at bedside. Remains on supplemental oxygen Overnight events reviewed Changes from previous H/P or p: No Changes Eyes: No Pain, No Vision change, No Conjunctivae inflammation, No Eyelid inflammation, No Other, No Redness ENT: No Ear pain, No Ear discharge, No Nose pain, No Nose discharge, No Nose congestion, No Mouth pain, No Mouth swelling, No Throat pain, No Throat swelling, No Other Cardiovascular: No Chest Pain, No Palpitations, No Orthopnea, No Paroxysmal Noc. Dyspnea, No Edema, No Lt Headedness, No Other Respiratory: No Cough, No Dry, No Shortness of breath, No SOB with excertion, No Wheezing, No Hemoptysis, No Pleuritic Pain, No Sputum, No Other Gastrointestinal: Melena Musculoskeletal: No other, No neck pain, No shoulder pain, No arm pain, No back pain, No hand pain, No leg pain, No foot pain Skin: No Rash, No Lesions, No Jaundice, No Bruising, No Other Objective Vitals Vital Signs Date Time Temp Pulse Resp B/P (MAP) Pulse Ox O2 Delivery O2 Flow Rate FiO2 03/28/25 20:47 111 196/121 03/28/25 18:45 42 96 03/28/25 18:40 Facial BiPAP Mask 50 03/28/25 17:43 3 03/28/25 17:00 98.5 98.5 Intake/Output Intake and Output 03/28/25 07:00 Intake Total 321.2 ml Output Total 2225 ml Balance -1903.8 ml Intake Oral 160 ml IV Total 50.2 ml Tube Feeding 111 ml Output Urine Total 2225 ml # Bowel Movements 1 Exam Gen.: Patient lying in bed in no apparent distress. On supplemental oxygen. Head: Normocephalic, atraumatic. Eyes: EOMI/PERRLA. Ears: Normal hearing. Normal anatomy. Neck/trachea: Trachea midline, supple. Nose: Normal external anatomy. Mouth: Moist mucous membranes. Chest: Decreased air entry bilaterally. No wheezing or rhonchi. Cardiovascular: Positive S1, positive S2. Regular rate and rhythm. Abdomen: Positive bowel sounds in all 4 quadrants. Soft, non-tender, non- distended. : Deferred. Rectal: Deferred. Skin: Warm, dry. Intact. Extremities: 2+ radial pulses bilaterally. No lower extremity edema. Neuro: Awake, alert, oriented x3. No gross motor or sensory deficits. Cranial nerves II through XII intact. Gait not assessed. Medications Current Medications Medications Dose Ordered Sig/Wally Route Start Time Stop Time Status Last Admin Dose Admin Ondansetron HCl 4 mg Q4HP PRN IV 03/12/25 00:00 Midazolam HCl 100 ml @ 1 mls/hr Q24H IV 03/16/25 16:30 03/23/25 14:52 2 MLS/HR Diagnostic Test (Pha) 1 strip Q6HR 03/16/25 18:00 03/28/25 18:43 1 STRIP Insulin Human Regular FOLLOW SLIDING SCALE Q6HR SC 03/16/25 18:00 03/26/25 05:56 2 UNITS Dextrose 50 ml UD IV 03/16/25 17:15 Folic Acid 1 mg/ Dextrose 50.2 ml @ 200.8 mls/ hr DAILY INJ 03/17/25 10:00 03/28/25 10:17 200.8 MLS/HR Thiamine HCl 100 mg DAILY IV 03/18/25 10:00 03/28/25 09:48 100 MG Atorvastatin Calcium 40 mg HS PO 03/17/25 22:00 Hold Sucralfate 1 gm QID@0600,1130,1700,2200 GT 03/23/25 17:00 03/28/25 17:06 1 GM Pantoprazole Sodium 40 mg BID IV 03/26/25 22:00 03/28/25 09:47 40 MG Enteral Nutritional Formula 1,000 ml 30ML/HR GT 03/26/25 11:00 03/27/25 21:37 1,000 ML Labetalol HCl 10 mg Q2HPRN PRN IV 03/27/25 11:30 03/28/25 20:47 10 MG Losartan Potassium 100 mg DAILY PO 03/28/25 09:15 03/28/25 09:50 100 MG Ipratropium [place] 0.5 mg Q6HR NEB 03/28/25 12:00 03/28/25 18:16 0.5 MG Levalbuterol HCl 0.625 mg Q6HR NEB 03/28/25 12:00 03/28/25 18:16 0.625 MG Clonidine HCl 0.1 mg BID PO 03/28/25 22:00 Nicotine 1 patch DAILY TD 03/29/25 10:00 Lorazepam 0.5 mg [id number] PRN IV 03/28/25 19:30 Laboratory Results Laboratory Tests 03/28/25 04:00 Chemistry Test 03/28/25 04:00 Albumin 2.6 g/dL (3.2-4.8) L Calcium Level 7.9 mg/dL (8.7-10.4) L Total Protein 6.0 g/dL (5.7-8.2) LFT Test 03/28/25 04:00 Alanine Aminotransferase (ALT) 110 U/L (7-40) H Alkaline Phosphatase 752 U/L (46-116) H Aspartate Amino Transferase (AST) 152 U/L (13-40) H Total Bilirubin 0.6 mg/dL (0.2-1.0) Urinalysis Test 03/12/25 05:00 03/12/25 10:20 03/17/25 06:30 Urine Color Light-yellow (Yellow) Urine Clarity Clear (Clear) Urine pH 5.5 (5.0-9.0) Urine Specific [place] 1.013 (1.001-1.035) Urine Protein Trace (Negative) H Urine Ketones Trace (Negative) Urine Blood Negative /uL (Negative) Urine Nitrite Negative (Negative) Urine Bilirubin Negative (Negative) Urine Urobilinogen Normal mg/dL (Negative) Urine Leukocyte Esterase Negative /uL (Negative) Urine RBC <1 /hpf (0 - 3) Urine Microscopic WBC < 1 /HPF (0-3) Urine Squamous Epithelial Cells None seen /hpf (<5) Urine Bacteria None seen /hpf (None Seen) Urine Glucose Normal mg/dL (Normal) Urine Protein/Creatinine Ratio 2.26 Urine Total Protein 23.6 mg/dL (1-14) H Urine Creatinine 56.14 mg/dL (30.0-125.0) Urine Sodium 13 mmol/L (40-220) L Blood Gas Results Test 03/28/25 19:49 Arterial Blood pH 7.509 (7.350-7.450) FiO2 % 50.0 Microbiology Microbiology Date/Time Source Procedure Growth Status 03/16/25 16:36 Nose MRSA Screen - Final Complete 03/16/25 16:06 Sputum Gram Stain - Final Complete 03/16/25 16:06 Respiratory Culture - Final Stenotrophomonas maltophilia Escherichia coli Presumptive Milady albicans Complete 03/13/25 11:53 Stool Stool Culture - Final Complete 03/13/25 11:53 Stool Shiga Toxin I & II - Final Complete 03/12/25 11:55 Urine - [place] Urine Culture - Final Complete 03/11/25 15:36 Blood Blood Culture - Final NO GROWTH AFTER 5 DAYS OF INCUBATION. Complete Assessment/Plan Assessment/Plan Impression: Acute hypoxic respiratory failure Dependence on supplemental oxygen Acute metabolic encephalopathy Multiple strokes Chronic diastolic heart failure with preserved EF GI hemorrhage Anemia GIOVANI on CKD Events: Patient remains on supplemental oxygen On 4 LPM NC Taper O2 as tolerated. Increased secretions - start ipratropium 0.5 mg q.6 hours Continue on Protonix drip Poor cough reflex, continue with the tube feedings and swallow evaluation later Monitor H&H - stable. Transfuse if Hgb less than 7.0 g/dL LFTs improving GI recommendations appreciated. Hold off on anticoagulation and antiplatelet drugs because of likely active GI bleed Continue antibiotics Incentive spirometry Patient is hypertensive - given Cozaar and amlodipine. Monitor BP Pain control Avoid oversedation Tube feeds for nutritional support Patient is stable for downgrade from the pulmonary standpoint. Labs and imaging reviewed. Rest of plan as noted below. Plan: S/p extubation on 03/27/25 On supplemental oxygen Titrate to keep O2 sats above 92%. Continue antibiotics. Follow up cultures. Pressors as necessary for hemodynamic support Titrate to keep mean arterial pressure greater than 65 mmHg. Monitor hemoglobin Transfuse if less than 7.0 g/dL. NGT to LIS Protonix drip F/u GI and Surgery recs Accu-Cheks, ISS PRN Monitor renal function Monitor electrolytes. Supplement as necessary. Monitor ins and outs. Maintain euvolemia. TPN for nutritional support Counseled against vaping and marijuana use. GI prophylaxis. DVT prophylaxis. Prognosis: Poor given patient's multiple co-morbidities. Condition: Critical Rest of plan per hospitalist and other consultants. A total of 35 minutes of critical care time was spent reviewing the patient record, examining the patient, making a diagnostic and therapeutic plan, discussing this plan with the medical personnel, following up on diagnostic studies and following the patient for clinical stability excluding any and all procedures. At least 50% of this time was spent in direct, [id number] contact. Thank you, Dr. Khoury, for allowing me to participate in this patient's care. Further recommendations will depend on the patient's clinical course. Please do not hesitate to contact me if you have any questions or concerns. This medical document was created using an electronic medical record system with [employer] dictation system. Although these documentations are being carefully reviewed, there may still be some phonetic and typographical changes. The errors are purely typographical, due to imperfection on the software program, and do not reflect any compromise in the patient's medical care. Plan discussed with: Patient, Other (RN Tri) My Orders Orders - ARIE LOPEZ MD Procedure Category Date Status Time Ipratropium Medneb PHA 03/28/25 In Process (Atrovent Medneb) 12:00 Visit Coding Pulmonary Billing Provider: ARIE LOPEZ MD Date of Service if different f: Mar 28, 2025 Common Visit Codes: 33816-ERYLBYOBIT INP/OBS CARE(HIGH), 28390-[id number] CARE 30-74 MIN ARIE LOPEZ MD Mar 28, 2025 21:14
--- NOTE | 2025-03-28 21:17 | DVHPN2 ---
Progress Note - Dictate Date Seen: Mar 28, 2025 Has the PT tested + for MRSA If YES, has PT been informed?: No Medical Necessity Reason Pt with a Central, PICC or Fol: Yes The following are medically ne: Central Line, Barrios Catheter Subjective Mr. Perez is a 49 years old right-handed gentleman with a history of hypertension, dyslipidemia, multiple strokes, DVT, he was brought to the [facility] [place] on 03/11/2025 with a chief complaint of diarrhea, history is obtained from his , the chart review I saw him on 08/23/2023 for TIA, 10/27/2024 for encephalopathy I have seen and examined the patient, I have talked to his nurse, he is on BiPAP, follows verbal commands, RN: he is oriented x4 He can not move the right arm than leg Stool occult blood, 03/13/2025: Positive UDS, 03/12/2025: Negative Plasma alcohol, 03/12/2025: <3 Urinalysis, 03/12/2025: WBC: One, urine leukocyte esterase: Negative ABG, 03/16/25: Hypoxia, respiratory acidosis WBC/Hb/PLT'/MCV, 03/16/25: 10.l 6/7.9/339/82.4 Na, 03/11/2025: 129, 03/12/2025: 130, 129, 03/15/25: 145, 03/16/25: 142 BUNs/CR, 08/22/2023: 15/1.45, 03/11/2025: 55/1.77, 03/13/2025: 43/1.58, 02/2725: 65/2.56 GFR, 08/22/2023: 59 TBI/AST/ALT/AP,: 0.8/269/450/398 TG/CHO L/LDL/HDL, 08/2023: 136/166/111/39 Vitamin B12, 03/12/25: 852 Folic acid, 03/12/2025: 12.28 TSH, 08/23/2023: 4.25 Ultrasound, 03/24/2025: Gallbladder entirely distended with sludge with gallbladder wall thickening and pericholecystic edema, concerning for cholecystitis. Recommend surgical consultation HIDA scan. Dilated common bile duct measuring 16 mm which can be further evaluated with MRCP. Echogenic liver which can be seen with hepatic steatosis, cirrhosis. Right pleural effusion Extremity venous study, right arm, 11/09/2024: Thrombus is seen in the cephalic vein in the forearm. DONAL, 08/23/2023: 1. No evidence of intracardiac source of embolus in the study conducted today. 2. Normal valves without significant masses or change vegetations were discernible. 3. No evidence of intra-atrial shunting by bubble study and color Doppler. 4. Mild atherosclerotic plaquing was visualized in the arch of the aorta without evidence of dissection in the visualized part EGD, 03/13/2025: 1. 1-2 cm sliding-type hiatal hernia with severe grade C linear erosive esophagitis with esophageal ulcers extending into the distal 15 cm of the esophagus 2. Patient had a persistent duodenal bulb ulcer seen just inside the pyloric opening which was large coalescing with a visible sutures; there was no active bleeding or visible vessel but there was acute on chronic inflammation 3. Patient had deformity of the postbulbar duodenal area and I was able to see the 2nd part of the duodenum but there was area of debris and ongoing chronic ulceration inflammation and the endoscope was not advanced beyond this area 3. Patient had mild gastritis and some old coffee-ground within the stomach Chest x-ray, 03/12/2025: Mild chronic appearing left basilar pulmonary airspace disease and possible small pleural effusion Chest x-ray, 03/13/2025: 1. Enteric tube terminates in the stomach. 2. Worsening bilateral interstitial and alveolar opacities. Chest x-ray, : Endotracheal tube and right IJ approach central venous catheters are in satisfactory position. Trace dldd-culomgk-lbkg-right pleural effusions with right retro lower lung zone linear atelectasis/ fluid within the fissure. CT head, 10/24/2024: 1. No intracranial hemorrhage or mass effect. 2. Osuj-qn-efenwurh chronic microvascular ischemic changes. 3. Old bilateral basal ganglia lacunar infarcts. 4. Small bilateral mastoid effusions. CT head, 03/17/2025: 1. New medial right parieto-occipital focal region of diminished parenchymal attenuation within the medial right parietal occipital lobes. This is concerning for an acute to subacute infarct. Recommend further evaluation with MRI. 2. No evidence of acute intracranial hemorrhage, mass effect or hydrocephalus. 3. Chronic sequelae of microangiopathy and atrophic cortical volume loss.4. Multifocal chronic lacunar infarcts as outlined above. CT abdomen/pelvis, 10/04/2024: 1. Extensive intra-abdominal free air concerning for perforated viscus. Surgical consultation is recommended. 2. Enteritis is seen in multiple loops of small bowel in the left hemiabdomen. 3. Moderate abdominopelvic ascites. 4. Small right pleural effusion. CTA neck, head, 08/22/2023:1. CTA head demonstrates no evidence of large vessel occlusion, aneurysm, or significant stenosis. 2. CTA neck demonstrates no evidence of carotid or vertebral dissection or significant stenosis. 3. No noncontrast CT head was performed. 4. Additional findings as detailed above MRI head, 08/23/2023: No acute infarct, intracranial hemorrhage, mass effect, or hydrocephalus. Moderate periventricular and deep subcortical white matter T2 hyperintensities which are nonspecific, but most likely related to sequela of chronic microvascular ischemic changes (I have reviewed the MRI films with our in-house radiologist, Dr. Black, the patient had bilateral multiple subacute/chronic infarcts) MRI head, 11/01/2024: No acute cerebrovascular ischemia. Xubx-xv-mnwnsned chronic microvascular ischemic changes. Bilateral mastoid effusions. Old bilateral basal ganglia / lopes radiata infarcts. MR head, 03/16/2025: Infarcts involving multiple vascular territories as described. vital signs Vital Sign Date Time Temp Pulse Resp B/P (MAP) Pulse Ox O2 Delivery O2 Flow Rate FiO2 03/28/25 20:47 111 196/121 03/28/25 18:45 42 96 03/28/25 18:40 Facial BiPAP Mask 50 03/28/25 17:43 3 03/28/25 17:00 98.5 98.5 Total Intake and Output 03/27/25 03/27/25 03/28/25 15:00 23:00 07:00 Intake Total 50.2 ml 100 ml 171 ml Output Total 625 ml 1600 ml Balance 50.2 ml -525 ml -1429 ml medications Current Medications Medications Dose Ordered Sig/Wally Route Start Time Stop Time Status Last Admin Dose Admin Ondansetron HCl 4 mg Q4HP PRN IV 03/12/25 00:00 Midazolam HCl 100 ml @ 1 mls/hr Q24H IV 03/16/25 16:30 03/23/25 14:52 2 MLS/HR Diagnostic Test (Pha) 1 strip Q6HR 03/16/25 18:00 03/28/25 18:43 1 STRIP Insulin Human Regular FOLLOW SLIDING SCALE Q6HR SC 03/16/25 18:00 03/26/25 05:56 2 UNITS Dextrose 50 ml UD IV 03/16/25 17:15 Folic Acid 1 mg/ Dextrose 50.2 ml @ 200.8 mls/ hr DAILY INJ 03/17/25 10:00 03/28/25 10:17 200.8 MLS/HR Thiamine HCl 100 mg DAILY IV 03/18/25 10:00 03/28/25 09:48 100 MG Atorvastatin Calcium 40 mg HS PO 03/17/25 22:00 Hold Sucralfate 1 gm QID@0600,1130,1700,2200 GT 03/23/25 17:00 03/28/25 17:06 1 GM Pantoprazole Sodium 40 mg BID IV 03/26/25 22:00 03/28/25 09:47 40 MG Enteral Nutritional Formula 1,000 ml 30ML/HR GT 03/26/25 11:00 03/27/25 21:37 1,000 ML Labetalol HCl 10 mg Q2HPRN PRN IV 03/27/25 11:30 03/28/25 20:47 10 MG Losartan Potassium 100 mg DAILY PO 03/28/25 09:15 03/28/25 09:50 100 MG Ipratropium [place] 0.5 mg Q6HR NEB 03/28/25 12:00 03/28/25 18:16 0.5 MG Levalbuterol HCl 0.625 mg Q6HR NEB 03/28/25 12:00 03/28/25 18:16 0.625 MG Clonidine HCl 0.1 mg BID PO 03/28/25 22:00 Nicotine 1 patch DAILY TD 03/29/25 10:00 Lorazepam 0.5 mg [id number] PRN IV 03/28/25 19:30 objective The patient is well-nourished and well-developed with no distress. MENTAL STATUS: Subjective CRANIAL NERVES: Pupils are equal, round and reactive. EOMs full and conjugate. Facial sensation intact in all three divisions bilaterally. Mandibular strength intact. Facial muscles symmetrical and strength intact. SENSATION: Okay to touch MOTOR: Normal tone in the upper and lower extremity. Normal muscle bulk. No fasciculations. Moves the left arm and leg REFLEXES: Deep tendon reflexes are symmetrical, 4/4 in the knees and ankles. No pathological reflexes. CEREBELLAR/COORDINATION: Deferred GAIT/STATION: deferred. laboratory and microbiology Laboratory Tests 03/28/25 04:00 Test 03/28/25 04:00 Range/Units Serum Glucose 83 74-106 mg/dL Problem List Altered mental status Metabolic encephalopathy secondary to sepsis, septic shock, hypernatremia Hypoxic encephalopathy Peptic ulcer, GI bleeding, anemia Respiratory failure New multiple strokes in different arterial territories (MRI 03/18/25) Multiple chronic strokes Maybe secondary to history methamphetamine, cocaine, alcohol use History of alcohol abuse History of cocaine, methamphetamine abuse Assessment/Plan Monitoring Supportive treatment ICU care Stabilize vitals Respiratory support Follow-up labs IV antibiotics Aspirin 81 mg daily later Lipitor later TPN Thiamine supplementation Folic acid supplementation GI service on case Nephrology service on case More recommended per clinical course This medical document was created using an electronic medical record system with [employer] dictation system. Although this document has been carefully reviewed, there may still be some phonetic and typographical errors. These areas are purely typographical due to imperfect Prognosis poor Dietary Evaluation Review Recommendations by RD: Increase Calorie Intake, PPN/TPN Comments: Pt meets criteria 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 based on severe wt loss 35lb/24% in 5 month, intake <50% estimated requirement x 5 days, severe muscle wasting and fat depletion Nutrition Recommendation: 1) PPN/TPN if NPO continues 2) Advance to soft diet as medically feasible 3) Ensure Enlive 240ml TID if pt resumes PO diet 4) Monitor NPO status, lab values, weight trend, and I/O Expected Outcomes/Goals: Intake to meet >75% estimated needs GI symptoms to improve Fu 2-3 days Food and Nutrition Intake (Sev: <50% est energy req 5days Interpretation of weight loss: >10% in 6 months Body Fat Depletion (Severe): Mod to Severe Depletion Muscle Mass (Severe): Mod to Severe Depletion Protein Calorie Malnutrition: Severe Is there a minimum of two crit: Yes Plan discussed with: Other CC Plasma Assessment Blood Product Administration S: [id number] LEANDRO BLACK MD Mar 28, 2025 21:17
--- NOTE | 2025-03-28 23:36 | DVH ---
CHEST RADIOGRAPH Indication: increased wob Technique: Single frontal view of the chest was obtained COMPARISON: XY CHEST PORTABLE on DOS: 03/28/25, XY CHEST PORTABLE on DOS: 03/27/25, XY CHEST PORTABLE on DOS: 03/26/25, XY CHEST PORTABLE on DOS: 03/25/25, XY CHEST PORTABLE on DOS: 03/24/25 FINDINGS: Mild atelectasis/consolidation of the left lung base with small left-sided pleural effusion. Cardiac silhouette and freedom are within normal limits. Bones and soft tissues demonstrate no significant abnormality. IMPRESSION: Small left-sided pleural effusion with mild left basilar atelectasis /consolidation.
[2025-03-29] VITALS (78 sets, daily range): BP systolic 128–174; BP diastolic 81–115; PULSE 77–120; RESP 22–45; TEMP 98.3–99.4; O2SAT 68–100
[2025-03-29 01:11] LABS: Base Excess 2.2 mmol/L (-2.0-3.0)
[2025-03-29] MEDS: LORazepam 2MG/ML-1ML VIAL ONE (02:49)
[2025-03-29] MEDS: FUROSEMIDE 40 MG/4 ML VIAL IV ONE (03:17)
[2025-03-29 03:59] LABS: Hematocrit 29.5 % (41.0-53.0); Hemoglobin 9.7 g/dL (13.5-17.5); Mean Corpuscular Hemoglobin 27.2 pg (28.0-32.0); Mean Corpuscular Volume 82.5 fL (80.0-100.0); Nucleated Red Blood Cells % 0.1 %
[2025-03-29 04:19] LABS: Anion Gap 11 (5-15); BUN/Creatinine Ratio 24.0 (10.0-20.0); Carbon Dioxide 28 mmol/L (20-31); Chloride 104 mmol/L (98-107); Sodium 143 mmol/L (136-145); Total Protein 6.7 g/dL (5.7-8.2)
[2025-03-29 04:20] LABS: Bilirubin, Total 0.5 mg/dL (0.2-1.0)
[2025-03-29] MEDS: DEXMEDETOMIDINE HCL IN D5W 100 ML IV SCH (04:30)
[2025-03-29 04:36] LABS: Alkaline Phosphatase 562 U/L (46-116); Blood Urea Nitrogen 29 mg/dL (9-23); Glucose 110 mg/dL (74-106); Potassium 3.3 mmol/L (3.5-5.1)
[2025-03-29 04:37] LABS: Alanine Aminotransferase 78 U/L (7-40); Albumin 2.9 g/dL (3.2-4.8); Calcium 8.3 mg/dL (8.7-10.4)
[2025-03-29] MEDS: LORazepam 2MG/ML-1ML VIAL IV ONE (05:37)
--- NOTE | 2025-03-29 05:58 | DVH ---
EXAM: XY CHEST XRAY 1 VIEW HISTORY: increased work of breathing on bipap COMPARISON: XY CHEST XRAY 1 VIEW on DOS: 03/28/25, XY CHEST PORTABLE on DOS: 03/28/25, XY CHEST PORTABLE on DOS: 03/27/25, XY CHEST PORTABLE on DOS: 03/26/25, XY CHEST PORTABLE on DOS: 03/25/25 TECHNIQUE: Portable AP view of the chest was performed. FINDINGS: There is a right IJ central line with its tip in the SVC-RA junction. NG tube tip is in the stomach about 13 cm distal to the GE junction. There is left basilar infiltrate and effusion, slightly improved since the previous chest x- ray. The right lung is clear. No pneumothorax. The heart is not enlarged. IMPRESSION: 1. Improved left basilar infiltrate and effusion. 2. The right lung is clear.
[2025-03-29] MEDS: POTASSIUM CHL 20MEQ/100ML 100 ML IV SCH (06:46)
[2025-03-29] MEDS: NICOTINE 21MG/24 HR TOPICAL PATCH TD SCH (09:55)
--- NOTE | 2025-03-29 10:16 | DVHPN2 ---
Progress Note Date Seen: Mar 29, 2025 Has the PT tested + for MRSA If YES, has PT been informed?: No Medical Necessity Reason Pt with a Central, PICC or Fol: Yes The following are medically ne: Central Line, Barrios Catheter Subjective Patient reports: No new complaints Other Systems: Patient seen and examined by myself today in follow-up Objective vital signs Vital Sign Date Time Temp Pulse Resp B/P (MAP) Pulse Ox O2 Delivery O2 Flow Rate FiO2 03/29/25 09:55 150/104 03/29/25 09:12 106 98 Facial BiPAP Mask 40 03/29/25 07:30 38 03/29/25 04:00 99.4 99.4 03/28/25 18:16 4 Total Intake and Output 03/28/25 03/28/25 03/29/25 15:00 23:00 07:00 Intake Total 50.2 ml 128 ml 306 ml Output Total 500 ml 1775 ml Balance 50.2 ml -372 ml -1469 ml medications Current Medications Medications Dose Ordered Sig/Wally Route Start Time Stop Time Status Last Admin Dose Admin Ondansetron HCl 4 mg Q4HP PRN IV 03/12/25 00:00 Midazolam HCl 100 ml @ 1 mls/hr Q24H IV 03/16/25 16:30 03/23/25 14:52 2 MLS/HR Diagnostic Test (Pha) 1 strip Q6HR 03/16/25 18:00 03/29/25 05:48 1 STRIP Insulin Human Regular FOLLOW SLIDING SCALE Q6HR SC 03/16/25 18:00 03/29/25 05:48 2 UNITS Dextrose 50 ml UD IV 03/16/25 17:15 Folic Acid 1 mg/ Dextrose 50.2 ml @ 200.8 mls/ hr DAILY INJ 03/17/25 10:00 03/28/25 10:17 200.8 MLS/HR Thiamine HCl 100 mg DAILY IV 03/18/25 10:00 03/29/25 09:56 100 MG Atorvastatin Calcium 40 mg HS PO 03/17/25 22:00 Hold Sucralfate 1 gm QID@0600,1130,1700,2200 GT 03/23/25 17:00 03/29/25 05:37 1 GM Pantoprazole Sodium 40 mg BID IV 03/26/25 22:00 03/29/25 09:56 40 MG Enteral Nutritional Formula 1,000 ml 30ML/HR GT 03/26/25 11:00 03/27/25 21:37 1,000 ML Labetalol HCl 10 mg Q2HPRN PRN IV 03/27/25 11:30 03/29/25 05:37 10 MG Losartan Potassium 100 mg DAILY PO 03/28/25 09:15 03/28/25 09:50 100 MG Ipratropium Perkins 0.5 mg Q6HR NEB 03/28/25 12:00 03/29/25 05:49 0.5 MG Levalbuterol HCl 0.625 mg Q6HR NEB 03/28/25 12:00 03/29/25 05:49 0.625 MG Clonidine HCl 0.1 mg BID PO 03/28/25 22:00 03/29/25 09:55 0.1 MG Nicotine 1 patch DAILY TD 03/29/25 10:00 03/29/25 09:55 1 PATCH Lorazepam 0.5 mg [id number] PRN IV 03/28/25 19:30 03/28/25 22:17 0.5 MG Potassium Chloride 100 ml @ 50 mls/hr Q2H IV 03/29/25 06:30 03/29/25 10:29 03/29/25 08:27 50 MLS/HR Examination: LUNGS:Normal, CVS:Normal, MSK:Normal laboratory and microbiology Laboratory Tests 03/29/25 03:15 Test 03/29/25 03:15 Range/Units Serum Glucose 110 H 74-106 mg/dL Microbiology Date/Time Source Procedure Growth Status 03/16/25 16:36 Nose MRSA Screen - Final Complete 03/16/25 16:06 Sputum Gram Stain - Final Complete 03/16/25 16:06 Respiratory Culture - Final Stenotrophomonas maltophilia Escherichia coli Presumptive Milady albicans Complete 03/13/25 11:53 Stool Stool Culture - Final Complete 03/13/25 11:53 Stool Shiga Toxin I & II - Final Complete 03/12/25 11:55 Urine - Barrios Port Urine Culture - Final Complete 03/11/25 15:36 Blood Blood Culture - Final NO GROWTH AFTER 5 DAYS OF INCUBATION. Complete Problem List/Assessment/Plan Problem List/Assessment/Plan 49 years old male with past medical history of CVA, dyslipidemia, hypertension, left knee surgery, Chronic kidney disease, history of severe Acute kidney injury needed inpatient dialysis previous admission here and then renal recovery presented with chief complaints of diarrhea for the past 5 to 6 days, he also has history of perforated duodenal ulcer status post exploratory laparotomy previous admission, cholecystitis, status post tracheostomy Patient presented to emergency room with hemoglobin of 4.2,s/p 3 U prbc,, s/p egd noted findings. Assessment: Acute kidney injury superimposed Chronic Kidney Disease secondary hemodynamic mediated Acute respiratory failure, extubated Hypernatremia secondary to dehydration Duodenal ulcer leading to GI bleeding and severe anemia, status post 3 PRBC transfusion History of CVA Recurrent CVA Hypertension C diff diarrhea Severe protein malnutrition/cachexia Hypokalemia Hypophosphatemia Plan/recommendation: * Kidney function continues to improve * Increased urine output * Na level normalized appropriately * K-Phos IV piggyback * Replete potassium * Avoid nephrotoxic medication * Strict I&Os I will sign off this case please reconsult as needed Thank you for the consult Plan discussed with: Patient Dietary Evaluation Review Recommendations by RD: Increase Calorie Intake, PPN/TPN Comments: Pt meets criteria 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 based on severe wt loss 35lb/24% in 5 month, intake <50% estimated requirement x 5 days, severe muscle wasting and fat depletion Nutrition Recommendation: 1) PPN/TPN if NPO continues 2) Advance to soft diet as medically feasible 3) Ensure Enlive 240ml TID if pt resumes PO diet 4) Monitor NPO status, lab values, weight trend, and I/O Expected Outcomes/Goals: Intake to meet >75% estimated needs GI symptoms to improve Fu 2-3 days Food and Nutrition Intake (Sev: <50% est energy req 5days Interpretation of weight loss: >10% in 6 months Body Fat Depletion (Severe): Mod to Severe Depletion Muscle Mass (Severe): Mod to Severe Depletion Protein Calorie Malnutrition: Severe Is there a minimum of two crit: Yes CC Plasma Assessment Blood Product Administration S: [id number] MILADY ANDERSON MD Mar 29, 2025 10:16
--- NOTE | 2025-03-29 10:40 | DVHPNRES ---
Progress Note Date Seen: Mar 29, 2025 Resident Creating Document: SILAS STAHL RESIDENT Has the PT tested + for MRSA If YES, has PT been informed?: No Medical Necessity Reason Pt with a Central, PICC or Fol: Yes The following are medically ne: Central Line, Barrios Catheter Subjective Review of Systems Patient seen and examined at bedside. Patient is currently on BiPAP with an IPAP of 16, EPAP seven, FiO2 40%. Patient is having slight tachypnea with sinus tachycardia likely related to anxiety. Blood pressure has been in the higher side that has been relatively well controlled with clonidine 0.1 mg b.i.d., labetalol 10 mg q.2 hours PRN. We are still pending for swallow evaluation to be able to start oral medications as well. MRCP was performed yesterday showing evidence of choledocholithiasis, there is mild dilation of the common bile duct. we will continue monitoring respiratory rate and stabalize patient first. GI is on board which recommended continue EN at 30cc hr while out of BIPAP. ROS Constitutional: Denies weight loss, fever and chills. HEENT: Denies changes in vision and hearing. Respiratory: Denies shortness of breath and cough Cardiovascular: Denies chest discomfort or palpitations GI: Denies abdominal pain, nausea, vomiting and diarrhea. : Denies dysuria and urinary frequency. Musculoskeletal: Denies myalgias and joint pain Skin: Denies rash and pruritus. Neurological: Denies dizziness, headache, vision or hearing problems Objective vital signs Vital Sign Date Time Temp Pulse Resp B/P (MAP) Pulse Ox O2 Delivery O2 Flow Rate FiO2 03/29/25 09:55 150/104 03/29/25 09:12 106 98 Facial BiPAP Mask 40 03/29/25 07:30 38 03/29/25 04:00 99.4 99.4 03/28/25 18:16 4 Total Intake and Output 03/28/25 03/28/25 03/29/25 14:59 22:59 06:59 Intake Total 50.2 ml 128 ml 306 ml Output Total 500 ml 1775 ml Balance 50.2 ml -372 ml -1469 ml medications Current Medications Medications Dose Ordered Sig/Wally Route Start Time Stop Time Status Last Admin Dose Admin Ondansetron HCl 4 mg Q4HP PRN IV 03/12/25 00:00 Midazolam HCl 100 ml @ 1 mls/hr Q24H IV 03/16/25 16:30 03/23/25 14:52 2 MLS/HR Diagnostic Test (Pha) 1 strip Q6HR 03/16/25 18:00 03/29/25 05:48 1 STRIP Insulin Human Regular FOLLOW SLIDING SCALE Q6HR SC 03/16/25 18:00 03/29/25 05:48 2 UNITS Dextrose 50 ml UD IV 03/16/25 17:15 Folic Acid 1 mg/ Dextrose 50.2 ml @ 200.8 mls/ hr DAILY INJ 03/17/25 10:00 03/28/25 10:17 200.8 MLS/HR Thiamine HCl 100 mg DAILY IV 03/18/25 10:00 03/29/25 09:56 100 MG Atorvastatin Calcium 40 mg HS PO 03/17/25 22:00 Hold Sucralfate 1 gm QID@0600,1130,1700,2200 GT 03/23/25 17:00 03/29/25 05:37 1 GM Pantoprazole Sodium 40 mg BID IV 03/26/25 22:00 03/29/25 09:56 40 MG Enteral Nutritional Formula 1,000 ml 30ML/HR GT 03/26/25 11:00 03/27/25 21:37 1,000 ML Labetalol HCl 10 mg Q2HPRN PRN IV 03/27/25 11:30 03/29/25 05:37 10 MG Losartan Potassium 100 mg DAILY PO 03/28/25 09:15 03/28/25 09:50 100 MG Ipratropium Cobb 0.5 mg Q6HR NEB 03/28/25 12:00 03/29/25 05:49 0.5 MG Levalbuterol HCl 0.625 mg Q6HR NEB 03/28/25 12:00 03/29/25 05:49 0.625 MG Clonidine HCl 0.1 mg BID PO 03/28/25 22:00 03/29/25 09:55 0.1 MG Nicotine 1 patch DAILY TD 03/29/25 10:00 03/29/25 09:55 1 PATCH Lorazepam 0.5 mg [id number] PRN IV 03/28/25 19:30 03/28/25 22:17 0.5 MG Potassium Chloride 100 ml @ 50 mls/hr Q2H IV 03/29/25 06:30 03/29/25 10:29 03/29/25 08:27 50 MLS/HR Examination Physical Examination General: Patient alert and oriented in person, place and time. Patient following commands. currently on BIPAP HEENT: Normocephalic, atraumatic, moist mucous membranes Respiratory/pulmonary: Clear lungs bilaterally, but there are some secretion sounds billaterally, no wheezes. currently on BIPAP Cardiovascular: Normal heart sounds S1 and S2 with no associated murmurs Abdomen: Abdomen nondistended, there is no pain to palpation in any of the abdominal quadrants, no palpable masses. Extremities: There is no peripheral edema present at the lower extremities. Skin: No rashes or pruritus, there is no sacral edema present at this time. Neurological: Intact cranial nerves with right sided weakness. laboratory and microbiology Laboratory Tests 03/29/25 03:15 Test 03/29/25 03:15 Range/Units Serum Glucose 110 H 74-106 mg/dL Microbiology Date/Time Source Procedure Growth Status 03/16/25 16:36 Nose MRSA Screen - Final Complete 03/16/25 16:06 Sputum Gram Stain - Final Complete 03/16/25 16:06 Respiratory Culture - Final Stenotrophomonas maltophilia Escherichia coli Presumptive Milady albicans Complete 03/13/25 11:53 Stool Stool Culture - Final Complete 03/13/25 11:53 Stool Shiga Toxin I & II - Final Complete 03/12/25 11:55 Urine - Barrios Port Urine Culture - Final Complete 03/11/25 15:36 Blood Blood Culture - Final NO GROWTH AFTER 5 DAYS OF INCUBATION. Complete Problem List/Assessment/Plan Problem List/Assessment/Plan Assessment/Plan NEURO: Acute metabolic encephalopathy secondary to acute ischemic stroke Acute or subacute ischemic stroke Hypertensive emergency Acute anxiety RASS score: - 1 - CT head without contrast demonstrated new medial right parieto-occipital focal region of diminished parenchymal attenuation within the medial right parietal occipital lobes. This is concerning for an acute to subacute infarct with chronic multifocal lacunar infarct - MRI showed Infarcts involving multiple vascular territories involved medial right occipital lobe, posterior left occipital lobe, and left lopes radiata white matter tracts. Few additional tiny foci of diffusion restriction at the anterior right parietal cortex. - Neurology on board - hold aspirin and Plavix for now because of GI bleeding - atorvastatin 40 mg p.o. daily - Clonidine 0.1 mg p.o. b.i.d., losartan 100 mg daily and IV labetalol 5 mg q.2h PRN - IV Ativan 0.5 mg q.4 PRN CARDIOVASCULAR: Chronic diastolic heart failure with preserved ejection fraction - Echo on 11/12 demonstrated EF 65%, MILD LVH AND MILD LV DIASTOLIC DYSFUNCTION - elevated BNP - CxR showed Bilateral interstitial opacities, small left basilar consolidation and pleural effusion -Sinus tachycardia likely due to anxiety S/P extubation PULMONARY: Acute hypoxic respiratory failure S/P extubation on 03/27/2025 -Currently on BIPAP with an IPAP of 16, EPAP seven, FiO2 40%. -Tachypneic likely due to anxiety, s/p extubation GASTROINTESTINAL: Acute GI bleed upper vs lower Partial small Intestinal obstruction likely secondary to fecal impaction. Acute Cholelithiasis and choledocholithiasis C diff positive Transaminitis likely secondary to low hepatic perfusion Elevated alkaline phosphatase -CT abdomen/pelvis showed low-grade distal partial obstruction due to fecal retention. - Gastrograffin study showed Contrast is identified within the colon by 3 hours. No evidence of bowel obstruction. -EGD on 03/13/25 showed 1-2 cm sliding-type hiatal hernia with severe grade C linear erosive esophagitis with esophageal ulcers extending into the distal 15 cm of the esophagus persistent duodenal bulb ulcer seen just inside the pyloric opening which was large coalescing with a visible sutures; there was no active bleeding or visible vessel but there was acute on chronic inflammation deformity of the postbulbar duodenal area and but there was area of debris and ongoing chronic ulceration inflammation and the endoscope was not advanced beyond this area mild gastritis and some old coffee-ground within the stomach - GB U/S demonstrated gallbladder wall thickening and pericholecystic edema, concerning for cholecystitis and dilated CBD up to 16 mm. - MRCP showed choledocholithiasis with mild dilation of the common bile duct - Tube feeding at 30 mL/hours - IV Protonix 40 mg bid - Carafate suspension 1 g q.i.d. - Zofran 4 mg IV q.4 PRN - GI and surgery are on the board - Monitor Hand H, transfuse if hemoglobin less than 7 GENITOURINARY: GIOVANI on CKD likely hemodynamically mediated/VMN resolved - Monitor BMP METABOLIC: Hypernatremia Hypokalemia Hypophosphatemia - monitor BMP HEME: Severe microcytic hypochromic anemia due to GI bleeding Iron deficiency due to above Bilateral superficial thrombophlebitis - Patient received 4 units of PRBC - Monitor H&H INFECTIOUS DISEASE: Acute C diff infection - hold po vanc because of upper GI bleeding Nicotine dependence - Nicotine dependence 21 g/24 hours DIET: TPN, Tube feeding DVT prophylax: SCD GI prophylaxis: Protonix Bowel regimen: Code status: Full code LINES/DRAINS/ACCESS: Extubated on 03/27/25 IV access: Right IJ placed on 03/16/2025 Drips: tube feeding Barrios catheter: DISPOSITION: ICU Patient's status discussed with career representative time spent more than 72 minutes, Plan discussed with Dr. Garcia Plan discussed with: Patient My Orders My Orders Orders - SILAS STAHL Procedure Category Date Status Time Incentive Spirometry ORDERS 03/29/25 Transmitted 07:01 Dietary Evaluation Review Recommendations by RD: Increase Calorie Intake, PPN/TPN Comments: Pt meets criteria 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 based on severe wt loss 35lb/24% in 5 month, intake <50% estimated requirement x 5 days, severe muscle wasting and fat depletion Nutrition Recommendation: 1) PPN/TPN if NPO continues 2) Advance to soft diet as medically feasible 3) Ensure Enlive 240ml TID if pt resumes PO diet 4) Monitor NPO status, lab values, weight trend, and I/O Expected Outcomes/Goals: Intake to meet >75% estimated needs GI symptoms to improve Fu 2-3 days Food and Nutrition Intake (Sev: <50% est energy req 5days Interpretation of weight loss: >10% in 6 months Body Fat Depletion (Severe): Mod to Severe Depletion Muscle Mass (Severe): Mod to Severe Depletion Protein Calorie Malnutrition: Severe Is there a minimum of two crit: Yes CC Plasma Assessment Blood Product Administration S: [id number] Date of Service: Mar 29, 2025 Billing Provider: DIANA GARCIA MD Common Visit Codes: [id number] INP/OBS CARE(MOD) SILAS STAHL Mar 29, 2025 10:40 DIANA GARCIA MD Mar 29, 2025 13:52
--- NOTE | 2025-03-29 11:56 | DVHPN2 ---
Progress Note - Dictate Date Seen: Mar 29, 2025 Has the PT tested + for MRSA If YES, has PT been informed?: No Medical Necessity Reason Pt with a Central, PICC or Fol: Yes The following are medically ne: Central Line, Barrios Catheter Subjective Patient is in ICU 101, extubated and awake Patient is on enteral tube feedings at 30 mL/hour No active GI bleeding reported, hemoglobin stable at 9.7 Patient underwent an MRCP yesterday for a dilated CBD and elevated alk-phos, MRCP suggestive of a mid CBD stone Right upper quadrant ultrasound showed evidence of gallbladder sludge and inflammation Hepatitis panel is negative and HIV is negative and ferritin is normal vital signs Vital Sign Date Time Temp Pulse Resp B/P (MAP) Pulse Ox O2 Delivery O2 Flow Rate FiO2 03/29/25 11:28 96 35 100 03/29/25 11:22 Nasal Cannula* 3 32 03/29/25 10:41 172/106 03/29/25 04:00 99.4 99.4 Total Intake and Output 03/28/25 03/28/25 03/29/25 15:00 23:00 07:00 Intake Total 50.2 ml 128 ml 306 ml Output Total 500 ml 1775 ml Balance 50.2 ml -372 ml -1469 ml medications Current Medications Medications Dose Ordered Sig/Wally Route Start Time Stop Time Status Last Admin Dose Admin Ondansetron HCl 4 mg Q4HP PRN IV 03/12/25 00:00 Midazolam HCl 100 ml @ 1 mls/hr Q24H IV 03/16/25 16:30 03/23/25 14:52 2 MLS/HR Diagnostic Test (Pha) 1 strip Q6HR 03/16/25 18:00 03/29/25 05:48 1 STRIP Insulin Human Regular FOLLOW SLIDING SCALE Q6HR SC 03/16/25 18:00 03/29/25 05:48 2 UNITS Dextrose 50 ml UD IV 03/16/25 17:15 Folic Acid 1 mg/ Dextrose 50.2 ml @ 200.8 mls/ hr DAILY INJ 03/17/25 10:00 03/29/25 10:30 200.8 MLS/HR Thiamine HCl 100 mg DAILY IV 03/18/25 10:00 03/29/25 09:56 100 MG Atorvastatin Calcium 40 mg HS PO 03/17/25 22:00 Hold Sucralfate 1 gm QID@0600,1130,1700,2200 GT 03/23/25 17:00 03/29/25 10:29 1 GM Pantoprazole Sodium 40 mg BID IV 03/26/25 22:00 03/29/25 09:56 40 MG Enteral Nutritional Formula 1,000 ml 30ML/HR GT 03/26/25 11:00 03/27/25 21:37 1,000 ML Ipratropium Cummings 0.5 mg Q6HR NEB 03/28/25 12:00 03/29/25 11:22 0.5 MG Levalbuterol HCl 0.625 mg Q6HR NEB 03/28/25 12:00 03/29/25 11:22 0.625 MG Nicotine 1 patch DAILY TD 03/29/25 10:00 03/29/25 09:55 1 PATCH Lorazepam 0.5 mg [id number] PRN IV 03/28/25 19:30 03/28/25 22:17 0.5 MG Clonidine HCl 0.2 mg TID PO 03/29/25 14:00 Labetalol HCl 20 mg Q4HP PRN IV 03/29/25 11:00 Furosemide 20 mg BIDD IV 03/29/25 18:00 Losartan Potassium 100 mg DAILY PO 03/30/25 10:00 objective General-cachectic male HEENT-normocephalic, no icterus, no pallor, neck supple Respiratory-fair air entry bilateral, no rhonchi, no wheeze [id number] heard, no murmurs appreciated Abdominal-soft, nontender, nondistended Musculoskeletal-no pedal edema, no calf tenderness Genitourinary-deferred Neuro-awake alert oriented x3, Psychiatric-not agitated, cooperative, laboratory and microbiology Laboratory Tests 03/29/25 03:15 Test 03/29/25 03:15 Range/Units Serum Glucose 110 H 74-106 mg/dL Problems(with codes): (1) Elevated liver function tests (2) Choledocholithiasis (3) TIA (transient ischemic attack) (4) C. difficile colitis (5) Elevated liver enzymes (6) Gallstone (7) Duodenal ulcer disease Prognosis Plan Continue IV Protonix 40 mg q.8 hours Continue enteral tube feedings Swallow eval early next week to see if the patient can be started on a diet Based on my recent endoscopy the patient had deformity of t the pyloric duodenal channel There was extensive ulceration with areas of necrosis around the area of the anastomosis I do not believe this patient will be able to undergo an ERCP in the near future Once the patient is stable surgical consult to be considered for possible cholecystectomy and CBD exploration Dietary Evaluation Review Recommendations by RD: Increase Calorie Intake, PPN/TPN Comments: Pt meets criteria 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 based on severe wt loss 35lb/24% in 5 month, intake <50% estimated requirement x 5 days, severe muscle wasting and fat depletion Nutrition Recommendation: 1) PPN/TPN if NPO continues 2) Advance to soft diet as medically feasible 3) Ensure Enlive 240ml TID if pt resumes PO diet 4) Monitor NPO status, lab values, weight trend, and I/O Expected Outcomes/Goals: Intake to meet >75% estimated needs GI symptoms to improve Fu 2-3 days Food and Nutrition Intake (Sev: <50% est energy req 5days Interpretation of weight loss: >10% in 6 months Body Fat Depletion (Severe): Mod to Severe Depletion Muscle Mass (Severe): Mod to Severe Depletion Protein Calorie Malnutrition: Severe Is there a minimum of two crit: Yes Plan discussed with: Other (Dr Chen and ICU Nurse) CC Plasma Assessment Blood Product Administration S: [id number] GURJIT NOBLE MD Mar 29, 2025 11:55
[2025-03-29 14:26] LABS: Magnesium 1.9 mg/dL (1.6-2.6)
[2025-03-29 14:38] LABS: Potassium 3.5 mmol/L (3.5-5.1)
[2025-03-29] MEDS: LABETALOL HCL 20 MG/4 ML VL IV PRN (14:39)
[2025-03-29] MEDS: FUROSEMIDE 20 MG/2 ML VIAL IV SCH (17:49)
--- NOTE | 2025-03-29 20:08 | DVHPN2 ---
Progress Note - Dictate Date Seen: Mar 29, 2025 Has the PT tested + for MRSA If YES, has PT been informed?: No Medical Necessity Reason Pt with a Central, PICC or Fol: Yes The following are medically ne: Central Line, Barrios Catheter Subjective Mr. Perez is a 49 years old right-handed gentleman with a history of hypertension, dyslipidemia, multiple strokes, DVT, he was brought to the [facility] on 03/11/2025 with a chief complaint of diarrhea, history is obtained from his , the chart review I saw him on 08/23/2023 for TIA, 10/27/2024 for encephalopathy I have seen and examined the patient, I have talked to his nurse, he is awake, oriented x3, his speech is very soft and weak, he follows vertigo he moves the left arm, and a little bit the left leg Stool occult blood, 03/13/2025, 03/29/2025: Positive UDS, 03/12/2025: Negative Plasma alcohol, 03/12/2025: <3 Urinalysis, 03/12/2025: WBC: One, urine leukocyte esterase: Negative ABG, 03/16/25: Hypoxia, respiratory acidosis WBC/Hb/PLT'/MCV, 03/16/25: 10.l 6/7.9/339/82.4 Na, 03/11/2025: 129, 03/12/2025: 130, 129, 03/15/25: 145, 03/16/25: 142 BUNs/CR, 08/22/2023: 15/1.45, 03/11/2025: 55/1.77, 03/13/2025: 43/1.58, 02/2725: 65/2.56 GFR, 08/22/2023: 59 TBI/AST/ALT/AP,: 0.8/269/450/398 TG/CHO L/LDL/HDL, 08/2023: 136/166/111/39 Vitamin B12, 03/12/25: 852 Folic acid, 03/12/2025: 12.28 TSH, 08/23/2023: 4.25 Ultrasound, 03/24/2025: Gallbladder entirely distended with sludge with gallbladder wall thickening and pericholecystic edema, concerning for cholecystitis. Recommend surgical consultation HIDA scan. Dilated common bile duct measuring 16 mm which can be further evaluated with MRCP. Echogenic liver which can be seen with hepatic steatosis, cirrhosis. Right pleural effusion Extremity venous study, right arm, 11/09/2024: Thrombus is seen in the cephalic vein in the forearm. DONAL, 08/23/2023: 1. No evidence of intracardiac source of embolus in the study conducted today. 2. Normal valves without significant masses or change vegetations were discernible. 3. No evidence of intra-atrial shunting by bubble study and color Doppler. 4. Mild atherosclerotic plaquing was visualized in the arch of the aorta without evidence of dissection in the visualized part EGD, 03/13/2025: 1. 1-2 cm sliding-type hiatal hernia with severe grade C linear erosive esophagitis with esophageal ulcers extending into the distal 15 cm of the esophagus 2. Patient had a persistent duodenal bulb ulcer seen just inside the pyloric opening which was large coalescing with a visible sutures; there was no active bleeding or visible vessel but there was acute on chronic inflammation 3. Patient had deformity of the postbulbar duodenal area and I was able to see the 2nd part of the duodenum but there was area of debris and ongoing chronic ulceration inflammation and the endoscope was not advanced beyond this area 3. Patient had mild gastritis and some old coffee-ground within the stomach Chest x-ray, 03/12/2025: Mild chronic appearing left basilar pulmonary airspace disease and possible small pleural effusion Chest x-ray, 03/13/2025: 1. Enteric tube terminates in the stomach. 2. Worsening bilateral interstitial and alveolar opacities. Chest x-ray, : Endotracheal tube and right IJ approach central venous catheters are in satisfactory position. Trace cnro-hwsguvs-fggh-right pleural effusions with right retro lower lung zone linear atelectasis/ fluid within the fissure. CT head, 10/24/2024: 1. No intracranial hemorrhage or mass effect. 2. Eats-hh-wavkkvse chronic microvascular ischemic changes. 3. Old bilateral basal ganglia lacunar infarcts. 4. Small bilateral mastoid effusions. CT head, 03/17/2025: 1. New medial right parieto-occipital focal region of diminished parenchymal attenuation within the medial right parietal occipital lobes. This is concerning for an acute to subacute infarct. Recommend further evaluation with MRI. 2. No evidence of acute intracranial hemorrhage, mass effect or hydrocephalus. 3. Chronic sequelae of microangiopathy and atrophic cortical volume loss.4. Multifocal chronic lacunar infarcts as outlined above. CT abdomen/pelvis, 10/04/2024: 1. Extensive intra-abdominal free air concerning for perforated viscus. Surgical consultation is recommended. 2. Enteritis is seen in multiple loops of small bowel in the left hemiabdomen. 3. Moderate abdominopelvic ascites. 4. Small right pleural effusion. CTA neck, head, 08/22/2023:1. CTA head demonstrates no evidence of large vessel occlusion, aneurysm, or significant stenosis. 2. CTA neck demonstrates no evidence of carotid or vertebral dissection or significant stenosis. 3. No noncontrast CT head was performed. 4. Additional findings as detailed above MRI head, 08/23/2023: No acute infarct, intracranial hemorrhage, mass effect, or hydrocephalus. Moderate periventricular and deep subcortical white matter T2 hyperintensities which are nonspecific, but most likely related to sequela of chronic microvascular ischemic changes (I have reviewed the MRI films with our in-house radiologist, Dr. Black, the patient had bilateral multiple subacute/chronic infarcts) MRI head, 11/01/2024: No acute cerebrovascular ischemia. Kqny-rr-jscnszje chronic microvascular ischemic changes. Bilateral mastoid effusions. Old bilateral basal ganglia / lopes radiata infarcts. MR head, 03/16/2025: Infarcts involving multiple vascular territories as described. vital signs Vital Sign Date Time Temp Pulse Resp B/P (MAP) Pulse Ox O2 Delivery O2 Flow Rate FiO2 03/29/25 18:10 114 25 100 03/29/25 18:04 Nasal Cannula* 6 44 03/29/25 18:00 174/115 (134) 03/29/25 17:45 98.7 98.7 Total Intake and Output 03/28/25 03/28/25 03/29/25 15:00 23:00 07:00 Intake Total 50.2 ml 128 ml 306 ml Output Total 500 ml 1775 ml Balance 50.2 ml -372 ml -1469 ml medications Current Medications Medications Dose Ordered Sig/Wally Route Start Time Stop Time Status Last Admin Dose Admin Ondansetron HCl 4 mg Q4HP PRN IV 03/12/25 00:00 Midazolam HCl 100 ml @ 1 mls/hr Q24H IV 03/16/25 16:30 03/23/25 14:52 2 MLS/HR Diagnostic Test (Pha) 1 strip Q6HR 03/16/25 18:00 03/29/25 17:51 1 STRIP Insulin Human Regular FOLLOW SLIDING SCALE Q6HR SC 03/16/25 18:00 03/29/25 17:51 2 UNITS Dextrose 50 ml UD IV 03/16/25 17:15 Folic Acid 1 mg/ Dextrose 50.2 ml @ 200.8 mls/ hr DAILY INJ 03/17/25 10:00 03/29/25 10:30 200.8 MLS/HR Thiamine HCl 100 mg DAILY IV 03/18/25 10:00 03/29/25 09:56 100 MG Atorvastatin Calcium 40 mg HS PO 03/17/25 22:00 Hold Sucralfate 1 gm QID@0600,1130,1700,2200 GT 03/23/25 17:00 03/29/25 17:06 1 GM Pantoprazole Sodium 40 mg BID IV 03/26/25 22:00 03/29/25 09:56 40 MG Enteral Nutritional Formula 1,000 ml 30ML/HR GT 03/26/25 11:00 03/27/25 21:37 1,000 ML Ipratropium [place] 0.5 mg Q6HR NEB 03/28/25 12:00 03/29/25 18:00 0.5 MG Levalbuterol HCl 0.625 mg Q6HR NEB 03/28/25 12:00 03/29/25 18:00 0.625 MG Nicotine 1 patch DAILY TD 03/29/25 10:00 03/29/25 09:55 1 PATCH Lorazepam 0.5 mg [id number] PRN IV 03/28/25 19:30 03/29/25 19:55 0.5 MG Clonidine HCl 0.2 mg TID PO 03/29/25 14:00 03/29/25 14:37 0.2 MG Labetalol HCl 20 mg Q4HP PRN IV 03/29/25 11:00 03/29/25 14:39 20 MG Furosemide 20 mg BIDD IV 03/29/25 18:00 03/29/25 17:49 20 MG Losartan Potassium 100 mg DAILY PO 03/30/25 10:00 objective The patient is well-nourished and well-developed with no distress. MENTAL STATUS: Subjective CRANIAL NERVES: Pupils are equal, round and reactive. EOMs full and conjugate. Facial sensation intact in all three divisions bilaterally. Mandibular strength intact. Facial muscles symmetrical and strength intact. SENSATION: Okay to touch MOTOR: Normal tone in the upper and lower extremity. Normal muscle bulk. No fasciculations. Moves the left arm and leg REFLEXES: Deep tendon reflexes are symmetrical, 3/-44 in the knees and 4/4 in the ankles. No pathological reflexes. CEREBELLAR/COORDINATION: Deferred GAIT/STATION: deferred. laboratory and microbiology Laboratory Tests 03/29/25 13:48 03/29/25 03:15 Test 03/29/25 03:15 Range/Units Serum Glucose 110 H 74-106 mg/dL Problem List Altered mental status Metabolic encephalopathy secondary to sepsis, septic shock, hypernatremia Hypoxic encephalopathy Peptic ulcer, GI bleeding, anemia Respiratory failure Right hemiparesis Acute multiple strokes in different arterial territories (MRI 03/18/25) Multiple chronic strokes Maybe secondary to history methamphetamine, cocaine, alcohol use History of alcohol abuse History of cocaine, methamphetamine abuse Assessment/Plan Monitoring Supportive treatment ICU care Stabilize vitals Respiratory support Follow-up labs IV antibiotics Aspirin 81 mg daily later Lipitor later TPN Thiamine supplementation Folic acid supplementation GI service on case Nephrology service on case More recommended per clinical course This medical document was created using an electronic medical record system with On[employer] dictation system. Although this document has been carefully reviewed, there may still be some phonetic and typographical errors. These areas are purely typographical due to imperfect Prognosis poor Dietary Evaluation Review Recommendations by RD: Increase Calorie Intake, PPN/TPN Comments: Pt meets criteria 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 based on severe wt loss 35lb/24% in 5 month, intake <50% estimated requirement x 5 days, severe muscle wasting and fat depletion Nutrition Recommendation: 1) PPN/TPN if NPO continues 2) Advance to soft diet as medically feasible 3) Ensure Enlive 240ml TID if pt resumes PO diet 4) Monitor NPO status, lab values, weight trend, and I/O Expected Outcomes/Goals: Intake to meet >75% estimated needs GI symptoms to improve Fu 2-3 days Food and Nutrition Intake (Sev: <50% est energy req 5days Interpretation of weight loss: >10% in 6 months Body Fat Depletion (Severe): Mod to Severe Depletion Muscle Mass (Severe): Mod to Severe Depletion Protein Calorie Malnutrition: Severe Is there a minimum of two crit: Yes Plan discussed with: Other CC Plasma Assessment Blood Product Administration S: [id number] LEANDRO BLACK MD Mar 29, 2025 20:08
--- NOTE | 2025-03-29 20:18 | DVH ---
CHEST RADIOGRAPH Indication: sob Technique: Single frontal view of the chest was obtained Comparison: XY CHEST XRAY 1 VIEW on DOS: 03/29/25, XY CHEST XRAY 1 VIEW on DOS: 03/28/25, XY CHEST PORTABLE on DOS: 03/28/25 FINDINGS: Lines and Tubes: Right internal jugular catheter in place unchanged from 03/29/2025. Lungs: Increased bilateral perihilar bronchovascular prominence. Pleura: No effusion. No pneumothorax. Cardiomediastinal contours: No significant change from 03/29/2025 Bones: No acute osseous abnormality. IMPRESSION: 1. Right internal jugular catheter in place unchanged. 2. Slight increased pulmonary vascular prominence in the perihilar areas. Findings may represent developing congestive failure.
[2025-03-29 20:19] LABS: Base Excess 4.9 mmol/L (-2.0-3.0)
--- NOTE | 2025-03-29 23:30 | DVHPN2 ---
Subjective DOS: 03/29/2025 Patient seen and examined at bedside. Remains on supplemental oxygen Overnight events reviewed Changes from previous H/P or p: No Changes Eyes: No Pain, No Vision change, No Conjunctivae inflammation, No Eyelid inflammation, No Other, No Redness ENT: No Ear pain, No Ear discharge, No Nose pain, No Nose discharge, No Nose congestion, No Mouth pain, No Mouth swelling, No Throat pain, No Throat swelling, No Other Cardiovascular: No Chest Pain, No Palpitations, No Orthopnea, No Paroxysmal Noc. Dyspnea, No Edema, No Lt Headedness, No Other Respiratory: No Cough, No Dry, No Shortness of breath, No SOB with excertion, No Wheezing, No Hemoptysis, No Pleuritic Pain, No Sputum, No Other Gastrointestinal: Melena Musculoskeletal: No other, No neck pain, No shoulder pain, No arm pain, No back pain, No hand pain, No leg pain, No foot pain Skin: No Rash, No Lesions, No Jaundice, No Bruising, No Other Objective Vitals Vital Signs Date Time Temp Pulse Resp B/P (MAP) Pulse Ox O2 Delivery O2 Flow Rate FiO2 03/29/25 22:01 140/100 03/29/25 22:00 31 97 Hi-Flow Heated NC+ 30 50 50 03/29/25 22:00 85 03/29/25 17:45 98.7 98.7 Intake/Output Intake and Output 03/29/25 07:00 Intake Total 484.2 ml Output Total 2275 ml Balance -1790.8 ml Intake Oral 110 ml IV Total 50.2 ml Tube Feeding 324 ml Output Urine Total 2275 ml # Bowel Movements 2 Exam Gen.: Patient lying in bed in no apparent distress. On supplemental oxygen. Head: Normocephalic, atraumatic. Eyes: EOMI/PERRLA. Ears: Normal hearing. Normal anatomy. Neck/trachea: Trachea midline, supple. Nose: Normal external anatomy. Mouth: Moist mucous membranes. Chest: Decreased air entry bilaterally. No wheezing or rhonchi. Cardiovascular: Positive S1, positive S2. Regular rate and rhythm. Abdomen: Positive bowel sounds in all 4 quadrants. Soft, non-tender, non- distended. : Deferred. Rectal: Deferred. Skin: Warm, dry. Intact. Extremities: 2+ radial pulses bilaterally. No lower extremity edema. Neuro: Awake, alert, oriented x3. No gross motor or sensory deficits. Cranial nerves II through XII intact. Gait not assessed. Medications Current Medications Medications Dose Ordered Sig/Wally Route Start Time Stop Time Status Last Admin Dose Admin Ondansetron HCl 4 mg Q4HP PRN IV 03/12/25 00:00 Midazolam HCl 100 ml @ 1 mls/hr Q24H IV 03/16/25 16:30 03/23/25 14:52 2 MLS/HR Diagnostic Test (Pha) 1 strip Q6HR 03/16/25 18:00 03/29/25 17:51 1 STRIP Insulin Human Regular FOLLOW SLIDING SCALE Q6HR SC 03/16/25 18:00 03/29/25 17:51 2 UNITS Dextrose 50 ml UD IV 03/16/25 17:15 Folic Acid 1 mg/ Dextrose 50.2 ml @ 200.8 mls/ hr DAILY INJ 03/17/25 10:00 03/29/25 10:30 200.8 MLS/HR Thiamine HCl 100 mg DAILY IV 03/18/25 10:00 03/29/25 09:56 100 MG Atorvastatin Calcium 40 mg HS PO 03/17/25 22:00 Hold Sucralfate 1 gm QID@0600,1130,1700,2200 GT 03/23/25 17:00 03/29/25 22:01 1 GM Pantoprazole Sodium 40 mg BID IV 03/26/25 22:00 03/29/25 21:33 40 MG Enteral Nutritional Formula 1,000 ml 30ML/HR GT 03/26/25 11:00 03/27/25 21:37 1,000 ML Ipratropium [place] 0.5 mg Q6HR NEB 03/28/25 12:00 03/29/25 18:00 0.5 MG Levalbuterol HCl 0.625 mg Q6HR NEB 03/28/25 12:00 03/29/25 18:00 0.625 MG Nicotine 1 patch DAILY TD 03/29/25 10:00 03/29/25 09:55 1 PATCH Lorazepam 0.5 mg [id number] PRN IV 03/28/25 19:30 03/29/25 19:55 0.5 MG Clonidine HCl 0.2 mg TID PO 03/29/25 14:00 03/29/25 22:01 0.2 MG Labetalol HCl 20 mg Q4HP PRN IV 03/29/25 11:00 03/29/25 14:39 20 MG Furosemide 20 mg BIDD IV 03/29/25 18:00 03/29/25 17:49 20 MG Losartan Potassium 100 mg DAILY PO 03/30/25 10:00 Laboratory Results Laboratory Tests 03/29/25 03:15 03/29/25 13:48 Chemistry Test 03/29/25 03:15 03/29/25 13:48 Albumin 2.9 g/dL (3.2-4.8) L Calcium Level 8.3 mg/dL (8.7-10.4) L Total Protein 6.7 g/dL (5.7-8.2) Magnesium Level 1.9 mg/dL (1.6-2.6) Cardiac Markers Test 03/29/25 03:15 B-Type Natriuretic Peptide 1867.91 pg/mL (0-100) LFT Test 03/29/25 03:15 Alanine Aminotransferase (ALT) 78 U/L (7-40) H Alkaline Phosphatase 562 U/L (46-116) H Aspartate Amino Transferase (AST) 48 U/L (13-40) H Total Bilirubin 0.5 mg/dL (0.2-1.0) Urinalysis Test 03/12/25 05:00 03/12/25 10:20 03/17/25 06:30 Urine Color Light-yellow (Yellow) Urine Clarity Clear (Clear) Urine pH 5.5 (5.0-9.0) Urine Specific [place] 1.013 (1.001-1.035) Urine Protein Trace (Negative) H Urine Ketones Trace (Negative) Urine Blood Negative /uL (Negative) Urine Nitrite Negative (Negative) Urine Bilirubin Negative (Negative) Urine Urobilinogen Normal mg/dL (Negative) Urine Leukocyte Esterase Negative /uL (Negative) Urine RBC <1 /hpf (0 - 3) Urine Microscopic WBC < 1 /HPF (0-3) Urine Squamous Epithelial Cells None seen /hpf (<5) Urine Bacteria None seen /hpf (None Seen) Urine Glucose Normal mg/dL (Normal) Urine Protein/Creatinine Ratio 2.26 Urine Total Protein 23.6 mg/dL (1-14) H Urine Creatinine 56.14 mg/dL (30.0-125.0) Urine Sodium 13 mmol/L (40-220) L Blood Gas Results Test 03/29/25 00:53 03/29/25 20:12 Arterial Blood pH 7.493 (7.350-7.450) 7.479 (7.350-7.450) FiO2 % 60.0 100.0 Microbiology Microbiology Date/Time Source Procedure Growth Status 03/16/25 16:36 Nose MRSA Screen - Final Complete 03/16/25 16:06 Sputum Gram Stain - Final Complete 03/16/25 16:06 Respiratory Culture - Final Stenotrophomonas maltophilia Escherichia coli Presumptive Milady albicans Complete 03/13/25 11:53 Stool Stool Culture - Final Complete 03/13/25 11:53 Stool Shiga Toxin I & II - Final Complete 03/12/25 11:55 Urine - [place] Urine Culture - Final Complete 03/11/25 15:36 Blood Blood Culture - Final NO GROWTH AFTER 5 DAYS OF INCUBATION. Complete Assessment/Plan Assessment/Plan Impression: Acute hypoxic respiratory failure Dependence on supplemental oxygen Acute metabolic encephalopathy Multiple strokes Chronic diastolic heart failure with preserved EF GI hemorrhage Anemia GIOVANI on CKD Events: Patient remains on supplemental oxygen On 3 LPM NC Taper O2 as tolerated. Increased secretions - continue on ipratropium 0.5 mg q.6 hours Patient underwent an MRCP yesterday for a dilated CBD and elevated alk-phos, MRCP suggestive of a mid CBD stone Right upper quadrant ultrasound showed evidence of gallbladder sludge and inflammation Monitor H&H - Hgb currently stable at 9.7 g/dL Transfuse if Hgb less than 7.0 g/dL Continue sucralfate + Protonix BID FOBT positive GI recommendations appreciated. Hold off on anticoagulation and antiplatelet drugs because of likely active GI bleed Continue antibiotics Incentive spirometry Blood pressure control - on antihypertensive Pain control Avoid oversedation Tube feeds for nutritional support Labs and imaging reviewed. Rest of plan as noted below. Plan: S/p extubation on 03/27/25 On supplemental oxygen Titrate to keep O2 sats above 92%. Continue antibiotics. Follow up cultures. Pressors as necessary for hemodynamic support Titrate to keep mean arterial pressure greater than 65 mmHg. Monitor hemoglobin Transfuse if less than 7.0 g/dL. NGT to LIS Protonix drip F/u GI and Surgery recs Accu-Cheks, ISS PRN Monitor renal function Monitor electrolytes. Supplement as necessary. Monitor ins and outs. Maintain euvolemia. TPN for nutritional support Counseled against vaping and marijuana use. GI prophylaxis. DVT prophylaxis. Prognosis: Poor given patient's multiple co-morbidities. Condition: Critical Rest of plan per hospitalist and other consultants. A total of 35 minutes of critical care time was spent reviewing the patient record, examining the patient, making a diagnostic and therapeutic plan, discussing this plan with the medical personnel, following up on diagnostic studies and following the patient for clinical stability excluding any and all procedures. At least 50% of this time was spent in direct, [id number]-[id number] contact. Thank you, Dr. Khoury, for allowing me to participate in this patient's care. Further recommendations will depend on the patient's clinical course. Please do not hesitate to contact me if you have any questions or concerns. This medical document was created using an electronic medical record system with [employer]! dictation system. Although these documentations are being carefully reviewed, there may still be some phonetic and typographical changes. The errors are purely typographical, due to imperfection on the software program, and do not reflect any compromise in the patient's medical care. Plan discussed with: Patient, Other (JASPER Wren) Visit Coding Pulmonary Billing Provider: ARIE LOPEZ MD Date of Service if different f: Mar 29, 2025 Common Visit Codes: [id number] INP/OBS CARE(HIGH), [id number] CARE 30-74 MIN ARIE LOPEZ MD Mar 29, 2025 23:30
[2025-03-30] VITALS (35 sets, daily range): BP systolic 128–178; BP diastolic 83–107; PULSE 72–102; RESP 18–36; TEMP 97.3–98.7; O2SAT 90–100
--- NOTE | 2025-03-30 01:12 | DVH ---
CHEST RADIOGRAPH Indication: reeval lung parenchyma Technique: Single frontal view of the chest was obtained COMPARISON: XY CHEST XRAY 1 VIEW on DOS: 03/29/25, XY CHEST XRAY 1 VIEW on DOS: 03/29/25, XY CHEST XRAY 1 VIEW on DOS: 03/28/25, XY CHEST PORTABLE on DOS: 03/28/25, XY CHEST PORTABLE on DOS: 03/27/25 FINDINGS: NG tube in the proximal stomach. Right-sided central line unchanged. Small left-sided pleural effusion with dense atelectasis/consolidation of the left lung base. This appears similar. Right lung remains generally clear. Stable enlargement of the cardiac silhouette with slight prominence of the pulmonary vasculature. IMPRESSION: Stable pulmonary venous congestion. Stable small left-sided pleural effusion with dense atelectasis/consolidation at the left lung base.
[2025-03-30 03:32] LABS: Hematocrit 29.4 % (41.0-53.0); Hemoglobin 9.6 g/dL (13.5-17.5); Mean Corpuscular Hemoglobin 27.3 pg (28.0-32.0); Mean Corpuscular Volume 83.3 fL (80.0-100.0); Nucleated Red Blood Cells % 0.0 %
[2025-03-30 03:48] LABS: Anion Gap 14 (5-15); BUN/Creatinine Ratio 22.5 (10.0-20.0); Carbon Dioxide 27 mmol/L (20-31); Chloride 103 mmol/L (98-107); Glucose 98 mg/dL (74-106); Sodium 144 mmol/L (136-145); Total Protein 7.0 g/dL (5.7-8.2)
[2025-03-30 03:49] LABS: Bilirubin, Total 0.7 mg/dL (0.2-1.0)
[2025-03-30 03:57] LABS: Alanine Aminotransferase 67 U/L (7-40); Albumin 3.1 g/dL (3.2-4.8); Alkaline Phosphatase 457 U/L (46-116); Blood Urea Nitrogen 27 mg/dL (9-23); Calcium 8.6 mg/dL (8.7-10.4); Potassium 2.9 mmol/L (3.5-5.1)
[2025-03-30] MEDS: POTASSIUM CHL 20MEQ/100ML 100 ML IV SCH (04:38)
[2025-03-30 07:59] LABS: Base Excess 2.5 mmol/L (-2.0-3.0)
--- NOTE | 2025-03-30 10:32 | DVHPN2 ---
Progress Note - Dictate Date Seen: Mar 30, 2025 Has the PT tested + for MRSA If YES, has PT been informed?: No Medical Necessity Reason Pt with a Central, PICC or Fol: Yes The following are medically ne: Central Line, Barrios Catheter Subjective Mr. Perez is a 49 years old right-handed gentleman with a history of hypertension, dyslipidemia, multiple strokes, DVT, he was brought to the [facility] on 03/11/2025 with a chief complaint of diarrhea, history is obtained from his , the chart review I saw him on 08/23/2023 for TIA, 10/27/2024 for encephalopathy I have seen and examined the patient, I have talked to his nurse, he is awake, he is oriented to person, place, he knows year and month, his speech is very soft and weak, he follows verbal commands, he can move bilateral arms and legs Stool occult blood, 03/13/2025, 03/29/2025: Positive UDS, 03/12/2025: Negative Plasma alcohol, 03/12/2025: <3 Urinalysis, 03/12/2025: WBC: One, urine leukocyte esterase: Negative ABG, 03/16/25: Hypoxia, respiratory acidosis WBC/Hb/PLT'/MCV, 03/16/25: 10.l 6/7.9/339/82.4 Na, 03/11/2025: 129, 03/12/2025: 130, 129, 03/15/25: 145, 03/16/25: 142 BUNs/CR, 08/22/2023: 15/1.45, 03/11/2025: 55/1.77, 03/13/2025: 43/1.58, 02/2725: 65/2.56 GFR, 08/22/2023: 59 TBI/AST/ALT/AP: 0.8/269/450/398 TG/CHO L/LDL/HDL, 08/2023: 136/166/111/39 Vitamin B12, 03/12/25: 852 Folic acid, 03/12/2025: 12.28 TSH, 08/23/2023: 4.25 Ultrasound, 03/24/2025: Gallbladder entirely distended with sludge with gallbladder wall thickening and pericholecystic edema, concerning for cholecystitis. Recommend surgical consultation HIDA scan. Dilated common bile duct measuring 16 mm which can be further evaluated with MRCP. Echogenic liver which can be seen with hepatic steatosis, cirrhosis. Right pleural effusion Extremity venous study, right arm, 11/09/2024: Thrombus is seen in the cephalic vein in the forearm. DONAL, 08/23/2023: 1. No evidence of intracardiac source of embolus in the study conducted today. 2. Normal valves without significant masses or change vegetations were discernible. 3. No evidence of intra-atrial shunting by bubble study and color Doppler. 4. Mild atherosclerotic plaquing was visualized in the arch of the aorta without evidence of dissection in the visualized part EGD, 03/13/2025: 1. 1-2 cm sliding-type hiatal hernia with severe grade C linear erosive esophagitis with esophageal ulcers extending into the distal 15 cm of the esophagus 2. Patient had a persistent duodenal bulb ulcer seen just inside the pyloric opening which was large coalescing with a visible sutures; there was no active bleeding or visible vessel but there was acute on chronic inflammation 3. Patient had deformity of the postbulbar duodenal area and I was able to see the 2nd part of the duodenum but there was area of debris and ongoing chronic ulceration inflammation and the endoscope was not advanced beyond this area 3. Patient had mild gastritis and some old coffee-ground within the stomach Chest x-ray, 03/12/2025: Mild chronic appearing left basilar pulmonary airspace disease and possible small pleural effusion Chest x-ray, 03/13/2025: 1. Enteric tube terminates in the stomach. 2. Worsening bilateral interstitial and alveolar opacities. Chest x-ray, : Endotracheal tube and right IJ approach central venous catheters are in satisfactory position. Trace tgnk-zibypll-[id number]-right pleural effusions with right retro lower lung zone linear atelectasis/ fluid within the fissure. CT head, 10/24/2024: 1. No intracranial hemorrhage or mass effect. 2. Rzrx-tb-[id number] chronic microvascular ischemic changes. 3. Old bilateral basal ganglia lacunar infarcts. 4. Small bilateral mastoid effusions. CT head, 03/17/2025: 1. New medial right parieto-occipital focal region of diminished parenchymal attenuation within the medial right parietal occipital lobes. This is concerning for an acute to subacute infarct. Recommend further evaluation with MRI. 2. No evidence of acute intracranial hemorrhage, mass effect or hydrocephalus. 3. Chronic sequelae of microangiopathy and atrophic cortical volume loss.4. Multifocal chronic lacunar infarcts as outlined above. CT abdomen/pelvis, 10/04/2024: 1. Extensive intra-abdominal free air concerning for perforated viscus. Surgical consultation is recommended. 2. Enteritis is seen in multiple loops of small bowel in the left hemiabdomen. 3. Moderate abdominopelvic ascites. 4. Small right pleural effusion. CTA neck, head, 08/22/2023:1. CTA head demonstrates no evidence of large vessel occlusion, aneurysm, or significant stenosis. 2. CTA neck demonstrates no evidence of carotid or vertebral dissection or significant stenosis. 3. No noncontrast CT head was performed. 4. Additional findings as detailed above MRI head, 08/23/2023: No acute infarct, intracranial hemorrhage, mass effect, or hydrocephalus. Moderate periventricular and deep subcortical white matter T2 hyperintensities which are nonspecific, but most likely related to sequela of chronic microvascular ischemic changes (I have reviewed the MRI films with our in-house radiologist, Dr. Black, the patient had bilateral multiple subacute/chronic infarcts) MRI head, 11/01/2024: No acute cerebrovascular ischemia. [id number] chronic microvascular ischemic changes. Bilateral mastoid effusions. Old bilateral basal ganglia / lopes radiata infarcts. MR head, 03/16/2025: Infarcts involving multiple vascular territories as described. vital signs Vital Sign Date Time Temp Pulse Resp B/P (MAP) Pulse Ox O2 Delivery O2 Flow Rate FiO2 03/30/25 10:00 91 33 158/99 (118) 99 03/30/25 09:39 Oxymizer 10 N/A 03/30/25 07:00 98.6 98.6 Total Intake and Output 03/29/25 03/29/25 03/30/25 15:00 23:00 07:00 Intake Total 250.2 ml 430 ml 255 ml Output Total 1050 ml 1351 ml Balance 250.2 ml -620 ml -1096 ml medications Current Medications Medications Dose Ordered Sig/Wally Route Start Time Stop Time Status Last Admin Dose Admin Ondansetron HCl 4 mg Q4HP PRN IV 03/12/25 00:00 Midazolam HCl 100 ml @ 1 mls/hr Q24H IV 03/16/25 16:30 11/3/25 14:52 2 MLS/HR Diagnostic Test (Pha) 1 strip Q6HR 03/16/25 18:00 03/30/25 05:55 1 STRIP Insulin Human Regular FOLLOW SLIDING SCALE Q6HR SC 03/16/25 18:00 03/29/25 17:51 2 UNITS Dextrose 50 ml UD IV 03/16/25 17:15 Folic Acid 1 mg/ Dextrose 50.2 ml @ 200.8 mls/ hr DAILY INJ 03/17/25 10:00 03/30/25 09:27 200.8 MLS/HR Thiamine HCl 100 mg DAILY IV 03/18/25 10:00 03/30/25 09:20 100 MG Atorvastatin Calcium 40 mg HS PO 03/17/25 22:00 Hold Sucralfate 1 gm QID@0600,1130,1700,2200 GT 03/23/25 17:00 03/30/25 05:54 1 GM Pantoprazole Sodium 40 mg BID IV 03/26/25 22:00 03/30/25 09:20 40 MG Ipratropium Cullen 0.5 mg Q6HR NEB 03/28/25 12:00 03/30/25 05:51 0.5 MG Levalbuterol HCl 0.625 mg Q6HR NEB 03/28/25 12:00 03/30/25 05:51 0.625 MG Nicotine 1 patch DAILY TD 03/29/25 10:00 03/30/25 09:40 1 PATCH Lorazepam 0.5 mg [id number] PRN IV 03/28/25 19:30 03/29/25 19:55 0.5 MG Clonidine HCl 0.2 mg TID PO 03/29/25 14:00 03/30/25 05:55 0.2 MG Labetalol HCl 20 mg Q4HP PRN IV 03/29/25 11:00 03/30/25 02:43 20 MG Furosemide 20 mg BIDD IV 03/29/25 18:00 03/30/25 05:54 20 MG Losartan Potassium 100 mg DAILY PO 03/30/25 10:00 Enteral Nutritional Formula 1,000 ml 40ML/HR GT 03/30/25 10:00 UNV objective The patient is well-nourished and well-developed with no distress. MENTAL STATUS: Subjective CRANIAL NERVES: Pupils are equal, round and reactive. EOMs full and conjugate. Facial sensation intact in all three divisions bilaterally. Mandibular strength intact. Facial muscles symmetrical and strength intact. SENSATION: Okay to touch MOTOR: Normal tone in the upper and lower extremity. Normal muscle bulk. No fasciculations. Muscle power: Right arm: 3/5, right le/5, left arm: 4/5, left le-3/5 REFLEXES: Deep tendon reflexes are symmetrical, 3-4/4 in the knees and 4/4 in the ankles. No pathological reflexes. CEREBELLAR/COORDINATION: Deferred GAIT/STATION: deferred. laboratory and microbiology Laboratory Tests 03/30/25 02:58 Test 03/30/25 02:58 Range/Units Serum Glucose 98 74-106 mg/dL Problem List Altered mental status Metabolic encephalopathy secondary to sepsis, septic shock, hypernatremia Hypoxic encephalopathy Peptic ulcer, GI bleeding, anemia Respiratory failure Right hemiparesis Acute multiple strokes in different arterial territories (MRI 03/18/25) Multiple chronic strokes Maybe secondary to history methamphetamine, cocaine, alcohol use History of alcohol abuse History of cocaine, methamphetamine abuse Assessment/Plan Monitoring Supportive treatment ICU care Stabilize vitals Respiratory support Follow-up labs IV antibiotics Aspirin 81 mg daily later Lipitor later TPN Thiamine supplementation Folic acid supplementation GI service on case Nephrology service on case More recommended per clinical course This medical document was created using an electronic medical record system with [employer] dictation system. Although this document has been carefully reviewed, there may still be some phonetic and typographical errors. These areas are purely typographical due to imperfect Prognosis poor Dietary Evaluation Review Recommendations by RD: Increase Calorie Intake, PPN/TPN Comments: Pt meets criteria 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 based on severe wt loss 35lb/24% in 5 month, intake <50% estimated requirement x 5 days, severe muscle wasting and fat depletion Nutrition Recommendation: 1) PPN/TPN if NPO continues 2) Advance to soft diet as medically feasible 3) Ensure Enlive 240ml TID if pt resumes PO diet 4) Monitor NPO status, lab values, weight trend, and I/O Expected Outcomes/Goals: Intake to meet >75% estimated needs GI symptoms to improve Fu 2-3 days Food and Nutrition Intake (Sev: <50% est energy req 5days Interpretation of weight loss: >10% in 6 months Body Fat Depletion (Severe): Mod to Severe Depletion Muscle Mass (Severe): Mod to Severe Depletion Protein Calorie Malnutrition: Severe Is there a minimum of two crit: Yes Plan discussed with: Other CC Plasma Assessment Blood Product Administration S: [id number] LEANDRO BLACK MD Mar 30, 2025 10:32
[2025-03-30] MEDS: LOSARTAN POTASSIUM 50 MG TAB PO SCH (10:33)
[2025-03-30] MEDS ORDERED: LABETALOL HCL 20 MG/4 ML VL IV PRN (16:00)
--- NOTE | 2025-03-30 16:07 | DVHPNRES ---
Progress Note Date Seen: Mar 30, 2025 Resident Creating Document: SKY DASH RESIDENT Has the PT tested + for MRSA If YES, has PT been informed?: No Medical Necessity Reason Pt with a Central, PICC or Fol: Yes The following are medically ne: Central Line, Barrios Catheter Subjective Review of Systems Jossue Perez he is a 49-year-old male past medical history of hypertension, hyperlipidemia, DVT, 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 The patient mentions he had passage of stool 7 times yesterday which was tarry black in color. Patient mentions he also had abdominal pain, nausea and a few episodes of vomiting for the last 2 days. He denies any fever,weakness or weight loss. He reports history of perforated duodenal ulcer s/p exp lap with prolonged ICU stay complicated with sepsis from cholecystitis s/p tracheostomy and removal. On arrival to the hospital, his hemoglobin was 4.2 and he had to be transfused with 2 units of PRBCs. He was kept NPO and NG tube placed. GI was consulted and they recommended continuing with IV Protonix drip scheduled patient for EGD on 03/13/2025. Patient was seen and examined on the bedside. Status post extubation and on 8 L oxygen through oxymizer . The patient is anxious, tachypneic, BP 150/99. Pending swallow evaluation and we are continuing IV Ativan 0.5 mg q.12h p.r.n., clonidine 0.2 mg PO TID, losartan 100 mg p.o. daily and IV labetalol 20 mg q.4 PRN. downgraded to telemetry. Objective vital signs Vital Sign Date Time Temp Pulse Resp B/P (MAP) Pulse Ox O2 Delivery O2 Flow Rate FiO2 03/30/25 15:00 87 32 150/99 (116) 100 03/30/25 14:00 Oxymizer 8 N/A 03/30/25 12:00 98.2 98.2 Total Intake and Output 03/29/25 03/29/25 03/30/25 15:00 23:00 07:00 Intake Total 250.2 ml 430 ml 255 ml Output Total 1050 ml 1351 ml Balance 250.2 ml -620 ml -1096 ml medications Current Medications Medications Dose Ordered Sig/Wally Route Start Time Stop Time Status Last Admin Dose Admin Ondansetron HCl 4 mg Q4HP PRN IV 03/12/25 00:00 Midazolam HCl 100 ml @ 1 mls/hr Q24H IV 03/16/25 16:30 03/23/25 14:52 2 MLS/HR Diagnostic Test (Pha) 1 strip Q6HR 03/16/25 18:00 03/30/25 12:00 1 STRIP Insulin Human Regular FOLLOW SLIDING SCALE Q6HR SC 03/16/25 18:00 03/29/25 17:51 2 UNITS Dextrose 50 ml UD IV 03/16/25 17:15 Folic Acid 1 mg/ Dextrose 50.2 ml @ 200.8 mls/ hr DAILY INJ 03/17/25 10:00 03/30/25 09:27 200.8 MLS/HR Thiamine HCl 100 mg DAILY IV 03/18/25 10:00 03/30/25 09:20 100 MG Atorvastatin Calcium 40 mg HS PO 03/17/25 22:00 Hold Sucralfate 1 gm QID@0600,1130,1700,2200 GT 03/23/25 17:00 03/30/25 11:42 1 GM Pantoprazole Sodium 40 mg BID IV 03/26/25 22:00 03/30/25 09:20 40 MG Ipratropium Vestal 0.5 mg Q6HR NEB 03/28/25 12:00 03/30/25 12:48 0.5 MG Levalbuterol HCl 0.625 mg Q6HR NEB 03/28/25 12:00 03/30/25 12:49 0.625 MG Nicotine 1 patch DAILY TD 03/29/25 10:00 03/30/25 09:40 1 PATCH Lorazepam 0.5 mg [id number] PRN IV 03/28/25 19:30 03/29/25 19:55 0.5 MG Clonidine HCl 0.2 mg TID PO 03/29/25 14:00 03/30/25 14:13 0.2 MG Furosemide 20 mg BIDD IV 03/29/25 18:00 03/30/25 05:54 20 MG Losartan Potassium 100 mg DAILY PO 03/30/25 10:00 03/30/25 10:33 100 MG Enteral Nutritional Formula 1,000 ml 40ML/HR GT 03/30/25 10:00 Labetalol HCl 20 mg Q4HP PRN IV 03/30/25 16:00 UNV Examination Physical examination: General Appearance: Alert, Oriented X3, anxious, on oxymizer 8L HEENT: Atraumatic, PERRLA, EOMI, Mucous membrane moist/pink Respiratory: Bilateral crackles. Cardiovascular: Regular rate, Normal S1, Normal S2, No murmurs, no chest wall tenderness Abdominal: Normal bowel sounds, Soft, No tenderness, No hepatospenomegaly, No masses Extremities: No clubbing, No cyanosis, No edema, Normal pulses, No tenderness/swelling Skin: No rashes, No breakdown, No significant lesion Neuro: Normal speech, right-sided weakness, Strength at 5/5 X2 ext, Normal tone, Sensation intact, grossly intact cranial nerves Psych/Mental Status: could not be assessed laboratory and microbiology Laboratory Tests 03/30/25 12:00 03/30/25 02:58 Test 03/30/25 02:58 Range/Units Serum Glucose 98 74-106 mg/dL Microbiology Date/Time Source Procedure Growth Status 03/16/25 16:36 Nose MRSA Screen - Final Complete 03/16/25 16:06 Sputum Gram Stain - Final Complete 03/16/25 16:06 Respiratory Culture - Final Stenotrophomonas maltophilia Escherichia coli Presumptive Milady albicans Complete 03/13/25 11:53 Stool Stool Culture - Final Complete 03/13/25 11:53 Stool Shiga Toxin I & II - Final Complete 03/12/25 11:55 Urine - Barrios Port Urine Culture - Final Complete 03/11/25 15:36 Blood Blood Culture - Final NO GROWTH AFTER 5 DAYS OF INCUBATION. Complete Labs and/or images reviewed: Labs reviewed by me, Image(s) reviewed by me Problem List/Assessment/Plan Problem List/Assessment/Plan Assessment and plan : NEURO: Acute metabolic encephalopathy secondary to acute ischemic stroke Acute or subacute ischemic stroke Hypertensive emergency Acute anxiety RASS score: - 1 - CT head without contrast demonstrated new medial right parieto-occipital focal region of diminished parenchymal attenuation within the medial right parietal occipital lobes. This is concerning for an acute to subacute infarct with chronic multifocal lacunar infarct - MRI showed Infarcts involving multiple vascular territories involved medial right occipital lobe, posterior left occipital lobe, and left lopes radiata white matter tracts. Few additional tiny foci of diffusion restriction at the anterior right parietal cortex. - Neurology on board - hold aspirin and Plavix for now because of GI bleeding - atorvastatin 40 mg p.o. daily - Clonidine 0.2 mg p.o.tid, losartan 100 mg daily and IV hydralazine 20 mg q.4h PRN - IV Ativan 0.5 mg q.12 PRN CARDIOVASCULAR: Chronic diastolic heart failure with preserved ejection fraction - Echo on 11/12 demonstrated EF 65%, MILD LVH AND MILD LV DIASTOLIC DYSFUNCTION - elevated BNP - CxR showed Bilateral interstitial opacities, small left basilar consolidation and pleural effusion PULMONARY: Acute hypoxic respiratory failure S/P extubation GASTROINTESTINAL: Acute GI bleed upper vs lower Partial small Intestinal obstruction likely secondary to fecal impaction. Cholelithiasis C diff positive Transaminitis likely secondary to low hepatic perfusion Elevated alkaline phosphatase -CT abdomen/pelvis showed low-grade distal partial obstruction due to fecal retention. - Gastrograffin study showed Contrast is identified within the colon by 3 hours. No evidence of bowel obstruction. -EGD on 03/13/25 showed 1-2 cm sliding-type hiatal hernia with severe grade C linear erosive esophagitis with esophageal ulcers extending into the distal 15 cm of the esophagus persistent duodenal bulb ulcer seen just inside the pyloric opening which was large coalescing with a visible sutures; there was no active bleeding or visible vessel but there was acute on chronic inflammation deformity of the postbulbar duodenal area and but there was area of debris and ongoing chronic ulceration inflammation and the endoscope was not advanced beyond this area mild gastritis and some old coffee-ground within the stomach - GB U/S demonstrated gallbladder wall thickening and pericholecystic edema, concerning for cholecystitis and dilated CBD up to 16 mm. - MRCP scan demonstrated Choledocholithiasis in the mid to distal common bile duct predominantly dependently. - NPO - Tube feeding at 40 mL/hours - IV Protonix 40 mg bid - Carafate suspension 1 g q.i.d. - Zofran 4 mg IV q.4 PRN - GI and surgery are on the board - Monitor Hand H, transfuse if hemoglobin less than 7 GENITOURINARY: GIOVANI on CKD likely hemodynamically mediated/VMN resolved - Monitor BMP METABOLIC: Hypernatremia Hypokalemia Hypophosphatemia - monitor BMP HEME: Severe microcytic hypochromic anemia due to GI bleeding Iron deficiency due to above Bilateral superficial thrombophlebitis - Patient received 4 units of PRBC - Monitor H&H INFECTIOUS DISEASE: Acute C diff infection - hold po vanc because of upper GI bleeding Nicotine dependence - Nicotine dependence 21 g/24 hours DIET: TPN, Tube feeding DVT prophylax: SCD GI prophylaxis: Protonix Bowel regimen: Code status: Full code LINES/DRAINS/ACCESS: Extubated on 03/27/25 IV access: Right IJ placed on 03/16/2025 Drips: tube feeding Barrios catheter: DISPOSITION: ICU Patient's status discussed with RN, Critical care time spent more than 72 minutes, including patient care, chart review, and updating the family. Excluding any procedures. Case discussed with Dr. Garcia Plan discussed with: Spouse, Other My Orders My Orders Orders - SKY DASH Procedure Category Date Status Time Nutritional PHA 03/30/25 In Process Supplements (Vital 10:00 Transfer Orders XFER 03/30/25 Transmitted 14:47 Labetalol Hcl PHA 03/30/25 Logged (Labetalol Hcl) 16:00 Dietary Evaluation Review Recommendations by RD: Increase Calorie Intake, PPN/TPN Comments: Pt meets criteria 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 based on severe wt loss 35lb/24% in 5 month, intake <50% estimated requirement x 5 days, severe muscle wasting and fat depletion Nutrition Recommendation: 1) PPN/TPN if NPO continues 2) Advance to soft diet as medically feasible 3) Ensure Enlive 240ml TID if pt resumes PO diet 4) Monitor NPO status, lab values, weight trend, and I/O Expected Outcomes/Goals: Intake to meet >75% estimated needs GI symptoms to improve Fu 2-3 days Food and Nutrition Intake (Sev: <50% est energy req 5days Interpretation of weight loss: >10% in 6 months Body Fat Depletion (Severe): Mod to Severe Depletion Muscle Mass (Severe): Mod to Severe Depletion Protein Calorie Malnutrition: Severe Is there a minimum of two crit: Yes CC Plasma Assessment Blood Product Administration S: [id number] Date of Service: Mar 30, 2025 Billing Provider: DIANA GARCIA MD Common Visit Codes: 35164-[id number] CARE 30-74 MIN SKY DASH Mar 30, 2025 16:07 DIANA GARCIA MD Mar 30, 2025 16:20
[2025-03-30 18:36] LABS: Hematocrit 30.0 % (41.0-53.0); Hemoglobin 9.7 g/dL (13.5-17.5)
--- NOTE | 2025-03-30 18:47 | DVHPN2 ---
Progress Note Date Seen: Mar 30, 2025 Resident Creating Document: RICHARD TOSCANO RESIDENT Has the PT tested + for MRSA If YES, has PT been informed?: No Medical Necessity Reason Pt with a Central, PICC or Fol: Yes The following are medically ne: Central Line, Barrios Catheter Subjective Review of Systems Patient seen and examined at bedside Continues to have poor cough reflex and is on feeding with a NG tube Swallow evaluation to be done later On Oxymizer, chest x-ray shows left pleural effusion with a pulmonary vascular congestion Objective vital signs Vital Sign Date Time Temp Pulse Resp B/P (MAP) Pulse Ox O2 Delivery O2 Flow Rate FiO2 03/30/25 18:06 158/94 03/30/25 18:00 25 97 Oxymizer 8 N/A 03/30/25 18:00 90 03/30/25 12:00 98.2 98.2 Total Intake and Output 03/29/25 03/29/25 03/30/25 15:00 23:00 07:00 Intake Total 250.2 ml 430 ml 255 ml Output Total 1050 ml 1351 ml Balance 250.2 ml -620 ml -1096 ml medications Current Medications Medications Dose Ordered Sig/Wally Route Start Time Stop Time Status Last Admin Dose Admin Ondansetron HCl 4 mg Q4HP PRN IV 03/12/25 00:00 Midazolam HCl 100 ml @ 1 mls/hr Q24H IV 03/16/25 16:30 03/23/25 14:52 2 MLS/HR Diagnostic Test (Pha) 1 strip Q6HR 03/16/25 18:00 03/30/25 12:00 1 STRIP Insulin Human Regular FOLLOW SLIDING SCALE Q6HR SC 03/16/25 18:00 03/29/25 17:51 2 UNITS Dextrose 50 ml UD IV 03/16/25 17:15 Folic Acid 1 mg/ Dextrose 50.2 ml @ 200.8 mls/ hr DAILY INJ 03/17/25 10:00 03/30/25 09:27 200.8 MLS/HR Thiamine HCl 100 mg DAILY IV 03/18/25 10:00 03/30/25 09:20 100 MG Atorvastatin Calcium 40 mg HS PO 03/17/25 22:00 Hold Sucralfate 1 gm QID@0600,1130,1700,2200 GT 03/23/25 17:00 03/30/25 17:10 1 GM Pantoprazole Sodium 40 mg BID IV 03/26/25 22:00 03/30/25 09:20 40 MG Ipratropium [place] 0.5 mg Q6HR NEB 03/28/25 12:00 03/30/25 12:48 0.5 MG Levalbuterol HCl 0.625 mg Q6HR NEB 03/28/25 12:00 03/30/25 12:49 0.625 MG Nicotine 1 patch DAILY TD 03/29/25 10:00 03/30/25 09:40 1 PATCH Lorazepam 0.5 mg [id number] PRN IV 03/28/25 19:30 03/29/25 19:55 0.5 MG Clonidine HCl 0.2 mg TID PO 03/29/25 14:00 03/30/25 14:13 0.2 MG Furosemide 20 mg BIDD IV 03/29/25 18:00 03/30/25 18:06 20 MG Losartan Potassium 100 mg DAILY PO 03/30/25 10:00 03/30/25 10:33 100 MG Enteral Nutritional Formula 1,000 ml 40ML/HR GT 03/30/25 10:00 Labetalol HCl 20 mg Q4HP PRN IV 03/30/25 16:00 Examination Gen - mild conjunctival pallor, no scleral icterus Skin - Patients skin is warm and dry. HEENT - normocephalic, atraumatic, dry mucous membranes. Neck - supple, no lymphadenopathy Pulmonary - B/L equal air entry cardiovascular - regular S1,S2 heard GI - soft abdomen. Bowel sounds normoactive Neurological - Patient extubated, A&O x3 and is following commands laboratory and microbiology Laboratory Tests 03/30/25 18:00 03/30/25 12:00 03/30/25 02:58 Test 03/30/25 02:58 Range/Units Serum Glucose 98 74-106 mg/dL Microbiology Date/Time Source Procedure Growth Status 03/16/25 16:36 Nose MRSA Screen - Final Complete 03/16/25 16:06 Sputum Gram Stain - Final Complete 03/16/25 16:06 Respiratory Culture - Final Stenotrophomonas maltophilia Escherichia coli Presumptive Milady albicans Complete 03/13/25 11:53 Stool Stool Culture - Final Complete 03/13/25 11:53 Stool Shiga Toxin I & II - Final Complete 03/12/25 11:55 Urine - [place] Urine Culture - Final Complete 03/11/25 15:36 Blood Blood Culture - Final NO GROWTH AFTER 5 DAYS OF INCUBATION. Complete Problem List/Assessment/Plan Problem List/Assessment/Plan Assessment Upper GI bleeding likely from persistent duodenal ulcer Duodenal ulcer disease History of perforated duodenal ulcer s/p surgical repair Hiatal hernia Severe grade C linear erosive esophagitis with esophageal ulcers C. difficile colitis Elevated liver enzymes Severe anemia New multiple stroke in different arterial territories (MRI 03/18/25) Multiple chronic strokes GIOVANI on CKD likely due to VMN, improving Transaminitis Pneumonia Choledocholithiasis Plan Continue on Protonix 40 IV b.i.d. Continue on tube feedings, swallow evaluation to be done Monitor H&H, transfuse if HGB less than 7 LFTs improving IV metronidazole and ceftriaxone Hold off on anticoagulation and antiplatelet drugs because of likely active GI bleed Patient was found to have a CBD stone with mild dilation of the CBD, based on endoscopy patient may not be able to undergo ERCP and would benefit from surgical consultation for possible cholecystectomy and CBD exploration Plan discussed with Dr. Stoddard Plan discussed with: Patient, Other (JASPER Wren) Dietary Evaluation Review Recommendations by RD: Increase Calorie Intake, PPN/TPN Comments: Pt meets criteria 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 based on severe wt loss 35lb/24% in 5 month, intake <50% estimated requirement x 5 days, severe muscle wasting and fat depletion Nutrition Recommendation: 1) PPN/TPN if NPO continues 2) Advance to soft diet as medically feasible 3) Ensure Enlive 240ml TID if pt resumes PO diet 4) Monitor NPO status, lab values, weight trend, and I/O Expected Outcomes/Goals: Intake to meet >75% estimated needs GI symptoms to improve Fu 2-3 days Food and Nutrition Intake (Sev: <50% est energy req 5days Interpretation of weight loss: >10% in 6 months Body Fat Depletion (Severe): Mod to Severe Depletion Muscle Mass (Severe): Mod to Severe Depletion Protein Calorie Malnutrition: Severe Is there a minimum of two crit: Yes CC Plasma Assessment Blood Product Administration S: [id number] RICHARD TOSCANO RESIDENT Mar 30, 2025 18:47
[2025-03-30] MEDS: GLYCOPYRROLATE 0.2 MG/ML 1ML VIAL IV SCH (21:36)
--- NOTE | 2025-03-30 23:33 | DVHPN2 ---
Subjective DOS: 03/30/2025 Patient seen and examined at bedside. Remains on supplemental oxygen Overnight events reviewed Changes from previous H/P or p: No Changes Eyes: No Pain, No Vision change, No Conjunctivae inflammation, No Eyelid inflammation, No Other, No Redness ENT: No Ear pain, No Ear discharge, No Nose pain, No Nose discharge, No Nose congestion, No Mouth pain, No Mouth swelling, No Throat pain, No Throat swelling, No Other Cardiovascular: No Chest Pain, No Palpitations, No Orthopnea, No Paroxysmal Noc. Dyspnea, No Edema, No Lt Headedness, No Other Respiratory: No Cough, No Dry, No Shortness of breath, No SOB with excertion, No Wheezing, No Hemoptysis, No Pleuritic Pain, No Sputum, No Other Gastrointestinal: Melena Musculoskeletal: No other, No neck pain, No shoulder pain, No arm pain, No back pain, No hand pain, No leg pain, No foot pain Skin: No Rash, No Lesions, No Jaundice, No Bruising, No Other Objective Vitals Vital Signs Date Time Temp Pulse Resp B/P (MAP) Pulse Ox O2 Delivery O2 Flow Rate FiO2 03/30/25 22:00 18 100 Oxymizer 5 30 30 03/30/25 22:00 97 03/30/25 22:00 147/97 (114) 03/30/25 20:00 97.3 97.3 Intake/Output Intake and Output 03/30/25 07:00 Intake Total 935.2 ml Output Total 2401 ml Balance -1465.8 ml Intake Oral 190 ml IV Total 500.2 ml Tube Feeding 245 ml Output Urine Total 2400 ml Stool Total 1 ml # Bowel Movements 1 Exam Gen.: Patient lying in bed in no apparent distress. On supplemental oxygen. Head: Normocephalic, atraumatic. Eyes: EOMI/PERRLA. Ears: Normal hearing. Normal anatomy. Neck/trachea: Trachea midline, supple. Nose: Normal external anatomy. Mouth: Moist mucous membranes. Chest: Decreased air entry bilaterally. No wheezing or rhonchi. Cardiovascular: Positive S1, positive S2. Regular rate and rhythm. Abdomen: Positive bowel sounds in all 4 quadrants. Soft, non-tender, non- distended. : Deferred. Rectal: Deferred. Skin: Warm, dry. Intact. Extremities: 2+ radial pulses bilaterally. No lower extremity edema. Neuro: Awake, alert, oriented x3. No gross motor or sensory deficits. Cranial nerves II through XII intact. Gait not assessed. Medications Current Medications Medications Dose Ordered Sig/Wally Route Start Time Stop Time Status Last Admin Dose Admin Ondansetron HCl 4 mg Q4HP PRN IV 03/12/25 00:00 Midazolam HCl 100 ml @ 1 mls/hr Q24H IV 03/16/25 16:30 03/23/25 14:52 2 MLS/HR Diagnostic Test (Pha) 1 strip Q6HR 03/16/25 18:00 03/30/25 18:55 1 STRIP Insulin Human Regular FOLLOW SLIDING SCALE Q6HR SC 03/16/25 18:00 03/29/25 17:51 2 UNITS Dextrose 50 ml UD IV 03/16/25 17:15 Folic Acid 1 mg/ Dextrose 50.2 ml @ 200.8 mls/ hr DAILY INJ 03/17/25 10:00 03/30/25 09:27 200.8 MLS/HR Thiamine HCl 100 mg DAILY IV 03/18/25 10:00 03/30/25 09:20 100 MG Atorvastatin Calcium 40 mg HS PO 03/17/25 22:00 Hold Sucralfate 1 gm QID@0600,1130,1700,2200 GT 03/23/25 17:00 03/30/25 21:34 1 GM Pantoprazole Sodium 40 mg BID IV 03/26/25 22:00 03/30/25 21:34 40 MG Ipratropium [place] 0.5 mg Q6HR NEB 03/28/25 12:00 03/30/25 18:58 0.5 MG Levalbuterol HCl 0.625 mg Q6HR NEB 03/28/25 12:00 03/30/25 18:58 0.625 MG Nicotine 1 patch DAILY TD 03/29/25 10:00 03/30/25 09:40 1 PATCH Lorazepam 0.5 mg [id number] PRN IV 03/28/25 19:30 03/29/25 19:55 0.5 MG Clonidine HCl 0.2 mg TID PO 03/29/25 14:00 03/30/25 21:34 0.2 MG Furosemide 20 mg BIDD IV 03/29/25 18:00 03/30/25 18:06 20 MG Losartan Potassium 100 mg DAILY PO 03/30/25 10:00 03/30/25 10:33 100 MG Enteral Nutritional Formula 1,000 ml 40ML/HR GT 03/30/25 10:00 Labetalol HCl 20 mg Q4HP PRN IV 03/30/25 16:00 Glycopyrrolate 0.2 mg TID IV 03/30/25 22:00 03/30/25 21:36 0.2 MG Laboratory Results Laboratory Tests 03/30/25 02:58 03/30/25 12:00 03/30/25 18:00 Chemistry Test 03/30/25 02:58 Albumin 3.1 g/dL (3.2-4.8) L Calcium Level 8.6 mg/dL (8.7-10.4) L Magnesium Level 2.0 mg/dL (1.6-2.6) Total Protein 7.0 g/dL (5.7-8.2) LFT Test 03/30/25 02:58 Alanine Aminotransferase (ALT) 67 U/L (7-40) H Alkaline Phosphatase 457 U/L (46-116) H Aspartate Amino Transferase (AST) 42 U/L (13-40) H Total Bilirubin 0.7 mg/dL (0.2-1.0) Urinalysis Test 03/12/25 05:00 03/12/25 10:20 03/17/25 06:30 Urine Color Light-yellow (Yellow) Urine Clarity Clear (Clear) Urine pH 5.5 (5.0-9.0) Urine Specific [place] 1.013 (1.001-1.035) Urine Protein Trace (Negative) H Urine Ketones Trace (Negative) Urine Blood Negative /uL (Negative) Urine Nitrite Negative (Negative) Urine Bilirubin Negative (Negative) Urine Urobilinogen Normal mg/dL (Negative) Urine Leukocyte Esterase Negative /uL (Negative) Urine RBC <1 /hpf (0 - 3) Urine Microscopic WBC < 1 /HPF (0-3) Urine Squamous Epithelial Cells None seen /hpf (<5) Urine Bacteria None seen /hpf (None Seen) Urine Glucose Normal mg/dL (Normal) Urine Protein/Creatinine Ratio 2.26 Urine Total Protein 23.6 mg/dL (1-14) H Urine Creatinine 56.14 mg/dL (30.0-125.0) Urine Sodium 13 mmol/L (40-220) L Blood Gas Results Test 03/30/25 07:51 Arterial Blood pH 7.517 (7.350-7.450) FiO2 % 40.0 Microbiology Microbiology Date/Time Source Procedure Growth Status 03/16/25 16:36 Nose MRSA Screen - Final Complete 03/16/25 16:06 Sputum Gram Stain - Final Complete 03/16/25 16:06 Respiratory Culture - Final Stenotrophomonas maltophilia Escherichia coli Presumptive Milady albicans Complete 03/13/25 11:53 Stool Stool Culture - Final Complete 03/13/25 11:53 Stool Shiga Toxin I & II - Final Complete 03/12/25 11:55 Urine - [place] Urine Culture - Final Complete 03/11/25 15:36 Blood Blood Culture - Final NO GROWTH AFTER 5 DAYS OF INCUBATION. Complete Assessment/Plan Assessment/Plan Impression: Acute hypoxic respiratory failure Dependence on supplemental oxygen Acute metabolic encephalopathy Multiple strokes Chronic diastolic heart failure with preserved EF GI hemorrhage Anemia GIOVANI on CKD Events: Patient remains on supplemental oxygen On 3 LPM NC Taper O2 as tolerated. CXR today shows stable pulmonary venous congestion. Stable small left-sided pleural effusion with dense atelectasis/consolidation at the left lung base. Increased secretions Glycopyrrolate 0.2 mg IVP x1 given. Continue on ipratropium 0.5 mg q.6 hours Poor cough reflex Continue NG tube feeds Monitor H&H - Hgb currently stable at 9.7 g/dL Transfuse if Hgb less than 7.0 g/dL Continue sucralfate + Protonix BID FOBT positive GI recommendations appreciated. Hold off on anticoagulation and antiplatelet drugs because of likely active GI bleed Continue bronchodilators Continue antibiotics Incentive spirometry Blood pressure control - on antihypertensive Pain control Avoid oversedation Tube feeds for nutritional support MRCP on 03/29/25 for dilated CBD and elevated alk-phos, MRCP suggestive of a mid CBD stone Right upper quadrant ultrasound showed evidence of gallbladder sludge and inflammation Labs and imaging reviewed. Rest of plan as noted below. Plan: S/p extubation on 03/27/25 On supplemental oxygen Titrate to keep O2 sats above 92%. Continue antibiotics. Follow up cultures. Pressors as necessary for hemodynamic support Titrate to keep mean arterial pressure greater than 65 mmHg. Monitor hemoglobin Transfuse if less than 7.0 g/dL. NGT to LIS Protonix drip F/u GI and Surgery recs Accu-Cheks, ISS PRN Monitor renal function Monitor electrolytes. Supplement as necessary. Monitor ins and outs. Maintain euvolemia. TPN for nutritional support Counseled against vaping and marijuana use. GI prophylaxis. DVT prophylaxis. Prognosis: Poor given patient's multiple co-morbidities. Condition: Critical Rest of plan per hospitalist and other consultants. A total of 35 minutes of critical care time was spent reviewing the patient record, examining the patient, making a diagnostic and therapeutic plan, discussing this plan with the medical personnel, following up on diagnostic studies and following the patient for clinical stability excluding any and all procedures. At least 50% of this time was spent in direct, [id number] contact. Thank you, Dr. Khoury, for allowing me to participate in this patient's care. Further recommendations will depend on the patient's clinical course. Please do not hesitate to contact me if you have any questions or concerns. This medical document was created using an electronic medical record system with [employer] dictation system. Although these documentations are being carefully reviewed, there may still be some phonetic and typographical changes. The errors are purely typographical, due to imperfection on the software program, and do not reflect any compromise in the patient's medical care. Plan discussed with: Other (RN) My Orders Orders - ARIE LOPEZ MD Procedure Category Date Status Time Nasal Tracheal Suction RT 03/30/25 Logged 20:17 Glycopyrrolate PHA 03/30/25 In Process Injection (Robin[place] 22:00 Visit Coding Pulmonary Billing Provider: ARIE LOPEZ MD Date of Service if different f: Mar 30, 2025 Common Visit Codes: [id number] INP/OBS CARE(HIGH), [id number] CARE 30-74 MIN ARIE LOPEZ MD Mar 30, 2025 23:32
[2025-03-31] VITALS (34 sets, daily range): BP systolic 123–166; BP diastolic 77–108; PULSE 76–108; RESP 16–25; TEMP 97.5–98.5; O2SAT 96–100
[2025-03-31 04:46] LABS: Anion Gap 16 (5-15); BUN/Creatinine Ratio 26.2 (10.0-20.0); Bilirubin, Total 0.6 mg/dL (0.2-1.0); Calcium 8.7 mg/dL (8.7-10.4); Carbon Dioxide 29 mmol/L (20-31); Chloride 104 mmol/L (98-107); Potassium 4.1 mmol/L (3.5-5.1); Total Protein 7.0 g/dL (5.7-8.2)
[2025-03-31 04:48] LABS: Alanine Aminotransferase 62 U/L (7-40); Albumin 3.1 g/dL (3.2-4.8); Alkaline Phosphatase 428 U/L (46-116); Blood Urea Nitrogen 34 mg/dL (9-23); Glucose 110 mg/dL (74-106); Sodium 149 mmol/L (136-145)
--- NOTE | 2025-03-31 10:49 | DVHPN2 ---
Progress Note - Dictate Date Seen: Mar 31, 2025 Has the PT tested + for MRSA If YES, has PT been informed?: No Medical Necessity Reason Pt with a Central, PICC or Fol: Yes The following are medically ne: Central Line, Barrios Catheter Subjective Mr. Perez is a 49 years old right-handed gentleman with a history of hypertension, dyslipidemia, multiple strokes, DVT, he was brought to the [facility] on 03/11/2025 with a chief complaint of diarrhea, history is obtained from his , the chart review I saw him on 08/23/2023 for TIA, 10/27/2024 for encephalopathy I have seen and examined the patient, I have talked to his nurse, he keeps improving, stronger,, he is oriented to person, place, he knows year and month, his speech is very soft and weak, he follows verbal commands, he can move bilateral arms and legs Stool occult blood, 03/13/2025, 03/29/2025: Positive UDS, 03/12/2025: Negative Plasma alcohol, 03/12/2025: <3 Urinalysis, 03/12/2025: WBC: One, urine leukocyte esterase: Negative ABG, 03/16/25: Hypoxia, respiratory acidosis WBC/Hb/PLT'/MCV, 03/16/25: 10.l 6/7.9/339/82.4 Na, 03/11/2025: 129, 03/12/2025: 130, 129, 03/15/25: 145, 03/16/25: 142 BUNs/CR, 08/22/2023: 15/1.45, 03/11/2025: 55/1.77, 03/13/2025: 43/1.58, 02/2725: 65/2.56 GFR, 08/22/2023: 59 TBI/AST/ALT/AP: 0.8/269/450/398 TG/CHO L/LDL/HDL, 08/2023: 136/166/111/39 Vitamin B12, 03/12/25: 852 Folic acid, 03/12/2025: 12.28 TSH, 08/23/2023: 4.25 Ultrasound, 03/24/2025: Gallbladder entirely distended with sludge with gallbladder wall thickening and pericholecystic edema, concerning for cholecystitis. Recommend surgical consultation HIDA scan. Dilated common bile duct measuring 16 mm which can be further evaluated with MRCP. Echogenic liver which can be seen with hepatic steatosis, cirrhosis. Right pleural effusion Extremity venous study, right arm, 11/09/2024: Thrombus is seen in the cephalic vein in the forearm. DONAL, 08/23/2023: 1. No evidence of intracardiac source of embolus in the study conducted today. 2. Normal valves without significant masses or change vegetations were discernible. 3. No evidence of intra-atrial shunting by bubble study and color Doppler. 4. Mild atherosclerotic plaquing was visualized in the arch of the aorta without evidence of dissection in the visualized part EGD, 03/13/2025: 1. 1-2 cm sliding-type hiatal hernia with severe grade C linear erosive esophagitis with esophageal ulcers extending into the distal 15 cm of the esophagus 2. Patient had a persistent duodenal bulb ulcer seen just inside the pyloric opening which was large coalescing with a visible sutures; there was no active bleeding or visible vessel but there was acute on chronic inflammation 3. Patient had deformity of the postbulbar duodenal area and I was able to see the 2nd part of the duodenum but there was area of debris and ongoing chronic ulceration inflammation and the endoscope was not advanced beyond this area 3. Patient had mild gastritis and some old coffee-ground within the stomach Chest x-ray, 03/12/2025: Mild chronic appearing left basilar pulmonary airspace disease and possible small pleural effusion Chest x-ray, 03/13/2025: 1. Enteric tube terminates in the stomach. 2. Worsening bilateral interstitial and alveolar opacities. Chest x-ray, : Endotracheal tube and right IJ approach central venous catheters are in satisfactory position. Trace uewx-jwvgpty-hmyd-right pleural effusions with right retro lower lung zone linear atelectasis/ fluid within the fissure. CT head, 10/24/2024: 1. No intracranial hemorrhage or mass effect. 2. Pzdn-vw-fsbnkpim chronic microvascular ischemic changes. 3. Old bilateral basal ganglia lacunar infarcts. 4. Small bilateral mastoid effusions. CT head, 03/17/2025: 1. New medial right parieto-occipital focal region of diminished parenchymal attenuation within the medial right parietal occipital lobes. This is concerning for an acute to subacute infarct. Recommend further evaluation with MRI. 2. No evidence of acute intracranial hemorrhage, mass effect or hydrocephalus. 3. Chronic sequelae of microangiopathy and atrophic cortical volume loss.4. Multifocal chronic lacunar infarcts as outlined above. CT abdomen/pelvis, 10/04/2024: 1. Extensive intra-abdominal free air concerning for perforated viscus. Surgical consultation is recommended. 2. Enteritis is seen in multiple loops of small bowel in the left hemiabdomen. 3. Moderate abdominopelvic ascites. 4. Small right pleural effusion. CTA neck, head, 08/22/2023:1. CTA head demonstrates no evidence of large vessel occlusion, aneurysm, or significant stenosis. 2. CTA neck demonstrates no evidence of carotid or vertebral dissection or significant stenosis. 3. No noncontrast CT head was performed. 4. Additional findings as detailed above MRI head, 08/23/2023: No acute infarct, intracranial hemorrhage, mass effect, or hydrocephalus. Moderate periventricular and deep subcortical white matter T2 hyperintensities which are nonspecific, but most likely related to sequela of chronic microvascular ischemic changes (I have reviewed the MRI films with our in-house radiologist, Dr. Black, the patient had bilateral multiple subacute/chronic infarcts) MRI head, 11/01/2024: No acute cerebrovascular ischemia. Whsj-go-miubcanc chronic microvascular ischemic changes. Bilateral mastoid effusions. Old bilateral basal ganglia / lopes radiata infarcts. MR head, 03/16/2025: Infarcts involving multiple vascular territories as described. vital signs Vital Sign Date Time Temp Pulse Resp B/P (MAP) Pulse Ox O2 Delivery O2 Flow Rate FiO2 03/31/25 10:05 166/100 03/31/25 10:00 20 99 Nasal Cannula* 2 28 03/31/25 10:00 89 03/31/25 04:00 97.5 97.5 Total Intake and Output 03/30/25 03/30/25 03/31/25 15:00 23:00 07:00 Intake Total 150.2 ml 280 ml 580 ml Output Total 925 ml 675 ml Balance 150.2 ml -645 ml -95 ml medications Current Medications Medications Dose Ordered Sig/Wally Route Start Time Stop Time Status Last Admin Dose Admin Ondansetron HCl 4 mg Q4HP PRN IV 03/12/25 00:00 Midazolam HCl 100 ml @ 1 mls/hr Q24H IV 03/16/25 16:30 03/23/25 14:52 2 MLS/HR Diagnostic Test (Pha) 1 strip Q6HR 03/16/25 18:00 03/31/25 06:12 1 STRIP Insulin Human Regular FOLLOW SLIDING SCALE Q6HR SC 03/16/25 18:00 03/29/25 17:51 2 UNITS Dextrose 50 ml UD IV 03/16/25 17:15 Folic Acid 1 mg/ Dextrose 50.2 ml @ 200.8 mls/ hr DAILY INJ 03/17/25 10:00 03/31/25 10:19 200.8 MLS/HR Thiamine HCl 100 mg DAILY IV 03/18/25 10:00 03/31/25 10:04 100 MG Atorvastatin Calcium 40 mg HS PO 03/17/25 22:00 Hold Sucralfate 1 gm QID@0600,1130,1700,2200 GT 03/23/25 17:00 03/31/25 06:11 1 GM Pantoprazole Sodium 40 mg BID IV 03/26/25 22:00 03/31/25 10:03 40 MG Ipratropium [place] 0.5 mg Q6HR NEB 03/28/25 12:00 03/31/25 07:39 0.5 MG Levalbuterol HCl 0.625 mg Q6HR NEB 03/28/25 12:00 03/31/25 07:39 0.625 MG Nicotine 1 patch DAILY TD 03/29/25 10:00 03/31/25 10:05 1 PATCH Lorazepam 0.5 mg [id number] PRN IV 03/28/25 19:30 03/29/25 19:55 0.5 MG Clonidine HCl 0.2 mg TID PO 03/29/25 14:00 03/31/25 06:12 0.2 MG Furosemide 20 mg BIDD IV 03/29/25 18:00 03/31/25 06:12 20 MG Losartan Potassium 100 mg DAILY PO 03/30/25 10:00 03/31/25 10:05 100 MG Enteral Nutritional Formula 1,000 ml 40ML/HR GT 03/30/25 10:00 Labetalol HCl 20 mg Q4HP PRN IV 03/30/25 16:00 Glycopyrrolate 0.2 mg TID IV 03/30/25 22:00 03/31/25 06:11 0.2 MG objective The patient is well-nourished and well-developed with no distress. MENTAL STATUS: Subjective CRANIAL NERVES: Pupils are equal, round and reactive. EOMs full and conjugate. Facial sensation intact in all three divisions bilaterally. Mandibular strength intact. Facial muscles symmetrical and strength intact. SENSATION: Okay to touch MOTOR: Normal tone in the upper and lower extremity. Normal muscle bulk. No fasciculations. Muscle power: Right arm: 3/5, right le/5, left arm: 4/5, left le-3/5 REFLEXES: Deep tendon reflexes are symmetrical, 3-4/4 in the knees and 4/4 in the ankles. No pathological reflexes. CEREBELLAR/COORDINATION: Deferred GAIT/STATION: deferred. laboratory and microbiology Laboratory Tests 03/31/25 03:30 03/30/25 18:00 03/30/25 02:58 Test 03/31/25 03:30 Range/Units Serum Glucose 110 H 74-106 mg/dL Problem List Altered mental status Metabolic encephalopathy secondary to sepsis, septic shock, hypernatremia Hypoxic encephalopathy Peptic ulcer, GI bleeding, anemia Respiratory failure Right hemiparesis Acute multiple strokes in different arterial territories (MRI 03/18/25) Multiple chronic strokes Maybe secondary to history methamphetamine, cocaine, alcohol use History of alcohol abuse History of cocaine, methamphetamine abuse Assessment/Plan Monitoring Supportive treatment IIV antibiotics Aspirin 81 mg daily later Lipitor later TPN Thiamine supplementation Folic acid supplementation GI service on case Nephrology service on case More recommended per clinical course This medical document was created using an electronic medical record system with [employer] dictation system. Although this document has been carefully reviewed, there may still be some phonetic and typographical errors. These areas are purely typographical due to imperfect Prognosis poor Dietary Evaluation Review Recommendations by RD: Increase Calorie Intake, PPN/TPN Comments: Pt meets criteria 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 based on severe wt loss 35lb/24% in 5 month, intake <50% estimated requirement x 5 days, severe muscle wasting and fat depletion Nutrition Recommendation: 1) PPN/TPN if NPO continues 2) Advance to soft diet as medically feasible 3) Ensure Enlive 240ml TID if pt resumes PO diet 4) Monitor NPO status, lab values, weight trend, and I/O Expected Outcomes/Goals: Intake to meet >75% estimated needs GI symptoms to improve Fu 2-3 days Food and Nutrition Intake (Sev: <50% est energy req 5days Interpretation of weight loss: >10% in 6 months Body Fat Depletion (Severe): Mod to Severe Depletion Muscle Mass (Severe): Mod to Severe Depletion Protein Calorie Malnutrition: Severe Is there a minimum of two crit: Yes Plan discussed with: Other Total Time (mins): 35 CC Plasma Assessment Blood Product Administration S: [id number] LEANDRO BLACK MD Mar 31, 2025 10:49
[2025-03-31] MEDS: FREE WATER GT SCH (11:53)
--- NOTE | 2025-03-31 14:35 | DVHPNRES ---
Progress Note Date Seen: Mar 31, 2025 Resident Creating Document: SKY DASH RESIDENT Has the PT tested + for MRSA If YES, has PT been informed?: No Medical Necessity Reason Pt with a Central, PICC or Fol: Yes The following are medically ne: Central Line, Barrios Catheter Subjective Review of Systems Jossue Perez he is a 49-year-old male past medical history of hypertension, hyperlipidemia, DVT, 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 The patient mentions he had passage of stool 7 times yesterday which was tarry black in color. Patient mentions he also had abdominal pain, nausea and a few episodes of vomiting for the last 2 days. He denies any fever,weakness or weight loss. He reports history of perforated duodenal ulcer s/p exp lap with prolonged ICU stay complicated with sepsis from cholecystitis s/p tracheostomy and removal. On arrival to the hospital, his hemoglobin was 4.2 and he had to be transfused with 2 units of PRBCs. He was kept NPO and NG tube placed. GI was consulted and they recommended continuing with IV Protonix drip scheduled patient for EGD on 03/13/2025. Patient was seen and examined on the bedside. Status post extubation and on 2 L oxygen through nasal canula . Failed swallow evaluation today and continuing tube feeding at 40 mL/hours. Physiotherapy on board and recommended doing PT 2 times a day. H&H is stable were continuing IV Ativan 0.5 mg q.12h p.r.n. for anxiety, clonidine 0.2 mg t.i.d., losartan 100 mg p.o. daily for hypertension. Downgraded to telemetry Objective vital signs Vital Sign Date Time Temp Pulse Resp B/P (MAP) Pulse Ox O2 Delivery O2 Flow Rate FiO2 03/31/25 14:25 146/90 03/31/25 12:59 89 19 100 03/31/25 12:54 2.0 03/31/25 10:00 Nasal Cannula* 28 03/31/25 04:00 97.5 97.5 Total Intake and Output 03/30/25 03/30/25 03/31/25 15:00 23:00 07:00 Intake Total 150.2 ml 280 ml 580 ml Output Total 925 ml 675 ml Balance 150.2 ml -645 ml -95 ml medications Current Medications Medications Dose Ordered Sig/Wally Route Start Time Stop Time Status Last Admin Dose Admin Ondansetron HCl 4 mg Q4HP PRN IV 03/12/25 00:00 Midazolam HCl 100 ml @ 1 mls/hr Q24H IV 03/16/25 16:30 03/23/25 14:52 2 MLS/HR Diagnostic Test (Pha) 1 strip Q6HR 03/16/25 18:00 03/31/25 12:03 1 STRIP Insulin Human Regular FOLLOW SLIDING SCALE Q6HR SC 03/16/25 18:00 03/31/25 12:03 2 UNITS Dextrose 50 ml UD IV 03/16/25 17:15 Folic Acid 1 mg/ Dextrose 50.2 ml @ 200.8 mls/ hr DAILY INJ 03/17/25 10:00 03/31/25 10:19 200.8 MLS/HR Thiamine HCl 100 mg DAILY IV 03/18/25 10:00 03/31/25 10:04 100 MG Atorvastatin Calcium 40 mg HS PO 03/17/25 22:00 Hold Sucralfate 1 gm QID@0600,1130,1700,2200 GT 03/23/25 17:00 03/31/25 11:45 1 GM Pantoprazole Sodium 40 mg BID IV 03/26/25 22:00 03/31/25 10:03 40 MG Ipratropium [place] 0.5 mg Q6HR NEB 03/28/25 12:00 03/31/25 12:48 0.5 MG Levalbuterol HCl 0.625 mg Q6HR NEB 03/28/25 12:00 03/31/25 12:49 0.625 MG Nicotine 1 patch DAILY TD 03/29/25 10:00 03/31/25 10:05 1 PATCH Lorazepam 0.5 mg [id number] PRN IV 03/28/25 19:30 03/29/25 19:55 0.5 MG Clonidine HCl 0.2 mg TID PO 03/29/25 14:00 03/31/25 14:25 0.2 MG Furosemide 20 mg BIDD IV 03/29/25 18:00 03/31/25 06:12 20 MG Losartan Potassium 100 mg DAILY PO 03/30/25 10:00 03/31/25 10:05 100 MG Enteral Nutritional Formula 1,000 ml 40ML/HR GT 03/30/25 10:00 Labetalol HCl 20 mg Q4HP PRN IV 03/30/25 16:00 Glycopyrrolate 0.2 mg TID IV 03/30/25 22:00 03/31/25 14:29 0.2 MG Purified Water 200 ml Q6HR GT 03/31/25 12:00 03/31/25 11:53 200 ML Examination Physical examination: General Appearance: Alert, Oriented X3, anxious, on oxymizer 8L HEENT: Atraumatic, PERRLA, EOMI, Mucous membrane moist/pink Respiratory: Bilateral crackles. Cardiovascular: Regular rate, Normal S1, Normal S2, No murmurs, no chest wall tenderness Abdominal: Normal bowel sounds, Soft, No tenderness, No hepatospenomegaly, No masses Extremities: No clubbing, No cyanosis, No edema, Normal pulses, No tenderness/swelling Skin: No rashes, No breakdown, No significant lesion Neuro: Normal speech, right-sided weakness, Strength at 5/5 X2 ext, Normal tone, Sensation intact, grossly intact cranial nerves Psych/Mental Status: could not be assessed laboratory and microbiology Laboratory Tests 03/31/25 03:30 03/30/25 18:00 03/30/25 02:58 Test 03/31/25 03:30 Range/Units Serum Glucose 110 H 74-106 mg/dL Microbiology Date/Time Source Procedure Growth Status 03/16/25 16:36 Nose MRSA Screen - Final Complete 03/16/25 16:06 Sputum Gram Stain - Final Complete 03/16/25 16:06 Respiratory Culture - Final Stenotrophomonas maltophilia Escherichia coli Presumptive Milady albicans Complete 03/13/25 11:53 Stool Stool Culture - Final Complete 03/13/25 11:53 Stool Shiga Toxin I & II - Final Complete 03/12/25 11:55 Urine - Barrios [place] Urine Culture - Final Complete 03/11/25 15:36 Blood Blood Culture - Final NO GROWTH AFTER 5 DAYS OF INCUBATION. Complete Labs and/or images reviewed: Labs reviewed by me, Image(s) reviewed by me Problem List/Assessment/Plan Problem List/Assessment/Plan Assessment and plan : NEURO: Acute metabolic encephalopathy secondary to acute ischemic stroke Acute or subacute ischemic stroke Hypertensive emergency Acute anxiety RASS score: - 1 - CT head without contrast demonstrated new medial right parieto-occipital focal region of diminished parenchymal attenuation within the medial right parietal occipital lobes. This is concerning for an acute to subacute infarct with chronic multifocal lacunar infarct - MRI showed Infarcts involving multiple vascular territories involved medial right occipital lobe, posterior left occipital lobe, and left lopes radiata white matter tracts. Few additional tiny foci of diffusion restriction at the anterior right parietal cortex. - Neurology on board - hold aspirin and Plavix for now because of GI bleeding - atorvastatin 40 mg p.o. daily - Clonidine 0.2 mg p.o.tid, losartan 100 mg daily and IV hydralazine 20 mg q.4h PRN - IV Ativan 0.5 mg q.12 PRN CARDIOVASCULAR: Chronic diastolic heart failure with preserved ejection fraction - Echo on 11/12 demonstrated EF 65%, MILD LVH AND MILD LV DIASTOLIC DYSFUNCTION - elevated BNP - CxR showed Bilateral interstitial opacities, small left basilar consolidation and pleural effusion - IV Lasix 20 mg b.i.d. PULMONARY: Acute hypoxic respiratory failure S/P extubation GASTROINTESTINAL: Acute GI bleed upper vs lower Partial small Intestinal obstruction likely secondary to fecal impaction. Cholelithiasis C diff positive Transaminitis likely secondary to low hepatic perfusion Elevated alkaline phosphatase -CT abdomen/pelvis showed low-grade distal partial obstruction due to fecal retention. - Gastrograffin study showed Contrast is identified within the colon by 3 hours. No evidence of bowel obstruction. -EGD on 03/13/25 showed 1-2 cm sliding-type hiatal hernia with severe grade C linear erosive esophagitis with esophageal ulcers extending into the distal 15 cm of the esophagus persistent duodenal bulb ulcer seen just inside the pyloric opening which was large coalescing with a visible sutures; there was no active bleeding or visible vessel but there was acute on chronic inflammation deformity of the postbulbar duodenal area and but there was area of debris and ongoing chronic ulceration inflammation and the endoscope was not advanced beyond this area mild gastritis and some old coffee-ground within the stomach - GB U/S demonstrated gallbladder wall thickening and pericholecystic edema, concerning for cholecystitis and dilated CBD up to 16 mm. - MRCP scan demonstrated Choledocholithiasis in the mid to distal common bile duct predominantly dependently. - NPO - failed swallow evaluation today - Tube feeding at 40 mL/hours - IV Protonix 40 mg bid - Carafate suspension 1 g q.i.d. - Zofran 4 mg IV q.4 PRN - GI and surgery are on the board - Monitor Hand H, transfuse if hemoglobin less than 7 GENITOURINARY: GIOVANI on CKD likely hemodynamically mediated/VMN resolved - Monitor BMP METABOLIC: Hypernatremia Hypokalemia Hypophosphatemia - monitor BMP HEME: Severe microcytic hypochromic anemia due to GI bleeding Iron deficiency due to above Bilateral superficial thrombophlebitis - Patient received 4 units of PRBC - Monitor H&H INFECTIOUS DISEASE: Acute C diff infection - hold po vanc because of upper GI bleeding Nicotine dependence - Nicotine dependence 21 g/24 hours DIET: TPN, Tube feeding DVT prophylax: SCD GI prophylaxis: Protonix Bowel regimen: Code status: Full code LINES/DRAINS/ACCESS: Extubated on 03/27/25 Drips: tube feeding Barrios catheter: DISPOSITION: ICU Patient's status discussed with RN, Critical care time spent more than 73 minutes, including patient care, chart review, and updating the family. Excluding any procedures. Case discussed with Dr. Garcia Plan discussed with: Spouse, Other (RN) My Orders My Orders Orders - SKY DASH RESIDENT Procedure Category Date Status Time Transfer Orders XFER 03/30/25 Transmitted 14:47 Labetalol Hcl PHA 03/30/25 In Process (Labetalol Hcl) 16:00 D/C Tlc CINTHIA 03/30/25 In Process 16:42 Communication Order ORDERS 03/31/25 Transmitted 14:09 Dietary Evaluation Review Recommendations by RD: Increase Calorie Intake, PPN/TPN Comments: Pt meets criteria 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 based on severe wt loss 35lb/24% in 5 month, intake <50% estimated requirement x 5 days, severe muscle wasting and fat depletion Nutrition Recommendation: 1) PPN/TPN if NPO continues 2) Advance to soft diet as medically feasible 3) Ensure Enlive 240ml TID if pt resumes PO diet 4) Monitor NPO status, lab values, weight trend, and I/O Expected Outcomes/Goals: Intake to meet >75% estimated needs GI symptoms to improve Fu 2-3 days Food and Nutrition Intake (Sev: <50% est energy req 5days Interpretation of weight loss: >10% in 6 months Body Fat Depletion (Severe): Mod to Severe Depletion Muscle Mass (Severe): Mod to Severe Depletion Protein Calorie Malnutrition: Severe Is there a minimum of two crit: Yes CC Plasma Assessment Blood Product Administration S: [id number] Date of Service: Mar 31, 2025 Billing Provider: DIANA GARCIA MD Common Visit Codes: 07656-[id number] CARE 30-74 MIN SKY DASH RESIDENT Mar 31, 2025 14:35
--- NOTE | 2025-03-31 17:08 | DVHPN2 ---
Progress Note Date Seen: Mar 31, 2025 Resident Creating Document: ITALOJACKIEAnaYVESKEILA RESIDENT Has the PT tested + for MRSA If YES, has PT been informed?: No Medical Necessity Reason Pt with a Central, PICC or Fol: Yes The following are medically ne: Barrios Catheter Subjective Review of Systems Patient seen and examined at the bedside Failed swallow evaluation , has a very poor cough reflex Tolerating NG feedings well Denies any abdominal pain H&H is stable Objective vital signs Vital Sign Date Time Temp Pulse Resp B/P (MAP) Pulse Ox O2 Delivery O2 Flow Rate FiO2 03/31/25 15:43 147/93 03/31/25 14:00 94 20 100 03/31/25 14:00 Nasal Cannula* 2 28 03/31/25 13:00 98.4 98.4 Total Intake and Output 03/30/25 03/30/25 03/31/25 15:00 23:00 07:00 Intake Total 150.2 ml 280 ml 580 ml Output Total 925 ml 675 ml Balance 150.2 ml -645 ml -95 ml medications Current Medications Medications Dose Ordered Sig/Wally Route Start Time Stop Time Status Last Admin Dose Admin Ondansetron HCl 4 mg Q4HP PRN IV 03/12/25 00:00 Midazolam HCl 100 ml @ 1 mls/hr Q24H IV 03/16/25 16:30 03/23/25 14:52 2 MLS/HR Diagnostic Test (Pha) 1 strip Q6HR 03/16/25 18:00 03/31/25 12:03 1 STRIP Insulin Human Regular FOLLOW SLIDING SCALE Q6HR SC 03/16/25 18:00 03/31/25 12:03 2 UNITS Dextrose 50 ml UD IV 03/16/25 17:15 Folic Acid 1 mg/ Dextrose 50.2 ml @ 200.8 mls/ hr DAILY INJ 03/17/25 10:00 03/31/25 10:19 200.8 MLS/HR Thiamine HCl 100 mg DAILY IV 03/18/25 10:00 03/31/25 10:04 100 MG Atorvastatin Calcium 40 mg HS PO 03/17/25 22:00 Hold Sucralfate 1 gm QID@0600,1130,1700,2200 GT 03/23/25 17:00 03/31/25 11:45 1 GM Pantoprazole Sodium 40 mg BID IV 03/26/25 22:00 03/31/25 10:03 40 MG Ipratropium [place] 0.5 mg Q6HR NEB 03/28/25 12:00 03/31/25 12:48 0.5 MG Levalbuterol HCl 0.625 mg Q6HR NEB 03/28/25 12:00 03/31/25 12:49 0.625 MG Nicotine 1 patch DAILY TD 03/29/25 10:00 03/31/25 10:05 1 PATCH Lorazepam 0.5 mg [id number] PRN IV 03/28/25 19:30 03/29/25 19:55 0.5 MG Clonidine HCl 0.2 mg TID PO 03/29/25 14:00 03/31/25 14:25 0.2 MG Furosemide 20 mg BIDD IV 03/29/25 18:00 03/31/25 06:12 20 MG Losartan Potassium 100 mg DAILY PO 03/30/25 10:00 03/31/25 10:05 100 MG Enteral Nutritional Formula 1,000 ml 40ML/HR GT 03/30/25 10:00 Labetalol HCl 20 mg Q4HP PRN IV 03/30/25 16:00 Glycopyrrolate 0.2 mg TID IV 03/30/25 22:00 03/31/25 14:29 0.2 MG Purified Water 200 ml Q6HR GT 03/31/25 12:00 03/31/25 11:53 200 ML Examination Gen - mild conjunctival pallor, no scleral icterus Skin - Patients skin is warm and dry. HEENT - normocephalic, atraumatic, dry mucous membranes. Neck - supple, no lymphadenopathy Pulmonary - B/L equal air entry cardiovascular - regular S1,S2 heard GI - soft abdomen. Bowel sounds normoactive Neurological - Patient extubated, A&O x3 and is following commands, but has difficulty speaking laboratory and microbiology Laboratory Tests 03/31/25 03:30 03/30/25 18:00 03/30/25 02:58 Test 03/31/25 03:30 Range/Units Serum Glucose 110 H 74-106 mg/dL Microbiology Date/Time Source Procedure Growth Status 03/16/25 16:36 Nose MRSA Screen - Final Complete 03/16/25 16:06 Sputum Gram Stain - Final Complete 03/16/25 16:06 Respiratory Culture - Final Stenotrophomonas maltophilia Escherichia coli Presumptive Milady albicans Complete 03/13/25 11:53 Stool Stool Culture - Final Complete 03/13/25 11:53 Stool Shiga Toxin I & II - Final Complete 03/12/25 11:55 Urine - [place] Urine Culture - Final Complete 03/11/25 15:36 Blood Blood Culture - Final NO GROWTH AFTER 5 DAYS OF INCUBATION. Complete Problem List/Assessment/Plan Problem List/Assessment/Plan Assessment Upper GI bleeding likely from persistent duodenal ulcer Duodenal ulcer disease History of perforated duodenal ulcer s/p surgical repair Hiatal hernia Severe grade C linear erosive esophagitis with esophageal ulcers C. difficile colitis Elevated liver enzymes Severe anemia New multiple stroke in different arterial territories (MRI 03/18/25) Multiple chronic strokes GIOVANI on CKD likely due to VMN, improving Transaminitis Pneumonia Choledocholithiasis Plan Continue on Protonix 40 IV b.i.d. Continue on tube feedings, swallow evaluation to be done Monitor H&H, transfuse if HGB less than 7 LFTs improving IV metronidazole and ceftriaxone Hold off on anticoagulation and antiplatelet drugs because of likely active GI bleed Patient was found to have a CBD stone with mild dilation of the CBD, based on endoscopy patient may not be able to undergo ERCP and would benefit from surgical consultation for possible cholecystectomy and CBD exploration With the patient continues to have multiple bowel movements with the C diff, may benefit from vancomycin enema Plan discussed with Dr. Stoddard Plan discussed with: Patient, Other (JASPER Harmon) Dietary Evaluation Review Recommendations by RD: Increase Calorie Intake, PPN/TPN Comments: Pt meets criteria 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 based on severe wt loss 35lb/24% in 5 month, intake <50% estimated requirement x 5 days, severe muscle wasting and fat depletion Nutrition Recommendation: 1) PPN/TPN if NPO continues 2) Advance to soft diet as medically feasible 3) Ensure Enlive 240ml TID if pt resumes PO diet 4) Monitor NPO status, lab values, weight trend, and I/O Expected Outcomes/Goals: Intake to meet >75% estimated needs GI symptoms to improve Fu 2-3 days Food and Nutrition Intake (Sev: <50% est energy req 5days Interpretation of weight loss: >10% in 6 months Body Fat Depletion (Severe): Mod to Severe Depletion Muscle Mass (Severe): Mod to Severe Depletion Protein Calorie Malnutrition: Severe Is there a minimum of two crit: Yes CC Plasma Assessment Blood Product Administration S: [id number] RICHARD TOSCANO RESIDENT Mar 31, 2025 17:08
--- NOTE | 2025-03-31 23:21 | DVHPN2 ---
Subjective DOS: 03/31/2025 Patient seen and examined at bedside. Remains on supplemental oxygen Overnight events reviewed Changes from previous H/P or p: No Changes Eyes: No Pain, No Vision change, No Conjunctivae inflammation, No Eyelid inflammation, No Other, No Redness ENT: No Ear pain, No Ear discharge, No Nose pain, No Nose discharge, No Nose congestion, No Mouth pain, No Mouth swelling, No Throat pain, No Throat swelling, No Other Cardiovascular: No Chest Pain, No Palpitations, No Orthopnea, No Paroxysmal Noc. Dyspnea, No Edema, No Lt Headedness, No Other Respiratory: No Cough, No Dry, No Shortness of breath, No SOB with excertion, No Wheezing, No Hemoptysis, No Pleuritic Pain, No Sputum, No Other Gastrointestinal: Melena Musculoskeletal: No other, No neck pain, No shoulder pain, No arm pain, No back pain, No hand pain, No leg pain, No foot pain Skin: No Rash, No Lesions, No Jaundice, No Bruising, No Other Objective Vitals Vital Signs Date Time Temp Pulse Resp B/P (MAP) Pulse Ox O2 Delivery O2 Flow Rate FiO2 03/31/25 21:07 150/100 03/31/25 20:00 21 100 Nasal Cannula* 2 28 03/31/25 18:19 92 03/31/25 17:00 98.1 98.1 Intake/Output Intake and Output 03/31/25 07:00 Intake Total 1010.2 ml Output Total 1600 ml Balance -589.8 ml Intake Oral 260 ml IV Total 150.2 ml Tube Feeding 600 ml Output Urine Total 1600 ml # Bowel Movements 4 Exam Gen.: Patient lying in bed in no apparent distress. On supplemental oxygen. Head: Normocephalic, atraumatic. Eyes: EOMI/PERRLA. Ears: Normal hearing. Normal anatomy. Neck/trachea: Trachea midline, supple. Nose: Normal external anatomy. Mouth: Moist mucous membranes. Chest: Decreased air entry bilaterally. No wheezing or rhonchi. Cardiovascular: Positive S1, positive S2. Regular rate and rhythm. Abdomen: Positive bowel sounds in all 4 quadrants. Soft, non-tender, non- distended. : Deferred. Rectal: Deferred. Skin: Warm, dry. Intact. Extremities: 2+ radial pulses bilaterally. No lower extremity edema. Neuro: Awake, alert, oriented x3. No gross motor or sensory deficits. Cranial nerves II through XII intact. Gait not assessed. Medications Current Medications Medications Dose Ordered Sig/Wally Route Start Time Stop Time Status Last Admin Dose Admin Ondansetron HCl 4 mg Q4HP PRN IV 03/12/25 00:00 Midazolam HCl 100 ml @ 1 mls/hr Q24H IV 03/16/25 16:30 03/23/25 14:52 2 MLS/HR Diagnostic Test (Pha) 1 strip Q6HR 03/16/25 18:00 03/31/25 18:00 1 STRIP Insulin Human Regular FOLLOW SLIDING SCALE Q6HR SC 03/16/25 18:00 03/31/25 12:03 2 UNITS Dextrose 50 ml UD IV 03/16/25 17:15 Folic Acid 1 mg/ Dextrose 50.2 ml @ 200.8 mls/ hr DAILY INJ 03/17/25 10:00 03/31/25 10:19 200.8 MLS/HR Thiamine HCl 100 mg DAILY IV 03/18/25 10:00 03/31/25 10:04 100 MG Atorvastatin Calcium 40 mg HS PO 03/17/25 22:00 Hold Sucralfate 1 gm QID@0600,1130,1700,2200 GT 03/23/25 17:00 03/31/25 21:06 1 GM Pantoprazole Sodium 40 mg BID IV 03/26/25 22:00 03/31/25 21:06 40 MG Ipratropium [place] 0.5 mg Q6HR NEB 03/28/25 12:00 03/31/25 18:18 0.5 MG Levalbuterol HCl 0.625 mg Q6HR NEB 03/28/25 12:00 03/31/25 18:18 0.625 MG Nicotine 1 patch DAILY TD 03/29/25 10:00 03/31/25 10:05 1 PATCH Lorazepam 0.5 mg [id number] PRN IV 03/28/25 19:30 03/29/25 19:55 0.5 MG Clonidine HCl 0.2 mg TID PO 03/29/25 14:00 03/31/25 21:07 0.2 MG Furosemide 20 mg BIDD IV 03/29/25 18:00 03/31/25 17:39 20 MG Losartan Potassium 100 mg DAILY PO 03/30/25 10:00 03/31/25 10:05 100 MG Enteral Nutritional Formula 1,000 ml 40ML/HR GT 03/30/25 10:00 Labetalol HCl 20 mg Q4HP PRN IV 03/30/25 16:00 Glycopyrrolate 0.2 mg TID IV 03/30/25 22:00 03/31/25 21:06 0.2 MG Purified Water 200 ml Q6HR GT 03/31/25 12:00 03/31/25 17:39 200 ML Laboratory Results Laboratory Tests 03/30/25 02:58 03/30/25 18:00 03/31/25 03:30 Chemistry Test 03/31/25 03:30 Albumin 3.1 g/dL (3.2-4.8) L Calcium Level 8.7 mg/dL (8.7-10.4) Total Protein 7.0 g/dL (5.7-8.2) LFT Test 03/31/25 03:30 Alanine Aminotransferase (ALT) 62 U/L (7-40) H Alkaline Phosphatase 428 U/L (46-116) H Aspartate Amino Transferase (AST) 34 U/L (13-40) Total Bilirubin 0.6 mg/dL (0.2-1.0) Urinalysis Test 03/12/25 05:00 03/12/25 10:20 03/17/25 06:30 Urine Color Light-yellow (Yellow) Urine Clarity Clear (Clear) Urine pH 5.5 (5.0-9.0) Urine Specific [place] 1.013 (1.001-1.035) Urine Protein Trace (Negative) H Urine Ketones Trace (Negative) Urine Blood Negative /uL (Negative) Urine Nitrite Negative (Negative) Urine Bilirubin Negative (Negative) Urine Urobilinogen Normal mg/dL (Negative) Urine Leukocyte Esterase Negative /uL (Negative) Urine RBC <1 /hpf (0 - 3) Urine Microscopic WBC < 1 /HPF (0-3) Urine Squamous Epithelial Cells None seen /hpf (<5) Urine Bacteria None seen /hpf (None Seen) Urine Glucose Normal mg/dL (Normal) Urine Protein/Creatinine Ratio 2.26 Urine Total Protein 23.6 mg/dL (1-14) H Urine Creatinine 56.14 mg/dL (30.0-125.0) Urine Sodium 13 mmol/L (40-220) L Microbiology Microbiology Date/Time Source Procedure Growth Status 03/16/25 16:36 Nose MRSA Screen - Final Complete 03/16/25 16:06 Sputum Gram Stain - Final Complete 03/16/25 16:06 Respiratory Culture - Final Stenotrophomonas maltophilia Escherichia coli Presumptive Milady albicans Complete 03/13/25 11:53 Stool Stool Culture - Final Complete 03/13/25 11:53 Stool Shiga Toxin I & II - Final Complete 03/12/25 11:55 Urine - [place] Urine Culture - Final Complete 03/11/25 15:36 Blood Blood Culture - Final NO GROWTH AFTER 5 DAYS OF INCUBATION. Complete Assessment/Plan Assessment/Plan Impression: Acute hypoxic respiratory failure Dependence on supplemental oxygen Acute metabolic encephalopathy Multiple strokes Chronic diastolic heart failure with preserved EF GI hemorrhage Anemia GIOVANI on CKD Events: Patient remains on supplemental oxygen On 2 LPM NC Taper O2 as tolerated. CXR on 03/30/25 shows stable pulmonary venous congestion. Stable small left- sided pleural effusion with dense atelectasis/consolidation at the left lung base. Failed swallow evaluation, has a very poor cough reflex Tolerating NG feedings well Denies any abdominal pain H&H is stable Glycopyrrolate 0.2 mg IVP for increased secretions. Continue on ipratropium 0.5 mg q.6 hours Monitor hemoglobin Transfuse if Hgb less than 7.0 g/dL Continue sucralfate + Protonix BID FOBT positive GI recommendations appreciated. Hold off on anticoagulation and antiplatelet drugs because of likely active GI bleed Continue bronchodilators Continue antibiotics Incentive spirometry Blood pressure control Pain control Avoid oversedation Tube feeds for nutritional support MRCP on 03/29/25 for dilated CBD and elevated alk-phos, MRCP suggestive of a mid CBD stone Right upper quadrant ultrasound showed evidence of gallbladder sludge and inflammation Labs and imaging reviewed. Rest of plan as noted below. Plan: S/p extubation on 03/27/25 On supplemental oxygen Titrate to keep O2 sats above 92%. Continue antibiotics. Follow up cultures. Pressors as necessary for hemodynamic support Titrate to keep mean arterial pressure greater than 65 mmHg. Monitor hemoglobin Transfuse if less than 7.0 g/dL. NGT to LIS Protonix drip F/u GI and Surgery recs Accu-Cheks, ISS PRN Monitor renal function Monitor electrolytes. Supplement as necessary. Monitor ins and outs. Maintain euvolemia. TPN for nutritional support Counseled against vaping and marijuana use. GI prophylaxis. DVT prophylaxis. Prognosis: Poor given patient's multiple co-morbidities. Condition: Critical Rest of plan per hospitalist and other consultants. A total of 35 minutes of critical care time was spent reviewing the patient record, examining the patient, making a diagnostic and therapeutic plan, discussing this plan with the medical personnel, following up on diagnostic studies and following the patient for clinical stability excluding any and all procedures. At least 50% of this time was spent in direct, [id number] contact. Thank you, Dr. Khoury, for allowing me to participate in this patient's care. Further recommendations will depend on the patient's clinical course. Please do not hesitate to contact me if you have any questions or concerns. This medical document was created using an electronic medical record system with [employer] dictation system. Although these documentations are being carefully reviewed, there may still be some phonetic and typographical changes. The errors are purely typographical, due to imperfection on the software program, and do not reflect any compromise in the patient's medical care. Plan discussed with: Other (RN) Visit Coding Pulmonary Billing Provider: ARIE LOPEZ MD Date of Service if different f: Mar 31, 2025 Common Visit Codes: 26473-[id number] INP/OBS CARE(HIGH), [id number] CARE 30-74 MIN ARIE LOPEZ MD Mar 31, 2025 23:21
[2025-04-01] VITALS (32 sets, daily range): BP systolic 117–163; BP diastolic 79–112; PULSE 75–106; RESP 14–24; TEMP 97.8–98.9; O2SAT 97–100
[2025-04-01 04:34] LABS: Hematocrit 30.7 % (41.0-53.0); Hemoglobin 9.8 g/dL (13.5-17.5)
[2025-04-01 04:47] LABS: Chloride 104 mmol/L (98-107); Potassium 3.7 mmol/L (3.5-5.1)
[2025-04-01 04:48] LABS: Anion Gap 13 (5-15)
[2025-04-01 04:49] LABS: Calcium 8.7 mg/dL (8.7-10.4); Carbon Dioxide 33 mmol/L (20-31); Sodium 150 mmol/L (136-145)
[2025-04-01 04:53] LABS: BUN/Creatinine Ratio 33.6 (10.0-20.0)
[2025-04-01 04:55] LABS: Blood Urea Nitrogen 39 mg/dL (9-23); Glucose 108 mg/dL (74-106)
[2025-04-01] MEDS: D5W 5% 1,000 ML IV ONE (06:33)
[2025-04-01] MEDS: FREE WATER GT SCH (08:30)
--- NOTE | 2025-04-01 10:30 | DVHPN2 ---
Progress Note - Dictate Date Seen: Apr 01, 2025 Has the PT tested + for MRSA If YES, has PT been informed?: No Medical Necessity Reason Pt with a Central, PICC or Fol: Yes The following are medically ne: Barrios Catheter Subjective Mr. Perez is a 49 years old right-handed gentleman with a history of hypertension, dyslipidemia, multiple strokes, DVT, he was brought to the [facility] on 03/11/2025 with a chief complaint of diarrhea, history is obtained from his , the chart review I saw him on 08/23/2023 for TIA, 10/27/2024 for encephalopathy I have seen and examined the patient, I have talked to his nurse, he keeps improving, stronger, he is oriented to person, place, he knows year and month, his speech is still very soft and weak, he follows verbal commands, he can move bilateral arms and legs Stool occult blood, 03/13/2025, 03/29/2025: Positive UDS, 03/12/2025: Negative Plasma alcohol, 03/12/2025: <3 Urinalysis, 03/12/2025: WBC: One, urine leukocyte esterase: Negative ABG, 03/16/25: Hypoxia, respiratory acidosis WBC/Hb/PLT'/MCV, 03/16/25: 10.l 6/7.9/339/82.4 Na, 03/11/2025: 129, 03/12/2025: 130, 129, 03/15/25: 145, 03/16/25: 142 BUNs/CR, 08/22/2023: 15/1.45, 03/11/2025: 55/1.77, 03/13/2025: 43/1.58, 02/2725: 65/2.56 GFR, 08/22/2023: 59 TBI/AST/ALT/AP,: 0.8/269/450/398 TG/CHO L/LDL/HDL, 08/2023: 136/166/111/39 Vitamin B12, 03/12/25: 852 Folic acid, 03/12/2025: 12.28 TSH, 08/23/2023: 4.25 Ultrasound, 03/24/2025: Gallbladder entirely distended with sludge with gallbladder wall thickening and pericholecystic edema, concerning for cholecystitis. Recommend surgical consultation HIDA scan. Dilated common bile duct measuring 16 mm which can be further evaluated with MRCP. Echogenic liver which can be seen with hepatic steatosis, cirrhosis. Right pleural effusion Extremity venous study, right arm, 11/09/2024: Thrombus is seen in the cephalic vein in the forearm. DONAL, 08/23/2023: 1. No evidence of intracardiac source of embolus in the study conducted today. 2. Normal valves without significant masses or change vegetations were discernible. 3. No evidence of intra-atrial shunting by bubble study and color Doppler. 4. Mild atherosclerotic plaquing was visualized in the arch of the aorta without evidence of dissection in the visualized part EGD, 03/13/2025: 1. 1-2 cm sliding-type hiatal hernia with severe grade C linear erosive esophagitis with esophageal ulcers extending into the distal 15 cm of the esophagus 2. Patient had a persistent duodenal bulb ulcer seen just inside the pyloric opening which was large coalescing with a visible sutures; there was no active bleeding or visible vessel but there was acute on chronic inflammation 3. Patient had deformity of the postbulbar duodenal area and I was able to see the 2nd part of the duodenum but there was area of debris and ongoing chronic ulceration inflammation and the endoscope was not advanced beyond this area 3. Patient had mild gastritis and some old coffee-ground within the stomach Chest x-ray, 03/12/2025: Mild chronic appearing left basilar pulmonary airspace disease and possible small pleural effusion Chest x-ray, 03/13/2025: 1. Enteric tube terminates in the stomach. 2. Worsening bilateral interstitial and alveolar opacities. Chest x-ray, : Endotracheal tube and right IJ approach central venous catheters are in satisfactory position. Trace lwsc-[id number]-bnzj-right pleural effusions with right retro lower lung zone linear atelectasis/ fluid within the fissure. CT head, 10/24/2024: 1. No intracranial hemorrhage or mass effect. 2. Narl-ru-rqtunvdn chronic microvascular ischemic changes. 3. Old bilateral basal ganglia lacunar infarcts. 4. Small bilateral mastoid effusions. CT head, 03/17/2025: 1. New medial right parieto-occipital focal region of diminished parenchymal attenuation within the medial right parietal occipital lobes. This is concerning for an acute to subacute infarct. Recommend further evaluation with MRI. 2. No evidence of acute intracranial hemorrhage, mass effect or hydrocephalus. 3. Chronic sequelae of microangiopathy and atrophic cortical volume loss.4. Multifocal chronic lacunar infarcts as outlined above. CT abdomen/pelvis, 10/04/2024: 1. Extensive intra-abdominal free air concerning for perforated viscus. Surgical consultation is recommended. 2. Enteritis is seen in multiple loops of small bowel in the left hemiabdomen. 3. Moderate abdominopelvic ascites. 4. Small right pleural effusion. CTA neck, head, 08/22/2023:1. CTA head demonstrates no evidence of large vessel occlusion, aneurysm, or significant stenosis. 2. CTA neck demonstrates no evidence of carotid or vertebral dissection or significant stenosis. 3. No noncontrast CT head was performed. 4. Additional findings as detailed above MRI head, 08/23/2023: No acute infarct, intracranial hemorrhage, mass effect, or hydrocephalus. Moderate periventricular and deep subcortical white matter T2 hyperintensities which are nonspecific, but most likely related to sequela of chronic microvascular ischemic changes (I have reviewed the MRI films with our in-house radiologist, Dr. Black, the patient had bilateral multiple subacute/chronic infarcts) MRI head, 11/01/2024: No acute cerebrovascular ischemia. Rjke-ri-fluzfhnv chronic microvascular ischemic changes. Bilateral mastoid effusions. Old bilateral basal ganglia / lopes radiata infarcts. MR head, 03/16/2025: Infarcts involving multiple vascular territories as described. vital signs Vital Sign Date Time Temp Pulse Resp B/P (MAP) Pulse Ox O2 Delivery O2 Flow Rate FiO2 04/01/25 10:00 20 100 Nasal Cannula* 2 28 04/01/25 10:00 93 152/103 (119) 04/01/25 07:00 98.0 98.0 Total Intake and Output 03/31/25 03/31/25 04/01/25 15:00 23:00 07:00 Intake Total 50.2 ml 760 ml 706 ml Output Total 701 ml 750 ml Balance 50.2 ml 59 ml -44 ml medications Current Medications Medications Dose Ordered Sig/Wally Route Start Time Stop Time Status Last Admin Dose Admin Ondansetron HCl 4 mg Q4HP PRN IV 03/12/25 00:00 Midazolam HCl 100 ml @ 1 mls/hr Q24H IV 03/16/25 16:30 03/23/25 14:52 2 MLS/HR Diagnostic Test (Pha) 1 strip Q6HR 03/16/25 18:00 04/01/25 05:25 1 STRIP Insulin Human Regular FOLLOW SLIDING SCALE Q6HR SC 03/16/25 18:00 03/31/25 12:03 2 UNITS Dextrose 50 ml UD IV 03/16/25 17:15 Folic Acid 1 mg/ Dextrose 50.2 ml @ 200.8 mls/ hr DAILY INJ 03/17/25 10:00 03/31/25 10:19 200.8 MLS/HR Thiamine HCl 100 mg DAILY IV 03/18/25 10:00 04/01/25 09:41 100 MG Atorvastatin Calcium 40 mg HS PO 03/17/25 22:00 Hold Sucralfate 1 gm QID@0600,1130,1700,2200 GT 03/23/25 17:00 04/01/25 05:35 1 GM Pantoprazole Sodium 40 mg BID IV 03/26/25 22:00 04/01/25 09:41 40 MG Ipratropium [place] 0.5 mg Q6HR NEB 03/28/25 12:00 04/01/25 05:44 0.5 MG Levalbuterol HCl 0.625 mg Q6HR NEB 03/28/25 12:00 04/01/25 05:44 0.625 MG Nicotine 1 patch DAILY TD 03/29/25 10:00 04/01/25 09:41 1 PATCH Lorazepam 0.5 mg Q06JDDL PRN IV 03/28/25 19:30 03/29/25 19:55 0.5 MG Clonidine HCl 0.2 mg TID PO 03/29/25 14:00 04/01/25 06:25 0.2 MG Furosemide 20 mg BIDD IV 03/29/25 18:00 04/01/25 05:34 20 MG Losartan Potassium 100 mg DAILY PO 03/30/25 10:00 04/01/25 09:44 100 MG Enteral Nutritional Formula 1,000 ml 40ML/HR GT 03/30/25 10:00 Labetalol HCl 20 mg Q4HP PRN IV 03/30/25 16:00 Glycopyrrolate 0.2 mg TID IV 03/30/25 22:00 04/01/25 05:34 0.2 MG Purified Water 200 ml Q4HR GT 04/01/25 08:30 04/01/25 10:18 200 ML objective The patient is well-nourished and well-developed with no distress. MENTAL STATUS: Subjective CRANIAL NERVES: Pupils are equal, round and reactive. EOMs full and conjugate. Facial sensation intact in all three divisions bilaterally. Mandibular strength intact. Facial muscles symmetrical and strength intact. SENSATION: Okay to touch MOTOR: Normal tone in the upper and lower extremity. Normal muscle bulk. No fasciculations. Muscle power: Right arm: 2/5, right le/5, left arm: 4/5, left le/5 REFLEXES: Deep tendon reflexes are symmetrical, 3-4/4 in the knees and 4/4 in the ankles. No pathological reflexes. CEREBELLAR/COORDINATION: Deferred GAIT/STATION: deferred. laboratory and microbiology Laboratory Tests 04/01/25 03:30 03/30/25 02:58 Test 04/01/25 03:30 Range/Units Serum Glucose 108 H 74-106 mg/dL Problem List Altered mental status Metabolic encephalopathy secondary to sepsis, septic shock, hypernatremia Hypoxic encephalopathy Peptic ulcer, GI bleeding, anemia Respiratory failure Right hemiparesis Acute multiple strokes in different arterial territories (MRI 03/18/25) Multiple chronic strokes Maybe secondary to history methamphetamine, cocaine, alcohol use History of alcohol abuse History of cocaine, methamphetamine abuse Assessment/Plan Monitoring Supportive treatment IIV antibiotics Aspirin 81 mg daily later Lipitor later TPN Thiamine supplementation Folic acid supplementation GI service on case Nephrology service on case More recommended per clinical course This medical document was created using an electronic medical record system with [employer] dictation system. Although this document has been carefully reviewed, there may still be some phonetic and typographical errors. These areas are purely typographical due to imperfect Prognosis poor Dietary Evaluation Review Recommendations by RD: Increase Calorie Intake, PPN/TPN Comments: Pt meets criteria 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 based on severe wt loss 35lb/24% in 5 month, intake <50% estimated requirement x 5 days, severe muscle wasting and fat depletion Nutrition Recommendation: 1) PPN/TPN if NPO continues 2) Advance to soft diet as medically feasible 3) Ensure Enlive 240ml TID if pt resumes PO diet 4) Monitor NPO status, lab values, weight trend, and I/O Expected Outcomes/Goals: Intake to meet >75% estimated needs GI symptoms to improve Fu 2-3 days Food and Nutrition Intake (Sev: <50% est energy req 5days Interpretation of weight loss: >10% in 6 months Body Fat Depletion (Severe): Mod to Severe Depletion Muscle Mass (Severe): Mod to Severe Depletion Protein Calorie Malnutrition: Severe Is there a minimum of two crit: Yes Plan discussed with: Patient, Other Total Time (mins): 35 CC Plasma Assessment Blood Product Administration S: [id number] LEANDRO BLACK MD Apr 01, 2025 10:30
--- NOTE | 2025-04-01 12:58 | DVHINCON2 ---
Date of service: Apr 01, 2025 Family History: Alcoholism G8 MOTHER Cardiovascular disease G8 MOTHER G8 FATHER FH: heart disease FH: lung cancer Hypertension G8 MOTHER Allergies: Coded Allergies: NO KNOWN ALLERGIES (Unverified , 08/22/23) Home Meds Active Scripts Hydralazine HCl (Hydralazine HCl) 25 Mg Tab, 25 MG PO BID for 30 Days, #60 TAB Prov:[employer] 12/08/24 Labetalol HCl (Labetalol HCl) 200 Mg Tab, 200 MG PO BID for 30 Days, #60 TAB Prov:[employer] 12/08/24 Nifedipine (Nifedipine Er) 60 Mg Tab, 2 TAB PO DAILY, #30 TAB 5 Refills Prov:CHEY[employer]NE [employer] 12/08/24 Pantoprazole Sodium Sesquihydr (Protonix) 40 Mg Tab, 40 MG PO BID for 30 Days, #60 TAB Prov:[employer] 12/08/24 Sucralfate (CARAFATE) 1 Gm Tab, 1 GM OR ACHS for 30 Days, #120 TAB Prov:CHE[employer] 12/08/24 Reported Medications Escitalopram Oxalate (ESCITALOPRAM OXALATE) 10 Mg Tab, 1 TAB PO DAILY for 30 Days, #30 10/06/24 Current Medications Current Medications Medications (Trade) Dose Ordered Sig/Wally Route PRN Reason Start Time Stop Time Status Last Admin Purified Water 200 ml Q4HR GT 04/01/25 08:30 04/01/25 10:18 Vital Signs Vital Signs Date Time Temp Pulse Resp B/P (MAP) Pulse Ox O2 Delivery O2 Flow Rate FiO2 04/01/25 12:00 18 98 Nasal Cannula* 2 28 04/01/25 11:52 85 04/01/25 10:00 152/103 (119) 04/01/25 07:00 98.0 98.0 Labs/Diagnostic Data Labs Test 04/01/25 11:46 04/01/25 03:30 03/31/25 03:30 03/30/25 07:51 Range/Units POC Glucose 119 H 70-106 mg/dl Hemoglobin 9.8 L 13.5-17.5 g/dL Hematocrit 30.7 L 41.0-53.0 % Sodium Level 150 H 136-145 mmol/L Potassium Level 3.7 3.5-5.1 mmol/L Chloride Level 104 98-107 mmol/L Carbon Dioxide Level 33 H 20-31 mmol/L Anion Gap 13 5-15 Blood Urea Nitrogen 39 H 9-23 mg/dL Creatinine 1.16 0.700-1.30 mg/dL Glomerular Filtration Rate Calc 76 >90 mL/min BUN/Creatinine Ratio 33.6 H 10.0-20.0 Serum Glucose 108 H 74-106 mg/dL Calcium Level 8.7 8.7-10.4 mg/dL Total Bilirubin 0.6 0.2-1.0 mg/dL Aspartate Amino Transferase (AST) 34 13-40 U/L Alanine Aminotransferase (ALT) 62 H 7-40 U/L Alkaline Phosphatase 428 H 46-116 U/L Total Protein 7.0 5.7-8.2 g/dL Albumin 3.1 L 3.2-4.8 g/dL Blood Gas Specimen Type Arterial Blood Gas Sample Site Right radial Blood Gas Patient Temperature 37.0 Arterial Blood Date Drawn [id number] Arterial Blood pH 7.517 H 7.350-7.450 Arterial Blood Partial Pressure CO2 31.6 L 35.0-48.0 mmHg Arterial Blood Partial Pressure O2 89.5 83.0-108.0 mmHg Arterial Blood HCO3 25.1 21.0-28.0 mmol/L Arterial Blood Oxygen Saturation 96.6 94.0-98.0 % Arterial Blood Base Excess 2.5 -2.0-3.0 mmol/L Arterial Blood Oxyhemoglobin 96.2 94.0-98.0 % Arterial Blood Carboxyhemoglobin 0.3 L 0.5-1.5 % Arterial Blood Methemoglobin 0.1 0.0-1.5 % Ke Test Yes Blood Gas Total Hemoglobin 10.90 L 13.5-17.5 g/dL Blood Gas Modality High flow FiO2 % 40.0 Test 03/30/25 02:58 03/29/25 20:12 03/29/25 06:40 03/29/25 03:15 Range/Units White Blood Count 9.4 4.4-10.8 10^3/uL Red Blood Count 3.53 L 4.5-5.90 10^6/uL Mean Corpuscular Volume 83.3 80.0-100.0 fL Mean Corpuscular Hemoglobin 27.3 L 28.0-32.0 pg Mean Corpuscular Hemoglobin Concent 32.8 32.0-36.0 g/dL Red Cell Distribution Width 25.7 H 11.8-14.3 % Platelet Count 390 140-450 10^3/uL Mean Platelet Volume 7.9 6.9-10.8 fL Neutrophils (%) (Auto) 77.5 37.0-80.0 % Lymphocytes (%) (Auto) 11.8 10.0-50.0 % Monocytes (%) (Auto) 9.7 0.0-12.0 % Eosinophils (%) (Auto) 0.2 0.0-7.0 % Basophils (%) (Auto) 0.8 0.0-2.0 % Neutrophils # (Auto) 7.3 1.6-8.6 10 ^3/uL Lymphocytes # (Auto) 1.1 0.4-5.4 10 ^3/uL Monocytes # (Auto) 0.9 0-1.3 10 ^3/uL Eosinophils # (Auto) 0 0-0.8 10 ^3/uL Basophils # (Auto) 0.1 0-0.2 10 ^3/uL Nucleated Red Blood Cells 0.0 % Magnesium Level 2.0 1.6-2.6 mg/dL Blood Gas Set Respiration Rate 12.0 Blood Gas EPAP 7 Blood Gas IPAP 16 Stool Occult Blood Positive Negative Stool Occult Blood Sample #2 Negative Stool Occult Blood Sample #3 Negative B-Type Natriuretic Peptide 1867.91 0-100 pg/mL Test 03/29/25 00:53 03/27/25 09:31 03/27/25 08:19 03/27/25 03:02 Range/Units Blood Gas Spontaneous Rate 32 Blood Gas Spontaneous Tidal Volume 500 Blood Gas Pressure Support 8 Blood Gas PEEP or CPAP 5.0 Blood Gas Tidal Volume 500.0 Platelet Estimate Adequate Giant Platelets Few Anisocytosis (manual) Moderate Test 03/26/25 03:00 03/18/25 14:10 03/17/25 14:40 03/17/25 07:41 Range/Units Phosphorus Level 2.5 2.4-5.1 mg/dL Hepatitis A Antibody Total Negative Negative Hepatitis B Surface Antigen Negative Negative Hepatitis B Surface Antibody Negative Negative Hepatitis B Core Total Antibody Negative Negative Hepatitis C Antibody Negative Negative HIV (1&2) Antibody Negative Negative Blood Gas Critical Value Read Back Yes Blood Gas Notified Whom Rishi gunn Blood Gas Notified Time [id number] Blood Gas Notified By [facility] addiction professional Test 03/17/25 06:30 03/16/25 17:45 03/16/25 17:16 03/16/25 14:00 Range/Units Urine Creatinine 56.14 30.0-125.0 mg/dL Urine Sodium 13 L 40-220 mmol/L Specimen [facility] Direct Bilirubin 0.5 H <0.3 mg/dL Triglycerides Level 137 < 150 mg/dL Vitamin D 25-Hydroxy 35.5 30.0-100 ng/mL Blood Gas Liter Flow 4.00 Test 03/16/25 13:59 03/13/25 04:58 03/13/25 03:46 03/12/25 10:20 Range/Units Parathyroid Hormone (Intact) 190.7 H 18.4-80.1 pg/mL Thyroid Stimulating Hormone (TSH) 3.84 0.55-4.78 uIU/mL Ammonia 18 11-32 umol/L Urine Protein/Creatinine Ratio 2.26 Urine Total Protein 23.6 H 1-14 mg/dL Test 03/12/25 05:00 03/12/25 04:28 03/11/25 23:05 03/11/25 17:15 Range/Units Urine Color Light-yellow Yellow Urine Clarity Clear Clear Urine pH 5.5 5.0-9.0 Urine Specific [place] 1.013 1.001-1.035 Urine Protein Trace H Negative Urine Ketones Trace Negative Urine Blood Negative Negative /uL Urine Nitrite Negative Negative Urine Bilirubin Negative Negative Urine Urobilinogen Normal Negative mg/dL Urine Leukocyte Esterase Negative Negative /uL Urine RBC <1 0 - 3 /hpf Urine Microscopic WBC < 1 0-3 /HPF Urine Squamous Epithelial Cells None seen <5 /hpf Urine Bacteria None seen None Seen /hpf Urine Glucose Normal Normal mg/dL Urine Opiates Screen Neg NEGATIVE Urine Fentanyl Screen Neg NEGATIVE Urine Barbiturates Screen Neg NEGATIVE Urine Phencyclidine Screen Neg NEGATIVE Urine Amphetamines Screen Neg NEGATIVE Urine Benzodiazepines Screen Neg NEGATIVE Urine Cocaine Screen Neg NEGATIVE Urine Cannabinoids Screen Neg NEGATIVE Prothrombin Time 10.2 9.3-11.8 sec Prothrombin Time INR 0.96 0.9-1.15 Activated Partial Thromboplast Time 24.8 24.5-34.5 SEC Iron Level 39 L 65-175 ug/dL Total Iron Binding Capacity 321 250-425 ug/dL Percent Iron Saturation 12.1 L 20-55 % Ferritin 21.1 L 22-322 ng/mL Vitamin B12 Level 852 211-911 pg/mL Folic Acid 12.28 >5.38 ng/mL Plasma/Serum Blood Alcohol < 3.0 <10 mg/dL Reticulocyte Count (auto) 3.05 H 0.5-1.5 % Lactate Dehydrogenase 245 120-246 U/L Lactic Acid Level 1.9 0.4-2.0 mmol/L Microbiology Date/Time Source Procedure Growth Status 03/16/25 16:36 Nose MRSA Screen - Final Complete 03/16/25 16:06 Sputum Gram Stain - Final Complete 03/16/25 16:06 Respiratory Culture - Final Stenotrophomonas maltophilia Escherichia coli Presumptive Milady albicans Complete 03/13/25 11:53 Stool Stool Culture - Final Complete 03/13/25 11:53 Stool Shiga Toxin I & II - Final Complete 03/12/25 11:55 Urine - [place]rios [place] Urine Culture - Final Complete 03/11/25 15:36 Blood Blood Culture - Final NO GROWTH AFTER 5 DAYS OF INCUBATION. Complete Assessment PATIENT WITH PRIOR HISTORY OF CHOLECYSTITIS TREATED WITH PERCUTANEOUS CHOLECYSTOSTOMY, NOW WITH CHOLECYSTITIS AND CBD STONE DEEMED NOT ACCESSIBLE TO ERCP DUE TO PRIOR GASTRIC OPERATION AND GASTROJEJUNOSTOMY. WILL DO OPEN CHOLECYSTECTOMY AND COMMON BILE DUCT EXPLORATION WITH INTRAOPERATIVE CHOLANGIOGRAM Plan discussed with: LOBO Easley MD Apr 01, 2025 12:58
[2025-04-01 14:54] LABS: INR 1.12 (0.9-1.15); Partial Thromboplastin Time 30.1 SEC (24.5-34.5); Prothrombin Time 11.7 sec (9.3-11.8)
--- NOTE | 2025-04-01 15:47 | DVHPNRES ---
Progress Note Date Seen: Apr 01, 2025 Resident Creating Document: SKY DASH RESIDENT Has the PT tested + for MRSA If YES, has PT been informed?: No Medical Necessity Reason Pt with a Central, PICC or Fol: Yes The following are medically ne: Barrios Catheter Subjective Review of Systems Jossue Perez is a 49-year-old male past medical history of hypertension, hyperlipidemia, DVT, 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 The patient mentions he had passage of stool 7 times yesterday which was tarry black in color. Patient mentions he also had abdominal pain, nausea and a few episodes of vomiting for the last 2 days. He denies any fever,weakness or weight loss. He reports history of perforated duodenal ulcer s/p exp lap with prolonged ICU stay complicated with sepsis from cholecystitis s/p tracheostomy and removal. On arrival to the hospital, his hemoglobin was 4.2 and he had to be transfused with 2 units of PRBCs. He was kept NPO and NG tube placed. GI was consulted and they recommended continuing with IV Protonix drip scheduled patient for EGD on 03/13/2025. Patient was seen and examined on the bedside. Status post extubation and on 2 L oxygen through nasal canula . Failed swallow evaluation yesterday and continuing tube feeding at 40 mL/hours. Physiotherapy on board and recommended doing PT 2 times a day. H&H is stable were continuing IV Ativan 0.5 mg q.12h p.r.n. for anxiety, clonidine 0.2 mg t.i.d., losartan 100 mg p.o. daily for hypertension. Surgery recommended open cholecystectomy and common bile duct exploration with intraoperative cholangiogram for cholecystitis with dilated CBD and also mentioned that patient is not a suitable candidate for endoscopic procedure as the patient has a prior gastric operation and gastrojejunostomy. Scheduled the surgery for tomorrow. Objective vital signs Vital Sign Date Time Temp Pulse Resp B/P (MAP) Pulse Ox O2 Delivery O2 Flow Rate FiO2 04/01/25 15:03 150/97 04/01/25 14:00 86 04/01/25 14:00 20 97 Nasal Cannula* 2 28 04/01/25 07:00 98.0 98.0 Total Intake and Output 03/31/25 03/31/25 04/01/25 15:00 23:00 07:00 Intake Total 50.2 ml 760 ml 776 ml Output Total 701 ml 750 ml Balance 50.2 ml 59 ml 26 ml medications Current Medications Medications Dose Ordered Sig/Wally Route Start Time Stop Time Status Last Admin Dose Admin Ondansetron HCl 4 mg Q4HP PRN IV 03/12/25 00:00 Midazolam HCl 100 ml @ 1 mls/hr Q24H IV 03/16/25 16:30 03/23/25 14:52 2 MLS/HR Diagnostic Test (Pha) 1 strip Q6HR 03/16/25 18:00 04/01/25 11:53 1 STRIP Insulin Human Regular FOLLOW SLIDING SCALE Q6HR SC 03/16/25 18:00 03/31/25 12:03 2 UNITS Dextrose 50 ml UD IV 03/16/25 17:15 Folic Acid 1 mg/ Dextrose 50.2 ml @ 200.8 mls/ hr DAILY INJ 03/17/25 10:00 04/01/25 10:32 200.8 MLS/HR Thiamine HCl 100 mg DAILY IV 03/18/25 10:00 04/01/25 09:41 100 MG Atorvastatin Calcium 40 mg HS PO 03/17/25 22:00 Hold Sucralfate 1 gm QID@0600,1130,1700,2200 GT 03/23/25 17:00 04/01/25 11:43 1 GM Pantoprazole Sodium 40 mg BID IV 03/26/25 22:00 04/01/25 09:41 40 MG Ipratropium [place] 0.5 mg Q6HR NEB 03/28/25 12:00 04/01/25 11:46 0.5 MG Levalbuterol HCl 0.625 mg Q6HR NEB 03/28/25 12:00 04/01/25 11:46 0.625 MG Nicotine 1 patch DAILY TD 03/29/25 10:00 04/01/25 09:41 1 PATCH Lorazepam 0.5 mg [id number] PRN IV 03/28/25 19:30 03/29/25 19:55 0.5 MG Clonidine HCl 0.2 mg TID PO 03/29/25 14:00 04/01/25 14:03 0.2 MG Furosemide 20 mg BIDD IV 03/29/25 18:00 04/01/25 05:34 20 MG Losartan Potassium 100 mg DAILY PO 03/30/25 10:00 04/01/25 09:44 100 MG Enteral Nutritional Formula 1,000 ml 40ML/HR GT 03/30/25 10:00 Labetalol HCl 20 mg Q4HP PRN IV 03/30/25 16:00 Glycopyrrolate 0.2 mg TID IV 03/30/25 22:00 04/01/25 14:03 0.2 MG Purified Water 200 ml Q4HR GT 04/01/25 08:30 04/01/25 14:14 200 ML Examination Physical examination: General Appearance: Alert, Oriented X3, anxious, on oxymizer 8L HEENT: Atraumatic, PERRLA, EOMI, Mucous membrane moist/pink Respiratory: Bilateral crackles. Cardiovascular: Regular rate, Normal S1, Normal S2, No murmurs, no chest wall tenderness Abdominal: Normal bowel sounds, Soft, No tenderness, No hepatospenomegaly, No masses Extremities: No clubbing, No cyanosis, No edema, Normal pulses, No tenderness/swelling Skin: No rashes, No breakdown, No significant lesion Neuro: Normal speech, right-sided weakness, Strength at 5/5 X2 ext, Normal tone, Sensation intact, grossly intact cranial nerves Psych/Mental Status: could not be assessed laboratory and microbiology Laboratory Tests 04/01/25 03:30 03/30/25 02:58 Test 04/01/25 03:30 Range/Units Serum Glucose 108 H 74-106 mg/dL Microbiology Date/Time Source Procedure Growth Status 03/16/25 16:36 Nose MRSA Screen - Final Complete 03/16/25 16:06 Sputum Gram Stain - Final Complete 03/16/25 16:06 Respiratory Culture - Final Stenotrophomonas maltophilia Escherichia coli Presumptive Milady albicans Complete 03/13/25 11:53 Stool Stool Culture - Final Complete 03/13/25 11:53 Stool Shiga Toxin I & II - Final Complete 03/12/25 11:55 Urine - Barrios Port Urine Culture - Final Complete 03/11/25 15:36 Blood Blood Culture - Final NO GROWTH AFTER 5 DAYS OF INCUBATION. Complete Labs and/or images reviewed: Labs reviewed by me, Image(s) reviewed by me Problem List/Assessment/Plan Problem List/Assessment/Plan Assessment and plan : NEURO: Acute metabolic encephalopathy secondary to acute ischemic stroke Acute or subacute ischemic stroke Hypertensive emergency Acute anxiety - CT head without contrast demonstrated new medial right parieto-occipital focal region of diminished parenchymal attenuation within the medial right parietal occipital lobes. This is concerning for an acute to subacute infarct with chronic multifocal lacunar infarct - MRI showed Infarcts involving multiple vascular territories involved medial right occipital lobe, posterior left occipital lobe, and left lopes radiata white matter tracts. Few additional tiny foci of diffusion restriction at the anterior right parietal cortex. - Neurology on board - hold aspirin and Plavix for now because of GI bleeding - atorvastatin 40 mg p.o. daily - Clonidine 0.2 mg p.o.tid, losartan 100 mg daily and IV hydralazine 20 mg q.4h PRN - IV Ativan 0.5 mg q.12 PRN CARDIOVASCULAR: Chronic diastolic heart failure with preserved ejection fraction - Echo on 11/12 demonstrated EF 65%, MILD LVH AND MILD LV DIASTOLIC DYSFUNCTION - elevated BNP - CxR showed Bilateral interstitial opacities, small left basilar consolidation and pleural effusion - IV Lasix 20 mg b.i.d. PULMONARY: Acute hypoxic respiratory failure S/P extubation GASTROINTESTINAL: Acute GI bleed upper vs lower Partial small Intestinal obstruction likely secondary to fecal impaction. Cholelithiasis C diff positive Elevated alkaline phosphatase -CT abdomen/pelvis showed low-grade distal partial obstruction due to fecal retention. - Gastrograffin study showed Contrast is identified within the colon by 3 hours. No evidence of bowel obstruction. -EGD on 03/13/25 showed 1-2 cm sliding-type hiatal hernia with severe grade C linear erosive esophagitis with esophageal ulcers extending into the distal 15 cm of the esophagus persistent duodenal bulb ulcer seen just inside the pyloric opening which was large coalescing with a visible sutures; there was no active bleeding or visible vessel but there was acute on chronic inflammation deformity of the postbulbar duodenal area and but there was area of debris and ongoing chronic ulceration inflammation and the endoscope was not advanced beyond this area mild gastritis and some old coffee-ground within the stomach - GB U/S demonstrated gallbladder wall thickening and pericholecystic edema, concerning for cholecystitis and dilated CBD up to 16 mm. - MRCP scan demonstrated Choledocholithiasis in the mid to distal common bile duct predominantly dependently. - NPO - failed swallow evaluation yesterday - Tube feeding at 40 mL/hours - IV Protonix 40 mg bid - Carafate suspension 1 g q.i.d. - Zofran 4 mg IV q.4 PRN - surgery recommended open cholecystectomy with common bile duct exploration with intrahepatic cholangiogram for tomorrow - Monitor Hand H, transfuse if hemoglobin less than 7 GENITOURINARY: GIOVANI on CKD likely hemodynamically mediated/VMN resolved - Monitor BMP METABOLIC: Hypernatremia Hypokalemia Hypophosphatemia - monitor BMP HEME: Severe microcytic hypochromic anemia due to GI bleeding Iron deficiency due to above Bilateral superficial thrombophlebitis - Patient received 4 units of PRBC - Monitor H&H INFECTIOUS DISEASE: Acute C diff infection - hold po vanc because of upper GI bleeding Nicotine dependence - Nicotine dependence 21 g/24 hours DIET: TPN, Tube feeding DVT prophylax: SCD GI prophylaxis: Protonix Bowel regimen: Code status: Full code LINES/DRAINS/ACCESS: Extubated on 03/27/25 Drips: tube feeding Barrios catheter: DISPOSITION: ICU Patient's status discussed with RN, Critical care time spent more than 73 minutes, including patient care, chart review, and updating the family. Excluding any procedures. Case discussed with Dr. Garcia Plan discussed with: Spouse, Other My Orders My Orders Orders - SKY DASH RESIDENT Procedure Category Date Status Time Free Water PHA 04/01/25 In Process 08:30 Insert Midline ORDERS 04/01/25 Transmitted 09:11 Dietary Evaluation Review Recommendations by RD: Increase Calorie Intake, PPN/TPN Comments: Pt meets criteria 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 based on severe wt loss 35lb/24% in 5 month, intake <50% estimated requirement x 5 days, severe muscle wasting and fat depletion Nutrition Recommendation: 1) PPN/TPN if NPO continues 2) Advance to soft diet as medically feasible 3) Ensure Enlive 240ml TID if pt resumes PO diet 4) Monitor NPO status, lab values, weight trend, and I/O Expected Outcomes/Goals: Intake to meet >75% estimated needs GI symptoms to improve Fu 2-3 days Food and Nutrition Intake (Sev: <50% est energy req 5days Interpretation of weight loss: >10% in 6 months Body Fat Depletion (Severe): Mod to Severe Depletion Muscle Mass (Severe): Mod to Severe Depletion Protein Calorie Malnutrition: Severe Is there a minimum of two crit: Yes CC Plasma Assessment Blood Product Administration S: [id number] Date of Service: Apr 01, 2025 Billing Provider: DIANA GARCIA MD Common Visit Codes: [id number] CARE 30-74 MIN SKY DASH RESIDENT Apr 01, 2025 15:47
--- NOTE | 2025-04-01 16:37 | DVHPN2 ---
Progress Note Date Seen: Apr 01, 2025 Resident Creating Document: RICHARD TOSCANO RESIDENT Has the PT tested + for MRSA If YES, has PT been informed?: No Medical Necessity Reason Pt with a Central, PICC or Fol: Yes The following are medically ne: Barrios Catheter Subjective Review of Systems Patient seen and examined at the bedside Very weak cough reflex denies abdominal pain Surgical consultation done and they recommended cholecystectomy with CBD exploration with intraoperative cholangiogram on Sunday Tolerating tube feedings with minimal residuals Objective vital signs Vital Sign Date Time Temp Pulse Resp B/P (MAP) Pulse Ox O2 Delivery O2 Flow Rate FiO2 04/01/25 15:03 150/97 04/01/25 14:00 86 04/01/25 14:00 20 97 Nasal Cannula* 2 28 04/01/25 07:00 98.0 98.0 Total Intake and Output 03/31/25 03/31/25 04/01/25 15:00 23:00 07:00 Intake Total 50.2 ml 760 ml 776 ml Output Total 701 ml 750 ml Balance 50.2 ml 59 ml 26 ml medications Current Medications Medications Dose Ordered Sig/Wally Route Start Time Stop Time Status Last Admin Dose Admin Ondansetron HCl 4 mg Q4HP PRN IV 03/12/25 00:00 Midazolam HCl 100 ml @ 1 mls/hr Q24H IV 03/16/25 16:30 03/23/25 14:52 2 MLS/HR Diagnostic Test (Pha) 1 strip Q6HR 03/16/25 18:00 04/01/25 11:53 1 STRIP Insulin Human Regular FOLLOW SLIDING SCALE Q6HR SC 03/16/25 18:00 03/31/25 12:03 2 UNITS Dextrose 50 ml UD IV 03/16/25 17:15 Folic Acid 1 mg/ Dextrose 50.2 ml @ 200.8 mls/ hr DAILY INJ 03/17/25 10:00 04/01/25 10:32 200.8 MLS/HR Thiamine HCl 100 mg DAILY IV 03/18/25 10:00 04/01/25 09:41 100 MG Atorvastatin Calcium 40 mg HS PO 03/17/25 22:00 Hold Sucralfate 1 gm QID@0600,1130,1700,2200 GT 03/23/25 17:00 04/01/25 11:43 1 GM Pantoprazole Sodium 40 mg BID IV 03/26/25 22:00 04/01/25 09:41 40 MG Ipratropium [place] 0.5 mg Q6HR NEB 03/28/25 12:00 04/01/25 11:46 0.5 MG Levalbuterol HCl 0.625 mg Q6HR NEB 03/28/25 12:00 04/01/25 11:46 0.625 MG Nicotine 1 patch DAILY TD 03/29/25 10:00 04/01/25 09:41 1 PATCH Lorazepam 0.5 mg [id number] PRN IV 03/28/25 19:30 03/29/25 19:55 0.5 MG Clonidine HCl 0.2 mg TID PO 03/29/25 14:00 04/01/25 14:03 0.2 MG Furosemide 20 mg BIDD IV 03/29/25 18:00 04/01/25 05:34 20 MG Losartan Potassium 100 mg DAILY PO 03/30/25 10:00 04/01/25 09:44 100 MG Enteral Nutritional Formula 1,000 ml 40ML/HR GT 03/30/25 10:00 Labetalol HCl 20 mg Q4HP PRN IV 03/30/25 16:00 Glycopyrrolate 0.2 mg TID IV 03/30/25 22:00 04/01/25 14:03 0.2 MG Purified Water 200 ml Q4HR GT 04/01/25 08:30 04/01/25 14:14 200 ML Examination Gen - mild conjunctival pallor, no scleral icterus Skin - Patients skin is warm and dry. HEENT - normocephalic, atraumatic, dry mucous membranes. Neck - supple, no lymphadenopathy Pulmonary - B/L equal air entry cardiovascular - regular S1,S2 heard GI - soft abdomen. Bowel sounds normoactive Neurological - Patient extubated, A&O x3 and is following commands, but has difficulty speaking laboratory and microbiology Laboratory Tests 04/01/25 03:30 03/30/25 02:58 Test 04/01/25 03:30 Range/Units Serum Glucose 108 H 74-106 mg/dL Microbiology Date/Time Source Procedure Growth Status 03/16/25 16:36 Nose MRSA Screen - Final Complete 03/16/25 16:06 Sputum Gram Stain - Final Complete 03/16/25 16:06 Respiratory Culture - Final Stenotrophomonas maltophilia Escherichia coli Presumptive Milady albicans Complete 03/13/25 11:53 Stool Stool Culture - Final Complete 03/13/25 11:53 Stool Shiga Toxin I & II - Final Complete 03/12/25 11:55 Urine - Barrios Port Urine Culture - Final Complete 03/11/25 15:36 Blood Blood Culture - Final NO GROWTH AFTER 5 DAYS OF INCUBATION. Complete Problem List/Assessment/Plan Problem List/Assessment/Plan Assessment Upper GI bleeding likely from persistent duodenal ulcer Duodenal ulcer disease History of perforated duodenal ulcer s/p surgical repair Hiatal hernia Severe grade C linear erosive esophagitis with esophageal ulcers C. difficile colitis Elevated liver enzymes Severe anemia New multiple stroke in different arterial territories (MRI 03/18/25) Multiple chronic strokes GIOVANI on CKD likely due to VMN, improving Transaminitis Pneumonia Choledocholithiasis Plan Continue on Protonix 40 IV b.i.d. Continue on tube feedings, failed swallow evaluation Monitor H&H, transfuse if HGB less than 7 LFTs improving IV metronidazole and ceftriaxone Hold off on anticoagulation and antiplatelet drugs because of likely active GI bleed Patient was found to have a CBD stone with mild dilation of the CBD, based on endoscopy patient may not be able to undergo ERCP and for which surgical consultation done and patient will be taken for open cholecystectomy and CBD exploration and intraoperative cholangiogram on Sunday If the patient continues to have multiple bowel movements with the C diff, may benefit from vancomycin enema Plan discussed with Dr. Stoddard Plan discussed with: Patient, Other (JASPER Lee) Dietary Evaluation Review Recommendations by RD: Increase Calorie Intake, PPN/TPN Comments: Pt meets criteria 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 based on severe wt loss 35lb/24% in 5 month, intake <50% estimated requirement x 5 days, severe muscle wasting and fat depletion Nutrition Recommendation: 1) PPN/TPN if NPO continues 2) Advance to soft diet as medically feasible 3) Ensure Enlive 240ml TID if pt resumes PO diet 4) Monitor NPO status, lab values, weight trend, and I/O Expected Outcomes/Goals: Intake to meet >75% estimated needs GI symptoms to improve Fu 2-3 days Food and Nutrition Intake (Sev: <50% est energy req 5days Interpretation of weight loss: >10% in 6 months Body Fat Depletion (Severe): Mod to Severe Depletion Muscle Mass (Severe): Mod to Severe Depletion Protein Calorie Malnutrition: Severe Is there a minimum of two crit: Yes CC Plasma Assessment Blood Product Administration S: [id number] RICHARD TOSCANO RESIDENT Apr 01, 2025 16:37
--- NOTE | 2025-04-01 23:28 | DVHPN2 ---
Subjective DOS: 04/01/2025 Patient seen and examined at bedside. Remains on supplemental oxygen Overnight events reviewed Changes from previous H/P or p: No Changes Eyes: No Pain, No Vision change, No Conjunctivae inflammation, No Eyelid inflammation, No Other, No Redness ENT: No Ear pain, No Ear discharge, No Nose pain, No Nose discharge, No Nose congestion, No Mouth pain, No Mouth swelling, No Throat pain, No Throat swelling, No Other Cardiovascular: No Chest Pain, No Palpitations, No Orthopnea, No Paroxysmal Noc. Dyspnea, No Edema, No Lt Headedness, No Other Respiratory: No Cough, No Dry, No Shortness of breath, No SOB with excertion, No Wheezing, No Hemoptysis, No Pleuritic Pain, No Sputum, No Other Gastrointestinal: Melena Musculoskeletal: No other, No neck pain, No shoulder pain, No arm pain, No back pain, No hand pain, No leg pain, No foot pain Skin: No Rash, No Lesions, No Jaundice, No Bruising, No Other Objective Vitals Vital Signs Date Time Temp Pulse Resp B/P (MAP) Pulse Ox O2 Delivery O2 Flow Rate FiO2 04/01/25 22:06 131/93 04/01/25 20:00 16 99 Nasal Cannula* 2 28 04/01/25 20:00 78 04/01/25 18:00 98.9 98.9 Intake/Output Intake and Output 04/01/25 07:00 Intake Total 1586.2 ml Output Total 1451 ml Balance 135.2 ml Intake Oral 500 ml IV Total 120.2 ml Tube Feeding 566 ml Other 400 ml Output Urine Total 1450 ml Stool Total 1 ml # Bowel Movements 1 Exam Gen.: Patient lying in bed in no apparent distress. On supplemental oxygen. Head: Normocephalic, atraumatic. Eyes: EOMI/PERRLA. Ears: Normal hearing. Normal anatomy. Neck/trachea: Trachea midline, supple. Nose: Normal external anatomy. Mouth: Moist mucous membranes. Chest: Decreased air entry bilaterally. No wheezing or rhonchi. Cardiovascular: Positive S1, positive S2. Regular rate and rhythm. Abdomen: Positive bowel sounds in all 4 quadrants. Soft, non-tender, non- distended. : Deferred. Rectal: Deferred. Skin: Warm, dry. Intact. Extremities: 2+ radial pulses bilaterally. No lower extremity edema. Neuro: Awake, alert, oriented x3. No gross motor or sensory deficits. Cranial nerves II through XII intact. Gait not assessed. Medications Current Medications Medications Dose Ordered Sig/Wally Route Start Time Stop Time Status Last Admin Dose Admin Ondansetron HCl 4 mg Q4HP PRN IV 03/12/25 00:00 Midazolam HCl 100 ml @ 1 mls/hr Q24H IV 03/16/25 16:30 03/23/25 14:52 2 MLS/HR Diagnostic Test (Pha) 1 strip Q6HR 03/16/25 18:00 04/01/25 18:09 1 STRIP Insulin Human Regular FOLLOW SLIDING SCALE Q6HR SC 03/16/25 18:00 03/31/25 12:03 2 UNITS Dextrose 50 ml UD IV 03/16/25 17:15 Folic Acid 1 mg/ Dextrose 50.2 ml @ 200.8 mls/ hr DAILY INJ 03/17/25 10:00 04/01/25 10:32 200.8 MLS/HR Thiamine HCl 100 mg DAILY IV 03/18/25 10:00 04/01/25 09:41 100 MG Atorvastatin Calcium 40 mg HS PO 03/17/25 22:00 Hold Sucralfate 1 gm QID@0600,1130,1700,2200 GT 03/23/25 17:00 04/01/25 22:05 1 GM Pantoprazole Sodium 40 mg BID IV 03/26/25 22:00 04/01/25 22:05 40 MG Ipratropium [place] 0.5 mg Q6HR NEB 03/28/25 12:00 04/01/25 18:26 0.5 MG Levalbuterol HCl 0.625 mg Q6HR NEB 03/28/25 12:00 04/01/25 18:26 0.625 MG Nicotine 1 patch DAILY TD 03/29/25 10:00 04/01/25 09:41 1 PATCH Lorazepam 0.5 mg [id number] PRN IV 03/28/25 19:30 03/29/25 19:55 0.5 MG Clonidine HCl 0.2 mg TID PO 03/29/25 14:00 04/01/25 22:06 0.2 MG Furosemide 20 mg BIDD IV 03/29/25 18:00 04/01/25 17:40 20 MG Losartan Potassium 100 mg DAILY PO 03/30/25 10:00 04/01/25 09:44 100 MG Enteral Nutritional Formula 1,000 ml 40ML/HR GT 03/30/25 10:00 Labetalol HCl 20 mg Q4HP PRN IV 03/30/25 16:00 Glycopyrrolate 0.2 mg TID IV 03/30/25 22:00 04/01/25 22:05 0.2 MG Purified Water 200 ml Q4HR GT 04/01/25 08:30 04/01/25 22:05 200 ML Laboratory Results Laboratory Tests 03/30/25 02:58 04/01/25 03:30 Chemistry Test 04/01/25 03:30 Calcium Level 8.7 mg/dL (8.7-10.4) Coagulation Test 04/01/25 13:53 Prothrombin Time 11.7 sec (9.3-11.8) Prothrombin Time INR 1.12 (0.9-1.15) Activated Partial Thromboplast Time 30.1 SEC (24.5-34.5) Urinalysis Test 03/12/25 05:00 03/12/25 10:20 03/17/25 06:30 Urine Color Light-yellow (Yellow) Urine Clarity Clear (Clear) Urine pH 5.5 (5.0-9.0) Urine Specific [place] 1.013 (1.001-1.035) Urine Protein Trace (Negative) H Urine Ketones Trace (Negative) Urine Blood Negative /uL (Negative) Urine Nitrite Negative (Negative) Urine Bilirubin Negative (Negative) Urine Urobilinogen Normal mg/dL (Negative) Urine Leukocyte Esterase Negative /uL (Negative) Urine RBC <1 /hpf (0 - 3) Urine Microscopic WBC < 1 /HPF (0-3) Urine Squamous Epithelial Cells None seen /hpf (<5) Urine Bacteria None seen /hpf (None Seen) Urine Glucose Normal mg/dL (Normal) Urine Protein/Creatinine Ratio 2.26 Urine Total Protein 23.6 mg/dL (1-14) H Urine Creatinine 56.14 mg/dL (30.0-125.0) Urine Sodium 13 mmol/L (40-220) L Microbiology Microbiology Date/Time Source Procedure Growth Status 03/16/25 16:36 Nose MRSA Screen - Final Complete 03/16/25 16:06 Sputum Gram Stain - Final Complete 03/16/25 16:06 Respiratory Culture - Final Stenotrophomonas maltophilia Escherichia coli Presumptive Milady albicans Complete 03/13/25 11:53 Stool Stool Culture - Final Complete 03/13/25 11:53 Stool Shiga Toxin I & II - Final Complete 03/12/25 11:55 Urine - [place] Urine Culture - Final Complete 03/11/25 15:36 Blood Blood Culture - Final NO GROWTH AFTER 5 DAYS OF INCUBATION. Complete Assessment/Plan Assessment/Plan Impression: Acute hypoxic respiratory failure Dependence on supplemental oxygen Acute metabolic encephalopathy Multiple strokes Chronic diastolic heart failure with preserved EF GI hemorrhage Anemia GIOVANI on CKD Events: Patient remains on supplemental oxygen On 2 LPM NC Taper O2 as tolerated. Failed swallow evaluation, has a very poor cough reflex Tolerating NG tube feedings well with minimal residuals Denies any abdominal pain H&H is stable Glycopyrrolate 0.2 mg IVP for increased secretions. Continue on ipratropium 0.5 mg q.6 hours Monitor hemoglobin Transfuse if Hgb less than 7.0 g/dL Continue sucralfate + Protonix BID FOBT positive GI recommendations appreciated. Hold off on anticoagulation and antiplatelet drugs because of likely active GI bleed Continue bronchodilators Continue antibiotics Incentive spirometry Blood pressure control Pain control Avoid oversedation Tube feeds for nutritional support Surgery plans for cholecystectomy in the AM. CXR on 03/30/25 shows stable pulmonary venous congestion. Stable small left- sided pleural effusion with dense atelectasis/consolidation at the left lung base. MRCP on 03/29/25 for dilated CBD and elevated alk-phos, MRCP suggestive of a mid CBD stone Right upper quadrant ultrasound showed evidence of gallbladder sludge and inflammation Labs and imaging reviewed. Rest of plan as noted below. Plan: S/p extubation on 03/27/25 On supplemental oxygen Titrate to keep O2 sats above 92%. Continue antibiotics. Follow up cultures. Pressors as necessary for hemodynamic support Titrate to keep mean arterial pressure greater than 65 mmHg. Monitor hemoglobin Transfuse if less than 7.0 g/dL. NGT to LIS Protonix drip F/u GI and Surgery recs Accu-Cheks, ISS PRN Monitor renal function Monitor electrolytes. Supplement as necessary. Monitor ins and outs. Maintain euvolemia. TPN for nutritional support Counseled against vaping and marijuana use. GI prophylaxis. DVT prophylaxis. Prognosis: Poor given patient's multiple co-morbidities. Condition: Critical Rest of plan per hospitalist and other consultants. A total of 35 minutes of critical care time was spent reviewing the patient record, examining the patient, making a diagnostic and therapeutic plan, discussing this plan with the medical personnel, following up on diagnostic studies and following the patient for clinical stability excluding any and all procedures. At least 50% of this time was spent in direct, [id number] contact. Thank you, Dr. Khoury, for allowing me to participate in this patient's care. Further recommendations will depend on the patient's clinical course. Please do not hesitate to contact me if you have any questions or concerns. This medical document was created using an electronic medical record system with [employer] dictation system. Although these documentations are being carefully reviewed, there may still be some phonetic and typographical changes. The errors are purely typographical, due to imperfection on the software program, and do not reflect any compromise in the patient's medical care. Plan discussed with: Patient, Other (JASPER Huff) Visit Coding Pulmonary Billing Provider: ARIE LOPEZ MD Date of Service if different f: Apr 01, 2025 Common Visit Codes: [id number] INP/OBS CARE(HIGH), [id number] CARE 30-74 MIN ARIE LOPEZ MD Apr 01, 2025 23:28
[2025-04-02] VITALS (33 sets, daily range): BP systolic 88–142; BP diastolic 58–94; PULSE 8–120; RESP 12–98; TEMP 97.5–98.2; O2SAT 91–100
[2025-04-02 04:56] LABS: Hemoglobin 9.6 g/dL (13.5-17.5); Nucleated Red Blood Cells % 0.0 %
[2025-04-02 04:58] LABS: Hematocrit 29.8 % (41.0-53.0); Mean Corpuscular Hemoglobin 27.2 pg (28.0-32.0); Mean Corpuscular Volume 84.4 fL (80.0-100.0)
[2025-04-02 05:17] LABS: Anion Gap 11 (5-15); BUN/Creatinine Ratio 35.5 (10.0-20.0); Bilirubin, Total 0.3 mg/dL (0.2-1.0); Potassium 3.6 mmol/L (3.5-5.1); Sodium 142 mmol/L (136-145); Total Protein 6.3 g/dL (5.7-8.2)
[2025-04-02 05:38] LABS: Alanine Aminotransferase 46 U/L (7-40); Albumin 2.8 g/dL (3.2-4.8); Alkaline Phosphatase 288 U/L (46-116); Blood Urea Nitrogen 38 mg/dL (9-23); Calcium 8.3 mg/dL (8.7-10.4); Carbon Dioxide 34 mmol/L (20-31); Chloride 97 mmol/L (98-107); Glucose 122 mg/dL (74-106)
--- NOTE | 2025-04-02 11:52 | DVHPN2 ---
Progress Note Date Seen: Apr 02, 2025 Resident Creating Document: YVES TOSCANOKEILA RESIDENT Has the PT tested + for MRSA If YES, has PT been informed?: No Medical Necessity Reason Pt with a Central, PICC or Fol: Yes The following are medically ne: [place] Catheter Subjective Review of Systems Patient seen and examined at the bedside Very weak cough reflex denies abdominal pain Surgical tomorrow Objective vital signs Vital Sign Date Time Temp Pulse Resp B/P (MAP) Pulse Ox O2 Delivery O2 Flow Rate FiO2 04/02/25 10:57 127/89 04/02/25 06:16 84 20 100 04/02/25 06:11 Nasal Cannula* 2 28 04/02/25 04:00 98.2 98.2 Total Intake and Output 04/01/25 04/01/25 04/02/25 15:00 23:00 07:00 Intake Total 610.2 ml 1310 ml 620 ml Output Total 950 ml 900 ml Balance 610.2 ml 360 ml -280 ml medications Current Medications Medications Dose Ordered Sig/Wally Route Start Time Stop Time Status Last Admin Dose Admin Ondansetron HCl 4 mg Q4HP PRN IV 03/12/25 00:00 Midazolam HCl 100 ml @ 1 mls/hr Q24H IV 03/16/25 16:30 03/23/25 14:52 2 MLS/HR Diagnostic Test (Pha) 1 strip Q6HR 03/16/25 18:00 04/02/25 11:34 1 STRIP Insulin Human Regular FOLLOW SLIDING SCALE Q6HR SC 03/16/25 18:00 03/31/25 12:03 2 UNITS Dextrose 50 ml UD IV 03/16/25 17:15 Folic Acid 1 mg/ Dextrose 50.2 ml @ 200.8 mls/ hr DAILY INJ 03/17/25 10:00 04/02/25 10:55 200.8 MLS/HR Thiamine HCl 100 mg DAILY IV 03/18/25 10:00 04/02/25 10:58 100 MG Atorvastatin Calcium 40 mg HS PO 03/17/25 22:00 Hold Sucralfate 1 gm QID@0600,1130,1700,2200 GT 03/23/25 17:00 04/02/25 10:56 1 GM Pantoprazole Sodium 40 mg BID IV 03/26/25 22:00 04/02/25 10:57 40 MG Ipratropium [place] 0.5 mg Q6HR NEB 03/28/25 12:00 04/02/25 06:11 0.5 MG Levalbuterol HCl 0.625 mg Q6HR NEB 03/28/25 12:00 04/02/25 06:11 0.625 MG Nicotine 1 patch DAILY TD 03/29/25 10:00 04/02/25 10:56 1 PATCH Lorazepam 0.5 mg [id number] PRN IV 03/28/25 19:30 03/29/25 19:55 0.5 MG Clonidine HCl 0.2 mg TID PO 03/29/25 14:00 04/01/25 22:06 0.2 MG Furosemide 20 mg BIDD IV 03/29/25 18:00 04/02/25 06:09 20 MG Losartan Potassium 100 mg DAILY PO 03/30/25 10:00 04/02/25 10:57 100 MG Enteral Nutritional Formula 1,000 ml 40ML/HR GT 03/30/25 10:00 Labetalol HCl 20 mg Q4HP PRN IV 03/30/25 16:00 Glycopyrrolate 0.2 mg TID IV 03/30/25 22:00 04/02/25 06:10 0.2 MG Purified Water 200 ml Q4HR GT 04/01/25 08:30 04/02/25 10:00 200 ML Examination Gen - mild conjunctival pallor, no scleral icterus Skin - Patients skin is warm and dry. HEENT - normocephalic, atraumatic, dry mucous membranes. Neck - supple, no lymphadenopathy Pulmonary - B/L equal air entry cardiovascular - regular S1,S2 heard GI - soft abdomen. Bowel sounds normoactive Neurological - Patient extubated, A&O x3 and is following commands, but has difficulty speaking laboratory and microbiology Laboratory Tests 04/02/25 04:25 Test 04/02/25 04:25 Range/Units Serum Glucose 122 H 74-106 mg/dL Microbiology Date/Time Source Procedure Growth Status 03/16/25 16:36 Nose MRSA Screen - Final Complete 03/16/25 16:06 Sputum Gram Stain - Final Complete 03/16/25 16:06 Respiratory Culture - Final Stenotrophomonas maltophilia Escherichia coli Presumptive Milady albicans Complete 03/13/25 11:53 Stool Stool Culture - Final Complete 03/13/25 11:53 Stool Shiga Toxin I & II - Final Complete 03/12/25 11:55 Urine - [place] Urine Culture - Final Complete 03/11/25 15:36 Blood Blood Culture - Final NO GROWTH AFTER 5 DAYS OF INCUBATION. Complete Problem List/Assessment/Plan Problem List/Assessment/Plan Assessment Upper GI bleeding likely from persistent duodenal ulcer Duodenal ulcer disease History of perforated duodenal ulcer s/p surgical repair Hiatal hernia Severe grade C linear erosive esophagitis with esophageal ulcers C. difficile colitis Elevated liver enzymes Severe anemia New multiple stroke in different arterial territories (MRI 03/18/25) Multiple chronic strokes GIVOANI on CKD likely due to VMN, improving Transaminitis Pneumonia Choledocholithiasis Plan Continue on Protonix 40 IV b.i.d. Hold feeding in the afternoon since the patient is planned for surgery tomorrow Monitor H&H, transfuse if HGB less than 7 LFTs improving IV metronidazole and ceftriaxone Hold off on anticoagulation and antiplatelet drugs because of likely active GI bleed Patient was found to have a CBD stone with mild dilation of the CBD, based on endoscopy patient may not be able to undergo ERCP and for which surgical consultation done and patient will be taken for open cholecystectomy and CBD exploration and intraoperative cholangiogram on Sunday Plan discussed with Dr. Stoddard Plan discussed with: Patient, Spouse, Other (JASPER Erwin) Dietary Evaluation Review Recommendations by RD: Increase Calorie Intake, PPN/TPN Comments: Pt meets criteria 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 based on severe wt loss 35lb/24% in 5 month, intake <50% estimated requirement x 5 days, severe muscle wasting and fat depletion Nutrition Recommendation: 1) PPN/TPN if NPO continues 2) Advance to soft diet as medically feasible 3) Ensure Enlive 240ml TID if pt resumes PO diet 4) Monitor NPO status, lab values, weight trend, and I/O Expected Outcomes/Goals: Intake to meet >75% estimated needs GI symptoms to improve Fu 2-3 days Food and Nutrition Intake (Sev: <50% est energy req 5days Interpretation of weight loss: >10% in 6 months Body Fat Depletion (Severe): Mod to Severe Depletion Muscle Mass (Severe): Mod to Severe Depletion Protein Calorie Malnutrition: Severe Is there a minimum of two crit: Yes CC Plasma Assessment Blood Product Administration S: [id number] RICHARD TOSCANO RESIDENT Apr 02, 2025 11:52
[2025-04-02] MEDS: Vital High Protein 1liter Bottle GT SCH (14:59)
--- NOTE | 2025-04-02 15:41 | DVHPNRES ---
Progress Note Date Seen: Apr 02, 2025 Resident Creating Document: SKY DASH RESIDENT Has the PT tested + for MRSA If YES, has PT been informed?: No Medical Necessity Reason Pt with a Central, PICC or Fol: Yes The following are medically ne: Barrios Catheter Subjective Review of Systems Jossue Perez is a 49-year-old male past medical history of hypertension, hyperlipidemia, DVT, 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 The patient mentions he had passage of stool 7 times yesterday which was tarry black in color. Patient mentions he also had abdominal pain, nausea and a few episodes of vomiting for the last 2 days. He denies any fever,weakness or weight loss. He reports history of perforated duodenal ulcer s/p exp lap with prolonged ICU stay complicated with sepsis from cholecystitis s/p tracheostomy and removal. On arrival to the hospital, his hemoglobin was 4.2 and he had to be transfused with 2 units of PRBCs. He was kept NPO and NG tube placed. GI was consulted and they recommended continuing with IV Protonix drip scheduled patient for EGD on 03/13/2025. Patient was seen and examined on the bedside. Status post extubation and on 2 L oxygen through nasal canula . continuing tube feeding at 40 mL/hours. Physiotherapy on board and recommended doing PT 2 times a day. H&H is stable were continuing IV Ativan 0.5 mg q.12h p.r.n. for anxiety, clonidine 0.2 mg t.i.d., losartan 100 mg p.o. daily for hypertension. Surgery recommended open cholecystectomy and common bile duct exploration with intraoperative cholangiogram for cholecystitis with dilated CBD and also mentioned that patient is not a suitable candidate for endoscopic procedure as the patient has a prior gastric operation and gastrojejunostomy. Scheduled the surgery for tomorrow. Objective vital signs Vital Sign Date Time Temp Pulse Resp B/P (MAP) Pulse Ox O2 Delivery O2 Flow Rate FiO2 04/02/25 15:00 113 27 121/83 (96) 94 04/02/25 12:00 98.2 98.2 04/02/25 11:53 Nasal Cannula 2.0 04/02/25 11:53 28 Total Intake and Output 04/01/25 04/01/25 04/02/25 14:59 22:59 06:59 Intake Total 610.2 ml 1380 ml 620 ml Output Total 950 ml 900 ml Balance 610.2 ml 430 ml -280 ml medications Current Medications Medications Dose Ordered Sig/Wally Route Start Time Stop Time Status Last Admin Dose Admin Ondansetron HCl 4 mg Q4HP PRN IV 03/12/25 00:00 Midazolam HCl 100 ml @ 1 mls/hr Q24H IV 03/16/25 16:30 03/23/25 14:52 2 MLS/HR Diagnostic Test (Pha) 1 strip Q6HR 03/16/25 18:00 04/02/25 11:34 1 STRIP Insulin Human Regular FOLLOW SLIDING SCALE Q6HR SC 03/16/25 18:00 03/31/25 12:03 2 UNITS Dextrose 50 ml UD IV 03/16/25 17:15 Folic Acid 1 mg/ Dextrose 50.2 ml @ 200.8 mls/ hr DAILY INJ 03/17/25 10:00 04/02/25 10:55 200.8 MLS/HR Thiamine HCl 100 mg DAILY IV 03/18/25 10:00 04/02/25 10:58 100 MG Atorvastatin Calcium 40 mg HS PO 03/17/25 22:00 Hold Sucralfate 1 gm QID@0600,1130,1700,2200 GT 03/23/25 17:00 04/02/25 10:56 1 GM Pantoprazole Sodium 40 mg BID IV 03/26/25 22:00 04/02/25 10:57 40 MG Ipratropium [place] 0.5 mg Q6HR NEB 03/28/25 12:00 04/02/25 11:53 0.5 MG Levalbuterol HCl 0.625 mg Q6HR NEB 03/28/25 12:00 04/02/25 11:53 0.625 MG Nicotine 1 patch DAILY TD 03/29/25 10:00 04/02/25 10:56 1 PATCH Lorazepam 0.5 mg [id number] PRN IV 03/28/25 19:30 03/29/25 19:55 0.5 MG Clonidine HCl 0.2 mg TID PO 03/29/25 14:00 04/02/25 14:57 0.2 MG Furosemide 20 mg BIDD IV 03/29/25 18:00 04/02/25 06:09 20 MG Losartan Potassium 100 mg DAILY PO 03/30/25 10:00 04/02/25 10:57 100 MG Enteral Nutritional Formula 1,000 ml 40ML/HR GT 03/30/25 10:00 04/02/25 14:59 1,000 ML Labetalol HCl 20 mg Q4HP PRN IV 03/30/25 16:00 Glycopyrrolate 0.2 mg TID IV 03/30/25 22:00 04/02/25 14:58 0.2 MG Purified Water 200 ml Q4HR GT 04/01/25 08:30 04/02/25 14:00 200 ML Examination Physical examination: General Appearance: Alert, Oriented X3, anxious, on oxymizer 8L HEENT: Atraumatic, PERRLA, EOMI, Mucous membrane moist/pink Respiratory: Bilateral crackles. Cardiovascular: Regular rate, Normal S1, Normal S2, No murmurs, no chest wall tenderness Abdominal: Normal bowel sounds, Soft, No tenderness, No hepatospenomegaly, No masses Extremities: No clubbing, No cyanosis, No edema, Normal pulses, No tenderness/swelling Skin: No rashes, No breakdown, No significant lesion Neuro: Normal speech, right-sided weakness, Strength at 5/5 X2 ext, Normal tone, Sensation intact, grossly intact cranial nerves Psych/Mental Status: could not be assessed laboratory and microbiology Laboratory Tests 04/02/25 04:25 Test 04/02/25 04:25 Range/Units Serum Glucose 122 H 74-106 mg/dL Microbiology Date/Time Source Procedure Growth Status 03/16/25 16:36 Nose MRSA Screen - Final Complete 03/16/25 16:06 Sputum Gram Stain - Final Complete 03/16/25 16:06 Respiratory Culture - Final Stenotrophomonas maltophilia Escherichia coli Presumptive Milady albicans Complete 03/13/25 11:53 Stool Stool Culture - Final Complete 03/13/25 11:53 Stool Shiga Toxin I & II - Final Complete 03/12/25 11:55 Urine - [place]rios [place] Urine Culture - Final Complete 03/11/25 15:36 Blood Blood Culture - Final NO GROWTH AFTER 5 DAYS OF INCUBATION. Complete Labs and/or images reviewed: Labs reviewed by me, Image(s) reviewed by me Problem List/Assessment/Plan Problem List/Assessment/Plan Assessment and plan : NEURO: Acute metabolic encephalopathy secondary to acute ischemic stroke Acute or subacute ischemic stroke Hypertensive emergency Acute anxiety - CT head without contrast demonstrated new medial right parieto-occipital focal region of diminished parenchymal attenuation within the medial right parietal occipital lobes. This is concerning for an acute to subacute infarct with chronic multifocal lacunar infarct - MRI showed Infarcts involving multiple vascular territories involved medial right occipital lobe, posterior left occipital lobe, and left lopes radiata white matter tracts. Few additional tiny foci of diffusion restriction at the anterior right parietal cortex. - Neurology on board - hold aspirin and Plavix for now because of GI bleeding - atorvastatin 40 mg p.o. daily - Clonidine 0.2 mg p.o.tid, losartan 100 mg daily and IV hydralazine 20 mg q.4h PRN - IV Ativan 0.5 mg q.12 PRN CARDIOVASCULAR: Chronic diastolic heart failure with preserved ejection fraction - Echo on 11/12 demonstrated EF 65%, MILD LVH AND MILD LV DIASTOLIC DYSFUNCTION - elevated BNP - CxR showed Bilateral interstitial opacities, small left basilar consolidation and pleural effusion - IV Lasix 20 mg b.i.d. PULMONARY: Acute hypoxic respiratory failure S/P extubation GASTROINTESTINAL: Acute GI bleed upper vs lower Partial small Intestinal obstruction likely secondary to fecal impaction. Cholelithiasis C diff positive Elevated alkaline phosphatase -CT abdomen/pelvis showed low-grade distal partial obstruction due to fecal retention. - Gastrograffin study showed Contrast is identified within the colon by 3 hours. No evidence of bowel obstruction. -EGD on 03/13/25 showed 1-2 cm sliding-type hiatal hernia with severe grade C linear erosive esophagitis with esophageal ulcers extending into the distal 15 cm of the esophagus persistent duodenal bulb ulcer seen just inside the pyloric opening which was large coalescing with a visible sutures; there was no active bleeding or visible vessel but there was acute on chronic inflammation deformity of the postbulbar duodenal area and but there was area of debris and ongoing chronic ulceration inflammation and the endoscope was not advanced beyond this area mild gastritis and some old coffee-ground within the stomach - GB U/S demonstrated gallbladder wall thickening and pericholecystic edema, concerning for cholecystitis and dilated CBD up to 16 mm. - MRCP scan demonstrated Choledocholithiasis in the mid to distal common bile duct predominantly dependently. - NPO - failed swallow evaluation yesterday - Tube feeding at 40 mL/hours - IV Protonix 40 mg bid - Carafate suspension 1 g q.i.d. - Zofran 4 mg IV q.4 PRN - surgery recommended open cholecystectomy with common bile duct exploration with intrahepatic cholangiogram for tomorrow - Monitor Hand H, transfuse if hemoglobin less than 7 GENITOURINARY: GIOVANI on CKD likely hemodynamically mediated/VMN resolved - Monitor BMP METABOLIC: Hypernatremia Hypokalemia Hypophosphatemia - monitor BMP HEME: Severe microcytic hypochromic anemia due to GI bleeding Iron deficiency due to above Bilateral superficial thrombophlebitis - Patient received 4 units of PRBC - Monitor H&H INFECTIOUS DISEASE: Acute C diff infection - hold po vanc because of upper GI bleeding Nicotine dependence - Nicotine dependence 21 g/24 hours DIET: TPN, Tube feeding DVT prophylax: SCD GI prophylaxis: Protonix Bowel regimen: Code status: Full code LINES/DRAINS/ACCESS: Extubated on 03/27/25 Drips: tube feeding Barrios catheter: DISPOSITION: ICU Patient's status discussed with RN, Critical care time spent more than 73 minutes, including patient care, chart review, and updating the family. Excluding any procedures. Case discussed with Dr. Garcia Plan discussed with: Spouse, Other Dietary Evaluation Review Recommendations by RD: Increase Calorie Intake, PPN/TPN Comments: Pt meets criteria 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 based on severe wt loss 35lb/24% in 5 month, intake <50% estimated requirement x 5 days, severe muscle wasting and fat depletion Nutrition Recommendation: 1) PPN/TPN if NPO continues 2) Advance to soft diet as medically feasible 3) Ensure Enlive 240ml TID if pt resumes PO diet 4) Monitor NPO status, lab values, weight trend, and I/O Expected Outcomes/Goals: Intake to meet >75% estimated needs GI symptoms to improve Fu 2-3 days Food and Nutrition Intake (Sev: <50% est energy req 5days Interpretation of weight loss: >10% in 6 months Body Fat Depletion (Severe): Mod to Severe Depletion Muscle Mass (Severe): Mod to Severe Depletion Protein Calorie Malnutrition: Severe Is there a minimum of two crit: Yes CC Plasma Assessment Blood Product Administration S: 2037 Date of Service: Apr 02, 2025 Billing Provider: DIANA GARCIA MD Common Visit Codes: [id number] CARE 30-74 MIN SKY DASH RESIDENT Apr 02, 2025 15:41
[2025-04-02 17:03] LABS: Hematocrit 32.9 % (41.0-53.0); Hemoglobin 10.3 g/dL (13.5-17.5)
[2025-04-02] MEDS: POTASSIUM CHL 20MEQ/100ML 100 ML IV ONE (17:31)
--- NOTE | 2025-04-02 22:15 | DVHPN2 ---
Subjective DOS: 04/02/2025 Patient seen and examined at bedside. Remains on supplemental oxygen Overnight events reviewed Changes from previous H/P or p: No Changes Eyes: No Pain, No Vision change, No Conjunctivae inflammation, No Eyelid inflammation, No Other, No Redness ENT: No Ear pain, No Ear discharge, No Nose pain, No Nose discharge, No Nose congestion, No Mouth pain, No Mouth swelling, No Throat pain, No Throat swelling, No Other Cardiovascular: No Chest Pain, No Palpitations, No Orthopnea, No Paroxysmal Noc. Dyspnea, No Edema, No Lt Headedness, No Other Respiratory: No Cough, No Dry, No Shortness of breath, No SOB with excertion, No Wheezing, No Hemoptysis, No Pleuritic Pain, No Sputum, No Other Gastrointestinal: Melena Musculoskeletal: No other, No neck pain, No shoulder pain, No arm pain, No back pain, No hand pain, No leg pain, No foot pain Skin: No Rash, No Lesions, No Jaundice, No Bruising, No Other Objective Vitals Vital Signs Date Time Temp Pulse Resp B/P (MAP) Pulse Ox O2 Delivery O2 Flow Rate FiO2 04/02/25 21:00 100 26 88/58 (68) 94 04/02/25 20:00 97.5 97.5 04/02/25 20:00 Nasal Cannula* 2 28 Intake/Output Intake and Output 04/02/25 07:00 Intake Total 2540.2 ml Output Total 1850 ml Balance 690.2 ml Intake Oral 450 ml IV Total 960.2 ml Tube Feeding 530 ml Other 600 ml Output Urine Total 1850 ml Exam Gen.: Patient lying in bed in no apparent distress. On supplemental oxygen. Head: Normocephalic, atraumatic. Eyes: EOMI/PERRLA. Ears: Normal hearing. Normal anatomy. Neck/trachea: Trachea midline, supple. Nose: Normal external anatomy. Mouth: Moist mucous membranes. Chest: Decreased air entry bilaterally. No wheezing or rhonchi. Cardiovascular: Positive S1, positive S2. Regular rate and rhythm. Abdomen: Positive bowel sounds in all 4 quadrants. Soft, non-tender, non- distended. : Deferred. Rectal: Deferred. Skin: Warm, dry. Intact. Extremities: 2+ radial pulses bilaterally. No lower extremity edema. Neuro: Awake, alert, oriented x3. No gross motor or sensory deficits. Cranial nerves II through XII intact. Gait not assessed. Medications Current Medications Medications Dose Ordered Sig/Wally Route Start Time Stop Time Status Last Admin Dose Admin Ondansetron HCl 4 mg Q4HP PRN IV 03/12/25 00:00 Midazolam HCl 100 ml @ 1 mls/hr Q24H IV 03/16/25 16:30 03/23/25 14:52 2 MLS/HR Diagnostic Test (Pha) 1 strip Q6HR 03/16/25 18:00 04/02/25 17:32 1 STRIP Insulin Human Regular FOLLOW SLIDING SCALE Q6HR SC 03/16/25 18:00 03/31/25 12:03 2 UNITS Dextrose 50 ml UD IV 03/16/25 17:15 Folic Acid 1 mg/ Dextrose 50.2 ml @ 200.8 mls/ hr DAILY INJ 03/17/25 10:00 04/02/25 10:55 200.8 MLS/HR Thiamine HCl 100 mg DAILY IV 03/18/25 10:00 04/02/25 10:58 100 MG Atorvastatin Calcium 40 mg HS PO 03/17/25 22:00 Hold Sucralfate 1 gm QID@0600,1130,1700,2200 GT 03/23/25 17:00 04/02/25 17:31 1 GM Pantoprazole Sodium 40 mg BID IV 03/26/25 22:00 04/02/25 10:57 40 MG Ipratropium [place] 0.5 mg Q6HR NEB 03/28/25 12:00 04/02/25 18:03 0.5 MG Levalbuterol HCl 0.625 mg Q6HR NEB 03/28/25 12:00 04/02/25 18:03 0.625 MG Nicotine 1 patch DAILY TD 03/29/25 10:00 04/02/25 10:56 1 PATCH Lorazepam 0.5 mg [id number] PRN IV 03/28/25 19:30 04/02/25 19:53 0.5 MG Clonidine HCl 0.2 mg TID PO 03/29/25 14:00 04/02/25 14:57 0.2 MG Furosemide 20 mg BIDD IV 03/29/25 18:00 04/02/25 17:32 20 MG Losartan Potassium 100 mg DAILY PO 03/30/25 10:00 04/02/25 10:57 100 MG Enteral Nutritional Formula 1,000 ml 40ML/HR GT 03/30/25 10:00 04/02/25 14:59 1,000 ML Labetalol HCl 20 mg Q4HP PRN IV 03/30/25 16:00 Glycopyrrolate 0.2 mg TID IV 03/30/25 22:00 04/02/25 14:58 0.2 MG Purified Water 200 ml Q4HR GT 04/01/25 08:30 04/02/25 17:31 200 ML Laboratory Results Laboratory Tests 04/02/25 04:25 04/02/25 16:42 Chemistry Test 04/02/25 04:25 Albumin 2.8 g/dL (3.2-4.8) L Calcium Level 8.3 mg/dL (8.7-10.4) L Total Protein 6.3 g/dL (5.7-8.2) LFT Test 04/02/25 04:25 Alanine Aminotransferase (ALT) 46 U/L (7-40) H Alkaline Phosphatase 288 U/L (46-116) H Aspartate Amino Transferase (AST) 41 U/L (13-40) H Total Bilirubin 0.3 mg/dL (0.2-1.0) Urinalysis Test 03/12/25 05:00 03/12/25 10:20 03/17/25 06:30 Urine Color Light-yellow (Yellow) Urine Clarity Clear (Clear) Urine pH 5.5 (5.0-9.0) Urine Specific [place] 1.013 (1.001-1.035) Urine Protein Trace (Negative) H Urine Ketones Trace (Negative) Urine Blood Negative /uL (Negative) Urine Nitrite Negative (Negative) Urine Bilirubin Negative (Negative) Urine Urobilinogen Normal mg/dL (Negative) Urine Leukocyte Esterase Negative /uL (Negative) Urine RBC <1 /hpf (0 - 3) Urine Microscopic WBC < 1 /HPF (0-3) Urine Squamous Epithelial Cells None seen /hpf (<5) Urine Bacteria None seen /hpf (None Seen) Urine Glucose Normal mg/dL (Normal) Urine Protein/Creatinine Ratio 2.26 Urine Total Protein 23.6 mg/dL (1-14) H Urine Creatinine 56.14 mg/dL (30.0-125.0) Urine Sodium 13 mmol/L (40-220) L Microbiology Microbiology Date/Time Source Procedure Growth Status 03/16/25 16:36 Nose MRSA Screen - Final Complete 03/16/25 16:06 Sputum Gram Stain - Final Complete 03/16/25 16:06 Respiratory Culture - Final Stenotrophomonas maltophilia Escherichia coli Presumptive Milady albicans Complete 03/13/25 11:53 Stool Stool Culture - Final Complete 03/13/25 11:53 Stool Shiga Toxin I & II - Final Complete 03/12/25 11:55 Urine - [place] Urine Culture - Final Complete 03/11/25 15:36 Blood Blood Culture - Final NO GROWTH AFTER 5 DAYS OF INCUBATION. Complete Assessment/Plan Assessment/Plan Impression: Acute hypoxic respiratory failure Dependence on supplemental oxygen Acute metabolic encephalopathy Multiple strokes Chronic diastolic heart failure with preserved EF GI hemorrhage Anemia Acute kidney injury on chronic kidney disease Events: Patient remains on supplemental oxygen On 2 LPM NC Taper O2 as tolerated. Surgery plans for cholecystectomy in the AM. Failed swallow evaluation, has a very poor cough reflex Tolerating NG tube feedings well with minimal residuals Denies any abdominal pain H&H is stable Glycopyrrolate 0.2 mg IVP for increased secretions. Continue on ipratropium 0.5 mg q.6 hours Monitor hemoglobin Transfuse if Hgb less than 7.0 g/dL Continue sucralfate + Protonix BID FOBT positive GI recommendations appreciated. Hold off on anticoagulation and antiplatelet drugs because of likely active GI bleed Continue bronchodilators Continue antibiotics Incentive spirometry Blood pressure control Diurese with Lasix Monitor renal function Monitor electrolytes. Supplement as necessary. Potassium supplementation Monitor ins and outs. Pain control Avoid oversedation Tube feeds for nutritional support CXR on 03/30/25 shows stable pulmonary venous congestion. Stable small left- sided pleural effusion with dense atelectasis/consolidation at the left lung base. MRCP on 03/29/25 for dilated CBD and elevated alk-phos, MRCP suggestive of a mid CBD stone Right upper quadrant ultrasound showed evidence of gallbladder sludge and inflammation Labs and imaging reviewed. Rest of plan as noted below. Plan: S/p extubation on 03/27/25 On supplemental oxygen Titrate to keep O2 sats above 92%. Continue antibiotics. Follow up cultures. Pressors as necessary for hemodynamic support Titrate to keep mean arterial pressure greater than 65 mmHg. Monitor hemoglobin Transfuse if less than 7.0 g/dL. NGT to LIS Protonix drip F/u GI and Surgery recs Accu-Cheks, ISS PRN Monitor renal function Monitor electrolytes. Supplement as necessary. Monitor ins and outs. Maintain euvolemia. TPN for nutritional support Counseled against vaping and marijuana use. GI prophylaxis. DVT prophylaxis. Prognosis: Poor given patient's multiple co-morbidities. Condition: Critical Rest of plan per hospitalist and other consultants. A total of 35 minutes of critical care time was spent reviewing the patient record, examining the patient, making a diagnostic and therapeutic plan, discussing this plan with the medical personnel, following up on diagnostic studies and following the patient for clinical stability excluding any and all procedures. At least 50% of this time was spent in direct, [id number] contact. Thank you, Dr. Khoury, for allowing me to participate in this patient's care. Further recommendations will depend on the patient's clinical course. Please do not hesitate to contact me if you have any questions or concerns. This medical document was created using an electronic medical record system with [employer] dictation system. Although these documentations are being carefully reviewed, there may still be some phonetic and typographical changes. The errors are purely typographical, due to imperfection on the software program, and do not reflect any compromise in the patient's medical care. Plan discussed with: Patient, Other (JASPER Erwin) Visit Coding Pulmonary Billing Provider: ARIE LOPEZ MD Date of Service if different f: Apr 02, 2025 Common Visit Codes: [id number] INP/OBS CARE(HIGH) ARIE LOPEZ MD Apr 02, 2025 22:15
[2025-04-03] VITALS (68 sets, daily range): BP systolic 90–126; BP diastolic 58–91; PULSE 87–122; RESP 11–28; TEMP 97.5–98.3; O2SAT 90–100
[2025-04-03 04:05] LABS: Hemoglobin 10.9 g/dL (13.5-17.5); Mean Corpuscular Hemoglobin 27.3 pg (28.0-32.0); Nucleated Red Blood Cells % 0.1 %
[2025-04-03 04:08] LABS: Hematocrit 33.5 % (41.0-53.0); Mean Corpuscular Volume 83.9 fL (80.0-100.0)
[2025-04-03 04:19] LABS: Anion Gap 13 (5-15); BUN/Creatinine Ratio 20.8 (10.0-20.0); Bilirubin, Total 0.4 mg/dL (0.2-1.0); Blood Urea Nitrogen 22 mg/dL (9-23); Calcium 8.7 mg/dL (8.7-10.4); Carbon Dioxide 29 mmol/L (20-31); Glucose 88 mg/dL (74-106); Potassium 3.5 mmol/L (3.5-5.1); Sodium 138 mmol/L (136-145); Total Protein 7.2 g/dL (5.7-8.2)
[2025-04-03 04:21] LABS: Alanine Aminotransferase 42 U/L (7-40); Albumin 3.2 g/dL (3.2-4.8); Alkaline Phosphatase 270 U/L (46-116); Chloride 96 mmol/L (98-107); INR 1.14 (0.9-1.15); Prothrombin Time 11.9 sec (9.3-11.8)
--- NOTE | 2025-04-03 05:45 | DVH ---
CHEST RADIOGRAPH Indication: Preoperative evaluation Technique: Single frontal view of the chest was obtained COMPARISON: XY CHEST XRAY 1 VIEW on DOS: 03/30/25, XY CHEST XRAY 1 VIEW on DOS: 03/29/25, XY CHEST XRAY 1 VIEW on DOS: 03/29/25, XY CHEST XRAY 1 VIEW on DOS: 03/28/25, XY CHEST PORTABLE on DOS: 03/28/25 FINDINGS: Mild left basilar atelectasis. Otherwise, and pleural spaces are clear. Cardiac silhouette and freedom are within normal limits. Bones and soft tissues demonstrate no significant abnormality. IMPRESSION: No acute disease.
[2025-04-03] MEDS: BUPIVACAINE 0.25% INJ 50ML VIAL ONE ×2 (06:59→07:05)
[2025-04-03] MEDS: IOHEXOL 300 MG/ML 100ML BOTTLE IJ ONE (07:03)
[2025-04-03] MEDS: LIDOCAINE W/ EPINEPHRINE 1% 20ML VIAL ONE (07:05)
[2025-04-03] MEDS ORDERED: KETAMINE 50mg/ML 1ml syringe ONE (07:07)
[2025-04-03] MEDS ORDERED: ONDANSETRON HCL 4 MG/2 ML VIAL ONE (07:07)
[2025-04-03] MEDS ORDERED: ROCURONIUM 10MG/ML 10ML VIAL IV ONE (07:07)
[2025-04-03] MEDS ORDERED: PROPOFOL 10 MG/ML 20 ML IV ONE (07:07)
[2025-04-03] MEDS ORDERED: SUGAMMADEX 200mg/2ml Vial (100MG/ML) IV ONE (07:07)
[2025-04-03] MEDS ORDERED: LIDOCAINE 2% (LOCAL ANESTH.) PF 5ml SDV ONE (07:07)
[2025-04-03] MEDS ORDERED: GLYCOPYRROLATE 0.2 MG/ML 1ML VIAL ONE (07:07)
[2025-04-03] MEDS ORDERED: fentaNYL CITRATE 100 MCG/2 ML VL ONE (07:07)
[2025-04-03] MEDS: ACETAMINOPHEN IV 100 ML IV ONE (07:21)
[2025-04-03] MEDS: ACETAMINOPHEN IV 1000 MG/100ML (10MG/ML) IV ONE (07:30)
[2025-04-03] MEDS: ceFAZolin 2 GM/D5W50ml 50 ML IV ONE (07:38)
[2025-04-03] MEDS ORDERED: SODIUM CHLORIDE LOCK 10 ML ONE (07:59)
[2025-04-03] MEDS ORDERED: PHENYLEPHRINE HCL 10 MG/ML VL ONE (07:59)
[2025-04-03] MEDS ORDERED: ESMOLOL HCL 10 ML IV ONE (08:04)
[2025-04-03] MEDS: POVIDONE IODINE 10 % TOPICAL OINT 30GM TOP ONE (09:35)
[2025-04-03] MEDS ORDERED: TPN PER PHARMACY 0 ML IV SCH (10:00)
[2025-04-03] MEDS ORDERED: FLUMAZENIL 0.1 MG/ML INJ 10ML MDV IV PRN (10:15)
[2025-04-03] MEDS ORDERED: ONDANSETRON HCL 4 MG/2 ML VIAL IV PRN (10:15)
[2025-04-03] MEDS ORDERED: NALOXONE HCL 0.4 MG/ML VIAL IV PRN (10:15)
[2025-04-03] MEDS ORDERED: fentaNYL CITRATE 100 MCG/2 ML VL IV PRN (10:15)
[2025-04-03] MEDS ORDERED: HYDROmorphone HCL 2 MG/ML VL/or syr IV PRN (10:15)
[2025-04-03] MEDS ORDERED: hydrALAZINE HCL 20 MG/ML VL IV PRN (10:15)
--- NOTE | 2025-04-03 10:37 | DVH ---
C-ARM FLUOROSCOPY: PROCEDURE: Cholangiogram FINDINGS: Spot intraoperative C arm radiographs demonstrating Cholangiogram with filling defect noted in the common bile duct.. IMPRESSION: Please refer to surgical report for detailed findings.
--- NOTE | 2025-04-03 10:40 | DVHPN2 ---
Progress Note - Dictate Date Seen: Apr 03, 2025 Medical Necessity Reason Pt with a Central, PICC or Fol: Yes The following are medically ne: Barrios Catheter vital signs Vital Sign Date Time Temp Pulse Resp B/P (MAP) Pulse Ox O2 Delivery O2 Flow Rate FiO2 04/03/25 10:01 105 19 96 Mask 8.0 04/03/25 10:01 96 04/03/25 06:00 111/81 (91) 04/03/25 04:00 97.5 97.5 Total Intake and Output 04/02/25 04/02/25 04/03/25 15:00 23:00 07:00 Intake Total 200.8 ml 725 ml 352 ml Output Total 950 ml 900 ml Balance 200.8 ml -225 ml -548 ml medications Current Medications Medications Dose Ordered Sig/Wally Route Start Time Stop Time Status Last Admin Dose Admin Ondansetron HCl 4 mg Q4HP PRN IV 03/12/25 00:00 Midazolam HCl 100 ml @ 1 mls/hr Q24H IV 03/16/25 16:30 03/23/25 14:52 2 MLS/HR Diagnostic Test (Pha) 1 strip Q6HR 03/16/25 18:00 04/03/25 05:50 1 STRIP Insulin Human Regular FOLLOW SLIDING SCALE Q6HR SC 03/16/25 18:00 03/31/25 12:03 2 UNITS Dextrose 50 ml UD IV 03/16/25 17:15 Folic Acid 1 mg/ Dextrose 50.2 ml @ 200.8 mls/ hr DAILY INJ 03/17/25 10:00 04/02/25 10:55 200.8 MLS/HR Thiamine HCl 100 mg DAILY IV 03/18/25 10:00 04/02/25 10:58 100 MG Atorvastatin Calcium 40 mg HS PO 03/17/25 22:00 Hold Sucralfate 1 gm QID@0600,1130,1700,2200 GT 03/23/25 17:00 04/02/25 22:52 1 GM Pantoprazole Sodium 40 mg BID IV 03/26/25 22:00 04/02/25 22:39 40 MG Ipratropium [place] 0.5 mg Q6HR NEB 03/28/25 12:00 04/03/25 00:10 0.5 MG Levalbuterol HCl 0.625 mg Q6HR NEB 03/28/25 12:00 04/03/25 00:10 0.625 MG Nicotine 1 patch DAILY TD 03/29/25 10:00 04/02/25 10:56 1 PATCH Lorazepam 0.5 mg [id number] PRN IV 03/28/25 19:30 04/02/25 19:53 0.5 MG Clonidine HCl 0.2 mg TID PO 03/29/25 14:00 04/02/25 14:57 0.2 MG Furosemide 20 mg BIDD IV 03/29/25 18:00 04/03/25 05:36 20 MG Losartan Potassium 100 mg DAILY PO 03/30/25 10:00 04/02/25 10:57 100 MG Enteral Nutritional Formula 1,000 ml 40ML/HR GT 03/30/25 10:00 04/02/25 14:59 1,000 ML Labetalol HCl 20 mg Q4HP PRN IV 03/30/25 16:00 Glycopyrrolate 0.2 mg TID IV 03/30/25 22:00 04/03/25 05:36 0.2 MG Purified Water 200 ml Q4HR GT 04/01/25 08:30 04/02/25 22:00 200 ML Potassium Chloride/Dextrose/ Sod Cl 1,000 ml @ 120 mls/hr Q8H20M IV 04/03/25 10:00 Ceftriaxone Sodium 50 ml @ 100 mls/hr DAILY@09 IV 04/04/25 09:00 Metronidazole 100 ml @ 100 mls/hr Q8HR IV 04/03/25 14:00 Ondansetron HCl 4 mg Q4HPRN PRN IV 04/03/25 10:00 Amino Acids 0 ml @ 0 mls/hr PER PHARMACY IV 04/03/25 10:00 Hydralazine HCl 5 mg Q10M PRN IV 04/03/25 10:15 04/03/25 11:06 Ephedrine Sulfate 10 mg Q10M PRN IV 04/03/25 10:15 04/03/25 10:56 Hydromorphone HCl 0.5 mg Q10M PRN IV 04/03/25 10:15 04/03/25 10:56 laboratory and microbiology Laboratory Tests 04/03/25 03:12 Test 04/03/25 03:12 Range/Units Serum Glucose 88 74-106 mg/dL Assessment/Plan Impression Acute hypoxemic respiratory failure Multiple strokes GI bleed Anemia GIOVANI Patient seen and examined in ICU Events Low oxygen requirements On 2 liters nasal cannula Extubated s/p cholecystectomy Labs and imaging reviewed Management Supplemental oxygen Titrate to maintain sats 90% or above Incentive spirometry Aspiration precautions Advance diet as tolerated Continue antibiotics F/u cultures Bronchodilators Monitor renal function Monitor electrolytes Supplement as needed Monitor hemoglobin F/u GI DVT prophylaxis Critical care time 35 minutes Dietary Evaluation Review Recommendations by RD: Increase Calorie Intake, PPN/TPN Comments: Pt meets criteria 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 based on severe wt loss 35lb/24% in 5 month, intake <50% estimated requirement x 5 days, severe muscle wasting and fat depletion Nutrition Recommendation: 1) PPN/TPN if NPO continues 2) Advance to soft diet as medically feasible 3) Ensure Enlive 240ml TID if pt resumes PO diet 4) Monitor NPO status, lab values, weight trend, and I/O Expected Outcomes/Goals: Intake to meet >75% estimated needs GI symptoms to improve Fu 2-3 days Food and Nutrition Intake (Sev: <50% est energy req 5days Interpretation of weight loss: >10% in 6 months Body Fat Depletion (Severe): Mod to Severe Depletion Muscle Mass (Severe): Mod to Severe Depletion Protein Calorie Malnutrition: Severe Is there a minimum of two crit: Yes Plan discussed with: Patient CC Plasma Assessment Blood Product Administration S: [id number] VALENTE DEE MD Apr 03, 2025 10:40
--- NOTE | 2025-04-03 11:49 | DVHOP ---
DATE OF SURGERY: 04/03/2025 PREOPERATIVE DIAGNOSES: * Choledocholithiasis. * Cholecystitis. POSTOPERATIVE DIAGNOSES: * Adhesions. * Raging cholecystitis. * Chronic cholecystitis. * Common bile duct dilatation. OPERATION PERFORMED: * Open cholecystectomy. * Common bile duct exploration. * Intraoperative cholangiogram. DESCRIPTION OF PROCEDURE: Under general endotracheal anesthesia with the patient's skin prepped and draped, a subcostal incision was made on the right upper abdomen of the patient and the incision was deepened through subcutaneous tissues and muscle into the peritoneal cavity. The right upper quadrant and peritoneal cavity essentially obliterated by adhesions. Numerous loops of bowel adherent to the anterior abdominal wall and to the inferior surface of the liver. Tedious careful dissection was undertaken in order to visualize the gallbladder, which was massively distended, chronically inflamed, and surrounded by much inflammatory reaction and scarring. The gallbladder was aspirated of bile, which was sent for cultures and sensitivities, and subsequently meticulous dissection of the infundibular portion of the gallbladder ensued demonstrating a cystic duct, which was almost totally occluded by the twisting of the gallbladder and a common bile duct dilated to approximately 1.5 cm in diameter. The cystic artery was identified, circumferentially dissected, ligated, and divided. Subsequently, the cystic duct was similarly dissected with meticulous tedious dissection due to much inflammation and scarring. The cystic duct was then occluded with metallic strips and divided. 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 Following removal of the gallbladder from the field, the common duct was identified and cleansed of scar tissue. Two stay sutures of 3-0 Prolene were placed and a choledochotomy was fashioned measuring approximately 1.5 cm in length. Through the choledochotomy, the common duct was explored with stone forceps as well as with Patricia catheters. Stone debris was obtained too small to submit, as it disintegrated with irrigation. Following passage of a 4 mm dilator through the sphincter into the bowel, a T-tube #18 Korean was fashioned and placed into the choledochotomy. The choledochotomy was then closed using 3-0 Monocryl suture. The suture line was tested for water tightness, which indeed was proven. There was no evidence of extravasation. The T-tube was then exteriorized through the anterior abdominal wall and a T-tube cholangiogram was obtained (x2) demonstrating a stricture at the distal common bile duct, having no evidence of remaining stones and contrast flowing freely into the duodenum. The choledochotomy was then closed using 3-0 Monocryl suture with the stay sutures of Prolene 3-0 were removed from the wall of the gallbladder. The right upper quadrant was profusely irrigated. A Wisam-Hensley drain was inserted into the right upper quadrant and exteriorized separately. The T-tube having been exteriorized through separate incision and the Wisam-Hensley drain were secured with interrupted 2-0 nylon sutures. Following assurance of complete hemostasis and report of accurate needle and sponge count by the nurses, the abdomen was closed using #1 double-stranded PDS suture for approximation of the muscle and fascia. Subcutaneous tissues were approximated using Monocryl suture. Skin approximating metallic clips. The patient remained hemodynamically stable throughout the procedure, left the operating room following an accurate needle and sponge count. An attempt to get communicating with his , Anastasia, at [phone] went unanswered. MD NISHANT Gibson/EDGAR/LEONOR TID: [id number] RECEIPT: [id number]
[2025-04-03] MEDS: D5W/SOD CHL 0.45%/KCL 40MEQ 1,000 ML IV SCH (12:24)
--- NOTE | 2025-04-03 13:42 | DVHPN2 ---
Progress Note - Dictate Date Seen: Apr 03, 2025 Has the PT tested + for MRSA If YES, has PT been informed?: No Medical Necessity Reason Pt with a Central, PICC or Fol: Yes The following are medically ne: Barrios Catheter Subjective Patient is in ICU 101, extubated and awake Underwent a open cholecystectomy today with CBD exploration T-tube was then placed; patient had extensive inflammatory changes No active GI bleeding reported, hemoglobin stable at 10.9 Patient underwent an MRCP yesterday for a dilated CBD and elevated alk-phos, MRCP suggestive of a mid CBD stone Right upper quadrant ultrasound showed evidence of gallbladder sludge and inflammation Hepatitis panel is negative and HIV is negative and ferritin is normal vital signs Vital Sign Date Time Temp Pulse Resp B/P (MAP) Pulse Ox O2 Delivery O2 Flow Rate FiO2 04/03/25 13:15 116 20 103/73 (83) 98 04/03/25 12:26 Nasal Cannula* 3 32 04/03/25 12:15 97.6 97.6 Total Intake and Output 04/02/25 04/02/25 04/03/25 15:00 23:00 07:00 Intake Total 200.8 ml 725 ml 352 ml Output Total 950 ml 900 ml Balance 200.8 ml -225 ml -548 ml medications Current Medications Medications Dose Ordered Sig/Wally Route Start Time Stop Time Status Last Admin Dose Admin Midazolam HCl 100 ml @ 1 mls/hr Q24H IV 03/16/25 16:30 03/23/25 14:52 2 MLS/HR Diagnostic Test (Pha) 1 strip Q6HR 03/16/25 18:00 04/03/25 12:14 1 STRIP Insulin Human Regular FOLLOW SLIDING SCALE Q6HR SC 03/16/25 18:00 03/31/25 12:03 2 UNITS Dextrose 50 ml UD IV 03/16/25 17:15 Folic Acid 1 mg/ Dextrose 50.2 ml @ 200.8 mls/ hr DAILY INJ 03/17/25 10:00 04/03/25 12:10 200.8 MLS/HR Thiamine HCl 100 mg DAILY IV 03/18/25 10:00 04/03/25 12:12 100 MG Atorvastatin Calcium 40 mg HS PO 03/17/25 22:00 Hold Sucralfate 1 gm QID@0600,1130,1700,2200 GT 03/23/25 17:00 04/02/25 22:52 1 GM Pantoprazole Sodium 40 mg BID IV 03/26/25 22:00 04/03/25 12:12 40 MG Ipratropium [place] 0.5 mg Q6HR NEB 03/28/25 12:00 04/03/25 12:27 0.5 MG Levalbuterol HCl 0.625 mg Q6HR NEB 03/28/25 12:00 04/03/25 12:27 0.625 MG Nicotine 1 patch DAILY TD 03/29/25 10:00 04/03/25 12:14 1 PATCH Lorazepam 0.5 mg [id number] PRN IV 03/28/25 19:30 04/02/25 19:53 0.5 MG Clonidine HCl 0.2 mg TID PO 03/29/25 14:00 Hold 04/02/25 14:57 0.2 MG Furosemide 20 mg BIDD IV 03/29/25 18:00 04/03/25 05:36 20 MG Losartan Potassium 100 mg DAILY PO 03/30/25 10:00 04/02/25 10:57 100 MG Enteral Nutritional Formula 1,000 ml 40ML/HR GT 03/30/25 10:00 04/02/25 14:59 1,000 ML Glycopyrrolate 0.2 mg TID IV 03/30/25 22:00 04/03/25 05:36 0.2 MG Potassium Chloride/Dextrose/ Sod Cl 1,000 ml @ 120 mls/hr Q8H20M IV 04/03/25 10:00 04/03/25 12:24 120 MLS/HR Ceftriaxone Sodium 50 ml @ 100 mls/hr DAILY@09 IV 04/04/25 09:00 Metronidazole 100 ml @ 100 mls/hr Q8HR IV 04/03/25 14:00 Ondansetron HCl 4 mg Q4HPRN PRN IV 04/03/25 10:00 Amino Acids 0 ml @ 0 mls/hr PER PHARMACY IV 04/03/25 10:00 Fat Emulsion Intravenous 50 ml/ Sodium Chloride 10 meq/Potassium Chloride 20 meq/ Calcium Gluconate 2.32 meq/ Magnesium Sulfate 4 meq/ Multivitamins 10 ml/Chromium/ Copper/Manganese/ Zinc 1 ml/Amino Acids/Dextrose/ Purified Water 879.4892 ml @ 37 mls/hr [id number] IV 04/03/25 22:00 04/04/25 21:59 Labetalol HCl 5 mg Q4HP PRN IV 04/03/25 11:30 Hydromorphone HCl 0.5 mg Q4HPRN PRN IV 04/03/25 11:30 objective General-cachectic male HEENT-normocephalic, no icterus, no pallor, neck supple Respiratory-fair air entry bilateral, no rhonchi, no wheeze [id number] heard, no murmurs appreciated Abdominal-soft, nontender, nondistended Musculoskeletal-no pedal edema, no calf tenderness Genitourinary-deferred Neuro-awake alert oriented x3, Psychiatric-not agitated, cooperative, laboratory and microbiology Laboratory Tests 04/03/25 03:12 Test 04/03/25 03:12 Range/Units Serum Glucose 88 74-106 mg/dL Problems(with codes): (1) Elevated liver function tests (2) Choledocholithiasis (3) C. 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 based on severe wt loss 35lb/24% in 5 month, intake <50% estimated requirement x 5 days, severe muscle wasting and fat depletion Nutrition Recommendation: 1) PPN/TPN if NPO continues 2) Advance to soft diet as medically feasible 3) Ensure Enlive 240ml TID if pt resumes PO diet 4) Monitor NPO status, lab values, weight trend, and I/O Expected Outcomes/Goals: Intake to meet >75% estimated needs GI symptoms to improve Fu 2-3 days Food and Nutrition Intake (Sev: <50% est energy req 5days Interpretation of weight loss: >10% in 6 months Body Fat Depletion (Severe): Mod to Severe Depletion Muscle Mass (Severe): Mod to Severe Depletion Protein Calorie Malnutrition: Severe Is there a minimum of two crit: Yes Plan discussed with: Patient, Other (Dr Velasco and ICU Nurse) CC Plasma Assessment Blood Product Administration S: [id number] GURJIT NOBLE MD Apr 03, 2025 13:42
--- NOTE | 2025-04-03 16:18 | DVHPNRES ---
Progress Note Date Seen: Apr 03, 2025 Resident Creating Document: SKY DASH RESIDENT Has the PT tested + for MRSA If YES, has PT been informed?: No Medical Necessity Reason Pt with a Central, PICC or Fol: Yes The following are medically ne: Barrios Catheter Subjective Review of Systems Jossue Perez is a 49-year-old male past medical history of hypertension, hyperlipidemia, DVT, 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 The patient mentions he had passage of stool 7 times yesterday which was tarry black in color. Patient mentions he also had abdominal pain, nausea and a few episodes of vomiting for the last 2 days. He denies any fever,weakness or weight loss. He reports history of perforated duodenal ulcer s/p exp lap with prolonged ICU stay complicated with sepsis from cholecystitis s/p tracheostomy and removal. On arrival to the hospital, his hemoglobin was 4.2 and he had to be transfused with 2 units of PRBCs. He was kept NPO and NG tube placed. GI was consulted and they recommended continuing with IV Protonix drip scheduled patient for EGD on 03/13/2025. Patient was seen and examined on the bedside. He underwent open cholecystectomy, common bile duct exploration and intraoperative cholangiogram and the procedure was uneventful. Postprocedure patient came back to ICU with nasal cannula on 3 L and saturating 97%. The patient was alert and oriented x3 and complaint of mild abdominal pain. Objective vital signs Vital Sign Date Time Temp Pulse Resp B/P (MAP) Pulse Ox O2 Delivery O2 Flow Rate FiO2 04/03/25 15:15 122 22 113/78 (90) 97 04/03/25 14:00 Nasal Cannula* 2 28 04/03/25 12:15 97.6 97.6 Total Intake and Output 04/02/25 04/02/25 04/03/25 14:59 22:59 06:59 Intake Total 200.8 ml 725 ml 352 ml Output Total 950 ml 900 ml Balance 200.8 ml -225 ml -548 ml medications Current Medications Medications Dose Ordered Sig/Wally Route Start Time Stop Time Status Last Admin Dose Admin Midazolam HCl 100 ml @ 1 mls/hr Q24H IV 03/16/25 16:30 03/23/25 14:52 2 MLS/HR Diagnostic Test (Pha) 1 strip Q6HR 03/16/25 18:00 04/03/25 12:14 1 STRIP Insulin Human Regular FOLLOW SLIDING SCALE Q6HR SC 03/16/25 18:00 03/31/25 12:03 2 UNITS Dextrose 50 ml UD IV 03/16/25 17:15 Folic Acid 1 mg/ Dextrose 50.2 ml @ 200.8 mls/ hr DAILY INJ 03/17/25 10:00 04/03/25 12:10 200.8 MLS/HR Thiamine HCl 100 mg DAILY IV 03/18/25 10:00 04/03/25 12:12 100 MG Atorvastatin Calcium 40 mg HS PO 03/17/25 22:00 Hold Sucralfate 1 gm QID@0600,1130,1700,2200 GT 03/23/25 17:00 04/02/25 22:52 1 GM Pantoprazole Sodium 40 mg BID IV 03/26/25 22:00 04/03/25 12:12 40 MG Ipratropium [place] 0.5 mg Q6HR NEB 03/28/25 12:00 04/03/25 12:27 0.5 MG Levalbuterol HCl 0.625 mg Q6HR NEB 03/28/25 12:00 04/03/25 12:27 0.625 MG Nicotine 1 patch DAILY TD 03/29/25 10:00 04/03/25 12:14 1 PATCH Lorazepam 0.5 mg [id number] PRN IV 03/28/25 19:30 04/02/25 19:53 0.5 MG Clonidine HCl 0.2 mg TID PO 03/29/25 14:00 Hold 04/02/25 14:57 0.2 MG Furosemide 20 mg BIDD IV 03/29/25 18:00 04/03/25 05:36 20 MG Losartan Potassium 100 mg DAILY PO 03/30/25 10:00 04/02/25 10:57 100 MG Enteral Nutritional Formula 1,000 ml 40ML/HR GT 03/30/25 10:00 04/02/25 14:59 1,000 ML Glycopyrrolate 0.2 mg TID IV 03/30/25 22:00 04/03/25 14:59 0.2 MG Potassium Chloride/Dextrose/ Sod Cl 1,000 ml @ 120 mls/hr Q8H20M IV 04/03/25 10:00 04/03/25 12:24 120 MLS/HR Ceftriaxone Sodium 50 ml @ 100 mls/hr DAILY@09 IV 04/04/25 09:00 Metronidazole 100 ml @ 100 mls/hr Q8HR IV 04/03/25 14:00 04/03/25 14:58 100 MLS/HR Ondansetron HCl 4 mg Q4HPRN PRN IV 04/03/25 10:00 Amino Acids 0 ml @ 0 mls/hr PER PHARMACY IV 04/03/25 10:00 Fat Emulsion Intravenous 50 ml/ Sodium Chloride 10 meq/Potassium Chloride 20 meq/ Calcium Gluconate 2.32 meq/ Magnesium Sulfate 4 meq/ Multivitamins 10 ml/Chromium/ Copper/Manganese/ Zinc 1 ml/Amino Acids/Dextrose/ Purified Water 879.4892 ml @ 37 mls/hr [id number] IV 04/03/25 22:00 04/04/25 21:59 Labetalol HCl 5 mg Q4HP PRN IV 04/03/25 11:30 Hydromorphone HCl 0.5 mg Q4HPRN PRN IV 04/03/25 11:30 Examination Physical examination: General Appearance: Alert, Oriented X3, on nasal canula 3L HEENT: Atraumatic, PERRLA, EOMI, Mucous membrane moist/pink Respiratory: Bilateral crackles. Cardiovascular: Regular rate, Normal S1, Normal S2, No murmurs, no chest wall tenderness Abdominal: Surgical wound with dressing on the right upper quadrant with 2 KWAN drain, mildly tender, No hepatospenomegaly, No masses Extremities: No clubbing, No cyanosis, No edema, Normal pulses, No tenderness/swelling Skin: No rashes, No breakdown, No significant lesion Neuro: Normal speech, right-sided weakness, Strength at 5/5 X2 ext, Normal tone, Sensation intact, grossly intact cranial nerves Psych/Mental Status: could not be assessed laboratory and microbiology Laboratory Tests 04/03/25 03:12 Test 04/03/25 03:12 Range/Units Serum Glucose 88 74-106 mg/dL Microbiology Date/Time Source Procedure Growth Status 03/16/25 16:36 Nose MRSA Screen - Final Complete 03/16/25 16:06 Sputum Gram Stain - Final Complete 03/16/25 16:06 Respiratory Culture - Final Stenotrophomonas maltophilia Escherichia coli Presumptive Milady albicans Complete 03/13/25 11:53 Stool Stool Culture - Final Complete 03/13/25 11:53 Stool Shiga Toxin I & II - Final Complete 03/12/25 11:55 Urine - Barrios [place] Urine Culture - Final Complete 03/11/25 15:36 Blood Blood Culture - Final NO GROWTH AFTER 5 DAYS OF INCUBATION. Complete Labs and/or images reviewed: Labs reviewed by me, Image(s) reviewed by me Problem List/Assessment/Plan Problem List/Assessment/Plan Assessment and plan : NEURO: Acute metabolic encephalopathy secondary to acute ischemic stroke Acute or subacute ischemic stroke Hypertensive emergency Acute anxiety - CT head without contrast demonstrated new medial right parieto-occipital focal region of diminished parenchymal attenuation within the medial right parietal occipital lobes. This is concerning for an acute to subacute infarct with chronic multifocal lacunar infarct - MRI showed Infarcts involving multiple vascular territories involved medial right occipital lobe, posterior left occipital lobe, and left lopes radiata white matter tracts. Few additional tiny foci of diffusion restriction at the anterior right parietal cortex. - Neurology on board - hold aspirin and Plavix for now because of GI bleeding - atorvastatin 40 mg p.o. daily - Clonidine 0.2 mg p.o.tid, losartan 100 mg daily and IV labetalol 5 mg q.2h PRN SBP>150 - IV Ativan 0.5 mg q.12 PRN CARDIOVASCULAR: Chronic diastolic heart failure with preserved ejection fraction - Echo on 11/12 demonstrated EF 65%, MILD LVH AND MILD LV DIASTOLIC DYSFUNCTION - elevated BNP - CxR showed Bilateral interstitial opacities, small left basilar consolidation and pleural effusion - IV Lasix 20 mg b.i.d. PULMONARY: Acute hypoxic respiratory failure S/P extubation GASTROINTESTINAL: Acute GI bleed upper vs lower Partial small Intestinal obstruction likely secondary to fecal impaction. Cholelithiasis C diff positive Elevated alkaline phosphatase -CT abdomen/pelvis showed low-grade distal partial obstruction due to fecal retention. - Gastrograffin study showed Contrast is identified within the colon by 3 hours. No evidence of bowel obstruction. -EGD on 03/13/25 showed 1-2 cm sliding-type hiatal hernia with severe grade C linear erosive esophagitis with esophageal ulcers extending into the distal 15 cm of the esophagus persistent duodenal bulb ulcer seen just inside the pyloric opening which was large coalescing with a visible sutures; there was no active bleeding or visible vessel but there was acute on chronic inflammation deformity of the postbulbar duodenal area and but there was area of debris and ongoing chronic ulceration inflammation and the endoscope was not advanced beyond this area mild gastritis and some old coffee-ground within the stomach - GB U/S demonstrated gallbladder wall thickening and pericholecystic edema, concerning for cholecystitis and dilated CBD up to 16 mm. - MRCP scan demonstrated Choledocholithiasis in the mid to distal common bile duct predominantly dependently. - Patient underwent open cholecystectomy with common bile duct exploration with intrahepatic cholangiogram . - NPO - IV D5 with 0.45% normal saline with 40 mEq potassium at 100 mL/hours - IV ceftriaxone 1 g daily and IV metronidazole 500 mg t.i.d. - TPN per pharmacy - IV Protonix 40 mg bid - Carafate suspension 1 g q.i.d. - Zofran 4 mg IV q.4 PRN - Monitor Hand H, transfuse if hemoglobin less than 7 GENITOURINARY: GIOVANI on CKD likely hemodynamically mediated/VMN resolved - Monitor BMP METABOLIC: Hypernatremia Hypokalemia Hypophosphatemia - monitor BMP HEME: Severe microcytic hypochromic anemia due to GI bleeding Iron deficiency due to above Bilateral superficial thrombophlebitis - Patient received 4 units of PRBC - Monitor H&H INFECTIOUS DISEASE: Acute C diff infection - hold po vanc because of upper GI bleeding Nicotine dependence - Nicotine dependence 21 g/24 hours DIET: TPN, NPO DVT prophylax: SCD GI prophylaxis: Protonix Bowel regimen: Code status: Full code LINES/DRAINS/ACCESS: Extubated on 03/27/25 Drips: TPN Barrios catheter: DISPOSITION: ICU Patient's status discussed with RN, Critical care time spent more than 73 minutes, including patient care, chart review, and updating the family. Excluding any procedures. Case discussed with Dr. Garcia Plan discussed with: Spouse, Other (RN) My Orders My Orders Orders - SKY DASH RESIDENT Procedure Category Date Status Time Communication Order ORDERS 04/02/25 Transmitted 19:22 Labetalol Hcl PHA 04/03/25 In Process (Labetalol Hcl) 11:30 Npo (Nothing By DIET 04/03/25 Transmitted Mouth) Diet Lunch Incentive Spirometry ORDERS 04/03/25 Transmitted 11:29 Hydromorphone PHA 04/03/25 In Process Injection (Dilaudid 11:30 * Picc Line Consult CONS 04/03/25 Transmitted 14:32 Dietary Evaluation Review Recommendations by RD: Increase Calorie Intake, PPN/TPN Comments: Pt meets criteria 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 based on severe wt loss 35lb/24% in 5 month, intake <50% estimated requirement x 5 days, severe muscle wasting and fat depletion Nutrition Recommendation: 1) PPN/TPN if NPO continues 2) Advance to soft diet as medically feasible 3) Ensure Enlive 240ml TID if pt resumes PO diet 4) Monitor NPO status, lab values, weight trend, and I/O Expected Outcomes/Goals: Intake to meet >75% estimated needs GI symptoms to improve Fu 2-3 days Food and Nutrition Intake (Sev: <50% est energy req 5days Interpretation of weight loss: >10% in 6 months Body Fat Depletion (Severe): Mod to Severe Depletion Muscle Mass (Severe): Mod to Severe Depletion Protein Calorie Malnutrition: Severe Is there a minimum of two crit: Yes CC Plasma Assessment Blood Product Administration S: [id number] Date of Service: Apr 03, 2025 Billing Provider: DIANA GARCIA MD Common Visit Codes: [id number] CARE 30-74 MIN SKY DASH RESIDENT Apr 03, 2025 16:18
--- NOTE | 2025-04-03 16:51 | DVHPN2 ---
Progress Note - Dictate Date Seen: Apr 03, 2025 Has the PT tested + for MRSA If YES, has PT been informed?: No Medical Necessity Reason Pt with a Central, PICC or Fol: Yes The following are medically ne: Barrios Catheter Subjective Mr. Perez is a 49 years old right-handed gentleman with a history of hypertension, dyslipidemia, multiple strokes, DVT, he was brought to the [facility] [place] on 03/11/2025 with a chief complaint of diarrhea, history is obtained from his , the chart review I saw him on 08/23/2023 for TIA, 10/27/2024 for encephalopathy I have seen and examined the patient, I have talked to his nurse, he went through open cholecystectomy on 04/03/2025, he is awake, oriented to person, place, he knows year and month, his speech is still weak, he follows verbal commands, he can move bilateral arms and legs He is to have PICC line for TPN Stool occult blood, 03/13/2025, 03/29/2025: Positive UDS, 03/12/2025: Negative Plasma alcohol, 03/12/2025: <3 Urinalysis, 03/12/2025: WBC: One, urine leukocyte esterase: Negative ABG, 03/16/25: Hypoxia, respiratory acidosis WBC/Hb/PLT'/MCV, 03/16/25: 10.l 6/7.9/339/82.4 Na, 03/11/2025: 129, 03/12/2025: 130, 129, 03/15/25: 145, 03/16/25: 142 BUNs/CR, 08/22/2023: 15/1.45, 03/11/2025: 55/1.77, 03/13/2025: 43/1.58, 02/2725: 65/2.56 GFR, 08/22/2023: 59 TBI/AST/ALT/AP,: 0.8/269/450/398 TG/CHO L/LDL/HDL, 08/2023: 136/166/111/39 Vitamin B12, 03/12/25: 852 Folic acid, 03/12/2025: 12.28 TSH, 08/23/2023: 4.25 Ultrasound, 03/24/2025: Gallbladder entirely distended with sludge with gallbladder wall thickening and pericholecystic edema, concerning for cholecystitis. Recommend surgical consultation HIDA scan. Dilated common bile duct measuring 16 mm which can be further evaluated with MRCP. Echogenic liver which can be seen with hepatic steatosis, cirrhosis. Right pleural effusion Extremity venous study, right arm, 11/09/2024: Thrombus is seen in the cephalic vein in the forearm. DONAL, 08/23/2023: 1. No evidence of intracardiac source of embolus in the study conducted today. 2. Normal valves without significant masses or change vegetations were discernible. 3. No evidence of intra-atrial shunting by bubble study and color Doppler. 4. Mild atherosclerotic plaquing was visualized in the arch of the aorta without evidence of dissection in the visualized part EGD, 03/13/2025: 1. 1-2 cm sliding-type hiatal hernia with severe grade C linear erosive esophagitis with esophageal ulcers extending into the distal 15 cm of the esophagus 2. Patient had a persistent duodenal bulb ulcer seen just inside the pyloric opening which was large coalescing with a visible sutures; there was no active bleeding or visible vessel but there was acute on chronic inflammation 3. Patient had deformity of the postbulbar duodenal area and I was able to see the 2nd part of the duodenum but there was area of debris and ongoing chronic ulceration inflammation and the endoscope was not advanced beyond this area 3. Patient had mild gastritis and some old coffee-ground within the stomach Chest x-ray, 03/12/2025: Mild chronic appearing left basilar pulmonary airspace disease and possible small pleural effusion Chest x-ray, 03/13/2025: 1. Enteric tube terminates in the stomach. 2. Worsening bilateral interstitial and alveolar opacities. Chest x-ray, : Endotracheal tube and right IJ approach central venous catheters are in satisfactory position. Trace [id number]-right pleural effusions with right retro lower lung zone linear atelectasis/ fluid within the fissure. CT head, 10/24/2024: 1. No intracranial hemorrhage or mass effect. 2. [id number]-[id number] chronic microvascular ischemic changes. 3. Old bilateral basal ganglia lacunar infarcts. 4. Small bilateral mastoid effusions. CT head, 03/17/2025: 1. New medial right parieto-occipital focal region of diminished parenchymal attenuation within the medial right parietal occipital lobes. This is concerning for an acute to subacute infarct. Recommend further evaluation with MRI. 2. No evidence of acute intracranial hemorrhage, mass effect or hydrocephalus. 3. Chronic sequelae of microangiopathy and atrophic cortical volume loss.4. Multifocal chronic lacunar infarcts as outlined above. CT abdomen/pelvis, 10/04/2024: 1. Extensive intra-abdominal free air concerning for perforated viscus. Surgical consultation is recommended. 2. Enteritis is seen in multiple loops of small bowel in the left hemiabdomen. 3. Moderate abdominopelvic ascites. 4. Small right pleural effusion. CTA neck, head, 08/22/2023:1. CTA head demonstrates no evidence of large vessel occlusion, aneurysm, or significant stenosis. 2. CTA neck demonstrates no evidence of carotid or vertebral dissection or significant stenosis. 3. No noncontrast CT head was performed. 4. Additional findings as detailed above MRI head, 08/23/2023: No acute infarct, intracranial hemorrhage, mass effect, or hydrocephalus. Moderate periventricular and deep subcortical white matter T2 hyperintensities which are nonspecific, but most likely related to sequela of chronic microvascular ischemic changes (I have reviewed the MRI films with our in-house radiologist, Dr. Black, the patient had bilateral multiple subacute/chronic infarcts) MRI head, 11/01/2024: No acute cerebrovascular ischemia. [id number]-fe-[id number] chronic microvascular ischemic changes. Bilateral mastoid effusions. Old bilateral basal ganglia / lopes radiata infarcts. MR head, 03/16/2025: Infarcts involving multiple vascular territories as described. vital signs Vital Sign Date Time Temp Pulse Resp B/P (MAP) Pulse Ox O2 Delivery O2 Flow Rate FiO2 04/03/25 16:45 111 22 103/74 (84) 93 04/03/25 16:00 Room Air* 0 21 04/03/25 12:15 97.6 97.6 Total Intake and Output 04/02/25 04/02/25 04/03/25 15:00 23:00 07:00 Intake Total 200.8 ml 725 ml 352 ml Output Total 950 ml 900 ml Balance 200.8 ml -225 ml -548 ml medications Current Medications Medications Dose Ordered Sig/Wally Route Start Time Stop Time Status Last Admin Dose Admin Midazolam HCl 100 ml @ 1 mls/hr Q24H IV 03/16/25 16:30 03/23/25 14:52 2 MLS/HR Diagnostic Test (Pha) 1 strip Q6HR 03/16/25 18:00 04/03/25 12:14 1 STRIP Insulin Human Regular FOLLOW SLIDING SCALE Q6HR SC 03/16/25 18:00 03/31/25 12:03 2 UNITS Dextrose 50 ml UD IV 03/16/25 17:15 Folic Acid 1 mg/ Dextrose 50.2 ml @ 200.8 mls/ hr DAILY INJ 03/17/25 10:00 04/03/25 12:10 200.8 MLS/HR Thiamine HCl 100 mg DAILY IV 03/18/25 10:00 04/03/25 12:12 100 MG Atorvastatin Calcium 40 mg HS PO 03/17/25 22:00 Hold Sucralfate 1 gm QID@0600,1130,1700,2200 GT 03/23/25 17:00 04/02/25 22:52 1 GM Pantoprazole Sodium 40 mg BID IV 03/26/25 22:00 04/03/25 12:12 40 MG Ipratropium [place] 0.5 mg Q6HR NEB 03/28/25 12:00 04/03/25 12:27 0.5 MG Levalbuterol HCl 0.625 mg Q6HR NEB 03/28/25 12:00 04/03/25 12:27 0.625 MG Nicotine 1 patch DAILY TD 03/29/25 10:00 04/03/25 12:14 1 PATCH Lorazepam 0.5 mg [id number] PRN IV 03/28/25 19:30 04/02/25 19:53 0.5 MG Clonidine HCl 0.2 mg TID PO 03/29/25 14:00 Hold 04/02/25 14:57 0.2 MG Furosemide 20 mg BIDD IV 03/29/25 18:00 04/03/25 05:36 20 MG Losartan Potassium 100 mg DAILY PO 03/30/25 10:00 04/02/25 10:57 100 MG Enteral Nutritional Formula 1,000 ml 40ML/HR GT 03/30/25 10:00 04/02/25 14:59 1,000 ML Glycopyrrolate 0.2 mg TID IV 03/30/25 22:00 04/03/25 14:59 0.2 MG Potassium Chloride/Dextrose/ Sod Cl 1,000 ml @ 120 mls/hr Q8H20M IV 04/03/25 10:00 04/03/25 12:24 120 MLS/HR Ceftriaxone Sodium 50 ml @ 100 mls/hr DAILY@09 IV 04/04/25 09:00 Metronidazole 100 ml @ 100 mls/hr Q8HR IV 04/03/25 14:00 04/03/25 14:58 100 MLS/HR Ondansetron HCl 4 mg Q4HPRN PRN IV 04/03/25 10:00 Amino Acids 0 ml @ 0 mls/hr PER PHARMACY IV 04/03/25 10:00 Fat Emulsion Intravenous 50 ml/ Sodium Chloride 10 meq/Potassium Chloride 20 meq/ Calcium Gluconate 2.32 meq/ Magnesium Sulfate 4 meq/ Multivitamins 10 ml/Chromium/ Copper/Manganese/ Zinc 1 ml/Amino Acids/Dextrose/ Purified Water 879.4892 ml @ 37 mls/hr [id number] IV 04/03/25 22:00 04/04/25 21:59 Labetalol HCl 5 mg Q4HP PRN IV 04/03/25 11:30 Hydromorphone HCl 0.5 mg Q4HPRN PRN IV 04/03/25 11:30 Lidocaine HCl 0.5 ml ONCE PRN ID 04/03/25 16:45 Sodium Chloride 10 ml QSHIFT@10,22 IV 04/03/25 22:00 objective The patient is well-nourished and well-developed with no distress. MENTAL STATUS: Subjective CRANIAL NERVES: Pupils are equal, round and reactive. EOMs full and conjugate. Facial sensation intact in all three divisions bilaterally. Mandibular strength intact. Facial muscles symmetrical and strength intact. SENSATION: Okay to touch MOTOR: Normal tone in the upper and lower extremity. Normal muscle bulk. No fasciculations. Muscle power: Right arm: 2/5, right le/5, left arm: 4/5, left le/5 REFLEXES: Deep tendon reflexes are symmetrical, 3-4/4 in the knees and 4/4 in the ankles. No pathological reflexes. CEREBELLAR/COORDINATION: Deferred GAIT/STATION: deferred. laboratory and microbiology Laboratory Tests 04/03/25 03:12 Test 04/03/25 03:12 Range/Units Serum Glucose 88 74-106 mg/dL Problem List Altered mental status Metabolic encephalopathy secondary to sepsis, septic shock, hypernatremia Hypoxic encephalopathy Peptic ulcer, GI bleeding, anemia Respiratory failure Right hemiparesis Acute multiple strokes in different arterial territories (MRI 03/18/25) Multiple chronic strokes Maybe secondary to history methamphetamine, cocaine, alcohol use History of alcohol abuse History of cocaine, methamphetamine abuse Assessment/Plan Monitoring Supportive treatment IIV antibiotics Aspirin 81 mg daily later Lipitor later TPN Thiamine supplementation Folic acid supplementation GI service on case Nephrology service on case More recommended per clinical course This medical document was created using an electronic medical record system with Onit dictation system. Although this document has been carefully reviewed, there may still be some phonetic and typographical errors. These areas are purely typographical due to imperfect Prognosis poor Dietary Evaluation Review Recommendations by RD: Increase Calorie Intake, PPN/TPN Comments: Pt meets criteria 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 based on severe wt loss 35lb/24% in 5 month, intake <50% estimated requirement x 5 days, severe muscle wasting and fat depletion Nutrition Recommendation: 1) PPN/TPN if NPO continues 2) Advance to soft diet as medically feasible 3) Ensure Enlive 240ml TID if pt resumes PO diet 4) Monitor NPO status, lab values, weight trend, and I/O Expected Outcomes/Goals: Intake to meet >75% estimated needs GI symptoms to improve Fu 2-3 days Food and Nutrition Intake (Sev: <50% est energy req 5days Interpretation of weight loss: >10% in 6 months Body Fat Depletion (Severe): Mod to Severe Depletion Muscle Mass (Severe): Mod to Severe Depletion Protein Calorie Malnutrition: Severe Is there a minimum of two crit: Yes Plan discussed with: Other CC Plasma Assessment Blood Product Administration S: [id number] LEANDRO BLACK MD Apr 03, 2025 16:51
[2025-04-03] MEDS: HYDROmorphone HCL 2 MG/ML VL/or syr IV PRN (17:05)
[2025-04-03] MEDS: LIDOCAINE 1% (LOCAL ANESTH.) PF 5ml SDV ID PRN (17:30)
[2025-04-03] MEDS: SODIUM CHLOR 0.9% PF (SALINE LOCK) 10ML VIAL/SYR IV SCH (21:59)
[2025-04-03] MEDS ORDERED: PPN PER PHARMACY IV NR (22:00)
[2025-04-04] VITALS (91 sets, daily range): BP systolic 102–153; BP diastolic 66–100; PULSE 79–119; RESP 10–28; TEMP 97.5–98.2; O2SAT 97–100
[2025-04-04 04:44] LABS: Hematocrit 24.9 % (41.0-53.0); Hemoglobin 8.4 g/dL (13.5-17.5); Mean Corpuscular Hemoglobin 27.9 pg (28.0-32.0); Mean Corpuscular Volume 82.9 fL (80.0-100.0); Nucleated Red Blood Cells % 0.0 %
[2025-04-04 05:06] LABS: Alanine Aminotransferase 38 U/L (7-40); Anion Gap 9 (5-15); BUN/Creatinine Ratio 28.9 (10.0-20.0); Magnesium 1.8 mg/dL (1.6-2.6); Potassium 4.5 mmol/L (3.5-5.1); Sodium 138 mmol/L (136-145); Total Protein 5.8 g/dL (5.7-8.2); Triglycerides 98 mg/dL (< 150)
[2025-04-04 05:09] LABS: Albumin 2.7 g/dL (3.2-4.8); Alkaline Phosphatase 217 U/L (46-116); Bilirubin, Total 0.3 mg/dL (0.2-1.0); Blood Urea Nitrogen 37 mg/dL (9-23); Calcium 8.3 mg/dL (8.7-10.4); Carbon Dioxide 32 mmol/L (20-31); Chloride 97 mmol/L (98-107); Glucose 146 mg/dL (74-106)
[2025-04-04] MEDS: MAGNESIUM SULFATE 1GM/100ML 100 ML IV ONE (10:03)
--- NOTE | 2025-04-04 11:23 | DVHPN2 ---
Progress Note Date Seen: Apr 04, 2025 Has the PT tested + for MRSA If YES, has PT been informed?: No Medical Necessity Reason Pt with a Central, PICC or Fol: Yes The following are medically ne: Barrios Catheter Objective vital signs Vital Sign Date Time Temp Pulse Resp B/P (MAP) Pulse Ox O2 Delivery O2 Flow Rate FiO2 04/04/25 10:15 93 19 121/74 (90) 100 04/04/25 08:00 Nasal Cannula* 2 28 04/04/25 08:00 97.5 97.5 Total Intake and Output 04/03/25 04/03/25 04/04/25 15:00 23:00 07:00 Intake Total 710.8 ml 637 ml 1259 ml Output Total 0 ml 650 ml 465 ml Balance 710.8 ml -13 ml 794 ml medications Current Medications Medications Dose Ordered Sig/Wally Route Start Time Stop Time Status Last Admin Dose Admin Midazolam HCl 100 ml @ 1 mls/hr Q24H IV 03/16/25 16:30 03/23/25 14:52 2 MLS/HR Diagnostic Test (Pha) 1 strip Q6HR 03/16/25 18:00 04/04/25 05:51 1 STRIP Insulin Human Regular FOLLOW SLIDING SCALE Q6HR SC 03/16/25 18:00 03/31/25 12:03 2 UNITS Dextrose 50 ml UD IV 03/16/25 17:15 Folic Acid 1 mg/ Dextrose 50.2 ml @ 200.8 mls/ hr DAILY INJ 03/17/25 10:00 04/04/25 10:04 200.8 MLS/HR Thiamine HCl 100 mg DAILY IV 03/18/25 10:00 04/04/25 09:59 100 MG Atorvastatin Calcium 40 mg HS PO 03/17/25 22:00 Hold Sucralfate 1 gm QID@0600,1130,1700,2200 GT 03/23/25 17:00 04/04/25 05:50 1 GM Pantoprazole Sodium 40 mg BID IV 03/26/25 22:00 04/04/25 09:59 40 MG Ipratropium [place] 0.5 mg Q6HR NEB 03/28/25 12:00 04/04/25 05:43 0.5 MG Levalbuterol HCl 0.625 mg Q6HR NEB 03/28/25 12:00 04/04/25 05:43 0.625 MG Nicotine 1 patch DAILY TD 03/29/25 10:00 04/04/25 10:00 1 PATCH Lorazepam 0.5 mg [id number] PRN IV 03/28/25 19:30 04/02/25 19:53 0.5 MG Clonidine HCl 0.2 mg TID PO 03/29/25 14:00 Hold 04/02/25 14:57 0.2 MG Furosemide 20 mg BIDD IV 03/29/25 18:00 04/04/25 05:51 20 MG Losartan Potassium 100 mg DAILY PO 03/30/25 10:00 04/02/25 10:57 100 MG Enteral Nutritional Formula 1,000 ml 40ML/HR GT 03/30/25 10:00 04/02/25 14:59 1,000 ML Glycopyrrolate 0.2 mg TID IV 03/30/25 22:00 04/03/25 14:59 0.2 MG Potassium Chloride/Dextrose/ Sod Cl 1,000 ml @ 120 mls/hr Q8H20M IV 04/03/25 10:00 04/04/25 05:52 120 MLS/HR Ceftriaxone Sodium 50 ml @ 100 mls/hr DAILY@09 IV 04/04/25 09:00 04/04/25 08:41 100 MLS/HR Metronidazole 100 ml @ 100 mls/hr Q8HR IV 04/03/25 14:00 04/04/25 05:50 100 MLS/HR Ondansetron HCl 4 mg Q4HPRN PRN IV 04/03/25 10:00 Amino Acids 0 ml @ 0 mls/hr PER PHARMACY IV 04/03/25 10:00 Fat Emulsion Intravenous 50 ml/ Sodium Chloride 10 meq/Potassium Chloride 20 meq/ Calcium Gluconate 2.32 meq/ Magnesium Sulfate 4 meq/ Multivitamins 10 ml/Chromium/ Copper/Manganese/ Zinc 1 ml/Amino Acids/Dextrose/ Purified Water 879.4892 ml @ 37 mls/hr [id number] IV 04/03/25 22:00 04/04/25 21:59 04/03/25 21:58 37 MLS/HR Labetalol HCl 5 mg Q4HP PRN IV 04/03/25 11:30 Hydromorphone HCl 0.5 mg Q4HPRN PRN IV 04/03/25 11:30 04/04/25 10:15 0.5 MG Lidocaine HCl 0.5 ml ONCE PRN ID 04/03/25 16:45 04/03/25 17:30 0.5 ML Sodium Chloride 10 ml QSHIFT@10,22 IV 04/03/25 22:00 04/04/25 10:01 10 ML Fat Emulsion Intravenous 100 ml/Sodium Chloride 30 meq/ Calcium Gluconate 2.3 meq/Magnesium Sulfate 8 meq/ Multivitamins 10 ml/Chromium/ Copper/Manganese/ Zinc 1 ml/Amino Acids/Dextrose/ Purified Water 1,525.4462 ml @ 64 mls/hr [id number] IV 04/04/25 22:00 04/05/25 21:59 laboratory and microbiology Laboratory Tests 04/04/25 03:50 Test 04/04/25 03:50 Range/Units Serum Glucose 146 H 74-106 mg/dL Problem List/Assessment/Plan Problem List/Assessment/Plan 04/04/25 doing well, wound clean and well approximated, dran with sero sanguineous drainage, t tube draining clear bile, he is feeling "much better" and is hungry. labs reviewed. will dc ngt and start po intake Plan discussed with: Patient Dietary Evaluation Review Recommendations by RD: Increase Calorie Intake, PPN/TPN Comments: Pt meets criteria 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 based on severe wt loss 35lb/24% in 5 month, intake <50% estimated requirement x 5 days, severe muscle wasting and fat depletion Nutrition Recommendation: 1) PPN/TPN if NPO continues 2) Advance to soft diet as medically feasible 3) Ensure Enlive 240ml TID if pt resumes PO diet 4) Monitor NPO status, lab values, weight trend, and I/O Expected Outcomes/Goals: Intake to meet >75% estimated needs GI symptoms to improve Fu 2-3 days Food and Nutrition Intake (Sev: <50% est energy req 5days Interpretation of weight loss: >10% in 6 months Body Fat Depletion (Severe): Mod to Severe Depletion Muscle Mass (Severe): Mod to Severe Depletion Protein Calorie Malnutrition: Severe Is there a minimum of two crit: Yes LOBO BOSWELL MD Apr 04, 2025 11:23
--- NOTE | 2025-04-04 12:27 | DVHPN2 ---
Progress Note - Dictate Date Seen: Apr 04, 2025 Medical Necessity Reason Pt with a Central, PICC or Fol: Yes The following are medically ne: Barrios Catheter vital signs Vital Sign Date Time Temp Pulse Resp B/P (MAP) Pulse Ox O2 Delivery O2 Flow Rate FiO2 04/04/25 11:49 98 16 100 04/04/25 11:30 125/81 (96) 04/04/25 10:00 Nasal Cannula* 2 28 04/04/25 08:00 97.5 97.5 Total Intake and Output 04/03/25 04/03/25 04/04/25 15:00 23:00 07:00 Intake Total 710.8 ml 637 ml 1259 ml Output Total 0 ml 650 ml 465 ml Balance 710.8 ml -13 ml 794 ml medications Current Medications Medications Dose Ordered Sig/Wally Route Start Time Stop Time Status Last Admin Dose Admin Midazolam HCl 100 ml @ 1 mls/hr Q24H IV 03/16/25 16:30 03/23/25 14:52 2 MLS/HR Diagnostic Test (Pha) 1 strip Q6HR 03/16/25 18:00 04/04/25 11:45 1 STRIP Insulin Human Regular FOLLOW SLIDING SCALE Q6HR SC 03/16/25 18:00 04/04/25 11:49 2 UNITS Dextrose 50 ml UD IV 03/16/25 17:15 Folic Acid 1 mg/ Dextrose 50.2 ml @ 200.8 mls/ hr DAILY INJ 03/17/25 10:00 04/04/25 10:04 200.8 MLS/HR Thiamine HCl 100 mg DAILY IV 03/18/25 10:00 04/04/25 09:59 100 MG Atorvastatin Calcium 40 mg HS PO 03/17/25 22:00 Hold Sucralfate 1 gm QID@0600,1130,1700,2200 GT 03/23/25 17:00 04/04/25 11:54 1 GM Pantoprazole Sodium 40 mg BID IV 03/26/25 22:00 04/04/25 09:59 40 MG Ipratropium [place] 0.5 mg Q6HR NEB 03/28/25 12:00 04/04/25 11:38 0.5 MG Levalbuterol HCl 0.625 mg Q6HR NEB 03/28/25 12:00 04/04/25 11:39 0.625 MG Nicotine 1 patch DAILY TD 03/29/25 10:00 04/04/25 10:00 1 PATCH Lorazepam 0.5 mg [id number] PRN IV 03/28/25 19:30 04/02/25 19:53 0.5 MG Clonidine HCl 0.2 mg TID PO 03/29/25 14:00 Hold 04/02/25 14:57 0.2 MG Furosemide 20 mg BIDD IV 03/29/25 18:00 04/04/25 05:51 20 MG Losartan Potassium 100 mg DAILY PO 03/30/25 10:00 04/02/25 10:57 100 MG Enteral Nutritional Formula 1,000 ml 40ML/HR GT 03/30/25 10:00 04/02/25 14:59 1,000 ML Glycopyrrolate 0.2 mg TID IV 03/30/25 22:00 04/03/25 14:59 0.2 MG Potassium Chloride/Dextrose/ Sod Cl 1,000 ml @ 120 mls/hr Q8H20M IV 04/03/25 10:00 04/04/25 05:52 120 MLS/HR Ceftriaxone Sodium 50 ml @ 100 mls/hr DAILY@09 IV 04/04/25 09:00 04/04/25 08:41 100 MLS/HR Metronidazole 100 ml @ 100 mls/hr Q8HR IV 04/03/25 14:00 04/04/25 05:50 100 MLS/HR Ondansetron HCl 4 mg Q4HPRN PRN IV 04/03/25 10:00 Amino Acids 0 ml @ 0 mls/hr PER PHARMACY IV 04/03/25 10:00 Fat Emulsion Intravenous 50 ml/ Sodium Chloride 10 meq/Potassium Chloride 20 meq/ Calcium Gluconate 2.32 meq/ Magnesium Sulfate 4 meq/ Multivitamins 10 ml/Chromium/ Copper/Manganese/ Zinc 1 ml/Amino Acids/Dextrose/ Purified Water 879.4892 ml @ 37 mls/hr [id number] IV 04/03/25 22:00 04/04/25 21:59 04/03/25 21:58 37 MLS/HR Labetalol HCl 5 mg Q4HP PRN IV 04/03/25 11:30 Hydromorphone HCl 0.5 mg Q4HPRN PRN IV 04/03/25 11:30 04/04/25 10:15 0.5 MG Lidocaine HCl 0.5 ml ONCE PRN ID 04/03/25 16:45 04/03/25 17:30 0.5 ML Sodium Chloride 10 ml QSHIFT@10,22 IV 04/03/25 22:00 04/04/25 10:01 10 ML Fat Emulsion Intravenous 100 ml/Sodium Chloride 30 meq/ Calcium Gluconate 2.3 meq/Magnesium Sulfate 8 meq/ Multivitamins 10 ml/Chromium/ Copper/Manganese/ Zinc 1 ml/Amino Acids/Dextrose/ Purified Water 1,525.4462 ml @ 64 mls/hr [id number] IV 04/04/25 22:00 04/05/25 21:59 laboratory and microbiology Laboratory Tests 04/04/25 03:50 Test 04/04/25 03:50 Range/Units Serum Glucose 146 H 74-106 mg/dL Assessment/Plan Impression Acute hypoxemic respiratory failure Multiple strokes GI bleed Anemia GIOVANI Patient seen and examined in ICU Events S/p extubation Low oxygen requirements On 2 liters nasal cannula No acute events Labs and imaging reviewed Management Supplemental oxygen Titrate to maintain sats 90% or above Incentive spirometry Aspiration precautions Advance diet as tolerated Continue antibiotics F/u cultures Bronchodilators Monitor renal function Monitor electrolytes Supplement as needed Monitor hemoglobin F/u GI DVT prophylaxis Critical care time 35 minutes Dietary Evaluation Review Recommendations by RD: Increase Calorie Intake, PPN/TPN Comments: Pt meets criteria 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 based on severe wt loss 35lb/24% in 5 month, intake <50% estimated requirement x 5 days, severe muscle wasting and fat depletion Nutrition Recommendation: 1) PPN/TPN if NPO continues 2) Advance to soft diet as medically feasible 3) Ensure Enlive 240ml TID if pt resumes PO diet 4) Monitor NPO status, lab values, weight trend, and I/O Expected Outcomes/Goals: Intake to meet >75% estimated needs GI symptoms to improve Fu 2-3 days Food and Nutrition Intake (Sev: <50% est energy req 5days Interpretation of weight loss: >10% in 6 months Body Fat Depletion (Severe): Mod to Severe Depletion Muscle Mass (Severe): Mod to Severe Depletion Protein Calorie Malnutrition: Severe Is there a minimum of two crit: Yes Plan discussed with: Patient CC Plasma Assessment Blood Product Administration S: [id number] VALENTE DEE MD Apr 04, 2025 12:26
--- NOTE | 2025-04-04 15:39 | DVHPNRES ---
Progress Note Date Seen: Apr 04, 2025 Resident Creating Document: SKY DASH RESIDENT Medical Necessity Reason Pt with a Central, PICC or Fol: Yes The following are medically ne: PICC Line, Barrios Catheter Subjective Review of Systems Jossue Perez is a 49-year-old male past medical history of hypertension, hyperlipidemia, DVT, 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 The patient mentions he had passage of stool 7 times yesterday which was tarry black in color. Patient mentions he also had abdominal pain, nausea and a few episodes of vomiting for the last 2 days. He denies any fever,weakness or weight loss. He reports history of perforated duodenal ulcer s/p exp lap with prolonged ICU stay complicated with sepsis from cholecystitis s/p tracheostomy and removal. On arrival to the hospital, his hemoglobin was 4.2 and he had to be transfused with 2 units of PRBCs. He was kept NPO and NG tube placed. GI was consulted and they recommended continuing with IV Protonix drip scheduled patient for EGD on 03/13/2025. Patient was seen and examined on the bedside. Day 1 s/p open cholecystectomy, common bile duct exploration and intraoperative cholangiogram . Patient is alert oriented x3 and on nasal cannula 2 L/min. Serosanguineous 25 mL KWAN drain and clear bile drainage on T- drain about 180 mL. Surgery evaluated the patient today and recommended clear liquid diet, discontinue NG tube, continue TPN. The patient is doing well and mentioned mild abdominal pain in the right upper quadrant at the surgical site Objective vital signs Vital Sign Date Time Temp Pulse Resp B/P (MAP) Pulse Ox O2 Delivery O2 Flow Rate FiO2 04/04/25 14:15 109 22 139/84 (102) 100 04/04/25 14:00 Nasal Cannula* 2 28 04/04/25 12:00 97.8 97.8 Total Intake and Output 04/03/25 04/03/25 04/04/25 15:00 23:00 07:00 Intake Total 710.8 ml 637 ml 1416 ml Output Total 0 ml 650 ml 465 ml Balance 710.8 ml -13 ml 951 ml medications Current Medications Medications Dose Ordered Sig/Wally Route Start Time Stop Time Status Last Admin Dose Admin Midazolam HCl 100 ml @ 1 mls/hr Q24H IV 03/16/25 16:30 03/23/25 14:52 2 MLS/HR Diagnostic Test (Pha) 1 strip Q6HR 03/16/25 18:00 04/04/25 11:45 1 STRIP Insulin Human Regular FOLLOW SLIDING SCALE Q6HR SC 03/16/25 18:00 04/04/25 11:49 2 UNITS Dextrose 50 ml UD IV 03/16/25 17:15 Folic Acid 1 mg/ Dextrose 50.2 ml @ 200.8 mls/ hr DAILY INJ 03/17/25 10:00 04/04/25 10:04 200.8 MLS/HR Thiamine HCl 100 mg DAILY IV 03/18/25 10:00 04/04/25 09:59 100 MG Atorvastatin Calcium 40 mg HS PO 03/17/25 22:00 Hold Sucralfate 1 gm QID@0600,1130,1700,2200 GT 03/23/25 17:00 04/04/25 11:54 1 GM Pantoprazole Sodium 40 mg BID IV 03/26/25 22:00 04/04/25 09:59 40 MG Ipratropium [place] 0.5 mg Q6HR NEB 03/28/25 12:00 04/04/25 11:38 0.5 MG Levalbuterol HCl 0.625 mg Q6HR NEB 03/28/25 12:00 04/04/25 11:39 0.625 MG Nicotine 1 patch DAILY TD 03/29/25 10:00 04/04/25 10:00 1 PATCH Lorazepam 0.5 mg [id number] PRN IV 03/28/25 19:30 04/02/25 19:53 0.5 MG Clonidine HCl 0.2 mg TID PO 03/29/25 14:00 Hold 04/02/25 14:57 0.2 MG Furosemide 20 mg BIDD IV 03/29/25 18:00 04/04/25 05:51 20 MG Losartan Potassium 100 mg DAILY PO 03/30/25 10:00 04/02/25 10:57 100 MG Enteral Nutritional Formula 1,000 ml 40ML/HR GT 03/30/25 10:00 04/02/25 14:59 1,000 ML Glycopyrrolate 0.2 mg TID IV 03/30/25 22:00 04/04/25 14:15 0.2 MG Ceftriaxone Sodium 50 ml @ 100 mls/hr DAILY@09 IV 04/04/25 09:00 04/04/25 08:41 100 MLS/HR Metronidazole 100 ml @ 100 mls/hr Q8HR IV 04/03/25 14:00 04/04/25 14:14 100 MLS/HR Ondansetron HCl 4 mg Q4HPRN PRN IV 04/03/25 10:00 Amino Acids 0 ml @ 0 mls/hr PER PHARMACY IV 04/03/25 10:00 Fat Emulsion Intravenous 50 ml/ Sodium Chloride 10 meq/Potassium Chloride 20 meq/ Calcium Gluconate 2.32 meq/ Magnesium Sulfate 4 meq/ Multivitamins 10 ml/Chromium/ Copper/Manganese/ Zinc 1 ml/Amino Acids/Dextrose/ Purified Water 879.4892 ml @ 37 mls/hr [id number] IV 04/03/25 22:00 04/04/25 21:59 04/03/25 21:58 37 MLS/HR Labetalol HCl 5 mg Q4HP PRN IV 04/03/25 11:30 Hydromorphone HCl 0.5 mg Q4HPRN PRN IV 04/03/25 11:30 04/04/25 10:15 0.5 MG Lidocaine HCl 0.5 ml ONCE PRN ID 04/03/25 16:45 04/03/25 17:30 0.5 ML Sodium Chloride 10 ml QSHIFT@10,22 IV 04/03/25 22:00 04/04/25 10:01 10 ML Fat Emulsion Intravenous 100 ml/Sodium Chloride 30 meq/ Calcium Gluconate 2.3 meq/Magnesium Sulfate 8 meq/ Multivitamins 10 ml/Chromium/ Copper/Manganese/ Zinc 1 ml/Amino Acids/Dextrose/ Purified Water 1,525.4462 ml @ 64 mls/hr [id number] IV 04/04/25 22:00 04/05/25 21:59 Examination Physical examination: General Appearance: Alert, Oriented X3, on nasal canula 2L/min HEENT: Atraumatic, PERRLA, EOMI, Mucous membrane moist/pink Respiratory: Bilateral crackles. Cardiovascular: Regular rate, Normal S1, Normal S2, No murmurs, no chest wall tenderness Abdominal: Surgical wound with dressing on the right upper quadrant with 2 KWAN drain, mildly tender, No hepatosplenomegaly, No masses, decreased bowel sounds Extremities: PICC line on the rt upper arm, No clubbing, No cyanosis, No edema, Normal pulses, No tenderness/swelling Skin: No rashes, No breakdown, No significant lesion Neuro: Normal speech, right-sided weakness, Strength at 5/5 X2 ext, Normal tone, Sensation intact, grossly intact cranial nerves Psych/Mental Status: could not be assessed laboratory and microbiology Laboratory Tests 04/04/25 03:50 Test 04/04/25 03:50 Range/Units Serum Glucose 146 H 74-106 mg/dL Microbiology Date/Time Source Procedure Growth Status 04/03/25 10:17 Gallbladder Gram Stain Pending Resulted 04/03/25 10:17 Gallbladder Anaerobic Culture Pending Resulted 04/03/25 10:17 Gallbladder Aerobic Culture - Preliminary Resulted 03/16/25 16:06 Sputum Gram Stain - Final Complete 03/16/25 16:06 Respiratory Culture - Final Stenotrophomonas maltophilia Escherichia coli Presumptive Milady albicans Complete 03/13/25 11:53 Stool Stool Culture - Final Complete 03/13/25 11:53 Stool Shiga Toxin I & II - Final Complete 03/12/25 11:55 Urine - Barrios [place] Urine Culture - Final Complete 03/11/25 15:36 Blood Blood Culture - Final NO GROWTH AFTER 5 DAYS OF INCUBATION. Complete Labs and/or images reviewed: Labs reviewed by me, Image(s) reviewed by me Problem List/Assessment/Plan Problem List/Assessment/Plan Assessment and plan : NEURO: Acute metabolic encephalopathy secondary to acute ischemic stroke; resolved; able to make decisions; alert and oriented X3 Acute or subacute ischemic stroke Hypertensive emergency Acute anxiety - CT head without contrast demonstrated new medial right parieto-occipital focal region of diminished parenchymal attenuation within the medial right parietal occipital lobes. This is concerning for an acute to subacute infarct with chronic multifocal lacunar infarct - MRI showed Infarcts involving multiple vascular territories involved medial right occipital lobe, posterior left occipital lobe, and left lopes radiata white matter tracts. Few additional tiny foci of diffusion restriction at the anterior right parietal cortex. - Neurology on board - hold aspirin and Plavix for now because of GI bleeding - atorvastatin 40 mg p.o. daily - Clonidine 0.2 mg p.o.tid, losartan 100 mg daily and IV labetalol 5 mg q.2h PRN SBP>150 - IV Ativan 0.5 mg q.12 PRN CARDIOVASCULAR: Chronic diastolic heart failure with preserved ejection fraction - Echo on 11/12 demonstrated EF 65%, MILD LVH AND MILD LV DIASTOLIC DYSFUNCTION - elevated BNP - CXR showed Bilateral interstitial opacities, small left basilar consolidation and pleural effusion - IV Lasix 20 mg b.i.d. PULMONARY: Acute hypoxic respiratory failure; to continue oxygen therapy as indicated; currently on 2 L/min via nasal cannula S/P extubation GASTROINTESTINAL: Acute GI bleed upper vs lower Partial small Intestinal obstruction likely secondary to fecal impaction. Cholelithiasis C diff positive Elevated alkaline phosphatase -CT abdomen/pelvis showed low-grade distal partial obstruction due to fecal retention. - Gastrografin study showed Contrast is identified within the colon by 3 hours. No evidence of bowel obstruction. -EGD on 03/13/25 showed 1-2 cm sliding-type hiatal hernia with severe grade C linear erosive esophagitis with esophageal ulcers extending into the distal 15 cm of the esophagus persistent duodenal bulb ulcer seen just inside the pyloric opening which was large coalescing with a visible sutures; there was no active bleeding or visible vessel but there was acute on chronic inflammation deformity of the postbulbar duodenal area and but there was area of debris and ongoing chronic ulceration inflammation and the endoscope was not advanced beyond this area mild gastritis and some old coffee-ground within the stomach - GB U/S demonstrated gallbladder wall thickening and pericholecystic edema, concerning for cholecystitis and dilated CBD up to 16 mm. - MRCP scan demonstrated Choledocholithiasis in the mid to distal common bile duct predominantly dependently. - Day 1 S/P open cholecystectomy with common bile duct exploration with intrahepatic cholangiogram . - clear liquid diet - IV D5 with 0.45% normal saline with 40 mEq potassium at 100 mL/hours - IV ceftriaxone 1 g daily and IV metronidazole 500 mg t.i.d. - TPN per pharmacy - IV Protonix 40 mg bid - Carafate suspension 1 g q.i.d. - Zofran 4 mg IV q.4 PRN - Monitor Hand H, transfuse if hemoglobin less than 7 GENITOURINARY: GIOVANI on CKD likely hemodynamically mediated/VMN resolved - Monitor BMP METABOLIC: Hypernatremia Hypokalemia Hypophosphatemia - monitor BMP and replace/correct electrolytes as indicated HEME: Severe microcytic hypochromic anemia due to GI bleeding Iron deficiency due to above Bilateral superficial thrombophlebitis - Patient received 4 units of PRBCs - Monitor H&H INFECTIOUS DISEASE: Acute C diff infection - po vancomycin on hold because of upper GI bleeding Nicotine dependence - Nicotine dependence 21 g/24 hours DIET: TPN, NPO DVT prophylax: SCDs due to GI bleed GI prophylaxis: Protonix IV Bowel regimen: Code status: Full code; goals of care rediscussed with the patient and the patient's for 20 minutes; continues to be full code LINES/DRAINS/ACCESS: Extubated on 03/27/25 LINES: Rt PICC line Drips: TPN Barrios catheter DISPOSITION: ICU Patient's status discussed with RN, Critical care time spent: 90 minutes, including patient care, chart review, and updating the family. Excluding any procedures. Case discussed with Dr. Johnson I was physically present for the giles portions of the service provided to patient by THE RESIDENT. I have reviewed the documentation, discussed the case with resident and agree with the resident's documentation except as noted. Also the patient's clinical case was discussed with the patient's nurse. This medical document was created using an electronic medical record system with computerized dictation system. Although this document has been carefully reviewed, there might still be some phonetic and typographical errors. These areas are purely typographical due to imperfections of the software programs, and do not reflect any compromise in the patient's medical care. Late signature. Plan discussed with: Patient, Spouse, Other (RN) My Orders My Orders Orders - SKY DASH RESIDENT Procedure Category Date Status Time * Trolley Worker CONS 04/03/25 Transmitted Consult Nursing Protocol Picc CINTHIA 04/03/25 In Process 16:35 Change Dressing Prn [facility] 04/03/25 In Process 16:35 PICC BD 04/03/25 Transmitted 16:35 Lidocaine 1% (Local PHA 04/03/25 In Process Anesth.) (Xylocaine 16:45 Sodium Chloride Lock PHA 04/03/25 In Process (Saline Lock Ns) 22:00 Do Not Use Picc For CINTHIA 04/03/25 In Process Blood Cult 16:35 May Draw Blood From CINTHIA 04/03/25 In Process Picc 16:35 Ok To Use Picc CINTHIA 04/03/25 In Process 16:35 Change Picc Dressing [facility] 04/03/25 In Process Q7 Days 16:35 * Trolley Worker CONS 04/03/25 Transmitted Consult Dietary Evaluation Review Recommendations by RD: Increase Calorie Intake, PPN/TPN Comments: Pt meets criteria 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 based on severe wt loss 35lb/24% in 5 month, intake <50% estimated requirement x 5 days, severe muscle wasting and fat depletion Nutrition Recommendation: 1) PPN/TPN if NPO continues 2) Advance to soft diet as medically feasible 3) Ensure Enlive 240ml TID if pt resumes PO diet 4) Monitor NPO status, lab values, weight trend, and I/O Expected Outcomes/Goals: Intake to meet >75% estimated needs GI symptoms to improve Fu 2-3 days Food and Nutrition Intake (Sev: <50% est energy req 5days Interpretation of weight loss: >10% in 6 months Body Fat Depletion (Severe): Mod to Severe Depletion Muscle Mass (Severe): Mod to Severe Depletion Protein Calorie Malnutrition: Severe Is there a minimum of two crit: Yes Critical Care Time (mins): 90 CC Plasma Assessment Blood Product Administration S: [id number] Date of Service: Apr 04, 2025 Billing Provider: LAURA JOHNSON MD Common Visit Codes: [id number] CARE 30-74 MIN (90 minutes), [id number] CARE-EACH +30MIN Secondary Visit Codes: [id number] CARE PLAN 30 MINUTES (20 minutes) SKY DASH RESIDENT Apr 04, 2025 15:39 LAURA JOHNSON MD Apr 06, 2025 08:18
[2025-04-04] MEDS: TPN PER PHARMACY IV NR (22:34)
[2025-04-05] VITALS (108 sets, daily range): BP systolic 129–167; BP diastolic 79–109; PULSE 99–136; RESP 16–48; TEMP 97.9–99; O2SAT 94–100
[2025-04-05 04:37] LABS: Hemoglobin 8.1 g/dL (13.5-17.5)
[2025-04-05 04:39] LABS: Hematocrit 24.4 % (41.0-53.0); Mean Corpuscular Hemoglobin 27.7 pg (28.0-32.0); Mean Corpuscular Volume 83.4 fL (80.0-100.0); Nucleated Red Blood Cells % 0.1 %
[2025-04-05 04:54] LABS: Alanine Aminotransferase 27 U/L (7-40); Albumin 2.6 g/dL (3.2-4.8); Alkaline Phosphatase 188 U/L (46-116); Anion Gap 10 (5-15); BUN/Creatinine Ratio 31.8 (10.0-20.0); Blood Urea Nitrogen 35 mg/dL (9-23); Calcium 8.1 mg/dL (8.7-10.4); Carbon Dioxide 31 mmol/L (20-31); Chloride 99 mmol/L (98-107); Glucose 115 mg/dL (74-106); Magnesium 2.0 mg/dL (1.6-2.6); Potassium 3.5 mmol/L (3.5-5.1); Sodium 140 mmol/L (136-145); Total Protein 5.7 g/dL (5.7-8.2)
[2025-04-05 04:56] LABS: Bilirubin, Total 0.2 mg/dL (0.2-1.0)
--- NOTE | 2025-04-05 09:45 | DVHPN2 ---
Progress Note Date Seen: Apr 05, 2025 Medical Necessity Reason Pt with a Central, PICC or Fol: Yes The following are medically ne: Barrios Catheter Objective vital signs Vital Sign Date Time Temp Pulse Resp B/P (MAP) Pulse Ox O2 Delivery O2 Flow Rate FiO2 04/05/25 08:00 22 Nasal Cannula* 2 28 04/05/25 08:00 120 140/87 (104) 97 04/05/25 04:45 98.0 98.0 Total Intake and Output 04/04/25 04/04/25 04/05/25 15:00 23:00 07:00 Intake Total 1256.2 ml 823 ml 912 ml Output Total 670 ml 1755 ml Balance 1256.2 ml 153 ml -843 ml medications Current Medications Medications Dose Ordered Sig/Wally Route Start Time Stop Time Status Last Admin Dose Admin Midazolam HCl 100 ml @ 1 mls/hr Q24H IV 03/16/25 16:30 03/23/25 14:52 2 MLS/HR Diagnostic Test (Pha) 1 strip Q6HR 03/16/25 18:00 04/05/25 06:00 1 STRIP Insulin Human Regular FOLLOW SLIDING SCALE Q6HR SC 03/16/25 18:00 04/05/25 06:30 2 UNITS Dextrose 50 ml UD IV 03/16/25 17:15 Folic Acid 1 mg/ Dextrose 50.2 ml @ 200.8 mls/ hr DAILY INJ 03/17/25 10:00 04/04/25 10:04 200.8 MLS/HR Thiamine HCl 100 mg DAILY IV 03/18/25 10:00 04/04/25 09:59 100 MG Atorvastatin Calcium 40 mg HS PO 03/17/25 22:00 Hold Sucralfate 1 gm QID@0600,1130,1700,2200 GT 03/23/25 17:00 04/05/25 06:46 1 GM Pantoprazole Sodium 40 mg BID IV 03/26/25 22:00 04/04/25 22:32 40 MG Ipratropium [place] 0.5 mg Q6HR NEB 03/28/25 12:00 04/05/25 06:24 0.5 MG Levalbuterol HCl 0.625 mg Q6HR NEB 03/28/25 12:00 04/05/25 06:23 0.625 MG Nicotine 1 patch DAILY TD 03/29/25 10:00 04/04/25 10:00 1 PATCH Lorazepam 0.5 mg [id number] PRN IV 03/28/25 19:30 04/05/25 07:19 0.5 MG Clonidine HCl 0.2 mg TID PO 03/29/25 14:00 Hold 04/02/25 14:57 0.2 MG Furosemide 20 mg BIDD IV 03/29/25 18:00 04/05/25 06:43 20 MG Losartan Potassium 100 mg DAILY PO 03/30/25 10:00 04/02/25 10:57 100 MG Enteral Nutritional Formula 1,000 ml 40ML/HR GT 03/30/25 10:00 04/02/25 14:59 1,000 ML Glycopyrrolate 0.2 mg TID IV 03/30/25 22:00 04/05/25 06:43 0.2 MG Ceftriaxone Sodium 50 ml @ 100 mls/hr DAILY@09 IV 04/04/25 09:00 04/05/25 08:33 100 MLS/HR Metronidazole 100 ml @ 100 mls/hr Q8HR IV 04/03/25 14:00 04/05/25 06:43 100 MLS/HR Ondansetron HCl 4 mg Q4HPRN PRN IV 04/03/25 10:00 Amino Acids 0 ml @ 0 mls/hr PER PHARMACY IV 04/03/25 10:00 Labetalol HCl 5 mg Q4HP PRN IV 04/03/25 11:30 Hydromorphone HCl 0.5 mg Q4HPRN PRN IV 04/03/25 11:30 04/04/25 10:15 0.5 MG Lidocaine HCl 0.5 ml ONCE PRN ID 04/03/25 16:45 04/03/25 17:30 0.5 ML Sodium Chloride 10 ml QSHIFT@10,22 IV 04/03/25 22:00 04/04/25 22:00 10 ML Fat Emulsion Intravenous 100 ml/Sodium Chloride 30 meq/ Calcium Gluconate 2.3 meq/Magnesium Sulfate 8 meq/ Multivitamins 10 ml/Chromium/ Copper/Manganese/ Zinc 1 ml/Amino Acids/Dextrose/ Purified Water 1,525.4462 ml @ 64 mls/hr [id number] IV 04/04/25 22:00 04/05/25 21:59 04/04/25 22:34 64 MLS/HR laboratory and microbiology Laboratory Tests 04/05/25 04:00 Test 04/05/25 04:00 Range/Units Serum Glucose 115 H 74-106 mg/dL Problem List/Assessment/Plan Problem List/Assessment/Plan 04/04/25 doing well, wound clean and well approximated, dran with sero sanguineous drainage, t tube draining clear bile, he is feeling "much better" and is hungry. labs reviewed. will dc ngt and start po intake 04/05/25 MARKEDLY IMPROVED, ABDOMEN NON DISTENDED APPROPRIATELY TENDER, T TUBE WITH CLEAR BILE, KWAN DRAIN SEROSANGUINEOUS WILL ADVANCE PO INTAKE, NEEDS PHYSICAL THERAPY Plan discussed with: Patient Dietary Evaluation Review Recommendations by RD: Increase Calorie Intake, PPN/TPN Comments: Pt meets criteria 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 based on severe wt loss 35lb/24% in 5 month, intake <50% estimated requirement x 5 days, severe muscle wasting and fat depletion Nutrition Recommendation: 1) PPN/TPN if NPO continues 2) Advance to soft diet as medically feasible 3) Ensure Enlive 240ml TID if pt resumes PO diet 4) Monitor NPO status, lab values, weight trend, and I/O Expected Outcomes/Goals: Intake to meet >75% estimated needs GI symptoms to improve Fu 2-3 days Food and Nutrition Intake (Sev: <50% est energy req 5days Interpretation of weight loss: >10% in 6 months Body Fat Depletion (Severe): Mod to Severe Depletion Muscle Mass (Severe): Mod to Severe Depletion Protein Calorie Malnutrition: Severe Is there a minimum of two crit: Yes LOBO BOSWELL MD Apr 05, 2025 09:45
[2025-04-05] MEDS: SODIUM PHOSPHATES 24 MEQ in SODIUM CHL 0.9% 100 ML IV ONE (12:26)
[2025-04-05] MEDS: LABETALOL HCL 20 MG/4 ML VL IV PRN (14:58)
--- NOTE | 2025-04-05 15:50 | DVHPN2 ---
Progress Note - Dictate Date Seen: Apr 05, 2025 Medical Necessity Reason Pt with a Central, PICC or Fol: Yes The following are medically ne: Barrios Catheter Subjective Mr. Perez is a 49 years old right-handed gentleman with a history of hypertension, dyslipidemia, multiple strokes, DVT, he was brought to the [facility] on 03/11/2025 with a chief complaint of diarrhea, history is obtained from his , the chart review I saw him on 08/23/2023 for TIA, 10/27/2024 for encephalopathy I have seen and examined the patient, I have talked to his nurse, I have seen and examined the patient, I have talked to his nurse, he is weak, oriented to person, place, he knows year and month, he has some abnormal ideation, he told his nurse that the hero in the movies was coping him Stool occult blood, 03/13/2025, 03/29/2025: Positive UDS, 03/12/2025: Negative Plasma alcohol, 03/12/2025: <3 Urinalysis, 03/12/2025: WBC: One, urine leukocyte esterase: Negative ABG, 03/16/25: Hypoxia, respiratory acidosis WBC/Hb/PLT'/MCV, 03/16/25: 10.l 6/7.9/339/82.4 Na, 03/11/2025: 129, 03/12/2025: 130, 129, 03/15/25: 145, 03/16/25: 142 BUNs/CR, 08/22/2023: 15/1.45, 03/11/2025: 55/1.77, 03/13/2025: 43/1.58, 02/2725: 65/2.56 GFR, 08/22/2023: 59 TBI/AST/ALT/AP,: 0.8/269/450/398 TG/CHO L/LDL/HDL, 08/2023: 136/166/111/39 Vitamin B12, 03/12/25: 852 Folic acid, 03/12/2025: 12.28 TSH, 08/23/2023: 4.25 Ultrasound, 03/24/2025: Gallbladder entirely distended with sludge with gallbladder wall thickening and pericholecystic edema, concerning for cholecystitis. Recommend surgical consultation HIDA scan. Dilated common bile duct measuring 16 mm which can be further evaluated with MRCP. Echogenic liver which can be seen with hepatic steatosis, cirrhosis. Right pleural effusion Extremity venous study, right arm, 11/09/2024: Thrombus is seen in the cephalic vein in the forearm. DONAL, 08/23/2023: 1. No evidence of intracardiac source of embolus in the study conducted today. 2. Normal valves without significant masses or change vegetations were discernible. 3. No evidence of intra-atrial shunting by bubble study and color Doppler. 4. Mild atherosclerotic plaquing was visualized in the arch of the aorta without evidence of dissection in the visualized part EGD, 03/13/2025: 1. 1-2 cm sliding-type hiatal hernia with severe grade C linear erosive esophagitis with esophageal ulcers extending into the distal 15 cm of the esophagus 2. Patient had a persistent duodenal bulb ulcer seen just inside the pyloric opening which was large coalescing with a visible sutures; there was no active bleeding or visible vessel but there was acute on chronic inflammation 3. Patient had deformity of the postbulbar duodenal area and I was able to see the 2nd part of the duodenum but there was area of debris and ongoing chronic ulceration inflammation and the endoscope was not advanced beyond this area 3. Patient had mild gastritis and some old coffee-ground within the stomach Chest x-ray, 03/12/2025: Mild chronic appearing left basilar pulmonary airspace disease and possible small pleural effusion Chest x-ray, 03/13/2025: 1. Enteric tube terminates in the stomach. 2. Worsening bilateral interstitial and alveolar opacities. Chest x-ray, : Endotracheal tube and right IJ approach central venous catheters are in satisfactory position. Trace htkp-hubpcew-hyzb-right pleural effusions with right retro lower lung zone linear atelectasis/ fluid within the fissure. CT head, 10/24/2024: 1. No intracranial hemorrhage or mass effect. 2. Bchv-oo-pigcultq chronic microvascular ischemic changes. 3. Old bilateral basal ganglia lacunar infarcts. 4. Small bilateral mastoid effusions. CT head, 03/17/2025: 1. New medial right parieto-occipital focal region of diminished parenchymal attenuation within the medial right parietal occipital lobes. This is concerning for an acute to subacute infarct. Recommend further evaluation with MRI. 2. No evidence of acute intracranial hemorrhage, mass effect or hydrocephalus. 3. Chronic sequelae of microangiopathy and atrophic cortical volume loss.4. Multifocal chronic lacunar infarcts as outlined above. CT abdomen/pelvis, 10/04/2024: 1. Extensive intra-abdominal free air concerning for perforated viscus. Surgical consultation is recommended. 2. Enteritis is seen in multiple loops of small bowel in the left hemiabdomen. 3. Moderate abdominopelvic ascites. 4. Small right pleural effusion. CTA neck, head, 08/22/2023:1. CTA head demonstrates no evidence of large vessel occlusion, aneurysm, or significant stenosis. 2. CTA neck demonstrates no evidence of carotid or vertebral dissection or significant stenosis. 3. No noncontrast CT head was performed. 4. Additional findings as detailed above MRI head, 08/23/2023: No acute infarct, intracranial hemorrhage, mass effect, or hydrocephalus. Moderate periventricular and deep subcortical white matter T2 hyperintensities which are nonspecific, but most likely related to sequela of chronic microvascular ischemic changes (I have reviewed the MRI films with our in-house radiologist, Dr. Black, the patient had bilateral multiple subacute/chronic infarcts) MRI head, 11/01/2024: No acute cerebrovascular ischemia. [id number] chronic microvascular ischemic changes. Bilateral mastoid effusions. Old bilateral basal ganglia / lopes radiata infarcts. MR head, 03/16/2025: Infarcts involving multiple vascular territories as described. vital signs Vital Sign Date Time Temp Pulse Resp B/P (MAP) Pulse Ox O2 Delivery O2 Flow Rate FiO2 04/05/25 15:00 116 28 151/96 (114) 97 04/05/25 14:00 Nasal Cannula* 2 28 04/05/25 12:00 98.2 98.2 Total Intake and Output 04/04/25 04/04/25 04/05/25 15:00 23:00 07:00 Intake Total 1256.2 ml 823 ml 912 ml Output Total 670 ml 1755 ml Balance 1256.2 ml 153 ml -843 ml medications Current Medications Medications Dose Ordered Sig/Wally Route Start Time Stop Time Status Last Admin Dose Admin Midazolam HCl 100 ml @ 1 mls/hr Q24H IV 03/16/25 16:30 03/23/25 14:52 2 MLS/HR Diagnostic Test (Pha) 1 strip Q6HR 03/16/25 18:00 04/05/25 11:49 1 STRIP Insulin Human Regular FOLLOW SLIDING SCALE Q6HR SC 03/16/25 18:00 04/05/25 11:53 2 UNITS Dextrose 50 ml UD IV 03/16/25 17:15 Folic Acid 1 mg/ Dextrose 50.2 ml @ 200.8 mls/ hr DAILY INJ 03/17/25 10:00 04/05/25 09:47 200.8 MLS/HR Thiamine HCl 100 mg DAILY IV 03/18/25 10:00 04/05/25 09:47 100 MG Atorvastatin Calcium 40 mg HS PO 03/17/25 22:00 Hold Sucralfate 1 gm QID@0600,1130,1700,2200 GT 03/23/25 17:00 04/05/25 11:52 1 GM Pantoprazole Sodium 40 mg BID IV 03/26/25 22:00 04/05/25 09:46 40 MG Ipratropium [place] 0.5 mg Q6HR NEB 03/28/25 12:00 04/05/25 12:26 0.5 MG Levalbuterol HCl 0.625 mg Q6HR NEB 03/28/25 12:00 04/05/25 12:26 0.625 MG Nicotine 1 patch DAILY TD 03/29/25 10:00 04/05/25 09:48 1 PATCH Lorazepam 0.5 mg [id number] PRN IV 03/28/25 19:30 04/05/25 07:19 0.5 MG Clonidine HCl 0.2 mg TID PO 03/29/25 14:00 Hold 04/02/25 14:57 0.2 MG Furosemide 20 mg BIDD IV 03/29/25 18:00 04/05/25 06:43 20 MG Losartan Potassium 100 mg DAILY PO 03/30/25 10:00 04/05/25 09:48 100 MG Enteral Nutritional Formula 1,000 ml 40ML/HR GT 03/30/25 10:00 04/02/25 14:59 1,000 ML Glycopyrrolate 0.2 mg TID IV 03/30/25 22:00 04/05/25 06:43 0.2 MG Ceftriaxone Sodium 50 ml @ 100 mls/hr DAILY@09 IV 04/04/25 09:00 04/05/25 08:33 100 MLS/HR Metronidazole 100 ml @ 100 mls/hr Q8HR IV 04/03/25 14:00 04/05/25 14:46 100 MLS/HR Ondansetron HCl 4 mg Q4HPRN PRN IV 04/03/25 10:00 Amino Acids 0 ml @ 0 mls/hr PER PHARMACY IV 04/03/25 10:00 Labetalol HCl 5 mg Q4HP PRN IV 04/03/25 11:30 04/05/25 14:58 5 MG Hydromorphone HCl 0.5 mg Q4HPRN PRN IV 04/03/25 11:30 04/05/25 09:54 0.5 MG Lidocaine HCl 0.5 ml ONCE PRN ID 04/03/25 16:45 04/03/25 17:30 0.5 ML Sodium Chloride 10 ml QSHIFT@10,22 IV 04/03/25 22:00 04/05/25 09:48 10 ML Fat Emulsion Intravenous 100 ml/Sodium Chloride 30 meq/ Calcium Gluconate 2.3 meq/Magnesium Sulfate 8 meq/ Multivitamins 10 ml/Chromium/ Copper/Manganese/ Zinc 1 ml/Amino Acids/Dextrose/ Purified Water 1,525.4462 ml @ 64 mls/hr [id number] IV 04/04/25 22:00 04/05/25 21:59 04/04/25 22:34 64 MLS/HR Fat Emulsion Intravenous 100 ml/Sodium Chloride 40 meq/ Potassium Chloride 20 meq/ Potassium Phosphate 22 meq/ Calcium Gluconate 4.65 meq/ Magnesium Sulfate 6 meq/ Multivitamins 10 ml/Chromium/ Copper/Manganese/ Zinc 1 ml/Amino Acids/Dextrose/ Purified Water 1,647.5 ml @ 68 mls/hr [id number] IV 04/05/25 22:00 04/06/25 21:59 objective The patient is well-nourished and well-developed with no distress. MENTAL STATUS: Subjective CRANIAL NERVES: Pupils are equal, round and reactive. EOMs full and conjugate. Facial sensation intact in all three divisions bilaterally. Mandibular strength intact. Facial muscles symmetrical and strength intact. SENSATION: Okay to touch MOTOR: Normal tone in the upper and lower extremity. Normal muscle bulk. No fasciculations. Muscle power: Right arm: 2/5, right le/5, left arm: 4/5, left le/5 REFLEXES: Deep tendon reflexes are symmetrical, 3-4/4 in the knees and 4/4 in the ankles. No pathological reflexes. CEREBELLAR/COORDINATION: Deferred GAIT/STATION: deferred. laboratory and microbiology Laboratory Tests 04/05/25 04:00 Test 04/05/25 04:00 Range/Units Serum Glucose 115 H 74-106 mg/dL Problem List Altered mental status Metabolic encephalopathy secondary to sepsis, septic shock, hypernatremia Hypoxic encephalopathy Peptic ulcer, GI bleeding, anemia Respiratory failure Right hemiparesis Acute multiple strokes in different arterial territories (MRI 03/18/25) Multiple chronic strokes Maybe secondary to history methamphetamine, cocaine, alcohol use History of alcohol abuse History of cocaine, methamphetamine abuse Assessment/Plan Monitoring Supportive treatment IIV antibiotics Aspirin 81 mg daily later Lipitor later TPN Thiamine supplementation Folic acid supplementation GI service on case Nephrology service on case More recommended per clinical course This medical document was created using an electronic medical record system with [employer] dictation system. Although this document has been carefully reviewed, there may still be some phonetic and typographical errors. These areas are purely typographical due to imperfect Prognosis Poor Dietary Evaluation Review Recommendations by RD: Increase Calorie Intake, PPN/TPN Comments: Pt meets criteria 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 based on severe wt loss 35lb/24% in 5 month, intake <50% estimated requirement x 5 days, severe muscle wasting and fat depletion Nutrition Recommendation: 1) PPN/TPN if NPO continues 2) Advance to soft diet as medically feasible 3) Ensure Enlive 240ml TID if pt resumes PO diet 4) Monitor NPO status, lab values, weight trend, and I/O Expected Outcomes/Goals: Intake to meet >75% estimated needs GI symptoms to improve Fu 2-3 days Food and Nutrition Intake (Sev: <50% est energy req 5days Interpretation of weight loss: >10% in 6 months Body Fat Depletion (Severe): Mod to Severe Depletion Muscle Mass (Severe): Mod to Severe Depletion Protein Calorie Malnutrition: Severe Is there a minimum of two crit: Yes Plan discussed with: Other Total Time (mins): 35 CC Plasma Assessment Blood Product Administration S: [id number] LEANDRO BLACK MD Apr 05, 2025 15:50
--- NOTE | 2025-04-05 21:54 | DVHPN2 ---
Reviewed: Care Plan, H&P, Labs Changes from previous H/P or p: No Changes General: Per HPI Eyes: No Pain, No Vision change, No Conjunctivae inflammation, No Eyelid inflammation, No Other, No Redness ENT: No Ear pain, No Ear discharge, No Nose pain, No Nose discharge, No Nose congestion, No Mouth pain, No Mouth swelling, No Throat pain, No Throat swelling, No Other Cardiovascular: No Chest Pain, No Palpitations, No Orthopnea, No Paroxysmal Noc. Dyspnea, No Edema, No Lt Headedness, No Other Respiratory: No Cough, No Dry, No Shortness of breath, No SOB with excertion, No Wheezing, No Hemoptysis, No Pleuritic Pain, No Sputum, No Other Gastrointestinal: Melena Musculoskeletal: No other, No neck pain, No shoulder pain, No arm pain, No back pain, No hand pain, No leg pain, No foot pain Skin: No Rash, No Lesions, No Jaundice, No Bruising, No Other Objective Vitals Vital Signs Date Time Temp Pulse Resp B/P (MAP) Pulse Ox O2 Delivery O2 Flow Rate FiO2 04/05/25 21:14 127 157/104 04/05/25 20:00 24 96 Room Air* 0 21 04/05/25 16:00 97.9 97.9 Intake/Output Intake and Output 04/05/25 07:00 Intake Total 2991.2 ml Output Total 2425 ml Balance 566.2 ml Intake Oral 600 ml IV Total 2391.2 ml Output Urine Total 2150 ml Gastric Drainage Total 225 ml Drainage Total 50 ml # Bowel Movements 1 General Appearance: Alert Lungs: Clear to auscultation, Normal air movement Cardiovascular: Regular rate Abdomen: Normal bowel sounds Extremities: No cyanosis Medications Current Medications Medications Dose Ordered Sig/Wally Route Start Time Stop Time Status Last Admin Dose Admin Midazolam HCl 100 ml @ 1 mls/hr Q24H IV 03/16/25 16:30 03/23/25 14:52 2 MLS/HR Diagnostic Test (Pha) 1 strip Q6HR 03/16/25 18:00 04/05/25 17:25 1 STRIP Insulin Human Regular FOLLOW SLIDING SCALE Q6HR SC 03/16/25 18:00 04/05/25 17:28 2 UNITS Dextrose 50 ml UD IV 03/16/25 17:15 Folic Acid 1 mg/ Dextrose 50.2 ml @ 200.8 mls/ hr DAILY INJ 03/17/25 10:00 04/05/25 09:47 200.8 MLS/HR Thiamine HCl 100 mg DAILY IV 03/18/25 10:00 04/05/25 09:47 100 MG Atorvastatin Calcium 40 mg HS PO 03/17/25 22:00 Hold Sucralfate 1 gm QID@0600,1130,1700,2200 GT 03/23/25 17:00 04/05/25 17:29 1 GM Pantoprazole Sodium 40 mg BID IV 03/26/25 22:00 04/05/25 09:46 40 MG Ipratropium Norlina 0.5 mg Q6HR NEB 03/28/25 12:00 04/05/25 18:11 0.5 MG Levalbuterol HCl 0.625 mg Q6HR NEB 03/28/25 12:00 04/05/25 18:11 0.625 MG Nicotine 1 patch DAILY TD 03/29/25 10:00 04/05/25 09:48 1 PATCH Lorazepam 0.5 mg [id number] PRN IV 03/28/25 19:30 04/05/25 07:19 0.5 MG Clonidine HCl 0.2 mg TID PO 03/29/25 14:00 Hold 04/02/25 14:57 0.2 MG Furosemide 20 mg BIDD IV 03/29/25 18:00 04/05/25 17:29 20 MG Losartan Potassium 100 mg DAILY PO 03/30/25 10:00 04/05/25 09:48 100 MG Glycopyrrolate 0.2 mg TID IV 03/30/25 22:00 04/05/25 06:43 0.2 MG Ceftriaxone Sodium 50 ml @ 100 mls/hr DAILY@09 IV 04/04/25 09:00 04/05/25 08:33 100 MLS/HR Metronidazole 100 ml @ 100 mls/hr Q8HR IV 04/03/25 14:00 04/05/25 14:46 100 MLS/HR Ondansetron HCl 4 mg Q4HPRN PRN IV 04/03/25 10:00 Amino Acids 0 ml @ 0 mls/hr PER PHARMACY IV 04/03/25 10:00 Labetalol HCl 5 mg Q4HP PRN IV 04/03/25 11:30 04/05/25 21:14 5 MG Hydromorphone HCl 0.5 mg Q4HPRN PRN IV 04/03/25 11:30 04/05/25 18:00 0.5 MG Lidocaine HCl 0.5 ml ONCE PRN ID 04/03/25 16:45 04/03/25 17:30 0.5 ML Sodium Chloride 10 ml QSHIFT@10,22 IV 04/03/25 22:00 04/05/25 09:48 10 ML Fat Emulsion Intravenous 100 ml/Sodium Chloride 30 meq/ Calcium Gluconate 2.3 meq/Magnesium Sulfate 8 meq/ Multivitamins 10 ml/Chromium/ Copper/Manganese/ Zinc 1 ml/Amino Acids/Dextrose/ Purified Water 1,525.4462 ml @ 64 mls/hr [id number] IV 04/04/25 22:00 04/05/25 21:59 04/04/25 22:34 64 MLS/HR Fat Emulsion Intravenous 100 ml/Sodium Chloride 40 meq/ Potassium Chloride 20 meq/ Potassium Phosphate 22 meq/ Calcium Gluconate 4.65 meq/ Magnesium Sulfate 6 meq/ Multivitamins 10 ml/Chromium/ Copper/Manganese/ Zinc 1 ml/Amino Acids/Dextrose/ Purified Water 1,647.5 ml @ 68 mls/hr [id number] IV 04/05/25 22:00 04/06/25 21:59 Enteral Nutritional Formula 240 ml TIDWM PO 04/06/25 08:00 Laboratory Results Laboratory Tests 04/05/25 04:00 Chemistry Test 04/05/25 04:00 Albumin 2.6 g/dL (3.2-4.8) L Calcium Level 8.1 mg/dL (8.7-10.4) L Magnesium Level 2.0 mg/dL (1.6-2.6) Phosphorus Level 1.5 mg/dL (2.4-5.1) L Total Protein 5.7 g/dL (5.7-8.2) LFT Test 04/05/25 04:00 Alanine Aminotransferase (ALT) 27 U/L (7-40) Alkaline Phosphatase 188 U/L (46-116) H Aspartate Amino Transferase (AST) 28 U/L (13-40) Total Bilirubin 0.2 mg/dL (0.2-1.0) Urinalysis Test 03/12/25 05:00 03/12/25 10:20 03/17/25 06:30 Urine Color Light-yellow (Yellow) Urine Clarity Clear (Clear) Urine pH 5.5 (5.0-9.0) Urine Specific Pierce 1.013 (1.001-1.035) Urine Protein Trace (Negative) H Urine Ketones Trace (Negative) Urine Blood Negative /uL (Negative) Urine Nitrite Negative (Negative) Urine Bilirubin Negative (Negative) Urine Urobilinogen Normal mg/dL (Negative) Urine Leukocyte Esterase Negative /uL (Negative) Urine RBC <1 /hpf (0 - 3) Urine Microscopic WBC < 1 /HPF (0-3) Urine Squamous Epithelial Cells None seen /hpf (<5) Urine Bacteria None seen /hpf (None Seen) Urine Glucose Normal mg/dL (Normal) Urine Protein/Creatinine Ratio 2.26 Urine Total Protein 23.6 mg/dL (1-14) H Urine Creatinine 56.14 mg/dL (30.0-125.0) Urine Sodium 13 mmol/L (40-220) L Microbiology Microbiology Date/Time Source Procedure Growth Status 04/03/25 10:17 Gallbladder Gram Stain Pending Resulted 04/03/25 10:17 Gallbladder Anaerobic Culture - Preliminary Resulted 04/03/25 10:17 Gallbladder Aerobic Culture - Preliminary Resulted 03/16/25 16:06 Sputum Gram Stain - Final Complete 03/16/25 16:06 Respiratory Culture - Final Stenotrophomonas maltophilia Escherichia coli Presumptive Milady albicans Complete 03/13/25 11:53 Stool Stool Culture - Final Complete 03/13/25 11:53 Stool Shiga Toxin I & II - Final Complete 03/12/25 11:55 Urine - Barrios [place] Urine Culture - Final Complete 03/11/25 15:36 Blood Blood Culture - Final NO GROWTH AFTER 5 DAYS OF INCUBATION. Complete Labs and/or images reviewed: Labs reviewed by me, Image(s) reviewed by me Assessment/Plan Assessment/Plan NEURO: Acute metabolic encephalopathy secondary to acute ischemic stroke Acute or subacute ischemic stroke Hypertensive emergency Acute anxiety - CT head without contrast demonstrated new medial right parieto-occipital focal region of diminished parenchymal attenuation within the medial right parietal occipital lobes. This is concerning for an acute to subacute infarct with chronic multifocal lacunar infarct - MRI showed Infarcts involving multiple vascular territories involved medial right occipital lobe, posterior left occipital lobe, and left lopes radiata white matter tracts. Few additional tiny foci of diffusion restriction at the anterior right parietal cortex. - Neurology on board - hold aspirin and Plavix for now because of GI bleeding - atorvastatin 40 mg p.o. daily - Clonidine 0.2 mg p.o.tid, losartan 100 mg daily and IV labetalol 5 mg q.2h PRN SBP>150 - IV Ativan 0.5 mg q.12 PRN CARDIOVASCULAR: Chronic diastolic heart failure with preserved ejection fraction - Echo on 11/12 demonstrated EF 65%, MILD LVH AND MILD LV DIASTOLIC DYSFUNCTION - elevated BNP - CxR showed Bilateral interstitial opacities, small left basilar consolidation and pleural effusion - IV Lasix 20 mg b.i.d. PULMONARY: Acute hypoxic respiratory failure S/P extubation GASTROINTESTINAL: Acute GI bleed upper vs lower Partial small Intestinal obstruction likely secondary to fecal impaction. Cholelithiasis C diff positive Elevated alkaline phosphatase -CT abdomen/pelvis showed low-grade distal partial obstruction due to fecal retention. - Gastrograffin study showed Contrast is identified within the colon by 3 hours. No evidence of bowel obstruction. -EGD on 03/13/25 showed 1-2 cm sliding-type hiatal hernia with severe grade C linear erosive esophagitis with esophageal ulcers extending into the distal 15 cm of the esophagus persistent duodenal bulb ulcer seen just inside the pyloric opening which was large coalescing with a visible sutures; there was no active bleeding or visible vessel but there was acute on chronic inflammation deformity of the postbulbar duodenal area and but there was area of debris and ongoing chronic ulceration inflammation and the endoscope was not advanced beyond this area mild gastritis and some old coffee-ground within the stomach - GB U/S demonstrated gallbladder wall thickening and pericholecystic edema, concerning for cholecystitis and dilated CBD up to 16 mm. - MRCP scan demonstrated Choledocholithiasis in the mid to distal common bile duct predominantly dependently. - Day 1 S/P open cholecystectomy with common bile duct exploration with intrahepatic cholangiogram . - clear liquid diet - IV D5 with 0.45% normal saline with 40 mEq potassium at 100 mL/hours - IV ceftriaxone 1 g daily and IV metronidazole 500 mg t.i.d. - TPN per pharmacy, continue this for now - IV Protonix 40 mg bid - Carafate suspension 1 g q.i.d. - Zofran 4 mg IV q.4 PRN - Monitor Hand H, transfuse if hemoglobin less than 7 GENITOURINARY: GIOVANI on CKD likely hemodynamically mediated/VMN resolved - Monitor BMP METABOLIC: Hypernatremia Hypokalemia Hypophosphatemia - monitor BMP HEME: Severe microcytic hypochromic anemia due to GI bleeding Iron deficiency due to above Bilateral superficial thrombophlebitis - Patient received 4 units of PRBC - Monitor H&H INFECTIOUS DISEASE: Acute C diff infection - hold po vanc because of upper GI bleeding Nicotine dependence - Nicotine dependence 21 g/24 hours when out of ICU 04/05/2025: seen at bedside, pt to be downgrade to ANNIE (due to high risk of aspiration) pt is alert and tracking DIET: TPN, NPO DVT prophylax: SCD GI prophylaxis: Protonix Bowel regimen: Code status: Full code Plan discussed with: Other My Orders Orders - JASE HALE DO Procedure Category Date Status Time Complete Blood Count LAB 04/06/25 Verified 04:00 Transfer Orders XFER 04/05/25 Transmitted 18:52 Nutritional PHA 04/06/25 In Process Supplements (Ensure 08:00 Date of Service: Apr 05, 2025 Billing Provider: JASE HALE DO Common Visit Codes: [id number] CARE 30-74 MIN JASE HALE DO Apr 05, 2025 21:54
[2025-04-05] MEDS: TPN PER PHARMACY IV NR (22:31)
[2025-04-06] VITALS (77 sets, daily range): BP systolic 120–153; BP diastolic 82–104; PULSE 104–136; RESP 14–35; TEMP 97.6–98.1; O2SAT 94–100
[2025-04-06 04:22] LABS: Hemoglobin 8.6 g/dL (13.5-17.5)
[2025-04-06 04:24] LABS: Hematocrit 25.8 % (41.0-53.0); Mean Corpuscular Hemoglobin 27.6 pg (28.0-32.0); Mean Corpuscular Volume 82.5 fL (80.0-100.0); Nucleated Red Blood Cells % 0.1 %
[2025-04-06 04:38] LABS: Alanine Aminotransferase 22 U/L (7-40); Anion Gap 11 (5-15); Glucose 105 mg/dL (74-106); Sodium 140 mmol/L (136-145)
[2025-04-06 04:39] LABS: BUN/Creatinine Ratio 37.0 (10.0-20.0); Magnesium 2.0 mg/dL (1.6-2.6); Total Protein 6.1 g/dL (5.7-8.2)
[2025-04-06 04:59] LABS: Alkaline Phosphatase 192 U/L (46-116); Blood Urea Nitrogen 37 mg/dL (9-23); Carbon Dioxide 32 mmol/L (20-31); Chloride 97 mmol/L (98-107); Potassium 3.3 mmol/L (3.5-5.1)
[2025-04-06 05:00] LABS: Albumin 2.7 g/dL (3.2-4.8); Bilirubin, Total 0.3 mg/dL (0.2-1.0); Calcium 8.1 mg/dL (8.7-10.4)
[2025-04-06 05:20] LABS: Anisocytosis Moderate
[2025-04-06] MEDS: POTASSIUM EFFERVESENT TAB 25 MEQ PO ONE (05:42)
[2025-04-06] MEDS: Ensure HIGH Protein Chocolate 8oz Bottle PO SCH (10:00)
[2025-04-06] MEDS: LACTATED RINGER'S 1,000 ML IV ONE ×2 (10:15→15:32)
--- NOTE | 2025-04-06 10:49 | DVHPN2 ---
Subjective Date Seen: Apr 06, 2025 Post op day Post op day: 3 Patient reports: No new complaints Objective Vitals Vital Sign Date Time Temp Pulse Resp B/P (MAP) Pulse Ox O2 Delivery O2 Flow Rate FiO2 04/06/25 10:17 128/89 04/06/25 08:00 21 96 Room Air* 0 21 04/06/25 08:00 121 04/06/25 04:00 98.1 98.1 Total Intake and Output 04/05/25 04/05/25 04/06/25 15:00 23:00 07:00 Intake Total 647.534 ml 786.668 ml 796 ml Output Total 800 ml 1100 ml 1760 ml Balance -152.466 ml -313.332 ml -964 ml Medications Current Medications Medications Dose Ordered Sig/Wally Route Start Time Stop Time Status Last Admin Dose Admin Diagnostic Test (Pha) 1 strip Q6HR 03/16/25 18:00 04/06/25 06:01 1 STRIP Insulin Human Regular FOLLOW SLIDING SCALE Q6HR SC 03/16/25 18:00 04/06/25 06:01 2 UNITS Dextrose 50 ml UD IV 03/16/25 17:15 Folic Acid 1 mg/ Dextrose 50.2 ml @ 200.8 mls/ hr DAILY INJ 03/17/25 10:00 04/06/25 10:16 200.8 MLS/HR Thiamine HCl 100 mg DAILY IV 03/18/25 10:00 04/06/25 10:18 100 MG Atorvastatin Calcium 40 mg HS PO 03/17/25 22:00 Hold Sucralfate 1 gm QID@0600,1130,1700,2200 GT 03/23/25 17:00 04/06/25 10:30 1 GM Pantoprazole Sodium 40 mg BID IV 03/26/25 22:00 04/06/25 10:16 40 MG Levalbuterol HCl 0.625 mg Q6HR NEB 03/28/25 12:00 04/06/25 07:15 0.625 MG Nicotine 1 patch DAILY TD 03/29/25 10:00 04/06/25 10:17 1 PATCH Lorazepam 0.5 mg [id number] PRN IV 03/28/25 19:30 04/05/25 07:19 0.5 MG Clonidine HCl 0.2 mg TID PO 03/29/25 14:00 Hold 04/02/25 14:57 0.2 MG Losartan Potassium 100 mg DAILY PO 03/30/25 10:00 04/06/25 10:17 100 MG Ceftriaxone Sodium 50 ml @ 100 mls/hr DAILY@09 IV 04/04/25 09:00 04/06/25 08:44 100 MLS/HR Metronidazole 100 ml @ 100 mls/hr Q8HR IV 04/03/25 14:00 04/06/25 05:51 100 MLS/HR Ondansetron HCl 4 mg Q4HPRN PRN IV 04/03/25 10:00 Amino Acids 0 ml @ 0 mls/hr PER PHARMACY IV 04/03/25 10:00 Labetalol HCl 5 mg Q4HP PRN IV 04/03/25 11:30 04/05/25 21:14 5 MG Hydromorphone HCl 0.5 mg Q4HPRN PRN IV 04/03/25 11:30 04/06/25 03:39 0.5 MG Lidocaine HCl 0.5 ml ONCE PRN ID 04/03/25 16:45 04/03/25 17:30 0.5 ML Sodium Chloride 10 ml QSHIFT@10,22 IV 04/03/25 22:00 04/06/25 10:16 10 ML Fat Emulsion Intravenous 100 ml/Sodium Chloride 40 meq/ Potassium Chloride 20 meq/ Potassium Phosphate 22 meq/ Calcium Gluconate 4.65 meq/ Magnesium Sulfate 6 meq/ Multivitamins 10 ml/Chromium/ Copper/Manganese/ Zinc 1 ml/Amino Acids/Dextrose/ Purified Water 1,647.5 ml @ 68 mls/hr [id number] IV 04/05/25 22:00 04/06/25 21:59 04/05/25 22:31 68 MLS/HR Enteral Nutritional Formula 240 ml TIDWM PO 04/06/25 08:00 Labs and Microbiology Laboratory Tests 04/06/25 03:50 Test 04/06/25 03:50 Range/Units Serum Glucose 105 74-106 mg/dL Ass/Plan Labs and/or images reviewed: Labs reviewed by me, Image(s) reviewed by me Problem List Assessment and plan : NEURO: Acute metabolic encephalopathy secondary to acute ischemic stroke; resolved; able to make decisions; alert and oriented X3 Acute or subacute ischemic stroke Hypertensive emergency Acute anxiety - CT head without contrast demonstrated new medial right parieto-occipital focal region of diminished parenchymal attenuation within the medial right parietal occipital lobes. This is concerning for an acute to subacute infarct with chronic multifocal lacunar infarct - MRI showed Infarcts involving multiple vascular territories involved medial right occipital lobe, posterior left occipital lobe, and left lopes radiata white matter tracts. Few additional tiny foci of diffusion restriction at the anterior right parietal cortex. - Neurology on board - hold aspirin and Plavix for now because of GI bleeding - atorvastatin 40 mg p.o. daily - Clonidine 0.2 mg p.o.tid, losartan 100 mg daily and IV labetalol 5 mg q.2h PRN SBP>150 - IV Ativan 0.5 mg q.12 PRN CARDIOVASCULAR: Chronic diastolic heart failure with preserved ejection fraction - Echo on 11/12 demonstrated EF 65%, MILD LVH AND MILD LV DIASTOLIC DYSFUNCTION - elevated BNP - CXR showed Bilateral interstitial opacities, small left basilar consolidation and pleural effusion - IV Lasix 20 mg b.i.d. PULMONARY: Acute hypoxic respiratory failure; to continue oxygen therapy as indicated; currently on 2 L/min via nasal cannula S/P extubation GASTROINTESTINAL: Acute GI bleed upper vs lower Partial small Intestinal obstruction likely secondary to fecal impaction. Cholelithiasis C diff positive Elevated alkaline phosphatase -CT abdomen/pelvis showed low-grade distal partial obstruction due to fecal retention. - Gastrografin study showed Contrast is identified within the colon by 3 hours. No evidence of bowel obstruction. -EGD on 03/13/25 showed 1-2 cm sliding-type hiatal hernia with severe grade C linear erosive esophagitis with esophageal ulcers extending into the distal 15 cm of the esophagus persistent duodenal bulb ulcer seen just inside the pyloric opening which was large coalescing with a visible sutures; there was no active bleeding or visible vessel but there was acute on chronic inflammation deformity of the postbulbar duodenal area and but there was area of debris and ongoing chronic ulceration inflammation and the endoscope was not advanced beyond this area mild gastritis and some old coffee-ground within the stomach - GB U/S demonstrated gallbladder wall thickening and pericholecystic edema, concerning for cholecystitis and dilated CBD up to 16 mm. - MRCP scan demonstrated Choledocholithiasis in the mid to distal common bile duct predominantly dependently. - Day 1 S/P open cholecystectomy with common bile duct exploration with intrahepatic cholangiogram . - clear liquid diet - IV D5 with 0.45% normal saline with 40 mEq potassium at 100 mL/hours - IV ceftriaxone 1 g daily and IV metronidazole 500 mg t.i.d. - TPN per pharmacy - IV Protonix 40 mg bid - Carafate suspension 1 g q.i.d. - Zofran 4 mg IV q.4 PRN - Monitor Hand H, transfuse if hemoglobin less than 7 GENITOURINARY: GIOVANI on CKD likely hemodynamically mediated/VMN resolved - Monitor BMP METABOLIC: Hypernatremia Hypokalemia Hypophosphatemia - monitor BMP and replace/correct electrolytes as indicated HEME: Severe microcytic hypochromic anemia due to GI bleeding Iron deficiency due to above Bilateral superficial thrombophlebitis - Patient received 4 units of PRBCs - Monitor H&H INFECTIOUS DISEASE: Acute C diff infection - po vancomycin on hold because of upper GI bleeding Nicotine dependence - Nicotine dependence 21 g/24 hours DIET: TPN, NPO DVT prophylax: SCDs due to GI bleed GI prophylaxis: Protonix IV Bowel regimen: Code status: Full code; goals of care rediscussed with the patient and the patient's for 20 minutes; continues to be full code LINES/DRAINS/ACCESS: Extubated on 03/27/25 LINES: Rt PICC line Drips: TPN Barrios catheter DISPOSITION: ICU Patient's status discussed with RN, Critical care time spent: 90 minutes, including patient care, chart review, and updating the family. Excluding any procedures. Case discussed with Dr. Hernandez I was physically present for the igles portions of the service provided to patient by THE RESIDENT. I have reviewed the documentation, discussed the case with resident and agree with the resident's documentation except as noted. Also the patient's clinical case was discussed with the patient's nurse. This medical document was created using an electronic medical record system with computerized dictation system. Although this document has been carefully reviewed, there might still be some phonetic and typographical errors. These areas are purely typographical due to imperfections of the software programs, and do not reflect any compromise in the patient's medical care. Late signature. Assessment/Plan s/p open cholecystectomy 04/06/25 abdomen soft, non distended wound clean dry and intact denies nausea or vomiting nellie drain serous sanguinous physical therapy Full liquid diet Plan discussed with patient Visit Coding Surgery Date of Service if different f: Apr 06, 2025 Billing Provider: LOBO BOSWELL MD Surgery Visit Codes: [id number] INP/OBS CARE(HIGH) YING SCRUGGS NP Apr 06, 2025 10:49
[2025-04-06] MEDS: POTASSIUM CHL 20MEQ/100ML 100 ML IV ONE (13:56)
--- NOTE | 2025-04-06 14:20 | DVHPN2 ---
Progress Note - Dictate Date Seen: Apr 06, 2025 Medical Necessity Reason Pt with a Central, PICC or Fol: Yes The following are medically ne: PICC Line, Barrios Catheter Subjective Patient is in ICU 101, extubated and awake Underwent a open cholecystectomy with CBD exploration T-tube was then placed; patient had extensive inflammatory changes around the duodenal area No active GI bleeding reported, hemoglobin stable at 8.6 Liver enzymes are normal and alk phos is trending down Hepatitis panel is negative and HIV is negative and ferritin is normal vital signs Vital Sign Date Time Temp Pulse Resp B/P (MAP) Pulse Ox O2 Delivery O2 Flow Rate FiO2 04/06/25 12:15 100 Room Air 0.0 04/06/25 12:15 21 04/06/25 12:15 111 20 04/06/25 12:00 97.9 136/91 (106) 97.9 Total Intake and Output 04/05/25 04/05/25 04/06/25 15:00 23:00 07:00 Intake Total 647.534 ml 786.668 ml 864 ml Output Total 800 ml 1100 ml 1760 ml Balance -152.466 ml -313.332 ml -896 ml medications Current Medications Medications Dose Ordered Sig/Wally Route Start Time Stop Time Status Last Admin Dose Admin Diagnostic Test (Pha) 1 strip Q6HR 03/16/25 18:00 04/06/25 11:37 1 STRIP Insulin Human Regular FOLLOW SLIDING SCALE Q6HR SC 03/16/25 18:00 04/06/25 11:37 2 UNITS Dextrose 50 ml UD IV 03/16/25 17:15 Folic Acid 1 mg/ Dextrose 50.2 ml @ 200.8 mls/ hr DAILY INJ 03/17/25 10:00 04/06/25 10:16 200.8 MLS/HR Thiamine HCl 100 mg DAILY IV 03/18/25 10:00 04/06/25 10:18 100 MG Atorvastatin Calcium 40 mg HS PO 03/17/25 22:00 Hold Sucralfate 1 gm QID@0600,1130,1700,2200 GT 03/23/25 17:00 04/06/25 10:30 1 GM Pantoprazole Sodium 40 mg BID IV 03/26/25 22:00 04/06/25 10:16 40 MG Levalbuterol HCl 0.625 mg Q6HR NEB 03/28/25 12:00 04/06/25 12:13 0.625 MG Nicotine 1 patch DAILY TD 03/29/25 10:00 04/06/25 10:17 1 PATCH Lorazepam 0.5 mg [id number] PRN IV 03/28/25 19:30 04/05/25 07:19 0.5 MG Clonidine HCl 0.2 mg TID PO 03/29/25 14:00 Hold 04/02/25 14:57 0.2 MG Losartan Potassium 100 mg DAILY PO 03/30/25 10:00 04/06/25 10:17 100 MG Ceftriaxone Sodium 50 ml @ 100 mls/hr DAILY@09 IV 04/04/25 09:00 04/06/25 08:44 100 MLS/HR Metronidazole 100 ml @ 100 mls/hr Q8HR IV 04/03/25 14:00 04/06/25 13:55 100 MLS/HR Ondansetron HCl 4 mg Q4HPRN PRN IV 04/03/25 10:00 Amino Acids 0 ml @ 0 mls/hr PER PHARMACY IV 04/03/25 10:00 Labetalol HCl 5 mg Q4HP PRN IV 04/03/25 11:30 04/05/25 21:14 5 MG Hydromorphone HCl 0.5 mg Q4HPRN PRN IV 04/03/25 11:30 04/06/25 03:39 0.5 MG Lidocaine HCl 0.5 ml ONCE PRN ID 04/03/25 16:45 04/03/25 17:30 0.5 ML Sodium Chloride 10 ml QSHIFT@22 IV 04/03/25 22:00 04/06/25 10:16 10 ML Fat Emulsion Intravenous 100 ml/Sodium Chloride 40 meq/ Potassium Chloride 20 meq/ Potassium Phosphate 22 meq/ Calcium Gluconate 4.65 meq/ Magnesium Sulfate 6 meq/ Multivitamins 10 ml/Chromium/ Copper/Manganese/ Zinc 1 ml/Amino Acids/Dextrose/ Purified Water 1,647.5 ml @ 68 mls/hr [id number] IV 04/05/25 22:00 04/06/25 21:59 04/05/25 22:31 68 MLS/HR Enteral Nutritional Formula 240 ml TIDWM PO 04/06/25 08:00 04/06/25 10:00 240 ML Fat Emulsion Intravenous 100 ml/Sodium Chloride 40 meq/ Potassium Chloride 20 meq/ Potassium Phosphate 22 meq/ Calcium Gluconate 4.65 meq/ Magnesium Sulfate 6 meq/ Multivitamins 10 ml/Chromium/ Copper/Manganese/ Zinc 1 ml/Amino Acids/Dextrose/ Purified Water 1,647.5 ml @ 68 mls/hr [id number] IV 04/06/25 22:00 04/07/25 21:59 objective General-cachectic male HEENT-normocephalic, no icterus, no pallor, neck supple Respiratory-fair air entry bilateral, no rhonchi, no wheeze [id number] heard, no murmurs appreciated Abdominal-soft, nontender, nondistended Musculoskeletal-no pedal edema, no calf tenderness Genitourinary-deferred Neuro-awake alert oriented x3, Psychiatric-not agitated, cooperative, laboratory and microbiology Laboratory Tests 04/06/25 03:50 Test 04/06/25 03:50 Range/Units Serum Glucose 105 74-106 mg/dL Problems(with codes): (1) Elevated liver function tests (2) Choledocholithiasis (3) TIA (transient ischemic attack) (4) C. difficile colitis (5) Elevated liver enzymes (6) Gallstone (7) Duodenal ulcer disease Prognosis Plan 1.Continue Protonix 40 mg p.o. b.i.d. 2. Carafate 1 g p.o. 4 times a day 3. DC aspirin NSAIDs smoking alcohol 4. Advance diet as tolerated 5. Discharge planning is in progress Dietary Evaluation Review Recommendations by RD: Increase Calorie Intake, PPN/TPN Comments: Pt meets criteria 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 based on severe wt loss 35lb/24% in 5 month, intake <50% estimated requirement x 5 days, severe muscle wasting and fat depletion Nutrition Recommendation: 1) PPN/TPN if NPO continues 2) Advance to soft diet as medically feasible 3) Ensure Enlive 240ml TID if pt resumes PO diet 4) Monitor NPO status, lab values, weight trend, and I/O Expected Outcomes/Goals: Intake to meet >75% estimated needs GI symptoms to improve Fu 2-3 days Food and Nutrition Intake (Sev: <50% est energy req 5days Interpretation of weight loss: >10% in 6 months Body Fat Depletion (Severe): Mod to Severe Depletion Muscle Mass (Severe): Mod to Severe Depletion Protein Calorie Malnutrition: Severe Is there a minimum of two crit: Yes Plan discussed with: Patient CC Plasma Assessment Blood Product Administration S: [id number] GURJIT NOBLE MD Apr 06, 2025 14:19
--- NOTE | 2025-04-06 15:14 | DVHPNRES ---
Progress Note Date Seen: Apr 06, 2025 Resident Creating Document: MABEL HERRERA RESIDENT Medical Necessity Reason Pt with a Central, PICC or Fol: Yes The following are medically ne: PICC Line, Barrios Catheter Subjective Review of Systems Patient seen and examined at bedside No acute complaints Objective vital signs Vital Sign Date Time Temp Pulse Resp B/P (MAP) Pulse Ox O2 Delivery O2 Flow Rate FiO2 04/06/25 14:30 109 21 137/91 (106) 98 04/06/25 14:00 Room Air* 0 21 04/06/25 12:00 97.9 97.9 Total Intake and Output 04/05/25 04/05/25 04/06/25 15:00 23:00 07:00 Intake Total 647.534 ml 786.668 ml 864 ml Output Total 800 ml 1100 ml 1760 ml Balance -152.466 ml -313.332 ml -896 ml medications Current Medications Medications Dose Ordered Sig/Wally Route Start Time Stop Time Status Last Admin Dose Admin Diagnostic Test (Pha) 1 strip Q6HR 03/16/25 18:00 04/06/25 11:37 1 STRIP Insulin Human Regular FOLLOW SLIDING SCALE Q6HR SC 03/16/25 18:00 04/06/25 11:37 2 UNITS Dextrose 50 ml UD IV 03/16/25 17:15 Folic Acid 1 mg/ Dextrose 50.2 ml @ 200.8 mls/ hr DAILY INJ 03/17/25 10:00 04/06/25 10:16 200.8 MLS/HR Thiamine HCl 100 mg DAILY IV 03/18/25 10:00 04/06/25 10:18 100 MG Atorvastatin Calcium 40 mg HS PO 03/17/25 22:00 Hold Sucralfate 1 gm QID@0600,1130,1700,2200 GT 03/23/25 17:00 04/06/25 10:30 1 GM Pantoprazole Sodium 40 mg BID IV 03/26/25 22:00 04/06/25 10:16 40 MG Levalbuterol HCl 0.625 mg Q6HR NEB 03/28/25 12:00 04/06/25 12:13 0.625 MG Nicotine 1 patch DAILY TD 03/29/25 10:00 04/06/25 10:17 1 PATCH Lorazepam 0.5 mg [id number] PRN IV 03/28/25 19:30 04/05/25 07:19 0.5 MG Clonidine HCl 0.2 mg TID PO 03/29/25 14:00 Hold 04/02/25 14:57 0.2 MG Losartan Potassium 100 mg DAILY PO 03/30/25 10:00 04/06/25 10:17 100 MG Ceftriaxone Sodium 50 ml @ 100 mls/hr DAILY@09 IV 04/04/25 09:00 04/06/25 08:44 100 MLS/HR Metronidazole 100 ml @ 100 mls/hr Q8HR IV 04/03/25 14:00 04/06/25 13:55 100 MLS/HR Ondansetron HCl 4 mg Q4HPRN PRN IV 04/03/25 10:00 Amino Acids 0 ml @ 0 mls/hr PER PHARMACY IV 04/03/25 10:00 Labetalol HCl 5 mg Q4HP PRN IV 04/03/25 11:30 04/05/25 21:14 5 MG Hydromorphone HCl 0.5 mg Q4HPRN PRN IV 04/03/25 11:30 04/06/25 03:39 0.5 MG Lidocaine HCl 0.5 ml ONCE PRN ID 04/03/25 16:45 04/03/25 17:30 0.5 ML Sodium Chloride 10 ml QSHIFT@10,22 IV 04/03/25 22:00 04/06/25 10:16 10 ML Fat Emulsion Intravenous 100 ml/Sodium Chloride 40 meq/ Potassium Chloride 20 meq/ Potassium Phosphate 22 meq/ Calcium Gluconate 4.65 meq/ Magnesium Sulfate 6 meq/ Multivitamins 10 ml/Chromium/ Copper/Manganese/ Zinc 1 ml/Amino Acids/Dextrose/ Purified Water 1,647.5 ml @ 68 mls/hr [id number] IV 04/05/25 22:00 04/06/25 21:59 04/05/25 22:31 68 MLS/HR Enteral Nutritional Formula 240 ml TIDWM PO 04/06/25 08:00 04/06/25 10:00 240 ML Fat Emulsion Intravenous 100 ml/Sodium Chloride 40 meq/ Potassium Chloride 20 meq/ Potassium Phosphate 22 meq/ Calcium Gluconate 4.65 meq/ Magnesium Sulfate 6 meq/ Multivitamins 10 ml/Chromium/ Copper/Manganese/ Zinc 1 ml/Amino Acids/Dextrose/ Purified Water 1,647.5 ml @ 68 mls/hr [id number] IV 04/06/25 22:00 04/07/25 21:59 Examination General Appearance: Alert, Oriented X3 HEENT: Atraumatic, PERRLA, EOMI, Mucous membrane moist/pink Respiratory: Bilateral crackles. Cardiovascular: Regular rate, Normal S1, Normal S2, No murmurs, no chest wall tenderness Abdominal: Surgical wound with dressing on the right upper quadrant with 2 KWAN drain, mildly tender, No hepatosplenomegaly, No masses, decreased bowel sounds Extremities: PICC line on the rt upper arm, No clubbing, No cyanosis, No edema, Normal pulses, No tenderness/swelling Skin: No rashes, No breakdown, No significant lesion Neuro: Normal speech, right-sided weakness, Strength at 5/5 X2 ext, Normal tone, Sensation intact, grossly intact cranial nerves Psych/Mental Status: could not be assessed laboratory and microbiology Laboratory Tests 04/06/25 03:50 Test 04/06/25 03:50 Range/Units Serum Glucose 105 74-106 mg/dL Microbiology Date/Time Source Procedure Growth Status 04/03/25 10:17 Gallbladder Gram Stain - Final Resulted 04/03/25 10:17 Gallbladder Anaerobic Culture - Preliminary Resulted 04/03/25 10:17 Aerobic Culture - Preliminary Enterococcus faecium - VRE Resulted 03/16/25 16:06 Sputum Gram Stain - Final Complete 03/16/25 16:06 Respiratory Culture - Final Stenotrophomonas maltophilia Escherichia coli Presumptive Milady albicans Complete 03/13/25 11:53 Stool Stool Culture - Final Complete 03/13/25 11:53 Stool Shiga Toxin I & II - Final Complete 03/12/25 11:55 Urine - Barrios [place] Urine Culture - Final Complete 03/11/25 15:36 Blood Blood Culture - Final NO GROWTH AFTER 5 DAYS OF INCUBATION. Complete Problem List/Assessment/Plan Problem List/Assessment/Plan NEURO: Acute metabolic encephalopathy secondary to acute ischemic stroke; resolved; able to make decisions; alert and oriented X3 Acute or subacute ischemic stroke Hypertensive emergency Acute anxiety - CT head without contrast demonstrated new medial right parieto-occipital focal region of diminished parenchymal attenuation within the medial right parietal occipital lobes. This is concerning for an acute to subacute infarct with chronic multifocal lacunar infarct - MRI showed Infarcts involving multiple vascular territories involved medial right occipital lobe, posterior left occipital lobe, and left lopes radiata white matter tracts. Few additional tiny foci of diffusion restriction at the anterior right parietal cortex. - Neurology on board - hold aspirin and Plavix for now because of GI bleeding - atorvastatin 40 mg p.o. daily - Clonidine 0.2 mg p.o.tid, losartan 100 mg daily and IV labetalol 5 mg q.2h PRN SBP>150 - IV Ativan 0.5 mg q.12 PRN CARDIOVASCULAR: Chronic diastolic heart failure with preserved ejection fraction - Echo on 11/12 demonstrated EF 65%, MILD LVH AND MILD LV DIASTOLIC DYSFUNCTION - elevated BNP - CXR showed Bilateral interstitial opacities, small left basilar consolidation and pleural effusion - IV Lasix 20 mg b.i.d. PULMONARY: Acute hypoxic respiratory failure; to continue oxygen therapy as indicated; currently room air S/P extubation GASTROINTESTINAL: 04/03/2025: S/P open cholecystectomy with common bile duct exploration with intrahepatic cholangiogram . Acute GI bleed upper vs lower Partial small Intestinal obstruction likely secondary to fecal impaction. Cholelithiasis C diff positive Elevated alkaline phosphatase -CT abdomen/pelvis showed low-grade distal partial obstruction due to fecal retention. - Gastrografin study showed Contrast is identified within the colon by 3 hours. No evidence of bowel obstruction. -EGD on 03/13/25 showed 1-2 cm sliding-type hiatal hernia with severe grade C linear erosive esophagitis with esophageal ulcers extending into the distal 15 cm of the esophagus persistent duodenal bulb ulcer seen just inside the pyloric opening which was large coalescing with a visible sutures; there was no active bleeding or visible vessel but there was acute on chronic inflammation deformity of the postbulbar duodenal area and but there was area of debris and ongoing chronic ulceration inflammation and the endoscope was not advanced beyond this area mild gastritis and some old coffee-ground within the stomach - GB U/S demonstrated gallbladder wall thickening and pericholecystic edema, concerning for cholecystitis and dilated CBD up to 16 mm. - MRCP scan demonstrated Choledocholithiasis in the mid to distal common bile duct predominantly dependently. - - clear liquid diet - IV ceftriaxone 1 g daily and IV metronidazole 500 mg t.i.d. - TPN per pharmacy - IV Protonix 40 mg bid - Carafate suspension 1 g q.i.d. - Zofran 4 mg IV q.4 PRN - Monitor Hand H, transfuse if hemoglobin less than 7- 04/06/25: HR elevated, dehydrated, 2 bolus of LR GENITOURINARY: GIOVANI on CKD likely hemodynamically mediated/VMN resolved - Monitor BMP METABOLIC: Hypernatremia Hypokalemia Hypophosphatemia - monitor BMP and replace/correct electrolytes as indicated HEME: Severe microcytic hypochromic anemia due to GI bleeding Iron deficiency due to above Bilateral superficial thrombophlebitis - Patient received 4 units of PRBCs - Monitor H&H INFECTIOUS DISEASE: Acute C diff infection - po vancomycin on hold because of upper GI bleeding Nicotine dependence - Nicotine dependence 21 g/24 hours DIET: TPN, NPO DVT prophylax: SCDs due to GI bleed GI prophylaxis: Protonix IV Bowel regimen: Code status: Full code; goals of care rediscussed with the patient and the patient's for 20 minutes; continues to be full code LINES/DRAINS/ACCESS: Extubated on 03/27/25 LINES: Rt PICC line Drips: TPN Barrios catheter DISPOSITION: ICU Patient's status discussed with RN, Critical care time spent: 90 minutes, including patient care, chart review, and updating the family. Excluding any procedures. Case discussed with Dr. Hale Plan discussed with: Patient, Other (rn) My Orders My Orders Orders - MABEL HERRERA Procedure Category Date Status Time Communication Order ORDERS 04/06/25 Transmitted 09:29 Lactated Ringer's PHA 04/06/25 Logged 15:00 Dietary Evaluation Review Recommendations by RD: Increase Calorie Intake, PPN/TPN Comments: Pt meets criteria 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 based on severe wt loss 35lb/24% in 5 month, intake <50% estimated requirement x 5 days, severe muscle wasting and fat depletion Nutrition Recommendation: 1) PPN/TPN if NPO continues 2) Advance to soft diet as medically feasible 3) Ensure Enlive 240ml TID if pt resumes PO diet 4) Monitor NPO status, lab values, weight trend, and I/O Expected Outcomes/Goals: Intake to meet >75% estimated needs GI symptoms to improve Fu 2-3 days Food and Nutrition Intake (Sev: <50% est energy req 5days Interpretation of weight loss: >10% in 6 months Body Fat Depletion (Severe): Mod to Severe Depletion Muscle Mass (Severe): Mod to Severe Depletion Protein Calorie Malnutrition: Severe Is there a minimum of two crit: Yes CC Plasma Assessment Blood Product Administration S: [id number] Date of Service: Apr 06, 2025 Billing Provider: JASE HALE DO Common Visit Codes: 61735-[id number] CARE 30-74 MIN MABEL HERRERA RESIDENT Apr 06, 2025 15:14 JASE HALE DO Apr 08, 2025 07:25
[2025-04-07] VITALS (29 sets, daily range): BP systolic 113–145; BP diastolic 70–97; PULSE 1–116; RESP 16–24; TEMP 97.6–99; O2SAT 96–100
[2025-04-07 04:37] LABS: Hematocrit 22.8 % (41.0-53.0); Hemoglobin 7.5 g/dL (13.5-17.5); Mean Corpuscular Hemoglobin 27.7 pg (28.0-32.0); Mean Corpuscular Volume 84.2 fL (80.0-100.0); Nucleated Red Blood Cells % 0.0 %
[2025-04-07 04:55] LABS: Alanine Aminotransferase 21 U/L (7-40); Anion Gap 8 (5-15); BUN/Creatinine Ratio 37.4 (10.0-20.0); Carbon Dioxide 29 mmol/L (20-31); Magnesium 1.9 mg/dL (1.6-2.6); Potassium 4.4 mmol/L (3.5-5.1)
[2025-04-07 04:59] LABS: Albumin 2.3 g/dL (3.2-4.8); Alkaline Phosphatase 166 U/L (46-116); Bilirubin, Total 0.3 mg/dL (0.2-1.0); Blood Urea Nitrogen 37 mg/dL (9-23); Calcium 7.8 mg/dL (8.7-10.4); Chloride 97 mmol/L (98-107); Glucose 373 mg/dL (74-106); Sodium 134 mmol/L (136-145); Total Protein 5.2 g/dL (5.7-8.2)
[2025-04-07 05:26] LABS: Anisocytosis Moderate
--- NOTE | 2025-04-07 09:53 | DVHPN2 ---
Progress Note - Dictate Date Seen: Apr 07, 2025 Medical Necessity Reason Pt with a Central, PICC or Fol: Yes The following are medically ne: PICC Line, Barrios Catheter Subjective Mr. Perez is a 49 years old right-handed gentleman with a history of hypertension, dyslipidemia, multiple strokes, DVT, he was [facility] to the [facility] on 03/11/2025 with a chief complaint of diarrhea, history is obtained from his , the chart review I saw him on 08/23/2023 for TIA, 10/27/2024 for encephalopathy I have seen and examined the patient, I have talked to his nurse, I have seen and examined the patient, I have talked to his nurse, he is weak, oriented to person, place, he follows verbal commands, he moves the left arm only for me, RN: Able to move the right arm a little bit, Stool occult blood, 03/13/2025, 03/29/2025: Positive UDS, 03/12/2025: Negative Plasma alcohol, 03/12/2025: <3 Urinalysis, 03/12/2025: WBC: One, urine leukocyte esterase: Negative ABG, 03/16/25: Hypoxia, respiratory acidosis WBC/Hb/PLT'/MCV, 03/16/25: 10.l 6/7.9/339/82.4 Na, 03/11/2025: 129, 03/12/2025: 130, 129, 03/15/25: 145, 03/16/25: 142 BUNs/CR, 08/22/2023: 15/1.45, 03/11/2025: 55/1.77, 03/13/2025: 43/1.58, 02/2725: 65/2.56 GFR, 08/22/2023: 59 TBI/AST/ALT/AP: 0.8/269/450/398 TG/CHO L/LDL/HDL, 08/2023: 136/166/111/39 Vitamin B12, 03/12/25: 852 Folic acid, 03/12/2025: 12.28 TSH, 08/23/2023: 4.25 Ultrasound, 03/24/2025: Gallbladder entirely distended with sludge with gallbladder wall thickening and pericholecystic edema, concerning for cholecystitis. Recommend surgical consultation HIDA scan. Dilated common bile duct measuring 16 mm which can be further evaluated with MRCP. Echogenic liver which can be seen with hepatic steatosis, cirrhosis. Right pleural effusion Extremity venous study, right arm, 11/09/2024: Thrombus is seen in the cephalic vein in the forearm. DONAL, 08/23/2023: 1. No evidence of intracardiac source of embolus in the study conducted today. 2. Normal valves without significant masses or change vegetations were discernible. 3. No evidence of intra-atrial shunting by bubble study and color Doppler. 4. Mild atherosclerotic plaquing was visualized in the arch of the aorta without evidence of dissection in the visualized part EGD, 03/13/2025: 1. 1-2 cm sliding-type hiatal hernia with severe grade C linear erosive esophagitis with esophageal ulcers extending into the distal 15 cm of the esophagus 2. Patient had a persistent duodenal bulb ulcer seen just inside the pyloric opening which was large coalescing with a visible sutures; there was no active bleeding or visible vessel but there was acute on chronic inflammation 3. Patient had deformity of the postbulbar duodenal area and I was able to see the 2nd part of the duodenum but there was area of debris and ongoing chronic ulceration inflammation and the endoscope was not advanced beyond this area 3. Patient had mild gastritis and some old coffee-ground within the stomach Chest x-ray, 03/12/2025: Mild chronic appearing left basilar pulmonary airspace disease and possible small pleural effusion Chest x-ray, 03/13/2025: 1. Enteric tube terminates in the stomach. 2. Worsening bilateral interstitial and alveolar opacities. Chest x-ray, : Endotracheal tube and right IJ approach central venous catheters are in satisfactory position. Trace cftq-[id number]-wizq-right pleural effusions with right retro lower lung zone linear atelectasis/ fluid within the fissure. CT head, 10/24/2024: 1. No intracranial hemorrhage or mass effect. 2. Npqw-bx-pyngkiec chronic microvascular ischemic changes. 3. Old bilateral basal ganglia lacunar infarcts. 4. Small bilateral mastoid effusions. CT head, 03/17/2025: 1. New medial right parieto-occipital focal region of diminished parenchymal attenuation within the medial right parietal occipital lobes. This is concerning for an acute to subacute infarct. Recommend further evaluation with MRI. 2. No evidence of acute intracranial hemorrhage, mass effect or hydrocephalus. 3. Chronic sequelae of microangiopathy and atrophic cortical volume loss.4. Multifocal chronic lacunar infarcts as outlined above. CT abdomen/pelvis, 10/04/2024: 1. Extensive intra-abdominal free air concerning for perforated viscus. Surgical consultation is recommended. 2. Enteritis is seen in multiple loops of small bowel in the left hemiabdomen. 3. Moderate abdominopelvic ascites. 4. Small right pleural effusion. CTA neck, head, 08/22/2023:1. CTA head demonstrates no evidence of large vessel occlusion, aneurysm, or significant stenosis. 2. CTA neck demonstrates no evidence of carotid or vertebral dissection or significant stenosis. 3. No noncontrast CT head was performed. 4. Additional findings as detailed above MRI head, 08/23/2023: No acute infarct, intracranial hemorrhage, mass effect, or hydrocephalus. Moderate periventricular and deep subcortical white matter T2 hyperintensities which are nonspecific, but most likely related to sequela of chronic microvascular ischemic changes (I have reviewed the MRI films with our in-house radiologist, Dr. Black, the patient had bilateral multiple subacute/chronic infarcts) MRI head, 11/01/2024: No acute cerebrovascular ischemia. [id number]-ebwrxvgd chronic microvascular ischemic changes. Bilateral mastoid effusions. Old bilateral basal ganglia / lopes radiata infarcts. MR head, 03/16/2025: Infarcts involving multiple vascular territories as described. vital signs Vital Sign Date Time Temp Pulse Resp B/P (MAP) Pulse Ox O2 Delivery O2 Flow Rate FiO2 04/07/25 08:00 19 99 Room Air* 0 21 04/07/25 08:00 98.0 112 138/85 (102) 98.0 Total Intake and Output 04/06/25 04/06/25 04/07/25 15:00 23:00 07:00 Intake Total 1844.2 ml 2152 ml 794 ml Output Total 1455 ml 740 ml Balance 1844.2 ml 697 ml 54 ml medications Current Medications Medications Dose Ordered Sig/Wally Route Start Time Stop Time Status Last Admin Dose Admin Diagnostic Test (Pha) 1 strip Q6HR 03/16/25 18:00 04/07/25 06:06 1 STRIP Insulin Human Regular FOLLOW SLIDING SCALE Q6HR SC 03/16/25 18:00 04/07/25 06:06 2 UNITS Dextrose 50 ml UD IV 03/16/25 17:15 Folic Acid 1 mg/ Dextrose 50.2 ml @ 200.8 mls/ hr DAILY INJ 03/17/25 10:00 04/06/25 10:16 200.8 MLS/HR Thiamine HCl 100 mg DAILY IV 03/18/25 10:00 04/06/25 10:18 100 MG Atorvastatin Calcium 40 mg HS PO 03/17/25 22:00 Hold Sucralfate 1 gm QID@0600,1130,1700,2200 GT 03/23/25 17:00 04/07/25 06:06 1 GM Pantoprazole Sodium 40 mg BID IV 03/26/25 22:00 04/06/25 21:48 40 MG Levalbuterol HCl 0.625 mg Q6HR NEB 03/28/25 12:00 04/07/25 06:47 0.625 MG Nicotine 1 patch DAILY TD 03/29/25 10:00 04/06/25 10:17 1 PATCH Lorazepam 0.5 mg [id number] PRN IV 03/28/25 19:30 04/07/25 04:09 0.5 MG Clonidine HCl 0.2 mg TID PO 03/29/25 14:00 Hold 04/02/25 14:57 0.2 MG Losartan Potassium 100 mg DAILY PO 03/30/25 10:00 04/06/25 10:17 100 MG Ceftriaxone Sodium 50 ml @ 100 mls/hr DAILY@09 IV 04/04/25 09:00 04/07/25 08:52 100 MLS/HR Metronidazole 100 ml @ 100 mls/hr Q8HR IV 04/03/25 14:00 04/07/25 06:06 100 MLS/HR Ondansetron HCl 4 mg Q4HPRN PRN IV 04/03/25 10:00 Amino Acids 0 ml @ 0 mls/hr PER PHARMACY IV 04/03/25 10:00 Labetalol HCl 5 mg Q4HP PRN IV 04/03/25 11:30 04/05/25 21:14 5 MG Hydromorphone HCl 0.5 mg Q4HPRN PRN IV 04/03/25 11:30 04/07/25 06:17 0.5 MG Lidocaine HCl 0.5 ml ONCE PRN ID 04/03/25 16:45 04/03/25 17:30 0.5 ML Sodium Chloride 10 ml QSHIFT@10,22 IV 04/03/25 22:00 04/06/25 21:49 10 ML Enteral Nutritional Formula 240 ml TIDWM PO 04/06/25 08:00 04/07/25 08:00 240 ML Fat Emulsion Intravenous 100 ml/Sodium Chloride 40 meq/ Potassium Chloride 20 meq/ Potassium Phosphate 22 meq/ Calcium Gluconate 4.65 meq/ Magnesium Sulfate 6 meq/ Multivitamins 10 ml/Chromium/ Copper/Manganese/ Zinc 1 ml/Amino Acids/Dextrose/ Purified Water 1,647.5 ml @ 68 mls/hr [id number] IV 04/06/25 22:00 04/07/25 21:59 04/06/25 21:51 68 MLS/HR objective The patient is well-nourished and well-developed with no distress. MENTAL STATUS: Subjective CRANIAL NERVES: Pupils are equal, round and reactive. EOMs full and conjugate. Facial sensation intact in all three divisions bilaterally. Mandibular strength intact. Facial muscles symmetrical and strength intact. SENSATION: Okay to touch MOTOR: Normal tone in the upper and lower extremity. Normal muscle bulk. No fasciculations. Muscle power: Right arm: 0/5, right le/5, left arm: 3- 4/5, left le/5 REFLEXES: Deep tendon reflexes are symmetrical, 3-4/4 in the knees and 4/4 in the ankles (stronger in the left ankle). No pathological reflexes. CEREBELLAR/COORDINATION: Deferred GAIT/STATION: deferred. laboratory and microbiology Laboratory Tests 04/07/25 03:40 Test 04/07/25 03:40 Range/Units Serum Glucose 373 #H 74-106 mg/dL Problem List Altered mental status Metabolic encephalopathy secondary to sepsis, septic shock, hypernatremia Hypoxic encephalopathy Peptic ulcer, GI bleeding, anemia Respiratory failure Right hemiparesis Acute multiple strokes in different arterial territories (MRI 03/18/25) Multiple chronic strokes Maybe secondary to history methamphetamine, cocaine, alcohol use History of alcohol abuse History of cocaine, methamphetamine abuse Worsening weakness in the left extremities, left lower extremity, to rule out acute stroke Assessment/Plan Monitoring Supportive treatment Follow up MR brain Occult stool blood IV antibiotics Protonix 40 mg b.i.d. Aspirin 81 mg daily later Lipitor later TPN Thiamine supplementation Folic acid supplementation GI service on case Nephrology service on case More recommended per clinical course This medical document was created using an electronic medical record system with [employer] dictation system. Although this document has been carefully reviewed, there may still be some phonetic and typographical errors. These areas are purely typographical due to imperfect Prognosis poor Dietary Evaluation Review Recommendations by RD: Increase Calorie Intake, PPN/TPN Comments: Pt meets criteria 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 based on severe wt loss 35lb/24% in 5 month, intake <50% estimated requirement x 5 days, severe muscle wasting and fat depletion Nutrition Recommendation: 1) PPN/TPN if NPO continues 2) Advance to soft diet as medically feasible 3) Ensure Enlive 240ml TID if pt resumes PO diet 4) Monitor NPO status, lab values, weight trend, and I/O Expected Outcomes/Goals: Intake to meet >75% estimated needs GI symptoms to improve Fu 2-3 days Food and Nutrition Intake (Sev: <50% est energy req 5days Interpretation of weight loss: >10% in 6 months Body Fat Depletion (Severe): Mod to Severe Depletion Muscle Mass (Severe): Mod to Severe Depletion Protein Calorie Malnutrition: Severe Is there a minimum of two crit: Yes Plan discussed with: Other CC Plasma Assessment Blood Product Administration S: [id number] LEANDRO BLACK MD Apr 07, 2025 09:53
--- NOTE | 2025-04-07 11:20 | MEDREC ---
[facility] ASP Intervention Section I [facility] ASP Intervention: Deescalate AB based on CS (Gallbladder culture resulted as positive for VRE, see susceptibilities.), Review courses of therapy (PLEASE CONSIDER REVIEWING COURSE OF THERAPY BASED ON CULTURE RESULTS IF CLINICALLY RELEVANT ) CLARKE JIMENEZ PHARMACIST Apr 07, 2025 11:20
--- NOTE | 2025-04-07 11:22 | DVHPN2 ---
Progress Note Date Seen: Apr 07, 2025 Medical Necessity Reason Pt with a Central, PICC or Fol: Yes The following are medically ne: PICC Line, Barrios Catheter Objective vital signs Vital Sign Date Time Temp Pulse Resp B/P (MAP) Pulse Ox O2 Delivery O2 Flow Rate FiO2 04/07/25 10:25 126/83 04/07/25 08:00 19 99 Room Air* 0 21 04/07/25 08:00 98.0 112 98.0 Total Intake and Output 04/06/25 04/06/25 04/07/25 15:00 23:00 07:00 Intake Total 1844.2 ml 2152 ml 794 ml Output Total 1455 ml 740 ml Balance 1844.2 ml 697 ml 54 ml medications Current Medications Medications Dose Ordered Sig/Wally Route Start Time Stop Time Status Last Admin Dose Admin Diagnostic Test (Pha) 1 strip Q6HR 03/16/25 18:00 04/07/25 06:06 1 STRIP Insulin Human Regular FOLLOW SLIDING SCALE Q6HR SC 03/16/25 18:00 04/07/25 06:06 2 UNITS Dextrose 50 ml UD IV 03/16/25 17:15 Folic Acid 1 mg/ Dextrose 50.2 ml @ 200.8 mls/ hr DAILY INJ 03/17/25 10:00 04/07/25 10:24 200.8 MLS/HR Thiamine HCl 100 mg DAILY IV 03/18/25 10:00 04/07/25 10:25 100 MG Atorvastatin Calcium 40 mg HS PO 03/17/25 22:00 Hold Sucralfate 1 gm QID@0600,1130,1700,2200 GT 03/23/25 17:00 04/07/25 06:06 1 GM Pantoprazole Sodium 40 mg BID IV 03/26/25 22:00 04/07/25 10:25 40 MG Levalbuterol HCl 0.625 mg Q6HR NEB 03/28/25 12:00 04/07/25 06:47 0.625 MG Nicotine 1 patch DAILY TD 03/29/25 10:00 04/07/25 10:25 1 PATCH Lorazepam 0.5 mg [id number] PRN IV 03/28/25 19:30 04/07/25 04:09 0.5 MG Clonidine HCl 0.2 mg TID PO 03/29/25 14:00 Hold 04/02/25 14:57 0.2 MG Losartan Potassium 100 mg DAILY PO 03/30/25 10:00 04/07/25 10:25 100 MG Ceftriaxone Sodium 50 ml @ 100 mls/hr DAILY@09 IV 04/04/25 09:00 04/07/25 08:52 100 MLS/HR Metronidazole 100 ml @ 100 mls/hr Q8HR IV 04/03/25 14:00 04/07/25 06:06 100 MLS/HR Ondansetron HCl 4 mg Q4HPRN PRN IV 04/03/25 10:00 Amino Acids 0 ml @ 0 mls/hr PER PHARMACY IV 04/03/25 10:00 Labetalol HCl 5 mg Q4HP PRN IV 04/03/25 11:30 04/05/25 21:14 5 MG Hydromorphone HCl 0.5 mg Q4HPRN PRN IV 04/03/25 11:30 04/07/25 06:17 0.5 MG Lidocaine HCl 0.5 ml ONCE PRN ID 04/03/25 16:45 04/03/25 17:30 0.5 ML Sodium Chloride 10 ml QSHIFT@10,22 IV 04/03/25 22:00 04/07/25 10:25 10 ML Enteral Nutritional Formula 240 ml TIDWM PO 04/06/25 08:00 04/07/25 08:00 240 ML Fat Emulsion Intravenous 100 ml/Sodium Chloride 40 meq/ Potassium Chloride 20 meq/ Potassium Phosphate 22 meq/ Calcium Gluconate 4.65 meq/ Magnesium Sulfate 6 meq/ Multivitamins 10 ml/Chromium/ Copper/Manganese/ Zinc 1 ml/Amino Acids/Dextrose/ Purified Water 1,647.5 ml @ 68 mls/hr [id number] IV 04/06/25 22:00 04/07/25 21:59 04/06/25 21:51 68 MLS/HR Fat Emulsion Intravenous 100 ml/Sodium Chloride 60 meq/ Potassium Phosphate 22 meq/ Calcium Gluconate 4.65 meq/ Magnesium Sulfate 8 meq/ Multivitamins 10 ml/Chromium/ Copper/Manganese/ Zinc 1 ml/Amino Acids/Dextrose/ Purified Water 1,643 ml @ 68 mls/hr [id number] IV 04/07/25 22:00 04/08/25 21:59 laboratory and microbiology Laboratory Tests 04/07/25 03:40 Test 04/07/25 03:40 Range/Units Serum Glucose 373 #H 74-106 mg/dL Problem List/Assessment/Plan Problem List/Assessment/Plan 04/04/25 doing well, wound clean and well approximated, dran with sero sanguineous drainage, t tube draining clear bile, he is feeling "much better" and is hungry. labs reviewed. will dc ngt and start po intake 04/05/25 MARKEDLY IMPROVED, ABDOMEN NON DISTENDED APPROPRIATELY TENDER, T TUBE WITH CLEAR BILE, KWAN DRAIN SEROSANGUINEOUS WILL ADVANCE PO INTAKE, NEEDS PHYSICAL THERAPY 04/07/25 patient in MRI for brain study, chart reviewed, essentially unchanged, amylase normal, the defect noted by radiologist on the operative cholangiogram is most likely cast by the T tube . 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 based on severe wt loss 35lb/24% in 5 month, intake <50% estimated requirement x 5 days, severe muscle wasting and fat depletion Nutrition Recommendation: 1) PPN/TPN if NPO continues 2) Advance to soft diet as medically feasible 3) Ensure Enlive 240ml TID if pt resumes PO diet 4) Monitor NPO status, lab values, weight trend, and I/O Expected Outcomes/Goals: Intake to meet >75% estimated needs GI symptoms to improve Fu 2-3 days Food and Nutrition Intake (Sev: <50% est energy req 5days Interpretation of weight loss: >10% in 6 months Body Fat Depletion (Severe): Mod to Severe Depletion Muscle Mass (Severe): Mod to Severe Depletion Protein Calorie Malnutrition: Severe Is there a minimum of two crit: Yes LOBO BOSWELL MD Apr 07, 2025 11:22
--- NOTE | 2025-04-07 11:27 | DVH ---
EXAMINATION: MRI BRAIN HEAD WO CONTRAST INDICATION: New right hemiplegia COMPARISON: MRI BRAIN HEAD WO CONTRAST on DOS: 03/16/25. TECHNIQUE: Multiplanar, multisequence magnetic resonance imaging of the brain was performed without the use of intravenous contrast. FINDINGS: There is persistent although diminished hyperintensity on the diffusion-weighted sequence in the right medial parieto-occipital lobe and left lopes radiata compatible with recent infarcts. Previously seen restricted diffusion in the left occipital lobe has resolved. No evidence of new restricted diffusion to suggest new infarct since prior MRI from 03/17/2025. No intracranial hemorrhage. No mass effect. There is periventricular/deep white matter T2/FLAIR hyperintensity is nonspecific, but most commonly associated with chronic microvascular disease. The ventricles and sulci are normal in size for age. Clear basal cisterns. Flow voids in the major intracranial vessels are maintained. No abnormality of the orbits. There is a mucous retention cysts in the right maxillary sinus. There is trace fluid in the bilateral mastoid air cells. No abnormality of the visualized osseous structures and extracranial soft tissues. IMPRESSION: 1. No acute infarct, intracranial hemorrhage, mass effect, or hydrocephalus. 2. Persistent although diminished hyperintensity on the diffusion-weighted sequence in the right medial parieto-occipital lobe and left lopes radiata compatible with recent infarcts.
[2025-04-07] MEDS: LACTATED RINGER'S 1,000 ML IV SCH (13:43)
--- NOTE | 2025-04-07 15:07 | DVHPN2 ---
Progress Note - Dictate Date Seen: Apr 06, 2025 Medical Necessity Reason Pt with a Central, PICC or Fol: Yes The following are medically ne: PICC Line, Barrios Catheter vital signs Vital Sign Date Time Temp Pulse Resp B/P (MAP) Pulse Ox O2 Delivery O2 Flow Rate FiO2 04/07/25 12:00 104 04/07/25 12:00 19 96 Room Air* 0 21 04/07/25 12:00 97.8 138/91 (107) 97.8 Total Intake and Output 04/06/25 04/06/25 04/07/25 15:00 23:00 07:00 Intake Total 1844.2 ml 2152 ml 794 ml Output Total 1455 ml 740 ml Balance 1844.2 ml 697 ml 54 ml medications Current Medications Medications Dose Ordered Sig/Wally Route Start Time Stop Time Status Last Admin Dose Admin Diagnostic Test (Pha) 1 strip Q6HR 03/16/25 18:00 04/07/25 11:39 1 STRIP Insulin Human Regular FOLLOW SLIDING SCALE Q6HR SC 03/16/25 18:00 04/07/25 06:06 2 UNITS Dextrose 50 ml UD IV 03/16/25 17:15 Folic Acid 1 mg/ Dextrose 50.2 ml @ 200.8 mls/ hr DAILY INJ 03/17/25 10:00 04/07/25 10:24 200.8 MLS/HR Thiamine HCl 100 mg DAILY IV 03/18/25 10:00 04/07/25 10:25 100 MG Atorvastatin Calcium 40 mg HS PO 03/17/25 22:00 Hold Sucralfate 1 gm QID@0600,1130,1700,2200 GT 03/23/25 17:00 04/07/25 11:39 1 GM Pantoprazole Sodium 40 mg BID IV 03/26/25 22:00 04/07/25 10:25 40 MG Levalbuterol HCl 0.625 mg Q6HR NEB 03/28/25 12:00 04/07/25 11:42 0.625 MG Nicotine 1 patch DAILY TD 03/29/25 10:00 04/07/25 10:25 1 PATCH Lorazepam 0.5 mg [id number] PRN IV 03/28/25 19:30 04/07/25 04:09 0.5 MG Clonidine HCl 0.2 mg TID PO 03/29/25 14:00 Hold 04/02/25 14:57 0.2 MG Losartan Potassium 100 mg DAILY PO 03/30/25 10:00 04/07/25 10:25 100 MG Ceftriaxone Sodium 50 ml @ 100 mls/hr DAILY@09 IV 04/04/25 09:00 04/07/25 08:52 100 MLS/HR Metronidazole 100 ml @ 100 mls/hr Q8HR IV 04/03/25 14:00 04/07/25 13:43 100 MLS/HR Ondansetron HCl 4 mg Q4HPRN PRN IV 04/03/25 10:00 Amino Acids 0 ml @ 0 mls/hr PER PHARMACY IV 04/03/25 10:00 Labetalol HCl 5 mg Q4HP PRN IV 04/03/25 11:30 04/05/25 21:14 5 MG Hydromorphone HCl 0.5 mg Q4HPRN PRN IV 04/03/25 11:30 04/07/25 06:17 0.5 MG Lidocaine HCl 0.5 ml ONCE PRN ID 04/03/25 16:45 04/03/25 17:30 0.5 ML Sodium Chloride 10 ml QSHIFT@10,22 IV 04/03/25 22:00 04/07/25 10:25 10 ML Enteral Nutritional Formula 240 ml TIDWM PO 04/06/25 08:00 04/07/25 08:00 240 ML Fat Emulsion Intravenous 100 ml/Sodium Chloride 40 meq/ Potassium Chloride 20 meq/ Potassium Phosphate 22 meq/ Calcium Gluconate 4.65 meq/ Magnesium Sulfate 6 meq/ Multivitamins 10 ml/Chromium/ Copper/Manganese/ Zinc 1 ml/Amino Acids/Dextrose/ Purified Water 1,647.5 ml @ 68 mls/hr [id number] IV 04/06/25 22:00 04/07/25 21:59 04/06/25 21:51 68 MLS/HR Fat Emulsion Intravenous 100 ml/Sodium Chloride 60 meq/ Potassium Phosphate 22 meq/ Calcium Gluconate 4.65 meq/ Magnesium Sulfate 8 meq/ Multivitamins 10 ml/Chromium/ Copper/Manganese/ Zinc 1 ml/Amino Acids/Dextrose/ Purified Water 1,643 ml @ 68 mls/hr [id number] IV 04/07/25 22:00 04/08/25 21:59 Lactated Ringer's 1,000 ml @ 75 mls/hr [id number] IV 04/07/25 13:00 04/07/25 13:43 75 MLS/HR laboratory and microbiology Laboratory Tests 04/07/25 03:40 Test 04/07/25 03:40 Range/Units Serum Glucose 373 #H 74-106 mg/dL Assessment/Plan Impression Acute hypoxemic respiratory failure Multiple strokes GI bleed Anemia GIOVANI Patient seen and examined Events S/p extubation Low oxygen requirements On 2 liters nasal cannula Continues to improve S/p cholecystectomy Labs and imaging reviewed Management Supplemental oxygen Titrate to maintain sats 90% or above Incentive spirometry Aspiration precautions Advance diet as tolerated Continue antibiotics F/u cultures Bronchodilators Monitor renal function Monitor electrolytes Supplement as needed Monitor hemoglobin F/u GI DVT prophylaxis Dietary Evaluation Review Recommendations by RD: Increase Calorie Intake, PPN/TPN Comments: Pt meets criteria 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 based on severe wt loss 35lb/24% in 5 month, intake <50% estimated requirement x 5 days, severe muscle wasting and fat depletion Nutrition Recommendation: 1) PPN/TPN if NPO continues 2) Advance to soft diet as medically feasible 3) Ensure Enlive 240ml TID if pt resumes PO diet 4) Monitor NPO status, lab values, weight trend, and I/O Expected Outcomes/Goals: Intake to meet >75% estimated needs GI symptoms to improve Fu 2-3 days Food and Nutrition Intake (Sev: <50% est energy req 5days Interpretation of weight loss: >10% in 6 months Body Fat Depletion (Severe): Mod to Severe Depletion Muscle Mass (Severe): Mod to Severe Depletion Protein Calorie Malnutrition: Severe Is there a minimum of two crit: Yes Plan discussed with: Patient CC Plasma Assessment Blood Product Administration S: [id number] VALENTE DEE MD Apr 07, 2025 15:07
--- NOTE | 2025-04-07 15:15 | DVHPN2 ---
Progress Note - Dictate Date Seen: Apr 07, 2025 Medical Necessity Reason Pt with a Central, PICC or Fol: Yes The following are medically ne: PICC Line, Barrios Catheter Subjective Patient is stable awake alert He is downgraded to the floor MRI of the brain was negative Surgical follow up appreciated Intraoperative cholangiogram showed filling defect Liver enzymes are trending down and alkaline phosphatase is down to 166 Underwent a open cholecystectomy with CBD exploration T-tube was then placed; patient had extensive inflammatory changes around the duodenal area No active GI bleeding reported, hemoglobin stable at 7.5 Hepatitis panel is negative and HIV is negative and ferritin is normal vital signs Vital Sign Date Time Temp Pulse Resp B/P (MAP) Pulse Ox O2 Delivery O2 Flow Rate FiO2 04/07/25 12:00 104 04/07/25 12:00 19 96 Room Air* 0 21 04/07/25 12:00 97.8 138/91 (107) 97.8 Total Intake and Output 04/06/25 04/06/25 04/07/25 15:00 23:00 07:00 Intake Total 1844.2 ml 2152 ml 794 ml Output Total 1455 ml 740 ml Balance 1844.2 ml 697 ml 54 ml medications Current Medications Medications Dose Ordered Sig/Wally Route Start Time Stop Time Status Last Admin Dose Admin Diagnostic Test (Pha) 1 strip Q6HR 03/16/25 18:00 04/07/25 11:39 1 STRIP Insulin Human Regular FOLLOW SLIDING SCALE Q6HR SC 03/16/25 18:00 04/07/25 06:06 2 UNITS Dextrose 50 ml UD IV 03/16/25 17:15 Folic Acid 1 mg/ Dextrose 50.2 ml @ 200.8 mls/ hr DAILY INJ 03/17/25 10:00 04/07/25 10:24 200.8 MLS/HR Thiamine HCl 100 mg DAILY IV 03/18/25 10:00 04/07/25 10:25 100 MG Atorvastatin Calcium 40 mg HS PO 03/17/25 22:00 Hold Sucralfate 1 gm QID@0600,1130,1700,2200 GT 03/23/25 17:00 04/07/25 11:39 1 GM Pantoprazole Sodium 40 mg BID IV 03/26/25 22:00 04/07/25 10:25 40 MG Levalbuterol HCl 0.625 mg Q6HR NEB 03/28/25 12:00 04/07/25 11:42 0.625 MG Nicotine 1 patch DAILY TD 03/29/25 10:00 04/07/25 10:25 1 PATCH Lorazepam 0.5 mg [id number] PRN IV 03/28/25 19:30 04/07/25 04:09 0.5 MG Clonidine HCl 0.2 mg TID PO 03/29/25 14:00 Hold 04/02/25 14:57 0.2 MG Losartan Potassium 100 mg DAILY PO 03/30/25 10:00 04/07/25 10:25 100 MG Ceftriaxone Sodium 50 ml @ 100 mls/hr DAILY@09 IV 04/04/25 09:00 04/07/25 08:52 100 MLS/HR Metronidazole 100 ml @ 100 mls/hr Q8HR IV 04/03/25 14:00 04/07/25 13:43 100 MLS/HR Ondansetron HCl 4 mg Q4HPRN PRN IV 04/03/25 10:00 Amino Acids 0 ml @ 0 mls/hr PER PHARMACY IV 04/03/25 10:00 Labetalol HCl 5 mg Q4HP PRN IV 04/03/25 11:30 04/05/25 21:14 5 MG Hydromorphone HCl 0.5 mg Q4HPRN PRN IV 04/03/25 11:30 04/07/25 06:17 0.5 MG Lidocaine HCl 0.5 ml ONCE PRN ID 04/03/25 16:45 04/03/25 17:30 0.5 ML Sodium Chloride 10 ml QSHIFT@10,22 IV 04/03/25 22:00 04/07/25 10:25 10 ML Enteral Nutritional Formula 240 ml TIDWM PO 04/06/25 08:00 04/07/25 08:00 240 ML Fat Emulsion Intravenous 100 ml/Sodium Chloride 40 meq/ Potassium Chloride 20 meq/ Potassium Phosphate 22 meq/ Calcium Gluconate 4.65 meq/ Magnesium Sulfate 6 meq/ Multivitamins 10 ml/Chromium/ Copper/Manganese/ Zinc 1 ml/Amino Acids/Dextrose/ Purified Water 1,647.5 ml @ 68 mls/hr [id number] IV 04/06/25 22:00 04/07/25 21:59 04/06/25 21:51 68 MLS/HR Fat Emulsion Intravenous 100 ml/Sodium Chloride 60 meq/ Potassium Phosphate 22 meq/ Calcium Gluconate 4.65 meq/ Magnesium Sulfate 8 meq/ Multivitamins 10 ml/Chromium/ Copper/Manganese/ Zinc 1 ml/Amino Acids/Dextrose/ Purified Water 1,643 ml @ 68 mls/hr [id number] IV 04/07/25 22:00 04/08/25 21:59 Lactated Ringer's 1,000 ml @ 75 mls/hr [id number] IV 04/07/25 13:00 04/07/25 13:43 75 MLS/HR objective General-cachectic male HEENT-normocephalic, no icterus, no pallor, neck supple Respiratory-fair air entry bilateral, no rhonchi, no wheeze [id number] heard, no murmurs appreciated Abdominal-soft, nontender, nondistended Musculoskeletal-no pedal edema, no calf tenderness Genitourinary-deferred Neuro-awake alert oriented x3, Psychiatric-not agitated, cooperative, laboratory and microbiology Laboratory Tests 04/07/25 03:40 Test 04/07/25 03:40 Range/Units Serum Glucose 373 #H 74-106 mg/dL Problems(with codes): (1) Elevated liver function tests (2) Choledocholithiasis (3) TIA (transient ischemic attack) (4) C. 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 based on severe wt loss 35lb/24% in 5 month, intake <50% estimated requirement x 5 days, severe muscle wasting and fat depletion Nutrition Recommendation: 1) PPN/TPN if NPO continues 2) Advance to soft diet as medically feasible 3) Ensure Enlive 240ml TID if pt resumes PO diet 4) Monitor NPO status, lab values, weight trend, and I/O Expected Outcomes/Goals: Intake to meet >75% estimated needs GI symptoms to improve Fu 2-3 days Food and Nutrition Intake (Sev: <50% est energy req 5days Interpretation of weight loss: >10% in 6 months Body Fat Depletion (Severe): Mod to Severe Depletion Muscle Mass (Severe): Mod to Severe Depletion Protein Calorie Malnutrition: Severe Is there a minimum of two crit: Yes Plan discussed with: Patient CC Plasma Assessment Blood Product Administration S: [id number] GURJIT NOBLE MD Apr 07, 2025 15:15
--- NOTE | 2025-04-07 15:18 | DVHPN2 ---
Progress Note - Dictate Date Seen: Apr 07, 2025 Medical Necessity Reason Pt with a Central, PICC or Fol: Yes The following are medically ne: PICC Line, Barrios Catheter vital signs Vital Sign Date Time Temp Pulse Resp B/P (MAP) Pulse Ox O2 Delivery O2 Flow Rate FiO2 04/07/25 12:00 104 04/07/25 12:00 19 96 Room Air* 0 21 04/07/25 12:00 97.8 138/91 (107) 97.8 Total Intake and Output 04/06/25 04/06/25 04/07/25 15:00 23:00 07:00 Intake Total 1844.2 ml 2152 ml 794 ml Output Total 1455 ml 740 ml Balance 1844.2 ml 697 ml 54 ml medications Current Medications Medications Dose Ordered Sig/Wally Route Start Time Stop Time Status Last Admin Dose Admin Diagnostic Test (Pha) 1 strip Q6HR 03/16/25 18:00 04/07/25 11:39 1 STRIP Insulin Human Regular FOLLOW SLIDING SCALE Q6HR SC 03/16/25 18:00 04/07/25 06:06 2 UNITS Dextrose 50 ml UD IV 03/16/25 17:15 Folic Acid 1 mg/ Dextrose 50.2 ml @ 200.8 mls/ hr DAILY INJ 03/17/25 10:00 04/07/25 10:24 200.8 MLS/HR Thiamine HCl 100 mg DAILY IV 03/18/25 10:00 04/07/25 10:25 100 MG Atorvastatin Calcium 40 mg HS PO 03/17/25 22:00 Hold Sucralfate 1 gm QID@0600,1130,1700,2200 GT 03/23/25 17:00 04/07/25 11:39 1 GM Pantoprazole Sodium 40 mg BID IV 03/26/25 22:00 04/07/25 10:25 40 MG Levalbuterol HCl 0.625 mg Q6HR NEB 03/28/25 12:00 04/07/25 11:42 0.625 MG Nicotine 1 patch DAILY TD 03/29/25 10:00 04/07/25 10:25 1 PATCH Lorazepam 0.5 mg [id number] PRN IV 03/28/25 19:30 04/07/25 04:09 0.5 MG Clonidine HCl 0.2 mg TID PO 03/29/25 14:00 Hold 04/02/25 14:57 0.2 MG Losartan Potassium 100 mg DAILY PO 03/30/25 10:00 04/07/25 10:25 100 MG Ceftriaxone Sodium 50 ml @ 100 mls/hr DAILY@09 IV 04/04/25 09:00 04/07/25 08:52 100 MLS/HR Metronidazole 100 ml @ 100 mls/hr Q8HR IV 04/03/25 14:00 04/07/25 13:43 100 MLS/HR Ondansetron HCl 4 mg Q4HPRN PRN IV 04/03/25 10:00 Amino Acids 0 ml @ 0 mls/hr PER PHARMACY IV 04/03/25 10:00 Labetalol HCl 5 mg Q4HP PRN IV 04/03/25 11:30 04/05/25 21:14 5 MG Hydromorphone HCl 0.5 mg Q4HPRN PRN IV 04/03/25 11:30 04/07/25 06:17 0.5 MG Lidocaine HCl 0.5 ml ONCE PRN ID 04/03/25 16:45 04/03/25 17:30 0.5 ML Sodium Chloride 10 ml QSHIFT@10,22 IV 04/03/25 22:00 04/07/25 10:25 10 ML Enteral Nutritional Formula 240 ml TIDWM PO 04/06/25 08:00 04/07/25 08:00 240 ML Fat Emulsion Intravenous 100 ml/Sodium Chloride 40 meq/ Potassium Chloride 20 meq/ Potassium Phosphate 22 meq/ Calcium Gluconate 4.65 meq/ Magnesium Sulfate 6 meq/ Multivitamins 10 ml/Chromium/ Copper/Manganese/ Zinc 1 ml/Amino Acids/Dextrose/ Purified Water 1,647.5 ml @ 68 mls/hr [id number] IV 04/06/25 22:00 04/07/25 21:59 04/06/25 21:51 68 MLS/HR Fat Emulsion Intravenous 100 ml/Sodium Chloride 60 meq/ Potassium Phosphate 22 meq/ Calcium Gluconate 4.65 meq/ Magnesium Sulfate 8 meq/ Multivitamins 10 ml/Chromium/ Copper/Manganese/ Zinc 1 ml/Amino Acids/Dextrose/ Purified Water 1,643 ml @ 68 mls/hr [id number] IV 04/07/25 22:00 04/08/25 21:59 Lactated Ringer's 1,000 ml @ 75 mls/hr [id number] IV 04/07/25 13:00 04/07/25 13:43 75 MLS/HR laboratory and microbiology Laboratory Tests 04/07/25 03:40 Test 04/07/25 03:40 Range/Units Serum Glucose 373 #H 74-106 mg/dL Assessment/Plan Impression Acute hypoxemic respiratory failure Multiple strokes GI bleed Anemia GIOVANI Patient seen and examined Events S/p extubation Low oxygen requirements On 2 liters nasal cannula Appears weak and deconditioned S/p cholecystectomy Labs and imaging reviewed Management Supplemental oxygen Titrate to maintain sats 90% or above Incentive spirometry Aspiration precautions Advance diet as tolerated Continue antibiotics F/u cultures Bronchodilators Monitor renal function Monitor electrolytes Supplement as needed Monitor hemoglobin F/u GI DVT prophylaxis Dietary Evaluation Review Recommendations by RD: Increase Calorie Intake, PPN/TPN Comments: Pt meets criteria 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 based on severe wt loss 35lb/24% in 5 month, intake <50% estimated requirement x 5 days, severe muscle wasting and fat depletion Nutrition Recommendation: 1) PPN/TPN if NPO continues 2) Advance to soft diet as medically feasible 3) Ensure Enlive 240ml TID if pt resumes PO diet 4) Monitor NPO status, lab values, weight trend, and I/O Expected Outcomes/Goals: Intake to meet >75% estimated needs GI symptoms to improve Fu 2-3 days Food and Nutrition Intake (Sev: <50% est energy req 5days Interpretation of weight loss: >10% in 6 months Body Fat Depletion (Severe): Mod to Severe Depletion Muscle Mass (Severe): Mod to Severe Depletion Protein Calorie Malnutrition: Severe Is there a minimum of two crit: Yes Plan discussed with: Patient CC Plasma Assessment Blood Product Administration S: [id number] VALENTE DEE MD Apr 07, 2025 15:18
--- NOTE | 2025-04-07 15:19 | DVHPN2 ---
Progress Note - Dictate Date Seen: Apr 06, 2025 Medical Necessity Reason Pt with a Central, PICC or Fol: Yes The following are medically ne: PICC Line, Barrios Catheter vital signs Vital Sign Date Time Temp Pulse Resp B/P (MAP) Pulse Ox O2 Delivery O2 Flow Rate FiO2 04/07/25 12:00 104 04/07/25 12:00 19 96 Room Air* 0 21 04/07/25 12:00 97.8 138/91 (107) 97.8 Total Intake and Output 04/06/25 04/06/25 04/07/25 15:00 23:00 07:00 Intake Total 1844.2 ml 2152 ml 794 ml Output Total 1455 ml 740 ml Balance 1844.2 ml 697 ml 54 ml medications Current Medications Medications Dose Ordered Sig/Wally Route Start Time Stop Time Status Last Admin Dose Admin Diagnostic Test (Pha) 1 strip Q6HR 03/16/25 18:00 04/07/25 11:39 1 STRIP Insulin Human Regular FOLLOW SLIDING SCALE Q6HR SC 03/16/25 18:00 04/07/25 06:06 2 UNITS Dextrose 50 ml UD IV 03/16/25 17:15 Folic Acid 1 mg/ Dextrose 50.2 ml @ 200.8 mls/ hr DAILY INJ 03/17/25 10:00 04/07/25 10:24 200.8 MLS/HR Thiamine HCl 100 mg DAILY IV 03/18/25 10:00 04/07/25 10:25 100 MG Atorvastatin Calcium 40 mg HS PO 03/17/25 22:00 Hold Sucralfate 1 gm QID@0600,1130,1700,2200 GT 03/23/25 17:00 04/07/25 11:39 1 GM Pantoprazole Sodium 40 mg BID IV 03/26/25 22:00 04/07/25 10:25 40 MG Levalbuterol HCl 0.625 mg Q6HR NEB 03/28/25 12:00 04/07/25 11:42 0.625 MG Nicotine 1 patch DAILY TD 03/29/25 10:00 04/07/25 10:25 1 PATCH Lorazepam 0.5 mg [id number] PRN IV 03/28/25 19:30 04/07/25 04:09 0.5 MG Clonidine HCl 0.2 mg TID PO 03/29/25 14:00 Hold 04/02/25 14:57 0.2 MG Losartan Potassium 100 mg DAILY PO 03/30/25 10:00 04/07/25 10:25 100 MG Ceftriaxone Sodium 50 ml @ 100 mls/hr DAILY@09 IV 04/04/25 09:00 04/07/25 08:52 100 MLS/HR Metronidazole 100 ml @ 100 mls/hr Q8HR IV 04/03/25 14:00 04/07/25 13:43 100 MLS/HR Ondansetron HCl 4 mg Q4HPRN PRN IV 04/03/25 10:00 Amino Acids 0 ml @ 0 mls/hr PER PHARMACY IV 04/03/25 10:00 Labetalol HCl 5 mg Q4HP PRN IV 04/03/25 11:30 04/05/25 21:14 5 MG Hydromorphone HCl 0.5 mg Q4HPRN PRN IV 04/03/25 11:30 04/07/25 06:17 0.5 MG Lidocaine HCl 0.5 ml ONCE PRN ID 04/03/25 16:45 04/03/25 17:30 0.5 ML Sodium Chloride 10 ml QSHIFT@10,22 IV 04/03/25 22:00 04/07/25 10:25 10 ML Enteral Nutritional Formula 240 ml TIDWM PO 04/06/25 08:00 04/07/25 08:00 240 ML Fat Emulsion Intravenous 100 ml/Sodium Chloride 40 meq/ Potassium Chloride 20 meq/ Potassium Phosphate 22 meq/ Calcium Gluconate 4.65 meq/ Magnesium Sulfate 6 meq/ Multivitamins 10 ml/Chromium/ Copper/Manganese/ Zinc 1 ml/Amino Acids/Dextrose/ Purified Water 1,647.5 ml @ 68 mls/hr [id number] IV 04/06/25 22:00 04/07/25 21:59 04/06/25 21:51 68 MLS/HR Fat Emulsion Intravenous 100 ml/Sodium Chloride 60 meq/ Potassium Phosphate 22 meq/ Calcium Gluconate 4.65 meq/ Magnesium Sulfate 8 meq/ Multivitamins 10 ml/Chromium/ Copper/Manganese/ Zinc 1 ml/Amino Acids/Dextrose/ Purified Water 1,643 ml @ 68 mls/hr [id number] IV 04/07/25 22:00 04/08/25 21:59 Lactated Ringer's 1,000 ml @ 75 mls/hr [id number] IV 04/07/25 13:00 04/07/25 13:43 75 MLS/HR laboratory and microbiology Laboratory Tests 04/07/25 03:40 Test 04/07/25 03:40 Range/Units Serum Glucose 373 #H 74-106 mg/dL Assessment/Plan Impression Acute hypoxemic respiratory failure Multiple strokes GI bleed Anemia GIOVANI Patient seen and examined Events S/p extubation Low oxygen requirements On 2 liters nasal cannula Appears weak and deconditioned S/p cholecystectomy Labs and imaging reviewed Management Supplemental oxygen Titrate to maintain sats 90% or above Incentive spirometry Aspiration precautions Advance diet as tolerated Continue antibiotics F/u cultures Bronchodilators Monitor renal function Monitor electrolytes Supplement as needed Monitor hemoglobin F/u GI DVT prophylaxis Dietary Evaluation Review Recommendations by RD: Increase Calorie Intake, PPN/TPN Comments: Pt meets criteria 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 based on severe wt loss 35lb/24% in 5 month, intake <50% estimated requirement x 5 days, severe muscle wasting and fat depletion Nutrition Recommendation: 1) PPN/TPN if NPO continues 2) Advance to soft diet as medically feasible 3) Ensure Enlive 240ml TID if pt resumes PO diet 4) Monitor NPO status, lab values, weight trend, and I/O Expected Outcomes/Goals: Intake to meet >75% estimated needs GI symptoms to improve Fu 2-3 days Food and Nutrition Intake (Sev: <50% est energy req 5days Interpretation of weight loss: >10% in 6 months Body Fat Depletion (Severe): Mod to Severe Depletion Muscle Mass (Severe): Mod to Severe Depletion Protein Calorie Malnutrition: Severe Is there a minimum of two crit: Yes Plan discussed with: Patient CC Plasma Assessment Blood Product Administration S: [id number] VALENTE DEE MD Apr 07, 2025 15:19
--- NOTE | 2025-04-07 17:18 | DVHPNRES ---
Progress Note Date Seen: Apr 07, 2025 Resident Creating Document: MABEL HERRERA RESIDENT Medical Necessity Reason Pt with a Central, PICC or Fol: Yes The following are medically ne: PICC Line, Barrios Catheter Subjective Review of Systems Patient seen and examined at bedside No acute complaints Objective vital signs Vital Sign Date Time Temp Pulse Resp B/P (MAP) Pulse Ox O2 Delivery O2 Flow Rate FiO2 04/07/25 16:33 97.8 104 18 126/88 (101) 98 97.8 04/07/25 16:00 Room Air* 0 21 Total Intake and Output 04/06/25 04/06/25 04/07/25 15:00 23:00 07:00 Intake Total 1844.2 ml 2152 ml 794 ml Output Total 1455 ml 740 ml Balance 1844.2 ml 697 ml 54 ml medications Current Medications Medications Dose Ordered Sig/Wally Route Start Time Stop Time Status Last Admin Dose Admin Diagnostic Test (Pha) 1 strip Q6HR 03/16/25 18:00 04/07/25 11:39 1 STRIP Insulin Human Regular FOLLOW SLIDING SCALE Q6HR SC 03/16/25 18:00 04/07/25 06:06 2 UNITS Dextrose 50 ml UD IV 03/16/25 17:15 Folic Acid 1 mg/ Dextrose 50.2 ml @ 200.8 mls/ hr DAILY INJ 03/17/25 10:00 04/07/25 10:24 200.8 MLS/HR Thiamine HCl 100 mg DAILY IV 03/18/25 10:00 04/07/25 10:25 100 MG Atorvastatin Calcium 40 mg HS PO 03/17/25 22:00 Hold Sucralfate 1 gm QID@0600,1130,1700,2200 GT 03/23/25 17:00 04/07/25 11:39 1 GM Pantoprazole Sodium 40 mg BID IV 03/26/25 22:00 04/07/25 10:25 40 MG Levalbuterol HCl 0.625 mg Q6HR NEB 03/28/25 12:00 04/07/25 11:42 0.625 MG Nicotine 1 patch DAILY TD 03/29/25 10:00 04/07/25 10:25 1 PATCH Lorazepam 0.5 mg [id number] PRN IV 03/28/25 19:30 04/07/25 04:09 0.5 MG Clonidine HCl 0.2 mg TID PO 03/29/25 14:00 Hold 04/02/25 14:57 0.2 MG Losartan Potassium 100 mg DAILY PO 03/30/25 10:00 04/07/25 10:25 100 MG Ceftriaxone Sodium 50 ml @ 100 mls/hr DAILY@09 IV 04/04/25 09:00 04/07/25 08:52 100 MLS/HR Metronidazole 100 ml @ 100 mls/hr Q8HR IV 04/03/25 14:00 04/07/25 13:43 100 MLS/HR Ondansetron HCl 4 mg Q4HPRN PRN IV 04/03/25 10:00 Amino Acids 0 ml @ 0 mls/hr PER PHARMACY IV 04/03/25 10:00 Labetalol HCl 5 mg Q4HP PRN IV 04/03/25 11:30 04/05/25 21:14 5 MG Hydromorphone HCl 0.5 mg Q4HPRN PRN IV 04/03/25 11:30 04/07/25 06:17 0.5 MG Lidocaine HCl 0.5 ml ONCE PRN ID 04/03/25 16:45 04/03/25 17:30 0.5 ML Sodium Chloride 10 ml QSHIFT@10,22 IV 04/03/25 22:00 04/07/25 10:25 10 ML Enteral Nutritional Formula 240 ml TIDWM PO 04/06/25 08:00 04/07/25 08:00 240 ML Fat Emulsion Intravenous 100 ml/Sodium Chloride 40 meq/ Potassium Chloride 20 meq/ Potassium Phosphate 22 meq/ Calcium Gluconate 4.65 meq/ Magnesium Sulfate 6 meq/ Multivitamins 10 ml/Chromium/ Copper/Manganese/ Zinc 1 ml/Amino Acids/Dextrose/ Purified Water 1,647.5 ml @ 68 mls/hr [id number] IV 04/06/25 22:00 04/07/25 21:59 04/06/25 21:51 68 MLS/HR Fat Emulsion Intravenous 100 ml/Sodium Chloride 60 meq/ Potassium Phosphate 22 meq/ Calcium Gluconate 4.65 meq/ Magnesium Sulfate 8 meq/ Multivitamins 10 ml/Chromium/ Copper/Manganese/ Zinc 1 ml/Amino Acids/Dextrose/ Purified Water 1,643 ml @ 68 mls/hr [id number] IV 04/07/25 22:00 04/08/25 21:59 Lactated Ringer's 1,000 ml @ 75 mls/hr [id number] IV 04/07/25 13:00 04/07/25 13:43 75 MLS/HR Examination General Appearance: Alert, Oriented X3 HEENT: Atraumatic, PERRLA, EOMI, Mucous membrane moist/pink Respiratory: Bilateral crackles. Cardiovascular: Regular rate, Normal S1, Normal S2, No murmurs, no chest wall tenderness Abdominal: Surgical wound with dressing on the right upper quadrant with 2 KWAN drain, mildly tender, No hepatosplenomegaly, No masses, decreased bowel sounds Extremities: PICC line on the rt upper arm, No clubbing, No cyanosis, No edema, Normal pulses, No tenderness/swelling Skin: No rashes, No breakdown, No significant lesion Neuro: Normal speech, right-sided weakness, Strength at 5/5 X2 ext, Normal tone, Sensation intact, grossly intact cranial nerves laboratory and microbiology Laboratory Tests 04/07/25 03:40 Test 04/07/25 03:40 Range/Units Serum Glucose 373 #H 74-106 mg/dL Microbiology Date/Time Source Procedure Growth Status 04/03/25 10:17 Gallbladder Gram Stain - Final Resulted 04/03/25 10:17 Gallbladder Anaerobic Culture - Preliminary Resulted 04/03/25 10:17 Aerobic Culture - Preliminary Enterococcus faecium - VRE Presumptive Milady albicans Resulted 03/16/25 16:06 Sputum Gram Stain - Final Complete 03/16/25 16:06 Respiratory Culture - Final Stenotrophomonas maltophilia Escherichia coli Presumptive Milady albicans Complete 03/13/25 11:53 Stool Stool Culture - Final Complete 03/13/25 11:53 Stool Shiga Toxin I & II - Final Complete 03/12/25 11:55 Urine - Barrios Port Urine Culture - Final Complete 03/11/25 15:36 Blood Blood Culture - Final NO GROWTH AFTER 5 DAYS OF INCUBATION. Complete Problem List/Assessment/Plan Problem List/Assessment/Plan NEURO: Acute metabolic encephalopathy secondary to acute ischemic stroke; resolved; able to make decisions; alert and oriented X3 Acute or subacute ischemic stroke Hypertensive emergency Acute anxiety - CT head without contrast demonstrated new medial right parieto-occipital focal region of diminished parenchymal attenuation within the medial right parietal occipital lobes. This is concerning for an acute to subacute infarct with chronic multifocal lacunar infarct - MRI showed Infarcts involving multiple vascular territories involved medial right occipital lobe, posterior left occipital lobe, and left lopes radiata white matter tracts. Few additional tiny foci of diffusion restriction at the anterior right parietal cortex. - Neurology on board - hold aspirin and Plavix for now because of GI bleeding - atorvastatin 40 mg p.o. daily - Clonidine 0.2 mg p.o.tid, losartan 100 mg daily and IV labetalol 5 mg q.2h PRN SBP>150 - IV Ativan 0.5 mg q.12 PRN CARDIOVASCULAR: Chronic diastolic heart failure with preserved ejection fraction - Echo on 11/12 demonstrated EF 65%, MILD LVH AND MILD LV DIASTOLIC DYSFUNCTION - elevated BNP - CXR showed Bilateral interstitial opacities, small left basilar consolidation and pleural effusion PULMONARY: Acute hypoxic respiratory failure; to continue oxygen therapy as indicated; currently room air S/P extubation GASTROINTESTINAL: 04/03/2025: S/P open cholecystectomy with common bile duct exploration with intrahepatic cholangiogram . Acute GI bleed upper vs lower Partial small Intestinal obstruction likely secondary to fecal impaction. Cholelithiasis C diff positive Elevated alkaline phosphatase -CT abdomen/pelvis showed low-grade distal partial obstruction due to fecal retention. - Gastrografin study showed Contrast is identified within the colon by 3 hours. No evidence of bowel obstruction. -EGD on 03/13/25 showed 1-2 cm sliding-type hiatal hernia with severe grade C linear erosive esophagitis with esophageal ulcers extending into the distal 15 cm of the esophagus persistent duodenal bulb ulcer seen just inside the pyloric opening which was large coalescing with a visible sutures; there was no active bleeding or visible vessel but there was acute on chronic inflammation deformity of the postbulbar duodenal area and but there was area of debris and ongoing chronic ulceration inflammation and the endoscope was not advanced beyond this area mild gastritis and some old coffee-ground within the stomach - GB U/S demonstrated gallbladder wall thickening and pericholecystic edema, concerning for cholecystitis and dilated CBD up to 16 mm. - MRCP scan demonstrated Choledocholithiasis in the mid to distal common bile duct predominantly dependently. - - full liquid diet - IV ceftriaxone 1 g daily and IV metronidazole 500 mg t.i.d. - TPN per pharmacy - IV Protonix 40 mg bid - Carafate suspension 1 g q.i.d. - Zofran 4 mg IV q.4 PRN - Monitor Hand H, transfuse if hemoglobin less than 7- 04/06/25: HR elevated, dehydrated, 2 bolus of LR 04/07/25: stable for downgrade. continue LR 75cc/h GENITOURINARY: GIOVANI on CKD likely hemodynamically mediated/VMN resolved - Monitor BMP METABOLIC: Hypernatremia Hypokalemia Hypophosphatemia - monitor BMP and replace/correct electrolytes as indicated HEME: Severe microcytic hypochromic anemia due to GI bleeding Iron deficiency due to above Bilateral superficial thrombophlebitis - Patient received 4 units of PRBCs - Monitor H&H INFECTIOUS DISEASE: Acute C diff infection - po vancomycin on hold because of upper GI bleeding Nicotine dependence - Nicotine dependence 21 g/24 hours DIET: TPN, NPO DVT prophylax: SCDs due to GI bleed GI prophylaxis: Protonix IV Bowel regimen: Code status: Full code; goals of care rediscussed with the patient and the patient's for 20 minutes; continues to be full code LINES/DRAINS/ACCESS: Extubated on 03/27/25 LINES: Rt PICC line Drips: TPN Barrios catheter DISPOSITION: ICU Patient's status discussed with RN, Critical care time spent: 90 minutes, including patient care, chart review, and updating the family. Excluding any procedures. Case discussed with Dr. Hale Plan discussed with: Patient, Other (rn) My Orders My Orders Orders - MABEL HERRERA RESIDENT Procedure Category Date Status Time Lactated Ringer's PHA 04/07/25 In Process 13:00 Transfer Orders XFER 04/07/25 Transmitted 11:54 Cleanse Wound With CINTHIA 04/07/25 In Process Wound Clean 11:22 Dietary Evaluation Review Recommendations by RD: Increase Calorie Intake, PPN/TPN Comments: Pt meets criteria 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 based on severe wt loss 35lb/24% in 5 month, intake <50% estimated requirement x 5 days, severe muscle wasting and fat depletion Nutrition Recommendation: 1) PPN/TPN if NPO continues 2) Advance to soft diet as medically feasible 3) Ensure Enlive 240ml TID if pt resumes PO diet 4) Monitor NPO status, lab values, weight trend, and I/O Expected Outcomes/Goals: Intake to meet >75% estimated needs GI symptoms to improve Fu 2-3 days Food and Nutrition Intake (Sev: <50% est energy req 5days Interpretation of weight loss: >10% in 6 months Body Fat Depletion (Severe): Mod to Severe Depletion Muscle Mass (Severe): Mod to Severe Depletion Protein Calorie Malnutrition: Severe Is there a minimum of two crit: Yes CC Plasma Assessment Blood Product Administration S: [id number] Date of Service: Apr 07, 2025 Billing Provider: JASE HALE DO Common Visit Codes: [id number] CARE 30-74 MIN MABEL HERRERA RESIDENT Apr 07, 2025 17:17 JASE HALE DO Apr 08, 2025 07:25
[2025-04-07] MEDS: ONDANSETRON HCL 4 MG/2 ML VIAL IV PRN (18:10)
[2025-04-07] MEDS: TPN PER PHARMACY IV NR (21:13)
[2025-04-08] VITALS (19 sets, daily range): BP systolic 129–149; BP diastolic 84–101; PULSE 104–120; RESP 16–20; TEMP 98.2–98.9; O2SAT 94–100
[2025-04-08 06:08] LABS: Hemoglobin 7.9 g/dL (13.5-17.5); Nucleated Red Blood Cells % 0.0 %
[2025-04-08 06:10] LABS: Hematocrit 24.1 % (41.0-53.0); Mean Corpuscular Hemoglobin 27.3 pg (28.0-32.0); Mean Corpuscular Volume 83.2 fL (80.0-100.0)
[2025-04-08 06:23] LABS: Alanine Aminotransferase 17 U/L (7-40); Anion Gap 9 (5-15); BUN/Creatinine Ratio 35.6 (10.0-20.0); Carbon Dioxide 26 mmol/L (20-31); Chloride 101 mmol/L (98-107); Magnesium 1.8 mg/dL (1.6-2.6); Potassium 3.7 mmol/L (3.5-5.1); Sodium 136 mmol/L (136-145); Total Protein 5.8 g/dL (5.7-8.2)
[2025-04-08 06:25] LABS: Albumin 2.5 g/dL (3.2-4.8); Alkaline Phosphatase 157 U/L (46-116); Bilirubin, Total 0.2 mg/dL (0.2-1.0); Blood Urea Nitrogen 32 mg/dL (9-23); Calcium 8.0 mg/dL (8.7-10.4); Glucose 107 mg/dL (74-106)
[2025-04-08 06:51] LABS: Anisocytosis Moderate
--- NOTE | 2025-04-08 08:57 | DVHPN2 ---
Progress Note - Dictate Date Seen: Apr 08, 2025 Medical Necessity Reason Pt with a Central, PICC or Fol: Yes The following are medically ne: PICC Line, Barrios Catheter vital signs Vital Sign Date Time Temp Pulse Resp B/P (MAP) Pulse Ox O2 Delivery O2 Flow Rate FiO2 04/08/25 08:36 98.2 111 20 149/101 (117) 99 98.2 04/08/25 07:42 Room Air 0.0 04/08/25 07:42 21 Total Intake and Output 04/07/25 04/07/25 04/08/25 15:00 23:00 07:00 Intake Total 690.8 ml 600 ml 500 ml Output Total 350 ml 1500 ml Balance 690.8 ml 250 ml -1000 ml medications Current Medications Medications Dose Ordered Sig/Wally Route Start Time Stop Time Status Last Admin Dose Admin Diagnostic Test (Pha) 1 strip Q6HR 03/16/25 18:00 04/08/25 06:17 1 STRIP Insulin Human Regular FOLLOW SLIDING SCALE Q6HR SC 03/16/25 18:00 04/08/25 06:17 2 UNITS Dextrose 50 ml UD IV 03/16/25 17:15 Folic Acid 1 mg/ Dextrose 50.2 ml @ 200.8 mls/ hr DAILY INJ 03/17/25 10:00 04/07/25 10:24 200.8 MLS/HR Thiamine HCl 100 mg DAILY IV 03/18/25 10:00 04/07/25 10:25 100 MG Atorvastatin Calcium 40 mg HS PO 03/17/25 22:00 Hold Sucralfate 1 gm QID@0600,1130,1700,2200 GT 03/23/25 17:00 04/08/25 06:10 1 GM Pantoprazole Sodium 40 mg BID IV 03/26/25 22:00 04/07/25 21:14 40 MG Levalbuterol HCl 0.625 mg Q6HR NEB 03/28/25 12:00 04/08/25 07:42 0.625 MG Nicotine 1 patch DAILY TD 03/29/25 10:00 04/07/25 10:25 1 PATCH Lorazepam 0.5 mg [id number] PRN IV 03/28/25 19:30 04/07/25 04:09 0.5 MG Clonidine HCl 0.2 mg TID PO 03/29/25 14:00 Hold 04/02/25 14:57 0.2 MG Losartan Potassium 100 mg DAILY PO 03/30/25 10:00 04/07/25 10:25 100 MG Ceftriaxone Sodium 50 ml @ 100 mls/hr DAILY@09 IV 04/04/25 09:00 04/07/25 08:52 100 MLS/HR Metronidazole 100 ml @ 100 mls/hr Q8HR IV 04/03/25 14:00 04/08/25 06:04 100 MLS/HR Ondansetron HCl 4 mg Q4HPRN PRN IV 04/03/25 10:00 04/07/25 18:10 4 MG Amino Acids 0 ml @ 0 mls/hr PER PHARMACY IV 04/03/25 10:00 Labetalol HCl 5 mg Q4HP PRN IV 04/03/25 11:30 04/05/25 21:14 5 MG Hydromorphone HCl 0.5 mg Q4HPRN PRN IV 04/03/25 11:30 04/07/25 18:11 0.5 MG Lidocaine HCl 0.5 ml ONCE PRN ID 04/03/25 16:45 04/03/25 17:30 0.5 ML Sodium Chloride 10 ml QSHIFT@10,22 IV 04/03/25 22:00 04/07/25 21:15 10 ML Enteral Nutritional Formula 240 ml TIDWM PO 04/06/25 08:00 04/07/25 18:34 240 ML Fat Emulsion Intravenous 100 ml/Sodium Chloride 60 meq/ Potassium Phosphate 22 meq/ Calcium Gluconate 4.65 meq/ Magnesium Sulfate 8 meq/ Multivitamins 10 ml/Chromium/ Copper/Manganese/ Zinc 1 ml/Amino Acids/Dextrose/ Purified Water 1,643 ml @ 68 mls/hr [id number] IV 04/07/25 22:00 04/08/25 21:59 04/07/25 21:13 68 MLS/HR Lactated Ringer's 1,000 ml @ 75 mls/hr [id number] IV 04/07/25 13:00 04/07/25 13:43 75 MLS/HR laboratory and microbiology Laboratory Tests 04/08/25 04:45 Test 04/08/25 04:45 Range/Units Serum Glucose 107 #H 74-106 mg/dL Assessment/Plan Impression Acute hypoxemic respiratory failure Multiple strokes GI bleed Anemia GIOVANI Patient seen and examined Events S/p d/grade Low oxygen requirements On 2 liters nasal cannula TPN S/p cholecystectomy Labs and imaging reviewed Management Supplemental oxygen Titrate to maintain sats 90% or above Incentive spirometry Aspiration precautions Continue antibiotics F/u cultures Bronchodilators Monitor renal function Monitor electrolytes Supplement as needed Monitor hemoglobin F/u GI DVT prophylaxis Dietary Evaluation Review Recommendations by RD: Increase Calorie Intake, PPN/TPN Comments: Pt meets criteria 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 based on severe wt loss 35lb/24% in 5 month, intake <50% estimated requirement x 5 days, severe muscle wasting and fat depletion Nutrition Recommendation: 1) PPN/TPN if NPO continues 2) Advance to soft diet as medically feasible 3) Ensure Enlive 240ml TID if pt resumes PO diet 4) Monitor NPO status, lab values, weight trend, and I/O Expected Outcomes/Goals: Intake to meet >75% estimated needs GI symptoms to improve Fu 2-3 days Food and Nutrition Intake (Sev: <50% est energy req 5days Interpretation of weight loss: >10% in 6 months Body Fat Depletion (Severe): Mod to Severe Depletion Muscle Mass (Severe): Mod to Severe Depletion Protein Calorie Malnutrition: Severe Is there a minimum of two crit: Yes Plan discussed with: Patient CC Plasma Assessment Blood Product Administration S: [id number] VALENTE DEE MD Apr 08, 2025 08:57
[2025-04-08] MEDS: LINEZOLID 600MG/300ML 300 ML IV SCH (11:17)
--- NOTE | 2025-04-08 11:59 | DVHPN2 ---
Subjective Date Seen: Apr 08, 2025 Post op day Post op day: 0 Patient reports: No new complaints Objective Vitals Vital Sign Date Time Temp Pulse Resp B/P (MAP) Pulse Ox O2 Delivery O2 Flow Rate FiO2 04/08/25 09:22 149/104 04/08/25 09:21 111 18 04/08/25 08:36 98.2 99 98.2 04/08/25 07:42 Nasal Cannula 0.0 04/08/25 07:42 21 Total Intake and Output 04/07/25 04/07/25 04/08/25 15:00 23:00 07:00 Intake Total 690.8 ml 600 ml 500 ml Output Total 350 ml 1500 ml Balance 690.8 ml 250 ml -1000 ml Medications Current Medications Medications Dose Ordered Sig/Wally Route Start Time Stop Time Status Last Admin Dose Admin Diagnostic Test (Pha) 1 strip Q6HR 03/16/25 18:00 04/08/25 11:46 1 STRIP Insulin Human Regular FOLLOW SLIDING SCALE Q6HR SC 03/16/25 18:00 04/08/25 11:51 2 UNITS Dextrose 50 ml UD IV 03/16/25 17:15 Folic Acid 1 mg/ Dextrose 50.2 ml @ 200.8 mls/ hr DAILY INJ 03/17/25 10:00 04/08/25 10:41 200.8 MLS/HR Thiamine HCl 100 mg DAILY IV 03/18/25 10:00 04/08/25 09:21 100 MG Atorvastatin Calcium 40 mg HS PO 03/17/25 22:00 Hold Sucralfate 1 gm QID@0600,1130,1700,2200 GT 03/23/25 17:00 04/08/25 10:39 1 GM Pantoprazole Sodium 40 mg BID IV 03/26/25 22:00 04/08/25 09:21 40 MG Levalbuterol HCl 0.625 mg Q6HR NEB 03/28/25 12:00 04/08/25 07:42 0.625 MG Nicotine 1 patch DAILY TD 03/29/25 10:00 04/08/25 09:23 1 PATCH Lorazepam 0.5 mg [id number] PRN IV 03/28/25 19:30 04/07/25 04:09 0.5 MG Clonidine HCl 0.2 mg TID PO 03/29/25 14:00 Hold 04/02/25 14:57 0.2 MG Losartan Potassium 100 mg DAILY PO 03/30/25 10:00 04/08/25 09:22 100 MG Ceftriaxone Sodium 50 ml @ 100 mls/hr DAILY@09 IV 04/04/25 09:00 04/08/25 09:24 100 MLS/HR Metronidazole 100 ml @ 100 mls/hr Q8HR IV 04/03/25 14:00 04/08/25 06:04 100 MLS/HR Ondansetron HCl 4 mg Q4HPRN PRN IV 04/03/25 10:00 04/07/25 18:10 4 MG Amino Acids 0 ml @ 0 mls/hr PER PHARMACY IV 04/03/25 10:00 Labetalol HCl 5 mg Q4HP PRN IV 04/03/25 11:30 04/05/25 21:14 5 MG Hydromorphone HCl 0.5 mg Q4HPRN PRN IV 04/03/25 11:30 04/08/25 09:21 0.5 MG Lidocaine HCl 0.5 ml ONCE PRN ID 04/03/25 16:45 04/03/25 17:30 0.5 ML Sodium Chloride 10 ml QSHIFT@10,22 IV 04/03/25 22:00 04/08/25 09:07 10 ML Enteral Nutritional Formula 240 ml TIDWM PO 04/06/25 08:00 04/08/25 09:06 240 ML Fat Emulsion Intravenous 100 ml/Sodium Chloride 60 meq/ Potassium Phosphate 22 meq/ Calcium Gluconate 4.65 meq/ Magnesium Sulfate 8 meq/ Multivitamins 10 ml/Chromium/ Copper/Manganese/ Zinc 1 ml/Amino Acids/Dextrose/ Purified Water 1,643 ml @ 68 mls/hr [id number] IV 04/07/25 22:00 04/08/25 21:59 04/07/25 21:13 68 MLS/HR Lactated Ringer's 1,000 ml @ 75 mls/hr [id number] IV 04/07/25 13:00 04/07/25 13:43 75 MLS/HR Linezolid 300 ml @ 150 mls/hr Q12H IV 04/08/25 11:00 04/08/25 11:17 150 MLS/HR Fat Emulsion Intravenous 150 ml/Sodium Chloride 50 meq/ Potassium Phosphate 22 meq/ Calcium Gluconate 2.3 meq/Magnesium Sulfate 16 meq/ Multivitamins 10 ml/Chromium/ Copper/Manganese/ Zinc 1 ml/Amino Acids/Dextrose 1,487.4462 ml @ 62 mls/hr Q24H IV 04/08/25 22:00 04/09/25 21:59 Labs and Microbiology Laboratory Tests 04/08/25 04:45 Test 04/08/25 04:45 Range/Units Serum Glucose 107 #H 74-106 mg/dL Ass/Plan Labs and/or images reviewed: Labs reviewed by me, Image(s) reviewed by me Problem List NEURO: Acute metabolic encephalopathy secondary to acute ischemic stroke; resolved; able to make decisions; alert and oriented X3 Acute or subacute ischemic stroke Hypertensive emergency Acute anxiety - CT head without contrast demonstrated new medial right parieto-occipital focal region of diminished parenchymal attenuation within the medial right parietal occipital lobes. This is concerning for an acute to subacute infarct with chronic multifocal lacunar infarct - MRI showed Infarcts involving multiple vascular territories involved medial right occipital lobe, posterior left occipital lobe, and left lopes radiata white matter tracts. Few additional tiny foci of diffusion restriction at the anterior right parietal cortex. - Neurology on board - hold aspirin and Plavix for now because of GI bleeding - atorvastatin 40 mg p.o. daily - Clonidine 0.2 mg p.o.tid, losartan 100 mg daily and IV labetalol 5 mg q.2h PRN SBP>150 - IV Ativan 0.5 mg q.12 PRN CARDIOVASCULAR: Chronic diastolic heart failure with preserved ejection fraction - Echo on 11/12 demonstrated EF 65%, MILD LVH AND MILD LV DIASTOLIC DYSFUNCTION - elevated BNP - CXR showed Bilateral interstitial opacities, small left basilar consolidation and pleural effusion PULMONARY: Acute hypoxic respiratory failure; to continue oxygen therapy as indicated; currently room air S/P extubation GASTROINTESTINAL: 04/03/2025: S/P open cholecystectomy with common bile duct exploration with intrahepatic cholangiogram . Acute GI bleed upper vs lower Partial small Intestinal obstruction likely secondary to fecal impaction. Cholelithiasis C diff positive Elevated alkaline phosphatase -CT abdomen/pelvis showed low-grade distal partial obstruction due to fecal retention. - Gastrografin study showed Contrast is identified within the colon by 3 hours. No evidence of bowel obstruction. -EGD on 03/13/25 showed 1-2 cm sliding-type hiatal hernia with severe grade C linear erosive esophagitis with esophageal ulcers extending into the distal 15 cm of the esophagus persistent duodenal bulb ulcer seen just inside the pyloric opening which was large coalescing with a visible sutures; there was no active bleeding or visible vessel but there was acute on chronic inflammation deformity of the postbulbar duodenal area and but there was area of debris and ongoing chronic ulceration inflammation and the endoscope was not advanced beyond this area mild gastritis and some old coffee-ground within the stomach - GB U/S demonstrated gallbladder wall thickening and pericholecystic edema, concerning for cholecystitis and dilated CBD up to 16 mm. - MRCP scan demonstrated Choledocholithiasis in the mid to distal common bile duct predominantly dependently. - - full liquid diet - IV ceftriaxone 1 g daily and IV metronidazole 500 mg t.i.d. - TPN per pharmacy - IV Protonix 40 mg bid - Carafate suspension 1 g q.i.d. - Zofran 4 mg IV q.4 PRN - Monitor Hand H, transfuse if hemoglobin less than 7- 04/06/25: HR elevated, dehydrated, 2 bolus of LR 04/07/25: stable for downgrade. continue LR 75cc/h GENITOURINARY: GIOVANI on CKD likely hemodynamically mediated/VMN resolved - Monitor BMP METABOLIC: Hypernatremia Hypokalemia Hypophosphatemia - monitor BMP and replace/correct electrolytes as indicated HEME: Severe microcytic hypochromic anemia due to GI bleeding Iron deficiency due to above Bilateral superficial thrombophlebitis - Patient received 4 units of PRBCs - Monitor H&H INFECTIOUS DISEASE: Acute C diff infection - po vancomycin on hold because of upper GI bleeding Nicotine dependence - Nicotine dependence 21 g/24 hours DIET: TPN, NPO DVT prophylax: SCDs due to GI bleed GI prophylaxis: Protonix IV Bowel regimen: Code status: Full code; goals of care rediscussed with the patient and the patient's for 20 minutes; continues to be full code LINES/DRAINS/ACCESS: Extubated on 03/27/25 LINES: Rt PICC line Drips: TPN Barrios catheter DISPOSITION: ICU Patient's status discussed with RN, Critical care time spent: 90 minutes, including patient care, chart review, and updating the family. Excluding any procedures. Case discussed with Dr. Andre Assessment/Plan s/p open cholecystectomy 04/06/25 abdomen soft, non distended wound clean dry and intact denies nausea or vomiting nellie drain serous sanguinous physical therapy Full liquid diet 04/08/25 no appetite abdomen soft, non distended wound clean dry and intact denies nausea or vomiting Plan: physical therapy Full liquid diet Plan discussed with Dr. Velasco, patient Visit Coding Surgery Date of Service if different f: Apr 08, 2025 Billing Provider: LOBO VELASCO MD Surgery Visit Codes: [id number] INP/OBS CARE(HIGH) YING SCRUGGS NP Apr 08, 2025 11:59
[2025-04-08] MEDS: POTASSIUM PHOSPHATE 22 MEQ in SODIUM CHL 0.9% 100 ML IV ONE (13:35)
--- NOTE | 2025-04-08 17:29 | DVHPN2 ---
Progress Note - Dictate Date Seen: Apr 08, 2025 Medical Necessity Reason Pt with a Central, PICC or Fol: Yes The following are medically ne: PICC Line, Barrios Catheter Subjective Patient is stable awake alert He is downgraded to the floor MRI of the brain was negative KWAN drain 10 mg, T-tube drain 50 mL Intraoperative cholangiogram showed filling defect Liver enzymes are trending down and alkaline phosphatase is down to 157 Underwent a open cholecystectomy with CBD exploration T-tube was then placed; patient had extensive inflammatory changes around the duodenal area No active GI bleeding reported, hemoglobin stable at 7.9 Hepatitis panel is negative and HIV is negative and ferritin is normal vital signs Vital Sign Date Time Temp Pulse Resp B/P (MAP) Pulse Ox O2 Delivery O2 Flow Rate FiO2 04/08/25 17:12 98.9 112 20 136/84 (101) 98 98.9 04/08/25 13:15 Room Air* 0 21 Total Intake and Output 04/07/25 04/07/25 04/08/25 15:00 23:00 07:00 Intake Total 690.8 ml 600 ml 500 ml Output Total 350 ml 1500 ml Balance 690.8 ml 250 ml -1000 ml medications Current Medications Medications Dose Ordered Sig/Wally Route Start Time Stop Time Status Last Admin Dose Admin Diagnostic Test (Pha) 1 strip Q6HR 03/16/25 18:00 04/08/25 11:46 1 STRIP Insulin Human Regular FOLLOW SLIDING SCALE Q6HR SC 03/16/25 18:00 04/08/25 11:51 2 UNITS Dextrose 50 ml UD IV 03/16/25 17:15 Folic Acid 1 mg/ Dextrose 50.2 ml @ 200.8 mls/ hr DAILY INJ 03/17/25 10:00 04/08/25 10:41 200.8 MLS/HR Thiamine HCl 100 mg DAILY IV 03/18/25 10:00 04/08/25 09:21 100 MG Atorvastatin Calcium 40 mg HS PO 03/17/25 22:00 Hold Sucralfate 1 gm QID@0600,1130,1700,2200 GT 03/23/25 17:00 04/08/25 10:39 1 GM Pantoprazole Sodium 40 mg BID IV 03/26/25 22:00 04/08/25 09:21 40 MG Levalbuterol HCl 0.625 mg Q6HR NEB 03/28/25 12:00 11/19/25 13:15 0.625 MG Nicotine 1 patch DAILY TD 03/29/25 10:00 04/08/25 09:23 1 PATCH Lorazepam 0.5 mg [id number] PRN IV 03/28/25 19:30 04/07/25 04:09 0.5 MG Clonidine HCl 0.2 mg TID PO 03/29/25 14:00 Hold 04/02/25 14:57 0.2 MG Losartan Potassium 100 mg DAILY PO 03/30/25 10:00 04/08/25 09:22 100 MG Ceftriaxone Sodium 50 ml @ 100 mls/hr DAILY@09 IV 04/04/25 09:00 04/08/25 09:24 100 MLS/HR Metronidazole 100 ml @ 100 mls/hr Q8HR IV 04/03/25 14:00 04/08/25 14:26 100 MLS/HR Ondansetron HCl 4 mg Q4HPRN PRN IV 04/03/25 10:00 04/07/25 18:10 4 MG Amino Acids 0 ml @ 0 mls/hr PER PHARMACY IV 04/03/25 10:00 Labetalol HCl 5 mg Q4HP PRN IV 04/03/25 11:30 04/05/25 21:14 5 MG Hydromorphone HCl 0.5 mg Q4HPRN PRN IV 04/03/25 11:30 04/08/25 09:21 0.5 MG Lidocaine HCl 0.5 ml ONCE PRN ID 04/03/25 16:45 04/03/25 17:30 0.5 ML Sodium Chloride 10 ml QSHIFT@10,22 IV 04/03/25 22:00 04/08/25 09:07 10 ML Enteral Nutritional Formula 240 ml TIDWM PO 04/06/25 08:00 04/08/25 09:06 240 ML Fat Emulsion Intravenous 100 ml/Sodium Chloride 60 meq/ Potassium Phosphate 22 meq/ Calcium Gluconate 4.65 meq/ Magnesium Sulfate 8 meq/ Multivitamins 10 ml/Chromium/ Copper/Manganese/ Zinc 1 ml/Amino Acids/Dextrose/ Purified Water 1,643 ml @ 68 mls/hr [id number] IV 04/07/25 22:00 04/08/25 21:59 04/07/25 21:13 68 MLS/HR Lactated Ringer's 1,000 ml @ 75 mls/hr [id number] IV 04/07/25 13:00 04/08/25 15:57 75 MLS/HR Linezolid 300 ml @ 150 mls/hr Q12H IV 04/08/25 11:00 04/08/25 11:17 150 MLS/HR Fat Emulsion Intravenous 150 ml/Sodium Chloride 50 meq/ Potassium Phosphate 22 meq/ Calcium Gluconate 2.3 meq/Magnesium Sulfate 16 meq/ Multivitamins 10 ml/Chromium/ Copper/Manganese/ Zinc 1 ml/Amino Acids/Dextrose 1,487.4462 ml @ 62 mls/hr Q24H IV 04/08/25 22:00 04/09/25 21:59 objective General-cachectic male HEENT-normocephalic, no icterus, no pallor, neck supple Respiratory-fair air entry bilateral, no rhonchi, no wheeze [id number] heard, no murmurs appreciated Abdominal-soft, nontender, nondistended Musculoskeletal-no pedal edema, no calf tenderness Genitourinary-deferred Neuro-awake alert oriented x3, Psychiatric-not agitated, cooperative, laboratory and microbiology Laboratory Tests 04/08/25 04:45 Test 04/08/25 04:45 Range/Units Serum Glucose 107 #H 74-106 mg/dL Problems(with codes): (1) Elevated liver function tests (2) Choledocholithiasis (3) Altered mental status (4) TIA (transient ischemic attack) (5) C. difficile colitis (6) Elevated liver enzymes (7) Gallstone (8) Duodenal ulcer disease Prognosis Plan Continue conservative management Patient is on IV fluids and IV antibiotics Continue IV Protonix Oral Carafate via the NG tube Advance diet as tolerated and taper off TPN Surgical consult following regarding T-tube cholangiogram Discharge planning to SNF Dietary Evaluation Review Recommendations by RD: Increase Calorie Intake, PPN/TPN Comments: Pt meets criteria 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 based on severe wt loss 35lb/24% in 5 month, intake <50% estimated requirement x 5 days, severe muscle wasting and fat depletion Nutrition Recommendation: 1) PPN/TPN if NPO continues 2) Advance to soft diet as medically feasible 3) Ensure Enlive 240ml TID if pt resumes PO diet 4) Monitor NPO status, lab values, weight trend, and I/O Expected Outcomes/Goals: Intake to meet >75% estimated needs GI symptoms to improve Fu 2-3 days Food and Nutrition Intake (Sev: <50% est energy req 5days Interpretation of weight loss: >10% in 6 months Body Fat Depletion (Severe): Mod to Severe Depletion Muscle Mass (Severe): Mod to Severe Depletion Protein Calorie Malnutrition: Severe Is there a minimum of two crit: Yes Plan discussed with: Patient CC Plasma Assessment Blood Product Administration S: [id number] GURJIT NOBLE MD Apr 08, 2025 17:29
--- NOTE | 2025-04-08 21:02 | DVHPNRES ---
Progress Note Date Seen: Apr 08, 2025 Resident Creating Document: MABEL HERRERA RESIDENT Medical Necessity Reason Pt with a Central, PICC or Fol: Yes The following are medically ne: PICC Line, Barrios Catheter Subjective Review of Systems Patient seen and examined at bedside No acute complaints Objective vital signs Vital Sign Date Time Temp Pulse Resp B/P (MAP) Pulse Ox O2 Delivery O2 Flow Rate FiO2 04/08/25 18:28 107 18 99 04/08/25 18:23 Room Air* 0 21 04/08/25 17:12 98.9 136/84 (101) 98.9 Total Intake and Output 04/07/25 04/07/25 04/08/25 15:00 23:00 07:00 Intake Total 690.8 ml 600 ml 500 ml Output Total 350 ml 1500 ml Balance 690.8 ml 250 ml -1000 ml medications Current Medications Medications Dose Ordered Sig/Wally Route Start Time Stop Time Status Last Admin Dose Admin Diagnostic Test (Pha) 1 strip Q6HR 03/16/25 18:00 04/08/25 17:50 1 STRIP Insulin Human Regular FOLLOW SLIDING SCALE Q6HR SC 03/16/25 18:00 04/08/25 18:11 2 UNITS Dextrose 50 ml UD IV 03/16/25 17:15 Folic Acid 1 mg/ Dextrose 50.2 ml @ 200.8 mls/ hr DAILY INJ 03/17/25 10:00 04/08/25 10:41 200.8 MLS/HR Thiamine HCl 100 mg DAILY IV 03/18/25 10:00 04/08/25 09:21 100 MG Atorvastatin Calcium 40 mg HS PO 03/17/25 22:00 Hold Sucralfate 1 gm QID@0600,1130,1700,2200 GT 03/23/25 17:00 04/08/25 17:35 1 GM Pantoprazole Sodium 40 mg BID IV 03/26/25 22:00 04/08/25 09:21 40 MG Levalbuterol HCl 0.625 mg Q6HR NEB 03/28/25 12:00 04/08/25 18:23 0.625 MG Nicotine 1 patch DAILY TD 03/29/25 10:00 04/08/25 09:23 1 PATCH Lorazepam 0.5 mg [id number] PRN IV 03/28/25 19:30 04/07/25 04:09 0.5 MG Clonidine HCl 0.2 mg TID PO 03/29/25 14:00 Hold 04/02/25 14:57 0.2 MG Losartan Potassium 100 mg DAILY PO 03/30/25 10:00 04/08/25 09:22 100 MG Ceftriaxone Sodium 50 ml @ 100 mls/hr DAILY@09 IV 04/04/25 09:00 04/08/25 09:24 100 MLS/HR Metronidazole 100 ml @ 100 mls/hr Q8HR IV 04/03/25 14:00 04/08/25 14:26 100 MLS/HR Ondansetron HCl 4 mg Q4HPRN PRN IV 04/03/25 10:00 04/07/25 18:10 4 MG Amino Acids 0 ml @ 0 mls/hr PER PHARMACY IV 04/03/25 10:00 Labetalol HCl 5 mg Q4HP PRN IV 04/03/25 11:30 04/05/25 21:14 5 MG Hydromorphone HCl 0.5 mg Q4HPRN PRN IV 04/03/25 11:30 04/08/25 09:21 0.5 MG Lidocaine HCl 0.5 ml ONCE PRN ID 04/03/25 16:45 04/03/25 17:30 0.5 ML Sodium Chloride 10 ml QSHIFT@10,22 IV 04/03/25 22:00 04/08/25 09:07 10 ML Enteral Nutritional Formula 240 ml TIDWM PO 04/06/25 08:00 04/08/25 18:34 240 ML Fat Emulsion Intravenous 100 ml/Sodium Chloride 60 meq/ Potassium Phosphate 22 meq/ Calcium Gluconate 4.65 meq/ Magnesium Sulfate 8 meq/ Multivitamins 10 ml/Chromium/ Copper/Manganese/ Zinc 1 ml/Amino Acids/Dextrose/ Purified Water 1,643 ml @ 68 mls/hr [id number] IV 04/07/25 22:00 04/08/25 21:59 04/07/25 21:13 68 MLS/HR Lactated Ringer's 1,000 ml @ 75 mls/hr [id number] IV 04/07/25 13:00 04/08/25 15:57 75 MLS/HR Linezolid 300 ml @ 150 mls/hr Q12H IV 04/08/25 11:00 04/08/25 11:17 150 MLS/HR Fat Emulsion Intravenous 150 ml/Sodium Chloride 50 meq/ Potassium Phosphate 22 meq/ Calcium Gluconate 2.3 meq/Magnesium Sulfate 16 meq/ Multivitamins 10 ml/Chromium/ Copper/Manganese/ Zinc 1 ml/Amino Acids/Dextrose 1,487.4462 ml @ 62 mls/hr Q24H IV 04/08/25 22:00 04/09/25 21:59 Examination General Appearance: Alert, Oriented X3 HEENT: Atraumatic, PERRLA, EOMI, Mucous membrane moist/pink Respiratory: Bilateral crackles. Cardiovascular: Regular rate, Normal S1, Normal S2, No murmurs, no chest wall tenderness Abdominal: Surgical wound with dressing on the right upper quadrant with 2 KWAN drain, mildly tender, No hepatosplenomegaly, No masses, decreased bowel sounds Extremities: PICC line on the rt upper arm, No clubbing, No cyanosis, No edema, Normal pulses, No tenderness/swelling Skin: No rashes, No breakdown, No significant lesion Neuro: Normal speech, right-sided weakness, Strength at 5/5 X2 ext, Normal tone, Sensation intact, grossly intact cranial nerves laboratory and microbiology Laboratory Tests 04/08/25 04:45 Test 04/08/25 04:45 Range/Units Serum Glucose 107 #H 74-106 mg/dL Microbiology Date/Time Source Procedure Growth Status 04/03/25 10:17 Gallbladder Gram Stain - Final Complete 04/03/25 10:17 Gallbladder Anaerobic Culture - Final Complete 04/03/25 10:17 Aerobic Culture - Final Enterococcus faecium - VRE Presumptive Milady albicans Complete 03/16/25 16:06 Sputum Gram Stain - Final Complete 03/16/25 16:06 Respiratory Culture - Final Stenotrophomonas maltophilia Escherichia coli Presumptive Milady albicans Complete 03/13/25 11:53 Stool Stool Culture - Final Complete 03/13/25 11:53 Stool Shiga Toxin I & II - Final Complete 03/12/25 11:55 Urine - Barrios Port Urine Culture - Final Complete 03/11/25 15:36 Blood Blood Culture - Final NO GROWTH AFTER 5 DAYS OF INCUBATION. Complete Problem List/Assessment/Plan Problem List/Assessment/Plan NEURO: Acute metabolic encephalopathy secondary to acute ischemic stroke; resolved; able to make decisions; alert and oriented X3 Acute or subacute ischemic stroke Hypertensive emergency Acute anxiety - CT head without contrast demonstrated new medial right parieto-occipital focal region of diminished parenchymal attenuation within the medial right parietal occipital lobes. This is concerning for an acute to subacute infarct with chronic multifocal lacunar infarct - MRI showed Infarcts involving multiple vascular territories involved medial right occipital lobe, posterior left occipital lobe, and left lopes radiata white matter tracts. Few additional tiny foci of diffusion restriction at the anterior right parietal cortex. - Neurology on board - hold aspirin and Plavix for now because of GI bleeding - atorvastatin 40 mg p.o. daily - Clonidine 0.2 mg p.o.tid, losartan 100 mg daily and IV labetalol 5 mg q.2h PRN SBP>150 - IV Ativan 0.5 mg q.12 PRN CARDIOVASCULAR: Chronic diastolic heart failure with preserved ejection fraction - Echo on 11/12 demonstrated EF 65%, MILD LVH AND MILD LV DIASTOLIC DYSFUNCTION - elevated BNP - CXR showed Bilateral interstitial opacities, small left basilar consolidation and pleural effusion PULMONARY: Acute hypoxic respiratory failure; to continue oxygen therapy as indicated; currently room air S/P extubation GASTROINTESTINAL: 04/03/2025: S/P open cholecystectomy with common bile duct exploration with intrahepatic cholangiogram . Acute GI bleed upper vs lower Partial small Intestinal obstruction likely secondary to fecal impaction. Cholelithiasis C diff positive Elevated alkaline phosphatase -CT abdomen/pelvis showed low-grade distal partial obstruction due to fecal retention. - Gastrografin study showed Contrast is identified within the colon by 3 hours. No evidence of bowel obstruction. -EGD on 03/13/25 showed 1-2 cm sliding-type hiatal hernia with severe grade C linear erosive esophagitis with esophageal ulcers extending into the distal 15 cm of the esophagus persistent duodenal bulb ulcer seen just inside the pyloric opening which was large coalescing with a visible sutures; there was no active bleeding or visible vessel but there was acute on chronic inflammation deformity of the postbulbar duodenal area and but there was area of debris and ongoing chronic ulceration inflammation and the endoscope was not advanced beyond this area mild gastritis and some old coffee-ground within the stomach - GB U/S demonstrated gallbladder wall thickening and pericholecystic edema, concerning for cholecystitis and dilated CBD up to 16 mm. - MRCP scan demonstrated Choledocholithiasis in the mid to distal common bile duct predominantly dependently. - - full liquid diet - IV ceftriaxone 1 g daily and IV metronidazole 500 mg t.i.d. - TPN per pharmacy - IV Protonix 40 mg bid - Carafate suspension 1 g q.i.d. - Zofran 4 mg IV q.4 PRN - Monitor Hand H, transfuse if hemoglobin less than 7- 04/06/25: HR elevated, dehydrated, 2 bolus of LR 04/07/25: stable for downgrade. continue LR 75cc/h 04/08/25: patient continues to have elevated wbc, elevated HR, we are adding zyvox to the treatment, new urine, blood and drain culture added. also PT suggested that recovery should be continue in SNF after DC, ordered placed GENITOURINARY: GIOVANI on CKD likely hemodynamically mediated/VMN resolved - Monitor BMP METABOLIC: Hypernatremia Hypokalemia Hypophosphatemia - monitor BMP and replace/correct electrolytes as indicated HEME: Severe microcytic hypochromic anemia due to GI bleeding Iron deficiency due to above Bilateral superficial thrombophlebitis - Patient received 4 units of PRBCs - Monitor H&H INFECTIOUS DISEASE: Acute C diff infection - po vancomycin on hold because of upper GI bleeding Nicotine dependence - Nicotine dependence 21 g/24 hours DIET: TPN, full liquid diet DVT prophylax: SCDs due to GI bleed GI prophylaxis: Protonix IV Bowel regimen: Code status: Full code; goals of care rediscussed with the patient and the patient's for 20 minutes; continues to be full code LINES/DRAINS/ACCESS: Extubated on 03/27/25 LINES: Rt PICC line Drips: TPN Barrios catheter DISPOSITION: ICU Patient's status discussed with RN, Time care time spent: 90 minutes, including patient care, chart review, and updating the family. Excluding any procedures. Case discussed with Dr. Medina Plan discussed with: Patient, Other (rn) My Orders My Orders Orders - MABEL HERRERA Procedure Category Date Status Time Linezolid 600mg/300ml PHA 04/08/25 In Process (Zyvox) 11:00 Turn And Position CINTHIA 04/08/25 In Process 13:47 * Wound Consult CONS 04/08/25 Transmitted * Nurse Wound Care CONS 04/08/25 Transmitted Consult Blood Culture HOLA 04/08/25 In Process 14:27 Urine Bacterial HOLA 04/08/25 Logged Culture 14:27 Urinalysis LAB 04/08/25 Logged 14:27 Routine Bacterial HOLA 04/08/25 Uncollected Culture 14:29 Communication Order ORDERS 04/08/25 Transmitted 14:29 Dietary Evaluation Review Recommendations by RD: Increase Calorie Intake, PPN/TPN Comments: Pt meets criteria 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 based on severe wt loss 35lb/24% in 5 month, intake <50% estimated requirement x 5 days, severe muscle wasting and fat depletion Nutrition Recommendation: 1) PPN/TPN if NPO continues 2) Advance to soft diet as medically feasible 3) Ensure Enlive 240ml TID if pt resumes PO diet 4) Monitor NPO status, lab values, weight trend, and I/O Expected Outcomes/Goals: Intake to meet >75% estimated needs GI symptoms to improve Fu 2-3 days Food and Nutrition Intake (Sev: <50% est energy req 5days Interpretation of weight loss: >10% in 6 months Body Fat Depletion (Severe): Mod to Severe Depletion Muscle Mass (Severe): Mod to Severe Depletion Protein Calorie Malnutrition: Severe Is there a minimum of two crit: Yes CC Plasma Assessment Blood Product Administration S: [id number] Date of Service: Apr 08, 2025 Billing Provider: CRISTA MEDINA MD Common Visit Codes: [id number] INP/OBS CARE(HIGH) MABEL HERRERA RESIDENT Apr 08, 2025 21:02 CRISTA MEDINA MD Apr 19, 2025 19:53
[2025-04-08] MEDS: TPN PER PHARMACY IV NR (22:16)
--- NOTE | 2025-04-08 23:51 | DVHPN2 ---
Progress Note - Dictate Date Seen: Apr 08, 2025 Medical Necessity Reason Pt with a Central, PICC or Fol: Yes The following are medically ne: PICC Line, Barrios Catheter Subjective Mr. Perez is a 49 years old right-handed gentleman with a history of hypertension, dyslipidemia, multiple strokes, DVT, he was brought to the [facility] on 03/11/2025 with a chief complaint of diarrhea, history is obtained from his , the chart review I saw him on 08/23/2023 for TIA, 10/27/2024 for encephalopathy I have seen and examined the patient, I have talked to his nurse, I have seen and examined the patient, I have talked to his nurse, better energy today,, oriented to person, place, he follows verbal commands, muscle power is stronger in the left arm, he can move both legs, but not right arm Stool occult blood, 03/13/2025, 03/29/2025: Positive UDS, 03/12/2025: Negative Plasma alcohol, 03/12/2025: <3 Urinalysis, 03/12/2025: WBC: One, urine leukocyte esterase: Negative ABG, 03/16/25: Hypoxia, respiratory acidosis WBC/Hb/PLT'/MCV, 03/16/25: 10.l 6/7.9/339/82.4 Na, 03/11/2025: 129, 03/12/2025: 130, 129, 03/15/25: 145, 03/16/25: 142 BUNs/CR, 08/22/2023: 15/1.45, 03/11/2025: 55/1.77, 03/13/2025: 43/1.58, 02/2725: 65/2.56 GFR, 08/22/2023: 59 TBI/AST/ALT/AP: 0.8/269/450/398 TG/CHO L/LDL/HDL, 08/2023: 136/166/111/39 Vitamin B12, 03/12/25: 852 Folic acid, 03/12/2025: 12.28 TSH, 08/23/2023: 4.25 Ultrasound, 03/24/2025: Gallbladder entirely distended with sludge with gallbladder wall thickening and pericholecystic edema, concerning for cholecystitis. Recommend surgical consultation HIDA scan. Dilated common bile duct measuring 16 mm which can be further evaluated with MRCP. Echogenic liver which can be seen with hepatic steatosis, cirrhosis. Right pleural effusion Extremity venous study, right arm, 11/09/2024: Thrombus is seen in the cephalic vein in the forearm. DONAL, 08/23/2023: 1. No evidence of intracardiac source of embolus in the study conducted today. 2. Normal valves without significant masses or change vegetations were discernible. 3. No evidence of intra-atrial shunting by bubble study and color Doppler. 4. Mild atherosclerotic plaquing was visualized in the arch of the aorta without evidence of dissection in the visualized part EGD, 03/13/2025: 1. 1-2 cm sliding-type hiatal hernia with severe grade C linear erosive esophagitis with esophageal ulcers extending into the distal 15 cm of the esophagus 2. Patient had a persistent duodenal bulb ulcer seen just inside the pyloric opening which was large coalescing with a visible sutures; there was no active bleeding or visible vessel but there was acute on chronic inflammation 3. Patient had deformity of the postbulbar duodenal area and I was able to see the 2nd part of the duodenum but there was area of debris and ongoing chronic ulceration inflammation and the endoscope was not advanced beyond this area 3. Patient had mild gastritis and some old coffee-ground within the stomach Chest x-ray, 03/12/2025: Mild chronic appearing left basilar pulmonary airspace disease and possible small pleural effusion Chest x-ray, 03/13/2025: 1. Enteric tube terminates in the stomach. 2. Worsening bilateral interstitial and alveolar opacities. Chest x-ray, : Endotracheal tube and right IJ approach central venous catheters are in satisfactory position. Trace ynez-[id number]-right pleural effusions with right retro lower lung zone linear atelectasis/ fluid within the fissure. CT head, 10/24/2024: 1. No intracranial hemorrhage or mass effect. 2. Thof-of-gjddrmsn chronic microvascular ischemic changes. 3. Old bilateral basal ganglia lacunar infarcts. 4. Small bilateral mastoid effusions. CT head, 03/17/2025: 1. New medial right parieto-occipital focal region of diminished parenchymal attenuation within the medial right parietal occipital lobes. This is concerning for an acute to subacute infarct. Recommend further evaluation with MRI. 2. No evidence of acute intracranial hemorrhage, mass effect or hydrocephalus. 3. Chronic sequelae of microangiopathy and atrophic cortical volume loss.4. Multifocal chronic lacunar infarcts as outlined above. CT abdomen/pelvis, 10/04/2024: 1. Extensive intra-abdominal free air concerning for perforated viscus. Surgical consultation is recommended. 2. Enteritis is seen in multiple loops of small bowel in the left hemiabdomen. 3. Moderate abdominopelvic ascites. 4. Small right pleural effusion. CTA neck, head, 08/22/2023:1. CTA head demonstrates no evidence of large vessel occlusion, aneurysm, or significant stenosis. 2. CTA neck demonstrates no evidence of carotid or vertebral dissection or significant stenosis. 3. No noncontrast CT head was performed. 4. Additional findings as detailed above MRI head, 08/23/2023: No acute infarct, intracranial hemorrhage, mass effect, or hydrocephalus. Moderate periventricular and deep subcortical white matter T2 hyperintensities which are nonspecific, but most likely related to sequela of chronic microvascular ischemic changes (I have reviewed the MRI films with our in-house radiologist, Dr. Black, the patient had bilateral multiple subacute/chronic infarcts) MRI head, 11/01/2024: No acute cerebrovascular ischemia. Vpja-br-cdlankng chronic microvascular ischemic changes. Bilateral mastoid effusions. Old bilateral basal ganglia / lopes radiata infarcts. MR head, 03/16/2025: Infarcts involving multiple vascular territories as described. MRI head, 04/07/2025: 1. No acute infarct, intracranial hemorrhage, mass effect, or hydrocephalus. 2. Persistent although diminished hyperintensity on the diffusion-weighted sequence in the right medial parieto-occipital lobe and left lopes radiata compatible with recent infarcts. vital signs Vital Sign Date Time Temp Pulse Resp B/P (MAP) Pulse Ox O2 Delivery O2 Flow Rate FiO2 04/08/25 23:31 107 18 100 04/08/25 23:25 Room Air 04/08/25 23:25 0 21 04/08/25 22:06 130/86 04/08/25 21:00 98.3 98.3 Total Intake and Output 04/07/25 04/07/25 04/08/25 15:00 23:00 07:00 Intake Total 690.8 ml 600 ml 500 ml Output Total 350 ml 1500 ml Balance 690.8 ml 250 ml -1000 ml medications Current Medications Medications Dose Ordered Sig/Wally Route Start Time Stop Time Status Last Admin Dose Admin Diagnostic Test (Pha) 1 strip Q6HR 03/16/25 18:00 04/08/25 17:50 1 STRIP Insulin Human Regular FOLLOW SLIDING SCALE Q6HR SC 03/16/25 18:00 04/08/25 18:11 2 UNITS Dextrose 50 ml UD IV 03/16/25 17:15 Folic Acid 1 mg/ Dextrose 50.2 ml @ 200.8 mls/ hr DAILY INJ 03/17/25 10:00 04/08/25 10:41 200.8 MLS/HR Thiamine HCl 100 mg DAILY IV 03/18/25 10:00 04/08/25 09:21 100 MG Atorvastatin Calcium 40 mg HS PO 03/17/25 22:00 Hold Sucralfate 1 gm QID@0600,1130,1700,2200 GT 03/23/25 17:00 04/08/25 22:05 1 GM Pantoprazole Sodium 40 mg BID IV 03/26/25 22:00 04/08/25 22:05 40 MG Levalbuterol HCl 0.625 mg Q6HR NEB 03/28/25 12:00 04/08/25 23:25 0.625 MG Nicotine 1 patch DAILY TD 03/29/25 10:00 04/08/25 09:23 1 PATCH Lorazepam 0.5 mg [id number] PRN IV 03/28/25 19:30 04/07/25 04:09 0.5 MG Clonidine HCl 0.2 mg TID PO 03/29/25 14:00 Hold 04/02/25 14:57 0.2 MG Losartan Potassium 100 mg DAILY PO 03/30/25 10:00 04/08/25 09:22 100 MG Ceftriaxone Sodium 50 ml @ 100 mls/hr DAILY@09 IV 04/04/25 09:00 04/08/25 09:24 100 MLS/HR Metronidazole 100 ml @ 100 mls/hr Q8HR IV 04/03/25 14:00 04/08/25 22:05 100 MLS/HR Ondansetron HCl 4 mg Q4HPRN PRN IV 04/03/25 10:00 04/07/25 18:10 4 MG Amino Acids 0 ml @ 0 mls/hr PER PHARMACY IV 04/03/25 10:00 Labetalol HCl 5 mg Q4HP PRN IV 04/03/25 11:30 04/05/25 21:14 5 MG Hydromorphone HCl 0.5 mg Q4HPRN PRN IV 04/03/25 11:30 04/08/25 22:06 0.5 MG Lidocaine HCl 0.5 ml ONCE PRN ID 04/03/25 16:45 04/03/25 17:30 0.5 ML Sodium Chloride 10 ml QSHIFT@10,22 IV 04/03/25 22:00 04/08/25 22:09 10 ML Enteral Nutritional Formula 240 ml TIDWM PO 04/06/25 08:00 04/08/25 18:34 240 ML Lactated Ringer's 1,000 ml @ 75 mls/hr [id number] IV 04/07/25 13:00 04/08/25 15:57 75 MLS/HR Linezolid 300 ml @ 150 mls/hr Q12H IV 04/08/25 11:00 04/08/25 23:14 150 MLS/HR Fat Emulsion Intravenous 150 ml/Sodium Chloride 50 meq/ Potassium Phosphate 22 meq/ Calcium Gluconate 2.3 meq/Magnesium Sulfate 16 meq/ Multivitamins 10 ml/Chromium/ Copper/Manganese/ Zinc 1 ml/Amino Acids/Dextrose 1,487.4462 ml @ 62 mls/hr Q24H IV 04/08/25 22:00 04/09/25 21:59 04/08/25 22:16 62 MLS/HR objective The patient is well-nourished and well-developed with no distress. MENTAL STATUS: Subjective CRANIAL NERVES: Pupils are equal, round and reactive. EOMs full and conjugate. Facial sensation intact in all three divisions bilaterally. Mandibular strength intact. Facial muscles symmetrical and strength intact. SENSATION: Okay to touch MOTOR: Normal tone in the upper and lower extremity. Normal muscle bulk. No fasciculations. Muscle power: Right arm: 0/5, right le-2/5, left arm: 3-4/5, left le/5 REFLEXES: Deep tendon reflexes are symmetrical, 3-4/4 in the knees and 4/4 in the ankles (stronger in the left ankle). No pathological reflexes. CEREBELLAR/COORDINATION: Deferred GAIT/STATION: deferred. laboratory and microbiology Laboratory Tests 04/08/25 04:45 Test 04/08/25 04:45 Range/Units Serum Glucose 107 #H 74-106 mg/dL Problem List Altered mental status Metabolic encephalopathy secondary to sepsis, septic shock, hypernatremia Hypoxic encephalopathy Worsened weakness in the left extremities, left lower extremity on 04/07/2025, MRI she has no new pathology Peptic ulcer, GI bleeding, anemia Respiratory failure Right hemiparesis Acute multiple strokes in different arterial territories (MRI 03/18/25) Multiple chronic strokes Maybe secondary to history methamphetamine, cocaine, alcohol use History of alcohol abuse History of cocaine, methamphetamine abuse Assessment/Plan Monitoring Supportive treatment Occult stool blood IV antibiotics Protonix 40 mg b.i.d. Aspirin 81 mg daily later Lipitor later TPN Thiamine supplementation Folic acid supplementation GI service on case Nephrology service on case More recommended per clinical course This medical document was created using an electronic medical record system with [employer] dictation system. Although this document has been carefully reviewed, there may still be some phonetic and typographical errors. These areas are purely typographical due to imperfect Prognosis poor Dietary Evaluation Review Recommendations by RD: Increase Calorie Intake, PPN/TPN Comments: Pt meets criteria 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 based on severe wt loss 35lb/24% in 5 month, intake <50% estimated requirement x 5 days, severe muscle wasting and fat depletion Nutrition Recommendation: 1) PPN/TPN if NPO continues 2) Advance to soft diet as medically feasible 3) Ensure Enlive 240ml TID if pt resumes PO diet 4) Monitor NPO status, lab values, weight trend, and I/O Expected Outcomes/Goals: Intake to meet >75% estimated needs GI symptoms to improve Fu 2-3 days Food and Nutrition Intake (Sev: <50% est energy req 5days Interpretation of weight loss: >10% in 6 months Body Fat Depletion (Severe): Mod to Severe Depletion Muscle Mass (Severe): Mod to Severe Depletion Protein Calorie Malnutrition: Severe Is there a minimum of two crit: Yes Plan discussed with: Other Total Time (mins): 35 CC Plasma Assessment Blood Product Administration S: [id number] LEANDRO BLACK MD Apr 08, 2025 23:51
[2025-04-09] VITALS (17 sets, daily range): BP systolic 129–160; BP diastolic 87–105; PULSE 98–116; RESP 18–22; TEMP 97.7–98.1; O2SAT 96–100
[2025-04-09 06:43] LABS: Hemoglobin 7.9 g/dL (13.5-17.5); Nucleated Red Blood Cells % 0.0 %
[2025-04-09 06:45] LABS: Hematocrit 24.0 % (41.0-53.0); Mean Corpuscular Hemoglobin 27.0 pg (28.0-32.0); Mean Corpuscular Volume 82.6 fL (80.0-100.0)
[2025-04-09 06:54] LABS: Alanine Aminotransferase 16 U/L (7-40); Anion Gap 9 (5-15); BUN/Creatinine Ratio 37.3 (10.0-20.0); Carbon Dioxide 24 mmol/L (20-31); Chloride 103 mmol/L (98-107); Magnesium 1.9 mg/dL (1.6-2.6); Potassium 3.7 mmol/L (3.5-5.1); Total Protein 6.0 g/dL (5.7-8.2)
[2025-04-09 07:09] LABS: Albumin 2.5 g/dL (3.2-4.8); Alkaline Phosphatase 156 U/L (46-116); Bilirubin, Total 0.2 mg/dL (0.2-1.0); Blood Urea Nitrogen 31 mg/dL (9-23); Calcium 7.9 mg/dL (8.7-10.4); Glucose 125 mg/dL (74-106); Sodium 136 mmol/L (136-145)
[2025-04-09 08:26] LABS: Anisocytosis Moderate; Macrocytosis Slight; Stomatocytes Few
--- NOTE | 2025-04-09 13:41 | DVHPN2 ---
Progress Note - Dictate Date Seen: Apr 09, 2025 Medical Necessity Reason Pt with a Central, PICC or Fol: Yes The following are medically ne: PICC Line, Barrios Catheter vital signs Vital Sign Date Time Temp Pulse Resp B/P (MAP) Pulse Ox O2 Delivery O2 Flow Rate FiO2 04/09/25 11:43 111 18 100 04/09/25 11:38 Room Air* 0 21 04/09/25 10:52 153/102 04/09/25 09:00 98.1 98.1 Total Intake and Output 04/08/25 04/08/25 04/09/25 15:00 23:00 07:00 Intake Total 500 ml 700 ml 850 ml Output Total 500 ml 1052 ml Balance 500 ml 200 ml -202 ml medications Current Medications Medications Dose Ordered Sig/Wally Route Start Time Stop Time Status Last Admin Dose Admin Diagnostic Test (Pha) 1 strip Q6HR 03/16/25 18:00 04/09/25 11:40 1 STRIP Insulin Human Regular FOLLOW SLIDING SCALE Q6HR SC 03/16/25 18:00 04/09/25 11:40 2 UNITS Dextrose 50 ml UD IV 03/16/25 17:15 Folic Acid 1 mg/ Dextrose 50.2 ml @ 200.8 mls/ hr DAILY INJ 03/17/25 10:00 04/09/25 09:56 200.8 MLS/HR Thiamine HCl 100 mg DAILY IV 03/18/25 10:00 04/09/25 10:01 100 MG Atorvastatin Calcium 40 mg HS PO 03/17/25 22:00 Hold Sucralfate 1 gm QID@0600,1130,1700,2200 GT 03/23/25 17:00 04/08/25 22:05 1 GM Pantoprazole Sodium 40 mg BID IV 03/26/25 22:00 04/09/25 10:01 40 MG Levalbuterol HCl 0.625 mg Q6HR NEB 03/28/25 12:00 04/09/25 11:37 0.625 MG Nicotine 1 patch DAILY TD 03/29/25 10:00 04/09/25 10:02 1 PATCH Lorazepam 0.5 mg [id number] PRN IV 03/28/25 19:30 04/07/25 04:09 0.5 MG Clonidine HCl 0.2 mg TID PO 03/29/25 14:00 Hold 04/02/25 14:57 0.2 MG Losartan Potassium 100 mg DAILY PO 03/30/25 10:00 04/09/25 10:01 100 MG Ceftriaxone Sodium 50 ml @ 100 mls/hr DAILY@09 IV 04/04/25 09:00 04/09/25 09:00 100 MLS/HR Metronidazole 100 ml @ 100 mls/hr Q8HR IV 04/03/25 14:00 04/09/25 06:24 100 MLS/HR Ondansetron HCl 4 mg Q4HPRN PRN IV 04/03/25 10:00 04/07/25 18:10 4 MG Amino Acids 0 ml @ 0 mls/hr PER PHARMACY IV 04/03/25 10:00 Labetalol HCl 5 mg Q4HP PRN IV 04/03/25 11:30 04/05/25 21:14 5 MG Hydromorphone HCl 0.5 mg Q4HPRN PRN IV 04/03/25 11:30 04/08/25 22:06 0.5 MG Lidocaine HCl 0.5 ml ONCE PRN ID 04/03/25 16:45 04/03/25 17:30 0.5 ML Sodium Chloride 10 ml QSHIFT@10,22 IV 04/03/25 22:00 04/09/25 10:10 10 ML Enteral Nutritional Formula 240 ml TIDWM PO 04/06/25 08:00 04/09/25 10:12 240 ML Lactated Ringer's 1,000 ml @ 75 mls/hr [id number] IV 04/07/25 13:00 04/09/25 05:27 75 MLS/HR Linezolid 300 ml @ 150 mls/hr Q12H IV 04/08/25 11:00 04/09/25 11:17 150 MLS/HR Fat Emulsion Intravenous 150 ml/Sodium Chloride 50 meq/ Potassium Phosphate 22 meq/ Calcium Gluconate 2.3 meq/Magnesium Sulfate 16 meq/ Multivitamins 10 ml/Chromium/ Copper/Manganese/ Zinc 1 ml/Amino Acids/Dextrose 1,487.4462 ml @ 62 mls/hr Q24H IV 04/08/25 22:00 04/09/25 21:59 04/08/25 22:16 62 MLS/HR Fat Emulsion Intravenous 150 ml/Sodium Chloride 60 meq/ Potassium Chloride 10 meq/ Potassium Acetate 20 meq/Potassium Phosphate 11 meq/ Calcium Gluconate 2.3 meq/Magnesium Sulfate 16 meq/ Multivitamins 10 ml/Chromium/ Copper/Manganese/ Zinc 1 ml/Amino Acids/Dextrose 1,502.4462 ml @ 63 mls/hr [id number] IV 04/09/25 22:00 04/10/25 21:59 laboratory and microbiology Laboratory Tests 04/09/25 05:35 Test 04/09/25 05:35 Range/Units Serum Glucose 125 H 74-106 mg/dL Assessment/Plan Impression Acute hypoxemic respiratory failure Multiple strokes GI bleed Anemia GIOVANI Patient seen and examined Events S/p d/grade Low oxygen requirements On 2 liters nasal cannula TPN S/p cholecystectomy Labs and imaging reviewed Management Supplemental oxygen Titrate to maintain sats 90% or above Incentive spirometry Aspiration precautions Continue antibiotics F/u cultures Bronchodilators Monitor renal function Monitor electrolytes Supplement as needed Monitor hemoglobin F/u GI DVT prophylaxis Dietary Evaluation Review Recommendations by RD: Increase Calorie Intake, PPN/TPN Comments: Pt meets criteria 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 based on severe wt loss 35lb/24% in 5 month, intake <50% estimated requirement x 5 days, severe muscle wasting and fat depletion Nutrition Recommendation: 1) PPN/TPN if NPO continues 2) Advance to soft diet as medically feasible 3) Ensure Enlive 240ml TID if pt resumes PO diet 4) Monitor NPO status, lab values, weight trend, and I/O Expected Outcomes/Goals: Intake to meet >75% estimated needs GI symptoms to improve Fu 2-3 days Food and Nutrition Intake (Sev: <50% est energy req 5days Interpretation of weight loss: >10% in 6 months Body Fat Depletion (Severe): Mod to Severe Depletion Muscle Mass (Severe): Mod to Severe Depletion Protein Calorie Malnutrition: Severe Is there a minimum of two crit: Yes CC Plasma Assessment Blood Product Administration S: [id number] VALENTE DEE MD Apr 09, 2025 13:41
--- NOTE | 2025-04-09 17:01 | DVHPNRES ---
Progress Note Date Seen: Apr 09, 2025 Resident Creating Document: KWASI MILLAN Medical Necessity Reason Pt with a Central, PICC or Fol: Yes The following are medically ne: PICC Line, Barrios Catheter Subjective Review of Systems Patient is seen today at bedside No acute complaint Possible DC to SNF tomorrow As per social service Ms Lehman "Per Pamela at [facility] [phone] she has accepted patient to her facility tomorrow 04/10/25 and will assign room number at that time." Objective vital signs Vital Sign Date Time Temp Pulse Resp B/P (MAP) Pulse Ox O2 Delivery O2 Flow Rate FiO2 04/09/25 13:00 98.1 104 20 146/96 (113) 96 98.1 04/09/25 11:38 Room Air* 0 21 Total Intake and Output 04/08/25 04/08/25 04/09/25 15:00 23:00 07:00 Intake Total 500 ml 700 ml 850 ml Output Total 500 ml 1052 ml Balance 500 ml 200 ml -202 ml medications Current Medications Medications Dose Ordered Sig/Wally Route Start Time Stop Time Status Last Admin Dose Admin Diagnostic Test (Pha) 1 strip Q6HR 03/16/25 18:00 04/09/25 11:40 1 STRIP Insulin Human Regular FOLLOW SLIDING SCALE Q6HR SC 03/16/25 18:00 04/09/25 11:40 2 UNITS Dextrose 50 ml UD IV 03/16/25 17:15 Folic Acid 1 mg/ Dextrose 50.2 ml @ 200.8 mls/ hr DAILY INJ 03/17/25 10:00 04/09/25 09:56 200.8 MLS/HR Thiamine HCl 100 mg DAILY IV 03/18/25 10:00 04/09/25 10:01 100 MG Atorvastatin Calcium 40 mg HS PO 03/17/25 22:00 Hold Sucralfate 1 gm QID@0600,1130,1700,2200 GT 03/23/25 17:00 04/09/25 14:34 1 GM Pantoprazole Sodium 40 mg BID IV 03/26/25 22:00 04/09/25 10:01 40 MG Levalbuterol HCl 0.625 mg Q6HR NEB 03/28/25 12:00 04/09/25 11:37 0.625 MG Nicotine 1 patch DAILY TD 03/29/25 10:00 04/09/25 10:02 1 PATCH Lorazepam 0.5 mg [id number] PRN IV 03/28/25 19:30 04/07/25 04:09 0.5 MG Clonidine HCl 0.2 mg TID PO 03/29/25 14:00 Hold 04/02/25 14:57 0.2 MG Losartan Potassium 100 mg DAILY PO 03/30/25 10:00 04/09/25 10:01 100 MG Ceftriaxone Sodium 50 ml @ 100 mls/hr DAILY@09 IV 04/04/25 09:00 04/09/25 09:00 100 MLS/HR Metronidazole 100 ml @ 100 mls/hr Q8HR IV 04/03/25 14:00 04/09/25 14:34 100 MLS/HR Ondansetron HCl 4 mg Q4HPRN PRN IV 04/03/25 10:00 04/07/25 18:10 4 MG Amino Acids 0 ml @ 0 mls/hr PER PHARMACY IV 04/03/25 10:00 Labetalol HCl 5 mg Q4HP PRN IV 04/03/25 11:30 04/05/25 21:14 5 MG Hydromorphone HCl 0.5 mg Q4HPRN PRN IV 04/03/25 11:30 04/08/25 22:06 0.5 MG Lidocaine HCl 0.5 ml ONCE PRN ID 04/03/25 16:45 04/03/25 17:30 0.5 ML Sodium Chloride 10 ml QSHIFT@10,22 IV 04/03/25 22:00 04/09/25 10:10 10 ML Enteral Nutritional Formula 240 ml TIDWM PO 04/06/25 08:00 04/09/25 16:35 240 ML Lactated Ringer's 1,000 ml @ 75 mls/hr [id number] IV 04/07/25 13:00 04/09/25 05:27 75 MLS/HR Linezolid 300 ml @ 150 mls/hr Q12H IV 04/08/25 11:00 04/09/25 11:17 150 MLS/HR Fat Emulsion Intravenous 150 ml/Sodium Chloride 50 meq/ Potassium Phosphate 22 meq/ Calcium Gluconate 2.3 meq/Magnesium Sulfate 16 meq/ Multivitamins 10 ml/Chromium/ Copper/Manganese/ Zinc 1 ml/Amino Acids/Dextrose 1,487.4462 ml @ 62 mls/hr Q24H IV 04/08/25 22:00 04/09/25 21:59 04/08/25 22:16 62 MLS/HR Fat Emulsion Intravenous 150 ml/Sodium Chloride 60 meq/ Potassium Chloride 10 meq/ Potassium Acetate 20 meq/Potassium Phosphate 11 meq/ Calcium Gluconate 2.3 meq/Magnesium Sulfate 16 meq/ Multivitamins 10 ml/Chromium/ Copper/Manganese/ Zinc 1 ml/Amino Acids/Dextrose 1,502.4462 ml @ 63 mls/hr [id number] IV 04/09/25 22:00 04/10/25 21:59 Examination General Appearance: Alert, Oriented X3 HEENT: Atraumatic, PERRLA, EOMI, Mucous membrane moist/pink Respiratory: Bilateral crackles. Cardiovascular: Regular rate, Normal S1, Normal S2, No murmurs, no chest wall tenderness Abdominal: Surgical wound with dressing on the right upper quadrant with 2 KWAN drain, mildly tender, No hepatosplenomegaly, No masses, decreased bowel sounds Extremities: PICC line on the rt upper arm, No clubbing, No cyanosis, No edema, Normal pulses, No tenderness/swelling Skin: No rashes, No breakdown, No significant lesion Neuro: Normal speech, right-sided weakness, Strength at 5/5 X2 ext, Normal tone, Sensation intact, grossly intact cranial nerves laboratory and microbiology Laboratory Tests 04/09/25 05:35 Test 04/09/25 05:35 Range/Units Serum Glucose 125 H 74-106 mg/dL Microbiology Date/Time Source Procedure Growth Status 04/08/25 15:30 Blood Blood Culture - Preliminary NO GROWTH AFTER 24 HOURS OF INCUBATION. Resulted 04/03/25 10:17 Gallbladder Gram Stain - Final Complete 04/03/25 10:17 Gallbladder Anaerobic Culture - Final Complete 04/03/25 10:17 Aerobic Culture - Final Enterococcus faecium - VRE Presumptive Milady albicans Complete 03/16/25 16:06 Sputum Gram Stain - Final Complete 03/16/25 16:06 Respiratory Culture - Final Stenotrophomonas maltophilia Escherichia coli Presumptive Milady albicans Complete 03/13/25 11:53 Stool Stool Culture - Final Complete 03/13/25 11:53 Stool Shiga Toxin I & II - Final Complete 03/12/25 11:55 Urine - Barrios Port Urine Culture - Final Complete Problem List/Assessment/Plan Problem List/Assessment/Plan Problem List/Assessment/Plan NEURO: Acute metabolic encephalopathy secondary to acute ischemic stroke; resolved; able to make decisions; alert and oriented X3 Acute or subacute ischemic stroke Hypertensive emergency Acute anxiety - CT head without contrast demonstrated new medial right parieto-occipital focal region of diminished parenchymal attenuation within the medial right parietal occipital lobes. This is concerning for an acute to subacute infarct with chronic multifocal lacunar infarct - MRI showed Infarcts involving multiple vascular territories involved medial right occipital lobe, posterior left occipital lobe, and left lopes radiata white matter tracts. Few additional tiny foci of diffusion restriction at the anterior right parietal cortex. - Neurology on board - hold aspirin and Plavix for now because of GI bleeding - atorvastatin 40 mg p.o. daily - Clonidine 0.2 mg p.o.tid, losartan 100 mg daily and IV labetalol 5 mg q.2h PRN SBP>150 - IV Ativan 0.5 mg q.12 PRN CARDIOVASCULAR: Chronic diastolic heart failure with preserved ejection fraction - Echo on 11/12 demonstrated EF 65%, MILD LVH AND MILD LV DIASTOLIC DYSFUNCTION - elevated BNP - CXR showed Bilateral interstitial opacities, small left basilar consolidation and pleural effusion PULMONARY: Acute hypoxic respiratory failure; to continue oxygen therapy as indicated; currently room air S/P extubation GASTROINTESTINAL: 04/03/2025: S/P open cholecystectomy with common bile duct exploration with intrahepatic cholangiogram . Acute GI bleed upper vs lower Partial small Intestinal obstruction likely secondary to fecal impaction. Cholelithiasis C diff positive Elevated alkaline phosphatase -CT abdomen/pelvis showed low-grade distal partial obstruction due to fecal retention. - Gastrografin study showed Contrast is identified within the colon by 3 hours. No evidence of bowel obstruction. -EGD on 03/13/25 showed 1-2 cm sliding-type hiatal hernia with severe grade C linear erosive esophagitis with esophageal ulcers extending into the distal 15 cm of the esophagus persistent duodenal bulb ulcer seen just inside the pyloric opening which was large coalescing with a visible sutures; there was no active bleeding or visible vessel but there was acute on chronic inflammation deformity of the postbulbar duodenal area and but there was area of debris and ongoing chronic ulceration inflammation and the endoscope was not advanced beyond this area mild gastritis and some old coffee-ground within the stomach - GB U/S demonstrated gallbladder wall thickening and pericholecystic edema, concerning for cholecystitis and dilated CBD up to 16 mm. - MRCP scan demonstrated Choledocholithiasis in the mid to distal common bile duct predominantly dependently. - - full liquid diet - IV ceftriaxone 1 g daily and IV metronidazole 500 mg t.i.d. - TPN per pharmacy - IV Protonix 40 mg bid - Carafate suspension 1 g q.i.d. - Zofran 4 mg IV q.4 PRN - Monitor Hand H, transfuse if hemoglobin less than 7- 04/06/25: HR elevated, dehydrated, 2 bolus of LR 04/07/25: stable for downgrade. continue LR 75cc/h 04/08/25: patient continues to have elevated wbc, elevated HR, we are adding zyvox to the treatment, new urine, blood and drain culture added. also PT suggested that recovery should be continue in SNF after DC, ordered placed GENITOURINARY: GIOVANI on CKD likely hemodynamically mediated/VMN resolved - Monitor BMP METABOLIC: Hypernatremia Hypokalemia Hypophosphatemia - monitor BMP and replace/correct electrolytes as indicated HEME: Severe microcytic hypochromic anemia due to GI bleeding Iron deficiency due to above Bilateral superficial thrombophlebitis - Patient received 4 units of PRBCs - Monitor H&H INFECTIOUS DISEASE: Acute C diff infection - po vancomycin on hold because of upper GI bleeding Nicotine dependence - Nicotine dependence 21 g/24 hours DIET: TPN, full liquid diet DVT prophylax: SCDs due to GI bleed GI prophylaxis: Protonix IV Bowel regimen: Code status: Full code; goals of care rediscussed with the patient and the patient's for 20 minutes; continues to be full code LINES/DRAINS/ACCESS: Extubated on 03/27/25 LINES: Rt PICC line Drips: TPN Barrios catheter DISPOSITION: ICU Patient's status discussed with RN, Time care time spent: 90 minutes, including patient care, chart review, and updating the family. Excluding any procedures. Case discussed with Dr. Medina Plan discussed with: Patient, Other (rn) Plan discussed with: Patient, Other (RN) Dietary Evaluation Review Recommendations by RD: Increase Calorie Intake, PPN/TPN Comments: Pt meets criteria 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 based on severe wt loss 35lb/24% in 5 month, intake <50% estimated requirement x 5 days, severe muscle wasting and fat depletion Nutrition Recommendation: 1) PPN/TPN if NPO continues 2) Advance to soft diet as medically feasible 3) Ensure Enlive 240ml TID if pt resumes PO diet 4) Monitor NPO status, lab values, weight trend, and I/O Expected Outcomes/Goals: Intake to meet >75% estimated needs GI symptoms to improve Fu 2-3 days Food and Nutrition Intake (Sev: <50% est energy req 5days Interpretation of weight loss: >10% in 6 months Body Fat Depletion (Severe): Mod to Severe Depletion Muscle Mass (Severe): Mod to Severe Depletion Protein Calorie Malnutrition: Severe Is there a minimum of two crit: Yes CC Plasma Assessment Blood Product Administration S: [id number] Date of Service: Apr 09, 2025 Billing Provider: CRISTA MEDINA MD Common Visit Codes: [id number] INP/OBS CARE(HIGH) KWASI MILLAN RESIDENT Apr 09, 2025 17:01 CRISTA MEDINA MD Apr 19, 2025 19:54
--- NOTE | 2025-04-09 21:38 | DVHPN2 ---
Progress Note - Dictate Date Seen: Apr 09, 2025 Medical Necessity Reason Pt with a Central, PICC or Fol: Yes The following are medically ne: PICC Line, Barrios Catheter Subjective Patient is stable awake alert He is downgraded to the floor MRI of the brain was negative KWAN drain 10 mg, T-tube drain 50 mL Intraoperative cholangiogram showed filling defect Liver enzymes are trending down and alkaline phosphatase is down to 156 Underwent a open cholecystectomy with CBD exploration T-tube was then placed; patient had extensive inflammatory changes around the duodenal area No active GI bleeding reported, hemoglobin stable at 7.9 Hepatitis panel is negative and HIV is negative and ferritin is normal vital signs Vital Sign Date Time Temp Pulse Resp B/P (MAP) Pulse Ox O2 Delivery O2 Flow Rate FiO2 04/09/25 21:00 97.9 102 18 129/87 (101) 99 97.9 04/09/25 18:26 Room Air* 0 21 Total Intake and Output 04/08/25 04/08/25 04/09/25 15:00 23:00 07:00 Intake Total 500 ml 700 ml 850 ml Output Total 500 ml 1052 ml Balance 500 ml 200 ml -202 ml medications Current Medications Medications Dose Ordered Sig/Wally Route Start Time Stop Time Status Last Admin Dose Admin Diagnostic Test (Pha) 1 strip Q6HR 03/16/25 18:00 04/09/25 18:24 1 STRIP Insulin Human Regular FOLLOW SLIDING SCALE Q6HR SC 03/16/25 18:00 04/09/25 11:40 2 UNITS Dextrose 50 ml UD IV 03/16/25 17:15 Folic Acid 1 mg/ Dextrose 50.2 ml @ 200.8 mls/ hr DAILY INJ 03/17/25 10:00 04/09/25 09:56 200.8 MLS/HR Thiamine HCl 100 mg DAILY IV 03/18/25 10:00 04/09/25 10:01 100 MG Atorvastatin Calcium 40 mg HS PO 03/17/25 22:00 Hold Sucralfate 1 gm QID@0600,1130,1700,2200 GT 03/23/25 17:00 04/09/25 17:23 1 GM Pantoprazole Sodium 40 mg BID IV 03/26/25 22:00 04/09/25 10:01 40 MG Levalbuterol HCl 0.625 mg Q6HR NEB 03/28/25 12:00 04/09/25 18:12 0.625 MG Nicotine 1 patch DAILY TD 03/29/25 10:00 04/09/25 10:02 1 PATCH Lorazepam 0.5 mg [id number] PRN IV 03/28/25 19:30 04/07/25 04:09 0.5 MG Clonidine HCl 0.2 mg TID PO 03/29/25 14:00 Hold 04/02/25 14:57 0.2 MG Losartan Potassium 100 mg DAILY PO 03/30/25 10:00 04/09/25 10:01 100 MG Ceftriaxone Sodium 50 ml @ 100 mls/hr DAILY@09 IV 04/04/25 09:00 04/09/25 09:00 100 MLS/HR Metronidazole 100 ml @ 100 mls/hr Q8HR IV 04/03/25 14:00 04/09/25 14:34 100 MLS/HR Ondansetron HCl 4 mg Q4HPRN PRN IV 04/03/25 10:00 04/07/25 18:10 4 MG Amino Acids 0 ml @ 0 mls/hr PER PHARMACY IV 04/03/25 10:00 Labetalol HCl 5 mg Q4HP PRN IV 04/03/25 11:30 04/09/25 17:41 5 MG Hydromorphone HCl 0.5 mg Q4HPRN PRN IV 04/03/25 11:30 04/08/25 22:06 0.5 MG Lidocaine HCl 0.5 ml ONCE PRN ID 04/03/25 16:45 04/03/25 17:30 0.5 ML Sodium Chloride 10 ml QSHIFT@10,22 IV 04/03/25 22:00 04/09/25 10:10 10 ML Enteral Nutritional Formula 240 ml TIDWM PO 04/06/25 08:00 04/09/25 18:26 240 ML Lactated Ringer's 1,000 ml @ 75 mls/hr [id number] IV 04/07/25 13:00 04/09/25 05:27 75 MLS/HR Linezolid 300 ml @ 150 mls/hr Q12H IV 04/08/25 11:00 04/09/25 11:17 150 MLS/HR Fat Emulsion Intravenous 150 ml/Sodium Chloride 50 meq/ Potassium Phosphate 22 meq/ Calcium Gluconate 2.3 meq/Magnesium Sulfate 16 meq/ Multivitamins 10 ml/Chromium/ Copper/Manganese/ Zinc 1 ml/Amino Acids/Dextrose 1,487.4462 ml @ 62 mls/hr Q24H IV 04/08/25 22:00 04/09/25 21:59 04/08/25 22:16 62 MLS/HR Fat Emulsion Intravenous 150 ml/Sodium Chloride 60 meq/ Potassium Chloride 10 meq/ Potassium Acetate 20 meq/Potassium Phosphate 11 meq/ Calcium Gluconate 2.3 meq/Magnesium Sulfate 16 meq/ Multivitamins 10 ml/Chromium/ Copper/Manganese/ Zinc 1 ml/Amino Acids/Dextrose 1,502.4462 ml @ 63 mls/hr [id number] IV 04/09/25 22:00 04/10/25 21:59 objective General-cachectic male HEENT-normocephalic, no icterus, no pallor, neck supple Respiratory-fair air entry bilateral, no rhonchi, no wheeze [id number] heard, no murmurs appreciated Abdominal-soft, nontender, nondistended Musculoskeletal-no pedal edema, no calf tenderness Genitourinary-deferred Neuro-awake alert oriented x3, Psychiatric-not agitated, cooperative, laboratory and microbiology Laboratory Tests 04/09/25 05:35 Test 04/09/25 05:35 Range/Units Serum Glucose 125 H 74-106 mg/dL Problems(with codes): (1) Elevated liver function tests (2) Altered mental status (3) TIA (transient ischemic attack) (4) C. difficile colitis (5) Elevated liver enzymes (6) Gallstone (7) Duodenal ulcer disease Prognosis Plan Continue conservative management Patient is on IV fluids and IV antibiotics Continue IV Protonix Oral Carafate via the NG tube Advance diet as tolerated and taper off TPN Surgical consult following regarding T-tube cholangiogram Discharge planning to SNF Dietary Evaluation Review Recommendations by RD: Increase Calorie Intake, PPN/TPN Comments: Pt meets criteria 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 based on severe wt loss 35lb/24% in 5 month, intake <50% estimated requirement x 5 days, severe muscle wasting and fat depletion Nutrition Recommendation: 1) PPN/TPN if NPO continues 2) Advance to soft diet as medically feasible 3) Ensure Enlive 240ml TID if pt resumes PO diet 4) Monitor NPO status, lab values, weight trend, and I/O Expected Outcomes/Goals: Intake to meet >75% estimated needs GI symptoms to improve Fu 2-3 days Food and Nutrition Intake (Sev: <50% est energy req 5days Interpretation of weight loss: >10% in 6 months Body Fat Depletion (Severe): Mod to Severe Depletion Muscle Mass (Severe): Mod to Severe Depletion Protein Calorie Malnutrition: Severe Is there a minimum of two crit: Yes Plan discussed with: Patient CC Plasma Assessment Blood Product Administration S: [id number] GURJIT NOBLE MD Apr 09, 2025 21:38
[2025-04-10] VITALS (14 sets, daily range): BP systolic 145–161; BP diastolic 96–107; PULSE 87–109; RESP 16–18; TEMP 97.5–98.3; O2SAT 97–100
[2025-04-10 07:08] LABS: Hematocrit 27.0 % (41.0-53.0); Hemoglobin 9.0 g/dL (13.5-17.5); Mean Corpuscular Hemoglobin 27.7 pg (28.0-32.0); Mean Corpuscular Volume 83.4 fL (80.0-100.0); Nucleated Red Blood Cells % 0.1 %
[2025-04-10 07:22] LABS: Alanine Aminotransferase 12 U/L (7-40); Anion Gap 10 (5-15); BUN/Creatinine Ratio 28.1 (10.0-20.0); Carbon Dioxide 23 mmol/L (20-31); Chloride 101 mmol/L (98-107); Magnesium 2.1 mg/dL (1.6-2.6); Potassium 3.7 mmol/L (3.5-5.1); Total Protein 6.1 g/dL (5.7-8.2)
[2025-04-10 07:26] LABS: Albumin 2.7 g/dL (3.2-4.8); Alkaline Phosphatase 166 U/L (46-116); Bilirubin, Total 0.2 mg/dL (0.2-1.0); Blood Urea Nitrogen 25 mg/dL (9-23); Calcium 8.1 mg/dL (8.7-10.4); Glucose 112 mg/dL (74-106); Sodium 134 mmol/L (136-145)
[2025-04-10 08:38] LABS: Anisocytosis Moderate
--- NOTE | 2025-04-10 09:32 | DVHPN2 ---
Progress Note Date Seen: Apr 10, 2025 Medical Necessity Reason Pt with a Central, PICC or Fol: Yes The following are medically ne: PICC Line, Barrios Catheter Objective vital signs Vital Sign Date Time Temp Pulse Resp B/P (MAP) Pulse Ox O2 Delivery O2 Flow Rate FiO2 04/10/25 06:34 103 16 100 04/10/25 06:28 Room Air* 0 21 04/10/25 05:00 98.3 148/99 (115) 98.3 Total Intake and Output 04/09/25 04/09/25 04/10/25 15:00 23:00 07:00 Intake Total 450 ml 740 ml 1750 ml Output Total 1600 ml 1100 ml Balance 450 ml -860 ml 650 ml medications Current Medications Medications Dose Ordered Sig/Wally Route Start Time Stop Time Status Last Admin Dose Admin Diagnostic Test (Pha) 1 strip Q6HR 03/16/25 18:00 04/10/25 06:14 1 STRIP Insulin Human Regular FOLLOW SLIDING SCALE Q6HR SC 03/16/25 18:00 04/10/25 06:45 2 UNITS Dextrose 50 ml UD IV 03/16/25 17:15 Folic Acid 1 mg/ Dextrose 50.2 ml @ 200.8 mls/ hr DAILY INJ 03/17/25 10:00 04/09/25 09:56 200.8 MLS/HR Thiamine HCl 100 mg DAILY IV 03/18/25 10:00 04/09/25 10:01 100 MG Atorvastatin Calcium 40 mg HS PO 03/17/25 22:00 Hold Sucralfate 1 gm QID@0600,1130,1700,2200 GT 03/23/25 17:00 04/10/25 06:14 1 GM Pantoprazole Sodium 40 mg BID IV 03/26/25 22:00 04/09/25 22:50 40 MG Levalbuterol HCl 0.625 mg Q6HR NEB 03/28/25 12:00 04/10/25 06:28 0.625 MG Nicotine 1 patch DAILY TD 03/29/25 10:00 04/09/25 10:02 1 PATCH Lorazepam 0.5 mg [id number] PRN IV 03/28/25 19:30 04/07/25 04:09 0.5 MG Clonidine HCl 0.2 mg TID PO 03/29/25 14:00 Hold 04/02/25 14:57 0.2 MG Losartan Potassium 100 mg DAILY PO 03/30/25 10:00 04/09/25 10:01 100 MG Ceftriaxone Sodium 50 ml @ 100 mls/hr DAILY@09 IV 04/04/25 09:00 04/09/25 09:00 100 MLS/HR Metronidazole 100 ml @ 100 mls/hr Q8HR IV 04/03/25 14:00 04/10/25 06:14 100 MLS/HR Ondansetron HCl 4 mg Q4HPRN PRN IV 04/03/25 10:00 04/07/25 18:10 4 MG Amino Acids 0 ml @ 0 mls/hr PER PHARMACY IV 04/03/25 10:00 Labetalol HCl 5 mg Q4HP PRN IV 04/03/25 11:30 04/09/25 17:41 5 MG Hydromorphone HCl 0.5 mg Q4HPRN PRN IV 04/03/25 11:30 04/09/25 22:52 0.5 MG Lidocaine HCl 0.5 ml ONCE PRN ID 04/03/25 16:45 04/03/25 17:30 0.5 ML Sodium Chloride 10 ml QSHIFT@10,22 IV 04/03/25 22:00 04/09/25 22:50 10 ML Enteral Nutritional Formula 240 ml TIDWM PO 04/06/25 08:00 04/09/25 18:26 240 ML Lactated Ringer's 1,000 ml @ 75 mls/hr [id number] IV 04/07/25 13:00 04/10/25 06:14 75 MLS/HR Linezolid 300 ml @ 150 mls/hr Q12H IV 04/08/25 11:00 04/10/25 00:39 150 MLS/HR Fat Emulsion Intravenous 150 ml/Sodium Chloride 60 meq/ Potassium Chloride 10 meq/ Potassium Acetate 20 meq/Potassium Phosphate 11 meq/ Calcium Gluconate 2.3 meq/Magnesium Sulfate 16 meq/ Multivitamins 10 ml/Chromium/ Copper/Manganese/ Zinc 1 ml/Amino Acids/Dextrose 1,502.4462 ml @ 63 mls/hr [id number] IV 04/09/25 22:00 04/10/25 21:59 04/09/25 22:54 63 MLS/HR laboratory and microbiology Laboratory Tests 04/10/25 05:53 Test 04/10/25 05:53 Range/Units Serum Glucose 112 H 74-106 mg/dL Problem List/Assessment/Plan Problem List/Assessment/Plan 04/04/25 doing well, wound clean and well approximated, dran with sero sanguineous drainage, t tube draining clear bile, he is feeling "much better" and is hungry. labs reviewed. will dc ngt and start po intake 04/05/25 MARKEDLY IMPROVED, ABDOMEN NON DISTENDED APPROPRIATELY TENDER, T TUBE WITH CLEAR BILE, NELLIE DRAIN SEROSANGUINEOUS WILL ADVANCE PO INTAKE, NEEDS PHYSICAL THERAPY 04/07/25 patient in MRI for brain study, chart reviewed, essentially unchanged, amylase normal, the defect noted by radiologist on the operative cholangiogram is most likely cast by the T tube . 04/10/25 afebrile, normotensive bilirubin normal, cbc OK, wound ok,t tube draining clear bile, nellie drainage serous, I will sign off, pt stable to transfer to SNF, to follow up in surg.clinic two weeks after discharge Plan discussed with: Patient, Other Dietary Evaluation Review Recommendations by RD: Increase Calorie Intake, PPN/TPN Comments: Pt meets criteria 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 based on severe wt loss 35lb/24% in 5 month, intake <50% estimated requirement x 5 days, severe muscle wasting and fat depletion Nutrition Recommendation: 1) PPN/TPN if NPO continues 2) Advance to soft diet as medically feasible 3) Ensure Enlive 240ml TID if pt resumes PO diet 4) Monitor NPO status, lab values, weight trend, and I/O Expected Outcomes/Goals: Intake to meet >75% estimated needs GI symptoms to improve Fu 2-3 days Food and Nutrition Intake (Sev: <50% est energy req 5days Interpretation of weight loss: >10% in 6 months Body Fat Depletion (Severe): Mod to Severe Depletion Muscle Mass (Severe): Mod to Severe Depletion Protein Calorie Malnutrition: Severe Is there a minimum of two crit: Yes LOBO BOSWELL MD Apr 10, 2025 09:32
--- NOTE | 2025-04-10 12:25 | DVHDSRES ---
Discharge Summary Date of Admission Resident Creating Document: KWASI MILLAN RESIDENT Mar 11, 2025 at 23:56 Date of Discharge: Apr 10, 2025 Admitting Diagnosis GI bleeding Severe anemia Labs/Diagnostic Data: Laboratory Results Test 04/10/25 11:25 04/10/25 05:53 04/09/25 05:35 04/06/25 03:50 POC Glucose 146 mg/dl (70-106) White Blood Count 13.9 10^3/uL (4.4-10.8) Red Blood Count 3.24 10^6/uL (4.5-5.90) Hemoglobin 9.0 g/dL (13.5-17.5) Hematocrit 27.0 % (41.0-53.0) Mean Corpuscular Volume 83.4 fL (80.0-100.0) Mean Corpuscular Hemoglobin 27.7 pg (28.0-32.0) Mean Corpuscular Hemoglobin Concent 33.3 g/dL (32.0-36.0) Red Cell Distribution Width 24.7 % (11.8-14.3) Platelet Count 349 10^3/uL (140-450) Mean Platelet Volume 8.0 fL (6.9-10.8) Neutrophils (%) (Auto) 79.4 % (37.0-80.0) Lymphocytes (%) (Auto) 11.4 % (10.0-50.0) Monocytes (%) (Auto) 6.7 % (0.0-12.0) Eosinophils (%) (Auto) 1.3 % (0.0-7.0) Basophils (%) (Auto) 1.2 % (0.0-2.0) Neutrophils # (Auto) 11.0 10 ^3/uL (1.6-8.6) Lymphocytes # (Auto) 1.6 10 ^3/uL (0.4-5.4) Monocytes # (Auto) 0.9 10 ^3/uL (0-1.3) Eosinophils # (Auto) 0.2 10 ^3/uL (0-0.8) Basophils # (Auto) 0.2 10 ^3/uL (0-0.2) Nucleated Red Blood Cells 0.1 % Platelet Estimate Adequate Large Platelets Few Poikilocytosis (manual) Slight Anisocytosis (manual) Moderate Schistocytes Few Sodium Level 134 mmol/L (136-145) Potassium Level 3.7 mmol/L (3.5-5.1) Chloride Level 101 mmol/L (98-107) Carbon Dioxide Level 23 mmol/L (20-31) Anion Gap 10 (5-15) Blood Urea Nitrogen 25 mg/dL (9-23) Creatinine 0.89 mg/dL (0.700-1.30) Glomerular Filtration Rate Calc 104 mL/min (>90) BUN/Creatinine Ratio 28.1 (10.0-20.0) Serum Glucose 112 mg/dL (74-106) Calcium Level 8.1 mg/dL (8.7-10.4) Phosphorus Level 2.6 mg/dL (2.4-5.1) Magnesium Level 2.1 mg/dL (1.6-2.6) Total Bilirubin 0.2 mg/dL (0.2-1.0) Aspartate Amino Transferase (AST) 20 U/L (13-40) Alanine Aminotransferase (ALT) 12 U/L (7-40) Alkaline Phosphatase 166 U/L (46-116) Total Protein 6.1 g/dL (5.7-8.2) Albumin 2.7 g/dL (3.2-4.8) Giant Platelets Macrocytosis Slight Stomatocytes Few Estimated GFR () 126 mL/min Estimated GFR (Non- 104 mL/min Amylase Level 70 U/L (30-118) Test 04/04/25 03:50 04/03/25 03:12 04/01/25 13:53 03/30/25 07:51 Triglycerides Level 98 mg/dL (< 150) Prothrombin Time 11.9 sec (9.3-11.8) Prothrombin Time INR 1.14 (0.9-1.15) Activated Partial Thromboplast Time 30.1 SEC (24.5-34.5) Blood Gas Specimen Type Arterial Blood Gas Sample Site Right radial Blood Gas Patient Temperature 37.0 Arterial Blood Date Drawn Arterial Blood pH 7.517 (7.350-7.450) Arterial Blood Partial Pressure CO2 31.6 mmHg (35.0-48.0) Arterial Blood Partial Pressure O2 89.5 mmHg (83.0-108.0) Arterial Blood HCO3 25.1 mmol/L (21.0-28.0) Arterial Blood Oxygen Saturation 96.6 % (94.0-98.0) Arterial Blood Base Excess 2.5 mmol/L (-2.0-3.0) Arterial Blood Oxyhemoglobin 96.2 % (94.0-98.0) Arterial Blood Carboxyhemoglobin 0.3 % (0.5-1.5) Arterial Blood Methemoglobin 0.1 % (0.0-1.5) Ke Test Yes Blood Gas Total Hemoglobin 10.90 g/dL (13.5-17.5) Blood Gas Modality High flow FiO2 % 40.0 Test 03/29/25 20:12 03/29/25 06:40 03/29/25 03:15 03/29/25 00:53 Blood Gas Set Respiration Rate 12.0 Blood Gas EPAP 7 Blood Gas IPAP 16 Stool Occult Blood Positive (Negative) Stool Occult Blood Sample #2 (Negative) Stool Occult Blood Sample #3 (Negative) B-Type Natriuretic Peptide 1867.91 pg/mL (0-100) Blood Gas Spontaneous Rate 32 Test 03/27/25 09:31 03/27/25 08:19 03/18/25 14:10 03/17/25 14:40 Blood Gas Spontaneous Tidal Volume 500 Blood Gas Pressure Support 8 Blood Gas PEEP or CPAP 5.0 Blood Gas Tidal Volume 500.0 Hepatitis A Antibody Total Negative (Negative) Hepatitis B Surface Antigen Negative (Negative) Hepatitis B Surface Antibody Negative (Negative) Hepatitis B Core Total Antibody Negative (Negative) Hepatitis C Antibody Negative (Negative) HIV (1&2) Antibody Negative (Negative) Test 03/17/25 07:41 03/17/25 06:30 03/16/25 17:45 03/16/25 17:16 Blood Gas Critical Value Read Back Yes Blood Gas Notified Whom Rishi gunn Blood Gas Notified Time [id number] Blood Gas Notified By Dong vice president [employer] Urine Creatinine 56.14 mg/dL (30.0-125.0) Urine Sodium 13 mmol/L (40-220) Specimen Drawn By [facility] rt Direct Bilirubin 0.5 mg/dL (<0.3) Vitamin D 25-Hydroxy 35.5 ng/mL (30.0-100) Test 03/16/25 14:00 03/16/25 13:59 03/13/25 04:58 03/13/25 03:46 Blood Gas Liter Flow 4.00 Parathyroid Hormone (Intact) 190.7 pg/mL (18.4-80.1) Thyroid Stimulating Hormone (TSH) 3.84 uIU/mL (0.55-4.78) Ammonia 18 umol/L (11-32) Test 03/12/25 10:20 03/12/25 05:00 03/12/25 04:28 03/11/25 23:05 Urine Protein/Creatinine Ratio 2.26 Urine Total Protein 23.6 mg/dL (1-14) Urine Color Light-yellow (Yellow) Urine Clarity Clear (Clear) Urine pH 5.5 (5.0-9.0) Urine Specific [place] 1.013 (1.001-1.035) Urine Protein Trace (Negative) Urine Ketones Trace (Negative) Urine Blood Negative /uL (Negative) Urine Nitrite Negative (Negative) Urine Bilirubin Negative (Negative) Urine Urobilinogen Normal mg/dL (Negative) Urine Leukocyte Esterase Negative /uL (Negative) Urine RBC <1 /hpf (0 - 3) Urine Microscopic WBC < 1 /HPF (0-3) Urine Squamous Epithelial Cells None seen /hpf (<5) Urine Bacteria None seen /hpf (None Seen) Urine Glucose Normal mg/dL (Normal) Urine Opiates Screen Neg (NEGATIVE) Urine Fentanyl Screen Neg (NEGATIVE) Urine Barbiturates Screen Neg (NEGATIVE) Urine Phencyclidine Screen Neg (NEGATIVE) Urine Amphetamines Screen Neg (NEGATIVE) Urine Benzodiazepines Screen Neg (NEGATIVE) Urine Cocaine Screen Neg (NEGATIVE) Urine Cannabinoids Screen Neg (NEGATIVE) Iron Level 39 ug/dL (65-175) Total Iron Binding Capacity 321 ug/dL (250-425) Percent Iron Saturation 12.1 % (20-55) Ferritin 21.1 ng/mL (22-322) Vitamin B12 Level 852 pg/mL (211-911) Folic Acid 12.28 ng/mL (>5.38) Plasma/Serum Blood Alcohol < 3.0 mg/dL (<10) Reticulocyte Count (auto) 3.05 % (0.5-1.5) Lactate Dehydrogenase 245 U/L (120-246) Test 03/11/25 17:15 Lactic Acid Level 1.9 mmol/L (0.4-2.0) Other Laboratory Tests 04/10/25 05:53 Brief Hx & Hospital Course: Jossue Perez is a 49-year-old male past medical history of hypertension, hyperlipidemia, DVT, 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 The patient mentions he had passage of stool 7 times yesterday which was tarry black in color. Patient mentions he also had abdominal pain, nausea and a few episodes of vomiting for the last 2 days. He denies any fever,weakness or weight loss. He reports history of perforated duodenal ulcer s/p exp lap with prolonged ICU stay complicated with sepsis from cholecystitis s/p tracheostomy and removal. On arrival to the hospital, his hemoglobin was 4.2. Patient had blood transfusion. During hospital course patient has had 4 units of blood transfusion. Patient was seen by service center appraiser and endoscopy was done. On 03/12/2025 CT abdomen pelvis revealed2. Constipation and fecal impaction in the rectum with mild mucosal thickening of the rectum.Upstream dilatation of small-bowel loops and the stomach possibly reflecting a low-grade distal partial obstruction due to fecal retention. Cholelithiasis. Bilateral lower lobe atelectasis. Revealed cholelithiasis. Patient had endoscopy done on 03/13/2025 which revealed 1-2 cm sliding-type hiatal hernia with severe grade C linear erosive esophagitis with esophageal ulcers extending into the distal 15 cm of the esophagus. Patient had a persistent duodenal bulb ulcer seen just inside the pyloric opening which was large coalescing with a visible sutures; there was no active bleeding or visible vessel but there was acute on chronic inflammation, Patient had deformity of the postbulbar duodenal area and I was able to see the 2nd part of the duodenum but there was area of debris and ongoing chronic ulceration inflammation and the endoscope was not advanced beyond this area. Patient had mild gastritis and some old coffee-ground within the stomach. On 03/14/25 x-ray small bowel series was negative for small bowel obstruction. On 03/17/2025 CT head-No evidence of acute intracranial hemorrhage, mass effect or hydrocephalus. Chronic sequelae of microangiopathy and atrophic cortical volume loss. Multifocal chronic lacunar infarcts as outlined above. On on 03/16/25 ultrasound of the was non remarkable. On 03/17/2025 MRI of the brain with the Infarcts involving multiple vascular territories as described. On 03/17/2025 Doppler study of the bilateral upper extremity negative for DVT. On 03/24/2025 gallbladder ultrasound revealed-Gallbladder entirely distended with sludge with gallbladder wall thickening and pericholecystic edema, concerning for cholecystitis. Recommend surgical consultation HIDA scan.Dilated common bile duct measuring 16 mm which can be further evaluated with MRCP.Echogenic liver which can be seen with hepatic steatosis, cirrhosis. Right pleural effusion. MRCP on 03/28/2025 review- Choledocholithiasis in the mid to distal common bile duct predominantly dependently. Mild dilatation of the common bile duct. Correlate with LFTs as the choledocholithiasis could be causing obstruction. Mild dilatation of the gallbladder without definite wall thickening containing cholelithiasis and sludge. Mild cardiomegaly and small bilateral pleural effusions. On 04/03/2025 patient had - Open cholecystectomy. Common bile duct exploration. Intraoperative cholangiogram. Patient has had G-tube and J-tube in place. Patient is s/p open cholecystectomy, common bile duct exploration and intraoperative cholangiogram . Patient's sputum culture revealed stenotrophomonas maltophilia, E coli, presumptive Milady albicans and gallbladder sample revealed Enterococcus faecium VRE. Blood culture no growth, uterine culture no growth Patient is also treated for C diff with the vancomycin and metronidazole. Patient is being discharged with oral linezolid and Augmentin for 7 days. Patient is on liquid diet also on TPN. Surgery cleared the patient to be discharged to SNF with a KWAN drain and T-tube drain in place, with a liquid diet and also continue TPN until p.o. intake improves. Patient is being discharged to SNF. Patient was hemodynamically stable on discharge General Appearance: Alert, Oriented X3 HEENT: Atraumatic, PERRLA, EOMI, Mucous membrane moist/pink Respiratory: Bilateral crackles. Cardiovascular: Regular rate, Normal S1, Normal S2, No murmurs, no chest wall tenderness Abdominal: Surgical wound with dressing on the right upper quadrant with T-tube and KWAN drain, mildly tender, No hepatosplenomegaly, No masses, decreased bowel sounds Extremities: PICC line on the rt upper arm, No clubbing, No cyanosis, No edema, Normal pulses, No tenderness/swelling Skin: No rashes, No breakdown, No significant lesion Neuro: Normal speech, right-sided weakness, Plan of care discussed with Dr. Flower Consults/Reason for consult Patient: JOSSUE PEREZ JR Acct: [id number] : 1975 Loc: [facility] Age/Sex: 49/M Room: 0239T / Bed: A Attending Phy: JOSE F BONILLA RESIDENT Operative Report DATE OF OPERATION: 03/13/25 PROCEDURE: Upper Endoscopy with biopsy. PREOPERATIVE INDICATION: The patient is a 49 -year-old male undergoing endoscopy for melena anemia history of perforated duodenal ulcer for which she underwent surgery earlier this year POSTOPERATIVE DIAGNOSES: 1. 1-2 cm sliding-type hiatal hernia with severe grade C linear erosive esophagitis with esophageal ulcers extending into the distal 15 cm of the esophagus 2. Patient had a persistent duodenal bulb ulcer seen just inside the pyloric opening which was large coalescing with a visible sutures; there was no active bleeding or visible vessel but there was acute on chronic inflammation 3. Patient had deformity of the postbulbar duodenal area and I was able to see the 2nd part of the duodenum but there was area of debris and ongoing chronic ulceration inflammation and the endoscope was not advanced beyond this area 3. Patient had mild gastritis and some old coffee-ground within the stomach PROCEDURE PERFORMED BY: Gurjit Stoddard GI NURSE: Sandra SCOPE: Olympus videoendoscope. ASA CLASS: 3 PREOPERATIVE MEDICATIONS: Mac sedation, Dr. Rios PROCEDURE IN DETAIL: After obtaining an informed consent, the patient was placed on left lateral decubitus position. The patient was then sedated with the above medications. A bite block was placed between his teeth. The endoscope was then passed through the oropharynx, into the esophagus, and through the stomach and pylorus up to the 1st part of the duodenal. Patient had extensive area of ulceration with visible sutures I was able to see the 2nd part of the duodenum and the postbulbar area however the patient had a lot of debris chronic ulceration and deformity I did not advance the endoscope beyond this into the 2nd or 3rd part of the duodenal. Biopsies were obtained On retroflexion the fundus and cardia were normal. There was mild gastritis and some old coffee-ground in the stomach The endoscope was then withdrawn. Patient had a 2 cm sliding-type hiatal hernia with grade C erosive esophagitis There were linear and circumferential esophageal ulceration extending almost throughout the length of the esophagus into the distal 12-15 cm of the esophagus Esophageal biopsies were obtained. The proximal esophagus and oropharynx were otherwise unremarkable. Patient did have some thick respiratory secretions in his posterior pharynx The patient tolerated the procedure well without difficulty. COMPLICATIONS : None SPECIMENS: Gastric biopsies Esophageal biopsies DISPOSITION: Transfer back to the floor Stable PLAN: 1. Await for biopsy result 2. Will place pt on Protonix drip at 8 milligrams/hour 3. Carafate suspension 1 g p.o. 4 times a day, Zofran as needed 4. Consideration for a Gastrografin upper GI x-ray to make sure that there was continuation of contrast without extravasation into the 2nd and 3rd part of the duodenal 5. Advance diet once the patient is an upper GI x-ray is negative and he is able to tolerate diet 6. Patient needs lifelong maintenance with PPI and he was advised to DC NSAIDs smoking alcohol and aspirin GURJIT STODDARD MD Mar 13, 2025 14:23 DICTATED BY:GURJIT STODDARD MD DICTATED DATE/TIME:03/13/25 1423 ELECTRONICALLY SIGNED BY:GURJIT STODDARD MD 03/13/251422 ELECTRONICALLY CO-SIGNED BY: Patient: JOSSUE PEREZ JR Acct: [id number] : 1975 Loc: [facility] Age/Sex: 49/M Room: [address] [place] [address] / Bed: A Attending Phy: MABEL HERRERA DATE OF SURGERY: 04/03/2025 PREOPERATIVE DIAGNOSES: * Choledocholithiasis. * Cholecystitis. POSTOPERATIVE DIAGNOSES: * Adhesions. * Raging cholecystitis. * Chronic cholecystitis. * Common bile duct dilatation. OPERATION PERFORMED: * Open cholecystectomy. * Common bile duct exploration. * Intraoperative cholangiogram. DESCRIPTION OF PROCEDURE: Under general endotracheal anesthesia with the patient's skin prepped and draped, a subcostal incision was made on the right upper abdomen of the patient and the incision was deepened through subcutaneous tissues and muscle into the peritoneal cavity. The right upper quadrant and peritoneal cavity essentially obliterated by adhesions. Numerous loops of bowel adherent to the anterior abdominal wall and to the inferior surface of the liver. Tedious careful dissection was undertaken in order to visualize the gallbladder, which was massively distended, chronically inflamed, and surrounded by much inflammatory reaction and scarring. The gallbladder was aspirated of bile, which was sent for cultures and sensitivities, and subsequently meticulous dissection of the infundibular portion of the gallbladder ensued demonstrating a cystic duct, which was almost totally occluded by the twisting of the gallbladder and a common bile duct dilated to approximately 1.5 cm in diameter. The cystic artery was identified, circumferentially dissected, ligated, and divided. Subsequently, the cystic duct was similarly dissected with meticulous tedious dissection due to much inflammation and scarring. The cystic duct was then occluded with metallic strips and divided. 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 Following removal of the gallbladder from the field, the common duct was identified and cleansed of scar tissue. Two stay sutures of 3-0 Prolene were placed and a choledochotomy was fashioned measuring approximately 1.5 cm in length. Through the choledochotomy, the common duct was explored with stone forceps as well as with Patricia catheters. Stone debris was obtained too small to submit, as it disintegrated with irrigation. Following passage of a 4 mm dilator through the sphincter into the bowel, a T-tube #18 [place] was fashioned and placed into the choledochotomy. The choledochotomy was then closed using 3-0 Monocryl suture. The suture line was tested for water tightness, which indeed was proven. There was no evidence of extravasation. The T-tube was then exteriorized through the anterior abdominal wall and a T-tube cholangiogram was obtained (x2) demonstrating a stricture at the distal common bile duct, having no evidence of remaining stones and contrast flowing freely into the duodenum. The choledochotomy was then closed using 3-0 Monocryl suture with the stay sutures of Prolene 3-0 were removed from the wall of the gallbladder. The right upper quadrant was profusely irrigated. A Wisam-Hensley drain was inserted into the right upper quadrant and exteriorized separately. The T-tube having been exteriorized through separate incision and the Wisam-Hensley drain were secured with interrupted 2-0 nylon sutures. Following assurance of complete hemostasis and report of accurate needle and sponge count by the nurses, the abdomen was closed using #1 double-stranded PDS suture for approximation of the muscle and fascia. Subcutaneous tissues were approximated using Monocryl suture. Skin approximating metallic clips. The patient remained hemodynamically stable throughout the procedure, left the operating room following an accurate needle and sponge count. An attempt to get communicating with his , Anastasia, at [phone] went unanswered. Lobo Velasco MD PF/EDGAR/LEONOR TID: [id number] RECEIPT: [id number] DICTATED BY:LOBO VELASCO MD DICTATED DATE/TIME:04/03/25 0824 ELECTRONICALLY SIGNED BY:LOBO VELASCO MD 04/07/25 1032 ELECTRONICALLY CO-SIGNED BY: Operations or Procedures [place] [address] Ph: [phone] DIAGNOSTIC IMAGING Diagnostic Imaging Report : [id number] Signed PATIENT: JOSSUE PEREZ JRACCT: [id number] UNIT: [id number] : 1975 [facility]GE / SEX: 49 / M ADM STATUS: ADM IN SERVICE ORDERING PHYSICIAN: GOPAL VILLANUEVA RESIDENT PROCEDURE(s): ABPL - CT AB PEL WO CON-NO ORAL OR IV REASON: gi bleed and hx of surgery for ulcer ORDER NUMBER(s): [id number], ACCESSION NUMBER(s): [id number] Exam: CT CT AB PEL WO CON-NO ORAL OR IV History: GI bleed and hx of surgery for ulcer. Comparison Study: CT CHST AB PEL WO CON-NO IV/ORAL on DOS: 11/18/24. Technique: Multidetector spiral CT of the abdomen and pelvis was performed from lung bases to pubic symphysis. Imaging was performed without intravenous contrast. Coronal and sagittal multiplanar reformats were obtained from the axial data set by the technologist. Radiation Dose : 1. Abdomen/Pelvis: CTDIvol 7.62 mGy, DLP 455.0 mGy*cm. Findings: Evaluation of vasculature and solid organs is limited due to lack of intravenous contrast use. Lung Bases: There is paraseptal emphysema in the lung apices. Bilateral lower lobe atelectasis. Visualized portions of the heart and pericardium are unremarkable. Liver: The liver is normal in size. No focal lesions. Gallbladder and Biliary Tree: The gallbladder contains a gallstone. No intrahepatic or extrahepatic biliary ductal dilatation. Spleen: Unremarkable Pancreas: The pancreas is grossly unremarkable. Adrenal Glands: Unremarkable Kidneys: Left renal atrophy. No intrarenal calculi. No hydronephrosis. GI tract: There is fluid and gas distending the stomach. Fluid and gas-filled small bowel loops without significant dilatation or transition point. No mucosal thickening. There is copious stool throughout the colon. There is stool distending the rectal vault with mild circumferential thickening of the rectum measuring 3 mm. Appendix contains an appendicolith and is normal in caliber with no inflammatory changes. Peritoneum/mesentery/retroperitoneum. No evidence of free intraperitoneal air. No ascites. No evidence of suspicious lymphadenopathy. Abdominal Wall: Unremarkable. Vasculature: The visualized abdominal aorta is normal in size and caliber. Evaluation of abdominal and pelvic vessels is limited due to lack of intravenous contrast. Nondiagnostic evaluation for GI bleed in the absence of intravenous contrast. Urinary Bladder: Grossly unremarkable for degree of distention. Pelvic Organs: Unremarkable Musculoskeletal: No aggressive focal bony lesions, acute fractures or dislocation. IMPRESSION: 1. No evidence of acute abdominopelvic abnormalities. Nondiagnostic evaluation for GI bleed due to lack of intravenous contrast. 2. Constipation and fecal impaction in the rectum with mild mucosal thickening of the rectum. 3. Upstream dilatation of small-bowel loops and the stomach possibly reflecting a low-grade distal partial obstruction due to fecal retention. 4. Cholelithiasis. 5. Bilateral lower lobe atelectasis. ATED BY: ANJALI LOVE MD DICTATED DATE/TIME: 03/12/25545 SIGNED BY: ANJALI LOVE MD SIGNED DATE/TIME: 03/12/25545 CC: [place] [address] Ph: [phone] DIAGNOSTIC IMAGING Diagnostic Imaging Report : [id number] Signed PATIENT: JOSSUE PEREZ JRACCT: [id number] UNIT: [id number] : 1975 LOC: OVERFLOW ROOM / BED: [facility] / A AGE / SEX: 49 / M ADM STATUS: ADM IN SERVICE 0025 ORDERING PHYSICIAN: GOPAL VILLANUEVA RESIDENT PROCEDURE(s): CXRP - CHEST PORTABLE REASON: sob ORDER NUMBER(s): [id number], ACCESSION NUMBER(s): [id number] CHEST RADIOGRAPH Indication: sob Technique: Single frontal view of the chest was obtained COMPARISON: CT CHEST WITHOUT CONTRAST on DOS: 01/21/25, XY CHEST TWO VIEWS ROUTINE on DOS: 12/24/24, XY CHEST XRAY 1 VIEW on DOS: 12/01/24, XY CHEST XRAY 1 VIEW on DOS: 11/18/24, XY CHEST XRAY 1 VIEW on DOS: 11/18/24 FINDINGS: Lines and Tubes: None Lungs: Mild chronic appearing left basilar pulmonary airspace disease and possible small pleural effusion. No pneumothorax. Cardiomediastinal contours: Unremarkable Bones: Unremarkable IMPRESSION: 1. Mild chronic appearing left basilar pulmonary airspace disease and possible small pleural effusion. ATED BY: KWASI BLACK MD DICTATED DATE/TIME: 03/12/25430 SIGNED BY: KWASI BLACK MD SIGNED DATE/TIME: 03/12/25430 CC: [place] [address] Ph: [phone] DIAGNOSTIC IMAGING Diagnostic Imaging Report : [id number] Signed PATIENT: JOSSUE PEREZ JRACCT: [id number] UNIT: [id number] : 1975 [facility]GE / SEX: 49 / M ADM STATUS: ADM IN SERVICE ORDERING PHYSICIAN: GOPAL VILLANUEVA RESIDENT PROCEDURE(s): LIVUS - LIVER REASON: rule out liver cirrhosis ORDER NUMBER(s): [id number], ACCESSION NUMBER(s): [id number] INDICATION: rule out liver cirrhosis TECHNIQUE: Multiple real-time sonographic images were obtained of the right upper quadrant. COMPARISON: US GALLBLADDER on DOS: 10/30/24, XY PERCUTANEOUS CHOLANGIO on DOS: 10/10/24, US LIVER on DOS: 10/09/24 FINDINGS: The liver demonstrates normal homogeneous echotexture without focal mass lesions. The liver measures 13.8 cm. Normal hepatopetal portal venous flow appreciated. No evidence of pleural effusion or abdominal ascites. There is no intrahepatic or extrahepatic ductal dilatation. The common duct measures 0.7 cm. Cholelithiasis. The gallbladder wall measures 0.2 cm and is within normal limits. Negative sonographic zimmer's sign. The pancreas and right kidney are not well visualized due to overlying bowel gas. IMPRESSION: 1. Cholelithiasis. 2. No sonographic evidence of acute cholecystitis. ATED BY: KWASI BLACK MD DICTATED DATE/TIME: 03/12/257 SIGNED BY: KWASI BLACK MD SIGNED DATE/TIME: 03/12/25436 CC: [place] [address] Ph: [phone] DIAGNOSTIC IMAGING Diagnostic Imaging Report : [id number] Signed PATIENT: JOSSUE PEREZ JRACCT: [id number] UNIT: [id number] : 1975 LOC: [facility] AGE / SEX: 49 / M ADM STATUS: ADM IN SERVICE 1000 ORDERING PHYSICIAN: GURJIT STODDARD MD PROCEDURE(s): SMBG - SMALL BOWEL SERIES-W GASTROGRA REASON: HX of perforated duodenal ulcer s/p surgical repair ORDER NUMBER(s): [id number], ACCESSION NUMBER(s): [id number] Procedure: XY SMALL BOWEL SERIES-W GASTROGRA Reason for study/Clinical History: HX of perforated duodenal ulcer s/p surgical repair Comparison Study: CT abdomen and pelvis from 03/12/2025. Small bowel series with gastrografin from 11/25/2024 Technique: Single contrast small bowel series performed. 100 mL Gastrografin administered orally. FINDINGS/IMPRESSION: Initial airplane flight attendant view of the abdomen and pelvis appears demonstrates no acute process. Contrast is identified within the colon by 3 hours. No evidence of bowel obstruction. ATED BY: RONAK FROST MD DICTATED DATE/TIME: 03/14/251633 SIGNED BY: RONAK FROST MD SIGNED DATE/TIME: 03/14/251633 CC: [place] [address] Ph: [phone] DIAGNOSTIC IMAGING Diagnostic Imaging Report : [id number] Signed PATIENT: JOSSUE PEREZ JRACCT: [id number] UNIT: [id number] : 1975 LOC: [facility] ROOM / BED: 0239T / A AGE / SEX: 49 / M ADM STATUS: ADM IN SERVICE 0833 ORDERING PHYSICIAN: DAYANARA BLACKWOOD MD PROCEDURE(s): CXRP - CHEST PORTABLE REASON: edema ORDER NUMBER(s): [id number], ACCESSION NUMBER(s): [id number] XY CHEST PORTABLE, HISTORY: edema COMPARISON: XY CHEST XRAY 1 VIEW on DOS: 03/13/25, XY CHEST XRAY 1 VIEW on DOS: 03/13/25, XY CHEST PORTABLE on DOS: 03/12/25 XY CHEST XRAY 1 VIEW on DOS: 03/13/25, XY CHEST XRAY 1 VIEW on DOS: 03/13/25, XY CHEST PORTABLE on DOS: 03/12/25 TECHNICAL DATA: 1 view of the chest was obtained. FINDINGS: Lines and tubes: None Cardiomediastinal silhouette: normal Pulmonary vasculature: Prominent Lung expansion: normal Lung airspace: normal Lung interstitium: normal Pleura: normal Pneumothorax: no Bones: Unremarkable Other: no IMPRESSION: No acute intrathoracic abnormality. ATED BY: KASI BLACK MD DICTATED DATE/TIME: 03/15/25950 SIGNED BY: KASI BLACK MD SIGNED DATE/TIME: 03/15/25950 CC: [place] [address] Ph: [phone] DIAGNOSTIC IMAGING Diagnostic Imaging Report : [id number] Signed PATIENT: JOSSUE PEREZ JRACCT: [id number] UNIT: [id number] : 1975 LOC: [facility] ROOM / BED: 0239T / A AGE / SEX: 49 / M ADM STATUS: ADM IN SERVICE 1214 ORDERING PHYSICIAN: RONALDO RAWLS PROCEDURE(s): KIDUS - KIDNEY REASON: CKD ORDER NUMBER(s): [id number], ACCESSION NUMBER(s): [id number] US KIDNEY HISTORY: CKD COMPARISON: US LIVER on DOS: 03/12/25, XY KUB ABDOMEN SINGLE VIEW on DOS: 11/23/24, XY KUB ABDOMEN SINGLE VIEW on DOS: 11/21/24 TECHNIQUE: Transverse and longitudinal grayscale and color doppler images were obtained of the kidneys and bladder. FINDINGS: Right kidney: Size: 8.6 cm Cortical thickness: Normal Echogenicity: Normal Stones: None Masses: None Hydronephrosis: None Ureters: Not well visualized. Other: None Bladder: Barrios noted in the bladder. Other: None. IMPRESSION: Unremarkable renal ultrasound. ATED BY: KASI BLACK MD DICTATED DATE/TIME: 03/16/251309 SIGNED BY: KASI BLACK MD SIGNED DATE/TIME: 03/16/251309 CC: [place] [address] Ph: [phone] DIAGNOSTIC IMAGING Diagnostic Imaging Report : [id number] Signed PATIENT: JOSSUE PEREZ JRACCT: [id number] UNIT: [id number] : 1975 LOC: [facility] ROOM / BED: [address] [place] [address] AGE / SEX: 49 / M ADM STATUS: ADM IN SERVICE 06 ORDERING PHYSICIAN: SILAS STAHL RESIDENT PROCEDURE(s): KUB - KUB ABDOMEN SINGLE VIEW REASON: R/O free air/obstruction ORDER NUMBER(s): [id number], ACCESSION NUMBER(s): [id number] Exam: XY KUB ABDOMEN SINGLE VIEW Indication: R/O free air/obstruction Comparison: Same day chest radiograph, small-bowel series 03/14/2025 Technique: 2 views Findings: Nonobstructive bowel gas pattern. Dense enteric contrast throughout a majority of large bowel loops, [id number]-[id number]-[id number] burden in the rectum. Patient positioning is not labeled; no obvious free air. The lower chest is better assessed on same day comparison chest radiograph. No acute osseous finding. Impression: 1. Nonobstructive bowel gas pattern. 2. No obvious free air although patient positioning is indeterminate, and probably supine which significantly decreases sensitivity. ATED BY: DESIRE EGAN MD DICTATED DATE/TIME: 03/17/25547 SIGNED BY: DESIRE EGAN MD SIGNED DATE/TIME: 03/17/25547 CC: [place] [address] Ph: [phone] DIAGNOSTIC IMAGING Diagnostic Imaging Report : [id number] Signed PATIENT: JOSSUE PEREZ JRACCT: [id number] UNIT: [id number] : 1975 LOC: [facility] ROOM / BED: [address] [place] [address] / A AGE / SEX: 49 / M ADM STATUS: ADM IN SERVICE 52 ORDERING PHYSICIAN: LEANDRO BLACK MD PROCEDURE(s): MBHL - BRAIN HEAD WO CONTRAST REASON: CVA ORDER NUMBER(s): [id number], ACCESSION NUMBER(s): [id number] PROCEDURE: MRI BRAIN HEAD WO CONTRAST INDICATION: CVA EXAM DATE: 03/16/2025 09:53 PM COMPARISON: CT HEAD WITHOUT CONTRAST on DOS: 03/17/25, MRI BRAIN HEAD WO CONTRAST on DOS: 11/01/24, CT HEAD WITHOUT CONTRAST on DOS: 10/24/24, CT HEAD WITHOUT CONTRAST on DOS: 10/04/24, MRI BRAIN HEAD WO CONTRAST on DOS: 08/23/23 TECHNIQUE: MRI of the brain without intravenous contrast. FINDINGS: Multiple areas of diffusion restriction throughout the medial right occipital lobe, posterior left occipital lobe, and left lopes radiata white matter tracts. Few additional tiny foci of diffusion restriction at the anterior right parietal cortex. There is no evidence of acute intracranial hemorrhage, extra-axial collection, mass effect, midline shift, herniation or hydrocephalus. The ventricles, sulci and cisterns appear age appropriate. Moderate generalized cerebral volume loss with scattered foci of increased T2/FLAIR signal in the subcortical, deep, and periventricular white matter of both cerebral hemispheres compatible with iqiw-zk-fjcojwqd chronic small vessel ischemia. Multiple remote lacunar infarcts within the deep white matter both cerebral hemispheres. Few tiny foci of remote microhemorrhage throughout the brainstem and both cerebral hemispheres. The major vascular flow voids are present. The visualized paranasal sinuses and mastoid air cells are clear. The surrounding soft tissues and osseous structures are unremarkable. IMPRESSION: Infarcts involving multiple vascular territories as described. ATED BY: MARIA TERESA PAVON MD DICTATED DATE/TIME: 03/17/251710 SIGNED BY: MARIA TERESA PAVON MD SIGNED DATE/TIME: 03/17/251710 CC: [place] [address] Ph: [phone] DIAGNOSTIC IMAGING Diagnostic Imaging Report : [id number] Signed PATIENT: JOSSUE PEREZ JRACCT: [id number] UNIT: [id number] : 1975 LOC: [facility] ROOM / BED: [address] [place] [address] / AGE / SEX: 49 / M ADM STATUS: ADM IN SERVICE 114 ORDERING PHYSICIAN: SKY DASH RESIDENT PROCEDURE(s): BUDVT - Bi Lat Upper DVT REASON: To rule out DVT ORDER NUMBER(s): [id number], ACCESSION NUMBER(s): [id number] BILATERAL UPPER EXTREMITY VENOUS DUPLEX REASON FOR EXAMINATION: Bilateral upper extremity pain and edema. COMPARISON: US RT UPPER DVT on DOS: 11/09/24, US RT UPPER DVT on DOS: 11/02/24, US BILAT LOW EXT ART DUPLEX on DOS: 10/13/24, US BI LAT UPPER DVT on DOS: 10/11/24 TECHNIQUE: Using real-time freeze-frame technique with a high-frequency transducer, multiple longitudinal and transverse sections were obtained. Simultaneous color flow and spectral Doppler imaging was performed. FINDINGS: RIGHT: Deep veins Internal jugular vein: Partially obscured by a bandage. Compressible. No thrombus identified. Expected Doppler flow. Subclavian vein: Obscured by bandages. Axillary vein: Compressible. No thrombus identified. Expected Doppler flow. Brachial vein: Compressible. No thrombus identified. Expected Doppler flow. Radial vein: Compressible. No thrombus identified. Expected Doppler flow. Ulnar vein: Compressible. No thrombus identified. Expected Doppler flow. Superficial veins Cephalic vein: Occlusive thrombus Basilic vein: Occlusive thrombus LEFT: Deep veins Internal jugular vein: Compressible. No thrombus identified. Expected Doppler flow. Subclavian vein: Expected Doppler flow. Axillary vein: Compressible. No thrombus identified. Expected Doppler flow. Brachial vein: Compressible. No thrombus identified. Expected Doppler flow. Radial vein: Compressible. No thrombus identified. Expected Doppler flow. Ulnar vein: Compressible. No thrombus identified. Expected Doppler flow. Superficial veins Cephalic vein: Occlusive thrombus Basilic vein: Occlusive thrombus IMPRESSION: No evidence of deep venous thrombosis. There is occlusive thrombus in bilateral cephalic and basilic veins. Correlate clinically for superficial thrombophlebitis. ITIAN [employer]ERAPE[employer]IC DICTATED BY: KEN PERERA MD DICTATED DATE/TIME: 03/17/25 1723 SIGNED BY: KEN PERERA MD SIGNED DATE/TIME: 03/18/25 1126 CC: [place] [address] Ph: [phone] DIAGNOSTIC IMAGING Diagnostic Imaging Report : [id number] Signed PATIENT: JOSSUE PEREZ JRACCT: [id number] UNIT: [id number] : 1975 LOC: [facility] ROOM / BED: [address] [place] [address] AGE / SEX: 49 / M ADM STATUS: ADM IN SERVICE 0400 ORDERING PHYSICIAN: SKY DASH RESIDENT PROCEDURE(s): CXRP - CHEST PORTABLE REASON: Mechanical ventilation ORDER NUMBER(s): [id number], ACCESSION NUMBER(s): [id number] CHEST RADIOGRAPH Indication: Mechanical ventilation Technique: Single frontal view of the chest was obtained COMPARISON: XY CHEST XRAY 1 VIEW on DOS: 03/22/25, XY CHEST PORTABLE on DOS: 03/21/25, XY CHEST PORTABLE on DOS: 03/20/25, XY CHEST PORTABLE on DOS: 03/19/25, XY CHEST PORTABLE on DOS: 03/18/25 FINDINGS: Lines and Tubes: Slight interval retraction of the endotracheal tube such that the tip now projects approximately 4.2 cm above the level of the dunia. Remaining lines and tubes unchanged. Lungs: Stable appearing small left pleural effusion. Mild diffuse increased prominence of the pulmonary vasculature. No pneumothorax. Cardiomediastinal contours: Unremarkable Bones: Unremarkable IMPRESSION: 1. Slight interval retraction of the endotracheal tube such that the tip now projects approximately 4.2 cm above the level of the dunia. Remaining lines and tubes unchanged. 2. Small left pleural effusion and diffuse increased prominence of the pulmonary vasculature. ATED BY: KWASI BLACK MD DICTATED DATE/TIME: 03/23/25439 SIGNED BY: KWASI BLACK MD SIGNED DATE/TIME: 03/23/25439 CC: [place] [address] Ph: [phone] DIAGNOSTIC IMAGING Diagnostic Imaging Report : [id number] Signed PATIENT: JOSSUE PEREZ JRACCT: [id number] UNIT: [id number] : 1975 LOC: [facility] ROOM / BED: [address] [place] [address] / A AGE / SEX: 49 / M ADM STATUS: ADM IN SERVICE 15 ORDERING PHYSICIAN: SILAS STAHL PROCEDURE(s): GBUS - GALLBLADDER REASON: R/O cholecystitis or CBD dilation ORDER NUMBER(s): [id number], ACCESSION NUMBER(s): [id number] Technique: Real-time ultrasound imaging of the abdomen was performed with grayscale and color Doppler. Indication: R/O cholecystitis or CBD dilation Comparison: US LIVER on DOS: 03/12/25, US GALLBLADDER on DOS: 10/30/24, US LIVER on DOS: 10/09/24 Findings: Liver measures 14 cm. It is increased in echogenicity and echotexture without focal mass. Portal vein is normal in caliber and demonstrates normal hepatopetal flow. Gallbladder is completely distended with sludge. There is gallbladder wall thickening to 6 mm. There is pericholecystic edema. The common bile duct measures 16 mm. No intrahepatic biliary ductal dilatation. The right kidney measures 10.3 cm. There is no hydronephrosis or sonographic evidence of nephrolithiasis. The pancreas is obscured. Right pleural effusion. Impression: Gallbladder entirely distended with sludge with gallbladder wall thickening and pericholecystic edema, concerning for cholecystitis. Recommend surgical consultation HIDA scan. Dilated common bile duct measuring 16 mm which can be further evaluated with MRCP. Echogenic liver which can be seen with hepatic steatosis, cirrhosis. Right pleural effusion ATED BY: MEIR DE LA TORRE MD DICTATED DATE/TIME: 03/24/25 154 SIGNED BY: MEIR DE LA TORRE MD SIGNED DATE/TIME: 03/24/25 154 CC: [address] [address] Ph: [phone] DIAGNOSTIC IMAGING Diagnostic Imaging Report : [id number] Signed PATIENT: JOSSUE PEREZ JRACCT: [id number] UNIT: [id number] : 1975 LOC: [facility] ROOM / BED: [facility] / A AGE / SEX: 49 / M ADM STATUS: ADM IN SERVICE 0559 ORDERING PHYSICIAN: SILAS STAHL PROCEDURE(s): MRCP - MRCP MRI REASON: R/O CHOLEDOCHOLITHIASIS ORDER NUMBER(s): [id number], ACCESSION NUMBER(s): [id number] CLINICAL HISTORY: R/O CHOLEDOCHOLITHIASIS TECHNIQUE: MRI and MRCP of the abdomen was performed without gadolinium. 3D reconstructed images were created under concurrent radiologist supervision and archived on the PACS system. WID: COMPARISON: US GALLBLADDER on DOS: 03/24/25 FINDINGS: Lower Thorax: Shifting of the mediastinal contents to the left. There is mild cardiomegaly. Small bilateral pleural effusions and dependent consolidations of the bilateral lower lungs, greater on the left. Liver and Biliary system: Normal-sized liver. No definite hepatic lesion. There is mild dilatation of the common bile duct measuring up to 1 cm on series 2, image 14. There is multiple predominantly dependent choledocholithiasis in the mid and lower portion of the common bile duct. There is a mildly distended gallbladder containing sludge and cholelithiasis. No definite gallbladder wall thickening. Spleen: Unremarkable. Adrenal Glands and Kidneys: Unremarkable. Pancreas and Retroperitoneum: Unremarkable. Aorta and Major Vessels: Abdominal aorta and visualized iliac vessels are normal caliber. Bowel, Mesentery and Peritoneal space: Normal caliber bowel loops. No fluid collection. Abdominal wall and Osseous Structures: Mild thoracic and lumbar spondylosis. IMPRESSION: 1. Choledocholithiasis in the mid to distal common bile duct predominantly dependently. 2. Mild dilatation of the common bile duct. Correlate with LFTs as the choledocholithiasis could be causing obstruction. 3. Mild dilatation of the gallbladder without definite wall thickening containing cholelithiasis and sludge. 4. Mild cardiomegaly and small bilateral pleural effusions. 5. Dependent consolidation in the bilateral lower lobes, greater on the left, likely atelectasis though a component of pneumonia could contribute to this appearance. This is not optimally evaluated by MRI. ATED BY: RONAK FROST MD DICTATED DATE/TIME: 03/28/251718 SIGNED BY: RONAK FROST MD SIGNED DATE/TIME: 03/28/251718 CC: [place] [address] Ph: [phone] DIAGNOSTIC IMAGING Diagnostic Imaging Report : [id number] Signed PATIENT: JOSSUE PEREZ JRACCT: [id number] UNIT: [id number] : 1975 LOC: [facility] ROOM / BED: [address] [place] [address] / A AGE / SEX: 49 / M ADM STATUS: ADM IN SERVICE ORDERING PHYSICIAN: LOBO VELASCO MD PROCEDURE(s): OPCHL - CHOLANGIOGRAM OPERATIVE REASON: INTRAOPERATIVE IMAGING ORDER NUMBER(s): [id number], ACCESSION NUMBER(s): [id number] C-ARM FLUOROSCOPY: PROCEDURE: Cholangiogram FINDINGS: Spot intraoperative C arm radiographs demonstrating Cholangiogram with filling defect noted in the common bile duct.. IMPRESSION: Please refer to surgical report for detailed findings. ATED BY: MARIA TERESA PAVON MD DICTATED DATE/TIME: 04/03/251034 SIGNED BY: MARIA TERESA PAVON MD SIGNED DATE/TIME: 04/03/251034 CC: [place] [address] Ph: [phone] DIAGNOSTIC IMAGING Diagnostic Imaging Report : [id number] Signed PATIENT: JOSSUE PEREZ JRACCT: [id number] UNIT: [id number] : 1975 LOC: [facility] ROOM / BED: 0101-CC / A AGE / SEX: 49 / M ADM STATUS: ADM IN SERVICE 0945 ORDERING PHYSICIAN: LEANDRO BLACK MD PROCEDURE(s): MBHL - BRAIN HEAD WO CONTRAST REASON: New right hemiplegia ORDER NUMBER(s): [id number], ACCESSION NUMBER(s): [id number] EXAMINATION: MRI BRAIN HEAD WO CONTRAST INDICATION: New right hemiplegia COMPARISON: MRI BRAIN HEAD WO CONTRAST on DOS: 03/16/25. TECHNIQUE: Multiplanar, multisequence magnetic resonance imaging of the brain was performed without the use of intravenous contrast. FINDINGS: There is persistent although diminished hyperintensity on the diffusion-weighted sequence in the right medial parieto-occipital lobe and left lopes radiata compatible with recent infarcts. Previously seen restricted diffusion in the left occipital lobe has resolved. No evidence of new restricted diffusion to suggest new infarct since prior MRI from 03/17/2025. No intracranial hemorrhage. No mass effect. There is periventricular/deep white matter T2/FLAIR hyperintensity is nonspecific, but most commonly associated with chronic microvascular disease. The ventricles and sulci are normal in size for age. Clear basal cisterns. Flow voids in the major intracranial vessels are maintained. No abnormality of the orbits. There is a mucous retention cysts in the right maxillary sinus. There is trace fluid in the bilateral mastoid air cells. No abnormality of the visualized osseous structures and extracranial soft tissues. IMPRESSION: 1. No acute infarct, intracranial hemorrhage, mass effect, or hydrocephalus. 2. Persistent although diminished hyperintensity on the diffusion-weighted sequence in the right medial parieto-occipital lobe and left lopes radiata compatible with recent infarcts. ATED BY: ANJALI LOVE MD DICTATED DATE/TIME: 04/07/251124 SIGNED BY: ANJALI LOVE MD SIGNED DATE/TIME: 04/07/25 112 CC: Condition at Discharge: Stable Final Diagnosis/Problems List Acute metabolic encephalopathy secondary to acute ischemic stroke; Acute hypoxic respiratory failure resolved; able to make decisions; alert and oriented X3 Acute or subacute ischemic stroke Hypertensive emergency Acute anxiety Chronic diastolic heart failure with preserved ejection fraction Acute hypoxic respiratory failure; to continue oxygen therapy as indicated; currently on 2 L/min via nasal cannula S/P extubation Acute GI bleed upper vs lower Partial small Intestinal obstruction likely secondary to fecal impaction. Cholelithiasis S/P open cholecystectomy with common bile duct exploration with intrahepatic cholangiogram . Presents of J-tube and G-tube C diff positive Elevated alkaline phosphatase GIOVANI on CKD likely hemodynamically mediated/VMN resolved Hypernatremia Hypokalemia Hypophosphatemia Severe microcytic hypochromic anemia due to GI bleeding Iron deficiency due to above Bilateral superficial thrombophlebitis Acute C diff infection Nicotine dependence GI bleeding Discharge Disposition: [facility] Facility Discharge Instruct/Medications Diet: Cardiac 2g Na,low cholest, Renal Activity: See Comment Activity comment: Patient on fall risk Follow Up/Referral: MD at SNF Follow up with the surgeon Dr. Velasco in 2 weeks Medications: As prescribed Scheduled Escitalopram Oxalate (Escitalopram Oxalate), 1 TAB PO DAILY, (Reported) Hydralazine HCl (Hydralazine HCl), 25 MG PO BID Labetalol HCl (Labetalol HCl), 200 MG PO BID Nifedipine (Nifedipine Er), 2 TAB PO DAILY Pantoprazole Sodium Sesquihydr (Protonix), 40 MG PO BID Sucralfate (Carafate), 1 GM OR ACHS Discharge Statement: "Patient was advised to return to the ER or call 911 if any headaches, dizziness, shortness of breath, chest pain, abdominal pain, bleeding, fevers, or worsening of medical condition. Patient was counseled about treatment plan, medications, possible side effects, patientverbalized understanding. All questions were answered to the best of my ability. This discharge took greater then 30 minutes in planning, reviewing documentation, counseling the patient, and discussing with other team members." ASSESSMENT ASSESSMENT Assessment Acute metabolic encephalopathy S/P open cholecystectomy with common bile duct exploration with intrahepatic cholangiogram . GI bleeding Date of Service: Apr 10, 2025 Billing Provider: CRISTA FLOWER MD Common Visit Codes: 69413-EXM/OBS DISCH DAY >30min KWASI MILLAN RESIDENT Apr 10, 2025 12:25 CRISTA FLOWER MD Apr 19, 2025 19:57
--- NOTE | 2025-04-10 14:16 | DVHPN2 ---
Progress Note - Dictate Date Seen: Apr 10, 2025 Medical Necessity Reason Pt with a Central, PICC or Fol: Yes The following are medically ne: PICC Line, Barrios Catheter vital signs Vital Sign Date Time Temp Pulse Resp B/P (MAP) Pulse Ox O2 Delivery O2 Flow Rate FiO2 04/10/25 11:25 103 16 100 04/10/25 11:20 Room Air* 0 21 04/10/25 10:15 142/82 04/10/25 09:00 97.6 97.6 Total Intake and Output 04/09/25 04/09/25 04/10/25 15:00 23:00 07:00 Intake Total 450 ml 740 ml 1750 ml Output Total 1600 ml 1100 ml Balance 450 ml -860 ml 650 ml medications Current Medications Medications Dose Ordered Sig/Wally Route Start Time Stop Time Status Last Admin Dose Admin Diagnostic Test (Pha) 1 strip Q6HR 03/16/25 18:00 04/10/25 12:00 1 STRIP Insulin Human Regular FOLLOW SLIDING SCALE Q6HR SC 03/16/25 18:00 04/10/25 11:44 2 UNITS Dextrose 50 ml UD IV 03/16/25 17:15 Folic Acid 1 mg/ Dextrose 50.2 ml @ 200.8 mls/ hr DAILY INJ 03/17/25 10:00 04/10/25 10:00 200.8 MLS/HR Thiamine HCl 100 mg DAILY IV 03/18/25 10:00 04/10/25 09:15 100 MG Atorvastatin Calcium 40 mg HS PO 03/17/25 22:00 Hold Sucralfate 1 gm QID@0600,1130,1700,2200 GT 03/23/25 17:00 04/10/25 06:14 1 GM Pantoprazole Sodium 40 mg BID IV 03/26/25 22:00 04/10/25 09:36 40 MG Levalbuterol HCl 0.625 mg Q6HR NEB 03/28/25 12:00 04/10/25 11:20 0.625 MG Nicotine 1 patch DAILY TD 03/29/25 10:00 04/10/25 09:18 1 PATCH Lorazepam 0.5 mg [id number] PRN IV 03/28/25 19:30 04/07/25 04:09 0.5 MG Clonidine HCl 0.2 mg TID PO 03/29/25 14:00 Hold 04/02/25 14:57 0.2 MG Losartan Potassium 100 mg DAILY PO 03/30/25 10:00 04/10/25 09:16 100 MG Ondansetron HCl 4 mg Q4HPRN PRN IV 04/03/25 10:00 04/07/25 18:10 4 MG Amino Acids 0 ml @ 0 mls/hr PER PHARMACY IV 04/03/25 10:00 Labetalol HCl 5 mg Q4HP PRN IV 04/03/25 11:30 04/10/25 09:14 5 MG Hydromorphone HCl 0.5 mg Q4HPRN PRN IV 04/03/25 11:30 04/09/25 22:52 0.5 MG Lidocaine HCl 0.5 ml ONCE PRN ID 04/03/25 16:45 04/03/25 17:30 0.5 ML Sodium Chloride 10 ml QSHIFT@10,22 IV 04/03/25 22:00 04/10/25 10:00 10 ML Enteral Nutritional Formula 240 ml TIDWM PO 04/06/25 08:00 04/10/25 13:15 240 ML Lactated Ringer's 1,000 ml @ 75 mls/hr [id number] IV 04/07/25 13:00 04/10/25 06:14 75 MLS/HR Fat Emulsion Intravenous 150 ml/Sodium Chloride 60 meq/ Potassium Chloride 10 meq/ Potassium Acetate 20 meq/Potassium Phosphate 11 meq/ Calcium Gluconate 2.3 meq/Magnesium Sulfate 16 meq/ Multivitamins 10 ml/Chromium/ Copper/Manganese/ Zinc 1 ml/Amino Acids/Dextrose 1,502.4462 ml @ 63 mls/hr [id number] IV 04/09/25 22:00 04/10/25 21:59 04/09/25 22:54 63 MLS/HR Fat Emulsion Intravenous 150 ml/Sodium Chloride 80 meq/ Potassium Acetate 30 meq/Potassium Phosphate 22 meq/ Calcium Gluconate 2.3 meq/Magnesium Sulfate 14 meq/ Multivitamins 10 ml/Chromium/ Copper/Manganese/ Zinc 1 ml/Amino Acids/Dextrose 1,509.4462 ml @ 62 mls/hr [id number] IV 04/10/25 22:00 04/11/25 21:59 Amoxicillin/ Clavulanate Potassium 875 mg Q12HR PO 04/10/25 13:41 Linezolid 600 mg BID PO 04/10/25 13:41 laboratory and microbiology Laboratory Tests 04/10/25 05:53 Test 04/10/25 05:53 Range/Units Serum Glucose 112 H 74-106 mg/dL Assessment/Plan Impression Acute hypoxemic respiratory failure Multiple strokes GI bleed Anemia GIOVANI Patient seen and examined Events S/p d/grade Low oxygen requirements On 2 liters nasal cannula TPN S/p cholecystectomy Labs and imaging reviewed Management Supplemental oxygen Titrate to maintain sats 90% or above Incentive spirometry Aspiration precautions Continue antibiotics F/u cultures Bronchodilators Monitor renal function Monitor electrolytes Supplement as needed Monitor hemoglobin F/u GI DVT prophylaxis Dietary Evaluation Review Recommendations by RD: Increase Calorie Intake, PPN/TPN Comments: Pt meets criteria 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 based on severe wt loss 35lb/24% in 5 month, intake <50% estimated requirement x 5 days, severe muscle wasting and fat depletion Nutrition Recommendation: 1) PPN/TPN if NPO continues 2) Advance to soft diet as medically feasible 3) Ensure Enlive 240ml TID if pt resumes PO diet 4) Monitor NPO status, lab values, weight trend, and I/O Expected Outcomes/Goals: Intake to meet >75% estimated needs GI symptoms to improve Fu 2-3 days Food and Nutrition Intake (Sev: <50% est energy req 5days Interpretation of weight loss: >10% in 6 months Body Fat Depletion (Severe): Mod to Severe Depletion Muscle Mass (Severe): Mod to Severe Depletion Protein Calorie Malnutrition: Severe Is there a minimum of two crit: Yes Plan discussed with: Patient, Other CC Plasma Assessment Blood Product Administration S: [id number] VALENTE DEE MD Apr 10, 2025 14:16
--- NOTE | 2025-04-10 15:32 | DVHPN2 ---
Progress Note - Dictate Date Seen: Apr 10, 2025 Medical Necessity Reason Pt with a Central, PICC or Fol: Yes The following are medically ne: PICC Line, Barrios Catheter Subjective Patient is stable awake alert He is downgraded to the floor MRI of the brain was negative KWAN drain 10 mg, T-tube drain 50 mL Intraoperative cholangiogram showed filling defect Liver enzymes are trending down and alkaline phosphatase trended upto 167 Underwent a open cholecystectomy with CBD exploration T-tube was then placed; patient had extensive inflammatory changes around the duodenal area No active GI bleeding reported, hemoglobin stable at 9.0 S/P 4 units PRBC transfused during this admission Hepatitis panel is negative and HIV is negative and ferritin is normal vital signs Vital Sign Date Time Temp Pulse Resp B/P (MAP) Pulse Ox O2 Delivery O2 Flow Rate FiO2 04/10/25 13:00 97.5 109 18 145/101 (116) 97 97.5 04/10/25 11:20 Room Air* 0 21 Total Intake and Output 04/09/25 04/09/25 04/10/25 15:00 23:00 07:00 Intake Total 450 ml 740 ml 1750 ml Output Total 1600 ml 1100 ml Balance 450 ml -860 ml 650 ml medications Current Medications Medications Dose Ordered Sig/Wally Route Start Time Stop Time Status Last Admin Dose Admin Diagnostic Test (Pha) 1 strip Q6HR 03/16/25 18:00 04/10/25 12:00 1 STRIP Insulin Human Regular FOLLOW SLIDING SCALE Q6HR SC 03/16/25 18:00 04/10/25 11:44 2 UNITS Dextrose 50 ml UD IV 03/16/25 17:15 Folic Acid 1 mg/ Dextrose 50.2 ml @ 200.8 mls/ hr DAILY INJ 03/17/25 10:00 04/10/25 10:00 200.8 MLS/HR Thiamine HCl 100 mg DAILY IV 03/18/25 10:00 04/10/25 09:15 100 MG Atorvastatin Calcium 40 mg HS PO 03/17/25 22:00 Hold Sucralfate 1 gm QID@0600,1130,1700,2200 GT 03/23/25 17:00 04/10/25 14:18 1 GM Pantoprazole Sodium 40 mg BID IV 03/26/25 22:00 04/10/25 09:36 40 MG Levalbuterol HCl 0.625 mg Q6HR NEB 03/28/25 12:00 04/10/25 11:20 0.625 MG Nicotine 1 patch DAILY TD 03/29/25 10:00 04/10/25 09:18 1 PATCH Lorazepam 0.5 mg [id number] PRN IV 03/28/25 19:30 04/07/25 04:09 0.5 MG Clonidine HCl 0.2 mg TID PO 03/29/25 14:00 Hold 04/02/25 14:57 0.2 MG Losartan Potassium 100 mg DAILY PO 03/30/25 10:00 04/10/25 09:16 100 MG Ondansetron HCl 4 mg Q4HPRN PRN IV 04/03/25 10:00 04/07/25 18:10 4 MG Amino Acids 0 ml @ 0 mls/hr PER PHARMACY IV 04/03/25 10:00 Labetalol HCl 5 mg Q4HP PRN IV 04/03/25 11:30 04/10/25 09:14 5 MG Hydromorphone HCl 0.5 mg Q4HPRN PRN IV 04/03/25 11:30 04/09/25 22:52 0.5 MG Lidocaine HCl 0.5 ml ONCE PRN ID 04/03/25 16:45 04/03/25 17:30 0.5 ML Sodium Chloride 10 ml QSHIFT@10,22 IV 04/03/25 22:00 04/10/25 10:00 10 ML Enteral Nutritional Formula 240 ml TIDWM PO 04/06/25 08:00 04/10/25 13:15 240 ML Lactated Ringer's 1,000 ml @ 75 mls/hr [id number] IV 04/07/25 13:00 04/10/25 06:14 75 MLS/HR Fat Emulsion Intravenous 150 ml/Sodium Chloride 60 meq/ Potassium Chloride 10 meq/ Potassium Acetate 20 meq/Potassium Phosphate 11 meq/ Calcium Gluconate 2.3 meq/Magnesium Sulfate 16 meq/ Multivitamins 10 ml/Chromium/ Copper/Manganese/ Zinc 1 ml/Amino Acids/Dextrose 1,502.4462 ml @ 63 mls/hr [id number] IV 04/09/25 22:00 04/10/25 21:59 04/09/25 22:54 63 MLS/HR Fat Emulsion Intravenous 150 ml/Sodium Chloride 80 meq/ Potassium Acetate 30 meq/Potassium Phosphate 22 meq/ Calcium Gluconate 2.3 meq/Magnesium Sulfate 14 meq/ Multivitamins 10 ml/Chromium/ Copper/Manganese/ Zinc 1 ml/Amino Acids/Dextrose 1,509.4462 ml @ 62 mls/hr [id number] IV 04/10/25 22:00 04/11/25 21:59 Amoxicillin/ Clavulanate Potassium 875 mg Q12HR PO 04/10/25 13:41 Linezolid 600 mg BID PO 04/10/25 13:41 objective General-cachectic male HEENT-normocephalic, no icterus, no pallor, neck supple Respiratory-fair air entry bilateral, no rhonchi, no wheeze [id number] heard, no murmurs appreciated Abdominal-soft, nontender, nondistended Musculoskeletal-no pedal edema, no calf tenderness Genitourinary-deferred Neuro-awake alert oriented x3, Psychiatric-not agitated, cooperative, laboratory and microbiology Laboratory Tests 04/10/25 05:53 Test 04/10/25 05:53 Range/Units Serum Glucose 112 H 74-106 mg/dL Problems(with codes): (1) Elevated liver function tests (2) Choledocholithiasis (3) Altered mental status (4) TIA (transient ischemic attack) (5) C. difficile colitis (6) Elevated liver enzymes (7) Gallstone (8) Duodenal ulcer disease Prognosis Plan Continue conservative management Patient is on IV fluids and IV antibiotics ; change to oral Continue IV Protonix Oral Carafate via the NG tube Advance diet as tolerated and taper off TPN Surgical consult following regarding T-tube cholangiogram Discharge planning to SNF Dietary Evaluation Review Recommendations by RD: Increase Calorie Intake, PPN/TPN Comments: Pt meets criteria 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 based on severe wt loss 35lb/24% in 5 month, intake <50% estimated requirement x 5 days, severe muscle wasting and fat depletion Nutrition Recommendation: 1) PPN/TPN if NPO continues 2) Advance to soft diet as medically feasible 3) Ensure Enlive 240ml TID if pt resumes PO diet 4) Monitor NPO status, lab values, weight trend, and I/O Expected Outcomes/Goals: Intake to meet >75% estimated needs GI symptoms to improve Fu 2-3 days Food and Nutrition Intake (Sev: <50% est energy req 5days Interpretation of weight loss: >10% in 6 months Body Fat Depletion (Severe): Mod to Severe Depletion Muscle Mass (Severe): Mod to Severe Depletion Protein Calorie Malnutrition: Severe Is there a minimum of two crit: Yes Plan discussed with: Patient CC Plasma Assessment Blood Product Administration S: [id number] GURJIT NOBLE MD Apr 10, 2025 15:32
[2025-04-10] MEDS: LINEZOLID 600MG TABLET PO SCH (16:35)
--- NOTE | 2025-04-10 20:34 | DVHPN2 ---
Progress Note - Dictate Date Seen: Apr 10, 2025 Medical Necessity Reason Pt with a Central, PICC or Fol: Yes The following are medically ne: PICC Line, Barrios Catheter Subjective Mr. Perez is a 49 years old right-handed gentleman with a history of hypertension, dyslipidemia, multiple strokes, DVT, he was brought to the [facility] on 03/11/2025 with a chief complaint of diarrhea, history is obtained from his , the chart review I saw him on 08/23/2023 for TIA, 10/27/2024 for encephalopathy I have seen and examined the patient, I have talked to his nurse, oriented to person, place, he knows year and the month, his voice is slurry, he follows verbal commands, Stool occult blood, 03/13/2025, 03/29/2025: Positive UDS, 03/12/2025: Negative Plasma alcohol, 03/12/2025: <3 Urinalysis, 03/12/2025: WBC: One, urine leukocyte esterase: Negative ABG, 03/16/25: Hypoxia, respiratory acidosis WBC/Hb/PLT'/MCV, 03/16/25: 10.l 6/7.9/339/82.4, 04/10/2020 5:30 a.m. 0.9/9/349/83.4 Na, 03/11/2025: 129, 03/12/2025: 130, 129, 03/15/25: 145, 03/16/25: 142 BUNs/CR, 08/22/2023: 15/1.45, 03/11/2025: 55/1.77, 03/13/2025: 43/1.58, 02/2725: 65/2.56 GFR, 08/22/2023: 59 TBI/AST/ALT/AP: 0.8/269/450/398 TG/CHO L/LDL/HDL, 08/2023: 136/166/111/39 Vitamin B12, 03/12/25: 852 Folic acid, 03/12/2025: 12.28 TSH, 08/23/2023: 4.25 Ultrasound, 03/24/2025: Gallbladder entirely distended with sludge with gallbladder wall thickening and pericholecystic edema, concerning for cholecystitis. Recommend surgical consultation HIDA scan. Dilated common bile duct measuring 16 mm which can be further evaluated with MRCP. Echogenic liver which can be seen with hepatic steatosis, cirrhosis. Right pleural effusion Extremity venous study, right arm, 11/09/2024: Thrombus is seen in the cephalic vein in the forearm. DONAL, 08/23/2023: 1. No evidence of intracardiac source of embolus in the study conducted today. 2. Normal valves without significant masses or change vegetations were discernible. 3. No evidence of intra-atrial shunting by bubble study and color Doppler. 4. Mild atherosclerotic plaquing was visualized in the arch of the aorta without evidence of dissection in the visualized part EGD, 03/13/2025: 1. 1-2 cm sliding-type hiatal hernia with severe grade C linear erosive esophagitis with esophageal ulcers extending into the distal 15 cm of the esophagus 2. Patient had a persistent duodenal bulb ulcer seen just inside the pyloric opening which was large coalescing with a visible sutures; there was no active bleeding or visible vessel but there was acute on chronic inflammation 3. Patient had deformity of the postbulbar duodenal area and I was able to see the 2nd part of the duodenum but there was area of debris and ongoing chronic ulceration inflammation and the endoscope was not advanced beyond this area 3. Patient had mild gastritis and some old coffee-ground within the stomach Chest x-ray, 03/12/2025: Mild chronic appearing left basilar pulmonary airspace disease and possible small pleural effusion Chest x-ray, 03/13/2025: 1. Enteric tube terminates in the stomach. 2. Worsening bilateral interstitial and alveolar opacities. Chest x-ray, : Endotracheal tube and right IJ approach central venous catheters are in satisfactory position. Trace ugjb-clrekww-lkrt-right pleural effusions with right retro lower lung zone linear atelectasis/ fluid within the fissure. CT head, 10/24/2024: 1. No intracranial hemorrhage or mass effect. 2. Xyrk-gn-vmepoyrc chronic microvascular ischemic changes. 3. Old bilateral basal ganglia lacunar infarcts. 4. Small bilateral mastoid effusions. CT head, 03/17/2025: 1. New medial right parieto-occipital focal region of diminished parenchymal attenuation within the medial right parietal occipital lobes. This is concerning for an acute to subacute infarct. Recommend further evaluation with MRI. 2. No evidence of acute intracranial hemorrhage, mass effect or hydrocephalus. 3. Chronic sequelae of microangiopathy and atrophic cortical volume loss.4. Multifocal chronic lacunar infarcts as outlined above. CT abdomen/pelvis, 10/04/2024: 1. Extensive intra-abdominal free air concerning for perforated viscus. Surgical consultation is recommended. 2. Enteritis is seen in multiple loops of small bowel in the left hemiabdomen. 3. Moderate abdominopelvic ascites. 4. Small right pleural effusion. CTA neck, head, 08/22/2023:1. CTA head demonstrates no evidence of large vessel occlusion, aneurysm, or significant stenosis. 2. CTA neck demonstrates no evidence of carotid or vertebral dissection or significant stenosis. 3. No noncontrast CT head was performed. 4. Additional findings as detailed above MRI head, 08/23/2023: No acute infarct, intracranial hemorrhage, mass effect, or hydrocephalus. Moderate periventricular and deep subcortical white matter T2 hyperintensities which are nonspecific, but most likely related to sequela of chronic microvascular ischemic changes (I have reviewed the MRI films with our in-house radiologist, Dr. Black, the patient had bilateral multiple subacute/chronic infarcts) MRI head, 11/01/2024: No acute cerebrovascular ischemia. Jtfg-ay-ebrutidu chronic microvascular ischemic changes. Bilateral mastoid effusions. Old bilateral basal ganglia / lopes radiata infarcts. MR head, 03/16/2025: Infarcts involving multiple vascular territories as described. MRI head, 04/07/2025: 1. No acute infarct, intracranial hemorrhage, mass effect, or hydrocephalus. 2. Persistent although diminished hyperintensity on the diffusion-weighted sequence in the right medial parieto-occipital lobe and left lopes radiata compatible with recent infarcts. vital signs Vital Sign Date Time Temp Pulse Resp B/P (MAP) Pulse Ox O2 Delivery O2 Flow Rate FiO2 04/10/25 18:20 101 148/96 04/10/25 17:53 18 100 04/10/25 17:43 Room Air 0.0 04/10/25 17:43 21 04/10/25 16:55 97.6 97.6 Total Intake and Output 04/09/25 04/09/25 04/10/25 15:00 23:00 07:00 Intake Total 450 ml 740 ml 1750 ml Output Total 1600 ml 1100 ml Balance 450 ml -860 ml 650 ml medications Current Medications Medications Dose Ordered Sig/Wally Route Start Time Stop Time Status Last Admin Dose Admin Diagnostic Test (Pha) 1 strip Q6HR 03/16/25 18:00 04/10/25 18:16 1 STRIP Insulin Human Regular FOLLOW SLIDING SCALE Q6HR SC 03/16/25 18:00 04/10/25 18:17 2 UNITS Dextrose 50 ml UD IV 03/16/25 17:15 Folic Acid 1 mg/ Dextrose 50.2 ml @ 200.8 mls/ hr DAILY INJ 03/17/25 10:00 04/10/25 10:00 200.8 MLS/HR Thiamine HCl 100 mg DAILY IV 03/18/25 10:00 04/10/25 09:15 100 MG Atorvastatin Calcium 40 mg HS PO 03/17/25 22:00 Hold Sucralfate 1 gm QID@0600,1130,1700,2200 GT 03/23/25 17:00 04/10/25 17:21 1 GM Pantoprazole Sodium 40 mg BID IV 03/26/25 22:00 04/10/25 09:36 40 MG Levalbuterol HCl 0.625 mg Q6HR NEB 03/28/25 12:00 04/10/25 17:43 0.625 MG Nicotine 1 patch DAILY TD 03/29/25 10:00 04/10/25 09:18 1 PATCH Lorazepam 0.5 mg [id number] PRN IV 03/28/25 19:30 04/07/25 04:09 0.5 MG Clonidine HCl 0.2 mg TID PO 03/29/25 14:00 Hold 04/02/25 14:57 0.2 MG Losartan Potassium 100 mg DAILY PO 03/30/25 10:00 04/10/25 09:16 100 MG Ondansetron HCl 4 mg Q4HPRN PRN IV 04/03/25 10:00 04/07/25 18:10 4 MG Amino Acids 0 ml @ 0 mls/hr PER PHARMACY IV 04/03/25 10:00 Labetalol HCl 5 mg Q4HP PRN IV 04/03/25 11:30 04/10/25 17:00 5 MG Hydromorphone HCl 0.5 mg Q4HPRN PRN IV 04/03/25 11:30 04/09/25 22:52 0.5 MG Lidocaine HCl 0.5 ml ONCE PRN ID 04/03/25 16:45 04/03/25 17:30 0.5 ML Sodium Chloride 10 ml QSHIFT@10,22 IV 04/03/25 22:00 04/10/25 10:00 10 ML Enteral Nutritional Formula 240 ml TIDWM PO 04/06/25 08:00 04/10/25 18:32 240 ML Lactated Ringer's 1,000 ml @ 75 mls/hr [id number] IV 04/07/25 13:00 04/10/25 06:14 75 MLS/HR Fat Emulsion Intravenous 150 ml/Sodium Chloride 60 meq/ Potassium Chloride 10 meq/ Potassium Acetate 20 meq/Potassium Phosphate 11 meq/ Calcium Gluconate 2.3 meq/Magnesium Sulfate 16 meq/ Multivitamins 10 ml/Chromium/ Copper/Manganese/ Zinc 1 ml/Amino Acids/Dextrose 1,502.4462 ml @ 63 mls/hr [id number] IV 04/09/25 22:00 04/10/25 21:59 04/09/25 22:54 63 MLS/HR Fat Emulsion Intravenous 150 ml/Sodium Chloride 80 meq/ Potassium Acetate 30 meq/Potassium Phosphate 22 meq/ Calcium Gluconate 2.3 meq/Magnesium Sulfate 14 meq/ Multivitamins 10 ml/Chromium/ Copper/Manganese/ Zinc 1 ml/Amino Acids/Dextrose 1,509.4462 ml @ 62 mls/hr [id number] IV 04/10/25 22:00 04/11/25 21:59 Amoxicillin/ Clavulanate Potassium 875 mg Q12HR PO 04/10/25 13:41 04/10/25 16:34 875 MG Linezolid 600 mg BID PO 04/10/25 13:41 04/10/25 16:35 600 MG objective The patient is well-nourished and well-developed with no distress. MENTAL STATUS: Subjective CRANIAL NERVES: Pupils are equal, round and reactive. EOMs full and conjugate. Facial sensation intact in all three divisions bilaterally. Mandibular strength intact. Facial muscles symmetrical and strength intact. SENSATION: Okay to touch MOTOR: Normal tone in the upper and lower extremity. Normal muscle bulk. No fasciculations. Muscle power: Right arm: 3/5, right le-2/5, left arm: 4/5, left le/5 REFLEXES: Deep tendon reflexes are symmetrical, 3-4/4 in the knees and 4/4 in the ankles (stronger in the left ankle). No pathological reflexes. CEREBELLAR/COORDINATION: Deferred GAIT/STATION: deferred. laboratory and microbiology Laboratory Tests 04/10/25 05:53 Test 04/10/25 05:53 Range/Units Serum Glucose 112 H 74-106 mg/dL Problem List Altered mental status Metabolic encephalopathy secondary to sepsis, septic shock, hypernatremia Hypoxic encephalopathy Worsened weakness in the left extremities, left lower extremity on 04/07/2025, MRI she has no new pathology Peptic ulcer, GI bleeding, anemia Respiratory failure Right hemiparesis Acute multiple strokes in different arterial territories (MRI 03/18/25) Multiple chronic strokes Maybe secondary to history methamphetamine, cocaine, alcohol use History of alcohol abuse History of cocaine, methamphetamine abuse Assessment/Plan Monitoring Supportive treatment Occult stool blood IV antibiotics Protonix 40 mg b.i.d. Aspirin 81 mg daily later Lipitor later TPN Thiamine supplementation Folic acid supplementation GI service on case Nephrology service on case More recommended per clinical course This medical document was created using an electronic medical record system with [employer] dictation system. Although this document has been carefully reviewed, there may still be some phonetic and typographical errors. These areas are purely typographical due to imperfect Prognosis poor Dietary Evaluation Review Recommendations by RD: Increase Calorie Intake, PPN/TPN Comments: Pt meets criteria 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 based on severe wt loss 35lb/24% in 5 month, intake <50% estimated requirement x 5 days, severe muscle wasting and fat depletion Nutrition Recommendation: 1) PPN/TPN if NPO continues 2) Advance to soft diet as medically feasible 3) Ensure Enlive 240ml TID if pt resumes PO diet 4) Monitor NPO status, lab values, weight trend, and I/O Expected Outcomes/Goals: Intake to meet >75% estimated needs GI symptoms to improve Fu 2-3 days Food and Nutrition Intake (Sev: <50% est energy req 5days Interpretation of weight loss: >10% in 6 months Body Fat Depletion (Severe): Mod to Severe Depletion Muscle Mass (Severe): Mod to Severe Depletion Protein Calorie Malnutrition: Severe Is there a minimum of two crit: Yes Plan discussed with: Other CC Plasma Assessment Blood Product Administration S: [id number] LEANDRO BLACK MD Apr 10, 2025 20:33
[2025-04-10] MEDS: TPN PER PHARMACY IV NR (23:16)
[2025-04-11] VITALS (16 sets, daily range): BP systolic 143–168; BP diastolic 97–109; PULSE 80–108; RESP 16–20; TEMP 97.5–98.5; O2SAT 97–100
[2025-04-11 05:58] LABS: Alanine Aminotransferase 15 U/L (7-40); Anion Gap 9 (5-15); BUN/Creatinine Ratio 28.9 (10.0-20.0); Carbon Dioxide 23 mmol/L (20-31); Chloride 103 mmol/L (98-107); Magnesium 2.2 mg/dL (1.6-2.6); Potassium 4.2 mmol/L (3.5-5.1); Total Protein 6.3 g/dL (5.7-8.2); Triglycerides 82 mg/dL (< 150)
[2025-04-11 05:59] LABS: Albumin 2.7 g/dL (3.2-4.8); Alkaline Phosphatase 165 U/L (46-116); Blood Urea Nitrogen 26 mg/dL (9-23); Calcium 8.2 mg/dL (8.7-10.4); Glucose 110 mg/dL (74-106); Sodium 135 mmol/L (136-145)
[2025-04-11 06:01] LABS: Bilirubin, Total 0.2 mg/dL (0.2-1.0)
--- NOTE | 2025-04-11 11:59 | DVHPN2 ---
MABEL HERRERA RESIDENT 04/11/25 1159: Progress Note Date Seen: Apr 11, 2025 Medical Necessity Reason Pt with a Central, PICC or Fol: Yes The following are medically ne: PICC Line, Barrios Catheter Subjective Review of Systems Patient seen and examined at bedside No acute complaints Objective vital signs Vital Sign Date Time Temp Pulse Resp B/P (MAP) Pulse Ox O2 Delivery O2 Flow Rate FiO2 04/11/25 09:30 90 18 159/104 04/11/25 09:00 97.5 100 97.5 04/11/25 08:00 Room Air* 0 21 Total Intake and Output 04/10/25 04/10/25 04/11/25 15:00 23:00 07:00 Intake Total 100 ml 400 ml Output Total 1650 ml 360 ml Balance 100 ml -1250 ml -360 ml medications Current Medications Medications Dose Ordered Sig/Wally Route Start Time Stop Time Status Last Admin Dose Admin Diagnostic Test (Pha) 1 strip Q6HR 03/16/25 18:00 04/11/25 06:54 1 STRIP Insulin Human Regular FOLLOW SLIDING SCALE Q6HR SC 03/16/25 18:00 04/10/25 18:17 2 UNITS Dextrose 50 ml UD IV 03/16/25 17:15 Folic Acid 1 mg/ Dextrose 50.2 ml @ 200.8 mls/ hr DAILY INJ 03/17/25 10:00 04/10/25 10:00 200.8 MLS/HR Thiamine HCl 100 mg DAILY IV 03/18/25 10:00 04/11/25 09:18 100 MG Atorvastatin Calcium 40 mg HS PO 03/17/25 22:00 Hold Sucralfate 1 gm QID@0600,1130,1700,2200 GT 03/23/25 17:00 04/11/25 06:40 1 GM Pantoprazole Sodium 40 mg BID IV 03/26/25 22:00 04/11/25 09:17 40 MG Levalbuterol HCl 0.625 mg Q6HR NEB 03/28/25 12:00 04/11/25 07:57 0.625 MG Nicotine 1 patch DAILY TD 03/29/25 10:00 04/11/25 09:19 1 PATCH Lorazepam 0.5 mg [id number] PRN IV 03/28/25 19:30 04/07/25 04:09 0.5 MG Clonidine HCl 0.2 mg TID PO 03/29/25 14:00 Hold 04/02/25 14:57 0.2 MG Losartan Potassium 100 mg DAILY PO 03/30/25 10:00 04/11/25 09:18 100 MG Ondansetron HCl 4 mg Q4HPRN PRN IV 04/03/25 10:00 04/07/25 18:10 4 MG Amino Acids 0 ml @ 0 mls/hr PER PHARMACY IV 04/03/25 10:00 Labetalol HCl 5 mg Q4HP PRN IV 04/03/25 11:30 04/11/25 06:40 5 MG Hydromorphone HCl 0.5 mg Q4HPRN PRN IV 04/03/25 11:30 04/11/25 09:30 0.5 MG Lidocaine HCl 0.5 ml ONCE PRN ID 04/03/25 16:45 04/03/25 17:30 0.5 ML Sodium Chloride 10 ml QSHIFT@10,22 IV 04/03/25 22:00 04/10/25 22:10 10 ML Enteral Nutritional Formula 240 ml TIDWM PO 04/06/25 08:00 04/11/25 08:00 240 ML Lactated Ringer's 1,000 ml @ 75 mls/hr [id number] IV 04/07/25 13:00 04/10/25 06:14 75 MLS/HR Fat Emulsion Intravenous 150 ml/Sodium Chloride 80 meq/ Potassium Acetate 30 meq/Potassium Phosphate 22 meq/ Calcium Gluconate 2.3 meq/Magnesium Sulfate 14 meq/ Multivitamins 10 ml/Chromium/ Copper/Manganese/ Zinc 1 ml/Amino Acids/Dextrose 1,509.4462 ml @ 62 mls/hr [id number] IV 04/10/25 22:00 04/11/25 21:59 04/10/25 23:16 62 MLS/HR Amoxicillin/ Clavulanate Potassium 875 mg Q12HR PO 04/10/25 13:41 04/10/25 22:10 875 MG Linezolid 600 mg BID PO 04/10/25 13:41 04/11/25 09:18 600 MG Examination General Appearance: Alert, Oriented X3 HEENT: Atraumatic, PERRLA, EOMI, Mucous membrane moist/pink Respiratory: Bilateral crackles. Cardiovascular: Regular rate, Normal S1, Normal S2, No murmurs, no chest wall tenderness Abdominal: Surgical wound with dressing on the right upper quadrant with 2 KWAN drain, mildly tender, No hepatosplenomegaly, No masses, decreased bowel sounds Extremities: PICC line on the rt upper arm, No clubbing, No cyanosis, No edema, Normal pulses, No tenderness/swelling Skin: No rashes, No breakdown, No significant lesion Neuro: Normal speech, right-sided weakness, Strength at 5/5 X2 ext, Normal tone, Sensation intact, grossly intact cranial nerves laboratory and microbiology Laboratory Tests 04/11/25 05:12 04/10/25 05:53 Test 04/11/25 05:12 Range/Units Serum Glucose 110 H 74-106 mg/dL Microbiology Date/Time Source Procedure Growth Status 04/08/25 15:30 Blood Blood Culture - Preliminary NO GROWTH AFTER 48 HOURS OF INCUBATION. Resulted 04/03/25 10:17 Gallbladder Gram Stain - Final Complete 04/03/25 10:17 Gallbladder Anaerobic Culture - Final Complete 04/03/25 10:17 Aerobic Culture - Final Enterococcus faecium - VRE Presumptive Milady albicans Complete 03/16/25 16:06 Sputum Gram Stain - Final Complete 03/16/25 16:06 Respiratory Culture - Final Stenotrophomonas maltophilia Escherichia coli Presumptive Milady albicans Complete 03/13/25 11:53 Stool Stool Culture - Final Complete 03/13/25 11:53 Stool Shiga Toxin I & II - Final Complete 03/12/25 11:55 Urine - Barrios Port Urine Culture - Final Complete Problem List/Assessment/Plan Problem List/Assessment/Plan NEURO: Acute metabolic encephalopathy secondary to acute ischemic stroke; resolved; able to make decisions; alert and oriented X3 Acute or subacute ischemic stroke Hypertensive emergency Acute anxiety - CT head without contrast demonstrated new medial right parieto-occipital focal region of diminished parenchymal attenuation within the medial right parietal occipital lobes. This is concerning for an acute to subacute infarct with chronic multifocal lacunar infarct - MRI showed Infarcts involving multiple vascular territories involved medial right occipital lobe, posterior left occipital lobe, and left lopes radiata white matter tracts. Few additional tiny foci of diffusion restriction at the anterior right parietal cortex. - Neurology on board - hold aspirin and Plavix for now because of GI bleeding - atorvastatin 40 mg p.o. daily - Clonidine 0.2 mg p.o.tid, losartan 100 mg daily and IV labetalol 5 mg q.2h PRN SBP>150 - IV Ativan 0.5 mg q.12 PRN CARDIOVASCULAR: Chronic diastolic heart failure with preserved ejection fraction - Echo on 11/12 demonstrated EF 65%, MILD LVH AND MILD LV DIASTOLIC DYSFUNCTION - elevated BNP - CXR showed Bilateral interstitial opacities, small left basilar consolidation and pleural effusion PULMONARY: Acute hypoxic respiratory failure; to continue oxygen therapy as indicated; currently room air S/P extubation GASTROINTESTINAL: 04/03/2025: S/P open cholecystectomy with common bile duct exploration with intrahepatic cholangiogram . Acute GI bleed upper vs lower Partial small Intestinal obstruction likely secondary to fecal impaction. Cholelithiasis C diff positive Elevated alkaline phosphatase -CT abdomen/pelvis showed low-grade distal partial obstruction due to fecal retention. - Gastrografin study showed Contrast is identified within the colon by 3 hours. No evidence of bowel obstruction. -EGD on 03/13/25 showed 1-2 cm sliding-type hiatal hernia with severe grade C linear erosive esophagitis with esophageal ulcers extending into the distal 15 cm of the esophagus persistent duodenal bulb ulcer seen just inside the pyloric opening which was large coalescing with a visible sutures; there was no active bleeding or visible vessel but there was acute on chronic inflammation deformity of the postbulbar duodenal area and but there was area of debris and ongoing chronic ulceration inflammation and the endoscope was not advanced beyond this area mild gastritis and some old coffee-ground within the stomach - GB U/S demonstrated gallbladder wall thickening and pericholecystic edema, concerning for cholecystitis and dilated CBD up to 16 mm. - MRCP scan demonstrated Choledocholithiasis in the mid to distal common bile duct predominantly dependently. - - full liquid diet - IV ceftriaxone 1 g daily and IV metronidazole 500 mg t.i.d. - TPN per pharmacy - IV Protonix 40 mg bid - Carafate suspension 1 g q.i.d. - Zofran 4 mg IV q.4 PRN - Monitor Hand H, transfuse if hemoglobin less than 7- 04/06/25: HR elevated, dehydrated, 2 bolus of LR 04/07/25: stable for downgrade. continue LR 75cc/h 04/08/25: patient continues to have elevated wbc, elevated HR, we are adding zyvox to the treatment, new urine, blood and drain culture added. also PT suggested that recovery should be continue in SNF after DC, ordered placed 04/11/25: Patient was cleared for DC by surgery, pending SNF placement, patient should continue current treatment and PO AB GENITOURINARY: GIOVANI on CKD likely hemodynamically mediated/VMN resolved - Monitor BMP METABOLIC: Hypernatremia Hypokalemia Hypophosphatemia - monitor BMP and replace/correct electrolytes as indicated HEME: Severe microcytic hypochromic anemia due to GI bleeding Iron deficiency due to above Bilateral superficial thrombophlebitis - Patient received 4 units of PRBCs - Monitor H&H INFECTIOUS DISEASE: Acute C diff infection - po vancomycin on hold because of upper GI bleeding Nicotine dependence - Nicotine dependence 21 g/24 hours DIET: TPN, full liquid diet DVT prophylax: SCDs due to GI bleed GI prophylaxis: Protonix IV Code status: Full code; goals of care rediscussed with the patient and the patient's for 20 minutes; continues to be full code LINES/DRAINS/ACCESS: Extubated on 03/27/25 LINES: Rt PICC line Drips: TPN Barrios catheter DISPOSITION: SNF Patient's status discussed with RN, Time care time spent: 90 minutes, including patient care, chart review, and updating the family. Excluding any procedures. Case discussed with Dr. Medina Plan discussed with: Patient, Other (rn) Dietary Evaluation Review Recommendations by RD: Increase Calorie Intake, PPN/TPN Comments: Pt meets criteria 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 based on severe wt loss 35lb/24% in 5 month, intake <50% estimated requirement x 5 days, severe muscle wasting and fat depletion Nutrition Recommendation: 1) PPN/TPN if NPO continues 2) Advance to soft diet as medically feasible 3) Ensure Enlive 240ml TID if pt resumes PO diet 4) Monitor NPO status, lab values, weight trend, and I/O Expected Outcomes/Goals: Intake to meet >75% estimated needs GI symptoms to improve Fu 2-3 days Food and Nutrition Intake (Sev: <50% est energy req 5days Interpretation of weight loss: >10% in 6 months Body Fat Depletion (Severe): Mod to Severe Depletion Muscle Mass (Severe): Mod to Severe Depletion Protein Calorie Malnutrition: Severe Is there a minimum of two crit: Yes Date of Service: Apr 11, 2025 Billing Provider: CRISTA MEDINA MD Common Visit Codes: [id number] INP/OBS CARE(HIGH) CC Plasma Assessment Blood Product Administration S: [id number] CRISTA MEDINA MD 04/19/251954: Date of Service: Apr 11, 2025 Billing Provider: CRISTA MEDINA MD, MARIA RESIDENT Apr 11, 2025 11:59 CRISTA MEDINA MD Apr 19, 2025 19:55
--- NOTE | 2025-04-11 13:37 | DVHPN2 ---
Progress Note - Dictate Date Seen: Apr 11, 2025 Medical Necessity Reason Pt with a Central, PICC or Fol: Yes The following are medically ne: PICC Line, Barrios Catheter vital signs Vital Sign Date Time Temp Pulse Resp B/P (MAP) Pulse Ox O2 Delivery O2 Flow Rate FiO2 04/11/25 13:06 80 16 100 04/11/25 13:00 Room Air 04/11/25 13:00 0 21 04/11/25 13:00 97.9 166/109 (128) 97.9 Total Intake and Output 04/10/25 04/10/25 04/11/25 15:00 23:00 07:00 Intake Total 100 ml 400 ml Output Total 1650 ml 360 ml Balance 100 ml -1250 ml -360 ml medications Current Medications Medications Dose Ordered Sig/Wally Route Start Time Stop Time Status Last Admin Dose Admin Diagnostic Test (Pha) 1 strip Q6HR 03/16/25 18:00 04/11/25 12:04 1 STRIP Insulin Human Regular FOLLOW SLIDING SCALE Q6HR SC 03/16/25 18:00 04/11/25 12:04 2 UNITS Dextrose 50 ml UD IV 03/16/25 17:15 Folic Acid 1 mg/ Dextrose 50.2 ml @ 200.8 mls/ hr DAILY INJ 03/17/25 10:00 04/10/25 10:00 200.8 MLS/HR Thiamine HCl 100 mg DAILY IV 03/18/25 10:00 04/11/25 09:18 100 MG Atorvastatin Calcium 40 mg HS PO 03/17/25 22:00 Hold Sucralfate 1 gm QID@0600,1130,1700,2200 GT 03/23/25 17:00 04/11/25 12:25 1 GM Pantoprazole Sodium 40 mg BID IV 03/26/25 22:00 04/11/25 09:17 40 MG Levalbuterol HCl 0.625 mg Q6HR NEB 03/28/25 12:00 04/11/25 12:59 0.625 MG Nicotine 1 patch DAILY TD 03/29/25 10:00 04/11/25 09:19 1 PATCH Lorazepam 0.5 mg [id number] PRN IV 03/28/25 19:30 04/07/25 04:09 0.5 MG Clonidine HCl 0.2 mg TID PO 03/29/25 14:00 Hold 04/02/25 14:57 0.2 MG Losartan Potassium 100 mg DAILY PO 03/30/25 10:00 04/11/25 09:18 100 MG Ondansetron HCl 4 mg Q4HPRN PRN IV 04/03/25 10:00 04/07/25 18:10 4 MG Amino Acids 0 ml @ 0 mls/hr PER PHARMACY IV 04/03/25 10:00 Labetalol HCl 5 mg Q4HP PRN IV 04/03/25 11:30 04/11/25 12:25 5 MG Hydromorphone HCl 0.5 mg Q4HPRN PRN IV 04/03/25 11:30 04/11/25 09:30 0.5 MG Lidocaine HCl 0.5 ml ONCE PRN ID 04/03/25 16:45 04/03/25 17:30 0.5 ML Sodium Chloride 10 ml QSHIFT@10,22 IV 04/03/25 22:00 04/11/25 10:00 10 ML Enteral Nutritional Formula 240 ml TIDWM PO 04/06/25 08:00 04/11/25 12:08 240 ML Lactated Ringer's 1,000 ml @ 75 mls/hr [id number] IV 04/07/25 13:00 04/11/25 10:20 75 MLS/HR Fat Emulsion Intravenous 150 ml/Sodium Chloride 80 meq/ Potassium Acetate 30 meq/Potassium Phosphate 22 meq/ Calcium Gluconate 2.3 meq/Magnesium Sulfate 14 meq/ Multivitamins 10 ml/Chromium/ Copper/Manganese/ Zinc 1 ml/Amino Acids/Dextrose 1,509.4462 ml @ 62 mls/hr [id number] IV 04/10/25 22:00 04/11/25 21:59 04/10/25 23:16 62 MLS/HR Amoxicillin/ Clavulanate Potassium 875 mg Q12HR PO 04/10/25 13:41 04/11/25 12:25 875 MG Linezolid 600 mg BID PO 04/10/25 13:41 04/11/25 09:18 600 MG Fat Emulsion Intravenous 200 ml/Sodium Chloride 80 meq/ Sodium Acetate 10 meq/Sodium Phosphate 10 meq/ Potassium Acetate 20 meq/Potassium Phosphate 22 meq/ Calcium Gluconate 2.3 meq/Magnesium Sulfate 14 meq/ Multivitamins 10 ml/Chromium/ Copper/Manganese/ Zinc 1 ml/Amino Acids/Dextrose 1,511.9462 ml @ 63 mls/hr Q24H IV 04/11/25 22:00 04/12/25 21:59 laboratory and microbiology Laboratory Tests 04/11/25 05:12 04/10/25 05:53 Test 04/11/25 05:12 Range/Units Serum Glucose 110 H 74-106 mg/dL Assessment/Plan Impression Acute hypoxemic respiratory failure Multiple strokes GI bleed Anemia GIOVANI Patient seen and examined Events Low oxygen requirements On 2 liters nasal cannula At baseline No new complaints S/p cholecystectomy Labs and imaging reviewed Management Supplemental oxygen Titrate to maintain sats 90% or above Incentive spirometry Aspiration precautions Continue antibiotics F/u cultures Bronchodilators Monitor renal function Monitor electrolytes Supplement as needed Monitor hemoglobin F/u GI DVT prophylaxis Dietary Evaluation Review Recommendations by RD: Increase Calorie Intake, PPN/TPN Comments: Pt meets criteria 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 based on severe wt loss 35lb/24% in 5 month, intake <50% estimated requirement x 5 days, severe muscle wasting and fat depletion Nutrition Recommendation: 1) PPN/TPN if NPO continues 2) Advance to soft diet as medically feasible 3) Ensure Enlive 240ml TID if pt resumes PO diet 4) Monitor NPO status, lab values, weight trend, and I/O Expected Outcomes/Goals: Intake to meet >75% estimated needs GI symptoms to improve Fu 2-3 days Food and Nutrition Intake (Sev: <50% est energy req 5days Interpretation of weight loss: >10% in 6 months Body Fat Depletion (Severe): Mod to Severe Depletion Muscle Mass (Severe): Mod to Severe Depletion Protein Calorie Malnutrition: Severe Is there a minimum of two crit: Yes Plan discussed with: Patient CC Plasma Assessment Blood Product Administration S: [id number] VALENTE DEE MD Apr 11, 2025 13:37
--- NOTE | 2025-04-11 19:20 | DVHPN2 ---
Progress Note - Dictate Date Seen: Apr 11, 2025 Medical Necessity Reason Pt with a Central, PICC or Fol: Yes The following are medically ne: PICC Line, Barrios Catheter Subjective Patient is stable awake alert KWAN drain 10 ml, T-tube drain 350 mL Intraoperative cholangiogram showed filling defect Liver enzymes are trending down and alkaline phosphatase at 165 Underwent a open cholecystectomy with CBD exploration T-tube was then placed; patient had extensive inflammatory changes around the duodenal area No active GI bleeding reported, hemoglobin stable at 9.0, leukocytosis white count 13 K S/P 4 units PRBC transfused during this admission Hepatitis panel is negative and HIV is negative and ferritin is normal vital signs Vital Sign Date Time Temp Pulse Resp B/P (MAP) Pulse Ox O2 Delivery O2 Flow Rate FiO2 04/11/25 18:07 89 145/88 04/11/25 17:39 19 04/11/25 16:54 97.8 98 97.8 04/11/25 13:00 Room Air 04/11/25 13:00 0 21 Total Intake and Output 04/10/25 04/10/25 04/11/25 15:00 23:00 07:00 Intake Total 100 ml 400 ml Output Total 1650 ml 360 ml Balance 100 ml -1250 ml -360 ml medications Current Medications Medications Dose Ordered Sig/Wally Route Start Time Stop Time Status Last Admin Dose Admin Diagnostic Test (Pha) 1 strip Q6HR 03/16/25 18:00 04/11/25 17:51 1 STRIP Insulin Human Regular FOLLOW SLIDING SCALE Q6HR SC 03/16/25 18:00 04/11/25 17:51 2 UNITS Dextrose 50 ml UD IV 03/16/25 17:15 Folic Acid 1 mg/ Dextrose 50.2 ml @ 200.8 mls/ hr DAILY INJ 03/17/25 10:00 04/10/25 10:00 200.8 MLS/HR Thiamine HCl 100 mg DAILY IV 03/18/25 10:00 04/11/25 09:18 100 MG Atorvastatin Calcium 40 mg HS PO 03/17/25 22:00 Hold Sucralfate 1 gm QID@0600,1130,1700,2200 GT 03/23/25 17:00 04/11/25 17:08 1 GM Pantoprazole Sodium 40 mg BID IV 03/26/25 22:00 04/11/25 09:17 40 MG Levalbuterol HCl 0.625 mg Q6HR NEB 03/28/25 12:00 04/11/25 18:20 0.625 MG Nicotine 1 patch DAILY TD 03/29/25 10:00 04/11/25 09:19 1 PATCH Lorazepam 0.5 mg [id number] PRN IV 03/28/25 19:30 04/07/25 04:09 0.5 MG Clonidine HCl 0.2 mg TID PO 03/29/25 14:00 Hold 04/02/25 14:57 0.2 MG Losartan Potassium 100 mg DAILY PO 03/30/25 10:00 04/11/25 09:18 100 MG Ondansetron HCl 4 mg Q4HPRN PRN IV 04/03/25 10:00 04/07/25 18:10 4 MG Amino Acids 0 ml @ 0 mls/hr PER PHARMACY IV 04/03/25 10:00 Labetalol HCl 5 mg Q4HP PRN IV 04/03/25 11:30 04/11/25 17:07 5 MG Hydromorphone HCl 0.5 mg Q4HPRN PRN IV 04/03/25 11:30 04/11/25 17:09 0.5 MG Lidocaine HCl 0.5 ml ONCE PRN ID 04/03/25 16:45 04/03/25 17:30 0.5 ML Sodium Chloride 10 ml QSHIFT@10,22 IV 04/03/25 22:00 04/11/25 10:00 10 ML Enteral Nutritional Formula 240 ml TIDWM PO 04/06/25 08:00 04/11/25 17:55 240 ML Lactated Ringer's 1,000 ml @ 75 mls/hr [id number] IV 04/07/25 13:00 04/11/25 10:20 75 MLS/HR Fat Emulsion Intravenous 150 ml/Sodium Chloride 80 meq/ Potassium Acetate 30 meq/Potassium Phosphate 22 meq/ Calcium Gluconate 2.3 meq/Magnesium Sulfate 14 meq/ Multivitamins 10 ml/Chromium/ Copper/Manganese/ Zinc 1 ml/Amino Acids/Dextrose 1,509.4462 ml @ 62 mls/hr [id number] IV 04/10/25 22:00 04/11/25 21:59 04/10/25 23:16 62 MLS/HR Amoxicillin/ Clavulanate Potassium 875 mg Q12HR PO 04/10/25 13:41 04/11/25 12:25 875 MG Linezolid 600 mg BID PO 04/10/25 13:41 04/11/25 09:18 600 MG Fat Emulsion Intravenous 200 ml/Sodium Chloride 80 meq/ Sodium Acetate 10 meq/Sodium Phosphate 10 meq/ Potassium Acetate 20 meq/Potassium Phosphate 22 meq/ Calcium Gluconate 2.3 meq/Magnesium Sulfate 14 meq/ Multivitamins 10 ml/Chromium/ Copper/Manganese/ Zinc 1 ml/Amino Acids/Dextrose 1,511.9462 ml @ 63 mls/hr Q24H IV 04/11/25 22:00 04/12/25 21:59 objective General-cachectic male HEENT-normocephalic, no icterus, no pallor, neck supple Respiratory-fair air entry bilateral, no rhonchi, no wheeze [id number] heard, no murmurs appreciated Abdominal-soft, nontender, nondistended Musculoskeletal-no pedal edema, no calf tenderness Genitourinary-deferred Neuro-awake alert oriented x3, Psychiatric-not agitated, cooperative, laboratory and microbiology Laboratory Tests 04/11/25 05:12 04/10/25 05:53 Test 04/11/25 05:12 Range/Units Serum Glucose 110 H 74-106 mg/dL Problems(with codes): (1) Elevated liver function tests (2) Choledocholithiasis (3) Altered mental status (4) TIA (transient ischemic attack) (5) C. difficile colitis (6) Elevated liver enzymes (7) Gallstone (8) Duodenal ulcer disease (9) Severe anemia (10) Leukocytosis Prognosis Plan Continue to monitor labs CBC BMP in a.m. Continue current medical management Discharge planning ongoing Dietary Evaluation Review Recommendations by RD: Increase Calorie Intake, PPN/TPN Comments: Pt meets criteria 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 based on severe wt loss 35lb/24% in 5 month, intake <50% estimated requirement x 5 days, severe muscle wasting and fat depletion Nutrition Recommendation: 1) PPN/TPN if NPO continues 2) Advance to soft diet as medically feasible 3) Ensure Enlive 240ml TID if pt resumes PO diet 4) Monitor NPO status, lab values, weight trend, and I/O Expected Outcomes/Goals: Intake to meet >75% estimated needs GI symptoms to improve Fu 2-3 days Food and Nutrition Intake (Sev: <50% est energy req 5days Interpretation of weight loss: >10% in 6 months Body Fat Depletion (Severe): Mod to Severe Depletion Muscle Mass (Severe): Mod to Severe Depletion Protein Calorie Malnutrition: Severe Is there a minimum of two crit: Yes Plan discussed with: Patient CC Plasma Assessment Blood Product Administration S: [id number] GURJIT NOBLE MD Apr 11, 2025 19:20
[2025-04-11] MEDS: TPN PER PHARMACY IV NR (22:38)
[2025-04-12] VITALS (19 sets, daily range): BP systolic 138–162; BP diastolic 82–109; PULSE 98–119; RESP 16–22; TEMP 97.4–98.5; O2SAT 96–99
[2025-04-12 07:15] LABS: Hematocrit 25.0 % (41.0-53.0); Hemoglobin 8.2 g/dL (13.5-17.5); Mean Corpuscular Hemoglobin 27.6 pg (28.0-32.0); Mean Corpuscular Volume 83.6 fL (80.0-100.0); Nucleated Red Blood Cells % 0.0 %
[2025-04-12 08:03] LABS: Alanine Aminotransferase 18 U/L (7-40); Anion Gap 11 (5-15); BUN/Creatinine Ratio 34.8 (10.0-20.0); Carbon Dioxide 23 mmol/L (20-31); Chloride 102 mmol/L (98-107); Magnesium 2.3 mg/dL (1.6-2.6); Potassium 4.1 mmol/L (3.5-5.1); Total Protein 6.7 g/dL (5.7-8.2)
[2025-04-12 08:13] LABS: Albumin 2.9 g/dL (3.2-4.8); Alkaline Phosphatase 185 U/L (46-116); Bilirubin, Total 0.2 mg/dL (0.2-1.0); Blood Urea Nitrogen 31 mg/dL (9-23); Calcium 8.4 mg/dL (8.7-10.4); Glucose 115 mg/dL (74-106); Sodium 136 mmol/L (136-145)
--- NOTE | 2025-04-12 11:28 | DVHPN2 ---
KWASI MILLAN RESIDENT 04/12/25 1128: Progress Note Date Seen: Apr 12, 2025 Medical Necessity Reason Pt with a Central, PICC or Fol: Yes The following are medically ne: PICC Line, Barrios Catheter Subjective Review of Systems Patient was seen today at bedside Labs and chart reviewed Leukocytosis resolved As per social service pending Auth from [facility] for SNF Objective vital signs Vital Sign Date Time Temp Pulse Resp B/P (MAP) Pulse Ox O2 Delivery O2 Flow Rate FiO2 04/12/25 10:11 110 22 162/104 04/12/25 08:58 98.2 97 98.2 04/12/25 07:53 Room Air 0.0 04/12/25 07:53 21 Total Intake and Output 04/11/25 04/11/25 04/12/25 15:00 23:00 07:00 Intake Total 520 ml 500 ml Output Total 1120 ml 2100 ml Balance -600 ml -1600 ml medications Current Medications Medications Dose Ordered Sig/Wally Route Start Time Stop Time Status Last Admin Dose Admin Diagnostic Test (Pha) 1 strip Q6HR 03/16/25 18:00 04/12/25 05:26 1 STRIP Insulin Human Regular FOLLOW SLIDING SCALE Q6HR SC 03/16/25 18:00 04/11/25 17:51 2 UNITS Dextrose 50 ml UD IV 03/16/25 17:15 Folic Acid 1 mg/ Dextrose 50.2 ml @ 200.8 mls/ hr DAILY INJ 03/17/25 10:00 04/12/25 09:45 200.8 MLS/HR Thiamine HCl 100 mg DAILY IV 03/18/25 10:00 04/12/25 09:08 100 MG Atorvastatin Calcium 40 mg HS PO 03/17/25 22:00 Hold Sucralfate 1 gm QID@0600,1130,1700,2200 GT 03/23/25 17:00 04/12/25 05:26 1 GM Pantoprazole Sodium 40 mg BID IV 03/26/25 22:00 04/12/25 09:08 40 MG Levalbuterol HCl 0.625 mg Q6HR NEB 03/28/25 12:00 04/12/25 08:02 0.625 MG Nicotine 1 patch DAILY TD 03/29/25 10:00 04/12/25 09:10 1 PATCH Lorazepam 0.5 mg [id number] PRN IV 03/28/25 19:30 04/07/25 04:09 0.5 MG Clonidine HCl 0.2 mg TID PO 03/29/25 14:00 Hold 04/02/25 14:57 0.2 MG Losartan Potassium 100 mg DAILY PO 03/30/25 10:00 04/12/25 09:09 100 MG Ondansetron HCl 4 mg Q4HPRN PRN IV 04/03/25 10:00 04/07/25 18:10 4 MG Amino Acids 0 ml @ 0 mls/hr PER PHARMACY IV 04/03/25 10:00 Labetalol HCl 5 mg Q4HP PRN IV 04/03/25 11:30 04/11/25 17:07 5 MG Hydromorphone HCl 0.5 mg Q4HPRN PRN IV 04/03/25 11:30 04/12/25 10:11 0.5 MG Lidocaine HCl 0.5 ml ONCE PRN ID 04/03/25 16:45 04/03/25 17:30 0.5 ML Sodium Chloride 10 ml QSHIFT@10,22 IV 04/03/25 22:00 04/12/25 09:09 10 ML Enteral Nutritional Formula 240 ml TIDWM PO 04/06/25 08:00 04/12/25 08:26 240 ML Lactated Ringer's 1,000 ml @ 75 mls/hr [id number] IV 04/07/25 13:00 04/11/25 10:20 75 MLS/HR Amoxicillin/ Clavulanate Potassium 875 mg Q12HR PO 04/10/25 13:41 04/12/25 09:45 875 MG Linezolid 600 mg BID PO 04/10/25 13:41 04/12/25 09:45 600 MG Fat Emulsion Intravenous 200 ml/Sodium Chloride 80 meq/ Sodium Acetate 10 meq/Sodium Phosphate 10 meq/ Potassium Acetate 20 meq/Potassium Phosphate 22 meq/ Calcium Gluconate 2.3 meq/Magnesium Sulfate 14 meq/ Multivitamins 10 ml/Chromium/ Copper/Manganese/ Zinc 1 ml/Amino Acids/Dextrose 1,511.9462 ml @ 63 mls/hr Q24H IV 04/11/25 22:00 04/12/25 21:59 04/11/25 22:38 63 MLS/HR Examination General Appearance: Alert, Oriented X3 HEENT: Atraumatic, PERRLA, EOMI, Mucous membrane moist/pink Respiratory: Bilateral crackles. Cardiovascular: Regular rate, Normal S1, Normal S2, No murmurs, no chest wall tenderness Abdominal: Surgical wound with dressing on the right upper quadrant with 2 KWAN drain, mildly tender, No hepatosplenomegaly, No masses, decreased bowel sounds Extremities: PICC line on the rt upper arm, No clubbing, No cyanosis, No edema, Normal pulses, No tenderness/swelling Skin: No rashes, No breakdown, No significant lesion Neuro: Normal speech, right-sided weakness, Strength at 5/5 X2 ext, Normal tone, Sensation intact, grossly intact cranial nerves laboratory and microbiology Laboratory Tests 04/12/25 06:06 Test 04/12/25 06:06 Range/Units Serum Glucose 115 H 74-106 mg/dL Microbiology Date/Time Source Procedure Growth Status 04/08/25 15:30 Blood Blood Culture - Preliminary NO GROWTH AFTER 72 HOURS OF INCUBATION. Resulted 04/03/25 10:17 Gallbladder Gram Stain - Final Complete 04/03/25 10:17 Gallbladder Anaerobic Culture - Final Complete 04/03/25 10:17 Aerobic Culture - Final Enterococcus faecium - VRE Presumptive Milady albicans Complete 03/16/25 16:06 Sputum Gram Stain - Final Complete 03/16/25 16:06 Respiratory Culture - Final Stenotrophomonas maltophilia Escherichia coli Presumptive Milady albicans Complete 03/13/25 11:53 Stool Stool Culture - Final Complete 03/13/25 11:53 Stool Shiga Toxin I & II - Final Complete 03/12/25 11:55 Urine - Barrios Port Urine Culture - Final Complete Problem List/Assessment/Plan Problem List/Assessment/Plan Problem List/Assessment/Plan NEURO: Acute metabolic encephalopathy secondary to acute ischemic stroke; resolved; able to make decisions; alert and oriented X3 Acute or subacute ischemic stroke Hypertensive emergency Acute anxiety - CT head without contrast demonstrated new medial right parieto-occipital focal region of diminished parenchymal attenuation within the medial right parietal occipital lobes. This is concerning for an acute to subacute infarct with chronic multifocal lacunar infarct - MRI showed Infarcts involving multiple vascular territories involved medial right occipital lobe, posterior left occipital lobe, and left lopes radiata white matter tracts. Few additional tiny foci of diffusion restriction at the anterior right parietal cortex. - Neurology on board - hold aspirin and Plavix for now because of GI bleeding - atorvastatin 40 mg p.o. daily - losartan 100 mg daily and IV labetalol 5 mg q.2h PRN SBP>150 - IV Ativan 0.5 mg q.12 PRN CARDIOVASCULAR: Chronic diastolic heart failure with preserved ejection fraction - Echo on 11/12 demonstrated EF 65%, MILD LVH AND MILD LV DIASTOLIC DYSFUNCTION - elevated BNP - CXR showed Bilateral interstitial opacities, small left basilar consolidation and pleural effusion -continue current conservative managed PULMONARY: Acute hypoxic respiratory failure; to continue oxygen therapy as indicated; currently room air S/P extubation -continue current conservative management GASTROINTESTINAL: 04/03/2025: S/P open cholecystectomy with common bile duct exploration with intrahepatic cholangiogram . Acute GI bleed upper vs lower Partial small Intestinal obstruction likely secondary to fecal impaction. Cholelithiasis C diff positive Elevated alkaline phosphatase -CT abdomen/pelvis showed low-grade distal partial obstruction due to fecal retention. - Gastrografin study showed Contrast is identified within the colon by 3 hours. No evidence of bowel obstruction. -EGD on 03/13/25 showed 1-2 cm sliding-type hiatal hernia with severe grade C linear erosive esophagitis with esophageal ulcers extending into the distal 15 cm of the esophagus persistent duodenal bulb ulcer seen just inside the pyloric opening which was large coalescing with a visible sutures; there was no active bleeding or visible vessel but there was acute on chronic inflammation deformity of the postbulbar duodenal area and but there was area of debris and ongoing chronic ulceration inflammation and the endoscope was not advanced beyond this area mild gastritis and some old coffee-ground within the stomach - GB U/S demonstrated gallbladder wall thickening and pericholecystic edema, concerning for cholecystitis and dilated CBD up to 16 mm. - MRCP scan demonstrated Choledocholithiasis in the mid to distal common bile duct predominantly dependently. - - full liquid diet - continue Augmentin and linezolid p.o. as prescribed - TPN per pharmacy - IV Protonix 40 mg bid - Carafate suspension 1 g q.i.d. - Zofran 4 mg IV q.4 PRN - Monitor Hand H, transfuse if hemoglobin less than 7- 04/06/25: HR elevated, dehydrated, 2 bolus of LR 04/07/25: stable for downgrade. continue LR 75cc/h 11/19/25: patient continues to have elevated wbc, elevated HR, we are adding zyvox to the treatment, new urine, blood and drain culture added. also PT suggested that recovery should be continue in SNF after DC, ordered placed GENITOURINARY: GIOVANI on CKD likely hemodynamically mediated/VMN resolved - Monitor BMP METABOLIC: Hypernatremia Hypokalemia Hypophosphatemia - monitor BMP and replace/correct electrolytes as indicated HEME: Severe microcytic hypochromic anemia due to GI bleeding Iron deficiency due to above Bilateral superficial thrombophlebitis - Patient received 4 units of PRBCs - Monitor H&H INFECTIOUS DISEASE: Acute C diff infection - continue current conservative Nicotine dependence - Nicotine dependence 21 g/24 hours DIET: TPN, full liquid diet DVT prophylax: SCDs due to GI bleed GI prophylaxis: Protonix IV Code status: Full code; goals of care rediscussed with the patient and the patient's for 20 minutes; continues to be full code Patient's status discussed with RN, Patient Time care time spent: 90 minutes, including patient care, chart review, and updating the family. Excluding any procedures. Case discussed with Dr. Medina Plan discussed with: Patient, Other (rn) Plan discussed with: Patient, Other (RN) Dietary Evaluation Review Recommendations by RD: Increase Calorie Intake, PPN/TPN Comments: Pt meets criteria 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 based on severe wt loss 35lb/24% in 5 month, intake <50% estimated requirement x 5 days, severe muscle wasting and fat depletion Nutrition Recommendation: 1) PPN/TPN if NPO continues 2) Advance to soft diet as medically feasible 3) Ensure Enlive 240ml TID if pt resumes PO diet 4) Monitor NPO status, lab values, weight trend, and I/O Expected Outcomes/Goals: Intake to meet >75% estimated needs GI symptoms to improve Fu 2-3 days Food and Nutrition Intake (Sev: <50% est energy req 5days Interpretation of weight loss: >10% in 6 months Body Fat Depletion (Severe): Mod to Severe Depletion Muscle Mass (Severe): Mod to Severe Depletion Protein Calorie Malnutrition: Severe Is there a minimum of two crit: Yes Date of Service: Apr 12, 2025 Billing Provider: CRISTA MEDINA MD Common Visit Codes: [id number] INP/OBS CARE(HIGH) CC Plasma Assessment Blood Product Administration S: [id number] CRISTA MEDINA MD 04/19/251955: KWASI MILLAN RESIDENT Apr 12, 2025 11:28 CRISTA MEDINA MD Apr 19, 2025 19:56
--- NOTE | 2025-04-12 14:59 | DVHPN2 ---
Progress Note - Dictate Date Seen: Apr 12, 2025 Medical Necessity Reason Pt with a Central, PICC or Fol: Yes The following are medically ne: Barrios Catheter vital signs Vital Sign Date Time Temp Pulse Resp B/P (MAP) Pulse Ox O2 Delivery O2 Flow Rate FiO2 04/12/25 12:59 97.8 119 21 160/109 (126) 97 97.8 04/12/25 08:00 Room Air* 0 21 Total Intake and Output 04/11/25 04/11/25 04/12/25 15:00 23:00 07:00 Intake Total 520 ml 500 ml Output Total 1120 ml 2100 ml Balance -600 ml -1600 ml medications Current Medications Medications Dose Ordered Sig/Wally Route Start Time Stop Time Status Last Admin Dose Admin Diagnostic Test (Pha) 1 strip Q6HR 03/16/25 18:00 04/12/25 12:08 1 STRIP Insulin Human Regular FOLLOW SLIDING SCALE Q6HR SC 03/16/25 18:00 04/12/25 12:13 2 UNITS Dextrose 50 ml UD IV 03/16/25 17:15 Folic Acid 1 mg/ Dextrose 50.2 ml @ 200.8 mls/ hr DAILY INJ 03/17/25 10:00 04/12/25 09:45 200.8 MLS/HR Thiamine HCl 100 mg DAILY IV 03/18/25 10:00 04/12/25 09:08 100 MG Atorvastatin Calcium 40 mg HS PO 03/17/25 22:00 Hold Sucralfate 1 gm QID@0600,1130,1700,2200 GT 03/23/25 17:00 04/12/25 12:08 1 GM Pantoprazole Sodium 40 mg BID IV 03/26/25 22:00 04/12/25 09:08 40 MG Levalbuterol HCl 0.625 mg Q6HR NEB 03/28/25 12:00 04/12/25 11:31 0.625 MG Nicotine 1 patch DAILY TD 03/29/25 10:00 04/12/25 09:10 1 PATCH Lorazepam 0.5 mg [id number] PRN IV 03/28/25 19:30 04/07/25 04:09 0.5 MG Clonidine HCl 0.2 mg TID PO 03/29/25 14:00 Hold 04/02/25 14:57 0.2 MG Losartan Potassium 100 mg DAILY PO 03/30/25 10:00 04/12/25 09:09 100 MG Ondansetron HCl 4 mg Q4HPRN PRN IV 04/03/25 10:00 04/07/25 18:10 4 MG Amino Acids 0 ml @ 0 mls/hr PER PHARMACY IV 04/03/25 10:00 Labetalol HCl 5 mg Q4HP PRN IV 04/03/25 11:30 04/11/25 17:07 5 MG Lidocaine HCl 0.5 ml ONCE PRN ID 04/03/25 16:45 04/03/25 17:30 0.5 ML Sodium Chloride 10 ml QSHIFT@10,22 IV 04/03/25 22:00 04/12/25 09:09 10 ML Enteral Nutritional Formula 240 ml TIDWM PO 04/06/25 08:00 04/12/25 12:08 240 ML Lactated Ringer's 1,000 ml @ 75 mls/hr [id number] IV 04/07/25 13:00 04/11/25 10:20 75 MLS/HR Amoxicillin/ Clavulanate Potassium 875 mg Q12HR PO 04/10/25 13:41 04/12/25 09:45 875 MG Linezolid 600 mg BID PO 04/10/25 13:41 04/12/25 09:45 600 MG Fat Emulsion Intravenous 200 ml/Sodium Chloride 80 meq/ Sodium Acetate 10 meq/Sodium Phosphate 10 meq/ Potassium Acetate 20 meq/Potassium Phosphate 22 meq/ Calcium Gluconate 2.3 meq/Magnesium Sulfate 14 meq/ Multivitamins 10 ml/Chromium/ Copper/Manganese/ Zinc 1 ml/Amino Acids/Dextrose 1,511.9462 ml @ 63 mls/hr Q24H IV 04/11/25 22:00 04/12/25 21:59 04/11/25 22:38 63 MLS/HR Fat Emulsion Intravenous 200 ml/Sodium Chloride 80 meq/ Sodium Acetate 20 meq/Potassium Acetate 20 meq/ Potassium Phosphate 22 meq/ Calcium Gluconate 2.32 meq/ Magnesium Sulfate 12 meq/ Multivitamins 10 ml/Chromium/ Copper/Manganese/ Zinc 1 ml/Amino Acids/Dextrose 1,513.9892 ml @ 63 mls/hr Q24H2M IV 04/12/25 22:00 04/13/25 21:59 laboratory and microbiology Laboratory Tests 04/12/25 06:06 Test 04/12/25 06:06 Range/Units Serum Glucose 115 H 74-106 mg/dL Assessment/Plan Impression Acute hypoxemic respiratory failure Multiple strokes GI bleed Anemia GIOVANI Patient seen and examined Events Low oxygen requirements On 2 liters nasal cannula No acute events S/p cholecystectomy Labs and imaging reviewed Management Supplemental oxygen Titrate to maintain sats 90% or above Incentive spirometry Aspiration precautions Continue antibiotics F/u cultures Bronchodilators Monitor renal function Monitor electrolytes Supplement as needed Monitor hemoglobin F/u GI DVT prophylaxis Dietary Evaluation Review Recommendations by RD: Increase Calorie Intake, PPN/TPN Comments: Pt meets criteria 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 based on severe wt loss 35lb/24% in 5 month, intake <50% estimated requirement x 5 days, severe muscle wasting and fat depletion Nutrition Recommendation: 1) PPN/TPN if NPO continues 2) Advance to soft diet as medically feasible 3) Ensure Enlive 240ml TID if pt resumes PO diet 4) Monitor NPO status, lab values, weight trend, and I/O Expected Outcomes/Goals: Intake to meet >75% estimated needs GI symptoms to improve Fu 2-3 days Food and Nutrition Intake (Sev: <50% est energy req 5days Interpretation of weight loss: >10% in 6 months Body Fat Depletion (Severe): Mod to Severe Depletion Muscle Mass (Severe): Mod to Severe Depletion Protein Calorie Malnutrition: Severe Is there a minimum of two crit: Yes Plan discussed with: Patient CC Plasma Assessment Blood Product Administration S: [id number] VALENTE DEE MD Apr 12, 2025 14:59
--- NOTE | 2025-04-12 18:18 | DVHPN2 ---
Progress Note - Dictate Date Seen: Apr 12, 2025 Medical Necessity Reason Pt with a Central, PICC or Fol: Yes The following are medically ne: Barrios Catheter Subjective Patient is stable awake alert alkaline phosphatase trending up to 183 Underwent a open cholecystectomy with CBD exploration T-tube was then placed; patient had extensive inflammatory changes around the duodenal area No active GI bleeding reported, hemoglobin stable at 9.0, leukocytosis white count 13 K S/P 4 units PRBC transfused during this admission Hepatitis panel is negative and HIV is negative and ferritin is normal vital signs Vital Sign Date Time Temp Pulse Resp B/P (MAP) Pulse Ox O2 Delivery O2 Flow Rate FiO2 04/12/25 17:00 97.4 114 20 147/103 (118) 97 97.4 04/12/25 11:00 0.0 04/12/25 08:00 Room Air* 21 Total Intake and Output 04/11/25 04/11/25 04/12/25 15:00 23:00 07:00 Intake Total 520 ml 500 ml Output Total 1120 ml 2100 ml Balance -600 ml -1600 ml medications Current Medications Medications Dose Ordered Sig/Wally Route Start Time Stop Time Status Last Admin Dose Admin Diagnostic Test (Pha) 1 strip Q6HR 03/16/25 18:00 04/12/25 18:03 1 STRIP Insulin Human Regular FOLLOW SLIDING SCALE Q6HR SC 03/16/25 18:00 04/12/25 12:13 2 UNITS Dextrose 50 ml UD IV 03/16/25 17:15 Folic Acid 1 mg/ Dextrose 50.2 ml @ 200.8 mls/ hr DAILY INJ 03/17/25 10:00 04/12/25 09:45 200.8 MLS/HR Thiamine HCl 100 mg DAILY IV 03/18/25 10:00 04/12/25 09:08 100 MG Atorvastatin Calcium 40 mg HS PO 03/17/25 22:00 Hold Sucralfate 1 gm QID@0600,1130,1700,2200 GT 03/23/25 17:00 04/12/25 18:04 1 GM Pantoprazole Sodium 40 mg BID IV 03/26/25 22:00 04/12/25 09:08 40 MG Levalbuterol HCl 0.625 mg Q6HR NEB 03/28/25 12:00 04/12/25 11:31 0.625 MG Nicotine 1 patch DAILY TD 03/29/25 10:00 04/12/25 09:10 1 PATCH Lorazepam 0.5 mg [id number] PRN IV 03/28/25 19:30 04/07/25 04:09 0.5 MG Clonidine HCl 0.2 mg TID PO 03/29/25 14:00 Hold 04/02/25 14:57 0.2 MG Losartan Potassium 100 mg DAILY PO 03/30/25 10:00 04/12/25 09:09 100 MG Ondansetron HCl 4 mg Q4HPRN PRN IV 04/03/25 10:00 04/07/25 18:10 4 MG Amino Acids 0 ml @ 0 mls/hr PER PHARMACY IV 04/03/25 10:00 Labetalol HCl 5 mg Q4HP PRN IV 04/03/25 11:30 04/11/25 17:07 5 MG Lidocaine HCl 0.5 ml ONCE PRN ID 04/03/25 16:45 04/03/25 17:30 0.5 ML Sodium Chloride 10 ml QSHIFT@10,22 IV 04/03/25 22:00 04/12/25 09:09 10 ML Enteral Nutritional Formula 240 ml TIDWM PO 04/06/25 08:00 04/12/25 18:03 240 ML Lactated Ringer's 1,000 ml @ 75 mls/hr [id number] IV 04/07/25 13:00 04/11/25 10:20 75 MLS/HR Amoxicillin/ Clavulanate Potassium 875 mg Q12HR PO 04/10/25 13:41 04/12/25 09:45 875 MG Linezolid 600 mg BID PO 04/10/25 13:41 04/12/25 09:45 600 MG Fat Emulsion Intravenous 200 ml/Sodium Chloride 80 meq/ Sodium Acetate 10 meq/Sodium Phosphate 10 meq/ Potassium Acetate 20 meq/Potassium Phosphate 22 meq/ Calcium Gluconate 2.3 meq/Magnesium Sulfate 14 meq/ Multivitamins 10 ml/Chromium/ Copper/Manganese/ Zinc 1 ml/Amino Acids/Dextrose 1,511.9462 ml @ 63 mls/hr Q24H IV 04/11/25 22:00 04/12/25 21:59 04/11/25 22:38 63 MLS/HR Fat Emulsion Intravenous 200 ml/Sodium Chloride 80 meq/ Sodium Acetate 20 meq/Potassium Acetate 20 meq/ Potassium Phosphate 22 meq/ Calcium Gluconate 2.32 meq/ Magnesium Sulfate 12 meq/ Multivitamins 10 ml/Chromium/ Copper/Manganese/ Zinc 1 ml/Amino Acids/Dextrose 1,513.9892 ml @ 63 mls/hr Q24H2M IV 04/12/25 22:00 04/13/25 21:59 objective General-cachectic male HEENT-normocephalic, no icterus, no pallor, neck supple Respiratory-fair air entry bilateral, no rhonchi, no wheeze [id number] heard, no murmurs appreciated Abdominal-soft, nontender, nondistended Musculoskeletal-no pedal edema, no calf tenderness Genitourinary-deferred Neuro-awake alert oriented x3, Psychiatric-not agitated, cooperative, laboratory and microbiology Laboratory Tests 04/12/25 06:06 Test 04/12/25 06:06 Range/Units Serum Glucose 115 H 74-106 mg/dL Problems(with codes): (1) Elevated liver enzymes (2) C. difficile colitis (3) TIA (transient ischemic attack) (4) Altered mental status (5) Choledocholithiasis (6) Elevated liver function tests (7) Gallstone (8) Duodenal ulcer disease Prognosis Plan Continue to monitor labs CBC BMP in a.m. Rising alk-phos concerning for possible residual CBD stone Patient will likely need a repeat T-tube cholangiogram prior to removal of the T-tube This can likely be done as an outpatient with possible IR involvement in retrieving need residual CBD stone prior to removal of T-tube Continue current medical management Discharge planning ongoing Dietary Evaluation Review Recommendations by RD: Increase Calorie Intake, PPN/TPN Comments: Pt meets criteria 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 based on severe wt loss 35lb/24% in 5 month, intake <50% estimated requirement x 5 days, severe muscle wasting and fat depletion Nutrition Recommendation: 1) PPN/TPN if NPO continues 2) Advance to soft diet as medically feasible 3) Ensure Enlive 240ml TID if pt resumes PO diet 4) Monitor NPO status, lab values, weight trend, and I/O Expected Outcomes/Goals: Intake to meet >75% estimated needs GI symptoms to improve Fu 2-3 days Food and Nutrition Intake (Sev: <50% est energy req 5days Interpretation of weight loss: >10% in 6 months Body Fat Depletion (Severe): Mod to Severe Depletion Muscle Mass (Severe): Mod to Severe Depletion Protein Calorie Malnutrition: Severe Is there a minimum of two crit: Yes Plan discussed with: Patient CC Plasma Assessment Blood Product Administration S: [id number] GURJIT NOBLE MD Apr 12, 2025 18:18
--- NOTE | 2025-04-12 21:48 | DVHPN2 ---
Progress Note - Dictate Date Seen: Apr 12, 2025 Medical Necessity Reason Pt with a Central, PICC or Fol: Yes The following are medically ne: Barrios Catheter Subjective Mr. Perez is a 49 years old right-handed gentleman with a history of hypertension, dyslipidemia, multiple strokes, DVT, he was brought to the [facility] on 03/11/2025 with a chief complaint of diarrhea, history is obtained from his , the chart review I saw him on 08/23/2023 for TIA, 10/27/2024 for encephalopathy I have seen and examined the patient, I have talked to his nurse, oriented to person, place, he knows year and the month, his voice is slurry, he follows verbal commands, No obvious improvement in the right hemiparesis Stool occult blood, 03/13/2025, 03/29/2025: Positive UDS, 03/12/2025: Negative Plasma alcohol, 03/12/2025: <3 Urinalysis, 03/12/2025: WBC: One, urine leukocyte esterase: Negative ABG, 03/16/25: Hypoxia, respiratory acidosis WBC/Hb/PLT'/MCV, 03/16/25: 10.l 6/7.9/339/82.4, 04/10/2020 5:30 a.m. 0.9/9/349/83.4 Na, 03/11/2025: 129, 03/12/2025: 130, 129, 03/15/25: 145, 03/16/25: 142 BUNs/CR, 08/22/2023: 15/1.45, 03/11/2025: 55/1.77, 03/13/2025: 43/1.58, 02/2725: 65/2.56 GFR, 08/22/2023: 59 TBI/AST/ALT/AP: 0.8/269/450/398 TG/CHO L/LDL/HDL, 08/2023: 136/166/111/39 Vitamin B12, 03/12/25: 852 Folic acid, 03/12/2025: 12.28 TSH, 08/23/2023: 4.25 Ultrasound, 03/24/2025: Gallbladder entirely distended with sludge with gallbladder wall thickening and pericholecystic edema, concerning for cholecystitis. Recommend surgical consultation HIDA scan. Dilated common bile duct measuring 16 mm which can be further evaluated with MRCP. Echogenic liver which can be seen with hepatic steatosis, cirrhosis. Right pleural effusion Extremity venous study, right arm, 11/09/2024: Thrombus is seen in the cephalic vein in the forearm. DONAL, 08/23/2023: 1. No evidence of intracardiac source of embolus in the study conducted today. 2. Normal valves without significant masses or change vegetations were discernible. 3. No evidence of intra-atrial shunting by bubble study and color Doppler. 4. Mild atherosclerotic plaquing was visualized in the arch of the aorta without evidence of dissection in the visualized part EGD, 03/13/2025: 1. 1-2 cm sliding-type hiatal hernia with severe grade C linear erosive esophagitis with esophageal ulcers extending into the distal 15 cm of the esophagus 2. Patient had a persistent duodenal bulb ulcer seen just inside the pyloric opening which was large coalescing with a visible sutures; there was no active bleeding or visible vessel but there was acute on chronic inflammation 3. Patient had deformity of the postbulbar duodenal area and I was able to see the 2nd part of the duodenum but there was area of debris and ongoing chronic ulceration inflammation and the endoscope was not advanced beyond this area 3. Patient had mild gastritis and some old coffee-ground within the stomach Chest x-ray, 03/12/2025: Mild chronic appearing left basilar pulmonary airspace disease and possible small pleural effusion Chest x-ray, 03/13/2025: 1. Enteric tube terminates in the stomach. 2. Worsening bilateral interstitial and alveolar opacities. Chest x-ray, : Endotracheal tube and right IJ approach central venous catheters are in satisfactory position. Trace keua-bsncsgm-aezf-right pleural effusions with right retro lower lung zone linear atelectasis/ fluid within the fissure. CT head, 10/24/2024: 1. No intracranial hemorrhage or mass effect. 2. Hbld-ai-smhheqij chronic microvascular ischemic changes. 3. Old bilateral basal ganglia lacunar infarcts. 4. Small bilateral mastoid effusions. CT head, 03/17/2025: 1. New medial right parieto-occipital focal region of diminished parenchymal attenuation within the medial right parietal occipital lobes. This is concerning for an acute to subacute infarct. Recommend further evaluation with MRI. 2. No evidence of acute intracranial hemorrhage, mass effect or hydrocephalus. 3. Chronic sequelae of microangiopathy and atrophic cortical volume loss.4. Multifocal chronic lacunar infarcts as outlined above. CT abdomen/pelvis, 10/04/2024: 1. Extensive intra-abdominal free air concerning for perforated viscus. Surgical consultation is recommended. 2. Enteritis is seen in multiple loops of small bowel in the left hemiabdomen. 3. Moderate abdominopelvic ascites. 4. Small right pleural effusion. CTA neck, head, 08/22/2023:1. CTA head demonstrates no evidence of large vessel occlusion, aneurysm, or significant stenosis. 2. CTA neck demonstrates no evidence of carotid or vertebral dissection or significant stenosis. 3. No noncontrast CT head was performed. 4. Additional findings as detailed above MRI head, 08/23/2023: No acute infarct, intracranial hemorrhage, mass effect, or hydrocephalus. Moderate periventricular and deep subcortical white matter T2 hyperintensities which are nonspecific, but most likely related to sequela of chronic microvascular ischemic changes (I have reviewed the MRI films with our in-house radiologist, Dr. Black, the patient had bilateral multiple subacute/chronic infarcts) MRI head, 11/01/2024: No acute cerebrovascular ischemia. Wugu-lz-biddtmln chronic microvascular ischemic changes. Bilateral mastoid effusions. Old bilateral basal ganglia / lopes radiata infarcts. MR head, 03/16/2025: Infarcts involving multiple vascular territories as described. MRI head, 04/07/2025: 1. No acute infarct, intracranial hemorrhage, mass effect, or hydrocephalus. 2. Persistent although diminished hyperintensity on the diffusion-weighted sequence in the right medial parieto-occipital lobe and left lopes radiata compatible with recent infarcts. vital signs Vital Sign Date Time Temp Pulse Resp B/P (MAP) Pulse Ox O2 Delivery O2 Flow Rate FiO2 04/12/25 21:00 97.7 112 16 149/92 (111) 99 97.7 04/12/25 19:44 Room Air 0.0 04/12/25 19:44 21 Total Intake and Output 04/11/25 04/11/25 04/12/25 15:00 23:00 07:00 Intake Total 520 ml 500 ml Output Total 1120 ml 2100 ml Balance -600 ml -1600 ml medications Current Medications Medications Dose Ordered Sig/Wally Route Start Time Stop Time Status Last Admin Dose Admin Diagnostic Test (Pha) 1 strip Q6HR 03/16/25 18:00 04/12/25 18:03 1 STRIP Insulin Human Regular FOLLOW SLIDING SCALE Q6HR SC 03/16/25 18:00 04/12/25 12:13 2 UNITS Dextrose 50 ml UD IV 03/16/25 17:15 Folic Acid 1 mg/ Dextrose 50.2 ml @ 200.8 mls/ hr DAILY INJ 03/17/25 10:00 04/12/25 09:45 200.8 MLS/HR Thiamine HCl 100 mg DAILY IV 03/18/25 10:00 04/12/25 09:08 100 MG Atorvastatin Calcium 40 mg HS PO 03/17/25 22:00 Hold Sucralfate 1 gm QID@0600,1130,1700,2200 GT 03/23/25 17:00 04/12/25 21:20 1 GM Pantoprazole Sodium 40 mg BID IV 03/26/25 22:00 04/12/25 21:20 40 MG Levalbuterol HCl 0.625 mg Q6HR NEB 03/28/25 12:00 04/12/25 19:44 0.625 MG Nicotine 1 patch DAILY TD 03/29/25 10:00 04/12/25 09:10 1 PATCH Lorazepam 0.5 mg [id number] PRN IV 03/28/25 19:30 04/07/25 04:09 0.5 MG Clonidine HCl 0.2 mg TID PO 03/29/25 14:00 Hold 04/02/25 14:57 0.2 MG Losartan Potassium 100 mg DAILY PO 03/30/25 10:00 04/12/25 09:09 100 MG Ondansetron HCl 4 mg Q4HPRN PRN IV 04/03/25 10:00 04/07/25 18:10 4 MG Amino Acids 0 ml @ 0 mls/hr PER PHARMACY IV 04/03/25 10:00 Labetalol HCl 5 mg Q4HP PRN IV 04/03/25 11:30 04/11/25 17:07 5 MG Lidocaine HCl 0.5 ml ONCE PRN ID 04/03/25 16:45 04/03/25 17:30 0.5 ML Sodium Chloride 10 ml QSHIFT@ IV 04/03/25 22:00 04/12/25 21:21 10 ML Enteral Nutritional Formula 240 ml TIDWM PO 04/06/25 08:00 04/12/25 18:03 240 ML Lactated Ringer's 1,000 ml @ 75 mls/hr [id number] IV 04/07/25 13:00 04/11/25 10:20 75 MLS/HR Amoxicillin/ Clavulanate Potassium 875 mg Q12HR PO 04/10/25 13:41 04/12/25 21:21 875 MG Linezolid 600 mg BID PO 04/10/25 13:41 04/12/25 21:21 600 MG Fat Emulsion Intravenous 200 ml/Sodium Chloride 80 meq/ Sodium Acetate 10 meq/Sodium Phosphate 10 meq/ Potassium Acetate 20 meq/Potassium Phosphate 22 meq/ Calcium Gluconate 2.3 meq/Magnesium Sulfate 14 meq/ Multivitamins 10 ml/Chromium/ Copper/Manganese/ Zinc 1 ml/Amino Acids/Dextrose 1,511.9462 ml @ 63 mls/hr Q24H IV 04/11/25 22:00 04/12/25 21:59 04/11/25 22:38 63 MLS/HR Fat Emulsion Intravenous 200 ml/Sodium Chloride 80 meq/ Sodium Acetate 20 meq/Potassium Acetate 20 meq/ Potassium Phosphate 22 meq/ Calcium Gluconate 2.32 meq/ Magnesium Sulfate 12 meq/ Multivitamins 10 ml/Chromium/ Copper/Manganese/ Zinc 1 ml/Amino Acids/Dextrose 1,513.9892 ml @ 63 mls/hr Q24H2M IV 04/12/25 22:00 04/13/25 21:59 04/12/25 21:20 63 MLS/HR objective The patient is well-nourished and well-developed with no distress. MENTAL STATUS: Subjective CRANIAL NERVES: Pupils are equal, round and reactive. EOMs full and conjugate. Facial sensation intact in all three divisions bilaterally. Mandibular strength intact. Facial muscles symmetrical and strength intact. SENSATION: Okay to touch MOTOR: Normal tone in the upper and lower extremity. Normal muscle bulk. No fasciculations. Muscle power: Right arm: 2-3/5 stronger in the gripping, right le-2/5, left arm: 4/5, left le-4/5 REFLEXES: Deep tendon reflexes are symmetrical, 3-4/4 in the knees and 4/4 in the ankles (stronger in the left ankle). No pathological reflexes. CEREBELLAR/COORDINATION: Deferred GAIT/STATION: deferred. laboratory and microbiology Laboratory Tests 04/12/25 06:06 Test 04/12/25 06:06 Range/Units Serum Glucose 115 H 74-106 mg/dL Problem List Altered mental status Metabolic encephalopathy secondary to sepsis, septic shock, hypernatremia Hypoxic encephalopathy Worsened weakness in the left extremities, left lower extremity on 04/07/2025, MRI she has no new pathology Peptic ulcer, GI bleeding, anemia Respiratory failure Right hemiparesis Acute multiple strokes in different arterial territories (MRI 03/18/25) Multiple chronic strokes Maybe secondary to history methamphetamine, cocaine, alcohol use History of alcohol abuse History of cocaine, methamphetamine abuse Assessment/Plan Monitoring Supportive treatment Occult stool blood IV antibiotics Protonix 40 mg b.i.d. Aspirin 81 mg daily later Lipitor later TPN Thiamine supplementation Folic acid supplementation GI service on case Nephrology service on case More recommended per clinical course This medical document was created using an electronic medical record system with [employer] dictation system. Although this document has been carefully reviewed, there may still be some phonetic and typographical errors. These areas are purely typographical due to imperfect Prognosis poor Dietary Evaluation Review Recommendations by RD: Increase Calorie Intake, PPN/TPN Comments: Pt meets criteria 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 based on severe wt loss 35lb/24% in 5 month, intake <50% estimated requirement x 5 days, severe muscle wasting and fat depletion Nutrition Recommendation: 1) PPN/TPN if NPO continues 2) Advance to soft diet as medically feasible 3) Ensure Enlive 240ml TID if pt resumes PO diet 4) Monitor NPO status, lab values, weight trend, and I/O Expected Outcomes/Goals: Intake to meet >75% estimated needs GI symptoms to improve Fu 2-3 days Food and Nutrition Intake (Sev: <50% est energy req 5days Interpretation of weight loss: >10% in 6 months Body Fat Depletion (Severe): Mod to Severe Depletion Muscle Mass (Severe): Mod to Severe Depletion Protein Calorie Malnutrition: Severe Is there a minimum of two crit: Yes Plan discussed with: Other CC Plasma Assessment Blood Product Administration S: [id number] LEANDRO BLACK MD Apr 12, 2025 21:48
[2025-04-12] MEDS: HYDROcodone-ACET 5/325MG TAB PO PRN (23:32)
[2025-04-13] VITALS (15 sets, daily range): BP systolic 135–159; BP diastolic 88–103; PULSE 103–118; RESP 14–17; TEMP 97.6–98.7; O2SAT 97–100
[2025-04-13 06:16] LABS: Hemoglobin 8.3 g/dL (13.5-17.5)
[2025-04-13 06:17] LABS: Hematocrit 24.8 % (41.0-53.0); Mean Corpuscular Hemoglobin 27.9 pg (28.0-32.0); Mean Corpuscular Volume 83.2 fL (80.0-100.0); Nucleated Red Blood Cells % 0.0 %
[2025-04-13 06:31] LABS: Alanine Aminotransferase 19 U/L (7-40); Anion Gap 11 (5-15); BUN/Creatinine Ratio 39.1 (10.0-20.0); Carbon Dioxide 23 mmol/L (20-31); Chloride 103 mmol/L (98-107); Glucose 106 mg/dL (74-106); Magnesium 2.3 mg/dL (1.6-2.6); Potassium 4.0 mmol/L (3.5-5.1); Sodium 137 mmol/L (136-145); Total Protein 6.5 g/dL (5.7-8.2)
[2025-04-13 06:37] LABS: Albumin 2.8 g/dL (3.2-4.8); Alkaline Phosphatase 183 U/L (46-116); Bilirubin, Total 0.2 mg/dL (0.2-1.0); Blood Urea Nitrogen 34 mg/dL (9-23); Calcium 8.5 mg/dL (8.7-10.4)
--- NOTE | 2025-04-13 14:32 | DVHPN2 ---
Progress Note - Dictate Date Seen: Apr 13, 2025 Medical Necessity Reason Pt with a Central, PICC or Fol: Yes The following are medically ne: Barrios Catheter Subjective Patient is stable awake alert alkaline phosphatase level at 183 Underwent a open cholecystectomy with CBD exploration T-tube was then placed; patient had extensive inflammatory changes around the duodenal area No active GI bleeding reported, hemoglobin stable at 9.0, leukocytosis white count 13 K S/P 4 units PRBC transfused during this admission Hepatitis panel is negative and HIV is negative and ferritin is normal vital signs Vital Sign Date Time Temp Pulse Resp B/P (MAP) Pulse Ox O2 Delivery O2 Flow Rate FiO2 04/13/25 13:00 98.4 118 14 153/97 (115) 98 98.4 04/13/25 12:29 Room Air* 0 21 Total Intake and Output 04/12/25 04/12/25 04/13/25 15:00 23:00 07:00 Intake Total 50.2 ml 1800 ml Output Total 125 ml 225 ml 1325 ml Balance -74.8 ml -225 ml 475 ml medications Current Medications Medications Dose Ordered Sig/Wally Route Start Time Stop Time Status Last Admin Dose Admin Diagnostic Test (Pha) 1 strip Q6HR 03/16/25 18:00 04/13/25 12:12 1 STRIP Insulin Human Regular FOLLOW SLIDING SCALE Q6HR SC 03/16/25 18:00 04/12/25 12:13 2 UNITS Dextrose 50 ml UD IV 03/16/25 17:15 Folic Acid 1 mg/ Dextrose 50.2 ml @ 200.8 mls/ hr DAILY INJ 03/17/25 10:00 04/13/25 11:48 200.8 MLS/HR Thiamine HCl 100 mg DAILY IV 03/18/25 10:00 04/13/25 11:47 100 MG Atorvastatin Calcium 40 mg HS PO 03/17/25 22:00 Hold Sucralfate 1 gm QID@0600,1130,1700,2200 GT 03/23/25 17:00 04/13/25 11:47 1 GM Pantoprazole Sodium 40 mg BID IV 03/26/25 22:00 04/13/25 11:47 40 MG Levalbuterol HCl 0.625 mg Q6HR NEB 03/28/25 12:00 04/13/25 12:32 0.625 MG Nicotine 1 patch DAILY TD 03/29/25 10:00 04/13/25 11:49 1 PATCH Lorazepam 0.5 mg [id number] PRN IV 03/28/25 19:30 04/07/25 04:09 0.5 MG Clonidine HCl 0.2 mg TID PO 03/29/25 14:00 Hold 04/02/25 14:57 0.2 MG Losartan Potassium 100 mg DAILY PO 03/30/25 10:00 04/13/25 11:47 100 MG Ondansetron HCl 4 mg Q4HPRN PRN IV 04/03/25 10:00 04/07/25 18:10 4 MG Amino Acids 0 ml @ 0 mls/hr PER PHARMACY IV 04/03/25 10:00 Labetalol HCl 5 mg Q4HP PRN IV 04/03/25 11:30 04/11/25 17:07 5 MG Lidocaine HCl 0.5 ml ONCE PRN ID 04/03/25 16:45 04/03/25 17:30 0.5 ML Sodium Chloride 10 ml QSHIFT@10,22 IV 04/03/25 22:00 04/13/25 11:47 10 ML Enteral Nutritional Formula 240 ml TIDWM PO 04/06/25 08:00 04/13/25 12:11 240 ML Lactated Ringer's 1,000 ml @ 75 mls/hr [id number] IV 04/07/25 13:00 04/11/25 10:20 75 MLS/HR Amoxicillin/ Clavulanate Potassium 875 mg Q12HR PO 04/10/25 13:41 04/13/25 11:48 875 MG Linezolid 600 mg BID PO 04/10/25 13:41 04/13/25 11:47 600 MG Fat Emulsion Intravenous 200 ml/Sodium Chloride 80 meq/ Sodium Acetate 20 meq/Potassium Acetate 20 meq/ Potassium Phosphate 22 meq/ Calcium Gluconate 2.32 meq/ Magnesium Sulfate 12 meq/ Multivitamins 10 ml/Chromium/ Copper/Manganese/ Zinc 1 ml/Amino Acids/Dextrose 1,513.9892 ml @ 63 mls/hr Q24H2M IV 04/12/25 22:00 04/13/25 21:59 04/12/25 21:20 63 MLS/HR Acetaminophen/ Hydrocodone Bitart 1 tab Q4HPRN PRN PO 04/12/25 23:15 04/13/25 05:26 1 TAB Fat Emulsion Intravenous 200 ml/Sodium Chloride 80 meq/ Sodium Acetate 30 meq/Potassium Acetate 20 meq/ Potassium Phosphate 22 meq/ Calcium Gluconate 2.32 meq/ Magnesium Sulfate 12 meq/ Multivitamins 10 ml/Chromium/ Copper/Manganese/ Zinc 1 ml/Amino Acids/Dextrose 1,518.9892 ml @ 63 mls/hr Q24H7M IV 04/13/25 22:00 04/14/25 21:59 objective General-cachectic male HEENT-normocephalic, no icterus, no pallor, neck supple Respiratory-fair air entry bilateral, no rhonchi, no wheeze [id number] heard, no murmurs appreciated Abdominal-soft, nontender, nondistended Musculoskeletal-no pedal edema, no calf tenderness Genitourinary-deferred Neuro-awake alert oriented x3, Psychiatric-not agitated, cooperative, laboratory and microbiology Laboratory Tests 04/13/25 04:57 Test 04/13/25 04:57 Range/Units Serum Glucose 106 74-106 mg/dL Problems(with codes): (1) Elevated liver function tests (2) Choledocholithiasis (3) C. difficile colitis (4) Elevated liver enzymes (5) Gallstone (6) Duodenal ulcer disease (7) Severe anemia Prognosis Plan Continue to monitor labs CBC BMP in a.m. Monitor alkaline phosphatase Patient will likely need a repeat T-tube cholangiogram prior to removal of the T-tube This can likely be done as an outpatient with possible IR involvement in retrieving need residual CBD stone prior to removal of T-tube Continue current medical management Discharge planning ongoing Dietary Evaluation Review Recommendations by RD: Increase Calorie Intake, PPN/TPN Comments: Pt meets criteria 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 based on severe wt loss 35lb/24% in 5 month, intake <50% estimated requirement x 5 days, severe muscle wasting and fat depletion Nutrition Recommendation: 1) PPN/TPN if NPO continues 2) Advance to soft diet as medically feasible 3) Ensure Enlive 240ml TID if pt resumes PO diet 4) Monitor NPO status, lab values, weight trend, and I/O Expected Outcomes/Goals: Intake to meet >75% estimated needs GI symptoms to improve Fu 2-3 days Food and Nutrition Intake (Sev: <50% est energy req 5days Interpretation of weight loss: >10% in 6 months Body Fat Depletion (Severe): Mod to Severe Depletion Muscle Mass (Severe): Mod to Severe Depletion Protein Calorie Malnutrition: Severe Is there a minimum of two crit: Yes Plan discussed with: Patient CC Plasma Assessment Blood Product Administration S: [id number] GURJIT NOBLE MD Apr 13, 2025 14:32
--- NOTE | 2025-04-13 15:01 | DVHPN2 ---
KWASI MILLAN RESIDENT 04/13/25 1501: Progress Note Date Seen: Apr 13, 2025 Medical Necessity Reason Pt with a Central, PICC or Fol: Yes The following are medically ne: Barrios Catheter Subjective Review of Systems Patient was seen today at bedside labs and chart reviewed Leukocytosis resolved As per social service note"Per Pamela at [facility] she is still waiting for auth from [employer]. Once auth from [employer] is obtained we can send patient over." Objective vital signs Vital Sign Date Time Temp Pulse Resp B/P (MAP) Pulse Ox O2 Delivery O2 Flow Rate FiO2 04/13/25 13:00 98.4 118 14 153/97 (115) 98 98.4 04/13/25 12:29 Room Air* 0 21 Total Intake and Output 04/12/25 04/12/25 04/13/25 15:00 23:00 07:00 Intake Total 50.2 ml 1800 ml Output Total 125 ml 225 ml 1325 ml Balance -74.8 ml -225 ml 475 ml medications Current Medications Medications Dose Ordered Sig/Wally Route Start Time Stop Time Status Last Admin Dose Admin Diagnostic Test (Pha) 1 strip Q6HR 03/16/25 18:00 04/13/25 12:12 1 STRIP Insulin Human Regular FOLLOW SLIDING SCALE Q6HR SC 03/16/25 18:00 04/12/25 12:13 2 UNITS Dextrose 50 ml UD IV 03/16/25 17:15 Folic Acid 1 mg/ Dextrose 50.2 ml @ 200.8 mls/ hr DAILY INJ 03/17/25 10:00 04/13/25 11:48 200.8 MLS/HR Thiamine HCl 100 mg DAILY IV 03/18/25 10:00 04/13/25 11:47 100 MG Atorvastatin Calcium 40 mg HS PO 03/17/25 22:00 Hold Sucralfate 1 gm QID@0600,1130,1700,2200 GT 03/23/25 17:00 04/13/25 11:47 1 GM Pantoprazole Sodium 40 mg BID IV 03/26/25 22:00 04/13/25 11:47 40 MG Levalbuterol HCl 0.625 mg Q6HR NEB 03/28/25 12:00 04/13/25 12:32 0.625 MG Nicotine 1 patch DAILY TD 03/29/25 10:00 04/13/25 11:49 1 PATCH Lorazepam 0.5 mg [id number] PRN IV 03/28/25 19:30 04/07/25 04:09 0.5 MG Clonidine HCl 0.2 mg TID PO 03/29/25 14:00 Hold 04/02/25 14:57 0.2 MG Losartan Potassium 100 mg DAILY PO 03/30/25 10:00 04/13/25 11:47 100 MG Ondansetron HCl 4 mg Q4HPRN PRN IV 04/03/25 10:00 04/07/25 18:10 4 MG Amino Acids 0 ml @ 0 mls/hr PER PHARMACY IV 04/03/25 10:00 Labetalol HCl 5 mg Q4HP PRN IV 04/03/25 11:30 04/11/25 17:07 5 MG Lidocaine HCl 0.5 ml ONCE PRN ID 04/03/25 16:45 04/03/25 17:30 0.5 ML Sodium Chloride 10 ml QSHIFT@10,22 IV 04/03/25 22:00 04/13/25 11:47 10 ML Enteral Nutritional Formula 240 ml TIDWM PO 04/06/25 08:00 04/13/25 12:11 240 ML Lactated Ringer's 1,000 ml @ 75 mls/hr [id number] IV 04/07/25 13:00 04/11/25 10:20 75 MLS/HR Amoxicillin/ Clavulanate Potassium 875 mg Q12HR PO 04/10/25 13:41 04/13/25 11:48 875 MG Linezolid 600 mg BID PO 04/10/25 13:41 04/13/25 11:47 600 MG Fat Emulsion Intravenous 200 ml/Sodium Chloride 80 meq/ Sodium Acetate 20 meq/Potassium Acetate 20 meq/ Potassium Phosphate 22 meq/ Calcium Gluconate 2.32 meq/ Magnesium Sulfate 12 meq/ Multivitamins 10 ml/Chromium/ Copper/Manganese/ Zinc 1 ml/Amino Acids/Dextrose 1,513.9892 ml @ 63 mls/hr Q24H2M IV 04/12/25 22:00 04/13/25 21:59 04/12/25 21:20 63 MLS/HR Acetaminophen/ Hydrocodone Bitart 1 tab Q4HPRN PRN PO 04/12/25 23:15 04/13/25 05:26 1 TAB Fat Emulsion Intravenous 200 ml/Sodium Chloride 80 meq/ Sodium Acetate 30 meq/Potassium Acetate 20 meq/ Potassium Phosphate 22 meq/ Calcium Gluconate 2.32 meq/ Magnesium Sulfate 12 meq/ Multivitamins 10 ml/Chromium/ Copper/Manganese/ Zinc 1 ml/Amino Acids/Dextrose 1,518.9892 ml @ 63 mls/hr Q24H7M IV 04/13/25 22:00 04/14/25 21:59 Examination General Appearance: Alert, Oriented X3 HEENT: Atraumatic, PERRLA, EOMI, Mucous membrane moist/pink Respiratory: Bilateral crackles. Cardiovascular: Regular rate, Normal S1, Normal S2, No murmurs, no chest wall tenderness Abdominal: Surgical wound with dressing on the right upper quadrant with 2 KWAN drain, mildly tender, No hepatosplenomegaly, No masses, decreased bowel sounds Extremities: PICC line on the rt upper arm, No clubbing, No cyanosis, No edema, Normal pulses, No tenderness/swelling Skin: No rashes, No breakdown, No significant lesion Neuro: Normal speech, right-sided weakness, Strength at 5/5 X2 ext, Normal tone, Sensation intact, grossly intact cranial nerves laboratory and microbiology laboratory and microbiology Laboratory Tests 04/13/25 04:57 Test 04/13/25 04:57 Range/Units Serum Glucose 106 74-106 mg/dL Microbiology Date/Time Source Procedure Growth Status 04/11/25 23:14 Nose MRSA Screen - Final Complete 04/08/25 15:30 Blood Blood Culture - Preliminary NO GROWTH AFTER 72 HOURS OF INCUBATION. Resulted 03/16/25 16:06 Sputum Gram Stain - Final Complete 03/16/25 16:06 Respiratory Culture - Final Stenotrophomonas maltophilia Escherichia coli Presumptive Milady albicans Complete 03/13/25 11:53 Stool Stool Culture - Final Complete 03/13/25 11:53 Stool Shiga Toxin I & II - Final Complete 03/12/25 11:55 Urine - Barrios Port Urine Culture - Final Complete Problem List/Assessment/Plan Problem List/Assessment/Plan Problem List/Assessment/Plan NEURO: Acute metabolic encephalopathy secondary to acute ischemic stroke; resolved; able to make decisions; alert and oriented X3 Acute or subacute ischemic stroke Hypertensive emergency Acute anxiety - CT head without contrast demonstrated new medial right parieto-occipital focal region of diminished parenchymal attenuation within the medial right parietal occipital lobes. This is concerning for an acute to subacute infarct with chronic multifocal lacunar infarct - MRI showed Infarcts involving multiple vascular territories involved medial right occipital lobe, posterior left occipital lobe, and left lopes radiata white matter tracts. Few additional tiny foci of diffusion restriction at the anterior right parietal cortex. - Neurology on board - hold aspirin and Plavix for now because of GI bleeding - atorvastatin 40 mg p.o. daily - losartan 100 mg daily and IV labetalol 5 mg q.2h PRN SBP>150 - IV Ativan 0.5 mg q.12 PRN CARDIOVASCULAR: Chronic diastolic heart failure with preserved ejection fraction - Echo on 11/12 demonstrated EF 65%, MILD LVH AND MILD LV DIASTOLIC DYSFUNCTION - elevated BNP - CXR showed Bilateral interstitial opacities, small left basilar consolidation and pleural effusion -continue current conservative managed PULMONARY: Acute hypoxic respiratory failure; to continue oxygen therapy as indicated; currently room air S/P extubation -continue current conservative management GASTROINTESTINAL: 04/03/2025: S/P open cholecystectomy with common bile duct exploration with intrahepatic cholangiogram . Acute GI bleed upper vs lower Partial small Intestinal obstruction likely secondary to fecal impaction. Cholelithiasis C diff positive Elevated alkaline phosphatase -CT abdomen/pelvis showed low-grade distal partial obstruction due to fecal retention. - Gastrografin study showed Contrast is identified within the colon by 3 hours. No evidence of bowel obstruction. -EGD on 03/13/25 showed 1-2 cm sliding-type hiatal hernia with severe grade C linear erosive esophagitis with esophageal ulcers extending into the distal 15 cm of the esophagus persistent duodenal bulb ulcer seen just inside the pyloric opening which was large coalescing with a visible sutures; there was no active bleeding or visible vessel but there was acute on chronic inflammation deformity of the postbulbar duodenal area and but there was area of debris and ongoing chronic ulceration inflammation and the endoscope was not advanced beyond this area mild gastritis and some old coffee-ground within the stomach - GB U/S demonstrated gallbladder wall thickening and pericholecystic edema, concerning for cholecystitis and dilated CBD up to 16 mm. - MRCP scan demonstrated Choledocholithiasis in the mid to distal common bile duct predominantly dependently. - - full liquid diet - continue Augmentin and linezolid p.o. as prescribed - TPN per pharmacy - IV Protonix 40 mg bid - Carafate suspension 1 g q.i.d. - Zofran 4 mg IV q.4 PRN - Monitor Hand H, transfuse if hemoglobin less than 7- 04/06/25: HR elevated, dehydrated, 2 bolus of LR 04/07/25: stable for downgrade. continue LR 75cc/h 04/08/25: patient continues to have elevated wbc, elevated HR, we are adding zyvox to the treatment, new urine, blood and drain culture added. also PT suggested that recovery should be continue in SNF after DC, ordered placed GENITOURINARY: GIOVANI on CKD likely hemodynamically mediated/VMN resolved - Monitor BMP METABOLIC: Hypernatremia Hypokalemia Hypophosphatemia - monitor BMP and replace/correct electrolytes as indicated HEME: Severe microcytic hypochromic anemia due to GI bleeding Iron deficiency due to above Bilateral superficial thrombophlebitis - Patient received 4 units of PRBCs - Monitor H&H INFECTIOUS DISEASE: Acute C diff infection - continue current conservative Nicotine dependence - Nicotine dependence 21 g/24 hours DIET: TPN, full liquid diet DVT prophylax: SCDs due to GI bleed GI prophylaxis: Protonix IV Code status: Full code; goals of care rediscussed with the patient and the patient's for 20 minutes; continues to be full code Patient's status discussed with RN, Patient Time care time spent: 90 minutes, including patient care, chart review, and updating the family. Excluding any procedures. Case discussed with Dr. Medina Plan discussed with: Patient, Other (rn) Plan discussed with: Patient, Spouse, Other (RN) Dietary Evaluation Review Recommendations by RD: Increase Calorie Intake, PPN/TPN Comments: Pt meets criteria 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 based on severe wt loss 35lb/24% in 5 month, intake <50% estimated requirement x 5 days, severe muscle wasting and fat depletion Nutrition Recommendation: 1) PPN/TPN if NPO continues 2) Advance to soft diet as medically feasible 3) Ensure Enlive 240ml TID if pt resumes PO diet 4) Monitor NPO status, lab values, weight trend, and I/O Expected Outcomes/Goals: Intake to meet >75% estimated needs GI symptoms to improve Fu 2-3 days Food and Nutrition Intake (Sev: <50% est energy req 5days Interpretation of weight loss: >10% in 6 months Body Fat Depletion (Severe): Mod to Severe Depletion Muscle Mass (Severe): Mod to Severe Depletion Protein Calorie Malnutrition: Severe Is there a minimum of two crit: Yes Date of Service: Apr 13, 2025 Billing Provider: CRISTA MEDINA MD Common Visit Codes: [id number] INP/OBS CARE(HIGH) CC Plasma Assessment Blood Product Administration S: [id number] CRISTA MEDINA MD 04/19/251955: Common Visit Codes: [id number] INP/OBS CARE(MOD) KWASI MILLAN RESIDENT Apr 13, 2025 15:01 CRISTA MEDINA MD Apr 19, 2025 19:56
--- NOTE | 2025-04-13 16:36 | DVHPN2 ---
Progress Note - Dictate Date Seen: Apr 13, 2025 Medical Necessity Reason Pt with a Central, PICC or Fol: Yes The following are medically ne: Barrios Catheter vital signs Vital Sign Date Time Temp Pulse Resp B/P (MAP) Pulse Ox O2 Delivery O2 Flow Rate FiO2 04/13/25 13:00 98.4 118 14 153/97 (115) 98 98.4 04/13/25 12:29 Room Air* 0 21 Total Intake and Output 04/12/25 04/12/25 04/13/25 15:00 23:00 07:00 Intake Total 50.2 ml 1800 ml Output Total 125 ml 225 ml 1325 ml Balance -74.8 ml -225 ml 475 ml medications Current Medications Medications Dose Ordered Sig/Wally Route Start Time Stop Time Status Last Admin Dose Admin Diagnostic Test (Pha) 1 strip Q6HR 03/16/25 18:00 04/13/25 12:12 1 STRIP Insulin Human Regular FOLLOW SLIDING SCALE Q6HR SC 03/16/25 18:00 04/12/25 12:13 2 UNITS Dextrose 50 ml UD IV 03/16/25 17:15 Folic Acid 1 mg/ Dextrose 50.2 ml @ 200.8 mls/ hr DAILY INJ 03/17/25 10:00 04/13/25 11:48 200.8 MLS/HR Thiamine HCl 100 mg DAILY IV 03/18/25 10:00 04/13/25 11:47 100 MG Atorvastatin Calcium 40 mg HS PO 03/17/25 22:00 Hold Sucralfate 1 gm QID@0600,1130,1700,2200 GT 03/23/25 17:00 04/13/25 11:47 1 GM Pantoprazole Sodium 40 mg BID IV 03/26/25 22:00 04/13/25 11:47 40 MG Levalbuterol HCl 0.625 mg Q6HR NEB 03/28/25 12:00 04/13/25 12:32 0.625 MG Nicotine 1 patch DAILY TD 03/29/25 10:00 04/13/25 11:49 1 PATCH Lorazepam 0.5 mg [id number] PRN IV 03/28/25 19:30 04/07/25 04:09 0.5 MG Clonidine HCl 0.2 mg TID PO 03/29/25 14:00 Hold 04/02/25 14:57 0.2 MG Losartan Potassium 100 mg DAILY PO 03/30/25 10:00 04/13/25 11:47 100 MG Ondansetron HCl 4 mg Q4HPRN PRN IV 04/03/25 10:00 04/07/25 18:10 4 MG Amino Acids 0 ml @ 0 mls/hr PER PHARMACY IV 04/03/25 10:00 Labetalol HCl 5 mg Q4HP PRN IV 04/03/25 11:30 04/11/25 17:07 5 MG Lidocaine HCl 0.5 ml ONCE PRN ID 04/03/25 16:45 04/03/25 17:30 0.5 ML Sodium Chloride 10 ml QSHIFT@10,22 IV 04/03/25 22:00 04/13/25 11:47 10 ML Enteral Nutritional Formula 240 ml TIDWM PO 04/06/25 08:00 04/13/25 12:11 240 ML Lactated Ringer's 1,000 ml @ 75 mls/hr [id number] IV 04/07/25 13:00 04/13/25 15:07 75 MLS/HR Amoxicillin/ Clavulanate Potassium 875 mg Q12HR PO 04/10/25 13:41 04/13/25 11:48 875 MG Linezolid 600 mg BID PO 04/10/25 13:41 04/13/25 11:47 600 MG Fat Emulsion Intravenous 200 ml/Sodium Chloride 80 meq/ Sodium Acetate 20 meq/Potassium Acetate 20 meq/ Potassium Phosphate 22 meq/ Calcium Gluconate 2.32 meq/ Magnesium Sulfate 12 meq/ Multivitamins 10 ml/Chromium/ Copper/Manganese/ Zinc 1 ml/Amino Acids/Dextrose 1,513.9892 ml @ 63 mls/hr Q24H2M IV 04/12/25 22:00 04/13/25 21:59 04/12/25 21:20 63 MLS/HR Acetaminophen/ Hydrocodone Bitart 1 tab Q4HPRN PRN PO 04/12/25 23:15 04/13/25 15:04 1 TAB Fat Emulsion Intravenous 200 ml/Sodium Chloride 80 meq/ Sodium Acetate 30 meq/Potassium Acetate 20 meq/ Potassium Phosphate 22 meq/ Calcium Gluconate 2.32 meq/ Magnesium Sulfate 12 meq/ Multivitamins 10 ml/Chromium/ Copper/Manganese/ Zinc 1 ml/Amino Acids/Dextrose 1,518.9892 ml @ 63 mls/hr Q24H7M IV 04/13/25 22:00 04/14/25 21:59 laboratory and microbiology Laboratory Tests 04/13/25 04:57 Test 04/13/25 04:57 Range/Units Serum Glucose 106 74-106 mg/dL Assessment/Plan Impression Acute hypoxemic respiratory failure Multiple strokes GI bleed Anemia GIOVANI Patient seen and examined Events Low oxygen requirements On 2 liters nasal cannula No acute events S/p cholecystectomy Labs and imaging reviewed Management Supplemental oxygen Titrate to maintain sats 90% or above Incentive spirometry Aspiration precautions Continue antibiotics F/u cultures Bronchodilators Monitor renal function Monitor electrolytes Supplement as needed Monitor hemoglobin F/u GI DVT prophylaxis Dietary Evaluation Review Recommendations by RD: Increase Calorie Intake, PPN/TPN Comments: Pt meets criteria 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 based on severe wt loss 35lb/24% in 5 month, intake <50% estimated requirement x 5 days, severe muscle wasting and fat depletion Nutrition Recommendation: 1) PPN/TPN if NPO continues 2) Advance to soft diet as medically feasible 3) Ensure Enlive 240ml TID if pt resumes PO diet 4) Monitor NPO status, lab values, weight trend, and I/O Expected Outcomes/Goals: Intake to meet >75% estimated needs GI symptoms to improve Fu 2-3 days Food and Nutrition Intake (Sev: <50% est energy req 5days Interpretation of weight loss: >10% in 6 months Body Fat Depletion (Severe): Mod to Severe Depletion Muscle Mass (Severe): Mod to Severe Depletion Protein Calorie Malnutrition: Severe Is there a minimum of two crit: Yes Plan discussed with: Patient CC Plasma Assessment Blood Product Administration S: [id number] VALENTE DEE MD Apr 13, 2025 16:36
[2025-04-13] MEDS: TPN PER PHARMACY IV NR (22:02)
[2025-04-14] VITALS (12 sets, daily range): BP systolic 141–154; BP diastolic 94–104; PULSE 99–111; RESP 16–19; TEMP 97.9–98.3; O2SAT 97–100
[2025-04-14 05:47] LABS: Hematocrit 26.4 % (41.0-53.0); Hemoglobin 8.9 g/dL (13.5-17.5); Mean Corpuscular Hemoglobin 28.3 pg (28.0-32.0); Mean Corpuscular Volume 83.9 fL (80.0-100.0); Nucleated Red Blood Cells % 0.0 %
[2025-04-14 06:00] LABS: Alanine Aminotransferase 20 U/L (7-40); Chloride 102 mmol/L (98-107)
[2025-04-14 06:01] LABS: Anion Gap 10 (5-15); Carbon Dioxide 23 mmol/L (20-31); Potassium 4.2 mmol/L (3.5-5.1)
[2025-04-14 06:02] LABS: Magnesium 2.3 mg/dL (1.6-2.6); Total Protein 7.0 g/dL (5.7-8.2)
[2025-04-14 06:13] LABS: Albumin 3.1 g/dL (3.2-4.8); Alkaline Phosphatase 190 U/L (46-116); Bilirubin, Total 0.3 mg/dL (0.2-1.0); Blood Urea Nitrogen 32 mg/dL (9-23); Calcium 8.7 mg/dL (8.7-10.4); Glucose 120 mg/dL (74-106); Sodium 135 mmol/L (136-145)
[2025-04-14 06:20] LABS: BUN/Creatinine Ratio 39.0 (10.0-20.0)
[2025-04-14 08:48] LABS: Anisocytosis Moderate; Tear Drop Cells FEW
[2025-04-14 08:49] LABS: Ovalocytes FEW
[2025-04-14] MEDS: FERROUS SULFATE 325mg EC TAB PO SCH (10:31)
--- NOTE | 2025-04-14 14:30 | DVHPN2 ---
KWASI MILLAN RESIDENT 04/14/25 1429: Progress Note Date Seen: Apr 14, 2025 Medical Necessity Reason Pt with a Central, PICC or Fol: Yes The following are medically ne: Barrios Catheter Subjective Review of Systems Patient was seen today at bedside Labs and chart reviewed Social service wrote"Per Pamela at [facility] post acute she has received auth for patient and he will be admitted to room [address] Ochoa. Patient will be transported by [facility] between 4pm and 430pm today post discharge. Please call report to [phone]. Johana HUTCHINSON has been notified as well as Anastasia" Spoke to patient's Anastasia-[phone], discussed patient's current medical condition and answered her question. Objective vital signs Vital Sign Date Time Temp Pulse Resp B/P (MAP) Pulse Ox O2 Delivery O2 Flow Rate FiO2 04/14/25 12:33 98.3 106 18 152/99 (116) 98 98.3 04/14/25 07:51 Room Air* 0 21 Total Intake and Output 04/13/25 04/13/25 04/14/25 15:00 23:00 07:00 Intake Total 50.2 ml 250 ml 300 ml Output Total 1350 ml 1250 ml Balance 50.2 ml -1100 ml -950 ml medications Current Medications Medications Dose Ordered Sig/Wally Route Start Time Stop Time Status Last Admin Dose Admin Dextrose 50 ml UD IV 03/16/25 17:15 Cancel Folic Acid 1 mg/ Dextrose 50.2 ml @ 200.8 mls/ hr DAILY INJ 03/17/25 10:00 04/14/25 10:30 200.8 MLS/HR Thiamine HCl 100 mg DAILY IV 03/18/25 10:00 04/14/25 10:30 100 MG Atorvastatin Calcium 40 mg HS PO 03/17/25 22:00 Hold Sucralfate 1 gm QID@0600,1130,1700,2200 GT 03/23/25 17:00 04/14/25 12:08 1 GM Pantoprazole Sodium 40 mg BID IV 03/26/25 22:00 04/14/25 10:29 40 MG Levalbuterol HCl 0.625 mg Q6HR NEB 03/28/25 12:00 04/14/25 12:07 0.625 MG Nicotine 1 patch DAILY TD 03/29/25 10:00 04/14/25 10:29 1 PATCH Lorazepam 0.5 mg [id number] PRN IV 03/28/25 19:30 04/07/25 04:09 0.5 MG Clonidine HCl 0.2 mg TID PO 03/29/25 14:00 Hold 04/02/25 14:57 0.2 MG Losartan Potassium 100 mg DAILY PO 03/30/25 10:00 04/14/25 10:31 100 MG Ondansetron HCl 4 mg Q4HPRN PRN IV 04/03/25 10:00 04/07/25 18:10 4 MG Amino Acids 0 ml @ 0 mls/hr PER PHARMACY IV 04/03/25 10:00 Cancel Labetalol HCl 5 mg Q4HP PRN IV 04/03/25 11:30 04/14/25 05:40 5 MG Lidocaine HCl 0.5 ml ONCE PRN ID 04/03/25 16:45 04/03/25 17:30 0.5 ML Sodium Chloride 10 ml QSHIFT@10,22 IV 04/03/25 22:00 04/14/25 10:30 10 ML Enteral Nutritional Formula 240 ml TIDWM PO 04/06/25 08:00 04/14/25 12:13 240 ML Lactated Ringer's 1,000 ml @ 75 mls/hr [id number] IV 04/07/25 13:00 04/13/25 15:07 75 MLS/HR Amoxicillin/ Clavulanate Potassium 875 mg Q12HR PO 04/10/25 13:41 04/14/25 10:30 875 MG Linezolid 600 mg BID PO 04/10/25 13:41 04/14/25 10:30 600 MG Acetaminophen/ Hydrocodone Bitart 1 tab Q4HPRN PRN PO 04/12/25 23:15 04/14/25 12:08 1 TAB Fat Emulsion Intravenous 200 ml/Sodium Chloride 80 meq/ Sodium Acetate 30 meq/Potassium Acetate 20 meq/ Potassium Phosphate 22 meq/ Calcium Gluconate 2.32 meq/ Magnesium Sulfate 12 meq/ Multivitamins 10 ml/Chromium/ Copper/Manganese/ Zinc 1 ml/Amino Acids/Dextrose 1,518.9892 ml @ 63 mls/hr Q24H7M IV 04/13/25 22:00 04/14/25 21:59 04/13/25 22:02 63 MLS/HR Ferrous Sulfate 325 mg DAILY PO 04/14/25 10:00 04/14/25 10:31 325 MG Fat Emulsion Intravenous 200 ml/Sodium Chloride 100 meq/ Sodium Acetate 30 meq/Potassium Acetate 20 meq/ Potassium Phosphate 22 meq/ Calcium Gluconate 2.32 meq/ Magnesium Sulfate 12 meq/ Multivitamins 10 ml/Chromium/ Copper/Manganese/ Zinc 1 ml/Amino Acids/Dextrose 1,523.9892 ml @ 64 mls/hr [id number] IV 04/14/25 22:00 04/15/25 21:59 Cancel Examination General Appearance: Alert, Oriented X3 HEENT: Atraumatic, PERRLA, EOMI, Mucous membrane moist/pink Respiratory: Bilateral crackles. Cardiovascular: Regular rate, Normal S1, Normal S2, No murmurs, no chest wall tenderness Abdominal: Surgical wound with dressing on the right upper quadrant with 2 KWAN drain, mildly tender, No hepatosplenomegaly, No masses, decreased bowel sounds Extremities: PICC line on the rt upper arm, No clubbing, No cyanosis, No edema, Normal pulses, No tenderness/swelling Skin: No rashes, No breakdown, No significant lesion Neuro: Normal speech, right-sided weakness, Strength at 5/5 X2 ext, Normal tone, Sensation intact, grossly intact cranial nerves laboratory and microbiology Laboratory Tests 04/14/25 05:10 Test 04/14/25 05:10 Range/Units Serum Glucose 120 H 74-106 mg/dL Microbiology Date/Time Source Procedure Growth Status 04/11/25 23:14 Nose MRSA Screen - Final Complete 04/08/25 15:30 Blood Blood Culture - Final NO GROWTH AFTER 5 DAYS OF INCUBATION. Complete 03/16/25 16:06 Sputum Gram Stain - Final Complete 03/16/25 16:06 Respiratory Culture - Final Stenotrophomonas maltophilia Escherichia coli Presumptive Milady albicans Complete 03/13/25 11:53 Stool Stool Culture - Final Complete 03/13/25 11:53 Stool Shiga Toxin I & II - Final Complete 03/12/25 11:55 Urine - Barrios Port Urine Culture - Final Complete Problem List/Assessment/Plan Problem List/Assessment/Plan Problem List/Assessment/Plan-as patient is still service patient got a bed [facility] and scheduled to live tonight between 4:00 p.m. to 4:30 p.m. tapering off TPN then DC NEURO: Acute metabolic encephalopathy secondary to acute ischemic stroke; resolved; able to make decisions; alert and oriented X3 Acute or subacute ischemic stroke Hypertensive emergency Acute anxiety - CT head without contrast demonstrated new medial right parieto-occipital focal region of diminished parenchymal attenuation within the medial right parietal occipital lobes. This is concerning for an acute to subacute infarct with chronic multifocal lacunar infarct - MRI showed Infarcts involving multiple vascular territories involved medial right occipital lobe, posterior left occipital lobe, and left lopes radiata white matter tracts. Few additional tiny foci of diffusion restriction at the anterior right parietal cortex. - Neurology on board - hold aspirin and Plavix for now because of GI bleeding - atorvastatin 40 mg p.o. daily - losartan 100 mg daily and IV labetalol 5 mg q.2h PRN SBP>150 - IV Ativan 0.5 mg q.12 PRN CARDIOVASCULAR: Chronic diastolic heart failure with preserved ejection fraction - Echo on 11/12 demonstrated EF 65%, MILD LVH AND MILD LV DIASTOLIC DYSFUNCTION - elevated BNP - CXR showed Bilateral interstitial opacities, small left basilar consolidation and pleural effusion -continue current conservative managed PULMONARY: Acute hypoxic respiratory failure; to continue oxygen therapy as indicated; currently room air S/P extubation -continue current conservative management GASTROINTESTINAL: 04/03/2025: S/P open cholecystectomy with common bile duct exploration with intrahepatic cholangiogram . Acute GI bleed upper vs lower Partial small Intestinal obstruction likely secondary to fecal impaction. Cholelithiasis C diff positive Elevated alkaline phosphatase -CT abdomen/pelvis showed low-grade distal partial obstruction due to fecal retention. - Gastrografin study showed Contrast is identified within the colon by 3 hours. No evidence of bowel obstruction. -EGD on 03/13/25 showed 1-2 cm sliding-type hiatal hernia with severe grade C linear erosive esophagitis with esophageal ulcers extending into the distal 15 cm of the esophagus persistent duodenal bulb ulcer seen just inside the pyloric opening which was large coalescing with a visible sutures; there was no active bleeding or visible vessel but there was acute on chronic inflammation deformity of the postbulbar duodenal area and but there was area of debris and ongoing chronic ulceration inflammation and the endoscope was not advanced beyond this area mild gastritis and some old coffee-ground within the stomach - GB U/S demonstrated gallbladder wall thickening and pericholecystic edema, concerning for cholecystitis and dilated CBD up to 16 mm. - MRCP scan demonstrated Choledocholithiasis in the mid to distal common bile duct predominantly dependently. - - full liquid diet - continue Augmentin and linezolid p.o. as prescribed - TPN per pharmacy-tapering off then DC - IV Protonix 40 mg bid - Carafate suspension 1 g q.i.d. - Zofran 4 mg IV q.4 PRN - Monitor Hand H, transfuse if hemoglobin less than 7- GENITOURINARY: GIOVANI on CKD likely hemodynamically mediated/VMN resolved - Monitor BMP METABOLIC: Hypernatremia Hypokalemia Hypophosphatemia - monitor BMP and replace/correct electrolytes as indicated HEME: Severe microcytic hypochromic anemia due to GI bleeding Iron deficiency due to above Bilateral superficial thrombophlebitis - Patient received 4 units of PRBCs - Monitor H&H INFECTIOUS DISEASE: Acute C diff infection - continue current conservative Nicotine dependence - Nicotine dependence 21 g/24 hours DIET: TPN, full liquid diet DVT prophylax: SCDs due to GI bleed GI prophylaxis: Protonix IV Code status: Full code; goals of care rediscussed with the patient and the patient's for 20 minutes; continues to be full code Patient's status discussed with RN, Patient Time care time spent: 35 minutes, including patient care, chart review, and updating the family. Excluding any procedures. Case discussed with Dr. Medina Plan discussed with: Patient, Other (rn) Plan discussed with: Patient, Spouse, Other (RN) My Orders My Orders Orders - KWASI MILLAN RESIDENT Procedure Category Date Status Time Ferrous Sulfate Tablet PHA 04/14/25 In Process 10:00 Mrsa Screen HOLA 04/14/25 Uncollected 11:51 Dietary Evaluation Review Recommendations by RD: Increase Calorie Intake, PPN/TPN Comments: Pt meets criteria 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 based on severe wt loss 35lb/24% in 5 month, intake <50% estimated requirement x 5 days, severe muscle wasting and fat depletion Nutrition Recommendation: 1) PPN/TPN if NPO continues 2) Advance to soft diet as medically feasible 3) Ensure Enlive 240ml TID if pt resumes PO diet 4) Monitor NPO status, lab values, weight trend, and I/O Expected Outcomes/Goals: Intake to meet >75% estimated needs GI symptoms to improve Fu 2-3 days Food and Nutrition Intake (Sev: <50% est energy req 5days Interpretation of weight loss: >10% in 6 months Body Fat Depletion (Severe): Mod to Severe Depletion Muscle Mass (Severe): Mod to Severe Depletion Protein Calorie Malnutrition: Severe Is there a minimum of two crit: Yes Date of Service: Apr 14, 2025 Billing Provider: KWASI MILLAN Common Visit Codes: [id number] INP/OBS CARE(HIGH) CC Plasma Assessment Blood Product Administration S: [id number] CRISTA MEDINA MD 04/19/251956: KWASI MILLAN Apr 14, 2025 14:29 CRISTA MEDINA MD Apr 19, 2025 19:57
--- NOTE | 2025-04-14 17:20 | DVHPN2 ---
Progress Note - Dictate Date Seen: Apr 14, 2025 Medical Necessity Reason Pt with a Central, PICC or Fol: Yes The following are medically ne: Barrios Catheter vital signs Vital Sign Date Time Temp Pulse Resp B/P (MAP) Pulse Ox O2 Delivery O2 Flow Rate FiO2 04/14/25 15:15 98.1 101 17 04/14/25 12:33 152/99 (116) 98 04/14/25 08:00 Room Air* 0 21 Total Intake and Output 04/13/25 04/13/25 04/14/25 15:00 23:00 07:00 Intake Total 50.2 ml 250 ml 300 ml Output Total 1350 ml 1250 ml Balance 50.2 ml -1100 ml -950 ml medications Current Medications Medications Dose Ordered Sig/Wally Route Start Time Stop Time Status Last Admin Dose Admin Dextrose 50 ml UD IV 03/16/25 17:15 Cancel Folic Acid 1 mg/ Dextrose 50.2 ml @ 200.8 mls/ hr DAILY INJ 03/17/25 10:00 04/14/25 10:30 200.8 MLS/HR Thiamine HCl 100 mg DAILY IV 03/18/25 10:00 04/14/25 10:30 100 MG Atorvastatin Calcium 40 mg HS PO 03/17/25 22:00 Hold Sucralfate 1 gm QID@0600,1130,1700,2200 GT 03/23/25 17:00 04/14/25 12:08 1 GM Pantoprazole Sodium 40 mg BID IV 03/26/25 22:00 04/14/25 10:29 40 MG Levalbuterol HCl 0.625 mg Q6HR NEB 03/28/25 12:00 04/14/25 12:07 0.625 MG Nicotine 1 patch DAILY TD 03/29/25 10:00 04/14/25 10:29 1 PATCH Lorazepam 0.5 mg [id number] PRN IV 03/28/25 19:30 04/07/25 04:09 0.5 MG Clonidine HCl 0.2 mg TID PO 03/29/25 14:00 Hold 04/02/25 14:57 0.2 MG Losartan Potassium 100 mg DAILY PO 03/30/25 10:00 04/14/25 10:31 100 MG Ondansetron HCl 4 mg Q4HPRN PRN IV 04/03/25 10:00 04/07/25 18:10 4 MG Amino Acids 0 ml @ 0 mls/hr PER PHARMACY IV 04/03/25 10:00 Cancel Labetalol HCl 5 mg Q4HP PRN IV 04/03/25 11:30 04/14/25 05:40 5 MG Lidocaine HCl 0.5 ml ONCE PRN ID 04/03/25 16:45 04/03/25 17:30 0.5 ML Sodium Chloride 10 ml QSHIFT@10,22 IV 04/03/25 22:00 04/14/25 10:30 10 ML Enteral Nutritional Formula 240 ml TIDWM PO 04/06/25 08:00 04/14/25 12:13 240 ML Lactated Ringer's 1,000 ml @ 75 mls/hr [id number] IV 04/07/25 13:00 04/13/25 15:07 75 MLS/HR Amoxicillin/ Clavulanate Potassium 875 mg Q12HR PO 04/10/25 13:41 04/14/25 10:30 875 MG Linezolid 600 mg BID PO 04/10/25 13:41 04/14/25 10:30 600 MG Acetaminophen/ Hydrocodone Bitart 1 tab Q4HPRN PRN PO 04/12/25 23:15 04/14/25 12:08 1 TAB Fat Emulsion Intravenous 200 ml/Sodium Chloride 80 meq/ Sodium Acetate 30 meq/Potassium Acetate 20 meq/ Potassium Phosphate 22 meq/ Calcium Gluconate 2.32 meq/ Magnesium Sulfate 12 meq/ Multivitamins 10 ml/Chromium/ Copper/Manganese/ Zinc 1 ml/Amino Acids/Dextrose 1,518.9892 ml @ 63 mls/hr Q24H7M IV 04/13/25 22:00 04/14/25 21:59 04/13/25 22:02 63 MLS/HR Ferrous Sulfate 325 mg DAILY PO 04/14/25 10:00 04/14/25 10:31 325 MG Fat Emulsion Intravenous 200 ml/Sodium Chloride 100 meq/ Sodium Acetate 30 meq/Potassium Acetate 20 meq/ Potassium Phosphate 22 meq/ Calcium Gluconate 2.32 meq/ Magnesium Sulfate 12 meq/ Multivitamins 10 ml/Chromium/ Copper/Manganese/ Zinc 1 ml/Amino Acids/Dextrose 1,523.9892 ml @ 64 mls/hr [id number] IV 04/14/25 22:00 04/15/25 21:59 Cancel laboratory and microbiology Laboratory Tests 04/14/25 05:10 Test 04/14/25 05:10 Range/Units Serum Glucose 120 H 74-106 mg/dL Assessment/Plan Impression Acute hypoxemic respiratory failure Multiple strokes GI bleed Anemia GIOVANI Patient seen and examined Events Low oxygen requirements On 2 liters nasal cannula No distress S/p cholecystectomy Labs and imaging reviewed Management Supplemental oxygen Titrate to maintain sats 90% or above Incentive spirometry Aspiration precautions Continue antibiotics F/u cultures Bronchodilators Monitor renal function Monitor electrolytes Supplement as needed Monitor hemoglobin F/u GI DVT prophylaxis Dietary Evaluation Review Recommendations by RD: Increase Calorie Intake, PPN/TPN Comments: Pt meets criteria 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 based on severe wt loss 35lb/24% in 5 month, intake <50% estimated requirement x 5 days, severe muscle wasting and fat depletion Nutrition Recommendation: 1) PPN/TPN if NPO continues 2) Advance to soft diet as medically feasible 3) Ensure Enlive 240ml TID if pt resumes PO diet 4) Monitor NPO status, lab values, weight trend, and I/O Expected Outcomes/Goals: Intake to meet >75% estimated needs GI symptoms to improve Fu 2-3 days Food and Nutrition Intake (Sev: <50% est energy req 5days Interpretation of weight loss: >10% in 6 months Body Fat Depletion (Severe): Mod to Severe Depletion Muscle Mass (Severe): Mod to Severe Depletion Protein Calorie Malnutrition: Severe Is there a minimum of two crit: Yes Plan discussed with: Patient CC Plasma Assessment Blood Product Administration S: [id number] VALENTE DEE MD Apr 14, 2025 17:20
[2025-04-14] MEDS ORDERED: TPN PER PHARMACY IV NR (22:00)
== END 2025-04-14 16:15 | DRG 853 ==
LOC: ER 15:38 → OVERFLOW 23:56 → EAST 03-12 23:29 → TELE-EAST 03-13 09:07 → TELE-CENTR 03-14 15:24 → TELE-EAST 03-14 16:17 → ICU WEST 03-16 16:21 → TELE-CENTR 04-07 12:50
PROVIDERS: ADMIT Internal Medicine Geriatric Medicine; ATTEND Internal Medicine Geriatric Medicine
PROC: 30233N1 Transfusion of Nonautologous Red Blood Cells into Peripheral Vein, Percutaneous Approach (ICD-10-PCS; 2025-03-11)
PROC: 0DB58ZX Excision of Esophagus, Via Natural or Artificial Opening Endoscopic, Diagnostic (ICD-10-PCS; 2025-03-13)
PROC: 0DB68ZX Excision of Stomach, Via Natural or Artificial Opening Endoscopic, Diagnostic (ICD-10-PCS; 2025-03-13)
PROC: 0BH17EZ Insertion of Endotracheal Airway into Trachea, Via Natural or Artificial Opening (ICD-10-PCS; 2025-03-16)
PROC: 5A1955Z Respiratory Ventilation, Greater than 96 Consecutive Hours (ICD-10-PCS; 2025-03-16)
PROC: 02HV33Z Insertion of Infusion Device into Superior Vena Cava, Percutaneous Approach (ICD-10-PCS; 2025-03-16)
PROC: B548ZZA Ultrasonography of Superior Vena Cava, Guidance (ICD-10-PCS; 2025-03-16)
PROC: 5A09357 Assistance with Respiratory Ventilation, Less than 24 Consecutive Hours, Continuous Positive Airway Pressure (ICD-10-PCS; 2025-03-16)
PROC: 5A09357 Assistance with Respiratory Ventilation, Less than 24 Consecutive Hours, Continuous Positive Airway Pressure (ICD-10-PCS; 2025-03-28)
PROC: 5A09357 Assistance with Respiratory Ventilation, Less than 24 Consecutive Hours, Continuous Positive Airway Pressure (ICD-10-PCS; 2025-03-29)
PROC: 5A0935A Assistance with Respiratory Ventilation, Less than 24 Consecutive Hours, High Flow/Velocity Cannula (ICD-10-PCS; 2025-03-29)
PROC: 3C1ZX8Z Irrigation of Indwelling Device using Irrigating Substance, External Approach (ICD-10-PCS; 2025-04-03)
PROC: BF502Z0 Other Imaging of Bile Ducts using Fluorescing Agent, Intraoperative (ICD-10-PCS; 2025-04-03)
PROC: 0FT40ZZ Resection of Gallbladder, Open Approach (ICD-10-PCS; principal; 2025-04-03 07:38)
DX: A41.9 Sepsis, unspecified organism (principal); E43 Unspecified severe protein-calorie malnutrition; K22.11 Ulcer of esophagus with bleeding; G93.41 Metabolic encephalopathy; N17.0 Acute kidney failure with tubular necrosis; R65.21 Severe sepsis with septic shock; G04.90 Encephalitis and encephalomyelitis, unspecified; J18.9 Pneumonia, unspecified organism; J96.01 Acute respiratory failure with hypoxia; K26.4 Chronic or unspecified duodenal ulcer with hemorrhage; K29.71 Gastritis, unspecified, with bleeding; A04.72 Enterocolitis due to Clostridium difficile, not specified as recurrent; J44.0 Chronic obstructive pulmonary disease with (acute) lower respiratory infection; Z93.0 Tracheostomy status; I13.0 Hypertensive heart and chronic kidney disease with heart failure and stage 1 through stage 4 chronic kidney disease, or unspecified chronic kidney disease; D50.0 Iron deficiency anemia secondary to blood loss (chronic); F15.10 Other stimulant abuse, uncomplicated; E87.0 Hyperosmolality and hypernatremia; K80.64 Calculus of gallbladder and bile duct with chronic cholecystitis without obstruction; E87.29 Other acidosis; I16.1 Hypertensive emergency; I50.32 Chronic diastolic (congestive) heart failure; J98.11 Atelectasis; Z68.1 Body mass index [BMI] 19.9 or less, adult; R18.8 Other ascites; K56.609 Unspecified intestinal obstruction, unspecified as to partial versus complete obstruction; E83.51 Hypocalcemia; E83.39 Other disorders of phosphorus metabolism; E87.6 Hypokalemia; K44.9 Diaphragmatic hernia without obstruction or gangrene; E86.0 Dehydration; E86.1 Hypovolemia; M62.50 Muscle wasting and atrophy, not elsewhere classified, unspecified site; E78.5 Hyperlipidemia, unspecified; F10.90 Alcohol use, unspecified, uncomplicated; Y90.0 Blood alcohol level of less than 20 mg/100 ml; F17.210 Nicotine dependence, cigarettes, uncomplicated; F17.290 Nicotine dependence, other tobacco product, uncomplicated; F41.9 Anxiety disorder, unspecified; G90.9 Disorder of the autonomic nervous system, unspecified; K59.00 Constipation, unspecified; I80.9 Phlebitis and thrombophlebitis of unspecified site; K82.8 Other specified diseases of gallbladder; N18.2 Chronic kidney disease, stage 2 (mild); Z63.4 Disappearance and death of family member; Z79.82 Long term (current) use of aspirin; Z79.899 Other long term (current) drug therapy; Z80.1 Family history of malignant neoplasm of trachea, bronchus and lung; Z82.3 Family history of stroke; Z82.49 Family history of ischemic heart disease and other diseases of the circulatory system; Z82.5 Family history of asthma and other chronic lower respiratory diseases; Z83.3 Family history of diabetes mellitus; Z86.718 Personal history of other venous thrombosis and embolism; Z86.73 Personal history of transient ischemic attack (TIA), and cerebral infarction without residual deficits; Z99.81 Dependence on supplemental oxygen
CPT/HCPCS: 36415; 36430; 36569; 36600; 70450; 70551; 71045; 74018; 74176; 74181; 74250; 74300; 76705; 76775; 76937; 80048; 80053; 80069; 80076; 80307; 80320; 81001; 82140; 82150; 82247; 82270; 82306; 82570; 82607; 82728; 82746; 82805; 82962; 83540; 83550; 83605; 83615; 83735; 83880; 83970; 84100; 84132; 84156; 84300; 84443; 84478; 85014; 85018; 85025; 85045; 85610; 85730; 86703; 86704; 86706; 86708; 86803; 86850; 86900; 86901; 86920; 87040; 87045; 87070; 87075; 87077; 87081; 87086; 87186; 87205; 87340; 87427; 87493; 92610; 93005; 93970; 94002; 94003; 94640; 94660; 95819; 96361; 96374; 97110; 97116; 97163; 97530; 99291; G0378; J0131; J0169; J0330; J1100; J1756; J1815; J2003; J2250; J2405; J2470; J2704; J3480; J3490; J7060; J7131